=== PATIENT | female | born 1955 | race Caucasian/White ===

== ENCOUNTER → 2018-04-22 12:13 | Outpatient (CLI) | payer BC, SELFPAY ==
[2018-04-22 15:37] LABS: Absolute Lymphocyte Count 2.57 X10^3/ul (0.83-4.51); Absolute Neutrophil Count 6.4 X10^3/uL (2.0-7.7); Basophil# 0.02 X10^3/uL; Basophil% 0.2 % (0-1); Eosinophil# 0.35 X10^3/uL; Eosinophils% 3.4 % (0-5); Hematocrit 35.6 % (37-47); Hemoglobin 10.9 g/dl (12.0-15.0); Lymphocyte # 2.57 X10^3/ul (4.0); Lymphocyte % 24.9 % (19-41); Mean Corp Hgb Conc 30.6 g/gl (32-36); Mean Corpuscular Hgb 29.2 pg (27.0-32.0); Mean Corpuscular Volume 95.4 fL (81-99); Mean Platelet Vol. 9.8 fl (6.2-12.0); Monocyte# 0.96 X10^3/uL; Monocyte% 9.3 % (0-10); Neutrophil % 62.1 % (47-70); Platelet Count 319 K/mm3 (150-450); RBC Distribution Width CV 14.8 % (11.6-14.6); RBC Distribution Width SD 51.7 fl (35.1-43.9); Red Blood Count 3.73 M/mm3 (4.2-5.4); White Blood Count 10.3 K/mm3 (4.4-11.0)
[2018-04-22 15:47] LABS: POSITIVE COUNT NO; POSITIVE DIFFERENTIAL NO; POSITIVE MORPHOLOGY NO
[2018-04-22 16:05] LABS: ALB/GLOB Ratio 0.8 RATIO (0.9-2.4); AST(SGOT) 16 U/L (15-37); Alanine Aminotransfer ALT/SGPT 22 U/L (13-56); Albumin, Serum 3.1 g/dL (3.2-5.0); Alkaline Phosphatase 91 U/L (45-117); Anion Gap 6 (5-15); BUN 21 mg/dL (7-18); Calcium,Total 8.7 mg/dL (8.5-10.1); Chloride 103 mmol/L (98-107); Creatinine, Serum 0.75 mg/dL (0.55-1.02); EST Glomerular Filtration Rate 83 mL/min (>60); Est Glom Filt Rate - Afr Amer 101 mL/min (>60); Free T3 1.1 pg/mL (2.18-3.98); Globulin 4.1 g/dL (2.2-4.2); Glucose 66 mg/dL (74-106); Potassium 4.5 mmol/L (3.5-5.1); Protein, Total 7.2 g/dL (6.4-8.2); Sodium Level 139 mmol/L (136-145); Thyroid Stim Hormone (TSH) 2.74 uIU/mL (0.358-3.74)
== END ==
PROVIDERS: Family Provider Family Medicine; PCP Family Medicine; Visit Provider Family Medicine
DX: E03.9 Hypothyroidism, unspecified (principal); Z51.81 Encounter for therapeutic drug level monitoring
CPT/HCPCS: 36415; 80053; 84439; 84443; 84481; 85025

== ENCOUNTER → 2018-07-16 09:27 | Outpatient (CLI) | payer BC, SELFPAY ==
--- NOTE | 2018-07-16 09:36 | US_ITS ---
HISTORY: ENLARGED LYMPH NODES EXAM/TECHNIQUE: US Head/Neck Soft Tissue: COMPARISON: None. FINDINGS: # of images incl. paperwork: 54 Interrogation of the soft tissues of the bilateral neck shows no suspicious masses or fluid collections. No lymphadenopathy is evident. US/Head/Neck Soft Tissue IMPRESSION: No abnormalities detected. at 0451 Reported and signed by: Jabier Yu MD Electronically Signed: Jabier Yu, at 4:50 EDT Tel , Service support ,
== END ==
PROVIDERS: Family Provider Family Medicine; PCP Family Medicine; Referring Provider Family Medicine; Visit Provider Family Medicine
DX: R22.1 Localized swelling, mass and lump, neck (principal)
CPT/HCPCS: 76536

== ENCOUNTER → 2018-07-22 07:49 | Outpatient (CLI) | payer BC, SELFPAY ==
[2018-07-20 08:43] VITALS: BMI 34.2
--- NOTE | 2018-07-22 07:53 | US_ITS ---
STUDY: ABDOMINAL ULTRASOUND - RIGHT UPPER QUADRANT REASON FOR VISIT: Female, 63 years old. Nausea and vomiting. Abdominal pain. TECHNIQUE: Ultrasound evaluation of the right upper quadrant was performed with real-time and static wilder-scale imaging. TECHNICAL QUALITY: Adequate. COMPARISON: None. FINDINGS: Liver: The liver measures 15.4 cm. There is a heterogeneous echogenicity of the liver. The bile ducts are within normal limits. There is hepatic color flow. The direction of portal flow is hepatopetal. There is no demonstrated mass lesion. Gallbladder: Normal distended gallbladder. The gallbladder wall measures 3 mm. There is a negative sonographic Cortez's sign. There is no pericholecystic fluid. 7 mm mobile intraluminal hyperechoic structure. Gallbladder sludge. Common Bile Duct (C.B.D.): The common bile duct measures 4.4 mm. Pancreas: Normal size of the head, body and tail of the pancreas. There is normal echogenicity of the pancreas. There is no demonstrated pancreatic mass or cyst. Right Kidney: Normal size of the right kidney. The right kidney measures 9.9 cm. Normal renal cortex. The right cortex measures 1.2 cm. There is no demonstrated renal mass or cyst. There is no right hydronephrosis. US/Gallbladder IMPRESSION: 7 mm mobile intraluminal gallbladder hyperechoic structure (suspected small nonshadowing stone versus sludge ball) Normal caliber CBD Hepatic steatosis Electronically Signed: Néstor Sun DO at 9:33 EDT Tel , Service support ,
== END ==
PROVIDERS: Family Provider Family Medicine; PCP Family Medicine; Referring Provider Surgery; Visit Provider Surgery
DX: R10.9 Unspecified abdominal pain (principal)
CPT/HCPCS: 76705

== ENCOUNTER → 2018-07-27 11:38 | Outpatient (CLI) | payer BC, SELFPAY ==
[2018-07-20 08:43] VITALS: BMI 34.2
[2018-07-27 14:00] LABS: Albumin, Serum 3.6 g/dL (3.2-5.0); BUN 19 mg/dL (7-18); BUN/Creat Ratio 22.8 RATIO (10-20); Chloride 100 mmol/L (98-107); Creatinine, Serum 0.84 mg/dL (0.55-1.02); EST Glomerular Filtration Rate 73 mL/min (>60); Est Glom Filt Rate - Afr Amer 89 mL/min (>60); Glucose 71 mg/dL (74-106); Phosphorus 2.5 mg/dL (2.5-4.9); Potassium 3.8 mmol/L (3.5-5.1); Sodium Level 138 mmol/L (136-145)
[2018-07-27 14:06] LABS: Vitamin D,25 Hydroxy 21.6 ng/mL (29.95-100.01)
== END ==
PROVIDERS: Family Provider Family Medicine; PCP Family Medicine
DX: E55.9 Vitamin D deficiency, unspecified (principal); M81.0 Age-related osteoporosis without current pathological fracture
CPT/HCPCS: 36415; 80069; 82306

== ENCOUNTER 2018-07-30 08:29 | Day surgery (SDC) | payer BC, SELFPAY ==
[2018-07-20 08:43] VITALS: BMI 34.2
--- NOTE | 2018-07-20 08:54 | HP_ITS ---
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 Required: No Is patient in pain?: No Allergies cefaclor [From Ceclor] Allergy (Verified 07/20/18 08:47) Itching clarithromycin Allergy (Verified 07/20/18 08:47) Hives doxycycline Allergy (Verified 07/20/18 08:47) Itching Penicillins Allergy (Verified 07/20/18 08:47) Hives Sulfa (Sulfonamide Antibiotics) Allergy (Verified 07/20/18 08:47) Hives Medications Albuterol IH (ProAir) [Proair Hfa] 2 puff INHALATION PRN PRN 06/01/13 [History Confirmed 05/19/14] Aspirin 325 mg PO DAILY@0800 06/01/13 [History Confirmed 05/26/14] Atorvastatin Calcium [Lipitor] 80 mg PO QHS 06/01/13 [History Confirmed 05/19/14] Clopidogrel Bisulfate [Plavix] 75 mg PO DAILY 06/01/13 [History Confirmed 05/19/14] Diclofenac [Voltaren] 75 mg PO BIDCM 06/01/13 [History Confirmed 05/19/14] Fluoxetine [Prozac] 40 mg PO QHS 06/01/13 [History Confirmed 05/19/14] Levothyroxine Sodium [Levoxyl] 88 mcg PO DAILY 06/01/13 [History Confirmed 05/19/14] Metoprolol Tartrate [Lopressor (beta jackie)] 25 mg PO BID 06/01/13 [History Confirmed 05/19/14] Morphine Sulfate(Pf) Soln CONT INF DAILY 06/01/13 [History Confirmed 07/20/18] Oxycodone HCl/Acetaminophen [Percocet 5-325] 1 tab PO Q8H PRN PRN 06/01/13 [History Confirmed 05/19/14] Theophylline Anhydrous [Brandon-24] 400 mg PO DAILY 06/01/13 [History Confirmed 05/19/14] albuterol sulfate HFA 90 mcg/actuation aerosol inhaler 1 puff INHALATION Q6H PRN 07/20/18 [History Confirmed 07/20/18] alendronate 70 mg tablet 70 mg PO QWEEK 07/20/18 [History Confirmed 07/20/18] baclofen 10 mg tablet 10 mg PO DAILY 07/20/18 [History Confirmed 07/20/18] lorazepam 0.5 mg tablet 0.5 mg PO QHS PRN 07/20/18 [History Confirmed 07/20/18] omeprazole 20 mg capsule,delayed release 40 mg PO DAILY cap 07/20/18 [History Confirmed 07/20/18] ondansetron HCl 4 mg tablet 4 mg PO BID-TID PRN 07/20/18 [History Confirmed 07/20/18] tiotropium bromide 2.5 mcg/actuation mist for inhalation 2 puff INHALATION DAILY 07/20/18 [History Confirmed 07/20/18] zolpidem 5 mg tablet 5 mg PO QHS PRN 07/20/18 [History Confirmed 07/20/18] PFSH Medical History HTN (hypertension) (Chronic) Depression (Acute) Anxiety (Acute) Nausea and vomiting (Acute) GERD (gastroesophageal reflux disease) (Acute) Heart disease (Acute) spinal stimulator (Chronic) Spinal stenosis (Chronic) Chronic back pain (Chronic) Hypothyroidism (Chronic) Surgical History Previous back surgery (Acute) S/P hysterectomy (Acute) S/P carpal tunnel release (Acute) S/P knee surgery (Acute) S/P correction of deviated nasal septum (Acute) Status post thyroidectomy (Acute) H/O heart artery stent (Acute) Status post amputation of right foot (Acute) Family History Father Asthma Heart disease Grandmother Breast cancer Mother Heart disease Social History Smoking Status: Current every day smoker alcohol intake: never ROS General General: Yes weight change and fatigue Cardio Cardiovascular: Yes heart disease, high blood pressure, heart attack and heart stent; no murmur, pacemaker, atrial fibrillation, palpitations, shortness of breat with exertion or chest pain Psych Psychiatric: Yes depression and anxiety Resp Respiratory: Yes shortness of breath, Yes sleep apnea, Yes cough, Yes COPD, Yes asthma, No emphysema, No wheezing Gastro Gastrointestinal: No abdominal pain, Yes nausea or vomiting, No diarrhea, Yes constipation, No blood in stool, Yes acid reflux, No hemorrhoids, No ulcers, No gallbladder problem, No black,tarry stools Dima Hematologic: Yes blood thinners Exam Const General: cooperative Orientation: alert, oriented x3 Resp Effort & Inspection: normal respiratory effort Auscultation: clear to auscultation bilaterally Cardio Rate: regular rate Rhythm: regular rhythm Heart Sounds: no murmurs GI Inspection: non-distended Palpation: soft, nontender Extrem Other: Right foot amputation Assessment & Plan Problems 1. Bilious vomiting with nausea R11.14 2. Gastroesophageal reflux disease, esophagitis presence not specified K21.9 3. Tobacco abuse Z72.0 Plan 1. Patient reports she has intractable nausea and vomiting which is chronic and happens daily. She denies any abdominal pain. 2. I explained that it is possible that she is having biliary cause of her nausea and vomiting I will get an ultrasound of her gallbladder. 3. I will perform an EGD to check for gastritis and ulcers. She is on several ulcerogenic medications. I also explained that she would need to quit smoking for this to resolve. 4. I explained endoscopy in detail to the patient. I explained the risks including but not limited to stroke or heart attack with anesthesia, perforation of the GI tract, bleeding, infection. I explained that any of these could necessitate further emergency surgery. The patient understands and all questions were answered sufficiently. The patient wishes to proceed with procedure. Samir Brooks MD Pager: [facility] [address] [place] [address], [address] [place] [address] Office: Orders Orders: EGD Today K21.9, R11.2 Coding Level of Care Code Off vis,new,level 3 Diagnoses Bilious vomiting with nausea R11.14 ??Vomiting type: bilious vomiting Gastroesophageal reflux disease, esophagitis presence not specified K21.9 ??Esophagitis presence: esophagitis presence not specified Tobacco abuse Z72.0
[2018-07-30 08:48] VITALS: BP 103/58; PULSE 73; RESP 16; TEMP 36.2; O2SAT 95; BMI 33.0
--- NOTE | 2018-07-30 09:30 | IMM_PTH ---
PATIENT: TAJ BLANK LOC: EN U#:[id number] AGE/SX: 63/F ROOM: RE07/30/[address]: Dr. Samir Brooks MD : 1955 BED: DIS: 07/30/2018 SPEC #: [id number] RECD: 07/30/18 12:07 STATUS: MADHU FARSHAD #: [id number] DAYDAY: 07/30/18 09:[address]: Samir Brooks DEPT: IMMUNOHISTOCHEMISTRY RECD BY: Keke Christiansen ENTERED: 07/30/18 12:08 SP TYPE: IMMUNO OTHR DR: Dr. Chrystal Michel DO Tissues: Stomach, NOS Procedures: H Pylori (initial) PHYSICIAN & INSTITUTION [place] [id number] SPECIMEN INFORMATION: Tissue Source: Antrum biopsy Clinical Info: Bilious vomiting with nausea, GERD, esophagitis Specimen Number: [id number] CPT code: 98749 METHODOLOGY: Deparaffinized sections of prefer/formalin-fixed tissue or PAP/DQ stained slides are incubated with monoclonal/polyclonal antibodies/oligonucleotide probes. Localization is made via biotin free immunoperoxidase method. Appropriate controls are performed and reacted as expected. Results on target cell population are indicated in the following table: RESULTS: ANTIBODY / CLONE RESULT H Pylori (polyclonal) negative These tests were developed and their performance characteristics determined by Laboratory. They may not have been cleared or approved by the U.S. Food and Drug Administration. The FDA has determined that such clearance or approval is not necessary. INTERPRETATION: Antrum biopsy: Negative for Helicobacter pylori organisms. AM:suellen 08/02/18
--- NOTE | 2018-07-30 09:30 | EGD_PTH ---
PATIENT: TAJ BLANK LOC: EN U#:[id number] AGE/SX: 63/F ROOM: RE07/30/[address]: Dr. Samir Brooks MD : 1955 BED: DIS: 07/30/2018 SPEC #: [id number] RECD: 07/30/18 10:26 STATUS: MADHU FARSHAD #: [id number] DAYDAY: 07/30/18 09:[address]: Samir Brooks DEPT: SURGICAL PATHOLOGY RECD BY: Zach Emdonds ENTERED: 07/30/18 10:54 SP TYPE: EGD BIOPSY OTHR DR: Dr. Chrystal Michel, DO Tissues: Gastric mucous membrane Procedures: Surgery Specimen Level IV HEADER OPERATION: [place] ([facility] [place] PRE-OP DIAGNOSIS: Bilious vomiting with nausea, GERD, esophagitis TISSUE SUBMITTED: Antrum biopsy for H. pylori and path MICROSCOPIC DIAGNOSIS Antrum biopsy: Mild gastritis. See microscopic description and comment. SJ:suellen 08/02/18 COMMENT The results of immunohistochemistry for Helicobacter pylori will be reported separately ([id number]). MICROSCOPIC DESCRIPTION Slides are reviewed. The specimen shows fragments of gastric mucosa with chronic inflammatory cell infiltrates in the lamina propria consisting of lymphocytes and plasma cells, consistent with mild chronic gastritis. GROSS DESCRIPTION Received in fixative is one container labeled with the patient's name and designated antrum biopsy. The specimen consists of two irregular fragments of light benson soft tissue that in aggregate measure 0.7 x 0.2 x 0.1 cm. The specimen is totally submitted in one cassette. / MIGUEL:suellen 07/30/18 TC:3 CPT: 57558
[2018-07-30 09:55] VITALS: BP 103/58; BP 98/59; PULSE 74; RESP 18; TEMP 36.4; O2SAT 93
--- NOTE | 2018-07-30 09:59 | OP.ENDO_ITS ---
07/30/2018 Chrystal Michel [address] [place] [address] [place] [address] Re : Upper GI endoscopy procedure for Codi Owen Dear Dr. Michel This procedure was performed on Monday, July 30, 2018. My impressions and recommendations are as follows: Impressions : - The examination was otherwise normal. - No specimens collected. Recommendations : - Resume previous diet. - Discharge patient to home. - Return to my office in 1 week to discuss gallbladder removal. Call for appt [phone] - Resume Plavix (clopidogrel) at prior dose tomorrow. My findings are described in the full procedure note, which is enclosed. If I can be of further assistance, please feel free to contact me at Doctor phone number(s): , Work: . Sincerely, Samir Brooks MD 07/30/2018 9:59:15 AM This report has been signed electronically.
[2018-07-30 10:00] VITALS: BP 103/58; BP 106/55; PULSE 72; RESP 18; O2SAT 96
[2018-07-30 10:05] VITALS: BP 103/58; BP 106/60; PULSE 73; RESP 18; O2SAT 92
[2018-07-30 10:12] VITALS: BP 103/58; BP 96/59; PULSE 72; RESP 18; TEMP 37.2; O2SAT 93
[2018-07-30 10:22] VITALS: BP 103/58
== END 2018-07-30 10:31 | disposition home or self-care (01) ==
LOC: EN 08:30 → AC 08:31
PROVIDERS: Family Provider Family Medicine; PCP Family Medicine; Referring Provider Family Medicine; Visit Provider Surgery
PROC: 0DJ08ZZ Inspection of Upper Intestinal Tract, Via Natural or Artificial Opening Endoscopic (ICD-10-PCS; CPT 43235; principal; 2018-07-30 09:25)
DX: R11.2 Nausea with vomiting, unspecified (principal); K21.0 Gastro-esophageal reflux disease with esophagitis; K29.70 Gastritis, unspecified, without bleeding; D64.9 Anemia, unspecified; I51.9 Heart disease, unspecified; J44.9 Chronic obstructive pulmonary disease, unspecified; I10 Essential (primary) hypertension; E78.00 Pure hypercholesterolemia, unspecified; E03.9 Hypothyroidism, unspecified; M48.00 Spinal stenosis, site unspecified; G47.30 Sleep apnea, unspecified; M54.9 Dorsalgia, unspecified; G89.29 Other chronic pain; F32.9 Major depressive disorder, single episode, unspecified; F41.9 Anxiety disorder, unspecified; F17.200 Nicotine dependence, unspecified, uncomplicated; Z78.0 Asymptomatic menopausal state; Z79.02 Long term (current) use of antithrombotics/antiplatelets; Z79.82 Long term (current) use of aspirin; Z79.899 Other long term (current) drug therapy; Z87.19 Personal history of other diseases of the digestive system; Z95.5 Presence of coronary angioplasty implant and graft; Z86.73 Personal history of transient ischemic attack (TIA), and cerebral infarction without residual deficits
CPT/HCPCS: 43239; 88305; 88342; J7120

== ENCOUNTER 2018-08-13 10:52 | Day surgery (SDC) | payer BC, SELFPAY ==
[2018-08-06 09:07] VITALS: BMI 33.0
[2018-08-13] VITALS (10 sets, daily range): BP systolic 104–150; BP diastolic 40–96; PULSE 72–88; RESP 16–98; TEMP 36.4–36.7; O2SAT 90–98; BMI 34.2
[2018-08-13 11:37] LABS: Hematocrit 39.4 % (37-47); Hemoglobin 12.4 g/dl (12.0-15.0); Mean Corp Hgb Conc 31.5 g/gl (32-36); Mean Corpuscular Hgb 28.5 pg (27.0-32.0); Mean Corpuscular Volume 90.6 fL (81-99); Mean Platelet Vol. 8.8 fl (6.2-12.0); Platelet Count 382 K/mm3 (150-450); RBC Distribution Width CV 16.5 % (11.6-14.6); RBC Distribution Width SD 54.3 fl (35.1-43.9); Red Blood Count 4.35 M/mm3 (4.2-5.4); White Blood Count 13.1 K/mm3 (4.4-11.0)
[2018-08-13 11:39] LABS: Scan Indicated on CBC? Y/N NO
[2018-08-13 11:59] LABS: Thyroid Stim Hormone (TSH) 3.18 uIU/mL (0.358-3.74)
[2018-08-13] MEDS: Ciprofloxacin 400 MG/200 ML BAG 200 MG IV (12:15)
--- NOTE | 2018-08-13 12:30 | RAD_ITS ---
PROCEDURE: INTRAOPERATIVE CHOLANGIOGRAM DATE OF EXAMINATION: 08/13/2018 INDICATION: Female, 63 years old. Following a laparoscopic cholecystectomy an intraoperative cholangiogram was performed by the surgeon. FLUOROSCOPY TIME (if supplied): (0:14) minutes/seconds TECHNIQUE: Under fluoroscopic guidance an intraoperative cholangiogram was performed with serial digital images obtained. FINDINGS: There is normal opacification of the common bile duct, hepatic duct, right and left hepatic ducts. The ducts are normal in size. There is no mucosal irregularity or intraluminal filling defects. The contrast flows into the second portion of the duodenum. RAD/Cholangiogram/ O R,Initial IMPRESSION: Normal intraoperative cholangiogram. Electronically Signed: Amos Fermin MD at 12:39 EDT , Service support ,
--- NOTE | 2018-08-13 12:30 | GALL_PTH ---
PATIENT: TAJ BLANK LOC: [facility] [place] U#:[id number] AGE/SX: 63/F ROOM: RE08/13/[address]: Dr. Samir Brooks MD : 1955 BED: DIS: 08/13/2018 SPEC #: [id number] RECD: 08/13/18 16:37 STATUS: MADHU FARSHAD #: [id number] DAYDAY: 08/13/18 12:[address]: Samir Brooks DEPT: SURGICAL PATHOLOGY RECD BY: Zach Edmonds ENTERED: 08/16/18 10:24 SP TYPE: JOSLYN COATS DR: Dr. Chrystal Michel, DO Tissues: Gallbladder, NOS Procedures: Surgery Specimen Level III HEADER OPERATION: Laparoscopic cholecystectomy with IOC PRE-OP DIAGNOSIS: Sludge in gallbladder TISSUE SUBMITTED: Gallbladder MICROSCOPIC DIAGNOSIS Gallbladder, cholecystectomy: Mild chronic cholecystitis. No stones are identified in the container or in the gallbladder. SJ:suellen 08/17/18 MICROSCOPIC DESCRIPTION Slides are reviewed. GROSS DESCRIPTION Received is one container labeled with the patient's name and designated gallbladder. The specimen consists of a gallbladder measuring 9 cm in length and up to 2.5 cm in diameter. The external surface is pink-benson, smooth and glistening for the most part. Focally it is granular, hemorrhagic and contains cautery artifact. The gallbladder contains green-yellow mucoid bile. No stones are identified in the container or in the gallbladder. The mucosa is bile-stained and without any mass lesions. The gallbladder wall measures up to 0.2 cm in thickness. Pattern Puncher sections from the gallbladder and the cystic duct are submitted in one cassette. / SJ:suellen 08/16/18 TC:3 CPT: 34659
[2018-08-13 12:35] LABS: Allen Test POS; Base Excess 4 mmol/L (-2 to +2); Bicarbonate 27.8 mmol/L (22-26); Blood Gas Specimen Type ART; O2 Delivery Device Room Air; PO2 51 mmHG (75-100); SITE R Radial; SO2 87 % (95-99); Time Given 1215; Total Carbon Dioxide 29 mmol/L; pH 7.45 (7.35-7.45)
--- NOTE | 2018-08-13 12:45 | EKG12_ITS ---
Test Reason : PRE OP Blood Pressure : / mmHG Vent. Rate : 063 BPM Atrial Rate : 063 BPM P-R Int : 162 ms QRS Dur : 094 ms QT Int : 468 ms P-R-T Axes : 046 058 076 degrees QTc Int : 478 ms Normal sinus rhythm Poor R-Wave Progression Confirmed by ESTELLA HIRSCH, DAMARIS ([id number]), editorial director SYLVIA NANCE ([id number]) on 08/18/2018 1:41:05 PM Referred By: Samir Brooks Confirmed By:DAMARIS SORIA MD
[2018-08-13] MEDS: Bupiv/Epi 0.25% 30 ML Vial (13:51)
--- NOTE | 2018-08-13 13:57 | OP.PCM_ITS ---
Problem List (1) Biliary colic Status: Acute Report of Operation Date of Procedure: 08/13/18 Pre-Operative Diagnosis: Biliary colic with nausea vomiting Post-Operative Diagnosis: Same Surgery/Procedure Performed:: Laparoscopic cholecystectomy with cholangiogram Specimen's removed: Gallbladder Description of Procedure: After obtaining informed consent patient was brought back to the operating room. General anesthesia was induced. The abdomen was prepped and draped in usual sterile fashion. A small midline incision was made superior to the umbilicus and deepened to the level of fascia. The fascia was elevated and incised. Next the peritoneum was elevated and incised in the same fashion. Finger sweep was performed and the Tanner trocar was placed into the abdomen. The balloon was inflated. The abdomen was inflated to 15 mmHg. Next a camera was introduced into the abdomen and the abdomen was inspected. Next under direct visualization three 5-mm ports were placed one subxiphoid and 2 subcostal. Next the gallbladder was elevated and retracted toward the right shoulder. The peritoneum was stripped from the gallbladder. The infundibulum was located and retracted laterally. Next the triangle of Calot was dissected and the cystic duct and cystic artery were identified. Cholangiograms were performed. The Christensen clamp was used to clamp across the infundibulum and the catheter needle was inserted into the gallbladder. Under fluoroscopy contrast was instilled into the gallbladder and the common duct, cystic duct as well as proximal hepat ic ducts were identified. There was good filling of the duodenum. There were no filling defects noted in the common bile duct. The clamp was removed as well as the needle and the infundibulum was grasped once more. Three hemolock clips were placed across the cystic duct. The cystic duct was then divided leaving 2 clips on the stump. The cystic artery was clipped and divided in the same fashion. The hook cautery was then used to take the gallbladder off of the gallbladder bed. Hemostasis was obtained. Gallbladder fossa was irrigated and no active bleeding or bile leakage was noted. Next the camera switched to a 5 mm camera and introduced in the subxiphoid port. An Endopouch bag was placed through the umbilical port and the gallbladder was placed into it. The gallbladder was then removed through the umbilical incision. The camera was then reinserted through the umbilical port. The gallbladder fossa was inspected once more and noted to be hemostatic with no leaking bile. The abdomen was suctioned dry. The 5 mm ports were removed under direct visualization. The umbilical port was then removed and the air was removed from the abdomen. Next using an 0 Vicryl suture the umbilical fascia was closed in a [id number] fashion. The umbilical port site was irrigated local anesthetic was administered to all the incisions. All the incisions were closed with interrupted subcuticular 4-0 Monocryl sutures followed by Steri-Strips and dressings. The patient was awoken and taken to PACU in stable condition. - Admit VTE Documentation VTE Mechan Device Prophylaxis: SCD's
--- NOTE | 2018-08-13 14:04 | DCINST_ITS ---
Discharge Diet: Light diet - advance as tolerated Discharge Activity: Return to Normal Activity, May Not Drive - for 2-3 days or while taking narcotic pain medicataions., - - Do not drive, work heavy equipment or sign legal documents for 24 hours. May shower in (days): 1 - with the bandage in place. Additional Activity Instructions:: Pain medication may cause nausea. You should typically eat light foods as you take your pain medications. Pain medication may also cause constipation. If this is a problem for you, please discuss with your doctor. Call your doctor if your incision/area has: Continuous Slow Oozing, Sudden Increased Bleeding, Increased Pain/ Swelling, Increased Redness, Foul Smelling Discharge, Fever of 101 or Higher Call your doctor if you observe: Fever of 101 or Higher Suture Line Care: Avoid Pulling/Pushing, Avoid Pinching/Bending Additional Dressing/Incision Instructions:: Leave operative bandaids on for 2 days. When you remove dressing, leave Steri-Strips on until your follow-up appointment, or until the Steri-Strips fall off on their own. Allergies/Adverse Reactions: Allergies cefaclor [From Ceclor] Allergy (Verified 08/10/18 08:44) Itching clarithromycin Allergy (Verified 08/10/18 08:44) Hives doxycycline Allergy (Verified 08/10/18 08:44) Itching Penicillins Allergy (Verified 08/10/18 08:44) Hives Sulfa (Sulfonamide Antibiotics) Allergy (Verified 08/10/18 08:44) Hives Medications to take at Discharge Albuterol IH (ProAir) [Proair Hfa] 2 puff INHALATION PRN PRN 06/01/13 Aspirin 325 mg PO DAILY@0800 06/01/13 Atorvastatin Calcium [Lipitor] 80 mg PO QHS 06/01/13 Clopidogrel Bisulfate [Plavix] 75 mg PO DAILY 06/01/13 Diclofenac [Voltaren] 75 mg PO BIDCM 06/01/13 Fluoxetine [Prozac] 40 mg PO BID 06/01/13 Levothyroxine Sodium [Levoxyl] 88 mcg PO DAILY 06/01/13 Metoprolol Tartrate [Lopressor (beta jackie)] 25 mg PO BID 06/01/13 Morphine Sulfate(Pf) Soln 0 mg CONT INF DAILY 06/01/13 Theophylline Anhydrous [Brandon-24] 400 mg PO DAILY 06/01/13 alendronate 70 mg tablet 70 mg PO QWEEK 07/20/18 lorazepam 0.5 mg tablet 0.5 mg PO QHS PRN 07/20/18 omeprazole 20 mg capsule,delayed release 40 mg PO DAILY cap 07/20/18 ondansetron HCl 4 mg tablet 4 mg PO BID-TID PRN 07/20/18 tiotropium bromide 2.5 mcg/actuation mist for inhalation 2 puff INHALATION DAILY 07/20/18 zolpidem 5 mg tablet 5 mg PO QHS PRN 07/20/18 Mometasone/Formoterol [Dulera 200 Mcg/5 Mcg Inhaler] 2 puff IH DAILY 07/28/18 Oxycodone [Oxyir] 5 - 10 mg PO Q4H PRN PRN 4 Days #30 tablet 08/13/18 The following prescriptions were given: Oxycodone [Oxyir] 5 - 10 mg PO Q4H PRN PRN 4 Days #30 tablet PRN Reason: Pain Primary Care Physician: Chrystal Michel DO [Primary Care Provider] - Test Results: Test results from this visit will be discussed in further detail at your follow- up appointment, if applicable. Please Follow Up With: Samir Brooks MD When: Please call to schedule 2 week follow up appointment. [phone]
--- NOTE | 2018-08-13 14:39 | EKG12_ITS ---
Test Reason : Blood Pressure : / mmHG Vent. Rate : 082 BPM Atrial Rate : 082 BPM P-R Int : 148 ms QRS Dur : 100 ms QT Int : 426 ms P-R-T Axes : 053 050 073 degrees QTc Int : 497 ms Normal sinus rhythm Poor R-Wave Progression Confirmed by ESTELLA HIRSCH, DAMARIS ([id number]), order editor SYLVIA NANCE ([id number]) on 08/18/2018 1:41:41 PM Referred By: Samir Brooks Confirmed By:DAMARIS SORIA MD
[2018-08-13] MEDS: Ipratropium/Albuterol Sulfate 3 ML AMPUL.NEB INHALATION (14:42)
== END 2018-08-13 16:46 | disposition home or self-care (01) ==
LOC: SDC 10:54 → AC 10:55
PROVIDERS: Anesthesiology; Family Provider Family Medicine; PCP Family Medicine; Referring Provider Surgery; Visit Provider Surgery
PROC: (CPT 47610; principal; 2018-08-13 12:15)
DX: K81.1 Chronic cholecystitis (principal); Z79.899 Other long term (current) drug therapy; Z79.02 Long term (current) use of antithrombotics/antiplatelets; Z79.82 Long term (current) use of aspirin; K21.9 Gastro-esophageal reflux disease without esophagitis; E03.9 Hypothyroidism, unspecified; G89.29 Other chronic pain; I51.9 Heart disease, unspecified; F41.9 Anxiety disorder, unspecified; F32.9 Major depressive disorder, single episode, unspecified; I10 Essential (primary) hypertension
CPT/HCPCS: 47563; 36600; 74300; 76000; 82803; 84443; 84484; 85027; 88304; 93005; 94640; J7120; J0744; J2405

== ENCOUNTER → 2018-08-27 | Outpatient (CLI) | payer BC, SELFPAY ==
[2018-08-13 11:33] VITALS: BMI 34.2
--- NOTE | 2018-08-27 11:55 | RAD_ITS ---
STUDY: X-RAY CHEST REASON FOR EXAM: Female, 63 years old. Recent panic attack, dyspnea, COPD. TECHNIQUE: PA and lateral chest COMPARISON: 05/03/2015 FINDINGS: Pulmonary hyperinflation hyperlucency consistent with underlying COPD/emphysema with mild bibasilar atelectasis. Normal cardiomediastinal silhouette. Multilevel thoracolumbar rinku and screw fixation of the spine, surgical construct stable and intact. No acute osseous or upper abdominal process. RAD/Chest PA and Lateral IMPRESSION: COPD/emphysema, mild basilar atelectasis, no acute cardiopulmonary process. Electronically Signed: Mitch Key MD at 16:06 EDT Tel , Service support ,
== END | disposition home or self-care (01) ==
LOC: MTRAD 11:54
PROVIDERS: Family Provider Family Medicine; PCP Family Medicine; Referring Provider Family Medicine; Visit Provider Family Medicine
DX: J44.9 Chronic obstructive pulmonary disease, unspecified (principal); R07.9 Chest pain, unspecified; R06.00 Dyspnea, unspecified; R05 Cough
CPT/HCPCS: 71046

== ENCOUNTER 2018-09-30 08:01 | Inpatient (IN) | payer BC, SELFPAY ==
[2018-08-13 11:33] VITALS: BMI 34.2
[2018-09-30] VITALS (15 sets, daily range): BP systolic 110–143; BP diastolic 55–65; PULSE 56–89; RESP 12–20; TEMP 36.6–37.1; O2SAT 82–97; BMI 34.5; BMI 33.0
--- NOTE | 2018-09-30 08:18 | EKG12_ITS ---
Test Reason : Blood Pressure : / mmHG Vent. Rate : 078 BPM Atrial Rate : 078 BPM P-R Int : 154 ms QRS Dur : 096 ms QT Int : 432 ms P-R-T Axes : 043 034 066 degrees QTc Int : 492 ms Normal sinus rhythm Nonspecific ST abnormality Prolonged QT Abnormal ECG Confirmed by MIKE HIRSCH, BIENVENIDO ([id number]), primer expeditor and drier LADAN ACEVEDO ([id number]) on 10/01/2018 6:05:12 AM Referred By: AKANKSHA Confirmed By:BIENVENIDO MCKEON MD
--- NOTE | 2018-09-30 08:20 | ED.VISSUMM ---
- ER Visit Summary Date of Service: 09/30/18 Chief Complaint: Shortness of breath History of Present Illness: The patient is a 63 F who presents with shortness of breath that has been getting worse over the past couple days. Patient was recently seen at [place] [facility]. Patient with diagnosed with pneumonia and was started on steroids and an antibiotic. states that the patient's breathing is worse whenever she lays flat. Patient has been having a cough with green and clear sputum. Patient admits to subjective chills. Patient denies any chest pain. states that the patient's oxygen concentrator at home does not seem to be working well. He states that the patient was breathing better when she was on her CPAP machine that she uses at night. EMS administered a DuoNeb aerosol and IM Solu-Medrol. Physical Examination: Vital signs are stable except for pulse oximeter of 82% on room air. Patient is afebrile. Patient is in no acute distress. Oral mucosa is pink and moist. Neck is supple. Trachea is midline. There is no JVD noted. Heart was regular rate and rhythm. Lungs are clear anteriorly. Abdomen soft. Bowel sounds are normal. There is some mild suprapubic tenderness. There is no rebound or guarding noted. Cranial nerves II through XII are intact. There are no focal motor or sensory deficits noted. Test Results: EKG showed normal sinus rhythm with a rate of 78. CBC showed a mild leukocytosis of 13.3 with a hemoglobin of 11.4. Basic metabolic profile is normal. Lactate was normal. Troponin was less than 0.015. PA and lateral chest x-ray shows bibasilar infiltrates worse on the right. Emergency Department Course and Treatment: Patient was given albuterol aerosol here. Patient was placed on oxygen. Patient was given a dose of Levaquin here in the emergency department. Case was discussed with Dr. Alba. Patient will be admitted to the hospital. Disposition: Admit to hospital Impression: 1. Community-acquired pneumonia This note was generated with [employer] dictation software. It may contain incorrect words, spelling, and punctuation that were not noted in review of the chart prior to signing ED Disposition - Plan for ED Patient: Disposition: Acute Care Hospital [facility] Diagnosis: Community acquired pneumonia Referrals: Chrystal Michel DO [Primary Care Provider] -
--- NOTE | 2018-09-30 08:23 | ED.DCSUM_ITS ---
- ER Visit Summary Date of Service: 09/30/18 Chief Complaint: Shortness of breath History of Present Illness: The patient is a 63 F who presents with shortness of breath that has been getting worse over the past couple days. Patient was recently seen at [place] [facility]. Patient with diagnosed with pneumonia and was started on steroids and an antibiotic. states that the patient's breathing is worse whenever she lays flat. Patient has been having a cough with green and clear sputum. Patient admits to subjective chills. Patient denies any chest pain. states that the patient's oxygen concentrator at home does not seem to be working well. He states that the patient was breathing better when she was on her CPAP machine that she uses at night. EMS administered a DuoNeb aerosol and IM Solu-Medrol. Physical Examination: Vital signs are stable except for pulse oximeter of 82% on room air. Patient is afebrile. Patient is in no acute distress. Oral mucosa is pink and moist. Neck is supple. Trachea is midline. There is no JVD noted. Heart was regular rate and rhythm. Lungs are clear anteriorly. Abdomen soft. Bowel sounds are normal. There is some mild suprapubic tenderness. There is no rebound or guarding noted. Cranial nerves II through XII are intact. There are no focal motor or sensory deficits noted. Test Results: EKG showed normal sinus rhythm with a rate of 78. CBC showed a mild leukocytosis of 13.3 with a hemoglobin of 11.4. Basic metabolic profile is normal. Lactate was normal. Troponin was less than 0.015. PA and lateral chest x-ray shows bibasilar infiltrates worse on the right. Emergency Department Course and Treatment: Patient was given albuterol aerosol here. Patient was placed on oxygen. Patient was given a dose of Levaquin here in the emergency department. Case was discussed with Dr. Alba. Patient will be admitted to the hospital. Disposition: Admit to hospital Impression: 1. Community-acquired pneumonia This note was generated with [employer] dictation software. It may contain incorrect words, spelling, and punctuation that were not noted in review of the chart prior to signing ED Disposition - Plan for ED Patient: Disposition: Acute Care Hospital [facility] Diagnosis: Community acquired pneumonia Referrals: Chrystal Michel DO [Primary Care Provider] -
[2018-09-30] MEDS: Albuterol 2.5 MG/3 ML VIAL.NEB. INHALATION (08:35)
[2018-09-30 08:39] LABS: Basophil# 0.02 X10^3/uL; Basophil% 0.2 % (0-1); Eosinophil# 0.17 X10^3/uL; Eosinophils% 1.3 % (0-5); Hematocrit 37.3 % (37-47); Hemoglobin 11.4 g/dl (12.0-15.0); Lymphocyte % 24.9 % (19-41); Mean Corp Hgb Conc 30.6 g/gl (32-36); Mean Corpuscular Hgb 28.4 pg (27.0-32.0); Mean Corpuscular Volume 92.8 fL (81-99); Mean Platelet Vol. 9.3 fl (6.2-12.0); Monocyte# 0.71 X10^3/uL; Monocyte% 5.4 % (0-10); Neutrophil # 9.02 X10^3/uL (2.7-7.7); Neutrophil % 67.9 % (47-70); POSITIVE COUNT NO; POSITIVE DIFFERENTIAL NO; POSITIVE MORPHOLOGY NO; Platelet Count 443 K/mm3 (150-450); RBC Distribution Width CV 17.4 % (11.6-14.6); RBC Distribution Width SD 58.4 fl (35.1-43.9); Red Blood Count 4.02 M/mm3 (4.2-5.4); White Blood Count 13.3 K/mm3 (4.4-11.0)
[2018-09-30 08:54] LABS: Anion Gap 8 (5-15); BUN 13 mg/dL (7-18); BUN/Creat Ratio 14.9 RATIO (10-20); Calcium,Total 8.9 mg/dL (8.5-10.1); Chloride 103 mmol/L (98-107); Creatinine, Serum 0.87 mg/dL (0.55-1.02); EST Glomerular Filtration Rate 70 mL/min (>60); Est Glom Filt Rate - Afr Amer 85 mL/min (>60); Estimated Creatinine Clearance 78.36 ml/min; Glucose 87 mg/dL (74-106); Potassium 3.8 mmol/L (3.5-5.1); Sodium Level 144 mmol/L (136-145)
--- NOTE | 2018-09-30 08:55 | RAD_ITS ---
STUDY: X-RAY CHEST REASON FOR EXAM: Female, 63 years old. Shortness of breath. TECHNIQUE: AP and lateral views of the chest. COMPARISON: Comparison is made with prior examination dated September 02, 2018. FINDINGS: EKG electrodes are seen. There now is evidence of a focal infiltrate in the right lower lobe with blunting of the right costo phrenic angle. Increased markings at the left lung base with mild blunting of the left costophrenic angle. Faint nodular densities are seen in the lateral aspect of the right hemithorax. This may represent healing right rib fractures. Normal size heart. Normal mediastinum and gage. Normal visualized pulmonary arteries. There is atherosclerotic tortuosity of the aortic arch and descending thoracic aorta. There are diffuse degenerative changes of the visualized thoracic spine. Prior screw and rinku fixation of the lower thoracic and lumbar spine. There is no demonstrated abnormality of the visualized soft tissue structures of the upper abdomen. RAD/Chest PA and Lateral IMPRESSION: Bibasilar infiltrates worse on the right side with blunting of the costophrenic angles worse on the right side. Nodular densities in the right hemithorax as described. These most likely represent healing rib fractures. Electronically Signed: Luis Antonio Mota, at 9:33 EDT , Service support ,
[2018-09-30 09:02] LABS: Lactic Acid 0.9 mmol/L (0.4-2.0)
[2018-09-30] MEDS: levoFLOXacin IV 750 MG/150 ML BAG 100 MG IV (09:45)
--- NOTE | 2018-09-30 09:48 | NURSING ---
DR THOMPSON FOR DR MARX
--- NOTE | 2018-09-30 09:48 | NURSING ---
PCU CAP, ACUTE HYPOXIC RESP INSUFF KORAM
[2018-09-30 09:50] LABS: Bacteria 0 SEEN /hpf (None Seen); Mucous, Urine 0 SEEN /hpf (<or=2+); Red Blood Cells-Urine 0 SEEN /hpf (0-5); White Blood Cells 0 SEEN /hpf (0-5)
[2018-09-30 09:52] LABS: Color, Urine Yellow (Yellow); Glucose, Dipstick Normal (Normal); Ketone-Dipstick Negative (Negative); Leukocyte Esterase-Dipstick Negative /ul (Negative); Nitrite-Dipstick Negative (Negative); Occult Blood-Urine 10 /ul (Negative); Protein-Dipstick Negative (Negative); Urine Bilirubin Dipstick Negative (Negative); Urine Clarity Clear (Clear); Urine Urobilinogen Normal (Normal); Urine pH 6.5 (5.0 - 8.0)
[2018-09-30 09:58] LABS: Squamous Epithelial Cells - UA 0-5 SEEN /hpf (5-10)
--- NOTE | 2018-09-30 11:31 | PCM.HP.STD ---
History of Present Illness Date of Admission: 09/30/18 Chief Complaint: shortness of breath The patient is a 63 year old F with an extensive past medical history as listed. She was admitted through the ED on 09/30/2018 with a complaint of shortness of breath for the past 2 days. She also had assisted cough productive of greenish sputum. Shortness of breath had been worsening and her oxygen which she usually uses intermittently at home have not been helping. Of note, patient was seen a few days ago at [facility] and was told she had pneumonia and was given prednisone and breathing treatments. However symptoms persisted so she decided to come in today. She denied any fever but did admit to chills. Vitals were stable in the ED and she was requiring 3 L of oxygen saturating around 94%. CBC showed white cell count of 13.3 and BMP was essentially unremarkable. Chest x-ray showed bilateral lower lobe infiltrates worse on the right with blunting of costophrenic angles worse on right side, and nodular densities in right hemithorax, most likely representing healing rib fractures. EKG showed no acute ST changes. She has been admitted to be managed for community-acquired pneumonia. [] Past Medical History Past Medical History (Chronic Problems): Chronic Problems HTN (hypertension) (Chronic) spinal stimulator (Chronic) Spinal stenosis (Chronic) Chronic back pain (Chronic) Hypothyroidism (Chronic) Medical History: Medical History HTN (hypertension) (Chronic) I10 Depression (Acute) F32.9 Anxiety (Acute) F41.9 Nausea and vomiting (Acute) R11.2 GERD (gastroesophageal reflux disease) (Acute) K21.9 Heart disease (Acute) I51.9 spinal stimulator (Chronic) Spinal stenosis (Chronic) M48.00 Chronic back pain (Chronic) M54.9, G89.29 Hypothyroidism (Chronic) E03.9 Allergies cefaclor [From Ceclor] Allergy (Verified 09/30/18 08:22) Itching clarithromycin Allergy (Verified 09/30/18 08:22) Hives doxycycline Allergy (Verified 09/30/18 08:22) Itching Penicillins Allergy (Verified 09/30/18 08:22) Hives Sulfa (Sulfonamide Antibiotics) Allergy (Verified 09/30/18 08:22) Hives Home Medications: Ambulatory Orders Medication Instructions Recorded Albuterol IH (ProAir) [Proair Hfa] 2 puff INHALATION PRN PRN 06/01/13 Aspirin 325 mg PO DAILY@0800 06/01/13 Atorvastatin Calcium [Lipitor] 80 mg PO QHS 06/01/13 Clopidogrel Bisulfate [Plavix] 75 mg PO DAILY 06/01/13 Diclofenac [Voltaren] 75 mg PO BIDCM 06/01/13 Fluoxetine [Prozac] 40 mg PO BID 06/01/13 Metoprolol Tartrate [Lopressor 25 mg PO BID 06/01/13 (beta jackie)] Theophylline Anhydrous [Brandon-24] 400 mg PO DAILY 06/01/13 alendronate 70 mg tablet 70 mg PO QWEEK 07/20/18 omeprazole 20 mg capsule,delayed 40 mg PO DAILY cap 07/20/18 release tiotropium bromide 2.5 2 puff INHALATION DAILY 07/20/18 mcg/actuation mist for inhalation Abaloparatide [Tymlos] 1.56 ml SQ DAILY 09/30/18 Baclofen 10 mg PO DAILY 09/30/18 Bupropion HCl [Bupropion Xl] 300 mg PO DAILY 09/30/18 Calcium Carbonate [Calcium] 600 mg PO DAILY 09/30/18 Docusate Sodium [Stool Softener] 100 mg PO DAILY 09/30/18 Levothyroxine [Synthroid] 88 mcg PO DAILY 09/30/18 Oxycodone HCl/Acetaminophen 1 - 2 tablet PO Q6H PRN PRN 09/30/18 [Percocet 7.5-325 mg Tablet] Trazodone ER [Oleptro Er] 150 mg PO DAILY 09/30/18 Surgical History: Surgical History (Last Updated 08/06/18 @ 08:56 by Leanna Short) Previous back surgery (Acute) Z98.890 S/P hysterectomy (Acute) Z90.710 S/P carpal tunnel release (Acute) Z98.890 S/P knee surgery (Acute) Z98.890 S/P correction of deviated nasal septum (Acute) Z98.890 Status post thyroidectomy (Acute) Z98.890 H/O heart artery stent (Acute) Z95.5 x 5 in 2010 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 Denies: Anorexia, Fever Eyes: Denies: Blurred vision HEENT: Denies: Head Aches, Sinus Congestion, Sinus Drainage Cardiovascular: Denies: Chest Pain, Chest Pressure, Chest Tightness, Light Headedness, Orthopnea, Palpitations, Paroxysmal Noc. Dyspnea, Syncope Respiratory: Reports: Cough, Shortness of Breath, Shortness of breath at rest, Shortness of breath upon exertion, Sputum production, Wheezing. Denies: Pleuritic Pain Gastrointestinal: Denies: Abdominal Pain, Nausea, Vomiting Genitourinary: Denies: Dysuria Musculoskeletal: Denies: Joint Pain, Joint Tenderness Skin: Denies: Rash, Wounds Neurological: Reports: Balance problems Psychiatric: Denies: Anxiety, Depression, Homicidal Ideations, Suicidal Ideations Hematologic/ Lymphatic: Denies: Easy Bruising, Easy Bleeding VTE Information - Inpt Only VTE Present on Admission: No VTE Pharm Prophylaxis ordered?: Yes Patient Problems: Active and Suspected Problems Community acquired pneumonia (Acute) - Physical Exam General: Alert, Oriented x3, Cooperative, No apparent distress, Lethargic HEENT: Atraumatic, PERRLA, EOMI, Normocephalic Oral: Dry Mucosa Neck: Supple, No JVD, Negative Carotid Bruits Lungs: - - coarse crackles in lower lung prasad bilaterally, no wheezes. on 2L of oxygen Cardiovascular: Regular rate, Regular Rhythm, Normal S1, Normal S2, No murmurs Abdomen: Bowel Sounds Present, Soft, Non Tender, Non-Distended Extremities: No clubbing, No cyanosis, No edema, Capillary Refill Less than 3 Seconds Skin: No rashes, No breakdown Musculoskeletal: No Tenderness to Palpation of Joints or Extremities Lymphatic: No Cervical, Supraclavicular, or Inguinal Adenopathy Neurological: Cranial nerves II-XII grossly intact, Neuro grossly intact, Motor Exam 5/5 strength throughout Psych/Mental Status: Normal Affect, Appropriate, Alert and oriented to time, place, person, mood and affect Vital Signs Temp Pulse Resp BP Pulse Ox 98 F 73 16 110/60 94 09/30/18 10:57 09/30/18 10:57 09/30/18 10:57 09/30/18 10:57 09/30/18 10:57 Oxygen Flow Rate (L/min) 3 Oxygen Delivery Method Nasal Cannula Weight: 157 lb 13.616 oz Body Mass Index (BMI) 33.0 Laboratory Tests Past 24 Hrs 09/30/18 09/30/18 09/30/18 08:20 08:20 08:20 WBC 13.3 H RBC 4.02 L Hgb 11.4 L Hct 37.3 MCV 92.8 MCH 28.4 MCHC 30.6 L RDW 17.4 H RDW Differential 58.4 H Plt Count 443 MPV 9.3 Immature Gran % (Auto) 0.300 Neut % (Auto) 67.9 Lymph % (Auto) 24.9 Vance % (Auto) 5.4 Eos % (Auto) 1.3 Baso % (Auto) 0.2 Absolute Neuts (auto) 9.0 H Absolute Lymphs (auto) 3.30 Total Counted Not Reportable Sodium 144 Potassium 3.8 Chloride 103 Carbon Dioxide 33.0 H Anion Gap 8 BUN 13 Creatinine 0.87 Estim Creat Clear Calc 78.36 Est GFR (MDRD) Af Amer 85 Est GFR (MDRD) Non-Af 70 BUN/Creatinine Ratio 14.9 Glucose 87 Lactic Acid 0.9 Calcium 8.9 Troponin I < 0.015 Urine Color Urine Clarity Urine pH Ur Specific Newberry Urine Protein Urine Glucose (UA) Urine Ketones Urine Occult Blood Urine Nitrite Urine Bilirubin Urine Urobilinogen Ur Leukocyte Esterase Urine RBC Urine WBC Ur Squamous Epith Cells Urine Bacteria Urine Mucus 09/30/18 09:30 WBC RBC Hgb Hct MCV MCH MCHC RDW RDW Differential Plt Count MPV Immature Gran % (Auto) Neut % (Auto) Lymph % (Auto) Vance % (Auto) Eos % (Auto) Baso % (Auto) Absolute Neuts (auto) Absolute Lymphs (auto) Total Counted Sodium Potassium Chloride Carbon Dioxide Anion Gap BUN Creatinine Estim Creat Clear Calc Est GFR (MDRD) Af Amer Est GFR (MDRD) Non-Af BUN/Creatinine Ratio Glucose Lactic Acid Calcium Troponin I Urine Color Yellow Urine Clarity Clear Urine pH 6.5 Ur Specific Newberry 1.010 Urine Protein Negative Urine Glucose (UA) Normal Urine Ketones Negative Urine Occult Blood 10 H Urine Nitrite Negative Urine Bilirubin Negative Urine Urobilinogen Normal Ur Leukocyte Esterase Negative Urine RBC 0 SEEN Urine WBC 0 SEEN Ur Squamous Epith Cells 0-5 SEEN Urine Bacteria 0 SEEN Urine Mucus 0 SEEN Diagnostic Data Chest X-Ray 09/30/18 08:55 IMPRESSION: Bibasilar infiltrates worse on the right side with blunting of the costophrenic angles worse on the right side. Nodular densities in the right hemithorax as described. These most likely represent healing rib fractures. Electronically Signed: Luis Antonio Burnsleblair, at 9:33 EDT , Service support , Assessment/Plan All Active Problems Biliary colic (Acute) Community acquired pneumonia (Acute) Previous back surgery (Acute) S/P hysterectomy (Acute) S/P carpal tunnel release (Acute) S/P knee surgery (Acute) S/P correction of deviated nasal septum (Acute) Status post thyroidectomy (Acute) H/O heart artery stent (Acute) Status post amputation of right foot (Acute) Depression (Acute) Anxiety (Acute) Nausea and vomiting (Acute) GERD (gastroesophageal reflux disease) (Acute) Heart disease (Acute) 63-year-old female admitted with a complaint of shortness of breath and productive cough 1. Community acquired pneumonia admit to PCU with telemetry CXR showed bilateral lower lobe infiltrates Check urine for strep and Legionella antigen. Sputum cultures. Noted with IV fluid normal saline at 100 cc x 1 bag. Start IV Levaquin 750 daily. Give breathing treatments. 2. Acute hypoxic respiratory insufficiency in setting of chronic respiratory failure Dose of oxygen at home periodically but was requiring and when she came in. Titrate oxygen to maintain saturation above 90%. Breathing treatments as under 1. . Hypertension: On metoprolol 4. Hypothyroidism: On Synthroid 5. GERD: On PPI 6. Depression: On fluoxetine and trazodone 7. Chronic back pain and osteoporosis: on baclofen, abaloparatide and calcium carbonate. DVT prophylaxis: Lovenox Code Visit Inpatient E&M: 40290 Init Hosp L3
--- NOTE | 2018-09-30 11:36 | HP.PCM_ITS ---
History of Present Illness Date of Admission: 09/30/18 Chief Complaint: shortness of breath The patient is a 63 year old F with an extensive past medical history as listed. She was admitted through the ED on 09/30/2018 with a complaint of shortness of breath for the past 2 days. She also had assisted cough productive of greenish sputum. Shortness of breath had been worsening and her oxygen which she usually uses intermittently at home have not been helping. Of note, patient was seen a few days ago at [facility] and was told she had pneumonia and was given prednisone and breathing treatments. However symptoms persisted so she decided to come in today. She denied any fever but did admit to chills. Vitals were stable in the ED and she was requiring 3 L of oxygen saturating around 94%. CBC showed white cell count of 13.3 and BMP was essentially unremarkable. Chest x- ray showed bilateral lower lobe infiltrates worse on the right with blunting of costophrenic angles worse on right side, and nodular densities in right hemithorax, most likely representing healing rib fractures. EKG showed no acute ST changes. She has been admitted to be managed for community-acquired pneumonia. [] Past Medical History Past Medical History (Chronic Problems): Chronic Problems HTN (hypertension) (Chronic) spinal stimulator (Chronic) Spinal stenosis (Chronic) Chronic back pain (Chronic) Hypothyroidism (Chronic) Medical History: Medical History HTN (hypertension) (Chronic) I10 Depression (Acute) F32.9 Anxiety (Acute) F41.9 Nausea and vomiting (Acute) R11.2 GERD (gastroesophageal reflux disease) (Acute) K21.9 Heart disease (Acute) I51.9 spinal stimulator (Chronic) Spinal stenosis (Chronic) M48.00 Chronic back pain (Chronic) M54.9, G89.29 Hypothyroidism (Chronic) E03.9 Allergies cefaclor [From Ceclor] Allergy (Verified 09/30/18 08:22) Itching clarithromycin Allergy (Verified 09/30/18 08:22) Hives doxycycline Allergy (Verified 09/30/18 08:22) Itching Penicillins Allergy (Verified 09/30/18 08:22) Hives Sulfa (Sulfonamide Antibiotics) Allergy (Verified 09/30/18 08:22) Hives Home Medications: Ambulatory Orders Medication Instructions Recorded Albuterol IH (ProAir) [Proair Hfa] 2 puff INHALATION PRN PRN 06/01/13 Aspirin 325 mg PO DAILY@0800 06/01/13 Atorvastatin Calcium [Lipitor] 80 mg PO QHS 06/01/13 Clopidogrel Bisulfate [Plavix] 75 mg PO DAILY 06/01/13 Diclofenac [Voltaren] 75 mg PO BIDCM 06/01/13 Fluoxetine [Prozac] 40 mg PO BID 06/01/13 Metoprolol Tartrate [Lopressor 25 mg PO BID 06/01/13 (beta jackie)] Theophylline Anhydrous [Brandon-24] 400 mg PO DAILY 06/01/13 alendronate 70 mg tablet 70 mg PO QWEEK 07/20/18 omeprazole 20 mg capsule,delayed 40 mg PO DAILY cap 07/20/18 release tiotropium bromide 2.5 2 puff INHALATION DAILY 07/20/18 mcg/actuation mist for inhalation Abaloparatide [Tymlos] 1.56 ml SQ DAILY 09/30/18 Baclofen 10 mg PO DAILY 09/30/18 Bupropion HCl [Bupropion Xl] 300 mg PO DAILY 09/30/18 Calcium Carbonate [Calcium] 600 mg PO DAILY 09/30/18 Docusate Sodium [Stool Softener] 100 mg PO DAILY 09/30/18 Levothyroxine [Synthroid] 88 mcg PO DAILY 09/30/18 Oxycodone HCl/Acetaminophen 1 - 2 tablet PO Q6H PRN PRN 09/30/18 [Percocet 7.5-325 mg Tablet] Trazodone ER [Oleptro Er] 150 mg PO DAILY 09/30/18 Surgical History: Surgical History (Last Updated 08/06/18 @ 08:56 by Leanna Short) Previous back surgery (Acute) Z98.890 S/P hysterectomy (Acute) Z90.710 S/P carpal tunnel release (Acute) Z98.890 S/P knee surgery (Acute) Z98.890 S/P correction of deviated nasal septum (Acute) Z98.890 Status post thyroidectomy (Acute) Z98.890 H/O heart artery stent (Acute) Z95.5 x 5 in 2010 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 Denies: Anorexia, Fever Eyes: Denies: Blurred vision HEENT: Denies: Head Aches, Sinus Congestion, Sinus Drainage Cardiovascular: Denies: Chest Pain, Chest Pressure, Chest Tightness, Light Headedness, Orthopnea, Palpitations, Paroxysmal Noc. Dyspnea, Syncope Respiratory: Reports: Cough, Shortness of Breath, Shortness of breath at rest, Shortness of breath upon exertion, Sputum production, Wheezing. Denies: Pleuritic Pain Gastrointestinal: Denies: Abdominal Pain, Nausea, Vomiting Genitourinary: Denies: Dysuria Musculoskeletal: Denies: Joint Pain, Joint Tenderness Skin: Denies: Rash, Wounds Neurological: Reports: Balance problems Psychiatric: Denies: Anxiety, Depression, Homicidal Ideations, Suicidal Ideations Hematologic/ Lymphatic: Denies: Easy Bruising, Easy Bleeding VTE Information - Inpt Only VTE Present on Admission: No VTE Pharm Prophylaxis ordered?: Yes Patient Problems: Active and Suspected Problems Community acquired pneumonia (Acute) - Physical Exam General: Alert, Oriented x3, Cooperative, No apparent distress, Lethargic HEENT: Atraumatic, PERRLA, EOMI, Normocephalic Oral: Dry Mucosa Neck: Supple, No JVD, Negative Carotid Bruits Lungs: - - coarse crackles in lower lung prasad bilaterally, no wheezes. on 2L of oxygen Cardiovascular: Regular rate, Regular Rhythm, Normal S1, Normal S2, No murmurs Abdomen: Bowel Sounds Present, Soft, Non Tender, Non-Distended Extremities: No clubbing, No cyanosis, No edema, Capillary Refill Less than 3 Seconds Skin: No rashes, No breakdown Musculoskeletal: No Tenderness to Palpation of Joints or Extremities Lymphatic: No Cervical, Supraclavicular, or Inguinal Adenopathy Neurological: Cranial nerves II-XII grossly intact, Neuro grossly intact, Motor Exam 5/5 strength throughout Psych/Mental Status: Normal Affect, Appropriate, Alert and oriented to time, place, person, mood and affect Vital Signs Temp Pulse Resp BP Pulse Ox 98 F 73 16 110/60 94 09/30/18 10:57 09/30/18 10:57 09/30/18 10:57 09/30/18 10:57 09/30/18 10:57 Oxygen Flow Rate (L/min) 3 Oxygen Delivery Method Nasal Cannula Weight: 157 lb 13.616 oz Body Mass Index (BMI) 33.0 Laboratory Tests Past 24 Hrs 09/30/18 09/30/18 09/30/18 08:20 08:20 08:20 WBC 13.3 H RBC 4.02 L Hgb 11.4 L Hct 37.3 MCV 92.8 MCH 28.4 MCHC 30.6 L RDW 17.4 H RDW Differential 58.4 H Plt Count 443 MPV 9.3 Immature Gran % (Auto) 0.300 Neut % (Auto) 67.9 Lymph % (Auto) 24.9 [place] % (Auto) 5.4 Eos % (Auto) 1.3 Baso % (Auto) 0.2 Absolute Neuts (auto) 9.0 H Absolute Lymphs (auto) 3.30 Total Counted Not Reportable Sodium 144 Potassium 3.8 Chloride 103 Carbon Dioxide 33.0 H Anion Gap 8 BUN 13 Creatinine 0.87 Estim Creat Clear Calc 78.36 Est GFR (MDRD) Af Amer 85 Est GFR (MDRD) Non-Af 70 BUN/Creatinine Ratio 14.9 Glucose 87 Lactic Acid 0.9 Calcium 8.9 Troponin I < 0.015 Urine Color Urine Clarity Urine pH Ur Specific [place] Urine Protein Urine Glucose (UA) Urine Ketones Urine Occult Blood Urine Nitrite Urine Bilirubin Urine Urobilinogen Ur Leukocyte Esterase Urine RBC Urine WBC Ur Squamous Epith Cells Urine Bacteria Urine Mucus 09/30/18 09:30 WBC RBC Hgb Hct MCV MCH MCHC RDW RDW Differential Plt Count MPV Immature Gran % (Auto) Neut % (Auto) Lymph % (Auto) [place] % (Auto) Eos % (Auto) Baso % (Auto) Absolute Neuts (auto) Absolute Lymphs (auto) Total Counted Sodium Potassium Chloride Carbon Dioxide Anion Gap BUN Creatinine Estim Creat Clear Calc Est GFR (MDRD) Af Amer Est GFR (MDRD) Non-Af BUN/Creatinine Ratio Glucose Lactic Acid Calcium Troponin I Urine Color Yellow Urine Clarity Clear Urine pH 6.5 Ur Specific [place] 1.010 Urine Protein Negative Urine Glucose (UA) Normal Urine Ketones Negative Urine Occult Blood 10 H Urine Nitrite Negative Urine Bilirubin Negative Urine Urobilinogen Normal Ur Leukocyte Esterase Negative Urine RBC 0 SEEN Urine WBC 0 SEEN Ur Squamous Epith Cells 0-5 SEEN Urine Bacteria 0 SEEN Urine Mucus 0 SEEN Diagnostic Data Chest X-Ray 09/30/18 08:55 IMPRESSION: Bibasilar infiltrates worse on the right side with blunting of the costophrenic angles worse on the right side. Nodular densities in the right hemithorax as described. These most likely represent healing rib fractures. Electronically Signed: Luis Antonio Mota, at 9:33 EDT , Service support , Assessment/Plan All Active Problems Biliary colic (Acute) Community acquired pneumonia (Acute) Previous back surgery (Acute) S/P hysterectomy (Acute) S/P carpal tunnel release (Acute) S/P knee surgery (Acute) S/P correction of deviated nasal septum (Acute) Status post thyroidectomy (Acute) H/O heart artery stent (Acute) Status post amputation of right foot (Acute) Depression (Acute) Anxiety (Acute) Nausea and vomiting (Acute) GERD (gastroesophageal reflux disease) (Acute) Heart disease (Acute) 63-year-old female admitted with a complaint of shortness of breath and productive cough 1. Community acquired pneumonia * admit to PCU with telemetry * CXR showed bilateral lower lobe infiltrates * Check urine for strep and Legionella antigen. Sputum cultures. * Noted with IV fluid normal saline at 100 cc x 1 bag. * Start IV Levaquin 750 daily. * Give breathing treatments. * 2. Acute hypoxic respiratory insufficiency in setting of chronic respiratory failure * Dose of oxygen at home periodically but was requiring and when she came in. * Titrate oxygen to maintain saturation above 90%. * Breathing treatments as under 1. . Hypertension: On metoprolol 4. Hypothyroidism: On Synthroid 5. GERD: On PPI 6. Depression: On fluoxetine and trazodone 7. Chronic back pain and osteoporosis: on baclofen, abaloparatide and calcium carbonate. DVT prophylaxis: Lovenox * * Code Visit Inpatient E&M: 28746 Init Hosp L3
[2018-09-30] MEDS: Ipratropium/Albuterol Sulfate 3 ML AMPUL.NEB INHALATION ×2 (14:31→19:14)
--- NOTE | 2018-09-30 14:57 | CPS ---
PT NCREASED TO 4 LPM...SAT 91% ON 4. NURSE AWARE OF CHANGE
[2018-09-30] MEDS: Diclofenac 75 MG Tablet PO (16:05)
[2018-09-30] MEDS: oxyCODONE 5 MG Tablet PO (16:05)
[2018-09-30] MEDS: FLUoxetine 20 MG Capsule 40 MG PO (22:32)
[2018-09-30] MEDS: Atorvastatin Calcium 80 MG Tablet PO (22:32)
[2018-09-30] MEDS: Metoprolol Tartrate 25 MG Tablet PO (22:33)
[2018-10-01] VITALS (17 sets, daily range): BP systolic 106–146; BP diastolic 51–88; PULSE 46–77; RESP 16–18; TEMP 36.4–37; O2SAT 86–97
[2018-10-01] MEDS: Levothyroxine 88 MCG Tablet PO (05:26)
[2018-10-01 05:52] LABS: Absolute Lymphocyte Count 2.66 X10^3/ul (0.83-4.51); Absolute Neutrophil Count 21.5 X10^3/uL (2.0-7.7); Basophil# 0.02 X10^3/uL; Basophil% 0.1 % (0-1); Hematocrit 37.3 % (37-47); Hemoglobin 11.3 g/dl (12.0-15.0); Lymphocyte # 2.66 X10^3/ul (4.0); Lymphocyte % 10.3 % (19-41); Mean Corp Hgb Conc 30.3 g/gl (32-36); Mean Corpuscular Hgb 28.3 pg (27.0-32.0); Mean Corpuscular Volume 93.5 fL (81-99); Mean Platelet Vol. 9.5 fl (6.2-12.0); Monocyte# 1.58 X10^3/uL; Monocyte% 6.1 % (0-10); Neutrophil # 21.46 X10^3/uL (2.7-7.7); Neutrophil % 83.1 % (47-70); Platelet Count 484 K/mm3 (150-450); RBC Distribution Width CV 17.6 % (11.6-14.6); RBC Distribution Width SD 58.4 fl (35.1-43.9); Red Blood Count 3.99 M/mm3 (4.2-5.4); White Blood Count 25.8 K/mm3 (4.4-11.0)
[2018-10-01 05:53] LABS: Differential Indicated SCAN CRITERIA MET; POSITIVE COUNT NO; POSITIVE DIFFERENTIAL YES; POSITIVE MORPHOLOGY NO
[2018-10-01 05:57] LABS: Anion Gap 5 (5-15); BUN 14 mg/dL (7-18); BUN/Creat Ratio 19.9 RATIO (10-20); Calcium,Total 8.7 mg/dL (8.5-10.1); Chloride 106 mmol/L (98-107); EST Glomerular Filtration Rate 89 mL/min (>60); Est Glom Filt Rate - Afr Amer 108 mL/min (>60); Estimated Creatinine Clearance 92.98 ml/min; Glucose 85 mg/dL (74-106); Potassium 4.3 mmol/L (3.5-5.1); Sodium Level 143 mmol/L (136-145)
[2018-10-01] MEDS: oxyCODONE 5 MG Tablet PO ×3 (06:11→22:44)
[2018-10-01] MEDS: Ipratropium/Albuterol Sulfate 3 ML AMPUL.NEB INHALATION ×5 (06:46→22:55)
[2018-10-01] MEDS: 0.9% NaCl Peripheral Flush Adult/Peds IV (10:00)
[2018-10-01] MEDS: levoFLOXacin IV 750 MG/150 ML BAG 100 MG IV (10:00)
[2018-10-01] MEDS: Calcium (Elemental) 500 MG Tablet PO (10:01)
[2018-10-01] MEDS: FLUoxetine 20 MG Capsule 40 MG PO ×2 (10:01→22:43)
[2018-10-01] MEDS: Diclofenac 75 MG Tablet PO ×2 (10:01→16:32)
[2018-10-01] MEDS: Enoxaparin 40 MG/0.4 ML Syringe SC (10:01)
[2018-10-01] MEDS: Metoprolol Tartrate 25 MG Tablet PO ×2 (10:01→22:41)
[2018-10-01] MEDS: Pantoprazole Sodium 40 MG Tablet PO (10:01)
[2018-10-01] MEDS: Baclofen 10 MG Tablet PO (10:01)
[2018-10-01] MEDS: Clopidogrel Bisulfate 75 MG Tablet PO (10:01)
[2018-10-01] MEDS: buPROPion (XL) 300 MG TABLET.XL PO (10:01)
[2018-10-01] MEDS: Aspirin 325 MG Tablet PO (10:01)
[2018-10-01] MEDS: Docusate Sodium 100 MG Capsule PO (10:02)
[2018-10-01] MEDS: traZODone 50 MG Tablet 150 MG PO (10:02)
--- NOTE | 2018-10-01 10:22 | PCM.PN.HOSP ---
Patient Problems: Active and Suspected Problems Community acquired pneumonia (Acute) Subjective: Patient seen and examined. She feels better today. Shortness of breath has improved slightly. She still coughing and is productive of brownish sputum. She denies any chest pain or palpitations, dizziness, diarrhea vomiting. Review of systems otherwise negative. She was weaned off of 4 L to 3 L of oxygen today. Labs and vitals reviewed. Vitals/I&O's: Vital Signs Temp Pulse Resp BP Pulse Ox 98 F 66 16 139/88 H 93 10/01/18 09:24 10/01/18 10:01 10/01/18 09:24 10/01/18 09:24 10/01/18 09:24 Oxygen Flow Rate (L/min) 3 Oxygen Delivery Method Nasal Cannula Weight: 157 lb 13.616 oz Body Mass Index (BMI) 33.0 Intake and Output for Last 24 Hours 09/29/18 09/30/18 10/01/18 23:59 23:59 23:59 Intake Total 1725 / 1725 120 / 120 Output Total 425 / 425 750 / 750 Balance 1300 / 1300 -630 / -630 General: Alert, Oriented x3, Cooperative, No apparent distress HEENT: Atraumatic, PERRLA, EOMI, Normocephalic Oral: Dry Mucosa Neck: Supple, No JVD, Negative Carotid Bruits Lungs: - - diminished breath sounds bibasally, no wheezes or crackles. on 3L of oxygen Cardiovascular: Regular rate, Regular Rhythm, Normal S1, Normal S2, No murmurs Abdomen: Bowel Sounds Present, Soft, Non Tender, Non-Distended Extremities: No clubbing, No cyanosis, No edema, Capillary Refill Less than 3 Seconds Skin: No rashes, No breakdown Musculoskeletal: No Tenderness to Palpation of Joints or Extremities Lymphatic: No Cervical, Supraclavicular, or Inguinal Adenopathy Neurological: Cranial nerves II-XII grossly intact, Neuro grossly intact, Motor Exam 5/5 strength throughout Psych/Mental Status: Normal Affect, Appropriate, Alert and oriented to time, place, person, mood and affect Microbiology Past 72 Hours 09/30/18 14:43 Urine, Clean Catch Streptococcus pneumoniae Antigen (M - Final 09/30/18 14:43 Urine, Clean Catch Legionella Antigen - Final Laboratory Results 10/01/18 05:08: WBC 25.8 H, RBC 3.99 L, Hgb 11.3 L, Hct 37.3, MCV 93.5, MCH 28.3, MCHC 30.3 L, RDW 17.6 H, RDW Differential 58.4 H, Plt Count 484 H, MPV 9.5, Immature Gran % (Auto) 0.400, Neut % (Auto) 83.1 H, Lymph % (Auto) 10.3 L, [place] % (Auto) 6.1, Eos % (Auto) 0.0, Baso % (Auto) 0.1, Absolute Neuts (auto) 21.5 H, Absolute Lymphs (auto) 2.66, Total Counted Not Reportable, Diff Path Review August10/01/18 05:08: Sodium 143, Potassium 4.3, Chloride 106, Carbon Dioxide 32.0, Anion Gap 5, BUN 14, Creatinine 0.70, Estim Creat Clear Calc 92.98, Est GFR (MDRD) Af Amer 108, Est GFR (MDRD) Non-Af 89, BUN/Creatinine Ratio 19.9, Glucose 85, Calcium 8.7 Current Medications Albuterol/Ipratropium (Duoneb) 3 ml INHALATION Q4HWA.RT [facility] Last Admin: 10/01/18 10:15 Dose: 3 ml Alendronate Sodium (Fosamax) 70 mg PO QWEEK [facility] Aspirin (Aspirin) 325 mg PO DAILY@0800 [facility] Last Admin: 10/01/18 10:01 Dose: 325 mg Atorvastatin Calcium (Lipitor) 80 mg PO QHS [facility] Last Admin: 09/30/18 22:32 Dose: 80 mg Baclofen (Lioresal) 10 mg PO DAILY [facility] Last Admin: 10/01/18 10:01 Dose: 10 mg Bupropion HCl (Wellbutrin Xl) 300 mg PO DAILY [facility] Last Admin: 10/01/18 10:01 Dose: 300 mg Calcium Carbonate (Os-Bean 500) 500 mg PO DAILY@1200 [facility] Last Admin: 10/01/18 10:01 Dose: 500 mg Clopidogrel Bisulfate (Plavix) 75 mg PO DAILY [facility] Last Admin: 10/01/18 10:01 Dose: 75 mg Dextrose (D50w Syringe) 0 gm IV X1 PRN; Protocol PRN Reason: Hypoglycemia Diclofenac Sodium (Voltaren) 75 mg PO BIDCM [facility] Last Admin: 10/01/18 10:01 Dose: 75 mg Docusate Sodium (Colace) 100 mg PO DAILY [facility] Last Admin: 10/01/18 10:02 Dose: 100 mg Enoxaparin Sodium (Lovenox) 40 mg SC DAILY@1000 [facility] Last Admin: 10/01/18 10:01 Dose: 40 mg Fluoxetine HCl (Prozac) 40 mg PO BID [facility] Last Admin: 10/01/18 10:01 Dose: 40 mg Glucagon () 1 mg IM .X1 PRN PRN Reason: Hypoglycemia Levofloxacin (Levaquin Iv) 750 mg in 150 mls @ 100 mls/hr IV Q24 [facility] Last Admin: 10/01/18 10:00 Dose: 100 mls/hr Levothyroxine Sodium (Synthroid) 88 mcg PO DAILY@0600 [facility] Last Admin: 10/01/18 05:26 Dose: 88 mcg Metoprolol Tartrate (Lopressor (Beta Karine)) 25 mg PO BID [facility] Last Admin: 10/01/18 10:01 Dose: 25 mg Non-Formulary Medication (Abaloparatide [Tymlos]) 0.04 ml SQ DAILY [facility] Last Admin: 10/01/18 10:02 Dose: 0.04 ml Non-Formulary Medication (Theophylline Anhydrous [Brandon-24]) 400 mg PO DAILY [facility] Ondansetron HCl (Zofran) 4 mg IV Q8H PRN PRN PRN Reason: NAUSEA/VOMITING Oxycodone HCl (Oxyir) 5 mg PO Q6H PRN PRN PRN Reason: PAIN Last Admin: 10/01/18 06:11 Dose: 5 mg Pantoprazole Sodium (Protonix) 40 mg PO DAILY [facility] Last Admin: 10/01/18 10:01 Dose: 40 mg Sodium Chloride () 5 - 15 ml IV UD PRN PRN Reason: SALINE FLUSH Last Admin: 10/01/18 10:00 Dose: 10 ml Trazodone HCl (Desyrel) 150 mg PO DAILY [facility] Last Admin: 10/01/18 10:02 Dose: 150 mg Medical Necessity - Tobacco Use Smoking Status: Heavy Smoker (>10/day) Tobacco Use: Cigarettes Assessment/Plan All Active Problems Biliary colic (Acute) Community acquired pneumonia (Acute) Previous back surgery (Acute) S/P hysterectomy (Acute) S/P carpal tunnel release (Acute) S/P knee surgery (Acute) S/P correction of deviated nasal septum (Acute) Status post thyroidectomy (Acute) H/O heart artery stent (Acute) Status post amputation of right foot (Acute) Depression (Acute) Anxiety (Acute) Nausea and vomiting (Acute) GERD (gastroesophageal reflux disease) (Acute) Heart disease (Acute) 63-year-old female admitted with a complaint of shortness of breath and productive cough 1. Community acquired pneumonia CXR showed bilateral lower lobe infiltrates feels better today. White cell count went up to 25.8 but I think it is due to the steroids that she was previously on. urine for strep and legionella antigen were negative. On IV levaquin on breathing treatments. 2. Chronic hypoxic respiratory failure Was requiring 4 L of oxygen yesterday was not on 3 L of oxygen which is at baseline. Titrate oxygen to maintain saturation above 90%. Breathing treatments as under 1. 3. Hypertension: Fairly controlled for age. On metoprolol 4. Hypothyroidism: On Synthroid 5. GERD: On PPI 6. Depression: On fluoxetine and trazodone 7. Chronic back pain and osteoporosis: on baclofen, abaloparatide and calcium carbonate. DVT prophylaxis: Lovenox Code Visit OBSV E&M: 89379 Subsequent observation care L3
--- NOTE | 2018-10-01 10:27 | PN_ITS ---
Patient Problems: Active and Suspected Problems Community acquired pneumonia (Acute) Subjective: Patient seen and examined. She feels better today. Shortness of breath has improved slightly. She still coughing and is productive of brownish sputum. She denies any chest pain or palpitations, dizziness, diarrhea vomiting. Review of systems otherwise negative. She was weaned off of 4 L to 3 L of oxygen today. Labs and vitals reviewed. Vitals/I&O's: Vital Signs Temp Pulse Resp BP Pulse Ox 98 F 66 16 139/88 H 93 10/01/18 09:24 10/01/18 10:01 10/01/18 09:24 10/01/18 09:24 10/01/18 09:24 Oxygen Flow Rate (L/min) 3 Oxygen Delivery Method Nasal Cannula Weight: 157 lb 13.616 oz Body Mass Index (BMI) 33.0 Intake and Output for Last 24 Hours 09/29/18 09/30/18 10/01/18 23:59 23:59 23:59 Intake Total 1725 / 1725 120 / 120 Output Total 425 / 425 750 / 750 Balance 1300 / 1300 -630 / -630 General: Alert, Oriented x3, Cooperative, No apparent distress HEENT: Atraumatic, PERRLA, EOMI, Normocephalic Oral: Dry Mucosa Neck: Supple, No JVD, Negative Carotid Bruits Lungs: - - diminished breath sounds bibasally, no wheezes or crackles. on 3L of oxygen Cardiovascular: Regular rate, Regular Rhythm, Normal S1, Normal S2, No murmurs Abdomen: Bowel Sounds Present, Soft, Non Tender, Non-Distended Extremities: No clubbing, No cyanosis, No edema, Capillary Refill Less than 3 Seconds Skin: No rashes, No breakdown Musculoskeletal: No Tenderness to Palpation of Joints or Extremities Lymphatic: No Cervical, Supraclavicular, or Inguinal Adenopathy Neurological: Cranial nerves II-XII grossly intact, Neuro grossly intact, Motor Exam 5/5 strength throughout Psych/Mental Status: Normal Affect, Appropriate, Alert and oriented to time, place, person, mood and affect Microbiology Past 72 Hours 09/30/18 14:43 Urine, Clean Catch Streptococcus pneumoniae Antigen (M - Final 09/30/18 14:43 Urine, Clean Catch Legionella Antigen - Final Laboratory Results 10/01/18 05:08: WBC 25.8 H, RBC 3.99 L, Hgb 11.3 L, Hct 37.3, MCV 93.5, MCH 28.3, MCHC 30.3 L, RDW 17.6 H, RDW Differential 58.4 H, Plt Count 484 H, MPV 9.5, Immature Gran % (Auto) 0.400, Neut % (Auto) 83.1 H, Lymph % (Auto) 10.3 L, [place] % (Auto) 6.1, Eos % (Auto) 0.0, Baso % (Auto) 0.1, Absolute Neuts (auto) 21.5 H, Absolute Lymphs (auto) 2.66, Total Counted Not Reportable, Diff Path Review August10/01/18 05:08: Sodium 143, Potassium 4.3, Chloride 106, Carbon Dioxide 32.0, Anion Gap 5, BUN 14, Creatinine 0.70, Estim Creat Clear Calc 92.98, Est GFR (MDRD) Af Amer 108, Est GFR (MDRD) Non-Af 89, BUN/Creatinine Ratio 19.9, Glucose 85, Calcium 8.7 Current Medications Albuterol/Ipratropium (Duoneb) 3 ml INHALATION Q4HWA.RT [facility] Last Admin: 10/01/18 10:15 Dose: 3 ml Alendronate Sodium (Fosamax) 70 mg PO QWEEK [facility] Aspirin (Aspirin) 325 mg PO DAILY@0800 [facility] Last Admin: 10/01/18 10:01 Dose: 325 mg Atorvastatin Calcium (Lipitor) 80 mg PO QHS [facility] Last Admin: 09/30/18 22:32 Dose: 80 mg Baclofen (Lioresal) 10 mg PO DAILY [facility] Last Admin: 10/01/18 10:01 Dose: 10 mg Bupropion HCl (Wellbutrin Xl) 300 mg PO DAILY [facility] Last Admin: 10/01/18 10:01 Dose: 300 mg Calcium Carbonate (Os-Bean 500) 500 mg PO DAILY@1200 [facility] Last Admin: 10/01/18 10:01 Dose: 500 mg Clopidogrel Bisulfate (Plavix) 75 mg PO DAILY [facility] Last Admin: 10/01/18 10:01 Dose: 75 mg Dextrose (D50w Syringe) 0 gm IV X1 PRN; Protocol PRN Reason: Hypoglycemia Diclofenac Sodium (Voltaren) 75 mg PO BIDCM [facility] Last Admin: 10/01/18 10:01 Dose: 75 mg Docusate Sodium (Colace) 100 mg PO DAILY [facility] Last Admin: 10/01/18 10:02 Dose: 100 mg Enoxaparin Sodium (Lovenox) 40 mg SC DAILY@1000 [facility] Last Admin: 10/01/18 10:01 Dose: 40 mg Fluoxetine HCl (Prozac) 40 mg PO BID [facility] Last Admin: 10/01/18 10:01 Dose: 40 mg Glucagon () 1 mg IM .X1 PRN PRN Reason: Hypoglycemia Levofloxacin (Levaquin Iv) 750 mg in 150 mls @ 100 mls/hr IV Q24 [facility] Last Admin: 10/01/18 10:00 Dose: 100 mls/hr Levothyroxine Sodium (Synthroid) 88 mcg PO DAILY@0600 [facility] Last Admin: 10/01/18 05:26 Dose: 88 mcg Metoprolol Tartrate (Lopressor (Beta Karine)) 25 mg PO BID [facility] Last Admin: 10/01/18 10:01 Dose: 25 mg Non-Formulary Medication (Abaloparatide [Tymlos]) 0.04 ml SQ DAILY [facility] Last Admin: 10/01/18 10:02 Dose: 0.04 ml Non-Formulary Medication (Theophylline Anhydrous [Brandon-24]) 400 mg PO DAILY [facility] Ondansetron HCl (Zofran) 4 mg IV Q8H PRN PRN PRN Reason: NAUSEA/VOMITING Oxycodone HCl (Oxyir) 5 mg PO Q6H PRN PRN PRN Reason: PAIN Last Admin: 10/01/18 06:11 Dose: 5 mg Pantoprazole Sodium (Protonix) 40 mg PO DAILY [facility] Last Admin: 10/01/18 10:01 Dose: 40 mg Sodium Chloride () 5 - 15 ml IV UD PRN PRN Reason: SALINE FLUSH Last Admin: 10/01/18 10:00 Dose: 10 ml Trazodone HCl (Desyrel) 150 mg PO DAILY [facility] Last Admin: 10/01/18 10:02 Dose: 150 mg Medical Necessity - Tobacco Use Smoking Status: Heavy Smoker (>10/day) Tobacco Use: Cigarettes Assessment/Plan All Active Problems Biliary colic (Acute) Community acquired pneumonia (Acute) Previous back surgery (Acute) S/P hysterectomy (Acute) S/P carpal tunnel release (Acute) S/P knee surgery (Acute) S/P correction of deviated nasal septum (Acute) Status post thyroidectomy (Acute) H/O heart artery stent (Acute) Status post amputation of right foot (Acute) Depression (Acute) Anxiety (Acute) Nausea and vomiting (Acute) GERD (gastroesophageal reflux disease) (Acute) Heart disease (Acute) 63-year-old female admitted with a complaint of shortness of breath and productive cough 1. Community acquired pneumonia * CXR showed bilateral lower lobe infiltrates * feels better today. White cell count went up to 25.8 but I think it is due to the steroids that she was previously on. * urine for strep and legionella antigen were negative. * On IV levaquin * on breathing treatments. * 2. Chronic hypoxic respiratory failure * Was requiring 4 L of oxygen yesterday was not on 3 L of oxygen which is at baseline. * Titrate oxygen to maintain saturation above 90%. * Breathing treatments as under 1. 3. Hypertension: Fairly controlled for age. On metoprolol 4. Hypothyroidism: On Synthroid 5. GERD: On PPI 6. Depression: On fluoxetine and trazodone 7. Chronic back pain and osteoporosis: on baclofen, abaloparatide and calcium carbonate. DVT prophylaxis: Lovenox * Code Visit OBSV E&M: 09231 Subsequent observation care L3
--- NOTE | 2018-10-01 10:41 | CPS ---
pt increased back to 4.5 lpm. nurse aware of change
[2018-10-01 14:24] LABS: Pathologist Review Reviewed
--- NOTE | 2018-10-01 14:57 | CASEMGMT ---
This RN CM to room to speak with pt regarding home oxygen and pt states that she is only supposed to be on 2liters at bedtime thru [facility] [employer] and pt states that she cannot have tanks because she can't wheel them at the same time as her wheelchair. Call to [facility] and they state that they have an 24hour continuous order for pt for 2liters of home oxygen but state that pt has not called for tanks in a year. Rep at [facility] aware that pt will need the m6 tanks at discharge and she states that they will go out once pt is home to re-evaluate all. Pt is updated on all at this time, voices understanding. Pt is currently on 4liters of oxygen at this time. Green sheet left on chart for possible increased home oxygen need at discharge. SStaten DEWAYNE LOPEZ
--- NOTE | 2018-10-01 15:25 | CASEMGMT ---
DEWAYNE LOPEZ assessment: Face to Face with patient for initial transition planning/care coordination assessment. RN JESSICA introduced self and role at [facility], pt voices understanding and consents to assessment at this time. Pt is sitting up in chair in no distress at this time. Pt is A/Ox3 at this time and answers all questions appropriately at this time. Care providers, pharmacy, and demographics verified at this time. PCP: Anand Specialists: EUGENE Gomes Preferred Pharmacy: [facility] Insurance: [place] Prescription Benefit: [place] Living Will/HPOA: Pt states has LW/HPOA and is aware that they are not on file at [facility] at this time. Pt states that her , Forrest Owen, is HPOA. LNOK: Forrest Owen, Living Arrangements: Pt states lives with in 1 story home with no steps in and states no concerns at home at this time. Pt states that her helps her get in and out of shower, helps her dress, drives and cooks meals. Transportation: Pt states drives and states no transportation concerns at this time. DME/HHC: Pt states has the following DME: grab bars, shower chair, cane, walker, w/c, raised toilet seat, cpap, and home oxygen thru [employer]. See previous note from this RN CM regarding home oxygen . Pt states has had HHC in the past and has been to [facility] in the past. Pt states her only concern with going home at time of discharge is her SOB. Pt is unemployed. Pt states quit smoking about 2 wks ago and was smoking 7 cigarettes daily prior to that. Pt states does not drink ETOH. Pt states no further questions/concerns/needs at this time. CM to follow for PT/OT and for any further discharge planning/needs. Advised pt to ask for CM if any further questions/concerns/needs arise, voices understanding. Pt Goal: Home Plan: Home, pending home oxygen testing to see if increased need(Green sheet on chart). SStaten DEWAYNE LOPEZ
--- NOTE | 2018-10-01 15:47 | EKG12_ITS ---
Test Reason : CP Blood Pressure : / mmHG Vent. Rate : 049 BPM Atrial Rate : 049 BPM P-R Int : 166 ms QRS Dur : 100 ms QT Int : 504 ms P-R-T Axes : 038 042 077 degrees QTc Int : 455 ms Sinus bradycardia Cannot rule out Inferior infarct , age undetermined Abnormal ECG Confirmed by ESTELLA HIRSCH, DAMARIS ([id number]), design editor SYLVIA NANCE ([id number]) on 10/06/2018 11:38:53 AM Referred By: DONNA Confirmed By:DAMARIS SORIA MD
[2018-10-01] MEDS: Atorvastatin Calcium 80 MG Tablet PO (22:40)
[2018-10-02] VITALS (20 sets, daily range): BP systolic 105–132; BP diastolic 55–61; PULSE 57–85; RESP 16–22; TEMP 36.2–37.1; O2SAT 90–95
[2018-10-02] MEDS: Ipratropium/Albuterol Sulfate 3 ML AMPUL.NEB INHALATION ×5 (04:30→19:14)
[2018-10-02] MEDS: Levothyroxine 88 MCG Tablet PO (06:07)
[2018-10-02] MEDS: oxyCODONE 5 MG Tablet PO ×3 (06:39→20:46)
[2018-10-02 07:32] LABS: Absolute Lymphocyte Count 2.58 X10^3/ul (0.83-4.51); Absolute Neutrophil Count 12.2 X10^3/uL (2.0-7.7); Basophil# 0.01 X10^3/uL; Basophil% 0.1 % (0-1); Eosinophil# 0.14 X10^3/uL; Eosinophils% 0.9 % (0-5); Hematocrit 38.5 % (37-47); Hemoglobin 11.7 g/dl (12.0-15.0); Lymphocyte # 2.58 X10^3/ul (4.0); Lymphocyte % 16.4 % (19-41); Mean Corp Hgb Conc 30.4 g/gl (32-36); Mean Corpuscular Hgb 28.6 pg (27.0-32.0); Mean Corpuscular Volume 94.1 fL (81-99); Mean Platelet Vol. 9.3 fl (6.2-12.0); Monocyte# 0.78 X10^3/uL; Neutrophil # 12.16 X10^3/uL (2.7-7.7); Neutrophil % 77.4 % (47-70); Platelet Count 502 K/mm3 (150-450); RBC Distribution Width CV 17.2 % (11.6-14.6); RBC Distribution Width SD 58.5 fl (35.1-43.9); Red Blood Count 4.09 M/mm3 (4.2-5.4); White Blood Count 15.7 K/mm3 (4.4-11.0)
[2018-10-02 07:41] LABS: POSITIVE COUNT NO; POSITIVE DIFFERENTIAL NO; POSITIVE MORPHOLOGY NO
--- NOTE | 2018-10-02 07:56 | CPS ---
O2 titrated from 4.5L to 5L
[2018-10-02] MEDS: Diclofenac 75 MG Tablet PO ×2 (07:59→17:41)
[2018-10-02] MEDS: Aspirin 325 MG Tablet PO (08:00)
[2018-10-02 08:02] LABS: Anion Gap 6 (5-15); BUN 16 mg/dL (7-18); BUN/Creat Ratio 21.5 RATIO (10-20); Calcium,Total 9.1 mg/dL (8.5-10.1); Chloride 101 mmol/L (98-107); Creatinine, Serum 0.74 mg/dL (0.55-1.02); EST Glomerular Filtration Rate 84 mL/min (>60); Est Glom Filt Rate - Afr Amer 101 mL/min (>60); Estimated Creatinine Clearance 87.95 ml/min; Glucose 93 mg/dL (74-106); Potassium 3.9 mmol/L (3.5-5.1); Sodium Level 142 mmol/L (136-145)
[2018-10-02] MEDS: traZODone 50 MG Tablet 150 MG PO (08:57)
[2018-10-02] MEDS: Baclofen 10 MG Tablet PO (08:58)
[2018-10-02] MEDS: Enoxaparin 40 MG/0.4 ML Syringe SC (08:59)
[2018-10-02] MEDS: Metoprolol Tartrate 25 MG Tablet PO ×2 (08:59→22:01)
[2018-10-02] MEDS: Clopidogrel Bisulfate 75 MG Tablet PO (09:00)
[2018-10-02] MEDS: buPROPion (XL) 300 MG TABLET.XL PO (09:01)
[2018-10-02] MEDS: FLUoxetine 20 MG Capsule 40 MG PO ×2 (09:01→22:01)
[2018-10-02] MEDS: Pantoprazole Sodium 40 MG Tablet PO (09:01)
[2018-10-02] MEDS: levoFLOXacin IV 750 MG/150 ML BAG 100 MG IV (09:03)
--- NOTE | 2018-10-02 11:35 | PCM.PN.HOSP ---
Patient Problems: Active and Suspected Problems Community acquired pneumonia (Acute) Subjective: Patient seen and examined. She said she had difficulty breathing during the night and required breathing treatments. She denied any fever or chills, palpitations or dizziness, chest pain, diarrhea or vomiting. Review of systems is otherwise negative. Labs and vitals reviewed. She is noted to be requiring increasing amounts of oxygen and was requiring up to 5 L of oxygen today. Her baseline is usually 3 L of oxygen. Vitals/I&O's: Vital Signs Temp Pulse Resp BP Pulse Ox 98.8 F 75 16 128/59 H 91 10/02/18 10:00 10/02/18 10:00 10/02/18 10:00 10/02/18 10:00 10/02/18 10:00 Oxygen Flow Rate (L/min) 5 Oxygen Delivery Method Nasal Cannula Weight: 157 lb 13.616 oz Body Mass Index (BMI) 33.0 Intake and Output for Last 24 Hours 09/30/18 10/01/18 10/02/18 23:59 23:59 23:59 Intake Total 1725 / 1725 740 / 740 480 / 480 Output Total 425 / 425 1650 / 1650 Balance 1300 / 1300 -910 / -910 480 / 480 General: Alert, Oriented x3, Cooperative, No apparent distress HEENT: Atraumatic, PERRLA, EOMI, Normocephalic Oral: Dry Mucosa Neck: Supple, No JVD, Negative Carotid Bruits Lungs: - - diminished breath sounds bibasally, no wheezes or crackles. on 5L of oxygen Cardiovascular: Regular rate, Regular Rhythm, Normal S1, Normal S2, No murmurs Abdomen: Bowel Sounds Present, Soft, Non Tender, Non-Distended Extremities: No clubbing, No cyanosis, No edema, Capillary Refill Less than 3 Seconds Skin: No rashes, No breakdown Musculoskeletal: No Tenderness to Palpation of Joints or Extremities Lymphatic: No Cervical, Supraclavicular, or Inguinal Adenopathy Neurological: Cranial nerves II-XII grossly intact, Neuro grossly intact, Motor Exam 5/5 strength throughout Psych/Mental Status: Normal Affect, Appropriate, Alert and oriented to time, place, person, mood and affect Microbiology Past 72 Hours 09/30/18 08:20 Blood Culture (Wb) - Anticubital Left Blood Culture - Preliminary No growth in 48 hours. 09/30/18 09:30 Blood Culture (Wb) #2 - Anticubital Left Blood Culture - Preliminary No growth in 48 hours. 09/30/18 14:43 Urine, Clean Catch Streptococcus pneumoniae Antigen (M - Final 09/30/18 14:43 Urine, Clean Catch Legionella Antigen - Final Laboratory Results 10/01/18 05:08: Diff Path Review Reviewed 10/02/18 07:08: WBC 15.7 H, RBC 4.09 L, Hgb 11.7 L, Hct 38.5, MCV 94.1, MCH 28.6, MCHC 30.4 L, RDW 17.2 H, RDW Differential 58.5 H, Plt Count 502 H, MPV 9.3, Immature Gran % (Auto) 0.200, Neut % (Auto) 77.4 H, Lymph % (Auto) 16.4 L, [place] % (Auto) 5.0, Eos % (Auto) 0.9, Baso % (Auto) 0.1, Absolute Neuts (auto) 12.2 H, Absolute Lymphs (auto) 2.58, Total Counted Not Reportable 10/02/18 07:08: Sodium 142, Potassium 3.9, Chloride 101, Carbon Dioxide 35.0 H, Anion Gap 6, BUN 16, Creatinine 0.74, Estim Creat Clear Calc 87.95, Est GFR (MDRD) Af Amer 101, Est GFR (MDRD) Non-Af 84, BUN/Creatinine Ratio 21.5 H, Glucose 93, Calcium 9.1 Current Medications Albuterol/Ipratropium (Duoneb) 3 ml INHALATION Q4HWA.RT [facility] Last Admin: 10/02/18 10:06 Dose: 3 ml Alendronate Sodium (Fosamax) 70 mg PO QWEEK [facility] Aspirin (Aspirin) 325 mg PO DAILY@0800 [facility] Last Admin: 10/02/18 08:00 Dose: 325 mg Atorvastatin Calcium (Lipitor) 80 mg PO QHS [facility] Last Admin: 10/01/18 22:40 Dose: 80 mg Baclofen (Lioresal) 10 mg PO DAILY [facility] Last Admin: 10/02/18 08:58 Dose: 10 mg Bupropion HCl (Wellbutrin Xl) 300 mg PO DAILY [facility] Last Admin: 10/02/18 09:01 Dose: 300 mg Calcium Carbonate (Os-Bean 500) 500 mg PO DAILY@1200 [facility] Last Admin: 10/01/18 10:01 Dose: 500 mg Clopidogrel Bisulfate (Plavix) 75 mg PO DAILY [facility] Last Admin: 10/02/18 09:00 Dose: 75 mg Dextrose (D50w Syringe) 0 gm IV X1 PRN; Protocol PRN Reason: Hypoglycemia [facility] Admin: 10/02/18 07:59 Dose: 75 mg Docusate Sodium (Colace) 100 mg PO DAILY [facility] Last Admin: 10/02/18 08:57 Dose: Not Given Enoxaparin Sodium (Lovenox) 40 mg SC DAILY@1000 [facility] Last Admin: 10/02/18 08:59 Dose: 40 mg Fluoxetine HCl (Prozac) 40 mg PO BID [facility] Last Admin: 10/02/18 09:01 Dose: 40 mg Glucagon () 1 mg IM .X1 PRN PRN Reason: Hypoglycemia Levofloxacin (Levaquin Iv) 750 mg in 150 mls @ 100 mls/hr IV Q24 [facility] Last Admin: 10/02/18 09:03 Dose: 100 mls/hr Levothyroxine Sodium (Synthroid) 88 mcg PO DAILY@0600 [facility] Last Admin: 10/02/18 06:07 Dose: 88 mcg Metoprolol Tartrate (Lopressor (Beta Karine)) 25 mg PO BID [facility] Last Admin: 10/02/18 08:59 Dose: 25 mg Non-Formulary Medication (Abaloparatide [Tymlos]) 0.04 ml SQ DAILY [facility] Last Admin: 10/02/18 08:56 Dose: 0.04 ml Ondansetron HCl (Zofran) 4 mg IV Q8H PRN PRN PRN Reason: NAUSEA/VOMITING Oxycodone HCl (Oxyir) 5 mg PO Q6H PRN PRN PRN Reason: PAIN Last Admin: 10/02/18 06:39 Dose: 5 mg Pantoprazole Sodium (Protonix) 40 mg PO DAILY [facility] Last Admin: 10/02/18 09:01 Dose: 40 mg Sodium Chloride () 5 - 15 ml IV UD PRN PRN Reason: SALINE FLUSH Last Admin: 10/01/18 10:00 Dose: 10 ml Trazodone HCl (Desyrel) 150 mg PO DAILY [facility] Last Admin: 10/02/18 08:57 Dose: 150 mg Medical Necessity - Tobacco Use Smoking Status: Heavy Smoker (>10/day) Tobacco Use: Cigarettes Assessment/Plan All Active Problems Biliary colic (Acute) Community acquired pneumonia (Acute) Previous back surgery (Acute) S/P hysterectomy (Acute) S/P carpal tunnel release (Acute) S/P knee surgery (Acute) S/P correction of deviated nasal septum (Acute) Status post thyroidectomy (Acute) H/O heart artery stent (Acute) Status post amputation of right foot (Acute) Depression (Acute) Anxiety (Acute) Nausea and vomiting (Acute) GERD (gastroesophageal reflux disease) (Acute) Heart disease (Acute) 63-year-old female admitted with a complaint of shortness of breath and productive cough 1. Community acquired pneumonia CXR showed bilateral lower lobe infiltrates wbc is trending down and is 15.7 today on IV levaquin. urine for strep and legionella antigen were negative. continue IV levaquin. continue breathing treatments 2. acute on Chronic hypoxic respiratory failure now on 5L of oxygen. baseline is 3L of oxygen continue breathing treatments and titrate oxygen to maintain sats >90% 3. Hypertension: Fairly controlled for age. On metoprolol 4. Hypothyroidism: On Synthroid 5. GERD: On PPI 6. Depression: On fluoxetine and trazodone 7. Chronic back pain and osteoporosis: on baclofen, abaloparatide and calcium carbonate. DVT prophylaxis: Lovenox Code Visit Inpatient E&M: 39008 [facility] Hosp L3
--- NOTE | 2018-10-02 11:42 | PN_ITS ---
Patient Problems: Active and Suspected Problems Community acquired pneumonia (Acute) Subjective: Patient seen and examined. She said she had difficulty breathing during the night and required breathing treatments. She denied any fever or chills, palpitations or dizziness, chest pain, diarrhea or vomiting. Review of systems is otherwise negative. Labs and vitals reviewed. She is noted to be requiring increasing amounts of oxygen and was requiring up to 5 L of oxygen today. Her baseline is usually 3 L of oxygen. Vitals/I&O's: Vital Signs Temp Pulse Resp BP Pulse Ox 98.8 F 75 16 128/59 H 91 10/02/18 10:00 10/02/18 10:00 10/02/18 10:00 10/02/18 10:00 10/02/18 10:00 Oxygen Flow Rate (L/min) 5 Oxygen Delivery Method Nasal Cannula Weight: 157 lb 13.616 oz Body Mass Index (BMI) 33.0 Intake and Output for Last 24 Hours 09/30/18 10/01/18 10/02/18 23:59 23:59 23:59 Intake Total 1725 / 1725 740 / 740 480 / 480 Output Total 425 / 425 1650 / 1650 Balance 1300 / 1300 -910 / -910 480 / 480 General: Alert, Oriented x3, Cooperative, No apparent distress HEENT: Atraumatic, PERRLA, EOMI, Normocephalic Oral: Dry Mucosa Neck: Supple, No JVD, Negative Carotid Bruits Lungs: - - diminished breath sounds bibasally, no wheezes or crackles. on 5L of oxygen Cardiovascular: Regular rate, Regular Rhythm, Normal S1, Normal S2, No murmurs Abdomen: Bowel Sounds Present, Soft, Non Tender, Non-Distended Extremities: No clubbing, No cyanosis, No edema, Capillary Refill Less than 3 Seconds Skin: No rashes, No breakdown Musculoskeletal: No Tenderness to Palpation of Joints or Extremities Lymphatic: No Cervical, Supraclavicular, or Inguinal Adenopathy Neurological: Cranial nerves II-XII grossly intact, Neuro grossly intact, Motor Exam 5/5 strength throughout Psych/Mental Status: Normal Affect, Appropriate, Alert and oriented to time, place, person, mood and affect Microbiology Past 72 Hours 09/30/18 08:20 Blood Culture (Wb) - Anticubital Left Blood Culture - Preliminary No growth in 48 hours. 09/30/18 09:30 Blood Culture (Wb) #2 - Anticubital Left Blood Culture - Preliminary No growth in 48 hours. 09/30/18 14:43 Urine, Clean Catch Streptococcus pneumoniae Antigen (M - Final 09/30/18 14:43 Urine, Clean Catch Legionella Antigen - Final Laboratory Results 10/01/18 05:08: Diff Path Review Reviewed 10/02/18 07:08: WBC 15.7 H, RBC 4.09 L, Hgb 11.7 L, Hct 38.5, MCV 94.1, MCH 28.6, MCHC 30.4 L, RDW 17.2 H, RDW Differential 58.5 H, Plt Count 502 H, MPV 9.3, Immature Gran % (Auto) 0.200, Neut % (Auto) 77.4 H, Lymph % (Auto) 16.4 L, [place] % (Auto) 5.0, Eos % (Auto) 0.9, Baso % (Auto) 0.1, Absolute Neuts (auto) 12.2 H, Absolute Lymphs (auto) 2.58, Total Counted Not Reportable 10/02/18 07:08: Sodium 142, Potassium 3.9, Chloride 101, Carbon Dioxide 35.0 H, Anion Gap 6, BUN 16, Creatinine 0.74, Estim Creat Clear Calc 87.95, Est GFR (MDRD) Af Amer 101, Est GFR (MDRD) Non-Af 84, BUN/Creatinine Ratio 21.5 H, Glucose 93, Calcium 9.1 Current Medications Albuterol/Ipratropium (Duoneb) 3 ml INHALATION Q4HWA.RT [facility] Last Admin: 10/02/18 10:06 Dose: 3 ml Alendronate Sodium (Fosamax) 70 mg PO QWEEK [facility] Aspirin (Aspirin) 325 mg PO DAILY@0800 [facility] Last Admin: 10/02/18 08:00 Dose: 325 mg Atorvastatin Calcium (Lipitor) 80 mg PO QHS [facility] Last Admin: 10/01/18 22:40 Dose: 80 mg Baclofen (Lioresal) 10 mg PO DAILY [facility] Last Admin: 10/02/18 08:58 Dose: 10 mg Bupropion HCl (Wellbutrin Xl) 300 mg PO DAILY [facility] Last Admin: 10/02/18 09:01 Dose: 300 mg Calcium Carbonate (Os-Bean 500) 500 mg PO DAILY@1200 [facility] Last Admin: 10/01/18 10:01 Dose: 500 mg Clopidogrel Bisulfate (Plavix) 75 mg PO DAILY [facility] Last Admin: 10/02/18 09:00 Dose: 75 mg Dextrose (D50w Syringe) 0 gm IV X1 PRN; Protocol PRN Reason: Hypoglycemia [facility] Last Admin: 10/02/18 07:59 Dose: 75 mg Docusate Sodium (Colace) 100 mg PO DAILY [facility] Last Admin: 10/02/18 08:57 Dose: Not Given Enoxaparin Sodium (Lovenox) 40 mg SC DAILY@1000 [facility] Last Admin: 10/02/18 08:59 Dose: 40 mg Fluoxetine HCl (Prozac) 40 mg PO BID [facility] Last Admin: 10/02/18 09:01 Dose: 40 mg Glucagon () 1 mg IM .X1 PRN PRN Reason: Hypoglycemia Levofloxacin (Levaquin Iv) 750 mg in 150 mls @ 100 mls/hr IV Q24 [facility] Last Admin: 10/02/18 09:03 Dose: 100 mls/hr Levothyroxine Sodium (Synthroid) 88 mcg PO DAILY@0600 [facility] Last Admin: 10/02/18 06:07 Dose: 88 mcg Metoprolol Tartrate (Lopressor (Beta Karine)) 25 mg PO BID [facility] Last Admin: 10/02/18 08:59 Dose: 25 mg Non-Formulary Medication (Abaloparatide [Tymlos]) 0.04 ml SQ DAILY [facility] Last Admin: 10/02/18 08:56 Dose: 0.04 ml Ondansetron HCl (Zofran) 4 mg IV Q8H PRN PRN PRN Reason: NAUSEA/VOMITING Oxycodone HCl (Oxyir) 5 mg PO Q6H PRN PRN PRN Reason: PAIN Last Admin: 10/02/18 06:39 Dose: 5 mg Pantoprazole Sodium (Protonix) 40 mg PO DAILY [facility] Last Admin: 10/02/18 09:01 Dose: 40 mg Sodium Chloride () 5 - 15 ml IV UD PRN PRN Reason: SALINE FLUSH Last Admin: 10/01/18 10:00 Dose: 10 ml Trazodone HCl (Desyrel) 150 mg PO DAILY [facility] Last Admin: 10/02/18 08:57 Dose: 150 mg Medical Necessity - Tobacco Use Smoking Status: Heavy Smoker (>10/day) Tobacco Use: Cigarettes Assessment/Plan All Active Problems Biliary colic (Acute) Community acquired pneumonia (Acute) Previous back surgery (Acute) S/P hysterectomy (Acute) S/P carpal tunnel release (Acute) S/P knee surgery (Acute) S/P correction of deviated nasal septum (Acute) Status post thyroidectomy (Acute) H/O heart artery stent (Acute) Status post amputation of right foot (Acute) Depression (Acute) Anxiety (Acute) Nausea and vomiting (Acute) GERD (gastroesophageal reflux disease) (Acute) Heart disease (Acute) 63-year-old female admitted with a complaint of shortness of breath and productive cough 1. Community acquired pneumonia * CXR showed bilateral lower lobe infiltrates * wbc is trending down and is 15.7 today * on IV levaquin. urine for strep and legionella antigen were negative. * continue IV levaquin. * continue breathing treatments * * 2. acute on Chronic hypoxic respiratory failure * now on 5L of oxygen. baseline is 3L of oxygen * continue breathing treatments and titrate oxygen to maintain sats >90% * 3. Hypertension: Fairly controlled for age. On metoprolol 4. Hypothyroidism: On Synthroid 5. GERD: On PPI 6. Depression: On fluoxetine and trazodone 7. Chronic back pain and osteoporosis: on baclofen, abaloparatide and calcium carbonate. DVT prophylaxis: Lovenox * Code Visit Inpatient E&M: 45961 Subs Hosp L3
[2018-10-02] MEDS: Calcium (Elemental) 500 MG Tablet PO (12:36)
[2018-10-02] MEDS: Atorvastatin Calcium 80 MG Tablet PO (22:00)
[2018-10-03] VITALS (40 sets, daily range): BP systolic 65–135; BP diastolic 21–66; PULSE 55–91; RESP 12–20; TEMP 36.3–37.2; O2SAT 86–96
[2018-10-03] MEDS: Sodium Chloride 0.65% 1 SPRAY SPRAY.BTL 2 SPRAY NASAL (01:16)
[2018-10-03] MEDS: oxyCODONE 5 MG Tablet PO (02:51)
[2018-10-03] MEDS: Ondansetron 4 MG/2 ML Vial IV (04:21)
[2018-10-03] MEDS: Levothyroxine 88 MCG Tablet PO (06:09)
[2018-10-03] MEDS: Ipratropium/Albuterol Sulfate 3 ML AMPUL.NEB INHALATION ×4 (06:35→18:55)
[2018-10-03 07:05] LABS: Absolute Lymphocyte Count 2.49 X10^3/ul (0.83-4.51); Absolute Neutrophil Count 9.8 X10^3/uL (2.0-7.7); Basophil# 0.02 X10^3/uL; Basophil% 0.1 % (0-1); Eosinophil# 0.28 X10^3/uL; Eosinophils% 2.1 % (0-5); Hematocrit 36.6 % (37-47); Hemoglobin 11.3 g/dl (12.0-15.0); Lymphocyte # 2.49 X10^3/ul (4.0); Lymphocyte % 18.4 % (19-41); Mean Corp Hgb Conc 30.9 g/gl (32-36); Mean Corpuscular Hgb 29.1 pg (27.0-32.0); Mean Corpuscular Volume 94.3 fL (81-99); Mean Platelet Vol. 9.4 fl (6.2-12.0); Monocyte# 0.95 X10^3/uL; Neutrophil # 9.76 X10^3/uL (2.7-7.7); Neutrophil % 72.2 % (47-70); Platelet Count 500 K/mm3 (150-450); Red Blood Count 3.88 M/mm3 (4.2-5.4); White Blood Count 13.5 K/mm3 (4.4-11.0)
[2018-10-03 07:15] LABS: POSITIVE COUNT NO; POSITIVE DIFFERENTIAL NO; POSITIVE MORPHOLOGY NO
[2018-10-03 07:27] LABS: Anion Gap 6 (5-15); BUN 15 mg/dL (7-18); BUN/Creat Ratio 14.7 RATIO (10-20); Chloride 103 mmol/L (98-107); Creatinine, Serum 1.02 mg/dL (0.55-1.02); EST Glomerular Filtration Rate 58 mL/min (>60); Est Glom Filt Rate - Afr Amer 70 mL/min (>60); Estimated Creatinine Clearance 63.81 ml/min; Glucose 102 mg/dL (74-106); Potassium 3.9 mmol/L (3.5-5.1); Sodium Level 144 mmol/L (136-145)
--- NOTE | 2018-10-03 08:22 | CPS ---
Pt.'s NC flow titrated from 4-6L; patient's SpO2 increased when instructed to take deeper breaths
--- NOTE | 2018-10-03 08:34 | PCM.CONS.PUL ---
Reason for Consult Date of Consultation: 10/03/18 Reason for Consultation: Acute on chronic respiratory failure History of Present Illness: The patient is a 63-year-old female, with a history as outlined below, who presented to the emergency department on September 30 with complaints of shortness of breath. The patient has a reported history of COPD of unknown severity along with obstructive sleep apnea, for which the patient is supposed to be utilizing nocturnal CPAP therapy with a pressure support of 8 cm of water. The patient reports a smoking history that includes upwards of 1 pack/day since the age of 21. She does report that more recently she has cut back to 0.5 packs/day. She has never been evaluated by digital advertising analyst previously. She does not regularly utilize supplemental oxygen at her baseline. She is currently only prescribed a pro-air rescue inhaler, which she reports that she utilizes on average 3 times per day. She does report compliance with the use of nocturnal CPAP therapy. She is currently scheduled to see Dr. Page in the pulmonary medicine clinic in mid October. On presentation to the emergency department, the patient was noted to be afebrile and hemodynamically stable. She was initially noted to be hypoxic, saturating 82% on room air. Laboratory evaluation revealed an elevated white blood cell count of 13,000. Serum bicarbonate was elevated to 33. Lactate was within normal limits. Troponin was negative. Plain film chest x-ray revealed evidence of bibasilar airspace disease. While in the emergency department, the patient received aerosol treatments and antibiotics. She was subsequently admitted to the progressive care unit for ongoing management. To date, the patient's hospital course has included treatment for community-acquired pneumonia with Levaquin. The patient has been on scheduled bronchodilators as well. Her supplemental oxygen requirement has increased to 6 L/min at the present time. Past Medical History Past Medical History (Chronic Problems): Chronic Problems HTN (hypertension) (Chronic) spinal stimulator (Chronic) Spinal stenosis (Chronic) Chronic back pain (Chronic) Hypothyroidism (Chronic) Medical History: Medical History HTN (hypertension) (Chronic) I10 Depression (Acute) F32.9 Anxiety (Acute) F41.9 Nausea and vomiting (Acute) R11.2 GERD (gastroesophageal reflux disease) (Acute) K21.9 Heart disease (Acute) I51.9 spinal stimulator (Chronic) Spinal stenosis (Chronic) M48.00 Chronic back pain (Chronic) M54.9, G89.29 Hypothyroidism (Chronic) E03.9 Allergies cefaclor [From Ceclor] Allergy (Verified 09/30/18 08:22) Itching clarithromycin Allergy (Verified 09/30/18 08:22) Hives doxycycline Allergy (Verified 09/30/18 08:22) Itching Penicillins Allergy (Verified 09/30/18 08:22) Hives Sulfa (Sulfonamide Antibiotics) Allergy (Verified 09/30/18 08:22) Hives Home Medications: Ambulatory Orders Medication Instructions Recorded Albuterol IH (ProAir) [Proair Hfa] 2 puff INHALATION PRN PRN 06/01/13 Aspirin 325 mg PO DAILY@0800 06/01/13 Atorvastatin Calcium [Lipitor] 80 mg PO QHS 06/01/13 Clopidogrel Bisulfate [Plavix] 75 mg PO DAILY 06/01/13 Diclofenac [Voltaren] 75 mg PO BIDCM 06/01/13 Fluoxetine [Prozac] 40 mg PO BID 06/01/13 Metoprolol Tartrate [Lopressor 25 mg PO BID 06/01/13 (beta jackie)] Theophylline Anhydrous [Brandon-24] 400 mg PO DAILY 06/01/13 alendronate 70 mg tablet 70 mg PO QWEEK 07/20/18 omeprazole 20 mg capsule,delayed 40 mg PO DAILY cap 07/20/18 release tiotropium bromide 2.5 2 puff INHALATION DAILY 07/20/18 mcg/actuation mist for inhalation Abaloparatide [Tymlos] 1.56 ml SQ DAILY 09/30/18 Baclofen 10 mg PO DAILY 09/30/18 Bupropion HCl [Bupropion Xl] 300 mg PO DAILY 09/30/18 Calcium Carbonate [Calcium] 600 mg PO DAILY 09/30/18 Docusate Sodium [Stool Softener] 100 mg PO DAILY 09/30/18 Levothyroxine [Synthroid] 88 mcg PO DAILY 09/30/18 Oxycodone HCl/Acetaminophen 1 - 2 tablet PO Q6H PRN PRN 09/30/18 [Percocet 7.5-325 mg Tablet] Trazodone ER [Oleptro Er] 150 mg PO DAILY 09/30/18 Surgical History: Surgical History (Last Updated 08/06/18 @ 08:56 by Leanna Short) Previous back surgery (Acute) Z98.890 S/P hysterectomy (Acute) Z90.710 S/P carpal tunnel release (Acute) Z98.890 S/P knee surgery (Acute) Z98.890 S/P correction of deviated nasal septum (Acute) Z98.890 Status post thyroidectomy (Acute) Z98.890 H/O heart artery stent (Acute) Z95.5 x 5 in 2010 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 History of esophagogastroduodenoscopy (EGD) Onset Date: ~07/2018 Z98.890 Surgical History: surgery Psychiatric History: Anxiety 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 WEIR 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 Lives: Spouse/ Significant Other Smoking Status: Heavy Smoker (>10/day) Tobacco Use: Cigarettes Alcohol: Occasional - *Family History Maternal Family History: Family History (Last Updated 07/20/18 @ 08:40 by Rosi Cloud) Father Asthma Heart disease Grandmother Breast cancer Mother Heart disease Review of Systems Constitutional: Denies: Chills, Fever Eyes: Denies: Blurred vision, Double vision HEENT: Denies: Head Aches, Sinus Congestion, Sinus Drainage Cardiovascular: Denies: Chest Pain, Palpitations Respiratory: Reports: Cough, Shortness of Breath, Sputum production Gastrointestinal: Denies: Abdominal Pain, Nausea, Vomiting Genitourinary: Denies: Dysuria Musculoskeletal: Denies: Joint Pain, Joint Tenderness Skin: Denies: Rash, Wounds Neurological: Denies: Numbness, Tingling, Focal weakness Psychiatric: Reports: Anxiety Hematologic/ Lymphatic: Denies: Easy Bruising, Easy Bleeding Patient Problems: Active and Suspected Problems Community acquired pneumonia (Acute) Objective: The patient's most recent lab work, culture data and imaging studies have all been personally reviewed. Strep and urine Legionella antigens were both negative. Blood cultures have shown no growth to date. Sputum Gram stain dated October 01 revealed 4+ gram-positive cocci. - Physical Exam General: Alert, Cooperative, No apparent distress, - - Sitting in bedside recliner. HEENT: Atraumatic, PERRLA, Normocephalic Oral: No Gingival or Mucosal Lesions/ Ulcerations Neck: Supple, No Nodes, Trachea Midline Lungs: No rhonchi, No wheeze, No rales, Diminished Cardiovascular: Regular rate, Regular Rhythm, Normal S1, Normal S2, No murmurs Abdomen: Bowel Sounds Present, Soft, Non Tender, Obese Extremities: No clubbing, No cyanosis, No edema Skin: No breakdown Musculoskeletal: No Tenderness to Palpation of Joints or Extremities, No Muscle Wasting Lymphatic: No Cervical, Supraclavicular, or Inguinal Adenopathy Neurological: Neuro grossly intact Psych/Mental Status: Flat Affect Vital Signs Temp Pulse Resp BP Pulse Ox 98.1 F 72 18 108/65 90 10/03/18 02:35 10/03/18 07:37 10/03/18 06:35 10/03/18 02:35 10/03/18 06:35 Oxygen Flow Rate (L/min) 6 Oxygen Delivery Method Nasal Cannula Weight: 157 lb 13.616 oz Body Mass Index (BMI) 33.0 Intake and Output for Last 24 Hours 10/01/18 10/02/18 10/03/18 23:59 23:59 23:59 Intake Total 740 / 740 1300 / 1300 120 / 120 Output Total 1650 / 1650 Balance -910 / -910 1300 / 1300 120 / 120 Microbiology Past 72 Hours 10/01/18 22:52 Gram Stain - Final Sputum, Expectorated/Coughed 09/30/18 08:20 Blood Culture - Preliminary Blood Culture (Wb) - Anticubital Left No growth in 48 hours. 09/30/18 09:30 Blood Culture - Preliminary Blood Culture (Wb) #2 - Anticubital Left No growth in 48 hours. 09/30/18 14:43 Streptococcus pneumoniae Antigen (M - Final Urine, Clean Catch 09/30/18 14:43 Legionella Antigen - Final Urine, Clean Catch Laboratory Tests Past 24 Hrs 10/03/18 10/03/18 06:20 06:20 WBC 13.5 H RBC 3.88 L Hgb 11.3 L Hct 36.6 L MCV 94.3 MCH 29.1 MCHC 30.9 L RDW 17.0 H RDW Differential 58.0 H Plt Count 500 H MPV 9.4 Immature Gran % (Auto) 0.200 Neut % (Auto) 72.2 H Lymph % (Auto) 18.4 L [place] % (Auto) 7.0 Eos % (Auto) 2.1 Baso % (Auto) 0.1 Absolute Neuts (auto) 9.8 H Absolute Lymphs (auto) 2.49 Total Counted Not Reportable Sodium 144 Potassium 3.9 Chloride 103 Carbon Dioxide 35.0 H Anion Gap 6 BUN 15 Creatinine 1.02 Estim Creat Clear Calc 63.81 Est GFR (MDRD) Af Amer 70 Est GFR (MDRD) Non-Af 58 L BUN/Creatinine Ratio 14.7 Glucose 102 Calcium 9.0 Clinical Impression(s) from Imaging Studies Chest X-Ray 09/30/18 08:55 IMPRESSION: Bibasilar infiltrates worse on the right side with blunting of the costophrenic angles worse on the right side. Nodular densities in the right hemithorax as described. These most likely represent healing rib fractures. Electronically Signed: Luis Antonio Burnsconstanza, at 9:33 EDT , Service support , Assessment/Plan All Active Problems Biliary colic (Acute) Community acquired pneumonia (Acute) Previous back surgery (Acute) S/P hysterectomy (Acute) S/P carpal tunnel release (Acute) S/P knee surgery (Acute) S/P correction of deviated nasal septum (Acute) Status post thyroidectomy (Acute) H/O heart artery stent (Acute) Status post amputation of right foot (Acute) Depression (Acute) Anxiety (Acute) Nausea and vomiting (Acute) GERD (gastroesophageal reflux disease) (Acute) Heart disease (Acute) RECOMMENDATIONS: 1. Obtain echocardiogram and check BNP. 2. Check MRSA screen. 3. Given 4+ gram-positive cocci noted on sputum Gram stain coupled with increasing oxygen requirement, recommend empirically starting vancomycin. 4. Start nocturnal CPAP therapy with a pressure support of 8 cm of water. 5. Wean supplemental oxygen to maintain saturations at or above 90%. 6. Encourage incentive spirometer use and mobilize patient as tolerated. 7. Continue bronchodilators as ordered. 8. Start IV steroids 40 mg every 6 hours. 9. Walking oximetry prior to DC along with outpatient pulmonary follow-up as warranted. IMPRESSIONS: 1. Acute hypoxemic respiratory failure secondary to community-acquired pneumonia The patient denied to me that she utilizes supplemental oxygen at her baseline. She is currently requiring upwards of 6 L/min to maintain appropriate oxygen saturations. She has been on treatment now with Levaquin since her admission. Sputum Gram stain is currently demonstrating 4+ gram-positive cocci. Therefore, I would recommend empiric initiation of vancomycin while awaiting finalized culture results. We will also plan to check an MRSA screen. Continue scheduled bronchodilators as ordered. Wean supplemental oxygen to maintain saturations at or above 90%. Encourage aggressive incentive spirometer use and mobilize patient as tolerated. 2. Personal history of tobacco dependency Smoking cessation counseling was provided. The patient undoubtedly will need to be followed in the pulmonary medicine clinic so that baseline PFTs can be obtained to confirm or refute a diagnosis of COPD. 3. History of obstructive sleep apnea The patient is supposed to be utilizing nocturnal CPAP therapy with a pressure support of 8 cm of water. This does not appear to have been ordered since her admission. I therefore went ahead and placed orders for nocturnal CPAP therapy. Would recommend that she utilize CPAP with naps and nightly. 4. Hypertension/hypothyroidism/GERD/depression/anxiety/chronic pain syndrome Complicates care, management, recovery and prognosis. Continue home medications as indicated. This note was generated with [employer] dictation software. It may contain incorrect words, spelling, and punctuation that were not noted in checking the note before signing. Code Visit Inpatient E&M: 02272 Init Hosp L3
--- NOTE | 2018-10-03 08:39 | ECHOCS_ITS ---
Reason For Study: Dyspnea/SOB Procedure This was a 2D Doppler, Color Flow transthoracic echocardiogram. The study was technically difficult. Contrast injection was performed. Patient scanned supine and on vent. Exam performed portable in ICU/CCU. Left Ventricle Normal LV size. Moderate concentric left ventricular hypertrophy. Left ventricular systolic function is normal. The estimated ejection fraction is 65 %. No regional wall motion abnormalities noted. Right Ventricle Normal RV size. Normal systolic function. Atria Normal left atrium. Mitral Valve Normal mitral valve. Tricuspid Valve Normal tricuspid valve. Aortic Valve Normal aortic valve. Pulmonic Valve Normal pulmonic valve. Great Vessels Normal aortic root. The pulmonary artery is normal size. Normal inferior vena cava. Pericardium/Pleural No pericardial effusion. Medication Diluted definity 4ml given slow IV push to enhance endocardial definition. MMode/2D Measurements & Calculations LVIDd: 4.2 cm IVSd: 1.5 cm LAV(MOD-bp): 35.6 ml LVIDs: 2.0 cm LVPWd: 1.4 cm FS: 52.3 % LAV(MOD-bp) Indexed: 21.6 ml/m2 LAV(MOD-sp2): 50.2 ml LAV(MOD-sp4): 23.7 ml LA A4 area: 12.2 cm2 Time Measurements MV dec time: 0.20 sec Doppler Measurements & Calculations MV E max eloy: 108.8 cm/sec Med Peak E' Eloy: 6.5 cm/sec MV V2 max: 108.8 cm/sec MV A max eloy: 102.8 cm/sec E/E' med: 16.7 MV max P.7 mmHg MV E/A: 1.1 MV V2 mean: 67.1 cm/sec MV mean P.1 mmHg MV V2 VTI: 35.2 cm MV P1/2t max eloy: 109.8 cm/sec Ao V2 max: 171.4 cm/sec LV V1 max: 114.8 cm/sec MV P1/2t: 112.9 msec Ao max P.8 mmHg LV V1 max P.3 mmHg MV dec slope: 284.9 cm/sec2 MVA(P1/2t): 1.9 cm2 Interpretation Summary Normal LV size. Moderate concentric left ventricular hypertrophy. Left ventricular systolic function is normal. The estimated ejection fraction is 65 %. Contrast injection was performed. Ordering Physician: Caesar Raza D.O. Performed By: Chad Noonan RCS
--- NOTE | 2018-10-03 08:40 | CON.PCM_ITS ---
Reason for Consult Date of Consultation: 10/03/18 Reason for Consultation: Acute on chronic respiratory failure History of Present Illness: The patient is a 63-year-old female, with a history as outlined below, who presented to the emergency department on September 30 with complaints of shortness of breath. The patient has a reported history of COPD of unknown severity along with obstructive sleep apnea, for which the patient is supposed to be utilizing nocturnal CPAP therapy with a pressure support of 8 cm of water. The patient reports a smoking history that includes upwards of 1 pack/day since the age of 21. She does report that more recently she has cut back to 0.5 packs/day. She has never been evaluated by assembler body previously. She does not regularly utilize supplemental oxygen at her baseline. She is currently only prescribed a pro-air rescue inhaler, which she reports that she utilizes on average 3 times per day. She does report compliance with the use of nocturnal CPAP therapy. She is currently scheduled to see Dr. Page in the pulmonary medicine clinic in mid October. On presentation to the emergency department, the patient was noted to be afebrile and hemodynamically stable. She was initially noted to be hypoxic, saturating 82% on room air. Laboratory evaluation revealed an elevated white blood cell count of 13,000. Serum bicarbonate was elevated to 33. Lactate was within normal limits. Troponin was negative. Plain film chest x-ray revealed evidence of bibasilar airspace disease. While in the emergency department, the patient received aerosol treatments and antibiotics. She was subsequently admitted to the progressive care unit for ongoing management. To date, the patient's hospital course has included treatment for community- acquired pneumonia with Levaquin. The patient has been on scheduled bronchodilators as well. Her supplemental oxygen requirement has increased to 6 L/min at the present time. Past Medical History Past Medical History (Chronic Problems): Chronic Problems HTN (hypertension) (Chronic) spinal stimulator (Chronic) Spinal stenosis (Chronic) Chronic back pain (Chronic) Hypothyroidism (Chronic) Medical History: Medical History HTN (hypertension) (Chronic) I10 Depression (Acute) F32.9 Anxiety (Acute) F41.9 Nausea and vomiting (Acute) R11.2 GERD (gastroesophageal reflux disease) (Acute) K21.9 Heart disease (Acute) I51.9 spinal stimulator (Chronic) Spinal stenosis (Chronic) M48.00 Chronic back pain (Chronic) M54.9, G89.29 Hypothyroidism (Chronic) E03.9 Allergies cefaclor [From Ceclor] Allergy (Verified 09/30/18 08:22) Itching clarithromycin Allergy (Verified 09/30/18 08:22) Hives doxycycline Allergy (Verified 09/30/18 08:22) Itching Penicillins Allergy (Verified 09/30/18 08:22) Hives Sulfa (Sulfonamide Antibiotics) Allergy (Verified 09/30/18 08:22) Hives Home Medications: Ambulatory Orders Medication Instructions Recorded Albuterol IH (ProAir) [Proair Hfa] 2 puff INHALATION PRN PRN 06/01/13 Aspirin 325 mg PO DAILY@0800 06/01/13 Atorvastatin Calcium [Lipitor] 80 mg PO QHS 06/01/13 Clopidogrel Bisulfate [Plavix] 75 mg PO DAILY 06/01/13 Diclofenac [Voltaren] 75 mg PO BIDCM 06/01/13 Fluoxetine [Prozac] 40 mg PO BID 06/01/13 Metoprolol Tartrate [Lopressor 25 mg PO BID 06/01/13 (beta jackie)] Theophylline Anhydrous [Brandon-24] 400 mg PO DAILY 06/01/13 alendronate 70 mg tablet 70 mg PO QWEEK 07/20/18 omeprazole 20 mg capsule,delayed 40 mg PO DAILY cap 07/20/18 release tiotropium bromide 2.5 2 puff INHALATION DAILY 07/20/18 mcg/actuation mist for inhalation Abaloparatide [Tymlos] 1.56 ml SQ DAILY 09/30/18 Baclofen 10 mg PO DAILY 09/30/18 Bupropion HCl [Bupropion Xl] 300 mg PO DAILY 09/30/18 Calcium Carbonate [Calcium] 600 mg PO DAILY 09/30/18 Docusate Sodium [Stool Softener] 100 mg PO DAILY 09/30/18 Levothyroxine [Synthroid] 88 mcg PO DAILY 09/30/18 Oxycodone HCl/Acetaminophen 1 - 2 tablet PO Q6H PRN PRN 09/30/18 [Percocet 7.5-325 mg Tablet] Trazodone ER [Oleptro Er] 150 mg PO DAILY 09/30/18 Surgical History: Surgical History (Last Updated 08/06/18 @ 08:56 by Leanna Short) Previous back surgery (Acute) Z98.890 S/P hysterectomy (Acute) Z90.710 S/P carpal tunnel release (Acute) Z98.890 S/P knee surgery (Acute) Z98.890 S/P correction of deviated nasal septum (Acute) Z98.890 Status post thyroidectomy (Acute) Z98.890 H/O heart artery stent (Acute) Z95.5 x 5 in 2010 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 History of esophagogastroduodenoscopy (EGD) Onset Date: ~07/2018 Z98.890 Surgical History: surgery Psychiatric History: Anxiety [employer]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 Lives: Spouse/ Significant Other Smoking Status: Heavy Smoker (>10/day) Tobacco Use: Cigarettes Alcohol: Occasional - *Family History Maternal Family History: Family History (Last Updated 07/20/18 @ 08:40 by Rosi Cloud) Father Asthma Heart disease Grandmother Breast cancer Mother Heart disease Review of Systems Constitutional: Denies: Chills, Fever Eyes: Denies: Blurred vision, Double vision HEENT: Denies: Head Aches, Sinus Congestion, Sinus Drainage Cardiovascular: Denies: Chest Pain, Palpitations Respiratory: Reports: Cough, Shortness of Breath, Sputum production Gastrointestinal: Denies: Abdominal Pain, Nausea, Vomiting Genitourinary: Denies: Dysuria Musculoskeletal: Denies: Joint Pain, Joint Tenderness Skin: Denies: Rash, Wounds Neurological: Denies: Numbness, Tingling, Focal weakness Psychiatric: Reports: Anxiety Hematologic/ Lymphatic: Denies: Easy Bruising, Easy Bleeding Patient Problems: Active and Suspected Problems Community acquired pneumonia (Acute) Objective: The patient's most recent lab work, culture data and imaging studies have all been personally reviewed. Strep and urine Legionella antigens were both negative. Blood cultures have shown no growth to date. Sputum Gram stain dated October 01 revealed 4+ gram-positive cocci. - Physical Exam General: Alert, Cooperative, No apparent distress, - - Sitting in bedside recliner. HEENT: Atraumatic, PERRLA, Normocephalic Oral: No Gingival or Mucosal Lesions/ Ulcerations Neck: Supple, No Nodes, Trachea Midline Lungs: No rhonchi, No wheeze, No rales, Diminished Cardiovascular: Regular rate, Regular Rhythm, Normal S1, Normal S2, No murmurs Abdomen: Bowel Sounds Present, Soft, Non Tender, Obese Extremities: No clubbing, No cyanosis, No edema Skin: No breakdown Musculoskeletal: No Tenderness to Palpation of Joints or Extremities, No Muscle Wasting Lymphatic: No Cervical, Supraclavicular, or Inguinal Adenopathy Neurological: Neuro grossly intact Psych/Mental Status: Flat Affect Vital Signs Temp Pulse Resp BP Pulse Ox 98.1 F 72 18 108/65 90 10/03/18 02:35 10/03/18 07:37 10/03/18 06:35 10/03/18 02:35 10/03/18 06:35 Oxygen Flow Rate (L/min) 6 Oxygen Delivery Method Nasal Cannula Weight: 157 lb 13.616 oz Body Mass Index (BMI) 33.0 Intake and Output for Last 24 Hours 10/01/18 10/02/18 10/03/18 23:59 23:59 23:59 Intake Total 740 / 740 1300 / 1300 120 / 120 Output Total 1650 / 1650 Balance -910 / -910 1300 / 1300 120 / 120 Microbiology Past 72 Hours 10/01/18 22:52 Gram Stain - Final Sputum, Expectorated/Coughed 09/30/18 08:20 Blood Culture - Preliminary Blood Culture (Wb) - Anticubital Left No growth in 48 hours. 09/30/18 09:30 Blood Culture - Preliminary Blood Culture (Wb) #2 - Anticubital Left No growth in 48 hours. 09/30/18 14:43 Streptococcus pneumoniae Antigen (M - Final Urine, Clean Catch 09/30/18 14:43 Legionella Antigen - Final Urine, Clean Catch Laboratory Tests Past 24 Hrs 10/03/18 10/03/18 06:20 06:20 WBC 13.5 H RBC 3.88 L Hgb 11.3 L Hct 36.6 L MCV 94.3 MCH 29.1 MCHC 30.9 L RDW 17.0 H RDW Differential 58.0 H Plt Count 500 H MPV 9.4 Immature Gran % (Auto) 0.200 Neut % (Auto) 72.2 H Lymph % (Auto) 18.4 L [place] % (Auto) 7.0 Eos % (Auto) 2.1 Baso % (Auto) 0.1 Absolute Neuts (auto) 9.8 H Absolute Lymphs (auto) 2.49 Total Counted Not Reportable Sodium 144 Potassium 3.9 Chloride 103 Carbon Dioxide 35.0 H Anion Gap 6 BUN 15 Creatinine 1.02 Estim Creat Clear Calc 63.81 Est GFR (MDRD) Af Amer 70 Est GFR (MDRD) Non-Af 58 L BUN/Creatinine Ratio 14.7 Glucose 102 Calcium 9.0 Clinical Impression(s) from Imaging Studies Chest X-Ray 09/30/18 08:55 IMPRESSION: Bibasilar infiltrates worse on the right side with blunting of the costophrenic angles worse on the right side. Nodular densities in the right hemithorax as described. These most likely represent healing rib fractures. Electronically Signed: Luis Antonio Burnsleblair, at 9:33 EDT , Service support , Assessment/Plan All Active Problems Biliary colic (Acute) Community acquired pneumonia (Acute) Previous back surgery (Acute) S/P hysterectomy (Acute) S/P carpal tunnel release (Acute) S/P knee surgery (Acute) S/P correction of deviated nasal septum (Acute) Status post thyroidectomy (Acute) H/O heart artery stent (Acute) Status post amputation of right foot (Acute) Depression (Acute) Anxiety (Acute) Nausea and vomiting (Acute) GERD (gastroesophageal reflux disease) (Acute) Heart disease (Acute) RECOMMENDATIONS: 1. Obtain echocardiogram and check BNP. 2. Check MRSA screen. 3. Given 4+ gram-positive cocci noted on sputum Gram stain coupled with increasing oxygen requirement, recommend empirically starting vancomycin. 4. Start nocturnal CPAP therapy with a pressure support of 8 cm of water. 5. Wean supplemental oxygen to maintain saturations at or above 90%. 6. Encourage incentive spirometer use and mobilize patient as tolerated. 7. Continue bronchodilators as ordered. 8. Start IV steroids 40 mg every 6 hours. 9. Walking oximetry prior to DC along with outpatient pulmonary follow-up as warranted. IMPRESSIONS: 1. Acute hypoxemic respiratory failure secondary to community-acquired pneumonia The patient denied to me that she utilizes supplemental oxygen at her baseline. She is currently requiring upwards of 6 L/min to maintain appropriate oxygen s aturations. She has been on treatment now with Levaquin since her admission. Sputum Gram stain is currently demonstrating 4+ gram-positive cocci. Therefore, I would recommend empiric initiation of vancomycin while awaiting finalized culture results. We will also plan to check an MRSA screen. Continue scheduled bronchodilators as ordered. Wean supplemental oxygen to maintain saturations at or above 90%. Encourage aggressive incentive spirometer use and mobilize patient as tolerated. 2. Personal history of tobacco dependency Smoking cessation counseling was provided. The patient undoubtedly will need to be followed in the pulmonary medicine clinic so that baseline PFTs can be obtained to confirm or refute a diagnosis of COPD. 3. History of obstructive sleep apnea The patient is supposed to be utilizing nocturnal CPAP therapy with a pressure support of 8 cm of water. This does not appear to have been ordered since her admission. I therefore went ahead and placed orders for nocturnal CPAP therapy. Would recommend that she utilize CPAP with naps and nightly. 4. Hypertension/hypothyroidism/GERD/depression/anxiety/chronic pain syndrome Complicates care, management, recovery and prognosis. Continue home medications as indicated. This note was generated with [employer] dictation software. It may contain incorrect words, spelling, and punctuation that were not noted in checking the note before signing. Code Visit Inpatient E&M: 65073 Init Hosp L3
[2018-10-03] MEDS: levoFLOXacin IV 750 MG/150 ML BAG 100 MG IV (09:17)
[2018-10-03] MEDS: 0.9% NaCl Peripheral Flush Adult/Peds IV (09:17)
[2018-10-03] MEDS: Baclofen 10 MG Tablet PO (09:23)
[2018-10-03] MEDS: Pantoprazole Sodium 40 MG Tablet PO (09:23)
[2018-10-03] MEDS: FLUoxetine 20 MG Capsule 40 MG PO ×2 (09:23→23:05)
[2018-10-03] MEDS: Clopidogrel Bisulfate 75 MG Tablet PO (09:23)
[2018-10-03] MEDS: Enoxaparin 40 MG/0.4 ML Syringe SC (09:23)
[2018-10-03] MEDS: Diclofenac 75 MG Tablet PO ×2 (09:23→18:08)
[2018-10-03] MEDS: traZODone 50 MG Tablet 150 MG PO (09:23)
[2018-10-03] MEDS: buPROPion (XL) 300 MG TABLET.XL PO (09:23)
[2018-10-03] MEDS: Aspirin 325 MG Tablet PO (09:24)
[2018-10-03] MEDS: Docusate Sodium 100 MG Capsule PO (09:24)
[2018-10-03 09:40] LABS: BNP,B-Type NATRIURETIC PEPTIDE 24.7 pg/mL (0-100)
--- NOTE | 2018-10-03 10:17 | PCM.PN.HOSP ---
Patient Problems: Active and Suspected Problems Community acquired pneumonia (Acute) Subjective: Patient seen and examined. She has no complaints this morning. She still requiring increasing amounts of oxygen and is up to 6 L. She denies any chest pain, wheezing, palpitations or dizziness, lightheadedness, diarrhea vomiting. She feels better overall. Review of systems otherwise negative. Pulmonology consulted on account of increasing oxygen requirements. Vitals/I&O's: Vital Signs Temp Pulse Resp BP Pulse Ox 97.8 F 70 18 87/42 L 94 10/03/18 09:14 10/03/18 09:14 10/03/18 09:14 10/03/18 09:14 10/03/18 09:14 Oxygen Flow Rate (L/min) 5 Oxygen Delivery Method Nasal Cannula Weight: 157 lb 13.616 oz Body Mass Index (BMI) 33.0 Intake and Output for Last 24 Hours 10/01/18 10/02/18 10/03/18 23:59 23:59 23:59 Intake Total 740 / 740 1300 / 1300 120 / 120 Output Total 1650 / 1650 Balance -910 / -910 1300 / 1300 120 / 120 General: Alert, Oriented x3, Cooperative, No apparent distress HEENT: Atraumatic, PERRLA, EOMI, Normocephalic Oral: Dry Mucosa Neck: Supple, No JVD, Negative Carotid Bruits Lungs: - - diminished breath sounds bibasally, no wheezes or crackles. on 6L of oxygen Cardiovascular: Regular rate, Regular Rhythm, Normal S1, Normal S2, No murmurs Abdomen: Bowel Sounds Present, Soft, Non Tender, Non-Distended Extremities: No clubbing, No cyanosis, No edema, Capillary Refill Less than 3 Seconds, right LE BKA Skin: No rashes, No breakdown Musculoskeletal: No Tenderness to Palpation of Joints or Extremities Lymphatic: No Cervical, Supraclavicular, or Inguinal Adenopathy Neurological: Cranial nerves II-XII grossly intact, Neuro grossly intact, Motor Exam 5/5 strength throughout Psych/Mental Status: Normal Affect, Appropriate, Alert and oriented to time, place, person, mood and affect Microbiology Past 72 Hours 10/01/18 22:52 Sputum, Expectorated/Coughed Gram Stain - Final 10/01/18 22:52 Sputum, Expectorated/Coughed Respiratory Culture - Preliminary Appears to be normal respiratory gera. Further studies to follow. 09/30/18 08:20 Blood Culture (Wb) - Anticubital Left Blood Culture - Preliminary No growth in 48 hours. 09/30/18 09:30 Blood Culture (Wb) #2 - Anticubital Left Blood Culture - Preliminary No growth in 48 hours. 09/30/18 14:43 Urine, Clean Catch Streptococcus pneumoniae Antigen (M - Final 09/30/18 14:43 Urine, Clean Catch Legionella Antigen - Final Laboratory Results 10/03/18 06:20: WBC 13.5 H, RBC 3.88 L, Hgb 11.3 L, Hct 36.6 L, MCV 94.3, MCH 29.1, MCHC 30.9 L, RDW 17.0 H, RDW Differential 58.0 H, Plt Count 500 H, MPV 9.4, Immature Gran % (Auto) 0.200, Neut % (Auto) 72.2 H, Lymph % (Auto) 18.4 L, [place] % (Auto) 7.0, Eos % (Auto) 2.1, Baso % (Auto) 0.1, Absolute Neuts (auto) 9.8 H, Absolute Lymphs (auto) 2.49, Total Counted Not Reportable 10/03/18 06:20: Sodium 144, Potassium 3.9, Chloride 103, Carbon Dioxide 35.0 H, Anion Gap 6, BUN 15, Creatinine 1.02, Estim Creat Clear Calc 63.81, Est GFR (MDRD) Af Amer 70, Est GFR (MDRD) Non-Af 58 L, BUN/Creatinine Ratio 14.7, Glucose 102, Calcium 9.0 10/03/18 06:20: B-Natriuretic Peptide 24.7 10/03/18 09:40: MRSA (PCR) Pending Current Medications Albuterol/Ipratropium (Duoneb) 3 ml INHALATION Q4HWA.RT [facility] Last Admin: 10/03/18 06:35 Dose: 3 ml Alendronate Sodium (Fosamax) 70 mg PO QWEEK [facility] Aspirin (Aspirin) 325 mg PO DAILY@0800 [facility] Last Admin: 10/03/18 09:24 Dose: 325 mg Atorvastatin Calcium (Lipitor) 80 mg PO QHS [facility] Last Admin: 10/02/18 22:00 Dose: 80 mg Baclofen (Lioresal) 10 mg PO DAILY [facility] Last Admin: 10/03/18 09:23 Dose: 10 mg Bupropion HCl (Wellbutrin Xl) 300 mg PO DAILY [facility] Last Admin: 10/03/18 09:23 Dose: 300 mg Calcium Carbonate (Os-Bean 500) 500 mg PO DAILY@1200 [facility] Last Admin: 10/02/18 12:36 Dose: 500 mg Clopidogrel Bisulfate (Plavix) 75 mg PO DAILY [facility] Last Admin: 10/03/18 09:23 Dose: 75 mg Dextrose (D50w Syringe) 0 gm IV X1 PRN; Protocol PRN Reason: Hypoglycemia Diclofenac Sodium (Voltaren) 75 mg PO BIDCM [facility] Last Admin: 10/03/18 09:23 Dose: 75 mg Docusate Sodium (Colace) 100 mg PO DAILY [facility] Last Admin: 10/03/18 09:24 Dose: 100 mg Enoxaparin Sodium (Lovenox) 40 mg SC DAILY@1000 [facility] Last Admin: 10/03/18 09:23 Dose: 40 mg Fluoxetine HCl (Prozac) 40 mg PO BID [facility] Last Admin: 10/03/18 09:23 Dose: 40 mg Glucagon () 1 mg IM .X1 PRN PRN Reason: Hypoglycemia Levofloxacin (Levaquin Iv) 750 mg in 150 mls @ 100 mls/hr IV Q24 [facility] Last Admin: 10/03/18 09:17 Dose: 100 mls/hr Vancomycin IV Pharmacy to Dose (1 ea/ Sodium Chloride) 500 mls @ 250 mls/hr IV X1 PRN; Protocol PRN Reason: Rx to Dose Vancomycin HCl 1,750 mg/ (Sodium Chloride) 535 mls @ 250 mls/hr IV X1 ONE Stop: 10/03/18 12:08 Levothyroxine Sodium (Synthroid) 88 mcg PO DAILY@0600 [facility] Last Admin: 10/03/18 06:09 Dose: 88 mcg Metoprolol Tartrate (Lopressor (Beta Karine)) 25 mg PO BID [facility] Last Admin: 10/02/18 22:01 Dose: 25 mg Non-Formulary Medication (Abaloparatide [Tymlos]) 0.04 ml SQ DAILY [facility] Last Admin: 10/03/18 09:24 Dose: 0.04 ml Non-Formulary Medication (Theophylline Anhydrous [Brandon-24]) 400 mg PO DAILY [facility] Last Admin: 10/03/18 09:24 Dose: 400 mg Ondansetron HCl (Zofran) 4 mg IV Q8H PRN PRN PRN Reason: NAUSEA/VOMITING Last Admin: 10/03/18 04:21 Dose: 4 mg Oxycodone HCl (Oxyir) 5 mg PO Q4H PRN PRN PRN Reason: PAIN Last Admin: 10/03/18 02:51 Dose: 5 mg Pantoprazole Sodium (Protonix) 40 mg PO DAILY [facility] Last Admin: 10/03/18 09:23 Dose: 40 mg Sodium Chloride () 5 - 15 ml IV UD PRN PRN Reason: SALINE FLUSH Last Admin: 10/03/18 09:17 Dose: 10 ml Sodium Chloride ([place] Nasal [place]) 2 spray NASAL TID PRN PRN PRN Reason: NASAL DRYNESS Last Admin: 10/03/18 01:16 Dose: 2 spray Trazodone HCl (Desyrel) 150 mg PO DAILY [facility] Last Admin: 10/03/18 09:23 Dose: 150 mg Medical Necessity - Tobacco Use Smoking Status: Heavy Smoker (>10/day) Tobacco Use: Cigarettes Assessment/Plan All Active Problems Biliary colic (Acute) Community acquired pneumonia (Acute) Previous back surgery (Acute) S/P hysterectomy (Acute) S/P carpal tunnel release (Acute) S/P knee surgery (Acute) S/P correction of deviated nasal septum (Acute) Status post thyroidectomy (Acute) H/O heart artery stent (Acute) Status post amputation of right foot (Acute) Depression (Acute) Anxiety (Acute) Nausea and vomiting (Acute) GERD (gastroesophageal reflux disease) (Acute) Heart disease (Acute) 63-year-old female admitted with a complaint of shortness of breath and productive cough 1. Community acquired pneumonia CXR showed bilateral lower lobe infiltrates wbc has trended down to 13.5 today. on IV levaquin. urine for strep and legionella antigen were negative. sputm culture was negative and blood cultures were also negative. continue IV levaquin. requiring increasing amounts of oxygen and is now on 6L of oxygen continue breathing treatments 2. acute on Chronic hypoxic respiratory failure now on 6L of oxygen. baseline is 3L of oxygen pulmonology consulted BNP was only 24, making heart failure very unlikely 2D echo ordered. continue breathing treatments and titrate oxygen to maintain sats >90% 3. Hypertension: Fairly controlled for age. On metoprolol 4. Hypothyroidism: On Synthroid 5. GERD: On PPI 6. Depression: On fluoxetine and trazodone 7. Chronic back pain and osteoporosis: on baclofen, abaloparatide and calcium carbonate. DVT prophylaxis: Lovenox Code Visit Inpatient E&M: 45201 Subs Hosp L3
--- NOTE | 2018-10-03 10:22 | PN_ITS ---
Patient Problems: Active and Suspected Problems Community acquired pneumonia (Acute) Subjective: Patient seen and examined. She has no complaints this morning. She still requiring increasing amounts of oxygen and is up to 6 L. She denies any chest pain, wheezing, palpitations or dizziness, lightheadedness, diarrhea vomiting. She feels better overall. Review of systems otherwise negative. Pulmonology consulted on account of increasing oxygen requirements. Vitals/I&O's: Vital Signs Temp Pulse Resp BP Pulse Ox 97.8 F 70 18 87/42 L 94 10/03/18 09:14 10/03/18 09:14 10/03/18 09:14 10/03/18 09:14 10/03/18 09:14 Oxygen Flow Rate (L/min) 5 Oxygen Delivery Method Nasal Cannula Weight: 157 lb 13.616 oz Body Mass Index (BMI) 33.0 Intake and Output for Last 24 Hours 10/01/18 10/02/18 10/03/18 23:59 23:59 23:59 Intake Total 740 / 740 1300 / 1300 120 / 120 Output Total 1650 / 1650 Balance -910 / -910 1300 / 1300 120 / 120 General: Alert, Oriented x3, Cooperative, No apparent distress HEENT: Atraumatic, PERRLA, EOMI, Normocephalic Oral: Dry Mucosa Neck: Supple, No JVD, Negative Carotid Bruits Lungs: - - diminished breath sounds bibasally, no wheezes or crackles. on 6L of oxygen Cardiovascular: Regular rate, Regular Rhythm, Normal S1, Normal S2, No murmurs Abdomen: Bowel Sounds Present, Soft, Non Tender, Non-Distended Extremities: No clubbing, No cyanosis, No edema, Capillary Refill Less than 3 Seconds, right LE BKA Skin: No rashes, No breakdown Musculoskeletal: No Tenderness to Palpation of Joints or Extremities Lymphatic: No Cervical, Supraclavicular, or Inguinal Adenopathy Neurological: Cranial nerves II-XII grossly intact, Neuro grossly intact, Motor Exam 5/5 strength throughout Psych/Mental Status: Normal Affect, Appropriate, Alert and oriented to time, place, person, mood and affect Microbiology Past 72 Hours 10/01/18 22:52 Sputum, Expectorated/Coughed Gram Stain - Final 10/01/18 22:52 Sputum, Expectorated/Coughed Respiratory Culture - Preliminary Appears to be normal respiratory gera. Further studies to follow. 09/30/18 08:20 Blood Culture (Wb) - Anticubital Left Blood Culture - Preliminary No growth in 48 hours. 09/30/18 09:30 Blood Culture (Wb) #2 - Anticubital Left Blood Culture - Preliminary No growth in 48 hours. 09/30/18 14:43 Urine, Clean Catch Streptococcus pneumoniae Antigen (M - Final 09/30/18 14:43 Urine, Clean Catch Legionella Antigen - Final Laboratory Results 10/03/18 06:20: WBC 13.5 H, RBC 3.88 L, Hgb 11.3 L, Hct 36.6 L, MCV 94.3, MCH 29.1, MCHC 30.9 L, RDW 17.0 H, RDW Differential 58.0 H, Plt Count 500 H, MPV 9.4, Immature Gran % (Auto) 0.200, Neut % (Auto) 72.2 H, Lymph % (Auto) 18.4 L, Ponce % (Auto) 7.0, Eos % (Auto) 2.1, Baso % (Auto) 0.1, Absolute Neuts (auto) 9.8 H, Absolute Lymphs (auto) 2.49, Total Counted Not Reportable 10/03/18 06:20: Sodium 144, Potassium 3.9, Chloride 103, Carbon Dioxide 35.0 H, Anion Gap 6, BUN 15, Creatinine 1.02, Estim Creat Clear Calc 63.81, Est GFR (MDRD) Af Amer 70, Est GFR (MDRD) Non-Af 58 L, BUN/Creatinine Ratio 14.7, Glucose 102, Calcium 9.0 10/03/18 06:20: B-Natriuretic Peptide 24.7 10/03/18 09:40: MRSA (PCR) Pending Current Medications Albuterol/Ipratropium (Duoneb) 3 ml INHALATION Q4HWA.RT [facility] Last Admin: 10/03/18 06:35 Dose: 3 ml Alendronate Sodium (Fosamax) 70 mg PO QWEEK [facility] Aspirin (Aspirin) 325 mg PO DAILY@0800 [facility] Last Admin: 10/03/18 09:24 Dose: 325 mg Atorvastatin Calcium (Lipitor) 80 mg PO QHS [facility] Last Admin: 10/02/18 22:00 Dose: 80 mg Baclofen (Lioresal) 10 mg PO DAILY [facility] Last Admin: 10/03/18 09:23 Dose: 10 mg Bupropion HCl (Wellbutrin Xl) 300 mg PO DAILY [facility] Last Admin: 10/03/18 09:23 Dose: 300 mg Calcium Carbonate (Os-Bean 500) 500 mg PO DAILY@1200 [facility] Last Admin: 10/02/18 12:36 Dose: 500 mg Clopidogrel Bisulfate (Plavix) 75 mg PO DAILY [facility] Last Admin: 10/03/18 09:23 Dose: 75 mg Dextrose (D50w Syringe) 0 gm IV X1 PRN; Protocol PRN Reason: Hypoglycemia Diclofenac Sodium (Voltaren) 75 mg PO BIDCM [facility] Last Admin: 10/03/18 09:23 Dose: 75 mg Docusate Sodium (Colace) 100 mg PO DAILY [facility] Last Admin: 10/03/18 09:24 Dose: 100 mg Enoxaparin Sodium (Lovenox) 40 mg SC DAILY@1000 [facility] Last Admin: 10/03/18 09:23 Dose: 40 mg Fluoxetine HCl (Prozac) 40 mg PO BID [facility] Last Admin: 10/03/18 09:23 Dose: 40 mg Glucagon () 1 mg IM .X1 PRN PRN Reason: Hypoglycemia Levofloxacin (Levaquin Iv) 750 mg in 150 mls @ 100 mls/hr IV Q24 [facility] Last Admin: 10/03/18 09:17 Dose: 100 mls/hr Vancomycin IV Pharmacy to Dose (1 ea/ Sodium Chloride) 500 mls @ 250 mls/hr IV X1 PRN; Protocol PRN Reason: Rx to Dose Vancomycin HCl 1,750 mg/ (Sodium Chloride) 535 mls @ 250 mls/hr IV X1 ONE Stop: 10/03/18 12:08 Levothyroxine Sodium (Synthroid) 88 mcg PO DAILY@0600 [facility] Last Admin: 10/03/18 06:09 Dose: 88 mcg Metoprolol Tartrate (Lopressor (Beta Karine)) 25 mg PO BID [facility] Last Admin: 10/02/18 22:01 Dose: 25 mg Non-Formulary Medication (Abaloparatide [Tymlos]) 0.04 ml SQ DAILY [facility] Last Admin: 10/03/18 09:24 Dose: 0.04 ml Non-Formulary Medication (Theophylline Anhydrous [Brandon-24]) 400 mg PO DAILY [facility] Last Admin: 10/03/18 09:24 Dose: 400 mg Ondansetron HCl (Zofran) 4 mg IV Q8H PRN PRN PRN Reason: NAUSEA/VOMITING Last Admin: 10/03/18 04:21 Dose: 4 mg Oxycodone HCl (Oxyir) 5 mg PO Q4H PRN PRN PRN Reason: PAIN Last Admin: 10/03/18 02:51 Dose: 5 mg Pantoprazole Sodium (Protonix) 40 mg PO DAILY [facility] Last Admin: 10/03/18 09:23 Dose: 40 mg Sodium Chloride () 5 - 15 ml IV UD PRN PRN Reason: SALINE FLUSH Last Admin: 10/03/18 09:17 Dose: 10 ml Sodium Chloride ([place] Nasal [place]) 2 spray NASAL TID PRN PRN PRN Reason: NASAL DRYNESS Last Admin: 10/03/18 01:16 Dose: 2 spray Trazodone HCl (Desyrel) 150 mg PO DAILY [facility] Last Admin: 10/03/18 09:23 Dose: 150 mg Medical Necessity - Tobacco Use Smoking Status: Heavy Smoker (>10/day) Tobacco Use: Cigarettes Assessment/Plan All Active Problems Biliary colic (Acute) Community acquired pneumonia (Acute) Previous back surgery (Acute) S/P hysterectomy (Acute) S/P carpal tunnel release (Acute) S/P knee surgery (Acute) S/P correction of deviated nasal septum (Acute) Status post thyroidectomy (Acute) H/O heart artery stent (Acute) Status post amputation of right foot (Acute) Depression (Acute) Anxiety (Acute) Nausea and vomiting (Acute) GERD (gastroesophageal reflux disease) (Acute) Heart disease (Acute) 63-year-old female admitted with a complaint of shortness of breath and productive cough 1. Community acquired pneumonia * CXR showed bilateral lower lobe infiltrates * wbc has trended down to 13.5 today. * on IV levaquin. urine for strep and legionella antigen were negative. sputm culture was negative and blood cultures were also negative. * continue IV levaquin. * requiring increasing amounts of oxygen and is now on 6L of oxygen * continue breathing treatments * * 2. acute on Chronic hypoxic respiratory failure * now on 6L of oxygen. baseline is 3L of oxygen * pulmonology consulted * BNP was only 24, making heart failure very unlikely * 2D echo ordered. * continue breathing treatments and titrate oxygen to maintain sats >90% * 3. Hypertension: Fairly controlled for age. On metoprolol 4. Hypothyroidism: On Synthroid 5. GERD: On PPI 6. Depression: On fluoxetine and trazodone 7. Chronic back pain and osteoporosis: on baclofen, abaloparatide and calcium carbonate. DVT prophylaxis: Lovenox * Code Visit Inpatient E&M: 56080 [facility] Hosp L3
[2018-10-03] MEDS: 0.9% Normal Saline 1,000 ML 999 ML IV ×2 (11:00→13:48)
[2018-10-03 11:09] LABS: M R Staph aureus DNA By PCR Negative (Negative); Probe Check PASS; Specimen Processing Control PASS
[2018-10-03] MEDS: Acetaminophen 325 MG Tablet 650 MG PO (11:25)
[2018-10-03] MEDS: Calcium (Elemental) 500 MG Tablet PO (11:25)
--- NOTE | 2018-10-03 11:26 | PCM.RX.CS ---
Consult Pharmacy has been consulted to manage selected antiobiotic: Vancomycin Type of Consult: New start Suspected Infection: Pneumonia Labs: Sodium 144 mmol/L (136-145) 10/03/18 06:20 Potassium 3.9 mmol/L (3.5-5.1) 10/03/18 06:20 Chloride 103 mmol/L (98-107) 10/03/18 06:20 Carbon Dioxide 35.0 mmol/L (21.0-32.0) H 10/03/18 06:20 Anion Gap 6 (5-15) 10/03/18 06:20 BUN 15 mg/dL (7-18) 10/03/18 06:20 Creatinine 1.02 mg/dL (0.55-1.02) 10/03/18 06:20 Est GFR (MDRD) Af Amer 70 mL/min (>60) 10/03/18 06:20 Est GFR (MDRD) Non-Af 58 mL/min (>60) L 10/03/18 06:20 BUN/Creatinine Ratio 14.7 RATIO (10-20) 10/03/18 06:20 Glucose 102 mg/dL (74-106) 10/03/18 06:20 Microbiology: Microbiology 10/01/18 22:52 Sputum, Expectorated/Coughed Gram Stain - Final 10/01/18 22:52 Sputum, Expectorated/Coughed Respiratory Culture - Preliminary Appears to be normal respiratory gera. Further studies to follow. 09/30/18 08:20 Blood Culture (Wb) - Anticubital Left Blood Culture - Preliminary No growth in 48 hours. 09/30/18 09:30 Blood Culture (Wb) #2 - Anticubital Left Blood Culture - Preliminary No growth in 48 hours. 09/30/18 14:43 Urine, Clean Catch Streptococcus pneumoniae Antigen (M - Final 09/30/18 14:43 Urine, Clean Catch Legionella Antigen - Final Weight used for dosin kg Estimated Creatinine Clearance: 37 mL/min Goal Trough: 15-20 mcg/mL Pharmacy Plan for Drug Dosing: Vancomycin 1750mg IV x1 followed by 100mg IV q24h with trough prior to 3rd dose per policy. Pharmacy Service will continue to monitor and adjust dosing as required. Follow-Up Labs: Trough Vancomycin - 10/05 @ 1130
[2018-10-03] MEDS: 0.9% Normal Saline 1,000 ML 500 ML IV (12:26)
--- NOTE | 2018-10-03 14:22 | CT_ITS ---
STUDY: CTA CHEST REASON FOR EXAM: Female, 63 years old. Shortness of breath RADIATION DOSAGE (If Supplied By Facility): CTDIvol = ( 13.85 ) mGy, DLP = ( 514.42 ) mGycm TECHNIQUE: The examination was performed with the intravenous administration of 100 IV Isovue 370. Post-processing of the angiographic images was performed, with multiplanar reformation and 3D reconstruction. Individualized dose optimization techniques were used for this CT. COMPARISON: None. FINDINGS: Normal enhancement of the main pulmonary artery and right and left pulmonary arteries. Normal enhancement of the bilateral peripheral pulmonary arteries. There is no demonstrated pulmonary embolism. Normal thoracic aorta and visualized great vessels. There is no demonstrated aortic dissection. Normal heart and pericardium. Normal mediastinum. Normal hilar regions. Normal visualized trachea and bronchi. The lungs are well expanded. Mild patchy groundglass densities with interstitial prominence in the upper lobes. Probable interstitial densities/atelectasis bilaterally. Left lower lobe consolidation. Probable nodular scarring in the right lung base. Normal pleura. Normal chest wall structures. Old sternal fracture. Moderate degenerative vertebral changes with surgical fusion of lower thoracic to upper lumbar levels. Mild old compression of T4. Severe old compression of T8 and T12. Retropulsion is noted of the T12 segment with previous laminectomy. Normal visualized upper abdomen. CT/CTA Chest W/WO Contrast IMPRESSION: No demonstrated pulmonary embolism or arterial dissection. Bilateral basilar consolidations/atelectasis, left significantly more than right. Possible nodular scarring in the right base. Interstitial prominence and groundglass densities in the upper lobes. Postsurgical and posttraumatic changes as noted of the osseous structures. Electronically Signed: Kings Brumfield DO at 15:39 EDT Tel [phone], Service support ,
[2018-10-03] MEDS: 0.9% Normal Saline 1,000 ML 150 ML IV (18:09)
[2018-10-03] MEDS: Atorvastatin Calcium 80 MG Tablet PO (21:58)
--- NOTE | 2018-10-03 23:14 | PCM.HOSP.N ---
Hospitalist Note Patient with ongoing hypotensive despite IVFs. Evaluated prior per Dr. Raza, ICU, abx changed. Will transition from PCU to ICU for more close monitoring and in case of pressor therapy needs. Will administer additional IVF bolus now.
[2018-10-03 23:41] LABS: Allen Test POS; Base Excess 2 mmol/L (-2 to +2); Bicarbonate 29.3 mmol/L (22-26); Blood Gas Specimen Type ART; O2 Delivery Device Nasal Can; PO2 78 mmHG (75-100); SITE L Radial; SO2 93 % (95-99); Time Given 2330; Total Carbon Dioxide 31 mmol/L; pCO2 66.3 mmHg (35-45); pH 7.25 (7.35-7.45)
--- NOTE | 2018-10-03 23:52 | NURSING ---
transferred pt to ICU bed [address] Lisa's order. report given to Alexus Loza upon arrival to ICU pt obtunded; ABG obtained.
--- NOTE | 2018-10-03 23:59 | NURSING ---
left voicemail using cell phone number listed in demographics for to call [facility]. need to update on transfer to ICU will try again to reach him
[2018-10-04] VITALS (52 sets, daily range): BP systolic 63–150; BP diastolic 38–107; PULSE 36–83; RESP 10–20; TEMP 36.3–37.9; O2SAT 40–100
[2018-10-04] MEDS: 0.9% Normal Saline 1,000 ML 999 ML IV (00:05)
--- NOTE | 2018-10-04 01:08 | RAD_ITS ---
STUDY: X-RAY - ABDOMEN/PELVIS REASON FOR EXAM: Female, 63 years old. OG tube placement TECHNIQUE: Single AP view of the abdomen / pelvis. COMPARISON: None. FINDINGS: Small bilateral pleural effusions. Compressive atelectasis in the right and left lung bases. An OG tube is seen its tip is below the diaphragm is in good position. There is an unremarkable bowel gas pattern. There is no demonstrated free abdominal air. The visualized liver, spleen and kidneys are grossly normal in size and morphology. Normal soft tissue structures. Hardware is seen in the lower thoracic spine and throughout the lumbar spine. RAD/Abdomen Single View (Portable) IMPRESSION: An OG tube is seen its tip is below the diaphragm is in good position. Electronically Signed: Flores Fuller, at 4:17 EDT Tel , Service support ,
--- NOTE | 2018-10-04 01:10 | RAD_ITS ---
STUDY: X-RAY CHEST REASON FOR EXAM: Female, 63 years old. Respiratory distress TECHNIQUE: Single AP portable view of the chest. COMPARISON: 09/30/2018 FINDINGS: Endotracheal tube is seen its tip is 4 cm superior to the katie. An NG tube is seen its tip is below the diaphragm is in good position. Ill-defined airspace disease in the right lung base suggesting compressive atelectasis. There is a small right pleural effusion. Normal size heart. Normal mediastinum and gage. Normal visualized pulmonary arteries. Normal visualized aortic arch and descending thoracic aorta. There are diffuse degenerative changes of the visualized thoracic spine. Postsurgical changes are present in the lower thoracic spine and in the lumbar spine. Normal visualized ribs, clavicles, and shoulders. There is no demonstrated abnormality of the visualized soft tissue structures of the upper abdomen. RAD/Chest 1 View (Portable) IMPRESSION: Endotracheal tube is seen its tip is 4 cm superior to the katie. An NG tube is seen its tip is below the diaphragm is in good position. Ill-defined airspace disease in the right lung base suggesting compressive atelectasis. There is a small right pleural effusion. Electronically Signed: Flores Fuller, at 4:00 EDT Tel , Service support ,
[2018-10-04 01:11] LABS: Allen Test POS; Base Excess 2 mmol/L (-2 to +2); Bicarbonate 29.1 mmol/L (22-26); Blood Gas Specimen Type ART; EPAP 10; FI02 60; IPAP 20; PO2 85 mmHG (75-100); RR 15; SITE L Radial; SO2 94 % (95-99); Time Given 54; Total Carbon Dioxide 31 mmol/L; pCO2 68.5 mmHg (35-45); pH 7.24 (7.35-7.45)
[2018-10-04] MEDS: Midazolam 5 MG/ML Syringe 4 MG IV (01:26)
[2018-10-04] MEDS: Etomidate 20 MG/10 ML Vial IV (01:27)
--- NOTE | 2018-10-04 01:27 | NURSING ---
Dr. Lisa at bedside for emergent intubation after Bipap therapy unsuccessful. Respiratory therapy at bedside to assist as well as nursing staff and warehouse clerk. 0126 - 4mg IV Versed given by Alexus Loza, RN 0127 - 20mg IV Etomidate given by Alexus Loza RN 0129 - 7.[address] Lisa, 23 cm @ lip, pt tolerated well, positive color change noted 0130 - Lungs sounds heard bilat per Dr. Lisa
[2018-10-04] MEDS: fentaNYL drip 100 ML 5 MCG IV ×3 (01:30→17:09)
--- NOTE | 2018-10-04 01:34 | PCM.HOSP.N ---
Hospitalist Note Intubation Note: Patient with evidence of respiratory and/or impending distress. ABG had been obtained with noted hypercapnia and hypoxia with placement on BiPAP therapy however repeat ABG with no improvement and ongoing lethargy which has progressed. Medications administered: Versed 4 mg IV x1, etomidate 20 mg IV x1. ETT size: 7.5 Patient intubated in standard fashion with visualization of the vocal cords and passage of the ETT. Patient with notable amount of purulent appearing secretions with repeat sputum culture sample obtained. Positioning verified with auscultation. Post-intubation CXR requested. Patient currently maintained in the ICU with consultation to ICU physician already ongoing. Will maintain patient on AC settings as ordered and per discussion with RT. Will continue sedation w/ fentanyl given patient blood pressures. Will obtain AM CXR repeat. Code Visit Procedures: [id number] Insert Emergency Airway
[2018-10-04] MEDS: 0.9% NaCl Peripheral Flush Adult/Peds IV (01:54)
[2018-10-04] MEDS: Propofol 10MG/Ml 1,000 MG/100 ML Bottle 4.5 MG CONT INF ×2 (02:04→16:11)
[2018-10-04] MEDS: CHLORHEXIDINE GLUC 2% CLOTH 1 EACH TOWELETTE TOPICAL (02:14)
[2018-10-04] MEDS: 0.9% Normal Saline 1,000 ML 150 ML IV ×2 (02:23→08:26)
--- NOTE | 2018-10-04 02:47 | NURSING ---
Attempted to call pt's Forrest again to give an update of pt. being intubated. No answer, voicemail left.
--- NOTE | 2018-10-04 03:00 | CPS ---
Blood gas critical read to . Physician aware.
[2018-10-04 04:41] LABS: Allen Test POS; Base Excess 3 mmol/L (-2 to +2); Bicarbonate 27.3 mmol/L (22-26); Blood Gas Specimen Type ART; FI02 80; Mode A-C; O2 Delivery Device Vent; PEEP 5; PO2 165 mmHG (75-100); RR 16; SITE L Radial; SO2 99 % (95-99); Time Given 430; Total Carbon Dioxide 29 mmol/L; Vt 450; pCO2 42.9 mmHg (35-45); pH 7.41 (7.35-7.45)
[2018-10-04 04:56] LABS: Absolute Lymphocyte Count 2.37 X10^3/ul (0.83-4.51); Absolute Neutrophil Count 8.7 X10^3/uL (2.0-7.7); Basophil# 0.01 X10^3/uL; Basophil% 0.1 % (0-1); Eosinophil# 0.17 X10^3/uL; Eosinophils% 1.4 % (0-5); Hematocrit 31.3 % (37-47); Hemoglobin 9.2 g/dl (12.0-15.0); Lymphocyte # 2.37 X10^3/ul (4.0); Lymphocyte % 19.6 % (19-41); Mean Corp Hgb Conc 29.4 g/gl (32-36); Mean Corpuscular Hgb 28.1 pg (27.0-32.0); Mean Corpuscular Volume 95.7 fL (81-99); Mean Platelet Vol. 9.2 fl (6.2-12.0); Monocyte# 0.84 X10^3/uL; Monocyte% 6.9 % (0-10); Neutrophil # 8.68 X10^3/uL (2.7-7.7); Neutrophil % 71.8 % (47-70); Platelet Count 439 K/mm3 (150-450); RBC Distribution Width CV 16.8 % (11.6-14.6); RBC Distribution Width SD 56.2 fl (35.1-43.9); Red Blood Count 3.27 M/mm3 (4.2-5.4); White Blood Count 12.1 K/mm3 (4.4-11.0)
[2018-10-04 05:22] LABS: POSITIVE COUNT NO; POSITIVE DIFFERENTIAL NO; POSITIVE MORPHOLOGY NO
[2018-10-04 05:27] LABS: Anion Gap 6 (5-15); BUN 10 mg/dL (7-18); BUN/Creat Ratio 14.7 RATIO (10-20); CPK Total, Creatine Kinase 65 U/L (26-192); Calcium,Total 8.1 mg/dL (8.5-10.1); Chloride 112 mmol/L (98-107); Creatinine, Serum 0.68 mg/dL (0.55-1.02); EST Glomerular Filtration Rate 93 mL/min (>60); Est Glom Filt Rate - Afr Amer 113 mL/min (>60); Estimated Creatinine Clearance 100.93 ml/min; Glucose 77 mg/dL (74-106); Magnesium 1.6 mg/dL (1.6-2.6); Phosphorus 1.8 mg/dL (2.5-4.9); Sodium Level 148 mmol/L (136-145); Triglycerides 179 mg/dL
[2018-10-04] MEDS: Levothyroxine 88 MCG Tablet GT (05:43)
[2018-10-04] MEDS: Ipratropium/Albuterol Sulfate 3 ML AMPUL.NEB INHALATION ×4 (06:41→18:40)
--- NOTE | 2018-10-04 06:53 | PCM.PN.INT ---
Subjective: Patient decompensated overnight and was transferred to the intensive care unit. Patient reportedly arrived to the intensive care unit of the obtunded and ABG showed CO2 retention. Patient was intubated and placed on propofol and fentanyl. Patient was hypotensive initially, but responded to fluid boluses. Levophed has not been required. General: - - Intubated and sedated. RASS -2. Good vent synchrony. Obese. HEENT: Atraumatic, PERRLA, EOMI, Normocephalic, - - No scleral icterus or injection noted. Oral: Moist Mucosa, No Gingival or Mucosal Lesions/ Ulcerations Neck: Supple, No JVD, No Nodes, Trachea Midline Lungs: No rhonchi, No rales, Diminished, Wheezes, - - Symmetric expansion. No dullness to percussion. Cardiovascular: Regular rate, Regular Rhythm, Normal S1, Normal S2, No murmurs, No rub noted, No Gallop Abdomen: Bowel Sounds Present, Soft, Non Tender, Non-Distended Extremities: No clubbing, No cyanosis, No edema, - - Right BKA Skin: No rashes, No breakdown Musculoskeletal: No Tenderness to Palpation of Joints or Extremities Lymphatic: No Cervical, Supraclavicular, or Inguinal Adenopathy Neurological: Cranial nerves II-XII grossly intact, Neuro grossly intact, Motor Exam 5/5 strength throughout Psych/Mental Status: Appropriate, Flat Affect Vital Signs Temp Pulse Resp BP Pulse Ox 37.8 C H 60 16 115/67 98 10/04/18 06:00 10/04/18 06:00 10/04/18 06:00 10/04/18 06:00 10/04/18 06:00 Oxygen Flow Rate (L/min) 6 Oxygen Delivery Method Mechanical Ventilator Weight: 75.5 kg Body Mass Index (BMI) 33.0 Intake and Output for Last 24 Hours 10/02/18 10/03/18 10/04/18 23:59 23:59 23:59 Intake Total 1300 / 1300 5359 / 5359 1805 / 1805 Output Total 800 / 800 Balance 1300 / 1300 5359 / 5359 1005 / 1005 Labs (Last 48 Hours) 10/02/18 10/02/18 10/03/18 07:08 07:08 06:20 WBC 15.7 H 13.5 H RBC 4.09 L 3.88 L Hgb 11.7 L 11.3 L Hct 38.5 36.6 L MCV 94.1 94.3 MCH 28.6 29.1 MCHC 30.4 L 30.9 L RDW 17.2 H 17.0 H RDW Differential 58.5 H 58.0 H Plt Count 502 H 500 H MPV 9.3 9.4 Immature Gran % (Auto) 0.200 0.200 Neut % (Auto) 77.4 H 72.2 H Lymph % (Auto) 16.4 L 18.4 L [place] % (Auto) 5.0 7.0 Eos % (Auto) 0.9 2.1 Baso % (Auto) 0.1 0.1 Absolute Neuts (auto) 12.2 H 9.8 H Absolute Lymphs (auto) 2.58 2.49 Total Counted Not Reportable Not Reportable Specimen Type Sample Site pH Bicarbonate Actual POC Total CO2 Base Excess O2 Saturation O2 % ABG pCO2 ABG pO2 Luke Test Respiration Rate O2 Delivery Device Liter Flow Minute Volume Vent Mode Tidal Volume POC PEEP EPAP IPAP Blood Gas Notified Whom Blood Gas Notified Time Sodium 142 Potassium 3.9 Chloride 101 Carbon Dioxide 35.0 H Anion Gap 6 BUN 16 Creatinine 0.74 Estim Creat Clear Calc 87.95 Est GFR (MDRD) Af Amer 101 Est GFR (MDRD) Non-Af 84 BUN/Creatinine Ratio 21.5 H Glucose 93 Calcium 9.1 Phosphorus Magnesium Total Creatine Kinase B-Natriuretic Peptide Triglycerides MRSA (PCR) 10/03/18 10/03/18 10/03/18 06:20 06:20 09:40 WBC RBC Hgb Hct MCV MCH MCHC RDW RDW Differential Plt Count MPV Immature Gran % (Auto) Neut % (Auto) Lymph % (Auto) [place] % (Auto) Eos % (Auto) Baso % (Auto) Absolute Neuts (auto) Absolute Lymphs (auto) Total Counted Specimen Type Sample Site pH Bicarbonate Actual POC Total CO2 Base Excess O2 Saturation O2 % ABG pCO2 ABG pO2 Luke Test Respiration Rate O2 Delivery Device Liter Flow Minute Volume Vent Mode Tidal Volume POC PEEP EPAP IPAP Blood Gas Notified Whom Blood Gas Notified Time Sodium 144 Potassium 3.9 Chloride 103 Carbon Dioxide 35.0 H Anion Gap 6 BUN 15 Creatinine 1.02 Estim Creat Clear Calc 63.81 Est GFR (MDRD) Af Amer 70 Est GFR (MDRD) Non-Af 58 L BUN/Creatinine Ratio 14.7 Glucose 102 Calcium 9.0 Phosphorus Magnesium Total Creatine Kinase B-Natriuretic Peptide 24.7 Triglycerides MRSA (PCR) Negative 10/03/18 10/04/18 10/04/18 23:37 01:01 04:33 WBC RBC Hgb Hct MCV MCH MCHC RDW RDW Differential Plt Count MPV Immature Gran % (Auto) Neut % (Auto) Lymph % (Auto) [place] % (Auto) Eos % (Auto) Baso % (Auto) Absolute Neuts (auto) Absolute Lymphs (auto) Total Counted Specimen Type ART ART ART Sample Site L Radial L Radial L Radial pH 7.25 L 7.24 L 7.41 Bicarbonate Actual 29.3 H 29.1 H 27.3 H POC Total CO2 31 31 29 Base Excess 2 2 3 H O2 Saturation 93 L 94 L 99 O2 % 60 80 ABG pCO2 66.3 H 68.5 H* 42.9 ABG pO2 78 85 165 H Luke Test POS POS POS Respiration Rate 15 16 O2 Delivery Device Nasal Can Bi / C PAP Vent Liter Flow 6.0 Minute Volume 7.00 Vent Mode A-C Tidal Volume 450 POC PEEP 5 EPAP 10 IPAP 20 Blood Gas Notified Whom ICU HOSP HOSP Blood Gas Notified Time 2330 54 430 Sodium Potassium Chloride Carbon Dioxide Anion Gap BUN Creatinine Estim Creat Clear Calc Est GFR (MDRD) Af Amer Est GFR (MDRD) Non-Af BUN/Creatinine Ratio Glucose Calcium Phosphorus Magnesium Total Creatine Kinase B-Natriuretic Peptide Triglycerides MRSA (PCR) 10/04/18 10/04/18 04:45 04:45 WBC 12.1 H RBC 3.27 L Hgb 9.2 L Hct 31.3 L MCV 95.7 MCH 28.1 MCHC 29.4 L RDW 16.8 H RDW Differential 56.2 H Plt Count 439 MPV 9.2 Immature Gran % (Auto) 0.200 Neut % (Auto) 71.8 H Lymph % (Auto) 19.6 [place] % (Auto) 6.9 Eos % (Auto) 1.4 Baso % (Auto) 0.1 Absolute Neuts (auto) 8.7 H Absolute Lymphs (auto) 2.37 Total Counted Not Reportable Specimen Type Sample Site pH Bicarbonate Actual POC Total CO2 Base Excess O2 Saturation O2 % ABG pCO2 ABG pO2 Luke Test Respiration Rate O2 Delivery Device Liter Flow Minute Volume Vent Mode Tidal Volume POC PEEP EPAP IPAP Blood Gas Notified Whom Blood Gas Notified Time Sodium 148 H Potassium 4.0 Chloride 112 H Carbon Dioxide 30.0 Anion Gap 6 BUN 10 Creatinine 0.68 Estim Creat Clear Calc 100.93 Est GFR (MDRD) Af Amer 113 Est GFR (MDRD) Non-Af 93 BUN/Creatinine Ratio 14.7 Glucose 77 Calcium 8.1 L Phosphorus 1.8 L Magnesium 1.6 Total Creatine Kinase 65 B-Natriuretic Peptide Triglycerides 179 MRSA (PCR) Microbiology 10/01/18 22:52 Sputum, Expectorated/Coughed Gram Stain - Final 10/01/18 22:52 Sputum, Expectorated/Coughed Respiratory Culture - Preliminary Appears to be normal respiratory gera. Further studies to follow. 09/30/18 08:20 Blood Culture (Wb) - Anticubital Left Blood Culture - Preliminary No growth in 48 hours. 09/30/18 09:30 Blood Culture (Wb) #2 - Anticubital Left Blood Culture - Preliminary No growth in 48 hours. Clinical Impression(s) from Imaging Studies Chest X-Ray 09/30/18 08:55 IMPRESSION: Bibasilar infiltrates worse on the right side with blunting of the costophrenic angles worse on the right side. Nodular densities in the right hemithorax as described. These most likely represent healing rib fractures. Electronically Signed: Luis Antonio Mota, at 9:33 EDT , Service support , Chest CTA 10/03/18 14:22 IMPRESSION: No demonstrated pulmonary embolism or arterial dissection. Bilateral basilar consolidations/atelectasis, left significantly more than right. Possible nodular scarring in the right base. Interstitial prominence and groundglass densities in the upper lobes. Postsurgical and posttraumatic changes as noted of the osseous structures. Electronically Signed: Kings Brumfield DO at 15:39 EDT Tel [phone], Service support , KUB X-Ray 10/04/18 01:08 IMPRESSION: An OG tube is seen its tip is below the diaphragm is in good position. Electronically Signed: Flores Fuller at 4:17 EDT Tel , Service support , Chest X-Ray 10/04/18 01:10 IMPRESSION: Endotracheal tube is seen its tip is 4 cm superior to the katie. An NG tube is seen its tip is below the diaphragm is in good position. Ill-defined airspace disease in the right lung base suggesting compressive atelectasis. There is a small right pleural effusion. Electronically Signed: Flores Fuller, at 4:00 EDT Tel , Service support , Medical Necessity - Tobacco Use Smoking Status: Heavy Smoker (>10/day) Tobacco Use: Cigarettes Assessment/Plan All Active Problems Biliary colic (Acute) Community acquired pneumonia (Acute) Previous back surgery (Acute) S/P hysterectomy (Acute) S/P carpal tunnel release (Acute) S/P knee surgery (Acute) S/P correction of deviated nasal septum (Acute) Status post thyroidectomy (Acute) H/O heart artery stent (Acute) Status post amputation of right foot (Acute) Depression (Acute) Anxiety (Acute) Nausea and vomiting (Acute) GERD (gastroesophageal reflux disease) (Acute) Heart disease (Acute) RECOMMENDATIONS: 1. Await echocardiogram 2. Check MRSA screen. 3. Likely discontinue vancomycin later today given negative MRSA screen 4. Spontaneous awakening and breathing trials per protocol 5. Wean supplemental oxygen to maintain saturations at or above 90%. 6. Continue bronchodilators as ordered. IMPRESSIONS: 1. Acute combined respiratory failure secondary to community-acquired pneumonia Patient with decompensation overnight requiring mechanical ventilation. Last arterial blood gas shows adequate oxygenation and ventilation on current settings. Likely okay to discontinue vancomycin, but continue bronchodilators, Levaquin and Solu-Medrol. Repeat cultures will be obtained. Patient did have groundglass opacities on bilateral upper lobes on presentation. BNP is unimpressive, but echocardiogram is currently pending. Will discontinue patient's theophylline as this can lead to significant drug drug interactions and likely adds no significant improvement over bronchodilators. 2. Personal history of tobacco dependency Smoking cessation counseling was provided. The patient undoubtedly will need to be followed in the pulmonary medicine clinic so that baseline PFTs can be obtained to confirm or refute a diagnosis of COPD. 3. History of obstructive sleep apnea Patient reportedly is compliant with RAUL therapy as an outpatient. Likely reinitiate baseline CPAP upon extubation. 4. Hypertension/hypothyroidism/GERD/depression/anxiety/chronic pain syndrome Complicates care, management, recovery and prognosis. Continue home medications as indicated. TIME: 37 minutes critical care time spent addressing patient's acute combined respiratory failure, hypotension, review of all data and collaboration with care team. (5:45 AM to 6:45 AM) Code Visit 9xxxx: [id number] Critical care first hour
--- NOTE | 2018-10-04 07:01 | PN_ITS ---
Subjective: Patient decompensated overnight and was transferred to the intensive care unit. Patient reportedly arrived to the intensive care unit of the obtunded and ABG showed CO2 retention. Patient was intubated and placed on propofol and fentanyl. Patient was hypotensive initially, but responded to fluid boluses. Levophed has not been required. General: - - Intubated and sedated. RASS -2. Good vent synchrony. Obese. HEENT: Atraumatic, PERRLA, EOMI, Normocephalic, - - No scleral icterus or injec tion noted. Oral: Moist Mucosa, No Gingival or Mucosal Lesions/ Ulcerations Neck: Supple, No JVD, No Nodes, Trachea Midline Lungs: No rhonchi, No rales, Diminished, Wheezes, - - Symmetric expansion. No dullness to percussion. Cardiovascular: Regular rate, Regular Rhythm, Normal S1, Normal S2, No murmurs, No rub noted, No Gallop Abdomen: Bowel Sounds Present, Soft, Non Tender, Non-Distended Extremities: No clubbing, No cyanosis, No edema, - - Right BKA Skin: No rashes, No breakdown Musculoskeletal: No Tenderness to Palpation of Joints or Extremities Lymphatic: No Cervical, Supraclavicular, or Inguinal Adenopathy Neurological: Cranial nerves II-XII grossly intact, Neuro grossly intact, Motor Exam 5/5 strength throughout Psych/Mental Status: Appropriate, Flat Affect Vital Signs Temp Pulse Resp BP Pulse Ox 37.8 C H 60 16 115/67 98 10/04/18 06:00 10/04/18 06:00 10/04/18 06:00 10/04/18 06:00 10/04/18 06:00 Oxygen Flow Rate (L/min) 6 Oxygen Delivery Method Mechanical Ventilator Weight: 75.5 kg Body Mass Index (BMI) 33.0 Intake and Output for Last 24 Hours 10/02/18 10/03/18 10/04/18 23:59 23:59 23:59 Intake Total 1300 / 1300 5359 / 5359 1805 / 1805 Output Total 800 / 800 Balance 1300 / 1300 5359 / 5359 1005 / 1005 Labs (Last 48 Hours) 10/02/18 10/02/18 10/03/18 07:08 07:08 06:20 WBC 15.7 H 13.5 H RBC 4.09 L 3.88 L Hgb 11.7 L 11.3 L Hct 38.5 36.6 L MCV 94.1 94.3 MCH 28.6 29.1 MCHC 30.4 L 30.9 L RDW 17.2 H 17.0 H RDW Differential 58.5 H 58.0 H Plt Count 502 H 500 H MPV 9.3 9.4 Immature Gran % (Auto) 0.200 0.200 Neut % (Auto) 77.4 H 72.2 H Lymph % (Auto) 16.4 L 18.4 L [place] % (Auto) 5.0 7.0 Eos % (Auto) 0.9 2.1 Baso % (Auto) 0.1 0.1 Absolute Neuts (auto) 12.2 H 9.8 H Absolute Lymphs (auto) 2.58 2.49 Total Counted Not Reportable Not Reportable Specimen Type Sample Site pH Bicarbonate Actual POC Total CO2 Base Excess O2 Saturation O2 % ABG pCO2 ABG pO2 Luke Test Respiration Rate O2 Delivery Device Liter Flow Minute Volume Vent Mode Tidal Volume POC PEEP EPAP IPAP Blood Gas Notified Whom Blood Gas Notified Time Sodium 142 Potassium 3.9 Chloride 101 Carbon Dioxide 35.0 H Anion Gap 6 BUN 16 Creatinine 0.74 Estim Creat Clear Calc 87.95 Est GFR (MDRD) Af Amer 101 Est GFR (MDRD) Non-Af 84 BUN/Creatinine Ratio 21.5 H Glucose 93 Calcium 9.1 Phosphorus Magnesium Total Creatine Kinase B-Natriuretic Peptide Triglycerides MRSA (PCR) 10/03/18 10/03/18 10/03/18 06:20 06:20 09:40 WBC RBC Hgb Hct MCV MCH MCHC RDW RDW Differential Plt Count MPV Immature Gran % (Auto) Neut % (Auto) Lymph % (Auto) [place] % (Auto) Eos % (Auto) Baso % (Auto) Absolute Neuts (auto) Absolute Lymphs (auto) Total Counted Specimen Type Sample Site pH Bicarbonate Actual POC Total CO2 Base Excess O2 Saturation O2 % ABG pCO2 ABG pO2 Luke Test Respiration Rate O2 Delivery Device Liter Flow Minute Volume Vent Mode Tidal Volume POC PEEP EPAP IPAP Blood Gas Notified Whom Blood Gas Notified Time Sodium 144 Potassium 3.9 Chloride 103 Carbon Dioxide 35.0 H Anion Gap 6 BUN 15 Creatinine 1.02 Estim Creat Clear Calc 63.81 Est GFR (MDRD) Af Amer 70 Est GFR (MDRD) Non-Af 58 L BUN/Creatinine Ratio 14.7 Glucose 102 Calcium 9.0 Phosphorus Magnesium Total Creatine Kinase B-Natriuretic Peptide 24.7 Triglycerides MRSA (PCR) Negative 10/03/18 10/04/18 10/04/18 23:37 01:01 04:33 WBC RBC Hgb Hct MCV MCH MCHC RDW RDW Differential Plt Count MPV Immature Gran % (Auto) Neut % (Auto) Lymph % (Auto) [place] % (Auto) Eos % (Auto) Baso % (Auto) Absolute Neuts (auto) Absolute Lymphs (auto) Total Counted Specimen Type ART ART ART Sample Site L Radial L Radial L Radial pH 7.25 L 7.24 L 7.41 Bicarbonate Actual 29.3 H 29.1 H 27.3 H POC Total CO2 31 31 29 Base Excess 2 2 3 H O2 Saturation 93 L 94 L 99 O2 % 60 80 ABG pCO2 66.3 H 68.5 H* 42.9 ABG pO2 78 85 165 H Luke Test POS POS POS Respiration Rate 15 16 O2 Delivery Device Nasal Can Bi / C PAP Vent Liter Flow 6.0 Minute Volume 7.00 Vent Mode A-C Tidal Volume 450 POC PEEP 5 EPAP 10 IPAP 20 Blood Gas Notified Whom ICU MD HOSP HOSP Blood Gas Notified Time 2330 54 430 Sodium Potassium Chloride Carbon Dioxide Anion Gap BUN Creatinine Estim Creat Clear Calc Est GFR (MDRD) Af Amer Est GFR (MDRD) Non-Af BUN/Creatinine Ratio Glucose Calcium Phosphorus Magnesium Total Creatine Kinase B-Natriuretic Peptide Triglycerides MRSA (PCR) 10/04/18 10/04/18 04:45 04:45 WBC 12.1 H RBC 3.27 L Hgb 9.2 L Hct 31.3 L MCV 95.7 MCH 28.1 MCHC 29.4 L RDW 16.8 H RDW Differential 56.2 H Plt Count 439 MPV 9.2 Immature Gran % (Auto) 0.200 Neut % (Auto) 71.8 H Lymph % (Auto) 19.6 [place] % (Auto) 6.9 Eos % (Auto) 1.4 Baso % (Auto) 0.1 Absolute Neuts (auto) 8.7 H Absolute Lymphs (auto) 2.37 Total Counted Not Reportable Specimen Type Sample Site pH Bicarbonate Actual POC Total CO2 Base Excess O2 Saturation O2 % ABG pCO2 ABG pO2 Luke Test Respiration Rate O2 Delivery Device Liter Flow Minute Volume Vent Mode Tidal Volume POC PEEP EPAP IPAP Blood Gas Notified Whom Blood Gas Notified Time Sodium 148 H Potassium 4.0 Chloride 112 H Carbon Dioxide 30.0 Anion Gap 6 BUN 10 Creatinine 0.68 Estim Creat Clear Calc 100.93 Est GFR (MDRD) Af Amer 113 Est GFR (MDRD) Non-Af 93 BUN/Creatinine Ratio 14.7 Glucose 77 Calcium 8.1 L Phosphorus 1.8 L Magnesium 1.6 Total Creatine Kinase 65 B-Natriuretic Peptide Triglycerides 179 MRSA (PCR) Microbiology 10/01/18 22:52 Sputum, Expectorated/Coughed Gram Stain - Final 10/01/18 22:52 Sputum, Expectorated/Coughed Respiratory Culture - Pre liminary Appears to be normal respiratory gera. Further studies to follow. 09/30/18 08:20 Blood Culture (Wb) - Anticubital Left Blood Culture - Preliminary No growth in 48 hours. 09/30/18 09:30 Blood Culture (Wb) #2 - Anticubital Left Blood Culture - Preliminary No growth in 48 hours. Clinical Impression(s) from Imaging Studies Chest X-Ray 09/30/18 08:55 IMPRESSION: Bibasilar infiltrates worse on the right side with blunting of the costophrenic angles worse on the right side. Nodular densities in the right hemithorax as described. These most likely represent healing rib fractures. Electronically Signed: Luis Antonio Mota, at 9:33 EDT , Service support , Chest CTA 10/03/18 14:22 IMPRESSION: No demonstrated pulmonary embolism or arterial dissection. Bilateral basilar consolidations/atelectasis, left significantly more than right. Possible nodular scarring in the right base. Interstitial prominence and groundglass densities in the upper lobes. Postsurgical and posttraumatic changes as noted of the osseous structures. Electronically Signed: Kings Brumfield DO at 15:39 EDT Tel [phone], Service support , KUB X-Ray 10/04/18 01:08 IMPRESSION: An OG tube is seen its tip is below the diaphragm is in good position. Electronically Signed: Flores Crowleyan, at 4:17 EDT Tel , Service support , Chest X-Ray 10/04/18 01:10 IMPRESSION: Endotracheal tube is seen its tip is 4 cm superior to the katie. An NG tube is seen its tip is below the diaphragm is in good position. Ill-defined airspace disease in the right lung base suggesting compressive atelectasis. There is a small right pleural effusion. Electronically Signed: Flores Crowleyan, at 4:00 EDT Tel , Service support , Medical Necessity - Tobacco Use Smoking Status: Heavy Smoker (>10/day) Tobacco Use: Cigarettes Assessment/Plan All Active Problems Biliary colic (Acute) Community acquired pneumonia (Acute) Previous back surgery (Acute) S/P hysterectomy (Acute) S/P carpal tunnel release (Acute) S/P knee surgery (Acute) S/P correction of deviated nasal septum (Acute) Status post thyroidectomy (Acute) H/O heart artery stent (Acute) Status post amputation of right foot (Acute) Depression (Acute) Anxiety (Acute) Nausea and vomiting (Acute) GERD (gastroesophageal reflux disease) (Acute) Heart disease (Acute) RECOMMENDATIONS: 1. Await echocardiogram 2. Check MRSA screen. 3. Likely discontinue vancomycin later today given negative MRSA screen 4. Spontaneous awakening and breathing trials per protocol 5. Wean supplemental oxygen to maintain saturations at or above 90%. 6. Continue bronchodilators as ordered. IMPRESSIONS: 1. Acute combined respiratory failure secondary to community-acquired pneumonia Patient with decompensation overnight requiring mechanical ventilation. Last arterial blood gas shows adequate oxygenation and ventilation on current settings. Likely okay to discontinue vancomycin, but continue bronchodilators, Levaquin and Solu-Medrol. Repeat cultures will be obtained. Patient did have groundglass opacities on bilateral upper lobes on presentation. BNP is unimpressive, but echocardiogram is currently pending. Will discontinue patient's theophylline as this can lead to significant drug drug interactions and likely adds no significant improvement over bronchodilators. 2. Personal history of tobacco dependency Smoking cessation counseling was provided. The patient undoubtedly will need to be followed in the pulmonary medicine clinic so that baseline PFTs can be obtained to confirm or refute a diagnosis of COPD. 3. History of obstructive sleep apnea Patient reportedly is compliant with RAUL therapy as an outpatient. Likely reinitiate baseline CPAP upon extubation. 4. Hypertension/hypothyroidism/GERD/depression/anxiety/chronic pain syndrome Complicates care, management, recovery and prognosis. Continue home medications as indicated. TIME: 37 minutes critical care time spent addressing patient's acute combined respiratory failure, hypotension, review of all data and collaboration with care team. (5:45 AM to 6:45 AM) Code Visit [id number]: [id number] Critical care first hour
[2018-10-04] MEDS: Aspirin 325 MG Tablet GT (08:17)
--- NOTE | 2018-10-04 09:05 | PCM.PN.HOSP ---
Patient Problems: Active and Suspected Problems Community acquired pneumonia (Acute) Subjective: Patient seen and examined. Patient was hypotensive yesterday which responded to IV fluids. However later in the evening, patient decompensated respiratory langford and had to end up being intubated and transferred to ICU. ABG done showed hypercapnia and hypoxia which did not improve on BiPAP. She was therefore subsequently intubated. Hypotension responded to IV fluids and she has not required any vasopressors. Patient remains intubated. She is able to open her eyes and shake or nod her head in response to questions. She denies pain in pain, denies any chest pain, palpitations or dizziness, diarrhea or vomiting. Review of systems otherwise negative. Labs and vitals reviewed. Sodium noted to have trended up to 148 and this is likely due to IV fluid she is receiving. WBC is down to 12.1. 2D echo is pending. Vitals/I&O's: Vital Signs Temp Pulse Resp BP Pulse Ox 100.0 F H 62 16 115/67 98 10/04/18 06:00 10/04/18 06:41 10/04/18 06:41 10/04/18 06:00 10/04/18 06:41 Oxygen Flow Rate (L/min) 6 Oxygen Delivery Method Mechanical Ventilator Weight: 166 lb 7.184 oz Body Mass Index (BMI) 33.0 Intake and Output for Last 24 Hours 10/02/18 10/03/18 10/04/18 23:59 23:59 23:59 Intake Total 1300 / 1300 5359 / 5359 1805 / 1805 Output Total 800 / 800 Balance 1300 / 1300 5359 / 5359 1005 / 1005 General: intubated, sedated HEENT: Atraumatic, PERRLA, EOMI, Normocephalic Oral: Dry Mucosa Neck: Supple, No JVD, Negative Carotid Bruits Lungs: - - diminished breath sounds bibasally, no wheezes or crackles. intubated and sedated. Cardiovascular: Regular rate, Regular Rhythm, Normal S1, Normal S2, No murmurs Abdomen: Bowel Sounds Present, Soft, Non Tender, Non-Distended Extremities: No clubbing, No cyanosis, No edema, Capillary Refill Less than 3 Seconds, right LE BKA Skin: No rashes, No breakdown Musculoskeletal: No Tenderness to Palpation of Joints or Extremities Lymphatic: No Cervical, Supraclavicular, or Inguinal Adenopathy Neurological: intubated, sedated Microbiology Past 72 Hours 10/01/18 22:52 Sputum, Expectorated/Coughed Gram Stain - Final 10/01/18 22:52 Sputum, Expectorated/Coughed Respiratory Culture - Preliminary Appears to be normal respiratory gera. Further studies to follow. 09/30/18 08:20 Blood Culture (Wb) - Anticubital Left Blood Culture - Preliminary No growth in 48 hours. 09/30/18 09:30 Blood Culture (Wb) #2 - Anticubital Left Blood Culture - Preliminary No growth in 48 hours. Laboratory Results 10/03/18 06:20: B-Natriuretic Peptide 24.7 10/03/18 09:40: MRSA (PCR) Negative 10/03/18 23:37: Specimen Type ART, Sample Site L Radial, pH 7.25 L, Bicarbonate Actual 29.3 H, POC Total CO2 31, Base Excess 2, O2 Saturation 93 L, ABG pCO2 66.3 H, ABG pO2 78, Luke Test POS, O2 Delivery Device Nasal Can, Liter Flow 6.0, Blood Gas Notified Whom ICU , Blood Gas Notified Time 2330 10/04/18 01:01: Specimen Type ART, Sample Site L Radial, pH 7.24 L, Bicarbonate Actual 29.1 H, POC Total CO2 31, Base Excess 2, O2 Saturation 94 L, O2 % 60, ABG pCO2 68.5 H*, ABG pO2 85, Luke Test POS, Respiration Rate 15, O2 Delivery Device Bi / C PAP, EPAP 10, IPAP 20, Blood Gas Notified Whom HOSP , Blood Gas Notified Time 54 10/04/18 04:33: Specimen Type ART, Sample Site L Radial, pH 7.41, Bicarbonate Actual 27.3 H, POC Total CO2 29, Base Excess 3 H, O2 Saturation 99, O2 % 80, ABG pCO2 42.9, ABG pO2 165 H, Luke Test POS, Respiration Rate 16, O2 Delivery Device Vent, Minute Volume 7.00, Vent Mode A-C, Tidal Volume 450, POC PEEP 5, Blood Gas Notified Whom HOSP , Blood Gas Notified Time 430 10/04/18 04:45: WBC 12.1 H, RBC 3.27 L, Hgb 9.2 L, Hct 31.3 L, MCV 95.7, MCH 28.1, MCHC 29.4 L, RDW 16.8 H, RDW Differential 56.2 H, Plt Count 439, MPV 9.2, Immature Gran % (Auto) 0.200, Neut % (Auto) 71.8 H, Lymph % (Auto) 19.6, [place] % (Auto) 6.9, Eos % (Auto) 1.4, Baso % (Auto) 0.1, Absolute Neuts (auto) 8.7 H, Absolute Lymphs (auto) 2.37, Total Counted Not Reportable 10/04/18 04:45: Sodium 148 H, Potassium 4.0, Chloride 112 H, Carbon Dioxide 30.0, Anion Gap 6, BUN 10, Creatinine 0.68, Estim Creat Clear Calc 100.93, Est GFR (MDRD) Af Amer 113, Est GFR (MDRD) Non-Af 93, BUN/Creatinine Ratio 14.7, Glucose 77, Calcium 8.1 L, Phosphorus 1.8 L, Magnesium 1.6, Total Creatine Kinase 65, Triglycerides 179 Diagnostic Data Chest CTA 10/03/18 14:22 IMPRESSION: No demonstrated pulmonary embolism or arterial dissection. Bilateral basilar consolidations/atelectasis, left significantly more than right. Possible nodular scarring in the right base. Interstitial prominence and groundglass densities in the upper lobes. Postsurgical and posttraumatic changes as noted of the osseous structures. Electronically Signed: Kings Brumfield DO at 15:39 EDT Tel [phone], Service support , KUB X-Ray 10/04/18 01:08 IMPRESSION: An OG tube is seen its tip is below the diaphragm is in good position. Electronically Signed: Flores Fuller, at 4:17 EDT Tel , Service support , Chest X-Ray 10/04/18 01:10 IMPRESSION: Endotracheal tube is seen its tip is 4 cm superior to the katie. An NG tube is seen its tip is below the diaphragm is in good position. Ill-defined airspace disease in the right lung base suggesting compressive atelectasis. There is a small right pleural effusion. Electronically Signed: Flores Fuller, at 4:00 EDT Tel , Service support , Current Medications Acetaminophen (Tylenol Liquid) 650 mg GT Q6H PRN PRN PRN Reason: PAIN Albuterol Sulfate (Ventolin Aerosols) 2.5 mg INHALATION Q2H PRN PRN PRN Reason: dyspnea, wheezing Albuterol/Ipratropium (Duoneb) 3 ml INHALATION Q4HWA.RT [facility] Last Admin: 10/04/18 06:41 Dose: 3 ml Alendronate Sodium (Fosamax) 70 mg PO QWEEK [facility] Aspirin (Aspirin) 325 mg GT DAILY@0800 [facility] Last Admin: 10/04/18 08:17 Dose: 325 mg Atorvastatin Calcium (Lipitor) 80 mg GT QHS JESSICA Atropine Sulfate () 0.5 mg IV X1 PRN PRN Reason: Bradycardia Baclofen (Lioresal) 10 mg GT DAILY [facility] Bupropion HCl (Wellbutrin Xl) 300 mg PO DAILY [facility] Last Admin: 10/03/18 09:23 Dose: 300 mg Chlorhexidine Gluconate () 15 ml PO BID [facility] Chlorhexidine Gluconate () 1 each TOPICAL DAILY [facility] Last Admin: 10/04/18 02:14 Dose: 1 each Clopidogrel Bisulfate (Plavix) 75 mg GT DAILY [facility] Dextrose (D50w Syringe) 0 gm IV X1 PRN; Protocol PRN Reason: Hypoglycemia Docusate Sodium (Colace Syrup) 100 mg GT DAILY [facility] Enoxaparin Sodium (Lovenox) 40 mg SC DAILY@1000 [facility] Last Admin: 10/03/18 09:23 Dose: 40 mg Fluoxetine HCl (Prozac) 40 mg GT BID [facility] Glucagon () 1 mg IM .X1 PRN PRN Reason: Hypoglycemia Levofloxacin (Levaquin Iv) 750 mg in 150 mls @ 100 mls/hr IV Q24 [facility] Last Admin: 10/03/18 09:17 Dose: 100 mls/hr Vancomycin IV Pharmacy to Dose (1 ea/ Sodium Chloride) 500 mls @ 250 mls/hr IV X1 PRN; Protocol PRN Reason: Rx to Dose Vancomycin HCl (Vancomycin) 1,000 mg in 200 mls @ 200 mls/hr IV Q24H [facility] Sodium Chloride () 1,000 mls @ 150 mls/hr IV .[id number] [facility] Last Admin: 10/04/18 08:26 Dose: 150 mls/hr Famotidine 20 mg/ Sodium (Chloride) 10 mls @ 300 mls/hr IV Q12 [facility] Fentanyl () 100 mls @ 5 mls/hr IV .Q20H [facility] Last Admin: 10/04/18 01:30 Dose: 5 mls/hr Norepinephrine Bitartrate 8 mg (/ Sodium Chloride) 250 mls @ 9.38 mls/hr CONT INF .[id number] [facility] Last Admin: 10/04/18 05:40 Dose: Not Given Propofol (Diprivan) 1,000 mg in 100 mls @ 4.5 mls/hr CONT INF .Q12H [facility]; Protocol Last Admin: 10/04/18 02:04 Dose: 4.5 mls/hr Potassium Phosphate 30 mm/ (Sodium Chloride) 260 mls @ 42 mls/hr IV X1 ONE Stop: 10/04/18 13:11 Last Admin: 10/04/18 08:17 Dose: 42 mls/hr Levothyroxine Sodium (Synthroid) 88 mcg GT DAILY@0600 [facility] Last Admin: 10/04/18 05:43 Dose: 88 mcg Non-Formulary Medication (Abaloparatide [Tymlos]) 0.04 ml SQ DAILY [facility] Last Admin: 10/03/18 09:24 Dose: 0.04 ml Ondansetron HCl (Zofran) 4 mg IV Q8H PRN PRN PRN Reason: NAUSEA/VOMITING Last Admin: 10/03/18 04:21 Dose: 4 mg Oxycodone HCl (Oxyir) 5 mg GT Q4H PRN PRN PRN Reason: PAIN Sodium Chloride () 5 - 15 ml IV UD PRN PRN Reason: SALINE FLUSH Last Admin: 10/04/18 01:54 Dose: 10 ml Sodium Chloride ([place] Nasal [place]) 2 spray NASAL TID PRN PRN PRN Reason: NASAL DRYNESS Last Admin: 10/03/18 01:16 Dose: 2 spray Medical Necessity - Tobacco Use Smoking Status: Heavy Smoker (>10/day) Tobacco Use: Cigarettes Assessment/Plan All Active Problems Biliary colic (Acute) Community acquired pneumonia (Acute) Previous back surgery (Acute) S/P hysterectomy (Acute) S/P carpal tunnel release (Acute) S/P knee surgery (Acute) S/P correction of deviated nasal septum (Acute) Status post thyroidectomy (Acute) H/O heart artery stent (Acute) Status post amputation of right foot (Acute) Depression (Acute) Anxiety (Acute) Nausea and vomiting (Acute) GERD (gastroesophageal reflux disease) (Acute) Heart disease (Acute) 63-year-old female admitted with a complaint of shortness of breath and productive cough 1. acute on chronic hypoxic respiratory failure due to community acquired pneumonia. Was intubated and sedated yesterday on account of worsening respiratory status. ABG done showed pH of 7.25 with PCO2 of 66.3 and PO2 of 78. After she was placed on BiPAP, subsequent ABG showed pH of 7.24 with PCO2 of 60.5. She was subsequently intubated. Currently on IV Levaquin. Continue breathing treatments. Pulmonology on board. Of note, CT a done yesterday was negative for PE and showed bilateral basilar consolidation versus atelectasis was more on the left than the right and interstitial prominence and groundglass opacities in the upper lobes. blood cultures were negative; respiratory culture is also negative. Urine culture pending. 2. Community-acquired pneumonia: As under 1. 3. Septic shock due to community acquired pneumonia was hypotensive yesterday, which responded to IVF boluses didnt require pressors. Currently on IV NS ~ 150cc/hr pulmonology on board 4. Hypertension: Fairly controlled for age. Metoprolol on hold due to hypotension. 5. Hypothyroidism: On Synthroid 6. GERD: On PPI 7. Depression: On fluoxetine and trazodone 8. Chronic back pain and osteoporosis: on baclofen, abaloparatide and calcium carbonate. DVT prophylaxis: Lovenox Code Visit Inpatient E&M: 15482 Subs Hosp L3
--- NOTE | 2018-10-04 09:10 | PN_ITS ---
Patient Problems: Active and Suspected Problems Community acquired pneumonia (Acute) Subjective: Patient seen and examined. Patient was hypotensive yesterday which responded to IV fluids. However later in the evening, patient decompensated respiratory lang[place] and had to end up being intubated and transferred to ICU. ABG done showed hypercapnia and hypoxia which did not improve on BiPAP. She was therefore subsequently intubated. Hypotension responded to IV fluids and she has not required any vasopressors. Patient remains intubated. She is able to open her eyes and shake or nod her head in response to questions. She denies pain in pain, denies any chest pain, palpitations or dizziness, diarrhea or vomiting. Review of systems otherwise negative. Labs and vitals reviewed. Sodium noted to have trended up to 148 and this is likely due to IV fluid she is receiving. WBC is down to 12.1. 2D echo is pending. Vitals/I&O's: Vital Signs Temp Pulse Resp BP Pulse Ox 100.0 F H 62 16 115/67 98 10/04/18 06:00 10/04/18 06:41 10/04/18 06:41 10/04/18 06:00 10/04/18 06:41 Oxygen Flow Rate (L/min) 6 Oxygen Delivery Method Mechanical Ventilator Weight: 166 lb 7.184 oz Body Mass Index (BMI) 33.0 Intake and Output for Last 24 Hours 10/02/18 10/03/18 10/04/18 23:59 23:59 23:59 Intake Total 1300 / 1300 5359 / 5359 1805 / 1805 Output Total 800 / 800 Balance 1300 / 1300 5359 / 5359 1005 / 1005 General: intubated, sedated HEENT: Atraumatic, PERRLA, EOMI, Normocephalic Oral: Dry Mucosa Neck: Supple, No JVD, Negative Carotid Bruits Lungs: - - diminished breath sounds bibasally, no wheezes or crackles. intubated and sedated. Cardiovascular: Regular rate, Regular Rhythm, Normal S1, Normal S2, No murmurs Abdomen: Bowel Sounds Present, Soft, Non Tender, Non-Distended Extremities: No clubbing, No cyanosis, No edema, Capillary Refill Less than 3 Seconds, right LE BKA Skin: No rashes, No breakdown Musculoskeletal: No Tenderness to Palpation of Joints or Extremities Lymphatic: No Cervical, Supraclavicular, or Inguinal Adenopathy Neurological: intubated, sedated Microbiology Past 72 Hours 10/01/18 22:52 Sputum, Expectorated/Coughed Gram Stain - Final 10/01/18 22:52 Sputum, Expectorated/Coughed Respiratory Culture - Preliminary Appears to be normal respiratory gera. Further studies to follow. 09/30/18 08:20 Blood Culture (Wb) - Anticubital Left Blood Culture - Preliminary No growth in 48 hours. 09/30/18 09:30 Blood Culture (Wb) #2 - Anticubital Left Blood Culture - Preliminary No growth in 48 hours. Laboratory Results 10/03/18 06:20: B-Natriuretic Peptide 24.7 10/03/18 09:40: MRSA (PCR) Negative 10/03/18 23:37: Specimen Type ART, Sample Site L Radial, pH 7.25 L, Bicarbonate Actual 29.3 H, POC Total CO2 31, Base Excess 2, O2 Saturation 93 L, ABG pCO2 66.3 H, ABG pO2 78, Luke Test POS, O2 Delivery Device Nasal Can, Liter Flow 6.0, Blood Gas Notified Whom ICU , Blood Gas Notified Time 2330 10/04/18 01:01: Specimen Type ART, Sample Site L Radial, pH 7.24 L, Bicarbonate Actual 29.1 H, POC Total CO2 31, Base Excess 2, O2 Saturation 94 L, O2 % 60, ABG pCO2 68.5 H*, ABG pO2 85, Luke Test POS, Respiration Rate 15, O2 Delivery Device Bi / C PAP, EPAP 10, IPAP 20, Blood Gas Notified Whom HOSP , Blood Gas Notified Time 54 10/04/18 04:33: Specimen Type ART, Sample Site L Radial, pH 7.41, Bicarbonate Actual 27.3 H, POC Total CO2 29, Base Excess 3 H, O2 Saturation 99, O2 % 80, ABG pCO2 42.9, ABG pO2 165 H, Luke Test POS, Respiration Rate 16, O2 Delivery Device Vent, Minute Volume 7.00, Vent Mode A-C, Tidal Volume 450, POC PEEP 5, Blood Gas Notified Whom HOSP , Blood Gas Notified Time 430 10/04/18 04:45: WBC 12.1 H, RBC 3.27 L, Hgb 9.2 L, Hct 31.3 L, MCV 95.7, MCH 28.1, MCHC 29.4 L, RDW 16.8 H, RDW Differential 56.2 H, Plt Count 439, MPV 9.2, Immature Gran % (Auto) 0.200, Neut % (Auto) 71.8 H, Lymph % (Auto) 19.6, Day % (Auto) 6.9, Eos % (Auto) 1.4, Baso % (Auto) 0.1, Absolute Neuts (auto) 8.7 H, Absolute Lymphs (auto) 2.37, Total Counted Not Reportable 10/04/18 04:45: Sodium 148 H, Potassium 4.0, Chloride 112 H, Carbon Dioxide 30.0, Anion Gap 6, BUN 10, Creatinine 0.68, Estim Creat Clear Calc 100.93, Est GFR (MDRD) Af Amer 113, Est GFR (MDRD) Non-Af 93, BUN/Creatinine Ratio 14.7, Glucose 77, Calcium 8.1 L, Phosphorus 1.8 L, Magnesium 1.6, Total Creatine Kinase 65, Triglycerides 179 Diagnostic Data Chest CTA 10/03/18 14:22 IMPRESSION: No demonstrated pulmonary embolism or arterial dissection. Bilateral basilar consolidations/atelectasis, left significantly more than right. Possible nodular scarring in the right base. Interstitial prominence and groundglass densities in the upper lobes. Postsurgical and posttraumatic changes as noted of the osseous structures. Electronically Signed: Kings Brumfield DO at 15:39 EDT Tel [phone], Service support , KUB X-Ray 10/04/18 01:08 IMPRESSION: An OG tube is seen its tip is below the diaphragm is in good position. Electronically Signed: Flores Fuller, at 4:17 EDT Tel , Service support , Chest X-Ray 10/04/18 01:10 IMPRESSION: Endotracheal tube is seen its tip is 4 cm superior to the katie. An NG tube is seen its tip is below the diaphragm is in good position. Ill-defined airspace disease in the right lung base suggesting compressive atelectasis. There is a small right pleural effusion. Electronically Signed: Flores Fuller, at 4:00 EDT Tel , Service support , Current Medications Acetaminophen (Tylenol Liquid) 650 mg GT Q6H PRN PRN PRN Reason: PAIN Albuterol Sulfate (Ventolin Aerosols) 2.5 mg INHALATION Q2H PRN PRN PRN Reason: dyspnea, wheezing Albuterol/Ipratropium (Duoneb) 3 ml INHALATION Q4HWA.RT [facility] Last Admin: 10/04/18 06:41 Dose: 3 ml Alendronate Sodium (Fosamax) 70 mg PO QWEEK [facility] Aspirin (Aspirin) 325 mg GT DAILY@0800 [facility] Last Admin: 10/04/18 08:17 Dose: 325 mg Atorvastatin Calcium (Lipitor) 80 mg GT QHS JESSICA Atropine Sulfate () 0.5 mg IV X1 PRN PRN Reason: Bradycardia Baclofen (Lioresal) 10 mg GT DAILY [facility] Bupropion HCl (Wellbutrin Xl) 300 mg PO DAILY [facility] Last Admin: 10/03/18 09:23 Dose: 300 mg Chlorhexidine Gluconate () 15 ml PO BID [facility] Chlorhexidine Gluconate () 1 each TOPICAL DAILY [facility] Last Admin: 10/04/18 02:14 Dose: 1 each Clopidogrel Bisulfate (Plavix) 75 mg GT DAILY [facility] Dextrose (D50w Syringe) 0 gm IV X1 PRN; Protocol PRN Reason: Hypoglycemia Docusate Sodium (Colace Syrup) 100 mg GT DAILY [facility] Enoxaparin Sodium (Lovenox) 40 mg SC DAILY@1000 [facility] Last Admin: 10/03/18 09:23 Dose: 40 mg Fluoxetine HCl (Prozac) 40 mg GT BID [facility] Glucagon () 1 mg IM .X1 PRN PRN Reason: Hypoglycemia Levofloxacin (Levaquin Iv) 750 mg in 150 mls @ 100 mls/hr IV Q24 [facility] Last Admin: 10/03/18 09:17 Dose: 100 mls/hr Vancomycin IV Pharmacy to Dose (1 ea/ Sodium Chloride) 500 mls @ 250 mls/hr IV X1 PRN; Protocol PRN Reason: Rx to Dose Vancomycin HCl (Vancomycin) 1,000 mg in 200 mls @ 200 mls/hr IV Q24H [facility] Sodium Chloride () 1,000 mls @ 150 mls/hr IV .Q6H40M [facility] Last Admin: 10/04/18 08:26 Dose: 150 mls/hr Famotidine 20 mg/ Sodium (Chloride) 10 mls @ 300 mls/hr IV Q12 [facility] Fentanyl () 100 mls @ 5 mls/hr IV .Q20H [facility] Last Admin: 10/04/18 01:30 Dose: 5 mls/hr Norepinephrine Bitartrate 8 mg (/ Sodium Chloride) 250 mls @ 9.38 mls/hr CONT INF .[id number] [facility] Last Admin: 10/04/18 05:40 Dose: Not Given Propofol (Diprivan) 1,000 mg in 100 mls @ 4.5 mls/hr CONT INF .Q12H [facility]; Protocol Last Admin: 10/04/18 02:04 Dose: 4.5 mls/hr Potassium Phosphate 30 mm/ (Sodium Chloride) 260 mls @ 42 mls/hr IV X1 ONE Stop: 10/04/18 13:11 Last Admin: 10/04/18 08:17 Dose: 42 mls/hr Levothyroxine Sodium (Synthroid) 88 mcg GT DAILY@0600 [facility] Last Admin: 10/04/18 05:43 Dose: 88 mcg Non-Formulary Medication (Abaloparatide [Tymlos]) 0.04 ml SQ DAILY [facility] Last Admin: 10/03/18 09:24 Dose: 0.04 ml Ondansetron HCl (Zofran) 4 mg IV Q8H PRN PRN PRN Reason: NAUSEA/VOMITING Last Admin: 10/03/18 04:21 Dose: 4 mg Oxycodone HCl (Oxyir) 5 mg GT Q4H PRN PRN PRN Reason: PAIN Sodium Chloride () 5 - 15 ml IV UD PRN PRN Reason: SALINE FLUSH Last Admin: 10/04/18 01:54 Dose: 10 ml Sodium Chloride ([place] Nasal [place]) 2 spray NASAL TID PRN PRN PRN Reason: NASAL DRYNESS Last Admin: 10/03/18 01:16 Dose: 2 spray Medical Necessity - Tobacco Use Smoking Status: Heavy Smoker (>10/day) Tobacco Use: Cigarettes Assessment/Plan All Active Problems Biliary colic (Acute) Community acquired pneumonia (Acute) Previous back surgery (Acute) S/P hysterectomy (Acute) S/P carpal tunnel release (Acute) S/P knee surgery (Acute) S/P correction of deviated nasal septum (Acute) Status post thyroidectomy (Acute) H/O heart artery stent (Acute) Status post amputation of right foot (Acute) Depression (Acute) Anxiety (Acute) Nausea and vomiting (Acute) GERD (gastroesophageal reflux disease) (Acute) Heart disease (Acute) 63-year-old female admitted with a complaint of shortness of breath and p roductive cough 1. acute on chronic hypoxic respiratory failure due to community acquired pneumonia. * Was intubated and sedated yesterday on account of worsening respiratory status. * ABG done showed pH of 7.25 with PCO2 of 66.3 and PO2 of 78. After she was placed on BiPAP, subsequent ABG showed pH of 7.24 with PCO2 of 60.5. She was subsequently intubated. * Currently on IV Levaquin. * Continue breathing treatments. Pulmonology on board. * Of note, CT a done yesterday was negative for PE and showed bilateral basilar consolidation versus atelectasis was more on the left than the right and inte rstitial prominence and groundglass opacities in the upper lobes. * blood cultures were negative; respiratory culture is also negative. Urine culture pending. * 2. Community-acquired pneumonia: As under 1. 3. Septic shock due to community acquired pneumonia * was hypotensive yesterday, which responded to IVF boluses * didnt require pressors. Currently on IV NS ~ 150cc/hr * pulmonology on board 4. Hypertension: Fairly controlled for age. Metoprolol on hold due to hypotension. 5. Hypothyroidism: On Synthroid 6. GERD: On PPI 7. Depression: On fluoxetine and trazodone 8. Chronic back pain and osteoporosis: on baclofen, abaloparatide and calcium carbonate. DVT prophylaxis: Lovenox * Code Visit Inpatient E&M: [id number] [facility] L3
[2018-10-04] MEDS: Docusate Sodium 100 MG/10 ML UDC GT (10:13)
[2018-10-04] MEDS: Baclofen 10 MG Tablet GT (10:13)
[2018-10-04] MEDS: Chlorhexidine 15 ML PO ×2 (10:13→21:51)
[2018-10-04] MEDS: FLUoxetine 20 MG Capsule 40 MG GT ×2 (10:14→21:53)
[2018-10-04] MEDS: Enoxaparin 40 MG/0.4 ML Syringe SC (10:14)
[2018-10-04] MEDS: Clopidogrel Bisulfate 75 MG Tablet GT (10:15)
[2018-10-04] MEDS: levoFLOXacin IV 750 MG/150 ML BAG 100 MG IV (10:20)
[2018-10-04] MEDS: Lactated Ringers 1,000 ML 999 ML IV (11:05)
--- NOTE | 2018-10-04 12:58 | CON.PCM_ITS ---
Problem List (1) Community acquired pneumonia Status: Acute Reason for Consult: pneumonia Consulted by: Dr. Page History of Present Illness: The patient is a 63 year old F who presented 09/30 with SOB, cough, not feeling well. Recent admission to [place] for pneumonia. In ED, hypotensive to 72/40. Started on levaquin here, transferred to [facility] and intubated 10/03, vanc added, repeat cxs sent. Awake on vent, denies SOB, some cough, no abd pain. No fever here since admit. Reports anaphylaxis with PCN in past, but no issues with augmentin or keflex per her report. BP has been dropping with doses of levaquin. ROS limited by intubation. - Medical History Past Medical History (Chronic Problems): Chronic Problems HTN (hypertension) (Chronic) spinal stimulator (Chronic) Spinal stenosis (Chronic) Chronic back pain (Chronic) Hypothyroidism (Chronic) Allergies/Adverse Reactions: Allergies cefaclor [From Ceclor] Allergy (Verified 09/30/18 08:22) Itching clarithromycin Allergy (Verified 09/30/18 08:22) Hives doxycycline Allergy (Verified 09/30/18 08:22) Itching Penicillins Allergy (Verified 09/30/18 08:22) Hives Sulfa (Sulfonamide Antibiotics) Allergy (Verified 09/30/18 08:22) Hives Home Medications: Ambulatory Orders Medication Instructions Recorded Albuterol IH (ProAir) [Proair Hfa] 2 puff INHALATION PRN PRN 06/01/13 Aspirin 325 mg PO DAILY@0800 06/01/13 Atorvastatin Calcium [Lipitor] 80 mg PO QHS 06/01/13 Clopidogrel Bisulfate [Plavix] 75 mg PO DAILY 06/01/13 Diclofenac [Voltaren] 75 mg PO BIDCM 06/01/13 Fluoxetine [Prozac] 40 mg PO BID 06/01/13 Metoprolol Tartrate [Lopressor 25 mg PO BID 06/01/13 (beta jackie)] Theophylline Anhydrous [Brandon-24] 400 mg PO DAILY 06/01/13 alendronate 70 mg tablet 70 mg PO QWEEK 07/20/18 omeprazole 20 mg capsule,delayed 40 mg PO DAILY cap 07/20/18 release tiotropium bromide 2.5 2 puff INHALATION DAILY 07/20/18 mcg/actuation mist for inhalation Abaloparatide [Tymlos] 1.56 ml SQ DAILY 09/30/18 Baclofen 10 mg PO DAILY 09/30/18 Bupropion HCl [Bupropion Xl] 300 mg PO DAILY 09/30/18 Calcium Carbonate [Calcium] 600 mg PO DAILY 09/30/18 Docusate Sodium [Stool Softener] 100 mg PO DAILY 09/30/18 Levothyroxine [Synthroid] 88 mcg PO DAILY 09/30/18 Oxycodone HCl/Acetaminophen 1 - 2 tablet PO Q6H PRN PRN 09/30/18 [Percocet 7.5-325 mg Tablet] Trazodone ER [Oleptro Er] 150 mg PO DAILY 09/30/18 - Social History Tobacco Use: cigarettes Vital Signs Temp Pulse Resp BP Pulse Ox 100.1 F H 65 16 82/48 L 94 10/04/18 07:00 10/04/18 11:35 10/04/18 11:15 10/04/18 11:30 10/04/18 11:15 Oxygen Flow Rate (L/min) 6 Oxygen Delivery Method Mechanical Ventilator Weight: 75.5 kg Body Mass Index (BMI) 33.0 Microbiology Past 72 Hours 10/04/18 04:30 Gram Stain - Final Sputum, Induced/Lukens 10/01/18 22:52 Gram Stain - Final Sputum, Expectorated/Coughed Respiratory Culture - Final Mixed normal respiratory gera. No Streptococcus pneumoniae, beta-hemolytic Streptococcus or Staphylococcus aureus isolated. 09/30/18 08:20 Blood Culture - Preliminary Blood Culture (Wb) - Anticubital Left No growth in 48 hours. 09/30/18 09:30 Blood Culture - Preliminary Blood Culture (Wb) #2 - Anticubital Left No growth in 48 hours. Laboratory Tests Past 24 Hrs 10/03/18 10/04/18 10/04/18 23:37 01:01 04:33 WBC RBC Hgb Hct MCV MCH MCHC RDW RDW Differential Plt Count MPV Immature Gran % (Auto) Neut % (Auto) Lymph % (Auto) [place] % (Auto) Eos % (Auto) Baso % (Auto) Absolute Neuts (auto) Absolute Lymphs (auto) Total Counted Specimen Type ART ART ART Sample Site L Radial L Radial L Radial pH 7.25 L 7.24 L 7.41 Bicarbonate Actual 29.3 H 29.1 H 27.3 H POC Total CO2 31 31 29 Base Excess 2 2 3 H O2 Saturation 93 L 94 L 99 O2 % 60 80 ABG pCO2 66.3 H 68.5 H* 42.9 ABG pO2 78 85 165 H Luke Test POS POS POS Respiration Rate 15 16 O2 Delivery Device Nasal Can Bi / C PAP Vent Liter Flow 6.0 Minute Volume 7.00 Vent Mode A-C Tidal Volume 450 POC PEEP 5 EPAP 10 IPAP 20 Blood Gas Notified Whom ICU MD HOSP MD HOSP MD Blood Gas Notified Time 2330 54 430 Sodium Potassium Chloride Carbon Dioxide Anion Gap BUN Creatinine Estim Creat Clear Calc Est GFR (MDRD) Af Amer Est GFR (MDRD) Non-Af BUN/Creatinine Ratio Glucose Calcium Phosphorus Magnesium Total Creatine Kinase Triglycerides 10/04/18 10/04/18 04:45 04:45 WBC 12.1 H RBC 3.27 L Hgb 9.2 L Hct 31.3 L MCV 95.7 MCH 28.1 MCHC 29.4 L RDW 16.8 H RDW Differential 56.2 H Plt Count 439 MPV 9.2 Immature Gran % (Auto) 0.200 Neut % (Auto) 71.8 H Lymph % (Auto) 19.6 [place] % (Auto) 6.9 Eos % (Auto) 1.4 Baso % (Auto) 0.1 Absolute Neuts (auto) 8.7 H Absolute Lymphs (auto) 2.37 Total Counted Not Reportable Specimen Type Sample Site pH Bicarbonate Actual POC Total CO2 Base Excess O2 Saturation O2 % ABG pCO2 ABG pO2 Luke Test Respiration Rate O2 Delivery Device Liter Flow Minute Volume Vent Mode Tidal Volume POC PEEP EPAP IPAP Blood Gas Notified Whom Blood Gas Notified Time Sodium 148 H Potassium 4.0 Chloride 112 H Carbon Dioxide 30.0 Anion Gap 6 BUN 10 Creatinine 0.68 Estim Creat Clear Calc 100.93 Est GFR (MDRD) Af Amer 113 Est GFR (MDRD) Non-Af 93 BUN/Creatinine Ratio 14.7 Glucose 77 Calcium 8.1 L Phosphorus 1.8 L Magnesium 1.6 Total Creatine Kinase 65 Triglycerides 179 - Other Studies Radiology: [] reviewed Other Studies: [] Route of nutrition/ use of supplements: [] Nutritional Intake: [] IV Site: [] Dolan Catheter: [] - Physical Exam General: Alert, Cooperative, No apparent distress HEENT: Atraumatic, PERRLA, EOMI Neck: Supple, No Nodes Lungs: Diminished Cardiovascular: Regular rate, Regular Rhythm, No murmurs Abdomen: Soft, Non Tender, Non-Distended Extremities: Edema - mild Skin: No rashes IV Site: Peripheral Musculoskeletal: No Tenderness to Palpation of Joints or Extremities Neurological: Cranial nerves II-XII grossly intact - Assessment/Plan Antibiotics: [] Assessment/Plan: [] Active and Suspected Problems Community acquired pneumonia (Acute) CAP with acute resp failure and hypotension - MRSA nasal screen neg. Sputum cx with GPC and wbc on gram stain, but cx neg. Repeat cx sent of purulent secretions s/p intubation. She reports tolerating augmentin and keflex with no issue in the past. Will stop vanc; low suspicion for MRSA. Will change levaquin which seems to be causing hypotension, and will start cefepime while repeat cx pending. Will follow, thank you, d/w Dr. Page and nursing.
[2018-10-04] MEDS: buPROPion 75 MG Tablet GT ×2 (13:32→17:59)
[2018-10-04] MEDS: Vital AF 1.2 Cal Liquid 1,000 ML 60 ML GT (13:33)
--- NOTE | 2018-10-04 20:53 | NURSING ---
White metal ring was removed from left ring finger and locked in med drawer.
[2018-10-04] MEDS: Atorvastatin Calcium 80 MG Tablet GT (21:52)
[2018-10-05] VITALS (38 sets, daily range): BP systolic 91–168; BP diastolic 48–110; PULSE 59–104; RESP 12–25; TEMP 36.2–37.9; O2SAT 88–97
[2018-10-05] MEDS: buPROPion 75 MG Tablet GT ×2 (00:08→05:07)
[2018-10-05] MEDS: fentaNYL drip 100 ML 5 MCG IV (02:15)
[2018-10-05 03:11] LABS: Absolute Lymphocyte Count 2.01 X10^3/ul (0.83-4.51); Absolute Neutrophil Count 4.7 X10^3/uL (2.0-7.7); Basophil# 0.02 X10^3/uL; Basophil% 0.3 % (0-1); Eosinophils% 1.3 % (0-5); Hemoglobin 8.9 g/dl (12.0-15.0); Lymphocyte # 2.01 X10^3/ul (4.0); Lymphocyte % 26.4 % (19-41); Mean Corp Hgb Conc 30.7 g/gl (32-36); Mean Corpuscular Hgb 28.3 pg (27.0-32.0); Mean Corpuscular Volume 92.1 fL (81-99); Mean Platelet Vol. 9.4 fl (6.2-12.0); Monocyte# 0.74 X10^3/uL; Monocyte% 9.7 % (0-10); Neutrophil # 4.72 X10^3/uL (2.7-7.7); Neutrophil % 62.2 % (47-70); POSITIVE COUNT NO; POSITIVE DIFFERENTIAL NO; POSITIVE MORPHOLOGY NO; Platelet Count 400 K/mm3 (150-450); RBC Distribution Width CV 16.9 % (11.6-14.6); RBC Distribution Width SD 55.2 fl (35.1-43.9); Red Blood Count 3.15 M/mm3 (4.2-5.4); White Blood Count 7.6 K/mm3 (4.4-11.0)
[2018-10-05 03:16] LABS: International Normalized Ratio 1.1
[2018-10-05 03:17] LABS: Partial Thromboplast Time 31.2 Seconds (24.1-36.2)
[2018-10-05 03:32] LABS: Anion Gap 9 (5-15); BUN 10 mg/dL (7-18); BUN/Creat Ratio 15.9 RATIO (10-20); Calcium,Total 7.9 mg/dL (8.5-10.1); Chloride 110 mmol/L (98-107); Creatinine, Serum 0.63 mg/dL (0.55-1.02); EST Glomerular Filtration Rate 102 mL/min (>60); Est Glom Filt Rate - Afr Amer 123 mL/min (>60); Estimated Creatinine Clearance 108.94 ml/min; Glucose 102 mg/dL (74-106); Potassium 3.7 mmol/L (3.5-5.1); Sodium Level 146 mmol/L (136-145)
[2018-10-05] MEDS: 0.9% NaCl Peripheral Flush Adult/Peds IV (04:08)
[2018-10-05] MEDS: Levothyroxine 88 MCG Tablet GT (05:07)
--- NOTE | 2018-10-05 05:55 | RAD_ITS ---
STUDY: X-RAY CHEST REASON FOR EXAM: Female, 63 years old. Short of breath, dyspnea, intubated TECHNIQUE: Single AP portable view of the chest. COMPARISON: 10/04/2018. CT chest 10/03/2018. FINDINGS: Endotracheal tube tip 3.9 cm superior to the katie. The enteric tube courses inferior to the left diaphragm, its tip is not included or visualized. Stable volume loss in the right hemithorax with shift of heart, mediastinum and trachea to the right. Atelectatic changes in the right medial lung base, elevation of the right hemidiaphragm, decreased airspace opacifications superior to the right diaphragm. Probable minor atelectasis left base with flattening of the left diaphragm. Improved aeration since prior exam. There is no demonstrated pleural abnormality. Normal size heart. Normal mediastinum and gage. Normal visualized pulmonary arteries. Normal visualized aortic arch and descending thoracic aorta. Status post thoracolumbar fusion. Normal visualized ribs, clavicles, and shoulders. There is no demonstrated abnormality of the visualized soft tissue structures of the upper abdomen. RAD/Chest 1 View (Portable) IMPRESSION: Overall improved aeration with persistent volume loss in the right hemithorax. The lines are in adequate position. Dense opacification posterior medial left base on CT is not appreciated. Electronically Signed: Shruthi Miguel MD at 5:44 EDT , Service support ,
[2018-10-05 06:06] LABS: Allen Test POS; Base Excess 2 mmol/L (-2 to +2); Bicarbonate 26.1 mmol/L (22-26); Blood Gas Specimen Type ART; FI02 40; Mode CPAP PS; O2 Delivery Device Vent; PEEP 5; PO2 75 mmHG (75-100); PS 5; SITE L Radial; SO2 95 % (95-99); Time Given 552; Total Carbon Dioxide 27 mmol/L; pCO2 39.8 mmHg (35-45); pH 7.43 (7.35-7.45)
[2018-10-05] MEDS: Ipratropium/Albuterol Sulfate 3 ML AMPUL.NEB INHALATION ×4 (06:43→19:28)
--- NOTE | 2018-10-05 09:35 | PCM.PN.HOSP ---
Patient Problems: Active and Suspected Problems Community acquired pneumonia (Acute) Subjective: Patient seen and examined. She was successfully extubated early this morning. Shortness of breath has improved. She denies any fever chills, palpitations or dizziness, chest pain, diarrhea vomiting. Review of systems otherwise negative. She is on 3 L of oxygen. Vitals/I&O's: Vital Signs Temp Pulse Resp BP Pulse Ox 99.8 F H 73 18 151/73 H 91 10/05/18 07:00 10/05/18 08:00 10/05/18 07:00 10/05/18 07:00 10/05/18 07:00 Oxygen Flow Rate (L/min) 3 Oxygen Delivery Method Nasal Cannula Weight: 167 lb 8.821 oz Body Mass Index (BMI) 33.0 Intake and Output for Last 24 Hours 10/03/18 10/04/18 10/05/18 23:59 23:59 23:59 Intake Total 5359 / 5359 5308.4 / 5308.4 394.9 / 394.9 Output Total 2550 / 2550 550 / 550 Balance 5359 / 5359 2758.4 / 2758.4 -155.1 / -155.1 General: Alert, Oriented x3, Cooperative, No apparent distress HEENT: Atraumatic, PERRLA, EOMI, Normocephalic Oral: Dry Mucosa Neck: Supple, No JVD, Negative Carotid Bruits Lungs: - - diminished breath sounds bibasally, no wheezes or crackles. on 3L of oxygen Cardiovascular: Regular rate, Regular Rhythm, Normal S1, Normal S2, No murmurs Abdomen: Bowel Sounds Present, Soft, Non Tender, Non-Distended Extremities: No clubbing, No cyanosis, No edema, Capillary Refill Less than 3 Seconds, right LE BKA Skin: No rashes, No breakdown Musculoskeletal: No Tenderness to Palpation of Joints or Extremities Lymphatic: No Cervical, Supraclavicular, or Inguinal Adenopathy Neurological: Cranial nerves II-XII grossly intact, Neuro grossly intact, Motor Exam 5/5 strength throughout Psych/Mental Status: Normal Affect, Appropriate, Alert and oriented to time, place, person, mood and affect Microbiology Past 72 Hours 10/04/18 04:30 Sputum, Induced/Lukens Gram Stain - Final 10/01/18 22:52 Sputum, Expectorated/Coughed Gram Stain - Final 10/01/18 22:52 Sputum, Expectorated/Coughed Respiratory Culture - Final Mixed normal respiratory gera. No Streptococcus pneumoniae, beta-hemolytic Streptococcus or Staphylococcus aureus isolated. 09/30/18 08:20 Blood Culture (Wb) - Anticubital Left Blood Culture - Preliminary No growth in 48 hours. 09/30/18 09:30 Blood Culture (Wb) #2 - Anticubital Left Blood Culture - Preliminary No growth in 48 hours. Laboratory Results 10/05/18 03:00: WBC 7.6, RBC 3.15 L, Hgb 8.9 L, Hct 29.0 L, MCV 92.1, MCH 28.3, MCHC 30.7 L, RDW 16.9 H, RDW Differential 55.2 H, Plt Count 400, MPV 9.4, Immature Gran % (Auto) 0.100, Neut % (Auto) 62.2, Lymph % (Auto) 26.4, [place] % (Auto) 9.7, Eos % (Auto) 1.3, Baso % (Auto) 0.3, Absolute Neuts (auto) 4.7, Absolute Lymphs (auto) 2.01, Total Counted Not Reportable 10/05/18 03:00: PT 14.0, INR 1.1, APTT 31.2 10/05/18 03:00: Sodium 146 H, Potassium 3.7, Chloride 110 H, Carbon Dioxide 27.0, Anion Gap 9, BUN 10, Creatinine 0.63, Estim Creat Clear Calc 108.94, Est GFR (MDRD) Af Amer 123, Est GFR (MDRD) Non-Af 102, BUN/Creatinine Ratio 15.9, Glucose 102, Calcium 7.9 L 10/05/18 06:00: Specimen Type ART, Sample Site L Radial, pH 7.43, Bicarbonate Actual 26.1 H, POC Total CO2 27, Base Excess 2, O2 Saturation 95, O2 % 40, ABG pCO2 39.8, ABG pO2 75, Luke Test POS, O2 Delivery Device Vent, Vent Mode CPAP PS, POC PEEP 5, POC Pressure Suppt 5, Blood Gas Notified Whom ICU MD, Blood Gas Notified Time 552 Current Medications Acetaminophen (Tylenol) 650 mg PO Q6H PRN PRN PRN Reason: PAIN Albuterol Sulfate (Ventolin Aerosols) 2.5 mg INHALATION Q2H PRN PRN PRN Reason: dyspnea, wheezing Albuterol/Ipratropium (Duoneb) 3 ml INHALATION Q4HWA.RT [facility] Last Admin: 10/05/18 06:43 Dose: 3 ml Alendronate Sodium (Fosamax) 70 mg PO QWEEK [facility] Aspirin (Aspirin) 325 mg PO X1 ONE Stop: 10/05/18 10:01 Aspirin (Aspirin) 325 mg PO DAILY@0800 [facility] Atorvastatin Calcium (Lipitor) 80 mg PO QHS [facility] Atropine Sulfate () 0.5 mg IV X1 PRN PRN Reason: Bradycardia Baclofen (Lioresal) 10 mg PO DAILY [facility] Bupropion HCl (Wellbutrin Xl) 300 mg PO DAILY [facility] Chlorhexidine Gluconate () 1 each TOPICAL DAILY [facility] Last Admin: 10/04/18 02:14 Dose: 1 each Clopidogrel Bisulfate (Plavix) 75 mg PO DAILY [facility] Dextrose (D50w Syringe) 0 gm IV X1 PRN; Protocol PRN Reason: Hypoglycemia Docusate Sodium (Colace Syrup) 100 mg PO DAILY [facility] Enoxaparin Sodium (Lovenox) 40 mg SC DAILY@1000 [facility] Last Admin: 10/04/18 10:14 Dose: 40 mg Fluoxetine HCl (Prozac) 40 mg PO BID [facility] Glucagon () 1 mg IM .X1 PRN PRN Reason: Hypoglycemia Cefepime HCl 2 gm/ Sodium (Chloride) 100 mls @ 200 mls/hr IV Q12 [facility] Levothyroxine Sodium (Synthroid) 88 mcg PO DAILY@0600 [facility] Non-Formulary Medication (Abaloparatide [Tymlos]) 0.04 ml SQ DAILY [facility] Last Admin: 10/04/18 10:15 Dose: 0.04 ml Ondansetron HCl (Zofran) 4 mg IV Q8H PRN PRN PRN Reason: NAUSEA/VOMITING Last Admin: 10/03/18 04:21 Dose: 4 mg Oxycodone HCl (Oxyir) 5 mg PO Q4H PRN PRN PRN Reason: SEVERE PAIN (6-10/10) Pantoprazole Sodium (Protonix) 40 mg PO DAILY [facility] Sodium Chloride () 5 - 15 ml IV UD PRN PRN Reason: SALINE FLUSH Last Admin: 10/05/18 04:08 Dose: 10 ml Sodium Chloride ([place] Nasal [place]) 2 spray NASAL TID PRN PRN PRN Reason: NASAL DRYNESS Last Admin: 10/03/18 01:16 Dose: 2 spray Medical Necessity - Tobacco Use Smoking Status: Heavy Smoker (>10/day) Tobacco Use: Cigarettes Assessment/Plan All Active Problems Biliary colic (Acute) Community acquired pneumonia (Acute) Previous back surgery (Acute) S/P hysterectomy (Acute) S/P carpal tunnel release (Acute) S/P knee surgery (Acute) S/P correction of deviated nasal septum (Acute) Status post thyroidectomy (Acute) H/O heart artery stent (Acute) Status post amputation of right foot (Acute) Depression (Acute) Anxiety (Acute) Nausea and vomiting (Acute) GERD (gastroesophageal reflux disease) (Acute) Heart disease (Acute) 63-year-old female admitted with a complaint of shortness of breath and productive cough 1. acute on chronic hypoxic respiratory failure due to community acquired pneumonia. successfully extubated today, and now on 3L of oxygen still has a low grade fever, and was 99.8F this morning on IV cefepime. ID on board on breathing treatments; blood and respiratory cultures were negative. pulmonology on board; repeat sputum cultures pending. Sputum Gram stain showed 2+ white blood cells and 1+ gram-positive cocci. Chest x-ray today showed overall improved aeration with persistent volume loss in right hemithorax. Dense opacification and posterior medial left base on CT not appreciated. 2. Community-acquired pneumonia: As under 1. 3. Septic shock due to community acquired pneumonia was hypotensive yesterday, which responded to IVF boluses Hypotension has resolved with IV fluid. pulmonology on board 4. Hypertension: Metoprolol on hold due to hypotension. 5. Hypothyroidism: On Synthroid 6. GERD: On PPI 7. Depression: On fluoxetine and trazodone 8. Chronic back pain and osteoporosis: on baclofen, abaloparatide and calcium carbonate. DVT prophylaxis: Lovenox Code Visit Inpatient E&M: 68100 [facility] H[facility] L3
--- NOTE | 2018-10-05 09:45 | PN_ITS ---
Patient Problems: Active and Suspected Problems Community acquired pneumonia (Acute) Subjective: Patient seen and examined. She was successfully extubated early this morning. Shortness of breath has improved. She denies any fever chills, palpitations or dizziness, chest pain, diarrhea vomiting. Review of systems otherwise negative. She is on 3 L of oxygen. Vitals/I&O's: Vital Signs Temp Pulse Resp BP Pulse Ox 99.8 F H 73 18 151/73 H 91 10/05/18 07:00 10/05/18 08:00 10/05/18 07:00 10/05/18 07:00 10/05/18 07:00 Oxygen Flow Rate (L/min) 3 Oxygen Delivery Method Nasal Cannula Weight: 167 lb 8.821 oz Body Mass Index (BMI) 33.0 Intake and Output for Last 24 Hours 10/03/18 10/04/18 10/05/18 23:59 23:59 23:59 Intake Total 5359 / 5359 5308.4 / 5308.4 394.9 / 394.9 Output Total 2550 / 2550 550 / 550 Balance 5359 / 5359 2758.4 / 2758.4 -155.1 / -155.1 General: Alert, Oriented x3, Cooperative, No apparent distress HEENT: Atraumatic, PERRLA, EOMI, Normocephalic Oral: Dry Mucosa Neck: Supple, No JVD, Negative Carotid Bruits Lungs: - - diminished breath sounds bibasally, no wheezes or crackles. on 3L of oxygen Cardiovascular: Regular rate, Regular Rhythm, Normal S1, Normal S2, No murmurs Abdomen: Bowel Sounds Present, Soft, Non Tender, Non-Distended Extremities: No clubbing, No cyanosis, No edema, Capillary Refill Less than 3 Seconds, right LE BKA Skin: No rashes, No breakdown Musculoskeletal: No Tenderness to Palpation of Joints or Extremities Lymphatic: No Cervical, Supraclavicular, or Inguinal Adenopathy Neurological: Cranial nerves II-XII grossly intact, Neuro grossly intact, Motor Exam 5/5 strength throughout Psych/Mental Status: Normal Affect, Appropriate, Alert and oriented to time, place, person, mood and affect Microbiology Past 72 Hours 10/04/18 04:30 Sputum, Induced/Lukens Gram Stain - Final 10/01/18 22:52 Sputum, Expectorated/Coughed Gram Stain - Final 10/01/18 22:52 Sputum, Expectorated/Coughed Respiratory Culture - Final Mixed normal respiratory gera. No Streptococcus pneumoniae, beta-hemolytic Streptococcus or Staphylococcus aureus isolated. 09/30/18 08:20 Blood Culture (Wb) - Anticubital Left Blood Culture - Preliminary No growth in 48 hours. 09/30/18 09:30 Blood Culture (Wb) #2 - Anticubital Left Blood Culture - Preliminary No growth in 48 hours. Laboratory Results 10/05/18 03:00: WBC 7.6, RBC 3.15 L, Hgb 8.9 L, Hct 29.0 L, MCV 92.1, MCH 28.3, MCHC 30.7 L, RDW 16.9 H, RDW Differential 55.2 H, Plt Count 400, MPV 9.4, Immature Gran % (Auto) 0.100, Neut % (Auto) 62.2, Lymph % (Auto) 26.4, [place] % (Auto) 9.7, Eos % (Auto) 1.3, Baso % (Auto) 0.3, Absolute Neuts (auto) 4.7, Absolute Lymphs (auto) 2.01, Total Counted Not Reportable 10/05/18 03:00: PT 14.0, INR 1.1, APTT 31.2 10/05/18 03:00: Sodium 146 H, Potassium 3.7, Chloride 110 H, Carbon Dioxide 27.0, Anion Gap 9, BUN 10, Creatinine 0.63, Estim Creat Clear Calc 108.94, Est GFR (MDRD) Af Amer 123, Est GFR (MDRD) Non-Af 102, BUN/Creatinine Ratio 15.9, Glucose 102, Calcium 7.9 L 10/05/18 06:00: Specimen Type ART, Sample Site L Radial, pH 7.43, Bicarbonate Actual 26.1 H, POC Total CO2 27, Base Excess 2, O2 Saturation 95, O2 % 40, ABG pCO2 39.8, ABG pO2 75, Lkue Test POS, O2 Delivery Device Vent, Vent Mode CPAP PS, POC PEEP 5, POC Pressure Suppt 5, Blood Gas Notified Whom ICU MD, Blood Gas Notified Time 552 Current Medications Acetaminophen (Tylenol) 650 mg PO Q6H PRN PRN PRN Reason: PAIN Albuterol Sulfate (Ventolin Aerosols) 2.5 mg INHALATION Q2H PRN PRN PRN Reason: dyspnea, wheezing Albuterol/Ipratropium (Duoneb) 3 ml INHALATION Q4HWA.RT [facility] Last Admin: 10/05/18 06:43 Dose: 3 ml Alendronate Sodium (Fosamax) 70 mg PO QWEEK [facility] Aspirin (Aspirin) 325 mg PO X1 ONE Stop: 10/05/18 10:01 Aspirin (Aspirin) 325 mg PO DAILY@0800 [facility] Atorvastatin Calcium (Lipitor) 80 mg PO QHS [facility] Atropine Sulfate () 0.5 mg IV X1 PRN PRN Reason: Bradycardia Baclofen (Lioresal) 10 mg PO DAILY [facility] Bupropion HCl (Wellbutrin Xl) 300 mg PO DAILY [facility] Chlorhexidine Gluconate () 1 each TOPICAL DAILY [facility] Last Admin: 10/04/18 02:14 Dose: 1 each Clopidogrel Bisulfate (Plavix) 75 mg PO DAILY [facility] Dextrose (D50w Syringe) 0 gm IV X1 PRN; Protocol PRN Reason: Hypoglycemia Docusate Sodium (Colace Syrup) 100 mg PO DAILY [facility] Enoxaparin Sodium (Lovenox) 40 mg SC DAILY@1000 [facility] Last Admin: 10/04/18 10:14 Dose: 40 mg Fluoxetine HCl (Prozac) 40 mg PO BID [facility] Glucagon () 1 mg IM .X1 PRN PRN Reason: Hypoglycemia Cefepime HCl 2 gm/ Sodium (Chloride) 100 mls @ 200 mls/hr IV Q12 [facility] Levothyroxine Sodium (Synthroid) 88 mcg PO DAILY@0600 [facility] Non-Formulary Medication (Abaloparatide [Tymlos]) 0.04 ml SQ DAILY [facility] Last Admin: 10/04/18 10:15 Dose: 0.04 ml Ondansetron HCl (Zofran) 4 mg IV Q8H PRN PRN PRN Reason: NAUSEA/VOMITING Last Admin: 10/03/18 04:21 Dose: 4 mg Oxycodone HCl (Oxyir) 5 mg PO Q4H PRN PRN PRN Reason: SEVERE PAIN (6-10/10) Pantoprazole Sodium (Protonix) 40 mg PO DAILY [facility] Sodium Chloride () 5 - 15 ml IV UD PRN PRN Reason: SALINE FLUSH Last Admin: 10/05/18 04:08 Dose: 10 ml Sodium Chloride ([place] Nasal [place]) 2 spray NASAL TID PRN PRN PRN Reason: NASAL DRYNESS Last Admin: 10/03/18 01:16 Dose: 2 spray Medical Necessity - Tobacco Use Smoking Status: Heavy Smoker (>10/day) Tobacco Use: Cigarettes Assessment/Plan All Active Problems Biliary colic (Acute) Community acquired pneumonia (Acute) Previous back surgery (Acute) S/P hysterectomy (Acute) S/P carpal tunnel release (Acute) S/P knee surgery (Acute) S/P correction of deviated nasal septum (Acute) Status post thyroidectomy (Acute) H/O heart artery stent (Acute) Status post amputation of right foot (Acute) Depression (Acute) Anxiety (Acute) Nausea and vomiting (Acute) GERD (gastroesophageal reflux disease) (Acute) Heart disease (Acute) 63-year-old female admitted with a complaint of shortness of breath and productive cough 1. acute on chronic hypoxic respiratory failure due to community acquired pneumonia. * successfully extubated today, and now on 3L of oxygen * still has a low grade fever, and was 99.8F this morning * on IV cefepime. ID on board * on breathing treatments; blood and respiratory cultures were negative. * pulmonology on board; repeat sputum cultures pending. Sputum Gram stain showed 2+ white blood cells and 1+ gram-positive cocci. * Chest x-ray today showed overall improved aeration with persistent volume loss in right hemithorax. Dense opacification and posterior medial left base on CT not appreciated. * 2. Community-acquired pneumonia: As under 1. 3. Septic shock due to community acquired pneumonia * was hypotensive yesterday, which responded to IVF boluses * Hypotension has resolved with IV fluid. * pulmonology on board * 4. Hypertension: Metoprolol on hold due to hypotension. 5. Hypothyroidism: On Synthroid 6. GERD: On PPI 7. Depression: On fluoxetine and trazodone 8. Chronic back pain and osteoporosis: on baclofen, abaloparatide and calcium carbonate. DVT prophylaxis: Lovenox * Code Visit Inpatient E&M: 54721 [facility] Hosp L3
--- NOTE | 2018-10-05 09:56 | PCM.PN.INT ---
Subjective: Patient did well overnight. 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 Patient had coagulation studies that were within normal limits. Patient was able to have a spontaneous breathing trial this morning and was successfully extubated under my direct supervision. Patient does have chronic back pain. Patient also reports that she has not been using a prosthesis secondary to stump edema. General: Alert, Cooperative, No apparent distress, - - No conversational dyspnea. Obese. HEENT: Atraumatic, PERRLA, EOMI, Normocephalic, - - No scleral icterus or injection noted. Oral: Moist Mucosa, No Gingival or Mucosal Lesions/ Ulcerations Neck: Supple, No JVD, No Nodes, Trachea Midline Lungs: No rhonchi, No wheeze, No rales, Diminished, - - Symmetric expansion. No dullness to percussion. Cardiovascular: Regular rate, Regular Rhythm, Normal S1, Normal S2, No murmurs, No rub noted, No Gallop Abdomen: Bowel Sounds Present, Soft, Non Tender, Non-Distended, Obese Extremities: No clubbing, No cyanosis, Edema - Trace Skin: - - No change from previous Musculoskeletal: No Tenderness to Palpation of Joints or Extremities Lymphatic: No Cervical, Supraclavicular, or Inguinal Adenopathy Neurological: Cranial nerves II-XII grossly intact, Neuro grossly intact, Motor Exam 5/5 strength throughout Psych/Mental Status: Appropriate, Flat Affect Vital Signs Temp Pulse Resp BP Pulse Ox 37.7 C H 73 18 151/73 H 91 10/05/18 07:00 10/05/18 08:00 10/05/18 07:00 10/05/18 07:00 10/05/18 07:00 Oxygen Flow Rate (L/min) 3 Oxygen Delivery Method Nasal Cannula Weight: 76 kg Body Mass Index (BMI) 33.0 Intake and Output for Last 24 Hours 10/03/18 10/04/18 10/05/18 23:59 23:59 23:59 Intake Total 5359 / 5359 5308.4 / 5308.4 394.9 / 394.9 Output Total 2550 / 2550 550 / 550 Balance 5359 / 5359 2758.4 / 2758.4 -155.1 / -155.1 Labs (Last 48 Hours) 10/03/18 10/03/18 10/04/18 09:40 23:37 01:01 WBC RBC Hgb Hct MCV MCH MCHC RDW RDW Differential Plt Count MPV Immature Gran % (Auto) Neut % (Auto) Lymph % (Auto) [place] % (Auto) Eos % (Auto) Baso % (Auto) Absolute Neuts (auto) Absolute Lymphs (auto) Total Counted PT INR APTT Specimen Type ART ART Sample Site L Radial L Radial pH 7.25 L 7.24 L Bicarbonate Actual 29.3 H 29.1 H POC Total CO2 31 31 Base Excess 2 2 O2 Saturation 93 L 94 L O2 % 60 ABG pCO2 66.3 H 68.5 H* ABG pO2 78 85 Luke Test POS POS Respiration Rate 15 O2 Delivery Device Nasal Can Bi / C PAP Liter Flow 6.0 Minute Volume Vent Mode Tidal Volume POC PEEP POC Pressure Suppt EPAP 10 IPAP 20 Blood Gas Notified Whom ICU MD [facility]OS[facility] [place] Blood Gas Notified Time 2330 54 Sodium Potassium Chloride Carbon Dioxide Anion Gap BUN Creatinine Estim Creat Clear Calc Est GFR (MDRD) Af Amer Est GFR (MDRD) Non-Af BUN/Creatinine Ratio Glucose Calcium Phosphorus Magnesium Total Creatine Kinase Triglycerides MRSA (PCR) Negative 10/04/18 10/04/18 10/04/18 04:33 04:45 04:45 WBC 12.1 H RBC 3.27 L Hgb 9.2 L Hct 31.3 L MCV 95.7 MCH 28.1 MCHC 29.4 L RDW 16.8 H RDW Differential 56.2 H Plt Count 439 MPV 9.2 Immature Gran % (Auto) 0.200 Neut % (Auto) 71.8 H Lymph % (Auto) 19.6 [place] % (Auto) 6.9 Eos % (Auto) 1.4 Baso % (Auto) 0.1 Absolute Neuts (auto) 8.7 H Absolute Lymphs (auto) 2.37 Total Counted Not Reportable PT INR APTT Specimen Type ART Sample Site L Radial pH 7.41 Bicarbonate Actual 27.3 H POC Total CO2 29 Base Excess 3 H O2 Saturation 99 O2 % 80 ABG pCO2 42.9 ABG pO2 165 H Luke Test POS Respiration Rate 16 O2 Delivery Device Vent Liter Flow Minute Volume 7.00 Vent Mode A-C Tidal Volume 450 POC PEEP 5 POC Pressure Suppt EPAP IPAP Blood Gas Notified Whom HOSP Blood Gas Notified Time 430 Sodium 148 H Potassium 4.0 Chloride 112 H Carbon Dioxide 30.0 Anion Gap 6 BUN 10 Creatinine 0.68 Estim Creat Clear Calc 100.93 Est GFR (MDRD) Af Amer 113 Est GFR (MDRD) Non-Af 93 BUN/Creatinine Ratio 14.7 Glucose 77 Calcium 8.1 L Phosphorus 1.8 L Magnesium 1.6 Total Creatine Kinase 65 Triglycerides 179 MRSA (PCR) 10/05/18 10/05/18 10/05/18 03:00 03:00 03:00 WBC 7.6 RBC 3.15 L Hgb 8.9 L Hct 29.0 L MCV 92.1 MCH 28.3 MCHC 30.7 L RDW 16.9 H RDW Differential 55.2 H Plt Count 400 MPV 9.4 Immature Gran % (Auto) 0.100 Neut % (Auto) 62.2 Lymph % (Auto) 26.4 [place] % (Auto) 9.7 Eos % (Auto) 1.3 Baso % (Auto) 0.3 Absolute Neuts (auto) 4.7 Absolute Lymphs (auto) 2.01 Total Counted Not Reportable PT 14.0 INR 1.1 APTT 31.2 Specimen Type Sample Site pH Bicarbonate Actual POC Total CO2 Base Excess O2 Saturation O2 % ABG pCO2 ABG pO2 Luke Test Respiration Rate O2 Delivery Device Liter Flow Minute Volume Vent Mode Tidal Volume POC PEEP POC Pressure Suppt EPAP IPAP Blood Gas Notified Whom Blood Gas Notified Time Sodium 146 H Potassium 3.7 Chloride 110 H Carbon Dioxide 27.0 Anion Gap 9 BUN 10 Creatinine 0.63 Estim Creat Clear Calc 108.94 Est GFR (MDRD) Af Amer 123 Est GFR (MDRD) Non-Af 102 BUN/Creatinine Ratio 15.9 Glucose 102 Calcium 7.9 L Phosphorus Magnesium Total Creatine Kinase Triglycerides MRSA (PCR) 10/05/18 06:00 WBC RBC Hgb Hct MCV MCH MCHC RDW RDW Differential Plt Count MPV Immature Gran % (Auto) Neut % (Auto) Lymph % (Auto) [place] % (Auto) Eos % (Auto) Baso % (Auto) Absolute Neuts (auto) Absolute Lymphs (auto) Total Counted PT INR APTT Specimen Type ART Sample Site L Radial pH 7.43 Bicarbonate Actual 26.1 H POC Total CO2 27 Base Excess 2 O2 Saturation 95 O2 % 40 ABG pCO2 39.8 ABG pO2 75 Luke Test POS Respiration Rate O2 Delivery Device Vent Liter Flow Minute Volume Vent Mode CPAP PS Tidal Volume POC PEEP 5 POC Pressure Suppt 5 EPAP IPAP Blood Gas Notified Whom ICU Blood Gas Notified Time 552 Sodium Potassium Chloride Carbon Dioxide Anion Gap BUN Creatinine Estim Creat Clear Calc Est GFR (MDRD) Af Amer Est GFR (MDRD) Non-Af BUN/Creatinine Ratio Glucose Calcium Phosphorus Magnesium Total Creatine Kinase Triglycerides MRSA (PCR) Microbiology 09/30/18 08:20 Blood Culture (Wb) - Anticubital Left Blood Culture - Final No growth in 5 days. 10/04/18 04:30 Sputum, Induced/Lukens Gram Stain - Final 10/01/18 22:52 Sputum, Expectorated/Coughed Gram Stain - Final 10/01/18 22:52 Sputum, Expectorated/Coughed Respiratory Culture - Final Mixed normal respiratory gera. No Streptococcus pneumoniae, beta-hemolytic Streptococcus or Staphylococcus aureus isolated. Clinical Impression(s) from Imaging Studies Chest X-Ray 10/05/18 05:55 IMPRESSION: Overall improved aeration with persistent volume loss in the right hemithorax. The lines are in adequate position. Dense opacification posterior medial left base on CT is not appreciated. Electronically Signed: Shruthi Miguel MD at 5:44 EDT , Service support , Medical Necessity - Tobacco Use Smoking Status: Heavy Smoker (>10/day) Tobacco Use: Cigarettes Assessment/Plan All Active Problems Biliary colic (Acute) Community acquired pneumonia (Acute) Previous back surgery (Acute) S/P hysterectomy (Acute) S/P carpal tunnel release (Acute) S/P knee surgery (Acute) S/P correction of deviated nasal septum (Acute) Status post thyroidectomy (Acute) H/O heart artery stent (Acute) Status post amputation of right foot (Acute) Depression (Acute) Anxiety (Acute) Nausea and vomiting (Acute) GERD (gastroesophageal reflux disease) (Acute) Heart disease (Acute) RECOMMENDATIONS: 1. Continue antibiotics to complete a 10-day course 2. Transition bronchodilators to while awake 3. Wean supplemental oxygen to maintain saturations at or above 90%. 4. Initiate p.o. diet, transition medications to p.o. 5. Increase activity as tolerated 6. Initiate home CPAP settings IMPRESSIONS: 1. Acute combined respiratory failure secondary to community-acquired pneumonia Patient did well overnight. Patient's sputum culture is still pending, but responds to cefepime well. Anticipate completing a 10-day course, but infectious disease is following. If patient starts to have more difficulty with wheezing. 2. Personal history of tobacco dependency Smoking cessation counseling was provided. The patient undoubtedly will need to be followed in the pulmonary medicine clinic so that baseline PFTs can be obtained to confirm or refute a diagnosis of COPD. 3. History of obstructive sleep apnea Patient reportedly is compliant with RAUL therapy as an outpatient. Patient's to bring in home CPAP machine to use with sleep 4. Hypertension/hypothyroidism/GERD/depression/anxiety/chronic pain syndrome Complicates care, management, recovery and prognosis. Continue home medications as indicated. TIME: 40 minutes critical care time spent addressing patient's acute combined respiratory failure, hypotension, review of all data and collaboration with care team. (5:45 AM to 6:50 AM) Code Visit [id number]: [id number] Critical care first hour
[2018-10-05] MEDS: Clopidogrel Bisulfate 75 MG Tablet PO (09:59)
[2018-10-05] MEDS: Aspirin 325 MG Tablet PO (09:59)
[2018-10-05] MEDS: FLUoxetine 20 MG Capsule 40 MG PO ×2 (10:00→21:57)
[2018-10-05] MEDS: buPROPion (XL) 300 MG TABLET.XL PO (10:00)
[2018-10-05] MEDS: Enoxaparin 40 MG/0.4 ML Syringe SC (10:00)
[2018-10-05] MEDS: Docusate Sodium 100 MG/10 ML UDC PO (10:01)
[2018-10-05] MEDS: Baclofen 10 MG Tablet PO (10:01)
[2018-10-05] MEDS: Pantoprazole Sodium 40 MG Tablet PO (10:02)
[2018-10-05] MEDS: oxyCODONE 5 MG Tablet PO ×2 (10:06→14:39)
--- NOTE | 2018-10-05 10:17 | PCM.PN.ID ---
Patient Problems: Active and Suspected Problems Community acquired pneumonia (Acute) Subjective: Feeling much better, no SOB, no fever, no n/v/d. - Physical Exam General: Alert, Cooperative, No apparent distress Lungs: Clear to auscultation, Normal air movement Cardiovascular: Regular rate, Regular Rhythm Abdomen: Soft, Non Tender, Non-Distended Skin: No rashes Vital Signs Temp Pulse Resp BP Pulse Ox 99.8 F H 73 18 151/73 H 91 10/05/18 07:00 10/05/18 08:00 10/05/18 07:00 10/05/18 07:00 10/05/18 07:00 Oxygen Flow Rate (L/min) 3 Oxygen Delivery Method Nasal Cannula Weight: 76 kg Body Mass Index (BMI) 33.0 Intake and Output for Last 24 Hours 10/03/18 10/04/18 10/05/18 23:59 23:59 23:59 Intake Total 5359 / 5359 5308.4 / 5308.4 394.9 / 394.9 Output Total 2550 / 2550 550 / 550 Balance 5359 / 5359 2758.4 / 2758.4 -155.1 / -155.1 Microbiology Past 72 Hours 09/30/18 08:20 Blood Culture - Final Blood Culture (Wb) - Anticubital Left No growth in 5 days. 10/04/18 04:30 Gram Stain - Final Sputum, Induced/Lukens 10/01/18 22:52 Gram Stain - Final Sputum, Expectorated/Coughed Respiratory Culture - Final Mixed normal respiratory gera. No Streptococcus pneumoniae, beta-hemolytic Streptococcus or Staphylococcus aureus isolated. 09/30/18 09:30 Blood Culture - Preliminary Blood Culture (Wb) #2 - Anticubital Left No growth in 48 hours. Laboratory Tests Past 24 Hrs 10/05/18 10/05/18 10/05/18 03:00 03:00 03:00 WBC 7.6 RBC 3.15 L Hgb 8.9 L Hct 29.0 L MCV 92.1 MCH 28.3 MCHC 30.7 L RDW 16.9 H RDW Differential 55.2 H Plt Count 400 MPV 9.4 Immature Gran % (Auto) 0.100 Neut % (Auto) 62.2 Lymph % (Auto) 26.4 [place] % (Auto) 9.7 Eos % (Auto) 1.3 Baso % (Auto) 0.3 Absolute Neuts (auto) 4.7 Absolute Lymphs (auto) 2.01 Total Counted Not Reportable PT 14.0 INR 1.1 APTT 31.2 Specimen Type Sample Site pH Bicarbonate Actual POC Total CO2 Base Excess O2 Saturation O2 % ABG pCO2 ABG pO2 Luke Test O2 Delivery Device Vent Mode POC PEEP POC Pressure Suppt Blood Gas Notified Whom Blood Gas Notified Time Sodium 146 H Potassium 3.7 Chloride 110 H Carbon Dioxide 27.0 Anion Gap 9 BUN 10 Creatinine 0.63 Estim Creat Clear Calc 108.94 Est GFR (MDRD) Af Amer 123 Est GFR (MDRD) Non-Af 102 BUN/Creatinine Ratio 15.9 Glucose 102 Calcium 7.9 L 10/05/18 06:00 WBC RBC Hgb Hct MCV MCH MCHC RDW RDW Differential Plt Count MPV Immature Gran % (Auto) Neut % (Auto) Lymph % (Auto) [place] % (Auto) Eos % (Auto) Baso % (Auto) Absolute Neuts (auto) Absolute Lymphs (auto) Total Counted PT INR APTT Specimen Type ART Sample Site L Radial pH 7.43 Bicarbonate Actual 26.1 H POC Total CO2 27 Base Excess 2 O2 Saturation 95 O2 % 40 ABG pCO2 39.8 ABG pO2 75 Luke Test POS O2 Delivery Device Vent Vent Mode CPAP PS POC PEEP 5 POC Pressure Suppt 5 Blood Gas Notified Whom ICU MD Blood Gas Notified Time 552 Sodium Potassium Chloride Carbon Dioxide Anion Gap BUN Creatinine Estim Creat Clear Calc Est GFR (MDRD) Af Amer Est GFR (MDRD) Non-Af BUN/Creatinine Ratio Glucose Calcium Medical Necessity - Tobacco Use Smoking Status: Heavy Smoker (>10/day) Tobacco Use: Cigarettes Route of nutrition/ use of supplements: [] Nutritional Intake: [] IV Site: [] Dolan Catheter: [] - Assessment/Plan Antibiotics: [] Assessment/Plan: [] Active and Suspected Problems Community acquired pneumonia (Acute) CAP with acute resp failure and hypotension - MRSA nasal screen neg. Sputum cx with GPC and wbc on gram stain, but cx neg. Repeat cx sent of purulent secretions s/p intubation. She reports tolerating augmentin and keflex with no issue in the past. Off vent, BP much improved; on cefepime. Will follow
--- NOTE | 2018-10-05 11:51 | CASEMGMT ---
Addendum entered by Harshil Smith 10/05/18 12:09: CM to continue to follow for Increased Home oxygen needs. Pt will need Home Oxygen testing completed prior to discharge. Original Note: DEWAYNE LOPEZ NOTE: To room to talk w/pt and her who is at bedside. PT/OT notes have been reviewed. Discussed discharge planning with pt and . Pt states she wishes to go home and is agreeable to [facility], stating she has no preference of C agency. She states she does not want to go to a SNF. Referral made to [facility] for usp and PT/OT. She states they are not in network with [facility], but she will look into billing through a 3rd green party. She states she will return call to confirm if they are able to accept pt. She was made aware pt will most likely not be discharged for a couple of days. Veronica VILLANUEVA RN, CM
[2018-10-05] MEDS: Albuterol 2.5 MG/3 ML VIAL.NEB. INHALATION (17:46)
[2018-10-05] MEDS: Atorvastatin Calcium 80 MG Tablet PO (21:57)
[2018-10-06] VITALS (33 sets, daily range): BP systolic 86–197; BP diastolic 49–98; PULSE 60–106; RESP 11–22; TEMP 36.1–36.8; O2SAT 90–97
--- NOTE | 2018-10-06 00:50 | CPS ---
ABG results shown to Dr. Goldsmith at the pt bedside.
[2018-10-06 00:51] LABS: Allen Test POS; Base Excess 6 mmol/L (-2 to +2); Bicarbonate 30.7 mmol/L (22-26); Blood Gas Specimen Type ART; O2 Delivery Device Nasal Can; PO2 68 mmHG (75-100); SITE R Radial; SO2 93 % (95-99); Time Given 50; Total Carbon Dioxide 32 mmol/L; pCO2 48.3 mmHg (35-45); pH 7.41 (7.35-7.45)
--- NOTE | 2018-10-06 00:56 | EKG12_ITS ---
Test Reason : OBTUNDED/HTN Blood Pressure : / mmHG Vent. Rate : 084 BPM Atrial Rate : 084 BPM P-R Int : 160 ms QRS Dur : 100 ms QT Int : 424 ms P-R-T Axes : 052 050 075 degrees QTc Int : 501 ms Normal sinus rhythm Nonspecific ST and T wave abnormality Prolonged QT Abnormal ECG When compared with ECG of 01-OCT-2018 10:09, MANUAL COMPARISON REQUIRED, DATA IS UNCONFIRMED Confirmed by MIKE HIRSCH, BIENVENIDO ([id number]), photography editor DHARA VALENZUELA ([id number]) on 10/07/2018 12:02:16 PM Referred By: YAJAIRA Confirmed By:BIENVENIDO MCKEON MD
--- NOTE | 2018-10-06 01:03 | CT_ITS ---
STUDY: CT BRAIN WITHOUT CONTRAST REASON FOR EXAM: Female, 63 years old. Obtunded, elevated blood pressure, decreased level of consciousness, history of hypertension, thyroidectomy RADIATION DOSAGE (If Supplied By Facility): CTDIvol = ( 44.99 ) mGy, DLP = ( 796.11 ) mGycm TECHNIQUE: Transaxial CT imaging of the brain was performed without administration of intravenous contrast material. Individualized dose optimization techniques were used for this CT. COMPARISON: No relevant priors. FINDINGS: Normal soft tissue structures. Normal calvarium. Normal size ventricles and extra-axial spaces for the patient's age. There are a few areas of decreased attenuation within the white matter tracts of the supratentorial brain, consistent with microvascular disease changes. Normal basal ganglia and thalami. Normal brainstem. Normal cerebellum. There is no intracranial hemorrhage. There are no findings of an acute ischemic infarction. Multiple mucosal thickening of the right maxillary sinus, status post right medial antrectomy and partial ethmoidectomy. Minimal fluid in the left sphenoid sinus. The bilateral mastoid air cells are clear. There are postoperative orbital changes. Intracranial arteriosclerosis of the carotid and vertebral arteries. There is proptosis. There is distention of the oral cavity. CT/Brain/Head without Contrast IMPRESSION: Minimal involutional changes. There is no acute intracranial pathology. Other nonacute findings as outlined above. Electronically Signed: Shruthi Miguel MD at 2:30 EDT , Service support ,
--- NOTE | 2018-10-06 01:06 | PCM.PN.BLA ---
Progress Note Notified by nursing staff that patient is not responding to sternal rub; and patient has no gag reflex. Patient is spontaneous opening of the eyes. Also patient with decreased oxygen saturation for which nasal cannula was switched to home CPAP. Patient was examined at bedside. Patient noted to have a pupillary reflex and gag reflex. Lungs were clear to auscultate. S1-S2 present no murmur gallop or rub. Patient with right leg amputation. Acute encephalopathy with no clear cause. Accu-Chek at bedside was unremarkable. We will get CBC BMP and ammonia level. CT of the head. Will get EKG and troponin level. ABG showed hypoxia. Respiratory therapist to put patient on REFLOW OPERATOR with a low pressure of 10. Patient was recently extubated. At this point I do not think patient needs emergent intubation.
--- NOTE | 2018-10-06 01:09 | PN_ITS ---
Progress Note Notified by nursing staff that patient is not responding to sternal rub; and patient has no gag reflex. Patient is spontaneous opening of the eyes. Also patient with decreased oxygen saturation for which nasal cannula was switched to home CPAP. Patient was examined at bedside. Patient noted to have a pupillary reflex and gag reflex. Lungs were clear to auscultate. S1-S2 present no murmur gallop or rub. Patient with right leg amputation. Acute encephalopathy with no clear cause. Accu-Chek at bedside was unremarkable. We will get CBC BMP and ammonia level. CT of the head. Will get EKG and troponin level. ABG showed hypoxia. Respiratory therapist to put patient on IT COORDINATOR with a low pressure of 10. Patient was recently extubated. At this point I do not think patient needs emergent intubation.
[2018-10-06 01:22] LABS: Absolute Lymphocyte Count 2.11 X10^3/ul (0.83-4.51); Basophil# 0.03 X10^3/uL; Basophil% 0.2 % (0-1); Eosinophil# 0.23 X10^3/uL; Eosinophils% 1.6 % (0-5); Hematocrit 32.8 % (37-47); Hemoglobin 10.1 g/dl (12.0-15.0); Lymphocyte # 2.11 X10^3/ul (4.0); Lymphocyte % 14.3 % (19-41); Mean Corp Hgb Conc 30.8 g/gl (32-36); Mean Corpuscular Hgb 28.4 pg (27.0-32.0); Mean Corpuscular Volume 92.1 fL (81-99); Mean Platelet Vol. 9.5 fl (6.2-12.0); Monocyte# 1.37 X10^3/uL; Monocyte% 9.3 % (0-10); Neutrophil % 74.3 % (47-70); POSITIVE COUNT NO; POSITIVE DIFFERENTIAL NO; POSITIVE MORPHOLOGY NO; Platelet Count 454 K/mm3 (150-450); RBC Distribution Width CV 16.9 % (11.6-14.6); RBC Distribution Width SD 55.4 fl (35.1-43.9); Red Blood Count 3.56 M/mm3 (4.2-5.4); White Blood Count 14.8 K/mm3 (4.4-11.0)
[2018-10-06 01:31] LABS: Bedside Glucose 141 mg/dL (70-110)
[2018-10-06 01:52] LABS: Anion Gap 5 (5-15); BUN 6 mg/dL (7-18); Calcium,Total 8.5 mg/dL (8.5-10.1); Chloride 109 mmol/L (98-107); Creatinine, Serum 0.86 mg/dL (0.55-1.02); EST Glomerular Filtration Rate 71 mL/min (>60); Est Glom Filt Rate - Afr Amer 86 mL/min (>60); Estimated Creatinine Clearance 80.33 ml/min; Glucose 129 mg/dL (74-106); Potassium 3.1 mmol/L (3.5-5.1); Sodium Level 144 mmol/L (136-145)
[2018-10-06] MEDS: Potassium Chloride 10mEq/100mL 10 MEQ/100 ML IV.SOLN. 100 MEQ IV BOLUS ×4 (03:34→07:08)
--- NOTE | 2018-10-06 03:48 | NURSING ---
0300: patient on AVAPS, alert and oriented, cooperative and pleasant. patient instructed that the bipap mask needs to remain in place until morning d/t being obtunded earlier in the night. patient verbalized understanding. 0330: patient pulled bipap mask off and refused to have it put back on. Patient educated on importance and reminded patient that she had become obtunded earlier in the shift and required the bipap. She stated that she doesn't want to wear it. Patient placed on 3L NC. Respiratory therapist, Kelle, notified.
[2018-10-06] MEDS: Levothyroxine 88 MCG Tablet PO (05:46)
[2018-10-06] MEDS: Ipratropium/Albuterol Sulfate 3 ML AMPUL.NEB INHALATION ×4 (07:08→18:46)
[2018-10-06] MEDS: oxyCODONE 5 MG Tablet PO ×3 (07:55→20:36)
[2018-10-06] MEDS: Aspirin 325 MG Tablet PO (07:56)
[2018-10-06] MEDS: 0.9% NaCl Peripheral Flush Adult/Peds IV (07:56)
[2018-10-06] MEDS: CHLORHEXIDINE GLUC 2% CLOTH 1 EACH TOWELETTE TOPICAL (07:58)
[2018-10-06] MEDS: FLUoxetine 20 MG Capsule 40 MG PO ×2 (09:46→20:37)
[2018-10-06] MEDS: Enoxaparin 40 MG/0.4 ML Syringe SC (09:47)
[2018-10-06] MEDS: Clopidogrel Bisulfate 75 MG Tablet PO (09:47)
[2018-10-06] MEDS: Docusate Sodium 100 MG/10 ML UDC PO (09:48)
[2018-10-06] MEDS: Polyethylene Glycol 3350 17 GM PACKET PO (09:52)
[2018-10-06] MEDS: Senna Tablet 2 TABLET PO (09:52)
[2018-10-06] MEDS: Pantoprazole Sodium 40 MG Tablet PO (09:55)
[2018-10-06] MEDS: Baclofen 10 MG Tablet PO (10:03)
[2018-10-06] MEDS: buPROPion (XL) 300 MG TABLET.XL PO (10:12)
--- NOTE | 2018-10-06 10:38 | CASEMGMT ---
DEWAYNE LOPEZ NOTE: Spoke w/[facility] @ [facility]. She states they are able to accept pt for [facility] services. She was made aware that pt remains in ICU and CM will notify [facility] w/anticipated discharge date once this is known. Veronica JARVISN DEWAYNE LOPEZ
--- NOTE | 2018-10-06 11:59 | PN_ITS ---
Subjective: Patient did okay overnight. Patient did have an episode where she was unresponsive and hypertensive. Nursing reported she did not respond to a braden rnal rub. ABG was obtained showing adequate oxygenation ventilation. Patient did have a stat CT scan that was within normal limits. By this morning, patient was back to her normal mental status. Patient reportedly had some confusion after waking up. Patient was treated with BiPAP overnight with good response. General: Alert, Oriented x3, Cooperative, No apparent distress, - - Obese. No conversational dyspnea. HEENT: Atraumatic, PERRLA, EOMI, Normocephalic, - - No scleral icterus or injection noted. Oral: Moist Mucosa, No Gingival or Mucosal Lesions/ Ulcerations Neck: Supple, No JVD, No Nodes, Trachea Midline Lungs: No rhonchi, No wheeze, No rales, Diminished, - - Symmetric expansion. No dullness to percussion. Cardiovascular: Regular rate, Regular Rhythm, Normal S1, Normal S2, No murmurs, No rub noted, No Gallop Abdomen: Bowel Sounds Present, Soft, Non Tender, Non-Distended, Obese Extremities: No clubbing, No cyanosis, Edema Skin: - - No significant change compared to previous Musculoskeletal: No Tenderness to Palpation of Joints or Extremities Lymphatic: No Cervical, Supraclavicular, or Inguinal Adenopathy Neurological: Cranial nerves II-XII grossly intact, Neuro grossly intact Psych/Mental Status: Alert and oriented to time, place, person, mood and affect Vital Signs Temp Pulse Resp BP Pulse Ox 36.3 C L 91 17 145/85 H 91 10/06/18 08:00 10/06/18 11:00 10/06/18 11:00 10/06/18 11:00 10/06/18 11:00 Oxygen Flow Rate (L/min) 3 Oxygen Delivery Method Nasal Cannula Weight: 76.2 kg Body Mass Index (BMI) 33.0 Intake and Output for Last 24 Hours 10/04/18 10/05/18 10/06/18 23:59 23:59 23:59 Intake Total 5308.4 / 5308.4 764.9 / 764.9 1091 / 1091 Output Total 2550 / 2550 2400 / 2400 1100 / 1100 Balance 2758.4 / 2758.4 -1635.1 / -1635.1 -9 / -9 Labs (Last 48 Hours) 10/05/18 10/05/18 10/05/18 03:00 03:00 03:00 WBC 7.6 RBC 3.15 L Hgb 8.9 L Hct 29.0 L MCV 92.1 MCH 28.3 MCHC 30.7 L RDW 16.9 H RDW Differential 55.2 H Plt Count 400 MPV 9.4 Immature Gran % (Auto) 0.100 Neut % (Auto) 62.2 Lymph % (Auto) 26.4 [place] % (Auto) 9.7 Eos % (Auto) 1.3 Baso % (Auto) 0.3 Absolute Neuts (auto) 4.7 Absolute Lymphs (auto) 2.01 Total Counted Not Reportable PT 14.0 INR 1.1 APTT 31.2 Specimen Type Sample Site pH Bicarbonate Actual POC Total CO2 Base Excess O2 Saturation O2 % ABG pCO2 ABG pO2 Luke Test O2 Delivery Device Liter Flow Vent Mode POC PEEP POC Pressure Suppt Blood Gas Notified Whom Blood Gas Notified Time Sodium 146 H Potassium 3.7 Chloride 110 H Carbon Dioxide 27.0 Anion Gap 9 BUN 10 Creatinine 0.63 Estim Creat Clear Calc 108.94 Est GFR (MDRD) Af Amer 123 Est GFR (MDRD) Non-Af 102 BUN/Creatinine Ratio 15.9 Glucose 102 Calcium 7.9 L Ammonia Troponin I POC Glucose 10/05/18 10/06/18 10/06/18 06:00 00:48 00:55 WBC RBC Hgb Hct MCV MCH MCHC RDW RDW Differential Plt Count MPV Immature Gran % (Auto) Neut % (Auto) Lymph % (Auto) [place] % (Auto) Eos % (Auto) Baso % (Auto) Absolute Neuts (auto) Absolute Lymphs (auto) Total Counted PT INR APTT Specimen Type ART ART Sample Site L Radial R Radial pH 7.43 7.41 Bicarbonate Actual 26.1 H 30.7 H POC Total CO2 27 32 Base Excess 2 6 H O2 Saturation 95 93 L O2 % 40 ABG pCO2 39.8 48.3 H ABG pO2 75 68 L Luke Test POS POS O2 Delivery Device Vent Nasal Can Liter Flow 3.0 Vent Mode CPAP PS POC PEEP 5 POC Pressure Suppt 5 Blood Gas Notified Whom ICU MD HOSP Blood Gas Notified Time 552 50 Sodium Potassium Chloride Carbon Dioxide Anion Gap BUN Creatinine Estim Creat Clear Calc Est GFR (MDRD) Af Amer Est GFR (MDRD) Non-Af BUN/Creatinine Ratio Glucose Calcium Ammonia Troponin I POC Glucose 141 H 10/06/18 10/06/18 10/06/18 01:10 01:10 01:10 WBC 14.8 H RBC 3.56 L Hgb 10.1 L Hct 32.8 L MCV 92.1 MCH 28.4 MCHC 30.8 L RDW 16.9 H RDW Differential 55.4 H Plt Count 454 H MPV 9.5 Immature Gran % (Auto) 0.300 Neut % (Auto) 74.3 H Lymph % (Auto) 14.3 L [place] % (Auto) 9.3 Eos % (Auto) 1.6 Baso % (Auto) 0.2 Absolute Neuts (auto) 11.0 H Absolute Lymphs (auto) 2.11 Total Counted Not Reportable PT INR APTT Specimen Type Sample Site pH Bicarbonate Actual POC Total CO2 Base Excess O2 Saturation O2 % ABG pCO2 ABG pO2 Luke Test O2 Delivery Device Liter Flow Vent Mode POC PEEP POC Pressure Suppt Blood Gas Notified Whom Blood Gas Notified Time Sodium 144 Potassium 3.1 L Chloride 109 H Carbon Dioxide 30.0 Anion Gap 5 BUN 6 L Creatinine 0.86 Estim Creat Clear Calc 80.33 Est GFR (MDRD) Af Amer 86 Est GFR (MDRD) Non-Af 71 BUN/Creatinine Ratio 7.0 L Glucose 129 H Calcium 8.5 Ammonia 24.0 Troponin I 0.017 POC Glucose Microbiology 10/04/18 06:30 Urine Catheter - Catheter Urine Culture - Final Culture exhibits no growth. 09/30/18 09:30 Blood Culture (Wb) #2 - Anticubital Left Blood Culture - Final No growth in 5 days. 10/04/18 04:30 Sputum, Induced/Lukens Gram Stain - Final 10/04/18 04:30 Sputum, Induced/Lukens Respiratory Culture - Preliminary Appears to be normal respiratory gera. Further studies to follow. 09/30/18 08:20 Blood Culture (Wb) - Anticubital Left Blood Culture - Final No growth in 5 days. 10/01/18 22:52 Sputum, Expectorated/Coughed Gram Stain - Final 10/01/18 22:52 Sputum, Expectorated/Coughed Respiratory Culture - Final Mixed normal respiratory gera. No Streptococcus pneumoniae, beta-hemolytic Streptococcus or Staphylococcus aureus isolated. Clinical Impression(s) from Imaging Studies Brain CT 10/06/18 01:03 IMPRESSION: Minimal involutional changes. There is no acute intracranial pathology. Other nonacute findings as outlined above. Electronically Signed: Shruthi Miguel MD at 2:30 EDT , Service support , Medical Necessity - Tobacco Use Smoking Status: Heavy Smoker (>10/day) Tobacco Use: Cigarettes Assessment/Plan All Active Problems Biliary colic (Acute) Community acquired pneumonia (Acute) Previous back surgery (Acute) S/P hysterectomy (Acute) S/P carpal tunnel release (Acute) S/P knee surgery (Acute) S/P correction of deviated nasal septum (Acute) Status post thyroidectomy (Acute) H/O heart artery stent (Acute) Status post amputation of right foot (Acute) Depression (Acute) Anxiety (Acute) Nausea and vomiting (Acute) GERD (gastroesophageal reflux disease) (Acute) Heart disease (Acute) RECOMMENDATIONS: 1. Continue antibiotics to complete a 10-day course 2. Transition bronchodilators to while awake 3. Wean supplemental oxygen to maintain saturations at or above 90%. 4. Continue p.o. diet 5. BiPAP With sleep 6. Likely okay to transfer from the intensive care unit later today if does well through the day IMPRESSIONS: 1. Acute combined respiratory failure secondary to community-acquired pneumonia Patient did well overnight. Patient's sputum culture is still pending, but responds to cefepime well. Infectious disease is following. Anticipate c ompleting a 10-day course. Respiratory status has remained stable. Unclear etiology of decreased mental status overnight. Patient can use BiPAP with sleep while in the hospital. A repeat titration will need to be completed as an outpatient to see if this is appropriate chronically. Encourage incentive spirometer and Acapella. Possibly transfer out of the intensive care unit later today if no repeat events of unresponsiveness are noted. 2. Personal history of tobacco dependency Smoking cessation counseling was provided. The patient undoubtedly will need to be followed in the pulmonary medicine clinic so that baseline PFTs can be obtained to confirm or refute a diagnosis of COPD. 3. History of obstructive sleep apnea Patient reportedly is compliant with RAUL therapy as an outpatient. Patient's to bring in home CPAP machine to use with sleep 4. Hypertension/hypothyroidism/GERD/depression/anxiety/chronic pain syndrome Complicates care, management, recovery and prognosis. Continue home medications as indicated. Code Visit Inpatient E&M: 07699 Subs Hosp L3
--- NOTE | 2018-10-06 12:42 | PN.ID_ITS ---
Patient Problems: Active and Suspected Problems Community acquired pneumonia (Acute) Subjective: Pt obtunded overnight, feeling ok today. Denies SOB, unable to bring up sputum. No fever, no n/v/d. - Physical Exam General: Alert, Cooperative, No apparent distress Lungs: Clear to auscultation, Normal air movement Cardiovascular: Regular rate, Regular Rhythm Abdomen: Soft, Non Tender, Non-Distended Skin: No rashes Vital Signs Temp Pulse Resp BP Pulse Ox 97.4 F L 91 17 145/85 H 91 10/06/18 08:00 10/06/18 11:00 10/06/18 11:00 10/06/18 11:00 10/06/18 11:00 Oxygen Flow Rate (L/min) 3 Oxygen Delivery Method Nasal Cannula Weight: 76.2 kg Body Mass Index (BMI) 33.0 Intake and Output for Last 24 Hours 10/04/18 10/05/18 10/06/18 23:59 23:59 23:59 Intake Total 5308.4 / 5308.4 764.9 / 764.9 1091 / 1091 Output Total 2550 / 2550 2400 / 2400 1100 / 1100 Balance 2758.4 / 2758.4 -1635.1 / -1635.1 -9 / -9 Microbiology Past 72 Hours 10/04/18 06:30 Urine Culture - Final Urine Catheter - Catheter Culture exhibits no growth. 09/30/18 09:30 Blood Culture - Final Blood Culture (Wb) #2 - Anticubital Left No growth in 5 days. 10/04/18 04:30 Gram Stain - Final Sputum, Induced/Lukens Respiratory Culture - Preliminary Appears to be normal respiratory gera. Further studies to follow. 09/30/18 08:20 Blood Culture - Final Blood Culture (Wb) - Anticubital Left No growth in 5 days. 10/01/18 22:52 Gram Stain - Final Sputum, Expectorated/Coughed Respiratory Culture - Final Mixed normal respiratory gera. No Streptococcus pneumoniae, beta-hemolytic Streptococcus or Staphylococcus aureus isolated. Laboratory Tests Past 24 Hrs 10/06/18 10/06/18 10/06/18 00:48 01:10 01:10 WBC 14.8 H RBC 3.56 L Hgb 10.1 L Hct 32.8 L MCV 92.1 MCH 28.4 MCHC 30.8 L RDW 16.9 H RDW Differential 55.4 H Plt Count 454 H MPV 9.5 Immature Gran % (Auto) 0.300 Neut % (Auto) 74.3 H Lymph % (Auto) 14.3 L [place] % (Auto) 9.3 Eos % (Auto) 1.6 Baso % (Auto) 0.2 Absolute Neuts (auto) 11.0 H Absolute Lymphs (auto) 2.11 Total Counted Not Reportable Specimen Type ART Sample Site R Radial pH 7.41 Bicarbonate Actual 30.7 H POC Total CO2 32 Base Excess 6 H O2 Saturation 93 L ABG pCO2 48.3 H ABG pO2 68 L Luke Test POS O2 Delivery Device Nasal Can Liter Flow 3.0 Blood Gas Notified Whom HOSP MD Blood Gas Notified Time 50 Sodium 144 Potassium 3.1 L Chloride 109 H Carbon Dioxide 30.0 Anion Gap 5 BUN 6 L Creatinine 0.86 Estim Creat Clear Calc 80.33 Est GFR (MDRD) Af Amer 86 Est GFR (MDRD) Non-Af 71 BUN/Creatinine Ratio 7.0 L Glucose 129 H Calcium 8.5 Ammonia Troponin I 0.017 10/06/18 01:10 WBC RBC Hgb Hct MCV MCH MCHC RDW RDW Differential Plt Count MPV Immature Gran % (Auto) Neut % (Auto) Lymph % (Auto) [place] % (Auto) Eos % (Auto) Baso % (Auto) Absolute Neuts (auto) Absolute Lymphs (auto) Total Counted Specimen Type Sample Site pH Bicarbonate Actual POC Total CO2 Base Excess O2 Saturation ABG pCO2 ABG pO2 Luke Test O2 Delivery Device Liter Flow Blood Gas Notified Whom Blood Gas Notified Time Sodium Potassium Chloride Carbon Dioxide Anion Gap BUN Creatinine Estim Creat Clear Calc Est GFR (MDRD) Af Amer Est GFR (MDRD) Non-Af BUN/Creatinine Ratio Glucose Calcium Ammonia 24.0 Troponin I POC Glucose 10/06/18 00:55 POC Glucose 141 H Medical Necessity - Tobacco Use Smoking Status: Heavy Smoker (>10/day) Tobacco Use: Cigarettes Route of nutrition/ use of supplements: [] Nutritional Intake: [] IV Site: [] Dolan Catheter: [] - Assessment/Plan Antibiotics: [] Assessment/Plan: [] Active and Suspected Problems Community acquired pneumonia (Acute) CAP with acute resp failure and hypotension - MRSA nasal screen neg. Sputum cx with GPC and wbc on gram stain, but cx neg. Repeat cx sent of purulent secr etions s/p intubation, cx only with oral gera. She reports tolerating augmentin and keflex with no issue in the past. Off vent, BP much improved; on cefepime, day 3. Day 7 total of abx. Plan on completing abx 10/09 for 3 more days of treatment. May be able to switch to po prior to that point. Will follow
--- NOTE | 2018-10-06 16:57 | PN_ITS ---
Patient Problems: Active and Suspected Problems (Last Updated 10/06/18 @ 16:59 by Milton Jones DO) Community acquired pneumonia (Acute) Subjective: Patient was seen and examined today, she had an episode of decreased level of consciousness last night, patient is alert today, the exact etiology of the episode is unknown. Patient does not complain of any shortness of breath or chest pain today. I have reviewed her medications, patient is not taking oral baclofen at home I have stopped this medication. - Physical Exam General: Alert, Oriented x3, Cooperative, No apparent distress, Well developed, Well nourished HEENT: Atraumatic, PERRLA, EOMI, Normocephalic Oral: Moist Mucosa Neck: Supple, No JVD, Trachea Midline, Thyroid Normal Size and Texture Lungs: Clear to auscultation, Normal air movement, No rhonchi, No wheeze, No rales, Diminished Cardiovascular: Regular rate, Regular Rhythm, Normal S1, Normal S2, No murmurs, No Ectopic Activity, PMI Normal, No rub noted, No Gallop Abdomen: Bowel Sounds Present, Soft, Non Tender, Non-Distended, No hernias noted Extremities: No clubbing, No cyanosis, No edema, Capillary Refill Less than 3 Seconds, - - Patient has a right below the knee amputation Skin: No rashes, No breakdown Musculoskeletal: No Tenderness to Palpation of Joints or Extremities Neurological: Cranial nerves II-XII grossly intact, Neuro grossly intact, Sensory exam intact to light touch and pain, Coordination normal Psych/Mental Status: Normal Affect, Appropriate, Alert and oriented to time, place, person, mood and affect Vital Signs Temp Pulse Resp BP Pulse Ox 97 F L 83 13 139/72 H 93 10/06/18 16:00 10/06/18 16:00 10/06/18 16:00 10/06/18 16:00 10/06/18 16:00 Oxygen Flow Rate (L/min) 3 Oxygen Delivery Method Nasal Cannula Weight: 76.2 kg Body Mass Index (BMI) 33.0 Intake and Output for Last 24 Hours 10/04/18 10/05/18 10/06/18 23:59 23:59 23:59 Intake Total 5308.4 / 5308.4 764.9 / 764.9 1581 / 1581 Output Total 2550 / 2550 2400 / 2400 1950 / 1950 Balance 2758.4 / 2758.4 -1635.1 / -1635.1 -369 / -369 Microbiology Past 72 Hours 10/04/18 04:30 Gram Stain - Final Sputum, Induced/Lukens Respiratory Culture - Final Mixed normal respiratory gera. No Streptococcus pneumoniae, beta-hemolytic Streptococcus or Staphylococcus aureus isolated. 10/04/18 06:30 Urine Culture - Final Urine Catheter - Catheter Culture exhibits no growth. 09/30/18 09:30 Blood Culture - Final Blood Culture (Wb) #2 - Anticubital Left No growth in 5 days. 09/30/18 08:20 Blood Culture - Final Blood Culture (Wb) - Anticubital Left No growth in 5 days. 10/01/18 22:52 Gram Stain - Final Sputum, Expectorated/Coughed Respiratory Culture - Final Mixed normal respiratory gera. No Streptococcus pneumoniae, beta-hemolytic Streptococcus or Staphylococcus aureus isolated. Laboratory Tests Past 24 Hrs 10/06/18 10/06/18 10/06/18 00:48 01:10 01:10 WBC 14.8 H RBC 3.56 L Hgb 10.1 L Hct 32.8 L MCV 92.1 MCH 28.4 MCHC 30.8 L RDW 16.9 H RDW Differential 55.4 H Plt Count 454 H MPV 9.5 Immature Gran % (Auto) 0.300 Neut % (Auto) 74.3 H Lymph % (Auto) 14.3 L [place] % (Auto) 9.3 Eos % (Auto) 1.6 Baso % (Auto) 0.2 Absolute Neuts (auto) 11.0 H Absolute Lymphs (auto) 2.11 Total Counted Not Reportable Specimen Type ART Sample Site R Radial pH 7.41 Bicarbonate Actual 30.7 H POC Total CO2 32 Base Excess 6 H O2 Saturation 93 L ABG pCO2 48.3 H ABG pO2 68 L Luke Test POS O2 Delivery Device Nasal Can Liter Flow 3.0 Blood Gas Notified Whom HOSP Blood Gas Notified Time 50 Sodium 144 Potassium 3.1 L Chloride 109 H Carbon Dioxide 30.0 Anion Gap 5 BUN 6 L Creatinine 0.86 Estim Creat Clear Calc 80.33 Est GFR (MDRD) Af Amer 86 Est GFR (MDRD) Non-Af 71 BUN/Creatinine Ratio 7.0 L Glucose 129 H Calcium 8.5 Ammonia Troponin I 0.017 10/06/18 01:10 WBC RBC Hgb Hct MCV MCH MCHC RDW RDW Differential Plt Count MPV Immature Gran % (Auto) Neut % (Auto) Lymph % (Auto) [place] % (Auto) Eos % (Auto) Baso % (Auto) Absolute Neuts (auto) Absolute Lymphs (auto) Total Counted Specimen Type Sample Site pH Bicarbonate Actual POC Total CO2 Base Excess O2 Saturation ABG pCO2 ABG pO2 Luke Test O2 Delivery Device Liter Flow Blood Gas Notified Whom Blood Gas Notified Time Sodium Potassium Chloride Carbon Dioxide Anion Gap BUN Creatinine Estim Creat Clear Calc Est GFR (MDRD) Af Amer Est GFR (MDRD) Non-Af BUN/Creatinine Ratio Glucose Calcium Ammonia 24.0 Troponin I POC Glucose 10/06/18 00:55 POC Glucose 141 H Medical Necessity - Tobacco Use Smoking Status: Heavy Smoker (>10/day) Tobacco Use: Cigarettes Assessment/Plan All Active Problems (Last Updated 10/06/18 @ 16:59 by Milton Jones DO) Biliary colic (Resolved) Community acquired pneumonia (Acute) Nausea and vomiting (Resolved) #1 acute on chronic combined respiratory failure-patient will remain in the ICU for now, she will be reevaluated tomorrow, continue present treatment. Patient has oxygen at home and uses it at night while sleeping and during the day if she becomes short of breath. 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 Code Visit Inpatient E&M: 30250 Subs Hosp L2
[2018-10-06] MEDS: Acetaminophen 325 MG Tablet 650 MG PO (18:57)
--- NOTE | 2018-10-06 19:19 | NURSING ---
[id number] Dr. Gomes at bedside accessed pain pump and wasted 3.5ml of morphine and baclofen 20ml of morphine and baclofen injected into pain pump by dr. gomes
[2018-10-06] MEDS: Atorvastatin Calcium 80 MG Tablet PO (20:37)
[2018-10-07] VITALS (26 sets, daily range): BP systolic 98–161; BP diastolic 56–91; PULSE 63–103; RESP 13–20; TEMP 36.3–37.2; O2SAT 87–100
[2018-10-07 04:04] LABS: Absolute Lymphocyte Count 1.71 X10^3/ul (0.83-4.51); Anion Gap 5 (5-15); BUN 8 mg/dL (7-18); BUN/Creat Ratio 14.9 RATIO (10-20); Basophil# 0.03 X10^3/uL; Basophil% 0.3 % (0-1); Calcium,Total 8.6 mg/dL (8.5-10.1); Chloride 105 mmol/L (98-107); Creatinine, Serum 0.54 mg/dL (0.55-1.02); EST Glomerular Filtration Rate 122 mL/min (>60); Eosinophil# 0.26 X10^3/uL; Eosinophils% 2.6 % (0-5); Est Glom Filt Rate - Afr Amer 148 mL/min (>60); Estimated Creatinine Clearance 128.27 ml/min; Glucose 108 mg/dL (74-106); Hemoglobin 9.2 g/dl (12.0-15.0); Lymphocyte # 1.71 X10^3/ul (4.0); Lymphocyte % 16.8 % (19-41); Mean Corp Hgb Conc 30.7 g/gl (32-36); Mean Corpuscular Hgb 28.4 pg (27.0-32.0); Mean Corpuscular Volume 92.6 fL (81-99); Mean Platelet Vol. 9.3 fl (6.2-12.0); Monocyte# 1.15 X10^3/uL; Monocyte% 11.3 % (0-10); Neutrophil # 7.01 X10^3/uL (2.7-7.7); Neutrophil % 68.8 % (47-70); Platelet Count 404 K/mm3 (150-450); Potassium 3.4 mmol/L (3.5-5.1); RBC Distribution Width CV 16.6 % (11.6-14.6); RBC Distribution Width SD 56.3 fl (35.1-43.9); Red Blood Count 3.24 M/mm3 (4.2-5.4); Sodium Level 144 mmol/L (136-145); White Blood Count 10.2 K/mm3 (4.4-11.0)
[2018-10-07 04:06] LABS: POSITIVE COUNT NO; POSITIVE DIFFERENTIAL NO; POSITIVE MORPHOLOGY NO
[2018-10-07] MEDS: Levothyroxine 88 MCG Tablet PO (05:53)
[2018-10-07] MEDS: oxyCODONE 5 MG Tablet PO ×2 (05:53→16:28)
[2018-10-07] MEDS: Alendronate Sodium 70 MG Tablet PO (05:53)
[2018-10-07] MEDS: Ipratropium/Albuterol Sulfate 3 ML AMPUL.NEB INHALATION ×4 (06:50→20:04)
--- NOTE | 2018-10-07 07:01 | NURSING ---
Patient not responding to voice or sternal rub this AM for nursing or respiratory therapy. RT called Dr. Page who said the patient did the same thing yesterday, they did a whole work up on the patient and she was fine. Dr. Page ordered ABG's to be obtained but otherwise is not concerned given the same event occurred yesterday.
--- NOTE | 2018-10-07 07:25 | CPS ---
Pt unresponsive. This RT and patient nurse sternal rubbed patient with no response. Call to Dr Page made and he gave this RT orders for an ABG and to place patient on AVAPS.
[2018-10-07 07:26] LABS: Base Excess 8 mmol/L (-2 to +2); Bicarbonate 32.9 mmol/L (22-26); O2 Delivery Device Nasal Can; PO2 38 mmHG (75-100); SITE R Radial; SO2 69 % (95-99); Time Given 716; Total Carbon Dioxide 35 mmol/L; pCO2 57.1 mmHg (35-45); pH 7.37 (7.35-7.45)
[2018-10-07 08:53] LABS: Blood Gas Specimen Type VEN
--- NOTE | 2018-10-07 10:09 | PCM.PN.ID ---
Patient Problems: Active and Suspected Problems (Last Updated 10/06/18 @ 16:59 by Milton Jones DO) Community acquired pneumonia (Acute) Subjective: Another episode of unresponsiveness this AM. No fever, denies SOB, no n/v/d. - Physical Exam General: Alert, Cooperative, No apparent distress Lungs: Clear to auscultation, Normal air movement Cardiovascular: Regular rate, Regular Rhythm Abdomen: Soft, Non Tender, Non-Distended Skin: No rashes Vital Signs Temp Pulse Resp BP Pulse Ox 97.9 F 71 17 154/68 H 92 10/07/18 05:30 10/07/18 09:37 10/07/18 09:37 10/07/18 05:30 10/07/18 09:37 Oxygen Flow Rate (L/min) 4.5 Oxygen Delivery Method Nasal Cannula Weight: 74 kg Body Mass Index (BMI) 33.0 Intake and Output for Last 24 Hours 10/05/18 10/06/18 10/07/18 23:59 23:59 23:59 Intake Total 764.9 / 764.9 1980 240 / 240 Output Total 2400 / 2400 2150 / 2150 Balance -1635.1 / -1635.1 -169 / -169 240 / 240 Microbiology Past 72 Hours 10/04/18 04:30 Gram Stain - Final Sputum, Induced/Lukens Respiratory Culture - Final Mixed normal respiratory gera. No Streptococcus pneumoniae, beta-hemolytic Streptococcus or Staphylococcus aureus isolated. 10/04/18 06:30 Urine Culture - Final Urine Catheter - Catheter Culture exhibits no growth. 09/30/18 09:30 Blood Culture - Final Blood Culture (Wb) #2 - Anticubital Left No growth in 5 days. 09/30/18 08:20 Blood Culture - Final Blood Culture (Wb) - Anticubital Left No growth in 5 days. 10/01/18 22:52 Gram Stain - Final Sputum, Expectorated/Coughed Respiratory Culture - Final Mixed normal respiratory gera. No Streptococcus pneumoniae, beta-hemolytic Streptococcus or Staphylococcus aureus isolated. Laboratory Tests Past 24 Hrs 10/07/18 10/07/18 10/07/18 03:45 03:45 07:17 WBC 10.2 RBC 3.24 L Hgb 9.2 L Hct 30.0 L MCV 92.6 MCH 28.4 MCHC 30.7 L RDW 16.6 H RDW Differential 56.3 H Plt Count 404 MPV 9.3 Immature Gran % (Auto) 0.200 Neut % (Auto) 68.8 Lymph % (Auto) 16.8 L [place] % (Auto) 11.3 H Eos % (Auto) 2.6 Baso % (Auto) 0.3 Absolute Neuts (auto) 7.0 Absolute Lymphs (auto) 1.71 Total Counted Not Reportable Specimen Type CHANTEL Sample Site R Radial pH 7.37 Bicarbonate Actual 32.9 H POC Total CO2 35 Base Excess 8 H O2 Saturation 69 L ABG pCO2 57.1 H ABG pO2 38 L* O2 Delivery Device Nasal Can Liter Flow 4.0 Blood Gas Notified Whom ICU MD Blood Gas Notified Time 716 Sodium 144 Potassium 3.4 L Chloride 105 Carbon Dioxide 34.0 H Anion Gap 5 BUN 8 Creatinine 0.54 L Estim Creat Clear Calc 128.27 Est GFR (MDRD) Af Amer 148 Est GFR (MDRD) Non-Af 122 BUN/Creatinine Ratio 14.9 Glucose 108 H Calcium 8.6 Medical Necessity - Tobacco Use Smoking Status: Heavy Smoker (>10/day) Tobacco Use: Cigarettes Route of nutrition/ use of supplements: [] Nutritional Intake: [] IV Site: [] Dolan Catheter: [] - Assessment/Plan Antibiotics: [] Assessment/Plan: [] Active and Suspected Problems Community acquired pneumonia (Acute) CAP with acute resp failure and hypotension - MRSA nasal screen neg. Sputum cx with GPC and wbc on gram stain, but cx neg. Repeat cx sent of purulent secretions s/p intubation, cx only with oral gera. She reports tolerating augmentin and keflex with no issue in the past. Off vent, BP much improved; on cefepime, day 4. Day 8 total of abx. Plan on completing abx 10/09 for 3 more days of treatment. May be able to switch to po omnicef 300mg bid prior to that point. Will follow
[2018-10-07] MEDS: FLUoxetine 20 MG Capsule 40 MG PO ×2 (10:46→22:43)
[2018-10-07] MEDS: Polyethylene Glycol 3350 17 GM PACKET PO (10:46)
[2018-10-07] MEDS: Pantoprazole Sodium 40 MG Tablet PO (10:46)
[2018-10-07] MEDS: Clopidogrel Bisulfate 75 MG Tablet PO (10:47)
[2018-10-07] MEDS: Senna Tablet 2 TABLET PO ×2 (10:47→22:43)
[2018-10-07] MEDS: buPROPion (XL) 300 MG TABLET.XL PO (10:47)
[2018-10-07] MEDS: Docusate Sodium 100 MG/10 ML UDC PO (10:48)
[2018-10-07] MEDS: Enoxaparin 40 MG/0.4 ML Syringe SC (10:48)
[2018-10-07] MEDS: CHLORHEXIDINE GLUC 2% CLOTH 1 EACH TOWELETTE TOPICAL (10:55)
[2018-10-07] MEDS: Aspirin 81 MG TAB.CHEW PO (10:55)
[2018-10-07] MEDS: 0.9% NaCl Peripheral Flush Adult/Peds IV ×2 (11:28→12:56)
[2018-10-07] MEDS: Ondansetron 4 MG/2 ML Vial IV (12:56)
--- NOTE | 2018-10-07 16:39 | PCM.PN.PUL ---
Patient Problems: Active and Suspected Problems (Last Updated 10/06/18 @ 16:59 by Milton Jones DO) Community acquired pneumonia (Acute) Subjective: Patient transferred from the intensive care unit yesterday. Did get a phone call this morning the patient was unresponsive at approximately 7 AM. Patient had a VBG showing adequate ventilation. Later in the day, patient's mental status made back to normal. Patient has remained on nasal cannula oxygen during the day, but this is typically not needed at home. Patient subjectively feels less short of breath today compared to previous. - Physical Exam General: Alert, Oriented x3, Cooperative, No apparent distress, - - Obese. Speaking in full sentences. HEENT: Atraumatic, PERRLA, EOMI, Normocephalic, - - No scleral icterus or injection. Oral: Moist Mucosa, No Gingival or Mucosal Lesions/ Ulcerations Neck: Supple, No JVD, No Nodes, Trachea Midline Lungs: No rhonchi, No rales, Diminished, Wheezes - Sporadic Cardiovascular: Regular rate, Regular Rhythm, Normal S1, Normal S2, No murmurs, No rub noted, No Gallop Abdomen: Bowel Sounds Present, Soft, Non Tender, Non-Distended, Obese Extremities: No clubbing, No cyanosis, Edema Skin: - - No significant change compared to previous Musculoskeletal: No Tenderness to Palpation of Joints or Extremities Lymphatic: No Cervical, Supraclavicular, or Inguinal Adenopathy Neurological: Cranial nerves II-XII grossly intact, Neuro grossly intact, Motor Exam 5/5 strength throughout Psych/Mental Status: Alert and oriented to time, place, person, mood and affect Vital Signs Temp Pulse Resp BP Pulse Ox 37.1 C 96 18 153/72 H 93 10/07/18 11:00 10/07/18 15:42 10/07/18 15:42 10/07/18 11:00 10/07/18 11:00 Oxygen Flow Rate (L/min) 4 Oxygen Delivery Method Nasal Cannula Weight: 74 kg Body Mass Index (BMI) 33.0 Intake and Output for Last 24 Hours 10/05/18 10/06/18 10/07/18 23:59 23:59 23:59 Intake Total 764.9 / 764.9 1980 / 1980 1340 / 1340 Output Total 2400 / 2400 2150 / 2150 Balance -1635.1 / -1635.1 -169 / -169 1340 / 1340 Microbiology Past 72 Hours 10/04/18 04:30 Gram Stain - Final Sputum, Induced/Lukens Respiratory Culture - Final Mixed normal respiratory gera. No Streptococcus pneumoniae, beta-hemolytic Streptococcus or Staphylococcus aureus isolated. 10/04/18 06:30 Urine Culture - Final Urine Catheter - Catheter Culture exhibits no growth. 09/30/18 09:30 Blood Culture - Final Blood Culture (Wb) #2 - Anticubital Left No growth in 5 days. 09/30/18 08:20 Blood Culture - Final Blood Culture (Wb) - Anticubital Left No growth in 5 days. Laboratory Tests Past 24 Hrs 10/07/18 10/07/18 10/07/18 03:45 03:45 07:17 WBC 10.2 RBC 3.24 L Hgb 9.2 L Hct 30.0 L MCV 92.6 MCH 28.4 MCHC 30.7 L RDW 16.6 H RDW Differential 56.3 H Plt Count 404 MPV 9.3 Immature Gran % (Auto) 0.200 Neut % (Auto) 68.8 Lymph % (Auto) 16.8 L [place] % (Auto) 11.3 H Eos % (Auto) 2.6 Baso % (Auto) 0.3 Absolute Neuts (auto) 7.0 Absolute Lymphs (auto) 1.71 Total Counted Not Reportable Specimen Type CHANTEL Sample Site R Radial pH 7.37 Bicarbonate Actual 32.9 H POC Total CO2 35 Base Excess 8 H O2 Saturation 69 L ABG pCO2 57.1 H ABG pO2 38 L* O2 Delivery Device Nasal Can Liter Flow 4.0 Blood Gas Notified Whom ICU MD Blood Gas Notified Time 716 Sodium 144 Potassium 3.4 L Chloride 105 Carbon Dioxide 34.0 H Anion Gap 5 BUN 8 Creatinine 0.54 L Estim Creat Clear Calc 128.27 Est GFR (MDRD) Af Amer 148 Est GFR (MDRD) Non-Af 122 BUN/Creatinine Ratio 14.9 Glucose 108 H Calcium 8.6 Medical Necessity - Tobacco Use Smoking Status: Heavy Smoker (>10/day) Tobacco Use: Cigarettes Assessment/Plan All Active Problems (Last Updated 10/06/18 @ 16:59 by Milton Jones DO) Biliary colic (Resolved) Community acquired pneumonia (Acute) Nausea and vomiting (Resolved) RECOMMENDATIONS: 1. Continue antibiotics to complete a 10-day course 2. Continue bronchodilators to while awake 3. Wean supplemental oxygen to maintain saturations at or above 90%. 4. Continue p.o. diet 5. BiPAP With sleep 6. Increase activity as tolerated IMPRESSIONS: 1. Acute combined respiratory failure secondary to community-acquired pneumonia Patient did well overnight. Patient's sputum culture is still pending, but responds to cefepime well. Infectious disease is following. Anticipate completing a 10-day course. Respiratory status has remained stable. Unclear etiology of decreased mental status overnight. Patient can use BiPAP with sleep while in the hospital. A repeat titration will need to be completed as an outpatient to see if this is appropriate chronically. ABGs have not shown any significant acidosis to suggest hypoventilation. Patient does have a pain pump that was recently filled, but is not showing signs of decreased mental status during the day. 2. Personal history of tobacco dependency Smoking cessation counseling was provided. The patient undoubtedly will need to be followed in the pulmonary medicine clinic so that baseline PFTs can be obtained to confirm or refute a diagnosis of COPD. 3. History of obstructive sleep apnea Patient reportedly is compliant with RAUL therapy as an outpatient. Patient to continue AVAPS while in the hospital. 4. Hypertension/hypothyroidism/GERD/depression/anxiety/chronic pain syndrome Complicates care, management, recovery and prognosis. Continue home medications as indicated. Code Visit Inpatient E&M: 62518 [facility] L3
--- NOTE | 2018-10-07 17:13 | PN_ITS ---
Patient Problems: Active and Suspected Problems (Last Updated 10/06/18 @ 16:59 by Milton Jones DO) Community acquired pneumonia (Acute) Subjective: She was seen and examined today, she had an episode early this morning which she became briefly unresponsive to painful stimuli but this cleared spontaneously. Patient had been given oral narcotics earlier in the morning. I talked to the patient today, she states that she takes OxyIR at home only as needed, I have decided to change the interval of the medication to every 6 hours as needed here. Patient has no complaints of increased shortness of breath or chest discomfort at the time of my examination - Physical Exam General: Alert, Oriented x3, Cooperative, No apparent distress HEENT: Atraumatic, PERRLA, EOMI, Normocephalic Oral: Moist Mucosa Neck: Supple, No JVD, Trachea Midline, Thyroid Normal Size and Texture Lungs: Normal air movement, Wheezes - Expiratory wheezes are scattered bilaterally Cardiovascular: Regular rate, Regular Rhythm, Normal S1, Normal S2, No murmurs, No Ectopic Activity Abdomen: Bowel Sounds Present, Soft, Non Tender, Non-Distended, No hernias noted Extremities: No clubbing, No cyanosis, No edema, Capillary Refill Less than 3 Seconds, - - Right [id number] amputation is noted Skin: No rashes, No breakdown Musculoskeletal: No Tenderness to Palpation of Joints or Extremities Neurological: Cranial nerves II-XII grossly intact, Neuro grossly intact, Sensory exam intact to light touch and pain, Coordination normal Psych/Mental Status: Normal Affect, Appropriate, Alert and oriented to time, place, person, mood and affect Vital Signs Temp Pulse Resp BP Pulse Ox 98.9 F 103 H 16 119/57 L 95 10/07/18 17:00 10/07/18 17:00 10/07/18 17:00 10/07/18 17:00 10/07/18 17:00 Oxygen Flow Rate (L/min) 4 Oxygen Delivery Method Nasal Cannula Weight: 74 kg Body Mass Index (BMI) 33.0 Intake and Output for Last 24 Hours 10/05/18 10/06/18 10/07/18 23:59 23:59 23:59 Intake Total 764.9 / 764.9 1980 1340 / 1340 Output Total 2400 / 2400 2150 / 2150 Balance -1635.1 / -1635.1 -169 / -169 1340 / 1340 Microbiology Past 72 Hours 10/04/18 04:30 Gram Stain - Final Sputum, Induced/Lukens Respiratory Culture - Final Mixed normal respiratory gera. No Streptococcus pneumoniae, beta-hemolytic Streptococcus or Staphylococcus aureus isolated. 10/04/18 06:30 Urine Culture - Final Urine Catheter - Catheter Culture exhibits no growth. 09/30/18 09:30 Blood Culture - Final Blood Culture (Wb) #2 - Anticubital Left No growth in 5 days. 09/30/18 08:20 Blood Culture - Final Blood Culture (Wb) - Anticubital Left No growth in 5 days. Laboratory Tests Past 24 Hrs 10/07/18 10/07/18 10/07/18 03:45 03:45 07:17 WBC 10.2 RBC 3.24 L Hgb 9.2 L Hct 30.0 L MCV 92.6 MCH 28.4 MCHC 30.7 L RDW 16.6 H RDW Differential 56.3 H Plt Count 404 MPV 9.3 Immature Gran % (Auto) 0.200 Neut % (Auto) 68.8 Lymph % (Auto) 16.8 L [place] % (Auto) 11.3 H Eos % (Auto) 2.6 Baso % (Auto) 0.3 Absolute Neuts (auto) 7.0 Absolute Lymphs (auto) 1.71 Total Counted Not Reportable Specimen Type CHANTEL Sample Site R Radial pH 7.37 Bicarbonate Actual 32.9 H POC Total CO2 35 Base Excess 8 H O2 Saturation 69 L ABG pCO2 57.1 H ABG pO2 38 L* O2 Delivery Device Nasal Can Liter Flow 4.0 Blood Gas Notified Whom ICU MD Blood Gas Notified Time 716 Sodium 144 Potassium 3.4 L Chloride 105 Carbon Dioxide 34.0 H Anion Gap 5 BUN 8 Creatinine 0.54 L Estim Creat Clear Calc 128.27 Est GFR (MDRD) Af Amer 148 Est GFR (MDRD) Non-Af 122 BUN/Creatinine Ratio 14.9 Glucose 108 H Calcium 8.6 Medical Necessity - Tobacco Use Smoking Status: Heavy Smoker (>10/day) Tobacco Use: Cigarettes Assessment/Plan All Active Problems (Last Updated 10/06/18 @ 16:59 by Milton Jones DO) Biliary colic (Resolved) Community acquired pneumonia (Acute) Nausea and vomiting (Resolved) #1 acute on chronic combined respiratory failure-patient is stable at this time on nasal cannula O2 #2 community-acquired pneumonia-continue present antibiotic coverage per ID, patient will be changed to oral antibiotics tomorrow, I discussed this with infectious diseases. 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 Code Visit Inpatient E&M: 04280 [facility] L2
[2018-10-07] MEDS: Atorvastatin Calcium 80 MG Tablet PO (22:42)
[2018-10-08] VITALS (8 sets, daily range): BP systolic 135–147; BP diastolic 56–76; PULSE 82–93; RESP 13–18; TEMP 36.7–37; O2SAT 92–94
[2018-10-08] MEDS: Levothyroxine 88 MCG Tablet PO (05:04)
[2018-10-08] MEDS: 0.9% NaCl Peripheral Flush Adult/Peds IV ×2 (05:05→09:02)
[2018-10-08] MEDS: oxyCODONE 5 MG Tablet PO (05:05)
[2018-10-08] MEDS: Ipratropium/Albuterol Sulfate 3 ML AMPUL.NEB INHALATION ×2 (07:22→10:46)
[2018-10-08] MEDS: Enoxaparin 40 MG/0.4 ML Syringe SC (08:48)
[2018-10-08] MEDS: buPROPion (XL) 300 MG TABLET.XL PO (08:50)
[2018-10-08] MEDS: Senna Tablet 2 TABLET PO (08:50)
[2018-10-08] MEDS: Clopidogrel Bisulfate 75 MG Tablet PO (08:51)
[2018-10-08] MEDS: Pantoprazole Sodium 40 MG Tablet PO (08:51)
[2018-10-08] MEDS: FLUoxetine 20 MG Capsule 40 MG PO (08:51)
[2018-10-08] MEDS: Polyethylene Glycol 3350 17 GM PACKET PO (08:51)
[2018-10-08] MEDS: Aspirin 81 MG TAB.CHEW PO (08:53)
[2018-10-08] MEDS: Ondansetron 4 MG/2 ML Vial IV (09:02)
--- NOTE | 2018-10-08 10:35 | CASEMGMT ---
Green sheet/oxygen order/facesheet on chart for increased home oxygen need/order and with HHC information to notify. Order for HHC is already in [employer]. Pt refused therapy today d/t nausea. SStluz elena BUCHANAN CM
--- NOTE | 2018-10-08 12:01 | DCINST_ITS ---
- Discharge Diagnoses Current Active Problems: Current Active and Chronic Problems (Last Updated 10/06/18 @ 16:59 by Milton Jones DO) Community acquired pneumonia (Acute) You will use the following diet at home:: No restrictions Your food should be the consistency of: Regular Your liquids should be the consistency of: Regular/Thin Discharge Activity: Return to Normal Activity Allergies/Adverse Reactions: Allergies cefaclor [From Ceclor] Allergy (Verified 09/30/18 08:22) Itching clarithromycin Allergy (Verified 09/30/18 08:22) Hives doxycycline Allergy (Verified 09/30/18 08:22) Itching Penicillins Allergy (Verified 09/30/18 08:22) Hives Sulfa (Sulfonamide Antibiotics) Allergy (Verified 09/30/18 08:22) Hives Medications to take at Discharge Albuterol IH (ProAir) [Proair Hfa] 2 puff INHALATION PRN PRN 06/01/13 Atorvastatin Calcium [Lipitor] 80 mg PO QHS 06/01/13 Clopidogrel Bisulfate [Plavix] 75 mg PO DAILY 06/01/13 Fluoxetine [Prozac] 40 mg PO BID 06/01/13 Metoprolol Tartrate [Lopressor (beta jackie)] 25 mg PO BID 06/01/13 alendronate 70 mg tablet 70 mg PO QWEEK 07/20/18 omeprazole 20 mg capsule,delayed release 40 mg PO DAILY cap 07/20/18 tiotropium bromide 2.5 mcg/actuation mist for inhalation 2 puff INHALATION DAILY 07/20/18 Abaloparatide [Tymlos] 1.56 ml SQ DAILY 09/30/18 Bupropion HCl [Bupropion Xl] 300 mg PO DAILY 09/30/18 Calcium Carbonate [Calcium] 600 mg PO DAILY 09/30/18 Docusate Sodium [Stool Softener] 100 mg PO DAILY 09/30/18 Levothyroxine [Synthroid] 88 mcg PO DAILY 09/30/18 Oxycodone HCl/Acetaminophen [Percocet 7.5-325 mg Tablet] 1 - 2 tablet PO Q6H PRN PRN 09/30/18 Trazodone ER [Oleptro Er] 150 mg PO DAILY 09/30/18 Aspirin [Aspirin, Baby] 81 mg PO DAILY@0800 tab.chew 10/08/18 Cefdinir [Omnicef [equiv]] 600 mg PO DAILY #6 capsule 10/08/18 The following prescriptions were given: Cefdinir [Omnicef [equiv]] 600 mg PO DAILY #6 capsule Primary Care Physician: Chrystal Michel DO [Primary Care Provider] - Please follow up with your Primary Care Physician in: in 1-2 weeks Test Results: Test results from this visit will be discussed in further detail at your follow- up appointment, if applicable.
--- NOTE | 2018-10-08 12:16 | PCM.PN.PUL ---
Patient Problems: Active and Suspected Problems (Last Updated 10/06/18 @ 16:59 by Milton Jones DO) Community acquired pneumonia (Acute) Subjective: Patient did okay overnight. No unresponsive episode was reported by nursing. Patient does report a headache, but believes her breathing is doing well. Patient's was at the bedside during my evaluation and states that her saturations have been in the mid 80s for months prior to her presentation. - Physical Exam General: Alert, Oriented x3, Cooperative, No apparent distress, - - Appears older than stated age. Obese. HEENT: Atraumatic, PERRLA, EOMI, Normocephalic, - - Slight scleral injection without icterus Oral: Moist Mucosa, No Gingival or Mucosal Lesions/ Ulcerations Neck: Supple, No JVD, No Nodes, Trachea Midline Lungs: No rhonchi, No wheeze, No rales, Diminished, - Cardiovascular: Regular rate - Symmetric expansion. No dullness to percussion., Regular Rhythm, Normal S1, Normal S2, No murmurs, No rub noted, No Gallop Abdomen: Bowel Sounds Present, Soft, Non Tender, Non-Distended, Obese Extremities: No cyanosis, Clubbing, Edema Skin: - - No significant change compared to previous Musculoskeletal: No Tenderness to Palpation of Joints or Extremities Lymphatic: No Cervical, Supraclavicular, or Inguinal Adenopathy Neurological: Cranial nerves II-XII grossly intact, Neuro grossly intact, Motor Exam 5/5 strength throughout Psych/Mental Status: Alert and oriented to time, place, person, mood and affect Vital Signs Temp Pulse Resp BP Pulse Ox 36.7 C 92 18 147/56 H 94 10/08/18 09:06 10/08/18 11:01 10/08/18 10:46 10/08/18 09:06 10/08/18 09:06 Oxygen Flow Rate (L/min) 3 Oxygen Delivery Method Nasal Cannula Weight: 73 kg Body Mass Index (BMI) 33.0 Intake and Output for Last 24 Hours 10/06/18 10/07/18 10/08/18 23:59 23:59 23:59 Intake Total 1980 / 1898 404.7 / 404.7 Output Total 2149 / 2149 Balance -169 / -169 1898 / 1898 404.7 / 404.7 Microbiology Past 72 Hours 10/04/18 04:30 Gram Stain - Final Sputum, Induced/Lukens Respiratory Culture - Final Mixed normal respiratory gera. No Streptococcus pneumoniae, beta-hemolytic Streptococcus or Staphylococcus aureus isolated. 10/04/18 06:30 Urine Culture - Final Urine Catheter - Catheter Culture exhibits no growth. 09/30/18 09:30 Blood Culture - Final Blood Culture (Wb) #2 - Anticubital Left No growth in 5 days. 09/30/18 08:20 Blood Culture - Final Blood Culture (Wb) - Anticubital Left No growth in 5 days. Medical Necessity - Tobacco Use Smoking Status: Heavy Smoker (>10/day) Tobacco Use: Cigarettes Assessment/Plan All Active Problems (Last Updated 10/06/18 @ 16:59 by Milton Jones DO) Biliary colic (Resolved) Community acquired pneumonia (Acute) Nausea and vomiting (Resolved) RECOMMENDATIONS: 1. Continue antibiotics to complete a 10-day course 2. Okay to resume home bronchodilator therapy 3. Maintain saturations at or above 90%. 4. Continue p.o. diet 5. Resume home CPAP at discharge, but probable titration as outpatient for evaluation of BiPAP 6. Follow-up with nurse practitioner in 2 weeks IMPRESSIONS: 1. Acute combined respiratory failure secondary to community-acquired pneumonia Patient did well overnight. Patient's sputum culture is still pending, but responds to cefepime well. Infectious disease is following. Anticipate completing a 10-day course. Respiratory status has remained stable. Given 's history, likely patient will require supplemental oxygen indefinitely. Patient can follow-up in our office in 2 weeks for outpatient testing. 2. Personal history of tobacco dependency Smoking cessation counseling was provided. The patient undoubtedly will need to be followed in the pulmonary medicine clinic so that baseline PFTs can be obtained to confirm or refute a diagnosis of COPD. 3. History of obstructive sleep apnea Patient reportedly is compliant with RAUL therapy as an outpatient. Patient to continue AVAPS while in the hospital. 4. Hypertension/hypothyroidism/GERD/depression/anxiety/chronic pain syndrome Complicates care, management, recovery and prognosis. Continue home medications as indicated. Code Visit Inpatient E&M: 53850 Subs Hosp L2
--- NOTE | 2018-10-08 12:56 | CASEMGMT ---
Per Stephanie BUCHANAN, pt is 92% on 2 liters at rest. Pt does have a right bka and states she spends most of time in w/c. Call to [employer] to verify that they will be able to deliver tanks and she states that they will have to do OCD testing for the M6 tanks but can provide pt with a bag for the e-tanks as well as new e-tanks until the testing can be completed. She states that the nascar driver will be here in less than 2 hours as that is their policy. Pt/sig other updated on all at this time, voice understanding. Pt/sig other voice no further questions/concerns/needs at this time. Raine from [facility] aware that pt is being discharge today, voices understanding. Nikolas BUCHANAN CM
[2018-10-08] MEDS: Cefdinir 300 MG Capsule 600 MG PO (13:17)
[2018-10-08] MEDS: Sodium Chloride 0.65% 1 SPRAY SPRAY.BTL 2 SPRAY NASAL (13:17)
--- NOTE | 2018-10-09 15:29 | CM.UR ---
CM discharge phone call: Admit date: 10/03/18 DC date: 10/08/18 LACE/Strata: 13/ Spoke with patient at this time. States so far, so good. States she feels like she is getting strong every day. Asked if she had heard from [facility] yet. States no. Explained they were notified that she was discharged. So she should hear from the by Thursday. States she did get her oxygen and she is wearing it as ordered. Confirmed she filled her RX for antibiotic. Reinforced instructions for antibiotic and to complete the course as ordered. Verb understanding. Asked if she made a f/u appt with Dr. Michel. States she already had one scheduled for the end fo the month so she did not. Explained they wanted her to f/u in a week but if she felt it was ok to leave at almost 2 weeks--she's allowed to make that decision. Recommended if she starts having any problems to call Dr. Dueñas' office for a sooner appointment. Verb understanding. Has and son in the home and they are able to help her. /son will transport her to appointments. Gege Brock, RN, CCM.
--- NOTE | 2018-10-09 16:21 | PCM.DC.SUM ---
Discharge Date and Diagnosis Date of Admission: 09/30/18 Date of Discharge: 10/08/18 - Primary Discharge Diagnosis #1 acute on chronic combined respiratory failure #2 community-acquired pneumonia-felt to be gram-positive bacterial #3 chronic pain due to degenerative joint disease of lumbar spine #4 chronic anxiety #5 chronic depression #6 coronary artery disease #7 lethargy -probably secondary to narcotic administration #8 obstructive sleep apnea - Secondary Discharge Diagnosis Chronic Problems (Last Updated 10/06/18 @ 16:59 by Milton Jones DO) HTN (hypertension) (Chronic) Depression (Chronic) Anxiety (Chronic) GERD (gastroesophageal reflux disease) (Chronic) Heart disease (Chronic) spinal stimulator (Chronic) Spinal stenosis (Chronic) Chronic back pain (Chronic) Hypothyroidism (Chronic) Hospital Course and Treatment Procedures: 2-D Echocardiogram, Intubation Summary of Care Provided: The patient is a 63 year old F who was seen in the emergency room at [facility] with a chief complaint of shortness of breath. Patient had oxygen at home which she used intermittently but it had not been helping. Patient had been evaluated at an outside hospital a few days prior and she had been told she had pneumonia and she was given prednisone and aerosol treatments, however, symptoms persisted and so she came to the emergency room at [facility] for evaluation. Examination in the emergency room showed her pulse ox to be 94% on 3 L, CBC showed a white blood cell count 13.3 and her BNP was unremarkable. Chest x-ray showed bilateral lower lobe infiltrates worse on the right and nodular densities in the right hemithorax. EKG showed no acute ST changes, patient was admitted to in the context of on telemetry, she was placed on IV Levaquin and given aggressive aerosol treatments. However, despite aggressive medical treatment, patient's medical status deteriorated, she had to be transferred to ICU, seen by critical care, and underwent intubation. Echocardiogram was obtained which showed a normal ejection fraction. Patient was seen in consultation by infectious diseases and antibiotics were adjusted. Patient made slow progress in the ICU and she was initially extubated and transferred to PCU. There are periods where the patient was unresponsive early in the morning 2 separate times, this was felt to be secondary to sedating medication. Patient did not want to go to an extended care facility for short-term rehab and preferred to go home with home health. On 10/08/2018, patient was seen and examined: On examination she appeared in good health and spirits. Vital signs as documented. Skin warm and dry and without overt rashes. Neck without JVD. Lungs clear. Heart exam notable for regular rhythm, normal sounds and absence of murmurs, rubs or gallops. Abdomen unremarkable and without evidence of organomegaly, masses, or abdominal aortic enlargement. Extremities-no left lower extremity edema was noted. Neuro: Cranial nerves II through XII are grossly intact, no focal motor deficits were noted, sensation to light touch and pinprick is intact. Psych: Patient is alert and oriented x3, she does not appear anxious or depressed On 10/08/2018, patient was seen and examined felt to be in stable condition for discharge home. Patient required oxygen at 2 L/min via nasal cannula continuously at the time of discharge, she was expected to use this when ambulating and at rest at home. - Physical Exam Vital Signs Temp Pulse Resp BP Pulse Ox 98.1 F 93 18 145/76 H 92 10/08/18 12:52 10/08/18 12:52 10/08/18 12:52 10/08/18 12:52 10/08/18 12:52 Oxygen Flow Rate (L/min) 2 Oxygen Delivery Method Nasal Cannula Weight: 73 kg Body Mass Index (BMI) 33.0 Intake and Output for Last 24 Hours 10/07/18 10/08/18 10/09/18 23:59 23:59 23:59 Intake Total 1899 / 1899 825.7 / 825.7 Balance 1899 / 1899 825.7 / 825.7 Microbiology Past 72 Hours 10/04/18 04:30 Gram Stain - Final Sputum, Induced/Lukens Respiratory Culture - Final Mixed normal respiratory gera. No Streptococcus pneumoniae, beta-hemolytic Streptococcus or Staphylococcus aureus isolated. Discharge Activity: Return to Normal Activity Home Medications: Medications to take at Discharge Albuterol IH (ProAir) [Proair Hfa] 2 puff INHALATION PRN PRN 06/01/13 Atorvastatin Calcium [Lipitor] 80 mg PO QHS 06/01/13 Clopidogrel Bisulfate [Plavix] 75 mg PO DAILY 06/01/13 Fluoxetine [Prozac] 40 mg PO BID 06/01/13 Metoprolol Tartrate [Lopressor (beta jackie)] 25 mg PO BID 06/01/13 alendronate 70 mg tablet 70 mg PO QWEEK 07/20/18 omeprazole 20 mg capsule,delayed release 40 mg PO DAILY cap 07/20/18 tiotropium bromide 2.5 mcg/actuation mist for inhalation 2 puff INHALATION DAILY 07/20/18 Abaloparatide [Tymlos] 1.56 ml SQ DAILY 09/30/18 Bupropion HCl [Bupropion Xl] 300 mg PO DAILY 09/30/18 Calcium Carbonate [Calcium] 600 mg PO DAILY 09/30/18 Docusate Sodium [Stool Softener] 100 mg PO DAILY 09/30/18 Levothyroxine [Synthroid] 88 mcg PO DAILY 09/30/18 Oxycodone HCl/Acetaminophen [Percocet 7.5-325 mg Tablet] 1 - 2 tablet PO Q6H PRN PRN 09/30/18 Trazodone ER [Oleptro Er] 150 mg PO DAILY 09/30/18 Aspirin [Aspirin, Baby] 81 mg PO DAILY@0800 tab.chew 10/08/18 Cefdinir [Omnicef [equiv]] 600 mg PO DAILY #6 capsule 10/08/18 Following Prescrptions Were Given to Patient: Cefdinir [Omnicef [equiv]] 600 mg PO DAILY #6 capsule Primary Care Physician: Chrystal Michel DO [Primary Care Provider] - Please follow up with your Primary Care Physician in: in 1-2 weeks Please Follow Up With: Chrystal Michel DO Disposition: Home with Home Health Minutes spent on discharge:: 32 Patient Condition:: Stable Medical Necessity - Tobacco Use Smoking Status: Heavy Smoker (>10/day) Tobacco Use: Cigarettes Meaningful Use Info Meaningful Use Diagnoses (Choose all that apply): None applicable Code Visit Inpatient E&M: 49762 Disch Hosp
== END 2018-10-08 14:27 | disposition home or self-care (01) | DRG 208 ==
LOC: ED 09:51 → PCU 10-01 07:19 → ICU 10-03 23:32 → PCU 10-04 11:25 → ICU 10-08 09:27
PROVIDERS: Family Medicine; Hospitalist; Internal Medicine Critical Care Medicine; Admitting Provider Student in an Organized Health Care Education/Training Program; Emergency Provider Emergency Medicine; Family Provider Family Medicine; PCP Family Medicine; Visit Provider Internal Medicine
DX: J15.9 Unspecified bacterial pneumonia (principal); J96.21 Acute and chronic respiratory failure with hypoxia; J96.22 Acute and chronic respiratory failure with hypercapnia; I10 Essential (primary) hypertension; F41.9 Anxiety disorder, unspecified; F32.9 Major depressive disorder, single episode, unspecified; I25.10 Atherosclerotic heart disease of native coronary artery without angina pectoris; G47.33 Obstructive sleep apnea (adult) (pediatric); M47.816 Spondylosis without myelopathy or radiculopathy, lumbar region; K21.9 Gastro-esophageal reflux disease without esophagitis; F17.210 Nicotine dependence, cigarettes, uncomplicated; G89.29 Other chronic pain; Z79.899 Other long term (current) drug therapy; E89.0 Postprocedural hypothyroidism; R53.83 Other fatigue; T40.605A Adverse effect of unspecified narcotics, initial encounter
CPT/HCPCS: 31500; 31720; 36415; 36600; 70450; 71045; 71046; 71275; 74018; 80048; 81001; 82140; 82550; 82803; 82962; 83605; 83735; 83880; 84100; 84478; 84484; 85025; 85610; 85730; 87040; 87070; 87086; 87205; 87449; 87641; 93005; 93306; 94002; 94003; 94640; 94660; 94667; 94668; 95831; 97110; 97162; 97165; 97530; 97802; 99251; 99284; 99406; J7030; J7040; J7050; J7120; Q9957; Q9967; A4216; C8929; G0463; J0475; J2274; J2405; J3490

== ENCOUNTER 2018-11-03 11:54 | Emergency (ER) | payer BC, SELFPAY ==
[2018-09-30 10:49] VITALS: BMI 33.0
[2018-11-03 11:55] VITALS: BP 153/87; PULSE 91; RESP 17; TEMP 35.6; O2SAT 93; BMI 30.7
--- NOTE | 2018-11-03 12:16 | RAD_ITS ---
STUDY: X-RAY - ACUTE ABDOMINAL SERIES REASON FOR EXAM: Female, 63 years old. One-week history of constipation. TECHNIQUE: Single view of the chest. Supine, and decubitus view(s) of the abdomen were obtained. COMPARISON: Comparison is made with prior study dated October 04, 2018. FINDINGS: Stable mild elevation of the right hemidiaphragm. Healing right rib fractures. Normal size heart. Normal mediastinum and gage. Normal visualized pulmonary arteries. Normal visualized aortic arch and descending thoracic aorta. There is a moderate amount of colonic fecal material. The soft tissue structures of the abdomen and pelvis are unremarkable. Prior screw and rinku fixation involving the lower thoracic and lumbar spines. Spinal stimulator device is seen. RAD/Acute Abdomen Inc Chest IMPRESSION: Moderate amount of fecal material is seen in the colon. Electronically Signed: Luis Antonio Mota, at 13:47 EDT , Service support ,
--- NOTE | 2018-11-03 12:16 | ED.VIS.GEN ---
History of Present Illness Chief Complaint: Constipation Informant: Patient, Significant Other Onset: Weeks Context: Sudden Onset Timing: Continuous Quality: No BM x1 week Location: GI Current Severity: Mild Maximum Severity: Moderate Worsened by: Attempt to eat or drink anything Relieved by: Nothing Associated Symptoms: Abdominal discomfort Narrative: Patient is a 63-year-old woman who presents with abdominal pain, distention with no BM x1 week. She states she got no results with suppository, enema and mag citrate. She states she passed some gas after enema. She denies fever, chills or night sweats. She now reports nausea and vomiting. She has no history of bowel obstruction. She had history of recent gallbladder surgery. She denies dysuria, frequency, urgency or hematuria. She denies hematemesis, melena hematochezia. Prior similar symptoms: No Recent Illness/Hospitalization: Yes - Past Medical History (1) Anxiety Status: Chronic (2) Chronic back pain Status: Chronic (3) Depression Status: Chronic (4) GERD (gastroesophageal reflux disease) Status: Chronic (5) HTN (hypertension) Status: Chronic (6) Heart disease Status: Chronic (7) Hypothyroidism Status: Chronic (8) Spinal stenosis Status: Chronic Past Medical History - Allergies and Home Meds Allergies/Adverse Reactions: Allergies cefaclor [From Ceclor] Allergy (Verified 11/03/18 11:55) Itching clarithromycin Allergy (Verified 11/03/18 11:55) Hives doxycycline Allergy (Verified 11/03/18 11:55) Itching Penicillins Allergy (Verified 11/03/18 11:55) Hives Sulfa (Sulfonamide Antibiotics) Allergy (Verified 11/03/18 11:55) Hives Primary Care Physician: Chrystal Michel DO [Primary Care Provider] - Surgical History: - - Cholecystectomy, hysterectomy, orthopedic surgery with amputation BKA right Lives: Spouse/ Significant Other Smoking Status: Heavy Smoker (>10/day) Alcohol: None Drugs: None Review of Systems General: Denies: Chills, Fever, Malaise, Subjective, Sweats Eyes: Denies: Visual changes - bilaterally, Diplopia ENT: Denies: Rhinorrhea, Sore throat Cardiovascular: Denies: Chest pain, Palpitations Respiratory: Denies: Dyspnea, Cough, Dyspnea on exertion Gastrointestinal: Reports: Abdominal pain, Nausea, Vomiting, Constipation. Denies: Diarrhea, Melena, Hematochezia Genitourinary: Denies: Dysuria, Hematuria, Frequency Musculoskeletal: Denies: Back pain, Extremity Pain Skin: Denies: Rash, Wounds Neurological: Denies: Headache, Weakness, Parasthesia, Numbness Psych: Reports: Depression Hematologic: Denies: Easy bruising, Easy bleeding Physical Exam Vital Signs/Narrative: Vital Signs Temp Pulse Resp BP Pulse Ox 11/03/18 11:55 96.0 F L 91 17 153/87 H 93 Inital Vital Signs reviewed: Yes General: Well nourished, Well developed, No Acute Distress Head: Normocephalic, Atraumatic Eyes: Perrl, EOMI ENT: Moist mucous membranes, No rhinorrhea Neck: Supple, Nontender Cardiovascular: Regular rate, Regular rhythm, No murmurs Respiratory: No distress, CTA bilaterally, Chest nontender Abdomen: Soft, Tender, Guarding, Hyperactive bowel sounds, Hypoactive bowel sounds, Ventral hernia, Hernia reducible. Negative for: Rebound tenderness Rectal: - - No stool noted Back: Nontender, Normal Inspection. Negative for: CVA tenderness Extremities: Nontender, No edema Skin: Normal color, No rash Neurological: Alert, Oriented x3, Cranial nerves II-XII grossly intact, Normal Strength, Normal Sensation Psychological: Normal affect, Normal Mood Diagnostic/Tx/Re-eval Impressions Acute Abdomen Series 11/03/18 12:16 IMPRESSION: Moderate amount of fecal material is seen in the colon. Electronically Signed: Luis Antonio Mota, at 13:47 EDT , Service support , 11/03/18 12:16 Acute Abdomen Inc Chest [RAD] Stat 11/03/18 13:48 Abdomen/Pel W ORAL Cont Only [CT] Stat Laboratory Results 11/03/18 11/03/18 12:45 12:45 WBC 12.2 H RBC 4.59 Hgb 12.9 Hct 41.1 MCV 89.5 MCH 28.1 MCHC 31.4 L RDW 16.2 H RDW Differential 53.3 H Plt Count 355 MPV 9.9 Immature Gran % (Auto) 0.100 Neut % (Auto) 58.4 Lymph % (Auto) 31.4 [place] % (Auto) 7.9 Eos % (Auto) 2.0 Baso % (Auto) 0.2 Absolute Neuts (auto) 7.2 Absolute Lymphs (auto) 3.84 Total Counted Not Reportable Sodium 140 Potassium 3.6 Chloride 101 Carbon Dioxide 31.0 Anion Gap 8 BUN 16 Creatinine 0.97 Estim Creat Clear Calc 62.49 Est GFR (MDRD) Af Amer 74 Est GFR (MDRD) Non-Af 61 BUN/Creatinine Ratio 16.4 Glucose 127 H Calcium 9.6 - Medical Decision Making With history of prior abdominal surgery, distention, no BM and nausea vomiting need to evaluate for partial small bowel obstruction. There is a ventral incisional hernia noted midline. The hernia is reducible. Work-up consisted of abdominal series, appropriate blood work. She was medicated with Zofran and morphine. Patient was informed that a CT was ordered. Skin is to be performed at 1530. Awaiting results. And was obtained because of concern for obstruction with history of no bowel movement for 1 week and no flatus. ED Disposition - Plan for ED Patient: Diagnosis: Abdominal pain, Vomiting Referrals: Chrystal Michel DO [Primary Care Provider] - 1-2 Days if not improving
[2018-11-03] MEDS: Morphine 4 MG/ML Syringe IV (12:53)
[2018-11-03] MEDS: Ondansetron 4 MG/2 ML Vial IV (12:53)
[2018-11-03] MEDS: 0.9% Normal Saline 1,000 ML 125 ML IV (12:53)
[2018-11-03 13:07] LABS: Absolute Lymphocyte Count 3.84 X10^3/ul (0.83-4.51); Absolute Neutrophil Count 7.2 X10^3/uL (2.0-7.7); Basophil# 0.02 X10^3/uL; Basophil% 0.2 % (0-1); Eosinophil# 0.24 X10^3/uL; Hematocrit 41.1 % (37-47); Hemoglobin 12.9 g/dl (12.0-15.0); Lymphocyte # 3.84 X10^3/ul (4.0); Lymphocyte % 31.4 % (19-41); Mean Corp Hgb Conc 31.4 g/gl (32-36); Mean Corpuscular Hgb 28.1 pg (27.0-32.0); Mean Corpuscular Volume 89.5 fL (81-99); Mean Platelet Vol. 9.9 fl (6.2-12.0); Monocyte# 0.96 X10^3/uL; Monocyte% 7.9 % (0-10); Neutrophil # 7.15 X10^3/uL (2.7-7.7); Neutrophil % 58.4 % (47-70); Platelet Count 355 K/mm3 (150-450); RBC Distribution Width CV 16.2 % (11.6-14.6); RBC Distribution Width SD 53.3 fl (35.1-43.9); Red Blood Count 4.59 M/mm3 (4.2-5.4); White Blood Count 12.2 K/mm3 (4.4-11.0)
[2018-11-03 13:08] LABS: POSITIVE COUNT NO; POSITIVE DIFFERENTIAL NO; POSITIVE MORPHOLOGY NO
[2018-11-03 13:21] LABS: Anion Gap 8 (5-15); BUN 16 mg/dL (7-18); BUN/Creat Ratio 16.4 RATIO (10-20); Calcium,Total 9.6 mg/dL (8.5-10.1); Chloride 101 mmol/L (98-107); Creatinine, Serum 0.97 mg/dL (0.55-1.02); EST Glomerular Filtration Rate 61 mL/min (>60); Est Glom Filt Rate - Afr Amer 74 mL/min (>60); Estimated Creatinine Clearance 62.49 ml/min; Glucose 127 mg/dL (74-106); Potassium 3.6 mmol/L (3.5-5.1); Sodium Level 140 mmol/L (136-145)
--- NOTE | 2018-11-03 13:48 | CT_ITS ---
STUDY: CT ABDOMEN AND PELVIS WITHOUT CONTRAST REASON FOR EXAM: Female, 63 years old. One week history of constipation. Multiple abdominal surgeries. RADIATION DOSAGE (If Supplied By Facility): CTDIvol = ( 16.77 ) mGy, DLP = ( 733.32 ) mGycm TECHNIQUE: Transaxial images were obtained from the dome of the diaphragm to the symphysis pubis with oral contrast, and without intravenous contrast. Sagittal and coronal images were reconstructed. Individualized dose optimization techniques were used for this CT. COMPARISON: None. FINDINGS: Patchy infiltrate in the right middle lobe as well as in the right lower lobe. Coronary artery calcification and stent placement. Normal liver. There are surgical clips in the gallbladder fossa consistent with a prior cholecystectomy. Normal spleen. Normal pancreas. Normal bilateral adrenal glands. Normal right kidney. Normal left kidney. There is a small hiatal hernia. Normal small intestine. There are multiple colonic diverticula consistent with diverticulosis. A moderate amount of fecal material is seen throughout the colon. There is non-visualization of the appendix. There is diffuse atherosclerotic calcification of the abdominal aorta and its major visceral branches, without a demonstrated aneurysm. Normal inferior vena cava. Normal retroperitoneum. Normal urinary bladder. Normal abdominal wall. Multilevel spinal fusion with almost complete collapse of the T12 vertebral body. Diffuse demineralization of the lumbar vertebrae. CT/Abdomen/Pel W ORAL Cont Only IMPRESSION: Right basilar infiltrates. Moderate amount of fecal material is seen in the colon. Electronically Signed: Luis Antonio Mota, at 15:48 EDT , Service support ,
[2018-11-03] MEDS: Metoclopramide 10 MG/2 ML Vial 5 MG IV (14:05)
[2018-11-03 14:08] VITALS: BP 141/62; PULSE 85; RESP 18; O2SAT 96
[2018-11-03 15:16] VITALS: BP 129/59; PULSE 84; RESP 18; O2SAT 96
--- NOTE | 2018-11-03 15:53 | ED.VISSUMM ---
- ER Visit Summary Date of Service: 11/03/18 Chief Complaint: [] History of Present Illness: The patient is a 63 F [] Physical Examination: [] Test Results: [] Emergency Department Course and Treatment: [] Treatment Plan: [] Disposition: [] Impression: [] This note was generated with [employer] dictation software. It may contain incorrect words, spelling, and punctuation that were not noted in review of the chart prior to signing ED Disposition - Plan for ED Patient: Disposition: Home or Assisted Living Diagnosis: Abdominal pain, Vomiting, Constipation Instructions: CONSTIPATION (Adult) Referrals: Chrystal Michel DO [Primary Care Provider] - 1-2 Days if not improving Additional Instructions: Recommend drinking 10 ounces of mag citrate tomorrow morning. 4 hours later drink a glass of MiraLAX. Drink a glass of MiraLAX every 1-2 hours until you have results.
[2018-11-03 16:01] VITALS: BP 125/59; PULSE 84; RESP 18; O2SAT 96
--- NOTE | 2018-11-03 16:02 | ED.RN ---
IV DC'ED, CATHETER INTACT, SMALL GAUZE DRESSING PLACED. DISCHARGE INSTRUCTIONS GIVEN TO AND REVIEWED WITH PATIENT, PATIENT DENIES QUESTIONS OR CONCERNS AND VOICES UNDERSTANDING OF DISCHARGE INSTRUCTIONS.
== END 2018-11-03 16:03 | disposition home or self-care (01) ==
PROVIDERS: Emergency Provider Emergency Medicine; Family Provider Family Medicine; PCP Family Medicine
DX: K59.00 Constipation, unspecified (principal); R10.9 Unspecified abdominal pain; R11.2 Nausea with vomiting, unspecified; K43.2 Incisional hernia without obstruction or gangrene; F41.9 Anxiety disorder, unspecified; M54.9 Dorsalgia, unspecified; G89.29 Other chronic pain; F32.9 Major depressive disorder, single episode, unspecified; K21.9 Gastro-esophageal reflux disease without esophagitis; I11.9 Hypertensive heart disease without heart failure; E03.9 Hypothyroidism, unspecified; M48.00 Spinal stenosis, site unspecified; Z90.49 Acquired absence of other specified parts of digestive tract; Z79.82 Long term (current) use of aspirin; Z79.02 Long term (current) use of antithrombotics/antiplatelets; Z79.899 Other long term (current) drug therapy; F17.200 Nicotine dependence, unspecified, uncomplicated
CPT/HCPCS: 74022; 74176; 80048; 85025; 96361; 96374; 96375; 99283; J7030; A4216; J2405

== ENCOUNTER → 2018-11-10 | Outpatient (CLI) | payer BC, SELFPAY ==
[2018-11-03 11:55] VITALS: BMI 30.7
[2018-11-10 15:52] LABS: Free T3 1.5 pg/mL (2.18-3.98); T4 Free Direct 1.06 ng/dL (0.76-1.46); Thyroid Stim Hormone (TSH) 2.53 uIU/mL (0.358-3.74)
== END | disposition home or self-care (01) ==
LOC: LAB.FUTURE 11:47
PROVIDERS: Family Provider Family Medicine; PCP Family Medicine; Visit Provider Family Medicine
DX: E03.9 Hypothyroidism, unspecified (principal)
CPT/HCPCS: 36415; 84439; 84443; 84481

== ENCOUNTER 2018-12-20 09:32 | Day surgery (SDC) | payer BC, SELFPAY ==
[2018-12-01 10:37] VITALS: BMI 30.7
--- NOTE | 2018-12-02 12:12 | HP_ITS ---
Intake Vital Signs 12/01/18 Body Mass Index (BMI) 30.7 12/01/18 Height 4 ft 10 in 12/01/18 Weight: 158 lb 12/01/18 Body Mass Index (BMI) 33.0 12/01/18 Blood Pressure 101/58 L 12/01/18 Blood Pressure Location Rt brachial 12/01/18 Respiratory Rate 16 12/01/18 Pulse Rate 61 12/01/18 Pulse Source Monitor 12/01/18 Temperature 97.9 F 12/01/18 Temperature Source Oral 12/01/18 Pulse Ox 89 12/01/18 Oxygen Delivery Method room air 11/26/18 Body Mass Index (BMI) 30.7 Intake Visit Reasons: Epigastric/Umbilical Hernia Chief Complaint: sob, cough Is patient in pain?: Yes (RLQ and Umbilicus) Pain scale (1-10): 5 Allergies cefaclor [From Ceclor] Allergy (Verified 12/01/18 10:37) Itching clarithromycin Allergy (Verified 12/01/18 10:37) Hives doxycycline Allergy (Verified 12/01/18 10:37) Itching Penicillins Allergy (Verified 12/01/18 10:37) Hives Sulfa (Sulfonamide Antibiotics) Allergy (Verified 12/01/18 10:37) Hives biotin Adverse Reaction (Unknown, Verified 12/01/18 10:37) Unknown Medications Albuterol IH (ProAir) [Proair Hfa] 2 puff INHALATION PRN PRN 06/01/13 [History Confirmed 12/01/18] Atorvastatin Calcium [Lipitor] 80 mg PO QHS 06/01/13 [History Confirmed 12/01/18] Clopidogrel Bisulfate [Plavix] 75 mg PO DAILY 06/01/13 [History Confirmed 12/01/18] Metoprolol Tartrate [Lopressor (beta jackie)] 25 mg PO BID 06/01/13 [History Confirmed 12/01/18] alendronate 70 mg tablet 70 mg PO QWEEK 07/20/18 [History Confirmed 12/01/18] tiotropium bromide 2.5 mcg/actuation mist for inhalation 2 puff INHALATION DAILY 07/20/18 [History Confirmed 12/01/18] Abaloparatide [Tymlos] 1.56 ml SQ DAILY 09/30/18 [History Confirmed 12/01/18] Calcium Carbonate [Calcium] 600 mg PO DAILY 09/30/18 [History Confirmed 12/01/18] Aspirin [Aspirin, Baby] 81 mg PO DAILY@0800 tab.chew 10/08/18 [Rx Confirmed 12/01/18] azelastine 137 mcg (0.1 %) nasal spray aerosol 2 spray INTRANASAL BID 11/17/18 [History Confirmed 12/01/18] cholecalciferol (vitamin D3) 1,000 unit capsule 1,000 unit PO DAILY 11/17/18 [History Confirmed 12/01/18] furosemide 40 mg tablet 40 mg PO DAILY 11/17/18 [History Confirmed 12/01/18] ipratropium-albuterol 0.5 mg-3 mg(2.5 mg base)/3 mL nebulization soln 3 ml INHALATION Q8H 11/17/18 [History Confirmed 12/01/18] levothyroxine 88 mcg capsule 88 mcg PO DAILY 11/17/18 [History Confirmed 12/01/18] loratadine 10 mg capsule 10 mg PO DAILY 11/17/18 [History Confirmed 12/01/18] lorazepam 1 mg tablet 1 mg PO BID-TID 11/17/18 [History Confirmed 12/01/18] mometasone-formoterol HFA 100 mcg-5 mcg/actuation aerosol inhaler 2 puff INHALATION BID 11/17/18 [History Confirmed 12/01/18] bspxqrhcrszp-dahhrpcn-niswgu tablet 1 tab PO DAILY 11/17/18 [History Confirmed 12/01/18] zolpidem ER 12.5 mg tablet,extended release,multiphase 12.5 mg PO QHS 11/17/18 [History Confirmed 12/01/18] duloxetine 60 mg capsule,delayed release 90 mg PO DAILY cap 12/01/18 [History Confirmed 12/01/18] fluoxetine 40 mg capsule 40 mg PO DAILY 12/01/18 [History Confirmed 12/01/18] hydroxyzine HCl 50 mg tablet 50 mg PO QHS PRN 12/01/18 [History Confirmed 12/01/18] linaclotide 72 mcg capsule 72 mcg PO DAILY 12/01/18 [History Confirmed 12/01/18] ondansetron 8 mg oral soluble film 8 mg PO Q8H PRN 12/01/18 [History Confirmed 12/01/18] pantoprazole 40 mg tablet,delayed release 40 mg PO DAILY #30 tab 12/01/18 [Rx Confirmed 12/01/18] theophylline ER 400 mg capsule,extended release 24 hr 400 mg PO DAILY 12/01/18 [History Confirmed 12/01/18] [facility] Medical History TIA (transient ischemic attack) (Acute) Osteoporosis (Acute) Osteoarthritis (Acute) Thyroid disorder (Acute) Diverticulitis (Acute) Sleep apnea (Acute) History of pneumonia (Acute) COPD (chronic obstructive pulmonary disease) (Chronic) History of bronchitis (Acute) Asthma (Acute) HTN (hypertension) (Chronic) Depression (Chronic) Anxiety (Chronic) Nausea and vomiting (Resolved) GERD (gastroesophageal reflux disease) (Chronic) Heart disease (Chronic) spinal stimulator (Chronic) Spinal stenosis (Chronic) Chronic back pain (Chronic) Hypothyroidism (Chronic) History of heart attack (Resolved) Surgical History Hx of cholecystectomy (Acute) History of esophagogastroduodenoscopy (EGD) (Acute ~07/2018) Previous back surgery (Inactive) S/P hysterectomy (Inactive) S/P carpal tunnel release (Inactive) S/P knee surgery (Inactive) S/P correction of deviated nasal septum (Inactive) Status post thyroidectomy (Inactive) H/O heart artery stent (Inactive) Status post amputation of right foot (Inactive) Family History Father Asthma Heart disease Grandmother Breast cancer Diabetes Mother Heart disease COPD (chronic obstructive pulmonary disease) Other Cancer Social History (Updated 12/02/18 @ 12:18 by Chelsi Cazares MD) Smoking Status: Current every day smoker tobacco type: cigarettes second hand exposure: Yes alcohol intake: never substance use type: does not use caffeine: Yes what type of physical activity do you participate in: none frequency: does not exercise HPI HPI HPI: TAJ LÓPEZRAFFAELEYOEL, is a 63 F who presents to the office today for HPI HPI Surgical H&P: Yes HPI: TAJ BLANK, is a 63 F who presents to the office today for abdominal hernia, pain at hernia, nausea and vomiting. Patient has had a long history of nausea and vomiting earlier this year she did undergo an EGD as well as lap scopic cholecystectomy and she comes in to the office currently with an incisional hernia. Patient states the pain at hernia site currently is a 5/10 it does come and go she had it for about a month. Patient also has nausea and vomiting. Patient does have issues with constipation but she is currently on Linzess once a day. Patient does admit to increased belching as well as reflux symptoms on the omeprazole 40 mg p.o. daily she found the last 2 months. Patient states she is previously had a colonoscopy that about 4 years ago unsure who did it possibly Dr. Morgan. Patient states he was negative. ROS General General: Yes weight change (Gain) and fatigue Gastro Gastrointestinal: Yes abdominal pain, Yes nausea or vomiting, No diarrhea, Yes constipation, No blood in stool, Yes acid reflux, No hemorrhoids, No ulcers, No gallbladder problem, No black,tarry stools Exam Const General: cooperative, comfortable, no acute distress Resp Effort & Inspection: normal respiratory effort Cardio Rate: regular rate GI Inspection: non-distended Palpation: soft, no guarding, hernia (Supraumbilical, reducible), other (Right lower quadrant nerve stimulator in the subcutaneous tissue) Extrem Other: Right below the knee amputation Assessment & Plan Problems 1. Incisional hernia K43.2 2. Bilious vomiting with nausea R11.14 Plan She does have a long history of nausea and vomiting along with reflux and did have her gallbladder removed earlier this year as well as an EGD. Patient continues to have nausea and vomiting after her cholecystectomy as well. She is on omeprazole and still has symptoms of reflux. We will switch patient to Protonix 40 mg p.o. daily to see if that makes any difference. Did discuss with patient that likely that hernia repair would not resolve the nausea and vomiting. Plan to do an open incisional hernia repair with mesh possible laparoscopic, will have patient hold her Plavix. Reviewed the procedure with the patient including the risks, including but not limited to infection, bleeding, injury to the small bowel, and recurrence. All questions were answered. Also, discussed risk of strangulated bowel. Cautioned the patient that if she has N/V, ABD distention, increased umbilical pain or changes of the skin over the hernia she needs to go to the ER. Currently the hernia is reducible and CAT scan showed only abdominal fat in the hernia. Addendum: Patient's last colonoscopy was in June 2012 due to some rectal bleeding which was negative as far as it no polyps seen only diverticulosis in the sigmoid colon by Dr. Eddie Cazares M.D. Pager: [phone] [facility] [address] [place] [address], [facility], [address] [place] [address] Office: [phone] Medications New: pantoprazole 40 mg PO DAILY 30 tabs 2RF linaclotide (Linzess) 72 mcg PO DAILY Plan Detail Follow Up We will schedule incisional hernia repair Coding Level of Care Code Off vis,est,level 3 Diagnoses Incisional hernia K43.2 Bilious vomiting with nausea R11.14 ??Vomiting type: bilious vomiting 12/02/18 1219 <Electronically signed by Chelsi Marsh am, MD> Date _ Chelsi Cazares MD I have examined the patient the following changes are noted: Patient was 89/84% on room air in AC. Patient was brought 2 L nasal cannula. Patient does use CPAP nightly and also uses oxygen at home as needed, and she regularly checks her O2 sat if not up to about 92 she will wear the oxygen. Patient has been in no further questions about the procedure.
[2018-12-20 10:05] VITALS: BP 103/53; PULSE 64; RESP 16; TEMP 36.6; O2SAT 84; BMI 31.4
[2018-12-20] MEDS: Lactated Ringers 1,000 ML 100 ML IV ×2 (10:30→12:30)
--- NOTE | 2018-12-20 10:34 | SUR.PREOP ---
pt and note that she normally runs 84-86% spo2 on room air and uses oxygen at night. pt placed on 2l o2 and spo2 went to 96%. Dr. Clive whiteside
--- NOTE | 2018-12-20 11:00 | HERN_PTH ---
PATIENT: TAJ BLANK [place] [facility] [place][id number] AGE/SX: 63/F ROOM: RE12/20/[address]: Dr. Chelsi Cazares MD : [id number] BED: DIS: 12/20/2018 SPEC #: [id number] RECD: 12/20/18 13:38 STATUS: MADHU REShmuel #: [id number] DAYDAY: 12/20/18 11:[address]: Chelsi Cazares DEPT: SURGICAL PATHOLOGY RECD BY: Zach Edmonds ENTERED: 12/20/18 13:54 SP TYPE: Hernia OTHR DR: Dr. Chrystal Michel, DO Tissues: HERNIA Procedures: Surgery Specimen Level II HEADER OPERATION: Open incisional hernia repair with mesh PRE-OP DIAGNOSIS: Incisional hernia POST-OP DIAGNOSIS: Incarcerated incisional hernia TISSUE SUBMITTED: Hernia sac MICROSCOPIC DIAGNOSIS Hernia sac: Fragments of fibroadipose and fibroconnective tissue, consistent with hernia sac with focal chronic inflammation and foreign body giant cell reaction. MIGUEL:srinivasan 12/21/18 MICROSCOPIC DESCRIPTION Slides are reviewed. GROSS DESCRIPTION Received is one container labeled with the patient name and designated hernia sac. The specimen consists of two irregular fragments of soft tissue that in aggregate measure 6.5 x 4 x 0.5 cm. No mass lesion is identified. [employer] sections are submitted in 1 cassette. /MIGUEL:srinivasan 12/20/18 TC: 5 CPT: 69859
--- NOTE | 2018-12-20 12:41 | OP.PCM_ITS ---
Report of Operation Date of Procedure: 12/20/18 Pre-Operative Diagnosis: Incisional hernia Post-Operative Diagnosis: Incarcerated incisional hernia Surgery/Procedure Performed:: Incarcerated incisional hernia repair with mesh pneumatic drum sander: Citlaly Mccray Type of Anesthesia:: General/Supplemental Anesthesiologist: Cody Cifuentes Special Medications: Clindamycin 900mg IV x1 Specimen's removed: Hernia sac Estimated Blood Loss (mL): 10 cc Fluids Replaced: 1200 cc Description of Procedure: Patient was brought into the room placed supine on the operating table. Correct patient, procedure, site, positioning, special, was verified prior to procedure. General anesthesia was induced. The abdomen was prepped draped in usual sterile fashion. Previous supraumbilical incision was re-incised with a 15 blade scalpel. This was deepened with electrocautery. The fascia around the hernia defect was cleared and the hernia defect measured 3 cm x [address] hernia patch 8 cm diameter (Lot [id number] ref [id number]) was chosen. Mesh was placed and assured to be laying flat. 1-0 Nurolon sutures to secure the tails of the mesh laterally and interrupted sutures were also placed superior and inferiorly to secure the mesh to the fascia. 1-0 Nurolon suture was placed to close the fascia in a [id number] x2. The wound was irrigated with saline. Hemostasis was assured. The incision was closed with 3-0 Vicryl subdermal interrupted sutures and the skin was closed with interrupted 4-0 Monocryl sutures. Steri-Strips and Tegaderm and OpSite were placed. Patient was extubated. Patient tolerated procedure well and was taken to the postanesthesia care unit in stable condition. Grafts/Implants Used: Ventralex ST hernia patch 8 cm diameter Lot [id number] ref [id number] - Complications none
--- NOTE | 2018-12-20 12:46 | DCINST_ITS ---
Discharge Diet: Light diet - advance as tolerated Discharge Activity: May not drive while taking narcotic pain medications. May shower in (days): 1 Lifting Restrictions: No lifting over 20 pounds x 3 weeks Call your doctor if your incision/area has: Continuous Slow Oozing, Sudden Increased Bleeding, Increased Pain/ Swelling, Increased Redness, Foul Smelling Discharge, Swelling at the incision site Call your doctor if you observe: Fever of 101 or Higher Allergies/Adverse Reactions: Allergies cefaclor [From Ceclor] Allergy (Verified 12/14/18 13:54) Itching clarithromycin Allergy (Verified 12/14/18 13:54) Hives doxycycline Allergy (Verified 12/14/18 13:54) Itching Penicillins Allergy (Verified 12/14/18 13:54) Hives Sulfa (Sulfonamide Antibiotics) Allergy (Verified 12/14/18 13:54) Hives biotin Adverse Reaction (Unknown, Verified 12/14/18 13:54) Unknown Medications to take at Discharge Albuterol IH (ProAir) [Proair Hfa] 2 puff INHALATION PRN PRN 06/01/13 Atorvastatin Calcium [Lipitor] 80 mg PO QHS 06/01/13 Clopidogrel Bisulfate [Plavix] 75 mg PO DAILY 06/01/13 Metoprolol Tartrate [Lopressor (beta jackie)] 25 mg PO BID 06/01/13 alendronate 70 mg tablet 70 mg PO QWEEK 07/20/18 tiotropium bromide 2.5 mcg/actuation mist for inhalation 2 puff INHALATION DAILY 07/20/18 Abaloparatide [Tymlos] 1.56 ml SQ DAILY 09/30/18 Calcium Carbonate [Calcium] 600 mg PO DAILY 09/30/18 Aspirin [Aspirin, Baby] 81 mg PO DAILY@0800 tab.chew 10/08/18 cholecalciferol (vitamin D3) 1,000 unit capsule 1,000 unit PO DAILY 11/17/18 furosemide 40 mg tablet 40 mg PO DAILY 11/17/18 ipratropium-albuterol 0.5 mg-3 mg(2.5 mg base)/3 mL nebulization soln 3 ml INHALATION Q8H PRN 11/17/18 levothyroxine 88 mcg capsule 88 mcg PO DAILY 11/17/18 loratadine 10 mg capsule 10 mg PO DAILY PRN 11/17/18 lorazepam 1 mg tablet 1 mg PO BID-TID PRN 11/17/18 mometasone-formoterol HFA 100 mcg-5 mcg/actuation aerosol inhaler 2 puff INHALATION DAILY 11/17/18 zolpidem ER 12.5 mg tablet,extended release,multiphase 12.5 mg PO QHS 11/17/18 duloxetine 60 mg capsule,delayed release 90 mg PO DAILY cap 12/01/18 fluoxetine 40 mg capsule 40 mg PO DAILY 12/01/18 hydroxyzine HCl 50 mg tablet 50 mg PO QHS PRN 12/01/18 linaclotide 72 mcg capsule 72 mcg PO DAILY 12/01/18 ondansetron 8 mg oral soluble film 8 mg PO Q8H PRN 12/01/18 theophylline ER 400 mg capsule,extended release 24 hr 400 mg PO DAILY 12/01/18 Pantoprazole Sodium 40 mg PO DAILY 12/14/18 Oxycodone HCl/Acetaminophen [Percocet 5/325] 1 - 2 tab PO Q6H PRN PRN 4 Days #25 tab 12/20/18 The following prescriptions were given: Oxycodone HCl/Acetaminophen [Percocet 5/325] 1 - 2 tab PO Q6H PRN PRN 4 Days #25 tab PRN Reason: Pain Transmission Status: Received by [facility] Primary Care Physician: Chrystal Michel DO [Primary Care Provider] - Test Results: Test results from this visit will be discussed in further detail at your follow- up appointment, if applicable. Please Follow Up With: Chelsi Cazares MD - After 5 PM and on the weekends please call [phone] with any concerns When: Call the office for follow-up appointment 2 weeks. Proposed Discharge Date: 12/20/18
[2018-12-20] MEDS: Bupiv/Epi 0.5% Mpf 30 ML Vial (12:50)
[2018-12-20 13:08] VITALS: BP 103/53; BP 112/86; PULSE 76; RESP 18; TEMP 36.8; O2SAT 96
[2018-12-20 13:15] VITALS: BP 103/53; BP 131/60; PULSE 76; RESP 18; O2SAT 97
[2018-12-20 13:30] VITALS: BP 103/53; BP 130/63; PULSE 75; RESP 18; O2SAT 92
[2018-12-20 13:40] VITALS: BP 103/53; BP 132/63; PULSE 77; RESP 18; TEMP 36.7; O2SAT 93
[2018-12-20 14:45] VITALS: BP 103/53; BP 119/82; PULSE 85; RESP 16; TEMP 36.7; O2SAT 93
== END 2018-12-20 14:58 | disposition home or self-care (01) ==
LOC: SDC 09:33 → AC 09:33
PROVIDERS: Family Provider Family Medicine; PCP Family Medicine; Referring Provider Surgery; Visit Provider Surgery
PROC: (CPT 49561; principal; 2018-12-20 10:45)
DX: K43.0 Incisional hernia with obstruction, without gangrene (principal); K59.00 Constipation, unspecified; M81.0 Age-related osteoporosis without current pathological fracture; G47.30 Sleep apnea, unspecified; J44.9 Chronic obstructive pulmonary disease, unspecified; F32.9 Major depressive disorder, single episode, unspecified; F41.9 Anxiety disorder, unspecified; K21.9 Gastro-esophageal reflux disease without esophagitis; M48.00 Spinal stenosis, site unspecified; E03.9 Hypothyroidism, unspecified; I25.2 Old myocardial infarction; I25.10 Atherosclerotic heart disease of native coronary artery without angina pectoris; I10 Essential (primary) hypertension; M19.90 Unspecified osteoarthritis, unspecified site; E78.00 Pure hypercholesterolemia, unspecified; Z86.73 Personal history of transient ischemic attack (TIA), and cerebral infarction without residual deficits; Z87.19 Personal history of other diseases of the digestive system; Z87.01 Personal history of pneumonia (recurrent); Z78.0 Asymptomatic menopausal state; Z90.49 Acquired absence of other specified parts of digestive tract; Z95.5 Presence of coronary angioplasty implant and graft; Z79.82 Long term (current) use of aspirin; Z79.899 Other long term (current) drug therapy; F17.210 Nicotine dependence, cigarettes, uncomplicated
CPT/HCPCS: 00790; 49561; 49568; 88302; J7120; C1781; J2405

== ENCOUNTER → 2019-01-31 10:23 | Outpatient (CLI) | payer BC, SELFPAY ==
[2019-01-05 06:35] VITALS: BMI 31.3
[2019-01-31 12:39] LABS: Absolute Lymphocyte Count 2.96 X10^3/uL (0.83-4.51); Absolute Neutrophil Count 6.7 X10^3/uL (2.0-7.7); Basophil# 0.04 X10^3/uL; Basophil% 0.4 % (0-1); Eosinophils% 1.9 % (0-5); Hematocrit 33.7 % (37-47); Lymphocyte # 2.96 X10^3/ul (4.0); Lymphocyte % 28.2 % (19-41); Mean Corp Hgb Conc 29.7 g/dL (32-36); Mean Corpuscular Hgb 25.8 pg (27.0-32.0); Mean Corpuscular Volume 87.1 fL (81-99); Mean Platelet Vol. 9.8 fl (6.2-12.0); Monocyte# 0.59 X10^3/uL; Monocyte% 5.6 % (0-10); NRBC Flagged by Analyzer 0 % (0-5); Neutrophil # 6.69 X10^3/uL (2.7-7.7); Neutrophil % 63.6 % (47-70); Platelet Count 385 K/mm3 (150-450); RBC Distribution Width CV 16.7 % (11.6-14.6); Red Blood Count 3.87 M/mm3 (4.2-5.4); White Blood Count 10.5 K/mm3 (4.4-11.0)
[2019-01-31 12:41] LABS: ALB/GLOB Ratio 0.8 RATIO (0.9-2.4); AST(SGOT) 12 U/L (15-37); Alanine Aminotransfer ALT/SGPT 21 U/L (13-56); Alkaline Phosphatase 73 U/L (45-117); Anion Gap 9 (5-15); BUN 20 mg/dL (7-18); BUN/Creat Ratio 22.5 RATIO (10-20); Calcium,Total 8.3 mg/dL (8.5-10.1); Chloride 107 mmol/L (98-107); Creatinine, Serum 0.89 mg/dL (0.55-1.02); EST Glomerular Filtration Rate 68 mL/min (>60); Est Glom Filt Rate - Afr Amer 82 mL/min (>60); Free T3 1.4 pg/mL (2.18-3.98); Globulin 3.6 g/dL (2.2-4.2); Glucose 142 mg/dL (74-106); Potassium 3.6 mmol/L (3.5-5.1); Protein, Total 6.6 g/dL (6.4-8.2); Sodium Level 144 mmol/L (136-145); T4 Free Direct 1.23 ng/dL (0.76-1.46); Thyroid Stim Hormone (TSH) 2.96 uIU/mL (0.358-3.74)
== END ==
LOC: LAB.FUTURE 10:23 → BFHLAB 03-02 10:47
PROVIDERS: Family Provider Family Medicine; PCP Family Medicine; Visit Provider Family Medicine
DX: E03.9 Hypothyroidism, unspecified (principal)
CPT/HCPCS: 36415; 80053; 84439; 84443; 84481; 85025

== ENCOUNTER → 2019-03-14 09:16 | Outpatient (CLI) | payer BC, SELFPAY ==
[2019-01-05 06:35] VITALS: BMI 31.3
--- NOTE | 2019-03-14 09:19 | US_ITS ---
STUDY: ULTRASOUND BREAST - RIGHT REASON FOR EXAM: Female, 63 years old. Palpable lump in the right breast. TECHNIQUE: Axial and longitudinal images of the RIGHT breast were performed with a high resolution ultrasound transducer. # OF IMAGES: 27 COMPARISON: Comparison is made with prior mammogram done earlier today. FINDINGS: RIGHT Breast: The upper outer quadrant of the breast was examined by ultrasound. There is homogeneous fibroglandular tissue. No sonographic and amount is seen. US/Breast Limited Unilateral IMPRESSION: No sonographic abnormality is seen. ASSESSMENT CATEGORY: BIRADS Category 1: Negative. A letter regarding these results will be sent to the patient by the facility within 30 days. Electronically Signed: Luis Antonio Mota, at 15:49 EST , Service support ,
--- NOTE | 2019-03-14 09:19 | BI_ITS ---
MAMMOGRAPHY - BILATERAL DIAGNOSTIC REASON FOR EXAM: Female, 63 years old. Right breast lump. PERTINENT HISTORY: Sister with breast cancer. Grandmother with breast cancer. TECHNIQUE: Digital bilateral breast charlene (3D mammographic acquisition) in the CC and MLO projections. 2-D mediolateral oblique (MLO) and craniocaudad (CC) views of both breasts were obtained. CAD: Full Field Digital Mammography with Computer Added Detection was performed. COMPARISON: Comparison is made with prior study dated April 29, 2013. FINDINGS: Breast Composition: There are scattered areas of fibroglandular density. There are no dominant masses or suspicious calcifications. Benign appearing right axillary lymph node. No other significant abnormalities are identified. There has been no significant change since the prior study. BI/DIAG MAMM W/CAD, BILAT IMPRESSION: Stable bilateral diagnostic mammogram. With the patient's history of a palpable abnormality in the right breast, correlation with ultrasound is recommended. ASSESSMENT CATEGORY: BIRADS Category 0: Incomplete. Need additional imaging evaluation. A letter regarding these results will be sent to the patient by the facility within 30 days. Approximately 10% of breast cancers are not detected by mammography. A normal mammogram should not delay biopsy of a clinically suspicious abnormality. Electronically Signed: Luis Antonio Mota, at 11:13 EST , Service support ,
== END ==
PROVIDERS: Family Provider Family Medicine; PCP Family Medicine; Referring Provider Family Medicine; Visit Provider Family Medicine
DX: N63.10 Unspecified lump in the right breast, unspecified quadrant (principal)
CPT/HCPCS: 76642; 77062; 77066; G0279

== ENCOUNTER → 2019-03-30 08:05 | Outpatient (CLI) | payer BC, SELFPAY ==
[2019-01-05 06:35] VITALS: BMI 31.3
[2019-03-21 09:44] VITALS: BMI 31.3
--- NOTE | 2019-03-30 15:21 | PFTCOMP_ITS ---
COMPLETE PULMONARY FUNCTION TEST INTERPRETATION Brief HPI: Patient is a 63 year old female, currently under the care of myself, who presents to [facility] for complete pulmonary function tests secondary to diagnosis of bronchiectasis. Respiratory therapist reports good effort and reproducible results. Interpretation: Forced expiration spirometry shows a moderate large airways obstructive ventilatory defect with an FEV1 of 73% predicted. There is a significant bronchodilator response in FVC and FEV1 by strict ATS criteria. Spirograms are of good quality and plateau slowly, indicating slowly emptying areas of the lungs. The respiratory flow volume loop shows decreased expiratory flow rates at all lung volumes consistent with airway obstruction. Lung volumes by body plethysmography show a normal total lung capacity at 4.1 L, 112% predicted. All other lung volumes are within normal limits. Diffusion capacity by carbon monoxide is decreased at 49% predicted. The airway resistance is elevated. No previous pulmonary function tests were available for review. Impression: Partially reversible moderate large airways obstructive ventilatory defect with a disproportionate reduction in diffusing capacity.
== END ==
PROVIDERS: Family Provider Family Medicine; PCP Family Medicine; Referring Provider Internal Medicine Critical Care Medicine; Visit Provider Internal Medicine Critical Care Medicine
DX: J43.2 Centrilobular emphysema (principal); J47.9 Bronchiectasis, uncomplicated
CPT/HCPCS: 94060; 94726; 94729

== ENCOUNTER → 2019-04-01 09:06 | Outpatient (CLI) | payer BC, SELFPAY ==
[2019-01-05 06:35] VITALS: BMI 31.3
[2019-03-21 09:44] VITALS: BMI 31.3
[2019-04-01 09:31] VITALS: PULSE 70; PULSE 71; PULSE 73; PULSE 82; PULSE 84; PULSE 87; PULSE 89; O2SAT 91; O2SAT 93; O2SAT 94
--- NOTE | 2019-04-01 14:02 | PCM.PSN.6M ---
PSN 6 Minute Walk Test - 6 Minute Walk Test 6 Minute Walk Test: 6 Minute Walk Test PSN:6-Minute Walk Test Start: 04/01/19 09:30 Freq: Status: Active Protocol: RESP.6MINW Document 04/01/19 09:31 JODY (Rec: 04/01/19 09:33 JODY [id number]) 6 Minute Walk Test Date Performed 04/01/19 Time Performed 09:00 Height 4 ft 10 in Weight: 125 lb Weight in Pounds 125.[address]: Henry Page Assistive device used: Walker Pre-test Oxygen Delivery Method Room Air Pulse Ox (%) 93 Pulse Rate (60-100 beats/min) 73 Dyspnea Shakeel Scale (0-10) 0 Exertion Shakeel Scale (6-20) 6 1st minute Oxygen Delivery Method Room Air Pulse Ox (%) 94 Pulse Rate (60-100 beats/min) 87 2nd minute Oxygen Delivery Method Room Air Pulse Ox (%) 91 Pulse Rate (60-100 beats/min) 89 3rd minute Oxygen Delivery Method Room Air Pulse Ox (%) 91 Pulse Rate (60-100 beats/min) 89 4th minute Oxygen Delivery Method Room Air Pulse Ox (%) 94 Pulse Rate (60-100 beats/min) 82 5th minute Oxygen Delivery Method Room Air Pulse Ox (%) 93 Pulse Rate (60-100 beats/min) 84 6th minute Oxygen Delivery Method Room Air Pulse Ox (%) 94 Pulse Rate (60-100 beats/min) 71 Dyspnea Shakeel Scale (0-10) 1 Exertion Shakeel Scale (6-20) 13 Post-test Oxygen Delivery Method Room Air Pulse Ox (%) 94 Pulse Rate (60-100 beats/min) 70 Full Laps Walked 4 Partial Lap, Number of Tiles Walked 0 Total Distance Walked (ft) 236 - Interpretation Interpretation: The patient ambulated 236 feet over the course of 6 minutes beginning on room air. It should be noted that the patient stopped walking at minute 4 of the test and remained seated for the last 2 minutes. Pretesting oxygen saturation was noted to be 93% on room air. With ambulation, the bibi oxygen saturation was 91%. Although there was evidence of impaired walk distance, there was no significant exertional oxygen desaturation. However, the sensitivity for detecting such a drop in oxygen saturation, would be limited by the patient's lack of ambulation for the last 2 minutes of testing. - Recommendations Recommendations: There is no indication for the use of supplemental oxygen at this time.
== END ==
PROVIDERS: Family Provider Family Medicine; PCP Family Medicine; Referring Provider Internal Medicine Critical Care Medicine; Visit Provider Internal Medicine Critical Care Medicine
DX: J43.2 Centrilobular emphysema (principal); J47.9 Bronchiectasis, uncomplicated; N39.0 Urinary tract infection, site not specified
CPT/HCPCS: 87086; 87088; 87186; 94618

== ENCOUNTER 2019-06-22 07:52 | Day surgery (SDC) | payer BC, SELFPAY ==
[2019-04-12 07:46] VITALS: BMI 26.1
[2019-06-22] VITALS (8 sets, daily range): BP systolic 104–145; BP diastolic 53–78; PULSE 71–90; RESP 14–16; TEMP 36.6–36.7; O2SAT 85–96; BMI 29.4
[2019-06-22] MEDS: Lactated Ringers 1,000 ML 100 ML IV (08:35)
[2019-06-22] MEDS: Bupiv/Epi 0.25% 30 ML Vial (09:34)
== END 2019-06-22 13:27 | disposition home or self-care (01) ==
LOC: SDC 07:55 → AC 08:00
PROVIDERS: PCP Family Medicine; Referring Provider Anesthesiology Pain Medicine; Visit Provider Anesthesiology Pain Medicine
PROC: (CPT 62355; principal; 2019-06-22 09:00)
DX: T85.890A Other specified complication of nervous system prosthetic devices, implants and grafts, initial encounter (principal); M96.1 Postlaminectomy syndrome, not elsewhere classified; J44.9 Chronic obstructive pulmonary disease, unspecified; I10 Essential (primary) hypertension; E78.00 Pure hypercholesterolemia, unspecified; G47.30 Sleep apnea, unspecified; Z78.0 Asymptomatic menopausal state; K21.9 Gastro-esophageal reflux disease without esophagitis; F17.200 Nicotine dependence, unspecified, uncomplicated; Z79.02 Long term (current) use of antithrombotics/antiplatelets; Z79.899 Other long term (current) drug therapy; I25.2 Old myocardial infarction; Z95.5 Presence of coronary angioplasty implant and graft
CPT/HCPCS: 00300; 62355; 62365; 76000; J7120; J2405

== ENCOUNTER → 2019-10-25 08:58 | Outpatient (CLI) | payer BC, SELFPAY ==
[2019-07-19 08:50] VITALS: BMI 29.4
--- NOTE | 2019-10-25 09:02 | RAD_ITS ---
STUDY: X-RAY - CERVICAL SPINE REASON FOR EXAM: Female, 64 years old. neck pain TECHNIQUE: 5 view(s) of the cervical spine were obtained. COMPARISON: None FINDINGS: Normal anterior atlantoaxial articulation. Normal odontoid process. There is straightening of the normal cervical lordosis. There is multi-level endplate spondylosis. There is multi-level degenerative disc disease with multilevel disc space narrowing. There is multi-level osseous foraminal stenosis. The soft tissue structures are unremarkable. RAD/Cerv Spine 4 or 5 Views IMPRESSION: Degenerative disc disease of the lower cervical spine with 2 mm retrolisthesis of C4 on C5 and straightening of the normal lordotic curvature. Electronically Signed: Mitch Aguilera MD at 9:33 EDT Tel , Service support ,
== END ==
PROVIDERS: PCP Family Medicine; Referring Provider Family Medicine; Visit Provider Family Medicine
DX: M54.2 Cervicalgia (principal)
CPT/HCPCS: 72050

== ENCOUNTER 2020-06-26 07:00 | Day surgery (SDC) | payer MEDICARE, SELFPAY ==
[2020-04-24 10:34] VITALS: BMI 28.8
[2020-06-26] VITALS (7 sets, daily range): BP systolic 95–127; BP diastolic 49–74; PULSE 78–96; RESP 16; TEMP 36.4–36.9; O2SAT 92–97; BMI 28.8
[2020-06-26] MEDS: Lactated Ringers 1,000 ML 100 ML IV (07:40)
--- NOTE | 2020-06-26 08:44 | OP.PCM_ITS ---
Problem List (1) Urgency of urination Status: Acute (2) Urgency incontinence Status: Acute (3) Frequency of micturition Status: Acute (4) Nocturia Status: Acute Report of Operation Date of Procedure: 06/26/20 Pre-Operative Diagnosis: Urinary urgency, urinary urge incontinence, urinary frequency, nocturia Post-Operative Diagnosis: Same Surgery/Procedure Performed:: InterStim stage I Type of Anesthesia:: MAC/Supplemental/Local Description of Procedure: The patient is a 65-year-old female with multiple spinal procedures and refractory urinary urgency, urinary frequency with urge incontinence and nocturia. She has failed conservative measures and undergone testing. She now presents for InterStim stage I. Informed consent was obtained including a discussion of the risks of COVID-19. The patient was taken to the operating room and placed on prone position on the operating room table. She was appropriately padded and secured to the table. Anesthesia monitored the head, neck, airway, IV access and vital signs throughout the case. Once anesthesia was appropriately administered the patient was prepped and draped in usual sterile fashion. Using fluoroscopy, her S3 foramen's were identified in the AP view as well as the lateral view. The area above the S3 foramen was infiltrated with lidocaine. The needle was then passed through the skin into the S3 foramen. Good amarilys response was obtained. On the patient's left side I was also able to obtain good access to the S3 foramen with amarilys response as well. Given her previous surgical procedures, the pain pump being on her left side in the past and her scar tissue, the decision was made to place her pocket site on the right. The stylette was removed from the needle and the guidewire was placed. A skin incision was then made and then the dilator was inserted over the guidewire. Once it was appropriately positioned the stylette was then removed and the lead using the curved stylette was inserted through the dilator. Positioning was verified using fluoroscopy. All 4 leads achieved good amarilys response. At this time the pocket site was selected. The area was infiltrated with lidocaine and an incision was made. Using Bovie cautery and blunt dissection, the pocket was created and hemostasis was obtained. The lead was then tunneled into the pocket site. The lead extension exit site was selected on the ipsilateral side secondary to her spinal procedures and scar tissue. The tunneler was then passed through the location and the lead extension was attached and pulled into position. The lead was cleaned and inserted into the extension and secured using the torque wrench. The lead extension wire was secured to itself using a Prolene suture. This was then buried into the pocket site which was closed with 3-0 Vicryl followed by 4- 0 subcuticular Vicryl suturing. Skin glue was then applied. The lead and insertion site was closed with 4-0 Vicryl and skin glue. The battery was attached to the lead extension and covered with an OpSite and then cloth tape. The patient was then awakened and taken to the recovery room in good condition. There were no complications during this procedure. Grafts/Implants Used: InterStim lead - Complications None - Admit VTE Documentation VTE Present on Admission: No VTE Mechan Device Prophylaxis: None VTE Pharm Prophylaxis ordered?: No Reason prophylaxis not ordered:: Treatment Not Indicated
--- NOTE | 2020-06-26 08:50 | RAD_ITS ---
STUDY: X-RAY - PELVIS REASON FOR EXAM: Female, 65 years old. INTERSTIM THERAPY 1 TECHNIQUE: One view of the pelvis was obtained. COMPARISON: None. FINDINGS: Intraoperative imaging was provided. The tip of the InterStim electrode is in the left posterior aspect of the pelvis. RAD/Pelvis 1 or 2 Views IMPRESSION: Imaging provided for InterStim therapy placement. Electronically Signed: Luis Antonio Mota MD at 11:11 EST , Service support ,
--- NOTE | 2020-06-26 08:50 | DCINST_ITS ---
Discharge Diet: No Restrictions Discharge Activity: May Not Shower May resume sexual activity in: 4 weeks Call your doctor if your incision/area has: Continuous Slow Oozing, Sudden Increased Bleeding, Increased Pain/ Swelling, Increased Redness, Foul Smelling Discharge, Swelling at the incision site Call your doctor if you observe: Fever of 101 or Higher, Inability to urinate, Inability to have a bowel movement, Calf discomfort, Uncontrolled pain Cleanse incision/area with: Keep Dressing Clean & Dry Allergies/Adverse Reactions: Allergies cefaclor [From Ceclor] Allergy (Verified 06/19/20 09:08) Itching clarithromycin Allergy (Verified 06/19/20 09:08) Hives doxycycline Allergy (Verified 06/19/20 09:08) Itching Penicillins Allergy (Verified 06/19/20 09:08) Hives Sulfa (Sulfonamide Antibiotics) Allergy (Verified 06/19/20 09:08) Hives biotin Adverse Reaction (Unknown, Verified 06/19/20 09:08) Unknown zolpidem [From Ambien] Adverse Reaction (Unknown, Verified 06/19/20 09:08) mental issues Medications to take at Discharge Atorvastatin Calcium [Lipitor] 80 mg PO QHS 06/01/13 Clopidogrel Bisulfate [Plavix] 75 mg PO DAILY 06/01/13 Metoprolol Tartrate [Lopressor (beta jackie)] 25 mg PO BID 06/01/13 cholecalciferol (vitamin D3) 25 mcg (1,000 unit) capsule 1,000 unit PO DAILY 11/17/18 ipratropium 0.5 mg-albuterol 3 mg (2.5 mg base)/3 mL nebulization soln 3 ml INHALATION Q8H PRN 11/17/18 levothyroxine 88 mcg capsule 100 mcg PO DAILY 11/17/18 loratadine 10 mg capsule 10 mg PO DAILY PRN 11/17/18 lorazepam 1 mg tablet 1 mg PO BID-TID PRN 11/17/18 mometasone-formoterol HFA 100 mcg-5 mcg/actuation aerosol inhaler 2 puff INHALATION DAILY 11/17/18 hydroxyzine HCl 50 mg tablet 50 mg PO QHS 12/01/18 Omeprazole 40 mg PO DAILY 06/21/19 montelukast 10 mg tablet 10 mg PO QPM #90 tab 09/10/20 tiotropium bromide 2.5 mcg/actuation mist for inhalation 2 puff INHALATION QDAY #3 ea 01/05/20 Albuterol IH (ProAir) [Proair Hfa] 1 - 2 puff INHALATION Q6H PRN PRN 06/19/20 Bupropion HCl [Wellbutrin Xl] 150 mg PO DAILY 06/19/20 Duloxetine Hcl [Cymbalta] 60 mg PO BID 06/19/20 Mirtazapine [Remeron] 30 mg PO QHS 06/19/20 Quetiapine Fumarate [Seroquel] 100 mg PO QHS 06/19/20 Oxycodone HCl/Acetaminophen [Percocet 5/325] 2 tablet PO Q8H PRN PRN 7 Days #20 tablet 06/26/20 The following prescriptions were given: Oxycodone HCl/Acetaminophen [Percocet 5/325] 2 tablet PO Q8H PRN PRN 7 Days #20 tablet PRN Reason: Pain Transmission Status: Sent to [id number] Primary Care Physician: Chrystal Michel DO [Primary Care Provider] - Test Results: Test results from this visit will be discussed in further detail at your follow- up appointment, if applicable. Please Follow Up With: Meagan Millan MD When: as scheduled next week Proposed Discharge Date: 06/26/20
[2020-06-26] MEDS: Vancomycin IV 1,000 MG/200 ML BAG 200 MG IV (09:05)
[2020-06-26] MEDS: Lidocaine 1% /Epi 1:100 (20ml) 20 ML Vial (09:05)
== END 2020-06-26 11:10 | disposition home or self-care (01) ==
LOC: SDC 07:02 → AC 07:03
PROVIDERS: PCP Family Medicine; Referring Provider Urology; Visit Provider Urology
PROC: (CPT 64581; principal; 2020-06-26 08:40)
DX: N39.41 Urge incontinence (principal); R35.0 Frequency of micturition; R35.1 Nocturia; N32.89 Other specified disorders of bladder; I10 Essential (primary) hypertension; E03.9 Hypothyroidism, unspecified; E78.00 Pure hypercholesterolemia, unspecified; J45.909 Unspecified asthma, uncomplicated; Z20.822 Contact with and (suspected) exposure to COVID-19; K21.9 Gastro-esophageal reflux disease without esophagitis; G47.30 Sleep apnea, unspecified; F32.9 Major depressive disorder, single episode, unspecified; F41.0 Panic disorder [episodic paroxysmal anxiety]; Z78.0 Asymptomatic menopausal state; F17.210 Nicotine dependence, cigarettes, uncomplicated; Z79.02 Long term (current) use of antithrombotics/antiplatelets; Z79.82 Long term (current) use of aspirin; Z79.899 Other long term (current) drug therapy; I25.2 Old myocardial infarction; Z86.73 Personal history of transient ischemic attack (TIA), and cerebral infarction without residual deficits; Z95.5 Presence of coronary angioplasty implant and graft
CPT/HCPCS: 00630; 64581; 72170; 76000; 87426; C9803; J7120; J2405

== ENCOUNTER 2020-07-10 06:44 | Day surgery (SDC) | payer MEDICARE, SELFPAY ==
[2020-04-24 10:34] VITALS: BMI 28.8
[2020-06-26 07:30] VITALS: BMI 28.8
[2020-07-10] VITALS (7 sets, daily range): BP systolic 97–127; BP diastolic 51–64; PULSE 74–82; RESP 16; TEMP 36.1–36.4; O2SAT 91–95; BMI 29.8
[2020-07-10] MEDS: Vancomycin IV 1,000 MG/200 ML BAG 200 MG IV (07:26)
[2020-07-10] MEDS: Lactated Ringers 1,000 ML 100 ML IV (07:26)
--- NOTE | 2020-07-10 08:27 | PCM.DC.URO ---
Discharge Diet: No Restrictions Discharge Activity: May not drive while taking narcotic pain medications. May resume sexual activity in: No Restrictions Call your doctor if your incision/area has: Continuous Slow Oozing, Sudden Increased Bleeding, Increased Pain/ Swelling, Increased Redness, Foul Smelling Discharge, Swelling at the incision site Call your doctor if you observe: Fever of 101 or Higher, Inability to urinate, Inability to have a bowel movement, Calf discomfort, Uncontrolled pain Allergies/Adverse Reactions: Allergies cefaclor [From Ceclor] Allergy (Verified 07/10/20 06:59) Itching clarithromycin Allergy (Verified 07/10/20 06:59) Hives doxycycline Allergy (Verified 07/10/20 06:59) Itching Penicillins Allergy (Verified 07/10/20 06:59) Hives Sulfa (Sulfonamide Antibiotics) Allergy (Verified 07/10/20 06:59) Hives biotin Adverse Reaction (Unknown, Verified 07/10/20 06:59) Unknown zolpidem [From Ambien] Adverse Reaction (Unknown, Verified 07/10/20 06:59) mental issues Medications to take at Discharge Atorvastatin Calcium [Lipitor] 80 mg PO QHS 06/01/13 Clopidogrel Bisulfate [Plavix] 75 mg PO DAILY 06/01/13 Metoprolol Tartrate [Lopressor (beta jackie)] 25 mg PO BID 06/01/13 cholecalciferol (vitamin D3) 25 mcg (1,000 unit) capsule 1,000 unit PO DAILY 11/17/18 ipratropium 0.5 mg-albuterol 3 mg (2.5 mg base)/3 mL nebulization soln 3 ml INHALATION Q8H PRN 11/17/18 levothyroxine 88 mcg capsule 100 mcg PO DAILY 11/17/18 loratadine 10 mg capsule 10 mg PO DAILY PRN 11/17/18 lorazepam 1 mg tablet 1 mg PO BID-TID PRN 11/17/18 mometasone-formoterol HFA 100 mcg-5 mcg/actuation aerosol inhaler 2 puff INHALATION DAILY 11/17/18 hydroxyzine HCl 50 mg tablet 50 mg PO QHS 12/01/18 Omeprazole 40 mg PO DAILY 06/21/19 montelukast 10 mg tablet 10 mg PO QPM #90 tab 01/05/20 tiotropium bromide 2.5 mcg/actuation mist for inhalation 2 puff INHALATION QDAY #3 ea 01/05/20 Albuterol IH (ProAir) [Proair Hfa] 1 - 2 puff INHALATION Q6H PRN PRN 06/19/20 Bupropion HCl [Wellbutrin Xl] 150 mg PO DAILY 06/19/20 Duloxetine Hcl [Cymbalta] 60 mg PO BID 06/19/20 Mirtazapine [Remeron] 30 mg PO QHS 06/19/20 Quetiapine Fumarate [Seroquel] 100 mg PO QHS 06/19/20 Oxycodone HCl/Acetaminophen [Percocet 5/325] 2 tablet PO Q8H PRN PRN 7 Days #10 tablet 07/10/20 The following prescriptions were given: Oxycodone HCl/Acetaminophen [Percocet 5/325] 2 tablet PO Q8H PRN PRN 7 Days #10 tablet PRN Reason: Pain Transmission Status: Sent to [id number] Primary Care Physician: Chrystal Michel DO [Primary Care Provider] - Test Results: Test results from this visit will be discussed in further detail at your follow-up appointment, if applicable. Please Follow Up With: Meagan Millan MD When: call for appt in 3-4 weeks Proposed Discharge Date: 07/10/20
[2020-07-10] MEDS: Lidocaine 1% /Epi 1:100 (20ml) 20 ML Vial (08:40)
--- NOTE | 2020-07-10 09:59 | PCM.OPRPT ---
Problem List (1) Urgency of urination Status: Acute (2) Urgency incontinence Status: Acute (3) Frequency of micturition Status: Acute Report of Operation Date of Procedure: 07/10/20 Pre-Operative Diagnosis: Urinary urgency, urinary frequency, urge incontinence Post-Operative Diagnosis: Same Surgery/Procedure Performed:: InterStim stage II Type of Anesthesia:: MAC Description of Procedure: The patient is a 65-year-old female with refractory urinary urgency frequency and urge incontinence, with successful management via InterStim stage I who now presents for stage II implant. Informed consent was obtained including a discussion of the risks of COVID-19. She was taken to the operating room and placed in a prone position on operating table. She was secured to the table and all dependent portions of her body were appropriately padded. Anesthesia monitored the head, neck, airway, IV access and vital signs throughout the case. Once anesthesia was appropriate ministered she was prepped and draped in usual sterile fashion. The previous incision on her right hip was opened after being infiltrated with lidocaine with epinephrine. Care was taken to avoid injury to the InterStim lead. The lead extension was brought into the operative field and removed using the torque wrench. The lead extension was cut using heavy scissors and was removed from underneath the drape from outside the operative field. At this time the pocket site was enlarged. Hemostasis was achieved with cautery. The lead was cleaned and dried and inserted all of the way into the IPG and was then secured using the torque wrench. The IPG was placed into the pocket site and impedances were found to be appropriate. The pocket was then closed in 2 layers with 3-0 Vicryl interrupted followed by 4-0 subcuticular suturing. The skin was then closed with Dermabond. The patient was then awakened and taken to the recovery room in good condition. There were no complications during this procedure. Grafts/Implants Used: IPG InterStim - Complications None - Admit VTE Documentation VTE Present on Admission: No VTE Mechan Device Prophylaxis: None Reason prophylaxis not ordered:: Treatment Not Indicated
== END 2020-07-10 09:48 | disposition home or self-care (01) ==
LOC: SDC 06:45 → AC 06:45
PROVIDERS: PCP Family Medicine; Referring Provider Urology; Visit Provider Urology
PROC: (CPT 64590; principal; 2020-07-10 08:25)
DX: N39.41 Urge incontinence (principal); R35.0 Frequency of micturition; R35.1 Nocturia; N32.89 Other specified disorders of bladder; Z20.822 Contact with and (suspected) exposure to COVID-19; I11.0 Hypertensive heart disease with heart failure; I50.9 Heart failure, unspecified; J44.9 Chronic obstructive pulmonary disease, unspecified; E03.9 Hypothyroidism, unspecified; E78.00 Pure hypercholesterolemia, unspecified; K21.9 Gastro-esophageal reflux disease without esophagitis; F17.210 Nicotine dependence, cigarettes, uncomplicated; Z79.02 Long term (current) use of antithrombotics/antiplatelets; Z79.899 Other long term (current) drug therapy; Z78.0 Asymptomatic menopausal state; I25.2 Old myocardial infarction; Z86.73 Personal history of transient ischemic attack (TIA), and cerebral infarction without residual deficits; Z95.5 Presence of coronary angioplasty implant and graft
CPT/HCPCS: 00300; 64590; 87426; C9803; J7120; C1767; J2405

== ENCOUNTER 2020-07-10 10:34 | Outpatient (RCR) | payer MEDICARE, SELFPAY ==
[2020-06-26 07:30] VITALS: BMI 28.8
[2020-07-10 07:20] VITALS: BMI 29.8
[2020-07-10] MEDS: COVID-19 VACC, MRNA(PFIZER)/PF 30 MCG/0.3 ML SYRINGE IM (10:11)
[2020-07-31] MEDS: COVID-19 VACC, MRNA(PFIZER)/PF 30 MCG/0.3 ML SYRINGE IM (13:58)
== END 2020-10-02 23:59 ==
LOC: IMMUN 10:34
PROVIDERS: PCP Family Medicine; Visit Provider Family Medicine
DX: Z23 Encounter for immunization (principal)
CPT/HCPCS: 0001A; 0002A; 91300

== ENCOUNTER → 2020-10-18 09:48 | Outpatient (CLI) | payer MEDICARE, SELFPAY ==
[2020-04-24 10:34] VITALS: BMI 28.8
--- NOTE | 2020-10-18 14:23 | PFTCOMP ---
COMPLETE PULMONARY FUNCTION TEST INTERPRETATION Brief HPI: Patient is a 65 year old female, currently under the care of myself, who presents to [facility] for complete pulmonary function tests secondary to diagnosis of bronchiectesis. Respiratory therapist reports good effort and reproducible results. Interpretation: Forced expiration spirometry shows a moderate large airways obstructive ventilatory defect with an FEV1 of 65% predicted. There is a significant bronchodilator response in FEV1 by strict ATS criteria. Spirograms are of good quality and plateau slowly, indicating slowly emptying areas of the lungs. The respiratory flow volume loop shows decreased expiratory flow rates at all lung volumes consistent with airway obstruction. Lung volumes by body plethysmography show a normal total lung capacity at 3.69 L, 101% predicted. All other lung volumes are within normal limits. Diffusion capacity by carbon monoxide is decreased at 36% predicted. The airway resistance is elevated. Compared to previous pulmonary function tests from 03/30/19, there has been a significant decrease in FEV1 and DLCO. Impression: Partially reversible moderate large airway ventilatory defect with a disproportionate reduction in DLCO.
== END ==
PROVIDERS: PCP Family Medicine; Referring Provider Internal Medicine Critical Care Medicine; Visit Provider Internal Medicine Critical Care Medicine
DX: J47.9 Bronchiectasis, uncomplicated (principal)
CPT/HCPCS: 94060; 94726; 94729

== ENCOUNTER → 2020-11-05 07:54 | Outpatient (CLI) | payer MEDICARE, SELFPAY ==
[2020-10-23 08:43] VITALS: BMI 27.8
--- NOTE | 2020-11-05 07:54 | CT_ITS ---
STUDY: LOW DOSE CT LUNG CANCER SCREENING REASON FOR EXAM: Female, 65 years old. History of 20 pack year smoker. RADIATION DOSAGE (If Supplied By Facility): CTDIvol = ( 2.01 ) mGy, DLP = ( 58.91 ) mGycm TECHNIQUE: No contrast was administered. Low dose technique was utilized (average mAS-38 and kVp 120). 1.25 mm axial source images with a slice interval of 1.25-mm were reconstructed in lung windows. 2.5 mm axial source images with a slice interval of 2.5-mm were reconstructed in lung windows. 5.0 mm axial source images with a slice interval of 5.0-mm were reconstructed in soft tissue windows. Nodule measured using lung windows on PACS and/or independent workstation with automated measurement of minimum and maximum diameter. Nodule measurement reported as average diameter rounded to the nearest whole number. Growth is defined as an increase ins size of greater than 1.5 mm. COMPARISON: Comparison is made with prior examination dated 10/03/2018. NODULES: No suspicious nodules are seen. Emphysema: Hyperinflation. Mild degree of emphysematous changes. Bolus formation is seen in the right upper lobe. Mild residual increased linear markings at the lung bases slightly more prominent on the right side suggestive of scarring. There is a 2.2 cm bulla in the left lower lobe. Endobronchial lesion: None Aorta: Atherosclerotic calcific plaques of the aortic arch. Coronary arteries: Coronary artery calcification. Heart: Unremarkable Pulmonary artery: Unremarkable Mediastinal nodes: Small benign-appearing mediastinal lymph nodes. Other chest and abdominal findings: Degenerative changes of the thoracic vertebrae. CT/Low Dose CT Lung Screening IMPRESSION: Lung-RADS category 2 - Continue annual screening with LDCT in 12 months. IMPORTANT NOTES FOR USE: ACR Lung-RADS Version 1.1 Assessment Categories Release Date: 2018 Category: Coded 0-4 bases on nodule(s) with highest degree of suspicion. Negative screen is defined as categories 1 and 2; a positive screen is defined as categories 3 and 4. Category 3 and 4A nodules that are unchanged on interval CT should be coded as category 2, and individuals returned to screening in 12 months. Category 4X: Category 3 or 4 nodules with additional imaging findings that increase the suspicion of lung cancer, such as spiculation, GGN that doubles in size in 1 year, enlarged lymph notes, etc. Category Modifiers: S (significant finding unrelated to lung cancer) Electronically Signed: Luis Antonio Mota MD at 8:58 EDT , Service support ,
== END ==
PROVIDERS: PCP Family Medicine; Referring Provider Nurse Practitioner Acute Care; Visit Provider Nurse Practitioner Acute Care
DX: F17.210 Nicotine dependence, cigarettes, uncomplicated (principal)
CPT/HCPCS: 71271

== ENCOUNTER → 2021-04-17 | Outpatient (CLI) | payer MEDICARE, SELFPAY ==
--- NOTE | 2021-04-17 15:04 | LES_PTH ---
PATIENT: TAJ BLANK LOC: [facility] U#:[id number] AGE/SX: 65/F ROOM: RE04/17/[address]: Dr. Pineda Hamilton DO : 1955 BED: DIS: 04/17/2021 SPEC #: [id number] RECD: 04/17/21 15:04 STATUS: MADHU FARSHAD #: [id number] DAYDAY: 04/17/21 15:[address]: Pineda Hamilton DEPT: SURGICAL PATHOLOGY RECD BY: Candida Aggarwal ENTERED: 04/18/21 08:29 SP TYPE: Lesion OTHR DR: Dr. Chrystal Michel, [facility] Tissues: Skin of arm Procedures: Surgery Specimen Level IV HEADER OPERATION: Excision of mass left elbow PRE-OP DIAGNOSIS: Localized swelling, mass and lump left upper limb TISSUE SUBMITTED: Subcutaneous mass left forearm MICROSCOPIC DIAGNOSIS Subcutaneous mass left forearm, excision: Fragments of fibroadipose tissue with extensive dystrophic calcifications. Negative for malignancy. See comment. SJ:suellen 04/22/2021 COMMENT Correlation with clinical findings and appropriate follow up are necessary. MICROSCOPIC DESCRIPTION Slides are reviewed. GROSS DESCRIPTION Received in fixative is one container labeled with the patient's name and designated left forearm. The specimen consists of multiple irregular fragments of light benson-white soft tissue that in aggregate measure 3 x 2 x 0.2 cm. The specimen is totally submitted in one cassette. / AM:suellen 04/18/21 TC:5 CPT: 05780
== END | disposition home or self-care (01) ==
LOC: LABSPEC 15:10
PROVIDERS: PCP Family Medicine; Referring Provider Student in an Organized Health Care Education/Training Program; Visit Provider Student in an Organized Health Care Education/Training Program
DX: R22.32 Localized swelling, mass and lump, left upper limb (principal)
CPT/HCPCS: 88305

== ENCOUNTER → 2021-10-29 | Outpatient (CLI) | payer MEDICARE, SELFPAY ==
--- NOTE | 2021-10-29 07:51 | CT_ITS ---
STUDY: LOW DOSE CT LUNG CANCER SCREENING REASON FOR EXAM: Female, 66 years old. Smoker and gt; 30 pack years RADIATION DOSAGE (If Supplied By Facility): CTDIvol = ( 2.01 ) mGy, DLP = ( 63.44 ) mGycm TECHNIQUE: No contrast was administered. Low dose technique was utilized (average mAS-38 and kVp 120). 1.25 mm axial source images with a slice interval of 1.25-mm were reconstructed in lung windows. 2.5 mm axial source images with a slice interval of 2.5-mm were reconstructed in lung windows. 5.0 mm axial source images with a slice interval of 5.0-mm were reconstructed in soft tissue windows. COMPARISON: Comparison is made with prior study dated 11/05/2020. NODULES: No suspicious nodules are seen. Emphysema: Hyperinflation. This is worse in the upper lobes. Scattered bullous formation in both lungs. Stable scarring at the left lung base as well as in the anterior medial aspect of the lingular segment of the left upper lobe. Endobronchial lesion: None Aorta: Atherosclerotic plaque formation. CORONARY ARTERIES: Coronary artery calcification is seen. Heart: Unremarkable Pulmonary artery: Unremarkable Mediastinal nodes: Unremarkable Other chest and abdominal findings: CT/Low Dose CT Lung Screening IMPRESSION: Lung-RADS category 2 - Continue annual screening with LDCT in 12 months. IMPORTANT NOTES FOR USE: ACR Lung-RADS Version 1.1 Assessment Categories Release Date: 2018 Category: Coded 0-4 bases on nodule(s) with highest degree of suspicion. Negative screen is defined as categories 1 and 2; a positive screen is defined as categories 3 and 4. Category 3 and 4A nodules that are unchanged on interval CT should be coded as category 2, and individuals returned to screening in 12 months. Category 4X: Category 3 or 4 nodules with additional imaging findings that increase the suspicion of lung cancer, such as spiculation, GGN that doubles in size in 1 year, enlarged lymph notes, etc. Category Modifiers: S (significant finding unrelated to lung cancer) Electronically Signed: Luis Antonio Mota MD at 11:15 EDT ,
== END | disposition home or self-care (01) ==
LOC: CT 07:50
PROVIDERS: PCP Family Medicine; Referring Provider Nurse Practitioner Acute Care; Visit Provider Nurse Practitioner Acute Care
DX: I25.10 Atherosclerotic heart disease of native coronary artery without angina pectoris (principal); Z87.891 Personal history of nicotine dependence
CPT/HCPCS: 71271

== ENCOUNTER → 2021-12-09 | Outpatient (CLI) | payer MEDICARE, SELFPAY ==
--- NOTE | 2021-12-09 11:40 | RAD_ITS ---
EXAM: XR LEFT RIBS AND AP CHEST, 3 OR MORE VIEWS CLINICAL INDICATION: PAIN, WORSE WITH BREATHING TECHNIQUE: Frontal and oblique views of the left ribs and frontal view of the chest. This report was created using [employer] report Central Desktop technology. COMPARISON: None. FINDINGS: LUNGS AND PLEURAL SPACES: Unremarkable. No consolidation or edema. No pneumothorax. No effusion. HEART: Unremarkable. Cardiac silhouette not enlarged. MEDIASTINUM: Central airways and mediastinal contour are unremarkable. BONES/JOINTS: Spinal fixation hardware noted. No evidence of displaced rib fractures. RAD/Ribs Uni Min 3V w/PA Chest IMPRESSION: No acute findings in the chest or left ribs. Electronically Signed: Trev Balbuena MD at 15:16 EDT ,
== END | disposition home or self-care (01) ==
PROVIDERS: PCP Family Medicine; Referring Provider Family Medicine; Visit Provider Family Medicine
DX: R07.81 Pleurodynia (principal)
CPT/HCPCS: 71101

== ENCOUNTER → 2021-12-26 | Outpatient (CLI) | payer MEDICARE, SELFPAY ==
[2021-12-26 12:08] LABS: Absolute Lymphocyte Count 2.75 X10^3/uL (0.83-4.51); Absolute Neutrophil Count 3.5 X10^3/uL (2.0-7.7); Basophil# 0.05 X10^3/uL; Basophil% 0.7 % (0-1); Eosinophil# 0.19 X10^3/uL; Eosinophils% 2.7 % (0-5); Hemoglobin 11.4 g/dL (12.0-15.0); Lymphocyte # 2.75 X10^3/ul (0.83-4.51); Lymphocyte % 38.8 % (19-41); Mean Corp Hgb Conc 32.6 g/dL (32-36); Mean Corpuscular Hgb 28.8 pg (27.0-32.0); Mean Corpuscular Volume 88.4 fL (81-99); Mean Platelet Vol. 9.4 fl (6.2-12.0); Monocyte# 0.53 X10^3/uL; Monocyte% 7.5 % (0-10); NRBC Flagged by Analyzer 0 % (0-5); Neutrophil # 3.54 X10^3/uL (2.7-7.7); Neutrophil % 49.9 % (47-70); Platelet Count 328 K/mm3 (150-450); RBC Distribution Width SD 44.9 fl (35.1-43.9); Red Blood Count 3.96 M/mm3 (4.2-5.4); White Blood Count 7.1 K/mm3 (4.4-11.0)
[2021-12-26 12:46] LABS: ALB/GLOB Ratio 0.8 RATIO (0.9-2.4); AST(SGOT) 12 U/L (15-37); Alanine Aminotransfer ALT/SGPT 18 U/L (13-56); Albumin, Serum 3.3 g/dL (3.2-5.0); Alkaline Phosphatase 91 U/L (45-117); Anion Gap 8 (5-15); BUN 17 mg/dL (7-18); Calcium,Total 8.5 mg/dL (8.5-10.1); Chloride 105 mmol/L (98-107); Cholesterol 140 mg/dL (200); Creatinine, Serum 1.13 mg/dL (0.55-1.02); EST Glomerular Filtration Rate 51 mL/min (>60); Est Glom Filt Rate - Afr Amer 62 mL/min (>60); Free T3 1.2 pg/mL (2.18-3.98); Globulin 3.9 g/dL (2.2-4.2); Glucose 100 mg/dL (74-106); High Density Lipoprotein 45 mg/dL; Potassium 4.2 mmol/L (3.5-5.1); Protein, Total 7.2 g/dL (6.4-8.2); Sodium Level 139 mmol/L (136-145); T4 Free Direct 0.91 ng/dL (0.76-1.46); Thyroid Stim Hormone (TSH) 0.84 uIU/mL (0.358-3.74); Triglycerides 213 mg/dL; Very Low Density Lipoprotein 43 mg/dL (5-40)
== END | disposition home or self-care (01) ==
LOC: MTLAB 10:54
PROVIDERS: PCP Family Medicine; Referring Provider Family Medicine; Visit Provider Family Medicine
DX: E03.9 Hypothyroidism, unspecified (principal); E78.5 Hyperlipidemia, unspecified; D64.9 Anemia, unspecified
CPT/HCPCS: 36415; 80053; 80061; 84439; 84443; 84481; 85025

== ENCOUNTER → 2022-03-13 | Outpatient (CLI) | payer MEDICARE, SELFPAY ==
[2022-03-13 10:57] LABS: ALB/GLOB Ratio 0.7 RATIO (0.9-2.4); AST(SGOT) 14 U/L (15-37); Alanine Aminotransfer ALT/SGPT 23 U/L (13-56); Albumin, Serum 2.9 g/dL (3.2-5.0); Alkaline Phosphatase 88 U/L (45-117); Anion Gap 7 (5-15); BUN 18 mg/dL (7-18); BUN/Creat Ratio 14.4 RATIO (10-20); Calcium,Total 8.8 mg/dL (8.5-10.1); Chloride 101 mmol/L (98-107); Creatinine, Serum 1.25 mg/dL (0.55-1.02); EST Glomerular Filtration Rate 46 mL/min (>60); Est Glom Filt Rate - Afr Amer 55 mL/min (>60); Free T3 1.9 pg/mL (2.18-3.98); Globulin 4.2 g/dL (2.2-4.2); Glucose 99 mg/dL (74-106); Potassium 4.8 mmol/L (3.5-5.1); Protein, Total 7.1 g/dL (6.4-8.2); Sodium Level 133 mmol/L (136-145); T4 Free Direct 0.87 ng/dL (0.76-1.46); Thyroid Stim Hormone (TSH) 0.43 uIU/mL (0.358-3.74)
== END | disposition home or self-care (01) ==
PROVIDERS: PCP Family Medicine; Referring Provider Family Medicine; Visit Provider Family Medicine
DX: E03.9 Hypothyroidism, unspecified (principal); Z51.81 Encounter for therapeutic drug level monitoring
CPT/HCPCS: 36415; 80053; 84439; 84443; 84481

== ENCOUNTER → 2022-03-26 | Outpatient (CLI) | payer MEDICARE, SELFPAY ==
[2022-03-26 18:02] LABS: Erythrocyte Sedimentation Rate 34 mm/hr (0-30)
[2022-03-26 18:16] LABS: Rheumatoid Factor < 10.0 IU/mL (<15)
[2022-03-28 18:26] LABS: ANTINUCLEAR ANTIBODIES DIRECT Negative (Negative)
[2022-03-31 12:15] LABS: CCP IgG Antibodies 2 units (0-19)
== END | disposition home or self-care (01) ==
LOC: BFHLAB 16:22
PROVIDERS: PCP Family Medicine; Visit Provider Family Medicine
DX: M25.50 Pain in unspecified joint (principal); R22.9 Localized swelling, mass and lump, unspecified
CPT/HCPCS: 36415; 85652; 86038; 86140; 86200; 86225; 86235; 86431

== ENCOUNTER → 2022-05-28 | Outpatient (CLI) | payer MEDICARE, SELFPAY ==
[2022-05-28 12:37] LABS: ALB/GLOB Ratio 0.7 RATIO (0.9-2.4); AST(SGOT) 14 U/L (15-37); Absolute Lymphocyte Count 2.68 X10^3/uL (0.83-4.51); Absolute Neutrophil Count 6.4 X10^3/uL (2.0-7.7); Alanine Aminotransfer ALT/SGPT 20 U/L (13-56); Albumin, Serum 3.1 g/dL (3.2-5.0); Alkaline Phosphatase 94 U/L (45-117); Anion Gap 6 (5-15); BUN 19 mg/dL (7-18); BUN/Creat Ratio 16.4 RATIO (10-20); Basophil# 0.04 X10^3/uL; Basophil% 0.4 % (0-1); Calcium,Total 8.7 mg/dL (8.5-10.1); Chloride 105 mmol/L (98-107); Creatinine, Serum 1.16 mg/dL (0.55-1.02); EST Glomerular Filtration Rate 50 mL/min (>60); Eosinophil# 0.14 X10^3/uL; Eosinophils% 1.4 % (0-5); Est Glom Filt Rate - Afr Amer 60 mL/min (>60); Globulin 4.2 g/dL (2.2-4.2); Glucose 91 mg/dL (74-106); Hematocrit 35.9 % (37-47); Hemoglobin 11.5 g/dL (12.0-15.0); Lymphocyte # 2.68 X10^3/ul (0.83-4.51); Lymphocyte % 26.4 % (19-41); Mean Corpuscular Hgb 28.5 pg (27.0-32.0); Mean Corpuscular Volume 88.9 fL (81-99); Mean Platelet Vol. 9.7 fl (6.2-12.0); Monocyte# 0.83 X10^3/uL; Monocyte% 8.2 % (0-10); NRBC Flagged by Analyzer 0 % (0-5); Neutrophil # 6.43 X10^3/uL (2.7-7.7); Neutrophil % 63.3 % (47-70); Platelet Count 368 K/mm3 (150-450); Potassium 4.3 mmol/L (3.5-5.1); Protein, Total 7.3 g/dL (6.4-8.2); RBC Distribution Width CV 15.3 % (11.6-14.6); RBC Distribution Width SD 49.6 fl (35.1-43.9); Red Blood Count 4.04 M/mm3 (4.2-5.4); Rheumatoid Factor < 10.0 IU/mL (<15); Sodium Level 138 mmol/L (136-145); White Blood Count 10.2 K/mm3 (4.4-11.0)
[2022-05-28 13:22] LABS: Hepatitis B Surface Antibody Non-Reactive; Hepatitis B Surface Antigen Non-Reactive (Nonreactive); Hepatitis C Antibody Non-Reactive (Nonreactive)
[2022-05-29 07:21] LABS: Erythrocyte Sedimentation Rate 36 mm/hr (0-30)
[2022-05-29 14:56] LABS: CCP IgG Antibodies 0 units (0-19)
== END | disposition home or self-care (01) ==
LOC: MTLAB 10:09
PROVIDERS: PCP Family Medicine; Referring Provider Internal Medicine Rheumatology; Visit Provider Internal Medicine Rheumatology
DX: M06.4 Inflammatory polyarthropathy (principal); M79.7 Fibromyalgia; M96.1 Postlaminectomy syndrome, not elsewhere classified; M48.061 Spinal stenosis, lumbar region without neurogenic claudication
CPT/HCPCS: 36415; 80053; 85025; 85652; 86140; 86200; 86431; 86706; 86803; 87340

== ENCOUNTER → 2022-06-05 | Outpatient (CLI) | payer MEDICARE, SELFPAY | END | disposition home or self-care (01) | LOC: LAB 08:54 | PROVIDERS: PCP Family Medicine; Visit Provider Student in an Organized Health Care Education/Training Program | DX: J47.9 Bronchiectasis, uncomplicated (principal) | CPT/HCPCS: 87070; 87077; 87186; 87205 ==

== ENCOUNTER → 2022-06-19 | Outpatient (CLI) | payer MEDICARE, SELFPAY ==
[2022-06-19 15:47] LABS: Free T3 1.9 pg/mL (2.18-3.98); T4 Free Direct 0.91 ng/dL (0.76-1.46); Thyroid Stim Hormone (TSH) 0.03 uIU/mL (0.358-3.74)
== END | disposition home or self-care (01) ==
LOC: BFHLAB 12:03
PROVIDERS: PCP Family Medicine; Visit Provider Family Medicine
DX: E03.9 Hypothyroidism, unspecified (principal)
CPT/HCPCS: 36415; 84439; 84443; 84481

== ENCOUNTER → 2022-07-30 | Outpatient (CLI) | payer MEDICARE, SELFPAY ==
[2022-07-30 12:48] LABS: Free T3 1.5 pg/mL (2.18-3.98); T4 Free Direct 0.83 ng/dL (0.76-1.46); Thyroid Stim Hormone (TSH) 0.02 uIU/mL (0.358-3.74)
== END | disposition home or self-care (01) ==
PROVIDERS: PCP Family Medicine; Referring Provider Family Medicine; Visit Provider Family Medicine
DX: E03.9 Hypothyroidism, unspecified (principal)
CPT/HCPCS: 36415; 84439; 84443; 84481

== ENCOUNTER → 2022-08-20 | Outpatient (CLI) | payer MEDICARE, SELFPAY ==
[2022-08-20 12:23] LABS: Absolute Lymphocyte Count 2.68 X10^3/uL (0.83-4.51); Absolute Neutrophil Count 5.8 X10^3/uL (2.0-7.7); Basophil# 0.06 X10^3/uL; Basophil% 0.6 % (0-1); Hematocrit 34.9 % (37-47); Hemoglobin 10.7 g/dL (12.0-15.0); Lymphocyte # 2.68 X10^3/ul (0.83-4.51); Lymphocyte % 27.2 % (19-41); Mean Corp Hgb Conc 30.7 g/dL (32-36); Mean Corpuscular Hgb 26.4 pg (27.0-32.0); Mean Corpuscular Volume 86.2 fL (81-99); Mean Platelet Vol. 9.5 fl (6.2-12.0); Monocyte# 1.05 X10^3/uL; Monocyte% 10.6 % (0-10); NRBC Flagged by Analyzer 0 % (0-5); Neutrophil # 5.84 X10^3/uL (2.7-7.7); Neutrophil % 59.3 % (47-70); Platelet Count 429 K/mm3 (150-450); RBC Distribution Width CV 15.5 % (11.6-14.6); RBC Distribution Width SD 48.8 fl (35.1-43.9); Red Blood Count 4.05 M/mm3 (4.2-5.4); White Blood Count 9.9 K/mm3 (4.4-11.0)
[2022-08-20 13:25] LABS: ALB/GLOB Ratio 0.8 RATIO (0.9-2.4); AST(SGOT) 20 U/L (15-37); Alanine Aminotransfer ALT/SGPT 25 U/L (13-56); Albumin, Serum 3.3 g/dL (3.2-5.0); Alkaline Phosphatase 84 U/L (45-117); Anion Gap 7 (5-15); BUN 27 mg/dL (7-18); CRP 5.26 mg/L (0.0-3.0); Calcium,Total 8.5 mg/dL (8.5-10.1); Chloride 107 mmol/L (98-107); Creatinine, Serum 1.69 mg/dL (0.55-1.02); EST Glomerular Filtration Rate 32 mL/min (>60); Est Glom Filt Rate - Afr Amer 39 mL/min (>60); Glucose 108 mg/dL (74-106); Magnesium 1.8 mg/dL (1.6-2.6); Potassium 4.1 mmol/L (3.5-5.1); Protein, Total 7.3 g/dL (6.4-8.2); Sodium Level 139 mmol/L (136-145)
[2022-08-20 13:27] LABS: BNP,B-Type NATRIURETIC PEPTIDE 9.5 pg/mL (0-100)
[2022-08-20 14:36] LABS: Erythrocyte Sedimentation Rate 24 mm/hr (0-30)
== END | disposition home or self-care (01) ==
LOC: BFHLAB 09:55
PROVIDERS: PCP Family Medicine; Referring Provider Family Medicine; Visit Provider Family Medicine
DX: D64.9 Anemia, unspecified (principal); I50.43 Acute on chronic combined systolic (congestive) and diastolic (congestive) heart failure; Z51.81 Encounter for therapeutic drug level monitoring
CPT/HCPCS: 36415; 80053; 83735; 83880; 85025; 85652; 86140

== ENCOUNTER 2022-08-23 16:21 | Inpatient (IN) | payer MEDICARE, SELFPAY ==
[2022-08-23] VITALS (24 sets, daily range): BP systolic 90–185; BP diastolic 54–173; PULSE 79–106; RESP 11–32; TEMP 36.3–36.6; O2SAT 78–100; BMI 32.9; BMI 35.0
--- NOTE | 2022-08-23 16:38 | ED.VIS.DYS ---
HPI History of Present Illness Chief Complaint: Shortness of Breath Informant: patient and EMS Narrative Narrative: Patient states she has had increased shortness of breath compared to baseline with regards to her asthma and COPD for the past month, since I have had these cold symptoms. No fevers or chills. Minimal sputum production with cough. She states that she had a phone conversation with the nurse practitioner in her pulmonary office in the past 4 weeks and separately, was prescribed prednisone and antibiotics and none of it helped. Today she is much more short of breath than she had been, she states it is worse with any little movement. She denies orthopnea. She has edema in her legs that is new, that has been present for the past 4 weeks as well. She has a history of CAD with 5 stents in the past. She has had constant chest tightness in the past month. She was using her albuterol rescue inhaler and it was helping some but not today. [facility] Medical History Anxiety Asthma Chronic back pain COPD (chronic obstructive pulmonary disease) Depression Diverticulitis Fibromyalgia GERD (gastroesophageal reflux disease) Heart disease History of bronchitis History of heart attack History of pneumonia HTN (hypertension) Hypothyroidism Incisional hernia Nausea and vomiting Osteoarthritis Osteoporosis Sleep apnea Spinal stenosis spinal stimulator Thyroid disorder TIA (transient ischemic attack) Home Medications atorvastatin 80 mg tablet 80 mg PO QHS cholesterol 06/01/13 [History Last Taken 05/25/14 80 MG] clopidogrel 75 mg tablet 75 mg PO DAILY anti platelet 06/01/13 [History Last Taken 12/11/18] metoprolol tartrate 25 mg tablet 12.5 mg PO BID blood pressure 06/01/13 [History Last Taken 06/26/20 05:00] lorazepam 1 mg tablet (Ativan) 1 mg PO BID-TID PRN Anxiety 11/17/18 [History Last Taken Unknown] hydroxyzine HCl 50 mg tablet 50 mg PO QHS 12/01/18 [History Last Taken Unknown] duloxetine 60 mg capsule,delayed release 60 mg PO BID 06/19/20 [History Last Taken Unknown] albuterol sulfate 90 mcg/actuation aerosol inhaler 1 - 2 puff inhalation Q6H PRN PRN COPD #2 device 06/03/22 [Rx Last Taken Unknown] buspirone 7.5 mg tablet 7.5 mg PO BID 06/03/22 [History Last Taken Unknown] montelukast 10 mg tablet 10 mg PO QPM #90 tabs 06/03/22 [Rx Last Taken Unknown] diclofenac sodium 75 mg tablet,delayed release 75 mg PO BID 08/23/22 [History Last Taken Unknown] furosemide 40 mg tablet 60 mg PO DAILY 08/23/22 [History Last Taken Unknown] hydroxychloroquine 200 mg tablet 200 mg PO BID 08/23/22 [History Last Taken Unknown] ipratropium 0.5 mg-albuterol 3 mg (2.5 mg base)/3 mL nebulization soln 3 ml inhalation Q4H PRN SOB 08/23/22 [History Last Taken Unknown] levothyroxine 50 mcg tablet 50 mcg PO DAILY 08/23/22 [History Last Taken Unknown] liothyronine 5 mcg tablet 25 mcg PO DAILY 08/23/22 [History Last Taken Unknown] pregabalin 50 mg capsule 50 mg PO DAILY 08/23/22 [History Last Taken Unknown] tiotropium bromide 2.5 mcg/actuation mist for inhalation (Spiriva Respimat) 2 inh inhalation DAILY 08/23/22 [History Last Taken Unknown] topiramate 25 mg tablet 50 mg PO QHS 08/23/22 [History Last Taken Unknown] triamcinolone acetonide 0.1 % topical cream 1 applic topical BID 08/23/22 [History Last Taken Unknown] Allergy/AdvReac Type Severity Reaction Status Date / Time [facility] Allergy Itching Verified 08/23/22 16:28 clarithromycin Allergy Hives Verified 08/23/22 16:28 doxycycline Allergy Itching Verified 08/23/22 16:28 Penicillins Allergy Hives Verified 08/23/22 16:28 Sulfa (Sulfonamide Allergy Hives Verified 08/23/22 16:28 Antibiotics) biotin AdvReac Unknown Unknown Verified 08/23/22 16:28 zolpidem [From Ambien] AdvReac Unknown mental Verified 08/23/22 16:28 issues Family History (Reviewed 06/03/22 @ 09:25 by Maricarmen Acevedo CHIEF MEDIA OFFICER, CHIEF MEDIA OFFICER-C) Father Asthma Heart disease Grandmother Breast cancer Diabetes Mother Heart disease COPD (chronic obstructive pulmonary disease) Other Cancer Surgical History (Reviewed 06/03/22 @ 09:25 by Maricarmen Acevedo CHIEF MEDIA OFFICER, CHIEF MEDIA OFFICER-C) H/O heart artery stent History of esophagogastroduodenoscopy (EGD) (~07/2018) History of incisional hernia repair (~12/20/18) History of incisional hernia repair Hx of cholecystectomy Previous back surgery S/P carpal tunnel release S/P correction of deviated nasal septum S/P hysterectomy S/P knee surgery Status post amputation of right foot Status post thyroidectomy Social History Smoking Status: Former smoker second hand exposure: Yes alcohol intake: never substance use type: does not use caffeine: Yes what type of physical activity do you participate in: none frequency: does not exercise ROS ROS ED Constitutional Constitutional ED: Denies chills or fever(s) Eyes Eyes: Denies change in vision or diplopia ENT ENT ED: Denies rhinorrhea or sore throat Cardiovascular Cardiovascular: Reports chest pain and leg edema; Denies orthopnea or palpitations Respiratory/Chest Respiratory/Chest: Reports dyspnea, dyspnea on exertion and sputum; Denies cough or orthopnea Gastrointestinal Gastrointestinal: Denies abdominal pain, diarrhea, nausea or vomiting Genitourinary Genitourinary ED: Denies dysuria or hematuria Musculoskeletal Musculoskeletal: Denies back pain or neck pain Integumentary Denies abscess or rash Neurologic Neurologic: Denies headache(s), paresthesias or weakness Psychiatric Psychiatric: Denies depression or suicidal thoughts EXAM Physical Exam Const Vital Signs: 08/23/22 16:22 08/23/22 16:37 08/23/22 16:53 Temperature 97.3 F L Temperature Source Temporal Pulse Rate 106 H 100 Respiratory Rate 32 H 24 H Respiratory Effort Normal Respiratory Depth Normal Respiratory Pattern Normal Blood Pressure 152/63 H Blood Pressure Mean 92 Pulse Ox 78 Oxygen Delivery Method Room Air Room Air Oxygen Flow Rate (L/min) 08/23/22 17:12 08/23/22 17:12 08/23/22 17:37 Temperature 97.5 F L Temperature Source Temporal Pulse Rate 102 H 102 H 95 Respiratory Rate 24 H 24 H 18 Respiratory Effort Respiratory Depth Respiratory Pattern Blood Pressure 111/56 L 111/56 L 118/92 H Blood Pressure Mean 74 74 100 Pulse Ox 93 93 95 Oxygen Delivery Method Nasal Cannula Nasal Cannula Nasal Cannula Oxygen Flow Rate (L/min) 5 5 5 08/23/22 18:07 08/23/22 18:08 08/23/22 18:20 Temperature Temperature Source Pulse Rate 94 Respiratory Rate 11 L Respiratory Effort Respiratory Depth Respiratory Pattern Blood Pressure Blood Pressure Mean Pulse Ox 88 91 Oxygen Delivery Method Room Air Nasal Cannula Oxygen Flow Rate (L/min) 2 08/23/22 18:37 08/23/22 18:33 08/23/22 19:05 Temperature Temperature Source Pulse Rate 95 Respiratory Rate 18 Respiratory Effort Respiratory Depth Respiratory Pattern Blood Pressure 90/68 Blood Pressure Mean 75 Pulse Ox 90 85 88 Oxygen Delivery Method Nasal Cannula Room Air Nasal Cannula Oxygen Flow Rate (L/min) 3 3 08/23/22 19:05 08/23/22 19:11 Temperature 97.9 F Temperature Source Oral Pulse Rate 96 Respiratory Rate 18 Respiratory Effort Respiratory Depth Respiratory Pattern Blood Pressure 185/173 H Blood Pressure Mean 177 Pulse Ox 91 91 Oxygen Delivery Method Nasal Cannula Nasal Cannula Oxygen Flow Rate (L/min) 4 4 Positive well nourished, well developed and obese General Appearance ED: well developed and NAD Nutritional Appearance: obese HEENT Reports moist mucous membranes normocephalic and atraumatic Eyes PERRL and EOMs intact bilaterally Neck full ROM, supple and no JVD Resp normal respiratory effort Resp Narrative: Bibasilar Rales. Few inspiratory wheezes throughout all prasad. Symmetric breath sounds, diminished throughout. Effort and Inspection: able to speak in complete sentences Cardio regular rate and regular rhythm Cardio Narrative: Faint heart sounds. GI non-tender and non-distended Auscultation: normoactive bowel sounds Palpation: soft Back/Spine no CVA tenderness General Back: other FROM Extremity normal to inspection Extremity Narrative: Status post right BKA. Left lower extremity is significantly edematous with pitting edema up to the knee, no signs of cellulitis or tenderness. General Extremety ED: Yes edema; Negative for pulses abnormal or tenderness General Extremity: edema; Negative for pulses abnormal Neuro oriented x3, CN's II-XII intact bilaterally and no sensory deficits noted Sensorium / Orientation: awake and alert Motor Exam: strength 5/5 throughout Psych mental status grossly normal Skin no rashes or lesions noted and no wounds MDM MDM MDM Narrative Medical decision making narrative: Acute congestive heart failure was considered. In working the patient up, chest x-ray shows bibasilar atelectasis but no convincing evidence of acute CHF, 2 views on my interpretation. Radiology in agreement. Her BNP is low, 23.5, well within normal limits, and her high-sensitivity troponin is normal at 10. Her EKG shows nothing acute, there are some chronic repolarization abnormalities that are unchanged. The rest of her labs are noted, including her elevated creatinine compared with baseline. All of this argues against acute CHF. In addition, supporting pulmonary etiology, she is much better after a duo nebulizer treatment and she declines offer for more aerosols. I do suspect this is her COPD/asthma, differential includes viral infection and exacerbation due to weather changes. On further questioning to the patient, the edema in her legs is not new; it is however worse in the past several weeks than usual. She is on Lasix 60 mg daily and states she has been on that for years because of the leg edema. I reviewed her prior echocardiogram from about 3 to 4 years ago, it showed mild diffuse LVH without evidence of congestive heart failure. She does not have a prosthetic for her right lower extremity, and she is in an electric wheelchair most of the time at home. Therefore we are not able to ambulate her in order to check for hypoxemia with ambulation. We took her off of the oxygen nasal cannula in the emergency department. She quickly desatted down to 88% before nurses placed her back on the nasal cannula. I ordered Solu-Medrol IV and had 2 more albuterol treatments performed and again checked the patient off of her oxygen. When the breathing treatments were finished, she quickly desatted down to 83% on room air, she was placed back on 3 L nasal cannula, and she equilibrated in the 86-88% range. I turned her up to 4 L and this kept her 90-92%. She sounds more wheezy than initially after the treatments, suggesting to me that initially she was pretty tight and now she is opening up some. She states these further helped her dyspnea. I think this is inconsistent with pulmonary embolus, although her DANYEL prevents safely performing CT angiography right now. Since she only wears oxygen at night, she may further desat when sleeping, plan is for inpatient further eval/tx. After discussing with hospitalist, patient dropped her oxygen saturations down into the 70s with good waveform while on the 4 L nasal cannula. Nursing put her on a nonrebreather but she was still in the low 80s. Therefore respiratory put her on BiPAP emergently, she is now 92% and states she is breathing better, tolerating it well. We will upgrade her admission to PCU. History & Record Review Additional record(s) reviewed:: Prior outpatient record (Echocardiogram) and Prior labs Lab Data Attestation: I reviewed the patient's lab results. Labs: Laboratory Results - last 24 hr 08/23/22 08/23/22 08/23/22 16:30 16:30 16:30 WBC 9.0 RBC 3.98 L Hgb 10.6 L Hct 34.3 L MCV 86.2 MCH 26.6 L MCHC 30.9 L RDW Std Deviation 49.2 H RDW Coeff of Genaro 15.8 H Plt Count 360 MPV 9.7 Immature Gran % (Auto) 0.400 Neut % (Auto) 57.7 Lymph % (Auto) 27.4 Andrew % (Auto) 11.5 H Eos % (Auto) 2.3 Baso % (Auto) 0.7 Absolute Neuts (auto) 5.2 Absolute Lymphs (auto) 2.45 Nucleated RBC % 0 Sodium 140 Potassium 3.3 L Chloride 103 Carbon Dioxide 31.0 Anion Gap 6 BUN 28 H Creatinine 1.97 H Estim Creat Clear Calc 32.33 Est GFR (MDRD) Af Amer 33 L Est GFR (MDRD) Non-Af 27 L BUN/Creatinine Ratio 14.2 Glucose 144 H Calcium 8.8 Troponin I High Sens 10 B-Natriuretic Peptide 23.5 Radiography Diagnostic Testing: Clinical Impression(s) from Imaging Studies Chest X-Ray 08/23/22 17:05 IMPRESSION: Poor inspiration with some bibasilar atelectasis. Electronically Signed: Mitch Aguilera MD at 17:49 EDT , Rhythm Strip Rhythm Strip: Sinus Tach Rate: 105 Ectopy: None EKG Initial EKG: Attestation: I personally reviewed and interpreted this EKG as follows: Interpretation: Sinus Rhythm, No Acute Injury Pattern and Non-Specific ST Changes (limited eval due to artifact from spinal stimulator) Prior EKG tracings: available for review (2018) Prior: Unchanged Critical Care Time Critical Care Time: Yes Critical care time (excluding procedures): 30-74 minutes (35 min), Including time spent:, Discussing w/Patient &/or Family/Prefitter, Discussing w/Consultants, Arranging Admission or Transfer and Performing Direct Patient Care at Bedside Discharge Plan Dx/Rx/DC Orders Clinical Impression: Acute exacerbation of chronic obstructive pulmonary disease (COPD), DANYEL (acute kidney injury), Hypoxemia, Acute respiratory failure with hypoxia Disposition Disposition: Acute Care [facility]
[2022-08-23] MEDS: Ipratropium/Albuterol Sulfate 3 ML AMPUL.NEB INHALATION (16:43)
[2022-08-23 16:52] LABS: Absolute Lymphocyte Count 2.45 X10^3/uL (0.83-4.51); Absolute Neutrophil Count 5.2 X10^3/uL (2.0-7.7); Basophil# 0.06 X10^3/uL; Basophil% 0.7 % (0-1); Eosinophil# 0.21 X10^3/uL; Eosinophils% 2.3 % (0-5); Hematocrit 34.3 % (37-47); Hemoglobin 10.6 g/dL (12.0-15.0); Lymphocyte # 2.45 X10^3/ul (0.83-4.51); Lymphocyte % 27.4 % (19-41); Mean Corp Hgb Conc 30.9 g/dL (32-36); Mean Corpuscular Hgb 26.6 pg (27.0-32.0); Mean Corpuscular Volume 86.2 fL (81-99); Mean Platelet Vol. 9.7 fl (6.2-12.0); Monocyte# 1.03 X10^3/uL; Monocyte% 11.5 % (0-10); NRBC Flagged by Analyzer 0 % (0-5); Neutrophil # 5.16 X10^3/uL (2.7-7.7); Neutrophil % 57.7 % (47-70); Platelet Count 360 K/mm3 (150-450); RBC Distribution Width CV 15.8 % (11.6-14.6); RBC Distribution Width SD 49.2 fl (35.1-43.9); Red Blood Count 3.98 M/mm3 (4.2-5.4)
--- NOTE | 2022-08-23 17:05 | RAD_ITS ---
STUDY: X-RAY CHEST REASON FOR EXAM: Female, 67 years old. sob TECHNIQUE: PA and lateral views of the chest. COMPARISON: None. FINDINGS: Poor inspiration with some bibasilar atelectasis. There is no demonstrated pleural abnormality. Normal size heart. Normal mediastinum and gage. Normal visualized pulmonary arteries. Normal visualized aortic arch and descending thoracic aorta. Spinal rods in the thoracic lumbar spine. Normal visualized ribs, clavicles, and shoulders. There is no demonstrated abnormality of the visualized soft tissue structures of the upper abdomen. RAD/Chest PA and Lateral IMPRESSION: Poor inspiration with some bibasilar atelectasis. Electronically Signed: Mitch Aguilera MD at 17:49 EDT ,
[2022-08-23 17:14] LABS: Anion Gap 6 (5-15); BUN 28 mg/dL (7-18); BUN/Creat Ratio 14.2 RATIO (10-20); Calcium,Total 8.8 mg/dL (8.5-10.1); Chloride 103 mmol/L (98-107); Creatinine, Serum 1.97 mg/dL (0.55-1.02); EST Glomerular Filtration Rate 27 mL/min (>60); Est Glom Filt Rate - Afr Amer 33 mL/min (>60); Estimated Creatinine Clearance 32.33 ml/min; Glucose 144 mg/dL (74-106); Potassium 3.3 mmol/L (3.5-5.1); Sodium Level 140 mmol/L (136-145); Troponin-I HS 10 pg/mL (3.0-54.0)
[2022-08-23 17:22] LABS: BNP,B-Type NATRIURETIC PEPTIDE 23.5 pg/mL (0-100)
[2022-08-23] MEDS: MethylPREDNISolone 125 MG/2 ML Vial IV (18:15)
[2022-08-23] MEDS: Albuterol 2.5 MG/3 ML VIAL.NEB. INHALATION ×2 (18:19)
--- NOTE | 2022-08-23 18:38 | ED.RN ---
placed on ra. given breathing treatment. sats 85% ra. pt given few minutes did not recover sats past 86%. placed on 2l sats 88% encouarged to take deep breaths in through nose pt tends to mouth breath. increaSED O2 TO 3l nc. sats 90/91% on 3l post breathing tx
--- NOTE | 2022-08-23 19:12 | PCM.HP.STD ---
HPI - General General Date of Admission: 08/23/22 Date of Service: 08/23/22 Chief Complaint: Shortness of breath HPI Narrative TAJ BLANK, is a 67 F with a significant history of right below the knee amputation; COPD and asthma on home nightly CPAP with 4 L nasal cannula oxygen; hypertension; congestive heart failure; CAD status post stent; thyroidectomy and on thyroid replacement who presents to the emergency department with 1 month history of shortness of breath above her baseline and which worsened on the day of presentation. Typically patient uses her albuterol inhaler which helps her but on the day of presentation her inhaler could not help her. She reported that about 3 weeks ago she completed a course of prednisone and then 3 days afterwards she was put on Levaquin. With steroids and Levaquin patient did not feel better. She reports cough usually nonproductive and occasionally productive of white sputum. She cannot describe whether her sputum is thick or light. She reports some wheezes. At the emergency department patient was originally 83% on room air. She was placed on supplemental oxygen. However oxygen saturation dipped into the 70s. He was transitioned onto nonrebreather mask and then onto BiPAP. FORMERLY [facility], [facility] Medical History Anxiety Asthma Chronic back pain COPD (chronic obstructive pulmonary disease) Depression Diverticulitis Fibromyalgia GERD (gastroesophageal reflux disease) Heart disease History of bronchitis History of heart attack History of pneumonia HTN (hypertension) Hypothyroidism Incisional hernia Nausea and vomiting Osteoarthritis Osteoporosis Sleep apnea Spinal stenosis spinal stimulator Thyroid disorder TIA (transient ischemic attack) Home Medications atorvastatin 80 mg tablet 80 mg PO QHS cholesterol 06/01/13 [History Last Taken 05/25/14 80 MG] clopidogrel 75 mg tablet 75 mg PO DAILY anti platelet 06/01/13 [History Last Taken 12/11/18] metoprolol tartrate 25 mg tablet 12.5 mg PO BID blood pressure 06/01/13 [History Last Taken 06/26/20 05:00] lorazepam 1 mg tablet (Ativan) 1 mg PO BID-TID PRN Anxiety 11/17/18 [History Last Taken Unknown] hydroxyzine HCl 50 mg tablet 50 mg PO QHS 12/01/18 [History Last Taken Unknown] duloxetine 60 mg capsule,delayed release 60 mg PO BID 06/19/20 [History Last Taken Unknown] albuterol sulfate 90 mcg/actuation aerosol inhaler 1 - 2 puff inhalation Q6H PRN PRN COPD #2 device 06/03/22 [Rx Last Taken Unknown] buspirone 7.5 mg tablet 7.5 mg PO BID 06/03/22 [History Last Taken Unknown] montelukast 10 mg tablet 10 mg PO QPM #90 tabs 06/03/22 [Rx Last Taken Unknown] diclofenac sodium 75 mg tablet,delayed release 75 mg PO BID 08/23/22 [History Last Taken Unknown] furosemide 40 mg tablet 60 mg PO DAILY 08/23/22 [History Last Taken Unknown] hydroxychloroquine 200 mg tablet 200 mg PO BID 08/23/22 [History Last Taken Unknown] ipratropium 0.5 mg-albuterol 3 mg (2.5 mg base)/3 mL nebulization soln 3 ml inhalation Q4H PRN SOB 08/23/22 [History Last Taken Unknown] levothyroxine 50 mcg tablet 50 mcg PO DAILY 08/23/22 [History Last Taken Unknown] liothyronine 5 mcg tablet 25 mcg PO DAILY 08/23/22 [History Last Taken Unknown] pregabalin 50 mg capsule 50 mg PO DAILY 08/23/22 [History Last Taken Unknown] tiotropium bromide 2.5 mcg/actuation mist for inhalation (Spiriva Respimat) 2 inh inhalation DAILY 08/23/22 [History Last Taken Unknown] topiramate 25 mg tablet 50 mg PO QHS 08/23/22 [History Last Taken Unknown] triamcinolone acetonide 0.1 % topical cream 1 applic topical BID 08/23/22 [History Last Taken Unknown] Allergy/AdvReac Type Severity Reaction Status Date / Time cefaclor [From Ceclor] Allergy Itching Verified 08/23/22 16:28 clarithromycin Allergy Hives Verified 08/23/22 16:28 doxycycline Allergy Itching Verified 08/23/22 16:28 Penicillins Allergy Hives Verified 08/23/22 16:28 Sulfa (Sulfonamide Allergy Hives Verified 08/23/22 16:28 Antibiotics) biotin AdvReac Unknown Unknown Verified 08/23/22 16:28 zolpidem [From Ambien] AdvReac Unknown mental Verified 08/23/22 16:28 issues Family History Father Asthma Heart disease Grandmother Breast cancer Diabetes Mother Heart disease COPD (chronic obstructive pulmonary disease) Other Cancer Surgical History H/O heart artery stent History of esophagogastroduodenoscopy (EGD) (~07/2018) History of incisional hernia repair (~12/20/18) History of incisional hernia repair Hx of cholecystectomy Previous back surgery S/P carpal tunnel release S/P correction of deviated nasal septum S/P hysterectomy S/P knee surgery Status post amputation of right foot Status post thyroidectomy Social History Smoking Status: Former smoker second hand exposure: Yes alcohol intake: never substance use type: does not use caffeine: Yes what type of physical activity do you participate in: none frequency: does not exercise ROS ROS Narrative Pertinent positives and pertinent negatives as noted in HPI. All other systems were reviewed and are negative Vital Signs Vital Signs Vital Signs: 08/23/22 16:22 08/23/22 16:37 08/23/22 16:53 Temperature 97.3 F L Temperature Source Temporal Pulse Rate 106 H 100 Respiratory Rate 32 H 24 H Respiratory Effort Normal Respiratory Depth Normal Respiratory Pattern Normal Blood Pressure 152/63 H Blood Pressure Mean 92 Pulse Ox 78 Oxygen Delivery Method Room Air Room Air Oxygen Flow Rate (L/min) 08/23/22 17:12 08/23/22 17:12 08/23/22 17:37 Temperature 97.5 F L Temperature Source Temporal Pulse Rate 102 H 102 H 95 Respiratory Rate 24 H 24 H 18 Respiratory Effort Respiratory Depth Respiratory Pattern Blood Pressure 111/56 L 111/56 L 118/92 H Blood Pressure Mean 74 74 100 Pulse Ox 93 93 95 Oxygen Delivery Method Nasal Cannula Nasal Cannula Nasal Cannula Oxygen Flow Rate (L/min) 5 5 5 08/23/22 18:07 08/23/22 18:08 08/23/22 18:20 Temperature Temperature Source Pulse Rate 94 Respiratory Rate 11 L Respiratory Effort Respiratory Depth Respiratory Pattern Blood Pressure Blood Pressure Mean Pulse Ox 88 91 Oxygen Delivery Method Room Air Nasal Cannula Oxygen Flow Rate (L/min) 2 08/23/22 18:37 08/23/22 18:33 08/23/22 19:05 Temperature Temperature Source Pulse Rate 95 Respiratory Rate 18 Respiratory Effort Respiratory Depth Respiratory Pattern Blood Pressure 90/68 Blood Pressure Mean 75 Pulse Ox 90 85 88 Oxygen Delivery Method Nasal Cannula Room Air Nasal Cannula Oxygen Flow Rate (L/min) 3 3 08/23/22 19:05 Temperature Temperature Source Pulse Rate Respiratory Rate Respiratory Effort Respiratory Depth Respiratory Pattern Blood Pressure Blood Pressure Mean Pulse Ox 91 Oxygen Delivery Method Nasal Cannula Oxygen Flow Rate (L/min) 4 Weight Weight: 73.9 kg Body Mass Index (BMI) 32.9 Physical Exam Narrative Physical exam: General: Well-nourished, well-developed. Head: Normocephalic, atraumatic, no tenderness Eyes: Vision is grossly intact. EOMI ENT, no trauma, moist mucous membranes, no rhinorrhea Neck: Nontender, No thyromegaly. CVS: Regular rate and rhythm. S1-S2 present. No murmur, gallop or rub. Respiratory : Patient on BiPAP. With diminished and coarse lung sounds. Abdomen: Soft, nontender, nondistended, normal bowel sounds, no masses : Deferred Back: Nontender, no CVA tenderness. Extremities: Right below the knee amputation. +1 pitting edema of the left leg. Skin: Normal color, no trauma, abrasions Neuro: Alert, oriented, cranial nerves II through XII grossly intact. Psychiatry: Normal mood. Normal affect. Not depressed. Not anxious. Results Lab / Micro Data Result Diagrams: 08/23/22 16:30 08/23/22 16:30 Labs: Laboratory Results - last 24 hr 08/23/22 16:30: WBC 9.0, RBC 3.98 L, Hgb 10.6 L, Hct 34.3 L, MCV 86.2, MCH 26.6 L, MCHC 30.9 L, RDW Std Deviation 49.2 H, RDW Coeff of Genaro 15.8 H, Plt Count 360, MPV 9.7, Immature Gran % (Auto) 0.400, Neut % (Auto) 57.7, Lymph % (Auto) 27.4, [place] % (Auto) 11.5 H, Eos % (Auto) 2.3, Baso % (Auto) 0.7, Absolute Neuts (auto) 5.2, Absolute Lymphs (auto) 2.45, Nucleated RBC % 0 08/23/22 16:30: Sodium 140, Potassium 3.3 L, Chloride 103, Carbon Dioxide 31.0, Anion Gap 6, BUN 28 H, Creatinine 1.97 H, Estim Creat Clear Calc 32.33, Est GFR (MDRD) Af Amer 33 L, Est GFR (MDRD) Non-Af 27 L, BUN/Creatinine Ratio 14.2, Glucose 144 H, Calcium 8.8, Troponin I High Sens 10 08/23/22 16:30: B-Natriuretic Peptide 23.5 Micro: Microbiology 08/23/22 16:30 Nasal Secretion SARS-CoV-2 & FLU Antigen (Rapid) - Final Rhythm Strip Rhythm Strip: Sinus Tach Rate: 105 Ectopy: None Radiology Impression Chest X-Ray 08/23/22 17:05 IMPRESSION: Poor inspiration with some bibasilar atelectasis. Electronically Signed: Mitch Aguilera MD at 17:49 EDT Reading Location ID and State: [facility] / [place] Tel , Service support , Assessment & Plan Assessment/Plan (1) Acute exacerbation of chronic obstructive pulmonary disease (COPD): (2) RAUL (obstructive sleep apnea): (3) DANYEL (acute kidney injury): (4) Acute respiratory failure with hypoxia: PLAN: Plan Acute on chronic hypoxemic and hypercapnic respiratory failure secondary to COPD exacerbation Doubt acute on chronic congestive heart failure because of low BNP of 23.5. ABG obtained with PO2 of 70. pH is 7.35 and PCO2 of 52.9. Radiologist impression of chest x-ray: Poor inspiration with some bibasilar atelectasis. Hospitalist independent interpretation of chest x-ray: Agrees with radiologist interpretation. Scheduled DuoNeb Albuterol as needed White count was normal. Procalcitonin ordered within low. Likely noninfectious. Placed on BiPAP at the emergency department, continued. Titrate as needed. Monitor BMP and CBC DANYEL on CKD Stage 3a On presentation creatinine was 1.97. Baseline creatinine is around 1.2. Likely secondary to overdiuresis at home. BUN was 28. BUN over creatinine 14.2. Likely ATN. Hold home Lasix. Hold home NSAIDs. Hypokalemia Potassium presentation was 3.3. Replace. Trend BMP. Heart failure with preserved ejection fraction Likely patient is stable on heart failure standpoint and all her symptoms from COPD exacerbation. Hypertension Blood pressure is erratic. Home blood pressure medication] continued Trend blood pressure and adjust blood pressure medications. DVT prophylaxis Subcutaneous Lovenox ordered. Charges/Coding Visit Charges Inpatient E&M: 83946 Init Hosp L3
--- NOTE | 2022-08-23 19:26 | ED.RN ---
THIS RN NOTICES THAT PT'S O2 SATS DROP TO 79%. THIS RN IN TO ASSESS PT AND INSTRUCTS PT TO TAKE DEEP BREATHS IN THROUGH THE NOSE TO FACILITATE MOVEMENT OF 02 VIA NC. THIS RN NOTES THAT PT DESATS MORE TO 73% AND A NONREBREATHER APPLIED AT 15L O2 WITH . RESPIRATORY CALLED. DR. SEARS NOTIFIED AND ORDER FOR BIPAP OBTAINED.
--- NOTE | 2022-08-23 19:45 | CPS ---
decreased o2 to 75%
[2022-08-23 20:21] LABS: Allen Test Positive; Base Excess 4 mmol/L (-2 to +2); Bicarbonate 29.3 mmol/L (22-26); Blood Gas Specimen Type ART; FI02 75; O2 Delivery Device BiPAP; PO2 70 mmHG (75-100); SITE R Radial; SO2 92 % (95-99); Total Carbon Dioxide 31 mmol/L; pCO2 52.9 mmHg (35-45); pH 7.35 (7.35-7.45)
--- NOTE | 2022-08-23 20:58 | ECHOD_ITS ---
Reason For Study: Dyspnea/SOB Procedure This was a 2D Doppler, Color Flow transthoracic echocardiogram. Technically difficult study, patient unable to hold still for testing due to anxiety and SOB. Patient sitting upright and on BIPAP. Exam performed portable in patient room. Left Ventricle Normal size and thickness. The left ventricular ejection fraction is 60 %. Normal diastology for age. Right Ventricle Normal right ventricle. Atria The left and right atria are normal. Mitral Valve The mitral valve is structurally normal. No prolapse or stenosis seen. Tricuspid Valve Normal tricuspid valve. Aortic Valve The aortic valve is not well visualized in the short axis view. There is no aortic stenosis. No aortic valve insufficiency. Pulmonic Valve The pulmonic valve is not well visualized. Great Vessels The aortic root is not well visualized. Pericardium/Pleural No pericardial effusion. Epicardial fat. MMode/2D Measurements & Calculations RVDd: 3.0 cm LA dimension: 3.7 cm LAV(MOD-bp): 30.0 ml LAV(MOD-bp) Indexed: 17.9 ml/m2 LAV(MOD-sp2): 38.9 ml LAV(MOD-sp4): 22.4 ml LA A4 area: 10.7 cm2 RA A4 area: 9.6 cm2 Time Measurements MV dec time: 0.15 sec Doppler Measurements & Calculations MV E max eloy: 93.8 cm/sec Lat Peak E' Eloy: 13.7 cm/sec Med Peak E' Eloy: 11.8 cm/sec MV A max eloy: 111.0 cm/sec E/E' lat: 6.8 E/E' med: 7.9 MV E/A: 0.84 MV V2 max: 116.3 cm/sec Ao V2 max: 144.5 cm/sec LV V1 max: 105.0 cm/sec MV max P.4 mmHg Ao max P.4 mmHg LV V1 max P.4 mmHg MV V2 mean: 78.7 cm/sec MV mean P.9 mmHg MV V2 VTI: 20.1 cm ECHO/Echo Complete Interpretation Summary Technically difficult study, The left ventricular ejection fraction is 60 %. Ordering Physician: Samuel Goldsmith Referring Physician: Chrystal Michel Performed By: Chad Noonan RCS
[2022-08-23] MEDS: Topiramate 50 MG Tablet PO (21:53)
[2022-08-23] MEDS: Atorvastatin Calcium 80 MG Tablet PO (21:54)
[2022-08-23] MEDS: DULoxetine Hcl 60 MG Capsule PO (21:54)
[2022-08-23] MEDS: Hydroxychloroquine 200 MG Tablet PO (21:54)
[2022-08-23] MEDS: busPIRone 5 MG Tablet 7.5 MG PO (21:54)
[2022-08-23] MEDS: Metoprolol Tartrate 25 MG Tablet 12.5 MG PO (21:55)
[2022-08-23 21:58] LABS: Procalcitonin 0.16 ng/mL (0.00-0.09)
[2022-08-23] MEDS: Montelukast 10 MG Tablet PO (21:58)
[2022-08-23] MEDS: hydrOXYzine PAM 25 MG Capsule 50 MG PO (21:58)
[2022-08-24] VITALS (44 sets, daily range): BP systolic 94–173; BP diastolic 43–145; PULSE 80–116; RESP 12–30; TEMP 35.9–36.7; O2SAT 76–100; BMI 35.0
[2022-08-24] MEDS: Levothyroxine 50 MCG Tablet PO (05:22)
[2022-08-24] MEDS: 0.9% Saline Lock 10 ML Syringe IV ×2 (05:22→22:53)
[2022-08-24] MEDS: Liothyronine 5 MCG Tablet 25 MCG PO (05:22)
[2022-08-24] MEDS: Methylprednisolone Sod Succ 40 MG/ML VIAL IV ×3 (05:22→20:07)
[2022-08-24] MEDS: Potassium Chloride Oral Tablet 20 MEQ 40 MEQ PO (05:38)
[2022-08-24 06:38] LABS: Absolute Lymphocyte Count 0.77 X10^3/uL (0.83-4.51); Absolute Neutrophil Count 4.9 X10^3/uL (2.0-7.7); Basophil# 0.01 X10^3/uL; Basophil% 0.2 % (0-1); Hematocrit 32.7 % (37-47); Lymphocyte # 0.77 X10^3/ul (0.83-4.51); Lymphocyte % 13.3 % (19-41); Mean Corp Hgb Conc 30.6 g/dL (32-36); Mean Corpuscular Hgb 26.2 pg (27.0-32.0); Mean Corpuscular Volume 85.6 fL (81-99); Mean Platelet Vol. 9.7 fl (6.2-12.0); Monocyte# 0.08 X10^3/uL; Monocyte% 1.4 % (0-10); NRBC Flagged by Analyzer 0 % (0-5); Neutrophil # 4.89 X10^3/uL (2.7-7.7); Neutrophil % 84.6 % (47-70); Platelet Count 363 K/mm3 (150-450); RBC Distribution Width CV 15.8 % (11.6-14.6); RBC Distribution Width SD 48.8 fl (35.1-43.9); Red Blood Count 3.82 M/mm3 (4.2-5.4); White Blood Count 5.8 K/mm3 (4.4-11.0)
[2022-08-24 06:58] LABS: Anion Gap 6 (5-15); BUN 27 mg/dL (7-18); BUN/Creat Ratio 19.9 RATIO (10-20); Calcium,Total 9.1 mg/dL (8.5-10.1); Chloride 106 mmol/L (98-107); Creatinine, Serum 1.36 mg/dL (0.55-1.02); EST Glomerular Filtration Rate 41 mL/min (>60); Est Glom Filt Rate - Afr Amer 50 mL/min (>60); Estimated Creatinine Clearance 46.58 ml/min; Glucose 143 mg/dL (74-106); Potassium 3.9 mmol/L (3.5-5.1); Sodium Level 139 mmol/L (136-145)
[2022-08-24] MEDS: Ipratropium/Albuterol Sulfate 3 ML AMPUL.NEB INHALATION ×4 (07:39→23:22)
[2022-08-24] MEDS: Enoxaparin 40 MG/0.4 ML Syringe SC (08:34)
--- NOTE | 2022-08-24 08:36 | PCM.PN.HOSP ---
Reason for Visit Reason for Visit: Diagnoses Obstructive sleep apnea (adult) (pediatric) (08/23/22) Chronic obstructive pulmonary disease with (acute) exacerbation (08/23/22) Acute respiratory failure with hypoxia (08/23/22) Acute kidney failure, unspecified (08/23/22) Subjective Subjective Reports feeling better than she did on admission however this morning was off BiPAP for a little while but then had a coughing fit and desaturated Did not respond well to nonrebreather or high flow and had to be put back on BiPAP with several minutes to regain saturations. Does have some swelling in her left lower extremity which she reports been present over the past month Objective Data Objective Data Vital Signs: Vital Signs Temp Pulse Resp BP Pulse Ox O2 Del Method O2 Flow Rate 97.7 F L 87 20 H 148/65 H 91 Bi-pap 10 08/24/22 08:13 08/24/22 08:13 08/24/22 08:13 08/24/22 08:13 08/24/22 08:33 08/24/22 08:27 08/24/22 08:22 FiO2 45 08/24/22 08:33 Oxygen Flow Rate (L/min) 10 Oxygen Delivery Method Bi-pap Weight: 73.5 kg Body Mass Index (BMI) 35.0 Intake & Output: Intake and Output for Last 24 Hours 08/22/22 08/23/22 08/24/22 23:59 23:59 23:59 Intake Total 60 / 60 Output Total 250 / 250 Balance 60 / 60 -250 / -250 Lab / Micro Data Result Diagrams: 08/24/22 05:17 08/24/22 05:17 Labs: Laboratory Results - last 24 hr 08/23/22 16:30: WBC 9.0, RBC 3.98 L, Hgb 10.6 L, Hct 34.3 L, MCV 86.2, MCH 26.6 L, MCHC 30.9 L, RDW Std Deviation 49.2 H, RDW Coeff of Genaro 15.8 H, Plt Count 360, MPV 9.7, Immature Gran % (Auto) 0.400, Neut % (Auto) 57.7, Lymph % (Auto) 27.4, [place] % (Auto) 11.5 H, Eos % (Auto) 2.3, Baso % (Auto) 0.7, Absolute Neuts (auto) 5.2, Absolute Lymphs (auto) 2.45, Nucleated RBC % 0 08/23/22 16:30: Sodium 140, Potassium 3.3 L, Chloride 103, Carbon Dioxide 31.0, Anion Gap 6, BUN 28 H, Creatinine 1.97 H, Estim Creat Clear Calc 32.33, Est GFR (MDRD) Af Amer 33 L, Est GFR (MDRD) Non-Af 27 L, BUN/Creatinine Ratio 14.2, Glucose 144 H, Calcium 8.8, Troponin I High Sens 10 08/23/22 16:30: B-Natriuretic Peptide 23.5 08/23/22 16:30: Procalcitonin 0.16 H 08/24/22 05:17: WBC 5.8, RBC 3.82 L, Hgb 10.0 L, Hct 32.7 L, MCV 85.6, MCH 26.2 L, MCHC 30.6 L, RDW Std Deviation 48.8 H, RDW Coeff of Genaro 15.8 H, Plt Count 363, MPV 9.7, Immature Gran % (Auto) 0.500, Neut % (Auto) 84.6 H, Lymph % (Auto) 13.3 L, [place] % (Auto) 1.4, Eos % (Auto) 0.0, Baso % (Auto) 0.2, Absolute Neuts (auto) 4.9, Absolute Lymphs (auto) 0.77 L, Nucleated RBC % 0 08/24/22 05:17: Sodium 139, Potassium 3.9, Chloride 106, Carbon Dioxide 27.0, Anion Gap 6, BUN 27 H, Creatinine 1.36 H, Estim Creat Clear Calc 46.58, Est GFR (MDRD) Af Amer 50 L, Est GFR (MDRD) Non-Af 41 L, BUN/Creatinine Ratio 19.9, Glucose 143 H, Calcium 9.1 Micro: Microbiology 08/23/22 20:45 Mucosa - Nasopharyngeal Respiratory Panel (PCR) - Final 08/23/22 16:30 Nasal Secretion SARS-CoV-2 & FLU Antigen (Rapid) - Final ABG Data ABG results: ABG 08/23/22 20:16 Specimen Type ART Sample Site R Radial pH 7.35 Bicarbonate Actual 29.3 H Total CO2 31 Base Excess 4 H O2 Saturation 92 L O2 % 75 ABG pCO2 52.9 H ABG pO2 70 L Luke Test Positive O2 Delivery Device BiPAP Clinical Comments 16 9 75% Radiography Diagnostic Testing: Radiology Impression Chest X-Ray 08/23/22 17:05 IMPRESSION: Poor inspiration with some bibasilar atelectasis. Electronically Signed: Mitch Aguilera MD at 17:49 EDT , Rhythm Strip Rhythm Strip: Sinus Tach Rate: 105 Ectopy: None Physical Exam Narrative General: Alert, oriented, resting on BiPAP HEENT: Atraumatic, normocephalic Eyes: Anicteric, normal conjunctiva, extraocular movements grossly intact Neck: Supple Respiratory: On BiPAP somewhat poor airflow Cardiovascular: Regular rate and rhythm GI: Soft, nontender, nondistended Extremities: Left lower extremity with 1+ edema, right lower extremity amputation noted Musculoskeletal: Moving all extremities Neuro: No overt focal neurological deficits Skin: No rashes appreciated Psych: Cooperative Assessment & Plan Assessment/Plan (1) Acute exacerbation of chronic obstructive pulmonary disease (COPD): (2) RAUL (obstructive sleep apnea): (3) DANYEL (acute kidney injury): (4) Acute respiratory failure with hypoxia: PLAN: Plan #Acute on chronic hypoxemic and hypercapnic respiratory failure secondary to COPD exacerbation -Originally 83% on room air and was placed on supplemental oxygen but O2 dipped to 70s and she was transitioned onto nonrebreather and then subsequently to BiPAP -ABG obtained with PO2 of 70. pH is 7.35 and PCO2 of 52.9. -Less likely aechf 2/2 low BNP and cxr w/out signs of overload but on further review difficult to exclude infiltrate -Scheduled DuoNeb -Albuterol as needed -White count was normal. Procalcitonin ordered within low. Likely noninfectious. -Placed on BiPAP at the emergency department, continued. Titrate as needed. -Follows with Dr. Page on an outpatient basis -Most recent FEV1 68% of predicted -08/24: Was tachypneic overnight but overall had done fair on BiPAP, attempted to transition to high flow this a.m. but even despite 10 L pulse ox 76% and she was placed back on BiPAP with some improvement. On DuoNebs every 4 and IV Methylpred. Check D-dimer, would like to avoid CTA if possible due to kidney function however patient would not be able to participate in VQ scan at present. Venous duplex ordered overnight however if D-dimer elevated may consider CTA especially given venous duplex may not be done until tomorrow. If D-dimer negative will likely get Noncon CT. Repeat echo ordered. COVID and flu negative. QTc and EMS was not prolonged however with prolonged on ED EKG. Will recheck EKG and if QTc not prolonged will start Levaquin. Levofloxacin as an outpatient multiple times and given current BiPAP dependence Levaquin is reasonable, being monitored on telemetry. Monitor magnesium daily. We will hold hydroxyzine as that is also a QTc prolonging agent. Of note she was started on Ativan yesterday which is suboptimal with her age and comorbidities #DANYEL on CKD Stage 3a -On presentation creatinine was 1.97. Baseline creatinine is around 1.2 -Likely secondary to overdiuresis at home,BUN was 28, BUN over creatinine 14.2 -Likely ATN. -Hold home Lasix. Hold home NSAIDs. -08/24: Improved closer to baseline today #Heart failure with preserved ejection fraction -Likely patient is stable on heart failure standpoint and all her symptoms from COPD exacerbation. -08/24: Repeat echo ordered. Daily weights. Lasix were held due to DANYEL and suspected overdiuresis, monitor volume status closely #History of RAUL -NIPPV at home, on BiPAP at present -At her visit 06/03/2022 in the pulm office her compliance was 100% with her and PPV with current settings of AutoPap 8 to 10 cm of water with residual AHI of 0.2 events per hour and no apparent leaks #Hypertension -Blood pressure is erratic. -Home blood pressure medication continued -Trend blood pressure and adjust blood pressure medications. #Hypothyroidism -TSH 0.02 on 07/30/2022 with a free T4 of 0.83 and a free T3 of 1.5. 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 Charges/Coding Visit Charges Inpatient E&M: 61018 Subs Hosp L2
--- NOTE | 2022-08-24 08:53 | VDLE_ITS ---
Reason For Study: Shortness of breath RIGHT LEFT GSV is normal. GSV is normal. CFV is compressible, spontaneous, phasic, CFV is compressible, spontaneous, phasic, competent and demonstrates normal competent, and demonstrates normal augmentation. augmentation. FV is compressible, spontaneous, phasic, FV is compressible, spontaneous, phasic, competent and demonstrates normal competent and demonstrates normal augmentation. augmentation. POP V is compressible, spontaneous, phasic, POP V is compressible, spontaneous, phasic, competent and demonstrates normal competent and demonstrates normal augmentation. augmentation. T/P Trunk is compressible. T/P Trunk is compressible. Right BKA. PTV is compressible. Procedure LT PerV is compressible. This is a venous duplex using B-mode, color flow and spectral Doppler. Exam performed portable in patient room. A preliminary report was called and/or faxed to [facility]. VL/Venous Duplex US - [place] Extrem Interpretation Summary Deep veins of the bilateral lower extremities are patent and compressible segme ntally. There is no evidence of bilateral lower extremity deep vein thrombosis. The bilateral great saphenous veins appear patent and compressible segmentally. Ordering Physician: Allyssa Gardiner Referring Physician: Chrystal Michel Performed By: Patricia Hinton RVT
--- NOTE | 2022-08-24 09:38 | EKG12_ITS ---
Test Reason : Blood Pressure : / mmHG Vent. Rate : 096 BPM Atrial Rate : 096 BPM P-R Int : 184 ms QRS Dur : 102 ms QT Int : 396 ms P-R-T Axes : 086 052 -05 degrees QTc Int : 500 ms Normal sinus rhythm Low voltage QRS Nonspecific ST and T wave abnormality Abnormal ECG When compared with ECG of 23-AUG-2022 16:48, MANUAL COMPARISON REQUIRED, DATA IS UNCONFIRMED Confirmed by MIKE HIRSCH, BIENVENIDO ([id number]), writer editor SYLVIA NANCE ([id number]) on 08/26/2022 11:47:43 AM Referred By: YAJAIRA Confirmed By:BIENVENIDO MCKEON MD
[2022-08-24 09:42] LABS: Lactic Acid 0.8 mmol/L (0.4-1.9)
[2022-08-24 09:49] LABS: Free T3 2.7 pg/mL (2.18-3.98); T4 Free Direct 0.95 ng/dL (0.76-1.46); Thyroid Stim Hormone (TSH) 0.06 uIU/mL (0.358-3.74)
[2022-08-24 10:15] LABS: D-Dimer Quantitative (DVT/PE) 0.62 FEU/ug/m (0.27-0.49)
[2022-08-24 10:26] LABS: Base Excess 1 mmol/L (-2 to +2); Bicarbonate 26.7 mmol/L (22-26); Blood Gas Specimen Type ART; FI02 55; Mode BiLevel; O2 Delivery Device BiPAP; PO2 92 mmHG (75-100); SITE L Radial; SO2 96 % (95-99); Total Carbon Dioxide 28 mmol/L; pCO2 50.7 mmHg (35-45); pH 7.33 (7.35-7.45)
--- NOTE | 2022-08-24 10:31 | CT_ITS ---
EXAM: CT CHEST WITHOUT INTRAVENOUS CONTRAST CLINICAL INDICATION: worsening hypoxia TECHNIQUE: Helically acquired images were obtained of the chest without intravenous contrast. This CT exam was performed using one or more of the following dose reduction techniques: automated exposure control, adjustment of the mA and/or kV according to patient size, and/or use of iterative reconstruction technique. RADIATION DOSE: CTDIvol = 17.45 mGy, DLP = 636.73 mGy-cm COMPARISON: 10/03/2018 FINDINGS: LUNGS AND PLEURAL SPACES: There is evidence for centrilobular emphysema. Marked hyperexpansion of the lungs. Probable chronic atelectasis of much of the right middle lobe. No definite mass. No pneumothorax. No gross acute infiltrates. No gross effusions. HEART: Unremarkable. No pericardial effusion. Normal heart size. Heavily calcified coronary arteries. MEDIASTINUM: Unremarkable. No mediastinal or hilar adenopathy. Esophagus is unremarkable. No hiatal hernia. THYROID: Unremarkable. No thyroid lesions. BONES/JOINTS: Extensive postsurgical and degenerative changes throughout the spine. Stable severe compression fracture of T8. Stable postsurgical changes and vertebral body prosthesis of T12. Stable posterior fixation hardware of the thoracolumbar spine. CT/Chest without Contrast IMPRESSION: 1. Moderately severe centrilobular emphysema with no definite acute chest disease. Atelectasis of most of the right middle lobe. 2. Other chronic findings as above, stable. Electronically Signed: Alok Adams MD at 18:33 EDT ,
[2022-08-24] MEDS: Magnesium Sulfate 4gm/100mL 4 GM/100 ML IV.SOLN. IV (13:58)
--- NOTE | 2022-08-24 14:12 | CPS ---
pt continually desats into the 70's from hyperventilating during Anxiety/panic attacks. RN contacting DR for anxiety.
[2022-08-24] MEDS: LORazepam 2 MG/ML Syringe 0.25 MG IV ×2 (14:24→22:52)
--- NOTE | 2022-08-24 17:05 | PCM.HOSP.N ---
Hospitalist Note Patient has been BiPAP dependent, D-dimer obtained and was 0.62 however given her age this would be below the D-dimer cut off when adjusted for her age of [address] scan without contrast obtained especially in light of her CKD. Official read pending however it appears she does have pneumonia on the right side. Her QTc was 500 and she is on hydroxychloroquine and given her medication allergies she was started on cefepime, do not see an indication for MRSA coverage at this time. Spoke with patient's RN and O2 sat up to 98% on the FiO2 of 60 which is improved from earlier. Continue antibiotics, steroids, nebs. She has intermittently been anxious and did get a small one-time dose of Ativan, can always repeat dose and she does take Ativan p.o. as needed at home however given concern for decreasing respiratory drive (noted also pt is DNI) would prefer to be cautious in small increments.
[2022-08-24] MEDS: Hydroxychloroquine 200 MG Tablet PO (17:19)
[2022-08-24] MEDS: Atorvastatin Calcium 80 MG Tablet PO (20:05)
[2022-08-24] MEDS: busPIRone 5 MG Tablet 7.5 MG PO (20:05)
[2022-08-24] MEDS: DULoxetine Hcl 60 MG Capsule PO (20:05)
[2022-08-24] MEDS: Metoprolol Tartrate 25 MG Tablet 12.5 MG PO (20:06)
[2022-08-24] MEDS: Topiramate 50 MG Tablet PO (20:06)
[2022-08-24] MEDS: Montelukast 10 MG Tablet PO (20:07)
--- NOTE | 2022-08-24 20:18 | NURSING ---
Pt requesting to go back on bipap. HS meds given early prior to bipap application.
[2022-08-24] MEDS: guaiFENesin 10 ML UDC (200MG/10ML) PO (22:52)
--- NOTE | 2022-08-24 23:00 | NURSING ---
Pt c/o severe SOB and anxiety, especially d/t coughing with the bipap. Pt reassured and taken off bipap onto [address] Goldsmith notified and x1 order for ativan given, as well as order for robitussin. Medications given to pt, and placed back on the bipap. Tolerating okay at this time.
[2022-08-25] VITALS (23 sets, daily range): BP systolic 92–158; BP diastolic 47–128; PULSE 78–106; RESP 12–31; TEMP 35.9–37.8; O2SAT 87–99; BMI 34.5
--- NOTE | 2022-08-25 01:43 | RAD_ITS ---
INDICATION: SOB -- portable EXAMINATION/TECHNIQUE: X-RAY - XR Chest 1 View AP portable. 1:48 AM COMPARISON: 08/23/2022 FINDINGS: LINES/DEVICES: None. LUNGS: No consolidation. No pneumothorax. MEDIASTINUM: Aorta is atherosclerotic. CARDIAC SILHOUETTE: Not enlarged. BONES AND SOFT TISSUES: Surgical hardware in the thoracolumbar spine. RAD/Chest 1 View (Portable) IMPRESSION: No evidence of active intrathoracic disease. Electronically Signed: Cindi Sarah MD at 3:05 EDT ,
[2022-08-25] MEDS: LORazepam 2 MG/ML Syringe 1 MG IV (02:32)
[2022-08-25] MEDS: Furosemide 40 MG/4 ML Vial IV (02:32)
[2022-08-25] MEDS: Methylprednisolone Sod Succ 40 MG/ML VIAL IV ×3 (04:55→20:36)
[2022-08-25] MEDS: Liothyronine 5 MCG Tablet 25 MCG PO (04:55)
[2022-08-25] MEDS: Levothyroxine 50 MCG Tablet PO (04:56)
[2022-08-25 05:46] LABS: Absolute Lymphocyte Count 2.06 X10^3/uL (0.83-4.51); Absolute Neutrophil Count 13.9 X10^3/uL (2.0-7.7); Basophil# 0.02 X10^3/uL; Basophil% 0.1 % (0-1); Hematocrit 35.6 % (37-47); Hemoglobin 10.8 g/dL (12.0-15.0); Lymphocyte # 2.06 X10^3/ul (0.83-4.51); Lymphocyte % 11.8 % (19-41); Mean Corp Hgb Conc 30.3 g/dL (32-36); Mean Corpuscular Hgb 26.2 pg (27.0-32.0); Mean Corpuscular Volume 86.4 fL (81-99); Mean Platelet Vol. 9.6 fl (6.2-12.0); Monocyte# 1.28 X10^3/uL; Monocyte% 7.4 % (0-10); NRBC Flagged by Analyzer 0 % (0-5); Neutrophil # 13.94 X10^3/uL (2.7-7.7); Neutrophil % 80.1 % (47-70); Platelet Count 371 K/mm3 (150-450); RBC Distribution Width CV 15.4 % (11.6-14.6); RBC Distribution Width SD 48.8 fl (35.1-43.9); Red Blood Count 4.12 M/mm3 (4.2-5.4); White Blood Count 17.4 K/mm3 (4.4-11.0)
[2022-08-25 06:11] LABS: ALB/GLOB Ratio 0.8 RATIO (0.9-2.4); AST(SGOT) 23 U/L (15-37); Alanine Aminotransfer ALT/SGPT 22 U/L (13-56); Albumin, Serum 3.3 g/dL (3.2-5.0); Alkaline Phosphatase 82 U/L (45-117); Anion Gap 9 (5-15); BUN 27 mg/dL (7-18); BUN/Creat Ratio 20.9 RATIO (10-20); Calcium,Total 9.1 mg/dL (8.5-10.1); Chloride 108 mmol/L (98-107); Creatinine, Serum 1.29 mg/dL (0.55-1.02); EST Glomerular Filtration Rate 44 mL/min (>60); Est Glom Filt Rate - Afr Amer 53 mL/min (>60); Estimated Creatinine Clearance 48.43 ml/min; Globulin 4.1 g/dL (2.2-4.2); Glucose 140 mg/dL (74-106); Magnesium 3.2 mg/dL (1.6-2.6); Potassium 4.2 mmol/L (3.5-5.1); Protein, Total 7.4 g/dL (6.4-8.2); Sodium Level 143 mmol/L (136-145)
[2022-08-25] MEDS: Ipratropium/Albuterol Sulfate 3 ML AMPUL.NEB INHALATION ×5 (07:30→23:45)
[2022-08-25] MEDS: Triamcinolone Acetonide 0.1% Cream 15 gm 1 APPLIC TOPICAL ×2 (07:56→20:36)
[2022-08-25] MEDS: DULoxetine Hcl 60 MG Capsule PO ×2 (07:56→20:35)
[2022-08-25] MEDS: Pregabalin 50 MG Capsule PO (07:56)
[2022-08-25] MEDS: Enoxaparin 40 MG/0.4 ML Syringe SC (07:57)
[2022-08-25] MEDS: busPIRone 5 MG Tablet 7.5 MG PO (07:58)
[2022-08-25] MEDS: Metoprolol Tartrate 25 MG Tablet 12.5 MG PO ×2 (07:58→20:34)
--- NOTE | 2022-08-25 07:58 | PCM.PN.HOSP ---
Reason for Visit Reason for Visit: Diagnoses Obstructive sleep apnea (adult) (pediatric) (08/23/22) Chronic obstructive pulmonary disease with (acute) exacerbation (08/23/22) Acute respiratory failure with hypoxia (08/23/22) Acute kidney failure, unspecified (08/23/22) Subjective Subjective Follow-up for shortness of breath and hypoxia, acute on chronic hypoxic and hypercarbic combined respiratory failure Objective Data Objective Data Vital Signs: Vital Signs Temp Pulse Resp BP Pulse Ox O2 Del Method O2 Flow Rate 96.7 F L 92 27 H 129/70 H 94 Bi-pap 15 08/25/22 07:00 08/25/22 07:00 08/25/22 07:00 08/25/22 07:00 08/25/22 07:00 08/25/22 07:00 08/25/22 03:00 FiO2 60 08/25/22 07:00 Oxygen Flow Rate (L/min) 15 Oxygen Delivery Method Bi-pap Weight: 159 lb 13.362 oz Body Mass Index (BMI) 34.5 Intake & Output: Intake and Output for Last 24 Hours 08/23/22 08/24/22 08/25/22 23:59 23:59 23:59 Intake Total 60 / 60 840 / 960 320 / 320 Output Total 800 / 1100 1500 / 1500 Balance 60 / 60 40 / -140 -1180 / -1180 Lab / Micro Data Result Diagrams: 08/25/22 05:31 08/25/22 05:31 Labs: Laboratory Results - last 24 hr 08/24/22 08:52: D-Dimer Quant (PE/DVT) 0.62 H* 08/24/22 08:52: TSH 0.06 L, Free T4 0.95, Free T3 pg/dL 2.7 08/24/22 08:52: Lactic Acid 0.8 08/25/22 05:31: WBC 17.4 H, RBC 4.12 L, Hgb 10.8 L, Hct 35.6 L, MCV 86.4, MCH 26.2 L, MCHC 30.3 L, RDW Std Deviation 48.8 H, RDW Coeff of [place] 15.4 H, Plt Count 371, MPV 9.6, Immature Gran % (Auto) 0.600, Neut % (Auto) 80.1 H, Lymph % (Auto) 11.8 L, [place] % (Auto) 7.4, Eos % (Auto) 0.0, Baso % (Auto) 0.1, Absolute Neuts (auto) 13.9 H, Absolute Lymphs (auto) 2.06, Nucleated RBC % 0 08/25/22 05:31: Sodium 143, Potassium 4.2, Chloride 108 H, Carbon Dioxide 26.0, Anion Gap 9, BUN 27 H, Creatinine 1.29 H, Estim Creat Clear Calc 48.43, Est GFR (MDRD) Af Amer 53 L, Est GFR (MDRD) Non-Af 44 L, BUN/Creatinine Ratio 20.9 H, Glucose 140 H, Calcium 9.1, Magnesium 3.2 H, Total Bilirubin 0.20, AST 23, ALT 22, Alkaline Phosphatase 82, Total Protein 7.4, Albumin 3.3, Globulin 4.1, Albumin/Globulin Ratio 0.8 L Micro: Microbiology 08/23/22 20:45 Mucosa - Nasopharyngeal Respiratory Panel (PCR) - Final 08/23/22 16:30 Nasal Secretion SARS-CoV-2 & FLU Antigen (Rapid) - Final ABG Data ABG results: ABG 08/24/22 10:18 Specimen Type ART Sample Site L Radial pH 7.33 L Bicarbonate Actual 26.7 H Total CO2 28 Base Excess 1 O2 Saturation 96 O2 % 55 ABG pCO2 50.7 H ABG pO2 92 Luke Test N/A O2 Delivery Device BiPAP Vent Mode BiLevel Radiography Diagnostic Testing: Radiology Impression Chest CT 08/24/22 10:31 IMPRESSION: 1. Moderately severe centrilobular emphysema with no definite acute chest disease. Atelectasis of most of the right middle lobe. 2. Other chronic findings as above, stable. Electronically Signed: Alok Adams MD at 18:33 EDT , Chest X-Ray 08/25/22 01:43 IMPRESSION: No evidence of active intrathoracic disease. Electronically Signed: Cindi Sarah MD at 3:05 EDT , Rhythm Strip Rhythm Strip: Sinus Tach Rate: 105 Ectopy: None Physical Exam Narrative Patient has protracted history of centrilobular emphysema and chronic combined respiratory failure on 4 L of home oxygen, CPAP Seen and examined. Physical exam General: Alert, Oriented x3, Cooperative HEENT: Atraumatic, PERRLA, EOMI, Normocephalic Oral: No Gingival or Mucosal Lesions/ Ulcerations Neck: Supple, No JVD, Negative Carotid Bruits Lungs: Air entry severely diminished in bilateral lung bases. Dyspnea at rest. On BiPAP Cardiovascular: Regular rate, Regular Rhythm, Normal S1, Normal S2, No murmurs Abdomen: Bowel Sounds Present, Soft, Non Tender, Non-Distended : No renal angle tenderness. No suprapubic tenderness. Extremities: No edema, Capillary Refill Less than 3 Seconds Skin: No stump ulcer. Musculoskeletal: Right BKA. No Tenderness to Palpation of Joints or Extremities Neurological: Cranial nerves II-XII grossly intact, DTR 2+/4 and Symmetrical, Neuro grossly intact Psych/Mental Status: Flat affect. Assessment & Plan Assessment/Plan (1) Acute exacerbation of chronic obstructive pulmonary disease (COPD): (2) RAUL (obstructive sleep apnea): (3) DANYEL (acute kidney injury): (4) Acute respiratory failure with hypoxia: PLAN: Plan #Acute on chronic hypoxemic and hypercapnic respiratory failure secondary to COPD exacerbation -Originally 83% on room air and was placed on supplemental oxygen but O2 dipped to 70s and she was transitioned onto nonrebreather and then subsequently to BiPAP -ABG obtained with PO2 of 70.? pH is 7.35 and PCO2 of 52.9. Patient has low BNP and chest x-ray did not show features of fluid overload therefore acute exacerbation of heart failure less likely. -Less likely aechf 2/2 low BNP and cxr w/out signs of overload but on further review difficult to exclude infiltrate -Scheduled DuoNeb -Albuterol as needed -White count was normal.? Procalcitonin ordered within low.? Likely noninfectious. -Placed on BiPAP at the emergency department, continued.? Titrate as needed. -Follows with Dr. Page on an outpatient basis -Most recent FEV1 68% of predicted 08/25: Patient on BiPAP 60% FiO2 16/9, respiratory rate 12. Patient is still short of breath. Continue DuoNeb and IV Solu-Medrol. Patient also not able to participate in VQ scan. On IV cefepime #DANYEL on CKD Stage 3a -On presentation creatinine was 1.97.? Baseline creatinine is around 1.2 -Likely secondary to overdiuresis at home,BUN was 28, BUN over creatinine 14.2 -Likely ATN. -Hold home Lasix.? Hold home NSAIDs. -08/25: Creatinine 1.29, estimated creatinine clearance 48 mill per minute. Her baseline is around 1.13. #Heart failure with preserved ejection fraction -Likely patient is stable on heart failure standpoint and all her symptoms from COPD exacerbation. -08/25: Echo reported EF 60% with normal diastolic for age. Normal right ventricle. Normal right and left atria. Technically difficult study normal tricuspid valve. No aortic stenosis or insufficiency. Heart failure core measures including intake and output, fluid restriction less than 1500 mL, daily weight monitoring, kidney and electrolytes monitoring #History of RAUL -NIPPV at home, on BiPAP at present -At her visit 06/03/2022 in the pulm office her compliance was 100% with her and PPV with current settings of AutoPap 8 to 10 cm of water with residual AHI of 0.2 events per hour and no apparent leaks #Hypertension -Blood pressure is erratic. -Home blood pressure medication continued -Trend blood pressure and adjust blood pressure medications. #Hypothyroidism -TSH 0.02 on 07/30/2022 with a free T4 of 0.83 and a free T3 of 1.5.? 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 Charges/Coding Visit Charges Inpatient E&M: 64214 Subs Hosp L2
[2022-08-25] MEDS: Hydroxychloroquine 200 MG Tablet PO (07:59)
[2022-08-25] MEDS: Clopidogrel Bisulfate 75 MG Tablet PO (07:59)
--- NOTE | 2022-08-25 10:35 | CASEMGMT ---
RN JESSICA Face to Face with patient for initial transition planning/care coordination assessment. RN CM introduced self and role at [facility]. Patient lying in bed, alert and oriented, at bedside. Patient willing to participate in assessment and is able to answer all questions appropriately. Care providers, pharmacy, and demographics verified. Patient wishes to discharge home, denies need for home health at this time. Patient states she has no further needs or concerns at this time. CM to follow for discharge planning needs that may arise. PCP: Anand Specialists: Camilo yarding and folding machine operator; RA Luz French Pharmacy: [facility] Insurance: [facility] [employer] Prescription Benefit: yes Living Will/HPOA: yes, Forrest Owen LNOK: Living Arrangements: patient lives with in single story home with no steps to enter. Patient states she is independent at home. Transportation: DME/HHC: Patient has shower chair, raised toilet, grab bars, walker, wheelchair, electric wheelchair, cpap, nebulizer, oxygen at 4lpm at through [employer]. Patient states she has had HHC in the past. Patient has been to [facility] in the past. Disposition Plan: Patient to discharge home with family support and follow-up plans in place. Patricia VILLANUEVA, RN, CM
[2022-08-25] MEDS: QUEtiapine 25 MG Tablet 50 MG PO ×2 (14:08→20:35)
[2022-08-25] MEDS: busPIRone 5 MG Tablet 10 MG PO ×2 (14:08→20:34)
[2022-08-25] MEDS: guaiFENesin 10 ML UDC (200MG/10ML) PO (20:30)
[2022-08-25] MEDS: Acetaminophen 325 MG Tablet 650 MG PO (20:30)
[2022-08-25] MEDS: Topiramate 50 MG Tablet PO (20:35)
[2022-08-25] MEDS: Montelukast 10 MG Tablet PO (20:35)
[2022-08-25] MEDS: Atorvastatin Calcium 80 MG Tablet PO (20:35)
[2022-08-25] MEDS: 0.9% Saline Lock 10 ML Syringe IV (20:42)
[2022-08-26] VITALS (23 sets, daily range): BP systolic 114–142; BP diastolic 57–89; PULSE 81–108; RESP 14–32; TEMP 36.1–36.7; O2SAT 91–98; BMI 34.4
[2022-08-26] MEDS: Ipratropium/Albuterol Sulfate 3 ML AMPUL.NEB INHALATION ×6 (03:50→23:40)
[2022-08-26] MEDS: 0.9% Saline Lock 10 ML Syringe IV ×5 (04:02→21:59)
[2022-08-26] MEDS: Ondansetron 4 MG/2 ML Vial IV (04:02)
[2022-08-26] MEDS: guaiFENesin 10 ML UDC (200MG/10ML) PO (06:12)
[2022-08-26] MEDS: Methylprednisolone Sod Succ 40 MG/ML VIAL IV ×3 (06:12→21:59)
[2022-08-26] MEDS: Acetaminophen 325 MG Tablet 650 MG PO ×2 (06:12→22:21)
[2022-08-26] MEDS: Liothyronine 5 MCG Tablet 25 MCG PO (06:13)
[2022-08-26] MEDS: Levothyroxine 50 MCG Tablet PO (06:13)
[2022-08-26] MEDS: busPIRone 5 MG Tablet 10 MG PO (06:13)
--- NOTE | 2022-08-26 07:38 | NURSING ---
This RN called into room for concern of pt respiratory status. Upon entering room pt noted to be very anxious, attempting to crawl out of bed, tachypneic on NC with SpO2 in the 80s, and tachycardic. Respiratory at bedside to give breathing treatment. Reassurance given to pt. Placed pt on bipap, respiratory therapist administered breathing treatment. Pt became more relaxed, respirations slowed to 20, SpO2 increased to 95% and HR 100. Boosted pt in bed, bed alarm engaged. Call light in reach, advised pt to call for assistance and not try to climb out of bed. Pt verbalized understanding.
--- NOTE | 2022-08-26 09:34 | PN.HOSP_ITS ---
Reason for Visit Reason for Visit: Diagnoses Obstructive sleep apnea (adult) (pediatric) (08/23/22) Chronic obstructive pulmonary disease with (acute) exacerbation (08/23/22) Acute respiratory failure with hypoxia (08/23/22) Acute kidney failure, unspecified (08/23/22) Subjective Subjective Follow-up for acute on chronic combined respiratory failure, confusion and disorientation Objective Data Objective Data Vital Signs: Vital Signs Temp Pulse Resp BP Pulse Ox O2 Del Method O2 Flow Rate 98.1 F 100 19 H 130/57 H 94 Bi-pap 15 08/26/22 06:32 08/26/22 07:35 08/26/22 08:32 08/26/22 06:32 08/26/22 08:32 08/26/22 08:32 08/26/22 06:32 FiO2 55 08/26/22 08:32 Oxygen Flow Rate (L/min) 15 Oxygen Delivery Method Bi-pap Weight: 158 lb 15.253 oz Body Mass Index (BMI) 34.4 Intake & Output: Intake and Output for Last 24 Hours 08/24/22 08/25/22 08/26/22 23:59 23:59 23:59 Intake Total 840 / 960 520 / 520 220 / 220 Output Total 800 / 1100 1500 / 1500 250 / 250 Balance 40 / -140 -980 / -980 -30 / -30 Lab / Micro Data Result Diagrams: 08/26/22 11:47 08/25/22 05:31 Micro: Microbiology 08/23/22 20:45 Mucosa - Nasopharyngeal Respiratory Panel (PCR) - Final 08/23/22 16:30 Nasal Secretion SARS-CoV-2 & FLU Antigen (Rapid) - Final Radiography Diagnostic Testing: Radiology Impression Echocardiogram 08/23/22 20:58 Interpretation Summary Technically difficult study, The left ventricular ejection fraction is 60 %. Venous Doppler Study 08/24/22 08:53 Interpretation Summary Deep veins of the bilateral lower extremities are patent and compressible segmentally. There is no evidence of bilateral lower extremity deep vein thrombosis. The bilateral great saphenous veins appear patent and compressible segmentally. Rhythm Strip Rhythm Strip: Sinus Tach Rate: 105 Ectopy: None Physical Exam Narrative Patient has protracted history of centrilobular emphysema and chronic combined respiratory failure on 4 L of home oxygen, CPAP. Follows Dr. Page in pulmonary clinic. Seen and examined. Physical exam General: Confused, disoriented to time and place. Mild lethargy. HEENT: Atraumatic, PERRLA, EOMI, Normocephalic Oral: On BiPAP. No Gingival or Mucosal Lesions/ Ulcerations Neck: Supple, No JVD, Negative Carotid Bruits Lungs: Air entry severely diminished in bilateral lung bases. Dyspnea at rest. On BiPAP at night. Cardiovascular: Regular rate, Regular Rhythm, Normal S1, Normal S2, No murmurs Abdomen: Bowel Sounds Present, Soft, Non Tender, Non-Distended : No renal angle tenderness. No suprapubic tenderness. Extremities: No edema, Capillary Refill Less than 3 Seconds Skin: No stump ulcer. Musculoskeletal: Right BKA. No Tenderness to Palpation of Joints or Extremities Neurological: Cranial nerves II-XII grossly intact, DTR 2+/4 and Symmetrical, Neuro grossly intact Psych/Mental Status: Flat affect. Assessment & Plan Assessment/Plan (1) Acute exacerbation of chronic obstructive pulmonary disease (COPD): (2) RAUL (obstructive sleep apnea): (3) DANYEL (acute kidney injury): (4) Acute respiratory failure with hypoxia: PLAN: Plan #Acute on chronic hypoxemic and hypercapnic respiratory failure secondary to COPD exacerbation -Originally 83% on room air and was placed on supplemental oxygen but O2 dipped to 70s and she was transitioned onto nonrebreather and then subsequently to BiPAP -ABG obtained with PO2 of 70.? pH is 7.35 and PCO2 of 52.9. Patient has low BNP and chest x-ray did not show features of fluid overload therefore acute exacerbation of heart failure less likely. -Less likely aechf 2/2 low BNP and cxr w/out signs of overload but on further review difficult to exclude infiltrate -Scheduled DuoNeb -White count was normal.? Procalcitonin ordered within low.? Likely noninfectious. -Placed on BiPAP at the emergency department, continued.? Titrate as needed. -Follows with Dr. Page on an outpatient basis -Most recent FEV1 68% of predicted 08/25: Patient on BiPAP 60% FiO2 16/9, respiratory rate 12. Patient is still short of breath. Continue DuoNeb and IV Solu-Medrol. Patient also not able to participate in VQ scan. On IV cefepime 08/26: Repeat chest x-ray initially reviewed does not show features of pulmonary edema. Patient still requires 55 to 60% FiO2 on BiPAP and 11 L of high flow oxygen. Lasix 20 mg IV empirically given. Respiratory panel negative. Repeat ABG shows pH 7.3 on 11 L of high flow oxygen. VQ scan is ordered alth ough chance of PE less likely venous duplex of lower extremities is negative. Pulmonary consult requested #DANYEL on CKD Stage 3a -On presentation creatinine was 1.97.? Baseline creatinine is around 1.2 -Likely secondary to overdiuresis at home,BUN was 28, BUN over creatinine 14.2 -Likely ATN. -Hold home Lasix.? Hold home NSAIDs. -08/25: Creatinine 1.29, estimated creatinine clearance 48 mill per minute. Her baseline is around 1.13. 08/26: Labs ordered. Mild lethargy, confusion obtunded probably due to Seroquel: Patient was agitated not able to keep BiPAP 2 days ago and required Ativan. On 08/25, patient was put on Seroquel for agitation and anxiety control. Today she is more lethargic and sleepy and disoriented. Patient does not have leukocytosis. ABG shows normal compensated pH but she has hypoxia. Liver chemistry and electrolytes ordered. #Heart failure with preserved ejection fraction -08/25: Echo reported EF 60% with normal diastolic for age. Normal right ventricle. Normal right and left atria. Technically difficult study normal tricuspid valve. No aortic stenosis or insufficiency. Heart failure core measures including intake and output, fluid restriction less than 1500 mL, daily weight monitoring, kidney and electrolytes monitoring 08/26: Does not seem to be in acute exacerbation. #History of RAUL -NIPPV at home, on BiPAP at present -At her visit 06/03/2022 in the pulm office her compliance was 100% with current settings of AutoPap 8 to 10 cm of water with residual AHI of 0.2 events per hour and no apparent leaks #Hypertension -Blood pressure is erratic. -Home blood pressure medication continued -Trend blood pressure and adjust blood pressure medications. #Hypothyroidism -TSH 0.02 on 07/30/2022 with a free T4 of 0.83 and a free T3 of 1.5.? 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 Total time of the visit including total time spent in counseling or coordination of care, (more than 50% of the total time, spent in obtaining medical information from nurses and other ancillary care providers,explaining to the patient about labs, imaging, diagnosis and management of active complex medical conditions), pulmonary consult, review of labs and imaging is 50 minutes. Charges/Coding Visit Charges Inpatient E&M: 26734 Subs Hosp L3
--- NOTE | 2022-08-26 10:05 | RAD_ITS ---
STUDY: X-RAY CHEST REASON FOR EXAM: Female, 67 years old. Sob, bipap dependant TECHNIQUE: Single AP portable view of the chest. COMPARISON: Comparison is made with prior study dated August 25, 2022. FINDINGS: EKG electrodes are seen. Stable mild increased markings at the lung bases suggestive of atelectasis. Blunting of both costophrenic angles. Normal size heart. Normal mediastinum and gage. Normal visualized pulmonary arteries. There is atherosclerotic tortuosity of the aortic arch and descending thoracic aorta. Prior fusion of the lower thoracic and upper lumbar vertebrae. Normal visualized ribs, clavicles, and shoulders. There is no demonstrated abnormality of the visualized soft tissue structures of the upper abdomen. RAD/Chest 1 View (Portable) IMPRESSION: Mild increased markings at the lung bases suggestive of atelectasis. Blunting of both costophrenic angles. Electronically Signed: Luis Antonio Mota MD at 12:25 EDT ,
[2022-08-26 11:50] LABS: Allen Test Positive; Base Excess 1 mmol/L (-2 to +2); Bicarbonate 26.1 mmol/L (22-26); Blood Gas Specimen Type ART; O2 Delivery Device Cannula; PO2 67 mmHG (75-100); SITE L Radial; SO2 93 % (95-99); Total Carbon Dioxide 27 mmol/L; pCO2 43.1 mmHg (35-45); pH 7.39 (7.35-7.45)
--- NOTE | 2022-08-26 11:58 | NM_ITS ---
CLINICAL: 67-year-old female with history of hypoxemia and shortness of breath. 99m Tc MAA PERFUSION LUNG SCINTIGRAPHY COMPARISON: Plain film chest radiograph report 08/26/2022 FINDINGS: The ventilation study was not performed. Following the intravenous administration of 5.8 mCi of 99m Tc MAA the pulmonary perfusion study reveals mild non-uniform perfusion in the right and left lung prasad without moderate subsegmental or large segmental wedge shaped, peripheral perfusion defects identified. NM/Quant Lung Perfusion Scan IMPRESSION: 1. LOW PROBABILITY FOR PULMONARY EMBOLUS (R 12%) 99m Tc MAA pulmonary perfusion imaging examination, according to PISA-PED (Prospective Investigative Study of Pulmonary Embolism Diagnosis) interpretive criteria with regard given to the presence of minimally heterogeneous perfusion without significant peripheral perfusion abnormalities. (Teodoro et al, Am J Respir Crit Care Med 154: 1387, 1996). Electronically Signed: Mitch Todd, at 13:48 EDT ,
[2022-08-26 12:02] LABS: Absolute Lymphocyte Count 0.98 X10^3/uL (0.83-4.51); Absolute Neutrophil Count 8.7 X10^3/uL (2.0-7.7); Hematocrit 32.8 % (37-47); Hemoglobin 10.1 g/dL (12.0-15.0); Lymphocyte # 0.98 X10^3/ul (0.83-4.51); Lymphocyte % 9.6 % (19-41); Mean Corp Hgb Conc 30.8 g/dL (32-36); Mean Corpuscular Hgb 26.7 pg (27.0-32.0); Mean Corpuscular Volume 86.8 fL (81-99); Mean Platelet Vol. 9.6 fl (6.2-12.0); Monocyte# 0.58 X10^3/uL; Monocyte% 5.7 % (0-10); NRBC Flagged by Analyzer 0 % (0-5); Neutrophil # 8.66 X10^3/uL (2.7-7.7); Neutrophil % 84.4 % (47-70); Platelet Count 314 K/mm3 (150-450); RBC Distribution Width CV 15.2 % (11.6-14.6); RBC Distribution Width SD 48.4 fl (35.1-43.9); Red Blood Count 3.78 M/mm3 (4.2-5.4); White Blood Count 10.3 K/mm3 (4.4-11.0)
[2022-08-26 12:23] LABS: AST(SGOT) 17 U/L (15-37); Alanine Aminotransfer ALT/SGPT 23 U/L (13-56); Albumin, Serum 3.1 g/dL (3.2-5.0); Alkaline Phosphatase 71 U/L (45-117); Anion Gap 6 (5-15); BUN 38 mg/dL (7-18); BUN/Creat Ratio 36.9 RATIO (10-20); Calcium,Total 9.1 mg/dL (8.5-10.1); Chloride 112 mmol/L (98-107); Creatinine, Serum 1.03 mg/dL (0.55-1.02); EST Glomerular Filtration Rate 57 mL/min (>60); Est Glom Filt Rate - Afr Amer 69 mL/min (>60); Estimated Creatinine Clearance 60.33 ml/min; Globulin 4.2 g/dL (2.2-4.2); Glucose 121 mg/dL (74-106); Magnesium 2.7 mg/dL (1.6-2.6); Phosphorus 2.5 mg/dL (2.5-4.9); Potassium 4.1 mmol/L (3.5-5.1); Protein, Total 7.3 g/dL (6.4-8.2); Sodium Level 146 mmol/L (136-145)
[2022-08-26] MEDS: Furosemide 20 MG/2 ML VIAL IV (13:41)
[2022-08-26] MEDS: Metoprolol Tartrate 25 MG Tablet 12.5 MG PO ×2 (13:42→22:21)
[2022-08-26] MEDS: Clopidogrel Bisulfate 75 MG Tablet PO (13:42)
[2022-08-26] MEDS: Enoxaparin 40 MG/0.4 ML Syringe SC (13:43)
[2022-08-26] MEDS: guaiFENesin/D-Methorphan TAB.SR.12H 2 TABLET PO ×2 (13:44→22:21)
--- NOTE | 2022-08-26 15:15 | NURSING ---
This RN into room to check on pt. Observed pt attempting to crawl out of bed, very anxious, pulling off oxygen NC. Reassurance provided. Pt reoriented. Placed back on bipap. Pt more relaxed, HR and respirations decreased from being tachy. Spo2 95%. Repositioned in bed. Bed alarm on, call light in reach. at bedside.
--- NOTE | 2022-08-26 16:28 | NURSING ---
Am medications late d/t mentation and pt going off floor for imaging.
[2022-08-26] MEDS: Montelukast 10 MG Tablet PO (22:20)
[2022-08-26] MEDS: Atorvastatin Calcium 80 MG Tablet PO (22:21)
[2022-08-26] MEDS: Topiramate 50 MG Tablet PO (22:21)
[2022-08-26] MEDS: DULoxetine Hcl 60 MG Capsule PO (22:21)
[2022-08-26] MEDS: Triamcinolone Acetonide 0.1% Cream 15 gm 1 APPLIC TOPICAL (22:28)
[2022-08-27] VITALS (19 sets, daily range): BP systolic 99–145; BP diastolic 57–91; PULSE 70–110; RESP 14–32; TEMP 35.7–37.3; O2SAT 93–98; BMI 34.8
[2022-08-27] MEDS: Ipratropium/Albuterol Sulfate 3 ML AMPUL.NEB INHALATION ×4 (03:15→19:23)
[2022-08-27] MEDS: 0.9% Saline Lock 10 ML Syringe IV ×4 (03:24→14:19)
[2022-08-27] MEDS: LORazepam 2 MG/ML Syringe 0.5 MG IV (03:24)
[2022-08-27] MEDS: Methylprednisolone Sod Succ 40 MG/ML VIAL IV ×3 (06:07→21:49)
--- NOTE | 2022-08-27 06:21 | CON.PCM.CC_ITS ---
Assessment & Plan Assessment/Plan (1) Acute exacerbation of chronic obstructive pulmonary disease (COPD): PLAN: Plan RECOMMENDATIONS: 1. Wean supplemental oxygen to maintain saturations at or above 90%. 2. Continue empiric antimicrobials along with scheduled bronchodilators and braden roids. 3. Discontinue sedating medications. 4. Continue PAP therapy, as needed, throughout the day and nightly. 5. If no improvement hypoxemia, consider limited echo to evaluate for cardiac level shunt. IMPRESSIONS: 1. Acute hypoxemic respiratory failure Unclear etiology. The patient does have known underlying obstructive lung disease and continues to smoke cigarettes daily. Therefore, an exacerbation of her underlying COPD seems most likely. In light of her presenting radiographic findings, underlying pneumonia is a possibility. Her echocardiogram did not reveal any significant abnormalities to suggest a cardiac etiology. Lower ex tremity Doppler study was negative for DVT. CTA chest showed no evidence for pulmonary embolism. The patient has emphysematous changes and bullae present along with faint groundglass opacities in the right upper lobe. The patient remains on antimicrobials along with bronchodilators and steroids. Recommend weaning supplemental oxygen to maintain saturations at or above 90%. She is not currently retaining CO2 based upon her ABG results. In general, however, the patient's current hypoxemia may be secondary to progressive chronic lung disease as well. If she does not begin to improve, may need to consider a limited echocardiogram with bubble contrast to evaluate for cardiac level shunt. 2. Encephalopathy Concern that this may be medication induced. I would recommend that all sedating medications be withheld for now. The patient's arterial blood gas did not demonstrate evidence of CO2 retention. Although TSH was initially found to be low, free T4 level was within normal limits. 3. Chronic tobacco dependency/history of obstructive sleep apnea/hypertension/hypothyroidism Complicates care, management, recovery and prognosis. Continue PAP therapy with naps and nightly. Continue home Synthroid regimen. This note was generated with [employer] dictation software. It may contain incorrect words, spelling, and punctuation that were not noted in checking the note before signing. HPI Consult Data Date of Consult: 08/27/22 HPI Narrative Reason for Consultation: Respiratory failure HPI Narrative: The patient is a 67-year-old female, with a history as outlined below, who presented to the emergency department on August 23 via EMS with progressive shortness of breath. The patient is currently followed by Dr. Page in the pulmonary medicine clinic due to a history of COPD, bronchiectasis, tobacco dependency and obstructive sleep apnea. She is maintained on a triple therapy inhaler regimen at her baseline. According to her last office visit in May 2022, the patient was maintaining appropriate oxygen saturations on room air. She does continue to smoke 0.5 packs of cigarettes per day. On presentation to the emergency department, the patient was noted to be afebrile but was mildly tachycardic and tachypneic. The patient was initially requiring 5 L/min of supplemental oxygen. Initial laboratory evaluation revealed no evidence of a leukocytosis. Chemistry profile was notable for a potassium of 3.3 and creatinine of 1.97. Troponin and BNP were unremarkable. Initial chest x-ray only demonstrated bibasilar atelectasis. Lower extremity Doppler study from August 24 demonstrated no evidence for DVT. CT chest without contrast dated August 24 demonstrated bilateral emphysematous changes with hyperinflated lung prasad and atelectasis of the right middle lobe. Surface echocardiogram completed on August 25 demonstrated normal LV size and function with an ejection fraction of 60%. This morning, the patient was noted to be maintaining appropriate oxygen saturations on 10 L/min. However, she did seem quite confused. The patient has been receiving BuSpar, Seroquel and did get a one-time dose of IV Ativan overnight. Her last ABG from yesterday demonstrated a pH of 7.39 with a PCO2 of 43 and PO2 of 67. [facility] Medical History Anxiety Asthma Chronic back pain COPD (chronic obstructive pulmonary disease) Depression Diverticulitis Fibromyalgia GERD (gastroesophageal reflux disease) Heart disease History of bronchitis History of heart attack History of pneumonia HTN (hypertension) Hypothyroidism Incisional hernia Nausea and vomiting Osteoarthritis Osteoporosis Sleep apnea Spinal stenosis spinal stimulator Thyroid disorder TIA (transient ischemic attack) Home Medications atorvastatin 80 mg tablet 80 mg PO QHS cholesterol 06/01/13 [History Last Taken 05/25/14 80 MG] clopidogrel 75 mg tablet 75 mg PO DAILY anti platelet 06/01/13 [History Last Taken 12/11/18] metoprolol tartrate 25 mg tablet 12.5 mg PO BID blood pressure 06/01/13 [History Last Taken 06/26/20 05:00] lorazepam 1 mg tablet (Ativan) 1 mg PO BID-TID PRN Anxiety 11/17/18 [History Last Taken Unknown] hydroxyzine HCl 50 mg tablet 50 mg PO QHS 12/01/18 [History Last Taken Unknown] duloxetine 60 mg capsule,delayed release 60 mg PO BID 06/19/20 [History Last Taken Unknown] albuterol sulfate 90 mcg/actuation aerosol inhaler 1 - 2 puff inhalation Q6H PRN PRN COPD #2 device 06/03/22 [Rx Last Taken Unknown] buspirone 7.5 mg tablet 7.5 mg PO BID 06/03/22 [History Last Taken Unknown] montelukast 10 mg tablet 10 mg PO QPM #90 tabs 06/03/22 [Rx Last Taken Unknown] diclofenac sodium 75 mg tablet,delayed release 75 mg PO BID 08/23/22 [History Last Taken Unknown] furosemide 40 mg tablet 60 mg PO DAILY 08/23/22 [History Last Taken Unknown] hydroxychloroquine 200 mg tablet 200 mg PO BID 08/23/22 [History Last Taken Unknown] ipratropium 0.5 mg-albuterol 3 mg (2.5 mg base)/3 mL nebulization soln 3 ml inhalation Q4H PRN SOB 08/23/22 [History Last Taken Unknown] levothyroxine 50 mcg tablet 50 mcg PO DAILY 08/23/22 [History Last Taken Unknown] liothyronine 5 mcg tablet 25 mcg PO DAILY 08/23/22 [History Last Taken Unknown] pregabalin 50 mg capsule 50 mg PO DAILY 08/23/22 [History Last Taken Unknown] tiotropium bromide 2.5 mcg/actuation mist for inhalation (Spiriva Respimat) 2 inh inhalation DAILY 08/23/22 [History Last Taken Unknown] topiramate 25 mg tablet 50 mg PO QHS 08/23/22 [History Last Taken Unknown] triamcinolone acetonide 0.1 % topical cream 1 applic topical BID 08/23/22 [History Last Taken Unknown] Allergy/AdvReac Type Severity Reaction Status Date / Time cefaclor [From [facility]] Allergy Itching Verified 08/23/22 16:28 clarithromycin Allergy Hives Verified 08/23/22 16:28 doxycycline Allergy Itching Verified 08/23/22 16:28 Penicillins Allergy Hives Verified 08/23/22 16:28 Sulfa (Sulfonamide Allergy Hives Verified 08/23/22 16:28 Antibiotics) biotin AdvReac Unknown Unknown Verified 08/23/22 16:28 zolpidem [From Ambien] AdvReac Unknown mental Verified 08/23/22 16:28 issues Family History Father Asthma Heart disease Grandmother Breast cancer Diabetes Mother Heart disease COPD (chronic obstructive pulmonary disease) Other Cancer Surgical History H/O heart artery stent History of esophagogastroduodenoscopy (EGD) (~07/2018) History of incisional hernia repair (~12/20/18) History of incisional hernia repair Hx of cholecystectomy Previous back surgery S/P carpal tunnel release S/P correction of deviated nasal septum S/P hysterectomy S/P knee surgery Status post amputation of right foot Status post thyroidectomy Social History Smoking Status: Former smoker second hand exposure: Yes alcohol intake: never substance use type: does not use caffeine: Yes what type of physical activity do you participate in: none frequency: does not exercise ROS Review of Systems ROS Unobtainable: due to mental status Physical Exam Const alert and no apparent distress Orientation / Consciousness: confused and disoriented Nutritional Appearance: obese HEENT normocephalic and head/scalp atraumatic Eyes PERRL and EOMs intact bilaterally Neck supple General: trachea midline Chest inspection of chest normal Resp Effort and Inspection: tachypneic Auscultation: diminished lung sounds Cardio regular rate and regular rhythm GI normal to inspection, nondistended, normoactive bowel sounds Extremity no clubbing, cyanosis or edema Skin no rashes or lesions noted Neuro moves all extremities and no focal motor deficits Psych Mood & Affect: flat affect Lab / Micro Data Result Diagrams: 08/26/22 11:47 08/26/22 11:47 Labs: Laboratory Results - last 24 hr 08/26/22 11:47: WBC 10.3, RBC 3.78 L, Hgb 10.1 L, Hct 32.8 L, MCV 86.8, MCH 26.7 L, MCHC 30.8 L, RDW Std Deviation 48.4 H, RDW Coeff of [place] 15.2 H, Plt Count 314, MPV 9.6, Immature Gran % (Auto) 0.300, Neut % (Auto) 84.4 H, Lymph % (Auto) 9.6 L, [place] % (Auto) 5.7, Eos % (Auto) 0.0, Baso % (Auto) 0.0, Absolute Neuts (auto) 8.7 H, Absolute Lymphs (auto) 0.98, Nucleated RBC % 0 08/26/22 11:47: Sodium 146 H, Potassium 4.1, Chloride 112 H, Carbon Dioxide 28.0, Anion Gap 6, BUN 38 H, Creatinine 1.03 H, Estim Creat Clear Calc 60.33, Est GFR (MDRD) Af Amer 69, Est GFR (MDRD) Non-Af 57 L, BUN/Creatinine Ratio 36.9 H, Glucose 121 H, Calcium 9.1, Phosphorus 2.5, Magnesium 2.7 H, Total Bilirubin 0.30, Direct Bilirubin 0.10, AST 17, ALT 23, Alkaline Phosphatase 71, Total Protein 7.3, Albumin 3.1 L, Globulin 4.2 ABG Data ABG results: ABG 08/26/22 11:45 Specimen Type ART Sample Site L Radial pH 7.39 Bicarbonate Actual 26.1 H Total CO2 27 Base Excess 1 O2 Saturation 93 L ABG pCO2 43.1 ABG pO2 67 L Luke Test Positive O2 Delivery Device Cannula Liter Flow 11.0 Rhythm Strip Rhythm Strip: Sinus Tach Rate: 105 Ectopy: None Radiology Impression Chest X-Ray 08/26/22 10:05 IMPRESSION: Mild increased markings at the lung bases suggestive of atelectasis. Blunting of both costophrenic angles. Electronically Signed: Luis Antonio Mota MD at 12:25 EDT , Lung Scan-VQ NC 08/26/22 11:58 IMPRESSION: 1. LOW PROBABILITY FOR PULMONARY EMBOLUS (R 12%) 99m Tc MAA pulmonary perfusion imaging examination, according to PISA-PED (Prospective Investigative Study of Pulmonary Embolism Diagnosis) interpretive criteria with regard given to the presence of minimally heterogeneous perfusion without significant peripheral perfusion abnormalities. (Miniati et al, Am J Respir Crit Care Med 154: 1387, 1996). Electronically Signed: Mitch Todd, at 13:48 EDT , Charges/Coding Visit Charges Inpatient E&M: 61510 Init Hosp L3
[2022-08-27] MEDS: Liothyronine 5 MCG Tablet 25 MCG PO (06:22)
[2022-08-27] MEDS: Levothyroxine 50 MCG Tablet PO (06:22)
--- NOTE | 2022-08-27 06:27 | CT_ITS ---
STUDY: CTA CHEST REASON FOR EXAM: Female, 67 years old. PE rule out. Acute hypoxemic respiratory failure. RADIATION DOSAGE (If Supplied By Facility): CTDIvol = ( 17.45 ) mGy, DLP = ( 713.32 ) mGycm TECHNIQUE: The examination was performed with the intravenous administration of IV 100mL Isovue-370. Post-processing of the angiographic images was performed, with multiplanar reformation and 3D reconstruction. Individualized dose optimization techniques were used for this CT. COMPARISON: Comparison is made with prior study dated August 24, 2022. FINDINGS: Normal enhancement of the main pulmonary artery and right and left pulmonary arteries. Normal enhancement of the bilateral peripheral pulmonary arteries. There is no demonstrated pulmonary embolism. Normal thoracic aorta and visualized great vessels. There is no demonstrated aortic dissection. There are calcifications of the coronary arteries. There are visualized mediastinal lymph nodes, which are within normal size limits, and with normal morphology. Normal hilar regions. Normal visualized trachea and bronchi. The lungs are well expanded. Emphysematous changes. Focal areas of groundglass appearance in the right upper lobe with evidence of a emphysematous changes. This is new as compared to prior study. Small bulla are seen in the posterior aspect of the right upper lobe adjacent to the right minor fissure. Increased markings are also seen at the right lung base. Prominent bulla in the left lower lobe. Normal pleura. Normal chest wall structures. Complete collapse of the lower dorsal vertebrae. Prior screw and rinku fixation of the lower thoracic and upper lumbar spine. Markedly deformed L1 vertebrae. Normal visualized upper abdomen. CT/CTA Chest W/WO Contrast IMPRESSION: No evidence of pulmonary embolism. Emphysematous changes. Focal groundglass appearance in the right upper lobe with increased markings in the right lower lobe. Electronically Signed: Luis Antonio Mota MD at 8:33 EDT ,
--- NOTE | 2022-08-27 08:02 | PCM.PN.HOSP ---
Reason for Visit Reason for Visit: Diagnoses Obstructive sleep apnea (adult) (pediatric) (08/23/22) Chronic obstructive pulmonary disease with (acute) exacerbation (08/23/22) Acute respiratory failure with hypoxia (08/23/22) Acute kidney failure, unspecified (08/23/22) Subjective Subjective Follow-up for severe hypoxia, acute hypoxic respiratory failure and encephalopathy Objective Data Objective Data Vital Signs: Vital Signs Temp Pulse Resp BP Pulse Ox O2 Del Method O2 Flow Rate 98.1 F 92 22 H 135/70 H 94 High Flow 10 08/27/22 06:17 08/27/22 06:39 08/27/22 06:39 08/27/22 06:17 08/27/22 07:12 08/27/22 07:12 08/27/22 07:12 FiO2 65 08/27/22 06:39 Oxygen Flow Rate (L/min) 10 Oxygen Delivery Method High Flow Weight: 160 lb 14.999 oz Body Mass Index (BMI) 34.8 Intake & Output: Intake and Output for Last 24 Hours 08/25/22 08/26/22 08/27/22 23:59 23:59 23:59 Intake Total 520 / 520 660 / 900 460 / 460 Output Total 1500 / 1500 900 / 900 200 / 200 Balance -980 / -980 -240 / 0 260 / 260 Lab / Micro Data Result Diagrams: 08/26/22 11:47 08/26/22 11:47 Labs: Laboratory Results - last 24 hr 08/26/22 11:47: WBC 10.3, RBC 3.78 L, Hgb 10.1 L, Hct 32.8 L, MCV 86.8, MCH 26.7 L, MCHC 30.8 L, RDW Std Deviation 48.4 H, RDW Coeff of Genaro 15.2 H, Plt Count 314, MPV 9.6, Immature Gran % (Auto) 0.300, Neut % (Auto) 84.4 H, Lymph % (Auto) 9.6 L, [place] % (Auto) 5.7, Eos % (Auto) 0.0, Baso % (Auto) 0.0, Absolute Neuts (auto) 8.7 H, Absolute Lymphs (auto) 0.98, Nucleated RBC % 0 08/26/22 11:47: Sodium 146 H, Potassium 4.1, Chloride 112 H, Carbon Dioxide 28.0, Anion Gap 6, BUN 38 H, Creatinine 1.03 H, Estim Creat Clear Calc 60.33, Est GFR (MDRD) Af Amer 69, Est GFR (MDRD) Non-Af 57 L, BUN/Creatinine Ratio 36.9 H, Glucose 121 H, Calcium 9.1, Phosphorus 2.5, Magnesium 2.7 H, Total Bilirubin 0.30, Direct Bilirubin 0.10, AST 17, ALT 23, Alkaline Phosphatase 71, Total Protein 7.3, Albumin 3.1 L, Globulin 4.2 Micro: Microbiology 08/23/22 20:45 Mucosa - Nasopharyngeal Respiratory Panel (PCR) - Final 08/23/22 16:30 Nasal Secretion SARS-CoV-2 & FLU Antigen (Rapid) - Final ABG Data ABG results: ABG 08/26/22 11:45 Specimen Type ART Sample Site L Radial pH 7.39 Bicarbonate Actual 26.1 H Total CO2 27 Base Excess 1 O2 Saturation 93 L ABG pCO2 43.1 ABG pO2 67 L Luke Test Positive O2 Delivery Device Cannula Liter Flow 11.0 Radiography Diagnostic Testing: Radiology Impression Chest X-Ray 08/26/22 10:05 IMPRESSION: Mild increased markings at the lung bases suggestive of atelectasis. Blunting of both costophrenic angles. Electronically Signed: Luis Antonio Mota MD at 12:25 EDT , Lung Scan-VQ NM 08/26/22 11:58 IMPRESSION: 1. LOW PROBABILITY FOR PULMONARY EMBOLUS (R 12%) 99m Tc MAA pulmonary perfusion imaging examination, according to PISA-PED (Prospective Investigative Study of Pulmonary Embolism Diagnosis) interpretive criteria with regard given to the presence of minimally heterogeneous perfusion without significant peripheral perfusion abnormalities. (Myles, Am J Respir Crit Care Med 154: 1387, 1996). Electronically Signed: Mitch Todd, at 13:48 EDT , Rhythm Strip Rhythm Strip: Sinus Tach Rate: 105 Ectopy: None Physical Exam Narrative She is confused and disoriented. Has a staring look. Cannot answer simple orientation questions. GOT 0.5 mg IV Ativan manager progressive care am. Returned from CTA Chest. Seen and examined. Physical exam General: Confused, disoriented to time and place. Babbling incomprehensible sounds and words. BMI 34.8 kg/m? HEENT: Atraumatic, PERRLA, EOMI, Normocephalic Oral: On high flow oxygen. No Gingival or Mucosal Lesions/ Ulcerations Neck: Supple, No JVD, Negative Carotid Bruits Lungs: Air entry severely diminished in bilateral lung bases. Dyspnea at rest. On BiPAP at night. Cardiovascular: Regular rate, Regular Rhythm, Normal S1, Normal S2, No murmurs Abdomen: Bowel Sounds Present, Soft, Non Tender, Non-Distended : No renal angle tenderness. No suprapubic tenderness. Extremities: No edema, Capillary Refill Less than 3 Seconds Skin: No stump ulcer. Musculoskeletal: Right BKA. No Tenderness to Palpation of Joints or Extremities Neurological: Cranial nerves II-XII grossly intact, nonfocal exam. Overall confused and encephalopathic Psych/Mental Status: Flat affect. Assessment & Plan Assessment/Plan (1) Acute exacerbation of chronic obstructive pulmonary disease (COPD): (2) RAUL (obstructive sleep apnea): (3) DANYEL (acute kidney injury): (4) Acute respiratory failure with hypoxia: PLAN: Plan #Acute on chronic hypoxemic and hypercapnic respiratory failure secondary to COPD exacerbation. In ED, patient was 83% on room air and was placed on supplemental oxygen but O2 dipped to 70s and she was transitioned onto nonrebreather and then subsequently to BiPAP -ABG obtained with PO2 of 70.? pH is 7.35 and PCO2 of 52.9. Patient has low BNP and chest x-ray did not show features of fluid overload therefore acute exacerbation of heart failure less likely. -Less likely AECHF 2/2 low BNP and cxr w/out signs of overload but on further review difficult to exclude infiltrate -Scheduled DuoNeb -White count was normal.? Procalcitonin ordered within low.? Likely noninfectious. -Placed on BiPAP at the emergency department, continued.? Titrate as needed. -Follows with Dr. Page on an outpatient basis -Most recent FEV1 68% of predicted 08/25: Patient on BiPAP 60% FiO2 16/9, respiratory rate 12. Patient is still short of breath. Continue DuoNeb and IV Solu-Medrol. Patient also not able to participate in VQ scan. On IV cefepime 08/26: Repeat chest x-ray initially reviewed does not show features of pulmonary edema. Patient still requires 55 to 60% FiO2 on BiPAP and 11 L of high flow oxygen. Lasix 20 mg IV empirically given. Respiratory panel negative. Repeat ABG shows pH 7.3 on 11 L of high flow oxygen. VQ scan is ordered although chance of PE less likely venous duplex of lower extremities is negative. Pulmonary consult requested 08/27: Pulmonary consult reviewed and appreciated. Patient had CT angiogram which did not show PE but emphysematous changes and focal groundglass opacity in right upper lobe increased markings in right lower lobe. Patient is more confused as mentioned below Acute encephalopathy most likely due to benzodiazepine/polypharmacy: Initially patient was given Ativan about 2 days ago that was discontinued and put on Seroquel to control the agitation with holding parameters. Patient also on duloxetine and buspirone. ABG done yesterday did not show increase CO2 retention. All sedative, tranquilizers are not discontinued including Seroquel, Ativan, buspirone. #DANYEL on CKD Stage 3a -On presentation creatinine was 1.97.? Baseline creatinine is around 1.2 -Likely secondary to overdiuresis at home,BUN was 28, BUN over creatinine 14.2 -Likely ATN. -Hold home Lasix.? Hold home NSAIDs. -08/25: Creatinine 1.29, estimated creatinine clearance 48 mill per minute. Her baseline is around 1.13. 08/27: Sodium and chloride elevated. Creatinine 1.03. BUN 38. Mild compensated normal anion gap metabolic acidosis. Creatinine baseline. DANYEL resolved. Mild lethargy, confusion obtunded probably due to Seroquel: Patient was agitated not able to keep BiPAP 2 days ago and required Ativan. On 08/25, patient was put on Seroquel for agitation and anxiety control. Today she is more lethargic and sleepy and disoriented. Patient does not have leukocytosis. ABG shows normal compensated pH but she has hypoxia. Liver chemistry and electrolytes ordered. #Heart failure with preserved ejection fraction -08/25: Echo reported EF 60% with normal diastolic for age. Normal right ventricle. Normal right and left atria. Technically difficult study normal tricuspid valve. No aortic stenosis or insufficiency. Heart failure core measures including intake and output, fluid restriction less than 1500 mL, daily weight monitoring, kidney and electrolytes monitoring 08/26: Does not seem to be in acute exacerbation. #History of RAUL -NIPPV at home, on BiPAP at present -At her visit 06/03/2022 in the pulm office her compliance was 100% with current settings of AutoPap 8 to 10 cm of water with residual AHI of 0.2 events per hour and no apparent leaks #Hypertension -Blood pressure is erratic. -Home blood pressure medication continued -Trend blood pressure and adjust blood pressure medications. #Hypothyroidism -TSH 0.02 on 07/30/2022 with a free T4 of 0.83 and a free T3 of 1.5. Repeat free T4 0.95.? Free T3 2.7. TSH 0.06. Patient had decreased all TSH free T4 and free T3. Which may be due to central hypothyroidism or euthyroid sick syndrome. Levothyroxine dose increased to 75 mcg daily. Patient also on levothyroxine 25 mcg daily. Repeat thyroid function test after 3 months with PCP. Will need further follow-up with leather cleaner as an outpatient for further work-up if the patient has central hypothyroidism #Tobacco use -Advise cessation especially given medical comorbidities DVT prophylaxis Subcutaneous Lovenox ordered. Charges/Coding Visit Charges Inpatient E&M: 56083 Subs Hosp L2
[2022-08-27 09:01] LABS: BNP,B-Type NATRIURETIC PEPTIDE 157.9 pg/mL (0-100)
[2022-08-27 09:15] LABS: Procalcitonin < 0.04 ng/mL (0.00-0.09)
[2022-08-27] MEDS: Pregabalin 50 MG Capsule PO (10:39)
[2022-08-27] MEDS: DULoxetine Hcl 60 MG Capsule PO (10:39)
[2022-08-27] MEDS: Metoprolol Tartrate 25 MG Tablet 12.5 MG PO ×2 (10:39→21:48)
[2022-08-27] MEDS: Triamcinolone Acetonide 0.1% Cream 15 gm 1 APPLIC TOPICAL ×2 (10:39→22:03)
[2022-08-27] MEDS: Enoxaparin 40 MG/0.4 ML Syringe SC (10:40)
[2022-08-27] MEDS: guaiFENesin/D-Methorphan TAB.SR.12H 2 TABLET PO ×2 (10:40→21:45)
[2022-08-27] MEDS: Clopidogrel Bisulfate 75 MG Tablet PO (10:41)
[2022-08-27] MEDS: Furosemide 40 MG/4 ML Vial IV (12:41)
[2022-08-27] MEDS: Atorvastatin Calcium 80 MG Tablet PO (21:47)
[2022-08-27] MEDS: Montelukast 10 MG Tablet PO (21:49)
[2022-08-27] MEDS: Topiramate 50 MG Tablet PO (21:50)
--- NOTE | 2022-08-27 22:46 | NURSING ---
Pt was coughing after drinking water tonight. Lung sounds are unchanged diminished throughout. Pulse ox maintained at 92% on 8l hf. Discussed with Dr mendoza having speech evaluate her. Order received.
[2022-08-28] VITALS (36 sets, daily range): BP systolic 125–164; BP diastolic 53–97; PULSE 79–108; RESP 14–34; TEMP 36.2–37.7; O2SAT 87–100; BMI 33.3
[2022-08-28] MEDS: Ipratropium/Albuterol Sulfate 3 ML AMPUL.NEB INHALATION ×4 (00:52→18:51)
--- NOTE | 2022-08-28 00:52 | NURSING ---
Pt was lying prone in bed pulled off bipap mask while staff was in room. Wheezing noted. Placed on HF at 8l. Pt o2 sat would not rise past 86%. Increased to 15 respiratory notified to evaluate. pulse ox climbed to 90%. Pt is visibly short of breath. Treatment started per RT at this time
[2022-08-28] MEDS: 0.9% Saline Lock 10 ML Syringe IV ×4 (01:06→23:00)
--- NOTE | 2022-08-28 01:07 | NURSING ---
Dr Lisa called and given update on respiratory status. Pt is currently 93% on 15 liters hf. Physician called back after discussion with respiratory therapy states will place her on precedex and transfer to icu.
--- NOTE | 2022-08-28 01:08 | PCM.HOSP.N ---
Hospitalist Note Patient with notable restlessness, taking her oxygen off, remains confused with significant desaturations associated and now increased wheezing. Recent aerosols administered, on cefepime, on steroids, 08/27/22 lasix pulse dose noted. Will transfer patient to the ICU and initiate low dose precedex and attempt reinstitution of BIPAP. Dr. Raza following already.
--- NOTE | 2022-08-28 01:37 | NURSING ---
Report called to ICU nurse Ann-Marie for transfer.
--- NOTE | 2022-08-28 02:01 | NURSING ---
Pt arrived from PCU @0150, respiratory at bedside placed Airvo 60L 60%. Vitals stable.
--- NOTE | 2022-08-28 02:27 | NURSING ---
Attempted to call with update regarding transfer to ICU no answer left message to return call.
[2022-08-28 05:07] LABS: Absolute Lymphocyte Count 1.49 X10^3/uL (0.83-4.51); Absolute Neutrophil Count 8.4 X10^3/uL (2.0-7.7); Basophil# 0.02 X10^3/uL; Basophil% 0.2 % (0-1); Hematocrit 35.2 % (37-47); Hemoglobin 10.7 g/dL (12.0-15.0); Lymphocyte # 1.49 X10^3/ul (0.83-4.51); Lymphocyte % 13.7 % (19-41); Mean Corp Hgb Conc 30.4 g/dL (32-36); Mean Corpuscular Hgb 25.8 pg (27.0-32.0); Mean Platelet Vol. 9.6 fl (6.2-12.0); Monocyte# 0.85 X10^3/uL; Monocyte% 7.8 % (0-10); NRBC Flagged by Analyzer 0 % (0-5); Neutrophil # 8.41 X10^3/uL (2.7-7.7); Neutrophil % 77.7 % (47-70); Platelet Count 332 K/mm3 (150-450); RBC Distribution Width CV 14.6 % (11.6-14.6); RBC Distribution Width SD 44.9 fl (35.1-43.9); Red Blood Count 4.14 M/mm3 (4.2-5.4); White Blood Count 10.8 K/mm3 (4.4-11.0)
--- NOTE | 2022-08-28 05:41 | NURSING ---
Attempted to contact patients regarding transfer again no answer. Left message again for him to return call.
[2022-08-28 05:45] LABS: Anion Gap 6 (5-15); BUN 40 mg/dL (7-18); BUN/Creat Ratio 42.7 RATIO (10-20); Calcium,Total 9.6 mg/dL (8.5-10.1); Chloride 108 mmol/L (98-107); Creatinine, Serum 0.94 mg/dL (0.55-1.02); EST Glomerular Filtration Rate 63 mL/min (>60); Est Glom Filt Rate - Afr Amer 77 mL/min (>60); Estimated Creatinine Clearance 64.27 ml/min; Glucose 154 mg/dL (74-106); Potassium 3.9 mmol/L (3.5-5.1); Sodium Level 144 mmol/L (136-145)
[2022-08-28] MEDS: Methylprednisolone Sod Succ 40 MG/ML VIAL IV ×3 (05:45→20:38)
--- NOTE | 2022-08-28 07:00 | ECHOL_ITS ---
Reason For Study: Dyspnea/SOB-Bubble study only Procedure This was a limited 2D transthoracic echocardiogram. The study was technically difficult. Exam performed portable in ICU/CCU. Left Ventricle Normal LV size. The left ventricular ejection fraction is 60 %. Right Ventricle Normal right ventricle. Atria Normal left atrium. The right atrium is not well visualized. Bubble contrast study is negative for PFO/ASD. Medication Performed a rapid injection of agitated mix of 9 cc saline and 1cc air to assess for atrial septal defect. ECHO/Echo, Limited Study Interpretation Summary The left ventricular ejection fraction is 60 %. Bubble contrast study is negative for PFO/ASD. Ordering Physician: Caesar Raza Referring Physician: Chrystal Michel Performed By: Chad Noonan RCS
[2022-08-28] MEDS: Albuterol 2.5 MG/3 ML VIAL.NEB. INHALATION (07:24)
--- NOTE | 2022-08-28 07:27 | CPS ---
PRN Albut[facility]ol given [facility], Pharmacy notified
--- NOTE | 2022-08-28 07:29 | PN.CC_ITS ---
Assessment & Plan Assessment/Plan (1) Acute exacerbation of chronic obstructive pulmonary disease (COPD): PLAN: Plan RECOMMENDATIONS: 1. Wean FIO2 to maintain saturations at or above 90%. 2. Continue empiric antimicrobials along with scheduled bronchodilators and steroids. 3. Continue PAP therapy, as needed, throughout the day and nightly. 4. Obtain follow-up ABG. 5. Obtain limited echocardiogram to evaluate for cardiac level shunt. 6. Start scheduled Lasix twice daily. IMPRESSIONS: 1. Acute hypoxemic respiratory failure Unclear etiology. The patient does have known underlying obstructive lung disease and continues to smoke cigarettes daily. Therefore, an exacerbation of her underlying COPD seems most likely. In light of her presenting radiographic findings, underlying pneumonia is a possibility. Her echocardiogram did not reveal any significant abnormalities. Lower extremity Doppler study was negative for DVT. CTA chest showed no evidence for pulmonary embolism. The patient has emphysematous changes and bullae present along with faint groundglass opacities in the right upper lobe. The patient remains on antimicrobials along with bronchodilators and steroids. Recommend weaning supplemental oxygen to maintain saturations at or above 90%. She is not currently retaining CO2 based upon her ABG results. In general, however, the patient's current hypoxemia may be secondary to progressive chronic lung disease. In light of her current clinical status, will obtain a follow-up echocardiogram with bubble study to evaluate for cardiac level shunt. In addition, the patient will be placed on twice daily scheduled Lasix, as tolerated by hemodynamics and renal function. 2. Encephalopathy Likely metabolic in etiology. I would avoid sedating medications if feasible. The patient's arterial blood gas did not demonstrate evidence of CO2 retention. Although TSH was initially found to be low, free T4 level was within normal limits. Continue supportive measures as noted above. 3. Chronic tobacco dependency/history of obstructive sleep apnea/hypertension /hypothyroidism Complicates care, management, recovery and prognosis. Continue PAP therapy with naps and nightly. Continue home Synthroid regimen. This note was generated with [employer] dictation software. It may contain incorrect words, spelling, and punctuation that were not noted in checking the note before signing. Subjective Subjective The patient was seen and examined at the bedside this morning. Events from the last 24 hours have been reviewed. The patient is currently afebrile, hemodynamically stable and maintaining appropriate oxygen saturations on Airvo heated high flow with an FiO2 of 90% and flow rate of 60 L/min. Apparently, the patient was transferred to the ICU from PCU overnight as the patient was restless and there was concern that she would require Precedex to facilitate adherence with BiPAP. However, the patient never had to be placed on BiPAP or Precedex. The patient tolerated a one-time dose of IV Lasix yesterday. She is currently documented to be overall net -1.7 L for the hospitalization. Creatinine is within normal limits. Objective Data Objective Data The patient's most recent lab work, culture data and imaging studies have all been personally reviewed. Prior surface echocardiogram from August 25 was limited, but did demonstrate an ejection fraction of 60%. Infectious work-up has been unrevealing to date. Vital Signs: Vital Signs Temp Pulse Resp BP Pulse Ox O2 Del Method O2 Flow Rate 98.2 F 80 18 146/78 H 95 Airvo 60 08/28/22 06:00 08/28/22 07:26 08/28/22 07:26 08/28/22 07:00 08/28/22 07:26 08/28/22 07:26 08/28/22 07:26 FiO2 92 08/28/22 07:26 Oxygen Flow Rate (L/min) 60 Oxygen Delivery Method Airvo Weight: 154 lb 8.705 oz Body Mass Index (BMI) 33.3 Intake & Output: Intake and Output for Last 24 Hours 08/26/22 08/27/22 08/28/22 23:59 23:59 23:59 Intake Total 660 / 900 960 / 960 100 / 100 Output Total 900 / 900 1700 / 1700 Balance -240 / 0 -740 / -740 100 / 100 Lab / Micro Data Attestation: I reviewed the patient's lab results. Result Diagrams: 08/28/22 04:55 08/28/22 04:55 Labs: Laboratory Results - last 24 hr 08/27/22 08:31: B-Natriuretic Peptide 157.9 H 08/27/22 08:31: Procalcitonin < 0.04 08/28/22 04:55: WBC 10.8, RBC 4.14 L, Hgb 10.7 L, Hct 35.2 L, MCV 85.0, MCH 25.8 L, MCHC 30.4 L, RDW Std Deviation 44.9 H, RDW Coeff of [place] 14.6, Plt Count 332, MPV 9.6, Immature Gran % (Auto) 0.600, Neut % (Auto) 77.7 H, Lymph % (Auto) 13.7 L, [place] % (Auto) 7.8, Eos % (Auto) 0.0, Baso % (Auto) 0.2, Absolute Neuts (auto) 8.4 H, Absolute Lymphs (auto) 1.49, Nucleated RBC % 0 08/28/22 04:55: Sodium 144, Potassium 3.9, Chloride 108 H, Carbon Dioxide 30.0, Anion Gap 6, BUN 40 H, Creatinine 0.94, Estim Creat Clear Calc 64.27, Est GFR (MDRD) Af Amer 77, Est GFR (MDRD) Non-Af 63, BUN/Creatinine Ratio 42.7 H, Glucose 154 H, Calcium 9.6 Micro: Microbiology 08/23/22 20:45 Mucosa - Nasopharyngeal Respiratory Panel (PCR) - Final 08/23/22 16:30 Nasal Secretion SARS-CoV-2 & FLU Antigen (Rapid) - Final Radiography Diagnostic Testing: Radiology Impression Chest CTA 08/27/22 06:27 IMPRESSION: No evidence of pulmonary embolism. Emphysematous changes. Focal groundglass appearance in the right upper lobe with increased markings in the right lower lobe. Electronically Signed: Luis Antonio Mota MD at 8:33 EDT , Rhythm Strip Rhythm Strip: Sinus Tach Rate: 105 Ectopy: None Physical Exam Const Constitutional Narrative: Restless and confused. Currently on heated high flow oxygen. HEENT normocephalic and head/scalp atraumatic Eyes PERRL Pupil: dilated Neck supple General: trachea midline Chest inspection of chest normal Resp normal respiratory effort Auscultation: diminished lung sounds Cardio regular rate and regular rhythm GI normal to inspection, nondistended, normoactive bowel sounds Extremity no clubbing, cyanosis or edema Skin no rashes or lesions noted Neuro moves all extremities and no focal motor deficits Psych Activity / Motor Behavior: restless Charges/Coding Visit Charges Inpatient E&M: 39337 Subs Hosp L3
[2022-08-28 08:06] LABS: Allen Test Positive; Base Excess 5 mmol/L (-2 to +2); Bicarbonate 29.4 mmol/L (22-26); Blood Gas Specimen Type ART; FI02 92; Mode CPAP/PS; PO2 58 mmHG (75-100); SITE R Brach; SO2 91 % (95-99); Total Carbon Dioxide 31 mmol/L; pCO2 43.1 mmHg (35-45); pH 7.44 (7.35-7.45)
[2022-08-28] MEDS: Enoxaparin 40 MG/0.4 ML Syringe SC (10:04)
[2022-08-28] MEDS: Triamcinolone Acetonide 0.1% Cream 15 gm 1 APPLIC TOPICAL (10:05)
[2022-08-28] MEDS: Furosemide 40 MG/4 ML Vial IV ×2 (10:08→17:37)
--- NOTE | 2022-08-28 10:30 | NURSING ---
patient restless sitting up in bed coughing, sats dropped to mid 70s on airvo 60L/92%, sats not recovering, placed on bipap 100% at this time. Patient began to relex back in bed and close eyes, O2 sats remained in mid 80s for approx 10 minutes after placing bipap. Sats improved to 90% after approximately 12 minutes.
--- NOTE | 2022-08-28 11:19 | PN.HOSP_ITS ---
Reason for Visit Reason for Visit: Diagnoses Obstructive sleep apnea (adult) (pediatric) (08/23/22) Chronic obstructive pulmonary disease with (acute) exacerbation (08/23/22) Acute respiratory failure with hypoxia (08/23/22) Acute kidney failure, unspecified (08/23/22) Subjective Subjective Follow-up for acute on chronic combined respiratory failure. Patient was restless taking her off oxygen confused, hypoxia yesterday with increased wheezing and respiratory distress therefore transferred to ICU. In ICU patient on 100% FiO2 AVAPS. Objective Data Objective Data Vital Signs: Vital Signs Temp Pulse Resp BP Pulse Ox O2 Del Method O2 Flow Rate 99.8 F H 99 25 H 164/95 H 90 Airvo 60 08/28/22 08:00 08/28/22 09:00 08/28/22 09:00 08/28/22 09:00 08/28/22 09:00 08/28/22 09:00 08/28/22 09:00 FiO2 90 08/28/22 09:00 Oxygen Flow Rate (L/min) 60 Oxygen Delivery Method Airvo Weight: 154 lb 8.705 oz Body Mass Index (BMI) 33.3 Intake & Output: Intake and Output for Last 24 Hours 08/26/22 08/27/22 08/28/22 23:59 23:59 23:59 Intake Total 660 / 900 960 / 960 100 / 100 Output Total 900 / 900 1700 / 1700 Balance -240 / 0 -740 / -740 100 / 100 Lab / Micro Data Result Diagrams: 08/28/22 04:55 08/28/22 04:55 Labs: Laboratory Results - last 24 hr 08/28/22 04:55: WBC 10.8, RBC 4.14 L, Hgb 10.7 L, Hct 35.2 L, MCV 85.0, MCH 25.8 L, MCHC 30.4 L, RDW Std Deviation 44.9 H, RDW Coeff of Genaro 14.6, Plt Count 332, MPV 9.6, Immature Gran % (Auto) 0.600, Neut % (Auto) 77.7 H, Lymph % (Auto) 13.7 L, [place] % (Auto) 7.8, Eos % (Auto) 0.0, Baso % (Auto) 0.2, Absolute Neuts (auto) 8.4 H, Absolute Lymphs (auto) 1.49, Nucleated RBC % 0 08/28/22 04:55: Sodium 144, Potassium 3.9, Chloride 108 H, Carbon Dioxide 30.0, Anion Gap 6, BUN 40 H, Creatinine 0.94, Estim Creat Clear Calc 64.27, Est GFR (MDRD) Af Amer 77, Est GFR (MDRD) Non-Af 63, BUN/Creatinine Ratio 42.7 H, Glucose 154 H, Calcium 9.6 Micro: Microbiology 08/23/22 20:45 Mucosa - Nasopharyngeal Respiratory Panel (PCR) - Final 08/23/22 16:30 Nasal Secretion SARS-CoV-2 & FLU Antigen (Rapid) - Final ABG Data ABG results: ABG 08/28/22 07:59 Specimen Type ART Sample Site R Brach pH 7.44 Bicarbonate Actual 29.4 H Total CO2 31 Base Excess 5 H O2 Saturation 91 L O2 % 92 ABG pCO2 43.1 ABG pO2 58 L Luke Test Positive Vent Mode CPAP/PS Clinical Comments airvo 60L 92% Rhythm Strip Rhythm Strip: Sinus Tach Rate: 105 Ectopy: None Physical Exam Narrative Patient is awake and looks more oriented. She answers simple questions. Has a staring look. Cannot answer simple orientation questions. 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 Returned from CTA Chest. Seen and examined. Physical exam General: Awake. On BiPAP machine. Understands simple questions. Looks oriented. BMI 34.8 kg/m? HEENT: Atraumatic, PERRLA, EOMI, Normocephalic Oral: On BiPAP/AVAPS. Neck: Thyroidectomy scar. Supple, No JVD, Negative Carotid Bruits Lungs: Air entry severely diminished in bilateral lung bases. Dyspnea at rest. Cardiovascular: Regular rate, Regular Rhythm, Normal S1, Normal S2, No murmurs Abdomen: Bowel Sounds Present, Soft, Non Tender, Non-Distended : No renal angle tenderness. No suprapubic tenderness. Extremities: No edema, Capillary Refill Less than 3 Seconds Skin: No stump ulcer. Musculoskeletal: Right BKA. No Tenderness to Palpation of Joints or Extremities Neurological: Cranial nerves II-XII grossly intact, nonfocal exam. No focal neurological deficit. Psych/Mental Status: Flat affect. Assessment & Plan Assessment/Plan (1) Acute exacerbation of chronic obstructive pulmonary disease (COPD): (2) RAUL (obstructive sleep apnea): (3) DANYEL (acute kidney injury): (4) Acute respiratory failure with hypoxia: PLAN: Plan #Acute on chronic hypoxemic and hypercapnic respiratory failure secondary to COPD exacerbation. In ED, patient was 83% on room air and was placed on supplemental oxygen but O2 dipped to 70s and she was transitioned onto nonrebreather and then subsequently to BiPAP -ABG obtained with PO2 of 70.? pH is 7.35 and PCO2 of 52.9. Patient has low BNP and chest x-ray did not show features of fluid overload therefore acute exacerbation of heart failure less likely. -Less likely AECHF 2/2 low BNP and cxr w/out signs of overload but on further review difficult to exclude infiltrate -Scheduled DuoNeb -White count was normal.? Procalcitonin ordered within low.? Likely noninfectious. -Placed on BiPAP at the emergency department, continued.? Titrate as needed. -Follows with Dr. Page on an outpatient basis -Most recent FEV1 68% of predicted 08/25: Patient on BiPAP 60% FiO2 16/9, respiratory rate 12. Patient is still short of breath. Continue DuoNeb and IV Solu-Medrol. Patient also not able to participate in VQ scan. On IV cefepime 08/26: Repeat chest x-ray initially reviewed does not show features of pulmonary edema. Patient still requires 55 to 60% FiO2 on BiPAP and 11 L of high flow oxygen. Lasix 20 mg IV empirically given. Respiratory panel negative. Repeat ABG shows pH 7.3 / on 11 L of high flow oxygen. VQ scan is ordered although chance of PE less likely venous duplex of lower extremities is negative. Pulmonary consult requested 08/27: Pulmonary consult reviewed and appreciated. Patient had CT angiogram which did not show PE but emphysematous changes and focal groundglass opacity in right upper lobe increased markings in right lower lobe. Patient is more confused as mentioned below 08/28: Patient transferred to ICU for restlessness, not able to keep BiPAP in r espiratory distress with hypoxia. On 100% FiO2 AVAPS. Limited echo is ordered to rule out cardiac shunt. On a scheduled Lasix twice daily. On low-dose Precedex drip. Repeat ABG shows 7.4 /58 on 92% 60 L Airvo. Acute encephalopathy most likely due to benzodiazepine/polypharmacy: Initially patient was given Ativan about 2 days ago that was discontinued and put on Seroquel to control the agitation with holding parameters. Patient also on duloxetine and buspirone. ABG done yesterday did not show increase CO2 retention. All sedative, tranquilizers are not discontinued including Seroquel, Ativan, buspirone. 08/28: Encephalopathy confusion better in the morning. As per last night hospi talist note, she was restless and confused and was pulling of the BiPAP mask. #DANYEL on CKD Stage 3a -On presentation creatinine was 1.97.? Baseline creatinine is around 1.2 -Likely secondary to overdiuresis at home,BUN was 28, BUN over creatinine 14.2 -Likely ATN. -Hold home Lasix.? Hold home NSAIDs. -08/25: Creatinine 1.29, estimated creatinine clearance 48 mill per minute. Her baseline is around 1.13. 08/27: Sodium and chloride elevated. Creatinine 1.03. BUN 38. Mild compensated normal anion gap metabolic acidosis. Creatinine baseline. DANYEL resolved. 08/28: Sodium is 144, chloride 108. BUNs/creatinine 40/0.94. Mild lethargy, confusion obtunded probably due to Seroquel: Patient was agitated not able to keep BiPAP 2 days ago and required Ativan. On 08/25, patient was put on Seroquel for agitation and anxiety control. Today she is more lethargic and sleepy and disoriented. Patient does not have leukocytosis. ABG shows normal compensated pH but she has hypoxia. Liver chemistry and electrolytes ordered. #Heart failure with preserved ejection fraction -08/25: Echo reported EF 60% with normal diastolic for age. Normal right ventricle. Normal right and left atria. Technically difficult study normal tricuspid valve. No aortic stenosis or insufficiency. Heart failure core measures including intake and output, fluid restriction less than 1500 mL, daily weight monitoring, kidney and electrolytes monitoring 08/26: Does not seem to be in acute exacerbation. #History of RAUL -NIPPV at home, on BiPAP at present -At her visit 06/03/2022 in the pulm office her compliance was 100% with current settings of AutoPap 8 to 10 cm of water with residual AHI of 0.2 events per hour and no apparent leaks #Hypertension -Blood pressure is erratic. -Home blood pressure medication continued -Trend blood pressure and adjust blood pressure medications. #Hypothyroidism -TSH 0.02 on 07/30/2022 with a free T4 of 0.83 and a free T3 of 1.5. Repeat free T4 0.95.? Free T3 2.7. TSH 0.06. Patient had decreased all TSH free T4 and free T3. Which may be due to central hypothyroidism or euthyroid sick syndrome. Levothyroxine dose increased to 75 mcg daily. Patient also on levothyroxine 25 mcg daily. Repeat thyroid function test after 3 months with PCP. Will need further follow-up with slurry tank tender as an outpatient for further work-up if the patient has central hypothyroidism #Tobacco use -Advise cessation especially given medical comorbidities DVT prophylaxis Subcutaneous Lovenox ordered. Charges/Coding Visit Charges Inpatient E&M: 19914 Subs Hosp L3
--- NOTE | 2022-08-28 12:01 | CT_ITS ---
STUDY: CT BRAIN WITHOUT CONTRAST REASON FOR EXAM: Female, 67 years old. Mental status change RADIATION DOSAGE (If Supplied By Facility): CTDIvol = ( 44.99 ) mGy, DLP = ( 745.49 ) mGycm TECHNIQUE: Transaxial CT imaging of the brain was performed without administration of intravenous contrast material. Individualized dose optimization techniques were used for this CT. COMPARISON: Comparison is made with prior study dated October 06, 2018. FINDINGS: Normal soft tissue structures. Normal calvarium. There is mild cerebral atrophy with widening of the extra-axial spaces and ventricular dilatation. Normal white matter tracts of the cerebral hemispheres. Normal basal ganglia and thalami. Normal brainstem. Normal cerebellum. There is no intracranial hemorrhage. There are no findings of an acute ischemic infarction. Normal visualized paranasal sinuses. CT/Brain/Head without Contrast IMPRESSION: Chronic involutional changes of the brain. Electronically Signed: Luis Antonio Mota MD at 12:47 EDT ,
[2022-08-28] MEDS: Acetaminophen 325 MG Tablet 650 MG PO (19:21)
[2022-08-28] MEDS: Atorvastatin Calcium 80 MG Tablet PO (20:39)
[2022-08-28] MEDS: Metoprolol Tartrate 25 MG Tablet 12.5 MG PO (20:39)
[2022-08-28] MEDS: Montelukast 10 MG Tablet PO (20:40)
[2022-08-28] MEDS: Ondansetron 4 MG/2 ML Vial IV (23:01)
--- NOTE | 2022-08-28 23:33 | CPS ---
[2318] Pt. switched over from AirVo to AVAPS at this time.
[2022-08-29] VITALS (31 sets, daily range): BP systolic 94–151; BP diastolic 65–96; PULSE 86–107; RESP 14–28; TEMP 36.1–37.2; O2SAT 94–99; BMI 32.4
[2022-08-29 03:02] LABS: Absolute Lymphocyte Count 1.31 X10^3/uL (0.83-4.51); Absolute Neutrophil Count 10.9 X10^3/uL (2.0-7.7); Basophil# 0.01 X10^3/uL; Basophil% 0.1 % (0-1); Hematocrit 36.4 % (37-47); Lymphocyte # 1.31 X10^3/ul (0.83-4.51); Lymphocyte % 9.9 % (19-41); Mean Corp Hgb Conc 30.2 g/dL (32-36); Mean Corpuscular Hgb 25.8 pg (27.0-32.0); Mean Corpuscular Volume 85.2 fL (81-99); Monocyte# 0.85 X10^3/uL; Monocyte% 6.4 % (0-10); NRBC Flagged by Analyzer 0 % (0-5); Neutrophil # 10.94 X10^3/uL (2.7-7.7); Platelet Count 323 K/mm3 (150-450); RBC Distribution Width CV 14.6 % (11.6-14.6); RBC Distribution Width SD 45.1 fl (35.1-43.9); Red Blood Count 4.27 M/mm3 (4.2-5.4); White Blood Count 13.2 K/mm3 (4.4-11.0)
[2022-08-29 03:55] LABS: Anion Gap 9 (5-15); BUN 47 mg/dL (7-18); BUN/Creat Ratio 47.9 RATIO (10-20); Calcium,Total 9.2 mg/dL (8.5-10.1); Chloride 108 mmol/L (98-107); Creatinine, Serum 0.98 mg/dL (0.55-1.02); EST Glomerular Filtration Rate 60 mL/min (>60); Est Glom Filt Rate - Afr Amer 73 mL/min (>60); Estimated Creatinine Clearance 61.65 ml/min; Glucose 162 mg/dL (74-106); Potassium 3.7 mmol/L (3.5-5.1); Sodium Level 147 mmol/L (136-145)
[2022-08-29] MEDS: 0.9% Saline Lock 10 ML Syringe IV (05:38)
[2022-08-29] MEDS: Methylprednisolone Sod Succ 40 MG/ML VIAL IV (05:39)
[2022-08-29] MEDS: Levothyroxine 75 MCG Tablet PO (05:39)
[2022-08-29] MEDS: Liothyronine 5 MCG Tablet 25 MCG PO (05:39)
--- NOTE | 2022-08-29 07:09 | PCM.PN.INT ---
Assessment & Plan Assessment/Plan (1) Acute exacerbation of chronic obstructive pulmonary disease (COPD): PLAN: Plan RECOMMENDATIONS: 1. Wean FIO2 to maintain saturations at or above 90%. 2. Continue scheduled bronchodilators. 3. Discontinue steroids over concerns this could be contributing to delirium. 4. Continue PAP therapy, as needed, throughout the day and nightly. 5. Continue diuretics as tolerated by hemodynamics and renal function. 6. Swallow evaluation with dietary advancement. 7. Mobilize patient as tolerated. IMPRESSIONS: 1. Acute hypoxemic respiratory failure Unclear etiology. The patient does have known underlying obstructive lung disease and continues to smoke cigarettes daily. Therefore, an exacerbation of her underlying COPD seems most likely. In light of her presenting radiographic findings, underlying pneumonia is a possibility. Her echocardiogram did not reveal any significant abnormalities. Lower extremity Doppler study was negative for DVT. CTA chest showed no evidence for pulmonary embolism. The patient has emphysematous changes and bullae present along with faint groundglass opacities in the right upper lobe. The patient has completed a treatment course of antibiotics. She remains on bronchodilators. IV steroids will be discontinued over concerns this could be contributing to her delirium. Plan to wean FiO2 to maintain saturations at or above 90%. Continue scheduled diuretics as tolerated by hemodynamics and renal function. In general, however, the patient's current hypoxemia may be secondary to progressive chronic lung disease. 2. Encephalopathy Likely metabolic in etiology. I would avoid sedating medications if feasible. The patient's arterial blood gas did not demonstrate evidence of CO2 retention. Although TSH was initially found to be low, free T4 level was within normal limits. Continue supportive measures as noted above. I do suspect that the patient has underlying delirium. Therefore, I am going to discontinue her IV steroids. 3. Chronic tobacco dependency/history of obstructive sleep apnea/hypertension/hypothyroidism Complicates care, management, recovery and prognosis. Continue PAP therapy with naps and nightly. Continue home Synthroid regimen. This note was generated with [employer] dictation software. It may contain incorrect words, spelling, and punctuation that were not noted in checking the note before signing. Subjective Subjective The patient was seen and examined at the bedside this morning. Events from the last 24 hours have been reviewed. The patient is currently afebrile, hemodynamically stable and maintaining appropriate oxygen saturations on Airvo heated high flow with an FiO2 requirement of 70% and flow rate of 50 L/min. The patient is documented to be overall net -2.3 L for the hospitalization. She did receive IV Lasix x2 yesterday. Limited echocardiogram failed to demonstrate evidence of a cardiac level shunt. The patient remains confused and disoriented. However, CT head yesterday was unrevealing. Objective Data Objective Data The patient's most recent lab work, culture data and imaging studies have all been personally reviewed. Prior surface echocardiogram from August 25 was limited, but did demonstrate an ejection fraction of 60%. Infectious work-up has been unrevealing to date. Vital Signs: Vital Signs Temp Pulse Resp BP Pulse Ox O2 Del Method O2 Flow Rate 98.7 F 88 19 H 148/77 H 96 Airvo 50 08/29/22 06:00 08/29/22 07:00 08/29/22 07:00 08/29/22 07:00 08/29/22 07:00 08/29/22 07:00 08/29/22 07:00 FiO2 70 08/29/22 07:00 Oxygen Flow Rate (L/min) 50 Oxygen Delivery Method Airvo Weight: 150 lb 1.6 oz Body Mass Index (BMI) 32.4 Intake & Output: Intake and Output for Last 24 Hours 08/27/22 08/28/22 08/29/22 23:59 23:59 23:59 Intake Total 960 / 960 300 / 300 100 / 100 Output Total 1700 / 1700 800 / 800 50 / 50 Balance -740 / -740 -500 / -500 50 / 50 Lab / Micro Data Attestation: I reviewed the patient's lab results. Result Diagrams: 08/29/22 02:58 08/29/22 02:58 Labs: Laboratory Results - last 24 hr 08/29/22 02:58: WBC 13.2 H, RBC 4.27, Hgb 11.0 L, Hct 36.4 L, MCV 85.2, MCH 25.8 L, MCHC 30.2 L, RDW Std Deviation 45.1 H, RDW Coeff of Genaro 14.6, Plt Count 323, MPV 10.0, Immature Gran % (Auto) 0.600, Neut % (Auto) 83.0 H, Lymph % (Auto) 9.9 L, [place] % (Auto) 6.4, Eos % (Auto) 0.0, Baso % (Auto) 0.1, Absolute Neuts (auto) 10.9 H, Absolute Lymphs (auto) 1.31, Nucleated RBC % 0 08/29/22 02:58: Sodium 147 H, Potassium 3.7, Chloride 108 H, Carbon Dioxide 30.0, Anion Gap 9, BUN 47 H, Creatinine 0.98, Estim Creat Clear Calc 61.65, Est GFR (MDRD) Af Amer 73, Est GFR (MDRD) Non-Af 60, BUN/Creatinine Ratio 47.9 H, Glucose 162 H, Calcium 9.2 Micro: Microbiology 08/23/22 20:45 Mucosa - Nasopharyngeal Respiratory Panel (PCR) - Final 08/23/22 16:30 Nasal Secretion SARS-CoV-2 & FLU Antigen (Rapid) - Final ABG Data ABG results: ABG 08/28/22 07:59 Specimen Type ART Sample Site R Brach pH 7.44 Bicarbonate Actual 29.4 H Total CO2 31 Base Excess 5 H O2 Saturation 91 L O2 % 92 ABG pCO2 43.1 ABG pO2 58 L Luke Test Positive Vent Mode CPAP/PS Clinical Comments airvo 60L 92% Radiography Diagnostic Testing: Radiology Impression Echocardiogram 08/28/22 07:00 Interpretation Summary The left ventricular ejection fraction is 60 %. Bubble contrast study is negative for PFO/ASD. Ordering Physician: Caesar Raza Referring Physician: Chrystal Michel Performed By: Chad Noonan RCS Brain CT 08/28/22 12:01 IMPRESSION: Chronic involutional changes of the brain. Electronically Signed: Luis Antonio Mota MD at 12:47 EDT , Rhythm Strip Rhythm Strip: Sinus Tach Rate: 105 Ectopy: None Physical Exam Const Constitutional Narrative: Restless and confused. Currently on heated high flow oxygen. HEENT normocephalic and head/scalp atraumatic Eyes PERRL Pupil: dilated Neck supple General: trachea midline Chest inspection of chest normal Resp normal respiratory effort Auscultation: diminished lung sounds Cardio regular rate and regular rhythm GI normal to inspection, nondistended, normoactive bowel sounds Extremity no clubbing, cyanosis or edema Skin no rashes or lesions noted Neuro moves all extremities and no focal motor deficits Psych Mood & Affect: flat affect Charges/Coding Visit Charges Inpatient E&M: 41920 Subs Hosp L3
[2022-08-29] MEDS: Ipratropium/Albuterol Sulfate 3 ML AMPUL.NEB INHALATION ×4 (07:50→19:05)
--- NOTE | 2022-08-29 08:11 | PCM.PN.HOSP ---
Reason for Visit Reason for Visit: Diagnoses Obstructive sleep apnea (adult) (pediatric) (08/23/22) Chronic obstructive pulmonary disease with (acute) exacerbation (08/23/22) Acute respiratory failure with hypoxia (08/23/22) Acute kidney failure, unspecified (08/23/22) Objective Data Objective Data Vital Signs: Vital Signs Temp Pulse Resp BP Pulse Ox O2 Del Method O2 Flow Rate 98.7 F 88 19 H 148/77 H 96 Airvo 50 08/29/22 06:00 08/29/22 07:00 08/29/22 07:00 08/29/22 07:00 08/29/22 07:00 08/29/22 07:00 08/29/22 07:00 FiO2 70 08/29/22 07:00 Oxygen Flow Rate (L/min) 50 Oxygen Delivery Method Airvo Weight: 150 lb 1.6 oz Body Mass Index (BMI) 32.4 Intake & Output: Intake and Output for Last 24 Hours 08/27/22 08/28/22 08/29/22 23:59 23:59 23:59 Intake Total 960 / 960 300 / 300 100 / 100 Output Total 1700 / 1700 800 / 800 50 / 50 Balance -740 / -740 -500 / -500 50 / 50 Lab / Micro Data Result Diagrams: 08/29/22 02:58 08/29/22 02:58 Labs: Laboratory Results - last 24 hr 08/29/22 02:58: WBC 13.2 H, RBC 4.27, Hgb 11.0 L, Hct 36.4 L, MCV 85.2, MCH 25.8 L, MCHC 30.2 L, RDW Std Deviation 45.1 H, RDW Coeff of Genaro 14.6, Plt Count 323, MPV 10.0, Immature Gran % (Auto) 0.600, Neut % (Auto) 83.0 H, Lymph % (Auto) 9.9 L, [place] % (Auto) 6.4, Eos % (Auto) 0.0, Baso % (Auto) 0.1, Absolute Neuts (auto) 10.9 H, Absolute Lymphs (auto) 1.31, Nucleated RBC % 0 08/29/22 02:58: Sodium 147 H, Potassium 3.7, Chloride 108 H, Carbon Dioxide 30.0, Anion Gap 9, BUN 47 H, Creatinine 0.98, Estim Creat Clear Calc 61.65, Est GFR (MDRD) Af Amer 73, Est GFR (MDRD) Non-Af 60, BUN/Creatinine Ratio 47.9 H, Glucose 162 H, Calcium 9.2 Micro: Microbiology 08/23/22 20:45 Mucosa - Nasopharyngeal Respiratory Panel (PCR) - Final 08/23/22 16:30 Nasal Secretion SARS-CoV-2 & FLU Antigen (Rapid) - Final Radiography Diagnostic Testing: Radiology Impression Echocardiogram 08/28/22 07:00 Interpretation Summary The left ventricular ejection fraction is 60 %. Bubble contrast study is negative for PFO/ASD. Brain CT 08/28/22 12:01 IMPRESSION: Chronic involutional changes of the brain. Electronically Signed: Luis Antonio Mota MD at 12:47 EDT , Rhythm Strip Rhythm Strip: Sinus Tach Rate: 105 Ectopy: None Physical Exam Narrative Patient is confused, babbling, incomprehensible words and sounds. Has a staring look. Patient not on IV sedated report medication Seen and examined. Physical exam General: Awake. BMI 34.8 kg/m? HEENT: Atraumatic, PERRLA, EOMI, Normocephalic Oral: On Airvo. 70% FiO2. Intermittently on AVAPS. Neck: Thyroidectomy scar. Supple, No JVD, Negative Carotid Bruits Lungs: Air entry severely diminished in bilateral lung bases. No dyspnea at rest Cardiovascular: Regular rate, Regular Rhythm, Normal S1, Normal S2, No murmurs Abdomen: Bowel Sounds Present, Soft, Non Tender, Non-Distended : No renal angle tenderness. No suprapubic tenderness. Extremities: No edema, Capillary Refill Less than 3 Seconds Skin: No stump ulcer. Musculoskeletal: Right BKA. No Tenderness to Palpation of Joints or Extremities Neurological: Cranial nerves II-XII grossly intact, nonfocal exam. No focal neurological deficit. Psych/Mental Status: Flat affect. Assessment & Plan Assessment/Plan (1) Acute exacerbation of chronic obstructive pulmonary disease (COPD): (2) RAUL (obstructive sleep apnea): (3) DANYEL (acute kidney injury): (4) Acute respiratory failure with hypoxia: PLAN: Plan #Acute on chronic hypoxemic and hypercapnic respiratory failure secondary to COPD exacerbation. In ED, patient was 83% on room air and was placed on supplemental oxygen but O2 dipped to 70s and she was transitioned onto nonrebreather and then subsequently to BiPAP -ABG obtained with PO2 of 70.? pH is 7.35 and PCO2 of 52.9. Patient has low BNP and chest x-ray did not show features of fluid overload therefore acute exacerbation of heart failure less likely. -Less likely AECHF 2/2 low BNP and cxr w/out signs of overload but on further review difficult to exclude infiltrate -Scheduled DuoNeb -White count was normal.? Procalcitonin ordered within low.? Likely noninfectious. -Placed on BiPAP at the emergency department, continued.? Titrate as needed. -Follows with Dr. Page on an outpatient basis -Most recent FEV1 68% of predicted 08/25: Patient on BiPAP 60% FiO2 16/9, respiratory rate 12. Patient is still short of breath. Continue DuoNeb and IV Solu-Medrol. Patient also not able to participate in VQ scan. On IV cefepime 08/26: Repeat chest x-ray initially reviewed does not show features of pulmonary edema. Patient still requires 55 to 60% FiO2 on BiPAP and 11 L of high flow oxygen. Lasix 20 mg IV empirically given. Respiratory panel negative. Repeat ABG shows pH 7.3 on 11 L of high flow oxygen. VQ scan is ordered although chance of PE less likely venous duplex of lower extremities is negative. Pulmonary consult requested 08/27: Pulmonary consult reviewed and appreciated. Patient had CT angiogram which did not show PE but emphysematous changes and focal groundglass opacity in right upper lobe increased markings in right lower lobe. Patient is more confused as mentioned below 5: Patient transferred to ICU for restlessness, not able to keep BiPAP in respiratory distress with hypoxia. On 100% FiO2 AVAPS. Limited echo is ordered to rule out cardiac shunt. On a scheduled Lasix twice daily. On low-dose Precedex drip. Repeat ABG shows 7.4 /58 on 92% 60 L Airvo. 08/29: On airVo. On BiPAP/AVAPS at night. Limited contrast echo negative for PFO/ASD Acute encephalopathy most likely due to benzodiazepine/polypharmacy: Initially patient was given Ativan about 2 days ago that was discontinued and put on Seroquel to control the agitation with holding parameters. Patient also on duloxetine and buspirone. ABG done yesterday did not show increase CO2 retention. All sedative, tranquilizers are not discontinued including Seroquel, Ativan, buspirone. 08/28: Encephalopathy confusion better in the morning. As per last night hospitalist note, she was restless and confused and was pulling of the BiPAP mask. 08/29: Patient remains confused disoriented. Patient not on sedative medication. #DANYEL on CKD Stage 3a -On presentation creatinine was 1.97.? Baseline creatinine is around 1.2 -Likely secondary to overdiuresis at home,BUN was 28, BUN over creatinine 14.2 -Likely ATN. -Hold home Lasix.? Hold home NSAIDs. -08/25: Creatinine 1.29, estimated creatinine clearance 48 mill per minute. Her baseline is around 1.13. 08/27: Sodium and chloride elevated. Creatinine 1.03. BUN 38. Mild compensated normal anion gap metabolic acidosis. Creatinine baseline. DANYEL resolved. 08/28: Sodium is 144, chloride 108. BUNs/creatinine 40/0.94. 5: Serum sodium 147, chloride 108. BUN 47. Probably from diuretic. Patient on Lasix 40 mg IV twice daily for 2 doses. Mild lethargy, confusion obtunded probably due to Seroquel: Patient was agitated not able to keep BiPAP 2 days ago and required Ativan. On 08/25, patient was put on Seroquel for agitation and anxiety control. Today she is more lethargic and sleepy and disoriented. Patient does not have leukocytosis. ABG shows normal compensated pH but she has hypoxia. #Heart failure with preserved ejection fraction -08/25: Echo reported EF 60% with normal diastolic for age. Normal right ventricle. Normal right and left atria. Technically difficult study normal tricuspid valve. No aortic stenosis or insufficiency. Heart failure core measures including intake and output, fluid restriction less than 1500 mL, daily weight monitoring, kidney and electrolytes monitoring 08/26: Does not seem to be in acute exacerbation. #History of RAUL -NIPPV at home, on BiPAP at present -At her visit 06/03/2022 in the pulm office her compliance was 100% with current settings of AutoPap 8 to 10 cm of water with residual AHI of 0.2 events per hour and no apparent leaks #Hypertension -Blood pressure is erratic. -Home blood pressure medication continued -Trend blood pressure and adjust blood pressure medications. #Hypothyroidism -TSH 0.02 on 07/30/2022 with a free T4 of 0.83 and a free T3 of 1.5. Repeat free T4 0.95.? Free T3 2.7. TSH 0.06. Patient had decreased all TSH free T4 and free T3. Which may be due to central hypothyroidism or euthyroid sick syndrome. Levothyroxine dose increased to 75 mcg daily. Patient also on levothyroxine 25 mcg daily. Repeat thyroid function test after 3 months with PCP. Will need further follow-up with dietetic intern as an outpatient for further work-up if the patient has central hypothyroidism #Tobacco use -Advise cessation especially given medical comorbidities DVT prophylaxis Subcutaneous Lovenox ordered. Charges/Coding Visit Charges Inpatient E&M: 64892 Subs Hosp L3
--- NOTE | 2022-08-29 08:35 | RAD_ITS ---
STUDY: X-RAY CHEST REASON FOR EXAM: Female, 67 years old. Respiratory Failure TECHNIQUE: Single AP portable view of the chest. COMPARISON: Comparison is made with prior study of August 26, 2022. FINDINGS: EKG electrodes are seen. Minimal residual increased markings at the left lung base. Stable blunting of the left costophrenic angle. Normal size heart. Normal mediastinum and gage. Normal visualized pulmonary arteries. There is atherosclerotic tortuosity of the aortic arch and descending thoracic aorta. Prior fusion of the lower thoracic and upper lumbar vertebrae. Normal visualized ribs, clavicles, and shoulders. There is no demonstrated abnormality of the visualized soft tissue structures of the upper abdomen. RAD/Chest 1 View (Portable) IMPRESSION: Mild degree of increased markings at the left lung base with blunting of the left costophrenic angle. Electronically Signed: Luis Antonio Mota MD at 12:32 EDT ,
[2022-08-29 08:40] LABS: Base Excess 5 mmol/L (-2 to +2); Bicarbonate 29.8 mmol/L (22-26); Blood Gas Specimen Type ART; FI02 65; PO2 65 mmHG (75-100); SITE R Radial; SO2 92 % (95-99); Total Carbon Dioxide 31 mmol/L; pCO2 47.2 mmHg (35-45); pH 7.41 (7.35-7.45)
[2022-08-29] MEDS: Furosemide 40 MG/4 ML Vial IV ×2 (09:21→18:23)
[2022-08-29] MEDS: CHLORHEXIDINE GLUC 2% CLOTH 1 EACH TOWELETTE TOPICAL (09:21)
[2022-08-29] MEDS: Enoxaparin 40 MG/0.4 ML Syringe SC (09:21)
--- NOTE | 2022-08-29 19:41 | NURSING ---
called for update and to ask if son Kamron [phone] can have information. message left no answer
[2022-08-29] MEDS: DULoxetine Hcl 60 MG Capsule PO (21:50)
[2022-08-29] MEDS: Montelukast 10 MG Tablet PO (21:50)
[2022-08-29] MEDS: Atorvastatin Calcium 80 MG Tablet PO (21:50)
[2022-08-29] MEDS: Metoprolol Tartrate 25 MG Tablet 12.5 MG PO (21:51)
[2022-08-29] MEDS: guaiFENesin/D-Methorphan TAB.SR.12H 2 TABLET PO (21:51)
[2022-08-29] MEDS: Topiramate 50 MG Tablet PO (21:52)
[2022-08-29] MEDS: Triamcinolone Acetonide 0.1% Cream 15 gm 1 APPLIC TOPICAL (21:53)
[2022-08-30] VITALS (39 sets, daily range): BP systolic 94–163; BP diastolic 52–97; PULSE 82–117; RESP 14–38; TEMP 36.6–36.8; O2SAT 87–100; BMI 33.3
[2022-08-30 03:30] LABS: Absolute Lymphocyte Count 3.45 X10^3/uL (0.83-4.51); Absolute Neutrophil Count 12.1 X10^3/uL (2.0-7.7); Basophil# 0.03 X10^3/uL; Basophil% 0.2 % (0-1); Eosinophil# 0.26 X10^3/uL; Eosinophils% 1.5 % (0-5); Hematocrit 36.9 % (37-47); Hemoglobin 11.8 g/dL (12.0-15.0); Lymphocyte # 3.45 X10^3/ul (0.83-4.51); Lymphocyte % 19.7 % (19-41); Mean Corpuscular Hgb 26.7 pg (27.0-32.0); Mean Corpuscular Volume 83.5 fL (81-99); Mean Platelet Vol. 9.9 fl (6.2-12.0); Monocyte# 1.47 X10^3/uL; Monocyte% 8.4 % (0-10); NRBC Flagged by Analyzer 0 % (0-5); Neutrophil % 69.3 % (47-70); Platelet Count 319 K/mm3 (150-450); RBC Distribution Width CV 14.4 % (11.6-14.6); RBC Distribution Width SD 43.3 fl (35.1-43.9); Red Blood Count 4.42 M/mm3 (4.2-5.4); White Blood Count 17.5 K/mm3 (4.4-11.0)
[2022-08-30 04:02] LABS: Anion Gap 10 (5-15); BUN 57 mg/dL (7-18); BUN/Creat Ratio 54.3 RATIO (10-20); Calcium,Total 9.1 mg/dL (8.5-10.1); Chloride 98 mmol/L (98-107); Creatinine, Serum 1.05 mg/dL (0.55-1.02); EST Glomerular Filtration Rate 56 mL/min (>60); Est Glom Filt Rate - Afr Amer 67 mL/min (>60); Estimated Creatinine Clearance 55.88 ml/min; Glucose 131 mg/dL (74-106); Potassium 2.7 mmol/L (3.5-5.1); Sodium Level 139 mmol/L (136-145)
[2022-08-30 04:37] LABS: Magnesium 2.1 mg/dL (1.6-2.6); Phosphorus 2.4 mg/dL (2.5-4.9)
[2022-08-30] MEDS: Liothyronine 5 MCG Tablet 25 MCG PO (05:07)
[2022-08-30] MEDS: Levothyroxine 75 MCG Tablet PO (05:08)
--- NOTE | 2022-08-30 05:19 | PCM.PN.INT ---
Assessment & Plan Assessment/Plan (1) Acute exacerbation of chronic obstructive pulmonary disease (COPD): PLAN: Plan RECOMMENDATIONS: 1. Wean supplemental oxygen to maintain saturations at or above 90%. 2. Continue scheduled bronchodilators. 3. Continue PAP therapy, as needed, throughout the day and nightly. 4. Continue diuretics as tolerated by hemodynamics and renal function. 5. Dietary advancement per speech therapy. 6. Mobilize patient as tolerated. 7. Potassium repletion as ordered. IMPRESSIONS: 1. Acute hypoxemic respiratory failure Unclear etiology. The patient does have known underlying obstructive lung disease and continues to smoke cigarettes daily. Therefore, an exacerbation of her underlying COPD seems most likely. In light of her presenting radiographic findings, underlying pneumonia is a possibility. Her echocardiogram did not reveal any significant abnormalities. Lower extremity Doppler study was negative for DVT. CTA chest showed no evidence for pulmonary embolism. The patient has emphysematous changes and bullae present along with faint groundglass opacities in the right upper lobe. The patient has completed a treatment course of antibiotics. She remains on bronchodilators. IV steroids were discontinued over concerns this could be contributing to her delirium. The patient appears to be improving from an oxygenation standpoint with ongoing diuresis, which will be continued as tolerated by hemodynamics and renal function. Continue to wean supplemental oxygen to maintain saturations at or above 90%. Encourage incentive spirometer use and mobilize patient as tolerated 2. Encephalopathy Likely metabolic in etiology. I would avoid sedating medications if feasible. The patient's arterial blood gas did not demonstrate evidence of CO2 retention. Although TSH was initially found to be low, free T4 level was within normal limits. Continue supportive measures as noted above. I do suspect that the patient has underlying delirium, which appears to be improving after discontinuation of steroids. 3. Chronic tobacco dependency/history of obstructive sleep apnea/hypertension/hypothyroidism Complicates care, management, recovery and prognosis. Continue PAP therapy with naps and nightly. Continue home Synthroid regimen. This note was generated with [employer] dictation software. It may contain incorrect words, spelling, and punctuation that were not noted in checking the note before signing. Subjective Subjective The patient was seen and examined at the bedside this morning. Events from the last 24 hours have been reviewed. The patient is currently afebrile, hemodynamically stable and maintaining appropriate oxygen saturations on 5 L/min via nasal cannula. Nursing staff reported that the patient only wore her BiPAP for approximately 2 hours last night. The patient is documented to be overall net -2.7 L for the hospitalization. White count remains elevated at 17,000. Potassium is low at 2.7. The patient is more alert and appropriately interactive this morning. Objective Data Objective Data The patient's most recent lab work, culture data and imaging studies have all been personally reviewed. Prior surface echocardiogram from August 25 was limited, but did demonstrate an ejection fraction of 60%. Infectious work-up has been unrevealing to date. Vital Signs: Vital Signs Temp Pulse Resp BP Pulse Ox O2 Del Method O2 Flow Rate 97.9 F 83 22 H 119/66 93 Bi-pap 45 08/30/22 05:00 08/30/22 05:00 08/30/22 05:00 08/30/22 05:00 08/30/22 05:00 08/30/22 05:00 08/30/22 05:00 FiO2 50 08/30/22 05:00 Oxygen Flow Rate (L/min) 45 Oxygen Delivery Method Bi-pap Weight: 150 lb 1.6 oz Body Mass Index (BMI) 32.4 Intake & Output: Intake and Output for Last 24 Hours 08/28/22 08/29/22 08/30/22 23:59 23:59 23:59 Intake Total 300 / 300 380 / 380 450 / 450 Output Total 800 / 800 1150 / 1150 100 / 100 Balance -500 / -500 -770 / -770 350 / 350 Lab / Micro Data Attestation: I reviewed the patient's lab results. Result Diagrams: 08/30/22 03:21 08/30/22 03:21 Labs: Laboratory Results - last 24 hr 08/30/22 03:21: WBC 17.5 H, RBC 4.42, Hgb 11.8 L, Hct 36.9 L, MCV 83.5, MCH 26.7 L, MCHC 32.0 D, RDW Std Deviation 43.3, RDW Coeff of Genaro 14.4, Plt Count 319, MPV 9.9, Immature Gran % (Auto) 0.900, Neut % (Auto) 69.3, Lymph % (Auto) 19.7, [place] % (Auto) 8.4, Eos % (Auto) 1.5, Baso % (Auto) 0.2, Absolute Neuts (auto) 12.1 H, Absolute Lymphs (auto) 3.45, Nucleated RBC % 0 08/30/22 03:21: Sodium 139, Potassium 2.7 L*, Chloride 98, Carbon Dioxide 31.0, Anion Gap 10, BUN 57 H, Creatinine 1.05 H, Estim Creat Clear Calc 55.88, Est GFR (MDRD) Af Amer 67, Est GFR (MDRD) Non-Af 56 L, BUN/Creatinine Ratio 54.3 H, Glucose 131 H, Calcium 9.1 08/30/22 03:21: Phosphorus 2.4 L, Magnesium 2.1 Micro: Microbiology 08/23/22 20:45 Mucosa - Nasopharyngeal Respiratory Panel (PCR) - Final 08/23/22 16:30 Nasal Secretion SARS-CoV-2 & FLU Antigen (Rapid) - Final ABG Data ABG results: ABG 08/29/22 08:33 Specimen Type ART Sample Site R Radial pH 7.41 Bicarbonate Actual 29.8 H Total CO2 31 Base Excess 5 H O2 Saturation 92 L O2 % 65 ABG pCO2 47.2 H ABG pO2 65 L Clinical Comments airvo 50L 65% Radiography Diagnostic Testing: Radiology Impression Chest X-Ray 08/29/22 08:35 IMPRESSION: Mild degree of increased markings at the left lung base with blunting of the left costophrenic angle. Electronically Signed: Luis Antonio Mota MD at 12:32 EDT , Rhythm Strip Rhythm Strip: Sinus Tach Rate: 105 Ectopy: None Physical Exam Const alert and no apparent distress Constitutional Narrative: Confusion is improving. General Appearance: cooperative HEENT normocephalic and head/scalp atraumatic Eyes PERRL Pupil: dilated Neck supple General: trachea midline Chest inspection of chest normal Resp normal respiratory effort Auscultation: diminished lung sounds Cardio regular rate and regular rhythm GI normal to inspection, nondistended, normoactive bowel sounds Extremity no clubbing, cyanosis or edema Skin no rashes or lesions noted Neuro moves all extremities and no focal motor deficits Psych cooperative and affect normal Charges/Coding Visit Charges Inpatient E&M: 84326 Subs Hosp L3
[2022-08-30] MEDS: Potassium Chloride 10mEq/100mL 10 MEQ/100 ML IV.SOLN. 100 MEQ IV BOLUS ×4 (05:22→09:04)
[2022-08-30] MEDS: 0.9% Saline Lock 10 ML Syringe IV ×2 (05:42→06:27)
[2022-08-30] MEDS: Ondansetron 4 MG/2 ML Vial IV (05:42)
[2022-08-30] MEDS: Furosemide 40 MG/4 ML Vial IV (06:27)
[2022-08-30] MEDS: Ipratropium/Albuterol Sulfate 3 ML AMPUL.NEB INHALATION ×4 (07:07→19:57)
[2022-08-30] MEDS: Triamcinolone Acetonide 0.1% Cream 15 gm 1 APPLIC TOPICAL ×2 (09:37→19:51)
[2022-08-30] MEDS: Enoxaparin 40 MG/0.4 ML Syringe SC (09:37)
[2022-08-30] MEDS: CHLORHEXIDINE GLUC 2% CLOTH 1 EACH TOWELETTE TOPICAL (09:38)
--- NOTE | 2022-08-30 11:05 | CPS ---
Patient placed on Bipap by RN due to Oxygen desaturation.
[2022-08-30 11:20] LABS: Bedside Glucose 113 mg/dL (74-106)
--- NOTE | 2022-08-30 11:21 | CASEMGMT ---
DEWAYNE LOPEZ into pt room to discuss dc planning. Pt states that she has had HHC in the past but does not know from which company. She is interested in [facility] if her insurance is in network. Pt aware they are, she declines list of other in network agencies. Pt is aware that should she go home tomorrow the DEWAYNE LOPEZ will set up HHC on Thursday for her. She states she feels she will improve in therapy daily enough to go home. Pt does have oxygen through [facility], she states she does not have portability. Green sheet on chart to make sure company will deliver portable tank should she be dc'd. Pt denies further needs at this time. DEWAYNE LOPEZ to continue to follow.
--- NOTE | 2022-08-30 11:47 | PN.HOSP_ITS ---
Reason for Visit Reason for Visit: Diagnoses Obstructive sleep apnea (adult) (pediatric) (08/23/22) Chronic obstructive pulmonary disease with (acute) exacerbation (08/23/22) Acute respiratory failure with hypoxia (08/23/22) Acute kidney failure, unspecified (08/23/22) Objective Data Objective Data Vital Signs: Vital Signs Temp Pulse Resp BP Pulse Ox O2 Del Method O2 Flow Rate 98 F 106 H 30 H 111/64 95 Nasal Cannula 5 08/30/22 08:00 08/30/22 11:03 08/30/22 11:03 08/30/22 09:00 08/30/22 11:08 08/30/22 09:00 08/30/22 09:39 FiO2 85 08/30/22 11:08 Oxygen Flow Rate (L/min) 5 Oxygen Delivery Method Nasal Cannula Weight: 153 lb 11.2 oz Body Mass Index (BMI) 33.3 Intake & Output: Intake and Output for Last 24 Hours 08/28/22 08/29/22 08/30/22 23:59 23:59 23:59 Intake Total 300 / 300 380 / 380 850 / 850 Output Total 800 / 800 1150 / 1150 100 / 100 Balance -500 / -500 -770 / -770 750 / 750 Lab / Micro Data Result Diagrams: 08/30/22 03:21 08/30/22 03:21 Labs: Laboratory Results - last 24 hr 08/30/22 03:21: WBC 17.5 H, RBC 4.42, Hgb 11.8 L, Hct 36.9 L, MCV 83.5, MCH 26.7 L, MCHC 32.0 D, RDW Std Deviation 43.3, RDW Coeff of Genaro 14.4, Plt Count 319, MPV 9.9, Immature Gran % (Auto) 0.900, Neut % (Auto) 69.3, Lymph % (Auto) 19.7, [place] % (Auto) 8.4, Eos % (Auto) 1.5, Baso % (Auto) 0.2, Absolute Neuts (auto) 12.1 H, Absolute Lymphs (auto) 3.45, Nucleated RBC % 0 08/30/22 03:21: Sodium 139, Potassium 2.7 L*, Chloride 98, Carbon Dioxide 31.0, Anion Gap 10, BUN 57 H, Creatinine 1.05 H, Estim Creat Clear Calc 55.88, Est GFR (MDRD) Af Amer 67, Est GFR (MDRD) Non-Af 56 L, BUN/Creatinine Ratio 54.3 H, Glucose 131 H, Calcium 9.1 08/30/22 03:21: Phosphorus 2.4 L, Magnesium 2.1 08/30/22 11:01: POC Glucose 113 H Micro: Microbiology 08/23/22 20:45 Mucosa - Nasopharyngeal Respiratory Panel (PCR) - Final 08/23/22 16:30 Nasal Secretion SARS-CoV-2 & FLU Antigen (Rapid) - Final Radiography Diagnostic Testing: Radiology Impression Chest X-Ray 08/29/22 08:35 IMPRESSION: Mild degree of increased markings at the left lung base with blunting of the left costophrenic angle. Electronically Signed: Luis Antonio Mota MD at 12:32 EDT , Rhythm Strip Rhythm Strip: Sinus Tach Rate: 105 Ectopy: None Physical Exam Narrative Patient is confused, cannot differentiate between morning and evening. Has a staring look. Patient not on IV sedative medication Seen and examined. Physical exam General: Awake. Intermittent confusion and disorientation BMI 34.8 kg/m? HEENT: Atraumatic, PERRLA, EOMI, Normocephalic Oral: On high flow oxygen. Intermittently on AVAPS. Neck: Thyroidectomy scar. Supple, No JVD, Negative Carotid Bruits Lungs: Air entry severely diminished in bilateral lung bases. No dyspnea at rest Cardiovascular: Regular rate, Regular Rhythm, Normal S1, Normal S2, No murmurs Abdomen: Bowel Sounds Present, Soft, Non Tender, Non-Distended : No renal angle tenderness. No suprapubic tenderness. Extremities: No edema, Capillary Refill Less than 3 Seconds Skin: No stump ulcer. Musculoskeletal: Right BKA. No Tenderness to Palpation of Joints or Extremities Neurological: Cranial nerves II-XII grossly intact, nonfocal exam. No focal neurological deficit. Psych/Mental Status: Flat affect. Assessment & Plan Assessment/Plan (1) Acute exacerbation of chronic obstructive pulmonary disease (COPD): (2) RAUL (obstructive sleep apnea): (3) DANYEL (acute kidney injury): (4) Acute respiratory failure with hypoxia: PLAN: Plan #Acute on chronic hypoxemic and hypercapnic respiratory failure secondary to COPD exacerbation. In ED, patient was 83% on room air and was placed on supplemental oxygen but O2 dipped to 70s and she was transitioned onto nonrebreather and then subsequently to BiPAP -ABG obtained with PO2 of 70.? pH is 7.35 and PCO2 of 52.9. Patient has low BNP and chest x-ray did not show features of fluid overload therefore acute exacerbation of heart failure less likely. -Less likely AECHF 2/2 low BNP and cxr w/out signs of overload but on further review difficult to exclude infiltrate -Scheduled DuoNeb -White count was normal.? Procalcitonin ordered within low.? Likely noninfectious. -Placed on BiPAP at the emergency department, continued.? Titrate as needed. -Follows with Dr. Page on an outpatient basis -Most recent FEV1 68% of predicted 08/25: Patient on BiPAP 60% FiO2 16/9, respiratory rate 12. Patient is still short of breath. Continue DuoNeb and IV Solu-Medrol. Patient also not able to participate in VQ scan. On IV cefepime 08/26: Repeat chest x-ray initially reviewed does not show features of pulmonary edema. Patient still requires 55 to 60% FiO2 on BiPAP and 11 L of high flow oxygen. Lasix 20 mg IV empirically given. Respiratory panel negative. Repeat ABG shows pH 7.3 /67 on 11 L of high flow oxygen. VQ scan is ordered alt kym chance of PE less likely venous duplex of lower extremities is negative. Pulmonary consult requested 08/27: Pulmonary consult reviewed and appreciated. Patient had CT angiogram which did not show PE but emphysematous changes and focal groundglass opacity in right upper lobe increased markings in right lower lobe. Patient is more confused as mentioned below 08/28: Patient transferred to ICU for restlessness, not able to keep BiPAP in respiratory distress with hypoxia. On 100% FiO2 AVAPS. Limited echo is ordered to rule out cardiac shunt. On a scheduled Lasix twice daily. On low-dose Pr ecedex drip. Repeat ABG shows 7.4 /58 on 92% 60 L Airvo. 08/29: On airVo. On BiPAP/AVAPS at night. Limited contrast echo negative for PFO/ASD 08/30: Patient was on 5 L of oxygen in the morning. During physical therapy she got hypoxic and short of breath therefore put on AVAPS. Otherwise stable for transfer to floor. Lasix 40 mg IV 1 dose given. Acute encephalopathy most likely due to benzodiazepine/polypharmacy: Initially patient was given Ativan about 2 days ago that was discontinued and put on Seroquel to control the agitation with holding parameters. Patient also on duloxetine and buspirone. ABG done yesterday did not show increase CO2 retention. All sedative, tranquilizers are not discontinued including Seroquel, Ativan, buspirone. 08/28: Encephalopathy confusion better in the morning. As per last night hospitalist note, she was restless and confused and was pulling of the BiPAP mask. 08/29: Patient remains confused disoriented. Patient not on sedative medication. #DANYEL on CKD Stage 3a -On presentation creatinine was 1.97.? Baseline creatinine is around 1.2 -Likely secondary to overdiuresis at home,BUN was 28, BUN over creatinine 14.2 -Likely ATN. -Hold home Lasix.? Hold home NSAIDs. -08/25: Creatinine 1.29, estimated creatinine clearance 48 mill per minute. Her baseline is around 1.13. 08/27: Sodium and chloride elevated. Creatinine 1.03. BUN 38. Mild compensated normal anion gap metabolic acidosis. Creatinine baseline. DANYEL resolved. 08/28: Sodium is 144, chloride 108. BUNs/creatinine 40/0.94. 5: Serum sodium 147, chloride 108. BUN 47. Probably from diuretic. Patient on Lasix 40 mg IV twice daily for 2 doses. Mild lethargy, confusion obtunded probably due to Seroquel: Patient was agitated not able to keep BiPAP 2 days ago and required Ativan. On 08/25, patient was put on Seroquel for agitation and anxiety control. Today she is more lethargic and sleepy and disoriented. Patient does not have leukocytosis. ABG shows normal compensated pH but she has hypoxia. #Heart failure with preserved ejection fraction -08/25: Echo reported EF 60% with normal diastolic for age. Normal right ventricle. Normal right and left atria. Technically difficult study normal tricuspid valve. No aortic stenosis or insufficiency. Heart failure core measures including intake and output, fluid restriction less than 1500 mL, daily weight monitoring, kidney and electrolytes monitoring 08/26: Does not seem to be in acute exacerbation. #History of RAUL -NIPPV at home, on BiPAP at present -At her visit 06/03/2022 in the pulm office her compliance was 100% with current settings of AutoPap 8 to 10 cm of water with residual AHI of 0.2 events per hour and no apparent leaks #Hypertension -Blood pressure is erratic. -Home blood pressure medication continued -Trend blood pressure and adjust blood pressure medications. #Hypothyroidism -TSH 0.02 on 07/30/2022 with a free T4 of 0.83 and a free T3 of 1.5. Repeat free T4 0.95.? Free T3 2.7. TSH 0.06. Patient had decreased all TSH free T4 and free T3. Which may be due to central hypothyroidism or euthyroid sick syndrome. Levothyroxine dose increased to 75 mcg daily. Patient also on levothyroxine 25 mcg daily. Repeat thyroid function test after 3 months with PCP. Will need further follow-up with architectural inspector as an outpatient for further work-up if the patient has central hypothyroidism #Tobacco use -Advise cessation especially given medical comorbidities DVT prophylaxis Subcutaneous Lovenox ordered. Charges/Coding Visit Charges Inpatient E&M: 62959 [facility] Hosp L3
--- NOTE | 2022-08-30 11:52 | RAD_ITS ---
INDICATION: sob/hypoxia EXAMINATION/TECHNIQUE: X-RAY - portable upright AP chest x-ray COMPARISON: 08/29/2022 FINDINGS: LINES/DEVICES: None. LUNGS: No consolidation, edema or effusion. No pneumothorax. MEDIASTINUM AND CARDIOVASCULAR STRUCTURES: Cardiac silhouette not enlarged. Central airways and mediastinal contour are unremarkable. BONES AND SOFT TISSUES: No acute changes. RAD/Chest 1 View (Portable) IMPRESSION: Stable portable chest x-ray. Electronically Signed: Lucian Fletcher MD at 16:06 EDT ,
[2022-08-30 12:38] LABS: Anion Gap 11 (5-15); BUN 51 mg/dL (7-18); BUN/Creat Ratio 43.6 RATIO (10-20); Calcium,Total 9.5 mg/dL (8.5-10.1); Chloride 98 mmol/L (98-107); Creatinine, Serum 1.17 mg/dL (0.55-1.02); EST Glomerular Filtration Rate 49 mL/min (>60); Est Glom Filt Rate - Afr Amer 59 mL/min (>60); Estimated Creatinine Clearance 51.35 ml/min; Glucose 122 mg/dL (74-106); Potassium 3.3 mmol/L (3.5-5.1); Sodium Level 136 mmol/L (136-145)
[2022-08-30] MEDS: Metoprolol Tartrate 25 MG Tablet 12.5 MG PO ×2 (12:38→19:46)
[2022-08-30] MEDS: Clopidogrel Bisulfate 75 MG Tablet PO (12:39)
[2022-08-30] MEDS: DULoxetine Hcl 60 MG Capsule PO ×2 (12:39→19:47)
[2022-08-30] MEDS: Pregabalin 50 MG Capsule PO (12:45)
[2022-08-30] MEDS: Na Biphos/Potassium Phosphate PACKET 1 PACKET PO ×2 (16:30→19:48)
[2022-08-30] MEDS: Atorvastatin Calcium 80 MG Tablet PO (19:47)
[2022-08-30] MEDS: Montelukast 10 MG Tablet PO (19:47)
[2022-08-30] MEDS: Topiramate 50 MG Tablet PO (19:51)
[2022-08-31] VITALS (29 sets, daily range): BP systolic 89–161; BP diastolic 56–89; PULSE 86–106; RESP 14–34; TEMP 36.6–37.1; O2SAT 91–100; BMI 33.5
[2022-08-31 04:56] LABS: Absolute Lymphocyte Count 3.28 X10^3/uL (0.83-4.51); Absolute Neutrophil Count 10.5 X10^3/uL (2.0-7.7); Basophil# 0.02 X10^3/uL; Basophil% 0.1 % (0-1); Eosinophil# 0.26 X10^3/uL; Eosinophils% 1.7 % (0-5); Hemoglobin 11.9 g/dL (12.0-15.0); Lymphocyte # 3.28 X10^3/ul (0.83-4.51); Lymphocyte % 21.5 % (19-41); Mean Corp Hgb Conc 32.2 g/dL (32-36); Mean Corpuscular Hgb 26.5 pg (27.0-32.0); Mean Corpuscular Volume 82.4 fL (81-99); Mean Platelet Vol. 9.8 fl (6.2-12.0); Monocyte# 1.15 X10^3/uL; Monocyte% 7.5 % (0-10); NRBC Flagged by Analyzer 0 % (0-5); Neutrophil # 10.48 X10^3/uL (2.7-7.7); Neutrophil % 68.5 % (47-70); Platelet Count 343 K/mm3 (150-450); RBC Distribution Width SD 41.7 fl (35.1-43.9); Red Blood Count 4.49 M/mm3 (4.2-5.4); White Blood Count 15.3 K/mm3 (4.4-11.0)
[2022-08-31 05:05] LABS: ALB/GLOB Ratio 0.8 RATIO (0.9-2.4); AST(SGOT) 20 U/L (15-37); Alanine Aminotransfer ALT/SGPT 27 U/L (13-56); Albumin, Serum 3.1 g/dL (3.2-5.0); Alkaline Phosphatase 76 U/L (45-117); Anion Gap 10 (5-15); BUN 53 mg/dL (7-18); BUN/Creat Ratio 58.4 RATIO (10-20); Calcium,Total 9.1 mg/dL (8.5-10.1); Chloride 99 mmol/L (98-107); Creatinine, Serum 0.91 mg/dL (0.55-1.02); EST Glomerular Filtration Rate 66 mL/min (>60); Est Glom Filt Rate - Afr Amer 80 mL/min (>60); Estimated Creatinine Clearance 66.02 ml/min; Globulin 4.1 g/dL (2.2-4.2); Glucose 103 mg/dL (74-106); Phosphorus 3.6 mg/dL (2.5-4.9); Potassium 3.3 mmol/L (3.5-5.1); Protein, Total 7.2 g/dL (6.4-8.2); Sodium Level 138 mmol/L (136-145)
[2022-08-31] MEDS: Na Biphos/Potassium Phosphate PACKET 1 PACKET PO ×2 (05:33→19:48)
[2022-08-31] MEDS: Levothyroxine 75 MCG Tablet PO (05:33)
[2022-08-31] MEDS: Liothyronine 5 MCG Tablet 25 MCG PO (05:33)
--- NOTE | 2022-08-31 05:41 | PCM.PN.INT ---
Assessment & Plan Assessment/Plan (1) Acute exacerbation of chronic obstructive pulmonary disease (COPD): PLAN: Plan RECOMMENDATIONS: 1. Wean supplemental oxygen to maintain saturations at or above 90%. 2. Continue scheduled bronchodilators. 3. Continue PAP therapy, as needed, throughout the day and nightly. 4. Continue diuretics as tolerated by hemodynamics and renal function. 5. Dietary advancement per speech therapy. 6. Mobilize patient as tolerated. 7. Potassium repletion as ordered. IMPRESSIONS: 1. Acute hypoxemic respiratory failure Unclear etiology. The patient does have known underlying obstructive lung disease and continues to smoke cigarettes daily. Therefore, an exacerbation of her underlying COPD seems most likely. In light of her presenting radiographic findings, underlying pneumonia is a possibility. Her echocardiogram did not reveal any significant abnormalities. Lower extremity Doppler study was negative for DVT. CTA chest showed no evidence for pulmonary embolism. The patient has emphysematous changes and bullae present along with faint groundglass opacities in the right upper lobe. The patient has completed a treatment course of antibiotics. She remains on bronchodilators. IV steroids were discontinued over concerns this could be contributing to her delirium. The patient appears to be improving from an oxygenation standpoint with ongoing diuresis, which will be continued as tolerated by hemodynamics and renal function. Continue to wean supplemental oxygen to maintain saturations at or above 90%. Encourage incentive spirometer use and mobilize patient as tolerated 2. Encephalopathy Likely metabolic in etiology. I would avoid sedating medications if feasible. The patient's arterial blood gas did not demonstrate evidence of CO2 retention. Although TSH was initially found to be low, free T4 level was within normal limits. Continue supportive measures as noted above. I do suspect that the patient has underlying delirium, which appears to be improving after discontinuation of steroids. 3. Chronic tobacco dependency/history of obstructive sleep apnea/hypertension/hypothyroidism Complicates care, management, recovery and prognosis. Continue PAP therapy with naps and nightly. Continue home Synthroid regimen. This note was generated with [employer] dictation software. It may contain incorrect words, spelling, and punctuation that were not noted in checking the note before signing. Subjective Subjective The patient was seen and examined at the bedside this morning. Events from the last 24 hours have been reviewed. The patient is currently afebrile, hemodynamically stable and maintaining appropriate oxygen saturations on 5 L/min via nasal cannula. The patient wore her BiPAP overnight. She is documented to be overall net -3 L for the hospitalization. Potassium is low at 3.3. Creatinine remains within normal limits. The patient only received a one-time dose of IV Lasix yesterday. Objective Data Objective Data The patient's most recent lab work, culture data and imaging studies have all been personally reviewed. Prior surface echocardiogram from August 25 was limited, but did demonstrate an ejection fraction of 60%. Infectious work-up has been unrevealing to date. Vital Signs: Vital Signs Temp Pulse Resp BP Pulse Ox O2 Del Method O2 Flow Rate 98 F 98 21 H 135/80 H 99 Bi-pap 5 08/31/22 00:00 08/31/22 05:00 08/31/22 05:00 08/31/22 05:00 08/31/22 05:00 08/31/22 05:00 08/30/22 10:00 FiO2 65 08/31/22 05:00 Oxygen Flow Rate (L/min) 5 Oxygen Delivery Method Bi-pap Weight: 153 lb 11.2 oz Body Mass Index (BMI) 33.3 Intake & Output: Intake and Output for Last 24 Hours 08/29/22 08/30/22 08/31/22 23:59 23:59 23:59 Intake Total 380 / 380 850 / 850 Output Total 1150 / 1150 700 / 700 0 / 0 Balance -770 / -770 150 / 150 0 / 0 Lab / Micro Data Attestation: I reviewed the patient's lab results. Result Diagrams: 08/31/22 04:35 08/31/22 04:35 Labs: Laboratory Results - last 24 hr 08/30/22 11:01: POC Glucose 113 H 08/30/22 12:20: Sodium 136, Potassium 3.3 L, Chloride 98, Carbon Dioxide 27.0, Anion Gap 11, BUN 51 H, Creatinine 1.17 H, Estim Creat Clear Calc 51.35, Est GFR (MDRD) Af Amer 59 L, Est GFR (MDRD) Non-Af 49 L, BUN/Creatinine Ratio 43.6 H, Glucose 122 H, Calcium 9.5 08/31/22 04:35: Sodium 138, Potassium 3.3 L, Chloride 99, Carbon Dioxide 29.0, Anion Gap 10, BUN 53 H, Creatinine 0.91, Estim Creat Clear Calc 66.02, Est GFR (MDRD) Af Amer 80, Est GFR (MDRD) Non-Af 66, BUN/Creatinine Ratio 58.4 H, Glucose 103, Calcium 9.1, Phosphorus 3.6, Magnesium 2.0, Total Bilirubin 0.40, AST 20, ALT 27, Alkaline Phosphatase 76, Total Protein 7.2, Albumin 3.1 L, Globulin 4.1, Albumin/Globulin Ratio 0.8 L 08/31/22 04:35: WBC 15.3 H, RBC 4.49, Hgb 11.9 L, Hct 37.0, MCV 82.4, MCH 26.5 L, MCHC 32.2, RDW Std Deviation 41.7, RDW Coeff of Genaro 14.0, Plt Count 343, MPV 9.8, Immature Gran % (Auto) 0.700, Neut % (Auto) 68.5, Lymph % (Auto) 21.5, [place] % (Auto) 7.5, Eos % (Auto) 1.7, Baso % (Auto) 0.1, Absolute Neuts (auto) 10.5 H, Absolute Lymphs (auto) 3.28, Nucleated RBC % 0 Micro: Microbiology 08/23/22 20:45 Mucosa - Nasopharyngeal Respiratory Panel (PCR) - Final 08/23/22 16:30 Nasal Secretion SARS-CoV-2 & FLU Antigen (Rapid) - Final ABG Data ABG results: ABG 08/29/22 08:33 Specimen Type ART Sample Site R Radial pH 7.41 Bicarbonate Actual 29.8 H Total CO2 31 Base Excess 5 H O2 Saturation 92 L O2 % 65 ABG pCO2 47.2 H ABG pO2 65 L Clinical Comments airvo 50L 65% Radiography Diagnostic Testing: Radiology Impression Chest X-Ray 08/30/22 11:52 IMPRESSION: Stable portable chest x-ray. Electronically Signed: Lucian Fletcher MD at 16:06 EDT , Rhythm Strip Rhythm Strip: Sinus Tach Rate: 105 Ectopy: None Physical Exam Const alert and no apparent distress Constitutional Narrative: Confusion is improving. General Appearance: cooperative HEENT normocephalic and head/scalp atraumatic Eyes PERRL Pupil: dilated Neck supple General: trachea midline Chest inspection of chest normal Resp normal respiratory effort Auscultation: diminished lung sounds Cardio regular rate and regular rhythm GI normal to inspection, nondistended, normoactive bowel sounds Extremity General Extremity: amputation; Negative for clubbing or edema Skin no rashes or lesions noted Neuro CN's II-XII intact bilaterally and no focal motor deficits Psych Mood & Affect: flat affect Charges/Coding Visit Charges Inpatient E&M: 55795 Subs Hosp L2
[2022-08-31] MEDS: Ipratropium/Albuterol Sulfate 3 ML AMPUL.NEB INHALATION ×4 (07:13→20:27)
[2022-08-31] MEDS: Furosemide 40 MG/4 ML Vial IV (07:28)
[2022-08-31] MEDS: DULoxetine Hcl 60 MG Capsule PO ×2 (07:28→19:49)
[2022-08-31] MEDS: Enoxaparin 40 MG/0.4 ML Syringe SC (07:29)
[2022-08-31] MEDS: Metoprolol Tartrate 25 MG Tablet 12.5 MG PO ×2 (07:29→19:47)
[2022-08-31] MEDS: Triamcinolone Acetonide 0.1% Cream 15 gm 1 APPLIC TOPICAL ×2 (07:31→19:48)
[2022-08-31] MEDS: Clopidogrel Bisulfate 75 MG Tablet PO (07:31)
[2022-08-31] MEDS: Pregabalin 50 MG Capsule PO (07:35)
[2022-08-31] MEDS: 0.9% Saline Lock 10 ML Syringe IV ×2 (07:40→14:52)
--- NOTE | 2022-08-31 07:48 | PN.HOSP_ITS ---
Reason for Visit Reason for Visit: Diagnoses Obstructive sleep apnea (adult) (pediatric) (08/23/22) Chronic obstructive pulmonary disease with (acute) exacerbation (08/23/22) Acute respiratory failure with hypoxia (08/23/22) Acute kidney failure, unspecified (08/23/22) Objective Data Objective Data Vital Signs: Vital Signs Temp Pulse Resp BP Pulse Ox O2 Del Method O2 Flow Rate 98.7 F 98 30 H 133/84 H 96 Bi-pap 5 08/31/22 07:00 08/31/22 07:29 08/31/22 07:14 08/31/22 07:00 08/31/22 07:14 08/31/22 07:00 08/31/22 06:00 FiO2 65 08/31/22 07:14 Oxygen Flow Rate (L/min) 5 Oxygen Delivery Method Bi-pap Weight: 155 lb 9.6 oz Body Mass Index (BMI) 33.5 Intake & Output: Intake and Output for Last 24 Hours 08/29/22 08/30/22 08/31/22 23:59 23:59 23:59 Intake Total 380 / 380 850 / 850 Output Total 1150 / 1150 700 / 700 300 / 300 Balance -770 / -770 150 / 150 -300 / -300 Lab / Micro Data Result Diagrams: 08/31/22 04:35 08/31/22 04:35 Labs: Laboratory Results - last 24 hr 08/30/22 11:01: POC Glucose 113 H 08/30/22 12:20: Sodium 136, Potassium 3.3 L, Chloride 98, Carbon Dioxide 27.0, Anion Gap 11, BUN 51 H, Creatinine 1.17 H, Estim Creat Clear Calc 51.35, Est GFR (MDRD) Af Amer 59 L, Est GFR (MDRD) Non-Af 49 L, BUN/Creatinine Ratio 43.6 H, Glucose 122 H, Calcium 9.5 08/31/22 04:35: Sodium 138, Potassium 3.3 L, Chloride 99, Carbon Dioxide 29.0, Anion Gap 10, BUN 53 H, Creatinine 0.91, Estim Creat Clear Calc 66.02, Est GFR (MDRD) Af Amer 80, Est GFR (MDRD) Non-Af 66, BUN/Creatinine Ratio 58.4 H, Glucose 103, Calcium 9.1, Phosphorus 3.6, Magnesium 2.0, Total Bilirubin 0.40, AST 20, ALT 27, Alkaline Phosphatase 76, Total Protein 7.2, Albumin 3.1 L, Globulin 4.1, Albumin/Globulin Ratio 0.8 L 08/31/22 04:35: WBC 15.3 H, RBC 4.49, Hgb 11.9 L, Hct 37.0, MCV 82.4, MCH 26.5 L , MCHC 32.2, RDW Std Deviation 41.7, RDW Coeff of [place]aro 14.0, Plt Count 343, MPV 9.8, Immature Gran % (Auto) 0.700, Neut % (Auto) 68.5, Lymph % (Auto) 21.5, [place] % (Auto) 7.5, Eos % (Auto) 1.7, Baso % (Auto) 0.1, Absolute Neuts (auto) 10.5 H, Absolute Lymphs (auto) 3.28, Nucleated RBC % 0 Micro: Microbiology 08/23/22 20:45 Mucosa - Nasopharyngeal Respiratory Panel (PCR) - Final 08/23/22 16:30 Nasal Secretion SARS-CoV-2 & FLU Antigen (Rapid) - Final Radiography Diagnostic Testing: Radiology Impression Chest X-Ray 08/30/22 11:52 IMPRESSION: Stable portable chest x-ray. Electronically Signed: Lucian Fletcher MD at 16:06 EDT , Rhythm Strip Rhythm Strip: Sinus Tach Rate: 105 Ectopy: None Physical Exam Narrative Patient is confused, cannot differentiate between morning and evening. Has a staring look. Patient not on IV sedative medication Seen and examined. Physical exam General: Awake. Intermittent confusion and disorientation BMI 34.8 kg/m? HEENT: Atraumatic, PERRLA, EOMI, Normocephalic Oral: On high flow oxygen. Intermittently on AVAPS. Neck: Thyroidectomy scar. Supple, No JVD, Negative Carotid Bruits Lungs: Air entry severely diminished in bilateral lung bases. No dyspnea at rest Cardiovascular: Regular rate, Regular Rhythm, Normal S1, Normal S2, No murmurs Abdomen: Bowel Sounds Present, Soft, Non Tender, Non-Distended : No renal angle tenderness. No suprapubic tenderness. Extremities: No edema, Capillary Refill Less than 3 Seconds Skin: No stump ulcer. Musculoskeletal: Right BKA. No Tenderness to Palpation of Joints or Extremities Neurological: Cranial nerves II-XII grossly intact, nonfocal exam. No focal neurological deficit. Psych/Mental Status: Flat affect. Assessment & Plan Assessment/Plan (1) Acute exacerbation of chronic obstructive pulmonary disease (COPD): (2) RAUL (obstructive sleep apnea): (3) DANYEL (acute kidney injury): (4) Acute respiratory failure with hypoxia: PLAN: Plan #Acute on chronic hypoxemic and hypercapnic respiratory failure secondary to COPD exacerbation. In ED, patient was 83% on room air and was placed on supplemental oxygen but O2 dipped to 70s and she was transitioned onto nonrebreather and then subsequently to BiPAP -ABG obtained with PO2 of 70.? pH is 7.35 and PCO2 of 52.9. Patient has low BNP and chest x-ray did not show features of fluid overload therefore acute exacerbation of heart failure less likely. -Less likely AECHF 2/2 low BNP and cxr w/out signs of overload but on further review difficult to exclude infiltrate -Scheduled DuoNeb -White count was normal.? Procalcitonin ordered within low.? Likely noninfectious. -Placed on BiPAP at the emergency department, continued.? Titrate as needed. -Follows with Dr. Page on an outpatient basis -Most recent FEV1 68% of predicted 08/25: Patient on BiPAP 60% FiO2 16/9, respiratory rate 12. Patient is still short of breath. Continue DuoNeb and IV Solu-Medrol. Patient also not able to participate in VQ scan. On IV cefepime 08/26: Repeat chest x-ray initially reviewed does not show features of pulmonary edema. Patient still requires 55 to 60% FiO2 on BiPAP and 11 L of high flow oxygen. Lasix 20 mg IV empirically given. Respiratory panel negative. Repeat ABG shows pH 7.3 / on 11 L of high flow oxygen. VQ scan is ordered although chance of PE less likely venous duplex of lower extremities is negative. Pulmonary consult requested 08/27: Pulmonary consult reviewed and appreciated. Patient had CT angiogram which did not show PE but emphysematous changes and focal groundglass opacity in right upper lobe increased markings in right lower lobe. Patient is more confused as mentioned below 08/28: Patient transferred to ICU for restlessness, not able to keep BiPAP in respiratory distress with hypoxia. On 100% FiO2 AVAPS. Limited echo is ordered to rule out cardiac shunt. On a scheduled Lasix twice daily. On low-dose Precedex drip. Repeat ABG shows 7.4 / on 92% 60 L Airvo. 08/29: On airVo. On BiPAP/AVAPS at night. Limited contrast echo negative for PFO/ASD 08/30: Patient was on 5 L of oxygen in the morning. During physical therapy she got hypoxic and short of breath therefore put on AVAPS. Otherwise stable for transfer to floor. Lasix 40 mg IV 1 dose given. 08/31: Patient respiratory status is still tenuous. Yesterday, she she got very short of breath and had to put on BiPAP/AVAPS on changing position from chair to bed. Restricted mobility with right BKA Lasix 40 mg IV 1 dose given. Acute encephalopathy most likely due to benzodiazepine/polypharmacy although exact etiology unclear: Initially patient was given Ativan about 2 days ago that was discontinued and put on Seroquel to control the agitation with holding parameters. Patient also on duloxetine and buspirone. ABG done yesterday did not show increase CO2 retention. All sedative, tranquilizers are not discontinued including Seroquel, Ativan, buspirone. 08/28: Encephalopathy confusion better in the morning. As per last night hospitalist note, she was restless and confused and was pulling of the BiPAP mask. 08/29: Patient remains confused disoriented. Patient not on sedative medication. 08/31: Patient remains intermittently confused and disoriented variable throughout the day. In the morning she is oriented to time, state daytime. #DANYEL on CKD Stage 3a -On presentation creatinine was 1.97.? Baseline creatinine is around 1.2 -Likely secondary to overdiuresis at home,BUN was 28, BUN over creatinine 14.2 -Likely ATN. -Hold home Lasix.? Hold home NSAIDs. -08/25: Creatinine 1.29, estimated creatinine clearance 48 mill per minute. Her baseline is around 1.13. 08/27: Sodium and chloride elevated. Creatinine 1.03. BUN 38. Mild compensated normal anion gap metabolic acidosis. Creatinine baseline. DANYEL resolved. 08/28: Sodium is 144, chloride 108. BUNs/creatinine 40/0.94. 08/29: Serum sodium 147, chloride 108. BUN 47. Probably from diuretic. Patient on Lasix 40 mg IV twice daily for 2 doses. 08/31: Serum sodium 138, potassium 3.3. Patient on Neutra-Phos. BUNs/creatinine 53/0.91. Mild lethargy, confusion obtunded probably due to Seroquel: Patient was agitated not able to keep BiPAP 2 days ago and required Ativan. On 08/25, patient was put on Seroquel for agitation and anxiety control. Today she is more lethargic and sleepy and disoriented. Patient does not have leukocytosis. ABG shows normal compensated pH but she has hypoxia. 08/25: Patient is off sedative for last 3 to 4 days but he still remains intermittently confused and disoriented. #Heart failure with preserved ejection fraction -08/25: Echo reported EF 60% with normal diastolic for age. Normal right ventricle. Normal right and left atria. Technically difficult study normal tricuspid valve. No aortic stenosis or insufficiency. Heart failure core measures including intake and output, fluid restriction less than 1500 mL, daily weight monitoring, kidney and electrolytes monitoring 08/26: Does not seem to be in acute exacerbation. #History of RAUL -NIPPV at home, on BiPAP at present -At her visit 06/03/2022 in the pulm office her compliance was 100% with current settings of AutoPap 8 to 10 cm of water with residual AHI of 0.2 events per hour and no apparent leaks #Hypertension -Blood pressure is erratic. -Home blood pressure medication continued -Trend blood pressure and adjust blood pressure medications. #Hypothyroidism -TSH 0.02 on 07/30/2022 with a free T4 of 0.83 and a free T3 of 1.5. Repeat free T4 0.95.? Free T3 2.7. TSH 0.06. Patient had decreased all TSH free T4 and free T3. Which may be due to central hypothyroidism or euthyroid sick syndrome. Levothyroxine dose increased to 75 mcg daily. Patient also on levothyroxine 25 mcg daily. Repeat thyroid function test after 3 months with PCP. Will need further follow-up with drawing press operator as an outpatient for further work-up if the patient has central hypothyroidism #Tobacco use -Advise cessation especially given medical comorbidities DVT prophylaxis Subcutaneous Lovenox ordered. Charges/Coding Visit Charges Inpatient E&M: 64750 Subs Hosp L3
[2022-08-31] MEDS: Potassium Chloride 10mEq/100mL 10 MEQ/100 ML IV.SOLN. 100 MEQ IV BOLUS ×4 (08:13→11:25)
[2022-08-31] MEDS: CHLORHEXIDINE GLUC 2% CLOTH 1 EACH TOWELETTE TOPICAL (10:22)
[2022-08-31] MEDS: Ondansetron 4 MG/2 ML Vial IV (14:52)
[2022-08-31] MEDS: Montelukast 10 MG Tablet PO (19:48)
[2022-08-31] MEDS: Topiramate 50 MG Tablet PO (19:48)
[2022-08-31] MEDS: Atorvastatin Calcium 80 MG Tablet PO (19:49)
[2022-09-01] VITALS (40 sets, daily range): BP systolic 97–160; BP diastolic 40–105; PULSE 80–122; RESP 13–33; TEMP 36–36.8; O2SAT 86–100; BMI 33.3
[2022-09-01 04:26] LABS: Absolute Lymphocyte Count 2.98 X10^3/uL (0.83-4.51); Absolute Neutrophil Count 15.3 X10^3/uL (2.0-7.7); Basophil# 0.06 X10^3/uL; Basophil% 0.3 % (0-1); Eosinophil# 0.35 X10^3/uL; Eosinophils% 1.7 % (0-5); Hematocrit 38.9 % (37-47); Hemoglobin 12.1 g/dL (12.0-15.0); Lymphocyte # 2.98 X10^3/ul (0.83-4.51); Lymphocyte % 14.7 % (19-41); Mean Corp Hgb Conc 31.1 g/dL (32-36); Mean Corpuscular Hgb 25.8 pg (27.0-32.0); Mean Corpuscular Volume 82.9 fL (81-99); Mean Platelet Vol. 10.4 fl (6.2-12.0); Monocyte# 1.32 X10^3/uL; Monocyte% 6.5 % (0-10); NRBC Flagged by Analyzer 0 % (0-5); Neutrophil # 15.33 X10^3/uL (2.7-7.7); Neutrophil % 75.9 % (47-70); Platelet Count 344 K/mm3 (150-450); RBC Distribution Width CV 14.1 % (11.6-14.6); RBC Distribution Width SD 42.2 fl (35.1-43.9); Red Blood Count 4.69 M/mm3 (4.2-5.4); White Blood Count 20.2 K/mm3 (4.4-11.0)
[2022-09-01 04:40] LABS: Magnesium 2.2 mg/dL (1.6-2.6); Phosphorus 2.9 mg/dL (2.5-4.9)
[2022-09-01 04:42] LABS: ALB/GLOB Ratio 0.8 RATIO (0.9-2.4); AST(SGOT) 18 U/L (15-37); Alanine Aminotransfer ALT/SGPT 29 U/L (13-56); Albumin, Serum 3.1 g/dL (3.2-5.0); Alkaline Phosphatase 81 U/L (45-117); Anion Gap 11 (5-15); BUN 43 mg/dL (7-18); BUN/Creat Ratio 58.7 RATIO (10-20); Calcium,Total 9.4 mg/dL (8.5-10.1); Chloride 101 mmol/L (98-107); Creatinine, Serum 0.73 mg/dL (0.55-1.02); EST Glomerular Filtration Rate 84 mL/min (>60); Est Glom Filt Rate - Afr Amer 102 mL/min (>60); Estimated Creatinine Clearance 60.83 ml/min; Globulin 4.1 g/dL (2.2-4.2); Glucose 114 mg/dL (74-106); Potassium 3.8 mmol/L (3.5-5.1); Protein, Total 7.2 g/dL (6.4-8.2); Sodium Level 140 mmol/L (136-145)
[2022-09-01] MEDS: Na Biphos/Potassium Phosphate PACKET 1 PACKET PO ×3 (05:56→20:30)
[2022-09-01] MEDS: Liothyronine 5 MCG Tablet 25 MCG PO (05:56)
[2022-09-01] MEDS: Levothyroxine 75 MCG Tablet PO (05:56)
--- NOTE | 2022-09-01 06:38 | PN.CC_ITS ---
Assessment & Plan Assessment/Plan (1) Acute exacerbation of chronic obstructive pulmonary disease (COPD): PLAN: Plan RECOMMENDATIONS: 1. Wean supplemental oxygen to maintain saturations at or above 90%. 2. Continue scheduled bronchodilators. 3. Attempt BiPAP breaks during the day. Continue with sleep. 4. Continue diuretics as tolerated by hemodynamics and renal function. 5. Dietary advancement per speech therapy. 6. Mobilize patient as tolerated. 7. Potassium repletion as indicated. IMPRESSIONS: 1. Acute hypoxemic respiratory failure Unclear etiology, but appears to be fluid sensitive. The patient does have known underlying obstructive lung disease and continues to smoke cigarettes daily. Therefore, an exacerbation of her underlying COPD seems most likely. In light of her presenting radiographic findings, underlying pneumonia is a possibility. Her echocardiogram did not reveal any significant abnormalities. Lower extremity Doppler study was negative for DVT. CTA chest showed no evidence for pulmonary embolism. The patient has emphysematous changes and bullae present along with faint groundglass opacities in the right upper lobe. The patient has completed a treatment course of antibiotics. She remains on bronchodilators. Patient appears to be tolerating cessation of IV steroids wel l. The patient appears to be improving from an oxygenation standpoint with ongoing diuresis, which will be continued as tolerated by hemodynamics and renal function. Continue to wean supplemental oxygen to maintain saturations at or above 90%. Encourage incentive spirometer use and mobilize patient as tolerated 2. Encephalopathy Likely metabolic in etiology. I would avoid sedating medications if feasible. The patient's arterial blood gas did not demonstrate evidence of CO2 retention. Although TSH was initially found to be low, free T4 level was within normal limits. Continue supportive measures as noted above. Delirium appears to be improving with cessation of steroids, which patient is tolerating hemodynamically 3. Chronic tobacco dependency/history of obstructive sleep apnea/hypertension/hypothyroidism Complicates care, management, recovery and prognosis. Continue PAP therapy with naps and nightly. Continue home Synthroid regimen. This note was generated with [employer] dictation software. It may contain incorrect words, spelling, and punctuation that were not noted in checking the note before signing. Subjective Subjective Patient did okay overnight. Patient tolerating short breaks off of BiPAP therapy. Patient is reporting thirst, and reportedly is not as confused as previously reported. Patient is not reporting any pain. Objective Data Objective Data Vital Signs: Vital Signs Temp Pulse Resp BP Pulse Ox O2 Del Method O2 Flow Rate 36.6 C 102 H 22 H 127/83 H 93 Bi-pap 5 09/01/22 06:00 09/01/22 06:00 09/01/22 06:00 09/01/22 06:00 09/01/22 06:00 09/01/22 06:00 08/31/22 20:00 FiO2 55 09/01/22 06:00 Oxygen Flow Rate (L/min) 5 Oxygen Delivery Method Bi-pap Weight: 69.989 kg Body Mass Index (BMI) 33.3 Intake & Output: Intake and Output for Last 24 Hours 08/30/22 08/31/22 09/01/22 23:59 23:59 23:59 Intake Total 850 / 850 500 / 500 Output Total 700 / 700 1100 / 1100 0 / 0 Balance 150 / 150 -600 / -600 0 / 0 Lab / Micro Data Attestation: I reviewed the patient's lab results. Result Diagrams: 09/01/22 04:15 09/01/22 04:15 Labs: Laboratory Results - last 24 hr 09/01/22 04:15: Phosphorus 2.9, Magnesium 2.2 09/01/22 04:15: WBC 20.2 H, RBC 4.69, Hgb 12.1, Hct 38.9, MCV 82.9, MCH 25.8 L, MCHC 31.1 L, RDW Std Deviation 42.2, RDW Coeff of Genaro 14.1, Plt Count 344, MPV 10.4, Immature Gran % (Auto) 0.900, Neut % (Auto) 75.9 H, Lymph % (Auto) 14.7 L, [place] % (Auto) 6.5, Eos % (Auto) 1.7, Baso % (Auto) 0.3, Absolute Neuts (auto) 15.3 H, Absolute Lymphs (auto) 2.98, Nucleated RBC % 0 09/01/22 04:15: Sodium 140, Potassium 3.8, Chloride 101, Carbon Dioxide 28.0, Anion Gap 11, BUN 43 H, Creatinine 0.73, Estim Creat Clear Calc 60.83, Est GFR (MDRD) Af Amer 102, Est GFR (MDRD) Non-Af 84, BUN/Creatinine Ratio 58.7 H, Glucose 114 H, Calcium 9.4, Total Bilirubin 0.50, AST 18, ALT 29, Alkaline P hosphatase 81, Total Protein 7.2, Albumin 3.1 L, Globulin 4.1, Albumin/Globulin Ratio 0.8 L Micro: Microbiology 08/23/22 20:45 Mucosa - Nasopharyngeal Respiratory Panel (PCR) - Final 08/23/22 16:30 Nasal Secretion SARS-CoV-2 & FLU Antigen (Rapid) - Final Rhythm Strip Rhythm Strip: Sinus Rhythm Rate: 93 Ectopy: None Physical Exam Const alert and no apparent distress Constitutional Narrative: Oriented to self and place. On BiPAP during my evaluation General Appearance: cooperative Nutritional Appearance: obese HEENT normocephalic and head/scalp atraumatic Eyes PERRL, EOMs intact bilaterally and conjunctivae normal Neck supple General: trachea midline Chest inspection of chest normal Resp no use of accessory muscles Effort and Inspection: tachypneic Auscultation: diminished lung sounds; Negative for rales, rhonchi or wheezes Cardio regular rate, regular rhythm, S1 normal heart sound, S2 normal heart sound and no murmurs GI normal to inspection, nondistended, normoactive bowel sounds Extremity no clubbing, cyanosis or edema General Extremity: amputation; Negative for clubbing or edema Skin no rashes or lesions noted Neuro CN's II-XII intact bilaterally, moves all extremities and no focal motor deficits Psych cooperative and affect normal Mood & Affect: flat affect Charges/Coding Visit Charges Inpatient E&M: 32078 Subs Hosp L3
[2022-09-01] MEDS: Furosemide 40 MG/4 ML Vial IV (06:56)
[2022-09-01] MEDS: Ipratropium/Albuterol Sulfate 3 ML AMPUL.NEB INHALATION ×4 (07:01→19:07)
[2022-09-01] MEDS: Ondansetron 4 MG/2 ML Vial IV (09:22)
[2022-09-01] MEDS: Enoxaparin 40 MG/0.4 ML Syringe SC (10:09)
[2022-09-01] MEDS: guaiFENesin/D-Methorphan TAB.SR.12H 2 TABLET PO ×2 (10:10→20:30)
[2022-09-01] MEDS: Metoprolol Tartrate 25 MG Tablet 12.5 MG PO ×2 (10:10→20:27)
[2022-09-01] MEDS: Triamcinolone Acetonide 0.1% Cream 15 gm 1 APPLIC TOPICAL ×2 (10:11→20:26)
[2022-09-01] MEDS: DULoxetine Hcl 60 MG Capsule PO ×2 (10:11→20:30)
[2022-09-01] MEDS: Clopidogrel Bisulfate 75 MG Tablet PO (10:11)
[2022-09-01] MEDS: CHLORHEXIDINE GLUC 2% CLOTH 1 EACH TOWELETTE TOPICAL (10:12)
[2022-09-01] MEDS: Pregabalin 50 MG Capsule PO (10:14)
[2022-09-01] MEDS: Ensure Clear 120 ML Liquid PO ×2 (14:59→17:45)
--- NOTE | 2022-09-01 16:19 | PCM.PN.HOSP ---
Reason for Visit Reason for Visit: Shortness of breath Subjective Subjective Patient is a 67-year-old white female who presented to the emergency department on 08/23/2022 with shortness of breath. She has a history of COPD and is on home nightly CPAP with a 4 L bleed. She evidently had a 1 month history of worsening shortness of breath above her baseline but significantly worsened on the day of presentation. She indicated she typically uses her albuterol inhaler which helps but on the day of presentation her inhaler did not help. 3 weeks prior to presentation she completed a prednisone taper and 3 days after that she was put on Levaquin which she completed. These did not improve her symptoms. She indicated she was having a nonproductive cough that was occasionally productive of white sputum. She was initially 83% on room air at the time of presentation was placed on supplemental oxygen that needed uptitrated when she dropped into the 70s. She was on BiPAP and admitted to the ICU. Since admission her respiratory status has been fluctuating. Work-up for thromboembolic disease has been negative. But CT did show emphysematous changes along with bullae and faint groundglass opacities in the right upper lobe. She is completed of course of antibiotics and had been on steroids however those were discontinued yesterday secondary to worsening confusion. She has been diuresed intermittently with some success. Overnight she developed some worsening respiratory issues and was placed back on BiPAP with higher oxygen requirements. At the time of my evaluation we have been able to wean her oxygen back to 80% on the BiPAP and she was more comfortable. Pulmonary medicine is diuresing her intermittently. She currently has no complaints other than her fluctuating respiratory status which is slightly worse than it had been prior. Goal today is for ongoing diuresis. Objective Data Objective Data Vital Signs: Vital Signs Temp Pulse Resp BP Pulse Ox O2 Del Method O2 Flow Rate 97.0 F L 97 25 H 112/72 97 Airvo 60 09/01/22 16:00 09/01/22 16:00 09/01/22 16:00 09/01/22 16:00 09/01/22 16:00 09/01/22 16:00 09/01/22 16:00 FiO2 50 09/01/22 16:00 Oxygen Flow Rate (L/min) 60 Oxygen Delivery Method Airvo Weight: 69.989 kg Body Mass Index (BMI) 33.3 Intake & Output: Intake and Output for Last 24 Hours 08/30/22 08/31/22 09/01/22 23:59 23:59 23:59 Intake Total 850 / 850 500 / 500 Output Total 700 / 700 1100 / 1100 300 / 300 Balance 150 / 150 -600 / -600 -300 / -300 Lab / Micro Data Result Diagrams: 09/01/22 04:15 09/01/22 04:15 Labs: Laboratory Results - last 24 hr 09/01/22 04:15: Phosphorus 2.9, Magnesium 2.2 09/01/22 04:15: WBC 20.2 H, RBC 4.69, Hgb 12.1, Hct 38.9, MCV 82.9, MCH 25.8 L, MCHC 31.1 L, RDW Std Deviation 42.2, RDW Coeff of [place]aro 14.1, Plt Count 344, MPV 10.4, Immature Gran % (Auto) 0.900, Neut % (Auto) 75.9 H, Lymph % (Auto) 14.7 L, [place] % (Auto) 6.5, Eos % (Auto) 1.7, Baso % (Auto) 0.3, Absolute Neuts (auto) 15.3 H, Absolute Lymphs (auto) 2.98, Nucleated RBC % 0 09/01/22 04:15: Sodium 140, Potassium 3.8, Chloride 101, Carbon Dioxide 28.0, Anion Gap 11, BUN 43 H, Creatinine 0.73, Estim Creat Clear Calc 60.83, Est GFR (MDRD) Af Amer 102, Est GFR (MDRD) Non-Af 84, BUN/Creatinine Ratio 58.7 H, Glucose 114 H, Calcium 9.4, Total Bilirubin 0.50, AST 18, ALT 29, Alkaline Phosphatase 81, Total Protein 7.2, Albumin 3.1 L, Globulin 4.1, Albumin/Globulin Ratio 0.8 L Micro: Microbiology 08/23/22 20:45 Mucosa - Nasopharyngeal Respiratory Panel (PCR) - Final 08/23/22 16:30 Nasal Secretion SARS-CoV-2 & FLU Antigen (Rapid) - Final Rhythm Strip Rhythm Strip: Sinus Rhythm Rate: 93 Ectopy: None Physical Exam Const alert, oriented x3, no apparent distress and well nourished Constitutional Narrative: Obese, upper middle-aged white female who appears older than stated age sitting up in bed on BiPAP, appears comfortable at this time and nontoxic, no signs of acute respiratory distress currently HEENT head/scalp atraumatic, moist oral mucous membranes and oropharynx normal HEENT Narrative: Mallampati is 2-3, no thrush Head and Scalp: normocephalic Resp no retractions, no use of accessory muscles and clear to auscultation bilaterally Resp Narrative: Diffusely diminished but no adventitious sounds noted, mild tachypnea Auscultation: Negative for rales, rhonchi or wheezes Cardio regular rate, regular rhythm, S1 normal heart sound, S2 normal heart sound, no murmurs, no rub, no gallops and no clicks GI normal to inspection, nondistended, normoactive bowel sounds and soft to palpation Extremity no clubbing, cyanosis or edema Extremity Narrative: 2+ pedal pulses on left, right BKA Neuro oriented x3, CN's II-XII intact bilaterally, moves all extremities, no focal motor deficits and no sensory deficits noted Neuro Narrative: Patient is currently called to assess as patient is on BiPAP but she is able to communicate, generalized weakness is noted Psych affect normal Psych Narrative: Very pleasant, appropriate Assessment & Plan Assessment/Plan (1) Acute respiratory failure with hypoxia: (2) Hypokalemia: (3) Toxic metabolic encephalopathy: PLAN: Plan Acute hypoxic respiratory failure -Etiology is unclear at this time -Infectious work-up has been unremarkable -CTA negative for PE -Respiratory viral panel unremarkable -COVID/flu unremarkable -No peripheral eosinophilia -We will try to obtain a sputum sample if possible as patient did have stenotrophomonas and strep pneumo in May of this year in her sputum -Has COPD with emphysematous changes and bullae along with faint groundglass opacities in the right upper lobe -Completed antibiotic course -Steroids discontinued secondary to confusion -Echocardiogram done on 08/29/2019 showed normal EF at 60% with no wall motion abnormality and a negative bubble study -Continue as needed diuresis -If does not improve may need further autoimmune work-up or possible repeat CT of chest -Pulmonary medicine is following-appreciate input Leukocytosis -Suspect related to steroid use -Patient is currently off steroids and will continue to monitor -Repeat CBC in a.m. 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
[2022-09-01] MEDS: Montelukast 10 MG Tablet PO (20:27)
[2022-09-01] MEDS: Atorvastatin Calcium 80 MG Tablet PO (20:27)
[2022-09-01] MEDS: Topiramate 50 MG Tablet PO (20:27)
[2022-09-02] VITALS (34 sets, daily range): BP systolic 91–152; BP diastolic 56–95; PULSE 85–106; RESP 14–30; TEMP 36.1–36.8; O2SAT 90–100; BMI 33.2
--- NOTE | 2022-09-02 02:12 | CPS ---
RN took patient off bipap and onto airvo for a break. Patient desat to the 70's. Was put back on bipap and fio2 increased to 65%, will wean once patient recovers.
[2022-09-02 04:46] LABS: Absolute Lymphocyte Count 2.69 X10^3/uL (0.83-4.51); Absolute Neutrophil Count 14.2 X10^3/uL (2.0-7.7); Basophil# 0.05 X10^3/uL; Basophil% 0.3 % (0-1); Eosinophil# 0.41 X10^3/uL; Eosinophils% 2.1 % (0-5); Hematocrit 40.1 % (37-47); Hemoglobin 12.5 g/dL (12.0-15.0); Lymphocyte # 2.69 X10^3/ul (0.83-4.51); Lymphocyte % 14.1 % (19-41); Mean Corp Hgb Conc 31.2 g/dL (32-36); Mean Corpuscular Hgb 25.9 pg (27.0-32.0); Mean Corpuscular Volume 83.2 fL (81-99); Mean Platelet Vol. 10.7 fl (6.2-12.0); Monocyte% 8.4 % (0-10); NRBC Flagged by Analyzer 0 % (0-5); Neutrophil % 74.2 % (47-70); POSITIVE DIFFERENTIAL YES; Platelet Count 325 K/mm3 (150-450); RBC Distribution Width SD 42.2 fl (35.1-43.9); Red Blood Count 4.82 M/mm3 (4.2-5.4); White Blood Count 19.1 K/mm3 (4.4-11.0)
[2022-09-02 04:48] LABS: Differential Indicated SCAN CRITERIA MET
[2022-09-02 05:01] LABS: Differential Comment SCANNED
[2022-09-02 05:29] LABS: Anion Gap 6 (5-15); BUN 38 mg/dL (7-18); BUN/Creat Ratio 39.4 RATIO (10-20); Chloride 97 mmol/L (98-107); Creatinine, Serum 0.96 mg/dL (0.55-1.02); EST Glomerular Filtration Rate 61 mL/min (>60); Est Glom Filt Rate - Afr Amer 74 mL/min (>60); Estimated Creatinine Clearance 62.83 ml/min; Glucose 176 mg/dL (74-106); Magnesium 1.9 mg/dL (1.6-2.6); Phosphorus 3.1 mg/dL (2.5-4.9); Sodium Level 130 mmol/L (136-145)
[2022-09-02] MEDS: Levothyroxine 75 MCG Tablet PO (05:31)
[2022-09-02] MEDS: Liothyronine 5 MCG Tablet 25 MCG PO (05:31)
[2022-09-02] MEDS: Ipratropium/Albuterol Sulfate 3 ML AMPUL.NEB INHALATION ×4 (06:42→19:05)
--- NOTE | 2022-09-02 07:12 | PN.CC_ITS ---
Assessment & Plan Assessment/Plan (1) Acute exacerbation of chronic obstructive pulmonary disease (COPD): PLAN: Plan RECOMMENDATIONS: 1. Wean supplemental oxygen to maintain saturations at or above 90%. 2. Continue scheduled bronchodilators. 3. Attempt BiPAP breaks during the day. Continue with sleep. 4. Continue diuretics as tolerated by hemodynamics and renal function. 5. Dietary advancement per speech therapy. 6. Mobilize patient as tolerated. 7. Potassium repletion as indicated. IMPRESSIONS: 1. Acute hypoxemic respiratory failure Unclear etiology, but appears to be fluid sensitive. The patient does have known underlying obstructive lung disease and continues to smoke cigarettes daily. Therefore, an exacerbation of her underlying COPD seems most likely. In light of her presenting radiographic findings, underlying pneumonia is a possibility. Her echocardiogram did not reveal any significant abnormalities. Lower extremity Doppler study was negative for DVT. CTA chest showed no evidence for pulmonary embolism. The patient has emphysematous changes and bullae present along with faint groundglass opacities in the right upper lobe. The patient has completed a treatment course of antibiotics. She remains on bronchodilators. Patient appears to be tolerating cessation of IV steroids wel l. The patient appears to be improving from an oxygenation standpoint with ongoing diuresis, which will be continued as tolerated by hemodynamics and renal function. We will continue to dose with Lasix as needed. Continue to wean supplemental oxygen to maintain saturations at or above 90%. Encourage incentive spirometer use and mobilize patient as tolerated 2. Encephalopathy Likely metabolic in etiology. I would avoid sedating medications if feasible. The patient's arterial blood gas did not demonstrate evidence of CO2 retention. Although TSH was initially found to be low, free T4 level was within normal limits. Continue supportive measures as noted above. Delirium appears to be improving with cessation of steroids, which patient is tolerating hemodyn amically 3. Chronic tobacco dependency/history of obstructive sleep apnea/hypertens ion/hypothyroidism Complicates care, management, recovery and prognosis. Continue PAP therapy with naps and nightly. Continue home Synthroid regimen. This note was generated with [employer] dictation software. It may contain incorrect words, spelling, and punctuation that were not noted in checking the note before signing. Subjective Subjective Patient did okay over the last 24 hours. Patient was able to be transitioned to Airvo and have some p.o. nutrition. Patient did have desaturation overnight requiring BiPAP rescue as high as 60% FiO2. However, patient is back down to 45% FiO2 this morning. No pains reported. Objective Data Objective Data Vital Signs: Vital Signs Temp Pulse Resp BP Pulse Ox O2 Del Method O2 Flow Rate 36.6 C 100 19 H 116/71 98 Bi-pap 60 09/02/22 06:00 09/02/22 07:00 09/02/22 07:00 09/02/22 07:00 09/02/22 07:00 09/02/22 07:00 09/01/22 21:00 FiO2 45 09/02/22 07:00 Oxygen Flow Rate (L/min) 60 Oxygen Delivery Method Bi-pap Weight: 69.899 kg Body Mass Index (BMI) 33.2 Intake & Output: Intake and Output for Last 24 Hours 08/31/22 09/01/22 09/02/22 23:59 23:59 23:59 Intake Total 500 / 500 Output Total 1100 / 1100 425 / 675 250 / 250 Balance -600 / -600 -425 / -675 -250 / -250 Lab / Micro Data Attestation: I reviewed the patient's lab results. Result Diagrams: 09/02/22 04:38 09/02/22 04:38 Labs: Laboratory Results - last 24 hr 09/02/22 04:38: Sodium 130 L, Potassium 4.0, Chloride 97 L, Carbon Dioxide 27.0, Anion Gap 6, BUN 38 H, Creatinine 0.96, Estim Creat Clear Calc 62.83, Est GFR (MDRD) Af Amer 74, Est GFR (MDRD) Non-Af 61, BUN/Creatinine Ratio 39.4 H, Glucose 176 H, Calcium 9.0, Phosphorus 3.1, Magnesium 1.9 09/02/22 04:38: WBC 19.1 H, RBC 4.82, Hgb 12.5, Hct 40.1, MCV 83.2, MCH 25.9 L, MCHC 31.2 L, RDW Std Deviation 42.2, RDW Coeff of Genaro 14.0, Plt Count 325, MPV 1 0.7, Immature Gran % (Auto) 0.900, Neut % (Auto) 74.2 H, Lymph % (Auto) 14.1 L, Storey % (Auto) 8.4, Eos % (Auto) 2.1, Baso % (Auto) 0.3, Absolute Neuts (auto) 14.2 H, Absolute Lymphs (auto) 2.69, Nucleated RBC % 0, Differential Comment SCANNED, Diff Path Review May foll Micro: Microbiology 08/23/22 20:45 Mucosa - Nasopharyngeal Respiratory Panel (PCR) - Final 08/23/22 16:30 Nasal Secretion SARS-CoV-2 & FLU Antigen (Rapid) - Final Rhythm Strip Rhythm Strip: Sinus Tach Rate: 102 Ectopy: None Physical Exam Const alert and no apparent distress Constitutional Narrative: Oriented to self and place. On BiPAP during my evaluation General Appearance: cooperative Nutritional Appearance: obese HEENT normocephalic and head/scalp atraumatic Eyes PERRL, EOMs intact bilaterally and conjunctivae normal Neck supple General: trachea midline Chest inspection of chest normal Resp no use of accessory muscles Auscultation: diminished lung sounds; Negative for rales, rhonchi or wheezes Cardio regular rate, regular rhythm, S1 normal heart sound, S2 normal heart sound and no murmurs GI normal to inspection, nondistended, normoactive bowel sounds Extremity no clubbing, cyanosis or edema General Extremity: amputation; Negative for clubbing or edema Skin no rashes or lesions noted Neuro CN's II-XII intact bilaterally, moves all extremities and no focal motor deficits Psych cooperative and affect normal Mood & Affect: flat affect Charges/Coding Visit Charges Inpatient E&M: 50733 Subs Hosp L3
[2022-09-02] MEDS: Furosemide 40 MG/4 ML Vial IV (07:56)
[2022-09-02] MEDS: 0.9% Saline Lock 10 ML Syringe IV (07:57)
[2022-09-02 08:49] LABS: Rheumatoid Factor < 10.0 IU/mL (<15)
[2022-09-02] MEDS: Ensure Clear 120 ML Liquid PO ×2 (10:08→13:53)
[2022-09-02] MEDS: DiphenhydrAMINE 25 MG Capsule PO ×2 (10:08→20:06)
[2022-09-02] MEDS: CHLORHEXIDINE GLUC 2% CLOTH 1 EACH TOWELETTE TOPICAL (10:09)
[2022-09-02] MEDS: Metoprolol Tartrate 25 MG Tablet 12.5 MG PO ×2 (10:09→20:39)
[2022-09-02] MEDS: Enoxaparin 40 MG/0.4 ML Syringe SC (10:09)
[2022-09-02] MEDS: Clopidogrel Bisulfate 75 MG Tablet PO (10:10)
[2022-09-02] MEDS: DULoxetine Hcl 60 MG Capsule PO ×2 (10:10→20:40)
[2022-09-02] MEDS: guaiFENesin/D-Methorphan TAB.SR.12H 2 TABLET PO ×2 (10:10→20:40)
[2022-09-02] MEDS: Pregabalin 50 MG Capsule PO (10:13)
--- NOTE | 2022-09-02 11:58 | PN.HOSP_ITS ---
Reason for Visit Reason for Visit: Shortness of breath Subjective Subjective No significant issues overnight however patient is still on quite a bit of oxygen. She was able to tolerate Airvo yesterday. She still on a clear liquid diet and speech therapy is following. She is complaining of some itching that is everywhere but no rashes identified. She does want to eat however I did discuss with her we need her to have a more stable respiratory status before we can pursue that. She seemed understand. Objective Data Objective Data Vital Signs: Vital Signs Temp Pulse Resp BP Pulse Ox O2 Del Method O2 Flow Rate 98.0 F 86 25 H 122/73 H 100 Bi-pap 60 09/02/22 08:00 09/02/22 11:36 09/02/22 11:36 09/02/22 11:00 09/02/22 11:36 09/02/22 11:00 09/01/22 21:00 FiO2 45 09/02/22 11:36 Oxygen Flow Rate (L/min) 60 Oxygen Delivery Method Bi-pap Weight: 69.899 kg Body Mass Index (BMI) 33.2 Intake & Output: Intake and Output for Last 24 Hours 08/31/22 09/01/22 09/02/22 23:59 23:59 23:59 Intake Total 500 / 500 Output Total 1100 / 1100 425 / 675 250 / 250 Balance -600 / -600 -425 / -675 -250 / -250 Lab / Micro Data Result Diagrams: 09/02/22 04:38 09/02/22 04:38 Labs: Laboratory Results - last 24 hr 09/02/22 04:38: Sodium 130 L, Potassium 4.0, Chloride 97 L, Carbon Dioxide 27.0, Anion Gap 6, BUN 38 H, Creatinine 0.96, Estim Creat Clear Calc 62.83, Est GFR (MDRD) Af Amer 74, Est GFR (MDRD) Non-Af 61, BUN/Creatinine Ratio 39.4 H, Glucose 176 H, Calcium 9.0, Phosphorus 3.1, Magnesium 1.9 09/02/22 04:38: WBC 19.1 H, RBC 4.82, Hgb 12.5, Hct 40.1, MCV 83.2, MCH 25.9 L, MCHC 31.2 L, RDW Std Deviation 42.2, RDW Coeff of Genaro 14.0, Plt Count 325, MPV 10.7, Immature Gran % (Auto) 0.900, Neut % (Auto) 74.2 H, Lymph % (Auto) 14.1 L, [place] % (Auto) 8.4, Eos % (Auto) 2.1, Baso % (Auto) 0.3, Absolute Neuts (auto) 14.2 H, Absolute Lymphs (auto) 2.69, Nucleated RBC % 0, Differential Comment SCANNED, Diff Path Review August09/02/22 08:10: Rheumatoid Factor < 10.0 Micro: Microbiology 08/23/22 20:45 Mucosa - Nasopharyngeal Respiratory Panel (PCR) - Final 08/23/22 16:30 Nasal Secretion SARS-CoV-2 & FLU Antigen (Rapid) - Final Rhythm Strip Rhythm Strip: Sinus Tach Rate: 102 Ectopy: None Physical Exam Const alert, oriented x3, no apparent distress and well nourished Constitutional Narrative: Obese, upper middle-aged white female who appears older than stated, lying in right side-lying in bed on BiPAP, appears comfortable at this time and nontoxic, breathing appears comfortable at this time HEENT head/scalp atraumatic, moist oral mucous membranes and oropharynx normal HEENT Narrative: No thrush, Mallampati 3 Resp normal respiratory effort, no retractions, no use of accessory muscles and clear to auscultation bilaterally Resp Narrative: Diffusely diminished but no adventitious sounds noted, breathing appears comfortable at this time Auscultation: Negative for rales, rhonchi or wheezes Cardio regular rate, regular rhythm, S1 normal heart sound, S2 normal heart sound, no murmurs, no rub, no gallops and no clicks GI normal to inspection, nondistended, normoactive bowel sounds and soft to palpation Extremity no clubbing, cyanosis or edema Extremity Narrative: 2+ pedal pulses on left, right BKA Neuro oriented x3, moves all extremities and no focal motor deficits Neuro Narrative: Patient follows all commands without difficulty, generalized weakness noted Speech: speech normal Assessment & Plan Assessment/Plan (1) Acute respiratory failure with hypoxia: (2) Hypokalemia: (3) Toxic metabolic encephalopathy: (4) Hyponatremia: PLAN: Plan Acute hypoxic respiratory failure -Etiology is unclear at this time -Infectious work-up has been unremarkable -CTA negative for PE -Respiratory viral panel unremarkable -COVID/flu unremarkable -No peripheral eosinophilia -We will try to obtain a sputum sample if possible as patient did have stenotrophomonas and strep pneumo in May of this year in her sputum -Has COPD with emphysematous changes and bullae along with faint groundglass opacities in the right upper lobe -Autoimmune work-up initiated since she is not dramatically improving -Completed antibiotic course -Steroids discontinued secondary to confusion on 08/31/2022--> the lack of steroid use may be contributing to her slow recovery -Echocardiogram done on 08/29/2019 showed normal EF at 60% with no wall motion abnormality and a negative bubble study -Continue as needed diuresis -Repeat CT of chest without contrast -Pulmonary medicine is following-appreciate input Leukocytosis -Suspect related to steroid use -Slight improvement since yesterday -Repeat CBC in a.m. Hyponatremia -This is new -May be related to diuretics -Large change from yesterday as her sodium was 140 yesterday 130 today -Repeat lab in a.m. and if it continues to be a problem may need to pursue further work-up Metabolic encephalopathy -Appears to be improving -Will continue to avoid sedating medications -Does not appear to be mediated by hypercapnia -Continue to monitor clinically History of RAUL -Continue PAP therapy with naps and nightly Hypothyroidism -Initial TSH was abnormal but free T4 was normal likely indicating euthyroid sick syndrome -Continue home Synthroid COPD -See above -Last FEV1 was 68% predicted CAD/HTN/HPL -Continue home atorvastatin -Continue home Plavix -Continue home metoprolol Anxiety/depression -Continue home Topamax -Continue home Cymbalta -Continue home BuSpar -Continue home lorazepam DVT prophylaxis -Continue enoxaparin 40 mg daily CODE STATUS -DNR CCA with no intubation Charges/Coding Visit Charges Inpatient E&M: 55364 Subs Hosp L2
--- NOTE | 2022-09-02 12:07 | CT_ITS ---
STUDY: CT CHEST WITHOUT CONTRAST REASON FOR EXAM: Female, 67 years old. Hypoxia RADIATION DOSAGE (If Supplied By Facility): CTDIvol = ( 15.58 ) mGy, DLP = ( 556.68 ) mGycm TECHNIQUE: Transaxial imaging was performed without the administration of intravenous contrast material. Multiplanar coronal and sagittal images were reformatted. Individualized dose optimization techniques were used for this CT. COMPARISON: Comparison is made with prior study August 24, 2022. FINDINGS: CHEST Emphysematous changes with centrilobular emphysema and the upper lobes. Minimal increased linear markings at the lung bases slightly more prominent on the left side suggestive of a atelectasis and/or scarring. There is no demonstrated pleural abnormality. There are calcifications of the coronary arteries. There are multiple small lymph nodes within the mediastinum, which are normal in size and morphology most compatible with reactive lymph hyperplasia. Normal hilar regions. Normal unenhanced pulmonary arteries. There is atherosclerotic calcification of the aortic arch with tortuosity and elongation of the aortic arch and descending thoracic aorta. Once again, the patient is status post interventricular sclerotic fixation of the visualized thoracic and lumbar spines. Stable severe compression of the T8 vertebrae. There is no demonstrated abnormality of the visualized upper abdomen. CT/Chest without Contrast IMPRESSION: Mild degree of scarring and/or atelectasis at the lung bases likely more prominent on the left side with a superimposed emphysema and hyperinflation. Electronically Signed: Luis Antonio Mota MD at 14:12 EDT ,
--- NOTE | 2022-09-02 19:05 | CPS ---
Decreased O2 to 5 lpm
[2022-09-02] MEDS: Triamcinolone Acetonide 0.1% Cream 15 gm 1 APPLIC TOPICAL (20:40)
[2022-09-02] MEDS: Montelukast 10 MG Tablet PO (20:40)
[2022-09-02] MEDS: Atorvastatin Calcium 80 MG Tablet PO (20:40)
[2022-09-02] MEDS: Topiramate 50 MG Tablet PO (20:40)
[2022-09-03] VITALS (33 sets, daily range): BP systolic 93–152; BP diastolic 48–133; PULSE 78–99; RESP 14–27; TEMP 35.9–36.6; O2SAT 91–100; BMI 33.0
[2022-09-03 03:52] LABS: Absolute Lymphocyte Count 2.99 X10^3/uL (0.83-4.51); Absolute Neutrophil Count 12.3 X10^3/uL (2.0-7.7); Basophil# 0.05 X10^3/uL; Basophil% 0.3 % (0-1); Eosinophil# 0.43 X10^3/uL; Eosinophils% 2.5 % (0-5); Hematocrit 36.2 % (37-47); Hemoglobin 11.3 g/dL (12.0-15.0); Lymphocyte # 2.99 X10^3/ul (0.83-4.51); Lymphocyte % 17.2 % (19-41); Mean Corp Hgb Conc 31.2 g/dL (32-36); Mean Corpuscular Hgb 25.6 pg (27.0-32.0); Mean Corpuscular Volume 82.1 fL (81-99); Mean Platelet Vol. 10.7 fl (6.2-12.0); Monocyte# 1.52 X10^3/uL; Monocyte% 8.7 % (0-10); NRBC Flagged by Analyzer 0 % (0-5); Neutrophil # 12.28 X10^3/uL (2.7-7.7); Neutrophil % 70.6 % (47-70); POSITIVE DIFFERENTIAL YES; Platelet Count 304 K/mm3 (150-450); RBC Distribution Width CV 13.9 % (11.6-14.6); RBC Distribution Width SD 41.1 fl (35.1-43.9); Red Blood Count 4.41 M/mm3 (4.2-5.4); White Blood Count 17.4 K/mm3 (4.4-11.0)
[2022-09-03 03:59] LABS: Differential Indicated SCAN CRITERIA MET
[2022-09-03 04:17] LABS: ALB/GLOB Ratio 0.7 RATIO (0.9-2.4); AST(SGOT) 15 U/L (15-37); Alanine Aminotransfer ALT/SGPT 21 U/L (13-56); Albumin, Serum 2.8 g/dL (3.2-5.0); Alkaline Phosphatase 78 U/L (45-117); Anion Gap 11 (5-15); BUN 33 mg/dL (7-18); BUN/Creat Ratio 28.2 RATIO (10-20); Calcium,Total 9.5 mg/dL (8.5-10.1); Chloride 93 mmol/L (98-107); Creatinine, Serum 1.17 mg/dL (0.55-1.02); EST Glomerular Filtration Rate 49 mL/min (>60); Est Glom Filt Rate - Afr Amer 59 mL/min (>60); Estimated Creatinine Clearance 51.49 ml/min; Globulin 4.2 g/dL (2.2-4.2); Glucose 188 mg/dL (74-106); Magnesium 1.7 mg/dL (1.6-2.6); Potassium 2.8 mmol/L (3.5-5.1); Sodium Level 135 mmol/L (136-145)
[2022-09-03 04:57] LABS: Differential Comment SCANNED
[2022-09-03] MEDS: Liothyronine 5 MCG Tablet 25 MCG PO (05:14)
[2022-09-03] MEDS: Levothyroxine 75 MCG Tablet PO (05:15)
[2022-09-03] MEDS: Ipratropium/Albuterol Sulfate 3 ML AMPUL.NEB INHALATION ×4 (06:59→19:59)
--- NOTE | 2022-09-03 07:08 | PCM.PN.INT ---
Assessment & Plan Assessment/Plan (1) Acute exacerbation of chronic obstructive pulmonary disease (COPD): PLAN: Plan RECOMMENDATIONS: 1. Wean supplemental oxygen to maintain saturations at or above 90%. 2. Continue scheduled bronchodilators. 3. Continue BiPAP breaks during the day. Continue with sleep. 4. Continue diuretics as tolerated by hemodynamics and renal function. 5. Dietary advancement per speech therapy. 6. Mobilize patient as tolerated. 7. Potassium repletion as indicated. 8. Okay to transfer from the intensive care unit from my perspective IMPRESSIONS: 1. Acute hypoxemic respiratory failure Unclear etiology, but appears to be fluid sensitive. The patient does have known underlying obstructive lung disease and continues to smoke cigarettes daily. Therefore, an exacerbation of her underlying COPD seems most likely. In light of her presenting radiographic findings, underlying pneumonia is a possibility. Her echocardiogram did not reveal any significant abnormalities. Lower extremity Doppler study was negative for DVT. CTA chest showed no evidence for pulmonary embolism. The patient has emphysematous changes and bullae present along with faint groundglass opacities in the right upper lobe. The patient has completed a treatment course of antibiotics. She remains on bronchodilators. Patient appears to be tolerating cessation of IV steroids okay, but this is likely leading to protracted recovery. The patient appears to be improving from an oxygenation standpoint with ongoing diuresis, which will be continued as tolerated by hemodynamics and renal function. We will continue to dose with Lasix as needed. Continue to wean supplemental oxygen to maintain saturations at or above 90%. Encourage incentive spirometer use and mobilize patient as tolerated 2. Encephalopathy Likely metabolic in etiology. I would avoid sedating medications if feasible. The patient's arterial blood gas did not demonstrate evidence of CO2 retention. Although TSH was initially found to be low, free T4 level was within normal limits. Continue supportive measures as noted above. Delirium appears to be improving with cessation of steroids, which patient is tolerating from a respiratory standpoint 3. Chronic tobacco dependency/history of obstructive sleep apnea/hypertension/hypothyroidism Complicates care, management, recovery and prognosis. Continue PAP therapy with naps and nightly. Continue home Synthroid regimen. This note was generated with [employer] software. It may contain incorrect words, spelling, and punctuation that were not noted in checking the note before signing. Subjective Subjective Patient did well overnight. Patient continues to request the BiPAP intermittently secondary to comfort, but tolerating nasal cannula during breaks. Patient has been able to take increased p.o. intake over the last 24 hours. Patient with no complaints this morning. Objective Data Objective Data Vital Signs: Vital Signs Temp Pulse Resp BP Pulse Ox O2 Del Method O2 Flow Rate 36.6 C 95 24 H 129/88 H 95 Bi-pap 5 09/03/22 00:00 09/03/22 07:00 09/03/22 07:00 09/03/22 06:00 09/03/22 07:00 09/03/22 07:00 09/03/22 01:25 FiO2 40 09/03/22 07:00 Oxygen Flow Rate (L/min) 5 Oxygen Delivery Method Bi-pap Weight: 69.49 kg Body Mass Index (BMI) 33.0 Intake & Output: Intake and Output for Last 24 Hours 09/01/22 09/02/22 09/03/22 23:59 23:59 23:59 Intake Total 240 / 240 Output Total 425 / 675 900 / 900 0 / 0 Balance -425 / -675 -660 / -660 0 / 0 Lab / Micro Data Attestation: I reviewed the patient's lab results. Result Diagrams: 09/03/22 03:40 09/03/22 03:40 Labs: Laboratory Results - last 24 hr 09/02/22 08:10: Rheumatoid Factor < 10.0 09/03/22 03:40: Sodium 135 L, Potassium 2.8 L, Chloride 93 L, Carbon Dioxide 31.0, Anion Gap 11, BUN 33 H, Creatinine 1.17 H, Estim Creat Clear Calc 51.49, Est GFR (MDRD) Af Amer 59 L, Est GFR (MDRD) Non-Af 49 L, BUN/Creatinine Ratio 28.2 H, Glucose 188 H, Calcium 9.5, Phosphorus 3.0, Magnesium 1.7, Total Bilirubin 0.30, AST 15, ALT 21, Alkaline Phosphatase 78, Total Protein 7.0, Albumin 2.8 L, Globulin 4.2, Albumin/Globulin Ratio 0.7 L 09/03/22 03:40: WBC 17.4 H, RBC 4.41, Hgb 11.3 L, Hct 36.2 L, MCV 82.1, MCH 25.6 L, MCHC 31.2 L, RDW Std Deviation 41.1, RDW Coeff of Genaro 13.9, Plt Count 304, MPV 10.7, Immature Gran % (Auto) 0.700, Neut % (Auto) 70.6 H, Lymph % (Auto) 17.2 L, [place]eller % (Auto) 8.7, Eos % (Auto) 2.5, Baso % (Auto) 0.3, Absolute Neuts (auto) 12.3 H, Absolute Lymphs (auto) 2.99, Nucleated RBC % 0, Differential Comment SCANNED, Diff Path Review August Micro: Microbiology 08/23/22 20:45 Mucosa - Nasopharyngeal Respiratory Panel (PCR) - Final 08/23/22 16:30 Nasal Secretion SARS-CoV-2 & FLU Antigen (Rapid) - Final Radiography Diagnostic Testing: Radiology Impression Chest CT 09/02/22 12:07 IMPRESSION: Mild degree of scarring and/or atelectasis at the lung bases likely more prominent on the left side with a superimposed emphysema and hyperinflation. Electronically Signed: Luis Antonio Mota MD at 14:12 EDT , Rhythm Strip Rhythm Strip: Sinus Rhythm Rate: 90 Ectopy: None Physical Exam Const alert and no apparent distress Constitutional Narrative: Oriented to self and place. On BiPAP during my evaluation General Appearance: cooperative Nutritional Appearance: obese HEENT normocephalic and head/scalp atraumatic Eyes PERRL, EOMs intact bilaterally and conjunctivae normal Neck supple General: trachea midline Chest inspection of chest normal Resp no use of accessory muscles Auscultation: diminished lung sounds; Negative for rales, rhonchi or wheezes Cardio regular rate, regular rhythm, S1 normal heart sound, S2 normal heart sound and no murmurs GI normal to inspection, nondistended, normoactive bowel sounds Extremity no clubbing, cyanosis or edema General Extremity: amputation; Negative for clubbing or edema Skin no rashes or lesions noted Neuro CN's II-XII intact bilaterally, moves all extremities and no focal motor deficits Psych cooperative and affect normal Charges/Coding Visit Charges Inpatient E&M: 29314 Subs Hosp L2
[2022-09-03] MEDS: Potassium Chloride 10mEq/100mL 10 MEQ/100 ML IV.SOLN. 100 MEQ IV BOLUS (07:19)
[2022-09-03] MEDS: Potassium Chloride Oral Tablet 20 MEQ 40 MEQ PO ×2 (07:19→11:15)
[2022-09-03] MEDS: Acetaminophen 325 MG Tablet 650 MG PO (09:22)
[2022-09-03] MEDS: guaiFENesin/D-Methorphan TAB.SR.12H 2 TABLET PO ×2 (09:22→22:03)
[2022-09-03] MEDS: Triamcinolone Acetonide 0.1% Cream 15 gm 1 APPLIC TOPICAL ×2 (09:23→22:04)
[2022-09-03] MEDS: Metoprolol Tartrate 25 MG Tablet 12.5 MG PO ×2 (09:23→22:06)
[2022-09-03] MEDS: Enoxaparin 40 MG/0.4 ML Syringe SC (09:23)
[2022-09-03] MEDS: DULoxetine Hcl 60 MG Capsule PO ×2 (09:23→22:03)
[2022-09-03] MEDS: Clopidogrel Bisulfate 75 MG Tablet PO (09:24)
[2022-09-03] MEDS: Pregabalin 50 MG Capsule PO (09:26)
[2022-09-03] MEDS: Famotidine 20 MG Tablet PO (09:26)
[2022-09-03] MEDS: Furosemide 40 MG/4 ML Vial IV (09:26)
[2022-09-03] MEDS: CHLORHEXIDINE GLUC 2% CLOTH 1 EACH TOWELETTE TOPICAL (09:27)
[2022-09-03 14:10] LABS: Anti-Centromere B Ab <0.2 AI (0.0-0.9); Anti-Chromatin <0.2 AI (0.0-0.9); Anti-Jo <0.2 AI (0.0-0.9); Anti-Scleroderma-70 AB <0.2 AI (0.0-0.9); Anti-dsDNA Ab <1 IU/mL (0-9); RNP Ab <0.2 AI (0.0-0.9); SJOGREN'S Anti-SS-A test < 0.2 AI (0.0-0.9); SJOGREN'S Anti-SS-B test < 0.2 AI (0.0-0.9); Smith Ab <0.2 AI (0.0-0.9)
--- NOTE | 2022-09-03 14:12 | PCM.PN.HOSP ---
Reason for Visit Reason for Visit: Shortness of breath Subjective Subjective States she is feeling better overall. Is currently on nasal cannula and eating a regular breakfast. She seems pleased about this. Itching has resolved. No specific complaints at this time. Objective Data Objective Data Vital Signs: Vital Signs Temp Pulse Resp BP Pulse Ox O2 Del Method O2 Flow Rate 96.6 F L 82 24 H 103/91 H 96 Nasal Cannula 5 09/03/22 08:00 09/03/22 11:00 09/03/22 11:00 09/03/22 11:00 09/03/22 11:00 09/03/22 11:00 09/03/22 11:00 FiO2 40 09/03/22 08:30 Oxygen Flow Rate (L/min) 5 Oxygen Delivery Method Nasal Cannula Weight: 69.49 kg Body Mass Index (BMI) 33.0 Intake & Output: Intake and Output for Last 24 Hours 09/01/22 09/02/22 09/03/22 23:59 23:59 23:59 Intake Total 240 / 240 100.00 / 100.00 Output Total 425 / 675 900 / 900 0 / 0 Balance -425 / -675 -660 / -660 100.00 / 100.00 Lab / Micro Data Result Diagrams: 09/03/22 03:40 09/03/22 03:40 Labs: Laboratory Results - last 24 hr 09/02/22 08:10: KAILEE-1 Antibody <0.2, SS-A/Ro IgG Antibody < 0.2, SS-B/La IgG Antibody < 0.2, Sm (Shaw) Antibody <0.2, NURSE'S AIDES TEACHER Antibody <0.2, Scl-70 Scleroderma Ab <0.2, Double Strand DNA Ab <1, Centromere B Antibody <0.2 09/03/22 03:40: Sodium 135 L, Potassium 2.8 L, Chloride 93 L, Carbon Dioxide 31.0, Anion Gap 11, BUN 33 H, Creatinine 1.17 H, Estim Creat Clear Calc 51.49, Est GFR (MDRD) Af Amer 59 L, Est GFR (MDRD) Non-Af 49 L, BUN/Creatinine Ratio 28.2 H, Glucose 188 H, Calcium 9.5, Phosphorus 3.0, Magnesium 1.7, Total Bilirubin 0.30, AST 15, ALT 21, Alkaline Phosphatase 78, Total Protein 7.0, Albumin 2.8 L, Globulin 4.2, Albumin/Globulin Ratio 0.7 L 09/03/22 03:40: WBC 17.4 H, RBC 4.41, Hgb 11.3 L, Hct 36.2 L, MCV 82.1, MCH 25.6 L, MCHC 31.2 L, RDW Std Deviation 41.1, RDW Coeff of Genaro 13.9, Plt Count 304, MPV 10.7, Immature Gran % (Auto) 0.700, Neut % (Auto) 70.6 H, Lymph % (Auto) 17.2 L, [place] % (Auto) 8.7, Eos % (Auto) 2.5, Baso % (Auto) 0.3, Absolute Neuts (auto) 12.3 H, Absolute Lymphs (auto) 2.99, Nucleated RBC % 0, Differential Comment SCANNED, Diff Path Review August Micro: Microbiology 08/23/22 20:45 Mucosa - Nasopharyngeal Respiratory Panel (PCR) - Final 08/23/22 16:30 Nasal Secretion SARS-CoV-2 & FLU Antigen (Rapid) - Final Radiography Diagnostic Testing: Radiology Impression Chest CT 09/02/22 12:07 IMPRESSION: Mild degree of scarring and/or atelectasis at the lung bases likely more prominent on the left side with a superimposed emphysema and hyperinflation. Electronically Signed: Luis Antonio Mota MD at 14:12 EDT Reading Location ID and State: [address] [place] [address] , Service support , Rhythm Strip Rhythm Strip: Sinus Rhythm Rate: 90 Ectopy: None Physical Exam Const alert, oriented x3, no apparent distress and well nourished Constitutional Narrative: Obese, upper middle-aged, white female, appears older than stated age, sitting up in bed on 5 L nasal cannula, eating breakfast and watching television, appears comfortable with no signs of respiratory distress HEENT head/scalp atraumatic and moist oral mucous membranes HEENT Narrative: No thrush, Mallampati 2-3, dentition is fair Head and Scalp: normocephalic Resp normal respiratory effort, no retractions, no use of accessory muscles and No clear to auscultation bilaterally Resp Narrative: Diminished with scattered end expiratory wheeze Auscultation: wheezes; Negative for rales or rhonchi Cardio regular rate, regular rhythm, S1 normal heart sound, S2 normal heart sound, no murmurs, no rub, no gallops and no clicks GI normal to inspection, nondistended, normoactive bowel sounds and soft to palpation Extremity no clubbing, cyanosis or edema Extremity Narrative: Pedal pulses are 2+ on the left, BKA on the right Neuro oriented x3, moves all extremities and no focal motor deficits Speech: speech normal Psych affect normal Psych Narrative: More interactive Assessment & Plan Assessment/Plan (1) Acute respiratory failure with hypoxia: (2) Hypokalemia: (3) Toxic metabolic encephalopathy: (4) Hyponatremia: PLAN: Plan Acute hypoxic respiratory failure -Etiology is unclear at this time -Infectious work-up has been unremarkable -CTA negative for PE -Respiratory viral panel unremarkable -COVID/flu unremarkable -No peripheral eosinophilia -Has COPD with emphysematous changes and bullae along with faint groundglass opacities in the right upper lobe -And repeat CT from yesterday actually shows overall improvement -Autoimmune work-up initiated since she is not dramatically improving--> results are still pending -I really think that her decompensation intermittently is related to anxiety -Will try Roxanol 2.5 mg every 6 hours as needed for increased work of breathing -Completed antibiotic course -Steroids discontinued secondary to confusion on 08/31/2022--> the lack of steroid use may be contributing to her slow recovery -Echocardiogram done on 08/29/2019 showed normal EF at 60% with no wall motion abnormality and a negative bubble study -Continue as needed diuresis -Pulmonary medicine is following-appreciate input -Patient is currently on nasal cannula at 5 L and wore BiPAP overnight with 40% FiO2 Leukocytosis -Suspect related to steroid use -Continues to slowly trend down -Repeat CBC in a.m. Hyponatremia -Improved from yesterday to 135 -May be related to diuretics -Large change from yesterday as her sodium was 140 yesterday 130 today -Repeat lab in a.m. and if it continues to be a problem may need to pursue further work-up Hypokalemia -Potassium repleted -Mag level is normal at 1.7 -Repeat lab in a.m. Metabolic encephalopathy -Resolved History of RAUL -Continue PAP therapy with naps and nightly Hypothyroidism -Initial TSH was abnormal but free T4 was normal likely indicating euthyroid sick syndrome -Continue home Synthroid COPD -See above -Last FEV1 was 68% predicted CAD/HTN/HPL -Continue home atorvastatin -Continue home Plavix -Continue home metoprolol Anxiety/depression -Continue home Topamax -Continue home Cymbalta -Continue home BuSpar -Continue home lorazepam DVT prophylaxis -Continue enoxaparin 40 mg daily CODE STATUS -DNR CCA with no intubation We will transfer out of the ICU tomorrow if she remains stable for another 24 hours. She has had 7 status changes during her hospital course as her respiratory status tends to fluctuate considerably. Discussed with nursing. Charges/Coding Visit Charges Inpatient E&M: 72373 Subs Hosp L2
[2022-09-03] MEDS: MorphINE SOLN 10 MG/0.5 ML PO.SYRINGE 2.5 MG SL/PO (14:24)
[2022-09-03] MEDS: Ensure Clear 120 ML Liquid PO (17:07)
[2022-09-03] MEDS: Atorvastatin Calcium 80 MG Tablet PO (22:03)
[2022-09-03] MEDS: Montelukast 10 MG Tablet PO (22:03)
[2022-09-03] MEDS: Topiramate 50 MG Tablet PO (22:04)
[2022-09-03] MEDS: Menthol/Lanolin/Calamine/Znox 113 GM Tube 1 APPLIC TOPICAL (22:04)
[2022-09-04] VITALS (25 sets, daily range): BP systolic 87–138; BP diastolic 53–88; PULSE 77–97; RESP 14–23; TEMP 36.4–36.7; O2SAT 91–100; BMI 33.3
[2022-09-04] MEDS: DiphenhydrAMINE 25 MG Capsule PO (03:49)
[2022-09-04 06:16] LABS: Absolute Lymphocyte Count 2.43 X10^3/uL (0.83-4.51); Absolute Neutrophil Count 10.1 X10^3/uL (2.0-7.7); Basophil# 0.03 X10^3/uL; Basophil% 0.2 % (0-1); Eosinophils% 3.4 % (0-5); Hematocrit 32.6 % (37-47); Lymphocyte # 2.43 X10^3/ul (0.83-4.51); Lymphocyte % 16.7 % (19-41); Mean Corp Hgb Conc 30.7 g/dL (32-36); Mean Corpuscular Hgb 25.9 pg (27.0-32.0); Mean Corpuscular Volume 84.5 fL (81-99); Mean Platelet Vol. 10.9 fl (6.2-12.0); Monocyte# 1.37 X10^3/uL; Monocyte% 9.4 % (0-10); NRBC Flagged by Analyzer 0 % (0-5); Neutrophil # 10.14 X10^3/uL (2.7-7.7); Neutrophil % 69.5 % (47-70); Platelet Count 281 K/mm3 (150-450); RBC Distribution Width CV 14.1 % (11.6-14.6); RBC Distribution Width SD 43.1 fl (35.1-43.9); Red Blood Count 3.86 M/mm3 (4.2-5.4); White Blood Count 14.6 K/mm3 (4.4-11.0)
[2022-09-04 06:35] LABS: Anion Gap 5 (5-15); BUN 24 mg/dL (7-18); BUN/Creat Ratio 26.2 RATIO (10-20); Calcium,Total 9.4 mg/dL (8.5-10.1); Chloride 102 mmol/L (98-107); Creatinine, Serum 0.92 mg/dL (0.55-1.02); EST Glomerular Filtration Rate 65 mL/min (>60); Est Glom Filt Rate - Afr Amer 79 mL/min (>60); Estimated Creatinine Clearance 65.39 ml/min; Glucose 119 mg/dL (74-106); Magnesium 1.9 mg/dL (1.6-2.6); Phosphorus 2.2 mg/dL (2.5-4.9); Potassium 3.8 mmol/L (3.5-5.1); Sodium Level 136 mmol/L (136-145)
[2022-09-04] MEDS: Levothyroxine 75 MCG Tablet PO (06:40)
[2022-09-04] MEDS: Menthol/Lanolin/Calamine/Znox 113 GM Tube 1 APPLIC TOPICAL ×3 (06:40→21:47)
[2022-09-04] MEDS: Liothyronine 5 MCG Tablet 25 MCG PO (06:40)
[2022-09-04] MEDS: Ipratropium/Albuterol Sulfate 3 ML AMPUL.NEB INHALATION ×4 (07:15→19:15)
--- NOTE | 2022-09-04 07:38 | PCM.PN.INT ---
Assessment & Plan Assessment/Plan (1) Acute exacerbation of chronic obstructive pulmonary disease (COPD): PLAN: Plan RECOMMENDATIONS: 1. Wean supplemental oxygen to maintain saturations at or above 90%. 2. Continue scheduled bronchodilators. 3. Continue BiPAP breaks during the day. Continue with sleep. 4. Continue diuretics as tolerated by hemodynamics and renal function. 5. Consider scheduled long-acting anxiolytic 6. Mobilize patient as tolerated. 7. Potassium repletion as indicated. IMPRESSIONS: 1. Acute hypoxemic respiratory failure Unclear etiology, but appears to be fluid sensitive. The patient does have known underlying obstructive lung disease and continues to smoke cigarettes daily. Therefore, an exacerbation of her underlying COPD seems most likely. In light of her presenting radiographic findings, underlying pneumonia is a possibility. Her echocardiogram did not reveal any significant abnormalities. Lower extremity Doppler study was negative for DVT. CTA chest showed no evidence for pulmonary embolism. The patient has emphysematous changes and bullae present along with faint groundglass opacities in the right upper lobe. The patient has completed a treatment course of antibiotics. She remains on bronchodilators. Patient appears to be tolerating cessation of IV steroids okay, but this is likely leading to protracted recovery. The patient appears to be improving from an oxygenation standpoint with ongoing diuresis, which will be continued as tolerated by hemodynamics and renal function. We will continue to dose with Lasix as needed. Continue to wean supplemental oxygen to maintain saturations at or above 90%. Encourage incentive spirometer use and mobilize patient as tolerated. Patient may be having panic attacks leading to increased space ventilation. 2. Encephalopathy Resolved. Likely metabolic in etiology. Some concern with anxiolytics leading to recurrent delirium. The patient's arterial blood gas did not demonstrate evidence of CO2 retention. Although TSH was initially found to be low, free T4 level was within normal limits. Continue supportive measures as noted above. Delirium appears to be improving with cessation of steroids, which patient is tolerating from a respiratory standpoint 3. Chronic tobacco dependency/history of obstructive sleep apnea/hypertension/hypothyroidism Complicates care, management, recovery and prognosis. Continue PAP therapy with naps and nightly. Continue home Synthroid regimen. This note was generated with [employer] software. It may contain incorrect words, spelling, and punctuation that were not noted in checking the note before signing. Subjective Subjective Patient did well overnight. Patient continues to have issues where she will spontaneously desaturate requiring BiPAP rescue. Patient is not reporting any palpitations, chest pain or coughing as inciting events. Patient recovers quickly after BiPAP and states that she has no symptoms at this time. Patient believes this is associated with a panic attack. Objective Data Objective Data Vital Signs: Vital Signs Temp Pulse Resp BP Pulse Ox O2 Del Method O2 Flow Rate 36.6 C 81 15 137/77 H 93 Nasal Cannula 5 09/04/22 01:00 09/04/22 07:00 09/04/22 07:00 09/04/22 07:00 09/04/22 07:00 09/04/22 07:00 09/04/22 07:00 FiO2 35 09/04/22 02:02 Oxygen Flow Rate (L/min) 5 Oxygen Delivery Method Nasal Cannula Weight: 69.808 kg Body Mass Index (BMI) 33.3 Intake & Output: Intake and Output for Last 24 Hours 09/02/22 09/03/22 09/04/22 23:59 23:59 23:59 Intake Total 240 / 240 100.00 / 100.00 0 / 0 Output Total 900 / 900 200 / 200 Balance -660 / -660 -100.00 / -100.00 0 / 0 Lab / Micro Data Attestation: I reviewed the patient's lab results. Result Diagrams: 09/04/22 06:05 09/04/22 06:05 Labs: Laboratory Results - last 24 hr 09/02/22 08:10: KAILEE-1 Antibody <0.2, SS-A/Ro IgG Antibody < 0.2, SS-B/La IgG Antibody < 0.2, Sm (Shaw) Antibody <0.2, RESIDENTIAL COUNSELOR Antibody <0.2, Scl-70 Scleroderma Ab <0.2, Double Strand DNA Ab <1, Centromere B Antibody <0.2 09/04/22 06:05: Sodium 136, Potassium 3.8, Chloride 102, Carbon Dioxide 29.0, Anion Gap 5, BUN 24 H, Creatinine 0.92, Estim Creat Clear Calc 65.39, Est GFR (MDRD) Af Amer 79, Est GFR (MDRD) Non-Af 65, BUN/Creatinine Ratio 26.2 H, Glucose 119 H, Calcium 9.4, Phosphorus 2.2 L, Magnesium 1.9 09/04/22 06:05: WBC 14.6 H, RBC 3.86 L, Hgb 10.0 L, Hct 32.6 L, MCV 84.5, MCH 25.9 L, MCHC 30.7 L, RDW Std Deviation 43.1, RDW Coeff of Genaro 14.1, Plt Count 281, MPV 10.9, Immature Gran % (Auto) 0.800, Neut % (Auto) 69.5, Lymph % (Auto) 16.7 L, [place] % (Auto) 9.4, Eos % (Auto) 3.4, Baso % (Auto) 0.2, Absolute Neuts (auto) 10.1 H, Absolute Lymphs (auto) 2.43, Nucleated RBC % 0 Micro: Microbiology 08/23/22 20:45 Mucosa - Nasopharyngeal Respiratory Panel (PCR) - Final 08/23/22 16:30 Nasal Secretion SARS-CoV-2 & FLU Antigen (Rapid) - Final Rhythm Strip Rhythm Strip: Sinus Rhythm Rate: 80 Ectopy: None Physical Exam Const alert, oriented x3 and no apparent distress Constitutional Narrative: On nasal cannula during my evaluation General Appearance: cooperative Nutritional Appearance: obese HEENT normocephalic and head/scalp atraumatic Eyes PERRL, EOMs intact bilaterally and conjunctivae normal Neck supple General: trachea midline Chest inspection of chest normal Resp normal respiratory effort and no use of accessory muscles Auscultation: diminished lung sounds; Negative for rales, rhonchi or wheezes Cardio regular rate, regular rhythm, S1 normal heart sound, S2 normal heart sound and no murmurs GI normal to inspection, nondistended, normoactive bowel sounds Extremity no clubbing, cyanosis or edema General Extremity: amputation; Negative for clubbing or edema Skin no rashes or lesions noted Neuro CN's II-XII intact bilaterally, moves all extremities and no focal motor deficits Psych cooperative and affect normal Activity / Motor Behavior: restless Mood & Affect: flat affect Charges/Coding Visit Charges Inpatient E&M: 29122 Subs Hosp L2
[2022-09-04] MEDS: DULoxetine Hcl 60 MG Capsule PO ×2 (07:47→21:47)
[2022-09-04] MEDS: guaiFENesin/D-Methorphan TAB.SR.12H 2 TABLET PO ×2 (07:47→21:48)
[2022-09-04] MEDS: Metoprolol Tartrate 25 MG Tablet 12.5 MG PO ×2 (07:47→21:49)
[2022-09-04] MEDS: Triamcinolone Acetonide 0.1% Cream 15 gm 1 APPLIC TOPICAL ×2 (07:48→21:50)
[2022-09-04] MEDS: Famotidine 20 MG Tablet PO (07:48)
[2022-09-04] MEDS: Enoxaparin 40 MG/0.4 ML Syringe SC (07:48)
[2022-09-04] MEDS: Clopidogrel Bisulfate 75 MG Tablet PO (07:48)
[2022-09-04] MEDS: Pregabalin 50 MG Capsule PO (07:50)
[2022-09-04] MEDS: 0.9% Saline Lock 10 ML Syringe IV (08:40)
[2022-09-04] MEDS: Furosemide 40 MG/4 ML Vial IV (08:40)
[2022-09-04 09:09] LABS: Cytoplasmic Ab (C-ANCA) <1:20 titer (Neg:<1:20); Perinuclear Ab (P-ANCA) <1:20 titer (Neg:<1:20)
--- NOTE | 2022-09-04 09:44 | CASEMGMT ---
DEWAYNE LOPEZ NOTE: Per Dr Page, he anticipates pt will be ready for discharge in next 1-2 days. Call placed to [facility] and referral made. They are able to accept pt w/SOC slated for Thursday09/07/22. Veronica JARVISN DEWAYNE CM
[2022-09-04 09:53] LABS: Pathologist Review Reviewed
--- NOTE | 2022-09-04 13:46 | PN.HOSP_ITS ---
Reason for Visit Reason for Visit: Shortness of breath Objective Data Objective Data Vital Signs: Vital Signs Temp Pulse Resp BP Pulse Ox O2 Del Method O2 Flow Rate 98.1 F 85 18 107/53 L 92 Nasal Cannula 4 09/04/22 13:00 09/04/22 13:00 09/04/22 13:00 09/04/22 13:00 09/04/22 13:00 09/04/22 13:00 09/04/22 13:00 FiO2 35 09/04/22 09:25 Oxygen Flow Rate (L/min) 4 Oxygen Delivery Method Nasal Cannula Weight: 69.808 kg Body Mass Index (BMI) 33.3 Intake & Output: Intake and Output for Last 24 Hours 09/02/22 09/03/22 09/04/22 23:59 23:59 23:59 Intake Total 240 / 240 100.00 / 100.00 0 / 0 Output Total 900 / 900 200 / 200 900 / 900 Balance -660 / -660 -100.00 / -100.00 -900 / -900 Lab / Micro Data Result Diagrams: 09/04/22 06:05 09/04/22 06:05 Labs: Laboratory Results - last 24 hr 09/02/22 04:38: Diff Path Review Reviewed 09/02/22 08:10: c-ANCA Antibody <1:20, Atypical p-ANCA <1:20, p-ANCA Antibody <1:20 09/02/22 08:10: KAILEE-1 Antibody <0.2, SS-A/Ro IgG Antibody < 0.2, SS-B/La IgG Antibody < 0.2, Sm (Shaw) Antibody <0.2, RADIAL DRILL PRESS OPERATOR FOR PLASTIC Antibody <0.2, Scl-70 Scleroderma Ab <0.2, Double Strand DNA Ab <1, Centromere B Antibody <0.2 09/04/22 06:05: Sodium 136, Potassium 3.8, Chloride 102, Carbon Dioxide 29.0, Anion Gap 5, BUN 24 H, Creatinine 0.92, Estim Creat Clear Calc 65.39, Est GFR (MDRD) Af Amer 79, Est GFR (MDRD) Non-Af 65, BUN/Creatinine Ratio 26.2 H, G lucose 119 H, Calcium 9.4, Phosphorus 2.2 L, Magnesium 1.9 09/04/22 06:05: WBC 14.6 H, RBC 3.86 L, Hgb 10.0 L, Hct 32.6 L, MCV 84.5, MCH 25 .9 L, MCHC 30.7 L, RDW Std Deviation 43.1, RDW Coeff of Genaro 14.1, Plt Count 281, MPV 10.9, Immature Gran % (Auto) 0.800, Neut % (Auto) 69.5, Lymph % (Auto) 16.7 L, [place] % (Auto) 9.4, Eos % (Auto) 3.4, Baso % (Auto) 0.2, Absolute Neuts (auto) 10.1 H, Absolute Lymphs (auto) 2.43, Nucleated RBC % 0 Micro: Microbiology 08/23/22 20:45 Mucosa - Nasopharyngeal Respiratory Panel (PCR) - Final 08/23/22 16:30 Nasal Secretion SARS-CoV-2 & FLU Antigen (Rapid) - Final Rhythm Strip Rhythm Strip: Sinus Rhythm Rate: 80 Ectopy: None Physical Exam Const alert, oriented x3, no apparent distress and well nourished Constitutional Narrative: Obese, upper middle-aged, white female, appears older than stated age, sitting up in bed on 4 L nasal cannula, watching television, appears comfortable with no signs of respiratory distress HEENT head/scalp atraumatic and moist oral mucous membranes HEENT Narrative: Mallampati 2, no thrush Head and Scalp: normocephalic Resp normal respiratory effort, no retractions, no use of accessory muscles and No clear to auscultation bilaterally Resp Narrative: Diminished with scattered end expiratory wheeze Auscultation: wheezes; Negative for rales or rhonchi Cardio regular rate, regular rhythm, S1 normal heart sound, S2 normal heart sound, no murmurs, no rub, no gallops and no clicks GI normal to inspection, nondistended, normoactive bowel sounds and soft to pa lpation Extremity no clubbing, cyanosis or edema Extremity Narrative: Pedal pulses are 2+ on the left, BKA on the right Neuro oriented x3, moves all extremities and no focal motor deficits Speech: speech normal Psych affect normal Psych Narrative: Very pleasant, interacts normally Assessment & Plan Assessment/Plan (1) Acute respiratory failure with hypoxia: (2) Hypokalemia: (3) Toxic metabolic encephalopathy: (4) Hyponatremia: PLAN: Plan Acute hypoxic respiratory failure -Etiology is unclear at this time--> but overall seems improved -Infectious work-up has been unremarkable -CTA negative for PE -Respiratory viral panel unremarkable -COVID/flu unremarkable -No peripheral eosinophilia -Has COPD with emphysematous changes and bullae along with faint groundglass opacities in the right upper lobe -And repeat CT from yesterday actually shows overall improvement -Autoimmune work-up initiated since she is not dramatically improving--> results are still pending -Completed antibiotic course -Steroids discontinued secondary to confusion on 08/31/2022--> the lack of steroid use may be contributing to her slow recovery -Echocardiogram done on 08/29/2019 showed normal EF at 60% with no wall motion abnormality and a negative bubble study -Continue as needed diuresis -Pulmonary medicine is following-appreciate input -Patient is currently on nasal cannula at 4 L and wore BiPAP overnight with 40% FiO2 -Continue to wean oxygen as able and will transfer out of ICU Leukocytosis -Suspect related to steroid use -Trending down further in the last 24 -Repeat CBC in a.m. Hyponatremia -Resolved Hypokalemia -Resolved History of RAUL -Continue PAP therapy with naps and nightly Hypothyroidism -Initial TSH was abnormal but free T4 was normal likely indicating euthyroid sick syndrome -Continue home Synthroid COPD -See above -Last FEV1 was 68% predicted CAD/HTN/HPL -Continue home atorvastatin -Continue home Plavix -Continue home metoprolol Anxiety/depression -Continue home Topamax -Continue home Cymbalta -Continue home BuSpar -Continue home lorazepam DVT prophylaxis -Continue enoxaparin 40 mg daily CODE STATUS -DNR CCA with no intubation Transfer to PCU Charges/Coding Visit Charges Inpatient E&M: 07923 Subs Hosp L2
[2022-09-04] MEDS: Montelukast 10 MG Tablet PO (21:47)
[2022-09-04] MEDS: Atorvastatin Calcium 80 MG Tablet PO (21:48)
[2022-09-04] MEDS: Na Biphos/Potassium Phosphate PACKET 1 PACKET PO (21:48)
[2022-09-04] MEDS: Topiramate 50 MG Tablet PO (21:49)
[2022-09-04] MEDS: Ensure Clear 120 ML Liquid PO (21:51)
--- NOTE | 2022-09-04 23:00 | CPS ---
Pt requested not to use BiPAP for tonight.
[2022-09-05] VITALS (21 sets, daily range): BP systolic 102–127; BP diastolic 46–83; PULSE 81–97; RESP 14–23; TEMP 36.3–36.9; O2SAT 90–98; BMI 33.3
[2022-09-05 04:29] LABS: Absolute Lymphocyte Count 2.94 X10^3/uL (0.83-4.51); Absolute Neutrophil Count 10.6 X10^3/uL (2.0-7.7); Basophil# 0.05 X10^3/uL; Basophil% 0.3 % (0-1); Eosinophil# 0.38 X10^3/uL; Eosinophils% 2.4 % (0-5); Hematocrit 36.9 % (37-47); Hemoglobin 11.4 g/dL (12.0-15.0); Lymphocyte # 2.94 X10^3/ul (0.83-4.51); Lymphocyte % 18.9 % (19-41); Mean Corp Hgb Conc 30.9 g/dL (32-36); Mean Corpuscular Hgb 26.1 pg (27.0-32.0); Mean Corpuscular Volume 84.6 fL (81-99); Mean Platelet Vol. 11.3 fl (6.2-12.0); Monocyte# 1.45 X10^3/uL; Monocyte% 9.3 % (0-10); NRBC Flagged by Analyzer 0 % (0-5); Neutrophil % 68.5 % (47-70); POSITIVE COUNT YES; Platelet Count 317 K/mm3 (150-450); RBC Distribution Width CV 14.2 % (11.6-14.6); RBC Distribution Width SD 43.5 fl (35.1-43.9); Red Blood Count 4.36 M/mm3 (4.2-5.4); White Blood Count 15.5 K/mm3 (4.4-11.0)
[2022-09-05 04:30] LABS: Differential Indicated SCAN CRITERIA MET
[2022-09-05 04:55] LABS: Anion Gap 6 (5-15); BUN 23 mg/dL (7-18); BUN/Creat Ratio 27.4 RATIO (10-20); Calcium,Total 9.7 mg/dL (8.5-10.1); Chloride 102 mmol/L (98-107); Creatinine, Serum 0.84 mg/dL (0.55-1.02); EST Glomerular Filtration Rate 72 mL/min (>60); Est Glom Filt Rate - Afr Amer 87 mL/min (>60); Estimated Creatinine Clearance 71.62 ml/min; Glucose 114 mg/dL (74-106); Potassium 3.9 mmol/L (3.5-5.1); Sodium Level 133 mmol/L (136-145)
[2022-09-05 05:17] LABS: Differential Comment SCANNED; Platelet Estimate ADEQUATE (ADEQ)
[2022-09-05] MEDS: Menthol/Lanolin/Calamine/Znox 113 GM Tube 1 APPLIC TOPICAL (05:32)
[2022-09-05] MEDS: Liothyronine 5 MCG Tablet 25 MCG PO (05:33)
[2022-09-05] MEDS: Levothyroxine 75 MCG Tablet PO (05:33)
[2022-09-05] MEDS: Ipratropium/Albuterol Sulfate 3 ML AMPUL.NEB INHALATION ×4 (07:00→20:05)
[2022-09-05] MEDS: Metoprolol Tartrate 25 MG Tablet 12.5 MG PO ×2 (08:34→23:35)
[2022-09-05] MEDS: Clopidogrel Bisulfate 75 MG Tablet PO (08:34)
[2022-09-05] MEDS: guaiFENesin/D-Methorphan TAB.SR.12H 2 TABLET PO ×2 (08:35→23:35)
[2022-09-05] MEDS: Na Biphos/Potassium Phosphate PACKET 1 PACKET PO (08:35)
[2022-09-05] MEDS: Enoxaparin 40 MG/0.4 ML Syringe SC (08:35)
[2022-09-05] MEDS: Famotidine 20 MG Tablet PO (08:35)
[2022-09-05] MEDS: Triamcinolone Acetonide 0.1% Cream 15 gm 1 APPLIC TOPICAL ×2 (08:35→23:36)
[2022-09-05] MEDS: DULoxetine Hcl 60 MG Capsule PO ×2 (08:35→23:35)
[2022-09-05] MEDS: Pregabalin 50 MG Capsule PO (08:42)
--- NOTE | 2022-09-05 09:34 | CASEMGMT ---
RN JESSICA NOTE: Per Janie, ST, pt will not need ST after discharge. Cecilia @ [facility] made aware and new order placed for HHC for SN and PT/OT only. (Not ST) Pt made aware [facility] able [facility] accept her and SOC planned for Thursday. [facility] called pt while RN JESSICA in room to arrange for SOC. HHC info added to Green sheet. Veronica VILLANUEVA RN CM
--- NOTE | 2022-09-05 12:30 | PN.CC_ITS ---
Assessment & Plan Assessment/Plan (1) Acute respiratory failure with hypoxia: (2) RAUL (obstructive sleep apnea): (3) Chronic respiratory failure with hypoxia: PLAN: Plan [facility] Medical Records Department [address] [place] [address] Progress Note - Recreation Coordinator 09/04/22 0738 MR#:? [id number] Acct: [id number] Name: TAJ BLANK Rep #: [id number] :? 1955 Assessment/Plan (1) Acute exacerbation of chronic obstructive pulmonary disease (COPD): RECOMMENDATIONS: 1.? Although this patient seems to have altered mental status on systemic steroids, due to her severe asthmatic component to COPD, which may explain her rapid onset respiratory crises, high-dose inhaled steroid should be a regular part of her regimen. I have therefore added Symbicort 160/4.5, 2 puffs twice daily with a spacer which she should continue indefinitely, and especially in the next 30 days after discharge since they have been shown to decrease readmissions for COPD exacerbations. 2.? Continue scheduled bronchodilators, p.o. steroid taper. Add high-dose inhaled steroids with a spacer. Wean supplemental oxygen to maintain saturations at or above 90%. Antibiotics are complete. 3.? Continue BiPAP breaks during the day.? Continue with sleep. 4.? Continue diuretics as needed 5.? Consider scheduled long-acting anxiolytic which has minimal impact on breathing (i.e., no benzodiazepines) and avoid narcotics. 6.? Mobilize patient as tolerated. 7.? Potassium repletion as indicated. 8. Follow-up with pulmonary as outpatient 9. Baseline ABG ordered today on 5 LPM O2. IMPRESSIONS: 1.??Acute on chronic hypoxemic respiratory failure due to COPD exacerbation, improving, ready for transfer to the floor. Patient has known COPD with an asthmatic component on PFTs om 2020, and has a pattern of developing sudden severe respiratory failure episodes, seems to have episodic panic attacks, which always resolve with BiPAP and conventional treatment of her COPD. Triggers for the attacks are uncertain, but may be related to triggers for her marked baseline airway reactivity. She feels albuterol does help.? She is a daily smoker.? Her echocardiogram did not reveal any significant abnormalities.? Lower extremity Doppler study was negative for DVT.? CTA chest showed no evidence for pulmonary embolism.? The patient has emphysematous changes and bullae present along with faint groundglass opacities in the right upper lobe.? Recommend intensifying her inhaled steroid maintenance regimen, and respiratory coaching for pursed lip breathing during episodes of severe dyspnea and panic attacks. She specifically denies chest pressure, palpitations, arm pain or nausea during those episodes, therefore unlikely to be cardiac in origin. 2.??Encephalopathy Metabolic encephalopathy likely related to acute hypoxic respiratory failure. Resolved. Continue supportive measures as noted above.? 3.??Chronic tobacco dependency/history of obstructive sleep apnea/hypertension/hypothyroidism Complicates care, management, recovery and prognosis.? Continue PAP therapy with naps and nightly.? Continue home Synthroid regimen. This note was generated with [employer] software. It may contain incorrect words, spelling, and punctuation that were not noted in checking the note before signing. Subjective Subjective Patient is stable on 4 L/min, with no respiratory complaints, no sleep disruption due to dyspnea, she did not use her BiPAP last night. Objective Data Objective Data The patient was seen and examined at the bedside this morning. Events from the last 24 hours have been reviewed. The patient's most recent labs microbiology and imaging have all been personally reviewed. The case was discussed on ICU interdisciplinary rounds. Overnight: Stable overnight, refused BiPAP. Pertinent events include: Patient is now on PCU status, pulmonary critical care will sign off. Vital Signs: Vital Signs Temp Pulse Resp BP Pulse Ox O2 Del Method O2 Flow Rate 97.3 F L 81 23 H 110/54 L 98 Nasal Cannula 3 09/05/22 11:37 09/05/22 11:51 09/05/22 11:51 09/05/22 11:37 09/05/22 11:51 09/05/22 11:37 09/05/22 11:37 FiO2 35 09/05/22 11:51 Review of records show pulmonary function testing dated 10/18/2020 Oxygen Flow Rate (L/min) 3 Oxygen Delivery Method Nasal Cannula Weight: 154 lb 4.8 oz Body Mass Index (BMI) 33.3 Pulmonary function testing October 18, 2020 showed moderate airway obstruction with a markedly positive +18%bronchodilator response. FVC postbronchodilator 90% predicted FEV1 65% predicted FEV1/FVC 55 Lung volume study showed no evidence of restriction or hyperinflation. The total lung capacity was 101% predicted. Diffusing capacity showed severe gas exchange abnormality of 36% predicted, which did not normalize with correction for lung volumes. DL/VA was 60% consistent with COPD. Intake & Output: Intake and Output for Last 24 Hours 09/03/22 09/04/22 09/05/22 23:59 23:59 23:59 Intake Total 100.00 / 100.00 0 / 320 500 / 500 Output Total 200 / 200 900 / 1000 500 / 500 Balance -100.00 / -100.00 -900 / -680 0 / 0 Lab / Micro Data Result Diagrams: 09/05/22 04:10 09/05/22 04:10 Labs: Laboratory Results - last 24 hr 09/05/22 04:10: WBC 15.5 H, RBC 4.36, Hgb 11.4 L, Hct 36.9 L, MCV 84.6, MCH 26.1 L, MCHC 30.9 L, RDW Std Deviation 43.5, RDW Coeff of Genaro 14.2, Plt Count 317, MPV 11.3, Immature Gran % (Auto) 0.600, Neut % (Auto) 68.5, Lymph % (Auto) 18.9 L, [place] % (Auto) 9.3, Eos % (Auto) 2.4, Baso % (Auto) 0.3, Absolute Neuts (auto) 10.6 H, Absolute Lymphs (auto) 2.94, Nucleated RBC % 0, Differential Comment SCA NNED, Platelet Estimate ADEQUATE 09/05/22 04:10: Sodium 133 L, Potassium 3.9, Chloride 102, Carbon Dioxide 25.0, Anion Gap 6, BUN 23 H, Creatinine 0.84, Estim Creat Clear Calc 71.62, Est GFR (MDRD) Af Amer 87, Est GFR (MDRD) Non-Af 72, BUN/Creatinine Ratio 27.4 H, Glucose 114 H, Calcium 9.7 Micro: Microbiology 08/23/22 20:45 Mucosa - Nasopharyngeal Respiratory Panel (PCR) - Final 08/23/22 16:30 Nasal Secretion SARS-CoV-2 & FLU Antigen (Rapid) - Final Radiography Diagnostic Testing: [facility] Imaging Services [address] [place] [address] Chest without Contrast MR#:? [id number] Acct: [id number] Name:? TAJ BLANK Rep #: [id number] :?? 1955 F 67 ? From:? ? Luis Antonio Mota MD PCP: Dr. Chrystal Michel, DO ? Status: ADM IN Study: Chest without Contrast ? Date of Exam: 09/02/22 Exam# [id number] ? Ordering Dr:? Cherelle Almendarez DO STUDY:? CT CHEST WITHOUT CONTRAST REASON FOR EXAM: ? Female, 67 years old.? Hypoxia RADIATION DOSAGE (If Supplied By Facility):? CTDIvol = ( 15.58 ) mGy, DLP = ( 556.68 ) mGycm TECHNIQUE: ? Transaxial imaging was performed without the administration of intravenous contrast material.? Multiplanar coronal and sagittal images were reformatted. Individualized dose optimization techniques were used for this CT. COMPARISON: ? Comparison is made with prior study August 24, 2022. FINDINGS: CHEST Emphysematous changes with centrilobular emphysema and the upper lobes. Minimal increased linear markings at the lung bases slightly more prominent on the left side suggestive of a atelectasis and/or scarring.? There is no demonstrated pleural abnormality. There are calcifications of the coronary arteries. There are multiple small lymph nodes within the mediastinum, which are normal in size and morphology most compatible with reactive lymph hyperplasia.? Normal hilar regions. Normal unenhanced pulmonary arteries. There is atherosclerotic calcification of the aortic arch with tortuosity and elongation of the aortic arch and descending thoracic aorta. Once again, the patient is status post interventricular sclerotic fixation of the visualized thoracic and lumbar spines. Stable severe compression of the T8 vertebrae. There is no demonstrated abnormality of the visualized upper abdomen. CT/Chest without Contrast IMPRESSION: Mild degree of scarring and/or atelectasis at the lung bases likely more prominent on the left side with a superimposed emphysema and hyperinflation. ? Electronically Signed: Luis Antonio Mota MD at 14:12 EDT Rhythm Strip Rhythm Strip: Sinus Rhythm Rate: 80 Ectopy: None Physical Exam Narrative Well-developed pale woman in no respiratory distress. Wearing her oxygen HEENT exam is unremarkable, mucous membranes are moist Lungs are diminished but clear bilaterally with no wheezes rales or rhonchi Heart normal S1 1 S2 with no murmurs rubs or gallops Abdomen is soft, nontender. Extremities with right BKA, mild erythema of the anterior stump, with the skin intact and closed over the bone. Neuro is grossly nonfocal, diffuse mild weakness. Skin is warm and dry.. Charges/Coding Visit Charges Inpatient E&M: 94237 Subs Hosp L3
--- NOTE | 2022-09-05 13:35 | PCM.PN.HOSP ---
Reason for Visit Reason for Visit: Shortness of breath Subjective Subjective Patient had a good night. She did not utilize BiPAP since the night previously. Has been on 4 L supplemental nasal cannula without any difficulty. Therapy to see the patient today and get her up moving. She is stating she will not go to rehab facility at discharge but will be excepting of home health care at discharge. I did discuss with her the possibility of discharge home tomorrow with home health as long as she stays stable from a respiratory standpoint. She is aware that she will likely need to go home with oxygen supplementation. Objective Data Objective Data Vital Signs: Vital Signs Temp Pulse Resp BP Pulse Ox O2 Del Method O2 Flow Rate 97.3 F L 81 23 H 110/54 L 98 Nasal Cannula 3 09/05/22 11:37 09/05/22 11:51 09/05/22 11:51 09/05/22 11:37 09/05/22 11:51 09/05/22 11:37 09/05/22 11:37 FiO2 35 09/05/22 11:51 Oxygen Flow Rate (L/min) 3 Oxygen Delivery Method Nasal Cannula Weight: 69.989 kg Body Mass Index (BMI) 33.3 Intake & Output: Intake and Output for Last 24 Hours 09/03/22 09/04/22 09/05/22 23:59 23:59 23:59 Intake Total 100.00 / 100.00 0 / 320 500 / 500 Output Total 200 / 200 900 / 1000 875 / 875 Balance -100.00 / -100.00 -900 / -680 -375 / -375 Lab / Micro Data Result Diagrams: 09/05/22 04:10 09/05/22 04:10 Labs: Laboratory Results - last 24 hr 09/05/22 04:10: WBC 15.5 H, RBC 4.36, Hgb 11.4 L, Hct 36.9 L, MCV 84.6, MCH 26.1 L, MCHC 30.9 L, RDW Std Deviation 43.5, RDW Coeff of Genaro 14.2, Plt Count 317, MPV 11.3, Immature Gran % (Auto) 0.600, Neut % (Auto) 68.5, Lymph % (Auto) 18.9 L, [place] % (Auto) 9.3, Eos % (Auto) 2.4, Baso % (Auto) 0.3, Absolute Neuts (auto) 10.6 H, Absolute Lymphs (auto) 2.94, Nucleated RBC % 0, Differential Comment SCANNED, Platelet Estimate ADEQUATE 09/05/22 04:10: Sodium 133 L, Potassium 3.9, Chloride 102, Carbon Dioxide 25.0, Anion Gap 6, BUN 23 H, Creatinine 0.84, Estim Creat Clear Calc 71.62, Est GFR (MDRD) Af Amer 87, Est GFR (MDRD) Non-Af 72, BUN/Creatinine Ratio 27.4 H, Glucose 114 H, Calcium 9.7 Micro: Microbiology 08/23/22 20:45 Mucosa - Nasopharyngeal Respiratory Panel (PCR) - Final 08/23/22 16:30 Nasal Secretion SARS-CoV-2 & FLU Antigen (Rapid) - Final Rhythm Strip Rhythm Strip: Sinus Rhythm Rate: 80 Ectopy: None Physical Exam Const alert, oriented x3, no apparent distress and well nourished Constitutional Narrative: Obese, upper middle-aged, white female, appears older than stated age, sitting up in bed on 4 L nasal cannula, watching television, appears comfortable with no signs of respiratory distress, nursing at bedside HEENT head/scalp atraumatic and moist oral mucous membranes Head and Scalp: normocephalic Resp normal respiratory effort, no retractions, no use of accessory muscles and No clear to auscultation bilaterally Resp Narrative: Diminished with scattered end expiratory wheeze Auscultation: Negative for rales, rhonchi or wheezes Cardio regular rate, regular rhythm, S1 normal heart sound, S2 normal heart sound, no murmurs, no rub, no gallops and no clicks GI normal to inspection, nondistended, normoactive bowel sounds and soft to palpation Extremity no clubbing, cyanosis or edema Extremity Narrative: Pedal pulses are 2+ on the left, BKA on the right Neuro oriented x3, moves all extremities and no focal motor deficits Speech: speech normal Psych affect normal Psych Narrative: Very pleasant, interacts normally Assessment & Plan Assessment/Plan (1) Acute respiratory failure with hypoxia: (2) Hypokalemia: (3) Toxic metabolic encephalopathy: (4) Hyponatremia: PLAN: Plan Acute hypoxic respiratory failure -Etiology is unclear at this time--> but overall seems improved -Infectious work-up has been unremarkable -CTA negative for PE -Respiratory viral panel unremarkable -COVID/flu unremarkable -No peripheral eosinophilia -Has COPD with emphysematous changes and bullae along with faint groundglass opacities in the right upper lobe -And repeat CT from yesterday actually shows overall improvement -Autoimmune work-up was unremarkable -Completed antibiotic course -Steroids discontinued secondary to confusion on 08/31/2022--> the lack of steroid use may be contributing to her slow recovery -Echocardiogram done on 08/29/2019 showed normal EF at 60% with no wall motion abnormality and a negative bubble study -Continue as needed diuresis -Pulmonary medicine is following-appreciate input -Patient has not been on 4 L alone over 24 hours and doing well -We will plan for probable discharge home tomorrow if she remains stable Leukocytosis -Suspect related to steroid use -Remains slightly elevated but overall much improved -Repeat CBC in a.m. Hyponatremia -Mild and appears to be somewhat chronic History of RAUL -Continue PAP therapy with naps and nightly Hypothyroidism -Initial TSH was abnormal but free T4 was normal likely indicating euthyroid sick syndrome -Continue home Synthroid COPD -See above -Last FEV1 was 68% predicted CAD/HTN/HPL -Continue home atorvastatin -Continue home Plavix -Continue home metoprolol Anxiety/depression -Continue home Topamax -Continue home Cymbalta -Continue home BuSpar -Continue home lorazepam DVT prophylaxis -Continue enoxaparin 40 mg daily CODE STATUS -DNR CCA with no intubation Disposition: -Likely discharge home tomorrow with home health care as patient is refusing any skilled placement at discharge. She will likely need to go home on supplemental oxygen I discussed this with case management Charges/Coding Visit Charges Inpatient E&M: 72590 Subs Hosp L2
[2022-09-05 14:31] LABS: Base Excess 5 mmol/L (-2 to +2); Bicarbonate 28.5 mmol/L (22-26); Blood Gas Specimen Type ART; O2 Delivery Device Cannula; PO2 62 mmHG (75-100); SITE L Brach; SO2 93 % (95-99); Total Carbon Dioxide 30 mmol/L; pCO2 38.3 mmHg (35-45); pH 7.48 (7.35-7.45)
[2022-09-05] MEDS: Budesonide Respules 0.5 MG/2 ML AMPUL.NEB. INHALATION (20:05)
[2022-09-05] MEDS: Topiramate 50 MG Tablet PO (23:35)
[2022-09-05] MEDS: Montelukast 10 MG Tablet PO (23:35)
[2022-09-05] MEDS: Atorvastatin Calcium 80 MG Tablet PO (23:36)
[2022-09-06] VITALS (10 sets, daily range): BP systolic 112–125; BP diastolic 65–72; PULSE 19–87; RESP 14–79; TEMP 36.6–36.8; O2SAT 84–95; BMI 33.4
[2022-09-06] MEDS: Levothyroxine 75 MCG Tablet PO (06:34)
[2022-09-06] MEDS: Liothyronine 5 MCG Tablet 25 MCG PO (06:34)
[2022-09-06] MEDS: Budesonide Respules 0.5 MG/2 ML AMPUL.NEB. INHALATION (07:40)
[2022-09-06] MEDS: Ipratropium/Albuterol Sulfate 3 ML AMPUL.NEB INHALATION ×2 (07:41→11:14)
[2022-09-06 08:12] LABS: Absolute Lymphocyte Count 2.19 X10^3/uL (0.83-4.51); Absolute Neutrophil Count 7.3 X10^3/uL (2.0-7.7); Basophil# 0.03 X10^3/uL; Basophil% 0.3 % (0-1); Eosinophil# 0.29 X10^3/uL; Eosinophils% 2.7 % (0-5); Hematocrit 31.6 % (37-47); Hemoglobin 9.7 g/dL (12.0-15.0); Lymphocyte # 2.19 X10^3/ul (0.83-4.51); Lymphocyte % 20.2 % (19-41); Mean Corp Hgb Conc 30.7 g/dL (32-36); Mean Corpuscular Hgb 26.1 pg (27.0-32.0); Mean Corpuscular Volume 84.9 fL (81-99); Mean Platelet Vol. 10.9 fl (6.2-12.0); Monocyte# 1.03 X10^3/uL; Monocyte% 9.5 % (0-10); NRBC Flagged by Analyzer 0 % (0-5); Neutrophil # 7.26 X10^3/uL (2.7-7.7); Neutrophil % 66.8 % (47-70); Platelet Count 319 K/mm3 (150-450); RBC Distribution Width CV 14.4 % (11.6-14.6); RBC Distribution Width SD 44.1 fl (35.1-43.9); Red Blood Count 3.72 M/mm3 (4.2-5.4); White Blood Count 10.9 K/mm3 (4.4-11.0)
[2022-09-06 08:33] LABS: Anion Gap 6 (5-15); BUN 19 mg/dL (7-18); BUN/Creat Ratio 23.5 RATIO (10-20); Calcium,Total 9.5 mg/dL (8.5-10.1); Chloride 103 mmol/L (98-107); Creatinine, Serum 0.81 mg/dL (0.55-1.02); EST Glomerular Filtration Rate 75 mL/min (>60); Est Glom Filt Rate - Afr Amer 91 mL/min (>60); Estimated Creatinine Clearance 74.58 ml/min; Glucose 128 mg/dL (74-106); Potassium 3.6 mmol/L (3.5-5.1); Sodium Level 138 mmol/L (136-145)
[2022-09-06] MEDS: Metoprolol Tartrate 25 MG Tablet 12.5 MG PO (09:01)
[2022-09-06] MEDS: DULoxetine Hcl 60 MG Capsule PO (09:01)
[2022-09-06] MEDS: Enoxaparin 40 MG/0.4 ML Syringe SC (09:02)
[2022-09-06] MEDS: guaiFENesin/D-Methorphan TAB.SR.12H 2 TABLET PO (09:02)
[2022-09-06] MEDS: Clopidogrel Bisulfate 75 MG Tablet PO (09:04)
[2022-09-06] MEDS: Triamcinolone Acetonide 0.1% Cream 15 gm 1 APPLIC TOPICAL (09:04)
[2022-09-06] MEDS: Famotidine 20 MG Tablet PO (09:04)
[2022-09-06] MEDS: Pregabalin 50 MG Capsule PO (09:07)
--- NOTE | 2022-09-06 11:19 | DS.PCM_ITS ---
Providers Date of Admission: 08/23/22 Primary Care Physician: Dr. Chrystal Michel, DO Consultations 08/26/22 10:08 Consult: Steam [facility] / Pulmonary Medicine Routine Consulting Provider: Pulmonary Medicine suresh Farr Reason for Consult: acute on chr combined resp failure, copder EMERGENT Consult: No MD Notified: Yes Date Notified: 08/26/22 Time Notified: 10:08 Method of Notification: Text Reason For Visit: ACUTE HYPOXEMIC RESPIRATORY FAILURE Diagnosis Discharge Diagnosis (1) Acute respiratory failure with hypoxia: Status: Acute Code(s): J96.01 - Acute respiratory failure with hypoxia (2) Hypokalemia: Status: Resolved Code(s): E87.6 - Hypokalemia (3) Toxic metabolic encephalopathy: Status: Acute Code(s): G92.8 - Other toxic encephalopathy (4) Hyponatremia: Status: Acute Code(s): E87.1 - Hypo-osmolality and hyponatremia Plan Acute hypoxic respiratory failure -Etiology is unclear at this time--> but overall seems improved -Infectious work-up has been unremarkable -CTA negative for PE -Respiratory viral panel unremarkable -COVID/flu unremarkable -No peripheral eosinophilia -Has COPD with emphysematous changes and bullae along with faint groundglass opacities in the right upper lobe -And repeat CT from yesterday actually shows overall improvement -Autoimmune work-up was unremarkable -Completed antibiotic course -Steroids discontinued secondary to confusion on 08/31/2022--> the lack of steroid use may be contributing to her slow recovery -Echocardiogram done on 08/29/2019 showed normal EF at 60% with no wall motion abnormality and a negative bubble study -Continue as needed diuresis -Pulmonary medicine is following-appreciate input -Patient has not been on 4 L alone over 24 hours and doing well -We will plan for probable discharge home tomorrow if she remains stable Leukocytosis -Suspect related to steroid use -Remains slightly elevated but overall much improved -Repeat CBC in a.m. Hyponatremia -Mild and appears to be somewhat chronic History of RAUL -Continue PAP therapy with naps and nightly Hypothyroidism -Initial TSH was abnormal but free T4 was normal likely indicating euthyroid sick syndrome -Continue home Synthroid COPD -See above -Last FEV1 was 68% predicted CAD/HTN/HPL -Continue home atorvastatin -Continue home Plavix -Continue home metoprolol Anxiety/depression -Continue home Topamax -Continue home Cymbalta -Continue home BuSpar -Continue home lorazepam DVT prophylaxis -Continue enoxaparin 40 mg daily CODE STATUS -DNR CCA with no intubation Disposition: -Likely discharge home tomorrow with home health care as patient is refusing any skilled placement at discharge. She will likely need to go home on supplemental oxygen I discussed this with case management Medications at Discharge Home Medications atorvastatin 80 mg tablet 80 mg PO QHS cholesterol 06/01/13 clopidogrel 75 mg tablet 75 mg PO DAILY anti platelet 06/01/13 metoprolol tartrate 25 mg tablet 12.5 mg PO BID blood pressure 06/01/13 lorazepam 1 mg tablet (Ativan) 1 mg PO BID-TID PRN Anxiety 11/17/18 hydroxyzine HCl 50 mg tablet 50 mg PO QHS 12/01/18 duloxetine 60 mg capsule,delayed release 60 mg PO BID 06/19/20 albuterol sulfate 90 mcg/actuation aerosol inhaler 1 - 2 puff inhalation Q6H PRN PRN COPD #2 device 06/03/22 buspirone 7.5 mg tablet 7.5 mg PO BID 06/03/22 montelukast 10 mg tablet 10 mg PO QPM #90 tabs 06/03/22 diclofenac sodium 75 mg tablet,delayed release 75 mg PO BID 08/23/22 furosemide 40 mg tablet 60 mg PO DAILY 08/23/22 hydroxychloroquine 200 mg tablet 200 mg PO BID 08/23/22 ipratropium 0.5 mg-albuterol 3 mg (2.5 mg base)/3 mL nebulization soln 3 ml inhalation Q4H PRN SOB 08/23/22 levothyroxine 50 mcg tablet 50 mcg PO DAILY 08/23/22 liothyronine 5 mcg tablet 25 mcg PO DAILY 08/23/22 pregabalin 50 mg capsule 50 mg PO DAILY 08/23/22 tiotropium bromide 2.5 mcg/actuation mist for inhalation (Spiriva Respimat) 2 inh inhalation DAILY 08/23/22 topiramate 25 mg tablet 50 mg PO QHS 08/23/22 triamcinolone acetonide 0.1 % topical cream 1 applic topical BID 08/23/22 Weight / BMI Weight Weight: 70.1 kg Body Mass Index (BMI) 33.4 ABG / Lab / Microbiology Data Result Diagrams: 09/06/22 07:15 09/06/22 07:15 Laboratory: Laboratory Results - last 24 hr 09/06/22 07:15: WBC 10.9, RBC 3.72 L, Hgb 9.7 L, Hct 31.6 L, MCV 84.9, MCH 26.1 L, MCHC 30.7 L, RDW Std Deviation 44.1 H, RDW Coeff of Genaro 14.4, Plt Count 319, MPV 10.9, Immature Gran % (Auto) 0.500, Neut % (Auto) 66.8, Lymph % (Auto) 20.2, [place] % (Auto) 9.5, Eos % (Auto) 2.7, Baso % (Auto) 0.3, Absolute Neuts (auto) 7.3, Absolute Lymphs (auto) 2.19, Nucleated RBC % 0 09/06/22 07:15: Sodium 138, Potassium 3.6, Chloride 103, Carbon Dioxide 29.0, Anion Gap 6, BUN 19 H, Creatinine 0.81, Estim Creat Clear Calc 74.58, Est GFR (MDRD) Af Amer 91, Est GFR (MDRD) Non-Af 75, BUN/Creatinine Ratio 23.5 H, Glucose 128 H, Calcium 9.5 Microbiology: Microbiology 08/23/22 20:45 Mucosa - Nasopharyngeal Respiratory Panel (PCR) - Final 08/23/22 16:30 Nasal Secretion SARS-CoV-2 & FLU Antigen (Rapid) - Final ABG: ABG 09/05/22 14:23 Specimen Type ART Sample Site L Brach pH 7.48 H Bicarbonate Actual 28.5 H Total CO2 30 Base Excess 5 H O2 Saturation 93 L ABG pCO2 38.3 ABG pO2 62 L O2 Delivery Device Cannula Liter Flow 3.0 Discharge Plan Admission Admit Date/Time: 08/23/22 19:47 Primary Reason for Your Visit: Shortness of breath Attending Provider: Cherelle Almendarez Primary Care Provider: Chrystal Michel Consulting Providers: Samuel Goldsmith ; Allyssa Gardiner ; Yaw Reyna ; Nilsa Page ; Caesar Raza ; Erickson Fitzgerald ; Sebastian Rich ; Maricarmen Acevedo [employer] FUSER TENDER Discharge Orders/Prescriptions Prescriptions: Continued lorazepam [Ativan] 1 mg tablet 1 mg PO BID-TID PRN (Reason: Anxiety) hydroxyzine HCl 50 mg tablet 50 mg PO QHS buspirone 7.5 mg tablet 7.5 mg PO BID albuterol sulfate 90 mcg/actuation HFA aerosol inhaler 1 - 2 puff INHALATION Q6H PRN PRN (Reason: COPD) Qty: 2 6RF montelukast 10 mg tablet 10 mg PO QPM Qty: 90 3RF clopidogrel 75 MG tablet 75 mg PO DAILY Label Comments: STOPPED FRO SURGERY, DR INSTRUCTIONS atorvastatin 80 MG tablet 80 mg PO QHS metoprolol tartrate 25 MG tablet 12.5 mg PO BID duloxetine 60 MG capsule 60 mg PO BID furosemide 40 mg Tablet 60 mg PO DAILY ipratropium-albuterol 0.5 mg-3 mg(2.5 mg base)/3 mL Solution For Nebulization 3 ml INHALATION Q4H PRN (Reason: SOB) topiramate 25 mg tablet 50 mg PO QHS liothyronine 5 mcg tablet 25 mcg PO DAILY triamcinolone acetonide 0.1 % cream 1 applic TOPICAL BID levothyroxine 50 mcg tablet 50 mcg PO DAILY diclofenac sodium 75 mg tablet,delayed release (DR/EC) 75 mg PO BID hydroxychloroquine 200 mg tablet 200 mg PO BID Label Comments: TAKE 1 TABLET BY MOUTH TWICE DAILY pregabalin 50 mg capsule 50 mg PO DAILY Spiriva Respimat 2.5 mcg/actuation mist 2 inh INHALATION DAILY Referrals / Follow Up: Chrystal Michel DO [Primary Care Provider] - Within 2 Weeks Henry Page MD [Med Staff - Active Staff] - Within 2 Weeks (Call office on Thursday and make an appointment for a hospital follow-up. It is okay to see the nurse practitioner or Dr. Page whoever has first availability) Disposition Disposition (needs filled in before D/C Order can be placed): Home Health Service Charges/Coding Visit Charges Inpatient E&M: 73030 Disch Hosp >30min
--- NOTE | 2022-09-06 11:19 | PCM.DC.SUM ---
Providers Date of Admission: 08/23/22 Date of Discharge: 09/06/22 Primary Care Physician: Dr. 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 Routine Consulting Provider: Pulmonary Medicine [place] Reason for Consult: acute on chr combined resp failure, copder EMERGENT Consult: No MD Notified: Yes Date Notified: 08/26/22 Time Notified: 10:08 Method of Notification: Text Reason For Visit: ACUTE HYPOXEMIC RESPIRATORY FAILURE Diagnosis Discharge Diagnosis (1) Acute respiratory failure with hypoxia: Status: Acute Code(s): J96.01 - Acute respiratory failure with hypoxia (2) Hypokalemia: Status: Resolved Code(s): E87.6 - Hypokalemia (3) Toxic metabolic encephalopathy: Status: Acute Code(s): G92.8 - Other toxic encephalopathy (4) Hyponatremia: Status: Acute Code(s): E87.1 - Hypo-osmolality and hyponatremia Medications at Discharge Home Medications atorvastatin 80 mg tablet 80 mg PO QHS cholesterol 06/01/13 clopidogrel 75 mg tablet 75 mg PO DAILY anti platelet 06/01/13 metoprolol tartrate 25 mg tablet 12.5 mg PO BID blood pressure 06/01/13 lorazepam 1 mg tablet (Ativan) 1 mg PO BID-TID PRN Anxiety 11/17/18 hydroxyzine HCl 50 mg tablet 50 mg PO QHS 12/01/18 duloxetine 60 mg capsule,delayed release 60 mg PO BID 06/19/20 albuterol sulfate 90 mcg/actuation aerosol inhaler 1 - 2 puff inhalation Q6H PRN PRN COPD #2 device 06/03/22 buspirone 7.5 mg tablet 7.5 mg PO BID 06/03/22 montelukast 10 mg tablet 10 mg PO QPM #90 tabs 06/03/22 diclofenac sodium 75 mg tablet,delayed release 75 mg PO BID 08/23/22 furosemide 40 mg tablet 60 mg PO DAILY 08/23/22 hydroxychloroquine 200 mg tablet 200 mg PO BID 08/23/22 ipratropium 0.5 mg-albuterol 3 mg (2.5 mg base)/3 mL nebulization soln 3 ml inhalation Q4H PRN SOB 08/23/22 levothyroxine 50 mcg tablet 50 mcg PO DAILY 08/23/22 liothyronine 5 mcg tablet 25 mcg PO DAILY 08/23/22 pregabalin 50 mg capsule 50 mg PO DAILY 08/23/22 tiotropium bromide 2.5 mcg/actuation mist for inhalation (Spiriva Respimat) 2 inh inhalation DAILY 08/23/22 topiramate 25 mg tablet 50 mg PO QHS 08/23/22 triamcinolone acetonide 0.1 % topical cream 1 applic topical BID 08/23/22 Hospital Course Operations None Procedures - (CT of chest/CTA of chest) Summary of Care Provided Minutes Spent on Discharge: 38 Hospital Course: Mrs. Owen is a 67-year-old white female who presented to the emergency department at [facility] on 08/23/2022 with shortness of breath. She had a known history of COPD and is on home triple therapy with nightly CPAP and a 4 L bleed. Prior to admission she had been having a about a 1 month history of worsening shortness of breath above her baseline but significantly worsened on the day of presentation. She indicated she typically was using her albuterol inhaler which helps her but on the day of presentation her inhaler was not helpful. 3 weeks prior to presentation she completed a prednisone taper and a course of Levaquin. This did not improve her symptoms. She indicated she was having a cough that was occasionally productive of white sputum. Her oxygen saturation was initially 83% on room air and she was placed on supplemental oxygen. That need to be uptitrated when her oxygen saturations dropped in the 70s and she was placed on BiPAP and admitted to the ICU. She was placed on antibiotics, steroids, and aggressive pulmonary toilet. She unfortunately developed significant delirium and confusion on her steroids and these had to be discontinued. An antibiotic course was completed however no infectious etiology was ever identified. A work-up for thromboembolic disease was pursued since she seems somewhat refractory to improvement on basic therapy for acute exacerbation of COPD and had a negative CTA of her chest. CT did show emphysematous changes along with bullae and faint groundglass opacities in the right upper lobe. She was intermittently diuresed which did seem to improve her respiratory status. Her respiratory status did considerably fluctuate however and she was on and off BiPAP for several days. We did pursue an autoimmune work-up with her refractoriness and this was negative. She finally stabilized on 09/03/2022 and was able to be weaned to 6 L. She then was weaned to 4 L the following day and we were able to transfer her out of the ICU. She is remained stable on 4 L. She will need oxygen during the day and at night. She is to continue her CPAP at night. No medication changes were made and she is to go back on her home inhalers as well as her home Lasix dose. She already follows with pulmonary medicine is to call on Thursday to make an appointment to be seen within the next 2 weeks for hospital follow-up. She was seen by therapy services and they did recommend placement for some strengthening. 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 Patient felt that she was able to go home but was excepting of home health services and these were set up prior to discharge. She was able to be discharged home in stable condition on 09/06/2022. I do suspect her risk for readmission is extremely high which is why I want close follow-up as an outpatient. I have asked her to follow-up with her primary care physician within the next week. Discharge diagnoses: Acute hypoxic respiratory failure Leukocytosis Hyponatremia History of RAUL Hypothyroidism COPD CAD Hypertension Hyperlipidemia Anxiety Depression Physical Exam Narrative Patient states she is feeling good and anxious to go home. Again she does not want any placement but is excepting of home health at discharge which has been set up. Const alert, oriented x3, no apparent distress and well nourished Constitutional Narrative: Obese, upper middle-aged, white female, appears older than stated age, sitting up in bed on 4 L nasal cannula, watching television, appears comfortable with no signs of respiratory distress, nursing at bedside General Appearance: cooperative, comfortable, well kempt and well developed Orientation / Consciousness: awake, oriented to person, oriented to place and oriented to time Exam Limitations: no limitations Nutritional Appearance: obese HEENT normocephalic, head/scalp atraumatic and moist oral mucous membranes HEENT Narrative: Mild hearing loss, Mallampati 3, no thrush, dentition is fair Eyes PERRL, EOMs intact bilaterally and conjunctivae normal Eyes Narrative: No scleral icterus Neck no lymphadenopathy, supple and no JVD Resp normal respiratory effort, no retractions, no use of accessory muscles and No clear to auscultation bilaterally Resp Narrative: Clear but diminished Auscultation: Negative for rales, rhonchi or wheezes Cardio regular rate, regular rhythm, S1 normal heart sound, S2 normal heart sound, no murmurs, no rub, no gallops and no clicks GI normal to inspection, nondistended, normoactive bowel sounds and soft to palpation Extremity no clubbing, cyanosis or edema Extremity Narrative: Pedal pulses are 2+ on the left, BKA on the right Skin no rashes or lesions noted, no wounds, skin turgor normal and no jaundice Neuro oriented x3, CN's II-XII intact bilaterally, moves all extremities and no focal motor deficits Speech: speech normal Psych affect normal Psych Narrative: Very pleasant, interacts normally Weight / BMI Weight Weight: 70.1 kg Body Mass Index (BMI) 33.4 ABG / Lab / Microbiology Data Result Diagrams: 09/06/22 07:15 09/06/22 07:15 Laboratory: Laboratory Results - last 24 hr 09/06/22 07:15: WBC 10.9, RBC 3.72 L, Hgb 9.7 L, Hct 31.6 L, MCV 84.9, MCH 26.1 L, MCHC 30.7 L, RDW Std Deviation 44.1 H, RDW Coeff of Genaro 14.4, Plt Count 319, MPV 10.9, Immature Gran % (Auto) 0.500, Neut % (Auto) 66.8, Lymph % (Auto) 20.2, [place] % (Auto) 9.5, Eos % (Auto) 2.7, Baso % (Auto) 0.3, Absolute Neuts (auto) 7.3, Absolute Lymphs (auto) 2.19, Nucleated RBC % 0 09/06/22 07:15: Sodium 138, Potassium 3.6, Chloride 103, Carbon Dioxide 29.0, Anion Gap 6, BUN 19 H, Creatinine 0.81, Estim Creat Clear Calc 74.58, Est GFR (MDRD) Af Amer 91, Est GFR (MDRD) Non-Af 75, BUN/Creatinine Ratio 23.5 H, Glucose 128 H, Calcium 9.5 Microbiology: Microbiology 08/23/22 20:45 Mucosa - Nasopharyngeal Respiratory Panel (PCR) - Final 08/23/22 16:30 Nasal Secretion SARS-CoV-2 & FLU Antigen (Rapid) - Final ABG: ABG 09/05/22 14:23 Specimen Type ART Sample Site L Brach pH 7.48 H Bicarbonate Actual 28.5 H Total CO2 30 Base Excess 5 H O2 Saturation 93 L ABG pCO2 38.3 ABG pO2 62 L O2 Delivery Device Cannula Liter Flow 3.0 D/C Instructions Discharge Diet: Low fat / Low cholesterol (2 L fluid restriction) and 2000 mg Sodium Diet Discharge Activity: Return to Normal Activity Meaningful Use Info Meaningful Use Diagnoses (Choose all that apply): None applicable Discharge Plan Admission Admit Date/Time: 08/23/22 19:47 Primary Reason for Your Visit: Shortness of breath Attending Provider: Cherelle Almendarez Primary Care Provider: Chrystal Michel Consulting Providers: Samuel Goldsmith ; Allyssa Gardiner ; Yaw Reyna ; Henry Page ; Caesar Raza ; Erickson Fitzgerald ; Sebastian Rich ; Maricarmen Acevedo INVERFORM MACHINE OPERATOR Instructions Additional Instructions / Restrictions: 1. You will need oxygen at all times at the time of discharge at 4 L and continue your CPAP at night with a 4 L Discharge Orders/Prescriptions Prescriptions: Continued lorazepam [Ativan] 1 mg tablet 1 mg PO BID-TID PRN (Reason: Anxiety) hydroxyzine HCl 50 mg tablet 50 mg PO QHS buspirone 7.5 mg tablet 7.5 mg PO BID albuterol sulfate 90 mcg/actuation HFA aerosol inhaler 1 - 2 puff INHALATION Q6H PRN PRN (Reason: COPD) Qty: 2 6RF montelukast 10 mg tablet 10 mg PO QPM Qty: 90 3RF clopidogrel 75 MG tablet 75 mg PO DAILY Label Comments: STOPPED FRO SURGERY, DR INSTRUCTIONS atorvastatin 80 MG tablet 80 mg PO QHS metoprolol tartrate 25 MG tablet 12.5 mg PO BID duloxetine 60 MG capsule 60 mg PO BID furosemide 40 mg Tablet 60 mg PO DAILY ipratropium-albuterol 0.5 mg-3 mg(2.5 mg base)/3 mL Solution For Nebulization 3 ml INHALATION Q4H PRN (Reason: SOB) topiramate 25 mg tablet 50 mg PO QHS liothyronine 5 mcg tablet 25 mcg PO DAILY triamcinolone acetonide 0.1 % cream 1 applic TOPICAL BID levothyroxine 50 mcg tablet 50 mcg PO DAILY diclofenac sodium 75 mg tablet,delayed release (DR/EC) 75 mg PO BID hydroxychloroquine 200 mg tablet 200 mg PO BID Label Comments: TAKE 1 TABLET BY MOUTH TWICE DAILY pregabalin 50 mg capsule 50 mg PO DAILY Spiriva Respimat 2.5 mcg/actuation mist 2 inh INHALATION DAILY Referrals / Follow Up: Henry Page MD [Med Staff - Active Staff] - Within 2 Weeks (Call office on Thursday and make an appointment for a hospital follow-up. It is okay to see the nurse practitioner or Dr. Page whoever has first availability) Chrystal Michel DO [Primary Care Provider] - Within 2 Weeks Disposition Disposition (needs filled in before D/C Order can be placed): Home Health Service Charges/Coding Visit Charges Inpatient E&M: 99207 Disch Hosp >30min
[2022-09-08 08:59] LABS: Pathologist Review Reviewed
== END 2022-09-06 16:21 | disposition home health service (06) | DRG 189 ==
LOC: ED 19:29 → PCU 19:53 → ICU 08-28 02:00 → PCU 09-05 17:49
PROVIDERS: Family Medicine; Internal Medicine; Internal Medicine Critical Care Medicine; Admitting Provider Hospitalist; Emergency Provider Emergency Medicine; PCP Family Medicine; Visit Provider Internal Medicine
DX: J96.21 Acute and chronic respiratory failure with hypoxia (principal); N17.0 Acute kidney failure with tubular necrosis; G93.41 Metabolic encephalopathy; G92.8 Other toxic encephalopathy; J18.9 Pneumonia, unspecified organism; I13.0 Hypertensive heart and chronic kidney disease with heart failure and stage 1 through stage 4 chronic kidney disease, or unspecified chronic kidney disease; E87.0 Hyperosmolality and hypernatremia; E87.1 Hypo-osmolality and hyponatremia; I50.32 Chronic diastolic (congestive) heart failure; J44.1 Chronic obstructive pulmonary disease with (acute) exacerbation; J44.0 Chronic obstructive pulmonary disease with (acute) lower respiratory infection; N18.31 Chronic kidney disease, stage 3a; Z89.511 Acquired absence of right leg below knee; E89.0 Postprocedural hypothyroidism; E87.6 Hypokalemia; G47.33 Obstructive sleep apnea (adult) (pediatric); I25.10 Atherosclerotic heart disease of native coronary artery without angina pectoris; M79.7 Fibromyalgia; E78.5 Hyperlipidemia, unspecified; D72.829 Elevated white blood cell count, unspecified; F17.210 Nicotine dependence, cigarettes, uncomplicated; Z20.822 Contact with and (suspected) exposure to COVID-19; T42.4X5A Adverse effect of benzodiazepines, initial encounter; T43.595A Adverse effect of other antipsychotics and neuroleptics, initial encounter; E07.81 Sick-euthyroid syndrome; Z66 Do not resuscitate; F41.0 Panic disorder [episodic paroxysmal anxiety]; F32.A Depression, unspecified; E66.9 Obesity, unspecified; Z68.32 Body mass index [BMI] 32.0-32.9, adult; Z79.02 Long term (current) use of antithrombotics/antiplatelets; Z79.890 Hormone replacement therapy; Z79.899 Other long term (current) drug therapy; Z95.5 Presence of coronary angioplasty implant and graft; Z86.73 Personal history of transient ischemic attack (TIA), and cerebral infarction without residual deficits; T38.0X5A Adverse effect of glucocorticoids and synthetic analogues, initial encounter
CPT/HCPCS: 36415; 36600; 70450; 71045; 71046; 71250; 71275; 78597; 80048; 80053; 80076; 82803; 82962; 83605; 83735; 83880; 84100; 84145; 84439; 84443; 84481; 84484; 85025; 85379; 85652; 86140; 86225; 86235; 86256; 86431; 87428; 87633; 92507; 92526; 92610; 93005; 93306; 93308; 93970; 94002; 94003; 94640; 94660; 94762; 97110; 97162; 97166; 97530; 97535; 99252; 99285; 99406; A9540; J7040; Q9967; A4216; G0463; J1940; J2405

== ENCOUNTER → 2022-09-23 | Outpatient (CLI) | payer MEDICARE, SELFPAY ==
[2022-09-23 10:10] LABS: Absolute Lymphocyte Count 3.32 X10^3/uL (0.83-4.51); Absolute Neutrophil Count 7.8 X10^3/uL (2.0-7.7); Basophil# 0.05 X10^3/uL; Basophil% 0.4 % (0-1); Eosinophil# 0.37 X10^3/uL; Hemoglobin 9.6 g/dL (12.0-15.0); Lymphocyte # 3.32 X10^3/ul (0.83-4.51); Lymphocyte % 26.8 % (19-41); Mean Corpuscular Hgb 25.7 pg (27.0-32.0); Mean Corpuscular Volume 85.8 fL (81-99); Mean Platelet Vol. 9.8 fl (6.2-12.0); Monocyte# 0.73 X10^3/uL; Monocyte% 5.9 % (0-10); NRBC Flagged by Analyzer 0 % (0-5); Neutrophil # 7.83 X10^3/uL (2.7-7.7); Neutrophil % 63.3 % (47-70); Platelet Count 335 K/mm3 (150-450); RBC Distribution Width CV 16.2 % (11.6-14.6); RBC Distribution Width SD 49.1 fl (35.1-43.9); Red Blood Count 3.73 M/mm3 (4.2-5.4); White Blood Count 12.4 K/mm3 (4.4-11.0)
[2022-09-23 10:21] LABS: ALB/GLOB Ratio 0.8 RATIO (0.9-2.4); AST(SGOT) 14 U/L (15-37); Alanine Aminotransfer ALT/SGPT 23 U/L (13-56); Albumin, Serum 2.9 g/dL (3.2-5.0); Alkaline Phosphatase 74 U/L (45-117); Anion Gap 8 (5-15); BUN 31 mg/dL (7-18); BUN/Creat Ratio 23.8 RATIO (10-20); Calcium,Total 8.1 mg/dL (8.5-10.1); Chloride 103 mmol/L (98-107); EST Glomerular Filtration Rate 43 mL/min (>60); Est Glom Filt Rate - Afr Amer 53 mL/min (>60); Globulin 3.8 g/dL (2.2-4.2); Glucose 93 mg/dL (74-106); Potassium 3.8 mmol/L (3.5-5.1); Protein, Total 6.7 g/dL (6.4-8.2); Sodium Level 139 mmol/L (136-145)
== END | disposition home or self-care (01) ==
LOC: MTLAB 08:05
PROVIDERS: PCP Family Medicine; Referring Provider Internal Medicine Rheumatology; Visit Provider Internal Medicine Rheumatology
DX: M06.4 Inflammatory polyarthropathy (principal); Z79.899 Other long term (current) drug therapy
CPT/HCPCS: 36415; 80053; 85025

== ENCOUNTER → 2022-10-22 | Outpatient (CLI) | payer MEDICARE, SELFPAY ==
[2022-10-22 14:14] LABS: ALB/GLOB Ratio 0.7 RATIO (0.9-2.4); AST(SGOT) 14 U/L (15-37); Alanine Aminotransfer ALT/SGPT 11 U/L (13-56); Albumin, Serum 2.9 g/dL (3.2-5.0); Alkaline Phosphatase 97 U/L (45-117); Anion Gap 4 (5-15); BUN 26 mg/dL (7-18); BUN/Creat Ratio 21.1 RATIO (10-20); Calcium,Total 8.5 mg/dL (8.5-10.1); Chloride 112 mmol/L (98-107); Creatinine, Serum 1.23 mg/dL (0.55-1.02); EST Glomerular Filtration Rate 46 mL/min (>60); Est Glom Filt Rate - Afr Amer 56 mL/min (>60); Free T3 2.3 pg/mL (2.18-3.98); Globulin 4.2 g/dL (2.2-4.2); Glucose 77 mg/dL (74-106); Potassium 4.6 mmol/L (3.5-5.1); Protein, Total 7.1 g/dL (6.4-8.2); Sodium Level 143 mmol/L (136-145); T4 Free Direct 0.49 ng/dL (0.76-1.46); Thyroid Stim Hormone (TSH) 0.05 uIU/mL (0.358-3.74)
== END | disposition home or self-care (01) ==
LOC: BFHLAB 11:53
PROVIDERS: PCP Family Medicine; Referring Provider Family Medicine; Visit Provider Family Medicine
DX: E03.9 Hypothyroidism, unspecified (principal); Z51.81 Encounter for therapeutic drug level monitoring
CPT/HCPCS: 36415; 80053; 84439; 84443; 84481

== ENCOUNTER → 2022-10-31 | Outpatient (CLI) | payer MEDICARE, SELFPAY ==
--- NOTE | 2022-10-31 06:54 | CT_ITS ---
STUDY: LOW DOSE CT LUNG CANCER SCREENING REASON FOR EXAM: Female, 67 years old. Patient smoked 1 pack per day for 40 years. RADIATION DOSAGE (If Supplied By Facility): CTDIvol = ( 3.02 ) mGy, DLP = ( 100.43 ) mGycm TECHNIQUE: No contrast was administered. Low dose technique was utilized (average mAS-38 and kVp 120). 1.25 mm axial source images with a slice interval of 1.25-mm were reconstructed in lung windows. 2.5 mm axial source images with a slice interval of 2.5-mm were reconstructed in lung windows. 5.0 mm axial source images with a slice interval of 5.0-mm were reconstructed in soft tissue windows. COMPARISON: Comparison is made with prior study dated September 02, 2022. NODULES: 1 mm noncalcified nodule in the lateral aspect of the right upper lobe as seen on axial image #44. Emphysema: Mild bullous changes seen in the upper lobes slightly more prominent on the right side. Mild degree of reticular nodular changes seen in the anterior aspect of the right upper lobe suggestive of scarring. Stable linear scarring in the medial aspect of the right middle lobe as well as scarring in the right lower WITH evidence of bronchiectasis. Bullous changes in the left lower lobe. Endobronchial lesion: Unremarkable Aorta: Atherosclerotic plaque formation. CORONARY ARTERIES: Coronary artery calcification is seen. Heart: Unremarkable Pulmonary artery: Unremarkable Mediastinal nodes: Unremarkable Other chest and abdominal findings: CT/Low Dose CT Lung Screening IMPRESSION: Lung-RADS category 2 - Continue annual screening with LDCT in 12 months. IMPORTANT NOTES FOR USE: ACR Lung-RADS Version 1.1 Assessment Categories Release Date: 2018 Category: Coded 0-4 bases on nodule(s) with highest degree of suspicion. Negative screen is defined as categories 1 and 2; a positive screen is defined as categories 3 and 4. Category 3 and 4A nodules that are unchanged on interval CT should be coded as category 2, and individuals returned to screening in 12 months. Category 4X: Category 3 or 4 nodules with additional imaging findings that increase the suspicion of lung cancer, such as spiculation, GGN that doubles in size in 1 year, enlarged lymph notes, etc. Category Modifiers: S (significant finding unrelated to lung cancer) Electronically Signed: Luis Antonio Mota MD at 14:31 EDT ,
== END | disposition home or self-care (01) ==
LOC: CT 06:51
PROVIDERS: PCP Family Medicine; Referring Provider Nurse Practitioner Acute Care; Visit Provider Nurse Practitioner Acute Care
DX: F17.210 Nicotine dependence, cigarettes, uncomplicated (principal)
CPT/HCPCS: 71271

== ENCOUNTER → 2022-12-18 | Outpatient (CLI) | payer MEDICARE, SELFPAY ==
--- NOTE | 2022-12-18 09:31 | RAD_ITS ---
STUDY: X-RAY - CERVICAL SPINE REASON FOR EXAM: Female, 67 years old. Fall. Neck pain. TECHNIQUE: 6 view(s) of the cervical spine were obtained. COMPARISON: Cervical spine x-rays dated October 25, 2019. FINDINGS: Mild osteopenia. Normal anterior atlantoaxial articulation. Normal odontoid process. Slight reversal of the normal lordotic curve. Moderate stable diffuse uncovertebral and facet sclerosis. Intervertebral disc space narrowing at C4-5, C5-6 and C6-7, unchanged from prior study. Minimal anterior bony neural foraminal encroachment bilaterally at C4-5 and C5-C6, all unchanged. Minimal left carotid calcification. RAD/Cerv Spine 4 or 5 Views IMPRESSION: Stable osteopenia with mild lower cervical spondylosis. No acute abnormality or erosive changes. Electronically Signed: Efra Griffith MD at 9:25 EDT ,
[2022-12-18 10:26] LABS: Absolute Lymphocyte Count 3.16 X10^3/uL (0.83-4.51); Absolute Neutrophil Count 3.8 X10^3/uL (2.0-7.7); Basophil# 0.07 X10^3/uL; Basophil% 0.9 % (0-1); Eosinophil# 0.38 X10^3/uL; Eosinophils% 4.8 % (0-5); Hematocrit 33.4 % (37-47); Hemoglobin 9.8 g/dL (12.0-15.0); Lymphocyte # 3.16 X10^3/ul (0.83-4.51); Lymphocyte % 40.3 % (19-41); Mean Corp Hgb Conc 29.3 g/dL (32-36); Mean Corpuscular Hgb 25.3 pg (27.0-32.0); Mean Corpuscular Volume 86.1 fL (81-99); Mean Platelet Vol. 9.7 fl (6.2-12.0); Monocyte# 0.47 X10^3/uL; NRBC Flagged by Analyzer 0 % (0-5); Neutrophil # 3.75 X10^3/uL (2.7-7.7); Neutrophil % 47.7 % (47-70); Platelet Count 461 K/mm3 (150-450); RBC Distribution Width CV 19.9 % (11.6-14.6); RBC Distribution Width SD 62.5 fl (35.1-43.9); Red Blood Count 3.88 M/mm3 (4.2-5.4); White Blood Count 7.9 K/mm3 (4.4-11.0)
[2022-12-18 11:16] LABS: ALB/GLOB Ratio 0.8 RATIO (0.9-2.4); AST(SGOT) 14 U/L (15-37); Alanine Aminotransfer ALT/SGPT 15 U/L (13-56); Alkaline Phosphatase 112 U/L (45-117); Anion Gap 5 (5-15); BUN 19 mg/dL (7-18); BUN/Creat Ratio 17.6 RATIO (10-20); Calcium,Total 8.6 mg/dL (8.5-10.1); Chloride 110 mmol/L (98-107); Creatinine, Serum 1.08 mg/dL (0.55-1.02); EST Glomerular Filtration Rate 54 mL/min (>60); Est Glom Filt Rate - Afr Amer 65 mL/min (>60); Globulin 3.8 g/dL (2.2-4.2); Glucose 80 mg/dL (74-106); Magnesium 2.3 mg/dL (1.6-2.6); Potassium 3.8 mmol/L (3.5-5.1); Protein, Total 6.8 g/dL (6.4-8.2); Sodium Level 143 mmol/L (136-145); T4 Free Direct 0.46 ng/dL (0.76-1.46)
== END | disposition home or self-care (01) ==
LOC: MTLAB 09:29
PROVIDERS: PCP Family Medicine; Referring Provider Internal Medicine Rheumatology; Visit Provider Internal Medicine Rheumatology
DX: M06.4 Inflammatory polyarthropathy (principal); M79.7 Fibromyalgia; M54.2 Cervicalgia; Z79.899 Other long term (current) drug therapy
CPT/HCPCS: 36415; 72050; 80053; 83735; 84439; 84443; 84481; 85025

== ENCOUNTER → 2023-01-01 | Outpatient (CLI) | payer MEDICARE, SELFPAY ==
--- NOTE | 2023-01-02 08:33 | PFT ---
INTRODUCTION: The patient is a 67-year-old female who presents for pulmonary function studies secondary to a diagnosis of respiratory failure. Respiratory therapy reported good patient effort. Bronchodilators were used during testing. INTERPRETATION: Forced expiration spirometry demonstrates the presence of a moderately severe large airways obstructive ventilatory defect. There was no significant response to aerosolized bronchodilators. Spirograms are of good quality but do not plateau indicating slow emptying of the lungs. Body plethysmography was performed and revealed lung volumes to be within normal limits. Diffusing capacity by single breath CO is severely reduced at 33% of predicted. IMPRESSION: Irreversible moderately severe large airways obstructive ventilatory defect with disproportionate severe reduction in diffusion capacity.
== END | disposition home or self-care (01) ==
LOC: PSN 09:18
PROVIDERS: PCP Family Medicine; Referring Provider Internal Medicine Critical Care Medicine; Visit Provider Internal Medicine Critical Care Medicine
DX: J96.11 Chronic respiratory failure with hypoxia (principal)
CPT/HCPCS: 94060; 94726; 94729

== ENCOUNTER → 2023-01-21 | Outpatient (CLI) | payer MEDICARE, SELFPAY ==
--- NOTE | 2023-01-21 13:09 | RAD_ITS ---
STUDY: X-RAY - LEFT TIBIA AND FIBULA REASON FOR EXAM: Female, 67 years old. FALL/INJURY TECHNIQUE: 2 view(s) of the tibia and fibula were obtained. COMPARISON: None. FINDINGS: Normal visualized tibia. Acute, minimally displaced spiral fracture of the distal fibula with soft tissue swelling. Age consistent arthritic changes in the left knee and ankle joint. RAD/Tibia & Fibula 2 Views IMPRESSION: Acute, minimally displaced spiral fracture in the distal fibula with soft tissue swelling Electronically Signed: Jc Day MD at 13:58 EDT ,
--- NOTE | 2023-01-21 13:09 | RAD_ITS ---
STUDY: X-RAY - FACIAL BONES REASON FOR STUDY: Female, 67 years old. FALL/INJURY TECHNIQUE: 3 view(s) of the facial bones. COMPARISON: None. FINDINGS: Normal bilateral frontozygomatic and zygomatic-temporal arches. Normal bilateral medial and inferior orbital benjamin. Normal bilateral orbits. Normal visualized nasal bones. Normal anterior nasal spine. The remaining visualized osseous structures are normal. Normal visualized paranasal sinuses. RAD/Facial Bones min 3 Views IMPRESSION: No abnormal findings Electronically Signed: Jc Day MD at 13:56 EDT ,
--- NOTE | 2023-01-21 13:15 | RAD_ITS ---
STUDY: X-RAY - LEFT ANKLE REASON FOR EXAM: Female, 67 years old. FALL/INJURY TECHNIQUE: 3 view(s) of the ankle. COMPARISON: None. FINDINGS: There is an acute, minimally displaced osteochondral fracture in the distal fibula with associated soft tissue swelling. Normal visualized distal tibia. Normal medial and lateral malleoli. Normal tibiotalar articulation and ankle mortise. Normal visualized talus. Small calcaneal spurs The visualized subtalar, talonavicular, calcaneocuboid and tarsal articulations are normal. The soft tissue structures are unremarkable. RAD/Ankle min 3 Views IMPRESSION: Acute, minimally displaced, osteochondral spiral fracture of the distal fibula with soft tissue swelling Calcaneal spurs Electronically Signed: Jc Day MD at 13:57 EDT ,
== END | disposition home or self-care (01) ==
LOC: MTRAD 13:08
PROVIDERS: PCP Family Medicine; Referring Provider Family Medicine; Visit Provider Family Medicine
DX: M25.572 Pain in left ankle and joints of left foot (principal); R22.0 Localized swelling, mass and lump, head; R20.0 Anesthesia of skin
CPT/HCPCS: 70150; 73590; 73610

== ENCOUNTER → 2023-02-17 | Outpatient (CLI) | payer MEDICARE, SELFPAY ==
--- NOTE | 2023-02-17 07:48 | CT_ITS ---
STUDY: CT BRAIN WITHOUT CONTRAST REASON FOR EXAM: Female, 67 years old. FALL FACIAL NUMBNESS RADIATION DOSAGE (If Supplied By Facility): CTDIvol = ( 44.99 ) mGy, DLP = ( 745.49 ) mGycm TECHNIQUE: Transaxial CT imaging of the brain was performed without administration of intravenous contrast material. Individualized dose optimization techniques were used for this CT. COMPARISON: 08/28/2022 FINDINGS: Normal soft tissue structures. Normal calvarium. Normal size ventricles and extra-axial spaces for the patient''s age. Normal white matter tracts of the cerebral hemispheres. Normal basal ganglia and thalami. Normal brainstem. Normal cerebellum. There is no intracranial hemorrhage. There are no findings of an acute ischemic infarction. Normal visualized paranasal sinuses. CT/Brain/Head without Contrast IMPRESSION: Age consistent changes, no acute findings No interval change Electronically Signed: Jc Day MD at 11:58 EDT ,
== END | disposition home or self-care (01) ==
LOC: CT 07:47
PROVIDERS: PCP Family Medicine; Referring Provider Family Medicine; Visit Provider Family Medicine
DX: R20.0 Anesthesia of skin (principal); W19.XXXA Unspecified fall, initial encounter
CPT/HCPCS: 70450

== ENCOUNTER 2023-03-29 13:43 | Inpatient (IN) | payer MEDICARE, SELFPAY ==
[2023-03-29] VITALS (12 sets, daily range): BP systolic 117–158; BP diastolic 63–98; PULSE 83–94; RESP 18–19; TEMP 36.1–37; O2SAT 83–97; BMI 68.6; BMI 28.4
--- NOTE | 2023-03-29 14:09 | CT_ITS ---
STUDY: CT BRAIN WITHOUT CONTRAST REASON FOR EXAM: Female, 67 years old. altered mental status Individualized dose optimization techniques were used for this CT. TECHNIQUE: Transaxial CT imaging of the brain was performed without administration of intravenous contrast material. COMPARISON: 02/17/2023 FINDINGS: There are calcifications noted in the distal vertebral arteries. There are calcifications noted in the cavernous carotid arteries. This is consistent for atherosclerotic disease. Normal calvarium. Normal soft tissues. There is mild cerebral atrophy with widening of the extra-axial spaces and ventricular dilatation. There are areas of decreased attenuation within the white matter tracts of the supratentorial brain, consistent with microvascular disease changes. Normal basal ganglia and thalami. Normal brainstem. There is mild cerebellar atrophy. There is no intracranial hemorrhage. There are no findings of an acute ischemic infarction. Normal visualized paranasal sinuses. ASPECTS Score for Acute Strokes: 02/03 CT/Brain/Head without Contrast IMPRESSION: There are no acute findings. Chronic involutional changes of the brain. Electronically Signed: Trev Balbuena MD at 15:37 EST ,
--- NOTE | 2023-03-29 14:09 | EKG12_ITS ---
Test Reason : CONFUSION Blood Pressure : / mmHG Vent. Rate : 091 BPM Atrial Rate : 000 BPM P-R Int : 000 ms QRS Dur : 088 ms QT Int : 422 ms P-R-T Axes : 000 063 076 degrees QTc Int : 519 ms Accelerated Junctional rhythm Nonspecific ST and T wave abnormality Abnormal ECG Confirmed by MIKE HIRSCH, BIENVENIDO ([id number]), digital editor DAKOTAH DELVALLE ([id number]) on 03/30/2023 10:57:07 AM Referred By: Confirmed By:BIENVENIDO MCKEON MD
[2023-03-29 14:36] LABS: Bacteria 0 SEEN /hpf (None Seen); Mucous, Urine 0 SEEN /hpf (<or=2+); Red Blood Cells-Urine 0 SEEN /hpf (0-5)
[2023-03-29 14:41] LABS: Absolute Lymphocyte Count 2.74 X10^3/uL (0.83-4.51); Absolute Neutrophil Count 12.9 X10^3/uL (2.0-7.7); Basophil# 0.06 X10^3/uL; Basophil% 0.3 % (0-1); Eosinophils% 1.2 % (0-5); Hematocrit 33.7 % (37-47); Hemoglobin 10.3 g/dL (12.0-15.0); Lymphocyte # 2.74 X10^3/ul (0.83-4.51); Lymphocyte % 15.9 % (19-41); Mean Corp Hgb Conc 30.6 g/dL (32-36); Mean Corpuscular Hgb 24.9 pg (27.0-32.0); Mean Corpuscular Volume 81.4 fL (81-99); Mean Platelet Vol. 9.4 fl (6.2-12.0); Monocyte# 1.21 X10^3/uL; NRBC Flagged by Analyzer 0 % (0-5); Neutrophil # 12.93 X10^3/uL (2.7-7.7); Platelet Count 557 K/mm3 (150-450); RBC Distribution Width CV 17.2 % (11.6-14.6); RBC Distribution Width SD 51.5 fl (35.1-43.9); Red Blood Count 4.14 M/mm3 (4.2-5.4); White Blood Count 17.3 K/mm3 (4.4-11.0)
[2023-03-29 14:44] LABS: Color, Urine Yellow (Yellow); Glucose, Dipstick Normal (Normal); Ketone-Dipstick 5 mg/dl (Negative); Leukocyte Esterase-Dipstick 25 /ul (Negative); Nitrite-Dipstick Negative (Negative); Occult Blood-Urine Negative /ul (Negative); Protein-Dipstick 15 mg/dl (Negative); Specific Gravity, Urine 1.025 (1.002-1.030); Urine Clarity Clear (Clear); Urine Urobilinogen Normal (Normal)
[2023-03-29 14:55] LABS: Urine Bilirubin Dipstick 1 mg/dL (Negative)
--- NOTE | 2023-03-29 15:03 | RAD_ITS ---
EXAM: XR CHEST, 1 VIEW CLINICAL INDICATION: shortness of breath TECHNIQUE: Frontal view of the chest. COMPARISON: By [id number] FINDINGS: LUNGS AND PLEURAL SPACES: Small bilateral pleural effusions. These findings appear worse. No pneumothorax. HEART: Unremarkable. Cardiac silhouette not enlarged. MEDIASTINUM: Central airways and mediastinal contour are unremarkable. BONES/JOINTS: Thoracolumbar spinal fixation hardware noted. No acute fracture. SOFT TISSUES: Unremarkable. RAD/Chest 1 View (Portable) IMPRESSION: Small bilateral pleural effusions. These findings appear worse. Electronically Signed: Trev Balbuena MD at 15:20 EST ,
[2023-03-29 15:07] LABS: Base Excess -2 mmol/L (-2 to +2); Bicarbonate 22.9 mmol/L (22-26); Blood Gas Specimen Type ART; Mode Not entered; O2 Delivery Device Not entered; PO2 71 mmHG (75-100); SITE L Brach; SO2 94 % (95-99); Total Carbon Dioxide 24 mmol/L; pCO2 39.3 mmHg (35-45); pH 7.37 (7.35-7.45)
[2023-03-29 15:08] LABS: ALB/GLOB Ratio 0.6 RATIO (0.9-2.4); AST(SGOT) 9 U/L (15-37); Alanine Aminotransfer ALT/SGPT 11 U/L (13-56); Albumin, Serum 2.9 g/dL (3.2-5.0); Alkaline Phosphatase 94 U/L (45-117); Anion Gap 5 (5-15); BUN 38 mg/dL (7-18); BUN/Creat Ratio 18.4 RATIO (10-20); Calcium,Total 8.2 mg/dL (8.5-10.1); Chloride 109 mmol/L (98-107); Creatinine, Serum 2.06 mg/dL (0.55-1.02); EST Glomerular Filtration Rate 26 mL/min (>60); Est Glom Filt Rate - Afr Amer 31 mL/min (>60); Estimated Creatinine Clearance 60.37 ml/min; Globulin 4.5 g/dL (2.2-4.2); Glucose 123 mg/dL (74-106); Potassium 3.9 mmol/L (3.5-5.1); Protein, Total 7.4 g/dL (6.4-8.2); Sodium Level 141 mmol/L (136-145); Troponin-I HS 7 pg/mL (3.0-54.0)
[2023-03-29 15:11] LABS: Squamous Epithelial Cells - UA 0-5 SEEN /hpf (5-10); White Blood Cells 0-5 SEEN /hpf (0-5)
[2023-03-29] MEDS: 0.9% Normal Saline (1000mL) 1,000 ML 999 ML IV (15:28)
[2023-03-29 15:30] LABS: Lactic Acid 1.7 mmol/L (0.4-1.9)
[2023-03-29 15:34] LABS: Partial Thromboplast Time 29.1 Seconds (24.1-36.2)
--- NOTE | 2023-03-29 15:35 | EDS_ITS ---
HPI <MELA Olsen - Last Filed: 03/29/23 17:26> History of Present Illness Chief Complaint: Alt LOC Narrative Narrative: Patient is a 67-year-old female who lives at home with her with history of chronic back pain, hypothyroidism, COPD, history of smoking, respiratory failure who presents to the emergency department for altered mental status, difficulty breathing. Patient was brought in by ambulance, patient's pulse oxygenation was 83% on arrival. Per the , the patient did not wake up this morning, so he woke her up secondary to her sleeping all day for the last 24 hours. He states that she is on antibiotics for upper respiratory tract infection. noticed that she was acting altered, this has happened in the past so he called the ambulance. Patient is alert and oriented x1, denies any fever or chills. PFSH <MELA Olsen - Last Filed: 03/29/23 17:26> [facility] Medical History Anxiety Asthma Chronic back pain Chronic respiratory failure with hypoxia COPD (chronic obstructive pulmonary disease) Depression Diverticulitis Fibromyalgia GERD (gastroesophageal reflux disease) Heart disease History of bronchitis History of heart attack History of pneumonia HTN (hypertension) Hypothyroidism Incisional hernia Nausea and vomiting RAUL (obstructive sleep apnea) Osteoarthritis Osteoporosis Sleep apnea Spinal stenosis spinal stimulator Thyroid disorder TIA (transient ischemic attack) Home Medications atorvastatin 80 mg tablet 80 mg PO QHS cholesterol 06/01/13 [History Last Taken 05/25/14 80 MG] clopidogrel 75 mg tablet 75 mg PO DAILY anti platelet 06/01/13 [History Last Taken 12/11/18] metoprolol tartrate 25 mg tablet 12.5 mg PO BID blood pressure 06/01/13 [History Last Taken 06/26/20 05:00] lorazepam 1 mg tablet (Ativan) 1 mg PO BID-TID PRN Anxiety 11/17/18 [History Last Taken Unknown] hydroxyzine HCl 50 mg tablet 50 mg PO QHS 12/01/18 [History Last Taken Unknown] duloxetine 60 mg capsule,delayed release 60 mg PO BID 06/19/20 [History Last Taken Unknown] buspirone 7.5 mg tablet 7.5 mg PO BID 06/03/22 [History Last Taken Unknown] diclofenac sodium 75 mg tablet,delayed release 75 mg PO BID 08/23/22 [History Last Taken Unknown] furosemide 40 mg tablet 60 mg PO DAILY 08/23/22 [History Last Taken Unknown] hydroxychloroquine 200 mg tablet 200 mg PO BID 08/23/22 [History Last Taken Unknown] levothyroxine 50 mcg tablet 50 mcg PO DAILY 08/23/22 [History Last Taken Unknown] liothyronine 5 mcg tablet 25 mcg PO DAILY 08/23/22 [History Last Taken Unknown] pregabalin 50 mg capsule 50 mg PO DAILY 08/23/22 [History Last Taken Unknown] topiramate 25 mg tablet 50 mg PO QHS 08/23/22 [History Last Taken Unknown] triamcinolone acetonide 0.1 % topical cream 1 applic topical BID 08/23/22 [History Last Taken Unknown] albuterol sulfate 90 mcg/actuation aerosol inhaler 1 - 2 puff inhalation Q6H PRN PRN COPD #2 device 03/11/23 [Rx Last Taken Unknown] guaifenesin 1,200 mg tablet, extended release 12 hr 1,200 mg PO Q12H #60 tabs 03/11/23 [Rx Last Taken Unknown] ipratropium 0.5 mg-albuterol 3 mg (2.5 mg base)/3 mL nebulization soln 3 ml inhalation Q4H PRN SOB #180 mL 03/11/23 [Rx Last Taken Unknown] mometasone-formoterol HFA 200 mcg-5 mcg/actuation aerosol inhaler (Dulera) 2 inh inhalation BID #3 ea 03/11/23 [Rx Last Taken Unknown] montelukast 10 mg tablet 10 mg PO QPM #90 tabs 03/11/23 [Rx Last Taken Unknown] nystatin 100,000 unit/mL oral suspension 5 ml mucous membrane TID #250 mL 03/11/23 [Rx Last Taken Unknown] tiotropium bromide 2.5 mcg/actuation mist for inhalation (Spiriva Respimat) 2 inh inhalation DAILY #3 ea 03/11/23 [Rx Last Taken Unknown] Allergy/AdvReac Type Severity Reaction Status Date / Time cefaclor [facility] Allergy Itching Verified 03/11/23 10:11 clarithromycin Allergy Hives Verified 03/11/23 10:11 doxycycline Allergy Itching Verified 03/11/23 10:11 Penicillins Allergy Hives Verified 03/11/23 10:11 Sulfa (Sulfonamide Allergy Hives Verified 03/11/23 10:11 Antibiotics) biotin AdvReac Unknown Unknown Verified 03/11/23 10:11 [email or web address] [From Ambien] AdvReac Unknown mental Verified 03/11/23 10:11 issues Family History Father Asthma Heart disease Grandmother Breast cancer Diabetes Mother Heart disease COPD (chronic obstructive pulmonary disease) Other Cancer Surgical History H/O heart artery stent History of esophagogastroduodenoscopy (EGD) (~07/2018) History of incisional hernia repair (~12/20/18) History of incisional hernia repair Hx of cholecystectomy Previous back surgery S/P carpal tunnel release S/P correction of deviated nasal septum S/P hysterectomy S/P knee surgery Status post amputation of right foot Status post thyroidectomy Social History Smoking Status: Former smoker Tobacco: How many years used: 25 second hand exposure: Yes alcohol intake: never substance use type: does not use caffeine: Yes what type of physical activity do you participate in: none frequency: does not exercise ROS <MELA Olsen - Last Filed: 03/29/23 17:26> ROS ED ROS Narrative Constitutional: Negative for fever, chills, weight loss. Positive for weakness Eyes: Negative for vision loss, vision change, double vision ENT: Negative for any sore throat, ear pain, congestion Cardiovascular: Negative for any chest pain, tightness, palpitations Respiratory: Negative for any hemoptysis.positive for dyspnea, dyspnea on exertion, orthopnea, positive for cough, sputum production Gastrointestinal: Negative for any abdominal pain, nausea, vomiting, diarrhea, constipation, blood in stool, blood in vomit : Negative for any urinary frequency, dysuria, retention, blood in urine Muscle skeletal: Negative for any myalgias, arthralgias, neck pain, back pain Neurological: Negative for any headache, syncope, numbness or tingling, dizziness. Positive for not acting like herself Skin: Negative for any rashes, lumps, itching, abrasions, lacerations Psychiatric: Negative for any depression, anxiety, stress, suicidal ideation, homicidal ideation Hematologic: Negative for any easy bruising, excessive bruising, easy bleeding Allergies: Negative for any eczema, hives, rash EXAM <MELA Olsen - Last Filed: 03/29/23 17:26> Physical Exam Narrative Exam Narrative: Vital signs reviewed. Patient is alert and x2 on examination. Patient is looking around the room. Per the , this is how she gets when she gets ill. HEET: Head normocephalic atraumatic, TMs clear bilaterally. Posterior pharynx is clear, dry mucous membranes. Nares clear bilaterally. Neck: Supple with no lymphadenopathy or tenderness. No signs of meningismus. Cardiac: Regular rate and rhythm no murmurs gallops or rubs, equal peripheral pulses bilaterally. Respiratory: diminished lung sounds to bilateral bases. No chest tenderness. Abdomen: Soft, nontender, nondistended. No abdominal bruit or pulsatile masses. No hepatosplenomegaly Extremities: No peripheral edema, no signs of gross trauma or deformity. Active full range of motion of all extremities. Neuro: Cranial nerves II through XII intact, no focal neurological deficits. Skin: Clean dry and intact with no rash, purpura, petechiae, vesicles or pustules. Backs/flank: No CVA tenderness, no midline spinal tenderness, no deformity. Psych: Normal mood and affect. No SI, HI or acute psychosis. Const Vital Signs: 03/29/23 13:45 03/29/23 13:57 03/29/23 13:56 Temperature 98.5 F 98.6 F Temperature Source Axillary Axillary Pulse Rate 94 94 Respiratory Rate 18 18 Blood Pressure 158/93 H 158/93 H Blood Pressure Mean 114 114 Pulse Ox 83 93 93 Oxygen Delivery Method Room Air Nasal Cannula Nasal Cannula Oxygen Flow Rate (L/min) 2 2 03/29/23 14:09 03/29/23 15:29 03/29/23 16:00 Temperature 97.9 F 98.0 F Temperature Source Temporal Temporal Pulse Rate 85 84 Respiratory Rate 18 19 H Blood Pressure 127/88 H 127/66 H Blood Pressure Mean 101 86 Pulse Ox 97 94 Oxygen Delivery Method Nasal Cannula Nasal Cannula Nasal Cannula Oxygen Flow Rate (L/min) 2 2 2 03/29/23 16:15 03/29/23 16:59 Temperature 98.0 F Temperature Source Pulse Rate 85 85 Respiratory Rate 18 Blood Pressure 121/84 H Blood Pressure Mean 96 Pulse Ox 92 Oxygen Delivery Method Oxygen Flow Rate (L/min) Positive obese Nutritional Appearance: obese <Damon Angel MD - Last Filed: 03/29/23 19:11> Physical Exam Const Vital Signs: 03/29/23 13:45 03/29/23 13:57 03/29/23 13:56 Temperature 98.5 F 98.6 F Temperature Source Axillary Axillary Pulse Rate 94 94 Respiratory Rate 18 18 Blood Pressure 158/93 H 158/93 H Blood Pressure Mean 114 114 Pulse Ox 83 93 93 Oxygen Delivery Method Room Air Nasal Cannula Nasal Cannula Oxygen Flow Rate (L/min) 2 2 03/29/23 14:09 03/29/23 15:29 03/29/23 16:00 Temperature 97.9 F 98.0 F Temperature Source Temporal Temporal Pulse Rate 85 84 Respiratory Rate 18 19 H Blood Pressure 127/88 H 127/66 H Blood Pressure Mean 101 86 Pulse Ox 97 94 Oxygen Delivery Method Nasal Cannula Nasal Cannula Nasal Cannula Oxygen Flow Rate (L/min) 2 2 2 03/29/23 16:15 03/29/23 16:59 Temperature 98.0 F Temperature Source Pulse Rate 85 85 Respiratory Rate 18 Blood Pressure 121/84 H Blood Pressure Mean 96 Pulse Ox 92 Oxygen Delivery Method Oxygen Flow Rate (L/min) MDM <MELA Olsen - Last Filed: 03/29/23 17:26> [facility] Lab Data Labs: Laboratory Results - last 24 hr 03/29/23 03/29/23 13:45 14:30 WBC 17.3 H RBC 4.14 L Hgb 10.3 L Hct 33.7 L MCV 81.4 MCH 24.9 L MCHC 30.6 L RDW Std Deviation 51.5 H RDW Coeff of Genaro 17.2 H Plt Count 557 H MPV 9.4 Immature Gran % (Auto) 0.600 Neut % (Auto) 75.0 H Lymph % (Auto) 15.9 L Young % (Auto) 7.0 Eos % (Auto) 1.2 Baso % (Auto) 0.3 Absolute Neuts (auto) 12.9 H Absolute Lymphs (auto) 2.74 Nucleated RBC % 0 PT 15.2 H INR 1.2 APTT 29.1 Sodium 141 Potassium 3.9 Chloride 109 H Carbon Dioxide 27.0 Anion Gap 5 BUN 38 H Creatinine 2.06 H Estim Creat Clear Calc 60.37 Est GFR (MDRD) Af Amer 31 L Est GFR (MDRD) Non-Af 26 L BUN/Creatinine Ratio 18.4 Glucose 123 H Lactic Acid 1.7 Calcium 8.2 L Total Bilirubin 0.20 AST 9 L ALT 11 L Alkaline Phosphatase 94 Troponin I High Sens 7 B-Natriuretic Peptide 12.9 Total Protein 7.4 Albumin 2.9 L Globulin 4.5 H Albumin/Globulin Ratio 0.6 L Urine Color Yellow Urine Clarity Clear Urine pH 5.0 Ur Specific [place] 1.025 Urine Protein 15 H Urine Glucose (UA) Normal Urine Ketones 5 H Urine Occult Blood Negative Urine Nitrite Negative Urine Bilirubin 1 H Urine Urobilinogen Normal Ur Leukocyte Esterase 25 H Urine RBC 0 SEEN Urine WBC 0-5 SEEN Ur Squamous Epith Cells 0-5 SEEN Urine Bacteria 0 SEEN Urine Mucus 0 SEEN Ur Random Sodium 23 Urine Creatinine 147.00 ABG Data ABG results: ABG 03/29/23 15:03 Specimen Type ART Sample Site L Brach pH 7.37 Bicarbonate Actual 22.9 Total CO2 24 Base Excess -2 O2 Saturation 94 L O2 % 3.0 ABG pCO2 39.3 ABG pO2 71 L Luke Test N/A O2 Delivery Device Not entered Vent Mode Not entered Radiography Diagnostic Testing: Clinical Impression(s) from Imaging Studies Brain CT 03/29/23 14:09 IMPRESSION: There are no acute findings. Chronic involutional changes of the brain. Electronically Signed: Trev Balbuena MD at 15:37 EST , Chest X-Ray 03/29/23 15:03 IMPRESSION: Small bilateral pleural effusions. These findings appear worse. Electronically Signed: Trev Balbuena MD at 15:20 EST , Treatment and Re-Evaluation :: Patient arrives hypoxic, responding well to nasal cannula oxygen. Patient alert and oriented x2. Patient currently on antibiotics secondary to upper respiratory tract infection. Secondary the patient's hypoxia, altered mental status, patient did receive a full septic work-up with 2 sets of blood cultures, lactic acid. Differential diagnosis includes pneumonia, COVID-19, influenza, UTI, stroke. Patient will receive a CT scan of the brain. Patient's chest x-ray shows small bilateral pleural effusions these findings appear worse. Patient CT scan of the brain shows no acute findings. Patient troponin was negative. Lactic acid is 1.7. BNP will be added. Patient's CBC shows a leukocytosis of white blood count 17.3, PT/INR was unremarkable. Patient's patient's BMP does show acute kidney injury with a creatinine of 2.06, patient is usually between 0.8-1.3. proBNP was negative. Secondary to the patient's leukocytosis, pleural effusions, patient will be started on Levaquin concerning for any pneumonia. On reevaluation, the patient was sleeping, she is responding well to nasal cannula oxygen. Patient's blood gas did show a pH that was normal, patient's CO2 was unremarkable, PaO2 was 71 which is low, time, I do believe the patient will benefit from admission secondary to the altered mental status, leukocytosis, hypoxia. I will speak to the hospitalist <Damon Angel MD - Last Filed: 03/29/23 19:11> [facility] MDM Narrative Medical decision making narrative: Dr. Angel: I have personally performed a face to face assessment of the patient and have reviewed the ERA Note. I performed a substantive portion of the visit including all aspects of the following. My patterson findings include: History is mental status change, found to be hypoxic upon EMS arrival, history of wearing CPAP at night. Exam is afebrile. Vital signs noted regular rate and rhythm, lungs clear to auscultation bilaterally, abdomen soft nontender with normoactive bowel sounds. Medical Decision Making: Check head CT, check labs, check ABG. Given her mental status change, although improving, cannot take care of her at home. Patient discussed with hospitalist for admission. Other additions or changes: [None] History & Record Review Discussion w/independent historian: Patient Additional record(s) reviewed:: Prior ED visit and Prior labs Lab Data Attestation: I reviewed the patient's lab results. Labs: Laboratory Results - last 24 hr 03/29/23 03/29/23 13:45 14:30 WBC 17.3 H RBC 4.14 L Hgb 10.3 L Hct 33.7 L MCV 81.4 MCH 24.9 L MCHC 30.6 L RDW Std Deviation 51.5 H RDW Coeff of Genaro 17.2 H Plt Count 557 H MPV 9.4 Immature Gran % (Auto) 0.600 Neut % (Auto) 75.0 H Lymph % (Auto) 15.9 L Young % (Auto) 7.0 Eos % (Auto) 1.2 Baso % (Auto) 0.3 Absolute Neuts (auto) 12.9 H Absolute Lymphs (auto) 2.74 Nucleated RBC % 0 PT 15.2 H INR 1.2 APTT 29.1 Sodium 141 Potassium 3.9 Chloride 109 H Carbon Dioxide 27.0 Anion Gap 5 BUN 38 H Creatinine 2.06 H Estim Creat Clear Calc 60.37 Est GFR (MDRD) Af Amer 31 L Est GFR (MDRD) Non-Af 26 L BUN/Creatinine Ratio 18.4 Glucose 123 H Lactic Acid 1.7 Calcium 8.2 L Total Bilirubin 0.20 AST 9 L ALT 11 L Alkaline Phosphatase 94 Troponin I High Sens 7 B-Natriuretic Peptide 12.9 Total Protein 7.4 Albumin 2.9 L Globulin 4.5 H Albumin/Globulin Ratio 0.6 L Urine Color Yellow Urine Clarity Clear Urine pH 5.0 Ur Specific [place] 1.025 Urine Protein 15 H Urine Glucose (UA) Normal Urine Ketones 5 H Urine Occult Blood Negative Urine Nitrite Negative Urine Bilirubin 1 H Urine Urobilinogen Normal Ur Leukocyte Esterase 25 H Urine RBC 0 SEEN Urine WBC 0-5 SEEN Ur Squamous Epith Cells 0-5 SEEN Urine Bacteria 0 SEEN Urine Mucus 0 SEEN Ur Random Sodium 23 Urine Creatinine 147.00 ABG Data ABG results: ABG 03/29/23 15:03 Specimen Type ART Sample Site L Brach pH 7.37 Bicarbonate Actual 22.9 Total CO2 24 Base Excess -2 O2 Saturation 94 L O2 % 3.0 ABG pCO2 39.3 ABG pO2 71 L Luke Test N/A O2 Delivery Device Not entered Vent Mode Not entered Radiography Diagnostic Testing: Clinical Impression(s) from Imaging Studies Brain CT 03/29/23 14:09 IMPRESSION: There are no acute findings. Chronic involutional changes of the brain. Electronically Signed: Trev Balbuena MD at 15:37 EST , Chest X-Ray 03/29/23 15:03 IMPRESSION: Small bilateral pleural effusions. These findings appear worse. Electronically Signed: Trev Balbuena MD at 15:20 EST , Discharge Plan Dx/Rx/DC Orders Clinical Impression: Acute alteration in mental status, Hypoxemia, Acute kidney injury superimposed on chronic kidney disease Disposition Disposition: Acute Care Hospital [facility] Discharge Date/Time: 03/29/23 18:40
[2023-03-29 15:47] LABS: International Normalized Ratio 1.2; Prothrombin Time (Protime)PT. 15.2 SECONDS (11.7-14.9)
[2023-03-29 16:08] LABS: BNP,B-Type NATRIURETIC PEPTIDE 12.9 pg/mL (0-100)
[2023-03-29] MEDS: levoFLOXacin IV 500 MG/100 ML BAG 100 MG IV (16:34)
--- NOTE | 2023-03-29 17:14 | HP.PCM.HOS_ITS ---
HPI - General General Date of Admission: 03/29/23 Date of Service: 03/29/23 Chief Complaint: Worsening shortness of breath, altered mentation HPI Narrative TAJ BLANK, is a 67 F who presented to [facility] ED on 03/29/2023 with shortness of breath and altered mentation. Patient seen at bedside in ED, present. Patient was sitting up in bed fairly comfortably, in no acute distress. Patient was alert and was answering most questions appropriately, but was often looking around somewhat wide-eyed and did not appear to be completely oriented. Patient's states that she has severe COPD and wears oxygen at home, however he noticed that she was more short of breath this morning and had altered mentation so he called EMS to bring her to the ED. Patient has been wearing her CPAP machine for RAUL at home as normal. does state patient has been eating and drinking a little bit less over the past few days. He states patient has been on antibiotics for an upper respiratory faction over the last few days. He does state that this has happened in the past for the patient. Patient currently denies any acute pain or discomfort. She denies any significant shortness of breath at rest. Denies any fevers or chills. No other acute concerns at this time. [facility] Medical History (Reviewed 03/11/23 @ 10:23 by Maricarmen Acevedo SALES SPECIAL AGENT, SALES SPECIAL AGENT-C) Anxiety Asthma Chronic back pain Chronic respiratory failure with hypoxia COPD (chronic obstructive pulmonary disease) Depression Diverticulitis Fibromyalgia GERD (gastroesophageal reflux disease) Heart disease History of bronchitis History of heart attack History of pneumonia HTN (hypertension) Hypothyroidism Incisional hernia Nausea and vomiting RAUL (obstructive sleep apnea) Osteoarthritis Osteoporosis Sleep apnea Spinal stenosis spinal stimulator Thyroid disorder TIA (transient ischemic attack) Home Medications atorvastatin 80 mg tablet 80 mg PO QHS cholesterol 06/01/13 [History Last Taken 05/25/14 80 MG] clopidogrel 75 mg tablet 75 mg PO DAILY anti platelet 06/01/13 [History Last Taken 12/11/18] metoprolol tartrate 25 mg tablet 12.5 mg PO BID blood pressure 06/01/13 [History Last Taken 06/26/20 05:00] lorazepam 1 mg tablet (Ativan) 1 mg PO BID-TID PRN Anxiety 11/17/18 [History Last Taken Unknown] hydroxyzine HCl 50 mg tablet 50 mg PO QHS 12/01/18 [History Last Taken Unknown] duloxetine 60 mg capsule,delayed release 60 mg PO BID 06/19/20 [History Last Taken Unknown] buspirone 7.5 mg tablet 7.5 mg PO BID 06/03/22 [History Last Taken Unknown] diclofenac sodium 75 mg tablet,delayed release 75 mg PO BID 08/23/22 [History Last Taken Unknown] furosemide 40 mg tablet 60 mg PO DAILY 08/23/22 [History Last Taken Unknown] hydroxychloroquine 200 mg tablet 200 mg PO BID 08/23/22 [History Last Taken Unknown] levothyroxine 50 mcg tablet 50 mcg PO DAILY 08/23/22 [History Last Taken Unknown] liothyronine 5 mcg tablet 25 mcg PO DAILY 08/23/22 [History Last Taken Unknown] pregabalin 50 mg capsule 50 mg PO DAILY 08/23/22 [History Last Taken Unknown] topiramate 25 mg tablet 50 mg PO QHS 08/23/22 [History Last Taken Unknown] triamcinolone acetonide 0.1 % topical cream 1 applic topical BID 08/23/22 [History Last Taken Unknown] albuterol sulfate 90 mcg/actuation aerosol inhaler 1 - 2 puff inhalation Q6H PRN PRN COPD #2 device 03/11/23 [Rx Last Taken Unknown] guaifenesin 1,200 mg tablet, extended release 12 hr 1,200 mg PO Q12H #60 tabs 03/11/23 [Rx Last Taken Unknown] ipratropium 0.5 mg-albuterol 3 mg (2.5 mg base)/3 mL nebulization soln 3 ml inhalation Q4H PRN SOB #180 mL 03/11/23 [Rx Last Taken Unknown] mometasone-formoterol HFA 200 mcg-5 mcg/actuation aerosol inhaler (Dulera) 2 inh inhalation BID #3 ea 03/11/23 [Rx Last Taken Unknown] montelukast 10 mg tablet 10 mg PO QPM #90 tabs 03/11/23 [Rx Last Taken Unknown] nystatin 100,000 unit/mL oral suspension 5 ml mucous membrane TID #250 mL 03/11/23 [Rx Last Taken Unknown] tiotropium bromide 2.5 mcg/actuation mist for inhalation (Spiriva Respimat) 2 inh inhalation DAILY #3 ea 03/11/23 [Rx Last Taken Unknown] Allergy/AdvReac Type Severity Reaction Status Date / Time cefaclor [From Ceclor] Allergy Itching Verified 03/11/23 10:11 clarithromycin Allergy Hives Verified 03/11/23 10:11 doxycycline Allergy Itching Verified 03/11/23 10:11 Penicillins Allergy Hives Verified 03/11/23 10:11 Sulfa (Sulfonamide Allergy Hives Verified 03/11/23 10:11 Antibiotics) biotin AdvReac Unknown Unknown Verified 03/11/23 10:11 zolpidem [From Ambien] AdvReac Unknown mental Verified 03/11/23 10:11 issues Family History (Reviewed 03/11/23 @ 10:23 by Maricarmen Acevedo SALES SPECIAL AGENT, SALES SPECIAL AGENT-C) Father Asthma Heart disease Grandmother Breast cancer Diabetes Mother Heart disease COPD (chronic obstructive pulmonary disease) Other Cancer Surgical History (Reviewed 03/11/23 @ 10:23 by Maricarmen Acevedo SALES SPECIAL AGENT, SALES SPECIAL AGENT-C) H/O heart artery stent History of esophagogastroduodenoscopy (EGD) (~07/2018) History of incisional hernia repair (~12/20/18) History of incisional hernia repair Hx of cholecystectomy Previous back surgery S/P carpal tunnel release S/P correction of deviated nasal septum S/P hysterectomy S/P knee surgery Status post amputation of right foot Status post thyroidectomy Social History (Reviewed 03/11/23 @ 10:23 by Maricarmen Acevedo SALES SPECIAL AGENT, SALES SPECIAL AGENT-C) Smoking Status: Former smoker Tobacco: How many years used: 25 second hand exposure: Yes alcohol intake: never substance use type: does not use caffeine: Yes what type of physical activity do you participate in: none frequency: does not exercise ROS Constitutional Constitutional: Denies chills, fatigue, fever(s) or weakness Eyes Eyes: Denies change in vision Cardiovascular Cardiovascular: Denies chest pain Respiratory/Chest Respiratory/Chest: Reports cough; Denies shortness of breath at rest or wheezing Gastrointestinal Gastrointestinal: Denies abdominal pain, nausea or vomiting Genitourinary Genitourinary: Denies dysuria Musculoskeletal Musculoskeletal: Reports back pain; Denies arthralgias Neurologic Neurologic: Denies dizziness, focal weakness or headache(s) Vital Signs Vital Signs Vital Signs: 03/29/23 13:45 03/29/23 13:57 03/29/23 13:56 Temperature 98.5 F 98.6 F Temperature Source Axillary Axillary Pulse Rate 94 94 Respiratory Rate 18 18 Blood Pressure 158/93 H 158/93 H Blood Pressure Mean 114 114 Pulse Ox 83 93 93 Oxygen Delivery Method Room Air Nasal Cannula Nasal Cannula Oxygen Flow Rate (L/min) 2 2 03/29/23 14:09 03/29/23 15:29 03/29/23 16:00 Temperature 97.9 F 98.0 F Temperature Source Temporal Temporal Pulse Rate 85 84 Respiratory Rate 18 19 H Blood Pressure 127/88 H 127/66 H Blood Pressure Mean 101 86 Pulse Ox 97 94 Oxygen Delivery Method Nasal Cannula Nasal Cannula Nasal Cannula Oxygen Flow Rate (L/min) 2 2 2 03/29/23 16:15 03/29/23 16:59 Temperature 98.0 F Temperature Source Pulse Rate 85 85 Respiratory Rate 18 Blood Pressure 121/84 H Blood Pressure Mean 96 Pulse Ox 92 Oxygen Delivery Method Oxygen Flow Rate (L/min) Weight Weight: 144.3 kg Body Mass Index (BMI) 68.6 Physical Exam Const alert Constitutional Narrative: Elderly female, chronically ill-appearing, appears older than stated age, sitting fairly comfortably in bed, no acute distress. Alert and answering most questions appropriately but does not appear completely oriented at this time. General Appearance: cooperative and comfortable HEENT normocephalic, head/scalp atraumatic, hearing grossly normal bilaterally, nasal mucous membranes and turbinates normal and moist oral mucous membranes Eyes PERRL, EOMs intact bilaterally and conjunctivae normal Neck full ROM, no lymphadenopathy and supple Lymph Lymphatic: no lymphadenopathy noted Chest inspection of chest normal Resp Resp Narrative: Moderately decreased breath sounds bilaterally with crackles noted in bases bilaterally. No wheezing noted. Patient satting in mid 90s on 4 L nasal cannula, no increased work of breathing noted. Cardio regular rate, regular rhythm, no murmurs and peripheral pulses 2+ throughout GI normal to inspection, nondistended, normoactive bowel sounds, soft to palpation, non-tender and non-distended Back/Spine normal ROM Extremity normal to inspection, full ROM and no pedal edema Skin no rashes or lesions noted Neuro moves all extremities and no focal motor deficits Results Lab / Micro Data 03/29/23 13:45 03/29/23 13:45 Labs: Laboratory Results - last 24 hr 03/29/23 13:45: WBC 17.3 H, RBC 4.14 L, Hgb 10.3 L, Hct 33.7 L, MCV 81.4, MCH 24.9 L, MCHC 30.6 L, RDW Std Deviation 51.5 H, RDW Coeff of Genaro 17.2 H, Plt Count 557 H, MPV 9.4, Immature Gran % (Auto) 0.600, Neut % (Auto) 75.0 H, Lymph % (Auto) 15.9 L, [place] % (Auto) 7.0, Eos % (Auto) 1.2, Baso % (Auto) 0.3, Absolute Neuts (auto) 12.9 H, Absolute Lymphs (auto) 2.74, Nucleated RBC % 0, PT 15.2 H, INR 1.2, APTT 29.1, Sodium 141, Potassium 3.9, Chloride 109 H, Carbon Dioxide 27.0, Anion Gap 5, BUN 38 H, Creatinine 2.06 H, Estim Creat Clear Calc 60.37, Est GFR (MDRD) Af Amer 31 L, Est GFR (MDRD) Non-Af 26 L, BUN/Creatinine Ratio 18.4, Glucose 123 H, Lactic Acid 1.7, Calcium 8.2 L, Total Bilirubin 0.20, AST 9 L, ALT 11 L, Alkaline Phosphatase 94, Troponin I High Sens 7, B- Natriuretic Peptide 12.9, Total Protein 7.4, Albumin 2.9 L, Globulin 4.5 H, Albumin/Globulin Ratio 0.6 L 03/29/23 14:30: Urine Color Yellow, Urine Clarity Clear, Urine pH 5.0, Ur Specific [place] 1.025, Urine Protein 15 H, Urine Glucose (UA) Normal, Urine Ketones 5 H, Urine Occult Blood Negative, Urine Nitrite Negative, Urine Bilirubin 1 H, Urine Urobilinogen Normal, Ur Leukocyte Esterase 25 H, Urine RBC 0 SEEN, Urine WBC 0-5 SEEN, Ur Squamous Epith Cells 0-5 SEEN, Urine Bacteria 0 SEEN, Urine Mucus 0 SEEN Micro: Microbiology 03/29/23 15:14 Nasal Secretion SARS-CoV-2 & FLU Antigen (Rapid) - Final ABG Data ABG results: ABG 03/29/23 15:03 Specimen Type ART Sample Site L Brach pH 7.37 Bicarbonate Actual 22.9 Total CO2 24 Base Excess -2 O2 Saturation 94 L O2 % 3.0 ABG pCO2 39.3 ABG pO2 71 L Luke Test N/A O2 Delivery Device Not entered Vent Mode Not entered Imagaing Radiology Impression Brain CT 03/29/23 14:09 IMPRESSION: There are no acute findings. Chronic involutional changes of the brain. Electronically Signed: Trev Balbuena MD at 15:37 EST , Chest X-Ray 03/29/23 15:03 IMPRESSION: Small bilateral pleural effusions. These findings appear worse. Electronically Signed: Trev Balbuena MD at 15:20 EST , Assessment & Plan Assessment/Plan (1) Chronic respiratory failure with hypoxia: (2) Acute alteration in mental status: (3) DANYEL (acute kidney injury): PLAN: Plan Patient is a 67-year-old female who presented to [facility] ED o n 03/29/2023 with shortness of breath and altered mentation. 1. 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 Raza with pulmonology, last office visit on 03/11. Has history of severe COPD/asthma overlap syndrome with chronic respiratory failure, wears supplemental oxygen at baseline. Has mildly worsened hypoxia from baseline, WBC count 17, per was on antibiotics for an upper respiratory tract infection over the last several days; suspect possibly viral respiratory illness causing mild exacerbation. Chest x-ray with small bilateral pleural effusions, mildly worsened from previous chest x-ray. ? Admit under inpatient status to PCU. Pulmonology consulted. Respiratory PCR panel, sputum culture, blood cultures ordered. Trend CBC. Scheduled DuoNebs for now. Will defer to pulmonology on need for systemic steroids or antibiotics. Continue home long-acting inhaler, Singulair, Mucinex as needed. 2. DANYEL Creatinine 2.06, BUN 38 on admit. Baseline creatinine appears to be around 0.8- 1.2. Suspect prerenal etiology in setting of poor p.o. intake due to suspected infection as noted above. ? Trend daily BMP. Urine sodium and creatinine ordered to calculate FeNa. Monitor urine output. Will hold on IV fluids for now given small pleural effusions noted on chest x-ray, but if DANYEL shown to be prerenal patient may need some supplemental IV fluids versus increasing p.o. intake. 3. Debility, history of right BKA Patient has fairly significant debility at baseline, uses a walker around the home and a motorized scooter outside of the home. Lives with her who is her primary copper plate printer. ? PT/OT/case management consulted. Chronic medical conditions: ? RAUL: Continue home CPAP. ? CAD, hypertension, hyperlipidemia: Continue home Plavix, atorvastatin, Lopressor. Holding home Lasix given DANYEL as noted above. ? Hypothyroidism: Continue home Synthroid and liothyronine. ? Anxiety/depression: Continue home duloxetine, BuSpar, decreased Ativan dose twice daily as needed. DVT prophylaxis: Heparin subcu CODE STATUS: DNR CCA, DO NOT INTUBATE. Confirmed with patient and on admission. Expected disposition: TBD Total clinical time spent by myself addressing the patient's medical issues, reviewing all the data, and collaborating with patient's care team: 55 minutes. Charges/Coding Visit Charges Inpatient E&M: 03643 Init Hosp L2
[2023-03-29 18:35] LABS: Urine Sodium 23 mmol/L (Not Establ.)
[2023-03-29] MEDS: DULoxetine Hcl 60 MG Capsule PO (21:50)
[2023-03-29] MEDS: busPIRone 5 MG Tablet 7.5 MG PO (21:50)
[2023-03-29] MEDS: Heparin Injection (Vial) 5,000 UNIT/ML VIAL 5000 UNIT SC (21:50)
[2023-03-29] MEDS: Topiramate 50 MG Tablet PO (21:51)
[2023-03-29] MEDS: Metoprolol Tartrate 25 MG Tablet 12.5 MG PO (21:51)
[2023-03-29] MEDS: Montelukast 10 MG Tablet PO (21:52)
[2023-03-29] MEDS: hydrOXYzine PAM 25 MG Capsule 50 MG PO (21:52)
[2023-03-29] MEDS: Atorvastatin Calcium 80 MG Tablet PO (21:52)
[2023-03-29] MEDS: Hydroxychloroquine 200 MG Tablet PO (21:52)
[2023-03-30] VITALS (8 sets, daily range): BP systolic 103–117; BP diastolic 41–58; PULSE 72–87; RESP 17–20; TEMP 36.1–37.1; O2SAT 91–98
[2023-03-30] MEDS: Heparin Injection (Vial) 5,000 UNIT/ML VIAL 5000 UNIT SC ×2 (05:12→15:23)
[2023-03-30] MEDS: Levothyroxine 50 MCG Tablet PO (05:14)
[2023-03-30] MEDS: Liothyronine 5 MCG Tablet 25 MCG PO (05:14)
[2023-03-30] MEDS: guaiFENesin 1,200 MG Tablet 1200 MG PO (05:25)
[2023-03-30 07:00] LABS: Hematocrit 29.4 % (37-47); Hemoglobin 9.2 g/dL (12.0-15.0); Mean Corp Hgb Conc 31.3 g/dL (32-36); Mean Corpuscular Volume 83.1 fL (81-99); Mean Platelet Vol. 9.2 fl (6.2-12.0); Platelet Count 420 K/mm3 (150-450); RBC Distribution Width CV 17.3 % (11.6-14.6); RBC Distribution Width SD 52.8 fl (35.1-43.9); Red Blood Count 3.54 M/mm3 (4.2-5.4); White Blood Count 10.4 K/mm3 (4.4-11.0)
[2023-03-30] MEDS: Ipratropium/Albuterol Sulfate 3 ML AMPUL.NEB INHALATION ×2 (07:19→14:50)
[2023-03-30 07:35] LABS: Anion Gap 3 (5-15); BUN 25 mg/dL (7-18); Chloride 110 mmol/L (98-107); Creatinine, Serum 1.19 mg/dL (0.55-1.02); EST Glomerular Filtration Rate 48 mL/min (>60); Est Glom Filt Rate - Afr Amer 58 mL/min (>60); Estimated Creatinine Clearance 32.95 ml/min; Glucose 88 mg/dL (74-106); Potassium 4.1 mmol/L (3.5-5.1); Sodium Level 140 mmol/L (136-145)
[2023-03-30] MEDS: Pregabalin 50 MG Capsule PO (09:59)
[2023-03-30] MEDS: DULoxetine Hcl 60 MG Capsule PO (09:59)
[2023-03-30] MEDS: Clopidogrel Bisulfate 75 MG Tablet PO (09:59)
[2023-03-30] MEDS: Hydroxychloroquine 200 MG Tablet PO (09:59)
[2023-03-30] MEDS: busPIRone 5 MG Tablet 7.5 MG PO (10:00)
[2023-03-30] MEDS: Metoprolol Tartrate 25 MG Tablet 12.5 MG PO (10:00)
--- NOTE | 2023-03-30 11:18 | CON.PCM.CC_ITS ---
Assessment & Plan Assessment/Plan (1) Acute on chronic hypoxic respiratory failure: PLAN: Plan Placement * Acute on chronic respiratory failure, patient is on home oxygen at 3 to 4 L * DANYEL * Moderate to severe COPD, FEV1 51% and DLCO 33% on her most recent PFTs * RAUL on home CPAP * Debility * Right BKA * CAD on statin and Plavix Plan -Patient appears to be back to her baseline from pulmonary standpoint. Viral panel is negative. She has signs of mild volume overload given bilateral pleural effusion although too small for thoracentesis. There is no active wheezing on exam. No CO2 retention on ABG. Hold off steroids. - Recommend fluid restriction and gentle diuresis. Kidney function appears to be improving -Continue home inhalers -Continue CPAP use at night during sleeping hours -DVT prophylaxis subcu heparin HPI Consult Data Date of Consult: 03/30/23 HPI Narrative Reason for Consultation: COPD HPI Narrative: TAJ BLANK, is a 67 F past medical history of moderate to severe COPD FEV1 of 51%, is DLCO 33% who presents with altered mental status and concern for worsening hypoxia. Upon evaluation patient reports that she is recovering from a COPD exacerbation and upper respiratory tract infection. She currently feels that her breathing is back to baseline. She denies worsening cough. She denies wheezing. She is usually on 3 to 4 L nasal cannula at home. She reports that her felt that she was confused and brought her to the hospital. Chest x-ray yesterday showed small bilateral pleural effusions without signs of consolidations or pneumonia. Patient has been afebrile. Her viral panel is negative. [facility] Medical History (Reviewed 03/11/23 @ 10:23 by Maricarmen Acevedo [employer] MONITORING, AIR SAMPLING AND MONITORING-C) Anxiety Asthma Chronic back pain Chronic respiratory failure with hypoxia COPD (chronic obstructive pulmonary disease) Depression Diverticulitis Fibromyalgia GERD (gastroesophageal reflux disease) Heart disease History of bronchitis History of heart attack History of pneumonia HTN (hypertension) Hypothyroidism Incisional hernia Nausea and vomiting RAUL (obstructive sleep apnea) Osteoarthritis Osteoporosis Sleep apnea Spinal stenosis spinal stimulator Thyroid disorder TIA (transient ischemic attack) Home Medications atorvastatin 80 mg tablet 80 mg PO QHS cholesterol 06/01/13 [History Last Taken 05/25/14 80 MG] clopidogrel 75 mg tablet 75 mg PO DAILY anti platelet 06/01/13 [History Last Taken 12/11/18] metoprolol tartrate 25 mg tablet 12.5 mg PO BID blood pressure 06/01/13 [History Last Taken 06/26/20 05:00] lorazepam 1 mg tablet (Ativan) 1 mg PO BID-TID PRN Anxiety 11/17/18 [History Last Taken Unknown] hydroxyzine HCl 50 mg tablet 50 mg PO QHS 12/01/18 [History Last Taken Unknown] duloxetine 60 mg capsule,delayed release 60 mg PO BID 06/19/20 [History Last Taken Unknown] buspirone 7.5 mg tablet 7.5 mg PO BID 06/03/22 [History Last Taken Unknown] diclofenac sodium 75 mg tablet,delayed release 75 mg PO BID 08/23/22 [History Last Taken Unknown] furosemide 40 mg tablet 60 mg PO DAILY 08/23/22 [History Last Taken Unknown] hydroxychloroquine 200 mg tablet 200 mg PO BID 08/23/22 [History Last Taken Unknown] levothyroxine 50 mcg tablet 50 mcg PO DAILY 08/23/22 [History Last Taken Unknown] liothyronine 5 mcg tablet 25 mcg PO DAILY 08/23/22 [History Last Taken Unknown] pregabalin 50 mg capsule 50 mg PO DAILY 08/23/22 [History Last Taken Unknown] topiramate 25 mg tablet 50 mg PO QHS 08/23/22 [History Last Taken Unknown] triamcinolone acetonide 0.1 % topical cream 1 applic topical BID 08/23/22 [History Last Taken Unknown] albuterol sulfate 90 mcg/actuation aerosol inhaler 1 - 2 puff inhalation Q6H PRN PRN COPD #2 device 03/11/23 [Rx Last Taken Unknown] guaifenesin 1,200 mg tablet, extended release 12 hr 1,200 mg PO Q12H #60 tabs 03/11/23 [Rx Last Taken Unknown] ipratropium 0.5 mg-albuterol 3 mg (2.5 mg base)/3 mL nebulization soln 3 ml inhalation Q4H PRN SOB #180 mL 03/11/23 [Rx Last Taken Unknown] mometasone-formoterol HFA 200 mcg-5 mcg/actuation aerosol inhaler (Dulera) 2 inh inhalation BID #3 ea 03/11/23 [Rx Last Taken Unknown] montelukast 10 mg tablet 10 mg PO QPM #90 tabs 03/11/23 [Rx Last Taken Unknown] nystatin 100,000 unit/mL oral suspension 5 ml mucous membrane TID #250 mL 03/11/23 [Rx Last Taken Unknown] tiotropium bromide 2.5 mcg/actuation mist for inhalation (Spiriva Respimat) 2 inh inhalation DAILY #3 ea 03/11/23 [Rx Last Taken Unknown] Allergy/AdvReac Type Severity Reaction Status Date / Time cefaclor [From [facility]] Allergy Itching Verified 03/11/23 10:11 clarithromycin Allergy Hives Verified 03/11/23 10:11 doxycycline Allergy Itching Verified 03/11/23 10:11 Penicillins Allergy Hives Verified 03/11/23 10:11 Sulfa (Sulfonamide Allergy Hives Verified 03/11/23 10:11 Antibiotics) biotin AdvReac Unknown Unknown Verified 03/11/23 10:11 zolpidem [From Ambien] AdvReac Unknown mental Verified 03/11/23 10:11 issues Family History (Reviewed 03/11/23 @ 10:23 by Maricarmen Acevedo [employer], AIR SAMPLING AND MONITORING-C) Father Asthma Heart disease Grandmother Breast cancer Diabetes Mother Heart disease COPD (chronic obstructive pulmonary disease) Other Cancer Surgical History (Reviewed 03/11/23 @ 10:23 by Maricarmen Acevedo [employer]ITORING, AIR SAMPLING AND MONITORING-C) H/O heart artery stent History of esophagogastroduodenoscopy (EGD) (~07/2018) History of incisional hernia repair (~12/20/18) History of incisional hernia repair Hx of cholecystectomy Previous back surgery S/P carpal tunnel release S/P correction of deviated nasal septum S/P hysterectomy S/P knee surgery Status post amputation of right foot Status post thyroidectomy Social History (Reviewed 03/11/23 @ 10:23 by Maricarmen Acevedo [employer]ITORING, AIR SAMPLING AND MONITORING-C) Smoking Status: Former smoker Tobacco: How many years used: 25 second hand exposure: Yes alcohol intake: never substance use type: does not use caffeine: Yes what type of physical activity do you participate in: none frequency: does not exercise ROS ROS Narrative Negative except as mentioned above Physical Exam Narrative General alert oriented in no acute distress HEENT. Normocephalic atraumatic, pupils equal and reactive Respiratory reduced air entry bilaterally, no wheeze, no crackles Cardiac S1-S2, regular rate and rhythm GI abdomen soft and nontender MSK right BKA, Skin no rashes Neuro moves all extremities, no dysarthria, no facial droop Lab / Micro Data 03/30/23 06:33 03/30/23 06:33 Labs: Laboratory Results - last 24 hr 03/29/23 13:45: WBC 17.3 H, RBC 4.14 L, Hgb 10.3 L, Hct 33.7 L, MCV 81.4, MCH 24.9 L, MCHC 30.6 L, RDW Std Deviation 51.5 H, RDW Coeff of Genaro 17.2 H, Plt Count 557 H, MPV 9.4, Immature Gran % (Auto) 0.600, Neut % (Auto) 75.0 H, Lymph % (Auto) 15.9 L, [place] % (Auto) 7.0, Eos % (Auto) 1.2, Baso % (Auto) 0.3, Absolute Neuts (auto) 12.9 H, Absolute Lymphs (auto) 2.74, Nucleated RBC % 0, PT 15.2 H, INR 1.2, APTT 29.1, Sodium 141, Potassium 3.9, Chloride 109 H, Carbon Dioxide 27.0, Anion Gap 5, BUN 38 H, Creatinine 2.06 H, Estim Creat Clear Calc 60.37, Est GFR (MDRD) Af Amer 31 L, Est GFR (MDRD) Non-Af 26 L, BUN/Creatinine Ratio 18.4, Glucose 123 H, Lactic Acid 1.7, Calcium 8.2 L, Total Bilirubin 0.20, AST 9 L, ALT 11 L, Alkaline Phosphatase 94, Troponin I High Sens 7, B- Natriuretic Peptide 12.9, Total Protein 7.4, Albumin 2.9 L, Globulin 4.5 H, Albumin/Globulin Ratio 0.6 L 03/29/23 14:30: Urine Color Yellow, Urine Clarity Clear, Urine pH 5.0, Ur Specific [place] 1.025, Urine Protein 15 H, Urine Glucose (UA) Normal, Urine Ketones 5 H, Urine Occult Blood Negative, Urine Nitrite Negative, Urine Bilirubin 1 H, Urine Urobilinogen Normal, Ur Leukocyte Esterase 25 H, Urine RBC 0 SEEN, Urine WBC 0-5 SEEN, Ur Squamous Epith Cells 0-5 SEEN, Urine Bacteria 0 SEEN, Urine Mucus 0 SEEN, Ur Random Sodium 23, Urine Creatinine 147.00 03/30/23 06:33: WBC 10.4, RBC 3.54 L, Hgb 9.2 L, Hct 29.4 L, MCV 83.1, MCH 26.0 L, MCHC 31.3 L, RDW Std Deviation 52.8 H, RDW Coeff of [place] 17.3 H, Plt Count 420, MPV 9.2, Sodium 140, Potassium 4.1, Chloride 110 H, Carbon Dioxide 27.0, Anion Gap 3 L, BUN 25 H, Creatinine 1.19 H, Estim Creat Clear Calc 32.95, Est GFR (MDRD) Af Amer 58 L, Est GFR (MDRD) Non-Af 48 L, BUN/Creatinine Ratio 21.0 H , Glucose 88, Calcium 8.0 L Micro: Microbiology 03/29/23 14:30 Urine Catheter - Catheter Urine Culture - Preliminary Culture exhibits no growth. 03/30/23 01:16 Mucosa - Nasopharyngeal Respiratory Panel (PCR) - Final 03/29/23 15:14 Nasal Secretion SARS-CoV-2 & FLU Antigen (Rapid) - Final ABG Data ABG results: ABG 03/29/23 15:03 Specimen Type ART Sample Site L Brach pH 7.37 Bicarbonate Actual 22.9 Total CO2 24 Base Excess -2 O2 Saturation 94 L O2 % 3.0 ABG pCO2 39.3 ABG pO2 71 L Luke Test N/A O2 Delivery Device Not entered Vent Mode Not entered Imagaing Radiology Impression Brain CT 03/29/23 14:09 IMPRESSION: There are no acute findings. Chronic involutional changes of the brain. Electronically Signed: Trev Balbuena MD at 15:37 EST , Chest X-Ray 03/29/23 15:03 IMPRESSION: Small bilateral pleural effusions. These findings appear worse. Electronically Signed: Trev Balbuena MD at 15:20 EST , Charges/Coding Visit Charges Inpatient E&M: 79136 Init Hosp L3
--- NOTE | 2023-03-30 14:12 | PN_ITS ---
Subjective Subjective Patient seen and examined. She was admitted with a complaint of altered mental status an shortness of breath. Sh is being managed for acute exacerbation of COPD. She feels better today. She is on 4L of oxygen. She denies any cough, chest pain, palpitations, dizziness, nausea, vomiting or any other symptoms. Review of systems is otherwise negative. She has otherwise remained hemodynamically stable. Objective Data Objective Data Vital Signs: Vital Signs Temp Pulse Resp BP Pulse Ox O2 Del Method O2 Flow Rate 98.7 F 74 20 H 103/50 L 91 Room Air 3 03/30/23 09:54 03/30/23 13:34 03/30/23 13:34 03/30/23 09:54 03/30/23 12:30 03/30/23 12:30 03/30/23 10:46 Oxygen Flow Rate (L/min) 3 Oxygen Delivery Method Room Air Weight: 145 lb 11.609 oz Body Mass Index (BMI) 28.4 Intake & Output: Intake and Output for Last 24 Hours 03/28/23 03/29/23 03/30/23 23:59 23:59 23:59 Intake Total 1100 / 1320 770 / 770 Output Total 1525 / 1525 Balance 1100 / 695 -755 / -755 Lab / Micro Data 03/30/23 06:33 03/30/23 06:33 Labs: Laboratory Results - last 24 hr 03/29/23 13:45: WBC 17.3 H, RBC 4.14 L, Hgb 10.3 L, Hct 33.7 L, MCV 81.4, MCH 24.9 L, MCHC 30.6 L, RDW Std Deviation 51.5 H, RDW Coeff of Genaro 17.2 H, Plt Count 557 H, MPV 9.4, Immature Gran % (Auto) 0.600, Neut % (Auto) 75.0 H, Lymph % (Auto) 15.9 L, [place] % (Auto) 7.0, Eos % (Auto) 1.2, Baso % (Auto) 0.3, Absolute Neuts (auto) 12.9 H, Absolute Lymphs (auto) 2.74, Nucleated RBC % 0, PT 15.2 H, INR 1.2, APTT 29.1, Sodium 141, Potassium 3.9, Chloride 109 H, Carbon Dioxide 27.0, Anion Gap 5, BUN 38 H, Creatinine 2.06 H, Estim Creat Clear Calc 60.37, Est GFR (MDRD) Af Amer 31 L, Est GFR (MDRD) Non-Af 26 L, BUN/Creatinine Ratio 18.4, Glucose 123 H, Lactic Acid 1.7, Calcium 8.2 L, Total Bilirubin 0.20, AST 9 L, ALT 11 L, Alkaline Phosphatase 94, Troponin I High Sens 7, B- Natriuretic Peptide 12.9, Total Protein 7.4, Albumin 2.9 L, Globulin 4.5 H, Albumin/Globulin Ratio 0.6 L 03/29/23 14:30: Urine Color Yellow, Urine Clarity Clear, Urine pH 5.0, Ur Specific Maybee 1.025, Urine Protein 15 H, Urine Glucose (UA) Normal, Urine Ketones 5 H, Urine Occult Blood Negative, Urine Nitrite Negative, Urine Bilirubin 1 H, Urine Urobilinogen Normal, Ur Leukocyte Esterase 25 H, Urine RBC 0 SEEN, Urine WBC 0-5 SEEN, Ur Squamous Epith Cells 0-5 SEEN, Urine Bacteria 0 SEEN, Urine Mucus 0 SEEN, Ur Random Sodium 23, Urine Creatinine 147.00 03/30/23 06:33: WBC 10.4, RBC 3.54 L, Hgb 9.2 L, Hct 29.4 L, MCV 83.1, MCH 26.0 L, MCHC 31.3 L, RDW Std Deviation 52.8 H, RDW Coeff of Genaro 17.3 H, Plt Count 420, MPV 9.2, Sodium 140, Potassium 4.1, Chloride 110 H, Carbon Dioxide 27.0, Anion Gap 3 L, BUN 25 H, Creatinine 1.19 H, Estim Creat Clear Calc 32.95, Est GFR (MDRD) Af Amer 58 L, Est GFR (MDRD) Non-Af 48 L, BUN/Creatinine Ratio 21.0 H , Glucose 88, Calcium 8.0 L Micro: Microbiology 03/29/23 14:30 Urine Catheter - Catheter Urine Culture - Preliminary Culture exhibits no growth. 03/30/23 01:16 Mucosa - Nasopharyngeal Respiratory Panel (PCR) - Final 03/29/23 15:14 Nasal Secretion SARS-CoV-2 & FLU Antigen (Rapid) - Final ABG Data ABG results: ABG 03/29/23 15:03 Specimen Type ART Sample Site L Brach pH 7.37 Bicarbonate Actual 22.9 Total CO2 24 Base Excess -2 O2 Saturation 94 L O2 % 3.0 ABG pCO2 39.3 ABG pO2 71 L Luke Test N/A O2 Delivery Device Not entered Vent Mode Not entered Radiography Diagnostic Testing: Radiology Impression Brain CT 03/29/23 14:09 IMPRESSION: There are no acute findings. Chronic involutional changes of the brain. Electronically Signed: Trev Balbuena MD at 15:37 EST , Chest X-Ray 03/29/23 15:03 IMPRESSION: Small bilateral pleural effusions. These findings appear worse. Electronically Signed: Trev Balbuena MD at 15:20 EST , Physical Exam Resp Resp Narrative: mildly diminished breath sounds bibasally, no wheezes or crackles. On 4L of oxygen by nasal canula Cardio regular rate, regular rhythm, S1 normal heart sound, S2 normal heart sound and no murmurs GI normal to inspection, nondistended, normoactive bowel sounds, soft to palpation, non-tender and non-distended Extremity normal capillary refill, no clubbing, cyanosis or edema and no calf tenderness Skin General Skin Exam: no breakdown Neuro CN's II-XII intact bilaterally, no focal motor deficits, no sensory deficits noted and deep tendon reflexes 2+ bilaterally Motor Exam: strength 5/5 throughout and general weakness Psych thought process normal and cooperative Appearance: appropriate Assessment & Plan Assessment/Plan (1) Acute on chronic hypoxic respiratory failure: (2) Acute kidney injury superimposed on chronic kidney disease: (3) Acute alteration in mental status: PLAN: Plan #Hypoxia due to COPD/asthma exacerbation * on 4L of oxygen now * says she wears 4L of oxygen with her CPAP a night * had been treated for an URTI over the last few days prior to admission * CXR showed bilateral pleural effusions, slightly worse from previous CXR * respiratory panel negative. COVID negative. * pulmnology consulted * titrate oxygen to maintain sats >90% * breathing treatment with bronchodilators * #Hermilo: Cr trending downards. Will continue to monitor. Cr is down to 1.19 from 2.06 on admission. #CAD: on plavix and statin. #Debility * Patient has right BKA and left lower extremity is also in a podiatry boot. She says she had a fracture of her left lower extremity some weeks ago. * PT OT on board. For precautions. * #RAUL: On CPAP nightly. #Hypertension: On Lopressor. #Hyperlipidemia: On statin #Hypothyroidism: On Synthroid #Anxiety and depression: On BuSpar and duloxetine. DVT prophylaxis: heparin Charges/Coding Visit Charges Inpatient E&M: 44842 Subs Hosp L2
--- NOTE | 2023-03-30 15:15 | CASEMGMT ---
DEWAYNE LOPEZ Assessment: RN CM to room to meet with patient for initial transition planning/care coordination assessment. RN JESSICA introduced self and role at [facility]. Patient lying in bed, alert and oriented, at bedside. Patient willing to participate in assessment and is able to answer all questions appropriately. Care providers, pharmacy, and demographics verified. PCP: Dr Michel Specialists: Dr Page, wallpaper inspector; Dr Cyn French, RA; Dr Lopez, pain mgnt- Par Preferred Pharmacy: [facility] Retail Insurance: [facility] [employer] Prescription Benefit: yes Living Will/HPOA: has both LW and HCPOA, who is her Forrest Owen LNOK: Living Arrangements: patient lives with in single story home with ramp entrance. Patient states she is independent at home w/ADL's. Pt and share home mgnt tasks. Pt manages her own medications. Transportation: DME: Patient has shower chair, raised toilet, grab bars, TSR's, walker (has but does not use), wheelchair, ankle boot, electric wheelchair, cpap, nebulizer at 4lpm at through [employer] and she states she has portable o2 tanks that she can use during the day, if needed. HHC/SNF: Patient states she has had HHC in the past. Patient has been to [facility] in the past. She denies need for HHC. Patient wishes to discharge home, denies need for home health at this time. Patient states she has no further needs or concerns at this time. CM to follow for discharge planning needs that may arise. Plan: Patient to discharge home with spousal support and discharge plans in place. Veronica VILLANUEVA RN, CM
--- NOTE | 2023-03-30 15:44 | DS.PCM_ITS ---
Providers Date of Admission: 03/29/23 Date of Discharge: 03/30/23 Primary Care Physician: Dr. Chrystal Michel, DO Consultations 03/30/23 00:29 Consult: Medication Reconciliation Technician / Pulmonary Medicine Routine Consulting Provider: Pulmonary Medicine suresh Farr Reason for Consult: AECOPD, follows w/ Dr. Raza EMERGENT Consult: No MD Notified: Yes Date Notified: 03/30/23 Time Notified: 07:00 Method of Notification: Text Reason For Visit: ALTERED MENTAL STATUS WITH HYPOXIA Diagnosis Discharge Diagnosis (1) Acute on chronic hypoxic respiratory failure: Status: Chronic Code(s): J96.21 - Acute and chronic respiratory failure with hypoxia (2) Acute kidney injury superimposed on chronic kidney disease: Status: Chronic Code(s): N17.9 - Acute kidney failure, unspecified; N18.9 - Chronic kidney disease, unspecified (3) Acute alteration in mental status: Status: Acute Code(s): R41.82 - Altered mental status, unspecified Plan #Hypoxia due to COPD/asthma exacerbation * on 4L of oxygen now * says she wears 4L of oxygen with her CPAP a night * had been treated for an URTI over the last few days prior to admission * CXR showed bilateral pleural effusions, slightly worse from previous CXR * respiratory panel negative. COVID negative. * pulmnology consulted * titrate oxygen to maintain sats >90% * breathing treatment with bronchodilators * #Danyel: Cr trending downards. Will continue to monitor. Cr is down to 1.19 from 2.06 on admission. #CAD: on plavix and statin. #Debility * Patient has right BKA and left lower extremity is also in a podiatry boot. She says she had a fracture of her left lower extremity some weeks ago. * PT OT on board. For precautions. * #RAUL: On CPAP nightly. #Hypertension: On Lopressor. #Hyperlipidemia: On statin #Hypothyroidism: On Synthroid #Anxiety and depression: On BuSpar and duloxetine. DVT prophylaxis: heparin Medications at Discharge Home Medications atorvastatin 80 mg tablet 80 mg PO QHS cholesterol 06/01/13 clopidogrel 75 mg tablet 75 mg PO DAILY anti platelet 06/01/13 metoprolol tartrate 25 mg tablet 12.5 mg PO BID blood pressure 06/01/13 lorazepam 1 mg tablet (Ativan) 1 mg PO BID-TID PRN Anxiety 11/17/18 hydroxyzine HCl 50 mg tablet 50 mg PO QHS 12/01/18 duloxetine 60 mg capsule,delayed release 60 mg PO BID 06/19/20 buspirone 7.5 mg tablet 7.5 mg PO BID 06/03/22 diclofenac sodium 75 mg tablet,delayed release 75 mg PO BID 08/23/22 furosemide 40 mg tablet 60 mg PO DAILY 08/23/22 hydroxychloroquine 200 mg tablet 200 mg PO BID 08/23/22 levothyroxine 50 mcg tablet 50 mcg PO DAILY 08/23/22 liothyronine 5 mcg tablet 25 mcg PO DAILY 08/23/22 pregabalin 50 mg capsule 50 mg PO DAILY 08/23/22 topiramate 25 mg tablet 50 mg PO QHS 08/23/22 triamcinolone acetonide 0.1 % topical cream 1 applic topical BID 08/23/22 albuterol sulfate 90 mcg/actuation aerosol inhaler 1 - 2 puff inhalation Q6H PRN PRN COPD #2 device 03/11/23 guaifenesin 1,200 mg tablet, extended release 12 hr 1,200 mg PO Q12H #60 tabs 03/11/23 ipratropium 0.5 mg-albuterol 3 mg (2.5 mg base)/3 mL nebulization soln 3 ml inhalation Q4H PRN SOB #180 mL 03/11/23 mometasone-formoterol HFA 200 mcg-5 mcg/actuation aerosol inhaler (Dulera) 2 inh inhalation BID #3 ea 03/11/23 montelukast 10 mg tablet 10 mg PO QPM #90 tabs 03/11/23 nystatin 100,000 unit/mL oral suspension 5 ml mucous membrane TID #250 mL tiotropium bromide 2.5 mcg/actuation mist for inhalation (Spiriva Respimat) 2 inh inhalation DAILY #3 ea 03/11/23 prednisone 20 mg tablet 40 mg (2 x 20 mg) PO DAILY #10 tabs 03/30/23 Hospital Course Operations None Procedures 2-D Echocardiogram Summary of Care Provided Minutes Spent on Discharge: 55 Hospital Course: Patient is a 67-year-old female with past medical history as outlined who was admitted in through the ED on 03/29/2023 with a complaint of altered mental status and shortness of breath. He altered mental status had largely resolved by the time she came into the ED. Patient's stated that patient has sev ere COPD and wears oxygen at home but it got more short of breath on the morning of admission. She had not been eating and drinking well as well. Has been states had been on antibiotics for upper respiratory tract infection. CT of the brain showed no acute intracranial pathology. Chest x-ray shows small bilateral pleural effusions which appear to have been worsened. Labs also significant for creatinine which was elevated at 2.06 with baseline creatinine of around 0.8. She was admitted and managed for mild exacerbation of COPD/asthma overlap syndrome and DANYEL. She was hydrated with IV fluids and placed on IV Solu-Medrol and breathing treatments and bronchodilators. She was initially on 4 L of oxygen but was subsequently weaned down to room air. Patient insisted on being discharged home on 03/30/2023 as she said she felt much better and was on room air. She was therefore discharged home on p.o. prednisone 40 mg daily for 5 days. She is to follow-up with her primary care doctor within 1 to 2 weeks. She is to use oxygen for shortness of breath at home as needed. Patient seen and examined prior to discharge. She had no complaints and had an uneventful night. Review of systems otherwise negative. Labs and vitals reviewed. Home medication reviewed and reconciled. Physical Exam Const alert General Appearance: cooperative and comfortable HEENT normocephalic, head/scalp atraumatic, hearing grossly normal bilaterally, nasal mucous membranes and turbinates normal and moist oral mucous membranes Mouth: oral and palatal mucosa normal Eyes PERRL, EOMs intact bilaterally and conjunctivae normal Neck full ROM, no lymphadenopathy and supple Lymph Lymphatic: no lymphadenopathy noted Chest inspection of chest normal Resp Resp Narrative: mildly diminished breath sounds bibasally, no wheezes or crackles. On On room air. Cardio regular rate, regular rhythm, S1 normal heart sound, S2 normal heart sound, no murmurs and peripheral pulses 2+ throughout GI normal to inspection, nondistended, normoactive bowel sounds, soft to palpation, non-tender and non-distended Back/Spine normal ROM Extremity normal to inspection, full ROM, normal capillary refill, no clubbing, cyanosis or edema, no calf tenderness and no pedal edema Skin no rashes or lesions noted General Skin Exam: no breakdown Neuro CN's II-XII intact bilaterally, moves all extremities, no focal motor deficits, no sensory deficits noted and deep tendon reflexes 2+ bilaterally Motor Exam: strength 5/5 throughout and general weakness Psych thought process normal and cooperative Appearance: appropriate Weight / BMI Weight Weight: 145 lb 11.609 oz Body Mass Index (BMI) 28.4 ABG / Lab / Microbiology Data 03/30/23 06:33 03/30/23 06:33 Laboratory: Laboratory Results - last 24 hr 03/29/23 13:45: PT 15.2 H, INR 1.2, APTT 29.1, B-Natriuretic Peptide 12.9 03/29/23 14:30: Ur Random Sodium 23, Urine Creatinine 147.00 03/30/23 06:33: WBC 10.4, RBC 3.54 L, Hgb 9.2 L, Hct 29.4 L, MCV 83.1, MCH 26.0 L, MCHC 31.3 L, RDW Std Deviation 52.8 H, RDW Coeff of Genaro 17.3 H, Plt Count 420, MPV 9.2, Sodium 140, Potassium 4.1, Chloride 110 H, Carbon Dioxide 27.0, Anion Gap 3 L, BUN 25 H, Creatinine 1.19 H, Estim Creat Clear Calc 32.95, Est GFR (MDRD) Af Amer 58 L, Est GFR (MDRD) Non-Af 48 L, BUN/Creatinine Ratio 21.0 H , Glucose 88, Calcium 8.0 L Microbiology: Microbiology 03/29/23 14:30 Urine Catheter - Catheter Urine Culture - Preliminary Culture exhibits no growth. 03/30/23 01:16 Mucosa - Nasopharyngeal Respiratory Panel (PCR) - Final 03/29/23 15:14 Nasal Secretion SARS-CoV-2 & FLU Antigen (Rapid) - Final D/C Instructions Discharge Diet: Low fat / Low cholesterol Weight Bearing Status: Weight bearing as tolerated Call your doctor if you observe: Fever of 101 or Higher, Shortness of breath, Dizziness, Swelling in the ankles, Chest pain and Increased palpitations (irregular heartbeat) Meaningful Use Info Meaningful Use Diagnoses (Choose all that apply): None applicable Discharge Plan Admission Admit Date/Time: 03/29/23 17:35 Primary Reason for Your Visit: COPD exacerbation Attending Provider: Le Alba Primary Care Provider: Chrystal Michel Consulting Providers: David Blackwell; Henry Page; Caesar Raza; Dorothy Lazcano; Sebastian Rich; Maricarmen Acevedo CHILD PROTECTIVE INVESTIGATOR Instructions Patient Instructions: COPD Meds, Chronic Lung Disease Aerobic Discharge Orders/Prescriptions Prescriptions: New prednisone 20 mg tablet 40 mg PO DAILY Qty: 10 0RF Continued lorazepam [Ativan] 1 mg tablet 1 mg PO BID-TID PRN (Reason: Anxiety) hydroxyzine HCl 50 mg tablet 50 mg PO QHS buspirone 7.5 mg tablet 7.5 mg PO BID albuterol sulfate 90 mcg/actuation HFA aerosol inhaler 1 - 2 puff INHALATION Q6H PRN PRN (Reason: COPD) Qty: 2 6RF ipratropium-albuterol 0.5 mg-3 mg(2.5 mg base)/3 mL solution for nebulization 3 ml INHALATION Q4H PRN (Reason: SOB) Qty: 180 3RF Dulera 200-5 mcg/actuation HFA aerosol inhaler 2 inh inhalation BID Qty: 3 3RF montelukast 10 mg tablet 10 mg PO QPM Qty: 90 3RF Spiriva Respimat 2.5 mcg/actuation mist 2 inh INHALATION DAILY Qty: 3 3RF nystatin 100,000 unit/mL suspension 5 ml mucous membrane TID Qty: 250 1RF Rx Instructions: swish and swallow 5 cc three times per day for 10 days guaifenesin 1,200 mg tablet extended release 12hr 1,200 mg PO Q12H Qty: 60 6RF clopidogrel 75 MG tablet 75 mg PO DAILY Patient Comments: STOPPED FRO SURGERY, DR INSTRUCTIONS atorvastatin 80 MG tablet 80 mg PO QHS metoprolol tartrate 25 MG tablet 12.5 mg PO BID duloxetine 60 MG capsule 60 mg PO BID furosemide 40 mg Tablet 60 mg PO DAILY topiramate 25 mg tablet 50 mg PO QHS liothyronine 5 mcg tablet 25 mcg PO DAILY triamcinolone acetonide 0.1 % cream 1 applic TOPICAL BID levothyroxine 50 mcg tablet 50 mcg PO DAILY diclofenac sodium 75 mg tablet,delayed release (DR/EC) 75 mg PO BID hydroxychloroquine 200 mg tablet 200 mg PO BID Patient Comments: TAKE 1 TABLET BY MOUTH TWICE DAILY pregabalin 50 mg capsule 50 mg PO DAILY Referrals / Follow Up: Chrystal Michel DO [Primary Care Provider] - Within 1 Week Disposition Disposition (needs filled in before D/C Order can be placed): Home, Self Care Charges/Coding Visit Charges Inpatient E&M: 53876 Disch Hosp >30min
--- NOTE | 2023-03-30 15:54 | PHA.DC_ITS ---
Pharmacy [facility] has performed discharge medication reconciliation and counseling for this patient. The patient's discharge medication list was reviewed for discrepancies and discrepancies were resolved. The patient was counseled on the following discharge medications and changes in medications for homegoing were reviewed. The Reason for Use, instructions for use, and potential side effects were reviewed for all new medications. The patient's questions regarding all of their medications were answered. 1. Prednisone 40 mg PO daily x 5 days The patient was able to verbally demonstrate an understanding of their discharge medications. Medications at Discharge Home Medications atorvastatin 80 mg tablet 80 mg PO QHS cholesterol 06/01/13 clopidogrel 75 mg tablet 75 mg PO DAILY anti platelet 06/01/13 metoprolol tartrate 25 mg tablet 12.5 mg PO BID blood pressure 06/01/13 lorazepam 1 mg tablet (Ativan) 1 mg PO BID-TID PRN Anxiety 11/17/18 hydroxyzine HCl 50 mg tablet 50 mg PO QHS 12/01/18 duloxetine 60 mg capsule,delayed release 60 mg PO BID 06/19/20 buspirone 7.5 mg tablet 7.5 mg PO BID 06/03/22 diclofenac sodium 75 mg tablet,delayed release 75 mg PO BID 08/23/22 furosemide 40 mg tablet 60 mg PO DAILY 08/23/22 hydroxychloroquine 200 mg tablet 200 mg PO BID 08/23/22 levothyroxine 50 mcg tablet 50 mcg PO DAILY 08/23/22 liothyronine 5 mcg tablet 25 mcg PO DAILY 08/23/22 pregabalin 50 mg capsule 50 mg PO DAILY 08/23/22 topiramate 25 mg tablet 50 mg PO QHS 08/23/22 triamcinolone acetonide 0.1 % topical cream 1 applic topical BID 08/23/22 albuterol sulfate 90 mcg/actuation aerosol inhaler 1 - 2 puff inhalation Q6H PRN PRN COPD #2 device 03/11/23 guaifenesin 1,200 mg tablet, extended release 12 hr 1,200 mg PO Q12H #60 tabs 03/11/23 ipratropium 0.5 mg-albuterol 3 mg (2.5 mg base)/3 mL nebulization soln 3 ml inhalation Q4H PRN SOB #180 mL 03/11/23 mometasone-formoterol HFA 200 mcg-5 mcg/actuation aerosol inhaler (Dulera) 2 inh inhalation BID #3 ea 03/11/23 montelukast 10 mg tablet 10 mg PO QPM #90 tabs 03/11/23 nystatin 100,000 unit/mL oral suspension 5 ml mucous membrane TID #250 mL 03/11/23 tiotropium bromide 2.5 mcg/actuation mist for inhalation (Spiriva Respimat) 2 inh inhalation DAILY #3 ea 03/11/23 prednisone 20 mg tablet 40 mg (2 x 20 mg) PO DAILY #10 tabs 03/30/23
== END 2023-03-30 16:13 | disposition home or self-care (01) | DRG 191 ==
LOC: ED 17:20 → PCU 18:06
PROVIDERS: Nurse Practitioner; Admitting Provider Hospitalist; Emergency Provider Emergency Medicine; PCP Family Medicine; Visit Provider Student in an Organized Health Care Education/Training Program
DX: J44.1 Chronic obstructive pulmonary disease with (acute) exacerbation (principal); J96.11 Chronic respiratory failure with hypoxia; N17.9 Acute kidney failure, unspecified; Z99.81 Dependence on supplemental oxygen; Z89.511 Acquired absence of right leg below knee; I12.9 Hypertensive chronic kidney disease with stage 1 through stage 4 chronic kidney disease, or unspecified chronic kidney disease; N18.9 Chronic kidney disease, unspecified; F32.A Depression, unspecified; E89.0 Postprocedural hypothyroidism; E78.5 Hyperlipidemia, unspecified; G47.33 Obstructive sleep apnea (adult) (pediatric); M79.7 Fibromyalgia; I25.10 Atherosclerotic heart disease of native coronary artery without angina pectoris; F41.9 Anxiety disorder, unspecified; J06.9 Acute upper respiratory infection, unspecified; Z66 Do not resuscitate; R53.81 Other malaise; R41.82 Altered mental status, unspecified; Z11.52 Encounter for screening for COVID-19; Z79.02 Long term (current) use of antithrombotics/antiplatelets; Z79.51 Long term (current) use of inhaled steroids; Z87.891 Personal history of nicotine dependence
CPT/HCPCS: 36415; 36600; 51702; 70450; 71045; 80048; 80053; 81001; 82570; 82803; 83605; 83880; 84300; 84484; 85025; 85027; 85610; 85730; 87040; 87086; 87428; 87633; 93005; 94640; 94668; 97162; 97166; 99252; 99285; 99406; J7030; A4216; G0463

== ENCOUNTER 2023-05-03 08:06 | Inpatient (IN) | payer MEDICARE, SELFPAY ==
[2023-05-03] VITALS (16 sets, daily range): BP systolic 97–126; BP diastolic 61–92; PULSE 101–125; RESP 12–24; TEMP 36.3–37.1; O2SAT 87–100; BMI 31.4; BMI 27.0
--- NOTE | 2023-05-03 08:22 | EDS_ITS ---
HPI History of Present Illness Chief Complaint: Nausea/Vomiting/Diarrhea Informant: patient and spouse/S.O. Onset/Context/Timing Onset: Weeks (2) Context: Gradual Onset Timing: Continuous Quality: Aching Location: Generalized Worsened by: Everything Relieved by: Nothing Narrative Narrative: Patient presents with nausea, vomiting, and chills that have been constant for the past 2 weeks. Patient states that it is gradually gotten worse. Patient states her primary care physician started her on antibiotics and steroids 6 days ago. Patient states she still has no improvement of her symptoms. Patient admits to some general myalgias. Patient states everything makes it worse. Patient states nothing makes her symptoms better. Patient admits to some subjective chills but did not take her temperature. Patient also admits to a sore throat. [facility] Medical History Anxiety Asthma Chronic back pain Chronic respiratory failure with hypoxia COPD (chronic obstructive pulmonary disease) Depression Diverticulitis Fibromyalgia GERD (gastroesophageal reflux disease) Heart disease History of bronchitis History of heart attack History of pneumonia HTN (hypertension) Hypothyroidism Incisional hernia Nausea and vomiting RAUL (obstructive sleep apnea) Osteoarthritis Osteoporosis Sleep apnea Spinal stenosis spinal stimulator Thyroid disorder TIA (transient ischemic attack) Home Medications atorvastatin 80 mg tablet 80 mg PO QHS cholesterol 06/01/13 [History Last Taken 05/25/14 80 MG] clopidogrel 75 mg tablet 75 mg PO DAILY anti platelet 06/01/13 [History Last Taken 12/11/18] metoprolol tartrate 25 mg tablet 12.5 mg PO BID blood pressure 06/01/13 [History Last Taken 06/26/20 05:00] lorazepam 1 mg tablet (Ativan) 1 mg PO BID-TID PRN Anxiety 11/17/18 [History Last Taken Unknown] hydroxyzine HCl 50 mg tablet 50 mg PO QHS 12/01/18 [History Last Taken Unknown] duloxetine 60 mg capsule,delayed release 60 mg PO BID 06/19/20 [History Last Taken Unknown] buspirone 7.5 mg tablet 7.5 mg PO BID 06/03/22 [History Last Taken Unknown] diclofenac sodium 75 mg tablet,delayed release 75 mg PO BID 08/23/22 [History Last Taken Unknown] furosemide 40 mg tablet 60 mg PO DAILY 08/23/22 [History Last Taken Unknown] hydroxychloroquine 200 mg tablet 200 mg PO BID 08/23/22 [History Last Taken Unknown] levothyroxine 50 mcg tablet 50 mcg PO DAILY 08/23/22 [History Last Taken Unknown] liothyronine 5 mcg tablet 25 mcg PO DAILY 08/23/22 [History Last Taken Unknown] pregabalin 50 mg capsule 50 mg PO DAILY 08/23/22 [History Last Taken Unknown] topiramate 25 mg tablet 50 mg PO QHS 08/23/22 [History Last Taken Unknown] triamcinolone acetonide 0.1 % topical cream 1 applic topical BID 08/23/22 [History Last Taken Unknown] albuterol sulfate 90 mcg/actuation aerosol inhaler 1 - 2 puff inhalation Q6H PRN PRN COPD #2 device 03/11/23 [Rx Last Taken Unknown] guaifenesin 1,200 mg tablet, extended release 12 hr 1,200 mg PO Q12H #60 tabs 03/11/23 [Rx Last Taken Unknown] ipratropium 0.5 mg-albuterol 3 mg (2.5 mg base)/3 mL nebulization soln 3 ml inhalation Q4H PRN SOB #180 mL 03/11/23 [Rx Last Taken Unknown] mometasone-formoterol HFA 200 mcg-5 mcg/actuation aerosol inhaler (Dulera) 2 inh inhalation BID #3 ea 03/11/23 [Rx Last Taken Unknown] montelukast 10 mg tablet 10 mg PO QPM #90 tabs 03/11/23 [Rx Last Taken Unknown] nystatin 100,000 unit/mL oral suspension 5 ml mucous membrane TID #250 mL 03/11/23 [Rx Last Taken Unknown] tiotropium bromide 2.5 mcg/actuation mist for inhalation (Spiriva Respimat) 2 inh inhalation DAILY #3 ea 03/11/23 [Rx Last Taken Unknown] prednisone 20 mg tablet 40 mg (2 x 20 mg) PO DAILY #10 tabs 03/30/23 [Rx Last Taken Unknown] Allergy/AdvReac Type Severity Reaction Status Date / Time cefaclor [From [facility]] Allergy Itching Verified 05/03/23 08:09 clarithromycin Allergy Hives Verified 05/03/23 08:09 doxycycline Allergy Itching Verified 05/03/23 08:09 Penicillins Allergy Hives Verified 05/03/23 08:09 Sulfa (Sulfonamide Allergy Hives Verified 05/03/23 08:09 Antibiotics) biotin AdvReac Unknown Unknown Verified 05/03/23 08:09 zolpidem [From Ambien] AdvReac Unknown mental Verified 05/03/23 08:09 issues Family History (Reviewed 03/11/23 @ 10:23 by Maricarmen Acevedo [employer]CAST MAINTENANCE ENGINEER, BR[employer]ADCAST MAINTENANCE ENGINEER-C) Father Asthma Heart disease Grandmother Breast cancer Diabetes Mother Heart disease COPD (chronic obstructive pulmonary disease) Other Cancer Surgical History H/O heart artery stent History of esophagogastroduodenoscopy (EGD) (~07/2018) History of incisional hernia repair (~12/20/18) History of incisional hernia repair Hx of cholecystectomy Previous back surgery S/P carpal tunnel release S/P correction of deviated nasal septum S/P hysterectomy S/P knee surgery Status post amputation of right foot Status post thyroidectomy Social History Smoking Status: Current every day smoker tobacco type: cigarettes Tobacco: How many years used: 25 second hand exposure: Yes alcohol intake: never substance use type: does not use caffeine: Yes what type of physical activity do you participate in: none frequency: does not exercise ROS ROS ED Constitutional Constitutional ED: Reports chills and subjective; Denies fever(s) Eyes Eyes: Denies blurry vision or change in vision ENT ENT ED: Reports sore throat; Denies rhinorrhea Cardiovascular Cardiovascular: Reports chest pain; Denies palpitations Respiratory/Chest Respiratory/Chest: Denies cough or dyspnea Gastrointestinal Gastrointestinal: Reports nausea and vomiting Genitourinary Genitourinary ED: Denies dysuria or hematuria Musculoskeletal Musculoskeletal: Reports myalgias Integumentary Denies abscess or rash Neurologic Neurologic: Reports headache(s); Denies weakness Allergic/Immunologic Allergic/Immunologic ED: Denies mouth swelling or urticaria EXAM Physical Exam Const Vital Signs: 05/03/23 08:07 05/03/23 09:32 05/03/23 09:53 Temperature 97.4 F L 97.6 F L 97.6 F L Temperature Source Temporal Temporal Temporal Pulse Rate 125 H 113 H 114 H Respiratory Rate 24 H 20 H 22 H Blood Pressure 126/92 H 108/66 107/68 Blood Pressure Mean 103 80 81 Pulse Ox 97 91 91 Oxygen Delivery Method Room Air Room Air Room Air Oxygen Flow Rate (L/min) 05/03/23 10:33 05/03/23 10:35 Temperature Temperature Source Pulse Rate 117 H Respiratory Rate 20 H Blood Pressure 104/84 H Blood Pressure Mean 90 Pulse Ox 96 96 Oxygen Delivery Method Nasal Cannula Nasal Cannula Oxygen Flow Rate (L/min) 2 2 Positive well nourished and well developed General Appearance ED: well developed and NAD HEENT Reports moist mucous membranes Neck supple and no JVD Resp normal respiratory effort Auscultation: diminished lung sounds diffuse Cardio regular rhythm Rate: tachycardic GI non-distended Palpation: soft and tender epigastric, LLQ, RLQ, LUQ, RUQ, periumbilical and suprapubic; Negative for guarding or rebound tenderness present Neuro oriented x3, CN's II-XII intact bilaterally and no sensory deficits noted Sensorium / Orientation: alert Motor Exam: strength 5/5 throughout MDM MDM MDM Narrative Medical decision making narrative: Differential diagnosis includes gastroenteritis, gastrointestinal bleeding, anemia, electrolyte abnormality, viral illness, urinary tract infection, pancreatitis, and pneumonia. Chest x-ray will be obtained to assess for pneumonia and pneumothorax. CBC will be obtained to assess for leukocytosis and anemia. Comprehensive metabolic profile will be obtained to assess for electrolyte abnormality, renal function, and hepatic function. Lipase will be obtained to assess for pancreatitis. Urinalysis will be obtained to assess for urinary tract infection. Lactate will be obtained to assess for sepsis. Lab Data Attestation: I reviewed the patient's lab results. Lab results narrative: CBC was reviewed. There is leukocytosis of 29.7. Hemoglobin was low at 8.6. This is consistent with previous result. Platelets were elevated at 754. Comprehensive metabolic profile was reviewed. BUN was 39 and creatinine was 1.35. These are consistent with prior results. Serum lactate was reviewed and was elevated at 4.8. Lipase was reviewed and was normal at 12. Urinalysis was reviewed. There is no evidence of urinary tract infection or hematuria. PT with INR and PTT were reviewed and were within normal limits. High-sensitivity troponin was reviewed and was normal at 19. COVID-19 PCR was reviewed and was negative. Influenza PCR was reviewed and was positive for influenza A but negative for influenza B. RSV PCR was reviewed and was negative. Labs: Laboratory Results - last 24 hr 05/03/23 05/03/23 08:38 09:26 WBC 29.7 H RBC 3.41 L Hgb 8.6 L Hct 27.9 L MCV 81.8 MCH 25.2 L MCHC 30.8 L RDW Std Deviation 54.9 H RDW Coeff of [place] 18.4 H Plt Count 754 H* MPV 9.6 Immature Gran % (Auto) 2.400 H Neut % (Auto) 81.1 H Lymph % (Auto) 11.1 L [place] % (Auto) 4.9 Eos % (Auto) 0.1 Baso % (Auto) 0.4 Absolute Neuts (auto) 24.1 H Absolute Lymphs (auto) 3.31 Nucleated RBC % 0.1 Differential Comment SCANNED Diff Path Review August foll Platelet Estimate MKD INC PT 14.2 INR 1.1 APTT 30.6 Sodium 138 Potassium 4.4 Chloride 104 Carbon Dioxide 23.0 Anion Gap 11 BUN 39 H Creatinine 1.35 H Estim Creat Clear Calc 41.99 Est GFR (MDRD) Af Amer 50 L Est GFR (MDRD) Non-Af 42 L BUN/Creatinine Ratio 28.9 H Glucose 180 H Lactic Acid 4.8 H* Calcium 8.9 Total Bilirubin 0.40 AST 20 ALT 12 L Alkaline Phosphatase 87 Troponin I High Sens 19 Total Protein 7.2 Albumin 2.2 L Globulin 5.0 H Albumin/Globulin Ratio 0.4 L Lipase 12 L Urine Color Yellow Urine Clarity Clear Urine pH 6.0 Ur Specific [place] 1.020 Urine Protein 15 H Urine Glucose (UA) Normal Urine Ketones 50 H Urine Occult Blood Negative Urine Nitrite Negative Urine Bilirubin 1 H Urine Urobilinogen Normal Ur Leukocyte Esterase Negative Urine RBC 0 SEEN Urine WBC 0 SEEN Ur Squamous Epith Cells 5-10 SEEN Urine Bacteria 0 SEEN Urine Mucus 0 SEEN Radiography Diagnostic Testing: Clinical Impression(s) from Imaging Studies Chest X-Ray 05/03/23 08:56 IMPRESSION: Degenerative changes, as described above. No demonstrated acute cardiopulmonary process. Electronically Signed: Reece Gupta MD at 9:37 EST , PA and lateral chest x-ray was obtained. There are 2 views. On my independent interpretation, lung prasad are clear. There is normal cardiac silhouette. Bony thorax shows some degenerative changes and prior fusion of the upper lumbar and lower thoracic spine. There is no acute process noted. Radiologist also interpreted the x-ray and agrees. EKG Initial EKG: Attestation: I personally reviewed and interpreted this EKG as follows: Interpretation: Sinus Tachycardia (115) and Non-Specific ST Changes Comments: EKG was obtained. On my independent interpretation, it shows sinus tachycardia with a rate of 115. NM interval was normal at 154 ms. QRS interval was normal at 86 ms. QTc interval was borderline at 489 ms. [place] was normal. There are nonspecific ST-T wave changes noted. Prior EKG tracings: available for review Prior: Unchanged (03/29/2023) Management Discussion w/another healthcare provider: Hospitalist (Dr. Almendarez) Treatment and Re-Evaluation :: Patient was given 500 cc of normal saline initially. Because of the elevated lactate and leukocytosis, patient did trigger sepsis. Because of this, PT with INR and PTT were obtained. Blood cultures were obtained. Urine culture was obtained. Patient was started on Cipro and vancomycin for unknown source. Case was discussed with the hospitalist for admission. She will obtain an ABG to determine if patient can go to general medical floor versus PCU. Patient and spouse understood and were agreeable with the plan. All questions were answered. Discharge Plan Dx/Rx/DC Orders Clinical Impression: Severe sepsis, COPD (chronic obstructive pulmonary disease), Influenza A Disposition Disposition: [facility]
[2023-05-03] MEDS: 0.9% Normal Saline (500mL Bag) 500 ML 1000 ML IV (08:51)
--- NOTE | 2023-05-03 08:56 | RAD_ITS ---
STUDY: X-RAY CHEST REASON FOR EXAM: Female, 67 years old. Chest pain TECHNIQUE: Frontal and lateral views of the chest. COMPARISON: March 29, 2020. FINDINGS: Lungs are hyperexpanded. There are mild fibrotic densities. There is no demonstrated pleural abnormality. Normal size heart. Normal mediastinum and gage. Normal visualized pulmonary arteries. Normal visualized aortic arch and descending thoracic aorta. There is compression fracture of the mid thoracic spine. There is fusion from the lower thoracic spine to lumbar spine with hardware including rods and pedicle screws. Normal visualized ribs, clavicles, and shoulders. There is no demonstrated abnormality of the visualized soft tissue structures of the upper abdomen. RAD/Chest PA and Lateral IMPRESSION: Degenerative changes, as described above. No demonstrated acute cardiopulmonary process. Electronically Signed: Reece Gupta MD at 9:37 EST ,
[2023-05-03 09:05] LABS: Absolute Lymphocyte Count 3.31 X10^3/uL (0.83-4.51); Absolute Neutrophil Count 24.1 X10^3/uL (2.0-7.7); Basophil# 0.12 X10^3/uL; Basophil% 0.4 % (0-1); Eosinophil# 0.03 X10^3/uL; Eosinophils% 0.1 % (0-5); Hematocrit 27.9 % (37-47); Hemoglobin 8.6 g/dL (12.0-15.0); Lymphocyte # 3.31 X10^3/ul (0.83-4.51); Lymphocyte % 11.1 % (19-41); Mean Corp Hgb Conc 30.8 g/dL (32-36); Mean Corpuscular Hgb 25.2 pg (27.0-32.0); Mean Corpuscular Volume 81.8 fL (81-99); Mean Platelet Vol. 9.6 fl (6.2-12.0); Monocyte# 1.46 X10^3/uL; Monocyte% 4.9 % (0-10); NRBC Flagged by Analyzer 0.1 % (0-5); Neutrophil # 24.08 X10^3/uL (2.7-7.7); Neutrophil % 81.1 % (47-70); POSITIVE COUNT YES; POSITIVE DIFFERENTIAL YES; RBC Distribution Width CV 18.4 % (11.6-14.6); RBC Distribution Width SD 54.9 fl (35.1-43.9); Red Blood Count 3.41 M/mm3 (4.2-5.4); White Blood Count 29.7 K/mm3 (4.4-11.0)
[2023-05-03 09:11] LABS: Differential Indicated SCAN CRITERIA MET; Platelet Count 754 K/mm3 (150-450)
[2023-05-03 09:15] LABS: ALB/GLOB Ratio 0.4 RATIO (0.9-2.4); AST(SGOT) 20 U/L (15-37); Alanine Aminotransfer ALT/SGPT 12 U/L (13-56); Albumin, Serum 2.2 g/dL (3.2-5.0); Alkaline Phosphatase 87 U/L (45-117); Anion Gap 11 (5-15); BUN 39 mg/dL (7-18); BUN/Creat Ratio 28.9 RATIO (10-20); Calcium,Total 8.9 mg/dL (8.5-10.1); Chloride 104 mmol/L (98-107); Creatinine, Serum 1.35 mg/dL (0.55-1.02); EST Glomerular Filtration Rate 42 mL/min (>60); Est Glom Filt Rate - Afr Amer 50 mL/min (>60); Estimated Creatinine Clearance 41.99 ml/min; Glucose 180 mg/dL (74-106); Lipase 12 U/L (13-75); Potassium 4.4 mmol/L (3.5-5.1); Protein, Total 7.2 g/dL (6.4-8.2); Sodium Level 138 mmol/L (136-145)
[2023-05-03 09:31] LABS: Bacteria 0 SEEN /hpf (None Seen); Mucous, Urine 0 SEEN /hpf (<or=2+); Red Blood Cells-Urine 0 SEEN /hpf (0-5); White Blood Cells 0 SEEN /hpf (0-5)
[2023-05-03 09:35] LABS: Differential Comment SCANNED; Platelet Estimate MKD INC (ADEQ)
[2023-05-03 09:38] LABS: Lactic Acid 4.8 mmol/L (0.4-1.9)
--- NOTE | 2023-05-03 09:56 | ED.RN ---
Sepsis triggered. Dr. Kirkpatrick notified. Per Dr. Kirkpatrick no fluid resuscitation at this time.
[2023-05-03 10:00] LABS: Color, Urine Yellow (Yellow); Glucose, Dipstick Normal (Normal); Ketone-Dipstick 50 mg/dl (Negative); Leukocyte Esterase-Dipstick Negative /ul (Negative); Nitrite-Dipstick Negative (Negative); Occult Blood-Urine Negative /ul (Negative); Protein-Dipstick 15 mg/dl (Negative); Urine Clarity Clear (Clear); Urine Urobilinogen Normal (Normal)
[2023-05-03 10:01] LABS: Squamous Epithelial Cells - UA 5-10 SEEN /hpf (5-10); Urine Bilirubin Dipstick 1 mg/dL (Negative)
--- NOTE | 2023-05-03 10:12 | EKG12_ITS ---
Test Reason : Blood Pressure : / mmHG Vent. Rate : 115 BPM Atrial Rate : 115 BPM P-R Int : 154 ms QRS Dur : 086 ms QT Int : 354 ms P-R-T Axes : 055 066 087 degrees QTc Int : 489 ms Sinus tachycardia Nonspecific ST and T wave abnormality Abnormal ECG Confirmed by MIKE HIRSCH, BIENVENIDO ([id number]), editor magazine SYLVIA NANCE ([id number]) on 05/05/2023 9:52:22 AM Referred By: Confirmed By:BIENVENIDO MCKEON MD
[2023-05-03] MEDS: 0.9% Normal Saline (1000mL) 1,000 ML 999 ML IV ×4 (10:27→18:31)
[2023-05-03 10:41] LABS: Troponin-I HS (w/2H Reflex) 19 pg/mL (3.0-54.0)
[2023-05-03] MEDS: Vancomycin HCl 1,750 MG in 0.9% Normal Saline (500mL Bag) 500 ML 250 MG IV (10:50)
[2023-05-03 10:59] LABS: International Normalized Ratio 1.1; Prothrombin Time (Protime)PT. 14.2 SECONDS (11.7-14.9)
[2023-05-03 11:01] LABS: Partial Thromboplast Time 30.6 Seconds (24.1-36.2)
--- NOTE | 2023-05-03 11:45 | NURSING ---
DR UNA MARX
[2023-05-03] MEDS: Ciprofloxacin 400 MG/200 ML BAG 200 MG IV (11:46)
[2023-05-03 12:10] LABS: Allen Test Positive; Base Excess -5 mmol/L (-2 to +2); Bicarbonate 20.8 mmol/L (22-26); Blood Gas Specimen Type ART; Mode Not entered; O2 Delivery Device Cannula; PO2 71 mmHG (75-100); SITE R Brach; SO2 93 % (95-99); Total Carbon Dioxide 22 mmol/L; pCO2 37.7 mmHg (35-45); pH 7.35 (7.35-7.45)
[2023-05-03 12:23] LABS: Reflex Troponin-HS? (from REC) Y
[2023-05-03 12:49] LABS: Reflex Lactate? Y
--- NOTE | 2023-05-03 12:54 | NURSING ---
MED SURG UNA INFLUENZA A, SEVERE SEPSIS, COPD
[2023-05-03 13:07] LABS: Troponin-I HS 20 pg/mL (3.0-54.0)
--- NOTE | 2023-05-03 13:13 | PCM.HP.STD ---
HPI - General General Date of Admission: 05/03/23 Date of Service: 05/03/23 Chief Complaint: Shortness of breath/nausea/vomiting/diarrhea HPI Narrative TAJ BLANK, is a 67 F who presented to the emergency department on 05/03/2023 with multiple complaints including nausea, vomiting, diarrhea, fatigue, generalized weakness, chills, fever with Tmax of 101 at home, shortness of breath, cough with sputum production, and abdominal pain. Patient states she is predominantly been having trouble since around [place]. She was seen as an outpatient was started on Levaquin and a prednisone taper. She was given 7 days of Levaquin for suspected pneumonia which she has completed and she still has about 4 days left of her prednisone taper. She states that this did not really help her symptoms at all. She is not a great historian so it is difficult to ascertain the timeframe on all of this. She also started having fevers and chills and again I am not quite sure when this happened and neither does she. She is unable to describe her diarrhea in detail but states she is having multiple episodes a day. She reports that the nausea and vomiting has decreased her oral intake and she is unclear if this was caused by her antibiotics or not. She is still coughing up yellowish looking sputum and has been wearing oxygen at 4 L at home. She typically wears oxygen at night bled into her CPAP at 4 L but is not on chronic oxygen during the day. Lately she has been wearing oxygen during the day due to her shortness of breath. She is not ambulatory at baseline. She denies chest pain or worsening leg swelling. Vital signs on presentation showed a temperature of 97.4, heart rate of 125, blood pressure was 126/92, respiratory was 24, oxygen saturation was 91% on room air and she was therefore placed on 2 L nasal cannula with improvement to her oxygenation to 96%. Her CBC showed a marked leukocytosis with a white count of 29.7 and a left shift with an 81.1% neutrophilia, chronic stable anemia with a hemoglobin of 8.6 and thrombocytosis with a platelet count of 754,000. Coags were normal. Chemistry panel revealed normal electrolytes with an elevated BUN/creatinine at 39 and 1.35 respectively which appears to be close to her baseline however baseline does appear to be fluctuating. Serum glucose was 180. Initial lactic acid was 4.8. Liver enzymes were normal. Troponin was normal. Lipase was 12. Her UA was overall unremarkable and showed no signs of infection. Chest x-ray showed degenerative changes with no acute cardiopulmonary process. PCR for COVID-19, influenza, and RSV was performed and she was influenza A positive. In the emergency department she received IV antibiotics with ciprofloxacin and vancomycin. Prior to getting antibiotics blood and urine cultures were sent. [facility] Medical History Anxiety Asthma Chronic back pain Chronic respiratory failure with hypoxia COPD (chronic obstructive pulmonary disease) Depression Diverticulitis Fibromyalgia GERD (gastroesophageal reflux disease) Heart disease History of bronchitis History of heart attack History of pneumonia HTN (hypertension) Hypothyroidism Incisional hernia Nausea and vomiting Normocytic anemia RAUL (obstructive sleep apnea) Osteoarthritis Osteoporosis Sleep apnea Spinal stenosis spinal stimulator Thyroid disorder TIA (transient ischemic attack) Home Medications atorvastatin 80 mg tablet 80 mg PO QHS cholesterol 06/01/13 [History Last Taken 05/25/14 80 MG] clopidogrel 75 mg tablet 75 mg PO DAILY anti platelet 06/01/13 [History Last Taken 12/11/18] metoprolol tartrate 25 mg tablet 12.5 mg PO BID blood pressure 06/01/13 [History Last Taken 06/26/20 05:00] lorazepam 1 mg tablet (Ativan) 1 mg PO BID-TID PRN Anxiety 11/17/18 [History Last Taken Unknown] hydroxyzine HCl 50 mg tablet 50 mg PO QHS 12/01/18 [History Last Taken Unknown] duloxetine 60 mg capsule,delayed release 60 mg PO BID 06/19/20 [History Last Taken Unknown] buspirone 7.5 mg tablet 7.5 mg PO BID 06/03/22 [History Last Taken Unknown] diclofenac sodium 75 mg tablet,delayed release 75 mg PO BID 08/23/22 [History Last Taken Unknown] furosemide 40 mg tablet 60 mg PO DAILY 08/23/22 [History Last Taken Unknown] hydroxychloroquine 200 mg tablet 200 mg PO BID 08/23/22 [History Last Taken Unknown] levothyroxine 50 mcg tablet 50 mcg PO DAILY 08/23/22 [History Last Taken Unknown] liothyronine 5 mcg tablet 25 mcg PO DAILY 08/23/22 [History Last Taken Unknown] pregabalin 50 mg capsule 50 mg PO DAILY 08/23/22 [History Last Taken Unknown] topiramate 25 mg tablet 50 mg PO QHS 08/23/22 [History Last Taken Unknown] triamcinolone acetonide 0.1 % topical cream 1 applic topical BID 08/23/22 [History Last Taken Unknown] albuterol sulfate 90 mcg/actuation aerosol inhaler 1 - 2 puff inhalation Q6H PRN PRN COPD #2 device 03/11/23 [Rx Last Taken Unknown] guaifenesin 1,200 mg tablet, extended release 12 hr 1,200 mg PO Q12H #60 tabs 03/11/23 [Rx Last Taken Unknown] ipratropium 0.5 mg-albuterol 3 mg (2.5 mg base)/3 mL nebulization soln 3 ml inhalation Q4H PRN SOB #180 mL 03/11/23 [Rx Last Taken Unknown] mometasone-formoterol HFA 200 mcg-5 mcg/actuation aerosol inhaler (Dulera) 2 inh inhalation BID #3 ea 03/11/23 [Rx Last Taken Unknown] montelukast 10 mg tablet 10 mg PO QPM #90 tabs 03/11/23 [Rx Last Taken Unknown] nystatin 100,000 unit/mL oral suspension 5 ml mucous membrane TID #250 mL 03/11/23 [Rx Last Taken Unknown] tiotropium bromide 2.5 mcg/actuation mist for inhalation (Spiriva Respimat) 2 inh inhalation DAILY #3 ea 03/11/23 [Rx Last Taken Unknown] prednisone 20 mg tablet 40 mg (2 x 20 mg) PO DAILY #10 tabs 03/30/23 [Rx Last Taken Unknown] Allergy/AdvReac Type Severity Reaction Status Date / Time cefaclor [From Ceclor] Allergy Itching Verified 05/03/23 08:09 clarithromycin Allergy Hives Verified 05/03/23 08:09 doxycycline Allergy Itching Verified 05/03/23 08:09 Penicillins Allergy Hives Verified 05/03/23 08:09 Sulfa (Sulfonamide Allergy Hives Verified 05/03/23 08:09 Antibiotics) biotin AdvReac Unknown Unknown Verified 05/03/23 08:09 zolpidem [From Ambien] AdvReac Unknown mental Verified 05/03/23 08:09 issues Family History Father Asthma Heart disease Grandmother Breast cancer Diabetes Mother Heart disease COPD (chronic obstructive pulmonary disease) Other Cancer Surgical History H/O heart artery stent History of esophagogastroduodenoscopy (EGD) (~07/2018) History of incisional hernia repair (~12/20/18) History of incisional hernia repair Hx of cholecystectomy Previous back surgery S/P carpal tunnel release S/P correction of deviated nasal septum S/P hysterectomy S/P knee surgery Status post amputation of right foot Status post thyroidectomy Social History Smoking Status: Former smoker Tobacco: How many years used: 25 second hand exposure: Yes alcohol intake: never substance use type: does not use caffeine: Yes what type of physical activity do you participate in: none frequency: does not exercise ROS Constitutional Constitutional: Reports anorexia, chills, fatigue, fever(s), malaise and weakness; Denies change in weight, night sweats or other Eyes Eyes: Denies blurry vision, change in eye color, change in vision, discharge from eye(s), double vision, erythema, eye pain, loss of vision or other ENT HEENT: Reports headache(s), nasal congestion and sinus pressure; Denies abnormal hearing, dysphagia, ear pain, epistaxis, hearing loss, nasal discharge, post nasal drip, sore throat or other Cardiovascular Cardiovascular: Denies chest pain, claudication, dyspnea on exertion, edema, lightheadedness, orthopnea, palpitations, paroxysmal nocturnal dyspnea, rapid heart rate, syncope or other Respiratory/Chest Respiratory/Chest: Reports cough, dyspnea, excessive phlegm production and productive cough; Denies hemoptysis, shortness of breath with exertion, wheezing or other Gastrointestinal Gastrointestinal: Reports abdominal pain, diarrhea, nausea and vomiting; Denies coffee ground emesis, constipation, dyspepsia, hematemesis, hematochezia, loose stools, melena or other Genitourinary Genitourinary: Reports urinary incontinence; Denies burning urination, difficulty urinating, dysuria, hematuria, nocturia, urinary frequency, urinary hesitancy, urinary urgency or other Musculoskeletal Musculoskeletal: Reports back pain, joint pain and joint stiffness; Denies arthralgias, joint swelling, myalgias, neck pain or other Neurologic Neurologic: Reports abnormal gait and headache(s); Denies abnormal speech, confusion, disequilibrium, dizziness, focal weakness, numbness, paresthesias, seizure-like activity, seizures, syncope, tingling, tremor(s) or other Psychiatric Psychiatric: Reports anxiety and depression; Denies homicidal ideation, suicidal ideation or other Endocrine Endocrinology: Denies change in body appearance, cold intolerance, excessive sweating, heat intolerance, polydipsia, polyuria or other Hematologic/Lymphatic Hematologic/Lymphatic: Denies anemia, easy bleeding, easy bruising, lymphadenopathy or other Vital Signs Vital Signs Vital Signs: 05/03/23 08:07 05/03/23 09:32 05/03/23 09:53 Temperature 97.4 F L 97.6 F L 97.6 F L Temperature Source Temporal Temporal Temporal Pulse Rate 125 H 113 H 114 H Respiratory Rate 24 H 20 H 22 H Blood Pressure 126/92 H 108/66 107/68 Blood Pressure Mean 103 80 81 Pulse Ox 97 91 91 Oxygen Delivery Method Room Air Room Air Room Air Oxygen Flow Rate (L/min) 05/03/23 10:33 05/03/23 10:35 05/03/23 12:33 Temperature Temperature Source Pulse Rate 117 H 107 H Respiratory Rate 20 H 16 Blood Pressure 104/84 H 97/63 Blood Pressure Mean 90 74 Pulse Ox 96 96 96 Oxygen Delivery Method Nasal Cannula Nasal Cannula Oxygen Flow Rate (L/min) 2 2 05/03/23 13:07 Temperature Temperature Source Pulse Rate 101 H Respiratory Rate 19 H Blood Pressure 115/61 Blood Pressure Mean 79 Pulse Ox 97 Oxygen Delivery Method Oxygen Flow Rate (L/min) Weight Weight: 65.771 kg Body Mass Index (BMI) 31.4 Physical Exam Const alert, oriented x3, no apparent distress and well nourished; Negative for average body habitus or healthy appearing Constitutional Narrative: Overweight, upper middle-aged, white female who appears much older than stated age, lying in bed, appears comfortable but does look acutely ill, at bedside, appears chronically ill General Appearance: cooperative HEENT normocephalic, head/scalp atraumatic, hearing grossly normal bilaterally and moist oral mucous membranes HEENT Narrative: Mallampati 3, thrush present Eyes PERRL and EOMs intact bilaterally; Negative for conjunctivae normal Eyes Narrative: Conjunctiva are mildly pale bilaterally, no scleral icterus Neck no lymphadenopathy and supple Neck Narrative: Neck is short and thick, trachea is midline, no noted thyroid enlargement Resp no retractions, no use of accessory muscles and No clear to auscultation bilaterally Resp Narrative: Coarse breath sounds bilaterally, few scattered wheeze that improved with cough, mild tachypnea but no signs of distress or extremis Auscultation: rhonchi and wheezes; Negative for crackles Cardio regular rhythm, S1 normal heart sound, S2 normal heart sound, no murmurs, no rub, no gallops and no clicks Cardio Narrative: Mild tachycardia GI normal to inspection, nondistended, normoactive bowel sounds and soft to palpation GI Narrative: Mild tenderness in the epigastric area Extremity Extremity Narrative: Trace bilateral lower extremity edema, no cyanosis or clubbing Skin no rashes or lesions noted, no wounds, skin turgor normal, no jaundice, no petechiae and no mottling Skin Narrative: Full exam was limited as patient was still in close however from what I could tell no lesions identified Neuro oriented x3, moves all extremities and no focal motor deficits Speech: speech normal Psych affect normal Psych Narrative: Eye contact is good, patient interacts appropriately, mood seems stable Results Lab / Micro Data 05/03/23 08:38 05/03/23 08:38 Labs: Laboratory Results - last 24 hr 05/03/23 08:38: WBC 29.7 H, RBC 3.41 L, Hgb 8.6 L, Hct 27.9 L, MCV 81.8, MCH 25.2 L, MCHC 30.8 L, RDW Std Deviation 54.9 H, RDW Coeff of [place] 18.4 H, Plt Count 754 H*, MPV 9.6, Immature Gran % (Auto) 2.400 H, Neut % (Auto) 81.1 H, Lymph % (Auto) 11.1 L, [place] % (Auto) 4.9, Eos % (Auto) 0.1, Baso % (Auto) 0.4, Absolute Neuts (auto) 24.1 H, Absolute Lymphs (auto) 3.31, Nucleated RBC % 0.1, Differential Comment SCANNED, Diff Path Review August, Platelet Estimate [employer]D INC, PT 14.2, INR 1.1, APTT 30.6, Sodium 138, Potassium 4.4, Chloride 104, Carbon Dioxide 23.0, Anion Gap 11, BUN 39 H, Creatinine 1.35 H, Estim Creat Clear Calc 41.99, Est GFR (MDRD) Af Amer 50 L, Est GFR (MDRD) Non-Af 42 L, BUN/Creatinine Ratio 28.9 H, Glucose 180 H, Lactic Acid 4.8 H*, Calcium 8.9, Total Bilirubin 0.40, AST 20, ALT 12 L, Alkaline Phosphatase 87, Troponin I High Sens 19, Total Protein 7.2, Albumin 2.2 L, Globulin 5.0 H, Albumin/Globulin Ratio 0.4 L, Lipase 12 L 05/03/23 09:26: Urine Color Yellow, Urine Clarity Clear, Urine pH 6.0, Ur Specific [place] 1.020, Urine Protein 15 H, Urine Glucose (UA) Normal, Urine Ketones 50 H, Urine Occult Blood Negative, Urine Nitrite Negative, Urine Bilirubin 1 H, Urine Urobilinogen Normal, Ur Leukocyte Esterase Negative, Urine RBC 0 SEEN, Urine WBC 0 SEEN, Ur Squamous Epith Cells 5-10 SEEN, Urine Bacteria 0 SEEN, Urine Mucus 0 SEEN 05/03/23 12:35: Troponin I High Sens 20 Micro: Microbiology 05/03/23 08:38 Mucosa - Nose SARS-CoV-2, Influenza & RSV (PCR) - Final Influenzae A ABG Data ABG results: ABG 05/03/23 12:06 Specimen Type ART Sample Site R Brach pH 7.35 Bicarbonate Actual 20.8 L Total CO2 22 Base Excess -5 L O2 Saturation 93 L O2 % 2.0 ABG pCO2 37.7 ABG pO2 71 L Luke Test Positive O2 Delivery Device Cannula Vent Mode Not entered Imagaing Radiology Impression Chest X-Ray 05/03/23 08:56 IMPRESSION: Degenerative changes, as described above. No demonstrated acute cardiopulmonary process. Electronically Signed: Reece Gupta MD at 9:37 EST , Assessment & Plan Assessment/Plan (1) Influenza A: (2) Sepsis: (3) Oral thrush: (4) Nausea & vomiting: (5) Hypoxia: (6) CAP (community acquired pneumonia): (7) Lactic acidosis: (8) Leukocytosis: (9) Thrombocytosis: (10) Elevated serum creatinine: PLAN: Plan Sepsis secondary to influenza A/+-superimposed bacterial pneumonia -Patient meets criteria for sepsis with tachycardia, elevated respiratory rate, markedly elevated white blood cell count, lactic acidosis, new hypoxia, and suspected source -Blood, sputum, urine cultures are pending -Sepsis protocol -IV steroids -Mucinex 1200 mg twice daily -Check strep pneumo and Legionella antigens -Aggressive pulmonary toilet with I-S and Acapella -Scheduled DuoNebs and as needed albuterol -Fluid bolus at 30 cc/kg of body weight was given -Patient had recently been on Levaquin as an outpatient so we will utilize broad-spectrum antibiotics with more aggressive coverage to include vancomycin and cefepime due to penicillin allergy -Will hold Plaquenil while working up infection--> it is not clear at this time why she is taking it Lactic acidosis -Suspect related to the above and underlying hypoxia -Fluid boluses given -Cycle lactate per protocol and assess for clearance Leukocytosis/thrombocytosis -Suspect reactive from infection -Patient has also been on steroids -If thrombocytosis does not improve with antibiotic use could consider iron studies as iron deficiency anemia can increase platelet count and patient is anemic however this appears to be chronic and she is at baseline -Repeat CBC in a.m. Elevated serum creatinine -At baseline is unclear -Fluid boluses given -Reassess in a.m. -Hold NSAIDs -Hold Lasix for today but if blood pressure is stable would restart tomorrow if she does have pulmonary hypertension related to her COPD Oral thrush -Nystatin suspension swish for 7 days -Monitor Nausea/vomiting/diarrhea -Check enteric panel -Check C. difficile -Start Protonix 40 mg twice daily -Etiology is unclear -Liver enzymes are unremarkable and patient has history of cholecystectomy -May be related to antibiotic use at home or potential C. difficile infection with diarrhea -Will continue to monitor -As needed Zofran is available with promethazine for breakthrough History of RAUL -Continue CPAP with 4 L bleed and pressure of 12 cmH2O -Patient on nebulizers while hospitalized -Will hold home inhalers Hypothyroidism -Continue home Synthroid -Continue liothyronine Chronic hypoxic respiratory failure secondary to COPD -Per pulmonary notes patient is supposed to be on 2 L [id number] however she is only wearing this as needed per my discussion with her on admission -Will have to verify what her home order is for because she tells me she utilizes 4 L if she feels like she needs it -Most recent PFTs from 01/01/2023 show a reversible moderately severe large airway obstruction with an FEV1 of 1 of 52% predicted and a DLCO of 33% -Patient does follow with an outpatient and sees Dr. Page at baseline -Recommend outpatient follow-up after discharge CAD/HTN/HPL -Continue home atorvastatin -Continue home Plavix -Continue home metoprolol -Hold home Lasix due to the appearance of mild dehydration on presentation Anxiety/depression/fibromyalgia -Continue home Topamax -Continue home Cymbalta -Continue home BuSpar -Continue home lorazepam -Continue nightly hydroxyzine DVT prophylaxis -Enoxaparin 40 mg daily CODE STATUS -DNR CCA okay for short-term intubation per discussion on admission Sepsis Attestation Sepsis Alert: Yes Sepsis Attestation: Agree w/Sepsis Date exam was performed: 05/03/23 Time exam was performed: 12:00 Possible Source of Sepsis: Pulmonary Sepsis Organ Dysfunction Criteria Present: Lactic Acid > 2 mmol/L Fluid Resuscitation Fluid resuscitation indicated?: Yes Fluid Resuscitation ordered: 30 ml/kg fluid bolus ordered Amount of fluid ordered: 2,000 Sepsis Note Date exam was performed: 05/03/23 Time exam was performed: 15:00 Sepsis Attestation: Sepsis re-evaluation was performed (Patient was fluid responsive with resolution of her lactic acidosis) Charges/Coding Visit Charges Inpatient E&M: 58923 Init Hosp L3
[2023-05-03] MEDS: Ipratropium/Albuterol Sulfate 3 ML AMPUL.NEB INHALATION ×3 (16:01→23:12)
--- NOTE | 2023-05-03 16:22 | PCM.RX.CS ---
Consult Antibiotic Management Pharmacy has been consulted to manage selected antibiotic: Vancomycin Suspected Infection Suspected Infection: Pneumonia Labs Labs: Sodium 138 mmol/L (136-145) 05/03/23 08:38 Potassium 4.4 mmol/L (3.5-5.1) 05/03/23 08:38 Chloride 104 mmol/L (98-107) 05/03/23 08:38 Carbon Dioxide 23.0 mmol/L (21.0-32.0) 05/03/23 08:38 Anion Gap 11 (5-15) 05/03/23 08:38 BUN 39 mg/dL (7-18) H 05/03/23 08:38 Creatinine 1.35 mg/dL (0.55-1.02) H 05/03/23 08:38 Est GFR (MDRD) Af Amer 50 mL/min (>60) L 05/03/23 08:38 Est GFR (MDRD) Non-Af 42 mL/min (>60) L 05/03/23 08:38 BUN/Creatinine Ratio 28.9 RATIO (10-20) H 05/03/23 08:38 Glucose 180 mg/dL (74-106) H 05/03/23 08:38 Microbiology Microbiology: Microbiology 05/03/23 08:38 Mucosa - Nose SARS-CoV-2, Influenza & RSV (PCR) - Final Influenzae A Goal Trough Goal Trough: 15-20 mcg/mL Pharmacy Plan for Drug Dosing Pharmacy Plan for Drug Dosing: [facility] IV VANCOMYCIN Consulting Physician: Dr. Clive Almendarez Indication: Pneumonia Goal Trough: 15-20 SrCr: 1.35 CrCl: 42 ml/min Comments: patient had initial dose of 1750mg IV x1 in ED 05/03/23 @1050 Vancomycin Dose: 500mg IV Q12hr to start 05/03/23 @2300 Pending Level: 05/04/23 @2230, prior to 4th total dose per protocol Pharmacy Service will continue to monitor and adjust dosing as required.
[2023-05-03] MEDS: Ensure Plus High Protein 120 ML LIQUID PO (16:41)
[2023-05-03] MEDS: guaiFENesin 1,200 MG Tablet 1200 MG PO (16:42)
[2023-05-03] MEDS: 0.9% Saline Lock 10 ML Syringe IV (16:43)
[2023-05-03] MEDS: Cefepime HCl 2 GM in 0.9% Normal Saline (100mL MB+) 100 ML IV (18:22)
[2023-05-03 18:23] LABS: M R Staph aureus DNA By PCR Negative (Negative); Probe Check PASS; Specimen Processing Control PASS
[2023-05-03] MEDS: NYSTATIN 500,000 UNIT/5 ML UDC 500000 UNIT PO ×2 (18:23→22:23)
[2023-05-03] MEDS: Vancomycin IV 500 MG/100 ML BAG 100 MG IV (22:23)
[2023-05-04] VITALS (24 sets, daily range): BP systolic 102–133; BP diastolic 33–91; PULSE 71–108; RESP 16–24; TEMP 36.4–37.2; O2SAT 85–97
[2023-05-04] MEDS: Ipratropium/Albuterol Sulfate 3 ML AMPUL.NEB INHALATION ×5 (02:55→19:36)
--- NOTE | 2023-05-04 04:08 | NURSING ---
Became increasingly confused overnight. Was anxious and fearful saying we took her mom, dad, and babies. After speaking to the patient for a while it seems that she is watching two of her great grandbabies. Her grandson recently broke up with and has been staying with Codi with the children. Codi seems very stressed about having to watch the two children. She said, I only have one leg!
[2023-05-04] MEDS: 0.9% Saline Lock 10 ML Syringe IV ×3 (06:19→23:38)
[2023-05-04 06:22] LABS: Absolute Lymphocyte Count 0.96 X10^3/uL (0.83-4.51); Absolute Neutrophil Count 21.7 X10^3/uL (2.0-7.7); Basophil# 0.04 X10^3/uL; Basophil% 0.2 % (0-1); Hematocrit 18.8 % (37-47); Hemoglobin 5.9 g/dL (12.0-15.0); Lymphocyte # 0.96 X10^3/ul (0.83-4.51); Mean Corp Hgb Conc 31.4 g/dL (32-36); Mean Corpuscular Hgb 25.5 pg (27.0-32.0); Mean Corpuscular Volume 81.4 fL (81-99); Mean Platelet Vol. 9.6 fl (6.2-12.0); Monocyte# 0.42 X10^3/uL; Monocyte% 1.8 % (0-10); NRBC Flagged by Analyzer 0 % (0-5); Neutrophil # 21.67 X10^3/uL (2.7-7.7); POSITIVE COUNT YES; POSITIVE DIFFERENTIAL YES; RBC Distribution Width CV 18.5 % (11.6-14.6); RBC Distribution Width SD 55.8 fl (35.1-43.9); Red Blood Count 2.31 M/mm3 (4.2-5.4); White Blood Count 23.8 K/mm3 (4.4-11.0)
[2023-05-04 06:55] LABS: ALB/GLOB Ratio 0.5 RATIO (0.9-2.4); AST(SGOT) 17 U/L (15-37); Alanine Aminotransfer ALT/SGPT 10 U/L (13-56); Alkaline Phosphatase 62 U/L (45-117); Anion Gap 7 (5-15); BUN 21 mg/dL (7-18); BUN/Creat Ratio 30.7 RATIO (10-20); Calcium,Total 7.3 mg/dL (8.5-10.1); Chloride 117 mmol/L (98-107); Creatinine, Serum 0.68 mg/dL (0.55-1.02); EST Glomerular Filtration Rate 91 mL/min (>60); Est Glom Filt Rate - Afr Amer 110 mL/min (>60); Estimated Creatinine Clearance 52.38 ml/min; Globulin 3.7 g/dL (2.2-4.2); Glucose 140 mg/dL (74-106); Magnesium 1.9 mg/dL (1.6-2.6); Phosphorus 1.5 mg/dL (2.5-4.9); Potassium 3.7 mmol/L (3.5-5.1); Protein, Total 5.7 g/dL (6.4-8.2); Sodium Level 143 mmol/L (136-145)
[2023-05-04 07:31] LABS: Differential Indicated SCAN CRITERIA MET
[2023-05-04 07:32] LABS: Anisocytosis 2+; Hypochromasia 3+; Platelet Estimate MKD INC (ADEQ)
--- NOTE | 2023-05-04 08:18 | CT_ITS ---
STUDY: CT ABDOMEN AND PELVIS WITH CONTRAST REASON FOR EXAM: Female, 67 years old. Assess for source of lower GI bleed RADIATION DOSAGE (If Supplied By Facility): CTDIvol = ( 12.46 ) mGy, DLP = ( 647.36 ) mGycm TECHNIQUE: IV 100mL Isovue-300 was administered. Transaxial images were obtained from the dome of the diaphragm to the symphysis pubis in the arterial, nephrographic and excretory phases. Multiplanar coronal and sagittal images were reformatted. Individualized Dose Optimization Techniques Were Used For This CT. COMPARISON: No relevant prior comparison study available FINDINGS: The visualized portions of lung bases demonstrate atelectatic changes. The visualized portions of the heart are within normal limits. Normal liver. Normal gallbladder and extrahepatic biliary system. Normal spleen. Normal pancreas. Normal bilateral adrenal glands. Small simple cysts in the left kidney for which no further follow-up exam is needed. No evidence of hydronephrosis. Thickening of the gastric antrum or pylorus difficult to accurately evaluate on this exam. Normal in caliber small bowel loops. Fecal retention. Diverticulosis without evidence of acute diverticulitis. There is non-visualization of the appendix. There is diffuse atherosclerotic calcification of the abdominal aorta with elongation and tortuosity, but without a demonstrated aneurysm. No retroperitoneal adenopathy. Normal urinary bladder. There is absence of the uterus consistent with a prior hysterectomy. Normal abdominal wall. Severe compression fracture of T12 vertebra. Fusion of the lower thoracic and lumbar spine extending from T11 to L5. CT/Abdomen/Pelvis W IV Cont ONLY IMPRESSION: 1. Thickening of the gastric antrum and pylorus difficult to accurately evaluate on this exam. Correlation with endoscopy is recommended. 2. Diverticulosis without evidence of acute diverticulitis. 3. Otherwise no focal acute inflammatory process. Electronically Signed: Agustín Norman MD at 9:57 EST ,
[2023-05-04 08:27] LABS: Ferritin 220 ng/mL (8-252); Iron 67 ug/dL (50-170); Iron Binding Capacity,Total 281 ug/dL (250-450); PERCENT IRON SATURATION 23.8 % (15.0-55.0)
--- NOTE | 2023-05-04 10:30 | CASEMGMT ---
DEWAYNE LOPEZ Assessment Face to Face with patient for initial transition planning/care coordination assessment. DEWAYNE LOPEZ introduced self and role at [facility], pt voices understanding. Pt is A&Ox3 and is resting comfortably in bed with at bedside. Pt did get emotional during our conversation regarding her amputated foot and also the fracture in her Lt leg. This RN JESSICA gave her time to recuperate until finishing the assessment. Care providers, pharmacy, and demographics verified. Admitting dx:Hypoxia, Influezna A LACE Strata: 3 PCP: Anand Specialists: Dr Page (Outside Cutter), Dr. Wilkerson (Ophthalmology), Dr Lopez for pain management -[facility] Preferred Pharmacy: [facility] Insurance:[facility] [employer] Prescription Benefit: Yes LNOK: Forrest Owen () Living Arrangements: Pt lives with her in a one story home with a basement and a ramp to enter the home. Pt states the home is handicap incorporated. ADLs/IADLs: Pt is non-ambulatory at baseline. Pt states she has a history of Rt foot amputation and she utilizes a wheelchair. Pt also states that she has a fracture in her Lt leg as of December 2022 from transferring from one chair to another. Pt states she is independent with ADLs and needs assistance with IADLs and her helps her. Transportation: DME: Pt reports shower chair with a grab bar. Raised toilet with grab bars. Walker but does not use. Pt states she utilizes an electrical wheelchair at home. Pt has an ankle boot on currently to her Lt leg. States she wears 4L continuous at home via [employer]. This RN verifies O2 through [employer] and they state the pt has a current order for 4L continuous through [employer]. Pt also wears a CPAP at night. HHC/SNF: Pt states she was admitted to a SNF 4-5 years ago for bone disease. Pt states she did not have a good experience and does not wish to return. Pt states she also had HHC SN and PT 4-5 years ago but could not remember the Agencies name. Pt?s goal: DC Home with her Plan: Dr. Blackwell updated on pt status and states he will order PT/ OT to eval. Will follow O2. Pt states that she does not want outpatient therapy, HHC, or SNF placement at this time. Bernabe Dixon RN, CM
[2023-05-04 12:12] LABS: Pathologist Review Reviewed
[2023-05-04 12:15] LABS: Pathologist Review Reviewed
[2023-05-04] MEDS: NYSTATIN 500,000 UNIT/5 ML UDC 500000 UNIT PO ×4 (12:33→20:48)
[2023-05-04] MEDS: Pantoprazole Sodium 40 MG Tablet PO (12:33)
[2023-05-04] MEDS: guaiFENesin 1,200 MG Tablet 1200 MG PO ×2 (12:34→20:48)
[2023-05-04] MEDS: Cefepime HCl 2 GM in 0.9% Normal Saline (100mL MB+) 100 ML IV ×2 (12:44→21:00)
[2023-05-04] MEDS: Vancomycin IV 500 MG/100 ML BAG 100 MG IV ×2 (13:43→23:36)
[2023-05-04] MEDS: Pantoprazole Sodium 40 MG in 0.9% Normal Saline (100mL MB+) 100 ML 330 MG IV ×2 (15:40→21:51)
[2023-05-04] MEDS: Ensure Plus High Protein 120 ML LIQUID PO (15:40)
--- NOTE | 2023-05-04 15:42 | PRO.PCM_ITS ---
Procedure Report Date of Procedure: 05/04/23 Assessment & Plan Assessment/Plan (1) Sepsis: QUALIFIERS: Sepsis type: sepsis due to unspecified organism Sepsis acute organ dysfunction status: unspecified Qualified Code(s): A41.9 - Sepsis, unspecified organism Procedures Radiology Radiology Access Procedures: PICC Procedure Time Out Time Out Informed consent given: Yes Consent signed: Yes Time out checklist: patient, procedure, site marked/identified, positioning of patient, supplies available and allergies confirmed Time out verified: Yes Time out date: 05/04/23 Time out time: 14:23 PICC Line Consent Screening tool completed:: Yes Consent obtained:: Yes Consent given by (patient or responsible constitution party):: patient Line successful (if no, document why in comments):: Yes Insertion Reason for Insertion: Poor Venous Access Date of Insertion: 05/04/23 Ok to use: Yes Type of PICC inserted: Dual Power PICC PICC Lot #: [id number] PICC Reference #: [id number] Microintroducer Used: Yes (in kit) Ultrasound/Equipment Used: Probe Cover Kit Trimmed Length (cm): 40 Insertion Length (cm): 40 Exposed Length (cm): 0 Tip Placement: Caval Atrial Junction Placement Confirmation: 3CG Insertion Vein: Right Basilic Insertion Attempts: 1 Local Anesthesia Used: Lidocaine 1% (in kit) Dressing Applied: Statlock and Tegaderm CHG Arm Measurement above site (in cm): 22 Patient Tolerated Procedure: Well Threading Difficulties: No Comments Comment: Patient identity was verified with two patient identifiers. Informed consent was obtained and time-out was completed. Hands were sanitized. The patient was positioned supine with right arm at 90 degrees. The patient's upper arm vasculature was assessed using ultrasound, and the right basilic vein was externally marked. An external measurement was obtained of 40 cm. External leads were applied to the patient's right upper chest and laterally and inferior of the umbilicus on the mid axillary line. Cap, mask, and prep gloves were donned. The underdrape was placed under the patient's arm. The site was prepped with chlorhexidine, and tourniquet was loosely applied. Prep gloves were discarded, and hands were sanitized. The sterile kit was opened with additional supplies dropped in. Sterile gown and gloves were donned, and the patient was draped. The sterile kit was assembled with all needle, introducer, connector, and catheter flushed with sterile normal saline. The marked site of insertion was anesthetized with 1% lidocaine. Patient tolerated well. The right basilic vein was then accessed using ultrasound guidance and guidewire was inserted to safety jessica. The tourniquet was released. The access needle was removed while securing the guidewire in place. The site was again anesthetized with 1% lidocaine, prior to insertion of introducer sheath and dilator. Patient tolerated well. The catheter was trimmed to a length of 40 cm. Using 3C guidance, the catheter was then inserted through the introducer sheath, slowly. There was no resistance on insertion. Maximal p-wave, without deflection, was obtained at an insertion length of 40 cm, leaving 0 cm external. The introducer sheath was retracted and peeled away, incrementally, while keeping the catheter secured. The stylet was removed. A flushed needleless connector was attached to each lumen. Blood return was verified and each lumen was flushed with sterile normal saline in a pulsatile fashion. Total sterile flushes used for the insertion was 6 10 ml syringes, 2 from PICC cath. Finally, the insertion site was cleaned with chlorhexidine, and the catheter was secured using a StatLock. The site was covered with a Tegaderm CHG Dressing. Baseline arm circumference was obtained at the insertion site and measured 22 cm. The patient was provided with a patient education handout on PICC line care and verbalized understanding of infection prevention, heavy lifting restriction, maintaining mobility, and watching for any signs of infection.
--- NOTE | 2023-05-04 16:02 | CON.PCM.GI_ITS ---
HPI Consult Data Date of Consult: 05/05/23 HPI Narrative Reason for Consultation: Merna HPI Narrative: TAJ BLANK, is a 67 F who presented to the emergency department on 05/03/2023 with multiple complaints including nausea, vomiting, diarrhea, fatigue, generalized weakness, chills, fever with Tmax of 101 at home, shortness of breat h, cough with sputum production, and abdominal pain. Patient states she is predominantly been having trouble since around [place]. She was seen as an outpatient was started on Levaquin and a prednisone taper. She was given 7 days of Levaquin for suspected pneumonia which she has completed and she still has about 4 days left of her prednisone taper. She states that this did not really help her symptoms at all. She also started having fevers and chills and again I am not quite sure when this happened and neither does she. She is unable to describe her diarrhea in detail but states she is having multiple episodes a day. She reports that the nausea and vomiting has decreased her oral intake and she is unclear if this was caused by her antibiotics or not. She is still coughing up yellowish looking sputum and has been wearing oxygen at 4 L at home. She typically wears oxygen at night bled into her CPAP at 4 L but is not on chronic oxygen during the day. L Vital signs on presentation showed a temperature of 97.4, heart rate of 125, blood pressure was 126/92, respiratory was 24, oxygen saturation was 91% on room air and she was therefore placed on 2 L nasal cannula with improvement to her oxygenation to 96%. Her CBC showed a marked leukocytosis with a white count of 29.7 and a left shift with an 81.1% neutrophilia, chronic stable anemia with a hemoglobin of 8.6 and thrombocytosis with a platelet count of 754,000. Coags were normal. Chemistry panel revealed normal electrolytes with an elevated BUN/creatinine at 39 and 1.35 respectively which appears to be close to her baseline however baseline does appear to be fluctuating. Serum glucose was 180. Initial lactic acid was 4.8. Liver enzymes were normal. Troponin was normal. Lipase was 12. Her UA was overall unremarkable and showed no signs of infection. Chest x-ray showed degenerative changes with no acute cardiopulmonary process. PCR for COVID-19, influenza, and RSV was performed and she was influenza A positive. In the emergency department she received IV antibiotics with ciprofloxacin and vancomycin. [facility] Medical History Anxiety Asthma Chronic back pain Chronic respiratory failure with hypoxia COPD (chronic obstructive pulmonary disease) Depression Diverticulitis Fibromyalgia GERD (gastroesophageal reflux disease) Heart disease History of bronchitis History of heart attack History of pneumonia HTN (hypertension) Hypothyroidism Incisional hernia Nausea and vomiting Normocytic anemia RAUL (obstructive sleep apnea) Osteoarthritis Osteoporosis Sleep apnea Spinal stenosis spinal stimulator Thyroid disorder TIA (transient ischemic attack) Home Medications atorvastatin 80 mg tablet 80 mg PO QHS cholesterol 06/01/13 [History Last Taken 05/25/14 80 MG] clopidogrel 75 mg tablet 75 mg PO DAILY anti platelet 06/01/13 [History Last Taken 12/11/18] metoprolol tartrate 25 mg tablet 12.5 mg PO BID blood pressure 06/01/13 [History Last Taken 06/26/20 05:00] lorazepam 1 mg tablet (Ativan) 1 mg PO BID-TID PRN Anxiety 11/17/18 [History Last Taken Unknown] hydroxyzine HCl 50 mg tablet 50 mg PO QHS 12/01/18 [History Last Taken Unknown] duloxetine 60 mg capsule,delayed release 60 mg PO BID 06/19/20 [History Last Taken Unknown] buspirone 7.5 mg tablet 7.5 mg PO BID 06/03/22 [History Last Taken Unknown] diclofenac sodium 75 mg tablet,delayed release 75 mg PO BID 08/23/22 [History Last Taken Unknown] furosemide 40 mg tablet 60 mg PO DAILY 08/23/22 [History Last Taken Unknown] hydroxychloroquine 200 mg tablet 200 mg PO BID 08/23/22 [History Last Taken Unknown] levothyroxine 50 mcg tablet 50 mcg PO DAILY 08/23/22 [History Last Taken Unknown] liothyronine 5 mcg tablet 25 mcg PO DAILY 08/23/22 [History Last Taken Unknown] pregabalin 50 mg capsule 50 mg PO DAILY 08/23/22 [History Last Taken Unknown] topiramate 25 mg tablet 50 mg PO QHS 08/23/22 [History Last Taken Unknown] triamcinolone acetonide 0.1 % topical cream 1 applic topical BID 08/23/22 [History Last Taken Unknown] albuterol sulfate 90 mcg/actuation aerosol inhaler 1 - 2 puff inhalation Q6H PRN PRN COPD #2 device 03/11/23 [Rx Last Taken Unknown] guaifenesin 1,200 mg tablet, extended release 12 hr 1,200 mg PO Q12H #60 tabs 03/11/23 [Rx Last Taken Unknown] ipratropium 0.5 mg-albuterol 3 mg (2.5 mg base)/3 mL nebulization soln 3 ml inh alation Q4H PRN SOB #180 mL 03/11/23 [Rx Last Taken Unknown] mometasone-formoterol HFA 200 mcg-5 mcg/actuation aerosol inhaler (Dulera) 2 inh inhalation BID #3 ea 03/11/23 [Rx Last Taken Unknown] montelukast 10 mg tablet 10 mg PO QPM #90 tabs 03/11/23 [Rx Last Taken Unknown] nystatin 100,000 unit/mL oral suspension 5 ml mucous membrane TID #250 mL 03/11/23 [Rx Last Taken Unknown] tiotropium bromide 2.5 mcg/actuation mist for inhalation (Spiriva Respimat) 2 inh inhalation DAILY #3 ea 03/11/23 [Rx Last Taken Unknown] prednisone 20 mg tablet 40 mg (2 x 20 mg) PO DAILY #10 tabs 03/30/23 [Rx Last T aken Unknown] Allergy/AdvReac Type Severity Reaction Status Date / Time cefaclor [[facility] Allergy Itching Verified 05/03/23 08:09 clarithromycin Allergy Hives Verified 05/03/23 08:09 doxycycline Allergy Itching Verified 05/03/23 08:09 Penicillins Allergy Hives Verified 05/03/23 08:09 Sulfa (Sulfonamide Allergy Hives Verified 05/03/23 08:09 Antibiotics) biotin AdvReac Unknown Unknown Verified 05/03/23 08:09 zolpidem [From Ambien] AdvReac Unknown mental Verified 05/03/23 08:09 issues Family History Father Asthma Heart disease Grandmother Breast cancer Diabetes Mother Heart disease COPD (chronic obstructive pulmonary disease) Other Cancer Surgical History H/O heart artery stent History of esophagogastroduodenoscopy (EGD) (~07/2018) History of incisional hernia repair (~12/20/18) History of incisional hernia repair Hx of cholecystectomy Previous back surgery S/P carpal tunnel release S/P correction of deviated nasal septum S/P hysterectomy S/P knee surgery Status post amputation of right foot Status post thyroidectomy Social History Smoking Status: Former smoker Tobacco: How many years used: 25 second hand exposure: Yes alcohol intake: never substance use type: does not use caffeine: Yes what type of physical activity do you participate in: none frequency: does not exercise ROS Constitutional Constitutional: Reports anorexia, chills, fatigue, fever(s), malaise and weakness; Denies change in weight, night sweats or other Eyes Eyes: Denies blurry vision, change in eye color, change in vision, discharge from eye(s), double vision, erythema, eye pain, loss of vision or other ENT HEENT: Reports headache(s), nasal congestion and sinus pressure; Denies abnormal hearing, dysphagia, ear pain, epistaxis, hearing loss, nasal discharge, post nasal drip, sore throat or other Cardiovascular Cardiovascular: Denies chest pain, claudication, dyspnea on exertion, edema, lightheadedness, orthopnea, palpitations, paroxysmal nocturnal dyspnea, rapid heart rate, syncope or other Respiratory/Chest Respiratory/Chest: Reports cough, dyspnea, excessive phlegm production and productive cough; Denies hemoptysis, shortness of breath with exertion, wheezing or other Gastrointestinal Gastrointestinal: Reports abdominal pain, diarrhea, nausea and vomiting; Denies coffee ground emesis, constipation, dyspepsia, hematemesis, hematochezia, loose stools, melena or other Genitourinary Genitourinary: Reports urinary incontinence; Denies burning urination, difficulty urinating, dysuria, hematuria, nocturia, urinary frequency, urinary hesitancy, urinary urgency or other Musculoskeletal Musculoskeletal: Reports back pain, joint pain and joint stiffness; Denies arthralgias, joint swelling, myalgias, neck pain or other Neurologic Neurologic: Reports abnormal gait and headache(s); Denies abnormal speech, confusion, disequilibrium, dizziness, focal weakness, numbness, paresthesias, seizure-like activity, seizures, syncope, tingling, tremor(s) or other Psychiatric Psychiatric: Reports anxiety and depression; Denies homicidal ideation, suicidal ideation or other Endocrine Endocrinology: Denies change in body appearance, cold intolerance, excessive sweating, heat intolerance, polydipsia, polyuria or other Hematologic/Lymphatic Hematologic/Lymphatic: Denies anemia, easy bleeding, easy bruising, lymphadenopathy or other Physical Exam Const alert, no apparent distress and average body habitus Constitutional Narrative: Elderly female, chronically ill-appearing, less pale after blood transfusion, sitting up comfortably in bed, short appropriate responses to questions, no acute distress. General Appearance: cooperative and comfortable HEENT normocephalic, head/scalp atraumatic, hearing grossly normal bilaterally and nasal mucous membranes and turbinates normal Eyes PERRL, EOMs intact bilaterally and conjunctivae normal Neck full ROM, no lymphadenopathy and supple Lymph Lymphatic: no lymphadenopathy noted Chest inspection of chest normal Resp normal respiratory effort and no use of accessory muscles Resp Narrative: Mildly decreased breath sounds bilaterally, no wheezing or crackles noted. Cardio no murmurs and peripheral pulses 2+ throughout Cardio Narrative: Tachycardic, regular rhythm. GI normal to inspection, nondistended, normoactive bowel sounds, soft to palpation, non-tender and non-distended Back/Spine normal ROM Extremity normal to inspection, full ROM and no pedal edema Skin no rashes or lesions noted Neuro no focal motor deficits and no sensory deficits noted Speech: speech normal Psych mental status grossly normal Medical Records Data Medical Nutrition Assessment Dietitian: Malnutrition Criteria Met Start: 05/04/23 14:24 Freq: Status: Active Protocol: Document 05/04/23 14:28 [facility] (Rec: 05/04/23 14:28 [facility] Desktop) Nutrition Malnutrition Evidence of Malnutrition Exists Yes Malnutrition (severe): Acute Illness/Injury Evidenced By Suboptimal Energy Intake ( Severe),Weight Loss (Severe) Clinical Problem Acute Disease or Injury Related Malnutrition Etiology related to gi dysfunction and inability to consume adequate energy Signs/Symptoms as evidenced by 4.3% unintended wt loss and po intake <50% of est nutritional needs x < 1 wk Status Active Problem Recommendation Dietitian Recommendations/Changes Will liberalize diet to regular d/t signs and symptoms of malnutrition Will continue 4 oz ensure plus high protein 4x/day w/ medpass for increased nutrition if consumed. Lab / Micro Data 05/05/23 05:45 05/05/23 05:45 Labs: Laboratory Results - last 24 hr 05/04/23 08:30: Blood Type A NEGATIVE, Antibody Screen NEGATIVE, Crossmatch See Detail 05/04/23 22:26: Vancomycin Trough 19.0 H 05/05/23 00:27: WBC 22.4 H, RBC 3.52 L, Hgb 9.4 L, Hct 29.0 L, MCV 82.4, MCH 26.7 L, MCHC 32.4, RDW Std Deviation 50.0 H, RDW Coeff of Genaro 16.5 H, Plt Count 431, MPV 9.0 05/05/23 05:45: WBC 23.4 H, RBC 3.36 L, Hgb 9.2 L, Hct 27.7 L, MCV 82.4, MCH 27.4, MCHC 33.2, RDW Std Deviation 50.3 H, RDW Coeff of Genaro 16.8 H, Plt Count 463 H, MPV 9.3, Sodium 144, Potassium 3.6, Chloride 116 H, Carbon Dioxide 21.0, Anion Gap 7, BUN 14, Creatinine 0.69, Estim Creat Clear Calc 52.38, Est GFR (MDRD) Af Amer 108, Est GFR (MDRD) Non-Af 89, BUN/Creatinine Ratio 20.2 H, Glucose 134 H, Calcium 7.6 L, TSH 2.15 Micro: Microbiology 05/03/23 17:42 Sputum, Expectorated/Coughed Gram Stain - Final 05/03/23 17:42 Sputum, Expectorated/Coughed Respiratory Culture - Final Mixed normal respiratory gera. No Streptococcus pneumoniae, beta-hemolytic Streptococcus or Staphylococcus aureus isolated. 05/03/23 09:26 Urine, Catheterized Urine Culture - Preliminary Alpha hemolytic organism Alpha hemolytic organism#2 05/03/23 10:40 Blood Culture (Wb) - Anticubital Left Blood Culture - Preliminary Coag Negative Staph 05/05/23 00:05 Stool Stool Occult Blood (ELFEGO) - Final Occult Blood Positive Assessment & Plan Assessment/Plan (1) Acute on chronic anemia: (2) Influenza A: PLAN: Plan 67-year-old female with shortness of breath, nausea/vomiting, diarrhea, fevers and worsening weakness. She was identified as having acute influenza A and also had a significant drop in hemoglobin She has a history of acute on chronic anemia that appears to be normocytic in nature. However her hemoglobin 8.6 on admit, down trended to 5.9 on 05/04. She also had reactive thrombocytosis with a platelet count over 750,000. CT abdomen pelvis with IV contrast showed thickening of gastric antrum and pylorus of unclear etiology, endoscopy recommended, diverticulosis without evidence of acute diverticulitis, otherwise unremarkable. Iron studies 05/04 unremarkable. She was transfused 2 units of packed red blood cells. -She should undergo an upper endoscopy to evaluate upper GI tract. She was explained alternatives, risk, benefits including not withstanding bleeding, infection, sepsis, perforation, need for return to . She will have an ASA of 3. Charges/Coding Visit Charges Inpatient E&M: 08528 Init Hosp L3
--- NOTE | 2023-05-04 16:05 | PCM.PN.HOSP ---
Reason for Visit Reason for Visit: Diagnoses Sepsis, unspecified organism (05/03/23) Candidal stomatitis (05/03/23) Elevated white blood cell count, unspecified (05/03/23) Thrombocytosis, unspecified (05/03/23) Acidosis, unspecified (05/03/23) Influenza due to other identified influenza virus with other respiratory manifestations (05/03/23) Pneumonia, unspecified organism (05/03/23) Hypoxemia (05/03/23) Nausea with vomiting, unspecified (05/03/23) Other specified abnormal findings of blood chemistry (05/03/23) Subjective Subjective Patient seen at bedside this morning. Patient was sitting up in bed, making appropriate eye contact, answering questions with short appropriate responses. She reported feeling tired but otherwise denied any pain or discomfort. Denied any dark or bloody bowel movements overnight. She reported significant diarrhea prior to admission, but has not had any episodes of diarrhea since being admitted. Denies any other acute concerns at this time. Objective Data Objective Data Vital Signs: Vital Signs Temp Pulse Resp BP Pulse Ox O2 Del Method O2 Flow Rate 97.7 F L 105 H 20 H 104/70 96 Nasal Cannula 4 05/04/23 15:50 05/04/23 15:50 05/04/23 15:50 05/04/23 15:50 05/04/23 15:50 05/04/23 15:50 05/04/23 15:50 Oxygen Flow Rate (L/min) 4 Oxygen Delivery Method Nasal Cannula Weight: 60.781 kg Body Mass Index (BMI) 27.0 Intake & Output: Intake and Output for Last 24 Hours 05/02/23 05/03/23 05/04/23 23:59 23:59 23:59 Intake Total 5635 / 5635 300 / 300 Output Total 950 / 950 Balance 5635 / 5035 -650 / -650 Medical Nutrition Assessment Dietitian: Malnutrition Criteria Met Start: 05/04/23 14:24 Freq: Status: Active Protocol: Document 05/04/23 14:28 HARRISON (Rec: 05/04/23 14:28 HARRISON Desktop) Nutrition Malnutrition Evidence of Malnutrition Exists Yes Malnutrition (severe): Acute Illness/Injury Evidenced By Suboptimal Energy Intake ( Severe),Weight Loss (Severe) Clinical Problem Acute Disease or Injury Related Malnutrition Etiology related to gi dysfunction and inability to consume adequate energy Signs/Symptoms as evidenced by 4.3% unintended wt loss and po intake <50% of est nutritional needs x < 1 wk Status Active Problem Recommendation Dietitian Recommendations/Changes Will liberalize diet to regular d/t signs and symptoms of malnutrition Will continue 4 oz ensure plus high protein 4x/day w/ medpass for increased nutrition if consumed. Lab / Micro Data 05/04/23 05:47 05/04/23 05:47 Labs: Laboratory Results - last 24 hr 05/03/23 08:38: Diff Path Review Reviewed 05/03/23 16:50: MRSA (PCR) Negative 05/04/23 05:47: WBC 23.8 H, RBC 2.31 L, Hgb 5.9 L*, Hct 18.8 L, MCV 81.4, MCH 25.5 L, MCHC 31.4 L, RDW Std Deviation 55.8 H, RDW Coeff of Genaro 18.5 H, Plt Count , MPV 9.6, Immature Gran % (Auto) 3.000 H, Neut % (Auto) 91.0 H, Lymph % (Auto) 4.0 L, [place] % (Auto) 1.8, Eos % (Auto) 0.0, Baso % (Auto) 0.2, Absolute Neuts (auto) 21.7 H, Absolute Lymphs (auto) 0.96, Nucleated RBC % 0, Diff Path Review Reviewed, Platelet Estimate MKD INC, Hypochromasia 3+, Anisocytosis 2+, Sodium 143, Potassium 3.7, Chloride 117 H, Carbon Dioxide 19.0 L, Anion Gap 7, BUN 21 H, Creatinine 0.68, Estim Creat Clear Calc 52.38, Est GFR (MDRD) Af Amer 110, Est GFR (MDRD) Non-Af 91, BUN/Creatinine Ratio 30.7 H, Glucose 140 H, Calcium 7.3 L, Phosphorus 1.5 L, Magnesium 1.9, Iron 67, TIBC 281, Iron Saturation 23.8, Ferritin 220, Total Bilirubin 0.30, AST 17, ALT 10 L, Alkaline Phosphatase 62, Total Protein 5.7 L, Albumin 2.0 L, Globulin 3.7, Albumin/Globulin Ratio 0.5 L 05/04/23 08:30: Blood Type A NEGATIVE, Antibody Screen NEGATIVE, Crossmatch See Detail Micro: Microbiology 05/03/23 17:42 Sputum, Expectorated/Coughed Gram Stain - Final 05/03/23 10:40 Blood Culture (Wb) - Anticubital Left Blood Culture - Preliminary 05/03/23 15:59 Mucosa - Nose Respiratory Panel (PCR) - Final 05/03/23 09:26 Urine, Random Legionella Antigen - Final 05/03/23 09:26 Urine, Random Streptococcus pneumoniae Antigen (M - Final 05/03/23 08:38 Mucosa - Nose SARS-CoV-2, Influenza & RSV (PCR) - Final Influenzae A Radiography Diagnostic Testing: Radiology Impression Abdomen/Pelvis CT 05/04/23 08:18 IMPRESSION: 1. Thickening of the gastric antrum and pylorus difficult to accurately evaluate on this exam. Correlation with endoscopy is recommended. 2. Diverticulosis without evidence of acute diverticulitis. 3. Otherwise no focal acute inflammatory process. Electronically Signed: Agustín Norman MD at 9:57 EST , Physical Exam Const alert, no apparent distress and average body habitus Constitutional Narrative: Elderly female, chronically ill-appearing, appears pale but sitting up comfortably in bed, making appropriate eye contact and answers questions with short appropriate answers, no acute distress. General Appearance: cooperative and comfortable HEENT normocephalic, head/scalp atraumatic, hearing grossly normal bilaterally and nasal mucous membranes and turbinates normal Eyes PERRL, EOMs intact bilaterally and conjunctivae normal Neck full ROM, no lymphadenopathy and supple Lymph Lymphatic: no lymphadenopathy noted Chest inspection of chest normal Resp normal respiratory effort and no use of accessory muscles Resp Narrative: Mildly decreased breath sounds bilaterally, no wheezing or crackles noted. Cardio no murmurs and peripheral pulses 2+ throughout Cardio Narrative: Tachycardic, regular rhythm. GI normal to inspection, nondistended, normoactive bowel sounds, soft to palpation, non-tender and non-distended Back/Spine normal ROM Extremity normal to inspection, full ROM and no pedal edema Skin no rashes or lesions noted Neuro no focal motor deficits and no sensory deficits noted Speech: speech normal Psych mental status grossly normal Mood & Affect: anxious Assessment & Plan Assessment/Plan (1) Acute on chronic anemia: (2) Influenza A: PLAN: Plan Patient is a 67-year-old female who presented to [facility] ED on 05/03/2023 with several concerns including shortness of breath, nausea/vomiting, diarrhea, fevers and worsening weakness. 1. Acute on chronic normocytic anemia Hemoglobin 8.6 on admit, down trended to 5.9 on 05/04. No dark or bright red blood in stools noted. Likely some component of hemodilution due to fluid resuscitation on admit as noted below. However, also with concern for new onset GI bleed. CT abdomen pelvis with IV contrast showed thickening of gastric antrum and pylorus of unclear etiology, endoscopy recommended, diverticulosis without evidence of acute diverticulitis, otherwise unremarkable. Iron studies 05/04 unremarkable. ? S/p 2 units packed red blood cells on 05/04, repeat hemoglobin pending. Gastroenterology consulted. N.p.o. at midnight for likely EGD. Will start IV PPI twice daily. 2. Sepsis secondary to influenza A with concern for superimposed bacterial pneumonia Met sepsis criteria on admit with tachycardia, elevated respiratory rate, markedly elevated WBC count, lactic acidosis, new hypoxia, suspected source. Chest x-ray on admit with no acute cardiopulmonary process. Influenza A positive. Given fluid bolus at 30 cc/kg on admit with improvement in blood pressure. Urine antigens negative. Respiratory PCR panel negative. ? Continue vancomycin and cefepime for now. Blood cultures, sputum culture, urine culture pending. Continue IV steroids for now, likely de-escalate to p.o. steroids tomorrow. Pulmonary toilet, incentive spirometry. Supportive care with as needed medications. Holding home Plaquenil. 3. Lactic acidosis, resolved ? Suspect related to above and underlying hypoxia, improved with fluid boluses. 4. Leukocytosis/thrombocytosis ? Suspect reactive from infection. Patient has also been on steroids. Monitor daily CBC. 5. DANYEL, resolved ? Creatinine 1.35 on admit, improved to 0.68 (baseline) with IV fluids. 6. Oral thrush ? Nystatin suspension swish for 7 days. 7. Nausea/vomiting/diarrhea, improving ? Unclear etiology. Has had no episodes of vomiting or diarrhea since admission. CT abdomen pelvis as above. Enteric panel and C. difficile ordered, unable to be collected. Continue IV PPI twice daily as above for now. 8. Debility ? Lives at home with but appears to be quite debilitated at baseline. PT/OT/case management consulted. Chronic medical conditions: ? History of RAUL: Continue home CPAP. ? Hypothyroidism: Continue home Synthroid and liothyronine. ? Chronic hypoxic respiratory failure secondary to COPD: Follows with pulmonology, sees Dr. Page. Supposed to be on 2 L [id number], however she is only wearing this as needed. Weaning supplemental oxygen as able as noted above. Recommend outpatient follow-up after discharge. ? CAD/hypertension/hyperlipidemia: Continue home statin, Plavix, metoprolol. Holding home Lasix for now. ? Anxiety/depression/fibromyalgia: Continue home Topamax, Cymbalta, BuSpar, lorazepam, hydroxyzine. DVT prophylaxis: SCDs CODE STATUS: DNR CCA, okay to intubate Expected disposition: TBD Total clinical time spent by myself addressing the patient's medical issues, reviewing all the data, and collaborating with patient's care team: 35 minutes. Charges/Coding Visit Charges Inpatient E&M: 45060 Subs Hosp L2
[2023-05-04] MEDS: Albuterol 2.5 MG/3 ML VIAL.NEB. INHALATION (16:08)
[2023-05-04] MEDS: Vancomycin Trough/Random Due 1 LAB MC (23:38)
[2023-05-05] VITALS (13 sets, daily range): BP systolic 94–133; BP diastolic 44–60; PULSE 54–89; RESP 15–24; TEMP 36.5–37.1; O2SAT 92–98; BMI 27.0
--- NOTE | 2023-05-05 00:06 | PCM.RX.CS ---
Consult Antibiotic Management Pharmacy has been consulted to manage selected antibiotic: Vancomycin Type of Intervention Type of Consult: Follow-up Suspected Infection Suspected Infection: Pneumonia Labs Labs: Sodium 143 mmol/L (136-145) 05/04/23 05:47 Potassium 3.7 mmol/L (3.5-5.1) 05/04/23 05:47 Chloride 117 mmol/L (98-107) H 05/04/23 05:47 Carbon Dioxide 19.0 mmol/L (21.0-32.0) L 05/04/23 05:47 Anion Gap 7 (5-15) 05/04/23 05:47 BUN 21 mg/dL (7-18) H 05/04/23 05:47 Creatinine 0.68 mg/dL (0.55-1.02) 05/04/23 05:47 Est GFR (MDRD) Af Amer 110 mL/min (>60) 05/04/23 05:47 Est GFR (MDRD) Non-Af 91 mL/min (>60) 05/04/23 05:47 BUN/Creatinine Ratio 30.7 RATIO (10-20) H 05/04/23 05:47 Glucose 140 mg/dL (74-106) H 05/04/23 05:47 Vancomycin Trough 19.0 ug/mL (5.0-15.0) H 05/04/23 22:26 Microbiology Microbiology: Microbiology 05/03/23 17:42 Sputum, Expectorated/Coughed Gram Stain - Final 05/03/23 10:40 Blood Culture (Wb) - Anticubital Left Blood Culture - Preliminary 05/03/23 15:59 Mucosa - Nose Respiratory Panel (PCR) - Final 05/03/23 09:26 Urine, Random Legionella Antigen - Final 05/03/23 09:26 Urine, Random Streptococcus pneumoniae Antigen (M - Final 05/03/23 08:38 Mucosa - Nose SARS-CoV-2, Influenza & RSV (PCR) - Final Influenzae A Dosing Weight Weight used for dosin.8 kg Estimated Creatinine Clearance Estimated Creatinine Clearance: 52 Goal Trough Goal Trough: 15-20 mcg/mL Pharmacy Plan for Drug Dosing Pharmacy Plan for Drug Dosing: Vancomycin trough draw was drawn, due to a delayed previous dose, just 9 hours post-dose. The resultant level was 19.0, on the higher side of the target range of 15-20, so will continue dosing at 500mg q12h. Another trough level will be drawn in two days. Pharmacy Service will continue to monitor and adjust dosing as required. Follow-Up Labs Follow-Up Labs: Trough: Vancomycin Date/Time Labs Ordered Labs to be done on [date and time ordered]: 05/06/23 @9375
[2023-05-05 00:37] LABS: Hemoglobin 9.4 g/dL (12.0-15.0); Mean Corp Hgb Conc 32.4 g/dL (32-36); Mean Corpuscular Hgb 26.7 pg (27.0-32.0); Mean Corpuscular Volume 82.4 fL (81-99); Platelet Count 431 K/mm3 (150-450); RBC Distribution Width CV 16.5 % (11.6-14.6); Red Blood Count 3.52 M/mm3 (4.2-5.4); White Blood Count 22.4 K/mm3 (4.4-11.0)
[2023-05-05 06:11] LABS: Hematocrit 27.7 % (37-47); Hemoglobin 9.2 g/dL (12.0-15.0); Mean Corp Hgb Conc 33.2 g/dL (32-36); Mean Corpuscular Hgb 27.4 pg (27.0-32.0); Mean Corpuscular Volume 82.4 fL (81-99); Mean Platelet Vol. 9.3 fl (6.2-12.0); Platelet Count 463 K/mm3 (150-450); RBC Distribution Width CV 16.8 % (11.6-14.6); RBC Distribution Width SD 50.3 fl (35.1-43.9); Red Blood Count 3.36 M/mm3 (4.2-5.4); White Blood Count 23.4 K/mm3 (4.4-11.0)
[2023-05-05 06:48] LABS: Anion Gap 7 (5-15); BUN 14 mg/dL (7-18); BUN/Creat Ratio 20.2 RATIO (10-20); Calcium,Total 7.6 mg/dL (8.5-10.1); Chloride 116 mmol/L (98-107); Creatinine, Serum 0.69 mg/dL (0.55-1.02); EST Glomerular Filtration Rate 89 mL/min (>60); Est Glom Filt Rate - Afr Amer 108 mL/min (>60); Estimated Creatinine Clearance 52.38 ml/min; Glucose 134 mg/dL (74-106); Potassium 3.6 mmol/L (3.5-5.1); Sodium Level 144 mmol/L (136-145); Thyroid Stim Hormone (TSH) 2.15 uIU/mL (0.358-3.74)
[2023-05-05] MEDS: Ipratropium/Albuterol Sulfate 3 ML AMPUL.NEB INHALATION ×2 (08:05→19:26)
[2023-05-05] MEDS: predniSONE 20 MG Tablet 40 MG PO (10:14)
[2023-05-05] MEDS: Cefepime HCl 2 GM in 0.9% Normal Saline (100mL MB+) 100 ML IV (10:14)
[2023-05-05] MEDS: guaiFENesin 1,200 MG Tablet 1200 MG PO ×2 (10:15→21:26)
[2023-05-05] MEDS: Pantoprazole Sodium 40 MG in 0.9% Normal Saline (100mL MB+) 100 ML 330 MG IV ×2 (11:07→21:26)
[2023-05-05] MEDS: Lactated Ringers 1,000 ML 15 ML IV (14:55)
--- NOTE | 2023-05-05 15:39 | PN.HOSP_ITS ---
Reason for Visit Reason for Visit: Diagnoses Sepsis, unspecified organism (05/03/23) Candidal stomatitis (05/03/23) Anemia, unspecified (05/03/23) Elevated white blood cell count, unspecified (05/03/23) Thrombocytosis, unspecified (05/03/23) Acidosis, unspecified (05/03/23) Influenza due to other identified influenza virus with other respiratory manifestations (05/03/23) Pneumonia, unspecified organism (05/03/23) Hypoxemia (05/03/23) Nausea with vomiting, unspecified (05/03/23) Other specified abnormal findings of blood chemistry (05/03/23) Subjective Subjective Patient seen at bedside this morning. Sitting up in bed, no acute distress. Patient appeared less pale and more awake this morning. Her main concern was that she felt cold, stated the blankets were thin and not enough to keep her warm. She otherwise denied any acute pain or discomfort. Reported a mild dry cough that was improving. Denied any diarrhea overnight. Denied any episodes of nausea or vomiting. No other acute concerns at this time. Objective Data Objective Data Vital Signs: Vital Signs Temp Pulse Resp BP Pulse Ox O2 Del Method O2 Flow Rate 98.4 F 63 18 133/60 H 93 Nasal Cannula 4 05/05/23 13:59 05/05/23 13:59 05/05/23 13:59 05/05/23 13:59 05/05/23 13:59 05/05/23 13:59 05/05/23 13:59 FiO2 4 05/04/23 23:24 Oxygen Flow Rate (L/min) 4 Oxygen Delivery Method Nasal Cannula Weight: 60.781 kg Body Mass Index (BMI) 27.0 Intake & Output: Intake and Output for Last 24 Hours 05/03/23 05/04/23 05/05/23 23:59 23:59 23:59 Intake Total 5635 / 5635 1240 / 1240 310 / 310 Output Total 1150 / 1150 1200 / 1200 Balance 5635 / 5035 90 / 90 -890 / -890 Medical Nutrition Assessment Dietitian: Malnutrition Criteria Met Start: 05/04/23 14:24 Freq: Status: Active Protocol: Document 05/04/23 14:28 SLA (Rec: 05/04/23 14:28 SLA Desktop) Nutrition Malnutrition Evidence of Malnutrition Exists Yes Malnutrition (severe): Acute Illness/Injury Evidenced By Suboptimal Energy Intake ( Severe),Weight Loss (Severe) Clinical Problem Acute Disease or Injury Related Malnutrition Etiology related to gi dysfunction and inability to consume adequate energy Signs/Symptoms as evidenced by 4.3% unintended wt loss and po intake <50% of est nutritional needs x < 1 wk Status Active Problem Recommendation Dietitian Recommendations/Changes Will liberalize diet to regular d/t signs and symptoms of malnutrition Will continue 4 oz ensure plus high protein 4x/day w/ medpass for increased nutrition if consumed. Lab / Micro Data 05/05/23 05:45 05/05/23 05:45 Labs: Laboratory Results - last 24 hr 05/04/23 08:30: Blood Type A NEGATIVE, Antibody Screen NEGATIVE, Crossmatch See Detail 05/04/23 22:26: Vancomycin Trough 19.0 H 05/05/23 00:27: WBC 22.4 H, RBC 3.52 L, Hgb 9.4 L, Hct 29.0 L, MCV 82.4, MCH 26.7 L, MCHC 32.4, RDW Std Deviation 50.0 H, RDW Coeff of Genaro 16.5 H, Plt Count 431, MPV 9.0 05/05/23 05:45: WBC 23.4 H, RBC 3.36 L, Hgb 9.2 L, Hct 27.7 L, MCV 82.4, MCH 27.4, MCHC 33.2, RDW Std Deviation 50.3 H, RDW Coeff of Genaro 16.8 H, Plt Count 463 H, MPV 9.3, Sodium 144, Potassium 3.6, Chloride 116 H, Carbon Dioxide 21.0, Anion Gap 7, BUN 14, Creatinine 0.69, Estim Creat Clear Calc 52.38, Est GFR (MDRD) Af Amer 108, Est GFR (MDRD) Non-Af 89, BUN/Creatinine Ratio 20.2 H, Glucose 134 H, Calcium 7.6 L, TSH 2.15 Micro: Microbiology 05/03/23 17:42 Sputum, Expectorated/Coughed Gram Stain - Final 05/03/23 17:42 Sputum, Expectorated/Coughed Respiratory Culture - Final Mixed normal respiratory gera. No Streptococcus pneumoniae, beta-hemolytic Streptococcus or Staphylococcus aureus isolated. 05/03/23 09:26 Urine, Catheterized Urine Culture - Preliminary Alpha hemolytic organism Alpha hemolytic organism#2 05/03/23 10:40 Blood Culture (Wb) - Anticubital Left Blood Culture - Preliminary Coag Negative Staph 05/05/23 00:05 Stool Stool Occult Blood (ELFEGO) - Final Occult Blood Positive 05/03/23 15:59 Mucosa - Nose Respiratory Panel (PCR) - Final 05/03/23 09:26 Urine, Random Legionella Antigen - Final 05/03/23 09:26 Urine, Random Streptococcus pneumoniae Antigen (M - Final 05/03/23 08:38 Mucosa - Nose SARS-CoV-2, Influenza & RSV (PCR) - Final Influenzae A Physical Exam Const alert, no apparent distress and average body habitus Constitutional Narrative: Elderly female, chronically ill-appearing, less pale after blood transfusion, sitting up comfortably in bed, short appropriate responses to questions, no acute distress. General Appearance: cooperative and comfortable HEENT normocephalic, head/scalp atraumatic, hearing grossly normal bilaterally and nasal mucous membranes and turbinates normal Eyes PERRL, EOMs intact bilaterally and conjunctivae normal Neck full ROM, no lymphadenopathy and supple Lymph Lymphatic: no lymphadenopathy noted Chest inspection of chest normal Resp normal respiratory effort and no use of accessory muscles Resp Narrative: Mildly decreased breath sounds bilaterally, no wheezing or crackles noted. Cardio no murmurs and peripheral pulses 2+ throughout Cardio Narrative: Tachycardic, regular rhythm. GI normal to inspection, nondistended, normoactive bowel sounds, soft to palpation, non-tender and non-distended Back/Spine normal ROM Extremity normal to inspection, full ROM and no pedal edema Skin no rashes or lesions noted Neuro no focal motor deficits and no sensory deficits noted Speech: speech normal Psych mental status grossly normal Assessment & Plan Assessment/Plan (1) Acute on chronic anemia: (2) Influenza A: PLAN: Plan Patient is a 67-year-old female who presented to [facility] ED on 05/03/2023 with several concerns including shortness of breath, nausea/vomiting, diarrhea, fevers and worsening weakness. 1. Acute on chronic normocytic anemia Hemoglobin 8.6 on admit, down trended to 5.9 on 05/04. No dark or bright red blood in stools noted. Likely some component of hemodilution due to fluid resuscitation on admit as noted below. However, also with concern for new onset GI bleed. CT abdomen pelvis with IV contrast showed thickening of gastric antrum and pylorus of unclear etiology, endoscopy recommended, diverticulosis without evidence of acute diverticulitis, otherwise unremarkable. Iron studies 05/04 unremarkable. ? S/p 2 units packed red blood cells on 05/04, repeat hemoglobin 9.2. Gastroenterology consulted, planning for EGD on 05/05. Continue IV PPI twice daily for now, will likely de-escalate to p.o. PPI twice daily tomorrow. Monitor daily CBC. 2. Sepsis secondary to influenza A with concern for superimposed bacterial pneumonia, acute hypoxia on chronic hypoxic respiratory failure Met sepsis criteria on admit with tachycardia, elevated respiratory rate, markedly elevated WBC count, lactic acidosis, new hypoxia, suspected source. Chest x-ray on admit with no acute cardiopulmonary process. Influenza A positive. Given fluid bolus at 30 cc/kg on admit with improvement in blood pressure. Urine antigens negative. Respiratory PCR panel negative. Blood cultures, sputum culture, urine culture negative. ? Discontinue vancomycin and cefepime on 05/05. De-escalated to p.o. steroids on 05/05 with plan for 5-day course. Continue pulmonary toilet, incentive spirometry, as needed medications for supportive care. Holding home Plaquenil. Required up to 6 L nasal cannula on admission, now on 4 L nasal cannula at rest on 05/05 (on intermittent 2 L at baseline). Will likely need O2 evaluation prior to discharge. 3. Lactic acidosis, resolved ? Suspect related to above and underlying hypoxia, improved with fluid boluses. 4. Leukocytosis/thrombocytosis, improving ? Suspect reactive from infection. Patient has also been on steroids. Monitor daily CBC. 5. DANYEL, resolved ? Creatinine 1.35 on admit, improved to 0.68 (baseline) with IV fluids. 6. Oral thrush ? Nystatin suspension swish for 7 days. 7. Nausea/vomiting/diarrhea, resolved ? Unclear etiology. Has had no episodes of vomiting or diarrhea since admission. CT abdomen pelvis as above. Enteric panel and C. difficile ordered, unable to be collected. Continue IV PPI twice daily as above for now. 8. Debility ? Lives at home with but appears to be quite debilitated at baseline. PT/OT/case management following. has appropriate set up for her at home, denies any needs on discharge, planning for home on discharge. Chronic medical conditions: ? History of RAUL: Continue home CPAP. ? Hypothyroidism: Continue home Synthroid and liothyronine. ? Chronic hypoxic respiratory failure secondary to COPD: Follows with pulmonology, sees Dr. Page. Supposed to be on 2 L [id number], however s he is only wearing this as needed. Weaning supplemental oxygen as able as noted above. Recommend outpatient follow-up after discharge. ? CAD/hypertension/hyperlipidemia: Continue home statin, Plavix, metoprolol. Holding home Lasix for now. ? Anxiety/depression/fibromyalgia: Continue home Topamax, Cymbalta, BuSpar, lorazepam, hydroxyzine. DVT prophylaxis: SCDs CODE STATUS: DNR CCA, okay to intubate Expected disposition: TBD Total clinical time spent by myself addressing the patient's medical issues, reviewing all the data, and collaborating with patient's care team: 35 minutes. Charges/Coding Visit Charges Inpatient E&M: 43799 Subs Hosp L2
--- NOTE | 2023-05-05 15:45 | EGD_PTH ---
PATIENT: TAJ BLANK LOC: MS3 U#:[id number] AGE/SX: 67/F ROOM: MS306 RE05/03/[address]: Dr. David Blackwell DO : 1955 BED: 1 DIS: 05/06/2023 SPEC #: [id number] RECD: 05/06/23 07:24 STATUS: MADHU REShmuel #: [id number] DAYDAY: 05/05/23 15:[address]: Sree Diggs DEPT: SURGICAL PATHOLOGY RECD BY: Estelle Ngo ENTERED: 05/06/23 07:24 SP TYPE: EGD BIOPSY OTHR DR: Dr. David Blackwell, DO Dr. Cherelle Almendarez, DO Dr. Chrystal Michel, DO Dr. Sree Diggs DO Tissues: Duodenum, NOS Procedures: Surgery Specimen Level IV Comments: @ Ordering doctor for SUIV edited from to @ by PREET at 05/06/23 1516 @ Submitting doctor edited from to @ by PREET at 05/06/23 1516 HEADER OPERATION: EGD, biopsy PRE-OP DIAGNOSIS: GI bleed, sepsis, nausea, vomiting TISSUE SUBMITTED: Duodenal ulcer biopsy MICROSCOPIC DIAGNOSIS Duodenal ulcer, biopsy: Focal ulceration with associated acute inflammation and early granulation. AM:suellen 05/07/2023 MICROSCOPIC DESCRIPTION Slides are reviewed. GROSS DESCRIPTION Received in fixative is one container labeled with the patient's name and designated duodenal ulcer biopsy. The specimen consists of two irregular fragments of light benson soft tissue that in aggregate measure 0.8 x 0.4 x 0.1 cm. The specimen is totally submitted in one cassette. / SJ:suellen 05/06/2023 TC:2 [facility]: [id number]
--- NOTE | 2023-05-05 16:01 | OP.EGD_ITS ---
Patient Name: Codi Owen Procedure Date: 05/05/2023 3:26 PM Date of : 1955 Age: 67 Procedure: Upper GI endoscopy Indications: Iron deficiency anemia, Melena Providers: Sree Diggs DO Medicines: Monitored Anesthesia Care Patient Profile: This is a 67 year old female. Refer to note in patient chart for documentation of history and physical. Patient has symptoms of acute epigastric abdominal pain. Complications: No immediate complications. Procedure: Pre-Anesthesia Assessment: - Prior to the procedure, a History and Physical was performed, and patient medications and allergies were reviewed. The patient is competent. The risks and benefits of the procedure and the sedation options and risks were discussed with the patient. All questions were answered and informed consent was obtained. Patient identification and proposed procedure were verified by the physician in the pre-procedure area. Mental Status Examination: alert and oriented. Airway Examination: normal oropharyngeal airway and neck mobility. Respiratory Examination: clear to auscultation. CV Examination: normal. Prophylactic Antibiotics: The patient does not require prophylactic antibiotics. Prior Anticoagulants: The patient has taken no anticoagulant or antiplatelet agents. ASA Grade Assessment: III - A patient with severe systemic disease. After reviewing the risks and benefits, the patient was deemed in satisfactory condition to undergo the procedure. The anesthesia plan was to use monitored anesthesia care (MAC). Immediately prior to administration of medications, the patient was re-assessed for adequacy to receive sedatives. The heart rate, respiratory rate, oxygen saturations, blood pressure, adequacy of pulmonary ventilation, and response to care were monitored throughout the procedure. The physical status of the patient was re-assessed after the procedure. After obtaining informed consent, the endoscope was passed under direct vision. Throughout the procedure, the patient's blood pressure, pulse, and oxygen saturations were monitored continuously. The Endoscope was introduced through the mouth, and advanced to the second part of duodenum. The upper GI endoscopy was accomplished without difficulty. The patient tolerated the procedure well. Scope In: 3:44:31 PM Scope Out: 3:47:32 PM Total Procedure Duration Time 0 hours 3 minutes 1 second Findings: The examined esophagus was normal. Patchy mildly erythematous mucosa without bleeding was found in the gastric body. One oozing cratered duodenal ulcer with a visible vessel was found in the duodenal bulb. The lesion was 10 mm in largest dimension. Area was successfully injected with 10 mL of a 0.1 mg/mL solution of epinephrine for drug delivery. Coagulation for hemostasis using heater probe was successful. Estimated blood loss was minimal. One non-bleeding linear duodenal ulcer with no stigmata of bleeding was found in the first portion of the duodenum. The lesion was 5 mm in largest dimension. Biopsies were taken with a cold forceps for histology. Verification of patient identification for the specimen was done. Estimated blood loss was minimal. Impression: - Normal esophagus. - Erythematous mucosa in the gastric body. - Oozing duodenal ulcer with a visible vessel. Injected. Treated with a heater probe. - Non-bleeding duodenal ulcer with no stigmata of bleeding. Biopsied. Recommendation: - Return patient to [facility] for [facility] care. - Full liquid diet today. - Continue present medications. - Await pathology results. Procedure Code(s): --- Professional --- 36831, 59, Esophagogastroduodenoscopy, flexible, transoral; with control of bleeding, any method 35193, Esophagogastroduodenoscopy, flexible, transoral; with biopsy, single or multiple 22195, 59,51, Esophagogastroduodenoscopy, flexible, transoral; with directed submucosal injection(s), any substance CPT copyright 202 [employer]. All rights reserved. The codes documented in this report are preliminary and upon window sash installer review may be revised to meet current compliance requirements. Sree Diggs DO 05/05/2023 4:01:00 PM This report has been signed electronically. Number of Addenda: 0 Note Initiated On: 05/05/2023 3:26 PM
--- NOTE | 2023-05-05 16:01 | OP.CCLET_ITS ---
05/05/2023 Chrystal Michel [address] [facility] [place] [address] [place] [address] Re : Upper GI endoscopy procedure for oCdi Serranokb Dear Dr. Michel This procedure was performed on Friday, May 05, 2023. My impressions and recommendations are as follows: Impressions : - Normal esophagus. - Erythematous mucosa in the gastric body. - Oozing duodenal ulcer with a visible vessel. Injected. Treated with a heater probe. - Non-bleeding duodenal ulcer with no stigmata of bleeding. Biopsied. Recommendations : - Return patient to [facility] for ongoing care. - Full liquid diet today. - Continue present medications. - Await pathology results. My findings are described in the full procedure note, which is enclosed. If I can be of further assistance, please feel free to contact me at . Sincerely, Sree Diggs, 05/05/2023 4:01:00 PM This report has been signed electronically.
[2023-05-05] MEDS: NYSTATIN 500,000 UNIT/5 ML UDC 500000 UNIT PO (21:26)
[2023-05-06] VITALS (7 sets, daily range): BP systolic 120–129; BP diastolic 54–63; PULSE 62–77; RESP 18–23; TEMP 36.6–37.2; O2SAT 87–96
[2023-05-06] MEDS: Ipratropium/Albuterol Sulfate 3 ML AMPUL.NEB INHALATION ×2 (07:20→11:28)
[2023-05-06 07:35] LABS: Hematocrit 27.6 % (37-47); Hemoglobin 9.1 g/dL (12.0-15.0); Mean Corpuscular Hgb 27.2 pg (27.0-32.0); Mean Corpuscular Volume 82.6 fL (81-99); Mean Platelet Vol. 9.5 fl (6.2-12.0); Platelet Count 467 K/mm3 (150-450); RBC Distribution Width CV 17.5 % (11.6-14.6); RBC Distribution Width SD 52.2 fl (35.1-43.9); Red Blood Count 3.34 M/mm3 (4.2-5.4); White Blood Count 16.7 K/mm3 (4.4-11.0)
[2023-05-06] MEDS: Pantoprazole Sodium 40 MG Tablet PO (10:01)
[2023-05-06] MEDS: guaiFENesin 1,200 MG Tablet 1200 MG PO (10:01)
[2023-05-06] MEDS: predniSONE 20 MG Tablet 40 MG PO (10:01)
[2023-05-06] MEDS: NYSTATIN 500,000 UNIT/5 ML UDC 500000 UNIT PO (10:02)
--- NOTE | 2023-05-06 12:01 | DCINST_ITS ---
Discharge Instructions Diet Discharge Diet: No restrictions Activity Discharge Activity: No Restrictions Weight Bearing Status: Full weight bearing Follow Up Care Please Follow Up With: Chrystal Michel DO When: As needed Test Results: Test results from this visit will be discussed in further detail at your follow- up appointment, if applicable. Pending Tests Upon Discharge: None Discharge Plan Admission Admit Date/Time: 05/03/23 13:03 Primary Reason for Your Visit: Influenza A infection, anemia Attending Provider: David Blackwell Primary Care Provider: Chrystal Michel Consulting Providers: Cherelle Almendarez; Friend,Sree Instructions Additional Instructions / Restrictions: Please take medications as noted below. Follow-up with your primary care doctor as needed. Discharge Orders/Prescriptions Prescriptions: New prednisone 20 mg Tablet 40 mg PO BREAKFAST 2 Days Qty: 4 0RF pantoprazole 40 mg Tablet,Delayed Release (Dr/Ec) 40 mg PO BID 30 Days Qty: 60 0RF Continued lorazepam [Ativan] 1 mg tablet 1 mg PO BID-TID PRN (Reason: Anxiety) hydroxyzine HCl 50 mg tablet 50 mg PO QHS buspirone 7.5 mg tablet 7.5 mg PO BID albuterol sulfate 90 mcg/actuation HFA aerosol inhaler 1 - 2 puff INHALATION Q6H PRN PRN (Reason: COPD) Qty: 2 6RF ipratropium-albuterol 0.5 mg-3 mg(2.5 mg base)/3 mL solution for nebulization 3 ml INHALATION Q4H PRN (Reason: SOB) Qty: 180 3RF Dulera 200-5 mcg/actuation HFA aerosol inhaler 2 inh inhalation BID Qty: 3 3RF montelukast 10 mg tablet 10 mg PO QPM Qty: 90 3RF Spiriva Respimat 2.5 mcg/actuation mist 2 inh INHALATION DAILY Qty: 3 3RF nystatin 100,000 unit/mL suspension 5 ml mucous membrane TID Qty: 250 1RF Rx Instructions: swish and swallow 5 cc three times per day for 10 days guaifenesin 1,200 mg tablet extended release 12hr 1,200 mg PO Q12H Qty: 60 6RF clopidogrel 75 MG tablet 75 mg PO DAILY Patient Comments: STOPPED FRO SURGERY, DR INSTRUCTIONS atorvastatin 80 MG tablet 80 mg PO QHS metoprolol tartrate 25 MG tablet 12.5 mg PO BID duloxetine 60 MG capsule 60 mg PO BID furosemide 40 mg Tablet 60 mg PO DAILY topiramate 25 mg tablet 50 mg PO QHS liothyronine 5 mcg tablet 25 mcg PO DAILY triamcinolone acetonide 0.1 % cream 1 applic TOPICAL BID levothyroxine 50 mcg tablet 50 mcg PO DAILY hydroxychloroquine 200 mg tablet 200 mg PO BID Patient Comments: TAKE 1 TABLET BY MOUTH TWICE DAILY pregabalin 50 mg capsule 50 mg PO DAILY Discontinued diclofenac sodium 75 mg tablet,delayed release (DR/EC) 75 mg PO BID prednisone 20 mg tablet 40 mg PO DAILY Qty: 10 0RF Referrals / Follow Up: Chrystal Michel DO [Primary Care Provider] - Disposition Disposition (needs filled in before D/C Order can be placed): Home, Self Care
--- NOTE | 2023-05-06 12:10 | DS.PCM_ITS ---
Providers Date of Admission: 05/03/23 Date of Discharge: 05/06/23 Primary Care Physician: Dr. Chrystal Michel, Consultations 05/04/23 13:31 Consult: Gastroenterology Routine Consulting Provider: DontaeSree Reason for Consult: concern for upper GI bleed, abnormal CTAP findings EMERGENT Consult: No MD Notified: Yes Date Notified: 05/04/23 Time Notified: 14:57 Method of Notification: via text Reason For Visit: HYPOXIA 2/2 INFLUENZA A Diagnosis Discharge Diagnosis (1) Acute on chronic anemia: Status: Chronic Code(s): D64.9 - Anemia, unspecified (2) Influenza A: Status: Acute Code(s): J10.1 - Influenza due to other identified influenza virus with other respiratory manifestations Plan Patient is a 67-year-old female who presented to [facility] ED on 05/03/2023 with several concerns including shortness of breath, nausea/vomiting, diarrhea, fevers and worsening weakness. 1. Acute on chronic normocytic anemia Hemoglobin 8.6 on admit, down trended to 5.9 on 05/04. No dark or bright red blood in stools noted. Likely some component of hemodilution due to fluid resuscitation on admit as noted below. However, also with concern for new onset GI bleed. CT abdomen pelvis with IV contrast showed thickening of gastric antrum and pylorus of unclear etiology, endoscopy recommended, diverticulosis without evidence of acute diverticulitis, otherwise unremarkable. Iron studies 05/04 unremarkable. ? S/p 2 units packed red blood cells on 05/04, repeat hemoglobin 9.2. Gastroenterology consulted, planning for EGD on 05/05. Continue IV PPI twice daily for now, will likely de-escalate to p.o. PPI twice daily tomorrow. Monitor daily CBC. 2. Sepsis secondary to influenza A with concern for superimposed bacterial pneumonia, acute hypoxia on chronic hypoxic respiratory failure Met sepsis criteria on admit with tachycardia, elevated respiratory rate, m arkedly elevated WBC count, lactic acidosis, new hypoxia, suspected source. Chest x-ray on admit with no acute cardiopulmonary process. Influenza A positive. Given fluid bolus at 30 cc/kg on admit with improvement in blood pressure. Urine antigens negative. Respiratory PCR panel negative. Blood cultures, sputum culture, urine culture negative. ? Discontinue vancomycin and cefepime on 05/05. De-escalated to p.o. steroids on 05/05 with plan for 5-day course. Continue pulmonary toilet, incentive spirometry, as needed medications for supportive care. Holding home Plaquenil. Required up to 6 L nasal cannula on admission, now on 4 L nasal cannula at rest on 05/05 (on intermittent 2 L at baseline). Will likely need O2 evaluation prior to discharge. 3. Lactic acidosis, resolved ? Suspect related to above and underlying hypoxia, improved with fluid boluses. 4. Leukocytosis/thrombocytosis, improving ? Suspect reactive from infection. Patient has also been on steroids. Monitor daily CBC. 5. DANYEL, resolved ? Creatinine 1.35 on admit, improved to 0.68 (baseline) with IV fluids. 6. Oral thrush ? Nystatin suspension swish for 7 days. 7. Nausea/vomiting/diarrhea, resolved ? Unclear etiology. Has had no episodes of vomiting or diarrhea since admission. CT abdomen pelvis as above. Enteric panel and C. difficile ordered, unable to be collected. Continue IV PPI twice daily as above for now. 8. Debility ? Lives at home with but appears to be quite debilitated at baseline. PT/OT/case management following. has appropriate set up for her at home, denies any needs on discharge, planning for home on discharge. Chronic medical conditions: ? History of RAUL: Continue home CPAP. ? Hypothyroidism: Continue home Synthroid and liothyronine. ? Chronic hypoxic respiratory failure secondary to COPD: Follows with pulmonology, sees Dr. Page. Supposed to be on 2 L [id number], however she is only wearing this as needed. Weaning supplemental oxygen as able as noted above. Recommend outpatient follow-up after discharge. ? CAD/hypertension/hyperlipidemia: Continue home statin, Plavix, metoprolol. Holding home Lasix for now. ? Anxiety/depression/fibromyalgia: Continue home Topamax, Cymbalta, BuSpar, lorazepam, hydroxyzine. DVT prophylaxis: SCDs CODE STATUS: DNR CCA, okay to intubate Expected disposition: TBD Total clinical time spent by myself addressing the patient's medical issues, reviewing all the data, and collaborating with patient's care team: 35 minutes. Medications at Discharge Home Medications atorvastatin 80 mg tablet 80 mg PO QHS cholesterol 06/01/13 clopidogrel 75 mg tablet 75 mg PO DAILY anti platelet 06/01/13 metoprolol tartrate 25 mg tablet 12.5 mg PO BID blood pressure 06/01/13 lorazepam 1 mg tablet (Ativan) 1 mg PO BID-TID PRN Anxiety 11/17/18 hydroxyzine HCl 50 mg tablet 50 mg PO QHS 12/01/18 duloxetine 60 mg capsule,delayed release 60 mg PO BID 06/19/20 buspirone 7.5 mg tablet 7.5 mg PO BID 06/03/22 furosemide 40 mg tablet 60 mg PO DAILY 08/23/22 hydroxychloroquine 200 mg tablet 200 mg PO BID 08/23/22 levothyroxine 50 mcg tablet 50 mcg PO DAILY 08/23/22 liothyronine 5 mcg tablet 25 mcg PO DAILY 08/23/22 pregabalin 50 mg capsule 50 mg PO DAILY 08/23/22 topiramate 25 mg tablet 50 mg PO QHS 08/23/22 triamcinolone acetonide 0.1 % topical cream 1 applic topical BID 08/23/22 albuterol sulfate 90 mcg/actuation aerosol inhaler 1 - 2 puff inhalation Q6H PRN PRN COPD #2 device 03/11/23 guaifenesin 1,200 mg tablet, extended release 12 hr 1,200 mg PO Q12H #60 tabs 03/11/23 ipratropium 0.5 mg-albuterol 3 mg (2.5 mg base)/3 mL nebulization soln 3 ml inhalation Q4H PRN SOB #180 mL 03/11/23 mometasone-formoterol HFA 200 mcg-5 mcg/actuation aerosol inhaler (Dulera) 2 inh inhalation BID #3 ea 03/11/23 montelukast 10 mg tablet 10 mg PO QPM #90 tabs 03/11/23 nystatin 100,000 unit/mL oral suspension 5 ml mucous membrane TID #250 mL 1 05/11/22 tiotropium bromide 2.5 mcg/actuation mist for inhalation (Spiriva Respimat) 2 inh inhalation DAILY #3 ea 03/11/23 pantoprazole 40 mg tablet,delayed release 40 mg PO BID 30 days #60 tabs 05/06/23 prednisone 20 mg tablet 40 mg (2 x 20 mg) PO BREAKFAST 2 days #4 tabs 01/10/24 Hospital Course Operations None Procedures EGD, EKG and - (Chest x-ray, CT abdomen pelvis with IV contrast) Summary of Care Provided Minutes Spent on Discharge: 35 Hospital Course: Patient is a 67-year-old female who presented to [facility] ED on 05/03/2023 with several concerns including shortness of breath, nausea/vomiting, diarrhea, fevers and worsening weakness. Hospital course as noted below. Discharged home in stable condition on 05/06. 1. Acute on chronic normocytic anemia, gastric ulcer Hemoglobin 8.6 on admit, down trended to 5.9 on 05/04. No dark or bright red blood in stools noted. Likely some component of hemodilution due to fluid resuscitation on admit as noted below. However, also with concern for new onset GI bleed. CT abdomen pelvis with IV contrast showed thickening of gastric antrum and pylorus of unc lear etiology, endoscopy recommended, diverticulosis without evidence of acute diverticulitis, otherwise unremarkable. Iron studies 05/04 unremarkable. S/p 2 units packed red blood cells on 05/04, repeat hemoglobin 9.2. ? GI followed. S/p EGD on 05/05 that showed an oozing gastric ulcer that was caut erized. De-escalated to p.o. PPI twice daily on 05/06. Hemoglobin remained stable after transfusions. Recommend repeat CBC in 1 to 2 weeks. 2. Sepsis secondary to influenza A with concern for superimposed bacterial pneumonia, acute hypoxia on chronic hypoxic respiratory failure Met sepsis criteria on admit with tachycardia, elevated respiratory rate, markedly elevated WBC count, lactic acidosis, new hypoxia, suspected source. Chest x-ray on admit with no acute cardiopulmonary process. Influenza A positive. Given fluid bolus at 30 cc/kg on admit with improvement in blood pressure. Urine antigens negative. Respiratory PCR panel negative. Blood cultures, sputum culture, urine culture negative. ? Initially on vancomycin and cefepime, discontinued on 05/05 after negative cultures. De-escalated to p.o. steroids in 05/05, will complete 5-day course total with stop date 05/08. Home O2 testing done prior to discharge, patient required 4 L nasal cannula at rest, new oxygen requirement form signed. Recommend outpatient follow-up with pulmonology in the next few weeks. 3. Lactic acidosis, resolved ? Suspect related to above and underlying hypoxia, improved with fluid boluses. 4. Leukocytosis/thrombocytosis, improving ? Suspect reactive from infection. Patient has also been on steroids. Improving on discharge. 5. DANYEL, resolved ? Creatinine 1.35 on admit, improved to 0.68 (baseline) with IV fluids. 6. Oral thrush ? Nystatin suspension swish while inpatient. 7. Nausea/vomiting/diarrhea, resolved ? Unclear etiology. Has had no episodes of vomiting or diarrhea since adm ission. CT abdomen pelvis as above. Enteric panel and C. difficile ordered, unable to be collected. Discharged on p.o. PPI twice daily as noted above. 8. Debility ? Lives at home with but appears to be quite debilitated at baseline. PT/OT/case management following. has appropriate set up for her at home, denies any needs on discharge, discharged home without issue. Chronic medical conditions: ? History of RAUL: Continue home CPAP. ? Hypothyroidism: Continue home Synthroid and liothyronine. ? Chronic hypoxic respiratory failure secondary to COPD: Follows with pulmonology, sees Dr. Page. Supposed to be on 2 L [id number], however she is only wearing this as needed. Plan as noted above. ? CAD/hypertension/hyperlipidemia: Continue home statin, Plavix, metoprolol. Restart home Lasix on discharge. ? Anxiety/depression/fibromyalgia: Continue home Topamax, Cymbalta, BuSpar, lorazepam, hydroxyzine. Total clinical time spent by myself addressing the patient's discharge needs: 35 minutes. Physical Exam Const alert, no apparent distress and average body habitus Constitutional Narrative: Elderly female, chronically ill-appearing, sitting up comfortably in bed, short appropriate responses to questions, no acute distress. General Appearance: cooperative and comfortable HEENT normocephalic, head/scalp atraumatic, hearing grossly normal bilaterally and nasal mucous membranes and turbinates normal Eyes PERRL, EOMs intact bilaterally and conjunctivae normal Neck full ROM, no lymphadenopathy and supple Lymph Lymphatic: no lymphadenopathy noted Chest inspection of chest normal Resp normal respiratory effort and no use of accessory muscles Resp Narrative: Mildly decreased breath sounds bilaterally, no wheezing or crackles noted. Cardio regular rate, regular rhythm, no murmurs and peripheral pulses 2+ throughout GI normal to inspection, nondistended, normoactive bowel sounds, soft to palpation, non-tender and non-distended Back/Spine normal ROM Extremity normal to inspection, full ROM and no pedal edema Skin no rashes or lesions noted Neuro no focal motor deficits and no sensory deficits noted Speech: speech normal Psych mental status grossly normal Medical Records Data Medical Nutrition Assessment Dietitian: Malnutrition Criteria Met Start: 05/04/23 14:24 Freq: Status: Active Protocol: Document 05/04/23 14:28 SLA (Rec: 05/04/23 14:28 SLA Desktop) Nutrition Malnutrition Evidence of Malnutrition Exists Yes Malnutrition (severe): Acute Illness/Injury Evidenced By Suboptimal Energy Intake ( Severe),Weight Loss (Severe) Clinical Problem Acute Disease or Injury Related Malnutrition Etiology related to gi dysfunction and inability to consume adequate energy Signs/Symptoms as evidenced by 4.3% unintended wt loss and po intake <50% of est nutritional needs x < 1 wk Status Active Problem Recommendation Dietitian Recommendations/Changes Will liberalize diet to regular d/t signs and symptoms of malnutrition Will continue 4 oz ensure plus high protein 4x/day w/ medpass for increased nutrition if consumed. Weight / BMI Weight Weight: 60.781 kg Body Mass Index (BMI) 27.0 ABG / Lab / Microbiology Data 05/06/23 06:51 05/05/23 05:45 Laboratory: Laboratory Results - last 24 hr 05/06/23 06:51: WBC 16.7 H, RBC 3.34 L, Hgb 9.1 L, Hct 27.6 L, MCV 82.6, MCH 27.2, MCHC 33.0, RDW Std Deviation 52.2 H, RDW Coeff of Genaro 17.5 H, Plt Count 467 H, MPV 9.5 Microbiology: Microbiology 05/03/23 09:26 Urine, Catheterized Urine Culture - Preliminary Alpha hemolytic organism Alpha hemolytic organism#2 05/03/23 17:42 Sputum, Expectorated/Coughed Gram Stain - Final 05/03/23 17:42 Sputum, Expectorated/Coughed Respiratory Culture - Final Mixed normal respiratory gera. No Streptococcus pneumoniae, beta-hemolytic Streptococcus or Staphylococcus aureus isolated. 05/03/23 10:40 Blood Culture (Wb) - Anticubital Left Blood Culture - Preliminary Coag Negative Staph 05/05/23 00:05 Stool Stool Occult Blood (ELFEGO) - Final Occult Blood Positive 05/03/23 15:59 Mucosa - Nose Respiratory Panel (PCR) - Final 05/03/23 09:26 Urine, Random Legionella Antigen - Final 05/03/23 09:26 Urine, Random Streptococcus pneumoniae Antigen (M - Final 05/03/23 08:38 Mucosa - Nose SARS-CoV-2, Influenza & RSV (PCR) - Final Influenzae A D/C Instructions Discharge Diet: No restrictions Weight Bearing Status: Full weight bearing Pending Tests Upon Discharge: None Please Follow Up With: Chrystal Michel, When: As needed Meaningful Use Info Meaningful Use Diagnoses (Choose all that apply): None applicable Discharge Plan Admission Admit Date/Time: 05/03/23 13:03 Primary Reason for Your Visit: Influenza A infection, anemia Attending Provider: David Blackwell Primary Care Provider: Chrystal Michel Consulting Providers: Cherelle Almendarez; Friend,Sree Instructions Additional Instructions / Restrictions: Please take medications as noted below. Follow-up with your primary care doctor as needed. Discharge Orders/Prescriptions Prescriptions: New prednisone 20 mg Tablet 40 mg PO BREAKFAST 2 Days Qty: 4 0RF pantoprazole 40 mg Tablet,Delayed Release (Dr/Ec) 40 mg PO BID 30 Days Qty: 60 0RF Continued lorazepam [Ativan] 1 mg tablet 1 mg PO BID-TID PRN (Reason: Anxiety) hydroxyzine HCl 50 mg tablet 50 mg PO QHS buspirone 7.5 mg tablet 7.5 mg PO BID albuterol sulfate 90 mcg/actuation HFA aerosol inhaler 1 - 2 puff INHALATION Q6H PRN PRN (Reason: COPD) Qty: 2 6RF ipratropium-albuterol 0.5 mg-3 mg(2.5 mg base)/3 mL solution for nebulization 3 ml INHALATION Q4H PRN (Reason: SOB) Qty: 180 3RF Dulera 200-5 mcg/actuation HFA aerosol inhaler 2 inh inhalation BID Qty: 3 3RF montelukast 10 mg tablet 10 mg PO QPM Qty: 90 3RF Spiriva Respimat 2.5 mcg/actuation mist 2 inh INHALATION DAILY Qty: 3 3RF nystatin 100,000 unit/mL suspension 5 ml mucous membrane TID Qty: 250 1RF Rx Instructions: swish and swallow 5 cc three times per day for 10 days guaifenesin 1,200 mg tablet extended release 12hr 1,200 mg PO Q12H Qty: 60 6RF clopidogrel 75 MG tablet 75 mg PO DAILY Patient Comments: STOPPED FRO SURGERY, DR INSTRUCTIONS atorvastatin 80 MG tablet 80 mg PO QHS metoprolol tartrate 25 MG tablet 12.5 mg PO BID duloxetine 60 MG capsule 60 mg PO BID furosemide 40 mg Tablet 60 mg PO DAILY topiramate 25 mg tablet 50 mg PO QHS liothyronine 5 mcg tablet 25 mcg PO DAILY triamcinolone acetonide 0.1 % cream 1 applic TOPICAL BID levothyroxine 50 mcg tablet 50 mcg PO DAILY hydroxychloroquine 200 mg tablet 200 mg PO BID Patient Comments: TAKE 1 TABLET BY MOUTH TWICE DAILY pregabalin 50 mg capsule 50 mg PO DAILY Discontinued diclofenac sodium 75 mg tablet,delayed release (DR/EC) 75 mg PO BID prednisone 20 mg tablet 40 mg PO DAILY Qty: 10 0RF Referrals / Follow Up: Chrystal Michel DO [Primary Care Provider] - (I let a message for the office to call the patient and set a appointment with patient.) Disposition Disposition (needs filled in before D/C Order can be placed): Home, Self Care Charges/Coding Visit Charges Inpatient E&M: 63779 Subs Hosp L2
--- NOTE | 2023-05-06 12:19 | PHA.DC.MR.R ---
Pharmacy [place] Med Reconciliation Pharmacy Service has performed discharge medication reconciliation for this patient. Patient has been on both medications in the past. Did not counselor nurses[employer]. The patient's discharge medication list was reviewed for discrepancies and discrepancies were resolved. Medications at Discharge Home Medications atorvastatin 80 mg tablet 80 mg PO QHS cholesterol 06/01/13 clopidogrel 75 mg tablet 75 mg PO DAILY anti platelet 06/01/13 metoprolol tartrate 25 mg tablet 12.5 mg PO BID blood pressure 06/01/13 lorazepam 1 mg tablet (Ativan) 1 mg PO BID-TID PRN Anxiety 11/17/18 hydroxyzine HCl 50 mg tablet 50 mg PO QHS 12/01/18 duloxetine 60 mg capsule,delayed release 60 mg PO BID 06/19/20 buspirone 7.5 mg tablet 7.5 mg PO BID 06/03/22 furosemide 40 mg tablet 60 mg PO DAILY 08/23/22 hydroxychloroquine 200 mg tablet 200 mg PO BID 08/23/22 levothyroxine 50 mcg tablet 50 mcg PO DAILY 08/23/22 liothyronine 5 mcg tablet 25 mcg PO DAILY 08/23/22 pregabalin 50 mg capsule 50 mg PO DAILY 08/23/22 topiramate 25 mg tablet 50 mg PO QHS 08/23/22 triamcinolone acetonide 0.1 % topical cream 1 applic topical BID 08/23/22 albuterol sulfate 90 mcg/actuation aerosol inhaler 1 - 2 puff inhalation Q6H PRN PRN COPD #2 device 03/11/23 guaifenesin 1,200 mg tablet, extended release 12 hr 1,200 mg PO Q12H #60 tabs 03/11/23 ipratropium 0.5 mg-albuterol 3 mg (2.5 mg base)/3 mL nebulization soln 3 ml inhalation Q4H PRN SOB #180 mL 03/11/23 mometasone-formoterol HFA 200 mcg-5 mcg/actuation aerosol inhaler (Dulera) 2 inh inhalation BID #3 ea 03/11/23 montelukast 10 mg tablet 10 mg PO QPM #90 tabs 03/11/23 nystatin 100,000 unit/mL oral suspension 5 ml mucous membrane TID #250 mL 03/11/23 tiotropium bromide 2.5 mcg/actuation mist for inhalation (Spiriva Respimat) 2 inh inhalation DAILY #3 ea 03/11/23 pantoprazole 40 mg tablet,delayed release 40 mg PO BID 30 days #60 tabs 05/06/23 prednisone 20 mg tablet 40 mg (2 x 20 mg) PO BREAKFAST 2 days #4 tabs 05/06/23
--- NOTE | 2023-05-06 12:33 | CASEMGMT ---
DEWAYNE LOPEZ to room at this time for DC assistance. Pt states they are interested in continuing home meal delivery. Pt previously was going through [employer]. Additional list provided for other options. The pt also states that she needs a new Electrical WC. This RN CM updated the pt that they need to go through their PCP to obtain this. Denies the need of a regular WC. Pt is at bedside and states he will drive her home. Pt denies the need for any HHC, SNF, or outpatient therapy. Pt states she feels safe being DC home via her at this time.
== END 2023-05-06 13:57 | disposition home or self-care (01) | DRG 193 ==
LOC: ED 11:27 → MS3 12:38
PROVIDERS: Internal Medicine Gastroenterology; Admitting Provider Internal Medicine; Emergency Provider Emergency Medicine; PCP Family Medicine; Visit Provider Hospitalist
PROC: 0DJ08ZZ Inspection of Upper Intestinal Tract, Via Natural or Artificial Opening Endoscopic (ICD-10-PCS; CPT 43235; principal; 2023-05-05 15:40)
DX: J10.08 Influenza due to other identified influenza virus with other specified pneumonia (principal); E43 Unspecified severe protein-calorie malnutrition; R65.20 Severe sepsis without septic shock; K26.4 Chronic or unspecified duodenal ulcer with hemorrhage; K57.91 Diverticulosis of intestine, part unspecified, without perforation or abscess with bleeding; N17.9 Acute kidney failure, unspecified; J96.11 Chronic respiratory failure with hypoxia; B37.0 Candidal stomatitis; J44.0 Chronic obstructive pulmonary disease with (acute) lower respiratory infection; E89.0 Postprocedural hypothyroidism; I10 Essential (primary) hypertension; D50.9 Iron deficiency anemia, unspecified; F32.A Depression, unspecified; J15.9 Unspecified bacterial pneumonia; M79.7 Fibromyalgia; I25.10 Atherosclerotic heart disease of native coronary artery without angina pectoris; E78.5 Hyperlipidemia, unspecified; F41.9 Anxiety disorder, unspecified; G47.33 Obstructive sleep apnea (adult) (pediatric); Z11.52 Encounter for screening for COVID-19; R53.81 Other malaise; Z68.27 Body mass index [BMI] 27.0-27.9, adult; Z66 Do not resuscitate; Z88.0 Allergy status to penicillin; Z79.51 Long term (current) use of inhaled steroids; Z79.52 Long term (current) use of systemic steroids; Z79.02 Long term (current) use of antithrombotics/antiplatelets; Z79.890 Hormone replacement therapy; Z87.891 Personal history of nicotine dependence
CPT/HCPCS: 36415; 36569; 36600; 71046; 74177; 80048; 80053; 80202; 81001; 82274; 82728; 82803; 83540; 83550; 83605; 83690; 83735; 84100; 84443; 84484; 85025; 85027; 85610; 85730; 86850; 86900; 86901; 86920; 86922; 87040; 87070; 87086; 87088; 87205; 87449; 87631; 87633; 87641; 88305; 93005; 94002; 94003; 94640; 94660; 94668; 94762; 97162; 97166; 97802; 99252; 99283; J7030; J7040; J7120; P9016; Q9967; A4216; G0463; J0744; J2405

== ENCOUNTER → 2023-05-21 | Outpatient (CLI) | payer MEDICARE, SELFPAY ==
--- OUTSIDE RECORDS SUMMARY | 2023-05-21 12:22 | XMS RPT_ITS | CCD ---
Author Name Unknown Address [address] [place] [address] Organization [facility] Care Team Providers Care Decker Operator Name Role Phone [facility] RO[facility] 01, [id number] Unavaila ble Unavailable Malys, Chrystal A Unavailable Unavailable Tabbaa, Parveziba Unavailable Unavailable Tabbaa, Parveziba Unavailable Unavailable Malys, Chrystal A Unavailable Unavailable Unavailable Vanna Hendricks MD Unavailable Unavailable Unavailable Unavailable PAULA MOSS Attending Unavailable PAULA MOSS Admitting Unavailable MALYS, CHRYSTAL Yvette Primary Care Unavailable Tabbaa, Dr. Meeks Attending Unavailable Malys, Dr. Chrystal Muhammad Primary Care Unavailable Malys, Dr. Chrystal Muhammad Primary Care Unavailable Tabbaa, Dr. Meeks Attending Unavailable Malys, Dr. Chrystal Muhammad Primary Care Unavailable Tabbaa, Dr. Meeks Attending Unavailable Malys, Dr. Chrystal Muhammad Primary Care Unavailable Tabbaa, Dr. Meeks Attending Unavailable Tabbaa, Dr. Meeks Referring Unavailable Malys, Dr. Chrystal Muhammad Primary Care Unavailable Tabbaa, Dr. Meeks Attending Unavailable Malys, Dr. Chrystal Muhammad Primary Care Unavailable Tabbaa, Dr. Meeks Attending Unavailable Tabbaa, Dr. Meeks Attending Unavailable Malys, Dr. Chrystal Muhammad Primary Care Unavailable Malys, Dr. Chrystal Muhammad Primary Care Unavailable Tabbaa, Dr. Meeks Attending Unavailable Malys, Dr. Chrystal Muhammad Primary Care Unavailable Tabbaa, Dr. Meeks Attending Unavailable Malys, Dr. Chrystal Muhammad Primary Care Unavailable Tabbaa, Dr. Meeks Admitting Unavailable Tabbaa, Dr. Meeks Attending Unavailable Tabbaa, Dr. Meeks Referring Unavailable Malys, Dr. Chrystal Muhammad Primary Care Unavailable Tabbaa, Dr. Meeks Attending Unavailable Malys, Dr. Chrystal Muhammad Primary Care Unavailable Tabbaa, Dr. Meeks Attending Unavailable Tabbaa, Dr. Meeks Referring Unavailable Malys, Dr. Chrystal Muhammad Primary Care Unavailable Tabbaa, Dr. Meeks Attending Unavailable Malys, Dr. Chrystal Muhammad Primary Care Unavailable Tabbaa, Dr. Meeks Attending Unavailable Tabbaa, Dr. Meeks Attending Unavailable Malys, Dr. Chrystal Muhammad Primary Care Unavailable Malys, Dr. Chrystal Muhammad Primary Care Unavailable Tabbaa, Dr. Meeks Attending Unavailable Malys, Dr. Chrystal Muhammad Primary Care Unavailable Tabbaa, Dr. Meeks Attending Unavailable Malys, Dr. Chrystal Muhammad Primary Care Unavailable Tabbaa, Dr. Meeks Attending Unavailable Malys, Dr. Chrystal Muhammad Primary Care Unavailable Tabbaa, Dr. Meeks Attending Unavailable Malys, Dr. Chrystal Muhammad Primary Care Unavailable Tabbaa, Dr. Meeks Attending Unavailable Tabbaa, Dr. Meeks Referring Unavailable Malys, Dr. Chrystal Muhammad Primary Care Unavailable Tabbaa, Dr. Meeks Attending Unavailable Malys Chrystal GAMBOA Primary Care Provider [phone] Malys Chrystal GAMBOA Primary Care Provider [phone] SIMONS, BEAU T Referring Unavailable MALYS, CHRYSTAL MUHAMMAD Primary Care Unavailable MALYS, CHRYSTAL [place] Primary Care Unavailable SIMONS, BEAU T Referring Unavailable TABBAGERALDINE TothTAIBA Attending Unavailable MALYSCHRYSTAL Primary Care Unavailable SIMONS, BEAU T Referring Unavailable MALYS, CHRYSTAL [place] Primary Care Unavailable SIMONS, BEAU T Referring Unavailable MALYS, CHRYSTAL [place] Primary Care Unavailable TABBAA, KUTAIBA Referring Unavailable MALYS, CHRYSTAL [place]AM[place] Primary Care Unavailable SIMONS, BEAU T Referring Unavailable MALYS, CHRYSTAL [place] Primary Care Unavailable TABBAA, PARVEZIBA Attending Unavailable MALYS, CHRYSTAL [place] Primary Care Unavailable Allergies Allergy Classification Reported Allergen(s) Allergy Type Date of Onset Reaction(s) Facility (20 sources) Adhesive Tape Allergy to substance (finding) [facility] [address] Work Phone: (20 sources) Clarithromycin; Translations: [Biaxin] Drug Allergy [facility] [address] Work Phone: (20 sources) Doxycycline; Translations: [doxycycline] Drug Allergy 9 Hives, Itching [facility] Repository (20 sources) Penicillins; Translations: [Penicillins] Allergy to drug (finding) 9 [facility]ository (20 sources) Sulfonamides (Antibiotic); Translations: [sulfa] Allergy to drug (finding) [facility] [address] Work Phone: (18 sources) Cefaclor; Translations: [Ceclor] Drug Allergy [facility] Work Phone: (1 source) Adhesive Tape; Translations: [ADHESIVE TAPE (ROSINS)] Propensity to adverse reactions (disorder) 9 [facility] Repository (4 sources) Cefaclor; Translations: [CEFACLOR] Drug Allergy 9 Hives, Itching [facility] Repository (4 sources) Clarithromycin; Translations: [CLARITHROMYCIN] Drug Allergy 9 Hives, Itching [facility] Rep[facility] (4 sources) Sulfonamides (Antibiotic); Translations: [SULFA (SULFONAMIDE ANTIBIOTICS)] Propensity to adverse reactions to drug (disorder) 9 Hives [facility] Repository (3 sources) Adhesive agent; Translations: [ADHESIVE] Drug Intolerance 9 Hives [facility] (2 sources) Penicillins Drug Allergy 3 Hives, Itching [facility] Work Phone: (3 sources) Sulfamethoxazole ; Translations: [SULFAMETHOXAZOL E] Drug Allergy 3 Unknown, Itching, Nausea/vomitin g [facility] Work Phone: (3 sources) Adhesive Tape-Silicones; Translations: [ADHESIVE TAPE-SILICONES] Propensity to adverse reactions 3 Itching, Other [facility] Medications Current Medications Medication Drug Class(es) Dates Sig (Normalized) Sig (Original) acetaminophen 500 mg oral tablet (2 sources) Start: 02-15-2019 take 2 tablets by mouth four times daily acetaminophen (Tylenol) 500 mg tablet Take 2 tablets (1,000 mg) by mouth 4 times a day. 0 02/15/2019 Active [id number] 200 actuat albuterol 0.09 mg/actuat metered dose inhaler (6 sources) beta2-Adrenergic Agonist Start: 01-09-2023 albuterol 90 mcg/actuation inhaler Completed/Discontinued Medications Medication Drug Class(es) Dates Sig (Normalized) Sig (Original) ascorbic acid 60 mg / beta carotene 5000 unt / copper sulfate 40 mg / dl-alpha tocopheryl acetate 30 unt / sodium selenite 0.04 mg / zinc oxide 40 mg oral tablet (2 sources) Vitamin C Centrum TABS Refills: 0 Active baclofen 10 mg oral tablet (5 sources) gamma-Aminobutyri c Acid-ergic Agonist Start: 12-09-2022 take 1 tablet by mouth three times daily, then take 2 tablets by mouth three times daily Baclofen 10 MG Oral Tablet Take 1 p.o. 3 times daily time 1 week may increase to 2 p.o. 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, unspecified lower leg, initial encounter; Translations: [Complete traum amp at lev betw kn ankl, unsp low leg, init] Onset: 12-31-2022 Chronic Osteoporosis (2 sources) Age-related osteoporosis without current pathological fracture; Translations: [Age-related osteoporosis without current pathological fracture] Onset: 03-03-2023 Chronic Other bone disease and musculoskeletal deformities (1 source) Acquired absence of right leg below knee; Translations: [History of right below knee amputation (HCC)] Onset: 11-11-2017 Chronic Other connective tissue disease (1 source) Secondary fibrositis; Translations: [Secondary fibromyalgia] Episodic Other connective tissue disease (20 sources) Fibromyalgia; Translations: [Myalgia and myositis, unspecified] Onset: 02-04-2023 02-04-2023 Episodic Other connective tissue disease (1 source) Myalgia, unspecified site; Translations: [Myalgias] Onset: 11-26-2022 Episodic Other lower respiratory disease (1 source) Productive cough ; Translations: [Productive cough] Onset: 11-26-2022 Episodic Other lower respiratory disease (1 source) Shortness of breath; Translations: [Shortness of breath] Onset: 11-26-2022 Episodic Other lower respiratory disease (1 source) Other disorders of lung; Translations: [Other disorders of lung] Onset: 12-09-2022 Episodic Other nervous system disorders (14 sources) Chronic idiopathic pain syndrome; Translations: [Chronic pain syndrome] Onset: 02-04-2023 03-03-2023 Chronic Other nervous system disorders (8 sources) Chronic pain syndrome; Translations: [Chronic pain syndrome] Onset: 12-09-2022 Chronic Other nervous system disorders (3 sources) Other chronic pain; Translations: [Other chronic pain] Onset: 01-15-2023 Chronic Other nervous system disorders (3 sources) Chronic pain syndrome; Translations: [Chronic pain syndrome] Onset: 12-09-2022 Chronic Pathological fracture (3 sources) Osteoporosis; Translations: [Age-related osteoporosis with current pathological fracture, unspecified site, sequela] Onset: 03-03-2023 03-03-2023 Episodic Pneumonia (except that caused by tuberculosis or sexually transmitted disease) (1 source) Pneumonia, unspecified organism; Translations: [Pneumonia] Onset: 11-26-2022 Episodic Septicemia (except in labor) (1 source) Sepsis, unspecified organism; Translations: [Sepsis without acute organ dysfunction, due to unspecified organism (HCC)] Onset: 11-26-2022 Episodic Spondylosis; intervertebral disc disorders; other back problems (20 sources) Lumbar post-laminectomy syndrome; Translations: [Postlaminectomy syndrome, lumbar region] Onset: 12-09-2022 Chronic Spondylosis; intervertebral disc disorders; other back problems (3 sources) Cervicalgia; Translations: [Radiculopathy, lumbar region] Onset: 01-27-2022 Episodic Substance-related disorders (1 source) Nicotine dependence, cigarettes, uncomplicated; Translations: [Nicotine dependence, cigarettes, uncomplicated] Onset: 01-27-2022 Chronic Transient cerebral ischemia (20 sources) Transient cerebral ischemia; Translations: [Unspecified transient cerebral ischemia] Chronic Urinary tract infections (1 source) Urinary tract infection, site not specified; Translations: [Urinary tract infection without hematuria, site unspecified] Onset: 11-26-2022 Episodic Past or Other Problems Problem Classification Problem Date Documented Da te Episodic/Chronic Allergic reactions (2 sources) Allergy status to penicillin; Translations: [Allergy status to sulfonamides status] Onset: 01-27-2022 Episodic Mood disorders (2 sources) Mood disorders Onset: 03-03-2023 03-03-2023 Other connective tissue disease (6 sources) Fibromyalgia; Translations: [Fibromyalgia] Onset: 12-09-2022 Episodic Other nervous system disorders (2 sources) Chronic idiopathic pain syndrome; Translations: [Chronic idiopathic pain syndrome] Unclassified (20 sources) Below knee amputation status, right; Translations: [Below knee amputation status, right] Unclassified (2 sources) Onset: 03-03-2023 Resolved: 05-19-2023 03-03-2023 NEGATED: Highlighted row has been ruled out!Residual codes; unclassified (7 sources) Disease Episodic Results Test Name Value Interpretation Reference Range Facil ity Vital Signs Date Time Vital Sign Value Performing Clinician Facility 05-19-2023 08:34-0500 Body height 144.8 cm Vanna Hendricks MD Work Phone: [facility] 05-19-2023 08:34-0500 Body mass index (BMI) [Ratio] 30.08 kg/m2 Vanna Hendricks MD Work Phone: [facility] 05-19-2023 08:34-0500 Body temperature 96.3 [degF] Vanna Hendricks MD Work Phone: [facility] 05-19-2023 08:34-0500 Body weight 63.05 kg Vanna Hendricks MD Work Phone: [facility] 05-19-2023 08:34-0500 Diastolic blood pressure 58 mm[Hg] Vanna Hendricks MD Work Phone: [facility] 05-19-2023 08:34-0500 Heart rate 65 /min Vanna Hendricks MD Work Phone: [facility] 05-19-2023 08:34-0500 Respiratory rate 16 /min Vanna Hendricks MD Work Phone: [facility] 05-19-2023 08:34-0500 Systolic blood pressure 109 mm[Hg] Vanna Hendricks MD Work Phone: [facility] 03-03-2023 07:56-0500 Body temperature 97.9 [degF] Vanna Hendricks MD Work Phone: [facility] 03-03-2023 07:56-0500 Diastolic blood pressure 61 mm[Hg] Vanna Hendricks MD Work Phone: [facility] 03-03-2023 07:56-0500 Heart rate 66 /min Vanna Hendricks MD Work Phone: [facility] 03-03-2023 07:56-0500 Respiratory rate 16 /min Vanna Hendricks MD Work Phone: [facility] 03-03-2023 07:56-0500 SaO2% (BldA) [Mass fraction] 91 % Vanna Hendricks MD Work Phone: [facility] 03-03-2023 07:56-0500 Systolic blood pressure 113 mm[Hg] Vanna Hendricks MD Work Phone: [facility] 12-09-2022 08:12-0400 Body temperature 97.16 [degF] Chrystal Michel Work Phone: [facility] [place] Work Phone: 12-09-2022 08:12-0400 Diastolic blood pressure 56 mm[Hg] Chrystal Michel Work Phone: [facility] [place] Work Phone: 12-09-2022 08:12-0400 Heart rate 66 /min Chrystal Michel Work Phone: [facility] [place] Work Phone: 12-09-2022 08:12-0400 Respiratory rate 18 /min Chrystal Michel Work Phone: [facility] [place] Work Phone: 12-09-2022 08:12-0400 SaO2% (BldA) [Mass fraction] 95 % Chrystal Michel Work Phone: [facility] [place] Work Phone: 12-09-2022 08:12-0400 Systolic blood pressure 91 mm[Hg] Chrystal Michel Work Phone: [facility] [place] Work Phone: 03-11-2022 08:19-0500 Body height 149.86 cm Chrystal Michel Work Phone: [facility] [place] Work Phone: 03-11-2022 08:19-0500 Body mass index (BMI) [Ratio] 30.3 kg/m2 Chrystal Michel Work Phone: [facility] [place] Work Phone: 03-11-2022 08:19-0500 Body surface area Derived from formula 1.63 m2 Chrystal Eastmanys Work Phone: [facility] [place] Work Phone: 03-11-2022 08:19-0500 Body temperature 97.52 [degF] Chrystal Michel Work Phone: [facility] [place] Work Phone: 03-11-2022 08:19-0500 Body weight 68.04 kg Chrystal Michel Work Phone: [facility] [place] Work Phone: 03-11-2022 08:19-0500 Diastolic blood pressure 59 mm[Hg] Chrystal Michel Work Phone: [facility] [place] Work Phone: 03-11-2022 08:19-0500 Heart rate 71 /min Chrystal Michel Work Phone: [facility] [place] Work Phone: 03-11-2022 08:19-0500 Respiratory rate 18 /min Chrystal Michel Work Phone: [facility] [place] Work Phone: 03-11-2022 08:19-0500 SaO2% (BldA) [Mass fraction] 93 % Chrystal Michel Work Phone: [facility] [place] Work Phone: 03-11-2022 08:19-0500 Systolic blood pressure 100 mm[Hg] Chrystal Michel Work Phone: [facility] [place] Work Phone: 01-03-2022 08:12-0400 Body height 149.86 cm Chrysatl Michel Work Phone: [facility] [place] Work Phone: 01-03-2022 08:12-0400 Body mass index (BMI) [Ratio] 30.3 kg/m2 Chrystal EastmanInterior Define Work Phone: [facility] [place] Work Phone: 01-03-2022 08:12-0400 Body surface area Derived from formula 1.63 m2 Chrystal EastmanInterior Define Work Phone: [facility] [place] Work Phone: 01-03-2022 08:12-0400 Body temperature 96.98 [degF] Chrystal EastmanInterior Define Work Phone: [facility] [place] Work Phone: 01-03-2022 08:12-0400 Body weight 68.04 kg Chrystal EastmanInterior Define Work Phone: [facility] [place] Work Phone: 01-03-2022 08:12-0400 Diastolic blood pressure 74 mm[Hg] Chrystal EastmanInterior Define Work Phone: [facility] [place] Work Phone: 01-03-2022 08:12-0400 Heart rate 69 /min Chrystal Michel Work Phone: [facility] [place] Work Phone: 01-03-2022 08:12-0400 Respiratory rate 18 /min Chrystal EastmanInterior Define Work Phone: [facility] [place] Work Phone: 01-03-2022 08:12-0400 SaO2% (BldA) [Mass fraction] 94 % Chrystal EastmanInterior Define Work Phone: [facility] [place] Work Phone: 01-03-2022 08:12-0400 Systolic blood pressure 107 mm[Hg] Chrystal Michel Work Phone: [facility] [place] Work Phone: 09-17-2021 08:05-0400 Body height 149.86 cm Chrystal Michel Work Phone: [facility] Work Phone: 09-17-2021 08:05-0400 Body temperature 35.8 [degF] Chrystal Michel Work Phone: [facility] Work Phone: 09-17-2021 08:05-0400 Diastolic blood pressure 56 mm[Hg] Chrystal Michel Work Phone: [facility] Work Phone: 09-17-2021 08:05-0400 Heart rate 92 /min Chrystal Michel Work Phone: [facility] Work Phone: 09-17-2021 08:05-0400 Respiratory rate 18 /min Chrystal Michel Work Phone: [facility] Work Phone: 09-17-2021 08:05-0400 SaO2% (BldA) [Mass fraction] 91 % Chrystal Michel Work Phone: [facility] Work Phone: 09-17-2021 08:05-0400 Systolic blood pressure 109 mm[Hg] Chrystal Michel Work Phone: [facility] Work Phone: 04-30-2021 09:05-0500 Body height 149.86 cm Chrystal Michel Work Phone: [facility] Work Phone: 04-30-2021 09:05-0500 Body mass index (BMI) [Ratio] 27.27 kg/m2 Chrystal Michel Work Phone: [facility] Work Phone: 04-30-2021 09:05-0500 Body surface area Derived from formula 1.56 m2 Chrystal EastmanInterior Define Work Phone: [facility] Work Phone: 04-30-2021 09:05-0500 Body weight 61.24 kg Chrystal Eastmanys Work Phone: [facility] Work Phone: 02-21-2021 09:39-0400 Body height 147.32 cm Chrystal Yvette Eastmanys Work Phone: [facility] Work Phone: 02-21-2021 09:39-0400 Body mass index (BMI) [Ratio] 28.01 kg/m2 Chrystal Eastmanys Work Phone: [facility] Work Phone: 02-21-2021 09:39-0400 Body surface area Derived from formula 1.54 m2 Chrystal Eastmanys Work Phone: [facility] Work Phone: 02-21-2021 09:39-0400 Body temperature 36 [degF] Chrystal Michel Work Phone: [facility] Work Phone: 02-21-2021 09:39-0400 Body weight 60.78 kg Chrystal Eastmanys Work Phone: [facility] Work Phone: 02-21-2021 09:39-0400 Heart rate 77 /min Chrystal Yvette Eastmanys Work Phone: [facility] Work Phone: 02-21-2021 09:39-0400 Respiratory rate 18 /min Chrystal Yvette Eastmanys Work Phone: [facility] Work Phone: 02-21-2021 09:39-0400 SaO2% (BldA) [Mass fraction] 95 % Chrystal A Malys Work Phone: [facility] Work Phone: 02-07-2020 11:00-0400 BMI (Body Mass Index) 28.84 kg/m2 Kutaiba Tabbaa [facility] Work Phone: 02-07-2020 11:00-0400 Body Temperature 35.6 [degF] Kutaiba Tabbaa [facility] Work Phone: 02-07-2020 11:00-0400 Body weight 62.6 kg Kutaiba Tabbaa [facility] Work Phone: 02-07-2020 11:00-0400 BP Diastolic 65 mm[Hg] Kutaiba Tabbaa [facility] Work Phone: 02-07-2020 11:00-0400 BP Systolic 127 mm[Hg] Kutaiba Tabbaa [facility] Work Phone: 02-07-2020 11:00-0400 BSA (Body Surface Area) 1.56 m2 Kutaiba Tabbaa [facility] Work Phone: 02-07-2020 11:00-0400 Height 147.32 cm Kutaiba Tabbaa [facility] Work Phone: 02-07-2020 11:00-0400 Pulse (Heart Rate) 68 /min Kutaiba Tabbaa [facility] Work Phone: 02-07-2020 11:00-0400 Pulse Oximetry 99 % Kutaiba Tabbaa [facility] Work Phone: 02-07-2020 11:00-0400 Respiratory Rate 18 /min Kutaiba Tabbaa [facility] Work Phone: 01-10-2020 11:13-0400 Body Temperature 36.2 [degF] [id number] [facility] 01 XK-Rcrggqaczu-Hbulz r [address] Work Phone: 01-10-2020 11:13-0400 BP Diastolic 68 mm[Hg] [id number] [facility] 01 PG-Alrepmpcms-Gbdlk r [address] Work Phone: 01-10-2020 11:13-0400 BP Systolic 114 mm[Hg] [id number] [facility] 01 CM-Mhtcyjogqn-Yevuz r [address] Work Phone: 01-10-2020 11:13-0400 Pulse (Heart Rate) 70 /min [id number] [facility] 01 BA-Zslbozgdtw-Nxyhp r [address] Work Phone: 01-10-2020 11:13-0400 Pulse Oximetry 94 % [id number] [facility] 01 WJ-Efwhmcuhpr-Glyix r [address] Work Phone: 01-10-2020 11:13-0400 Respiratory Rate 18 /min [id number] [facility] 01 GZ-Fqtvidksmm-Dhoup r [address] Work Phone: Encounters Encounter Date Encounter Type Care Provider Facility Start: 05-19-2023 ambulatory VANNA HENDRICKS [facility] Start: 05-19-2023 End: 05-19-2023 Office outpatient visit 25 minutes Vanna Hendricks MD Work Phone: [facility] Procedures Date Procedure Procedure Detail Performing Clinician Start: 05-12-2023 TREATMENT CONDITIONS 2 BEAU SIMONS Start: 04-18-2023 DEXA BONE DENSITY BEAU SIMONS Start: 04-03-2023 PULSE OXIMETRY, CONTINUOUS BEAU SIMONS Start: 04-03-2023 TREATMENT CONDITIONS 2 BEAU SIMONS Start: 03-16-2023 TREATMENT CONDITIONS 2 BEAU SIMONS Start: 02-26-2023 TREATMENT CONDITIONS 2 BEAU SIMONS Start: 02-10-2023 TREATMENT CONDITIONS 2 BEAU SIMONS 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 Chrystal A Malys Work Phone: Cholecystectomy Chrystal Yvette Malys Work Phone: Decompression of med herbert nerve Chrystal Toth Malys Work Phone: Excision of bunion Chrystal A Ma richie Work Phone: History of placement of stent for coronary artery disease H/O heart artery stent Chrystal Michel Work Phone: Plan of Treatment Date Care Activity Detail Author Start: 04-18-2025 Screening for osteoporosis Bone Density Scan [facility] Start: 06-24-2023 End: 06-24-2023 Patient encounter procedure 06/24/2023 8:00 AM EST Infusion [facility] [address] [place] [address] [facility] Start: 06-10-2023 End: 06-10-2023 Patient encounter procedure 06/10/2023 8:00 AM EST Infusion [facility] [address] [place] [address] [facility] Start: 05-26-2023 End: 05-26-2023 Patient encounter procedure 05/26/2023 8:30 AM EST Infusion [facility] [address] [place] [address] [facility] Start: 05-05-2023 COVID-19 Vaccine (4 - Pfizer series) COVID-19 Vaccine (4 - Pfizer series) [facility] Start: 04-18-2023 End: 04-18-2023 Professional / ancillary services management 04/18/2023 8:30 AM EST Ancillary Procedure [facility] [address] [place] [address] [facility] Start: 04-03-2023 End: 04-03-2023 Patient encounter procedure 04/03/2023 7:30 AM EST Infusion [facility] [address] [place] [address] [facility] Start: 03-27-2023 Medicare Annual Wellness Visit Medicare Annual Wellness Visit (AWV) [facility] Start: 03-16-2023 End: 03-16-2023 Patient encounter procedure 03/16/2023 7:30 AM EST Infusion [facility] [address] [place] [address] [facility] Start: 03-03-2023 End: 03-03-2024 DXA Skeletal system Views for bone density XR DEXA bone density Imaging Routine Postlaminectomy syndrome of lumbosacral region Chronic idiopathic pain syndrome Osteoporosis with current pathological fracture, unspecified osteoporosis type, sequela Osteoporosis Expected: 03/03/2023 (Approximate), Expires: 03/03/2024 [facility] Service Area Work Phone: Immunizations Immunization Date Immunization Notes Care Provider Joselyn egan 07-07-2022 Pneumococcal conjuga te vaccine, 20-valent (PREVNAR 20) Vanna Hendricks MD Work Phone: [facility] Work Phone: 01-23-2022 Pfizer COVID-19 vacc ine, bivalent, age 12 years and older (30 mcg/0.3 mL) Vanna Hendricks MD Work Phone: [facility] Work Phone: 01-16-2022 Influenza, Seasonal, Quadrivalent, Adjuvanted Vanna Hendricks MD Work Phone: [facility] Work Phone: 01-16-2022 influenza virus vacc ine, unspecified formulation Vanna Hendricks MD Work Phone: [facility] Work Phone: 10-17-2021 Pfizer Leiva Cap SARS-CoV-2 Vanna Hendricks MD Work Phone: [facility] Work Phone: 01-24-2015 influenza, seasonal, injectable Vanna Hendricks MD Work Phone: [facility] Work Phone: 01-24-2015 zoster vaccine, live Vanna Hendricks MD Work Phone: [facility] Work Phone: 04-27-2014 pneumococcal polysaccharide vaccine, 23 valent Vanna Hendricks MD Work Phone: [facility] Work Phone: Payers Date Payer Category Payer Private Health Insurance [facility] [id number] 2022-Present [address] [place] [address] [id number] 2022 Medicare [id number] 1955 Unknown [id number] 2.16.840.1.034346.3.579.2. 1045 1955 Unknown [id number] 2.16.840.1.084066.3.579.2. 1045 1955 Unknown [id number] 2.16.840.1.095483.3.579.2. 1045 1955 Unknown [id number] 2.16.840.1.370259.3.579.2. 1045 1955 Unknown [id number] 2.16.840.1.821468.3.579.2. 1045 1955 Unknown [id number] 2.16.840.1.210946.3.579.2. 1045 1955 Unknown [id number] 2.16.840.1.824766.3.579.2. 1045 1955 Unknown [id number] 2.16.840.1.956774.3.579.2. 1045 1955 Unknown [id number] 2.16.840.1.429131.3.579.2. 1045 1955 Unknown [id number] 2.16.840.1.251553.3.579.2. 1045 1955 Unknown [id number] 2.16.840.1.622033.3.579.2. 1045 1955 Unknown [id number] 2.16.840.1.006123.3.579.2. 1045 1955 Unknown [id number] 2.16.840.1.910808.3.579.2. 1045 1955 Unknown [id number] 2.16.840.1.375594.3.579.2. 1045 1955 Unknown [id number] 2.16.840.1.416409.3.579.2. 1045 1955 Unknown [id number] 2.16.840.1.014254.3.579.2. 1045 1955 Unknown [id number] 2.16.840.1.252731.3.579.2. 1045 1955 Unknown [id number] 2.16.840.1.382183.3.579.2. 1045 1955 Unknown [id number] 2.16.840.1.553344.3.579.2. 1045 1955 Unknown [id number] 2.16.840.1.866217.3.579.2. 1045 1955 Unknown [id number] 2.16.840.1.702912.3.579.2. 1045 1955 Unknown [id number] 2.16.840.1.127081.3.579.2. 1246 1955 Unknown [id number] 2.16.840.1.471596.3.579.2. 1246 1955 Unknown [id number] 2.16.840.1.339368.3.579.2. 1246 1955 Unknown [id number] 2.16.840.1.199335.3.579.2. 12461956 Unknown [id number] 2.16.840.1.840928.3.579.2. 1247 1955 Unknown [id number] 2.16.840.1.857818.3.579.2. 1247 1955 Unknown [id number] 2.16.840.1.420599.3.579.2. 1247 1955 Unknown [id number] 2.16.840.1.642611.3.579.2. 1247 Private Health Insurance 101 [id number] Unknown Social History Date Type Detail Facility - - [facility] Work Phone: Start: 03-03-2023 End: 05-19-2023 Current every day smoker Current every day smoker [facility] Work Phone: Start: 02-10-2023 Tobacco smoking stat [facility] Occasional tobacco smoker [facility] Work Phone: End: 04-17-2023 History of tobacco use Cigarette Smoker [facility] Work Phone: Start: 02-10-2023 End: 05-19-2023 Tobacco use and exposure Smokeless tobacco non-user [facility] Work Phone: Start: 03-03-2023 End: 05-19-2023 Alcohol intake Ex-drinker (finding) [facility] Work Phone: Start: 03-03-2023 End: 05-19-2023 Tobacco use panel [facility] Work Phone: Start: 1955 Sex Assigned At Not on file [facility] Work Phone: Start: 02-21-2023 End: 05-19-2023 Exposure to SARS-CoV-2 (event) Not sure [facility] Start: 05-19-2023 Tobacco smoking stat us [facility] Ex-smoker [facility] Work Phone: End: 04-17-2023 History of tobacco use Current smoker [facility] Work Phone: History of tobacco use Passive smoker [facility] Work Phone: How often to you hav e a drink containing alcohol? Never [facility] Work Phone: How many standard drinks containing alcohol do you have on a typical day? Patient does not drink [facility] Work Phone: Functional Status Date Assessment Result Facility NEGATED: Highlighted row Functional performance Functional status health issues are not documented Disease [facility] Work Phone: Mental Status Date Assessment Result Facility NEGATED: Highlighted row Cognitive function [Interpretation] Cognitive status health issues are not documented Disease [facility] Work Phone: Clinical Notes 02-21-2021 to 05-19-2023 Vanna Hendricks MD - 05/19/2023 8:45 AM Jared Dumont RN - 05/19/2023 8:45 AM Marley Hendricks MD - 03/03/2023 8:00 AM Jared Dumont RN - 03/03/2023 8:00 AM EST Note Date & Type Note Facility 05-19-2023 History of Present illness Narrative SUBJECTIVE: This is 67 y.o. female with PMH of extensive mental illness with flat affect, smoking with a chronic lower back pain and postlaminectomy syndrome after multiple back surgeries with T9 to sacrum fusion, getting IV infusion therapy and caudal TR was on pregabalin 50 mg 3 times daily from us who is here for follow-up stating that she has been admitted twice to the hospital with pneumonia and before that she had severe anemia and they had to go and cauterize bleeders in her stomach since she was on Plavix because of her CVA. The patient received 6 units of blood as well. The patient looks good today she still looks pale and I do not see the new lab work since she goes to [place]. She would like to continue with her IV infusion therapy since her major admissions to the hospital increase her pain significantly. 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 04/18/2023 bone density study showed lowest T-score -3.5 in the right femur neck Prior office visit: 03/03/2023: This is 67 y.o. female with PMH of extensive mental illness with flat affect, smoking with a chronic lower back pain and postlaminectomy syndrome after multiple back surgeries with thoracic lumbar fusion who did not response in the past to gabapentin and on the last visit I started her on pregabalin 50 mg, she usually gets caudal TR to help her with the pain around once every 6 months to a year and IV infusion therapy with lidocaine/ketamine nasal spray who is here for follow-up stating that the IV infusion is helping her tremendously who is here for follow-up stating that the IV infusion still helping her she is still smoking and she had new fracture of her left foot. I do not see any DEXA scan in the system I ordered a new 1 for her I highly suspect high level of osteoporosis. Diagnostic studies: 04/18/2023 bone density study showed lowest T-score -3.5 in the right femur neck 12/09/2022 X-rays of her cervical and thoracic spine which showed degenerative changes in cervical spine worse at C4-5 and C5-6 and stable T- sacrum fusion Last procedure: 01/27/2022 caudal TR which gave the patient 80% relief with improvement in function and pain 01/13/2022 caudal TR which gave the patient significant pain relief with improvement in function IV infusion therapy once every 2 weeks the patient has had a 100% improvement in pain and function but now lasting only for 5 days even with the nasal spray IV infusion therapy used to last her for 4 weeks now they are lasting her only 2 weeks Portions of record reviewed for pertinent issues: active problem list, medication list, allergies, family history, social history, notes from last encounter, encounters, lab results, imaging and other system records. I have personally reviewed the OARRS report for this patient. This report is scanned into the electronic medical record. I have considered the risks of abuse, dependence, addiction and diversion. It showed lorazepam 1 mg 3 times daily from from [facility] and ketamine + pregabalin 50 mg 3 [place] daily [place] OPIOID RISK ASSESSMENT SCORE 06/22 Work/Pending law suits: On disability Social History: , with 4 kids and multiple grandkids and great grandkids smoker denies drinking or use of illicit drugs Diagnostic studies: 04/18/2023 bone density study showed lowest T-score -3.5 in the right femur neck 12/09/2022 cervical and thoracic spine x-rays showed degenerative changes in the cervical spine worse at C5-6 in addition to thoracic fusion T9-11 and degenerative changes at T12-L1 L2 02/09/2020 cervical MRI report: Showed minimal degenerative changes worse at C4-5 and C5-6: Counting reference: Craniocervical junction. Anatomic Variants: None. Craniocervical junction: Within normal limits. Alignment: There is 2 mm retrolisthesis of C4 on C5. There is normal cervical lordosis. Bones and discs: The cervical vertebral body heights are preserved. There is mild degenerative disc change, most pronounced at C4/C5. Cervical spinal cord: Within normal limits. Cervical extraspinal soft tissues: Within normal limits. Significant findings by level: C2/C3: Unremarkable. C3/C4: Unremarkable. C4/C5: Mild spinal canal stenosis and mild neural foraminal stenosis bilaterally due to 2 mm retrolisthesis of C4 on C5 with associated posterior disc/osteophyte complex and uncovertebral and facet joint hypertrophy. C5/C6: Mild spinal canal stenosis and moderate left neural foraminal stenosis due to posterior disc/osteophyte complex and uncovertebral and facet joint hypertrophy. C6/C7: Unremarkable. C7/T1: Unremarkable. Review of Systems HENT: Negative. Eyes: Negative. Respiratory: Negative. Cardiovascular: Negative. Gastrointestinal: Negative. Endocrine: Negative. Genitourinary: Negative. Musculoskeletal: Positive for arthralgias, back pain, gait problem and myalgias. Skin: Negative. Hematological: Negative. Psychiatric/Behavioral: Negative. Physical Exam Vitals and nursing note reviewed. Constitutional: Appearance: Normal appearance. HENT: Head: Normocephalic and atraumatic. Nose: Nose normal. Eyes: Extraocular Movements: Extraocular movements intact. Conjunctiva/sclera: Conjunctivae normal. Pupils: Pupils are equal, round, and reactive to light. Cardiovascular: Rate and Rhythm: Normal rate and regular rhythm. Pulses: Normal pulses. Heart sounds: Normal heart sounds. Pulmonary: Effort: Pulmonary effort is normal. Breath sounds: Normal breath sounds. Abdominal: General: Abdomen is flat. Bowel sounds are normal. Palpations: Abdomen is soft. Musculoskeletal: General: Tenderness present. Comments: Right GILSON in motorized wheelchair Skin: General: Skin is warm. Neurological: Mental Status: She is alert and oriented to person, place, and time. Psychiatric: Mood and Affect: Mood normal. Behavior: Behavior normal. Plan At least 50% of the visit was involved in the discussion of the options for treatment. We discussed exercises, medication, interventional therapies and surgery. Healthy life style is essential with patient hard work to achieve the wellness. In addition; discussion with the patient and/or family about any of the diagnostic results, impressions and/or recommended diagnostic studies, prognosis, risks and benefits of treatment options, instructions for treatment and/or follow-up, importance of compliance with chosen treatment options, risk-factor reduction, and patient/family education. Pool therapy, walking in the pool, at least 3x per week for 30 minutes Continue self-directed physical therapy Continue IV infusion therapy Patient to contact her mill worker to discuss her osteoporosis therapy Healthy lifestyle and anti-inflammatory diet in addition to weight control discussed with the patient Alternative chronic pain therapies was discussed, encouraged and information was handed Return to Clinic 3 months *Please note this report has been produced using speech recognition software and may contain errors related to that system including grammar, punctuation and spelling as well as words and phrases that may be inappropriate. If there are questions or concerns, please feel free to contact me to clarify. Vanna Hendricks MD This is 67 y.o. female with who has been treated for generalized body pain . Pain is worse, patient states that her pain has become worse since her last office visit eleven 03/03/2023 she has been hospitalized twice with influenza and even sepsis bleeding ulcers. The pain is worse .the pain is described as achiness and is relieved by sleep. Here for follow-up Chief Complaint Patient presents with Follow-up Patient here to discuss the bone density test that was done and follow-up on IV infusion therapy. Patient states that her last 2 IV infusion therapies have not helped her her pain and seems to be worse and scattered throughout her body. Pain Therapies: IV infusion therapy documented in this encounter [facility] Work Phone: 03-03-2023 History of Present illness Narrative SUBJECTIVE: This is 67 y.o. female with PMH of extensive mental illness with flat affect, smoking with a chronic lower back pain and postlaminectomy syndrome after multiple back surgeries with thoracic lumbar fusion who did not response in the past to gabapentin and on the last visit I started her on pregabalin 50 mg, she usually gets caudal TR to help her with the pain around once every 6 months to a year and IV infusion therapy with lidocaine/ketamine nasal spray who is here for follow-up stating that the IV infusion is helping her tremendously who is here for follow-up stating that the IV infusion still helping her she is still smoking and she had new fracture of her left foot. I do not see any DEXA scan in the system I ordered a new 1 for her I highly suspect high level of osteoporosis. Patient had recent x-rays of her cervical and thoracic spine which showed degenerative changes in cervical spine worse at C5-6 and stable T9-11 fusion Prior office visit: 12/09/2022: SUBJECTIVE: This is 67 year year old female recall past medical history of extensive mental illness with flat affect, smoking with a chronic lower back pain and postlaminectomy syndrome after multiple back surgeries with thoracic lumbar fusion who did not response in the past to gabapentin and on the last visit I started her on pregabalin 50 mg, she usually gets caudal TR to help her with the pain around once every 6 months to a year and IV infusion therapy with lidocaine/ketamine nasal spray who is here for follow-up stating that the IV infusion is helping her tremendously. He does not have any pain in her lower back and her lower extremity pain now is around her thoracic spine and the chest wall ribs in addition to neck pain. The patient has had multiple falls transferring from bed to commode. We will plan on x-ray of her thoracic and cervical spine. We will start her on baclofen 10 mg 3 times daily in addition to DC ketamine/lidocaine nasal spray since its not helping anymore. Last procedure: 01/27/2022 caudal TR which gave the patient 80% relief with improvement in function and pain 01/13/2022 caudal TR which gave the patient significant pain relief with improvement in function IV infusion therapy once every 2 weeks the patient has had a 100% improvement in pain and function but now lasting only for 5 days even with the nasal spray IV infusion therapy used to last her for 4 weeks now they are lasting her only 2 weeks Portions of record reviewed for pertinent issues: active problem list, medication list, allergies, family history, social history, notes from last encounter, encounters, lab results, imaging and other system records. I have personally reviewed the OARRS report for this patient. This report is scanned into the electronic medical record. I have considered the risks of abuse, dependence, addiction and diversion. It showed lorazepam 1 mg 3 times daily from from [facility] and ketamine + pregabalin 50 mg 3 times daily [place] OPIOID RISK ASSESSMENT SCORE 06/22 Work/Pending law suits: On disability Social History: , with 4 kids and multiple grandkids and great grandkids smoker denies drinking or use of illicit drugs Diagnostic studies: 12/09/2022 cervical and thoracic spine showed degenerative changes in the cervical spine worse at C5-6 in addition to thoracic fusion T9-11 and degenerative changes at T12-L1 L2 02/09/2020 cervical MRI report: RESULT: Counting reference: Craniocervical junction. Anatomic Variants: None. Craniocervical junction: Within normal limits. Alignment: There is 2 mm retrolisthesis of C4 on C5. There is normal cervical lordosis. Bones and discs: The cervical vertebral body heights are preserved. There is mild degenerative disc change, most pronounced at C4/C5. Cervical spinal cord: Within normal limits. Cervical extraspinal soft tissues: Within normal limits. Significant findings by level: C2/C3: Unremarkable. C3/C4: Unremarkable. C4/C5: Mild spinal canal stenosis and mild neural foraminal stenosis bilaterally due to 2 mm retrolisthesis of C4 on C5 with associated posterior disc/osteophyte complex and uncovertebral and facet joint hypertrophy. C5/C6: Mild spinal canal stenosis and moderate left neural foraminal stenosis due to posterior disc/osteophyte complex and uncovertebral and facet joint hypertrophy. C6/C7: Unremarkable. C7/T1: Unremarkable. There were no vitals taken for this visit. Review of Systems HENT: Negative. Eyes: Negative. Respiratory: Negative. Cardiovascular: Negative. Gastrointestinal: Negative. Endocrine: Negative. Genitourinary: Negative. Musculoskeletal: Positive for arthralgias, back pain, gait problem and myalgias. Skin: Negative. Hematological: Negative. Psychiatric/Behavioral: Negative. Physical Exam Vitals and nursing note reviewed. Constitutional: Appearance: Normal appearance. HENT: Head: Normocephalic and atraumatic. Nose: Nose normal. Eyes: Extraocular Movements: Extraocular movements intact. Conjunctiva/sclera: Conjunctivae normal. Pupils: Pupils are equal, round, and reactive to light. Cardiovascular: Rate and Rhythm: Normal rate and regular rhythm. Pulses: Normal pulses. Heart sounds: Normal heart sounds. Pulmonary: Effort: Pulmonary effort is normal. Breath sounds: Normal breath sounds. Abdominal: General: Abdomen is flat. Bowel sounds are normal. Palpations: Abdomen is soft. Musculoskeletal: Comments: Right BKA and now left foot fracture in the boot Skin: General: Skin is warm. Neurological: Mental Status: She is alert and oriented to person, place, and time. Psychiatric: Mood and Affect: Mood normal. Behavior: Behavior normal. Plan At least 50% of the visit was involved in the discussion of the options for treatment. We discussed exercises, medication, interventional therapies and surgery. Healthy life style is essential with patient hard work to achieve the wellness. In addition; discussion with the patient and/or family about any of the diagnostic results, impressions and/or recommended diagnostic studies, prognosis, risks and benefits of treatment options, instructions for treatment and/or follow-up, importance of compliance with chosen treatment options, risk-factor reduction, and patient/family education. Pool therapy, walking in the pool, at least 3x per week for 30 minutes Continue self-directed physical therapy Renew IV infusion therapy once every 2 weeks orders and plan port placed today DEXA scan ordered because of her new fracture and she is a smoker high risk for osteoporosis Healthy lifestyle and anti-inflammatory diet in addition to weight control discussed with the patient Alternative chronic pain therapies was discussed, encouraged and information was handed Return to Clinic 3 months *Please note this report has been produced using speech recognition software and may contain errors related to that system including grammar, punctuation and spelling as well as words and phrases that may be inappropriate. If there are questions or concerns, please feel free to contact me to clarify. Vanna Hendricks MD This is 67 y.o. female with who has been treated for Lower back pain. Pain is better, The pain is described as achiness and is relieved by IV infusions .Here for follow-up . Patient states that she gets great relief from the IV infusion therapy she gets about 100% pain relief for about 2 weeks then the pain slowly returns. Patient feeling down she fractured her ankle left ankle a month ago. She states that it is giving her flashbacks previous experience with her other ankle. Chief Complaint Patient presents with Follow-up Back Pain Pain Therapies: iv infusions Opioid Risk Assessment Score 05/22 documented in this encounter [facility] Work Phone: 11-28-2022 Note HNO ID: [id number] Author: Paula Moss MD Service: General Internal Medicine Author Type: Physician Type: Progress Notes Filed: 11/28/2022 1:11 PM Note Text: INPATIENT PROGRESS NOTE Subjective CHIEF COMPLAINT: SOB and cough INTERVAL HPI: Feels better, no fever or chills, still with productive cough, sat 96 % on RA. Current Facility-Administered Medications Medication Dose Route Frequency NaCl 0.9% iv flush bag 20 mL INTRAVENOUS PRN enoxaparin 40 mg injection (LOVENOX) 40 mg SUBCUTANEOUS q 24 HR acetaminophen 650 mg tab(s) (TYLENOL) 650 mg ORAL q 6 H PRN ipratropium-albuterol 3 mL nebulizer solution (DUONEB) 3 mL INHALATION TID ipratropium-albuterol 3 mL nebulizer solution (DUONEB) 3 mL INHALATION q 6 H PRN busPIRone 10 mg tab(s) (BUSPAR) 10 mg ORAL BID topiramate 50 mg tab(s) (TOPAMAX) 50 mg ORAL DAILY hydrOXYchloroQUINE 200 mg tab(s) (PLAQUENIL) 200 mg ORAL BID QUEtiapine 50 mg tab(s) (SEROquel) 50 mg ORAL AT BEDTIME mometasone-formoterol 100-5 mcg/actuation 2 Puff inhaler (DULERA) 2 Puff INHALATION BID metoprolol tartrate (short acting) 25 mg tab(s) (LOPRESSOR) 25 mg ORAL BID montelukast 10 mg tab(s) (SINGULAIR) 10 mg ORAL AT BEDTIME furosemide 20 mg tab(s) (LASIX) 20 mg ORAL DAILY diclofenac (EC) 75 mg tab(s) (VOLTAREN) 75 mg ORAL BID clopidogrel 75 mg tab(s) (PLAVIX) 75 mg ORAL DAILY DULoxetine 60 mg cap(s) (CYMBALTA) 60 mg ORAL AT BEDTIME levothyroxine 100 mcg tab(s) (SYNTHROID) 100 mcg ORAL DAILY (6 AM) levoFLOXacin iv piggyback 750 mg in D5W 150 mL (LEVAQUIN) 750 mg INTRAVENOUS DAILY benzonatate 100 mg cap(s) (TESSALON PERLE) 100 mg ORAL TID Objective PHYSICAL EXAM: BP 120/59 Pulse 70 Temp (Src) 97.9 (Oral) Resp 18 Ht 4' 10 (1.47m) Wt 140 lb 10.5 oz (63.8kg) SpO2 95% BMI 29.40 kg/(m2). O2 Therapy: Room Air Physical Exam Performed GENERAL: Obese, Alert, No Distress SKIN: Pale with no rash NECK: No jugulovenous distention, Supple LUNGS: Diminished in the bases. CARDIAC: Normal S1 and S2; no rubs, murmurs, or gallops ABDOMEN: Abdomen soft, non-tender, BS normal, No masses or organomegaly EXTREMITIES: Trace edema DATA: Diagnostic tests reviewed for today's visit: Most recent labs and imaging results. Assessment/Plan Principal Problem: Pneumonia due to infectious organism (POA: Yes) Active Problems: Anemia (POA: Yes) Leukocytosis (POA: Yes) History of CVA (cerebrovascular accident) (POA: Yes) Plan of care: Continue Levaquin. Start IS and acapella. Start IV Iron. Continue breathing treatments. Resume home medication. Monitor LABS and clinical course. Possible home tomorrow. Medication and Non-Pharmacologic VTE Prophylaxis/Anticoagulants Anticoagulant AND Antiplatelet Medications (From admission, onward) Start Dose Route Frequency Last Action Ordered Stop 11/26/222099 enoxaparin 40 mg injection (LOVENOX) (Medical Risk Categories) 40 mg SUBCUTANEOUS EVERY 24 HOURS Given, 11/27 215611/26/222016 -- 11/26/222029 clopidogrel 75 mg tab(s) (PLAVIX) 75 mg ORAL DAILY Given, 11/28 82011/26/222016 -- 11/26/222029 activity - mobilize patient (in,oh) VTE Prophylaxis: VTE prophylaxis appropriate SIGNATURE: Paula Moss MD PATIENT NAME: Codi Blank [facility] 11-27-2022 Note HNO ID: [id number] Author: Ashwin Butler RPh Service: Pharmacy Author Type: Pharmacist Type: Plan of Care Filed: 11/27/2022 3:43 PM Note Text: PHARMACY MEDICATION REVIEW Patient Name: Codi Blank : 1955 The following medications were updated within the DESK EDITOR medication list: Medications ADDED to DESK EDITOR medication list Furosemide 40 mg every other day Albuterol inhaler 1-2 puffs q6h PRN Lorazepam 1 mg TID PRN Pregabalin 50 mg TID Fluconazole 200 mg once weekly Medications CHANGED on DESK EDITOR medication list Buspirone 10 mg BID, changed to BID PRN Duloxetine 30 mg TID, changed to 60 mg BID Hydroxyzine 50 mg TID PRN, changed to daily Levothyroxine 100 mcg daily, changed to 50 mcg daily Liothyronine 5 mcg daily, changed to 10 mcg daily Quetiapine 50 mg daily, changed to 200 mg daily Medications REMOVED from DESK EDITOR medication list Abaloparatide 80 mcg Atorvastatin 80 mg Bupropion 150 mg XL Spiriva Respimat 2.5 mcg Additional comments: Patient manages her own medications, but does not know the medication names, doses or frequencies. Verified medication list solely from fill history and records at the patient's pharmacies. Could not verify with the patient if she is actively taking her medications. Furosemide: Patient's fill history shows varying doses and directions for furosemide. Most recent script for furosemide was from [facility] mail order pharmacy. [facility] pharmacist reported furosemide 20 mg daily was ordered (last filled 10/29/22), with the direction to take with furosemide 40 mg tablet for a total of 60 mg daily. Furosemide 20 mg and 40 mg were historically ordered and filled for 1 tab every other day (both filled 09/24/22). Unclear exactly what dose of furosemide the patient is supposed to be taking. OTC medications that could not be verified: Acetaminophen, loratadine, melatonin The below information represents the best possible medication history: Yes Medication history completed by: Pharmacist: Patricia Andrade RPh Source of history: Pharmacy records: [facility] ([facility] and [facility] (mail order pharmacy) and [facility] records Medication nonadherence identified: Patient does not know her medications by name and cannot recall dose or frequency Reconciliation completed: Yes Completed by: Patricia Andrade Rph All DESK EDITOR medications addressed by LIP - messaged Dr. Moss to review med rec again Patient interested in Bedside Delivery Services or using [facility] Pharmacy at discharge? Unable to assess Preferred outpatient pharmacy: [facility]- [facility] [address] [place] [address] [address] [facility] [phone] [address] [facility] [place] [address] [address] [facility] [phone] Allergies: Adhesive Tape (Madisyn* Comment:REDNESS Biaxin [Clarithromy* Hives, Itching Comment:Patient states she has previously tolerated a Z-pack, but states they have to do it twice for it to work Ceclor [Cefaclor] Hives, Itching Comment: Doxycycline Hives,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 See encounter diagnoses * At least 50% of the visit was involved in the discussion of the options for treatment. We discussedexercises, medication, interventional therapies and surgery. Healthy life style is essential with patient hard work to achieve the wellness. In addition; discussion with the patient and/or family about any of the diagnostic results, impressions and/or recommended diagnostic studies, prognosis, risks and benefits of treatment options, instructions for treatment and/or follow-up, importance of compliance with chosen treatment options, risk-factor reduction, and patient/family education. * DC ketamine lidocaine nasal spray * Start baclofen 10 mg 3 times daily as needed * Cervical and thoracic spine x-ray * Continue IV infusion therapy once every 2 weeks * Weight control - Counseling given * Reinforced importance of regular program of improving strength and flexibility * Alternative chronic pain therapies was discussed, encouraged and information was handed * RTC 3 months * *Please note this report has been produced using speech recognition software and may contain errorsrelated to that system including grammar, punctuation and spelling as well as words and phrases that may be inappropriate. If there are questions or concerns, please feel free to contact me to clarify. [facility] [address] [address] [place] Work Phone: Instructions* Name Dates Details Instructions not documented [facility] Work Phone: Summary Purpose Family History No Family History Records Found Mother Name Dates Details Family history of (7 99.9, R99) Status:Active Father Name Dates Details Family history of myocardial infarction(V17.3, Z82.49) Status:Active Mother Name Dates Details Family history of (7 99.9, R99) Status:Active Father Name Dates Details Family history of myocardial infarction(V17.3, Z82.49) Status:Active Unknown Family Member Name Dates Details Family history of myocardial infarction: Father(V17.3, Z82.49) Status:Active : Mother Status:Active Unknown Family Member Name Dates Details Family history of myocardial infarction: Father(V17.3, Z82.49) Status:Active : Mother Status:Active Unknown Family Member Name Dates Details Family history of myocardial infarction: Father(V17.3, Z82.49) Status:Active : Mother Status:Active Unknown Family Member Name Dates Details Family history of myocardial infarction: Father(V17.3, Z82.49) Status:Active : Mother Status:Active Unknown Family Member Name Dates Details Family history of myocardial infarction: Father(V17.3, Z82.49) Status:Active : Mother Status:Active Unknown Family Member Name Dates Details Family history of myocardial infarction: Father(V17.3, Z82.49) Status:Active : Mother Status:Active Unknown Family Member Name Dates Details Family history of myocardial infarction: Father(V17.3, Z82.49) Status:Active : Mother Status:Active Unknown Family Member Name Dates Details Family history of myocardial infarction: Father(V17.3, Z82.49) Status:Active : Mother Status:Active Unknown Family Member Name Dates Details Family history of myocardial infarction: Father(V17.3, Z82.49) Status:Active : Mother Status:Active Unknown Family Member Name Dates Details Family history of myocardial infarction: Father(V17.3, Z82.49) Status:Active : Mother Status:Active Unknown Family Member Name Dates Details : Mother Status:Active Family history of myocardial infarction: Father(V17.3, Z82.49) Status:Active Unknown Family Member Name Dates Details Family history of myocardial infarction: Father(V17.3, Z82.49) Status:Active : Mother Status:Active Unknown Family Member Name Dates Details Family history of myocardial infarction: Father(V17.3, Z82.49) Status:Active : Mother Status:Active Unknown Family Member Name Dates Details Family history of myocardial infarction: Father(V17.3, Z82.49) Status:Active : Mother Status:Active Unknown Family Member Name Dates Details Family history of myocardial infarction: Father(V17.3, Z82.49) Status:Active : Mother Status:Active Advance Directives No Advanced Directives Records FoundNo Advanced Directives Records FoundNo Advanced Directives Records FoundNo Advanced Directives Records FoundNo Advanced Directives Records FoundNo Advanced Directives Records FoundNo Advanced Directives Records Found Chief Complaint * Patient Codi Blank. Patient verified by name and date. * 0/10 Pain was Prev in low back. * Last infusion:Last Thursday * % relief:100% still lasting * Recent Xray/MRI: * Surgical HX Has had spinal cord stimulator and Morphine pump in past, all removed. * ### smoker: 1/2 PPD * Pain therapy regimen: Pain infusions. * Patient Codi Blank. Patient verified by name and date. * 0/10 Pain was Prev in low back. * Last infusion:Last Thursday * % relief:100% still lasting * Recent Xray/MRI: * Surgical HX Has had spinal cord stimulator and Morphine pump in past, all removed. * ### smoker: 1/2 PPD * Pain therapy regimen: Pain infusions. * A telephone visit (audio only) between the patient (at the originating site) and the provider (at the distant site) was utilized to provide this telehealth service. * pt is complaining of pain in her low back. pt states that her pain level is a 2/10 on the pain scale. 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 pt has had 13 ketamine infusions and states overall she is receiving 90% relief. pt states she has had back surgery. * Patient Codi Blank. Patient verified by name and date. * 5/10 Pain to Low back into bilateral hips. * Pain infusion 09/13/2021 * % relief: 100% lasting 2 weeks. * Recent Xray/MRI:None new * ### smoker: 0.5 PPD * Pain therapy regimen: Ketamine nasal spray does not seem to help * Patient here to discuss that the infusions are not working as they did . * There 3-4 days and she is getting 90% then her pain comes right back . * She states her pain his in lower back , effecting the left hip * Patient here to discuss that the infusions are not working as they did . * There 3-4 days and she is getting 90% then her pain comes right back . * She states her pain his in lower back , effecting the left hip * Patient presented to Pain Management to follow up . * Verified patient by name and date of . * Patient had and injection on 01/27/2022 Left SI . Patient states that the injection gave them 100 % relief pain * Patient presented to Pain Management to follow up . * Verified patient by name and date of . * Patient here for a follow up . * She verbalized that she has pain everywhere . * States that the nasal ketamine spray is not helping her pain . * She states that the IV infusions help , she gets 100 % for three weeks . * She states she gets the iv infusion every two weeks . * Patient states that she had a fall three days ago , and has right sided rib pain and neck pain . * She has not been seen for this injury. Reason for Referral Specialty Diagnoses / Procedures Referred By Joyce loving Referred To Contact Radiology Diagnoses Postlaminectomy syndrome of lumbosacral region Chronic idiopathic pain syndrome Osteoporosis with current pathological fracture, unspecified osteoporosis type, sequela Osteoporosis Procedures XR DEXA bone density Vanna Hendricks MD [address] [facility] [place] [address] Referral ID Status Reason Start Date Expiration Date Visits Requested Visits Authorized [id number] Pending Review Perform Procedure 03/03/2023 03/02/2024 1 1 Additional Source Comments INFORMATION SOURCE (unrecogn ized section and content) DATE CREATED AUTHOR AUTHOR'S ORGANIZ ATION 03/02/2020 [facility] DATE CREATED AUTHOR AUTHOR'S ORGANIZ ATION 03/21/2022 [facility] DATE CREATED AUTHOR AUTHOR'S ORGANIZ ATION 12/05/2022 [facility] DATE CREATED AUTHOR AUTHOR'S ORGANIZ ATION 12/10/2022 [employer] DATE CREATED AUTHOR AUTHOR'S ORGANIZ ATION 01/18/2023 [facility] DATE CREATED AUTHOR AUTHOR'S ORGANIZ ATION 05/20/2023 [facility] Reason for Visit (unrecogniz ed section and content) Reason Comments Follow-up Patient here to disc uss the bone density test that was done and follow-up on IV infusion therapy. 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 This clinical summary was aggregated from multiple sources. Caution should be exercised in using it in the provision of clinical care. This summary normalizes information from multiple sources, and as a consequence, information in this document may materially change the coding, format and clinical context of patient data. In addition, data may be omitted in some cases. CLINICAL DECISIONS SHOULD BE BASED ON THE PRIMARY CLINICAL RECORDS. [employer] provides no warranty or guarantee of the accuracy or completeness of information in this document.
[2023-05-21 15:31] LABS: Absolute Lymphocyte Count 3.22 X10^3/uL (0.83-4.51); Absolute Neutrophil Count 5.8 X10^3/uL (2.0-7.7); Basophil# 0.06 X10^3/uL; Basophil% 0.6 % (0-1); Eosinophil# 0.27 X10^3/uL; Eosinophils% 2.6 % (0-5); Hematocrit 36.6 % (37-47); Hemoglobin 11.1 g/dL (12.0-15.0); Lymphocyte # 3.22 X10^3/ul (0.83-4.51); Lymphocyte % 31.3 % (19-41); Mean Corp Hgb Conc 30.3 g/dL (32-36); Mean Corpuscular Hgb 27.5 pg (27.0-32.0); Mean Corpuscular Volume 90.6 fL (81-99); Mean Platelet Vol. 10.3 fl (6.2-12.0); Monocyte# 0.94 X10^3/uL; Monocyte% 9.1 % (0-10); NRBC Flagged by Analyzer 0 % (0-5); Neutrophil # 5.78 X10^3/uL (2.7-7.7); Neutrophil % 56.2 % (47-70); Platelet Count 400 K/mm3 (150-450); RBC Distribution Width SD 56.9 fl (35.1-43.9); Red Blood Count 4.04 M/mm3 (4.2-5.4); White Blood Count 10.3 K/mm3 (4.4-11.0)
[2023-05-21 16:21] LABS: ALB/GLOB Ratio 0.9 RATIO (0.9-2.4); AST(SGOT) 23 U/L (15-37); Alanine Aminotransfer ALT/SGPT 33 U/L (13-56); Albumin, Serum 3.4 g/dL (3.2-5.0); Alkaline Phosphatase 87 U/L (45-117); Anion Gap 5 (5-15); BUN 30 mg/dL (7-18); BUN/Creat Ratio 27.5 RATIO (10-20); Calcium,Total 9.4 mg/dL (8.5-10.1); Chloride 104 mmol/L (98-107); Creatinine, Serum 1.09 mg/dL (0.55-1.02); EST Glomerular Filtration Rate 53 mL/min (>60); Est Glom Filt Rate - Afr Amer 64 mL/min (>60); Globulin 3.8 g/dL (2.2-4.2); Glucose 77 mg/dL (74-106); Potassium 4.2 mmol/L (3.5-5.1); Protein, Total 7.2 g/dL (6.4-8.2); Sodium Level 140 mmol/L (136-145)
[2023-05-21 16:23] LABS: Vitamin D,25 Hydroxy 14.3 ng/mL
== END | disposition home or self-care (01) ==
LOC: BFHLAB 11:58
PROVIDERS: PCP Family Medicine; Visit Provider Family Medicine
DX: E55.9 Vitamin D deficiency, unspecified (principal); M81.0 Age-related osteoporosis without current pathological fracture; D64.9 Anemia, unspecified; K92.2 Gastrointestinal hemorrhage, unspecified
CPT/HCPCS: 36415; 80053; 82306; 85025

== ENCOUNTER → 2023-06-01 | Outpatient (CLI) | payer MEDICARE, SELFPAY ==
--- OUTSIDE RECORDS SUMMARY | 2023-06-01 11:23 | XMS RPT_ITS | CCD ---
Author Name Unknown Address [address] [place] [address] Organization [facility] Care Team Providers Care Probate Lawyer Name Role Phone [facility] INFUSION ROOM 01, [id number] Unavaila ble Unavailable Malys, Chrystal A Unavailable Unavailable Tabbaa, Parveziba Unavailable Unavailable Tabbaa, Parveziba Unavailable Unavailable Malys, Chrystal A Unavailable Unavailable Unavailable Vanna Hendricks MD Unavailable Unavailable Unavailable Unavailable PAULA MOSS Attending Unavailable PAULA MOSS Admitting Unavailable MALYS, CHRYSTAL Navneet Primary Care Unavailable Tabbaa, Dr. Meeks Attending [...] Malys Chrystal GAMBOA Primary Care Provider [phone] Malys Chrystal GAMBOA Primary Care Provider [phone] SIMONS, BEAU T Referring Unavailable MALYS, CHRYSTAL MUHAMMAD Primary Care Unavailable MALYS, CHRYSTAL MUHAMMAD Primary Care Unavailable SIMONS, BEAU T Referring Unavailable TABBAGERALDINE TothTAIBA Attending Unavailable MALYS, CHRYSTAL MUHAMMAD Primary Care Unavailable SIMONS, BEAU T Referring Unavailable MALYS, CHRYSTAL SABINA Primary Care Unavailable SIMONS, BEAU T Referring Unavailable MALYS, CHRYSTAL MUHAMMAD Primary Care Unavailable TABBAA, KUTAIBA Referring Unavailable MALYS, CHRYSTAL MUHAMMAD Primary Care Unavailable SIMONS, BEAU T Referring Unavailable MALYS, CHRYSTAL MUHAMMAD Primary Care Unavailable TABBAA, KUTAIBA Attending Unavailable MALYS, CHRYSTAL SABINA Primary Care Unavailable SIMONS, BEAU T Referring Unavailable MALYS, CHRYSTAL SABINA Primary Care Unavailable Allergies Allergy Classification Reported Allergen(s) Allergy Type Date of Onset Reaction(s) Facility (20 sources) Adhesive Tape Allergy to substance (finding) [facility] [address] Work Phone: (20 sources) Clarithromycin; Translations: [Biaxin] Drug Allergy [facility] 1st Floor 1155 Work Phone: (20 sources) Doxycycline; Translations: [doxycycline] Drug Allergy 9 Hives, Itching [facility] (20 sources) Penicillins; Translations: [Penicillins] Allergy to drug (finding) 9 [facility] (20 sources) Sulfonamides (Antibiotic); Translations: [sulfa] Allergy to drug (finding) [facility] 1st Floor 1155 Work Phone: (18 sources) Cefaclor; Translations: [Ceclor] Drug Allergy [facility] Work Phone: (1 source) Adhesive Tape; Translations: [ADHESIVE TAPE (ROSINS)] Propensity to adverse reactions (disorder) 9 [facility] (4 sources) Cefaclor; Translations: [CEFACLOR] Drug Allergy 9 Hives, Itching [facility] (4 sources) Clarithromycin; Translations: [CLARITHROMYCIN] Drug Allergy 9 Hives, Itching [facility] (4 sources) Sulfonamides (Antibiotic); Translations: [SULFA (SULFONAMIDE ANTIBIOTICS)] Propensity to adverse reactions to drug (disorder) 9 Hives [facility] (3 sources) Adhesive agent; Translations: [ADHESIVE] Drug Intolerance 9 Hives [facility] (2 sources) Penicillins Drug Allergy 3 Hives, Itching [facility] Work Phone: (3 sources) Sulfamethoxazole ; Translations: [SULFAMETHOXAZOL E] Drug Allergy 3 Unknown, Itching, Nausea/vomitin g [facility] Work Phone: (3 sources) Adhesive Tape-Silicones; Translations: [ADHESIVE TAPE-SILICONES] Propensity to adverse reactions 3 Itching, Other [facility] Medications Current Medications Medication Drug Class(es) Dates Sig (Normalized) Sig (Original) acetaminophen 500 mg oral tablet (2 sources) Start: 02-15-2019 take 2 tablets by mouth four times daily acetaminophen (Tylenol) 500 mg tablet Take 2 tablets (1,000 mg) by mouth 4 times a day. 0 02/15/2019 Active [id number] 200 actuat albuterol 0.09 mg/actuat metered dose [...] 144.8 cm Vanna Hendricks MD Work Phone: [facility] 05-19-2023 08:34-0500 Body mass index (BMI) [Ratio] 30.08 kg/m2 Vanna Hendricks MD Work Phone: [facility] 05-19-2023 08:34-0500 Body temperature 96.3 [degF] Vanna Hendricks MD Work Phone: [facility] 05-19-2023 08:34-0500 Body weight 63.05 kg Vanna Hendricks MD Work Phone: [facility] 05-19-2023 08:34-0500 Diastolic blood pressure 58 mm[Hg] Vanna Hendricks MD Work Phone: [facility] 05-19-2023 08:34-0500 Heart rate 65 /min Vanna Hendricks MD Work Phone: [facility] 05-19-2023 08:34-0500 Respiratory rate 16 /min Vanna Hendricks MD Work Phone: [facility] 05-19-2023 08:34-0500 Systolic blood pressure 109 mm[Hg] Vanna Hendricks MD Work Phone: [facility] 03-03-2023 07:56-0500 Body temperature 97.9 [degF] Vanna Hendricks MD Work Phone: [facility] 03-03-2023 07:56-0500 Diastolic blood pressure 61 mm[Hg] Vanna Hendricks MD Work Phone: [facility] 03-03-2023 07:56-0500 Heart rate 66 /min Vanna Hendricsk MD Work Phone: [facility] 03-03-2023 07:56-0500 Respiratory rate 16 /min Vanna Hendricks MD Work Phone: [facility] 03-03-2023 07:56-0500 SaO2% (BldA) [Mass fraction] 91 % Vanna Hendricks MD Work Phone: [facility] 03-03-2023 07:56-0500 Systolic blood pressure 113 mm[Hg] Vanna Hendricks MD Work Phone: [facility] 12-09-2022 08:12-0400 Body temperature 97.16 [degF] Chrystal Michel Work Phone: [facility] [place] Work Phone: 12-09-2022 08:12-0400 Diastolic blood pressure 56 mm[Hg] Chrystal EastmanRollerscoot Work Phone: [facility] [place] Work Phone: 12-09-2022 08:12-0400 Heart rate 66 /min Chrystal Michel Work Phone: [facility] [place] Work Phone: 12-09-2022 08:12-0400 Respiratory rate 18 /min Chrystal EastmanRollerscoot Work Phone: [facility] [place] Work Phone: 12-09-2022 08:12-0400 SaO2% (BldA) [Mass fraction] 95 % Chrystla EastmanRollerscoot Work Phone: [facility] [place] Work Phone: 12-09-2022 08:12-0400 Systolic blood pressure 91 mm[Hg] Chrystal EastmanRollerscoot Work Phone: [facility] [place] Work Phone: 03-11-2022 08:19-0500 Body height 149.86 cm Chrystal Michel Work Phone: [facility] [place] Work Phone: 03-11-2022 08:19-0500 Body mass index (BMI) [Ratio] 30.3 kg/m2 Chrystal EastmanRollerscoot Work Phone: [facility] [place] Work Phone: 03-11-2022 08:19-0500 Body surface area Derived from formula 1.63 m2 Chrystal Michel Work Phone: [facility] [place] Work Phone: 03-11-2022 08:19-0500 Body temperature 97.52 [degF] Chrystal EastmanRollerscoot Work Phone: [facility] [place] Work Phone: 03-11-2022 08:19-0500 Body weight 68.04 kg Chrystal Michel Work Phone: [facility] [place] Work Phone: 03-11-2022 08:19-0500 Diastolic blood pressure 59 mm[Hg] Chrystal EastmanRollerscoot Work Phone: [facility] [place] Work Phone: 03-11-2022 08:19-0500 Heart rate 71 /min Chrystal EastmanRollerscoot Work Phone: [facility] [place] Work Phone: 03-11-2022 08:19-0500 Respiratory rate 18 /min Chrystal Michel Work Phone: [facility] [place] Work Phone: 03-11-2022 08:19-0500 SaO2% (BldA) [Mass fraction] 93 % Chrystal EastmanRollerscoot Work Phone: [facility] [place] Work Phone: 03-11-2022 08:19-0500 Systolic blood pressure 100 mm[Hg] Chrystal EastmanRollerscoot Work Phone: [facility] [place] Work Phone: 01-03-2022 08:12-0400 Body height 149.86 cm Chrystal Michel Work Phone: [facility] [place] Work Phone: 01-03-2022 08:12-0400 Body mass index (BMI) [Ratio] 30.3 kg/m2 Chrystal [employer]oth [employer] Work Phone: [facility] [place] Work Phone: 01-03-2022 08:12-0400 Body surface area Derived from formula 1.63 m2 Chrystal Toth [employer] Work Phone: [facility] [place] Work Phone: 01-03-2022 08:12-0400 Body temperature 96.98 [degF] Chrystal [employer]oth [employer] Work Phone: [facility] [place] Work Phone: 01-03-2022 08:12-0400 Body weight 68.04 kg Chrystal Toth [employer] Work Phone: [facility] [place] Work Phone: 01-03-2022 08:12-0400 Diastolic blood pressure 74 mm[Hg] Chrystal Toth [employer] Work Phone: [facility] [place] Work Phone: 01-03-2022 08:12-0400 Heart rate 69 /min Chrystal Toth [employer] Work Phone: [facility] [place] Work Phone: 01-03-2022 08:12-0400 Respiratory rate 18 /min Chrystal Toth [employer] Work Phone: [facility] [place] Work Phone: 01-03-2022 08:12-0400 SaO2% (BldA) [Mass fraction] 94 % Chrystal Toth [employer] Work Phone: [facility] [place] Work Phone: 01-03-2022 08:12-0400 Systolic blood pressure 107 mm[Hg] Chrystal Michel Work Phone: [facility] [place] Work Phone: [...] 08:05-0400 Systolic blood pressure 109 mm[Hg] Chrystal Navneet Michel Work Phone: [facility] Work Phone: 04-30-2021 09:05-0500 Body height 149.86 cm Chrystal Navneet Eastmanys Work Phone: [facility] Work Phone: 04-30-2021 09:05-0500 Body mass index (BMI) [Ratio] 27.27 kg/m2 Chrystal A Malys Work Phone: [facility] Work Phone: 04-30-2021 09:05-0500 Body surface area Derived from formula 1.56 m2 Chrystal Navneet Eastmanys Work Phone: [facility] Work Phone: 04-30-2021 09:05-0500 Body weight 61.24 kg Chrystal Navneet Eastmanys Work Phone: [facility] Work Phone: 02-21-2021 09:39-0400 Body height 147.32 cm Chrystal Eastmanys Work Phone: [facility] Work Phone: 02-21-2021 09:39-0400 Body mass index (BMI) [Ratio] 28.01 kg/m2 Chrystal Eastmanys Work Phone: [facility] Work Phone: 02-21-2021 09:39-0400 Body surface area Derived from formula 1.54 m2 Chrystal Navneet Eastmanys Work Phone: [facility] Work Phone: 02-21-2021 09:39-0400 Body temperature 36 [degF] Chrystal Eastmanys Work Phone: [facility] Work Phone: 02-21-2021 09:39-0400 Body weight 60.78 kg Chrystal Eastmanys Work Phone: [facility] Work Phone: 02-21-2021 09:39-0400 Heart rate 77 /min Chrystal Navneet Eastmanys Work Phone: [facility] Work Phone: 02-21-2021 09:39-0400 Respiratory rate 18 /min Chrystal Navneet Eastmanys Work Phone: [facility] Work Phone: 02-21-2021 09:39-0400 SaO2% (BldA) [Mass fraction] 95 % Chrystal A Malys Work Phone: [facility] Work Phone: 02-07-2020 11:00-0400 BMI (Body Mass Index) 28.84 kg/m2 Kutaiba Tabbaa [facility] Work Phone: 02-07-2020 11:00-0400 Body Temperature 35.6 [degF] Kutaiba Tabbaa [facility] Work Phone: 02-07-2020 11:00-0400 Body weight 62.6 kg Kutaiba Tabbaa [facility] Work Phone: 02-07-2020 11:00-0400 BP Diastolic 65 mm[Hg] Kutaiba Tabbaa [facility] Work Phone: 02-07-2020 11:00-0400 BP Systolic 127 mm[Hg] Kutaiba Tabbaa [facility] Work Phone: 02-07-2020 11:00-0400 BSA (Body Surface Area) 1.56 m2 Kutaiba Tabbaa [facility] Work Phone: 02-07-2020 11:00-0400 Height 147.32 cm Kutaiba Tabbaa [facility] Work Phone: 02-07-2020 11:00-0400 Pulse (Heart Rate) 68 /min Kutaiba Tabbaa [facility] Work Phone: 02-07-2020 11:00-0400 Pulse Oximetry 99 % Kutaiba Tabbaa [facility] Work Phone: 02-07-2020 11:00-0400 Respiratory Rate 18 /min Kutaiba Tabbaa [facility] Work Phone: 01-10-2020 11:13-0400 Body Temperature 36.2 [degF] [id number] [facility] INF[facility] ROOM 01 [facility] [address] Work Phone: 01-10-2020 11:13-0400 BP Diastolic 68 mm[Hg] [id number] [facility] INF[facility] ROOM 01 FY-Opggwfrray-Ekqke r [address]st [address] 1155 Work Phone: 01-10-2020 11:13-0400 BP Systolic 114 mm[Hg] [id number] [facility] INF[facility] ROOM 01 ZS-Hkfdbepjxj-Grvcd r [address]st [address] 1155 Work Phone: 01-10-2020 11:13-0400 Pulse (Heart Rate) 70 /min [id number] [facility] INF[facility] ROOM 01 RP-Jlafvhzssc-Ivibx r [address]st [address] 1155 Work Phone: 01-10-2020 11:13-0400 Pulse Oximetry 94 % [id number] [facility] INFUS[facility] ROOM 01 JF-Uvzauyiwlb-Ntnli r 1st Floor 1155 Work Phone: 01-10-2020 11:13-0400 Respiratory Rate 18 /min [id number] [facility] INFUSION ROOM 01 PC-Dazbgvrypy-Rsalu r 1st [address] 1155 Work Phone: Encounters Encounter Date Encounter Type Care Provider Facility Start: 05-26-2023 End: 05-27-2023 ambulatory ALEXANDREA Loving [facility] Start: 05-19-2023 End: 05-20-2023 ambulatory VANNA HENDRICKS [facility] Start: 05-19-2023 End: 05-19-2023 Office outpatient visit 25 minutes Vanna Hendricks MD Work Phone: [facility] Procedures Date Procedure Procedure Detail Performing Clinician Start: 05-26-2023 TREATMENT CONDITIONS 2 ALEXANDREA SIMONS Start: 05-26-2023 ONCBCN INFUSION APPOINTMENT REQUEST ALEXANDREA SIMONS Start: 05-12-2023 TREATMENT CONDITIONS 2 ALEXANDREA SIMONS Start: 04-18-2023 DEXA BONE DENSITY BEAU SIMONS Start: 04-03-2023 PULSE OXIMETRY, CONTINUOUS BEAU SIMONS Start: 04-03-2023 TREATMENT CONDITIONS 2 BEAU SIMONS Start: 03-16-2023 TREATMENT CONDITIONS 2 BEAU SIMONS Start: 02-26-2023 TREATMENT CONDITIONS 2 BEAU SIMONS Start: 02-10-2023 TREATMENT CONDITIONS 2 BEAU SIMONS 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 Chrystal A Malys Work Phone: Cholecystectomy Chrystal A Malys Work Phone: Decompression of med herbert nerve Chrystal A Malys Work Phone: Excision of bunion Chrystal Navneet Ma richie Work Phone: History of placement of stent for coronary artery disease H/O heart artery stent Chrystal Navneet Malangus Work Phone: Plan of Treatment Date Care Activity Detail Author Start: 04-18-2025 Screening for osteoporosis Bone Density Scan [facility] Start: 06-24-2023 End: 06-24-2023 Patient encounter procedure 06/24/2023 8:00 AM EST Infusion [facility] [address] [place] [address] [facility] Start: 06-10-2023 End: 06-10-2023 Patient encounter procedure 06/10/2023 8:00 AM EST Infusion [facility] [address] [place] [address] [facility] Start: 05-26-2023 End: 05-26-2023 Patient encounter procedure 05/26/2023 8:30 AM EST Infusion [facility] [address] [place] [address] [facility] Start: 05-05-2023 COVID-19 Vaccine (4 - Pfizer series) COVID-19 Vaccine (4 - Pfizer series) [facility] Start: 04-18-2023 End: 04-18-2023 Professional / ancillary services management 04/18/2023 8:30 AM EST Ancillary Procedure [facility] [address] [place] [address] [facility] Start: 04-03-2023 End: 04-03-2023 Patient encounter procedure 04/03/2023 7:30 AM EST Infusion [facility] [address] [place] [address] [facility] Start: 03-27-2023 Medicare Annual Wellness Visit Medicare Annual Wellness Visit (AWV) [facility] Start: 03-16-2023 End: 03-16-2023 Patient encounter procedure 03/16/2023 7:30 AM EST Infusion [facility] [address] [place] [address] [facility] Start: 03-03-2023 End: 03-03-2024 DXA Skeletal system Views for bone density XR DEXA bone density Imaging Routine Postlaminectomy syndrome of lumbosacral region Chronic idiopathic pain syndrome Osteoporosis with current pathological fracture, unspecified osteoporosis type, sequela Osteoporosis Expected: 03/03/2023 (Approximate), Expires: 03/03/2024 [facility] Service Area Work Phone: Immunizations Immunization Date Immunization Notes Care Provider Fa julisa 07-07-2022 Pneumococcal conjuga te vaccine, 20-valent (PREVNAR 20) Vanna Hendricks MD Work Phone: [facility] Work Phone: 01-23-2022 Pfizer COVID-19 vacc ine, bivalent, age 12 years and older (30 mcg/0.3 mL) Vanna Hendricks MD Work Phone: [facility] Work Phone: 01-16-2022 Influenza, Seasonal, Quadrivalent, Adjuvanted Vanna Hendricks MD Work Phone: [facility] Work Phone: 01-16-2022 influenza virus vacc ine, unspecified formulation Vanna Hendricks MD Work Phone: [facility] Work Phone: 06-23-2022 Pfizer Leiva Cap SARS-CoV-2 Vanna Hendricks MD Work Phone: [facility] Work Phone: 01-24-2015 influenza, seasonal, injectable Vanna Hendricks MD Work Phone: [facility] Work Phone: 01-24-2015 zoster vaccine, live Vanna Hendricks MD Work Phone: [facility] Work Phone: 04-27-2014 pneumococcal polysaccharide vaccine, 23 valent Vanna Hendricks MD Work Phone: [facility] Work Phone: Payers Date Payer Category Payer Private Health Insurance [facility] [id number] 2022-Present [address] [place] [address] [id number] 2022 Medicare [id number] 1955 Unknown [id number] 2.16.840.1.650260.3.579.2. 1045 1955 Unknown [id number] 2.16.840.1.481393.3.579.2. 1045 1955 Unknown [id number] 2.16.840.1.597984.3.579.2. 1045 1955 Unknown [id number] 2.16.840.1.559975.3.579.2. 1045 1955 Unknown [id number] 2.16.840.1.067311.3.579.2. 1045 1955 Unknown [id number] 2.16.840.1.363537.3.579.2. 1045 1955 Unknown [id number] 2.16.840.1.891994.3.579.2. 1045 1955 Unknown [id number] 2.16.840.1.027075.3.579.2. 1045 1955 Unknown [id number] 2.16.840.1.884758.3.579.2. 1045 1955 Unknown [id number] 2.16.840.1.036924.3.579.2. 1045 1955 Unknown [id number] 2.16.840.1.530266.3.579.2. 1045 1955 Unknown [id number] 2.16.840.1.688036.3.579.2. 1045 1955 Unknown [id number] 2.16.840.1.229676.3.579.2. 1045 1955 Unknown [id number] 2.16.840.1.947097.3.579.2. 1045 1955 Unknown [id number] 2.16.840.1.126052.3.579.2. 1045 1955 Unknown [id number] 2.16.840.1.794868.3.579.2. 1045 1955 Unknown [id number] 2.16.840.1.675156.3.579.2. 1045 1955 Unknown [id number] 2.16.840.1.612544.3.579.2. 1045 1955 Unknown [id number] 2.16.840.1.219232.3.579.2. 1045 1955 Unknown [id number] 2.16.840.1.896115.3.579.2. 1045 1955 Unknown [id number] 2.16.840.1.247494.3.579.2. 1045 1955 Unknown [id number] 2.16.840.1.356247.3.579.2. 1246 1955 Unknown [id number] 2.16.840.1.553542.3.579.2. 1247 1955 Unknown [id number] 2.16.840.1.898952.3.579.2. 1247 1955 Unknown [id number] 2.16.840.1.853325.3.579.2. 1247 1955 Unknown [id number] 2.16.840.1.825087.3.579.2. 7 1955 Unknown [id number] 2.16.840.1.755145.3.579.2. 7 1955 Unknown [id number] 2.16.840.1.339170.3.579.2. 7 1955 Unknown [id number] 2.16.840.1.485726.3.579.2. 7 1955 Unknown [id number] 2.16.840.1.559077.3.579.2. 1247 Private Health Insurance 101 [id number] Unknown Social History Date Type Detail Facility - - [facility] Work Phone: Start: 03-03-2023 End: 05-19-2023 Current every day smoker Current every day smoker [facility] Work Phone: Start: 02-10-2023 [facility] sm[facility] Work Phone: End: 04-17-2023 History of tobacco use Cigarette Smoker [facility] Work Phone: Start: 02-10-2023 End: 05-19-2023 Tobacco use and exposure Smokeless tobacco non-user [facility] Work Phone: Start: 03-03-2023 End: 05-19-2023 Alcohol intake Ex-drinker (finding) [facility] Work Phone: Start: 03-03-2023 End: 05-19-2023 Tobacco use panel [facility] Work Phone: Start: 1955 Sex Assigned At Not on file U [facility] Work Phone: Start: 02-21-2023 End: 05-19-2023 Exposure to SARS-CoV-2 (event) Not sure [facility] Start: 05-19-2023 Tobacco smoking stat us [facility] Ex-smoker [facility] Work Phone: End: 04-17-2023 History of tobacco use Current smoker [facility] Work Phone: History of tobacco use Passive smoker [facility] Work Phone: How often to you hav e a drink containing alcohol? Never [facility] Work Phone: How many standard drinks containing alcohol do you have on a typical day? Patient does not drink [facility] Work Phone: Functional Status Date Assessment Result [...] new lab work since she goes to [facility]. She would like to continue with her IV infusion therapy since her major admissions to the hospital increase her pain significantly. We discussed also her bone density and she has global security architect she is going to discuss that with [...] pregabalin 50 mg 3 times daily from md OPIOID RISK ASSESSMENT SCORE 06/22 Work/Pending law [...] soft. Musculoskeletal: General: Tenderness present. 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 Skin: General: Skin is [...] IV infusion therapy Patient to contact her global security architect to discuss her osteoporosis therapy Healthy lifestyle [...] IV infusion therapy documented in this encounter [facility] Work Phone: 03-03-2023 History of Present illness [...] pregabalin 50 mg, she usually gets caudal RT to help her with the pain around [...] pregabalin 50 mg 3 times daily from md OPIOID RISK ASSESSMENT SCORE 2/ Work/Pending law suits: On disability Social History: [...] Assessment Score 05/22 documented in this encounter [facility] Work Phone: 11-28-2022 Note HNO ID: [id number] Author: Paula Moss MD Service: General Internal [...] 82011/26/222016 -- 11/26/222029 activity - mobilize patient (ak,oh) VTE Prophylaxis: VTE prophylaxis appropriate SIGNATURE: Paula Moss MD PATIENT NAME: Codi Blank [facility] 11-27-2022 Note HNO ID: [id number] Author: Ashwin Butler RPh Service: Pharmacy Author Type: Pharmacist Type: Plan of Care Filed: 11/27/2022 3:43 PM Note Text: PHARMACY MEDICATION REVIEW Patient Name: Codi Blank : 1955 The following medications were updated within the STRUCT[facility] medication list: Medications ADDED to [facility] medication list Furosemide 40 mg every other day Albuterol inhaler 1-2 puffs q6h PRN Lorazepam 1 mg TID PRN Pregabalin 50 mg TID Fluconazole 200 mg once weekly Medications CHANGED on [facility] medication list Buspirone 10 mg BID, changed to BID PRN Duloxetine 30 mg TID, changed to 60 mg BID Hydroxyzine 50 mg TID PRN, changed to daily Levothyroxine 100 mcg daily, changed to 50 mcg daily Liothyronine 5 mcg daily, changed to 10 mcg daily Quetiapine 50 mg daily, changed to 200 mg daily Medications REMOVED from [facility] medication list Abaloparatide 80 mcg Atorvastatin 80 [...] RPh Source of history: Pharmacy records: [facility] and [facility] (mail order pharmacy) and [facility] records Medication nonadherence identified: Patient does not know her medications by name and cannot recall dose or frequency Reconciliation completed: Yes Completed by: Patricia Andrade Rph All [facility]IGGER medications addressed by LIP - messaged Dr. Moss to review med rec again Patient interested in [facility] or using [facility] at discharge? Unable to assess Preferred outpatient pharmacy: e- [facility] [address] [place] [id number] [phone] [facility] [phone] [facility] [place] [address] [address] [facility] [phone] Allergies: Adhesive Tape (Madisyn* Comment:REDNESS Biaxin [Clarithromy* [...] tablet Yes No (more content not included)... [facility] 01-27-2022 Note Pre-procedure Verifi cation and Time Out: Pre-Procedure Verification and Time Out: Procedure Locationprocedure area HUDDLE - Pre-procedure Verificationcompleted TIME OUT - Final Verificationcompleted immediately prior to procedure start DEBRIEFcompleted General Information: Anesthesia Critical Care: Non-Anesthesia Date/Time of Procedure: 27-Jan-2022 08:22 Post-Procedure Diagnosis: Same Procedure Name: Lumbar radiculopathy, lumbar postlaminectomy syndrome Findings: grossly normal anatomy Procedure performed by: Landfill Grader(s): none Estimated Blood Loss (mL): none Specimen: [...] Last Updated: 27-Jan-2022 08:23 by Vanna Hendricks) [facility] 04-30-2021 History of Present illness Narrative I have personally reviewed the OARRS report for CODI ROSAMARIA. I have considered the risks of abuse, dependence, addiction and diversion.I have the following concerns: 04/30/21.SUBJECTIVE:This is 65 year year old female. This is a virtual visit with Codi who is really doing great with her IV infusion therapy. The patient had tried in the past physical therapy and respiratory care specialist and because of her wheelchair dependency physical therapy did not help her much and she is not really interested in respiratory care specialist. At least we are giving her great pain relief with the IV infusion therapy at this time. The patient already scheduled for her further appointment. No refill needed today. The patient went to [facility] respiratory care specialist and they told her they can do [...] able to function and play with her vswlf-rfcydosg-vkoi-old she put him on her wheelchair and [...] the IV infusion therapy in combination with [facility] integrative program and evaluation by Dr. Felder for [...] feel free to contact me to clarify. [facility] Work Phone: 02-21-2021 History of [...] able to function and play with her pwrow-bdpijwii-awlk-old she put him on her wheelchair and [...] the IV infusion therapy in combination with [facility] integrative program and evaluation by Dr. Felder for [...] feel free to contact me to clarify. [facility] Work Phone: documented in this encounter [facility] Work Phone: Evaluation note* Diagnosis Secondary fibromyalgia- Primary Unspecified myalgia and myositis Postlaminectomy syndrome of lumbosacral region documented in this encounter [facility] Work Phone: History of Present illness Narrative* [...] able to function and play with her zdvgd-twibwolp-ukin-old she put him on her wheelchair and [...] feel free to contact me to clarify. 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 At least we are giving her great pain relief with the IV infusion therapy at this time. The patient already scheduled for her further appointment. No refill needed today. The patient went to [facility] respiratory care specialist and they told her they can do [...] able to function and play with her ynfod-pemwugzw-klhg-old she put him on her wheelchair and [...] feel free to contact me to clarify. 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 At least we are giving her great pain relief with the IV infusion therapy at this time. The patient already scheduled for her further appointment. No refill needed today. The patient went to [facility] respiratory care specialist and they told her they can do [...] able to function and play with her tqrmm-cfxgopcj-yoyk-old she put him on her wheelchair and [...] free to contact me to clarify. 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 At least we are giving her great pain relief with the IV infusion therapy at this time. The patient already scheduled for her further appointment. No refill needed today. The patient went to [facility] respiratory care specialist and they told her they can do [...] able to function and play with her niage-replvmrx-vufx-old she put him on her wheelchair and [...] feel free to contact me to clarify. 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 At least we are giving her great pain relief with the IV infusion therapy at this time. The patient already scheduled for her further appointment. No refill needed today. The patient went to [facility] respiratory care specialist and they told her they can do [...] able to function and play with her khvmn-kmhjkcog-fvnl-old she put him on her wheelchair and [...] from from Chrystal Michel and ketamine from md * OPIOID RISK ASSESSMENT SCORE 2/ * Pending law suits: On disability * [...] free to contact me to clarify. [facility] [place] Work Phone: [...] gradually to 3 times a day. Her global security architect wants to start her on methotrexate or [...] pregabalin 50 mg 3 times daily from md * OPIOID RISK ASSESSMENT SCORE 06/22 * [...] free to contact me to clarify. [facility] [place] Work Phone: Instructions* Name Dates Details Instructions not documented [facility] Work Phone: Summary Purpose Family [...] DEXA bone density Vanna Hendricks MD [address] [facility] [place] [address] Referral ID Status Reason Start Date Expiration Date Visits Requested Visits Authorized [id number] Pending Review Perform Procedure 03/03/2023 03/02/2024 1 1 Additional Source Comments INFORMATION SOURCE (unrecogn ized section and content) DATE CREATED AUTHOR AUTHOR'S ORGANIZ ATION 03/02/2020 [facility] DATE CREATED AUTHOR AUTHOR'S ORGANIZ ATION 03/21/2022 [facility] DATE CREATED AUTHOR AUTHOR'S ORGANIZ ATION 12/05/2022 [facility] DATE CREATED AUTHOR AUTHOR'S ORGANIZ ATION 12/10/2022 [facility] DATE CREATED AUTHOR AUTHOR'S ORGANIZ ATION 01/18/2023 [facility] DATE CREATED AUTHOR AUTHOR'S ORGANIZ ATION 05/31/2023 [facility] Reason for Visit (unrecogniz ed section and content) Reason Comments Follow-up Patient here to disc uss the bone density test that was done and follow-up on IV infusion therapy. Care Teams (unrecognized sec tion and content) Probate Lawyer Relationship Specialty Start Date End Date Chrystal Michel DO [address] [facility] [place] [id number] PCP - General Family Medicine 04/18/23 FOR [...] BE BASED ON THE PRIMARY CLINICAL RECORDS. [facility]. provides no warranty or guarantee of the accuracy or completeness of information in this document.
[2023-06-01 12:07] LABS: Absolute Neutrophil Count 6.9 X10^3/uL (2.0-7.7); Basophil# 0.04 X10^3/uL; Basophil% 0.4 % (0-1); Eosinophil# 0.15 X10^3/uL; Eosinophils% 1.4 % (0-5); Hematocrit 35.5 % (37-47); Hemoglobin 11.1 g/dL (12.0-15.0); Lymphocyte % 25.3 % (19-41); Mean Corp Hgb Conc 31.3 g/dL (32-36); Mean Corpuscular Hgb 27.7 pg (27.0-32.0); Mean Corpuscular Volume 88.5 fL (81-99); Mean Platelet Vol. 9.7 fl (6.2-12.0); Monocyte# 0.82 X10^3/uL; Monocyte% 7.7 % (0-10); NRBC Flagged by Analyzer 0 % (0-5); Neutrophil # 6.93 X10^3/uL (2.7-7.7); Neutrophil % 64.8 % (47-70); Platelet Count 420 K/mm3 (150-450); RBC Distribution Width CV 16.2 % (11.6-14.6); RBC Distribution Width SD 51.8 fl (35.1-43.9); Red Blood Count 4.01 M/mm3 (4.2-5.4); White Blood Count 10.7 K/mm3 (4.4-11.0)
[2023-06-01 13:04] LABS: ALB/GLOB Ratio 0.9 RATIO (0.9-2.4); AST(SGOT) 8 U/L (15-37); Alanine Aminotransfer ALT/SGPT 19 U/L (13-56); Albumin, Serum 3.5 g/dL (3.2-5.0); Alkaline Phosphatase 98 U/L (45-117); Anion Gap 4 (5-15); BUN 25 mg/dL (7-18); BUN/Creat Ratio 21.6 RATIO (10-20); Calcium,Total 9.1 mg/dL (8.5-10.1); Chloride 102 mmol/L (98-107); Creatinine, Serum 1.16 mg/dL (0.55-1.02); EST Glomerular Filtration Rate 49 mL/min (>60); Est Glom Filt Rate - Afr Amer 60 mL/min (>60); Glucose 81 mg/dL (74-106); Potassium 3.6 mmol/L (3.5-5.1); Protein, Total 7.5 g/dL (6.4-8.2); Sodium Level 135 mmol/L (136-145)
== END | disposition home or self-care (01) ==
PROVIDERS: PCP Family Medicine; Referring Provider Internal Medicine Rheumatology; Visit Provider Internal Medicine Rheumatology
DX: M06.4 Inflammatory polyarthropathy (principal); M79.7 Fibromyalgia; Z79.899 Other long term (current) drug therapy
CPT/HCPCS: 36415; 80053; 85025

== ENCOUNTER → 2023-07-13 | Outpatient (CLI) | payer MEDICARE, SELFPAY ==
[2023-07-13 12:23] LABS: Absolute Lymphocyte Count 2.34 X10^3/uL (0.83-4.51); Absolute Neutrophil Count 10.3 X10^3/uL (2.0-7.7); Basophil# 0.06 X10^3/uL; Basophil% 0.4 % (0-1); Eosinophil# 0.19 X10^3/uL; Eosinophils% 1.3 % (0-5); Hematocrit 33.1 % (37-47); Hemoglobin 10.3 g/dL (12.0-15.0); Lymphocyte # 2.34 X10^3/ul (0.83-4.51); Lymphocyte % 16.3 % (19-41); Mean Corp Hgb Conc 31.1 g/dL (32-36); Mean Corpuscular Hgb 28.1 pg (27.0-32.0); Mean Corpuscular Volume 90.2 fL (81-99); Monocyte# 1.42 X10^3/uL; Monocyte% 9.9 % (0-10); NRBC Flagged by Analyzer 0 % (0-5); Neutrophil # 10.26 X10^3/uL (2.7-7.7); Neutrophil % 71.7 % (47-70); Platelet Count 339 K/mm3 (150-450); RBC Distribution Width CV 15.8 % (11.6-14.6); RBC Distribution Width SD 51.8 fl (35.1-43.9); Red Blood Count 3.67 M/mm3 (4.2-5.4); White Blood Count 14.3 K/mm3 (4.4-11.0)
[2023-07-13 12:57] LABS: ALB/GLOB Ratio 0.7 RATIO (0.9-2.4); AST(SGOT) 18 U/L (15-37); Alanine Aminotransfer ALT/SGPT 15 U/L (13-56); Albumin, Serum 2.6 g/dL (3.2-5.0); Alkaline Phosphatase 66 U/L (45-117); Anion Gap 6 (5-15); BUN 43 mg/dL (7-18); BUN/Creat Ratio 30.7 RATIO (10-20); Calcium,Total 8.2 mg/dL (8.5-10.1); Chloride 106 mmol/L (98-107); Cholesterol 81 mg/dL (200); EST Glomerular Filtration Rate 40 mL/min (>60); Est Glom Filt Rate - Afr Amer 48 mL/min (>60); Free T3 0.9 pg/mL (2.18-3.98); Globulin 3.9 g/dL (2.2-4.2); Glucose 103 mg/dL (74-106); High Density Lipoprotein 30 mg/dL; Protein, Total 6.5 g/dL (6.4-8.2); Sodium Level 138 mmol/L (136-145); T4 Free Direct 0.71 ng/dL (0.76-1.46); Thyroid Stim Hormone (TSH) 1.48 uIU/mL (0.358-3.74); Triglycerides 114 mg/dL; Very Low Density Lipoprotein 23 mg/dL (5-40)
== END | disposition home or self-care (01) ==
PROVIDERS: PCP Family Medicine; Referring Provider Family Medicine; Visit Provider Family Medicine
DX: E03.9 Hypothyroidism, unspecified (principal); Z51.81 Encounter for therapeutic drug level monitoring; E78.5 Hyperlipidemia, unspecified
CPT/HCPCS: 36415; 80053; 80061; 84439; 84443; 84481; 85025

== ENCOUNTER 2023-08-07 08:50 | Outpatient (CLI) | payer MEDICARE, SELFPAY ==
[2023-08-07 09:40] VITALS: BP 74/40; PULSE 57; RESP 16; TEMP 36.1; O2SAT 94; BMI 28.0
[2023-08-07] MEDS: DENOSUMAB 60 MG/ML SC (09:43)
== END 2023-08-07 08:51 | disposition home or self-care (01) ==
LOC: MEDOUTP 08:53
PROVIDERS: PCP Family Medicine; Referring Provider Family Medicine; Visit Provider Family Medicine
DX: M81.0 Age-related osteoporosis without current pathological fracture (principal)
CPT/HCPCS: 96372; J0897

== ENCOUNTER → 2023-08-31 | Outpatient (CLI) | payer MEDICARE, SELFPAY ==
[2023-08-31 17:30] LABS: Absolute Lymphocyte Count 2.49 X10^3/uL (0.83-4.51); Basophil# 0.07 X10^3/uL; Basophil% 0.6 % (0-1); Eosinophil# 0.36 X10^3/uL; Eosinophils% 3.3 % (0-5); Lymphocyte # 2.49 X10^3/ul (0.83-4.51); Lymphocyte % 22.9 % (19-41); Mean Corp Hgb Conc 31.4 g/dL (32-36); Mean Corpuscular Hgb 27.4 pg (27.0-32.0); Mean Corpuscular Volume 87.3 fL (81-99); Mean Platelet Vol. 10.2 fl (6.2-12.0); Monocyte# 0.95 X10^3/uL; Monocyte% 8.7 % (0-10); NRBC Flagged by Analyzer 0 % (0-5); Neutrophil # 6.99 X10^3/uL (2.7-7.7); Neutrophil % 64.3 % (47-70); Platelet Count 371 K/mm3 (150-450); RBC Distribution Width CV 15.3 % (11.6-14.6); RBC Distribution Width SD 48.7 fl (35.1-43.9); Red Blood Count 4.01 M/mm3 (4.2-5.4); White Blood Count 10.9 K/mm3 (4.4-11.0)
[2023-08-31 17:44] LABS: Vitamin D,25 Hydroxy 70.5 ng/mL
[2023-08-31 17:50] LABS: ALB/GLOB Ratio 0.8 RATIO (0.9-2.4); AST(SGOT) 225 U/L (15-37); Alanine Aminotransfer ALT/SGPT 245 U/L (13-56); Alkaline Phosphatase 125 U/L (45-117); Anion Gap 6 (5-15); BUN 26 mg/dL (7-18); BUN/Creat Ratio 19.8 RATIO (10-20); Chloride 107 mmol/L (98-107); Creatinine, Serum 1.31 mg/dL (0.55-1.02); EST Glomerular Filtration Rate 43 mL/min (>60); Est Glom Filt Rate - Afr Amer 52 mL/min (>60); Ferritin 45 ng/mL (8-252); Globulin 3.9 g/dL (2.2-4.2); Glucose 84 mg/dL (74-106); Iron 26 ug/dL (50-170); Potassium 3.3 mmol/L (3.5-5.1); Protein, Total 6.9 g/dL (6.4-8.2); Sodium Level 138 mmol/L (136-145)
[2023-08-31 17:55] LABS: Hemoglobin A1c 5.6 % (3.8-5.6)
== END | disposition home or self-care (01) ==
LOC: BFHLAB 14:20
PROVIDERS: PCP Family Medicine; Referring Provider Family Medicine; Visit Provider Family Medicine
DX: E55.9 Vitamin D deficiency, unspecified (principal); D50.9 Iron deficiency anemia, unspecified; R73.01 Impaired fasting glucose; Z51.81 Encounter for therapeutic drug level monitoring; R23.3 Spontaneous ecchymoses
CPT/HCPCS: 36415; 80053; 82306; 82728; 83036; 83540; 85025

== ENCOUNTER → 2023-09-16 | Outpatient (CLI) | payer MEDICARE, SELFPAY ==
[2023-09-16 15:39] LABS: ALB/GLOB Ratio 0.7 RATIO (0.9-2.4); AST(SGOT) 22 U/L (15-37); Alanine Aminotransfer ALT/SGPT 29 U/L (13-56); Albumin, Serum 2.7 g/dL (3.2-5.0); Alkaline Phosphatase 73 U/L (45-117); Anion Gap 6 (5-15); BUN 17 mg/dL (7-18); BUN/Creat Ratio 16.8 RATIO (10-20); Calcium,Total 8.3 mg/dL (8.5-10.1); Chloride 113 mmol/L (98-107); Creatinine, Serum 1.01 mg/dL (0.55-1.02); EST Glomerular Filtration Rate 58 mL/min (>60); Est Glom Filt Rate - Afr Amer 70 mL/min (>60); Globulin 3.7 g/dL (2.2-4.2); Glucose 124 mg/dL (74-106); Potassium 4.2 mmol/L (3.5-5.1); Protein, Total 6.4 g/dL (6.4-8.2); Sodium Level 142 mmol/L (136-145)
[2023-09-18 05:07] LABS: HEPATITIS B SURFACE AG Negative (Negative); Hep C Antibodies Non Reactive (Non Reactive); Hepatitis A IgM Antibody Negative (Negative); Hepatitis B Core AB IgM Negative (Negative)
== END | disposition home or self-care (01) ==
LOC: BFHLAB 13:48
PROVIDERS: PCP Family Medicine; Visit Provider Family Medicine
DX: R74.01 Elevation of levels of liver transaminase levels (principal); R74.8 Abnormal levels of other serum enzymes
CPT/HCPCS: 36415; 80053; 80074

== ENCOUNTER → 2023-11-04 | Outpatient (CLI) | payer MEDICARE, SELFPAY ==
--- NOTE | 2023-11-04 07:43 | CT_ITS ---
STUDY: LOW DOSE CT LUNG CANCER SCREENING REASON FOR EXAM: Female, 68 years old. SMOKER. Patient smokes half a pack per day for 47 years. COPD. RADIATION DOSAGE (If Supplied By Facility): CTDIvol = ( 1.59 ) mGy, DLP = ( 51.02 ) mGycm TECHNIQUE: No contrast was administered. Low dose technique was utilized (average mAS-38 and kVp 120). 1.25 mm axial source images with a slice interval of 1.25-mm were reconstructed in lung windows. 2.5 mm axial source images with a slice interval of 2.5-mm were reconstructed in lung windows. 5.0 mm axial source images with a slice interval of 5.0-mm were reconstructed in soft tissue windows. COMPARISON: Comparison is made with prior study dated October 31, 2022. NODULES: There is a new 7.6 mm noncalcified nodule in the peripheral lateral aspect of the right lower lobe as seen on axial image #99 and coronal image #47. Persistent loss of volume and bronchiectasis in the right middle lobe. There is a new 2.5 cm x 2.8 cm pleural-based nodular density in the anterior lateral aspect of the right middle lobe as seen on axial image #140 and coronal image #93. Emphysema: Emphysematous changes. There is evidence of increased interstitial markings with areas of confluence in the anterior aspect of the lingular segment of the left upper lobe with evidence of a 1.9 cm spiculated nodule as seen on axial image #148 and coronal image #90. Stable bullous formation in the lower lobes. Progressive scarring and/or infiltrates in both lower lobes. Endobronchial lesion: None Aorta: Atherosclerotic calcific density. CORONARY ARTERIES: Coronary artery calcification is seen. Heart: Unremarkable Pulmonary artery: Remarkable Mediastinal nodes: Small mediastinal lymph nodes. Other chest and abdominal findings: CT/Low Dose CT Lung Screening IMPRESSION: Lung-RADS category 4B - Chest CT with or without contrast, PET/CT and/or tissue sampling can be obtained depending on the probability of malignancy and comorbidities. IMPORTANT NOTES FOR USE: ACR Lung-RADS Version 1.1 Assessment Categories Release Date: 2018 Category: Coded 0-4 bases on nodule(s) with highest degree of suspicion. Negative screen is defined as categories 1 and 2; a positive screen is defined as categories 3 and 4. Category 3 and 4A nodules that are unchanged on interval CT should be coded as category 2, and individuals returned to screening in 12 months. Category 4X: Category 3 or 4 nodules with additional imaging findings that increase the suspicion of lung cancer, such as spiculation, GGN that doubles in size in 1 year, enlarged lymph notes, etc. Category Modifiers: S (significant finding unrelated to lung cancer) Electronically Signed: Luis Antonio Mota MD at 12:03 EDT ,
== END | disposition home or self-care (01) ==
LOC: CT 07:43
PROVIDERS: PCP Family Medicine; Referring Provider Nurse Practitioner Acute Care; Visit Provider Nurse Practitioner Acute Care
DX: Z12.2 Encounter for screening for malignant neoplasm of respiratory organs (principal); F17.210 Nicotine dependence, cigarettes, uncomplicated
CPT/HCPCS: 71271

== ENCOUNTER → 2023-11-05 | Outpatient (CLI) | payer MEDICARE, SELFPAY ==
[2023-11-05 08:49] LABS: Platelet Count 494 K/mm3 (150-450)
[2023-11-05 09:54] LABS: International Normalized Ratio 1.1; Prothrombin Time (Protime)PT. 14.2 SECONDS (11.7-14.9)
[2023-11-05 09:55] LABS: Partial Thromboplast Time 29.2 Seconds (24.1-36.2)
== END | disposition home or self-care (01) ==
PROVIDERS: PCP Family Medicine; Referring Provider Nurse Practitioner Acute Care; Visit Provider Nurse Practitioner Acute Care
DX: I48.91 Unspecified atrial fibrillation (principal); I10 Essential (primary) hypertension; R06.00 Dyspnea, unspecified
CPT/HCPCS: 36415; 85049; 85610; 85730

== ENCOUNTER → 2023-11-25 | Outpatient (CLI) | payer MEDICARE, SELFPAY ==
[2023-11-25] VITALS (16 sets, daily range): BP systolic 97–131; BP diastolic 56–83; PULSE 69–73; RESP 11–19; TEMP 35.8; O2SAT 7–100; BMI 26.1
[2023-11-25] MEDS: 0.9% Normal Saline (250mL Bag) 250 ML 15 ML IV (10:18)
[2023-11-25] MEDS: Midazolam 2 MG/2 ML Syringe IV ×2 (10:20→10:27)
[2023-11-25] MEDS: fentaNYL 100 MCG/2 ML Ampul IV ×3 (10:21→10:54)
[2023-11-25] MEDS: Lidocaine 2% (20 ml mdv) 20 ML Vial INFILT (10:33)
--- NOTE | 2023-11-25 10:40 | ASPIGT_PTH ---
PATIENT: TAJ BLANK LOC: [place] U#:[id number] AGE/SX: 68/F ROOM: RE11/25/[address]: MELA Shelby : 1955 BED: DIS: 11/25/2023 SPEC #: [id number] RECD: 11/25/23 11:40 STATUS: MADHU REShmuel #: [id number] DAYDAY: 11/25/23 10:[address]: Maricarmen Acevedo NP DEPT: SURGICAL PATHOLOGY RECD BY: Candida Aggarwal ENTERED: 11/25/23 11:41 SP TYPE: ASP RAD OTHR DR: Dr. Chrystal Michel DO Tissues: Lung, NOS Procedures: FNA Specimen Adequacy Elastin Stain (control) Trichrome (control) Special Stain Group II Special Stain Group I Surgery Specimen Level IV AFB Stain (control) GMS Stain (control) Retic (control) Iron Stain (control) Imprint (control) HEADER OPERATION: Lung biopsy PRE-OP DIAGNOSIS: Right lung biopsy- nodule TISSUE SUBMITTED: 20 gauge core x4 right middle lobe MICROSCOPIC DIAGNOSIS Right lung nodule, CT guided core biopsy: Lung tissue shows granuloma, polyclonal plasma cell and scanty neutrophil infiltration, focal necrosis is present See comment. MIGUEL/ 12/02/2023 COMMENT The specimen is evaluated at the time of biopsy by Dr. Lanza. Immediate Evaluation = Atypical epithelial cells, suspicious for malignancy. The specimen is sent to [facility] for expert opinion, reviewed by Dr. Linn and the above diagnosis is rendered. The complete report is viewable in the patient's EMR. Dr. Linn also commented inflammation involved small vessels. The histological findings are non-specific inflammatory granulomatous changes. Special stains for acid fast bacilli and fungi are negative for organisms; matched controls are appropriate. Trichome, reticulin, elastic and iron stains with matched controls are also used in the evaluation of the specimen. Case has been reviewed in consultation with Dr. Lanza who concurs with the above diagnosis. IDC:AM MICROSCOPIC DESCRIPTION Slides are reviewed. GROSS DESCRIPTION Received is one container labeled with the patient's name and not further designated. The specimen consists of multiple irregular and elongated fragments of benson tissue measuring in aggregate 0.7 x <0.1 x <0.1cm. The specimen is submitted in entirety in one cassette. Two touch imprints are prepared at the time of core biopsy. MADONNA/ 11/25/2023 TC:3 CPT:63074,47099y1,66021d0
--- NOTE | 2023-11-25 10:49 | RAD_ITS ---
STUDY: X-RAY CHEST REASON FOR EXAM: Female, 68 years old. Post lung biopsy -- Immediately post lung biopsy TECHNIQUE: AP inspiration and expiration views. COMPARISON: Comparison is made with prior study dated May 03, 2023. FINDINGS: EKG electrodes are seen. The patient is status post right middle lobe lung biopsy. There is no evidence of pneumothorax. Persistent patchy bibasilar infiltrates. RAD/Chest Insp/Exp 2 View IMPRESSION: No evidence of pneumothorax on the immediate post right lung biopsy radiographs. Electronically Signed: Luis Antonio Mota MD at 11:08 EDT ,
--- NOTE | 2023-11-25 10:54 | PRO.PCM_ITS ---
Procedure Report Date of Procedure: 11/25/23 Assessment & Plan Assessment/Plan (1) Right middle lobe pulmonary nodule: PLAN: PROCEDURE: CT GUIDED CORE NEEDLE LUNG BIOPSY ORDERING PROVIDER: Maricarmen Acevedo CNP INDICATION: Female, 68 years old. Right middle lobe pulmonary nodule. PROVIDER: ANTHONY Argueta CONSENT: Written informed consent was obtained having explained the risks, benefits and alternatives in detail with the patient who accepted the risks and agreed to proceed. Laboratory review and clinical assessment was performed. PRE-PROCEDURE SEDATION ASSESSMENT: Current history and physical dictated by referring physician and reviewed. No clinical changes since date of exam. Patient has a Mallampati Score of Class 2 and ASA Class of 3. PROCEDURAL SEDATION PROTOCOL: The Drugs used were: 2 mg Versed, IV, and 50 mcg Fentanyl, IV. The sedation time was: 22 minutes, starting at 1020 and terminated at 1042. The procedural sedation protocol was independently monitored by the department nurse. RADIATION DOSAGE (If Supplied By Facility): CTDIvol = 22.43 mGy, DLP = 305.54 mGycm Individualized dose optimization techniques were used for this CT. TECHNIQUE: The patient was placed in a supine position. A noncontrast CT was performed to localize the lesion in the right middle lobe. The skin surface was prepped and draped in a sterile fashion. 2% lidocaine was used for local anesthesia. Using CT guidance, a 20-gauge coaxial biopsy device was advanced to the periphery of the lesion. A total of 4 core specimens were obtained. Specimens were microscopically reviewed by pathology in the CT suite and placed in formalin solution. BioSentry tract sealant system was deployed at the biopsy site, and the biopsy needle was removed. A sterile occlusive dressing was applied to the biopsy site. The patient tolerated the procedure well. An immediate chest xray was ordered, per protocol. A negative biopsy does not exclude malignancy. Further imaging or clinical followup based on patient condition and degree of clinical suspicion for malignancy. Suggest rebiopsy, if biopsy results do not match with clinical scenario. IMPRESSION: 1. CT directed core needle biopsy of right middle lobe lung nodule using CT image guidance with image documentation as described. Pathology results are pending. 2. Procedural Sedation protocol utilized with independent monitoring by the chloe wiggins nurse. Procedures Radiology Radiology CT Procedures: 77552 Biopsy Lung
--- NOTE | 2023-11-25 12:51 | RAD_ITS ---
STUDY: X-RAY CHEST REASON FOR EXAM: Female, 68 years old. Post lung biopsy -- 2 hours post lung biopsy TECHNIQUE: AP inspiration and expiration views. COMPARISON: Comparison is made with prior study dated November 25, 2023 at 10:45 AM. FINDINGS: There is no evidence of a pneumothorax following the right middle lobe lung biopsy. RAD/Chest Insp/Exp 2 View IMPRESSION: No evidence of pneumothorax on the 2 hour radiographs following the right midlung biopsy. Electronically Signed: Luis Antonio Mota MD at 10:54 EDT ,
== END | disposition home or self-care (01) ==
LOC: CT 08:49
PROVIDERS: PCP Family Medicine; Referring Provider Nurse Practitioner Acute Care; Visit Provider Nurse Practitioner Acute Care
DX: R91.1 Solitary pulmonary nodule (principal); J84.10 Pulmonary fibrosis, unspecified; J85.0 Gangrene and necrosis of lung
CPT/HCPCS: 32408; 71046; 77012; 88172; 88305; 88312; 88313; 99156; J7050; A4216; C2613

== ENCOUNTER 2024-01-15 01:24 | Inpatient (IN) | payer MEDICARE, SELFPAY ==
[2024-01-15] VITALS (26 sets, daily range): BP systolic 95–246; BP diastolic 55–192; PULSE 88–122; RESP 12–33; TEMP 36.4–39.5; O2SAT 85–99; BMI 23.5; BMI 28.7
[2024-01-15] MEDS: Albuterol 2.5 MG/3 ML VIAL.NEB. INHALATION (01:55)
[2024-01-15] MEDS: Ipratropium/Albuterol Sulfate 3 ML AMPUL.NEB INHALATION ×5 (01:55→19:04)
[2024-01-15 02:05] LABS: Absolute Lymphocyte Count 2.65 X10^3/uL (0.83-4.51); Absolute Neutrophil Count 11.9 X10^3/uL (2.0-7.7); Basophil# 0.12 X10^3/uL; Basophil% 0.8 % (0-1); Eosinophil# 0.08 X10^3/uL; Eosinophils% 0.5 % (0-5); Hematocrit 34.6 % (37-47); Hemoglobin 10.4 g/dL (12.0-15.0); Lymphocyte # 2.65 X10^3/ul (0.83-4.51); Lymphocyte % 16.6 % (19-41); Mean Corp Hgb Conc 30.1 g/dL (32-36); Mean Corpuscular Hgb 25.1 pg (27.0-32.0); Mean Corpuscular Volume 83.6 fL (81-99); Mean Platelet Vol. 9.3 fl (6.2-12.0); Monocyte# 1.09 X10^3/uL; Monocyte% 6.8 % (0-10); NRBC Flagged by Analyzer 0 % (0-5); Neutrophil # 11.93 X10^3/uL (2.7-7.7); Neutrophil % 74.5 % (47-70); Platelet Count 559 K/mm3 (150-450); RBC Distribution Width CV 15.6 % (11.6-14.6); RBC Distribution Width SD 47.2 fl (35.1-43.9); Red Blood Count 4.14 M/mm3 (4.2-5.4)
[2024-01-15 02:08] LABS: Blood Gas Specimen Type VEN; O2 Delivery Device BiPAP; SITE Not entered; VBG BASE EXCESS 4 mmol/L (-1.0-3.5); VBG Bicarbonate 30 mmol/L (22-26); VBG PO2 21 mmHg (25-40); VBG SO2 30 % (50-70); VBG TCO2 32 mmol/L (23-33); VBG pCO2 55.2 mmHg (41-51); VBG pH 7.34 (7.32-7.42)
[2024-01-15] MEDS: LORazepam 2 MG/ML Syringe 1 MG IV (02:20)
--- NOTE | 2024-01-15 02:20 | RAD_ITS ---
INDICATION: SOB EXAMINATION/TECHNIQUE: X-RAY - XR Chest 1 View COMPARISON: 11/25/2023. FINDINGS: LINES/DEVICES: None. LUNGS: Bilateral lower lung atelectasis versus infiltrates. Probable right upper lobe infiltrate. No evidence of a pleural effusion or a pneumothorax. MEDIASTINUM AND CARDIOVASCULAR STRUCTURES: Cardiac silhouette is normal in size and contour. Mediastinum is unremarkable. BONES AND SOFT TISSUES: Chronic bilateral rib fractures. RAD/Chest 1 View (Portable) IMPRESSION: 1. Right upper lobe infiltrate consistent with pneumonia. 2. Bilateral lower lung atelectasis versus infiltrates. Electronically Signed: Noble Albarran DO at 2:57 EDT ,
[2024-01-15 02:21] LABS: Anion Gap 8 (5-15); BUN 23 mg/dL (7-18); BUN/Creat Ratio 19.3 RATIO (10-20); Calcium,Total 9.6 mg/dL (8.5-10.1); Chloride 102 mmol/L (98-107); Creatinine, Serum 1.19 mg/dL (0.55-1.02); EST Glomerular Filtration Rate 48 mL/min (>60); Est Glom Filt Rate - Afr Amer 58 mL/min (>60); Glucose 153 mg/dL (74-106); Potassium 4.6 mmol/L (3.5-5.1); Sodium Level 137 mmol/L (136-145)
[2024-01-15 02:28] LABS: BNP,B-Type NATRIURETIC PEPTIDE 60.9 pg/mL (0-100)
[2024-01-15 02:31] LABS: Procalcitonin 0.06 ng/mL (0.00-0.09)
[2024-01-15 02:43] LABS: Lactic Acid 1.1 mmol/L (0.4-1.9)
[2024-01-15] MEDS: Acetaminophen 500 MG Tablet 1000 MG PO (03:31)
[2024-01-15] MEDS: 0.9% Normal Saline (1000mL) 1,000 ML 999 ML IV (03:48)
[2024-01-15] MEDS: 0.9% Normal Saline (500mL Bag) 500 ML 999 ML IV (03:48)
[2024-01-15] MEDS: Meropenem 1 GM in 0.9% Normal Saline (100mL MB+) 100 ML IV (03:48)
[2024-01-15 03:59] LABS: Mucous, Urine 0 SEEN /hpf (<or=2+); Red Blood Cells-Urine 0 SEEN /hpf (0-5); Squamous Epithelial Cells - UA 0 SEEN /hpf (5-10)
--- NOTE | 2024-01-15 04:01 | EDS_ITS ---
HPI History of Present Illness Chief Complaint: Shortness of Breath Informant: patient, spouse/S.O. and EMS Narrative Narrative: Patient is a 68-year-old female with past medical history of COPD hypertension fibromyalgia and obstructive sleep apnea. Reportedly she has been feeling unwell for the past few weeks but this evening began with increased cough congestion and shortness of breath and therefore EMS was called. EMS states when they arrived she was awake and alert but had increased work of breathing and her room air pulse ox was 65%. She was placed on CPAP and brought to the hospital for evaluation. EMS reports they also gave her Solu-Medrol prior to arrival. [facility] Medical History Chronic respiratory failure with hypoxia COPD (chronic obstructive pulmonary disease) Normocytic anemia Fibromyalgia RAUL (obstructive sleep apnea) Incisional hernia TIA (transient ischemic attack) Osteoporosis Osteoarthritis Thyroid disorder Diverticulitis History of heart attack Sleep apnea History of pneumonia History of bronchitis Asthma HTN (hypertension) Depression Anxiety Nausea and vomiting GERD (gastroesophageal reflux disease) Heart disease spinal stimulator Spinal stenosis Chronic back pain Hypothyroidism Home Medications ?Medication ?Instructions ?Recorded ?Last Taken ?Type atorvastatin 80 mg tablet 80 mg PO QHS cholesterol 06/01/13 05/25/14 History 80 MG clopidogrel 75 mg tablet 75 mg PO DAILY anti platelet 06/01/13 11/18/23 History lorazepam 1 mg tablet (Ativan) 1 mg PO BID-TID PRN Anxiety 11/17/18 Unknown History hydroxyzine HCl 50 mg tablet 50 mg PO QHS 12/01/18 Unknown History duloxetine 60 mg capsule,delayed 60 mg PO BID 06/19/20 Unknown History release furosemide 40 mg tablet 60 mg PO DAILY 08/23/22 Unknown History levothyroxine 50 mcg tablet 50 mcg PO DAILY 08/23/22 Unknown History liothyronine 5 mcg tablet 25 mcg PO DAILY 08/23/22 Unknown History topiramate 25 mg tablet 50 mg PO QHS 08/23/22 Unknown History triamcinolone acetonide 0.1 % 1 applic topical BID 08/23/22 Unknown History topical cream mometasone-formoterol HFA 200 2 inh inhalation BID #3 ea 03/11/23 Unknown Rx mcg-5 mcg/actuation aerosol inhaler (Dulera) montelukast 10 mg tablet 10 mg PO QPM #90 tabs 03/11/23 Unknown Rx tiotropium bromide 2.5 2 inh inhalation DAILY #3 ea 03/11/23 Unknown Rx mcg/actuation mist for inhalation (Spiriva Respimat) pantoprazole 40 mg tablet,delayed 40 mg PO BID 30 days #60 tabs 05/06/23 Unknown Rx release baclofen 10 mg tablet 10 mg PO DAILY 10/09/23 Unknown History buspirone 7.5 mg tablet 10 mg PO BID 10/09/23 Unknown History cholecalciferol (vitamin D3) 25 25 mcg PO DAILY 10/09/23 Unknown History mcg (1,000 unit) capsule diclofenac sodium 75 mg 75 mg PO BID 10/09/23 Unknown History tablet,delayed release metoprolol tartrate 25 mg tablet 25 mg PO Q12H blood pressure 10/09/23 Unknown History azithromycin 250 mg tablet 250 mg PO QMWF #36 tabs 10/16/23 Unknown Rx albuterol sulfate 90 mcg/actuation 1 - 2 puff inhalation Q6H PRN PRN 10/27/23 Unknown Rx aerosol inhaler COPD #2 device acetaminophen 500 mg tablet 500 mg PO Q6H PRN pain 11/05/23 Unknown History quetiapine 200 mg tablet 200 mg PO QHS 11/05/23 Unknown History levothyroxine 75 mcg tablet 75 mcg PO .SATSUN 01/15/24 Unknown History Allergy/AdvReac Type Severity Reaction Status Date / Time cefaclor (From Ceclor) Allergy Itching Verified 12/02/23 11:03 clarithromycin Allergy Hives Verified 12/02/23 11:03 doxycycline Allergy Itching Verified 12/02/23 11:03 Penicillins Allergy Hives Verified 12/02/23 11:03 Sulfa (Sulfonamide Allergy Hives Verified 12/02/23 11:03 Antibiotics) biotin AdvReac Unknown Unknown Verified 12/02/23 11:03 zolpidem (From Ambien) AdvReac Unknown mental Verified 12/02/23 11:03 issues Family History Father Asthma Heart disease Grandmother Breast cancer Diabetes Mother Heart disease COPD (chronic obstructive pulmonary disease) Other Cancer Surgical History History of incisional hernia repair History of incisional hernia repair (~12/20/18) Hx of cholecystectomy History of esophagogastroduodenoscopy (EGD) (~07/2018) Previous back surgery S/P hysterectomy S/P carpal tunnel release S/P knee surgery S/P correction of deviated nasal septum Status post thyroidectomy H/O heart artery stent Status post amputation of right foot Social History (Updated 01/15/24 @ 04:[address] Vane Lisa MD) household members: spouse Smoking Status: Former smoker Tobacco: How many years used: 25 second hand exposure: Yes alcohol intake: never substance use type: does not use caffeine: Yes what type of physical activity do you participate in: none frequency: does not exercise ROS ROS ED Constitutional Constitutional ED: Reports chills and fever(s) ENT ENT ED: Reports rhinorrhea; Denies sore throat Cardiovascular Cardiovascular: Denies chest pain Respiratory/Chest Respiratory/Chest: Reports cough and dyspnea Gastrointestinal Gastrointestinal: Denies abdominal pain, diarrhea, nausea or vomiting Genitourinary Genitourinary ED: Denies dysuria Musculoskeletal Musculoskeletal: Reports myalgias Integumentary Denies rash Neurologic Neurologic: Reports weakness; Denies headache(s) Hematologic/Lymphatic Hematologic/Lymphatic: Denies easy bleeding or easy bruising Allergic/Immunologic Allergic/Immunologic ED: Denies mouth swelling or tongue swelling EXAM Physical Exam Const Vital Signs: 01/15/24 01:24 01/15/24 01:26 01/15/24 01:36 Temperature 98.9 F 98.9 F Temperature Source Axillary Axillary Pulse Rate 121 H 119 H Respiratory Rate 29 H 23 H Respiratory Effort Short of Breath Labored Accessory Muscle Use Head [place] Respiratory Depth Shallow Respiratory Pattern Tachypnea Blood Pressure 246/192 H 246/192 H Blood Pressure Mean 210 210 Pulse Ox 95 97 Oxygen Delivery Method Bi-pap Bi-pap Oxygen Flow Rate (L/min) 80 Fraction of Inspired Oxygen (FIO2) 80 01/15/24 01:50 01/15/24 01:50 01/15/24 01:55 Temperature Temperature Source Pulse Rate 122 H 119 H Respiratory Rate 33 H 30 H Respiratory Effort Respiratory Depth Respiratory Pattern Tachypnea Tachypnea Blood Pressure Blood Pressure Mean Pulse Ox 94 94 Oxygen Delivery Method Bi-pap Oxygen Flow Rate (L/min) Fraction of Inspired Oxygen (FIO2) 40 40 01/15/24 02:43 01/15/24 03:00 01/15/24 03:09 Temperature 101.5 F H 101.2 F H Temperature Source Axillary Axillary Pulse Rate 119 H 118 H Respiratory Rate 30 H 32 H Respiratory Effort Respiratory Depth Respiratory Pattern Blood Pressure 122/65 H 107/90 H Blood Pressure Mean 84 95 Pulse Ox 92 97 92 Oxygen Delivery Method Bi-pap Bi-pap Nasal Cannula Oxygen Flow Rate (L/min) 6 Fraction of Inspired Oxygen (FIO2) 40 40 01/15/24 04:00 Temperature 103.1 F H Temperature Source Oral Pulse Rate 111 H Respiratory Rate 26 H Respiratory Effort Respiratory Depth Respiratory Pattern Blood Pressure 110/55 L Blood Pressure Mean 73 Pulse Ox 93 Oxygen Delivery Method Nasal Cannula Oxygen Flow Rate (L/min) 6 Fraction of Inspired Oxygen (FIO2) Positive well nourished and well developed Constitutional Narrative: Patient is in respiratory distress with tachypnea and accessory muscle use General Appearance ED: well developed; Negative for pallor HEENT HEENT Narrative: No tongue or lip swelling no oral lesions no airway edema or compromise There is cobblestoning noted in the posterior pharynx consistent with sinus drainage No secondary findings to suggest infection Eyes PERRL and EOMs intact bilaterally General Eye ED: Negative for scleral icterus Neck supple and no JVD Neck Narrative: No nuchal rigidity or meningeal signs No crepitance palpated Chest Wall palpation of chest normal Resp Resp Narrative: Breath sounds are diminished with diffuse rhonchi. Patient has respiratory distress with tachypnea and accessory muscle use. Cardio regular rhythm Rate: tachycardic GI normal to inspection, nondistended, normoactive bowel sounds, non-tender, non- distended and no masses Auscultation: normoactive bowel sounds Palpation: soft Extremity Extremity Narrative: Right below the knee amputation No pitting edema and negative Homans' sign of the left leg Neuro oriented x3 and CN's II-XII intact bilaterally Sensorium / Orientation: alert Psych mental status grossly normal Skin no rashes or lesions noted General Skin Exam: Negative for jaundice or pallor MDM MDM MDM Narrative Medical decision making narrative: Patient arrived to the ER in respiratory distress with tachypnea and accessory muscle use. She has known history of COPD and with EMS reporting a pulse ox of 65% on room air as well as the fact the patient's been reporting feeling unwell there is concern for pneumonia versus congestive heart failure/pleural effusion versus pneumothorax versus viral infection such as COVID flu RSV. Secondary to this a chest x-ray was obtained and basic labs. The patient had a fever of 101 and therefore she was given Tylenol and blood cultures were obtained. In order to assess for any possible cause of infection a urine sample and urine culture were also ordered. Based on the patient's tachycardia white count above 12.4 tachypnea and fever she does qualify as sepsis. Secondary to this she was started on 30 mL/kg fluid bolus and was given vancomycin and meropenem. Meropen em was given as patient has an allergy to penicillin as well as cephalosporin and I felt it was necessary to treat with broad-spectrum antibiotics initially and then this can be dialed in once blood cultures and potential sputum cultures are resulted. The patient had improved with BiPAP and treatment and was able be taken off BiPAP and transition to 6 L nasal cannula oxygen. This is only slightly above her baseline of 4 L. Her pulse ox was 88 to 92% which is acceptable based on her known history of COPD. At this time x-ray shows multilobar pneumonia she is displaying labs and vital sign changes concerning for sepsis and therefore she need to be admitted to the hospital for continued IV antibiotics while cultures are pending. The case was discussed with the hospitalist who agrees with this and therefore she will be admitted for further care History & Record Review Discussion w/independent historian: EMS personnel and Patient Lab Data Attestation: I reviewed the patient's lab results. Labs: Laboratory Results - last 24 hr 01/15/24 01/15/24 01:05 03:45 WBC 16.0 H RBC 4.14 L Hgb 10.4 L Hct 34.6 L MCV 83.6 MCH 25.1 L MCHC 30.1 L RDW Std Deviation 47.2 H RDW Coeff of [place] 15.6 H Plt Count 559 H MPV 9.3 Immature Gran % (Auto) 0.800 Neut % (Auto) 74.5 H Lymph % (Auto) 16.6 L [place] % (Auto) 6.8 Eos % (Auto) 0.5 Baso % (Auto) 0.8 Absolute Neuts (auto) 11.9 H Absolute Lymphs (auto) 2.65 Nucleated RBC % 0 Sodium 137 Potassium 4.6 Chloride 102 Carbon Dioxide 27.0 Anion Gap 8 BUN 23 H Creatinine 1.19 H Estim Creat Clear Calc 32.50 Est GFR (MDRD) Af Amer 58 L Est GFR (MDRD) Non-Af 48 L BUN/Creatinine Ratio 19.3 Glucose 153 H Lactic Acid 1.1 Calcium 9.6 Magnesium 2.0 B-Natriuretic Peptide 60.9 Procalcitonin 0.06 Urine Color Yellow Urine Clarity Clear Urine pH 6.0 Ur Specific [place] 1.015 Urine Protein 15 H Urine Glucose (UA) Normal Urine Ketones Negative Urine Occult Blood 10 H Urine Nitrite Negative Urine Bilirubin Negative Urine Urobilinogen Normal Ur Leukocyte Esterase 100 H Urine RBC 0 SEEN Urine WBC 0-5 SEEN Ur Squamous Epith Cells 0 SEEN Urine Bacteria 4+ Urine Mucus 0 SEEN ABG Data ABG results: ABG 01/15/24 02:05 Specimen Type CHANTEL Sample Site Not entered O2 % 40.0 VBG pH 7.34 VBG pO2 21 L VBG HCO3 30 H VBG Total CO2 32 VBG O2 Sat (Calc) 30 L VBG Base Excess 4 H POC Mix VBG pCO2 Pt Tmp 55.2 H O2 Delivery Device BiPAP Clinical Comments Radiography Diagnostic Testing: Chest x-ray as interpreted by the emergency medicine physician reveals right upper lobe haziness consistent with pneumonia as well as bilateral lower lung haziness concerning for pneumonia Management Discussion w/another healthcare provider: Hospitalist Discharge Plan Dx/Rx/DC Orders Clinical Impression: Acute and chronic respiratory failure with hypoxia, Pneumonia, Sepsis, HTN (hypertension), COPD (chronic obstructive pulmonary disease) Disposition Disposition: Acute Care [facility] Discharge Date/Time: 01/15/24 04:39
[2024-01-15 04:02] LABS: Color, Urine Yellow (Yellow); Glucose, Dipstick Normal (Normal); Ketone-Dipstick Negative (Negative); Leukocyte Esterase-Dipstick 100 /ul (Negative); Nitrite-Dipstick Negative (Negative); Occult Blood-Urine 10 /ul (Negative); Protein-Dipstick 15 mg/dl (Negative); Specific Gravity, Urine 1.015 (1.002-1.030); Urine Bilirubin Dipstick Negative (Negative); Urine Clarity Clear (Clear); Urine Urobilinogen Normal (Normal)
--- NOTE | 2024-01-15 04:12 | PCM.HP.STD ---
HPI - General General Date of Admission: 01/15/24 Date of Service: 01/15/24 Chief Complaint: Sepsis, COPD exac, PNA HPI Narrative The patient is a 68 y/o F w/ PMHx: Suspected Rheumatoid arthritis, CKD stage III unclear subtype per GFR trending, COPD/Asthma w/ Chronic Hypoxic Respiratory Failure (4L NC per most recent pulmonary note) with allergic rhinitis and bronchiectasis, Chronic anemia, RAUL, Hx TIA, Anxiety and Depression, GERD, HTN, HLD, Chronic back pain, Hypothyroidism status post previous thyroidectomy, CAD s/p PCI, Former tobacco use who presents to the [facility] ED on 01/15/24 with history of upper respiratory infection ongoing for the last approximate 2 weeks becoming more short of breath prompting EMS call noted to be 65% on room air upon their arrival prompting transition to CPAP and transition to the hospital for evaluation. She notes during the course of the 2 weeks especially initially she had rhinorrhea, congestion, occasional headache, sore throat, intermittent fevers and chills, productive cough of green sputum intermittently, dyspnea worse with exertion as well as occasional nausea, emesis and loose stools with no specific abdominal pain with decreased appetite. Workup in the ED included T98.9, heart rate 121, BP 246/192, respiratory rate 29, 95% 80% FiO2 BiPAP--> most recent repeat vital signs T101.2, heart rate 118, BP 107/90, respiratory rate 32, 97% on BiPAP now decreased to 40% FiO2, CBC with WBC 16, human 10.4, MCV 83.6, platelet 559 with left shift, VBG with pH 7.34, pO2 21, bicarb 30, O2 saturation at 30%, total CO2 32 obtained on BiPAP, BMP with BUN/creatinine 23/1.19, GFR 48, glucose 153, lactic acid 1.1, magnesium 2.0, BNP 60.9, procalcitonin 0.06, chest x-ray with multilobar PNA appearance but similar to prior at the bases but final read pending per radiology, Rapid SARS COVID/influenza/RSV PCR negative, blood culture x 2 pending per ED, UA/urine culture pending per ED. In the ED patient ministered DuoNeb therapy, Ativan 1 mg IV x 1, IV vancomycin, IV meropenem, Tylenol 1000 mg p.o. x 1 and 2 L normal saline and albuterol regimen. Patient administered Solu-Medrol en route with EMS. FORMERLY [facility] Medical History Chronic respiratory failure with hypoxia COPD (chronic obstructive pulmonary disease) Normocytic anemia Fibromyalgia RAUL (obstructive sleep apnea) Incisional hernia TIA (transient ischemic attack) Osteoporosis Osteoarthritis Thyroid disorder Diverticulitis History of heart attack Sleep apnea History of pneumonia History of bronchitis Asthma HTN (hypertension) Depression Anxiety Nausea and vomiting GERD (gastroesophageal reflux disease) Heart disease spinal stimulator Spinal stenosis Chronic back pain Hypothyroidism Home Medications ?Medication ?Instructions ?Recorded ?Last Taken ?Type atorvastatin 80 mg tablet 80 mg PO QHS cholesterol 06/01/13 05/25/14 History 80 MG clopidogrel 75 mg tablet 75 mg PO DAILY anti platelet 06/01/13 11/18/23 History lorazepam 1 mg tablet (Ativan) 1 mg PO BID-TID PRN Anxiety 11/17/18 Unknown History hydroxyzine HCl 50 mg tablet 50 mg PO QHS 12/01/18 Unknown History duloxetine 60 mg capsule,delayed 60 mg PO BID 06/19/20 Unknown History release furosemide 40 mg tablet 60 mg PO DAILY 08/23/22 Unknown History levothyroxine 50 mcg tablet 50 mcg PO DAILY 08/23/22 Unknown History liothyronine 5 mcg tablet 25 mcg PO DAILY 08/23/22 Unknown History topiramate 25 mg tablet 50 mg PO QHS 08/23/22 Unknown History triamcinolone acetonide 0.1 % 1 applic topical BID 08/23/22 Unknown History topical cream mometasone-formoterol HFA 200 2 inh inhalation BID #3 ea 03/11/23 Unknown Rx mcg-5 mcg/actuation aerosol inhaler (Dulera) montelukast 10 mg tablet 10 mg PO QPM #90 tabs 03/11/23 Unknown Rx tiotropium bromide 2.5 2 inh inhalation DAILY #3 ea 03/11/23 Unknown Rx mcg/actuation mist for inhalation (Spiriva Respimat) pantoprazole 40 mg tablet,delayed 40 mg PO BID 30 days #60 tabs 05/06/23 Unknown Rx release baclofen 10 mg tablet 10 mg PO DAILY 10/09/23 Unknown History buspirone 7.5 mg tablet 10 mg PO BID 10/09/23 Unknown History cholecalciferol (vitamin D3) 25 25 mcg PO DAILY 10/09/23 Unknown History mcg (1,000 unit) capsule diclofenac sodium 75 mg 75 mg PO BID 10/09/23 Unknown History tablet,delayed release metoprolol tartrate 25 mg tablet 25 mg PO Q12H blood pressure 10/09/23 Unknown History azithromycin 250 mg tablet 250 mg PO QMWF #36 tabs 10/16/23 Unknown Rx albuterol sulfate 90 mcg/actuation 1 - 2 puff inhalation Q6H PRN PRN 10/27/23 Unknown Rx aerosol inhaler COPD #2 device acetaminophen 500 mg tablet 500 mg PO Q6H PRN pain 11/05/23 Unknown History quetiapine 200 mg tablet 200 mg PO QHS 11/05/23 Unknown History levothyroxine 75 mcg tablet 75 mcg PO .SATSUN 01/15/24 Unknown History Allergy/AdvReac Type Severity Reaction Status Date / Time cefaclor (From Ceclor) Allergy Itching Verified 12/02/23 11:03 clarithromycin Allergy Hives Verified 12/02/23 11:03 doxycycline Allergy Itching Verified 12/02/23 11:03 Penicillins Allergy Hives Verified 12/02/23 11:03 Sulfa (Sulfonamide Allergy Hives Verified 12/02/23 11:03 Antibiotics) biotin AdvReac Unknown Unknown Verified 12/02/23 11:03 zolpidem (From Ambien) AdvReac Unknown mental Verified 12/02/23 11:03 issues Family History Father Asthma Heart disease Grandmother Breast cancer Diabetes Mother Heart disease COPD (chronic obstructive pulmonary disease) Other Cancer Surgical History History of incisional hernia repair History of incisional hernia repair (~12/20/18) Hx of cholecystectomy History of esophagogastroduodenoscopy (EGD) (~07/2018) Previous back surgery S/P hysterectomy S/P carpal tunnel release S/P knee surgery S/P correction of deviated nasal septum Status post thyroidectomy H/O heart artery stent Status post amputation of right foot Social History (Updated 01/15/24 @ 04:[address] Vane Lisa MD) household members: spouse Smoking Status: Former smoker Tobacco: How many years used: 25 second hand exposure: Yes alcohol intake: never substance use type: does not use caffeine: Yes what type of physical activity do you participate in: none frequency: does not exercise ROS ROS Narrative Admission Review of Systems: CONSTITUTIONAL: No weight loss, + fever, chills, weakness or fatigue. HEENT: + Headache, sore throat, congestion, rhinorrhea. Eyes: No visual loss, blurred vision, double vision or yellow sclerae. Ears, Nose, Throat: No hearing loss, sneezing. SKIN: No rash or itching, lesions, wounds. CARDIOVASCULAR: No chest pain, chest pressure or chest discomfort, palpitations, edema, orthopnea, syncopal events. RESPIRATORY: + shortness of breath, cough, intermittent productive sputum, wheezing. No hemoptysis. GASTROINTESTINAL: + anorexia, nausea, vomiting, diarrhea. No abdominal pain, melena, BRBPR. GENITOURINARY: No dysuria, frequency, urgency or retention. NEUROLOGICAL: + Headache, No dizziness, syncope, paralysis, ataxia, numbness or tingling in the extremities, focal weakness, change in bowel or bladder control, seizure. MUSCULOSKELETAL: + muscle, back pain, joint pain or stiffness. HEMATOLOGIC: + Chronic anemia, easy bleeding/bruising. LYMPHATICS: No enlarged nodes. No history of splenectomy. PSYCHIATRIC: + History of anxiety and depression. ENDOCRINOLOGIC: + reports of sweating, cold or heat intolerance. No polyuria or polydipsia. ALLERGIES: + History of asthma, allergic rhinitis. Vital Signs Vital Signs Vital Signs: 01/15/24 01:24 01/15/24 01:26 01/15/24 01:36 Temperature 98.9 F 98.9 F Temperature Source Axillary Axillary Pulse Rate 121 H 119 H Respiratory Rate 29 H 23 H Respiratory Effort Short of Breath Labored Accessory Muscle Use Head [place] Respiratory Depth Shallow Respiratory Pattern Tachypnea Blood Pressure 246/192 H 246/192 H Blood Pressure Mean 210 210 Pulse Ox 95 97 Oxygen Delivery Method Bi-pap Bi-pap Oxygen Flow Rate (L/min) 80 Fraction of Inspired Oxygen (FIO2) 80 01/15/24 01:50 01/15/24 01:50 01/15/24 01:55 Temperature Temperature Source Pulse Rate 122 H 119 H Respiratory Rate 33 H 30 H Respiratory Effort Respiratory Depth Respiratory Pattern Tachypnea Tachypnea Blood Pressure Blood Pressure Mean Pulse Ox 94 94 Oxygen Delivery Method Bi-pap Oxygen Flow Rate (L/min) Fraction of Inspired Oxygen (FIO2) 40 40 01/15/24 02:43 01/15/24 03:00 01/15/24 03:09 Temperature 101.5 F H 101.2 F H Temperature Source Axillary Axillary Pulse Rate 119 H 118 H Respiratory Rate 30 H 32 H Respiratory Effort Respiratory Depth Respiratory Pattern Blood Pressure 122/65 H 107/90 H Blood Pressure Mean 84 95 Pulse Ox 92 97 92 Oxygen Delivery Method Bi-pap Bi-pap Nasal Cannula Oxygen Flow Rate (L/min) 6 Fraction of Inspired Oxygen (FIO2) 40 40 01/15/24 04:00 Temperature 103.1 F H Temperature Source Oral Pulse Rate 111 H Respiratory Rate 26 H Respiratory Effort Respiratory Depth Respiratory Pattern Blood Pressure 110/55 L Blood Pressure Mean 73 Pulse Ox 93 Oxygen Delivery Method Nasal Cannula Oxygen Flow Rate (L/min) 6 Fraction of Inspired Oxygen (FIO2) Weight Weight: 112 lb 10.499 oz Body Mass Index (BMI) 23.5 Physical Exam Narrative Physical Examination: General: Awake, alert, oriented x 3 and cooperative, seated upright in the ED bed, fatigued and ill-appearing, mildly increased respiratory rate, now off BiPAP, patient reports feeling improved since initial ED arrival, respiratory distress has improved. Skin: Normal color, normal turgor, no icterus, no cyanosis except occasional staged ecchymoses. HEENT: AT/NC, EOMI, PERRLA, dry MM, no carotid bruits or JVD noted. Lungs: Diffusely diminished, greater bases, increased respiratory rate, occasional end expiratory wheeze, rhonchorous, no rales, respiratory distress has improved since initial ED presentation, now off BiPAP. Heart: Tachycardic with regular rhythm; no gallop, rub audible. Abdomen: Soft, NTTP, mildly hyperactive bowel sounds, no obvious distention, no appreciated HSM. Extremities: No cyanosis, no clubbing, no marked peripheral edema, status post previous right BKA with stump well-appearing. Neurological: Patient awake, alert, oriented as noted, cognitive function intact; pupils equally reactive to light and accommodation, cranial nerves grossly normal, moving all 4 extremities, no focal deficits, strength severely global decrease secondary to acute presentation. Psychiatric: Affect appears fatigued, ill-appearing, respiratory compromise improved since initial ED presentation, no acute evidence of depressive or anxiety feelings but does have underlying history. Results Lab / Micro Data 01/15/24 01:05 01/15/24 01:05 Labs: Laboratory Results - last 24 hr 01/15/24 01:05: WBC 16.0 H, RBC 4.14 L, Hgb 10.4 L, Hct 34.6 L, MCV 83.6, MCH 25.1 L, MCHC 30.1 L, RDW Std Deviation 47.2 H, RDW Coeff of [place] 15.6 H, Plt Count 559 H, MPV 9.3, Immature Gran % (Auto) 0.800, Neut % (Auto) 74.5 H, Lymph % (Auto) 16.6 L, [place] % (Auto) 6.8, Eos % (Auto) 0.5, Baso % (Auto) 0.8, Absolute Neuts (auto) 11.9 H, Absolute Lymphs (auto) 2.65, Nucleated RBC % 0, Sodium 137, Potassium 4.6, Chloride 102, Carbon Dioxide 27.0, Anion Gap 8, BUN 23 H, Creatinine 1.19 H, Estim Creat Clear Calc 32.50, Est GFR (MDRD) Af Amer 58 L, Est GFR (MDRD) Non-Af 48 L, BUN/Creatinine Ratio 19.3, Glucose 153 H, Lactic Acid 1.1, Calcium 9.6, Magnesium 2.0, B-Natriuretic Peptide 60.9, Procalcitonin 0.06 Micro: Microbiology 01/15/24 01:08 Mucosa - Nose SARS-CoV-2, Influenza & RSV (PCR) - Final ABG Data ABG results: ABG 01/15/24 02:05 Specimen Type CHANTEL Sample Site Not entered O2 % 40.0 VBG pH 7.34 VBG pO2 21 L VBG HCO3 30 H VBG Total CO2 32 VBG O2 Sat (Calc) 30 L VBG Base Excess 4 H POC Mix VBG pCO2 Pt Tmp 55.2 H O2 Delivery Device BiPAP Clinical Comments Assessment & Plan Assessment/Plan (1) Pneumonia: (2) Acute and chronic respiratory failure with hypoxia: (3) Sepsis: PLAN: Plan The patient is a 68 y/o F w/ PMHx: Suspected Rheumatoid arthritis, CKD stage III unclear subtype per GFR trending, COPD/Asthma w/ Chronic Hypoxic Respiratory Failure (4L NC per most recent pulmonary note) with allergic rhinitis and bronchiectasis, Chronic anemia, RAUL, Hx TIA, Anxiety and Depression, GERD, HTN, HLD, Chronic back pain, Hypothyroidism status post previous thyroidectomy, CAD s/p PCI, Former tobacco use who presents to the [facility] ED on 01/15/24 with history of upper respiratory infection ongoing for the last 1 to 1-1/2 weeks becoming more short of breath prompting EMS call noted to be 65% on room air upon their arrival prompting transition to CPAP and transition to the hospital for evaluation. #1. Acute Sepsis (Febrile, Tachypnea, Leukocytosis, Pulmonary Source with Acute Respiratory Failure presentation) secondary to Acute Hypoxic Respiratory Failure on Chronic secondary to Acute on Chronic COPD exacerbation secondary to Acute RUL PNA w/ BL LE infiltrates versus atelectasis, thus Possible Multilobar PNA, Possible GN/GP organism although procalcitonin per ED normal range thus potentially Viral PNA: Will admit to PCU, will continue 30 cc/kg bolus to completion, maintain on oxygen with wean as tolerated to home oxygen supplementation, will utilize BiPAP as needed and nightly, continue ATC duonebs, PRN albuterol, IV methylprednisolone, maintain on BSA Cefepime, Azithromycin, Vanc with pending MRSA screen with de-escalation as able and again certainly could be viral given procalcitonin completely normal range but will be cautious and from prior CXR base infiltrates appear persistent, maintain HOB, IS parameters, will obtain sputum Cx, respiratory viral panel, PT/OT/case management consultation for discharge planning. #2. Chronic normocytic anemia: Admission hemoglobin 10.4, MCV 83.6, baseline hemoglobin primarily 10-11, continue to trend CBC. #3. Chronic Kidney Disease Stage III, unclear subtype per GFR trending: Admission BUN/Cr /.19, GFR 48, baseline renal function more recently primarily 1.0-1.4, last noted 09/16/23 creatinine 1.01, repeat BMP in AM. #4. Chronic thrombocytosis: Admission platelets 559, previous to this 11/05/23 platelets 494, continue to trend CBC. #5. Hypertension: Continue home regimen including metoprolol, Lasix, PRN hydralazine. #6. Hyperlipidemia: We will continue patient on statin therapy. #7. Hypothyroidism: Status post previous thyroidectomy with prior chart reported history of goiter, consider patient levothyroxine and liothyronine home regimen. #8. Chronic back pain: Noted previous visits with pain management, history of previous morphine pump and a stimulator, we will continue patient home baclofen, BuSpar, duloxetine, diclofenac home regimen. #9. Anxiety and depression/mood disorder/fibromyalgia: We will continue patient home Seroquel, low-dose Ativan as needed, Topamax, hydroxyzine, Cymbalta as well as BuSpar home regimen. #10. Allergic rhinitis: We will continue patient home montelukast home regimen. #11. CAD: Status post previous PCI, continue Plavix, statin, metoprolol home regimen, not on BASHIR/ARB. #12. Suspected Rheumatoid arthritis: We will continue patient home hydroxychloroquine regimen, unclear usage reason for medication and despite review of medical history no apparent diagnosis, thus suspect likely underlying rheumatoid arthritis but will clarify. #13. Former tobacco use: Encourage continued tobacco cessation. #14. RAUL: Given presentation we will continue BiPAP. Per records usually on CPAP with 4 L bled into it at night. #15. GERD: We will continue patient on PPI. #16. DVT prophylaxis: Lovenox. #17. CODE status: Patient notes that her would be her medical decision-maker if necessary. Discussed with patient her previous CODE STATUS which has been listed DNR-CCA, short-term intubation but went through again to be thorough the difference between FULL code, DNR-CCA and DNR-CC status. Following discussions about the differences in these status, requested full code which was confirmed especially given her previous CODE STATUS during prior admission. Advanced Care Planning Face to Face Time: 16 minutes. Charges/Coding Visit Charges Inpatient E&M: 07054 Init Hosp L3 Procedures Hospitalists Procedures: 67703 Advncd Care Plan 30 Min
[2024-01-15 04:19] LABS: Bacteria 4+ /hpf (None Seen); White Blood Cells 0-5 SEEN /hpf (0-5)
[2024-01-15] MEDS: Vancomycin HCl 750 MG in 0.9% Normal Saline (250mL Bag) 250 ML 250 MG IV (04:25)
[2024-01-15] MEDS: Ibuprofen 600 MG Tablet PO (04:27)
[2024-01-15] MEDS: Lactated Ringers 1,000 ML 999 ML IV (06:16)
--- NOTE | 2024-01-15 06:25 | PCM.RX.CS ---
Consult Antibiotic Management Pharmacy has been consulted to manage selected antibiotic: Vancomycin Type of Intervention Type of Consult: New start Labs Labs: Sodium 137 mmol/L (136-145) 01/15/24 01:05 Potassium 4.6 mmol/L (3.5-5.1) 01/15/24 01:05 Chloride 102 mmol/L (98-107) 01/15/24 01:05 Carbon Dioxide 27.0 mmol/L (21.0-32.0) 01/15/24 01:05 Anion Gap 8 (5-15) 01/15/24 01:05 BUN 23 mg/dL (7-18) H 01/15/24 01:05 Creatinine 1.19 mg/dL (0.55-1.02) H 01/15/24 01:05 Est GFR (MDRD) Af Amer 58 mL/min (>60) L 01/15/24 01:05 Est GFR (MDRD) Non-Af 48 mL/min (>60) L 01/15/24 01:05 BUN/Creatinine Ratio 19.3 RATIO (10-20) 01/15/24 01:05 Glucose 153 mg/dL (74-106) H 01/15/24 01:05 Microbiology Microbiology: Microbiology 01/15/24 03:45 Urine Catheter - Catheter Legionella Antigen - Final 01/15/24 01:08 Mucosa - Nose SARS-CoV-2, Influenza & RSV (PCR) - Final Dosing Weight Weight used for dosin.1 kg Estimated Creatinine Clearance Estimated Creatinine Clearance: 32.5 Pharmacy Plan for Drug Dosing Pharmacy Plan for Drug Dosing: Pharmacy Service will continue to monitor and adjust dosing as required. 750MG GIVEN IN ER. 750MG Q24H TROUGH PRIOR TO 3RD DOSE Follow-Up Labs Follow-Up Labs: Trough: Vancomycin Date/Time Labs Ordered Labs to be done on [date and time ordered]: 01/16 @ 3810
[2024-01-15] MEDS: 0.9% Normal Saline (1000mL) 1,000 ML 100 ML IV ×2 (06:55→18:19)
[2024-01-15] MEDS: LORazepam 1 MG Tablet PO ×3 (07:24→20:47)
[2024-01-15] MEDS: Azithromycin 500 MG in Dextrose 5%-Water (250mL Bag) 250 ML 250 MG IV (07:24)
[2024-01-15] MEDS: 0.9% Saline Lock 10 ML Syringe IV (07:24)
[2024-01-15 08:30] LABS: Absolute Lymphocyte Count 1.39 X10^3/uL (0.83-4.51); Absolute Neutrophil Count 9.5 X10^3/uL (2.0-7.7); Basophil# 0.05 X10^3/uL; Basophil% 0.4 % (0-1); Hematocrit 28.7 % (37-47); Hemoglobin 8.7 g/dL (12.0-15.0); Lymphocyte # 1.39 X10^3/ul (0.83-4.51); Lymphocyte % 11.5 % (19-41); Mean Corp Hgb Conc 30.3 g/dL (32-36); Mean Corpuscular Volume 85.7 fL (81-99); Mean Platelet Vol. 9.1 fl (6.2-12.0); Monocyte# 1.06 X10^3/uL; Monocyte% 8.7 % (0-10); NRBC Flagged by Analyzer 0.2 % (0-5); Neutrophil # 9.52 X10^3/uL (2.7-7.7); Neutrophil % 78.6 % (47-70); POSITIVE MORPHOLOGY YES; Platelet Count 414 K/mm3 (150-450); RBC Distribution Width CV 15.5 % (11.6-14.6); RBC Distribution Width SD 49.1 fl (35.1-43.9); Red Blood Count 3.35 M/mm3 (4.2-5.4); White Blood Count 12.1 K/mm3 (4.4-11.0)
[2024-01-15 08:42] LABS: Differential Indicated SCAN CRITERIA MET
[2024-01-15 09:02] LABS: Anisocytosis 1+
[2024-01-15 09:16] LABS: ALB/GLOB Ratio 0.5 RATIO (0.9-2.4); AST(SGOT) 12 U/L (15-37); Alanine Aminotransfer ALT/SGPT 11 U/L (13-56); Alkaline Phosphatase 75 U/L (45-117); Anion Gap 6 (5-15); BUN 20 mg/dL (7-18); Calcium,Total 7.9 mg/dL (8.5-10.1); Chloride 111 mmol/L (98-107); Creatinine, Serum 1.11 mg/dL (0.55-1.02); EST Glomerular Filtration Rate 52 mL/min (>60); Est Glom Filt Rate - Afr Amer 63 mL/min (>60); Estimated Creatinine Clearance 34.84 ml/min; Globulin 3.9 g/dL (2.2-4.2); Glucose 140 mg/dL (74-106); Potassium 3.9 mmol/L (3.5-5.1); Protein, Total 5.9 g/dL (6.4-8.2); Sodium Level 140 mmol/L (136-145)
[2024-01-15] MEDS: Liothyronine 5 MCG Tablet 25 MCG PO (10:34)
[2024-01-15] MEDS: busPIRone 5 MG Tablet 10 MG PO ×2 (10:34→20:51)
[2024-01-15] MEDS: Clopidogrel Bisulfate 75 MG Tablet PO (10:35)
[2024-01-15] MEDS: Triamcinolone Acetonide 0.1% Cream 15 gm 1 APPLIC TOPICAL ×2 (10:35→20:52)
[2024-01-15] MEDS: DULoxetine Hcl 60 MG Capsule PO ×2 (10:35→20:48)
[2024-01-15] MEDS: Baclofen 10 MG Tablet PO (10:35)
[2024-01-15] MEDS: Enoxaparin 40 MG/0.4 ML Syringe SC (10:35)
[2024-01-15] MEDS: Pantoprazole Sodium 40 MG Tablet PO ×2 (10:35→20:51)
[2024-01-15] MEDS: Cefepime HCl 2 GM in 0.9% Normal Saline (100mL MB+) 100 ML IV ×2 (10:35→20:48)
[2024-01-15] MEDS: Levothyroxine 75 MCG Tablet PO (10:38)
--- NOTE | 2024-01-15 10:50 | ECHOD_ITS ---
Reason For Study: Arrhythmia Procedure This was a 2D Doppler, Color Flow transthoracic echocardiogram. The study was technically difficult. Exam performed portable in ICU/CCU. Left Ventricle Normal LV size. The estimated ejection fraction is 60 %. No evidence for diastolic dysfunction. No regional wall motion abnormalities noted. Right Ventricle Normal RV size. Normal systolic function. Atria The left and right atria are normal. No doppler evidence for ASD. Mitral Valve There is no mitral valve stenosis. No mitral valve insufficiency. Tricuspid Valve There is no tricuspid stenosis. Unable to estimate RV systolic pressure due to inadequate jet, pulmonary artery pressure probably normal. Aortic Valve Trisinus/trileaflet aortic valve. Aortic sclerosis, no stenosis. There is no aortic stenosis. No aortic valve insufficiency. Pulmonic Valve There is no pulmonic valvular stenosis. No pulmonic valve insufficiency. Great Vessels Normal aortic root. Pericardium/Pleural No pericardial effusion. MMode/2D Measurements & Calculations LVIDd: 4.8 cm IVSd: 1.2 cm LAV(MOD-bp): 34.8 ml LVIDs: 3.1 cm LVPWd: 0.86 cm LAV(MOD-bp) Indexed: 24.5 ml/m2 FS: 35.0 % LAV(MOD-sp2): 37.9 ml LAV(MOD-sp4): 30.9 ml LA dimension(2D): 3.2 cm LA A4 area: 14.0 cm2 Time Measurements MV dec time: 0.14 sec Doppler Measurements & Calculations MV E max eloy: 91.2 cm/sec Lat Peak E' Eloy: 8.8 cm/sec Med Peak E' Eloy: 7.0 cm/sec MV A max eloy: 114.0 cm/sec E/E' lat: 10.4 E/E' med: 13.0 MV E/A: 0.80 MV V2 max: 119.4 cm/sec MV P1/2t max eloy: 88.8 cm/sec Ao V2 max: 149.1 cm/sec MV max P.7 mmHg MV P1/2t: 47.7 msec Ao max P.9 mmHg MV V2 mean: 79.5 cm/sec MV dec slope: 545.5 cm/sec2 MV mean P.9 mmHg MV V2 VTI: 23.2 cm MVA(P1/2t): 4.6 cm2 LV V1 max: 94.6 cm/sec LV V1 max P.6 mmHg ECHO/Echo Complete Interpretation Summary The estimated ejection fraction is 60 %. No evidence for diastolic dysfunction. Ordering Physician: Le Alba Performed By: Chad Noonan RCS
--- NOTE | 2024-01-15 14:13 | PCM.PROGNOTE ---
Subjective Subjective Patient seen and examined. She still admits to feeling a bit short of breath and has a cough. She remains on 6 L of oxygen. She usually wears 4 L at home. She did have a 7 beat run of V. tach today. Potassium and magnesium are within normal limits. Review of systems otherwise negative. Objective Data Objective Data Vital Signs: Vital Signs Temp Pulse Resp BP Pulse Ox O2 Del Method O2 Flow Rate 98.9 F 97 24 H 95/65 95 Nasal Cannula 6 01/15/24 10:11 01/15/24 11:07 01/15/24 13:14 01/15/24 10:11 01/15/24 11:07 01/15/24 13:14 01/15/24 13:14 FiO2 40 01/15/24 11:20 Oxygen Flow Rate (L/min) 6 Oxygen Delivery Method Nasal Cannula Weight: 112 lb 10.499 oz Body Mass Index (BMI) 23.5 Intake & Output: Intake and Output for Last 24 Hours 01/13/24 01/14/24 01/15/24 23:59 23:59 23:59 Intake Total 2840 / 2840 Output Total 300 / 300 Balance 2540 / 2540 Lab / Micro Data 01/15/24 08:18 01/15/24 08:18 Labs: Laboratory Results - last 24 hr 01/15/24 01:05: WBC 16.0 H, RBC 4.14 L, Hgb 10.4 L, Hct 34.6 L, MCV 83.6, MCH 25.1 L, MCHC 30.1 L, RDW Std Deviation 47.2 H, RDW Coeff of Genaro 15.6 H, Plt Count 559 H, MPV 9.3, Immature Gran % (Auto) 0.800, Neut % (Auto) 74.5 H, Lymph % (Auto) 16.6 L, Pratt % (Auto) 6.8, Eos % (Auto) 0.5, Baso % (Auto) 0.8, Absolute Neuts (auto) 11.9 H, Absolute Lymphs (auto) 2.65, Nucleated RBC % 0, Sodium 137, Potassium 4.6, Chloride 102, Carbon Dioxide 27.0, Anion Gap 8, BUN 23 H, Creatinine 1.19 H, Estim Creat Clear Calc 32.50, Est GFR (MDRD) Af Amer 58 L, Est GFR (MDRD) Non-Af 48 L, BUN/Creatinine Ratio 19.3, Glucose 153 H, Lactic Acid 1.1, Calcium 9.6, Magnesium 2.0, B-Natriuretic Peptide 60.9, Procalcitonin 0.06 01/15/24 03:45: Urine Color Yellow, Urine Clarity Clear, Urine pH 6.0, Ur Specific Sandstone 1.015, Urine Protein 15 H, Urine Glucose (UA) Normal, Urine Ketones Negative, Urine Occult Blood 10 H, Urine Nitrite Negative, Urine Bilirubin Negative, Urine Urobilinogen Normal, Ur Leukocyte Esterase 100 H, Urine RBC 0 SEEN, Urine WBC 0-5 SEEN, Ur Squamous Epith Cells 0 SEEN, Urine Bacteria 4+, Urine Mucus 0 SEEN 01/15/24 08:18: WBC 12.1 H, RBC 3.35 L, Hgb 8.7 L, Hct 28.7 L, MCV 85.7, MCH 26.0 L, MCHC 30.3 L, RDW Std Deviation 49.1 H, RDW Coeff of Genaro 15.5 H, Plt Count 414, MPV 9.1, Immature Gran % (Auto) 0.800, Neut % (Auto) 78.6 H, Lymph % (Auto) 11.5 L, Pratt % (Auto) 8.7, Eos % (Auto) 0.0, Baso % (Auto) 0.4, Absolute Neuts (auto) 9.5 H, Absolute Lymphs (auto) 1.39, Nucleated RBC % 0.2, Differential Comment , Anisocytosis 1+, Sodium 140, Potassium 3.9, Chloride 111 H, Carbon Dioxide 23.0, Anion Gap 6, BUN 20 H, Creatinine 1.11 H, Estim Creat Clear Calc 34.84, Est GFR (MDRD) Af Amer 63, Est GFR (MDRD) Non-Af 52 L, BUN/Creatinine Ratio 18.0, Glucose 140 H, Calcium 7.9 L, Total Bilirubin 0.30, AST 12 L, ALT 11 L, Alkaline Phosphatase 75, Total Protein 5.9 L, Albumin 2.0 L, Globulin 3.9, Albumin/Globulin Ratio 0.5 L Micro: Microbiology 01/15/24 08:37 Nasal Secretion MRSA (PCR) - Final 01/15/24 07:49 Sputum, Expectorated/Coughed Gram Stain - Final 01/15/24 05:35 Mucosa - Nasopharyngeal Respiratory Panel (PCR) - Final Rhinovirus 01/15/24 03:45 Urine Catheter - Catheter Streptococcus pneumoniae Antigen (M - Final 01/15/24 03:45 Urine Catheter - Catheter Legionella Antigen - Final 01/15/24 01:08 Mucosa - Nose SARS-CoV-2, Influenza & RSV (PCR) - Final ABG Data ABG results: ABG 01/15/24 02:05 Specimen Type CHANTEL Sample Site Not entered O2 % 40.0 VBG pH 7.34 VBG pO2 21 L VBG HCO3 30 H VBG Total CO2 32 VBG O2 Sat (Calc) 30 L VBG Base Excess 4 H POC Mix VBG pCO2 Pt Tmp 55.2 H O2 Delivery Device BiPAP Clinical Comments Radiography Diagnostic Testing: Radiology Impression Chest X-Ray 01/15/24 02:20 IMPRESSION: 1. Right upper lobe infiltrate consistent with pneumonia. 2. Bilateral lower lung atelectasis versus infiltrates. Electronically Signed: Noble Albarran DO at 2:57 EDT , Physical Exam Const alert and oriented x3 Constitutional Narrative: frail General Appearance: cooperative HEENT normocephalic and head/scalp atraumatic Eyes PERRL and EOMs intact bilaterally Neck no lymphadenopathy and supple Lymph Lymphatic: no lymphadenopathy noted Resp Resp Narrative: moderately diminished breath sounds bilaterally, mild wheezing, no crackles. On 6L of oxygen by nasal canula Cardio regular rate, regular rhythm, S1 normal heart sound, S2 normal heart sound and no murmurs GI normal to inspection, nondistended, normoactive bowel sounds, soft to palpation and non-tender Extremity normal capillary refill, no clubbing, cyanosis or edema and no calf tenderness General Extremity: no tenderness to palpation of joints or extremities Skin General Skin Exam: no breakdown Neuro CN's II-XII intact bilaterally, no focal motor deficits, no sensory deficits noted and deep tendon reflexes 2+ bilaterally Motor Exam: strength 5/5 throughout and general weakness Psych thought process normal, cooperative and affect normal Appearance: appropriate Assessment & Plan Assessment/Plan (1) Acute and chronic respiratory failure with hypoxia: (2) Pneumonia: (3) Sepsis: PLAN: Plan #Sepsis due to community acquired pneumonia and UTI CXR showed multifocal pneumonia. Wbc is 12.1. Procalcitonin was only 0.06 Urinalysis showed 4+ bacteria blood and urine cultures ordered on IV cefepime and azithromycin #Acute on chronic hypoxic respiratory failure due to community acquired pneumonia and uRTI from rhinovirus infection on 6L of oxygen; usually on 4L of oxygen. CXR showed multilobar pneumonia respiratory panel is positive for rhinovirus. COVID is negative. on IV cefepime and azithromycin breathing treatment with bronchodilators. Titrate oxygen to maintain sats >90% titrate oxygen to maintain sats >90% urine for strep and legionella were negative on IV solumedrol #Nonsustained ventricular tachycardia had a seven beat run of vtach. Potassium and magnesium are WNL 2D echo ordered. on beta jackie, will continue. #Hypertension: on metoprolol and lasix. IV hydralazine prn #Hyperlipidemia: on statin #Hypothyroidism:on synthroid. #Chronic back pain: has a spinal stimulator in situ. On baclofen, buspar and duloxetine #Anxiety and depression; on ativan prn, cymbalta and buspar. #CAD s/p PCI: on statin and plavix as well as statin. #Probable rheumatoid arthritis: on hydroxychloroquine #RAUL: on CPAP qhs #GERD: on PPI DVT prophylaxis: lovenox Charges/Coding Visit Charges Inpatient E&M: 50740 [facility] Hosp L3
--- NOTE | 2024-01-15 17:03 | CASEMGMT ---
RN CM underwear hemmer CM to room to meet with patient for initial transition planning/care coordination assessment. RN CM introduced self and role at [facility], pt voices understanding. Pt is A&O and is sitting up in chair in room with at bedside. Care providers, pharmacy, and demographics verified. LACE Strata: 2 PCP: Dr Michel Specialists: Maricarmen Acevedo NP (Hospital Clerk), Dr. Wilkerson (Ophthalmology), Dr Lopez for pain management -[facility] Preferred Pharmacy: [facility] Insurance:[facility] [employer] Prescription Benefit: Yes LNOK: Forrest Owen () Living Arrangements: Pt lives with her in a one story home with a basement and a ramp to enter the home. The home is handicap incorporated. ADLs/IADLs: Pt is non-ambulatory at baseline. Pt states she has a history of Rt foot amputation and she utilizes wheelchair for stand/pivot transfers @ home. Pt states she is independent with ADLs. Pt and share home mgnt tasks. Pt manages her own medications. Transportation: DME: Pt has a shower chair with a grab bar, raised toilet with grab bars, and a walker she uses in the basement. Pt has an electrical wheelchair at home. States she has O2 through [employer] and wears it 4L continuous and bleeds in via CPAP at night. Call placed to [facility] [place] and O2 orders confirmed. states he can bring in portable O2 tank @ discharge for pt to go home on. Pt has a BSC available, but does not use. HHC/SNF: Pt has been to a SNF in the past and has had HHC in the past. Discussed discharge plans. Pt declines wanting to go to a SNF and declines HHC at discharge. They were made aware if they change their mind once returning home, to discuss this w/her PCP. Discussed CCN and Pt Link and she declines these as well. Palliative Care: Discussed Palliative w/pt and and they are interested in a referral. Order received from Dr Alba and [facility]. Pt and given a Palliative info sheet to review as well. Pt and wish for pt to discharge home. They deny having other discharge needs/concerns. Plan: Home w/ and discharge plans in place. Follow for any increase in O2 needs. PT/OT evals pending. Palliative referral placed. Veronica BSN RN CM Will follow O2.
[2024-01-15] MEDS: Atorvastatin Calcium 80 MG Tablet PO (20:48)
[2024-01-15] MEDS: hydrOXYzine PAM 25 MG Capsule 50 MG PO (20:49)
[2024-01-15] MEDS: QUEtiapine 100 MG Tablet 200 MG PO (20:50)
[2024-01-15] MEDS: Montelukast 10 MG Tablet PO (20:50)
[2024-01-15] MEDS: Metoprolol Tartrate 25 MG Tablet PO (20:51)
[2024-01-15] MEDS: Topiramate 50 MG Tablet PO (20:52)
[2024-01-16] VITALS (10 sets, daily range): BP systolic 88–100; BP diastolic 68–75; PULSE 73–95; RESP 12–22; TEMP 36.6–37; O2SAT 93–97; BMI 28.5
[2024-01-16] MEDS: Liothyronine 5 MCG Tablet 25 MCG PO (04:51)
[2024-01-16] MEDS: 0.9% Normal Saline (1000mL) 1,000 ML 100 ML IV (04:51)
[2024-01-16] MEDS: LORazepam 1 MG Tablet PO ×3 (04:51→20:37)
[2024-01-16] MEDS: Vancomycin HCl 750 MG in 0.9% Normal Saline (250mL Bag) 250 ML 250 MG IV (04:51)
[2024-01-16] MEDS: Levothyroxine 50 MCG Tablet PO (04:51)
[2024-01-16 06:14] LABS: Absolute Lymphocyte Count 1.36 X10^3/uL (0.83-4.51); Absolute Neutrophil Count 9.6 X10^3/uL (2.0-7.7); Basophil# 0.02 X10^3/uL; Basophil% 0.2 % (0-1); Hematocrit 27.4 % (37-47); Hemoglobin 8.2 g/dL (12.0-15.0); Lymphocyte # 1.36 X10^3/ul (0.83-4.51); Lymphocyte % 11.5 % (19-41); Mean Corp Hgb Conc 29.9 g/dL (32-36); Mean Corpuscular Hgb 25.7 pg (27.0-32.0); Mean Corpuscular Volume 85.9 fL (81-99); Mean Platelet Vol. 9.3 fl (6.2-12.0); Monocyte# 0.73 X10^3/uL; Monocyte% 6.2 % (0-10); NRBC Flagged by Analyzer 0 % (0-5); Neutrophil % 81.4 % (47-70); POSITIVE MORPHOLOGY YES; Platelet Count 380 K/mm3 (150-450); RBC Distribution Width CV 15.7 % (11.6-14.6); RBC Distribution Width SD 49.6 fl (35.1-43.9); Red Blood Count 3.19 M/mm3 (4.2-5.4); White Blood Count 11.8 K/mm3 (4.4-11.0)
[2024-01-16 06:19] LABS: Differential Indicated SCAN CRITERIA MET
[2024-01-16] MEDS: Ipratropium/Albuterol Sulfate 3 ML AMPUL.NEB INHALATION ×4 (07:10→18:42)
[2024-01-16 07:15] LABS: Differential Comment SCANNED
[2024-01-16 07:27] LABS: Anion Gap 2 (5-15); BUN 18 mg/dL (7-18); BUN/Creat Ratio 25.5 RATIO (10-20); Calcium,Total 8.4 mg/dL (8.5-10.1); Chloride 115 mmol/L (98-107); Creatinine, Serum 0.71 mg/dL (0.55-1.02); EST Glomerular Filtration Rate 87 mL/min (>60); Est Glom Filt Rate - Afr Amer 106 mL/min (>60); Estimated Creatinine Clearance 55.36 ml/min; Glucose 125 mg/dL (74-106); Sodium Level 142 mmol/L (136-145)
[2024-01-16 07:48] LABS: Ferritin 71 ng/mL (8-252); Iron 16 ug/dL (50-170); Iron Binding Capacity,Total 299 ug/dL (250-450); PERCENT IRON SATURATION 5.4 % (15.0-55.0)
[2024-01-16] MEDS: busPIRone 5 MG Tablet 10 MG PO ×2 (08:15→20:38)
[2024-01-16] MEDS: Furosemide 20 MG Tablet 60 MG PO (08:16)
[2024-01-16] MEDS: DULoxetine Hcl 60 MG Capsule PO ×2 (08:16→20:38)
[2024-01-16] MEDS: Baclofen 10 MG Tablet PO (08:17)
[2024-01-16] MEDS: Clopidogrel Bisulfate 75 MG Tablet PO (08:18)
[2024-01-16] MEDS: Triamcinolone Acetonide 0.1% Cream 15 gm 1 APPLIC TOPICAL ×2 (08:18→20:41)
[2024-01-16] MEDS: Pantoprazole Sodium 40 MG in 0.9% Normal Saline (100mL MB+) 100 ML 330 MG IV ×2 (09:53→20:37)
--- NOTE | 2024-01-16 10:00 | PN_ITS ---
Subjective Subjective Patient seen and examined. She had no active complaints and says she was starting to feel better. She is on 6 L of oxygen. She denies any coughing, chest pain, wheezing, nausea or vomiting or any other symptoms. Review of systems otherwise negative. Her blood pressure is running low at 88/68 this morning. Her hemoglobin has dropped to 8.2 today. Objective Data Objective Data Vital Signs: Vital Signs Temp Pulse Resp BP Pulse Ox O2 Del Method O2 Flow Rate 98 F 88 18 88/68 L 95 Nasal Cannula 6 01/16/24 00:00 01/16/24 08:19 01/16/24 07:12 01/16/24 08:19 01/16/24 07:12 01/16/24 07:12 01/16/24 07:12 FiO2 40 01/16/24 02:31 Oxygen Flow Rate (L/min) 6 Oxygen Delivery Method Nasal Cannula Weight: 136 lb 10.986 oz Body Mass Index (BMI) 28.5 Intake & Output: Intake and Output for Last 24 Hours 01/14/24 01/15/24 01/16/24 23:59 23:59 23:59 Intake Total 3940 / 4140 1870 / 1870 Output Total 600 / 600 150 / 150 Balance 3340 / 3540 1720 / 1720 Lab / Micro Data 01/16/24 05:53 01/16/24 05:53 Labs: Laboratory Results - last 24 hr 01/16/24 05:53: WBC 11.8 H, RBC 3.19 L, Hgb 8.2 L, Hct 27.4 L, MCV 85.9, MCH 25.7 L, MCHC 29.9 L, RDW Std Deviation 49.6 H, RDW Coeff of Genaro 15.7 H, Plt Count 380, MPV 9.3, Immature Gran % (Auto) 0.700, Neut % (Auto) 81.4 H, Lymph % (Auto) 11.5 L, Hale % (Auto) 6.2, Eos % (Auto) 0.0, Baso % (Auto) 0.2, Absolute Neuts (auto) 9.6 H, Absolute Lymphs (auto) 1.36, Nucleated RBC % 0, Differential Comment SCANNED, Sodium 142, Potassium 4.0, Chloride 115 H, Carbon Dioxide 25.0, Anion Gap 2 L, BUN 18, Creatinine 0.71, Estim Creat Clear Calc 55.36, Est GFR (MDRD) Af Amer 106, Est GFR (MDRD) Non-Af 87, BUN/Creatinine Ratio 25.5 H, G lucose 125 H, Calcium 8.4 L, Iron 16 L, TIBC 299, Iron Saturation 5.4 L, Ferritin 71 Micro: Microbiology 01/15/24 08:37 Nasal Secretion MRSA (PCR) - Final 01/15/24 07:49 Sputum, Expectorated/Coughed Gram Stain - Final 01/15/24 05:35 Mucosa - Nasopharyngeal Respiratory Panel (PCR) - Final Rhinovirus 01/15/24 03:45 Urine Catheter - Catheter Streptococcus pneumoniae Antigen (M - Final 01/15/24 03:45 Urine Catheter - Catheter Legionella Antigen - Final 01/15/24 01:08 Mucosa - Nose SARS-CoV-2, Influenza & RSV (PCR) - Final Radiography Diagnostic Testing: Radiology Impression Chest X-Ray 01/15/24 02:20 IMPRESSION: 1. Right upper lobe infiltrate consistent with pneumonia. 2. Bilateral lower lung atelectasis versus infiltrates. Electronically Signed: Noble Albarran DO at 2:57 EDT Reading Location ID and State: [facility] / [place] Tel , Service support , Echocardiogram 01/15/24 10:50 Interpretation Summary The estimated ejection fraction is 60 %. No evidence for diastolic dysfunction. Ordering Physician: Le Alba Performed By: Chad Noonan RCS Physical Exam Const alert, oriented x3 and no apparent distress Constitutional Narrative: frail General Appearance: cooperative HEENT normocephalic and head/scalp atraumatic Eyes PERRL and EOMs intact bilaterally Neck no lymphadenopathy and supple Lymph Lymphatic: no lymphadenopathy noted Resp Resp Narrative: moderately diminished breath sounds bilaterally, mild wheezing, no crackles. On 6L of oxygen by nasal canula Cardio regular rate, regular rhythm, S1 normal heart sound, S2 normal heart sound and no murmurs GI normal to inspection, nondistended, normoactive bowel sounds, soft to palpation and non-tender Extremity normal capillary refill, no clubbing, cyanosis or edema and no calf tenderness General Extremity: no tenderness to palpation of joints or extremities Skin General Skin Exam: no breakdown Neuro CN's II-XII intact bilaterally, no focal motor deficits, no sensory deficits noted and deep tendon reflexes 2+ bilaterally Motor Exam: strength 5/5 throughout and general weakness Psych thought process normal, cooperative and affect normal Appearance: appropriate Assessment & Plan Assessment/Plan (1) Acute and chronic respiratory failure with hypoxia: (2) Pneumonia: (3) Sepsis: PLAN: Plan #Sepsis due to community acquired pneumonia and UTI * CXR showed multifocal pneumonia. * Wbc is slightly down to 11.8 today. * Urinalysis showed 4+ bacteria * blood and urine cultures ordered * on IV cefepime and azithromycin * #Acute on chronic hypoxic respiratory failure due to community acquired pneumonia and uRTI from rhinovirus infection * still on 6L of oxygen; usually on 4L of oxygen. * CXR showed multilobar pneumonia * respiratory panel is positive for rhinovirus. COVID is negative. * on IV cefepime and azithromycin * breathing treatment with bronchodilators. Titrate oxygen to maintain sats >90% * titrate oxygen to maintain sats >90% * urine for strep and legionella were negative * on IV solumedrol * #Nonsustained ventricular tachycardia * had a seven beat run of vtach yesterday, but this has not recurred. Potassium and magnesium are WNL * 2D echo showed EF of 60% with no evidence of diastolic dysfunction and no regional motion abnormalities noted. * on PO metoprolol 25mg bi * #Acute on chronic anemia * Hb is down to 8.2 today. Hb was 10.4 on admission and her baseline is between 10-11. * Iron profile requested and stool for occult blood ordered. Lovenox discontinued. P.o. pantoprazole switch to IV PPI twice daily. * Iron profile shows that iron levels have dropped to 16 from 26 in August 2023. Iron saturation is very low at 5.4 * Consult gastroenterology. * #Hypertension: on metoprolol and lasix. IV hydralazine prn #Hyperlipidemia: on statin #Hypothyroidism:on synthroid and liothyronine #Chronic back pain: has a spinal stimulator in situ. On baclofen, buspar and duloxetine #Anxiety and depression; on ativan prn, cymbalta and buspar. #CAD s/p PCI: on statin and plavix as well as statin. #Probable rheumatoid arthritis: on hydroxychloroquine #RAUL: on CPAP qhs #GERD: on PPI DVT prophylaxis: l Lovenox discontinued and patient now on SCDs. Charges/Coding Visit Charges Inpatient E&M: 69349 Subs Hosp L3
[2024-01-16] MEDS: Cefepime HCl 2 GM in 0.9% Normal Saline (100mL MB+) 100 ML IV ×2 (10:18→20:37)
[2024-01-16] MEDS: Azithromycin 500 MG in Dextrose 5%-Water (250mL Bag) 250 ML 250 MG IV (10:57)
[2024-01-16] MEDS: Topiramate 50 MG Tablet PO (20:38)
[2024-01-16] MEDS: QUEtiapine 100 MG Tablet 200 MG PO (20:38)
[2024-01-16] MEDS: Atorvastatin Calcium 80 MG Tablet PO (20:38)
[2024-01-16] MEDS: Metoprolol Tartrate 25 MG Tablet PO (20:38)
[2024-01-16] MEDS: hydrOXYzine PAM 25 MG Capsule 50 MG PO (20:38)
[2024-01-16] MEDS: Montelukast 10 MG Tablet PO (20:39)
[2024-01-17] VITALS (12 sets, daily range): BP systolic 101–121; BP diastolic 60–80; PULSE 76–100; RESP 12–27; TEMP 36.6–37; O2SAT 93–99; BMI 27.1
[2024-01-17 04:38] LABS: Absolute Lymphocyte Count 0.94 X10^3/uL (0.83-4.51); Absolute Neutrophil Count 11.9 X10^3/uL (2.0-7.7); Basophil# 0.04 X10^3/uL; Basophil% 0.3 % (0-1); Eosinophil# 0.05 X10^3/uL; Eosinophils% 0.4 % (0-5); Hematocrit 27.2 % (37-47); Hemoglobin 8.3 g/dL (12.0-15.0); Lymphocyte # 0.94 X10^3/ul (0.83-4.51); Lymphocyte % 6.8 % (19-41); Mean Corp Hgb Conc 30.5 g/dL (32-36); Mean Corpuscular Hgb 25.4 pg (27.0-32.0); Mean Corpuscular Volume 83.2 fL (81-99); Mean Platelet Vol. 9.3 fl (6.2-12.0); Monocyte# 0.74 X10^3/uL; Monocyte% 5.3 % (0-10); NRBC Flagged by Analyzer 0 % (0-5); Neutrophil # 11.91 X10^3/uL (2.7-7.7); Neutrophil % 85.5 % (47-70); Platelet Count 397 K/mm3 (150-450); RBC Distribution Width CV 15.7 % (11.6-14.6); RBC Distribution Width SD 47.8 fl (35.1-43.9); Red Blood Count 3.27 M/mm3 (4.2-5.4); White Blood Count 13.9 K/mm3 (4.4-11.0)
[2024-01-17 04:58] LABS: Vancomycin, Trough Level 10.1 ug/mL (5.0-15.0)
[2024-01-17 05:00] LABS: Anion Gap 4 (5-15); BUN 23 mg/dL (7-18); BUN/Creat Ratio 26.6 RATIO (10-20); Chloride 109 mmol/L (98-107); Creatinine, Serum 0.87 mg/dL (0.55-1.02); EST Glomerular Filtration Rate 69 mL/min (>60); Est Glom Filt Rate - Afr Amer 84 mL/min (>60); Glucose 126 mg/dL (74-106); Potassium 3.9 mmol/L (3.5-5.1); Sodium Level 140 mmol/L (136-145)
[2024-01-17] MEDS: Liothyronine 5 MCG Tablet 25 MCG PO (05:16)
[2024-01-17] MEDS: 0.9% Saline Lock 10 ML Syringe IV (05:16)
[2024-01-17] MEDS: LORazepam 1 MG Tablet PO ×3 (05:16→20:07)
[2024-01-17] MEDS: Vancomycin Trough/Random Due 1 LAB MC (05:16)
[2024-01-17] MEDS: Vancomycin IV 1,000 MG/200 ML BAG 200 MG IV (05:16)
[2024-01-17] MEDS: Levothyroxine 50 MCG Tablet PO (05:17)
--- NOTE | 2024-01-17 06:18 | PCM.RX.CS ---
Consult Antibiotic Management Pharmacy has been consulted to manage selected antibiotic: Vancomycin Type of Intervention Type of Consult: Follow-up Labs Labs: Sodium 140 mmol/L (136-145) 01/17/24 04:10 Potassium 3.9 mmol/L (3.5-5.1) 01/17/24 04:10 Chloride 109 mmol/L (98-107) H 01/17/24 04:10 Carbon Dioxide 27.0 mmol/L (21.0-32.0) 01/17/24 04:10 Anion Gap 4 (5-15) L 01/17/24 04:10 BUN 23 mg/dL (7-18) H 01/17/24 04:10 Creatinine 0.87 mg/dL (0.55-1.02) 01/17/24 04:10 Est GFR (MDRD) Af Amer 84 mL/min (>60) 01/17/24 04:10 Est GFR (MDRD) Non-Af 69 mL/min (>60) 01/17/24 04:10 BUN/Creatinine Ratio 26.6 RATIO (10-20) H 01/17/24 04:10 Glucose 126 mg/dL (74-106) H 01/17/24 04:10 Vancomycin Trough 10.1 ug/mL (5.0-15.0) 01/17/24 04:10 Microbiology Microbiology: Microbiology 01/15/24 07:49 Sputum, Expectorated/Coughed Gram Stain - Final 01/15/24 07:49 Sputum, Expectorated/Coughed Respiratory Culture - Preliminary GNR Poss Pseudomonas sp 01/15/24 03:45 Urine Catheter - Catheter Urine Culture - Preliminary GNR lactose pediatric dietician 01/15/24 08:37 Nasal Secretion MRSA (PCR) - Final 01/15/24 05:35 Mucosa - Nasopharyngeal Respiratory Panel (PCR) - Final Rhinovirus 01/15/24 03:45 Urine Catheter - Catheter Streptococcus pneumoniae Antigen (M - Final 01/15/24 03:45 Urine Catheter - Catheter Legionella Antigen - Final 01/15/24 01:08 Mucosa - Nose SARS-CoV-2, Influenza & RSV (PCR) - Final Goal Trough Goal Trough: 15-20 mcg/mL Pharmacy Plan for Drug Dosing Pharmacy Plan for Drug Dosing: Pharmacy Service will continue to monitor and adjust dosing as required. TROUGH 10.1 @ 23.5 HOURS. INCREASE TO 1GM Q24H AND FOLLOW UP TROUGH PRIOR TO 3RD DOSE Follow-Up Labs Follow-Up Labs: Trough: Vancomycin Date/Time Labs Ordered Labs to be done on [date and time ordered]: 01/18 @ 2968
[2024-01-17] MEDS: busPIRone 5 MG Tablet 10 MG PO ×2 (07:49→20:10)
[2024-01-17] MEDS: DULoxetine Hcl 60 MG Capsule PO ×2 (07:50→20:07)
[2024-01-17] MEDS: Clopidogrel Bisulfate 75 MG Tablet PO (07:50)
[2024-01-17] MEDS: Furosemide 20 MG Tablet 60 MG PO (07:50)
[2024-01-17] MEDS: Baclofen 10 MG Tablet PO (07:51)
[2024-01-17] MEDS: Metoprolol Tartrate 25 MG Tablet PO ×2 (07:51→20:08)
[2024-01-17] MEDS: Pantoprazole Sodium 40 MG in 0.9% Normal Saline (100mL MB+) 100 ML 330 MG IV ×2 (09:56→20:39)
--- NOTE | 2024-01-17 10:05 | PN_ITS ---
Subjective Subjective Patient seen and examined. SHe had no active complaints. She does sound a bit more congested, and is bringing up more sputum. Review of systems is otherwise negative. She is down to her baseline 4L of oxygen. Objective Data Objective Data Vital Signs: Vital Signs Temp Pulse Resp BP Pulse Ox O2 Del Method O2 Flow Rate 98.6 F 100 18 116/73 93 Nasal Cannula 4 01/17/24 04:54 01/17/24 07:51 01/17/24 05:20 01/17/24 07:51 01/17/24 05:20 01/17/24 08:15 01/17/24 08:15 FiO2 40 01/17/24 05:20 Oxygen Flow Rate (L/min) 4 Oxygen Delivery Method Nasal Cannula Weight: 129 lb 10.109 oz Body Mass Index (BMI) 27.1 Intake & Output: Intake and Output for Last 24 Hours 01/15/24 01/16/24 01/17/24 23:59 23:59 23:59 Intake Total 3940 / 4140 3095 / 3095 320 / 320 Output Total 600 / 600 1825 / 1825 200 / 200 Balance 3340 / 3540 1270 / 1270 120 / 120 Lab / Micro Data 01/17/24 04:10 01/17/24 04:10 Labs: Laboratory Results - last 24 hr 01/17/24 04:10: WBC 13.9 H, RBC 3.27 L, Hgb 8.3 L, Hct 27.2 L, MCV 83.2, MCH 25.4 L, MCHC 30.5 L, RDW Std Deviation 47.8 H, RDW Coeff of Genaro 15.7 H, Plt Count 397, MPV 9.3, Immature Gran % (Auto) 1.700 H, Neut % (Auto) 85.5 H, Lymph % (Auto) 6.8 L, [place] % (Auto) 5.3, Eos % (Auto) 0.4, Baso % (Auto) 0.3, Absolute Neuts (auto) 11.9 H, Absolute Lymphs (auto) 0.94, Nucleated RBC % 0, Sodium 140, Potassium 3.9, Chloride 109 H, Carbon Dioxide 27.0, Anion Gap 4 L, BUN 23 H, Creatinine 0.87, Estim Creat Clear Calc 50.90, Est GFR (MDRD) Af Amer 84, Est GFR (MDRD) Non-Af 69, BUN/Creatinine Ratio 26.6 H, Glucose 126 H, Calcium 9.0, Vancomycin Trough 10.1 Micro: Microbiology 01/15/24 03:45 Urine Catheter - Catheter Urine Culture - Final Klebsiella pneumoniae sp pneum 01/15/24 03:10 Blood Culture (Wb) - Anticubital Left Blood Culture - Preliminary No growth in 48 hours. 01/15/24 07:49 Sputum, Expectorated/Coughed Gram Stain - Final 01/15/24 07:49 Sputum, Expectorated/Coughed Respiratory Culture - Preliminary GNR Poss Pseudomonas sp 01/15/24 08:37 Nasal Secretion MRSA (PCR) - Final 01/15/24 05:35 Mucosa - Nasopharyngeal Respiratory Panel (PCR) - Final Rhinovirus 01/15/24 03:45 Urine Catheter - Catheter Streptococcus pneumoniae Antigen (M - Final 01/15/24 03:45 Urine Catheter - Catheter Legionella Antigen - Final 01/15/24 01:08 Mucosa - Nose SARS-CoV-2, Influenza & RSV (PCR) - Final Physical Exam Const alert, oriented x3 and no apparent distress Constitutional Narrative: frail General Appearance: cooperative HEENT normocephalic and head/scalp atraumatic Eyes PERRL and EOMs intact bilaterally Neck no lymphadenopathy and supple Lymph Lymphatic: no lymphadenopathy noted Resp Resp Narrative: moderately diminished breath sounds bilaterally, mild wheezing, coarse crackles bilaterally. On 4L of oxygen by nasal canula Cardio regular rate, regular rhythm, S1 normal heart sound, S2 normal heart sound and no murmurs GI normal to inspection, nondistended, normoactive bowel sounds, soft to palpation and non-tender Extremity normal capillary refill, no clubbing, cyanosis or edema and no calf tenderness General Extremity: no tenderness to palpation of joints or extremities Skin General Skin Exam: no breakdown Neuro CN's II-XII intact bilaterally, no focal motor deficits, no sensory deficits noted and deep tendon reflexes 2+ bilaterally Motor Exam: strength 5/5 throughout and general weakness Psych thought process normal, cooperative and affect normal Appearance: appropriate Assessment & Plan Assessment/Plan (1) Acute and chronic respiratory failure with hypoxia: (2) Pneumonia: (3) Sepsis: PLAN: Plan #Sepsis due to community acquired pneumonia and UTI * CXR showed multifocal pneumonia. * Wbc is slightly down to 11.8 today. * Urinalysis showed 4+ bacteria * blood and urine cultures ordered * on IV cefepime and azithromycin * #Acute on chronic hypoxic respiratory failure due to community acquired pneumonia and uRTI from rhinovirus infection * still on 6L of oxygen; usually on 4L of oxygen. * CXR showed multilobar pneumonia * respiratory panel is positive for rhinovirus. COVID is negative. * on IV cefepime and azithromycin * breathing treatment with bronchodilators. Titrate oxygen to maintain sats >90% * titrate oxygen to maintain sats >90% * urine for strep and legionella were negative * on IV solumedrol * #Nonsustained ventricular tachycardia * had a seven beat run of vtach once during this admission, but this has not recurred. Potassium and magnesium are WNL * 2D echo showed EF of 60% with no evidence of diastolic dysfunction and no regional motion abnormalities noted. * on PO metoprolol 25mg bid * #Acute on chronic anemia * Hb today is 8.3. Baseline is 10-11 * Iron profile requested and stool for occult blood ordered. Lovenox discontinued. P.o. pantoprazole switch to IV PPI twice daily. * Iron profile shows that iron levels have dropped to 16 from 26 in August 2023. Iron saturation is very low at 5.4 * GI consulted. Await recs * #Hypertension: on metoprolol and lasix. IV hydralazine prn #Hyperlipidemia: on statin #Hypothyroidism:on synthroid and liothyronine #Chronic back pain: has a spinal stimulator in situ. On baclofen, buspar and duloxetine #Anxiety and depression; on ativan prn, cymbalta and buspar. #CAD s/p PCI: on statin and plavix as well as statin. #Probable rheumatoid arthritis: on hydroxychloroquine #RAUL: on CPAP qhs #GERD: on PPI DVT prophylaxis: Lovenox discontinued and patient now on SCDs. Charges/Coding Visit Charges Inpatient E&M: 13634 Subs Hosp L3
--- NOTE | 2024-01-17 10:39 | EX.PCM.CON.G ---
HPI Consult Data Date of Consult: 01/17/24 HPI Narrative Reason for Consultation: Anemia HPI Narrative: TAJ BLANK, is a 68 F who presented to the emergency department on with feeling unwell for the past few weeks but this evening began with increased cough congestion and shortness of breath and therefore EMS was called. EMS states when they arrived she was awake and alert but had increased work of breathing and her room air pulse ox was 65%. She was placed on CPAP and brought to the hospital for evaluation. EMS reports they also gave her Solu-Medrol prior to arrival. Patient states she is predominantly been having trouble since past couple weeks. She also started having fevers and chills and again I am not quite sure when this happened and neither does she. She is unable to describe her diarrhea in detail but states she is having multiple episodes a day. She reports that the nausea and vomiting has decreased her oral intake and she is unclear if this was caused by her antibiotics or not. She is still coughing up yellowish looking sputum and has been wearing oxygen at 4 L at home. She typically wears oxygen at night bled into her CPAP at 4 L but is not on chronic oxygen during the day. L Vital signs on presentation showed a temperature of 97.4, heart rate of 125, blood pressure was 126/92, respiratory was 24, oxygen saturation was 65% on room air and she was therefore placed on BiPAP with improvement to her oxygenation to 96%. Her CBC showed a marked leukocytosis with a white count of 29.7 and a left shift with an 81.1% neutrophilia, chronic stable anemia with a hemoglobin of 8.3 and thrombocytosis with a platelet count of 754,000. Coags were normal. I saw her back in consultation in April 2023. At that time she was diagnosed with peptic ulcer disease in her duodenum. And counseled to see an allergy to worsening iron deficiency anemia. [facility] Medical History Chronic respiratory failure with hypoxia COPD (chronic obstructive pulmonary disease) Normocytic anemia Fibromyalgia RAUL (obstructive sleep apnea) Incisional hernia TIA (transient ischemic attack) Osteoporosis Osteoarthritis Thyroid disorder Diverticulitis History of heart attack Sleep apnea History of pneumonia History of bronchitis Asthma HTN (hypertension) Depression Anxiety Nausea and vomiting GERD (gastroesophageal reflux disease) Heart disease spinal stimulator Spinal stenosis Chronic back pain Hypothyroidism Home Medications ?Medication ?Instructions ?Recorded ?Last Taken ?Type atorvastatin 80 mg tablet 80 mg PO QHS cholesterol 06/01/13 05/25/14 History 80 MG clopidogrel 75 mg tablet 75 mg PO DAILY anti platelet 06/01/13 11/18/23 History lorazepam 1 mg tablet (Ativan) 1 mg PO BID-TID PRN Anxiety 11/17/18 Unknown History hydroxyzine HCl 50 mg tablet 50 mg PO QHS 12/01/18 Unknown History duloxetine 60 mg capsule,delayed 60 mg PO BID 06/19/20 Unknown History release furosemide 40 mg tablet 60 mg PO DAILY 08/23/22 Unknown History levothyroxine 50 mcg tablet 50 mcg PO DAILY 08/23/22 Unknown History liothyronine 5 mcg tablet 25 mcg PO DAILY 08/23/22 Unknown History topiramate 25 mg tablet 50 mg PO QHS 08/23/22 Unknown History triamcinolone acetonide 0.1 % 1 applic topical BID 08/23/22 Unknown History topical cream montelukast 10 mg tablet 10 mg PO QPM #90 tabs 03/11/23 Unknown Rx tiotropium bromide 2.5 2 inh inhalation DAILY #3 ea 03/11/23 Unknown Rx mcg/actuation mist for inhalation (Spiriva Respimat) pantoprazole 40 mg tablet,delayed 40 mg PO BID 30 days #60 tabs 05/06/23 Unknown Rx release baclofen 10 mg tablet 10 mg PO DAILY 10/09/23 Unknown History buspirone 7.5 mg tablet 10 mg PO BID 10/09/23 Unknown History cholecalciferol (vitamin D3) 25 25 mcg PO DAILY 10/09/23 Unknown History mcg (1,000 unit) capsule metoprolol tartrate 25 mg tablet 25 mg PO Q12H blood pressure 10/09/23 Unknown History azithromycin 250 mg tablet 250 mg PO QMWF #36 tabs 10/16/23 Unknown Rx albuterol sulfate 90 mcg/actuation 1 - 2 puff inhalation Q6H PRN PRN 10/27/23 Unknown Rx aerosol inhaler COPD #2 device acetaminophen 500 mg tablet 500 mg PO Q6H PRN pain 11/05/23 Unknown History quetiapine 200 mg tablet 200 mg PO QHS 11/05/23 Unknown History levothyroxine 75 mcg tablet 75 mcg PO .SATSUN 01/15/24 Unknown History mometasone-formoterol HFA 200 2 inh inhalation BID lungs #3 ea 01/15/24 Unknown Rx mcg-5 mcg/actuation aerosol inhaler (Dulera) Allergy/AdvReac Type Severity Reaction Status Date / Time cefaclor (From Ceclor) Allergy Itching Verified 12/02/23 11:03 clarithromycin Allergy Hives Verified 12/02/23 11:03 doxycycline Allergy Itching Verified 12/02/23 11:03 Penicillins Allergy Hives Verified 12/02/23 11:03 Sulfa (Sulfonamide Allergy Hives Verified 12/02/23 11:03 Antibiotics) biotin AdvReac Unknown Unknown Verified 12/02/23 11:03 zolpidem (From Ambien) AdvReac Unknown mental Verified 12/02/23 11:03 issues Family History Father Asthma Heart disease Grandmother Breast cancer Diabetes Mother Heart disease COPD (chronic obstructive pulmonary disease) Other Cancer Surgical History History of incisional hernia repair History of incisional hernia repair (~12/20/18) Hx of cholecystectomy History of esophagogastroduodenoscopy (EGD) (~07/2018) Previous back surgery S/P hysterectomy S/P carpal tunnel release S/P knee surgery S/P correction of deviated nasal septum Status post thyroidectomy H/O heart artery stent Status post amputation of right foot Social History (Updated 01/15/24 @ 04:[address] Vane Lisa MD) household members: spouse Smoking Status: Former smoker Tobacco: How many years used: 25 second hand exposure: Yes alcohol intake: never substance use type: does not use caffeine: Yes what type of physical activity do you participate in: none frequency: does not exercise ROS ROS Narrative Admission Review of Systems: CONSTITUTIONAL: No weight loss, + fever, chills, weakness or fatigue. HEENT: + Headache, sore throat, congestion, rhinorrhea. Eyes: No visual loss, blurred vision, double vision or yellow sclerae. Ears, Nose, Throat: No hearing loss, sneezing. SKIN: No rash or itching, lesions, wounds. CARDIOVASCULAR: No chest pain, chest pressure or chest discomfort, palpitations, edema, orthopnea, syncopal events. RESPIRATORY: + shortness of breath, cough, intermittent productive sputum, wheezing. No hemoptysis. GASTROINTESTINAL: + anorexia, nausea, vomiting, diarrhea. No abdominal pain, melena, BRBPR. GENITOURINARY: No dysuria, frequency, urgency or retention. NEUROLOGICAL: + Headache, No dizziness, syncope, paralysis, ataxia, numbness or tingling in the extremities, focal weakness, change in bowel or bladder control, seizure. MUSCULOSKELETAL: + muscle, back pain, joint pain or stiffness. HEMATOLOGIC: + Chronic anemia, easy bleeding/bruising. LYMPHATICS: No enlarged nodes. No history of splenectomy. PSYCHIATRIC: + History of anxiety and depression. ENDOCRINOLOGIC: + reports of sweating, cold or heat intolerance. No polyuria or polydipsia. ALLERGIES: + History of asthma, allergic rhinitis. Physical Exam Const alert, oriented x3 and no apparent distress Constitutional Narrative: frail General Appearance: cooperative HEENT normocephalic and head/scalp atraumatic Eyes PERRL and EOMs intact bilaterally Neck no lymphadenopathy and supple Lymph Lymphatic: no lymphadenopathy noted Resp Resp Narrative: moderately diminished breath sounds bilaterally, mild wheezing, coarse crackles bilaterally. On 4L of oxygen by nasal canula Cardio regular rate, regular rhythm, S1 normal heart sound, S2 normal heart sound and no murmurs GI normal to inspection, nondistended, normoactive bowel sounds, soft to palpation and non-tender Extremity normal capillary refill, no clubbing, cyanosis or edema and no calf tenderness General Extremity: no tenderness to palpation of joints or extremities Skin General Skin Exam: no breakdown Neuro CN's II-XII intact bilaterally, no focal motor deficits, no sensory deficits noted and deep tendon reflexes 2+ bilaterally Motor Exam: strength 5/5 throughout and general weakness Psych thought process normal, cooperative and affect normal Appearance: appropriate Lab / Micro Data 01/17/24 04:10 01/17/24 04:10 Labs: Laboratory Results - last 24 hr 01/17/24 04:10: WBC 13.9 H, RBC 3.27 L, Hgb 8.3 L, Hct 27.2 L, MCV 83.2, MCH 25.4 L, MCHC 30.5 L, RDW Std Deviation 47.8 H, RDW Coeff of Genaro 15.7 H, Plt Count 397, MPV 9.3, Immature Gran % (Auto) 1.700 H, Neut % (Auto) 85.5 H, Lymph % (Auto) 6.8 L, Edmunds % (Auto) 5.3, Eos % (Auto) 0.4, Baso % (Auto) 0.3, Absolute Neuts (auto) 11.9 H, Absolute Lymphs (auto) 0.94, Nucleated RBC % 0, Sodium 140, Potassium 3.9, Chloride 109 H, Carbon Dioxide 27.0, Anion Gap 4 L, BUN 23 H, Creatinine 0.87, Estim Creat Clear Calc 50.90, Est GFR (MDRD) Af Amer 84, Est GFR (MDRD) Non-Af 69, BUN/Creatinine Ratio 26.6 H, Glucose 126 H, Calcium 9.0, Vancomycin Trough 10.1 Micro: Microbiology 01/15/24 07:49 Sputum, Expectorated/Coughed Gram Stain - Final 01/15/24 07:49 Sputum, Expectorated/Coughed Respiratory Culture - Preliminary Pseudomonas aeruginosa 01/15/24 03:45 Urine Catheter - Catheter Urine Culture - Final Klebsiella pneumoniae sp pneum 01/15/24 03:10 Blood Culture (Wb) - Anticubital Left Blood Culture - Preliminary No growth in 48 hours. Assessment & Plan Assessment/Plan (1) Acute on chronic anemia: (2) Influenza A: PLAN: Plan 68-year-old female with shortness of breath and worsening weakness. She had a significant drop in hemoglobin down from 10-8. She has a history of peptic ulcer disease and her previous 0. CT abdomen pelvis with IV contrast showed thickening of gastric antrum and pylorus of unclear etiology, endoscopy recommended, diverticulosis without evidence of acute diverticulitis, otherwise unremarkable. She was previously transfused 2 units of packed red blood cells. -She should undergo an upper endoscopy to evaluate upper GI tract. If this study is negative then she will need a colonoscopy. She was explained alternatives, risk, benefits including not withstanding bleeding, infection, sepsis, perforation, need for return to . She will have an ASA of 3. Charges/Coding Visit Charges Inpatient E&M: 43577 Init Hosp L3
[2024-01-17] MEDS: Cefepime HCl 2 GM in 0.9% Normal Saline (100mL MB+) 100 ML IV ×2 (10:49→21:16)
[2024-01-17] MEDS: Ipratropium/Albuterol Sulfate 3 ML AMPUL.NEB INHALATION ×3 (11:44→19:25)
[2024-01-17] MEDS: hydrOXYzine PAM 25 MG Capsule 50 MG PO (20:08)
[2024-01-17] MEDS: Montelukast 10 MG Tablet PO (20:08)
[2024-01-17] MEDS: Atorvastatin Calcium 80 MG Tablet PO (20:11)
[2024-01-17] MEDS: QUEtiapine 100 MG Tablet 200 MG PO (20:11)
[2024-01-17] MEDS: Topiramate 50 MG Tablet PO (20:12)
[2024-01-17] MEDS: Albuterol 2.5 MG/3 ML VIAL.NEB. INHALATION (21:35)
[2024-01-18] VITALS (20 sets, daily range): BP systolic 111–159; BP diastolic 57–89; PULSE 69–94; RESP 12–34; TEMP 36.1–37.1; O2SAT 87–99; BMI 26.9
[2024-01-18] MEDS: MELATONIN 3 MG TABLET PO (01:12)
[2024-01-18] MEDS: 0.9% Saline Lock 10 ML Syringe IV (04:57)
[2024-01-18] MEDS: Vancomycin IV 1,000 MG/200 ML BAG 200 MG IV (04:58)
--- NOTE | 2024-01-18 05:00 | EKG12_ITS ---
Test Reason : AM EKG Blood Pressure : / mmHG Vent. Rate : 081 BPM Atrial Rate : 081 BPM P-R Int : 174 ms QRS Dur : 102 ms QT Int : 392 ms P-R-T Axes : 063 061 075 degrees QTc Int : 455 ms Normal sinus rhythm Nonspecific ST abnormality Abnormal ECG Electrical interference artifact Confirmed by Antony Jung ([id number]), restaurant expeditor SYLVIA NANCE ([id number]) on 01/18/2024 1:34:17 PM Referred By: Confirmed By:Antony Jung
[2024-01-18] MEDS: Ipratropium/Albuterol Sulfate 3 ML AMPUL.NEB INHALATION ×4 (07:46→19:05)
[2024-01-18 07:58] LABS: Absolute Lymphocyte Count 1.43 X10^3/uL (0.83-4.51); Absolute Neutrophil Count 11.2 X10^3/uL (2.0-7.7); Basophil# 0.05 X10^3/uL; Basophil% 0.4 % (0-1); Hemoglobin 8.6 g/dL (12.0-15.0); Lymphocyte # 1.43 X10^3/ul (0.83-4.51); Lymphocyte % 10.4 % (19-41); Mean Corp Hgb Conc 30.7 g/dL (32-36); Mean Corpuscular Hgb 25.1 pg (27.0-32.0); Mean Corpuscular Volume 81.6 fL (81-99); Mean Platelet Vol. 9.2 fl (6.2-12.0); Monocyte# 0.73 X10^3/uL; Monocyte% 5.3 % (0-10); NRBC Flagged by Analyzer 0 % (0-5); Neutrophil # 11.23 X10^3/uL (2.7-7.7); Neutrophil % 81.7 % (47-70); Platelet Count 428 K/mm3 (150-450); RBC Distribution Width CV 15.7 % (11.6-14.6); RBC Distribution Width SD 47.1 fl (35.1-43.9); Red Blood Count 3.43 M/mm3 (4.2-5.4); White Blood Count 13.7 K/mm3 (4.4-11.0)
[2024-01-18 08:35] LABS: Anion Gap 5 (5-15); BUN 22 mg/dL (7-18); BUN/Creat Ratio 27.6 RATIO (10-20); Calcium,Total 9.1 mg/dL (8.5-10.1); Chloride 105 mmol/L (98-107); EST Glomerular Filtration Rate 76 mL/min (>60); Est Glom Filt Rate - Afr Amer 92 mL/min (>60); Estimated Creatinine Clearance 53.87 ml/min; Glucose 123 mg/dL (74-106); Potassium 2.9 mmol/L (3.5-5.1); Sodium Level 141 mmol/L (136-145); Thyroid Stim Hormone (TSH) 0.155 uIU/mL (0.358-3.740)
[2024-01-18] MEDS: predniSONE 20 MG Tablet 60 MG PO (08:51)
[2024-01-18] MEDS: Metoprolol Tartrate 25 MG Tablet PO ×2 (08:51→19:51)
[2024-01-18] MEDS: Pantoprazole Sodium 40 MG in 0.9% Normal Saline (100mL MB+) 100 ML 330 MG IV ×2 (09:35→19:52)
--- NOTE | 2024-01-18 11:21 | NURSING ---
Pt to endo via RNs.
--- NOTE | 2024-01-18 11:53 | PCM.PRE.AN2 ---
ASA Classification* ASA Classification ASA Classification: 3 Assessment & Plan Anesthesia* Anesthesia Assessment Anesthesia Assessment: Discussed sedation and/or anesthesia options, risks, benefits, and alternatives with patient/parents/legal guardian/POA. Questions invited. The patient/parents/legal guardian/POA seems to understand and agrees to proceed with anesthesia plan. Reviewed the physical assessment, medical history, allergy history and patient home medications list prior to surgery/procedure/anesthetic and documented any changes. Performed airway and anesthesia risk assessments. Anesthesia Type Anesthesia Type: MAC History Source History Obtained from:: Patient and Chart Anesthesia Focused Assessment* Temperature: 97.0 F Pulse Rate: 80 Blood Pressure: 122/59 Respiratory Rate: 16 Pulse Ox: 94 Oxygen Delivery Method: Nasal Cannula (4 l/m) Fraction of Inspired Oxygen (FIO2): 40 Airway Assessment Mouth opens: >3 cm Mallampati Score: II Teeth Condition: Full (Upper plate is out) and Partial (Lower plate is out) Focused Labs Anesthesia Preop lab: CBC WBC 13.7 K/mm3 (4.4-11.0) H 01/18/24 07:00 RBC 3.43 M/mm3 (4.2-5.4) L 01/18/24 07:00 Hgb 8.6 g/dL (12.0-15.0) L 01/18/24 07:00 Hct 28.0 % (37-47) L 01/18/24 07:00 Plt Count 428 K/mm3 (150-450) 01/18/24 07:00 CHEMISTRY Potassium 2.9 mmol/L (3.5-5.1) L 01/18/24 07:00 Sodium 141 mmol/L (136-145) 01/18/24 07:00 Magnesium 2.0 mg/dL (1.6-2.6) 01/15/24 01:05 Phosphorus 1.5 mg/dL (2.5-4.9) L 05/04/23 05:47 BUN 22 mg/dL (7-18) H 01/18/24 07:00 Creatinine 0.80 mg/dL (0.55-1.02) 01/18/24 07:00 Glucose 123 mg/dL (74-106) H 01/18/24 07:00 POC Glucose 113 mg/dL (74-106) H 08/30/22 11:01 TSH 0.155 uIU/mL (0.358-3.740) L 01/18/24 07:00 COAG PT 14.2 SECONDS (11.7-14.9) 11/05/23 08:35 Pre-Assessment Diagnosis/Proposed Procedure Planned Operative Procedure(s): EGD Anesthesia History Anesthesia History - canvas repairer: Anesthesia History - canvas repairer Hx Hospitalization No: 2018 PANIC ATTACK/ 06/19/20 09:36 PNEUMONIA Any Problems With Anesthesia No 01/17/24 21:21 Cholinesterase deficiency No 05/04/23 21:35 You/Your Family Experience No 01/17/24 21:21 fever (hyperthermia) with Relationship Recent Exposure to Contagious Yes: +Rhino 01/17/24 21:21 Disease Does patient have nerve spinal stimulator 01/17/24 21:21 stimulator Patient instructed to have No 01/17/24 21:21 device shut off --Does patient have Pacemaker or ICD? When Was Last Pacemaker Check QUESTION #4 FULL TEXT: You/Your Family Experience fever (hyperthermia) with Anesthesia Last Oral Intake Last Oral intake: Last Oral Intake NPO since 00:01 01/17/24 21:21 Meds taken in AM with sips of water? Meds patient instructed to take am of surgery PONV PONV - canvas repairer: PONV - canvas repairer Female HX of Motion Sickness HX of N/V After Surgery Non-Smoker Duration of Surgery greater than 60 minutes Number of Risk Factors PONV Score Height & Weight Height & Weight: Anesthesia: Height & Weight Height 4 ft 10 in 01/18/24 10:02 Weight: 58.5 kg 01/18/24 10:02 Body Mass Index (BMI) 26.9 01/18/24 05:38 Respiratory Assessment Respiratory Assessment - canvas repairer: Respiratory Tract Infection Hx - canvas repairer Hx Respiratory Tract Infection No 01/17/24 21:21 STOP Sleep Apnea STOP Sleep Apnea - canvas repairer: STOP Sleep Apnea - canvas repairer Hx Hypertension Yes 01/15/24 16:16 Hx Sleep Apnea Yes 01/15/24 05:31 CPAP Yes 01/15/24 05:31 BIPAP No 01/15/24 05:31 Do you snore loudly (louder than talking or can be heard Do you often feel tired/ fatigued/ sleepy during daytime? Has anyone observed you stop breathing during sleep? STOP Results Positive 01/15/24 05:31 QUESTION #5 FULL TEXT : Do you snore loudly (louder than talking or can be heard through closed doors)? 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 Specify any problems Hx of Preganancy in last 3 N/A 01/15/24 05:31 Months Nurse Filling Out Transfusion TANNER 01/15/24 05:31 & Questions: Date: 01/15/24 01/15/24 05:31 Time: 05:33 01/15/24 05:31 Patient unable to answer at this time (ie. confused, unrespo /Reproduction History /Reproductive History - canvas repairer: /Reproductive Hx- canvas repairer Hx Now No 01/17/24 21:21 Gestational Age (in weeks): EDC: Hx Hx Para Hx Section SAB No 01/17/24 21:21 Active Medications Active Medications: Current Medications Generic Name Dose Route Start Last Admin Trade Name Freq PRN Reason Stop Dose Admin Acetaminophen 650 mg 01/15/24 05:24 Acetaminophen 325 Mg Tablet PO Q4H PRN PRN Fever, pain 1-10/10 Al Hydrox/Mg Hydrox/Simethicone 30 ml 01/15/24 05:24 Mag /Aluminum/Simeth Wch Udc 30 Ml Oral.Susp PO Q6H PRN PRN Gastric Burning Albuterol Sulfate 2.5 mg 01/15/24 05:24 01/17/24 21:35 Albuterol 2.5 Mg/3 Ml Vial.Neb. INHALATION 2.5 mg Q2H PRN PRN Administration Dyspnea, wheezing Albuterol/Ipratropium 3 ml 01/15/24 05:24 01/18/24 07:46 Ipratropium/Albuterol Sulfate 3 Ml Ampul.Neb INHALATION 3 ml Q4HWA.RT JESSICA Administration Atorvastatin Calcium 80 mg 01/15/24 22:00 01/17/24 20:11 Atorvastatin Calcium 80 Mg Tablet PO 80 mg QHS JESSICA Administration Baclofen 10 mg 01/15/24 10:00 01/18/24 09:16 Baclofen 10 Mg Tablet PO Not Given DAILY JESSICA Buspirone HCl 10 mg 01/15/24 10:00 01/18/24 09:16 Buspirone 5 Mg Tablet PO Not Given BID JESSICA Clopidogrel Bisulfate 75 mg 01/15/24 10:00 01/18/24 09:16 Clopidogrel Bisulfate 75 Mg Tablet PO Not Given DAILY JESSICA Duloxetine HCl 60 mg 01/15/24 10:00 01/18/24 09:16 Duloxetine Hcl 60 Mg Capsule PO Not Given BID JESSICA Furosemide 60 mg 01/15/24 10:00 01/18/24 09:16 Furosemide 20 Mg Tablet PO Not Given DAILY JESSICA Protocol Guaifenesin 20 ml 01/15/24 05:24 Guaifenesin 10 Ml Udc (200mg/10ml) PO Q4H PRN PRN COUGH Hydralazine HCl 10 mg 01/15/24 05:24 Hydralazine 20 Mg/Ml Vial IV Q4H PRN PRN SBP > 160 Protocol Hydroxyzine Pamoate 50 mg 01/15/24 22:00 01/17/24 20:08 Hydroxyzine Dominique 25 Mg Capsule PO 50 mg QHS JESSICA Administration Sodium Chloride 250 mls @ 15 mls/hr 01/15/24 06:31 IV .[id number] PRN Additional IVPB Infusion Sodium Chloride 250 mls @ 15 mls/hr 01/15/24 06:31 IV .[id number] PRN Saline Flush Pantoprazole Sodium 40 mg/ 110 mls @ 330 mls/hr 01/16/24 10:00 01/18/24 10:44 Sodium Chloride IV Infused Q12 JESSICA Infusion Lactated Ringer's 1,000 mls @ 15 mls/hr 01/18/24 12:00 IV .Q48H [facility] Levofloxacin 750 mg 01/19/24 10:00 Levofloxacin 750 Mg Tablet PO DAILY@0600 [facility] Levothyroxine Sodium 75 mcg 01/15/24 10:00 01/18/24 04:58 Levothyroxine 75 Mcg Tablet PO Not Given [id number] [facility] Levothyroxine Sodium 50 mcg 01/16/24 06:00 01/17/24 05:17 Levothyroxine 50 Mcg Tablet PO 50 mcg SuSa@0600 [facility] Administration Liothyronine Sodium 25 mcg 01/15/24 10:00 01/18/24 04:58 Liothyronine 5 Mcg Tablet PO Not Given DAILY@0600 [facility] Lorazepam 1 mg 01/15/24 06:00 01/18/24 04:58 Lorazepam 1 Mg Tablet PO Not Given TID [facility] Melatonin 3 mg 01/15/24 05:24 01/18/24 01:12 Melatonin 3 Mg Tablet PO 3 mg QHS PRN PRN Administration INSOMNIA Metoprolol Tartrate 25 mg 01/15/24 10:00 01/18/24 08:51 Metoprolol Tartrate 25 Mg Tablet PO 25 mg Q12 JESSICA Administration Protocol Montelukast Sodium 10 mg 01/15/24 21:00 01/17/24 20:08 Montelukast 10 Mg Tablet PO 10 mg QPM JESSICA Administration Ondansetron HCl 4 mg 01/15/24 05:24 Ondansetron 4 Mg/2 Ml Vial IV Q8H PRN PRN NAUSEA/VOMITING Pantoprazole Sodium 40 mg 01/15/24 10:00 01/15/24 20:51 Pantoprazole Sodium 40 Mg Tablet PO 40 mg BID JESSICA Administration Prednisone 60 mg 01/18/24 08:00 01/18/24 08:51 Prednisone 20 Mg Tablet PO 60 mg BREAKFAST JESSICA Administration Prochlorperazine Edisylate 5 mg 01/15/24 05:24 Prochlorperazine 10 Mg/2 Ml Vial IV Q4H PRN PRN Breakthrough Nausea/Vomiting Quetiapine Fumarate 200 mg 01/15/24 22:00 01/17/24 20:11 Quetiapine 100 Mg Tablet PO 200 mg QHS JESSICA Administration Senna/Docusate Sodium 2 tablet 01/15/24 05:24 Senna/Docusate Sodium 1 Tablet PO BID PRN PRN Constipation Sodium Chloride 10 - 40 ml 01/15/24 06:31 01/18/24 04:57 0.9% Saline Lock 10 Ml Syringe IV 10 ml UD PRN Administration SALINE FLUSH Topiramate 50 mg 01/15/24 22:00 01/17/24 20:12 Topiramate 50 Mg Tablet PO 50 mg QHS JESSICA Administration Triamcinolone Acetonide 1 applic 01/15/24 10:00 01/18/24 09:16 Triamcinolone Acetonide 0.1% Cream 15 Gm TOPICAL Not Given BID [facility] Protocol [facility] Medical History Chronic respiratory failure with hypoxia COPD (chronic obstructive pulmonary disease) Normocytic anemia Fibromyalgia RUAL (obstructive sleep apnea) Incisional hernia TIA (transient ischemic attack) Osteoporosis Osteoarthritis Thyroid disorder Diverticulitis History of heart attack Sleep apnea History of pneumonia History of bronchitis Asthma HTN (hypertension) Depression Anxiety Nausea and vomiting GERD (gastroesophageal reflux disease) Heart disease spinal stimulator Spinal stenosis Chronic back pain Hypothyroidism Home Medications ?Medication ?Instructions ?Recorded ?Last Taken ?Type atorvastatin 80 mg tablet 80 mg PO QHS cholesterol 06/01/13 05/25/14 History 80 MG clopidogrel 75 mg tablet 75 mg PO DAILY anti platelet 06/01/13 11/18/23 History lorazepam 1 mg tablet (Ativan) 1 mg PO BID-TID PRN Anxiety 11/17/18 Unknown History hydroxyzine HCl 50 mg tablet 50 mg PO QHS 12/01/18 Unknown History duloxetine 60 mg capsule,delayed 60 mg PO BID 06/19/20 Unknown History release furosemide 40 mg tablet 60 mg PO DAILY 08/23/22 Unknown History levothyroxine 50 mcg tablet 50 mcg PO DAILY 08/23/22 Unknown History liothyronine 5 mcg tablet 25 mcg PO DAILY 08/23/22 Unknown History topiramate 25 mg tablet 50 mg PO QHS 08/23/22 Unknown History triamcinolone acetonide 0.1 % 1 applic topical BID 08/23/22 Unknown History topical cream montelukast 10 mg tablet 10 mg PO QPM #90 tabs 03/11/23 Unknown Rx tiotropium bromide 2.5 2 inh inhalation DAILY #3 ea 03/11/23 Unknown Rx mcg/actuation mist for inhalation (Spiriva Respimat) pantoprazole 40 mg tablet,delayed 40 mg PO BID 30 days #60 tabs 05/06/23 Unknown Rx release baclofen 10 mg tablet 10 mg PO DAILY 10/09/23 Unknown History buspirone 7.5 mg tablet 10 mg PO BID 10/09/23 Unknown History cholecalciferol (vitamin D3) 25 25 mcg PO DAILY 10/09/23 Unknown History mcg (1,000 unit) capsule metoprolol tartrate 25 mg tablet 25 mg PO Q12H blood pressure 10/09/23 Unknown History azithromycin 250 mg tablet 250 mg PO QMWF #36 tabs 10/16/23 Unknown Rx albuterol sulfate 90 mcg/actuation 1 - 2 puff inhalation Q6H PRN PRN 10/27/23 Unknown Rx aerosol inhaler COPD #2 device acetaminophen 500 mg tablet 500 mg PO Q6H PRN pain 11/05/23 Unknown History quetiapine 200 mg tablet 200 mg PO QHS 11/05/23 Unknown History levothyroxine 75 mcg tablet 75 mcg PO .SATSUN 01/15/24 Unknown History mometasone-formoterol HFA 200 2 inh inhalation BID lungs #3 ea 01/15/24 Unknown Rx mcg-5 mcg/actuation aerosol inhaler (Dulera) Allergy/AdvReac Type Severity Reaction Status Date / Time cefaclor (From [facility]) Allergy Itching Verified 01/18/24 11:53 clarithromycin Allergy Hives Verified 01/18/24 11:53 doxycycline Allergy Itching Verified 01/18/24 11:53 Penicillins Allergy Hives Verified 01/18/24 11:53 Sulfa (Sulfonamide Allergy Hives Verified 01/18/24 11:53 Antibiotics) biotin AdvReac Unknown Unknown Verified 01/18/24 11:53 zolpidem (From Ambien) AdvReac Unknown mental Verified 01/18/24 11:53 issues Family History Father Asthma Heart disease Grandmother Breast cancer Diabetes Mother Heart disease COPD (chronic obstructive pulmonary disease) Other Cancer Surgical History History of incisional hernia repair History of incisional hernia repair (~12/20/18) Hx of cholecystectomy History of esophagogastroduodenoscopy (EGD) (~07/2018) Previous back surgery S/P hysterectomy S/P carpal tunnel release S/P knee surgery S/P correction of deviated nasal septum Status post thyroidectomy H/O heart artery stent Status post amputation of right foot Social History household members: spouse Smoking Status: Former smoker Tobacco: How many years used: 25 second hand exposure: Yes alcohol intake: never substance use type: does not use caffeine: Yes what type of physical activity do you participate in: none frequency: does not exercise Review of Systems (Anesthesia) ROS Narrative System reviewed and no additional complaints, except as documented.
[2024-01-18] MEDS: Lactated Ringers 1,000 ML 15 ML IV (12:03)
--- NOTE | 2024-01-18 12:30 | EGD_PTH ---
PATIENT: TAJ BLANK LOC: MS2 U#:[id number] AGE/SX: 68/F ROOM: [facility] [place]01[place]15/[address]: Dr. Cherelle Almendarez DO : 1955 BED: 1 DIS: 01/19/2024 SPEC #: [id number] RECD: 01/19/24 08:51 STATUS: MADHU REShmuel #: [id number] DAYDAY: 01/18/24 12:[address]: Sree Diggs DEPT: SURGICAL PATHOLOGY RECD BY: Thanh Wilson ENTERED: 01/19/24 10:35 SP TYPE: EGD BIOPSY [facility] DR: MD Dr. Cherelle Clifford DO Dr. Lisa Malys, DO Dr. Nana Yaa Koram, MD Tissues: Duodenum, NOS Procedures: Surgery Specimen Level IV HEADER OPERATION: EGD PRE-OP DIAGNOSIS: Anemia TISSUE SUBMITTED: Duodenal ulcer MICROSCOPIC DIAGNOSIS Duodenal ulcer, biopsy: Fragments of duodenal mucosa, no pathologic diagnosis. 01/20/2024 MICROSCOPIC DESCRIPTION Slides are reviewed. GROSS DESCRIPTION Received in fixative is one container labeled with the patient's name and designated Duodenal ulcer biopsy. The specimen consists of multiple irregular fragments of light benson soft tissue that in aggregate measure 0.6 x 0.5 x 0.1 cm. The specimen is totally submitted in one cassette. 01/19/2024 TC:4 CPT:65602
--- NOTE | 2024-01-18 13:56 | OP.EGD_ITS ---
Patient Name: Codi Owen Procedure Date: 01/18/2024 12:52 PM Date of : 1955 Age: 68 Procedure: Upper GI endoscopy Indications: Iron deficiency anemia Providers: Sree Diggs DO Medicines: Monitored Anesthesia Care Patient Profile: This is a 68 year old female. Refer to note in patient chart for documentation of history and physical. Patient has symptoms of acute nausea. Complications: No immediate complications. Procedure: Pre-Anesthesia Assessment: - Prior to the procedure, a History and Physical was performed, and patient medications and allergies were reviewed. The patient is competent. The risks and benefits of the procedure and the sedation options and risks were discussed with the patient. All questions were answered and informed consent was obtained. Patient identification and proposed procedure were verified by the physician in the pre-procedure area. Mental Status Examination: alert and oriented. Airway Examination: normal oropharyngeal airway and neck mobility. Respiratory Examination: clear to auscultation. CV Examination: normal. Prophylactic Antibiotics: The patient does not require prophylactic antibiotics. Prior Anticoagulants: The patient has taken no anticoagulant or antiplatelet agents except for NSAID medication. ASA Grade Assessment: II - A patient with mild systemic disease. After reviewing the risks and benefits, the patient was deemed in satisfactory condition to undergo the procedure. The anesthesia plan was to use monitored anesthesia care (MAC). Immediately prior to administration of medications, the patient was re-assessed for adequacy to receive sedatives. The heart rate, respiratory rate, oxygen saturations, blood pressure, adequacy of pulmonary ventilation, and response to care were monitored throughout the procedure. The physical status of the patient was re-assessed after the procedure. After obtaining informed consent, the endoscope was passed under direct vision. Throughout the procedure, the patient's blood pressure, pulse, and oxygen saturations were monitored continuously. The gastroscope was introduced through the mouth, and advanced to the second part of duodenum. The upper GI endoscopy was accomplished without difficulty. The patient tolerated the procedure well. Scope In: 1:50:24 PM Scope Out: 1:53:16 PM Total Procedure Duration Time 0 hours 2 minutes 52 seconds Findings: Non-severe esophagitis with no bleeding was found 35 to 39 cm from the incisors. Diffuse moderate inflammation characterized by erythema was found in the entire examined stomach. One non-bleeding linear duodenal ulcer with no stigmata of bleeding was found in the duodenal bulb. The lesion was 6 mm in largest dimension. Biopsies were taken with a cold forceps for histology. Verification of patient identification for the specimen was done. Estimated blood loss was minimal. Impression: - Non-severe non-erosive esophagitis with no bleeding. - Bile gastritis. - Non-bleeding duodenal ulcer with no stigmata of bleeding. Biopsied. Recommendation: - Return patient to [facility] for ongoing care. - Full liquid diet. - Consider colonoscopy when respiratory status is improved - Continue present medications. Procedure Code(s): --- Professional --- 20626, Esophagogastroduodenoscopy, flexible, transoral; with biopsy, single or multiple CPT copyright 2021 [employer]. All rights reserved. The codes documented in this report are preliminary and upon machine stemmer review may be revised to meet current compliance requirements. Sree Diggs DO 01/18/2024 1:56:29 PM This report has been signed electronically. Number of Addenda: 0 Note Initiated On: 01/18/2024 12:52 PM
--- NOTE | 2024-01-18 13:56 | OP.CCLET_ITS ---
01/18/2024 Chrystal Michel [address] [facility] [place] [address] [place] [address] Re : Upper GI endoscopy procedure for Codi Serranokb Dear Dr. Michel This procedure was performed on Thursday, January 18, 2024. My impressions and recommendations are as follows: Impressions : - Non-severe non-erosive esophagitis with no bleeding. - Bile gastritis. - Non-bleeding duodenal ulcer with no stigmata of bleeding. Biopsied. Recommendations : - Return patient to [facility] for ongoing care. - Full liquid diet. - Consider colonoscopy when respiratory status is improved - Continue present medications. My findings are described in the full procedure note, which is enclosed. If I can be of further assistance, please feel free to contact me at . Sincerely, Sree Friend, 01/18/2024 1:56:29 PM This report has been signed electronically.
--- NOTE | 2024-01-18 14:04 | PCM.POST.ANE ---
Anesthesia: Postop Eval I Current Vital Signs Temperature: 97.8 F Pulse Rate: 80 Blood Pressure: 111/76 Respiratory Rate: 16 Pulse Ox: 99 Oxygen Delivery Method: Nasal Cannula Oxygen Flow Rate (L/min): 4 Assessment Airway patent: Yes Spontaneous unlabored respirations: Yes Mental status: Awake nausea: No Vomiting: No Anesthesia Complication: No Fluid Hydration Crystalloid volume administer (ml): 400 Total IV fluid infused: 400 Progress Note Anesthesia document: Postop Eval 1 completed: Yes
--- NOTE | 2024-01-18 15:15 | CPS ---
done in [facility]
--- NOTE | 2024-01-18 16:06 | PCM.POSTANE2 ---
Anesthesia Postop Eval I Sum Postop Eval Completion status Anesthesia document: Postop Eval 1 completed: Yes Anesthesia Postop Eval I Summary Anesthesia Postop Eval I Summary: Anesthesia Postop Eval I: Assessment Summary Airway patent Yes 01/18/24 14:05 [email or web address] Spontaneous unlabored Yes 01/18/24 14:05 [email or web address] respirations Mental status Awake 01/18/24 14:05 [email or web address] nausea No 01/18/24 14:05 [email or web address] Vomiting No 01/18/24 14:05 [email or web address] Anesthesia Postop Eval I: Fluid Summary Crystalloid volume administer 400 01/18/24 14:05 [email or web address] (ml) Colloids volume administered ( ml) Blood Product volume administered (ml) Total IV fluid infused 400 01/18/24 14:05 [email or web address] Anesthesia Postop Eval I: Summary Notes Anesthesia Complication No 01/18/24 14:05 [email or web address] Anesthesia Complication Comment: Post-operative progress note Anesthesia: Postop Eval II Evaluation Mental status: Awake and Calm Pain Level: 0 nausea: No Vomiting: No Complications Anesthesia Complication: No
[2024-01-18] MEDS: Bisacodyl 5 MG Tablet 20 MG PO (16:07)
--- NOTE | 2024-01-18 16:16 | PCM.PN.HOSP ---
Reason for Visit Reason for Visit: Shortness of breath Subjective Subjective Patient is a 60-year-old female with chronic hypoxic respiratory (4 L nasal cannula dependent) who presented to the emergency department [facility] on 01/15/2024 with a chief complaint of shortness of breath. She reported that she felt like she was having an upper respiratory infection that have been ongoing for approximately 2 weeks. She complained of becoming more short of breath so she called the EMS and her oxygen saturation was noted to be 65% on room air however she is on 4 L at baseline. She was placed on CPAP initially at the time of admission and then transition to nasal cannula. She complained that she had initially some rhinorrhea, congestion, headache, sore throat, intermittent fevers and chills and a cough productive of green and yellow sputum. She complained of her dyspnea being worse with exertion and some intermittent nausea with emesis as well as loose stool. Vital signs on presentation showed a temperature of 101.2, heart rate 121, initial blood pressure was 246/192 with a repeat of 107/90. We highly suspect the initial was inaccurate. CBC on presentation showed a leukocytosis with a white count of 16, thrombocytosis with a platelet count of 559,000 and a left shift with a 74.5% neutrophilia. She was noted to have chronic stable anemia. VBG was done and showed a pH of 7.34. Chemistry panel was unremarkable other than some slight BUN and creatinine elevation at 23 and 1.19 respectively with her baseline being 0.7-0.9. Lactic acid was 1.1. BNP was 60.9. Chest x-ray showed a right upper lobe infiltrate and bilateral lower lung atelectasis versus infiltrates. Her respiratory viral panel was positive for rhinovirus and her sputum culture showed Pseudomonas. I am unclear if this is a pseudomonal pneumonia or if she is chronically colonized with Pseudomonas given her severe lung disease however with her infiltrate we will continue antibiotics. Sensitivities are reported out for amikacin, Zosyn, and cefepime but none for Levaquin. I have discussed with the pharmacy and they plan on sending it out to assess for Levaquin sensitivity. I will transition her to Levaquin today however to see how she tolerates it and to see if she continues to improve clinically. If she does then I think we can send her out with Levaquin orally if not we will need to consult ID and consider transition IV antibiotics at discharge. She was also noted to have anemia and a guaiac was checked. Guaiac was positive and gastroenterology was consulted. EGD was performed on 01/18/2024 and showed nonsevere nonerosive esophagitis with no bleeding, bile gastritis, and a nonbleeding duodenal ulcer with no stigmata of bleeding. Today the patient is feeling much better. Given no finding of significant bleed on EGD plan is for colonoscopy tomorrow per discussion with Dr. Diggs. Patient is back on her baseline oxygen so we will continue therapy as she is currently on and go from there. Objective Data Objective Data Vital Signs: Vital Signs Temp Pulse Resp BP Pulse Ox O2 Del Method O2 Flow Rate 97.0 F L 86 18 130/57 H 94 Nasal Cannula 4 01/18/24 14:10 01/18/24 15:00 01/18/24 15:00 01/18/24 14:10 01/18/24 14:10 01/18/24 14:10 01/18/24 14:10 FiO2 40 01/18/24 11:56 Oxygen Flow Rate (L/min) [ 4 AMBULATING with Oxygen #1] Oxygen Flow Rate (L/min) [At 4 REST with Oxygen] Oxygen Flow Rate (L/min) 4 Oxygen Delivery Method Nasal Cannula Weight: 58.5 kg Body Mass Index (BMI) 26.9 Intake & Output: Intake and Output for Last 24 Hours 01/16/24 01/17/24 01/18/24 23:59 23:59 23:59 Intake Total 3095 / 3095 740 / 740 323.75 / 323.75 Output Total 1825 / 1825 2325 / 2325 Balance 1270 / 1270 -1585 / -1585 323.75 / 323.75 Lab / Micro Data 01/18/24 07:00 01/18/24 07:00 Labs: Laboratory Results - last 24 hr 01/18/24 07:00: WBC 13.7 H, RBC 3.43 L, Hgb 8.6 L, Hct 28.0 L, MCV 81.6, MCH 25.1 L, MCHC 30.7 L, RDW Std Deviation 47.1 H, RDW Coeff of Genaro 15.7 H, Plt Count 428, MPV 9.2, Immature Gran % (Auto) 2.200 H, Neut % (Auto) 81.7 H, Lymph % (Auto) 10.4 L, [place] % (Auto) 5.3, Eos % (Auto) 0.0, Baso % (Auto) 0.4, Absolute Neuts (auto) 11.2 H, Absolute Lymphs (auto) 1.43, Nucleated RBC % 0, Sodium 141, Potassium 2.9 L, Chloride 105, Carbon Dioxide 31.0, Anion Gap 5, BUN 22 H, Creatinine 0.80, Estim Creat Clear Calc 53.87, Est GFR (MDRD) Af Amer 92, Est GFR (MDRD) Non-Af 76, BUN/Creatinine Ratio 27.6 H, Glucose 123 H, Calcium 9.1, TSH 0.155 L Micro: Microbiology 01/15/24 07:49 Sputum, Expectorated/Coughed Gram Stain - Final 01/15/24 07:49 Sputum, Expectorated/Coughed Respiratory Culture - Preliminary Pseudomonas aeruginosa 01/17/24 11:45 Stool Stool Occult Blood (ELFEGO) - Final Occult Blood Positive 01/15/24 03:45 Urine Catheter - Catheter Urine Culture - Final Klebsiella pneumoniae sp pneum 01/15/24 03:10 Blood Culture (Wb) - Anticubital Left Blood Culture - Preliminary No growth in 48 hours. 01/15/24 08:37 Nasal Secretion MRSA (PCR) - Final 01/15/24 05:35 Mucosa - Nasopharyngeal Respiratory Panel (PCR) - Final Rhinovirus 01/15/24 03:45 Urine Catheter - Catheter Streptococcus pneumoniae Antigen (M - Final 01/15/24 03:45 Urine Catheter - Catheter Legionella Antigen - Final 01/15/24 01:08 Mucosa - Nose SARS-CoV-2, Influenza & RSV (PCR) - Final Physical Exam Const alert, oriented x3, no apparent distress and well nourished; Negative for average body habitus or healthy appearing Constitutional Narrative: Overweight, upper middle-aged, white female who appears older than stated age, sitting up in bed, appears comfortable, nontoxic HEENT head/scalp atraumatic, moist oral mucous membranes and oropharynx normal HEENT Narrative: Mallampati 2, no thrush Eyes PERRL and EOMs intact bilaterally; Negative for conjunctivae normal Eyes Narrative: Conjunctiva pallor bilaterally with no scleral icterus Neck no lymphadenopathy and supple Neck Narrative: Trachea midline, no thyroid enlargement Resp normal respiratory effort, no retractions, no use of accessory muscles and clear to auscultation bilaterally Resp Narrative: Diminished at bases bilaterally with no noted adventitious sounds today, oxygenating well on her home oxygen of 4 L Auscultation: Negative for rales, rhonchi or wheezes Cardio regular rate, regular rhythm, S1 normal heart sound, S2 normal heart sound, no murmurs, no rub, no gallops and no clicks GI normal to inspection, nondistended, normoactive bowel sounds, soft to palpation and non-tender Extremity no clubbing, cyanosis or edema Extremity Narrative: Pedal pulses and radial pulses are 2+ Neuro oriented x3, moves all extremities and no focal motor deficits Speech: speech normal Psych affect normal Psych Narrative: Interacts appropriately, eye contact is good and patient is very pleasant Assessment & Plan Assessment/Plan (1) Pneumonia: (2) Acute and chronic respiratory failure with hypoxia: (3) UTI (urinary tract infection): PLAN: Plan Acute hypoxic respiratory failure on chronic hypoxic respiratory failure secondary to pseudomonal pneumonia/rhinovirus -Patient has been on cefepime and vancomycin-will discontinue and transition to Levaquin -Discussed with micro lab as sensitivities for quinolones are not yet back on sputum sample--> awaiting further sensitivities but will monitor clinically with transition -If not sensitive to Levaquin patient will need to be transition back to IV medication and ID will need to be involved -Pseudomonas may be colonization given her pulmonary history however with infiltrate I feel like we should treat her -Continue supportive care for rhinovirus -Discontinue IV steroids and transition to oral steroids daily with a slow taper at discharge -Continue pulmonary toilet -Patient is back to her 4 L nasal cannula--> fairly nonambulatory at baseline but will check with transitions to ensure stability and her oxygen saturations prior to discharge -Sepsis was ruled out as patient met no Sep 3 criteria at the time of admission Klebsiella UTI -Discontinue cefepime and vancomycin -Continue Levaquin we need a total of 7 to 10 days of treatment for complicated UTI Acute on chronic anemia -Baseline hemoglobin appears to be between 10 and 11 -10.4 on presentation but dropped subsequently so guaiac was ordered and iron studies obtained -Iron studies are consistent with iron deficiency -Guaiac was positive -EGD today 01/18/2024 which showed nonsevere nonerosive esophagitis with no bleeding, bile gastritis, and nonbleeding duodenal ulcer with no stigmata of recent bleeding with biopsies obtained -Colonoscopy planned for tomorrow with prep pending for today Hypokalemia -Potassium is 2.9 today -Will give 80 mEq and recheck in a.m. Wide-complex tachycardia -17 beat run during her hospital course -Echocardiogram performed and showed EF of 60% with no evidence of diastolic dysfunction and no regional wall motion abnormalities -Continue to monitor on telemetry -Continue p.o. metoprolol COPD -FEV1 is 68% predicted of -Continue prophylactic azithromycin at discharge -Patient is on chronic low-dose prednisone will need slow taper at discharge -Restart inhalers at discharge -Recommend outpatient follow-up with pulmonary medicine in 2 to 4 weeks after discharge -Chronically oxygen dependent at 4 L with goal saturations of 89 to 92%. Right middle lobe pulmonary nodule -Biopsy was performed and negative -Continue outpatient follow-up GERD -Continue p.o. PPI Chronic pain -Continue home medications -Patient has spinal stimulator Hypothyroidism -Continue home levothyroxine -Continue home liothyronine Essential hypertension/hyperlipidemia/history of TIA -Continue home metoprolol -Continue home Plavix Essential hypertension -Continue metoprolol -Continue Lasix -Continue as needed hydralazine Depression/anxiety -Continue home Topamax -Continue home Seroquel -Continue home BuSpar -continue home Ativan -Continue home Cymbalta DVT prophylaxis -SCDs -Chemoprophylaxis on hold due to GI bleeding CODE STATUS -Full code as verified on admission Charges/Coding Visit Charges Inpatient E&M: 38[address] [facility] Hosp L2
[2024-01-18] MEDS: Ondansetron 4 MG/2 ML Vial IV ×2 (17:14→23:50)
[2024-01-18] MEDS: Polyethylene Glycol 3350 BOWEL PREP PO (18:12)
[2024-01-18] MEDS: Potassium Chloride Oral Tablet 20 MEQ 80 MEQ PO (18:12)
[2024-01-18] MEDS: busPIRone 5 MG Tablet 10 MG PO (19:51)
[2024-01-18] MEDS: hydrOXYzine PAM 25 MG Capsule 50 MG PO (19:52)
[2024-01-18] MEDS: DULoxetine Hcl 60 MG Capsule PO (19:53)
[2024-01-18] MEDS: Montelukast 10 MG Tablet PO (20:05)
[2024-01-18] MEDS: QUEtiapine 100 MG Tablet 200 MG PO (20:05)
[2024-01-18] MEDS: Atorvastatin Calcium 80 MG Tablet PO (20:05)
[2024-01-18] MEDS: LORazepam 1 MG Tablet PO (20:05)
[2024-01-18] MEDS: Topiramate 50 MG Tablet PO (20:31)
[2024-01-19 02:00] VITALS: BP 114/55; PULSE 74; RESP 14; TEMP 36.1; O2SAT 98
[2024-01-19 02:38] VITALS: BMI 26.7
--- NOTE | 2024-01-19 02:51 | CPS ---
Patient having many restroom uses throughout the night due to CT drink prep. Bipap held for night time use for the night.
[2024-01-19 04:37] LABS: Absolute Lymphocyte Count 2.42 X10^3/uL (0.83-4.51); Absolute Neutrophil Count 14.8 X10^3/uL (2.0-7.7); Basophil# 0.07 X10^3/uL; Basophil% 0.4 % (0-1); Hematocrit 30.9 % (37-47); Hemoglobin 9.3 g/dL (12.0-15.0); Lymphocyte # 2.42 X10^3/ul (0.83-4.51); Lymphocyte % 12.9 % (19-41); Mean Corp Hgb Conc 30.1 g/dL (32-36); Mean Corpuscular Volume 83.1 fL (81-99); Mean Platelet Vol. 8.8 fl (6.2-12.0); Monocyte# 1.19 X10^3/uL; Monocyte% 6.3 % (0-10); NRBC Flagged by Analyzer 0 % (0-5); Neutrophil # 14.76 X10^3/uL (2.7-7.7); Neutrophil % 78.5 % (47-70); Platelet Count 413 K/mm3 (150-450); RBC Distribution Width CV 15.6 % (11.6-14.6); RBC Distribution Width SD 47.7 fl (35.1-43.9); Red Blood Count 3.72 M/mm3 (4.2-5.4); White Blood Count 18.8 K/mm3 (4.4-11.0)
[2024-01-19 05:00] LABS: Anion Gap 4 (5-15); BUN 16 mg/dL (7-18); BUN/Creat Ratio 18.8 RATIO (10-20); Calcium,Total 9.2 mg/dL (8.5-10.1); Chloride 107 mmol/L (98-107); Creatinine, Serum 0.85 mg/dL (0.55-1.02); EST Glomerular Filtration Rate 70 mL/min (>60); Est Glom Filt Rate - Afr Amer 85 mL/min (>60); Glucose 89 mg/dL (74-106); Potassium 3.5 mmol/L (3.5-5.1); Sodium Level 141 mmol/L (136-145)
[2024-01-19] MEDS: Ipratropium/Albuterol Sulfate 3 ML AMPUL.NEB INHALATION ×2 (07:23→10:45)
[2024-01-19 07:24] VITALS: PULSE 82; RESP 18; O2SAT 93
[2024-01-19 08:00] VITALS: BP 118/52; PULSE 80; RESP 16; TEMP 37; O2SAT 93
[2024-01-19] MEDS: busPIRone 5 MG Tablet 10 MG PO (08:29)
[2024-01-19] MEDS: predniSONE 20 MG Tablet 60 MG PO (08:30)
[2024-01-19] MEDS: Furosemide 20 MG Tablet 60 MG PO (08:31)
[2024-01-19] MEDS: DULoxetine Hcl 60 MG Capsule PO (08:32)
[2024-01-19 10:37] VITALS: O2SAT 91
[2024-01-19 10:45] VITALS: PULSE 78; PULSE 80; RESP 12; RESP 20; O2SAT 93
[2024-01-19 11:59] VITALS: BP 127/67; PULSE 90
[2024-01-19] MEDS: Metoprolol Tartrate 25 MG Tablet PO (11:59)
[2024-01-19] MEDS: levoFLOXacin 750 MG Tablet PO (12:03)
[2024-01-19] MEDS: Baclofen 10 MG Tablet PO (12:03)
[2024-01-19] MEDS: Clopidogrel Bisulfate 75 MG Tablet PO (12:04)
[2024-01-19] MEDS: Triamcinolone Acetonide 0.1% Cream 15 gm 1 APPLIC TOPICAL (12:04)
[2024-01-19] MEDS: Pantoprazole Sodium 40 MG in 0.9% Normal Saline (100mL MB+) 100 ML 330 MG IV (12:48)
--- NOTE | 2024-01-19 14:18 | NURSING ---
Patient called this nurse into room, states that if she is not getting scope today she is leaving- that she is as clear as she is going to be. Notified - patient advised that would like scope completed before leaving. This nurse called and spoke with Endo about patient wanting to leave- did not think it would be appropriate if patient was not clear. Spoke with patient- encouraged patient to have BM to assess level of clear. Endo Notified that patient last BM was yellow clear with yellow chunks. Endo states that they would call this nurse back with further instructions if able to have scope today. Patient notified- waiting to hear from endo regarding procedure. Patient spoke with staff on floor- told staff that she was no longer waiting- instructed by staff to wait in room for further paperwork. Upon arrival to room- patient, belongings and patient family off unit. notified of finding.
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
--- NOTE | 2024-01-19 14:45 | NURSING ---
Attempted to call Patient phone x 3, left message to return call. Attempted to call Forrest x 3 - no answer each time-unable to leave voicemail.
--- NOTE | 2024-01-19 14:52 | NURSING ---
Patient called back, spoke with the nurse. 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 Informed patient that the would still like patient to follow up with GI and colonoscopy- patient states I am 68 years old and I am not going to live forever. informed
--- NOTE | 2024-01-19 17:25 | EX.PCM.PN.GI ---
Subjective Subjective I was alerted that patient had taken her prep as ordered last night but she was not clear. We requested that she get enemas and that she take more prep as we need her colon as clean as possible in order to identify the source of her anemia. I was told by nursing staff that she did not want to wait until this evening to perform the procedure. I was told that she left the hospital AMA. Objective Data Objective Data Vital Signs: Vital Signs Temp Pulse Resp BP Pulse Ox O2 Del Method O2 Flow Rate 98.6 F 90 20 H 127/67 H 93 Nasal Cannula 6 01/19/24 08:00 01/19/24 11:59 01/19/24 10:45 01/19/24 11:59 01/19/24 10:45 01/19/24 09:07 01/19/24 10:37 FiO2 40 01/19/24 10:45 Oxygen Flow Rate (L/min) [ 4 AMBULATING with Oxygen #1] Oxygen Flow Rate (L/min) [At 4 REST with Oxygen] Oxygen Flow Rate (L/min) 6 Oxygen Delivery Method Nasal Cannula Weight: 127 lb 13.89 oz Body Mass Index (BMI) 26.7 Intake & Output: Intake and Output for Last 24 Hours 01/17/24 01/18/24 01/19/24 23:59 23:59 23:59 Intake Total 740 / 740 433.75 / 433.75 360 / 360 Output Total 2325 / 2325 Balance -1585 / -1585 433.75 / 433.75 360 / 360 Lab / Micro Data 01/19/24 04:30 01/19/24 04:30 Labs: Laboratory Results - last 24 hr 01/19/24 04:30: WBC 18.8 H, RBC 3.72 L, Hgb 9.3 L, Hct 30.9 L, MCV 83.1, MCH 25.0 L, MCHC 30.1 L, RDW Std Deviation 47.7 H, RDW Coeff of Genaro 15.6 H, Plt Count 413, MPV 8.8, Immature Gran % (Auto) 1.900 H, Neut % (Auto) 78.5 H, Lymph % (Auto) 12.9 L, [place] % (Auto) 6.3, Eos % (Auto) 0.0, Baso % (Auto) 0.4, Absolute Neuts (auto) 14.8 H, Absolute Lymphs (auto) 2.42, Nucleated RBC % 0, Sodium 141, Potassium 3.5, Chloride 107, Carbon Dioxide 30.0, Anion Gap 4 L, BUN 16, Creatinine 0.85, Estim Creat Clear Calc 50.50, Est GFR (MDRD) Af Amer 85, Est GFR (MDRD) Non-Af 70, BUN/Creatinine Ratio 18.8, Glucose 89, Calcium 9.2 Micro: Microbiology 01/15/24 07:49 Sputum, Expectorated/Coughed Gram Stain - Final 01/15/24 07:49 Sputum, Expectorated/Coughed Respiratory Culture - Preliminary Pseudomonas aeruginosa 01/17/24 11:45 Stool Stool Occult Blood (ELFEGO) - Final Occult Blood Positive 01/15/24 03:45 Urine Catheter - Catheter Urine Culture - Final Klebsiella pneumoniae sp pneum 01/15/24 03:10 Blood Culture (Wb) - Anticubital Left Blood Culture - Preliminary No growth in 48 hours. 01/15/24 08:37 Nasal Secretion MRSA (PCR) - Final 01/15/24 05:35 Mucosa - Nasopharyngeal Respiratory Panel (PCR) - Final Rhinovirus 01/15/24 03:45 Urine Catheter - Catheter Streptococcus pneumoniae Antigen (M - Final 01/15/24 03:45 Urine Catheter - Catheter Legionella Antigen - Final 01/15/24 01:08 Mucosa - Nose SARS-CoV-2, Influenza & RSV (PCR) - Final Physical Exam Const alert, oriented x3, no apparent distress, no limitations and well nourished; Negative for average body habitus or healthy appearing General Appearance: cooperative, comfortable, well kempt and well developed Orientation / Consciousness: awake, oriented to person, oriented to place and oriented to time Exam Limitations: no limitations Nutritional Appearance: overweight HEENT normocephalic, head/scalp atraumatic and moist oral mucous membranes HEENT Narrative: no thrush Eyes PERRL and EOMs intact bilaterally; Negative for conjunctivae normal Eyes Narrative: Conjunctiva pallor bilaterally with no scleral icterus Neck no lymphadenopathy and supple Resp normal respiratory effort, no retractions, no use of accessory muscles and clear to auscultation bilaterally Resp Narrative: Diminished at bases bilaterally with no noted adventitious sounds today, continues to oxygenating well on her home oxygen of 4 L Auscultation: Negative for rales, rhonchi or wheezes Cardio regular rate, regular rhythm, S1 normal heart sound, S2 normal heart sound, no murmurs, no rub, no gallops and no clicks GI normal to inspection, nondistended, normoactive bowel sounds, soft to palpation and non-tender Extremity no clubbing, cyanosis or edema Extremity Narrative: Pedal pulses and radial pulses are 2+ Skin no wounds, skin turgor normal and no jaundice Neuro oriented x3, moves all extremities and no focal motor deficits Speech: speech normal Motor Exam: general weakness Psych Mood & Affect: anxious Assessment & Plan Assessment/Plan (1) Pneumonia: (2) Acute and chronic respiratory failure with hypoxia: (3) UTI (urinary tract infection): PLAN: Plan Acute on chronic anemia -Baseline hemoglobin appears to be between 10 and 11 -10.4 on presentation but dropped subsequently so guaiac was ordered and iron studies obtained -Iron studies are consistent with iron deficiency -Guaiac was positive -EGD today 01/18/2024 which showed nonsevere nonerosive esophagitis with no bleeding, bile gastritis, and nonbleeding duodenal ulcer with no stigmata of recent bleeding with biopsies obtained -Colonoscopy was planned for today. However patient left AMA. Charges/Coding Visit Charges Inpatient E&M: 61506 Subs Hosp L3
== END 2024-01-19 14:20 | disposition left against medical advice (07) | DRG 177 ==
LOC: ED 04:03 → PCU 04:52 → ICU 11:47 → MS2 01-19 06:31
PROVIDERS: Internal Medicine Gastroenterology; Student in an Organized Health Care Education/Training Program; Admitting Provider Family Medicine; Emergency Provider Emergency Medicine; PCP Family Medicine; Visit Provider Internal Medicine
PROC: 0DJ08ZZ Inspection of Upper Intestinal Tract, Via Natural or Artificial Opening Endoscopic (ICD-10-PCS; CPT 43235; principal; 2024-01-18 12:25)
DX: J15.1 Pneumonia due to Pseudomonas (principal); J96.21 Acute and chronic respiratory failure with hypoxia; I47.29 Other ventricular tachycardia; J47.0 Bronchiectasis with acute lower respiratory infection; J44.0 Chronic obstructive pulmonary disease with (acute) lower respiratory infection; N39.0 Urinary tract infection, site not specified; K26.9 Duodenal ulcer, unspecified as acute or chronic, without hemorrhage or perforation; N18.30 Chronic kidney disease, stage 3 unspecified; M06.9 Rheumatoid arthritis, unspecified; E89.0 Postprocedural hypothyroidism; I12.9 Hypertensive chronic kidney disease with stage 1 through stage 4 chronic kidney disease, or unspecified chronic kidney disease; D50.9 Iron deficiency anemia, unspecified; F32.A Depression, unspecified; I25.10 Atherosclerotic heart disease of native coronary artery without angina pectoris; G47.33 Obstructive sleep apnea (adult) (pediatric); M79.7 Fibromyalgia; J30.9 Allergic rhinitis, unspecified; E78.5 Hyperlipidemia, unspecified; K57.90 Diverticulosis of intestine, part unspecified, without perforation or abscess without bleeding; K29.70 Gastritis, unspecified, without bleeding; E87.6 Hypokalemia; K21.00 Gastro-esophageal reflux disease with esophagitis, without bleeding; R19.7 Diarrhea, unspecified; F41.9 Anxiety disorder, unspecified; D75.839 Thrombocytosis, unspecified; M54.9 Dorsalgia, unspecified; J06.9 Acute upper respiratory infection, unspecified; B97.89 Other viral agents as the cause of diseases classified elsewhere; G89.29 Other chronic pain; B96.1 Klebsiella pneumoniae [K. pneumoniae] as the cause of diseases classified elsewhere; Z88.0 Allergy status to penicillin; Z88.3 Allergy status to other anti-infective agents; Z22.39 Carrier of other specified bacterial diseases; Z11.52 Encounter for screening for COVID-19; Z99.81 Dependence on supplemental oxygen; Z79.1 Long term (current) use of non-steroidal anti-inflammatories (NSAID); Z79.51 Long term (current) use of inhaled steroids; Z79.890 Hormone replacement therapy; Z79.899 Other long term (current) drug therapy; Z87.891 Personal history of nicotine dependence
CPT/HCPCS: 36415; 71045; 80048; 80053; 80202; 81001; 82274; 82728; 82803; 83540; 83550; 83605; 83735; 83880; 84145; 84443; 85025; 87040; 87070; 87077; 87086; 87088; 87184; 87186; 87205; 87449; 87631; 87633; 87641; 88305; 93005; 93306; 94002; 94003; 94640; 94668; 94762; 97110; 97161; 97166; 97530; 99252; 99285; J2185; J7030; J7050; J7120; P9612; Q9957; A4216; G0463; J2405

== ENCOUNTER → 2024-02-01 | Outpatient (CLI) | payer MEDICARE, SELFPAY ==
[2024-02-01 15:46] LABS: Absolute Lymphocyte Count 0.98 X10^3/uL (0.83-4.51); Absolute Neutrophil Count 11.2 X10^3/uL (2.0-7.7); Basophil# 0.03 X10^3/uL; Basophil% 0.2 % (0-1); Eosinophil# 0.03 X10^3/uL; Eosinophils% 0.2 % (0-5); Hematocrit 32.9 % (37-47); Hemoglobin 9.8 g/dL (12.0-15.0); Lymphocyte # 0.98 X10^3/ul (0.83-4.51); Lymphocyte % 7.9 % (19-41); Mean Corp Hgb Conc 29.8 g/dL (32-36); Mean Corpuscular Hgb 24.9 pg (27.0-32.0); Mean Corpuscular Volume 83.5 fL (81-99); Mean Platelet Vol. 9.4 fl (6.2-12.0); Monocyte# 0.11 X10^3/uL; Monocyte% 0.9 % (0-10); NRBC Flagged by Analyzer 0 % (0-5); Neutrophil # 11.19 X10^3/uL (2.7-7.7); Neutrophil % 90.3 % (47-70); POSITIVE MORPHOLOGY YES; Platelet Count 633 K/mm3 (150-450); RBC Distribution Width CV 17.5 % (11.6-14.6); RBC Distribution Width SD 53.3 fl (35.1-43.9); Red Blood Count 3.94 M/mm3 (4.2-5.4); White Blood Count 12.4 K/mm3 (4.4-11.0)
[2024-02-01 15:52] LABS: Differential Indicated SCAN CRITERIA MET
[2024-02-01 16:15] LABS: BNP,B-Type NATRIURETIC PEPTIDE 29.7 pg/mL (0-100)
[2024-02-01 16:36] LABS: Differential Comment SCANNED; Reactive Lymphocyte RARE
[2024-02-01 18:25] LABS: ALB/GLOB Ratio 0.7 RATIO (0.9-2.4); AST(SGOT) 24 U/L (15-37); Alanine Aminotransfer ALT/SGPT 31 U/L (13-56); Albumin, Serum 2.9 g/dL (3.2-5.0); Alkaline Phosphatase 90 U/L (45-117); Anion Gap 11 (5-15); BUN 19 mg/dL (7-18); BUN/Creat Ratio 14.5 RATIO (10-20); Chloride 101 mmol/L (98-107); Creatinine, Serum 1.31 mg/dL (0.55-1.02); EST Glomerular Filtration Rate 43 mL/min (>60); Est Glom Filt Rate - Afr Amer 52 mL/min (>60); Globulin 4.2 g/dL (2.2-4.2); Glucose 123 mg/dL (74-106); Potassium 4.5 mmol/L (3.5-5.1); Protein, Total 7.1 g/dL (6.4-8.2); Sodium Level 135 mmol/L (136-145)
== END | disposition home or self-care (01) ==
LOC: BFHLAB 13:04
PROVIDERS: PCP Family Medicine; Referring Provider Family Medicine; Visit Provider Family Medicine
DX: D64.9 Anemia, unspecified (principal); I50.33 Acute on chronic diastolic (congestive) heart failure; K92.1 Melena; E03.9 Hypothyroidism, unspecified; Z51.81 Encounter for therapeutic drug level monitoring
CPT/HCPCS: 36415; 80053; 83880; 84443; 85025

== ENCOUNTER 2024-02-05 09:05 | Outpatient (CLI) | payer MEDICARE, SELFPAY ==
[2024-02-05 09:28] VITALS: BP 112/57; PULSE 69; RESP 16; TEMP 36.6; O2SAT 93
[2024-02-05] MEDS: DENOSUMAB 60 MG/ML SC (09:30)
== END 2024-02-05 23:59 | disposition home or self-care (01) ==
LOC: MEDOUTP 09:05
PROVIDERS: PCP Family Medicine; Referring Provider Family Medicine; Visit Provider Family Medicine
DX: M81.0 Age-related osteoporosis without current pathological fracture (principal)
CPT/HCPCS: 96372; J0897

== ENCOUNTER 2024-02-09 07:58 | Observation (INO) | payer MEDICARE, SELFPAY ==
[2024-02-09] VITALS (11 sets, daily range): BP systolic 110–137; BP diastolic 63–78; PULSE 98–111; RESP 12–21; TEMP 36.4–36.6; O2SAT 94–98; BMI 28.4; BMI 25.9
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
--- NOTE | 2024-02-09 08:48 | CT_ITS ---
INDICATION: trauma EXAMINATION: CT BRAIN - CT Head or Brain W/O Contrast Injection TECHNIQUE: Multiple axial images were obtained of the head without intravenous contrast. The protocol utilizes one or more of the following dose reduction techniques: automated exposure control, adjustment of mA and/or kV according to patient size,and/or use of iterative reconstruction technique. IV Contrast dosage and agent: None. RADIATION DOSAGE (If Supplied By Facility): CTDIvol = ( 44.99 ) mGy, DLP = ( 796.11 ) mGycm COMPARISON: March 29, 2023 FINDINGS: BRAIN PARENCHYMA: No intra- or extra-axial hemorrhage. There are few foci of low attenuation within the white matter of the cerebral hemispheres, a nonspecific finding most commonly reflecting small vessel ischemia. No evidence of acute infarct. No intracranial mass or mass effect. There is preservation of the wilder/white matter interface. Posterior fossa structures are unremarkable. CSF SPACES: Appropriate for age. No hydrocephalus. Basal cisterns are patent. CALVARIUM, SKULL BASE, PARANASAL SINUSES AND MASTOID AIR CELLS: There is partial opacification of the ethmoid and right maxillary sinuses consistent with a history of sinusitis. No discrete lytic or blastic abnormalities. ORBITS: Both globes, extraocular muscles, optic nerves and retrobulbar fat appear unremarkable. ASPECTS Score for Acute Strokes: 10 CT/Brain/Head without Contrast IMPRESSION: Small vessel ischemia. Electronically Signed: Denise Rodriguez MD at 10:16 EDT ,
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
--- NOTE | 2024-02-09 09:35 | CT_ITS ---
INDICATION: trauma EXAMINATION: CT FACIAL BONES - CT Maxillofacial W/O Contrast Injection TECHNIQUE: Helically acquired images were obtained of the facial bones. A radiation dose optimization technique was used for this scan. The protocol utilizes one or more of the following dose reduction techniques: automated exposure control, adjustment of mA and/or kV according to patient size,and/or use of iterative reconstruction technique. IV Contrast dosage and agent: None. RADIATION DOSAGE (If Supplied By Facility): CTDIvol = ( 29.38 ) mGy, DLP = ( 562.15 ) mGycm COMPARISON: Head CT dated March 29, 2023 FINDINGS: SOFT TISSUES: No focal subcutaneous swelling. No discrete fluid collections. VISUALIZED PARANASAL SINUSES: There is partial opacification of the ethmoid and maxillary sinuses consistent with a history of sinusitis. There is a stable round calcific focus within the left frontal sinus suggestive of an osteoma. VISUALIZED MASTOID AIR CELLS: Clear. FACIAL BONES, MANDIBLE AND TMJs: No displaced facial bone fracture. No lytic or blastic abnormality. VISUALIZED DENTITION: No periodontal osseous erosion. ORBITAL CONTENTS: Both globes, extraocular muscles and retrobulbar fat appear unremarkable. CT/Sinus/Facial Bone IMPRESSION: No acute osseous injury. Electronically Signed: Denise Rodriguez MD at 11:03 EDT ,
[2024-02-09 09:37] LABS: Absolute Neutrophil Count 8.6 X10^3/uL (2.0-7.7); Basophil# 0.06 X10^3/uL; Basophil% 0.5 % (0-1); Eosinophil# 0.14 X10^3/uL; Eosinophils% 1.1 % (0-5); Hemoglobin 10.3 g/dL (12.0-15.0); Lymphocyte % 22.1 % (19-41); Mean Corp Hgb Conc 30.3 g/dL (32-36); Mean Corpuscular Hgb 25.1 pg (27.0-32.0); Mean Corpuscular Volume 82.7 fL (81-99); Mean Platelet Vol. 10.2 fl (6.2-12.0); Monocyte# 1.05 X10^3/uL; Monocyte% 8.3 % (0-10); NRBC Flagged by Analyzer 0 % (0-5); Neutrophil # 8.59 X10^3/uL (2.7-7.7); Neutrophil % 67.6 % (47-70); Platelet Count 469 K/mm3 (150-450); RBC Distribution Width SD 50.8 fl (35.1-43.9); Red Blood Count 4.11 M/mm3 (4.2-5.4); White Blood Count 12.7 K/mm3 (4.4-11.0)
[2024-02-09 10:17] LABS: Prothrombin Time (Protime)PT. 13.4 SECONDS (11.7-14.9)
[2024-02-09 10:18] LABS: Partial Thromboplast Time 24.9 Seconds (24.1-36.2)
[2024-02-09 11:06] LABS: Anion Gap 9 (5-15); BUN 33 mg/dL (7-18); BUN/Creat Ratio 24.3 RATIO (10-20); Calcium,Total 8.4 mg/dL (8.5-10.1); Chloride 104 mmol/L (98-107); Creatinine, Serum 1.36 mg/dL (0.55-1.02); EST Glomerular Filtration Rate 41 mL/min (>60); Est Glom Filt Rate - Afr Amer 50 mL/min (>60); Estimated Creatinine Clearance 32.49 ml/min; Glucose 86 mg/dL (74-106); Potassium 3.6 mmol/L (3.5-5.1); Sodium Level 136 mmol/L (136-145)
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
--- NOTE | 2024-02-09 12:23 | ED.RN ---
Emily CARSON and Albert LAKHANI at bedside. Pt asked for pictures to be taken for documentation. Those have been completed. We will download them into the chart.
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
--- NOTE | 2024-02-09 17:10 | ED.RN ---
Addendum entered by Samantha Byrne 02/09/24 17:15: Right arm Original Note:
--- NOTE | 2024-02-09 17:10 | ED.RN ---
Addendum entered by Samantha Byrne 02/09/24 17:15: Left shoulder Original Note:
--- NOTE | 2024-02-09 17:11 | ED.RN ---
Addendum entered by Samantha Byrne 02/09/24 17:19: Left arm Original Note:
--- NOTE | 2024-02-09 17:11 | ED.RN ---
Addendum entered by Samantha Byrne 02/09/24 17:18: Left upper arm Original Note:
--- NOTE | 2024-02-09 17:11 | ED.RN ---
Addendum entered by Samantha Byrne 02/09/24 17:16: Left arm. Bruise there prior to IV insertion. Original Note:
--- NOTE | 2024-02-09 17:12 | ED.RN ---
Addendum entered by Samantha Byrne 02/09/24 17:16: Mid back bruise. Right kidney area. Original Note:
--- NOTE | 2024-02-09 17:13 | ED.RN ---
Addendum entered by Samantha Byrne 02/09/24 17:18: Mid upper back Original Note:
--- NOTE | 2024-02-09 17:13 | ED.RN ---
Addendum entered by Samantha Byrne 02/09/24 17:17: BL leg bruising. Original Note:
--- NOTE | 2024-02-09 17:13 | ED.RN ---
Addendum entered by Samantha Byrne 02/09/24 17:17: Right arm Original Note:
--- NOTE | 2024-02-09 17:14 | ED.RN ---
Addendum entered by Samantha Byrne 02/09/24 17:17: Right lower abd Original Note:
[2024-02-09] MEDS: Ondansetron 4 MG/2 ML Vial IV (17:24)
[2024-02-09] MEDS: Morphine 4 MG/ML Syringe IV (17:25)
[2024-02-09 17:39] LABS: Prothrombin Time (Protime)PT. 13.5 SECONDS (11.7-14.9)
[2024-02-09] MEDS: Lactated Ringers 1,000 ML 100 ML IV (18:25)
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
[2024-02-09 21:07] LABS: Magnesium 1.9 mg/dL (1.6-2.6); Phosphorus 2.8 mg/dL (2.5-4.9)
--- NOTE | 2024-02-09 22:29 | NURSING ---
mg and phos wnl
[2024-02-10] VITALS (13 sets, daily range): BP systolic 122–143; BP diastolic 59–78; PULSE 68–105; RESP 12–26; TEMP 36.6–36.7; O2SAT 93–97
[2024-02-10 06:05] LABS: Absolute Lymphocyte Count 1.69 X10^3/uL (0.83-4.51); Absolute Neutrophil Count 6.2 X10^3/uL (2.0-7.7); Basophil# 0.04 X10^3/uL; Basophil% 0.4 % (0-1); Eosinophil# 0.11 X10^3/uL; Eosinophils% 1.2 % (0-5); Hematocrit 30.3 % (37-47); Hemoglobin 9.2 g/dL (12.0-15.0); Lymphocyte # 1.69 X10^3/ul (0.83-4.51); Lymphocyte % 18.8 % (19-41); Mean Corp Hgb Conc 30.4 g/dL (32-36); Mean Corpuscular Hgb 24.9 pg (27.0-32.0); Mean Corpuscular Volume 82.1 fL (81-99); Mean Platelet Vol. 9.3 fl (6.2-12.0); Monocyte# 0.95 X10^3/uL; Monocyte% 10.6 % (0-10); NRBC Flagged by Analyzer 0 % (0-5); Neutrophil # 6.17 X10^3/uL (2.7-7.7); Neutrophil % 68.6 % (47-70); Platelet Count 392 K/mm3 (150-450); RBC Distribution Width CV 16.9 % (11.6-14.6); RBC Distribution Width SD 50.6 fl (35.1-43.9); Red Blood Count 3.69 M/mm3 (4.2-5.4)
[2024-02-10] MEDS: oxyCODONE 5 MG Tablet 2.5 MG PO (06:35)
[2024-02-10 06:38] LABS: Anion Gap 5 (5-15); BUN 17 mg/dL (7-18); BUN/Creat Ratio 19.5 RATIO (10-20); Calcium,Total 8.6 mg/dL (8.5-10.1); Chloride 106 mmol/L (98-107); Creatinine, Serum 0.87 mg/dL (0.55-1.02); EST Glomerular Filtration Rate 69 mL/min (>60); Est Glom Filt Rate - Afr Amer 83 mL/min (>60); Estimated Creatinine Clearance 44.45 ml/min; Glucose 130 mg/dL (74-106); Potassium 3.8 mmol/L (3.5-5.1); Sodium Level 138 mmol/L (136-145); T4 Free Direct 0.28 ng/dL (0.76-1.46)
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
[2024-02-10 12:47] LABS: Bacteria 0 SEEN /hpf (None Seen); Mucous, Urine 0 SEEN /hpf (<or=2+); Red Blood Cells-Urine 0 SEEN /hpf (0-5)
[2024-02-10 12:49] LABS: Color, Urine Yellow (Yellow); Glucose, Dipstick Normal (Normal); Ketone-Dipstick 5 mg/dl (Negative); Leukocyte Esterase-Dipstick 25 /ul (Negative); Nitrite-Dipstick Negative (Negative); Occult Blood-Urine Negative /ul (Negative); Protein-Dipstick 30 mg/dl (Negative); Urine Bilirubin Dipstick Negative (Negative); Urine Clarity Sl. Cloudy (Clear); Urine Urobilinogen Normal (Normal)
[2024-02-10 12:55] LABS: Squamous Epithelial Cells - UA 0-5 SEEN /hpf (5-10); White Blood Cells 0-5 SEEN /hpf (0-5)
[2024-02-10 12:56] LABS: Yeast-Urine 2+ /hpf (None Seen)
[2024-02-10 13:02] LABS: Amphetamine Urine VISTA NEGATIVE (<1000 ng/mL); Barbiturate Urine VISTA NEGATIVE (< 200 ng/mL); Benzodiazepine Urine VISTA POSITIVE (< 200 ng/mL); Cocaine Urine VISTA NEGATIVE (< 300 ng/mL); Ecstacy Urine VISTA NEGATIVE (< 500 ng/mL); Methadone Urine VISTA NEGATIVE (< 300 ng/mL); PCP Urine VISTA NEGATIVE (< 25 ng/mL); THC Urine VISTA NEGATIVE (< 50 ng/mL); Vista UDS pH Range 6
[2024-02-10] MEDS: Levothyroxine 112 MCG Tablet PO (13:24)
[2024-02-10] MEDS: Metoprolol Tartrate 25 MG Tablet PO ×2 (13:24→22:25)
[2024-02-10] MEDS: Acetaminophen 325 MG Tablet 650 MG PO (13:25)
[2024-02-10] MEDS: Azithromycin 250 MG Tablet PO (13:25)
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
--- NOTE | 2024-02-10 14:51 | NURSING ---
pt heard calling for help, entered room-pt on knees on floor-denies hitting head-call light in her hand she states i have been using it for a long time but o one answers-call llight tested and working-call light has not gone off recently-pt assisted back to bed-pt denies hitting head
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
--- NOTE | 2024-02-10 15:14 | CPS ---
treatment not started, pt is with social worker psychiatric. social worker psychiatric states, it will be close to an hour before they are done.
--- NOTE | 2024-02-10 15:17 | CASEMGMT ---
Spoke with patients to complete HANEY form. HANEY form explained to son (Kamron) who voiced understanding. Original form placed in pt?s chart. Son declined copy. Claire Luu, Discharge Planning Asst
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
[2024-02-10] MEDS: Ipratropium/Albuterol Sulfate 3 ML AMPUL.NEB INHALATION (19:25)
[2024-02-10] MEDS: DULoxetine Hcl 60 MG Capsule PO (22:23)
[2024-02-10] MEDS: Diclofenac 75 MG Tablet PO (22:24)
[2024-02-10] MEDS: busPIRone 5 MG Tablet 10 MG PO (22:24)
[2024-02-10] MEDS: Atorvastatin Calcium 80 MG Tablet PO (22:24)
[2024-02-10] MEDS: hydrOXYzine PAM 25 MG Capsule 50 MG PO (22:24)
[2024-02-10] MEDS: Pantoprazole Sodium 40 MG Tablet PO (22:24)
[2024-02-10] MEDS: Montelukast 10 MG Tablet PO (22:25)
[2024-02-11] VITALS (9 sets, daily range): BP systolic 120–137; BP diastolic 70–75; PULSE 62–82; RESP 12–19; TEMP 36.6–36.7; O2SAT 90–98
[2024-02-11] MEDS: Levothyroxine 125 MCG Tablet PO (06:28)
[2024-02-11] MEDS: Ipratropium/Albuterol Sulfate 3 ML AMPUL.NEB INHALATION ×2 (07:41→12:56)
[2024-02-11] MEDS: Furosemide 20 MG Tablet 60 MG PO (09:03)
[2024-02-11] MEDS: busPIRone 5 MG Tablet 10 MG PO (09:03)
[2024-02-11] MEDS: Pantoprazole Sodium 40 MG Tablet PO (09:04)
[2024-02-11] MEDS: Cholecalciferol (VIT D3) 25 MCG TABLET (1,000 UNITS) PO (09:04)
[2024-02-11] MEDS: Metoprolol Tartrate 25 MG Tablet PO (09:04)
[2024-02-11] MEDS: Diclofenac 75 MG Tablet PO (09:04)
[2024-02-11] MEDS: DULoxetine Hcl 60 MG Capsule PO (09:04)
[2024-02-11] MEDS: Clopidogrel Bisulfate 75 MG Tablet PO (09:04)
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
[2024-02-11] MEDS: Acetaminophen 325 MG Tablet 650 MG PO (12:09)
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
--- NOTE | 2024-02-11 13:19 | DCINST_ITS ---
Discharge Instructions Diet Discharge Diet: No restrictions Activity Discharge Activity: Return to Normal Activity Weight Bearing Status: - (Resume previous activity level) Follow Up Care Test Results: Test results from this visit will be discussed in further detail at your follow- up appointment, if applicable. Discharge Plan Admission Admit Date/Time: 02/09/24 16:30 Primary Reason for Your Visit: Debility Attending Provider: Milton Jones Primary Care Provider: Chrystal Michel Consulting Providers: Yaw Reyna Instructions Additional Instructions / Restrictions: Maintain present oxygen setting as before Discharge Orders/Prescriptions Prescriptions: New levothyroxine 125 mcg Tablet 125 mcg PO DAILY@0600 Qty: 30 0RF Continued lorazepam [Ativan] 1 mg tablet 1 mg PO BID-TID PRN (Reason: Anxiety) hydroxyzine HCl 50 mg tablet 50 mg PO QHS montelukast 10 mg tablet 10 mg PO QPM Qty: 90 3RF baclofen 10 mg tablet 10 mg PO DAILY cholecalciferol (vitamin D3) 25 mcg (1,000 unit) capsule 25 mcg PO DAILY acetaminophen 500 mg tablet 500 mg PO Q6H PRN (Reason: pain) clopidogrel 75 MG tablet 75 mg PO DAILY Patient Comments: STOPPED FRO SURGERY, DR INSTRUCTIONS atorvastatin 80 MG tablet 80 mg PO QHS metoprolol tartrate 25 mg tablet 25 mg PO Q12H duloxetine 60 MG capsule 60 mg PO BID furosemide 40 mg Tablet 60 mg PO DAILY topiramate 25 mg tablet 50 mg PO QHS Patient Comments: pt states she is unsure how much she takes and states she takes it in the morning liothyronine 5 mcg tablet 25 mcg PO DAILY pantoprazole 40 mg Tablet,Delayed Release (Dr/Ec) 40 mg PO BID 30 Days Qty: 60 0RF buspirone 10 mg tablet 10 mg PO BID sucralfate 100 mg/mL suspension PO Patient Comments: pt is unsure if she takes this temazepam 30 mg capsule 30 mg PO QHS PRN (Reason: INSOMNIA ) diclofenac sodium 75 mg tablet,delayed release (DR/EC) 75 mg PO BID furosemide 20 mg tablet 20 mg PO DAILY topiramate 50 mg tablet 50 mg PO DAILY prednisone 10 mg tablet 10 mg PO DAILY Qty: 30 0RF Patient Comments: states has 2 more pills to take Rx Instructions: 4 tablets x 3, 3 tablets x 3, 2 tablets x 3, 1 tablet x 3 azithromycin 250 mg tablet 250 mg PO QMWF Qty: 36 11RF albuterol sulfate 90 mcg/actuation HFA aerosol inhaler 1 - 2 puff INHALATION Q6H PRN PRN (Reason: COPD) Qty: 2 6RF Dulera 200-5 mcg/actuation HFA aerosol inhaler 2 inh inhalation BID Qty: 3 3RF Spiriva Respimat 2.5 mcg/actuation mist 2 inh INHALATION DAILY Qty: 3 3RF Discontinued levothyroxine 50 mcg tablet 50 mcg PO DAILY levothyroxine 75 mcg tablet 75 mcg PO .SARAH Patient Comments: yue isidro 75mcg Referrals / Follow Up: Chrystal Michel DO [Primary Care Provider] - Within 2 Weeks Issa Summers DO [Med Staff - [employer]untlet Pairer] - 03/01/24 9:30 am Disposition Disposition (needs filled in before D/C Order can be placed): Home, Self Care
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
--- NOTE | 2024-02-11 13:52 | CASEMGMT ---
Addendum entered by Harshil Smith 02/11/24 15:14: Script for christofer walker obtained and sent to [employer] via [employer]. Call placed to Sigrid @ [facility] and she was made aware. She states will deliver it to pt's room shortly. DEWAYNE LOPEZ made aware. Pt voices appreciation. She states her son will be taking her home and that he will have her portable O2 tank w/him when he comes to get her. She denies having other discharge needs/concerns. Original Note: DEWAYNE LOPEZ NOTE: Informed by Jodie CARSON, that pt needs a walker and agreeable to [employer]. Will obtain script for Dr Jones and send to [employer] via [employer]. Veronica VILLANUEVA RN, CM
--- NOTE | 2024-02-11 14:03 | CASEMGMT ---
Social Work SW met with pt to discuss discharge plan. SW updated that pt is to be discharged today and that Princess and Kamron are able to take pt to their home if. Pt is agreeable to this plan and discussed things that she would like Kamron and Princess to spanish moss picker for her at her home. SW spent time with pt providing emotional support and active listening as pt discussed her marriage and past. Pt updated on appointment with Dr. Summers, psychiatrist and importance of keeping this appointment. Pt shows good insight and understanding of need to see psychiatry and is able to again discuss hallucinations appropriately. With pt permission, phone arcenio to Princess and updated that pt will be discharged today. Princess to be her around 5:30 to spanish moss picker. SW provided pts list of needed things including portable oxygen tanks. Princess agreeable to obtain. Princess made aware of appointment with Dr. Summers and importance of keeping this appointment. With pt permission, SW also disclosed pt admission to hallucinations. VM left with [facility] Sharron JESSICA. RNCM updated that pt is requesting a walker for home. Plan: Home with son Kamron TAO Altamirano
--- NOTE | 2024-02-11 16:43 | CASEMGMT ---
Social Work Return call from Sharron at [facility] and update provided on pt. APS to follow up with pt at her son's home. TAO Altamirano
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
== END 2024-02-11 18:46 | disposition home or self-care (01) ==
LOC: ED 16:37 → MS3 16:59
PROVIDERS: Admitting Provider Internal Medicine; Emergency Provider Emergency Medicine; PCP Family Medicine; Visit Provider Internal Medicine
DX: S05.11XA Contusion of eyeball and orbital tissues, right eye, initial encounter (principal); Z89.511 Acquired absence of right leg below knee; J96.11 Chronic respiratory failure with hypoxia; J44.9 Chronic obstructive pulmonary disease, unspecified; I10 Essential (primary) hypertension; E78.5 Hyperlipidemia, unspecified; K26.9 Duodenal ulcer, unspecified as acute or chronic, without hemorrhage or perforation; Z79.51 Long term (current) use of inhaled steroids; G89.29 Other chronic pain; I25.10 Atherosclerotic heart disease of native coronary artery without angina pectoris; M79.7 Fibromyalgia; E89.0 Postprocedural hypothyroidism; W19.XXXA Unspecified fall, initial encounter; F17.210 Nicotine dependence, cigarettes, uncomplicated; R29.6 Repeated falls; K21.9 Gastro-esophageal reflux disease without esophagitis; Z79.899 Other long term (current) drug therapy; Z79.890 Hormone replacement therapy; Z79.02 Long term (current) use of antithrombotics/antiplatelets; S40.021A Contusion of right upper arm, initial encounter; S40.022A Contusion of left upper arm, initial encounter; S80.11XA Contusion of right lower leg, initial encounter; S80.12XA Contusion of left lower leg, initial encounter; R53.81 Other malaise; G93.40 Encephalopathy, unspecified; Y92.009 Unspecified place in unspecified non-institutional (private) residence as the place of occurrence of the external cause
CPT/HCPCS: 36415; 70450; 70486; 71250; 80048; 80307; 81001; 82140; 83735; 84100; 84439; 84443; 85025; 85610; 85730; 94002; 94003; 94640; 94668; 94762; 96361; 96374; 96375; 97110; 97162; 97165; 97530; 99221; 99285; J7120; A4216; G0378; J2405

== ENCOUNTER → 2024-02-24 | Outpatient (CLI) | payer MEDICARE, SELFPAY ==
--- NOTE | 2024-02-24 17:43 | CT_ITS ---
INDICATION: NODULE IN HIGH RISK PATIENT EXAMINATION: CT CHEST WITHOUT CONTRAST - CT Chest W/O Contrast Injection TECHNIQUE: Helically acquired images were obtained of the chest. A radiation dose optimization technique was used for this scan. IV Contrast dosage and agent: None. COMPARISON: None. FINDINGS: LUNGS, PLEURA AND LARGE AIRWAYS: Mild multifocal subpleural interstitial thickening. There is a tiny subpleural nodule in the superior segment of right lower lobe posteriorly measuring approximately 6 mm . Mild subsegmental atelectasis or infiltrate of the right middle lobe which is stable since prior exam. No pleural effusion or thickening. No pneumothorax. THYROID: No thyroid lesions. HEART AND PERICARDIUM: Heart size is normal. No pericardial effusion. CORONARY ARTERIES: Coronary artery calcification VESSELS: Mild atherosclerotic changes of the aorta without evidence for aneurysm MEDIASTINUM AND IRMA: No mediastinal or hilar adenopathy. Esophagus is unremarkable. No hiatal hernia. UPPER ABDOMEN: No acute pathology. BONES: Multiple old healed bilateral rib fractures No suspicious lytic or blastic abnormality. Dorsal spine demonstrates degenerative change. There is an old compression fracture of T8 Postsurgical changes are noted of the thoracolumbar spine and old healed sternal fracture is noted There is improved aeration of the right middle lobe since prior study and resolution of multiple previously noted right lower lobe nodular opacities. No new nodules were observed. CT/Chest without Contrast IMPRESSION: Persistent chronic interstitial and emphysematous changes.. Persistent subsegmental atelectasis in the right middle lobe not changed since previous study Interval improvement in previously noted right lower lobe nodular opacities without evidence for new nodule. However would follow up imaging utilizing Fleischner Society criteria Electronically Signed: Noble Ge MD at 16:11 EDT ,
== END | disposition home or self-care (01) ==
LOC: CT 17:42
PROVIDERS: PCP Family Medicine; Referring Provider Nurse Practitioner Acute Care; Visit Provider Nurse Practitioner Acute Care
DX: R91.1 Solitary pulmonary nodule (principal)
CPT/HCPCS: 71250

== ENCOUNTER 2024-03-11 09:26 | Inpatient (IN) | payer MEDICARE, SELFPAY ==
[2024-03-11] VITALS (11 sets, daily range): BP systolic 106–123; BP diastolic 61–92; PULSE 87–100; RESP 16–18; TEMP 36.6–37; O2SAT 92–96; BMI 25.7; BMI 25.9
--- NOTE | 2024-03-11 09:49 | CT_ITS ---
STUDY: CT BRAIN WITHOUT CONTRAST REASON FOR EXAM: Female, 68 years old. AMS RADIATION DOSAGE (If Supplied By Facility): CTDIvol = ( 44.99 ) mGy, DLP = ( 762.36 ) mGycm TECHNIQUE: Transaxial CT imaging of the brain was performed without administration of intravenous contrast material. Individualized dose optimization techniques were used for this CT. COMPARISON: No relevant priors. FINDINGS: Normal soft tissue structures. Normal calvarium. There is mild cerebral atrophy with widening of the extra-axial spaces and ventricular dilatation. Normal white matter tracts of the cerebral hemispheres. Normal basal ganglia and thalami. Normal brainstem. Normal cerebellum. There is no intracranial hemorrhage. There are no findings of an acute ischemic infarction. There is postoperative change of the visualized paranasal sinuses. CT/Brain/Head without Contrast IMPRESSION: Chronic involutional changes of the brain. Electronically Signed: Reece Gupta MD at 11:31 EST ,
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
--- NOTE | 2024-03-11 09:51 | EKG12_ITS ---
Test Reason : Blood Pressure : */* mmHG Vent. Rate : 89 BPM Atrial Rate : 89 BPM P-R Int : 158 ms QRS Dur : 98 ms QT Int : 412 ms P-R-T Axes : 57 56 90 degrees QTcB Int : 501 ms Normal sinus rhythm Nonspecific ST and T wave abnormality Abnormal ECG Confirmed by ITZ HIRSCH, CHRISTIAN ([id number]), editorial project manager DAKOTAH DELVALLE ([id number]) on 03/15/2024 7:56:37 AM Referred By: Confirmed By: CHRISTIAN MOBLEY MD
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
[2024-03-11 10:32] LABS: Color, Urine Yellow (Yellow); Glucose, Dipstick Normal (Normal); Ketone-Dipstick 50 mg/dl (Negative); Leukocyte Esterase-Dipstick 25 /ul (Negative); Mucous, Urine 0 SEEN /hpf (<or=2+); Nitrite-Dipstick Negative (Negative); Occult Blood-Urine 10 /ul (Negative); Protein-Dipstick 30 mg/dl (Negative); Red Blood Cells-Urine 0 SEEN /hpf (0-5); Urine Clarity Clear (Clear); Urine Urobilinogen 1 mg/dl (Normal)
[2024-03-11 10:32] LABS: Absolute Lymphocyte Count 1.44 X10^3/uL (0.83-4.51); Basophil# 0.04 X10^3/uL; Basophil% 0.4 % (0-1); Eosinophil# 0.01 X10^3/uL; Eosinophils% 0.1 % (0-5); Hematocrit 29.7 % (37-47); Hemoglobin 9.5 g/dL (12.0-15.0); Lymphocyte # 1.44 X10^3/ul (0.83-4.51); Lymphocyte % 15.6 % (19-41); Mean Corpuscular Hgb 25.7 pg (27.0-32.0); Mean Corpuscular Volume 80.3 fL (81-99); Mean Platelet Vol. 9.5 fl (6.2-12.0); Monocyte# 0.73 X10^3/uL; Monocyte% 7.9 % (0-10); NRBC Flagged by Analyzer 0 % (0-5); Neutrophil # 6.99 X10^3/uL (2.7-7.7); Neutrophil % 75.6 % (47-70); Platelet Count 487 K/mm3 (150-450); RBC Distribution Width CV 16.1 % (11.6-14.6); RBC Distribution Width SD 46.5 fl (35.1-43.9); White Blood Count 9.3 K/mm3 (4.4-11.0)
[2024-03-11 10:34] LABS: Urine Bilirubin Dipstick 1 mg/dL (Negative)
[2024-03-11 10:40] LABS: Amorphous Sediment 1+; Bacteria RARE /hpf (None Seen); Hyaline Cast 0-5 SEEN /lpf (0-5); Squamous Epithelial Cells - UA 0-5 SEEN /hpf (5-10); White Blood Cells 5-10 SEEN /hpf (0-5)
--- NOTE | 2024-03-11 10:40 | RAD_ITS ---
INDICATION: cough EXAMINATION/TECHNIQUE: X-RAY - XR Chest 1 View COMPARISON: January 15, [address] dated February 24, 2024 FINDINGS: LINES/DEVICES: None. LUNGS: No new consolidation, edema or effusion. There is a curvilinear opacity within the right lower lung that is less pronounced than the prior examination may reflect atelectasis and/or scarring. There is stable left basilar atelectasis and/or scarring. No pneumothorax. MEDIASTINUM AND CARDIOVASCULAR STRUCTURES: Cardiac silhouette not enlarged. Central airways and mediastinal contour are unremarkable. BONES AND SOFT TISSUES: There are stable right ninth and 10th posterior rib deformities consistent with healed fractures. There are postsurgical changes of the thoracolumbar spine. RAD/Chest 1 View (Portable) IMPRESSION: No radiographic evidence of acute cardiopulmonary disease. Electronically Signed: Denise Rodriguez MD at 10:59 EST ,
[2024-03-11 10:49] LABS: Alcohol, Blood (Medical)-Serum < 3.0 mg/dL; Ammonia < 10.0 umol/L (11-32)
[2024-03-11 10:54] LABS: ALB/GLOB Ratio 0.7 RATIO (0.9-2.4); AST(SGOT) 9 U/L (15-37); Alanine Aminotransfer ALT/SGPT 15 U/L (13-56); Alkaline Phosphatase 87 U/L (45-117); Anion Gap 9 (5-15); BUN 36 mg/dL (7-18); BUN/Creat Ratio 26.7 RATIO (10-20); Calcium,Total 7.9 mg/dL (8.5-10.1); Chloride 100 mmol/L (98-107); Creatinine, Serum 1.35 mg/dL (0.55-1.02); EST Glomerular Filtration Rate 41 mL/min (>60); Est Glom Filt Rate - Afr Amer 50 mL/min (>60); Estimated Creatinine Clearance 28.65 ml/min; Globulin 4.2 g/dL (2.2-4.2); Glucose 97 mg/dL (74-106); Potassium 3.3 mmol/L (3.5-5.1); Protein, Total 7.2 g/dL (6.4-8.2); Sodium Level 134 mmol/L (136-145)
[2024-03-11 10:54] LABS: Amphetamine Urine VISTA NEGATIVE (<1000 ng/mL); Barbiturate Urine VISTA NEGATIVE (< 200 ng/mL); Benzodiazepine Urine VISTA NEGATIVE (< 200 ng/mL); Cocaine Urine VISTA NEGATIVE (< 300 ng/mL); Ecstacy Urine VISTA NEGATIVE (< 500 ng/mL); Methadone Urine VISTA NEGATIVE (< 300 ng/mL); PCP Urine VISTA POSITIVE (< 25 ng/mL); THC Urine VISTA NEGATIVE (< 50 ng/mL); Vista UDS pH Range 5
--- NOTE | 2024-03-11 12:18 | ED.RN ---
Unable to complete home med rec, hospitalist in chart.
[2024-03-11] MEDS: 0.9% Normal Saline (1000mL) 1,000 ML 100 ML IV (12:28)
--- NOTE | 2024-03-11 12:35 | HP.PCM.HOS_ITS ---
HPI - General General Date of Admission: 03/11/24 Date of Service: 03/11/24 Chief Complaint: Altered mental status HPI Narrative TAJ BLANK, is a 68 F who presents with altered mental status. History was contributed by both patient and the . Per patient she woke up on the morning of her presentation seen things and presentation. Patient has been felt patient had a similar presentation previously when she had an infection patient was therefore brought to the emergency department. Workup in the emergency department did reveal acute kidney injury as well as acute cystitis. Patient was started on IV fluid antibiotics and admitted to regular nursing floor for further [facility] Medical History PTSD (post-traumatic stress disorder) Fall Contusion of nose Periorbital contusion of right eye Contusion of multiple fingers Chronic hypoxic respiratory failure Contusion of scalp Hyperthyroidism GI bleed Former smoker CPAP (continuous positive airway pressure) dependence On home oxygen therapy Myocardial infarct Congestive heart failure (CHF) Migraines Normocytic anemia Fibromyalgia Chronic respiratory failure with hypoxia RAUL (obstructive sleep apnea) Incisional hernia TIA (transient ischemic attack) Osteoporosis Osteoarthritis Thyroid disorder Diverticulitis History of heart attack Sleep apnea History of pneumonia COPD (chronic obstructive pulmonary disease) History of bronchitis Asthma HTN (hypertension) Depression Anxiety Nausea and vomiting GERD (gastroesophageal reflux disease) Heart disease spinal stimulator Spinal stenosis Chronic back pain Hypothyroidism Home Medications ?Medication ?Instructions ?Recorded ?Last Taken ?Type atorvastatin 80 mg tablet 80 mg PO QHS cholesterol 06/01/13 05/25/14 History 80 MG clopidogrel 75 mg tablet 75 mg PO DAILY anti platelet 06/01/13 11/18/23 History lorazepam 1 mg tablet (Ativan) 1 mg PO BID-TID PRN Anxiety 11/17/18 Unknown History duloxetine 60 mg capsule,delayed 60 mg PO BID 06/19/20 Unknown History release furosemide 40 mg tablet 60 mg PO DAILY 08/23/22 Unknown History liothyronine 5 mcg tablet 25 mcg PO DAILY 08/23/22 Unknown History pantoprazole 40 mg tablet,delayed 40 mg PO BID 30 days #60 tabs 05/06/23 Unknown Rx release baclofen 10 mg tablet 10 mg PO DAILY 10/09/23 Unknown History cholecalciferol (vitamin D3) 25 25 mcg PO DAILY 10/09/23 Unknown History mcg (1,000 unit) capsule metoprolol tartrate 25 mg tablet 25 mg PO Q12H blood pressure 10/09/23 Unknown History albuterol sulfate 90 mcg/actuation 1 - 2 puff inhalation Q6H PRN PRN 10/27/23 Unknown Rx aerosol inhaler COPD #2 device acetaminophen 500 mg tablet 500 mg PO Q6H PRN pain 11/05/23 Unknown History mometasone-formoterol HFA 200 2 inh inhalation BID lungs #3 ea 01/15/24 Unknown Rx mcg-5 mcg/actuation aerosol inhaler (Dulera) tiotropium bromide 2.5 2 inh inhalation DAILY #3 ea 02/02/24 Unknown Rx mcg/actuation mist for inhalation (Spiriva Respimat) buspirone 10 mg tablet 7.5 mg PO BID ANXIETY 02/09/24 Unknown History diclofenac sodium 75 mg 75 mg PO BID 02/09/24 Unknown History tablet,delayed release sucralfate 100 mg/mL oral ml PO 02/09/24 Unknown History suspension topiramate 50 mg tablet 50 mg PO DAILY 02/09/24 Unknown History levothyroxine 125 mcg tablet 125 mcg PO DAILY@0600 #30 tabs 02/11/24 Unknown Rx montelukast 10 mg tablet 10 mg PO QPM #90 tabs 02/15/24 Unknown Rx mirtazapine 15 mg tablet 15 mg PO QHS sleep #30 tabs 03/01/24 Unknown Rx hydroxyzine HCl 50 mg tablet 50 mg PO QHS 03/11/24 Unknown History levothyroxine 50 mcg tablet 50 mcg PO DAILY 03/11/24 Unknown History Allergy/AdvReac Type Severity Reaction Status Date / Time cefaclor (From Ceclor) Allergy Itching Verified 03/11/24 09:36 clarithromycin Allergy Hives Verified 03/11/24 09:36 doxycycline Allergy Itching Verified 03/11/24 09:36 Penicillins Allergy Hives Verified 03/11/24 09:36 Sulfa (Sulfonamide Allergy Hives Verified 03/11/24 09:36 Antibiotics) biotin AdvReac Unknown Unknown Verified 03/11/24 09:36 zolpidem (From Ambien) AdvReac Unknown mental Verified 03/11/24 09:36 issues Family History Father Asthma Heart disease Grandmother Breast cancer Diabetes Mother Heart disease COPD (chronic obstructive pulmonary disease) Other Cancer Surgical History History of appendectomy History of incisional hernia repair History of incisional hernia repair (~12/20/18) Hx of cholecystectomy History of esophagogastroduodenoscopy (EGD) (~07/2018) Previous back surgery S/P hysterectomy S/P carpal tunnel release S/P knee surgery S/P correction of deviated nasal septum Status post thyroidectomy H/O heart artery stent Status post amputation of right foot Social History household members: spouse Smoking Status: Former smoker Tobacco: How many years used: 25 second hand exposure: Yes alcohol intake: never substance use type: does not use caffeine: Yes what type of physical activity do you participate in: none frequency: does not exercise ROS ROS Narrative GENERAL: denies fever, chills, night sweats, weight loss, anorexia HEENT: denies headache, sinus congestion, or drainage, dysphagia RESPIRATORY: denies cough, sputum production, CARDIAC: denies chest pain, palpitations, orthopnea, PND GASTROINTESTINAL: denies abdominal pain, nausea, vomiting, melena, GENITOURINARY: denies dysuria, urgency, frequency, EXTREMITY: denies swelling MUSCULOSKELETAL: denies current joint pain or tenderness NEUROLOGIC: denies focal numbness, weakness, tingling HEMATOLOGIC: denies easy bruising and/or hemorrhage INTEGUMENT: denies rashes PSYCHIATRIC: Hallucinations Vital Signs Vital Signs Vital Signs: 03/11/24 09:28 03/11/24 09:31 03/11/24 10:16 Temperature 98.6 F 98.6 F 98.6 F Temperature Source Oral Oral Oral Pulse Rate 95 92 87 Respiratory Rate 16 16 16 Blood Pressure 123/67 H 123/67 H 108/62 Blood Pressure Mean 85 85 77 Pulse Ox 92 93 94 Oxygen Delivery Method Room Air Room Air Room Air 03/11/24 11:00 03/11/24 12:00 03/11/24 12:20 Temperature 98.2 F 98.4 F 98.4 F Temperature Source Oral Oral Pulse Rate 91 89 92 Respiratory Rate 18 18 18 Blood Pressure 106/92 H 118/66 116/65 Blood Pressure Mean 96 83 82 Pulse Ox 93 96 96 Oxygen Delivery Method Room Air Room Air Weight Weight: 54 kg Body Mass Index (BMI) 25.7 Physical Exam Narrative GENERAL: cooperative HEENT: Bruising around the right cheek EYES; Anicteric, Normal Conjunctiva NECK; supple, normal thyroid, RESPIRATORY: Diminished to auscultation CARDIOVASCULAR: Regular S1 S2, GI: soft, normoactive bowel sounds, : No Renal angle tenderness; EXTREMITIES: No edema, no clubbing, MUSCULOSKELETAL: no muscle wasting NEURO: Awake; no lateralizing signs. SKIN: No Rash PSYCH; Flat affect Results Lab / Micro Data 03/11/24 10:20 03/11/24 10:20 Labs: Laboratory Results - last 24 hr 03/11/24 09:51: Urine Color Yellow, Urine Clarity Clear, Urine pH 6.0, Ur Specific [place] 1.020, Urine Protein 30 H, Urine Glucose (UA) Normal, Urine Ketones 50 H, Urine Occult Blood 10 H, Urine Nitrite Negative, Urine Bilirubin 1 H, Urine Urobilinogen 1 H, Ur Leukocyte Esterase 25 H, Urine RBC 0 SEEN, Urine WBC 5-10 SEEN, Ur Squamous Epith Cells 0-5 SEEN, Amorphous Sediment 1+, Urine Bacteria RARE, Hyaline Casts 0-5 SEEN, Urine Mucus 0 SEEN 03/11/24 10:20: WBC 9.3, RBC 3.70 L, Hgb 9.5 L, Hct 29.7 L, MCV 80.3 L, MCH 25.7 L, MCHC 32.0, RDW Std Deviation 46.5 H, RDW Coeff of [place] 16.1 H, Plt Count 487 H , MPV 9.5, Immature Gran % (Auto) 0.400, Neut % (Auto) 75.6 H, Lymph % (Auto) 15.6 L, [place] % (Auto) 7.9, Eos % (Auto) 0.1, Baso % (Auto) 0.4, Absolute Neuts (auto) 7.0, Absolute Lymphs (auto) 1.44, Nucleated RBC % 0, Sodium 134 L, P otassium 3.3 L, Chloride 100, Carbon Dioxide 25.0, Anion Gap 9, BUN 36 H, C reatinine 1.35 H, Estim Creat Clear Calc 28.65, Est GFR (MDRD) Af Amer 50 L, Est GFR (MDRD) Non-Af 41 L, BUN/Creatinine Ratio 26.7 H, Glucose 97, Calcium 7.9 L, Total Bilirubin 0.40, AST 9 L, ALT 15, Alkaline Phosphatase 87, Ammonia < 10.0 L , Total Protein 7.2, Albumin 3.0 L, Globulin 4.2, Albumin/Globulin Ratio 0.7 L, TSH 0.090 L, Ethyl Alcohol < 3.0 03/11/24 10:24: Urine Opiates Screen NEGATIVE, Urine Methadone Screen NEGATIVE, Ur Barbiturates Screen NEGATIVE, Ur Phencyclidine Scrn POSITIVE H, Ur Amphetamines Screen NEGATIVE, MDMA (Ecstasy) Screen NEGATIVE, U Benzodiazepines Scrn NEGATIVE, Urine Cocaine Screen NEGATIVE, U Cannabinoids Screen NEGATIVE, Ur Drug Screen Comment Imaging Radiology Impression Brain CT 03/11/24 09:49 IMPRESSION: Chronic involutional changes of the brain. Electronically Signed: Reece Gupta MD at 11:31 EST , Facial/Sinus 03/11/24 09:49 IMPRESSION: Soft tissue swelling. No fracture seen. Electronically Signed: Reece Gupta MD at 11:37 EST , Chest X-Ray 03/11/24 10:40 IMPRESSION: No radiographic evidence of acute cardiopulmonary disease. Electronically Signed: Denise Rodriguez MD at 10:59 EST , Assessment & Plan Assessment/Plan (1) UTI (urinary tract infection): PLAN: Plan Patient is a 68-year-old lady admitted with altered mental status 1. Acute metabolic encephalopathy ? Multifactorial including acute kidney injury suspected UTI as well as use of multiple psychotropic medications admitted to regular nursing floor for treatment of underlying etiology 2. Acute cystitis ? Patient was started on Levaquin. Patient recent cultures from 01/15/2024 grew Klebsiella sensitive to quinolones. Repeat cultures sent on admission 3. Acute kidney injury ? Patient started on IV hydration with subsequent monitoring of electrolytes ordered 4. Hypokalemia ? Corrected for protocol repeat labs ordered for further eval 5. PTSD ? Patient is followed by psychiatrist Dr. Issa Summers as outpatient patient is on mirtazapine at night 6. Depression with anxiety ? Patient is on duloxetine as well as buspirone 7. Hypothyroidism ? Patient is on levothyroxine home dose continued 8. COPD ? Currently not in exacerbation patient is on bronchodilator and inhaled corticosteroid plan is to continue once home meds have been reconciled 9. Dyslipidemia ?Patient is on statin therapy, continued at home dose 10. Hypertension ? Blood pressure controlled, home medications continued with dose adjustment as needed 11. History of esophagitis ? Patient is on PPI 12. Recurrent falls ? Patient send has a bruise on the right cheek requested for PT OT eval 13. Coronary artery disease ? With previous PCI. Patient is on recommended medications. Recent echo from December 2023 demonstrated EF of 60% 14. DVT prophylaxis ? On enoxaparin Time spent in the patient's overall evaluation,decision-making process, review of diagnostic data, adjustment of management, discussion with other providers, nursing nursing and ancillary staff involved in patient's care documentation,75Minutes Advance planning; did discuss with the patient and family regarding advanced directives as well as CODE STATUS. Did explain the various scenarios involved ( FULL CODE, DNR CCA, DNR CCA with no intubation, and DNR CC and what each meant) patient elected remain full code with CPR and intubation if needed. Order was placed. Time spent on discussion 16 minutes. Charges/Coding Multi Select Codes Visit Charges Visit Charges: 20413 Init Hosp L3 Hospitalists' Procedures Procedures: 22135 Advncd Care Plan 30 Min
[2024-03-11] MEDS: hydrOXYzine PAM 25 MG Capsule PO (12:43)
[2024-03-11] MEDS: levoFLOXacin IV 750 MG in Empty Viaflex Q24 100 MG IV (12:47)
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
--- NOTE | 2024-03-11 14:35 | NURSING ---
will apply primofit
--- NOTE | 2024-03-11 14:35 | NURSING ---
SYSTEM ANALYST to apply mi
--- NOTE | 2024-03-11 14:54 | NURSING ---
med list requested from PCP
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
[2024-03-11] MEDS: Mirtazapine 15 MG Tablet PO (23:08)
[2024-03-11] MEDS: Sucralfate 1 GM Tablet PO (23:08)
[2024-03-11] MEDS: busPIRone 5 MG Tablet 10 MG PO (23:09)
[2024-03-11] MEDS: Metoprolol Tartrate 25 MG Tablet PO (23:09)
[2024-03-11] MEDS: Atorvastatin Calcium 80 MG Tablet PO (23:09)
[2024-03-11] MEDS: hydrOXYzine PAM 25 MG Capsule 50 MG PO (23:09)
[2024-03-11] MEDS: Pantoprazole Sodium 40 MG Tablet PO (23:09)
[2024-03-11] MEDS: DULoxetine Hcl 60 MG Capsule PO (23:09)
[2024-03-11] MEDS: Montelukast 10 MG Tablet PO (23:09)
[2024-03-11] MEDS: Topiramate 50 MG Tablet PO (23:10)
[2024-03-11] MEDS: Amitriptyline 10 MG Tablet PO (23:12)
[2024-03-12] MEDS: KCL 20MEQ in 0.9% NS 20 MEQ/1,000 ML IV.SOLN. 150 MEQ IV ×2 (00:37→08:25)
[2024-03-12 01:01] VITALS: BMI 25.8
[2024-03-12 03:08] VITALS: BP 108/58; PULSE 84; RESP 18; TEMP 37.1; O2SAT 95
[2024-03-12 06:05] LABS: Absolute Lymphocyte Count 1.26 X10^3/uL (0.83-4.51); Absolute Neutrophil Count 8.3 X10^3/uL (2.0-7.7); Basophil# 0.04 X10^3/uL; Basophil% 0.4 % (0-1); Hematocrit 28.7 % (37-47); Lymphocyte # 1.26 X10^3/ul (0.83-4.51); Mean Corp Hgb Conc 31.4 g/dL (32-36); Mean Corpuscular Hgb 25.4 pg (27.0-32.0); Mean Corpuscular Volume 81.1 fL (81-99); Mean Platelet Vol. 9.6 fl (6.2-12.0); Monocyte# 0.77 X10^3/uL; Monocyte% 7.3 % (0-10); NRBC Flagged by Analyzer 0 % (0-5); Neutrophil # 8.27 X10^3/uL (2.7-7.7); Neutrophil % 78.6 % (47-70); Platelet Count 446 K/mm3 (150-450); RBC Distribution Width CV 16.2 % (11.6-14.6); RBC Distribution Width SD 48.1 fl (35.1-43.9); Red Blood Count 3.54 M/mm3 (4.2-5.4); White Blood Count 10.5 K/mm3 (4.4-11.0)
[2024-03-12] MEDS: Levothyroxine 50 MCG Tablet PO (06:06)
[2024-03-12] MEDS: Liothyronine 5 MCG Tablet 10 MCG PO (06:06)
[2024-03-12] MEDS: Sucralfate 1 GM Tablet PO ×2 (06:07→10:00)
[2024-03-12 06:54] LABS: Anion Gap 4 (5-15); BUN 12 mg/dL (7-18); BUN/Creat Ratio 16.1 RATIO (10-20); Calcium,Total 7.5 mg/dL (8.5-10.1); Chloride 109 mmol/L (98-107); Creatinine, Serum 0.74 mg/dL (0.55-1.02); EST Glomerular Filtration Rate 82 mL/min (>60); Est Glom Filt Rate - Afr Amer 99 mL/min (>60); Estimated Creatinine Clearance 48.34 ml/min; Glucose 93 mg/dL (74-106); Magnesium 1.8 mg/dL (1.6-2.6); Potassium 3.9 mmol/L (3.5-5.1); Sodium Level 138 mmol/L (136-145)
--- NOTE | 2024-03-12 08:23 | PN.HOSP_ITS ---
Reason for Visit Reason for Visit: Diagnoses Urinary tract infection, site not specified (03/11/24) Objective Data Objective Data Vital Signs: Vital Signs Temp Pulse Resp BP Pulse Ox O2 Del Method O2 Flow Rate 98.8 F 84 18 108/58 L 95 Nasal Cannula 2 03/12/24 03:08 03/12/24 03:08 03/12/24 03:08 03/12/24 03:08 03/12/24 03:08 03/12/24 03:08 03/12/24 03:08 Oxygen Flow Rate (L/min) 2 Oxygen Delivery Method Nasal Cannula Weight: 54.38 kg Body Mass Index (BMI) 25.8 Intake & Output: Intake and Output for Last 24 Hours 03/10/24 03/11/24 03/12/24 23:59 23:59 23:59 Intake Total 385 / 385 1065 / 1065 Output Total 300 / 300 500 / 500 Balance 85 / 85 565 / 565 Lab / Micro Data 03/12/24 05:40 03/12/24 05:40 Labs: Laboratory Results - last 24 hr 03/11/24 09:51: Urine Color Yellow, Urine Clarity Clear, Urine pH 6.0, Ur Specific [place] 1.020, Urine Protein 30 H, Urine Glucose (UA) Normal, Urine Ketones 50 H, Urine Occult Blood 10 H, Urine Nitrite Negative, Urine Bilirubin 1 H, Urine Urobilinogen 1 H, Ur Leukocyte Esterase 25 H, Urine RBC 0 SEEN, Urine WBC 5-10 SEEN, Ur Squamous Epith Cells 0-5 SEEN, Amorphous Sediment 1+, Urine Bacteria RARE, Hyaline Casts 0-5 SEEN, Urine Mucus 0 SEEN 03/11/24 10:20: WBC 9.3, RBC 3.70 L, Hgb 9.5 L, Hct 29.7 L, MCV 80.3 L, MCH 25.7 L, MCHC 32.0, RDW Std Deviation 46.5 H, RDW Coeff of [place] 16.1 H, Plt Count 487 H , MPV 9.5, Immature Gran % (Auto) 0.400, Neut % (Auto) 75.6 H, Lymph % (Auto) 15.6 L, [place] % (Auto) 7.9, Eos % (Auto) 0.1, Baso % (Auto) 0.4, Absolute Neuts (auto) 7.0, Absolute Lymphs (auto) 1.44, Nucleated RBC % 0, Sodium 134 L, P otassium 3.3 L, Chloride 100, Carbon Dioxide 25.0, Anion Gap 9, BUN 36 H, C reatinine 1.35 H, Estim Creat Clear Calc 28.65, Est GFR (MDRD) Af Amer 50 L, Est GFR (MDRD) Non-Af 41 L, BUN/Creatinine Ratio 26.7 H, Glucose 97, Calcium 7.9 L, Total Bilirubin 0.40, AST 9 L, ALT 15, Alkaline Phosphatase 87, Ammonia < 10.0 L , Total Protein 7.2, Albumin 3.0 L, Globulin 4.2, Albumin/Globulin Ratio 0.7 L, TSH 0.090 L, Ethyl Alcohol < 3.0 03/11/24 10:24: Urine Opiates Screen NEGATIVE, Urine Methadone Screen NEGATIVE, Ur Barbiturates Screen NEGATIVE, Ur Phencyclidine Scrn POSITIVE H, Ur Amphetamines Screen NEGATIVE, MDMA (Ecstasy) Screen NEGATIVE, U Benzodiazepines Scrn NEGATIVE, Urine Cocaine Screen NEGATIVE, U Cannabinoids Screen NEGATIVE, Ur Drug Screen Comment 03/12/24 05:40: WBC 10.5, RBC 3.54 L, Hgb 9.0 L, Hct 28.7 L, MCV 81.1, MCH 25.4 L, MCHC 31.4 L, RDW Std Deviation 48.1 H, RDW Coeff of [place] 16.2 H, Plt Count 446, MPV 9.6, Immature Gran % (Auto) 0.700, Neut % (Auto) 78.6 H, Lymph % (Auto) 12.0 L, [place] % (Auto) 7.3, Eos % (Auto) 1.0, Baso % (Auto) 0.4, Absolute Neuts (auto) 8.3 H, Absolute Lymphs (auto) 1.26, Nucleated RBC % 0, Sodium 138, Potassium 3.9, Chloride 109 H, Carbon Dioxide 25.0, Anion Gap 4 L, BUN 12, Creatinine 0.74, Estim Creat Clear Calc 48.34, Est GFR (MDRD) Af Amer 99, Est GFR (MDRD) Non-Af 82, BUN/Creatinine Ratio 16.1, Glucose 93, Calcium 7.5 L, P hosphorus 1.0 L*, Magnesium 1.8 Micro: Microbiology 11/15/24 09:51 Urine, Clean Catch Urine Culture - Preliminary Culture exhibits no growth. Radiography Diagnostic Testing: Radiology Impression Brain CT 03/11/24 09:49 IMPRESSION: Chronic involutional changes of the brain. Electronically Signed: Reece Gupta MD at 11:31 EST , Facial/Sinus 03/11/24 09:49 IMPRESSION: Soft tissue swelling. No fracture seen. Electronically Signed: Reece Gupta MD at 11:37 EST , Chest X-Ray 03/11/24 10:40 IMPRESSION: No radiographic evidence of acute cardiopulmonary disease. Electronically Signed: Denise Rodriguez MD at 10:59 EST , Rhythm Strip Rhythm Strip: Sinus Rhythm Rate: 89 Ectopy: None Physical Exam Narrative GENERAL: cooperative HEENT: Bruising around the right cheek EYES; Anicteric, Normal Conjunctiva NECK; supple, normal thyroid, RESPIRATORY: Diminished to auscultation CARDIOVASCULAR: Regular S1 S2, GI: soft, normoactive bowel sounds, : No Renal angle tenderness; EXTREMITIES: No edema, no clubbing, MUSCULOSKELETAL: no muscle wasting NEURO: Awake; no lateralizing signs. SKIN: No Rash PSYCH; Flat affect Assessment & Plan Assessment/Plan (1) UTI (urinary tract infection): PLAN: Plan Patient is a 68-year-old lady admitted with altered mental status 1. Acute metabolic encephalopathy ? Multifactorial including acute kidney injury suspected UTI as well as use of multiple psychotropic medications admitted to regular nursing floor for treatment of underlying etiology 03/12/2024; patient tox screen positive for phencyclidine, not on patient list. Patient hallucinations appear to have improved 2. Acute cystitis ? Patient was started on Levaquin. Patient recent cultures from 01/15/2024 grew Klebsiella sensitive to quinolones. Repeat cultures sent on admission ? Patient urine culture did not exhibit any growth 3. Acute kidney injury ? Patient started on IV hydration with subsequent monitoring of electrolytes ordered 4. Hypokalemia ? Corrected for protocol repeat labs ordered for further eval 5. PTSD ? Patient is followed by psychiatrist Dr. Issa Summers as outpatient patient is on mirtazapine at night 6. Depression with anxiety ? Patient is on duloxetine as well as buspirone 7. Hypothyroidism ? Patient is on levothyroxine home dose continued 8. COPD ? Currently not in exacerbation patient is on bronchodilator and inhaled corticosteroid plan is to continue once home meds have been reconciled 9. Dyslipidemia ?Patient is on statin therapy, continued at home dose 10. Hypertension ? Blood pressure controlled, home medications continued with dose adjustment as needed 11. History of esophagitis ? Patient is on PPI 12. Recurrent falls ? Patient send has a bruise on the right cheek requested for PT OT eval 13. Coronary artery disease ? With previous PCI. Patient is on recommended medications. Recent echo from December 2023 demonstrated EF of 60% 14. DVT prophylaxis ? On enoxaparin 15. Hypophosphatemia ? Corrected per protocol
[2024-03-12 08:27] VITALS: BP 120/64; PULSE 89; RESP 16; TEMP 36.8; O2SAT 98
--- NOTE | 2024-03-12 08:28 | PCM.DC.SUM ---
Providers Date of Admission: 03/11/24 Date of Discharge: 03/12/24 Primary Care Physician: Dr. Chrystal Michel DO Reason For Visit: ALT MENTAL STATUS Diagnosis Discharge Diagnosis (1) UTI (urinary tract infection): Status: Acute Code(s): N39.0 - Urinary tract infection, site not specified Plan Patient is a 68-year-old lady admitted with altered mental status 1. Acute metabolic encephalopathy ? Multifactorial including acute kidney injury suspected UTI as well as use of multiple psychotropic medications admitted to regular nursing floor for treatment of underlying etiology 03/12/2024; patient tox screen positive for phencyclidine, not on patient list. Patient hallucinations appear to have improved 2. Acute cystitis ? Patient was started on Levaquin. Patient recent cultures from 01/15/2024 grew Klebsiella sensitive to quinolones. Repeat cultures sent on admission ? Patient urine culture did not exhibit any growth; antibiotics discontinued 3. Acute kidney injury ? Patient started on IV hydration with subsequent monitoring of electrolytes ordered 4. Hypokalemia ? Corrected for protocol repeat labs ordered for further eval 5. PTSD ? Patient is followed by psychiatrist Dr. Issa Summers as outpatient patient is on mirtazapine at night 6. Depression with anxiety ? Patient is on duloxetine as well as buspirone 7. Hypothyroidism ? Patient is on levothyroxine home dose continued 8. COPD ? Currently not in exacerbation patient is on bronchodilator and inhaled corticosteroid plan is to continue once home meds have been reconciled 9. Dyslipidemia ?Patient is on statin therapy, continued at home dose 10. Hypertension ? Blood pressure controlled, home medications continued with dose adjustment as needed 11. History of esophagitis ? Patient is on PPI 12. Recurrent falls ? Patient send has a bruise on the right cheek requested for PT OT eval 13. Coronary artery disease ? With previous PCI. Patient is on recommended medications. Recent echo from December 2023 demonstrated EF of 60% 14. DVT prophylaxis ? On enoxaparin 15. Hypophosphatemia ? Corrected per protocol Patient was expected to stay for at least 2 midnight however given her rapid improvement and absence of any growth on her urine culture decision was made to discharge patient home Medications at Discharge Home Medications atorvastatin 80 mg tablet 80 mg PO QHS cholesterol 06/01/13 clopidogrel 75 mg tablet 75 mg PO DAILY anti platelet 06/01/13 lorazepam 1 mg tablet (Ativan) 1 mg PO TID PRN Anxiety 11/17/18 duloxetine 60 mg capsule,delayed release 60 mg PO BID 06/19/20 furosemide 40 mg tablet 40 mg PO DAILY water pill 08/23/22 liothyronine 5 mcg tablet 10 mcg PO DAILY SEE PCP 08/23/22 pantoprazole 40 mg tablet,delayed release 40 mg PO BID ACID REFLEX 30 days #60 tabs 05/06/23 baclofen 10 mg tablet 10 mg PO DAILY 10/09/23 cholecalciferol (vitamin D3) 25 mcg (1,000 unit) capsule 25 mcg PO .WEEKLY SUPPLEMENT 10/09/23 metoprolol tartrate 25 mg tablet 25 mg PO Q12H blood pressure 10/09/23 acetaminophen 500 mg tablet 500 mg PO Q6H PRN pain 11/05/23 tiotropium bromide 2.5 mcg/actuation mist for inhalation (Spiriva Respimat) 2 inh inhalation DAILY LUNGS #3 ea 02/02/24 buspirone 10 mg tablet 10 mg PO BID ANXIETY 02/09/24 diclofenac sodium 75 mg tablet,delayed release 75 mg PO BID see phyisican 02/09/24 sucralfate 100 mg/mL oral suspension 10 ml PO ACHS FOR STOMACH 02/09/24 topiramate 50 mg tablet 50 mg PO .HS SEE PCP 02/09/24 levothyroxine 125 mcg tablet 125 mcg PO DAILY@0600 THYROID #30 tabs 02/11/24 montelukast 10 mg tablet 10 mg PO QPM SEE PCP #90 tabs 02/15/24 mirtazapine 15 mg tablet 15 mg PO QHS sleep #30 tabs 03/01/24 albuterol sulfate 90 mcg/actuation aerosol inhaler 2 puff inhalation Q4H PRN COPD 03/11/24 amitriptyline 10 mg tablet 10 mg PO DAILY nerve pain 03/11/24 cyclobenzaprine 5 mg tablet 5 mg PO Q8H PRN muscle spasms 03/11/24 furosemide 20 mg tablet 20 mg PO DAILY water pill 03/11/24 hydroxychloroquine 200 mg tablet 200 mg PO BID see pcp 03/11/24 hydroxyzine HCl 50 mg tablet 50 mg PO QHS 03/11/24 ipratropium 0.5 mg-albuterol 3 mg (2.5 mg base)/3 mL nebulization soln 3 ml inhalation .Q4-6H PRN shortness of breath or wheezing 03/11/24 levothyroxine 50 mcg tablet 50 mcg PO SUSA thyroid 03/11/24 levothyroxine 75 mcg tablet 75 mcg PO MOTUWETHFR THYROID 03/11/24 temazepam 30 mg capsule 30 mg PO QHS PRN PRN SEE PCP 03/11/24 triamcinolone acetonide 0.1 % topical cream 1 applic topical BID PRN PRN RASH/IT 03/11/24 potassium, sodium phosphates 280 mg-160 mg-250 mg oral powder packet 1 packet PO BID #60 ea 03/12/24 Hospital Course Summary of Care Provided Minutes Spent on Discharge: 35 Physical Exam Narrative GENERAL: cooperative HEENT: Bruising around the right cheek EYES; Anicteric, Normal Conjunctiva NECK; supple, normal thyroid, RESPIRATORY: Diminished to auscultation CARDIOVASCULAR: Regular S1 S2, GI: soft, normoactive bowel sounds, : No Renal angle tenderness; EXTREMITIES: No edema, no clubbing, MUSCULOSKELETAL: no muscle wasting NEURO: Awake; no lateralizing signs. SKIN: No Rash PSYCH; Flat affect Weight / BMI Weight Weight: 54.38 kg Body Mass Index (BMI) 25.8 ABG / Lab / Microbiology Data 03/12/24 05:40 03/12/24 05:40 Laboratory: Laboratory Results - last 24 hr 03/11/24 09:51: Urine Color Yellow, Urine Clarity Clear, Urine pH 6.0, Ur Specific [place] 1.020, Urine Protein 30 H, Urine Glucose (UA) Normal, Urine Ketones 50 H, Urine Occult Blood 10 H, Urine Nitrite Negative, Urine Bilirubin 1 H, Urine Urobilinogen 1 H, Ur Leukocyte Esterase 25 H, Urine RBC 0 SEEN, Urine WBC 5-10 SEEN, Ur Squamous Epith Cells 0-5 SEEN, Amorphous Sediment 1+, Urine Bacteria RARE, Hyaline Casts 0-5 SEEN, Urine Mucus 0 SEEN 03/11/24 10:20: WBC 9.3, RBC 3.70 L, Hgb 9.5 L, Hct 29.7 L, MCV 80.3 L, MCH 25.7 L, MCHC 32.0, RDW Std Deviation 46.5 H, RDW Coeff of [place]aro 16.1 H, Plt Count 487 H, MPV 9.5, Immature Gran % (Auto) 0.400, Neut % (Auto) 75.6 H, Lymph % (Auto) 15.6 L, [place] % (Auto) 7.9, Eos % (Auto) 0.1, Baso % (Auto) 0.4, Absolute Neuts (auto) 7.0, Absolute Lymphs (auto) 1.44, Nucleated RBC % 0, Sodium 134 L, Potassium 3.3 L, Chloride 100, Carbon Dioxide 25.0, Anion Gap 9, BUN 36 H, Creatinine 1.35 H, Estim Creat Clear Calc 28.65, Est GFR (MDRD) Af Amer 50 L, Est GFR (MDRD) Non-Af 41 L, BUN/Creatinine Ratio 26.7 H, Glucose 97, Calcium 7.9 L, Total Bilirubin 0.40, AST 9 L, ALT 15, Alkaline Phosphatase 87, Ammonia < 10.0 L, Total Protein 7.2, Albumin 3.0 L, Globulin 4.2, Albumin/Globulin Ratio 0.7 L, TSH 0.090 L, Ethyl Alcohol < 3.0 03/11/24 10:24: Urine Opiates Screen NEGATIVE, Urine Methadone Screen NEGATIVE, Ur Barbiturates Screen NEGATIVE, Ur Phencyclidine Scrn POSITIVE H, Ur Amphetamines Screen NEGATIVE, MDMA (Ecstasy) Screen NEGATIVE, U Benzodiazepines Scrn NEGATIVE, Urine Cocaine Screen NEGATIVE, U Cannabinoids Screen NEGATIVE, Ur Drug Screen Comment 03/12/24 05:40: WBC 10.5, RBC 3.54 L, Hgb 9.0 L, Hct 28.7 L, MCV 81.1, MCH 25.4 L, MCHC 31.4 L, RDW Std Deviation 48.1 H, RDW Coeff of [place] 16.2 H, Plt Count 446, MPV 9.6, Immature Gran % (Auto) 0.700, Neut % (Auto) 78.6 H, Lymph % (Auto) 12.0 L, [place] % (Auto) 7.3, Eos % (Auto) 1.0, Baso % (Auto) 0.4, Absolute Neuts (auto) 8.3 H, Absolute Lymphs (auto) 1.26, Nucleated RBC % 0, Sodium 138, Potassium 3.9, Chloride 109 H, Carbon Dioxide 25.0, Anion Gap 4 L, BUN 12, Creatinine 0.74, Estim Creat Clear Calc 48.34, Est GFR (MDRD) Af Amer 99, Est GFR (MDRD) Non-Af 82, BUN/Creatinine Ratio 16.1, Glucose 93, Calcium 7.5 L, Phosphorus 1.0 L*, Magnesium 1.8 Microbiology: Microbiology 03/11/24 09:51 Urine, Clean Catch Urine Culture - Preliminary Culture exhibits no growth. Radiography Diagnostic Testing: Radiology Impression Brain CT 03/11/24 09:49 IMPRESSION: Chronic involutional changes of the brain. Electronically Signed: Reece Gupta MD at 11:31 EST , Facial/Sinus 03/11/24 09:49 IMPRESSION: Soft tissue swelling. No fracture seen. Electronically Signed: Reece Gupta MD at 11:37 EST , Chest X-Ray 03/11/24 10:40 IMPRESSION: No radiographic evidence of acute cardiopulmonary disease. Electronically Signed: Denise Rodriguez MD at 10:59 EST , D/C Instructions Discharge Diet: No restrictions Discharge Activity: Return to Normal Activity Call your doctor if you observe: Fever of 101 or Higher, Shortness of breath, Fainting spells and Chest pain Meaningful Use Info Meaningful Use Meaningful Use Diagnoses (Choose all that apply): None applicable Ischemic Stroke Statin Dosing Therapy Reference: STATIN DOSE THERAPY REFERENCE: * Patients > 75 years receive moderate or high dose statin therapy. * Patients 75 years or YOUNGER should receive HIGH intensity statin dose unless contraindicated. You will be required to document reason for non-treatment if statin daily dose does not meet guidelines. HIGH DOSE STATIN THERAPY DAILY Atorvastatin > than or = to 40 mg Rosuvastatin > than or = to 20 mg Amlodipine + Atorvastatin > than or = to 2.5/40 mg Ezetimibe + Simvastatin 10/80 mg Simvastatin 80mg Discharge Plan Admission Admit Date/Time: 03/11/24 12:15 Attending Provider: Donnie Rogers Primary Care Provider: Chrystal Michel Discharge Orders/Prescriptions Prescriptions: New potassium, sodium phosphates 280-160-250 mg Powder In Packet 1 packet PO BID Qty: 60 0RF Continued lorazepam [Ativan] 1 mg tablet 1 mg PO TID PRN (Reason: Anxiety) baclofen 10 mg tablet 10 mg PO DAILY cholecalciferol (vitamin D3) 25 mcg (1,000 unit) capsule 25 mcg PO .WEEKLY mirtazapine 15 mg tablet 15 mg PO QHS Qty: 30 2RF acetaminophen 500 mg tablet 500 mg PO Q6H PRN (Reason: pain) clopidogrel 75 MG tablet 75 mg PO DAILY atorvastatin 80 MG tablet 80 mg PO QHS metoprolol tartrate 25 mg tablet 25 mg PO Q12H duloxetine 60 MG capsule 60 mg PO BID furosemide 40 mg Tablet 40 mg PO DAILY Rx Instructions: take with 20mg tablet for a total of 60mg daily liothyronine 5 mcg tablet 10 mcg PO DAILY pantoprazole 40 mg Tablet,Delayed Release (Dr/Ec) 40 mg PO BID 30 Days Qty: 60 0RF buspirone 10 mg tablet 10 mg PO BID sucralfate 100 mg/mL suspension 10 ml PO ACHS diclofenac sodium 75 mg tablet,delayed release (DR/EC) 75 mg PO BID topiramate 50 mg tablet 50 mg PO .HS levothyroxine 125 mcg Tablet 125 mcg PO DAILY@0600 Qty: 30 0RF hydroxyzine HCl 50 mg tablet 50 mg PO QHS levothyroxine 50 mcg tablet 50 mcg PO SUSA amitriptyline 10 mg tablet 10 mg PO DAILY cyclobenzaprine 5 mg tablet 5 mg PO Q8H PRN (Reason: muscle spasms) furosemide 20 mg tablet 20 mg PO DAILY Rx Instructions: take with 40mg tablet for a total of 60mg daily hydroxychloroquine 200 mg tablet 200 mg PO BID ipratropium-albuterol 0.5 mg-3 mg(2.5 mg base)/3 mL solution for nebulization 3 ml inhalation .Q4-6H PRN (Reason: shortness of breath or wheezing) levothyroxine 75 mcg tablet 75 mcg PO MOTUWETHFR temazepam 30 mg capsule 30 mg PO QHS PRN PRN (Reason: SEE PCP) triamcinolone acetonide 0.1 % cream 1 applic topical BID PRN PRN (Reason: RASH/IT) albuterol sulfate 90 mcg/actuation HFA aerosol inhaler 2 puff INHALATION Q4H PRN (Reason: COPD) Spiriva Respimat 2.5 mcg/actuation mist 2 inh INHALATION DAILY Qty: 3 3RF montelukast 10 mg tablet 10 mg PO QPM Qty: 90 3RF Referrals / Follow Up: Chrystal Michel DO [Primary Care Provider] - Disposition Disposition (needs filled in before D/C Order can be placed): Home, Self Care Charges/Coding Visit Charges Inpatient E&M: 40973 Disch Hosp >30min
[2024-03-12] MEDS: Potassium Phosphate 40 MM in 0.9% Normal Saline (500mL Bag) 500 ML 62.5 MM IV (09:52)
[2024-03-12] MEDS: busPIRone 5 MG Tablet 10 MG PO (09:57)
[2024-03-12] MEDS: DULoxetine Hcl 60 MG Capsule PO (09:58)
[2024-03-12] MEDS: Baclofen 10 MG Tablet PO (09:58)
[2024-03-12 09:59] VITALS: PULSE 89
[2024-03-12] MEDS: Metoprolol Tartrate 25 MG Tablet PO (09:59)
[2024-03-12] MEDS: Pantoprazole Sodium 40 MG Tablet PO (10:00)
[2024-03-12] MEDS: Clopidogrel Bisulfate 75 MG Tablet PO (10:00)
[2024-03-12] MEDS: Enoxaparin 30 MG/0.3 ML Syringe SC (10:01)
[2024-03-12] MEDS: Na Biphos/Potassium Phosphate PACKET 1 PACKET PO (10:06)
--- NOTE | 2024-03-12 10:06 | CASEMGMT ---
Addendum entered by Harshil Smith 03/12/24 11:26: Pt declines wanting any HHC for SN or therapy, stating she feels she is at her baseline physically and does not need a nurse for f/u for education/medication mgnt. Original Note: DEWAYNE LOPEZ NOTE: DEWAYNE LOPEZ informed pt would like another palliative referral. Palliative referral was sent by this DEWAYNE LOPEZ 01/15/24, but pt states has not been able to connect w/them and would still like palliative care. Order received from Dr Rogers and referral sent to [facility] palliative via secure e-mail. Pt made aware. Veronica JARVISN DEWAYNE CM
--- NOTE | 2024-03-12 10:51 | CASEMGMT ---
Social Work Phone call to [facility] to message left to update that pt will discharge home today. TAO Altamirano
--- NOTE | 2024-03-14 09:40 | CASEMGMT ---
Social Work- YAMILETH spoke with Shirley Mcdermott, to follow up on pt discharge. Sharron reports that she will follow up with Dr Summers as well. TAO Saul
--- NOTE | 2024-03-15 14:30 | CASEMGMT ---
RN CM received message from hospice they did not receive referral for palliative care for pt and asked RN CM to send referral over. RN CM emailed referral and face sheet for Palliative care.
== END 2024-03-12 12:07 | disposition home or self-care (01) | DRG 682 ==
LOC: ED 13:05 → MS3 14:21
PROVIDERS: Admitting Provider Internal Medicine; Emergency Provider Emergency Medicine; PCP Family Medicine; Visit Provider Internal Medicine
DX: N17.9 Acute kidney failure, unspecified (principal); G93.41 Metabolic encephalopathy; J96.11 Chronic respiratory failure with hypoxia; I11.0 Hypertensive heart disease with heart failure; I50.9 Heart failure, unspecified; J44.9 Chronic obstructive pulmonary disease, unspecified; E89.0 Postprocedural hypothyroidism; F32.A Depression, unspecified; F41.9 Anxiety disorder, unspecified; E86.0 Dehydration; E87.6 Hypokalemia; I25.10 Atherosclerotic heart disease of native coronary artery without angina pectoris; M79.7 Fibromyalgia; E78.5 Hyperlipidemia, unspecified; E83.39 Other disorders of phosphorus metabolism; F43.10 Post-traumatic stress disorder, unspecified; G89.29 Other chronic pain; Z99.81 Dependence on supplemental oxygen; Z79.02 Long term (current) use of antithrombotics/antiplatelets; Z79.51 Long term (current) use of inhaled steroids; Z79.899 Other long term (current) drug therapy; Z87.891 Personal history of nicotine dependence
CPT/HCPCS: 36415; 70450; 70486; 71045; 80048; 80053; 80307; 81001; 82077; 82140; 83735; 84100; 84443; 85025; 87086; 87088; 93005; 94668; 99285; J7030; J7040; A4216

== ENCOUNTER 2024-03-30 22:18 | Emergency (ER) | payer MEDICARE, SELFPAY ==
[2024-03-30] VITALS (9 sets, daily range): BP systolic 93–124; BP diastolic 49–57; PULSE 94–98; RESP 16–25; TEMP 36.7; O2SAT 89–98; BMI 27.9
--- NOTE | 2024-03-30 22:32 | ED.VIS.DYS ---
HPI History of Present Illness Chief Complaint: Shortness of Breath Informant: patient Onset/Context/Timing Onset: Yesterday Context: gradual Timing: Continuous Quality: Positive for Wheezing Worsened by: - (Cold air) Relieved by: Nothing Associated Symptoms cough, rhinorrhea, fever, subjective, chills and green sputum; Negative for post nasal drip, ear pain, sore throat, sweats, clear sputum, white sputum or yellow sputum Chest Pain: Positive for Tightness Narrative Narrative: Patient presents with shortness of breath that began yesterday. Patient states it is gradually getting worse. Patient states her breathing is worse when she goes out in the cold air. Patient states nothing seems to help with it. Patient states she feels like she is wheezing. Patient states she is coughing up some green sputum. Patient admits to subjective fevers and chills. Patient also admits to some rhinorrhea. Patient admits to some tightness in the left side of her chest which radiates into her left arm and neck. Patient denies any nausea or vomiting. PE Risk Factors: Negative for Cancer, OCP + Smoking + > 35, Prior DVT or PE, Recent immobilization, Recent surgery or Recent travel [facility] Medical History PTSD (post-traumatic stress disorder) Hyperthyroidism GI bleed Former smoker CPAP (continuous positive airway pressure) dependence On home oxygen therapy Myocardial infarct Congestive heart failure (CHF) Migraines Fall Contusion of nose Periorbital contusion of right eye Contusion of multiple fingers Chronic hypoxic respiratory failure Contusion of scalp Normocytic anemia Fibromyalgia Chronic respiratory failure with hypoxia RAUL (obstructive sleep apnea) Incisional hernia TIA (transient ischemic attack) Osteoporosis Osteoarthritis Thyroid disorder Diverticulitis History of heart attack Sleep apnea History of pneumonia COPD (chronic obstructive pulmonary disease) History of bronchitis Asthma HTN (hypertension) Depression Anxiety Nausea and vomiting GERD (gastroesophageal reflux disease) Heart disease spinal stimulator Spinal stenosis Chronic back pain Hypothyroidism Home Medications ?Medication ?Instructions ?Recorded ?Last Taken ?Type atorvastatin 80 mg tablet 80 mg PO QHS cholesterol 06/01/13 05/25/14 History 80 MG clopidogrel 75 mg tablet 75 mg PO DAILY anti platelet 06/01/13 11/18/23 History lorazepam 1 mg tablet (Ativan) 1 mg PO TID PRN Anxiety 11/17/18 Unknown History duloxetine 60 mg capsule,delayed 60 mg PO BID 06/19/20 Unknown History release furosemide 40 mg tablet 40 mg PO DAILY water pill 08/23/22 Unknown History liothyronine 5 mcg tablet 10 mcg PO DAILY SEE PCP 08/23/22 Unknown History pantoprazole 40 mg tablet,delayed 40 mg PO BID ACID REFLEX 30 days 05/06/23 Unknown Rx release #60 tabs baclofen 10 mg tablet 10 mg PO DAILY 10/09/23 Unknown History cholecalciferol (vitamin D3) 25 25 mcg PO .WEEKLY SUPPLEMENT 10/09/23 Unknown History mcg (1,000 unit) capsule metoprolol tartrate 25 mg tablet 25 mg PO Q12H blood pressure 10/09/23 Unknown History acetaminophen 500 mg tablet 500 mg PO Q6H PRN pain 11/05/23 Unknown History tiotropium bromide 2.5 2 inh inhalation DAILY LUNGS #3 ea 02/02/24 Unknown Rx mcg/actuation mist for inhalation (Spiriva Respimat) buspirone 10 mg tablet 10 mg PO BID ANXIETY 02/09/24 Unknown History diclofenac sodium 75 mg 75 mg PO BID see phyisican 02/09/24 Unknown History tablet,delayed release sucralfate 100 mg/mL oral 10 ml PO ACHS FOR STOMACH 02/09/24 Unknown History suspension topiramate 50 mg tablet 50 mg PO .HS SEE PCP 02/09/24 Unknown History levothyroxine 125 mcg tablet 125 mcg PO DAILY@0600 THYROID #30 02/11/24 Unknown Rx tabs montelukast 10 mg tablet 10 mg PO QPM SEE PCP #90 tabs 02/15/24 Unknown Rx mirtazapine 15 mg tablet 15 mg PO QHS sleep #30 tabs 03/01/24 Unknown Rx albuterol sulfate 90 mcg/actuation 2 puff inhalation Q4H PRN COPD 03/11/24 Unknown History aerosol inhaler amitriptyline 10 mg tablet 10 mg PO DAILY nerve pain 03/11/24 Unknown History cyclobenzaprine 5 mg tablet 5 mg PO Q8H PRN muscle spasms 03/11/24 Unknown History furosemide 20 mg tablet 20 mg PO DAILY water pill 03/11/24 Unknown History hydroxychloroquine 200 mg tablet 200 mg PO BID see pcp 03/11/24 Unknown History hydroxyzine HCl 50 mg tablet 50 mg PO QHS 03/11/24 Unknown History ipratropium 0.5 mg-albuterol 3 mg 3 ml inhalation .Q4-6H PRN 03/11/24 Unknown History (2.5 mg base)/3 mL nebulization shortness of breath or wheezing soln levothyroxine 50 mcg tablet 50 mcg PO SUSA thyroid 03/11/24 Unknown History levothyroxine 75 mcg tablet 75 mcg PO MOTUWETHFR THYROID 03/11/24 Unknown History potassium, sodium phosphates 280 1 packet PO BID #60 ea 03/12/24 Unknown Rx mg-160 mg-250 mg oral powder packet levofloxacin 750 mg tablet 750 mg PO DAILY #7 tabs 03/31/24 Unknown Rx Allergy/AdvReac Type Severity Reaction Status Date / Time cefaclor (From [facility]) Allergy Itching Verified 03/30/24 22:19 clarithromycin Allergy Hives Verified 03/30/24 22:19 doxycycline Allergy Itching Verified 03/30/24 22:19 Penicillins Allergy Hives Verified 03/30/24 22:19 Sulfa (Sulfonamide Allergy Hives Verified 03/30/24 22:19 Antibiotics) biotin AdvReac Unknown Unknown Verified 03/30/24 22:19 zolpidem (From Ambien) AdvReac Unknown mental Verified 03/30/24 22:19 issues Family History Father Asthma Heart disease Grandmother Breast cancer Diabetes Mother Heart disease COPD (chronic obstructive pulmonary disease) Other Cancer Surgical History Hx of BKA History of appendectomy History of incisional hernia repair History of incisional hernia repair (~12/20/18) Hx of cholecystectomy History of esophagogastroduodenoscopy (EGD) (~07/2018) Previous back surgery S/P hysterectomy S/P carpal tunnel release S/P knee surgery S/P correction of deviated nasal septum Status post thyroidectomy H/O heart artery stent Status post amputation of right foot Social History household members: spouse Smoking Status: Former smoker Tobacco: How many years used: 25 second hand exposure: Yes alcohol intake: never substance use type: does not use caffeine: Yes what type of physical activity do you participate in: none frequency: does not exercise ROS ROS ED Constitutional Constitutional ED: Reports chills and fever(s) Eyes Eyes: Denies blurry vision or change in vision ENT ENT ED: Reports rhinorrhea; Denies sore throat Cardiovascular Cardiovascular: Reports chest pain; Denies palpitations Respiratory/Chest Respiratory/Chest: Reports cough and dyspnea Gastrointestinal Gastrointestinal: Denies nausea or vomiting Genitourinary Genitourinary ED: Reports urinary frequency; Denies dysuria or hematuria Musculoskeletal Musculoskeletal: Reports back pain and neck pain Integumentary Denies abscess or rash Neurologic Neurologic: Reports headache(s); Denies weakness Allergic/Immunologic Allergic/Immunologic ED: Denies mouth swelling or urticaria EXAM Physical Exam Const Vital Signs: 03/30/24 22:19 03/30/24 22:28 03/30/24 22:32 Temperature 98.1 F Temperature Source Oral Pulse Rate 95 94 Respiratory Rate 20 H 18 Respiratory Effort Normal Respiratory Pattern Blood Pressure 124/57 H Blood Pressure Mean 79 Pulse Ox 95 95 Oxygen Delivery Method Nasal Cannula Oxygen Flow Rate (L/min) 4 03/30/24 22:45 03/30/24 23:00 03/30/24 23:03 Temperature Temperature Source Pulse Rate 95 94 Respiratory Rate 25 H 17 Respiratory Effort Respiratory Pattern Blood Pressure 106/53 L 103/49 L Blood Pressure Mean 68 65 Pulse Ox 95 98 Oxygen Delivery Method Nasal Cannula Oxygen Flow Rate (L/min) 4 03/30/24 23:09 03/30/24 23:09 03/30/24 23:15 Temperature Temperature Source Pulse Rate 98 96 Respiratory Rate 16 20 H Respiratory Effort Respiratory Pattern Normal Blood Pressure 114/50 L Blood Pressure Mean 69 Pulse Ox 97 93 Oxygen Delivery Method Nasal Cannula Oxygen Flow Rate (L/min) 2 03/30/24 23:30 03/30/24 23:40 03/30/24 23:45 Temperature Temperature Source Pulse Rate Respiratory Rate Respiratory Effort Respiratory Pattern Blood Pressure 104/56 L 93/51 L Blood Pressure Mean 71 66 Pulse Ox 90 89 Oxygen Delivery Method Oxygen Flow Rate (L/min) 03/31/24 00:00 03/31/24 00:15 03/31/24 00:30 Temperature Temperature Source Pulse Rate 99 97 98 Respiratory Rate 15 17 16 Respiratory Effort Respiratory Pattern Blood Pressure 114/61 111/58 L 113/59 L Blood Pressure Mean 78 75 76 Pulse Ox 95 95 95 Oxygen Delivery Method Oxygen Flow Rate (L/min) 03/31/24 00:45 03/31/24 01:00 03/31/24 01:15 Temperature Temperature Source Pulse Rate 98 101 H 100 Respiratory Rate 14 16 18 Respiratory Effort Respiratory Pattern Blood Pressure 117/63 117/68 111/52 L Blood Pressure Mean 79 83 68 Pulse Ox 95 94 94 Oxygen Delivery Method Oxygen Flow Rate (L/min) 03/31/24 01:30 03/31/24 01:45 03/31/24 02:00 Temperature Temperature Source Pulse Rate 102 H 101 H 101 H Respiratory Rate 18 17 16 Respiratory Effort Respiratory Pattern Blood Pressure 95/52 L 87/55 L 107/54 L Blood Pressure Mean 67 67 70 Pulse Ox 94 95 95 Oxygen Delivery Method Oxygen Flow Rate (L/min) 03/31/24 02:14 03/31/24 02:14 Temperature Temperature Source Pulse Rate 99 Respiratory Rate 25 H Respiratory Effort Respiratory Pattern Tachypnea Blood Pressure Blood Pressure Mean Pulse Ox 96 Oxygen Delivery Method Nasal Cannula Oxygen Flow Rate (L/min) 4 Positive well nourished and well developed General Appearance ED: well developed and NAD HEENT Reports moist mucous membranes atraumatic Neck supple, no meningeal signs and no JVD Resp normal respiratory effort Auscultation: rhonchi throughout Cardio regular rate and regular rhythm GI non-tender and non-distended Palpation: soft Neuro oriented x3, CN's II-XII intact bilaterally and no sensory deficits noted Pj Coma Scale: document GCS findings Spontaneous Obeys Commands Oriented 15 Sensorium / Orientation: alert Speech: speech normal Motor Exam: strength 5/5 throughout Psych mental status grossly normal MDM MDM MDM Narrative Medical decision making narrative: Differential diagnose includes pneumonia, COPD exacerbation, cardiac dysrhythmia, cardiac ischemia, bronchitis, viral illness, congestive heart failure, and anxiety. Patient has a Wells score of 0. I do not feel this is from a pulmonary embolism. EKG will be obtained to assess for cardiac dysrhythmia and cardiac ischemia. Chest x-ray will be obtained to assess for pneumonia, congestive heart failure, and pneumothorax. CBC will be obtained to assess for leukocytosis and anemia. Basic metabolic profile will be obtained to assess for electrolyte abnormality and renal function. High-sensitivity troponin will be obtained to assess for cardiac ischemia. 2-hour repeat high-sensitivity troponin will be obtained to assess for ongoing cardiac ischemia. History & Record Review Discussion w/independent historian: Patient and Family Additional record(s) reviewed:: Prior labs Lab Data Attestation: I reviewed the patient's lab results. Lab results narrative: CBC was reviewed. There is a mild anemia with a hemoglobin of 8.2 and hematocrit of 27.4. These are consistent with previous results. Platelets are slightly elevated at 495. Basic metabolic profile was reviewed and was essentially within normal limits. Initial high-sensitivity troponin was reviewed and was normal at 11. BNP was reviewed and was normal at 64.4. 2-hour repeat high-sensitivity troponin was reviewed and was normal at 10. Labs: Laboratory Results - last 24 hr 03/30/24 03/31/24 22:37 01:08 WBC 9.6 RBC 3.35 L Hgb 8.2 L Hct 27.4 L MCV 81.8 MCH 24.5 L MCHC 29.9 L RDW Std Deviation 49.1 H RDW Coeff of [place] 16.4 H Plt Count 495 H MPV 9.8 Immature Gran % (Auto) 0.200 Neut % (Auto) 36.6 L Lymph % (Auto) 47.0 H [place] % (Auto) 12.9 H Eos % (Auto) 2.5 Baso % (Auto) 0.8 Absolute Neuts (auto) 3.5 Absolute Lymphs (auto) 4.50 Nucleated RBC % 0 Sodium 143 Potassium 3.5 Chloride 113 H Carbon Dioxide 26.0 Anion Gap 5 BUN 27 H Creatinine 0.99 Estim Creat Clear Calc 42.88 Est GFR (MDRD) Af Amer 71 Est GFR (MDRD) Non-Af 59 L BUN/Creatinine Ratio 27.2 H Glucose 120 H Calcium 8.5 Troponin I High Sens 11 10 B-Natriuretic Peptide 64.4 Radiography Chest X-Ray - ED: 2 View, Read by ED Physician, Read by Radiologist and Right Infiltrate Diagnostic Testing: Clinical Impression(s) from Imaging Studies Chest X-Ray 03/30/24 22:55 IMPRESSION: Linear opacity in the right lower lobe which may represent atelectasis or possibly early pneumonia. There are no effusions. Electronically Signed: Berny Ram MD at 0:04 EST , PA and lateral chest x-ray was obtained. There are 2 views. On my independent interpretation, lung prasad show a linear opacity in the right lower lobe which could be atelectasis or pneumonia. There is normal cardiac silhouette. Bony thorax is normal. Radiologist also interpreted the x-ray and agrees. EKG Initial EKG: Interpretation: Sinus Rhythm (96) and Non-Specific ST Changes Comments: EKG was obtained. On my independent interpretation, it showed a normal sinus rhythm with a rate of 96. SC interval, QRS interval, and QTc intervals were all normal. [place] was normal. There are nonspecific ST-T wave changes. Prior EKG tracings: available for review Prior: Unchanged (03/11/2024) Treatment and Re-Evaluation :: Patient was given albuterol aerosol. Patient was still feeling somewhat short of breath on reevaluation. Patient was given a repeat albuterol aerosol. Patient felt better after this and was sleeping on reevaluation. Patient was given IV fluids. Patient was given a dose of Zithromax here. Patient was given a prescription for Zithromax. Patient was advised of her findings. Patient was instructed to continue her inhalers and aerosols as previously prescribed. Patient was instructed to follow-up with her primary care physician in 5 to 7 days. Patient was instructed to return if worse in any way. Patient understood and was agreeable with the plan. All questions were answered. Discharge Plan Triage Chief Complaint: Shortness of Breath ED Provider: Néstor Kirkpatrick Dx/Rx/DC Orders Clinical Impression: Acute exacerbation of chronic obstructive pulmonary disease (COPD), Community acquired pneumonia, Dyspnea Instructions: ED COPD Flare, ED Pneumonia (Adult) Prescriptions: New levofloxacin 750 mg tablet 750 mg PO DAILY Qty: 7 0RF No Action lorazepam [Ativan] 1 mg tablet 1 mg PO TID PRN (Reason: Anxiety) baclofen 10 mg tablet 10 mg PO DAILY cholecalciferol (vitamin D3) 25 mcg (1,000 unit) capsule 25 mcg PO .WEEKLY mirtazapine 15 mg tablet 15 mg PO QHS Qty: 30 2RF acetaminophen 500 mg tablet 500 mg PO Q6H PRN (Reason: pain) clopidogrel 75 MG tablet 75 mg PO DAILY atorvastatin 80 MG tablet 80 mg PO QHS metoprolol tartrate 25 mg tablet 25 mg PO Q12H duloxetine 60 MG capsule 60 mg PO BID furosemide 40 mg Tablet 40 mg PO DAILY Rx Instructions: take with 20mg tablet for a total of 60mg daily liothyronine 5 mcg tablet 10 mcg PO DAILY pantoprazole 40 mg Tablet,Delayed Release (Dr/Ec) 40 mg PO BID 30 Days Qty: 60 0RF buspirone 10 mg tablet 10 mg PO BID sucralfate 100 mg/mL suspension 10 ml PO ACHS diclofenac sodium 75 mg tablet,delayed release (DR/EC) 75 mg PO BID topiramate 50 mg tablet 50 mg PO .HS levothyroxine 125 mcg Tablet 125 mcg PO DAILY@0600 Qty: 30 0RF hydroxyzine HCl 50 mg tablet 50 mg PO QHS levothyroxine 50 mcg tablet 50 mcg PO SUSA amitriptyline 10 mg tablet 10 mg PO DAILY cyclobenzaprine 5 mg tablet 5 mg PO Q8H PRN (Reason: muscle spasms) furosemide 20 mg tablet 20 mg PO DAILY Rx Instructions: take with 40mg tablet for a total of 60mg daily hydroxychloroquine 200 mg tablet 200 mg PO BID ipratropium-albuterol 0.5 mg-3 mg(2.5 mg base)/3 mL solution for nebulization 3 ml inhalation .Q4-6H PRN (Reason: shortness of breath or wheezing) levothyroxine 75 mcg tablet 75 mcg PO MOTUWETHFR albuterol sulfate 90 mcg/actuation HFA aerosol inhaler 2 puff INHALATION Q4H PRN (Reason: COPD) potassium, sodium phosphates 280-160-250 mg Powder In Packet 1 packet PO BID Qty: 60 0RF Spiriva Respimat 2.5 mcg/actuation mist 2 inh INHALATION DAILY Qty: 3 3RF montelukast 10 mg tablet 10 mg PO QPM Qty: 90 3RF Primary Care Provider: Chrystal Michel Referrals: Chrystal Michel DO [Primary Care Provider] - 5-7 Days Print Language: Nigerien Disposition Disposition: Home, Self Care
--- NOTE | 2024-03-30 22:55 | RAD_ITS ---
EXAM: XR CHEST, 2 VIEWS CLINICAL INDICATION: Cough TECHNIQUE: Frontal and lateral views of the chest. COMPARISON: 03/11/2024 FINDINGS: LUNGS AND PLEURAL SPACES: There is atelectasis in the right lower lobe. No pneumothorax. No effusion. HEART: Unremarkable. Cardiac silhouette not enlarged. MEDIASTINUM: Central airways and mediastinal contour are unremarkable. BONES/JOINTS: There is hardware in the lower thoracic and lumbar spine. No acute fracture. SOFT TISSUES: Unremarkable. RAD/Chest PA and Lateral IMPRESSION: Linear opacity in the right lower lobe which may represent atelectasis or possibly early pneumonia. There are no effusions. Electronically Signed: Berny Ram MD at 0:04 EST ,
--- NOTE | 2024-03-30 22:55 | EKG12_ITS ---
Test Reason : sob Blood Pressure : */* mmHG Vent. Rate : 96 BPM Atrial Rate : 96 BPM P-R Int : 164 ms QRS Dur : 92 ms QT Int : 386 ms P-R-T Axes : 57 51 57 degrees QTcB Int : 487 ms Normal sinus rhythm Nonspecific ST abnormality Abnormal ECG Confirmed by Antony Jung ([id number]), scientific publications editor DAKOTAH DELVALLE ([id number]) on 04/01/2024 10:43:05 AM Referred By: Es Confirmed By: Antony Jung
[2024-03-30 23:03] LABS: Absolute Neutrophil Count 3.5 X10^3/uL (2.0-7.7); Basophil# 0.08 X10^3/uL; Basophil% 0.8 % (0-1); Eosinophil# 0.24 X10^3/uL; Eosinophils% 2.5 % (0-5); Hematocrit 27.4 % (37-47); Hemoglobin 8.2 g/dL (12.0-15.0); Mean Corp Hgb Conc 29.9 g/dL (32-36); Mean Corpuscular Hgb 24.5 pg (27.0-32.0); Mean Corpuscular Volume 81.8 fL (81-99); Mean Platelet Vol. 9.8 fl (6.2-12.0); Monocyte# 1.23 X10^3/uL; Monocyte% 12.9 % (0-10); NRBC Flagged by Analyzer 0 % (0-5); Neutrophil % 36.6 % (47-70); Platelet Count 495 K/mm3 (150-450); RBC Distribution Width CV 16.4 % (11.6-14.6); RBC Distribution Width SD 49.1 fl (35.1-43.9); Red Blood Count 3.35 M/mm3 (4.2-5.4); White Blood Count 9.6 K/mm3 (4.4-11.0)
[2024-03-30] MEDS: Albuterol 2.5 MG/3 ML VIAL.NEB. INHALATION (23:07)
[2024-03-30 23:21] LABS: Anion Gap 5 (5-15); BUN 27 mg/dL (7-18); BUN/Creat Ratio 27.2 RATIO (10-20); Calcium,Total 8.5 mg/dL (8.5-10.1); Chloride 113 mmol/L (98-107); Creatinine, Serum 0.99 mg/dL (0.55-1.02); EST Glomerular Filtration Rate 59 mL/min (>60); Est Glom Filt Rate - Afr Amer 71 mL/min (>60); Estimated Creatinine Clearance 42.88 ml/min; Glucose 120 mg/dL (74-106); Potassium 3.5 mmol/L (3.5-5.1); Sodium Level 143 mmol/L (136-145); Troponin-I HS (w/2H Reflex) 11 pg/mL (3.0-54.0)
[2024-03-30 23:22] LABS: BNP,B-Type NATRIURETIC PEPTIDE 64.4 pg/mL (0-100)
[2024-03-31] VITALS (11 sets, daily range): BP systolic 87–117; BP diastolic 47–68; PULSE 97–102; RESP 14–25; TEMP 36.6; O2SAT 94–100
[2024-03-31 00:59] LABS: Reflex Troponin-HS? (from REC) Y
[2024-03-31 02:01] LABS: Troponin-I HS 10 pg/mL (3.0-54.0)
[2024-03-31] MEDS: 0.9% Normal Saline (500mL Bag) 500 ML 999 ML IV (02:11)
[2024-03-31] MEDS: Albuterol 2.5 MG/3 ML VIAL.NEB. INHALATION (02:13)
[2024-03-31] MEDS: levoFLOXacin 750 MG Tablet PO (02:57)
== END 2024-03-31 03:01 | disposition home or self-care (01) ==
PROVIDERS: Emergency Provider Emergency Medicine; PCP Family Medicine; Visit Provider Emergency Medicine
DX: J44.0 Chronic obstructive pulmonary disease with (acute) lower respiratory infection (principal); J96.11 Chronic respiratory failure with hypoxia; I50.9 Heart failure, unspecified; I11.0 Hypertensive heart disease with heart failure; J44.1 Chronic obstructive pulmonary disease with (acute) exacerbation; J18.9 Pneumonia, unspecified organism; E03.9 Hypothyroidism, unspecified; G47.33 Obstructive sleep apnea (adult) (pediatric); M54.9 Dorsalgia, unspecified; G89.29 Other chronic pain; Z99.81 Dependence on supplemental oxygen; Z79.02 Long term (current) use of antithrombotics/antiplatelets; Z79.890 Hormone replacement therapy; Z79.899 Other long term (current) drug therapy; Z87.891 Personal history of nicotine dependence; Z86.73 Personal history of transient ischemic attack (TIA), and cerebral infarction without residual deficits
CPT/HCPCS: 71046; 80048; 83880; 84484; 85025; 93005; 94640; 96360; 99285; A4216

== ENCOUNTER → 2024-04-01 | Outpatient (CLI) | payer MEDICARE, SELFPAY ==
--- NOTE | 2024-04-01 13:20 | RAD_ITS ---
EXAM: XR RIGHT SHOULDER COMPLETE, 2 OR MORE VIEWS CLINICAL INDICATION: PAIN TECHNIQUE: Two or more views of the right shoulder. COMPARISON: No relevant prior studies available. FINDINGS: BONES/JOINTS: Unremarkable. No acute fracture. No subluxation. Normal alignment. Preservation of the joint space. No sclerotic or destructive changes observed. SOFT TISSUES: Unremarkable. No soft tissue swelling or gas. No radiopaque foreign body. RAD/Shoulder min 2 Views IMPRESSION: Negative right shoulder x-rays. Electronically Signed: Trev Balbuena MD at 20:32 EST ,
== END | disposition home or self-care (01) ==
LOC: MTRAD 13:12
PROVIDERS: PCP Family Medicine; Referring Provider Family Medicine; Visit Provider Family Medicine
DX: M25.511 Pain in right shoulder (principal)
CPT/HCPCS: 73030

== ENCOUNTER → 2024-04-11 | Outpatient (CLI) | payer MEDICARE, SELFPAY ==
[2024-04-11 17:43] LABS: Absolute Lymphocyte Count 1.83 X10^3/uL (0.83-4.51); Absolute Neutrophil Count 20.3 X10^3/uL (2.0-7.7); Basophil# 0.03 X10^3/uL; Basophil% 0.1 % (0-1); Hematocrit 28.3 % (37-47); Hemoglobin 8.6 g/dL (12.0-15.0); Lymphocyte # 1.83 X10^3/ul (0.83-4.51); Lymphocyte % 7.7 % (19-41); Mean Corp Hgb Conc 30.4 g/dL (32-36); Mean Corpuscular Hgb 24.3 pg (27.0-32.0); Mean Corpuscular Volume 79.9 fL (81-99); Mean Platelet Vol. 9.3 fl (6.2-12.0); Monocyte# 1.29 X10^3/uL; Monocyte% 5.5 % (0-10); NRBC Flagged by Analyzer 0 % (0-5); Neutrophil # 20.28 X10^3/uL (2.7-7.7); Neutrophil % 85.9 % (47-70); POSITIVE DIFFERENTIAL YES; Platelet Count 513 K/mm3 (150-450); RBC Distribution Width CV 18.6 % (11.6-14.6); RBC Distribution Width SD 53.2 fl (35.1-43.9); Red Blood Count 3.54 M/mm3 (4.2-5.4); White Blood Count 23.6 K/mm3 (4.4-11.0)
[2024-04-11 18:19] LABS: Differential Indicated SCAN CRITERIA MET
[2024-04-11 18:21] LABS: Anisocytosis RARE; Microcytosis RARE; Platelet Estimate MOD INC (ADEQ); Red Cell Morphology N CYTIC NORMAL (NORM C&C)
[2024-04-11 18:53] LABS: ALB/GLOB Ratio 0.6 RATIO (0.9-2.4); AST(SGOT) 19 U/L (15-37); Alanine Aminotransfer ALT/SGPT 21 U/L (13-56); Albumin, Serum 2.5 g/dL (3.2-5.0); Alkaline Phosphatase 54 U/L (45-117); Anion Gap 5 (5-15); BUN 29 mg/dL (7-18); BUN/Creat Ratio 26.4 RATIO (10-20); Calcium,Total 8.1 mg/dL (8.5-10.1); Chloride 109 mmol/L (98-107); EST Glomerular Filtration Rate 52 mL/min (>60); Est Glom Filt Rate - Afr Amer 63 mL/min (>60); Ferritin 7 ng/mL (8-252); Free T3 0.9 pg/mL (2.18-3.98); Globulin 3.9 g/dL (2.2-4.2); Glucose 144 mg/dL (74-106); Iron 31 ug/dL (50-170); Magnesium 2.1 mg/dL (1.6-2.6); Phosphorus 3.4 mg/dL (2.5-4.9); Protein, Total 6.4 g/dL (6.4-8.2); Sodium Level 141 mmol/L (136-145); T4 Free Direct 0.75 ng/dL (0.76-1.46); Thyroid Stim Hormone (TSH) 0.178 uIU/mL (0.358-3.740)
[2024-04-12 09:29] LABS: Vitamin B12 169 pg/mL (211-911)
== END | disposition home or self-care (01) ==
LOC: BFHLAB 16:19
PROVIDERS: PCP Family Medicine; Referring Provider Family Medicine; Visit Provider Family Medicine
DX: E03.9 Hypothyroidism, unspecified (principal); Z51.81 Encounter for therapeutic drug level monitoring; E83.42 Hypomagnesemia; E83.39 Other disorders of phosphorus metabolism; D50.9 Iron deficiency anemia, unspecified; E53.8 Deficiency of other specified B group vitamins
CPT/HCPCS: 36415; 80053; 82607; 82728; 83540; 83735; 84100; 84439; 84443; 84481; 85025

== ENCOUNTER 2024-04-26 16:53 | Inpatient (IN) | payer MEDICARE, SELFPAY ==
[2024-04-26] VITALS (17 sets, daily range): BP systolic 101–121; BP diastolic 48–65; PULSE 100–113; RESP 16–30; TEMP 36.6–37.1; O2SAT 80–98; BMI 25.5; BMI 25.7
--- NOTE | 2024-04-26 17:10 | EKG12_ITS ---
Test Reason : SOB Blood Pressure : */* mmHG Vent. Rate : 109 BPM Atrial Rate : 109 BPM P-R Int : 148 ms QRS Dur : 92 ms QT Int : 358 ms P-R-T Axes : 59 61 81 degrees QTcB Int : 482 ms Sinus tachycardia Nonspecific ST and T wave abnormality Abnormal ECG Confirmed by MIKE HIRSCH, BIENVENIDO ([id number]), editorial intern DAKOTAH DELVALLE ([id number]) on 04/28/2024 6:12:41 AM Referred By: Confirmed By: BIENVENIDO MCKEON MD
--- NOTE | 2024-04-26 17:12 | ED.VIS.DYS ---
HPI History of Present Illness Chief Complaint: Shortness of Breath Informant: patient and spouse/S.O. Narrative Narrative: Patient is a 60-year-old female with history of COPD, obstructive sleep apnea, chronic respiratory failure with hypoxia on 4 L of oxygen at baseline, anxiety, hypertension, prior right BKA, PTSD, pneumonia and reports history of CHF however patient echocardiogram on 01/15/2024 which showed an EF of 60% with no evidence of diastolic dysfunction. She is presenting today for worsening shortness of breath and fevers. Patient had worsening shortness breath of the past few days. She has had increased cough with production of yellow sputum. She has had associated congestion and sore throat. She reports a headache, neck pain and right shoulder and back pain. She has not taken her temperature so she is not sure how high it has been with the fevers. EMS was called today and administered her albuterol, DuoNeb and Solu-Medrol and route. She notes that she started to feel better. She does report occasional chest pressure and she states it feels like heart attack. No other acute complaints at this time. Is not reporting any vomiting or change in bowel movements. No urinary symptoms reported. Patient is wheelchair-bound at baseline. She states she sleeps on her stomach has not had a change in her sleeping recently. [facility] Medical History PTSD (post-traumatic stress disorder) Hyperthyroidism GI bleed Former smoker CPAP (continuous positive airway pressure) dependence On home oxygen therapy Myocardial infarct Congestive heart failure (CHF) Migraines Fall Contusion of nose Periorbital contusion of right eye Contusion of multiple fingers Chronic hypoxic respiratory failure Contusion of scalp Normocytic anemia Fibromyalgia Chronic respiratory failure with hypoxia RAUL (obstructive sleep apnea) Incisional hernia TIA (transient ischemic attack) Osteoporosis Osteoarthritis Thyroid disorder Diverticulitis History of heart attack Sleep apnea History of pneumonia COPD (chronic obstructive pulmonary disease) History of bronchitis Asthma HTN (hypertension) Depression Anxiety Nausea and vomiting GERD (gastroesophageal reflux disease) Heart disease spinal stimulator Spinal stenosis Chronic back pain Hypothyroidism Home Medications ?Medication ?Instructions ?Recorded ?Last Taken ?Type atorvastatin 80 mg tablet 80 mg PO QHS cholesterol 06/01/13 05/25/14 History 80 MG clopidogrel 75 mg tablet 75 mg PO DAILY anti platelet 06/01/13 11/18/23 History lorazepam 1 mg tablet (Ativan) 1 mg PO TID PRN Anxiety 11/17/18 Unknown History duloxetine 60 mg capsule,delayed 60 mg PO BID DEPRESSION 06/19/20 Unknown History release furosemide 40 mg tablet 40 mg PO DAILY water pill 08/23/22 Unknown History liothyronine 5 mcg tablet 10 mcg PO DAILY HYPOTHYROIDISM 08/23/22 Unknown History pantoprazole 40 mg tablet,delayed 40 mg PO BID ACID REFLEX 30 days 05/06/23 Unknown Rx release #60 tabs baclofen 10 mg tablet 10 mg PO DAILY SPASMS 10/09/23 Unknown History cholecalciferol (vitamin D3) 25 25 mcg PO .WEEKLY SUPPLEMENT 10/09/23 Unknown History mcg (1,000 unit) capsule metoprolol tartrate 25 mg tablet 25 mg PO Q12H blood pressure 10/09/23 Unknown History acetaminophen 500 mg tablet 500 mg PO Q6H PRN pain 11/05/23 Unknown History tiotropium bromide 2.5 2 inh inhalation DAILY LUNGS #3 ea 02/02/24 Unknown Rx mcg/actuation mist for inhalation (Spiriva Respimat) buspirone 10 mg tablet 10 mg PO BID ANXIETY 02/09/24 Unknown History diclofenac sodium 75 mg 75 mg PO BID see phyisican 02/09/24 Unknown History tablet,delayed release sucralfate 100 mg/mL oral 10 ml PO ACHS FOR STOMACH 02/09/24 Unknown History suspension topiramate 50 mg tablet 50 mg PO QHS SLEEP 02/09/24 Unknown History montelukast 10 mg tablet 10 mg PO QPM SEE PCP #90 tabs 02/15/24 Unknown Rx mirtazapine 15 mg tablet 15 mg PO QHS sleep #30 tabs 03/01/24 Unknown Rx albuterol sulfate 90 mcg/actuation 2 puff inhalation Q4H PRN COPD 03/11/24 Unknown History aerosol inhaler amitriptyline 10 mg tablet 10 mg PO DAILY nerve pain 03/11/24 Unknown History cyclobenzaprine 5 mg tablet 5 mg PO Q8H PRN muscle spasms 03/11/24 Unknown History furosemide 20 mg tablet 20 mg PO DAILY water pill 03/11/24 Unknown History hydroxyzine HCl 50 mg tablet 50 mg PO QHS 03/11/24 Unknown History ipratropium 0.5 mg-albuterol 3 mg 3 ml inhalation .Q4-6H PRN 03/11/24 Unknown History (2.5 mg base)/3 mL nebulization shortness of breath or wheezing soln levothyroxine 50 mcg tablet 50 mcg PO SUSA thyroid 03/11/24 Unknown History levothyroxine 75 mcg tablet 75 mcg PO MOTUWETHFR THYROID 03/11/24 Unknown History levofloxacin 750 mg tablet 750 mg PO DAILY PROPHYLAXIS #7 tabs 03/31/24 Unknown Rx mometasone-formoterol HFA 200 2 puff inhalation BID COPD 04/26/24 Unknown History mcg-5 mcg/actuation aerosol inhaler (Dulera) temazepam 30 mg capsule 30 mg PO QHS PRN PRN sleep 04/26/24 Unknown History Allergy/AdvReac Type Severity Reaction Status Date / Time cefaclor (From Ceclor) Allergy Itching Verified 04/26/24 16:54 clarithromycin Allergy Hives Verified 04/26/24 16:54 doxycycline Allergy Itching Verified 04/26/24 16:54 Penicillins Allergy Hives Verified 04/26/24 16:54 Sulfa (Sulfonamide Allergy Hives Verified 04/26/24 16:54 Antibiotics) biotin AdvReac Unknown Unknown Verified 04/26/24 16:54 zolpidem (From Ambien) AdvReac Unknown mental Verified 04/26/24 16:54 issues Family History Father Asthma Heart disease Grandmother Breast cancer Diabetes Mother Heart disease COPD (chronic obstructive pulmonary disease) Other Cancer Surgical History Hx of BKA History of appendectomy History of incisional hernia repair History of incisional hernia repair (~12/20/18) Hx of cholecystectomy History of esophagogastroduodenoscopy (EGD) (~07/2018) Previous back surgery S/P hysterectomy S/P carpal tunnel release S/P knee surgery S/P correction of deviated nasal septum Status post thyroidectomy H/O heart artery stent Status post amputation of right foot Social History household members: spouse Smoking Status: Former smoker Tobacco: How many years used: 25 second hand exposure: Yes alcohol intake: never substance use type: does not use caffeine: Yes what type of physical activity do you participate in: none frequency: does not exercise ROS ROS ED Constitutional Constitutional ED: Reports chills and fever(s) ENT ENT ED: Reports sore throat and other Details: Nasal congestion Cardiovascular Cardiovascular: Reports chest pain Respiratory/Chest Respiratory/Chest: Reports cough, dyspnea and sputum Gastrointestinal Gastrointestinal: Denies abdominal pain, constipation or vomiting Musculoskeletal Musculoskeletal: Reports back pain, myalgias and neck pain; Denies arthralgias Integumentary Denies rash Neurologic Neurologic: Reports headache(s) and weakness Psychiatric Psychiatric: Reports anxiety Hematologic/Lymphatic Hematologic/Lymphatic: Denies easy bleeding or easy bruising EXAM Physical Exam Const Vital Signs: 04/26/24 16:54 04/26/24 17:00 04/26/24 17:02 Temperature 98.8 F 98.8 F Temperature Source Oral Oral Pulse Rate 113 H 113 H Respiratory Rate 30 H 30 H Respiratory Effort Respiratory Depth Respiratory Pattern Blood Pressure 120/57 L 120/57 L Blood Pressure Mean 78 78 Pulse Ox 84 98 95 Oxygen Delivery Method Nasal Cannula Nasal Cannula High Flow Oxygen Flow Rate (L/min) 4 8 8 04/26/24 17:31 04/26/24 17:32 04/26/24 17:35 Temperature Temperature Source Pulse Rate 107 H Respiratory Rate 25 H Respiratory Effort Short of Breath Respiratory Depth Deep Respiratory Pattern Tachypnea Blood Pressure Blood Pressure Mean Pulse Ox 93 Oxygen Delivery Method Nasal Cannula Nasal Cannula Oxygen Flow Rate (L/min) 6 6 04/26/24 17:45 04/26/24 18:00 04/26/24 18:00 Temperature 98.0 F Temperature Source Oral Pulse Rate 107 H 106 H 106 H Respiratory Rate 22 H 20 H 20 H Respiratory Effort Respiratory Depth Respiratory Pattern Blood Pressure 118/60 113/62 113/62 Blood Pressure Mean 75 79 75 Pulse Ox 94 97 97 Oxygen Delivery Method Nasal Cannula Nasal Cannula Oxygen Flow Rate (L/min) 6 6 04/26/24 18:56 04/26/24 19:00 04/26/24 20:00 Temperature 98 F Temperature Source Oral Pulse Rate 104 H 104 H 102 H Respiratory Rate 23 H 21 H 19 H Respiratory Effort Respiratory Depth Respiratory Pattern Blood Pressure 111/65 121/65 H 121/53 H Blood Pressure Mean 80 83 75 Pulse Ox 94 94 97 Oxygen Delivery Method Nasal Cannula Nasal Cannula Nasal Cannula Oxygen Flow Rate (L/min) 4 4 4 04/26/24 20:51 04/26/24 20:52 04/26/24 21:00 Temperature 97.9 F Temperature Source Pulse Rate 102 H 101 H Respiratory Rate 16 19 H Respiratory Effort Respiratory Depth Respiratory Pattern Blood Pressure 101/57 L 117/64 Blood Pressure Mean 71 81 Pulse Ox 97 97 95 Oxygen Delivery Method Nasal Cannula Nasal Cannula Oxygen Flow Rate (L/min) 3 3 Constitutional Narrative: Mildly ill-appearing HEENT Reports TM's clear and dry mucous membranes atraumatic Tympanic Membrane ED: Yes TM's clear Mouth ED: Yes dry mucous membranes Mouth: dry mucous membranes Eyes PERRL Neck no lymphadenopathy and supple Neck Narrative: No JVD Resp Resp Narrative: Tachypneic, coarse breath sounds throughout with rhonchi. Diminished breath sounds at the right base present. GI non-distended Auscultation: normoactive bowel sounds Palpation: soft and tender RUQ Back/Spine no CVA tenderness Extremity Extremity Narrative: Surgically absent right lower extremity. Normal left lower extremity. No edema appreciated. General Extremety ED: Negative for edema or tenderness General Extremity: Negative for edema Neuro Sensorium / Orientation: alert, oriented to person and oriented to place Motor Exam: general weakness Psych mental status grossly normal Mood & Affect: anxious Skin no wounds MDM MDM MDM Narrative Medical decision making narrative: Patient's evaluated for worsening cough, fever and increased shortness of breath. Differential includes influenza, pneumonia, COPD exacerbation, new onset heart failure, other viral syndrome, choledocholithiasis, ACS, pancreatitis, DANYEL/dehydration and pleural effusion. Patient feels improvement after nebulizers prior to arrival. Clinically peers dehydrated is given IV fluids. Will obtain workup and reevaluate. Patient is currently on 8 L via high flow nasal cannula. Patient is weaning down on her oxygen. Workup is positive for RSV and elevated lactate of 2.3. Patient is a mild elevation of her hemoglobin at 9.6. Question this is improvement from her baseline versus hemoconcentration. Her platelets are chronically elevated. VBG obtained shows normal pH and a mildly low pCO2. Patient does not have any significant electrolyte abnormalities. Chest x-ray reviewed by myself as well as radiology shows left pleural effusion and mild left basilar atelectasis. Given patient's poor underlying lung function, positive RSV and acute respiratory symptoms with high O2 demands upon arrival I do think patient benefit from further observation as she has a significant risk of worsening respiratory status over the next day or 2. Patient is agreeable to this. Case discussed with hospitalist, Dr. Almendarez. Lab Data Labs: Laboratory Results - last 24 hr 04/26/24 17:27 WBC 11.0 RBC 4.00 L Hgb 9.6 L Hct 32.2 L MCV 80.5 L MCH 24.0 L MCHC 29.8 L RDW Std Deviation 51.2 H RDW Coeff of Genaro 17.4 H Plt Count 478 H MPV 9.7 Immature Gran % (Auto) 0.700 Neut % (Auto) 72.8 H Lymph % (Auto) 16.7 L Lamb % (Auto) 8.5 Eos % (Auto) 0.7 Baso % (Auto) 0.6 Absolute Neuts (auto) 8.0 H Absolute Lymphs (auto) 1.84 Nucleated RBC % 0 Differential Comment SCANNED Sodium 138 Potassium 3.6 Chloride 105 Carbon Dioxide 25.0 Anion Gap 7 BUN 24 H Creatinine 1.12 H Estim Creat Clear Calc 34.53 Est GFR (MDRD) Af Amer 62 Est GFR (MDRD) Non-Af 51 L BUN/Creatinine Ratio 21.4 H Glucose 133 H Lactic Acid 2.3 H* Calcium 8.9 Iron 15 L TIBC 353 Iron Saturation 4.2 L Ferritin 50 Total Bilirubin 0.20 Direct Bilirubin 0.07 AST 11 L ALT 13 Alkaline Phosphatase 79 Troponin I High Sens 8 B-Natriuretic Peptide 54.2 Total Protein 6.5 Albumin 2.2 L Globulin 4.3 H Lipase < 10 L ABG Data ABG results: ABG 04/26/24 17:30 Specimen Type CHANTEL Sample Site Not entered O2 % 6.0 VBG pH 7.38 VBG pO2 29 VBG HCO3 21 L VBG Total CO2 22 L VBG O2 Sat (Calc) 55 VBG Base Excess -4 L POC Mix VBG pCO2 Pt Tmp 35.5 L O2 Delivery Device Cannula Radiography Diagnostic Testing: Clinical Impression(s) from Imaging Studies Chest X-Ray 04/26/24 17:45 IMPRESSION: Left pleural effusion and mild left basilar atelectasis. Electronically Signed: Noble Ge MD at 18:21 EST , Rhythm Strip Rhythm Strip: Sinus Tach Rate: 109 Ectopy: None EKG Initial EKG: Attestation: I personally reviewed and interpreted this EKG as follows: Interpretation: Sinus Tachycardia Comments: Sinus tachycardia at a rate of 109 bpm Normal axis Normal intervals Nonspecific ST and T wave abnormalities Compared to prior EKG T wave changes are slightly more pronounced Prior EKG tracings: available for review Prior: Changed Management Discussion w/another healthcare provider: Hospitalist Discharge Plan Dx/Rx/DC Orders Clinical Impression: Chronic respiratory failure with hypoxia, Respiratory syncytial virus (RSV), Asthma exacerbation in COPD Disposition Disposition: Acute Care Hospital [facility] Discharge Date/Time: 04/26/24 21:36
[2024-04-26 17:33] LABS: Blood Gas Specimen Type VEN; O2 Delivery Device Cannula; SITE Not entered; VBG BASE EXCESS -4 mmol/L (-1.0-3.5); VBG Bicarbonate 21 mmol/L (22-26); VBG PO2 29 mmHg (25-40); VBG SO2 55 % (50-70); VBG TCO2 22 mmol/L (23-33); VBG pCO2 35.5 mmHg (41-51); VBG pH 7.38 (7.32-7.42)
[2024-04-26] MEDS: 0.9% Normal Saline (1000mL) 1,000 ML 150 ML IV (17:33)
[2024-04-26 17:38] LABS: Absolute Lymphocyte Count 1.84 X10^3/uL (0.83-4.51); Basophil# 0.07 X10^3/uL; Basophil% 0.6 % (0-1); Eosinophil# 0.08 X10^3/uL; Eosinophils% 0.7 % (0-5); Hematocrit 32.2 % (37-47); Hemoglobin 9.6 g/dL (12.0-15.0); Lymphocyte # 1.84 X10^3/ul (0.83-4.51); Lymphocyte % 16.7 % (19-41); Mean Corp Hgb Conc 29.8 g/dL (32-36); Mean Corpuscular Volume 80.5 fL (81-99); Mean Platelet Vol. 9.7 fl (6.2-12.0); Monocyte# 0.93 X10^3/uL; Monocyte% 8.5 % (0-10); NRBC Flagged by Analyzer 0 % (0-5); Neutrophil # 7.99 X10^3/uL (2.7-7.7); Neutrophil % 72.8 % (47-70); POSITIVE MORPHOLOGY YES; Platelet Count 478 K/mm3 (150-450); RBC Distribution Width CV 17.4 % (11.6-14.6); RBC Distribution Width SD 51.2 fl (35.1-43.9)
[2024-04-26 17:44] LABS: Differential Indicated SCAN CRITERIA MET
--- NOTE | 2024-04-26 17:45 | RAD_ITS ---
STUDY: X-RAY CHEST REASON FOR EXAM: Female, 68 years old. sob TECHNIQUE: AP portable COMPARISON: None. FINDINGS: Small left pleural effusion and mild atelectasis in left lower lobe . Normal size heart. Normal mediastinum and gage. Normal visualized pulmonary arteries. Normal visualized aortic arch and descending thoracic aorta. Postsurgical changes of the thoracic and lumbar spines. Normal visualized clavicles, and shoulders. Multiple old healed right rib fractures There is no demonstrated abnormality of the visualized soft tissue structures of the upper abdomen. RAD/Chest 1 View (Portable) IMPRESSION: Left pleural effusion and mild left basilar atelectasis. Electronically Signed: Noble Ge MD at 18:21 EST ,
[2024-04-26 17:54] LABS: BNP,B-Type NATRIURETIC PEPTIDE 54.2 pg/mL (0-100)
[2024-04-26 17:57] LABS: AST(SGOT) 11 U/L (15-37); Alanine Aminotransfer ALT/SGPT 13 U/L (13-56); Albumin, Serum 2.2 g/dL (3.2-5.0); Alkaline Phosphatase 79 U/L (45-117); Anion Gap 7 (5-15); BUN 24 mg/dL (7-18); BUN/Creat Ratio 21.4 RATIO (10-20); Bilirubin, Direct 0.07 mg/dL (0.00-0.30); Calcium,Total 8.9 mg/dL (8.5-10.1); Chloride 105 mmol/L (98-107); Creatinine, Serum 1.12 mg/dL (0.55-1.02); EST Glomerular Filtration Rate 51 mL/min (>60); Est Glom Filt Rate - Afr Amer 62 mL/min (>60); Estimated Creatinine Clearance 34.53 ml/min; Globulin 4.3 g/dL (2.2-4.2); Glucose 133 mg/dL (74-106); Lipase < 10 U/L (13-75); Potassium 3.6 mmol/L (3.5-5.1); Protein, Total 6.5 g/dL (6.4-8.2); Sodium Level 138 mmol/L (136-145); Troponin-I HS 8 pg/mL (3.0-54.0)
[2024-04-26 18:14] LABS: Differential Comment SCANNED
[2024-04-26 18:17] LABS: Lactic Acid 2.3 mmol/L (0.4-1.9)
--- NOTE | 2024-04-26 20:41 | PCM.HP.STD ---
HPI - General General Date of Admission: 04/26/24 Date of Service: 04/26/24 Chief Complaint: Shortness of breath HPI Narrative TAJ BLANK, is a 68 F who presented to the emergency department at [facility] on 04/26/2024 with a chief complaint of shortness of breath. She is oxygen dependent secondary to COPD at baseline on 4 L continuous. She stated that over the last couple days she has not been feeling well and has complained of chills, with no documented fever, malaise, generalized weakness, body aches, rhinorrhea, pharyngitis, intermittent cough and shortness of breath with wheezing. She does not know of any sick contacts. Her cough has been nonproductive overall and sputum production is no different than baseline. She called EMS today due to shortness of breath and they administered albuterol, DuoNebs and gave her IM Solu-Medrol and route. Upon arrival she did indicate she was starting to feel better. She has not had any nausea or vomiting, bowel sounds have been within normal limits and patient is wheelchair-bound at baseline. FEV1 at baseline is 52% predicted. Vital signs on presentation showed a temperature of 98.8, heart rate 113, respiratory was 30, blood pressure was 120/57 and pulse ox was 84% on 4 L nasal cannula. She was increased to 8 L heated high flow nasal cannula with an improvement in her oxygen saturation to 95%. At the time she left the emergency department to go to the floor her saturations improved to the point where she was back on 4 L nasal cannula. CBC showed a chronic stable anemia that was microcytic in nature and a slight thrombocytosis with a plate count count of 470,000. She had a very minimal left shift with 72.8% neutrophilia. Venous blood gas was obtained and found to have a pH of 7.38. Chemistry panel was overtly unremarkable. Blood glucose was 133. She did have a mildly elevated lactate on presentation at 2.3 and is suspected that this is related to her hypoxia at the time of arrival. Liver functions were unremarkable. Troponin was normal. BNP is normal. Lipase was less than 10. EKG was sinus tachycardia with no ST-T wave changes concerning for acute ischemia and normal intervals. Chest x-ray today showed a possible left pleural effusion and mild left basilar atelectasis--> Pleural effusion was minimal in size on my review of the images. In the emergency department she was treated with some IV fluids, Solu-Medrol, DuoNebs and request for admission was made due to her status on presentation. [facility] Medical History PTSD (post-traumatic stress disorder) Hyperthyroidism GI bleed Former smoker CPAP (continuous positive airway pressure) dependence On home oxygen therapy Myocardial infarct Congestive heart failure (CHF) Migraines Fall Contusion of nose Periorbital contusion of right eye Contusion of multiple fingers Chronic hypoxic respiratory failure Contusion of scalp Normocytic anemia Fibromyalgia Chronic respiratory failure with hypoxia RAUL (obstructive sleep apnea) Incisional hernia TIA (transient ischemic attack) Osteoporosis Osteoarthritis Thyroid disorder Diverticulitis History of heart attack Sleep apnea History of pneumonia COPD (chronic obstructive pulmonary disease) History of bronchitis Asthma HTN (hypertension) Depression Anxiety Nausea and vomiting GERD (gastroesophageal reflux disease) Heart disease spinal stimulator Spinal stenosis Chronic back pain Hypothyroidism Home Medications ?Medication ?Instructions ?Recorded ?Last Taken ?Type atorvastatin 80 mg tablet 80 mg PO QHS cholesterol 06/01/13 05/25/14 History 80 MG clopidogrel 75 mg tablet 75 mg PO DAILY anti platelet 06/01/13 11/18/23 History lorazepam 1 mg tablet (Ativan) 1 mg PO TID PRN Anxiety 11/17/18 Unknown History duloxetine 60 mg capsule,delayed 60 mg PO BID DEPRESSION 06/19/20 Unknown History release furosemide 40 mg tablet 40 mg PO DAILY water pill 08/23/22 Unknown History liothyronine 5 mcg tablet 10 mcg PO DAILY HYPOTHYROIDISM 08/23/22 Unknown History pantoprazole 40 mg tablet,delayed 40 mg PO BID ACID REFLEX 30 days 05/06/23 Unknown Rx release #60 tabs baclofen 10 mg tablet 10 mg PO DAILY SPASMS 10/09/23 Unknown History cholecalciferol (vitamin D3) 25 25 mcg PO .WEEKLY SUPPLEMENT 10/09/23 Unknown History mcg (1,000 unit) capsule metoprolol tartrate 25 mg tablet 25 mg PO Q12H blood pressure 10/09/23 Unknown History acetaminophen 500 mg tablet 500 mg PO Q6H PRN pain 11/05/23 Unknown History tiotropium bromide 2.5 2 inh inhalation DAILY LUNGS #3 ea 02/02/24 Unknown Rx mcg/actuation mist for inhalation (Spiriva Respimat) buspirone 10 mg tablet 10 mg PO BID ANXIETY 02/09/24 Unknown History diclofenac sodium 75 mg 75 mg PO BID see phyisican 02/09/24 Unknown History tablet,delayed release sucralfate 100 mg/mL oral 10 ml PO ACHS FOR STOMACH 02/09/24 Unknown History suspension topiramate 50 mg tablet 50 mg PO QHS SLEEP 02/09/24 Unknown History montelukast 10 mg tablet 10 mg PO QPM SEE PCP #90 tabs 02/15/24 Unknown Rx mirtazapine 15 mg tablet 15 mg PO QHS sleep #30 tabs 03/01/24 Unknown Rx albuterol sulfate 90 mcg/actuation 2 puff inhalation Q4H PRN COPD 03/11/24 Unknown History aerosol inhaler amitriptyline 10 mg tablet 10 mg PO DAILY nerve pain 03/11/24 Unknown History cyclobenzaprine 5 mg tablet 5 mg PO Q8H PRN muscle spasms 03/11/24 Unknown History furosemide 20 mg tablet 20 mg PO DAILY water pill 03/11/24 Unknown History hydroxyzine HCl 50 mg tablet 50 mg PO QHS 03/11/24 Unknown History ipratropium 0.5 mg-albuterol 3 mg 3 ml inhalation .Q4-6H PRN 03/11/24 Unknown History (2.5 mg base)/3 mL nebulization shortness of breath or wheezing soln levothyroxine 50 mcg tablet 50 mcg PO SUSA thyroid 03/11/24 Unknown History levothyroxine 75 mcg tablet 75 mcg PO MOTUWETHFR THYROID 03/11/24 Unknown History levofloxacin 750 mg tablet 750 mg PO DAILY PROPHYLAXIS #7 tabs 03/31/24 Unknown Rx mometasone-formoterol HFA 200 2 puff inhalation BID COPD 04/26/24 Unknown History mcg-5 mcg/actuation aerosol inhaler (Dulera) temazepam 30 mg capsule 30 mg PO QHS PRN PRN sleep 04/26/24 Unknown History Allergy/AdvReac Type Severity Reaction Status Date / Time cefaclor (From [facility]) Allergy Itching Verified 04/26/24 16:54 clarithromycin Allergy Hives Verified 04/26/24 16:54 doxycycline Allergy Itching Verified 04/26/24 16:54 Penicillins Allergy Hives Verified 04/26/24 16:54 Sulfa (Sulfonamide Allergy Hives Verified 04/26/24 16:54 Antibiotics) biotin AdvReac Unknown Unknown Verified 04/26/24 16:54 zolpidem (From Ambien) AdvReac Unknown mental Verified 04/26/24 16:54 issues Family History Father Asthma Heart disease Grandmother Breast cancer Diabetes Mother Heart disease COPD (chronic obstructive pulmonary disease) Other Cancer Surgical History Hx of BKA History of appendectomy History of incisional hernia repair History of incisional hernia repair (~12/20/18) Hx of cholecystectomy History of esophagogastroduodenoscopy (EGD) (~07/2018) Previous back surgery S/P hysterectomy S/P carpal tunnel release S/P knee surgery S/P correction of deviated nasal septum Status post thyroidectomy H/O heart artery stent Status post amputation of right foot Social History household members: spouse Smoking Status: Former smoker Tobacco: How many years used: 25 second hand exposure: Yes alcohol intake: never substance use type: does not use caffeine: Yes what type of physical activity do you participate in: none frequency: does not exercise ROS Constitutional Constitutional: Reports anorexia, chills, fatigue, fever(s), malaise and weakness Eyes Eyes: Denies blurry vision, change in eye color, change in vision, discharge from eye(s), double vision, erythema, eye pain, loss of vision or other ENT HEENT: Reports headache(s), nasal congestion, nasal discharge, post nasal drip, sinus pressure and sore throat; Denies abnormal hearing, dysphagia, ear pain, epistaxis, hearing loss or other Cardiovascular Cardiovascular: Reports chest pain; Denies claudication, dyspnea on exertion, edema, lightheadedness, orthopnea, palpitations, paroxysmal nocturnal dyspnea, rapid heart rate, syncope or other Respiratory/Chest Respiratory/Chest: Reports cough, dyspnea, productive cough, shortness of breath at rest, shortness of breath with exertion and wheezing; Denies excessive phlegm production, hemoptysis or other Gastrointestinal Gastrointestinal: Denies abdominal pain, coffee ground emesis, constipation, diarrhea, dyspepsia, hematemesis, hematochezia, loose stools, melena, nausea, vomiting or other Genitourinary Genitourinary: Denies burning urination, difficulty urinating, dysuria, hematuria, nocturia, urinary frequency, urinary hesitancy, urinary incontinence, urinary urgency or other Musculoskeletal Musculoskeletal: Reports myalgias; Denies arthralgias, back pain, joint pain, joint stiffness, joint swelling, neck pain or other Neurologic Neurologic: Denies abnormal gait, abnormal speech, confusion, disequilibrium, dizziness, focal weakness, headache(s), numbness, paresthesias, seizure-like activity, seizures, syncope, tingling, tremor(s) or other Psychiatric Psychiatric: Reports anxiety and depression; Denies homicidal ideation, suicidal ideation or other Endocrine Endocrinology: Denies change in body appearance, cold intolerance, excessive sweating, heat intolerance, polydipsia, polyuria or other Hematologic/Lymphatic Hematologic/Lymphatic: Denies anemia, easy bleeding, easy bruising, lymphadenopathy or other Allergic/Immunologic Allergic/Immunologic: Denies rhinitis, hives, eczemia, asthma or other Vital Signs Vital Signs Vital Signs: 04/26/24 16:54 04/26/24 17:00 04/26/24 17:02 Temperature 98.8 F 98.8 F Temperature Source Oral Oral Pulse Rate 113 H 113 H Respiratory Rate 30 H 30 H Respiratory Effort Respiratory Depth Respiratory Pattern Blood Pressure 120/57 L 120/57 L Blood Pressure Mean 78 78 Pulse Ox 84 98 95 Oxygen Delivery Method Nasal Cannula Nasal Cannula High Flow Oxygen Flow Rate (L/min) 4 8 8 04/26/24 17:31 04/26/24 17:32 04/26/24 17:35 Temperature Temperature Source Pulse Rate 107 H Respiratory Rate 25 H Respiratory Effort Short of Breath Respiratory Depth Deep Respiratory Pattern Tachypnea Blood Pressure Blood Pressure Mean Pulse Ox 93 Oxygen Delivery Method Nasal Cannula Nasal Cannula Oxygen Flow Rate (L/min) 6 6 04/26/24 17:45 04/26/24 18:00 04/26/24 18:00 Temperature 98.0 F Temperature Source Oral Pulse Rate 107 H 106 H 106 H Respiratory Rate 22 H 20 H 20 H Respiratory Effort Respiratory Depth Respiratory Pattern Blood Pressure 118/60 113/62 113/62 Blood Pressure Mean 75 79 75 Pulse Ox 94 97 97 Oxygen Delivery Method Nasal Cannula Nasal Cannula Oxygen Flow Rate (L/min) 6 6 04/26/24 18:56 04/26/24 19:00 04/26/24 20:00 Temperature 98 F Temperature Source Oral Pulse Rate 104 H 104 H 102 H Respiratory Rate 23 H 21 H 19 H Respiratory Effort Respiratory Depth Respiratory Pattern Blood Pressure 111/65 121/65 H 121/53 H Blood Pressure Mean 80 83 75 Pulse Ox 94 94 97 Oxygen Delivery Method Nasal Cannula Nasal Cannula Nasal Cannula Oxygen Flow Rate (L/min) 4 4 4 Weight Weight: 53.524 kg Body Mass Index (BMI) 25.5 Physical Exam Const alert, oriented x3, no apparent distress and average body habitus; Negative for healthy appearing Constitutional Narrative: Upper middle-aged, white female, sitting up in bed, currently appears comfortable and resting comfortably, awakens easily, nontoxic appearing, appears older than stated age General Appearance: cooperative HEENT normocephalic, head/scalp atraumatic and hearing grossly normal bilaterally; Negative for moist oral mucous membranes HEENT Narrative: Dentition is poor, Mallampati is 2, mucous membranes are slightly dry, no thrush is present Eyes EOMs intact bilaterally; Negative for conjunctivae normal Eyes Narrative: Conjunctiva are slightly pale bilaterally, no scleral icterus Neck Neck Narrative: Mild submandibular lymphadenopathy bilaterally, neck is supple, trachea is midline, no thyroid enlargement noted Resp No no retractions, No no use of accessory muscles and No clear to auscultation bilaterally Resp Narrative: Markedly diminished with scattered end expiratory wheezes bilaterally, no signs of respiratory distress or extremis and respiratory effort currently is within normal limits Auscultation: wheezes; Negative for rales or rhonchi Cardio regular rate, regular rhythm, S1 normal heart sound, S2 normal heart sound, no murmurs, no rub, no gallops and no clicks GI normal to inspection, nondistended, normoactive bowel sounds, soft to palpation and non-tender Extremity no clubbing, cyanosis or edema Extremity Narrative: Pedal and radial pulses are 2+ bilaterally Skin skin turgor normal, no jaundice, no petechiae and no mottling Skin Narrative: Skin is frail, scattered ecchymosis, no significant wounds noted Neuro oriented x3, moves all extremities and no focal motor deficits Speech: speech normal Psych Psych Narrative: Affect is slightly flat but appropriate for current situation, eye contact is good and patient interacts appropriately Results Lab / Micro Data 04/26/24 17:27 04/26/24 17:27 Labs: Laboratory Results - last 24 hr 04/26/24 17:27: WBC 11.0, RBC 4.00 L, Hgb 9.6 L, Hct 32.2 L, MCV 80.5 L, MCH 24.0 L, MCHC 29.8 L, RDW Std Deviation 51.2 H, RDW Coeff of Genaro 17.4 H, Plt Count 478 H, MPV 9.7, Immature Gran % (Auto) 0.700, Neut % (Auto) 72.8 H, Lymph % (Auto) 16.7 L, [place] % (Auto) 8.5, Eos % (Auto) 0.7, Baso % (Auto) 0.6, Absolute Neuts (auto) 8.0 H, Absolute Lymphs (auto) 1.84, Nucleated RBC % 0, Differential Comment SCANNED, Sodium 138, Potassium 3.6, Chloride 105, Carbon Dioxide 25.0, Anion Gap 7, BUN 24 H, Creatinine 1.12 H, Estim Creat Clear Calc 34.53, Est GFR (MDRD) Af Amer 62, Est GFR (MDRD) Non-Af 51 L, BUN/Creatinine Ratio 21.4 H, Glucose 133 H, Lactic Acid 2.3 H*, Calcium 8.9, Total Bilirubin 0.20, Direct Bilirubin 0.07, AST 11 L, ALT 13, Alkaline Phosphatase 79, Troponin I High Sens 8, B-Natriuretic Peptide 54.2, Total Protein 6.5, Albumin 2.2 L, Globulin 4.3 H, Lipase < 10 L Micro: Microbiology 04/26/24 17:32 Mucosa - Nose SARS-CoV-2, Influenza & RSV (PCR) - Final RSV ABG Data ABG results: ABG 04/26/24 17:30 Specimen Type CHANTEL Sample Site Not entered O2 % 6.0 VBG pH 7.38 VBG pO2 29 VBG HCO3 21 L VBG Total CO2 22 L VBG O2 Sat (Calc) 55 VBG Base Excess -4 L POC Mix VBG pCO2 Pt Tmp 35.5 L O2 Delivery Device Cannula Imaging Radiology Impression Chest X-Ray 04/26/24 17:45 IMPRESSION: Left pleural effusion and mild left basilar atelectasis. Electronically Signed: Noble Ge MD at 18:21 EST , Assessment & Plan Assessment/Plan (1) Acute and chronic respiratory failure with hypoxia: (2) RSV infection: (3) Microcytic anemia: PLAN: Plan Acute on chronic hypoxic respiratory failure secondary to RSV viral pneumonia -Chest x-ray is overtly unremarkable -Initially required 8 L nasal cannula but now weaned back to baseline 4 L with treatment the emergency department -Start Solu-Medrol 40 every 8 -Start Mucinex next 1200 twice daily -Aggressive pulmonary toilet with scheduled and as needed nebulizers -Incentive spirometer -Pep therapy with Acapella 10 times every 2 hours while awake -Will need ambulatory pulse ox prior to discharge -FEV1 at baseline is 52% predicted on her most recent PFTs -Patient did have RSV vaccination which may be why she is clinically not as ill as typical COPD patient with RSV infection Acute microcytic anemia -Patient has chronic anemia however microcytic component appears to be new -Also has thrombocytosis which could be indicative of iron deficiency -Will check iron studies -Check ferritin -Check reticulocyte count -No need for GI consultation at this time however if iron deficiency is present may benefit from outpatient referral as long as hemoglobin remained stable Thrombocytosis -Highly suspect may be reactive from infection and related to possible iron deficiency with microcytic anemia -Iron studies pending History of erosive esophagitis/GERD -Continue home Carafate -Continue home PPI COPD Gold stage 2 -FEV1 is 52% predicted -Hold home inhalers and restart at discharge -Nebulizers as above -IV steroids for now Pulmonary nodule -Continue outpatient follow-up for surveillance with pulmonary medicine Seasonal allergies -Continue home Singulair Hypothyroidism -Continue home levothyroxine -Continue home liothyronine Essential hypertension/hyperlipidemia/history of TIA -Continue home metoprolol -Continue home Plavix -Continue metoprolol -Continue Lasix Chronic pain -Hold home diclofenac -Hold home Flexeril for now -Tylenol as needed -Continue home baclofen Depression/anxiety -Continue home Topamax -Hold home temazepam due to respiratory issues and restart at discharge -Continue home BuSpar -continue home amitriptyline -Continue home Cymbalta DVT prophylaxis -Subcu Lovenox 40 daily CODE STATUS -DNR CCA with no intubation as discussed at the time of admission Charges/Coding Visit Charges Inpatient E&M: 88663 Init Hosp L2
[2024-04-26 21:35] LABS: Reflex Lactate? Y
[2024-04-26 22:26] LABS: Ferritin 50 ng/mL (8-252); Iron 15 ug/dL (50-170); Iron Binding Capacity,Total 353 ug/dL (250-450); PERCENT IRON SATURATION 4.2 % (15.0-55.0)
[2024-04-26 22:34] LABS: Platelet Count 504 K/mm3 (150-450); RET-HE 20.8 pg (30-35); Reticulocyte Count 1.65 % (0.5-1.5)
[2024-04-26] MEDS: busPIRone 5 MG Tablet 10 MG PO (22:42)
[2024-04-26] MEDS: Sucralfate 1 GM Tablet PO (22:42)
[2024-04-26] MEDS: DULoxetine Hcl 60 MG Capsule PO (22:43)
[2024-04-26] MEDS: Pantoprazole Sodium 40 MG Tablet PO (22:43)
[2024-04-26] MEDS: Atorvastatin Calcium 80 MG Tablet PO (22:43)
[2024-04-26] MEDS: guaiFENesin 1,200 MG Tablet 1200 MG PO (22:43)
[2024-04-26] MEDS: Metoprolol Tartrate 25 MG Tablet PO (22:43)
[2024-04-26] MEDS: Topiramate 50 MG Tablet PO (22:43)
[2024-04-26] MEDS: hydrOXYzine PAM 25 MG Capsule 50 MG PO (22:44)
[2024-04-26] MEDS: Mirtazapine 15 MG Tablet PO (22:44)
[2024-04-26] MEDS: Ipratropium/Albuterol Sulfate 3 ML AMPUL.NEB INHALATION (22:46)
[2024-04-26] MEDS: 0.9% Saline Lock 10 ML Syringe IV (22:46)
[2024-04-26 22:58] LABS: Lactic Acid 1.2 mmol/L (0.4-1.9)
--- NOTE | 2024-04-26 23:34 | PCM.HOSP.N ---
Hospitalist Note Iron studies are consistent with iron deficiency anemia. Will start IV iron 200 mg daily x 3 days. If discharged before that time would start oral iron as an outpatient and have patient take with vitamin C to enhance absorption. Patient did have an EGD that was unremarkable. Plan was for colonoscopy however the patient eloped from the hospital and has not followed up as an outpatient of yet. As long as hemoglobin remains stable recommend outpatient follow-up with GI after discharge.
[2024-04-27] VITALS (17 sets, daily range): BP systolic 120–141; BP diastolic 57–65; PULSE 82–96; RESP 18–25; TEMP 36.5–36.9; O2SAT 88–96; BMI 25.1
[2024-04-27] MEDS: Sodium Ferric Gluconat 250 MG in 0.9% Normal Saline 250 ML 135 MG IV (00:32)
[2024-04-27] MEDS: Ipratropium/Albuterol Sulfate 3 ML AMPUL.NEB INHALATION ×6 (02:28→23:13)
[2024-04-27] MEDS: Levothyroxine 75 MCG Tablet PO (05:43)
[2024-04-27] MEDS: Liothyronine 5 MCG Tablet 10 MCG PO (05:43)
[2024-04-27] MEDS: Sucralfate 1 GM Tablet PO ×4 (05:45→21:06)
[2024-04-27 06:58] LABS: Absolute Lymphocyte Count 0.91 X10^3/uL (0.83-4.51); Absolute Neutrophil Count 7.6 X10^3/uL (2.0-7.7); Basophil# 0.02 X10^3/uL; Basophil% 0.2 % (0-1); Hematocrit 26.9 % (37-47); Hemoglobin 8.2 g/dL (12.0-15.0); Lymphocyte # 0.91 X10^3/ul (0.83-4.51); Lymphocyte % 10.1 % (19-41); Mean Corp Hgb Conc 30.5 g/dL (32-36); Mean Corpuscular Volume 78.7 fL (81-99); Mean Platelet Vol. 9.2 fl (6.2-12.0); Monocyte% 5.5 % (0-10); NRBC Flagged by Analyzer 0 % (0-5); Neutrophil # 7.56 X10^3/uL (2.7-7.7); Neutrophil % 83.5 % (47-70); POSITIVE MORPHOLOGY YES; Platelet Count 492 K/mm3 (150-450); RBC Distribution Width CV 17.3 % (11.6-14.6); RBC Distribution Width SD 49.2 fl (35.1-43.9); Red Blood Count 3.42 M/mm3 (4.2-5.4); White Blood Count 9.1 K/mm3 (4.4-11.0)
[2024-04-27 07:08] LABS: Differential Indicated SCAN CRITERIA MET
[2024-04-27 08:10] LABS: ALB/GLOB Ratio 0.4 RATIO (0.9-2.4); AST(SGOT) 9 U/L (15-37); Alanine Aminotransfer ALT/SGPT 9 U/L (13-56); Albumin, Serum 1.9 g/dL (3.2-5.0); Alkaline Phosphatase 73 U/L (45-117); Anion Gap 6 (5-15); BUN 15 mg/dL (7-18); Calcium,Total 8.4 mg/dL (8.5-10.1); Chloride 108 mmol/L (98-107); Creatinine, Serum 0.79 mg/dL (0.55-1.02); EST Glomerular Filtration Rate 77 mL/min (>60); Est Glom Filt Rate - Afr Amer 93 mL/min (>60); Estimated Creatinine Clearance 48.34 ml/min; Globulin 4.6 g/dL (2.2-4.2); Glucose 148 mg/dL (74-106); Phosphorus 2.4 mg/dL (2.5-4.9); Potassium 4.2 mmol/L (3.5-5.1); Protein, Total 6.5 g/dL (6.4-8.2); Sodium Level 139 mmol/L (136-145)
[2024-04-27] MEDS: Metoprolol Tartrate 25 MG Tablet PO ×2 (08:26→21:07)
[2024-04-27] MEDS: Amitriptyline 10 MG Tablet PO (08:26)
[2024-04-27] MEDS: Clopidogrel Bisulfate 75 MG Tablet PO (08:26)
[2024-04-27] MEDS: Baclofen 10 MG Tablet PO (08:26)
[2024-04-27] MEDS: guaiFENesin 1,200 MG Tablet 1200 MG PO ×2 (08:26→21:07)
[2024-04-27] MEDS: Furosemide 20 MG Tablet PO (08:27)
[2024-04-27] MEDS: Pantoprazole Sodium 40 MG Tablet PO ×2 (08:28→21:07)
[2024-04-27] MEDS: DULoxetine Hcl 60 MG Capsule PO ×2 (08:28→21:06)
[2024-04-27] MEDS: busPIRone 5 MG Tablet 10 MG PO ×2 (08:28→21:06)
[2024-04-27] MEDS: Furosemide 40 MG Tablet PO (08:28)
[2024-04-27] MEDS: Enoxaparin 40 MG/0.4 ML Syringe SC (08:29)
--- NOTE | 2024-04-27 11:04 | PCM.PN.HOSP ---
Reason for Visit Reason for Visit: Diagnoses Other specified viral diseases (04/26/24) Iron deficiency anemia, unspecified (04/26/24) Acute and chronic respiratory failure with hypoxia (04/26/24) Subjective Subjective Saw patient at bedside this morning. Patient was fatigued appearing but otherwise sitting up comfortably in bedside chair and in no acute distress. She was breathing comfortably on 5 L nasal cannula at rest. She seemed to have mild cognitive slowing but did answer my questions with short appropriate responses. She reported feeling tired but denied shortness of breath currently. Denied any fevers or chills. Denied any chest pain. No other acute concerns morning. Objective Data Objective Data Vital Signs: Vital Signs Temp Pulse Resp BP Pulse Ox O2 Del Method O2 Flow Rate 98.1 F 85 18 120/60 91 Nasal Cannula 5 04/27/24 08:10 04/27/24 08:26 04/27/24 08:10 04/27/24 08:10 04/27/24 08:10 04/27/24 08:10 04/27/24 08:10 Oxygen Flow Rate (L/min) 5 Oxygen Delivery Method Nasal Cannula Weight: 52.9 kg Body Mass Index (BMI) 25.1 Intake & Output: Intake and Output for Last 24 Hours 04/25/24 04/26/24 04/27/24 23:59 23:59 23:59 Intake Total 645 / 795 470 / 470 Balance 645 / 795 470 / 470 Lab / Micro Data 04/27/24 06:30 04/27/24 06:30 Labs: Laboratory Results - last 24 hr 04/26/24 17:27: WBC 11.0, RBC 4.00 L, Hgb 9.6 L, Hct 32.2 L, MCV 80.5 L, MCH 24.0 L, MCHC 29.8 L, RDW Std Deviation 51.2 H, RDW Coeff of Genaro 17.4 H, Plt Count 478 H, MPV 9.7, Immature Gran % (Auto) 0.700, Neut % (Auto) 72.8 H, Lymph % (Auto) 16.7 L, [place] % (Auto) 8.5, Eos % (Auto) 0.7, Baso % (Auto) 0.6, Absolute Neuts (auto) 8.0 H, Absolute Lymphs (auto) 1.84, Nucleated RBC % 0, Differential Comment SCANNED, Sodium 138, Potassium 3.6, Chloride 105, Carbon Dioxide 25.0, Anion Gap 7, BUN 24 H, Creatinine 1.12 H, Estim Creat Clear Calc 34.53, Est GFR (MDRD) Af Amer 62, Est GFR (MDRD) Non-Af 51 L, BUN/Creatinine Ratio 21.4 H, Glucose 133 H, Lactic Acid 2.3 H*, Calcium 8.9, Iron 15 L, TIBC 353, Iron Saturation 4.2 L, Ferritin 50, Total Bilirubin 0.20, Direct Bilirubin 0.07, AST 11 L, ALT 13, Alkaline Phosphatase 79, Troponin I High Sens 8, B-Natriuretic Peptide 54.2, Total Protein 6.5, Albumin 2.2 L, Globulin 4.3 H, Lipase < 10 L 04/26/24 22:25: Retic Count 1.65 H, Immature Retic Fraction 18.20 H, Retic Hgb Equivalent 20.8 L, Lactic Acid 1.2 04/27/24 06:30: WBC 9.1, RBC 3.42 L, Hgb 8.2 L, Hct 26.9 L, MCV 78.7 L, MCH 24.0 L, MCHC 30.5 L, RDW Std Deviation 49.2 H, RDW Coeff of Genaro 17.3 H, Plt Count 492 H, MPV 9.2, Immature Gran % (Auto) 0.700, Neut % (Auto) 83.5 H, Lymph % (Auto) 10.1 L, [place] % (Auto) 5.5, Eos % (Auto) 0.0, Baso % (Auto) 0.2, Absolute Neuts (auto) 7.6, Absolute Lymphs (auto) 0.91, Nucleated RBC % 0, Sodium 139, Potassium 4.2, Chloride 108 H, Carbon Dioxide 24.0, Anion Gap 6, BUN 15, Creatinine 0.79, Estim Creat Clear Calc 48.34, Est GFR (MDRD) Af Amer 93, Est GFR (MDRD) Non-Af 77, BUN/Creatinine Ratio 19.0, Glucose 148 H, Calcium 8.4 L, Phosphorus 2.4 L, Magnesium 2.0, Total Bilirubin 0.20, AST 9 L, ALT 9 L, Alkaline Phosphatase 73, Total Protein 6.5, Albumin 1.9 L, Globulin 4.6 H, Albumin/Globulin Ratio 0.4 L Micro: Microbiology 04/26/24 17:32 Mucosa - Nose SARS-CoV-2, Influenza & RSV (PCR) - Final RSV ABG Data ABG results: ABG 04/26/24 17:30 Specimen Type CHANTEL Sample Site Not entered O2 % 6.0 VBG pH 7.38 VBG pO2 29 VBG HCO3 21 L VBG Total CO2 22 L VBG O2 Sat (Calc) 55 VBG Base Excess -4 L POC Mix VBG pCO2 Pt Tmp 35.5 L O2 Delivery Device Cannula Radiography Diagnostic Testing: Radiology Impression Chest X-Ray 04/26/24 17:45 IMPRESSION: Left pleural effusion and mild left basilar atelectasis. Electronically Signed: Noble Ge MD at 18:21 EST Reading Location ID and State: [facility] / [place] Tel , Service support , Rhythm Strip Rhythm Strip: Sinus Tach Rate: 109 Ectopy: None Physical Exam Const alert, oriented x3, no apparent distress and average body habitus Constitutional Narrative: Upper middle-aged female, appears older than stated age, mildly fatigued appearing, mild cognitive slowing but answering my questions with short appropriate responses, sitting up in bedside chair comfortably, in no acute distress. General Appearance: cooperative and comfortable HEENT normocephalic, head/scalp atraumatic, hearing grossly normal bilaterally and nasal mucous membranes and turbinates normal HEENT Narrative: Poor dentition. Eyes PERRL, EOMs intact bilaterally and conjunctivae normal Neck full ROM Chest inspection of chest normal Resp normal respiratory effort and no use of accessory muscles Resp Narrative: Breathing comfortably on 5 L nasal cannula at rest. Moderately diminished breath sounds bilaterally with end expiratory wheezes noted. No crackles noted. Cardio regular rate, regular rhythm, no murmurs and peripheral pulses 2+ throughout GI normal to inspection, nondistended, normoactive bowel sounds, soft to palpation, non-tender and non-distended Back/Spine normal ROM Extremity normal to inspection, full ROM and no pedal edema Skin no rashes or lesions noted Psych Psych Narrative: Flat affect. Assessment & Plan Assessment/Plan (1) Respiratory syncytial virus (RSV): (2) Acute and chronic respiratory failure with hypoxia: PLAN: Plan Patient is a 68-year-old female who presented [facility] ED on 04/26/2024 with shortness of breath. 1. Acute on chronic hypoxic respiratory failure secondary to RSV pneumonia, COPD Gold stage II ? Positive for RSV on admit. Chest x-ray unremarkable. Initially required a liters nasal cannula, weaned back to baseline 4 L with treatment in the emergency department. Continue treatment with IV Solu-Medrol, scheduled DuoNebs, scheduled Mucinex. Continue aggressive pulmonary toilet, I-S, Pep therapy. Notably did have RSV vaccination which may be why she is clinically not as ill as typical COPD patient with RSV infection. Continue home long-acting inhalers. 2. Chronic iron deficiency anemia ? Hemoglobin 9.6 on admit, dropped to 8.2 after IV fluid resuscitation. However, baseline appears to be around 8-9. Iron studies were consistent with iron deficiency anemia. Giving IV iron 200 mg daily for 3 days, last dose on 04/28. Will consider starting on p.o. iron supplementation on discharge. 3. Elevated lactic acid, resolved ? Lactic acid mildly elevated at 2.3 on admit, improved to 1.2 with IV fluid resuscitation. Suspect secondary to hypoxia on admission. Sepsis ruled out. 4. Mild acute on chronic debility ? PT/OT/case management following. Worsening weakness secondary to RSV pneumonia as noted above. Appreciate therapy recommendations. Chronic medical conditions: ? Hypothyroidism: Continue home Synthroid and liothyronine. ? Hypertension, hyperlipidemia, history of TIA: Continue home Plavix, statin, Lopressor and Lasix. ? Chronic pain: Stable. Continue home duloxetine. ? Depression/anxiety: Follows with outpatient psychiatry. Continue home amitriptyline, BuSpar, duloxetine, Ativan as needed, mirtazapine at night and topiramate at night. ? History of erosive esophagitis/GERD: Stable. No dark or bloody bowel movements recently. Continue home PPI and sucralfate. DVT prophylaxis: Lovenox CODE STATUS: DNR CCA, DNI Expected disposition: Likely home with home health care, 1 to 2 days Total clinical time spent by myself addressing the patient's medical issues, reviewing all the data, and collaborating with patient's care team: 35 minutes. Charges/Coding Visit Charges Inpatient E&M: 67680 Subs Hosp L2
[2024-04-27] MEDS: Ondansetron 4 MG/2 ML Vial IV (16:29)
[2024-04-27] MEDS: Montelukast 10 MG Tablet PO (21:06)
[2024-04-27] MEDS: Atorvastatin Calcium 80 MG Tablet PO (21:07)
[2024-04-27] MEDS: hydrOXYzine PAM 25 MG Capsule 50 MG PO (21:07)
[2024-04-27] MEDS: Mirtazapine 15 MG Tablet PO (21:07)
[2024-04-27] MEDS: Topiramate 50 MG Tablet PO (21:07)
--- NOTE | 2024-04-27 23:24 | RAD_ITS ---
INDICATION: SOB/worsening hypoxia EXAMINATION/TECHNIQUE: X-RAY - XR Chest 1 View COMPARISON: 04/26/2024 FINDINGS: LIFE-SUPPORT AND LINES: 1. Postoperative changes pedicle screw posterior fixation of the thoracolumbar junction. HEART AND VESSELS: The cardiac silhouette, pulmonary vasculature have normal appearance. No evidence of congestive failure. LUNGS AND PLEURAL SPACES: Patchy atelectasis at the lung bases greater on the LEFT than RIGHT. No airspace consolidation. No pulmonary mass is noted. MEDIASTINUM AND HILAR REGIONS: No masses adenopathy noted. No areas of calcification. Visualized upper airway is normal in position. BONY ELEMENTS: Multiple healed RIGHT rib fractures. RAD/Chest 1 View (Portable) IMPRESSION: 1. Postop changes of remote fixation of the thoracolumbar spine. Multiple healed RIGHT rib fractures. 2. Mild basilar atelectasis greater on the LEFT than RIGHT. 3. No congestive failure. Electronically Signed: Mitch Foster MD at 0:05 EST ,
--- NOTE | 2024-04-27 23:25 | PCM.HOSP.N ---
Hospitalist Note Called due to worsening shortness of breath, rhonchi, and increasing oxygen demands. Will check a BNP and chest x-ray. Patient is already on her baseline Lasix. Has RSV infection and underlying COPD with a baseline oxygen requirement of 4 L nasal cannula. BNP resulted as elevated. Chest x-ray does not show significant volume overload. Will give IV Lasix 40 mg x 1 dose and then 40 IV twice daily. Home dose on hold. Oxygen has been uptitrated from 5 L to 8 L high flow now. ABG was ordered and reviewed. Patient does not show any signs of acute hypercapnia and oxygenation seems to be satisfactory on current oxygen in fact based on this we should be able to wean her supplemental oxygen some.
[2024-04-27] MEDS: LORazepam 1 MG Tablet PO (23:41)
[2024-04-28] VITALS (17 sets, daily range): BP systolic 119–144; BP diastolic 64–80; PULSE 88–106; RESP 16–24; TEMP 36.4–36.8; O2SAT 87–94; BMI 24.5
[2024-04-28 00:23] LABS: BNP,B-Type NATRIURETIC PEPTIDE 183.3 pg/mL (0-100)
[2024-04-28] MEDS: 0.9% Saline Lock 10 ML Syringe IV ×6 (00:44→21:54)
[2024-04-28] MEDS: Furosemide 40 MG/4 ML Vial IV ×3 (00:44→17:03)
[2024-04-28 00:56] LABS: Allen Test Positive; Base Excess 4 mmol/L (-2 to +2); Bicarbonate 28.9 mmol/L (22-26); Blood Gas Specimen Type ART; Mode Not entered; O2 Delivery Device Cannula; PO2 78 mmHG (75-100); SITE L Radial; SO2 95 % (95-99); Total Carbon Dioxide 30 mmol/L; pCO2 49.7 mmHg (35-45); pH 7.37 (7.35-7.45)
[2024-04-28] MEDS: Liothyronine 5 MCG Tablet 10 MCG PO (05:08)
[2024-04-28] MEDS: Sucralfate 1 GM Tablet PO ×4 (05:08→21:56)
[2024-04-28] MEDS: Levothyroxine 75 MCG Tablet PO (05:08)
[2024-04-28 06:34] LABS: Hematocrit 30.1 % (37-47); Hemoglobin 9.1 g/dL (12.0-15.0); Mean Corp Hgb Conc 30.2 g/dL (32-36); Mean Corpuscular Volume 79.4 fL (81-99); Mean Platelet Vol. 9.7 fl (6.2-12.0); Platelet Count 643 K/mm3 (150-450); RBC Distribution Width CV 17.3 % (11.6-14.6); RBC Distribution Width SD 49.6 fl (35.1-43.9); Red Blood Count 3.79 M/mm3 (4.2-5.4); White Blood Count 12.5 K/mm3 (4.4-11.0)
[2024-04-28 06:50] LABS: Anion Gap 5 (5-15); BUN 22 mg/dL (7-18); BUN/Creat Ratio 23.3 RATIO (10-20); Calcium,Total 9.5 mg/dL (8.5-10.1); Chloride 98 mmol/L (98-107); Creatinine, Serum 0.94 mg/dL (0.55-1.02); EST Glomerular Filtration Rate 62 mL/min (>60); Est Glom Filt Rate - Afr Amer 76 mL/min (>60); Estimated Creatinine Clearance 41.14 ml/min; Glucose 128 mg/dL (74-106); Potassium 4.2 mmol/L (3.5-5.1); Sodium Level 136 mmol/L (136-145)
[2024-04-28] MEDS: Ipratropium/Albuterol Sulfate 3 ML AMPUL.NEB INHALATION ×5 (07:00→22:34)
[2024-04-28] MEDS: Pantoprazole Sodium 40 MG Tablet PO ×2 (08:19→21:56)
[2024-04-28] MEDS: Clopidogrel Bisulfate 75 MG Tablet PO (08:19)
[2024-04-28] MEDS: DULoxetine Hcl 60 MG Capsule PO ×2 (08:19→21:56)
[2024-04-28] MEDS: busPIRone 5 MG Tablet 10 MG PO ×2 (08:19→21:55)
[2024-04-28] MEDS: Baclofen 10 MG Tablet PO (08:19)
[2024-04-28] MEDS: Metoprolol Tartrate 25 MG Tablet PO ×2 (08:19→21:56)
[2024-04-28] MEDS: Amitriptyline 10 MG Tablet PO (08:19)
[2024-04-28] MEDS: Enoxaparin 40 MG/0.4 ML Syringe SC (08:20)
[2024-04-28] MEDS: guaiFENesin 1,200 MG Tablet 1200 MG PO ×2 (08:20→21:56)
[2024-04-28] MEDS: Sodium Ferric Gluconat 250 MG in 0.9% Normal Saline 250 ML 135 MG IV (10:56)
--- NOTE | 2024-04-28 12:55 | PN_ITS ---
Subjective Subjective Patient seen and examined. She did complain of shortness of breath. She is also coughing occasionally. Review of systems otherwise negative. She is on 5L of oxygen. She wears 4L at home. Objective Data Objective Data Vital Signs: Vital Signs Temp Pulse Resp BP Pulse Ox O2 Del Method O2 Flow Rate 98.3 F 88 18 125/64 H 92 Nasal Cannula 5 04/28/24 08:14 04/28/24 08:19 04/28/24 08:14 04/28/24 08:14 04/28/24 11:27 04/28/24 08:25 04/28/24 11:28 Oxygen Flow Rate (L/min) 5 Oxygen Delivery Method Nasal Cannula Weight: 113 lb 8.609 oz Body Mass Index (BMI) 24.5 Intake & Output: Intake and Output for Last 24 Hours 04/26/24 04/27/24 04/28/24 23:59 23:59 23:59 Intake Total 645 / 795 710 / 710 200 / 200 Output Total 400 / 400 2200 / 2200 Balance 645 / 795 310 / 310 -2000 / -1999 Lab / Micro Data 04/28/24 05:31 04/28/24 05:31 Labs: Laboratory Results - last 24 hr 04/27/24 23:43: B-Natriuretic Peptide 183.3 H 04/28/24 05:31: WBC 12.5 H, RBC 3.79 L, Hgb 9.1 L, Hct 30.1 L, MCV 79.4 L, MCH 24.0 L, MCHC 30.2 L, RDW Std Deviation 49.6 H, RDW Coeff of Genaro 17.3 H, Plt Count 643 H, MPV 9.7, Sodium 136, Potassium 4.2, Chloride 98, Carbon Dioxide 33.0 H, Anion Gap 5, BUN 22 H, Creatinine 0.94, Estim Creat Clear Calc 41.14, Est GFR (MDRD) Af Amer 76, Est GFR (MDRD) Non-Af 62, BUN/Creatinine Ratio 23.3 H , Glucose 128 H, Calcium 9.5 Micro: Microbiology 04/26/24 17:32 Mucosa - Nose SARS-CoV-2, Influenza & RSV (PCR) - Final RSV ABG Data ABG results: ABG 04/28/24 00:53 Specimen Type ART Sample Site L Radial pH 7.37 Bicarbonate Actual 28.9 H Total CO2 30 Base Excess 4 H O2 Saturation 95 O2 % 8.0 ABG pCO2 49.7 H ABG pO2 78 Luke Test Positive O2 Delivery Device Cannula Vent Mode Not entered Radiography Diagnostic Testing: Radiology Impression Chest X-Ray 04/27/24 23:24 IMPRESSION: 1. Postop changes of remote fixation of the thoracolumbar spine. Multiple healed RIGHT rib fractures. 2. Mild basilar atelectasis greater on the LEFT than RIGHT. 3. No congestive failure. Electronically Signed: Mitch Foster MD at 0:05 EST , Rhythm Strip Rhythm Strip: Sinus Tach Rate: 109 Ectopy: None Physical Exam Const alert and oriented x3 Constitutional Narrative: looks weak and frail HEENT normocephalic, head/scalp atraumatic, moist oral mucous membranes and oropharynx normal Eyes PERRL and EOMs intact bilaterally Neck no lymphadenopathy, supple and no JVD General: trachea midline Lymph Lymphatic: no lymphadenopathy noted and no lymphedema noted Resp Resp Narrative: moderately diminished breath sounds bilaterally, few crackles, no wheezing. On 5L of oxygen by nasal canula Cardio regular rate, regular rhythm, S1 normal heart sound, S2 normal heart sound and no murmurs GI normal to inspection, nondistended, normoactive bowel sounds, soft to palpation, non-tender and non-distended Extremity normal capillary refill, no clubbing, cyanosis or edema and no calf tenderness General Extremity: no tenderness to palpation of joints or extremities Skin General Skin Exam: no breakdown Neuro CN's II-XII intact bilaterally, no focal motor deficits and no sensory deficits noted Motor Exam: strength 5/5 throughout and general weakness Psych thought process normal and cooperative Appearance: appropriate Assessment & Plan Assessment/Plan (1) Asthma exacerbation in COPD: (2) Respiratory syncytial virus (RSV): (3) RSV infection: (4) Pneumonia: PLAN: Plan #Acute on chronic hypoxic respiratory failure due to RSV pneumonia and COPD exacerbation * On 5 L of oxygen today. Usually wears 4 L at home. * On IV Solu-Medrol and breathing treatments bronchodilators. * Titrate oxygen to maintain saturation above 90%. #Debility and weakness likely due to RSV infection * PT OT on board. Fall precautions. # Hypothyroidism: On Synthroid and liothyronine #Hypertension: On Eliquis and Lasix #Hyperlipidemia: On statin #History of TIA: Plavix and statin #Depression and anxiety: On duloxetine, BuSpar and Ativan as needed as well as mirtazapine and topiramate #History of GERD: Stable. Will PPI and sucralfate. #Iron deficiency anemia: * on iron infusion. Hb today is 9.1. * Iron panel showed evidence of iron deficiency which is chronic for her. * Iron saturation was only 4.2 Charges/Coding Visit Charges Inpatient E&M: 55590 Subs Hosp L2
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
--- NOTE | 2024-04-28 14:41 | CASEMGMT ---
Addendum entered by Alize Patterson 04/28/24 15:03: DEWAYNE LOPEZ into pt room, pt present. Provided pt with a medic alert pamphlet from [facility] as well as other printed list of other providers. Also provided pt with a [email or web address] pamphlet for gis analyst developer and made aware of other places she can obtain. Made pt aware that [facility] was in network with her insurance. She denies need for referral at this time even if they are in network and it is covered by her insurance plan. She states that tried to get HHC for pt and that her insurance does not cover this. Pt is aware that her insurance covers skilled HH such as a SN or therapy. Pt is wanting someone to go to the grocery store and clean. She is aware that this is not covered. She denies need for list of private duty agencies. Pt also denies need for skilled HHC. She states she did well with therapy today and her assists her at home, which he concurs. Original Note: DC cleaner assistant checked in network providers for palliative care and [facility] was in network. Email sent to palliative to confirm if this was the case.
[2024-04-28] MEDS: Albuterol 2.5 MG/3 ML VIAL.NEB. INHALATION (17:10)
[2024-04-28] MEDS: Ondansetron 4 MG/2 ML Vial IV (17:22)
[2024-04-28] MEDS: proCHLORPERazine 10 MG/2 ML Vial 5 MG IV (20:21)
[2024-04-28] MEDS: Mirtazapine 15 MG Tablet PO (21:55)
[2024-04-28] MEDS: Atorvastatin Calcium 80 MG Tablet PO (21:55)
[2024-04-28] MEDS: Montelukast 10 MG Tablet PO (21:56)
[2024-04-28] MEDS: hydrOXYzine PAM 25 MG Capsule 50 MG PO (21:56)
[2024-04-28] MEDS: Topiramate 50 MG Tablet PO (21:59)
--- NOTE | 2024-04-28 23:49 | EKG12_ITS ---
Test Reason : CHEST PAIN Blood Pressure : */* mmHG Vent. Rate : 104 BPM Atrial Rate : 104 BPM P-R Int : 190 ms QRS Dur : 90 ms QT Int : 348 ms P-R-T Axes : 78 65 93 degrees QTcB Int : 457 ms Sinus tachycardia [address]onspecific ST and T wave abnormality Abnormal ECG When compared with ECG of 26-Apr-2024 17:21, T wave inversion now evident in Lateral leads Confirmed by BIENVENIDO MCKEON MD ([id number]), photographic editor DAKOTAH DELVALLE ([id number]) on 04/29/2024 8:27:41 AM Referred By: UNA Confirmed By: BIENVENIDO MCKEON MD
[2024-04-28] MEDS: LORazepam 1 MG Tablet PO (23:56)
[2024-04-29] VITALS (16 sets, daily range): BP systolic 107–147; BP diastolic 62–87; PULSE 71–108; RESP 17–24; TEMP 36.3–36.7; O2SAT 89–97; BMI 24.5
[2024-04-29] MEDS: Ipratropium/Albuterol Sulfate 3 ML AMPUL.NEB INHALATION ×6 (02:48→22:45)
[2024-04-29] MEDS: Liothyronine 5 MCG Tablet 10 MCG PO (06:11)
[2024-04-29] MEDS: Levothyroxine 75 MCG Tablet PO (06:12)
[2024-04-29] MEDS: Sucralfate 1 GM Tablet PO ×4 (06:12→21:55)
[2024-04-29 06:48] LABS: Absolute Lymphocyte Count 1.56 X10^3/uL (0.83-4.51); Absolute Neutrophil Count 16.3 X10^3/uL (2.0-7.7); Basophil# 0.11 X10^3/uL; Basophil% 0.6 % (0-1); Eosinophil# 0.02 X10^3/uL; Eosinophils% 0.1 % (0-5); Hematocrit 31.9 % (37-47); Hemoglobin 9.6 g/dL (12.0-15.0); Lymphocyte # 1.56 X10^3/ul (0.83-4.51); Mean Corp Hgb Conc 30.1 g/dL (32-36); Mean Corpuscular Hgb 23.2 pg (27.0-32.0); Mean Corpuscular Volume 77.2 fL (81-99); Mean Platelet Vol. 9.2 fl (6.2-12.0); Monocyte# 1.28 X10^3/uL; Monocyte% 6.6 % (0-10); NRBC Flagged by Analyzer 0.1 % (0-5); Neutrophil % 83.8 % (47-70); POSITIVE MORPHOLOGY YES; Platelet Count 718 K/mm3 (150-450); RBC Distribution Width SD 47.8 fl (35.1-43.9); Red Blood Count 4.13 M/mm3 (4.2-5.4); White Blood Count 19.4 K/mm3 (4.4-11.0)
[2024-04-29 07:04] LABS: Anion Gap 6 (5-15); BUN 43 mg/dL (7-18); BUN/Creat Ratio 39.4 RATIO (10-20); Calcium,Total 9.8 mg/dL (8.5-10.1); Chloride 91 mmol/L (98-107); Creatinine, Serum 1.09 mg/dL (0.55-1.02); EST Glomerular Filtration Rate 53 mL/min (>60); Est Glom Filt Rate - Afr Amer 64 mL/min (>60); Estimated Creatinine Clearance 35.48 ml/min; Glucose 132 mg/dL (74-106); Potassium 4.5 mmol/L (3.5-5.1); Sodium Level 130 mmol/L (136-145)
[2024-04-29 07:53] LABS: Differential Indicated SCAN CRITERIA MET
[2024-04-29 08:09] LABS: Polychromasia 1+
[2024-04-29 08:10] LABS: Ovalocyte 1+
[2024-04-29 08:12] LABS: Platelet Estimate MKD INC (ADEQ)
[2024-04-29] MEDS: Ondansetron 4 MG/2 ML Vial IV ×2 (08:46→20:45)
[2024-04-29] MEDS: 0.9% Saline Lock 10 ML Syringe IV ×5 (08:47→21:53)
[2024-04-29] MEDS: busPIRone 5 MG Tablet 10 MG PO ×2 (08:49→21:54)
[2024-04-29] MEDS: DULoxetine Hcl 60 MG Capsule PO ×2 (08:50→21:55)
[2024-04-29] MEDS: Metoprolol Tartrate 25 MG Tablet PO ×2 (08:50→21:54)
[2024-04-29] MEDS: Furosemide 40 MG Tablet PO (08:50)
[2024-04-29] MEDS: Enoxaparin 40 MG/0.4 ML Syringe SC (08:50)
[2024-04-29] MEDS: Pantoprazole Sodium 40 MG Tablet PO ×2 (08:51→21:54)
[2024-04-29] MEDS: Baclofen 10 MG Tablet PO (08:51)
[2024-04-29] MEDS: Cholecalciferol (VIT D3) 25 MCG TABLET (1,000 UNITS) PO (08:51)
[2024-04-29] MEDS: LORazepam 1 MG Tablet PO ×2 (08:51→21:55)
[2024-04-29] MEDS: Amitriptyline 10 MG Tablet PO (08:51)
[2024-04-29] MEDS: Clopidogrel Bisulfate 75 MG Tablet PO (08:51)
[2024-04-29] MEDS: guaiFENesin 1,200 MG Tablet 1200 MG PO ×2 (08:52→21:54)
[2024-04-29] MEDS: Sodium Ferric Gluconat 250 MG in 0.9% Normal Saline 250 ML 135 MG IV (10:21)
--- NOTE | 2024-04-29 11:08 | CT_ITS ---
STUDY: CTA CHEST REASON FOR EXAM: Female, 68 years old. worsening shortness of breath RADIATION DOSAGE (If Supplied By Facility): CTDIvol = ( 8.75 ) mGy, DLP = ( 228.13 ) mGycm TECHNIQUE: The examination was performed with the intravenous administration of IV 100mL Isovue-370. Post-processing of the angiographic images was performed, with multiplanar reformation and 3D reconstruction. Individualized dose optimization techniques were used for this CT. COMPARISON: 02/24/2024 FINDINGS: Normal enhancement of the main pulmonary artery and right and left pulmonary arteries. Normal enhancement of the bilateral peripheral pulmonary arteries. There is no demonstrated pulmonary embolism. The AIDOC iman suggests there is a filling defect within right perihilar branches but the source images did not show evidence of low-density filling defect within the right pulmonary artery, or branches leading to the right upper, middle or lower lobes. Normal thoracic aorta and visualized great vessels. There is no demonstrated aortic dissection. Normal heart and pericardium. There are calcifications of the coronary arteries. No suspicious axillary, mediastinal or perihilar adenopathy. There is peribronchial thickening. The lungs are hyper expanded, with flattening of the hemidiaphragms. There is underlying emphysema with bronchiectatic changes in the right middle lobe, evidence of chronic bronchitis, tree-in-bud opacifications in both lung prasad suggesting small airways inflammation, multifocal pneumonitis in the periphery of both lung prasad. There is bibasilar atelectasis. No suspicious noncalcified mass or nodule. Normal chest wall structures. There are degenerative and postsurgical changes of thoracic spine. No acute findings Normal visualized upper abdomen. CT/CTA Chest W/WO Contrast IMPRESSION: No filling defects are noted within the pulmonary arteries or its branches to suspect PE. This is despite the suggestion of the AI iman that a PE is present. Underlying emphysema with chronic bronchitis, bronchiectatic changes in the right middle lobe, small airways inflammation throughout both lung prasad and bibasilar atelectasis. No effusion or suspicious noncalcified mass or nodule. Emphysema is an underlying risk factor for lung carcinoma. Patient should be considered for lung cancer screening program No suspicious adenopathy Degenerative bony changes Electronically Signed: Jc Day MD at 12:15 EST ,
--- NOTE | 2024-04-29 11:32 | EX.PCM.CONCC ---
Assessment & Plan Assessment/Plan (1) Acute exacerbation of chronic obstructive pulmonary disease (COPD): PLAN: Plan RECOMMENDATIONS: 1. Continue scheduled bronchodilators and IV steroids. 2. Encourage incentive spirometer use and mobilize patient as tolerated. 3. Check troponin and procalcitonin. 4. Await results of CTA chest. 5. Start empiric antimicrobials. 6. Continue appropriate DVT prophylaxis. IMPRESSIONS: 1. Acute on chronic hypoxemic respiratory failure Clinical suspicion for COPD exacerbation related to RSV infection. However, the patient's respiratory status has been somewhat tenuous over the last several days. Therefore, it is reasonable to proceed with CTA chest to rule out pulmonary embolism. In the interim, we will add antimicrobials to the patient's medication regimen. Agree with continuing scheduled bronchodilators and steroids for now. Continue nocturnal PAP therapy per home regimen. The patient does have a baseline supplemental oxygen requirement of 4 L/min. 2. History of obstructive sleep apnea Continue nocturnal PAP therapy per home regimen. 3. History of hypothyroidism/hypertension/hyperlipidemia/depression/anxiety Complicates care, management, recovery and prognosis. Continue home medications as indicated. This note was generated with [employer] dictation software. It may contain incorrect words, spelling, and punctuation that were not noted in checking the note before signing. HPI Consult Data Date of Consult: 04/29/24 HPI Narrative Reason for Consultation: COPD exacerbation HPI Narrative: The patient is a 68-year-old female, with a history as outlined below, who presented to the emergency department on April 26 with worsening shortness of breath. The patient is currently followed in the pulmonary medicine clinic due to a history of stage II Gold COPD, right middle lobe pulmonary nodule, obstructive sleep apnea and chronic hypoxemic respiratory failure, with a baseline oxygen requirement of 4 L/min. The patient is currently prescribed nocturnal auto titrating CPAP therapy. She is on a triple therapy inhaler regimen at her baseline. On presentation to the emergency department, the patient was documented to be afebrile and hemodynamically stable. Laboratory evaluation revealed a normal white blood cell count with baseline anemia. Chemistry profile was unremarkable. RSV PCR was positive on April 26. Chest x-ray demonstrated basilar atelectasis. The patient was placed on scheduled bronchodilators and IV steroids. She was subsequently admitted to the medical surgical floor for further management. This afternoon, the patient reports the presence of chest pressure. She denies the presence of a cough. [facility]LY [facility] Medical History (Updated 04/29/24 @ 11:[address] Caesar Raza, DO) Acute exacerbation of chronic obstructive pulmonary disease (COPD) PTSD (post-traumatic stress disorder) Hyperthyroidism GI bleed Former smoker CPAP (continuous positive airway pressure) dependence On home oxygen therapy Myocardial infarct Congestive heart failure (CHF) Migraines Fall Contusion of nose Periorbital contusion of right eye Contusion of multiple fingers Chronic hypoxic respiratory failure Contusion of scalp Normocytic anemia Fibromyalgia Chronic respiratory failure with hypoxia RAUL (obstructive sleep apnea) Incisional hernia TIA (transient ischemic attack) Osteoporosis Osteoarthritis Thyroid disorder Diverticulitis History of heart attack Sleep apnea History of pneumonia COPD (chronic obstructive pulmonary disease) History of bronchitis Asthma HTN (hypertension) Depression Anxiety Nausea and vomiting GERD (gastroesophageal reflux disease) Heart disease spinal stimulator Spinal stenosis Chronic back pain Hypothyroidism Home Medications ?Medication ?Instructions ?Recorded ?Last Taken ?Type atorvastatin 80 mg tablet 80 mg PO QHS cholesterol 06/01/13 05/25/14 History 80 MG clopidogrel 75 mg tablet 75 mg PO DAILY anti platelet 06/01/13 11/18/23 History lorazepam 1 mg tablet (Ativan) 1 mg PO TID PRN Anxiety 11/17/18 Unknown History duloxetine 60 mg capsule,delayed 60 mg PO BID DEPRESSION 06/19/20 Unknown History release furosemide 40 mg tablet 40 mg PO DAILY water pill 08/23/22 Unknown History liothyronine 5 mcg tablet 10 mcg PO DAILY HYPOTHYROIDISM 08/23/22 Unknown History pantoprazole 40 mg tablet,delayed 40 mg PO BID ACID REFLEX 30 days 05/06/23 Unknown Rx release #60 tabs baclofen 10 mg tablet 10 mg PO DAILY SPASMS 10/09/23 Unknown History cholecalciferol (vitamin D3) 25 25 mcg PO .WEEKLY SUPPLEMENT 10/09/23 Unknown History mcg (1,000 unit) capsule metoprolol tartrate 25 mg tablet 25 mg PO Q12H blood pressure 10/09/23 Unknown History acetaminophen 500 mg tablet 500 mg PO Q6H PRN pain 11/05/23 Unknown History tiotropium bromide 2.5 2 inh inhalation DAILY LUNGS #3 ea 02/02/24 Unknown Rx mcg/actuation mist for inhalation (Spiriva Respimat) buspirone 10 mg tablet 10 mg PO BID ANXIETY 02/09/24 Unknown History diclofenac sodium 75 mg 75 mg PO BID see phyisican 02/09/24 Unknown History tablet,delayed release sucralfate 100 mg/mL oral 10 ml PO ACHS FOR STOMACH 02/09/24 Unknown History suspension topiramate 50 mg tablet 50 mg PO QHS SLEEP 02/09/24 Unknown History montelukast 10 mg tablet 10 mg PO QPM SEE PCP #90 tabs 02/15/24 Unknown Rx mirtazapine 15 mg tablet 15 mg PO QHS sleep #30 tabs 03/01/24 Unknown Rx albuterol sulfate 90 mcg/actuation 2 puff inhalation Q4H PRN COPD 03/11/24 Unknown History aerosol inhaler amitriptyline 10 mg tablet 10 mg PO DAILY nerve pain 03/11/24 Unknown History cyclobenzaprine 5 mg tablet 5 mg PO Q8H PRN muscle spasms 03/11/24 Unknown History furosemide 20 mg tablet 20 mg PO DAILY water pill 03/11/24 Unknown History hydroxyzine HCl 50 mg tablet 50 mg PO QHS 03/11/24 Unknown History ipratropium 0.5 mg-albuterol 3 mg 3 ml inhalation .Q4-6H PRN 03/11/24 Unknown History (2.5 mg base)/3 mL nebulization shortness of breath or wheezing soln levothyroxine 50 mcg tablet 50 mcg PO SUSA thyroid 03/11/24 Unknown History levothyroxine 75 mcg tablet 75 mcg PO MOTUWETHFR THYROID 03/11/24 Unknown History levofloxacin 750 mg tablet 750 mg PO DAILY PROPHYLAXIS #7 tabs 03/31/24 Unknown Rx mometasone-formoterol HFA 200 2 puff inhalation BID COPD 04/26/24 Unknown History mcg-5 mcg/actuation aerosol inhaler (Dulera) temazepam 30 mg capsule 30 mg PO QHS PRN PRN sleep 04/26/24 Unknown History Allergy/AdvReac Type Severity Reaction Status Date / Time [facility] Allergy Itching Verified 04/26/24 16:54 clarithromycin Allergy Hives Verified 04/26/24 16:54 doxycycline Allergy Itching Verified 04/26/24 16:54 Penicillins Allergy Hives Verified 04/26/24 16:54 Sulfa (Sulfonamide Allergy Hives Verified 04/26/24 16:54 Antibiotics) biotin AdvReac Unknown Unknown Verified 04/26/24 16:54 zolpidem (From Ambien) AdvReac Unknown mental Verified 04/26/24 16:54 issues Family History Father Asthma Heart disease Grandmother Breast cancer Diabetes Mother Heart disease COPD (chronic obstructive pulmonary disease) Other Cancer Surgical History Hx of BKA History of appendectomy History of incisional hernia repair History of incisional hernia repair (~12/20/18) Hx of cholecystectomy History of esophagogastroduodenoscopy (EGD) (~07/2018) Previous back surgery S/P hysterectomy S/P carpal tunnel release S/P knee surgery S/P correction of deviated nasal septum Status post thyroidectomy H/O heart artery stent Status post amputation of right foot Social History household members: spouse Smoking Status: Former smoker Tobacco: How many years used: 25 second hand exposure: Yes alcohol intake: never substance use type: does not use caffeine: Yes what type of physical activity do you participate in: none frequency: does not exercise ROS ROS Narrative 10 systems were reviewed with pertinent positives as noted in the HPI above. Physical Exam Const alert, oriented x3 and no apparent distress General Appearance: cooperative HEENT normocephalic and head/scalp atraumatic Teeth and Gingiva: poor dentition Eyes EOMs intact bilaterally, conjunctivae normal and no scleral icterus Neck supple General: trachea midline Chest inspection of chest normal Resp normal respiratory effort Auscultation: rales right and diminished lung sounds Cardio regular rate and regular rhythm GI normal to inspection, nondistended, normoactive bowel sounds Extremity no clubbing, cyanosis or edema Skin no rashes or lesions noted Neuro CN's II-XII intact bilaterally, moves all extremities and no focal motor deficits Psych Mood & Affect: flat affect Lab / Micro Data 04/29/24 06:15 04/29/24 06:15 Labs: Laboratory Results - last 24 hr 04/29/24 06:15: WBC 19.4 H, RBC 4.13 L, Hgb 9.6 L, Hct 31.9 L, MCV 77.2 L, MCH 23.2 L, MCHC 30.1 L, RDW Std Deviation 47.8 H, RDW Coeff of [place] 17.0 H, Plt Count 718 H, MPV 9.2, Immature Gran % (Auto) 0.900, Neut % (Auto) 83.8 H, Lymph % (Auto) 8.0 L, [place] % (Auto) 6.6, Eos % (Auto) 0.1, Baso % (Auto) 0.6, Absolute Neuts (auto) 16.3 H, Absolute Lymphs (auto) 1.56, Nucleated RBC % 0.1, Platelet Estimate MKD INC, Polychromasia 1+, Ovalocytes 1+, Sodium 130 L, Potassium 4.5, Chloride 91 L, Carbon Dioxide 33.0 H, Anion Gap 6, BUN 43 H, Creatinine 1.09 H, Estim Creat Clear Calc 35.48, Est GFR (MDRD) Af Amer 64, Est GFR (MDRD) Non-Af 53 L, BUN/Creatinine Ratio 39.4 H, Glucose 132 H, Calcium 9.8 Rhythm Strip Rhythm Strip: Sinus Tach Rate: 109 Ectopy: None Charges/Coding Visit Charges Inpatient E&M: 37962 Init Hosp L3
--- NOTE | 2024-04-29 11:40 | PCM.PROGNOTE ---
Subjective Subjective Patient seen and examined. She is more short of breath today and is on 8 L of oxygen, up from 5 L yesterday. She says she feels more short of breath and feels weaker. She denies any chest pain but is still coughing. She still does have some wheezing. Review of systems otherwise negative. Objective Data Objective Data Vital Signs: Vital Signs Temp Pulse Resp BP Pulse Ox O2 Del Method O2 Flow Rate 97.5 F L 93 20 H 135/67 H 91 High Flow 8 04/29/24 08:15 04/29/24 11:38 04/29/24 11:38 04/29/24 08:15 04/29/24 08:15 04/29/24 09:00 04/29/24 09:00 Oxygen Flow Rate (L/min) 8 Oxygen Delivery Method High Flow Weight: 113 lb 12.136 oz Body Mass Index (BMI) 24.5 Intake & Output: Intake and Output for Last 24 Hours 04/27/24 04/28/24 04/29/24 23:59 23:59 23:59 Intake Total 710 / 710 790 / 790 100 / 100 Output Total 400 / 400 3150 / 3150 0 / 0 Balance 310 / 310 -2360 / -2360 100 / 100 Lab / Micro Data 04/29/24 06:15 04/29/24 06:15 Labs: Laboratory Results - last 24 hr 04/29/24 06:15: WBC 19.4 H, RBC 4.13 L, Hgb 9.6 L, Hct 31.9 L, MCV 77.2 L, MCH 23.2 L, MCHC 30.1 L, RDW Std Deviation 47.8 H, RDW Coeff of [place] 17.0 H, Plt Count 718 H, MPV 9.2, Immature Gran % (Auto) 0.900, Neut % (Auto) 83.8 H, Lymph % (Auto) 8.0 L, [place] % (Auto) 6.6, Eos % (Auto) 0.1, Baso % (Auto) 0.6, Absolute Neuts (auto) 16.3 H, Absolute Lymphs (auto) 1.56, Nucleated RBC % 0.1, Platelet Estimate MKD INC, Polychromasia 1+, Ovalocytes 1+, Sodium 130 L, Potassium 4.5, Chloride 91 L, Carbon Dioxide 33.0 H, Anion Gap 6, BUN 43 H, Creatinine 1.09 H, Estim Creat Clear Calc 35.48, Est GFR (MDRD) Af Amer 64, Est GFR (MDRD) Non-Af 53 L, BUN/Creatinine Ratio 39.4 H, Glucose 132 H, Calcium 9.8 Micro: Microbiology 04/26/24 17:32 Mucosa - Nose SARS-CoV-2, Influenza & RSV (PCR) - Final RSV Rhythm Strip Rhythm Strip: Sinus Tach Rate: 109 Ectopy: None Physical Exam Const alert, oriented x3, no apparent distress and average body habitus; Negative for healthy appearing Constitutional Narrative: looks weak and frail General Appearance: cooperative and comfortable HEENT normocephalic, head/scalp atraumatic, hearing grossly normal bilaterally, nasal mucous membranes and turbinates normal, moist oral mucous membranes and oropharynx normal Eyes PERRL, EOMs intact bilaterally and conjunctivae normal Eyes Narrative: Conjunctiva are slightly pale bilaterally, no scleral icterus Neck full ROM, no lymphadenopathy, supple and no JVD General: trachea midline Lymph Lymphatic: no lymphadenopathy noted and no lymphedema noted Chest inspection of chest normal Resp no retractions and No clear to auscultation bilaterally Resp Narrative: moderately diminished breath sounds bilaterally, few crackles, no wheezing. On 8L of oxygen by nasal canula Auscultation: wheezes and diminished lung sounds; Negative for rales or rhonchi Cardio regular rate, regular rhythm, S1 normal heart sound, S2 normal heart sound, no murmurs, no rub, no gallops, no clicks and peripheral pulses 2+ throughout GI normal to inspection, nondistended, normoactive bowel sounds, soft to palpation, non-tender and non-distended Back/Spine normal ROM Extremity normal to inspection, full ROM, normal capillary refill, no clubbing, cyanosis or edema, no calf tenderness and no pedal edema General Extremity: no tenderness to palpation of joints or extremities Skin no rashes or lesions noted and skin turgor normal General Skin Exam: no breakdown Neuro oriented x3, CN's II-XII intact bilaterally, moves all extremities, no focal motor deficits and no sensory deficits noted Speech: speech normal Motor Exam: strength 5/5 throughout and general weakness Psych thought process normal and cooperative Psych Narrative: Flat affect. Mood & Affect: flat affect Assessment & Plan Assessment/Plan (1) Asthma exacerbation in COPD: (2) Respiratory syncytial virus (RSV): (3) Pneumonia: PLAN: Plan #Acute on chronic hypoxic respiratory failure due to RSV pneumonia and COPD exacerbation Up to 8 L today. Was on 5 L yesterday. Usually wears 4 L at home. On IV Solu-Medrol and breathing treatments bronchodilators. Was also on IV Lasix which was switched to p.o. Lasix today. His BNP was only 183. Will get CT of the chest today's to evaluate due to worsening shortness of breath. Pulmonology consulted. She had 2D echo done in December 2023 which showed EF of 60% with no evidence of diastolic dysfunction and no regional wall motion abnormalities noted with pulmonary artery pressure not estimated but probably normal On 5 L of oxygen today. Usually wears 4 L at home. On IV Solu-Medrol and breathing treatments bronchodilators. Titrate oxygen to maintain saturation above 90%. #Debility and weakness likely due to RSV infection PT OT on board. Fall precautions. # Hypothyroidism: On Synthroid and liothyronine #Hypertension: On Eliquis and Lasix #Hyperlipidemia: On statin #History of TIA: Plavix and statin #Depression and anxiety: On duloxetine, BuSpar and Ativan as needed as well as mirtazapine and topiramate #History of GERD: Stable. Will PPI and sucralfate. #Iron deficiency anemia: on iron infusion. Hb today is 9.1. Iron panel showed evidence of iron deficiency which is chronic for her. Iron saturation was only 4.2 Iron supplementation \DVT prophylaxis: Lovenox Charges/Coding Visit Charges Inpatient E&M: 82894 Subs Hosp L3
--- NOTE | 2024-04-29 11:45 | CASEMGMT ---
Green sheet on chart should pt be dc'd over the weekend for an increase in oxygen.
[2024-04-29 13:07] LABS: Procalcitonin 0.21 ng/mL (0.00-0.09)
[2024-04-29 13:19] LABS: Troponin-I HS 8 pg/mL (3.0-54.0)
[2024-04-29] MEDS: levoFLOXacin IV 750 MG/150 ML BAG 100 MG IV (13:30)
[2024-04-29] MEDS: hydrOXYzine PAM 25 MG Capsule 50 MG PO (21:54)
[2024-04-29] MEDS: Mirtazapine 15 MG Tablet PO (21:54)
[2024-04-29] MEDS: Montelukast 10 MG Tablet PO (21:55)
[2024-04-29] MEDS: Topiramate 50 MG Tablet PO (21:55)
[2024-04-30] VITALS (16 sets, daily range): BP systolic 106–137; BP diastolic 51–72; PULSE 81–95; RESP 16–24; TEMP 36.4–36.5; O2SAT 90–97; BMI 23.7
--- NOTE | 2024-04-30 02:38 | CPS ---
changed to bipap 12/01 with 6 l/m bleed due to low sat-sats now in the high 90's
[2024-04-30] MEDS: LORazepam 1 MG Tablet PO ×3 (02:55→23:07)
--- NOTE | 2024-04-30 03:47 | CPS ---
decreased to 16/8 due to pt comfort
[2024-04-30 05:53] LABS: Absolute Lymphocyte Count 1.54 X10^3/uL (0.83-4.51); Basophil# 0.12 X10^3/uL; Basophil% 0.5 % (0-1); Eosinophil# 0.03 X10^3/uL; Eosinophils% 0.1 % (0-5); Hematocrit 31.1 % (37-47); Hemoglobin 9.5 g/dL (12.0-15.0); Lymphocyte # 1.54 X10^3/ul (0.83-4.51); Lymphocyte % 6.1 % (19-41); Mean Corp Hgb Conc 30.5 g/dL (32-36); Mean Corpuscular Hgb 23.3 pg (27.0-32.0); Mean Corpuscular Volume 76.4 fL (81-99); Mean Platelet Vol. 9.4 fl (6.2-12.0); Monocyte# 1.23 X10^3/uL; Monocyte% 4.9 % (0-10); NRBC Flagged by Analyzer 0.4 % (0-5); Neutrophil # 21.99 X10^3/uL (2.7-7.7); Neutrophil % 87.5 % (47-70); POSITIVE DIFFERENTIAL YES; POSITIVE MORPHOLOGY YES; Platelet Count 733 K/mm3 (150-450); RBC Distribution Width CV 16.6 % (11.6-14.6); RBC Distribution Width SD 46.4 fl (35.1-43.9); Red Blood Count 4.07 M/mm3 (4.2-5.4); White Blood Count 25.1 K/mm3 (4.4-11.0)
[2024-04-30 06:04] LABS: Anion Gap 9 (5-15); BUN 54 mg/dL (7-18); BUN/Creat Ratio 41.2 RATIO (10-20); Calcium,Total 9.4 mg/dL (8.5-10.1); Chloride 88 mmol/L (98-107); Creatinine, Serum 1.31 mg/dL (0.55-1.02); EST Glomerular Filtration Rate 43 mL/min (>60); Est Glom Filt Rate - Afr Amer 52 mL/min (>60); Estimated Creatinine Clearance 29.52 ml/min; Glucose 150 mg/dL (74-106); Potassium 4.8 mmol/L (3.5-5.1); Sodium Level 128 mmol/L (136-145)
[2024-04-30 06:08] LABS: Differential Indicated SCAN CRITERIA MET
[2024-04-30] MEDS: Levothyroxine 50 MCG Tablet PO (06:13)
[2024-04-30] MEDS: 0.9% Saline Lock 10 ML Syringe IV ×3 (06:13→14:01)
[2024-04-30] MEDS: Sucralfate 1 GM Tablet PO ×4 (06:13→23:06)
[2024-04-30] MEDS: Liothyronine 5 MCG Tablet 10 MCG PO (06:13)
[2024-04-30 07:05] LABS: Differential Comment SCANNED
[2024-04-30] MEDS: Ipratropium/Albuterol Sulfate 3 ML AMPUL.NEB INHALATION ×5 (07:16→23:15)
[2024-04-30] MEDS: Baclofen 10 MG Tablet PO (08:22)
[2024-04-30] MEDS: busPIRone 5 MG Tablet 10 MG PO ×2 (08:22→23:06)
[2024-04-30] MEDS: Enoxaparin 40 MG/0.4 ML Syringe SC (08:23)
[2024-04-30] MEDS: Metoprolol Tartrate 25 MG Tablet PO ×2 (08:23→23:05)
[2024-04-30] MEDS: guaiFENesin 1,200 MG Tablet 1200 MG PO ×2 (08:23→23:16)
[2024-04-30] MEDS: Amitriptyline 10 MG Tablet PO (08:23)
[2024-04-30] MEDS: Pantoprazole Sodium 40 MG Tablet PO ×2 (08:23→23:16)
[2024-04-30] MEDS: DULoxetine Hcl 60 MG Capsule PO ×2 (08:23→23:06)
[2024-04-30] MEDS: Furosemide 40 MG Tablet PO (08:27)
[2024-04-30] MEDS: Clopidogrel Bisulfate 75 MG Tablet PO (09:51)
[2024-04-30] MEDS: Ondansetron 4 MG/2 ML Vial IV ×2 (11:35→23:12)
--- NOTE | 2024-04-30 12:00 | PN_ITS ---
Subjective Subjective Patient seen and examined. She complains of vomiting overnight though the nurse tells me that she only had nausea. She is up to 10 L now. She denies any chest pain, palpitations, dizziness, nausea or vomiting. WBC is up to 25.1. Review of systems is otherwise negative. Objective Data Objective Data Vital Signs: Vital Signs Temp Pulse Resp BP Pulse Ox O2 Del Method O2 Flow Rate 97.6 F L 94 22 H 125/62 H 94 Nasal Cannula 10 04/30/24 11:32 04/30/24 11:32 04/30/24 11:32 04/30/24 11:32 04/30/24 11:32 04/30/24 11:32 04/30/24 11:32 Oxygen Flow Rate (L/min) 10 Oxygen Delivery Method Nasal Cannula Weight: 117 lb 8.102 oz Body Mass Index (BMI) 23.7 Intake & Output: Intake and Output for Last 24 Hours 04/28/24 04/29/24 04/30/24 23:59 23:59 23:59 Intake Total 790 / 790 520 / 520 100 / 100 Output Total 3150 / 3150 900 / 1500 1000 / 1000 Balance -2360 / -2360 -380 / -980 -900 / -900 Lab / Micro Data 04/30/24 05:20 04/30/24 05:20 Labs: Laboratory Results - last 24 hr 04/29/24 12:30: Troponin I High Sens 8, Procalcitonin 0.21 H 04/30/24 05:20: WBC 25.1 H, RBC 4.07 L, Hgb 9.5 L, Hct 31.1 L, MCV 76.4 L, MCH 23.3 L, MCHC 30.5 L, RDW Std Deviation 46.4 H, RDW Coeff of Genaro 16.6 H, Plt Count 733 H, MPV 9.4, Immature Gran % (Auto) 0.900, Neut % (Auto) 87.5 H, Lymph % (Auto) 6.1 L, [place] % (Auto) 4.9, Eos % (Auto) 0.1, Baso % (Auto) 0.5, Absolute Neuts (auto) 22.0 H, Absolute Lymphs (auto) 1.54, Nucleated RBC % 0.4, Differential Comment SCANNED, Sodium 128 L, Potassium 4.8, Chloride 88 L, Carbon Dioxide 31.0, Anion Gap 9, BUN 54 H, Creatinine 1.31 H, Estim Creat Clear Calc 29.52, Est GFR (MDRD) Af Amer 52 L, Est GFR (MDRD) Non-Af 43 L, BUN/Creatinine Ratio 41.2 H, Glucose 150 H, Calcium 9.4 Micro: Microbiology 04/26/24 17:32 Mucosa - Nose SARS-CoV-2, Influenza & RSV (PCR) - Final RSV Radiography Diagnostic Testing: Radiology Impression Chest CTA 04/29/24 11:08 IMPRESSION: No filling defects are noted within the pulmonary arteries or its branches to suspect PE. This is despite the suggestion of the AI iman that a PE is present. Underlying emphysema with chronic bronchitis, bronchiectatic changes in the right middle lobe, small airways inflammation throughout both lung prasad and bibasilar atelectasis. No effusion or suspicious noncalcified mass or nodule. Emphysema is an underlying risk factor for lung carcinoma. Patient should be considered for lung cancer screening program No suspicious adenopathy Degenerative bony changes Electronically Signed: Jc Day MD at 12:15 EST Reading Location ID and State: [facility] / [place] , Service support , Rhythm Strip Rhythm Strip: Sinus Tach Rate: 109 Ectopy: None Physical Exam Const alert, oriented x3, no apparent distress and average body habitus Constitutional Narrative: looks weak and frail General Appearance: cooperative and comfortable HEENT normocephalic, head/scalp atraumatic, hearing grossly normal bilaterally, nasal mucous membranes and turbinates normal and moist oral mucous membranes Eyes PERRL, EOMs intact bilaterally and conjunctivae normal Eyes Narrative: Conjunctiva are slightly pale bilaterally, no scleral icterus Neck full ROM, no lymphadenopathy, supple and no JVD General: trachea midline Lymph Lymphatic: no lymphadenopathy noted and no lymphedema noted Chest inspection of chest normal Resp Resp Narrative: moderately diminished breath sounds bilaterally, bilateral crackles, no wheezing. On 10 L of oxygen by nasal canula Cardio regular rate, regular rhythm, S1 normal heart sound, S2 normal heart sound, no murmurs, no rub, no gallops, no clicks and peripheral pulses 2+ throughout GI normal to inspection, nondistended, normoactive bowel sounds, soft to palpation, non-tender and non-distended Back/Spine normal ROM Extremity normal to inspection, full ROM, normal capillary refill, no clubbing, cyanosis or edema, no calf tenderness and no pedal edema Extremity Narrative: Pedal and radial pulses are 2+ bilaterally General Extremity: no tenderness to palpation of joints or extremities Skin no rashes or lesions noted, skin turgor normal, no jaundice, no petechiae and no mottling Skin Narrative: Skin is frail, scattered ecchymosis, no significant wounds noted General Skin Exam: no breakdown Neuro oriented x3, CN's II-XII intact bilaterally, moves all extremities, no focal motor deficits and no sensory deficits noted Speech: speech normal Motor Exam: strength 5/5 throughout and general weakness Psych thought process normal and cooperative Psych Narrative: Flat affect. Appearance: appropriate Mood & Affect: flat affect Assessment & Plan Assessment/Plan (1) Asthma exacerbation in COPD: (2) Respiratory syncytial virus (RSV): (3) Pneumonia: PLAN: Plan #Acute on chronic hypoxic respiratory failure due to RSV pneumonia and COPD exacerbation * now up to 10L of oxygen. was on 8L yesterday * says she vomited overnight, so I am concerned she may have aspirated also. * Up to 8 L today. Was on 5 L yesterday. Usually wears 4 L at home. * On IV Solu-Medrol and breathing treatments bronchodilators. * on IV antibiotics also per pulmonology- IV levaquin * pulm on board * aspiration precautions. * on PO lasix * CT chest done yesterday showed no evidence of filling defects but showed underlying emphysema with chronic bronchitis and bronchiectasis changes in the right middle lobe with small airway inflammation throughout the lung prasad bilaterally as well as bibasilar atelectasis * continue IV solumedrol * breathing treatment with bronchodilators * pulmonology on board * * #Hyponatremia: * Sodium is 128. Was 130 yesterday. * Lasix may be contributing so will hold lasix for now and hydrate gently with IVF. #Debility and weakness likely due to RSV infection * PT OT on board. Fall precautions. # Hypothyroidism: On Synthroid and liothyronine #Hypertension: On Eliquis and Lasix #Hyperlipidemia: On statin #History of TIA: Plavix and statin #Depression and anxiety: On duloxetine, BuSpar and Ativan as needed as well as mirtazapine and topiramate #History of GERD: Stable. Will PPI and sucralfate. #Iron deficiency anemia: * on iron infusion. Hb today is 9.5 * Iron panel showed evidence of iron deficiency which is chronic for her. * Iron saturation was only 4.2 * Iron supplementation * \DVT prophylaxis: Lovenox Charges/Coding Visit Charges Inpatient E&M: 65080 Subs Hosp L3
[2024-04-30] MEDS: 0.9% Normal Saline (1000mL) 1,000 ML 100 ML IV ×2 (13:00→23:12)
--- NOTE | 2024-04-30 14:12 | PN.CC_ITS ---
Objective Data Objective Data Vital Signs: Vital Signs Last response 3 Temperature 36.4 C L 04/30/24 11:32 Temperature Source Oral 04/30/24 11:32 Pulse Rate 94 04/30/24 11:32 Pulse Strength Normal (2+) 04/29/24 22:00 Respiratory Rate 22 H 04/30/24 11:32 Respiratory Effort Short of Breath 04/30/24 02:58 Respiratory Depth Deep 04/30/24 08:04 Respiratory Pattern Normal 04/30/24 11:01 Blood Pressure 125/62 H 04/30/24 11:32 Blood Pressure Mean 83 04/30/24 11:32 Blood Pressure Source Monitor 04/30/24 11:32 Blood Pressure Position Semi-Fowlers 04/30/24 11:32 Blood Pressure Location Right Arm 04/30/24 11:32 Pulse Ox 94 04/30/24 11:32 Oxygen Delivery Method Nasal Cannula 04/30/24 11:32 Oxygen Flow Rate (L/min) 10 04/30/24 11:51 I&O: I&O Last 24 Hours 3 04/29/24 04/30/24 04/30/24 23:59 11:59 23:59 Intake Total 420 / 520 100 / 100 Output Total 900 / 1500 1000 / 1200 200 / 1200 Balance -480 / -980 -900 / -1100 -200 / -1100 I&O: Total Stay 3 04/26/24 16:53 thru 04/30/24 13:02 Intake Total 2765 Output Total 5650 Balance -2885 Current Meds Ordered / Administered: Current meds ordered / Administered 3 Generic Name Dose Route Start Last Admin Trade Name Mindi PRN Reason Stop Dose Admin Acetaminophen 650 mg 04/26/24 21:36 Acetaminophen 325 Mg Tablet PO Q6H PRN PRN Pain 1-10 Or Fever>100.7 Albuterol Sulfate 2.5 mg 04/26/24 21:36 04/28/24 17:10 Albuterol 2.5 Mg/3 Ml Vial.Neb. INHALATION 2.5 mg Q2H PRN PRN Administration SHORTNESS OF BREATH Albuterol/Ipratropium 3 ml 04/26/24 21:36 04/30/24 11:01 Ipratropium/Albuterol Sulfate 3 Ml Ampul.Neb INHALATION 3 ml Q4H.RT JESSICA Administration Amitriptyline HCl 10 mg 04/27/24 10:00 04/30/24 08:23 Amitriptyline 10 Mg Tablet PO 10 mg DAILY JESSICA Administration Atorvastatin Calcium 80 mg 04/26/24 22:00 04/29/24 21:57 Atorvastatin Calcium 80 Mg Tablet PO Not Given QHS JESSICA Baclofen 10 mg 04/27/24 10:00 04/30/24 08:22 Baclofen 10 Mg Tablet PO 10 mg DAILY JESSICA Administration Buspirone HCl 10 mg 04/26/24 22:00 04/30/24 08:22 Buspirone 5 Mg Tablet PO 10 mg BID JESSICA Administration Cholecalciferol 25 mcg 04/29/24 10:00 04/29/24 08:51 Cholecalciferol (Vit D3) 25 Mcg Tablet (1,000 Units) PO 25 mcg Fr@1000 JESSICA Administration Clopidogrel Bisulfate 75 mg 04/27/24 10:00 04/30/24 09:51 Clopidogrel Bisulfate 75 Mg Tablet PO 75 mg DAILY JESSICA Administration Duloxetine HCl 60 mg 04/26/24 22:00 04/30/24 08:23 Duloxetine Hcl 60 Mg Capsule PO 60 mg BID JESSICA Administration Enoxaparin Sodium 30 mg 05/01/24 10:00 Enoxaparin 30 Mg/0.3 Ml Syringe SC DAILY JESSICA Furosemide 40 mg 04/29/24 10:00 04/30/24 08:27 Furosemide 40 Mg Tablet PO 40 mg DAILY JESSICA Administration Protocol Guaifenesin 1,200 mg 04/26/24 22:00 04/30/24 08:23 Guaifenesin 1,200 Mg Tablet PO 1,200 mg BID JESSICA Administration Hydroxyzine Pamoate 50 mg 04/26/24 22:00 04/29/24 21:54 Hydroxyzine Dominique 25 Mg Capsule PO 50 mg QHS JESSICA Administration Sodium Chloride 100 mls @ 15 mls/hr 04/26/24 21:37 IV .Q6H40M PRN Saline Flush Sodium Chloride 100 mls @ 15 mls/hr 04/26/24 21:37 IV .Q6H40M PRN Additional IVPB Infusion Levofloxacin 750 mg in 150 mls @ 100 mls/hr 04/29/24 12:20 04/29/24 15:00 Levaquin Iv IV Infused Q48 JESSICA Infusion Sodium Chloride 1,000 mls @ 100 mls/hr 04/30/24 12:20 04/30/24 13:00 IV 05/01/24 08:19 100 mls/hr .Q10H JESSICA Administration Protocol Levothyroxine Sodium 75 mcg 04/27/24 06:00 04/29/24 06:12 Levothyroxine 75 Mcg Tablet PO 75 mcg [id number] JESSICA Administration Levothyroxine Sodium 50 mcg 04/30/24 06:00 04/30/24 06:13 Levothyroxine 50 Mcg Tablet PO 50 mcg [id number]@599 JESSICA Administration Liothyronine Sodium 10 mcg 04/27/24 06:00 04/30/24 06:13 Liothyronine 5 Mcg Tablet PO 10 mcg DAILY@0600 JESSICA Administration Lorazepam 1 mg 04/26/24 21:36 04/30/24 02:55 Lorazepam 1 Mg Tablet PO 1 mg TID PRN PRN Administration Anxiety Melatonin 3 mg 04/26/24 21:36 Melatonin 3 Mg Tablet PO QHS PRN PRN INSOMNIA Methylprednisolone 40 mg 04/26/24 22:00 04/30/24 14:01 Methylprednisolone 40 Mg/Ml Vial IV 40 mg Q8 JESSICA Administration Metoprolol Tartrate 25 mg 04/26/24 22:00 04/30/24 08:23 Metoprolol Tartrate 25 Mg Tablet PO 25 mg Q12 JESSICA Administration Protocol Mirtazapine 15 mg 04/26/24 22:00 04/29/24 21:54 Mirtazapine 15 Mg Tablet PO 15 mg QHS JESSICA Administration Montelukast Sodium 10 mg 04/27/24 21:00 04/29/24 21:55 Montelukast 10 Mg Tablet PO 10 mg QPM JESSICA Administration Ondansetron HCl 4 mg 04/26/24 21:36 04/30/24 11:35 Ondansetron 4 Mg/2 Ml Vial IV 4 mg Q8H PRN PRN Administration NAUSEA/VOMITING Pantoprazole Sodium 40 mg 04/26/24 22:00 04/30/24 08:23 Pantoprazole Sodium 40 Mg Tablet PO 40 mg BID JESSICA Administration Senna/Docusate Sodium 2 tablet 04/26/24 21:36 Senna/Docusate Sodium 1 Tablet PO BID PRN PRN Constipation Sodium Chloride 10 - 40 ml 04/26/24 21:37 04/30/24 14:01 0.9% Saline Lock 10 Ml Syringe IV 10 ml UD PRN Administration SALINE FLUSH Sucralfate 1 gm 04/26/24 22:00 04/30/24 11:35 Sucralfate 1 Gm Tablet PO 1 gm 1HR_ACHS JESSICA Administration Topiramate 50 mg 04/26/24 22:00 04/29/24 21:55 Topiramate 50 Mg Tablet PO 50 mg QHS JESSICA Administration Lab / Micro Data Attestation: I reviewed the patient's lab results. 04/30/24 05:20 04/30/24 05:20 Labs: Laboratory Results - last 24 hr 04/30/24 05:20: WBC 25.1 H, RBC 4.07 L, Hgb 9.5 L, Hct 31.1 L, MCV 76.4 L, MCH 23.3 L, MCHC 30.5 L, RDW Std Deviation 46.4 H, RDW Coeff of Genaro 16.6 H, Plt Count 733 H, MPV 9.4, Immature Gran % (Auto) 0.900, Neut % (Auto) 87.5 H, Lymph % (Auto) 6.1 L, [place] % (Auto) 4.9, Eos % (Auto) 0.1, Baso % (Auto) 0.5, Absolute Neuts (auto) 22.0 H, Absolute Lymphs (auto) 1.54, Nucleated RBC % 0.4, Differential Comment SCANNED, Sodium 128 L, Potassium 4.8, Chloride 88 L, Carbon Dioxide 31.0, Anion Gap 9, BUN 54 H, Creatinine 1.31 H, Estim Creat Clear Calc 29.52, Est GFR (MDRD) Af Amer 52 L, Est GFR (MDRD) Non-Af 43 L, BUN/Creatinine Ratio 41.2 H, Glucose 150 H, Calcium 9.4 Micro: Microbiology 04/29/24 17:48 Sputum, Expectorated/Coughed Gram Stain - Final Rhythm Strip Rhythm Strip: Sinus Tach Rate: 109 Ectopy: None Assessment and Plan . Assessment and plan: IMPRESSIONS: 1. Acute on chronic hypoxemic respiratory failure, suspicion of RSV. Clinically improved near baseline O2 requirements. CTA negative for PE 2. History of obstructive sleep apnea 3. History of hypothyroidism/hypertension/hyperlipidemia/depression/anxiety RECOMMENDATIONS: 1. Continue scheduled bronchodilators and IV steroids. 2. Mobilize patient as tolerated. 3. Start empiric antimicrobials. 4. Continue appropriate DVT prophylaxis. Appropriate for floor transfer, will sign off. Critical Care Time: 50 minutes The entirety of this encounter was done via Telemedicine Physical Exam Const oriented x3 and no apparent distress General Appearance: cooperative HEENT normocephalic Mouth: oral and palatal mucosa normal Neck full ROM Resp normal respiratory effort Subjective Subjective Doing well globally.
[2024-04-30] MEDS: hydrOXYzine PAM 25 MG Capsule 50 MG PO (23:04)
[2024-04-30] MEDS: Mirtazapine 15 MG Tablet PO (23:05)
[2024-04-30] MEDS: Topiramate 50 MG Tablet PO (23:05)
[2024-04-30] MEDS: Atorvastatin Calcium 80 MG Tablet PO (23:07)
[2024-04-30] MEDS: Montelukast 10 MG Tablet PO (23:12)
[2024-05-01] VITALS (16 sets, daily range): BP systolic 102–138; BP diastolic 46–83; PULSE 85–99; RESP 20–24; TEMP 36.2–36.8; O2SAT 88–96; BMI 23.7
--- NOTE | 2024-05-01 00:13 | CPS ---
Patient nauseous at this time, will hold off on PAP therapy until this resolves. On 11L 91%
[2024-05-01] MEDS: Ipratropium/Albuterol Sulfate 3 ML AMPUL.NEB INHALATION ×6 (03:02→22:07)
[2024-05-01] MEDS: Sucralfate 1 GM Tablet PO ×4 (05:42→20:32)
[2024-05-01] MEDS: Levothyroxine 50 MCG Tablet PO (05:42)
[2024-05-01] MEDS: Liothyronine 5 MCG Tablet 10 MCG PO (05:42)
[2024-05-01 06:33] LABS: Absolute Lymphocyte Count 1.04 X10^3/uL (0.83-4.51); Absolute Neutrophil Count 15.1 X10^3/uL (2.0-7.7); Basophil# 0.05 X10^3/uL; Basophil% 0.3 % (0-1); Hematocrit 26.1 % (37-47); Hemoglobin 7.9 g/dL (12.0-15.0); Lymphocyte # 1.04 X10^3/ul (0.83-4.51); Lymphocyte % 6.1 % (19-41); Mean Corp Hgb Conc 30.3 g/dL (32-36); Mean Corpuscular Hgb 23.6 pg (27.0-32.0); Mean Corpuscular Volume 77.9 fL (81-99); Mean Platelet Vol. 9.5 fl (6.2-12.0); Monocyte# 0.84 X10^3/uL; Monocyte% 4.9 % (0-10); NRBC Flagged by Analyzer 0.4 % (0-5); Neutrophil # 15.13 X10^3/uL (2.7-7.7); POSITIVE MORPHOLOGY YES; Platelet Count 600 K/mm3 (150-450); RBC Distribution Width CV 16.6 % (11.6-14.6); RBC Distribution Width SD 47.4 fl (35.1-43.9); Red Blood Count 3.35 M/mm3 (4.2-5.4); White Blood Count 17.2 K/mm3 (4.4-11.0)
[2024-05-01 07:07] LABS: Differential Indicated SCAN CRITERIA MET
[2024-05-01 07:13] LABS: Anion Gap 6 (5-15); BUN 45 mg/dL (7-18); Calcium,Total 8.1 mg/dL (8.5-10.1); Chloride 95 mmol/L (98-107); Creatinine, Serum 0.92 mg/dL (0.55-1.02); EST Glomerular Filtration Rate 65 mL/min (>60); Est Glom Filt Rate - Afr Amer 78 mL/min (>60); Estimated Creatinine Clearance 42.04 ml/min; Glucose 133 mg/dL (74-106); Sodium Level 130 mmol/L (136-145)
[2024-05-01 07:39] LABS: Hypochromasia 1+; Platelet Estimate MOD INC (ADEQ)
--- NOTE | 2024-05-01 08:11 | RAD_ITS ---
EXAM: XR CHEST, 2 VIEWS CLINICAL INDICATION: shortness of breath TECHNIQUE: Frontal and lateral views of the chest. COMPARISON: 04/27/2024. FINDINGS: LUNGS AND PLEURAL SPACES: Bibasilar atelectasis/scarring similar to the previous exam. No pneumothorax. No effusion. HEART: Unremarkable. Cardiac silhouette not enlarged. MEDIASTINUM: Central airways and mediastinal contour are unremarkable. BONES/JOINTS: Multiple healed right-sided rib fractures. SOFT TISSUES: Unremarkable. TUBES, LINES AND DEVICES: Postoperative changes in the thoracolumbar spine with posterior fixation devices. RAD/Chest PA and Lateral IMPRESSION: 1. Postoperative changes in the thoracolumbar spine with posterior fixation devices. 2. Multiple healed right-sided rib fractures. 3. Bibasilar atelectasis/scarring similar to the previous exam. Areas of pneumonia not excluded. Electronically Signed: Antony Victor MD at 8:52 EST ,
[2024-05-01] MEDS: Metoprolol Tartrate 25 MG Tablet PO ×2 (08:52→20:32)
[2024-05-01] MEDS: busPIRone 5 MG Tablet 10 MG PO ×2 (08:52→20:32)
[2024-05-01] MEDS: Amitriptyline 10 MG Tablet PO (08:52)
[2024-05-01] MEDS: DULoxetine Hcl 60 MG Capsule PO ×2 (08:52→20:32)
[2024-05-01] MEDS: Pantoprazole Sodium 40 MG Tablet PO ×2 (08:52→20:33)
[2024-05-01] MEDS: Furosemide 40 MG Tablet PO (08:53)
[2024-05-01] MEDS: Enoxaparin 30 MG/0.3 ML Syringe SC (08:53)
[2024-05-01] MEDS: Clopidogrel Bisulfate 75 MG Tablet PO (08:53)
[2024-05-01] MEDS: Baclofen 10 MG Tablet PO (08:53)
[2024-05-01] MEDS: levoFLOXacin IV 750 MG/150 ML BAG 100 MG IV (08:54)
[2024-05-01] MEDS: guaiFENesin 1,200 MG Tablet 1200 MG PO ×2 (08:59→20:33)
[2024-05-01 09:06] LABS: Hemoglobin 8.2 g/dL (12.0-15.0)
[2024-05-01] MEDS: LORazepam 1 MG Tablet PO ×3 (09:46→20:32)
--- NOTE | 2024-05-01 09:56 | NURSING ---
bi pap paced on pt
[2024-05-01] MEDS: Ondansetron 4 MG/2 ML Vial IV (11:33)
[2024-05-01] MEDS: 0.9% Saline Lock 10 ML Syringe IV (11:34)
--- NOTE | 2024-05-01 12:34 | PN.CC_ITS ---
Objective Data Objective Data Vital Signs: Vital Signs Last response 3 Temperature 36.6 C 05/01/24 09:00 Temperature Source Oral 05/01/24 09:00 Pulse Rate 93 05/01/24 10:35 Pulse Strength Normal (2+) 05/01/24 09:11 Respiratory Rate 22 H 05/01/24 10:35 Respiratory Effort Short of Breath 05/01/24 09:11 Respiratory Depth Normal 05/01/24 09:11 Respiratory Pattern Tachypnea 05/01/24 10:35 Blood Pressure 102/46 L 05/01/24 09:00 Blood Pressure Mean 64 05/01/24 09:00 Blood Pressure Source Monitor 05/01/24 09:00 Blood Pressure Position Semi-Fowlers 05/01/24 09:00 Blood Pressure Location Right Arm 05/01/24 09:00 Pulse Ox 92 05/01/24 10:35 Oxygen Delivery Method High Flow 05/01/24 10:35 Oxygen Flow Rate (L/min) 11 05/01/24 10:35 I&O: I&O Last 24 Hours 3 04/30/24 05/01/24 05/01/24 23:59 11:59 23:59 Intake Total 1300 / 1680 1530 / 1530 Output Total 200 / 1500 750 / 750 Balance 1100 / 180 780 / 780 I&O: Total Stay 3 04/26/24 16:53 thru 05/01/24 10:36 Intake Total 5595 Output Total 6400 Balance -805 Current Meds Ordered / Administered: Current meds ordered / Administered 3 Generic Name Dose Route Start Last Admin Trade Name Freq PRN Reason Stop Dose Admin Acetaminophen 650 mg 04/26/24 21:36 Acetaminophen 325 Mg Tablet PO Q6H PRN PRN Pain 1-10 Or Fever>100.7 Albuterol Sulfate 2.5 mg 04/26/24 21:36 04/28/24 17:10 Albuterol 2.5 Mg/3 Ml Vial.Neb. INHALATION 2.5 mg Q2H PRN PRN Administration SHORTNESS OF BREATH Albuterol/Ipratropium 3 ml 04/26/24 21:36 05/01/24 10:35 Ipratropium/Albuterol Sulfate 3 Ml Ampul.Neb INHALATION 3 ml Q4H.RT JSESICA Administration Amitriptyline HCl 10 mg 04/27/24 10:00 05/01/24 08:52 Amitriptyline 10 Mg Tablet PO 10 mg DAILY JESSICA Administration Atorvastatin Calcium 80 mg 04/26/24 22:00 04/30/24 23:07 Atorvastatin Calcium 80 Mg Tablet PO 80 mg QHS JESSICA Administration Baclofen 10 mg 04/27/24 10:00 05/01/24 08:53 Baclofen 10 Mg Tablet PO 10 mg DAILY JESSICA Administration Buspirone HCl 10 mg 04/26/24 22:00 05/01/24 08:52 Buspirone 5 Mg Tablet PO 10 mg BID JESSICA Administration Cholecalciferol 25 mcg 04/29/24 10:00 04/29/24 08:51 Cholecalciferol (Vit D3) 25 Mcg Tablet (1,000 Units) PO 25 mcg Fr@1000 JESSICA Administration Clopidogrel Bisulfate 75 mg 04/27/24 10:00 05/01/24 08:53 Clopidogrel Bisulfate 75 Mg Tablet PO 75 mg DAILY JESSICA Administration Duloxetine HCl 60 mg 04/26/24 22:00 05/01/24 08:52 Duloxetine Hcl 60 Mg Capsule PO 60 mg BID JESSICA Administration Enoxaparin Sodium 40 mg 05/02/24 10:00 Enoxaparin 40 Mg/0.4 Ml Syringe SC DAILY JESSICA Furosemide 40 mg 04/29/24 10:00 05/01/24 08:53 Furosemide 40 Mg Tablet PO 40 mg DAILY JESSICA Administration Protocol Guaifenesin 1,200 mg 04/26/24 22:00 05/01/24 08:59 Guaifenesin 1,200 Mg Tablet PO 1,200 mg BID JESSICA Administration Hydroxyzine Pamoate 50 mg 04/26/24 22:00 04/30/24 23:04 Hydroxyzine Dominique 25 Mg Capsule PO 50 mg QHS JESSICA Administration Sodium Chloride 100 mls @ 15 mls/hr 04/26/24 21:37 IV .Q6H40M PRN Saline Flush Sodium Chloride 100 mls @ 15 mls/hr 04/26/24 21:37 IV .Q6H40M PRN Additional IVPB Infusion Levofloxacin 750 mg in 150 mls @ 100 mls/hr 04/29/24 12:20 05/01/24 10:36 Levaquin Iv IV Infused Q48 JESSICA Infusion Levothyroxine Sodium 75 mcg 04/27/24 06:00 04/29/24 06:12 Levothyroxine 75 Mcg Tablet PO 75 mcg [id number] JESSICA Administration Levothyroxine Sodium 50 mcg 04/30/24 06:00 05/01/24 05:42 Levothyroxine 50 Mcg Tablet PO 50 mcg SuSa@0600 JESSICA Administration Liothyronine Sodium 10 mcg 04/27/24 06:00 05/01/24 05:42 Liothyronine 5 Mcg Tablet PO 10 mcg DAILY@0600 JESSICA Administration Lorazepam 1 mg 04/26/24 21:36 05/01/24 09:46 Lorazepam 1 Mg Tablet PO 1 mg TID PRN PRN Administration Anxiety Melatonin 3 mg 04/26/24 21:36 Melatonin 3 Mg Tablet PO QHS PRN PRN INSOMNIA Methylprednisolone 40 mg 04/26/24 22:00 05/01/24 05:41 Methylprednisolone 40 Mg/Ml Vial IV 40 mg Q8 JESSICA Administration Metoprolol Tartrate 25 mg 04/26/24 22:00 05/01/24 08:52 Metoprolol Tartrate 25 Mg Tablet PO 25 mg Q12 JESSICA Administration Protocol Mirtazapine 15 mg 04/26/24 22:00 04/30/24 23:05 Mirtazapine 15 Mg Tablet PO 15 mg QHS JESSICA Administration Montelukast Sodium 10 mg 04/27/24 21:00 04/30/24 23:12 Montelukast 10 Mg Tablet PO 10 mg QPM JESSICA Administration Ondansetron HCl 4 mg 04/26/24 21:36 05/01/24 11:33 Ondansetron 4 Mg/2 Ml Vial IV 4 mg Q8H PRN PRN Administration NAUSEA/VOMITING Pantoprazole Sodium 40 mg 04/26/24 22:00 05/01/24 08:52 Pantoprazole Sodium 40 Mg Tablet PO 40 mg BID JESSICA Administration Senna/Docusate Sodium 2 tablet 04/26/24 21:36 Senna/Docusate Sodium 1 Tablet PO BID PRN PRN Constipation Sodium Chloride 10 - 40 ml 04/26/24 21:37 05/01/24 11:34 0.9% Saline Lock 10 Ml Syringe IV 10 ml UD PRN Administration SALINE FLUSH Sucralfate 1 gm 04/26/24 22:00 05/01/24 11:33 Sucralfate 1 Gm Tablet PO 1 gm 1HR_ACHS JESSICA Administration Topiramate 50 mg 04/26/24 22:00 04/30/24 23:05 Topiramate 50 Mg Tablet PO 50 mg QHS JESSICA Administration Lab / Micro Data Attestation: I reviewed the patient's lab results. 05/01/24 08:54 05/01/24 06:11 Labs: Laboratory Results - last 24 hr 05/01/24 06:11: WBC 17.2 H, RBC 3.35 L, Hgb 7.9 L, Hct 26.1 L, MCV 77.9 L, MCH 23.6 L, MCHC 30.3 L, RDW Std Deviation 47.4 H, RDW Coeff of Genaro 16.6 H, Plt Count 600 H, MPV 9.5, Immature Gran % (Auto) 0.700, Neut % (Auto) 88.0 H, Lymph % (Auto) 6.1 L, [place] % (Auto) 4.9, Eos % (Auto) 0.0, Baso % (Auto) 0.3, Absolute Neuts (auto) 15.1 H, Absolute Lymphs (auto) 1.04, Nucleated RBC % 0.4, Platelet Estimate MOD INC, Hypochromasia 1+, Sodium 130 L, Potassium 4.0, Chloride 95 L, Carbon Dioxide 28.0, Anion Gap 6, BUN 45 H, Creatinine 0.92, Estim Creat Clear Calc 42.04, Est GFR (MDRD) Af Amer 78, Est GFR (MDRD) Non-Af 65, BUN/Creatinine Ratio 49.0 H, Glucose 133 H, Calcium 8.1 L 05/01/24 08:54: Hgb 8.2 L Micro: Microbiology 04/29/24 17:48 Sputum, Expectorated/Coughed Gram Stain - Final 04/29/24 17:48 Sputum, Expectorated/Coughed Respiratory Culture - Preliminary Gram negative rinku 05/01/24 09:00 Nasal Secretion SARS-CoV-2 Antigen (Rapid) - Final Rhythm Strip Rhythm Strip: Sinus Tach Rate: 109 Ectopy: None Imaging Radiology Impression Chest X-Ray 05/01/24 08:11 IMPRESSION: 1. Postoperative changes in the thoracolumbar spine with posterior fixation devices. 2. Multiple healed right-sided rib fractures. 3. Bibasilar atelectasis/scarring similar to the previous exam. Areas of pneumonia not excluded. Electronically Signed: Antony Victor MD at 8:52 EST , Assessment and Plan . Assessment and plan: IMPRESSIONS: 1. Acute on chronic hypoxemic respiratory failure, suspicion of RSV. Clinically improved though still with high O2 requirements. CTA negative for PE but with extensive emphysematous and bronchiectasis changes (my review) 2. History of obstructive sleep apnea 3. History of hypothyroidism/hypertension/hyperlipidemia/depression/anxiety RECOMMENDATIONS: 1. Continue scheduled bronchodilators and IV steroids. 2. Mobilize patient as tolerated. 3. Start empiric antimicrobials. 4. Continue appropriate DVT prophylaxis. Critical Care Time: 30 minutes The entirety of this encounter was done via Telemedicine Physical Exam Const alert and oriented x3 General Appearance: ill appearing HEENT Mouth: oral and palatal mucosa normal Teeth and Ging[place]: poor dentition Eyes PERRL Resp Effort and Inspection: uses accessory muscles Auscultation: diminished lung sounds Cardio no murmurs Subjective Subjective Looks OK generally, states she feels better than yesterday, continues with low- level anxiety and able to tolerate simple NCO2 though desaturates easily despite the 10L/min flow.
--- NOTE | 2024-05-01 13:35 | PN_ITS ---
Subjective Subjective Patient seen and examined. She still complain of shortness of breath. She was up to 10 to 11 L today but subsequently brought down to 8 L. She admitted to nausea but denied any vomiting, fever or chills or any other symptoms. Review of systems otherwise negative. WBC 17.2. Objective Data Objective Data Vital Signs: Vital Signs Temp Pulse Resp BP Pulse Ox O2 Del Method O2 Flow Rate 97.5 F L 85 24 H 138/71 H 94 Bi-pap 8 05/01/24 12:47 05/01/24 12:47 05/01/24 12:47 05/01/24 12:47 05/01/24 12:47 05/01/24 12:47 05/01/24 12:47 Oxygen Flow Rate (L/min) 8 Oxygen Delivery Method Bi-pap Weight: 117 lb 8.102 oz Body Mass Index (BMI) 23.7 Intake & Output: Intake and Output for Last 24 Hours 04/29/24 04/30/24 05/01/24 23:59 23:59 23:59 Intake Total 520 / 520 1400 / 1680 1780 / 1780 Output Total 900 / 1500 1200 / 1500 750 / 750 Balance -380 / -980 200 / 180 1030 / 1030 Lab / Micro Data 05/01/24 08:54 05/01/24 06:11 Labs: Laboratory Results - last 24 hr 05/01/24 06:11: WBC 17.2 H, RBC 3.35 L, Hgb 7.9 L, Hct 26.1 L, MCV 77.9 L, MCH 23.6 L, MCHC 30.3 L, RDW Std Deviation 47.4 H, RDW Coeff of Genaro 16.6 H, Plt Count 600 H, MPV 9.5, Immature Gran % (Auto) 0.700, Neut % (Auto) 88.0 H, Lymph % (Auto) 6.1 L, [place] % (Auto) 4.9, Eos % (Auto) 0.0, Baso % (Auto) 0.3, Absolute Neuts (auto) 15.1 H, Absolute Lymphs (auto) 1.04, Nucleated RBC % 0.4, Platelet Estimate MOD INC, Hypochromasia 1+, Sodium 130 L, Potassium 4.0, Chloride 95 L, Carbon Dioxide 28.0, Anion Gap 6, BUN 45 H, Creatinine 0.92, Estim Creat Clear Calc 42.04, Est GFR (MDRD) Af Amer 78, Est GFR (MDRD) Non-Af 65, BUN/Creatinine Ratio 49.0 H, Glucose 133 H, Calcium 8.1 L 05/01/24 08:54: Hgb 8.2 L Micro: Microbiology 04/29/24 17:48 Sputum, Expectorated/Coughed Gram Stain - Final 04/29/24 17:48 Sputum, Expectorated/Coughed Respiratory Culture - Preliminary Gram negative rinku 05/01/24 09:00 Nasal Secretion SARS-CoV-2 Antigen (Rapid) - Final 04/26/24 17:32 Mucosa - Nose SARS-CoV-2, Influenza & RSV (PCR) - Final RSV Radiography Diagnostic Testing: Radiology Impression Chest X-Ray 05/01/24 08:11 IMPRESSION: 1. Postoperative changes in the thoracolumbar spine with posterior fixation devices. 2. Multiple healed right-sided rib fractures. 3. Bibasilar atelectasis/scarring similar to the previous exam. Areas of pneumonia not excluded. Electronically Signed: Antony Victor MD at 8:52 EST , Rhythm Strip Rhythm Strip: Sinus Tach Rate: 109 Ectopy: None Physical Exam Const alert and oriented x3 Constitutional Narrative: looks weak and frail General Appearance: cooperative and comfortable HEENT normocephalic, head/scalp atraumatic, hearing grossly normal bilaterally, nasal mucous membranes and turbinates normal, moist oral mucous membranes and oropharynx normal Eyes PERRL, EOMs intact bilaterally and conjunctivae normal Eyes Narrative: Conjunctiva are slightly pale bilaterally, no scleral icterus Neck full ROM, no lymphadenopathy, supple and no JVD General: trachea midline Lymph Lymphatic: no lymphadenopathy noted and no lymphedema noted Chest inspection of chest normal Resp Resp Narrative: moderately diminished breath sounds bilaterally, bilateral crackles, no wheezing. On 8 L of oxygen by nasal canula Cardio regular rate, regular rhythm, S1 normal heart sound, S2 normal heart sound, no murmurs, no rub, no gallops, no clicks and peripheral pulses 2+ throughout GI normal to inspection, nondistended, normoactive bowel sounds, soft to palpation, non-tender and non-distended Back/Spine normal ROM Extremity normal to inspection, full ROM, normal capillary refill, no clubbing, cyanosis or edema, no calf tenderness and no pedal edema Extremity Narrative: Pedal and radial pulses are 2+ bilaterally General Extremity: no tenderness to palpation of joints or extremities Skin no rashes or lesions noted, skin turgor normal, no jaundice, no petechiae and no mottling General Skin Exam: no breakdown Neuro oriented x3, CN's II-XII intact bilaterally, moves all extremities, no focal motor deficits and no sensory deficits noted Speech: speech normal Motor Exam: strength 5/5 throughout and general weakness Psych thought process normal and cooperative Psych Narrative: Flat affect. Mood & Affect: flat affect Assessment & Plan Assessment/Plan (1) Asthma exacerbation in COPD: (2) Respiratory syncytial virus (RSV): (3) Pneumonia: PLAN: Plan #Acute on chronic hypoxic respiratory failure due to RSV pneumonia and COPD exacerbation * now down to 8L of oxygen. * was up to 10L yesterday * on IV levaquin * On IV solumedrol. Breathing treatment with bronchodilators. * Titrate oxygen to maintain sats >90% * pulmonology on board * aspiration precautions. * on PO lasix * CT chest done showed no evidence of filling defects but showed underlying emphysema with chronic bronchitis and bronchiectasis changes in the right middle lobe with small airway inflammation throughout the lung prasad bilaterally as well as bibasilar atelectasis * breathing treatment with bronchodilators * pulmonology on board * #Hyponatremia: * sodium is 130 today * lasix currently on hold. * #Debility and weakness likely due to RSV infection * PT OT on board. Fall precautions. # Hypothyroidism: On Synthroid and liothyronine #Hypertension: On Eliquis and Lasix. IV Lasix held due to dehydration and hyponatremia. On PO lasix #Hyperlipidemia: On statin #History of TIA: Plavix and statin #Depression and anxiety: On duloxetine, BuSpar and Ativan as needed as well as mirtazapine and topiramate #History of GERD: Stable. Will PPI and sucralfate. #Iron deficiency anemia: * on iron infusion. Hb today was 7.9 and on repeat was 8.2. Was 9.5 yesterday. * Iron panel showed evidence of iron deficiency which is chronic for her. * Iron saturation was only 4.2 * Iron supplementation * follow up with GI on outpatient basis * transfuse if Hb <7 * c she had EGD and December 2023 which showed nonsevere nonerosive esophagitis with no bleeding and mild gastritis with nonbleeding duodenal ulcer with no stigmata of bleeding. * She was due to have a colonoscopy on 01/19/2024 but patient left AMA then * Will benefit from follow-up with GI on outpatient basis for colonoscopy. * DVT prophylaxis: Lovenox Charges/Coding Visit Charges Inpatient E&M: 20975 Subs Hosp L2
[2024-05-01] MEDS: Acetaminophen 325 MG Tablet 650 MG PO (16:44)
[2024-05-01] MEDS: MELATONIN 3 MG TABLET PO (20:31)
[2024-05-01] MEDS: Topiramate 50 MG Tablet PO (20:32)
[2024-05-01] MEDS: hydrOXYzine PAM 25 MG Capsule 50 MG PO (20:32)
[2024-05-01] MEDS: Atorvastatin Calcium 80 MG Tablet PO (20:32)
[2024-05-01] MEDS: Mirtazapine 15 MG Tablet PO (20:32)
[2024-05-01] MEDS: Montelukast 10 MG Tablet PO (20:33)
[2024-05-01] MEDS: RisperiDONE 1 MG Tablet PO (23:57)
[2024-05-02] VITALS (19 sets, daily range): BP systolic 113–129; BP diastolic 64–74; PULSE 76–101; RESP 12–29; TEMP 36.3–36.6; O2SAT 86–98; BMI 23.1
[2024-05-02] MEDS: Ipratropium/Albuterol Sulfate 3 ML AMPUL.NEB INHALATION ×5 (02:19→23:00)
--- NOTE | 2024-05-02 02:34 | NURSING ---
alerted Dr Almendarez of increasing O2 demand and increased WOB. respiratory at bedside and switching pt to our hospital bipap. stated that pt is currently maxed on our bipap. alerted MD of pts code status [id number]. This RN will call family.
--- NOTE | 2024-05-02 02:37 | NURSING ---
This RN attempted to call Den. no answer and no voicemailbox. This RN called next of kin, son, Kamron. notified of change of status and increasing oxygen demands. all questions answered. offered for family to come in to bedside for pt. family expressed appreciation.
--- NOTE | 2024-05-02 02:50 | CPS ---
Patient initially on sleep lab PAP machine. Oxygen demands have slowly increased throughout the night. RT has increased both fio2 and PAP pressures on sleep lab machine due to spo2 dropping to the 70's numerous times. Patient eventually switched to V60 on AVAPS settings at 100%, spo2 recovered to 93%
--- NOTE | 2024-05-02 03:12 | PCM.HOSP.N ---
Hospitalist Note I was called because her oxygen requirements had been trending up. She was getting more anxious and agitated. We did give her a little bit of medication to calm her down and she was more quiet compliant with her BiPAP. Family has been called and notified that her condition is deteriorating. Per her wishes on admission she is a DNR CCA with no intubation.
--- NOTE | 2024-05-02 05:17 | NURSING ---
son at bedside
[2024-05-02 06:05] LABS: Absolute Lymphocyte Count 1.19 X10^3/uL (0.83-4.51); Basophil# 0.07 X10^3/uL; Basophil% 0.3 % (0-1); Eosinophil# 0.03 X10^3/uL; Eosinophils% 0.1 % (0-5); Hematocrit 24.7 % (37-47); Hemoglobin 7.5 g/dL (12.0-15.0); Lymphocyte # 1.19 X10^3/ul (0.83-4.51); Lymphocyte % 5.8 % (19-41); Mean Corp Hgb Conc 30.4 g/dL (32-36); Mean Corpuscular Hgb 23.7 pg (27.0-32.0); Mean Corpuscular Volume 78.2 fL (81-99); Mean Platelet Vol. 9.2 fl (6.2-12.0); Monocyte# 0.92 X10^3/uL; Monocyte% 4.5 % (0-10); NRBC Flagged by Analyzer 0.6 % (0-5); Neutrophil # 17.97 X10^3/uL (2.7-7.7); Neutrophil % 88.3 % (47-70); Platelet Count 571 K/mm3 (150-450); RBC Distribution Width CV 16.3 % (11.6-14.6); Red Blood Count 3.16 M/mm3 (4.2-5.4); White Blood Count 20.4 K/mm3 (4.4-11.0)
[2024-05-02 06:37] LABS: Anion Gap 6 (5-15); BUN 41 mg/dL (7-18); BUN/Creat Ratio 43.7 RATIO (10-20); Calcium,Total 7.4 mg/dL (8.5-10.1); Chloride 95 mmol/L (98-107); Creatinine, Serum 0.94 mg/dL (0.55-1.02); EST Glomerular Filtration Rate 63 mL/min (>60); Est Glom Filt Rate - Afr Amer 76 mL/min (>60); Estimated Creatinine Clearance 41.14 ml/min; Glucose 104 mg/dL (74-106); Potassium 3.6 mmol/L (3.5-5.1); Sodium Level 131 mmol/L (136-145)
--- NOTE | 2024-05-02 07:05 | NURSING ---
at bedside this AM. update given on pts status and education provided about poc that was performed overnight. pts encouraged to ask questions and to stay until the MDs round this AM. all questions answered at this time. pt remains on biapap at 80% at this time.
[2024-05-02 10:07] LABS: Allen Test Positive; Base Excess 7 mmol/L (-2 to +2); Bicarbonate 32.7 mmol/L (22-26); Blood Gas Specimen Type ART; Mode BiLevel; O2 Delivery Device BiPAP; PEEP 12; PO2 187 mmHG (75-100); RR 12; SITE R Radial; SO2 100 % (95-99); Total Carbon Dioxide 35 mmol/L; pCO2 60.6 mmHg (35-45); pH 7.34 (7.35-7.45)
--- NOTE | 2024-05-02 12:56 | PCM.PN.INT ---
Assessment & Plan Assessment/Plan (1) Acute exacerbation of chronic obstructive pulmonary disease (COPD): PLAN: Plan RECOMMENDATIONS: 1. Continue scheduled bronchodilators and IV steroids. 2. Given sputum culture results and multiple antimicrobial allergies, will consult infectious diseases for assistance. 3. Encourage incentive spirometer use and mobilize patient as tolerated. 4. Continue appropriate DVT prophylaxis. 5. Wean from BiPAP therapy as tolerated. IMPRESSIONS: 1. Acute on chronic hypoxemic respiratory failure Clinical suspicion for COPD exacerbation related to RSV infection, with likely superimposed gram-negative pneumonia. The patient was initially initiated on Levaquin on April 29. Sputum culture was subsequently positive for 3+ Achromobacter, which was resistant to Levaquin. Given her multiple documented allergies, will obtain ID consultation for assistance with antimicrobial management. In the interim, will initiate meropenem empirically. CTA chest has ruled out pulmonary embolism. Wean from BiPAP therapy as tolerated. The patient does have a baseline supplemental oxygen requirement of 4 L/min. Continue scheduled bronchodilators and steroids for now. 2. History of obstructive sleep apnea Continue nocturnal PAP therapy per home regimen. 3. History of hypothyroidism/hypertension/hyperlipidemia/depression/anxiety Complicates care, management, recovery and prognosis. Continue home medications as indicated. This note was generated with [employer] dictation software. It may contain incorrect words, spelling, and punctuation that were not noted in checking the note before signing. Subjective Subjective The patient was seen and examined at the bedside this morning. Events from the last 24 hours have been reviewed. The patient is currently afebrile, hemodynamically stable and maintaining appropriate oxygen saturations on BiPAP with an FiO2 requirement of 50%. White blood cell count is elevated at 20,000. Hemoglobin is low at 7.5 g/dL. Arterial blood gas was notable for a pH of 7.34 with a pCO2 of 60 and pO2 187. On Thursday, I started the patient empirically on antimicrobials. Over the weekend, the patient sputum culture was positive for Achromobacter, which was resistant to Levaquin. Nevertheless, the patient's antimicrobials were never changed over the weekend. Her respiratory status has subsequently declined. Objective Data Objective Data The patient's most recent lab work, culture data and imaging studies have all been personally reviewed. RSV PCR was positive on April 26. Preliminary sputum culture from April 29 is demonstrating growth of 3+ Achromobacter. Vital Signs: Vital Signs Temp Pulse Resp BP Pulse Ox O2 Del Method O2 Flow Rate 97.3 F L 88 22 H 124/71 H 96 Bi-pap 15 05/02/24 09:36 05/02/24 12:42 05/02/24 12:42 05/02/24 09:36 05/02/24 12:42 05/02/24 09:36 05/02/24 02:15 FiO2 50 05/02/24 12:42 Oxygen Flow Rate (L/min) 15 Oxygen Delivery Method Bi-pap Weight: 114 lb 10.246 oz Body Mass Index (BMI) 23.1 Intake & Output: Intake and Output for Last 24 Hours 04/30/24 05/01/24 05/02/24 23:59 23:59 23:59 Intake Total 1400 / 1680 1979 Output Total 1200 / 1500 950 / 950 Balance 200 / 180 1030 / 1030 Lab / Micro Data Attestation: I reviewed the patient's lab results. 05/02/24 05:53 05/02/24 05:53 Labs: Laboratory Results - last 24 hr 05/02/24 05:53: WBC 20.4 H, RBC 3.16 L, Hgb 7.5 L, Hct 24.7 L, MCV 78.2 L, MCH 23.7 L, MCHC 30.4 L, RDW Std Deviation 47.0 H, RDW Coeff of Genaro 16.3 H, Plt Count 571 H, MPV 9.2, Immature Gran % (Auto) 1.000 H, Neut % (Auto) 88.3 H, Lymph % (Auto) 5.8 L, [place] % (Auto) 4.5, Eos % (Auto) 0.1, Baso % (Auto) 0.3, Absolute Neuts (auto) 18.0 H, Absolute Lymphs (auto) 1.19, Nucleated RBC % 0.6, Sodium 131 L, Potassium 3.6, Chloride 95 L, Carbon Dioxide 30.0, Anion Gap 6, BUN 41 H, Creatinine 0.94, Estim Creat Clear Calc 41.14, Est GFR (MDRD) Af Amer 76, Est GFR (MDRD) Non-Af 63, BUN/Creatinine Ratio 43.7 H, Glucose 104, Calcium 7.4 L Micro: Microbiology 04/29/24 17:48 Sputum, Expectorated/Coughed Gram Stain - Final 04/29/24 17:48 Sputum, Expectorated/Coughed Respiratory Culture - Preliminary Achromobacter denitrificans 05/01/24 09:00 Nasal Secretion SARS-CoV-2 Antigen (Rapid) - Final 04/26/24 17:32 Mucosa - Nose SARS-CoV-2, Influenza & RSV (PCR) - Final RSV ABG Data ABG results: ABG 05/02/24 10:03 Specimen Type ART Sample Site R Radial pH 7.34 L Bicarbonate Actual 32.7 H Total CO2 35 Base Excess 7 H O2 Saturation 100 H O2 % 80.0 ABG pCO2 60.6 H ABG pO2 187 H Luke Test Positive Respiration Rate 12 O2 Delivery Device BiPAP Vent Mode BiLevel Tidal Volume 450.0 POC PEEP 12 Rhythm Strip Rhythm Strip: Sinus Tach Rate: 109 Ectopy: None Physical Exam Const alert, oriented x3 and no apparent distress General Appearance: cooperative HEENT normocephalic and head/scalp atraumatic Teeth and Gingiva: poor dentition Eyes EOMs intact bilaterally, conjunctivae normal and no scleral icterus Neck supple General: trachea midline Chest inspection of chest normal Resp Resp Narrative: BiPAP currently in place. Effort and Inspection: tachypneic Auscultation: rales right and diminished lung sounds Cardio regular rate and regular rhythm GI normal to inspection, nondistended, normoactive bowel sounds Extremity no clubbing, cyanosis or edema Skin no rashes or lesions noted Neuro CN's II-XII intact bilaterally, moves all extremities and no focal motor deficits Psych Mood & Affect: flat affect Charges/Coding Visit Charges Inpatient E&M: 50206 Subs Hosp L2
[2024-05-02] MEDS: Meropenem 1 GM in 0.9% Normal Saline (100mL MB+) 100 ML IV ×2 (14:04→21:23)
[2024-05-02] MEDS: Enoxaparin 40 MG/0.4 ML Syringe SC (14:04)
[2024-05-02] MEDS: 0.9% Normal Saline (100mL Bag) 100 ML 15 ML IV (14:05)
--- NOTE | 2024-05-02 14:11 | PN_ITS ---
Subjective Subjective Patient seen and examined. Her is by her bedside. She complained of feeling more short of breath overnight and had to be transition to BiPAP. She is now on BiPAP at FiO2 of 80%. She does admit to feeling weak and lethargic. She also feels her breathing is not improving. She denies any cough chest pain, palpitations, dizziness, nausea vomiting or any other such symptoms. Objective Data Objective Data Vital Signs: Vital Signs Temp Pulse Resp BP Pulse Ox O2 Del Method O2 Flow Rate 97.3 F L 88 22 H 124/71 H 96 Bi-pap 15 05/02/24 09:36 05/02/24 12:42 05/02/24 12:42 05/02/24 09:36 05/02/24 12:42 05/02/24 09:36 05/02/24 02:15 FiO2 50 05/02/24 12:42 Oxygen Flow Rate (L/min) 15 Oxygen Delivery Method Bi-pap Weight: 114 lb 10.246 oz Body Mass Index (BMI) 23.1 Intake & Output: Intake and Output for Last 24 Hours 04/30/24 05/01/24 05/02/24 23:59 23:59 23:59 Intake Total 1400 / 1680 1979 / 1979 0 / 0 Output Total 1200 / 1500 950 / 950 Balance 200 / 180 1030 / 1030 0 / 0 Lab / Micro Data 05/02/24 05:53 05/02/24 05:53 Labs: Laboratory Results - last 24 hr 05/02/24 05:53: WBC 20.4 H, RBC 3.16 L, Hgb 7.5 L, Hct 24.7 L, MCV 78.2 L, MCH 23.7 L, MCHC 30.4 L, RDW Std Deviation 47.0 H, RDW Coeff of Genaro 16.3 H, Plt Count 571 H, MPV 9.2, Immature Gran % (Auto) 1.000 H, Neut % (Auto) 88.3 H, L ymph % (Auto) 5.8 L, [place] % (Auto) 4.5, Eos % (Auto) 0.1, Baso % (Auto) 0.3, A bsolute Neuts (auto) 18.0 H, Absolute Lymphs (auto) 1.19, Nucleated RBC % 0.6, S odium 131 L, Potassium 3.6, Chloride 95 L, Carbon Dioxide 30.0, Anion Gap 6, BUN 41 H, Creatinine 0.94, Estim Creat Clear Calc 41.14, Est GFR (MDRD) Af Amer 76, Est GFR (MDRD) Non-Af 63, BUN/Creatinine Ratio 43.7 H, Glucose 104, Calcium 7.4 L Micro: Microbiology 04/29/24 17:48 Sputum, Expectorated/Coughed Gram Stain - Final 04/29/24 17:48 Sputum, Expectorated/Coughed Respiratory Culture - Preliminary Achromobacter denitrificans 05/01/24 09:00 Nasal Secretion SARS-CoV-2 Antigen (Rapid) - Final 04/26/24 17:32 Mucosa - Nose SARS-CoV-2, Influenza & RSV (PCR) - Final RSV ABG Data ABG results: ABG 05/02/24 10:03 Specimen Type ART Sample Site R Radial pH 7.34 L Bicarbonate Actual 32.7 H Total CO2 35 Base Excess 7 H O2 Saturation 100 H O2 % 80.0 ABG pCO2 60.6 H ABG pO2 187 H Luke Test Positive Respiration Rate 12 O2 Delivery Device BiPAP Vent Mode BiLevel Tidal Volume 450.0 POC PEEP 12 Rhythm Strip Rhythm Strip: Sinus Tach Rate: 109 Ectopy: None Physical Exam Const alert and oriented x3 Constitutional Narrative: looks weak and frail, on BIPAP General Appearance: cooperative and comfortable HEENT normocephalic, head/scalp atraumatic, hearing grossly normal bilaterally, nasal mucous membranes and turbinates normal, moist oral mucous membranes and oropharynx normal Eyes PERRL, EOMs intact bilaterally and conjunctivae normal Eyes Narrative: Conjunctiva are slightly pale bilaterally Neck full ROM, no lymphadenopathy, supple and no JVD General: trachea midline Lymph Lymphatic: no lymphadenopathy noted and no lymphedema noted Chest inspection of chest normal Resp Resp Narrative: moderately diminished breath sounds bilaterally, bilateral crackles, no wheezing. On BIPAP, with FiO2 of 80% Auscultation: wheezes and diminished lung sounds Cardio regular rate, regular rhythm, S1 normal heart sound, S2 normal heart sound, no murmurs, no rub, no gallops, no clicks and peripheral pulses 2+ throughout GI normal to inspection, nondistended, normoactive bowel sounds, soft to palpation, non-tender and non-distended Back/Spine normal ROM Extremity normal to inspection, full ROM, normal capillary refill, no clubbing, cyanosis or edema, no calf tenderness and no pedal edema Extremity Narrative: Pedal and radial pulses are 2+ bilaterally General Extremity: no tenderness to palpation of joints or extremities Skin no rashes or lesions noted, skin turgor normal, no jaundice, no petechiae and no mottling General Skin Exam: no breakdown Neuro oriented x3, CN's II-XII intact bilaterally, moves all extremities, no focal motor deficits and no sensory deficits noted Speech: speech normal Motor Exam: strength 5/5 throughout and general weakness Psych thought process normal and cooperative Psych Narrative: Flat affect. Appearance: appropriate Assessment & Plan Assessment/Plan (1) Asthma exacerbation in COPD: (2) Respiratory syncytial virus (RSV): (3) Pneumonia: PLAN: Plan #Acute on chronic hypoxic respiratory failure due to RSV pneumonia and COPD exacerbation * shortness of breath worsened overnight and she required BIPAP * she remains on BIPAP and is on 80% FiO2. * still on IV solumedrol and IV levaquin * on PO lasix. * pulmonology on board * aspiration precautions * sputum culture growing Achromobacter denitrificans, sensitive to Zosyn and Bactrim * Patient however allergic to penicillins. * ID consulted; await recs. * CT chest done showed no evidence of filling defects but showed underlying emphysema with chronic bronchitis and bronchiectasis changes in the right middle lobe with small airway inflammation throughout the lung prasad bilaterally as well as bibasilar atelectasis * breathing treatment with bronchodilators * pulmonology on board * #Hyponatremia: * sodium is 131 today * lasix currently on hold. * will continue to monitor * #Debility and weakness likely due to RSV infection * PT OT on board. Fall precautions. # Hypothyroidism: On Synthroid and liothyronine #Hypertension: On Eliquis and Lasix. IV Lasix held due to dehydration and hyponatremia. On PO lasix #Hyperlipidemia: On statin #History of TIA: Plavix and statin #Depression and anxiety: On duloxetine, BuSpar and Ativan as needed as well as mirtazapine and topiramate #History of GERD: Stable. Will PPI and sucralfate. #Iron deficiency anemia: * on iron infusion.hb today is 7.5. Was 8.2 yesterday * Iron panel showed evidence of iron deficiency which is chronic for her. * Iron saturation was only 4.2 * Iron supplementation * follow up with GI on outpatient basis * transfuse if Hb <7 * c she had EGD and December 2023 which showed nonsevere nonerosive esophagitis with no bleeding and mild gastritis with nonbleeding duodenal ulcer with no stigmata of bleeding. * She was due to have a colonoscopy on 01/19/2024 but patient left AMA then * Will benefit from follow-up with GI on outpatient basis for colonoscopy. * DVT prophylaxis: Lovenox Charges/Coding Visit Charges Inpatient E&M: 74889 Subs Hosp L3
--- NOTE | 2024-05-02 14:40 | CON.PCM.ID_ITS ---
Assessment & Plan Assessment/Plan (1) Asthma exacerbation in COPD: (2) Respiratory syncytial virus (RSV): (3) Pneumonia: PLAN: Sputum cx with achromobacter. Levaquin changed to meropenem, will continue. Will follow, thank you HPI Consult Data Date of Consult: 05/02/24 HPI Narrative Reason for Consultation: pneumonia HPI Narrative: TAJ BLANK, is a 68 F with h/o COPD, on home O2, admitted 04/26 with several days cough, aches, malaise, dyspnea. Called EMS, admitted on steroids, RSV was (+). Did not improve much, started on levaquin, now sputum cx with achromobacter, levaquin changed to meropenem. Feeling a little better today. No fever. at bedside provided additional history. Full ROS performed and neg except as noted above. [facility] Medical History Acute exacerbation of chronic obstructive pulmonary disease (COPD) PTSD (post-traumatic stress disorder) Hyperthyroidism GI bleed Former smoker CPAP (continuous positive airway pressure) dependence On home oxygen therapy Myocardial infarct Congestive heart failure (CHF) Migraines Fall Contusion of nose Periorbital contusion of right eye Contusion of multiple fingers Chronic hypoxic respiratory failure Contusion of scalp Normocytic anemia Fibromyalgia Chronic respiratory failure with hypoxia RAUL (obstructive sleep apnea) Incisional hernia TIA (transient ischemic attack) Osteoporosis Osteoarthritis Thyroid disorder Diverticulitis History of heart attack Sleep apnea History of pneumonia COPD (chronic obstructive pulmonary disease) History of bronchitis Asthma HTN (hypertension) Depression Anxiety Nausea and vomiting GERD (gastroesophageal reflux disease) Heart disease spinal stimulator Spinal stenosis Chronic back pain Hypothyroidism Home Medications ?Medication ?Instructions ?Recorded ?Last Taken ?Type atorvastatin 80 mg tablet 80 mg PO QHS cholesterol 06/01/13 05/25/14 History 80 MG clopidogrel 75 mg tablet 75 mg PO DAILY anti platelet 06/01/13 11/18/23 History lorazepam 1 mg tablet (Ativan) 1 mg PO TID PRN Anxiety 11/17/18 Unknown History duloxetine 60 mg capsule,delayed 60 mg PO BID DEPRESSION 06/19/20 Unknown History release furosemide 40 mg tablet 40 mg PO DAILY water pill 08/23/22 Unknown History liothyronine 5 mcg tablet 10 mcg PO DAILY HYPOTHYROIDISM 08/23/22 Unknown History pantoprazole 40 mg tablet,delayed 40 mg PO BID ACID REFLEX 30 days 05/06/23 Unknown Rx release #60 tabs baclofen 10 mg tablet 10 mg PO DAILY SPASMS 10/09/23 Unknown History cholecalciferol (vitamin D3) 25 25 mcg PO .WEEKLY SUPPLEMENT 10/09/23 Unknown History mcg (1,000 unit) capsule metoprolol tartrate 25 mg tablet 25 mg PO Q12H blood pressure 10/09/23 Unknown History acetaminophen 500 mg tablet 500 mg PO Q6H PRN pain 11/05/23 Unknown History tiotropium bromide 2.5 2 inh inhalation DAILY LUNGS #3 ea 02/02/24 Unknown Rx mcg/actuation mist for inhalation (Spiriva Respimat) buspirone 10 mg tablet 10 mg PO BID ANXIETY 02/09/24 Unknown History diclofenac sodium 75 mg 75 mg PO BID see phyisican 02/09/24 Unknown History tablet,delayed release sucralfate 100 mg/mL oral 10 ml PO ACHS FOR STOMACH 02/09/24 Unknown History suspension topiramate 50 mg tablet 50 mg PO QHS SLEEP 02/09/24 Unknown History montelukast 10 mg tablet 10 mg PO QPM SEE PCP #90 tabs 02/15/24 Unknown Rx mirtazapine 15 mg tablet 15 mg PO QHS sleep #30 tabs 03/01/24 Unknown Rx albuterol sulfate 90 mcg/actuation 2 puff inhalation Q4H PRN COPD 03/11/24 Unknown History aerosol inhaler amitriptyline 10 mg tablet 10 mg PO DAILY nerve pain 03/11/24 Unknown History cyclobenzaprine 5 mg tablet 5 mg PO Q8H PRN muscle spasms 03/11/24 Unknown History furosemide 20 mg tablet 20 mg PO DAILY water pill 03/11/24 Unknown History hydroxyzine HCl 50 mg tablet 50 mg PO QHS 03/11/24 Unknown History ipratropium 0.5 mg-albuterol 3 mg 3 ml inhalation .Q4-6H PRN 03/11/24 Unknown History (2.5 mg base)/3 mL nebulization shortness of breath or wheezing soln levothyroxine 50 mcg tablet 50 mcg PO SUSA thyroid 03/11/24 Unknown History levothyroxine 75 mcg tablet 75 mcg PO MOTUWETHFR THYROID 03/11/24 Unknown History levofloxacin 750 mg tablet 750 mg PO DAILY PROPHYLAXIS #7 tabs 03/31/24 Unknown Rx mometasone-formoterol HFA 200 2 puff inhalation BID COPD 04/26/24 Unknown History mcg-5 mcg/actuation aerosol inhaler (Dulera) temazepam 30 mg capsule 30 mg PO QHS PRN PRN sleep 04/26/24 Unknown History Allergy/AdvReac Type Severity Reaction Status Date / Time cefaclor (From Ceclor) Allergy Itching Verified 04/26/24 16:54 clarithromycin Allergy Hives Verified 04/26/24 16:54 doxycycline Allergy Itching Verified 04/26/24 16:54 Penicillins Allergy Hives Verified 04/26/24 16:54 Sulfa (Sulfonamide Allergy Hives Verified 04/26/24 16:54 Antibiotics) biotin AdvReac Unknown Unknown Verified 04/26/24 16:54 [email or web address] (From Ambien) AdvReac Unknown mental Verified 04/26/24 16:54 issues Family History Father Asthma Heart disease Grandmother Breast cancer Diabetes Mother Heart disease COPD (chronic obstructive pulmonary disease) Other Cancer Surgical History Hx of BKA History of appendectomy History of incisional hernia repair History of incisional hernia repair (~12/20/18) Hx of cholecystectomy History of esophagogastroduodenoscopy (EGD) (~07/2018) Previous back surgery S/P hysterectomy S/P carpal tunnel release S/P knee surgery S/P correction of deviated nasal septum Status post thyroidectomy H/O heart artery stent Status post amputation of right foot Social History household members: spouse Smoking Status: Former smoker Tobacco: How many years used: 25 second hand exposure: Yes alcohol intake: never substance use type: does not use caffeine: Yes what type of physical activity do you participate in: none frequency: does not exercise Physical Exam Const alert and no apparent distress General Appearance: cooperative HEENT normocephalic and head/scalp atraumatic Eyes PERRL and EOMs intact bilaterally Lymph Lymphatic: no lymphadenopathy noted Resp Auscultation: diminished lung sounds Cardio regular rate and regular rhythm GI soft to palpation, non-tender and non-distended Extremity General Extremity: Negative for edema Skin no rashes or lesions noted Neuro CN's II-XII intact bilaterally Lab / Micro Data Attestation: I reviewed the patient's lab results. 05/02/24 05:53 05/02/24 05:53 Labs: Laboratory Results - last 24 hr 05/02/24 05:53: WBC 20.4 H, RBC 3.16 L, Hgb 7.5 L, Hct 24.7 L, MCV 78.2 L, MCH 23.7 L, MCHC 30.4 L, RDW Std Deviation 47.0 H, RDW Coeff of [place] 16.3 H, Plt Count 571 H, MPV 9.2, Immature Gran % (Auto) 1.000 H, Neut % (Auto) 88.3 H, L ymph % (Auto) 5.8 L, [place] % (Auto) 4.5, Eos % (Auto) 0.1, Baso % (Auto) 0.3, A bsolute Neuts (auto) 18.0 H, Absolute Lymphs (auto) 1.19, Nucleated RBC % 0.6, S odium 131 L, Potassium 3.6, Chloride 95 L, Carbon Dioxide 30.0, Anion Gap 6, BUN 41 H, Creatinine 0.94, Estim Creat Clear Calc 41.14, Est GFR (MDRD) Af Amer 76, Est GFR (MDRD) Non-Af 63, BUN/Creatinine Ratio 43.7 H, Glucose 104, Calcium 7.4 L Micro: Microbiology 04/29/24 17:48 Sputum, Expectorated/Coughed Gram Stain - Final 04/29/24 17:48 Sputum, Expectorated/Coughed Respiratory Culture - Preliminary Achromobacter denitrificans ABG Data ABG results: ABG 05/02/24 10:03 Specimen Type ART Sample Site R Radial pH 7.34 L Bicarbonate Actual 32.7 H Total CO2 35 Base Excess 7 H O2 Saturation 100 H O2 % 80.0 ABG pCO2 60.6 H ABG pO2 187 H Luke Test Positive Respiration Rate 12 O2 Delivery Device BiPAP Vent Mode BiLevel Tidal Volume 450.0 POC PEEP 12 Rhythm Strip Rhythm Strip: Sinus Tach Rate: 109 Ectopy: None
[2024-05-02] MEDS: 0.9% Saline Lock 10 ML Syringe IV (21:23)
[2024-05-02] MEDS: Mirtazapine 15 MG Tablet PO (21:23)
[2024-05-02] MEDS: busPIRone 5 MG Tablet 10 MG PO (21:23)
[2024-05-02] MEDS: Pantoprazole Sodium 40 MG Tablet PO (21:24)
[2024-05-02] MEDS: Montelukast 10 MG Tablet PO (21:24)
[2024-05-02] MEDS: Atorvastatin Calcium 80 MG Tablet PO (21:24)
[2024-05-02] MEDS: RisperiDONE 1 MG Tablet PO (21:24)
[2024-05-02] MEDS: Metoprolol Tartrate 25 MG Tablet PO (21:24)
[2024-05-02] MEDS: Sucralfate 1 GM Tablet PO (21:24)
[2024-05-02] MEDS: Topiramate 50 MG Tablet PO (21:24)
[2024-05-02] MEDS: guaiFENesin 1,200 MG Tablet 1200 MG PO (21:25)
[2024-05-02] MEDS: hydrOXYzine PAM 25 MG Capsule 50 MG PO (21:25)
[2024-05-02] MEDS: DULoxetine Hcl 60 MG Capsule PO (21:25)
[2024-05-02] MEDS: LORazepam 1 MG Tablet PO (21:25)
[2024-05-03] VITALS (26 sets, daily range): BP systolic 101–136; BP diastolic 52–71; PULSE 88–102; RESP 12–30; TEMP 36.3–37.1; O2SAT 87–95
[2024-05-03] MEDS: 0.9% Normal Saline (100mL Bag) 100 ML 15 ML IV ×2 (02:36→10:03)
[2024-05-03] MEDS: Ipratropium/Albuterol Sulfate 3 ML AMPUL.NEB INHALATION ×6 (03:30→23:06)
[2024-05-03 06:15] LABS: Absolute Lymphocyte Count 0.88 X10^3/uL (0.83-4.51); Absolute Neutrophil Count 14.6 X10^3/uL (2.0-7.7); Basophil# 0.04 X10^3/uL; Basophil% 0.2 % (0-1); Eosinophil# 0.02 X10^3/uL; Eosinophils% 0.1 % (0-5); Hematocrit 22.8 % (37-47); Hemoglobin 6.8 g/dL (12.0-15.0); Lymphocyte # 0.88 X10^3/ul (0.83-4.51); Lymphocyte % 5.3 % (19-41); Mean Corp Hgb Conc 29.8 g/dL (32-36); Mean Corpuscular Hgb 23.4 pg (27.0-32.0); Mean Corpuscular Volume 78.4 fL (81-99); Mean Platelet Vol. 9.3 fl (6.2-12.0); Monocyte# 0.97 X10^3/uL; Monocyte% 5.8 % (0-10); NRBC Flagged by Analyzer 0.7 % (0-5); Neutrophil # 14.56 X10^3/uL (2.7-7.7); Neutrophil % 87.7 % (47-70); POSITIVE MORPHOLOGY YES; Platelet Count 512 K/mm3 (150-450); RBC Distribution Width CV 16.5 % (11.6-14.6); RBC Distribution Width SD 47.4 fl (35.1-43.9); Red Blood Count 2.91 M/mm3 (4.2-5.4); White Blood Count 16.6 K/mm3 (4.4-11.0)
[2024-05-03 06:27] LABS: Differential Indicated SCAN CRITERIA MET
[2024-05-03 06:33] LABS: Anion Gap 6 (5-15); BUN 30 mg/dL (7-18); BUN/Creat Ratio 46.3 RATIO (10-20); Calcium,Total 7.4 mg/dL (8.5-10.1); Chloride 95 mmol/L (98-107); Creatinine, Serum 0.65 mg/dL (0.55-1.02); EST Glomerular Filtration Rate 96 mL/min (>60); Est Glom Filt Rate - Afr Amer 117 mL/min (>60); Estimated Creatinine Clearance 48.34 ml/min; Glucose 91 mg/dL (74-106); Potassium 3.4 mmol/L (3.5-5.1); Sodium Level 131 mmol/L (136-145)
[2024-05-03] MEDS: Liothyronine 5 MCG Tablet 10 MCG PO (06:54)
[2024-05-03] MEDS: Ondansetron 4 MG/2 ML Vial IV (06:54)
[2024-05-03] MEDS: Sucralfate 1 GM Tablet PO ×3 (06:54→22:37)
[2024-05-03] MEDS: Levothyroxine 75 MCG Tablet PO (06:54)
[2024-05-03 07:48] LABS: Hypochromasia 1+; Platelet Estimate MOD INC (ADEQ)
[2024-05-03 07:52] LABS: Hematocrit 22.7 % (37-47); Hemoglobin 6.9 g/dL (12.0-15.0)
--- NOTE | 2024-05-03 09:32 | PCM.PN.INT ---
Assessment & Plan Assessment/Plan (1) Acute exacerbation of chronic obstructive pulmonary disease (COPD): PLAN: Plan RECOMMENDATIONS: 1. Continue scheduled bronchodilators and steroids. 2. Continue antimicrobials with ID assistance. 3. Encourage incentive spirometer use and mobilize patient as tolerated. 4. Continue appropriate DVT prophylaxis. 5. Wean from BiPAP therapy as tolerated. 6. Transfuse 1 unit of packed red blood cells. Check H&H posttransfusion. 7. Continue PPI therapy. Gastroenterology consultation is pending. IMPRESSIONS: 1. Acute on chronic hypoxemic respiratory failure Clinical suspicion for COPD exacerbation related to RSV infection, with likely superimposed gram-negative pneumonia. The patient was initially initiated on Levaquin on April 29. Sputum culture was subsequently positive for 3+ Achromobacter, which was resistant to Levaquin. Given her multiple documented allergies, ID consultation was obtained. In the interim, we will plan to continue meropenem. CTA chest has ruled out pulmonary embolism. Wean from BiPAP therapy as tolerated. The patient does have a baseline supplemental oxygen requirement of 4 L/min. Continue scheduled bronchodilators and steroids for now. 2. History of obstructive sleep apnea Continue nocturnal PAP therapy per home regimen. 3. History of hypothyroidism/hypertension/hyperlipidemia/depression/anxiety/anemia Complicates care, management, recovery and prognosis. Continue home medications as indicated. Plan to transfuse blood products as ordered while awaiting gastroenterology evaluation. This note was generated with [employer] dictation software. It may contain incorrect words, spelling, and punctuation that were not noted in checking the note before signing. Subjective Subjective The patient was seen and examined at the bedside this morning. Events from the last 24 hours have been reviewed. The patient is currently afebrile, hemodynamically stable and maintaining appropriate oxygen saturations on BiPAP with an FiO2 requirement of 40%. White blood cell count is improved at 16,000. Hemoglobin is dropped to 6.9 g/dL. Accordingly, gastroenterology consultation was placed this morning. Overall, however, the patient reported that her respiratory status feels improved in light of ongoing antimicrobial therapy. Objective Data Objective Data The patient's most recent lab work, culture data and imaging studies have all been personally reviewed. RSV PCR was positive on April 26. Preliminary sputum culture from April 29 is demonstrating growth of 3+ Achromobacter. Vital Signs: Vital Signs Temp Pulse Resp BP Pulse Ox O2 Del Method O2 Flow Rate 98 F 95 20 H 125/52 H 94 High Flow 6 05/03/24 06:59 05/03/24 07:08 05/03/24 07:08 05/03/24 06:59 05/03/24 07:08 05/03/24 07:08 05/03/24 07:08 FiO2 40 05/03/24 03:30 Oxygen Flow Rate (L/min) 6 Oxygen Delivery Method High Flow Weight: 114 lb 10.246 oz Body Mass Index (BMI) 23.1 Intake & Output: Intake and Output for Last 24 Hours 05/01/24 05/02/24 05/03/24 23:59 23:59 23:59 Intake Total 1979 / 1979 120 / 120 720 / 720 Output Total 950 / 950 Balance 1030 / 1030 120 / 120 720 / 720 Lab / Micro Data Attestation: I reviewed the patient's lab results. 05/03/24 07:35 05/03/24 05:34 Labs: Laboratory Results - last 24 hr 05/03/24 05:34: WBC 16.6 H, RBC 2.91 L, Hgb 6.8 L, Hct 22.8 L, MCV 78.4 L, MCH 23.4 L, MCHC 29.8 L, RDW Std Deviation 47.4 H, RDW Coeff of Genaro 16.5 H, Plt Count 512 H, MPV 9.3, Immature Gran % (Auto) 0.900, Neut % (Auto) 87.7 H, Lymph % (Auto) 5.3 L, [place] % (Auto) 5.8, Eos % (Auto) 0.1, Baso % (Auto) 0.2, Absolute Neuts (auto) 14.6 H, Absolute Lymphs (auto) 0.88, Nucleated RBC % 0.7, Differential Comment , Platelet Estimate MOD INC, Hypochromasia 1+, Sodium 131 L, Potassium 3.4 L, Chloride 95 L, Carbon Dioxide 30.0, Anion Gap 6, BUN 30 H, Creatinine 0.65, Estim Creat Clear Calc 48.34, Est GFR (MDRD) Af Amer 117, Est GFR (MDRD) Non-Af 96, BUN/Creatinine Ratio 46.3 H, Glucose 91, Calcium 7.4 L 05/03/24 07:35: Hgb 6.9 L, Hct 22.7 L Micro: Microbiology 04/29/24 17:48 Sputum, Expectorated/Coughed Gram Stain - Final 04/29/24 17:48 Sputum, Expectorated/Coughed Respiratory Culture - Final Achromobacter denitrificans 05/01/24 09:00 Nasal Secretion SARS-CoV-2 Antigen (Rapid) - Final 04/26/24 17:32 Mucosa - Nose SARS-CoV-2, Influenza & RSV (PCR) - Final RSV ABG Data ABG results: ABG 05/02/24 10:03 Specimen Type ART Sample Site R Radial pH 7.34 L Bicarbonate Actual 32.7 H Total CO2 35 Base Excess 7 H O2 Saturation 100 H O2 % 80.0 ABG pCO2 60.6 H ABG pO2 187 H Luke Test Positive Respiration Rate 12 O2 Delivery Device BiPAP Vent Mode BiLevel Tidal Volume 450.0 POC PEEP 12 Rhythm Strip Rhythm Strip: Sinus Tach Rate: 109 Ectopy: None Physical Exam Const alert, oriented x3 and no apparent distress Constitutional Narrative: present at the bedside. BiPAP mask in place. General Appearance: cooperative HEENT normocephalic and head/scalp atraumatic Teeth and Gingiva: poor dentition Eyes EOMs intact bilaterally, conjunctivae normal and no scleral icterus Neck supple General: trachea midline Chest inspection of chest normal Resp Resp Narrative: BiPAP currently in place. Auscultation: diminished lung sounds; Negative for rales, rhonchi or wheezes Cardio regular rate and regular rhythm GI normal to inspection, nondistended, normoactive bowel sounds Extremity no clubbing, cyanosis or edema Skin no rashes or lesions noted Neuro CN's II-XII intact bilaterally, moves all extremities and no focal motor deficits Psych Mood & Affect: flat affect Charges/Coding Visit Charges Inpatient E&M: 64380 Subs Hosp L2
[2024-05-03] MEDS: busPIRone 5 MG Tablet 10 MG PO ×2 (10:02→22:34)
[2024-05-03] MEDS: Metoprolol Tartrate 25 MG Tablet PO (10:02)
[2024-05-03] MEDS: Clopidogrel Bisulfate 75 MG Tablet PO (10:02)
[2024-05-03] MEDS: DULoxetine Hcl 60 MG Capsule PO ×2 (10:02→22:35)
[2024-05-03] MEDS: guaiFENesin 1,200 MG Tablet 1200 MG PO ×2 (10:02→22:35)
[2024-05-03] MEDS: Meropenem 1 GM in 0.9% Normal Saline (100mL MB+) 100 ML IV (10:03)
[2024-05-03] MEDS: 0.9% Saline Lock 10 ML Syringe IV ×3 (10:03→15:35)
[2024-05-03] MEDS: Baclofen 10 MG Tablet PO (10:03)
[2024-05-03] MEDS: Amitriptyline 10 MG Tablet PO (10:03)
[2024-05-03] MEDS: Furosemide 40 MG Tablet PO (10:03)
--- NOTE | 2024-05-03 10:27 | PCM.PN.ID ---
Physical Exam Narrative Feeling a little better. Still cough, sputum. No fever, no n/v/d. Const alert and no apparent distress General Appearance: cooperative Resp Effort and Inspection: uses accessory muscles Auscultation: rhonchi and wheezes Cardio regular rate and regular rhythm GI soft to palpation, non-tender and non-distended Extremity General Extremity: Negative for edema Skin no rashes or lesions noted ID ID: Route of nutrition/ use of supplements: [] Nutritional Intake: [] IV Site: [] Dolan Catheter: [] Assessment & Plan Assessment/Plan (1) Asthma exacerbation in COPD: (2) Respiratory syncytial virus (RSV): (3) Pneumonia: PLAN: Sputum cx with achromobacter. Levaquin changed to meropenem 05/02, will continue. Will follow, thank you
--- NOTE | 2024-05-03 12:17 | PN_ITS ---
Subjective Subjective Patient seen and examined. She had to be put back on BiPAP today. She had no active complaints. Review of systems otherwise negative. Objective Data Objective Data Vital Signs: Vital Signs Temp Pulse Resp BP Pulse Ox O2 Del Method O2 Flow Rate 97.6 F L 95 20 H 120/52 L 88 Bi-pap 13 05/03/24 09:55 05/03/24 12:04 05/03/24 11:59 05/03/24 09:55 05/03/24 12:04 05/03/24 12:04 05/03/24 11:05 FiO2 40 05/03/24 11:59 Oxygen Flow Rate (L/min) 13 Oxygen Delivery Method Bi-pap Weight: 114 lb 10.246 oz Body Mass Index (BMI) 23.1 Intake & Output: Intake and Output for Last 24 Hours 05/01/24 05/02/24 05/03/24 23:59 23:59 23:59 Intake Total 1979 / 1979 120 / 120 821.75 / 821.75 Output Total 950 / 950 Balance 1030 / 1030 120 / 120 821.75 / 821.75 Lab / Micro Data 05/03/24 07:35 05/03/24 05:34 Labs: Laboratory Results - last 24 hr 05/03/24 05:34: WBC 16.6 H, RBC 2.91 L, Hgb 6.8 L, Hct 22.8 L, MCV 78.4 L, MCH 23.4 L, MCHC 29.8 L, RDW Std Deviation 47.4 H, RDW Coeff of Genaro 16.5 H, Plt Count 512 H, MPV 9.3, Immature Gran % (Auto) 0.900, Neut % (Auto) 87.7 H, Lymph % (Auto) 5.3 L, [place] % (Auto) 5.8, Eos % (Auto) 0.1, Baso % (Auto) 0.2, Absolute Neuts (auto) 14.6 H, Absolute Lymphs (auto) 0.88, Nucleated RBC % 0.7, Differential Comment , Platelet Estimate MOD INC, Hypochromasia 1+, Sodium 131 L , Potassium 3.4 L, Chloride 95 L, Carbon Dioxide 30.0, Anion Gap 6, BUN 30 H, Creatinine 0.65, Estim Creat Clear Calc 48.34, Est GFR (MDRD) Af Amer 117, Est GFR (MDRD) Non-Af 96, BUN/Creatinine Ratio 46.3 H, Glucose 91, Calcium 7.4 L 05/03/24 07:35: Hgb 6.9 L, Hct 22.7 L, Blood Type A NEGATIVE, Antibody Screen NEGATIVE, Crossmatch See Detail Micro: Microbiology 04/29/24 17:48 Sputum, Expectorated/Coughed Gram Stain - Final 04/29/24 17:48 Sputum, Expectorated/Coughed Respiratory Culture - Final Achromobacter denitrificans 05/01/24 09:00 Nasal Secretion SARS-CoV-2 Antigen (Rapid) - Final 04/26/24 17:32 Mucosa - Nose SARS-CoV-2, Influenza & RSV (PCR) - Final RSV Rhythm Strip Rhythm Strip: Sinus Tach Rate: 109 Ectopy: None Physical Exam Const alert, oriented x3, no apparent distress and average body habitus; Negative for healthy appearing Constitutional Narrative: looks weak and frail, on BIPAP General Appearance: cooperative HEENT normocephalic, head/scalp atraumatic, hearing grossly normal bilaterally, nasal mucous membranes and turbinates normal, moist oral mucous membranes and oropharynx normal Eyes PERRL, EOMs intact bilaterally and conjunctivae normal Eyes Narrative: Conjunctiva are slightly pale bilaterally Neck full ROM, no lymphadenopathy, supple and no JVD General: trachea midline Lymph Lymphatic: no lymphadenopathy noted and no lymphedema noted Chest inspection of chest normal Resp normal respiratory effort, no retractions, no use of accessory muscles and No clear to auscultation bilaterally Resp Narrative: moderately diminished breath sounds bilaterally, bilateral crackles, no wheezing. On BIPAP Auscultation: diminished lung sounds; Negative for rales or rhonchi Cardio regular rate, regular rhythm, S1 normal heart sound, S2 normal heart sound, no murmurs, no rub, no gallops, no clicks and peripheral pulses 2+ throughout GI normal to inspection, nondistended, normoactive bowel sounds, soft to palpation, non-tender and non-distended Back/Spine normal ROM Extremity normal to inspection, full ROM, normal capillary refill, no clubbing, cyanosis or edema, no calf tenderness and no pedal edema Extremity Narrative: Pedal and radial pulses are 2+ bilaterally General Extremity: no tenderness to palpation of joints or extremities Skin no rashes or lesions noted, skin turgor normal, no jaundice, no petechiae and no mottling General Skin Exam: no breakdown Neuro oriented x3, CN's II-XII intact bilaterally, moves all extremities, no focal motor deficits and no sensory deficits noted Speech: speech normal Motor Exam: strength 5/5 throughout and general weakness Psych thought process normal and cooperative Psych Narrative: Flat affect. Appearance: appropriate Mood & Affect: flat affect Assessment & Plan Assessment/Plan (1) Asthma exacerbation in COPD: (2) Respiratory syncytial virus (RSV): (3) Pneumonia: PLAN: Plan #Acute on chronic hypoxic respiratory failure due to RSV pneumonia and COPD exacerbation * she is back on BIPAP this morning. * still on IV solumedrol * on PO lasix. * pulmonology on board * aspiration precautions * sputum culture growing Achromobacter denitrificans, sensitive to Zosyn and Bactrim * on IV meropenem. ID on board. * Patient however allergic to penicillins. * CT chest done showed no evidence of filling defects but showed underlying emphysema with chronic bronchitis and bronchiectasis changes in the right middle lobe with small airway inflammation throughout the lung prasad bilaterally as well as bibasilar atelectasis * breathing treatment with bronchodilators * pulmonology on board * #Hyponatremia: * remains 131 * lasix currently on hold. * will continue to monitor * #Hypokalemia: K is 3.1. Will replace and trend. #Debility and weakness likely due to RSV infection * PT OT on board. Fall precautions. # Hypothyroidism: On Synthroid and liothyronine #Hypertension: On Eliquis and Lasix. IV Lasix held due to dehydration and hyponatremia. On PO lasix #Hyperlipidemia: On statin #History of TIA: Plavix and statin #Depression and anxiety: On duloxetine, BuSpar and Ativan as needed as well as mirtazapine and topiramate #History of GERD: Stable. Will PPI and sucralfate. #Iron deficiency anemia: * Hb today is 6.9 * Iron panel showed evidence of iron deficiency which is chronic for her. * Iron saturation was only 4.2 * Iron supplementation * follow up with GI on outpatient basis * transfuse if Hb <7 * c she had EGD and December 2023 which showed nonsevere nonerosive esophagitis with no bleeding and mild gastritis with nonbleeding duodenal ulcer with no stigmata of bleeding. * She was due to have a colonoscopy on 01/19/2024 but patient left AMA then * will consult GI for possible colonoscopy in light of acute on chronic anemia * #Thrombocytosis * platelets are elevated at 512. This is likely due to the acute on chronic anemia also. * DVT prophylaxis:bereket bobby'chloe. SCDs. Charges/Coding Visit Charges Inpatient E&M: 34652 Subs Hosp L3
--- NOTE | 2024-05-03 12:48 | NURSING ---
peripheral IV site leaking and discontinued- therefore ATB paused until blood is done infusing
[2024-05-03] MEDS: LORazepam 1 MG Tablet PO ×2 (14:14→22:35)
[2024-05-03] MEDS: 0.9% Normal Saline (100mL Bag) 100 ML 120 ML IV (15:04)
--- NOTE | 2024-05-03 15:26 | NURSING ---
approximately 1505 (blood bag empty, switched over to flushing with NS to clear tubing)
[2024-05-03] MEDS: Pantoprazole Sodium 40 MG in 0.9% Normal Saline (100mL MB+) 100 ML 330 MG IV ×2 (15:35→22:29)
--- NOTE | 2024-05-03 15:50 | NURSING ---
purewick placed per pt request
--- NOTE | 2024-05-03 16:56 | EX.PCM.CON.G ---
HPI Consult Data Date of Consult: 05/03/24 HPI Narrative Reason for Consultation: Anemia HPI Narrative: TAJ BLANK, is a 68 F who presented to the emergency department at [facility] on 04/26/2024 with a chief complaint of shortness of breath. She is oxygen dependent secondary to COPD at baseline on 4 L continuous. She stated that over the last couple days she has not been feeling well and has complained of chills, with no documented fever, malaise, generalized weakness, body aches, rhinorrhea, pharyngitis, intermittent cough and shortness of breath with wheezing. Her cough has been nonproductive overall and sputum production is no different than baseline. She called EMS today due to shortness of breath and they administered albuterol, DuoNebs and gave her IM Solu-Medrol and route. Upon arrival she did indicate she was starting to feel better. She has not had any nausea or vomiting, bowel sounds have been within normal limits and patient is wheelchair-bound at baseline. FEV1 at baseline is 52% predicted. She was sent to the ICU for commune acquired pneumonia secondary to RSV and bacterial infection along with COPD exacerbation. I was called to see her because of decreasing hemoglobin. Hemoglobin typically ranges between 11 and 12 other than a drop down to 6.8. She got 2 units of packed red blood cells today. On her CBC she was noted to have a microcytic anemia. She does not know if she has had a colonoscopy in the past. She did have an upper endoscopy in 2019 and is displaying significant gastritis. It was H. pylori negative. [facility] Medical History Acute exacerbation of chronic obstructive pulmonary disease (COPD) PTSD (post-traumatic stress disorder) Hyperthyroidism GI bleed Former smoker CPAP (continuous positive airway pressure) dependence On home oxygen therapy Myocardial infarct Congestive heart failure (CHF) Migraines Fall Contusion of nose Periorbital contusion of right eye Contusion of multiple fingers Chronic hypoxic respiratory failure Contusion of scalp Normocytic anemia Fibromyalgia Chronic respiratory failure with hypoxia RAUL (obstructive sleep apnea) Incisional hernia TIA (transient ischemic attack) Osteoporosis Osteoarthritis Thyroid disorder Diverticulitis History of heart attack Sleep apnea History of pneumonia COPD (chronic obstructive pulmonary disease) History of bronchitis Asthma HTN (hypertension) Depression Anxiety Nausea and vomiting GERD (gastroesophageal reflux disease) Heart disease spinal stimulator Spinal stenosis Chronic back pain Hypothyroidism Home Medications ?Medication ?Instructions ?Recorded ?Last Taken ?Type atorvastatin 80 mg tablet 80 mg PO QHS cholesterol 06/01/13 05/25/14 History 80 MG clopidogrel 75 mg tablet 75 mg PO DAILY anti platelet 06/01/13 11/18/23 History lorazepam 1 mg tablet (Ativan) 1 mg PO TID PRN Anxiety 11/17/18 Unknown History duloxetine 60 mg capsule,delayed 60 mg PO BID DEPRESSION 06/19/20 Unknown History release furosemide 40 mg tablet 40 mg PO DAILY water pill 08/23/22 Unknown History liothyronine 5 mcg tablet 10 mcg PO DAILY HYPOTHYROIDISM 08/23/22 Unknown History pantoprazole 40 mg tablet,delayed 40 mg PO BID ACID REFLEX 30 days 05/06/23 Unknown Rx release #60 tabs baclofen 10 mg tablet 10 mg PO DAILY SPASMS 10/09/23 Unknown History cholecalciferol (vitamin D3) 25 25 mcg PO .WEEKLY SUPPLEMENT 10/09/23 Unknown History mcg (1,000 unit) capsule metoprolol tartrate 25 mg tablet 25 mg PO Q12H blood pressure 10/09/23 Unknown History acetaminophen 500 mg tablet 500 mg PO Q6H PRN pain 11/05/23 Unknown History tiotropium bromide 2.5 2 inh inhalation DAILY LUNGS #3 ea 02/02/24 Unknown Rx mcg/actuation mist for inhalation (Spiriva Respimat) buspirone 10 mg tablet 10 mg PO BID ANXIETY 02/09/24 Unknown History diclofenac sodium 75 mg 75 mg PO BID see phyisican 02/09/24 Unknown History tablet,delayed release sucralfate 100 mg/mL oral 10 ml PO ACHS FOR STOMACH 02/09/24 Unknown History suspension topiramate 50 mg tablet 50 mg PO QHS SLEEP 02/09/24 Unknown History montelukast 10 mg tablet 10 mg PO QPM SEE PCP #90 tabs 02/15/24 Unknown Rx mirtazapine 15 mg tablet 15 mg PO QHS sleep #30 tabs 03/01/24 Unknown Rx albuterol sulfate 90 mcg/actuation 2 puff inhalation Q4H PRN COPD 03/11/24 Unknown History aerosol inhaler amitriptyline 10 mg tablet 10 mg PO DAILY nerve pain 03/11/24 Unknown History cyclobenzaprine 5 mg tablet 5 mg PO Q8H PRN muscle spasms 03/11/24 Unknown History furosemide 20 mg tablet 20 mg PO DAILY water pill 03/11/24 Unknown History hydroxyzine HCl 50 mg tablet 50 mg PO QHS 03/11/24 Unknown History ipratropium 0.5 mg-albuterol 3 mg 3 ml inhalation .Q4-6H PRN 03/11/24 Unknown History (2.5 mg base)/3 mL nebulization shortness of breath or wheezing soln levothyroxine 50 mcg tablet 50 mcg PO SUSA thyroid 03/11/24 Unknown History levothyroxine 75 mcg tablet 75 mcg PO MOTUWETHFR THYROID 03/11/24 Unknown History levofloxacin 750 mg tablet 750 mg PO DAILY PROPHYLAXIS #7 tabs 03/31/24 Unknown Rx mometasone-formoterol HFA 200 2 puff inhalation BID COPD 04/26/24 Unknown History mcg-5 mcg/actuation aerosol inhaler (Dulera) temazepam 30 mg capsule 30 mg PO QHS PRN PRN sleep 04/26/24 Unknown History Allergy/AdvReac Type Severity Reaction Status Date / Time cefaclor (From Ceclor) Allergy Itching Verified 04/26/24 16:54 clarithromycin Allergy Hives Verified 04/26/24 16:54 doxycycline Allergy Itching Verified 04/26/24 16:54 Penicillins Allergy Hives Verified 04/26/24 16:54 Sulfa (Sulfonamide Allergy Hives Verified 04/26/24 16:54 Antibiotics) biotin AdvReac Unknown Unknown Verified 04/26/24 16:54 zolpidem (From Ambien) AdvReac Unknown mental Verified 04/26/24 16:54 issues Family History Father Asthma Heart disease Grandmother Breast cancer Diabetes Mother Heart disease COPD (chronic obstructive pulmonary disease) Other Cancer Surgical History Hx of BKA History of appendectomy History of incisional hernia repair History of incisional hernia repair (~12/20/18) Hx of cholecystectomy History of esophagogastroduodenoscopy (EGD) (~07/2018) Previous back surgery S/P hysterectomy S/P carpal tunnel release S/P knee surgery S/P correction of deviated nasal septum Status post thyroidectomy H/O heart artery stent Status post amputation of right foot Social History household members: spouse Smoking Status: Former smoker Tobacco: How many years used: 25 second hand exposure: Yes alcohol intake: never substance use type: does not use caffeine: Yes what type of physical activity do you participate in: none frequency: does not exercise ROS ROS Narrative 10 systems were reviewed with pertinent positives as noted in the HPI above. Physical Exam Const alert, oriented x3, no apparent distress and average body habitus; Negative for healthy appearing General Appearance: cooperative HEENT normocephalic, head/scalp atraumatic, hearing grossly normal bilaterally, nasal mucous membranes and turbinates normal, moist oral mucous membranes and oropharynx normal Eyes PERRL, EOMs intact bilaterally and conjunctivae normal Eyes Narrative: Conjunctiva are slightly pale bilaterally Neck full ROM, no lymphadenopathy, supple and no JVD General: trachea midline Lymph Lymphatic: no lymphadenopathy noted and no lymphedema noted Chest inspection of chest normal Resp normal respiratory effort, no retractions, no use of accessory muscles and No clear to auscultation bilaterally Resp Narrative: moderately diminished breath sounds bilaterally, bilateral crackles, no wheezing. On BIPAP Auscultation: diminished lung sounds; Negative for rales or rhonchi Cardio regular rate, regular rhythm, S1 normal heart sound, S2 normal heart sound, no murmurs, no rub, no gallops, no clicks and peripheral pulses 2+ throughout GI normal to inspection, nondistended, normoactive bowel sounds, soft to palpation, non-tender and non-distended Back/Spine normal ROM Extremity normal to inspection, full ROM, normal capillary refill, no clubbing, cyanosis or edema, no calf tenderness and no pedal edema Extremity Narrative: Pedal and radial pulses are 2+ bilaterally General Extremity: no tenderness to palpation of joints or extremities Skin no rashes or lesions noted, skin turgor normal, no jaundice, no petechiae and no mottling General Skin Exam: no breakdown Neuro oriented x3, CN's II-XII intact bilaterally, moves all extremities, no focal motor deficits and no sensory deficits noted Speech: speech normal Motor Exam: strength 5/5 throughout and general weakness Psych thought process normal and cooperative Psych Narrative: Flat affect. Appearance: appropriate Mood & Affect: flat affect Lab / Micro Data 05/03/24 07:35 05/03/24 05:34 Labs: Laboratory Results - last 24 hr 05/03/24 05:34: WBC 16.6 H, RBC 2.91 L, Hgb 6.8 L, Hct 22.8 L, MCV 78.4 L, MCH 23.4 L, MCHC 29.8 L, RDW Std Deviation 47.4 H, RDW Coeff of [place] 16.5 H, Plt Count 512 H, MPV 9.3, Immature Gran % (Auto) 0.900, Neut % (Auto) 87.7 H, Lymph % (Auto) 5.3 L, [place] % (Auto) 5.8, Eos % (Auto) 0.1, Baso % (Auto) 0.2, Absolute Neuts (auto) 14.6 H, Absolute Lymphs (auto) 0.88, Nucleated RBC % 0.7, Differential Comment , Platelet Estimate MOD INC, Hypochromasia 1+, Sodium 131 L, Potassium 3.4 L, Chloride 95 L, Carbon Dioxide 30.0, Anion Gap 6, BUN 30 H, Creatinine 0.65, Estim Creat Clear Calc 48.34, Est GFR (MDRD) Af Amer 117, Est GFR (MDRD) Non-Af 96, BUN/Creatinine Ratio 46.3 H, Glucose 91, Calcium 7.4 L 05/03/24 07:35: Hgb 6.9 L, Hct 22.7 L, Blood Type A NEGATIVE, Antibody Screen NEGATIVE, Crossmatch See Detail Micro: Microbiology 04/29/24 17:48 Sputum, Expectorated/Coughed Gram Stain - Final 04/29/24 17:48 Sputum, Expectorated/Coughed Respiratory Culture - Final Achromobacter denitrificans Rhythm Strip Rhythm Strip: Sinus Tach Rate: 109 Ectopy: None Assessment & Plan Assessment/Plan (1) Asthma exacerbation in COPD: (2) Respiratory syncytial virus (RSV): (3) Pneumonia: PLAN: Plan 68-year-old with acute on chronic hypoxic respiratory failure due to RSV pneumonia, Achromobacter infection and COPD exacerbation She is being managed by pulmonary and hospitalist service She was also discovered to have a significant iron deficiency anemia. Her hemoglobin is 6.9 with iron studies showing a saturation of 4.2, ferritin of 6. She also appears to have reactive possibly secondary thrombocytosis likely secondary to an upper GI bleed. She should undergo an upper endoscopy out upper GI tract. If that is negative then she will need to have colonoscopy. Charges/Coding Visit Charges Inpatient E&M: 67084 Init Hosp L3
[2024-05-03] MEDS: Atorvastatin Calcium 80 MG Tablet PO (22:34)
[2024-05-03] MEDS: Mirtazapine 15 MG Tablet PO (22:34)
[2024-05-03] MEDS: Montelukast 10 MG Tablet PO (22:35)
[2024-05-03] MEDS: Topiramate 50 MG Tablet PO (22:35)
[2024-05-03] MEDS: RisperiDONE 1 MG Tablet PO (22:35)
[2024-05-03] MEDS: hydrOXYzine PAM 25 MG Capsule 50 MG PO (22:35)
[2024-05-04] VITALS (17 sets, daily range): BP systolic 88–116; BP diastolic 48–72; PULSE 72–114; RESP 12–25; TEMP 36.1–36.9; O2SAT 87–98; BMI 23.8
[2024-05-04] MEDS: Meropenem 1 GM in 0.9% Normal Saline (100mL MB+) 100 ML IV ×3 (00:20→22:06)
[2024-05-04] MEDS: LORazepam 1 MG Tablet PO ×3 (01:45→23:59)
--- NOTE | 2024-05-04 02:33 | NURSING ---
Pt very confused. Pt yelling out about a baby. Pt pulled up in bed
[2024-05-04] MEDS: Ipratropium/Albuterol Sulfate 3 ML AMPUL.NEB INHALATION ×5 (02:40→23:05)
[2024-05-04 02:57] LABS: Allen Test Positive; Base Excess 6 mmol/L (-2 to +2); Bicarbonate 30.6 mmol/L (22-26); Blood Gas Specimen Type ART; Mode Not entered; O2 Delivery Device HFNC; PO2 59 mmHG (75-100); SITE R Radial; SO2 90 % (95-99); Total Carbon Dioxide 32 mmol/L; pCO2 49.4 mmHg (35-45)
--- NOTE | 2024-05-04 03:43 | PN.HOSP_ITS ---
Hospitalist Note Patient noted by nursing staff to be delirious this evening and had slightly worsening oxygen requirements. I discussed the patient with respiratory therapy and they heather an ABG at 0253. ABG showed pH 7.40, pCO2 49, pO2 90 on 10 L high flow nasal cannula. On chart review, patient has been on IV Solu-Medrol 3 times daily for 8 days now. I suspect this is contributing to her delirium. Will defer to principal architectural firm and daytime physician on potential need to decrease steroid dosing.
--- NOTE | 2024-05-04 03:51 | NURSING ---
Pt has been extremely agitated and confused this shift, hallucinating, setting off bed exits, pulling off masks and o2 tubing.
--- NOTE | 2024-05-04 03:55 | NURSING ---
pt hallucinating, acting like she is taking a drink of water and putting the make believe cup on her table.
[2024-05-04 06:16] LABS: Absolute Lymphocyte Count 0.56 X10^3/uL (0.83-4.51); Absolute Neutrophil Count 12.8 X10^3/uL (2.0-7.7); Basophil# 0.07 X10^3/uL; Basophil% 0.5 % (0-1); Eosinophil# 0.03 X10^3/uL; Eosinophils% 0.2 % (0-5); Hemoglobin 8.1 g/dL (12.0-15.0); Lymphocyte # 0.56 X10^3/ul (0.83-4.51); Lymphocyte % 3.8 % (19-41); Mean Corp Hgb Conc 31.2 g/dL (32-36); Mean Corpuscular Volume 80.2 fL (81-99); Mean Platelet Vol. 9.6 fl (6.2-12.0); Monocyte# 0.86 X10^3/uL; Monocyte% 5.9 % (0-10); NRBC Flagged by Analyzer 0.3 % (0-5); Neutrophil # 12.84 X10^3/uL (2.7-7.7); POSITIVE DIFFERENTIAL YES; POSITIVE MORPHOLOGY YES; Platelet Count 458 K/mm3 (150-450); RBC Distribution Width CV 16.9 % (11.6-14.6); RBC Distribution Width SD 49.9 fl (35.1-43.9); Red Blood Count 3.24 M/mm3 (4.2-5.4); White Blood Count 14.6 K/mm3 (4.4-11.0)
[2024-05-04 06:29] LABS: Differential Indicated SCAN CRITERIA MET
[2024-05-04 06:36] LABS: Anion Gap 5 (5-15); BUN 25 mg/dL (7-18); BUN/Creat Ratio 38.7 RATIO (10-20); Calcium,Total 7.2 mg/dL (8.5-10.1); Chloride 93 mmol/L (98-107); Creatinine, Serum 0.65 mg/dL (0.55-1.02); EST Glomerular Filtration Rate 97 mL/min (>60); Est Glom Filt Rate - Afr Amer 117 mL/min (>60); Estimated Creatinine Clearance 48.34 ml/min; Glucose 118 mg/dL (74-106); Potassium 2.9 mmol/L (3.5-5.1); Sodium Level 131 mmol/L (136-145)
[2024-05-04 07:54] LABS: Ovalocyte 1+; Polychromasia 1+
[2024-05-04] MEDS: Potassium Chloride 10mEq/100mL 10 MEQ/100 ML IV.SOLN. 100 MEQ IV BOLUS ×3 (11:31→13:51)
--- NOTE | 2024-05-04 14:04 | PN_ITS ---
Subjective Subjective Patient seen and examined. She still remains short of breath. She was on 12 L at time of review this morning. She complains of a cough which is productive. She denies any chest pain, palpitations, dizziness, nausea vomiting or any other symptoms. Review of systems otherwise negative. Objective Data Objective Data Vital Signs: Vital Signs Temp Pulse Resp BP Pulse Ox O2 Del Method O2 Flow Rate 97.6 F L 105 H 20 H 104/60 88 Room Air 13 05/04/24 11:49 05/04/24 11:02 05/04/24 11:49 05/04/24 11:49 05/04/24 11:49 05/04/24 11:49 05/04/24 10:46 FiO2 55 05/04/24 11:02 Oxygen Flow Rate (L/min) 13 Oxygen Delivery Method Room Air Weight: 118 lb 2.684 oz Body Mass Index (BMI) 23.8 Intake & Output: Intake and Output for Last 24 Hours 05/02/24 05/03/24 05/04/24 23:59 23:59 23:59 Intake Total 120 / 120 1690.75 / 1690.75 418.25 / 418.25 Output Total 600 / 600 Balance 120 / 120 1090.75 / 1090.75 418.25 / 418.25 Lab / Micro Data 05/04/24 05:15 05/04/24 05:15 Labs: Laboratory Results - last 24 hr 05/03/24 07:35: Crossmatch See Detail 05/04/24 05:15: WBC 14.6 H, RBC 3.24 L, Hgb 8.1 L, Hct 26.0 L, MCV 80.2 L, MCH 25.0 L, MCHC 31.2 L, RDW Std Deviation 49.9 H, RDW Coeff of Genaro 16.9 H, Plt Count 458 H, MPV 9.6, Immature Gran % (Auto) 1.600 H, Neut % (Auto) 88.0 H, L ymph % (Auto) 3.8 L, Monona % (Auto) 5.9, Eos % (Auto) 0.2, Baso % (Auto) 0.5, A bsolute Neuts (auto) 12.8 H, Absolute Lymphs (auto) 0.56 L, Nucleated RBC % 0.3, Polychromasia 1+, Ovalocytes 1+, Sodium 131 L, Potassium 2.9 L, Chloride 93 L, C arbon Dioxide 33.0 H, Anion Gap 5, BUN 25 H, Creatinine 0.65, Estim Creat Clear Calc 48.34, Est GFR (MDRD) Af Amer 117, Est GFR (MDRD) Non-Af 97, BUN/Creatinine Ratio 38.7 H, Glucose 118 H, Calcium 7.2 L Micro: Microbiology 04/29/24 17:48 Sputum, Expectorated/Coughed Gram Stain - Final 04/29/24 17:48 Sputum, Expectorated/Coughed Respiratory Culture - Final Achromobacter denitrificans 05/01/24 09:00 Nasal Secretion SARS-CoV-2 Antigen (Rapid) - Final 04/26/24 17:32 Mucosa - Nose SARS-CoV-2, Influenza & RSV (PCR) - Final RSV ABG Data ABG results: ABG 05/04/24 02:53 Specimen Type ART Sample Site R Radial pH 7.40 Bicarbonate Actual 30.6 H Total CO2 32 Base Excess 6 H O2 Saturation 90 L O2 % 10.0 ABG pCO2 49.4 H ABG pO2 59 L Luke Test Positive O2 Delivery Device HFNC Vent Mode Not entered Rhythm Strip Rhythm Strip: Sinus Tach Rate: 109 Ectopy: None Physical Exam Const alert, oriented x3, no apparent distress and average body habitus; Negative for healthy appearing Constitutional Narrative: looks weak and frail, on 12L of oxygen at time of review. General Appearance: cooperative and comfortable HEENT normocephalic, head/scalp atraumatic, hearing grossly normal bilaterally, nasal mucous membranes and turbinates normal, moist oral mucous membranes and oropharynx normal Eyes PERRL, EOMs intact bilaterally and conjunctivae normal Neck full ROM, no lymphadenopathy, supple and no JVD General: trachea midline Lymph Lymphatic: no lymphadenopathy noted and no lymphedema noted Chest inspection of chest normal Resp no use of accessory muscles and No clear to auscultation bilaterally Resp Narrative: moderately diminished breath sounds bilaterally,bilateral coarse crackles. On 12L of oxygen by nasal canula. Cardio regular rate, regular rhythm, S1 normal heart sound, S2 normal heart sound, no murmurs, no clicks and peripheral pulses 2+ throughout GI normal to inspection, nondistended, normoactive bowel sounds, soft to palpation, non-tender and non-distended Back/Spine normal ROM Extremity normal to inspection, full ROM, normal capillary refill, no clubbing, cyanosis or edema and no calf tenderness Extremity Narrative: Pedal and radial pulses are 2+ bilaterally General Extremity: no tenderness to palpation of joints or extremities Skin no rashes or lesions noted, skin turgor normal, no jaundice, no petechiae and no mottling General Skin Exam: no breakdown Neuro oriented x3, CN's II-XII intact bilaterally, moves all extremities, no focal motor deficits and no sensory deficits noted Speech: speech normal Motor Exam: strength 5/5 throughout and general weakness Psych thought process normal and cooperative Psych Narrative: Flat affect. Appearance: appropriate Mood & Affect: flat affect Assessment & Plan Assessment/Plan (1) Asthma exacerbation in COPD: (2) Respiratory syncytial virus (RSV): (3) Pneumonia: PLAN: Plan #Acute on chronic hypoxic respiratory failure due to RSV pneumonia and COPD exacerbation * she was on 12L of oxygen at time of review. * still on IV solumedrol * on PO lasix. * pulmonology on board * aspiration precautions * sputum culture growing Achromobacter denitrificans * on IV meropenem. ID on board. * Patient however allergic to penicillins. * CT chest done showed no evidence of filling defects but showed underlying emphysema with chronic bronchitis and bronchiectasis changes in the right middle lobe with small airway inflammation throughout the lung prasad bilaterally as well as bibasilar atelectasis * breathing treatment with bronchodilators * pulmonology on board * #Hyponatremia: * remains 131 * lasix currently on hold. * will continue to monitor * #Hypokalemia: K is 2.9 today. Will replace and trend. Check magnesium level #Debility and weakness likely due to RSV infection * PT OT on board. Fall precautions. # Hypothyroidism: On Synthroid and liothyronine #Hypertension: On Eliquis and Lasix. IV Lasix held due to dehydration and hyponatremia. On PO lasix #Hyperlipidemia: On statin #History of TIA: Plavix and statin #Depression and anxiety: On duloxetine, BuSpar and Ativan as needed as well as mirtazapine and topiramate #History of GERD: Stable. Will PPI and sucralfate. #Iron deficiency anemia: * Hb today is up to 8.1 after being transfused with one unit of PRBC * Iron panel showed evidence of iron deficiency which is chronic for her. * Iron saturation was only 4.2 * Iron supplementation * follow up with GI on outpatient basis * transfuse if Hb <7 * she had EGD and December 2023 which showed nonsevere nonerosive esophagitis with no bleeding and mild gastritis with nonbleeding duodenal ulcer with no stigmata of bleeding. * She was due to have a colonoscopy on 01/19/2024 but patient left AMA then * GI consulted. Await recs. * will consult GI for possible colonoscopy in light of acute on chronic anemia * #Thrombocytosis * platelets are down to 458 today. This is likely due to the acute on chronic anemia also. * DVT prophylaxis:SCDs. Lovenox dc'd due to acute on chronic anemia Charges/Coding Visit Charges Inpatient E&M: 21095 Subs Hosp L3
--- NOTE | 2024-05-04 17:00 | EX.PCM.PN.GI ---
Subjective Subjective Patient's breathing today became a lot more labored. She had to be put on increased supplemental oxygen. She was supposed to get an upper endoscopy today but it was put on hold by anesthesia. Objective Data Objective Data Vital Signs: Vital Signs Temp Pulse Resp BP Pulse Ox O2 Del Method O2 Flow Rate 97.6 F L 105 H 24 H 104/60 92 High Flow 13 05/04/24 11:49 05/04/24 15:22 05/04/24 15:22 05/04/24 11:49 05/04/24 15:22 05/04/24 15:22 05/04/24 15:22 FiO2 55 05/04/24 11:02 Oxygen Flow Rate (L/min) 13 Oxygen Delivery Method High Flow Weight: 118 lb 2.684 oz Body Mass Index (BMI) 23.8 Intake & Output: Intake and Output for Last 24 Hours 05/02/24 05/03/24 05/04/24 23:59 23:59 23:59 Intake Total 120 / 120 1690.75 / 1690.75 518.25 / 518.25 Output Total 600 / 600 200 / 200 Balance 120 / 120 1090.75 / 1090.75 318.25 / 318.25 Lab / Micro Data 05/04/24 05:15 05/04/24 05:15 Labs: Laboratory Results - last 24 hr 05/04/24 05:15: WBC 14.6 H, RBC 3.24 L, Hgb 8.1 L, Hct 26.0 L, MCV 80.2 L, MCH 25.0 L, MCHC 31.2 L, RDW Std Deviation 49.9 H, RDW Coeff of Genaro 16.9 H, Plt Count 458 H, MPV 9.6, Immature Gran % (Auto) 1.600 H, Neut % (Auto) 88.0 H, Lymph % (Auto) 3.8 L, Archer % (Auto) 5.9, Eos % (Auto) 0.2, Baso % (Auto) 0.5, Absolute Neuts (auto) 12.8 H, Absolute Lymphs (auto) 0.56 L, Nucleated RBC % 0.3, Polychromasia 1+, Ovalocytes 1+, Sodium 131 L, Potassium 2.9 L, Chloride 93 L, Carbon Dioxide 33.0 H, Anion Gap 5, BUN 25 H, Creatinine 0.65, Estim Creat Clear Calc 48.34, Est GFR (MDRD) Af Amer 117, Est GFR (MDRD) Non-Af 97, BUN/Creatinine Ratio 38.7 H, Glucose 118 H, Calcium 7.2 L Micro: Microbiology 04/29/24 17:48 Sputum, Expectorated/Coughed Gram Stain - Final 04/29/24 17:48 Sputum, Expectorated/Coughed Respiratory Culture - Final Achromobacter denitrificans 05/01/24 09:00 Nasal Secretion SARS-CoV-2 Antigen (Rapid) - Final 04/26/24 17:32 Mucosa - Nose SARS-CoV-2, Influenza & RSV (PCR) - Final RSV ABG Data ABG results: ABG 05/04/24 02:53 Specimen Type ART Sample Site R Radial pH 7.40 Bicarbonate Actual 30.6 H Total CO2 32 Base Excess 6 H O2 Saturation 90 L O2 % 10.0 ABG pCO2 49.4 H ABG pO2 59 L Luke Test Positive O2 Delivery Device HFNC Vent Mode Not entered Rhythm Strip Rhythm Strip: Sinus Tach Rate: 109 Ectopy: None Physical Exam Const alert, oriented x3, no apparent distress and average body habitus; Negative for healthy appearing Constitutional Narrative: looks weak and frail, on 12L of oxygen at time of review. General Appearance: cooperative and comfortable HEENT normocephalic, head/scalp atraumatic, hearing grossly normal bilaterally, nasal mucous membranes and turbinates normal, moist oral mucous membranes and oropharynx normal Eyes PERRL, EOMs intact bilaterally and conjunctivae normal Neck full ROM, no lymphadenopathy, supple and no JVD General: trachea midline Lymph Lymphatic: no lymphadenopathy noted and no lymphedema noted Chest inspection of chest normal Resp no use of accessory muscles and No clear to auscultation bilaterally Resp Narrative: moderately diminished breath sounds bilaterally,bilateral coarse crackles. On 12L of oxygen by nasal canula. Cardio regular rate, regular rhythm, S1 normal heart sound, S2 normal heart sound, no murmurs, no clicks and peripheral pulses 2+ throughout GI normal to inspection, nondistended, normoactive bowel sounds, soft to palpation, non-tender and non-distended Back/Spine normal ROM Extremity normal to inspection, full ROM, normal capillary refill, no clubbing, cyanosis or edema and no calf tenderness Extremity Narrative: Pedal and radial pulses are 2+ bilaterally General Extremity: no tenderness to palpation of joints or extremities Skin no rashes or lesions noted, skin turgor normal, no jaundice, no petechiae and no mottling General Skin Exam: no breakdown Neuro oriented x3, CN's II-XII intact bilaterally, moves all extremities, no focal motor deficits and no sensory deficits noted Speech: speech normal Motor Exam: strength 5/5 throughout and general weakness Psych thought process normal and cooperative Psych Narrative: Flat affect. Appearance: appropriate Mood & Affect: flat affect Assessment & Plan Assessment/Plan (1) Asthma exacerbation in COPD: (2) Respiratory syncytial virus (RSV): (3) Pneumonia: PLAN: Plan 68-year-old with acute on chronic hypoxic respiratory failure due to RSV pneumonia, Achromobacter infection and COPD exacerbation She is being managed by pulmonary and hospitalist service. She was also discovered to have a significant iron deficiency anemia. Her hemoglobin is 6.9 with iron studies showing a saturation of 4.2, ferritin of 6. She also appears to have reactive possibly secondary thrombocytosis likely secondary to an upper GI bleed. She should undergo an upper endoscopy out upper GI tract. If that is negative then she will need to have colonoscopy. Patient noted by nursing staff to be delirious this evening and had slightly worsening oxygen requirements. ABG at 0253. ABG showed pH 7.40, pCO2 49, pO2 90 on 10 L high flow nasal cannula. Hemoglobin is 8.1 after blood transfusion. At this time she is not stable enough to undergo an upper endoscopy. Will try for tomorrow. Keep n.p.o. past midnight. Charges/Coding Visit Charges Inpatient E&M: 54523 [facility] Hosp L3
--- NOTE | 2024-05-04 17:59 | NURSING ---
This nurse was not able to give 10 am Protonix due to running Potassium bags today. Patient only has one lumen Midline. Called pharmacy to have it reschedule due to not being able to run this medication. Patient schedule to give at 22:00 tonight
--- NOTE | 2024-05-04 18:14 | NURSING ---
Addendum entered by Era Guido 05/04/24 18:17: carlos house registry rn informed even with bipap spo2 82-84% did call respiratory requesting assistance. Original Note: house registry rn updated on patient.
--- NOTE | 2024-05-04 18:33 | PCM.PN.BLA ---
Progress Note 6:33pm I was called to see patient who was getting restless and taking her BIPAP off. She would desaturate to the 50s with the BIPAP off. She was alert but restless.She was not tachycardic or tachypneic and BP was normal. Will place patient on AiRVO and see if we can have patient in restraints. Will transfer patient to PCU.
--- NOTE | 2024-05-04 18:46 | NURSING ---
unable to reach house cleaner via phone- sent backline text updated there are orders for pcu with soft wrist restraints. noted as viewed.
[2024-05-04 18:47] LABS: Allen Test Positive; Base Excess 5 mmol/L (-2 to +2); Bicarbonate 29.9 mmol/L (22-26); Blood Gas Specimen Type ART; Mode Not entered; O2 Delivery Device BiPAP; PEEP 14; PO2 163 mmHG (75-100); RR 12; SITE R Radial; SO2 99 % (95-99); Total Carbon Dioxide 32 mmol/L; pCO2 52.3 mmHg (35-45); pH 7.37 (7.35-7.45)
--- NOTE | 2024-05-04 18:56 | NURSING ---
backline warehouse shipping clerk again as needing pcu bed. noted as viewed.
--- NOTE | 2024-05-04 19:10 | NURSING ---
primary RN updated on bed assignment of pcu 117
[2024-05-04] MEDS: Atorvastatin Calcium 80 MG Tablet PO (21:17)
[2024-05-04] MEDS: busPIRone 5 MG Tablet 10 MG PO (21:17)
[2024-05-04] MEDS: RisperiDONE 1 MG Tablet PO (21:17)
[2024-05-04] MEDS: Sucralfate 1 GM Tablet PO (21:17)
[2024-05-04] MEDS: DULoxetine Hcl 60 MG Capsule PO (21:18)
[2024-05-04] MEDS: Metoprolol Tartrate 25 MG Tablet PO (21:18)
[2024-05-04] MEDS: Mirtazapine 15 MG Tablet PO (21:18)
[2024-05-04] MEDS: Montelukast 10 MG Tablet PO (21:19)
[2024-05-04] MEDS: guaiFENesin 1,200 MG Tablet 1200 MG PO (21:19)
[2024-05-04] MEDS: Pantoprazole Sodium 40 MG in 0.9% Normal Saline (100mL MB+) 100 ML 330 MG IV (21:36)
[2024-05-04] MEDS: Topiramate 50 MG Tablet PO (21:45)
[2024-05-04] MEDS: hydrOXYzine PAM 25 MG Capsule 50 MG PO (21:45)
[2024-05-04] MEDS: MELATONIN 3 MG TABLET PO (23:59)
[2024-05-05] VITALS (13 sets, daily range): BP systolic 94–105; BP diastolic 48–61; PULSE 74–102; RESP 12–24; TEMP 35.9–36.6; O2SAT 92–100; BMI 22.8
[2024-05-05] MEDS: LORazepam 2 MG/ML Syringe 0.5 MG IV (02:53)
[2024-05-05] MEDS: Ipratropium/Albuterol Sulfate 3 ML AMPUL.NEB INHALATION ×4 (03:35→22:50)
[2024-05-05 05:26] LABS: Absolute Lymphocyte Count 0.74 X10^3/uL (0.83-4.51); Absolute Neutrophil Count 11.4 X10^3/uL (2.0-7.7); Basophil# 0.03 X10^3/uL; Basophil% 0.2 % (0-1); Eosinophil# 0.02 X10^3/uL; Eosinophils% 0.1 % (0-5); Hematocrit 24.5 % (37-47); Hemoglobin 7.6 g/dL (12.0-15.0); Lymphocyte # 0.74 X10^3/ul (0.83-4.51); Lymphocyte % 5.4 % (19-41); Mean Corpuscular Hgb 25.1 pg (27.0-32.0); Mean Corpuscular Volume 80.9 fL (81-99); Mean Platelet Vol. 9.5 fl (6.2-12.0); Monocyte# 1.28 X10^3/uL; Monocyte% 9.3 % (0-10); NRBC Flagged by Analyzer 0.1 % (0-5); Neutrophil # 11.41 X10^3/uL (2.7-7.7); Neutrophil % 82.5 % (47-70); POSITIVE MORPHOLOGY YES; Platelet Count 460 K/mm3 (150-450); RBC Distribution Width CV 17.5 % (11.6-14.6); RBC Distribution Width SD 51.8 fl (35.1-43.9); Red Blood Count 3.03 M/mm3 (4.2-5.4); White Blood Count 13.8 K/mm3 (4.4-11.0)
[2024-05-05 05:29] LABS: Differential Indicated SCAN CRITERIA MET
[2024-05-05 05:48] LABS: Anion Gap 6 (5-15); BUN 18 mg/dL (7-18); Calcium,Total 7.4 mg/dL (8.5-10.1); Chloride 102 mmol/L (98-107); Creatinine, Serum 0.46 mg/dL (0.55-1.02); EST Glomerular Filtration Rate 143 mL/min (>60); Est Glom Filt Rate - Afr Amer 173 mL/min (>60); Estimated Creatinine Clearance 48.34 ml/min; Glucose 69 mg/dL (74-106); Potassium 3.1 mmol/L (3.5-5.1); Sodium Level 138 mmol/L (136-145)
[2024-05-05 07:49] LABS: Differential Comment SCANNED
[2024-05-05] MEDS: Pantoprazole Sodium 40 MG in 0.9% Normal Saline (100mL MB+) 100 ML 330 MG IV ×2 (10:01→19:42)
[2024-05-05] MEDS: Furosemide 40 MG Tablet PO (10:02)
[2024-05-05] MEDS: DULoxetine Hcl 60 MG Capsule PO (10:02)
[2024-05-05] MEDS: predniSONE 20 MG Tablet 40 MG PO (10:02)
[2024-05-05] MEDS: guaiFENesin 1,200 MG Tablet 1200 MG PO (10:02)
[2024-05-05] MEDS: busPIRone 5 MG Tablet 10 MG PO (10:03)
[2024-05-05] MEDS: Amitriptyline 10 MG Tablet PO (10:03)
[2024-05-05] MEDS: Clopidogrel Bisulfate 75 MG Tablet PO (10:03)
[2024-05-05] MEDS: Baclofen 10 MG Tablet PO (10:04)
--- NOTE | 2024-05-05 10:41 | RAD_ITS ---
INDICATION: Hypoxemia EXAMINATION/TECHNIQUE: X-RAY - portable upright AP chest x-ray COMPARISON: 04/27/2024, 05/01/2024 chest x-ray FINDINGS: LINES/DEVICES: None. LUNGS: Persistent bibasilar subsegmental atelectasis and/or fibrosis. No new consolidations or pleural effusions. MEDIASTINUM AND CARDIOVASCULAR STRUCTURES: Cardiac silhouette stable within normal limits. BONES AND SOFT TISSUES: Stable multiple chronic right rib fractures. No acute changes. RAD/Chest 1 View (Portable) IMPRESSION: Stable portable chest x-ray with bibasilar atelectatic/fibrotic changes. No acute consolidative process. Electronically Signed: Lucian Fletcher MD at 17:10 EST ,
--- NOTE | 2024-05-05 10:43 | PCM.PN.ID ---
Physical Exam Narrative Feeling a little better, dyspnea improved, no fever Const alert and no apparent distress Resp Effort and Inspection: uses accessory muscles Auscultation: diminished lung sounds Cardio regular rate and regular rhythm GI soft to palpation, non-tender and non-distended Skin no rashes or lesions noted ID ID: Route of nutrition/ use of supplements: [] Nutritional Intake: [] IV Site: [] Dolan Catheter: [] Assessment & Plan Assessment/Plan (1) Asthma exacerbation in COPD: (2) Respiratory syncytial virus (RSV): (3) Pneumonia: PLAN: Sputum cx with achromobacter. Levaquin changed to meropenem 05/02, will continue. EGD on hold. Will follow
[2024-05-05] MEDS: Meropenem 1 GM in 0.9% Normal Saline (100mL MB+) 100 ML IV ×2 (12:12→21:56)
[2024-05-05] MEDS: Sucralfate 1 GM Tablet PO ×2 (12:15→16:11)
[2024-05-05] MEDS: Potassium Chloride Oral Tablet 20 MEQ 40 MEQ PO (12:19)
[2024-05-05] MEDS: 0.9% Normal Saline (100mL Bag) 100 ML 15 ML IV (16:11)
--- NOTE | 2024-05-05 16:56 | PN.GI_ITS ---
Subjective Subjective Patient is still having a lot of breathing difficulties. She is still on high flow oxygen with high oxygen requirements. Objective Data Objective Data Vital Signs: Vital Signs Temp Pulse Resp BP Pulse Ox O2 Del Method O2 Flow Rate 97.8 F 99 19 H 94/48 L 99 Airvo 12 05/05/24 16:06 05/05/24 16:06 05/05/24 16:06 05/05/24 16:06 05/05/24 16:06 05/05/24 16:19 05/05/24 08:17 FiO2 82 05/05/24 06:00 Oxygen Flow Rate (L/min) 12 Oxygen Delivery Method Airvo Weight: 113 lb 1.554 oz Body Mass Index (BMI) 22.8 Intake & Output: Intake and Output for Last 24 Hours 05/03/24 05/04/24 05/05/24 23:59 23:59 23:59 Intake Total 1690.75 / 1690.75 1098.25 / 1098.25 970 / 970 Output Total 600 / 600 400 / 400 400 / 400 Balance 1090.75 / 1090.75 698.25 / 698.25 570 / 570 Lab / Micro Data 05/05/24 05:15 05/05/24 05:15 Labs: Laboratory Results - last 24 hr 05/05/24 05:15: WBC 13.8 H, RBC 3.03 L, Hgb 7.6 L, Hct 24.5 L, MCV 80.9 L, MCH 25.1 L, MCHC 31.0 L, RDW Std Deviation 51.8 H, RDW Coeff of Genaro 17.5 H, Plt Count 460 H, MPV 9.5, Immature Gran % (Auto) 2.500 H, Neut % (Auto) 82.5 H, L ymph % (Auto) 5.4 L, Brooke % (Auto) 9.3, Eos % (Auto) 0.1, Baso % (Auto) 0.2, A bsolute Neuts (auto) 11.4 H, Absolute Lymphs (auto) 0.74 L, Nucleated RBC % 0.1, Differential Comment SCANNED, Sodium 138, Potassium 3.1 L, Chloride 102, Carbon Dioxide 30.0, Anion Gap 6, BUN 18, Creatinine 0.46 L, Estim Creat Clear Calc 48.34, Est GFR (MDRD) Af Amer 173, Est GFR (MDRD) Non-Af 143, BUN/Creatinine Ratio 39.0 H, Glucose 69 L, Calcium 7.4 L Micro: Microbiology 04/29/24 17:48 Sputum, Expectorated/Coughed Gram Stain - Final 04/29/24 17:48 Sputum, Expectorated/Coughed Respiratory Culture - Final Achromobacter denitrificans 05/01/24 09:00 Nasal Secretion SARS-CoV-2 Antigen (Rapid) - Final 04/26/24 17:32 Mucosa - Nose SARS-CoV-2, Influenza & RSV (PCR) - Final RSV ABG Data ABG results: ABG 05/04/24 18:43 Specimen Type ART Sample Site R Radial pH 7.37 Bicarbonate Actual 29.9 H Total CO2 32 Base Excess 5 H O2 Saturation 99 O2 % 100.0 ABG pCO2 52.3 H ABG pO2 163 H Luke Test Positive Respiration Rate 12 O2 Delivery Device BiPAP Vent Mode Not entered Tidal Volume 450.0 POC PEEP 14 Rhythm Strip Rhythm Strip: Sinus Tach Rate: 109 Ectopy: None Physical Exam Narrative Feeling a little better, dyspnea improved, no fever Const alert and no apparent distress Resp Effort and Inspection: uses accessory muscles Auscultation: diminished lung sounds Cardio regular rate and regular rhythm GI soft to palpation, non-tender and non-distended Skin no rashes or lesions noted Assessment & Plan Assessment/Plan (1) Asthma exacerbation in COPD: (2) Respiratory syncytial virus (RSV): (3) Pneumonia: PLAN: Plan 68-year-old with acute on chronic hypoxic respiratory failure due to RSV pneumonia, Achromobacter infection and COPD exacerbation * She is being managed by pulmonary and hospitalist service. * She was also discovered to have a significant iron deficiency anemia. Her hemoglobin is 6.9 with iron studies showing a saturation of 4.2, ferritin of 6. She also appears to have reactive possibly secondary thrombocytosis likely secondary to an upper GI bleed. She should undergo an upper endoscopy out upper GI tract. If that is negative then she will need to have colonoscopy. Patient noted by nursing staff to be delirious this evening and had slightly worsening oxygen requirements. ABG at 0253. ABG showed pH 7.40, pCO2 49, pO2 90 on 10 L high flow nasal cannula. Hemoglobin is 8.1 after blood transfusion. At this time she is not stable enough to undergo an upper endoscopy. Will try for tomorrow. Keep n.p.o. past midnight. 05/05/2024 -hemoglobin continues to trend down. Hemoglobin today 7.6 with a reactive thrombocytosis. The BUN is decreasing which is a good sign for possible upper GI bleed. Hopefully patient will be able to be stable enough to undergo an upper endoscopy tomorrow. Transfuse hemoglobin less than 7. Charges/Coding Visit Charges Inpatient E&M: 71406 Subs Hosp L3
--- NOTE | 2024-05-05 19:46 | PN.HOSP_ITS ---
Reason for Visit Reason for Visit: Diagnoses Other specified viral diseases (04/27/24) Iron deficiency anemia, unspecified (04/27/24) Pneumonia, unspecified organism (04/27/24) Chronic obstructive pulmonary disease with (acute) exacerbation (04/27/24) Acute and chronic respiratory failure with hypoxia (04/27/24) Subjective Subjective Patient was seen and examined today, she remains on high flow oxygen at this time, her potassium this morning was 3.1 and she was given oral potassium. Patient will have a repeat BMP drawn tomorrow morning. Objective Data Objective Data Vital Signs: Vital Signs Temp Pulse Resp BP Pulse Ox O2 Del Method O2 Flow Rate 97.1 F L 92 12 105/61 100 Airvo 60 05/05/24 19:41 05/05/24 19:41 05/05/24 19:41 05/05/24 19:41 05/05/24 19:41 05/05/24 19:41 05/05/24 19:41 FiO2 74 05/05/24 19:41 Oxygen Flow Rate (L/min) 60 Oxygen Delivery Method Airvo Weight: 51.3 kg Body Mass Index (BMI) 22.8 Intake & Output: Intake and Output for Last 24 Hours 05/03/24 05/04/24 05/05/24 23:59 23:59 23:59 Intake Total 1690.75 / 1690.75 1098.25 / 1098.25 970 / 970 Output Total 600 / 600 400 / 400 400 / 400 Balance 1090.75 / 1090.75 698.25 / 698.25 570 / 570 Lab / Micro Data 05/07/24 06:50 05/07/24 06:50 Labs: Laboratory Results - last 24 hr 05/05/24 05:15: WBC 13.8 H, RBC 3.03 L, Hgb 7.6 L, Hct 24.5 L, MCV 80.9 L, MCH 25.1 L, MCHC 31.0 L, RDW Std Deviation 51.8 H, RDW Coeff of Genaro 17.5 H, Plt Count 460 H, MPV 9.5, Immature Gran % (Auto) 2.500 H, Neut % (Auto) 82.5 H, L ymph % (Auto) 5.4 L, [place] % (Auto) 9.3, Eos % (Auto) 0.1, Baso % (Auto) 0.2, A bsolute Neuts (auto) 11.4 H, Absolute Lymphs (auto) 0.74 L, Nucleated RBC % 0.1, Differential Comment SCANNED, Sodium 138, Potassium 3.1 L, Chloride 102, Carbon Dioxide 30.0, Anion Gap 6, BUN 18, Creatinine 0.46 L, Estim Creat Clear Calc 48.34, Est GFR (MDRD) Af Amer 173, Est GFR (MDRD) Non-Af 143, BUN/Creatinine Ratio 39.0 H, Glucose 69 L, Calcium 7.4 L Micro: Microbiology 04/29/24 17:48 Sputum, Expectorated/Coughed Gram Stain - Final 04/29/24 17:48 Sputum, Expectorated/Coughed Respiratory Culture - Final Achromobacter denitrificans 05/01/24 09:00 Nasal Secretion SARS-CoV-2 Antigen (Rapid) - Final 04/26/24 17:32 Mucosa - Nose SARS-CoV-2, Influenza & RSV (PCR) - Final RSV Radiography Diagnostic Testing: Radiology Impression Chest X-Ray 05/05/24 10:41 IMPRESSION: Stable portable chest x-ray with bibasilar atelectatic/fibrotic changes. No acute consolidative process. Electronically Signed: Lucian Fletcher MD at 17:10 EST , Rhythm Strip Rhythm Strip: Sinus Tach Rate: 109 Ectopy: None Physical Exam Narrative alert, oriented x3 and no apparent distress General Appearance: cooperative, well kempt and well developed Orientation / Consciousness: awake, oriented to person, oriented to place and oriented to time HEENT normocephalic, head/scalp atraumatic and moist oral mucous membranes Eyes PERRL, EOMs intact bilaterally and conjunctivae normal Neck supple, no JVD, thyroid normal and no carotid bruits General: trachea midline Resp normal respiratory effort, no retractions, no use of accessory muscles and clear to auscultation bilaterally Auscultation: Negative for rales, rhonchi or wheezes Cardio regular rate, regular rhythm, S1 normal heart sound, S2 normal heart sound, no murmurs, no rub and no gallops GI normal to inspection, nondistended, normoactive bowel sounds, soft to palpation, non-tender and non-distended Extremity no clubbing, cyanosis or edema Skin no rashes or lesions noted General Skin Exam: no breakdown Neuro oriented x3, CN's II-XII intact bilaterally, moves all extremities, no focal motor deficits and no sensory deficits noted Sensorium / Orientation: awake and alert Speech: speech normal Psych affect normal Assessment & Plan Assessment/Plan (1) RSV infection: PLAN: Plan 1. Acute on chronic hypoxic respiratory failure-related to COPD exacerbation and RSV infection on a backdrop of gram-negative pneumonia-patient will continue antibiotics per ID, continue bronchodilators and prednisone #2 acute exacerbation of COPD-patient is on bronchodilators and prednisone #3 RSV infection-continue prednisone and bronchodilators #4 gram-negative pneumonia-patient is on meropenem, it is recommended to continue through 05/08/2024 #5 hypothyroidism-continue Synthroid and liothyronine #6 essential hypertension-patient will remain on present medications #7 chronic severe protein and caloric malnutrition-as evidenced by unintentional weight loss of approximately 12% x 6 months and estimated intake less than 75% x 1 month-nutritional services is seeing patient, she will be receiving 120 cc Ensure clear with breakfast and dinner for now, after the patient has her EGD he will be changed to Ensure Plus HP with advance of her diet. #8 hypokalemia-potassium supplementation was given today, BMP will be rechecked tomorrow Total clinical time spent by myself dressing the patient's medical issues, reviewing all of her data, and collaborating with patient's care team: 35 minutes Charges/Coding Visit Charges Inpatient E&M: 48399 Subs Hosp L2
[2024-05-06] VITALS (31 sets, daily range): BP systolic 80–115; BP diastolic 27–68; PULSE 82–104; RESP 14–24; TEMP 36.1–36.4; O2SAT 89–100; BMI 23.0
[2024-05-06] MEDS: Ipratropium/Albuterol Sulfate 3 ML AMPUL.NEB INHALATION ×5 (02:52→19:01)
--- NOTE | 2024-05-06 08:32 | CPS ---
patient refused vest this am.
[2024-05-06] MEDS: Metoprolol Tartrate 25 MG Tablet PO (08:43)
[2024-05-06] MEDS: guaiFENesin 1,200 MG Tablet 1200 MG PO ×2 (08:43→20:17)
[2024-05-06] MEDS: LORazepam 1 MG Tablet PO (08:43)
[2024-05-06] MEDS: Ondansetron 4 MG/2 ML Vial IV ×2 (08:44→19:22)
[2024-05-06] MEDS: 0.9% Saline Lock 10 ML Syringe IV ×4 (08:45→19:25)
[2024-05-06 08:49] LABS: Absolute Lymphocyte Count 1.19 X10^3/uL (0.83-4.51); Absolute Neutrophil Count 11.7 X10^3/uL (2.0-7.7); Basophil# 0.06 X10^3/uL; Basophil% 0.4 % (0-1); Eosinophil# 0.02 X10^3/uL; Eosinophils% 0.1 % (0-5); Hematocrit 25.2 % (37-47); Hemoglobin 7.8 g/dL (12.0-15.0); Lymphocyte # 1.19 X10^3/ul (0.83-4.51); Mean Corpuscular Hgb 25.2 pg (27.0-32.0); Mean Corpuscular Volume 81.6 fL (81-99); Mean Platelet Vol. 9.4 fl (6.2-12.0); Monocyte# 1.48 X10^3/uL; Monocyte% 9.9 % (0-10); NRBC Flagged by Analyzer 0 % (0-5); Neutrophil # 11.73 X10^3/uL (2.7-7.7); Neutrophil % 78.9 % (47-70); Platelet Count 546 K/mm3 (150-450); RBC Distribution Width CV 18.1 % (11.6-14.6); RBC Distribution Width SD 53.8 fl (35.1-43.9); Red Blood Count 3.09 M/mm3 (4.2-5.4); White Blood Count 14.9 K/mm3 (4.4-11.0)
[2024-05-06] MEDS: Pantoprazole Sodium 40 MG in 0.9% Normal Saline (100mL MB+) 100 ML 330 MG IV ×2 (08:55→20:17)
[2024-05-06 09:07] LABS: Anion Gap 11 (5-15); BUN 14 mg/dL (7-18); BUN/Creat Ratio 24.3 RATIO (10-20); Calcium,Total 7.2 mg/dL (8.5-10.1); Chloride 103 mmol/L (98-107); Creatinine, Serum 0.58 mg/dL (0.55-1.02); EST Glomerular Filtration Rate 110 mL/min (>60); Est Glom Filt Rate - Afr Amer 133 mL/min (>60); Estimated Creatinine Clearance 48.34 ml/min; Glucose 80 mg/dL (74-106); Potassium 2.9 mmol/L (3.5-5.1); Sodium Level 142 mmol/L (136-145)
--- NOTE | 2024-05-06 10:59 | PCM.PN.INT ---
Assessment & Plan Assessment/Plan (1) Acute exacerbation of chronic obstructive pulmonary disease (COPD): PLAN: Plan RECOMMENDATIONS: 1. Continue scheduled bronchodilators and prednisone. 2. Continue antimicrobials with ID assistance. 3. Encourage incentive spirometer use and mobilize patient as tolerated. 4. Wean supplemental oxygen to maintain saturations at or above 90%. 5. Transfuse if hemoglobin drops below 7 g/dL. Continue PPI therapy. IMPRESSIONS: 1. Acute on chronic hypoxemic respiratory failure Clinical suspicion for COPD exacerbation related to RSV infection, with likely superimposed gram-negative pneumonia. The patient was initially initiated on Levaquin on April 29. Sputum culture was subsequently positive for 3+ Achromobacter, which was resistant to Levaquin. Given her multiple documented allergies, ID consultation was obtained. In the interim, we will plan to continue meropenem. CTA chest has ruled out pulmonary embolism. The patient does have a baseline supplemental oxygen requirement of 4 L/min. Continue scheduled bronchodilators and prednisone, as ordered. Encourage incentive spirometer use and mobilize patient as tolerated. 2. History of obstructive sleep apnea Continue nocturnal PAP therapy per home regimen. 3. History of hypothyroidism/hypertension/hyperlipidemia/depression/anxiety/anemia Complicates care, management, recovery and prognosis. Continue home medications as indicated. Continue to monitor blood counts and transfuse if hemoglobin drops below 7 g/dL. Gastroenterology is following with tentative plans for endoscopic evaluation. This note was generated with [employer] dictation software. It may contain incorrect words, spelling, and punctuation that were not noted in checking the note before signing. Subjective Subjective The patient was seen and examined at the bedside this morning. Events from the last 24 hours have been reviewed. The patient is currently afebrile, hemodynamically stable and maintaining appropriate oxygen saturations on 6 L/min via nasal cannula. White blood cell count is elevated at 15,000. Hemoglobin is relatively stable at 7.8 g/dL. Potassium is low at 2.9 with a normal creatinine. Objective Data Objective Data The patient's most recent lab work, culture data and imaging studies have all been personally reviewed. RSV PCR was positive on April 26. Preliminary sputum culture from April 29 is demonstrating growth of 3+ Achromobacter. Vital Signs: Vital Signs Temp Pulse Resp BP Pulse Ox O2 Del Method O2 Flow Rate 97.5 F L 104 H 24 H 105/51 L 93 High Flow 8 05/06/24 08:21 05/06/24 08:43 05/06/24 08:21 05/06/24 08:43 05/06/24 09:03 05/06/24 09:03 05/06/24 09:03 FiO2 59 05/06/24 02:15 Oxygen Flow Rate (L/min) 8 Oxygen Delivery Method High Flow Weight: 113 lb 15.664 oz Body Mass Index (BMI) 23.0 Intake & Output: Intake and Output for Last 24 Hours 05/04/24 05/05/24 05/06/24 23:59 23:59 23:59 Intake Total 1098.25 / 1098.25 1105 / 1205 245 / 245 Output Total 400 / 400 400 / 780 380 / 380 Balance 698.25 / 698.25 705 / 425 -135 / -135 Medical Nutrition Assessment Dietitian: Malnutrition Criteria Met Start: 04/29/24 16:07 Freq: Status: Active Protocol: Document 05/06/24 09:14 RMA (Rec: 05/06/24 09:15 RMA [id number]) Nutrition Malnutrition Evidence of Malnutrition Exists Yes Malnutrition (moderate): Chronic Malnutrition (unspecified) Severe pro/arcenio Evidenced By Suboptimal Energy Intake ( Severe),Weight Loss (Severe) Clinical Problem Chronic Disease or Condition Related Malnutrition Etiology severe pro-arcenio malnutrition in the context of chronic disease related to increased energy expenditure/COPD and altered GI function Signs/Symptoms as evidenced by unintentional weight loss of ~12% x 6 months and estimated intake <75% x > 1 month; currently NPO/clear liquids x day 2-3 for pending EGD Status Active Problem Recommendation Dietitian Recommendations/Changes Advance diet as tolerated s/p EGD to liberalized Regular diet. Will change ONS to 120mL ensure clear w/ breakfast and dinner for now; adjust to Ensure Plus HP s/p EGD as diet advanced to solid food. Lab / Micro Data Attestation: I reviewed the patient's lab results. 05/06/24 08:35 05/06/24 08:35 Labs: Laboratory Results - last 24 hr 05/06/24 08:35: WBC 14.9 H, RBC 3.09 L, Hgb 7.8 L, Hct 25.2 L, MCV 81.6, MCH 25.2 L, MCHC 31.0 L, RDW Std Deviation 53.8 H, RDW Coeff of Genaro 18.1 H, Plt Count 546 H, MPV 9.4, Immature Gran % (Auto) 2.700 H, Neut % (Auto) 78.9 H, Lymph % (Auto) 8.0 L, Jones % (Auto) 9.9, Eos % (Auto) 0.1, Baso % (Auto) 0.4, Absolute Neuts (auto) 11.7 H, Absolute Lymphs (auto) 1.19, Nucleated RBC % 0, Sodium 142, Potassium 2.9 L, Chloride 103, Carbon Dioxide 28.0, Anion Gap 11, BUN 14, Creatinine 0.58, Estim Creat Clear Calc 48.34, Est GFR (MDRD) Af Amer 133, Est GFR (MDRD) Non-Af 110, BUN/Creatinine Ratio 24.3 H, Glucose 80, Calcium 7.2 L Micro: Microbiology 04/29/24 17:48 Sputum, Expectorated/Coughed Gram Stain - Final 04/29/24 17:48 Sputum, Expectorated/Coughed Respiratory Culture - Final Achromobacter denitrificans 05/01/24 09:00 Nasal Secretion SARS-CoV-2 Antigen (Rapid) - Final 04/26/24 17:32 Mucosa - Nose SARS-CoV-2, Influenza & RSV (PCR) - Final RSV ABG Data ABG results: ABG 05/02/24 10:03 Specimen Type ART Sample Site R Radial pH 7.34 L Bicarbonate Actual 32.7 H Total CO2 35 Base Excess 7 H O2 Saturation 100 H O2 % 80.0 ABG pCO2 60.6 H ABG pO2 187 H Luke Test Positive Respiration Rate 12 O2 Delivery Device BiPAP Vent Mode BiLevel Tidal Volume 450.0 POC PEEP 12 Radiography Diagnostic Testing: Radiology Impression Chest X-Ray 05/05/24 10:41 IMPRESSION: Stable portable chest x-ray with bibasilar atelectatic/fibrotic changes. No acute consolidative process. Electronically Signed: Lucian Fletcher MD at 17:10 EST , Rhythm Strip Rhythm Strip: Sinus Tach Rate: 109 Ectopy: None Physical Exam Const alert, oriented x3 and no apparent distress Constitutional Narrative: Sitting in bedside recliner. Appears comfortable. General Appearance: cooperative HEENT normocephalic and head/scalp atraumatic Teeth and Gingiva: poor dentition Eyes EOMs intact bilaterally, conjunctivae normal and no scleral icterus Neck supple General: trachea midline Chest inspection of chest normal Resp Resp Narrative: BiPAP currently in place. Auscultation: diminished lung sounds; Negative for rales, rhonchi or wheezes Cardio regular rate and regular rhythm GI normal to inspection, nondistended, normoactive bowel sounds Extremity no clubbing, cyanosis or edema Skin no rashes or lesions noted Neuro CN's II-XII intact bilaterally, moves all extremities and no focal motor deficits Psych Mood & Affect: flat affect Charges/Coding Visit Charges Inpatient E&M: 02151 Subs Hosp L2
--- NOTE | 2024-05-06 11:06 | CPS ---
patient does not want to do the vest. she states that it hurts her.
[2024-05-06] MEDS: busPIRone 5 MG Tablet 10 MG PO ×2 (11:41→20:17)
[2024-05-06] MEDS: DULoxetine Hcl 60 MG Capsule PO ×2 (11:41→20:17)
[2024-05-06] MEDS: Sucralfate 1 GM Tablet PO ×2 (11:41→20:17)
[2024-05-06] MEDS: Clopidogrel Bisulfate 75 MG Tablet PO (11:41)
[2024-05-06] MEDS: Amitriptyline 10 MG Tablet PO (11:41)
[2024-05-06] MEDS: Furosemide 40 MG Tablet PO (11:41)
[2024-05-06] MEDS: Cholecalciferol (VIT D3) 25 MCG TABLET (1,000 UNITS) PO (11:41)
[2024-05-06] MEDS: predniSONE 20 MG Tablet 40 MG PO (11:41)
[2024-05-06] MEDS: Baclofen 10 MG Tablet PO (11:42)
[2024-05-06] MEDS: Meropenem 1 GM in 0.9% Normal Saline (100mL MB+) 100 ML IV ×2 (11:48→23:08)
[2024-05-06] MEDS: Potassium Chloride Oral Tablet 20 MEQ 60 MEQ PO (13:10)
--- NOTE | 2024-05-06 14:33 | PCM.PN.ID ---
Physical Exam Narrative Feeling better, breathing improved, no fever Const alert and no apparent distress General Appearance: cooperative Resp Auscultation: wheezes Cardio regular rate and regular rhythm GI soft to palpation, non-tender and non-distended Extremity General Extremity: Negative for edema ID ID: Route of nutrition/ use of supplements: [] Nutritional Intake: [] IV Site: [] Dolan Catheter: [] Assessment & Plan Assessment/Plan (1) Asthma exacerbation in COPD: (2) Respiratory syncytial virus (RSV): (3) Pneumonia: PLAN: Sputum cx with achromobacter. Levaquin changed to meropenem 05/02, will continue (7 days total planned with stop date 05/08). EGD planned Will follow
--- NOTE | 2024-05-06 15:06 | PCM.PRE.AN2 ---
ASA Classification* ASA Classification ASA Classification: 3 and E Assessment & Plan Anesthesia* Anesthesia Assessment Anesthesia Assessment: Discussed sedation and/or anesthesia options, risks, benefits, and alternatives with patient/parents/legal guardian/POA. Questions invited. The patient/parents/legal guardian/POA seems to understand and agrees to proceed with anesthesia plan. Reviewed the physical assessment, medical history, allergy history and patient home medications list prior to surgery/procedure/anesthetic and documented any changes. Performed airway and anesthesia risk assessments. Anesthesia Type Anesthesia Type: MAC History Source History Obtained from:: Patient and Chart Anesthesia Focused Assessment* Temperature: 97.5 F Pulse Rate: 82 Blood Pressure: 92/56 Respiratory Rate: 20 Pulse Ox: 94 Oxygen Delivery Method: Room Air Oxygen Flow Rate (L/min): 6 Fraction of Inspired Oxygen (FIO2): 59 Airway Assessment Mouth opens: >3 cm Mallampati Score: II Teeth Condition: Full (Full upper dentures is out.) and Partial (Lower partial dentures are out. Rest of the teeth are tight.) Neck Range of motion (ROM): Full ROM Focused Labs Anesthesia Preop lab: CBC WBC 14.9 K/mm3 (4.4-11.0) H 05/06/24 08:35 RBC 3.09 M/mm3 (4.2-5.4) L 05/06/24 08:35 Hgb 7.8 g/dL (12.0-15.0) L 05/06/24 08:35 Hct 25.2 % (37-47) L 05/06/24 08:35 Plt Count 546 K/mm3 (150-450) H 05/06/24 08:35 CHEMISTRY Potassium 2.9 mmol/L (3.5-5.1) L 05/06/24 08:35 Sodium 142 mmol/L (136-145) 05/06/24 08:35 Magnesium 2.0 mg/dL (1.6-2.6) 04/27/24 06:30 Phosphorus 2.4 mg/dL (2.5-4.9) L 04/27/24 06:30 BUN 14 mg/dL (7-18) 05/06/24 08:35 Creatinine 0.58 mg/dL (0.55-1.02) 05/06/24 08:35 Glucose 80 mg/dL (74-106) 05/06/24 08:35 POC Glucose 113 mg/dL (74-106) H 08/30/22 11:01 TSH 0.178 uIU/mL (0.358-3.740) L 04/11/24 16:21 COAG PT 13.5 SECONDS (11.7-14.9) 02/09/24 17:07 Pre-Assessment Diagnosis/Proposed Procedure Planned Operative Procedure(s): Esophagogastroduodenoscopy. 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 When Was Last Pacemaker Check QUESTION #4 FULL TEXT: You/Your Family Experience fever (hyperthermia) with Anesthesia Last Oral Intake Last Oral intake: Last Oral Intake NPO since 11:57 05/06/24 11:56 Meds taken in AM with sips of Yes 05/06/24 11:56 water? Meds patient instructed to see mar 05/06/24 11:56 take am of surgery PONV PONV - replenishment merchandising associate: PONV - replenishment merchandising associate Female HX of Motion Sickness HX of N/V After Surgery Non-Smoker Duration of Surgery greater than 60 minutes Number of Risk Factors PONV Score Height & Weight Height & Weight: Anesthesia: Height & Weight Height 4 ft 11 in 05/06/24 11:56 Weight: 51.7 kg 05/06/24 11:56 Body Mass Index (BMI) 23.0 05/06/24 11:56 Respiratory Assessment Respiratory Assessment - replenishment merchandising associate: Respiratory Tract Infection Hx - replenishment merchandising associate Hx Respiratory Tract Infection Yes: RSV 05/06/24 11:59 STOP Sleep Apnea STOP Sleep Apnea - replenishment merchandising associate: STOP Sleep Apnea - replenishment merchandising associate Hx Hypertension Yes 04/28/24 11:28 Hx Sleep Apnea Yes 04/26/24 21:46 CPAP Yes 04/26/24 21:46 BIPAP No 04/26/24 21:46 Do you snore loudly (louder than talking or can be heard Do you often feel tired/ fatigued/ sleepy during daytime? Has anyone observed you stop breathing during sleep? STOP Results Positive 04/26/24 21:46 QUESTION #5 FULL TEXT : Do you snore loudly (louder than talking or can be heard through closed doors)? 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 Specify any problems Hx of Preganancy in last 3 No 04/26/24 21:46 Months Nurse Filling Out Transfusion DREHENRIQUECK 04/26/24 21:46 & Questions: Date: 04/26/24 04/26/24 21:46 Time: 21:46 04/26/24 21:46 Patient unable to answer at this time (ie. confused, unrespo /Reproduction History /Reproductive History - replenishment merchandising associate: /Reproductive Hx- replenishment merchandising associate Hx Now No 05/06/24 11:59 Gestational Age (in weeks): EDC: Hx Hx Para Hx Section SAB No 05/06/24 11:59 Active Medications Active Medications: Current Medications Generic Name Dose Route Start Last Admin Trade Name Freq PRN Reason Stop Dose Admin Acetaminophen 650 mg 04/26/24 21:36 05/01/24 16:44 Acetaminophen 325 Mg Tablet PO 650 mg Q6H PRN PRN Administration Pain 1-10 Or Fever>100.7 Albuterol Sulfate 2.5 mg 04/26/24 21:36 04/28/24 17:10 Albuterol 2.5 Mg/3 Ml Vial.Neb. INHALATION 2.5 mg Q2H PRN PRN Administration SHORTNESS OF BREATH Albuterol/Ipratropium 3 ml 04/26/24 21:36 05/06/24 14:43 Ipratropium/Albuterol Sulfate 3 Ml Ampul.Neb INHALATION 3 ml Q4H.RT JESSICA Administration Amitriptyline HCl 10 mg 04/27/24 10:00 05/06/24 11:41 Amitriptyline 10 Mg Tablet PO 10 mg DAILY JESSICA Administration Atorvastatin Calcium 80 mg 04/26/24 22:00 05/05/24 21:45 Atorvastatin Calcium 80 Mg Tablet PO Not Given QHS JESSICA Baclofen 10 mg 04/27/24 10:00 05/06/24 11:42 Baclofen 10 Mg Tablet PO 10 mg DAILY JESSICA Administration Buspirone HCl 10 mg 04/26/24 22:00 05/06/24 11:41 Buspirone 5 Mg Tablet PO 10 mg BID JESSICA Administration Cholecalciferol 25 mcg 04/29/24 10:00 05/06/24 11:41 Cholecalciferol (Vit D3) 25 Mcg Tablet (1,000 Units) PO 25 mcg Fr@1000 JESSICA Administration Clopidogrel Bisulfate 75 mg 04/27/24 10:00 05/06/24 11:41 Clopidogrel Bisulfate 75 Mg Tablet PO 75 mg DAILY JESSICA Administration Duloxetine HCl 60 mg 04/26/24 22:00 05/06/24 11:41 Duloxetine Hcl 60 Mg Capsule PO 60 mg BID JESSICA Administration Furosemide 40 mg 04/29/24 10:00 05/06/24 11:41 Furosemide 40 Mg Tablet PO 40 mg DAILY JESSICA Administration Protocol Guaifenesin 1,200 mg 04/26/24 22:00 05/06/24 08:43 Guaifenesin 1,200 Mg Tablet PO 1,200 mg BID JESSICA Administration Hydroxyzine Pamoate 50 mg 04/26/24 22:00 05/05/24 21:46 Hydroxyzine Dominique 25 Mg Capsule PO Not Given QHS JESSICA Sodium Chloride 100 mls @ 15 mls/hr 04/26/24 21:37 05/06/24 05:53 IV 0 mls/hr .Q6H40M PRN Infusion Saline Flush Sodium Chloride 100 mls @ 15 mls/hr 04/26/24 21:37 05/03/24 15:34 IV Infused .Q6H40M PRN Infusion Additional IVPB Infusion Pantoprazole Sodium 40 mg/ 110 mls @ 330 mls/hr 05/03/24 10:00 05/06/24 11:56 Sodium Chloride IV Infused Q12 JESSICA Infusion Sodium Chloride 100 mls @ 15 mls/hr 05/03/24 09:43 IV .Q6H40M PRN SALINE FLUSH Sodium Chloride 100 mls @ 15 mls/hr 05/03/24 09:43 IV .Q6H40M PRN Saline Flush Sodium Chloride 100 mls @ 15 mls/hr 05/03/24 09:43 IV .Q6H40M PRN Additional IVPB Infusion Meropenem 1 gm/ Sodium 120 mls @ 33 mls/hr 05/04/24 23:00 05/06/24 11:48 Chloride IV 33 mls/hr Q12H JESSICA Administration Levothyroxine Sodium 75 mcg 04/27/24 06:00 05/06/24 05:13 Levothyroxine 75 Mcg Tablet PO Not Given [id number] JESSICA Levothyroxine Sodium 50 mcg 04/30/24 06:00 05/01/24 05:42 Levothyroxine 50 Mcg Tablet PO 50 mcg [id number]@0600 JESSICA Administration Liothyronine Sodium 10 mcg 04/27/24 06:00 05/06/24 05:13 Liothyronine 5 Mcg Tablet PO Not Given DAILY@0600 JESSICA Lorazepam 1 mg 04/26/24 21:36 05/06/24 08:43 Lorazepam 1 Mg Tablet PO 1 mg TID PRN PRN Administration Anxiety Melatonin 3 mg 04/26/24 21:36 05/04/24 23:59 Melatonin 3 Mg Tablet PO 3 mg QHS PRN PRN Administration INSOMNIA Metoprolol Tartrate 25 mg 04/26/24 22:00 05/06/24 08:43 Metoprolol Tartrate 25 Mg Tablet PO 25 mg Q12 JESSICA Administration Protocol Mirtazapine 15 mg 04/26/24 22:00 05/05/24 21:46 Mirtazapine 15 Mg Tablet PO Not Given QHS JESSICA Montelukast Sodium 10 mg 04/27/24 21:00 05/05/24 21:45 Montelukast 10 Mg Tablet PO Not Given QPM JESSICA Ondansetron HCl 4 mg 04/26/24 21:36 05/06/24 08:44 Ondansetron 4 Mg/2 Ml Vial IV 4 mg Q8H PRN PRN Administration NAUSEA/VOMITING Prednisone 40 mg 05/04/24 08:00 05/06/24 11:41 Prednisone 20 Mg Tablet PO 40 mg BREAKFAST JESSICA Administration Risperidone 1 mg 05/01/24 23:21 05/05/24 21:46 Risperidone 1 Mg Tablet PO Not Given QHS [facility] Protocol Senna/Docusate Sodium 2 tablet 04/26/24 21:36 Senna/Docusate Sodium 1 Tablet PO BID PRN PRN Constipation Sodium Chloride 10 - 40 ml 04/26/24 21:37 05/06/24 11:42 0.9% Saline Lock 10 Ml Syringe IV 10 ml UD PRN Administration SALINE FLUSH Sucralfate 1 gm 04/26/24 22:00 05/06/24 11:41 Sucralfate 1 Gm Tablet PO 1 gm 1HR_ACHS JESSICA Administration Topiramate 50 mg 04/26/24 22:00 05/05/24 21:46 Topiramate 50 Mg Tablet PO Not Given QHS JESSICA PFSH Medical History Acute exacerbation of chronic obstructive pulmonary disease (COPD) PTSD (post-traumatic stress disorder) Hyperthyroidism GI bleed Former smoker CPAP (continuous positive airway pressure) dependence On home oxygen therapy Myocardial infarct Congestive heart failure (CHF) Migraines Fall Contusion of nose Periorbital contusion of right eye Contusion of multiple fingers Chronic hypoxic respiratory failure Contusion of scalp Normocytic anemia Fibromyalgia Chronic respiratory failure with hypoxia RAUL (obstructive sleep apnea) Incisional hernia TIA (transient ischemic attack) Osteoporosis Osteoarthritis Thyroid disorder Diverticulitis History of heart attack Sleep apnea History of pneumonia COPD (chronic obstructive pulmonary disease) History of bronchitis Asthma HTN (hypertension) Depression Anxiety Nausea and vomiting GERD (gastroesophageal reflux disease) Heart disease spinal stimulator Spinal stenosis Chronic back pain Hypothyroidism Home Medications ?Medication ?Instructions ?Recorded ?Last Taken ?Type atorvastatin 80 mg tablet 80 mg PO QHS cholesterol 06/01/13 05/25/14 History 80 MG clopidogrel 75 mg tablet 75 mg PO DAILY anti platelet 06/01/13 11/18/23 History lorazepam 1 mg tablet (Ativan) 1 mg PO TID PRN Anxiety 11/17/18 Unknown History duloxetine 60 mg capsule,delayed 60 mg PO BID DEPRESSION 06/19/20 Unknown History release furosemide 40 mg tablet 40 mg PO DAILY water pill 08/23/22 Unknown History liothyronine 5 mcg tablet 10 mcg PO DAILY HYPOTHYROIDISM 08/23/22 Unknown History pantoprazole 40 mg tablet,delayed 40 mg PO BID ACID REFLEX 30 days 05/06/23 Unknown Rx release #60 tabs baclofen 10 mg tablet 10 mg PO DAILY SPASMS 10/09/23 Unknown History cholecalciferol (vitamin D3) 25 25 mcg PO .WEEKLY SUPPLEMENT 10/09/23 Unknown History mcg (1,000 unit) capsule metoprolol tartrate 25 mg tablet 25 mg PO Q12H blood pressure 10/09/23 Unknown History acetaminophen 500 mg tablet 500 mg PO Q6H PRN pain 11/05/23 Unknown History tiotropium bromide 2.5 2 inh inhalation DAILY LUNGS #3 ea 02/02/24 Unknown Rx mcg/actuation mist for inhalation (Spiriva Respimat) buspirone 10 mg tablet 10 mg PO BID ANXIETY 02/09/24 Unknown History diclofenac sodium 75 mg 75 mg PO BID see phyisican 02/09/24 Unknown History tablet,delayed release sucralfate 100 mg/mL oral 10 ml PO ACHS FOR STOMACH 02/09/24 Unknown History suspension topiramate 50 mg tablet 50 mg PO QHS SLEEP 02/09/24 Unknown History montelukast 10 mg tablet 10 mg PO QPM SEE PCP #90 tabs 02/15/24 Unknown Rx mirtazapine 15 mg tablet 15 mg PO QHS sleep #30 tabs 03/01/24 Unknown Rx albuterol sulfate 90 mcg/actuation 2 puff inhalation Q4H PRN COPD 03/11/24 Unknown History aerosol inhaler amitriptyline 10 mg tablet 10 mg PO DAILY nerve pain 03/11/24 Unknown History cyclobenzaprine 5 mg tablet 5 mg PO Q8H PRN muscle spasms 03/11/24 Unknown History furosemide 20 mg tablet 20 mg PO DAILY water pill 03/11/24 Unknown History hydroxyzine HCl 50 mg tablet 50 mg PO QHS 03/11/24 Unknown History ipratropium 0.5 mg-albuterol 3 mg 3 ml inhalation .Q4-6H PRN 03/11/24 Unknown History (2.5 mg base)/3 mL nebulization shortness of breath or wheezing soln levothyroxine 50 mcg tablet 50 mcg PO SUSA thyroid 03/11/24 Unknown History levothyroxine 75 mcg tablet 75 mcg PO MOTUWETHFR THYROID 03/11/24 Unknown History levofloxacin 750 mg tablet 750 mg PO DAILY PROPHYLAXIS #7 tabs 03/31/24 Unknown Rx mometasone-formoterol HFA 200 2 puff inhalation BID COPD 04/26/24 Unknown History mcg-5 mcg/actuation aerosol inhaler (Dulera) temazepam 30 mg capsule 30 mg PO QHS PRN PRN sleep 04/26/24 Unknown History Allergy/AdvReac Type Severity Reaction Status Date / Time cefaclor (From [facility]) Allergy Itching Verified 05/06/24 15:14 clarithromycin Allergy Hives Verified 05/06/24 15:14 doxycycline Allergy Itching Verified 05/06/24 15:14 Penicillins Allergy Hives Verified 05/06/24 15:14 Sulfa (Sulfonamide Allergy Hives Verified 05/06/24 15:14 Antibiotics) biotin AdvReac Unknown Unknown Verified 05/06/24 15:14 zolpidem (From Ambien) AdvReac Unknown mental Verified 05/06/24 15:14 issues Family History Father Asthma Heart disease Grandmother Breast cancer Diabetes Mother Heart disease COPD (chronic obstructive pulmonary disease) Other Cancer Surgical History Hx of BKA History of appendectomy History of incisional hernia repair History of incisional hernia repair (~12/20/18) Hx of cholecystectomy History of esophagogastroduodenoscopy (EGD) (~07/2018) Previous back surgery S/P hysterectomy S/P carpal tunnel release S/P knee surgery S/P correction of deviated nasal septum Status post thyroidectomy H/O heart artery stent Status post amputation of right foot Social History household members: spouse Smoking Status: Former smoker Tobacco: How many years used: 25 second hand exposure: Yes alcohol intake: never substance use type: does not use caffeine: Yes what type of physical activity do you participate in: none frequency: does not exercise Review of Systems (Anesthesia) ROS Narrative System reviewed and no additional complaints, except as documented.
--- NOTE | 2024-05-06 16:40 | OP.EGD_ITS ---
Patient Name: Codi Owen Procedure Date: 05/06/2024 4:17 PM Date of : 1955 Age: 68 Procedure: Upper GI endoscopy Indications: Iron deficiency anemia Providers: Sree Diggs DO Medicines: Monitored Anesthesia Care Patient Profile: This is a 68 year old female. Refer to note in patient chart for documentation of history and physical. Patient has symptoms of acute cough. Complications: No immediate complications. Procedure: Pre-Anesthesia Assessment: - Prior to the procedure, a History and Physical was performed, and patient medications and allergies were reviewed. The patient is competent. The risks and benefits of the procedure and the sedation options and risks were discussed with the patient. All questions were answered and informed consent was obtained. Patient identification and proposed procedure were verified by the physician in the pre-procedure area. Mental Status Examination: alert and oriented. Airway Examination: normal oropharyngeal airway and neck mobility. Respiratory Examination: clear to auscultation. CV Examination: normal. Prophylactic Antibiotics: The patient does not require prophylactic antibiotics. Prior Anticoagulants: The patient has taken no anticoagulant or antiplatelet agents except for NSAID medication. ASA Grade Assessment: II - A patient with mild systemic disease. After reviewing the risks and benefits, the patient was deemed in satisfactory condition to undergo the procedure. The anesthesia plan was to use monitored anesthesia care (MAC). Immediately prior to administration of medications, the patient was re-assessed for adequacy to receive sedatives. The heart rate, respiratory rate, oxygen saturations, blood pressure, adequacy of pulmonary ventilation, and response to care were monitored throughout the procedure. The physical status of the patient was re-assessed after the procedure. After obtaining informed consent, the endoscope was passed under direct vision. Throughout the procedure, the patient's blood pressure, pulse, and oxygen saturations were monitored continuously. The Endoscope was introduced through the mouth, and advanced to the second part of duodenum. The upper GI endoscopy was accomplished without difficulty. The patient tolerated the procedure well. Scope In: 4:36:18 PM Scope Out: 4:37:48 PM Total Procedure Duration Time 0 hours 1 minute 30 seconds Findings: The examined esophagus was normal. A medium amount of food (residue) was found in the gastric body. No gross lesions were noted in the second portion of the duodenum. Impression: - Normal esophagus. - A medium amount of food (residue) in the stomach. - No gross lesions in the second portion of the duodenum. - No specimens collected. Recommendation: - Return patient to [facility] for ongoing care. - Resume regular diet. - Continue present medications. Procedure Code(s): --- Professional --- 72147, Esophagogastroduodenoscopy, flexible, transoral; diagnostic, including collection of specimen(s) by brushing or washing, when performed (separate procedure) CPT copyright 2021 [employer]. All rights reserved. The codes documented in this report are preliminary and upon cellar supervisor review may be revised to meet current compliance requirements. Sree Diggs DO 05/06/2024 4:40:38 PM This report has been signed electronically. Number of Addenda: 0 Note Initiated On: 05/06/2024 4:17 PM
--- NOTE | 2024-05-06 16:41 | OP.CCLET_ITS ---
05/06/2024 Chrystal Michel [address] [facility] [place] [address] Re : Upper GI endoscopy procedure for Codi Serranokb Dear Dr. Michel This procedure was performed on Monday, May 06, 2024. My impressions and recommendations are as follows: Impressions : - Normal esophagus. - A medium amount of food (residue) in the stomach. - No gross lesions in the second portion of the duodenum. - No specimens collected. Recommendations : - Return patient to [facility] for ongoing care. - Resume regular diet. - Continue present medications. My findings are described in the full procedure note, which is enclosed. If I can be of further assistance, please feel free to contact me at . Sincerely, Sree Diggs, 05/06/2024 4:40:38 PM This report has been signed electronically.
--- NOTE | 2024-05-06 16:50 | PCM.POST.ANE ---
Anesthesia: Postop Eval I Current Vital Signs Temperature: 97 F Pulse Rate: 91 Blood Pressure: 92/56 Respiratory Rate: 20 Pulse Ox: 94 Oxygen Delivery Method: Nasal Cannula Oxygen Flow Rate (L/min): 6 Assessment Airway patent: Yes Spontaneous unlabored respirations: Yes Mental status: Awake and Calm nausea: No Vomiting: No Anesthesia Complication: No Fluid Hydration Crystalloid volume administer (ml): 30 Total IV fluid infused: 30 Progress Note Anesthesia document: Postop Eval 1 completed: Yes
--- NOTE | 2024-05-06 18:43 | PN.HOSP_ITS ---
Reason for Visit Reason for Visit: Diagnoses Other specified viral diseases (04/27/24) Iron deficiency anemia, unspecified (04/27/24) Pneumonia, unspecified organism (04/27/24) Chronic obstructive pulmonary disease with (acute) exacerbation (04/27/24) Acute and chronic respiratory failure with hypoxia (04/27/24) Subjective Subjective Patient was seen and examined today, she underwent an EGD today which did not show anything significant. Patient is currently on 4 L of oxygen via nasal cannula. Objective Data Objective Data Vital Signs: Vital Signs Temp Pulse Resp BP Pulse Ox O2 Del Method O2 Flow Rate 97.6 F L 87 18 90/53 L 93 Nasal Cannula 4 05/06/24 17:43 05/06/24 17:43 05/06/24 17:43 05/06/24 17:43 05/06/24 17:43 05/06/24 17:43 05/06/24 17:43 FiO2 59 05/06/24 15:17 Oxygen Flow Rate (L/min) 4 Oxygen Delivery Method Nasal Cannula Weight: 51.7 kg Body Mass Index (BMI) 23.0 Intake & Output: Intake and Output for Last 24 Hours 05/04/24 05/05/24 05/06/24 23:59 23:59 23:59 Intake Total 1098.25 / 1098.25 1105 / 1205 1675 / 1675 Output Total 400 / 400 400 / 780 1180 / 1180 Balance 698.25 / 698.25 705 / 425 495 / 495 Medical Nutrition Assessment Dietitian: Malnutrition Criteria Met Start: 04/29/24 16:07 Freq: Status: Active Protocol: Document 05/06/24 09:14 RMA (Rec: 05/06/24 09:15 RMA [id number]) Nutrition Malnutrition Evidence of Malnutrition Exists Yes Malnutrition (moderate): Chronic Malnutrition (unspecified) Severe pro/arcenio Evidenced By Suboptimal Energy Intake ( Severe),Weight Loss (Severe) Clinical Problem Chronic Disease or Condition Related Malnutrition Etiology severe pro-arcenio malnutrition in the context of chronic disease related to increased energy expenditure/COPD and altered GI function Signs/Symptoms as evidenced by unintentional weight loss of ~12% x 6 months and estimated intake <75% x > 1 month; currently NPO/clear liquids x day 2-3 for pending EGD Status Active Problem Recommendation Dietitian Recommendations/Changes Advance diet as tolerated s/p EGD to liberalized Regular diet. Will change ONS to 120mL ensure clear w/ breakfast and dinner for now; adjust to Ensure Plus HP s/p EGD as diet advanced to solid food. Lab / Micro Data 05/07/24 06:50 05/07/24 06:50 Labs: Laboratory Results - last 24 hr 05/06/24 08:35: WBC 14.9 H, RBC 3.09 L, Hgb 7.8 L, Hct 25.2 L, MCV 81.6, MCH 25.2 L, MCHC 31.0 L, RDW Std Deviation 53.8 H, RDW Coeff of Genaro 18.1 H, Plt Count 546 H, MPV 9.4, Immature Gran % (Auto) 2.700 H, Neut % (Auto) 78.9 H, L ymph % (Auto) 8.0 L, [place] % (Auto) 9.9, Eos % (Auto) 0.1, Baso % (Auto) 0.4, A bsolute Neuts (auto) 11.7 H, Absolute Lymphs (auto) 1.19, Nucleated RBC % 0, Sodium 142, Potassium 2.9 L, Chloride 103, Carbon Dioxide 28.0, Anion Gap 11, BUN 14, Creatinine 0.58, Estim Creat Clear Calc 48.34, Est GFR (MDRD) Af Amer 133, Est GFR (MDRD) Non-Af 110, BUN/Creatinine Ratio 24.3 H, Glucose 80, Calcium 7.2 L Micro: Microbiology 04/29/24 17:48 Sputum, Expectorated/Coughed Gram Stain - Final 04/29/24 17:48 Sputum, Expectorated/Coughed Respiratory Culture - Final Achromobacter denitrificans 05/01/24 09:00 Nasal Secretion SARS-CoV-2 Antigen (Rapid) - Final 04/26/24 17:32 Mucosa - Nose SARS-CoV-2, Influenza & RSV (PCR) - Final RSV Rhythm Strip Rhythm Strip: Sinus Tach Rate: 109 Ectopy: None Physical Exam Const alert, oriented x3 and no apparent distress General Appearance: cooperative, well kempt and well developed Orientation / Consciousness: awake, oriented to person, oriented to place and oriented to time HEENT normocephalic, head/scalp atraumatic and moist oral mucous membranes Eyes PERRL, EOMs intact bilaterally and conjunctivae normal Neck supple, no JVD, thyroid normal and no carotid bruits General: trachea midline Resp normal respiratory effort, no retractions, no use of accessory muscles and clear to auscultation bilaterally Auscultation: Negative for rales, rhonchi or wheezes Cardio regular rate, regular rhythm, S1 normal heart sound, S2 normal heart sound, no murmurs, no rub and no gallops GI normal to inspection, nondistended, normoactive bowel sounds, soft to palpation, non-tender and non-distended Extremity no clubbing, cyanosis or edema Skin no rashes or lesions noted General Skin Exam: no breakdown Neuro oriented x3, CN's II-XII intact bilaterally, moves all extremities, no focal motor deficits and no sensory deficits noted Sensorium / Orientation: awake and alert Speech: speech normal Psych affect normal Assessment & Plan Assessment/Plan (1) RSV infection: PLAN: Plan 1. Acute on chronic hypoxic respiratory failure-related to COPD exacerbation and RSV infection on a backdrop of gram-negative pneumonia-patient will continue antibiotics per ID, continue bronchodilators and prednisone #2 acute exacerbation of COPD-patient is on bronchodilators and prednisone #3 RSV infection-continue prednisone and bronchodilators #4 gram-negative pneumonia-patient is now on meropenem, it is recommended to continue through 05/08/2024 #5 hypothyroidism-continue Synthroid and liothyronine #6 essential hypertension-patient will remain on present medications Total clinical time spent by myself dressing the patient's medical issues, reviewing all of her data, and collaborating with patient's care team: 35 minutes Charges/Coding Visit Charges Inpatient E&M: 99450 Subs Hosp L2
[2024-05-06] MEDS: RisperiDONE 1 MG Tablet PO (20:16)
[2024-05-06] MEDS: Atorvastatin Calcium 80 MG Tablet PO (20:17)
[2024-05-06] MEDS: Topiramate 50 MG Tablet PO (20:17)
[2024-05-06] MEDS: Montelukast 10 MG Tablet PO (20:17)
[2024-05-06] MEDS: hydrOXYzine PAM 25 MG Capsule 50 MG PO (20:17)
[2024-05-06] MEDS: Mirtazapine 15 MG Tablet PO (20:17)
--- NOTE | 2024-05-06 21:51 | POSTOPAN2_ITS ---
Anesthesia Postop Eval I Sum Postop Eval Completion status Anesthesia document: Postop Eval 1 completed: Yes Anesthesia Postop Eval I Summary Anesthesia Postop Eval I Summary: Anesthesia Postop Eval I: Assessment Summary Airway patent Yes 05/06/24 16:51 [email or web address] Spontaneous unlabored Yes 05/06/24 16:51 REGISTERED [email or web address] respirations Mental status Awake,Calm 05/06/24 16:51 REGISTERED [email or web address] nausea No 05/06/24 16:51 REGISTERED [email or web address] Vomiting No 05/06/24 16:51 REGISTERED [email or web address] Anesthesia Postop Eval I: Fluid Summary Crystalloid volume administer 30 05/06/24 16:51 REGISTERED [email or web address] (ml) Colloids volume administered ( ml) Blood Product volume administered (ml) Total IV fluid infused 30 05/06/24 16:51 REGISTERED [email or web address] Anesthesia Postop Eval I: Summary Notes Anesthesia Complication No 05/06/24 16:51 REGISTERED [email or web address] Anesthesia Complication Comment: Post-operative progress note Anesthesia: Postop Eval II Evaluation Mental status: Awake and Calm Pain Level: 0 nausea: No Vomiting: No Complications Anesthesia Complication: No
--- NOTE | 2024-05-06 21:51 | PCM.POSTANE2 ---
Anesthesia Postop Eval I Sum Postop Eval Completion status Anesthesia document: Postop Eval 1 completed: Yes Anesthesia Postop Eval I Summary Anesthesia Postop Eval I Summary: Anesthesia Postop Eval I: Assessment Summary Airway patent Yes 05/06/24 16:51 [email or web address] [email or web address] Spontaneous unlabored Yes 05/06/24 16:51 APPLICATION [email or web address] respirations Mental status Awake,Calm 05/06/24 16:51 APPLICATION [email or web address] nausea No 05/06/24 16:51 APPLICATION [email or web address] Vomiting No 05/06/24 16:51 [email or web address] [email or web address] Anesthesia Postop Eval I: Fluid Summary Crystalloid volume administer 30 05/06/24 16:51 APPLICATION [email or web address] (ml) Colloids volume administered ( ml) Blood Product volume administered (ml) Total IV fluid infused 30 05/06/24 16:51 [email or web address] [email or web address] Anesthesia Postop Eval I: Summary Notes Anesthesia Complication No 05/06/24 16:51 APPLICATION [email or web address] Anesthesia Complication Comment: Post-operative progress note Anesthesia: Postop Eval II Evaluation Mental status: Awake and Calm Pain Level: 0 nausea: No Vomiting: No Complications Anesthesia Complication: No
[2024-05-07] VITALS (10 sets, daily range): BP systolic 99–116; BP diastolic 56–61; PULSE 87–100; RESP 12–20; TEMP 36.3–36.8; O2SAT 85–96; BMI 22.5
[2024-05-07] MEDS: Levothyroxine 50 MCG Tablet PO (05:41)
[2024-05-07] MEDS: Liothyronine 5 MCG Tablet 10 MCG PO (05:41)
[2024-05-07] MEDS: Sucralfate 1 GM Tablet PO ×4 (05:41→21:35)
[2024-05-07 07:17] LABS: Hematocrit 25.6 % (37-47); Hemoglobin 7.6 g/dL (12.0-15.0)
[2024-05-07] MEDS: Ipratropium/Albuterol Sulfate 3 ML AMPUL.NEB INHALATION ×3 (07:21→19:40)
[2024-05-07 07:45] LABS: Anion Gap 5 (5-15); BUN 13 mg/dL (7-18); BUN/Creat Ratio 24.6 RATIO (10-20); Chloride 103 mmol/L (98-107); Creatinine, Serum 0.53 mg/dL (0.55-1.02); EST Glomerular Filtration Rate 122 mL/min (>60); Est Glom Filt Rate - Afr Amer 148 mL/min (>60); Estimated Creatinine Clearance 48.34 ml/min; Glucose 86 mg/dL (74-106); Potassium 4.4 mmol/L (3.5-5.1); Sodium Level 137 mmol/L (136-145)
[2024-05-07] MEDS: Pantoprazole Sodium 40 MG in 0.9% Normal Saline (100mL MB+) 100 ML 330 MG IV ×2 (09:58→19:56)
[2024-05-07] MEDS: predniSONE 20 MG Tablet 40 MG PO (10:00)
[2024-05-07] MEDS: Clopidogrel Bisulfate 75 MG Tablet PO (10:05)
[2024-05-07] MEDS: DULoxetine Hcl 60 MG Capsule PO ×2 (10:05→21:35)
[2024-05-07] MEDS: busPIRone 5 MG Tablet 10 MG PO ×2 (10:05→21:35)
[2024-05-07] MEDS: Metoprolol Tartrate 25 MG Tablet PO (10:05)
[2024-05-07] MEDS: Amitriptyline 10 MG Tablet PO (10:05)
[2024-05-07] MEDS: Baclofen 10 MG Tablet PO (10:05)
[2024-05-07] MEDS: guaiFENesin 1,200 MG Tablet 1200 MG PO ×2 (10:06→21:34)
[2024-05-07] MEDS: Furosemide 40 MG Tablet PO (10:07)
[2024-05-07] MEDS: Meropenem 1 GM in 0.9% Normal Saline (100mL MB+) 100 ML IV ×2 (10:19→22:53)
[2024-05-07] MEDS: Ondansetron 4 MG/2 ML Vial IV (11:29)
--- NOTE | 2024-05-07 14:45 | CPS ---
patient refusing chest vest today due to back pain.
[2024-05-07] MEDS: LORazepam 1 MG Tablet PO (16:00)
--- NOTE | 2024-05-07 18:25 | PN.HOSP_ITS ---
Reason for Visit Reason for Visit: Diagnoses Other specified viral diseases (04/27/24) Iron deficiency anemia, unspecified (04/27/24) Pneumonia, unspecified organism (04/27/24) Chronic obstructive pulmonary disease with (acute) exacerbation (04/27/24) Acute and chronic respiratory failure with hypoxia (04/27/24) Subjective Subjective Patient was seen and examined today, she is on 4 L of oxygen via nasal cannula. Patient's hemoglobin today was 7.6. Objective Data Objective Data Vital Signs: Vital Signs Temp Pulse Resp BP Pulse Ox O2 Del Method O2 Flow Rate 98.3 F 87 20 H 108/56 L 91 Nasal Cannula 4 05/07/24 14:34 05/07/24 14:44 05/07/24 14:44 05/07/24 14:34 05/07/24 14:34 05/07/24 14:34 05/07/24 14:34 FiO2 59 05/06/24 15:17 Oxygen Flow Rate (L/min) 4 Oxygen Delivery Method Nasal Cannula Weight: 50.6 kg Body Mass Index (BMI) 22.5 Intake & Output: Intake and Output for Last 24 Hours 05/05/24 05/06/24 05/07/24 23:59 23:59 23:59 Intake Total 1105 / 1205 1785 / 1785 590 / 590 Output Total 400 / 780 1180 / 1680 1000 / 1000 Balance 705 / 425 605 / 105 -410 / -410 Medical Nutrition Assessment Dietitian: Malnutrition Criteria Met Start: 04/29/24 16:07 Freq: Status: Active Protocol: Document 05/06/24 09:14 RMA (Rec: 05/06/24 09:15 RMA [id number]) Nutrition Malnutrition Evidence of Malnutrition Exists Yes Malnutrition (moderate): Chronic Malnutrition (unspecified) Severe pro/arcenio Evidenced By Suboptimal Energy Intake ( Severe),Weight Loss (Severe) Clinical Problem Chronic Disease or Condition Related Malnutrition Etiology severe pro-arcenio malnutrition in the context of chronic disease related to increased energy expenditure/COPD and altered GI function Signs/Symptoms as evidenced by unintentional weight loss of ~12% x 6 months and estimated intake <75% x > 1 month; currently NPO/clear liquids x day 2-3 for pending EGD Status Active Problem Recommendation Dietitian Recommendations/Changes Advance diet as tolerated s/p EGD to liberalized Regular diet. Will change ONS to 120mL ensure clear w/ breakfast and dinner for now; adjust to Ensure Plus HP s/p EGD as diet advanced to solid food. Lab / Micro Data 05/07/24 06:50 05/07/24 06:50 Labs: Laboratory Results - last 24 hr 05/07/24 06:50: Hgb 7.6 L, Hct 25.6 L, Sodium 137, Potassium 4.4, Chloride 103, Carbon Dioxide 29.0, Anion Gap 5, BUN 13, Creatinine 0.53 L, Estim Creat Clear Calc 48.34, Est GFR (MDRD) Af Amer 148, Est GFR (MDRD) Non-Af 122, B UN/Creatinine Ratio 24.6 H, Glucose 86, Calcium 7.0 L Micro: Microbiology 04/29/24 17:48 Sputum, Expectorated/Coughed Gram Stain - Final 04/29/24 17:48 Sputum, Expectorated/Coughed Respiratory Culture - Final Achromobacter denitrificans 05/01/24 09:00 Nasal Secretion SARS-CoV-2 Antigen (Rapid) - Final 04/26/24 17:32 Mucosa - Nose SARS-CoV-2, Influenza & RSV (PCR) - Final RSV Rhythm Strip Rhythm Strip: Sinus Tach Rate: 109 Ectopy: None Physical Exam Narrative alert, oriented x3 and no apparent distress General Appearance: cooperative, well kempt and well developed Orientation / Consciousness: awake, oriented to person, oriented to place and oriented to time HEENT normocephalic, head/scalp atraumatic and moist oral mucous membranes Eyes PERRL, EOMs intact bilaterally and conjunctivae normal Neck supple, no JVD, thyroid normal and no carotid bruits General: trachea midline Resp normal respiratory effort, no retractions, no use of accessory muscles and clear to auscultation bilaterally Auscultation: Negative for rales, rhonchi or wheezes Cardio regular rate, regular rhythm, S1 normal heart sound, S2 normal heart sound, no murmurs, no rub and no gallops GI normal to inspection, nondistended, normoactive bowel sounds, soft to palpation, non-tender and non-distended Extremity no clubbing, cyanosis or edema, 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 Acute on chronic hypoxic respiratory failure-related to COPD exacerbation and RSV infection on a backdrop of gram-negative pneumonia-patient will continue antibiotics per ID, continue bronchodilators and prednisone #2 acute exacerbation of COPD-patient is on bronchodilators and prednisone #3 RSV infection-continue prednisone and bronchodilators #4 gram-negative pneumonia-patient is on meropenem, it is recommended to continue through 05/08/2024, the plan is for the patient return home after hospitalization. #5 hypothyroidism-continue Synthroid and liothyronine #6 essential hypertension-patient will remain on present medications #7 chronic severe protein and caloric malnutrition-as evidenced by unintentional weight loss of approximately 12% x 6 months and estimated intake less than 75% x 1 month-nutritional services is seeing patient, she will be receiving 120 cc Ensure clear with breakfast and dinner for now, after the patient has her EGD he will be changed to Ensure Plus HP with advance of her diet. #8 hypokalemia-potassium supplementation was given today, BMP will be rechecked tomorrow Total clinical time spent by myself dressing the patient's medical issues, reviewing all of her data, and collaborating with patient's care team: 35 minutes Charges/Coding Visit Charges Inpatient E&M: 05570 Subs Hosp L2
[2024-05-07] MEDS: 0.9% Saline Lock 10 ML Syringe IV (19:56)
[2024-05-07] MEDS: RisperiDONE 1 MG Tablet PO (21:34)
[2024-05-07] MEDS: Atorvastatin Calcium 80 MG Tablet PO (21:34)
[2024-05-07] MEDS: Topiramate 50 MG Tablet PO (21:34)
--- NOTE | 2024-05-07 21:34 | CPS ---
Patient refused Vest treatment
[2024-05-07] MEDS: Mirtazapine 15 MG Tablet PO (21:35)
[2024-05-07] MEDS: hydrOXYzine PAM 25 MG Capsule 50 MG PO (21:35)
[2024-05-07] MEDS: Montelukast 10 MG Tablet PO (21:36)
[2024-05-08] VITALS (16 sets, daily range): BP systolic 92–110; BP diastolic 50–63; PULSE 81–99; RESP 14–20; TEMP 35.9–37.1; O2SAT 91–98; BMI 22.6
[2024-05-08] MEDS: Ipratropium/Albuterol Sulfate 3 ML AMPUL.NEB INHALATION ×7 (00:03→23:40)
[2024-05-08] MEDS: Sucralfate 1 GM Tablet PO ×4 (05:19→20:28)
[2024-05-08] MEDS: Liothyronine 5 MCG Tablet 10 MCG PO (05:20)
[2024-05-08] MEDS: Levothyroxine 50 MCG Tablet PO (05:21)
--- NOTE | 2024-05-08 07:32 | CPS ---
patient currently refusing chest vest
[2024-05-08] MEDS: Pantoprazole Sodium 40 MG in 0.9% Normal Saline (100mL MB+) 100 ML 330 MG IV ×2 (09:56→20:28)
[2024-05-08] MEDS: Metoprolol Tartrate 25 MG Tablet PO (09:57)
[2024-05-08] MEDS: Baclofen 10 MG Tablet PO (09:57)
[2024-05-08] MEDS: DULoxetine Hcl 60 MG Capsule PO ×2 (09:57→20:29)
[2024-05-08] MEDS: predniSONE 20 MG Tablet 40 MG PO (09:57)
[2024-05-08] MEDS: busPIRone 5 MG Tablet 10 MG PO ×2 (09:57→20:29)
[2024-05-08] MEDS: Amitriptyline 10 MG Tablet PO (09:57)
[2024-05-08] MEDS: Clopidogrel Bisulfate 75 MG Tablet PO (09:57)
[2024-05-08] MEDS: guaiFENesin 1,200 MG Tablet 1200 MG PO ×2 (09:58→20:29)
[2024-05-08] MEDS: Meropenem 1 GM in 0.9% Normal Saline (100mL MB+) 100 ML IV ×2 (10:27→22:05)
--- NOTE | 2024-05-08 12:07 | PCM.PN.HOSP ---
Reason for Visit Reason for Visit: Diagnoses Other specified viral diseases (04/27/24) Iron deficiency anemia, unspecified (04/27/24) Pneumonia, unspecified organism (04/27/24) Chronic obstructive pulmonary disease with (acute) exacerbation (04/27/24) Acute and chronic respiratory failure with hypoxia (04/27/24) Subjective Subjective Patient was seen and examined today, she is currently on 5 L of oxygen via nasal cannula, patient's was in the room at the time my examination. She will finish out her meropenem today. Objective Data Objective Data Vital Signs: Vital Signs Temp Pulse Resp BP Pulse Ox O2 Del Method O2 Flow Rate 97.8 F 91 18 108/61 92 Nasal Cannula 5 05/08/24 09:09 05/08/24 11:01 05/08/24 11:01 05/08/24 09:09 05/08/24 11:39 05/08/24 11:00 05/08/24 11:39 FiO2 59 05/06/24 15:17 Oxygen Flow Rate (L/min) 5 Oxygen Delivery Method Nasal Cannula Weight: 50.7 kg Body Mass Index (BMI) 22.6 Intake & Output: Intake and Output for Last 24 Hours 05/06/24 05/07/24 05/08/24 23:59 23:59 23:59 Intake Total 1785 / 1785 820 / 820 1968.9 / 1968.9 Output Total 1180 / 1680 2049 / 2049 400 / 400 Balance 605 / 105 -1230 / -1230 1568.9 / 1568.9 Medical Nutrition Assessment Dietitian: Malnutrition Criteria Met Start: 04/29/24 16:07 Freq: Status: Active Protocol: Document 05/06/24 09:14 RMA (Rec: 05/06/24 09:15 RMA [id number]) Nutrition Malnutrition Evidence of Malnutrition Exists Yes Malnutrition (moderate): Chronic Malnutrition (unspecified) Severe pro/arcenio Evidenced By Suboptimal Energy Intake ( Severe),Weight Loss (Severe) Clinical Problem Chronic Disease or Condition Related Malnutrition Etiology severe pro-arcenio malnutrition in the context of chronic disease related to increased energy expenditure/COPD and altered GI function Signs/Symptoms as evidenced by unintentional weight loss of ~12% x 6 months and estimated intake <75% x > 1 month; currently NPO/clear liquids x day 2-3 for pending EGD Status Active Problem Recommendation Dietitian Recommendations/Changes Advance diet as tolerated s/p EGD to liberalized Regular diet. Will change ONS to 120mL ensure clear w/ breakfast and dinner for now; adjust to Ensure Plus HP s/p EGD as diet advanced to solid food. Lab / Micro Data 05/07/24 06:50 05/07/24 06:50 Micro: Microbiology 04/29/24 17:48 Sputum, Expectorated/Coughed Gram Stain - Final 04/29/24 17:48 Sputum, Expectorated/Coughed Respiratory Culture - Final Achromobacter denitrificans 05/01/24 09:00 Nasal Secretion SARS-CoV-2 Antigen (Rapid) - Final 04/26/24 17:32 Mucosa - Nose SARS-CoV-2, Influenza & RSV (PCR) - Final RSV Rhythm Strip Rhythm Strip: Sinus Tach Rate: 109 Ectopy: None Physical Exam Narrative alert, oriented x3 and no apparent distress General Appearance: cooperative, well kempt and well developed Orientation / Consciousness: awake, oriented to person, oriented to place and oriented to time HEENT normocephalic, head/scalp atraumatic and moist oral mucous membranes Eyes PERRL, EOMs intact bilaterally and conjunctivae normal Neck supple, no JVD, thyroid normal and no carotid bruits General: trachea midline Resp normal respiratory effort, no retractions, no use of accessory muscles and clear to auscultation bilaterally Auscultation: Negative for rales, rhonchi or wheezes Cardio regular rate, regular rhythm, S1 normal heart sound, S2 normal heart sound, no murmurs, no rub and no gallops GI normal to inspection, nondistended, normoactive bowel sounds, soft to palpation, non-tender and non-distended Extremity no clubbing, cyanosis or edema, 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 Acute on chronic hypoxic respiratory failure-related to COPD exacerbation and RSV infection on a backdrop of gram-negative pneumonia-patient will continue antibiotics per ID, continue bronchodilators and prednisone. Patient is on home oxygen chronically at 4 L. #2 acute exacerbation of COPD-patient is on bronchodilators and prednisone #3 RSV infection-continue prednisone and bronchodilators #4 gram-negative pneumonia-patient is on meropenem, it is recommended to continue through 05/08/2024, the plan is for the patient return home after hospitalization. #5 hypothyroidism-continue Synthroid and liothyronine #6 essential hypertension-patient will remain on present medications #7 chronic severe protein and caloric malnutrition-as evidenced by unintentional weight loss of approximately 12% x 6 months and estimated intake less than 75% x 1 month-nutritional services is seeing patient, she will be receiving 120 cc Ensure clear with breakfast and dinner for now, after the patient has her EGD he will be changed to Ensure Plus HP with advance of her diet. #8 hypokalemia-resolved at this time Total clinical time spent by myself dressing the patient's medical issues, reviewing all of her data, and collaborating with patient's care team: 35 minutes Charges/Coding Visit Charges Inpatient E&M: 63680 Subs Hosp L2
[2024-05-08] MEDS: Montelukast 10 MG Tablet PO (20:28)
[2024-05-08] MEDS: RisperiDONE 1 MG Tablet PO (20:28)
[2024-05-08] MEDS: Mirtazapine 15 MG Tablet PO (20:28)
[2024-05-08] MEDS: 0.9% Saline Lock 10 ML Syringe IV (20:28)
[2024-05-08] MEDS: hydrOXYzine PAM 25 MG Capsule 50 MG PO (20:28)
[2024-05-08] MEDS: Atorvastatin Calcium 80 MG Tablet PO (20:29)
[2024-05-08] MEDS: Topiramate 50 MG Tablet PO (20:29)
--- NOTE | 2024-05-08 22:44 | CPS ---
Patient refuses Vest therapy
[2024-05-09] VITALS (7 sets, daily range): BP systolic 100–109; BP diastolic 55–67; PULSE 61–101; RESP 17–18; TEMP 36.4–36.6; O2SAT 77–96; BMI 22.5
[2024-05-09] MEDS: Liothyronine 5 MCG Tablet 10 MCG PO (05:53)
[2024-05-09] MEDS: Levothyroxine 75 MCG Tablet PO (05:53)
[2024-05-09] MEDS: Ondansetron 4 MG/2 ML Vial IV (05:54)
[2024-05-09] MEDS: 0.9% Saline Lock 10 ML Syringe IV (05:54)
[2024-05-09] MEDS: Ipratropium/Albuterol Sulfate 3 ML AMPUL.NEB INHALATION ×2 (07:15→10:41)
[2024-05-09] MEDS: predniSONE 20 MG Tablet 40 MG PO (09:33)
[2024-05-09] MEDS: busPIRone 5 MG Tablet 10 MG PO (09:34)
[2024-05-09] MEDS: Amitriptyline 10 MG Tablet PO ×2 (09:34→09:35)
[2024-05-09] MEDS: DULoxetine Hcl 60 MG Capsule PO (09:34)
[2024-05-09] MEDS: Furosemide 40 MG Tablet PO (09:35)
[2024-05-09] MEDS: Baclofen 10 MG Tablet PO (09:35)
[2024-05-09] MEDS: Pantoprazole Sodium 40 MG in 0.9% Normal Saline (100mL MB+) 100 ML 330 MG IV (09:36)
[2024-05-09] MEDS: Metoprolol Tartrate 25 MG Tablet PO (09:36)
[2024-05-09] MEDS: Clopidogrel Bisulfate 75 MG Tablet PO (09:36)
[2024-05-09] MEDS: guaiFENesin 1,200 MG Tablet 1200 MG PO (09:36)
--- NOTE | 2024-05-09 13:51 | DCINST_ITS ---
Discharge Instructions Diet Discharge Diet: No restrictions DC O2, CPAP, BIPAP needs Home O2 Discharge instructions: Yes Type of respiratory needs?: Oxygen Oxygen frequency: Continuous Continuous oxygen liters per minute: 4L Dressing / Incision Discharge Activity: Return to Normal Activity Weight Bearing Status: - (Resume previous activity level) Follow Up Care Test Results: Test results from this visit will be discussed in further detail at your follow- up appointment, if applicable. Discharge Plan Admission Admit Date/Time: 04/27/24 14:15 Primary Reason for Your Visit: Respiratory failure, RSV infection Attending Provider: Milton Jones Primary Care Provider: Chrystal Michel Consulting Providers: Cherelle Almendarez; David Blackwell; Alok Bartlett; Jose Mckinney; Mil Banda; Henry Page; Caesar Raza; Donnie Victor; Jabier Santos; Rishabh Damon; Sana Fields; Morales Rodas; Baljinder Zavaleta; Toribio Pichardo; Analisa Singletary; Dorothy Tenorio; Jonathan Tompkins; Jon Gaines; Carmelo Lemus; Hernán Gambino; Hermelinda Ambrose; Ricco Roy; Yo Villa; Julien Ross; Asif Galicia; Le Alba Instructions Additional Instructions / Restrictions: Remain on 4 L of oxygen via nasal cannula Discharge Orders/Prescriptions Prescriptions: New midodrine 5 mg tablet 5 mg PO TID Qty: 90 0RF Rx Instructions: do not give last dose of day after 6PM or within 4 hrs of bedtime prednisone 10 mg tablet 10 mg PO BID Qty: 9 0RF Rx Instructions: 1 twice a day for 3 days then 1/day for 3 days then stop Continued lorazepam [Ativan] 1 mg tablet 1 mg PO TID PRN (Reason: Anxiety) baclofen 10 mg tablet 10 mg PO DAILY cholecalciferol (vitamin D3) 25 mcg (1,000 unit) capsule 25 mcg PO .WEEKLY mirtazapine 15 mg tablet 15 mg PO QHS Qty: 30 2RF acetaminophen 500 mg tablet 500 mg PO Q6H PRN (Reason: pain) clopidogrel 75 MG tablet 75 mg PO DAILY atorvastatin 80 MG tablet 80 mg PO QHS metoprolol tartrate 25 mg tablet 25 mg PO Q12H duloxetine 60 MG capsule 60 mg PO BID furosemide 40 mg Tablet 40 mg PO DAILY Rx Instructions: take with 20mg tablet for a total of 60mg daily liothyronine 5 mcg tablet 10 mcg PO DAILY pantoprazole 40 mg Tablet,Delayed Release (Dr/Ec) 40 mg PO BID 30 Days Qty: 60 0RF buspirone 10 mg tablet 10 mg PO BID sucralfate 100 mg/mL suspension 10 ml PO ACHS diclofenac sodium 75 mg tablet,delayed release (DR/EC) 75 mg PO BID topiramate 50 mg tablet 50 mg PO QHS hydroxyzine HCl 50 mg tablet 50 mg PO QHS levothyroxine 50 mcg tablet 50 mcg PO SUSA amitriptyline 10 mg tablet 10 mg PO DAILY cyclobenzaprine 5 mg tablet 5 mg PO Q8H PRN (Reason: muscle spasms) ipratropium-albuterol 0.5 mg-3 mg(2.5 mg base)/3 mL solution for nebulization 3 ml inhalation .Q4-6H PRN (Reason: shortness of breath or wheezing) levothyroxine 75 mcg tablet 75 mcg PO MOTUWETHFR albuterol sulfate 90 mcg/actuation HFA aerosol inhaler 2 puff INHALATION Q4H PRN (Reason: COPD) temazepam 30 mg capsule 30 mg PO QHS PRN PRN (Reason: sleep) Dulera 200-5 mcg/actuation HFA aerosol inhaler 2 puff inhalation BID Spiriva Respimat 2.5 mcg/actuation mist 2 inh INHALATION DAILY Qty: 3 3RF montelukast 10 mg tablet 10 mg PO QPM Qty: 90 3RF Discontinued levofloxacin 750 mg tablet 750 mg PO DAILY Qty: 7 0RF furosemide 20 mg tablet 20 mg PO DAILY Rx Instructions: take with 40mg tablet for a total of 60mg daily Referrals / Follow Up: Chrystal Michel DO [Primary Care Provider] - Within 2 Weeks Disposition Disposition (needs filled in before D/C Order can be placed): Home, Self Care
--- NOTE | 2024-05-09 14:06 | DS.PCM_ITS ---
Providers Date of Admission: 04/27/24 Date of Discharge: 05/09/24 Primary Care Physician: Dr. Chrystal Michel, Consultations 04/29/24 11:09 Consult: Publication Specialist / Pulmonary Medicine Routine Consulting Provider: Intensivists/Pulmonary Med Reason for Consult: acute on chronic resp failure due to COPD EMERGENT Consult: No Notified: Yes Date Notified: 04/29/24 Time Notified: 11:09 Method of Notification: Text 05/02/24 13:00 Consult: Infectious Disease Routine Consulting Provider: Alok Bartlett Reason for Consult: Assist with antimicrobial management EMERGENT Consult: No Notified: Yes Date Notified: 05/02/24 Time Notified: 13:24 Method of Notification: Text 05/03/24 07:15 Consult: Gastroenterology Routine Consulting Provider: [facility] Reason for Consult: acute on chronic anemia EMERGENT Consult: No Notified: Yes Date Notified: 05/03/24 Time Notified: 07:15 Method of Notification: Text 05/03/24 12:20 Consult: Gastroenterology Routine Consulting Provider: [facility] Reason for Consult: acute on chronic anemia EMERGENT Consult: No Notified: Yes Date Notified: 05/03/24 Time Notified: 12:20 Method of Notification: Text Reason For Visit: ACUTE EXACERBATION OF COPD SECONDARY TO RSV Diagnosis Discharge Diagnosis (1) Respiratory syncytial virus (RSV): Status: Acute Code(s): B33.8 - Other specified viral diseases Plan 1. Acute on chronic hypoxic respiratory failure-related to COPD exacerbation and RSV infection on a backdrop of gram-negative pneumonia-patient will continue antibiotics per ID, continue bronchodilators and prednisone. Patient is on home oxygen chronically at 4 L. #2 acute exacerbation of COPD-patient is on bronchodilators and prednisone #3 RSV infection-continue prednisone and bronchodilators #4 gram-negative pneumonia-patient is on meropenem, it is recommended to continue through 05/08/2024, the plan is for the patient return home after hospitalization. #5 hypothyroidism-continue Synthroid and liothyronine #6 essential hypertension-patient will remain on present medications #7 chronic severe protein and caloric malnutrition-as evidenced by unintentional weight loss of approximately 12% x 6 months and estimated intake less than 75% x 1 month-nutritional services is seeing patient, she will be receiving 120 cc Ensure clear with breakfast and dinner for now, after the patient has her EGD he will be changed to Ensure Plus HP with advance of her diet. #8 hypokalemia-resolved at this time Total clinical time spent by myself dressing the patient's medical issues, reviewing all of her data, and collaborating with patient's care team: 35 minutes Medications at Discharge Home Medications atorvastatin 80 mg tablet 80 mg PO QHS cholesterol 06/01/13 clopidogrel 75 mg tablet 75 mg PO DAILY anti platelet 06/01/13 lorazepam 1 mg tablet (Ativan) 1 mg PO TID PRN Anxiety 11/17/18 duloxetine 60 mg capsule,delayed release 60 mg PO BID DEPRESSION 06/19/20 furosemide 40 mg tablet 40 mg PO DAILY water pill 08/23/22 liothyronine 5 mcg tablet 10 mcg PO DAILY HYPOTHYROIDISM 08/23/22 pantoprazole 40 mg tablet,delayed release 40 mg PO BID ACID REFLEX 30 days #60 tabs 05/06/23 baclofen 10 mg tablet 10 mg PO DAILY SPASMS 10/09/23 cholecalciferol (vitamin D3) 25 mcg (1,000 unit) capsule 25 mcg PO .WEEKLY SUPPLEMENT 10/09/23 metoprolol tartrate 25 mg tablet 25 mg PO Q12H blood pressure 10/09/23 acetaminophen 500 mg tablet 500 mg PO Q6H PRN pain 11/05/23 tiotropium bromide 2.5 mcg/actuation mist for inhalation (Spiriva Respimat) 2 inh inhalation DAILY LUNGS #3 ea 02/02/24 buspirone 10 mg tablet 10 mg PO BID ANXIETY 02/09/24 diclofenac sodium 75 mg tablet,delayed release 75 mg PO BID see phyisican 02/09/24 sucralfate 100 mg/mL oral suspension 10 ml PO ACHS FOR STOMACH 02/09/24 topiramate 50 mg tablet 50 mg PO QHS SLEEP 02/09/24 montelukast 10 mg tablet 10 mg PO QPM allergies #90 tabs 02/15/24 mirtazapine 15 mg tablet 15 mg PO QHS sleep #30 tabs 03/01/24 albuterol sulfate 90 mcg/actuation aerosol inhaler 2 puff inhalation Q4H PRN COPD 03/11/24 amitriptyline 10 mg tablet 10 mg PO DAILY nerve pain 03/11/24 cyclobenzaprine 5 mg tablet 5 mg PO Q8H PRN muscle spasms 03/11/24 hydroxyzine HCl 50 mg tablet 50 mg PO QHS itching 03/11/24 ipratropium 0.5 mg-albuterol 3 mg (2.5 mg base)/3 mL nebulization soln 3 ml inhalation .Q4-6H PRN shortness of breath or wheezing 03/11/24 levothyroxine 50 mcg tablet 50 mcg PO SUSA thyroid 03/11/24 levothyroxine 75 mcg tablet 75 mcg PO MOTUWETHFR THYROID 03/11/24 mometasone-formoterol HFA 200 mcg-5 mcg/actuation aerosol inhaler (Dulera) 2 puff inhalation BID COPD 04/26/24 temazepam 30 mg capsule 30 mg PO QHS PRN PRN sleep 04/26/24 midodrine 5 mg tablet 5 mg PO TID #90 tabs 05/09/24 prednisone 10 mg tablet 10 mg PO BID #9 tabs 05/09/24 Hospital Course Operations None Procedures None Summary of Care Provided Minutes Spent on Discharge: 32 Hospital Course: This 68-year-old white female was seen in the emergency room at [facility] with a chief complaint of shortness of breath, patient is on oxygen at baseline at home due to COPD. She uses 4 L of oxygen continuously. Patient had complained of chills with no documented fever she had an intermittent cough with wheezing though. Workup in the emergency room showed an increased respiratory rate, pulse ox was 84% on 4 L of nasal cannula, her supplemental oxygen was increased to 8 L to maintain her pulse ox above 90%. Chemistry panel was unremarkable, chest x-ray showed a possible left pleural effusion with mild left basilar atelectasis. Patient was given aerosol treatments and IV Solu-Medrol and she was admitted to PCU for exacerbation of COPD. Her respiratory panel was noted to be positive for RSV she was seen in consultation by pulmonary medicine. Patient's sputum culture grew out Achromobacter, she was seen in consultation by ID. Patient's medical status improved slowly during her hospitalization, on 05/09/2024, patient was seen and examined: On examination she appeared in good health and spirits, she does not appear to be in any distress. Vital signs as documented. Skin warm and dry and without overt rashes. Neck without JVD, thyroid appears normal, trachea is midline, neck is supple. Lungs clear, normal air movement was noted. Heart exam notable for regular rhythm, normal sounds and absence of murmurs, rubs or gallops. Abdomen unremarkable and without evidence of organomegaly, masses, or abdominal aortic enlargement, bowel sounds are present in all 4 quadrants, no abdominal tenderness was noted. Extremities nonedematous, no cyanosis was noted, no clubbing was noted. Neuro: Cranial nerves II through XII are grossly intact, no focal motor deficits were noted, sensation to light touch and pinprick is intact, motor exam 5/5 throughout. Psych: Patient is alert and oriented x3, she does not appear anxious or depressed, she does not appear agitated. Patient was discharged home in stable condition on 05/09/2024 Medical Records Data Medical Nutrition Assessment Dietitian: Malnutrition Criteria Met Start: 04/29/24 16:07 Freq: Status: Active Protocol: Document 05/06/24 09:14 RMA (Rec: 05/06/24 09:15 RMA [id number]) Nutrition Malnutrition Evidence of Malnutrition Exists Yes Malnutrition (moderate): Chronic Malnutrition (unspecified) Severe pro/arcenio Evidenced By Suboptimal Energy Intake ( Severe),Weight Loss (Severe) Clinical Problem Chronic Disease or Condition Related Malnutrition Etiology severe pro-arcenio malnutrition in the context of chronic disease related to increased energy expenditure/COPD and altered GI function Signs/Symptoms as evidenced by unintentional weight loss of ~12% x 6 months and estimated intake <75% x > 1 month; currently NPO/clear liquids x day 2-3 for pending EGD Status Active Problem Recommendation Dietitian Recommendations/Changes Advance diet as tolerated s/p EGD to liberalized Regular diet. Will change ONS to 120mL ensure clear w/ breakfast and dinner for now; adjust to Ensure Plus HP s/p EGD as diet advanced to solid food. Weight / BMI Weight Weight: 50.6 kg Body Mass Index (BMI) 22.5 ABG / Lab / Microbiology Data 05/07/24 06:50 05/07/24 06:50 Microbiology: Microbiology 04/29/24 17:48 Sputum, Expectorated/Coughed Gram Stain - Final 04/29/24 17:48 Sputum, Expectorated/Coughed Respiratory Culture - Final Achromobacter denitrificans 05/01/24 09:00 Nasal Secretion SARS-CoV-2 Antigen (Rapid) - Final 04/26/24 17:32 Mucosa - Nose SARS-CoV-2, Influenza & RSV (PCR) - Final RSV D/C Instructions Discharge Diet: No restrictions Weight Bearing Status: - (Resume previous activity level) DC O2, CPAP, BIPAP Needs RN Home O2 Qualification: Home O2 Qualification: Is the patient on home oxygen Yes 05/09/24 14:34 Home O2 Qualification: AT REST 1-Pulse Ox at rest 94 05/09/24 14:34 1- Oxygen flow rate at rest 4 05/09/24 14:34 Home O2 Qualification: WITH AMBULATION 1- Pulse Ox with ambulation 92 05/09/24 14:34 1- Oxygen Flow Rate with 4 05/09/24 14:34 ambulation PSN CPAP & BiPAP: BiPAP & CPAP Settings per PSN Mode AIRVO 05/06/24 08:33 Bipap Delivery Device Face Mask 05/05/24 22:50 BiPAP Inspiratory Pressure 18 05/02/24 00:12 BiPAP Expiratory Pressure 12 05/05/24 22:50 BiPAP Rate 14 05/05/24 22:50 Fraction of Inspired Oxygen ( 59 05/06/24 15:17 FIO2) Total Flow Rate 60 05/05/24 23:00 Home O2 Discharge instructions: Yes Type of respiratory needs?: Oxygen Oxygen frequency: Continuous Continuous oxygen liters per minute: 4L DC home with Oxygen: Yes Home O2 MD Review: I have reviewed the oxygen testing, and the patient qualifies for home oxygen equipment and portability. The patient is mobile in the home and the community. Meaningful Use Info Meaningful Use Meaningful Use Diagnoses (Choose all that apply): None applicable Ischemic Stroke Statin Dosing Therapy Reference: STATIN DOSE THERAPY REFERENCE: * Patients > 75 years receive moderate or high dose statin therapy. * Patients 75 years or YOUNGER should receive HIGH intensity statin dose unless contraindicated. You will be required to document reason for non-treatment if statin daily dose does not meet guidelines. HIGH DOSE STATIN THERAPY DAILY Atorvastatin > than or = to 40 mg Rosuvastatin > than or = to 20 mg Amlodipine + Atorvastatin > than or = to 2.5/40 mg Ezetimibe + Simvastatin 10/80 mg Simvastatin 80mg Discharge Plan Admission Admit Date/Time: 04/27/24 14:15 Primary Reason for Your Visit: Respiratory failure, RSV infection Attending Provider: Milton Jones Primary Care Provider: Chrystal Michel Consulting Providers: Cherelle Almendarez; David Blackwell; Alok Bartlett; Jose Mckinney; Mil Banda; Henry Page; Caesar Raza; Donnie Victor; Jabier Santos; Rishabh Damon; Sana Fields; Morales Rodas; Baljinder Zavaleta; Toribio Pichardo; Analisa Singletary; Dorothy Tenorio; Jonathan Tompkins; Jon Gaines; Carmelo Lemus; Hernán Gambino; Hermelinda Ambrose; Ricco Roy; Yo Villa; Julien Ross; Asif Galicia; Le Alba Instructions Additional Instructions / Restrictions: Remain on 4 L of oxygen via nasal cannula Discharge Orders/Prescriptions Prescriptions: New midodrine 5 mg tablet 5 mg PO TID Qty: 90 0RF Rx Instructions: do not give last dose of day after 6PM or within 4 hrs of bedtime prednisone 10 mg tablet 10 mg PO BID Qty: 9 0RF Rx Instructions: 1 twice a day for 3 days then 1/day for 3 days then stop Continued lorazepam [Ativan] 1 mg tablet 1 mg PO TID PRN (Reason: Anxiety) baclofen 10 mg tablet 10 mg PO DAILY cholecalciferol (vitamin D3) 25 mcg (1,000 unit) capsule 25 mcg PO .WEEKLY mirtazapine 15 mg tablet 15 mg PO QHS Qty: 30 2RF acetaminophen 500 mg tablet 500 mg PO Q6H PRN (Reason: pain) clopidogrel 75 MG tablet 75 mg PO DAILY atorvastatin 80 MG tablet 80 mg PO QHS metoprolol tartrate 25 mg tablet 25 mg PO Q12H duloxetine 60 MG capsule 60 mg PO BID furosemide 40 mg Tablet 40 mg PO DAILY Rx Instructions: take with 20mg tablet for a total of 60mg daily liothyronine 5 mcg tablet 10 mcg PO DAILY pantoprazole 40 mg Tablet,Delayed Release (Dr/Ec) 40 mg PO BID 30 Days Qty: 60 0RF buspirone 10 mg tablet 10 mg PO BID sucralfate 100 mg/mL suspension 10 ml PO ACHS diclofenac sodium 75 mg tablet,delayed release (DR/EC) 75 mg PO BID topiramate 50 mg tablet 50 mg PO QHS hydroxyzine HCl 50 mg tablet 50 mg PO QHS levothyroxine 50 mcg tablet 50 mcg PO SUSA amitriptyline 10 mg tablet 10 mg PO DAILY cyclobenzaprine 5 mg tablet 5 mg PO Q8H PRN (Reason: muscle spasms) ipratropium-albuterol 0.5 mg-3 mg(2.5 mg base)/3 mL solution for nebulization 3 ml inhalation .Q4-6H PRN (Reason: shortness of breath or wheezing) levothyroxine 75 mcg tablet 75 mcg PO MOTUWETHFR albuterol sulfate 90 mcg/actuation HFA aerosol inhaler 2 puff INHALATION Q4H PRN (Reason: COPD) temazepam 30 mg capsule 30 mg PO QHS PRN PRN (Reason: sleep) Dulera 200-5 mcg/actuation HFA aerosol inhaler 2 puff inhalation BID Spiriva Respimat 2.5 mcg/actuation mist 2 inh INHALATION DAILY Qty: 3 3RF montelukast 10 mg tablet 10 mg PO QPM Qty: 90 3RF Discontinued levofloxacin 750 mg tablet 750 mg PO DAILY Qty: 7 0RF furosemide 20 mg tablet 20 mg PO DAILY Rx Instructions: take with 40mg tablet for a total of 60mg daily Referrals / Follow Up: hCrystal Michel DO [Primary Care Provider] - 05/12/24 9:40 am Disposition Disposition (needs filled in before D/C Order can be placed): Home, Self Care Charges/Coding Visit Charges Inpatient E&M: 36114 Disch Hosp >30min
--- NOTE | 2024-05-09 14:43 | CASEMGMT ---
Patient has order for discharge. DEWAYNE CM in to discuss needs at discharge, at bedside. Patient and denied needs or help at discharge. Patient states she is interested in home delivered meals. DEWAYNE LOPEZ provided list of home delivered meal agencies to patient and . Patient and deny HHC at discharge. DEWAYNE LOPEZ advised patient and to follow up with PCP should needs arise in the future. Patient and had no further questions or concerns.
== END 2024-05-09 15:10 | disposition home or self-care (01) | DRG 193 ==
LOC: ED 20:48 → MS3 21:02 → PCU 05-05 07:36
PROVIDERS: Hospitalist; Internal Medicine Critical Care Medicine; Internal Medicine Gastroenterology; Student in an Organized Health Care Education/Training Program; Admitting Provider Internal Medicine; Emergency Provider Emergency Medicine; PCP Family Medicine; Visit Provider Internal Medicine
PROC: 0DJ08ZZ Inspection of Upper Intestinal Tract, Via Natural or Artificial Opening Endoscopic (ICD-10-PCS; CPT 43235; principal; 2024-05-06 15:40)
DX: J12.1 Respiratory syncytial virus pneumonia (principal); J96.21 Acute and chronic respiratory failure with hypoxia; E43 Unspecified severe protein-calorie malnutrition; E87.20 Acidosis, unspecified; J45.901 Unspecified asthma with (acute) exacerbation; J44.0 Chronic obstructive pulmonary disease with (acute) lower respiratory infection; E87.1 Hypo-osmolality and hyponatremia; J47.0 Bronchiectasis with acute lower respiratory infection; J44.1 Chronic obstructive pulmonary disease with (acute) exacerbation; Z66 Do not resuscitate; I11.0 Hypertensive heart disease with heart failure; D50.9 Iron deficiency anemia, unspecified; F32.A Depression, unspecified; E89.0 Postprocedural hypothyroidism; J15.69 Pneumonia due to other Gram-negative bacteria; I50.9 Heart failure, unspecified; E78.5 Hyperlipidemia, unspecified; J30.2 Other seasonal allergic rhinitis; M79.7 Fibromyalgia; F41.9 Anxiety disorder, unspecified; K21.00 Gastro-esophageal reflux disease with esophagitis, without bleeding; E87.6 Hypokalemia; R54 Age-related physical debility; R11.10 Vomiting, unspecified; Z79.890 Hormone replacement therapy; Z99.3 Dependence on wheelchair; G89.29 Other chronic pain; Z87.891 Personal history of nicotine dependence; Z79.51 Long term (current) use of inhaled steroids; Z90.710 Acquired absence of both cervix and uterus; Z79.02 Long term (current) use of antithrombotics/antiplatelets; F43.10 Post-traumatic stress disorder, unspecified; Z53.29 Procedure and treatment not carried out because of patient's decision for other reasons; Z79.2 Long term (current) use of antibiotics; Z79.52 Long term (current) use of systemic steroids; Z68.22 Body mass index [BMI] 22.0-22.9, adult
CPT/HCPCS: 36415; 36600; 71045; 71046; 71275; 80048; 80053; 80076; 82728; 82803; 83540; 83550; 83605; 83690; 83735; 83880; 84100; 84145; 84484; 85014; 85018; 85025; 85027; 85045; 86850; 86900; 86901; 87070; 87077; 87186; 87205; 87426; 87631; 93005; 94002; 94003; 94640; 94660; 94667; 94668; 94762; 97110; 97162; 97166; 97530; 97535; 99285; J2185; P9016; Q9967; A4216; J1940; J2405; J2916

== ENCOUNTER 2024-05-19 21:10 | Emergency (ER) | payer MEDICARE, SELFPAY ==
[2024-05-19] VITALS (8 sets, daily range): BP systolic 121–133; BP diastolic 58–65; PULSE 83–98; RESP 17–20; TEMP 36.9; O2SAT 85–95; BMI 22.9
--- NOTE | 2024-05-19 21:18 | RAD_ITS ---
INDICATION: chest pain EXAMINATION/TECHNIQUE: X-RAY - XR Chest 2 Views COMPARISON: 05/05/2024. FINDINGS: Bibasilar scarring/atelectasis, slightly worse when compared to prior on 05/05/2024. Tortuous and calcified thoracic aorta. The heart is mildly enlarged. No pleural effusion or pneumothorax. Degenerative changes of the thoracic spine. Postsurgical changes of the visualized thoracolumbar spine. RAD/Chest PA and Lateral IMPRESSION: Bibasilar scarring/atelectasis, slightly worse when compared to prior on 05/05/2024. Cannot rule out superimposed infection. Electronically Signed: Fernandez Philippe MD at 23:10 EST ,
--- NOTE | 2024-05-19 21:18 | EKG12_ITS ---
Test Reason : DYSRHYTHMIA Blood Pressure : */* mmHG Vent. Rate : 89 BPM Atrial Rate : 89 BPM P-R Int : 154 ms QRS Dur : 88 ms QT Int : 426 ms P-R-T Axes : 54 48 56 degrees QTcB Int : 518 ms Sinus rhythm with occasional Premature ventricular complexes Nonspecific T wave abnormality Abnormal ECG Confirmed by ITZ HIRSCH, CHRISTIAN ([id number]), movie editor DAKOTAH DELVALLE ([id number]) on 05/24/2024 7:16:01 AM Referred By: RASTA Confirmed By: CHRISTIAN MOBLEY MD
[2024-05-19 21:39] LABS: Absolute Lymphocyte Count 2.45 X10^3/uL (0.83-4.51); Basophil# 0.08 X10^3/uL; Basophil% 0.9 % (0-1); Eosinophil# 0.09 X10^3/uL; Hematocrit 30.3 % (37-47); Hemoglobin 9.3 g/dL (12.0-15.0); Lymphocyte # 2.45 X10^3/ul (0.83-4.51); Lymphocyte % 26.4 % (19-41); Mean Corp Hgb Conc 30.7 g/dL (32-36); Mean Corpuscular Hgb 26.1 pg (27.0-32.0); Mean Corpuscular Volume 85.1 fL (81-99); Mean Platelet Vol. 9.2 fl (6.2-12.0); Monocyte# 0.65 X10^3/uL; NRBC Flagged by Analyzer 0.2 % (0-5); Neutrophil # 5.97 X10^3/uL (2.7-7.7); Neutrophil % 64.4 % (47-70); POSITIVE MORPHOLOGY YES; Platelet Count 432 K/mm3 (150-450); RBC Distribution Width CV 22.7 % (11.6-14.6); RBC Distribution Width SD 67.9 fl (35.1-43.9); Red Blood Count 3.56 M/mm3 (4.2-5.4); White Blood Count 9.3 K/mm3 (4.4-11.0)
[2024-05-19] MEDS: Ipratropium/Albuterol Sulfate 3 ML AMPUL.NEB INHALATION (21:44)
[2024-05-19 21:47] LABS: Differential Indicated SCAN CRITERIA MET
[2024-05-19] MEDS: Albuterol 2.5 MG/3 ML VIAL.NEB. INHALATION ×2 (21:51→22:33)
[2024-05-19 21:57] LABS: Anion Gap 6 (5-15); BUN 14 mg/dL (7-18); BUN/Creat Ratio 19.3 RATIO (10-20); Calcium,Total 9.4 mg/dL (8.5-10.1); Chloride 106 mmol/L (98-107); Creatinine, Serum 0.73 mg/dL (0.55-1.02); EST Glomerular Filtration Rate 85 mL/min (>60); Est Glom Filt Rate - Afr Amer 102 mL/min (>60); Estimated Creatinine Clearance 48.34 ml/min; Glucose 118 mg/dL (74-106); Potassium 3.6 mmol/L (3.5-5.1); Sodium Level 138 mmol/L (136-145); Troponin-I HS 19 pg/mL (3.0-54.0)
--- NOTE | 2024-05-19 21:58 | CPS ---
[2144] x1 Albuterol given to pt. at this time. Pt. wishes to hold off on the additional Albuterol at this time due to tremors occurring. Dr. Coyle made aware.
[2024-05-19] MEDS: MethylPREDNISolone 125 MG/2 ML Vial IV (22:04)
[2024-05-19 22:06] LABS: Anisocytosis 2+; Differential Comment SCANNED
[2024-05-19 22:07] LABS: Hypochromasia 1+
--- NOTE | 2024-05-19 22:12 | ED.VIS.DYS ---
HPI History of Present Illness Chief Complaint: Shortness of Breath Informant: patient Onset/Context/Timing Onset: Today and Hours Context: gradual Timing: Continuous Quality: Positive for Wheezing Current Severity: Mild Maximum Severity: Mild Worsened by: Coughing Relieved by: Oxygen and Albuterol Associated Symptoms cough and green sputum Chest Pain: Positive for None Narrative Narrative: 68-year-old female history of COPD 04 L or chills at home. Has nebulizer inhaler at home. Currently not on steroids has been recently. Prior AZ and stroke. Patient states she has had 2 prior admissions this month for shortness of breath 1 for RSV and 1 with pneumonia. States she has a cough of greenish sputum. No fever but does have chills. No vomiting or diarrhea. No history of DVT or PE. No chest pain or hemoptysis. PE Risk Factors: Negative for Cancer, OCP + Smoking + > 35, Prior DVT or PE, Recent surgery or Recent travel Prior similar symptoms: Yes Recent Illness/Hospitalization: Yes PFSH [facility] Medical History Asthma exacerbation in COPD Respiratory syncytial virus (RSV) Microcytic anemia RSV infection Pneumonia Acute and chronic respiratory failure with hypoxia Acute exacerbation of chronic obstructive pulmonary disease (COPD) PTSD (post-traumatic stress disorder) Hyperthyroidism GI bleed Former smoker CPAP (continuous positive airway pressure) dependence On home oxygen therapy Myocardial infarct Congestive heart failure (CHF) Migraines Fall Contusion of nose Periorbital contusion of right eye Contusion of multiple fingers Chronic hypoxic respiratory failure Contusion of scalp Normocytic anemia Fibromyalgia Chronic respiratory failure with hypoxia RAUL (obstructive sleep apnea) Incisional hernia TIA (transient ischemic attack) Osteoporosis Osteoarthritis Thyroid disorder Diverticulitis History of heart attack Sleep apnea History of pneumonia COPD (chronic obstructive pulmonary disease) History of bronchitis Asthma HTN (hypertension) Depression Anxiety Nausea and vomiting GERD (gastroesophageal reflux disease) Heart disease spinal stimulator Spinal stenosis Chronic back pain Hypothyroidism Home Medications ?Medication ?Instructions ?Recorded ?Last Taken ?Type atorvastatin 80 mg tablet 80 mg PO QHS cholesterol 06/01/13 05/25/14 History 80 MG clopidogrel 75 mg tablet 75 mg PO DAILY anti platelet 06/01/13 11/18/23 History lorazepam 1 mg tablet (Ativan) 1 mg PO TID PRN Anxiety 11/17/18 Unknown History duloxetine 60 mg capsule,delayed 60 mg PO BID DEPRESSION 06/19/20 Unknown History release furosemide 40 mg tablet 40 mg PO DAILY water pill 08/23/22 Unknown History liothyronine 5 mcg tablet 10 mcg PO DAILY HYPOTHYROIDISM 08/23/22 Unknown History pantoprazole 40 mg tablet,delayed 40 mg PO BID ACID REFLEX 30 days 05/06/23 Unknown Rx release #60 tabs baclofen 10 mg tablet 10 mg PO DAILY SPASMS 10/09/23 Unknown History cholecalciferol (vitamin D3) 25 25 mcg PO .WEEKLY SUPPLEMENT 10/09/23 Unknown History mcg (1,000 unit) capsule metoprolol tartrate 25 mg tablet 25 mg PO Q12H blood pressure 10/09/23 Unknown History acetaminophen 500 mg tablet 500 mg PO Q6H PRN pain 11/05/23 Unknown History tiotropium bromide 2.5 2 inh inhalation DAILY LUNGS #3 ea 02/02/24 Unknown Rx mcg/actuation mist for inhalation (Spiriva Respimat) buspirone 10 mg tablet 10 mg PO BID ANXIETY 02/09/24 Unknown History diclofenac sodium 75 mg 75 mg PO BID see phyisican 02/09/24 Unknown History tablet,delayed release sucralfate 100 mg/mL oral 10 ml PO ACHS FOR STOMACH 02/09/24 Unknown History suspension topiramate 50 mg tablet 50 mg PO QHS SLEEP 02/09/24 Unknown History montelukast 10 mg tablet 10 mg PO QPM allergies #90 tabs 02/15/24 Unknown Rx albuterol sulfate 90 mcg/actuation 2 puff inhalation Q4H PRN COPD 03/11/24 Unknown History aerosol inhaler amitriptyline 10 mg tablet 10 mg PO DAILY nerve pain 03/11/24 Unknown History cyclobenzaprine 5 mg tablet 5 mg PO Q8H PRN muscle spasms 03/11/24 Unknown History hydroxyzine HCl 50 mg tablet 50 mg PO QHS itching 03/11/24 Unknown History ipratropium 0.5 mg-albuterol 3 mg 3 ml inhalation .Q4-6H PRN 03/11/24 Unknown History (2.5 mg base)/3 mL nebulization shortness of breath or wheezing soln levothyroxine 50 mcg tablet 50 mcg PO SUSA thyroid 03/11/24 Unknown History levothyroxine 75 mcg tablet 75 mcg PO MOTUWETHFR THYROID 03/11/24 Unknown History mometasone-formoterol HFA 200 2 puff inhalation BID COPD 04/26/24 Unknown History mcg-5 mcg/actuation aerosol inhaler (Dulera) temazepam 30 mg capsule 30 mg PO QHS PRN PRN sleep 04/26/24 Unknown History midodrine 5 mg tablet 5 mg PO TID #90 tabs 05/09/24 Unknown Rx prednisone 10 mg tablet 10 mg PO BID #9 tabs 05/09/24 Unknown Rx mirtazapine 15 mg tablet 15 mg PO QHS sleep #30 tabs 05/17/24 Unknown Rx prednisone 20 mg tablet 40 mg (2 x 20 mg) PO DAILY 7 days 05/19/24 Unknown Rx #14 tabs Allergy/AdvReac Type Severity Reaction Status Date / Time cefaclor (From Ceclor) Allergy Itching Verified 05/19/24 21:12 clarithromycin Allergy Hives Verified 05/19/24 21:12 doxycycline Allergy Itching Verified 05/19/24 21:12 Penicillins Allergy Hives Verified 05/19/24 21:12 Sulfa (Sulfonamide Allergy Hives Verified 05/19/24 21:12 Antibiotics) biotin AdvReac Unknown Unknown Verified 05/19/24 21:12 zolpidem (From Ambien) AdvReac Unknown mental Verified 05/19/24 21:12 issues Family History Father Asthma Heart disease Grandmother Breast cancer Diabetes Mother Heart disease COPD (chronic obstructive pulmonary disease) Other Cancer Surgical History Hx of BKA History of appendectomy History of incisional hernia repair History of incisional hernia repair (~12/20/18) Hx of cholecystectomy History of esophagogastroduodenoscopy (EGD) (~07/2018) Previous back surgery S/P hysterectomy S/P carpal tunnel release S/P knee surgery S/P correction of deviated nasal septum Status post thyroidectomy H/O heart artery stent Status post amputation of right foot Social History household members: spouse Smoking Status: Former smoker Tobacco: How many years used: 25 second hand exposure: Yes alcohol intake: never substance use type: does not use caffeine: Yes what type of physical activity do you participate in: none frequency: does not exercise ROS ROS ED ROS Narrative Cough. Green sputum. Shortness of breath. Intermittent wheezing. No fever. No chest pain. No hemoptysis. Constitutional Constitutional ED: Reports chills; Denies fever(s) Eyes Eyes: Denies blurry vision ENT ENT ED: Denies ear pain Cardiovascular Cardiovascular: Denies chest pain or palpitations Respiratory/Chest Respiratory/Chest: Reports cough, dyspnea and sputum Gastrointestinal Gastrointestinal: Denies abdominal pain, constipation, diarrhea, melena, nausea or vomiting Genitourinary Genitourinary ED: Denies dysuria or hematuria Musculoskeletal Musculoskeletal: Denies arthralgias or back pain Integumentary Denies abscess or Abrasions Neurologic Neurologic: Denies headache(s) Psychiatric Psychiatric: Denies anxiety or depression Endocrine Endocrinology: Denies cold intolerance or heat intolerance Hematologic/Lymphatic Hematologic/Lymphatic: Denies easy bleeding, easy bruising or lymphadenopathy Allergic/Immunologic Allergic/Immunologic ED: Denies mouth swelling, tongue swelling or urticaria EXAM Physical Exam Narrative Exam Narrative: 60-year-old female sitting upright in bed. Vital signs are stable currently afebrile with an oral temp of 90.4. Pulse ox is 91% on 3 L. She does not look septic or toxic. She does not look significantly dehydrated. H EENT exam pupils round reactive light. No facial droop. Normal speech. Mytrex membranes. Neck nontender no JVD no lymphadenopathy. Lungs coarse breath sounds bilaterally. Few scattered wheezes. No rales or rhonchi. Equal symmetrical. Prolonged expiratory phase. Heart regular rhythm rate about 90 no murmur. Chest wall ribs nontender. Abdomen soft nontender. Moving all 4 extremities. She has a below-knee amputation on the right leg. Left calf is nontender with no edema. Neurologically she is awake and alert. Answering questions and following commands. Back nontender. No rashes. Const Vital Signs: 05/19/24 21:12 05/19/24 21:16 05/19/24 21:23 Temperature 98.4 F 98.4 F Temperature Source Oral Oral Pulse Rate 91 89 Respiratory Rate 18 18 Respiratory Effort Short of Breath Respiratory Depth Deep Respiratory Pattern Tachypnea Blood Pressure 132/63 H 133/65 H Blood Pressure Mean 86 87 Pulse Ox 91 94 Oxygen Delivery Method Nasal Cannula Nasal Cannula Nasal Cannula Oxygen Flow Rate (L/min) 3 3 3 05/19/24 21:24 05/19/24 21:44 05/19/24 22:16 Temperature 98.4 F Temperature Source Oral Pulse Rate 90 83 Respiratory Rate 20 H 20 H Respiratory Effort Respiratory Depth Respiratory Pattern Normal Blood Pressure 125/61 H Blood Pressure Mean 82 Pulse Ox 95 92 Oxygen Delivery Method Nasal Cannula Nasal Cannula Oxygen Flow Rate (L/min) 3 3 Positive well nourished and well developed; Negative for cachectic, contractures or unkempt General Appearance ED: well developed and NAD; Negative for unkempt, cachectic, contractures or pallor Nutritional Appearance: Negative for cachectic HEENT Reports moist mucous membranes atraumatic; Negative for trauma or tenderness Eyes PERRL and EOMs intact bilaterally General Eye ED: Negative for pale conjunctiva or scleral icterus Neck no lymphadenopathy, supple, no meningeal signs and no JVD General: Negative for tenderness Lymph Lymphatic: Negative for other Chest Wall Chest: Negative for other Resp No normal respiratory effort and No clear to auscultation bilaterally Resp Narrative: Coarse breath sounds bilaterally. Few scattered wheezes. Prolonged expiratory phase. Decreased air movement. Effort and Inspection: Negative for pain with movement Auscultation: wheezes; Negative for rales, rhonchi or diminished lung sounds Cardio regular rate, regular rhythm, S1 normal heart sound, S2 normal heart sound and no murmurs Rate: Negative for bradycardia or tachycardic Rhythm: Negative for abnormal rhythm GI non-tender, non-distended and no masses Palpation: soft; Negative for tender, guarding or rebound tenderness present Back/Spine no CVA tenderness and normal to inspection Extremity normal to inspection Extremity Narrative: Right below the knee amputation. General Extremety ED: Negative for edema or tenderness General Extremity: Negative for edema Neuro oriented x3 and CN's II-XII intact bilaterally Sensorium / Orientation: alert, oriented to person, oriented to place and oriented to time; Negative for orientation impaired, confused, lethargic or stuporous Speech: speech normal Motor Exam: strength 5/5 throughout Psych Appearance: Negative for unkempt Mood & Affect: Negative for depressed or anxious Thought Process: normal thought process Skin no wounds General Skin Exam: Negative for jaundice or pallor Lesions: no lesions Rashes: no rashes MDM MDM MDM Narrative Medical decision making narrative: 68-year-old female COPD with shortness of breath. Recent history of RSV and admission for pneumonia. Suspect COPD exacerbation rule out pneumonia versus viral syndrome versus CHF versus cardiac etiology.Treated with IV Solu-Medrol DuoNeb and albuterol aerosols. Repeat exam patient is doing well at 11:05 PM. She is moving air much better. Currently not wheezing. No distress. I discussed her test results with her and I believe her . He is comfortable taking her home. Patient understands she really does not have anything to be admitted for. Her labs are as good or better than her baseline. Her chest x-ray is chronic. She has no white count no fever. Clinically I do not think this is a pneumonia. She be written for prednisone at home. She has an inhaler and nebulizer at home. 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 History & Record Review Discussion w/independent historian: Patient Additional record(s) reviewed:: Prior inpatient record, Prior outpatient record, Prior ED visit and Prior labs Lab Data Attestation: I reviewed the patient's lab results. Lab results narrative: CBC shows a white count 9.3. H&H 9.3 and 30 which is her baseline chronic anemia. Platelets 432. Electrolytes show a gap of 6. Normal BUN of 14 creatinine 0.7. Glucose 118. Troponin 19. COVID and flu negative. Labs are consistent with prior. Labs: Laboratory Results - last 24 hr 05/19/24 21:29 WBC 9.3 RBC 3.56 L Hgb 9.3 L Hct 30.3 L MCV 85.1 MCH 26.1 L MCHC 30.7 L RDW Std Deviation 67.9 H RDW Coeff of [place] 22.7 H Plt Count 432 MPV 9.2 Immature Gran % (Auto) 0.300 Neut % (Auto) 64.4 Lymph % (Auto) 26.4 [place] % (Auto) 7.0 Eos % (Auto) 1.0 Baso % (Auto) 0.9 Absolute Neuts (auto) 6.0 Absolute Lymphs (auto) 2.45 Nucleated RBC % 0.2 Differential Comment SCANNED Hypochromasia 1+ Anisocytosis 2+ Sodium 138 Potassium 3.6 Chloride 106 Carbon Dioxide 26.0 Anion Gap 6 BUN 14 Creatinine 0.73 Estim Creat Clear Calc 48.34 Est GFR (MDRD) Af Amer 102 Est GFR (MDRD) Non-Af 85 BUN/Creatinine Ratio 19.3 Glucose 118 H Calcium 9.4 Troponin I High Sens 19 Radiography Chest X-Ray - ED: 2 View, Read by ED Physician, Heart, Mediastinum, Bony Structures, No Acute Disease and Chronic Changes Diagnostic Testing: Chest x-ray, 2 views, AP lateral, interpreted by myself shows normal cardiac silhouette. Small bibasilar atelectasis and effusions. No obvious pneumonia. Chronic changes. Old orthopedic rods. No significant change from prior. Rhythm Strip Rhythm Strip: Sinus Rhythm Rate: 89 Ectopy: PVC(s) EKG Initial EKG: Attestation: I personally reviewed and interpreted this EKG as follows: Interpretation: Sinus Rhythm and No Acute Injury Pattern Comments: Normal sinus rhythm. Rate 89. Occasional PVC. No acute signs of AZ or ischemia. Discharge Plan Triage Chief Complaint: Shortness of Breath ED Provider: Mahin Coyle Dx/Rx/DC Orders Clinical Impression: Acute dyspnea, Acute exacerbation of chronic obstructive pulmonary disease, History of AZ (myocardial infarction), History of heart failure Instructions: ED COPD Flare Prescriptions: New prednisone 20 mg tablet 40 mg PO DAILY 7 Days Qty: 14 0RF No Action lorazepam [Ativan] 1 mg tablet 1 mg PO TID PRN (Reason: Anxiety) baclofen 10 mg tablet 10 mg PO DAILY cholecalciferol (vitamin D3) 25 mcg (1,000 unit) capsule 25 mcg PO .WEEKLY acetaminophen 500 mg tablet 500 mg PO Q6H PRN (Reason: pain) clopidogrel 75 MG tablet 75 mg PO DAILY atorvastatin 80 MG tablet 80 mg PO QHS metoprolol tartrate 25 mg tablet 25 mg PO Q12H duloxetine 60 MG capsule 60 mg PO BID furosemide 40 mg Tablet 40 mg PO DAILY Rx Instructions: take with 20mg tablet for a total of 60mg daily liothyronine 5 mcg tablet 10 mcg PO DAILY pantoprazole 40 mg Tablet,Delayed Release (Dr/Ec) 40 mg PO BID 30 Days Qty: 60 0RF buspirone 10 mg tablet 10 mg PO BID sucralfate 100 mg/mL suspension 10 ml PO ACHS diclofenac sodium 75 mg tablet,delayed release (DR/EC) 75 mg PO BID topiramate 50 mg tablet 50 mg PO QHS hydroxyzine HCl 50 mg tablet 50 mg PO QHS levothyroxine 50 mcg tablet 50 mcg PO SUSA amitriptyline 10 mg tablet 10 mg PO DAILY cyclobenzaprine 5 mg tablet 5 mg PO Q8H PRN (Reason: muscle spasms) ipratropium-albuterol 0.5 mg-3 mg(2.5 mg base)/3 mL solution for nebulization 3 ml inhalation .Q4-6H PRN (Reason: shortness of breath or wheezing) levothyroxine 75 mcg tablet 75 mcg PO MOTUWETHFR albuterol sulfate 90 mcg/actuation HFA aerosol inhaler 2 puff INHALATION Q4H PRN (Reason: COPD) temazepam 30 mg capsule 30 mg PO QHS PRN PRN (Reason: sleep) Dulera 200-5 mcg/actuation HFA aerosol inhaler 2 puff inhalation BID midodrine 5 mg tablet 5 mg PO TID Qty: 90 0RF Rx Instructions: do not give last dose of day after 6PM or within 4 hrs of bedtime prednisone 10 mg tablet 10 mg PO BID Qty: 9 0RF Rx Instructions: 1 twice a day for 3 days then 1/day for 3 days then stop Spiriva Respimat 2.5 mcg/actuation mist 2 inh INHALATION DAILY Qty: 3 3RF montelukast 10 mg tablet 10 mg PO QPM Qty: 90 3RF mirtazapine 15 mg tablet 15 mg PO QHS Qty: 30 0RF Primary Care Provider: Chrystal Michel Referrals: Chrystal Michel DO [Primary Care Provider] - 3-5 Days Activity Restrictions/Additional Instructions: Follow-up with your primary care physician or wood die maker to ensure you are improving. Prednisone daily to decrease inflammation in your lungs and help your breathing. Use your inhaler and nebulizer as needed. Print Language: Danish Disposition Disposition: Home, Self Care
--- NOTE | 2024-05-19 22:53 | CPS ---
[2233] x1 Albuterol given to pt. in ER. Pre-tx: HR=90, RR=20 with diminished breath sounds. Post-tx: HR=88, RR=20 with clearer breath sounds. No adventitious lung sounds noted.
== END 2024-05-19 23:22 | disposition home or self-care (01) ==
PROVIDERS: Emergency Provider Emergency Medicine; PCP Family Medicine; Visit Provider Emergency Medicine
DX: J44.1 Chronic obstructive pulmonary disease with (acute) exacerbation (principal); J96.11 Chronic respiratory failure with hypoxia; I11.0 Hypertensive heart disease with heart failure; I50.9 Heart failure, unspecified; M54.9 Dorsalgia, unspecified; G47.33 Obstructive sleep apnea (adult) (pediatric); Z99.81 Dependence on supplemental oxygen; I25.2 Old myocardial infarction; Z79.02 Long term (current) use of antithrombotics/antiplatelets; Z79.890 Hormone replacement therapy; Z79.899 Other long term (current) drug therapy; Z87.891 Personal history of nicotine dependence; Z86.73 Personal history of transient ischemic attack (TIA), and cerebral infarction without residual deficits; Z89.521 Acquired absence of right knee
CPT/HCPCS: 96374; 99285; 71046; 80048; 84484; 85025; 87631; 93005; 94640; A4216

== ENCOUNTER 2024-05-22 12:05 | Inpatient (IN) | payer MEDICARE, SELFPAY ==
[2024-05-22] VITALS (7 sets, daily range): BP systolic 121–141; BP diastolic 71–80; PULSE 78–93; RESP 16–26; TEMP 36.2–37.2; O2SAT 95–98; BMI 22.9; BMI 20.9
--- NOTE | 2024-05-22 12:25 | CT_ITS ---
EXAM: CT HEAD WITHOUT INTRAVENOUS CONTRAST CLINICAL INDICATION: Confusion. TECHNIQUE: Multiple axial images were obtained of the head without intravenous contrast. This CT exam was performed using one or more of the following dose reduction techniques: automated exposure control, adjustment of the mA and/or kV according to patient size, and/or use of iterative reconstruction technique. RADIATION DOSE: CTDIvol = 44.99 mGy, DLP = 796.11 mGy-cm COMPARISON: CT head without contrast 03/11/2024. FINDINGS: BRAIN AND EXTRA-AXIAL SPACES: Calcified plaques in the intradural segment of the right vertebral artery. Calcified plaques in the cavernous segments of both internal carotid arteries. No intracranial bleeding. No acute ischemic infarcts. No intracranial mass or mass effect. Posterior fossa structures are unremarkable. Ventricles are appropriate for age. No hydrocephalus. Basal cisterns are patent. BONES/JOINTS: Unremarkable. No discrete lytic or blastic abnormalities. SINUSES: Unremarkable as visualized. Clear. MASTOID AIR CELLS: Unremarkable. Clear. ORBITS: Visualized globes, extraocular muscles, optic nerves and retrobulbar fat appear unremarkable. CT/Brain/Head without Contrast IMPRESSION: No CT evidence of intracranial bleeding, acute ischemic infarct or acute intracranial abnormality. No significant interval changes when compared to 03/11/2024. Electronically Signed: Damon Suazo MD at 14:01 EST ,
--- NOTE | 2024-05-22 12:25 | EKG12_ITS ---
Test Reason : CONFUSED Blood Pressure : */* mmHG Vent. Rate : 87 BPM Atrial Rate : * BPM P-R Int : * ms QRS Dur : 92 ms QT Int : 384 ms P-R-T Axes : * 61 104 degrees QTcB Int : 462 ms Normal sinus rhythm Possible Inferior infarct , age undetermined Cannot rule out Anterior infarct , age undetermined Abnormal ECG Confirmed by ITZ HIRSCH, CHRISTIAN ([id number]), editor index DAKOTAH DELVALLE ([id number]) on 05/24/2024 6:16:33 AM Referred By: Confirmed By: CHRISTIAN MOBLEY MD
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
[2024-05-22 12:41] LABS: Mucous, Urine 0 SEEN /hpf (<or=2+)
[2024-05-22 12:44] LABS: Color, Urine Yellow (Yellow); Glucose, Dipstick Normal (Normal); Ketone-Dipstick Negative (Negative); Leukocyte Esterase-Dipstick 25 /ul (Negative); Nitrite-Dipstick Negative (Negative); Occult Blood-Urine 10 /ul (Negative); Protein-Dipstick 30 mg/dl (Negative); Urine Clarity Clear (Clear); Urine Urobilinogen 1 mg/dl (Normal)
[2024-05-22 12:45] LABS: Urine Bilirubin Dipstick 1 mg/dL (Negative)
[2024-05-22 12:46] LABS: Absolute Lymphocyte Count 2.12 X10^3/uL (0.83-4.51); Basophil# 0.06 X10^3/uL; Basophil% 0.5 % (0-1); Eosinophil# 0.03 X10^3/uL; Eosinophils% 0.2 % (0-5); Hematocrit 35.8 % (37-47); Hemoglobin 11.1 g/dL (12.0-15.0); Lymphocyte # 2.12 X10^3/ul (0.83-4.51); Lymphocyte % 17.6 % (19-41); Mean Corpuscular Hgb 26.5 pg (27.0-32.0); Mean Corpuscular Volume 85.4 fL (81-99); Mean Platelet Vol. 9.3 fl (6.2-12.0); Monocyte# 0.78 X10^3/uL; Monocyte% 6.5 % (0-10); NRBC Flagged by Analyzer 0 % (0-5); Neutrophil # 8.97 X10^3/uL (2.7-7.7); Neutrophil % 74.7 % (47-70); POSITIVE MORPHOLOGY YES; Platelet Count 554 K/mm3 (150-450); RBC Distribution Width CV 23.9 % (11.6-14.6); RBC Distribution Width SD 73.7 fl (35.1-43.9); Red Blood Count 4.19 M/mm3 (4.2-5.4)
--- NOTE | 2024-05-22 12:50 | RAD_ITS ---
EXAM: XR CHEST, 1 VIEW CLINICAL INDICATION: weakness TECHNIQUE: Frontal view of the chest. COMPARISON: 05/19/2024. FINDINGS: LUNGS AND PLEURAL SPACES: Mild bibasilar fibrosis. No suspicious infiltrates, consolidation or edema. No pneumothorax. No effusion. HEART: Unremarkable. Cardiac silhouette not enlarged. MEDIASTINUM: Central airways and mediastinal contour are unremarkable. BONES/JOINTS: Metallic rods and pedicular screws in the lower thoracic spine down to the lumbar spine. Old bilateral lower rib fractures. SOFT TISSUES: Unremarkable. RAD/Chest 1 View (Portable) IMPRESSION: No acute cardiopulmonary pathology and no significant interval change when compared to 05/19/2024. Electronically Signed: Damon Suazo MD at 14:02 EST ,
[2024-05-22 12:52] LABS: Bacteria 2+ /hpf (None Seen); Red Blood Cells-Urine 0-5 SEEN /hpf (0-5); Squamous Epithelial Cells - UA 0-5 SEEN /hpf (5-10); White Blood Cells 5-10 SEEN /hpf (0-5)
[2024-05-22 12:53] LABS: Differential Indicated SCAN CRITERIA MET
[2024-05-22 12:54] LABS: Blood Gas Specimen Type VEN; O2 Delivery Device Cannula; SITE Not entered; VBG BASE EXCESS 2 mmol/L (-1.0-3.5); VBG Bicarbonate 27 mmol/L (22-26); VBG PO2 32 mmHg (25-40); VBG SO2 58 % (50-70); VBG TCO2 29 mmol/L (23-33); VBG pCO2 48.5 mmHg (41-51); VBG pH 7.36 (7.32-7.42)
[2024-05-22 12:56] LABS: Alcohol, Blood (Medical)-Serum < 3.0 mg/dL
[2024-05-22 13:06] LABS: ALB/GLOB Ratio 0.7 RATIO (0.9-2.4); AST(SGOT) 17 U/L (15-37); Alanine Aminotransfer ALT/SGPT 19 U/L (13-56); Albumin, Serum 2.9 g/dL (3.2-5.0); Alkaline Phosphatase 83 U/L (45-117); Anion Gap 7 (5-15); BUN 16 mg/dL (7-18); BUN/Creat Ratio 17.1 RATIO (10-20); Calcium,Total 9.2 mg/dL (8.5-10.1); Chloride 105 mmol/L (98-107); Creatinine, Serum 0.94 mg/dL (0.55-1.02); EST Glomerular Filtration Rate 63 mL/min (>60); Est Glom Filt Rate - Afr Amer 76 mL/min (>60); Estimated Creatinine Clearance 41.14 ml/min; Globulin 4.4 g/dL (2.2-4.2); Glucose 132 mg/dL (74-106); Potassium 3.1 mmol/L (3.5-5.1); Protein, Total 7.3 g/dL (6.4-8.2); Sodium Level 141 mmol/L (136-145)
[2024-05-22 13:07] LABS: Amphetamine Urine NEGATIVE (<1000 ng/mL); Barbiturate Urine VISTA NEGATIVE (< 200 ng/mL); Benzodiazepine Urine VISTA NEGATIVE (< 200 ng/mL); Cocaine Urine VISTA NEGATIVE (< 300 ng/mL); Ecstacy Urine VISTA NEGATIVE (< 500 ng/mL); Methadone Urine VISTA NEGATIVE (< 300 ng/mL); PCP Urine VISTA NEGATIVE (< 25 ng/mL); THC Urine VISTA NEGATIVE (< 50 ng/mL); Vista UDS pH Range 5
[2024-05-22] MEDS: Ceftriaxone 1 GM/50 ML BAG IV (13:37)
[2024-05-22 13:42] LABS: Anisocytosis 3+; Differential Comment SCANNED; Macrocytosis 1+; Microcytosis 1+; Platelet Estimate MOD INC (ADEQ)
[2024-05-22 13:43] LABS: Target Cells RARE
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
[2024-05-22] MEDS: Potassium Chloride Oral Tablet 20 MEQ 40 MEQ PO (15:04)
--- NOTE | 2024-05-22 15:06 | ED.RN ---
unable to complete med rec dut to dr. shah in chart
[2024-05-22] MEDS: 0.9% Normal Saline (1000mL) 1,000 ML 50 ML IV (16:36)
[2024-05-22] MEDS: Ipratropium 0.5 MG/2.5 ML SOLUTION INHALATION (19:37)
[2024-05-22] MEDS: Budesonide Respules 0.5 MG/2 ML AMPUL.NEB. INHALATION (19:38)
[2024-05-22] MEDS: Acetaminophen 325 MG Tablet 650 MG PO (20:16)
[2024-05-22] MEDS: busPIRone 5 MG Tablet 10 MG PO (20:16)
[2024-05-22] MEDS: Sucralfate 1 GM Tablet PO (20:17)
[2024-05-22] MEDS: DULoxetine Hcl 60 MG Capsule PO (20:17)
[2024-05-22] MEDS: Atorvastatin Calcium 80 MG Tablet PO (20:17)
[2024-05-22] MEDS: Mirtazapine 15 MG Tablet PO (20:17)
[2024-05-22] MEDS: Pantoprazole Sodium 40 MG Tablet PO (20:17)
[2024-05-22] MEDS: Metoprolol Tartrate 25 MG Tablet PO (20:17)
[2024-05-22] MEDS: MELATONIN 3 MG TABLET PO (20:20)
[2024-05-23] VITALS (9 sets, daily range): BP systolic 128–142; BP diastolic 62–81; PULSE 57–76; RESP 16–20; TEMP 36.6–37; O2SAT 92–98
[2024-05-23] MEDS: Levothyroxine 75 MCG Tablet PO (05:31)
[2024-05-23] MEDS: Acetaminophen 325 MG Tablet 650 MG PO (05:31)
[2024-05-23] MEDS: Sucralfate 1 GM Tablet PO ×4 (05:31→21:00)
[2024-05-23] MEDS: Budesonide Respules 0.5 MG/2 ML AMPUL.NEB. INHALATION ×2 (07:11→20:26)
[2024-05-23] MEDS: Ipratropium 0.5 MG/2.5 ML SOLUTION INHALATION ×3 (07:11→20:25)
[2024-05-23 07:14] LABS: Absolute Lymphocyte Count 1.71 X10^3/uL (0.83-4.51); Absolute Neutrophil Count 5.4 X10^3/uL (2.0-7.7); Basophil# 0.04 X10^3/uL; Basophil% 0.5 % (0-1); Eosinophil# 0.08 X10^3/uL; Hematocrit 31.5 % (37-47); Hemoglobin 9.5 g/dL (12.0-15.0); Lymphocyte # 1.71 X10^3/ul (0.83-4.51); Lymphocyte % 22.2 % (19-41); Mean Corp Hgb Conc 30.2 g/dL (32-36); Mean Corpuscular Hgb 26.4 pg (27.0-32.0); Mean Corpuscular Volume 87.5 fL (81-99); Monocyte# 0.45 X10^3/uL; Monocyte% 5.8 % (0-10); NRBC Flagged by Analyzer 0 % (0-5); Neutrophil # 5.41 X10^3/uL (2.7-7.7); Neutrophil % 70.4 % (47-70); POSITIVE MORPHOLOGY YES; Platelet Count 467 K/mm3 (150-450); RBC Distribution Width CV 23.5 % (11.6-14.6); RBC Distribution Width SD 75.6 fl (35.1-43.9); White Blood Count 7.7 K/mm3 (4.4-11.0)
[2024-05-23 07:24] LABS: Differential Indicated SCAN CRITERIA MET
--- NOTE | 2024-05-23 07:26 | PN.HOSP_ITS ---
Reason for Visit Reason for Visit: Diagnoses Disorientation, unspecified (05/22/24) Subjective Subjective Patient is a 68-year-old female who was brought to the emergency department with increasing confusion and paranoia. Workup did reveal mild cystitis Objective Data Objective Data Vital Signs: Vital Signs Temp Pulse Resp BP Pulse Ox O2 Del Method O2 Flow Rate 97.8 F 57 L 18 142/77 H 98 Nasal Cannula 4 05/23/24 02:15 05/23/24 02:15 05/23/24 02:15 05/23/24 02:15 05/23/24 02:15 05/23/24 02:15 05/23/24 02:15 Oxygen Flow Rate (L/min) 4 Oxygen Delivery Method Nasal Cannula Weight: 47.2 kg Body Mass Index (BMI) 20.9 Intake & Output: Intake and Output for Last 24 Hours 05/21/24 05/22/24 05/23/24 23:59 23:59 23:59 Intake Total 170 / 170 Output Total 250 / 250 Balance 170 / 170 -250 / -250 Lab / Micro Data 05/23/24 06:56 05/23/24 06:56 Labs: Laboratory Results - last 24 hr 05/22/24 12:34: Urine Color Yellow, Urine Clarity Clear, Urine pH 5.0, Ur Specific [place] 1.020, Urine Protein 30 H, Urine Glucose (UA) Normal, Urine Ketones Negative, Urine Occult Blood 10 H, Urine Nitrite Negative, Urine Bilirubin 1 H, Urine Urobilinogen 1 H, Ur Leukocyte Esterase 25 H, Urine RBC 0-5 SEEN, Urine WBC 5-10 SEEN, Ur Squamous Epith Cells 0-5 SEEN, Urine Bacteria 2+, Urine Mucus 0 SEEN, Urine Opiates Screen POSITIVE H, Urine Methadone Screen NEGATIVE, Ur Barbiturates Screen NEGATIVE, Ur Phencyclidine Scrn NEGATIVE, Ur Amphetamines Screen NEGATIVE, MDMA (Ecstasy) Screen NEGATIVE, U Benzodiazepines Scrn NEGATIVE, Urine Cocaine Screen NEGATIVE, U Cannabinoids Screen NEGATIVE, Ur Drug Screen Comment 05/22/24 12:37: WBC 12.0 H, RBC 4.19 L, Hgb 11.1 L, Hct 35.8 L, MCV 85.4, MCH 26.5 L, MCHC 31.0 L, RDW Std Deviation 73.7 H, RDW Coeff of Genaro 23.9 H, Plt Count 554 H, MPV 9.3, Immature Gran % (Auto) 0.500, Neut % (Auto) 74.7 H, Lymph % (Auto) 17.6 L, [place] % (Auto) 6.5, Eos % (Auto) 0.2, Baso % (Auto) 0.5, A bsolute Neuts (auto) 9.0 H, Absolute Lymphs (auto) 2.12, Nucleated RBC % 0, Differential Comment SCANNED, Platelet Estimate MOD INC, Anisocytosis 3+, Microcytosis 1+, Macrocytosis 1+, Target Cells RARE, Sodium 141, Potassium 3.1 L , Chloride 105, Carbon Dioxide 28.0, Anion Gap 7, BUN 16, Creatinine 0.94, Estim Creat Clear Calc 41.14, Est GFR (MDRD) Af Amer 76, Est GFR (MDRD) Non-Af 63, BUN/Creatinine Ratio 17.1, Glucose 132 H, Calcium 9.2, Total Bilirubin 0.30, AST 17, ALT 19, Alkaline Phosphatase 83, Total Protein 7.3, Albumin 2.9 L, Globulin 4.4 H, Albumin/Globulin Ratio 0.7 L, Ethyl Alcohol < 3.0 05/23/24 06:56: WBC 7.7, RBC 3.60 L, Hgb 9.5 L, Hct 31.5 L, MCV 87.5, MCH 26.4 L , MCHC 30.2 L, RDW Std Deviation 75.6 H, RDW Coeff of [place]aro 23.5 H, Plt Count 467 H, MPV 9.0, Immature Gran % (Auto) 0.100, Neut % (Auto) 70.4 H, Lymph % (Auto) 22.2, [place] % (Auto) 5.8, Eos % (Auto) 1.0, Baso % (Auto) 0.5, Absolute Neuts (auto) 5.4, Absolute Lymphs (auto) 1.71, Nucleated RBC % 0 ABG Data ABG results: ABG 05/22/24 12:50 Specimen Type CHANTEL Sample Site Not entered O2 % 3.0 VBG pH 7.36 VBG pO2 32 VBG HCO3 27 H VBG Total CO2 29 VBG O2 Sat (Calc) 58 VBG Base Excess 2 POC Mix VBG pCO2 Pt Tmp 48.5 O2 Delivery Device Cannula Radiography Diagnostic Testing: Radiology Impression Brain CT 05/22/24 12:25 IMPRESSION: No CT evidence of intracranial bleeding, acute ischemic infarct or acute intracranial abnormality. No significant interval changes when compared to 03/11/2024. Electronically Signed: Damon Suazo MD at 14:01 EST , Chest X-Ray 05/22/24 12:50 IMPRESSION: No acute cardiopulmonary pathology and no significant interval change when compared to 05/19/2024. Electronically Signed: Damon Suazo MD at 14:02 EST , Physical Exam Narrative GENERAL: cooperative HEENT: Atraumatic; normocephalic EYES; Anicteric, Normal Conjunctiva NECK; supple, normal thyroid, RESPIRATORY: Diminished to auscultation CARDIOVASCULAR: Regular S1 S2, GI: soft, normoactive bowel sounds, : No Renal angle tenderness; EXTREMITIES: No edema, no clubbing, MUSCULOSKELETAL: no muscle wasting NEURO: Awake; no lateralizing signs. SKIN: No Rash PSYCH; Flat affect Assessment & Plan Assessment/Plan (1) Acute delirium: PLAN: Plan Patient is a 68-year-old female who was brought to the emergency department with increasing confusion and paranoia. Workup did reveal mild cystitis 1. Acute encephalopathy ? A combination of metabolic encephalopathy from cystitis as well as toxic encephalopathy from polypharmacy. 2. Toxic encephalopathy ? From polypharmacy patient medication list included lorazepam, amitriptyline, baclofen, BuSpar, cyclobenzaprine, duloxetine, hydroxyzine, mirtazapine, Topamax as well as cough syrup? Codeine UDS did reveal positive opiates. Medications adjusted with continuation of mirtazapine duloxetine and BuSpar and Ativan as needed to prevent withdrawal 3. Acute cystitis ? Patient started on ceftriaxone cultures sent we will follow-up on result 4. Chronic hypoxic respiratory failure ? Secondary to COPD patient is on baseline oxygen 4 L at rest. 5. COPD ? Without acute exacerbation did continue patient bronchodilator treatment regimen 6. Coronary artery disease ? With previous PCI patient is on guideline directed medical therapy continue 7. Hypothyroidism ? Patient is on levothyroxine home dose continued 8. GERD ? On PPI 9. Hypokalemia -corrected for protocol repeat labs ordered for monitoring 10 . DVT prophylaxis ? On enoxaparin Time spent in the patient's overall evaluation,decision-making process, review of diagnostic data, adjustment of management, discussion with other providers, nursing nursing and ancillary staff involved in patient's care documentation, 50 Minutes Charges/Coding Visit Charges Inpatient E&M: 50486 [place] [id number]
[2024-05-23 08:03] LABS: Anion Gap 3 (5-15); BUN 15 mg/dL (7-18); BUN/Creat Ratio 19.7 RATIO (10-20); Calcium,Total 8.3 mg/dL (8.5-10.1); Chloride 110 mmol/L (98-107); Creatinine, Serum 0.76 mg/dL (0.55-1.02); EST Glomerular Filtration Rate 80 mL/min (>60); Est Glom Filt Rate - Afr Amer 97 mL/min (>60); Estimated Creatinine Clearance 48.34 ml/min; Glucose 92 mg/dL (74-106); Potassium 3.8 mmol/L (3.5-5.1); Sodium Level 138 mmol/L (136-145)
[2024-05-23 09:02] LABS: Anisocytosis RARE
[2024-05-23] MEDS: busPIRone 5 MG Tablet 10 MG PO ×2 (09:27→21:00)
[2024-05-23] MEDS: Clopidogrel Bisulfate 75 MG Tablet PO (09:27)
[2024-05-23] MEDS: Ceftriaxone 1 GM/50 ML BAG IV (09:27)
[2024-05-23] MEDS: Pantoprazole Sodium 40 MG Tablet PO ×2 (09:28→21:00)
[2024-05-23] MEDS: DULoxetine Hcl 60 MG Capsule PO ×2 (09:28→21:00)
[2024-05-23] MEDS: Enoxaparin 40 MG/0.4 ML Syringe SC (09:28)
[2024-05-23] MEDS: Liothyronine 5 MCG Tablet 10 MCG PO (09:28)
[2024-05-23] MEDS: Metoprolol Tartrate 25 MG Tablet PO ×2 (09:31→21:00)
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
[2024-05-23] MEDS: LORazepam 0.5 MG Tablet PO (14:07)
--- NOTE | 2024-05-23 14:25 | CASEMGMT ---
Discharge Planning A list of SNF providers including quality and resource use data and consistent with the patient's preferred geographic region, medical needs, and insurance network was created in [facility].? This list was provided to the SW. Claire Luu Discharge Planning Asst.
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
[2024-05-23] MEDS: 0.9% Saline Lock 10 ML Syringe IV (20:59)
[2024-05-23] MEDS: Mirtazapine 15 MG Tablet PO (21:00)
[2024-05-23] MEDS: Atorvastatin Calcium 80 MG Tablet PO (21:00)
[2024-05-24] VITALS (7 sets, daily range): BP systolic 133–144; BP diastolic 69–71; PULSE 66–97; RESP 16–20; TEMP 36.5–36.8; O2SAT 90–98
[2024-05-24] MEDS: Sucralfate 1 GM Tablet PO ×2 (06:34→11:48)
[2024-05-24] MEDS: Levothyroxine 75 MCG Tablet PO (06:34)
[2024-05-24] MEDS: Budesonide Respules 0.5 MG/2 ML AMPUL.NEB. INHALATION (06:49)
[2024-05-24] MEDS: Ipratropium 0.5 MG/2.5 ML SOLUTION INHALATION ×2 (06:49→12:55)
[2024-05-24] MEDS: Albuterol 2.5 MG/3 ML VIAL.NEB. INHALATION ×2 (06:49→12:55)
--- NOTE | 2024-05-24 08:17 | PCM.PN.HOSP ---
Reason for Visit Reason for Visit: Diagnoses Disorientation, unspecified (05/22/24) Subjective Subjective Patient urine cultures positive for Enterococcus faecalis. Adjusted antibiotic therapy. Patient seen complaining of intractable pain. When asked to give details she said it was all over from her scalp to her 2. They discussed with case management about consulting crisis for possible inpatient psych placement Objective Data Objective Data Vital Signs: Vital Signs Temp Pulse Resp BP Pulse Ox O2 Del Method O2 Flow Rate 98.0 F 66 16 144/69 H 94 Nasal Cannula 2 05/24/24 02:14 05/24/24 02:14 05/24/24 02:14 05/24/24 02:14 05/24/24 02:14 05/24/24 02:15 05/24/24 02:15 Oxygen Flow Rate (L/min) 2 Oxygen Delivery Method Nasal Cannula Weight: 47.2 kg Body Mass Index (BMI) 20.9 Intake & Output: Intake and Output for Last 24 Hours 05/22/24 05/23/24 05/24/24 23:59 23:59 23:59 Intake Total 170 / 170 795 / 1170 700 / 700 Output Total 250 / 650 800 / 800 Balance 170 / 170 545 / 520 -100 / -100 Medical Nutrition Assessment Dietitian: Malnutrition Criteria Met Start: 05/23/24 11:31 Freq: Status: Active Protocol: Document 05/23/24 11:31 RMA (Rec: 05/23/24 11:31 RMA [id number]) Nutrition Malnutrition Evidence of Malnutrition Exists Yes Malnutrition (severe): Chronic Evidenced By Suboptimal Energy Intake ( Severe),Weight Loss (Severe) Clinical Problem Chronic Disease or Condition Related Malnutrition Etiology severe protein-calorie malnutrition in the context of chronic disease related to inadequate energy intake and increased energy expenditure Signs/Symptoms as evidenced by >20% unintentional weight loss x 12 months and PO meeting less than 75% estimated nutrition needs x 6-12 months; BMI 21.0 Status Active Problem Recommendation Dietitian Recommendations/Changes Will liberalize diet to regular/no added salt given signs/symptoms of malnutrition . Will add ensure compact w/ meals. Will add magic cup w/ lunch and dinner tray. Trend weights and adjust ONS as needed to optimize PO and prevent further weight loss. Lab / Micro Data 05/23/24 06:56 05/24/24 07:24 Labs: Laboratory Results - last 24 hr 05/23/24 06:56: Anisocytosis RARE Micro: Microbiology 05/22/24 12:34 Urine, Catheterized Urine Culture - Final Enterococcus faecalis Physical Exam Narrative GENERAL: cooperative HEENT: Atraumatic; normocephalic EYES; Anicteric, Normal Conjunctiva NECK; supple, normal thyroid, RESPIRATORY: Diminished to auscultation CARDIOVASCULAR: Regular S1 S2, GI: soft, normoactive bowel sounds, : No Renal angle tenderness; EXTREMITIES: No edema, no clubbing, MUSCULOSKELETAL: no muscle wasting NEURO: Awake; no lateralizing signs. SKIN: No Rash PSYCH; Flat affect Assessment & Plan Assessment/Plan (1) Acute delirium: PLAN: Plan Patient is a 68-year-old female who was brought to the emergency department with increasing confusion and paranoia. Workup did reveal mild cystitis 1. Acute encephalopathy ? A combination of metabolic encephalopathy from cystitis as well as toxic encephalopathy from polypharmacy. 2. Toxic encephalopathy ? From polypharmacy patient medication list included lorazepam, amitriptyline, baclofen, BuSpar, cyclobenzaprine, duloxetine, hydroxyzine, mirtazapine, Topamax as well as cough syrup? Codeine UDS did reveal positive opiates. Medications adjusted with continuation of mirtazapine duloxetine and BuSpar and Ativan as needed to prevent withdrawal 3. Acute cystitis with Enterococcus faecalis. ? Patient started on ceftriaxone cultures sent we will follow-up on result -05/24/2024;Patient urine cultures positive for Enterococcus faecalis. Adjusted antibiotic therapy. Discontinued ceftriaxone started patient on linezolid given her reported allergies to penicillin. Patient was on Remeron and buspirone as well as duloxetine discontinued given the potential interactions 4. Chronic hypoxic respiratory failure ? Secondary to COPD patient is on baseline oxygen 4 L at rest. 5. COPD ? Without acute exacerbation did continue patient bronchodilator treatment regimen 6. Coronary artery disease ? With previous PCI patient is on guideline directed medical therapy continue 7. Hypothyroidism ? Patient is on levothyroxine home dose continued 8. GERD ? On PPI 9. Hypokalemia -corrected for protocol repeat labs ordered for monitoring 10 . DVT prophylaxis ? On enoxaparin 11. Paranoia ? Patient medically stable to be assessed by crisis for possible placement Time spent in the patient's overall evaluation,decision-making process, review of diagnostic data, adjustment of management, discussion with other providers, nursing nursing and ancillary staff involved in patient's care documentation, 35 Minutes Charges/Coding Visit Charges Inpatient E&M: 38059 Subs Hosp L2
[2024-05-24 08:28] LABS: Anion Gap 7 (5-15); BUN 13 mg/dL (7-18); BUN/Creat Ratio 17.1 RATIO (10-20); Calcium,Total 9.4 mg/dL (8.5-10.1); Chloride 104 mmol/L (98-107); Creatinine, Serum 0.76 mg/dL (0.55-1.02); EST Glomerular Filtration Rate 80 mL/min (>60); Est Glom Filt Rate - Afr Amer 97 mL/min (>60); Estimated Creatinine Clearance 48.34 ml/min; Glucose 115 mg/dL (74-106); Magnesium 1.8 mg/dL (1.6-2.6); Phosphorus 2.9 mg/dL (2.5-4.9); Potassium 3.6 mmol/L (3.5-5.1); Sodium Level 137 mmol/L (136-145)
[2024-05-24 09:19] LABS: Absolute Lymphocyte Count 2.05 X10^3/uL (0.83-4.51); Absolute Neutrophil Count 5.9 X10^3/uL (2.0-7.7); Basophil# 0.05 X10^3/uL; Basophil% 0.6 % (0-1); Eosinophil# 0.13 X10^3/uL; Eosinophils% 1.5 % (0-5); Hematocrit 35.9 % (37-47); Hemoglobin 10.7 g/dL (12.0-15.0); Lymphocyte # 2.05 X10^3/ul (0.83-4.51); Lymphocyte % 23.8 % (19-41); Mean Corp Hgb Conc 29.8 g/dL (32-36); Mean Corpuscular Hgb 25.7 pg (27.0-32.0); Mean Corpuscular Volume 86.1 fL (81-99); Mean Platelet Vol. 9.4 fl (6.2-12.0); Monocyte# 0.44 X10^3/uL; Monocyte% 5.1 % (0-10); NRBC Flagged by Analyzer 0 % (0-5); Neutrophil # 5.93 X10^3/uL (2.7-7.7); Neutrophil % 68.7 % (47-70); POSITIVE MORPHOLOGY YES; Platelet Count 565 K/mm3 (150-450); RBC Distribution Width CV 23.1 % (11.6-14.6); RBC Distribution Width SD 72.6 fl (35.1-43.9); Red Blood Count 4.17 M/mm3 (4.2-5.4); White Blood Count 8.6 K/mm3 (4.4-11.0)
[2024-05-24 09:27] LABS: Differential Indicated SCAN CRITERIA MET
--- NOTE | 2024-05-24 10:10 | CASEMGMT ---
Social Work SW called Crisis, spoke w/Raine. SW faxed over referral, crisis called to say Sarah will be here to see pt. SW will continue to follow. VERNON Ware
[2024-05-24] MEDS: Linezolid 600 MG Tablet PO (10:11)
[2024-05-24] MEDS: Acetaminophen 325 MG Tablet 650 MG PO (10:12)
[2024-05-24] MEDS: LORazepam 0.5 MG Tablet PO (10:12)
[2024-05-24] MEDS: 0.9% Saline Lock 10 ML Syringe IV (10:12)
[2024-05-24 10:31] LABS: Anisocytosis 2+; Macrocytosis 1+; Platelet Estimate MOD DEC (ADEQ)
[2024-05-24] MEDS: Liothyronine 5 MCG Tablet 10 MCG PO (10:37)
[2024-05-24] MEDS: Metoprolol Tartrate 25 MG Tablet PO (10:37)
[2024-05-24] MEDS: Clopidogrel Bisulfate 75 MG Tablet PO (10:38)
[2024-05-24] MEDS: Pantoprazole Sodium 40 MG Tablet PO (10:39)
[2024-05-24] MEDS: Enoxaparin 40 MG/0.4 ML Syringe SC (10:40)
--- NOTE | 2024-05-24 11:56 | CASEMGMT ---
Social Work residential support worker Sarah met w/pt, then called pt's son. Pt is cleared by crisis, does not need eve-psych at this time. SW will follow up w/pt and son for appropriate discharge plan. VERNON Ware
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
--- NOTE | 2024-05-24 14:28 | DS.PCM_ITS ---
Providers Date of Admission: 05/22/24 Date of Discharge: 05/24/24 Primary Care Physician: Dr. Chrystal Michel, DO Reason For Visit: CONFUSION, PARANOIA, POSSIBLE UTI Diagnosis Discharge Diagnosis (1) Acute delirium: Status: Acute Code(s): R41.0 - Disorientation, unspecified Plan Patient is a 68-year-old female who was brought to the emergency department with increasing confusion and paranoia. Workup did reveal mild cystitis 1. Acute encephalopathy ? A combination of metabolic encephalopathy from cystitis as well as toxic encephalopathy from polypharmacy. 2. Toxic encephalopathy ? From polypharmacy patient medication list included lorazepam, amitriptyline, baclofen, BuSpar, cyclobenzaprine, duloxetine, hydroxyzine, mirtazapine, Topamax as well as cough syrup? Codeine UDS did reveal positive opiates. Medications adjusted with continuation of mirtazapine duloxetine and BuSpar and Ativan as needed to prevent withdrawal 3. Acute cystitis with Enterococcus faecalis. ? Patient started on ceftriaxone cultures sent we will follow-up on result -05/24/2024;Patient urine cultures positive for Enterococcus faecalis. Adjusted antibiotic therapy. Discontinued ceftriaxone started patient on linezolid given her reported allergies to penicillin. Patient was on Remeron and buspirone as well as duloxetine discontinued given the potential interactions 4. Chronic hypoxic respiratory failure ? Secondary to COPD patient is on baseline oxygen 4 L at rest. 5. COPD ? Without acute exacerbation did continue patient bronchodilator treatment regimen 6. Coronary artery disease ? With previous PCI patient is on guideline directed medical therapy continue 7. Hypothyroidism ? Patient is on levothyroxine home dose continued 8. GERD ? On PPI 9. Hypokalemia -corrected for protocol repeat labs ordered for monitoring 10 . DVT prophylaxis ? On enoxaparin 11. Paranoia ? Patient medically stable to be assessed by crisis for possible placement ? Patient was seen and assessed by crisis was deemed safe to be discharged home. Case management to make Adult Protective Services referrals as soon as Time spent in the patient's overall evaluation,decision-making process, review of diagnostic data, adjustment of management, discussion with other providers, nursing nursing and ancillary staff involved in patient's care documentation, 35 Minutes Medications at Discharge Home Medications atorvastatin 80 mg tablet 80 mg PO QHS cholesterol 06/01/13 clopidogrel 75 mg tablet 75 mg PO DAILY anti platelet 06/01/13 lorazepam 1 mg tablet (Ativan) 1 mg PO TID PRN Anxiety 11/17/18 duloxetine 60 mg capsule,delayed release 60 mg PO BID DEPRESSION 06/19/20 furosemide 40 mg tablet 40 mg PO DAILY water pill 08/23/22 liothyronine 5 mcg tablet 10 mcg PO DAILY HYPOTHYROIDISM 08/23/22 pantoprazole 40 mg tablet,delayed release 40 mg PO BID ACID REFLEX 30 days #60 tabs 05/06/23 metoprolol tartrate 25 mg tablet 25 mg PO Q12H blood pressure 10/09/23 acetaminophen 500 mg tablet 500 mg PO Q6H PRN pain 11/05/23 tiotropium bromide 2.5 mcg/actuation mist for inhalation (Spiriva Respimat) 2 inh inhalation DAILY LUNGS #3 ea 02/02/24 buspirone 10 mg tablet 10 mg PO BID ANXIETY 02/09/24 diclofenac sodium 75 mg tablet,delayed release 75 mg PO BID see phyisican 02/09/24 sucralfate 100 mg/mL oral suspension 10 ml PO ACHS FOR STOMACH 02/09/24 topiramate 50 mg tablet 50 mg PO QHS SLEEP 02/09/24 montelukast 10 mg tablet 10 mg PO QPM allergies #90 tabs 02/15/24 albuterol sulfate 90 mcg/actuation aerosol inhaler 2 puff inhalation Q4H PRN COPD 03/11/24 amitriptyline 10 mg tablet 10 mg PO DAILY nerve pain 03/11/24 ipratropium 0.5 mg-albuterol 3 mg (2.5 mg base)/3 mL nebulization soln 3 ml inhalation .Q4-6H PRN shortness of breath or wheezing 03/11/24 levothyroxine 50 mcg tablet 50 mcg PO SUSA thyroid 03/11/24 levothyroxine 75 mcg tablet 75 mcg PO MOTUWETHFR THYROID 03/11/24 mometasone-formoterol HFA 200 mcg-5 mcg/actuation aerosol inhaler (Dulera) 2 puff inhalation BID COPD 04/26/24 mirtazapine 15 mg tablet 15 mg PO QHS sleep #30 tabs 05/17/24 prednisone 20 mg tablet 40 mg (2 x 20 mg) PO DAILY 7 days #14 tabs 05/19/24 cholecalciferol (vitamin D3) 1,250 mcg (50,000 unit) capsule 1,250 mcg PO QWEEK 05/22/24 linezolid 600 mg tablet 600 mg PO BID 7 days #14 tabs 05/24/24 Physical Exam Narrative GENERAL: cooperative HEENT: Atraumatic; normocephalic EYES; Anicteric, Normal Conjunctiva NECK; supple, normal thyroid, RESPIRATORY: Diminished to auscultation CARDIOVASCULAR: Regular S1 S2, GI: soft, normoactive bowel sounds, : No Renal angle tenderness; EXTREMITIES: No edema, no clubbing, MUSCULOSKELETAL: no muscle wasting NEURO: Awake; no lateralizing signs. SKIN: No Rash PSYCH; Flat affect Medical Records Data Medical Nutrition Assessment Dietitian: Malnutrition Criteria Met Start: 05/23/24 11:31 Freq: Status: Active Protocol: Document 05/23/24 11:31 RMA (Rec: 05/23/24 11:31 RMA [id number]) Nutrition Malnutrition Evidence of Malnutrition Exists Yes Malnutrition (severe): Chronic Evidenced By Suboptimal Energy Intake ( Severe),Weight Loss (Severe) Clinical Problem Chronic Disease or Condition Related Malnutrition Etiology severe protein-calorie malnutrition in the context of chronic disease related to inadequate energy intake and increased energy expenditure Signs/Symptoms as evidenced by >20% unintentional weight loss x 12 months and PO meeting less than 75% estimated nutrition needs x 6-12 months; BMI 21.0 Status Active Problem Recommendation Dietitian Recommendations/Changes Will liberalize diet to regular/no added salt given signs/symptoms of malnutrition . Will add ensure compact w/ meals. Will add magic cup w/ lunch and dinner tray. Trend weights and adjust ONS as needed to optimize PO and prevent further weight loss. Weight / BMI Weight Weight: 47.2 kg Body Mass Index (BMI) 20.9 ABG / Lab / Microbiology Data 05/24/24 07:24 05/24/24 07:24 Laboratory: Laboratory Results - last 24 hr 05/24/24 07:24: WBC 8.6, RBC 4.17 L, Hgb 10.7 L, Hct 35.9 L, MCV 86.1, MCH 25.7 L, MCHC 29.8 L, RDW Std Deviation 72.6 H, RDW Coeff of [place] 23.1 H, Plt Count 565 H, MPV 9.4, Immature Gran % (Auto) 0.300, Neut % (Auto) 68.7, Lymph % (Auto) 23.8, [place] % (Auto) 5.1, Eos % (Auto) 1.5, Baso % (Auto) 0.6, Absolute Neuts (auto) 5.9, Absolute Lymphs (auto) 2.05, Nucleated RBC % 0, Platelet Estimate MOD DEC, Anisocytosis 2+, Macrocytosis 1+, Sodium 137, Potassium 3.6, Chloride 104, Carbon Dioxide 26.0, Anion Gap 7, BUN 13, Creatinine 0.76, Estim Creat Clear Calc 48.34, Est GFR (MDRD) Af Amer 97, Est GFR (MDRD) Non-Af 80, BUN/Creatinine Ratio 17.1, Glucose 115 H, Calcium 9.4, Phosphorus 2.9, Magnesium 1.8 Microbiology: Microbiology 05/22/24 12:34 Urine, Catheterized Urine Culture - Final Enterococcus faecalis D/C Instructions DC O2, CPAP, BIPAP Needs Home O2 Discharge instructions: No Meaningful Use Info Meaningful Use Meaningful Use Diagnoses (Choose all that apply): None applicable Ischemic Stroke Statin Dosing Therapy Reference: STATIN DOSE THERAPY REFERENCE: * Patients > 75 years receive moderate or high dose statin therapy. * Patients 75 years or YOUNGER should receive HIGH intensity statin dose unless contraindicated. You will be required to document reason for non-treatment if statin daily dose does not meet guidelines. HIGH DOSE STATIN THERAPY DAILY Atorvastatin > than or = to 40 mg Rosuvastatin > than or = to 20 mg Amlodipine + Atorvastatin > than or = to 2.5/40 mg Ezetimibe + Simvastatin 10/80 mg Simvastatin 80mg Discharge Plan Admission Admit Date/Time: 05/22/24 14:37 Attending Provider: Donnie Rogers Primary Care Provider: Chrystal Michel Consulting Providers: Allyssa Gardiner Discharge Orders/Prescriptions Prescriptions: New linezolid 600 mg Tablet 600 mg PO BID 7 Days Qty: 14 0RF Continued lorazepam [Ativan] 1 mg tablet 1 mg PO TID PRN (Reason: Anxiety) acetaminophen 500 mg tablet 500 mg PO Q6H PRN (Reason: pain) clopidogrel 75 MG tablet 75 mg PO DAILY atorvastatin 80 MG tablet 80 mg PO QHS metoprolol tartrate 25 mg tablet 25 mg PO Q12H furosemide 40 mg Tablet 40 mg PO DAILY Rx Instructions: take with 20mg tablet for a total of 60mg daily liothyronine 5 mcg tablet 10 mcg PO DAILY pantoprazole 40 mg Tablet,Delayed Release (Dr/Ec) 40 mg PO BID 30 Days Qty: 60 0RF sucralfate 100 mg/mL suspension 10 ml PO ACHS diclofenac sodium 75 mg tablet,delayed release (DR/EC) 75 mg PO BID topiramate 50 mg tablet 50 mg PO QHS prednisone 20 mg tablet 40 mg PO DAILY 7 Days Qty: 14 0RF cholecalciferol (vitamin D3) 1,250 mcg (50,000 unit) capsule 1,250 mcg PO QWEEK levothyroxine 50 mcg tablet 50 mcg PO SUSA amitriptyline 10 mg tablet 10 mg PO DAILY ipratropium-albuterol 0.5 mg-3 mg(2.5 mg base)/3 mL solution for nebulization 3 ml inhalation .Q4-6H PRN (Reason: shortness of breath or wheezing) levothyroxine 75 mcg tablet 75 mcg PO MOTUWETHFR albuterol sulfate 90 mcg/actuation HFA aerosol inhaler 2 puff INHALATION Q4H PRN (Reason: COPD) Dulera 200-5 mcg/actuation HFA aerosol inhaler 2 puff inhalation BID Spiriva Respimat 2.5 mcg/actuation mist 2 inh INHALATION DAILY Qty: 3 3RF montelukast 10 mg tablet 10 mg PO QPM Qty: 90 3RF mirtazapine 15 mg tablet 15 mg PO QHS Qty: 30 0RF Held duloxetine 60 MG capsule 60 mg PO BID Hold Instructions: Resume on 06/06/24. buspirone 10 mg tablet 10 mg PO BID Hold Instructions: Resume on 06/06/24. Discontinued baclofen 10 mg tablet 10 mg PO DAILY hydroxyzine HCl 50 mg tablet 50 mg PO QHS cyclobenzaprine 5 mg tablet 5 mg PO Q8H PRN (Reason: muscle spasms) temazepam 30 mg capsule 30 mg PO QHS PRN PRN (Reason: sleep) midodrine 5 mg tablet 5 mg PO TID Qty: 90 0RF Rx Instructions: do not give last dose of day after 6PM or within 4 hrs of bedtime prednisone 10 mg tablet 10 mg PO BID Qty: 9 0RF Rx Instructions: 1 twice a day for 3 days then 1/day for 3 days then stop Referrals / Follow Up: Chrystal Michel DO [Primary Care Provider] - Within 1 Week Disposition Disposition (needs filled in before D/C Order can be placed): Home, Self Care Charges/Coding Visit Charges Inpatient E&M: 02582 Disch Hosp >30min
--- NOTE | 2024-05-24 14:49 | CASEMGMT ---
TC to [facility] [place] pharmacy, no cost for linezolid or PA.
== END 2024-05-24 15:43 | disposition home or self-care (01) | DRG 689 ==
LOC: ED 13:04 → MS3 15:09
PROVIDERS: Physician Assistant; Admitting Provider Internal Medicine; Emergency Provider Emergency Medicine; PCP Family Medicine; Visit Provider Internal Medicine
DX: N39.0 Urinary tract infection, site not specified (principal); G92.8 Other toxic encephalopathy; E43 Unspecified severe protein-calorie malnutrition; J44.1 Chronic obstructive pulmonary disease with (acute) exacerbation; J96.11 Chronic respiratory failure with hypoxia; I11.0 Hypertensive heart disease with heart failure; D50.9 Iron deficiency anemia, unspecified; E89.0 Postprocedural hypothyroidism; Z89.519 Acquired absence of unspecified leg below knee; E87.6 Hypokalemia; K21.9 Gastro-esophageal reflux disease without esophagitis; I25.10 Atherosclerotic heart disease of native coronary artery without angina pectoris; M79.7 Fibromyalgia; I50.9 Heart failure, unspecified; G47.33 Obstructive sleep apnea (adult) (pediatric); M54.9 Dorsalgia, unspecified; I25.2 Old myocardial infarction; B95.2 Enterococcus as the cause of diseases classified elsewhere; F43.10 Post-traumatic stress disorder, unspecified; Z79.890 Hormone replacement therapy; Z79.51 Long term (current) use of inhaled steroids; Z79.02 Long term (current) use of antithrombotics/antiplatelets; Z87.891 Personal history of nicotine dependence; Z99.81 Dependence on supplemental oxygen; Z68.21 Body mass index [BMI] 21.0-21.9, adult; Z86.73 Personal history of transient ischemic attack (TIA), and cerebral infarction without residual deficits; T50.915A Adverse effect of multiple unspecified drugs, medicaments and biological substances, initial encounter; Z79.899 Other long term (current) drug therapy; Z89.521 Acquired absence of right knee
CPT/HCPCS: 36415; 70450; 71045; 71046; 80048; 80053; 80307; 81001; 82077; 82803; 83735; 84100; 84443; 84484; 85025; 87077; 87086; 87088; 87186; 87631; 93005; 94640; 94668; 96374; 97162; 97166; 97530; 97802; 99285; P9612; A4216

== ENCOUNTER 2024-05-25 14:51 | Inpatient (IN) | payer MEDICARE, SELFPAY ==
[2024-05-25] VITALS (20 sets, daily range): BP systolic 76–132; BP diastolic 48–93; PULSE 41–84; RESP 8–28; TEMP 35.7–36.3; O2SAT 76–100; BMI 23.3; BMI 19.8
--- NOTE | 2024-05-25 14:59 | CT_ITS ---
PROCEDURE: BRAIN/HEAD WITHOUT CONTRAST REASON FOR EXAM: Altered mental status. TECHNIQUE: Noncontrasted head CT COMPARISON: Head CT of 03/11/2020 FINDINGS: Thick dependent fluid with numerous air bubbles within is seen of the right maxillary sinus. This is concerning for acute paranasal sinusitis the remaining paranasal sinuses appear clear, as do the mastoid air cells. No acute osseous change is seen. No intracranial hemorrhage, mass, or mass effect is noted. Ventricles appear symmetric and within the normal range. No extra-axial fluid collection is noted. No orbital pathology is seen. CT/Brain/Head without Contrast IMPRESSION: 1. Findings concerning for acute paranasal sinusitis of the right maxillary sin us. 2. No intracranial hemorrhage or other additional process is seen. One or more dose reduction techniques were used (e.g., Automated exposure contr ol, adjustment of the mA and/or kV according to patient size, use of iterative reconstruction technique). Reading Location: [id number]
--- NOTE | 2024-05-25 15:00 | EKG12_ITS ---
Test Reason : AMS Blood Pressure : */* mmHG Vent. Rate : 60 BPM Atrial Rate : 60 BPM P-R Int : 170 ms QRS Dur : 100 ms QT Int : 450 ms P-R-T Axes : 59 55 69 degrees QTcB Int : 450 ms Normal sinus rhythm Nonspecific ST abnormality Abnormal ECG Confirmed by ITZ HIRSCH, CHRISTIAN ([id number]), editorial cartoonist DAKOTAH DELVALLE ([id number]) on 05/26/2024 1:27:14 PM Referred By: David Blackwell Confirmed By: CHRISTIAN MOBLEY MD
--- NOTE | 2024-05-25 15:03 | EX.ED.DYSGE1 ---
HPI History of Present Illness Chief Complaint: Alt LOC Informant: EMS Limited: uncooperative and other (Nonverbal) Onset/Context/Timing Onset: Today Context: Gradual Onset Timing: Continuous Narrative Narrative: Patient presents with altered mental status that was noticed today. Patient was last seen acting normally at 10 AM today. Has been treated. He came home around 11 and found her with altered mental status. Patient is nonverbal and does not answer any questions. Patient was recently admitted to the hospital and was discharged yesterday following UTI and confusion. EMS reports that the patient was combative for them. [facility] Medical History Confusion Asthma exacerbation in COPD Respiratory syncytial virus (RSV) Microcytic anemia RSV infection PTSD (post-traumatic stress disorder) Hyperthyroidism GI bleed Former smoker CPAP (continuous positive airway pressure) dependence On home oxygen therapy Myocardial infarct Congestive heart failure (CHF) Migraines Fall Contusion of nose Periorbital contusion of right eye Contusion of multiple fingers Chronic hypoxic respiratory failure Contusion of scalp Pneumonia Acute and chronic respiratory failure with hypoxia Normocytic anemia Acute exacerbation of chronic obstructive pulmonary disease (COPD) Fibromyalgia Chronic respiratory failure with hypoxia RAUL (obstructive sleep apnea) Incisional hernia TIA (transient ischemic attack) Osteoporosis Osteoarthritis Thyroid disorder Diverticulitis History of heart attack Sleep apnea History of pneumonia COPD (chronic obstructive pulmonary disease) History of bronchitis Asthma HTN (hypertension) Depression Anxiety Nausea and vomiting GERD (gastroesophageal reflux disease) Heart disease spinal stimulator Spinal stenosis Chronic back pain Hypothyroidism Home Medications ?Medication ?Instructions ?Recorded ?Last Taken ?Type atorvastatin 80 mg tablet 80 mg PO QHS cholesterol 06/01/13 05/25/14 History 80 MG clopidogrel 75 mg tablet 75 mg PO DAILY anti platelet 06/01/13 11/18/23 History lorazepam 1 mg tablet (Ativan) 1 mg PO TID PRN Anxiety 11/17/18 Unknown History duloxetine 60 mg capsule,delayed 60 mg PO BID DEPRESSION 06/19/20 Unknown History release furosemide 40 mg tablet 40 mg PO DAILY water pill 08/23/22 Unknown History liothyronine 5 mcg tablet 10 mcg PO DAILY HYPOTHYROIDISM 08/23/22 Unknown History pantoprazole 40 mg tablet,delayed 40 mg PO BID ACID REFLEX 30 days 05/06/23 Unknown Rx release #60 tabs metoprolol tartrate 25 mg tablet 25 mg PO Q12H blood pressure 10/09/23 Unknown History acetaminophen 500 mg tablet 500 mg PO Q6H PRN pain 11/05/23 Unknown History tiotropium bromide 2.5 2 inh inhalation DAILY LUNGS #3 ea 02/02/24 Unknown Rx mcg/actuation mist for inhalation (Spiriva Respimat) buspirone 10 mg tablet 10 mg PO BID ANXIETY 02/09/24 Unknown History diclofenac sodium 75 mg 75 mg PO BID see phyisican 02/09/24 Unknown History tablet,delayed release sucralfate 100 mg/mL oral 10 ml PO ACHS FOR STOMACH 02/09/24 Unknown History suspension topiramate 50 mg tablet 50 mg PO QHS SLEEP 02/09/24 Unknown History montelukast 10 mg tablet 10 mg PO QPM allergies #90 tabs 02/15/24 Unknown Rx albuterol sulfate 90 mcg/actuation 2 puff inhalation Q4H PRN COPD 03/11/24 Unknown History aerosol inhaler amitriptyline 10 mg tablet 10 mg PO DAILY nerve pain 03/11/24 Unknown History ipratropium 0.5 mg-albuterol 3 mg 3 ml inhalation .Q4-6H PRN 03/11/24 Unknown History (2.5 mg base)/3 mL nebulization shortness of breath or wheezing soln levothyroxine 50 mcg tablet 50 mcg PO SUSA thyroid 03/11/24 Unknown History levothyroxine 75 mcg tablet 75 mcg PO MOTUWETHFR THYROID 03/11/24 Unknown History mometasone-formoterol HFA 200 2 puff inhalation BID COPD 04/26/24 Unknown History mcg-5 mcg/actuation aerosol inhaler (Dulera) mirtazapine 15 mg tablet 15 mg PO QHS sleep #30 tabs 05/17/24 Unknown Rx prednisone 20 mg tablet 40 mg (2 x 20 mg) PO DAILY 7 days 05/19/24 Unknown Rx #14 tabs cholecalciferol (vitamin D3) 1,250 1,250 mcg PO QWEEK 05/22/24 Unknown History mcg (50,000 unit) capsule linezolid 600 mg tablet 600 mg PO BID 7 days #14 tabs 05/24/24 Unknown Rx baclofen 10 mg tablet 10 mg PO BID 05/25/24 Unknown History midodrine 5 mg tablet 5 mg PO TID 05/25/24 Unknown History Allergy/AdvReac Type Severity Reaction Status Date / Time cefaclor (From Ceclor) Allergy Itching Verified 05/22/24 12:11 clarithromycin Allergy Hives Verified 05/22/24 12:11 doxycycline Allergy Itching Verified 05/22/24 12:11 Penicillins Allergy Hives Verified 05/22/24 12:11 Sulfa (Sulfonamide Allergy Hives Verified 05/22/24 12:11 Antibiotics) biotin AdvReac Unknown Unknown Verified 05/22/24 12:11 [email or web address] (From Ambien) AdvReac Unknown mental Verified 05/22/24 12:11 issues Family History Father Asthma Heart disease Grandmother Breast cancer Diabetes Mother Heart disease COPD (chronic obstructive pulmonary disease) Other Cancer Surgical History Hx of BKA History of appendectomy History of incisional hernia repair History of incisional hernia repair (~12/20/18) Hx of cholecystectomy History of esophagogastroduodenoscopy (EGD) (~07/2018) Previous back surgery S/P hysterectomy S/P carpal tunnel release S/P knee surgery S/P correction of deviated nasal septum Status post thyroidectomy H/O heart artery stent Status post amputation of right foot Social History household members: spouse housing: house Smoking Status: Current every day smoker tobacco type: cigarettes Tobacco: How many years used: 25 second hand exposure: Yes alcohol intake: never substance use type: does not use caffeine: Yes what type of physical activity do you participate in: none frequency: does not exercise ROS ROS ED Review of Systems ROS Unobtainable: due to encephalopathy and due to mental status EXAM Physical Exam Const Vital Signs: 05/25/24 14:52 05/25/24 15:08 05/25/24 15:15 Temperature 97.2 F L 97.2 F L Temperature Source Temporal Temporal Pulse Rate 59 L 60 Respiratory Rate 8 L 14 Blood Pressure 120/74 101/64 Blood Pressure Mean 89 76 Pulse Ox 88 88 Oxygen Delivery Method Nasal Cannula Nasal Cannula Room Air Oxygen Flow Rate (L/min) 2 6 6 05/25/24 16:00 05/25/24 17:00 Temperature 97.3 F L 96.7 F L Temperature Source Core Core Pulse Rate 57 L 58 L Respiratory Rate 13 10 L Blood Pressure 112/67 81/49 L Blood Pressure Mean 82 61 Pulse Ox 99 100 Oxygen Delivery Method Nasal Cannula Room Air Oxygen Flow Rate (L/min) 3 HEENT Reports dry mucous membranes Mouth ED: Yes dry mucous membranes Mouth: dry mucous membranes Neck no JVD Resp normal respiratory effort and clear to auscultation bilaterally Cardio regular rate and regular rhythm GI non-distended Palpation: soft Extremity General Extremety ED: Negative for edema General Extremity: Negative for edema Neuro Sensorium / Orientation: lethargic Motor Exam: general weakness Sepsis Attestation Sepsis Alert: Yes Sepsis Attestation: Agree w/Sepsis Date exam was performed: 05/25/24 Time exam was performed: 15:00 Possible Source of Sepsis: Unknown Sepsis Organ Dysfunction Criteria Present: SBP < 90 mmHg or MAP < 65 mmHg and New/Unexplained change in mental status Fluid Resuscitation Fluid resuscitation indicated?: Yes Fluid Resuscitation ordered: 30 ml/kg fluid bolus ordered Amount of fluid ordered: 2,000 MDM MDM MDM Narrative Medical decision making narrative: Differential diagnosis includes urinary tract infection, sepsis, stroke, intracranial bleeding, hepatic encephalopathy, electrolyte abnormality, cardiac dysrhythmia, cardiac ischemia, and pneumonia. CT scan of the brain will be obtained to assess for intracranial bleeding and stroke. Chest x-ray will be obtained to assess for pneumonia and pneumothorax. EKG will be obtained to assess for cardiac dysrhythmia and cardiac ischemia. CBC will be obtained to assess for leukocytosis and anemia. Comprehensive metabolic profile will be obtained to assess for hepatic function, renal function, and electrolyte abnormality. PT with INR and PTT will be obtained to assess for coagulopathy. Serum lactate will be obtained to assess for sepsis. Ammonia level will be obtained to assess for hepatic encephalopathy. Urinalysis will be obtained to assess for urinary tract infection and hematuria. Lab Data Attestation: I reviewed the patient's lab results. Lab results narrative: CBC was reviewed. There is a mild anemia with a hemoglobin of 10.2 and hematocrit 32.8. Platelets were slightly elevated at 552. Comprehensive metabolic profile was reviewed and was within normal limits. PT with INR and PTT were reviewed and were within normal limits. Serum ammonia level was reviewed and was less than 10.0. BGT was reviewed and was 78. Urinalysis was reviewed. There is no evidence of urinary tract infection or hematuria. Labs: Laboratory Results - last 24 hr 05/25/24 05/25/24 05/25/24 15:02 15:38 15:45 WBC 7.0 RBC 3.84 L Hgb 10.2 L Hct 32.8 L MCV 85.4 MCH 26.6 L MCHC 31.1 L RDW Std Deviation 71.3 H RDW Coeff of [place] 23.2 H Plt Count 552 H MPV 9.1 Immature Gran % (Auto) 0.700 Neut % (Auto) 50.4 Lymph % (Auto) 37.8 [place] % (Auto) 7.0 Eos % (Auto) 3.4 Baso % (Auto) 0.7 Absolute Neuts (auto) 3.5 Absolute Lymphs (auto) 2.65 Nucleated RBC % 0 Differential Comment SCANNED Platelet Estimate ADEQUATE Hypochromasia 2+ Anisocytosis 2+ PT 13.2 INR 1.0 APTT 26.9 Sodium 138 Potassium 3.4 L Chloride 103 Carbon Dioxide 28.0 Anion Gap 7 BUN 11 Creatinine 0.89 Est GFR (MDRD) Af Amer 81 Est GFR (MDRD) Non-Af 67 BUN/Creatinine Ratio 12.3 Glucose 77 Lactic Acid 1.4 Calcium 8.6 Total Bilirubin 0.20 AST 17 ALT 17 Alkaline Phosphatase 70 Ammonia < 10.0 L Troponin I High Sens 17 Total Protein 6.5 Albumin 2.9 L Globulin 3.6 Albumin/Globulin Ratio 0.8 L Urine Color Urine Clarity Urine pH Ur Specific [place] Urine Protein Urine Glucose (UA) Urine Ketones Urine Occult Blood Urine Nitrite Urine Bilirubin Urine Urobilinogen Ur Leukocyte Esterase Urine RBC Urine WBC Ur Squamous Epith Cells Urine Bacteria Urine Mucus POC Glucose 78 05/25/24 16:00 WBC RBC Hgb Hct MCV MCH MCHC RDW Std Deviation RDW Coeff of [place] Plt Count MPV Immature Gran % (Auto) Neut % (Auto) Lymph % (Auto) [place] % (Auto) Eos % (Auto) Baso % (Auto) Absolute Neuts (auto) Absolute Lymphs (auto) Nucleated RBC % Differential Comment Platelet Estimate Hypochromasia Anisocytosis PT INR APTT Sodium Potassium Chloride Carbon Dioxide Anion Gap BUN Creatinine Est GFR (MDRD) Af Amer Est GFR (MDRD) Non-Af BUN/Creatinine Ratio Glucose Lactic Acid Calcium Total Bilirubin AST ALT Alkaline Phosphatase Ammonia Troponin I High Sens Total Protein Albumin Globulin Albumin/Globulin Ratio Urine Color Yellow Urine Clarity Clear Urine pH 6.5 Ur Specific [place] 1.010 Urine Protein Negative Urine Glucose (UA) Normal Urine Ketones Negative Urine Occult Blood Negative Urine Nitrite Negative Urine Bilirubin Negative Urine Urobilinogen Normal Ur Leukocyte Esterase Negative Urine RBC 0 SEEN Urine WBC 0 SEEN Ur Squamous Epith Cells 0 SEEN Urine Bacteria 0 SEEN Urine Mucus 0 SEEN POC Glucose ABG Data Attestation: I personally reviewed and interpreted this ABG as follows: Interpretation: ABG was reviewed. pH was 7.36. pCO2 was 47.3. pO2 was 184. Oxygen saturation was 100%. Bicarb was 27. ABG results: ABG 05/25/24 15:21 Specimen Type ART Sample Site R Radial pH 7.36 Bicarbonate Actual 27.0 H Total CO2 28 Base Excess 2 O2 Saturation 100 H O2 % 44.0 ABG pCO2 47.3 H ABG pO2 184 H Luke Test Positive O2 Delivery Device Cannula Vent Mode Not entered Radiography Diagnostic Testing: Clinical Impression(s) from Imaging Studies Brain CT 05/25/24 14:59 IMPRESSION: 1. Findings concerning for acute paranasal sinusitis of the right maxillary sinus. 2. No intracranial hemorrhage or other additional process is seen. One or more dose reduction techniques were used (e.g., Automated exposure control, adjustment of the mA and/or kV according to patient size, use of iterative reconstruction technique). Reading Location: [address] Chest X-Ray 05/25/24 15:35 IMPRESSION: Prior thoracolumbar surgery is again partially visualized. Areas scarring and/or pleural thickening of the lower lung zones are again seen. No evidence of pulmonary edema. No new or worsened pneumonic process is noted. No significant pleural effusion is appreciated. No pneumothorax is noted. The cardiomediastinal silhouette is stable, without evidence of cardiomegaly. Reading Location: [address] scan of the brain was obtained. There is no acute intracranial abnormality. There is right maxillary sinusitis. This was interpreted by the radiologist and was also independently reviewed by myself. Portable 1 view chest x-ray was obtained. On my independent interpretation, lung prasad showed scarring and pleural thickening of the lower lung prasad. There is normal cardiac silhouette. Bony thorax is normal. There is no acute process noted. Radiologist also interpreted the x-ray and agrees. EKG Initial EKG: Attestation: I personally reviewed and interpreted this EKG as follows: Interpretation: Sinus Rhythm (60) and Non-Specific ST Changes Comments: EKG was obtained. On my independent interpretation, it showed a normal sinus rhythm with a rate of 60. OK interval, QRS interval, and QTc intervals were all normal. [place] was normal. There are nonspecific ST-T wave changes. Prior EKG tracings: available for review Prior: Unchanged (05/22/2024) Management Discussion w/another healthcare provider: Hospitalist Treatment and Re-Evaluation :: Patient was given a dose of dextrose for the BGT of 78. This did not change her mental status. Patient's blood pressure dropped. Patient was given a second liter of normal saline. This completed her 30 cc/kg bolus. Patient was started on meropenem and vancomycin. Case was discussed with the hospitalist. He will admit the patient to PCU. Family understood and was agreeable with the plan. All questions were answered. Discharge Plan Triage Chief Complaint: Alt LOC ED Provider: Néstor Kirkpatrick Dx/Rx/DC Orders Clinical Impression: Altered mental status, Dehydration, Bradycardia Prescriptions: No Action lorazepam [Ativan] 1 mg tablet 1 mg PO TID PRN (Reason: Anxiety) acetaminophen 500 mg tablet 500 mg PO Q6H PRN (Reason: pain) clopidogrel 75 MG tablet 75 mg PO DAILY atorvastatin 80 MG tablet 80 mg PO QHS metoprolol tartrate 25 mg tablet 25 mg PO Q12H duloxetine 60 MG capsule 60 mg PO BID furosemide 40 mg Tablet 40 mg PO DAILY Rx Instructions: take with 20mg tablet for a total of 60mg daily liothyronine 5 mcg tablet 10 mcg PO DAILY pantoprazole 40 mg Tablet,Delayed Release (Dr/Ec) 40 mg PO BID 30 Days Qty: 60 0RF buspirone 10 mg tablet 10 mg PO BID sucralfate 100 mg/mL suspension 10 ml PO ACHS diclofenac sodium 75 mg tablet,delayed release (DR/EC) 75 mg PO BID topiramate 50 mg tablet 50 mg PO QHS prednisone 20 mg tablet 40 mg PO DAILY 7 Days Qty: 14 0RF cholecalciferol (vitamin D3) 1,250 mcg (50,000 unit) capsule 1,250 mcg PO QWEEK linezolid 600 mg Tablet 600 mg PO BID 7 Days Qty: 14 0RF midodrine 5 mg tablet 5 mg PO TID baclofen 10 mg tablet 10 mg PO BID levothyroxine 50 mcg tablet 50 mcg PO SUSA amitriptyline 10 mg tablet 10 mg PO DAILY ipratropium-albuterol 0.5 mg-3 mg(2.5 mg base)/3 mL solution for nebulization 3 ml inhalation .Q4-6H PRN (Reason: shortness of breath or wheezing) levothyroxine 75 mcg tablet 75 mcg PO MOTUWETHFR albuterol sulfate 90 mcg/actuation HFA aerosol inhaler 2 puff INHALATION Q4H PRN (Reason: COPD) Dulera 200-5 mcg/actuation HFA aerosol inhaler 2 puff inhalation BID Spiriva Respimat 2.5 mcg/actuation mist 2 inh INHALATION DAILY Qty: 3 3RF montelukast 10 mg tablet 10 mg PO QPM Qty: 90 3RF mirtazapine 15 mg tablet 15 mg PO QHS Qty: 30 0RF Primary Care Provider: Chrystal Michel Referrals: Chrystal Michel DO [Primary Care Provider] - Print Language: Divehi Disposition Disposition: Acute Care Hospital [facility]
[2024-05-25 15:17] LABS: Absolute Lymphocyte Count 2.65 X10^3/uL (0.83-4.51); Absolute Neutrophil Count 3.5 X10^3/uL (2.0-7.7); Basophil# 0.05 X10^3/uL; Basophil% 0.7 % (0-1); Eosinophil# 0.24 X10^3/uL; Eosinophils% 3.4 % (0-5); Hematocrit 32.8 % (37-47); Hemoglobin 10.2 g/dL (12.0-15.0); Lymphocyte # 2.65 X10^3/ul (0.83-4.51); Lymphocyte % 37.8 % (19-41); Mean Corp Hgb Conc 31.1 g/dL (32-36); Mean Corpuscular Hgb 26.6 pg (27.0-32.0); Mean Corpuscular Volume 85.4 fL (81-99); Mean Platelet Vol. 9.1 fl (6.2-12.0); Monocyte# 0.49 X10^3/uL; NRBC Flagged by Analyzer 0 % (0-5); Neutrophil # 3.53 X10^3/uL (2.7-7.7); Neutrophil % 50.4 % (47-70); POSITIVE MORPHOLOGY YES; Platelet Count 552 K/mm3 (150-450); RBC Distribution Width CV 23.2 % (11.6-14.6); RBC Distribution Width SD 71.3 fl (35.1-43.9); Red Blood Count 3.84 M/mm3 (4.2-5.4)
[2024-05-25 15:25] LABS: Allen Test Positive; Base Excess 2 mmol/L (-2 to +2); Blood Gas Specimen Type ART; Mode Not entered; O2 Delivery Device Cannula; PO2 184 mmHG (75-100); SITE R Radial; SO2 100 % (95-99); Total Carbon Dioxide 28 mmol/L; pCO2 47.3 mmHg (35-45); pH 7.36 (7.35-7.45)
[2024-05-25 15:34] LABS: Prothrombin Time (Protime)PT. 13.2 SECONDS (11.7-14.9)
[2024-05-25 15:35] LABS: Partial Thromboplast Time 26.9 Seconds (24.1-36.2)
--- NOTE | 2024-05-25 15:35 | RAD_ITS ---
PROCEDURE: CHEST 1 VIEW (PORTABLE) REASON FOR EXAM: Altered mental status. TECHNIQUE: AP portable semi-erect chest. COMPARISON: Chest x-ray 03/30/2024 RAD/Chest 1 View (Portable) IMPRESSION: Prior thoracolumbar surgery is again partially visualized. Areas scarring and/or pleural thickening of the lower lung zones are again seen . No evidence of pulmonary edema. No new or worsened pneumonic process is noted. No significant pleural effusion is appreciated. No pneumothorax is noted. The cardiomediastinal silhouette is stable, without evidence of cardiomegaly. Reading Location: [id number]
[2024-05-25 15:38] LABS: ALB/GLOB Ratio 0.8 RATIO (0.9-2.4); AST(SGOT) 17 U/L (15-37); Alanine Aminotransfer ALT/SGPT 17 U/L (13-56); Albumin, Serum 2.9 g/dL (3.2-5.0); Alkaline Phosphatase 70 U/L (45-117); Anion Gap 7 (5-15); BUN 11 mg/dL (7-18); BUN/Creat Ratio 12.3 RATIO (10-20); Calcium,Total 8.6 mg/dL (8.5-10.1); Chloride 103 mmol/L (98-107); Creatinine, Serum 0.89 mg/dL (0.55-1.02); EST Glomerular Filtration Rate 67 mL/min (>60); Est Glom Filt Rate - Afr Amer 81 mL/min (>60); Globulin 3.6 g/dL (2.2-4.2); Glucose 77 mg/dL (74-106); Potassium 3.4 mmol/L (3.5-5.1); Protein, Total 6.5 g/dL (6.4-8.2); Sodium Level 138 mmol/L (136-145); Troponin-I HS (w/2H Reflex) 17 pg/mL (3.0-54.0)
[2024-05-25] MEDS: 0.9% Normal Saline (1000mL) 1,000 ML 1000 ML IV ×2 (15:45→17:24)
[2024-05-25 15:47] LABS: Lactic Acid 1.4 mmol/L (0.4-1.9)
[2024-05-25 15:53] LABS: Differential Comment SCANNED; Differential Indicated SCAN CRITERIA MET; Platelet Estimate ADEQUATE (ADEQ)
[2024-05-25 15:54] LABS: Anisocytosis 2+; Hypochromasia 2+
[2024-05-25 15:56] LABS: Bedside Glucose 78 mg/dL (74-106)
[2024-05-25] MEDS: Dextrose 10%-Water 250 ML 999 ML IV (16:08)
[2024-05-25 16:14] LABS: Bacteria 0 SEEN /hpf (None Seen); Mucous, Urine 0 SEEN /hpf (<or=2+); Red Blood Cells-Urine 0 SEEN /hpf (0-5); Squamous Epithelial Cells - UA 0 SEEN /hpf (5-10); White Blood Cells 0 SEEN /hpf (0-5)
[2024-05-25 16:19] LABS: Color, Urine Yellow (Yellow); Glucose, Dipstick Normal (Normal); Ketone-Dipstick Negative (Negative); Leukocyte Esterase-Dipstick Negative /ul (Negative); Nitrite-Dipstick Negative (Negative); Occult Blood-Urine Negative /ul (Negative); Protein-Dipstick Negative (Negative); Urine Bilirubin Dipstick Negative (Negative); Urine Clarity Clear (Clear); Urine Urobilinogen Normal (Normal); Urine pH 6.5 (5.0 - 8.0)
[2024-05-25 16:25] LABS: Ammonia < 10.0 umol/L (11-32)
[2024-05-25 17:10] LABS: Reflex Troponin-HS? (from REC) Y
[2024-05-25 18:11] LABS: Troponin-I HS 18 pg/mL (3.0-54.0)
--- NOTE | 2024-05-25 18:13 | PCM.HP.STD ---
HPI - General General Date of Admission: 05/25/24 Date of Service: 05/25/24 Chief Complaint: Altered mental status HPI Narrative TAJ BLANK, is a 68 F who presented to [facility] ED on 05/25/2024 with altered mental status. Patient was hospitalized here from 05/22-05/24 for a similar presentation. She also had a prolonged hospitalization earlier this month. Was suspected her altered mentation was multifactorial from UTI and polypharmacy. She improved back to baseline by 05/24 and was able to be discharged home. Has been noticed that patient was alert and oriented at home earlier this morning and up cleaning the house. He went to the store around 10 AM and when he came back at 11 AM patient was altered and not responsive, so he brought her in for further evaluation. In the ED patient had sinus bradycardia in the 50s and intermittent low blood pressure readings in the 70s to 80s systolic. Was otherwise breathing comfortably on home 3 L nasal cannula. She had dilated pupils noted and was not responding to any commands. She was protecting her airway without issue. CBC and BMP were unremarkable. Ammonia level less than 10. UA was essentially clean and much improved from previous. CT brain was unremarkable. Chest x-ray was unremarkable. Urine drug screen was negative. Given patient's altered mentation with unclear etiology, hospitalist was contacted for admission. I saw the patient at bedside in the ED, was present. Patient was laying back in bed and was moving spontaneously but not responding to any commands. She did have dilated pupils noted. noted that he was not aware of patient taking any new medications today. Will be admitted for further management. [facility] Medical History Confusion Asthma exacerbation in COPD Respiratory syncytial virus (RSV) Microcytic anemia RSV infection PTSD (post-traumatic stress disorder) Hyperthyroidism GI bleed Former smoker CPAP (continuous positive airway pressure) dependence On home oxygen therapy Myocardial infarct Congestive heart failure (CHF) Migraines Fall Contusion of nose Periorbital contusion of right eye Contusion of multiple fingers Chronic hypoxic respiratory failure Contusion of scalp Pneumonia Acute and chronic respiratory failure with hypoxia Normocytic anemia Acute exacerbation of chronic obstructive pulmonary disease (COPD) Fibromyalgia Chronic respiratory failure with hypoxia RAUL (obstructive sleep apnea) Incisional hernia TIA (transient ischemic attack) Osteoporosis Osteoarthritis Thyroid disorder Diverticulitis History of heart attack Sleep apnea History of pneumonia COPD (chronic obstructive pulmonary disease) History of bronchitis Asthma HTN (hypertension) Depression Anxiety Nausea and vomiting GERD (gastroesophageal reflux disease) Heart disease spinal stimulator Spinal stenosis Chronic back pain Hypothyroidism Home Medications ?Medication ?Instructions ?Recorded ?Last Taken ?Type atorvastatin 80 mg tablet 80 mg PO QHS cholesterol 06/01/13 05/25/14 History 80 MG clopidogrel 75 mg tablet 75 mg PO DAILY anti platelet 06/01/13 11/18/23 History lorazepam 1 mg tablet (Ativan) 1 mg PO TID PRN Anxiety 11/17/18 Unknown History duloxetine 60 mg capsule,delayed 60 mg PO BID DEPRESSION 06/19/20 Unknown History release furosemide 40 mg tablet 40 mg PO DAILY water pill 08/23/22 Unknown History liothyronine 5 mcg tablet 10 mcg PO DAILY HYPOTHYROIDISM 08/23/22 Unknown History pantoprazole 40 mg tablet,delayed 40 mg PO BID ACID REFLEX 30 days 05/06/23 Unknown Rx release #60 tabs metoprolol tartrate 25 mg tablet 25 mg PO Q12H blood pressure 10/09/23 Unknown History acetaminophen 500 mg tablet 500 mg PO Q6H PRN pain 11/05/23 Unknown History tiotropium bromide 2.5 2 inh inhalation DAILY LUNGS #3 ea 02/02/24 Unknown Rx mcg/actuation mist for inhalation (Spiriva Respimat) buspirone 10 mg tablet 10 mg PO BID ANXIETY 02/09/24 Unknown History diclofenac sodium 75 mg 75 mg PO BID see phyisican 02/09/24 Unknown History tablet,delayed release sucralfate 100 mg/mL oral 10 ml PO ACHS FOR STOMACH 02/09/24 Unknown History suspension topiramate 50 mg tablet 50 mg PO QHS SLEEP 02/09/24 Unknown History montelukast 10 mg tablet 10 mg PO QPM allergies #90 tabs 02/15/24 Unknown Rx albuterol sulfate 90 mcg/actuation 2 puff inhalation Q4H PRN COPD 03/11/24 Unknown History aerosol inhaler amitriptyline 10 mg tablet 10 mg PO DAILY nerve pain 03/11/24 Unknown History ipratropium 0.5 mg-albuterol 3 mg 3 ml inhalation .Q4-6H PRN 03/11/24 Unknown History (2.5 mg base)/3 mL nebulization shortness of breath or wheezing soln levothyroxine 50 mcg tablet 50 mcg PO SUSA thyroid 03/11/24 Unknown History levothyroxine 75 mcg tablet 75 mcg PO MOTUWETHFR THYROID 03/11/24 Unknown History mometasone-formoterol HFA 200 2 puff inhalation BID COPD 04/26/24 Unknown History mcg-5 mcg/actuation aerosol inhaler (Dulera) mirtazapine 15 mg tablet 15 mg PO QHS sleep #30 tabs 05/17/24 Unknown Rx prednisone 20 mg tablet 40 mg (2 x 20 mg) PO DAILY 7 days 05/19/24 Unknown Rx #14 tabs cholecalciferol (vitamin D3) 1,250 1,250 mcg PO QWEEK 05/22/24 Unknown History mcg (50,000 unit) capsule linezolid 600 mg tablet 600 mg PO BID 7 days #14 tabs 05/24/24 Unknown Rx baclofen 10 mg tablet 10 mg PO BID 05/25/24 Unknown History midodrine 5 mg tablet 5 mg PO TID 05/25/24 Unknown History Allergy/AdvReac Type Severity Reaction Status Date / Time cefaclor (From Ceclor) Allergy Itching Verified 05/22/24 12:11 clarithromycin Allergy Hives Verified 05/22/24 12:11 doxycycline Allergy Itching Verified 05/22/24 12:11 Penicillins Allergy Hives Verified 05/22/24 12:11 Sulfa (Sulfonamide Allergy Hives Verified 05/22/24 12:11 Antibiotics) biotin AdvReac Unknown Unknown Verified 05/22/24 12:11 [email or web address] (From Ambien) AdvReac Unknown mental Verified 05/22/24 12:11 issues Family History Father Asthma Heart disease Grandmother Breast cancer Diabetes Mother Heart disease COPD (chronic obstructive pulmonary disease) Other Cancer Surgical History Hx of BKA History of appendectomy History of incisional hernia repair History of incisional hernia repair (~12/20/18) Hx of cholecystectomy History of esophagogastroduodenoscopy (EGD) (~07/2018) Previous back surgery S/P hysterectomy S/P carpal tunnel release S/P knee surgery S/P correction of deviated nasal septum Status post thyroidectomy H/O heart artery stent Status post amputation of right foot Social History household members: spouse housing: house Smoking Status: Current every day smoker tobacco type: cigarettes Tobacco: How many years used: 25 second hand exposure: Yes alcohol intake: never substance use type: does not use caffeine: Yes what type of physical activity do you participate in: none frequency: does not exercise ROS Review of Systems ROS Unobtainable: due to encephalopathy Vital Signs Vital Signs Vital Signs: 05/25/24 14:52 05/25/24 15:08 05/25/24 15:15 Temperature 97.2 F L 97.2 F L Temperature Source Temporal Temporal Pulse Rate 59 L 60 Respiratory Rate 8 L 14 Blood Pressure 120/74 101/64 Blood Pressure Mean 89 76 Pulse Ox 88 88 Oxygen Delivery Method Nasal Cannula Nasal Cannula Room Air Oxygen Flow Rate (L/min) 2 6 6 05/25/24 16:00 05/25/24 17:00 05/25/24 18:00 Temperature 97.3 F L 96.7 F L Temperature Source Core Core Pulse Rate 57 L 58 L 56 L Respiratory Rate 13 10 L 12 Blood Pressure 112/67 81/49 L 115/59 L Blood Pressure Mean 82 61 76 Pulse Ox 99 100 93 Oxygen Delivery Method Nasal Cannula Room Air Nasal Cannula Oxygen Flow Rate (L/min) 3 3 Weight Weight: 52.5 kg Body Mass Index (BMI) 23.3 Physical Exam Const Constitutional Narrative: Upper middle-age female, appears older than stated age, thin and chronically ill-appearing, laying back in bed, spontaneous movements noted but patient not following any commands. Orientation / Consciousness: confused and disoriented HEENT normocephalic and head/scalp atraumatic HEENT Narrative: Dry mucous membranes. Eyes PERRL and conjunctivae normal Eyes Narrative: Dilated pupils noted. Neck supple Resp normal respiratory effort and no use of accessory muscles Resp Narrative: Breathing comfortably on home 3 L nasal cannula with good breath sounds bilaterally. Cardio regular rate, regular rhythm and no murmurs GI normal to inspection, nondistended, normoactive bowel sounds, soft to palpation, non-tender and non-distended Extremity normal to inspection Results Lab / Micro Data 05/25/24 15:02 05/25/24 15:02 Labs: Laboratory Results - last 24 hr 05/25/24 15:02: WBC 7.0, RBC 3.84 L, Hgb 10.2 L, Hct 32.8 L, MCV 85.4, MCH 26.6 L, MCHC 31.1 L, RDW Std Deviation 71.3 H, RDW Coeff of [place] 23.2 H, Plt Count 552 H, MPV 9.1, Immature Gran % (Auto) 0.700, Neut % (Auto) 50.4, Lymph % (Auto) 37.8, [place] % (Auto) 7.0, Eos % (Auto) 3.4, Baso % (Auto) 0.7, Absolute Neuts (auto) 3.5, Absolute Lymphs (auto) 2.65, Nucleated RBC % 0, Differential Comment SCANNED, Platelet Estimate ADEQUATE, Hypochromasia 2+, Anisocytosis 2+, PT 13.2, INR 1.0, APTT 26.9, Sodium 138, Potassium 3.4 L, Chloride 103, Carbon Dioxide 28.0, Anion Gap 7, BUN 11, Creatinine 0.89, Est GFR (MDRD) Af Amer 81, Est GFR (MDRD) Non-Af 67, BUN/Creatinine Ratio 12.3, Glucose 77, Lactic Acid 1.4, Calcium 8.6, Total Bilirubin 0.20, AST 17, ALT 17, Alkaline Phosphatase 70, Troponin I High Sens 17, Total Protein 6.5, Albumin 2.9 L, Globulin 3.6, Albumin/Globulin Ratio 0.8 L 05/25/24 15:38: POC Glucose 78 05/25/24 15:45: Ammonia < 10.0 L 05/25/24 16:00: Urine Color Yellow, Urine Clarity Clear, Urine pH 6.5, Ur Specific [place] 1.010, Urine Protein Negative, Urine Glucose (UA) Normal, Urine Ketones Negative, Urine Occult Blood Negative, Urine Nitrite Negative, Urine Bilirubin Negative, Urine Urobilinogen Normal, Ur Leukocyte Esterase Negative, Urine RBC 0 SEEN, Urine WBC 0 SEEN, Ur Squamous Epith Cells 0 SEEN, Urine Bacteria 0 SEEN, Urine Mucus 0 SEEN 05/25/24 17:30: Troponin I High Sens 18 ABG Data ABG results: ABG 05/25/24 15:21 Specimen Type ART Sample Site R Radial pH 7.36 Bicarbonate Actual 27.0 H Total CO2 28 Base Excess 2 O2 Saturation 100 H O2 % 44.0 ABG pCO2 47.3 H ABG pO2 184 H Luke Test Positive O2 Delivery Device Cannula Vent Mode Not entered Imaging Radiology Impression Brain CT 05/25/24 14:59 IMPRESSION: 1. Findings concerning for acute paranasal sinusitis of the right maxillary sinus. 2. No intracranial hemorrhage or other additional process is seen. One or more dose reduction techniques were used (e.g., Automated exposure control, adjustment of the mA and/or kV according to patient size, use of iterative reconstruction technique). Reading Location: [id number] Chest X-Ray 05/25/24 15:35 IMPRESSION: Prior thoracolumbar surgery is again partially visualized. Areas scarring and/or pleural thickening of the lower lung zones are again seen. No evidence of pulmonary edema. No new or worsened pneumonic process is noted. No significant pleural effusion is appreciated. No pneumothorax is noted. The cardiomediastinal silhouette is stable, without evidence of cardiomegaly. Reading Location: [id number] Assessment & Plan Assessment/Plan (1) Altered mental status: PLAN: Plan Patient is a 68-year-old female who presented [facility] ED on 05/25/2024 with altered mental status. 1. Acute encephalopathy, unclear toxic versus metabolic ? Admit under inpatient status to the ICU. Ear Nose Throat Physician consulted. Unclear etiology for encephalopathy at this time. UDS negative. Given dose of Narcan in the ED with no response. Does have dilated pupils noted on exam and movements that appear somewhat seizure like, cannot rule out seizures. Spot EEG ordered. Could be related to polypharmacy and linezolid for UTI. Monitor closely. 2. Concern for hypotension ? Noted to have blood pressure readings in the 60s to 70s systolic in the ED. However, had readings shortly after these in the 120s to 130s systolic so unclear if patient is having true low pressure readings. Will continue to monitor closely. 3. Recent Enterobacter UTI ? Recent urine culture from 05/22 grew 80-100K Enterococcus. Was treated with antibiotics while inpatient and discharged on p.o. linezolid. Repeat UA on 05/25 essentially clean. Patient noninfectious appearing with normal lactate and no WBC count elevation. Will hold on further antibiotics for now. 4. Chronic respiratory failure ? On home 3 L nasal cannula, stable on home oxygen. Monitor. 5. Depression/anxiety, chronic pain syndrome ? Patient has extensive home medication list and there was concern for polypharmacy during her previous hospitalization. There has been some difficulty and verifying patient's home medications. Patient altered and unable to take p.o. medications currently. Will order mirtazapine, duloxetine, BuSpar and Ativan as needed as was done during prior admission. Chronic medical conditions: ? Hypothyroidism: Continue home Synthroid and liothyronine. ? Hypertension, hyperlipidemia, history of TIA: Continue home statin and Plavix. ? History of erosive esophagitis/GERD: Continue home PPI. ? Chronic anemia: Hemoglobin 10.2 on admit, stable at baseline. DVT prophylaxis: Lovenox CODE STATUS: Full code, unverified Expected disposition: TBD Total clinical time spent by myself addressing the patient's medical issues, reviewing all the data, and collaborating with patient's care team: 75 minutes. Charges/Coding Visit Charges Inpatient E&M: 14688 Init Hosp L3
[2024-05-25] MEDS: Meropenem 1 GM in 0.9% Normal Saline (100mL MB+) 100 ML IV (18:20)
[2024-05-25] MEDS: Vancomycin HCl 1,250 MG in 0.9% Normal Saline (250mL Bag) 250 ML 167 MG IV (18:20)
[2024-05-25] MEDS: Naloxone 2 MG/2 ML Syringe 1 MG IV (18:35)
[2024-05-25 19:18] LABS: Amphetamine Urine NEGATIVE (<1000 ng/mL); Barbiturate Urine VISTA NEGATIVE (< 200 ng/mL); Benzodiazepine Urine VISTA NEGATIVE (< 200 ng/mL); Cocaine Urine VISTA NEGATIVE (< 300 ng/mL); Ecstacy Urine VISTA NEGATIVE (< 500 ng/mL); Methadone Urine VISTA NEGATIVE (< 300 ng/mL); PCP Urine VISTA NEGATIVE (< 25 ng/mL); THC Urine VISTA NEGATIVE (< 50 ng/mL); Vista UDS pH Range 6
[2024-05-25] MEDS: 0.9% Normal Saline (1000mL) 1,000 ML 999 ML IV (19:57)
[2024-05-25 21:19] LABS: Bedside Glucose 70 mg/dL (74-106)
[2024-05-25 22:11] LABS: Lactic Acid 1.2 mmol/L (0.4-1.9)
[2024-05-25 23:07] LABS: Base Excess -4 mmol/L (-2 to +2); Bicarbonate 23.7 mmol/L (22-26); Blood Gas Specimen Type ART; Mode Not entered; O2 Delivery Device BiPAP; PEEP 10; PO2 105 mmHG (75-100); RR 14; SITE L Radial; SO2 97 % (95-99); Total Carbon Dioxide 25 mmol/L; pCO2 54.6 mmHg (35-45); pH 7.25 (7.35-7.45)
[2024-05-26] VITALS (40 sets, daily range): BP systolic 75–149; BP diastolic 48–89; PULSE 46–97; RESP 14–27; TEMP 36.1–36.8; O2SAT 83–100; BMI 19.9
[2024-05-26 01:38] LABS: Base Excess -1 mmol/L (-2 to +2); Bicarbonate 25.9 mmol/L (22-26); Blood Gas Specimen Type ART; Mode Not entered; O2 Delivery Device BiPAP; PEEP 10; PO2 203 mmHG (75-100); RR 16; SITE L Radial; SO2 100 % (95-99); Total Carbon Dioxide 28 mmol/L; pCO2 54.7 mmHg (35-45); pH 7.28 (7.35-7.45)
[2024-05-26] MEDS: 0.9% Saline Lock 10 ML Syringe IV (02:15)
[2024-05-26 02:22] LABS: Hematocrit 29.9 % (37-47); Hemoglobin 9.1 g/dL (12.0-15.0); Mean Corp Hgb Conc 30.4 g/dL (32-36); Mean Corpuscular Hgb 26.6 pg (27.0-32.0); Mean Corpuscular Volume 87.4 fL (81-99); Mean Platelet Vol. 9.1 fl (6.2-12.0); POSITIVE MORPHOLOGY YES; Platelet Count 523 K/mm3 (150-450); RBC Distribution Width CV 23.4 % (11.6-14.6); RBC Distribution Width SD 73.8 fl (35.1-43.9); Red Blood Count 3.42 M/mm3 (4.2-5.4); White Blood Count 9.7 K/mm3 (4.4-11.0)
[2024-05-26 02:25] LABS: Scan Indicated on CBC? Y/N YES- FLAGS NOTED
[2024-05-26 02:51] LABS: Anion Gap 4 (5-15); BUN 8 mg/dL (7-18); BUN/Creat Ratio 14.6 RATIO (10-20); Calcium,Total 7.3 mg/dL (8.5-10.1); Chloride 116 mmol/L (98-107); Creatinine, Serum 0.55 mg/dL (0.55-1.02); EST Glomerular Filtration Rate 117 mL/min (>60); Est Glom Filt Rate - Afr Amer 141 mL/min (>60); Estimated Creatinine Clearance 54.29 ml/min; Glucose 90 mg/dL (74-106); Sodium Level 147 mmol/L (136-145)
[2024-05-26 03:11] LABS: Magnesium 1.6 mg/dL (1.6-2.6); Phosphorus 2.6 mg/dL (2.5-4.9)
[2024-05-26 03:13] LABS: Differential Comment SCANNED
[2024-05-26] MEDS: Norepinephrine 8 MG in 0.9% Normal Saline (250mL Bag) 242 ML 9.4 MG CONT INF (03:24)
[2024-05-26] MEDS: Potassium Chloride 10mEq/100mL 10 MEQ/100 ML IV.SOLN. 100 MEQ IV BOLUS ×4 (03:28→06:52)
[2024-05-26] MEDS: Magnesium Sulfate 2 GM in Dextrose 5%-Water (100mL Bag) 100 ML IV (03:29)
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
[2024-05-26] MEDS: Ipratropium/Albuterol Sulfate 3 ML AMPUL.NEB INHALATION ×2 (07:42→13:29)
[2024-05-26] MEDS: Budesonide Respules 0.5 MG/2 ML AMPUL.NEB. INHALATION (07:42)
[2024-05-26 08:48] LABS: Allen Test Positive; Base Excess -2 mmol/L (-2 to +2); Blood Gas Specimen Type ART; Mode AVAPS; O2 Delivery Device Not entered; PEEP 10; PO2 83 mmHG (75-100); SITE L Radial; SO2 95 % (95-99); Total Carbon Dioxide 25 mmol/L; pCO2 44.9 mmHg (35-45); pH 7.34 (7.35-7.45)
--- NOTE | 2024-05-26 09:47 | CPS ---
Pt kept desating, this RT tried increasing pt to 6L NC. Pt was still sat of 80%. This RT tried a venti mask at 50% and 12L but pt still had a sat in the 80s. This RT placed pt back on BIPAP
--- NOTE | 2024-05-26 10:05 | EX.PCM.CONCC ---
Assessment & Plan Assessment/Plan (1) Altered mental status: PLAN: Plan RECOMMENDATIONS: 1. Continue to wean FiO2 to maintain saturations at or above 90%. 2. Neurology is following to assist with medical management. 3. Check TSH and free T4. 4. Obtain CTA chest. 5. Maintain n.p.o. status, pending improvement in mental status. 6. Resume baclofen, if possible, per recommendations. 7. Lovenox for DVT prophylaxis. IMPRESSIONS: 1. Altered mental status Unclear etiology. The patient has a history of polypharmacy and frequent urinary tract infections. However, no discernible source of infection has yet to be identified. Toxicology screen was negative. CT head was unremarkable. Ammonia level was normal. Given her history of hypothyroidism, will check TSH and free T4. The patient was evaluated by neurology with clinical concern for oculogyric crisis with differential including withdrawal from anticholinergics or baclofen. It was recommended that her baclofen be restarted and IV Benadryl be administered. Will continue to monitor the patient clinically. 2. Acute on chronic hypoxemic respiratory failure Unclear precipitating etiology. Initial chest imaging was largely unremarkable. In light of her ongoing hypoxemia, will obtain CTA chest. In the interim, continue scheduled bronchodilators. Wean supplemental oxygen to maintain saturations at or above 90%. The patient is currently followed in the pulmonary medicine clinic due to a history of stage II Gold COPD, right middle lobe pulmonary nodule, obstructive sleep apnea and chronic hypoxemic respiratory failure, with a baseline oxygen requirement of 4 L/min. 3. History of obstructive sleep apnea/hypothyroidism/hypertension/hyperlipidemia/depression/anxiety/anemia Complicates care, management, recovery and prognosis. Continue supportive measures as noted above. This note was generated with [employer] dictation software. It may contain incorrect words, spelling, and punctuation that were not noted in checking the note before signing. HPI Consult Data Date of Consult: 05/26/24 HPI Narrative Reason for Consultation: Altered mental status HPI Narrative: The patient is a 68-year-old female, with a history as outlined below, who presented to the emergency department on May 25 with altered mental status. The patient had just been discharged from the hospital on May 24 after having been admitted with confusion, paranoia and UTI. The patient's urine culture was positive for Enterococcus faecalis on May 22. The patient has a documented medical history of COPD, chronic hypoxemic respiratory failure, hypothyroidism, obstructive sleep apnea, depression and anxiety. On presentation to the emergency department, the patient was documented to be afebrile and hemodynamically stable. During her emergency department stay, however, the patient did have several low blood pressure readings. Laboratory evaluation revealed a normal white blood cell count with a hemoglobin of 10.2 g/dL and platelet count of 552,000. Coagulation profile was unremarkable. Initial arterial blood gas demonstrated a pH of 7.36 with a pCO2 of 47 and pO2 of 184. Chemistry profile was notable for a potassium of 3.4. Creatinine was within normal limits. Lactate was normal. Ammonia was unremarkable. Urine analysis was unremarkable. Toxicology screen was negative. Head CT revealed no intracranial hemorrhage. Chest x-ray demonstrated no acute cardiopulmonary process. It does appear that the patient was administered IV fluids and antimicrobials in the emergency department. Overnight, the patient was briefly on Levophed and was maintained on BiPAP therapy. Repeat blood gas this morning demonstrated a pH of 7.34 with a pCO2 of 45 and pO2 of 83. She is currently documented to be overall net +2.3 L for the hospitalization. Repeat blood and urine cultures are currently pending. However, the patient was not maintained on antimicrobials following ED admission. [facility] Medical History Confusion Asthma exacerbation in COPD Respiratory syncytial virus (RSV) Microcytic anemia RSV infection PTSD (post-traumatic stress disorder) Hyperthyroidism GI bleed Former smoker CPAP (continuous positive airway pressure) dependence On home oxygen therapy Myocardial infarct Congestive heart failure (CHF) Migraines Fall Contusion of nose Periorbital contusion of right eye Contusion of multiple fingers Chronic hypoxic respiratory failure Contusion of scalp Pneumonia Acute and chronic respiratory failure with hypoxia Normocytic anemia Acute exacerbation of chronic obstructive pulmonary disease (COPD) Fibromyalgia Chronic respiratory failure with hypoxia RAUL (obstructive sleep apnea) Incisional hernia TIA (transient ischemic attack) Osteoporosis Osteoarthritis Thyroid disorder Diverticulitis History of heart attack Sleep apnea History of pneumonia COPD (chronic obstructive pulmonary disease) History of bronchitis Asthma HTN (hypertension) Depression Anxiety Nausea and vomiting GERD (gastroesophageal reflux disease) Heart disease spinal stimulator Spinal stenosis Chronic back pain Hypothyroidism Home Medications ?Medication ?Instructions ?Recorded ?Last Taken ?Type atorvastatin 80 mg tablet 80 mg PO QHS cholesterol 06/01/13 05/25/14 History 80 MG clopidogrel 75 mg tablet 75 mg PO DAILY anti platelet 06/01/13 11/18/23 History lorazepam 1 mg tablet (Ativan) 1 mg PO TID PRN Anxiety 11/17/18 Unknown History duloxetine 60 mg capsule,delayed 60 mg PO BID DEPRESSION 06/19/20 Unknown History release Held on 05/24/24. Instructions: Resume on 06/06/24. furosemide 40 mg tablet 40 mg PO DAILY water pill 08/23/22 Unknown History liothyronine 5 mcg tablet 10 mcg PO DAILY HYPOTHYROIDISM 08/23/22 Unknown History pantoprazole 40 mg tablet,delayed 40 mg PO BID ACID REFLEX 30 days 05/06/23 Unknown Rx release #60 tabs metoprolol tartrate 25 mg tablet 25 mg PO Q12H blood pressure 10/09/23 Unknown History acetaminophen 500 mg tablet 500 mg PO Q6H PRN pain 11/05/23 Unknown History tiotropium bromide 2.5 2 inh inhalation DAILY LUNGS #3 ea 02/02/24 Unknown Rx mcg/actuation mist for inhalation (Spiriva Respimat) buspirone 10 mg tablet 10 mg PO BID ANXIETY 02/09/24 Unknown History Held on 05/24/24. Instructions: Resume on 06/06/24. diclofenac sodium 75 mg 75 mg PO BID see phyisican 02/09/24 Unknown History tablet,delayed release sucralfate 100 mg/mL oral 10 ml PO ACHS FOR STOMACH 02/09/24 Unknown History suspension topiramate 50 mg tablet 50 mg PO QHS SLEEP 02/09/24 Unknown History montelukast 10 mg tablet 10 mg PO QPM allergies #90 tabs 02/15/24 Unknown Rx albuterol sulfate 90 mcg/actuation 2 puff inhalation Q4H PRN COPD 03/11/24 Unknown History aerosol inhaler amitriptyline 10 mg tablet 10 mg PO DAILY nerve pain 03/11/24 Unknown History ipratropium 0.5 mg-albuterol 3 mg 3 ml inhalation .Q4-6H PRN 03/11/24 Unknown History (2.5 mg base)/3 mL nebulization shortness of breath or wheezing soln levothyroxine 50 mcg tablet 50 mcg PO SUSA thyroid 03/11/24 Unknown History levothyroxine 75 mcg tablet 75 mcg PO MOTUWETHFR THYROID 03/11/24 Unknown History mometasone-formoterol HFA 200 2 puff inhalation BID COPD 12/31/24 Unknown History mcg-5 mcg/actuation aerosol inhaler (Dulera) mirtazapine 15 mg tablet 15 mg PO QHS sleep #30 tabs 05/17/24 Unknown Rx prednisone 20 mg tablet 40 mg (2 x 20 mg) PO DAILY 7 days 05/19/24 Unknown Rx #14 tabs cholecalciferol (vitamin D3) 1,250 1,250 mcg PO QWEEK 05/22/24 Unknown History mcg (50,000 unit) capsule linezolid 600 mg tablet 600 mg PO BID 7 days #14 tabs 05/24/24 Unknown Rx baclofen 10 mg tablet 10 mg PO BID 05/25/24 Unknown History midodrine 5 mg tablet 5 mg PO TID 05/25/24 Unknown History Allergy/AdvReac Type Severity Reaction Status Date / Time cefaclor (From Ceclor) Allergy Itching Verified 05/22/24 12:11 clarithromycin Allergy Hives Verified 05/22/24 12:11 doxycycline Allergy Itching Verified 05/22/24 12:11 Penicillins Allergy Hives Verified 05/22/24 12:11 Sulfa (Sulfonamide Allergy Hives Verified 05/22/24 12:11 Antibiotics) biotin AdvReac Unknown Unknown Verified 05/22/24 12:11 zolpidem (From Ambien) AdvReac Unknown mental Verified 05/22/24 12:11 issues Family History Father Asthma Heart disease Grandmother Breast cancer Diabetes Mother Heart disease COPD (chronic obstructive pulmonary disease) Other Cancer Surgical History Hx of BKA History of appendectomy History of incisional hernia repair History of incisional hernia repair (~12/20/18) Hx of cholecystectomy History of esophagogastroduodenoscopy (EGD) (~07/2018) Previous back surgery S/P hysterectomy S/P carpal tunnel release S/P knee surgery S/P correction of deviated nasal septum Status post thyroidectomy H/O heart artery stent Status post amputation of right foot Social History household members: spouse housing: house Smoking Status: Current every day smoker tobacco type: cigarettes Tobacco: How many years used: 25 second hand exposure: Yes alcohol intake: never substance use type: does not use caffeine: Yes what type of physical activity do you participate in: none frequency: does not exercise ROS Review of Systems ROS Unobtainable: due to mental status Physical Exam Const Constitutional Narrative: The patient is alert but is restless and not currently interacting appropriately. HEENT normocephalic and head/scalp atraumatic Teeth and Gingiva: poor dentition Eyes Pupil: dilated Positive for bilateral Neck supple General: trachea midline Chest inspection of chest normal Resp normal respiratory effort Auscultation: Negative for rales, rhonchi or wheezes Cardio regular rate and regular rhythm GI normal to inspection, nondistended, normoactive bowel sounds Extremity General Extremity: amputation; Negative for clubbing or edema Skin no rashes or lesions noted Neuro CN's II-XII intact bilaterally and moves all extremities Psych Activity / Motor Behavior: restless Lab / Micro Data 05/26/24 02:15 05/26/24 02:15 Labs: Laboratory Results - last 24 hr 05/25/24 15:02: WBC 7.0, RBC 3.84 L, Hgb 10.2 L, Hct 32.8 L, MCV 85.4, MCH 26.6 L, MCHC 31.1 L, RDW Std Deviation 71.3 H, RDW Coeff of Genaro 23.2 H, Plt Count 552 H, MPV 9.1, Immature Gran % (Auto) 0.700, Neut % (Auto) 50.4, Lymph % (Auto) 37.8, [place] % (Auto) 7.0, Eos % (Auto) 3.4, Baso % (Auto) 0.7, Absolute Neuts (auto) 3.5, Absolute Lymphs (auto) 2.65, Nucleated RBC % 0, Differential Comment SCANNED, Platelet Estimate ADEQUATE, Hypochromasia 2+, Anisocytosis 2+, PT 13.2, INR 1.0, APTT 26.9, Sodium 138, Potassium 3.4 L, Chloride 103, Carbon Dioxide 28.0, Anion Gap 7, BUN 11, Creatinine 0.89, Est GFR (MDRD) Af Amer 81, Est GFR (MDRD) Non-Af 67, BUN/Creatinine Ratio 12.3, Glucose 77, Lactic Acid 1.4, Calcium 8.6, Total Bilirubin 0.20, AST 17, ALT 17, Alkaline Phosphatase 70, Troponin I High Sens 17, Total Protein 6.5, Albumin 2.9 L, Globulin 3.6, Albumin/Globulin Ratio 0.8 L 05/25/24 15:38: POC Glucose 78 05/25/24 15:45: Ammonia < 10.0 L 05/25/24 16:00: Urine Color Yellow, Urine Clarity Clear, Urine pH 6.5, Ur Specific [place] 1.010, Urine Protein Negative, Urine Glucose (UA) Normal, Urine Ketones Negative, Urine Occult Blood Negative, Urine Nitrite Negative, Urine Bilirubin Negative, Urine Urobilinogen Normal, Ur Leukocyte Esterase Negative, Urine RBC 0 SEEN, Urine WBC 0 SEEN, Ur Squamous Epith Cells 0 SEEN, Urine Bacteria 0 SEEN, Urine Mucus 0 SEEN, Urine Opiates Screen NEGATIVE, Urine Methadone Screen NEGATIVE, Ur Barbiturates Screen NEGATIVE, Ur Phencyclidine Scrn NEGATIVE, Ur Amphetamines Screen NEGATIVE, MDMA (Ecstasy) Screen NEGATIVE, U Benzodiazepines Scrn NEGATIVE, Urine Cocaine Screen NEGATIVE, U Cannabinoids Screen NEGATIVE, Ur Drug Screen Comment 05/25/24 17:30: Troponin I High Sens 18 05/25/24 21:00: POC Glucose 70 L 05/25/24 21:30: Lactic Acid 1.2 05/26/24 02:15: WBC 9.7, RBC 3.42 L, Hgb 9.1 L, Hct 29.9 L, MCV 87.4, MCH 26.6 L, MCHC 30.4 L, RDW Std Deviation 73.8 H, RDW Coeff of Genaro 23.4 H, Plt Count 523 H, MPV 9.1, Differential Comment SCANNED, Sodium 147 H, Potassium 3.0 L, Chloride 116 H, Carbon Dioxide 27.0, Anion Gap 4 L, BUN 8, Creatinine 0.55, Estim Creat Clear Calc 54.29, Est GFR (MDRD) Af Amer 141, Est GFR (MDRD) Non-Af 117, BUN/Creatinine Ratio 14.6, Glucose 90, Calcium 7.3 L, Phosphorus 2.6, Magnesium 1.6 Micro: Microbiology 05/25/24 16:00 Urine, Catheterized Urine Culture - Preliminary Culture exhibits no growth. ABG Data ABG results: ABG 05/25/24 05/25/24 05/26/24 15:21 23:02 01:33 Specimen Type ART ART ART Sample Site R Radial L Radial L Radial pH 7.36 7.25 L 7.28 L Bicarbonate Actual 27.0 H 23.7 25.9 Total CO2 28 25 28 Base Excess 2 -4 L -1 O2 Saturation 100 H 97 100 H O2 % 44.0 75.0 75.0 ABG pCO2 47.3 H 54.6 H 54.7 H ABG pO2 184 H 105 H 203 H Luke Test Positive N/A N/A Respiration Rate 14 16 O2 Delivery Device Cannula BiPAP BiPAP Vent Mode Not entered Not entered Not entered Tidal Volume 450.0 450.0 POC PEEP 10 10 05/26/24 08:45 Specimen Type ART Sample Site L Radial pH 7.34 L Bicarbonate Actual 24.0 Total CO2 25 Base Excess -2 O2 Saturation 95 O2 % 40.0 ABG pCO2 44.9 ABG pO2 83 Luke Test Positive Respiration Rate O2 Delivery Device Not entered Vent Mode AVAPS Tidal Volume 450.0 POC PEEP 10 Imaging Radiology Impression Brain CT 05/25/24 14:59 IMPRESSION: 1. Findings concerning for acute paranasal sinusitis of the right maxillary sinus. 2. No intracranial hemorrhage or other additional process is seen. One or more dose reduction techniques were used (e.g., Automated exposure control, adjustment of the mA and/or kV according to patient size, use of iterative reconstruction technique). Reading Location: [address] Chest X-Ray 05/25/24 15:35 IMPRESSION: Prior thoracolumbar surgery is again partially visualized. Areas scarring and/or pleural thickening of the lower lung zones are again seen. No evidence of pulmonary edema. No new or worsened pneumonic process is noted. No significant pleural effusion is appreciated. No pneumothorax is noted. The cardiomediastinal silhouette is stable, without evidence of cardiomegaly. Reading Location: [address] Charges/Coding Visit Charges Inpatient E&M: 79097 Init Hosp L3
--- NOTE | 2024-05-26 10:15 | CT_ITS ---
PROCEDURE: CTA CHEST W/WO CONTRAST REASON FOR EXAM: Confusion. CHF. COPD. TECHNIQUE: CTA imaging of the chest with intravenous contrast. 3D reconstructions. CONTRAST: COMPARISON: Comparison is made with prior CT scan dated April 27, 2024. FINDINGS: Hardware: None. Lymph nodes: Mild enlargement of the right hilar lymph nodes. Heart: Normal heart size. No pericardial effusion. RV/LV Diameter Ratio: N/A Thoracic Aorta: Atherosclerotic calcification. Pulmonary Vessels: No evidence of acute pulmonary emboli through the major subsegmental branches. Most Proximal Level of Embolus (if embolus present): N/A Lungs and Airways: Increased markings with areas of confluence at the lower bases suggestive of infiltration superimposed on scarring. There is evidence of a 2 cm by 2.2 cm bulla in the left lower lobe. There is volume loss in the right middle lobe. COPD. Pleura: Minimal bilateral pleural effusions. Upper Abdomen: Visualized portions of the upper abdominal viscera are unremarkable. Bones: Prior fusion in the mid dorsal vertebrae with degenerative changes. Stable loss of height of a mid and lower dorsal vertebrae. CT/CTA Chest W/WO Contrast IMPRESSION: No evidence of pulmonary embolism. Bibasilar atelectasis and infiltrates as well as volume loss in the right middl e lobe suggestive of a chronic bronchiectasis. Emphysematous changes. Stable postsurgical changes in the lower dorsal upper lumbar spine with loss of height of vertebrae. One or more dose reduction techniques were used (e.g., Automated exposure contr ol, adjustment of the mA and/or kV according to patient size, use of iterative reconstruction technique). Reading Location: [place] [id number]
[2024-05-26] MEDS: Enoxaparin 40 MG/0.4 ML Syringe SC (10:19)
--- NOTE | 2024-05-26 11:05 | CON.PCM.NE_ITS ---
Assessment and Plan: Neuro Assessment/Plan TAJ BLANK is a 68 F with a past medical history of polypharmacy, frequent UTI infections, being evaluated by Teleneurology for AMS and atypical eye movements and dilated pupils. She has never had eyes movements like this before per her nurse who has seen her frequently before. She recently was stopped on a lot of medications for fear of polypharmacy. On exam there is concern for occulogyric crisis which can manifest with dilated pupils as well. Her pupils on exam are slightly dilated but mostly reactive. 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 - recommend resuming baclofen at home dosage - provide patient with 1mg benztropine or 25mg IV benadryl. If she has improvement in agitation and eye movements, recommend providing 0.5mg benztropine BID for several days before weaning off. No infectious etiology found yet. I personally attended this patient and spent a total time of 45minutes evaluating this patient including clinical assessment, review of chart, medical history imaging, and determining appropriate treatment and workup. HPI Consult Data Date of Consult: 05/26/24 HPI Narrative HPI Narrative: TAJ BLANK, is a 68 F who presented to [facility] ED on 05/25/2024 with altered mental status. Patient was hospitalized here from 05/22- 05/24 for a similar presentation. She also had a prolonged hospitalization earlier this month. Was suspected her altered mentation was multifactorial from UTI and polypharmacy. She improved back to baseline by 05/24 and was able to be discharged home. Has been noticed that patient was alert and oriented at home earlier this morning and up cleaning the house. He went to the store around 10 AM and when he came back at 11 AM patient was altered and not responsive, so he brought her in for further evaluation. In the ED patient had sinus bradycardia in the 50s and intermittent low blood pressure readings in the 70s to 80s systolic. Was otherwise breathing comfortably on home 3 L nasal cannula. She had dilated pupils noted and was not responding to any commands. She was protecting her airway without issue. CBC and BMP were unremarkable. Ammonia level less than 10. UA was essentially clean and much improved from previous. CT brain was unremarkable. Chest x-ray was unremarkable. Urine drug screen was negative. Given patient's altered mentation with unclear etiology, hospitalist was contacted for admission. During her prior hospitalization she had some encephalopathy as a result of acute cystitis from enterococcus and polypharmacy (was on lorazepam, amitriptyline, baclofen, BuSpar, cyclobenzaprine, duloxetine, hydroxyzine, mirtazapine, Topamax as well as cough syrup. Codeine UDS did reveal positive opiates. Medications adjusted with continuation of mirtazapine duloxetine and BuSpar and Ativan as needed to prevent withdrawal Overnight, the patient was briefly on Levophed and was maintained on BiPAP therapy. Repeat blood gas this morning demonstrated a pH of 7.34 with a pCO2 of 45 and pO2 of 83. She is currently documented to be overall net +2.3 L for the hospitalization. Repeat blood and urine cultures are currently pending. However, the patient was not maintained on antimicrobials following ED admission. Neurologic History: Patient was doing fine after last discharge. Per she was perfect returned to baseline of talking and walking appropriately. No confusion. Does not have baseline memory problems. She was hhome for 12 hrs and went to the store and found her on the sofa very confused with severely dilated pupils. She was brought to the ED. Of noted on prior admission she was stopped on her amitriptyline, baclofen, cyclobenzaprine, hydroxizine, and topamax. does not know if she could have taken some of her meds at home but does not think so. He states he does not know what all she takes but she fills her medication box up every week and manages on her own. Per him, she has been on baclofen for years. [facility] Medical History Confusion Asthma exacerbation in COPD Respiratory syncytial virus (RSV) Microcytic anemia RSV infection PTSD (post-traumatic stress disorder) Hyperthyroidism GI bleed Former smoker CPAP (continuous positive airway pressure) dependence On home oxygen therapy Myocardial infarct Congestive heart failure (CHF) Migraines Fall Contusion of nose Periorbital contusion of right eye Contusion of multiple fingers Chronic hypoxic respiratory failure Contusion of scalp Pneumonia Acute and chronic respiratory failure with hypoxia Normocytic anemia Acute exacerbation of chronic obstructive pulmonary disease (COPD) Fibromyalgia Chronic respiratory failure with hypoxia RAUL (obstructive sleep apnea) Incisional hernia TIA (transient ischemic attack) Osteoporosis Osteoarthritis Thyroid disorder Diverticulitis History of heart attack Sleep apnea History of pneumonia COPD (chronic obstructive pulmonary disease) History of bronchitis Asthma HTN (hypertension) Depression Anxiety Nausea and vomiting GERD (gastroesophageal reflux disease) Heart disease spinal stimulator Spinal stenosis Chronic back pain Hypothyroidism Home Medications ?Medication ?Instructions ?Recorded ?Last Taken ?Type atorvastatin 80 mg tablet 80 mg PO QHS cholesterol 09/0705/25/14 History 80 MG clopidogrel 75 mg tablet 75 mg PO DAILY anti platelet 06/01/13 11/18/23 History lorazepam 1 mg tablet (Ativan) 1 mg PO TID PRN Anxiety 11/17/18 Unknown History duloxetine 60 mg capsule,delayed 60 mg PO BID DEPRESSI ON 06/19/20 Unknown History release Held on 05/24/24. Instructions: Resume on 06/06/24. furosemide 40 mg tablet 40 mg PO DAILY water pill Unknown History liothyronine 5 mcg tablet 10 mcg PO DAILY HYPOTHYROIDI SM 08/23/22 Unknown History pantoprazole 40 mg tablet,delayed 40 mg PO BID ACID RE FLEX 30 days 05/06/23 Unknown Rx release #60 tabs metoprolol tartrate 25 mg tablet 25 mg PO Q12H blood p ressure 10/09/23 Unknown History acetaminophen 500 mg tablet 500 mg PO Q6H PRN pain 03/20 Unknown History tiotropium bromide 2.5 2 inh inhalation DAILY LUNGS #3 ea 02/02/24 Unknown Rx mcg/actuation mist for inhalation (Spiriva Respimat) buspirone 10 mg tablet 10 mg PO BID ANXIETY 4 Unknown History Held on 05/24/24. Instructions: Resume on 06/06/24. diclofenac sodium 75 mg 75 mg PO BID see phyisican 1 Unknown History tablet,delayed release sucralfate 100 mg/mL oral 10 ml PO ACHS FOR STOMACH Unknown History suspension topiramate 50 mg tablet 50 mg PO QHS SLEEP 02/09/24 Unknown History montelukast 10 mg tablet 10 mg PO QPM allergies #90 t abs 02/15/24 Unknown Rx albuterol sulfate 90 mcg/actuation 2 puff inhalation Q 4H PRN COPD 03/11/24 Unknown History aerosol inhaler amitriptyline 10 mg tablet 10 mg PO DAILY nerve pain 1 05/11/23 Unknown History ipratropium 0.5 mg-albuterol 3 mg 3 ml inhalation .Q4- 6H PRN 03/11/24 Unknown History (2.5 mg base)/3 mL nebulization shortness of breath or wheezing soln levothyroxine 50 mcg tablet 50 mcg PO SUSA thyroid Unknown History levothyroxine 75 mcg tablet 75 mcg PO MOTUWETHFR THYRO ID 03/11/24 Unknown History mometasone-formoterol HFA 200 2 puff inhalation BID CO PD 04/26/24 Unknown History mcg-5 mcg/actuation aerosol inhaler (Dulera) mirtazapine 15 mg tablet 15 mg PO QHS sleep #30 tabs 05/17/24 Unknown Rx prednisone 20 mg tablet 40 mg (2 x 20 mg) PO DAILY 7 days 05/19/24 Unknown Rx #14 tabs cholecalciferol (vitamin D3) 1,250 1,250 mcg PO QWEEK 05/22/24 Unknown History mcg (50,000 unit) capsule linezolid 600 mg tablet 600 mg PO BID 7 days #14 tab s 05/24/24 Unknown Rx baclofen 10 mg tablet 10 mg PO BID 05/25/24 Unknow n History midodrine 5 mg tablet 5 mg PO TID 05/25/24 Unknown History Allergy/AdvReac Type Severity Reaction Status Date / Time [facility] ([facility] Allergy Itching Verified 05/22/24 12:11 clarithromycin Allergy Hives Verified 05/22/24 12:11 doxycycline Allergy Itching Verified 05/22/24 12:11 Penicillins Allergy Hives Verified 05/22/24 12:11 Sulfa (Sulfonamide Allergy Hives Verified 05/22/24 12:11 Antibiotics) biotin AdvReac Unknown Unknown Verified 05/22/24 12:11 zolpidem (From Ambien) AdvReac Unknown mental Verified 05/22/24 12:11 issues Family History Father Asthma Heart disease Grandmother Breast cancer Diabetes Mother Heart disease COPD (chronic obstructive pulmonary disease) Other Cancer Surgical History Hx of BKA History of appendectomy History of incisional hernia repair History of incisional hernia repair (~12/20/18) Hx of cholecystectomy History of esophagogastroduodenoscopy (EGD) (~07/2018) Previous back surgery S/P hysterectomy S/P carpal tunnel release S/P knee surgery S/P correction of deviated nasal septum Status post thyroidectomy H/O heart artery stent Status post amputation of right foot Social History household members: spouse housing: house Smoking Status: Current every day smoker tobacco type: cigarettes Tobacco: How many years used: 25 second hand exposure: Yes alcohol intake: never substance use type: does not use caffeine: Yes what type of physical activity do you participate in: none frequency: does not exercise Vital Signs Vital Signs Vital Signs: 05/25/24 14:52 05/25/24 15:08 05/25/24 15:15 Temperature 97.2 F L 97.2 F L Temperature Source Temporal Temporal Pulse Rate 59 L 60 Pulse Strength Respiratory Rate 8 L 14 Respiratory Effort Respiratory Depth Respiratory Pattern Blood Pressure 120/74 101/64 Blood Pressure Mean 89 76 Blood Pressure Source Blood Pressure Position Blood Pressure Location Pulse Ox 88 88 Oxygen Delivery Method Nasal Cannula Nasal Cannula Room Air Oxygen Flow Rate (L/min) 2 6 6 Fraction of Inspired Oxygen (FIO2) 05/25/24 16:00 05/25/24 17:00 05/25/24 18:00 Temperature 97.3 F L 96.7 F L Temperature Source Core Core Pulse Rate 57 L 58 L 56 L Pulse Strength Respiratory Rate 13 10 L 12 Respiratory Effort Respiratory Depth Respiratory Pattern Blood Pressure 112/67 81/49 L 115/59 L Blood Pressure Mean 82 61 76 Blood Pressure Source Blood Pressure Position Blood Pressure Location Pulse Ox 99 100 93 Oxygen Delivery Method Nasal Cannula Room Air Nasal Cannula Oxygen Flow Rate (L/min) 3 3 Fraction of Inspired Oxygen (FIO2) 05/25/24 18:28 05/25/24 19:00 05/25/24 19:53 Temperature 96.3 F L Temperature Source Pulse Rate 41 L 58 L 56 L Pulse Strength Respiratory Rate 13 11 L 15 Respiratory Effort Respiratory Depth Respiratory Pattern Blood Pressure 76/51 L 88/48 L 114/55 L Blood Pressure Mean 59 61 74 Blood Pressure Source Blood Pressure Position Blood Pressure Location Pulse Ox 98 97 Oxygen Delivery Method Nasal Cannula Oxygen Flow Rate (L/min) 3 Fraction of Inspired Oxygen (FIO2) 05/25/24 20:00 05/25/24 20:02 05/25/24 20:18 Temperature 96.9 F L Temperature Source Core Pulse Rate 56 L 56 L 47 L Pulse Strength Respiratory Rate 12 14 11 L Respiratory Effort Respiratory Depth Respiratory Pattern Blood Pressure 103/67 103/67 132/80 H Blood Pressure Mean 79 79 97 Blood Pressure Source Blood Pressure Position Blood Pressure Location Pulse Ox 100 95 Oxygen Delivery Method Nasal Cannula Nasal Cannula Oxygen Flow Rate (L/min) 3 3 Fraction of Inspired Oxygen (FIO2) 05/25/24 21:15 05/25/24 21:23 05/25/24 21:27 Temperature Temperature Source Pulse Rate 77 Pulse Strength Weak (1+) Respiratory Rate 19 H Respiratory Effort Normal Non-Labored Respiratory Depth Normal Respiratory Pattern Normal Blood Pressure 113/65 Blood Pressure Mean 81 Blood Pressure Source Monitor Blood Pressure Position Left Lateral Blood Pressure Location Right Arm Pulse Ox 95 Oxygen Delivery Method Nasal Cannula Nasal Cannula Oxygen Flow Rate (L/min) 4 4 Fraction of Inspired Oxygen (FIO2) 05/25/24 21:30 05/25/24 21:45 05/25/24 22:00 Temperature Temperature Source Pulse Rate 56 L 84 82 Pulse Strength Respiratory Rate 22 H 27 H 27 H Respiratory Effort Respiratory Depth Respiratory Pattern Blood Pressure 120/55 L 120/70 121/93 H Blood Pressure Mean 76 86 102 Blood Pressure Source Monitor Monitor Monitor Blood Pressure Position Left Lateral Left Lateral Left Lateral Blood Pressure Location Right Arm Right Arm Right Arm Pulse Ox 100 88 91 Oxygen Delivery Method Nasal Cannula Nasal Cannula Nasal Cannula Oxygen Flow Rate (L/min) 4 6 6 Fraction of Inspired Oxygen (FIO2) 05/25/24 22:07 05/25/24 22:26 05/25/24 22:30 Temperature Temperature Source Pulse Rate 67 Pulse Strength Respiratory Rate Respiratory Effort Respiratory Depth Respiratory Pattern Blood Pressure Blood Pressure Mean Blood Pressure Source Blood Pressure Position Blood Pressure Location Pulse Ox 77 76 Oxygen Delivery Method High Flow Non-Rebreather Oxygen Flow Rate (L/min) 15 Fraction of Inspired Oxygen (FIO2) 05/25/24 22:45 05/25/24 23:00 05/25/24 23:38 Temperature Temperature Source Pulse Rate 49 L 68 Pulse Strength Respiratory Rate 15 28 H Respiratory Effort Normal Non-Labored Respiratory Depth Normal Respiratory Pattern Normal Normal Blood Pressure 79/58 L Blood Pressure Mean 65 Blood Pressure Source Monitor Blood Pressure Position Left Lateral Blood Pressure Location Right Arm Pulse Ox 99 97 Oxygen Delivery Method Bi-pap Bi-pap Oxygen Flow Rate (L/min) Fraction of Inspired Oxygen (FIO2) 75 75 05/26/24 00:00 05/26/24 01:00 05/26/24 01:21 Temperature 97.1 F L Temperature Source Temporal Pulse Rate 70 67 64 Pulse Strength Respiratory Rate 27 H 24 H 19 H Respiratory Effort Respiratory Depth Respiratory Pattern Normal Blood Pressure 85/54 L 112/58 L Blood Pressure Mean 64 76 Blood Pressure Source Monitor Monitor Blood Pressure Position Left Lateral Left Lateral Blood Pressure Location Right Arm Right Arm Pulse Ox 90 100 99 Oxygen Delivery Method Bi-pap Bi-pap Oxygen Flow Rate (L/min) Fraction of Inspired Oxygen (FIO2) 75 75 75 05/26/24 01:39 05/26/24 02:00 05/26/24 03:00 Temperature Temperature Source Pulse Rate 66 67 Pulse Strength Respiratory Rate 27 H 14 Respiratory Effort Respiratory Depth Respiratory Pattern Blood Pressure 92/60 75/48 L Blood Pressure Mean 70 57 Blood Pressure Source Monitor Monitor Blood Pressure Position Left Lateral Left Lateral Blood Pressure Location Right Arm Right Arm Pulse Ox 100 100 97 Oxygen Delivery Method Bi-pap Bi-pap Oxygen Flow Rate (L/min) Fraction of Inspired Oxygen (FIO2) 50 50 40 05/26/24 03:00 05/26/24 03:21 05/26/24 03:24 Temperature Temperature Source Pulse Rate 67 69 Pulse Strength Respiratory Rate 21 H Respiratory Effort Respiratory Depth Respiratory Pattern Tachypnea Blood Pressure 84/51 L Blood Pressure Mean 62 Blood Pressure Source Monitor Blood Pressure Position Blood Pressure Location Pulse Ox 98 Oxygen Delivery Method Oxygen Flow Rate (L/min) Fraction of Inspired Oxygen (FIO2) 40 05/26/24 03:30 05/26/24 03:32 05/26/24 03:45 Temperature Temperature Source Pulse Rate Pulse Strength Respiratory Rate Respiratory Effort Normal Non-Labored Respiratory Depth Normal Respiratory Pattern Normal Blood Pressure 96/56 L 110/89 H Blood Pressure Mean 69 96 Blood Pressure Source Monitor Monitor Blood Pressure Position Blood Pressure Location Pulse Ox Oxygen Delivery Method Bi-pap Oxygen Flow Rate (L/min) Fraction of Inspired Oxygen (FIO2) 40 05/26/24 04:00 05/26/24 04:15 05/26/24 04:30 Temperature 97.0 F L Temperature Source Temporal Pulse Rate 46 L Pulse Strength Respiratory Rate 14 Respiratory Effort Respiratory Depth Respiratory Pattern Blood Pressure 102/63 115/52 L 131/63 H Blood Pressure Mean 76 73 85 Blood Pressure Source Monitor Monitor Monitor Blood Pressure Position Left Lateral Blood Pressure Location Right Arm Pulse Ox 100 Oxygen Delivery Method Bi-pap Oxygen Flow Rate (L/min) Fraction of Inspired Oxygen (FIO2) 40 05/26/24 05:00 05/26/24 06:00 05/26/24 07:00 Temperature Temperature Source Pulse Rate 72 56 L 68 Pulse Strength Respiratory Rate 18 15 21 H Respiratory Effort Respiratory Depth Respiratory Pattern Blood Pressure 149/84 H 123/57 H 122/84 H Blood Pressure Mean 105 79 96 Blood Pressure Source Monitor Monitor Monitor Blood Pressure Position Left Lateral Left Lateral Left Lateral Blood Pressure Location Right Arm Right Arm Right Arm Pulse Ox 97 94 97 Oxygen Delivery Method Bi-pap Bi-pap Bi-pap Oxygen Flow Rate (L/min) Fraction of Inspired Oxygen (FIO2) 40 40 40 05/26/24 07:46 05/26/24 07:46 05/26/24 08:00 Temperature Temperature Source Pulse Rate 89 87 Pulse Strength Respiratory Rate 20 H 25 H Respiratory Effort Respiratory Depth Respiratory Pattern Blood Pressure 131/72 H Blood Pressure Mean 91 Blood Pressure Source Monitor Blood Pressure Position Blood Pressure Location Pulse Ox 95 83 Oxygen Delivery Method Nasal Cannula Nasal Cannula Oxygen Flow Rate (L/min) 4 4 Fraction of Inspired Oxygen (FIO2) 05/26/24 08:13 05/26/24 08:15 05/26/24 08:30 Temperature Temperature Source Pulse Rate 79 Pulse Strength Respiratory Rate 18 Respiratory Effort Respiratory Depth Respiratory Pattern Blood Pressure 130/64 H 92/62 Blood Pressure Mean 86 72 Blood Pressure Source Monitor Monitor Blood Pressure Position Blood Pressure Location Pulse Ox 97 Oxygen Delivery Method Oxygen Flow Rate (L/min) Fraction of Inspired Oxygen (FIO2) 97 05/26/24 08:44 05/26/24 08:45 05/26/24 08:49 Temperature Temperature Source Pulse Rate Pulse Strength Weak (1+) Respiratory Rate Respiratory Effort Short of Breath Respiratory Depth Shallow Respiratory Pattern Tachypnea Blood Pressure 105/62 Blood Pressure Mean 76 Blood Pressure Source Monitor Blood Pressure Position Blood Pressure Location Pulse Ox Oxygen Delivery Method Bi-pap Oxygen Flow Rate (L/min) Fraction of Inspired Oxygen (FIO2) 40 05/26/24 09:00 05/26/24 09:00 Temperature 98.3 F Temperature Source Temporal Pulse Rate 77 Pulse Strength Respiratory Rate 21 H Respiratory Effort Respiratory Depth Respiratory Pattern Blood Pressure 100/58 L Blood Pressure Mean 72 Blood Pressure Source Monitor Blood Pressure Position Blood Pressure Location Pulse Ox 99 Oxygen Delivery Method Airvo Oxygen Flow Rate (L/min) Fraction of Inspired Oxygen (FIO2) 70 Weight Weight: 51.1 kg Body Mass Index (BMI) 19.9 EEG Results Procedure Details EEG Procedure Details: TAJ BLANK is a 68 year old F with a past medical history of , who presents for evaluation of Electroencephalogram on DATE at TIME Physical Exam Narrative Patient awake, follows simple commands the R pupil is 4mm and minimally reactive, L pupil is 5 mm and brisk Eyes open, there is vertical nystagmus noted There is dystonic torsion upward to the R No facial droop Moves arms antigravity Legs move in plane of the bed, withdrawal to noxiuos stim on the L, on the R she has an AKA which moves in plane of the bed Lab / Micro Data 05/26/24 02:15 05/26/24 02:15 Labs: Laboratory Results - last 24 hr 05/25/24 15:02: WBC 7.0, RBC 3.84 L, Hgb 10.2 L, Hct 32.8 L, MCV 85.4, MCH 26.6 L, MCHC 31.1 L, RDW Std Deviation 71.3 H, RDW Coeff of Genaro 23.2 H, Plt Count 552 H, MPV 9.1, Immature Gran % (Auto) 0.700, Neut % (Auto) 50.4, Lymph % (Auto) 37.8, Woods % (Auto) 7.0, Eos % (Auto) 3.4, Baso % (Auto) 0.7, Absolute Neuts (auto) 3.5, Absolute Lymphs (auto) 2.65, Nucleated RBC % 0, Differential Comment SCANNED, Platelet Estimate ADEQUATE, Hypochromasia 2+, Anisocytosis 2+, PT 13.2, INR 1.0, APTT 26.9, Sodium 138, Potassium 3.4 L, Chloride 103, Carbon Dioxide 28.0, Anion Gap 7, BUN 11, Creatinine 0.89, Est GFR (MDRD) Af Amer 81, Est GFR (MDRD) Non-Af 67, BUN/Creatinine Ratio 12.3, Glucose 77, Lactic Acid 1.4, Calcium 8.6, Total Bilirubin 0.20, AST 17, ALT 17, Alkaline Phosphatase 70, Troponin I High Sens 17, Total Protein 6.5, Albumin 2.9 L, Globulin 3.6, A lbumin/Globulin Ratio 0.8 L 05/25/24 15:38: POC Glucose 78 05/25/24 15:45: Ammonia < 10.0 L 05/25/24 16:00: Urine Color Yellow, Urine Clarity Clear, Urine pH 6.5, Ur Specific Burke 1.010, Urine Protein Negative, Urine Glucose (UA) Normal, Urine Ketones Negative, Urine Occult Blood Negative, Urine Nitrite Negative, Urine Bilirubin Negative, Urine Urobilinogen Normal, Ur Leukocyte Esterase Negative, Urine RBC 0 SEEN, Urine WBC 0 SEEN, Ur Squamous Epith Cells 0 SEEN, Urine Bacteria 0 SEEN, Urine Mucus 0 SEEN, Urine Opiates Screen NEGATIVE, Urine Methadone Screen NEGATIVE, Ur Barbiturates Screen NEGATIVE, Ur Phencyclidine Scrn NEGATIVE, Ur Amphetamines Screen NEGATIVE, MDMA (Ecstasy) Screen NEGATIVE, U Benzodiazepines Scrn NEGATIVE, Urine Cocaine Screen NEGATIVE, U Cannabinoids Screen NEGATIVE, Ur Drug Screen Comment 05/25/24 17:30: Troponin I High Sens 18 05/25/24 21:00: POC Glucose 70 L 05/25/24 21:30: Lactic Acid 1.2 05/26/24 02:15: WBC 9.7, RBC 3.42 L, Hgb 9.1 L, Hct 29.9 L, MCV 87.4, MCH 26.6 L , MCHC 30.4 L, RDW Std Deviation 73.8 H, RDW Coeff of Genaro 23.4 H, Plt Count 523 H, MPV 9.1, Differential Comment SCANNED, Sodium 147 H, Potassium 3.0 L, C hloride 116 H, Carbon Dioxide 27.0, Anion Gap 4 L, BUN 8, Creatinine 0.55, Estim Creat Clear Calc 54.29, Est GFR (MDRD) Af Amer 141, Est GFR (MDRD) Non-Af 117, BUN/Creatinine Ratio 14.6, Glucose 90, Calcium 7.3 L, Phosphorus 2.6, Magnesium 1.6, TSH 30.000 H, Free T4 0.50 L Micro: Microbiology 05/25/24 16:00 Urine, Catheterized Urine Culture - Preliminary Culture exhibits no growth. ABG Data ABG results: ABG 01/05/25/24 05/26/24 15:21 23:02 01:33 Specimen Type ART ART ART Sample Site R Radial L Radial L Radial pH 7.36 7.25 L 7.28 L Bicarbonate Actual 27.0 H 23.7 25.9 Total CO2 28 25 28 Base Excess 2 -4 L -1 O2 Saturation 100 H 97 100 H O2 % 44.0 75.0 75.0 ABG pCO2 47.3 H 54.6 H 54.7 H ABG pO2 184 H 105 H 203 H Luke Test Positive N/A N/A Respiration Rate 14 16 O2 Delivery Device Cannula BiPAP BiPAP Vent Mode Not entered Not entered Not entered Tidal Volume 450.0 450.0 POC PEEP 10 10 05/26/24 08:45 Specimen Type ART Sample Site L Radial pH 7.34 L Bicarbonate Actual 24.0 Total CO2 25 Base Excess -2 O2 Saturation 95 O2 % 40.0 ABG pCO2 44.9 ABG pO2 83 Luke Test Positive Respiration Rate O2 Delivery Device Not entered Vent Mode AVAPS Tidal Volume 450.0 POC PEEP 10 Imaging Radiology Impression Brain CT 05/25/24 14:59 IMPRESSION: 1. Findings concerning for acute paranasal sinusitis of the right maxillary sinus. 2. No intracranial hemorrhage or other additional process is seen. One or more dose reduction techniques were used (e.g., Automated exposure control, adjustment of the mA and/or kV according to patient size, use of iterative reconstruction technique). Reading Location: [address] Chest X-Ray 05/25/24 15:35 IMPRESSION: Prior thoracolumbar surgery is again partially visualized. Areas scarring and/or pleural thickening of the lower lung zones are again seen. No evidence of pulmonary edema. No new or worsened pneumonic process is noted. No significant pleural effusion is appreciated. No pneumothorax is noted. The cardiomediastinal silhouette is stable, without evidence of cardiomegaly. Reading Location: [address] Active Medications Active Medications Active Medications: Current Medications Generic Name Dose Route Start Last Admin Trade Name Freq PRN Reason Stop Dose Admin Acetaminophen 500 mg 05/25/24 21:20 Acetaminophen 500 Mg Tablet PO Q6H PRN PRN pain 1-10 Albuterol Sulfate 2.5 mg 05/25/24 21:20 Albuterol 2.5 Mg/3 Ml Vial.Neb. INHALATION Q4H PRN PRN COPD Albuterol/Ipratropium 3 ml 05/26/24 00:00 05/26/24 07:42 Ipratropium/Albuterol Sulfate 3 Ml Ampul.Neb INHALATION 3 ml Q6HWA.RT JESSICA Administration Amitriptyline HCl 10 mg 05/26/24 22:00 Amitriptyline 10 Mg Tablet PO 2200 JESSICA Atorvastatin Calcium 80 mg 05/25/24 22:00 05/25/24 22:18 Atorvastatin Calcium 80 Mg Tablet PO Not Given QHS JESSICA Budesonide 0.5 mg 05/26/24 06:00 05/26/24 07:42 Budesonide Respules 0.5 Mg/2 Ml Ampul.Neb. INHALATION 0.5 mg Q12H.RT JESSICA Administration Buspirone HCl 10 mg 05/25/24 22:00 05/26/24 09:18 Buspirone 5 Mg Tablet PO Not Given BID JESSICA Clopidogrel Bisulfate 75 mg 05/26/24 10:00 05/26/24 09:18 Clopidogrel Bisulfate 75 Mg Tablet PO Not Given DAILY JESSICA Duloxetine HCl 60 mg 05/25/24 22:00 05/26/24 09:18 Duloxetine Hcl 60 Mg Capsule PO Not Given BID JESSICA Enoxaparin Sodium 40 mg 05/26/24 10:00 05/26/24 10:19 Enoxaparin 40 Mg/0.4 Ml Syringe SC 40 mg DAILY JESSICA Administration Dextrose 250 mls @ 0 mls/hr 05/25/24 15:59 05/25/24 16:26 Dextrose 10%-Water IV Infused .Q0M PRN Infusion Hypoglycemia As Directed Norepinephrine Bitartrate 8 mg 250 mls @ 9.375 mls/hr 05/25/24 21:15 05/26/24 09:00 / Sodium Chloride CONT INF 0 mcg/min .[id number] JESSICA 0 mls/hr Titration Protocol 5 MCG/MIN Sodium Chloride 100 mls @ 15 mls/hr 05/25/24 21:23 IV .Q6H40M PRN Saline Flush Sodium Chloride 100 mls @ 15 mls/hr 05/25/24 21:23 IV .Q6H40M PRN Additional IVPB Infusion Levothyroxine Sodium 75 mcg 05/26/24 06:00 05/26/24 03:29 Levothyroxine 75 Mcg Tablet PO Not Given [id number] JESSICA Levothyroxine Sodium 50 mcg 05/28/24 06:00 Levothyroxine 50 Mcg Tablet PO [id number] JESSICA Liothyronine Sodium 10 mcg 05/26/24 06:00 05/26/24 03:29 Liothyronine 5 Mcg Tablet PO Not Given 0600 JESSICA Lorazepam 0.5 mg 05/25/24 21:20 Lorazepam 0.5 Mg Tablet PO TID PRN PRN Anxiety Mirtazapine 15 mg 05/25/24 22:00 05/25/24 22:18 Mirtazapine 15 Mg Tablet PO Not Given QHS JESSICA Montelukast Sodium 10 mg 05/25/24 22:00 05/25/24 22:18 Montelukast 10 Mg Tablet PO Not Given QHS JESSICA Ondansetron HCl 4 mg 05/25/24 21:20 Ondansetron 4 Mg/2 Ml Vial IV Q8H PRN PRN NAUSEA/VOMITING Pantoprazole Sodium 40 mg 05/25/24 22:00 05/26/24 09:18 Pantoprazole Sodium 40 Mg Tablet PO Not Given BID JESSICA Sodium Chloride 10 - 40 ml 05/25/24 21:23 05/26/24 02:15 0.9% Saline Lock 10 Ml Syringe IV 20 ml UD PRN Administration SALINE FLUSH
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
[2024-05-26] MEDS: DiphenhydrAMINE 50 MG/ML Syringe 25 MG IV (13:15)
[2024-05-26 13:48] LABS: Anion Gap 7 (5-15); BUN 6 mg/dL (7-18); BUN/Creat Ratio 12.9 RATIO (10-20); Calcium,Total 7.1 mg/dL (8.5-10.1); Chloride 115 mmol/L (98-107); Creatinine, Serum 0.46 mg/dL (0.55-1.02); EST Glomerular Filtration Rate 142 mL/min (>60); Est Glom Filt Rate - Afr Amer 172 mL/min (>60); Estimated Creatinine Clearance 54.29 ml/min; Glucose 69 mg/dL (74-106); Potassium 3.5 mmol/L (3.5-5.1); Sodium Level 143 mmol/L (136-145)
--- NOTE | 2024-05-26 16:36 | NURSING ---
This RN went into patients room to give x1IV Leo, Patient started yelling and swinging at this RN. Patient asked to stop and would not continued to yell at this time and kick and hit at this RN.
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
--- NOTE | 2024-05-26 17:11 | NURSING ---
This RN took water into the patient and applesauce to perform a swallow evaluation with the patient at this time. Patient had been asking for water. Patient stated I only asked for that 5 hours ago and I'm not taking it now This RN clarified with patient that she did not want the water and patient stated I will have your ass for this, watch your back because i'm coming for you. Patient was instructed this behavior was unacceptable and she shouted at the nurse to F off. This RN proceeded to the leave the patients room at this time.
--- NOTE | 2024-05-26 17:14 | NURSING ---
Patient refused to have pulse ox placed back on her hand again started swinging and kicking at this RN and another RN.
[2024-05-26] MEDS: Dextrose 10%-Water 250 ML 999 ML IV (17:30)
--- NOTE | 2024-05-26 17:30 | NURSING ---
This RN attemping to check patients Blood Sugar due to it being low earlier in the day on her BMP, patient again hitting, kicking and bitting at this RN several other RN's an APPLICATION TECHNICIAN and the SLABBER all present in the room. Patient hitting bed rail and scratching herself at this time. Patient now has two skin tears from scratching herself one to the right wrist and one to the left wrist. Patients blood sugar was 62 a bolus of D10 was given at this time. Patient yelling and screaming at nursing staff and calling everyone an ahole, mother Fker's and Bhe's. Patient then began to rip off her oxygen and her sats dropped to the low 70's. Oxygen was placed back on the patient as she attemtped to bite, hit and kick. Nursing staff left the room once the patient was stable.
[2024-05-26 17:53] LABS: Bedside Glucose 62 mg/dL (74-106)
[2024-05-26 18:16] LABS: Bedside Glucose 180 mg/dL (74-106)
[2024-05-26] MEDS: Pantoprazole Sodium 40 MG Tablet PO (20:13)
[2024-05-26] MEDS: Montelukast 10 MG Tablet PO (20:13)
[2024-05-26] MEDS: Mirtazapine 15 MG Tablet PO (20:13)
[2024-05-26] MEDS: busPIRone 5 MG Tablet 10 MG PO (20:13)
[2024-05-26] MEDS: Baclofen 10 MG Tablet PO (20:13)
[2024-05-26] MEDS: DULoxetine Hcl 60 MG Capsule PO (20:13)
[2024-05-26] MEDS: Amitriptyline 10 MG Tablet PO (20:14)
[2024-05-26] MEDS: Atorvastatin Calcium 80 MG Tablet PO (20:14)
[2024-05-26 23:48] LABS: Bedside Glucose 69 mg/dL (74-106)
[2024-05-27] VITALS (15 sets, daily range): BP systolic 114–155; BP diastolic 53–72; PULSE 84–98; RESP 18–25; TEMP 36.1–36.7; O2SAT 91–97; BMI 19.5
[2024-05-27] MEDS: Dextrose 5%/0.9% NaCl 1,000 ML 70 ML IV (00:39)
--- NOTE | 2024-05-27 03:17 | CPS ---
Patient refused PAP therapy for night time use.
[2024-05-27] MEDS: Liothyronine 5 MCG Tablet 10 MCG PO (05:16)
[2024-05-27] MEDS: Levothyroxine 75 MCG Tablet PO (05:16)
[2024-05-27 05:47] LABS: Bedside Glucose 123 mg/dL (74-106)
--- NOTE | 2024-05-27 07:26 | PCM.PN.INT ---
Assessment & Plan Assessment/Plan (1) Altered mental status: PLAN: Plan RECOMMENDATIONS: 1. Awaiting neurology follow-up. 2. Recommend dosage adjustment of Synthroid. 3. Continue bronchodilators. 4. Encourage incentive spirometer use and mobilize patient as tolerated. 5. The patient would benefit from geriatric psych evaluation. 6. The patient is medically stable for transfer out of the intensive care unit. 7. Will sign off from a critical care perspective. Please call with any additional questions. IMPRESSIONS: 1. Altered mental status Unclear etiology. The patient has a history of polypharmacy and frequent urinary tract infections. However, no discernible source of infection has yet to be identified. Toxicology screen was negative. CT head was unremarkable. Ammonia level was normal. The patient does have a history of hypothyroidism and would likely benefit from further doses adjustment of her Synthroid based upon TSH and free T4 levels. The patient was evaluated by neurology with clinical concern for oculogyric crisis with differential including withdrawal from anticholinergics or baclofen. The patient's baclofen was subsequently restarted. Overnight, the patient's mental status has completely cleared. She appears back to her baseline. She is alert and oriented to person place and time. I do suspect that the patient would likely benefit from geriatric psych evaluation. 2. History of chronic hypoxemic respiratory failure/COPD/pulmonary nodule Recommend continuing supplemental oxygen per home regimen along with scheduled bronchodilators. Continue outpatient follow-up in the pulmonary medicine clinic as scheduled. 3. History of obstructive sleep apnea/hypothyroidism/hypertension/hyperlipidemia/depression/anxiety/anemia Complicates care, management, recovery and prognosis. Continue supportive measures as noted above. This note was generated with [employer] dictation software. It may contain incorrect words, spelling, and punctuation that were not noted in checking the note before signing. Subjective Subjective The patient was seen and examined at the bedside this morning. Events from the last 24 hours have been reviewed. The patient is currently afebrile, hemodynamically stable and maintaining appropriate oxygen saturations on room air. The patient is from a mental status perspective has improved over the last 24 hours. She is currently alert and oriented to person place and time. She is able to answer questions appropriately. White blood cell count is normal. Creatinine is within normal limits. Objective Data Objective Data The patient's most recent lab work, culture data and imaging studies have all been personally reviewed. Infectious workup has been unrevealing to date. Vital Signs: Vital Signs Temp Pulse Resp BP Pulse Ox O2 Del Method O2 Flow Rate 97.0 F L 88 20 H 139/72 H 93 Nasal Cannula 4 05/27/24 00:00 05/27/24 07:00 05/27/24 07:00 05/27/24 07:00 05/27/24 07:00 05/27/24 07:00 05/27/24 07:00 FiO2 40 05/26/24 22:00 Oxygen Flow Rate (L/min) 4 Oxygen Delivery Method Nasal Cannula Weight: 110 lb 10.753 oz Body Mass Index (BMI) 19.5 Intake & Output: Intake and Output for Last 24 Hours 05/25/24 05/26/24 05/27/24 23:59 23:59 23:59 Intake Total 3845.00 / 3845.00 1297.24 / 1297.24 300 / 300 Output Total 1850 / 1850 1145 / 1145 375 / 375 Balance 1994. / 152.24 / 152.24 -75 / -75 Medical Nutrition Assessment Dietitian: Malnutrition Criteria Met Start: 05/26/24 10:15 Freq: Status: Active Protocol: Document 05/26/24 15:58 SB (Rec: 05/26/24 15:58 SB [id number]) Nutrition Malnutrition Evidence of Yes Malnutrition Exists Malnutrition (severe Chronic ): Evidenced By Suboptimal Energy Intake (Severe),Weight Loss (Severe) Clinical Problem Chronic Disease or Condition Related Malnutrition Etiology severe related to inadequate oral intake and increase energy expenditure d/t COPD Signs/Symptoms as evidenced by 12% unintentional weight loss x 4 months and PO meeting <75% of estimated nutrition needs >1 month. Status Active Problem Recommendation Dietitian Continue liberal regular diet d/t signs and symptoms of Recommendations/ malnutrition. Changes Will order 120ml ensure plus high protein TID with meals to help meet estimated calorie/protein needs. Reviewed and approved by Juany Dean RDN, T[facility]. Lab / Micro Data Attestation: I reviewed the patient's lab results. 05/27/24 07:50 05/27/24 07:50 Labs: Laboratory Results - last 24 hr 05/26/24 02:15: TSH 30.000 H, Free T4 0.50 L 05/26/24 13:10: Sodium 143, Potassium 3.5, Chloride 115 H, Carbon Dioxide 21.0, Anion Gap 7, BUN 6 L, Creatinine 0.46 L, Estim Creat Clear Calc 54.29, Est GFR (MDRD) Af Amer 172, Est GFR (MDRD) Non-Af 142, BUN/Creatinine Ratio 12.9, Glucose 69 L, Calcium 7.1 L 05/26/24 17:27: POC Glucose 62 L 05/26/24 17:59: POC Glucose 180 H 05/26/24 23:29: POC Glucose 69 L 05/27/24 05:29: POC Glucose 123 H Micro: Microbiology 05/26/24 11:58 Mucosa - Nasopharyngeal Coronavirus COVID-19 PCR - Final 05/26/24 11:58 Mucosa - Nasopharyngeal Respiratory Panel (PCR) - Final 05/25/24 16:00 Urine, Catheterized Urine Culture - Preliminary Culture exhibits no growth. ABG Data ABG results: ABG 05/26/24 08:45 Specimen Type ART Sample Site L Radial pH 7.34 L Bicarbonate Actual 24.0 Total CO2 25 Base Excess -2 O2 Saturation 95 O2 % 40.0 ABG pCO2 44.9 ABG pO2 83 Luke Test Positive O2 Delivery Device Not entered Vent Mode AVAPS Tidal Volume 450.0 POC PEEP 10 Radiography Diagnostic Testing: Radiology Impression Chest CTA 05/26/24 10:15 IMPRESSION: No evidence of pulmonary embolism. Bibasilar atelectasis and infiltrates as well as volume loss in the right middle lobe suggestive of a chronic bronchiectasis. Emphysematous changes. Stable postsurgical changes in the lower dorsal upper lumbar spine with loss of height of vertebrae. One or more dose reduction techniques were used (e.g., Automated exposure control, adjustment of the mA and/or kV according to patient size, use of iterative reconstruction technique). Reading Location: [place] [id number] Physical Exam Const alert, oriented x3 and no apparent distress General Appearance: cooperative HEENT normocephalic and head/scalp atraumatic Teeth and Gingiva: poor dentition Eyes EOMs intact bilaterally and conjunctivae normal Pupil: dilated Positive for bilateral Neck supple General: trachea midline Chest inspection of chest normal Resp normal respiratory effort Auscultation: Negative for rales, rhonchi or wheezes Cardio regular rate and regular rhythm GI normal to inspection, nondistended, normoactive bowel sounds Extremity General Extremity: amputation; Negative for clubbing or edema Skin no rashes or lesions noted Neuro CN's II-XII intact bilaterally, moves all extremities and no focal motor deficits Psych cooperative Mood & Affect: anxious Charges/Coding Visit Charges Inpatient E&M: 29831 Subs Hosp L2
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
[2024-05-27] MEDS: Ipratropium/Albuterol Sulfate 3 ML AMPUL.NEB INHALATION ×3 (07:43→19:51)
[2024-05-27] MEDS: Budesonide Respules 0.5 MG/2 ML AMPUL.NEB. INHALATION ×2 (07:43→19:51)
[2024-05-27 08:10] LABS: Absolute Lymphocyte Count 1.69 X10^3/uL (0.83-4.51); Absolute Neutrophil Count 6.9 X10^3/uL (2.0-7.7); Basophil# 0.07 X10^3/uL; Basophil% 0.7 % (0-1); Eosinophil# 0.25 X10^3/uL; Eosinophils% 2.6 % (0-5); Hematocrit 34.4 % (37-47); Hemoglobin 10.2 g/dL (12.0-15.0); Lymphocyte # 1.69 X10^3/ul (0.83-4.51); Lymphocyte % 17.8 % (19-41); Mean Corp Hgb Conc 29.7 g/dL (32-36); Mean Corpuscular Hgb 26.1 pg (27.0-32.0); Mean Platelet Vol. 8.9 fl (6.2-12.0); Monocyte# 0.59 X10^3/uL; Monocyte% 6.2 % (0-10); NRBC Flagged by Analyzer 0 % (0-5); Neutrophil # 6.85 X10^3/uL (2.7-7.7); Neutrophil % 72.4 % (47-70); POSITIVE MORPHOLOGY YES; Platelet Count 520 K/mm3 (150-450); RBC Distribution Width CV 23.7 % (11.6-14.6); RBC Distribution Width SD 75.2 fl (35.1-43.9); Red Blood Count 3.91 M/mm3 (4.2-5.4); White Blood Count 9.5 K/mm3 (4.4-11.0)
--- NOTE | 2024-05-27 08:11 | PN.NEURO_ITS ---
Assessment and Plan: Neuro Assessment/Plan TAJ BLANK is a 68 F with a past medical history of polypharmacy, frequent UTI infections, being evaluated by Teleneurology for AMS and atypical eye movements and dilated pupils. She has never had eyes movements like this before per her nurse who has seen her frequently before. She recently was stopped on a lot of medications for fear of polypharmacy. On exam there is concern for occulogyric crisis which can manifest with dilated pupils as well. Her pupils on exam are slightly dilated but mostly reactive. Ddx includes medication oeffect (withdrawal from anticholinergics of baclofen can cause similar symptoms), cannot rule out [employer] lesion. Patient's exam is greatly improved with restarting baclofen and after being on benztropine - inc baclofen to 15mg TID (was on 20mg TID previously). Can titrate down to 10mg TID after 1 week and remainder rec followup with PCP or pain doctor for management - continue benztropine 0.5mg BID until toomrrow then stop - can discontinue amitriptyline and topamax from her medication lists (topiramate was low enough dosage that can just stop). - consider changing ativan to something longer lasting like klonopin No infectious etiology found yet. Subject: Neurology Subjective Patient received benztropine and benadryl yesterday. She is a lot better today per her . She is more coherent and able to answer questions. Pt states the tremors in her hands have made it difficultyto hold things. She has been on 20mg TID of baclofen, states she is not taking it as prescribed but is taking for spasms in her back. Amitriptyline is not among her bottles EEG Results Procedure Details EEG Procedure Details: TAJ BLANK is a 68 year old F with a past medical history of , who presents for evaluation of Electroencephalogram on DATE at TIME Objective Data Objective Data Vital Signs: Vital Signs Temp Pulse Resp BP Pulse Ox O2 Del Method O2 Flow Rate 97.0 F L 86 20 H 139/72 H 97 Nasal Cannula 2 05/27/24 00:00 05/27/24 07:44 05/27/24 07:44 05/27/24 07:00 05/27/24 07:44 05/27/24 07:44 05/27/24 07:44 FiO2 40 05/26/24 22:00 Oxygen Flow Rate (L/min) 2 Oxygen Delivery Method Nasal Cannula Weight: 50.2 kg Body Mass Index (BMI) 19.5 Intake & Output: Intake and Output for Last 24 Hours 05/25/24 05/26/24 05/27/24 23:59 23:59 23:59 Intake Total 3845.00 / 3845.00 1297.24 / 1297.24 300 / 300 Output Total 1850 / 1850 1145 / 1145 375 / 375 Balance 1994. 152.24 / 152.24 -75 / -75 Medical Nutrition Assessment Dietitian: Malnutrition Criteria Met Start: 05/26/24 10:15 Freq: Status: Active Protocol: Document 05/26/24 15:58 SB (Rec: 05/26/24 15:58 SB [id number]) Nutrition Malnutrition Evidence of Yes Malnutrition Exists Malnutrition (severe Chronic ): Evidenced By Suboptimal Energy Intake (Severe),Weight Loss (Severe) Clinical Problem Chronic Disease or Condition Related Malnutrition Etiology severe related to inadequate oral intake and increase energy expenditure d/t COPD Signs/Symptoms as evidenced by 12% unintentional weight loss x 4 months and PO meeting <75% of estimated nutrition needs >1 month. Status Active Problem Recommendation Dietitian Continue liberal regular diet d/t signs and symptoms of Recommendations/ malnutrition. Changes Will order 120ml ensure plus high protein TID with meals to help meet estimated calorie/protein needs. Reviewed and approved by Juany Dean RDN, TUAN. Lab / Micro Data 05/27/24 07:50 05/27/24 07:50 Labs: Laboratory Results - last 24 hr 05/26/24 02:15: TSH 30.000 H, Free T4 0.50 L 05/26/24 13:10: Sodium 143, Potassium 3.5, Chloride 115 H, Carbon Dioxide 21.0, Anion Gap 7, BUN 6 L, Creatinine 0.46 L, Estim Creat Clear Calc 54.29, Est GFR (MDRD) Af Amer 172, Est GFR (MDRD) Non-Af 142, BUN/Creatinine Ratio 12.9, G lucose 69 L, Calcium 7.1 L 05/26/24 17:27: POC Glucose 62 L 05/26/24 17:59: POC Glucose 180 H 05/26/24 23:29: POC Glucose 69 L 05/27/24 05:29: POC Glucose 123 H Micro: Microbiology 05/26/24 11:58 Mucosa - Nasopharyngeal Coronavirus COVID-19 PCR - Final 05/26/24 11:58 Mucosa - Nasopharyngeal Respiratory Panel (PCR) - Final 05/25/24 16:00 Urine, Catheterized Urine Culture - Preliminary Culture exhibits no growth. ABG Data ABG results: ABG 05/26/24 08:45 Specimen Type ART Sample Site L Radial pH 7.34 L Bicarbonate Actual 24.0 Total CO2 25 Base Excess -2 O2 Saturation 95 O2 % 40.0 ABG pCO2 44.9 ABG pO2 83 Luke Test Positive O2 Delivery Device Not entered Vent Mode AVAPS Tidal Volume 450.0 POC PEEP 10 Radiography Diagnostic Testing: Radiology Impression Chest CTA 05/26/24 10:15 IMPRESSION: No evidence of pulmonary embolism. Bibasilar atelectasis and infiltrates as well as volume loss in the right middle lobe suggestive of a chronic bronchiectasis. Emphysematous changes. Stable postsurgical changes in the lower dorsal upper lumbar spine with loss of height of vertebrae. One or more dose reduction techniques were used (e.g., Automated exposure control, adjustment of the mA and/or kV according to patient size, use of iterative reconstruction technique). Reading Location: [place] [id number] Physical Exam Narrative -? NEURO: -? Mental Status: The patient was alert and oriented to time, place, and person. Normal recent/remote memory, concentration, and general fund of knowledge. -? Language: speech is clear.? Naming, repetition, fluency, and comprehension intact. -? Cranial Nerves: PERRL mm/brisk. EOMI, visual prasad full, no facial asymmetry, facial sensation intact, hearing intact Nystagmus is gone, no occulogyric or dystonic movements noted -? Motor: normal bulk, tone, and strength throughout. No pronator drift or satelliting. Upper and lower extremities equal bilaterally. R-AKA present, but able to lift her thigh appropriately Fine b/l tremor, small amplitude, high frequency, present more with postural movements, not present at rest -? Tone: is normal and bulk is normal -? Sensation- Intact to light touch bilaterally -? Coordination: No dysmetria on [id number] -? Gait- deferred
[2024-05-27 08:17] LABS: Differential Indicated SCAN CRITERIA MET
[2024-05-27] MEDS: DULoxetine Hcl 60 MG Capsule PO ×2 (08:23→20:48)
[2024-05-27] MEDS: Baclofen 10 MG Tablet PO (08:23)
[2024-05-27] MEDS: Clopidogrel Bisulfate 75 MG Tablet PO (08:23)
[2024-05-27] MEDS: Pantoprazole Sodium 40 MG Tablet PO ×2 (08:23→20:47)
[2024-05-27] MEDS: busPIRone 5 MG Tablet 10 MG PO ×2 (08:23→20:48)
[2024-05-27] MEDS: Enoxaparin 40 MG/0.4 ML Syringe SC (08:24)
[2024-05-27 08:42] LABS: Anion Gap 7 (5-15); BUN 3 mg/dL (7-18); Calcium,Total 7.7 mg/dL (8.5-10.1); Chloride 107 mmol/L (98-107); EST Glomerular Filtration Rate 105 mL/min (>60); Est Glom Filt Rate - Afr Amer 127 mL/min (>60); Estimated Creatinine Clearance 53.34 ml/min; Glucose 104 mg/dL (74-106); Potassium 2.9 mmol/L (3.5-5.1); Sodium Level 137 mmol/L (136-145)
[2024-05-27 09:02] LABS: Anisocytosis 2+
[2024-05-27] MEDS: Benztropine Mesylate 0.5 MG TABLET PO ×2 (09:39→20:47)
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
--- NOTE | 2024-05-27 11:30 | CASEMGMT ---
Addendum entered by Mary Dixon 05/27/24 13:18: Claudine from [facility] states that they are able to accept for SOC tentatively Thursday. This RN CM inquires if SW can be added to the referral. [facility] concurs and accepts for SN and SW. DC info updated. Original Note: See SW note. TC to [facility] and referral made for SN. Claudine from [facility] states that the pt's insurance is in-network and that they will look into the referral. Claudine states that if they are able to accept, SN will be able to determine if the pt would benefit from PT/OT. Awaiting return response. CM to follow.
--- NOTE | 2024-05-27 13:28 | CASEMGMT ---
Addendum entered by Mary Dixon 05/27/24 15:53: [facility] states that SOC is scheduled for Thursday now. DC Info updated. Original Note: RN JESSICA to pt room at this time. Pt at bedside. Pt and currently A&Ox3 and is calm resting in bed. This DEWAYNE LOPEZ informed the pt that [facility] has accepted the pt for SOC tentatively on Thursday. Pt states that she is willing to partake in the HH and agrees with the services. Pt denies wanting to review a list of other local in-network [facility] agencies and that she prefers [facility]. Pt denies further concerns. Pt also reports that she has portable oxygen at home, CPAP, and a concentrator. Pt current order through [facility] is 4L continuous. Pt reports that she has not been needing the additional oxygen as of late. Pt can bring in a portable tank at the time of DC if needed. Pt and pt deny further questions or concerns at this time.
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
[2024-05-27] MEDS: Baclofen 10 MG Tablet 15 MG PO ×2 (15:44→20:48)
[2024-05-27] MEDS: Atorvastatin Calcium 80 MG Tablet PO (20:47)
[2024-05-27] MEDS: Montelukast 10 MG Tablet PO (20:47)
[2024-05-27] MEDS: Mirtazapine 15 MG Tablet PO (20:48)
[2024-05-28] VITALS (13 sets, daily range): BP systolic 93–160; BP diastolic 53–77; PULSE 69–108; RESP 17–26; TEMP 36.1–36.6; O2SAT 91–98; BMI 19.9
[2024-05-28] MEDS: Levothyroxine 50 MCG Tablet PO (06:33)
[2024-05-28] MEDS: Liothyronine 5 MCG Tablet 10 MCG PO (06:33)
[2024-05-28] MEDS: Baclofen 10 MG Tablet 15 MG PO ×2 (06:34→13:34)
[2024-05-28] MEDS: Budesonide Respules 0.5 MG/2 ML AMPUL.NEB. INHALATION ×2 (07:33→18:55)
[2024-05-28] MEDS: Ipratropium/Albuterol Sulfate 3 ML AMPUL.NEB INHALATION ×3 (07:33→18:55)
[2024-05-28] MEDS: DULoxetine Hcl 60 MG Capsule PO (08:44)
[2024-05-28] MEDS: Pantoprazole Sodium 40 MG Tablet PO (08:44)
[2024-05-28] MEDS: Benztropine Mesylate 0.5 MG TABLET PO (08:45)
[2024-05-28] MEDS: Enoxaparin 40 MG/0.4 ML Syringe SC (08:45)
[2024-05-28] MEDS: busPIRone 5 MG Tablet 10 MG PO (08:45)
[2024-05-28] MEDS: Clopidogrel Bisulfate 75 MG Tablet PO (08:46)
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
[2024-05-28] MEDS: Benzonatate 100 MG Capsule 200 MG PO (15:29)
[2024-05-28] MEDS: dexMEDEtomidine 400 MCG in 0.9% Normal Saline (100mL Bag) 96 ML 6.4 MCG CONT INF (20:19)
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
[2024-05-29] VITALS (26 sets, daily range): BP systolic 87–143; BP diastolic 42–77; PULSE 57–91; RESP 16–22; TEMP 36.2–36.5; O2SAT 90–100; BMI 19.9
[2024-05-29] MEDS: dexMEDEtomidine 400 MCG in 0.9% Normal Saline (100mL Bag) 96 ML 12.8 MCG CONT INF ×2 (02:48→10:31)
[2024-05-29] MEDS: Budesonide Respules 0.5 MG/2 ML AMPUL.NEB. INHALATION ×2 (07:54→19:05)
[2024-05-29] MEDS: Ipratropium/Albuterol Sulfate 3 ML AMPUL.NEB INHALATION ×3 (07:54→19:05)
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
[2024-05-29] MEDS: guaiFENesin/D-Methorphan TAB.SR.12H 2 TABLET PO ×2 (09:52→20:50)
[2024-05-29] MEDS: DULoxetine Hcl 60 MG Capsule PO ×2 (09:53→20:50)
[2024-05-29] MEDS: Pantoprazole Sodium 40 MG Tablet PO ×2 (09:53→20:49)
[2024-05-29] MEDS: Enoxaparin 40 MG/0.4 ML Syringe SC (09:53)
[2024-05-29] MEDS: Clopidogrel Bisulfate 75 MG Tablet PO (09:54)
[2024-05-29] MEDS: busPIRone 5 MG Tablet 10 MG PO ×2 (09:54→20:49)
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
[2024-05-29 12:33] LABS: Basophil# 0.04 X10^3/uL; Basophil% 0.6 % (0-1); Eosinophils% 2.8 % (0-5); Hematocrit 27.7 % (37-47); Hemoglobin 8.3 g/dL (12.0-15.0); Lymphocyte % 18.1 % (19-41); Mean Corpuscular Hgb 26.7 pg (27.0-32.0); Mean Corpuscular Volume 89.1 fL (81-99); Mean Platelet Vol. 9.1 fl (6.2-12.0); Monocyte# 0.64 X10^3/uL; Monocyte% 8.9 % (0-10); NRBC Flagged by Analyzer 0 % (0-5); Neutrophil # 4.99 X10^3/uL (2.7-7.7); Neutrophil % 69.3 % (47-70); POSITIVE MORPHOLOGY YES; Platelet Count 407 K/mm3 (150-450); RBC Distribution Width CV 23.4 % (11.6-14.6); RBC Distribution Width SD 75.4 fl (35.1-43.9); Red Blood Count 3.11 M/mm3 (4.2-5.4); White Blood Count 7.2 K/mm3 (4.4-11.0)
[2024-05-29 12:43] LABS: Differential Indicated SCAN CRITERIA MET
[2024-05-29 12:48] LABS: ALB/GLOB Ratio 0.5 RATIO (0.9-2.4); AST(SGOT) 6 U/L (15-37); Alanine Aminotransfer ALT/SGPT 11 U/L (13-56); Albumin, Serum 1.9 g/dL (3.2-5.0); Alkaline Phosphatase 61 U/L (45-117); Anion Gap 6 (5-15); BUN 10 mg/dL (7-18); BUN/Creat Ratio 18.6 RATIO (10-20); Calcium,Total 8.4 mg/dL (8.5-10.1); Chloride 107 mmol/L (98-107); Creatinine, Serum 0.54 mg/dL (0.55-1.02); EST Glomerular Filtration Rate 120 mL/min (>60); Est Glom Filt Rate - Afr Amer 145 mL/min (>60); Estimated Creatinine Clearance 53.43 ml/min; Globulin 3.5 g/dL (2.2-4.2); Glucose 126 mg/dL (74-106); Potassium 3.2 mmol/L (3.5-5.1); Protein, Total 5.4 g/dL (6.4-8.2); Sodium Level 141 mmol/L (136-145)
[2024-05-29 12:53] LABS: Ovalocyte 1+; Platelet Estimate A (ADEQ); Target Cells 1+
[2024-05-29 12:54] LABS: Acanthocytes 1+; Anisocytosis 2+; Polychromasia 1+
[2024-05-29] MEDS: Baclofen 10 MG Tablet 15 MG PO (20:49)
[2024-05-29] MEDS: Mirtazapine 15 MG Tablet PO (20:49)
[2024-05-29] MEDS: Atorvastatin Calcium 80 MG Tablet PO (20:50)
[2024-05-29] MEDS: Montelukast 10 MG Tablet PO (20:50)
--- NOTE | 2024-05-29 22:32 | NEURO.PNOTE ---
Assessment and Plan: Neuro Assessment/Plan TAJ BLANK is a 68 F with a past medical history of polypharmacy, frequent UTI infections, being evaluated by Teleneurology for AMS and atypical eye movements and dilated pupils. She has never had eyes movements like this before per her nurse who has seen her frequently before. She recently was stopped on a lot of medications for fear of polypharmacy. On exam there is concern for occulogyric crisis which can manifest with dilated pupils as well. Her pupils on exam are slightly dilated but mostly reactive. Ddx includes medication oeffect (withdrawal from anticholinergics of baclofen can cause similar symptoms), cannot rule out CURING SUPERVISOR lesion. Patient's exam greatly improved with restarting baclofen and after being on benztropine, however now with worsening confusion and delirium. No new abnormal eye movements. - cont baclofen to 15mg TID. Can titrate down to 10mg TID after 1 week and remainder rec followup with PCP or pain doctor for management - defer management of agitation to primary team. Consider repeating infection screen - can discontinue amitriptyline and topamax from her medication lists (topiramate was low enough dosage that can just stop). - consider changing ativan to something longer lasting like klonopin Teleneurology will sign off but please call us back if persistent AMS without improvement but likely this continues to represent some medication withdrawal. Subject: Neurology Subjective Overnight with increased agitation and confusion. Asked me today about putting away the pizza. Placed on precedex and improved mentation EEG Results Procedure Details EEG Procedure Details: TAJ BLANK is a 69 year old F with a past medical history of , who presents for evaluation of Electroencephalogram on DATE at TIME Objective Data Objective Data Vital Signs: Vital Signs Temp Pulse Resp BP Pulse Ox O2 Del Method O2 Flow Rate 97.2 F L 88 18 127/68 H 98 Nasal Cannula 4 05/29/24 20:00 05/29/24 21:00 05/29/24 21:00 05/29/24 21:00 05/29/24 21:00 05/29/24 21:00 05/29/24 21:00 FiO2 40 05/26/24 22:00 Oxygen Flow Rate (L/min) 4 Oxygen Delivery Method Nasal Cannula Weight: 51 kg Body Mass Index (BMI) 19.9 Intake & Output: Intake and Output for Last 24 Hours 05/27/24 05/28/24 05/29/24 23:59 23:59 23:59 Intake Total 1007 / 1367 497.16 / 508.66 242.37 / 242.37 Output Total 1400 / 1725 1150 / 1150 450 / 450 Balance -393 / -358 -652.84 / -641.34 -207.63 / -207.63 Medical Nutrition Assessment Dietitian: Malnutrition Criteria Met Start: 05/26/24 10:15 Freq: Status: Active Protocol: Document 05/27/24 10:07 [facility] (Rec: 05/27/24 10:07 [facility] [id number]) Nutrition Malnutrition Evidence of Yes Malnutrition Exists Malnutrition (severe Chronic ): Evidenced By Suboptimal Energy Intake (Severe),Weight Loss (Severe) Clinical Problem Chronic Disease or Condition Related Malnutrition Etiology severe related to inadequate oral intake and increase energy expenditure d/t COPD Signs/Symptoms as evidenced by 18% unintentional weight loss x 4 months and PO meeting <75% of estimated nutrition needs >1 month. Status Active Problem Recommendation Dietitian Continue liberal regular diet d/t signs and symptoms of Recommendations/ malnutrition. Changes Will order 120ml ensure plus high protein TID with meals to help meet estimated calorie/protein needs. Lab / Micro Data 05/29/24 12:25 05/29/24 12:25 Labs: Laboratory Results - last 24 hr 05/29/24 12:25: WBC 7.2, RBC 3.11 L, Hgb 8.3 L, Hct 27.7 L, MCV 89.1, MCH 26.7 L, MCHC 30.0 L, RDW Std Deviation 75.4 H, RDW Coeff of [place]aro 23.4 H, Plt Count 407, MPV 9.1, Immature Gran % (Auto) 0.300, Neut % (Auto) 69.3, Lymph % (Auto) 18.1 L, [place] % (Auto) 8.9, Eos % (Auto) 2.8, Baso % (Auto) 0.6, Absolute Neuts (auto) 5.0, Absolute Lymphs (auto) 1.30, Nucleated RBC % 0, Platelet Estimate A, Polychromasia 1+, Anisocytosis 2+, Target Cells 1+, Ovalocytes 1+, Acanthocytes (Spur) 1+, Sodium 141, Potassium 3.2 L, Chloride 107, Carbon Dioxide 28.0, Anion Gap 6, BUN 10, Creatinine 0.54 L, Estim Creat Clear Calc 53.43, Est GFR (MDRD) Af Amer 145, Est GFR (MDRD) Non-Af 120, BUN/Creatinine Ratio 18.6, Glucose 126 H, Calcium 8.4 L, Total Bilirubin 0.20, AST 6 L, ALT 11 L, Alkaline Phosphatase 61, Total Protein 5.4 L, Albumin 1.9 L, Globulin 3.5, Albumin/Globulin Ratio 0.5 L Micro: Microbiology 05/25/24 16:00 Urine, Catheterized Urine Culture - Final Culture exhibits no growth. 05/26/24 11:58 Mucosa - Nasopharyngeal Coronavirus COVID-19 PCR - Final 05/26/24 11:58 Mucosa - Nasopharyngeal Respiratory Panel (PCR) - Final Physical Exam Narrative -? NEURO: -? Mental Status: The patient was alert and oriented to place, and person but poorly to time. Normal recent/remote memory, concentration, and general fund of knowledge. Intermittently confused and interjects inappropriate comments to her situation but then states she knows she is mistaken -? Language: speech is dysarthric.? Naming, repetition, fluency, and comprehension intact. -? Cranial Nerves: R pupil 4mm reactive, L pupil 4mm reactive. EOMI, visual prasad full, no facial asymmetry, facial sensation intact, hearing intact Nystagmus is gone, no occulogyric or dystonic movements noted -? Motor: normal bulk, tone, and strength throughout. No pronator drift or satelliting. Upper and lower extremities equal bilaterally. R-AKA present, but able to lift her thigh appropriately Tremor improved -? Tone: is normal and bulk is normal -? Sensation- Intact to light touch bilaterally -? Coordination: No dysmetria on [id number] -? Gait- deferred
[2024-05-29] MEDS: dexMEDEtomidine 400 MCG in 0.9% Normal Saline (100mL Bag) 96 ML 5.1 MCG CONT INF (22:46)
[2024-05-30] VITALS (21 sets, daily range): BP systolic 131–157; BP diastolic 68–92; PULSE 79–100; RESP 18–22; TEMP 36.2–36.6; O2SAT 91–99; BMI 20.2
[2024-05-30] MEDS: Baclofen 10 MG Tablet 15 MG PO ×3 (06:22→21:25)
[2024-05-30] MEDS: Liothyronine 5 MCG Tablet 10 MCG PO (06:22)
[2024-05-30] MEDS: Levothyroxine 75 MCG Tablet PO (06:22)
[2024-05-30] MEDS: Ipratropium/Albuterol Sulfate 3 ML AMPUL.NEB INHALATION ×4 (07:06→19:13)
[2024-05-30] MEDS: Budesonide Respules 0.5 MG/2 ML AMPUL.NEB. INHALATION ×3 (07:06→19:13)
[2024-05-30 08:00] LABS: Anion Gap 7 (5-15); BUN 11 mg/dL (7-18); BUN/Creat Ratio 19.2 RATIO (10-20); Calcium,Total 8.8 mg/dL (8.5-10.1); Chloride 106 mmol/L (98-107); Creatinine, Serum 0.57 mg/dL (0.55-1.02); EST Glomerular Filtration Rate 111 mL/min (>60); Est Glom Filt Rate - Afr Amer 134 mL/min (>60); Estimated Creatinine Clearance 54.38 ml/min; Glucose 80 mg/dL (74-106); Potassium 3.4 mmol/L (3.5-5.1); Sodium Level 141 mmol/L (136-145)
[2024-05-30] MEDS: guaiFENesin/D-Methorphan TAB.SR.12H 2 TABLET PO ×2 (08:02→21:24)
[2024-05-30] MEDS: Clopidogrel Bisulfate 75 MG Tablet PO (08:02)
[2024-05-30] MEDS: busPIRone 5 MG Tablet 10 MG PO ×2 (08:03→22:09)
[2024-05-30] MEDS: Pantoprazole Sodium 40 MG Tablet PO ×2 (08:03→21:26)
[2024-05-30] MEDS: Enoxaparin 40 MG/0.4 ML Syringe SC (08:04)
[2024-05-30] MEDS: DULoxetine Hcl 60 MG Capsule PO ×2 (08:05→21:26)
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
--- NOTE | 2024-05-30 11:47 | CASEMGMT ---
Social Work- SW received notice that physician would like eve-psych assessment. SW completed referral to [facility]. SW called to verify receipt and asked [facility] to call ICU floor with assessment time. RNCM updated. SW remains available to follow. TAO Saul
[2024-05-30] MEDS: Benztropine Mesylate 0.5 MG TABLET PO ×2 (11:53→21:24)
--- NOTE | 2024-05-30 13:11 | CASEMGMT ---
[facility] HH updated on pt status and SOC date is now TBD depending on Thelma-Psych eval and DC date. CM to follow.
[2024-05-30] MEDS: Benzonatate 100 MG Capsule 200 MG PO (17:10)
[2024-05-30] MEDS: Mirtazapine 15 MG Tablet PO (21:25)
[2024-05-30] MEDS: Atorvastatin Calcium 80 MG Tablet PO (21:25)
[2024-05-30] MEDS: Montelukast 10 MG Tablet PO (21:25)
[2024-05-31 00:21] VITALS: BP 160/7; PULSE 88; RESP 16; TEMP 36.9; O2SAT 95
[2024-05-31 04:28] VITALS: BMI 19.7
[2024-05-31] MEDS: Liothyronine 5 MCG Tablet 10 MCG PO (05:18)
[2024-05-31] MEDS: Baclofen 10 MG Tablet 15 MG PO ×3 (05:18→20:33)
[2024-05-31] MEDS: Levothyroxine 75 MCG Tablet PO (05:19)
[2024-05-31 06:52] LABS: Anion Gap 5 (5-15); BUN 9 mg/dL (7-18); BUN/Creat Ratio 16.5 RATIO (10-20); Calcium,Total 8.8 mg/dL (8.5-10.1); Chloride 103 mmol/L (98-107); Creatinine, Serum 0.54 mg/dL (0.55-1.02); EST Glomerular Filtration Rate 118 mL/min (>60); Est Glom Filt Rate - Afr Amer 142 mL/min (>60); Estimated Creatinine Clearance 52.91 ml/min; Glucose 88 mg/dL (74-106); Potassium 3.5 mmol/L (3.5-5.1); Sodium Level 139 mmol/L (136-145)
[2024-05-31] MEDS: Budesonide Respules 0.5 MG/2 ML AMPUL.NEB. INHALATION (07:01)
[2024-05-31] MEDS: Ipratropium/Albuterol Sulfate 3 ML AMPUL.NEB INHALATION ×2 (07:01→13:35)
[2024-05-31 07:02] VITALS: PULSE 83; RESP 18; O2SAT 96
--- NOTE | 2024-05-31 08:40 | CASEMGMT ---
Pt appt with Dr Summers today canceled d/t pt being unable to attend
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
[2024-05-31 10:00] VITALS: BP 124/74; PULSE 97; RESP 18; TEMP 36.4; O2SAT 95
[2024-05-31] MEDS: guaiFENesin/D-Methorphan TAB.SR.12H 2 TABLET PO ×2 (10:34→20:32)
[2024-05-31] MEDS: Clopidogrel Bisulfate 75 MG Tablet PO (10:35)
[2024-05-31] MEDS: DULoxetine Hcl 60 MG Capsule PO ×2 (10:35→20:33)
[2024-05-31] MEDS: Benztropine Mesylate 0.5 MG TABLET PO ×2 (10:35→20:33)
[2024-05-31] MEDS: Enoxaparin 40 MG/0.4 ML Syringe SC (10:35)
[2024-05-31] MEDS: busPIRone 5 MG Tablet 10 MG PO ×2 (10:36→20:33)
[2024-05-31] MEDS: Pantoprazole Sodium 40 MG Tablet PO ×2 (10:36→20:33)
[2024-05-31] MEDS: Potassium Chloride Oral Tablet 20 MEQ 40 MEQ PO (10:41)
--- NOTE | 2024-05-31 10:58 | CASEMGMT ---
Social Work RN spoke w/crisis this morning. They are still working on finding placement for pt. SW will continue to follow. VERNON Ware
[2024-05-31 13:38] VITALS: PULSE 90; RESP 20; O2SAT 95
--- NOTE | 2024-05-31 13:43 | EKG12_ITS ---
Test Reason : MEDICAL CLEARANCE Blood Pressure : */* mmHG Vent. Rate : 91 BPM Atrial Rate : 91 BPM P-R Int : 156 ms QRS Dur : 90 ms QT Int : 378 ms P-R-T Axes : 67 54 74 degrees QTcB Int : 464 ms Normal sinus rhythm Nonspecific ST and T wave abnormality Abnormal ECG When compared with ECG of 25-May-2024 15:08, Vent. rate has increased by 31 bpm Confirmed by BIENVENIDO MCKEON MD ([id number]), supervising film or videotape editor SYLVIA NANCE ([id number]) on 06/02/2024 7:12:41 AM Referred By: David Blackwell Confirmed By: BIENVENIDO MCKEON MD
--- NOTE | 2024-05-31 14:42 | CASEMGMT ---
Social Work [facility] called ICU, they asked for an EKG and pink slip to be faxed. Both were faxed to [facility]. SW called [facility], inquired if they have made family aware that we are working on psychiatric placement. They have not as [facility] was not certain that they would find placement for pt. SW will continue to follow, will speak w/family or ask [facility] to speak w/family once we know whether or not pt is accepted. VERNON Ware
[2024-05-31 16:00] VITALS: BP 147/72; PULSE 96; RESP 18; TEMP 36.6; O2SAT 96
--- NOTE | 2024-05-31 16:53 | CASEMGMT ---
Social Work- YAMILETH received a call from Darian at [facility] asking for an amended pink slip with their name. [place] slip amended and faxed over. YAMILETH called [facility] to confirm receipt of fax. [facility] reports that they have accepted patient and notified mental health prior. YAMILETH received information for discharge planning from [facility]. Pt will be admitted at the [place] location to room 204A. Nursing line is [phone] Option 2. Pt family will need to bring c-pap. Pt can admit any time. YAMILETH updated bedside nurse. YAMILETH called pt son Kamron to provide discharge planning update. Pt son is driving and asked SW to call tomorrow with phone number and room number so he can write information down. YAMILETH called pt spouse whose phone went straight to a message that there is no voicemail set up. SW confirmed that pt spouse was not on ICU floor/with pt. YAMILETH completed transport form and green sheet. SW called and set up transport for 9PM, although [facility] reports that if they are running late, pt may be bumped to tomorrow morning. YAMILETH updated bedside nurse on transport time. YAMILETH remains available to follow. Plan: [facility] location TAO Saul
[2024-05-31] MEDS: Atorvastatin Calcium 80 MG Tablet PO (20:33)
[2024-05-31] MEDS: Montelukast 10 MG Tablet PO (20:34)
[2024-05-31] MEDS: Mirtazapine 15 MG Tablet PO (20:34)
[2024-05-31 20:38] VITALS: BP 154/91; PULSE 102; RESP 20; TEMP 36.1; O2SAT 94
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
--- NOTE | 2024-06-01 09:21 | CASEMGMT ---
Alexus from [facility] notified of pt disposition and HH referral canceled at this time. [facility] states that they were unsure if they were willing to take the pt after all d/t the pt behavioral issues.
--- NOTE | 2024-06-01 09:38 | CASEMGMT ---
Social Work- SW called pt spouse x 2. SW continues to receive message that voicemail not set up. SW called pt son to update on attempts to contact pt spouse. Pt son reports that he spoke with [facility] and pt has settled in. Pt son reports that he is on the way to pt spouse home. SW called pt son back when he arrived at pt spouse home to provide updates to spouse, including the request to take cpap to [facility] and to request pt spouse warehouse order picker motorized scooter in ICU. Pt spouse agreeable. Pt spouse appreciative of updates. TAO Saul
--- NOTE | 2024-07-16 14:20 | CASEMGMT ---
Social Work- SW reached out to pt via telephone to follow up for any community needs and offer support. SW identified self and purpose of call; pt agreeable to conversation. Pt reports that she has been home a couple weeks, has all of her new medications and reports taking them appropriately as prescribed. Pt reports that she has not had any issues with transportation to appointments. Pt reports that she feels her blood pressure and oxygen are at baseline and reports no concerns regarding either. Pt denies any need for community resources or social assistance. Pt reports no concerns regarding living situation at this time. TAO Saul
== END 2024-05-31 21:43 | DRG 70 ==
LOC: ED 19:15 → PCU 19:30 → ICU 21:15
PROVIDERS: Internal Medicine; Internal Medicine Critical Care Medicine; Admitting Provider Hospitalist; Emergency Provider Emergency Medicine; PCP Family Medicine; Referring Provider Hospitalist; Visit Provider Internal Medicine
DX: G93.40 Encephalopathy, unspecified (principal); E43 Unspecified severe protein-calorie malnutrition; J96.21 Acute and chronic respiratory failure with hypoxia; F05 Delirium due to known physiological condition; F19.230 Other psychoactive substance dependence with withdrawal, uncomplicated; R44.3 Hallucinations, unspecified; I11.0 Hypertensive heart disease with heart failure; E86.0 Dehydration; J44.9 Chronic obstructive pulmonary disease, unspecified; F32.A Depression, unspecified; E89.0 Postprocedural hypothyroidism; D64.9 Anemia, unspecified; Z89.519 Acquired absence of unspecified leg below knee; I50.9 Heart failure, unspecified; E78.5 Hyperlipidemia, unspecified; K21.00 Gastro-esophageal reflux disease with esophagitis, without bleeding; F17.210 Nicotine dependence, cigarettes, uncomplicated; M79.7 Fibromyalgia; F41.9 Anxiety disorder, unspecified; R00.1 Bradycardia, unspecified; J47.9 Bronchiectasis, uncomplicated; H55.00 Unspecified nystagmus; Z78.1 Physical restraint status; G89.4 Chronic pain syndrome; Z79.51 Long term (current) use of inhaled steroids; Z79.890 Hormone replacement therapy; Z79.02 Long term (current) use of antithrombotics/antiplatelets; F43.10 Post-traumatic stress disorder, unspecified; Z99.81 Dependence on supplemental oxygen; T48.1X5A Adverse effect of skeletal muscle relaxants [neuromuscular blocking agents], initial encounter; T42.6X5A Adverse effect of other antiepileptic and sedative-hypnotic drugs, initial encounter; X58.XXXA Exposure to other specified factors, initial encounter; Z98.890 Other specified postprocedural states; Z90.49 Acquired absence of other specified parts of digestive tract; Z95.5 Presence of coronary angioplasty implant and graft; Z91.414 Personal history of adult intimate partner abuse; Z87.440 Personal history of urinary (tract) infections; R91.1 Solitary pulmonary nodule; R45.1 Restlessness and agitation; Z88.1 Allergy status to other antibiotic agents; Z88.2 Allergy status to sulfonamides; Z88.8 Allergy status to other drugs, medicaments and biological substances

== ENCOUNTER → 2024-06-23 | Outpatient (CLI) | payer MEDICARE, SELFPAY ==
[2024-06-23 12:24] LABS: Absolute Lymphocyte Count 2.73 X10^3/uL (0.83-4.51); Absolute Neutrophil Count 9.8 X10^3/uL (2.0-7.7); Basophil# 0.03 X10^3/uL; Basophil% 0.2 % (0-1); Eosinophils% 0.7 % (0-5); Hematocrit 33.2 % (37-47); Hemoglobin 10.4 g/dL (12.0-15.0); Lymphocyte # 2.73 X10^3/ul (0.83-4.51); Lymphocyte % 19.5 % (19-41); Mean Corp Hgb Conc 31.3 g/dL (32-36); Mean Corpuscular Hgb 27.5 pg (27.0-32.0); Mean Corpuscular Volume 87.8 fL (81-99); Mean Platelet Vol. 10.4 fl (6.2-12.0); Monocyte# 1.24 X10^3/uL; Monocyte% 8.9 % (0-10); NRBC Flagged by Analyzer 0 % (0-5); Neutrophil # 9.83 X10^3/uL (2.7-7.7); Neutrophil % 70.3 % (47-70); Platelet Count 484 K/mm3 (150-450); RBC Distribution Width CV 19.6 % (11.6-14.6); RBC Distribution Width SD 63.4 fl (35.1-43.9); Red Blood Count 3.78 M/mm3 (4.2-5.4)
[2024-06-23 13:57] LABS: ALB/GLOB Ratio 1.1 RATIO (0.9-2.4); AST(SGOT) 23 U/L (<=31); Alanine Aminotransfer ALT/SGPT 16 U/L (<=34); Albumin, Serum 3.4 g/dL (3.4-4.8); Alkaline Phosphatase 67 U/L (35-104); Anion Gap 14 (5-15); BUN 22 mg/dL (4-19); BUN/Creat Ratio 22.4 RATIO (10-20); Calcium 9.1 mg/dL (7.6-11.0); Carbon Dioxide 24.9 mmol/L (22.0-29.0); Chloride 104 mmol/L (96-108); EST Glomerular Filtration Rate 64 (>60); Free T3 3.8 pg/mL (2.18-3.98); Glucose 87 mg/dL (70-99); Potassium 3.4 mmol/L (3.3-5.1); Protein, Total 6.4 g/dL (5.9-8.4); Sodium Level 143 mmol/L (133-145); Total Bilirubin 0.17 mg/dL (0.00-1.30); Vitamin D,25 Hydroxy 44.6 ng/mL (30-100)
== END | disposition home or self-care (01) ==
LOC: BFHLAB 09:16
PROVIDERS: PCP Family Medicine; Referring Provider Family Medicine; Visit Provider Family Medicine
DX: E03.9 Hypothyroidism, unspecified (principal); E55.9 Vitamin D deficiency, unspecified
CPT/HCPCS: 36415; 80053; 82306; 84439; 84443; 84481; 85025

== ENCOUNTER → 2024-06-30 | Outpatient (CLI) | payer MEDICARE, SELFPAY ==
--- NOTE | 2024-06-30 11:23 | US_ITS ---
PROCEDURE: ULTRASOUND EXTREMITY NONVASCULAR LIMITED/SOFT TISSUE REASON FOR EXAM: SWELLING POSTERIOR ASPECT OF THE LEFT UPPER EXTREMITY. TECHNIQUE: Real-time grayscale and color flow imaging was performed along with routine image documentation. COMPARISON: None. FINDINGS: A sonolucent, irregular-shaped subcutaneous kofi in the left posterior forearm at the site of the palpable lump. This area measures 3.50 x 1.01 x 1.56 cm. Surrounding soft tissues are unremarkable US/Ext Non Vasc Limited/Soft Tiss IMPRESSION: 1. An irregular shaped cystic mass in the left posterior forearm. Reading Location: [place] [address]
== END | disposition home or self-care (01) ==
LOC: US 11:16
PROVIDERS: PCP Family Medicine; Referring Provider Nurse Practitioner Family; Visit Provider Nurse Practitioner Family
DX: R22.32 Localized swelling, mass and lump, left upper limb (principal)
CPT/HCPCS: 76882

== ENCOUNTER 2024-08-05 09:20 | Outpatient (CLI) | payer MEDICARE, SELFPAY ==
[2024-08-05 09:44] VITALS: BP 98/46; PULSE 66; RESP 14; TEMP 35.5; O2SAT 95; BMI 17.2
[2024-08-05] MEDS: DENOSUMAB 60 MG/ML SC (09:46)
== END 2024-08-05 23:59 | disposition home or self-care (01) ==
LOC: MEDOUTP 09:24
PROVIDERS: PCP Family Medicine; Referring Provider Family Medicine; Visit Provider Family Medicine
DX: M81.0 Age-related osteoporosis without current pathological fracture (principal)
CPT/HCPCS: 96372; J0897

== ENCOUNTER → 2024-08-18 | Outpatient (CLI) | payer MEDICARE, SELFPAY ==
--- NOTE | 2024-08-18 14:53 | CT_ITS ---
PROCEDURE: CHEST WITHOUT CONTRAST 08/18/2024 REASON FOR EXAM: NODULE IN SMOKER TECHNIQUE: Chest CT without contrast. Coronal and Sagittal reconstruction series were provided. One or more dose reduction techniques were used (e.g., Automated exposure control, adjustment of the mA and/or kV according to patient size, use of iterative reconstruction technique COMPARISON: 05/26/2024 FINDINGS: Hardware: Spinal hardware Lymph nodes: Unremarkable Heart and Vasculature: No cardiomegaly. Atherosclerotic calcifications of the thoracic aorta. Thoracic aorta and pulmonary arteries have normal contours; noncontrast technique limits evaluation. Coronary Artery Calcifications: Present Lungs and Airways: Mild emphysema. Interval development of a 1.2 cm noncalcified nodule in the periphery of the left upper lobe of the lungs on image 58 and follow-up CT is recommended document resolution. Bilateral cylindrical bronchiectasis with scarring in the right middle lobe and lingula and mucous plugging in the left lower lobe. 3 cm pneumatocele in the left lower lobe. Pleura: No pleural effusion Upper Abdomen: Bones: Status post transpedicular fixation in the thoracolumbar spine about a compression fracture treated with corpectomy. Other mild compression fractures in the thoracic spine. Healed fracture of the superior sternum. Multiple healed right rib fractures. CT/Chest without Contrast IMPRESSION: Coronary artery calcification (CAC) is is present Mild emphysema with interval development of a 1.2 cm noncalcified left upper lo be nodule. Follow-up CT is recommended in 6 weeks to document resolution. Reading Location: [id number]
== END | disposition home or self-care (01) ==
LOC: CT 14:53
PROVIDERS: PCP Family Medicine; Referring Provider Nurse Practitioner Acute Care; Visit Provider Nurse Practitioner Acute Care
DX: R91.1 Solitary pulmonary nodule (principal); F17.200 Nicotine dependence, unspecified, uncomplicated
CPT/HCPCS: 71250

== ENCOUNTER → 2024-08-25 | Outpatient (CLI) | payer MEDICARE, SELFPAY ==
[2024-08-25 12:22] LABS: Absolute Lymphocyte Count 3.11 X10^3/uL (0.83-4.51); Absolute Neutrophil Count 6.6 X10^3/uL (2.0-7.7); Basophil# 0.06 X10^3/uL; Basophil% 0.6 % (0-1); Eosinophil# 0.12 X10^3/uL; Eosinophils% 1.1 % (0-5); Hematocrit 37.1 % (37-47); Lymphocyte # 3.11 X10^3/ul (0.83-4.51); Mean Corp Hgb Conc 32.3 g/dL (32-36); Mean Corpuscular Hgb 28.4 pg (27.0-32.0); Mean Corpuscular Volume 87.9 fL (81-99); Mean Platelet Vol. 9.3 fl (6.2-12.0); Monocyte# 0.75 X10^3/uL; NRBC Flagged by Analyzer 0 % (0-5); Neutrophil # 6.63 X10^3/uL (2.7-7.7); Neutrophil % 61.9 % (47-70); Platelet Count 418 K/mm3 (150-450); RBC Distribution Width CV 14.8 % (11.6-14.6); RBC Distribution Width SD 47.1 fl (35.1-43.9); Red Blood Count 4.22 M/mm3 (4.2-5.4); White Blood Count 10.7 K/mm3 (4.4-11.0)
[2024-08-25 13:37] LABS: Free T3 5.9 pg/mL (2.18-3.98)
[2024-08-25 13:44] LABS: ALB/GLOB Ratio 1.2 RATIO (0.9-2.4); AST(SGOT) 24 U/L (<=31); Alanine Aminotransfer ALT/SGPT 20 U/L (<=34); Albumin, Serum 3.9 g/dL (3.4-4.8); Alkaline Phosphatase 73 U/L (35-104); Anion Gap 12 (5-15); BUN 27 mg/dL (4-19); Calcium,Total 9.2 mg/dL (7.6-11.0); Carbon Dioxide 26.9 mmol/L (21.0-32.0); Chloride 100 mmol/L (98-108); Creatinine, Serum 1.07 mg/dL (0.70-1.20); EST Glomerular Filtration Rate 56 (>60); Globulin 3.2 g/dL (2.2-4.2); Glucose 85 mg/dL (70-99); Potassium 3.7 mmol/L (3.3-5.1); Sodium Level 139 mmol/L (133-145); Total Bilirubin < 0.15 mg/dL (0.00-1.30)
== END | disposition home or self-care (01) ==
LOC: MTLAB 10:29
PROVIDERS: PCP Family Medicine; Referring Provider Family Medicine; Visit Provider Family Medicine
DX: E03.9 Hypothyroidism, unspecified (principal); Z51.81 Encounter for therapeutic drug level monitoring
CPT/HCPCS: 36415; 80053; 84439; 84443; 84481; 85025

== ENCOUNTER → 2024-09-09 | Outpatient (CLI) | payer MEDICARE, SELFPAY | END | disposition home or self-care (01) | LOC: LAB 16:57 | PROVIDERS: PCP Family Medicine; Visit Provider Otolaryngology | DX: J32.8 Other chronic sinusitis (principal) | CPT/HCPCS: 87070; 87077; 87186; 87205 ==

== ENCOUNTER → 2024-11-09 | Outpatient (CLI) | payer MEDICARE, SELFPAY ==
--- NOTE | 2024-11-09 08:15 | CT_ITS ---
EXAM: CT Chest Without Intravenous Contrast CLINICAL INDICATION: LUNG NODULE TECHNIQUE: Axial computed tomography images of the chest without intravenous contrast. This CT exam was performed using one or more of the following dose reduction techniques: automated exposure control, adjustment of the mA and/or kV according to patient size, and/or use of iterative reconstruction technique. COMPARISON: No relevant prior studies available. FINDINGS: LUNGS AND PLEURAL SPACES: Stable 1.2 cm nodule of the anterior lateral right upper lobe. Lung emphysema/COPD. New 7 mm nodule of the anterior right upper lobe. New 4 mm nodule of the anterior lateral right upper lobe. New 4 mm subpleural nodule of the lingula. New 3 mm nodule posterior right lower lobe. No consolidation. No significant effusion. No pneumothorax. HEART: Unremarkable. No cardiomegaly. No significant pericardial effusion. No significant coronary artery calcifications. MEDIASTINUM: A few prominent mediastinal lymph nodes measuring up to 6 mm. BONES/JOINTS: Unremarkable. No acute fracture. SOFT TISSUES: Unremarkable. VASCULATURE: Scattered calcified atherosclerotic disease of aorta. No thoracic aortic aneurysm. LYMPH NODES: See above. CT/Chest without Contrast IMPRESSION: Multiple new pulmonary nodules as above concerning for metastatic disease or wo rsening primary neoplastic disease. Reading Location: [facility]
--- NOTE | 2024-11-09 08:15 | CT_ITS ---
EXAM: CT Chest Without Intravenous Contrast CLINICAL INDICATION: LUNG NODULE TECHNIQUE: Axial computed tomography images of the chest without intravenous contrast. This CT exam was performed using one or more of the following dose reduction techniques: automated exposure control, adjustment of the mA and/or kV according to patient size, and/or use of iterative reconstruction technique. COMPARISON: No relevant prior studies available. FINDINGS: LUNGS AND PLEURAL SPACES: Stable 1.2 cm nodule of the anterior lateral right upper lobe. Lung emphysema/COPD. New 7 mm nodule of the anterior right upper lobe. New 4 mm nodule of the anterior lateral right upper lobe. New 4 mm subpleural nodule of the lingula. New 3 mm nodule posterior right lower lobe. No consolidation. No significant effusion. No pneumothorax. HEART: Unremarkable. No cardiomegaly. No significant pericardial effusion. No significant coronary artery calcifications. MEDIASTINUM: A few prominent mediastinal lymph nodes measuring up to 6 mm. BONES/JOINTS: Unremarkable. No acute fracture. SOFT TISSUES: Unremarkable. VASCULATURE: Scattered calcified atherosclerotic disease of aorta. No thoracic aortic aneurysm. LYMPH NODES: See above. CT/Chest without Contrast IMPRESSION: Multiple new pulmonary nodules as above concerning for metastatic disease or wo rsening primary neoplastic disease. Reading Location: [facility]
== END | disposition home or self-care (01) ==
LOC: CT 07:50
PROVIDERS: PCP Family Medicine; Referring Provider Internal Medicine Critical Care Medicine; Visit Provider Internal Medicine Critical Care Medicine
DX: R91.1 Solitary pulmonary nodule (principal)
CPT/HCPCS: 71250

== ENCOUNTER → 2024-11-15 | Outpatient (CLI) | payer MEDICARE, SELFPAY | END | disposition home or self-care (01) | LOC: LABSPEC 14:51 | PROVIDERS: PCP Family Medicine; Referring Provider Nurse Practitioner Acute Care; Visit Provider Nurse Practitioner Acute Care | DX: J47.9 Bronchiectasis, uncomplicated (principal) | CPT/HCPCS: 87070; 87077; 87186; 87205 ==

== ENCOUNTER → 2024-11-22 | Outpatient (CLI) | payer MEDICARE, SELFPAY ==
--- NOTE | 2024-11-22 12:15 | PET_ITS ---
PROCEDURE: PET/CT TUMOR BASE -THIGH INIT 11/22/2024 REASON FOR EXAM: Right and left lung pulmonary nodules. 69 y/o F with ABNORMAL FINDINGS IN LUNG FIELD TECHNIQUE: Following the intravenous administration of radionucleotide, image acquisition on a dedicated PET/CT unit was performed at one hour post injection. A preliminary CT study encompassing the Skull base, neck, chest, abdomen, pelvis, and proximal thighs was performed for purposes of attenuation correction and anatomic localization. The proximal thighs were also included. The patient's blood glucose level was 90 mg/dL (allowable range: 50-180 mg/dL). RADIOPHARMACEUTICAL: 14.18 mCi 18F-FDG (Fluorodeoxyglucose F18) IV was injected into he patient. RADIATION DOSE SUMMARY: Effective Dose: Approximately 7 mSv for a standard whole-body PET scan Organ Doses: Varies by organ, with higher doses typically to the bladder, liver, and brain COMPARISON: COMPARISON FROM CT, PET OR OTHER PERTINENT EXAMS: Chest CT 11/09/2024. FINDINGS: Physiologic uptake: There may be expected metabolic uptake within the brain, tongue and floor of the mouth and larynx/vocal cords, heart, gage (many normal individuals have hilar uptake in less than 3 nodes with mildly avid hilar nodes less than 2.7 SUV), liver and spleen, system, and GI tract and symmetric muscle uptake. FDG AVID AND NON-AVID LESIONS. Reported avid SUV values (g/mL*) are maximum SUV. NECK: There are no significant neck abnormalities. CHEST: Chest wall- There are no significant chest wall abnormalities. Axilla- There are no significant axillary abnormalities. Lung parenchyma- Moderate pulmonary emphysema is again seen. 2 anterior right middle lobe hypermetabolic nodules are noted, the more medial with SUV max 3.4, in the more lateral with SUV max of 1.9. A very medial right upper lobe small hypermetabolic nodule is seen at the level of the aortic arch, with SUV max 1.5. An anterior superior lingular hypermetabolic nodule is seen, with SUV max of 1.3. 2 lingular anterior hypermetabolic nodules are seen, the more medial with SUV max of 4.5, and the more lateral with SUV max of 5.1. A more central lingular small hypermetabolic nodule is seen, with SUV max of 1.4. A lateral peripheral left upper lobe small hypermetabolic nodule is seen, with SUV max 1.1 A prominent spiculated basilar left lower lobe hypermetabolic nodule is again seen, now with SUV max noted to be 5.4. A very small peripheral posterior left lower lobe hypermetabolic nodule, with SUV max of 0.6. It should be noted that for the smaller nodules, of which most of these are, the small size results in incorrectly low measurements for SUV max, based on the volume element size of the PET acquisition. Mediastinum- There are no significant hilar or mediastinal adenopathy. Pleura- There are no significant pleural abnormalities. ABDOMEN: Stomach- No significant abnormalities. Liver- No significant abnormalities. Spleen- No significant abnormalities. Pancrease- No significant abnormalities. Kidneys- No significant abnormalities. Bowel- Normal bowel activity. Spine- No significant abnormalities. PELVIS: Bowel- Normal physiologic bowel activity is identified. Masses- There are no pelvic masses. Bones- About the right glenohumeral joint, significant increased uptake is seen, most likely due to inflammation, less likely infection. With the use of bone window settings, there are no osteolytic or osteoblastic lesions. There are no FDG avid lesions within the visualized portion of the axial skeleton. PET/PET/CT Tumor Base -Thigh Init IMPRESSION: FDG avid- Numerous bilateral pulmonary hypermetabolic nodules are seen, at least 10 in nu mber,, likely representing a combination of primary malignancy and metastatic disease. The largest being a spiculated mass in the left lower lobe base. Other: Additional findings as noted. Please note the low-dose CT scan was performed to facilitate PET image reconstr uction and anatomic localization and does not replace a diagnostic CT. Any diagnostic CT requested and performed at the time of the PET will be reported separately. Reading Location: [place] [address]
== END | disposition home or self-care (01) ==
LOC: ONC 10:13
PROVIDERS: PCP Family Medicine; Referring Provider Nurse Practitioner Acute Care; Visit Provider Nurse Practitioner Acute Care
DX: R91.8 Other nonspecific abnormal finding of lung field (principal)
CPT/HCPCS: 78815; A9552

== ENCOUNTER → 2024-11-25 | Outpatient (CLI) | payer MEDICARE, SELFPAY ==
[2024-11-25 16:01] LABS: Prothrombin Time (Protime)PT. 14.7 SECONDS (11.7-14.9)
[2024-11-25 16:02] LABS: Partial Thromboplast Time 28.2 Seconds (24.1-36.2)
[2024-11-25 16:04] LABS: Platelet Count 520 K/mm3 (150-450)
== END | disposition home or self-care (01) ==
LOC: MTLAB 13:39
PROVIDERS: PCP Family Medicine; Referring Provider Nurse Practitioner Acute Care; Visit Provider Nurse Practitioner Acute Care
DX: R06.00 Dyspnea, unspecified (principal); I48.91 Unspecified atrial fibrillation
CPT/HCPCS: 36415; 85049; 85610; 85730

== ENCOUNTER → 2024-12-07 | Outpatient (CLI) | payer MEDICARE, SELFPAY | END | disposition home or self-care (01) | PROVIDERS: PCP Family Medicine; Referring Provider Otolaryngology; Visit Provider Otolaryngology | DX: J32.9 Chronic sinusitis, unspecified (principal) | CPT/HCPCS: 87070; 87077; 87205 ==

== ENCOUNTER 2024-12-16 07:45 | Outpatient (CLI) | payer MEDICARE, SELFPAY ==
[2024-12-09 09:30] VITALS: BP 78/50; PULSE 71; RESP 20; O2SAT 90
[2024-12-09 09:38] LABS: Hematocrit 29.2 % (37-47); Hemoglobin 9.1 g/dL (12.0-15.0); Immature Granulocytes Count 0.120 X10^3/uL (0.0-0.0); Mean Corp Hgb Conc 31.2 g/dL (32-36); Mean Corpuscular Volume 87.4 fL (81-99); Mean Platelet Vol. 9.3 fl (6.2-12.0); NRBC Flagged by Analyzer 0 % (0-5); Platelet Count 478 K/mm3 (150-450); RBC Distribution Width CV 13.5 % (11.6-14.6); RBC Distribution Width SD 43.1 fl (35.1-43.9); Red Blood Count 3.34 M/mm3 (4.2-5.4); White Blood Count 15.8 K/mm3 (4.4-11.0)
--- NOTE | 2024-12-09 09:45 | NURSING ---
this rn called [facility]oe [facility] office to inform pts bp 77/45, 78/50. bilat arms checked. bp low in both arms. pt denies feeling lightheaded or dizzy. pt denies wanting to go to the emergency room. roscoe aware procedure will be rescheduled. pt and pts aware scheduling will call her to reschedule.
[2024-12-09 09:53] LABS: Prothrombin Time (Protime)PT. 13.7 SECONDS (11.7-14.9)
[2024-12-09 09:54] LABS: Partial Thromboplast Time 30.4 Seconds (24.1-36.2)
[2024-12-16] VITALS (22 sets, daily range): BP systolic 93–124; BP diastolic 58–88; PULSE 84–93; RESP 16–20; TEMP 36.5; O2SAT 91–100; BMI 19.6
--- NOTE | 2024-12-16 07:46 | CT_ITS ---
EXAM: CT-guided core biopsy of a left lower lobe hypermetabolic spiculated nodule. CLINICAL HISTORY: Multiple hypermetabolic lung masses/nodules. COMPARISON: PET-CT of 11/22/[address] of 11/09/2024. TECHNIQUE: Conscious sedation was employed for this procedure, starting at 0940 hours and ending at 1025 hours. Intravenous administration of a total of 4 mg Versed and a total of 100 mcg fentanyl was administered. Following informed consent, and using standard sterile technique, a CT-guided core biopsy of a left lower lobe mass/nodule is performed, via a lateral approach. 2% lidocaine local anesthesia was followed by placement a 20 gauge 15 cm Compact Imaging core biopsy system. A total of 6 core samples were then obtained. Following the procedure, a small pneumothorax was identified on post imaging CT scan. CT/Biopsy/Inj or Needle Placement IMPRESSION: Successful core biopsy of a left lower lobe hypermetabolic mass/nodule, with la boratory results pending. Small pneumothorax seen following the procedure, with the additional follow up chest x-ray images planned. Reading Location: [place] [id number]
[2024-12-16] MEDS: 0.9% Normal Saline (250mL Bag) 250 ML 15 ML IV (09:30)
[2024-12-16] MEDS: Midazolam 2 MG/2 ML Syringe IV ×3 (09:40→10:07)
[2024-12-16] MEDS: fentaNYL 100 MCG/2 ML Ampul IV ×2 (09:57→10:07)
[2024-12-16] MEDS: Lidocaine 2% (20 ml mdv) 20 ML Vial INFILT (09:58)
--- NOTE | 2024-12-16 10:15 | ASPIGT_PTH ---
PATIENT: TAJ BLANK LOC: [place] U#:[id number] AGE/SX: 69/F ROOM: RE12/16/[address]: MELA Shelby : 1955 BED: DIS: 12/16/2024 SPEC #: [id number] RECD: 12/16/24 10:30 STATUS: MADHU REQ #: [id number] DAYDAY: 12/16/24 10:[address]: Maricarmen Acevedo NP DEPT: SURGICAL PATHOLOGY RECD BY: Will Serrano ENTERED: 12/16/24 11:56 SP TYPE: ASP RAD OTHR DR: Dr. Chrystal Michel DO Tissues: A - Lung, NOS Procedures: FNA Specimen Adequacy Special Stain Group II Surgery Specimen Level IV AFB Stain (control) GMS Stain (control) Imprint (control) HEADER OPERATION: CT guided lung biopsy PRE-OP DIAGNOSIS: Left lung mass TISSUE SUBMITTED: A- Lung - 20 gauge x 5 core biopsy MICROSCOPIC DIAGNOSIS A. Left lung, CT-guided needle biopsy: * Caseating granulomatous inflammation * AFB and GMS fungal stains are pending COMMENT The specimen is evaluated at the time of biopsy by Dr. Pinto. Immediate Evaluation = 1. Rare atypical cells in background of inflammatory cells with occasional giant cells. 2. Adequate - possible vague granuloma. MICROSCOPIC DESCRIPTION Slides are reviewed. GROSS DESCRIPTION A. Received in formalin labeled with the patient's name and date of are multiple benson tissue cores, 0.2 cm to 0.6 cm in length by <0.1 cm in diameter. Touch preparations are made. Entirely submitted in 2 cassettes. [place] 12/16/2024 CPT:93520,02567v5 ADDENDUM ADDENDUM ADDENDUM 01/02/2025 10:34 ADDENDUM 01/02/2025 10:34 ADDENDUM 01/02/2025 10:34 ADDENDUM 01/02/2025 10:34 ADDENDUM 01/02/2025 10:34 An AFB stain is negative. 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
--- NOTE | 2024-12-16 10:30 | RAD_ITS ---
EXAM: AP portable upright inspiratory and expiratory chest CLINICAL HISTORY: Immediate post left lower lobe CT-guided core biopsy. COMPARISON: Chest x-ray of 05/25/2024 TECHNIQUE: AP portable upright inspiratory and expiratory chest RAD/Chest Insp/Exp 2 View IMPRESSION: A small left pneumothorax is now seen. Chronic/emphysematous changes of the lungs again noted. Abutting the minor fissure is seen the medial right upper lobe area of airspace disease, concerning for pneumonitis or atelectasis. No significant pleural fluid collection is noted. The cardiomediastinal silhouette is stable, without evidence of cardiomegaly. Generalized osteopenia is seen. Old right rib fractures are noted. Partially visualized prior thoracolumbar fernando rgery again seen. Reading Location: [place] [id number]
--- NOTE | 2024-12-16 11:35 | RAD_ITS ---
EXAM: AP portable upright inspiratory and expiratory chest CLINICAL HISTORY: 1 hour following left lower lobe CT-guided lung core biopsy. COMPARISON: Chest x-ray of approximately 1 hour prior. TECHNIQUE: AP portable upright inspiratory and expiratory chest RAD/Chest Insp/Exp 2 View IMPRESSION: A small left pneumothorax appears unchanged in size from the prior study of 1 h our earlier. The remainder of the examination is unchanged. No pleural effusion is noted. The cardiomediastinal silhouette is stable, without evidence of cardiomegaly. Reading Location: [place] [address]
--- NOTE | 2024-12-16 13:27 | RAD_ITS ---
EXAM: AP portable upright inspiratory and expiratory chest CLINICAL HISTORY: 3 hours following left lower lobe is CT-guided core biopsy. COMPARISON: Prior chest x-ray images of the same day. TECHNIQUE: AP portable upright inspiratory and expiratory chest RAD/Chest Insp/Exp 2 View IMPRESSION: Again, stable appearance of the small left pneumothorax is seen on inspiratory and expiratory images, compared with the 2 prior chest x-ray examinations of earlier the same day. No new or worsened process is seen. No pleural effusion is evident. Reading Location: [place] [address]
== END 2024-12-16 23:59 | disposition home or self-care (01) ==
PROVIDERS: PCP Family Medicine; Referring Provider Nurse Practitioner Acute Care; Visit Provider Nurse Practitioner Acute Care
DX: Z01.818 Encounter for other preprocedural examination (principal); J84.10 Pulmonary fibrosis, unspecified; I48.91 Unspecified atrial fibrillation; R91.8 Other nonspecific abnormal finding of lung field; J95.811 Postprocedural pneumothorax
CPT/HCPCS: 32408; 36415; 71046; 77012; 85025; 85610; 85730; 88172; 88305; 88313; 99156; 99157

== ENCOUNTER 2025-02-03 09:15 | Outpatient (CLI) | payer MEDICARE, SELFPAY ==
[2025-02-03 09:21] VITALS: BP 121/68; PULSE 75; RESP 16; TEMP 35.7; O2SAT 99; BMI 17.7
[2025-02-03] MEDS: DENOSUMAB 60 MG/ML SC (09:25)
== END 2025-02-03 23:59 | disposition home or self-care (01) ==
PROVIDERS: PCP Family Medicine; Referring Provider Family Medicine; Visit Provider Family Medicine
DX: M81.0 Age-related osteoporosis without current pathological fracture (principal)
CPT/HCPCS: 96372; J0897

== ENCOUNTER → 2025-02-08 | Outpatient (CLI) | payer MEDICARE, SELFPAY | END | disposition home or self-care (01) | LOC: LAB 15:18 | PROVIDERS: PCP Family Medicine; Referring Provider Otolaryngology; Visit Provider Otolaryngology | DX: J32.9 Chronic sinusitis, unspecified (principal) | CPT/HCPCS: 87070; 87205 ==

== ENCOUNTER → 2025-02-14 | Outpatient (CLI) | payer MEDICARE, SELFPAY | END | disposition home or self-care (01) | LOC: LABSPEC 15:59 → MTLAB 18:28 | PROVIDERS: PCP Family Medicine; Referring Provider Internal Medicine Infectious Disease; Visit Provider Internal Medicine Infectious Disease | DX: R91.8 Other nonspecific abnormal finding of lung field (principal); J47.9 Bronchiectasis, uncomplicated; J43.9 Emphysema, unspecified; B39.1 Chronic pulmonary histoplasmosis capsulati; F17.200 Nicotine dependence, unspecified, uncomplicated | CPT/HCPCS: 36415 ==

== ENCOUNTER 2025-03-08 07:54 | Inpatient (IN) | payer MEDICARE, SELFPAY ==
[2025-03-08] VITALS (33 sets, daily range): BP systolic 75–134; BP diastolic 36–103; PULSE 70–98; RESP 11–21; TEMP 36.4–36.9; O2SAT 79–100; BMI 20.7; BMI 20.9
--- NOTE | 2025-03-08 08:07 | EKG12_ITS ---
Test Reason : Blood Pressure : */* mmHG Vent. Rate : 72 BPM Atrial Rate : 72 BPM P-R Int : 164 ms QRS Dur : 92 ms QT Int : 452 ms P-R-T Axes : 74 75 81 degrees QTcB Int : 494 ms Normal sinus rhythm Normal ECG Confirmed by ITZ HIRSCH, CHRISTIAN ([id number]), production editor DAKOTAH DELVALLE ([id number]) on 03/13/2025 8:23:01 AM Referred By: Confirmed By: CHRISTIAN MOBLEY MD
--- NOTE | 2025-03-08 08:18 | EX.ED.DYSGE1 ---
HPI History of Present Illness Chief Complaint: Nausea/Vomiting/Diarrhea Narrative Narrative: Patient is a 69-year-old female with past medical history of CVA, asthma, PTSD, GI bleed, fibromyalgia, TIA, RAUL who presented to the emergency department the chief complaint of nausea vomiting diarrhea and abdominal pain. She states that she just does not feel well overall. When inquiring about black stools she states that she has had black stools starting last night she states that she is not on any blood thinning medications. PFSH PFS Medical History Stroke/cerebrovascular accident Confusion Asthma exacerbation in COPD Respiratory syncytial virus (RSV) Microcytic anemia RSV infection PTSD (post-traumatic stress disorder) Hyperthyroidism GI bleed Former smoker CPAP (continuous positive airway pressure) dependence On home oxygen therapy Myocardial infarct Congestive heart failure (CHF) Migraines Fall Contusion of nose Periorbital contusion of right eye Contusion of multiple fingers Chronic hypoxic respiratory failure Contusion of scalp Pneumonia Acute and chronic respiratory failure with hypoxia Normocytic anemia Acute exacerbation of chronic obstructive pulmonary disease (COPD) Fibromyalgia Chronic respiratory failure with hypoxia RAUL (obstructive sleep apnea) Incisional hernia TIA (transient ischemic attack) Osteoporosis Osteoarthritis Thyroid disorder Diverticulitis History of heart attack Sleep apnea History of pneumonia COPD (chronic obstructive pulmonary disease) History of bronchitis Asthma HTN (hypertension) Depression Anxiety Nausea and vomiting GERD (gastroesophageal reflux disease) Heart disease spinal stimulator Spinal stenosis Chronic back pain Hypothyroidism Home Medications ?Medication ?Instructions ?Recorded ?Last Taken ?Type atorvastatin 80 mg tablet 80 mg PO QHS cholesterol 06/01/13 05/25/14 History 80 MG clopidogrel 75 mg tablet 75 mg PO DAILY anti platelet 06/01/13 11/18/23 History Held on 12/09/24. Instructions: MD Ordered duloxetine 60 mg capsule,delayed 60 mg PO BID DEPRESSION 06/19/20 Unknown History release furosemide 40 mg tablet 60 mg PO DAILY water pill 08/23/22 Unknown History liothyronine 5 mcg tablet 10 mcg PO DAILY HYPOTHYROIDISM 08/23/22 Unknown History pantoprazole 40 mg tablet,delayed 40 mg PO BID ACID REFLEX 30 days 05/06/23 Unknown Rx release #60 tabs metoprolol tartrate 25 mg tablet 25 mg PO Q12H blood pressure 10/09/23 Unknown History acetaminophen 500 mg tablet 500 mg PO Q6H PRN pain 11/05/23 Unknown History buspirone 10 mg tablet 10 mg PO BID ANXIETY 02/09/24 Unknown History diclofenac sodium 75 mg 75 mg PO BID see phyisican 02/09/24 Unknown History tablet,delayed release ipratropium 0.5 mg-albuterol 3 mg 3 ml inhalation .Q4-6H PRN 03/11/24 Unknown History (2.5 mg base)/3 mL nebulization shortness of breath or wheezing soln levothyroxine 50 mcg tablet 50 mcg PO SUSA thyroid 03/11/24 Unknown History levothyroxine 75 mcg tablet 75 mcg PO MOTUWETHFR THYROID 03/11/24 Unknown History mometasone-formoterol HFA 200 2 puff inhalation BID COPD 04/26/24 Unknown History mcg-5 mcg/actuation aerosol inhaler (Dulera) mirtazapine 15 mg tablet 15 mg PO QHS sleep #30 tabs 05/17/24 Unknown Rx cholecalciferol (vitamin D3) 1,250 1,250 mcg PO QWEEK 05/22/24 Unknown History mcg (50,000 unit) capsule baclofen 10 mg tablet 10 mg PO BID 05/25/24 Unknown History midodrine 5 mg tablet 5 mg PO TID 05/25/24 Unknown History Held on 12/09/24. Instructions: Order Changed hydroxyzine HCl 50 mg tablet 50 mg PO QHS anxiety 05/26/24 Unknown History albuterol sulfate 90 mcg/actuation 2 puff inhalation Q4H PRN COPD #1 06/13/24 Unknown Rx aerosol inhaler device furosemide 20 mg tablet 20 mg PO QDAY 11/15/24 Unknown History linaclotide 72 mcg capsule 72 mcg PO DAILY PRN diarrhea 11/15/24 Unknown History (Linzess) lorazepam 1 mg tablet 1 mg PO TID 11/15/24 Unknown History mupirocin 2 % topical ointment topical TID 11/15/24 Unknown History quetiapine 50 mg tablet 50 mg PO QHS 11/15/24 Unknown History tiotropium bromide 2.5 2 inh inhalation DAILY LUNGS #3 ea 11/15/24 Unknown Rx mcg/actuation mist for inhalation (Spiriva Respimat) topiramate 50 mg tablet 50 mg PO QDAY 11/15/24 Unknown History cyclobenzaprine 10 mg tablet 10 mg PO QHS 11/25/24 Unknown History levofloxacin 750 mg tablet 750 mg PO QDAY 11/25/24 Unknown History montelukast 10 mg tablet 10 mg PO QPM allergies #90 tabs 01/30/25 Unknown Rx Allergy/AdvReac Type Severity Reaction Status Date / Time cefaclor (From Ceclor) Allergy Itching Verified 01/05/25 10:41 clarithromycin Allergy Hives Verified 01/05/25 10:41 doxycycline Allergy Itching Verified 01/05/25 10:41 Penicillins Allergy Hives Verified 01/05/25 10:41 Sulfa (Sulfonamide Allergy Hives Verified 01/05/25 10:41 Antibiotics) zolpidem (From Ambien) AdvReac Unknown mental Verified 01/05/25 10:41 issues Family History Father Asthma Heart disease Grandmother Breast cancer Diabetes Mother Heart disease COPD (chronic obstructive pulmonary disease) Other Cancer Surgical History Hx of BKA History of appendectomy History of incisional hernia repair History of incisional hernia repair (~12/20/18) Hx of cholecystectomy History of esophagogastroduodenoscopy (EGD) (~07/2018) Previous back surgery S/P hysterectomy S/P carpal tunnel release S/P knee surgery S/P correction of deviated nasal septum Status post thyroidectomy H/O heart artery stent Status post amputation of right foot Social History household members: spouse housing: house Smoking Status: Light Smoker (<10/day) Tobacco: How many years used: 25 second hand exposure: Yes alcohol intake: never substance use type: does not use caffeine: Yes what type of physical activity do you participate in: none frequency: does not exercise ROS ROS ED ROS Narrative Constitutional: Denies any fevers, chills, headaches Cardiovascular: Denies chest pain Respiratory: Denies coughing wheezing shortness of breath Abdomen: Complains of abdominal pain and diarrhea with black stools as noted above : Denies urinary symptoms Neurological: Denies any numbness, weakness, tingling Musculoskeletal: Denies back pain Skin: Denies any rashes or lesions EXAM Physical Exam Narrative Exam Narrative: General: Patient is very pale on exam, resting comfortably did not appear to be in acute distress Head: Atraumatic, normocephalic Eyes: PERRL bilaterally, EOMI bilateral, no conjunctival injection noted Neck: Soft, supple, trachea midline Cardiovascular: Regular rate and rhythm Respiratory: Clear to auscultation bilaterally Abdomen: Soft, nondistended, diffuse tenderness palpation no rebound or guarding exam Extremities: +5/5 strength noted in the bilateral, extremities Neurological: Patient follow commands that she was at [facility] years 2024 Skin: Warm, dry, tact no rashes or lesions noted Const Vital Signs: 03/08/25 07:55 03/08/25 09:06 03/08/25 09:54 Temperature 97.6 F L 97.6 F L Temperature Source Oral Oral Pulse Rate 75 77 79 Respiratory Rate 16 14 20 H Blood Pressure 100/72 104/57 L 94/54 L Blood Pressure Mean 81 72 67 Blood Pressure Source Blood Pressure Position Pulse Ox 98 98 98 Oxygen Delivery Method Room Air Room Air Room Air 03/08/25 10:00 03/08/25 10:37 03/08/25 10:52 Temperature 97.8 F 98.2 F 97.9 F Temperature Source Oral Oral Oral Pulse Rate 79 81 79 Respiratory Rate 20 H 16 20 H Blood Pressure 98/68 82/49 L 75/48 L Blood Pressure Mean 78 60 57 Blood Pressure Source Monitor Blood Pressure Position Supine Pulse Ox 98 96 95 Oxygen Delivery Method Room Air Room Air Room Air 03/08/25 10:58 03/08/25 10:58 03/08/25 11:07 Temperature 97.9 F 98.4 F Temperature Source Oral Oral Pulse Rate 78 78 Respiratory Rate 16 11 L Blood Pressure 75/48 L 75/48 L 103/58 L Blood Pressure Mean 57 57 73 Blood Pressure Source Monitor Blood Pressure Position Pulse Ox 95 94 Oxygen Delivery Method Room Air 03/08/25 11:13 03/08/25 11:26 Temperature 98.5 F Temperature Source Oral Pulse Rate 78 Respiratory Rate Blood Pressure 86/52 L 103/58 L Blood Pressure Mean 63 73 Blood Pressure Source Blood Pressure Position Pulse Ox 96 Oxygen Delivery Method MDM MDM MDM Narrative Medical decision making narrative: Patient is a 69-year-old female who presents to the emergency department the chief complaint of abdominal pain and dark tarry stools. On the differential diagnosis includes but not limited to upper GI bleed, bowel obstruction, AAA. Once workup is obtained and reviewed she will be reevaluated. Rectal exam was fecal occult positive therefore she was ordered Protonix IV bolus followed by drip. I reached out and updated/notified on-call transitions manager rn Dr. Diggs who is aware the patient. Patient CBC reviewed and showed a leukocytosis of 22,000, hemoglobin is noted the low at 5.8, plate count 5-6 6. Patient INR normal 1.1, PT of 14.2. Patient's sodium normal at 34, potassium normal 4.3, creatinine 0.94. Patient's AST and ALT are 14 and 8 respectively, lipase normal at 10, urinalysis reviewed and showed no evidence of infection. Patient CT abdomen pelvis reviewed showed atherosclerotic plaque formation of the aorta and major visceral branches. Sigmoid diverticulosis no evidence of GI bleed. Patient's EKG reviewed showed sinus rhythm rate 72 bpm PA interval 164. At this point in time we will discuss case with hospitalist for admission. Discussed case with hospitalist Dr. Alba who states that show excepted patient to the intensive care unit. Second unit of blood will be hung at the same time as the first as her pressure has become hypotensive although there is no identifiable source infection therefore do believe that this is secondary to her blood loss secondary to GI bleed. Hospitalist states that they will evaluate the patient and decide if antibiotics are warranted or not. Updated patient and family at bedside they are agreeable this plan all questions answered. Critical care time 41 minutes Lab Data Labs: Laboratory Results - last 24 hr 03/08/25 03/08/25 03/08/25 08:05 08:48 08:50 WBC 22.3 H RBC 2.19 L Hgb 5.8 L* Hct 18.4 L MCV 84.0 MCH 26.5 L MCHC 31.5 L RDW Std Deviation 50.0 H RDW Coeff of [place] 16.3 H Plt Count 566 H MPV 8.9 Immature Gran % (Auto) 2.500 H Neut % (Auto) 75.7 H Lymph % (Auto) 14.5 L [place] % (Auto) 6.3 Eos % (Auto) 0.8 Baso % (Auto) 0.2 Absolute Neuts (auto) 16.9 H Absolute Lymphs (auto) 3.22 Nucleated RBC % 0 PT 14.2 INR 1.1 APTT 28.3 Sodium 134 Potassium 4.3 Chloride 105 Carbon Dioxide 17.6 L Anion Gap 12 BUN 38 H Creatinine 0.94 Estim Creat Clear Calc 40.13 L Est GFR (MDRD) Non-Af 65 BUN/Creatinine Ratio 40.7 H Glucose 97 Calcium 7.1 L Total Bilirubin 0.17 AST 14 ALT 8 Alkaline Phosphatase 72 Total Protein 5.3 L Albumin 2.4 L Globulin 3.0 Albumin/Globulin Ratio 0.8 L Lipase 10 L Urine Color Urine Clarity Urine pH Ur Specific [place] Urine Protein Urine Glucose (UA) Urine Ketones Urine Occult Blood Urine Nitrite Urine Bilirubin Urine Urobilinogen Ur Leukocyte Esterase Urine RBC Urine WBC Ur Squamous Epith Cells Urine Bacteria Hyaline Casts Urine Mucus Blood Type A NEGATIVE Antibody Screen NEGATIVE Crossmatch See Detail 03/08/25 09:45 WBC RBC Hgb Hct MCV MCH MCHC RDW Std Deviation RDW Coeff of [place] Plt Count MPV Immature Gran % (Auto) Neut % (Auto) Lymph % (Auto) [place] % (Auto) Eos % (Auto) Baso % (Auto) Absolute Neuts (auto) Absolute Lymphs (auto) Nucleated RBC % PT INR APTT Sodium Potassium Chloride Carbon Dioxide Anion Gap BUN Creatinine Estim Creat Clear Calc Est GFR (MDRD) Non-Af BUN/Creatinine Ratio Glucose Calcium Total Bilirubin AST ALT Alkaline Phosphatase Total Protein Albumin Globulin Albumin/Globulin Ratio Lipase Urine Color Yellow Urine Clarity Clear Urine pH 5.0 Ur Specific [place] 1.015 Urine Protein 15 H Urine Glucose (UA) Normal Urine Ketones Negative Urine Occult Blood Negative Urine Nitrite Negative Urine Bilirubin Negative Urine Urobilinogen Normal Ur Leukocyte Esterase 25 H Urine RBC 0 SEEN Urine WBC 0-5 SEEN Ur Squamous Epith Cells 0-5 SEEN Urine Bacteria 0 SEEN Hyaline Casts 25-50 SEEN Urine Mucus 0 SEEN Blood Type Antibody Screen Crossmatch Radiography Diagnostic Testing: Clinical Impression(s) from Imaging Studies Abdomen/Pelvis CTA 03/08/25 09:38 IMPRESSION: Atherosclerotic plaque formation of the aorta and the major visceral branches. Sigmoid diverticulosis. No evidence of GI bleed. Reading Location: [facility] Discharge Plan Dx/Rx/DC Orders Clinical Impression: Acute upper GI bleed, HTN (hypertension), Sleep apnea, TIA (transient ischemic attack) Disposition Disposition: [facility] D/C Safety Score for UGIB Assessment [place] Bleeding Score (GBS): Stratifies upper GI bleeding patients who are low-risk and candidates for outpatient management. Hemoglobin, BUN, Recent Vital Signs: Hgb 5.8 g/dL (12.0-15.0) L* 03/08/25 08:05 BUN 38 mg/dL (4-19) H 03/08/25 08:05 Pulse Rate 78 Blood Pressure 103/58 Score Interpretation: Score of 0: A GBS of 0 is a ?Low Risk? GI bleed, and is highly sensitive (99.6% in a 2007 retrospective study) for predicting which patients did not require any ?medical intervention?: blood transfusion, endoscopy, or surgery. This was confirmed in a [address] [facility] study where patients with a score of 0 were actually discharged and had no GI bleeding mortality at 6 month followup Score above 0: A GBS greater than zero suggests a ?High Risk? GI bleed that is likely to require ?medical intervention?: transfusion, endoscopy, or surgery. A higher GBS also correlated with a higher likelihood of needing intervention Scores >/= 6 are associated with >50% risk of needing intervention D/C Safety Score for LGIB Assessment Assessment Tool: Readmission and adverse event risk in patients with acute lower GI bleeding. Hemoglobin and Recent Vital Signs: Hgb 5.8 g/dL (12.0-15.0) L* 03/08/25 08:05 Pulse Rate 78 03/08/25 11:26 Blood Pressure 103/58 03/08/25 11:26 Score Interpretation: Probability Percentage of safe discharge (absence of rebleeding, blood transfusion, therapeutic intervention, 28 day readmission, or ) Score of 8 or below: Consider discharge, with appropriate precautions. Score of 9 or above: Discharge NOT recommended. Consider admission with further workup and resuscitation as necessary.
[2025-03-08 08:20] LABS: Hematocrit 18.4 % (37-47); Immature Granulocytes Count 0.560 X10^3/uL (0.0-0.0); Mean Corp Hgb Conc 31.5 g/dL (32-36); Mean Corpuscular Volume 84.0 fL (81-99); Mean Platelet Vol. 8.9 fl (6.2-12.0); NRBC Flagged by Analyzer 0 % (0-5); POSITIVE COUNT YES; Platelet Count 566 K/mm3 (150-450); RBC Distribution Width CV 16.3 % (11.6-14.6); RBC Distribution Width SD 50.0 fl (35.1-43.9); Red Blood Count 2.19 M/mm3 (4.2-5.4); White Blood Count 22.3 K/mm3 (4.4-11.0)
[2025-03-08] MEDS: 0.9% Normal Saline (1000mL) 1,000 ML 999 ML IV (08:20)
[2025-03-08 08:24] LABS: Hemoglobin 5.8 g/dL (12.0-15.0)
[2025-03-08 08:43] LABS: AST(SGOT) 14 U/L (<=31); Alanine Aminotransfer ALT/SGPT 8 U/L (<=34); Albumin, Serum 2.4 g/dL (3.4-4.8); Alkaline Phosphatase 72 U/L (35-104); Anion Gap 12 (5-15); BUN 38 mg/dL (4-19); BUN/Creat Ratio 40.7 RATIO (10-20); Calcium,Total 7.1 mg/dL (7.6-11.0); Carbon Dioxide 17.6 mmol/L (21.0-32.0); Chloride 105 mmol/L (98-108); Estimated Creatinine Clearance 40.13 ml/min (50-250); Globulin 3.0 g/dL (2.2-4.2); Glucose 97 mg/dL (70-99); Lipase 10 U/L (13-75); Potassium 4.3 mmol/L (3.3-5.1)
[2025-03-08] MEDS: Pantoprazole Sodium 80 MG in 0.9% Normal Saline (100mL Bag) 80 ML 10 MG CONT INF ×2 (08:49→18:28)
[2025-03-08] MEDS: Pantoprazole Sodium 80 MG in 0.9% Normal Saline (50mL Bag) 15 ML 420 MG IV BOLUS (08:49)
[2025-03-08 09:13] LABS: Prothrombin Time (Protime)PT. 14.2 SECONDS (11.7-14.9)
[2025-03-08 09:14] LABS: Partial Thromboplast Time 28.3 Seconds (24.1-36.2)
--- NOTE | 2025-03-08 09:38 | CT_ITS ---
PROCEDURE: CTA ABD/PELVIS W/WO CONTRAST 03/08/2025 REASON FOR EXAM: GI BLEED History of diverticulitis. TECHNIQUE: Procedure Code: [id number] Modality: CT Procedure: CTA ABD/PELVIS W/WO CONTRAST Multiplanar Sagittal and Coronal images were obtained. 3D and or MIPS post processing was performed CONTRAST: Isovue 370 VOLUME: 100 mL One or more dose reduction techniques were used (e.g., Automated exposure control, adjustment of the mA and/or kV according to patient size, use of iterative reconstruction technique). RADIATION DOSE SUMMARY: CTDlvol: 14.3 mGy DLP: 351.75 mGycm COMPARISON: May 04, 2023. FINDINGS: Aorta: Moderate mixed calcified and soft plaque. No abdominal aortic aneurysm. Iliac Arteries: Scattered atherosclerotic plaque. No aneurysm or significant stenosis. Celiac: Mild mixed calcified and soft plaque identified. SMA: Mild mixed calcified and soft plaque identified. DONALD : Not visualized Right Renal: Mild mixed calcified and soft plaque identified. Left Renal: Normal. Extravascular Findings: Mild degree of intrahepatic biliary ductal dilatation most likely secondary to the post cholecystectomy state. The spleen is unremarkable. Diffuse pancreatic atrophy. No evidence of hydronephrosis. Fecal material and fluid seen in the colon more prominent in the right hemicolon. Sigmoid diverticulosis with no radiographic evidence of diverticulitis. CT/CTA Abd/Pelvis W/WO Contrast IMPRESSION: Atherosclerotic plaque formation of the aorta and the major visceral branches. Sigmoid diverticulosis. No evidence of GI bleed. Reading Location: [place] [id number]
[2025-03-08 10:09] LABS: Color, Urine Yellow (Yellow); Glucose, Dipstick Normal (Normal); Ketone-Dipstick Negative (Negative); Leukocyte Esterase-Dipstick 25 /ul (Negative); Mucous, Urine 0 SEEN /hpf (<or=2+); Nitrite-Dipstick Negative (Negative); Occult Blood-Urine Negative /ul (Negative); Protein-Dipstick 15 mg/dl (Negative); Red Blood Cells-Urine 0 SEEN /hpf (0-5); Specific Gravity, Urine 1.015 (1.002-1.030); Urine Bilirubin Dipstick Negative (Negative)
[2025-03-08 10:20] LABS: Squamous Epithelial Cells - UA 0-5 SEEN /hpf (5-10)
--- NOTE | 2025-03-08 11:03 | NURSING ---
PROVIDER NOTIFIED OF SEPSIS ALERT
--- NOTE | 2025-03-08 11:07 | ED.RN ---
per dr. vides, run blood at 999ml/hr
--- NOTE | 2025-03-08 11:17 | HP.PCM.HOS_ITS ---
HPI - General General Date of Admission: 03/08/25 Date of Service: 03/08/25 HPI Narrative TAJ BLANK, is a 69 F with a PMH as outlined who was admitted via the ED on 03/08/2025 with a complaint of nausea and diarrhea as well as weakness and abdominal pain. Her symptoms started one day prior to admission. She said she had multiple episodes of diarrhea. The diarrhea was initially black and then became bloody. She denied any vomiting. She denied any fever or chills, shortness of breath, dizziness or lightheadedness or any other complaints. Review of systems otherwise negative. Vitals in the ED were temperature of 97.9 Fahrenheit, blood pressure of 86/52, respiratory rate of 16 and show saturating at 95% on room air. CBC showed hemoglobin of 5.8 with WBC of 22.3 and platelets of 566. INR is 1.1. Chemistry shows sodium of 134 potassium of 4.3 and bicarb of 17.6. Creatinine is 0.94. Urinalysis shows no evidence of UTI. CT abdomen and pelvis showed atherosclerotic plaque formation of the aorta and major visceral branches and sigmoid diverticulosis but no evidence of GI bleed. She has been admitted to be managed for acute on chronic anemia likely due to GI bleed in light of her complaints of dark stools. [facility] Medical History Stroke/cerebrovascular accident Confusion Asthma exacerbation in COPD Respiratory syncytial virus (RSV) Microcytic anemia RSV infection PTSD (post-traumatic stress disorder) Hyperthyroidism GI bleed Former smoker CPAP (continuous positive airway pressure) dependence On home oxygen therapy Myocardial infarct Congestive heart failure (CHF) Migraines Fall Contusion of nose Periorbital contusion of right eye Contusion of multiple fingers Chronic hypoxic respiratory failure Contusion of scalp Pneumonia Acute and chronic respiratory failure with hypoxia Normocytic anemia Acute exacerbation of chronic obstructive pulmonary disease (COPD) Fibromyalgia Chronic respiratory failure with hypoxia RAUL (obstructive sleep apnea) Incisional hernia TIA (transient ischemic attack) Osteoporosis Osteoarthritis Thyroid disorder Diverticulitis History of heart attack Sleep apnea History of pneumonia COPD (chronic obstructive pulmonary disease) History of bronchitis Asthma HTN (hypertension) Depression Anxiety Nausea and vomiting GERD (gastroesophageal reflux disease) Heart disease spinal stimulator Spinal stenosis Chronic back pain Hypothyroidism Home Medications ?Medication ?Instructions ?Recorded ?Last Taken ?Type atorvastatin 80 mg tablet 80 mg PO QHS cholesterol 09/0705/25/14 History 80 MG clopidogrel 75 mg tablet 75 mg PO DAILY anti platelet 06/01/13 11/18/23 History duloxetine 60 mg capsule,delayed 60 mg PO BID DEPRESSI ON 06/19/20 Unknown History release furosemide 40 mg tablet 60 mg PO DAILY water pill Unknown History liothyronine 5 mcg tablet 10 mcg PO DAILY HYPOTHYROIDI SM 08/23/22 Unknown History pantoprazole 40 mg tablet,delayed 40 mg PO BID ACID RE FLEX 30 days 05/06/23 Unknown Rx release #60 tabs metoprolol tartrate 25 mg tablet 25 mg PO Q12H blood p ressure 10/09/23 Unknown History acetaminophen 500 mg tablet 500 mg PO Q6H PRN pain 03/20 Unknown History buspirone 10 mg tablet 10 mg PO BID ANXIETY 4 Unknown History diclofenac sodium 75 mg 75 mg PO BID see phyisican 1 Unknown History tablet,delayed release ipratropium 0.5 mg-albuterol 3 mg 3 ml inhalation .Q4- 6H PRN 03/11/24 Unknown History (2.5 mg base)/3 mL nebulization shortness of breath or wheezing soln levothyroxine 50 mcg tablet 50 mcg PO SUSA thyroid Unknown History levothyroxine 75 mcg tablet 75 mcg PO MOTUWETHFR THYRO ID 03/11/24 Unknown History mometasone-formoterol HFA 200 2 puff inhalation BID CO PD 04/26/24 Unknown History mcg-5 mcg/actuation aerosol inhaler (Dulera) cholecalciferol (vitamin D3) 1,250 1,250 mcg PO QWEEK bones 05/22/24 Unknown History mcg (50,000 unit) capsule hydroxyzine HCl 50 mg tablet 50 mg PO QHS anxiety 04/29 Unknown History albuterol sulfate 90 mcg/actuation 2 puff inhalation Q 4H PRN COPD #1 06/13/24 Unknown Rx aerosol inhaler device lorazepam 1 mg tablet 1 mg PO TID anxiety 11/15/24 Unknown History mupirocin 2 % topical ointment 1 applic topical BID in fection 11/15/24 Unknown History quetiapine 50 mg tablet 50 mg PO QHS 11/15/24 Unknow n History tiotropium bromide 2.5 2 inh inhalation DAILY LUNGS #3 ea 11/15/24 Unknown Rx mcg/actuation mist for inhalation (Spiriva Respimat) topiramate 50 mg tablet 50 mg PO QDAY 11/15/24 Unkno wn History cyclobenzaprine 10 mg tablet 10 mg PO QHS 11/25/24 Unk nown History montelukast 10 mg tablet 10 mg PO QPM allergies #90 t abs 01/30/25 Unknown Rx OXYGEN - Supplemental ([facility] Pulmonary Information 03/08 Unknown History INFORMATIONAL USE ONLY) Allergy/AdvReac Type Severity Reaction Status Date / Time cefaclor (From [facility]) Allergy Itching Verified 01/05/25 10:41 clarithromycin Allergy Hives Verified 01/05/25 10:41 doxycycline Allergy Itching Verified 01/05/25 10:41 Penicillins Allergy Hives Verified 01/05/25 10:41 Sulfa (Sulfonamide Allergy Hives Verified 01/05/25 10:41 Antibiotics) zolpidem (From [facility]) AdvReac Unknown mental Verified 01/05/25 10:41 issues Family History Father Asthma Heart disease Grandmother Breast cancer Diabetes Mother Heart disease COPD (chronic obstructive pulmonary disease) Other Cancer Surgical History Hx of BKA History of appendectomy History of incisional hernia repair History of incisional hernia repair (~12/20/18) Hx of cholecystectomy History of esophagogastroduodenoscopy (EGD) (~07/2018) Previous back surgery S/P hysterectomy S/P carpal tunnel release S/P knee surgery S/P correction of deviated nasal septum Status post thyroidectomy H/O heart artery stent Status post amputation of right foot Social History (Updated 03/08/25 @ 12:51 by Keily Pereira) household members: spouse housing: house Smoking Status: Light Smoker (<10/day) Tobacco: How many years used: 25 second hand exposure: Yes alcohol intake: never substance use type: does not use caffeine: Yes what type of physical activity do you participate in: none frequency: does not exercise ROS Constitutional Constitutional: Reports fatigue, malaise and weakness; Denies anorexia, chills or fever(s) Eyes Eyes: Denies change in vision ENT HEENT: Denies dysphagia, headache(s) or sore throat Cardiovascular Cardiovascular: Denies chest pain, dyspnea on exertion, edema, lightheadedness, orthopnea, palpitations, rapid heart rate or syncope Respiratory/Chest Respiratory/Chest: Denies cough, dyspnea, shortness of breath at rest or shortness of breath with exertion Gastrointestinal Gastrointestinal: Reports abdominal pain, diarrhea, melena, nausea and vomiting; Denies coffee ground emesis, dyspepsia, hematemesis, hematochezia or loose stools Genitourinary Genitourinary: Denies burning urination or dysuria Neurologic Neurologic: Denies confusion, dizziness, focal weakness, headache(s) or numbness Psychiatric Psychiatric: Denies anxiety Vital Signs Vital Signs Vital Signs: 03/08/25 07:55 03/08/25 09:06 03/08/25 09:54 Temperature 97.6 F L 97.6 F L Temperature Source Oral Oral Pulse Rate 75 77 79 Respiratory Rate 16 14 20 H Blood Pressure 100/72 104/57 L 94/54 L Blood Pressure Mean 81 72 67 Blood Pressure Source Blood Pressure Position Pulse Ox 98 98 98 Oxygen Delivery Method Room Air Room Air Room Air 03/08/25 10:00 03/08/25 10:37 03/08/25 10:52 Temperature 97.8 F 98.2 F 97.9 F Temperature Source Oral Oral Oral Pulse Rate 79 81 79 Respiratory Rate 20 H 16 20 H Blood Pressure 98/68 82/49 L 75/48 L Blood Pressure Mean 78 60 57 Blood Pressure Source Monitor Blood Pressure Position Supine Pulse Ox 98 96 95 Oxygen Delivery Method Room Air Room Air Room Air 03/08/25 10:58 03/08/25 10:58 03/08/25 11:13 Temperature 97.9 F Temperature Source Oral Pulse Rate 78 Respiratory Rate 16 Blood Pressure 75/48 L 75/48 L 86/52 L Blood Pressure Mean 57 57 63 Blood Pressure Source Blood Pressure Position Pulse Ox 95 Oxygen Delivery Method Room Air Weight Weight: 99 lb 3.328 oz Body Mass Index (BMI) 20.7 Physical Exam Const alert and oriented x3 Constitutional Narrative: frail, weak General Appearance: cooperative HEENT normocephalic, head/scalp atraumatic and hearing grossly normal bilaterally HEENT Narrative: dry oral mucosa Eyes EOMs intact bilaterally and conjunctivae normal Neck supple and no JVD Resp Resp Narrative: mildly diminished breath sounds bibasally, no wheezes or crackles. On room air. Cardio regular rate, regular rhythm, S1 normal heart sound, S2 normal heart sound and no murmurs GI normal to inspection, nondistended, normoactive bowel sounds, soft to palpation and non-tender Extremity no clubbing, cyanosis or edema Neuro oriented x3, CN's II-XII intact bilaterally and moves all extremities Neuro Narrative: right BKA Sensorium / Orientation: awake and alert Psych affect normal Results Lab / Micro Data 03/08/25 08:05 03/08/25 08:05 Labs: Laboratory Results - last 24 hr 03/08/25 08:05: WBC 22.3 H, RBC 2.19 L, Hgb 5.8 L*, Hct 18.4 L, MCV 84.0, MCH 26.5 L, MCHC 31.5 L, RDW Std Deviation 50.0 H, RDW Coeff of Genaro 16.3 H, Plt Count 566 H, MPV 8.9, Immature Gran % (Auto) 2.500 H, Neut % (Auto) 75.7 H, L ymph % (Auto) 14.5 L, Day % (Auto) 6.3, Eos % (Auto) 0.8, Baso % (Auto) 0.2, A bsolute Neuts (auto) 16.9 H, Absolute Lymphs (auto) 3.22, Nucleated RBC % 0, Sodium 134, Potassium 4.3, Chloride 105, Carbon Dioxide 17.6 L, Anion Gap 12, B UN 38 H, Creatinine 0.94, Estim Creat Clear Calc 40.13 L, Est GFR (MDRD) Non-Af 65, BUN/Creatinine Ratio 40.7 H, Glucose 97, Calcium 7.1 L, Total Bilirubin 0.17, AST 14, ALT 8, Alkaline Phosphatase 72, Total Protein 5.3 L, Albumin 2.4 L , Globulin 3.0, Albumin/Globulin Ratio 0.8 L, Lipase 10 L 03/08/25 08:48: PT 14.2, INR 1.1, APTT 28.3 03/08/25 08:50: Blood Type A NEGATIVE, Antibody Screen NEGATIVE, Crossmatch See Detail 03/08/25 09:45: Urine Color Yellow, Urine Clarity Clear, Urine pH 5.0, Ur Specific D[place]ridge 1.015, Urine Protein 15 H, Urine Glucose (UA) Normal, Urine Ketones Negative, Urine Occult Blood Negative, Urine Nitrite Negative, Urine Bilirubin Negative, Urine Urobilinogen Normal, Ur Leukocyte Esterase 25 H, Urine RBC 0 SEEN, Urine WBC 0-5 SEEN, Ur Squamous Epith Cells 0-5 SEEN, Urine Bacteria 0 SEEN, Hyaline Casts 25-50 SEEN, Urine Mucus 0 SEEN Micro: Microbiology 03/08/25 08:09 Stool Stool Occult Blood (ELFEGO) - Final Imaging Radiology Impression Abdomen/Pelvis CTA 03/08/25 09:38 IMPRESSION: Atherosclerotic plaque formation of the aorta and the major visceral branches. Sigmoid diverticulosis. No evidence of GI bleed. [facility] & [facility] Assessment/Plan (1) GI bleed: PLAN: Plan #Acute on chronic anemia due to GI bleed * Hemoglobin is 5.8. * CT of the abdomen and pelvis showed atherosclerotic plaque formation of the aorta and major visceral branches and sigmoid diverticulosis but no evidence of GI bleed * Transfused units of packed red blood cells in the ED. Placed on pantoprazole drip. Consult GI. * Start hydration with IV fluid normal saline at 150 cc/h. * Admit to ICU and consult critical care * She did have EGD in December 2023 which showed nonsevere nonerosive esophagitis with no bleeding and mild gastritis with nonbleeding duodenal ulcer with no stigmata of bleeding. She had another EGD on 05/06/2024 which showed normal esophagus and medium amount of food residue in the stomach with no gross lesions in the second portion of the duodenum. * Consult gastroenterology. Keep n.p.o. for now. #SIRS criteria: WBCs elevated at 22.3. No chest x-ray was done. I am concerned that with her vomiting she may have aspirated. Will get chest x-ray. She is currently on room air though. Will cover empirically with IV Zosyn. #Hypertension: On Lasix #Hyperlipidemia: On statin #History of TIA: Hold Plavix due to GI bleed. On statin #Depression and anxiety: On duloxetine, BuSpar and Ativan as well as mirtazapine and topiramate #History of GERD: On sucralfate and PPI DVT prophylaxis: SCDs. CODE STATUS:full code * Patient counseled extensively about different types of CODE STATUS including full code, DNR CCA and DNR CCA. Patient elects to be full code. * Total [id number] time 16 minutes. Charges/Coding Visit Charges Inpatient E&M: 33176 Init Hosp L3 Procedures Hospitalists Procedures: 28104 Advncd Care Plan 30 Min D/C Safety Score for UGIB Assessment Pj-Blatchford Bleeding Score (GBS): Stratifies upper GI bleeding patients who are low-risk and candidates for outpatient management. Hemoglobin, BUN, Recent Vital Signs: Hgb 5.8 g/dL (12.0-15.0) L* 03/08/25 08:05 BUN 38 mg/dL (4-19) H 03/08/25 08:05 Pulse Rate 78 Blood Pressure 86/52 Score Interpretation: Score of 0: A GBS of 0 is a ?Low Risk? GI bleed, and is highly sensitive (99.6% in a 2007 retrospective study) for predicting which patients did not require any ?medical intervention?: blood transfusion, endoscopy, or surgery. This was confirmed in a [address] [facility] study where patients with a score of 0 were actually discharged and had no GI bleeding mortality at 6 month followup Score above 0: A GBS greater than zero suggests a ?High Risk? GI bleed that is likely to require ?medical intervention?: transfusion, endoscopy, or surgery. A higher GBS also correlated with a higher likelihood of needing intervention Scores >/= 6 are associated with >50% risk of needing intervention D/C Safety Score for LGIB Assessment Assessment Tool: Readmission and adverse event risk in patients with acute lower GI bleeding. Hemoglobin and Recent Vital Signs: Hgb 5.8 g/dL (12.0-15.0) L* 03/08/25 08:05 Pulse Rate 78 03/08/25 10:58 Blood Pressure 86/52 03/08/25 11:13 Score Interpretation: Probability Percentage of safe discharge (absence of rebleeding, blood transfusion, therapeutic intervention, 28 day readmission, or ) Score of 8 or below: Consider discharge, with appropriate precautions. Score of 9 or above: Discharge NOT recommended. Consider admission with further workup and resuscitation as necessary.
--- NOTE | 2025-03-08 12:54 | CASEMGMT ---
Care Management Face to Face with patient for initial transition planning/care coordination assessment in the ED.? This entry writer introduced self and role at [facility]. Patient alert and oriented. Patient willing to participate in assessment and is able to answer all questions appropriately.? Care providers, pharmacy, and demographics verified. Admitting Diagnosis: ??GI Bleed Other diagnosis history: ?CVA, asthma, GI bleed, fibromyalgia, TIA, RAUL PCP: ?Anand Specialists: ?josué Acevedo Preferred Pharmacy: [facility] Insurance: ?[facility] medicare Prescription Benefit: ?yes Living Will/HPOA: completed LNOK: ? Living Arrangements: ?patient lives with in one story home, reports to being independent with ADLs and IADLs Transportation: and sons transport patient DME: ?shower chair, raised toilet seat, walker, cane, wheelchair, cpap, Oxygen through [employer], reports to being on 2L HHC: ?has used HH in past SNF/Rehab: ?patient and deny patient being in a SNF previously, but past assessments state patient had been admitted to SNF in past Community Resources: ?none at this time Behavioral Health History: ?patient had a jairo-psych stay May of 2024. Patient goals: Discharge plans uncertain.? Disposition Plan: admission to acute; RN CM/SW to follow for discharge planning needs that may arise. Urmila Jeffries, DENTAL SPECIALIST, INFORMATION TECHNOLOGY PROGRAM MANAGER
[2025-03-08] MEDS: 0.9% Normal Saline (1000mL) 1,000 ML 75 ML IV (17:43)
--- NOTE | 2025-03-08 17:48 | CON.PCM.GI_ITS ---
HPI Consult Data Date of Consult: 03/08/25 HPI Narrative Reason for Consultation: GI bleed HPI Narrative: TAJ BLANK, is a 69-year-old female with an outlined PMH, admitted via the ED on 03/08/2025 with complaints of nausea, diarrhea, weakness, and abdominal pain. Symptoms began one day prior to admission, including multiple episodes of diarrhea that progressed from black to bloody. She denied vomiting, fever, chills, shortness of breath, dizziness, lightheadedness, or other complaints. O * Vitals (ED):?Temp 97.9 F, BP 86/52, RR 16, O2 Sat 95% on room air. * Labs (ED): * CBC: Hgb 5.8, WBC 22.3, Plt 566 * Chem: Na 134, K 4.3, Bicarb 17.6, Cr 0.94 * INR: 1.1 * UA: No evidence of UTI * Imaging (ED):?CT abdomen/pelvis showed atherosclerotic plaque formation of the aorta and major visceral branches and sigmoid diverticulosis; no evidence of GI bleed identified. ] [facility] Medical History Stroke/cerebrovascular accident Confusion Asthma exacerbation in COPD Respiratory syncytial virus (RSV) Microcytic anemia RSV infection PTSD (post-traumatic stress disorder) Hyperthyroidism GI bleed Former smoker CPAP (continuous positive airway pressure) dependence On home oxygen therapy Myocardial infarct Congestive heart failure (CHF) Migraines Fall Contusion of nose Periorbital contusion of right eye Contusion of multiple fingers Chronic hypoxic respiratory failure Contusion of scalp Pneumonia Acute and chronic respiratory failure with hypoxia Normocytic anemia Acute exacerbation of chronic obstructive pulmonary disease (COPD) Fibromyalgia Chronic respiratory failure with hypoxia RAUL (obstructive sleep apnea) Incisional hernia TIA (transient ischemic attack) Osteoporosis Osteoarthritis Thyroid disorder Diverticulitis History of heart attack Sleep apnea History of pneumonia COPD (chronic obstructive pulmonary disease) History of bronchitis Asthma HTN (hypertension) Depression Anxiety Nausea and vomiting GERD (gastroesophageal reflux disease) Heart disease spinal stimulator Spinal stenosis Chronic back pain Hypothyroidism Home Medications ?Medication ?Instructions ?Recorded ?Last Taken ?Type atorvastatin 80 mg tablet 80 mg PO QHS cholesterol 09/0705/25/14 History 80 MG clopidogrel 75 mg tablet 75 mg PO DAILY anti platelet 06/01/13 11/18/23 History duloxetine 60 mg capsule,delayed 60 mg PO BID DEPRESSI ON 06/19/20 Unknown History release furosemide 40 mg tablet 60 mg PO DAILY water pill Unknown History liothyronine 5 mcg tablet 10 mcg PO DAILY HYPOTHYROIDI SM 08/23/22 Unknown History pantoprazole 40 mg tablet,delayed 40 mg PO BID ACID RE FLEX 30 days 05/06/23 Unknown Rx release #60 tabs metoprolol tartrate 25 mg tablet 25 mg PO Q12H blood p ressure 10/09/23 Unknown History acetaminophen 500 mg tablet 500 mg PO Q6H PRN pain 03/20 Unknown History buspirone 10 mg tablet 10 mg PO BID ANXIETY 4 Unknown History diclofenac sodium 75 mg 75 mg PO BID see phyisican 1 Unknown History tablet,delayed release ipratropium 0.5 mg-albuterol 3 mg 3 ml inhalation .Q4- 6H PRN 03/11/24 Unknown History (2.5 mg base)/3 mL nebulization shortness of breath or wheezing soln levothyroxine 50 mcg tablet 50 mcg PO SUSA thyroid Unknown History levothyroxine 75 mcg tablet 75 mcg PO MOTUWETHFR THYRO ID 03/11/24 Unknown History mometasone-formoterol HFA 200 2 puff inhalation BID CO PD 04/26/24 Unknown History mcg-5 mcg/actuation aerosol inhaler (Dulera) cholecalciferol (vitamin D3) 1,250 1,250 mcg PO QWEEK bones 05/22/24 Unknown History
--- NOTE | 2025-03-08 17:48 | EX.PCM.CON.G ---
HPI Consult Data Date of Consult: 03/08/25 HPI Narrative Reason for Consultation: GI bleed HPI Narrative: TAJ BLANK, is a 69-year-old female with an outlined PMH, admitted via the ED on 03/08/2025 with complaints of nausea, diarrhea, weakness, and abdominal pain. Symptoms began one day prior to admission, including multiple episodes of diarrhea that progressed from black to bloody. She denied vomiting, fever, chills, shortness of breath, dizziness, lightheadedness, or other complaints. O Vitals (ED):?Temp 97.9 F, BP 86/52, RR 16, O2 Sat 95% on room air. Labs (ED): CBC: Hgb 5.8, WBC 22.3, Plt 566 Chem: Na 134, K 4.3, Bicarb 17.6, Cr 0.94 INR: 1.1 UA: No evidence of UTI Imaging (ED):?CT abdomen/pelvis showed atherosclerotic plaque formation of the aorta and major visceral branches and sigmoid diverticulosis; no evidence of GI bleed identified. ] [facility] Medical History Stroke/cerebrovascular accident Confusion Asthma exacerbation in COPD Respiratory syncytial virus (RSV) Microcytic anemia RSV infection PTSD (post-traumatic stress disorder) Hyperthyroidism GI bleed Former smoker CPAP (continuous positive airway pressure) dependence On home oxygen therapy Myocardial infarct Congestive heart failure (CHF) Migraines Fall Contusion of nose Periorbital contusion of right eye Contusion of multiple fingers Chronic hypoxic respiratory failure Contusion of scalp Pneumonia Acute and chronic respiratory failure with hypoxia Normocytic anemia Acute exacerbation of chronic obstructive pulmonary disease (COPD) Fibromyalgia Chronic respiratory failure with hypoxia RAUL (obstructive sleep apnea) Incisional hernia TIA (transient ischemic attack) Osteoporosis Osteoarthritis Thyroid disorder Diverticulitis History of heart attack Sleep apnea History of pneumonia COPD (chronic obstructive pulmonary disease) History of bronchitis Asthma HTN (hypertension) Depression Anxiety Nausea and vomiting GERD (gastroesophageal reflux disease) Heart disease spinal stimulator Spinal stenosis Chronic back pain Hypothyroidism Home Medications ?Medication ?Instructions ?Recorded ?Last Taken ?Type atorvastatin 80 mg tablet 80 mg PO QHS cholesterol 06/01/13 05/25/14 History 80 MG clopidogrel 75 mg tablet 75 mg PO DAILY anti platelet 06/01/13 11/18/23 History duloxetine 60 mg capsule,delayed 60 mg PO BID DEPRESSION 06/19/20 Unknown History release furosemide 40 mg tablet 60 mg PO DAILY water pill 08/23/22 Unknown History liothyronine 5 mcg tablet 10 mcg PO DAILY HYPOTHYROIDISM 08/23/22 Unknown History pantoprazole 40 mg tablet,delayed 40 mg PO BID ACID REFLEX 30 days 05/06/23 Unknown Rx release #60 tabs metoprolol tartrate 25 mg tablet 25 mg PO Q12H blood pressure 10/09/23 Unknown History acetaminophen 500 mg tablet 500 mg PO Q6H PRN pain 11/05/23 Unknown History buspirone 10 mg tablet 10 mg PO BID ANXIETY 02/09/24 Unknown History diclofenac sodium 75 mg 75 mg PO BID see phyisican 02/09/24 Unknown History tablet,delayed release ipratropium 0.5 mg-albuterol 3 mg 3 ml inhalation .Q4-6H PRN 03/11/24 Unknown History (2.5 mg base)/3 mL nebulization shortness of breath or wheezing soln levothyroxine 50 mcg tablet 50 mcg PO SUSA thyroid 03/11/24 Unknown History levothyroxine 75 mcg tablet 75 mcg PO MOTUWETHFR THYROID 03/11/24 Unknown History mometasone-formoterol HFA 200 2 puff inhalation BID COPD 04/26/24 Unknown History mcg-5 mcg/actuation aerosol inhaler (Dulera) cholecalciferol (vitamin D3) 1,250 1,250 mcg PO QWEEK bones 05/22/24 Unknown History mcg (50,000 unit) capsule hydroxyzine HCl 50 mg tablet 50 mg PO QHS anxiety 05/26/24 Unknown History albuterol sulfate 90 mcg/actuation 2 puff inhalation Q4H PRN COPD #1 06/13/24 Unknown Rx aerosol inhaler device lorazepam 1 mg tablet 1 mg PO TID anxiety 11/15/24 Unknown History mupirocin 2 % topical ointment 1 applic topical BID infection 11/15/24 Unknown History quetiapine 50 mg tablet 50 mg PO QHS 11/15/24 Unknown History tiotropium bromide 2.5 2 inh inhalation DAILY LUNGS #3 ea 11/15/24 Unknown Rx mcg/actuation mist for inhalation (Spiriva Respimat) topiramate 50 mg tablet 50 mg PO QDAY 11/15/24 Unknown History cyclobenzaprine 10 mg tablet 10 mg PO QHS 11/25/24 Unknown History montelukast 10 mg tablet 10 mg PO QPM allergies #90 tabs 01/30/25 Unknown Rx OXYGEN - Supplemental ([facility] Pulmonary Information 03/08/25 Unknown History INFORMATIONAL USE ONLY) Allergy/AdvReac Type Severity Reaction Status Date / Time cefaclor (From Ceclor) Allergy Itching Verified 01/05/25 10:41 clarithromycin Allergy Hives Verified 01/05/25 10:41 doxycycline Allergy Itching Verified 01/05/25 10:41 Penicillins Allergy Hives Verified 01/05/25 10:41 Sulfa (Sulfonamide Allergy Hives Verified 01/05/25 10:41 Antibiotics) zolpidem (From Ambien) AdvReac Unknown mental Verified 01/05/25 10:41 issues Family History Father Asthma Heart disease Grandmother Breast cancer Diabetes Mother Heart disease COPD (chronic obstructive pulmonary disease) Other Cancer Surgical History Hx of BKA History of appendectomy History of incisional hernia repair History of incisional hernia repair (~12/20/18) Hx of cholecystectomy History of esophagogastroduodenoscopy (EGD) (~07/2018) Previous back surgery S/P hysterectomy S/P carpal tunnel release S/P knee surgery S/P correction of deviated nasal septum Status post thyroidectomy H/O heart artery stent Status post amputation of right foot Social History household members: spouse housing: house Smoking Status: Light Smoker (<10/day) Tobacco: How many years used: 25 second hand exposure: Yes alcohol intake: never substance use type: does not use caffeine: Yes what type of physical activity do you participate in: none frequency: does not exercise ROS Constitutional Constitutional: Denies fatigue, fever(s), poor appetite, weight gain or weight loss Gastrointestinal Gastrointestinal: Denies belching, bloating, change in bowel habits, change in stool character, chewing difficulty, coffee ground emesis, constipation, cramping, diarrhea, dyspepsia, dysphagia, early satiety, excessive flatus, fecal incontinence, heartburn, hematemesis, hematochezia, hemorrhoids, loose stools, melena, nausea, odynophagia, rectal bleeding, tenesmus, vomiting or weight changes Physical Exam Const alert, oriented x3, no apparent distress and healthy appearing General Appearance: cooperative GI normal to inspection, nondistended, normoactive bowel sounds, soft to palpation, non-tender and non-distended Percussion: normal to percussion Rectal Exam: deferred Lab / Micro Data 03/08/25 08:05 03/08/25 08:05 Labs: Laboratory Results - last 24 hr 03/08/25 08:05: WBC 22.3 H, RBC 2.19 L, Hgb 5.8 L*, Hct 18.4 L, MCV 84.0, MCH 26.5 L, MCHC 31.5 L, RDW Std Deviation 50.0 H, RDW Coeff of [place] 16.3 H, Plt Count 566 H, MPV 8.9, Immature Gran % (Auto) 2.500 H, Neut % (Auto) 75.7 H, Lymph % (Auto) 14.5 L, Foard % (Auto) 6.3, Eos % (Auto) 0.8, Baso % (Auto) 0.2, Absolute Neuts (auto) 16.9 H, Absolute Lymphs (auto) 3.22, Nucleated RBC % 0, Sodium 134, Potassium 4.3, Chloride 105, Carbon Dioxide 17.6 L, Anion Gap 12, BUN 38 H, Creatinine 0.94, Estim Creat Clear Calc 40.13 L, Est GFR (MDRD) Non-Af 65, BUN/Creatinine Ratio 40.7 H, Glucose 97, Calcium 7.1 L, Total Bilirubin 0.17, AST 14, ALT 8, Alkaline Phosphatase 72, Total Protein 5.3 L, Albumin 2.4 L, Globulin 3.0, Albumin/Globulin Ratio 0.8 L, Lipase 10 L 03/08/25 08:48: PT 14.2, INR 1.1, APTT 28.3 03/08/25 08:50: Blood Type A NEGATIVE, Antibody Screen NEGATIVE, Crossmatch See Detail 03/08/25 09:45: Urine Color Yellow, Urine Clarity Clear, Urine pH 5.0, Ur Specific [place] 1.015, Urine Protein 15 H, Urine Glucose (UA) Normal, Urine Ketones Negative, Urine Occult Blood Negative, Urine Nitrite Negative, Urine Bilirubin Negative, Urine Urobilinogen Normal, Ur Leukocyte Esterase 25 H, Urine RBC 0 SEEN, Urine WBC 0-5 SEEN, Ur Squamous Epith Cells 0-5 SEEN, Urine Bacteria 0 SEEN, Hyaline Casts 25-50 SEEN, Urine Mucus 0 SEEN Micro: Microbiology 03/08/25 08:09 Stool Stool Occult Blood (ELFEGO) - Final Imaging Radiology Impression Abdomen/Pelvis CTA 03/08/25 09:38 IMPRESSION: Atherosclerotic plaque formation of the aorta and the major visceral branches. Sigmoid diverticulosis. No evidence of GI bleed. Reading Location: [id number] Assessment & Plan Assessment/Plan (1) GI bleed: PLAN: The patient presents with severe symptomatic anemia (Hgb 5.8) and hemodynamic instability (BP 86/52), consistent with significant gastrointestinal bleeding as evidenced by the progression from melena (black stools) to hematochezia (bloody stools). The source of the bleed is currently unknown, as the CT imaging did not identify active extravasation or a definitive source. The differential diagnosis includes diverticular bleeding (given the CT finding of diverticulosis) and ischemic colitis (given the CT finding of severe atherosclerotic disease in visceral branches and hypotension). The elevated WBC count (22.3) could be a stress response to the anemia/hypovolemia, but in the context of abdominal pain and atherosclerotic disease, raises suspicion for potential ischemic process. P Resuscitation: Immediate large bore IV access and aggressive fluid resuscitation to address hypotension. Transfuse packed red blood cells (PRBCs) urgently to target Hgb >7 g/dL or higher given hemodynamic instability and active symptoms. Type and crossmatch for at least 4 units. Diagnosis: Continue resuscitation and stabilize patient prior to definitive diagnostic procedures. Once stabilized, proceed with esophagogastroduodenoscopy to localize and potentially a colonoscopy treat the source of the GIB. . Management: Initiate bowel preparation for urgent colonoscopy once deemed safe for the patient. Monitor vitals, Hgb, and clinical status frequently. Monitor for signs of ongoing bleeding, abdominal pain, or changes in clinical status suggestive of bowel ischemia. Charges/Coding Visit Charges Inpatient E&M: 68741 Init Hosp L3
[2025-03-08 18:50] LABS: Hematocrit 33.5 % (37-47); Hemoglobin 11.4 g/dL (12.0-15.0)
[2025-03-08] MEDS: Budesonide Respules 0.5 MG/2 ML AMPUL.NEB. INHALATION (18:55)
[2025-03-08] MEDS: 0.9 % NaCl (Sterile) Posiflush 10 mL IV (19:45)
--- NOTE | 2025-03-08 21:13 | PCM.HOSP.N ---
Hospitalist Note C/o generalized and diffuse abdominal pain 10/04, requesting more medicine than just Tylenol. Reviewed recent VS, BP appropriate. Ordered OxyIR 5mg PO x1.
[2025-03-09] VITALS (27 sets, daily range): BP systolic 80–141; BP diastolic 47–79; PULSE 68–92; RESP 13–26; TEMP 36.3–36.8; O2SAT 90–100; BMI 21.8
[2025-03-09] MEDS: 0.9% Normal Saline (500mL Bag) 500 ML 999 ML IV (00:10)
--- NOTE | 2025-03-09 00:15 | PCM.HOSP.N ---
Hospitalist Note Patient with hypotensive episode suspect following sedated medications, improved with 500 cc IV fluid bolus, will give an additional 250 IV fluid bolus and reassess.
[2025-03-09] MEDS: 0.9% Normal Saline (1000mL) 1,000 ML 250 ML IV (00:45)
[2025-03-09] MEDS: 0.9% Normal Saline (250mL Bag) 250 ML 999 ML IV (01:20)
[2025-03-09] MEDS: Pantoprazole Sodium 80 MG in 0.9% Normal Saline (100mL Bag) 80 ML 10 MG CONT INF ×3 (04:06→23:58)
[2025-03-09] MEDS: 0.9% Normal Saline (1000mL) 1,000 ML 75 ML IV (04:06)
[2025-03-09] MEDS: 0.9 % NaCl (Sterile) Posiflush 10 mL IV ×3 (04:16→23:58)
[2025-03-09 05:47] LABS: Hematocrit 29.4 % (37-47); Hemoglobin 9.8 g/dL (12.0-15.0); Immature Granulocytes Count 0.230 X10^3/uL (0.0-0.0); Mean Corp Hgb Conc 33.3 g/dL (32-36); Mean Corpuscular Volume 85.7 fL (81-99); Mean Platelet Vol. 8.6 fl (6.2-12.0); NRBC Flagged by Analyzer 0.1 % (0-5); Platelet Count 293 K/mm3 (150-450); RBC Distribution Width CV 16.1 % (11.6-14.6); RBC Distribution Width SD 50.4 fl (35.1-43.9); Red Blood Count 3.43 M/mm3 (4.2-5.4); White Blood Count 14.4 K/mm3 (4.4-11.0)
[2025-03-09 06:07] LABS: Anion Gap 4 (5-15); BUN 21 mg/dL (4-19); BUN/Creat Ratio 34.3 RATIO (10-20); Carbon Dioxide 21.4 mmol/L (21.0-32.0); Chloride 114 mmol/L (98-108); Estimated Creatinine Clearance 47.67 ml/min (50-250); Glucose 88 mg/dL (70-99); Potassium 3.9 mmol/L (3.3-5.1)
[2025-03-09 06:19] LABS: Calcium,Total 6.0 mg/dL (7.6-11.0)
[2025-03-09] MEDS: Budesonide Respules 0.5 MG/2 ML AMPUL.NEB. INHALATION (06:59)
--- NOTE | 2025-03-09 08:02 | PCM.PRE.AN2 ---
ASA Classification* ASA Classification ASA Classification: 3 Assessment & Plan Anesthesia* Anesthesia Assessment Anesthesia Assessment: Discussed sedation and/or anesthesia options, risks, benefits, and alternatives with patient/parents/legal guardian/POA. Questions invited. The patient/parents/legal guardian/POA seems to understand and agrees to proceed with anesthesia plan. Reviewed the physical assessment, medical history, allergy history and patient home medications list prior to surgery/procedure/anesthetic and documented any changes. Performed airway and anesthesia risk assessments. Anesthesia Type Anesthesia Type: MAC History Source History Obtained from:: Patient and Chart Anesthesia Focused Assessment* Temperature: 98.0 F Pulse Rate: 76 Blood Pressure: 95/51 Respiratory Rate: 20 Pulse Ox: 96 Oxygen Delivery Method: Room Air Oxygen Flow Rate (L/min): 4 Airway Assessment Mouth opens: >3 cm Mallampati Score: II Teeth Condition: Missing (Patient is missing multiple teeth. Remaining teeth are tight.) Neck Range of motion (ROM): Limited ROM (Slight Decrease) Labs Anesthesia Preop lab: CBC WBC, (4.4-11.0) 14.4 K/mm3 H Today, 05:40 RBC, (4.2-5.4) 3.43 M/mm3 L Today, 05:40 Hgb, (12.0-15.0) 9.8 g/dL L Today, 05:40 Hct, (37-47) 29.4 % L Today, 05:40 Plt Count, (150-450) 293 K/mm3 Today, 05:40 CHEMISTRY Potassium, (3.3-5.1) 3.9 mmol/L Today, 05:40 Sodium, (133-145) 140 mmol/L Today, 05:40 Magnesium, (1.6-2.6) 1.6 mg/dL 05/26/24, 02:15 Phosphorus, (2.5-4.9) 2.6 mg/dL 05/26/24, 02:15 BUN, (4-19) 21 mg/dL H Today, 05:40 Creatinine, (0.70-1.20) 0.60 mg/dL L Today, 05:40 Glucose, (70-99) 88 mg/dL Today, 05:40 POC Glucose, (74-106) 123 mg/dL H 05/27/24, 05:29 TSH, (0.300-4.200) 1.600 uIU/mL 08/25/24, 10:50 COAG PT, (11.7-14.9) 14.2 SECONDS 03/08/25, 08:48 Pre-Assessment Diagnosis/Proposed Procedure Planned Operative Procedure(s): esophagogastroduodenoscopy Anesthesia History Anesthesia History - certified medicine aide: Anesthesia History - certified medicine aide Hx Hospitalization No: 2018 PANIC ATTACK/ 06/19/20 09:36 PNEUMONIA Any Problems With Anesthesia No 05/06/24 11:59 Cholinesterase deficiency No 05/06/24 11:59 You/Your Family Experience No 05/06/24 11:59 fever (hyperthermia) with Relationship Recent Exposure to Contagious No 05/06/24 16:49 Disease Does patient have nerve No 05/06/24 11:59 stimulator Patient instructed to have device shut off --Does patient have Pacemaker or ICD? When Was Last Pacemaker Check QUESTION #4 FULL TEXT: You/Your Family Experience fever (hyperthermia) with Anesthesia Last Oral Intake Last Oral intake: Last Oral Intake NPO since 0000 Meds taken in AM with sips of water? Meds patient instructed to take am of surgery Any additional information?: Yes NPO since: 00:00 PONV PONV - certified medicine aide: PONV - certified medicine aide Female HX of Motion Sickness HX of N/V After Surgery Non-Smoker Duration of Surgery greater than 60 minutes Number of Risk Factors PONV Score Height & Weight Height & Weight: Anesthesia: Height & Weight Height 4 ft 9 in 03/08/25 12:45 Weight: 45.8 kg 03/09/25 04:20 Body Mass Index (BMI) 21.8 03/09/25 04:20 Respiratory Assessment Respiratory Assessment - certified medicine aide: Respiratory Tract Infection Hx - certified medicine aide Hx Respiratory Tract Infection Yes: RSV 05/06/24 16:49 STOP Sleep Apnea STOP Sleep Apnea - certified medicine aide: STOP Sleep Apnea - certified medicine aide Hx Hypertension Yes 03/08/25 12:48 Hx Sleep Apnea Yes 03/08/25 12:48 CPAP Yes 03/08/25 12:48 BIPAP No 03/08/25 12:48 Do you snore loudly (louder than talking or can be heard Do you often feel tired/ fatigued/ sleepy during daytime? Has anyone observed you stop breathing during sleep? STOP Results Positive 03/08/25 12:48 QUESTION #5 FULL TEXT : Do you snore loudly (louder than talking or can be heard through closed doors)? 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 Specify any problems Hx of Preganancy in last 3 No 03/08/25 12:48 Months Nurse Filling Out Transfusion DSLOAN 03/08/25 12:48 & Questions: Date: 03/08/25 03/08/25 12:48 Time: 12:50 03/08/25 12:48 Patient unable to answer at this time (ie. confused, unrespo /Reproduction History /Reproductive History - certified medicine aide: /Reproductive Hx- certified medicine aide Hx Now Gestational Age (in weeks): EDC: Hx Hx Para Hx Section SAB No 05/06/24 11:59 Does the father of the baby or his family experience fever w Father of the baby Malignant Hypertension history comment Active Medications Active Medications: Current Medications Generic Name Dose Route Start Last Admin Trade Name Freq PRN Reason Stop Dose Admin Acetaminophen 500 mg 03/08/25 14:42 Acetaminophen 500 Mg Tablet PO Q6H PRN pain Albuterol Sulfate 2.5 mg 03/08/25 14:48 Albuterol 2.5 Mg/3 Ml Vial.Neb. INHALATION Q4H PRN COPD Albuterol/Ipratropium 3 ml 03/08/25 14:42 03/08/25 18:55 Ipratropium/Albuterol Sulfate 3 Ml Ampul.Neb INHALATION 3 ml Q4H PRN Administration shortness of breath or wheezing Atorvastatin Calcium 80 mg 03/08/25 22:00 03/08/25 21:33 Atorvastatin Calcium 80 Mg Tablet PO 80 mg QHS JESSICA Administration Budesonide 0.5 mg 03/08/25 15:15 03/09/25 06:59 Budesonide Respules 0.5 Mg/2 Ml Ampul.Neb. INHALATION 0.5 mg Q12H.RT JESSICA Administration Buspirone HCl 10 mg 03/08/25 22:00 03/08/25 21:31 Buspirone 5 Mg Tablet PO 10 mg BID JESSICA Administration Cyclobenzaprine HCl 10 mg 03/08/25 22:00 03/08/25 21:31 Cyclobenzaprine Hcl 10 Mg Tablet PO 10 mg QHS JESSICA Administration Duloxetine HCl 60 mg 03/08/25 22:00 03/08/25 21:31 Duloxetine Hcl 60 Mg Capsule PO 60 mg BID JESSICA Administration Furosemide 60 mg 03/09/25 10:00 Furosemide 20 Mg Tablet PO DAILY [facility] Protocol Hydroxyzine HCl 50 mg 03/08/25 22:00 03/08/25 21:32 Hydroxyzine 10 Mg Tablet PO 50 mg QHS JESSICA Administration Pantoprazole Sodium 80 mg/ 100 mls @ 10 mls/hr 03/08/25 08:10 03/09/25 04:06 Sodium Chloride CONT INF 10 mls/hr Q10H JESSICA Administration Sodium Chloride 250 mls @ 15 mls/hr 03/08/25 12:38 IV .[id number] PRN Saline Flush Sodium Chloride 250 mls @ 15 mls/hr 03/08/25 12:38 IV .[id number] PRN Additional IVPB Infusion Sodium Chloride 1,000 mls @ 75 mls/hr 03/08/25 14:45 03/09/25 04:06 IV 03/09/25 17:24 75 mls/hr .[id number] JESSICA Administration Calcium Gluconate 1 gm/ Sodium 110 mls @ 100 mls/hr 03/09/25 07:30 Chloride IV 03/09/25 08:35 X1 ONE Cefepime HCl 1 gm/ Sodium 50 mls @ 100 mls/hr 03/09/25 07:35 Chloride IV Q8 JESSICA Levothyroxine Sodium 75 mcg 03/09/25 06:00 03/09/25 05:14 Levothyroxine 75 Mcg Tablet PO Not Given MOTUWETHFR JESSICA Levothyroxine Sodium 50 mcg 03/11/25 06:00 Levothyroxine 50 Mcg Tablet PO SUSA [facility] Liothyronine Sodium 10 mcg 03/09/25 06:00 03/09/25 05:14 Liothyronine 5 Mcg Tablet PO Not Given DAILY@0600 [facility] Lorazepam 1 mg 03/08/25 22:00 03/09/25 05:14 Lorazepam 1 Mg Tablet PO Not Given TID JESSICA Metoprolol Tartrate 25 mg 03/08/25 14:45 03/08/25 21:33 Metoprolol Tartrate 25 Mg Tablet PO 25 mg Q12 JESSICA Administration Protocol Montelukast Sodium 10 mg 03/08/25 21:00 03/08/25 21:30 Montelukast 10 Mg Tablet PO 10 mg QPM JESSICA Administration Nitroglycerin 0.4 mg 03/08/25 14:45 Nitroglycerin (Inpatient Use) 0.4 Mg Tab.Subl SL Q5M PRN CARDIAC/CHEST PAIN Ondansetron HCl 4 mg 03/08/25 14:45 03/08/25 19:45 Ondansetron 4 Mg/2 Ml Vial IV 4 mg Q8H PRN PRN Administration NAUSEA/VOMITING Quetiapine Fumarate 50 mg 03/08/25 22:00 03/08/25 21:34 Quetiapine 25 Mg Tablet PO 50 mg QHS JESSICA Administration Sodium Chloride 10 - 40 ml 03/08/25 12:38 03/09/25 04:16 0.9 % Nacl (Sterile) Posiflush 10 Ml IV 20 ml UD PRN Administration Port access or dressing change Sodium Chloride 10 - 40 ml 03/08/25 12:38 0.9% Saline Lock 10 Ml Syringe IV UD PRN Midline Flush Sodium Chloride 10 - 40 ml 03/08/25 12:38 0.9% Saline Lock 10 Ml Syringe IV UD PRN SALINE FLUSH Topiramate 50 mg 03/08/25 14:45 03/08/25 17:37 Topiramate 50 Mg Tablet PO 50 mg DAILY JESSICA Administration [facility] History Stroke/cerebrovascular accident Confusion Asthma exacerbation in COPD Respiratory syncytial virus (RSV) Microcytic anemia RSV infection PTSD (post-traumatic stress disorder) Hyperthyroidism GI bleed Former smoker CPAP (continuous positive airway pressure) dependence On home oxygen therapy Myocardial infarct Congestive heart failure (CHF) Migraines Fall Contusion of nose Periorbital contusion of right eye Contusion of multiple fingers Chronic hypoxic respiratory failure Contusion of scalp Pneumonia Acute and chronic respiratory failure with hypoxia Normocytic anemia Acute exacerbation of chronic obstructive pulmonary disease (COPD) Fibromyalgia Chronic respiratory failure with hypoxia RAUL (obstructive sleep apnea) Incisional hernia TIA (transient ischemic attack) Osteoporosis Osteoarthritis Thyroid disorder Diverticulitis History of heart attack Sleep apnea History of pneumonia COPD (chronic obstructive pulmonary disease) History of bronchitis Asthma HTN (hypertension) Depression Anxiety Nausea and vomiting GERD (gastroesophageal reflux disease) Heart disease spinal stimulator Spinal stenosis Chronic back pain Hypothyroidism Home Medications ?Medication ?Instructions ?Recorded ?Last Taken ?Type atorvastatin 80 mg tablet 80 mg PO QHS cholesterol 06/01/13 05/25/14 History 80 MG clopidogrel 75 mg tablet 75 mg PO DAILY anti platelet 06/01/13 11/18/23 History duloxetine 60 mg capsule,delayed 60 mg PO BID DEPRESSION 06/19/20 Unknown History release furosemide 40 mg tablet 60 mg PO DAILY water pill 08/23/22 Unknown History liothyronine 5 mcg tablet 10 mcg PO DAILY HYPOTHYROIDISM 08/23/22 Unknown History pantoprazole 40 mg tablet,delayed 40 mg PO BID ACID REFLEX 30 days 05/06/23 Unknown Rx release #60 tabs metoprolol tartrate 25 mg tablet 25 mg PO Q12H blood pressure 10/09/23 Unknown History acetaminophen 500 mg tablet 500 mg PO Q6H PRN pain 11/05/23 Unknown History buspirone 10 mg tablet 10 mg PO BID ANXIETY 02/09/24 Unknown History diclofenac sodium 75 mg 75 mg PO BID see phyisican 02/09/24 Unknown History tablet,delayed release ipratropium 0.5 mg-albuterol 3 mg 3 ml inhalation .Q4-6H PRN 03/11/24 Unknown History (2.5 mg base)/3 mL nebulization shortness of breath or wheezing soln levothyroxine 50 mcg tablet 50 mcg PO SUSA thyroid 03/11/24 Unknown History levothyroxine 75 mcg tablet 75 mcg PO MOTUWETHFR THYROID 03/11/24 Unknown History mometasone-formoterol HFA 200 2 puff inhalation BID COPD 04/26/24 Unknown History mcg-5 mcg/actuation aerosol inhaler (Dulera) cholecalciferol (vitamin D3) 1,250 1,250 mcg PO QWEEK bones 05/22/24 Unknown History mcg (50,000 unit) capsule hydroxyzine HCl 50 mg tablet 50 mg PO QHS anxiety 05/26/24 Unknown History albuterol sulfate 90 mcg/actuation 2 puff inhalation Q4H PRN COPD #1 06/13/24 Unknown Rx aerosol inhaler device lorazepam 1 mg tablet 1 mg PO TID anxiety 11/15/24 Unknown History mupirocin 2 % topical ointment 1 applic topical BID infection 11/15/24 Unknown History quetiapine 50 mg tablet 50 mg PO QHS 11/15/24 Unknown History tiotropium bromide 2.5 2 inh inhalation DAILY LUNGS #3 ea 11/15/24 Unknown Rx mcg/actuation mist for inhalation (Spiriva Respimat) topiramate 50 mg tablet 50 mg PO QDAY 11/15/24 Unknown History cyclobenzaprine 10 mg tablet 10 mg PO QHS 11/25/24 Unknown History montelukast 10 mg tablet 10 mg PO QPM allergies #90 tabs 01/30/25 Unknown Rx OXYGEN - Supplemental ([facility] Pulmonary Information 03/08/25 Unknown History INFORMATIONAL USE ONLY) Allergy/AdvReac Type Severity Reaction Status Date / Time cefaclor (From Ceclor) Allergy Itching Verified 01/05/25 10:41 clarithromycin Allergy Hives Verified 01/05/25 10:41 doxycycline Allergy Itching Verified 01/05/25 10:41 Penicillins Allergy Hives Verified 01/05/25 10:41 Sulfa (Sulfonamide Allergy Hives Verified 01/05/25 10:41 Antibiotics) zolpidem (From [facility] [place]) AdvReac Unknown mental Verified 01/05/25 10:41 issues Family History Father Asthma Heart disease Grandmother Breast cancer Diabetes Mother Heart disease COPD (chronic obstructive pulmonary disease) Other Cancer Surgical History Hx of BKA History of appendectomy History of incisional hernia repair History of incisional hernia repair (~12/20/18) Hx of cholecystectomy History of esophagogastroduodenoscopy (EGD) (~07/2018) Previous back surgery S/P hysterectomy S/P carpal tunnel release S/P knee surgery S/P correction of deviated nasal septum Status post thyroidectomy H/O heart artery stent Status post amputation of right foot Social History household members: spouse housing: house Smoking Status: Light Smoker (<10/day) Tobacco: How many years used: 25 second hand exposure: Yes alcohol intake: never substance use type: does not use caffeine: Yes what type of physical activity do you participate in: none frequency: does not exercise Review of Systems (Anesthesia) ROS Narrative System reviewed and no additional complaints, except as documented.
[2025-03-09] MEDS: Lactated Ringers 1,000 ML 15 ML IV (08:03)
--- NOTE | 2025-03-09 08:30 | EGD_PTH ---
PATIENT: TAJ BLANK LOC: [facility] U#:[id number] AGE/SX: 69/F ROOM: [facility] RE03/08/[address]: Dr. Le Alba MD : 1955 BED: 1 DIS: 03/12/2025 SPEC #: [id number] RECD: 03/09/25 09:38 STATUS: MADHU REShmuel #: [id number] DAYDAY: 03/09/25 08:[address]: Le Alba DEPT: SURGICAL PATHOLOGY RECD BY: Will Serrano ENTERED: 03/09/25 10:22 SP TYPE: EGD BIOPSY OTHR DR: DO Dr. Yaw Nguyen MD Dr. Rahsaan Friend, DO Heather Evans, NP-C MARGARET KirkC MARIA M Liu Tissues: A - Gastric mucous membrane Procedures: Immunohistochemical Stains Surgery Specimen Level IV HEADER OPERATION: EGD with biopsy PRE-OP DIAGNOSIS: GI bleed TISSUE SUBMITTED: A- Gastric body biopsy MICROSCOPIC DIAGNOSIS A. Stomach, gastric body, biopsy: - Oxyntic mucosa with slight chronic inflammation - An immunohistochemical stain for Heliobacter pylori is negative MICROSCOPIC DESCRIPTION Slides are reviewed. GROSS DESCRIPTION A. Received in fixative is one container labeled with the patient's name and designated Gastric body biopsy. The specimen consists of multiple irregular fragments of benson tissue that in aggregate measure 1.3 x 0.4 x 0.1 cm. The specimen is totally submitted in one cassette. [place] 03/09/2025 CPT:68788
--- NOTE | 2025-03-09 08:54 | OP.EGD_ITS ---
Patient Name: Codi Owen Procedure Date: 03/09/2025 8:31 AM Date of : 1955 Age: 69 Procedure: Upper GI endoscopy Indications: Recent gastrointestinal bleeding Providers: Sree Diggs DO Medicines: Monitored Anesthesia Care Patient Profile: This is a 69 year old female. Refer to note in patient chart for documentation of history and physical. Patient has symptoms. Complications: No immediate complications. Procedure: Pre-Anesthesia Assessment: - Prior to the procedure, a History and Physical was performed, and patient medications and allergies were reviewed. The patient is competent. The risks and benefits of the procedure and the sedation options and risks were discussed with the patient. All questions were answered and informed consent was obtained. Patient identification and proposed procedure were verified by the physician in the pre-procedure area. Mental Status Examination: alert and oriented. Airway Examination: normal oropharyngeal airway and neck mobility. Respiratory Examination: clear to auscultation. CV Examination: normal. ASA Grade Assessment: II - A patient with mild systemic disease. After reviewing the risks and benefits, the patient was deemed in satisfactory condition to undergo the procedure. The anesthesia plan was to use monitored anesthesia care (MAC). Immediately prior to administration of medications, the patient was re-assessed for adequacy to receive sedatives. The heart rate, respiratory rate, oxygen saturations, blood pressure, adequacy of pulmonary ventilation, and response to care were monitored throughout the procedure. The physical status of the patient was re-assessed after the procedure. After obtaining informed consent, the endoscope was passed under direct vision. Throughout the procedure, the patient's blood pressure, pulse, and oxygen saturations were monitored continuously. The Endoscope was introduced through the mouth, and advanced to the fourth part of the duodenum. Small bowel enteroscopy was deemed necessary. The upper GI endoscopy was accomplished without difficulty. The patient tolerated the procedure well. Scope In: 8:37:15 AM Scope Out: 8:41:16 AM Total Procedure Duration Time 0 hours 4 minutes 1 second Findings: The examined esophagus was normal. Localized moderate inflammation characterized by congestion (edema) was found in the gastric body. Biopsies were taken with a cold forceps for histology. Biopsies were taken with a cold forceps for Helicobacter pylori testing. Verification of patient identification for the specimen was done. Estimated blood loss was minimal. No gross lesions were noted in the entire examined duodenum. Impression: - Normal esophagus. - Acute gastritis. Biopsied. - No gross lesions in the entire examined duodenum. Recommendation: - Return patient to [facility]. - Resume previous diet. - Continue present medications. - Await pathology results. - Colonoscopy Procedure Code(s): --- Professional --- 21847, Small intestinal endoscopy, enteroscopy beyond second portion of duodenum, not including ileum; with biopsy, single or multiple CPT copyright 2021 [employer] [employer]. All rights reserved. The codes documented in this report are preliminary and upon rescue worker review may be revised to meet current compliance requirements. Sree Diggs DO 03/09/2025 8:53:57 AM This report has been signed electronically. Number of Addenda: 0 Note Initiated On: 03/09/2025 8:31 AM
--- NOTE | 2025-03-09 08:54 | OP.PROVAT_ITS ---
03/09/2025 Chrystal Michel [address] [place] [address] Re : Upper GI endoscopy procedure for Codi Brayden Dear Dr. Michel This procedure was performed on February. My impressions and recommendations are as follows: Impressions : - Normal esophagus. - Acute gastritis. Biopsied. - No gross lesions in the entire examined duodenum. Recommendations : - Return patient to [facility] for ongoing care. - Resume previous diet. - Continue present medications. - Await pathology results. - Colonoscopy My findings are described in the full procedure note, which is enclosed. If I can be of further assistance, please feel free to contact me at . Sincerely, Sree Diggs, 03/09/2025 8:53:57 AM This report has been signed electronically.
--- NOTE | 2025-03-09 08:54 | PCM.PN.BLA ---
Progress Note Patient underwent an upper endoscopy for an acute GI blood loss and severe anemia with a hemoglobin of 5.8 status post transfusion of 3 units of packed red blood cells. She underwent an upper endoscopy and no etiology of acute blood loss anemia was seen. She will need to undergo colonoscopy. Physical Exam Const alert, oriented x3, no apparent distress and healthy appearing General Appearance: cooperative GI normal to inspection, nondistended, normoactive bowel sounds, soft to palpation, non-tender and non-distended Percussion: normal to percussion Rectal Exam: deferred Assessment & Plan Assessment/Plan (1) GI bleed: PLAN: She was explained alternatives, risk and benefits include not withstanding bleeding, fracture, sepsis, perforation, emergent urgent . She will need to undergo colonoscopy. And she will have an ASA of 3. Visit Charges Inpatient E&M: 00161 Subs Hosp L3
--- NOTE | 2025-03-09 09:09 | PCM.POST.ANE ---
Anesthesia: Postop Eval I Current Vital Signs Temperature: 97.3 F Pulse Rate: 81 Blood Pressure: 94/53 Respiratory Rate: 16 Pulse Ox: 96 Oxygen Delivery Method: Nasal Cannula Oxygen Flow Rate (L/min): 4 Assessment Airway patent: Yes Spontaneous unlabored respirations: Yes Mental status: Awake nausea: No Vomiting: No Anesthesia Complication: No Fluid Hydration Crystalloid volume administer (ml): 400 Total IV fluid infused: 400 Progress Note Anesthesia document: Postop Eval 1 completed: Yes
[2025-03-09] MEDS: Calcium Gluconate IV 1 GM in 0.9% Normal Saline (100mL Bag) 100 ML IV (10:27)
[2025-03-09] MEDS: Cefepime HCl 1 GM in 0.9% Normal Saline (50mL MB+) 50 ML IV ×3 (11:54→23:17)
--- NOTE | 2025-03-09 13:05 | PCM.POSTANE2 ---
Anesthesia Postop Eval I Sum Postop Eval Completion status Anesthesia document: Postop Eval 1 completed: Yes Anesthesia Postop Eval I Summary Anesthesia Postop Eval I Summary: Anesthesia Postop Eval I: Assessment Summary Airway patent Yes 03/09/25 09:10 [email or web address] Spontaneous unlabored Yes 03/09/25 09:10 [email or web address] respirations Mental status Awake 03/09/25 09:10 [email or web address] nausea No 03/09/25 09:10 [email or web address] Vomiting No 03/09/25 09:10 [email or web address] Anesthesia Postop Eval I: Fluid Summary Crystalloid volume administer 400 03/09/25 09:10 [email or web address] (ml) Colloids volume administered ( ml) Blood Product volume administered (ml) Total IV fluid infused 400 03/09/25 09:10 [email or web address] Anesthesia Postop Eval I: Summary Notes Anesthesia Complication No 03/09/25 09:10 [email or web address] Anesthesia Complication Comment: Post-operative progress note Anesthesia: Postop Eval II Evaluation Mental status: Awake Pain Level: 0 nausea: No Vomiting: No Complications Anesthesia Complication: No
--- NOTE | 2025-03-09 13:57 | PN_ITS ---
Subjective Subjective Patient seen and examined. Her was by bedside. She had EGD today which showed no evidence of any bleeding. She is due for colonoscopy tomorrow. She is on 4 L today and was put on oxygen overnight. Objective Data Objective Data Vital Signs: Vital Signs Temp Pulse Resp BP Pulse Ox O2 Del Method O2 Flow Rate 98.2 F 76 24 H 108/65 98 Room Air 4 03/09/25 12:00 03/09/25 13:07 03/09/25 13:07 03/09/25 13:00 03/09/25 13:00 03/09/25 13:00 03/09/25 09:11 Oxygen Flow Rate (L/min) 4 Oxygen Delivery Method Room Air Weight: 100 lb 15.547 oz Body Mass Index (BMI) 21.8 Intake & Output: Intake and Output for Last 24 Hours 03/07/25 03/08/25 03/09/25 23:59 23:59 23:59 Intake Total 3326.5 / 3326.5 3175.08 / 3175.08 Output Total 350 / 350 1102 / 1102 Balance 2976.5 / 2976.5 2073.08 / 2073.08 Lab / Micro Data 03/09/25 05:40 03/09/25 05:40 Labs: Laboratory Results - last 24 hr 03/08/25 08:50: Crossmatch See Detail 03/08/25 18:30: Hgb 11.4 L, Hct 33.5 L 03/09/25 04:15: WBC Cancelled, Corrected WBC Cancelled, RBC Cancelled, Hgb Cancelled, Hct Cancelled, MCV Cancelled, MCH Cancelled, MCHC Cancelled, RDW Std Deviation Cancelled, RDW Coeff of Genaro Cancelled, Plt Count Cancelled, MPV Cancelled, Immature Gran % (Auto) Cancelled, Neut % (Auto) Cancelled, Lymph % (Auto) Cancelled, [place] % (Auto) Cancelled, Eos % (Auto) Cancelled, Baso % (Auto) Cancelled, Absolute Neuts (auto) Cancelled, Absolute Lymphs (auto) Cancelled, Total Counted Cancelled, Neutrophils % (Manual) Cancelled, Band Neutrophils % Cancelled, Lymphocytes % (Manual) Cancelled, Monocytes % (Manual) Cancelled, Eosinophils % (Manual) Cancelled, Basophils % (Manual) Cancelled, Metamyelocytes % Cancelled, Myelocytes % Cancelled, Promyelocytes % Cancelled, Blast Cells % Cancelled, Plasma Cell % (Manual) Cancelled, Other Cells % Cancelled, Nucleated RBC % Cancelled, Nucleated RBCs/100 WBC Cancelled, Differential Comment Cancelled, Diff Path Review Cancelled, Hypersegmented Neuts Cancelled, Atypical Lymphocytes Cancelled, Reactive Lymphocytes Cancelled, Smudge Cells Cancelled, Toxic Granulation Cancelled, Toxic Vacuolation Cancelled, Dohle Bodies Cancelled, Cate Rods Cancelled, Platelet Estimate Cancelled, Plt Morphology Comment Cancelled, RBC Morphology Cancelled 03/09/25 04:15: RBC Morphology Cancelled, Polychromasia Cancelled, Hypochromasia Cancelled, Basophilic Stippling Cancelled, Anisocytosis Cancelled, Microcytosis Cancelled, Macrocytosis Cancelled, Spherocytes Cancelled, Sickle Cells Cancelled, Target Cells Cancelled, Tear Drop Cells Cancelled, Ovalocytes Cancelled, Stomatocytes Cancelled, [place]ck Bodies Cancelled, Will Cells Cancelled, Bite Cells Cancelled, Crenated Cell Cancelled, Acanthocytes (Spur) Cancelled, Rouleaux Cancelled, Schistocytes Cancelled, Sodium Cancelled, Potassium Cancelled, Chloride Cancelled, Carbon Dioxide Cancelled, Anion Gap Cancelled, BUN Cancelled, Creatinine Cancelled, Estim Creat Clear Calc Cancelled, Est GFR (MDRD) Non-Af Cancelled, BUN/Creatinine Ratio Cancelled, Glucose Cancelled, Calcium Cancelled 03/09/25 05:40: WBC 14.4 H, RBC 3.43 L, Hgb 9.8 L, Hct 29.4 L, MCV 85.7, MCH 28.6, MCHC 33.3 D, RDW Std Deviation 50.4 H, RDW Coeff of Genaro 16.1 H, Plt Count 293, MPV 8.6, Immature Gran % (Auto) 1.600 H, Neut % (Auto) 76.4 H, Lymph % (Auto) 11.0 L, [place] % (Auto) 9.1, Eos % (Auto) 1.3, Baso % (Auto) 0.6, Absolute Neuts (auto) 11.0 H, Absolute Lymphs (auto) 1.59, Nucleated RBC % 0.1, Sodium 140, Potassium 3.9, Chloride 114 H, Carbon Dioxide 21.4, Anion Gap 4 L, BUN 21 H , Creatinine 0.60 L, Estim Creat Clear Calc 47.67 L, Est GFR (MDRD) Non-Af 97, B UN/Creatinine Ratio 34.3 H, Glucose 88, Calcium 6.0 L* Micro: Microbiology 03/08/25 08:09 Stool Stool Occult Blood (ELFEGO) - Final Physical Exam Const alert and oriented x3 Constitutional Narrative: frail, weak General Appearance: cooperative HEENT normocephalic, head/scalp atraumatic and hearing grossly normal bilaterally Eyes PERRL, EOMs intact bilaterally and conjunctivae normal Neck supple and no JVD Resp Resp Narrative: mildly diminished breath sounds bibasally, no wheezes or crackles. On room air now, was on 4L of oxygen earlier today Effort and Inspection: tachypneic Cardio regular rate, regular rhythm, S1 normal heart sound, S2 normal heart sound and no murmurs GI normal to inspection, nondistended, normoactive bowel sounds, soft to palpation and non-tender Extremity no clubbing, cyanosis or edema Neuro oriented x3, CN's II-XII intact bilaterally and moves all extremities Neuro Narrative: right BKA Sensorium / Orientation: awake and alert Motor Exam: strength 5/5 throughout Psych affect normal Assessment & Plan Assessment/Plan (1) GI bleed: PLAN: Plan #Acute on chronic anemia due to GI bleed * Hemoglobin was 5.8 on admission and is now 9.8 after transfusion of 2 units of PRBCs * CT of the abdomen and pelvis showed atherosclerotic plaque formation of the aorta and major visceral branches and sigmoid diverticulosis but no evidence of GI bleed * Transfused units of packed red blood cells in the ED. Placed on pantoprazole drip. * she had EGD which showed normal esophagus and acute gastritis which was biopsied. No gross lesions in the entire examined duodenum * Start hydration with IV fluid normal saline at 150 cc/h. * She did have EGD in December 2023 which showed nonsevere nonerosive esophagitis with no bleeding and mild gastritis with nonbleeding duodenal ulcer with no stigmata of bleeding. She had another EGD on 05/06/2024 which showed normal esophagus and medium amount of food residue in the stomach with no gross lesions in the second portion of the duodenum. * She is for colonoscopy tomorrow. Prep to be ordered as per GI. * #SIRS criteria: * WBCs has trended down to 14.4 today from 22.3 yesterday. * started empirically on IV cefepime due to concerns about possible aspiration. * was on 4L of oxygen today which she says she wears at baseline. She is now back on room air * will get CXR. GEt blood cultures. Complete at least 5 days of empiric antibiotics. * #Hypertension: On Lasix #Hyperlipidemia: On statin #History of TIA: Hold Plavix due to GI bleed. On statin #Depression and anxiety: On duloxetine, BuSpar and Ativan as well as mirtazapine and topiramate #History of GERD: On sucralfate and PPI DVT prophylaxis: SCDs. CODE STATUS:full code * Charges/Coding Visit Charges Inpatient E&M: 47172 Subs Hosp L2
--- NOTE | 2025-03-09 14:12 | RAD_ITS ---
PROCEDURE: CHEST 1 VIEW (PORTABLE) 03/09/2025 REASON FOR EXAM: HYPOXIA TECHNIQUE: Frontal view of the chest. COMPARISON: December 16, 2024. FINDINGS: Hardware: EKG electrodes are seen. Heart: The heart is nonenlarged. Lungs: Focal infiltrate in the right middle lobe. Hyperinflation. Bones: Prior multilevel screw and rinku fixation. RAD/Chest 1 View (Portable) IMPRESSION: Right middle lobe infiltrate. Reading Location: [place] [address]
[2025-03-09] MEDS: Polyethylene Glycol 3350 BOWEL PREP PO (17:19)
--- NOTE | 2025-03-09 17:30 | NURSING ---
Report called to nurse Dawn for pt to be transferred to PCU 113.
[2025-03-09 21:29] LABS: Hematocrit 33.0 % (37-47); Hemoglobin 10.8 g/dL (12.0-15.0)
[2025-03-09] MEDS: 0.9% Saline Lock 10 ML Syringe IV (23:14)
[2025-03-10] VITALS (18 sets, daily range): BP systolic 80–114; BP diastolic 44–83; PULSE 78–98; RESP 16–28; TEMP 36.1–36.8; O2SAT 95–100; BMI 21.4; BMI 21.6
[2025-03-10] MEDS: Albuterol 2.5 MG/3 ML VIAL.NEB. INHALATION ×2 (00:20→06:55)
[2025-03-10 00:30] LABS: Hematocrit 29.1 % (37-47); Hemoglobin 9.6 g/dL (12.0-15.0)
[2025-03-10 05:39] LABS: Hematocrit 29.1 % (37-47); Hemoglobin 9.8 g/dL (12.0-15.0); Immature Granulocytes Count 0.120 X10^3/uL (0.0-0.0); Mean Corp Hgb Conc 33.7 g/dL (32-36); Mean Corpuscular Volume 84.3 fL (81-99); Mean Platelet Vol. 8.9 fl (6.2-12.0); NRBC Flagged by Analyzer 0 % (0-5); Platelet Count 351 K/mm3 (150-450); RBC Distribution Width CV 16.8 % (11.6-14.6); RBC Distribution Width SD 52.0 fl (35.1-43.9); Red Blood Count 3.45 M/mm3 (4.2-5.4); White Blood Count 14.0 K/mm3 (4.4-11.0)
[2025-03-10 05:59] LABS: Partial Thromboplast Time 30.2 Seconds (24.1-36.2); Prothrombin Time (Protime)PT. 14.1 SECONDS (11.7-14.9)
[2025-03-10] MEDS: Cefepime HCl 1 GM in 0.9% Normal Saline (50mL MB+) 50 ML IV ×2 (06:08→22:53)
[2025-03-10 06:29] LABS: AST(SGOT) 36 U/L (<=31); Alanine Aminotransfer ALT/SGPT 40 U/L (<=34); Albumin, Serum 2.2 g/dL (3.4-4.8); Alkaline Phosphatase 174 U/L (35-104); Anion Gap 8 (5-15); BUN 11 mg/dL (4-19); BUN/Creat Ratio 22.0 RATIO (10-20); Bilirubin, Direct 0.15 mg/dL (0.00-0.30); Carbon Dioxide 20.4 mmol/L (21.0-32.0); Chloride 110 mmol/L (98-108); Estimated Creatinine Clearance 47.15 ml/min (50-250); Globulin 2.4 g/dL (2.2-4.2); Glucose 89 mg/dL (70-99); Potassium 3.2 mmol/L (3.3-5.1)
--- NOTE | 2025-03-10 06:29 | PCM.HOSP.N ---
Hospitalist Note Ca 6.5, will administer IV Ca.
[2025-03-10 06:36] LABS: Calcium,Total 6.4 mg/dL (7.6-11.0)
[2025-03-10] MEDS: Budesonide Respules 0.5 MG/2 ML AMPUL.NEB. INHALATION ×2 (06:55→19:26)
--- NOTE | 2025-03-10 09:58 | CASEMGMT ---
Social Work SW spoke with the patient and her . Patient reported no current concerns. Patient is waiting on her colonoscopy procedure this afternoon. Patient reported she is on 4 L oxygen at home and she uses [facility] for this service. AB Marx
[2025-03-10] MEDS: Pantoprazole Sodium 80 MG in 0.9% Normal Saline (100mL Bag) 80 ML 10 MG CONT INF ×2 (10:08→19:58)
[2025-03-10] MEDS: Calcium Gluconate IV 2 GM in 0.9% Normal Saline (100mL Bag) 100 ML IV (10:11)
[2025-03-10] MEDS: Lactated Ringers 1,000 ML 15 ML IV (10:41)
--- NOTE | 2025-03-10 10:52 | PRE.ANES_ITS ---
ASA Classification* ASA Classification ASA Classification: 3 Assessment & Plan Anesthesia* Anesthesia Assessment Anesthesia Assessment: Discussed sedation and/or anesthesia options, risks, benefits, and alternatives with patient/parents/legal guardian/POA. Questions invited. The patient/parents/legal guardian/POA seems to understand and agrees to proceed with anesthesia plan. Reviewed the physical assessment, medical history, allergy history and patient home medications list prior to surgery/procedure/anesthetic and documented any changes. Performed airway and anesthesia risk assessments. Anesthesia Type Anesthesia Type: MAC History Source History Obtained from:: Patient and Chart Anesthesia Focused Assessment* Temperature: 97.0 F Pulse Rate: 84 Blood Pressure: 109/66 Respiratory Rate: 16 Pulse Ox: 97 Oxygen Delivery Method: Nasal Cannula Oxygen Flow Rate (L/min): 3 Airway Assessment Mouth opens: >3 cm Mallampati Score: I Teeth Condition: Missing (Patient has multiple missing teeth. Remaining teeth are tight.) Neck Range of motion (ROM): Limited ROM (Slight Decrease) Labs Anesthesia Preop lab: CBC WBC, (4.4-11.0) 14.0 K/mm3 H Today, 05:23 RBC, (4.2-5.4) 3.45 M/mm3 L Today, 05:23 Hgb, (12.0-15.0) 9.8 g/dL L Today, 05:23 Hct, (37-47) 29.1 % L Today, 05:23 Plt Count, (150-450) 351 K/mm3 Today, 05:23 CHEMISTRY Potassium, (3.3-5.1) 3.2 mmol/L L Today, 05:23 Sodium, (133-145) 138 mmol/L Today, 05:23 Magnesium, (1.6-2.6) 1.6 mg/dL 05/26/24, 02:15 Phosphorus, (2.5-4.9) 2.6 mg/dL 05/26/24, 02:15 BUN, (4-19) 11 mg/dL Today, 05:23 Creatinine, (0.70-1.20) 0.50 mg/dL L Today, 05:23 Glucose, (70-99) 89 mg/dL Today, 05:23 POC Glucose, (74-106) 123 mg/dL H 05/27/24, 05:29 TSH, (0.300-4.200) 1.600 uIU/mL 08/25/24, 10:50 COAG PT, (11.7-14.9) 14.1 SECONDS Today, 05:23 Pre-Assessment Diagnosis/Proposed Procedure Planned Operative Procedure(s): Colonoscopy Anesthesia History 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 When Was Last Pacemaker Check QUESTION #4 FULL TEXT: You/Your Family Experience fever (hyperthermia) with Anesthesia Last Oral Intake Last Oral intake: Last Oral Intake NPO since 00:00 03/10/25 00:21 Meds taken in AM with sips of Yes 03/10/25 00:21 water? Meds patient instructed to bowel prep 03/10/25 00:21 take am of surgery PONV PONV - ocean freight forwarder: PONV - ocean freight forwarder Female HX of Motion Sickness HX of N/V After Surgery Non-Smoker Duration of Surgery greater than 60 minutes Number of Risk Factors PONV Score Height & Weight Height & Weight: Anesthesia: Height & Weight Height 4 ft 9 in 03/10/25 00:21 Weight: 45 kg 03/10/25 06:00 Body Mass Index (BMI) 21.4 03/10/25 06:00 Respiratory Assessment Respiratory Assessment - ocean freight forwarder: Respiratory Tract Infection Hx - ocean freight forwarder Hx Respiratory Tract Infection Yes: Histoplasmosis. Patient is on antibiotics. 03/10/25 00:21 STOP Sleep Apnea STOP Sleep Apnea - ocean freight forwarder: STOP Sleep Apnea - ocean freight forwarder Hx Hypertension Yes 03/09/25 16:00 Hx Sleep Apnea Yes 03/09/25 09:11 CPAP Yes 03/09/25 08:55 BIPAP No 03/08/25 12:48 Do you snore loudly (louder than talking or can be heard Do you often feel tired/ fatigued/ sleepy during daytime? Has anyone observed you stop breathing during sleep? STOP Results Positive 03/09/25 08:55 QUESTION #5 FULL TEXT : Do you snore loudly (louder than talking or can be heard through closed doors)? 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 Specify any problems Hx of Preganancy in last 3 No 03/08/25 12:48 Months Nurse Filling Out Transfusion DSLOAN 03/08/25 12:48 & Questions: Date: 03/08/25 03/08/25 12:48 Time: 12:50 03/08/25 12:48 Patient unable to answer at this time (ie. confused, unrespo /Reproduction History /Reproductive History - ocean freight forwarder: /Reproductive Hx- ocean freight forwarder Hx Now No 03/10/25 00:21 Gestational Age (in weeks): EDC: Hx Hx Para Hx Section SAB No 03/10/25 00:21 Does the father of the baby or his family experience fever w Father of the baby Malignant Hypertension history comment Active Medications Active Medications: Current Medications Generic Name Dose Route Start Last Admin Trade Name Freq PRN Reason Stop Dose Admin Acetaminophen 500 mg 03/08/25 14:42 Acetaminophen 500 Mg Tablet PO Q6H PRN pain Albuterol Sulfate 2.5 mg 03/08/25 14:48 03/10/25 06:55 Albuterol 2.5 Mg/3 Ml Vial.Neb. INHALATION 2.5 mg Q4H PRN Administration COPD Albuterol/Ipratropium 3 ml 03/08/25 14:42 03/09/25 13:09 Ipratropium/Albuterol Sulfate 3 Ml Ampul.Neb INHALATION 3 ml Q4H PRN Administration shortness of breath or wheezing Atorvastatin Calcium 80 mg 03/08/25 22:00 03/09/25 23:13 Atorvastatin Calcium 80 Mg Tablet PO 80 mg QHS JESSICA Administration Budesonide 0.5 mg 03/08/25 15:15 03/10/25 06:55 Budesonide Respules 0.5 Mg/2 Ml Ampul.Neb. INHALATION 0.5 mg Q12H.RT JESSICA Administration Buspirone HCl 10 mg 03/08/25 22:00 03/09/25 23:22 Buspirone 5 Mg Tablet PO 10 mg BID JESSICA Administration Cyclobenzaprine HCl 10 mg 03/08/25 22:00 03/09/25 23:13 Cyclobenzaprine Hcl 10 Mg Tablet PO 10 mg QHS JESSICA Administration Duloxetine HCl 60 mg 03/08/25 22:00 03/09/25 23:22 Duloxetine Hcl 60 Mg Capsule PO 60 mg BID JESSICA Administration Furosemide 60 mg 03/09/25 10:00 03/09/25 10:28 Furosemide 20 Mg Tablet PO 60 mg DAILY JESSICA Administration Protocol Hydroxyzine HCl 50 mg 03/08/25 22:00 03/09/25 23:22 Hydroxyzine 10 Mg Tablet PO 50 mg QHS JESSICA Administration Pantoprazole Sodium 80 mg/ 100 mls @ 10 mls/hr 03/08/25 08:10 03/10/25 10:08 Sodium Chloride CONT INF 10 mls/hr Q10H JESSICA Administration Sodium Chloride 250 mls @ 15 mls/hr 03/08/25 12:38 IV .[id number] PRN Saline Flush Sodium Chloride 250 mls @ 15 mls/hr 03/08/25 12:38 IV .[id number] PRN Additional IVPB Infusion Cefepime HCl 1 gm/ Sodium 50 mls @ 100 mls/hr 03/09/25 07:35 03/10/25 06:38 Chloride IV Infused Q8 JESSICA Infusion Lactated Ringer's 1,000 mls @ 15 mls/hr 03/09/25 08:15 03/10/25 10:41 IV 15 mls/hr .Q48H JESSICA Administration Levothyroxine Sodium 75 mcg 03/09/25 06:00 03/10/25 06:08 Levothyroxine 75 Mcg Tablet PO Not Given MOTUWETHFR JESSICA Levothyroxine Sodium 50 mcg 03/11/25 06:00 Levothyroxine 50 Mcg Tablet PO SUSA JESSICA Liothyronine Sodium 10 mcg 03/09/25 06:00 03/10/25 06:08 Liothyronine 5 Mcg Tablet PO Not Given DAILY@0600 JESSICA Lorazepam 1 mg 03/08/25 22:00 03/10/25 06:08 Lorazepam 1 Mg Tablet PO Not Given TID JESSICA Metoprolol Tartrate 25 mg 03/08/25 14:45 03/09/25 23:13 Metoprolol Tartrate 25 Mg Tablet PO 25 mg Q12 JESSICA Administration Protocol Montelukast Sodium 10 mg 03/08/25 21:00 03/09/25 23:13 Montelukast 10 Mg Tablet PO 10 mg QPM JESSICA Administration Nitroglycerin 0.4 mg 03/08/25 14:45 Nitroglycerin (Inpatient Use) 0.4 Mg Tab.Subl SL Q5M PRN CARDIAC/CHEST PAIN Ondansetron HCl 4 mg 03/08/25 14:45 03/09/25 23:57 Ondansetron 4 Mg/2 Ml Vial IV 4 mg Q8H PRN PRN Administration NAUSEA/VOMITING Quetiapine Fumarate 50 mg 03/08/25 22:00 03/09/25 23:23 Quetiapine 25 Mg Tablet PO 50 mg QHS JESSICA Administration Sodium Chloride 10 - 40 ml 03/08/25 12:38 03/09/25 23:58 0.9 % Nacl (Sterile) Posiflush 10 Ml IV 10 ml UD PRN Administration Port access or dressing change Sodium Chloride 10 - 40 ml 03/08/25 12:38 03/09/25 23:14 0.9% Saline Lock 10 Ml Syringe IV 10 ml UD PRN Administration Midline Flush Sodium Chloride 10 - 40 ml 03/08/25 12:38 0.9% Saline Lock 10 Ml Syringe IV UD PRN SALINE FLUSH Topiramate 50 mg 03/08/25 14:45 03/09/25 10:30 Topiramate 50 Mg Tablet PO 50 mg DAILY JESSICA Administration [facility] Medical History Stroke/cerebrovascular accident Confusion Asthma exacerbation in COPD Respiratory syncytial virus (RSV) Microcytic anemia RSV infection PTSD (post-traumatic stress disorder) Hyperthyroidism GI bleed Former smoker CPAP (continuous positive airway pressure) dependence On home oxygen therapy Myocardial infarct Congestive heart failure (CHF) Migraines Fall Contusion of nose Periorbital contusion of right eye Contusion of multiple fingers Chronic hypoxic respiratory failure Contusion of scalp Pneumonia Acute and chronic respiratory failure with hypoxia Normocytic anemia Acute exacerbation of chronic obstructive pulmonary disease (COPD) Fibromyalgia Chronic respiratory failure with hypoxia RAUL (obstructive sleep apnea) Incisional hernia TIA (transient ischemic attack) Osteoporosis Osteoarthritis Thyroid disorder Diverticulitis History of heart attack Sleep apnea History of pneumonia COPD (chronic obstructive pulmonary disease) History of bronchitis Asthma HTN (hypertension) Depression Anxiety Nausea and vomiting GERD (gastroesophageal reflux disease) Heart disease spinal stimulator Spinal stenosis Chronic back pain Hypothyroidism Home Medications ?Medication ?Instructions ?Recorded ?Last Taken ?Type atorvastatin 80 mg tablet 80 mg PO QHS cholesterol 09/0705/25/14 History 80 MG clopidogrel 75 mg tablet 75 mg PO DAILY anti platelet 06/01/13 11/18/23 History duloxetine 60 mg capsule,delayed 60 mg PO BID DEPRESSI ON 06/19/20 Unknown History release furosemide 40 mg tablet 60 mg PO DAILY water pill Unknown History liothyronine 5 mcg tablet 10 mcg PO DAILY HYPOTHYROIDI SM 08/23/22 Unknown History pantoprazole 40 mg tablet,delayed 40 mg PO BID ACID RE FLEX 30 days 05/06/23 Unknown Rx release #60 tabs metoprolol tartrate 25 mg tablet 25 mg PO Q12H blood p ressure 10/09/23 Unknown History acetaminophen 500 mg tablet 500 mg PO Q6H PRN pain 03/20 Unknown History buspirone 10 mg tablet 10 mg PO BID ANXIETY 4 Unknown History diclofenac sodium 75 mg 75 mg PO BID see phyisican 1 Unknown History tablet,delayed release ipratropium 0.5 mg-albuterol 3 mg 3 ml inhalation .Q4- 6H PRN 03/11/24 Unknown History (2.5 mg base)/3 mL nebulization shortness of breath or wheezing soln levothyroxine 50 mcg tablet 50 mcg PO SUSA thyroid Unknown History levothyroxine 75 mcg tablet 75 mcg PO MOTUWETHFR THYRO ID 03/11/24 Unknown History mometasone-formoterol HFA 200 2 puff inhalation BID CO PD 04/26/24 Unknown History mcg-5 mcg/actuation aerosol inhaler (Dulera) cholecalciferol (vitamin D3) 1,250 1,250 mcg PO QWEEK bones 05/22/24 Unknown History mcg (50,000 unit) capsule hydroxyzine HCl 50 mg tablet 50 mg PO QHS anxiety 04/29 Unknown History albuterol sulfate 90 mcg/actuation 2 puff inhalation Q 4H PRN COPD #1 06/13/24 Unknown Rx aerosol inhaler device lorazepam 1 mg tablet 1 mg PO TID anxiety 11/15/24 Unknown History mupirocin 2 % topical ointment 1 applic topical BID in fection 11/15/24 Unknown History quetiapine 50 mg tablet 50 mg PO QHS 11/15/24 Unknow n History tiotropium bromide 2.5 2 inh inhalation DAILY LUNGS #3 ea 11/15/24 Unknown Rx mcg/actuation mist for inhalation (Spiriva Respimat) topiramate 50 mg tablet 50 mg PO QDAY 11/15/24 Unkno wn History cyclobenzaprine 10 mg tablet 10 mg PO QHS 11/25/24 Unk nown History montelukast 10 mg tablet 10 mg PO QPM allergies #90 t abs 01/30/25 Unknown Rx OXYGEN - Supplemental ([facility] Pulmonary Information 03/08 Unknown History INFORMATIONAL USE ONLY) itraconazole 100 mg capsule 200 mg PO BID health maint enance 03/10/25 Unknown History Allergy/AdvReac Type Severity Reaction Status Date / Time cefaclor (From Ceclor) Allergy Itching Verified 01/05/25 10:41 clarithromycin Allergy Hives Verified 01/05/25 10:41 doxycycline Allergy Itching Verified 01/05/25 10:41 Penicillins Allergy Hives Verified 01/05/25 10:41 Sulfa (Sulfonamide Allergy Hives Verified 01/05/25 10:41 Antibiotics) zolpidem (From Ambien) AdvReac Unknown mental Verified 01/05/25 10:41 issues Family History Father Asthma Heart disease Grandmother Breast cancer Diabetes Mother Heart disease COPD (chronic obstructive pulmonary disease) Other Cancer Surgical History Hx of BKA History of appendectomy History of incisional hernia repair History of incisional hernia repair (~12/20/18) Hx of cholecystectomy History of esophagogastroduodenoscopy (EGD) (~07/2018) Previous back surgery S/P hysterectomy S/P carpal tunnel release S/P knee surgery S/P correction of deviated nasal septum Status post thyroidectomy H/O heart artery stent Status post amputation of right foot Social History household members: spouse housing: house Smoking Status: Light Smoker (<10/day) Tobacco: How many years used: 25 second hand exposure: Yes alcohol intake: never substance use type: does not use caffeine: Yes what type of physical activity do you participate in: none frequency: does not exercise Review of Systems (Anesthesia) ROS Narrative System reviewed and no additional complaints, except as documented.
--- NOTE | 2025-03-10 11:38 | PCM.PN.BLA ---
Progress Note Patient completed her prep for colonoscopy. She did receive 3 soapsuds enemas this morning. As per nursing she is clear at this time for colonoscopy. Physical Exam Const alert, oriented x3, no apparent distress and healthy appearing General Appearance: cooperative GI normal to inspection, nondistended, normoactive bowel sounds, soft to palpation, non-tender and non-distended Percussion: normal to percussion Rectal Exam: deferred Assessment & Plan Assessment/Plan (1) GI bleed: PLAN: She was explained alternatives, risk and benefits include not withstanding bleeding, fracture, sepsis, perforation, emergent urgent . She will need to undergo colonoscopy. And she will have an ASA of 3. Visit Charges Inpatient E&M: 54076 Subs Hosp L2
--- NOTE | 2025-03-10 12:15 | COLBX_PTH ---
PATIENT: TAJ BLANK LOC: [facility] U#:[id number] AGE/SX: 69/F ROOM: [facility] RE03/08/[address]: Dr. Le Alba MD : 1955 BED: 1 DIS: 03/12/2025 SPEC #: [id number] RECD: 03/10/25 14:05 STATUS: MADHU FARSHAD #: [id number] DAYDAY: 03/10/25 12:[address]: Sree Diggs DEPT: SURGICAL PATHOLOGY RECD BY: Will Serrano ENTERED: 03/10/25 14:22 SP TYPE: COLON BX OTHR DR: DO Dr. Le Nguyen MD Dr. Prakash Chand, MD Heather Evans, CELL LINER-C Yadira Dawson, CELL LINER-C MARIA M Liu Tissues: A - Cecum, NOS B - COLON BIOPSY Procedures: Immunohistochemical Stains Surgery Specimen Level IV HEADER OPERATION: Colonoscopy, biopsy PRE-OP DIAGNOSIS: GI bleed TISSUE SUBMITTED: A- Cecum biopsy, B- Random colonic biopsy MICROSCOPIC DIAGNOSIS A. Cecum, biopsy: * Active colitis with mucosal erosion granulation tissue and fibrinous exudate (See comment) B. Colon , random biopsy: * Active colitis with mucosa erosion, granulation tissue and fibrinous exudate (See comment) COMMENT The sections show areas of active cryptitis with involvement of the surface epithelium with mucosal erosion, granulation tissue and fibrinous exudate. There are no granulomas or areas of dysplasia. The findings are not specific and may be seen in infections, medication-induced injury, ischemia and inflammatory bowel disease. Clinical correlation is recommended. Staining for CMV is in progress and will be reported as an addendum. MICROSCOPIC DESCRIPTION Slides are reviewed. GROSS DESCRIPTION A. Received in fixative is one container labeled with the patient's name and designated Cecum biopsy. The specimen consists of multiple irregular fragments of benson tissue that in aggregate measure 1.1 x 0.6 x 0.1 cm. The specimen is totally submitted in one cassette. B. Received in fixative is one container labeled with the patient's name and designated Random colon biopsy. The specimen consists of three irregular fragments of benson tissue that measure 0.1 to 0.4 cm. The specimen is totally submitted in one cassette. IN 03/10/2025 CPT:52393o1,86691n0 ADDENDUM ADDENDUM ADDENDUM ADDENDUM ADDENDUM ADDENDUM ADDENDUM ADDENDUM 03/15/2025 14:52 ADDENDUM 03/15/2025 14:52 ADDENDUM 03/15/2025 14:52 ADDENDUM 03/15/2025 14:52 ADDENDUM 03/15/2025 14:52 The CMV stains are negative (blocks A & B) All matched controls reacted appropriately. These tests were developed and their performance characteristics determined by [facility]. They may not have been cleared or approved by the U.S. Food and Drug Administration.The FDA has determined that such clearance or approval is not necessary. The above immunohistochemical markers are viewed by the Pathologist.
--- NOTE | 2025-03-10 12:21 | PCM.POST.ANE ---
Anesthesia: Postop Eval I Current Vital Signs Temperature: 97 F Pulse Rate: 95 Blood Pressure: 105/77 Respiratory Rate: 18 Pulse Ox: 95 Assessment Airway patent: Yes Spontaneous unlabored respirations: Yes nausea: No Vomiting: No Anesthesia Complication: No Fluid Hydration Crystalloid volume administer (ml): 500 Total IV fluid infused: 500 Progress Note Anesthesia document: Postop Eval 1 completed: Yes
--- NOTE | 2025-03-10 12:25 | OP.COLON_ITS ---
Patient Name: Codi Owen Procedure Date: 03/10/2025 11:39 AM Date of : 1955 Age: 69 Procedure: Colonoscopy Indications: Hematochezia, Acute post hemorrhagic anemia Providers: Sree Diggs DO Medicines: Monitored Anesthesia Care Patient Profile: This is a 69 year old female. Refer to note in patient chart for documentation of history and physical. Last Colonoscopy: several years ago. Complications: No immediate complications. Procedure: Pre-Anesthesia Assessment: - Prior to the procedure, a History and Physical was performed, and patient medications and allergies were reviewed. The patient is competent. The risks and benefits of the procedure and the sedation options and risks were discussed with the patient. All questions were answered and informed consent was obtained. Patient identification and proposed procedure were verified by the physician in the pre-procedure area. Mental Status Examination: alert and oriented. Airway Examination: normal oropharyngeal airway and neck mobility. Respiratory Examination: clear to auscultation. CV Examination: normal. Prophylactic Antibiotics: The patient does not require prophylactic antibiotics. Prior Anticoagulants: The patient has taken no anticoagulant or antiplatelet agents except for NSAID medication. ASA Grade Assessment: II - A patient with mild systemic disease. After reviewing the risks and benefits, the patient was deemed in satisfactory condition to undergo the procedure. The anesthesia plan was to use monitored anesthesia care (MAC). Immediately prior to administration of medications, the patient was re-assessed for adequacy to receive sedatives. The heart rate, respiratory rate, oxygen saturations, blood pressure, adequacy of pulmonary ventilation, and response to care were monitored throughout the procedure. The physical status of the patient was re-assessed after the procedure. After I obtained informed consent, the scope was passed under direct vision. Throughout the procedure, the patient's blood pressure, pulse, and oxygen saturations were monitored continuously. The Colonoscope was introduced through the anus and advanced to the cecum, identified by appendiceal orifice and ileocecal valve. The colonoscopy was performed without difficulty. The patient tolerated the procedure well. The quality of the bowel preparation was fair. The ileocecal valve, appendiceal orifice, and rectum were photographed. Scope In: 11:52:56 AM Scope Withdrawal Time 0 hours 5 minutes 36 seconds Scope Out: 12:15:41 PM Total Procedure Duration Time 0 hours 22 minutes 45 seconds Findings: The perianal and digital rectal examinations were normal. Diffuse severe inflammation characterized by deep ulcerations was found in the recto-sigmoid colon, in the sigmoid colon, in the descending colon, at the splenic flexure, in the transverse colon, at the hepatic flexure, in the ascending colon and in the cecum. Biopsies were taken with a cold forceps for histology. Verification of patient identification for the specimen was done. Estimated blood loss was minimal. Multiple small and large-mouthed diverticula were found in the recto-sigmoid colon, sigmoid colon and descending colon. Stool was found in the rectum, in the recto-sigmoid colon, in the sigmoid colon, at the splenic flexure and in the cecum. Impression: - Preparation of the colon was fair. - Diffuse severe inflammation was found in the recto-sigmoid colon, in the sigmoid colon, in the descending colon, at the splenic flexure, in the transverse colon, at the hepatic flexure, in the ascending colon and in the cecum secondary to pancolitis. Biopsied. - Diverticulosis in the recto-sigmoid colon, in the sigmoid colon and in the descending colon. - Stool in the rectum, in the recto-sigmoid colon, in the sigmoid colon, at the splenic flexure and in the cecum. - Differential diagnosis includes severe ischemic or Crohn's colitis Recommendation: - Discharge patient to home. - Resume previous diet. - Continue present medications. - Await pathology results. - Repeat colonoscopy in 6 months for surveillance based on pathology results. Procedure Code(s): --- Professional --- 49805, Colonoscopy, flexible; with biopsy, single or multiple CPT copyright 2021 [employer]. All rights reserved. The codes documented in this report are preliminary and upon scientific investigator review may be revised to meet current compliance requirements. Sree Diggs DO 03/10/2025 12:25:04 PM This report has been signed electronically. Number of Addenda: 0 Note Initiated On: 03/10/2025 11:39 AM
--- NOTE | 2025-03-10 12:25 | OP.PROVAT_ITS ---
03/10/2025 Chrystal Michel [address] [place] [address] Re : Colonoscopy procedure for Codi Owen Dear Dr. Michel This procedure was performed on Monday, March 10, 2025. My impressions and recommendations are as follows: Impressions : - Preparation of the colon was fair. - Diffuse severe inflammation was found in the recto-sigmoid colon, in the sigmoid colon, in the descending colon, at the splenic flexure, in the transverse colon, at the hepatic flexure, in the ascending colon and in the cecum secondary to pancolitis. Biopsied. - Diverticulosis in the recto-sigmoid colon, in the sigmoid colon and in the descending colon. - Stool in the rectum, in the recto-sigmoid colon, in the sigmoid colon, at the splenic flexure and in the cecum. - Differential diagnosis includes severe ischemic or Crohn's colitis Recommendations : - Discharge patient to home. - Resume previous diet. - Continue present medications. - Await pathology results. - Repeat colonoscopy in 6 months for surveillance based on pathology results. My findings are described in the full procedure note, which is enclosed. If I can be of further assistance, please feel free to contact me at . Sincerely, Sree Diggs DO 03/10/2025 12:25:04 PM This report has been signed electronically.
--- NOTE | 2025-03-10 12:46 | PN_ITS ---
Subjective Subjective Patient seen and examined with her nurse by bedside. She had no complaints. She for colonoscopy today. Review of systems otherwise negative. She remains on 4 L of oxygen. She has otherwise remained hemodynamically stable. Objective Data Objective Data Vital Signs: Vital Signs Temp Pulse Resp BP Pulse Ox O2 Del Method O2 Flow Rate 97.8 F 85 16 114/83 H 98 Nasal Cannula 4 03/10/25 12:40 03/10/25 12:40 03/10/25 12:40 03/10/25 12:40 03/10/25 12:40 03/10/25 12:40 03/10/25 12:40 Oxygen Flow Rate (L/min) 4 Oxygen Delivery Method Nasal Cannula Weight: 99 lb 3.328 oz Body Mass Index (BMI) 21.4 Intake & Output: Intake and Output for Last 24 Hours 03/08/25 03/09/25 03/10/25 23:59 23:59 23:59 Intake Total 3326.5 / 3326.5 4833.75 / 4833.75 270 / 270 Output Total 350 / 350 3202 / 3202 Balance 2976.5 / 2976.5 1631.75 / 1631.75 270 / 270 Lab / Micro Data 03/10/25 05:23 03/10/25 05:23 Labs: Laboratory Results - last 24 hr 03/09/25 21:11: Hgb 10.8 L, Hct 33.0 L 03/10/25 00:22: Hgb 9.6 L, Hct 29.1 L 03/10/25 05:23: WBC 14.0 H, RBC 3.45 L, Hgb 9.8 L, Hct 29.1 L, MCV 84.3, MCH 28.4, MCHC 33.7, RDW Std Deviation 52.0 H, RDW Coeff of Genaro 16.8 H, Plt Count 351, MPV 8.9, Immature Gran % (Auto) 0.900, Neut % (Auto) 78.5 H, Lymph % (Auto) 11.2 L, [place] % (Auto) 7.5, Eos % (Auto) 1.4, Baso % (Auto) 0.5, Absolute Neuts (auto) 11.0 H, Absolute Lymphs (auto) 1.57, Nucleated RBC % 0, PT 14.1, INR 1.1, APTT 30.2, Sodium 138, Potassium 3.2 L, Chloride 110 H, Carbon Dioxide 20.4 L, Anion Gap 8, BUN 11, Creatinine 0.50 L, Estim Creat Clear Calc 47.15 L, Est GFR (MDRD) Non-Af 101, BUN/Creatinine Ratio 22.0 H, Glucose 89, Calcium 6.4 L*, Total Bilirubin 0.24, Direct Bilirubin 0.15, AST 36 H, ALT 40 H, Alkaline Phosphatase 174 H, Total Protein 4.6 L, Albumin 2.2 L, Globulin 2.4 Micro: Microbiology 03/08/25 08:09 Stool Stool Occult Blood (ELFEGO) - Final Radiography Diagnostic Testing: Radiology Impression Chest X-Ray 03/09/25 14:12 IMPRESSION: Right middle lobe infiltrate. Reading Location: [place] [id number] Physical Exam Const alert and oriented x3 Constitutional Narrative: frail, weak General Appearance: cooperative HEENT normocephalic, head/scalp atraumatic and hearing grossly normal bilaterally Eyes PERRL, EOMs intact bilaterally and conjunctivae normal Neck supple Resp Resp Narrative: mildly diminished breath sounds bibasally, no wheezes or crackles. On 4L of oxygen by nasal canula Effort and Inspection: tachypneic Cardio regular rate, regular rhythm, S1 normal heart sound, S2 normal heart sound and no murmurs GI normal to inspection, nondistended, normoactive bowel sounds, soft to palpation and non-tender Extremity no clubbing, cyanosis or edema Neuro oriented x3, CN's II-XII intact bilaterally and moves all extremities Neuro Narrative: right BKA Sensorium / Orientation: awake and alert Motor Exam: general weakness Psych affect normal Appearance: appropriate Assessment & Plan Assessment/Plan (1) GI bleed: PLAN: Plan #Acute on chronic anemia due to GI bleed * Hemoglobin was 5.8 on admission and is now 9.8 after transfusion of 2 units of PRBCs * CT of the abdomen and pelvis showed atherosclerotic plaque formation of the aorta and major visceral branches and sigmoid diverticulosis but no evidence of GI bleed * Transfused units of packed red blood cells in the ED. Placed on pantoprazole drip. * she had EGD which showed normal esophagus and acute gastritis which was biopsied. No gross lesions in the entire examined duodenum * She did have EGD in December 2023 which showed nonsevere nonerosive esophagitis with no bleeding and mild gastritis with nonbleeding duodenal ulcer with no stigmata of bleeding. She had another EGD on 05/06/2024 which showed normal esophagus and medium amount of food residue in the stomach with no gross lesions in the second portion of the duodenum. * She is for colonoscopy today * #SIRS criteria: * WBCs is down to 14 today. * started empirically on IV cefepime due to concerns about possible aspiration. * Chest x-ray did show a right middle lobe infiltrate. She is on 4 L of oxygen which she says is at baseline. * Blood cultures pending. * On IV cefepime. * #Hypertension: On Lasix #Hyperlipidemia: On statin #History of TIA: Hold Plavix due to GI bleed. On statin #Depression and anxiety: On duloxetine, BuSpar and Ativan as well as mirtazapine and topiramate #History of GERD: On sucralfate and PPI DVT prophylaxis: SCDs. CODE STATUS:full code * Charges/Coding Visit Charges Inpatient E&M: 09444 Subs Hosp L2
--- NOTE | 2025-03-10 13:04 | CASEMGMT ---
Social Work SW spoke with the patient and her . Patient reported she did not need anything. Patient is waiting on her colonoscopy procedure this afternoon. Patient reported she is on 4 L oxygen at home and she uses [facility] for this service. AB Marx
--- NOTE | 2025-03-10 13:26 | POSTOPAN2_ITS ---
Anesthesia Postop Eval I Sum Postop Eval Completion status Anesthesia document: Postop Eval 1 completed: Yes Anesthesia Postop Eval I Summary Anesthesia Postop Eval I Summary: Anesthesia Postop Eval I: Assessment Summary Airway patent Yes 03/10/25 12:22 CONCRETING [email or web address] Spontaneous unlabored Yes 03/10/25 12:22 CONCRETING SUPERVISOR.[email or web address] respirations Mental status Awake 03/09/25 13:05 CONCRETING [email or web address] nausea No 03/10/25 12:22 CONCRETING SUPERVISOR.CSIR Vomiting No 03/10/25 12:22 CONCRETING SUPERVISOR.CSIR Anesthesia Postop Eval I: Fluid Summary Crystalloid volume administer 500 03/10/25 12:22 CONCRETING SUPERVISOR.CSIR (ml) Colloids volume administered ( ml) Blood Product volume administered (ml) Total IV fluid infused 500 03/10/25 12:22 CONCRETING [email or web address].CSIR Anesthesia Postop Eval I: Summary Notes Anesthesia Complication No 03/10/25 12:22 CONCRETING [email or web address] Anesthesia Complication Comment: Post-operative progress note Anesthesia: Postop Eval II Evaluation Mental status: Awake and Calm Pain Level: 0 nausea: No Vomiting: No Complications Anesthesia Complication: No
--- NOTE | 2025-03-10 13:26 | PCM.POSTANE2 ---
Anesthesia Postop Eval I Sum Postop Eval Completion status Anesthesia document: Postop Eval 1 completed: Yes Anesthesia Postop Eval I Summary Anesthesia Postop Eval I Summary: Anesthesia Postop Eval I: Assessment Summary Airway patent Yes 03/10/25 12:22 DISTILLERY [email or web address] Spontaneous unlabored Yes 03/10/25 12:22 DISTILLERY MANAGER.CSIR respirations Mental status Awake 03/09/25 13:05 DISTILLERY [email or web address] nausea No 03/10/25 12:22 DISTILLERY MANAGER.CSIR Vomiting No 03/10/25 12:22 DISTILLERY MANAGER.CSIR Anesthesia Postop Eval I: Fluid Summary Crystalloid volume administer 500 03/10/25 12:22 DISTILLERY MANAGER.CSIR (ml) Colloids volume administered ( ml) Blood Product volume administered (ml) Total IV fluid infused 500 03/10/25 12:22 DISTILLERY MANAGER.CSIR Anesthesia Postop Eval I: Summary Notes Anesthesia Complication No 03/10/25 12:22 DISTILLERY MANAGER.CSIR Anesthesia Complication Comment: Post-operative progress note Anesthesia: Postop Eval II Evaluation Mental status: Awake and Calm Pain Level: 0 nausea: No Vomiting: No Complications Anesthesia Complication: No
[2025-03-10] MEDS: Potassium Chloride Oral Tablet 20 MEQ 40 MEQ PO (13:32)
[2025-03-10] MEDS: ITRACONAZOLE 100 MG CAPSULE 200 MG PO ×2 (13:34→22:42)
--- NOTE | 2025-03-10 15:24 | CASEMGMT ---
Social Work SW spoke with the patient. SW asked the patient if she has any safety concerns at home. Patient stated no. SW asked patient if she has any concerns at home. Patient stated no. SW asked the patient if she feels safe at home. Patient stated yes. SW asked if the patient needs help with anything. Patient stated no. AB Marx
[2025-03-10] MEDS: 0.9% Saline Lock 10 ML Syringe IV (22:58)
[2025-03-11] VITALS (11 sets, daily range): BP systolic 96–108; BP diastolic 52–64; PULSE 75–102; RESP 14–20; TEMP 36.4–36.8; O2SAT 94–99; BMI 21.4
--- NOTE | 2025-03-11 01:28 | ANES.CONFIRM ---
Anesthesia: Confirm Documents Multiple Procedures on Account (2) Confirmed Documents: Yes
[2025-03-11] MEDS: Pantoprazole Sodium 80 MG in 0.9% Normal Saline (100mL Bag) 80 ML 10 MG CONT INF (05:36)
[2025-03-11 05:46] LABS: Hematocrit 28.4 % (37-47); Hemoglobin 9.3 g/dL (12.0-15.0); Immature Granulocytes Count 0.060 X10^3/uL (0.0-0.0); Mean Corp Hgb Conc 32.7 g/dL (32-36); Mean Corpuscular Volume 87.4 fL (81-99); Mean Platelet Vol. 8.6 fl (6.2-12.0); NRBC Flagged by Analyzer 0 % (0-5); Platelet Count 354 K/mm3 (150-450); RBC Distribution Width CV 17.2 % (11.6-14.6); RBC Distribution Width SD 55.0 fl (35.1-43.9); Red Blood Count 3.25 M/mm3 (4.2-5.4); White Blood Count 8.6 K/mm3 (4.4-11.0)
[2025-03-11 06:20] LABS: Anion Gap 8 (5-15); BUN 7 mg/dL (4-19); BUN/Creat Ratio 10.0 RATIO (10-20); Calcium,Total 7.8 mg/dL (7.6-11.0); Carbon Dioxide 22.1 mmol/L (21.0-32.0); Chloride 107 mmol/L (98-108); Estimated Creatinine Clearance 47.15 ml/min (50-250); Glucose 88 mg/dL (70-99); Potassium 4.6 mmol/L (3.3-5.1)
[2025-03-11] MEDS: Budesonide Respules 0.5 MG/2 ML AMPUL.NEB. INHALATION (07:08)
[2025-03-11] MEDS: Cefepime HCl 1 GM in 0.9% Normal Saline (50mL MB+) 50 ML IV ×2 (09:59→20:54)
[2025-03-11] MEDS: 0.9 % NaCl (Sterile) Posiflush 10 mL IV ×2 (09:59→20:57)
[2025-03-11] MEDS: ITRACONAZOLE 100 MG CAPSULE 200 MG PO ×2 (10:01→20:53)
--- NOTE | 2025-03-11 10:26 | PCM.PROGNOTE ---
Subjective Subjective Patient seen and examined. She has no active complaints. She had an uneventful night. Review of systems is otherwise negative. HR is 102. She is on 4L of oxygen. Objective Data Objective Data Vital Signs: Vital Signs Temp Pulse Resp BP Pulse Ox O2 Del Method O2 Flow Rate 98.3 F 102 H 19 H 108/64 96 Nasal Cannula 4 03/11/25 09:56 03/11/25 10:02 03/11/25 09:56 03/11/25 09:56 03/11/25 09:56 03/11/25 09:56 03/11/25 09:56 Oxygen Flow Rate (L/min) 4 Oxygen Delivery Method Nasal Cannula Weight: 99 lb 3.328 oz Body Mass Index (BMI) 21.4 Intake & Output: Intake and Output for Last 24 Hours 03/09/25 03/10/25 03/11/25 23:59 23:59 23:59 Intake Total 4833.75 / 4833.75 658.33 / 658.33 344.33 / 344.33 Output Total 3202 / 3202 600 / 600 Balance 1631.75 / 1631.75 658.33 / 58.33 -255.67 / -255.67 Lab / Micro Data 03/11/25 05:32 03/11/25 05:32 Labs: Laboratory Results - last 24 hr 03/11/25 05:32: WBC 8.6, RBC 3.25 L, Hgb 9.3 L, Hct 28.4 L, MCV 87.4, MCH 28.6, MCHC 32.7, RDW Std Deviation 55.0 H, RDW Coeff of Genaro 17.2 H, Plt Count 354, MPV 8.6, Immature Gran % (Auto) 0.700, Neut % (Auto) 69.3, Lymph % (Auto) 17.6 L, [place] % (Auto) 10.0, Eos % (Auto) 2.2, Baso % (Auto) 0.2, Absolute Neuts (auto) 6.0, Absolute Lymphs (auto) 1.52, Nucleated RBC % 0, Sodium 137, Potassium 4.6, Chloride 107, Carbon Dioxide 22.1, Anion Gap 8, BUN 7, Creatinine 0.67 L, Estim Creat Clear Calc 47.15 L, Est GFR (MDRD) Non-Af 95, BUN/Creatinine Ratio 10.0, Glucose 88, Calcium 7.8 Micro: Microbiology 03/08/25 08:09 Stool Stool Occult Blood (ELFEGO) - Final Physical Exam Const alert and oriented x3 Constitutional Narrative: frail, weak General Appearance: cooperative HEENT normocephalic, head/scalp atraumatic and hearing grossly normal bilaterally Eyes PERRL, EOMs intact bilaterally and conjunctivae normal Neck supple and no JVD Resp Resp Narrative: mildly diminished breath sounds bibasally, no wheezes or crackles. On 4L of oxygen by nasal canula Effort and Inspection: tachypneic Cardio regular rate, regular rhythm, S1 normal heart sound, S2 normal heart sound and no murmurs GI normal to inspection, nondistended, normoactive bowel sounds, soft to palpation and non-tender Extremity no clubbing, cyanosis or edema General Extremity: no tenderness to palpation of joints or extremities Skin General Skin Exam: no breakdown Neuro oriented x3, CN's II-XII intact bilaterally and moves all extremities Neuro Narrative: right BKA Sensorium / Orientation: awake and alert Motor Exam: general weakness Psych affect normal Appearance: appropriate Assessment & Plan Assessment/Plan (1) GI bleed: PLAN: Plan #Acute on chronic anemia due to GI bleed Hemoglobin was 5.8 on admission and is now 9.3. Has had transfusion of [address] of the abdomen and pelvis showed atherosclerotic plaque formation of the aorta and major visceral branches and sigmoid diverticulosis but no evidence of GI bleed Transfused units of packed red blood cells in the ED. Placed on pantoprazole drip. she had EGD which showed normal esophagus and acute gastritis which was biopsied. No gross lesions in the entire examined duodenum She did have EGD in December 2023 which showed nonsevere nonerosive esophagitis with no bleeding and mild gastritis with nonbleeding duodenal ulcer with no stigmata of bleeding. She had another EGD on 05/06/2024 which showed normal esophagus and medium amount of food residue in the stomach with no gross lesions in the second portion of the duodenum. colonoscopy showed diffuse severe inflammation in the recto-sigmoid, sigmoid colon, descending colon, at the splenic flexure, transverse colon, hepatic flexure, ascending colon and in the cecum secondary to pancolitis; this was biopsied. Diverticulosis in the rectosigmoid colon, sigmoid colon and in the descending colon. #SIRS criteria: wbc is down to 8.6. started empirically on IV cefepime due to concerns about possible aspiration. Chest x-ray did show a right middle lobe infiltrate. She is on 4 L of oxygen which she says is at baseline. On IV cefepime. Will switch to PO augmentin tomorrow #Hypertension: On Lasix #Hyperlipidemia: On statin #History of TIA: Hold Plavix due to GI bleed. On statin #Depression and anxiety: On duloxetine, BuSpar and Ativan as well as mirtazapine and topiramate #History of GERD: On sucralfate and PPI DVT prophylaxis: SCDs. CODE STATUS:full code Charges/Coding Visit Charges Inpatient E&M: 13758 Subs Hosp L2
[2025-03-12] VITALS (7 sets, daily range): BP systolic 97–113; BP diastolic 66–74; PULSE 73–80; RESP 16–19; TEMP 36.6–36.8; O2SAT 97–100; BMI 21.2
[2025-03-12 04:00] LABS: Hematocrit 30.1 % (37-47); Hemoglobin 9.7 g/dL (12.0-15.0); Immature Granulocytes Count 0.080 X10^3/uL (0.0-0.0); Mean Corp Hgb Conc 32.2 g/dL (32-36); Mean Corpuscular Volume 86.7 fL (81-99); Mean Platelet Vol. 8.9 fl (6.2-12.0); NRBC Flagged by Analyzer 0 % (0-5); Platelet Count 428 K/mm3 (150-450); RBC Distribution Width CV 16.9 % (11.6-14.6); RBC Distribution Width SD 52.6 fl (35.1-43.9); Red Blood Count 3.47 M/mm3 (4.2-5.4); White Blood Count 9.8 K/mm3 (4.4-11.0)
[2025-03-12 04:32] LABS: Anion Gap 7 (5-15); BUN 12 mg/dL (4-19); BUN/Creat Ratio 19.9 RATIO (10-20); Calcium,Total 8.3 mg/dL (7.6-11.0); Carbon Dioxide 26.8 mmol/L (21.0-32.0); Chloride 103 mmol/L (98-108); Estimated Creatinine Clearance 46.73 ml/min (50-250); Glucose 101 mg/dL (70-99); Potassium 3.4 mmol/L (3.3-5.1)
[2025-03-12] MEDS: Budesonide Respules 0.5 MG/2 ML AMPUL.NEB. INHALATION (06:54)
[2025-03-12] MEDS: ITRACONAZOLE 100 MG CAPSULE 200 MG PO (09:36)
[2025-03-12] MEDS: Cefepime HCl 1 GM in 0.9% Normal Saline (50mL MB+) 50 ML IV (09:39)
--- NOTE | 2025-03-12 12:43 | DCINST_ITS ---
Discharge Instructions DC O2, CPAP, BIPAP needs Home O2 Discharge instructions: Yes Type of respiratory needs?: Oxygen Oxygen frequency: Continuous Continuous oxygen liters per minute: 4 Dressing / Incision Discharge Activity: Return to Normal Activity Dressing / Incision Call your doctor if you observe: Fever of 101 or Higher, Shortness of breath, Dizziness, Swelling in the ankles and Chest pain Follow Up Care Test Results: Test results from this visit will be discussed in further detail at your follow- up appointment, if applicable. Discharge Plan Admission Admit Date/Time: 03/08/25 11:34 Primary Reason for Your Visit: acute GI bleed Attending Provider: Le Alba Primary Care Provider: Chrystal Michel Consulting Providers: Yaw Reyna; Sree Diggs; Ann-Marie Mercado; Yadira Dawson; Carleen Pa Instructions Patient Instructions: Colonoscopy: Post-op, Lower GI Endoscopy, Upper GI Endoscopy Discharge Orders/Prescriptions Prescriptions: Continued acetaminophen 500 mg tablet 500 mg PO Q6H PRN (Reason: pain) mupirocin 2 % ointment 1 applic topical BID Patient Comments: takes via nasal lorazepam 1 mg tablet 1 mg PO TID topiramate 50 mg tablet 50 mg PO QDAY quetiapine 50 mg tablet 50 mg PO QHS Spiriva Respimat 2.5 mcg/actuation mist 2 inh INHALATION DAILY Qty: 3 3RF cyclobenzaprine 10 mg tablet 10 mg PO QHS clopidogrel 75 MG tablet 75 mg PO DAILY atorvastatin 80 MG tablet 80 mg PO QHS metoprolol tartrate 25 mg tablet 25 mg PO Q12H duloxetine 60 MG capsule 60 mg PO BID furosemide 40 mg Tablet 60 mg PO DAILY Rx Instructions: take with 20mg tablet for a total of 60mg daily liothyronine 5 mcg tablet 10 mcg PO DAILY pantoprazole 40 mg Tablet,Delayed Release (Dr/Ec) 40 mg PO BID 30 Days Qty: 60 0RF buspirone 10 mg tablet 10 mg PO BID cholecalciferol (vitamin D3) 1,250 mcg (50,000 unit) capsule 1,250 mcg PO QWEEK Rx Instructions: takes on thursday hydroxyzine HCl 50 mg tablet 50 mg PO QHS OXYGEN - Supplemental ([facility] INFORMATIONAL USE ONLY) 4 l Not Applicable CONT Rx Instructions: 4 LPM itraconazole 100 mg capsule 200 mg PO BID levothyroxine 50 mcg tablet 50 mcg PO SUSA ipratropium-albuterol 0.5 mg-3 mg(2.5 mg base)/3 mL solution for nebulization 3 ml inhalation .Q4-6H PRN (Reason: shortness of breath or wheezing) levothyroxine 75 mcg tablet 75 mcg PO MOTUWETHFR Dulera 200-5 mcg/actuation HFA aerosol inhaler 2 puff inhalation BID albuterol sulfate 90 mcg/actuation HFA aerosol inhaler 2 puff INHALATION Q4H PRN (Reason: COPD) Qty: 1 8RF montelukast 10 mg tablet 10 mg PO QPM Qty: 90 3RF Discontinued diclofenac sodium 75 mg tablet,delayed release (DR/EC) 75 mg PO BID Referrals / Follow Up: Chrystal Michel DO [Primary Care Provider, Family Practice] - Within 1 Week Sree Diggs DO [Med Staff - Active Staff, Gastroenterology] - Within 2 Weeks Disposition Disposition (needs filled in before D/C Order can be placed): Home, Self Care
--- NOTE | 2025-03-12 13:47 | DS.PCM_ITS ---
Providers Date of Admission: 03/08/25 Date of Discharge: 03/12/25 Primary Care Physician: Dr. Chrystal Michel, DO Consultations 03/08/25 14:45 Consult: Gastroenterology Routine Consulting Provider: [facility] Reason for Consult: acute on chronic anemia due to GI bleed EMERGENT Consult: No MD Notified: Yes Date Notified: 03/08/25 Time Notified: 14:45 Method of Notification: Text Reason For Visit: ACUTE ON CHRONIC ANEMIA DUE TO GI BLEED Diagnosis Discharge Diagnosis (1) GI bleed: Status: Acute Code(s): K92.2 - Gastrointestinal hemorrhage, unspecified Plan #Acute on chronic anemia due to GI bleed * Hemoglobin was 5.8 on admission and is now 9.3. Has had transfusion of 2 units of PRBCs * CT of the abdomen and pelvis showed atherosclerotic plaque formation of the aorta and major visceral branches and sigmoid diverticulosis but no evidence of GI bleed * Transfused units of packed red blood cells in the ED. Placed on pantoprazole drip. * she had EGD which showed normal esophagus and acute gastritis which was biopsied. No gross lesions in the entire examined duodenum * She did have EGD in December 2023 which showed nonsevere nonerosive esophagitis with no bleeding and mild gastritis with nonbleeding duodenal ulcer with no stigmata of bleeding. She had another EGD on 05/06/2024 which showed normal esophagus and medium amount of food residue in the stomach with no gross lesions in the second portion of the duodenum. * colonoscopy showed diffuse severe inflammation in the recto-sigmoid, sigmoid colon, descending colon, at the splenic flexure, transverse colon, hepatic flexure, ascending colon and in the cecum secondary to pancolitis; this was biopsied. Diverticulosis in the rectosigmoid colon, sigmoid colon and in the descending colon. * #SIRS criteria: * wbc is down to 8.6. * started empirically on IV cefepime due to concerns about possible aspiration. * Chest x-ray did show a right middle lobe infiltrate. She is on 4 L of oxygen which she says is at baseline. * On IV cefepime. Will switch to PO augmentin tomorrow * #Hypertension: On Lasix #Hyperlipidemia: On statin #History of TIA: Hold Plavix due to GI bleed. On statin #Depression and anxiety: On duloxetine, BuSpar and Ativan as well as mirtazapine and topiramate #History of GERD: On sucralfate and PPI DVT prophylaxis: SCDs. CODE STATUS:full code * Medications at Discharge Home Medications atorvastatin 80 mg tablet 80 mg PO QHS cholesterol 06/01/13 clopidogrel 75 mg tablet 75 mg PO DAILY anti platelet 06/01/13 duloxetine 60 mg capsule,delayed release 60 mg PO BID DEPRESSION 06/19/20 furosemide 40 mg tablet 60 mg PO DAILY water pill 08/23/22 liothyronine 5 mcg tablet 10 mcg PO DAILY HYPOTHYROIDISM 08/23/22 pantoprazole 40 mg tablet,delayed release 40 mg PO BID ACID REFLEX 30 days #60 tabs 05/06/23 metoprolol tartrate 25 mg tablet 25 mg PO Q12H blood pressure 10/09/23 acetaminophen 500 mg tablet 500 mg PO Q6H PRN pain 11/05/23 buspirone 10 mg tablet 10 mg PO BID ANXIETY 02/09/24 ipratropium 0.5 mg-albuterol 3 mg (2.5 mg base)/3 mL nebulization soln 3 ml inhalation .Q4-6H PRN shortness of breath or wheezing 03/11/24 levothyroxine 50 mcg tablet 50 mcg PO SUSA thyroid 03/11/24 levothyroxine 75 mcg tablet 75 mcg PO MOTUWETHFR THYROID 03/11/24 mometasone-formoterol HFA 200 mcg-5 mcg/actuation aerosol inhaler (Dulera) 2 puff inhalation BID COPD 04/26/24 cholecalciferol (vitamin D3) 1,250 mcg (50,000 unit) capsule 1,250 mcg PO QWEEK bones 05/22/24 hydroxyzine HCl 50 mg tablet 50 mg PO QHS anxiety 05/26/24 albuterol sulfate 90 mcg/actuation aerosol inhaler 2 puff inhalation Q4H PRN COPD #1 device 06/13/24 lorazepam 1 mg tablet 1 mg PO TID anxiety 11/15/24 mupirocin 2 % topical ointment 1 applic topical BID infection 11/15/24 quetiapine 50 mg tablet 50 mg PO QHS 11/15/24 tiotropium bromide 2.5 mcg/actuation mist for inhalation (Spiriva Respimat) 2 inh inhalation DAILY LUNGS #3 ea 11/15/24 topiramate 50 mg tablet 50 mg PO QDAY 11/15/24 cyclobenzaprine 10 mg tablet 10 mg PO QHS 11/25/24 montelukast 10 mg tablet 10 mg PO QPM allergies #90 tabs 01/30/25 OXYGEN - Supplemental ([facility] INFORMATIONAL USE ONLY) 4 l Not Applicable CONT Pulmonary Information 03/08/25 itraconazole 100 mg capsule 200 mg PO BID health maintenance 03/10/25 levofloxacin 500 mg tablet 500 mg PO DAILY #3 tabs 03/12/25 Hospital Course Operations None Procedures None Summary of Care Provided Minutes Spent on Discharge: 45 Hospital Course: TAJ BLANK, is a 69 F with a PMH as outlined who was admitted via the ED on 03/08/2025 with a complaint of nausea and diarrhea as well as weakness and abdominal pain. Her symptoms started one day prior to admission. She said she had multiple episodes of diarrhea. The diarrhea was initially black and then became bloody. She denied any vomiting. She denied any fever or chills, shortness of breath, dizziness or lightheadedness or any other complaints. Review of systems otherwise negative. Vitals in the ED were temperature of 97.9 Fahrenheit, blood pressure of 86/52, respiratory rate of 16 and show saturating at 95% on room air. CBC showed hemoglobin of 5.8 with WBC of 22.3 and platelets of 566. INR is 1.1. Chemistry shows sodium of 134 potassium of 4.3 and bicarb of 17.6. Creatinine is 0.94. Urinalysis shows no evidence of UTI. CT abdomen and pelvis showed atherosclerotic plaque formation of the aorta and major visceral branches and sigmoid diverticulosis but no evidence of GI bleed. She has been admitted to be managed for acute on chronic anemia likely due to GI bleed in light of her complaints of dark stools. She was admitted to the ICU on account of the hypotension. She was hydrated with IV fluids. She was also started on IV cefepime due to concerns about aspiration pneumonia. She had EGD which showed normal esophagus and acute gastritis which was biopsied and no gross lesions in the entire examined duodenum. She was transfused with a total of 2 units of packed red blood cells during this admission. She had colonoscopy which showed diffuse inflammation in the rectosigmoid colon, sigmoid colon, descending colon, splenic flexure, transverse colon and hepatic flexure as well as in the ascending colon and cecum secondary to pancolitis. This was biopsied. She also had diverticulosis in the rectosigmoid colon, sigmoid colon and descending colon. Differentials for gastroenterology included severe ischemic or Crohn's colitis. Patient remained stable and was transferred out of the ICU. Gastroenterology was okay with her resuming her Plavix on discharge. She was discharged home on 03/12/2025 on p.o. Levaquin for 3-day course to complete the course of antibiotics for the suspected aspiration pneumonitis. She is to follow-up with her primary care doctor and follow-up with gastroenterology on outpatient basis. Patient was seen and examined prior to discharge. She had no complaints and felt well. She had an uneventful night. Review of systems otherwise negative. Labs and vitals reviewed. Home medication reviewed and reconciled. Physical Exam Const alert and oriented x3 Constitutional Narrative: frail, weak General Appearance: cooperative and comfortable Orientation / Consciousness: lethargic HEENT normocephalic, head/scalp atraumatic and hearing grossly normal bilaterally Mouth: oral and palatal mucosa normal Eyes PERRL, EOMs intact bilaterally and conjunctivae normal Neck supple and no JVD Resp Resp Narrative: mildly diminished breath sounds bibasally, no wheezes or crackles. On 3L of oxygen by nasal canula which is her baseline Cardio regular rate, regular rhythm, S1 normal heart sound and S2 normal heart sound GI normal to inspection, nondistended, normoactive bowel sounds, soft to palpation and non-tender Extremity no clubbing, cyanosis or edema General Extremity: no tenderness to palpation of joints or extremities Skin no rashes or lesions noted General Skin Exam: no breakdown Neuro oriented x3, CN's II-XII intact bilaterally and moves all extremities Neuro Narrative: right BKA Sensorium / Orientation: awake and alert Motor Exam: strength 5/5 throughout and general weakness Psych affect normal Appearance: appropriate Weight / BMI Weight Weight: 98 lb 5.219 oz Body Mass Index (BMI) 21.2 ABG / Lab / Microbiology Data 03/12/25 03:44 03/12/25 03:44 Laboratory: Laboratory Results - last 24 hr 03/12/25 03:44: WBC 9.8, RBC 3.47 L, Hgb 9.7 L, Hct 30.1 L, MCV 86.7, MCH 28.0, MCHC 32.2, RDW Std Deviation 52.6 H, RDW Coeff of Genaro 16.9 H, Plt Count 428, MPV 8.9, Immature Gran % (Auto) 0.800, Neut % (Auto) 64.8, Lymph % (Auto) 21.2, Iron % (Auto) 9.2, Eos % (Auto) 3.5, Baso % (Auto) 0.5, Absolute Neuts (auto) 6.4, Absolute Lymphs (auto) 2.08, Nucleated RBC % 0, Sodium 138, Potassium 3.4, Chloride 103, Carbon Dioxide 26.8, Anion Gap 7, BUN 12, Creatinine 0.58 L, Estim Creat Clear Calc 46.73 L, Est GFR (MDRD) Non-Af 98, BUN/Creatinine Ratio 19.9, G lucose 101 H, Calcium 8.3 Microbiology: Microbiology 03/08/25 08:09 Stool Stool Occult Blood (ELFEGO) - Final D/C Instructions Discharge Activity: Return to Normal Activity Weight Bearing Status: Weight bearing as tolerated Call your doctor if you observe: Fever of 101 or Higher, Shortness of breath, Dizziness, Swelling in the ankles and Chest pain DC O2, CPAP, BIPAP Needs Home O2 Discharge instructions: Yes Type of respiratory needs?: Oxygen Oxygen frequency: Continuous Continuous oxygen liters per minute: 4 DC home with Oxygen: Yes Home O2 MD Review: I have reviewed the oxygen testing, and the patient qualifies for home oxygen equipment and portability. The patient is mobile in the home and the community. Meaningful Use Info Meaningful Use Meaningful Use Diagnoses (Choose all that apply): None applicable Discharge Plan Admission Admit Date/Time: 03/08/25 11:34 Primary Reason for Your Visit: acute GI bleed Attending Provider: Le Alba Primary Care Provider: Chrystal Michel Consulting Providers: Yaw Reyna; Sree Diggs; Ann-Marie Mercado; Yadira Dawson; Carleen Pa Instructions Patient Instructions: Colonoscopy: Post-op, Lower GI Endoscopy, Upper GI Endoscopy Discharge Orders/Prescriptions Prescriptions: New levofloxacin 500 mg tablet 500 mg PO DAILY Qty: 3 0RF Continued acetaminophen 500 mg tablet 500 mg PO Q6H PRN (Reason: pain) mupirocin 2 % ointment 1 applic topical BID Patient Comments: takes via nasal lorazepam 1 mg tablet 1 mg PO TID topiramate 50 mg tablet 50 mg PO QDAY quetiapine 50 mg tablet 50 mg PO QHS Spiriva Respimat 2.5 mcg/actuation mist 2 inh INHALATION DAILY Qty: 3 3RF cyclobenzaprine 10 mg tablet 10 mg PO QHS clopidogrel 75 MG tablet 75 mg PO DAILY atorvastatin 80 MG tablet 80 mg PO QHS metoprolol tartrate 25 mg tablet 25 mg PO Q12H duloxetine 60 MG capsule 60 mg PO BID furosemide 40 mg Tablet 60 mg PO DAILY Rx Instructions: take with 20mg tablet for a total of 60mg daily liothyronine 5 mcg tablet 10 mcg PO DAILY pantoprazole 40 mg Tablet,Delayed Release (Dr/Ec) 40 mg PO BID 30 Days Qty: 60 0RF buspirone 10 mg tablet 10 mg PO BID cholecalciferol (vitamin D3) 1,250 mcg (50,000 unit) capsule 1,250 mcg PO QWEEK Rx Instructions: takes on thursday hydroxyzine HCl 50 mg tablet 50 mg PO QHS OXYGEN - Supplemental ([facility] INFORMATIONAL USE ONLY) 4 l Not Applicable CONT Rx Instructions: 4 LPM itraconazole 100 mg capsule 200 mg PO BID levothyroxine 50 mcg tablet 50 mcg PO SUSA ipratropium-albuterol 0.5 mg-3 mg(2.5 mg base)/3 mL solution for nebulization 3 ml inhalation .Q4-6H PRN (Reason: shortness of breath or wheezing) levothyroxine 75 mcg tablet 75 mcg PO MOTUWETHFR Dulera 200-5 mcg/actuation HFA aerosol inhaler 2 puff inhalation BID albuterol sulfate 90 mcg/actuation HFA aerosol inhaler 2 puff INHALATION Q4H PRN (Reason: COPD) Qty: 1 8RF montelukast 10 mg tablet 10 mg PO QPM Qty: 90 3RF Discontinued diclofenac sodium 75 mg tablet,delayed release (DR/EC) 75 mg PO BID Referrals / Follow Up: Chrystal Michel DO [Primary Care Provider, Family Practice] - Within 1 Week Sree Diggs DO [Med Staff - Active Staff, Gastroenterology] - Within 2 Weeks Disposition Disposition (needs filled in before D/C Order can be placed): Home, Self Care Charges/Coding Visit Charges Inpatient E&M: 49920 Disch Hosp >30min
== END 2025-03-12 14:12 | disposition home or self-care (01) | DRG 377 ==
LOC: ED 11:29 → ICU 11:38 → PCU 03-09 17:57
PROVIDERS: Anesthesiology; Family Medicine; Internal Medicine Gastroenterology; Admitting Provider Student in an Organized Health Care Education/Training Program; Emergency Provider Emergency Medicine; PCP Family Medicine; Visit Provider Student in an Organized Health Care Education/Training Program
PROC: 0DJ08ZZ Inspection of Upper Intestinal Tract, Via Natural or Artificial Opening Endoscopic (ICD-10-PCS; CPT 43235; principal; 2025-03-09 08:25)
PROC: 0DJD8ZZ Inspection of Lower Intestinal Tract, Via Natural or Artificial Opening Endoscopic (ICD-10-PCS; CPT 45378; principal; 2025-03-10 15:10)
DX: K29.01 Acute gastritis with bleeding (principal); J69.0 Pneumonitis due to inhalation of food and vomit; D62 Acute posthemorrhagic anemia; J44.9 Chronic obstructive pulmonary disease, unspecified; E03.9 Hypothyroidism, unspecified; F32.A Depression, unspecified; I10 Essential (primary) hypertension; I70.0 Atherosclerosis of aorta; Z89.511 Acquired absence of right leg below knee; E83.51 Hypocalcemia; M79.7 Fibromyalgia; G47.33 Obstructive sleep apnea (adult) (pediatric); I25.2 Old myocardial infarction; F41.9 Anxiety disorder, unspecified; F17.200 Nicotine dependence, unspecified, uncomplicated; G43.909 Migraine, unspecified, not intractable, without status migrainosus; E78.5 Hyperlipidemia, unspecified; I95.2 Hypotension due to drugs; K52.9 Noninfective gastroenteritis and colitis, unspecified; E86.1 Hypovolemia; K21.9 Gastro-esophageal reflux disease without esophagitis; K57.30 Diverticulosis of large intestine without perforation or abscess without bleeding; Z86.73 Personal history of transient ischemic attack (TIA), and cerebral infarction without residual deficits; F43.10 Post-traumatic stress disorder, unspecified; T42.75XA Adverse effect of unspecified antiepileptic and sedative-hypnotic drugs, initial encounter; Z87.19 Personal history of other diseases of the digestive system; Z79.899 Other long term (current) drug therapy; Z79.02 Long term (current) use of antithrombotics/antiplatelets; Z79.890 Hormone replacement therapy; Z79.51 Long term (current) use of inhaled steroids; Z95.5 Presence of coronary angioplasty implant and graft; Z90.49 Acquired absence of other specified parts of digestive tract
CPT/HCPCS: 36415; 71045; 74174; 80048; 80053; 80076; 81001; 82274; 83690; 85014; 85018; 85025; 85610; 85730; 86850; 86900; 86901; 88305; 88342; 93005; 94640; 94762; 97161; 97166; 99285; P9016; Q9967; A4216; J0612; J2405

== ENCOUNTER → 2025-03-17 | Outpatient (CLI) | payer MEDICARE, SELFPAY ==
[2025-03-17 14:10] LABS: Hematocrit 32.8 % (37-47); Hemoglobin 10.3 g/dL (12.0-15.0); Immature Granulocytes Count 0.050 X10^3/uL (0.0-0.0); Mean Corp Hgb Conc 31.4 g/dL (32-36); Mean Corpuscular Volume 89.6 fL (81-99); Mean Platelet Vol. 9.0 fl (6.2-12.0); NRBC Flagged by Analyzer 0 % (0-5); POSITIVE COUNT YES; Platelet Count 779 K/mm3 (150-450); RBC Distribution Width CV 17.1 % (11.6-14.6); RBC Distribution Width SD 55.5 fl (35.1-43.9); Red Blood Count 3.66 M/mm3 (4.2-5.4); White Blood Count 11.0 K/mm3 (4.4-11.0)
[2025-03-17 14:12] LABS: Differential Indicated SCAN CRITERIA MET
[2025-03-17 15:07] LABS: AST(SGOT) 16 U/L (<=31); Alanine Aminotransfer ALT/SGPT 14 U/L (<=34); Albumin, Serum 3.3 g/dL (3.4-4.8); Alkaline Phosphatase 88 U/L (35-104); Anion Gap 11 (5-15); BUN 35 mg/dL (4-19); BUN/Creat Ratio 36.8 RATIO (10-20); CRP < 3.00 mg/L (0.0-3.0); Calcium,Total 8.5 mg/dL (7.6-11.0); Carbon Dioxide 26.9 mmol/L (21.0-32.0); Chloride 101 mmol/L (98-108); Globulin 3.1 g/dL (2.2-4.2); Glucose 97 mg/dL (70-99); Potassium 4.2 mmol/L (3.3-5.1)
== END | disposition home or self-care (01) ==
LOC: LAB 13:29
PROVIDERS: PCP Family Medicine; Referring Provider Student in an Organized Health Care Education/Training Program; Visit Provider Student in an Organized Health Care Education/Training Program
DX: K92.2 Gastrointestinal hemorrhage, unspecified (principal); D64.9 Anemia, unspecified
CPT/HCPCS: 80053; 85025; 86140

== ENCOUNTER → 2025-03-24 | Outpatient (CLI) | payer MEDICARE, SELFPAY ==
[2025-03-24 09:21] LABS: Hematocrit 35.2 % (37-47); Hemoglobin 11.5 g/dL (12.0-15.0); Immature Granulocytes Count 0.030 X10^3/uL (0.0-0.0); Mean Corp Hgb Conc 32.7 g/dL (32-36); Mean Corpuscular Volume 88.7 fL (81-99); Mean Platelet Vol. 8.8 fl (6.2-12.0); NRBC Flagged by Analyzer 0 % (0-5); Platelet Count 641 K/mm3 (150-450); RBC Distribution Width CV 17.1 % (11.6-14.6); RBC Distribution Width SD 55.5 fl (35.1-43.9); Red Blood Count 3.97 M/mm3 (4.2-5.4); White Blood Count 10.1 K/mm3 (4.4-11.0)
--- OUTSIDE RECORDS SUMMARY | 2025-03-24 09:26 | XMS RPT_ITS | CCD ---
Author Organization [facility] Care Team Providers Care Supervisor Purification Name Role Phone [facility] INFUSION ROOM 01, [id number] Unavaila ble Unavailable Malys, Errol A Unavailable Unavailable Tabbaa, Kutaiba Unavailable Unavailable Tabbaa, Kutaiba Unavailable Unavailable Malys, Errol A Unavailable Unavailable Unavailable Parvez Hendricks MDiba Unavailable Unavailable Unavailable Unavailable Dr. Errol Michel Primary Care Provider Dr. Henry Page Attending Provider Dr. Henry Page Referring Provider Dr. Errol Michel Primary Care Provider Dr. Henry Page Attending Provider Dr. Henry Page Referring Provider Dr. Errol Michel Primary Care Provider Dr. Errol Michel Referring Provider Curtis TALENT DEVELOPMENT CONSULTANT, TALENT DEVELOPMENT CONSULTANT-C Bonita Attending Provider Dr. Errol Michel Primary Care Provider Dr. Errol Michel Referring Provider Curtis TALENT DEVELOPMENT CONSULTANT, TALENT DEVELOPMENT CONSULTANT-C Bonita Attending Provider Dr. Reece Leon Emergency Provider [phone] Dr. Samuel Goldsmith Admit Provider Dr. Samuel Goldsmith Other Provider Dr. Allyssa Gardiner Attending Provider Dr. Allyssa Gardiner Other Provider Dr. Yaw Reyna Attending Provider Dr. Yaw Reyna Other Provider Dr. Néstor Betts Attending Provider Dr. Jonathan Somers Attending Provider Dr. Henry Page Other Provider Dr. Caesar Salgado Other Provider Dr. Erickson Fitzgerald Other Provider Dr. Sebastian Rich Other Provider Unavailab le Curtis TALENT DEVELOPMENT CONSULTANT, TALENT DEVELOPMENT CONSULTANT-C Bonita Other Provider Dr. Errol Michel Primary Care Provider Dr. Angel Fried Attending Provider 1([facility])[phone] Samuel Goldsmith Referring Provider 1([facility])[phone] Dr. Allyssa Gardiner Referring Provider 1([facility])[phone] Caesar Salgado Attending Provider Dr. Cherelle Almendarez Referring Provider 1([facility])[phone] Henry Page Attending Provider 1([facility])[phone] Cherelle Almendarez Other Provider Dr. Cherelle Almendarez Attending Provider Dr. Erickson Fitzgerald Attending Provider 1([facility])[phone] Dr. Errol Michel Referring Provider 1([facility])[phone] Curtis TALENT DEVELOPMENT CONSULTANT, TALENT DEVELOPMENT CONSULTANT-C Bonita Attending Provider [phone] PAULA MOSS Attending Unavailable PAULA MOSS Admitting Unavailable ERROL MICHEL Primary Care Unavailable Dr. Errol Michel Primary Care Provider Dr. Reece Leon Emergency Provider Dr. Samuel Goldsmith Admit Provider Dr. Samuel Goldsmith Other Provider Dr. Yaw Reyna Attending Provider Dr. Yaw Reyna Other Provider [phone] Abdifatah, Dr. Spivey Other Provider Yonis, Dr. Castillo Attending Provider Malys, Dr. Jarrell Primary Care Provider Camilo, Dr. Figueroa Attending Provider Camilo, Dr. Figueroa Referring Provider Camilo, Dr. Figueroa Other Provider Ry, Dr. Maynard Attending Provider Tabbaa, Dr. Meeks Attending Unavailable Malys, Dr. Errol Bailey Primary Care Unavailable Malys, Dr. Errol Bailey Primary Care Unavailable Tabbaa, Dr. Meeks Attending Unavailable Malys, Dr. Errol Bailey Primary Care Unavailable Tabbaa, Dr. Meeks Attending Unavailable Malys, Dr. Errol Bailey Primary Care Unavailable Tabbaa, Dr. Meeks Attending Unavailable Tabbaa, Dr. Meeks Referring Unavailable Malys, Dr. Errol Bailey Primary Care Unavailable Tabbaa, Dr. Meeks Attending Unavailable Malys, Dr. Errol Bailey Primary Care Unavailable Tabbaa, Dr. Meeks Attending Unavailable Tabbaa, Dr. Meeks Attending Unavailable Malys, Dr. Errol Bailey Primary Care Unavailable Malys, Dr. Errol Bailey Primary Care Unavailable Tabbaa, Dr. Meeks Attending Unavailable Malys, Dr. Errol Bailey Primary Care Unavailable Tabbaa, Dr. Meeks Attending Unavailable Malys, Dr. Errol Bailey Primary Care Unavailable Tabbaa, Dr. Meeks Admitting Unavailable Tabbaa, Dr. Meeks Attending Unavailable Tabbaa, Dr. Meeks Referring Unavailable Malys, Dr. Errol Bailey Primary Care Unavailable Tabbaa, Dr. Meeks Attending Unavailable Malys, Dr. Errol Bailey Primary Care Unavailable Tabbaa, Dr. Meeks Attending Unavailable Tabbaa, Dr. Meeks Referring Unavailable Malys, Dr. Errol Bailey Primary Care Unavailable Tabbaa, Dr. Meeks Attending Unavailable Malys, Dr. Errol Bailey Primary Care Unavailable Tabbaa, Dr. Meeks Attending Unavailable Tabbaa, Dr. Meeks Attending Unavailable Malys, Dr. Errol Bailey Primary Care Unavailable Malys, Dr. Errol Bailey Primary Care Unavailable Tabbaa, Dr. Meeks Attending Unavailable Malys, Dr. Errlo Bailey Primary Care Unavailable Tabbaa, Dr. Meeks Attending Unavailable Malys, Dr. Errol Bailey Primary Care Unavailable Tabbaa, Dr. Meeks Attending Unavailable Malys, Dr. Errol Bailey Primary Care Unavailable Tabbaa, Dr. Meeks Attending Unavailable Malys, Dr. Errol Bailey Primary Care Unavailable Tabbaa, Dr. Meeks Attending Unavailable Tabbaa, Dr. Meeks Referring Unavailable Malys, Dr. Errol Bailey Primary Care Unavailable Tabbaa, Dr. Meeks Attending Unavailable Malys, Dr. Jarrell Primary Care Provider Malys, Dr. Jarrell Referring Provider Malys DO, Errol Bailey Primary Care Provider Malys, Dr. Jarrell Primary Care Provider [phone] Malangus, Dr. Jarrell Referring Provider [phone] Henry Page Attending Provider Dr. Henry Page Referring Provider Dr. Henry Page Other Provider Dr. Caesar Salgado Attending Provider Curtis TALENT DEVELOPMENT CONSULTANT, TALENT DEVELOPMENT CONSULTANT-C Bonita Attending Provider [phone] MD Damon Angel Emergency Provider Dr. David Blackwell Admit Provider Dr. David Blackwell Other Provider Dr. Le Alba Other Provider Dr. Caesar Salgado Other Provider Dr. Dorothy Tenorio Attending Provider Unavailabl e Coby, Dr. De La Cruz Other Provider Unavailable Cieloayaka, Dr. Cortes Other Provider Unavailab le Curtis TALENT DEVELOPMENT CONSULTANT, TALENT DEVELOPMENT CONSULTANT-C Bonita Other Provider Dr. Le Alba Attending Provider Dr. Errol Michel Primary Care Provider Dr. Errol Michel Referring Provider Dr. Le Alba Referring Provider Dr. Henry Page Other Provider Dr. Néstor Kirkpatrick Emergency Provider Dr. Cherelle Almendarez Admit Provider Dr. Cherelle Almendarez Attending Provider Dr. Cherelle Almendarez Other Provider Friend, Dr. Balbuena Other Provider KRISTEN Acuña-Priscila Toth Attending Provider Friend, Dr. Balbuena Attending Provider [phone] David Blackwell Attending Provider Jarenangus Errol GAMBOA Primary Care Provider Dr. Errol Michel Primary Care Provider MD Damon nAgel Emergency Provider Dr. David Blackwell Admit Provider Dr. David Blackwell Other Provider Dr. eL Alba Referring Provider Parth, Dr. Le Sheppard Other Provider Dr. Henry Page Other Provider Dr. Caesar Salgado Other Provider Dr. Dorothy Tenorio Attending Provider Unavailabl Dr. Dorothy Beebe Other Provider Unavailable Dr. Sebastian Rich Other Provider Unavailab Butler TALENT DEVELOPMENT CONSULTANT, TALENT DEVELOPMENT CONSULTANT-C Bonita Other Provider Dr. Le Alba Attending Provider Dr. Néstor Kirkpatrick Emergency Provider Dr. Cherelle Almendarez Admit Provider Dr. Cherelle Almendarez Attending Provider Dr. Cherelle Almendarez Other Provider Friend, Dr. Balbuena Other Provider MELA Acuña Attending Provider [phone] David Blackwell Referring Provider Friend, Dr. Balbuena Attending Provider Dr. David Blackwell Attending Provider Dr. Errol Michel Primary Care Provider [phone] Dr. David Blackwell Other Provider Anand DO, Errol A Primary Care Provider Praneeth Dixon Unavailable RICARDO DANIELS Attending Unavailable MALYS, ERROL A Primary Care Unavailable MALYS, ERROL A Primary Care Unavailable PRABHAKARAN, ANBAZHAGAN Admitting Unavaila ble PRABHAKARAN, ANBAZHAGAN Attending Unavaila ble Malys, Errol A Primary Care Provider COVERDARANDAL GOYAL Referring Unavailable MALYS, ERROL SABINA Primary Care Unavailable COVERDARANDAL GOYAL Referring Unavailable MALYS, ERROL SABINA Primary Care Unavailable MIRIAM MÉNDEZ Admitting Unavailable GEORGIE LUQUE Attending Unavailable MALYS, ERROL Primary Care Unavailable BONITA ACEVEDO Referring Unavailable ARVIBALJINDER Attending Unavailable RAVI, BALJINDER Attending Unavailable MALYS, ERROL Primary Care Unavailable RAVI, BALJINDER Attending Unavailable MALYS, ERROL Primary Care Unavailable MALDONADO, BEAU T Referring Unavailable MALYS, ERROL SABINA Primary Care Unavailable MALDONADO, BEAU T Referring Unavailable MALYS, ERROL SABINA Primary Care Unavailable MALDONADO, BEAU T Attending Unavailable MALYS, ERROL SABINA Primary Care Unavailable MALDONADO, BEAU T Referring Unavailable MALYS, ERROL SABINA Primary Care Unavailable MALDONADO, BEAU T Referring Unavailable MALYS, ERROL SABINA Primary Care Unavailable MALDONADO, BEAU T Referring Unavailable MALYS, ERROL SABINA Primary Care Unavailable MALDONADO, BEAU T Referring Unavailable MALYS, ERROL SABINA Primary Care Unavailable MALDONADO, BEAU T Referring Unavailable MALYS, ERROL SABINA Primary Care Unavailable MALDONADO, BEAU T Referring Unavailable MALYS, ERROL SABINA Primary Care Unavailable MALDONADO, BEAU T Attending Unavailable MALYS, ERROL SABINA Primary Care Unavailable MALDONADO, BEAU T Referring Unavailable MALYS, ERROL SABINA Primary Care Unavailable MALDONADO, BEAU T Referring Unavailable MALYS, ERROL SABINA Primary Care Unavailable GERALDINE HENDRICKSTAIBA Attending Unavailable MALYS, ERROL SABINA Primary Care Unavailable MALDONADO, BEAU T Referring Unavailable MALYS, ERROL SABINA Primary Care Unavailable MALDONADO, BEAU T Referring Unavailable MALYS, ERROL SABINA Primary Care Unavailable MALDONADO, BEAU T Referring Unavailable MALYS, ERROL SABINA Primary Care Unavailable MALDONADO, BEAU T Referring Unavailable MALYS, ERROL SABINA Primary Care Unavailable MALDONADO, BEAU T Referring Unavailable MALYS, ERROL SABINA Primary Care Unavailable Caesar Salgado Attending Unavailable Caesar Salgado Referring Unavailable Malys, Errol Primary Care Unavailable Malys, Errol Primary Care Unavailable Curtis TALENT DEVELOPMENT CONSULTANT, Bonita Referring Unavailable Curtis TALENT DEVELOPMENT CONSULTANT, Bonita Attending Unavailable Malys, Errol Primary Care Unavailable Fernandez Pereira Attending Unavailabl e Fernandez Pereira Referring Unavailabl e Malys, Errol Primary Care Unavailable Cherelle Almendarez Admitting Unavailable Cherelle Almendarez Consulting Unavailable Dwight Jones Attending Unavailable David Blackwell Consulting Unavailable Alok Bartlett Consulting Unavailable Jose Mckinney Consulting Unavailable Mil Banda Consulting Unavailable Henry Page Consulting Unavailable Caesar Salgado Consulting Unavailable Alisha Victor Consulting Unavailable Jabier Santos Consulting Unavailable Rishabh Damon Consulting Unavailable Sana Fields Consulting Unavailab Morales Duarte Consulting Unavailable Baljinder Zavaleta Consulting Unavailable Toribio Pichardo Consulting Unavailable Analisa Singletary Consulting Unavailable AlDorothy vallejo Consulting Unavailable Turner, Jonathan Consulting Unavailable Jon Gaines Consulting Unavailable Carmelo Lemus Consulting Unavailable Hernán Gambino Consulting Unavailable Hermelinda Ambrose Consulting Unavailable Ricco Roy Consulting Unavailable Yo Villa Consulting Unavailable Julien Ross Consulting Unavailable Asif Galicia Consulting Unavailable Le Alba Consulting Unavailable Malys, Errol Primary Care Unavailable Cherelle Almendarez Admitting Unavailable Cherelle Almendarez Consulting Unavailable Radha Albaa Valarie Attending Unavailable David Blackwell Consulting Unavailable Jose Mckinney Consulting Unavailable Mil Banda Consulting Unavailable Henry Page Consulting Unavailable Caesar Salgado Consulting Unavailable Alisha Victor Consulting Unavailable Jabier Santos Consulting Unavailable Rishabh Damon Consulting Unavailable Sana Fields Consulting UnavailMorales Nassar Consulting Unavailable Baljinder Zavaleta Consulting Unavailable Toribio Pichardo Consulting Unavailable Analisa Singletary Consulting Unavailable Dorothy Tenorio Consulting Unavailable Jonathan Tompkins Consulting Unavailable Jon Gaines Consulting Unavailable Carmelo Lemus Consulting Unavailable Hernán Gambino Consulting Unavailable Hermelinda Ambrose Consulting Unavailable Ricco Roy Consulting Unavailable Yo Villa Consulting Unavailable Julien Ross Consulting Unavailable Asif Galicia Consulting Unavailable Le Alba Consulting Unavailable Gilberto Coats Consulting Unavailable Malys, Errol Primary Care Unavailable David Blackwell Admitting Unavailable Yaw Reyna Attending Unavailable David Blackwell Referring Unavailable Isamar Stevenson Consulting Unavailable Iam Estrada Consulting Unavailable Sena Myles Consulting Unavailable Ifrah Mejia Consulting Unavailable David Blackwell Consulting Unavailable Amador Mejia Consulting Unavailable Asmita Olguin Consulting Unavailable Milana Childers Consulting Unavailable Thad Gomez Consulting Unavailable Fifi Bowles Consulting Unavailable Jorge Luis Powers Consulting Unavailable Han Bianchi Consulting Unavailable Scooter Parish Consulting Unavailable Donna Bingham Consulting Unavailable Dalila, Mhd Nakul Consulting UnavailEliu Wilburn Consulting Unavailable Joselyn Perry Consulting Unavailable Chadwick Waldrop Consulting Unavailable Neris Almendarez Consulting Unavailable Eder Moreno Consulting Unavailable Amanda Breaux Consulting Unavailable Jozef Garcia Consulting Unavailable Isaak Juarez Consulting Unavailable FABY SPIVEY Consulting Unavailable Popeye Valdovinos Consulting Unavailable Tarah Rosas Consulting Unavailable Yaw Reyna Consulting Unavailable Caesar Salgado Attending Unavailable Sree Diggs Attending Unavailable Malys, Errol Primary Care Unavailable Dwight Jones Referring Unavailable Malys, Errol Primary Care Unavailable Dwight Brown Referring Unavailable Dwight Brown Attending Unavailable Pineda Hamilton Referring Unavailable Malys, Errol Primary Care Unavailable Pineda Hamilton Attending Unavailable Malys, Errol Primary Care Unavailable Malys, Errol Referring Unavailable Malys, Errol Attending Unavailable Malys, Errol Primary Care Unavailable Malys, Errol Referring Unavailable Malys, Errol Attending Unavailable Malys, Errol Primary Care Unavailable Malys, Errol Attending Unavailable Malys, Errol Referring Unavailable Cristobal, Valery Referring Unavailable Malys, Errol Primary Care Unavailable CristobalValery saldana Attending Unavailable Curtis TALENT DEVELOPMENT CONSULTANT, Bonita Attending Unavailable Curtis TALENT DEVELOPMENT CONSULTANT, Bonita Referring Unavailable Malys, Errol Primary Care Unavailable Caesar Salgado Attending Unavailable Parth, Le Valarie Referring Unavailable Alok Bartlett Consulting Unavailable Sree Diggs Attending Unavailable David Blackwell Referring Unavailable Dwight Jones Consulting Unavailable Néstor Kirkpatrick Attending Unavailable Malys, Errol Primary Care Unavailable Malys, Errol Primary Care Unavailable Mahin Coyle Attending Unavailable Issa Summers Attending Unavailable Malys, Errol Primary Care Unavailable Dwight Jones Attending Unavailable Malys, Errol Primary Care Unavailable Allyssa Gardiner Admitting Unavailable Allyssa Gardiner Attending Unavailable Allyssa Gardiner Consulting Unavailable Alisha Rogers Attending Unavailable Alisha Rogers Consulting Unavailable David Blackwell Attending Unavailable Caesar Salgado Consulting Unavailable Cherelle Almendarez Consulting Unavailable Cherelle Almendarez Admitting Unavailable David Blackwell Attending Unavailable Malys, Errol Primary Care Unavailable David Blackwell Consulting Unavailable Malys, Errol Primary Care Unavailable Alisha Rogers Attending Unavailable Malys, Errol Primary Care Unavailable Alisha Rogers Attending Unavailable Alisha Rogers Admitting Unavailable Alisha Rogers Consulting Unavailable Malys, Errol Primary Care Unavailable Alisha Rogers Attending Unavailable Alisha Rogers Admitting Unavailable Adeli, Amir Consulting Unavailable Malys, Errol Primary Care Unavailable Yaw Reyna Attending Unavailable David Blackwell Admitting Unavailable David Blackwell Referring Unavailable Elva, Isamar Consulting Unavailable Iam Estrada Consulting Unavailable Sena Myles Consulting Unavailable Ifrah Mejia Consulting Unavailable David Blackwell Consulting Unavailable Amador Mejia Consulting Unavailable Asmita Olguin Consulting Unavailable Milana Childers Consulting Unavailable Thad Gomez Consulting Unavailable Fifi Bowles Consulting Unavailable Jorge Luis Powers Consulting Unavailable Han Bianchi Consulting Unavailable Scooter Parish Consulting Unavailable Ridha, Mohamed Consulting Unavailable Zaghlojessicah, Mhd Nakul Consulting UnavailEliu Wilburn Consulting Unavailable Perry, Rami Consulting Unavailable Chadwick Waldrop Consulting Unavailable Neris Almendarez Consulting Unavailable Eder Moreno Consulting Unavailable Amanda Breaux Consulting Unavailable Jozef Garcia Consulting Unavailable Isaak Juarez Consulting Unavailable FABY SPIVEY Consulting Unavailable Popeye Valdovinos Consulting Unavailable Tarah Rosas Consulting Unavailable Malys, Errol Primary Care Unavailable Alisha Rogers Attending Unavailable Abdifatah, Allyssa Admitting Unavailable Gardiner, Allyssa Consulting Unavailable Malys, Errol Primary Care Unavailable Angel Fried Attending Unavailable David Blackwell Referring Unavailable Acevedo TALENT DEVELOPMENT CONSULTANT, Bonita Attending Unavailable Malys, Errol Primary Care Unavailable Malys, Errol Referring Unavailable Caesar Salgado Attending Unavailable Malys, Errol Referring Unavailable Malys, Errol Primary Care Unavailable Cherelle Almendarez Attending Unavailable Fernandez Pereira Attending Unavailabl e Malys, Errol Primary Care Unavailable Malys, Errol Primary Care Unavailable Yaw Reyna Consulting Unavailable Koram, Le Valarie Admitting Unavailable Friend, Sree Attending Unavailable Friend, Sree Consulting Unavailable An-nMarie Mercado Consulting Unavailable Yadira Dawson Consulting Unavailable Carleen Pa Consulting Unavailable Koram, Le Valarie Consulting Unavailable Malys, Errol Primary Care Unavailable Friend, Sree Attending Unavailable Malys, Errol Primary Care Unavailable Acevedo TALENT DEVELOPMENT CONSULTANT, Bonita Referring Unavailable Acevedo TALENT DEVELOPMENT CONSULTANT, Bonita Attending Unavailable Acevedo TALENT DEVELOPMENT CONSULTANT, Bonita Attending Unavailable Malys, Errol Primary Care Unavailable Acevedo TALENT DEVELOPMENT CONSULTANT, Bonita Referring Unavailable Malys, Errol Primary Care Unavailable Acevedo TALENT DEVELOPMENT CONSULTANT, Bonita Referring Unavailable Acevedo TALENT DEVELOPMENT CONSULTANT, Bonita Attending Unavailable Malys, Errol Primary Care Unavailable Malys, Errol Referring Unavailable Malys, Errol Attending Unavailable Koram, Le Valarie Attending Unavailable Malys, Errol Primary Care Unavailable Fernandez Pereira Referring Unavailabl e Fernandez Pereira Attending Unavailabl e Malys, Errol Primary Care Unavailable Baljinder Rodrigues Referring Unavailnishant e Baljinder Rodrigues Attending Unavailabl e Acevedo TALENT DEVELOPMENT CONSULTANT, Bonita Attending Unavailable Malys, Errol Primary Care Unavailable Malys, Errol Referring Unavailable Malys, Errol Primary Care Unavailable Acevedo TALENT DEVELOPMENT CONSULTANT, Bonita Attending Unavailable Malys, Errol Referring Unavailable Malys, Errol Primary Care Unavailable Curtis TALENT DEVELOPMENT CONSULTANT, Bonita Attending Unavailable Malys, Errol Referring Unavailable White, Vane L Attending Unavailable Malys, Errol Primary Care Unavailable Malys, Errol Referring Unavailable Malys, Errol Attending Unavailable Allergies Allergy Classification Reported Allergen(s) Allergy Type Date of Onset Reaction(s) Facility (20 sources) Adhesive Tape Allergy to substance (finding) [facility] 1st [address] Work Phone: (20 sources) Clarithromycin; Translations: [Biaxin] Drug Allergy [facility] 1st Floor [address] Work Phone: (20 sources) Doxycycline; Translations: [doxycycline] Drug Allergy 03-14-20 09 Hives, Itching [facility] (20 sources) Penicillins; Translations: [Penicillins] Allergy to drug (finding) 03-14-20 09 Hives, Itching [facility] Repository (20 sources) Sulfonamides (Antibiotic); Translations: [sulfa] Allergy to drug (finding) [facility] 1st Floor [address] Work Phone: (18 sources) Cefaclor; Translations: [Ceclor] Drug Allergy [facility] Work Phone: (20 sources) Biotin Drug Allergy 05-15-19 22 Unknown [facility] (20 sources) Cefaclor; Translations: [CEFACLOR] Drug Allergy 03-14-20 09 Hives, Itching [facility] (20 sources) Clarithromycin; Translations: [CLARITHROMYCIN] Drug Allergy 03-14-20 09 Hives, Itching [facility] (20 sources) Sulfonamides (Antibiotic); Translations: [SULFA (SULFONAMIDE ANTIBIOTICS)] Allergy to substance 03-14-20 09 Hives, Itching [facility] (20 sources) zolpidem; Translations: [ZOLPIDEM] Drug Allergy 05-15-19 22 Other [facility] (19 sources) Penicillins Allergy to substance 12-04-19 22 Hives [facility] (6 sources) Adhesive Tape; Translations: [ADHESIVE TAPE (ROSINS)] Propensity to adverse reactions (disorder) 04-16-20 09 [facility] Other [place] [facility] (11 sources) Adhesive agent; Translations: [ADHESIVE] Drug Intolerance 04-16-20 09 Hives [facility] (9 sources) Penicillins Drug Allergy 03-14-20 Hives, Itching [facility] Work Phone: (11 sources) Sulfamethoxazole; Translations: [SULFAMETHOXAZOLE] Drug Allergy 02-09-20 Unknown, Itching, Nausea/vomitin g [facility] Work Phone: (11 sources) Adhesive Tape-Silicones; Translations: [ADHESIVE TAPE-SILICONES] Propensity to adverse reactions 02-11-20 Itching, Other [facility] (3 sources) Penicillins Drug Allergy 02-09-20 Hives, Itching [facility] Work Phone: (4 sources) Adhesive Tape Propensity to adverse reactions to drug 12-03-19 [facility] (4 sources) Clarithromycin Allergy to substance 12-03-19 [facility] (4 sources) Penicillins Drug Allergy 12-03-19 [facility] (4 sources) Sulfonamides (Antibiotic) Drug Allergy 12-03-19 [facility] (1 source) Biotin Drug Allergy 11-16-19 [facility] Repository (1 source) Cefaclor Drug Allergy 01-06-20 [facility] Repository (1 source) Clarithromycin Drug Allergy 01-06-20 25 [facility] Repository (1 source) Penicillins Drug allergy (disorder) 01-06-20 [facility] Repository (1 source) zolpidem Drug Allergy 01-06-20 25 [facility] Repository Medications Current Medications Medication Drug Class(es) Dates Sig (Normalized) Sig (Original) acetaminophen 325 mg oral tablet (15 sources) Start: 06-04-2024 take 1 tablet by mouth every four hours as needed 650 mg, oral, Every 4 hours PRN, fever (temp greater than 38.0 C), pain mild (1-3), first line, greater than or equal to 38 C, Starting on 06/04/24 at 2118, If ordered PRN for pain, nurse is permitted to administer this medication for higher pain scores based on patient preference? Yes Start: 02-15-2019 End: 06-04-2024 take 2 tablets by mouth four times daily acetaminophen (Tylenol) 500 mg tablet Take 2 tablets (1,000 mg) by mouth 4 times a day. 02/15/2019 06/04/2024 Discontinued (Med List Cleanup) Start: 02-15-2019 take 2 tablets by mo uth every six hours acetaminophen (TYLENOL) 500 mg tablet Take 2 tablets by mouth every 6 hours. 60 Each 02/15/2019 Active take 2 tablets by mo uth every six hours for pain acetaminophen (Tylenol 8 HOUR) 650 mg ER tablet Indications: pain Take 2 tablets (650 mg) by mouth every 6 hours if needed (for pain. Not to exceed 3 MG in 24 HRS). Do not crush, chew, or split. Active albuterol 0.833 mg/ml / ipratropium bromide 0.167 mg/ml inhalation solution (20 sources) Anticholinergic, beta2-Adrenergic Agonist Start: 06-05-2024 3 mL, nebulizat ion, 3 times daily, First dose (after last modification) on 06/05/24 at 0900 Start: 06-04-2024 3 mL, nebuliza tion, Every 2 hour PRN, wheezing, shortness of breath, Starting on 06/04/24 at 2153 Start: 06-04-2024 End: 06-04-2024 Starting on 06/04/24 at 17 17, For 1 dose, Created by cabinet override Start: 08-23-2022 End: 03-11-2023 take 1 mL by inhalation every four hours Ipratropium-Albuterol Active 3 ML INHALATION Q4H 180 March 11, 2023 11:35am Start: 11-17-2018 End: 12-03-2021 take 1 mL by inhalation every eight hours Ipratropium-Albuterol Discontinued 3 ML INHALATION Q8H November 17, 2018 12:00am December 03, 2021 11:11am alendronic acid 70 mg oral t ablet (20 sources) Bisphosphonate alendronate (Fos amax) 70 mg tablet Take 1 tablet (70 mg) by mouth every 7 days. Active take 1 tablet by mouth every wee k Alendronate Sodium 70 MG Oral Tablet TAKE 1 TABLET ONCE WEEKLY. Quantity: 0 Refills: 0 Ordered: 10-Jan-2020 DO Active atorvastatin 80 mg oral tablet (20 sources) HMG-CoA Reductase Inhibitor Start: 06-01-2013 End: 06-04-2024 take 80 mg by mouth at bedtime Atorvastatin Active 80 MG PO AT BEDTIME June 01, 2013 1:00am azithromycin 250 mg oral tablet (3 sources) Macrolide Antimicrobial take 1 tablet by mouth once azithromycin (ZITHROMAX) 250 mg tablet Take 250 mg by mouth every Thursday, Thursday, and Thursday. Active baclofen 10 mg oral tablet (20 sources) gamma-Aminobutyric Acid-ergic Agonist Start: 02-11-2024 End: 06-28-2024 take 1 tablet by mouth twice daily baclofen (Lioresal) 10 mg tablet Indications: Secondary fibromyalgia Take 1 tablet (10 mg) by mouth 2 times a day. 60 tablet 3 02/11/2024 06/28/2024 Discontinued (Med List Cleanup) Start: 12-09-2022 take 1 tablet by emily three times daily, then take 2 tablets by mouth three times daily Baclofen 10 MG Oral Tablet Take 1 p.o. 3 times daily time 1 week may increase to 2 p.o. 3 times daily thereafter Quantity: 180 Refills: 11 Ordered: 09-Dec-2022 Vanna Hendricks MD Start : 09-Dec-2022 Active Start: 11-02-2017 End: 10-08-2018 take 1 tablet by mouth once daily baclofen (Lioresal) 10 mg tablet Take 1 tablet (10 mg) by mouth once daily. 11/02/2017 Active take 2 tablets by mo [facility] twice daily baclofen 10 mg tablet Indications: muscle spasticity of spinal origin Take 20 mg by mouth two times a day. Active benzocaine 15 mg / menthol 3.6 mg oral lozenge (1 source) Standardized Chemical Allergen Start: 06-04-2024 busPIRone hydrochloride 10 mg oral tablet (20 sources) Start: 10-22-2022 End: 06-04-2024 take 10 mg by mouth twice daily 10 mg, oral, 2 times daily, First dose on 06/05/24 at 0000 Start: 06-03-2022 take 7.5 mg by mouth twice doris ly Buspirone Active 7.5 MG PO TWICE A DAY June 03, 2022 1:00am Start: 06-03-2022 take 7.5 mg by mouth once Busp irone Active 7.5 MG PO ONCE June 03, 2022 1:00am clopidogrel 75 mg oral tablet (20 sources) [id number] Platelet Inhibitor Start: 06-01-2013 take 75 mg by mouth once daily 75 mg, oral, Daily, First dose on 06/05/24 at 0900 cyclobenzaprine hydrochloride 10 mg oral tablet (14 sources) Muscle Relaxant Start: 06-28-2024 End: 12-22-2024 take 0.5 tablet by mouth twice daily as needed for muscle spasms cyclobenzaprine (Flexeril) 10 mg tablet Indications: Secondary fibromyalgia , Postlaminectomy syndrome of lumbosacral region , Chronic idiopathic pain syndrome Take 0.5 tablets (5 mg) by mouth 2 times a day as needed for muscle spasms. 60 tablet 11/22/2024 12/22/2024 Active Start: 06-04-2024 take 5 mg by mouth t hree times daily as needed for muscle spasms 5 mg, oral, 3 times daily PRN, muscle spasms, Starting on 06/04/24 at 2330 Start: 06-04-2024 End: 06-04-2024 take 5 mg by mouth once 5 mg, oral, Once, On Sat 06/04 at 1845, For 1 dose take 5 mg by mouth t wice daily as needed for muscle spasms cyclobenzaprine (Flexeril) 10 MG tablet Take 5 mg by mouth 2 times daily as needed for muscle spasms. Active End: 06-28-2024 take 0.5 tablet by mouth three times daily as needed for muscle spasms cyclobenzaprine (Flexeril) 10 mg tablet Take 0.5 tablets (5 mg) by mouth 3 times a day as needed for muscle spasms. 06/28/2024 Discontinued (Reorder) dextromethorphan hydrobromide 2 mg/ml / guaiFENesin 20 mg/ml oral solution (1 source) Uncompetitive W-eqplse-M-aspartate Receptor Antagonist, Sigma-1 Agonist Start: 06-04-2024 take 5 mL by mouth every four hours as needed donepezil hydrochloride 5 mg oral tablet (12 sources) Start: 06-05-2024 Starting on 06/05/24 at 0017, For 1 dose, Created by cabinet override Start: 06-05-2024 take 10 mg by mouth once daily 10 mg, oral, Nightly, First dose on 06/05/24 at 0000 take 1 tablet by emily th once daily donepezil (Aricept) 10 MG tablet Take 10 mg by mouth Nightly. Active DULoxetine 30 mg delayed release oral capsule (20 sources) Serotonin and Norepinephrine Reuptake Inhibitor Start: 06-06-2024 take 60 mg by mouth twice daily 60 mg, oral, 2 times daily, First dose (after last modification) on 06/06/24 at 2100, Do not crush or chew. Start: 06-05-2024 End: 06-06-2024 take 60 mg by mouth once daily 60 mg, oral, Daily, Fir st dose on 06/05/24 at 0900, Do not crush or chew. Start: 11-29-2022 End: 03-02-2024 take 1 capsule by mouth once daily DULoxetine (CYMBALTA) 60 mg capsule Take 1 capsule by mouth once daily. 11/29/2022 03/02/2024 Discontinued (Duplicate Entry) Start: 06-19-2020 take 60 mg by mouth twice malou y Duloxetine Active 60 MG PO TWICE A DAY June 19, 2020 1:00am Start: 11-17-2018 End: 12-01-2018 take 60 mg by mouth once daily Duloxetine Discontinued 60 MG PO DAILY November 17, 2018 12:00am December 01, 2018 10:34am take 2 tablets by mo [facility] once daily DULoxetine (Cymbalta) [address] capsule 2 tab(s) orally once a day Active Cymbalta 30 MG O ral Capsule Delayed Release Particles Refills: 0 Active 0.4 ml enoxaparin sodium 100 mg/ml prefilled syringe (1 source) Low Molecular Weight Heparin Start: 06-04-2024 inject 40 mg by subcutaneous injection every twenty-four hours 40 mg, subcutaneous, Every 24 hours, First dose on 06/04/24 at 2145, Indications: deep vein thrombosis prevention ergocalciferol 1.25 mg oral capsule (10 sources) Provitamin D2 Compound take 1 capsule by mouth every week ergocalciferol (Vitamin D2) 1.25 MG (10941 UT) capsule Take 1.25 mg by mouth 1 (one) time per week. Active take 1 capsule by mouth every we ek ergocalciferol (Vitamin D-2) 1.25 MG (84216 UT) capsule Take 1 capsule (1,250 mcg) by mouth 1 (one) time per week. On Active fluticasone propionate 0.05 mg/actuat metered dose nasal spray (1 source) Corticosteroid Start: 06-05-2024 2 spray, Each Nostril, Daily, First dose on Thu06/05/24 at 1215, Shake gently. Before first use, prime pump (press 6 times until fine spray appears). After use, clean tip and replace cap. fluticasone / salmeterol (6 sources) Corticosteroid, beta2-Adrenergic Agonist take 1 puff(s) by mouth twice daily fluticasone propion-salmetero L (Advair Diskus) 250-50 mcg/dose diskus inhaler Inhale 1 puff 2 times a day. Rinse mouth with water after use to reduce aftertaste and incidence of candidiasis. Do not swallow. Active 30 actuat fluticasone furoate 0.2 mg/actuat / vilanterol 0.025 mg/actuat dry powder inhaler (2 sources) Corticosteroid, beta2-Adrenergic Agonist Start: 06-05-2024 End: 06-06-2024 take 1 puff(s) by mouth once daily 1 puff, inhalation, Daily RT, First dose (after last modification) on Thu06/07/24 at 0900, Rinse mouth with water after use to reduce aftertaste and incidence of candidiasis. Do not swallow. furosemide 40 mg oral tablet (20 sources) Loop Diuretic Start: 09-24-2024 furosemide (Lasix) 40 mg tablet 09/24/2024 Active Start: 02-06-2023 End: 06-04-2024 take 1 tablet by mouth once daily furosemide (LASIX) 40 mg tablet Take 1 tablet by mouth once daily. 03/02/2024 Active Start: 02-06-2023 End: 03-02-2024 furosemide (Lasix) 40 mg tab let 02/06/2023 Active Start: 08-23-2022 take 60 mg by mouth once daily Furosemide Active 60 MG PO DAILY August 23, 2022 12:00am furosemide (Lasi x) 40 MG tablet Take 60 mg by mouth daily. Active End: 06-04-2024 take 1 tablet by mouth once daily furosemide (Lasix) 20 mg tablet Take 1 tablet (20 mg) by mouth once daily. 06/04/2024 Discontinued (Med List Cleanup) 12 hr guaiFENesin 600 mg extended release oral tablet (16 sources) Start: 06-04-2024 take 600 mg by mouth twice daily 600 mg, oral, 2 times daily, First dose on 06/04/24 at 2145, Administer with plenty of fluids to ensure proper action. Do not crush, chew, or split. Start: 03-11-2023 take 1200 mg by mout h every twelve hours Guaifenesin Active 1200 MG PO Q12H 60 March 11, 2023 1:00am Start: 10-23-2020 take 1200 mg by mout h every twelve hours Guaifenesin Active 1200 MG PO Q12H 60 October 23, 2020 12:00am Haloperidol (7 sources) Typical Antipsychotic Start: 06-04-2024 haloperidol lact ate (Haldol) 5 mg/mL injection Inject 1 mL (5 mg) into the muscle 3 times a day as needed for agitation. Active hydroxychloroquine sulfate 200 mg oral tablet (19 sources) Antimalarial, Antirheumatic Agent Start: 08-23-2022 End: 06-04-2024 take 200 mg by mouth twice daily Hydroxychloroquine Active 200 MG PO TWICE A DAY August 23, 2022 12:00am hydrOXYzine hydrochloride 50 mg oral tablet (20 sources) Antihistamine Start: 09-24-2024 hydrOXYzine HCL (Atarax) 50 mg tablet 09/24/2024 Active Start: 12-01-2018 End: 06-04-2024 hydrOXYzine HCL (Atarax) 50 mg tablet 11/01/2022 06/04/2024 Discontinued (Med List Cleanup) take 1 capsule by mo uth once daily hydrOXYzine pamoate (VISTARIL) 50 mg capsule Take 50 mg by mouth once daily. Active take 2 capsules by m outh at bedtime hydrOXYzine Pamoate 50 MG Oral Capsule TAKE 2 CAPSULE Bedtime Quantity: 0 Refills: 0 Ordered: 10-Jan-2020 DO Active itraconazole 100 mg oral capsule (1 source) Azole Antifungal Start: 01-24-2025 End: 04-24-2025 take 2 capsules by mouth twice daily itraconazole (Sporanox) 100 MG capsule Indications: Pulmonary nodules/lesions, multiple , Bronchiectasis without complication (HCC) , Smoker , Chronic pulmonary histoplasmosis capsulati (HCC) , Pulmonary emphysema, unspecified emphysema type (HCC) Take 2 capsules (200 mg) by mouth 2 times daily. 200 mg three times daily for first 3 days, then 200 mg po BID afterwards. Duration planned > 6 months 120 capsule 5 01/24/2025 04/24/2025 Active lactose-reduced food (ENSURE ORAL) (6 sources) lactose-reduced food (ENSURE ORAL) Take 1 bottle by mouth 4 times a day before meals. Active levothyroxine sodium 0.125 mg oral tablet (20 sources) l-Thyroxine Start: 02-11-2024 take 1 tablet by mouth before mealtime levothyroxine (Synthroid, Levoxyl) 125 mcg tablet Take 1 tablet (125 mcg) by mouth early in the morning.. On an empty stomach @ 06:00. Must be taken on an empty stomach, 2 hours before meals. 02/11/2024 Active Start: 10-29-2022 End: 06-04-2024 levothyroxine (Synthroid, Le voxyl) 50 mcg tablet Take 120 mcg by mouth early in the morning.. Take with a 20mcg tablet 10/29/2022 06/04/2024 Discontinued (Med List Cleanup) Start: 10-29-2022 levothyroxine (Synthroid, Levoxyl) 50 mcg tablet Take with a 20mcg tablet 10/29/2022 Active Start: 08-23-2022 End: 03-02-2024 take 50 ug by mouth once daily Levothyroxine Active 50 MCG PO DAILY August 23, 2022 12:00am Start: 11-17-2018 levothyroxine 88 mcg capsule Active 100 MCG PO DAILY November 17, 2018 12:00am Start: 09-30-2018 End: 11-17-2018 take 88 ug by mouth once daily Levothyroxine Discontin ued 88 MCG PO DAILY September 30, 2018 12:00am November 17, 2018 8:51am take 1 capsule by [facility] once daily before breakfast levothyroxine 125 mcg cap Take 125 mcg by mouth daily before breakfast. Active take 1 tablet by emily th once daily levothyroxine (Synthroid, Levoxyl) 100 mcg tablet Take 1 tablet (100 mcg) by mouth once daily. Active linaclotide 0.072 mg oral capsule (3 sources) Guanylate Cyclase-C Agonist take 1 capsule by mouth once daily 30 minutes before mealtime linaCLOtide (LINZESS) 72 mcg capsule Take 1 capsule by mouth once daily. Take capsule on an empty stomach at least 30 minutes before a meal at the same time each day. Capsule should be swallowed whole. DO NOT chew or crush. Active liothyronine sodium 0.005 mg oral tablet (20 sources) l-Triiodothyronine Start: liothyronine (Cytomel) 5 mcg tablet 09/26/2024 Active Start: 08-23-2022 take 25 ug by mouth once daily Liothyronine Active 25 MCG PO DAILY August 23, 2022 12:00am Start: 08-20-2022 End: 06-04-2024 liothyronine (Cytomel) 25 mc g tablet 08/20/2022 06/04/2024 Discontinued (Med List Cleanup) take 2 tablets by mo [facility] once daily liothyronine (CYTOMEL) 5 mcg tablet Take 10 mcg by mouth once daily. Active take 1 tablet by emily twice daily liothyronine (Cytomel) 5 mcg tablet Take 1 tablet (5 mcg) by mouth twice a day. Active loratadine 10 mg oral tablet (20 sources) Start: 06-05-2022 End: 03-02-2024 take 10 mg by mouth once daily Loratadine Active 10 MG PO DAILY June 05, 2022 1:00am Start: 11-17-2018 End: 06-05-2022 take 10 mg by mouth once daily Loratadine Discontinued 10 MG PO DAILY June 03, 2022 10:40am June 05, 2022 9:47am LORazepam 0.5 mg oral tablet (20 sources) Benzodiazepine Start: 06-04-2024 Start: 11-17-2018 Lorazepam (Ati van) 1 mg tablet Active 1 MG PO 2 to 3 times per day November 17, 2018 12:00am take 1 tablet by emily every eight hours as needed LORazepam (ATIVAN) 1 mg tablet Take 1 mg by mouth three times daily as needed. Active methylPREDNISolone (2 sources) Corticosteroid Start: 06-07-2024 End: 06-13-2024 methylPREDNISolone (Medrol Dospak) 4 mg tablets Indications: Chronic obstructive pulmonary disease, unspecified COPD type (Multi) Take as directed on package. 06/07/2024 06/13/2024 Active metoprolol tartrate 25 mg oral tablet (20 sources) beta-Adrenergic Karine Start: 06-01-2013 metoprolol tartrate (Lopressor) 25 mg tablet 09/24/2024 Active Start: 06-01-2013 take 12.5 mg by mout h twice daily Metoprolol Tartrate Active 12.5 MG PO TWICE A DAY June 01, 2013 1:00am End: 06-04-2024 take 1 tablet by mouth twice daily metoprolol succinate XL (Toprol-XL) 25 mg 24 hr tablet Take 1 tablet (25 mg) by mouth twice a day. 06/04/2024 Discontinued (Med List Cleanup) take 2 tablets by mo uth once daily Metoprolol Tartrate 25 MG Oral Tablet TAKE 2 TABLET Daily Quantity: 0 Refills: 0 Ordered: 10-Jan-2020 DO Active midodrine hydrochloride 5 mg oral tablet (11 sources) alpha-Adrenergic Agonist Start: 06-05-2024 take 1 dose by mouth every four hours at dinner 5 mg, oral, 2 times daily, First dose on 06/05/24 at 0000, Avoid dosing after the evening meal or within 4 hours of bedtime to prevent supine hypertension unless indicated for vasopressor sparing in the ICU. Start: 05-09-2024 take 1 tablet by emily th twice daily, then take 6 tablets by mouth in the evening midodrine (Proamatine) 5 mg tablet Take 1 tablet (5 mg) by mouth 2 times a day. Do not give last dose after 6 PM. 05/09/2024 Active mirtazapine 15 mg oral tablet (14 sources) Start: 08-10-2024 take 1 tablet by mouth once daily at bedtime mirtazapine (Remeron) 15 mg tablet Take 1 tablet (15 mg) by mouth once daily at bedtime. 08/10/2024 Active Start: 06-19-2020 take 30 mg by mouth at bedtime Mirtazapine Active 30 MG PO AT BEDTIME June 19, 2020 1:00am take 1 tablet by emily th once daily at bedtime mirtazapine (REMERON) 15 mg tablet Take 15 mg by mouth daily at bedtime. Active take 1 tablet by emily th once daily at bedtime Remeron SolTab 30 MG Oral Tablet Disintegrating DISSOLVE ONE TABLET ON TONGUE AND SWALLOW WITH OR WITHOUT WATER ONCE DAILY AT BEDTIME. Refills: 0 Active Mometasone-Formoterol (Dulera) 100-5 mcg/actuation HFA aerosol inhaler (7 sources) Start: 12-03-2021 take 1 puff(s) by inhalation twice daily Mometasone-Formoterol (Dulera) 100-5 mcg/actuation HFA aerosol inhaler Active 2 PUFF INHALATION TWICE A DAY 3 December 03, 2021 10:25am Start: 12-03-2021 take 1 puff(s) by in halation twice daily Mometasone-Formoterol (Dulera) 100-5 mcg/actuation HFA aerosol inhaler Active 2 PUFF INHALATION TWICE A DAY 3 December 03, 2021 11:25am Mometasone-Formoterol (Duler a) 200-5 mcg/actuation HFA aerosol inhaler (18 sources) Start: 03-11-2023 Mometasone-For moterol (Dulera) 200-5 mcg/actuation HFA aerosol inhaler Active 2 INH INHALATION TWICE A DAY 3 March 11, 2023 11:35am Start: 03-11-2023 Mometasone-For moterol (Dulera) 200-5 mcg/actuation HFA aerosol inhaler Active 2 INH INHALATION TWICE A DAY 3 March 11, 2023 10:35am Start: 09-24-2022 End: 03-11-2023 Mometasone-Formoterol (Duler a) 200-5 mcg/actuation HFA aerosol inhaler Discontinued 2 INH INHALATION TWICE A DAY 3 September 24, 2022 12:00am March 11, 2023 11:36am Start: 09-24-2022 End: 03-11-2023 Mometasone-Formoterol (Duler a) 200-5 mcg/actuation HFA aerosol inhaler Discontinued 2 INH INHALATION TWICE A DAY 3 September 23, 2022 11:00pm March 11, 2023 10:36am Start: 09-24-2022 Mometasone-For moterol (Dulera) 200-5 mcg/actuation HFA aerosol inhaler Active 2 INH INHALATION TWICE A DAY 3 September 24, 2022 12:00am montelukast 10 mg oral tablet (20 sources) Leukotriene Receptor Antagonist Start: 09-24-2024 montelukast (Singulair) 10 mg tablet 09/24/2024 Active Start: 04-12-2019 End: 06-04-2024 take 10 mg by mouth once daily in the evening Montelukast Discontinued 10 MG PO EVERY EVENING 90 December 16, 2021 8:56am June 03, 2022 10:43am naloxone hydrochloride 40 mg/ml nasal spray (11 sources) Opioid Antagonist Start: 03-05-2022 naloxone (Na rcan) 4 mg/0.1 mL nasal spray Administer into affected nostril(s). 03/05/2022 Active Nutritional Supplements (ENSURE ACTIVE PO) (4 sources) Nutritional Supplements (ENSURE ACTIVE PO) Take 1 Bottle by mouth 4 times daily. Active nystatin [id number] unt/ml oral suspension (7 sources) Polyene Antifungal Start: 03-11-2023 Nystatin Active 5 ML MUCOUS MEM THREE TIMES A DAY March 11, 2023 1:00am swish and swallow 5 cc three times per day for 10 days omeprazole 40 mg delayed release oral capsule (20 sources) Proton Pump Inhibitor Start: 06-21-2019 take 40 mg by mouth once daily Omeprazole Active 40 MG PO DAILY June 21, 2019 1:00am Start: 07-20-2018 End: 11-17-2018 take 40 mg by mouth once daily Omeprazole Discontinued 40 MG PO DAILY July 20, 2018 8:49am November 17, 2018 8:59am Start: 06-01-2013 End: 07-20-2018 take 20 mg by mouth once daily Omeprazole Discontinued 20 MG PO DAILY June 01, 2013 1:00am July 20, 2018 8:53am 2 ml ondansetron 2 mg/ml injection (1 source) Serotonin-3 Receptor Antagonist Start: 06-04-2024 take 4 mg intravenously every eight hours as needed oxygen (O2) therapy (3 sources) Start: 06-05-2024 inhalation, Continuous PRN - O2/gases, other, Starting on 06/05/24 at 2303, Device: Non-Invasive Ventilation, Rate in liters per minute: 4 LPM, FIO2: 36, Keep O2 Sat Above: 90% Start: 06-05-2024 inhalation, Co ntinuous PRN - O2/gases, other, Starting on 06/05/24 at 2100, Titrate to maintain SpO2 greater than 90% and less than 95% Baseline 3LPM, Device: Nasal Cannula, Rate in liters per minute: 3 LPM, Keep O2 Sat Above: 90% Start: 06-04-2024 End: 06-04-2024 inhalation, Continuous - Inh alation, First dose on 06/04/24 at 2145, Titrate to maintain SpO2 greater than 90% and less than 95%., Device: Nasal Cannula, Rate in liters per minute: 2 LPM, Keep O2 Sat Above: 90% pantoprazole 40 mg delayed release oral tablet (20 sources) Proton Pump Inhibitor Start: 06-05-2024 take 40 mg by mouth once daily before breakfast 40 mg, oral, Daily before breakfast, First dose on 06/05/24 at 0700, Do not crush, chew, or split. Start: 05-06-2023 take 40 mg by mouth twice daily Pantoprazole Active 40 MG PO TWICE A DAY 60 May 06, 2023 1:00am Start: 12-01-2018 End: 12-14-2018 take 40 mg by mouth once daily Pantoprazole Discontinu ed 40 MG PO DAILY December 01, 2018 12:00am December 14, 2018 2:04pm take 40 mg by mouth once daily in the morning pantoprazole (PROTONIX) 40 mg grps Indications: gastroesophageal reflux disease Take 40 mg by mouth daily at 6 am. Active take 1 tablet by emily th once daily before mealtime pantoprazole (ProtoNix) 20 mg EC tablet Take 1 tablet (20 mg) by mouth once daily in the morning. Take before meals. Do not crush, chew, or split. Active polyethylene glycol 3350 [id number] mg powder for oral solution (1 source) Osmotic Laxative Start: 06-04-2024 take 17 g by mouth every twenty-four hours as needed predniSONE 20 mg oral tablet (11 sources) Start: 06-05-2024 take 40 mg by mouth once daily 40 mg, oral, Daily, First dose on 06/05/24 at 1245 Start: 03-30-2023 End: 05-06-2023 take 40 mg by mouth at breakfast Prednisone Active 40 MG PO WITH BREAKFAST 4 May 06, 2023 1:00am pregabalin 50 mg oral capsule (20 sources) Start: 08-23-2022 take 50 mg by mouth once daily Pregabalin Active 50 MG PO DAILY August 23, 2022 12:00am Start: 06-13-2022 End: 03-02-2024 take 1 capsule by mouth three times daily Pregabalin 50 MG Oral Capsule 1 p.o. 3 times daily Quantity: 90 Refills: 2 Ordered: 09-Sep-2022 Vanna Hendricks MD Start : 13-Jun-2022 Active Start: 06-13-2022 Pregabalin 50 MG Oral Capsule 1 p.o. at bedtime x3 days then 1 in AM and 1 in the afternoon x3 days and finally 1 p.o. 3 times daily Quantity: 90 Refills: 2 Ordered: 13-Jun-2022 Vanna Hendricks MD Start : 13-Jun-2022 Active QUEtiapine 25 mg oral tablet (20 sources) Atypical Antipsychotic Start: 06-05-2024 Startin g on 06/05/24 at 0018, For 1 dose, Created by milli luo Start: 12-01-2022 QUEtiapine (SE ROquel) 200 mg tablet Take 25 mg by mouth once daily at bedtime. 12/01/2022 Active Start: 12-01-2022 End: 03-02-2024 QUEtiapine (SEROquel) 200 mg tablet 12/01/2022 Active Start: 06-19-2020 take 100 mg by mouth at bedtim e Quetiapine Active 100 MG PO AT BEDTIME June 19, 2020 1:00am temazepam 7.5 mg oral capsule (2 sources) Benzodiazepine temazepam (Ashley ril) 7.5 mg capsule Take 4 capsules (30 mg) by mouth as needed at bedtime for sleep. Active topiramate 50 mg oral tablet (20 sources) Start: 09-26-2024 End: 06-04-2024 topiramate (Topamax) 50 mg tablet 09/26/2024 Active Start: 08-23-2022 take 50 mg by mouth at bedtime Topiramate Active 50 MG PO AT BEDTIME August 23, 2022 12:00am topiramate 50 MG tablet Take 50 mg by mouth as needed. Active traMADol hydrochloride 50 mg oral tablet (8 sources) Opioid Agonist Start: 12-03-2022 take 1 tablet by mouth every eight hours as needed traMADol (Ultram) 50 mg tablet Take 1 tablet (50 mg) by mouth every 8 hours if needed for pain. 11/28/2024 Active Completed/Discontinued Medications Medication Drug Class(es) Dates Sig (Normalized) Sig (Original) acetaminophen 325 mg / oxyCODONE hydrochloride 5 mg oral tablet (20 sources) Opioid Agonist Start: 07-10-2020 End: 07-17-2020 take 2 tablets by mouth every eight hours as needed Oxycodone-Acetamino phen Discontinued 2 TABLET PO EVERY 8 HOURS NEEDED 10 July 10, 2020 July 17, 2020 12:03am Start: 06-26-2020 End: 07-03-2020 take 2 tablets by mouth every eight hours as needed Oxycodone-Acetaminophen Discontinued 2 TABLET PO EVERY 8 HOURS NEEDED 13 11June 26, 2020 July 03, 2020 1:02am Start: 12-20-2018 End: 12-25-2018 take 1 tablet by mouth every six hours as needed Oxycodone-Acetaminophen Discontinued 1 - 2 TABLET PO EVERY 6 HOURS NEEDED 19 08December 20, 2018 December 25, 2018 12:09am Start: 09-30-2018 End: 11-17-2018 take 1 tablet by mouth every six hours as needed Oxycodone-Acetaminophen Discontinued 1 - 2 TABLET PO EVERY 6 HOURS NEEDED September 30, 2018 12:00am November 17, 2018 9:00am [id number] 200 actuat albuterol 0.09 mg/actuat metered dose inhaler (20 sources) beta2-Adrenergic Agonist Start: 01-09-2023 End: 06-04-2024 albuterol 90 mcg/actuation inhaler 01/09/2023 06/04/2024 Discontinued (Med List Cleanup) Start: 06-19-2020 End: 03-11-2023 take 1 puff(s) by inhalation every six hours as needed Albuterol Sulfate Discontinued 1 - 2 PUFF INHALATION EVERY 6 HOURS NEEDED 2 March 06, 2023 9:54am March 11, 2023 11:36am take 2 puff(s) by in halation every six hours as needed for wheezing albuterol 108 (90 Base) MCG/ACT inhaler Inhale 2 puffs every 6 hours as needed for wheezing. Active take 2 puff(s) by in halation every four hours albuterol 90 mcg/actuation inhaler Inhale 2 puffs every 4 hours if needed for shortness of breath. Active take 1-2 puff(s) by inhalation every six hours as needed for chronic obstructive pulmonary disease albuterol HFA (PROVENTIL HFA, VENTOLIN HFA) 90 mcg/actuation inhaler Inhale 1-2 Puffs as instructed every 6 hours as needed for wheezing/shortness of breath (COPD). Active albuterol sulfat e (Proair Digihaler) 90 mcg/actuation aero powdr breath act w/sensor inhaler Inhale. Active albuterol sulfat e (Proair Digihaler) 90 mcg/actuation aero powdr breath act w/sensor inhaler Inhale. 0 Active ProAir Digihaler AEPB Refills: 0 Active ascorbic acid 60 mg / beta carotene 5000 unt / copper sulfate 40 mg / dl-alpha tocopheryl acetate 30 unt / sodium selenite 0.04 mg / zinc oxide 40 mg oral tablet (2 sources) Vitamin C Centrum TABS Refills: 0 Active aspirin 325 mg oral tablet (20 sources) Platelet Aggregation Inhibitor, Nonsteroidal Anti-inflammatory Drug Start: 4 End: 9 take 325 mg by mouth once daily Aspirin Discontinued 325 MG PO DAILY@0800 June 01, 2013 1:00am October 08, 2018 11:56am 10 ml bupivacaine hydrochloride 7.5 mg/ml injection (2 sources) Amide Local Anesthetic Start: End: bupivacaine PF (Marcaine) injection 0.75 % Start: 12-01-2024 End: 12-01-2024 37.5 mg (5 mL), injection, O nce, On [place] 12/01/24 at 1145, For 1 dose 24 hr buPROPion hydrochloride 150 mg extended release oral tablet (20 sources) Aminoketone Start: 06-19-2020 End: 12-03-2021 take 150 mg by mouth once daily Bupropion Hcl Discontinued 150 MG PO DAILY June 19, 2020 1:00am December 03, 2021 11:09am Start: 09-30-2018 End: 11-17-2018 take 300 mg by mouth once daily Bupropion Hcl Disconti nued 300 MG PO DAILY September 30, 2018 12:00am November 17, 2018 8:52am take 1 tablet by [facility] once daily Wellbutrin SR 150 MG Oral Tablet Extended Release 12 Hour TAKE 1 TABLET DAILY DIRECTED. Quantity: 0 Refills: 0 Ordered: 10-Jan-2020 DO Active cefdinir 300 mg oral capsule (20 sources) Cephalosporin Antibacterial Start: 10-08-2018 End: 11-17-2018 take 600 mg by mouth once daily Cefdinir Discontinued 600 MG PO DAILY October 08, 2018 12:00am November 17, 2018 8:59am start on 10/09/18 Centrum TABS (18 sources) Centrum TABS Quantity: 0 Refills: 0 Ordered: 10-Jan-2020 DO Active cholecalciferol 1.25 mg oral capsule (20 sources) Vitamin D Start: 04-15-2024 End: 06-06-2024 cholecalciferol (Vitamin D-3) 50,000 unit capsule Take 1 capsule (50,000 Units) by mouth every 7 days. 04/15/2024 06/06/2024 Discontinued (Entered in Error) Start: 11-17-2018 End: 06-04-2024 take 1 capsule by mouth once daily cholecalciferol (vitamin D3) 1,000 unit capsule Active 1000 UNIT PO DAILY November 17, 2018 12:00am take 1 capsule by [facility] every week cholecalciferol (Vitamin D-3) 1.25 mg (50,000 units) capsule Take 1 capsule (1.25 mg) by mouth 1 (one) time per week. Active take 1 capsule by [facility] every week cholecalciferol, Vitamin D3, (VITAMIN D3) 1,250 mcg (50,000 unit) cap capsule Take 50,000 Units by mouth one time a week. Active [facility] Vitamin D3 1 000 UNIT CAPS TAKE DIRECTED. Quantity: 0 Refills: 0 Ordered: 10-Jan-2020 DO Active [facility] Vitamin D3 1 000 UNIT CAPS TAKE DIRECTED. Refills: 0 Active 1 ml denosumab 60 mg/ml prefilled syringe (2 sources) RANK Ligand Inhibitor End: 06-04-2024 denosumab (Prolia) 60 mg/mL syringe Inject 1 mL (60 mg) under the skin every 6 months. 06/04/2024 Discontinued (Med List Cleanup) diclofenac sodium 75 mg delayed release oral tablet (20 sources) Nonsteroidal Anti-inflammatory Drug Start: 08-23-2022 End: 05-06-2023 take 75 mg by mouth twice daily Diclofenac Sodium Discontinued 75 MG PO TWICE A DAY August 23, 2022 12:00am May 06, 2023 1:07pm Start: 06-01-2013 End: 10-08-2018 take 75 mg by mouth twice daily at mealtime Diclofenac Sodium Discontinued 75 MG PO TWICE DAILY WITH MEALS June 01, 2013 1:00am October 08, 2018 11:56am End: 06-04-2024 take 2 tablets by mouth twice daily diclofenac (Voltaren) 75 mg EC tablet Take 2 tablets (150 mg) by mouth 2 times a day. 06/04/2024 Discontinued (Med List Cleanup) docusate sodium 100 mg oral tablet (20 sources) Start: 09-30-2018 End: 12-01-2018 take 100 mg by mouth once daily Docusate Sodium Discontinued 100 MG PO DAILY September 30, 2018 12:00am December 01, 2018 10:34am Dulera AERO (18 sources) Dulera AERO Quantity: 0 Refills: 0 Ordered: 10-Jan-2020 DO Active 72 hr fentaNYL 0.025 mg/hr transdermal system (20 sources) Opioid Agonist Start: 06-01-2013 End: 06-12-2013 Fentanyl Discontinued 25 MCG TRANSDERM. Q72H June 01, 2013 1:00am June 12, 2013 4:43pm fluconazole 200 mg oral tablet (2 sources) Azole Antifungal End: 03-02-2024 take 1 tablet by mouth every week fluconazole (DIFLUCAN) 200 mg tablet Take 200 mg by mouth one time a week. 03/02/2024 Discontinued (Course of therapy completed) FLUoxetine 20 mg oral capsule (20 sources) Serotonin Reuptake Inhibitor Start: 06-01-2013 End: 11-17-2018 take 40 mg by mouth twice daily Fluoxetine Discontinued 40 MG PO TWICE A DAY June 01, 2013 1:00am November 17, 2018 8:51am 60 actuat formoterol fumarate 0.005 mg/actuat / mometasone furoate 0.2 mg/actuat metered dose inhaler (20 sources) Corticosteroid, beta2-Adrenergic Agonist Start: 12-14-2022 End: 06-04-2024 Dulera 200-5 mcg/actuation inhaler 12/14/2022 06/04/2024 Discontinued (Med List Cleanup) Start: 11-17-2018 End: 12-03-2021 take 1 puff(s) by inhalation once daily Mometasone-Formoterol (Dulera) 100-5 mcg/actuation HFA aerosol inhaler Discontinued 2 PUFF INHALATION DAILY November 08, 2020 9:50am May 15, 2021 1:54pm take 2 puff(s) by mo uth twice daily mometasone-formoterol (Dulera) 100-5 MCG/ACT inhaler Inhale 2 puffs 2 times daily. Rinse mouth with water after use to reduce aftertaste and incidence of candidiasis. Do not swallow. Active End: 06-06-2024 take 2 puff(s) by inhalation twice daily mometasone-formoterol (Dulera) 50-5 mcg/actuation HFA aerosol inhaler inhaler Inhale 2 puffs twice a day. Patient states dose is 200-5 mcg/actuation 06/06/2024 Discontinued (Entered in Error) Dulera AERO Refi lls: 0 Active gabapentin 300 mg oral capsule (20 sources) Anti-epileptic Agent Start: 06-01-2013 End: 07-20-2018 take 300 mg by mouth three times daily Gabapentin Discontinued 300 MG PO THREE TIMES A DAY June 01, 2013 1:00am July 20, 2018 8:49am Iron Ucr-Tpe-Um-C-B12- Ca-Succ (Iron 21/7 Tablet) 1 EACH tablet (20 sources) Start: 06-01-2013 End: 06-01-2013 Iron Xdv-Axt-Jz-C-B12-C a-Succ (Iron 21/7 Tablet) 1 EACH tablet Discontinued 1 EACH PO June 01, 2013 12:00am June 01, 2013 9:42am Start: 06-01-2013 End: 06-01-2013 Iron Tvc-[id number]-Zuf c (Iron 21/7 Tablet) 1 EACH tablet Discontinued 1 EACH PO June 01, 2013 1:00am June 01, 2013 10:42am Ketamine (18 sources) General Anesthetic Start: 02-21-2021 Ketamine HC l Powder Ketamine 100 mg + lidocaine 40 mg nasal spray, 1 puff nasally 4 times daily as neededDsp# 12 ml Quantity: 1 Refills: 5 Ordered: 23-Oct-2022 Alexandrea Paul Start : 21-Feb-2021 Active Please fax to [facility] pharmacy Start: 02-21-2021 Ketamine HCl P owder Ketamine 100 mg + lidocaine 40 mg + Amitriptyline 10 mg nasal spray, 1 puff nasally 4 times daily as neededDsp# 20 ml with 5 refills Quantity: 1 Refills: 5 Ordered: 29-Jul-2022 Vanna Hendricks MD Start : 21-Feb-2021 Active Please fax to [facility] pharmacy Start: 02-21-2021 Ketamine HCl P owder Ketamine 100 mg + lidocaine 40 mg + Amitriptyline 10 mg nasal spray, 1 puff nasally 4 times daily as neededDsp# 20 ml with 5 refills Quantity: 1 Refills: 5 Ordered: 13-Jan-2022 Vanna Hendricks MD Start : 21-Feb-2021 Active Please fax to [facility] Start: 02-21-2021 Ketamine HCl P owder Ketamine 100 mg + lidocaine 40 mg + Amitriptyline 10 mg nasal spray, 1 puff nasally 4 times daily as neededDsp# 20 ml with 5 refills Quantity: 1 Refills: 5 Ordered: 22-Aug-2021 Vanna Hendricks MD Start : 21-Feb-2021 Active Please fax to [facility] pharmacy Start: 02-21-2021 Ketamine HCl P owder Ketamine 100 mg + lidocaine 40 mg + Amitriptyline 10 mg nasal spray, 1 puff nasally 4 times daily as neededDsp# 20 ml with 5 refills Quantity: 1 Refills: 5 Ordered: 21-Aug-2021 Vanna Hendricks MD Start : 28-Oct-2021 Active Please fax to [facility] Start: 02-21-2021 Ketamine HCl P owder Ketamine 100 mg + lidocaine 40 mg + Amitriptyline 10 mg nasal spray, 1 puff nasally 4 times daily as neededDsp# 20 ml with 5 refills Quantity: 1 Refills: 5 Ordered: 21-Feb-2021 Vanna Hendricks MD Start : 21-Feb-2021 Active Please fax to [facility] 1 ml ketorolac tromethamine 30 mg/ml injection (2 sources) Nonsteroidal Anti-inflammatory Drug, Cyclooxygenase Inhibitor Start: 06-28-2024 End: 06-28-2024 ketorolac (Toradol) injection 30 mg Start: 06-04-2024 End: 06-04-2024 15 mg, intravenous, Once, On 06/04/24 at 1845, For 1 dose 150 ml levoFLOXacin 5 mg/ml injection (20 sources) Quinolone Antimicrobial Start: 06-04-2024 End: 06-06-2024 750 mg, intravenous, at 100 mL/hr, Administer over 90 Minutes, Every 48 hours, First dose on 06/04/24 at 2145, premix bag, Suspected Indication (Select all that apply): Pneumonia, Type of Therapy: Empiric, Indications: Pneumonia Start: 08-14-2022 End: 08-19-2022 take 500 mg by mouth every twenty-four hours Levofloxacin Discontinued 500 MG PO Q24H 5 5 August 14, 2022 12:00am August 19, 2022 12:04am Start: 06-09-2022 End: 06-16-2022 take 750 mg by mouth every twenty-four hours Levofloxacin Discontinued 750 MG PO Q24H 7 7 June 09, 2022 1:00am June 16, 2022 1:04am linezolid 600 mg oral tablet (1 source) Oxazolidinone Antibacterial Start: 05-24-2024 End: 06-04-2024 take 1 tablet by mouth every twelve hours linezolid (Zyvox) 600 mg tablet Take 1 tablet (600 mg) by mouth every 12 hours. 05/24/2024 06/04/2024 Discontinued (Med List Cleanup) melatonin 3 mg oral tablet (1 source) Start: 02-15-2019 End: 03-02-2024 take 2 tablets by mouth every twenty-four hours as needed melatonin 3 mg tablet Take 2 tablets by mouth at bedtime as needed (Insomnia). 30 Each 1 02/15/2019 03/02/2024 Discontinued (Course of therapy completed) meropenem 1000 mg injection (1 source) Penem Antibacterial Start: 06-05-2024 End: 06-05-2024 Starting on 06/05/24 at 0537, For 1 dose, Created by cabinet override meropenem (Merrem) 1 g in sodium chloride 0.9% 100 mL IV (1 source) Start: 06-04-2024 End: 06-05-2024 take 1 g intravenously every twelve hours 1 g, intravenous, at 240 mL/hr, Administer over 0.5 Hours, Every 12 hours, First dose on 06/04/24 at 1840, Dosing of this medication varies based on severity of illness. Does this patient have sepsis or concern for sepsis (probable or documented infection plus systemic manifestations of infection)? Yes, Suspected Indication (Select all that apply): Pneumonia, Type of Therapy: Empiric, Indications: Pneumonia oxyCODONE hydrochloride 5 mg oral tablet (20 sources) Opioid Agonist Start: 08-13-2018 End: 08-17-2018 take 5-10 mg by mouth every four hours as needed Oxycodone Discontinued 5 - 10 MG PO EVERY 4 HOURS NEEDED 30 August 13, 2018 12:00am August 17, 2018 12:11am potassium, sodium phosphates (Phos-NaK) 280-160-250 mg packet (1 source) End: 06-04-2024 take 1 dose by mouth twice daily potassium, sodium phosphates (Phos-NaK) 280-160-250 mg packet Take 1 packet by mouth 2 times a day. 06/04/2024 Discontinued (Med List Cleanup) ProAir Digihaler AEPB (18 sources) ProAir Digihaler AEPB Quantity: 0 Refills: 0 Ordered: 10-Jan-2020 DO Active 1000 ml sodium chloride 9 mg/ml injection (1 source) Start: 06-05-2024 End: 06-05-2024 Starting on 06/05/24 at 0537, For 1 dose, Created by cabinet override theophylline 400 mg extended release oral capsule (20 sources) Methylxanthine Start: 12-01-2018 End: 01-05-2019 take 400 mg by mouth once daily Theophylline Discontinued 400 MG PO DAILY December 01, 2018 12:00am January 05, 2019 11:41am Start: 06-01-2013 End: 10-08-2018 take 400 mg by mouth once daily Theophylline Discontinued 400 MG PO DAILY June 01, 2013 1:00am October 08, 2018 11:55am 10 actuat tiotropium 0.0025 mg/actuat inhalation spray (20 sources) Anticholinergic Start: 06-05-2024 End: 06-06-2024 2 puff, inhalation, Daily RT, First dose on 06/05/24 at 0700, Instruct to hold breath for a few seconds after each inhalation. Before first use, prime inhaler by actuating until aerosal cloud is seen, then actuating 3 more times. Label inhaler with 3 month expiration date after inserting canister. Start: 08-23-2022 End: 03-11-2023 take 2.5 ug by inhalation once daily Tiotropium Ayr (Spiriva Respimat) 2.5 mcg/actuation mist Active 2 INH INHALATION DAILY March 11, 2023 11:35am Start: 07-24-2022 End: 06-06-2024 Spiriva Respimat 2.5 mcg/act uation inhaler 07/24/2022 06/06/2024 Discontinued (Entered in Error) Start: 01-05-2020 End: 06-03-2022 take 1 puff(s) by inhalation once daily Tiotropium Ayr (Spiriva Respimat) 2.5 mcg/actuation mist Discontinued 2 PUFF INHALATION daily December 13, 2020 1:01pm May 15, 2021 1:54pm administer at approximately the same time(s) each day take 1 capsule by in halation once daily tiotropium (Spiriva) [address] 1 capsule into inhaler and inhale daily. Active take 1 capsule by in halation once daily tiotropium (Spiriva) [address] 1 capsule into inhaler and inhale daily. Active take 2 puff(s) by in halation once daily tiotropium bromide (SPIRIVA RESPIMAT) 2.5 mcg/actuation inhaler Inhale 2 Puffs as instructed once daily. Active Spiriva HandiHal er 18 MCG Inhalation Capsule Quantity: 0 Refills: 0 Ordered: 10-Jan-2020 DO Active Spiriva HandiHal er 18 MCG Inhalation Capsule Refills: 0 Active traZODone hydrochloride 150 mg oral tablet (20 sources) Serotonin Reuptake Inhibitor Start: 09-30-2018 End: 11-17-2018 take 150 mg by mouth once daily Trazodone Discontinued 150 MG PO DAILY September 30, 2018 12:00am November 17, 2018 8:53am Start: 06-01-2013 End: 07-20-2018 take 150 mg by mouth every eight hours as needed Trazodone Discontinued 150 MG PO EVERY 8 HOURS NEEDED June 01, 2013 1:00am July 20, 2018 8:50am 1 ml triamcinolone acetonide 40 mg/ml injection (15 sources) Corticosteroid Start: 12-01-2024 End: 12-01-2024 triamcinolone acetonide (Kenalog-40) injection 40 mg Start: 12-01-2024 End: 12-01-2024 40 mg, intra-articular, Once , On [place] 12/01/24 at 1145, For 1 dose Start: 08-23-2022 Triamcinolone Acetonide Active 1 APPLIC TOPICAL TWICE A DAY August 23, 2022 12:00am 200 ml vancomycin 5 mg/ml injection (1 source) Glycopeptide Antibacterial Start: 06-04-2024 End: 06-04-2024 1,000 mg, intravenous, at 200 mL/hr, Administer over 60 Minutes, Once, On 06/04/24 at 1840, For 1 dose, premix bag, Dosing of this medication varies based on severity of illness. Does this patient have sepsis or concern for sepsis (probable or documented infection plus systemic manifestations of infection)? Yes, Suspected Indication (Select all that apply): Pneumonia, Type of Therapy: Empiric, Indications: Pneumonia zolpidem tartrate 12.5 mg extended release oral tablet (20 sources) gamma-Aminobutyric Acid-ergic Agonist Start: 11-17-2018 End: 03-21-2019 take 12.5 mg by mouth at bedtime Zolpidem Discontinued 12.5 MG PO AT BEDTIME November 17, 2018 12:00am March 21, 2019 10:25am Problems Active Problems Problem Classification Problem Date Documented Da te Episodic/Chronic Abdominal hernia (20 sources) Incisional hernia; Translations: [Incisional hernia without obstruction or gangrene] 06-26-2020 Episodic Anxiety disorders (20 sources) Anxiety; Translations: [Anxiety disorder, unspecified] Onset: 4 10-06-2018 Chronic Asthma (20 sources) Asthma; Translations: [Unspecified asthma, uncomplicated] Onset: 5 01-05-2019 Chronic Cardiac dysrhythmias (1 source) Unspecified atrial fibrillation; Translations: [Unspecified atrial fibrillation] Onset: 5 Chronic Chronic obstructive pulmonary disease and bronchiectasis (20 sources) Chronic obstructive lung disease; Translations: [Chronic obstructive pulmonary disease, unspecified] Onset: 8 Chronic Congestive heart failure; nonhypertensive (7 sources) Diastolic heart failure; Translations: [Unspecified diastolic (congestive) heart failure] Onset: 8 02-29-2024 Chronic Coronary atherosclerosis and other heart disease (7 sources) Coronary arteriosclerosis; Translations: [Atherosclerotic heart disease of [place] coronary artery without angina pectoris] Onset: 5 06-05-2024 Chronic Deficiency and other anemia (4 sources) Chronic anemia; Translations: [Anemia, unspecified] 05-04-2023 Episodic Deficiency and other anemia (3 sources) Anemia, unspecified; Translations: [Anemia, unspecified] 05-06-2023 Episodic Delirium, dementia, and amnestic and other cognitive disorders (12 sources) Dementia; Translations: [Unspecified dementia without behavioral disturbance] Onset: 5 06-05-2024 Chronic Diseases of white blood cells (18 sources) Leukocytosis; Translations: [Elevated white blood cell count, unspecified] Onset: 3 05-03-2023 Chronic Diverticulosis and diverticulitis (20 sources) Diverticulitis; Translations: [Diverticulitis of intestine, part unspecified, without perforation or abscess without bleeding] Onset: 5 12-20-2018 Chronic Esophageal disorders (20 sources) Gastroesophageal reflux disease; Translations: [Gastro-esophageal reflux disease without esophagitis] Onset: 4 10-06-2018 Chronic Essential hypertension (20 sources) Benign hypertension; Translations: [Benign essential hypertension] Onset: 4 10-04-2018 Chronic Gastrointestinal hemorrhage (1 source) Gastrointestinal hemorrhage, unspecified; Translations: [Gastrointestinal hemorrhage, unspecified] Onset: 5 Episodic Genitourinary symptoms and ill-defined conditions (20 sources) Urge incontinence of urine; Translations: [Urge incontinence] Onset: 4 06-26-2020 Chronic Infective arthritis and osteomyelitis (except that caused by tuberculosis or sexually transmitted disease) (12 sources) Osteomyelitis of ankle; Translations: [Osteomyelitis, unspecified] Onset: 7 Resolved: 8 11-11-2017 Chronic Menopausal disorders (8 sources) Premature menopause; Translations: [Asymptomatic premature menopause] Onset: 0 05-25-2019 Chronic Mood disorders (20 sources) Depressive disorder; Translations: [Depression] Onset: 9 10-06-2018 Chronic Nutritional deficiencies (2 sources) Undernutrition; Translations: [Unspecified protein-calorie malnutrition] Onset: 4 03-02-2024 Chronic Open wounds of extremities (8 sources) 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, unspecified lower leg, initial encounter; Translations: [Amputated below knee] Onset: 8 02-29-2024 Chronic Osteoarthritis (20 sources) Osteoarthritis; Translations: [Unspecified osteoarthritis, unspecified site] Onset: 4 12-20-2018 Chronic Osteoporosis (20 sources) Osteoporosis; Translations: [Age-related osteoporosis without current pathological fracture] Onset: 0 12-20-2018 Chronic Other aftercare (1 source) Polypharmacy ; Translations: [Other terminal make up operator (current) drug therapy] 03-02-2024 Episodic Other aftercare (1 source) Taking high risk medication; Translations: [Other chcf (current) drug therapy] 03-01-2024 Episodic Other aftercare (2 sources) Other chcf (current) drug therapy; Translations: [Polypharmacy] Onset: 4 Episodic Other and ill-defined heart disease (20 sources) Heart disease; Translations: [Heart disease, unspecified] Onset: 4 10-06-2018 Chronic Other bone disease and musculoskeletal deformities (20 sources) History of amputation of right foot; Translations: [Acquired absence of right foot] Onset: 5 10-06-2018 Chronic Other bone disease and musculoskeletal deformities (1 source) Acquired absence of right leg below knee; Translations: [History of right below knee amputation (HCC)] Onset: 8 Chronic Other bone disease and musculoskeletal deformities (4 sources) History of amputation of right leg through tibia and fibula; Translations: [Acquired absence of right leg below knee] Onset: 8 11-11-2017 Chronic Other connective tissue disease (1 source) Myalgia, unspecified site; Translations: [Myalgias] Onset: 3 Episodic Other lower respiratory disease (20 sources) H/O: bronchitis; Translations: [Personal history of other diseases of the respiratory system] 12-20-2018 Episodic Other lower respiratory disease (20 sources) H/O: pneumonia; Translations: [Personal history of pneumonia (recurrent)] 12-20-2018 Episodic Other lower respiratory disease (13 sources) Hypoxemia; Translations: [Hypoxemia] 08-23-2022 Episodic Other lower respiratory disease (1 source) Productive cough ; Translations: [Productive cough] Onset: 3 Episodic Other lower respiratory disease (1 source) Other disorders of lung; Translations: [Other disorders of lung] Onset: 3 Episodic Other lower respiratory disease (5 sources) Hypoxia; Translations: [Hypoxemia] 05-03-2023 Episodic Other lower respiratory disease (5 sources) Multiple nodules of lung; Translations: [Other nonspecific abnormal finding of lung field] Onset: 5 12-02-2024 Episodic Other lower respiratory disease (3 sources) Other nonspecific abnormal finding of lung field; Translations: [Other nonspecific abnormal finding of lung field] Onset: 5 Episodic Other lower respiratory disease (1 source) Dyspnea, unspecified; Translations: [Dyspnea, unspecified] Onset: 5 Episodic Other nervous system disorders (20 sources) Chronic idiopathic pain syndrome; Translations: [Chronic pain syndrome] Onset: 3 03-03-2023 Chronic Other nervous system disorders (8 sources) Chronic pain syndrome; Translations: [Chronic pain syndrome] Onset: 3 Chronic Other nervous system disorders (3 sources) Other chronic pain; Translations: [Other chronic pain] Onset: 3 Chronic Other nervous system disorders (3 sources) Chronic pain syndrome; Translations: [Chronic pain syndrome] Onset: 3 Chronic Other nervous system disorders (7 sources) Phantom limb syndrome with pain; Translations: [Phantom limb syndrome with pain] Onset: 8 02-29-2024 Chronic Other nervous system disorders (3 sources) Chronic pain; Translations: [Other chronic pain] Onset: 8 02-29-2024 Chronic Other non-traumatic joint disorders (2 sources) Joint ankylosis of the shoulder region; Translations: [Ankylosis, right shoulder] 12-01-2024 Chronic Other non-traumatic joint disorders (2 sources) Ankylosis, right shoulder; Translations: [Ankylosis, right shoulder] Onset: 5 Chronic Other non-traumatic joint disorders (2 sources) Chronic pain of right upper limb; Translations: [Pain in right shoulder] 11-22-2024 Episodic Other nutritional; endocrine; and metabolic disorders (8 sources) Obese class I; Translations: [Obesity, Class I, BMI 30-34.9] Onset: 8 10-12-2017 Chronic Other upper respiratory infections (2 sources) Chronic sinusitis, unspecified; Translations: [Other chronic sinusitis] Onset: 5 Chronic Residual codes; unclassified (20 sources) Obstructive sleep apnea syndrome; Translations: [Obstructive sleep apnea (adult) (pediatric)] Onset: 8 02-13-2021 Chronic Residual codes; unclassified (20 sources) Sleep apnea; Translations: [Sleep apnea, unspecified] 12-20-2018 Chronic Residual codes; unclassified (11 sources) Obstructive sleep apnea (adult) (pediatric); Translations: [Obstructive sleep apnea (adult)(pediatric)] Chronic Residual codes; unclassified (7 sources) Sleep apnea, unspecified; Translations: [Unspecified sleep apnea] 09-24-2022 Chronic Residual codes; unclassified (8 sources) Dependence on wheelchair; Translations: [Dependence on wheelchair] Onset: 0 05-25-2019 Chronic Residual codes; unclassified (20 sources) History of hernia repair; Translations: [Other specified postprocedural states] Onset: 9 06-26-2020 Episodic Residual codes; unclassified (2 sources) Tobacco user; Translations: [Tobacco use] 11-22-2024 Episodic Respiratory failure; insufficiency; arrest (adult) (20 sources) Chronic hypoxemic respiratory failure; Translations: [Chronic respiratory failure with hypoxia] Onset: 8 01-05-2019 Chronic Respiratory failure; insufficiency; arrest (adult) (20 sources) Acute respiratory failure; Translations: [Acute respiratory failure with hypoxia] 08-23-2022 Episodic Rheumatoid arthritis and related disease (7 sources) Inflammatory polyarthropathy; Translations: [Inflammatory polyarthropathy] Onset: 3 02-29-2024 Chronic Spondylosis; intervertebral disc disorders; other back problems (20 sources) Lumbar post-laminectomy syndrome; Translations: [Postlaminectomy syndrome, lumbar region] Onset: 1 Chronic Substance-related disorders (20 sources) Cigarette smoker ; Translations: [Nicotine dependence, cigarettes, uncomplicated] Onset: 8 Chronic Thyroid disorders (20 sources) Hypothyroidism; Translations: [Hypothyroidism, unspecified] Onset: 3 10-04-2018 Chronic Thyroid disorders (20 sources) Disorder of thyroid gland; Translations: [Disorder of thyroid, unspecified] 12-20-2018 Episodic Transient cerebral ischemia (20 sources) Transient cerebral ischemia; Translations: [Unspecified transient cerebral ischemia] Onset: 4 12-20-2018 Chronic Unclassified (20 sources) spinal stimulator 10-04-2018 Unclassified (4 sources) Chronic pain of right upper limb 11-22-2024 Past or Other Problems Problem Classification Problem Date Documented Da te Episodic/Chronic Abdominal pain (20 sources) Abdominal pain; Translations: [Unspecified abdominal pain] Onset: 06-28-2024 11-04-2018 Episodic Acute and unspecified renal failure (20 sources) Injury of kidney; Translations: [Acute kidney failure, unspecified] Onset: 04-24-2023 08-23-2022 Episodic Acute posthemorrhagic anemia (4 sources) Anemia following acute postoperative blood loss; Translations: [Acute posthemorrhagic anemia] Onset: 10-19-2017 06-28-2024 Episodic Allergic reactions (5 sources) Allergy status to penicillin; Translations: [Allergy status to sulfonamides status] Onset: 01-27-2022 02-29-2024 Episodic Aspiration pneumonitis; food/vomitus (9 sources) Aspiration pneumonia; Translations: [Pneumonitis due to inhalation of food and vomit] Onset: 06-04-2024 06-04-2024 Episodic Biliary tract disease (20 sources) Biliary colic; Translations: [Calculus of bile duct without cholangitis or cholecystitis without obstruction] Onset: 02-29-2024 10-06-2018 Episodic Complications of surgical procedures or medical care (8 sources) Dehiscence of surgical wound; Translations: [Disruption of external operation (surgical) wound, not elsewhere classified, initial encounter] Onset: 07-23-2010 11-20-2016 Episodic Deficiency and other anemia (7 sources) Anemia; Translations: [Anemia, unspecified] Onset: 08-26-2022 11-26-2022 Episodic Deficiency and other anemia (7 sources) Normocytic anemia; Translations: [Anemia, unspecified] Onset: 06-05-2024 06-05-2024 Episodic Deficiency and other anemia (1 source) Iron deficiency anemia, unspecified; Translations: [Iron deficiency anemia, unspecified] Onset: 05-14-2024 Episodic E Codes: Fall (10 sources) Fall; Translations: [Unspecified fall, initial encounter] Onset: 06-04-2024 06-05-2024 Episodic Fluid and electrolyte disorders (20 sources) Hyponatremia; Translations: [Hypo-osmolality and hyponatremia] Onset: 10-02-2022 09-14-2022 Episodic Fracture of lower limb (8 sources) Closed trimalleolar fracture; Translations: [Displaced trimalleolar fracture of unspecified lower leg, initial encounter for closed fracture] Onset: 10-19-2016 Resolved: 11-11-2017 11-11-2017 Episodic Genitourinary symptoms and ill-defined conditions (20 sources) Increased frequency of urination; Translations: [Frequency of micturition] Onset: 06-28-2024 06-26-2020 Episodic Influenza (13 sources) Influenza due to Influenza A virus; Translations: [Influenza due to other identified influenza virus with other respiratory manifestations] Onset: 06-12-2023 05-03-2023 Episodic Malaise and fatigue (5 sources) Weakness; Translations: [Asthenia] Onset: 05-12-2024 06-28-2024 Episodic Mood disorders (9 sources) Mood disorders Onset: 03-03-2023 Resolved: 10-24-2024 03-03-2023 Mycoses (20 sources) Candidiasis of mouth; Translations: [Candidal stomatitis] Onset: 06-12-2023 03-11-2023 Episodic Nausea and vomiting (20 sources) Nausea and vomiting; Translations: [Nausea with vomiting, unspecified] Onset: 06-12-2023 10-06-2018 Episodic Neoplasms of unspecified nature or uncertain behavior (13 sources) Thrombocytosis; Translations: [Thrombocythemia] Onset: 06-12-2023 05-03-2023 Episodic Other bone disease and musculoskeletal deformities (8 sources) Osteopenia; Translations: [Other specified disorders of bone density and structure, multiple sites] Onset: 05-25-2019 05-25-2019 Episodic Other circulatory disease (8 sources) History of cerebrovascular accident; Translations: [Personal history of transient ischemic attack (TIA), and cerebral infarction without residual deficits] Onset: 11-26-2022 11-26-2022 Episodic Other circulatory disease (7 sources) Low blood pressure; Translations: [Hypotension, unspecified] Onset: 06-05-2024 06-05-2024 Episodic Other connective tissue disease (8 sources) Secondary fibrositis; Translations: [Fibromyalgia] Onset: 02-29-2024 02-29-2024 Episodic Other connective tissue disease (20 sources) Fibromyalgia; Translations: [Myalgia and myositis, unspecified] Onset: 02-04-2023 02-04-2023 Episodic Other connective tissue disease (6 sources) Fibromyalgia; Translations: [Fibromyalgia] Onset: 12-09-2022 Episodic Other connective tissue disease (8 sources) Decrease in height; Translations: [Loss of height] Onset: 05-25-2019 05-25-2019 Episodic Other connective tissue disease (8 sources) Recurrent falls ; Translations: [Repeated falls] Onset: 05-25-2019 05-25-2019 Episodic Other gastrointestinal disorders (20 sources) Constipation; Translations: [Constipation, unspecified] Onset: 02-29-2024 11-04-2018 Episodic Other injuries and conditions due to external causes (7 sources) Closed injury of head; Translations: [Unspecified injury of head, initial encounter] Onset: 06-04-2024 06-04-2024 Episodic Other injuries and conditions due to external causes (2 sources) Unspecified injury of head, initial encounter; Translations: [Unspecified injury of head, initial encounter] Onset: 06-04-2024 Episodic Other liver diseases (4 sources) Elevated liver enzymes level; Translations: [Elevation of levels of liver transaminase levels] Onset: 09-25-2023 06-28-2024 Episodic Other lower respiratory disease (17 sources) Hypoxemia; Translations: [Hypoxemia] Onset: 04-24-2023 08-23-2022 Episodic Other lower respiratory disease (2 sources) Shortness of breath; Translations: [Shortness of breath] Onset: 11-26-2022 Episodic Other lower respiratory disease (1 source) Solitary pulmonary nodule; Translations: [Solitary pulmonary nodule] Onset: 11-14-2024 Episodic Other nervous system disorders (20 sources) Toxic metabolic encephalopathy; Translations: [Toxic metabolic encephalopathy] Onset: 10-02-2022 09-14-2022 Episodic Other nervous system disorders (2 sources) Chronic idiopathic pain syndrome; Translations: [Chronic idiopathic pain syndrome] Other non-traumatic joint disorders (3 sources) Pain in right shoulder; Translations: [Pain in right shoulder] Onset: 05-05-2024 Episodic Other screening for suspected conditions (not mental disorders or infectious disease) (13 sources) Serum creatinine raised; Translations: [Other specified abnormal findings of blood chemistry] Onset: 06-12-2023 05-03-2023 Episodic Other skin disorders (1 source) Localized swelling, mass and lump, left upper limb; Translations: [Localized swelling, mass and lump, left upper limb] Onset: 07-11-2024 Episodic Pathological fracture (5 sources) Osteoporosis; Translations: [Age-related osteoporosis with current pathological fracture, unspecified site, sequela] Onset: 05-25-2019 03-03-2023 Episodic Pneumonia (except that caused by tuberculosis or sexually transmitted disease) (20 sources) Community acquired pneumonia; Translations: [Pneumonia, unspecified organism] Onset: 11-26-2022 10-04-2018 Episodic Residual codes; unclassified (20 sources) Past history of procedure; Translations: [Other specified postprocedural states] Onset: 04-27-2018 07-19-2019 Episodic Residual codes; unclassified (20 sources) H/O Spinal surgery; Translations: [Other specified postprocedural states] Onset: 06-28-2024 10-06-2018 Episodic Residual codes; unclassified (15 sources) Altered mental status; Translations: [Altered mental status, unspecified] Onset: 02-14-2019 Resolved: 02-15-2019 03-29-2023 Episodic Residual codes; unclassified (7 sources) Altered mental status, unspecified; Translations: [Altered mental status] Onset: 06-06-2024 03-29-2023 Episodic Residual codes; unclassified (8 sources) Postoperative state; Translations: [Other specified postprocedural states] Onset: 11-20-2016 11-20-2016 Episodic Residual codes; unclassified (4 sources) Postmenopausal state; Translations: [Asymptomatic menopausal state] Onset: 05-25-2019 05-25-2019 Episodic Residual codes; unclassified (4 sources) History of drug therapy; Translations: [Personal history of other drug therapy] Onset: 05-25-2019 05-25-2019 Episodic Residual codes; unclassified (3 sources) Not for resuscitation; Translations: [Do not resuscitate] Onset: 10-16-2017 02-29-2024 Episodic Residual codes; unclassified (7 sources) Device in situ; Translations: [Presence of neurostimulator] Onset: 01-03-2022 02-29-2024 Episodic Residual codes; unclassified (2 sources) Disorientation, unspecified; Translations: [Confusion] Onset: 05-12-2024 Episodic Residual codes; unclassified (2 sources) Tobacco use; Translations: [Tobacco use] Onset: 11-22-2024 Episodic Septicemia (except in labor) (14 sources) Sepsis, unspecified organism; Translations: [Sepsis] Onset: 11-26-2022 05-03-2023 Episodic Skin and subcutaneous tissue infections (8 sources) Cellulitis of trunk; Translations: [Cellulitis of trunk, unspecified] Onset: 03-15-2009 03-15-2009 Episodic Spondylosis; intervertebral disc disorders; other back problems (20 sources) Spinal stenosis; Translations: [Spinal stenosis, site unspecified] Onset: 07-23-2010 10-04-2018 Episodic Sprains and strains (9 sources) Strain of neck muscle; Translations: [Strain of muscle, fascia and tendon at neck level, initial encounter] Onset: 06-04-2024 06-04-2024 Episodic Unclassified (20 sources) Below knee amputation status, right; Translations: [Below knee amputation status, right] Unclassified (9 sources) Onset: 03-03-2023 Resolved: 12-01-2024 03-03-2023 Urinary tract infections (3 sources) Urinary tract infection, site not specified; Translations: [Urinary tract infection without hematuria, site unspecified] Onset: 11-26-2022 Episodic Viral infection (1 source) Other specified viral diseases; Translations: [Other specified viral diseases] Onset: 05-14-2024 Episodic NEGATED: Highlighted row has been ruled out!Residual codes; unclassified (7 sources) Disease Episodic Results Test Name Value Interpretation Reference Range Facility Basic Metabolic Profile (BMP )on 03-09-2025 Calcium [Mass/Vol] 6.0 mg/dL Invalid Interpretation Code 7.6-11.0 [facility] Comment on above: Order Comment: REDRA W Result Comment: Crit ical Result(s) Called at: 03-09-25 06:06 TO LINDAFORRESD by: SUSSY ALFORD??Results read back by same.Critical Result(s) Called at:03-09-25 06:06 TO LINDAFORRESD by: SUSSY ALFORD??Results read back by same. AMENDED REPORT 03/09/25618 CA previously reported as: 5.9 *L mg/dLCritical Result(s) Called at: 03-09-25 06:06 TO LINDAFORRESD by: SUSSY ALFORD??Results read back by same. Performed By: #### L 100.0100, L500.2500 ####[facility] [address] [place], [place], [id number] BUN Normal 4-19 [facility] Comment on above: Result Comment: This specimen has been REJECTED due to Laboratory criteria:Contaminated/Leaked.ANTHONY ELLIS has been notified of need of recollection.03/09/25 0527 Sussy Alford Performed By: #### L 100.0100, L500.2500 ####[facility] [address] [place], [address] BUN/CRE Normal 10-20 [facility] Comment on above: Result Comment: This specimen has been REJECTED due to Laboratory criteria:Contaminated/Leaked.ANTHONY ELLIS has been notified of need of recollection.03/09/25526 Sussy Alford Performed By: #### L 100.0100, L500.2500 ####[facility] [address] [place], [address] Calcium Normal 7.6-11.0 [facility] Comment on above: Result Comment: This specimen has been REJECTED due to Laboratory criteria:Contaminated/Leaked.ANTHONY ELLIS has been notified of need of recollection.03/09/25526 Sussy Alford Performed By: #### L 100.0100, L500.2500 ####[facility] [address] [facility] [address] CL Normal 98-108 [facility] Comment on above: Result Comment: This specimen has been REJECTED due to Laboratory criteria:Contaminated/Leaked.ANTHONY ELLIS has been notified of need of recollection.03/09/25526 Sussy Alford Performed By: #### L 100.0100, L500.2500 ####[facility] [address] [facility] [address] CO2 Normal 21.0-32.0 [facility] Comment on above: Result Comment: This specimen has been REJECTED due to Laboratory criteria:Contaminated/Leaked.ANTHONY ELLIS has been notified of need of recollection.03/09/25526 Sussy Alford Performed By: #### L 100.0100, L500.2500 ####[facility] [address] [place], [address] CREAT,SERUM Normal 0.70-1.20 [facility] Comment on above: Result Comment: This specimen has been REJECTED due to Laboratory criteria:Contaminated/Leaked.ANTHONY ELLIS has been notified of need of recollection.03/09/25526 Sussy Alford Performed By: #### L 100.0100, L500.2500 ####[facility] [address] [place], [address] eGFR Normal >60 [facility] Comment on above: Result Comment: This specimen has been REJECTED due to Laboratory criteria:Contaminated/Leaked.ANTHONY ELLIS has been notified of need of recollection.03/09/25526 Sussy Alford Performed By: #### L 100.0100, L500.2500 ####[facility] [address] [facility] [address] GAP Normal 5-15 [facility] Comment on above: Result Comment: This specimen has been REJECTED due to Laboratory criteria:Contaminated/Leaked.ANTHONY ELLIS has been notified of need of recollection.03/09/25526 Sussy Alford Performed By: #### L 100.0100, L500.2500 ####[facility] [address] [facility] [address] GLU Normal 70-99 [facility] Comment on above: Result Comment: This specimen has been REJECTED due to Laboratory criteria:Contaminated/Leaked.ANTHONY ELLIS has been notified of need of recollection.03/09/25526 Sussy Alford Performed By: #### L 100.0100, L500.2500 ####[facility] [address] [facility] [address] Potassium Normal 3.3-5.1 [facility] Comment on above: Result Comment: This specimen has been REJECTED due to Laboratory criteria:Contaminated/Leaked.ANTHONY ELLIS has been notified of need of recollection.03/09/25526 Sussy Alford Performed By: #### L 100.0100, L500.2500 ####[facility] [address] [place], [address] Basic Metabolic Profile (BMP) Normal 133-145 [facility] Comment on above: Result Comment: This specimen has been REJECTED due to Laboratory criteria:Contaminated/Leaked.ANTHONY ELILS has been notified of need of recollection.03/09/2527 Sussymarko Alford Performed By: #### L 100.0100, L500.2500 ####[facility] [address] [place], [address] CBC W/Diff, Automatedon 02-25-2024 Absolute Lymph 1.59 X10 3/uL Normal 0.83-4.51 [facility] Comment on above: Performed By: #### L 100.0100, L500.2500 ####[facility] [address] [place], [address] Absolute Neut 11.0 X10 3/uL High 2.0-7.7 [facility] Comment on above: Performed By: #### L 100.0100, L500.2500 ####[facility] [address] [place], [address] Basophils/100 WBC (Bld) 0.6 % Normal 0-1 [facility] Comment on above: Performed By: #### L 100.0100, L500.2500 ####[facility] [address] [place], [address] Eosinophils/100 WBC (Bld) 1.3 % Normal 0-5 [facility] Comment on above: Performed By: #### L 100.0100, L500.2500 ####[facility] [address] [place], [address] Erythrocyte distribution width (RBC) [Ratio] 16.1 % High 11.6-14.6 [facility] Comment on above: Performed By: #### L 100.0100, L500.2500 ####[facility] [address] [place], [address] Hematocrit (Bld) [Volume fraction] 29.4 % Low 37-47 [facility] Comment on above: Performed By: #### L 100.0100, L500.2500 ####[facility] [address] [place], [address] Hemoglobin (Bld) [Mass/Vol] 9.8 g/dL Low 12.0-15.0 [facility] Comment on above: Performed By: #### L 100.0100, L500.2500 ####[facility] [address] [place], [address] IG% 1.600 High 0.0-0.9 [facility] Comment on above: Result Comment: IG% - Immature Granulocytes (promyelocytes, myelocytes andmetamyelocytes) > 1% indicates that a LEFT SHIFT is Present. Performed By: #### L 100.0100, L500.2500 ####[facility] [address] [place], [address] Lymphocytes/100 WBC (Bld) 11.0 % Low 19-41 [facility] Comment on above: Performed By: #### L 100.0100, L500.2500 ####[facility] [address] [place], [address] MCH (RBC) [Entitic mass] 28.6 pg Normal 27.0-32.0 [facility] Comment on above: Performed By: #### L 100.0100, L500.2500 ####[facility] [address] [place], [address] MCHC (RBC) [Mass/Vol] 33.3 g/dL Normal 32-36 [facility] Comment on above: Performed By: #### L 100.0100, L500.2500 ####[facility] [address] [place], [address] MCV (RBC) [Entitic vol] 85.7 fL Normal 81-99 [facility] Comment on above: Performed By: #### L 100.0100, L500.2500 ####[facility] [address] [place], [address] Monocytes/100 WBC (Bld) 9.1 % Normal 0-10 [facility] Comment on above: Performed By: #### L 100.0100, L500.2500 ####[facility] [address] [place], [address] Neutrophils/100 WBC (Bld) 76.4 % High 47-70 [facility] Comment on above: Performed By: #### L 100.0100, L500.2500 ####[facility] [address] [place], [address] Nucleated RBC (Bld) [#/Vol] 0.1 10*3/uL Normal 0-5 [facility] Comment on above: Performed By: #### L 100.0100, L500.2500 ####[facility] [address] [place], [address] Platelet mean volume (Bld) [Entitic vol] 8.6 fL Normal 6.2-12.0 [facility] Comment on above: Performed By: #### L 100.0100, L500.2500 ####[facility] [address] [place], [address] Platelets (Bld) [#/Vol] 293 10*3/uL Normal 150-450 [facility] Comment on above: Performed By: #### L 100.0100, L500.2500 ####[facility] [address] [place], [address] RBC (Bld) [#/Vol] 3.43 10*6/uL Low 4.2-5.4 [facility] Comment on above: Performed By: #### L 100.0100, L500.2500 ####[facility] [address] [place], [address] RDW SD 50.4 fl High 35.1-43.9 [facility] Comment on above: Performed By: #### L 100.0100, L500.2500 ####[facility] [address] [place], [address] WBC (Bld) [#/Vol] 14.4 10*3/uL High 4.4-11.0 [facility] Comment on above: Performed By: #### L 100.0100, L500.2500 ####[facility] [address] [place], [address] DIFF INDICATED? AUTO DIFF OK Normal [facility] Comment on above: Result Comment: This specimen has been REJECTED due to Laboratory criteria:Contaminated/Leaked.ANTHONY ELLIS has been notified of need of recollection.03/09/25527 Sussy Alford Performed By: #### L 100.0100, L500.2500 ####[facility] [address] [place], [address] Absolute Lymph 1.64 X10 3/uL Normal 0.83-4.51 [facility] Comment on above: Result Comment: This specimen has been REJECTED due to Laboratory criteria:Contaminated/Leaked.ANTHONY ELLIS has been notified of need of recollection.03/09/25527 Sussy Alford Performed By: #### L 100.0100, L500.2500 ####[facility] [address] [place], [address] Absolute Neut 10.4 X10 3/uL High 2.0-7.7 [facility] Comment on above: Result Comment: This specimen has been REJECTED due to Laboratory criteria:Contaminated/Leaked.ANTHONY ELLIS has been notified of need of recollection.03/09/25527 Sussy Alford Performed By: #### L 100.0100, L500.2500 ####[facility] [address] [place], [address] BASO# 0.06 X10 3/uL Normal [facility] Comment on above: Result Comment: This specimen has been REJECTED due to Laboratory criteria:Contaminated/Leaked.ANTHONY ELLIS has been notified of need of recollection.03/09/25527 Sussy Alford Performed By: #### L 100.0100, L500.2500 ####[facility] [address] [place], [address] Basophils/100 WBC (Bld) 0.4 % Normal 0-1 [facility] Comment on above: Result Comment: This specimen has been REJECTED due to Laboratory criteria:Contaminated/Leaked.ANTHONY ELLIS has been notified of need of recollection.03/09/25527 Sussy Alford Performed By: #### L 100.0100, L500.2500 ####[facility] [address] [place], [address] EOS# 0.17 X10 3/uL Normal [facility] Comment on above: Result Comment: This specimen has been REJECTED due to Laboratory criteria:Contaminated/Leaked.ANTHONY ELLIS has been notified of need of recollection.03/09/25527 Sussy Alford Performed By: #### L 100.0100, L500.2500 ####[facility] [address] [place], [address] Eosinophils/100 WBC (Bld) 1.2 % Normal 0-5 [facility] Comment on above: Result Comment: This specimen has been REJECTED due to Laboratory criteria:Contaminated/Leaked.ANTHONY ELLIS has been notified of need of recollection.03/09/25527 Sussy Alford Performed By: #### L 100.0100, L500.2500 ####[facility] [address] [place], [address] Erythrocyte distribution width (RBC) [Ratio] 16.1 % High 11.6-14.6 [facility] Comment on above: Result Comment: This specimen has been REJECTED due to Laboratory criteria:Contaminated/Leaked.ANTHONY ELLIS has been notified of need of recollection.03/09/25527 Sussy Alford Performed By: #### L 100.0100, L500.2500 ####[facility] [address] [place], [address] Hematocrit (Bld) [Volume fraction] 27.8 % Low 37-47 [facility] Comment on above: Result Comment: This specimen has been REJECTED due to Laboratory criteria:Contaminated/Leaked.ANTHONY ELLIS has been notified of need of recollection.03/09/25527 Sussy Alford Performed By: #### L 100.0100, L500.2500 ####[facility] [address] [place], [place], [id number]) Hemoglobin (Bld) [Mass/Vol] 9.2 g/dL Low 12.0-15.0 [facility] [facility] Comment on above: Result Comment: This specimen has been REJECTED due to Laboratory criteria:Contaminated/Leaked.ANTHONY ELLIS has been notified of need of recollection.03/09/25527 Sussy Alford Performed By: #### L 100.0100, L500.2500 ####[facility] [address] [place], [address] IG# 0.280 X10 3/uL High 0.0-0.0 [facility] Comment on above: Result Comment: This specimen has been REJECTED due to Laboratory criteria:Contaminated/Leaked.ANTHONY ELLIS has been notified of need of recollection.03/09/25527 Sussy Alford Performed By: #### L 100.0100, L500.2500 ####[facility] [address] [place], [address] IG% 2.000 High 0.0-0.9 [facility] Comment on above: Result Comment: This specimen has been REJECTED due to Laboratory criteria:Contaminated/Leaked.ANTHONY ELLIS has been notified of need of recollection.03/09/25527 Sussy AlfordIG% - Immature Granulocytes (promyelocytes, myelocytes andmetamyelocytes) > 1% indicates that a LEFT SHIFT is Present. Performed By: #### L 100.0100, L500.2500 ####[facility] [address] [place], [address] LYMPH# 1.64 X10 3/ul Normal 0.83-4.51 [facility] Comment on above: Result Comment: This specimen has been REJECTED due to Laboratory criteria:Contaminated/Leaked.ANTHONY ELLIS has been notified of need of recollection.03/09/25527 Sussy Alford Performed By: #### L 100.0100, L500.2500 ####[facility] [address] [place], [address] Lymphocytes/100 WBC (Bld) 12.0 % Low 19-41 [facility] Comment on above: Result Comment: This specimen has been REJECTED due to Laboratory criteria:Contaminated/Leaked.ANTHONY ELLIS has been notified of need of recollection.03/09/25527 Sussy Alford Performed By: #### L 100.0100, L500.2500 ####[facility] [address] [place], [address] MCH (RBC) [Entitic mass] 28.3 pg Normal 27.0-32.0 [facility] Comment on above: Result Comment: This specimen has been REJECTED due to Laboratory criteria:Contaminated/Leaked.ANTHONY ELLIS has been notified of need of recollection.03/09/25527 Sussy Alford Performed By: #### L 100.0100, L500.2500 ####[facility] [address] [place], [address] MCHC (RBC) [Mass/Vol] 33.1 g/dL Normal 32-36 [facility] Comment on above: Result Comment: This specimen has been REJECTED due to Laboratory criteria:Contaminated/Leaked.ANTHONY ELLIS has been notified of need of recollection.03/09/25527 Sussy Alford Performed By: #### L 100.0100, L500.2500 ####[facility] [address] [place], [address] MCV (RBC) [Entitic vol] 85.5 fL Normal 81-99 [facility] Comment on above: Result Comment: This specimen has been REJECTED due to Laboratory criteria:Contaminated/Leaked.ANTHONY ELLIS has been notified of need of recollection.03/09/25527 Sussy Alford Performed By: #### L 100.0100, L500.2500 ####[facility] [address] [place], [address] MONO # 1.19 X10 3/uL Normal [facility] Comment on above: Result Comment: This specimen has been REJECTED due to Laboratory criteria:Contaminated/Leaked.ANTHONY ELLIS has been notified of need of recollection.03/09/25527 Sussy Alford Performed By: #### L 100.0100, L500.2500 ####[facility] [address] [place], [address] Monocytes/100 WBC (Bld) 8.7 % Normal 0-10 [facility] Comment on above: Result Comment: This specimen has been REJECTED due to Laboratory criteria:Contaminated/Leaked.ANTHONY ELLIS has been notified of need of recollection.03/09/25527 Sussy Alford Performed By: #### L 100.0100, L500.2500 ####[facility] [address] [place], [address] Neutrophil # 10.38 X10 3/uL High 2.7-7.7 [facility] Comment on above: Result Comment: This specimen has been REJECTED due to Laboratory criteria:Contaminated/Leaked.ANTHONY ELLIS has been notified of need of recollection.03/09/25527 Sussy Alford Performed By: #### L 100.0100, L500.2500 ####[facility] [address] [place], [address] Neutrophils/100 WBC (Bld) 75.7 % High 47-70 [facility] Comment on above: Result Comment: This specimen has been REJECTED due to Laboratory criteria:Contaminated/Leaked.ANTHONY ELLIS has been notified of need of recollection.03/09/25527 Sussy Alford Performed By: #### L 100.0100, L500.2500 ####[facility] [address] [place], [address] Nucleated RBC (Bld) [#/Vol] 0.1 10*3/uL Normal 0-5 [facility] Comment on above: Result Comment: This specimen has been REJECTED due to Laboratory criteria:Contaminated/Leaked.ANTHONY ELLIS has been notified of need of recollection.03/09/25527 Sussy Alford Performed By: #### L 100.0100, L500.2500 ####[facility] [address] [place], [address] Platelet mean volume (Bld) [Entitic vol] 8.9 fL Normal 6.2-12.0 [facility] Comment on above: Result Comment: This specimen has been REJECTED due to Laboratory criteria:Contaminated/Leaked.ANTHONY ELLIS has been notified of need of recollection.03/09/25527 Sussy Alfodr Performed By: #### L 100.0100, L500.2500 ####[facility] [address] [place], [address] Platelets (Bld) [#/Vol] 301 10*3/uL Normal 150-450 [facility] Comment on above: Result Comment: This specimen has been REJECTED due to Laboratory criteria:Contaminated/Leaked.ANTHONY ELLIS has been notified of need of recollection.03/09/25527 Sussy Alford Performed By: #### L 100.0100, L500.2500 ####[facility] [address] [place], [address] RBC (Bld) [#/Vol] 3.25 10*6/uL Low 4.2-5.4 [facility] Comment on above: Result Comment: This specimen has been REJECTED due to Laboratory criteria:Contaminated/Leaked.ANTHONY ELLIS has been notified of need of recollection.03/09/25527 Sussy Alford Performed By: #### L 100.0100, L500.2500 ####[facility] [address] [place], [address] RDW SD 50.3 fl High 35.1-43.9 [facility] Comment on above: Result Comment: This specimen has been REJECTED due to Laboratory criteria:Contaminated/Leaked.ANTHONY ELLIS has been notified of need of recollection.03/09/2528 Sussy Alford Performed By: #### L 100.0100, L500.2500 ####[facility] [address] [place], [address] WBC (Bld) [#/Vol] 13.7 10*3/uL High 4.4-11.0 [facility] Comment on above: Result Comment: This specimen has been REJECTED due to Laboratory criteria:Contaminated/Leaked.ANTHONY ELLIS has been notified of need of recollection.03/09/2528 Sussy Alford Performed By: #### L 100.0100, L500.2500 ####[facility] [address] [place], [address] EGD Reporton 03-09-2025 EGD Report Normal [facility] MR/OP.PROVATon 03-09-2025 MR/OP.PROVAT Normal [facility] MR/POSTOP.ANEon 03-09-2025 MR/POSTOP.ANE Normal [facility] MR/ENPQFQMH5lk 03-09-2025 MR/POSTOPAN2 Normal [facility] BRCon 03-08-2025 RC Normal [facility] Comment on above: Result Comment: [id number] ON RC TRANSFUSED 03/08/25 [id number] ON RC TRANSFUSED 03/08/25 [id number] AN RC TRANSFUSED 03/08/25 1443 Performed By: #### B RC ####[facility] [address] [place], [address] CBC W/Diff, Automatedon 02-25 Hemoglobin (Bld) [Mass/Vol] 5.8 g/dL Invalid Interpretation Code 12.0-15.0 [facility] Comment on above: Result Comment: CRIT ICAL VALUE CALLED TO Chelsie WALTER03/08/25 0823 Garthlacy Guerrier.RESULTS READ BACK BY . Performed By: #### L 501.2450, L100.0100, L300.4310, L500.4050, L300.3900, M100.7900, BTS ####[facility] [address] [place], [address] Absolute Lymph 3.22 X10 3/uL Normal 0.83-4.51 [facility] Comment on above: Performed By: #### L 501.2450, L100.0100, L300.4310, L500.4050, L300.3900, M100.7900, BTS ####[facility] [address] [place], [address] Absolute Neut 16.9 X10 3/uL High 2.0-7.7 [facility] Comment on above: Performed By: #### L 501.2450, L100.0100, L300.4310, L500.4050, L300.3900, M100.7900, BTS ####[facility] [address] [place], [address] Basophils/100 WBC (Bld) 0.2 % Normal 0-1 [facility] Comment on above: Performed By: #### L 501.2450, L100.0100, L300.4310, L500.4050, L300.3900, M100.7900, BTS ####[facility] [address] [place], [address] Eosinophils/100 WBC (Bld) 0.8 % Normal 0-5 [facility] Comment on above: Performed By: #### L 501.2450, L100.0100, L300.4310, L500.4050, L300.3900, M100.7900, BTS ####[facility] [address] [place], [address] Erythrocyte distribution width (RBC) [Ratio] 16.3 % High 11.6-14.6 [facility] Comment on above: Performed By: #### L 501.2450, L100.0100, L300.4310, L500.4050, L300.3900, M100.7900, BTS ####[facility] [address] [place], [address] Hematocrit (Bld) [Volume fraction] 18.4 % Low 37-47 [facility] Comment on above: Performed By: #### L 501.2450, L100.0100, L300.4310, L500.4050, L300.3900, M100.7900, BTS ####[facility] [address] [place], [address] IG% 2.500 High 0.0-0.9 [facility] Comment on above: Result Comment: IG% - Immature Granulocytes (promyelocytes, myelocytes andmetamyelocytes) > 1% indicates that a LEFT SHIFT is Present. Performed By: #### L 501.2450, L100.0100, L300.4310, L500.4050, L300.3900, M100.7900, BTS ####[facility] [address] [place], [address] Lymphocytes/100 WBC (Bld) 14.5 % Low 19-41 [facility] Comment on above: Performed By: #### L 501.2450, L100.0100, L300.4310, L500.4050, L300.3900, M100.7900, BTS ####[facility] [address] [place], [address] MCH (RBC) [Entitic mass] 26.5 pg Low 27.0-32.0 [facility] Comment on above: Performed By: #### L 501.2450, L100.0100, L300.4310, L500.4050, L300.3900, M100.7900, BTS ####[facility] [address] [place], [address] MCHC (RBC) [Mass/Vol] 31.5 g/dL Low 32-36 [facility] Comment on above: Performed By: #### L 501.2450, L100.0100, L300.4310, L500.4050, L300.3900, M100.7900, BTS ####[facility] [address] [place], [address] MCV (RBC) [Entitic vol] 84.0 fL Normal 81-99 [facility] Comment on above: Performed By: #### L 501.2450, L100.0100, L300.4310, L500.4050, L300.3900, M100.7900, BTS ####[facility] [address] [place], [address] Monocytes/100 WBC (Bld) 6.3 % Normal 0-10 [facility] Comment on above: Performed By: #### L 501.2450, L100.0100, L300.4310, L500.4050, L300.3900, M100.7900, BTS ####[facility] [address] [place], [address] Neutrophils/100 WBC (Bld) 75.7 % High 47-70 [facility] Comment on above: Performed By: #### L 501.2450, L100.0100, L300.4310, L500.4050, L300.3900, M100.7900, BTS ####[facility] [address] [place], [address] Nucleated RBC (Bld) [#/Vol] 0 10*3/uL Normal 0-5 [facility] Comment on above: Performed By: #### L 501.2450, L100.0100, L300.4310, L500.4050, L300.3900, M100.7900, BTS ####[facility] [address] [place], [address] Platelet mean volume (Bld) [Entitic vol] 8.9 fL Normal 6.2-12.0 [facility] Comment on above: Performed By: #### L 501.2450, L100.0100, L300.4310, L500.4050, L300.3900, M100.7900, BTS ####[facility] [address] [place], [address] Platelets (Bld) [#/Vol] 566 10*3/uL High 150-450 [facility] Comment on above: Performed By: #### L 501.2450, L100.0100, L300.4310, L500.4050, L300.3900, M100.7900, BTS ####[facility] [address] [place], [address] RBC (Bld) [#/Vol] 2.19 10*6/uL Low 4.2-5.4 [facility] Comment on above: Performed By: #### L 501.2450, L100.0100, L300.4310, L500.4050, L300.3900, M100.7900, BTS ####[facility] [address] [place], [address] RDW SD 50.0 fl High 35.1-43.9 [facility] Comment on above: Performed By: #### L 501.2450, L100.0100, L300.4310, L500.4050, L300.3900, M100.7900, BTS ####[facility] [address] [place], [address] WBC (Bld) [#/Vol] 22.3 10*3/uL High 4.4-11.0 [facility] Comment on above: Performed By: #### L 501.2450, L100.0100, L300.4310, L500.4050, L300.3900, M100.7900, BTS ####[facility] [address] [place], [address] CTA Abd/Pelvis W/WO Contrast on 03-08-2025 CTA Abd/Pelvis W/WO Contrast Normal [facility] Comprehensive Metabolic Prof ilon 03-08-2025 Albumin [Mass/Vol] 2.4 g/dL Low 3.4-4.8 [facility] Comment on above: Performed By: #### L 501.2450, L100.0100, L300.4310, L500.4050, L300.3900, M100.7900, BTS ####[facility] [address] [place], [address] Albumin/Globulin [Mass ratio] 0.8 {ratio} Low 0.9-2.4 [facility] Comment on above: Performed By: #### L 501.2450, L100.0100, L300.4310, L500.4050, L300.3900, M100.7900, BTS ####[facility] [address] [place], [address] ALK PHOS 72 U/L Normal 35-104 [facility] Comment on above: Performed By: #### L 501.2450, L100.0100, L300.4310, L500.4050, L300.3900, M100.7900, BTS ####[facility] [address] [place], [address] ALT [Catalytic activity/Vol] 8 U/L Normal <=34 [facility] Comment on above: Performed By: #### L 501.2450, L100.0100, L300.4310, L500.4050, L300.3900, M100.7900, BTS ####[facility] [address] [place], [address] AST [Catalytic activity/Vol] 14 U/L Normal <=31 [facility] Comment on above: Performed By: #### L 501.2450, L100.0100, L300.4310, L500.4050, L300.3900, M100.7900, BTS ####[facility] [address] [place], [address] Bilirubin [Mass/Vol] 0.17 mg/dL Normal 0.00-1.30 [facility] Comment on above: Performed By: #### L 501.2450, L100.0100, L300.4310, L500.4050, L300.3900, M100.7900, BTS ####[facility] [address] [place], [address] BUN/CRE 40.7 RATIO High 10-20 [facility] Comment on above: Performed By: #### L 501.2450, L100.0100, L300.4310, L500.4050, L300.3900, M100.7900, BTS ####[facility] [address] [place], [address] Calcium [Mass/Vol] 7.1 mg/dL Low 7.6-11.0 [facility] Comment on above: Performed By: #### L 501.2450, L100.0100, L300.4310, L500.4050, L300.3900, M100.7900, BTS ####[facility] [address] [place], [address] Chloride [Moles/Vol] 105 mmol/L Normal 98-108 [facility] Comment on above: Performed By: #### L 501.2450, L100.0100, L300.4310, L500.4050, L300.3900, M100.7900, BTS ####[facility] [address] [place], [address] CO2 [Moles/Vol] 17.6 mmol/L Low 21.0-32.0 [facility] Comment on above: Performed By: #### L 501.2450, L100.0100, L300.4310, L500.4050, L300.3900, M100.7900, BTS ####[facility] [address] [place], [address] Creatinine [Mass/Vol] 0.94 mg/dL Normal 0.70-1.20 [facility] Comment on above: Performed By: #### L 501.2450, L100.0100, L300.4310, L500.4050, L300.3900, M100.7900, BTS ####[facility] [address] [place], [address] ECRCL 40.13 ml/min Low 50-250 [facility] Comment on above: Performed By: #### L 501.2450, L100.0100, L300.4310, L500.4050, L300.3900, M100.7900, BTS ####[facility] [address] [place], [address] GAP 12 Normal 5-15 [facility] Comment on above: Performed By: #### L 501.2450, L100.0100, L300.4310, L500.4050, L300.3900, M100.7900, BTS ####[facility] [address] [place], [address] GFR/1.73 sq M.predicted among non-blacks MDRD (S/P/Bld) [Vol rate/Area] 65 mL/min/{1.73_m2} Normal >60 [facility] Comment on above: Result Comment: mL/m in/1.73m2 CKD-EPI Creatinine Equation (2020) Performed By: #### L 501.2450, L100.0100, L300.4310, L500.4050, L300.3900, M100.7900, BTS ####[facility] [address] [place], [address] Globulin (S) [Mass/Vol] 3.0 g/dL Normal 2.2-4.2 [facility] Comment on above: Performed By: #### L 501.2450, L100.0100, L300.4310, L500.4050, L300.3900, M100.7900, BTS ####[facility] [address] [place], [address] Glucose [Mass/Vol] 97 mg/dL Normal 70-99 [facility] Comment on above: Performed By: #### L 501.2450, L100.0100, L300.4310, L500.4050, L300.3900, M100.7900, BTS ####[facility] [address] [place], [address] Potassium [Moles/Vol] 4.3 mmol/L Normal 3.3-5.1 [facility] Comment on above: Performed By: #### L 501.2450, L100.0100, L300.4310, L500.4050, L300.3900, M100.7900, BTS ####[facility] [address] [place], [address] Sodium [Moles/Vol] 134 mmol/L Normal 133-145 [facility] Comment on above: Performed By: #### L 501.2450, L100.0100, L300.4310, L500.4050, L300.3900, M100.7900, BTS ####[facility] [address] [place], [address] T PROT 5.3 g/dL Low 5.9-8.4 [facility] Comment on above: Performed By: #### L 501.2450, L100.0100, L300.4310, L500.4050, L300.3900, M100.7900, BTS ####[facility] [address] [place], [address] Urea nitrogen [Mass/Vol] 38 mg/dL High 4-19 [facility] Comment on above: Performed By: #### L 501.2450, L100.0100, L300.4310, L500.4050, L300.3900, M100.7900, BTS ####[facility] [address] [place], [address] Emergency Department Summary on 03-08-2025 Emergency Department Summary Normal [facility] H AND P Exam - Hospitaliston 03-08-2025 H&P Exam - Hospitalist Normal [facility] HH, Hemoglobin AND Hematocri ton 03-08-2025 Hematocrit (Bld) [Volume fraction] 33.5 % Low 37-47 [facility] Comment on above: Performed By: #### L 100.0600 ####[facility] [address] [place], [address] Hemoglobin (Bld) [Mass/Vol] 11.4 g/dL Low 12.0-15.0 [facility] Comment on above: Performed By: #### L 100.0600 ####[facility] [address] [place], [address] Lipaseon 03-08-2025 Lipase [Catalytic activity/Vol] 10 U/L Low 13-75 [facility] Comment on above: Result Comment: Alex gay note:LIPASE revised reference range effective 22.New Lipase methodology. Expected to produce lower valuesthan the previous assay method.NEW Reference Range: 13 - 75 U/L Performed By: #### L 501.2450, L100.0100, L300.4310, L500.4050, L300.3900, M100.7900, BTS ####[facility] [address] [place], [address] MR/CON.PCM.GIon 03-08-2025 MR/CON.PCM.GI Normal [facility] Partial Thromboplast Timeon 03-08-2025 aPTT Coag (Bld) [Time] 28.3 s Normal 24.1-36.2 [facility] Comment on above: Performed By: #### L 501.2450, L100.0100, L300.4310, L500.4050, L300.3900, M100.7900, BTS ####[facility] [address] [place], [address] Prothrombin Time w/INRon INR Coag (PPP) [Relative time] 1.1 {INR} Normal [facility] Comment on above: Performed By: #### L 501.2450, L100.0100, L300.4310, L500.4050, L300.3900, M100.7900, BTS ####[facility] [address] [place], [address] PT Coag (PPP) [Time] 14.2 s Normal 11.7-14.9 [facility] Comment on above: Performed By: #### L 501.2450, L100.0100, L300.4310, L500.4050, L300.3900, M100.7900, BTS ####[facility] [address] [place], [address] Stool Occult Blood iFOBon STOB Positive Normal [facility] Comment on above: Performed By: #### L 501.2450, L100.0100, L300.4310, L500.4050, L300.3900, M100.7900, BTS ####[facility] [address] [place], [address] Type AND Screenon 03-08-2025 Ab SCREEN GEL Negative Normal [facility] Comment on above: Order Comment: HGI Performed By: #### L 501.2450, L100.0100, L300.4310, L500.4050, L300.3900, M100.7900, BTS ####[facility] [address] [place], [address] Urinalysis, Completeon 03-08 CAST,HYALINE 25-50 SEEN Normal 0-5 [facility] Comment on above: Order Comment: JOHN CTOR TO SPECIFY Performed By: #### L 400.0001 ####[facility] [address] [place], [address] EPI,SQUAMOUS 0-5 SEEN Normal 5-10 [facility] Comment on above: Order Comment: JOHN CTOR TO SPECIFY Performed By: #### L 400.0001 ####[facility] [address] [place], [address] WBC 0-5 SEEN Normal 0-5 [facility] Comment on above: Order Comment: JOHN CTOR TO SPECIFY Performed By: #### L 400.0001 ####[facility] [address] [place], [address] BACTERIA 0 SEEN Normal None Seen [facility] Comment on above: Order Comment: JOHN CTOR TO SPECIFY Performed By: #### L 400.0001 ####[facility] [address] [place], [address] Mucus Ql (Urine sed) 0 SEEN Normal [facility] Comment on above: Order Comment: JOHN CTOR TO SPECIFY Performed By: #### L 400.0001 ####[facility] [address] [place], [address] RBC 0 SEEN Normal 0-5 [facility] Comment on above: Order Comment: JOHN CTOR TO SPECIFY Performed By: #### L 400.0001 ####[facility] [address] [place], [place], [address] L3410.9992on 02-21-2025 [facility]. COMMENT Normal . [facility] Comment on above: Order Comment: [id number] 3ITRACONAZOLE RED RF Result Comment: Test Ordered: [id number] Itraconazole and Mtb, S/PTest(s) 406826-Puajeiiltnodciuamibedd developed and its performance characteristicsdetermined by [facility]. It has not been cleared or approvedby the Food and Drug Administration.Itraconazole 0.4 ug/mL Reference Range: . Reference value: Localized infection: > 0.5 ug/mL Systemic infection: > 1.0 ug/mLHydroxyitraconazole 0.4 ug/mL BN Reference Range: .Therapeutic range has not been established.Hydroxyitraconazole is an active metabolite ofitraconazole; the activity and serum concentrations aresimilar to parent drug.Performed at: [address] [id number] Director: Cheryl Montelongo MD, Phone: [phone] at: [address] [id number] Director: Mahamed Martinze PhD, Phone: [phone] Performed By: #### L 3410.9992 ####[facility] [address] [place], [address] Office Visiton 02-21-2025 Follow-up visit [id number] Codi Blank 1955 F Date Provider Department Center 02/21/2025 [id number]-GJYTISLBALJINDER RODRIGUES MG ACH ID None Family History Problem Relation Age of Onset No Known Problems Mother Heart disease Father Comments: heart attack ALS Brother Cancer Maternal Grandmother Comments: breast Alzheimer's disease Maternal Grandfather Family Status - Relation Status Age at Mother Father Brother Maternal Grandmother Maternal Grandfather Level of Service:04866 HI OFFICE/OUTPATIENT ESTABLISHED MOD MDM 30 MIN Reason for Visit and Comments: Follow-up [192400] - Bronchiectasis Normal [facility] Gram Stainon 02-09-2025 GS Gram Stain No organisms seen No Epithelial cells Normal [facility] Comment on above: Performed By: #### M 100.2500, M100.1999 ####[facility] [address] [place], [address] Nasopharyngeal Cultureon NAC No growth in 48 hours. Normal [facility] Comment on above: Performed By: #### M 100.2500, M100.1999 ####[facility] [address] [place], [address] 36on 01-24-2025 36 See TE for 01/13 kathie ent scheduled 01/24 Normal [facility] CBC (HEMOGRAM)on 01-24-2025 Erythrocyte distribution width (RBC) [Ratio] 14.2 % Normal 11.5-15.0 [facility] Comment on above: Performed By: #### L [id number] ####Senior Research Fellow: MARIO MORE ([id number])[facility])[address] [place] [address] Hematocrit (Bld) [Volume fraction] 32.8 % Low 35.0-47.0 [facility] Comment on above: Performed By: #### L [id number] ####Senior Research Fellow: MARIO MORE ([id number])[facility])[address] [place] [address] Hemoglobin (Bld) [Mass/Vol] 10.3 g/dL Low 11.7-16.0 [facility] Comment on above: Performed By: #### L [id number] ####Senior Research Fellow: MARIO MORE ([id number])[facility])[address] [place] [address] MCH (RBC) [Entitic mass] 26.8 pg Normal 26.0-34.0 [facility] Comment on above: Performed By: #### L [id number] ####Senior Research Fellow: MARIO MORE ([id number])[facility])[address] [place] [address] MCHC 31.4 % Normal 30.5-36.0 [facility] Comment on above: Performed By: #### L [id number] ####Senior Research Fellow: MARIO MORE ([id number])[facility])[address] [place] [address] MCV (RBC) [Entitic vol] 85.2 fL Normal 77.0-99.0 S [facility] Comment on above: Performed By: #### L [id number] ####Senior Research Fellow: MARIO MORE ([id number])[facility] ([facility])[address] [place] [address] Platelet mean volume (Bld) [Entitic vol] 9.8 fL Normal 9.0-12.7 [facility] Comment on above: Performed By: #### L [id number] ####Senior Research Fellow: MARIO MORE ([id number])[facility])[address] [place] [address] Platelets (Bld) [#/Vol] 547 10*3/uL High 140-440 [facility] Comment on above: Performed By: #### L [id number] ####Senior Research Fellow: MARIO MORE ([id number])[facility] ([facility])[address] [place] [address] RBC (Bld) [#/Vol] 3.85 10*6/uL Normal 3.80-5.20 [facility] Comment on above: Performed By: #### L [id number] ####Senior Research Fellow: MARIO MORE ([id number])[facility] ([facility])[address] [place] [address] WBC (Bld) [#/Vol] 15.9 10*3/uL High 3.6-10.7 [facility] Comment on above: Performed By: #### L [id number] ####Senior Research Fellow: MARIO MORE ([id number])[facility])[address] [place] [address] COMPREHENSIVE METABOLIC PANE Daniele 01-24-2025 Albumin [Mass/Vol] 3.0 g/dL Low 3.4-4.8 [facility] Comment on above: Performed By: #### L AB17 ####Senior Research Fellow: MARIO MORE ([id number])[facility] ([facility])[address] [place] [address] ALP [Catalytic activity/Vol] 96 U/L Normal 40-150 [facility] Comment on above: Performed By: #### L [id number] ####Senior Research Fellow: MARIO MORE ([id number])[facility] ([facility])[address] [place] [address] ALT [Catalytic activity/Vol] 11 U/L Normal <30 [facility] Comment on above: Performed By: #### L [id number] ####Senior Research Fellow: MARIO MORE ([id number])[facility] ([facility])[address] [place] [address] Anion gap [Moles/Vol] 11 mmol/L Normal 3-13 [facility] Comment on above: Performed By: #### L [id number] ####Senior Research Fellow: MARIO MORE ([id number])[facility] ([facility])[address] [place] [address] AST [Catalytic activity/Vol] 17 U/L Normal <34 [facility] Comment on above: Performed By: #### L [id number] ####Senior Research Fellow: MARIO MORE ([id number])[facility] ([facility])[address] [place] [address] Bilirubin [Mass/Vol] 0.2 mg/dL Normal <1.2 [facility] Comment on above: Performed By: #### L [id number] ####Senior Research Fellow: MARIO MORE ([id number])[facility] ([facility])[address] [place] [address] Calcium [Mass/Vol] 9.3 mg/dL Normal 8.8-10.0 [facility] Comment on above: Performed By: #### L [id number] ####Senior Research Fellow: MARIO MORE ([id number])[facility] ([facility])[address] [place] [address] Chloride [Moles/Vol] 101 mmol/L Normal 98-107 [facility] Comment on above: Performed By: #### L [id number] ####Senior Research Fellow: MARIO MORE ([id number])[facility])[address] [place] [address] CO2 [Moles/Vol] 27 mmol/L Normal 23-31 [facility] Comment on above: Performed By: #### L [id number] ####Senior Research Fellow: MARIO MORE ([id number])[facility])[address] [place] [address] Creatinine [Mass/Vol] 1.28 mg/dL High 0.57-1.11 [facility] Comment on above: Performed By: #### L [id number] ####Senior Research Fellow: MARIO MORE ([id number])[facility])[address] [place] [address] GLOMERULAR FILTRATION RATE ML/MIN/1.73 SQ M.PREDICTED 45.4 mL/min/1.73m*2 Low >60.0 [facility] Comment on above: Result Comment: Calc ulation based on the Chronic Kidney Disease Epidemiology Collaboration (CKD-EPI) equation refit without adjustment for race Performed By: #### L [id number] ####Senior Research Fellow: MARIO MORE ([id number])[facility] ([facility])[address] [place] [address] Glucose [Mass/Vol] 91 mg/dL Normal 82-115 [facility] Comment on above: Performed By: #### L AB17 ####Senior Research Fellow: MARIO MORE ([id number])[facility])[address] [place] [address] [place] Potassium [Moles/Vol] 4.0 mmol/L Normal 3.5-5.1 [facility] Comment on above: Result Comment: [facility] potassium values may be up to 0.5 mmol/L lower than serum values. Performed By: #### L [id number] ####Senior Research Fellow: MARIO MORE ([id number])[facility])[address] [place] [address] Protein [Mass/Vol] 6.6 g/dL Normal 6.4-8.3 [facility] Comment on above: Performed By: #### L [id number] ####Senior Research Fellow: MARIO MORE ([id number])[facility] ([facility])[address] [place] [address] Sodium [Moles/Vol] 139 mmol/L Normal 136-145 [facility] Comment on above: Performed By: #### L [id number] ####Senior Research Fellow: MARIO MORE ([id number])[facility] ([facility])[address] [place] [address] Urea nitrogen [Mass/Vol] 46 mg/dL High 9-23 [facility] Comment on above: Performed By: #### L [id number] ####Senior Research Fellow: MARIO MORE ([id number])[facility] ([facility])[address] [place] [address] FUNGAL AB PANEL (ID)on 01-24 ASPERGILLUS FLAVUS AB Negative Normal Negative [facility] Comment on above: Performed By: #### L [id number] ####[facility] ([employer])[address] [place], [place] [facility] ASPERGILLUS FUMIGATUS AB Negative Normal Negative [facility] Comment on above: Result Comment: Interpretive Criteria: Negative: Antibody not detected Positive: Antibody detected A positive result is represented by 1 or more precipitin bands, and may indicate fungus ball, allergic bronchopulmonary aspergillosis (KRISTY) or invasive aspergillosis. Generally, the appearance of 3-4 bands indicates either fungus ball or KRISTY. Performed By: #### L [id number] ####[facility] ([employer])[address] [place], [place] ASPERGILLUS NIGER AB Negative Normal Negative [facility] Comment on above: Performed By: #### L [id number] ####[facility] ([employer])[address] [place], [place] [facility] BLASTOMYCES AB Negative Normal Negative [facility] Comment on above: Result Comment: Interpretive Criteria: Negative: Antibody not detected Positive: Antibody detected A positive result is diagnostic of active or recent blastomycosis and is found in approximately 80% of proven cases of blastomycosis. Performed By: #### L [id number] ####[facility] ([employer])[address] [place], [place] [facility] PHUC AB Negative Normal Negative [facility] Comment on above: Result Comment: Interpretive Criteria: Negative: Antibody Not Detected Positive: Antibody Detected Detection of antibody recognizing Phuc is 70-80% specific for systemic candidiasis, and sensitivity is related to the immunocompetence of the patient. The immunocompromised patient with overwhelming candidiasis may not exhibit detectable Phuc antibody. Performed By: #### L [id number] ####[facility] ([employer])[address] [place] [facility] COCCIDIODES AB Negative Normal Negative [facility] Comment on above: Result Comment: Interpretive Criteria: Negative: Antibody Not Detected Positive: Antibody Detected The immunodiffusion (ID) procedure correlates both in sensitivity and clinical utility with the CF test. The ID test, which detects IgG directed to the F antigen, becomes positive within 4 weeks after infection and remains positive throughout clinically active disease. It is most useful in confirming the specificity of low CF titers, where lines of identity are formed with reference antisera. Positive ID reactions are diagnostic for coccidioidomycosis and usually indicate active or recent disease and remain detectable for up to 1 year thereafter. Performed By: #### L [id number] ####[facility] ([employer])[address] [place] [facility] H BAND Negative Normal Negative [facility] Comment on above: Result Comment: This immunodiffusion assay is highly specific for Histoplasmosis infection but may have low sensitivity in early infection. Two different immunoprecipitin bands may be detected. The M band develops with acute infection, is often present in chronic infection, and may persist for months to years. The M band may be detected in persons with recent histoplasmin skin testing. The H band, which is usually present with the M band, generally suggests a chronic or severe acute infection. The presence of both the H and M bands is considered conclusive for the diagnosis of histoplasmosis. Test Performed by [address], [employer] [facility], [address] [place], [place] Missael Marcelo M.D., Ph.D., Director of Laboratories , CLIA [id number] Performed By: #### L [id number] ####[facility] ([employer])[address] [place], [place] M BAND Negative Normal Negative [facility] Comment on above: Performed By: #### L [id number] ####[facility] ([employer])[address] [place] [facility] HISTOPLASMA GALACTOMANNAN AN TIGEN, URINE (BKR [facility])on 01-24-2025 [facility] HISTOPLASMA GALACTOMANNAN ANTIGEN, URINE SEE BELOW Normal [facility] Comment on above: Result Comment: TESTS RESULTS--------UNITS--REF. RANGE--- HISTOPLASMA ANTIGEN <0.2 ng/mL REFERENCE RANGE: <0.2 ng/mL Histoplasma galactomannan is frequently detected in urine from patients with disseminated histoplasmosis. However, a negative result does not exclude a diagnosis of histoplasmosis. Many patients with acute pulmonary disease or chronic cavitary disease do not exhibit antigenuria. Specimens from patients with other endemic fungal infections, such as blastomycosis, paracoccidioidomycosis, or candidiasis, may also be positive in this assay. This test should be used in conjunction with other diagnostics tests, including culture, molecular assays, and histology in making a final diagnosis. Test performed by [facility] [address] [address] Senior Research Fellow: Basia Paez MD,PHD,JOANNA Test Reported by [facility] [place], [address] [place] [address] Missael Marcelo M.D., Ph.D., Director of Laboratories , CLIA [id number] Performed By: #### L [id number] ####[facility] ([employer])[address] [place], [place] [facility] QUANTIFERON - PLUS PURPLE ENEDELIA Davison 01-24-2025 MITOGEN MINUS NIL (CALCULATED) >9.97 Normal [facility] Comment on above: Performed By: #### L [id number] ####Senior Research Fellow: MARIO MORE ([id number])[facility] ([facility])[address] [place] [address] NIL 0.03 IU/mL Normal [facility] Comment on above: Result Comment: VIRI Becker COMMENTS: QuantiFERON-TB Gold Plus is a qualitative indirect chemiluminescence immunoassay test for M tuberculosis infection and is intended for use in conjunction with risk assessment, radiography, and other medical and diagnostic evaluations. The QuantiFERON-TB Gold Plus result is determined by subtracting the Nil value from either TB antigen value. The Mitogen tube serves as a control for the test. The TB1-NIL tube specifically detects CD4+ lymphocyte reactivity; the TB2-NIL tube can detect both CD4+ and CD8+ lymphocyte reactivity. An overall Negative result does not completely rule out TB infection. A false-positive result in the absence of other clinical evidence of TB infection is not uncommon and may be due to infection from some nontuberculosis mycobacteria (M. kansasii, M. szulgai, or M. marinum). Clinical research suggests a QuantiFERON-TB Gold Plus interpretation of Positive with TB1 minus Nil and TB2 minus Nil values <1.00 may represent a false-positive result in the absence of other clinical evidence, especially in low-risk individuals. An overall indeterminate result is inconclusive and should not be viewed as low or intermediate infection. Indeterminate results can be caused by low Mitogen or high Nil values. Low mitogen results may occur due to a low lymphocyte count, reduced lymphocyte activity, inability of the patient's lymphocytes to generate IFN-gamma, or inappropriate handling of the tubes. High values for the Nil tube may occur due to heterophile antibody effects or nonspecific, circulating IFN-gamma in the patient's blood sample. When clinically indicated, indeterminate tests should be repeated on a new specimen. Performed By: #### L [id number] ####Senior Research Fellow: MARIO MORE ([id number])[facility] ([facility])[address] [place] [address] QUANTIFERON - TB GOLD TEST Negative Normal Negative [facility] Comment on above: Performed By: #### L [id number] ####Senior Research Fellow: MARIO MORE ([id number])[facility] ([facility])[address] [place] [address] TB1 MINUS NIL (CALCULATED) -0.01 IU/mL Normal [facility] Comment on above: Performed By: #### L [id number] ####Senior Research Fellow: MARIO MORE ([id number])[facility] ([facility])[address] [place] [address] TB2 MINUS NIL (CALCULATED) 0.00 IU/mL Normal [facility] Comment on above: Performed By: #### L [id number] ####Senior Research Fellow: MARIO MORE ([id number])[facility] ([facility])[address] [place] [address] 01-13-2025 36 Received requested records from [facility], scanned into pt's chart for your review. Also spoke w/pt who scheduled F/U with Dr. Rodrigues for 01/24/25 at 10:30am. Pt aware of appt info & address. [facility] [address] Rodrigues?s 01/13/25 1:59pm TE response, ?Spoke with MARGARET Acevedo about patient, she reiterated that their clinic routinely does not prescribe inhaled aminoglycosides or obtain cultures when they ordered a perc biopsy of lung mass back in November. Will see her again and assess her need for additional antibiotic management of her bronchiectasis. Please schedule in next 1-2 weeks. I asked for their office to forward additional biopsy results to us as well.? [facility] 36 Received VM from Bonita Acevedo NP w/[facility] returning Dr. Rodrigues's call. She's asking for call back on her cell: [phone]. Secure chat msg sent to Dr. Rodrigues informing as well. [facility] [address] Rodrigues?s 01/12/25 2:40pm TE response, ?Left VM for [facility] to call me back-JEP. I remember leaving VM back in November too.? [facility] 3601-11-2025 36 Codi called and sta santa that her high school guidance counselor is suggesting she comes back for a follow up with you because everything they have prescribed isn't working. Per your last note this is your recommendations. ASSESSMENT/PLAN 1. CAP (community acquired pneumonia) due to Pseudomonas species (CMS/HCC) (HCC) 2. Bronchiectasis without complication (HCC) 3. Pulmonary nodules/lesions, multiple 4. 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 Already on MDIs but may benefit from percussive therapy as well as hypertonic saline/pulmonary hygiene efforts. She seems reluctant to trial vest therapy due to chronic back pain. So far levofloxacin prescribed for sinusitis does not appear to impact on her clinical symptoms. Complete 14 day course. Doubt extending course wioll make a difference here. Another consideration is inhaled tobramycin three times per week which Pulmonary svc can prescribe. We will reach out to referring provider regarding these options. Likely malignancy given abnl PET scan with multiple spiculated nodules- agree with tissue biopsy- also send for routine and AFB , fungal cultures to cover D/dx. ADDITIONAL PLAN NOTES As above. No additional anti-infectives at this time. >20 min additional time spent on education regarding COPD and bronchiectasis- pathophysiology and management. I asked Codi if Dr. Néstor Salgado prescribed the Tobramycin and she stated he did not. Please advise if you would like me to schedule Codi an appointment. [facility] 01-09-[address] Rodrigues, can you please advise regarding provider's call from 01/05? [facility] 01-05-2025 36 Received call from Bonita Acevedo NP w/[facility]. She had previously referred pt to ID; 12/02/24 [facility] progress note faxed to their office this morning. After reviewing the note, Bonita has several concerns & needs to discuss with Dr. Rodrigues directly. Provider reports that in the HPI, progress note states that pt was not on any recent abx, however in the next sentence the note states that pt was prescribed Levaquin. oBnita also reports that in the plan, Dr. Rodrigues states an inhaled tobramycin should be considered & Pulm can prescribe. Bonita says that they cannot prescribe this & states this is why she referred pt to ID to begin with. And finally, Bonita reports that at the end of the progress note, it states that Dr. Rodrigues would be reaching out to the referring office to discuss the visit however they never received a call from him. Bonita is asking for a call back from Dr. Rodrigues as soon as possible. Please advise. Normal [facility] Pulmonary Visit Reporton Pulmonary Visit Report Normal [facility] Biopsy/Inj or Needle Placeme nton 12-16-2024 Biopsy/Inj or Needle Placement Normal [facility] Chest Insp/Exp 2 Viewon 11-26 Chest Insp/Exp 2 View Normal [facility] Chest Insp/Exp 2 View Normal [facility] Chest Insp/Exp 2 View Normal [facility] Special Stain Group IIon Special Stain Group II Normal [facility] Comment on above: Performed By: #### P SSII ####[facility] [address] [facility] [address] Nasopharyngeal Cultureon NAC CHRONIC SINUSITIS Clinical correlation necessary, Possible skin contamination. Susceptibility not normally performed on this organism. Corynebacterium striatum Amount Growth 3+ Normal [facility] Comment on above: Performed By: #### M 100.2500, M100.2000 ####[facility] [address] [facility] [address] CBC W/Diff, Automatedon 11-25 Absolute Lymph 2.10 X10 3/uL Normal 0.83-4.51 [facility] Comment on above: Performed By: #### L 100.0100 ####[facility] [address] [place], [address] Absolute Neut 12.0 X10 3/uL High 2.0-7.7 [facility] Comment on above: Performed By: #### L 100.0100 ####[facility] [address] [place], [address] Basophils/100 WBC (Bld) 0.4 % Normal 0-1 [facility] Comment on above: Performed By: #### L 100.0100 ####[facility] [address] [place], [address] Eosinophils/100 WBC (Bld) 2.0 % Normal 0-5 [facility] Comment on above: Performed By: #### L 100.0100 ####[facility] [address] [place], [address] Erythrocyte distribution width (RBC) [Ratio] 13.5 % Normal 11.6-14.6 [facility] Comment on above: Performed By: #### L 100.0100 ####[facility] [address] [place], [address] Hematocrit (Bld) [Volume fraction] 29.2 % Low 37-47 [facility] Comment on above: Performed By: #### L 100.0100 ####[facility] [address] [place], [address] Hemoglobin (Bld) [Mass/Vol] 9.1 g/dL Low 12.0-15.0 [facility] Comment on above: Performed By: #### L 100.0100 ####[facility] [address] [place], [address] IG% 0.800 Normal 0.0-0.9 [facility] Comment on above: Result Comment: IG% - Immature Granulocytes (promyelocytes, myelocytes andmetamyelocytes) > 1% indicates that a LEFT SHIFT is Present. Performed By: #### L 100.0100 ####[facility] [address] [place], [address] Lymphocytes/100 WBC (Bld) 13.3 % Low 19-41 [facility] Comment on above: Performed By: #### L 100.0100 ####[facility] [address] [place], [address] MCH (RBC) [Entitic mass] 27.2 pg Normal 27.0-32.0 [facility] Comment on above: Performed By: #### L 100.0100 ####[facility] [address] [place], [address] MCHC (RBC) [Mass/Vol] 31.2 g/dL Low 32-36 [facility] Comment on above: Performed By: #### L 100.0100 ####[facility] [address] [place], [address] MCV (RBC) [Entitic vol] 87.4 fL Normal 81-99 [facility] Comment on above: Performed By: #### L 100.0100 ####[facility] [address] [place], [address] Monocytes/100 WBC (Bld) 7.4 % Normal 0-10 [facility] Comment on above: Performed By: #### L 100.0100 ####[facility] [address] [place], [address] Neutrophils/100 WBC (Bld) 76.1 % High 47-70 [facility] Comment on above: Performed By: #### L 100.0100 ####[facility] [address] [place], [address] Nucleated RBC (Bld) [#/Vol] 0 10*3/uL Normal 0-5 [facility] Comment on above: Performed By: #### L 100.0100 ####[facility] [address] [place], [address] Platelet mean volume (Bld) [Entitic vol] 9.3 fL Normal 6.2-12.0 [facility] Comment on above: Performed By: #### L 100.0100 ####[facility] [address] [place], [address] Platelets (Bld) [#/Vol] 478 10*3/uL High 150-450 [facility] Comment on above: Performed By: #### L 100.0100 ####[facility] [address] [place], [address] RBC (Bld) [#/Vol] 3.34 10*6/uL Low 4.2-5.4 [facility] Comment on above: Performed By: #### L 100.0100 ####[facility] [address] [place], [address] RDW SD 43.1 fl Normal 35.1-43.9 [facility] Comment on above: Performed By: #### L 100.0100 ####[facility] [address] [place], [address] WBC (Bld) [#/Vol] 15.8 10*3/uL High 4.4-11.0 [facility] Comment on above: Performed By: #### L 100.0100 ####[facility] [address] [place], [address] Partial Thromboplast Timeon 12-09-2024 aPTT Coag (Bld) [Time] 30.4 s Normal 24.1-36.2 [facility] Comment on above: Performed By: #### L 300.4310, L300.3900 ####[facility] [address] [place], [address] Prothrombin Time w/INRon INR Coag (PPP) [Relative time] 1.0 {INR} Normal [facility] Comment on above: Performed By: #### L 300.4310, L300.3900 ####[facility] [address] [place], [address] PT Coag (PPP) [Time] 13.7 s Normal 11.7-14.9 [facility] Comment on above: Performed By: #### L 300.4310, L300.3900 ####[facility] [address] [place], [address] Gram Stainon 12-08-2024 GS CHRONIC SINUSITIS Gram Stain Rare White Blood Cells Rare Gram positive rods Normal [facility] Comment on above: Performed By: #### M 100.2500, M100.2000 ####[facility] [address] [place], [address] Office Visiton 12-02-2024 Follow-up visit [id number] Codi Blank 1955 F Date Provider Department Center 12/02/2024 [id number]-IWVDKUZBALJINDER RODRIGUES [facility] ID None Family History Problem Relation Age of Onset No Known Problems Mother Heart disease Father Comments: heart attack ALS Brother Cancer Maternal Grandmother Comments: breast Alzheimer's disease Maternal Grandfather Family Status - Relation Status Age at Mother Father Brother Maternal Grandmother Maternal Grandfather Level of Service:79500 HI OFFICE/OUTPATIENT NEW MODERATE MDM 45 MINUTES Reason for Visit and Comments: New Patient [542] - Pseudomonas sputum/work up Normal [facility] Progress Noteon 12-02-2024 Progress Note [facility] Infectious Diseases Attending Outpatient Consult Note Reason for Consult: PsA Lung infection in patient with multiple antibiotic allergies Requesting Physician: Jose Acevedo CNP [facility] Chief Complaint Patient presents with New Patient Pseudomonas sputum/work up HISTORY OF PRESENT ILLNESS The patient is a 69 y.o. female with presenting with chronic productive cough- yellowish green sputum, worse when recumbent at night and waking up, for months butnot any worse. Already on prn O2, and uses PAP at bedtime(? If compliant). Known to Pulmonary medicine due to h/oCOPD, Bronchiectasis, and it appears recurrent bouts of LRTI. Last h ospitalization was in May at [facility], and while she recalls some improvement from PNA bout that time, has had baseline symptoms since. No recent AECOPD requiring steroids. Nor recent antibiotics. Of note, has also followed with ENT for chronic rhinitis/Sinusitis compalints, and was just prescribed Levofloxacin on 11/23 for 14 days for this. Resp culture from October did grow cary-S PsA. She however denies any improvement of her symptoms even on this medication. She continues to smoke 1/2 ppd(x40 yrs) and is not willing to quit. Also, recent PET Scan done showed multiple nodules, some spiculated concerning for malignancy and is schedule for biopsy on 12/09. She describes hives to Doxycycline, Ceclor, Sulfa, Clarithromycin, PCN. Seems to tolerate FQs just fine and has been on IV Meropenem when admitted[place]/liv[place] exposure. No tB exposure. Medical History[1] Surgical History[2] Current Medications[3] Allergies[4] Social History Socioeconomic History Marital status: Spouse name: Not on file Number of children: Not on file Years of education: Not on file Highest education level: Not on file Occupational History Not on file Tobacco Use Smoking status: Every Day Current packs/day: 0.50 Types: Cigarettes Smokeless tobacco: Never Substance and Sexual Activity Alcohol use: Not Currently Comment: never heavy or regular use Drug use: Never Sexual activity: Not Currently Other Topics Concern Not on file Social History Narrative Not on file Social Drivers of Health Financial Resource Strain: Low Risk (06/06/2024) Received from [facility] Overall Financial Resource Strain (CARDIA) Difficulty of Paying Living Expenses: Not very hard Food Insecurity: Food Insecurity Present (06/04/2024) Received from [facility] Hunger Vital Sign Worried About Running Out of Food in the Last Year: Often true Ran Out of Food in the Last Year: Often true Transportation Needs: No Transportation Needs (06/06/2024) Received from [facility] PRAPARE - Transportation Lack of Transportation (Medical): No Lack of Transportation (Non-Medical): No Physical Activity: Not on file Stress: Not on file Social Connections: Not on file Intimate Partner Violence: Not At Risk (06/04/2024) Received from [facility] Humiliation, Afraid, Rape, and Kick questionnaire Fear of Current or Ex-Partner: No Emotionally Abused: No Physically Abused: No Sexually Abused: No Housing Stability: Low Risk (06/06/2024) Received from [facility] Housing Stability Vital Sign Unable to Pay for Housing in the Last Year: No Number of Times Moved in the Last Year: 0 Homeless in the Last Year: No Family History[5] Review of Systems Constitutional: Positive for fatigue and unexpected weight change (20# loss in 6 months). Negative for fever. HENT: Positive for congestion and postnasal drip. Negative for sinus pressure and sore throat. Respiratory: Positive for cough and shortness of breath. Negative for chest tightness and wheezing. Cardiovascular: Negative for chest pain and leg swelling. Gastrointestinal: Negative. Musculoskeletal: Positive for back pain (chronic, gets Ketamine infusions with Pain management). Neurological: Negative for weakness and headaches. Hematological: Bruises/bleeds easily. Psychiatric/Behavioral: Negative. Visit Vitals BP 98/58 (BP Location: Right arm, Patient Position: Sitting, BP Cuff Size: Adult) Pulse 66 Temp 36.6 ?C (97.8 ?F) (Temporal) Physical Exam Vitals reviewed. Constitutional: General: She is in acute distress. Appearance: She is ill-appearing (frail, in a motorized wheelchair). She is not toxic-appearing (mild conv dyspnea). HENT: Mouth/Throat: Mouth: Mucous membranes are moist. Pharynx: Oropharynx is clear. Eyes: General: No scleral icterus. Extraocular Movements: Extraocular movements intact. Cardiovascular: Rate and Rhythm: Normal rate and regular rhythm. Pulses: Normal pulses. Heart sounds: Normal heart sounds. No murmur heard. Pulmonary: Effort: Pulmonary effort is normal. No respiratory distr (more content not included)... Normal [facility] Partial Thromboplast Timeon 11-25-2024 aPTT Coag (Bld) [Time] 28.2 s Normal 24.1-36.2 [facility] Comment on above: Performed By: #### L 300.3900, L300.4310, L100.1900 ####[facility] [address] [place], [address] Platelet Counton 11-25-2024 Platelets (Bld) [#/Vol] 520 10*3/uL High 150-450 [facility] Comment on above: Performed By: #### L 300.3900, L300.4310, L100.1900 ####[facility] [address] [place], [address] Prothrombin Time w/INRon INR Coag (PPP) [Relative time] 1.1 {INR} Normal [facility] Comment on above: Performed By: #### L 300.3900, L300.4310, L100.1900 ####[facility] [address] [place], [address] PT Coag (PPP) [Time] 14.7 s Normal 11.7-14.9 [facility] Comment on above: Performed By: #### L 300.3900, L300.4310, L100.1900 ####[facility] [address] [place], [address] Pulmonary Visit Reporton Pulmonary Visit Report Normal [facility] PET/CT Tumor Base -Thigh Ini ton 11-22-2024 PET/CT Tumor Base -Thigh Init Normal [facility] XR SHOULDER RIGHT 2+ VIEWSon 11-22-2024 XR SHOULDER RIGHT 2+ VIEWS Interpreted By: Flaco Golden, STUDY: XR SHOULDER RIGHT 2+ VIEWS; ; 11/22/2024 8:44 am INDICATION: Signs/Symptoms:right shoulder pain. ,M79.7 Fibromyalgia,M96.1 Postlaminectomy syndrome, not elsewhere classified,G89.29 Other chronic pain,M25.511 Pain in right shoulder,G89.29 Other chronic pain COMPARISON: None. ACCESSION NUMBER(S): [id number] ORDERING CLINICIAN: ALEXANDREA MALDONADO FINDINGS: Moderate joint space narrowing with osteophyte formation involving the AC joint. The glenohumeral joint is unremarkable. There is no fracture. There is no dislocation. IMPRESSION: Moderate AC osteoarthritis. MACRO: None Signed by: Flaco Golden 11/23/2024 1:20 PM Dictation workstation: [id number] [facility] Respiratory Cultureon 2024 RESPC Normal [facility] Comment on above: Performed By: #### M 100.1999, M100.2400 ####[facility] [address] [place], [address] Gram Stainon 11-16-2024 GS Acceptable Specimen? Yes (<25 Epithelial cells per/lpf) Gram Stain 3+ Gram positive cocci 2+ Gram positive rods 2+ Epithelial cells Normal [facility] Comment on above: Performed By: #### M 100.1999, M100.2400 ####[facility] [address] [place], [address] Pulmonary Visit Reporton Pulmonary Visit Report Normal [facility] Chest without Contraston Chest without Contrast Normal [facility] Pulmonary Visit Reporton Pulmonary Visit Report Normal [facility] Gram Stainon 09-11-2024 GS Gram Stain No organisms seen No cells seen Normal [facility] Comment on above: Performed By: #### M 100.1999, M100.2500 ####[facility] [address] [place], [address] Nasopharyngeal Cultureon NAC Normal [facility] Comment on above: Performed By: #### M 100, M100.2500 ####[facility] [address] [place], [address] CBC W/Diff, Automatedon Absolute Lymph 3.11 X10 3/uL Normal 0.83-4.51 [facility] Comment on above: Performed By: #### L 500.4050, L501.9520, L501.94757, L100.0100, L506.0400 ####[facility] [address] [place], [address] Absolute Neut 6.6 X10 3/uL Normal 2.0-7.7 [facility] Comment on above: Performed By: #### L 500.4050, L501.9520, L501.72501, L100.0100, L506.0400 ####[facility] [address] [place], [address] Basophils/100 WBC (Bld) 0.6 % Normal 0-1 [facility] Comment on above: Performed By: #### L 500.4050, L501.9520, L501.02429, L100.0100, L506.0400 ####[facility] [address] [place], [address] Eosinophils/100 WBC (Bld) 1.1 % Normal 0-5 [facility] Comment on above: Performed By: #### L 500.4050, L501.9520, L501.55292, L100.0100, L506.0400 ####[facility] [address] [place], [address] Erythrocyte distribution width (RBC) [Ratio] 14.8 % High 11.6-14.6 [facility] Comment on above: Performed By: #### L 500.4050, L501.9520, L501.78897, L100.0100, L506.0400 ####[facility] [address] [place], [address] Hematocrit (Bld) [Volume fraction] 37.1 % Normal 37-47 [facility] Comment on above: Performed By: #### L 500.4050, L501.9520, L501.44120, L100.0100, L506.0400 ####[facility] [address] [place], [address] Hemoglobin (Bld) [Mass/Vol] 12.0 g/dL Normal 12.0-15.0 [facility] Comment on above: Performed By: #### L 500.4050, L501.9520, L501.53156, L100.0100, L506.0400 ####[facility] [address] [place], [address] IG% 0.400 Normal 0.0-0.9 [facility] Comment on above: Result Comment: IG% - Immature Granulocytes (promyelocytes, myelocytes andmetamyelocytes) > 1% indicates that a LEFT SHIFT is Present. Performed By: #### L 500.4050, L501.9520, L501.01464, L100.0100, L506.0400 ####[facility] [address] [place], [address] Lymphocytes/100 WBC (Bld) 29.0 % Normal 19-41 [facility] Comment on above: Performed By: #### L 500.4050, L501.9520, L501.36974, L100.0100, L506.0400 ####[facility] [address] [place], [address] MCH (RBC) [Entitic mass] 28.4 pg Normal 27.0-32.0 [facility] Comment on above: Performed By: #### L 500.4050, L501.9520, L501.12270, L100.0100, L506.0400 ####[facility] [address] [place], [address] MCHC (RBC) [Mass/Vol] 32.3 g/dL Normal 32-36 [facility] Comment on above: Performed By: #### L 500.4050, L501.9520, L501.89109, L100.0100, L506.0400 ####[facility] [address] [place], [address] MCV (RBC) [Entitic vol] 87.9 fL Normal 81-99 [facility] Comment on above: Performed By: #### L 500.4050, L501.9520, L501.87517, L100.0100, L506.0400 ####[facility] [address] [place], [address] Monocytes/100 WBC (Bld) 7.0 % Normal 0-10 [facility] Comment on above: Performed By: #### L 500.4050, L501.9520, L501.89149, L100.0100, L506.0400 ####[facility] [address] [place], [address] Neutrophils/100 WBC (Bld) 61.9 % Normal 47-70 [facility] Comment on above: Performed By: #### L 500.4050, L501.9520, L501.49588, L100.0100, L506.0400 ####[facility] [address] [place], [address] Nucleated RBC (Bld) [#/Vol] 0 10*3/uL Normal 0-5 [facility] Comment on above: Performed By: #### L 500.4050, L501.9520, L501.03947, L100.0100, L506.0400 ####[facility] [address] [place], [address] Platelet mean volume (Bld) [Entitic vol] 9.3 fL Normal 6.2-12.0 [facility] Comment on above: Performed By: #### L 500.4050, L501.9520, L501.08684, L100.0100, L506.0400 ####[facility] [address] [place], [address] Platelets (Bld) [#/Vol] 418 10*3/uL Normal 150-450 [facility] Comment on above: Performed By: #### L 500.4050, L501.9520, L501.79768, L100.0100, L506.0400 ####[facility] [address] [place], [address] RBC (Bld) [#/Vol] 4.22 10*6/uL Normal 4.2-5.4 [facility] Comment on above: Performed By: #### L 500.4050, L501.9520, L501.99911, L100.0100, L506.0400 ####[facility] [address] [place], [address] RDW SD 47.1 fl High 35.1-43.9 [facility] Comment on above: Performed By: #### L 500.4050, L501.9520, L501.44352, L100.0100, L506.0400 ####[facility] [address] [place], [address] WBC (Bld) [#/Vol] 10.7 10*3/uL Normal 4.4-11.0 [facility] Comment on above: Performed By: #### L 500.4050, L501.9520, L501.65980, L100.0100, L506.0400 ####[facility] [address] [place], [address] [facility] 08-25-2024 Albumin [Mass/Vol] 3.9 g/dL Normal 3.4-4.8 [facility] Comment on above: Performed By: #### L 500.4050, L501.9520, L501.65357, L100.0100, L506.0400 ####[facility] [address] [place], [address] Albumin/Globulin [Mass ratio] 1.2 {ratio} Normal 0.9-2.4 [facility] Comment on above: Performed By: #### L 500.4050, L501.9520, L501.90529, L100.0100, L506.0400 ####[facility] [address] [place], [address] ALK PHOS 73 U/L Normal 35-104 [facility] Comment on above: Performed By: #### L 500.4050, L501.9520, L501.77087, L100.0100, L506.0400 ####[facility] [address] [place], [address] ALT [Catalytic activity/Vol] 20 U/L Normal <=34 [facility] Comment on above: Performed By: #### L 500.4050, L501.9520, L501.07501, L100.0100, L506.0400 ####[facility] [address] [place], [address] AST [Catalytic activity/Vol] 24 U/L Normal <=31 [facility] Comment on above: Performed By: #### L 500.4050, L501.9520, L501.86428, L100.0100, L506.0400 ####[facility] [address] [place], [address] BUN/CRE 25.0 RATIO High 10-20 [facility] Comment on above: Performed By: #### L 500.4050, L501.9520, L501.06243, L100.0100, L506.0400 ####[facility] [address] [place], [address] Calcium [Mass/Vol] 9.2 mg/dL Normal 7.6-11.0 [facility] Comment on above: Performed By: #### L 500.4050, L501.9520, L501.24116, L100.0100, L506.0400 ####[facility] [address] [place], [address] Chloride [Moles/Vol] 100 mmol/L Normal 98-108 [facility] Comment on above: Performed By: #### L 500.4050, L501.9520, L501.26023, L100.0100, L506.0400 ####[facility] [address] [place], [address] CO2 [Moles/Vol] 26.9 mmol/L Normal 21.0-32.0 [facility] Comment on above: Performed By: #### L 500.4050, L501.9520, L501.79397, L100.0100, L506.0400 ####[facility] [address] [place], [address] Creatinine [Mass/Vol] 1.07 mg/dL Normal 0.70-1.20 [facility] Comment on above: Performed By: #### L 500.4050, L501.9520, L501.10812, L100.0100, L506.0400 ####[facility] [address] [place], [address] GAP 12 Normal 5-15 [facility] Comment on above: Performed By: #### L 500.4050, L501.9520, L501.60683, L100.0100, L506.0400 ####[facility] [address] [place], [address] GFR/1.73 sq M.predicted among non-blacks MDRD (S/P/Bld) [Vol rate/Area] 56 mL/min/{1.73_m2} Low >60 [facility] Comment on above: Result Comment: mL/m in/1.73m2 CKD-EPI Creatinine Equation (2020) Performed By: #### L 500.4050, L501.9520, L501.62645, L100.0100, L506.0400 ####[facility] [address] [place], [address] Globulin (S) [Mass/Vol] 3.2 g/dL Normal 2.2-4.2 [facility] Comment on above: Performed By: #### L 500.4050, L501.9520, L501.83859, L100.0100, L506.0400 ####[facility] [address] [place], [address] Glucose [Mass/Vol] 85 mg/dL Normal 70-99 [facility] Comment on above: Performed By: #### L 500.4050, L501.9520, L501.86684, L100.0100, L506.0400 ####[facility] [address] [place], [address] Potassium [Moles/Vol] 3.7 mmol/L Normal 3.3-5.1 [facility] Comment on above: Performed By: #### L 500.4050, L501.9520, L501.74036, L100.0100, L506.0400 ####[facility] [address] [place], [address] Sodium [Moles/Vol] 139 mmol/L Normal 133-145 [facility] Comment on above: Performed By: #### L 500.4050, L501.9520, L501.39701, L100.0100, L506.0400 ####[facility] [address] [place], [address] T BILI < 0.15 Normal 0.00-1.30 [facility] Comment on above: Performed By: #### L 500.4050, L501.9520, L501.88364, L100.0100, L506.0400 ####[facility] [address] [place], [address] T PROT 7.0 g/dL Normal 5.9-8.4 [facility] Comment on above: Performed By: #### L 500.4050, L501.9520, L501.34823, L100.0100, L506.0400 ####[facility] [address] [place], [address] Urea nitrogen [Mass/Vol] 27 mg/dL High 4-19 [facility] Comment on above: Performed By: #### L 500.4050, L501.9520, L501.71591, L100.0100, L506.0400 ####[facility] [address] [place], [address] Free T3on 08-25-2024 Free T3 [Mass/Vol] 5.9 pg/mL High 2.18-3.98 [facility] Comment on above: Performed By: #### L 500.4050, L501.9520, L501.13286, L100.0100, L506.0400 ####[facility] [address] [place], [address] T4 Free Directon 08-25-2024 T4 FREE DIRECT 1.00 ng/dL Normal 0.76-1.46 [facility] Comment on above: Performed By: #### L 500.4050, L501.9520, L501.17324, L100.0100, L506.0400 ####[facility] [address] [place], [place], [address] Thyroid Stim Hormone (TSH)on 08-25-2024 TSH 1.600 uIU/mL Normal 0.300-4.200 [facility] Comment on above: Performed By: #### L 500.4050, L501.9520, L501.82611, L100.0100, L506.0400 ####[facility] [address] [place], [address] Chest without Contraston Chest without Contrast Normal [facility] Ext Non Vasc Limited/Soft Ti sson 06-30-2024 Ext Non Vasc Limited/Soft Tiss Normal [facility] CBC W/Diff, Automatedon - Absolute Lymph 2.73 X10 3/uL Normal 0.83-4.51 [facility] Comment on above: Performed By: #### L 506.1001, L506.0400, L100.0100, L501.22387, L500.4050, L501.9520 ####[facility] [address] [place], [address] Absolute Neut 9.8 X10 3/uL High 2.0-7.7 [facility] Comment on above: Performed By: #### L 506.1001, L506.0400, L100.0100, L501.70236, L500.4050, L501.9520 ####[facility] [address] [place], [address] Basophils/100 WBC (Bld) 0.2 % Normal 0-1 [facility] Comment on above: Performed By: #### L 506.1001, L506.0400, L100.0100, L501.92466, L500.4050, L501.9520 ####[facility] [address] [place], [address] Eosinophils/100 WBC (Bld) 0.7 % Normal 0-5 [facility] Comment on above: Performed By: #### L 506.1001, L506.0400, L100.0100, L501.95431, L500.4050, L501.9520 ####[facility] [address] [place], [address] Erythrocyte distribution width (RBC) [Ratio] 19.6 % High 11.6-14.6 [facility] Comment on above: Performed By: #### L 506.1001, L506.0400, L100.0100, L501.19626, L500.4050, L501.9520 ####[facility] [address] [place], [address] Hematocrit (Bld) [Volume fraction] 33.2 % Low 37-47 [facility] Comment on above: Performed By: #### L 506.1001, L506.0400, L100.0100, L501.82150, L500.4050, L501.9520 ####[facility] [address] [place], [address] Hemoglobin (Bld) [Mass/Vol] 10.4 g/dL Low 12.0-15.0 [facility] Comment on above: Performed By: #### L 506.1001, L506.0400, L100.0100, L501.41069, L500.4050, L501.9520 ####[facility] [address] [place], [address] IG% 0.400 Normal 0.0-0.9 [facility] Comment on above: Result Comment: IG% - Immature Granulocytes (promyelocytes, myelocytes andmetamyelocytes) > 1% indicates that a LEFT SHIFT is Present. Performed By: #### L 506.1001, L506.0400, L100.0100, L501.89618, L500.4050, L501.9520 ####[facility] [address] [place], [address] Lymphocytes/100 WBC (Bld) 19.5 % Normal 19-41 [facility] Comment on above: Performed By: #### L 506.1001, L506.0400, L100.0100, L501.35646, L500.4050, L501.9520 ####[facility] [address] [place], [address] MCH (RBC) [Entitic mass] 27.5 pg Normal 27.0-32.0 [facility] Comment on above: Performed By: #### L 506.1001, L506.0400, L100.0100, L501.94655, L500.4050, L501.9520 ####[facility] [address] [place], [address] MCHC (RBC) [Mass/Vol] 31.3 g/dL Low 32-36 [facility] Comment on above: Performed By: #### L 506.1001, L506.0400, L100.0100, L501.11764, L500.4050, L501.9520 ####[facility] [address] [place], [address] MCV (RBC) [Entitic vol] 87.8 fL Normal 81-99 [facility] Comment on above: Performed By: #### L 506.1001, L506.0400, L100.0100, L501.04143, L500.4050, L501.9520 ####[facility] [address] [place], [address] Monocytes/100 WBC (Bld) 8.9 % Normal 0-10 [facility] Comment on above: Performed By: #### L 506.1001, L506.0400, L100.0100, L501.52293, L500.4050, L501.9520 ####[facility] [address] [place], [address] Neutrophils/100 WBC (Bld) 70.3 % High 47-70 [facility] Comment on above: Performed By: #### L 506.1001, L506.0400, L100.0100, L501.82037, L500.4050, L501.9520 ####[facility] [address] [place], [address] Nucleated RBC (Bld) [#/Vol] 0 10*3/uL Normal 0-5 [facility] Comment on above: Performed By: #### L 506.1001, L506.0400, L100.0100, L501.76304, L500.4050, L501.9520 ####[facility] [address] [place], [address] Platelet mean volume (Bld) [Entitic vol] 10.4 fL Normal 6.2-12.0 [facility] Comment on above: Performed By: #### L 506.1001, L506.0400, L100.0100, L501.41847, L500.4050, L501.9520 ####[facility] [address] [place], [address] Platelets (Bld) [#/Vol] 484 10*3/uL High 150-450 [facility] Comment on above: Performed By: #### L 506.1001, L506.0400, L100.0100, L501.10937, L500.4050, L501.9520 ####[facility] [address] [place], [address] RBC (Bld) [#/Vol] 3.78 10*6/uL Low 4.2-5.4 [facility] Comment on above: Performed By: #### L 506.1001, L506.0400, L100.0100, L501.89601, L500.4050, L501.9520 ####[facility] [address] [place], [address] RDW SD 63.4 fl High 35.1-43.9 [facility] Comment on above: Performed By: #### L 506.1001, L506.0400, L100.0100, L501.45636, L500.4050, L501.9520 ####[facility] [address] [place], [address] WBC (Bld) [#/Vol] 14.0 10*3/uL High 4.4-11.0 [facility] Comment on above: Performed By: #### L 506.1001, L506.0400, L100.0100, L501.31301, L500.4050, L501.9520 ####[facility] [address] [place], [address] Comprehensive Metabolic Prof ilon 06-23-2024 Albumin [Mass/Vol] 3.4 g/dL Normal 3.4-4.8 [facility] Comment on above: Order Comment: C Performed By: #### L 506.1001, L506.0400, L100.0100, L501.50482, L500.4050, L501.9520 ####[facility] [address] [place], [address] Albumin/Globulin [Mass ratio] 1.1 {ratio} Normal 0.9-2.4 [facility] Comment on above: Order Comment: C Performed By: #### L 506.1001, L506.0400, L100.0100, L501.10947, L500.4050, L501.9520 ####[facility] [address] [place], [address] ALK PHOS 67 U/L Normal 35-104 [facility] Comment on above: Order Comment: C Performed By: #### L 506.1001, L506.0400, L100.0100, L501.22478, L500.4050, L501.9520 ####[facility] [address] [place], [address] ALT [Catalytic activity/Vol] 16 U/L Normal <=34 [facility] Comment on above: Order Comment: C Performed By: #### L 506.1001, L506.0400, L100.0100, L501.52610, L500.4050, L501.9520 ####[facility] [address] [place], [address] Anion gap [Moles/Vol] 14 mmol/L Normal 5-15 [facility] Comment on above: Order Comment: C Performed By: #### L 506.1001, L506.0400, L100.0100, L501.16843, L500.4050, L501.9520 ####[facility] [address] [place], [address] AST [Catalytic activity/Vol] 23 U/L Normal <=31 [facility] Comment on above: Order Comment: C Performed By: #### L 506.1001, L506.0400, L100.0100, L501.74665, L500.4050, L501.9520 ####[facility] [address] [place], [address] Bilirubin [Mass/Vol] 0.17 mg/dL Normal 0.00-1.30 [facility] Comment on above: Order Comment: C Performed By: #### L 506.1001, L506.0400, L100.0100, L501.30014, L500.4050, L501.9520 ####[facility] [address] [place], [address] BUN/CRE 22.4 RATIO High 10-20 [facility] Comment on above: Order Comment: C Performed By: #### L 506.1001, L506.0400, L100.0100, L501.69840, L500.4050, L501.9520 ####[facility] [address] [place], [address] Calcium [Mass/Vol] 9.1 mg/dL Normal 7.6-11.0 [facility] Comment on above: Order Comment: C Performed By: #### L 506.1001, L506.0400, L100.0100, L501.36913, L500.4050, L501.9520 ####[facility] [address] [place], [address] Chloride [Moles/Vol] 104 mmol/L Normal 96-108 [facility] Comment on above: Order Comment: C Performed By: #### L 506.1001, L506.0400, L100.0100, L501.86132, L500.4050, L501.9520 ####[facility] [address] [place], [address] CO2 [Moles/Vol] 24.9 mmol/L Normal 22.0-29.0 [facility] Comment on above: Order Comment: C Performed By: #### L 506.1001, L506.0400, L100.0100, L501.77991, L500.4050, L501.9520 ####[facility] [address] [place], [address] Creatinine [Mass/Vol] 1.0 mg/dL Normal 0.6-1.0 [facility] Comment on above: Order Comment: C Performed By: #### L 506.1001, L506.0400, L100.0100, L501.28263, L500.4050, L501.9520 ####[facility] [address] [place], [address] GFR/1.73 sq M.predicted among non-blacks MDRD (S/P/Bld) [Vol rate/Area] 64 mL/min/{1.73_m2} Normal >60 [facility] Comment on above: Order Comment: C Result Comment: mL/m in/1.73m2 CKD-EPI Creatinine Equation (2020) Performed By: #### L 506.1001, L506.0400, L100.0100, L501.59363, L500.4050, L501.9520 ####[facility] [address] [place], [address] Globulin (S) [Mass/Vol] 3.0 g/dL Normal 2.2-4.2 [facility] Comment on above: Order Comment: C Performed By: #### L 506.1001, L506.0400, L100.0100, L501.30622, L500.4050, L501.9520 ####[facility] [address] [place], [address] Glucose [Mass/Vol] 87 mg/dL Normal 70-99 [facility] Comment on above: Order Comment: C Performed By: #### L 506.1001, L506.0400, L100.0100, L501.40605, L500.4050, L501.9520 ####[facility] [address] [place], [address] Potassium [Moles/Vol] 3.4 mmol/L Normal 3.3-5.1 [facility] Comment on above: Order Comment: C Performed By: #### L 506.1001, L506.0400, L100.0100, L501.02922, L500.4050, L501.9520 ####[facility] [address] [place], [address] Sodium [Moles/Vol] 143 mmol/L Normal 133-145 [facility] Comment on above: Order Comment: C Performed By: #### L 506.1001, L506.0400, L100.0100, L501.18846, L500.4050, L501.9520 ####[facility] [address] [place], [address] T PROT 6.4 g/dL Normal 5.9-8.4 [facility] Comment on above: Order Comment: C Performed By: #### L 506.1001, L506.0400, L100.0100, L501.88877, L500.4050, L501.9520 ####[facility] [address] [place], [address] Urea nitrogen [Mass/Vol] 22 mg/dL High 4-19 [facility] Comment on above: Order Comment: C Performed By: #### L 506.1001, L506.0400, L100.0100, L501.76928, L500.4050, L501.9520 ####[facility] [address] [place], [address] Free T3on 06-23-2024 Free T3 [Mass/Vol] 3.8 pg/mL Normal 2.18-3.98 [facility] Comment on above: Order Comment: C Performed By: #### L 506.1001, L506.0400, L100.0100, L501.64745, L500.4050, L501.9520 ####[facility] [address] [place], [address] L506.1001on 06-23-2024 Vitamin D 25-OH 44.6 ng/mL Normal 30-100 [facility] Comment on above: Result Comment: Berna min D StatusDeficiency: <20 ng/mL (50nmol/L)Insufficiency: 20-30 ng/mL (50-75 nmol/L)Sufficiency: 30-100 ng/mL (75-250 nmol/L)Toxicity: >100 ng/mL (>250 nmol/L) Performed By: #### L 506.1001, L506.0400, L100.0100, L501.65792, L500.4050, L501.9520 ####[facility] [address] [place], [address] T4 Free Directon 06-23-2024 T4 FREE DIRECT 1.10 ng/dL Normal 0.76-1.46 [facility] Comment on above: Order Comment: C Performed By: #### L 506.1001, L506.0400, L100.0100, L501.58753, L500.4050, L501.9520 ####[facility] [address] [place], [address] Thyroid Stim Hormone (TSH)on 06-23-2024 TSH 1.460 uIU/mL Normal 0.300-4.200 [facility] Comment on above: Performed By: #### L 506.1001, L506.0400, L100.0100, L501.21169, L500.4050, L501.9520 ####[facility] [address] [place], [address] Basic metabolic 2000 panelon 06-07-2024 Anion gap [Moles/Vol] 9 mmol/L Low 10 - 2 0 mmol/L [facility] Calcium [Mass/Vol] 8.8 mg/dL 8.6 - 10. 3 mg/dL [facility] Chloride [Moles/Vol] 103 mmol/L 98 - 10 7 mmol/L [facility] CO2 [Moles/Vol] 31 mmol/L 21 - 32 mmol/L [facility] Creatinine [Mass/Vol] 0.64 mg/dL 0.50 - 1.05 mg/dL [facility] eGFR - PINF [facility] Comment on above: Calculations of niurka mated GFR are performed using the 2020 CKD-EPI Study Refit equation without the race variable for the IDMS-Traceable creatinine methods. https://jasn.asnjournals.org/content/early//ASN.2020 456801 Glucose [Mass/Vol] 81 mg/dL 74 - 99 mg/dL [facility] Interpretation and review of laboratory results Abnormal [facility] Potassium [Moles/Vol] 4.3 mmol/L 3.5 - 5.3 mmol/L [facility] Sodium [Moles/Vol] 139 mmol/L 136 - 145 mmol/L [facility] Urea nitrogen [Mass/Vol] 15 mg/dL 6 - 23 mg/dL [facility] Anion gap [Moles/Vol] 9 mmol/L Low 10-20 [facility] Comment on above: Performed By: #### 2 4339-4 #### FIDEL Hutchinson ([id number]) [facility] (C) [address] [place] [address] Calcium [Mass/Vol] 8.8 mg/dL Normal 8.6-10.3 [facility] Comment on above: Performed By: #### 2 4339-4 #### FIDEL Hutchinson ([id number]) [facility] ([facility]) [address] [place] [address] Chloride [Moles/Vol] 103 mmol/L Normal 98-[address] [facility] Comment on above: Performed By: #### 2 4339-4 #### FIDEL Hutchinson ([id number]) [facility] ([facility]) [address] [place] [address] CO2 [Moles/Vol] 31 mmol/L Normal 21-32 [facility] Comment on above: Performed By: #### 2 4339-4 #### FIDEL Hutchinson ([id number]) [facility] ([facility]) [address] [place] [address] Creatinine [Mass/Vol] 0.64 mg/dL Normal 0.50-1.05 [facility] Comment on above: Performed By: #### 2 4339-4 #### FIDEL Hutchinson ([id number]) [facility] ([facility]) [address] [place] [address] GFR/1.73 sq M.predicted MDRD (S/P/Bld) [Vol rate/Area] mL/min/{1.73_m2} Normal >60 [facility] Comment on above: Result Comment: Calc ulations of estimated GFR are performed using the 2020 CKD-EPI Study Refit equation without the race variable for the IDMS-Traceable creatinine methods. https://jasn.asnjournals.org/content//ASN.2020 840917 Performed By: #### 2 4339-4 #### FIDEL Hutchinson ([id number]) [facility] ([facility]) [address] [place] [address] Glucose [Mass/Vol] 81 mg/dL Normal 74-99 [facility] Comment on above: Performed By: #### 2 4339-4 #### FIDEL Hutchinson ([id number]) [facility] ([facility]) [address] [place] [address] Potassium [Moles/Vol] 4.3 mmol/L Normal 3.5-5.3 [facility] Comment on above: Performed By: #### 2 4339-4 #### FIDEL MOORES G ([id number]) [facility] ([facility]) [address] [place] [address] Sodium [Moles/Vol] 139 mmol/L Normal 136-145 [facility] Comment on above: Performed By: #### 2 4339-4 #### FIDEL Hutchinson ([id number]) [facility] ([facility]) [address] [place] [address] Urea nitrogen [Mass/Vol] 15 mg/dL Normal 6-23 [facility] Comment on above: Performed By: #### 2 4339-4 #### FIDEL LOYOLA G ([id number]) [facility] ([facility]) [address] [place] [address] CBC panel Auto (Bld)on 06-07 Erythrocyte distribution width (RBC) [Ratio] 21.8 % High 11.5 - 14.5 % [facility] Hematocrit (Bld) [Volume fraction] 26.5 % Low 36.0 - 46.0 % [facility] Hemoglobin (Bld) [Mass/Vol] 8 g/dL Low 12.0 - 16.0 g/dL [facility] Interpretation and review of laboratory results Abnormal [facility] MCH (RBC) [Entitic mass] 27.3 pg 26.0 - 34.0 pg [facility] MCHC (RBC) [Mass/Vol] 30.2 g/dL Low 32.0 - 36.0 g/dL [facility] MCV (RBC) [Entitic vol] 90 fL 80 - 100 fL [facility] Nucleated RBC/100 WBC (Bld) [Ratio] 0 % [facility] Platelets (Bld) [#/Vol] 575 10*3/uL High [facility] RBC (Bld) [#/Vol] 2.93 10*6/uL Low [facility] WBC (Bld) [#/Vol] 11.1 10*3/uL [facility] Erythrocyte distribution width (RBC) [Ratio] 21.8 % High 11.5-14.5 [facility] Comment on above: Performed By: #### 5 8410-2 ####FIDEL Hutchinson ([id number])[facility] ([facility])[address] [place] [address] Hematocrit (Bld) [Volume fraction] 26.5 % Low 36.0-46.0 [facility] Comment on above: Performed By: #### 5 8410-2 ####FIDEL Hutchinson ([id number])[facility] ([facility])[address] [place] [address] Hemoglobin (Bld) [Mass/Vol] 8.0 g/dL Low 12.0-16.0 [facility] Comment on above: Performed By: #### 5 8410-2 ####FIDEL Hutchinson ([id number])[facility] ([facility])[address] [place] [address] MCH (RBC) [Entitic mass] 27.3 pg Normal 26.0-34.0 [facility] Comment on above: Performed By: #### 5 8410-2 ####FIDEL Hutchinson ([id number])[facility] ([facility])[address] [place] [address] MCHC (RBC) [Mass/Vol] 30.2 g/dL Low 32.0-36.0 [facility] Comment on above: Performed By: #### 5 8410-2 ####FIDEL Hutchinson ([id number])[facility] ([facility])[address] [place] [address] MCV (RBC) [Entitic vol] 90 fL Normal 80-[address] [facility] Comment on above: Performed By: #### 5 8410-2 ####FIDEL Hutchinson ([id number])[facility] ([facility])[address] [place] [address] Nucleated RBC/100 WBC (Bld) [Ratio] 0.0 /100 WBCs Normal 0.0-0.0 [facility] Comment on above: Performed By: #### 5 8410-2 ####FIDEL Hutchinson ([id number])[facility] ([facility])[address] [place] [address] Platelets (Bld) [#/Vol] 575 x10*3/uL High 150-450 [facility] Comment on above: Performed By: #### 5 8410-2 ####FIDEL Hutchinson ([id number])[facility] ([facility])[address] [place] [address] RBC (Bld) [#/Vol] 2.93 x10*6/uL Low 4.00-5.[address] [facility] Comment on above: Performed By: #### 5 8410-2 ####FIDEL Hutchinson ([id number])[facility] ([facility])[address] [place] [address] WBC (Bld) [#/Vol] 11.1 x10*3/uL Normal 4.4-11.[address] [facility] Comment on above: Performed By: #### 5 8410-2 ####FIDEL Hutchinson ([id number])[facility] ([facility])[address] [place] [address] Basic metabolic 2000 panelon 06-06-2024 Anion gap [Moles/Vol] 10 mmol/L 10 - 2 0 mmol/L [facility] Calcium [Mass/Vol] 8.8 mg/dL 8.6 - 10. 3 mg/dL [facility] Chloride [Moles/Vol] 101 mmol/L 98 - 10 7 mmol/L [facility] CO2 [Moles/Vol] 29 mmol/L 21 - 32 mmol/L [facility] Creatinine [Mass/Vol] 0.64 mg/dL 0.50 - 1.05 mg/dL [facility] eGFR - PINF [facility] Comment on above: Calculations of niurka mated GFR are performed using the 2020 CKD-EPI Study Refit equation without the race variable for the IDMS-Traceable creatinine methods. https://jasn.asnjournals.org/content/early/ASN.2020 671151 Glucose [Mass/Vol] 197 mg/dL High 74 - 99 mg/dL [facility] Interpretation and review of laboratory results Abnormal [facility] Potassium [Moles/Vol] 4.4 mmol/L 3.5 - 5.3 mmol/L [facility] Sodium [Moles/Vol] 136 mmol/L 136 - 145 mmol/L [facility] Urea nitrogen [Mass/Vol] 12 mg/dL 6 - 23 mg/dL [facility] Anion gap [Moles/Vol] 10 mmol/L Normal 10-20 [facility] Comment on above: Performed By: #### 2 4321-2 ####FIDEL PAINTERRENS G ([id number])[facility] ([facility])[address] [place] [address] Calcium [Mass/Vol] 8.8 mg/dL Normal 8.6-10.3 [facility] Comment on above: Performed By: #### 2 4321-2 ####FIDEL MILLA G ([id number])[facility] ([facility])[address] [place] [address] Chloride [Moles/Vol] 101 mmol/L Normal 98-[address] [facility] Comment on above: Performed By: #### 2 4321-2 ####FIDEL MILLA G ([id number])[facility] ([facility])[address] [place] [address] CO2 [Moles/Vol] 29 mmol/L Normal 21-32 [facility] Comment on above: Performed By: #### 2 4321-2 ####FIDEL MILLA G ([id number])[facility] ([facility])[address] [place] [address] Creatinine [Mass/Vol] 0.64 mg/dL Normal 0.50-1.05 [facility] Comment on above: Performed By: #### 2 4321-2 ####FIDEL Hutchinson ([id number])[facility] ([facility])[address] [place] [address] GFR/1.73 sq M.predicted MDRD (S/P/Bld) [Vol rate/Area] mL/min/{1.73_m2} Normal >60 [facility] Comment on above: Result Comment: Calc ulations of estimated GFR are performed using the 2020 CKD-EPI Study Refit equation without the race variable for the IDMS-Traceable creatinine methods. https://jasn.asnjournals.org/content/early//ASN.2020 560963 Performed By: #### 2 4321-2 ####FIDEL Hutchinson ([id number])[facility] ([facility])[address] [place] [address] Glucose [Mass/Vol] 197 mg/dL High 74-99 [facility] Comment on above: Performed By: #### 2 4321-2 ####FIDEL Hutchinson ([id number])[facility] ([facility])[address] [place] [address] Potassium [Moles/Vol] 4.4 mmol/L Normal 3.5-5.3 [facility] Comment on above: Performed By: #### 2 4321-2 ####FIDEL LOYOLA G ([id number])[facility] ([facility])[address] [place] [address] Sodium [Moles/Vol] 136 mmol/L Normal 136-145 [facility] Comment on above: Performed By: #### 2 4321-2 ####FIDEL LOYOLA G ([id number])[facility] ([facility])[address] [place] [address] Urea nitrogen [Mass/Vol] 12 mg/dL Normal 6-23 [facility] Comment on above: Performed By: #### 2 4321-2 ####FIDEL Hutchinson ([id number])[facility] ([facility])[address] [place] [address] CBC panel Auto (Bld)on 06-06 Erythrocyte distribution width (RBC) [Ratio] 21.2 % High 11.5 - 14.5 % [facility] Hematocrit (Bld) [Volume fraction] 29.1 % Low 36.0 - 46.0 % [facility] Hemoglobin (Bld) [Mass/Vol] 9 g/dL Low 12.0 - 16.0 g/dL [facility] Interpretation and review of laboratory results Abnormal [facility] MCH (RBC) [Entitic mass] 27.8 pg 26.0 - 34.0 pg [facility] MCHC (RBC) [Mass/Vol] 30.9 g/dL Low 32.0 - 36.0 g/dL [facility] MCV (RBC) [Entitic vol] 90 fL 80 - 100 fL [facility] Nucleated RBC/100 WBC (Bld) [Ratio] 0 % [facility] Platelets (Bld) [#/Vol] 553 10*3/uL High [facility] RBC (Bld) [#/Vol] 3.24 10*6/uL Low [facility] WBC (Bld) [#/Vol] 8.9 10*3/uL [facility] Erythrocyte distribution width (RBC) [Ratio] 21.2 % High 11.5-14.5 [facility] Comment on above: Performed By: #### 5 8410-2 ####FIDEL Hutchinson ([id number])[facility] ([facility])[address] [place] [address] Hematocrit (Bld) [Volume fraction] 29.1 % Low 36.0-46.0 [facility] Comment on above: Performed By: #### 5 8410-2 ####FIDEL Hutchinson ([id number])[facility] ([facility])[address] [place] [address] Hemoglobin (Bld) [Mass/Vol] 9.0 g/dL Low 12.0-16.0 [facility] Comment on above: Performed By: #### 5 8410-2 ####FIDEL Hutchinson ([id number])[facility] ([facility])[address] [place] [address] MCH (RBC) [Entitic mass] 27.8 pg Normal 26.0-34.0 [facility] Comment on above: Performed By: #### 5 8410-2 ####FIDEL Hutchinson ([id number])[facility] ([facility])[address] [place] [address] MCHC (RBC) [Mass/Vol] 30.9 g/dL Low 32.0-36.0 [facility] Comment on above: Performed By: #### 5 8410-2 ####FIDEL Hutchinosn ([id number])[facility] ([facility])[address] [place] [address] MCV (RBC) [Entitic vol] 90 fL Normal 80-[address] [facility] Comment on above: Performed By: #### 5 8410-2 ####FIDEL Hutchinson ([id number])[facility] ([facility])[address] [place] [address] Nucleated RBC/100 WBC (Bld) [Ratio] 0.0 /100 WBCs Normal 0.0-0.0 [facility] Comment on above: Performed By: #### 5 8410-2 ####FIDEL Hutchinson ([id number])[facility] ([facility])[address] [place] [address] Platelets (Bld) [#/Vol] 553 x10*3/uL High 150-450 [facility] Comment on above: Performed By: #### 5 8410-2 ####FIDEL Hutchinson ([id number])[facility] ([facility])[address] [place] [address] RBC (Bld) [#/Vol] 3.24 x10*6/uL Low 4.00-5.[address] [facility] Comment on above: Performed By: #### 5 8410-2 ####FIDEL MOOREDebbi Hutchinson ([id number])[facility] ([facility])[address] [place] [address] WBC (Bld) [#/Vol] 8.9 x10*3/uL Normal 4.4-11.3 [facility] Comment on above: Performed By: #### 5 8410-2 ####FIDELAUDRA Hutchinson ([id number])[facility] ([facility])[address] [place] [address] ProcalcitoninOrdered By: Mono Soria on 06-06-2024 Procalcitonin [Mass/Vol] 0.05 ng/mL NINF - 0.07 ng/mL [facility] Procalcitonin [Mass/Vol]Orde red By: Alok Soria on 06-06-2024 Interpretation and review of laboratory results Normal [facility] Procalcitonin (PCT) results measured serially can aid in decision-making for antibiotic discontinuation in patients with suspected or confirmed sepsis in conjunction with additional clinical information. Antibiotic discontinuation may be considered with a change in PCT of >80% from the peak result or when PCT falls below 0.50 ng/mL. Procalcitonin results should not be used in isolation but should be interpreted in conjunction with additional clinical and laboratory findings. Procalcitonin results should not be used to guide the initiation of antibiotic therapy. Falsely low PCT values in the presence of bacterial infection may occur in early infection, with atypical pathogens, localized infections, and subacute infectious endocarditis. Falsely elevated results outside of severe bacterial infection/sepsis may be seen in patients with renal failure or insufficiency, severe trauma or galaviz, recent major abdominal/cardiac surgery, acute multi-organ failure, rarely in patients with medullary thyroid carcinoma and rare neuroendocrine tumors, and non-specific interfering antibodies (heterophile antibodies, rheumatoid factor, human anti-mouse antibodies (HAMA), etc). Performance of the PCT test in pediatric patients (<18yo), women, immunocompromised patients, and patients on immunomodulatory medications has not been evaluated. [facility] Basic metabolic 2000 panelon 06-05-2024 Anion gap [Moles/Vol] 10 mmol/L 10 - 2 0 mmol/L [facility] Calcium [Mass/Vol] 8.5 mg/dL Low 8.6 - 10. 3 mg/dL [facility] Chloride [Moles/Vol] 102 mmol/L 98 - 10 7 mmol/L [facility] CO2 [Moles/Vol] 31 mmol/L 21 - 32 mmol/L [facility] Creatinine [Mass/Vol] 0.72 mg/dL 0.50 - 1.05 mg/dL [facility] eGFR - PINF [facility] Comment on above: Calculations of niurka mated GFR are performed using the 2020 CKD-EPI Study Refit equation without the race variable for the IDMS-Traceable creatinine methods. https://jasn.asnjournals.org/content/early/ASN.2020 908304 Glucose [Mass/Vol] 83 mg/dL 74 - 99 mg/dL [facility] Interpretation and review of laboratory results Abnormal [facility] Potassium [Moles/Vol] 4.4 mmol/L 3.5 - 5.3 mmol/L [facility] Sodium [Moles/Vol] 139 mmol/L 136 - 145 mmol/L [facility] Urea nitrogen [Mass/Vol] 10 mg/dL 6 - 23 mg/dL [facility] Anion gap [Moles/Vol] 10 mmol/L Normal 10-20 [facility] Comment on above: Performed By: #### 2 4321-2 ####FIDEL Hutchinson ([id number])[facility] ([facility])[address] [place] [address] Calcium [Mass/Vol] 8.5 mg/dL Low 8.6-10.3 [facility] Comment on above: Performed By: #### 2 4321-2 ####FIDEL Hutchinson ([id number])[facility] ([facility])[address] [place] [address] Chloride [Moles/Vol] 102 mmol/L Normal 98-[address] [facility] Comment on above: Performed By: #### 2 4321-2 ####FIDEL MOORES G ([id number])[facility] ([facility])[address] [place] [address] CO2 [Moles/Vol] 31 mmol/L Normal 21-32 [facility] Comment on above: Performed By: #### 2 4321-2 ####FIDEL PAINTERRENS G ([id number])[facility] ([facility])[address] [place] [address] Creatinine [Mass/Vol] 0.72 mg/dL Normal 0.50-1.05 [facility] Comment on above: Performed By: #### 2 4321-2 ####FIDEL Hutchinson ([id number])[facility] ([facility])[address] [place] [address] GFR/1.73 sq M.predicted MDRD (S/P/Bld) [Vol rate/Area] mL/min/{1.73_m2} Normal >60 [facility] Comment on above: Result Comment: Calc ulations of estimated GFR are performed using the 2020 CKD-EPI Study Refit equation without the race variable for the IDMS-Traceable creatinine methods. https://jasn.asnjournals.org/content/early//ASN.2020 545443 Performed By: #### 2 4321-2 ####FIDEL Hutchinson ([id number])[facility] ([facility])[address] [place] [address] Glucose [Mass/Vol] 83 mg/dL Normal 74-99 [facility] Comment on above: Performed By: #### 2 4321-2 ####FIDEL PAINTERRENS G ([id number])[facility] ([facility])[address] [place] [address] Potassium [Moles/Vol] 4.4 mmol/L Normal 3.5-5.3 [facility] Comment on above: Performed By: #### 2 4321-2 ####FIDEL PAINTERRENS G ([id number])[facility] ([facility])[address] [place] [address] Sodium [Moles/Vol] 139 mmol/L Normal 136-145 [facility] Comment on above: Performed By: #### 2 4321-2 ####FIDEL Hutchinson ([id number])[facility] ([facility])[address] [place] [address] Urea nitrogen [Mass/Vol] 10 mg/dL Normal 6-23 [facility] Comment on above: Performed By: #### 2 4321-2 ####FIDEL Hutchinson ([id number])[facility] ([facility])[address] [place] [address] CBC panel Auto (Bld)on 06-05 Erythrocyte distribution width (RBC) [Ratio] 21.9 % High 11.5 - 14.5 % [facility] Hematocrit (Bld) [Volume fraction] 28.7 % Low 36.0 - 46.0 % [facility] Hemoglobin (Bld) [Mass/Vol] 8.6 g/dL Low 12.0 - 16.0 g/dL [facility] Interpretation and review of laboratory results Abnormal [facility] MCH (RBC) [Entitic mass] 27.1 pg 26.0 - 34.0 pg [facility] MCHC (RBC) [Mass/Vol] 30 g/dL Low 32.0 - 36.0 g/dL [facility] MCV (RBC) [Entitic vol] 91 fL 80 - 100 fL [facility] Nucleated RBC/100 WBC (Bld) [Ratio] 0 % [facility] Platelets (Bld) [#/Vol] 515 10*3/uL High [facility] RBC (Bld) [#/Vol] 3.17 10*6/uL Low [facility] WBC (Bld) [#/Vol] 9.2 10*3/uL [facility] Erythrocyte distribution width (RBC) [Ratio] 21.9 % High 11.5-14.5 [facility] Comment on above: Performed By: #### 5 8410-2 ####FIDEL Hutchinson ([id number])[facility] ([facility])[address] [place] [address] Hematocrit (Bld) [Volume fraction] 28.7 % Low 36.0-46.0 [facility] Comment on above: Performed By: #### 5 8410-2 ####FIDEL Hutchinson ([id number])[facility] ([facility])[address] [place] [address] Hemoglobin (Bld) [Mass/Vol] 8.6 g/dL Low 12.0-16.0 [facility] Comment on above: Performed By: #### 5 8410-2 ####FIDEL Hutchinson ([id number])[facility] ([facility])[address] [place] [address] MCH (RBC) [Entitic mass] 27.1 pg Normal 26.0-34.0 [facility] Comment on above: Performed By: #### 5 8410-2 ####FIDEL Hutchinson ([id number])[facility] ([facility])[address] [place] [address] MCHC (RBC) [Mass/Vol] 30.0 g/dL Low 32.0-36.0 [facility] Comment on above: Performed By: #### 5 8410-2 ####FIDEL Hutchinson ([id number])[facility] ([facility])[address] [place] [address] MCV (RBC) [Entitic vol] 91 fL Normal 80-[address] [facility] Comment on above: Performed By: #### 5 8410-2 ####FIDEL Hutchinson ([id number])[facility] ([facility])[address] [place] [address] Nucleated RBC/100 WBC (Bld) [Ratio] 0.0 /100 WBCs Normal 0.0-0.0 [facility] Comment on above: Performed By: #### 5 8410-2 ####FIDEL Hutchinson ([id number])[facility] ([facility])[address] [place] [address] Platelets (Bld) [#/Vol] 515 x10*3/uL High 150-450 [facility] Comment on above: Performed By: #### 5 8410-2 ####FIDEL MILLA G ([id number])[facility] ([facility])[address] [place] [address] RBC (Bld) [#/Vol] 3.17 x10*6/uL Low 4.00-5.[address] [facility] Comment on above: Performed By: #### 5 8410-2 ####FIDEL MILLA G ([id number])[facility] ([facility])[address] [place] [address] WBC (Bld) [#/Vol] 9.2 x10*3/uL Normal 4.4-11.3 [facility] Comment on above: Performed By: #### 5 8410-2 ####FIDEL PAINTERRENS G ([id number])[facility] ([facility])[address] [place] [address] Natriuretic peptide B [Mass/ Vol]on 06-05-2024 Interpretation and review of laboratory results Normal [facility] Natriuretic peptide B (Bld) [Mass/Vol] 94 pg/mL 0 - 99 pg/mL [facility] <100 pg/mL - Heart failure unlikely 100-299 pg/mL - Intermediate probability of acute heart failure exacerbation. Correlate with clinical context and patient history. >=300 pg/mL - Heart Failure likely. Correlate with clinical context and patient history. BNP testing is performed using different testing methodology at [facility] than at other [facility]. Direct result comparisons should only be made within the same method. [facility] Natriuretic peptide B (Bld) [Mass/Vol] 94 pg/mL Normal 0-99 [facility] Comment on above: Order Comment: <100 pg/mL - Heart failure [id number] pg/mL - Intermediate probability of acute heart failure exacerbation. Correlate with clinical context and patient history. >=300 pg/mL - Heart Failure likely. Correlate with clinical context and patient history.BNP testing is performed using different testing methodology at [facility] than at other [facility]. Direct result comparisons should only be made within the same method. Performed By: #### 3 0934-4 ####FIDEL Hutchinson ([id number])[facility] ([facility])[address] [place] [address] Procalcitoninon 06-05-2024 Procalcitonin [Mass/Vol] 0.05 ng/mL Normal <=0.07 [facility] Comment on above: Order Comment: Proca lcitonin (PCT) results measured serially canaid in decision-making for antibiotic discontinuation inpatients with suspected or confirmed sepsis in conjunctionwith additional clinical information. Antibioticdiscontinuation may be considered with a change in PCT of>80% from the peak result or when PCT falls below 0.50 ng/mL.Procalcitonin results should not be used in isolation butshould be interpreted in conjunction with additional clinicaland laboratory findings. Procalcitonin results should not beused to guide the initiation of antibiotic therapy.Falsely low PCT values in the presence of bacterial infectionmay occur in early infection, with atypical pathogens,localized infections, and subacute infectious endocarditis.Falsely elevated results outside of severe bacterialinfection/sepsis may be seen in patients with renal failureor insufficiency, severe trauma or galaviz, recent majorabdominal/cardiac surgery, acute multi-organ failure, rarelyin patients with medullary thyroid carcinoma and rareneuroendocrine tumors, and non-specific interfering antibodies(heterophile antibodies, rheumatoid factor, human anti-mouseantibodies (HAMA), etc).Performance of the PCT test in pediatric patients (<18yo), women, immunocompromised patients, and patients onimmunomodulatory medications has not been evaluated. Performed By: #### 3 3959-8 ####JOSE Louise ([id number])[facility] ([facility])[address] [place] [address] Bacteria identifiedon 2024 Bacteria identified Cx Nom (Bld) Test: Blood Culture Specimen Source: Peripheral Venipuncture Specimen Type: Blood culture Specimen Date: 06/04/2024 185 Result Date: 06/09/2024 1100 Result Status: Final result Abnormal: No Resulting Lab: [facility] [id number] [place] [address] CULTURE No growth at 4 days - FINAL REPORT Normal [facility] Comment on above: Performed By: #### 6 00-7 ####JOSE Louise ([id number])[facility] ([facility])[id number] [place] [address] CBC W Auto Differential pane l (Bld)on 06-04-2024 Basophils (Bld) [#/Vol] 0.07 10*3/uL [facility] Comment on above: Manual smear reveals less than 10 % bands and no immature granulocytes Basophils/100 WBC (Bld) 0.5 % 0.0 - 2.0 % [facility] Eosinophils (Bld) [#/Vol] 0.1 10*3/uL [facility] Eosinophils/100 WBC (Bld) 0.7 % 0.0 - 6.0 % [facility] Erythrocyte distribution width (RBC) [Ratio] 22.5 % High 11.5 - 14.5 % [facility] Hematocrit (Bld) [Volume fraction] 32.1 % Low 36.0 - 46.0 % [facility] Hemoglobin (Bld) [Mass/Vol] 9.4 g/dL Low 12.0 - 16.0 g/dL [facility] Immature granulocytes (Bld) [#/Vol] 0.06 10*3/uL [facility] Immature granulocytes/100 WBC (Bld) 0.4 % 0.0 - 0.9 % [facility] Comment on above: Immature Granulocyte Count (IG) includes promyelocytes, myelocytes and metamyelocytes but does not include bands. Percent differential counts (%) should be interpreted in the context of the absolute cell counts (cells/UL). Interpretation and review of laboratory results Abnormal [facility] Lymphocytes (Bld) [#/Vol] 1.87 10*3/uL [facility] Lymphocytes/100 WBC (Bld) 12.7 % 13.0 - 44.0 % [facility] MCH (RBC) [Entitic mass] 27 pg 26.0 - 34.0 pg [facility] MCHC (RBC) [Mass/Vol] 29.3 g/dL Low 32.0 - 36.0 g/dL [facility] MCV (RBC) [Entitic vol] 92 fL 80 - 100 fL [facility] Monocytes (Bld) [#/Vol] 1.31 10*3/uL High [facility] Monocytes/100 WBC (Bld) 8.9 % 2.0 - 10.0 % [facility] Neutrophils (Bld) [#/Vol] 11.32 10*3/uL [facility] Comment on above: Percent differential counts (%) should be interpreted in the context of the absolute cell counts (cells/uL). Neutrophils/100 WBC (Bld) 76.8 % 40.0 - 80.0 % [facility] Nucleated RBC/100 WBC (Bld) [Ratio] 0 % [facility] Platelets (Bld) [#/Vol] 605 10*3/uL High [facility] RBC (Bld) [#/Vol] 3.48 10*6/uL Low [facility] WBC (Bld) [#/Vol] 14.7 10*3/uL High [facility] Basophils (Bld) [#/Vol] 0.07 x10*3/uL Normal 0.00-0.10 [facility] Comment on above: Result Comment: Manu al smear reveals less than 10 % bands and no immature granulocytes Performed By: #### 5 7021-8 #### FIDEL MOORES G ([id number]) [facility] ([facility]) [address] [place] [address] Basophils/100 WBC (Bld) 0.5 % Normal 0.0-2.[address] [facility] Comment on above: Performed By: #### 5 7021-8 #### FIDEL MILLA G ([id number]) [facility] ([facility]) [address] [place] [address] Eosinophils (Bld) [#/Vol] 0.10 x10*3/uL Normal 0.00-0.70 [facility] Comment on above: Performed By: #### 5 7021-8 #### FIDEL MILLA G ([id number]) [facility] ([facility]) [address] [place] [address] Eosinophils/100 WBC (Bld) 0.7 % Normal 0.0-6.0 [facility] Comment on above: Performed By: #### 5 7021-8 #### FIDEL PAINTERRENDebbi Hutchinson ([id number]) [facility] ([facility]) [address] [place] [address] Erythrocyte distribution width (RBC) [Ratio] 22.5 % High 11.5-14.5 [facility] Comment on above: Performed By: #### 5 7021-8 #### FIDEL MOORES G ([id number]) [facility] ([facility]) [address] [place] [address] Hematocrit (Bld) [Volume fraction] 32.1 % Low 36.0-46.0 [facility] Comment on above: Performed By: #### 5 7021-8 #### FIDEL Hutchinson ([id number]) [facility] ([facility]) [address] [place] [address] Hemoglobin (Bld) [Mass/Vol] 9.4 g/dL Low 12.0-16.0 [facility] Comment on above: Performed By: #### 5 7021-8 #### FIDEL PAINTERRENS G ([id number]) [facility] ([facility]) [address] [place] [address] Immature granulocytes (Bld) [#/Vol] 0.06 x10*3/uL Normal 0.00-0.70 [facility] Comment on above: Performed By: #### 5 7021-8 #### FIDEL MILLA G ([id number]) [facility] ([facility]) [address] [place] [address] Immature granulocytes/100 WBC (Bld) 0.4 % Normal 0.0-0.9 [facility] Comment on above: Result Comment: Shilpi ture Granulocyte Count (IG) includes promyelocytes, myelocytes and metamyelocytes but does not include bands. Percent differential counts (%) should be interpreted in the context of the absolute cell counts (cells/UL). Performed By: #### 5 7021-8 #### FIDEL Hutchinson ([id number]) [facility] ([facility]) [address] [place] [address] Lymphocytes (Bld) [#/Vol] 1.87 x10*3/uL Normal 1.20-4.80 [facility] Comment on above: Performed By: #### 5 7021-8 #### FIDEL Hutchinson ([id number]) [facility] ([facility]) [address] [place] [address] Lymphocytes/100 WBC (Bld) 12.7 % Normal 13.0-44.0 [facility] Comment on above: Performed By: #### 5 7021-8 #### FIDEL Hutchinson ([id number]) [facility] ([facility]) [address] [place] [address] MCH (RBC) [Entitic mass] 27.0 pg Normal 26.0-34.0 [facility] Comment on above: Performed By: #### 5 7021-8 #### FIDEL Hutchinson ([id number]) [facility] ([facility]) [address] [place] [address] MCHC (RBC) [Mass/Vol] 29.3 g/dL Low 32.0-36.0 [facility] Comment on above: Performed By: #### 5 7021-8 #### FIDEL Hutchinson ([id number]) [facility] ([facility]) [address] [place] [address] MCV (RBC) [Entitic vol] 92 fL Normal 80-[address] [facility] Comment on above: Performed By: #### 5 7021-8 #### FIDEL Hutchinson ([id number]) [facility] ([facility]) [address] [place] [address] Monocytes (Bld) [#/Vol] 1.31 x10*3/uL High 0.10-1.00 [facility] Comment on above: Performed By: #### 5 7021-8 #### FIDEL Hutchinson ([id number]) [facility] ([facility]) [address] [place] [address] Monocytes/100 WBC (Bld) 8.9 % Normal 2.0-10.[address] [facility] Comment on above: Performed By: #### 5 7021-8 #### FIDEL PAINTERRENS G ([id number]) [facility] ([facility]) [address] [place] [address] Neutrophils (Bld) [#/Vol] 11.32 x10*3/uL High 1.20-7.70 [facility] Comment on above: Result Comment: Perc ent differential counts (%) should be interpreted in the context of the absolute cell counts (cells/uL). Performed By: #### 5 7021-8 #### FIDEL PAINTERRENS G ([id number]) [facility] ([facility]) [address] [place] [address] Neutrophils/100 WBC (Bld) 76.8 % Normal 40.0-80.0 [facility] Comment on above: Performed By: #### 5 7021-8 #### FIDEL PAINTERRENS G ([id number]) [facility] ([facility]) [address] [place] [address] Nucleated RBC/100 WBC (Bld) [Ratio] 0.0 /100 WBCs Normal 0.0-0.0 [facility] Comment on above: Performed By: #### 5 7021-8 #### FIDEL PAINTERRENS G ([id number]) [facility] ([facility]) [address] [place] [address] Platelets (Bld) [#/Vol] 605 x10*3/uL High 150-450 [facility] Comment on above: Performed By: #### 5 7021-8 #### FIDEL PAINTERRENS G ([id number]) [facility] ([facility]) [address] [place] [address] RBC (Bld) [#/Vol] 3.48 x10*6/uL Low 4.00-5.[address] [facility] Comment on above: Performed By: #### 5 7021-8 #### FIDEL Hutchinson ([id number]) [facility] ([facility]) [address] [place] [address] WBC (Bld) [#/Vol] 14.7 x10*3/uL High 4.4-11.[address] [facility] Comment on above: Performed By: #### 5 7021-8 #### FIDELCHERYL LOYOLA Evangelina ([id number]) [facility] ([facility]) [address] [place] [address] CT CERVICAL SPINE WO IV CONT Flynn 06-04-2024 CT CERVICAL SPINE WO IV CONTRAST Interpreted By: Hemanth Quezada, STUDY: CT HEAD W/O CONTRAST TRAUMA PROTOCOL; CT CERVICAL SPINE WO IV CONTRAST; 06/04/2024 4:04 pm INDICATION: Signs/Symptoms:Fall on thinners ACCESSION NUMBER(S): [id number]; [id number] ORDERING CLINICIAN: RANDAL SYKES TECHNIQUE: Axial noncontrast CT images of head with coronal and sagittal reconstructed images. Axial noncontrast CT images of the cervical spine with coronal and sagittal reconstructed images. FINDINGS: CT HEAD: BRAIN PARENCHYMA: No evidence of acute intraparenchymal hemorrhage or parenchymal evidence of acute large territory ischemic infarct. No mass-effect, midline shift or effacement of cerebral sulci. Leiva-white matter distinction is preserved. Global volume loss and chronic small vessel ischemic change VENTRICLES and EXTRA-AXIAL SPACES: No acute extra-axial or intraventricular hemorrhage. Ventricles and sulci are age-concordant. PARANASAL SINUSES/MASTOIDS: Mild puvi-syhehnf-cmma-right mucosal thickening. CALVARIUM/ORBITS: No skull fracture. The orbits and globes are intact to the extent visualized. CT CERVICAL SPINE: Demineralization of the bones. PREVERTEBRAL SOFT TISSUES: Within normal limits. CRANIOCERVICAL JUNCTION: Intact. ALIGNMENT: No traumatic malalignment or traumatic facet widening. VERTEBRAE: No acute fracture. Vertebral body heights are maintained. Scattered mild multilevel degenerative disc disease. Vascular calcification No high-grade central canal or foraminal stenosis IMPRESSION: CT HEAD: No acute intracranial abnormality or calvarial fracture. Senescent changes CT CERVICAL SPINE: No acute fracture or traumatic malalignment of the cervical spine. Demineralization and mild degenerative changes. Signed by: Hemanth Quezada 06/04/2024 4:24 PM Dictation workstation: [id number] [facility] CT HEAD W/O CONTRAST TRAUMA PROTOCOLon 06-04-2024 CT HEAD W/O CONTRAST TRAUMA PROTOCOL Interpreted By: Hemanth Quezada, STUDY: CT HEAD W/O CONTRAST TRAUMA PROTOCOL; CT CERVICAL SPINE WO IV CONTRAST; 06/04/2024 4:04 pm INDICATION: Signs/Symptoms:Fall on thinners ACCESSION NUMBER(S): [id number]; [id number] ORDERING CLINICIAN: RANDAL SYKES TECHNIQUE: Axial noncontrast CT images of head with coronal and sagittal reconstructed images. Axial noncontrast CT images of the cervical spine with coronal and sagittal reconstructed images. FINDINGS: CT HEAD: BRAIN PARENCHYMA: No evidence of acute intraparenchymal hemorrhage or parenchymal evidence of acute large territory ischemic infarct. No mass-effect, midline shift or effacement of cerebral sulci. Leiva-white matter distinction is preserved. Global volume loss and chronic small vessel ischemic change VENTRICLES and EXTRA-AXIAL SPACES: No acute extra-axial or intraventricular hemorrhage. Ventricles and sulci are age-concordant. PARANASAL SINUSES/MASTOIDS: Mild xxpj-oesmcpb-wbdt-right mucosal thickening. CALVARIUM/ORBITS: No skull fracture. The orbits and globes are intact to the extent visualized. CT CERVICAL SPINE: Demineralization of the bones. PREVERTEBRAL SOFT TISSUES: Within normal limits. CRANIOCERVICAL JUNCTION: Intact. ALIGNMENT: No traumatic malalignment or traumatic facet widening. VERTEBRAE: No acute fracture. Vertebral body heights are maintained. Scattered mild multilevel degenerative disc disease. Vascular calcification No high-grade central canal or foraminal stenosis IMPRESSION: CT HEAD: No acute intracranial abnormality or calvarial fracture. Senescent changes CT CERVICAL SPINE: No acute fracture or traumatic malalignment of the cervical spine. Demineralization and mild degenerative changes. Signed by: Hemanth Quezada 06/04/2024 4:24 PM Dictation workstation: [id number] [facility] Comprehensive metabolic 2000 panelon 06-04-2024 Albumin BCP dye [Mass/Vol] 3.6 g/dL 3.4 - 5.0 g/dL [facility] ALP [Catalytic activity/Vol] 67 U/L 33 - 136 U/L [facility] ALT With P-5'-P [Catalytic activity/Vol] 9 U/L 7 - 45 U/L [facility] Comment on above: Patients treated wit h Sulfasalazine may generate falsely decreased results for ALT. Anion gap [Moles/Vol] 12 mmol/L 10 - 2 0 mmol/L [facility] AST With P-5'-P [Catalytic activity/Vol] 9 U/L 9 - 39 U/L [facility] Bilirubin [Mass/Vol] 0.2 mg/dL 0.0 - 1 .2 mg/dL [facility] Calcium [Mass/Vol] 9.5 mg/dL 8.6 - 10. 3 mg/dL [facility] Chloride [Moles/Vol] 99 mmol/L 98 - 10 7 mmol/L [facility] CO2 [Moles/Vol] 31 mmol/L 21 - 32 mmol/L [facility] Creatinine [Mass/Vol] 0.79 mg/dL 0.50 - 1.05 mg/dL [facility] GFR/1.73 sq M.predicted among non-blacks MDRD (S/P/Bld) [Vol rate/Area] 81 mL/min/{1.73_m2} - PINF [facility] Comment on above: Calculations of niurka mated GFR are performed using the 2020 CKD-EPI Study Refit equation without the race variable for the IDMS-Traceable creatinine methods. https://jasn.asnjournals.org/content//ASN.2020 661965 Glucose [Mass/Vol] 91 mg/dL 74 - 99 mg/dL [facility] Interpretation and review of laboratory results Normal [facility] Potassium [Moles/Vol] 3.8 mmol/L 3.5 - 5.3 mmol/L [facility] Protein [Mass/Vol] 7 g/dL 6.4 - 8.2 g/dL [facility] Sodium [Moles/Vol] 138 mmol/L 136 - 145 mmol/L [facility] Urea nitrogen [Mass/Vol] 13 mg/dL 6 - 23 mg/dL [facility] Albumin BCP dye [Mass/Vol] 3.6 g/dL Normal 3.4-5.0 [facility] Comment on above: Performed By: #### 2 4323-8 #### FIDEL Hutchinson ([id number]) [facility] ([facility]) [address] [place] [address] ALP [Catalytic activity/Vol] 67 U/L Normal 33-136 [facility] Comment on above: Performed By: #### 2 4323-8 #### FIDEL Hutchinson ([id number]) [facility] ([facility]) [address] [place] [address] ALT With P-5'-P [Catalytic activity/Vol] 9 U/L Normal 7-45 [facility] Comment on above: Result Comment: Kathie ents treated with Sulfasalazine may generate falsely decreased results for ALT. Performed By: #### 2 432-8 #### FIDEL Hutchinson ([id number]) [facility] ([facility]) [address] [place] [address] Anion gap [Moles/Vol] 12 mmol/L Normal 10-20 [facility] Comment on above: Performed By: #### 2 432-8 #### FIDEL Hutchinson ([id number]) [facility] ([facility]) [address] [place] [address] AST With P-5'-P [Catalytic activity/Vol] 9 U/L Normal 9-39 [facility] Comment on above: Performed By: #### 2 4323-8 #### FIDEL Hutchinson ([id number]) [facility] ([facility]) [address] [place] [address] Bilirubin [Mass/Vol] 0.2 mg/dL Normal 0.0-1.[address] [facility] Comment on above: Performed By: #### 2 4323-8 #### FIDEL Hutchinson ([id number]) [facility] ([facility]) [address] [place] [address] Calcium [Mass/Vol] 9.5 mg/dL Normal 8.6-10.3 [facility] Comment on above: Performed By: #### 2 4323-8 #### FIDEL MOORES G ([id number]) [facility] ([facility]) [address] [place] [address] Chloride [Moles/Vol] 99 mmol/L Normal 98-[address] [facility] Comment on above: Performed By: #### 2 4323-8 #### FIDEL PAINTERRENS G ([id number]) [facility] ([facility]) [address] [place] [address] CO2 [Moles/Vol] 31 mmol/L Normal 21-32 [facility] Comment on above: Performed By: #### 2 4323-8 #### FIDEL PAINTERRENS G ([id number]) [facility] ([facility]) [address] [place] [address] Creatinine [Mass/Vol] 0.79 mg/dL Normal 0.50-1.05 [facility] Comment on above: Performed By: #### 2 4323-8 #### FIDEL PAINTERRENS G ([id number]) [facility] ([facility]) [address] [place] [address] Glomerular filtration rate/1.73 sq M.predicted 81 mL/min/1.73m*2 Normal >60 [facility] Comment on above: Result Comment: Calc ulations of estimated GFR are performed using the 2020 CKD-EPI Study Refit equation without the race variable for the IDMS-Traceable creatinine methods. https://jasn.asnjournals.org/content//ASN.2020 919785 Performed By: #### 2 4323-8 #### FIDEL PAINTERRENS G ([id number]) [facility] ([facility]) [address] [place] [address] Glucose [Mass/Vol] 91 mg/dL Normal 74-99 [facility] Comment on above: Performed By: #### 2 4323-8 #### FIDEL PAINTERRENS G ([id number]) [facility] ([facility]) [address] [place] [address] Potassium [Moles/Vol] 3.8 mmol/L Normal 3.5-5.3 [facility] Comment on above: Performed By: #### 2 4323-8 #### FIDEL Hutchinson ([id number]) [facility] ([facility]) [address] [place] [address] Protein [Mass/Vol] 7.0 g/dL Normal 6.4-8.2 [facility] Comment on above: Performed By: #### 2 4323-8 #### FIDEL PAINTERRENS G ([id number]) [facility] ([facility]) [address] [place] [address] Sodium [Moles/Vol] 138 mmol/L Normal 136-145 [facility] Comment on above: Performed By: #### 2 4323-8 #### FIDEL Hutchinson ([id number]) [facility] ([facility]) [address] [place] [address] Urea nitrogen [Mass/Vol] 13 mg/dL Normal 6-23 [facility] Comment on above: Performed By: #### 2 4323-8 #### FIDEL MOORES G ([id number]) [facility] ([facility]) [address] [place] [address] ECG 12-LEADon 06-04-2024 ECG 12-LEAD Ventricular Rate 90 Atrial Rate 90 P-R Interval 306 QRS Duration 92 Q-T Interval 378 QTC Calculation(Bazett) 462 P [place] 56 R [place] 54 T [place] 81 QRS Count 14 Q Onset 214 P Onset 135 P Offset 174 T Offset 403 QTC Fredericia 432 Diagnosis AV dual-paced rhythm with prolonged AV conduction with occasional Premature ventricular complexes Abnormal ECG No previous ECGs available See ED provider note for full interpretation and clinical correlation Confirmed by Gabbie Willson ([id number]) on 06/23/2024 11:57:07 AM Normal [facility] FLUAV and FLUBV RNA FLEX+prob e Nom (Unsp spec)on 06-04-2024 FLUAV RNA FLEX+probe Ql (Resp) Not detected Not Detected [facility] FLUBV RNA FLEX+probe Ql (Resp) Not detected Not Detected [facility] This assay is an in vitro diagnostic multiplex nucleic acid amplification test for the detection and discrimination of Influenza A & B from nasopharyngeal specimens, and has been validated for use at [facility]. Negative results do not preclude Influenza A/B infections, and should not be used as the sole basis for diagnosis, treatment, or other management decisions. If Influenza A/B and RSV PCR results are negative, testing for Parainfluenza virus, Adenovirus and Metapneumovirus is routinely performed for [facility] [place] and intensive care inpatients, and is available on other patients by placing an add-on request. [facility] FLUAV RNA FLEX+probe Ql (Resp) Not detected Normal Not Detected [facility] Comment on above: Order Comment: This assay is an in vitro diagnostic multiplex nucleic acid amplification test for the detection and discrimination of Influenza A & B from nasopharyngeal specimens, and has been validated for use at [facility]. Negative results do not preclude Influenza A/B infections, and should not be used as the sole basis for diagnosis, treatment, or other management decisions. If Influenza A/B and RSV PCR results are negative, testing for Parainfluenza virus, Adenovirus and Metapneumovirus is routinely performed for [facility] [place] and intensive care inpatients, and is available on other patients by placing an add-on request. Performed By: #### 4 8509-4 #### FIDEL Hutchinson ([id number]) [facility] ([facility]) [address] [place] [address] FLUBV RNA FLEX+probe Ql (Resp) Not detected Normal Not Detected [facility] Comment on above: Order Comment: This assay is an in vitro diagnostic multiplex nucleic acid amplification test for the detection and discrimination of Influenza A & B from nasopharyngeal specimens, and has been validated for use at [facility]. Negative results do not preclude Influenza A/B infections, and should not be used as the sole basis for diagnosis, treatment, or other management decisions. If Influenza A/B and RSV PCR results are negative, testing for Parainfluenza virus, Adenovirus and Metapneumovirus is routinely performed for [facility] [place] and intensive care inpatients, and is available on other patients by placing an add-on request. Performed By: #### 4 8509-4 #### FIDEL Hutchinson ([id number]) [facility] ([facility]) [address] [place] [address] Gas panel (BldV)on 5 Anion gap 4 (BldV) [Moles/Vol] 7 mmol/L Low 10.0 - 25.0 mmol/L [facility] Base excess Calc (BldV) [Moles/Vol] 5.7 mmol/L High -2.0 - 3.0 mmol/L [facility] Calcium.ionized (BldV) [Moles/Vol] 1.25 mmol/L 1.10 - 1.33 mmol/L [facility] Chloride (BldV) [Moles/Vol] 104 mmol/L 98 - 107 mmol/L [facility] CO2 (BldV) [Partial pressure] 52 mm[Hg] High [facility] Glucose [Mass/Vol] 112 mg/dL High 74 - 99 mg/dL [facility] HCO3 (Bld) [Moles/Vol] 31.5 mmol/L High 22.0 - 26.0 mmol/L [facility] Hematocrit Est (Bld) [Volume fraction] 26 % Low 36.0 - 46.0 % [facility] Hemoglobin (Bld) [Mass/Vol] 8.7 g/dL Low 12.0 - 16.0 g/dL [facility] Inhaled oxygen concentration 32 % [facility] Interpretation and review of laboratory results Abnormal [facility] Lactate (BldV) [Moles/Vol] 0.9 mmol/L 0.4 - 2.0 mmol/L [facility] Oxygen (BldV) [Partial pressure] 23 mm[Hg] Low [facility] Oxygen saturation in Venous blood 26 % Low 45 - 75 % [facility] Oxyhemoglobin (BldV) [Mass fraction] 25.7 % Low 45.0 - 75.0 % [facility] pH (BldV) 7.39 [pH] 7.33 - 7.43 pH [facility] Potassium (BldV) [Moles/Vol] 3.8 mmol/L 3.5 - 5.3 mmol/L [facility] Sodium (BldV) [Moles/Vol] 139 mmol/L 136 - 145 mmol/L [facility] Anion gap 4 (BldV) [Moles/Vol] 7.0 mmol/L Low 10.0-25.0 [facility] Comment on above: Performed By: #### 2 4339-4 #### FIDEL Hutchinson ([id number]) [facility] ([facility]) [address] [place] [address] Base excess Calc (BldV) [Moles/Vol] 5.7 mmol/L High -2.0-3.0 [facility] Comment on above: Performed By: #### 2 4339-4 #### FIDEL Hutchinson ([id number]) [facility] ([facility]) [address] [place] [address] Calcium.ionized (BldV) [Moles/Vol] 1.25 mmol/L Normal 1.10-1.33 [facility] Comment on above: Performed By: #### 2 4339-4 #### FIDEL Hutchinson ([id number]) [facility] ([facility]) [address] [place] [address] Chloride (BldV) [Moles/Vol] 104 mmol/L Normal 98-107 [facility] Comment on above: Performed By: #### 2 4339-4 #### FIDEL Hutchinson ([id number]) [facility] ([facility]) [address] [place] [address] CO2 (BldV) [Partial pressure] 52 mm Hg High 41-51 [facility] Comment on above: Performed By: #### 2 4339-4 #### FIDEL Hutchinson ([id number]) [facility] ([facility]) [address] [place] [address] Glucose [Mass/Vol] 112 mg/dL High 74-99 [facility] Comment on above: Performed By: #### 2 4339-4 #### FIDEL Hutchinson ([id number]) [facility] ([facility]) [address] [place] [address] HCO3 (Bld) [Moles/Vol] 31.5 mmol/L High 22.0-26.[address] [facility] Comment on above: Performed By: #### 2 4339-4 #### FIDEL Hutchinson ([id number]) [facility] ([facility]) [address] [place] [address] Hematocrit Est (Bld) [Volume fraction] 26.0 % Low 36.0-46.0 [facility] Comment on above: Performed By: #### 2 4339-4 #### FIDEL Hutchinson ([id number]) [facility] ([facility]) [address] [place] [address] Hemoglobin (Bld) [Mass/Vol] 8.7 g/dL Low 12.0-16.0 [facility] Comment on above: Performed By: #### 2 4339-4 #### FIDEL Hutchinson ([id number]) [facility] ([facility]) [address] [place] [address] Inhaled oxygen concentration 32 % Normal [facility] Comment on above: Performed By: #### 2 4339-4 #### FIDEL Hutchinson ([id number]) [facility] ([facility]) [address] [place] [address] Lactate (BldV) [Moles/Vol] 0.9 mmol/L Normal 0.4-2.0 [facility] Comment on above: Performed By: #### 2 4339-4 #### FIDEL Hutchinson ([id number]) [facility] ([facility]) [address] [place] [address] Oxygen (BldV) [Partial pressure] 23 mm Hg Low 35-45 [facility] Comment on above: Performed By: #### 2 4339-4 #### FIDEL Hutchinson ([id number]) [facility] ([facility]) [address] [place] [address] Oxygen saturation in Venous blood 26 % Low 45-75 [facility] Comment on above: Performed By: #### 2 4339-4 #### FIDEL Hutchinson ([id number]) [facility] ([facility]) [address] [place] [address] Oxyhemoglobin (BldV) [Mass fraction] 25.7 % Low 45.0-75.0 [facility] Comment on above: Performed By: #### 2 4339-4 #### FIDEL Hutchinson ([id number]) [facility] ([facility]) [address] [place] [address] pH (BldV) 7.39 [pH] Normal 7.33-7.43 [facility] Comment on above: Performed By: #### 2 4339-4 #### FIDEL Hutchinson ([id number]) [facility] ([facility]) [address] [place] [address] Potassium (BldV) [Moles/Vol] 3.8 mmol/L Normal 3.5-5.3 [facility] Comment on above: Performed By: #### 2 4339-4 #### FIDEL Hutchinson ([id number]) [facility] ([facility]) [address] [place] [address] Sodium (BldV) [Moles/Vol] 139 mmol/L Normal 136-145 [facility] Comment on above: Performed By: #### 2 4339-4 #### FIDEL PAINTERRENS G ([id number]) [facility] ([facility]) [address] [place] [address] MRSA DNA FLEX+probe Ql (Nose) on 06-04-2024 Interpretation and review of laboratory results Normal [facility] MRSA DNA FLEX+probe Ql (Unsp spec) Not detected Not Detected [facility] This assay is an FDA-approved in vitro diagnostic nucleic acid amplification test for the detection of methicillin-resistant Staphylococcus aureus (MRSA) DNA directly from nasal swabs in patients at risk for nasal colonization. MRSA NxG is intended to aid in the prevention and control of MRSA infections in healthcare settings. This assay is NOT intended to diagnose, guide, or monitor treatment for MRSA infections, or provide results of susceptibility to methicillin. A negative result does not preclude MRSA nasal colonization. Test performance has not been evaluated in patients less than two years of age. [facility] No Panel Informationon 06-04 Interpretation and review of laboratory results Normal [facility] Radiology Study observation (narrative) [facility] Work Phone: [facility] CT HEAD: No acute intracranial abnormality or calvarial fracture. Senescent changes CT CERVICAL SPINE: No acute fracture or traumatic malalignment of the cervical spine. Demineralization and mild degenerative changes. Signed by: Hemanth Quezada 06/04/2024 4:24 PM Dictation workstation: [id number] MMODAL Interpreted By: Hemanth Quezada, STUDY: CT HEAD W/O CONTRAST TRAUMA PROTOCOL; CT CERVICAL SPINE WO IV CONTRAST; 06/04/2024 4:04 pm INDICATION: Signs/Symptoms:Fall on thinners ACCESSION NUMBER(S): [id number]; [id number] ORDERING CLINICIAN: RANDAL SYKES TECHNIQUE: Axial noncontrast CT images of head with coronal and sagittal reconstructed images. Axial noncontrast CT images of the cervical spine with coronal and sagittal reconstructed images. FINDINGS: CT HEAD: BRAIN PARENCHYMA: No evidence of acute intraparenchymal hemorrhage or parenchymal evidence of acute large territory ischemic infarct. No mass-effect, midline shift or effacement of cerebral sulci. Leiva-white matter distinction is preserved. Global volume loss and chronic small vessel ischemic change VENTRICLES and EXTRA-AXIAL SPACES: No acute extra-axial or intraventricular hemorrhage. Ventricles and sulci are age-concordant. PARANASAL SINUSES/MASTOIDS: Mild eqao-rvgnjtu-yudr-right mucosal thickening. CALVARIUM/ORBITS: No skull fracture. The orbits and globes are intact to the extent visualized. CT CERVICAL SPINE: Demineralization of the bones. PREVERTEBRAL SOFT TISSUES: Within normal limits. CRANIOCERVICAL JUNCTION: Intact. ALIGNMENT: No traumatic malalignment or traumatic facet widening. VERTEBRAE: No acute fracture. Vertebral body heights are maintained. Scattered mild multilevel degenerative disc disease. Vascular calcification No high-grade central canal or foraminal stenosis MMODAL Hemanth Quezada MD - 06/04/2024 Interpreted By: Hemanth Quezada, STUDY: CT HEAD W/O CONTRAST TRAUMA PROTOCOL; CT CERVICAL SPINE WO IV CONTRAST; 06/04/2024 4:04 pm INDICATION: Signs/Symptoms:Fall on thinners ACCESSION NUMBER(S): [id number]; [id number] ORDERING CLINICIAN: RANDAL SYKES TECHNIQUE: Axial noncontrast CT images of head with coronal and sagittal reconstructed images. Axial noncontrast CT images of the cervical spine with coronal and sagittal reconstructed images. FINDINGS: CT HEAD: BRAIN PARENCHYMA: No evidence of acute intraparenchymal hemorrhage or parenchymal evidence of acute large territory ischemic infarct. No mass-effect, midline shift or effacement of cerebral sulci. Leiva-white matter distinction is preserved. Global volume loss and chronic small vessel ischemic change VENTRICLES and EXTRA-AXIAL SPACES: No acute extra-axial or intraventricular hemorrhage. Ventricles and sulci are age-concordant. PARANASAL SINUSES/MASTOIDS: Mild rinh-brpvnms-xfsn-right mucosal thickening. CALVARIUM/ORBITS: No skull fracture. The orbits and globes are intact to the extent visualized. CT CERVICAL SPINE: Demineralization of the bones. PREVERTEBRAL SOFT TISSUES: Within normal limits. CRANIOCERVICAL JUNCTION: Intact. ALIGNMENT: No traumatic malalignment or traumatic facet widening. VERTEBRAE: No acute fracture. Vertebral body heights are maintained. Scattered mild multilevel degenerative disc disease. Vascular calcification No high-grade central canal or foraminal stenosis IMPRESSION: CT HEAD: No acute intracranial abnormality or calvarial fracture. Senescent changes CT CERVICAL SPINE: No acute fracture or traumatic malalignment of the cervical spine. Demineralization and mild degenerative changes. Signed by: Hemanth Quezada 06/04/2024 4:24 PM Dictation workstation: [id number] [facility] Work Phone: Radiology Study observation (narrative) [facility] Work Phone: No Panel InformationOrdered By: Hemanth Quezada on 06-04-2024 [facility] Work Phone: RBC shape Nom (Bld)on 2024 Giant platelets LM Ql (Bld) Few [facility] Ovalocytes LM Ql (Bld) Few [facility] RBC morphology finding Nom (Bld) See Below [facility] Rouleaux LM Ql (Bld) Present [facility] Giant platelets LM Ql (Bld) Few [facility] Comment on above: Performed By: #### 1 7825-3 #### FIDEL MOORES G ([id number]) [facility] ([facility]) [address] [place] [address] Ovalocytes LM Ql (Bld) Few Normal Un [facility] Comment on above: Performed By: #### 1 8225-3 #### FIDEL Hutchinson ([id number]) [facility] ([facility]) [address] [place] [address] RBC morphology finding Nom (Bld) See Below Normal [facility] Comment on above: Performed By: #### 1 8225-3 #### FIDEL LOYOLA G ([id number]) [facility] ([facility]) [address] [place] [address] Rouleaux LM Ql (Bld) Present Normal [facility] Comment on above: Performed By: #### 1 8225-3 #### FIDEL Hutchinson ([id number]) [facility] ([facility]) [address] [place] [address] SARS coronavirus 2 RNAon SARS-CoV-2 (COVID-19) RNA FLEX+probe Ql (Resp) Not detected Normal Not Detected [facility] Comment on above: Order Comment: This assay is an FDA-cleared, in vitro diagnostic nucleic acid amplification test for the qualitative detection and differentiation of SARS CoV-2 from nasopharyngeal specimens collected from individuals with signs and symptoms of respiratory tract infections, and has been validated for use at [facility]. Negative results do not preclude COVID-19 infections and should not be used as the sole basis for diagnosis, treatment, or other management decisions. Testing for SARS CoV-2 is recommended only for patients who meet current clinical and/or epidemiological criteria defined by federal, state, or local public health directives. Performed By: #### 9 4500-6 #### FIDEL Hutchinson ([id number]) [facility] ([facility]) [address] [place] [address] SARS-CoV-2 (COVID-19) RNA NA A+probe Ql (Resp)on 06-04-2024 This assay is an FDA-cleared, in vitro diagnostic nucleic acid amplification test for the qualitative detection and differentiation of SARS CoV-2 from nasopharyngeal specimens collected from individuals with signs and symptoms of respiratory tract infections, and has been validated for use at [facility]. Negative results do not preclude COVID-19 infections and should not be used as the sole basis for diagnosis, treatment, or other management decisions. Testing for SARS CoV-2 is recommended only for patients who meet current clinical and/or epidemiological criteria defined by federal, state, or local public health directives. [facility] Sars-CoV-2 PCRon 06-04-2024 SARS-CoV-2 (COVID-19) RNA FLEX+probe Ql (Resp) Not detected Not Detected [facility] Staphylococcus aureus.methic illin resistant DNAon 06-04-2024 MRSA DNA FLEX+probe Ql (Nose) Staphylococcus aureus.methicillin resistant DNA Not Detected Normal Not Detected [facility] Comment on above: Order Comment: This assay is an FDA-approved in vitro diagnostic nucleic acid amplification test for the detection of methicillin-resistant Staphylococcus aureus (MRSA) DNA directly from nasal swabs in patients at risk for nasal colonization. MRSA NxG is intended to aid in the prevention and control of MRSA infections in healthcare settings. This assay is NOT intended to diagnose, guide, or monitor treatment for MRSA infections, or provide results of susceptibility to methicillin. A negative result does not preclude MRSA nasal colonization. Test performance has not been evaluated in patients less than two years of age. Performed By: #### 9 0001-9 ####FIDEL Hutchinson ([id number])[facility] ([facility])[address] [place] [address] XR CHEST 1 VIEWon 06-04-2024 XR CHEST 1 VIEW Interpreted By: Flaco Guardado, STUDY: XR CHEST 1 VIEW; 06/04/2024 5:51 pm INDICATION: Signs/Symptoms:Hypoxemia . COMPARISON: None. ACCESSION NUMBER(S): [id number] ORDERING CLINICIAN: RANDAL SYKES FINDINGS: CARDIOMEDIASTINAL SILHOUETTE: Cardiomediastinal silhouette is normal in size and configuration. LUNGS: There is patchy airspace disease at the bases worse on the left. Bilateral small effusions. Lungs are hyperinflated. There is no edema ABDOMEN: No remarkable upper abdominal findings. BONES: Postsurgical changes the thoracolumbar junction IMPRESSION: 1. Patchy bibasilar airspace disease worse on the left along with bilateral effusions. Underlying pneumonia and atelectasis in the differential. Radiographic follow-up to resolution in 2-3 weeks is recommended. MACRO: None Signed by: Flaco Golden 06/04/2024 5:56 PM Dictation workstation: [id number] [facility] XR Chest Single viewon 06-04 1. Patchy bibasilar airspace disease worse on the left along with bilateral effusions. Underlying pneumonia and atelectasis in the differential. Radiographic follow-up to resolution in 2-3 weeks is recommended. MACRO: None Signed by: Flaco Golden 06/04/2024 5:56 PM Dictation workstation: [id number] MMODAL Interpreted By: Flaco Guardado, STUDY: XR CHEST 1 VIEW; 06/04/2024 5:51 pm INDICATION: Signs/Symptoms:Hypoxemia . COMPARISON: None. ACCESSION NUMBER(S): [id number] ORDERING CLINICIAN: RANDAL COVERDALE FINDINGS: CARDIOMEDIASTINAL SILHOUETTE: Cardiomediastinal silhouette is normal in size and configuration. LUNGS: There is patchy airspace disease at the bases worse on the left. Bilateral small effusions. Lungs are hyperinflated. There is no edema ABDOMEN: No remarkable upper abdominal findings. BONES: Postsurgical changes the thoracolumbar junction MMODAL Flaco Golden MD - 06/04/2024 Interpreted By: Flaco Golden, STUDY: XR CHEST 1 VIEW; 06/04/2024 5:51 pm INDICATION: Signs/Symptoms:Hypoxemia . COMPARISON: None. ACCESSION NUMBER(S): [id number] ORDERING CLINICIAN: RANDAL COVERDALE FINDINGS: CARDIOMEDIASTINAL SILHOUETTE: Cardiomediastinal silhouette is normal in size and configuration. LUNGS: There is patchy airspace disease at the bases worse on the left. Bilateral small effusions. Lungs are hyperinflated. There is no edema ABDOMEN: No remarkable upper abdominal findings. BONES: Postsurgical changes the thoracolumbar junction IMPRESSION: 1. Patchy bibasilar airspace disease worse on the left along with bilateral effusions. Underlying pneumonia and atelectasis in the differential. Radiographic follow-up to resolution in 2-3 weeks is recommended. MACRO: None Signed by: Flaco Golden 06/04/2024 5:56 PM Dictation workstation: [id number] [facility] Work Phone: [facility] Work Phone: XR HAND RIGHT 3+ VIEWSon XR HAND RIGHT 3+ VIEWS Interpreted By: Flaco Sampson, STUDY: XR HAND RIGHT 3+ VIEWS; ; 06/04/2024 5:51 pm INDICATION: Signs/Symptoms:contusion . COMPARISON: None. ACCESSION NUMBER(S): [id number] ORDERING CLINICIAN: RANDAL COVERDALE FINDINGS: Right hand, three views There is no fracture. There is no dislocation. There are no degenerative changes. There is no lytic or sclerotic lesion. There is no soft tissue abnormality seen. IMPRESSION: No acute abnormality in the right hand MACRO: None Signed by: Flaco Golden 06/04/2024 5:56 PM Dictation workstation: [id number] [facility] XR Hand - right 3 Viewson No acute abnormality in the right hand MACRO: None Signed by: Flaco Golden 06/04/2024 5:56 PM Dictation workstation: [id number] MMODAL Interpreted By: Flaco Guardado, STUDY: XR HAND RIGHT 3+ VIEWS; ; 06/04/2024 5:51 pm INDICATION: Signs/Symptoms:contusion . COMPARISON: None. ACCESSION NUMBER(S): [id number] ORDERING CLINICIAN: RANDAL COVERDALE FINDINGS: Right hand, three views There is no fracture. There is no dislocation. There are no degenerative changes. There is no lytic or sclerotic lesion. There is no soft tissue abnormality seen. MMODAL Flaco Golden MD - 06/04/2024 Interpreted By: Flaco Golden, STUDY: XR HAND RIGHT 3+ VIEWS; ; 06/04/2024 5:51 pm INDICATION: Signs/Symptoms:contusion . COMPARISON: None. ACCESSION NUMBER(S): [id number] ORDERING CLINICIAN: RANDAL COVERDALE FINDINGS: Right hand, three views There is no fracture. There is no dislocation. There are no degenerative changes. There is no lytic or sclerotic lesion. There is no soft tissue abnormality seen. IMPRESSION: No acute abnormality in the right hand MACRO: None Signed by: Flaco Golden 06/04/2024 5:56 PM Dictation workstation: [id number] [facility] Work Phone: XR Hand - right 3 ViewsOrder ed By: Flaco Golden on 06-04-2024 [facility] Work Phone: 12 Lead EKGon 05-31-2024 12 Lead EKG Normal [facility] Basic Metabolic Profile (BMP )on 05-31-2024 BUN/CRE 16.5 RATIO Normal 10-20 [facility] Comment on above: Performed By: #### L 500.2500 ####[facility] [address] [place], [address] CA,Total 8.8 mg/dL Normal 8.5-10.1 [facility] Comment on above: Performed By: #### L 500.2500 ####[facility] [address] [place], [address] Chloride [Moles/Vol] 103 mmol/L Normal 98-107 [facility] Comment on above: Performed By: #### L 500.2500 ####[facility] [address] [place], [address] CO2 [Moles/Vol] 30.0 mmol/L Normal 21.0-32.0 [facility] Comment on above: Performed By: #### L 500.2500 ####[facility] [address] [place], [address] Creatinine [Mass/Vol] 0.54 mg/dL Low 0.55-1.02 [facility] Comment on above: Result Comment: The validity of the calculated GFR GFRAA in patients over70 years has not been determined. Clinical correlation isessential. Performed By: #### L 500.2500 ####[facility] [address] [place], [address] ECRCL 52.91 ml/min Normal [facility] Comment on above: Performed By: #### L 500.2500 ####[facility] [address] [place], [address] EST GFR - AA 142 mL/min Normal >60 [facility] Comment on above: Result Comment: Afri can Puerto [place]ican GFR Calc Performed By: #### L 500.2500 ####[facility] [address] [place], [address] GAP 5 Normal 5-15 [facility] Comment on above: Performed By: #### L 500.2500 ####[facility] [address] [place], [address] GFR/1.73 sq M.predicted among non-blacks MDRD (S/P/Bld) [Vol rate/Area] 118 mL/min/{1.73_m2} Normal >60 [facility] Comment on above: Result Comment: Non- GFR Calc Performed By: #### L 500.2500 ####[facility] [address] [place], [address] Glucose [Mass/Vol] 88 mg/dL Normal 74-106 [facility] Comment on above: Performed By: #### L 500.2500 ####[facility] [address] [place], [address] Potassium [Moles/Vol] 3.5 mmol/L Normal 3.5-5.1 [facility] Comment on above: Performed By: #### L 500.2500 ####[facility] [address] [place], [address] Sodium [Moles/Vol] 139 mmol/L Normal 136-145 [facility] Comment on above: Performed By: #### L 500.2500 ####[facility] [address] [place], [address] Urea nitrogen [Mass/Vol] 9 mg/dL Normal 7-18 [facility] Comment on above: Performed By: #### L 500.2500 ####[facility] [address] [place], [address] Culture, Blood (WB)on 2024 CUB Blood cultures x2, f rom two different sites No growth in 5 days. Normal [facility] Comment on above: Performed By: #### L 503.5510, M200.1000 ####[facility] [address] [place], [address] Basic Metabolic Profile (BMP )on 05-30-2024 BUN/CRE 19.2 RATIO Normal 10-20 [facility] Comment on above: Performed By: #### L 500.2500 ####[facility] [address] [place], [address] CA,Total 8.8 mg/dL Normal 8.5-10.1 [facility] Comment on above: Performed By: #### L 500.2500 ####[facility] [address] [place], [address] Chloride [Moles/Vol] 106 mmol/L Normal 98-107 [facility] Comment on above: Performed By: #### L 500.2500 ####[facility] [address] [place], [address] CO2 [Moles/Vol] 28.0 mmol/L Normal 21.0-32.0 [facility] Comment on above: Performed By: #### L 500.2500 ####[facility] [address] [place], [address] Creatinine [Mass/Vol] 0.57 mg/dL Normal 0.55-1.02 [facility] Comment on above: Result Comment: The validity of the calculated GFR GFRAA in patients over70 years has not been determined. Clinical correlation isessential. Performed By: #### L 500.2500 ####[facility] [address] [place], [address] ECRCL 54.38 ml/min Normal [facility] Comment on above: Performed By: #### L 500.2500 ####[facility] [address] [place], [address] EST GFR - AA 134 mL/min Normal >60 [facility] Comment on above: Result Comment: Afri can [place] GFR Calc Performed By: #### L 500.2500 ####[facility] [address] [place], [address] GAP 7 Normal 5-15 [facility] Comment on above: Performed By: #### L 500.2500 ####[facility] [address] [place], [address] GFR/1.73 sq M.predicted among non-blacks MDRD (S/P/Bld) [Vol rate/Area] 111 mL/min/{1.73_m2} Normal >60 [facility] Comment on above: Result Comment: Non- GFR Calc Performed By: #### L 500.2500 ####[facility] [address] [place], [address] Glucose [Mass/Vol] 80 mg/dL Normal 74-106 [facility] Comment on above: Performed By: #### L 500.2500 ####[facility] [address] [place], [address] Potassium [Moles/Vol] 3.4 mmol/L Low 3.5-5.1 [facility] Comment on above: Performed By: #### L 500.2500 ####[facility] [address] [place], [address] Sodium [Moles/Vol] 141 mmol/L Normal 136-145 [facility] Comment on above: Performed By: #### L 500.2500 ####[facility] [address] [place], [address] Urea nitrogen [Mass/Vol] 11 mg/dL Normal 7-18 [facility] Comment on above: Performed By: #### L 500.2500 ####[facility] [address] [place], [address] CBC W/Diff, Automatedon 02-0 ACANTHOCYTE 1+ Normal [facility] Comment on above: Performed By: #### L 100.0100, L500.4050 ####[facility] [address] [place], [address] Anisocytosis Ql (Bld) 2+ Normal [facility] Comment on above: Performed By: #### L 100.0100, L500.4050 ####[facility] [address] [place], [address] POLYCHROMASIA 1+ Normal [facility] Comment on above: Performed By: #### L 100.0100, L500.4050 ####[facility] [address] [place], [address] OVALOCYTE 1+ Normal [facility] Comment on above: Performed By: #### L 100.0100, L500.4050 ####[facility] [address] [place], [address] PLT EST A Normal ADEQ [facility] Comment on above: Performed By: #### L 100.0100, L500.4050 ####[facility] [address] [place], [address] TARGET CELLS 1+ Normal [facility] Comment on above: Performed By: #### L 100.0100, L500.4050 ####[facility] [address] [place], [address] Comprehensive Metabolic Prof ilon 05-29-2024 Albumin [Mass/Vol] 1.9 g/dL Low 3.2-5.0 [facility] Comment on above: Performed By: #### L 100.0100, L500.4050 ####[facility] [address] [place], [address] Albumin/Globulin [Mass ratio] 0.5 {ratio} Low 0.9-2.4 [facility] Comment on above: Performed By: #### L 100.0100, L500.4050 ####[facility] [address] [place], [address] ALK P 61 U/L Normal 45-117 [facility] Comment on above: Performed By: #### L 100.0100, L500.4050 ####[facility] [address] [place], [address] ALT [Catalytic activity/Vol] 11 U/L Low 13-56 [facility] Comment on above: Performed By: #### L 100.0100, L500.4050 ####[facility] [address] [place], [address] AST [Catalytic activity/Vol] 6 U/L Low 15-37 [facility] Comment on above: Performed By: #### L 100.0100, L500.4050 ####[facility] [address] [place], [address] Bilirubin [Mass/Vol] 0.20 mg/dL Normal 0.20-1.00 [facility] Comment on above: Result Comment: For patients on eltrombopag therapy, use of Dimension Thurmond TBIL is not recommended. Performed By: #### L 100.0100, L500.4050 ####[facility] [address] [place], [address] BUN/CRE 18.6 RATIO Normal 10-20 [facility] Comment on above: Performed By: #### L 100.0100, L500.4050 ####[facility] [address] [place], [address] CA,Total 8.4 mg/dL Low 8.5-10.1 [facility] Comment on above: Performed By: #### L 100.0100, L500.4050 ####[facility] [address] [place], [address] Chloride [Moles/Vol] 107 mmol/L Normal 98-107 [facility] Comment on above: Performed By: #### L 100.0100, L500.4050 ####[facility] [address] [place], [address] CO2 [Moles/Vol] 28.0 mmol/L Normal 21.0-32.0 [facility] Comment on above: Performed By: #### L 100.0100, L500.4050 ####[facility] [address] [place], [address] Creatinine [Mass/Vol] 0.54 mg/dL Low 0.55-1.02 [facility] Comment on above: Result Comment: The validity of the calculated GFR GFRAA in patients over70 years has not been determined. Clinical correlation isessential. Performed By: #### L 100.0100, L500.4050 ####[facility] [address] [place], [address] ECRCL 53.43 ml/min Normal [facility] Comment on above: Performed By: #### L 100.0100, L500.4050 ####[facility] [address] [place], [address] EST GFR - AA 145 mL/min Normal >60 [facility] Comment on above: Result Comment: Afri can [place] GFR Calc Performed By: #### L 100.0100, L500.4050 ####[facility] [address] [place], [address] GAP 6 Normal 5-15 [facility] Comment on above: Performed By: #### L 100.0100, L500.4050 ####[facility] [address] [place], [address] GFR/1.73 sq M.predicted among non-blacks MDRD (S/P/Bld) [Vol rate/Area] 120 mL/min/{1.73_m2} Normal >60 [facility] Comment on above: Result Comment: Non- GFR Calc Performed By: #### L 100.0100, L500.4050 ####[facility] [address] [place], [address] Globulin (S) [Mass/Vol] 3.5 g/dL Normal 2.2-4.2 [facility] Comment on above: Performed By: #### L 100.0100, L500.4050 ####[facility] [address] [place], [address] Glucose [Mass/Vol] 126 mg/dL High 74-106 [facility] Comment on above: Result Comment: Fast ing Glucose result greater than or equal to 126 mg/dLsuggests DIABETES MELLITUS per A.D.A. criteria. Performed By: #### L 100.0100, L500.4050 ####[facility] [address] [place], [address] Potassium [Moles/Vol] 3.2 mmol/L Low 3.5-5.1 [facility] Comment on above: Performed By: #### L 100.0100, L500.4050 ####[facility] [address] [place], [address] Sodium [Moles/Vol] 141 mmol/L Normal 136-145 [facility] Comment on above: Performed By: #### L 100.0100, L500.4050 ####[facility] [address] [place], [address] T PROT 5.4 g/dL Low 6.4-8.2 [facility] Comment on above: Performed By: #### L 100.0100, L500.4050 ####[facility] [address] [place], [address] Urea nitrogen [Mass/Vol] 10 mg/dL Normal 7-18 [facility] Comment on above: Performed By: #### L 100.0100, L500.4050 ####[facility] [address] [place], [address] Basic Metabolic Profile (BMP )on 05-27-2024 BUN/CRE 5.0 RATIO Low 10-20 [facility] Comment on above: Performed By: #### L 500.2500, L100.0100 ####[facility] [address] [place], [address] CA,Total 7.7 mg/dL Low 8.5-10.1 [facility] Comment on above: Performed By: #### L 500.2500, L100.0100 ####[facility] [address] [place], [address] Chloride [Moles/Vol] 107 mmol/L Normal 98-107 [facility] Comment on above: Performed By: #### L 500.2500, L100.0100 ####[facility] [address] [place], [address] CO2 [Moles/Vol] 24.0 mmol/L Normal 21.0-32.0 [facility] Comment on above: Performed By: #### L 500.2500, L100.0100 ####[facility] [address] [place], [address] Creatinine [Mass/Vol] 0.60 mg/dL Normal 0.55-1.02 [facility] Comment on above: Result Comment: The validity of the calculated GFR GFRAA in patients over70 years has not been determined. Clinical correlation isessential. Performed By: #### L 500.2500, L100.0100 ####[facility] [address] [place], [address] ECRCL 53.34 ml/min Normal [facility] Comment on above: Performed By: #### L 500.2500, L100.0100 ####[facility] [address] [place], [address] EST GFR - AA 127 mL/min Normal >60 [facility] Comment on above: Result Comment: Afri can Puerto [place]ican GFR Calc Performed By: #### L 500.2500, L100.0100 ####[facility] [address] [place], [address] GAP 7 Normal 5-15 [facility] Comment on above: Performed By: #### L 500.2500, L100.0100 ####[facility] [address] [place], [address] GFR/1.73 sq M.predicted among non-blacks MDRD (S/P/Bld) [Vol rate/Area] 105 mL/min/{1.73_m2} Normal >60 [facility] Comment on above: Result Comment: Non- GFR Calc Performed By: #### L 500.2500, L100.0100 ####[facility] [address] [place], [address] Glucose [Mass/Vol] 104 mg/dL Normal 74-106 [facility] Comment on above: Result Comment: Fast ing Glucose result from 100 to 125 mg/dLsuggests IMPAIRED HOMEOSTASIS per A.D.A. criteria. Performed By: #### L 500.2500, L100.0100 ####[facility] [address] [place], [address] Potassium [Moles/Vol] 2.9 mmol/L Low 3.5-5.1 [facility] Comment on above: Performed By: #### L 500.2500, L100.0100 ####[facility] [address] [place], [address] Sodium [Moles/Vol] 137 mmol/L Normal 136-145 [facility] Comment on above: Performed By: #### L 500.2500, L100.0100 ####[facility] [address] [place], [address] Urea nitrogen [Mass/Vol] 3 mg/dL Low 7-18 [facility] Comment on above: Performed By: #### L 500.2500, L100.0100 ####[facility] [address] [place], [address] Bedside Glucoseon 05-27-2024 FINGERSTICK GLU 123 mg/dL High 74-106 [facility] Comment on above: Result Comment: MARI MINAYA OF PATIENT CARE PER NURSING PROTOCOL Performed By: #### L 501.080 ####[facility] [address] [place], [address] CBC W/Diff, Automatedon 04-29 Anisocytosis Ql (Bld) 2+ Normal [facility] Comment on above: Performed By: #### L 500.2500, L100.0100 ####[facility] [address] [place], [address] Basic Metabolic Profile (BMP )on 05-26-2024 BUN/CRE 12.9 RATIO Normal 10-20 [facility] Comment on above: Performed By: #### L 500.2500 ####[facility] [address] [place], [address] CA,Total 7.1 mg/dL Low 8.5-10.1 [facility] Comment on above: Performed By: #### L 500.2500 ####[facility] [address] [place], [address] Chloride [Moles/Vol] 115 mmol/L High 98-107 [facility] Comment on above: Performed By: #### L 500.2500 ####[facility] [address] [place], [address] CO2 [Moles/Vol] 21.0 mmol/L Normal 21.0-32.0 [facility] Comment on above: Performed By: #### L 500.2500 ####[facility] [address] [place], [address] Creatinine [Mass/Vol] 0.46 mg/dL Low 0.55-1.02 [facility] Comment on above: Result Comment: The validity of the calculated GFR GFRAA in patients over70 years has not been determined. Clinical correlation isessential. Performed By: #### L 500.2500 ####[facility] [address] [place], [address] ECRCL 54.29 ml/min Normal [facility] Comment on above: Performed By: #### L 500.2500 ####[facility] [address] [place], [address] EST GFR - AA 172 mL/min Normal >60 [facility] Comment on above: Result Comment: Afri can [place] GFR Calc Performed By: #### L 500.2500 ####[facility] [address] [place], [address] GAP 7 Normal 5-15 [facility] Comment on above: Performed By: #### L 500.2500 ####[facility] [address] [place], [address] GFR/1.73 sq M.predicted among non-blacks MDRD (S/P/Bld) [Vol rate/Area] 142 mL/min/{1.73_m2} Normal >60 [facility] Comment on above: Result Comment: Non- GFR Calc Performed By: #### L 500.2500 ####[facility] [address] [place], [address] Glucose [Mass/Vol] 69 mg/dL Low 74-106 [facility] Comment on above: Performed By: #### L 500.2500 ####[facility] [address] [place], [address] Potassium [Moles/Vol] 3.5 mmol/L Normal 3.5-5.1 [facility] Comment on above: Result Comment: Slig ht Hemolysis, Result may be falsely increased. Performed By: #### L 500.2500 ####[facility] [address] [place], [address] Sodium [Moles/Vol] 143 mmol/L Normal 136-145 [facility] Comment on above: Performed By: #### L 500.2500 ####[facility] [address] [place], [address] Urea nitrogen [Mass/Vol] 6 mg/dL Low 7-18 [facility] Comment on above: Performed By: #### L 500.2500 ####[facility] [address] [place], [address] BUN Normal 7-18 [facility] Comment on above: Result Comment: Canc elled via OM: Order cancelled - Patient discharged Performed By: #### L 500.2500, L100.0100 ####[facility] [address] [place], [address] BUN/CRE Normal 10-20 [facility] Comment on above: Result Comment: Canc elled via OM: Order cancelled - Patient discharged Performed By: #### L 500.2500, L100.0100 ####[facility] [address] [place], [address] CA,Total Normal 8.5-10.1 [facility] Comment on above: Result Comment: Canc elled via OM: Order cancelled - Patient discharged Performed By: #### L 500.2500, L100.0100 ####[facility] [address] [place], [address] CL Normal 98-107 [facility] Comment on above: Result Comment: Canc elled via OM: Order cancelled - Patient discharged Performed By: #### L 500.2500, L100.0100 ####[facility] [address] [place], [address] CO2 Normal 21.0-32.0 [facility] Comment on above: Result Comment: Canc elled via OM: Order cancelled - Patient discharged Performed By: #### L 500.2500, L100.0100 ####[facility] [address] [place], [address] CREAT,SERUM Normal 0.55-1.02 [facility] Comment on above: Result Comment: Canc elled via OM: Order cancelled - Patient discharged Performed By: #### L 500.2500, L100.0100 ####[facility] [address] [place], [address] EST GFR Normal >60 [facility] Comment on above: Result Comment: Canc elled via OM: Order cancelled - Patient discharged Performed By: #### L 500.2500, L100.0100 ####[facility] [address] [place], [address] EST GFR - AA Normal >60 [facility] Comment on above: Result Comment: Canc elled via OM: Order cancelled - Patient discharged Performed By: #### L 500.2500, L100.0100 ####[facility] [address] [place], [address] GAP Normal 5-15 [facility] Comment on above: Result Comment: Canc elled via OM: Order cancelled - Patient discharged Performed By: #### L 500.2500, L100.0100 ####[facility] [address] [place], [address] GLU Normal 74-106 [facility] Comment on above: Result Comment: Canc elled via OM: Order cancelled - Patient discharged Performed By: #### L 500.2500, L100.0100 ####[facility] [address] [place], [address] Potassium Normal 3.5-5.1 [facility] Comment on above: Result Comment: Canc elled via OM: Order cancelled - Patient discharged Performed By: #### L 500.2500, L100.0100 ####[facility] [address] [place], [address] Basic Metabolic Profile (BMP) Normal 136-145 [facility] Comment on above: Result Comment: Canc elled via OM: Order cancelled - Patient discharged Performed By: #### L 500.2500, L100.0100 ####[facility] [address] [place], [address] BUN/CRE 14.6 RATIO Normal 10-20 [facility] Comment on above: Performed By: #### L 100.0500, L500.2500, L100.4500 ####[facility] [address] [place], [address] CA,Total 7.3 mg/dL Low 8.5-10.1 [facility] Comment on above: Performed By: #### L 100.0500, L500.2500, L100.4500 ####[facility] [address] [place], [address] Chloride [Moles/Vol] 116 mmol/L High 98-107 [facility] Comment on above: Performed By: #### L 100.0500, L500.2500, L100.4500 ####[facility] [address] [place], [address] CO2 [Moles/Vol] 27.0 mmol/L Normal 21.0-32.0 [facility] Comment on above: Performed By: #### L 100.0500, L500.2500, L100.4500 ####[facility] [address] [place], [address] Creatinine [Mass/Vol] 0.55 mg/dL Normal 0.55-1.02 [facility] Comment on above: Result Comment: The validity of the calculated GFR GFRAA in patients over70 years has not been determined. Clinical correlation isessential. Performed By: #### L 100.0500, L500.2500, L100.4500 ####[facility] [address] [place], [address] ECRCL 54.29 ml/min Normal [facility] Comment on above: Performed By: #### L 100.0500, L500.2500, L100.4500 ####[facility] [address] [place], [address] EST GFR - AA 141 mL/min Normal >60 [facility] Comment on above: Result Comment: Afri can [place] GFR Calc Performed By: #### L 100.0500, L500.2500, L100.4500 ####[facility] [address] [place], [address] GAP 4 Low 5-15 [facility] Comment on above: Performed By: #### L 100.0500, L500.2500, L100.4500 ####[facility] [address] [place], [address] GFR/1.73 sq M.predicted among non-blacks MDRD (S/P/Bld) [Vol rate/Area] 117 mL/min/{1.73_m2} Normal >60 [facility] Comment on above: Result Comment: Non- GFR Calc Performed By: #### L 100.0500, L500.2500, L100.4500 ####[facility] [address] [place], [address] Glucose [Mass/Vol] 90 mg/dL Normal 74-106 [facility] Comment on above: Performed By: #### L 100.0500, L500.2500, L100.4500 ####[facility] [address] [place], [address] Potassium [Moles/Vol] 3.0 mmol/L Low 3.5-5.1 [facility] Comment on above: Performed By: #### L 100.0500, L500.2500, L100.4500 ####[facility] [address] [place], [address] Sodium [Moles/Vol] 147 mmol/L High 136-145 [facility] Comment on above: Performed By: #### L 100.0500, L500.2500, L100.4500 ####[facility] [address] [place], [address] Urea nitrogen [Mass/Vol] 8 mg/dL Normal 7-18 [facility] Comment on above: Performed By: #### L 100.0500, L500.2500, L100.4500 ####[facility] [address] [place], [address] Bedside Glucoseon 05-26-2024 FINGERSTICK GLU 69 mg/dL Low 74-106 [facility] Comment on above: Result Comment: MARI GEMENT OF PATIENT CARE PER NURSING PROTOCOL Performed By: #### L 501.080 ####[facility] [address] [place], [address] FINGERSTICK GLU 180 mg/dL High 74-106 [facility] Comment on above: Result Comment: MARI GEMENT OF PATIENT CARE PER NURSING PROTOCOL Performed By: #### L 501.080 ####[facility] [address] [place], [address] FINGERSTICK GLU 62 mg/dL Low 74-106 [facility] Comment on above: Result Comment: MARI MINAYA OF PATIENT CARE PER NURSING PROTOCOL Performed By: #### L 501.080 ####[facility] [address] [place], [address] [facility] 025 MARCIA TEST Positive Normal [facility] Comment on above: Performed By: #### L 9000.0800 ####[facility] [address] [place], [address] Base excess Calc (Bld) [Moles/Vol] -2 mmol/L Normal -2 to +2 [facility] Comment on above: Performed By: #### L 9000.0800 ####[facility] [address] [place], [address] Blood Gas Type ART Normal [facility] Comment on above: Performed By: #### L 9000.0800 ####[facility] [address] [place], [address] CO2 [Moles/Vol] 25 mmol/L Normal [facility] Comment on above: Performed By: #### L 9000.0800 ####[facility] [address] [place], [address] FI02 40.0 Normal [facility] Comment on above: Performed By: #### L 9000.0800 ####[facility] [address] [place], [address] HCO3 (Bld) [Moles/Vol] 24.0 mmol/L Normal 22-26 [facility] Comment on above: Performed By: #### L 9000.0800 ####[facility] [address] [place], [address] Mode AVAPS Normal [facility] Comment on above: Performed By: #### L 8999.0800 ####[facility] [address] [place], [address] O2 Delivery Dev Not entered Normal [facility] Comment on above: Performed By: #### L 8999.0800 ####[facility] [address] [place], [address] pCO2 44.9 mmHg Normal 35-45 [facility] Comment on above: Performed By: #### L 8999.0800 ####[facility] [address] [place], [address] PEEP 10 Normal [facility] Comment on above: Performed By: #### L 8999.0800 ####[facility] [address] [place], [address] pH (Bld) 7.34 [pH] Low 7.35-7.45 [facility] Comment on above: Performed By: #### L 8999.0800 ####[facility] [address] [place], [address] PO2 83 mmHG Normal 75-100 [facility] Comment on above: Performed By: #### L 8999.0800 ####[facility] [address] [place], [address] SITE L Radial Normal [facility] Comment on above: Performed By: #### L 8999.0800 ####[facility] [address] [place], [address] SO2 95 Normal 95-99 [facility] Comment on above: Performed By: #### L 8999.08 ####[facility] [address] [place], [address] Vt 450.0 mL Normal [facility] Comment on above: Performed By: #### L 0.0800 ####[facility] [address] [place], [address] MARCIA TEST N/A Normal [facility] Comment on above: Performed By: #### L 8999.0800 ####[facility] [address] [place], [address] Base excess Calc (Bld) [Moles/Vol] -1 mmol/L Normal -2 to +2 [facility] Comment on above: Performed By: #### L 8999.0800 ####[facility] [address] [place], [address] Blood Gas Type ART Normal [facility] Comment on above: Performed By: #### L 8999.0800 ####[facility] [address] [place], [address] CO2 [Moles/Vol] 28 mmol/L Normal [facility] Comment on above: Performed By: #### L 8999.0800 ####[facility] [address] [place], [address] FI02 75.0 Normal [facility] Comment on above: Performed By: #### L 8999.0800 ####[facility] [address] [place], [address] HCO3 (Bld) [Moles/Vol] 25.9 mmol/L Normal 22-26 [facility] Comment on above: Performed By: #### L 8999.0800 ####[facility] [address] [place], [address] Mode Not entered Normal [facility] Comment on above: Performed By: #### L 8999.0800 ####[facility] [address] [place], [address] O2 Delivery Dev BiPAP Normal [facility] Comment on above: Performed By: #### L 8999.0800 ####[facility] [address] [place], [address] pCO2 54.7 mmHg High 35-45 [facility] Comment on above: Performed By: #### L 9000.0800 ####[facility] [address] [place], [address] PEEP 10 Normal [facility] Comment on above: Performed By: #### L 9000.0800 ####[facility] [address] [place], [address] pH (Bld) 7.28 [pH] Low 7.35-7.45 [facility] Comment on above: Performed By: #### L 9000.0800 ####[facility] [address] [place], [address] PO2 203 mmHG High 75-100 [facility] Comment on above: Performed By: #### L 9000.0800 ####[facility] [address] [place], [address] RR 16 Normal [facility] Comment on above: Performed By: #### L 9000.0800 ####[facility] [address] [place], [address] SITE L Radial Normal [facility] Comment on above: Performed By: #### L 9000.0800 ####[facility] [address] [place], [address] SO2 100 High 95-99 [facility] Comment on above: Performed By: #### L 9000.0800 ####[facility] [address] [place], [address] Vt 450.0 mL Normal [facility] Comment on above: Performed By: #### L 9000.0800 ####[facility] [address] [place], [address] CBC W/Diff, Automatedon 01-3 0-2025 Absolute Neut Normal 2.0-7.7 [facility] Comment on above: Result Comment: Canc elled via OM: Order cancelled - Patient discharged Performed By: #### L 500.2500, L100.0100 ####[facility] [address] [place], [address] HCT Normal 37-47 [facility] Comment on above: Result Comment: Canc elled via OM: Order cancelled - Patient discharged Performed By: #### L 500.2500, L100.0100 ####[facility] [address] [place], [address] HGB Normal 12.0-15.0 [facility] Comment on above: Result Comment: Canc elled via OM: Order cancelled - Patient discharged Performed By: #### L 500.2500, L100.0100 ####[facility] [address] [place], [address] MCH Normal 27.0-32.0 [facility] Comment on above: Result Comment: Canc elled via OM: Order cancelled - Patient discharged Performed By: #### L 500.2500, L100.0100 ####[facility] [address] [place], [address] MCHC Normal 32-36 [facility] Comment on above: Result Comment: Canc elled via OM: Order cancelled - Patient discharged Performed By: #### L 500.2500, L100.0100 ####[facility] [address] [place], [address] MCV Normal 81-99 [facility] Comment on above: Result Comment: Canc elled via OM: Order cancelled - Patient discharged Performed By: #### L 500.2500, L100.0100 ####[facility] [address] [place], [address] NEUT% Normal 47-70 [facility] Comment on above: Result Comment: Canc elled via OM: Order cancelled - Patient discharged Performed By: #### L 500.2500, L100.0100 ####[facility] [address] [place], [address] PLT Normal 150-450 [facility] Comment on above: Result Comment: Canc elled via OM: Order cancelled - Patient discharged Performed By: #### L 500.2500, L100.0100 ####[facility] [address] [place], [address] RBC Normal 4.2-5.4 [facility] Comment on above: Result Comment: Canc elled via OM: Order cancelled - Patient discharged Performed By: #### L 500.2500, L100.0100 ####[facility] [address] [place], [address] RDW CV Normal 11.6-14.6 [facility] Comment on above: Result Comment: Canc elled via OM: Order cancelled - Patient discharged Performed By: #### L 500.2500, L100.0100 ####[facility] [address] [place], [address] RDW SD Normal 35.1-43.9 [facility] Comment on above: Result Comment: Canc elled via OM: Order cancelled - Patient discharged Performed By: #### L 500.2500, L100.0100 ####[facility] [address] [place], [address] WBC Normal 4.4-11.0 [facility] Comment on above: Result Comment: Canc elled via OM: Order cancelled - Patient discharged Performed By: #### L 500.2500, L100.0100 ####[facility] [address] [place], [address] CBC-Complete Blood Cnt No Di ffon 05-26-2024 Erythrocyte distribution width (RBC) [Ratio] 23.4 % High 11.6-14.6 [facility] Comment on above: Performed By: #### L 100.0500, L500.2500, L100.4500 ####[facility] [address] [place], [address] Hematocrit (Bld) [Volume fraction] 29.9 % Low 37-47 [facility] Comment on above: Performed By: #### L 100.0500, L500.2500, L100.4500 ####[facility] [address] [place], [address] Hemoglobin (Bld) [Mass/Vol] 9.1 g/dL Low 12.0-15.0 [facility] Comment on above: Performed By: #### L 100.0500, L500.2500, L100.4500 ####[facility] [address] [place], [address] MCH (RBC) [Entitic mass] 26.6 pg Low 27.0-32.0 [facility] Comment on above: Performed By: #### L 100.0500, L500.2500, L100.4500 ####[facility] [address] [place], [address] MCHC (RBC) [Mass/Vol] 30.4 g/dL Low 32-36 [facility] Comment on above: Performed By: #### L 100.0500, L500.2500, L100.4500 ####[facility] [address] [place], [address] MCV (RBC) [Entitic vol] 87.4 fL Normal 81-99 [facility] Comment on above: Performed By: #### L 100.0500, L500.2500, L100.4500 ####[facility] [address] [place], [address] Platelet mean volume (Bld) [Entitic vol] 9.1 fL Normal 6.2-12.0 [facility] Comment on above: Performed By: #### L 100.0500, L500.2500, L100.4500 ####[facility] [address] [place], [address] Platelets (Bld) [#/Vol] 523 10*3/uL High 150-450 [facility] Comment on above: Performed By: #### L 100.0500, L500.2500, L100.4500 ####[facility] [address] [place], [address] RBC (Bld) [#/Vol] 3.42 10*6/uL Low 4.2-5.4 [facility] Comment on above: Performed By: #### L 100.0500, L500.2500, L100.4500 ####[facility] [address] [place], [address] RDW SD 73.8 fl High 35.1-43.9 [facility] Comment on above: Performed By: #### L 100.0500, L500.2500, L100.4500 ####[facility] [address] [place], [address] WBC (Bld) [#/Vol] 9.7 10*3/uL Normal 4.4-11.0 [facility] Comment on above: Performed By: #### L 100.0500, L500.2500, L100.4500 ####[facility] [address] [place], [address] CTA Chest W/WO Contraston CTA Chest W/WO Contrast Normal [facility] Consultation - Intensiviston 05-26-2024 Consultation - House Parent Normal [facility] Differential Commenton 05-26 SMEAR COMMENT SCANNED Normal [facility] Comment on above: Result Comment: ANIS O 1+STOMATOCYTES RAREECHINOCYTES RAREOCALOCYTE RARETEARDROP CELL RARE Performed By: #### L 100.0500, L500.2500, L100.4500 ####[facility] [address] [place], [address] M100.019on 05-26-2024 M100.019 Negative Normal [facility] Comment on above: Performed By: #### M 100.019, M100.638 ####[facility] [address] [place], [address] MR/CON.PCM.NEon 05-26-2024 MR/CON.PCM.NE Normal [facility] Magnesiumon 05-26-2024 Magnesium [Mass/Vol] 1.6 mg/dL Normal 1.6-2.6 [facility] Comment on above: Performed By: #### L 501.2300, L501.5200 ####[facility] [address] [place], [address] Phosphoruson 05-26-2024 Phosphate [Mass/Vol] 2.6 mg/dL Normal 2.5-4.9 [facility] Comment on above: Performed By: #### L 501.2300, L501.5200 ####[facility] [address] [place], [address] RESPIRATORY PANEL MOLECULARo n 05-26-2024 RP PANEL Normal [facility] Comment on above: Performed By: #### M 100.019, M100.638 ####[facility] [address] [place], [address] T4 Free Directon 05-26-2024 T4 FREE DIRECT 0.50 ng/dL Low 0.76-1.46 [facility] Comment on above: Performed By: #### L 501.9520, L506.0400 ####[facility] [address] [place], [address] Thyroid Stim Hormone (TSH)on 05-26-2024 TSH 30.000 uIU/mL High 0.358-3.740 [facility] Comment on above: Performed By: #### L 501.9520, L506.0400 ####[facility] [address] [place], [address] Urine Cultureon 05-26-2024 URC Culture exhibits no growth. Normal [facility] Comment on above: Performed By: #### M 100.2200 ####[facility] [address] [place], [address] 12 Lead EKGon 05-25-2024 12 Lead EKG Normal [facility] Ammoniaon 05-25-2024 Ammonia (P) [Mass/Vol] ug/dL Low 11-32 [facility] Comment on above: Performed By: #### L 503.5510, M200.1000 ####[facility] [address] [place], [address] Basic Metabolic Profile (BMP )on 05-25-2024 BUN Normal 7-18 [facility] Comment on above: Result Comment: Canc elled via OM: Order cancelled - Patient discharged Performed By: #### L 500.2500, L100.0100 ####[facility] [address] [place], [address] BUN/CRE Normal 10-20 [facility] Comment on above: Result Comment: Canc elled via OM: Order cancelled - Patient discharged Performed By: #### L 500.2500, L100.0100 ####[facility] [address] [place], [address] CA,Total Normal 8.5-10.1 [facility] Comment on above: Result Comment: Canc elled via OM: Order cancelled - Patient discharged Performed By: #### L 500.2500, L100.0100 ####[facility] [address] [place], [address] CL Normal 98-107 [facility] Comment on above: Result Comment: Canc elled via OM: Order cancelled - Patient discharged Performed By: #### L 500.2500, L100.0100 ####[facility] [address] [place], [address] CO2 Normal 21.0-32.0 [facility] Comment on above: Result Comment: Canc elled via OM: Order cancelled - Patient discharged Performed By: #### L 500.2500, L100.0100 ####[facility] [address] [place], [address] CREAT,SERUM Normal 0.55-1.02 [facility] Comment on above: Result Comment: Canc elled via OM: Order cancelled - Patient discharged Performed By: #### L 500.2500, L100.0100 ####[facility] [address] [place], [address] EST GFR Normal >60 [facility] Comment on above: Result Comment: Canc elled via OM: Order cancelled - Patient discharged Performed By: #### L 500.2500, L100.0100 ####[facility] [address] [place], [address] EST GFR - AA Normal >60 [facility] Comment on above: Result Comment: Canc elled via OM: Order cancelled - Patient discharged Performed By: #### L 500.2500, L100.0100 ####[facility] [address] [place], [address] GAP Normal 5-15 [facility] Comment on above: Result Comment: Canc elled via OM: Order cancelled - Patient discharged Performed By: #### L 500.2500, L100.0100 ####[facility] [address] [place], [address] GLU Normal 74-106 [facility] Comment on above: Result Comment: Canc elled via OM: Order cancelled - Patient discharged Performed By: #### L 500.2500, L100.0100 ####[facility] [address] [place], [address] Potassium Normal 3.5-5.1 [facility] Comment on above: Result Comment: Canc elled via OM: Order cancelled - Patient discharged Performed By: #### L 500.2500, L100.0100 ####[facility] [address] [place], [address] Basic Metabolic Profile (BMP) Normal 136-145 [facility] Comment on above: Result Comment: Canc elled via OM: Order cancelled - Patient discharged Performed By: #### L 500.2500, L100.0100 ####[facility] [address] [place], [address] Bedside Glucoseon 05-25-2024 FINGERSTICK GLU 70 mg/dL Low 74-106 [facility] Comment on above: Result Comment: MARI GEMENT OF PATIENT CARE PER NURSING PROTOCOL Performed By: #### L 501.080 ####[facility] [address] [place], [address] FINGERSTICK GLU 78 mg/dL Normal 74-106 [facility] Comment on above: Result Comment: MARI GEMENT OF PATIENT CARE PER NURSING PROTOCOL Performed By: #### L 501.080 ####[facility] [address] [place], [address] Blood Gases by CPSon 025 MARCIA TEST N/A Normal [facility] Comment on above: Performed By: #### L 9000.0800 ####[facility] [address] [place], [address] Base excess Calc (Bld) [Moles/Vol] -4 mmol/L Low -2 to +2 [facility] Comment on above: Performed By: #### L 9000.0800 ####[facility] [address] [place], [address] Blood Gas Type ART Normal [facility] Comment on above: Performed By: #### L 9000.0800 ####[facility] [address] [place], [address] CO2 [Moles/Vol] 25 mmol/L Normal [facility] Comment on above: Performed By: #### L 9000.0800 ####[facility] [address] [place], [address] [facility] Comment on above: Performed By: #### L 9000.0800 ####[facility] [address] [place], [address] HCO3 (Bld) [Moles/Vol] 23.7 mmol/L Normal 22-26 [facility] Comment on above: Performed By: #### L 9000.0800 ####[facility] [address] [place], [address] Mode Not entered Normal [facility] Comment on above: Performed By: #### L 9000.0800 ####[facility] [address] [place], [address] O2 Delivery Dev BiPAP Normal [facility] Comment on above: Performed By: #### L 9000.0800 ####[facility] [address] [place], [address] pCO2 54.6 mmHg High 35-45 [facility] Comment on above: Performed By: #### L 9000.0800 ####[facility] [address] [place], [address] PEEP 10 Normal [facility] Comment on above: Performed By: #### L 9000.0800 ####[facility] [address] [place], [address] pH (Bld) 7.25 [pH] Low 7.35-7.45 [facility] Comment on above: Performed By: #### L 8999.0800 ####[facility] [address] [place], [address] PO2 105 mmHG High 75-100 [facility] Comment on above: Performed By: #### L 8999.0800 ####[facility] [address] [place], [address] RR 14 Normal [facility] Comment on above: Performed By: #### L 8999.0800 ####[facility] [address] [place], [address] SITE L Radial Normal [facility] Comment on above: Performed By: #### L 8999.0800 ####[facility] [address] [place], [address] SO2 97 Normal 95-99 [facility] Comment on above: Performed By: #### L 8999.0800 ####[facility] [address] [place], [address] Vt 450.0 mL Normal [facility] Comment on above: Performed By: #### L 8999.0800 ####[facility] [address] [place], [address] MARCIA TEST Positive Normal [facility] Comment on above: Performed By: #### L 8999.0800 ####[facility] [address] [place], [address] Base excess Calc (Bld) [Moles/Vol] 2 mmol/L Normal -2 to +2 [facility] Comment on above: Performed By: #### L 8999.0800 ####[facility] [address] [place], [address] Blood Gas Type ART Normal [facility] Comment on above: Performed By: #### L 0.0800 ####[facility] [address] [place], [address] CO2 [Moles/Vol] 28 mmol/L Normal [facility] Comment on above: Performed By: #### L 9000.0800 ####[facility] [address] [place], [address] FI02 44.0 Normal [facility] Comment on above: Performed By: #### L 0.0800 ####[facility] [address] [place], [address] HCO3 (Bld) [Moles/Vol] 27.0 mmol/L High 22-26 [facility] Comment on above: Performed By: #### L 0.0800 ####[facility] [address] [place], [address] Mode Not entered Normal [facility] Comment on above: Performed By: #### L 9000.0800 ####[facility] [address] [place], [address] O2 Delivery Dev Cannula Normal [facility] Comment on above: Performed By: #### L 9000.0800 ####[facility] [address] [place], [address] pCO2 47.3 mmHg High 35-45 [facility] Comment on above: Performed By: #### L 9000.0800 ####[facility] [address] [place], [address] pH (Bld) 7.36 [pH] Normal 7.35-7.45 [facility] Comment on above: Performed By: #### L 9000.0800 ####[facility] [address] [place], [address] PO2 184 mmHG High 75-100 [facility] Comment on above: Performed By: #### L 0.0800 ####[facility] [address] [place], [address] SITE R Radial Normal [facility] Comment on above: Performed By: #### L 9000.0800 ####[facility] [address] [place], [address] SO2 100 High 95-99 [facility] Comment on above: Performed By: #### L 9000.0800 ####[facility] [address] [place], [address] Brain/Head without Contrasto n 05-25-2024 Brain/Head without Contrast Normal [facility] CBC W/Diff, Automatedon 04-28 Anisocytosis Ql (Bld) 2+ Normal [facility] Comment on above: Performed By: #### L 300.4310, L300.3900, L501.5425, L100.0100, L503.6005, L500.4050 ####[facility] [address] [place], [address] HYPOCHROMASIA 2+ Normal [facility] Comment on above: Performed By: #### L 300.4310, L300.3900, L501.5425, L100.0100, L503.6005, L500.4050 ####[facility] [address] [place], [address] PLT EST ADEQUATE Normal ADEQ [facility] Comment on above: Performed By: #### L 300.4310, L300.3900, L501.5425, L100.0100, L503.6005, L500.4050 ####[facility] [address] [place], [address] SMEAR COMMENT SCANNED Normal [facility] Comment on above: Performed By: #### L 300.4310, L300.3900, L501.5425, L100.0100, L503.6005, L500.4050 ####[facility] [address] [place], [address] Absolute Neut Normal 2.0-7.7 [facility] Comment on above: Result Comment: Canc elled via OM: Order cancelled - Patient discharged Performed By: #### L 500.2500, L100.0100 ####[facility] [address] [place], [address] HCT Normal 37-47 [facility] Comment on above: Result Comment: Canc elled via OM: Order cancelled - Patient discharged Performed By: #### L 500.2500, L100.0100 ####[facility] [address] [place], [address] HGB Normal 12.0-15.0 [facility] Comment on above: Result Comment: Canc elled via OM: Order cancelled - Patient discharged Performed By: #### L 500.2500, L100.0100 ####[facility] [address] [place], [address] MCH Normal 27.0-32.0 [facility] Comment on above: Result Comment: Canc elled via OM: Order cancelled - Patient discharged Performed By: #### L 500.2500, L100.0100 ####[facility] [address] [place], [address] MCHC Normal 32-36 [facility] Comment on above: Result Comment: Canc elled via OM: Order cancelled - Patient discharged Performed By: #### L 500.2500, L100.0100 ####[facility] [address] [place], [address] MCV Normal 81-99 [facility] Comment on above: Result Comment: Canc elled via OM: Order cancelled - Patient discharged Performed By: #### L 500.2500, L100.0100 ####[facility] [address] [place], [address] NEUT% Normal 47-70 [facility] Comment on above: Result Comment: Canc elled via OM: Order cancelled - Patient discharged Performed By: #### L 500.2500, L100.0100 ####[facility] [address] [place], [address] PLT Normal 150-450 [facility] Comment on above: Result Comment: Canc elled via OM: Order cancelled - Patient discharged Performed By: #### L 500.2500, L100.0100 ####[facility] [address] [place], [address] RBC Normal 4.2-5.4 [facility] Comment on above: Result Comment: Canc elled via OM: Order cancelled - Patient discharged Performed By: #### L 500.2500, L100.0100 ####[facility] [address] [place], [address] RDW CV Normal 11.6-14.6 [facility] Comment on above: Result Comment: Canc elled via OM: Order cancelled - Patient discharged Performed By: #### L 500.2500, L100.0100 ####[facility] [address] [place], [address] RDW SD Normal 35.1-43.9 [facility] Comment on above: Result Comment: Canc elled via OM: Order cancelled - Patient discharged Performed By: #### L 500.2500, L100.0100 ####[facility] [address] [place], [address] WBC Normal 4.4-11.0 [facility] Comment on above: Result Comment: Canc elled via OM: Order cancelled - Patient discharged Performed By: #### L 500.2500, L100.0100 ####[facility] [address] [place], [address] Chest 1 View (Portable)on Chest 1 View (Portable) Normal [facility] Comprehensive Metabolic Prof ilon 05-25-2024 Albumin [Mass/Vol] 2.9 g/dL Low 3.2-5.0 [facility] Comment on above: Order Comment: 1Y Performed By: #### L 300.4310, L300.3900, L501.5425, L100.0100, L503.6005, L500.4050 ####[facility] [address] [place], [address] Albumin/Globulin [Mass ratio] 0.8 {ratio} Low 0.9-2.4 [facility] Comment on above: Order Comment: 1Y Performed By: #### L 300.4310, L300.3900, L501.5425, L100.0100, L503.6005, L500.4050 ####[facility] [address] [place], [address] ALK P 70 U/L Normal 45-117 [facility] Comment on above: Order Comment: 1Y Performed By: #### L 300.4310, L300.3900, L501.5425, L100.0100, L503.6005, L500.4050 ####[facility] [address] [place], [address] ALT [Catalytic activity/Vol] 17 U/L Normal 13-56 [facility] Comment on above: Order Comment: 1Y Performed By: #### L 300.4310, L300.3900, L501.5425, L100.0100, L503.6005, L500.4050 ####[facility] [address] [place], [address] AST [Catalytic activity/Vol] 17 U/L Normal 15-37 [facility] Comment on above: Order Comment: 1Y Performed By: #### L 300.4310, L300.3900, L501.5425, L100.0100, L503.6005, L500.4050 ####[facility] [address] [place], [address] Bilirubin [Mass/Vol] 0.20 mg/dL Normal 0.20-1.00 [facility] Comment on above: Order Comment: 1Y Result Comment: For patients on eltrombopag therapy, use of Dimension Thurmond TBIL is not recommended. Performed By: #### L 300.4310, L300.3900, L501.5425, L100.0100, L503.6005, L500.4050 ####[facility] [address] [place], [address] BUN/CRE 12.3 RATIO Normal 10-20 [facility] Comment on above: Order Comment: 1Y Performed By: #### L 300.4310, L300.3900, L501.5425, L100.0100, L503.6005, L500.4050 ####[facility] [address] [place], [address] CA,Total 8.6 mg/dL Normal 8.5-10.1 [facility] Comment on above: Order Comment: 1Y Performed By: #### L 300.4310, L300.3900, L501.5425, L100.0100, L503.6005, L500.4050 ####[facility] [address] [place], [address] Chloride [Moles/Vol] 103 mmol/L Normal 98-107 [facility] Comment on above: Order Comment: 1Y Performed By: #### L 300.4310, L300.3900, L501.5425, L100.0100, L503.6005, L500.4050 ####[facility] [address] [place], [address] CO2 [Moles/Vol] 28.0 mmol/L Normal 21.0-32.0 [facility] Comment on above: Order Comment: 1Y Performed By: #### L 300.4310, L300.3900, L501.5425, L100.0100, L503.6005, L500.4050 ####[facility] [address] [place], [address] Creatinine [Mass/Vol] 0.89 mg/dL Normal 0.55-1.02 [facility] Comment on above: Order Comment: 1Y Result Comment: The validity of the calculated GFR GFRAA in patients over70 years has not been determined. Clinical correlation isessential. Performed By: #### L 300.4310, L300.3900, L501.5425, L100.0100, L503.6005, L500.4050 ####[facility] [address] [place], [address] EST GFR - AA 81 mL/min Normal >60 [facility] Comment on above: Order Comment: 1Y Result Comment: Afri can Puerto [place]ican GFR Calc Performed By: #### L 300.4310, L300.3900, L501.5425, L100.0100, L503.6005, L500.4050 ####[facility] [address] [place], [address] GAP 7 Normal 5-15 [facility] Comment on above: Order Comment: 1Y Performed By: #### L 300.4310, L300.3900, L501.5425, L100.0100, L503.6005, L500.4050 ####[facility] [address] [place], [address] GFR/1.73 sq M.predicted among non-blacks MDRD (S/P/Bld) [Vol rate/Area] 67 mL/min/{1.73_m2} Normal >60 [facility] Comment on above: Order Comment: 1Y Result Comment: Non- GFR Calc Performed By: #### L 300.4310, L300.3900, L501.5425, L100.0100, L503.6005, L500.4050 ####[facility] [address] [place], [address] Globulin (S) [Mass/Vol] 3.6 g/dL Normal 2.2-4.2 [facility] Comment on above: Order Comment: 1Y Performed By: #### L 300.4310, L300.3900, L501.5425, L100.0100, L503.6005, L500.4050 ####[facility] [address] [place], [address] Glucose [Mass/Vol] 77 mg/dL Normal 74-106 [facility] Comment on above: Order Comment: 1Y Performed By: #### L 300.4310, L300.3900, L501.5425, L100.0100, L503.6005, L500.4050 ####[facility] [address] [place], [address] Potassium [Moles/Vol] 3.4 mmol/L Low 3.5-5.1 [facility] Comment on above: Order Comment: 1Y Performed By: #### L 300.4310, L300.3900, L501.5425, L100.0100, L503.6005, L500.4050 ####[facility] [address] [place], [address] Sodium [Moles/Vol] 138 mmol/L Normal 136-145 [facility] Comment on above: Order Comment: 1Y Performed By: #### L 300.4310, L300.3900, L501.5425, L100.0100, L503.6005, L500.4050 ####[facility] [address] [place], [address] T PROT 6.5 g/dL Normal 6.4-8.2 [facility] Comment on above: Order Comment: 1Y Performed By: #### L 300.4310, L300.3900, L501.5425, L100.0100, L503.6005, L500.4050 ####[facility] [address] [place], [address] Urea nitrogen [Mass/Vol] 11 mg/dL Normal 7-18 [facility] Comment on above: Order Comment: 1Y Performed By: #### L 300.4310, L300.3900, L501.5425, L100.0100, L503.6005, L500.4050 ####[facility] [address] [place], [address] Emergency Department Summary on 05-25-2024 Emergency Department Summary Normal [facility] H AND P Exam - Hospitaliston 05-25-2024 H&P Exam - Hospitalist Normal [facility] L501.4020on 05-25-2024 TROPONIN-I HS 18 pg/mL Normal 3.0-54.0 [facility] Comment on above: Result Comment: Plea se Note: New Test Units and Gender Specific Reference Ranges. For more information see Policy Stat Procedure Thurmond High Sensitivity Troponin (TNIH) and attachments. Performed By: #### L 501.4020 ####[facility] [address] [place], [address] L501.5425on 05-25-2024 TROPONIN-I HS 17 pg/mL Normal 3.0-54.0 [facility] Comment on above: Order Comment: 1Y Result Comment: Plea se Note: New Test Units and Gender Specific Reference Ranges. For more information see Policy Stat Procedure Thurmond High Sensitivity Troponin (TNIH) and attachments. Performed By: #### L 300.4310, L300.3900, L501.5425, L100.0100, L503.6005, L500.4050 ####[facility] [address] [place], [address] Lactic Acidon 05-25-2024 Lactate [Moles/Vol] 1.2 mmol/L Normal 0.4-1.9 [facility] Comment on above: Order Comment: Y Performed By: #### L 503.6005 ####[facility] [address] [place], [address] Lactate [Moles/Vol] 1.4 mmol/L Normal 0.4-1.9 [facility] Comment on above: Order Comment: Y Performed By: #### L 300.4310, L300.3900, L501.5425, L100.0100, L503.6005, L500.4050 ####[facility] [address] [place], [address] Partial Thromboplast Timeon 05-25-2024 aPTT Coag (Bld) [Time] 26.9 s Normal 24.1-36.2 [facility] Comment on above: Performed By: #### L 300.4310, L300.3900, L501.5425, L100.0100, L503.6005, L500.4050 ####[facility] [address] [place], [address] Prothrombin Time w/INRon INR Coag (PPP) [Relative time] 1.0 {INR} Normal [facility] Comment on above: Performed By: #### L 300.4310, L300.3900, L501.5425, L100.0100, L503.6005, L500.4050 ####[facility] [address] [place], [address] PT Coag (PPP) [Time] 13.2 s Normal 11.7-14.9 [facility] Comment on above: Performed By: #### L 300.4310, L300.3900, L501.5425, L100.0100, L503.6005, L500.4050 ####[facility] [address] [place], [address] Urinalysis, Completeon 05-25 BACTERIA 0 SEEN Normal None Seen [facility] Comment on above: Order Comment: CLAUDIA TER SPECIMEN Performed By: #### L 400.0001 ####[facility] [address] [place], [address] EPI,SQUAMOUS 0 SEEN Normal 5-10 [facility] Comment on above: Order Comment: CLAUDIA TER SPECIMEN Performed By: #### L 400.0001 ####[facility] [address] [place], [address] Mucus Ql (Urine sed) 0 SEEN Normal [facility] Comment on above: Order Comment: CLAUDIA TER SPECIMEN Performed By: #### L 400.0001 ####[facility] [address] [place], [address] RBC 0 SEEN Normal 0-5 [facility] Comment on above: Order Comment: CLAUDIA TER SPECIMEN Performed By: #### L 400.0001 ####[facility] [address] [place], [address] WBC 0 SEEN Normal 0-5 [facility] Comment on above: Order Comment: CLAUDIA TER SPECIMEN Performed By: #### L 400.0001 ####[facility] [address] [place], [address] Urine Drug Screen (VISTA)on 05-25-2024 AMPHETAMINES Negative Normal <1000 ng/mL [facility] Comment on above: Performed By: #### L 505.5000 ####[facility] [address] [place], [address] BARBITIURATES Negative Normal < 200 ng/mL [facility] Comment on above: Performed By: #### L 505.5000 ####[facility] [address] [place], [address] BENZODIAZIPINE Negative Normal < 200 ng/mL [facility] Comment on above: Performed By: #### L 505.5000 ####[facility] [address] [place], [address] COCAINE Negative Normal < 300 ng/mL [facility] Comment on above: Performed By: #### L 505.5000 ####[facility] [address] [place], [address] ECSTACY Negative Normal < 500 ng/mL [facility] Comment on above: Performed By: #### L 505.5000 ####[facility] [address] [place], [address] METHADONE Negative Normal < 300 ng/mL [facility] Comment on above: Performed By: #### L 505.5000 ####[facility] [address] [place], [address] OPIATES Negative Normal < 300 ng/mL [facility] Comment on above: Performed By: #### L 505.5000 ####[facility] [address] [place], [address] PCP Negative Normal < 25 ng/mL [facility] Comment on above: Performed By: #### L 505.5000 ####[facility] [address] [place], [address] THC Negative Normal < 50 ng/mL [facility] Comment on above: Performed By: #### L 505.5000 ####[facility] [address] [place], [address] VISTA UDS PH 6 Normal [facility] Comment on above: Performed By: #### L 505.5000 ####[facility] [address] [place], [address] Basic Metabolic Profile (BMP )on 05-24-2024 BUN/CRE 17.1 RATIO Normal 10-20 [facility] Comment on above: Performed By: #### L 500.2500, L501.5200, L501.2300, L100.0100 ####[facility] [address] [place], [address] CA,Total 9.4 mg/dL Normal 8.5-10.1 [facility] Comment on above: Performed By: #### L 500.2500, L501.5200, L501.2300, L100.0100 ####[facility] [address] [place], [address] Chloride [Moles/Vol] 104 mmol/L Normal 98-107 [facility] Comment on above: Performed By: #### L 500.2500, L501.5200, L501.2300, L100.0100 ####[facility] [address] [place], [address] CO2 [Moles/Vol] 26.0 mmol/L Normal 21.0-32.0 [facility] Comment on above: Performed By: #### L 500.2500, L501.5200, L501.2300, L100.0100 ####[facility] [address] [place], [address] Creatinine [Mass/Vol] 0.76 mg/dL Normal 0.55-1.02 [facility] Comment on above: Result Comment: The validity of the calculated GFR GFRAA in patients over70 years has not been determined. Clinical correlation isessential. Performed By: #### L 500.2500, L501.5200, L501.2300, L100.0100 ####[facility] [address] [place], [address] ECRCL 48.34 ml/min Normal [facility] Comment on above: Performed By: #### L 500.2500, L501.5200, L501.2300, L100.0100 ####[facility] [address] [place], [address] EST GFR - AA 97 mL/min Normal >60 [facility] Comment on above: Result Comment: Afri can [place]ican GFR Calc Performed By: #### L 500.2500, L501.5200, L501.2300, L100.0100 ####[facility] [address] [place], [address] GAP 7 Normal 5-15 [facility] Comment on above: Performed By: #### L 500.2500, L501.5200, L501.2300, L100.0100 ####[facility] [address] [place], [address] GFR/1.73 sq M.predicted among non-blacks MDRD (S/P/Bld) [Vol rate/Area] 80 mL/min/{1.73_m2} Normal >60 [facility] Comment on above: Result Comment: Non- GFR Calc Performed By: #### L 500.2500, L501.5200, L501.2300, L100.0100 ####[facility] [address] [place], [address] Glucose [Mass/Vol] 115 mg/dL High 74-106 [facility] Comment on above: Result Comment: Fast ing Glucose result from 100 to 125 mg/dLsuggests IMPAIRED HOMEOSTASIS per A.D.A. criteria. Performed By: #### L 500.2500, L501.5200, L501.2300, L100.0100 ####[facility] [address] [place], [address] Potassium [Moles/Vol] 3.6 mmol/L Normal 3.5-5.1 [facility] Comment on above: Performed By: #### L 500.2500, L501.5200, L501.2300, L100.0100 ####[facility] [address] [place], [address] Sodium [Moles/Vol] 137 mmol/L Normal 136-145 [facility] Comment on above: Performed By: #### L 500.2500, L501.5200, L501.2300, L100.0100 ####[facility] [address] [place], [address] Urea nitrogen [Mass/Vol] 13 mg/dL Normal 7-18 [facility] Comment on above: Performed By: #### L 500.2500, L501.5200, L501.2300, L100.0100 ####[facility] [address] [place], [address] CBC W/Diff, Automatedon - Anisocytosis Ql (Bld) 2+ Normal [facility] Comment on above: Performed By: #### L 500.2500, L501.5200, L501.2300, L100.0100 ####[facility] [address] [place], [address] MACROCYTOSIS 1+ Normal [facility] Comment on above: Performed By: #### L 500.2500, L501.5200, L501.2300, L100.0100 ####[facility] [address] [place], [address] PLT EST MOD DEC Normal ADEQ [facility] Comment on above: Performed By: #### L 500.2500, L501.5200, L501.2300, L100.0100 ####[facility] [address] [place], [address] Magnesiumon 05-24-2024 Magnesium [Mass/Vol] 1.8 mg/dL Normal 1.6-2.6 [facility] Comment on above: Performed By: #### L 500.2500, L501.5200, L501.2300, L100.0100 ####[facility] [address] [place], [address] Phosphoruson 05-24-2024 Phosphate [Mass/Vol] 2.9 mg/dL Normal 2.5-4.9 [facility] Comment on above: Performed By: #### L 500.2500, L501.5200, L501.2300, L100.0100 ####[facility] [address] [place], [address] Urine Cultureon 05-24-2024 URC Normal [facility] Comment on above: Performed By: #### M 100.2200 ####[facility] [address] [place], [address] Basic Metabolic Profile (BMP )on 05-23-2024 BUN/CRE 19.7 RATIO Normal 10-20 [facility] Comment on above: Performed By: #### L 100.0100, L501.9520, L500.2500 ####[facility] [address] [place], [address] CA,Total 8.3 mg/dL Low 8.5-10.1 [facility] Comment on above: Performed By: #### L 100.0100, L501.9520, L500.2500 ####[facility] [address] [place], [address] Chloride [Moles/Vol] 110 mmol/L High 98-107 [facility] Comment on above: Performed By: #### L 100.0100, L501.9520, L500.2500 ####[facility] [address] [place], [address] CO2 [Moles/Vol] 25.0 mmol/L Normal 21.0-32.0 [facility] Comment on above: Performed By: #### L 100.0100, L501.9520, L500.2500 ####[facility] [address] [place], [address] Creatinine [Mass/Vol] 0.76 mg/dL Normal 0.55-1.02 [facility] Comment on above: Result Comment: The validity of the calculated GFR GFRAA in patients over70 years has not been determined. Clinical correlation isessential. Performed By: #### L 100.0100, L501.9520, L500.2500 ####[facility] [address] [place], [address] ECRCL 48.34 ml/min Normal [facility] Comment on above: Performed By: #### L 100.0100, L501.9520, L500.2500 ####[facility] [address] [place], [address] EST GFR - AA 97 mL/min Normal >60 [facility] Comment on above: Result Comment: Afri can [place] GFR Calc Performed By: #### L 100.0100, L501.9520, L500.2500 ####[facility] [address] [place], [address] GAP 3 Low 5-15 [facility] Comment on above: Performed By: #### L 100.0100, L501.9520, L500.2500 ####[facility] [address] [place], [address] GFR/1.73 sq M.predicted among non-blacks MDRD (S/P/Bld) [Vol rate/Area] 80 mL/min/{1.73_m2} Normal >60 [facility] Comment on above: Result Comment: Non- GFR Calc Performed By: #### L 100.0100, L501.9520, L500.2500 ####[facility] [address] [place], [address] Glucose [Mass/Vol] 92 mg/dL Normal 74-106 [facility] Comment on above: Performed By: #### L 100.0100, L501.9520, L500.2500 ####[facility] [address] [place], [address] Potassium [Moles/Vol] 3.8 mmol/L Normal 3.5-5.1 [facility] Comment on above: Performed By: #### L 100.0100, L501.9520, L500.2500 ####[facility] [address] [place], [address] Sodium [Moles/Vol] 138 mmol/L Normal 136-145 [facility] Comment on above: Performed By: #### L 100.0100, L501.9520, L500.2500 ####[facility] [address] [place], [address] Urea nitrogen [Mass/Vol] 15 mg/dL Normal 7-18 [facility] Comment on above: Performed By: #### L 100.0100, L501.9520, L500.2500 ####[facility] [address] [place], [address] CBC W/Diff, Automatedon - Anisocytosis Ql (Bld) RARE Normal [facility] Comment on above: Performed By: #### L 100.0100, L501.9520, L500.2500 ####[facility] [address] [place], [address] Thyroid Stim Hormone (TSH)on 05-23-2024 TSH 34.800 uIU/mL High 0.358-3.740 [facility] Comment on above: Performed By: #### L 100.0100, L501.9520, L500.2500 ####[facility] [address] [place], [address] 12 Lead EKGon 05-22-2024 12 Lead EKG Normal [facility] Alcohol, Blood (Medical)-Ser umon 05-22-2024 SERUM ETOH < 3.0 Normal [facility] Comment on above: Result Comment: The serum:whole blood ethanol ratio is approximately 1.14and varies slightly with hematocrit.Medical Alcohol reference interval and critical value innon-tolerant individuals; 50 - 100 Impairment 100 Intoxication 100 - 250 Severe Poisoning 250 - 400 Deep/possible fatal coma Performed By: #### L 505.5000, L501.9100, L100.0100, L500.4050 ####[facility] [address] [place], [address] Brain/Head without Contrasto n 05-22-2024 Brain/Head without Contrast Normal [facility] CBC W/Diff, Automatedon 04-28 TARGET CELLS RARE Normal [facility] Comment on above: Performed By: #### L 505.5000, L501.9100, L100.0100, L500.4050 ####[facility] [address] [place], [address] Anisocytosis Ql (Bld) 3+ Normal [facility] Comment on above: Performed By: #### L 505.5000, L501.9100, L100.0100, L500.4050 ####[facility] [address] [place], [address] MACROCYTOSIS 1+ Normal [facility] Comment on above: Performed By: #### L 505.5000, L501.9100, L100.0100, L500.4050 ####[facility] [address] [place], [address] MICROCYTIC 1+ Normal [facility] Comment on above: Performed By: #### L 505.5000, L501.9100, L100.0100, L500.4050 ####[facility] [address] [place], [address] PLT EST MOD INC Normal ADEQ [facility] Comment on above: Performed By: #### L 505.5000, L501.9100, L100.0100, L500.4050 ####[facility] [address] [place], [address] SMEAR COMMENT SCANNED Normal [facility] Comment on above: Performed By: #### L 505.5000, L501.9100, L100.0100, L500.4050 ####[facility] [address] [place], [address] Chest 1 View (Portable)on Chest 1 View (Portable) Normal W [facility] Comprehensive Metabolic Prof ilon 05-22-2024 Albumin [Mass/Vol] 2.9 g/dL Low 3.2-5.0 [facility] Comment on above: Performed By: #### L 505.5000, L501.9100, L100.0100, L500.4050 ####[facility] [address] [place], [address] Albumin/Globulin [Mass ratio] 0.7 {ratio} Low 0.9-2.4 [facility] Comment on above: Performed By: #### L 505.5000, L501.9100, L100.0100, L500.4050 ####[facility] [address] [place], [address] ALK P 83 U/L Normal 45-117 [facility] Comment on above: Performed By: #### L 505.5000, L501.9100, L100.0100, L500.4050 ####[facility] [address] [place], [address] ALT [Catalytic activity/Vol] 19 U/L Normal 13-56 [facility] Comment on above: Performed By: #### L 505.5000, L501.9100, L100.0100, L500.4050 ####[facility] [address] [place], [address] AST [Catalytic activity/Vol] 17 U/L Normal 15-37 [facility] Comment on above: Performed By: #### L 505.5000, L501.9100, L100.0100, L500.4050 ####[facility] [address] [place], [address] Bilirubin [Mass/Vol] 0.30 mg/dL Normal 0.20-1.00 [facility] Comment on above: Result Comment: For patients on eltrombopag therapy, use of Dimension Thurmond TBIL is not recommended. Performed By: #### L 505.5000, L501.9100, L100.0100, L500.4050 ####[facility] [address] [place], [address] BUN/CRE 17.1 RATIO Normal 10-20 [facility] Comment on above: Performed By: #### L 505.5000, L501.9100, L100.0100, L500.4050 ####[facility] [address] [place], [address] CA,Total 9.2 mg/dL Normal 8.5-10.1 [facility] Comment on above: Performed By: #### L 505.5000, L501.9100, L100.0100, L500.4050 ####[facility] [address] [place], [address] Chloride [Moles/Vol] 105 mmol/L Normal 98-107 [facility] Comment on above: Performed By: #### L 505.5000, L501.9100, L100.0100, L500.4050 ####[facility] [address] [place], [address] CO2 [Moles/Vol] 28.0 mmol/L Normal 21.0-32.0 [facility] Comment on above: Performed By: #### L 505.5000, L501.9100, L100.0100, L500.4050 ####[facility] [address] [place], [address] Creatinine [Mass/Vol] 0.94 mg/dL Normal 0.55-1.02 [facility] Comment on above: Result Comment: The validity of the calculated GFR GFRAA in patients over70 years has not been determined. Clinical correlation isessential. Performed By: #### L 505.5000, L501.9100, L100.0100, L500.4050 ####[facility] [address] [place], [address] ECRCL 41.14 ml/min Normal [facility] Comment on above: Performed By: #### L 505.5000, L501.9100, L100.0100, L500.4050 ####[facility] [address] [place], [address] EST GFR - AA 76 mL/min Normal >60 [facility] Comment on above: Result Comment: Afri can [place] GFR Calc Performed By: #### L 505.5000, L501.9100, L100.0100, L500.4050 ####[facility] [address] [place], [address] GAP 7 Normal 5-15 [facility] [facility] Comment on above: Performed By: #### L 505.5000, L501.9100, L100.0100, L500.4050 ####[facility] [address] [place], [address] GFR/1.73 sq M.predicted among non-blacks MDRD (S/P/Bld) [Vol rate/Area] 63 mL/min/{1.73_m2} Normal >60 [facility] Comment on above: Result Comment: Non- GFR Calc Performed By: #### L 505.5000, L501.9100, L100.0100, L500.4050 ####[facility] [address] [place], [address] Globulin (S) [Mass/Vol] 4.4 g/dL High 2.2-4.2 [facility] Comment on above: Performed By: #### L 505.5000, L501.9100, L100.0100, L500.4050 ####[facility] [address] [place], [address] Glucose [Mass/Vol] 132 mg/dL High 74-106 [facility] Comment on above: Result Comment: Fast ing Glucose result greater than or equal to 126 mg/dLsuggests DIABETES MELLITUS per A.D.A. criteria. Performed By: #### L 505.5000, L501.9100, L100.0100, L500.4050 ####[facility] [address] [place], [address] Potassium [Moles/Vol] 3.1 mmol/L Low 3.5-5.1 [facility] Comment on above: Performed By: #### L 505.5000, L501.9100, L100.0100, L500.4050 ####[facility] [address] [place], [address] Sodium [Moles/Vol] 141 mmol/L Normal 136-145 [facility] Comment on above: Performed By: #### L 505.5000, L501.9100, L100.0100, L500.4050 ####[facility] [address] [place], [address] T PROT 7.3 g/dL Normal 6.4-8.2 [facility] Comment on above: Performed By: #### L 505.5000, L501.9100, L100.0100, L500.4050 ####[facility] [address] [place], [address] Urea nitrogen [Mass/Vol] 16 mg/dL Normal 7-18 [facility] Comment on above: Performed By: #### L 505.5000, L501.9100, L100.0100, L500.4050 ####[facility] [address] [place], [address] Emergency Department Summary on 05-22-2024 Emergency Department Summary Normal [facility] H AND P Exam - Hospitaliston 05-22-2024 H&P Exam - Hospitalist Normal [facility] Urinalysis, Completeon 05-22 BACTERIA 2+ /hpf Normal None Seen [facility] Comment on above: Order Comment: CLAUDIA TER SPECIMEN Performed By: #### L 400.0001 ####[facility] [address] [place], [address] EPI,SQUAMOUS 0-5 SEEN Normal 5-10 [facility] Comment on above: Order Comment: CLAUDIA TER SPECIMEN Performed By: #### L 400.0001 ####[facility] [address] [place], [address] RBC 0-5 SEEN Normal 0-5 [facility] Comment on above: Order Comment: CLAUDIA TER SPECIMEN Performed By: #### L 400.0001 ####[facility] [address] [place], [address] WBC 5-10 SEEN Normal 0-5 [facility] Comment on above: Order Comment: CLAUDIA TER SPECIMEN Performed By: #### L 400.0001 ####[facility] [address] [place], [address] Mucus Ql (Urine sed) 0 SEEN Normal [facility] Comment on above: Order Comment: CLAUDIA TER SPECIMEN Performed By: #### L 400.0001 ####[facility] [address] [place], [address] Urine Drug Screen (VISTA)on 05-22-2024 AMPHETAMINES Negative Normal <1000 ng/mL [facility] Comment on above: Performed By: #### L 505.5000, L501.9100, L100.0100, L500.4050 ####[facility] [address] [place], [address] BARBITIURATES Negative Normal < 200 ng/mL [facility] Comment on above: Performed By: #### L 505.5000, L501.9100, L100.0100, L500.4050 ####[facility] [address] [place], [address] BENZODIAZIPINE Negative Normal < 200 ng/mL [facility] Comment on above: Performed By: #### L 505.5000, L501.9100, L100.0100, L500.4050 ####[facility] [address] [place], [address] COCAINE Negative Normal < 300 ng/mL [facility] Comment on above: Performed By: #### L 505.5000, L501.9100, L100.0100, L500.4050 ####[facility] [address] [place], [address] ECSTACY Negative Normal < 500 ng/mL [facility] Comment on above: Performed By: #### L 505.5000, L501.9100, L100.0100, L500.4050 ####[facility] [address] [place], [address] METHADONE Negative Normal < 300 ng/mL [facility] Comment on above: Performed By: #### L 505.5000, L501.9100, L100.0100, L500.4050 ####[facility] [address] [place], [address] OPIATES Positive Abnormal < 300 ng/mL [facility] Comment on above: Performed By: #### L 505.5000, L501.9100, L100.0100, L500.4050 ####[facility] [address] [place], [address] PCP Negative Normal < 25 ng/mL [facility] Comment on above: Performed By: #### L 505.5000, L501.9100, L100.0100, L500.4050 ####[facility] [address] [place], [address] THC Negative Normal < 50 ng/mL [facility] Comment on above: Performed By: #### L 505.5000, L501.9100, L100.0100, L500.4050 ####[facility] [address] [place], [address] VISTA UDS PH 5 Normal [facility] Comment on above: Performed By: #### L 505.5000, L501.9100, L100.0100, L500.4050 ####[facility] [address] [place], [address] Venous Blood Gason 5 Blood Gas Type CHANTEL Normal [facility] Comment on above: Performed By: #### L 9000.0810 ####[facility] [address] [place], [address] CO2 [Moles/Vol] 29 mmol/L Normal 23-33 [facility] Comment on above: Performed By: #### L 0.0810 ####[facility] [address] [place], [address] FI02 3.0 Normal [facility] Comment on above: Performed By: #### L 9000.0810 ####[facility] [address] [place], [address] HCO3 (Bld) [Moles/Vol] 27 mmol/L High 22-26 [facility] Comment on above: Performed By: #### L 9000.0810 ####[facility] [address] [place], [address] O2 Delivery Dev Cannula Normal [facility] Comment on above: Performed By: #### L 9000.0810 ####[facility] [address] [place], [address] [facility] Comment on above: Performed By: #### L 0.0810 ####[facility] [address] [place], [address] VBG BE 2 mmol/L Normal -1.0-3.5 [facility] Comment on above: Performed By: #### L 9000.0810 ####[facility] [address] [place], [address] VBG pCO2 48.5 mmHg Normal 41-51 [facility] Comment on above: Performed By: #### L 9000.0810 ####[facility] [address] [place], [address] VBG pH 7.36 Normal 7.32-7.42 [facility] Comment on above: Performed By: #### L 9000.0810 ####[facility] [address] [place], [address] VBG PO2 32 mmHg Normal 25-40 [facility] Comment on above: Performed By: #### L 9000.0810 ####[facility] [address] [place], [address] VBG SO2 58 Normal 50-70 [facility] Comment on above: Performed By: #### L 9000.0810 ####[facility] [address] [place], [address] 12 Lead EKGon 05-19-2024 12 Lead EKG Normal [facility] Basic Metabolic Profile (BMP )on 05-19-2024 BUN/CRE 19.3 RATIO Normal 10-20 [facility] Comment on above: Order Comment: 'TROP ' Serial specimen #1, #2 or #3: 1 Performed By: #### L 501.4020, L500.2500, L100.0100 ####[facility] [address] [place], [address] CA,Total 9.4 mg/dL Normal 8.5-10.1 [facility] Comment on above: Order Comment: 'TROP ' Serial specimen #1, #2 or #3: 1 Performed By: #### L 501.4020, L500.2500, L100.0100 ####[facility] [address] [place], [address] Chloride [Moles/Vol] 106 mmol/L Normal 98-107 [facility] Comment on above: Order Comment: 'TROP ' Serial specimen #1, #2 or #3: 1 Performed By: #### L 501.4020, L500.2500, L100.0100 ####[facility] [address] [place], [address] CO2 [Moles/Vol] 26.0 mmol/L Normal 21.0-32.0 [facility] Comment on above: Order Comment: 'TROP ' Serial specimen #1, #2 or #3: 1 Performed By: #### L 501.4020, L500.2500, L100.0100 ####[facility] [address] [place], [address] Creatinine [Mass/Vol] 0.73 mg/dL Normal 0.55-1.02 [facility] Comment on above: Order Comment: 'TROP ' Serial specimen #1, #2 or #3: 1 Result Comment: The validity of the calculated GFR GFRAA in patients over70 years has not been determined. Clinical correlation isessential. Performed By: #### L 501.4020, L500.2500, L100.0100 ####[facility] [address] [place], [address] ECRCL 48.34 ml/min Normal [facility] Comment on above: Order Comment: 'TROP ' Serial specimen #1, #2 or #3: 1 Performed By: #### L 501.4020, L500.2500, L100.0100 ####[facility] [address] [place], [address] EST GFR - AA 102 mL/min Normal >60 [facility] Comment on above: Order Comment: 'TROP ' Serial specimen #1, #2 or #3: 1 Result Comment: Afri can [place] GFR Calc Performed By: #### L 501.4020, L500.2500, L100.0100 ####[facility] [address] [place], [address] GAP 6 Normal 5-15 [facility] Comment on above: Order Comment: 'TROP ' Serial specimen #1, #2 or #3: 1 Performed By: #### L 501.4020, L500.2500, L100.0100 ####[facility] [address] [place], [address] GFR/1.73 sq M.predicted among non-blacks MDRD (S/P/Bld) [Vol rate/Area] 85 mL/min/{1.73_m2} Normal >60 [facility] Comment on above: Order Comment: 'TROP ' Serial specimen #1, #2 or #3: 1 Result Comment: Non- GFR Calc Performed By: #### L 501.4020, L500.2500, L100.0100 ####[facility] [address] [place], [address] Glucose [Mass/Vol] 118 mg/dL High 74-106 [facility] Comment on above: Order Comment: 'TROP ' Serial specimen #1, #2 or #3: 1 Result Comment: Fast ing Glucose result from 100 to 125 mg/dLsuggests IMPAIRED HOMEOSTASIS per A.D.A. criteria. Performed By: #### L 501.4020, L500.2500, L100.0100 ####[facility] [address] [place], [address] Potassium [Moles/Vol] 3.6 mmol/L Normal 3.5-5.1 [facility] Comment on above: Order Comment: 'TROP ' Serial specimen #1, #2 or #3: 1 Performed By: #### L 501.4020, L500.2500, L100.0100 ####[facility] [address] [place], [address] Sodium [Moles/Vol] 138 mmol/L Normal 136-145 [facility] Comment on above: Order Comment: 'TROP ' Serial specimen #1, #2 or #3: 1 Performed By: #### L 501.4020, L500.2500, L100.0100 ####[facility] [address] [place], [address] Urea nitrogen [Mass/Vol] 14 mg/dL Normal 7-18 [facility] Comment on above: Order Comment: 'TROP ' Serial specimen #1, #2 or #3: 1 Performed By: #### L 501.4020, L500.2500, L100.0100 ####[facility] [address] [place], [address] CBC W/Diff, Automatedon 04-28 HYPOCHROMASIA 1+ Normal [facility] Comment on above: Performed By: #### L 501.4020, L500.2500, L100.0100 ####[facility] [address] [place], [address] Anisocytosis Ql (Bld) 2+ Normal [facility] Comment on above: Performed By: #### L 501.4020, L500.2500, L100.0100 ####[facility] [address] [place], [address] SMEAR COMMENT SCANNED Normal [facility] Comment on above: Performed By: #### L 501.4020, L500.2500, L100.0100 ####[facility] [address] [place], [address] Chest PA and Lateralon 05-19 Chest PA and Lateral Normal [facility] Emergency Department Summary on 05-19-2024 Emergency Department Summary Normal [facility] L501.4020on 05-19-2024 TROPONIN-I HS 19 pg/mL Normal 3.0-54.0 [facility] Comment on above: Order Comment: 'TROP ' Serial specimen #1, #2 or #3: 1 Result Comment: Plea se Note: New Test Units and Gender Specific Reference Ranges. For more information see Policy Stat Procedure [place] High Sensitivity Troponin (TNIH) and attachments. Performed By: #### L 501.4020, L500.2500, L100.0100 ####[facility] [address] [place], [address] M100.678on 05-19-2024 M100.678 Pending SARS-CoV-2 (COVID 19) Negative INFLUENZA A Negative INFLUENZA B Negative RSV PCR Negative Normal [facility] Comment on above: Performed By: #### M 100.678 ####[facility] [address] [place], [address] Basic metabolic 2000 panelon 05-13-2024 Anion gap [Moles/Vol] 8 mmol/L Normal 8-15 [facility] Comment on above: Order Comment: Speci men Type: BLOOD SPECIMEN [facility] Address: [address] [place] [address] Performed By: #### 2 4321-2, #### [facility] CL[facility] [id number] [address] [place] [address] [place] Calcium [Mass/Vol] 8.3 mg/dL Low 8.5-10.2 [facility] Comment on above: Order Comment: Speci men Type: BLOOD SPECIMEN [facility]ing Facility: [facility] Address: [address] [place] [address] Performed By: #### 2 4321-2, #### [facility] CLIA [id number] [address] [place] [address] [place] Chloride [Moles/Vol] 102 mmol/L Normal 98-107 [facility] Comment on above: Order Comment: Speci men Type: BLOOD SPECIMEN [facility]ing [facility]: [facility] Address: [address] [place] [address] Performed By: #### 2 432-2, #### [facility] CLIA [id number] [address] [place] [address] [place] CO2 [Moles/Vol] 27 mmol/L Normal 22-30 [facility] Comment on above: Order Comment: Speci men Type: BLOOD SPECIMEN [facility]ing [facility]: [facility] Address: [address] [place] [address] Performed By: #### 2 4320-2, #### [facility] CLIA [id number] [address] [place] [address] [place] Creatinine [Mass/Vol] 0.57 mg/dL Low 0.58-0.96 [facility] Comment on above: Order Comment: Speci men Type: BLOOD SPECIMEN [facility]ing Facility: [facility] Address: [address] [place] [address] Performed By: #### 2 4320-05, #### [facility] CLIA [id number] [address] [place] [address] [place] [facility] Creatinine and Glomerular filtration rate.predicted panel (S/P/Bld) 99 mL/min/1.73m??? Normal >=60 [facility] Comment on above: Order Comment: Speci men Type: BLOOD SPECIMEN [facility]ing Facility: [facility] Address: [address] [place] [address] Result Comment: Niurka mated Glomerular Filtration Rate (eGFR) is calculated using the 2020 CKD-EPI creatinine equation. This equation utilizes serum creatinine, sex, and age as parameters. The creatinine assay has traceable calibration to isotope dilution-mass spectrometry. Refer to KDIGO guidelines for clinical interpretation. In patients with unstable renal function, e.g. those with acute kidney injury, the eGFR may not accurately reflect actual GFR. Performed By: #### 2 4320-2, #### [facility] CLIA [id number] [address] [place] [address] [place] Glucose [Mass/Vol] 90 mg/dL Normal 74-99 [facility] Comment on above: Order Comment: Melissa rouse Type: BLOOD SPECIMEN [facility]ing [facility]: [facility] Address: [address] [place] [address] Result Comment: The [place] Diabetes Association (ADA) provides guidance for cutoff values for fasting glucose and random glucose. The ADA defines fasting as no caloric intake for at least 8 hours. Fasting plasma glucose results between 100 to 125 mg/dL indicate increased risk for diabetes (prediabetes). Fasting plasma glucose results greater than or equal to 126 mg/dL meet the criteria for diagnosis of diabetes. In the absence of unequivocal hyperglycemia, results should be confirmed by repeat testing. In a patient with classic symptoms of hyperglycemia or hyperglycemic crisis, random plasma glucose results greater than or equal to 200 mg/dL meet the criteria for diagnosis of diabetes. Reference: Standards of Medical Care in Diabetes 2016, [place] Diabetes Association. Diabetes Care. 2016.39(Suppl 1). Performed By: #### 2 1-, #### [facility] CLIA [id number] [address] [place] [address] [place] Potassium [Moles/Vol] 3.8 mmol/L Normal 3.7-5.1 [facility] Comment on above: Order Comment: Melissa rouse Type: BLOOD SPECIMEN [facility] Address: [address] [place] [address] Performed By: #### 2 4320-05, #### [facility] CLIA [id number] [address] [place] [address] [place] Sodium [Moles/Vol] 137 mmol/L Normal 136-144 [facility] Comment on above: Order Comment: Melissa rouse Type: BLOOD SPECIMEN [facility]ing [facility] Address: [address] [place] [address] Performed By: #### 2 4320-05, #### [facility] CLIA [id number] [address] [place] [address] [place] Urea nitrogen [Mass/Vol] 14 mg/dL Normal 7-21 [facility] Comment on above: Order Comment: Melissa rouse Type: BLOOD SPECIMEN [facility] Facility[facility] Address: [address] [place] [address] Performed By: #### 2 4321-2, 54269-1 #### [facility] CLIA [id number] [address] [place] [address] [facility] OF [place] CBC panel Auto (Bld)on 05-13 Erythrocyte distribution width (RBC) [Ratio] 20.0 % High 11.5-15.0 [facility] Comment on above: Order Comment: Speci men Type: BLOOD SPECIMEN [facility] Address: [address] [place] [address] Performed By: #### 5 8410-2 #### [facility] CLIA [id number] [address] [place], [place] [id number] [place] Hematocrit (Bld) [Volume fraction] 28.7 % Low 36.0-46.0 [facility] Comment on above: Order Comment: Speci men Type: BLOOD SPECIMEN [facility] Address: [address] [place] [address] Performed By: #### 5 8410-2 #### [facility] CLIA [id number] [address] [place] [address] [facility] OF [place] Hemoglobin (Bld) [Mass/Vol] 8.6 g/dL Low 11.5-15.5 [facility] Comment on above: Order Comment: Speci men Type: BLOOD SPECIMEN [facility] Address: [address] [place] [address] Performed By: #### 5 8410-2 #### [facility] CLIA [id number] [address] [place] [address] [place] MCH (RBC) [Entitic mass] 25.4 pg Low 26.0-34.0 [facility] Comment on above: Order Comment: Speci men Type: BLOOD SPECIMEN [facility] Address: [address] [place] [address] Performed By: #### 5 8410-2 #### [facility] CLIA [id number] [address] [place] [address] [place] MCHC (RBC) [Mass/Vol] 30.0 g/dL Low 30.5-36.0 [facility] Comment on above: Order Comment: Speci men Type: BLOOD SPECIMEN [facility] Address: [address] [place] [address] Performed By: #### 5 8410-2 #### [facility] CLIA [id number] [address] [place], [place] [id number] [place] [address] [place] MCV (RBC) [Entitic vol] 84.7 fL Normal 80.0-100.0 [facility] Comment on above: Order Comment: Speci men Type: BLOOD SPECIMEN [facility] Address: [address] [place] [address] Performed By: #### 5 8410-2 #### [facility] CLIA [id number] [address] [place] Platelet mean volume (Bld) [Entitic vol] 9.2 fL Normal 9.0-12.7 [facility] Comment on above: Order Comment: Speci men Type: BLOOD SPECIMEN [facility] Address: [address] [place] [address] Performed By: #### 5 8410-2 #### [facility] CLIA [id number] [address] [place], [place] [id number] [place] [address] [place] Platelets (Bld) [#/Vol] 495 10*3/uL High 150-400 [facility] Comment on above: Order Comment: Speci men Type: BLOOD SPECIMEN [facility] Address: [address] [place] [address] Performed By: #### 5 8410-2 #### [facility] CLIA [id number] [address] [place], [place] [id number] [place] [address] [place] RBC (Bld) [#/Vol] 3.39 10*6/uL Low 3.90-5.20 [facility] Comment on above: Order Comment: Speci men Type: BLOOD SPECIMEN [facility] Address: [address] [place] [address] Performed By: #### 5 8410-2 #### [facility] CLIA [id number] [address] [place] [address] [facility] OF [place] WBC (Bld) [#/Vol] 11.79 10*3/uL High 3.70-11.00 [facility] Comment on above: Order Comment: Speci men Type: BLOOD SPECIMEN [facility] Address: [address] [place] [id number] Performed By: #### 5 8410-2 #### [facility] CLIA [id number] [address] [place] [address] [facility] CNDSon 05-13-2024 CNDS HNO ID: [id number] Author: SAE NAVARRO MD Service: Hospital Medicine Author Type: Nurse Practitioner Type: Discharge Summary Filed: 05/26/2024 14:28 Note Text: -------- Attestation signed by Sae Navarro MD at 05/26/2024 2:28 PM I have reviewed the DC summary and agree with all the outlined elements. Sae Navarro MD -------- DISCHARGE SUMMARY PATIENT NAME: Codi Blank ADMISSION DATE: 05/12/2024 DISCHARGE DATE: 05/13/2024 ATTENDING PHYSICIAN: Sae Navarro,* Code Status: Full Code Highest Readmission Risk Score: 29 The 30 day readmissions risk score is derived from an internally validated risk model which evaluates patient level characteristics, utilization history, medication orders and lab results up until the day of discharge. Patients with a score of 40 or above are considered highest risk for readmission. Specific patient level drivers will be listed at the bottom of the summary. CONSULTING TEAMS DURING HOSPITALIZATION: None Treatment Team: Attending Provider: Sae Navarro MD REASON FOR HOSPITALIZATION: generalized weakness DIAGNOSIS: Principal Problem: Generalized weakness (POA: Yes) Active Problems: Frequent falls (POA: Yes) Anemia (POA: Yes) History of CVA (cerebrovascular accident) (POA: Yes) Chronic respiratory failure with hypoxia (HCC) (POA: Yes) History of coronary artery stent placement (POA: Yes) Gastroesophageal reflux disease (POA: Yes) Diastolic congestive heart failure (HCC) (POA: Yes) Chronic pain (POA: Yes) Fibromyalgia (POA: Yes) Below-knee amputation (HCC) (POA: Yes) Hypothyroidism (POA: Yes) Generalized anxiety disorder (POA: Yes) Resolved Problems: * No resolved hospital problems. * OPERATIONS DURING HOSPITALIZATION: None PROCEDURES DURING HOSPITALIZATION: No procedures performed HOSPITAL COURSE: 68 year old female with PMH of CVA, CAD, hypothyroid, s/p right BKA, HTN, GERD, depression, COPD, Chronic Respiratory Failure (4 L NC), asthma, fibromyalgia, chronic pain (ketamine infusion clinic), and anxiety, presented to [facility] on 05/12/2024 for evaluation of generalized weakness. The patient reported a recent 12 day hospitalization at [facility] from 04/27/24 - 05/09/2024 for COVID/pneumonia. The patient reports that she was not offered therapy while in the hospital and upon discharge, she was unable to care for herself at home. She reports baseline oxygen requirement of 4 L and denies any new respiratory complaints. Workup in the ED revealed mild tachycardia and leukocytosis of 18k. UA + yeast. CXR with mild blunting of both costophrenic angles similar in appearance to prior chest x-rays may represent small pleural effusions and/or pleural thickening. Patient was admitted to [facility] for further management of generalized weakness. WBC trended down. Urine cx contaminated. PT/OT recommended SNF, thus plans to transition to rehab status on 05/14/2024 as long as BP remained stable. Noted to have mild hypotension on 05/13/2024; lasix held and patient received IVF. On 05/13/2024, patient got up to power wheelchair and demanded to leave AMA. Many attempts from nursing to comfort patient. This provider personally spoke with patient about POC with plans to start rehab tomorrow. Patient verbalized understanding, but still requested to leave AMA and hung up the phone. Per nursing, patient and aware that home care services cannot be initiated with patient leaving AMA. - recommend holding lasix and resuming on 05/15/2024. Continue to monitor BP and report readings to PCP. - patient left [facility] AMA on 05/13/2024. Transitions of Care Critical Issues: - LEFT AMA LABS AND PROCEDURES PENDING AT DISCHARGE: No pending results. PATIENT CONDITION AT DISCHARGE: Fair DISCHARGE DISPOSITION: Against Medical Advice-- personally spoke with patient via telephone and answered all questions. Patient verbalized understanding of leaving AMA and then proceeded to hang up on provider. Discharge Physical Exam: VITAL SIGNS: BP 109/58 Pulse 74 Temp 36.4 ?C (97.6 ?F) (Temporal) Resp 16 Ht 147.3 cm (4' 10) Wt 48.6 kg (107 lb 2.3 oz) SpO2 97% BMI 22.39 kg/m? - unable to perform as this provider was not physically in building at time of discharge INFORMATION PROVIDED TO PATIENT: AVS to be printed by nursing ALLERGIES Allergen Reactions Adhesive Tape (Madisyn* REDNESS Ambien [Zolpidem] Mental Status Change Biaxin [Clarithromy* Hives, Itching Patient states she has previously tolerated a Z-pack, but states they have to do it twice for it to work Ceclor [Cefaclor] Hives, Itching Doxycycline Hives, Itching Penicillins Hives, Itching Sulfa Drugs [Sulfa * Hives, Itching DISCHARGE MEDICATION: Medi (more content not included)... Normal [facility] Magnesium SerPl-mCncon 05-13 Magnesium [Mass/Vol] 1.9 mg/dL Normal 1.7-2.3 [facility] Comment on above: Order Comment: Speci men Type: BLOOD SPECIMEN [facility]ing [facility] Address: [address] [id number] Performed By: #### 2 4321-2, 47926-8 #### [facility] CLIA [id number] [address] [place] [id number] [place] NURSING PROGon 05-13-2024 NURSING PROG HNO ID: [id number] Author: DEAN ROBLES LPN Service: ? Author Type: LICENSED NURSE Type: Nursing Progress Note Filed: 05/13/2024 20:22 Note Text: Patient observed in room self transferring to wheelchair from bed. Patient reminded of safety protocols put into effect for her safety. Patient became verbal with staff and began yelling, I am getting the hell out of here! Patient orientated to the fact that she was hooked up to an IV infusion that was actively running. Patient began yelling, Then I will take it out myself! Patient observed attempting multiple times to remove Ivs herself. Patient partially pulled the IV out. This nurse and the NOM removed IV for the patients safety and stopped active bleeding of site. Patient additional tried pulling subsequent IV. Patient's additional IV site removed for patient's safety. Attempts to reorient patient unsuccessful. Patient also removed her Oxygen and refused to put it back on. Normal [facility] SOCIAL WORKon 05-13-2024 SOCIAL WORK HNO ID: [id number] Author: CATRINA VINCENT LSW Service: Social Work Author Type: Interior Systems Carpenter Type: Social Work Filed: 05/13/2024 16:11 Note Text: -------- Summary: YAMILETH edwards -------- SOCIAL WORK PROGRESS NOTE Name: Codi Blank Patient denies any needs. Pleasant, quiet. Updated white board. 4:10 pm Phoned Forrest. He is agreeable to try to get approval for patient to stay for therapy. He denies any questions. Stated As long as you get her healed.... Told him SW will keep him posted re: insurance. Signature: TAO Adhikari Date: May 13, 2024 Time: 3:[address] [facility] THERAPY NTon 05-13-2024 THERAPY NT HNO ID: [id number] Author: ASIA EM OTR/Dani Service: Occupational Therapy Author Type: Occupational Therapist Type: Therapy (PT/OT/Speech/Resp) Filed: 05/13/2024 13:58 Note Text: Occupational Therapy Treatment Summary SERVICE DATE: 05/13/2024 SERVICE TIME: 1038 to 1105 ROOM: [place] [address] OT 6 Clicks Score: 18 DISCHARGE RECOMMENDATIONS Subacute/SNF Recommended Discharge Disposition Comments: Recommend SNF to increase her functional level and to return to [place]. Recommended Discharge Disposition Due to: Functional deficits requiring ongoing therapy service prior to discharge home., ADL impairment, Functional status decline, Anticipated community discharge Anticipated Discharge Needs: Physical Assist at Home Physical Assist at Home for: Cleaning, Laundry, Meals, Self Care, Safety, Shopping Supervision at Home due to: Decreased safety awareness, Impaired cognition (fall risk) ASSESSMENT Response to Therapy Interventions: Good Participation in Activities Patient seen this date for OT jae. Patient is as noted above. Patient reports that she is I with all her care at baseline. She does live with her who assists with IADLS. Patient is as noted and will benefit from continued OT tx to increase her LOF and safety in order to return to home. PRECAUTIONS Bed/Chair Alarm, Fall Risk, Other: See Comments, Lines/Tubes/Drains 4L O2 continuous, R BKA (does not wear prosthetic), w/c bound, fall risk, IVs CURRENT HOSPITAL COURSE Patient is a 68 year old female presenting from home to [facility] / OBS for dementia/ generalized weakness. CT head (-) for acute findings. CXR showing atelectasis, urinalysis showing some yeast. Labs + for elevated WBC count of 18 potentially from recent hospitalization/ thyroid. Recent hospitalization for RSV/ PNA. Prior RLE amputee BKA, at a w/c level. Patient now presents below baseline level of function, and is requesting to stay here for rehab to return to home setting at a mod I level. Relevant Past Medical History: CVA, CAD, hypothyroid, s/p right BKA, HTN, GERD, depression, COPD, and asthma HOME LIVING Patient Lives With: Spouse (who reportedly has cardiac issues) Assistance Available: PRN, Other: See Comment Comments: she has some assistance from her spouse Entry To Home: Ramp Number Of Stairs To Bed/Bath: 0 Tub/Shower Type: walk in shower with seat and grab bars Laundry: completes in basement Equipment Owned: Scooter- Power, Home Oxygen, Pulse Ox, Prosthetic, Wheelchair- Manual, BP Monitor, Shower Chair, Cane, Rollator PRIOR FUNCTIONAL LEVEL Required Assistance, History of Falls Assistance Required With: Cleaning, Laundry, Shopping, Transportation Patient reports Indep ADLs, has assist if needed, utilizes scooter for functional mobilty and is able to transfer indpendently to shower, toilet, bed and chair to and from scooter, shares IADLS with . Reports multiple falls in past 6 months, no serious injuries. On PRN home O2. (-) Driving. Baseline Cognition: Oriented to self, Oriented to place, Oriented to time, Oriented to situation SUBJECTIVE COGNITION Responsiveness: Alert, Awake Follows Commands: 2-step Commands THERAPY DIAGNOSIS Decreased activities of daily living (ADL), General symptoms and signs-other TREATMENT INTERVENTIONS Evaluation, Self Custodial Management (38870) Timed Code Treatment (minutes): 12 Skilled Treatment Time (minutes): 27 TRAINING AND EDUCATION PROVIDED Activity Adaptation/Compensatory Strategies, Command Following, Grooming Tasks, Role of Occupational Therapy, Precautions/Restrictions , Lower Extremity Dressing, Toileting , Standing Balance to Improve Glenn with ADLs/Self-Care THERAPEUTIC SKILLS USED Activity Dosing, Assessment of Tolerance Including Vitals Response to Activity, Cuing Tactile, Cuing Verbal, Cuing Visual, Physical Assist, Therapeutic Use of Self FUNCTIONAL STATUS Activities of Daily Living Assist Level Additional Information Feeding Set Up Grooming Set Up, Additional Information to brush teeth, wash face and brush hair Bathing Upper Body Set Up Bathing Lower Body Minimal Assistance Dressing Upper Body Set Up Dressing Lower Body Minimal Assistance, Additional Information needed some assistance to pull up depends after toileting Toileting Contact Guard Assistance, Additional Information for [place] [facility] [place] able to complete karuna care Mobility Assist Level Additional Information Bed Mobility Sit to Stand Contact Guard Assistance, Additional Information for sit to stand from [facility] [place] Stand to Sit Contact Guard Assistance, Additional Information to sit in wheelchair Bed to Chair Toilet/Commode Contact Guard Assistance, Additional Information for sit to stand from [facility] [place] Shower Functional Mobility GOALS Patient will demonstrate progress with self-care, cognitive and/or coping needs identified to allow safe discharge t (more content not included)... Normal [facility] THERAPY NT HNO ID: [id number] Author: YADIRA HIGGINBOTHAM PT Service: Physical Therapy Author Type: Physical Therapist Type: Therapy (PT/OT/Speech/Resp) Filed: 05/13/2024 10:09 Note Text: -------- Summary: PT OBS evaluation -------- Physical Therapy Evaluation Summary SERVICE DATE: 05/13/2024 SERVICE TIME: 929 to 953 ROOM: [place] [address] PT 6 Clicks Score: 16 DISCHARGE RECOMMENDATIONS Subacute/SNF Recommended Discharge Disposition Comments: Short term rehab followed by home health as able vs. SNF at [facility] pending ability of spouse/ private duty aides to care for her Recommended Discharge Disposition Due to: Functional deficits requiring ongoing therapy service prior to discharge home., Weakness less than 3/5 in lower extremity, Functional status decline Recommended Discharge Equipment: (TBD) ASSESSMENT Response to Therapy Interventions: Good Participation in Activities Patient is a 68 year old female presenting from home for generalized weakness/ dementia/ recent hospitalization for RSV/ PNA who presents as motivated to return to PLOF and home setting at an assisted living set up. Discussed options with patient including home health vs private duty aides, which patient reports she cannot afford. She is agreeable to HHPT/OT/aide since it would be covered by insurance, but she would like to stay here for short term rehab to facilitate return to PLOF. She reports limited, if any assist from spouse, and would need to be at a mod I level. Recommend short term rehab to faciltiate return to mod I level, though the concern is spouse is unable to assist patient, and patient can benefit from / supervision and assist due to fall risk. PRECAUTIONS Bed/Chair Alarm, Fall Risk, Other: See Comments, Lines/Tubes/Drains 4L O2 continuous, R BKA (does not wear prosthetic), w/c bound, fall risk, IVs CURRENT HOSPITAL COURSE Patient is a 68 year old female presenting from home to [facility] / OBS for dementia/ generalized weakness. CT head (-) for acute findings. CXR showing atelectasis, urinalysis showing some yeast. Labs + for elevated WBC count of 18 potentially from recent hospitalization/ thyroid. Recent hospitalization for RSV/ PNA. Prior RLE amputee BKA, at a w/c level. Patient now presents below baseline level of function, and is requesting to stay here for rehab to return to home setting at a mod I level. Relevant Past Medical History: CVA, CAD, hypothyroid, s/p right BKA, HTN, GERD, depression, COPD, and asthma HOME LIVING Patient Lives With: Spouse (Ranch home) Assistance Available: PRN (pt reports limited assist from spouse) Entry To Home: Ramp Number Of Stairs To Bed/Bath: 0 Tub/Shower Type: walk in shower with seat Laundry: completes in basement Equipment Owned: Scooter- Power, Home Oxygen, Pulse Ox, Prosthetic, Wheelchair- Manual, BP Monitor, Shower Chair, Cane, Rollator (regular flat nataly bed; has a prosthetic but does not use it) PRIOR FUNCTIONAL LEVEL Required Assistance, History of Falls Assistance Required With: Cleaning, Laundry, Meals, Medication Management, Safety, Shopping, Transportation Patient reports Indep ADLs, has assist if needed, utilizes scooter for functional mobilty and is able to transfer indpendently to shower, toilet, bed and chair to and from scooter, shares IADLS with . Reports multiple falls in past 6 months, no serious injuries. On PRN home O2. (-) Driving. SUBJECTIVE I was soaking my fingernails. They looked awful. I am a below knee amputee since 17. Agreeable to PT evaluation. THERAPY DIAGNOSIS Reduced mobility-other, Muscle Weakness (generalized) TREATMENT INTERVENTIONS Evaluation Skilled Treatment Time (minutes): 24 TRAINING AND EDUCATION PROVIDED Advanced Balance Activities, Anatomy and Impact on Deficits, Assistive Device Use, Bed Mobility, Discharge Planning, Disease Specific Education, Exercise Program, Expected Functional Level, Falls Prevention, Home Safety, Home Set-up/Modifications, Positioning, Skin Care and Infection Prevention Guidelines, Standing Balance, Transfers, Treatment Protocol, Wheelchair Use THERAPEUTIC SKILLS USED Activity Dosing, Assessment of Tolerance Including Vitals Response to Activity, Cues for Sequencing/Proper Technique for Activity, Cuing Tactile, Cuing Verbal, Cuing Visual, Facilitation of Joint Range of Motion,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 Cardiovascular: Negative for chest pain, palpitations and leg swelling. Gastrointestinal: Negative for abdominal pain, nausea and vomiting. Allergic/Immunologic: Negative for environmental allergies, food allergies and immunocompromised state. Psychiatric/Behavioral: Positive for confusion. The patient is not nervous/anxious. Physical Exam Vitals BP Pulse Temp Temp src Resp SpO2 Weight Height 05/12/24 0610 05/12/24 0610 05/12/24 0610 05/12/24 0610 05/12/24 0610 05/12/24 0629 05/12/24 0610 -- 128/67 (!) 103 36.1 ?C (96.9 ?F) Temporal Art 19 95 % 53.1 kg (117 lb) Physical Exam Vitals and nursing note reviewed. Exam conducted with a (more content not included)... Normal [facility] HIGH SENSITIVITY TROPONIN T (INITIAL)on 05-12-2024 Troponin T.cardiac High sensitivity method [Mass/Vol] 51 ng/L High <12 [facility] Comment on above: Order Comment: Speci men Type: BLOOD SPECIMEN [facility] Address: [address] [place] [address] Performed By: #### L [id number] #### [facility] CLIA [id number] [address] [place], [place] [id number] [place] [address] [place] HIGH SENSITIVITY TROPONIN T (SECOND)on 05-12-2024 Troponin T.cardiac High sensitivity method [Mass/Vol] 52 ng/L High <12 [facility] Comment on above: Order Comment: Speci men Type: BLOOD SPECIMEN [facility] Address: [address] [place] [address] Performed By: #### L [id number] #### [facility] CLIA [id number] [address] [place] [address] [place] HIGH SENSITIVITY TROPONIN T (THIRD) 3 HRS AFTER INITIALon 05-12-2024 Troponin T.cardiac High sensitivity method [Mass/Vol] 49 ng/L High <12 [facility] Comment on above: Order Comment: Speci men Type: BLOOD SPECIMEN [facility] Address: [address] [place] [address] Performed By: #### L [id number] #### [facility] CLIA [id number] [address] [place] [address] [place] HISTORY PHYSICALon HISTORY PHYSICAL HNO ID: [id number] Author: SAE NAVARRO MD Service: Hospital Medicine Author Type: Nurse Practitioner Type: H&P Filed: 05/13/2024 16:30 Note Text: -------- Attestation signed by Sae Navarro MD at 05/13/2024 4:30 PM I have reviewed the chart and data for this patient. Agree with the history and physical, outlined assessment and management plan. Sae Navarro MD -------- DEPARTMENT OF HOSPITAL MEDICINE HISTORY AND PHYSICAL EXAM SERVICE DATE: 05/12/2024 SERVICE TIME: 11:48 AM Primary Care Physician: Errol Michel, DO NIGHT AND WEEKEND COVERAGE: [facility] ERA 7 AM - 7 PM - Please use [employer] [id number] for overnight issues Subjective CHIEF COMPLAINT: Generalized weakness, recent hospitalization HPI: This is a 68 year old female with PMH of CVA, CAD, hypothyroid, s/p right BKA, HTN, GERD, depression, COPD, Chronic Respiratory Failure (4 L NC), asthma, fibromyalgia, chronic pain (ketamine infusion clinic), and anxiety, presented to [facility] ED on 05/12/2024 for evaluation of generalized weakness. The patient reports a recent 12 day hospitalization at [facility] from 04/27/24 - 05/09/2024 for COVID/pneumonia. The patient reports that she was not offered therapy while in the hospital and upon discharge, she was unable to care for herself at home. She reports baseline oxygen requirement of 4 L and denies any new respiratory complaints. She has a chronic cough and chronic REAGAN. Denies any chest pain or palpitations. No nausea or vomiting although she does endorse a reduced appetite. Denies any urinary symptoms. She has a history of chronic pain for which she is treated in a pain management clinic and received ketamine infusionsthrough . The patient is interested in rehab to get stronger so she can return home with her spouse. She is also thinking about ch[facility] plans to eventually go to a nursing facility. Work up in the ED: Mild tachycardia noted HR 102, otherwise HDS on chronic 4 L oxygen Labs significant for leukocytosis (WBCs 18) - patient endorses recent use of steroids while in the hospital UA with budding yeast CXR with mild blunting of both costophrenic angles similar in appearance to prior chest x-rays may represent small pleural effusions and/or pleural thickening CT brain no acute process EKG showing NSR without acute ischemia She received home dose ativan and metoprolol. She also received IV lasix 20mg x 1 and fluconazole 150mg x 1 She will be admitted to [facility] for PT/OT evaluations, possible rehab vs NH placement PAST MEDICAL HISTORY Diagnosis Date Arthritic-like pain Arthritis Asthma CAD (coronary artery disease) Cellulitis Chronic multifocal osteomyelitis (HCC) RIGHT ANKLE Chronic pain ON MORPHINE PUMP COPD (chronic obstructive pulmonary disease) ([facility]) CVA, old, alterations of sensations balance and memory Depression Dyslipidemia Expressive aphasia GERD (gastroesophageal reflux disease) HTN (hypertension) Hx of BKA, right (HCC) Hypothyroid Memory loss TX (myocardial infarction) ([facility]) 2010 Osteoporosis Sleep apnea Stomach ulcer bleeding had to pathc it up 2023 Stroke (HCC) TIA (transient ischemic attack) 2004 X3 PAST SURGICAL HISTORY Procedure Laterality Date AMPUTATION OF LOWER LEG Right 09/30/2017 R BKA ANESTHESIA KNEE, ARTHROSCOPIC Bilateral ANKLE RIGHT Right 10/04/2016 ORIF BACK SURGERY HX times three 2008 BUNIONECTOMY, LAPIDUS-TYPE with toe surgery CARPAL TUNNEL both hands twice HYSTERECTOMY HX 1969' IMPLANT INFUSION PUMP - PROGRAMMABLE 2008 IR VASCULAR ACCESS TEAM PICC INSERTION RADIO 10/08/2017 OATS - OPEN/UP TO 3 PLUGS just one plug PAST SURGICAL HISTORY OF Right 2014 GANGLION CYST PAST SURGICAL HISTORY OF IANDD RIGHT ANKLE SURGICAL WOUND S STIMULATOR NERVE 2007 SINUS SURGERY PROCEDURE STENT - CORONARY 2010 THYROIDECTOMY TOTAL/COMPLETE 1999 FAMILY HISTORY Problem Relation Age of Onset Asthma Father Coronary Artery Disease Father COPD Mother Diabetes Daughter Social History Tobacco Use Smoking status: Former Current packs/day: 0.50 Average packs/day: 0.5 packs/day for 20.0 years (10.0 ttl pk-yrs) Types: Cigarettes Smokeless tobacco: Never Vaping Use Vaping status: Never Used Substance Use Topics Alcohol use: No Drug use: No PRIOR TO ADMISSION MEDICATIONS: (Not in a hospital admission) ALLERGIES Allergen Reactions Adhesive Tape (Madisyn* REDNESS Biaxin [Clarithromy* Hives, Itching Patient states she has previously tolerated a Z-pack, but states they have to do it twice for it to work Ceclor [Cefaclor] Hives, Itching Doxycycline Hives, Itching Penicillins Hives, Itching Sulfa Drugs [Sulfa * Hives, Itching REVIEW OF SYSTEM: GENERA (more content not included)... Normal [facility] Magnesium SerPl-mCncon 05-12 Magnesium [Mass/Vol] 2.0 mg/dL Normal 1.7-2.3 [facility] Comment on above: Order Comment: Speci men Type: URINE SPECIMEN [facility] Address: [address] [place] [address] Performed By: #### 2 4356-8 #### [facility] CLIA [id number] [address] [place] [address] [place] #### 630-4 #### [facility] CLIA [id number] [address] [place] [address] [place] Urinalysis complete panel (U )on 05-12-2024 Bacteria LM.HPF (Urine sed) [#/Area] Rare Abnormal None Seen [facility] Comment on above: Order Comment: Speci men Type: URINE SPECIMEN [facility]ing [facility]: [facility] Address: [address] [place] [address] Performed By: #### 2 4356-8 #### [facility] CLIA [id number] [address] [place] [address] #### 630-4 #### [facility] CLIA [id number] [address] Bilirubin Ql (U) 1+ Abnormal Negative [facility] Comment on above: Order Comment: Speci men Type: URINE SPECIMEN [facility]ing Facility: [facility] Address: [address] [place] [address] Result Comment: Sugg est correlation with clinical findings and serum bilirubin if clinically indicated. Performed By: #### 2 4356-8 #### [facility] CLIA [id number] [address] [place] [address] #### 630-4 #### [facility] CLIA [id number] [address] Clarity (Unsp spec) Clear Normal Clear [facility] Comment on above: Order Comment: Speci men Type: URINE SPECIMEN [facility] Address: [address] [place] [address] Performed By: #### 2 4356-8 #### [facility] CLIA [id number] [address] [place] [address] #### 630-4 #### [facility] CLIA [id number] [address] Color (U) Yellow Normal Yellow [facility] Comment on above: Order Comment: Speci men Type: URINE SPECIMEN [facility]: [facility] Address: [address] [place] [address] Performed By: #### 2 4356-8 #### [facility] CLIA [id number] [address] [place] [address] #### 630-4 #### [facility] CLIA [id number] [address] STATES [facility] Epithelial cells LM.HPF (Urine sed) [#/Area] Few Normal [facility] Comment on above: Order Comment: Speci men Type: URINE SPECIMEN [facility] Address: [address] [place] [address] Result Comment: Few Performed By: #### 2 4356-8 #### [facility] CLIA [id number] [address] [place] [address] [place] #### 630-4 #### [facility] CLIA [id number] [address] Glucose Test strip (U) [Mass/Vol] Negative Normal Negative [facility] Comment on above: Order Comment: Speci men Type: URINE SPECIMEN [facility] Address: [address] [place] [address] Performed By: #### 2 4356-8 #### [facility] CLIA [id number] [address] [place] [address] [place] #### 630-4 #### [facility] CLIA [id number] [address] [place] Hemoglobin Ql (U) Negative Normal Negative [facility] Comment on above: Order Comment: Speci men Type: URINE SPECIMEN [facility] Address: [address] [place] [address] Performed By: #### 2 4356-8 #### [facility] CLIA [id number] [address] [place] [address] [place] #### 630-4 #### [facility] CLIA [id number] [address] [place] Ketones Ql (U) 1+ Abnormal Negative [facility] Comment on above: Order Comment: Speci men Type: URINE SPECIMEN [facility] Address: [address] [place] [address] Performed By: #### 2 4356-8 #### [facility] CLIA [id number] [address] [place] [address] #### 630-4 #### [facility] CLIA [id number] [address] Leukocyte esterase Test strip Ql (U) Negative Normal Negative [facility] Comment on above: Order Comment: Speci men Type: URINE SPECIMEN [facility] Address: [address] [place] [address] Performed By: #### 2 4356-8 #### [facility] CLIA [id number] [address] [place] [address] #### 630-4 #### [facility] CLIA [id number] [address] [place] [address] Nitrite Ql (U) Negative Normal Negative [facility] Comment on above: Order Comment: Speci men Type: URINE SPECIMEN [facility] Address: [address] [place] [address] Performed By: #### 2 4356-8 #### [facility] CLIA [id number] [address] [place] [address] #### 630-4 #### [facility] CLIA [id number] [address] [place] [address] pH (U) 6.0 [pH] Normal 5.0-8.0 [facility] Comment on above: Order Comment: Speci men Type: URINE SPECIMEN [facility] Address: [address] [place] [address] Performed By: #### 2 4356-8 #### [facility] CLIA [id number] [address] [place] [address] #### 630-4 #### [facility] CLIA [id number] [address] [place] [address] Protein (U) [Mass/Vol] 1+ Abnormal Negative [facility] Comment on above: Order Comment: Speci men Type: URINE SPECIMEN [facility] Address: [address] [place] [address] Performed By: #### 2 4356-8 #### [facility] CLIA [id number] [address] [place] [address] #### 630-4 #### [facility] CLIA [id number] [address] [place] [address] RBC LM.HPF (Urine sed) [#/Area] 0-3 /HPF Normal 0-3 /HPF [facility] Comment on above: Order Comment: Speci men Type: URINE SPECIMEN [facility] Address: [address] [place] [address] Performed By: #### 2 4356-8 #### [facility] CLIA [id number] [address] [place] [address] #### 630-4 #### [facility] CLIA [id number] [address] [place] [address] Specific gravity (U) [Rel density] 1.020 Normal 1.005-1.030 [facility] Comment on above: Order Comment: Speci men Type: URINE SPECIMEN [facility] Address: [address] [place] [address] Performed By: #### 2 4356-8 #### [facility] CLIA [id number] [address] [place] [address] #### 630-4 #### [facility] CLIA [id number] [address] Urobilinogen Ql (U) 0.2 EU/dL Normal 0.2-1.0 EU/dL [facility] Comment on above: Order Comment: Speci men Type: URINE SPECIMEN [facility] Address: [address] [place] [address] Performed By: #### 2 4356-8 #### [facility] CLIA [id number] [address] [place] [address] #### 630-4 #### [facility] CLIA [id number] [address] WBC LM.HPF (Urine sed) [#/Area] 0-5 /HPF Normal 0-5 /HPF [facility] Comment on above: Order Comment: Speci men Type: URINE SPECIMEN [facility] Address: [address] [place] [address] Performed By: #### 2 4356-8 #### [facility] CLIA [id number] [address] [place] [address] #### 630-4 #### [facility] CLIA [id number] [address] [place] [address] Yeast.budding LM.HPF (Urine sed) [#/Area] Few Abnormal None Seen [facility] Comment on above: Order Comment: Speci men Type: URINE SPECIMEN [facility] Address: [address] [place] [address] Performed By: #### 2 4356-8 #### [facility] CLIA [id number] [address] [place] [address] #### 630-4 #### [facility] CLIA [id number] [address] [place] [address] XR CHEST 1V FRONTALon 2024 XR CHEST 1V FRONTAL * * *Final Report* * * DATE OF EXAM: May 12 2024 7:27AM LDX 5290 - XR CHEST 1V FRONTAL / PROCEDURE REASON: Shortness of breath * * * * Physician Interpretation * * * * EXAMINATION: CHEST RADIOGRAPH (SINGLE VIEW AP OR PA) CLINICAL HISTORY: Shortness of breath MQ: XC1_5 Comparison: Chest x-ray 11/26/2022 and 03/06/2019 RESULT: Lines, tubes, and devices: None. Lungs and pleura: No pneumothorax or large areas of consolidation. Mild blunting of both costophrenic angles may represent small pleural effusions and/or pleural thickening. The appearance is stable from prior chest x-rays. Diminished aeration at the lung bases. Cardiomediastinal silhouette: Normal cardiomediastinal silhouette. Other: Pedicle screws and rodding and lower thoracic and lumbar spine. IMPRESSION: Mild blunting of both costophrenic angles similar in appearance to prior chest x-rays may represent small pleural effusions and/or pleural thickening. Diminished aeration at the lung bases. Tailor Fitter: PSCB Transcribe Date/Time: May 12 2024 7:48A Dictated by : DWIGHT CALLE MD This examination was interpreted and the report reviewed and electronically signed by: DWIGHT CALLE MD on May 12 2024 7:50AM EST [id number] Normal [facility] Discharge Instructionon 04-27 Discharge Instruction Normal [facility] Basic Metabolic Profile (BMP )on 05-07-2024 BUN/CRE 24.6 RATIO High 10-20 [facility] Comment on above: Performed By: #### L 500.2500 ####[facility] [address] [place], [address] CA,Total 7.0 mg/dL Low 8.5-10.1 [facility] Comment on above: Performed By: #### L 500.2500 ####[facility] [address] [place], [address] Chloride [Moles/Vol] 103 mmol/L Normal 98-107 [facility] Comment on above: Performed By: #### L 500.2500 ####[facility] [address] [place], [address] CO2 [Moles/Vol] 29.0 mmol/L Normal 21.0-32.0 [facility] Comment on above: Performed By: #### L 500.2500 ####[facility] [address] [place], [address] Creatinine [Mass/Vol] 0.53 mg/dL Low 0.55-1.02 [facility] Comment on above: Result Comment: The validity of the calculated GFR GFRAA in patients over70 years has not been determined. Clinical correlation isessential. Performed By: #### L 500.2500 ####[facility] [address] [place], [address] ECRCL 48.34 ml/min Normal [facility] Comment on above: Performed By: #### L 500.2500 ####[facility] [address] [place], [address] EST GFR - AA 148 mL/min Normal >60 [facility] Comment on above: Result Comment: Afri can Puerto [place]ican GFR Calc Performed By: #### L 500.2500 ####[facility] [address] [place], [address] GAP 5 Normal 5-15 [facility] Comment on above: Performed By: #### L 500.2500 ####[facility] [address] [place], [address] GFR/1.73 sq M.predicted among non-blacks MDRD (S/P/Bld) [Vol rate/Area] 122 mL/min/{1.73_m2} Normal >60 [facility] Comment on above: Result Comment: Non- GFR Calc Performed By: #### L 500.2500 ####[facility] [address] [place], [address] Glucose [Mass/Vol] 86 mg/dL Normal 74-106 [facility] Comment on above: Performed By: #### L 500.2500 ####[facility] [address] [place], [address] Potassium [Moles/Vol] 4.4 mmol/L Normal 3.5-5.1 [facility] Comment on above: Performed By: #### L 500.2500 ####[facility] [address] [place], [address] Sodium [Moles/Vol] 137 mmol/L Normal 136-145 [facility] Comment on above: Performed By: #### L 500.2500 ####[facility] [address] [place], [address] Urea nitrogen [Mass/Vol] 13 mg/dL Normal 7-18 [facility] Comment on above: Performed By: #### L 500.2500 ####[facility] [address] [place], [address] HH, Hemoglobin AND Hematocri ton 05-07-2024 Hematocrit (Bld) [Volume fraction] 25.6 % Low 37-47 [facility] Comment on above: Performed By: #### L 100.0600 ####[facility] [address] [place], [address] Hemoglobin (Bld) [Mass/Vol] 7.6 g/dL Low 12.0-15.0 [facility] Comment on above: Performed By: #### L 100.0600 ####[facility] [address] [place], [address] Basic Metabolic Profile (BMP )on 05-06-2024 BUN/CRE 24.3 RATIO High 10-20 [facility] Comment on above: Performed By: #### L 500.2500, L100.0100 ####[facility] [address] [place], [address] CA,Total 7.2 mg/dL Low 8.5-10.1 [facility] Comment on above: Performed By: #### L 500.2500, L100.0100 ####[facility] [address] [place], [address] Chloride [Moles/Vol] 103 mmol/L Normal 98-107 [facility] Comment on above: Performed By: #### L 500.2500, L100.0100 ####[facility] [address] [place], [address] CO2 [Moles/Vol] 28.0 mmol/L Normal 21.0-32.0 [facility] Comment on above: Performed By: #### L 500.2500, L100.0100 ####[facility] [address] [place], [address] Creatinine [Mass/Vol] 0.58 mg/dL Normal 0.55-1.02 [facility] Comment on above: Result Comment: The validity of the calculated GFR GFRAA in patients over70 years has not been determined. Clinical correlation isessential. Performed By: #### L 500.2500, L100.0100 ####[facility] [address] [place], [address] ECRCL 48.34 ml/min Normal [facility] Comment on above: Performed By: #### L 500.2500, L100.0100 ####[facility] [address] [place], [address] EST GFR - AA 133 mL/min Normal >60 [facility] Comment on above: Result Comment: Afri can [place] GFR Calc Performed By: #### L 500.2500, L100.0100 ####[facility] [address] [place], [address] GAP 11 Normal 5-15 [facility] Comment on above: Performed By: #### L 500.2500, L100.0100 ####[facility] [address] [place], [address] GFR/1.73 sq M.predicted among non-blacks MDRD (S/P/Bld) [Vol rate/Area] 110 mL/min/{1.73_m2} Normal >60 [facility] Comment on above: Result Comment: Non- GFR Calc Performed By: #### L 500.2500, L100.0100 ####[facility] [address] [place], [address] Glucose [Mass/Vol] 80 mg/dL Normal 74-106 [facility] Comment on above: Performed By: #### L 500.2500, L100.0100 ####[facility] [address] [place], [address] Potassium [Moles/Vol] 2.9 mmol/L Low 3.5-5.1 [facility] Comment on above: Performed By: #### L 500.2500, L100.0100 ####[facility] [address] [place], [address] Sodium [Moles/Vol] 142 mmol/L Normal 136-145 [facility] Comment on above: Performed By: #### L 500.2500, L100.0100 ####[facility] [address] [place], [address] Urea nitrogen [Mass/Vol] 14 mg/dL Normal 7-18 [facility] Comment on above: Performed By: #### L 500.2500, L100.0100 ####[facility] [address] [place], [address] CBC W/Diff, Automatedon - 0-5 Absolute Lymph 1.19 X10 3/uL Normal 0.83-4.51 [facility] Comment on above: Performed By: #### L 500.2500, L100.0100 ####[facility] [address] [place], [address] Absolute Neut 11.7 X10 3/uL High 2.0-7.7 [facility] Comment on above: Performed By: #### L 500.2500, L100.0100 ####[facility] [address] [place], [address] Basophils/100 WBC (Bld) 0.4 % Normal 0-1 [facility] Comment on above: Performed By: #### L 500.2500, L100.0100 ####[facility] [address] [place], [address] Eosinophils/100 WBC (Bld) 0.1 % Normal 0-5 [facility] Comment on above: Performed By: #### L 500.2500, L100.0100 ####[facility] [address] [place], [address] Erythrocyte distribution width (RBC) [Ratio] 18.1 % High 11.6-14.6 [facility] Comment on above: Performed By: #### L 500.2500, L100.0100 ####[facility] [address] [place], [address] Hematocrit (Bld) [Volume fraction] 25.2 % Low 37-47 [facility] Comment on above: Performed By: #### L 500.2500, L100.0100 ####[facility] [address] [place], [address] Hemoglobin (Bld) [Mass/Vol] 7.8 g/dL Low 12.0-15.0 [facility] Comment on above: Performed By: #### L 500.2500, L100.0100 ####[facility] [address] [place], [address] IG% 2.700 High 0.0-0.9 [facility] Comment on above: Result Comment: IG% - Immature Granulocytes (promyelocytes, myelocytes andmetamyelocytes) > 1% indicates that a LEFT SHIFT is Present. Performed By: #### L 500.2500, L100.0100 ####[facility] [address] [place], [address] Lymphocytes/100 WBC (Bld) 8.0 % Low 19-41 [facility] Comment on above: Performed By: #### L 500.2500, L100.0100 ####[facility] [address] [place], [address] MCH (RBC) [Entitic mass] 25.2 pg Low 27.0-32.0 [facility] Comment on above: Performed By: #### L 500.2500, L100.0100 ####[facility] [address] [place], [address] MCHC (RBC) [Mass/Vol] 31.0 g/dL Low 32-36 [facility] Comment on above: Performed By: #### L 500.2500, L100.0100 ####[facility] [address] [place], [address] MCV (RBC) [Entitic vol] 81.6 fL Normal 81-99 [facility] Comment on above: Performed By: #### L 500.2500, L100.0100 ####[facility] [address] [place], [address] Monocytes/100 WBC (Bld) 9.9 % Normal 0-10 [facility] Comment on above: Performed By: #### L 500.2500, L100.0100 ####[facility] [address] [place], [address] Neutrophils/100 WBC (Bld) 78.9 % High 47-70 [facility] Comment on above: Performed By: #### L 500.2500, L100.0100 ####[facility] [address] [place], [address] Nucleated RBC (Bld) [#/Vol] 0 10*3/uL Normal 0-5 [facility] Comment on above: Performed By: #### L 500.2500, L100.0100 ####[facility] [address] [place], [address] Platelet mean volume (Bld) [Entitic vol] 9.4 fL Normal 6.2-12.0 [facility] Comment on above: Performed By: #### L 500.2500, L100.0100 ####[facility] [address] [place], [address] Platelets (Bld) [#/Vol] 546 10*3/uL High 150-450 [facility] Comment on above: Performed By: #### L 500.2500, L100.0100 ####[facility] [address] [place], [address] RBC (Bld) [#/Vol] 3.09 10*6/uL Low 4.2-5.4 [facility] Comment on above: Performed By: #### L 500.2500, L100.0100 ####[facility] [address] [place], [address] RDW SD 53.8 fl High 35.1-43.9 [facility] Comment on above: Performed By: #### L 500.2500, L100.0100 ####[facility] [address] [place], [address] WBC (Bld) [#/Vol] 14.9 10*3/uL High 4.4-11.0 [facility] Comment on above: Performed By: #### L 500.2500, L100.0100 ####[facility] [address] [place], [address] EGD Reporton 05-06-2024 EGD Report Normal [facility] MR/POSTOP.ANEon 05-06-2024 MR/POSTOP.ANE Normal [facility] MR/JNMXBLEC1ye 05-06-2024 MR/POSTOPAN2 Normal [facility] Basic Metabolic Profile (BMP )on 05-05-2024 BUN/CRE 39.0 RATIO High 10-20 [facility] Comment on above: Performed By: #### L 500.2500, L100.0100 ####[facility] [address] [place], [address] CA,Total 7.4 mg/dL Low 8.5-10.1 [facility] Comment on above: Performed By: #### L 500.2500, L100.0100 ####[facility] [address] [place], [address] Chloride [Moles/Vol] 102 mmol/L Normal 98-107 [facility] Comment on above: Performed By: #### L 500.2500, L100.0100 ####[facility] [address] [place], [address] CO2 [Moles/Vol] 30.0 mmol/L Normal 21.0-32.0 [facility] Comment on above: Performed By: #### L 500.2500, L100.0100 ####[facility] [address] [place], [address] Creatinine [Mass/Vol] 0.46 mg/dL Low 0.55-1.02 [facility] Comment on above: Result Comment: The validity of the calculated GFR GFRAA in patients over70 years has not been determined. Clinical correlation isessential. Performed By: #### L 500.2500, L100.0100 ####[facility] [address] [place], [address] ECRCL 48.34 ml/min Normal [facility] Comment on above: Performed By: #### L 500.2500, L100.0100 ####[facility] [address] [place], [address] EST GFR - AA 173 mL/min Normal >60 [facility] Comment on above: Result Comment: Afri can Puerto [place]ican GFR Calc Performed By: #### L 500.2500, L100.0100 ####[facility] [address] [place], [address] GAP 6 Normal 5-15 [facility] Comment on above: Performed By: #### L 500.2500, L100.0100 ####[facility] [address] [place], [address] GFR/1.73 sq M.predicted among non-blacks MDRD (S/P/Bld) [Vol rate/Area] 143 mL/min/{1.73_m2} Normal >60 [facility] Comment on above: Result Comment: Non- GFR Calc Performed By: #### L 500.2500, L100.0100 ####[facility] [address] [place], [address] Glucose [Mass/Vol] 69 mg/dL Low 74-106 [facility] Comment on above: Performed By: #### L 500.2500, L100.0100 ####[facility] [address] [place], [address] Potassium [Moles/Vol] 3.1 mmol/L Low 3.5-5.1 [facility] Comment on above: Performed By: #### L 500.2500, L100.0100 ####[facility] [address] [place], [address] Sodium [Moles/Vol] 138 mmol/L Normal 136-145 [facility] Comment on above: Performed By: #### L 500.2500, L100.0100 ####[facility] [address] [place], [address] Urea nitrogen [Mass/Vol] 18 mg/dL Normal 7-18 [facility] Comment on above: Performed By: #### L 500.2500, L100.0100 ####[facility] [address] [place], [address] CBC W/Diff, Automatedon 01-0 SMEAR COMMENT SCANNED Normal [facility] Comment on above: Result Comment: AUTO DIFF OK Performed By: #### L 500.2500, L100.0100 ####[facility] [address] [place], [address] Chest 1 View (Portable)on Chest 1 View (Portable) Normal [facility] MR/PN.GIon 05-05-2024 MR/PN.GI Normal [facility] Basic Metabolic Profile (BMP )on 05-04-2024 BUN/CRE 38.7 RATIO High 10-20 [facility] Comment on above: Performed By: #### L 100.0100, L500.2500 ####[facility] [address] [place], [address] CA,Total 7.2 mg/dL Low 8.5-10.1 [facility] Comment on above: Performed By: #### L 100.0100, L500.2500 ####[facility] [address] [place], [address] Chloride [Moles/Vol] 93 mmol/L Low 98-107 [facility] Comment on above: Performed By: #### L 100.0100, L500.2500 ####[facility] [address] [place], [address] CO2 [Moles/Vol] 33.0 mmol/L High 21.0-32.0 [facility] Comment on above: Performed By: #### L 100.0100, L500.2500 ####[facility] [address] [place], [address] Creatinine [Mass/Vol] 0.65 mg/dL Normal 0.55-1.02 [facility] Comment on above: Result Comment: The validity of the calculated GFR GFRAA in patients over70 years has not been determined. Clinical correlation isessential. Performed By: #### L 100.0100, L500.2500 ####[facility] [address] [place], [address] ECRCL 48.34 ml/min Normal [facility] Comment on above: Performed By: #### L 100.0100, L500.2500 ####[facility] [address] [place], [address] EST GFR - AA 117 mL/min Normal >60 [facility] Comment on above: Result Comment: Afri can [place]ican GFR Calc Performed By: #### L 100.0100, L500.2500 ####[facility] [address] [place], [address] GAP 5 Normal 5-15 [facility] Comment on above: Performed By: #### L 100.0100, L500.2500 ####[facility] [address] [place], [address] GFR/1.73 sq M.predicted among non-blacks MDRD (S/P/Bld) [Vol rate/Area] 97 mL/min/{1.73_m2} Normal >60 [facility] Comment on above: Result Comment: Non- GFR Calc Performed By: #### L 100.0100, L500.2500 ####[facility] [address] [place], [address] Glucose [Mass/Vol] 118 mg/dL High 74-106 [facility] Comment on above: Result Comment: Fast ing Glucose result from 100 to 125 mg/dLsuggests IMPAIRED HOMEOSTASIS per A.D.A. criteria. Performed By: #### L 100.0100, L500.2500 ####[facility] [address] [place], [address] Potassium [Moles/Vol] 2.9 mmol/L Low 3.5-5.1 [facility] Comment on above: Performed By: #### L 100.0100, L500.2500 ####[facility] [address] [place], [address] Sodium [Moles/Vol] 131 mmol/L Low 136-145 [facility] Comment on above: Performed By: #### L 100.0100, L500.2500 ####[facility] [address] [place], [address] Urea nitrogen [Mass/Vol] 25 mg/dL High 7-18 [facility] Comment on above: Performed By: #### L 100.0100, L500.2500 ####[facility] [address] [place], [address] Blood Gases by [facility] MARCIA TEST Positive Normal [facility] Comment on above: Performed By: #### L 9000.0800 ####[facility] [address] [place], [address] Base excess Calc (Bld) [Moles/Vol] 5 mmol/L High -2 to +2 [facility] Comment on above: Performed By: #### L 9000.0800 ####[facility] [address] [place], [address] Blood Gas Type ART [facility] Comment on above: Performed By: #### L 9000.0800 ####[facility] [address] [place], [address] CO2 [Moles/Vol] 32 mmol/L [facility] Comment on above: Performed By: #### L 9000.0800 ####[facility] [address] [place], [address] [facility] Comment on above: Performed By: #### L 9000.0800 ####[facility] [address] [place], [address] HCO3 (Bld) [Moles/Vol] 29.9 mmol/L High 22-26 [facility] Comment on above: Performed By: #### L 9000.0800 ####[facility] [address] [place], [address] [facility] Comment on above: Performed By: #### L 0.0800 ####[facility] [address] [place], [address] O2 Delivery Dev BiPAP Normal [facility] Comment on above: Performed By: #### L 8999.0800 ####[facility] [address] [place], [address] pCO2 52.3 mmHg High 35-45 [facility] Comment on above: Performed By: #### L 8999.0800 ####[facility] [address] [place], [address] PEEP 14 Normal [facility] Comment on above: Performed By: #### L 0.0800 ####[facility] [address] [place], [address] pH (Bld) 7.37 [pH] Normal 7.35-7.45 [facility] Comment on above: Performed By: #### L 8999.0800 ####[facility] [address] [place], [address] PO2 163 mmHG High 75-100 [facility] Comment on above: Performed By: #### L 8999.0800 ####[facility] [address] [place], [address] RR 12 Normal [facility] Comment on above: Performed By: #### L 0.0800 ####[facility] [address] [place], [address] SITE R Radial Normal [facility] Comment on above: Performed By: #### L 8999.0800 ####[facility] [address] [place], [address] SO2 99 Normal 95-99 [facility] Comment on above: Performed By: #### L 0.0800 ####[facility] [address] [place], [address] Vt 450.0 mL Normal [facility] Comment on above: Performed By: #### L 0.0800 ####[facility] [address] [place], [address] MARCIA TEST Positive Normal [facility] Comment on above: Performed By: #### L 0.0800 ####[facility] [address] [place], [address] Base excess Calc (Bld) [Moles/Vol] 6 mmol/L High -2 to +2 [facility] Comment on above: Performed By: #### L 0.0800 ####[facility] [address] [place], [address] Blood Gas Type ART Normal [facility] Comment on above: Performed By: #### L 0.0800 ####[facility] [address] [place], [address] CO2 [Moles/Vol] 32 mmol/L Normal [facility] Comment on above: Performed By: #### L 0.0800 ####[facility] [address] [place], [address] FI02 10.0 Normal [facility] Comment on above: Performed By: #### L 0.0800 ####[facility] [address] [place], [address] HCO3 (Bld) [Moles/Vol] 30.6 mmol/L High 22-26 [facility] Comment on above: Performed By: #### L 8999.0800 ####[facility] [address] [place], [address] Mode Not entered Normal [facility] Comment on above: Performed By: #### L 0.0800 ####[facility] [address] [place], [address] O2 Delivery Dev HFNC Normal [facility] Comment on above: Performed By: #### L 9000.0800 ####[facility] [address] [place], [address] pCO2 49.4 mmHg High 35-45 [facility] Comment on above: Performed By: #### L 9000.0800 ####[facility] [address] [place], [address] pH (Bld) 7.40 [pH] Normal 7.35-7.45 [facility] Comment on above: Performed By: #### L 9000.0800 ####[facility] [address] [place], [address] PO2 59 mmHG Low 75-100 [facility] Comment on above: Performed By: #### L 9000.0800 ####[facility] [address] [place], [address] SITE R Radial Normal [facility] Comment on above: Performed By: #### L 9000.0800 ####[facility] [address] [place], [address] SO2 90 Low 95-99 [facility] Comment on above: Performed By: #### L 9000.0800 ####[facility] [address] [place], [address] CBC W/Diff, Automatedon 01-0 OVALOCYTE 1+ Normal [facility] Comment on above: Performed By: #### L 100.0100, L500.2500 ####[facility] [address] [place], [address] POLYCHROMASIA 1+ Normal [facility] Comment on above: Performed By: #### L 100.0100, L500.2500 ####[facility] [address] [place], [address] MR/PN.GIon 05-04-2024 MR/PN.GI Normal [facility] BRCon 05-03-2024 RC Normal [facility] Comment on above: Result Comment: [id number] AN RC TRANSFUSED 05/03/24 1215 Performed By: #### B RC, BTS ####[facility] [address] [place], [address] Basic Metabolic Profile (BMP )on 05-03-2024 BUN/CRE 46.3 RATIO High 10-20 [facility] Comment on above: Performed By: #### L 100.0100, L500.2500 ####[facility] [address] [place], [address] CA,Total 7.4 mg/dL Low 8.5-10.1 [facility] Comment on above: Performed By: #### L 100.0100, L500.2500 ####[facility] [address] [place], [address] Chloride [Moles/Vol] 95 mmol/L Low 98-107 [facility] Comment on above: Performed By: #### L 100.0100, L500.2500 ####[facility] [address] [place], [address] CO2 [Moles/Vol] 30.0 mmol/L Normal 21.0-32.0 [facility] Comment on above: Performed By: #### L 100.0100, L500.2500 ####[facility] [address] [place], [address] Creatinine [Mass/Vol] 0.65 mg/dL Normal 0.55-1.02 [facility] Comment on above: Result Comment: The validity of the calculated GFR GFRAA in patients over70 years has not been determined. Clinical correlation isessential. Performed By: #### L 100.0100, L500.2500 ####[facility] [address] [place], [address] ECRCL 48.34 ml/min Normal [facility] Comment on above: Performed By: #### L 100.0100, L500.2500 ####[facility] [address] [place], [address] EST GFR - AA 117 mL/min Normal >60 [facility] Comment on above: Result Comment: Afri can [place]ican GFR Calc Performed By: #### L 100.0100, L500.2500 ####[facility] [address] [place], [address] GAP 6 Normal 5-15 [facility] Comment on above: Performed By: #### L 100.0100, L500.2500 ####[facility] [address] [place], [address] GFR/1.73 sq M.predicted among non-blacks MDRD (S/P/Bld) [Vol rate/Area] 96 mL/min/{1.73_m2} Normal >60 [facility] Comment on above: Result Comment: Non- GFR Calc Performed By: #### L 100.0100, L500.2500 ####[facility] [address] [place], [address] Glucose [Mass/Vol] 91 mg/dL Normal 74-106 [facility] Comment on above: Performed By: #### L 100.0100, L500.2500 ####[facility] [address] [place], [address] Potassium [Moles/Vol] 3.4 mmol/L Low 3.5-5.1 [facility] Comment on above: Performed By: #### L 100.0100, L500.2500 ####[facility] [address] [place], [address] Sodium [Moles/Vol] 131 mmol/L Low 136-145 [facility] Comment on above: Performed By: #### L 100.0100, L500.2500 ####[facility] [address] [place], [address] Urea nitrogen [Mass/Vol] 30 mg/dL High 7-18 [facility] Comment on above: Performed By: #### L 100.0100, L500.2500 ####[facility] [address] [place], [address] CBC W/Diff, Automatedon -0 HYPOCHROMASIA 1+ Normal [facility] Comment on above: Performed By: #### L 100.0100, L500.2500 ####[facility] [address] [place], [address] PLT EST MOD INC Normal ADEQ [facility] Comment on above: Performed By: #### L 100.0100, L500.2500 ####[facility] [address] [place], [address] SMEAR COMMENT Normal [facility] Comment on above: Result Comment: BAND S NOTED Performed By: #### L 100.0100, L500.2500 ####[facility] [address] [place], [address] HH, Hemoglobin AND Hematocri ton 05-03-2024 Hematocrit (Bld) [Volume fraction] 22.7 % Low 37-47 [facility] Comment on above: Order Comment: PER Alberto BALTAZAR-HAVING TO CHECK W/DR ON WHEN HH TO [facility] CBC WAS DRAWN AROUND 530AM Performed By: #### L 100.0600 ####[facility] [address] [place], [address] Hemoglobin (Bld) [Mass/Vol] 6.9 g/dL Low 12.0-15.0 [facility] Comment on above: Order Comment: PER Alberto BALTAZAR-HAVING TO CHECK W/DR ON WHEN HH TO [facility] CBC WAS DRAWN AROUND 530AM Performed By: #### L 100.0600 ####[facility] [address] [place], [address] MR/CON.PCM.GIon 05-03-2024 MR/CON.PCM.GI Normal [facility] Respiratory Cultureon 2024 RESPC Normal [facility] Comment on above: Performed By: #### M 100.2000, M100.2400 ####[facility] [address] [place], [address] Type AND Screenon 05-03-2024 Ab SCREEN GEL Negative Normal [facility] Comment on above: Order Comment: CMV N EG? NNumber of units to transfuse: 1Reason for Ordering Blood: AcuteAre the blood/blood products to be transfused? YIs the patient having/had surgery? NWvidal Silver Performed By: #### B RC, BTS ####[facility] [address] [place], [address] Basic Metabolic Profile (BMP )on 05-02-2024 BUN/CRE 43.7 RATIO High 10-20 [facility] Comment on above: Performed By: #### L 500.2500, L100.0100 ####[facility] [address] [place], [address] CA,Total 7.4 mg/dL Low 8.5-10.1 [facility] Comment on above: Performed By: #### L 500.2500, L100.0100 ####[facility] [address] [place], [address] Chloride [Moles/Vol] 95 mmol/L Low 98-107 [facility] Comment on above: Performed By: #### L 500.2500, L100.0100 ####[facility] [address] [place], [address] CO2 [Moles/Vol] 30.0 mmol/L Normal 21.0-32.0 [facility] Comment on above: Performed By: #### L 500.2500, L100.0100 ####[facility] [address] [place], [address] Creatinine [Mass/Vol] 0.94 mg/dL Normal 0.55-1.02 [facility] Comment on above: Result Comment: The validity of the calculated GFR GFRAA in patients over70 years has not been determined. Clinical correlation isessential. Performed By: #### L 500.2500, L100.0100 ####[facility] [address] [place], [address] ECRCL 41.14 ml/min Normal [facility] Comment on above: Performed By: #### L 500.2500, L100.0100 ####[facility] [address] [place], [address] EST GFR - AA 76 mL/min Normal >60 [facility] Comment on above: Result Comment: Afri can [place]ican GFR Calc Performed By: #### L 500.2500, L100.0100 ####[facility] [address] [place], [address] GAP 6 Normal 5-15 [facility] Comment on above: Performed By: #### L 500.2500, L100.0100 ####[facility] [address] [place], [address] GFR/1.73 sq M.predicted among non-blacks MDRD (S/P/Bld) [Vol rate/Area] 63 mL/min/{1.73_m2} Normal >60 [facility] Comment on above: Result Comment: Non- GFR Calc Performed By: #### L 500.2500, L100.0100 ####[facility] [address] [place], [address] Glucose [Mass/Vol] 104 mg/dL Normal 74-106 [facility] Comment on above: Result Comment: Fast ing Glucose result from 100 to 125 mg/dLsuggests IMPAIRED HOMEOSTASIS per A.D.A. criteria. Performed By: #### L 500.2500, L100.0100 ####[facility] [address] [place], [address] Potassium [Moles/Vol] 3.6 mmol/L Normal 3.5-5.1 [facility] Comment on above: Performed By: #### L 500.2500, L100.0100 ####[facility] [address] [place], [address] Sodium [Moles/Vol] 131 mmol/L Low 136-145 [facility] Comment on above: Performed By: #### L 500.2500, L100.0100 ####[facility] [address] [place], [address] Urea nitrogen [Mass/Vol] 41 mg/dL High 7-18 [facility] Comment on above: Performed By: #### L 500.2500, L100.0100 ####[facility] [address] [place], [address] Blood Gases by [facility] MARCIA TEST Positive Normal [facility] Comment on above: Performed By: #### L 9000.0800 ####[facility] [address] [place], [address] Base excess Calc (Bld) [Moles/Vol] 7 mmol/L High -2 to +2 [facility] Comment on above: Performed By: #### L 9000.0800 ####[facility] [address] [place], [address] Blood Gas Type ART Normal [facility] Comment on above: Performed By: #### L 9000.0800 ####[facility] [address] [place], [address] CO2 [Moles/Vol] 35 mmol/L Normal [facility] Comment on above: Performed By: #### L 9000.0800 ####[facility] [address] [place], [address] FI02 80.0 Normal [facility] Comment on above: Performed By: #### L 9000.0800 ####[facility] [address] [place], [address] HCO3 (Bld) [Moles/Vol] 32.7 mmol/L High 22-26 [facility] Comment on above: Performed By: #### L 9000.0800 ####[facility] [address] [place], [address] Mode BiLevel Normal [facility] Comment on above: Performed By: #### L 9000.0800 ####[facility] [address] [place], [address] O2 Delivery Dev BiPAP Normal [facility] Comment on above: Performed By: #### L 9000.0800 ####[facility] [address] [place], [address] pCO2 60.6 mmHg High 35-45 [facility] Comment on above: Performed By: #### L 9000.0800 ####[facility] [address] [place], [address] PEEP 12 Normal [facility] Comment on above: Performed By: #### L 9000.0800 ####[facility] [address] [place], [address] pH (Bld) 7.34 [pH] Low 7.35-7.45 [facility] Comment on above: Performed By: #### L 9000.0800 ####[facility] [address] [place], [address] PO2 187 mmHG High 75-100 [facility] Comment on above: Performed By: #### L 9000.0800 ####[facility] [address] [place], [address] RR 12 Normal [facility] Comment on above: Performed By: #### L 9000.0800 ####[facility] [address] [place], [address] SITE R Radial Normal [facility] Comment on above: Performed By: #### L 9000.0800 ####[facility] [address] [place], [address] SO2 100 High 95-99 [facility] Comment on above: Performed By: #### L 9000.0800 ####[facility] [address] [place], [address] Vt 450.0 mL Normal [facility] Comment on above: Performed By: #### L 9000.0800 ####[facility] [address] [place], [address] CBC W/Diff, Automatedon 01-0 -2024 Absolute Lymph 1.19 X10 3/uL Normal 0.83-4.51 [facility] Comment on above: Performed By: #### L 500.2500, L100.0100 ####[facility] [address] [place], [address] Absolute Neut 18.0 X10 3/uL High 2.0-7.7 [facility] Comment on above: Performed By: #### L 500.2500, L100.0100 ####[facility] [address] [place], [address] Basophils/100 WBC (Bld) 0.3 % Normal 0-1 [facility] Comment on above: Performed By: #### L 500.2500, L100.0100 ####[facility] [address] [place], [address] Eosinophils/100 WBC (Bld) 0.1 % Normal 0-5 [facility] Comment on above: Performed By: #### L 500.2500, L100.0100 ####[facility] [address] [place], [address] Erythrocyte distribution width (RBC) [Ratio] 16.3 % High 11.6-14.6 [facility] Comment on above: Performed By: #### L 500.2500, L100.0100 ####[facility] [address] [place], [address] Hematocrit (Bld) [Volume fraction] 24.7 % Low 37-47 [facility] Comment on above: Performed By: #### L 500.2500, L100.0100 ####[facility] [address] [place], [address] Hemoglobin (Bld) [Mass/Vol] 7.5 g/dL Low 12.0-15.0 [facility] Comment on above: Performed By: #### L 500.2500, L100.0100 ####[facility] [address] [place], [address] IG% 1.000 High 0.0-0.9 [facility] Comment on above: Result Comment: IG% - Immature Granulocytes (promyelocytes, myelocytes andmetamyelocytes) > 1% indicates that a LEFT SHIFT is Present. Performed By: #### L 500.2500, L100.0100 ####[facility] [address] [place], [address] Lymphocytes/100 WBC (Bld) 5.8 % Low 19-41 [facility] Comment on above: Performed By: #### L 500.2500, L100.0100 ####[facility] [address] [place], [address] MCH (RBC) [Entitic mass] 23.7 pg Low 27.0-32.0 [facility] Comment on above: Performed By: #### L 500.2500, L100.0100 ####[facility] [address] [place], [address] MCHC (RBC) [Mass/Vol] 30.4 g/dL Low 32-36 [facility] Comment on above: Performed By: #### L 500.2500, L100.0100 ####[facility] [address] [place], [address] MCV (RBC) [Entitic vol] 78.2 fL Low 81-99 [facility] Comment on above: Performed By: #### L 500.2500, L100.0100 ####[facility] [address] [place], [address] Monocytes/100 WBC (Bld) 4.5 % Normal 0-10 [facility] Comment on above: Performed By: #### L 500.2500, L100.0100 ####[facility] [address] [place], [address] Neutrophils/100 WBC (Bld) 88.3 % High 47-70 [facility] Comment on above: Performed By: #### L 500.2500, L100.0100 ####[facility] [address] [place], [address] Nucleated RBC (Bld) [#/Vol] 0.6 10*3/uL Normal 0-5 [facility] Comment on above: Performed By: #### L 500.2500, L100.0100 ####[facility] [address] [place], [address] Platelet mean volume (Bld) [Entitic vol] 9.2 fL Normal 6.2-12.0 [facility] Comment on above: Performed By: #### L 500.2500, L100.0100 ####[facility] [address] [place], [address] Platelets (Bld) [#/Vol] 571 10*3/uL High 150-450 [facility] Comment on above: Performed By: #### L 500.2500, L100.0100 ####[facility] [address] [place], [address] RBC (Bld) [#/Vol] 3.16 10*6/uL Low 4.2-5.4 [facility] Comment on above: Performed By: #### L 500.2500, L100.0100 ####[facility] [address] [place], [address] RDW SD 47.0 fl High 35.1-43.9 [facility] Comment on above: Performed By: #### L 500.2500, L100.0100 ####[facility] [address] [place], [address] WBC (Bld) [#/Vol] 20.4 10*3/uL High 4.4-11.0 [facility] Comment on above: Performed By: #### L 500.2500, L100.0100 ####[facility] [address] [place], [address] Consultation - Infectious Dx on 05-02-2024 Consultation - Infectious Dx Normal [facility] Basic Metabolic Profile (BMP )on 05-01-2024 BUN/CRE 49.0 RATIO High 10-20 [facility] Comment on above: Performed By: #### L 100.0100, L500.2500 ####[facility] [address] [place], [address] CA,Total 8.1 mg/dL Low 8.5-10.1 [facility] Comment on above: Performed By: #### L 100.0100, L500.2500 ####[facility] [address] [place], [address] Chloride [Moles/Vol] 95 mmol/L Low 98-107 [facility] Comment on above: Performed By: #### L 100.0100, L500.2500 ####[facility] [address] [place], [address] CO2 [Moles/Vol] 28.0 mmol/L Normal 21.0-32.0 [facility] Comment on above: Performed By: #### L 100.0100, L500.2500 ####[facility] [address] [place], [address] Creatinine [Mass/Vol] 0.92 mg/dL Normal 0.55-1.02 [facility] Comment on above: Result Comment: The validity of the calculated GFR GFRAA in patients over70 years has not been determined. Clinical correlation isessential. Performed By: #### L 100.0100, L500.2500 ####[facility] [address] [place], [address] ECRCL 42.04 ml/min Normal [facility] Comment on above: Performed By: #### L 100.0100, L500.2500 ####[facility] [address] [place], [address] EST GFR - AA 78 mL/min Normal >60 [facility] Comment on above: Result Comment: Afri can [place]ican GFR Calc Performed By: #### L 100.0100, L500.2500 ####[facility] [address] [place], [address] GAP 6 Normal 5-15 [facility] Comment on above: Performed By: #### L 100.0100, L500.2500 ####[facility] [address] [place], [address] GFR/1.73 sq M.predicted among non-blacks MDRD (S/P/Bld) [Vol rate/Area] 65 mL/min/{1.73_m2} Normal >60 [facility] Comment on above: Result Comment: Non- GFR Calc Performed By: #### L 100.0100, L500.2500 ####[facility] [address] [place], [address] Glucose [Mass/Vol] 133 mg/dL High 74-106 [facility] Comment on above: Result Comment: Fast ing Glucose result greater than or equal to 126 mg/dLsuggests DIABETES MELLITUS per A.D.A. criteria. Performed By: #### L 100.0100, L500.2500 ####[facility] [address] [place], [address] Potassium [Moles/Vol] 4.0 mmol/L Normal 3.5-5.1 [facility] Comment on above: Performed By: #### L 100.0100, L500.2500 ####[facility] [address] [place], [address] Sodium [Moles/Vol] 130 mmol/L Low 136-145 [facility] Comment on above: Performed By: #### L 100.0100, L500.2500 ####[facility] [address] [place], [address] Urea nitrogen [Mass/Vol] 45 mg/dL High 7-18 [facility] Comment on above: Performed By: #### L 100.0100, L500.2500 ####[facility] [address] [place], [address] CBC W/Diff, Automatedon 0 HYPOCHROMASIA 1+ Normal [facility] Comment on above: Performed By: #### L 100.0100, L500.2500 ####[facility] [address] [place], [address] PLT EST MOD INC Normal ADEQ [facility] Comment on above: Performed By: #### L 100.0100, L500.2500 ####[facility] [address] [place], [address] COVID 19 AG RAPID (DEWAYNE Loving)on 05-01-2024 SARS-CoV-2 (COVID-19) RNA FLEX+probe Ql (Unsp spec) Normal [facility] Comment on above: Performed By: #### M 100.505 ####[facility] [address] [place], [address] Chest PA and Lateralon 05-01 Chest PA and Lateral Normal [facility] Hemoglobinon 05-01-2024 Hemoglobin (Bld) [Mass/Vol] 8.2 g/dL Low 12.0-15.0 [facility] Comment on above: Performed By: #### L 100.1300 ####[facility] [address] [place], [address] Basic Metabolic Profile (BMP )on 04-30-2024 BUN/CRE 41.2 RATIO High 10-20 [facility] Comment on above: Performed By: #### L 100.0100, L500.2500 ####[facility] [address] [place], [address] CA,Total 9.4 mg/dL Normal 8.5-10.1 [facility] Comment on above: Performed By: #### L 100.0100, L500.2500 ####[facility] [address] [place], [address] Chloride [Moles/Vol] 88 mmol/L Low 98-107 [facility] Comment on above: Performed By: #### L 100.0100, L500.2500 ####[facility] [address] [place], [address] CO2 [Moles/Vol] 31.0 mmol/L Normal 21.0-32.0 [facility] Comment on above: Performed By: #### L 100.0100, L500.2500 ####[facility] [address] [place], [address] Creatinine [Mass/Vol] 1.31 mg/dL High 0.55-1.02 [facility] Comment on above: Result Comment: The validity of the calculated GFR GFRAA in patients over70 years has not been determined. Clinical correlation isessential. Performed By: #### L 100.0100, L500.2500 ####[facility] [address] [place], [address] ECRCL 29.52 ml/min Normal [facility] Comment on above: Performed By: #### L 100.0100, L500.2500 ####[facility] [address] [place], [address] EST GFR - AA 52 mL/min Low >60 [facility] Comment on above: Result Comment: Afri can [place] GFR Calc Performed By: #### L 100.0100, L500.2500 ####[facility] [address] [place], [address] GAP 9 Normal 5-15 [facility] Comment on above: Performed By: #### L 100.0100, L500.2500 ####[facility] [address] [place], [address] GFR/1.73 sq M.predicted among non-blacks MDRD (S/P/Bld) [Vol rate/Area] 43 mL/min/{1.73_m2} Low >60 [facility] Comment on above: Result Comment: Non- GFR Calc Performed By: #### L 100.0100, L500.2500 ####[facility] [address] [place], [address] Glucose [Mass/Vol] 150 mg/dL High 74-106 [facility] Comment on above: Result Comment: Fast ing Glucose result greater than or equal to 126 mg/dLsuggests DIABETES MELLITUS per A.D.A. criteria. Performed By: #### L 100.0100, L500.2500 ####[facility] [address] [place], [address] Potassium [Moles/Vol] 4.8 mmol/L Normal 3.5-5.1 [facility] Comment on above: Performed By: #### L 100.0100, L500.2500 ####[facility] [address] [place], [address] Sodium [Moles/Vol] 128 mmol/L Low 136-145 [facility] Comment on above: Performed By: #### L 100.0100, L500.2500 ####[facility] [address] [place], [address] Urea nitrogen [Mass/Vol] 54 mg/dL High 7-18 [facility] Comment on above: Performed By: #### L 100.0100, L500.2500 ####[facility] [address] [place], [address] CBC W/Diff, Automatedon SMEAR COMMENT SCANNED Normal [facility] Comment on above: Result Comment: NEUT ROPHILLIA PRESENTLEFT SHIFT BANDS PRESENT 1+ Performed By: #### L 100.0100, L500.2500 ####[facility] [address] [place], [address] Gram Stainon 04-30-2024 GS Acceptable Specimen? Yes (<25 Epithelial cells per/lpf) Gram Stain 4+ Gram negative rods 1+ Gram positive rods Rare Gram positive cocci No Epithelial cells 2+ White Blood Cells Normal [facility] Comment on above: Performed By: #### M 100.2000, M100.2400 ####[facility] [address] [place], [address] Basic Metabolic Profile (BMP )on 04-29-2024 BUN/CRE 39.4 RATIO High 10-20 [facility] Comment on above: Performed By: #### L 100.0100, L500.2500 ####[facility] [address] [place], [address] CA,Total 9.8 mg/dL Normal 8.5-10.1 [facility] Comment on above: Performed By: #### L 100.0100, L500.2500 ####[facility] [address] [place], [address] Chloride [Moles/Vol] 91 mmol/L Low 98-107 [facility] Comment on above: Performed By: #### L 100.0100, L500.2500 ####[facility] [address] [place], [address] CO2 [Moles/Vol] 33.0 mmol/L High 21.0-32.0 [facility] Comment on above: Performed By: #### L 100.0100, L500.2500 ####[facility] [address] [place], [address] Creatinine [Mass/Vol] 1.09 mg/dL High 0.55-1.02 [facility] Comment on above: Result Comment: The validity of the calculated GFR GFRAA in patients over70 years has not been determined. Clinical correlation isessential. Performed By: #### L 100.0100, L500.2500 ####[facility] [address] [place], [address] ECRCL 35.48 ml/min Normal [facility] Comment on above: Performed By: #### L 100.0100, L500.2500 ####[facility] [address] [place], [address] EST GFR - AA 64 mL/min Normal >60 [facility] Comment on above: Result Comment: Afri can [place] GFR Calc Performed By: #### L 100.0100, L500.2500 ####[facility] [address] [place], [address] GAP 6 Normal 5-15 [facility] Comment on above: Performed By: #### L 100.0100, L500.2500 ####[facility] [address] [place], [address] GFR/1.73 sq M.predicted among non-blacks MDRD (S/P/Bld) [Vol rate/Area] 53 mL/min/{1.73_m2} Low >60 [facility] Comment on above: Result Comment: Non- GFR Calc Performed By: #### L 100.0100, L500.2500 ####[facility] [address] [place], [address] Glucose [Mass/Vol] 132 mg/dL High 74-106 [facility] Comment on above: Result Comment: Fast ing Glucose result greater than or equal to 126 mg/dLsuggests DIABETES MELLITUS per A.D.A. criteria. Performed By: #### L 100.0100, L500.2500 ####[facility] [address] [place], [address] Potassium [Moles/Vol] 4.5 mmol/L Normal 3.5-5.1 [facility] Comment on above: Performed By: #### L 100.0100, L500.2500 ####[facility] [address] [place], [address] Sodium [Moles/Vol] 130 mmol/L Low 136-145 [facility] Comment on above: Performed By: #### L 100.0100, L500.2500 ####[facility] [address] [place], [address] Urea nitrogen [Mass/Vol] 43 mg/dL High 7-18 [facility] Comment on above: Performed By: #### L 100.0100, L500.2500 ####[facility] [address] [place], [address] CBC W/Diff, Automatedon - PLT EST [employer]D INC Normal ADEQ [facility] Comment on above: Performed By: #### L 100.0100, L500.2500 ####[facility] [address] [place], [address] OVALOCYTE 1+ Normal [facility] Comment on above: Performed By: #### L 100.0100, L500.2500 ####[facility] [address] [place], [address] POLYCHROMASIA 1+ Normal [facility] Comment on above: Performed By: #### L 100.0100, L500.2500 ####[facility] [address] [place], [address] CTA Chest W/WO Contraston CTA Chest W/WO Contrast Normal W [facility] Consultation - Intensiviston 04-29-2024 Consultation - House Parent Normal [facility] L501.4020on 04-29-2024 TROPONIN-I HS 8 pg/mL Normal 3.0-54.0 [facility] Comment on above: Order Comment: 'TROP ' Serial specimen #1, #2 or #3: 1 Result Comment: Alex gay Note: New Test Units and Gender Specific Reference Ranges. For more information see Policy Stat Procedure Thur[place] High Sensitivity Troponin (TNIH) and attachments. Performed By: #### L 509.7000, L501.4020 ####[facility] [address] [place], [address] Procalcitoninon 04-29-2024 Procalcitonin 0.21 ng/mL High 0.00-0.09 [facility] Comment on above: Result Comment: A pr ocalcitonin (PCT) level above 2.0 ng/mL on the first day of ICU admission is associated with a high risk for progression to severe sepsis and/or septic shock. A PCT level below 0.5 ng/mL on the first day of ICU admission is associated with a low risk for progression to severe and/or septic shock. Note: Concentrations <0.5 ng/mL do not exclude an infection on account of localized infections (without systemic signs) which can be associated with such low concentrations, or a systemic infection in its initial stages (<6 hours). Furthermore, increased procalcitonin can occur without infection. PCT concentrations between 0.5 and 2.0 ng/mL should be interpreted taking into account the patient's history. It is recommended to retest PCT within 6-24 hours if any concentrations <2 ng/mL are obtained. Performed By: #### L 509.7000, L501.4020 ####[facility] [address] [place], [address] 12 Lead EKGon 04-28-2024 12 Lead EKG Normal [facility] BNP,B-Type NATRIURETIC PEPTI Viraj 04-28-2024 Natriuretic peptide B (Bld) [Mass/Vol] 183.3 pg/mL High 0-100 [facility] Comment on above: Performed By: #### L 503.6620 ####[facility] [address] [place], [address] Basic Metabolic Profile (BMP )on 04-28-2024 BUN/CRE 23.3 RATIO High 10-20 [facility] Comment on above: Performed By: #### L 100.0500, L500.2500 ####[facility] [address] [place], [address] CA,Total 9.5 mg/dL Normal 8.5-10.1 [facility] Comment on above: Performed By: #### L 100.0500, L500.2500 ####[facility] [address] [place], [address] Chloride [Moles/Vol] 98 mmol/L Normal 98-107 [facility] Comment on above: Performed By: #### L 100.0500, L500.2500 ####[facility] [address] [place], [address] CO2 [Moles/Vol] 33.0 mmol/L High 21.0-32.0 [facility] Comment on above: Performed By: #### L 100.0500, L500.2500 ####[facility] [address] [place], [address] Creatinine [Mass/Vol] 0.94 mg/dL Normal 0.55-1.02 [facility] Comment on above: Result Comment: The validity of the calculated GFR GFRAA in patients over70 years has not been determined. Clinical correlation isessential. Performed By: #### L 100.0500, L500.2500 ####[facility] [address] [place], [address] ECRCL 41.14 ml/min Normal [facility] Comment on above: Performed By: #### L 100.0500, L500.2500 ####[facility] [address] [place], [address] EST GFR - AA 76 mL/min Normal >60 [facility] Comment on above: Result Comment: Afri can [place] GFR Calc Performed By: #### L 100.0500, L500.2500 ####[facility] [address] [place], [address] GAP 5 Normal 5-15 [facility] Comment on above: Performed By: #### L 100.0500, L500.2500 ####[facility] [address] [place], [address] GFR/1.73 sq M.predicted among non-blacks MDRD (S/P/Bld) [Vol rate/Area] 62 mL/min/{1.73_m2} Normal >60 [facility] Comment on above: Result Comment: Non- GFR Calc Performed By: #### L 100.0500, L500.2500 ####[facility] [address] [place], [address] Glucose [Mass/Vol] 128 mg/dL High 74-106 [facility] Comment on above: Result Comment: Fast ing Glucose result greater than or equal to 126 mg/dLsuggests DIABETES MELLITUS per A.D.A. criteria. Performed By: #### L 100.0500, L500.2500 ####[facility] [address] [place], [address] Potassium [Moles/Vol] 4.2 mmol/L Normal 3.5-5.1 [facility] Comment on above: Performed By: #### L 100.0500, L500.2500 ####[facility] [address] [place], [address] Sodium [Moles/Vol] 136 mmol/L Normal 136-145 [facility] Comment on above: Performed By: #### L 100.0500, L500.2500 ####[facility] [address] [place], [address] Urea nitrogen [Mass/Vol] 22 mg/dL High 7-18 [facility] Comment on above: Performed By: #### L 100.0500, L500.2500 ####[facility] [address] [place], [address] Blood G[facility] by [facility] MARCIA TEST Positive Normal [facility] Comment on above: Performed By: #### L 9000.0800 ####[facility] [address] [place], [address] Base excess Calc (Bld) [Moles/Vol] 4 mmol/L High -2 to +2 [facility] Comment on above: Performed By: #### L 9000.0800 ####[facility] [address] [place], [address] Blood Gas Type ART Normal [facility] Comment on above: Performed By: #### L 9000.0800 ####[facility] [address] [place], [address] CO2 [Moles/Vol] 30 mmol/L Normal [facility] Center Comment on above: Performed By: #### L 9000.0800 ####[facility] [address] [place], [address] FI02 8.0 Normal [facility] Comment on above: Performed By: #### L 9000.0800 ####[facility] [address] [place], [address] HCO3 (Bld) [Moles/Vol] 28.9 mmol/L High 22-26 [facility] Comment on above: Performed By: #### L 9000.0800 ####[facility] [address] [place], [address] Mode Not entered Normal [facility] Comment on above: Performed By: #### L 9000.0800 ####[facility] [address] [place], [address] O2 Delivery Dev Cannula Normal [facility] Comment on above: Performed By: #### L 9000.0800 ####[facility] [address] [place], [address] pCO2 49.7 mmHg High 35-45 [facility] Comment on above: Performed By: #### L 9000.0800 ####[facility] [address] [place], [address] pH (Bld) 7.37 [pH] Normal 7.35-7.45 [facility] Comment on above: Performed By: #### L 9000.0800 ####[facility] [address] [place], [address] PO2 78 mmHG Normal 75-100 [facility] Comment on above: Performed By: #### L 9000.0800 ####[facility] [address] [place], [address] SITE L Radial Normal [facility] Comment on above: Performed By: #### L 9000.0800 ####[facility] [address] [place], [address] SO2 95 Normal 95-99 [facility] Comment on above: Performed By: #### L 9000.0800 ####[facility] [address] [place], [address] CBC-Complete Blood Cnt No Di ffon 04-28-2024 Erythrocyte distribution width (RBC) [Ratio] 17.3 % High 11.6-14.6 [facility] Comment on above: Performed By: #### L 100.0500, L500.2500 ####[facility] [address] [place], [address] Hematocrit (Bld) [Volume fraction] 30.1 % Low 37-47 [facility] Comment on above: Performed By: #### L 100.0500, L500.2500 ####[facility] [address] [place], [address] Hemoglobin (Bld) [Mass/Vol] 9.1 g/dL Low 12.0-15.0 [facility] Comment on above: Performed By: #### L 100.0500, L500.2500 ####[facility] [address] [place], [address] MCH (RBC) [Entitic mass] 24.0 pg Low 27.0-32.0 [facility] Comment on above: Performed By: #### L 100.0500, L500.2500 ####[facility] [address] [place], [address] MCHC (RBC) [Mass/Vol] 30.2 g/dL Low 32-36 [facility] Comment on above: Performed By: #### L 100.0500, L500.2500 ####[facility] [address] [place], [address] MCV (RBC) [Entitic vol] 79.4 fL Low 81-99 [facility] Comment on above: Performed By: #### L 100.0500, L500.2500 ####[facility] [address] [place], [address] Platelet mean volume (Bld) [Entitic vol] 9.7 fL Normal 6.2-12.0 [facility] Comment on above: Performed By: #### L 100.0500, L500.2500 ####[facility] [address] [place], [address] Platelets (Bld) [#/Vol] 643 10*3/uL High 150-450 [facility] Comment on above: Performed By: #### L 100.0500, L500.2500 ####[facility] [address] [place], [address] RBC (Bld) [#/Vol] 3.79 10*6/uL Low 4.2-5.4 [facility] Comment on above: Performed By: #### L 100.0500, L500.2500 ####[facility] [address] [place], [address] RDW SD 49.6 fl High 35.1-43.9 [facility] Comment on above: Performed By: #### L 100.0500, L500.2500 ####[facility] [address] [place], [address] WBC (Bld) [#/Vol] 12.5 10*3/uL High 4.4-11.0 [facility] Comment on above: Performed By: #### L 100.0500, L500.2500 ####[facility] [address] [place], [address] CBC W/Diff, Automatedon 0 Absolute Lymph 0.91 X10 3/uL Normal 0.83-4.51 [facility] Comment on above: Performed By: #### L 100.0100, L500.4050, L501.5200, L501.2300 ####[facility] [address] [place], [address] Absolute Neut 7.6 X10 3/uL Normal 2.0-7.7 [facility] Comment on above: Performed By: #### L 100.0100, L500.4050, L501.5200, L501.2300 ####[facility] [address] [place], [address] Basophils/100 WBC (Bld) 0.2 % Normal 0-1 [facility] Comment on above: Performed By: #### L 100.0100, L500.4050, L501.5200, L501.2300 ####[facility] [address] [place], [address] Eosinophils/100 WBC (Bld) 0.0 % Normal 0-5 [facility] Comment on above: Performed By: #### L 100.0100, L500.4050, L501.5200, L501.2300 ####[facility] [address] [place], [address] Erythrocyte distribution width (RBC) [Ratio] 17.3 % High 11.6-14.6 [facility] Comment on above: Performed By: #### L 100.0100, L500.4050, L501.5200, L501.2300 ####[facility] [address] [place], [address] Hematocrit (Bld) [Volume fraction] 26.9 % Low 37-47 [facility] Comment on above: Performed By: #### L 100.0100, L500.4050, L501.5200, L501.2300 ####[facility] [address] [place], [address] Hemoglobin (Bld) [Mass/Vol] 8.2 g/dL Low 12.0-15.0 [facility] Comment on above: Performed By: #### L 100.0100, L500.4050, L501.5200, L501.2300 ####[facility] [address] [place], [address] IG% 0.700 Normal 0.0-0.9 [facility] Comment on above: Result Comment: IG% - Immature Granulocytes (promyelocytes, myelocytes andmetamyelocytes) > 1% indicates that a LEFT SHIFT is Present. Performed By: #### L 100.0100, L500.4050, L501.5200, L501.2300 ####[facility] [address] [place], [address] Lymphocytes/100 WBC (Bld) 10.1 % Low 19-41 [facility] Comment on above: Performed By: #### L 100.0100, L500.4050, L501.5200, L501.2300 ####[facility] [address] [place], [address] MCH (RBC) [Entitic mass] 24.0 pg Low 27.0-32.0 [facility] Comment on above: Performed By: #### L 100.0100, L500.4050, L501.5200, L501.2300 ####[facility] [address] [place], [address] MCHC (RBC) [Mass/Vol] 30.5 g/dL Low 32-36 [facility] Comment on above: Performed By: #### L 100.0100, L500.4050, L501.5200, L501.2300 ####[facility] [address] [place], [address] MCV (RBC) [Entitic vol] 78.7 fL Low 81-99 [facility] Comment on above: Performed By: #### L 100.0100, L500.4050, L501.5200, L501.2300 ####[facility] [address] [place], [address] Monocytes/100 WBC (Bld) 5.5 % Normal 0-10 [facility] Comment on above: Performed By: #### L 100.0100, L500.4050, L501.5200, L501.2300 ####[facility] [address] [place], [address] Neutrophils/100 WBC (Bld) 83.5 % High 47-70 [facility] Comment on above: Performed By: #### L 100.0100, L500.4050, L501.5200, L501.2300 ####[facility] [address] [place], [address] Nucleated RBC (Bld) [#/Vol] 0 10*3/uL Normal 0-5 [facility] Comment on above: Performed By: #### L 100.0100, L500.4050, L501.5200, L501.2300 ####[facility] [address] [place], [address] Platelet mean volume (Bld) [Entitic vol] 9.2 fL Normal 6.2-12.0 [facility] Comment on above: Performed By: #### L 100.0100, L500.4050, L501.5200, L501.2300 ####[facility] [address] [place], [address] Platelets (Bld) [#/Vol] 492 10*3/uL High 150-450 [facility] Comment on above: Performed By: #### L 100.0100, L500.4050, L501.5200, L501.2300 ####[facility] [address] [place], [address] RBC (Bld) [#/Vol] 3.42 10*6/uL Low 4.2-5.4 [facility] Comment on above: Performed By: #### L 100.0100, L500.4050, L501.5200, L501.2300 ####[facility] [address] [place], [address] RDW SD 49.2 fl High 35.1-43.9 [facility] Comment on above: Performed By: #### L 100.0100, L500.4050, L501.5200, L501.2300 ####[facility] [address] [place], [address] WBC (Bld) [#/Vol] 9.1 10*3/uL Normal 4.4-11.0 [facility] Comment on above: Performed By: #### L 100.0100, L500.4050, L501.5200, L501.2300 ####[facility] [address] [place], [address] Chest 1 View (Portable)on Chest 1 View (Portable) Normal [facility] Comprehensive Metabolic Prof ilon 04-27-2024 Albumin [Mass/Vol] 1.9 g/dL Low 3.2-5.0 [facility] Comment on above: Performed By: #### L 100.0100, L500.4050, L501.5200, L501.2300 ####[facility] [address] [place], [address] Albumin/Globulin [Mass ratio] 0.4 {ratio} Low 0.9-2.4 [facility] Comment on above: Performed By: #### L 100.0100, L500.4050, L501.5200, L501.2300 ####[facility] [address] [place], [address] ALK P 73 U/L Normal 45-117 [facility] Comment on above: Performed By: #### L 100.0100, L500.4050, L501.5200, L501.2300 ####[facility] [address] [place], [address] ALT [Catalytic activity/Vol] 9 U/L Low 13-56 [facility] Comment on above: Performed By: #### L 100.0100, L500.4050, L501.5200, L501.2300 ####[facility] [address] [place], [address] AST [Catalytic activity/Vol] 9 U/L Low 15-37 [facility] Comment on above: Performed By: #### L 100.0100, L500.4050, L501.5200, L501.2300 ####[facility] [address] [place], [address] Bilirubin [Mass/Vol] 0.20 mg/dL Normal 0.20-1.00 [facility] Comment on above: Result Comment: For patients on eltrombopag therapy, use of Dimension Thurmond TBIL is not recommended. Performed By: #### L 100.0100, L500.4050, L501.5200, L501.2300 ####[facility] [address] [place], [address] BUN/CRE 19.0 RATIO Normal 10-20 [facility] Comment on above: Performed By: #### L 100.0100, L500.4050, L501.5200, L501.2300 ####[facility] [address] [place], [address] CA,Total 8.4 mg/dL Low 8.5-10.1 [facility] Comment on above: Performed By: #### L 100.0100, L500.4050, L501.5200, L501.2300 ####[facility] [address] [place], [address] Chloride [Moles/Vol] 108 mmol/L High 98-107 [facility] Comment on above: Performed By: #### L 100.0100, L500.4050, L501.5200, L501.2300 ####[facility] [address] [place], [address] CO2 [Moles/Vol] 24.0 mmol/L Normal 21.0-32.0 [facility] Comment on above: Performed By: #### L 100.0100, L500.4050, L501.5200, L501.2300 ####[facility] [address] [place], [address] Creatinine [Mass/Vol] 0.79 mg/dL Normal 0.55-1.02 [facility] Comment on above: Result Comment: The validity of the calculated GFR GFRAA in patients over70 years has not been determined. Clinical correlation isessential. Performed By: #### L 100.0100, L500.4050, L501.5200, L501.2300 ####[facility] [address] [place], [address] ECRCL 48.34 ml/min Normal [facility] Comment on above: Performed By: #### L 100.0100, L500.4050, L501.5200, L501.2300 ####[facility] [address] [place], [address] EST GFR - AA 93 mL/min Normal >60 [facility] Comment on above: Result Comment: Afri can [place] GFR Calc Performed By: #### L 100.0100, L500.4050, L501.5200, L501.2300 ####[facility] [address] [place], [address] GAP 6 Normal 5-15 [facility] Comment on above: Performed By: #### L 100.0100, L500.4050, L501.5200, L501.2300 ####[facility] [address] [place], [address] GFR/1.73 sq M.predicted among non-blacks MDRD (S/P/Bld) [Vol rate/Area] 77 mL/min/{1.73_m2} Normal >60 [facility] Comment on above: Result Comment: Non- GFR Calc Performed By: #### L 100.0100, L500.4050, L501.5200, L501.2300 ####[facility] [address] [place], [address] Globulin (S) [Mass/Vol] 4.6 g/dL High 2.2-4.2 [facility] Comment on above: Performed By: #### L 100.0100, L500.4050, L501.5200, L501.2300 ####[facility] [address] [place], [address] Glucose [Mass/Vol] 148 mg/dL High 74-106 [facility] Comment on above: Result Comment: Fast ing Glucose result greater than or equal to 126 mg/dLsuggests DIABETES MELLITUS per A.D.A. criteria. Performed By: #### L 100.0100, L500.4050, L501.5200, L501.2300 ####[facility] [address] [place], [address] Potassium [Moles/Vol] 4.2 mmol/L Normal 3.5-5.1 [facility] Comment on above: Performed By: #### L 100.0100, L500.4050, L501.5200, L501.2300 ####[facility] [address] [place], [address] Sodium [Moles/Vol] 139 mmol/L Normal 136-145 [facility] Comment on above: Performed By: #### L 100.0100, L500.4050, L501.5200, L501.2300 ####[facility] [address] [place], [address] T PROT 6.5 g/dL Normal 6.4-8.2 [facility] Comment on above: Performed By: #### L 100.0100, L500.4050, L501.5200, L501.2300 ####[facility] [address] [place], [address] Urea nitrogen [Mass/Vol] 15 mg/dL Normal 7-18 [facility] Comment on above: Performed By: #### L 100.0100, L500.4050, L501.5200, L501.2300 ####[facility] [address] [place], [address] Magnesiumon 04-27-2024 Magnesium [Mass/Vol] 2.0 mg/dL Normal 1.6-2.6 [facility] Comment on above: Performed By: #### L 100.0100, L500.4050, L501.5200, L501.2300 ####[facility] [address] [place], [address] Phosphoruson 04-27-2024 Phosphate [Mass/Vol] 2.4 mg/dL Low 2.5-4.9 [facility] Comment on above: Performed By: #### L 100.0100, L500.4050, L501.5200, L501.2300 ####[facility] [address] [place], [address] 12 Lead EKGon 04-26-2024 12 Lead EKG Normal [facility] BNP,B-Type NATRIURETIC PEPTI Viraj 04-26-2024 Natriuretic peptide B (Bld) [Mass/Vol] 54.2 pg/mL Normal 0-100 [facility] Comment on above: Performed By: #### L 100.0100, L503.6620 ####[facility] [address] [place], [address] Basic Metabolic Profile (BMP )on 04-26-2024 BUN/CRE 21.4 RATIO High 10-20 [facility] Comment on above: Order Comment: 'TROP ' Serial specimen #1, #2 or #3: 1 Performed By: #### L 501.2450, L500.3400, L501.4020, L500.2500 ####[facility] [address] [place], [address] CA,Total 8.9 mg/dL Normal 8.5-10.1 [facility] Comment on above: Order Comment: 'TROP ' Serial specimen #1, #2 or #3: 1 Performed By: #### L 501.2450, L500.3400, L501.4020, L500.2500 ####[facility] [address] [place], [address] Chloride [Moles/Vol] 105 mmol/L Normal 98-107 [facility] Comment on above: Order Comment: 'TROP ' Serial specimen #1, #2 or #3: 1 Performed By: #### L 501.2450, L500.3400, L501.4020, L500.2500 ####[facility] [address] [place], [address] CO2 [Moles/Vol] 25.0 mmol/L Normal 21.0-32.0 [facility] Comment on above: Order Comment: 'TROP ' Serial specimen #1, #2 or #3: 1 Performed By: #### L 501.2450, L500.3400, L501.4020, L500.2500 ####[facility] [address] [place], [address] Creatinine [Mass/Vol] 1.12 mg/dL High 0.55-1.02 [facility] Comment on above: Order Comment: 'TROP ' Serial specimen #1, #2 or #3: 1 Result Comment: The validity of the calculated GFR GFRAA in patients over70 years has not been determined. Clinical correlation isessential. Performed By: #### L 501.2450, L500.3400, L501.4020, L500.2500 ####[facility] [address] [place], [address] ECRCL 34.53 ml/min Normal [facility] Comment on above: Order Comment: 'TROP ' Serial specimen #1, #2 or #3: 1 Performed By: #### L 501.2450, L500.3400, L501.4020, L500.2500 ####[facility] [address] [place], [address] EST GFR - AA 62 mL/min Normal >60 [facility] Comment on above: Order Comment: 'TROP ' Serial specimen #1, #2 or #3: 1 Result Comment: Afri can [place] GFR Calc Performed By: #### L 501.2450, L500.3400, L501.4020, L500.2500 ####[facility] [address] [place], [address] GAP 7 Normal 5-15 [facility] Comment on above: Order Comment: 'TROP ' Serial specimen #1, #2 or #3: 1 Performed By: #### L 501.2450, L500.3400, L501.4020, L500.2500 ####[facility] [address] [place], [address] GFR/1.73 sq M.predicted among non-blacks MDRD (S/P/Bld) [Vol rate/Area] 51 mL/min/{1.73_m2} Low >60 [facility] Comment on above: Order Comment: 'TROP ' Serial specimen #1, #2 or #3: 1 Result Comment: Non- GFR Calc Performed By: #### L 501.2450, L500.3400, L501.4020, L500.2500 ####[facility] [address] [place], [address] Glucose [Mass/Vol] 133 mg/dL High 74-106 [facility] Comment on above: Order Comment: 'TROP ' Serial specimen #1, #2 or #3: 1 Result Comment: Fast ing Glucose result greater than or equal to 126 mg/dLsuggests DIABETES MELLITUS per A.D.A. criteria. Performed By: #### L 501.2450, L500.3400, L501.4020, L500.2500 ####[facility] [address] [place], [address] Potassium [Moles/Vol] 3.6 mmol/L Normal 3.5-5.1 [facility] Comment on above: Order Comment: 'TROP ' Serial specimen #1, #2 or #3: 1 Performed By: #### L 501.2450, L500.3400, L501.4020, L500.2500 ####[facility] [address] [place], [address] Sodium [Moles/Vol] 138 mmol/L Normal 136-145 [facility] Comment on above: Order Comment: 'TROP ' Serial specimen #1, #2 or #3: 1 Performed By: #### L 501.2450, L500.3400, L501.4020, L500.2500 ####[facility] [address] [place], [address] Urea nitrogen [Mass/Vol] 24 mg/dL High 7-18 [facility] Comment on above: Order Comment: 'TROP ' Serial specimen #1, #2 or #3: 1 Performed By: #### L 501.2450, L500.3400, L501.4020, L500.2500 ####[facility] [address] [place], [address] CBC W/Diff, Automatedon 12-3 SMEAR COMMENT SCANNED Normal [facility] Comment on above: Result Comment: RARE BANDS NOTED Performed By: #### L 100.0100, L503.6620 ####[facility] [address] [place], [address] Chest 1 View (Portable)on Chest 1 View (Portable) Normal [facility] Emergency Department Summary on 04-26-2024 Emergency Department Summary Normal [facility] Ferritinon 04-26-2024 Ferritin [Mass/Vol] 50 ng/mL Normal 8-252 [facility] Comment on above: Performed By: #### L 100.9950, L503.6030, L503.6550 ####[facility] [address] [place], [address] H AND P Exam - Hospitaliston 04-26-2024 H&P Exam - Hospitalist Normal [facility] Iron+Iron Binding Capacityon 04-26-2024 Iron [Mass/Vol] 15 ug/dL Low 50-170 [facility] Comment on above: Performed By: #### L 100.9950, L503.6030, L503.6550 ####[facility] [address] [place], [address] IRON SATURATION 4.2 Low 15.0-55.0 [facility] Comment on above: Performed By: #### L 100.9950, L503.6030, L503.6550 ####[facility] [address] [place], [address] TIBC 353 ug/dL Normal 250-450 [facility] Comment on above: Performed By: #### L 100.9950, L503.6030, L503.6550 ####[facility] [address] [place], [address] L501.4020on 04-26-2024 TROPONIN-I HS 8 pg/mL Normal 3.0-54.0 [facility] Comment on above: Order Comment: 'TROP ' Serial specimen #1, #2 or #3: 1 Result Comment: Plea Note: New Test Units and Gender Specific Reference Ranges. For more information see Policy Stat Procedure Thur[place] High Sensitivity Troponin (TNIH) and attachments. Performed By: #### L 501.2450, L500.3400, L501.4020, L500.2500 ####[facility] [address] [place], [address] Lactic Acidon 04-26-2024 Lactate [Moles/Vol] 1.2 mmol/L Normal 0.4-1.9 [facility] Comment on above: Performed By: #### L 503.6005 ####[facility] [address] [place], [address] Lactate [Moles/Vol] 2.3 mmol/L Invalid Interpretation Code 0.4-1.9 [facility] Comment on above: Order Comment: Y Result Comment: Crit ical Result(s) Called at: 18:15:33 04/26/2024 by: IRIS TO DEISY VICTOR. Results read back by same. Performed By: #### L 503.6005 ####[facility] [address] [place], [address] Lipaseon 04-26-2024 Lipase [Catalytic activity/Vol] U/L Low 13-75 [facility] Comment on above: Order Comment: 'TROP ' Serial specimen #1, #2 or #3: 1 Result Comment: Alex gay note:LIPASE revised reference range effective 22.New Lipase methodology. Expected to produce lower valuesthan the previous assay method.NEW Reference Range: 13 - 75 U/L Performed By: #### L 501.2450, L500.3400, L501.4020, L500.2500 ####[facility] [address] [place], [address] Liver Profileon 04-26-2024 Albumin [Mass/Vol] 2.2 g/dL Low 3.2-5.0 [facility] Comment on above: Order Comment: 'TROP ' Serial specimen #1, #2 or #3: 1 Performed By: #### L 501.2450, L500.3400, L501.4020, L500.2500 ####[facility] [address] [place], [address] ALK P 79 U/L Normal 45-117 [facility] Comment on above: Order Comment: 'TROP ' Serial specimen #1, #2 or #3: 1 Performed By: #### L 501.2450, L500.3400, L501.4020, L500.2500 ####[facility] [address] [place], [address] ALT [Catalytic activity/Vol] 13 U/L Normal 13-56 [facility] Comment on above: Order Comment: 'TROP ' Serial specimen #1, #2 or #3: 1 Performed By: #### L 501.2450, L500.3400, L501.4020, L500.2500 ####[facility] [address] [place], [address] AST [Catalytic activity/Vol] 11 U/L Low 15-37 [facility] Comment on above: Order Comment: 'TROP ' Serial specimen #1, #2 or #3: 1 Performed By: #### L 501.2450, L500.3400, L501.4020, L500.2500 ####[facility] [address] [place], [address] Bilirubin [Mass/Vol] 0.20 mg/dL Normal 0.20-1.00 [facility] Comment on above: Order Comment: 'TROP ' Serial specimen #1, #2 or #3: 1 Result Comment: For patients on eltrombopag therapy, use of Dimension Thurmond TBIL is not recommended. Performed By: #### L 501.2450, L500.3400, L501.4020, L500.2500 ####[facility] [address] [place], [address] Bilirubin.direct [Mass/Vol] 0.07 mg/dL Normal 0.00-0.30 [facility] Comment on above: Order Comment: 'TROP ' Serial specimen #1, #2 or #3: 1 Performed By: #### L 501.2450, L500.3400, L501.4020, L500.2500 ####[facility] [address] [place], [address] Globulin (S) [Mass/Vol] 4.3 g/dL High 2.2-4.2 [facility] Comment on above: Order Comment: 'TROP ' Serial specimen #1, #2 or #3: 1 Performed By: #### L 501.2450, L500.3400, L501.4020, L500.2500 ####[facility] [address] [place], [address] T PROT 6.5 g/dL Normal 6.4-8.2 [facility] Comment on above: Order Comment: 'TROP ' Serial specimen #1, #2 or #3: 1 Performed By: #### L 501.2450, L500.3400, L501.4020, L500.2500 ####[facility] [address] [place], [address] M100.678on 04-26-2024 M100.678 Normal [facility] Comment on above: Performed By: #### M 100.678 ####[facility] [address] [place], [address] Retic Panelon 04-26-2024 IM RET FRACTION 18.20 High 3.00-15.90 [facility] Comment on above: Performed By: #### L 100.9950, L503.6030, L503.6550 ####[facility] [address] [place], [address] RET-HE 20.8 pg Low 30-35 [facility] Comment on above: Performed By: #### L 100.9950, L503.6030, L503.6550 ####[facility] [address] [place], [address] Retic Count 1.65 High 0.5-1.5 [facility] Comment on above: Performed By: #### L 100.9950, L503.6030, L503.6550 ####[facility] [address] [place], [address] Venous Blood Gason 4 Blood Gas Type CHANTEL Normal [facility] Comment on above: Performed By: #### L 0.0810 ####[facility] [address] [place], [address] CO2 [Moles/Vol] 22 mmol/L Low 23-33 [facility] Comment on above: Performed By: #### L 8999.0810 ####[facility] [address] [place], [address] FI02 6.0 Normal [facility] Comment on above: Performed By: #### L 8999.0810 ####[facility] [address] [place], [address] HCO3 (Bld) [Moles/Vol] 21 mmol/L Low 22-26 [facility] Comment on above: Performed By: #### L 8999.0810 ####[facility] [address] [place], [address] O2 Delivery Dev Cannula Normal [facility] Comment on above: Performed By: #### L 8999.0810 ####[facility] [address] [place], [address] [facility] Comment on above: Performed By: #### L 8999.0810 ####[facility] [address] [place], [address] VBG BE -4 mmol/L Low -1.0-3.5 [facility] Comment on above: Performed By: #### L 9000.0810 ####[facility] [address] [place], [address] VBG pCO2 35.5 mmHg Low 41-51 [facility] Comment on above: Performed By: #### L 9000.0810 ####[facility] [address] [place], [address] VBG pH 7.38 Normal 7.32-7.42 [facility] Comment on above: Performed By: #### L 9000.0810 ####[facility] [address] [place], [address] VBG PO2 29 mmHg Normal 25-40 [facility] Comment on above: Performed By: #### L 9000.0810 ####[facility] [address] [place], [address] VBG SO2 55 Normal 50-70 [facility] Comment on above: Performed By: #### L 9000.0810 ####[facility] [address] [place], [address] Vitamin B12on 04-12-2024 Cobalamin (Vitamin B12) [Mass/Vol] 169 pg/mL Low 211-911 [facility] Comment on above: Performed By: #### L 501.5200, L501.96784, L506.0400, L100.0100, L500.4050, L501.9520, L501.2300, L503.6150, L503.6550, L503.0105 ####[facility] [address] [place], [address] CBC W/Diff, Automatedon 12- Anisocytosis Ql (Bld) RARE Normal [facility] Comment on above: Performed By: #### L 501.5200, L501.35423, L506.0400, L100.0100, L500.4050, L501.9520, L501.2300, L503.6150, L503.6550, L503.0105 ####[facility] [address] [place], [address] MICROCYTIC RARE Normal [facility] Comment on above: Performed By: #### L 501.5200, L501.79914, L506.0400, L100.0100, L500.4050, L501.9520, L501.2300, L503.6150, L503.6550, L503.0105 ####[facility] [address] [place], [address] PLT EST MOD INC Normal ADEQ [facility] Comment on above: Performed By: #### L 501.5200, L501.77626, L506.0400, L100.0100, L500.4050, L501.9520, L501.2300, L503.6150, L503.6550, L503.0105 ####[facility] [address] [place], [place], [phone] RED CELL MORPH N CYTIC Normal NORM C C [facility] Comment on above: Performed By: #### L 501.5200, L501.37203, L506.0400, L100.0100, L500.4050, L501.9520, L501.2300, L503.6150, L503.6550, L503.0105 ####[facility] [address] [place], [address] SMEAR COMMENT SEE COMMENT Normal [facility] Comment on above: Result Comment: NEUT ROPHILIA NOTED Performed By: #### L 501.5200, L501.28398, L506.0400, L100.0100, L500.4050, L501.9520, L501.2300, L503.6150, L503.6550, L503.0105 ####[facility] [address] [place], [address] Comprehensive Metabolic Prof ilon 04-11-2024 Albumin [Mass/Vol] 2.5 g/dL Low 3.2-5.0 [facility] Comment on above: Performed By: #### L 501.5200, L501.91900, L506.0400, L100.0100, L500.4050, L501.9520, L501.2300, L503.6150, L503.6550, L503.0105 ####[facility] [address] [place], [address] Albumin/Globulin [Mass ratio] 0.6 {ratio} Low 0.9-2.4 [facility] Comment on above: Performed By: #### L 501.5200, L501.69880, L506.0400, L100.0100, L500.4050, L501.9520, L501.2300, L503.6150, L503.6550, L503.0105 ####[facility] [address] [place], [address] ALK P 54 U/L Normal 45-117 [facility] Comment on above: Performed By: #### L 501.5200, L501.55034, L506.0400, L100.0100, L500.4050, L501.9520, L501.2300, L503.6150, L503.6550, L503.0105 ####[facility] [address] [place], [address] ALT [Catalytic activity/Vol] 21 U/L Normal 13-56 [facility] Comment on above: Performed By: #### L 501.5200, L501.74597, L506.0400, L100.0100, L500.4050, L501.9520, L501.2300, L503.6150, L503.6550, L503.0105 ####[facility] [address] [place], [address] AST [Catalytic activity/Vol] 19 U/L Normal 15-37 [facility] Comment on above: Performed By: #### L 501.5200, L501.78530, L506.0400, L100.0100, L500.4050, L501.9520, L501.2300, L503.6150, L503.6550, L503.0105 ####[facility] [address] [place], [address] Bilirubin [Mass/Vol] 0.20 mg/dL Normal 0.20-1.00 [facility] Comment on above: Result Comment: For patients on eltrombopag therapy, use of Dimension Thur[place] TBIL is not recommended. Performed By: #### L 501.5200, L501.43539, L506.0400, L100.0100, L500.4050, L501.9520, L501.2300, L503.6150, L503.6550, L503.0105 ####[facility] [address] [place], [address] BUN/CRE 26.4 RATIO High 10-20 [facility] Comment on above: Performed By: #### L 501.5200, L501.16177, L506.0400, L100.0100, L500.4050, L501.9520, L501.2300, L503.6150, L503.6550, L503.0105 ####[facility] [address] [place], [address] CA,Total 8.1 mg/dL Low 8.5-10.1 [facility] Comment on above: Performed By: #### L 501.5200, L501.19425, L506.0400, L100.0100, L500.4050, L501.9520, L501.2300, L503.6150, L503.6550, L503.0105 ####[facility] [address] [place], [address] Chloride [Moles/Vol] 109 mmol/L High 98-107 [facility] Comment on above: Performed By: #### L 501.5200, L501.84355, L506.0400, L100.0100, L500.4050, L501.9520, L501.2300, L503.6150, L503.6550, L503.0105 ####[facility] [address] [place], [address] CO2 [Moles/Vol] 27.0 mmol/L Normal 21.0-32.0 [facility] Comment on above: Performed By: #### L 501.5200, L501.01242, L506.0400, L100.0100, L500.4050, L501.9520, L501.2300, L503.6150, L503.6550, L503.0105 ####[facility] [address] [place], [address] Creatinine [Mass/Vol] 1.10 mg/dL High 0.55-1.02 [facility] Comment on above: Result Comment: The validity of the calculated GFR GFRAA in patients over70 years has not been determined. Clinical correlation isessential. Performed By: #### L 501.5200, L501.88556, L506.0400, L100.0100, L500.4050, L501.9520, L501.2300, L503.6150, L503.6550, L503.0105 ####[facility] [address] [place], [address] EST GFR - AA 63 mL/min Normal >60 [facility] Comment on above: Result Comment: Afri can Puerto [place]ican GFR Calc Performed By: #### L 501.5200, L501.47376, L506.0400, L100.0100, L500.4050, L501.9520, L501.2300, L503.6150, L503.6550, L503.0105 ####[facility] [address] [place], [place], [phone] GAP 5 Normal 5-15 [facility] Comment on above: Performed By: #### L 501.5200, L501.14108, L506.0400, L100.0100, L500.4050, L501.9520, L501.2300, L503.6150, L503.6550, L503.0105 ####[facility] [address] [place], [place], [phone]) GFR/1.73 sq M.predicted among non-blacks MDRD (S/P/Bld) [Vol rate/Area] 52 mL/min/{1.73_m2} Low >60 [facility] Comment on above: Result Comment: Non- GFR Calc Performed By: #### L 501.5200, L501.68849, L506.0400, L100.0100, L500.4050, L501.9520, L501.2300, L503.6150, L503.6550, L503.0105 ####[facility] [address] [place], [place], [id number] Globulin (S) [Mass/Vol] 3.9 g/dL Normal 2.2-4.2 [facility] Comment on above: Performed By: #### L 501.5200, L501.34225, L506.0400, L100.0100, L500.4050, L501.9520, L501.2300, L503.6150, L503.6550, L503.0105 ####[facility] [address] [place], [place], [phone]) Glucose [Mass/Vol] 144 mg/dL High 74-106 [facility] Comment on above: Result Comment: Fast ing Glucose result greater than or equal to 126 mg/dLsuggests DIABETES MELLITUS per A.D.A. criteria. Performed By: #### L 501.5200, L501.88395, L506.0400, L100.0100, L500.4050, L501.9520, L501.2300, L503.6150, L503.6550, L503.0105 ####[facility] [address] [place], [address] Potassium [Moles/Vol] 4.0 mmol/L Normal 3.5-5.1 [facility] Comment on above: Performed By: #### L 501.5200, L501.64994, L506.0400, L100.0100, L500.4050, L501.9520, L501.2300, L503.6150, L503.6550, L503.0105 ####[facility] [address] [place], [address] Sodium [Moles/Vol] 141 mmol/L Normal 136-145 [facility] Comment on above: Performed By: #### L 501.5200, L501.26594, L506.0400, L100.0100, L500.4050, L501.9520, L501.2300, L503.6150, L503.6550, L503.0105 ####[facility] [address] [place], [address] T PROT 6.4 g/dL Normal 6.4-8.2 [facility] Comment on above: Performed By: #### L 501.5200, L501.17071, L506.0400, L100.0100, L500.4050, L501.9520, L501.2300, L503.6150, L503.6550, L503.0105 ####[facility] [address] [place], [address] Urea nitrogen [Mass/Vol] 29 mg/dL High 7-18 [facility] Comment on above: Performed By: #### L 501.5200, L501.88597, L506.0400, L100.0100, L500.4050, L501.9520, L501.2300, L503.6150, L503.6550, L503.0105 ####[facility] [address] [place], [address] Ferritinon 04-11-2024 Ferritin [Mass/Vol] 7 ng/mL Low 8-252 [facility] Comment on above: Performed By: #### L 501.5200, L501.26666, L506.0400, L100.0100, L500.4050, L501.9520, L501.2300, L503.6150, L503.6550, L503.0105 ####[facility] [address] [place], [address] Free T3on 04-11-2024 Free T3 [Mass/Vol] 0.9 pg/mL Low 2.18-3.98 [facility] Comment on above: Performed By: #### L 501.5200, L501.56847, L506.0400, L100.0100, L500.4050, L501.9520, L501.2300, L503.6150, L503.6550, L503.0105 ####[facility] [address] [place], [address] Ironon 04-11-2024 Iron [Mass/Vol] 31 ug/dL Low 50-170 [facility] Comment on above: Performed By: #### L 501.5200, L501.47529, L506.0400, L100.0100, L500.4050, L501.9520, L501.2300, L503.6150, L503.6550, L503.0105 ####[facility] [address] [place], [address] Magnesiumon 04-11-2024 Magnesium [Mass/Vol] 2.1 mg/dL Normal 1.6-2.6 [facility] Comment on above: Performed By: #### L 501.5200, L501.96797, L506.0400, L100.0100, L500.4050, L501.9520, L501.2300, L503.6150, L503.6550, L503.0105 ####[facility] [address] [place], [address] Phosphoruson 04-11-2024 Phosphate [Mass/Vol] 3.4 mg/dL Normal 2.5-4.9 [facility] Comment on above: Performed By: #### L 501.5200, L501.71361, L506.0400, L100.0100, L500.4050, L501.9520, L501.2300, L503.6150, L503.6550, L503.0105 ####[facility] [address] [place], [place], [address] T4 Free Directon 04-11-2024 T4 FREE DIRECT 0.75 ng/dL Low 0.76-1.46 [facility] Comment on above: Performed By: #### L 501.5200, L501.01915, L506.0400, L100.0100, L500.4050, L501.9520, L501.2300, L503.6150, L503.6550, L503.0105 ####[facility] [address] [place], [address] Thyroid Stim Hormone (TSH)on 04-11-2024 TSH 0.178 uIU/mL Low 0.358-3.740 [facility] Comment on above: Performed By: #### L 501.5200, L501.80784, L506.0400, L100.0100, L500.4050, L501.9520, L501.2300, L503.6150, L503.6550, L503.0105 ####[facility] [address] [place], [address] Shoulder min 2 Viewson 04-01 Shoulder min 2 Views Normal [facility] L501.4020on 03-31-2024 TROPONIN-I HS 10 pg/mL Normal 3.0-54.0 [facility] Comment on above: Result Comment: Isaaca se Note: New Test Units and Gender Specific Reference Ranges. For more information see Policy Stat Procedure Thurmond High Sensitivity Troponin (TNIH) and attachments. Performed By: #### L 501.4020 ####[facility] [address] [place], [address] 12 Lead EKGon 03-30-2024 12 Lead EKG Normal [facility] BNP,B-Type NATRIURETIC PEPTI Viraj 03-30-2024 Natriuretic peptide B (Bld) [Mass/Vol] 64.4 pg/mL Normal 0-100 [facility] Comment on above: Performed By: #### L 501.5425, L503.6620, L100.0100, L500.2500 ####[facility] [address] [place], [address] Basic Metabolic Profile (BMP )on 03-30-2024 BUN/CRE 27.2 RATIO High 10-20 [facility] Comment on above: Order Comment: 1Y Performed By: #### L 501.5425, L503.6620, L100.0100, L500.2500 ####[facility] [address] [place], [address] CA,Total 8.5 mg/dL Normal 8.5-10.1 [facility] Comment on above: Order Comment: 1Y Performed By: #### L 501.5425, L503.6620, L100.0100, L500.2500 ####[facility] [address] [place], [address] Chloride [Moles/Vol] 113 mmol/L High 98-107 [facility] Comment on above: Order Comment: 1Y Performed By: #### L 501.5425, L503.6620, L100.0100, L500.2500 ####[facility] [address] [place], [address] CO2 [Moles/Vol] 26.0 mmol/L Normal 21.0-32.0 [facility] Comment on above: Order Comment: 1Y Performed By: #### L 501.5425, L503.6620, L100.0100, L500.2500 ####[facility] [address] [place], [address] Creatinine [Mass/Vol] 0.99 mg/dL Normal 0.55-1.02 [facility] Comment on above: Order Comment: 1Y Result Comment: The validity of the calculated GFR GFRAA in patients over70 years has not been determined. Clinical correlation isessential. Performed By: #### L 501.5425, L503.6620, L100.0100, L500.2500 ####[facility] [address] [place], [address] ECRCL 42.88 ml/min Normal [facility] Comment on above: Order Comment: 1Y Performed By: #### L 501.5425, L503.6620, L100.0100, L500.2500 ####[facility] [address] [place], [address] EST GFR - AA 71 mL/min Normal >60 [facility] Comment on above: Order Comment: 1Y Result Comment: Afri can [place] GFR Calc Performed By: #### L 501.5425, L503.6620, L100.0100, L500.2500 ####[facility] [address] [place], [address] GAP 5 Normal 5-15 [facility] Comment on above: Order Comment: 1Y Performed By: #### L 501.5425, L503.6620, L100.0100, L500.2500 ####[facility] [address] [place], [address] GFR/1.73 sq M.predicted among non-blacks MDRD (S/P/Bld) [Vol rate/Area] 59 mL/min/{1.73_m2} Low >60 [facility] Comment on above: Order Comment: 1Y Result Comment: Non- GFR Calc Performed By: #### L 501.5425, L503.6620, L100.0100, L500.2500 ####[facility] [address] [place], [address] Glucose [Mass/Vol] 120 mg/dL High 74-106 [facility] Comment on above: Order Comment: 1Y Result Comment: Fast ing Glucose result from 100 to 125 mg/dLsuggests IMPAIRED HOMEOSTASIS per A.D.A. criteria. Performed By: #### L 501.5425, L503.6620, L100.0100, L500.2500 ####[facility] [address] [place], [address] Potassium [Moles/Vol] 3.5 mmol/L Normal 3.5-5.1 [facility] Comment on above: Order Comment: 1Y Performed By: #### L 501.5425, L503.6620, L100.0100, L500.2500 ####[facility] [address] [place], [address] Sodium [Moles/Vol] 143 mmol/L Normal 136-145 [facility] Comment on above: Order Comment: 1Y Performed By: #### L 501.5425, L503.6620, L100.0100, L500.2500 ####[facility] [address] [place], [address] Urea nitrogen [Mass/Vol] 27 mg/dL High 7-18 [facility] Comment on above: Order Comment: 1Y Performed By: #### L 501.5425, L503.6620, L100.0100, L500.2500 ####[facility] [address] [place], [address] CBC W/Diff, Automatedon 12-0 -2023 Absolute Lymph 4.50 X10 3/uL Normal 0.83-4.51 [facility] Comment on above: Performed By: #### L 501.5425, L503.6620, L100.0100, L500.2500 ####[facility] [address] [place], [address] Absolute Neut 3.5 X10 3/uL Normal 2.0-7.7 [facility] Comment on above: Performed By: #### L 501.5425, L503.6620, L100.0100, L500.2500 ####[facility] [address] [place], [address] Basophils/100 WBC (Bld) 0.8 % Normal 0-1 [facility] Comment on above: Performed By: #### L 501.5425, L503.6620, L100.0100, L500.2500 ####[facility] [address] [place], [address] Eosinophils/100 WBC (Bld) 2.5 % Normal 0-5 [facility] Comment on above: Performed By: #### L 501.5425, L503.6620, L100.0100, L500.2500 ####[facility] [address] [place], [address] Erythrocyte distribution width (RBC) [Ratio] 16.4 % High 11.6-14.6 [facility] Comment on above: Performed By: #### L 501.5425, L503.6620, L100.0100, L500.2500 ####[facility] [address] [place], [address] Hematocrit (Bld) [Volume fraction] 27.4 % Low 37-47 [facility] Comment on above: Performed By: #### L 501.5425, L503.6620, L100.0100, L500.2500 ####[facility] [address] [place], [address] Hemoglobin (Bld) [Mass/Vol] 8.2 g/dL Low 12.0-15.0 [facility] Comment on above: Performed By: #### L 501.5425, L503.6620, L100.0100, L500.2500 ####[facility] [address] [place], [address] IG% 0.200 Normal 0.0-0.9 [facility] Comment on above: Result Comment: IG% - Immature Granulocytes (promyelocytes, myelocytes andmetamyelocytes) > 1% indicates that a LEFT SHIFT is Present. Performed By: #### L 501.5425, L503.6620, L100.0100, L500.2500 ####[facility] [address] [place], [address] Lymphocytes/100 WBC (Bld) 47.0 % High 19-41 [facility] Comment on above: Performed By: #### L 501.5425, L503.6620, L100.0100, L500.2500 ####[facility] [address] [place], [address] MCH (RBC) [Entitic mass] 24.5 pg Low 27.0-32.0 [facility] Comment on above: Performed By: #### L 501.5425, L503.6620, L100.0100, L500.2500 ####[facility] [address] [place], [address] MCHC (RBC) [Mass/Vol] 29.9 g/dL Low 32-36 [facility] Comment on above: Performed By: #### L 501.5425, L503.6620, L100.0100, L500.2500 ####[facility] [address] [place], [address] MCV (RBC) [Entitic vol] 81.8 fL Normal 81-99 [facility] Comment on above: Performed By: #### L 501.5425, L503.6620, L100.0100, L500.2500 ####[facility] [address] [place], [address] Monocytes/100 WBC (Bld) 12.9 % High 0-10 [facility] Comment on above: Performed By: #### L 501.5425, L503.6620, L100.0100, L500.2500 ####[facility] [address] [place], [address] Neutrophils/100 WBC (Bld) 36.6 % Low 47-70 [facility] Comment on above: Performed By: #### L 501.5425, L503.6620, L100.0100, L500.2500 ####[facility] [address] [place], [address] Nucleated RBC (Bld) [#/Vol] 0 10*3/uL Normal 0-5 [facility] Comment on above: Performed By: #### L 501.5425, L503.6620, L100.0100, L500.2500 ####[facility] [address] [place], [address] Platelet mean volume (Bld) [Entitic vol] 9.8 fL Normal 6.2-12.0 [facility] Comment on above: Performed By: #### L 501.5425, L503.6620, L100.0100, L500.2500 ####[facility] [address] [place], [address] Platelets (Bld) [#/Vol] 495 10*3/uL High 150-450 [facility] Comment on above: Performed By: #### L 501.5425, L503.6620, L100.0100, L500.2500 ####[facility] [address] [place], [address] RBC (Bld) [#/Vol] 3.35 10*6/uL Low 4.2-5.4 [facility] Comment on above: Performed By: #### L 501.5425, L503.6620, L100.0100, L500.2500 ####[facility] [address] [place], [address] RDW SD 49.1 fl High 35.1-43.9 [facility] Comment on above: Performed By: #### L 501.5425, L503.6620, L100.0100, L500.2500 ####[facility] [address] [place], [address] WBC (Bld) [#/Vol] 9.6 10*3/uL Normal 4.4-11.0 [facility] Comment on above: Performed By: #### L 501.5425, L503.6620, L100.0100, L500.2500 ####[facility] [address] [place], [address] Chest PA and Lateralon 03-30 Chest PA and Lateral Normal [facility] Emergency Department Summary on 03-30-2024 Emergency Department Summary Normal [facility] L501.5425on 03-30-2024 TROPONIN-I HS 11 pg/mL Normal 3.0-54.0 [facility] Comment on above: Order Comment: 1Y Result Comment: Plea se Note: New Test Units and Gender Specific Reference Ranges. For more information see Policy Stat Procedure [place] High Sensitivity Troponin (TNIH) and attachments. Performed By: #### L 501.5425, L503.6620, L100.0100, L500.2500 ####[facility] [address] [place], [address] MR/BMS.BPon 03-22-2024 MR/BMS.BP Normal [facility] Pulmonary Visit Reporton Pulmonary Visit Report Normal [facility] Basic Metabolic Profile (BMP )on 03-14-2024 BUN Normal 11-11 [facility] Comment on above: Result Comment: Canc elled via OM: Order cancelled - Patient discharged Performed By: #### L 100.0100, L500.2500 ####[facility] [address] [place], [address] BUN/CRE Normal - [facility] Comment on above: Result Comment: Canc elled via OM: Order cancelled - Patient discharged Performed By: #### L 100.0100, L500.2500 ####[facility] [address] [place], [address] CA,Total Normal 8.5-10.1 [facility] Comment on above: Result Comment: Canc elled via OM: Order cancelled - Patient discharged Performed By: #### L 100.0100, L500.2500 ####[facility] [address] [place], [address] CL Normal 98-107 [facility] Comment on above: Result Comment: Canc elled via OM: Order cancelled - Patient discharged Performed By: #### L 100.0100, L500.2500 ####[facility] [address] [place], [address] CO2 Normal 21.0-32.0 [facility] Comment on above: Result Comment: Canc elled via OM: Order cancelled - Patient discharged Performed By: #### L 100.0100, L500.2500 ####[facility] [address] [place], [address] CREAT,SERUM Normal 0.55-1.02 [facility] Comment on above: Result Comment: Canc elled via OM: Order cancelled - Patient discharged Performed By: #### L 100.0100, L500.2500 ####[facility] [address] [place], [address] EST GFR Normal >60 [facility] Comment on above: Result Comment: Canc elled via OM: Order cancelled - Patient discharged Performed By: #### L 100.0100, L500.2500 ####[facility] [address] [place], [address] EST GFR - AA Normal >60 [facility] Comment on above: Result Comment: Canc elled via OM: Order cancelled - Patient discharged Performed By: #### L 100.0100, L500.2500 ####[facility] [address] [place], [address] GAP Normal 5-15 [facility] Comment on above: Result Comment: Canc elled via OM: Order cancelled - Patient discharged Performed By: #### L 100.0100, L500.2500 ####[facility] [address] [place], [address] GLU Normal 74-106 [facility] Comment on above: Result Comment: Canc elled via OM: Order cancelled - Patient discharged Performed By: #### L 100.0100, L500.2500 ####[facility] [address] [place], [address] Potassium Normal 3.5-5.1 [facility] Comment on above: Result Comment: Canc elled via OM: Order cancelled - Patient discharged Performed By: #### L 100.0100, L500.2500 ####[facility] [address] [place], [address] Basic Metabolic Profile (BMP) Normal 136-145 [facility] Comment on above: Result Comment: Canc elled via OM: Order cancelled - Patient discharged Performed By: #### L 100.0100, L500.2500 ####[facility] [address] [place], [address] CBC W/Diff, Automatedon 11- Absolute Neut Normal 2.0-7.7 [facility] Comment on above: Result Comment: Canc elled via OM: Order cancelled - Patient discharged Performed By: #### L 100.0100, L500.2500 ####[facility] [address] [place], [address] HCT Normal 37-47 [facility] Comment on above: Result Comment: Canc elled via OM: Order cancelled - Patient discharged Performed By: #### L 100.0100, L500.2500 ####[facility] [address] [place], [address] HGB Normal 12.0-15.0 [facility] Comment on above: Result Comment: Canc elled via OM: Order cancelled - Patient discharged Performed By: #### L 100.0100, L500.2500 ####[facility] [address] [place], [address] MCH Normal 27.0-32.0 [facility] Comment on above: Result Comment: Canc elled via OM: Order cancelled - Patient discharged Performed By: #### L 100.0100, L500.2500 ####[facility] [address] [place], [address] MCHC Normal 32-36 [facility] Comment on above: Result Comment: Canc elled via OM: Order cancelled - Patient discharged Performed By: #### L 100.0100, L500.2500 ####[facility] [address] [place], [address] MCV Normal 81-99 [facility] Comment on above: Result Comment: Canc elled via OM: Order cancelled - Patient discharged Performed By: #### L 100.0100, L500.2500 ####[facility] [address] [place], [address] NEUT% Normal 47-70 [facility] Comment on above: Result Comment: Canc elled via OM: Order cancelled - Patient discharged Performed By: #### L 100.0100, L500.2500 ####[facility] [address] [place], [address] PLT Normal 150-450 [facility] Comment on above: Result Comment: Canc elled via OM: Order cancelled - Patient discharged Performed By: #### L 100.0100, L500.2500 ####[facility] [address] [place], [address] RBC Normal 4.2-5.4 [facility] Comment on above: Result Comment: Canc elled via OM: Order cancelled - Patient discharged Performed By: #### L 100.0100, L500.2500 ####[facility] [address] [place], [address] RDW CV Normal 11.6-14.6 [facility] Comment on above: Result Comment: Canc elled via OM: Order cancelled - Patient discharged Performed By: #### L 100.0100, L500.2500 ####[facility] [address] [place], [address] RDW SD Normal 35.1-43.9 [facility] Comment on above: Result Comment: Canc elled via OM: Order cancelled - Patient discharged Performed By: #### L 100.0100, L500.2500 ####[facility] [address] [place], [address] WBC Normal 4.4-11.0 [facility] Comment on above: Result Comment: Canc elled via OM: Order cancelled - Patient discharged Performed By: #### L 100.0100, L500.2500 ####[facility] [address] [place], [address] Basic Metabolic Profile (BMP )on 03-13-2024 BUN Normal 7-18 [facility] Comment on above: Result Comment: Canc elled via OM: Order cancelled - Patient discharged Performed By: #### L 500.2500, L100.0100 ####[facility] [address] [place], [address] BUN/CRE Normal 10-20 [facility] Comment on above: Result Comment: Canc elled via OM: Order cancelled - Patient discharged Performed By: #### L 500.2500, L100.0100 ####[facility] [address] [place], [address] CA,Total Normal 8.5-10.1 [facility] Comment on above: Result Comment: Canc elled via OM: Order cancelled - Patient discharged Performed By: #### L 500.2500, L100.0100 ####[facility] [address] [place], [address] CL Normal 98-107 [facility] Comment on above: Result Comment: Canc elled via OM: Order cancelled - Patient discharged Performed By: #### L 500.2500, L100.0100 ####[facility] [address] [place], [address] CO2 Normal 21.0-32.0 [facility] Comment on above: Result Comment: Canc elled via OM: Order cancelled - Patient discharged Performed By: #### L 500.2500, L100.0100 ####[facility] [address] [place], [address] CREAT,SERUM Normal 0.55-1.02 [facility] Comment on above: Result Comment: Canc elled via OM: Order cancelled - Patient discharged Performed By: #### L 500.2500, L100.0100 ####[facility] [address] [place], [address] EST GFR Normal >60 [facility] Comment on above: Result Comment: Canc elled via OM: Order cancelled - Patient discharged Performed By: #### L 500.2500, L100.0100 ####[facility] [address] [place], [address] EST GFR - AA Normal >60 [facility] Comment on above: Result Comment: Canc elled via OM: Order cancelled - Patient discharged Performed By: #### L 500.2500, L100.0100 ####[facility] [address] [place], [address] GAP Normal 5-15 [facility] Comment on above: Result Comment: Canc elled via OM: Order cancelled - Patient discharged Performed By: #### L 500.2500, L100.0100 ####[facility] [address] [place], [address] GLU Normal 74-106 [facility] Comment on above: Result Comment: Canc elled via OM: Order cancelled - Patient discharged Performed By: #### L 500.2500, L100.0100 ####[facility] [address] [place], [address] Potassium Normal 3.5-5.1 [facility] Comment on above: Result Comment: Canc elled via OM: Order cancelled - Patient discharged Performed By: #### L 500.2500, L100.0100 ####[facility] [address] [place], [address] Basic Metabolic Profile (BMP) Normal 136-145 [facility] Comment on above: Result Comment: Canc elled via OM: Order cancelled - Patient discharged Performed By: #### L 500.2500, L100.0100 ####[facility] [address] [place], [address] CBC W/Diff, Automatedon 11- Absolute Neut Normal 2.0-7.7 [facility] Comment on above: Result Comment: Canc elled via OM: Order cancelled - Patient discharged Performed By: #### L 500.2500, L100.0100 ####[facility] [address] [place], [address] HCT Normal 37-47 [facility] Comment on above: Result Comment: Canc elled via OM: Order cancelled - Patient discharged Performed By: #### L 500.2500, L100.0100 ####[facility] [address] [place], [address] HGB Normal 12.0-15.0 [facility] Comment on above: Result Comment: Canc elled via OM: Order cancelled - Patient discharged Performed By: #### L 500.2500, L100.0100 ####[facility] [address] [place], [address] MCH Normal 27.0-32.0 [facility] Comment on above: Result Comment: Canc elled via OM: Order cancelled - Patient discharged Performed By: #### L 500.2500, L100.0100 ####[facility] [address] [place], [address] MCHC Normal 32-36 [facility] Comment on above: Result Comment: Canc elled via OM: Order cancelled - Patient discharged Performed By: #### L 500.2500, L100.0100 ####[facility] [address] [place], [address] MCV Normal 81-99 [facility] Comment on above: Result Comment: Canc elled via OM: Order cancelled - Patient discharged Performed By: #### L 500.2500, L100.0100 ####[facility] [address] [place], [address] NEUT% Normal 47-70 [facility] Comment on above: Result Comment: Canc elled via OM: Order cancelled - Patient discharged Performed By: #### L 500.2500, L100.0100 ####[facility] [address] [place], [address] PLT Normal 150-450 [facility] Comment on above: Result Comment: Canc elled via OM: Order cancelled - Patient discharged Performed By: #### L 500.2500, L100.0100 ####[facility] [address] [place], [address] RBC Normal 4.2-5.4 [facility] Comment on above: Result Comment: Canc elled via OM: Order cancelled - Patient discharged Performed By: #### L 500.2500, L100.0100 ####[facility] [address] [place], [address] RDW CV Normal 11.6-14.6 [facility] Comment on above: Result Comment: Canc elled via OM: Order cancelled - Patient discharged Performed By: #### L 500.2500, L100.0100 ####[facility] [address] [place], [address] RDW SD Normal 35.1-43.9 [facility] Comment on above: Result Comment: Canc elled via OM: Order cancelled - Patient discharged Performed By: #### L 500.2500, L100.0100 ####[facility] [address] [place], [address] WBC Normal 4.4-11.0 [facility] Comment on above: Result Comment: Canc elled via OM: Order cancelled - Patient discharged Performed By: #### L 500.2500, L100.0100 ####[facility] [address] [place], [address] Urine Cultureon 03-13-2024 URC Below infection leve l. GPC Poss Enterococcus sp [place] Count <1000 Normal [facility] Comment on above: Performed By: #### M 100.2200 ####[facility] [address] [place], [address] Basic Metabolic Profile (BMP )on 03-12-2024 BUN/CRE 16.1 RATIO Normal 10-20 [facility] Comment on above: Performed By: #### L 100.0100, L501.5200, L500.2500 ####[facility] [address] [place], [address] CA,Total 7.5 mg/dL Low 8.5-10.1 [facility] Comment on above: Performed By: #### L 100.0100, L501.5200, L500.2500 ####[facility] [address] [place], [address] Chloride [Moles/Vol] 109 mmol/L High 98-107 [facility] Comment on above: Performed By: #### L 100.0100, L501.5200, L500.2500 ####[facility] [address] [place], [address] CO2 [Moles/Vol] 25.0 mmol/L Normal 21.0-32.0 [facility] Comment on above: Performed By: #### L 100.0100, L501.5200, L500.2500 ####[facility] [address] [place], [address] Creatinine [Mass/Vol] 0.74 mg/dL Normal 0.55-1.02 [facility] Comment on above: Result Comment: The validity of the calculated GFR GFRAA in patients over70 years has not been determined. Clinical correlation isessential. Performed By: #### L 100.0100, L501.5200, L500.2500 ####[facility] [address] [place], [address] ECRCL 48.34 ml/min Normal [facility] Comment on above: Performed By: #### L 100.0100, L501.5200, L500.2500 ####[facility] [address] [place], [address] EST GFR - AA 99 mL/min Normal >60 [facility] Comment on above: Result Comment: Afri can [place] GFR Calc Performed By: #### L 100.0100, L501.5200, L500.2500 ####[facility] [address] [place], [address] GAP 4 Low 5-15 [facility] Comment on above: Performed By: #### L 100.0100, L501.5200, L500.2500 ####[facility] [address] [place], [address] GFR/1.73 sq M.predicted among non-blacks MDRD (S/P/Bld) [Vol rate/Area] 82 mL/min/{1.73_m2} Normal >60 [facility] Comment on above: Result Comment: Non- GFR Calc Performed By: #### L 100.0100, L501.5200, L500.2500 ####[facility] [address] [place], [address] Glucose [Mass/Vol] 93 mg/dL Normal 74-106 [facility] Comment on above: Performed By: #### L 100.0100, L501.5200, L500.2500 ####[facility] [address] [place], [address] Potassium [Moles/Vol] 3.9 mmol/L Normal 3.5-5.1 [facility] Comment on above: Performed By: #### L 100.0100, L501.5200, L500.2500 ####[facility] [address] [place], [address] Sodium [Moles/Vol] 138 mmol/L Normal 136-145 [facility] Comment on above: Performed By: #### L 100.0100, L501.5200, L500.2500 ####[facility] [address] [place], [address] Urea nitrogen [Mass/Vol] 12 mg/dL Normal 7-18 [facility] Comment on above: Performed By: #### L 100.0100, L501.5200, L500.2500 ####[facility] [address] [place], [address] CBC W/Diff, Automatedon 02-25 Absolute Lymph 1.26 X10 3/uL Normal 0.83-4.51 [facility] Comment on above: Performed By: #### L 100.0100, L501.5200, L500.2500 ####[facility] [address] [place], [address] Absolute Neut 8.3 X10 3/uL High 2.0-7.7 [facility] Comment on above: Performed By: #### L 100.0100, L501.5200, L500.2500 ####[facility] [address] [place], [address] Basophils/100 WBC (Bld) 0.4 % Normal 0-1 [facility] Comment on above: Performed By: #### L 100.0100, L501.5200, L500.2500 ####[facility] [address] [place], [address] Eosinophils/100 WBC (Bld) 1.0 % Normal 0-5 [facility] Comment on above: Performed By: #### L 100.0100, L501.5200, L500.2500 ####[facility] [address] [place], [address] Erythrocyte distribution width (RBC) [Ratio] 16.2 % High 11.6-14.6 [facility] Comment on above: Performed By: #### L 100.0100, L501.5200, L500.2500 ####[facility] [address] [place], [address] Hematocrit (Bld) [Volume fraction] 28.7 % Low 37-47 [facility] Comment on above: Performed By: #### L 100.0100, L501.5200, L500.2500 ####[facility] [address] [place], [address] Hemoglobin (Bld) [Mass/Vol] 9.0 g/dL Low 12.0-15.0 [facility] Comment on above: Performed By: #### L 100.0100, L501.5200, L500.2500 ####[facility] [address] [place], [address] IG% 0.700 Normal 0.0-0.9 [facility] Comment on above: Result Comment: IG% - Immature Granulocytes (promyelocytes, myelocytes andmetamyelocytes) > 1% indicates that a LEFT SHIFT is Present. Performed By: #### L 100.0100, L501.5200, L500.2500 ####[facility] [address] [place], [address] Lymphocytes/100 WBC (Bld) 12.0 % Low 19-41 [facility] Comment on above: Performed By: #### L 100.0100, L501.5200, L500.2500 ####[facility] [address] [place], [address] MCH (RBC) [Entitic mass] 25.4 pg Low 27.0-32.0 [facility] Comment on above: Performed By: #### L 100.0100, L501.5200, L500.2500 ####[facility] [address] [place], [address] MCHC (RBC) [Mass/Vol] 31.4 g/dL Low 32-36 [facility] Comment on above: Performed By: #### L 100.0100, L501.5200, L500.2500 ####[facility] [address] [place], [address] MCV (RBC) [Entitic vol] 81.1 fL Normal 81-99 [facility] Comment on above: Performed By: #### L 100.0100, L501.5200, L500.2500 ####[facility] [address] [place], [address] Monocytes/100 WBC (Bld) 7.3 % Normal 0-10 [facility] Comment on above: Performed By: #### L 100.0100, L501.5200, L500.2500 ####[facility] [address] [place], [address] Neutrophils/100 WBC (Bld) 78.6 % High 47-70 [facility] Comment on above: Performed By: #### L 100.0100, L501.5200, L500.2500 ####[facility] [address] [place], [address] Nucleated RBC (Bld) [#/Vol] 0 10*3/uL Normal 0-5 [facility] Comment on above: Performed By: #### L 100.0100, L501.5200, L500.2500 ####[facility] [address] [place], [address] Platelet mean volume (Bld) [Entitic vol] 9.6 fL Normal 6.2-12.0 [facility] Comment on above: Performed By: #### L 100.0100, L501.5200, L500.2500 ####[facility] [address] [place], [address] Platelets (Bld) [#/Vol] 446 10*3/uL Normal 150-450 [facility] Comment on above: Performed By: #### L 100.0100, L501.5200, L500.2500 ####[facility] [address] [place], [address] RBC (Bld) [#/Vol] 3.54 10*6/uL Low 4.2-5.4 [facility] Comment on above: Performed By: #### L 100.0100, L501.5200, L500.2500 ####[facility] [address] [place], [address] RDW SD 48.1 fl High 35.1-43.9 [facility] Comment on above: Performed By: #### L 100.0100, L501.5200, L500.2500 ####[facility] [address] [place], [address] WBC (Bld) [#/Vol] 10.5 10*3/uL Normal 4.4-11.0 [facility] Comment on above: Performed By: #### L 100.0100, L501.5200, L500.2500 ####[facility] [address] [place], [address] Magnesiumon 03-12-2024 Magnesium [Mass/Vol] 1.8 mg/dL Normal 1.6-2.6 [facility] Comment on above: Performed By: #### L 100.0100, L501.5200, L500.2500 ####[facility] [address] [place], [address] Phosphoruson 03-12-2024 Phosphate [Mass/Vol] 1.0 mg/dL Invalid Interpretation Code 2.5-4.9 [facility] Comment on above: Performed By: #### L 501.2300 ####[facility] [address] [place], [address] 12 Lead EKGon 03-11-2024 12 Lead EKG Normal [facility] Alcohol, Blood (Medical)-Ser umon 03-11-2024 SERUM ETOH < 3.0 Normal [facility] Comment on above: Result Comment: The serum:whole blood ethanol ratio is approximately 1.14and varies slightly with hematocrit.Medical Alcohol reference interval and critical value innon-tolerant individuals; 50 - 100 Impairment 100 Intoxication 100 - 250 Severe Poisoning 250 - 400 Deep/possible fatal coma Performed By: #### L 501.9100, L500.4050, L501.9520, L100.0100, L503.5510 ####[facility] [address] [place], [address] Ammoniaon 03-11-2024 Ammonia (P) [Mass/Vol] ug/dL Low - [facility] Comment on above: Performed By: #### L 501.9100, L500.4050, L501.9520, L100.0100, L503.5510 ####[facility] [address] [place], [address] Brain/Head without Contrasto n 03-11-2024 Brain/Head without Contrast Normal [facility] CBC W/Diff, Automatedon 02-25 Absolute Lymph 1.44 X10 3/uL Normal 0.83-4.51 [facility] Comment on above: Performed By: #### L 501.9100, L500.4050, L501.9520, L100.0100, L503.5510 ####[facility] [address] [place], [address] Absolute Neut 7.0 X10 3/uL Normal 2.0-7.7 [facility] Comment on above: Performed By: #### L 501.9100, L500.4050, L501.9520, L100.0100, L503.5510 ####[facility] [address] [place], [address] Basophils/100 WBC (Bld) 0.4 % Normal 0-1 [facility] Comment on above: Performed By: #### L 501.9100, L500.4050, L501.9520, L100.0100, L503.5510 ####[facility] [address] [place], [address] Eosinophils/100 WBC (Bld) 0.1 % Normal 0-5 [facility] Comment on above: Performed By: #### L 501.9100, L500.4050, L501.9520, L100.0100, L503.5510 ####[facility] [address] [place], [address] Erythrocyte distribution width (RBC) [Ratio] 16.1 % High 11.6-14.6 [facility] Comment on above: Performed By: #### L 501.9100, L500.4050, L501.9520, L100.0100, L503.5510 ####[facility] [address] [place], [address] Hematocrit (Bld) [Volume fraction] 29.7 % Low 37-47 [facility] Comment on above: Performed By: #### L 501.9100, L500.4050, L501.9520, L100.0100, L503.5510 ####[facility] [address] [place], [address] Hemoglobin (Bld) [Mass/Vol] 9.5 g/dL Low 12.0-15.0 [facility] Comment on above: Performed By: #### L 501.9100, L500.4050, L501.9520, L100.0100, L503.5510 ####[facility] [address] [place], [address] IG% 0.400 Normal 0.0-0.9 [facility] Comment on above: Result Comment: IG% - Immature Granulocytes (promyelocytes, myelocytes andmetamyelocytes) > 1% indicates that a LEFT SHIFT is Present. Performed By: #### L 501.9100, L500.4050, L501.9520, L100.0100, L503.5510 ####[facility] [address] [place], [address] Lymphocytes/100 WBC (Bld) 15.6 % Low 19-41 [facility] Comment on above: Performed By: #### L 501.9100, L500.4050, L501.9520, L100.0100, L503.5510 ####[facility] [address] [place], [address] MCH (RBC) [Entitic mass] 25.7 pg Low 27.0-32.0 [facility] Comment on above: Performed By: #### L 501.9100, L500.4050, L501.9520, L100.0100, L503.5510 ####[facility] [address] [place], [address] MCHC (RBC) [Mass/Vol] 32.0 g/dL Normal 32-36 [facility] Comment on above: Performed By: #### L 501.9100, L500.4050, L501.9520, L100.0100, L503.5510 ####[facility] [address] [place], [address] MCV (RBC) [Entitic vol] 80.3 fL Low 81-99 [facility] Comment on above: Performed By: #### L 501.9100, L500.4050, L501.9520, L100.0100, L503.5510 ####[facility] [address] [place], [address] Monocytes/100 WBC (Bld) 7.9 % Normal 0-10 [facility] Comment on above: Performed By: #### L 501.9100, L500.4050, L501.9520, L100.0100, L503.5510 ####[facility] [address] [place], [address] Neutrophils/100 WBC (Bld) 75.6 % High 47-70 [facility] Comment on above: Performed By: #### L 501.9100, L500.4050, L501.9520, L100.0100, L503.5510 ####[facility] [address] [place], [address] Nucleated RBC (Bld) [#/Vol] 0 10*3/uL Normal 0-5 [facility] Comment on above: Performed By: #### L 501.9100, L500.4050, L501.9520, L100.0100, L503.5510 ####[facility] [address] [place], [address] Platelet mean volume (Bld) [Entitic vol] 9.5 fL Normal 6.2-12.0 [facility] Comment on above: Performed By: #### L 501.9100, L500.4050, L501.9520, L100.0100, L503.5510 ####[facility] [address] [place], [address] Platelets (Bld) [#/Vol] 487 10*3/uL High 150-450 [facility] Comment on above: Performed By: #### L 501.9100, L500.4050, L501.9520, L100.0100, L503.5510 ####[facility] [address] [place], [address] RBC (Bld) [#/Vol] 3.70 10*6/uL Low 4.2-5.4 [facility] Comment on above: Performed By: #### L 501.9100, L500.4050, L501.9520, L100.0100, L503.5510 ####[facility] [address] [place], [address] RDW SD 46.5 fl High 35.1-43.9 [facility] Comment on above: Performed By: #### L 501.9100, L500.4050, L501.9520, L100.0100, L503.5510 ####[facility] [address] [place], [address] WBC (Bld) [#/Vol] 9.3 10*3/uL Normal 4.4-11.0 [facility] Comment on above: Performed By: #### L 501.9100, L500.4050, L501.9520, L100.0100, L503.5510 ####[facility] [address] [place], [address] [facility] Telephone (AGGERIHWW ) -------- CODI BLANK ([id number]) 1955 F Date Time Provider Department 03/11/24 RICARDO DANIELS AGGERIHWW During your visit today, we recorded the following information about you: Ricardo Daniels DO 03/11/2024 8:03 AM Signed Please help to inform patient, reviewed TSH from her PCP's office, TSH on 02/10/24 significantly elevated at 32.2 which could contributing to her significant mood disturbance. Please instructed patient to follow up with her PCP for continue thyroid dysfunction management, it is reasonable to repeat TSH to ensure level has improved, thank you DO Joe Maguire Kathryn, LPN 03/11/2024 8:37 AM Signed Patient notified and verbalized understanding. Patient had no further questions at this time. Cherelle ARVIND Diaz 03/11/2024 8:37 AM Allergies As of Date: 03/11/2024 Noted Allergy Reaction ADHESIVE TAPE (ROSINS) 04/16/2009 Comments: REDNESS BIAXIN (CLARITHROMYCIN) 03/14/2009 4 - Hives 9 - Itching Comments: Patient states she has previously tolerated a Z-pack, but states they have to do it twice for it to work CECLOR (CEFACLOR) 03/14/2009 4 - Hives 9 - Itching Comments: DOXYCYCLINE 03/14/2009 4 - Hives 9 - Itching PENICILLINS 03/14/2009 4 - Hives 9 - Itching SULFA DRUGS (SULFA (SULFONAMIDE A*03/14/2009 4 - Hives 9 - Itching Date Reviewed: 03/02/2024 Reviewed by: Lani Hernandez MA - Fully Assessed Reason for Visit: Orders [681] Results [95] Prescriptions as of 03/11/2024 - pantoprazole (PROTONIX) 40 mg grps Take 40 mg by mouth daily at 6 am. - DULoxetine (CYMBALTA) 60 mg capsule Take 60 mg by mouth two times a day. - busPIRone (BUSPAR) 10 mg tablet Take 1 tablet by mouth two times a day. - levothyroxine 125 mcg cap Take 125 mcg by mouth daily before breakfast. - azithromycin (ZITHROMAX) 250 mg tablet Take 250 mg by mouth every Thursday, Thursday, and Thursday. - baclofen 10 mg tablet Take 20 mg by mouth two times a day. - cholecalciferol, Vitamin D3, (VITAMIN D3) 1,250 mcg (50,000 unit) cap capsule Take 50,000 Units by mouth one time a week. - furosemide (LASIX) 40 mg tablet Take 1 tablet by mouth once daily. - atorvastatin (LIPITOR) 80 mg tablet Take 80 mg by mouth once daily. - linaCLOtide (LINZESS) 72 mcg capsule Take 1 capsule by mouth once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 pregabalin (LYRICA) 50 mg capsule Take 50 mg by mouth three times daily. - fluconazole (DIFLUCAN) 200 mg tablet Take 200 mg by mouth one time a week. - busPIRone (BUSPAR) 10 mg tablet Take 10 mg by mouth twice daily as needed (anxiety). - hydrOXYchloroQUINE (PLAQUENIL) 200 mg tablet Take 200 mg by mouth twice daily. - hydrOXYzine pamoate (VISTARIL) 50 mg capsule Take 50 mg by mouth once daily. - liothyronine (CYTOMEL) 5 mcg tablet Take 10 mcg by mouth once daily. - montelukast (SINGULAIR) 10 mg tablet Take 10 mg by mouth daily at bedtime. - topiramate (TOPAMAX) 50 mg tablet Take 50 mg by mouth once daily. - PEN NEEDLE 31 gauge x 5/16 ndle TYMLOS PEN NEEDLES 31G X 5/16 - melatonin 3 mg tablet Take 2 tablets by mouth at bedtime as needed (Insomnia). - acetaminophen (TYLENOL) 500 mg tablet Take 2 tablets by mouth every 6 hours. - diclofenac, EC, (VOLTAREN) 75 mg EC tablet Take 75 mg by mouth twice daily. - loratadine (CLARITIN) 10 mg tablet Take 10 mg by mouth once daily. - furosemide (LASIX) 20 mg tablet Take 20 mg by mouth once daily. - mometasone-formoterol (DULERA) 100-5 mcg/actuation inhaler Inhale 2 Puffs as instructed twice daily. - clopidogrel (PLAVIX) 75 mg tablet Take 75 mg by mouth once daily. - metoprolol tartrate, short acting, (LOPRESSOR) 25 mg tablet Take 25 mg by mouth twice daily. Meds Comments as of 03/07/2019: Reviewed medication list with patient and discussed discharge list of medications from previous admission. Problem List As Of Date 02/25/2024 Noted Resolved Cellulitis, Trunk [L03.319] 03/15/2009 Spinal stenosis of lumbar region [M48.061] 07/23/2010 Post-laminectomy syndrome [M96.1] 07/23/2010 Lumbar radiculopathy [M54.16] 07/23/2010 Trimalleolar fracture of ankle, closed [S82.853*10/19/2016 11/11/2017 Surgical wound dehiscence [T81.31XA] 11/20/2016 Post-operative state [Z98.890] 11/20/2016 Closed right ankle fracture [S82.891A] 10/29/2016 11/11/2017 Osteomyelitis of ankle (HCC) [M86.9] 03/10/2017 11/11/2017 Chronic multifocal osteomyelitis of right ankle*09/10/2017 11/11/2017 Ankle osteomyelitis, right (HCC) [M86.9] 09/30/2017 11/11/2017 Nicotine use disorder, F17.2 [F17.200] 10/01/2017 Acute and chronic respiratory failure with hypo*10/02/2017 Obesity, Class I, BMI 30-34.9 [E66.811] 10/02/2017 Other emphysema (HCC) [J43.8] 10/19/2017 History of right below knee amputation (HCC) [Z*11/11/2017 AMS (altered mental status) [R41.82] 02/14/2019 02/15/2019 Major depressive disorder [F32.9] 03/07/2019 Age-related osteoporosis without current pathol*05/25/2019 Personal history of healed oste (more content not included)... Normal [facility] Absolute lymphocyte countOrd ered By: Errolnavneet Michel on 08-31-2023 Lymphocytes Auto (Unsp spec) [#/Vol] 2.49 10*3/uL 0.83-4.51 [facility] Automated lymphocyte count a s percentage of total leukocytesOrdered By: Errol Jarenangus on 08-31-2023 Lymphocytes/100 WBC Auto (Unsp spec) 22.9 % 19-41 [facility] Basophil percentageOrdered B y: Errol Eastmanangus on 08-31-2023 Basophils/100 WBC (Bld) 0.6 % 0-1 [facility] Bilirubin [Mass/Vol] 0.40 mg/dL 0.20-1.00 [facility] Comment on above: For patients on eltr ombopag therapy, use of Dimension [place] TBIL is not recommended. Chloride [Moles/Vol] 107 mmol/L 98-107 [facility] Eosinophils/100 WBC (Bld) 3.3 % 0-5 [facility] Glucose [Mass/Vol] 84 mg/dL 74-106 [facility] Hemoglobin (Bld) [Mass/Vol] 11.0 g/dL 12.0-15.0 [facility] Monocytes/100 WBC (Bld) 8.7 % 0-10 [facility] Neutrophils (Bld) [#/Vol] 7.0 10*3/uL 2.0-7.7 [facility] Neutrophils/100 WBC (Bld) 64.3 % 47-70 [facility] Potassium [Moles/Vol] 3.3 mmol/L 3.5-5.1 [facility] Protein [Mass/Vol] 6.9 g/dL 6.4-8.2 [facility] Sodium [Moles/Vol] 138 mmol/L 136-145 [facility] WBC (Bld) [#/Vol] 10.9 10*3/uL 4.4-11.0 [facility] Determination of erythrocyte mean corpuscular volume (MCV)Ordered By: Errol Michel on 08-31-2023 MCV (RBC) [Entitic vol] 87.3 fL 81-99 [facility] Erythrocyte distribution wid th ratioOrdered By: Errol Michel on 08-31-2023 Erythrocyte distribution width (RBC) [Ratio] 15.3 % 11.6-14.6 [facility] Erythrocyte distribution wid th standard deviationOrdered By: Errol Michel on 08-31-2023 Erythrocyte distribution width (RBC) [Entitic vol] 48.7 fL 35.1-43.9 [facility] Hematocrit Auto (Bld) [Volum e fraction]Ordered By: Errol Michel on 08-31-2023 Hematocrit (Bld) [Volume fraction] 35.0 % 37-47 [facility] Immature granulocytes/100 WB C Auto (Bld)Ordered By: Errol Michel on 08-31-2023 Immature granulocytes/100 WBC (Bld) 0.200 % 0.0-0.9 [facility] Comment on above: IG% - Immature Granu locytes (promyelocytes, myelocytes and metamyelocytes) > 1% indicates that a LEFT SHIFT is Present. Iron measurement (mass/mass) Ordered By: Errol Michel on 08-31-2023 Iron (Unsp spec) [Mass/Mass] 26 ug/dL 50-170 [facility] Laboratory - Chemistry and C hemistry - challengeOrdered By: Errol Michel on 08-31-2023 Albumin/Globulin [Mass ratio] 0.8 {ratio} 0.9-2.4 [facility] ALP [Catalytic activity/Vol] 125 U/L 45-117 [facility] ALT [Catalytic activity/Vol] 245 U/L 13-56 [facility] CO2 [Moles/Vol] 25.0 mmol/L 21.0-32.0 [facility] Ferritin [Mass/Vol] 45 ng/mL 8-252 [facility] Globulin (S) [Mass/Vol] 3.9 g/dL 2.2-4.2 [facility] Urea nitrogen/Creatinine [Mass ratio] 19.8 mg/mg 10-20 [facility] Laboratory - Hematology and Cell countsOrdered By: Errol Michel on 08-31-2023 MCH (RBC) [Entitic mass] 27.4 pg 27.0-32.0 [facility] MCHC (RBC) [Mass/Vol] 31.4 g/dL 32-36 [facility] Nucleated RBC/100 WBC (Bld) [Ratio] 0 % 0-5 [facility] Platelet mean volume (Bld) [Entitic vol] 10.2 fL 6.2-12.0 [facility] Platelets (Bld) [#/Vol] 371 10*3/uL 150-450 [facility] No Panel InformationOrdered By: Errol Michel on 08-31-2023 Estimated GFR (MDRD) Amer 52 mL/min >60 [facility] Comment on above: GFR Calc Estimated GFR (MDRD) Non-Af Amer 43 mL/min >60 [facility] Comment on above: Non- GFR Calc Vitamin D 25-Hydroxy 70.5 ng/mL [facility] Comment on above: Vitamin D 25(OH) Sta tus Range Deficiency <20 ng/mL (50nmol/L) Insufficiency 20 - 30 ng/mL (50 - 75 nmol/L) Sufficiency 30 - 100 ng/mL (75 - 250 nmol/L) Toxicity >100 ng/mL (>250 nmol/L) RBC Auto (Bld) [#/Vol]Ordere d By: Errol Michel on 08-31-2023 RBC (Bld) [#/Vol] 4.01 10*6/uL 4.2-5.4 [facility] Serum or plasma calcium keli urement (mass/volume)Ordered By: Errol Michel on 08-31-2023 Calcium [Mass/Vol] 8.0 mg/dL 8.5-10.1 [facility] Serum or plasma creatinine m easurement (mass/volume)Ordered By: Errol Michel on 08-31-2023 Creatinine [Mass/Vol] 1.31 mg/dL 0.55-1.02 [facility] Comment on above: The validity of the calculated GFR & GFRAA in patients over 70 years has not been determined. Clinical correlation is essential. Serum or plasma urea nitroge n measurement (mass/volume)Ordered By: Errol Michel on 08-31-2023 Urea nitrogen [Mass/Vol] 26 mg/dL 7-18 [facility] Thin prep Papanicolaou smear with manual screeningOrdered By: Errol Michel on 08-31-2023 Thin prep Papanicolaou smear with manual screening 3.0 g/dL 3.2-5.0 [facility] Thin prep Papanicolaou smear with manual screening 225 U/L 15-37 [facility] Thin prep Papanicolaou smear with manual screening 6 5-15 [facility] Whole blood hemoglobin A1c/t otal hemoglobin ratio (mass fraction)Ordered By: Errol Michel on 08-31-2023 HbA1c (Bld) [Mass fraction] 5.6 % 3.8-5.6 [facility] Comment on above: Normal < 5.7 % Predi abetic 5.7 - 6.4 % Diabetic >or= 6.5 % Please note range changes. Absolute lymphocyte countOrd ered By: Errol Michel on 07-13-2023 Lymphocytes Auto (Unsp spec) [#/Vol] 2.34 10*3/uL 0.83-4.51 [facility] Automated lymphocyte count a s percentage of total leukocytesOrdered By: Errol Eastmanangus on 07-13-2023 Lymphocytes/100 WBC Auto (Unsp spec) 16.3 % 19-41 [facility] Basophil percentageOrdered B y: Errol Michel on 07-13-2023 Basophils/100 WBC (Bld) 0.4 % 0-1 [facility] Bilirubin [Mass/Vol] 0.20 mg/dL 0.20-1.00 [facility] Comment on above: For patients on eltr ombopag therapy, use of Dimension [place] TBIL is not recommended. Chloride [Moles/Vol] 106 mmol/L 98-107 [facility] Cholesterol [Mass/Vol] 81 mg/dL <200 [facility] Comment on above: <200 mg/dL Desirable 200-240 mg/dL Borderline >240 mg/dL High Risk Eosinophils/100 WBC (Bld) 1.3 % 0-5 [facility] Glucose [Mass/Vol] 103 mg/dL 74-106 [facility] Comment on above: Fasting Glucose resu lt from 100 to 125 mg/dL suggests IMPAIRED HOMEOSTASIS per A.D.A. criteria. Hemoglobin (Bld) [Mass/Vol] 10.3 g/dL 12.0-15.0 [facility] Monocytes/100 WBC (Bld) 9.9 % 0-10 [facility] Neutrophils (Bld) [#/Vol] 10.3 10*3/uL 2.0-7.7 [facility] Neutrophils/100 WBC (Bld) 71.7 % 47-70 [facility] Potassium [Moles/Vol] 4.0 mmol/L 3.5-5.1 [facility] Protein [Mass/Vol] 6.5 g/dL 6.4-8.2 [facility] Sodium [Moles/Vol] 138 mmol/L 136-145 [facility] Triglyceride [Mass/Vol] 114 mg/dL <199 [facility] Comment on above: The drugs N-Acetylcy steine and Metamizole may falsely depress this assay.Serum Triglycerides Reference Interval Normal <150 mg/dL Borderline high 150 - 199 mg/dL High 200 - 499 mg/dL Very High > or = 500 mg/dL WBC (Bld) [#/Vol] 14.3 10*3/uL 4.4-11.0 [facility] Determination of erythrocyte mean corpuscular volume (MCV)Ordered By: Errol Michel on 07-13-2023 MCV (RBC) [Entitic vol] 90.2 fL 81-99 [facility] Erythrocyte distribution wid th ratioOrdered By: Errol Michel on 07-13-2023 Erythrocyte distribution width (RBC) [Ratio] 15.8 % 11.6-14.6 [facility] Erythrocyte distribution wid th standard deviationOrdered By: Errol Michel on 07-13-2023 Erythrocyte distribution width (RBC) [Entitic vol] 51.8 fL 35.1-43.9 [facility] Hematocrit Auto (Bld) [Volum e fraction]Ordered By: Errol Michel on 07-13-2023 Hematocrit (Bld) [Volume fraction] 33.1 % 37-47 [facility] Immature granulocytes/100 WB C Auto (Bld)Ordered By: Errol Michel on 07-13-2023 Immature granulocytes/100 WBC (Bld) 0.400 % 0.0-0.9 [facility] Comment on above: IG% - Immature Granu locytes (promyelocytes, myelocytes and metamyelocytes) > 1% indicates that a LEFT SHIFT is Present. Laboratory - Chemistry and C hemistry - challengeOrdered By: Errol Michel on 07-13-2023 Albumin/Globulin [Mass ratio] 0.7 {ratio} 0.9-2.4 [facility] ALP [Catalytic activity/Vol] 66 U/L 45-117 [facility] ALT [Catalytic activity/Vol] 15 U/L 13-56 [facility] Cholesterol in HDL [Mass/Vol] 30 mg/dL >40 [facility] Comment on above: The drugs N-Acetylcy steine and Metamizole may falsely depress this assay. Reference Range HDL <40 mg/dL Low HDL Cholesterol HDL >or= 60 mg/dL High HDL Cholesterol Cholesterol in LDL [Mass/Vol] 28 mg/dL 0-130 [facility] CO2 [Moles/Vol] 26.0 mmol/L 21.0-32.0 [facility] Globulin (S) [Mass/Vol] 3.9 g/dL 2.2-4.2 [facility] Urea nitrogen/Creatinine [Mass ratio] 30.7 mg/mg 10-20 [facility] Laboratory - Hematology and Cell countsOrdered By: Errol Michel on 07-13-2023 MCH (RBC) [Entitic mass] 28.1 pg 27.0-32.0 [facility] MCHC (RBC) [Mass/Vol] 31.1 g/dL 32-36 [facility] Nucleated RBC/100 WBC (Bld) [Ratio] 0 % 0-5 [facility] Platelet mean volume (Bld) [Entitic vol] 10.0 fL 6.2-12.0 [facility] Platelets (Bld) [#/Vol] 339 10*3/uL 150-450 [facility] No Panel InformationOrdered By: Errol Michel on 07-13-2023 Estimated GFR (MDRD) Amer 48 mL/min >60 [facility] Comment on above: GFR Calc Estimated GFR (MDRD) Non-Af Amer 40 mL/min >60 [facility] Comment on above: Non- GFR Calc Free Triiodothyronine (T3) pg/dL 0.9 pg/mL 2.18-3.98 [facility] VLDL Cholesterol 23 mg/dL 5-40 [facility] RBC Auto (Bld) [#/Vol]Ordere d By: Errol Michel on 07-13-2023 RBC (Bld) [#/Vol] 3.67 10*6/uL 4.2-5.4 [facility] Serum or plasma calcium keli urement (mass/volume)Ordered By: Errol Michel on 07-13-2023 Calcium [Mass/Vol] 8.2 mg/dL 8.5-10.1 [facility] Serum or plasma creatinine m easurement (mass/volume)Ordered By: Errol Michel on 07-13-2023 Creatinine [Mass/Vol] 1.40 mg/dL 0.55-1.02 [facility] Comment on above: The validity of the calculated GFR & GFRAA in patients over 70 years has not been determined. Clinical correlation is essential. Serum or plasma thyroid stim ulating hormone (TSH) measurement (units/volume)Ordered By: Errol Michel on 07-13-2023 TSH Qn 1.48 uIU/mL 0.358-3.74 [facility] Serum or plasma urea nitroge n measurement (mass/volume)Ordered By: Errol Michel on 07-13-2023 Urea nitrogen [Mass/Vol] 43 mg/dL 7-18 [facility] Thin prep Papanicolaou smear with manual screeningOrdered By: Errol Michel on 07-13-2023 Thin prep Papanicolaou smear with manual screening 2.6 g/dL 3.2-5.0 [facility] Thin prep Papanicolaou smear with manual screening 18 U/L 15-37 [facility] Thin prep Papanicolaou smear with manual screening 6 5-15 [facility] Thin prep Papanicolaou smear with manual screening 0.71 ng/dL 0.76-1.46 [facility] Absolute lymphocyte countOrd ered By: Cyn French on 06-01-2023 Lymphocytes Auto (Unsp spec) [#/Vol] 2.70 10*3/uL 0.83-4.51 [facility] Automated lymphocyte count a s percentage of total leukocytesOrdered By: Cyn French on 06-01-2023 Lymphocytes/100 WBC Auto (Unsp spec) 25.3 % 19-41 [facility] Basophil percentageOrdered B y: Cyn French on 06-01-2023 Basophils/100 WBC (Bld) 0.4 % 0-1 [facility] Bilirubin [Mass/Vol] 0.20 mg/dL 0.20-1.00 [facility] Comment on above: For patients on eltr ombopag therapy, use of Dimension [place] TBIL is not recommended. Chloride [Moles/Vol] 102 mmol/L 98-107 [facility] Eosinophils/100 WBC (Bld) 1.4 % 0-5 [facility] Glucose [Mass/Vol] 81 mg/dL 74-106 [facility] Hemoglobin (Bld) [Mass/Vol] 11.1 g/dL 12.0-15.0 [facility] Monocytes/100 WBC (Bld) 7.7 % 0-10 [facility] Neutrophils (Bld) [#/Vol] 6.9 10*3/uL 2.0-7.7 [facility] Neutrophils/100 WBC (Bld) 64.8 % 47-70 [facility] Potassium [Moles/Vol] 3.6 mmol/L 3.5-5.1 [facility] Protein [Mass/Vol] 7.5 g/dL 6.4-8.2 [facility] Sodium [Moles/Vol] 135 mmol/L 136-145 [facility] WBC (Bld) [#/Vol] 10.7 10*3/uL 4.4-11.0 [facility] Determination of erythrocyte mean corpuscular volume (MCV)Ordered By: Cyn French on 06-01-2023 MCV (RBC) [Entitic vol] 88.5 fL 81-99 [facility] Erythrocyte distribution wid th ratioOrdered By: Cyn French on 06-01-2023 Erythrocyte distribution width (RBC) [Ratio] 16.2 % 11.6-14.6 [facility] Erythrocyte distribution wid th standard deviationOrdered By: Cyn French on 06-01-2023 Erythrocyte distribution width (RBC) [Entitic vol] 51.8 fL 35.1-43.9 [facility] Hematocrit Auto (Bld) [Volum e fraction]Ordered By: Cyn French on 06-01-2023 Hematocrit (Bld) [Volume fraction] 35.5 % 37-47 [facility] Immature granulocytes/100 WB C Auto (Bld)Ordered By: Cyn French on 06-01-2023 Immature granulocytes/100 WBC (Bld) 0.400 % 0.0-0.9 [facility] Comment on above: IG% - Immature Granu locytes (promyelocytes, myelocytes and metamyelocytes) > 1% indicates that a LEFT SHIFT is Present. Laboratory - Chemistry and C hemistry - challengeOrdered By: Cyn French on 06-01-2023 Albumin/Globulin [Mass ratio] 0.9 {ratio} 0.9-2.4 [facility] ALP [Catalytic activity/Vol] 98 U/L 45-117 [facility] ALT [Catalytic activity/Vol] 19 U/L 13-56 [facility] CO2 [Moles/Vol] 29.0 mmol/L 21.0-32.0 [facility] Globulin (S) [Mass/Vol] 4.0 g/dL 2.2-4.2 [facility] Urea nitrogen/Creatinine [Mass ratio] 21.6 mg/mg 10-20 [facility] Laboratory - Hematology and Cell countsOrdered By: Cyn French on 06-01-2023 MCH (RBC) [Entitic mass] 27.7 pg 27.0-32.0 [facility] MCHC (RBC) [Mass/Vol] 31.3 g/dL 32-36 [facility] Nucleated RBC/100 WBC (Bld) [Ratio] 0 % 0-5 [facility] Platelets (Bld) [#/Vol] 420 10*3/uL 150-450 [facility] No Panel InformationOrdered By: Cyn French on 06-01-2023 Estimated GFR (MDRD) Amer 60 mL/min >60 [facility] Comment on above: GFR Calc Estimated GFR (MDRD) Non-Af Amer 49 mL/min >60 [facility] Comment on above: Non- GFR Calc Platelet mean volume Juan-Ec ker (Bld) [Entitic vol]Ordered By: Cyn French on 06-01-2023 Platelet mean volume (Bld) [Entitic vol] 9.7 fL 6.2-12.0 [facility] RBC Auto (Bld) [#/Vol]Ordere d By: Cyn French on 06-01-2023 RBC (Bld) [#/Vol] 4.01 10*6/uL 4.2-5.4 [facility] Serum or plasma calcium keli urement (mass/volume)Ordered By: Cyn French on 06-01-2023 Calcium [Mass/Vol] 9.1 mg/dL 8.5-10.1 [facility] Serum or plasma creatinine m easurement (mass/volume)Ordered By: Cyn French on 06-01-2023 Creatinine [Mass/Vol] 1.16 mg/dL 0.55-1.02 [facility] Comment on above: The validity of the calculated GFR & GFRAA in patients over 70 years has not been determined. Clinical correlation is essential. Serum or plasma urea nitroge n measurement (mass/volume)Ordered By: Cyn French on 06-01-2023 Urea nitrogen [Mass/Vol] 25 mg/dL 7-18 [facility] Thin prep Papanicolaou smear with manual screeningOrdered By: Cyn French on 06-01-2023 Thin prep Papanicolaou smear with manual screening 3.5 g/dL 3.2-5.0 [facility] Thin prep Papanicolaou smear with manual screening 8 U/L 15-37 [facility] Thin prep Papanicolaou smear with manual screening 4 5-15 [facility] Absolute lymphocyte countOrd ered By: Errol Michel on 05-21-2023 Lymphocytes Auto (Unsp spec) [#/Vol] 3.22 10*3/uL 0.83-4.51 [facility] Automated lymphocyte count a s percentage of total leukocytesOrdered By: Errol Michel on 05-21-2023 Lymphocytes/100 WBC Auto (Unsp spec) 31.3 % 19-41 [facility] Basophil percentageOrdered B y: Errol Michel on 05-21-2023 Basophils/100 WBC (Bld) 0.6 % 0-1 [facility] Bilirubin [Mass/Vol] 0.20 mg/dL 0.20-1.00 [facility] Comment on above: For patients on eltr ombopag therapy, use of Dimension [place] TBIL is not recommended. Chloride [Moles/Vol] 104 mmol/L 98-107 [facility] Eosinophils/100 WBC (Bld) 2.6 % 0-5 [facility] Glucose [Mass/Vol] 77 mg/dL 74-106 [facility] Hemoglobin (Bld) [Mass/Vol] 11.1 g/dL 12.0-15.0 [facility] Monocytes/100 WBC (Bld) 9.1 % 0-10 [facility] Neutrophils (Bld) [#/Vol] 5.8 10*3/uL 2.0-7.7 [facility] Neutrophils/100 WBC (Bld) 56.2 % 47-70 [facility] Potassium [Moles/Vol] 4.2 mmol/L 3.5-5.1 [facility] Protein [Mass/Vol] 7.2 g/dL 6.4-8.2 [facility] Sodium [Moles/Vol] 140 mmol/L 136-145 [facility] WBC (Bld) [#/Vol] 10.3 10*3/uL 4.4-11.0 [facility] Determination of erythrocyte mean corpuscular volume (MCV)Ordered By: Errol Michel on 05-21-2023 MCV (RBC) [Entitic vol] 90.6 fL 81-99 [facility] Erythrocyte distribution wid th ratioOrdered By: Errol Michel on 05-21-2023 Erythrocyte distribution width (RBC) [Ratio] 17.0 % 11.6-14.6 [facility] Erythrocyte distribution wid th standard deviationOrdered By: Errol Michel on 05-21-2023 Erythrocyte distribution width (RBC) [Entitic vol] 56.9 fL 35.1-43.9 [facility] Hematocrit Auto (Bld) [Volum e fraction]Ordered By: Errol Michel on 05-21-2023 Hematocrit (Bld) [Volume fraction] 36.6 % 37-47 [facility] Immature granulocytes/100 WB C Auto (Bld)Ordered By: Errol Michel on 05-21-2023 Immature granulocytes/100 WBC (Bld) 0.200 % 0.0-0.9 [facility] Comment on above: IG% - Immature Granu locytes (promyelocytes, myelocytes and metamyelocytes) > 1% indicates that a LEFT SHIFT is Present. Laboratory - Chemistry and C hemistry - challengeOrdered By: Errol Michel on 05-21-2023 Albumin/Globulin [Mass ratio] 0.9 {ratio} 0.9-2.4 [facility] ALP [Catalytic activity/Vol] 87 U/L 45-117 [facility] ALT [Catalytic activity/Vol] 33 U/L 13-56 [facility] CO2 [Moles/Vol] 31.0 mmol/L 21.0-32.0 [facility] Globulin (S) [Mass/Vol] 3.8 g/dL 2.2-4.2 [facility] Urea nitrogen/Creatinine [Mass ratio] 27.5 mg/mg 10-20 [facility] Laboratory - Hematology and Cell countsOrdered By: Errol Michel on 05-21-2023 MCH (RBC) [Entitic mass] 27.5 pg 27.0-32.0 [facility] MCHC (RBC) [Mass/Vol] 30.3 g/dL 32-36 [facility] Nucleated RBC/100 WBC (Bld) [Ratio] 0 % 0-5 [facility] Platelets (Bld) [#/Vol] 400 10*3/uL 150-450 [facility] No Panel InformationOrdered By: Errol Michel on 05-21-2023 Estimated GFR (MDRD) Amer 64 mL/min >60 [facility] Comment on above: GFR Calc Estimated GFR (MDRD) Non-Af Amer 53 mL/min >60 [facility] Comment on above: Non- GFR Calc Vitamin D 25-Hydroxy 14.3 ng/mL [facility] Comment on above: Vitamin D 25(OH) Sta tus Range Deficiency <20 ng/mL (50nmol/L) Insufficiency 20 - 30 ng/mL (50 - 75 nmol/L) Sufficiency 30 - 100 ng/mL (75 - 250 nmol/L) Toxicity >100 ng/mL (>250 nmol/L) Platelet mean volume Juan-Ec ker (Bld) [Entitic vol]Ordered By: Errol Michel on 05-21-2023 Platelet mean volume (Bld) [Entitic vol] 10.3 fL 6.2-12.0 [facility] RBC Auto (Bld) [#/Vol]Ordere d By: Errol Michel on 05-21-2023 RBC (Bld) [#/Vol] 4.04 10*6/uL 4.2-5.4 [facility] Serum or plasma calcium keli urement (mass/volume)Ordered By: Errol Michel on 05-21-2023 Calcium [Mass/Vol] 9.4 mg/dL 8.5-10.1 [facility] Serum or plasma creatinine m easurement (mass/volume)Ordered By: Errol Michel on 05-21-2023 Creatinine [Mass/Vol] 1.09 mg/dL 0.55-1.02 [facility] Comment on above: The validity of the calculated GFR & GFRAA in patients over 70 years has not been determined. Clinical correlation is essential. Serum or plasma urea nitroge n measurement (mass/volume)Ordered By: Errol Michel on 05-21-2023 Urea nitrogen [Mass/Vol] 30 mg/dL 7-18 [facility] Thin prep Papanicolaou smear with manual screeningOrdered By: Errol Michel on 05-21-2023 Thin prep Papanicolaou smear with manual screening 3.4 g/dL 3.2-5.0 [facility] Thin prep Papanicolaou smear with manual screening 23 U/L 15-37 [facility] Thin prep Papanicolaou smear with manual screening 5 5-15 [facility] Basophil percentageOrdered B y: David Blackwell on 05-06-2023 WBC (Bld) [#/Vol] 16.7 10*3/uL 4.4-11.0 [facility] Blood erythrocytes count (nu mber/volume)Ordered By: David Blackwell on 05-06-2023 RBC (Bld) [#/Vol] 3.34 10*6/uL 4.2-5.4 [facility] Blood hemoglobin measurement (mass/volume)Ordered By: David Blackwell on 05-06-2023 Hemoglobin (Bld) [Mass/Vol] 9.1 g/dL 12.0-15.0 [facility] Blood platelet mean volumeOr dered By: David Blackwell on 05-06-2023 Platelet mean volume (Bld) [Entitic vol] 9.5 fL 6.2-12.0 [facility] Determination of erythrocyte mean corpuscular volume (MCV)Ordered By: David Blackwell on 05-06-2023 MCV (RBC) [Entitic vol] 82.6 fL 81-99 [facility] Hematocrit Auto (Bld) [Volum e fraction]Ordered By: David Blackwell on 05-06-2023 Hematocrit (Bld) [Volume fraction] 27.6 % 37-47 [facility] Laboratory - Hematology and Cell countsOrdered By: David Blackwell on 05-06-2023 Erythrocyte distribution width (RBC) [Entitic vol] 52.2 fL 35.1-43.9 [facility] Erythrocyte distribution width (RBC) [Ratio] 17.5 % 11.6-14.6 [facility] MCH (RBC) [Entitic mass] 27.2 pg 27.0-32.0 [facility] MCHC Auto (RBC) [Mass/Vol]Or dered By: David Blackwell on 05-06-2023 MCHC (RBC) [Mass/Vol] 33.0 g/dL 32-36 [facility] Platelets bldOrdered By: Zoie Blackwell on 05-06-2023 Platelets (Bld) [#/Vol] 467 10*3/uL 150-450 [facility] Basophil percentageOrdered B y: David Blackwell on 05-05-2023 Chloride [Moles/Vol] 116 mmol/L 98-107 [facility] Glucose [Mass/Vol] 134 mg/dL 74-106 [facility] Comment on above: Fasting Glucose resu lt greater than or equal to 126 mg/dL suggests DIABETES MELLITUS per A.D.A. criteria. Potassium [Moles/Vol] 3.6 mmol/L 3.5-5.1 [facility] Sodium [Moles/Vol] 144 mmol/L 136-145 [facility] Laboratory - Chemistry and C hemistry - challengeOrdered By: David Blackwell on 05-05-2023 CO2 [Moles/Vol] 21.0 mmol/L 21.0-32.0 [facility] Urea nitrogen/Creatinine [Mass ratio] 20.2 mg/mg 10-20 [facility] Lower GI hemoglobin IA Ql (S tl)Ordered By: David Blackwell on 05-05-2023 Stool Occult Blood (ELFEGO) Positive [facility] No Panel InformationOrdered By: David Blackwell on 05-05-2023 Estimated Creatinine Clearance Calc 52.38 ml/min [facility] Estimated GFR (MDRD) Amer 108 mL/min >60 [facility] Comment on above: GFR Calc Estimated GFR (MDRD) Non-Af Amer 89 mL/min >60 [facility] Comment on above: Non- GFR Calc No Panel InformationOrdered By: Uday Paniagua on 05-05-2023 Thyroid Stimulating Hormone (TSH) 2.15 uIU/mL 0.358-3.74 [facility] Serum or plasma calcium keli urement (mass/volume)Ordered By: David Blackwell on 05-05-2023 Calcium [Mass/Vol] 7.6 mg/dL 8.5-10.1 [facility] Serum or plasma creatinine m easurement (mass/volume)Ordered By: David Blackwell on 05-05-2023 Creatinine [Mass/Vol] 0.69 mg/dL 0.55-1.02 [facility] Comment on above: The validity of the calculated GFR & GFRAA in patients over 70 years has not been determined. Clinical correlation is essential. Serum or plasma urea nitroge n measurement (mass/volume)Ordered By: David Blackwell on 05-05-2023 Urea nitrogen [Mass/Vol] 14 mg/dL 7-18 [facility] Thin prep Papanicolaou smear with manual screeningOrdered By: David Blackwell on 05-05-2023 Thin prep Papanicolaou smear with manual screening 7 5-15 [facility] Absolute lymphocyte countOrd ered By: Cherelle Almendarez on 05-04-2023 Lymphocytes Auto (Unsp spec) [#/Vol] 0.96 10*3/uL 0.83-4.51 [facility] Basophil percentageOrdered B y: Cherelle Almendarez on 05-04-2023 Basophil percentage 1.5 mg/dL 2.5-4.9 [facility] Basophils/100 WBC (Bld) 0.2 % 0-1 [facility] Bilirubin [Mass/Vol] 0.30 mg/dL 0.20-1.00 [facility] Comment on above: For patients on eltr ombopag therapy, use of Dimension [place] TBIL is not recommended. Eosinophils/100 WBC (Bld) 0.0 % 0-5 [facility] Neutrophils (Bld) [#/Vol] 21.7 10*3/uL 2.0-7.7 [facility] Neutrophils/100 WBC (Bld) 91.0 % 47-70 [facility] Protein [Mass/Vol] 5.7 g/dL 6.4-8.2 [facility] Blood lymphocytes/100 leukoc ytesOrdered By: Cherelle Almendarez on 05-04-2023 Lymphocytes/100 WBC (Bld) 4.0 % 19-41 [facility] Blood monocytes/100 leukocyt esOrdered By: Cherelle Almendarez on 05-04-2023 Monocytes/100 WBC (Bld) 1.8 % 0-10 [facility] Blood platelet adequacy dete ction by light microscopyOrdered By: Cherelle Almendarez on 05-04-2023 Platelets LM Ql (Bld) MKD INC ADEQ [facility] Hypochromatic red blood cell detectionOrdered By: Cherelle Almendarez on 05-04-2023 Hypochromia Ql (Bld) 3+ [facility] Iron measurement (mass/mass) Ordered By: David Blackwell on 05-04-2023 Iron (Unsp spec) [Mass/Mass] 67 ug/dL 50-170 [facility] Laboratory - Chemistry and C hemistry - challengeOrdered By: Cherelle Almendarez on 05-04-2023 ALP [Catalytic activity/Vol] 62 U/L 45-117 [facility] ALT [Catalytic activity/Vol] 10 U/L 13-56 [facility] Globulin (S) [Mass/Vol] 3.7 g/dL 2.2-4.2 [facility] Magnesium [Mass/Vol] 1.9 mg/dL 1.6-2.6 [facility] Laboratory - Hematology and Cell countsOrdered By: Cherelle Almendarez on 05-04-2023 Anisocytosis Ql (Bld) 2+ [facility] Immature granulocytes/100 WBC (Bld) 3.000 % 0.0-0.9 [facility] Comment on above: IG% - Immature Granu locytes (promyelocytes, myelocytes and metamyelocytes) > 1% indicates that a LEFT SHIFT is Present. Nucleated RBC/100 WBC (Bld) [Ratio] 0 % 0-5 [facility] Lower GI hemoglobin IA Ql (S tl)Ordered By: David Blackwell on 05-04-2023 Stool Occult Blood (ELFEGO) Positive [facility] No Panel InformationOrdered By: David Blackwell on 05-04-2023 Total Iron Binding Capacity 281 ug/dL 250-450 [facility] Review by pathologistOrdered By: Cherelle Almendarez on 05-04-2023 Pathologist review Sharif (Unsp spec) [Interp] Reviewed [facility] Comment on above: Previous reported re sult: Priscila ernst Edited by: RGOEVELIA on 05/04/23:1215Neutrophilic leukocytosis.Severe Normocytic anemia.Thrombocytosis.Clinical correlation necessary.Prabhjot Dotson M.D. 05/04/23 AMENDED REPORT 05/04/23 1215 PATH REV previously reported as: Priscila ernst Serum or plasma albumin keli urement (mass/volume)Ordered By: Cherelle Almednarez on 05-04-2023 Albumin [Mass/Vol] 2.0 g/dL 3.2-5.0 [facility] Serum or plasma albumin/glob ulin mass ratioOrdered By: Cherelle Almendarez on 05-04-2023 Albumin/Globulin [Mass ratio] 0.5 {ratio} 0.9-2.4 [facility] Serum or plasma ferritin kecia surement (mass/volume)Ordered By: David Blackwell on 05-04-2023 Ferritin [Mass/Vol] 220 ng/mL 8-252 [facility] Serum or plasma iron saturat ion measurement (mass fraction)Ordered By: David Blackwell on 05-04-2023 Iron saturation [Mass fraction] 23.8 % 15.0-55.0 [facility] Serum or plasma trough vanco mycin levelOrdered By: Cherelle Almendarez on 05-04-2023 Vancomycin trough [Mass/Vol] 19.0 ug/mL 5.0-15.0 [facility] Comment on above: VANCOMYCIN STANDARED DRUG THERAPY TROUGH LEVEL: 5.0 - 15.0 mg/L VANCOMYCIN HIGH INTENSITY THERAPY TROUGH LEVEL: 15.0 - 20.0 mg/L High Intensity therapy recommended for serious lifethreatening infections include:- Zekarnwioq-Emmyvaeceaze-Tilxhtqyt (Ventilator/Healtcare Associated)-Sepsis PLEASE CONTACT PHARMACY SERVICES (#[id number]) FOR INTERPRETATIONOF RESULTS. Thin prep Papanicolaou smear with manual screeningOrdered By: Cherelle Almendarez on 05-04-2023 Thin prep Papanicolaou smear with manual screening 17 U/L 15-37 [facility] Absolute lymphocyte countOrd ered By: Néstor Kirkpatrick on 05-03-2023 Lymphocytes Auto (Unsp spec) [#/Vol] 3.31 10*3/uL 0.83-4.51 [facility] Assessment of wrist artery p atency prior to arterial punctureOrdered By: Néstor Kirkpatrick on 05-03-2023 Arterial patency Wrist artery --pre arterial puncture Positive [facility] Base excessOrdered By: Néstor Kirkpatrick on 05-03-2023 Base excess Calc (BldV) [Moles/Vol] -5 mmol/L -2-2 [facility] Basophil percentageOrdered B y: Néstor Kirkpatrick on 05-03-2023 Lactate [Moles/Vol] 1.0 mmol/L 0.4-2.0 [facility] Basophil percentage 20.8 mmol/L 22-26 [facility] Basophils/100 WBC (Bld) 93 % 95-99 [facility] Basophil percentage 0 SEEN /hpf 0-5 [facility] Basophils/100 WBC (Bld) 0.4 % 0-1 [facility] Bilirubin [Mass/Vol] 0.40 mg/dL 0.20-1.00 [facility] Comment on above: For patients on eltr ombopag therapy, use of Dimension [place] TBIL is not recommended. Chloride [Moles/Vol] 104 mmol/L 98-107 [facility] Eosinophils/100 WBC (Bld) 0.1 % 0-5 [facility] Glucose [Mass/Vol] 180 mg/dL 74-106 [facility] Comment on above: Fasting Glucose resu lt greater than or equal to 126 mg/dL suggests DIABETES MELLITUS per A.D.A. criteria. Lactate [Moles/Vol] 4.8 mmol/L 0.4-2.0 [facility] Comment on above: Critical Result(s) C alled at: 09:36:54 05/03/2023 by: Maximo Juan. TO A Self RN (ER). Results read back by same. Neutrophils (Bld) [#/Vol] 24.1 10*3/uL 2.0-7.7 [facility] Neutrophils/100 WBC (Bld) 81.1 % 47-70 [facility] Potassium [Moles/Vol] 4.4 mmol/L 3.5-5.1 [facility] Protein [Mass/Vol] 7.2 g/dL 6.4-8.2 [facility] Sodium [Moles/Vol] 138 mmol/L 136-145 [facility] WBC (Bld) [#/Vol] 29.7 10*3/uL 4.4-11.0 [facility] Bilirubin Test strip Ql (U)O rdered By: Néstor Kirkpatrick on 05-03-2023 Bilirubin Ql (U) 1 mg/dL Negative [facility] Comment on above: COLOR OF URINE MAY A FFECT DIPSTICK RESULTS. Blood erythrocytes count (nu mber/volume)Ordered By: Néstor Kirkpatrick on 05-03-2023 RBC (Bld) [#/Vol] 3.41 10*6/uL 4.2-5.4 [facility] Blood hemoglobin measurement (mass/volume)Ordered By: Néstor Kirkpatrick on 05-03-2023 Hemoglobin (Bld) [Mass/Vol] 8.6 g/dL 12.0-15.0 [facility] Blood lymphocytes/100 leukoc ytesOrdered By: Néstor Kirkpatrick on 05-03-2023 Lymphocytes/100 WBC (Bld) 11.1 % 19-41 [facility] Blood manual differential co mment interpretation (narrative result)Ordered By: Néstor Kirkpatrick on 05-03-2023 Manual differential comment Sharif (Bld) [Interp] SCANNED [facility] Comment on above: NEUTROPHILIA Blood monocytes/100 leukocyt esOrdered By: Néstor Kirkpatrick on 05-03-2023 Monocytes/100 WBC (Bld) 4.9 % 0-10 [facility] Blood platelet adequacy dete ction by light microscopyOrdered By: Néstor Kirkpatrick on 05-03-2023 Platelets LM Ql (Bld) [employer] ADEQ [facility] Blood platelet mean volumeOr dered By: Néstor Kirkpatrick on 05-03-2023 Platelet mean volume (Bld) [Entitic vol] 9.6 fL 6.2-12.0 [facility] CO2 (BldA) [Partial pressure ]Ordered By: Néstor Kirkpatrick on 05-03-2023 CO2 (Bld) [Partial pressure] 37.7 mm[Hg] 35-45 [facility] Culture, urineOrdered By: Korey Kirkpatrick on 05-03-2023 Bacteria identified Cx Nom (U) G. vaginalis (Presumptive) [facility] Bacteria identified Cx Nom (U) Aerococcus urinae [facility] Bacteria identified Cx Nom (U) Schaalia canis [facility] Determination of erythrocyte mean corpuscular volume (MCV)Ordered By: Néstor Kirkpatrick on 05-03-2023 MCV (RBC) [Entitic vol] 81.8 fL 81-99 [facility] Gram stain for investigation of transfusion reactionOrdered By: Cherelle Almendarez on 05-03-2023 Microscopic observation Gram stain Nom (Unsp spec) [facility] Microscopic observation Gram stain Nom (Unsp spec) [facility] Hematocrit Auto (Bld) [Volum e fraction]Ordered By: Néstor Kirkpatrick on 05-03-2023 Hematocrit (Bld) [Volume fraction] 27.9 % 37-47 [facility] INR in Blood by Coagulation assayOrdered By: Néstor Kirkpatrick on 05-03-2023 INR Coag (Bld) [Relative time] 1.1 {INR} [facility] Ketones Test strip Ql (U)Ord ered By: Néstor Kirkpatrick on 05-03-2023 Ketones Ql (U) 50 mg/dl Negative [facility] Laboratory - Chemistry and C hemistry - challengeOrdered By: Néstor Kirkpatrick on 05-03-2023 ALP [Catalytic activity/Vol] 87 U/L 45-117 [facility] ALT [Catalytic activity/Vol] 12 U/L 13-56 [facility] CO2 [Moles/Vol] 23.0 mmol/L 21.0-32.0 [facility] Globulin (S) [Mass/Vol] 5.0 g/dL 2.2-4.2 [facility] Lipase [Catalytic activity/Vol] 12 U/L 13-75 [facility] Comment on above: Please note:LIPASE r evised reference range effective 22. New Lipase methodology. Expected to produce lower values than the previous assay method. NEW Reference Range: 13 - 75 U/L Urea nitrogen/Creatinine [Mass ratio] 28.9 mg/mg 10-20 [facility] Laboratory - CoagulationOrde red By: Néstor Kirkpatrick on 05-03-2023 aPTT Coag (Bld) [Time] 30.6 s 24.1-36.2 [facility] PT Coag (PPP) [Time] 14.2 s 11.7-14.9 [facility] Laboratory - Hematology and Cell countsOrdered By: Néstor Kirkpatrick on 05-03-2023 Erythrocyte distribution width (RBC) [Entitic vol] 54.9 fL 35.1-43.9 [facility] Erythrocyte distribution width (RBC) [Ratio] 18.4 % 11.6-14.6 [facility] Immature granulocytes/100 WBC (Bld) 2.400 % 0.0-0.9 [facility] Comment on above: IG% - Immature Granu locytes (promyelocytes, myelocytes and metamyelocytes) > 1% indicates that a LEFT SHIFT is Present. MCH (RBC) [Entitic mass] 25.2 pg 27.0-32.0 [facility] Nucleated RBC/100 WBC (Bld) [Ratio] 0.1 % 0-5 [facility] Laboratory - Microbiology an d Antimicrobial susceptibilityOrdered By: Néstor Kirkpatrick on 05-03-2023 Bacteria identified Cx Nom (Bld) Negative [facility] SARS-CoV-2 (COVID-19) RNA FLEX+probe Ql (Unsp spec) Influenzae A [facility] MCHC Auto (RBC) [Mass/Vol]Or dered By: Néstor Kirkpatrick on 05-03-2023 MCHC (RBC) [Mass/Vol] 30.8 g/dL 32-36 [facility] Microbial respiratory cultur eOrdered By: Cherelle Almendarez on 05-03-2023 Bacteria identified Respiratory culture Nom (Unsp spec) or Staphylococcus aureus isolated. [facility] Bacteria identified Respiratory culture Nom (Unsp spec) or Staphylococcus aureus isolated. [facility] Mucus LM Ql (Urine sed)Order ed By: Néstor Kirkpatrick on 05-03-2023 Mucus Ql (Urine sed) 0 SEEN /hpf [facility] Nitrite Test strip Ql (U)Ord ered By: Néstor Kirkpatrick on 05-03-2023 Nitrite Ql (U) Negative Negative [facility] No Panel InformationOrdered By: Cherelle Almendarez on 05-03-2023 Methicillin-Resist S.aureus DNA PCR Negative Negative [facility] No Panel InformationOrdered By: Néstor Kirkpatrick on 05-03-2023 Troponin I High Sensitivity 20 pg/mL 3.0-54.0 [facility] Comment on above: Please Note: [place] Units and Gender Specific Reference Ranges. For more information see Policy Stat Procedure [place] High Sensitivity Troponin (TNIH) and attachments. Blood Gas Oxygen Percent 2.0 [facility] Blood Gas Sample Site R Brach [facility] Blood Gas Specimen Type ART [facility] Blood Gas Total CO2 22 mmol/L [facility] Blood Gas Vent Mode Not entered [facility] Oxygen Delivery Device Cannula [facility] Estimated Creatinine Clearance Calc 41.99 ml/min [facility] Estimated GFR (MDRD) Amer 50 mL/min >60 [facility] Comment on above: GFR Calc Estimated GFR (MDRD) Non-Af Amer 42 mL/min >60 [facility] Comment on above: Non- GFR Calc Oxygen (BldA) [Partial press ure]Ordered By: Néstor Kirkpatrick on 05-03-2023 Oxygen (Bld) [Partial pressure] 71 mmHG 75-100 [facility] Platelets bldOrdered By: Socorro Kirkpatrick on 05-03-2023 Platelets (Bld) [#/Vol] 754 10*3/uL 150-450 [facility] Comment on above: CRITICAL VALUE VERIF IED. CALLED TO WILLIAM LEWIS05/03/23 0910 Radha Holloway.RESULTS READ BACK BY SAME . Protein Test strip Ql (U)Ord ered By: Néstor Kirkpatrick on 05-03-2023 Protein Ql (U) 15 mg/dl Negative [facility] Review by pathologistOrdered By: Néstor Kirkpatrick on 05-03-2023 Pathologist review Sharif (Unsp spec) [Interp] May [facility] Serum or plasma albumin keli urement (mass/volume)Ordered By: Néstor Kirkpatrick on 05-03-2023 Albumin [Mass/Vol] 2.2 g/dL 3.2-5.0 [facility] Serum or plasma albumin/glob ulin mass ratioOrdered By: Néstor Kirkpatrick on 05-03-2023 Albumin/Globulin [Mass ratio] 0.4 {ratio} 0.9-2.4 [facility] Serum or plasma calcium keli urement (mass/volume)Ordered By: Néstor Kirkpatrick on 05-03-2023 Calcium [Mass/Vol] 8.9 mg/dL 8.5-10.1 [facility] Serum or plasma creatinine m easurement (mass/volume)Ordered By: Néstor Kirkpatrick on 05-03-2023 Creatinine [Mass/Vol] 1.35 mg/dL 0.55-1.02 [facility] Comment on above: The validity of the calculated GFR & GFRAA in patients over 70 years has not been determined. Clinical correlation is essential. Serum or plasma urea nitroge n measurement (mass/volume)Ordered By: Néstor Kirkpatrick on 05-03-2023 Urea nitrogen [Mass/Vol] 39 mg/dL 7-18 [facility] Squamous epithelial cells de tection in urine sediment by light microscopyOrdered By: Néstor Kirkpatrick on 05-03-2023 Epithelial cells.squamous LM Ql (Urine sed) 5-10 SEEN /hpf 5-10 [facility] Thin prep Papanicolaou smear with manual screeningOrdered By: Néstor Kirkpatrick on 05-03-2023 Thin prep Papanicolaou smear with manual screening 20 U/L 15-37 [facility] Thin prep Papanicolaou smear with manual screening 11 5-15 [facility] Urine blood detectionOrdered By: Néstor Kirkpatrick on 05-03-2023 RBC Ql (U) Negative Negative [facility] RBC Ql (U) 0 SEEN /hpf 0-5 [facility] Urine clarityOrdered By: Socorro Kirkpatrick on 05-03-2023 Clarity (U) Clear Clear [facility] Urine color determinationOrd ered By: Néstor Kirkpatrick on 05-03-2023 Color (U) Yellow Yellow [facility] Urine glucose detectionOrder ed By: Néstor Kirkpatrick on 05-03-2023 Glucose Ql (U) Normal mg/dl Normal [facility] Urine leukocyte esterase det ection by dipstickOrdered By: Néstor Kirkpatrick on 05-03-2023 Leukocyte esterase Test strip Ql (U) Negative Negative [facility] Urine pHOrdered By: Néstor kearney on 05-03-2023 pH (U) 6.0 [pH] 5.0 - 8.0 [facility] Urine sediment bacteria coun t by microscopy (number/high power field)Ordered By: Nsétor Kirkpatrick on 05-03-2023 Bacteria LM.HPF (Urine sed) [#/Area] 0 /[HPF] None Seen [facility] Urine specific gravity measu rementOrdered By: Néstor Kirkpatrick on 05-03-2023 Specific gravity (U) [Rel density] 1.020 1.002-1.030 [facility] Urobilinogen Auto test strip Ql (U)Ordered By: Néstor Kirkpatrick on 05-03-2023 Urobilinogen Ql (U) Normal mg/dl Normal [facility] pH measurementOrdered By: Korey Kirkpatrick on 05-03-2023 pH (Unsp spec) 7.35 [pH] 7.35-7.45 [facility] Basophil percentageOrdered B y: David Blackwell on 03-30-2023 Chloride [Moles/Vol] 110 mmol/L 98-107 [facility] Glucose [Mass/Vol] 88 mg/dL 74-106 [facility] Potassium [Moles/Vol] 4.1 mmol/L 3.5-5.1 [facility] Sodium [Moles/Vol] 140 mmol/L 136-145 [facility] WBC (Bld) [#/Vol] 10.4 10*3/uL 4.4-11.0 [facility] Blood erythrocytes count (nu mber/volume)Ordered By: David Blackwell on 03-30-2023 RBC (Bld) [#/Vol] 3.54 10*6/uL 4.2-5.4 [facility] Blood hemoglobin measurement (mass/volume)Ordered By: David Blackwell on 03-30-2023 Hemoglobin (Bld) [Mass/Vol] 9.2 g/dL 12.0-15.0 [facility] Blood platelet mean volumeOr dered By: David Blackwell on 03-30-2023 Platelet mean volume (Bld) [Entitic vol] 9.2 fL 6.2-12.0 [facility] Determination of erythrocyte mean corpuscular volume (MCV)Ordered By: David Blackwell on 03-30-2023 MCV (RBC) [Entitic vol] 83.1 fL 81-99 [facility] Hematocrit Auto (Bld) [Volum e fraction]Ordered By: David Blackwell on 03-30-2023 Hematocrit (Bld) [Volume fraction] 29.4 % 37-47 [facility] Laboratory - Chemistry and C hemistry - challengeOrdered By: David Blackwell on 03-30-2023 CO2 [Moles/Vol] 27.0 mmol/L 21.0-32.0 [facility] Urea nitrogen/Creatinine [Mass ratio] 21.0 mg/mg 10-20 [facility] Laboratory - Hematology and Cell countsOrdered By: David Blackwell on 03-30-2023 Erythrocyte distribution width (RBC) [Entitic vol] 52.8 fL 35.1-43.9 [facility] Erythrocyte distribution width (RBC) [Ratio] 17.3 % 11.6-14.6 [facility] MCH (RBC) [Entitic mass] 26.0 pg 27.0-32.0 [facility] MCHC Auto (RBC) [Mass/Vol]Or dered By: Daivd Blackwell on 03-30-2023 MCHC (RBC) [Mass/Vol] 31.3 g/dL 32-36 [facility] No Panel InformationOrdered By: David Blackwell on 03-30-2023 Estimated Creatinine Clearance Calc 32.95 ml/min [facility] Estimated GFR (MDRD) Amer 58 mL/min >60 [facility] Comment on above: GFR Calc Estimated GFR (MDRD) Non-Af Amer 48 mL/min >60 [facility] Comment on above: Non- GFR Calc Platelets bldOrdered By: Zoie kitty Rishi on 03-30-2023 Platelets (Bld) [#/Vol] 420 10*3/uL 150-450 [facility] Respiratory pathogens detect ion panel by molecular detection methodOrdered By: David Blackwell on 03-30-2023 Respiratory pathogens DNA and RNA panel FLEX+probe (Resp) [facility] Respiratory pathogens DNA and RNA panel FLEX+probe (Resp) [facility] Serum or plasma calcium keli urement (mass/volume)Ordered By: David Blackwell on 03-30-2023 Calcium [Mass/Vol] 8.0 mg/dL 8.5-10.1 [facility] Serum or plasma creatinine m easurement (mass/volume)Ordered By: David Blackwell on 03-30-2023 Creatinine [Mass/Vol] 1.19 mg/dL 0.55-1.02 [facility] Comment on above: The validity of the calculated GFR & GFRAA in patients over 70 years has not been determined. Clinical correlation is essential. Serum or plasma urea nitroge n measurement (mass/volume)Ordered By: David Blackwell on 03-30-2023 Urea nitrogen [Mass/Vol] 25 mg/dL 7-18 [facility] Thin prep Papanicolaou smear with manual screeningOrdered By: David Blackwell on 03-30-2023 Thin prep Papanicolaou smear with manual screening 3 5-15 [facility] Absolute lymphocyte countOrd ered By: Dre Quispe on 03-29-2023 Lymphocytes Auto (Unsp spec) [#/Vol] 2.74 10*3/uL 0.83-4.51 [facility] Assessment of wrist artery p atency prior to arterial punctureOrdered By: Damon Angle on 03-29-2023 Arterial patency Wrist artery --pre arterial puncture N/A [facility] Base excessOrdered By: Damon Angel on 03-29-2023 Base excess Calc (BldV) [Moles/Vol] -2 mmol/L -2-2 [facility] Basophil percentageOrdered B y: Damon Angel on 03-29-2023 Basophil percentage 22.9 mmol/L 22- [facility] Basophils/100 WBC (Bld) 94 % 95-99 [facility] Basophil percentageOrdered B y: Dre Quispe on 03-29-2023 Basophil percentage 0-5 SEEN /hpf 0-[address] [facility] Basophils/100 WBC (Bld) 0.3 % 0-1 [facility] Bilirubin [Mass/Vol] 0.20 mg/dL 0.20-1.00 [facility] Comment on above: For patients on eltr ombopag therapy, use of Dimension [place] TBIL is not recommended. Chloride [Moles/Vol] 109 mmol/L 98-107 [facility] Eosinophils/100 WBC (Bld) 1.2 % 0-5 [facility] Glucose [Mass/Vol] 123 mg/dL 74-106 [facility] Comment on above: Fasting Glucose resu lt from 100 to 125 mg/dL suggests IMPAIRED HOMEOSTASIS per A.D.A. criteria. Lactate [Moles/Vol] 1.7 mmol/L 0.4-2.0 [facility] Neutrophils (Bld) [#/Vol] 12.9 10*3/uL 2.0-7.7 [facility] Neutrophils/100 WBC (Bld) 75.0 % 47-70 [facility] Potassium [Moles/Vol] 3.9 mmol/L 3.5-5.1 [facility] Protein [Mass/Vol] 7.4 g/dL 6.4-8.2 [facility] Sodium [Moles/Vol] 141 mmol/L 136-145 [facility] WBC (Bld) [#/Vol] 17.3 10*3/uL 4.4-11.0 [facility] Bilirubin Test strip Ql (U)O rdered By: Dre Quispe on 03-29-2023 Bilirubin Ql (U) 1 mg/dL Negative [facility] Comment on above: COLOR OF URINE MAY A FFECT DIPSTICK RESULTS. Blood erythrocytes count (nu mber/volume)Ordered By: Dre Quispe on 03-29-2023 RBC (Bld) [#/Vol] 4.14 10*6/uL 4.2-5.4 [facility] Blood hemoglobin measurement (mass/volume)Ordered By: Dre Quispe on 03-29-2023 Hemoglobin (Bld) [Mass/Vol] 10.3 g/dL 12.0-15.0 [facility] Blood lymphocytes/100 leukoc ytesOrdered By: Dre Quispe on 03-29-2023 Lymphocytes/100 WBC (Bld) 15.9 % 19-41 [facility] Blood monocytes/100 leukocyt esOrdered By: Dre Quispe on 03-29-2023 Monocytes/100 WBC (Bld) 7.0 % 0-10 [facility] Blood platelet mean volumeOr dered By: Dre Quispe on 03-29-2023 Platelet mean volume (Bld) [Entitic vol] 9.4 fL 6.2-12.0 [facility] CO2 (BldA) [Partial pressure ]Ordered By: Damon Angel on 03-29-2023 CO2 (Bld) [Partial pressure] 39.3 mm[Hg] 35-45 [facility] Culture, urineOrdered By: Maria M Quispe on 03-29-2023 Bacteria identified Cx Nom (U) Culture exhibits no growth. [facility] Bacteria identified Cx Nom (U) Culture exhibits no growth. [facility] Determination of erythrocyte mean corpuscular volume (MCV)Ordered By: Dre Quispe on 03-29-2023 MCV (RBC) [Entitic vol] 81.4 fL 81-99 [facility] Hematocrit Auto (Bld) [Volum e fraction]Ordered By: Dre Quispe on 03-29-2023 Hematocrit (Bld) [Volume fraction] 33.7 % 37-47 [facility] INR in Blood by Coagulation assayOrdered By: Dre Quispe on 03-29-2023 INR Coag (Bld) [Relative time] 1.2 {INR} [facility] Influenza virus A and B and SARS-CoV-2 (COVID-19) Ag panel - Upper respiratory specimOrdered By: Dre Quispe on 03-29-2023 SARS-CoV-2 (COVID-19) RNA FLEX+probe Ql (Resp) [facility] Ketones Test strip Ql (U)Ord ered By: Dre Quispe on 03-29-2023 Ketones Ql (U) 5 mg/dl Negative [facility] Laboratory - Chemistry and C hemistry - challengeOrdered By: David Blackwell on 03-29-2023 Sodium (U) [Moles/Vol] 23 mmol/L Not Establ. [facility] Laboratory - Chemistry and C hemistry - challengeOrdered By: Dre Quispe on 03-29-2023 ALP [Catalytic activity/Vol] 94 U/L 45-117 [facility] ALT [Catalytic activity/Vol] 11 U/L 13-56 [facility] CO2 [Moles/Vol] 27.0 mmol/L 21.0-32.0 [facility] Globulin (S) [Mass/Vol] 4.5 g/dL 2.2-4.2 [facility] Natriuretic peptide B (Bld) [Mass/Vol] 12.9 pg/mL 0-100 [facility] Urea nitrogen/Creatinine [Mass ratio] 18.4 mg/mg 10-20 [facility] Laboratory - CoagulationOrde red By: Dre Quispe on 03-29-2023 aPTT Coag (Bld) [Time] 29.1 s 24.1-36.2 [facility] PT Coag (PPP) [Time] 15.2 s 11.7-14.9 [facility] Laboratory - Hematology and Cell countsOrdered By: Dre Quispe on 03-29-2023 Erythrocyte distribution width (RBC) [Entitic vol] 51.5 fL 35.1-43.9 [facility] Erythrocyte distribution width (RBC) [Ratio] 17.2 % 11.6-14.6 [facility] Immature granulocytes/100 WBC (Bld) 0.600 % 0.0-0.9 [facility] Comment on above: IG% - Immature Granu locytes (promyelocytes, myelocytes and metamyelocytes) > 1% indicates that a LEFT SHIFT is Present. MCH (RBC) [Entitic mass] 24.9 pg 27.0-32.0 [facility] Nucleated RBC/100 WBC (Bld) [Ratio] 0 % 0-5 [facility] Laboratory - Microbiology an d Antimicrobial susceptibilityOrdered By: Dre Quispe on 03-29-2023 Bacteria identified Cx Nom (Bld) No growth in 5 days. [facility] Bacteria identified Cx Nom (Bld) No growth in 5 days. [facility] MCHC Auto (RBC) [Mass/Vol]Or dered By: Dre Quispe on 03-29-2023 MCHC (RBC) [Mass/Vol] 30.6 g/dL 32-36 [facility] Mucus LM Ql (Urine sed)Order ed By: Dre Quispe on 03-29-2023 Mucus Ql (Urine sed) 0 SEEN /hpf [facility] Nitrite Test strip Ql (U)Ord ered By: Dre Quispe on 03-29-2023 Nitrite Ql (U) Negative Negative [facility] No Panel InformationOrdered By: Damon Angel on 03-29-2023 Blood Gas Oxygen Percent 3.0 [facility] Blood Gas Sample Site L Brach [facility] Blood Gas Specimen Type ART [facility] Blood Gas Total CO2 24 mmol/L [facility] Blood Gas Vent Mode Not entered [facility] Oxygen Delivery Device Not entered [facility] No Panel InformationOrdered By: Dre Quispe on 03-29-2023 Estimated Creatinine Clearance Calc 60.37 ml/min [facility] Estimated GFR (MDRD) Amer 31 mL/min >60 [facility] Comment on above: GFR Calc Estimated GFR (MDRD) Non-Af Amer 26 mL/min >60 [facility] Comment on above: Non- GFR Calc Troponin I High Sensitivity 7 pg/mL 3.0-54.0 [facility] Comment on above: Please Note: [place] Units and Gender Specific Reference Ranges. For more information see Policy Stat Procedure [place] High Sensitivity Troponin (TNIH) and attachments. Oxygen (BldA) [Partial press ure]Ordered By: Damon Angel on 03-29-2023 Oxygen (Bld) [Partial pressure] 71 mmHG 75-100 [facility] Platelets bldOrdered By: Sarita Quispe on 03-29-2023 Platelets (Bld) [#/Vol] 557 10*3/uL 150-450 [facility] Protein Test strip Ql (U)Ord ered By: Dre Quispe on 03-29-2023 Protein Ql (U) 15 mg/dl Negative [facility] Serum or plasma albumin keli urement (mass/volume)Ordered By: Dre Quispe on 03-29-2023 Albumin [Mass/Vol] 2.9 g/dL 3.2-5.0 [facility] Serum or plasma albumin/glob ulin mass ratioOrdered By: Dre Quispe on 03-29-2023 Albumin/Globulin [Mass ratio] 0.6 {ratio} 0.9-2.4 [facility] Serum or plasma calcium keli urement (mass/volume)Ordered By: Dre Quispe on 03-29-2023 Calcium [Mass/Vol] 8.2 mg/dL 8.5-10.1 [facility] Serum or plasma creatinine m easurement (mass/volume)Ordered By: Dre Quispe on 03-29-2023 Creatinine [Mass/Vol] 2.06 mg/dL 0.55-1.02 [facility] Comment on above: The validity of the calculated GFR & GFRAA in patients over 70 years has not been determined. Clinical correlation is essential. Serum or plasma urea nitroge n measurement (mass/volume)Ordered By: Dre Quispe on 03-29-2023 Urea nitrogen [Mass/Vol] 38 mg/dL 7-18 [facility] Squamous epithelial cells de tection in urine sediment by light microscopyOrdered By: Dre Quispe on 03-29-2023 Epithelial cells.squamous LM Ql (Urine sed) 0-5 SEEN /hpf 5-10 [facility] Thin prep Papanicolaou smear with manual screeningOrdered By: Dre Quispe on 03-29-2023 Thin prep Papanicolaou smear with manual screening 9 U/L 15-37 [facility] Thin prep Papanicolaou smear with manual screening 5 5-15 [facility] Urine blood detectionOrdered By: Dre Quispe on 03-29-2023 RBC Ql (U) Negative Negative [facility] RBC Ql (U) 0 SEEN /hpf 0-5 [facility] Urine clarityOrdered By: Sarita Quispe on 03-29-2023 Clarity (U) Clear Clear [facility] Urine color determinationOrd ered By: Dre Quispe on 03-29-2023 Color (U) Yellow Yellow [facility] Urine creatinine measurement (mass/volume)Ordered By: David Blackwell on 03-29-2023 Creatinine (U) [Mass/Vol] 147.00 mg/dL NO RANGE EST. [facility] Urine glucose detectionOrder ed By: Dre Quispe on 03-29-2023 Glucose Ql (U) Normal mg/dl Normal [facility] Urine leukocyte esterase det ection by dipstickOrdered By: Dre Quispe on 03-29-2023 Leukocyte esterase Test strip Ql (U) 25 /ul Negative [facility] Urine pHOrdered By: Dre rodriguez on 03-29-2023 pH (U) 5.0 [pH] 5.0 - 8.0 [facility] Urine sediment bacteria coun t by microscopy (number/high power field)Ordered By: Dre Quispe on 03-29-2023 Bacteria LM.HPF (Urine sed) [#/Area] 0 /[HPF] None Seen [facility] Urine specific gravity measu rementOrdered By: Dre Quispe on 03-29-2023 Specific gravity (U) [Rel density] 1.025 1.002-1.030 [facility] Urobilinogen Auto test strip Ql (U)Ordered By: Dre Quispe on 03-29-2023 Urobilinogen Ql (U) Normal mg/dl Normal [facility] pH measurementOrdered By: Jamal Angel on 03-29-2023 pH (Unsp spec) 7.37 [pH] 7.35-7.45 [facility] Absolute lymphocyte countOrd ered By: Cyn French on 12-18-2022 Lymphocytes Auto (Unsp spec) [#/Vol] 3.16 10*3/uL 0.83-4.51 [facility] Basophil percentageOrdered B y: Cyn French on 12-18-2022 Basophils/100 WBC (Bld) 0.9 % 0-1 [facility] Bilirubin [Mass/Vol] 0.20 mg/dL 0.20-1.00 [facility] Comment on above: For patients on eltr ombopag therapy, use of Dimension [place] TBIL is not recommended. Chloride [Moles/Vol] 110 mmol/L 98-107 [facility] Eosinophils/100 WBC (Bld) 4.8 % 0-5 [facility] Glucose [Mass/Vol] 80 mg/dL 74-106 [facility] Neutrophils (Bld) [#/Vol] 3.8 10*3/uL 2.0-7.7 [facility] Neutrophils/100 WBC (Bld) 47.7 % 47-70 [facility] Potassium [Moles/Vol] 3.8 mmol/L 3.5-5.1 [facility] Protein [Mass/Vol] 6.8 g/dL 6.4-8.2 [facility] Sodium [Moles/Vol] 143 mmol/L 136-145 [facility] WBC (Bld) [#/Vol] 7.9 10*3/uL 4.4-11.0 [facility] Blood erythrocytes count (nu mber/volume)Ordered By: Cyn French on 12-18-2022 RBC (Bld) [#/Vol] 3.88 10*6/uL 4.2-5.4 [facility] Blood hemoglobin measurement (mass/volume)Ordered By: Cyn French on 12-18-2022 Hemoglobin (Bld) [Mass/Vol] 9.8 g/dL 12.0-15.0 [facility] Blood lymphocytes/100 leukoc ytesOrdered By: Cyn French on 12-18-2022 Lymphocytes/100 WBC (Bld) 40.3 % 19-41 [facility] Blood monocytes/100 leukocyt esOrdered By: Cyn French on 12-18-2022 Monocytes/100 WBC (Bld) 6.0 % 0-10 [facility] Blood platelet mean volumeOr dered By: Cyn French on 12-18-2022 Platelet mean volume (Bld) [Entitic vol] 9.7 fL 6.2-12.0 [facility] Determination of erythrocyte mean corpuscular volume (MCV)Ordered By: Cyn French on 12-18-2022 MCV (RBC) [Entitic vol] 86.1 fL 81-99 [facility] Hematocrit Auto (Bld) [Volum e fraction]Ordered By: Cyn French on 12-18-2022 Hematocrit (Bld) [Volume fraction] 33.4 % 37-47 [facility] Laboratory - Chemistry and C hemistry - challengeOrdered By: Cyn French on 12-18-2022 ALP [Catalytic activity/Vol] 112 U/L 45-117 [facility] ALT [Catalytic activity/Vol] 15 U/L 13-56 [facility] CO2 [Moles/Vol] 28.0 mmol/L 21.0-32.0 [facility] Free T4 [Mass/Vol] 0.46 ng/dL 0.76-1.46 [facility] Globulin (S) [Mass/Vol] 3.8 g/dL 2.2-4.2 [facility] Magnesium [Mass/Vol] 2.3 mg/dL 1.6-2.6 [facility] Urea nitrogen/Creatinine [Mass ratio] 17.6 mg/mg 10-20 [facility] Laboratory - Hematology and Cell countsOrdered By: Cyn French on 12-18-2022 Erythrocyte distribution width (RBC) [Entitic vol] 62.5 fL 35.1-43.9 [facility] Erythrocyte distribution width (RBC) [Ratio] 19.9 % 11.6-14.6 [facility] Immature granulocytes/100 WBC (Bld) 0.300 % 0.0-0.9 [facility] Comment on above: IG% - Immature Granu locytes (promyelocytes, myelocytes and metamyelocytes) > 1% indicates that a LEFT SHIFT is Present. MCH (RBC) [Entitic mass] 25.3 pg 27.0-32.0 [facility] Nucleated RBC/100 WBC (Bld) [Ratio] 0 % 0-5 [facility] MCHC Auto (RBC) [Mass/Vol]Or dered By: Cyn French on 12-18-2022 MCHC (RBC) [Mass/Vol] 29.3 g/dL 32-36 [facility] No Panel InformationOrdered By: Cyn French on 12-18-2022 Estimated GFR (MDRD) Amer 65 mL/min >60 [facility] Comment on above: GFR Calc Estimated GFR (MDRD) Non-Af Amer 54 mL/min >60 [facility] Comment on above: Non- GFR Calc Free Triiodothyronine (T3) pg/dL 1.0 pg/mL 2.18-3.98 [facility] Thyroid Stimulating Hormone (TSH) 1.70 uIU/mL 0.358-3.74 [facility] Platelets bldOrdered By: Homer French on 12-18-2022 Platelets (Bld) [#/Vol] 461 10*3/uL 150-450 [facility] Serum or plasma albumin keli urement (mass/volume)Ordered By: Cyn French on 12-18-2022 Albumin [Mass/Vol] 3.0 g/dL 3.2-5.0 [facility] Serum or plasma albumin/glob ulin mass ratioOrdered By: Cyn French on 12-18-2022 Albumin/Globulin [Mass ratio] 0.8 {ratio} 0.9-2.4 [facility] Serum or plasma calcium keli urement (mass/volume)Ordered By: Cyn French on 12-18-2022 Calcium [Mass/Vol] 8.6 mg/dL 8.5-10.1 [facility] Serum or plasma creatinine m easurement (mass/volume)Ordered By: Cyn French on 12-18-2022 Creatinine [Mass/Vol] 1.08 mg/dL 0.55-1.02 [facility] Comment on above: The validity of the calculated GFR & GFRAA in patients over 70 years has not been determined. Clinical correlation is essential. Serum or plasma urea nitroge n measurement (mass/volume)Ordered By: Cyn French on 12-18-2022 Urea nitrogen [Mass/Vol] 19 mg/dL 7-18 [facility] Thin prep Papanicolaou smear with manual screeningOrdered By: Cyn French on 12-18-2022 Thin prep Papanicolaou smear with manual screening 14 U/L 15-37 [facility] Thin prep Papanicolaou smear with manual screening 5 5-15 [facility] Established Visit (Pain Medi cine)on 12-09-2022 Established Visit (Pain Medicine) Diagnoses/Problems Postlaminectomy syndrome of lumbosacral region (722.83) (M96.1) Chronic pain syndrome (338.4) (G89.4) Secondary fibromyalgia (729.1) (M79.7) Orders Chronic pain syndrome, Postlaminectomy syndrome of lumbosacral region, Secondary fibromyalgia Start: Baclofen 10 MG Oral Tablet; Take 1 p.o. 3 times daily time 1 week may increase to 2 p.o. 3 times daily thereafter Xray C Spine Complete Oblique/Flex/Ext; Status:Hold For - Scheduling; Requested for:[id number]; Radiologist to Determine Optimal Study : Y What are the patient's signs and symptoms? : Neck pain with radiculopathy Xray Thoracic Spine 3 View; Status:Hold For - Scheduling; Requested for:[id number]; Radiologist to Determine Optimal Study : Y What are the patient's signs and symptoms? : Neck pain with radiculopathy Chief Complaint Pain Patient presented to Pain Management to follow up . Verified patient by name and date of . Patient here for a follow up . She verbalized that she has pain everywhere . States that the nasal ketamine spray is not helping her pain . She states that the IV infusions help , she gets 100 % for three weeks . She states she gets the iv infusion every two weeks . Patient states that she had a fall three days ago , and has right sided rib pain and neck pain . She has not been seen for this injury. Adult Risk Screening There are no spiritual/cultural practices/values/needs that are important to know Initial Fall Risk Screening: CODI has fallen in the last 6 months. She has fallen due to 12/07/2022. Her fall resulted in the following injury: fell whilke attempting to get back in her electric chair , has right sided rib pain. CODI has a fear of falling. She needs assistance with Power wheel chair. Needs assistance walking in her home. She needs assistance in an unfamiliar setting. The patient is using an assistive device. Fall Risk Screening: Patient is identified as a fall risk. Care Plan: High Risk: Low and Moderate risk interventions plus: ensure patient is escorted at all times, do not leave unattended, inform provider of high risk status, discharge by wheelchair or escort assistance, room location, sitter, pre and post sedation/procedure standards, supervised toileting. Altered Mobility: assistive device, physical impairment and unsteady gait. Alteration in Mental Status: no. Relevant Medical History/Diagnosis: Multiple Dx: . Altered Elimination: no. Medications That May Alter Equilibrium:. polymedication. Sensory Deficit: no. Unable or Unwilling to Follow Directions: no. Low: current pain, age 65 or older and multiple or pertinent current diagnoses. Moderate: fall in last 6 months or fear of falling and unsteady gait/ use of assistive device/apparent weakness or functionally challenged. High: multiple falls within the last 6 months. Pain Scale: On a scale of 0 to 10, the patient rates the pain at 9. Please identify location of pain: every where all over her body. Pain Quality: aching and unable to describe. The pain makes it hard for the patient to do these things: house work, self-care (bathing, dressing, eating) and sitting , laying down standing up . History of Present Illness SUBJECTIVE: This is 67 year year old [...] nasal spray since its not helping anymore. Recall office visit 09/09/2022: This is 67 year year old female [...] excited to continue with the same treatment. Recall office visit 06/13/2022: (more content not included)... [facility] 12[facility]2022 XR Cervical spine Oblique Views Please click on the link to view the study images Normal [facility] [place] Work Phone: XR Cervical spine Oblique Views Normal [facility] Pain Management Work Phone: XR Thoracic spine 3 Views Please click on the link to view the study images Normal [facility] [place] Work Phone: XR Thoracic spine [address] [facility] Pain Management Work Phone: SPINE, CERVICAL, CMPLT, OBLI QUE/FLEX/EXTon 12-09-2022 SPINE, CERVICAL, CMPLT, OBLIQUE/FLEX/EXT Patient Name: CODI BLANK STUDY: SPINE, THORACIC, 3 VIEWS; SPINE, CERVICAL, CMPLT, OBLIQUE/FLEX/EXT; ; 12/09/2022 9:23 am INDICATION: Neck pain with radiculopathy M96.1: Postlaminectomy syndrome of lumbosacral region M79.7: Secondary fibromyalgia G89.4: Chronic pain syndrome. COMPARISON: January 03, 2022 lumbar spine radiographs. ACCESSION NUMBER(S): [id number]; [id number] ORDERING CLINICIAN: VANNA HENDRICKS FINDINGS: Cervical spine: Frontal, lateral, lateral flexion, lateral extension, and bilateral oblique views are submitted. Osseous demineralization. There is fixed 1-2 mm C4 retrolisthesis. Limited assessment of the cervicothoracic junction on the flexion views. Qmps-zw-uytoptsg spondylosis and degenerative disc changes most pronounced C5-6. No detected fracture, suspicious osseous lesion, or unusual paravertebral soft tissue abnormalities. Thoracic spine: Redemonstrated spinal fixation hardware thoracolumbar spine. Pedicle screws extend to the T10 level. Interconnecting rods extend to the T9-10 level. Mild rightward curvature thoracic spine. Likely chronic compressive deformities involving T5, T9, and T12. Interbody fusion changes noted at T11-12 and T12-L1. Degenerative changes are most pronounced L1-2 which appears similar. There is enlarged cardiac silhouette. Curvilinear bandlike density at the right base lateral suggestive of scar or atelectasis. Scattered arterial vascular calcifications. IMPRESSION: Compressive deformities thoracic spine more likely chronic although limited assessment related to osseous demineralization. Depending on concern MRI correlation could be considered. Cervical malalignment with izpe-iz-mbuzfsra spondylosis and degenerative disc changes. Osseous demineralization. Grossly intact thoracolumbar spine hardware with similar degenerative change most pronounced L1-2. Curvilinear bandlike density right lung base likely scar atelectasis. Prominent cardiomediastinal silhouette. MACRO: None Electronically signed by: BRANDEN CONNOR MD Normal [facility] SPINE, THORACIC, 3 VIEWSon 0 12-09-2022 SPINE, THORACIC, 3 VIEWS Patient Name: CODI BLANK STUDY: SPINE, THORACIC, 3 VIEWS; SPINE, CERVICAL, CMPLT, OBLIQUE/FLEX/EXT; ; 12/09/2022 9:23 am INDICATION: Neck pain with radiculopathy M96.1: Postlaminectomy syndrome of lumbosacral region M79.7: Secondary fibromyalgia G89.4: Chronic pain syndrome. COMPARISON: January 03, 2022 lumbar spine radiographs. ACCESSION NUMBER(S): [id number]; [id number] ORDERING CLINICIAN: VANNA HENDRICKS FINDINGS: Cervical spine: Frontal, lateral, lateral flexion, lateral extension, and bilateral oblique views are submitted. Osseous demineralization. There is fixed 1-2 mm C4 retrolisthesis. Limited assessment of the cervicothoracic junction on the flexion views. Jlof-aa-svpmtavq spondylosis and degenerative disc changes most pronounced C5-6. No detected fracture, suspicious osseous lesion, or unusual paravertebral soft tissue abnormalities. Thoracic spine: Redemonstrated spinal fixation hardware thoracolumbar spine. Pedicle screws extend to the T10 level. Interconnecting rods extend to the T9-10 level. Mild rightward curvature thoracic spine. Likely chronic compressive deformities involving T5, T9, and T12. Interbody fusion changes noted at T11-12 and T12-L1. Degenerative changes are most pronounced L1-2 which appears similar. There is enlarged cardiac silhouette. Curvilinear bandlike density at the right base lateral suggestive of scar or atelectasis. Scattered arterial vascular calcifications. IMPRESSION: Compressive deformities thoracic spine more likely chronic although limited assessment related to osseous demineralization. Depending on concern MRI correlation could be considered. Cervical malalignment with jcqt-ba-esetxcde spondylosis and degenerative disc changes. Osseous demineralization. Grossly intact thoracolumbar spine hardware with similar degenerative change most pronounced L1-2. Curvilinear bandlike density right lung base likely scar atelectasis. Prominent cardiomediastinal silhouette. MACRO: None Electronically signed by: BRANDEN CONNOR MD Normal [facility] Tobacco Screening.on 023 Fall risk assessment b) One or more fall s in the last year [facility] [place] Work Phone: Tobacco use status CPHS a) Yes M [facility]- [facility] [place] Work Phone: CASE MANAGEMon 11-29-2022 CASE MANAGEM HNO ID: [id number] Author: Luna Dick RN Service: ? Author Type: Registered Nurse Type: Care Mgt Progress Note Filed: 11/29/2022 12:55 PM Note Text: CARE MANAGEMENT DISCHARGE NOTE SERVICE DATE: November 29, 2022 SERVICE TIME: 12:50 PM Admission Date: 11/26/2022 LOS: 3 days Discharge Arrangement Discharge Arrangement: Home with Self Care Transportation Arrangements Transportation Arrangements: Car Date of Trip: 11/29/22 Destination: Home Handoff Communication: Handoff to: Primary Care Physician Primary Care Physician Name/Phone: Errol Michel - Additional Information: Discharge Information Row Name ED to Hosp-Admission (Discharged) from 11/26/[address] [facility] Follow-Up Appointment Provider Name Errol Michel - Patient was discharged from unit before CM Dept met with patient. SIGNATURE: Luna Dick RN PATIENT NAME: Codi Blank DATE: November 29, 2022 TIME: 12:50 PM Normal [facility] CBC panel Auto (Bld)on 11-29 Erythrocyte distribution width (RBC) [Ratio] 17.9 % High 11.5-15.0 [facility] Comment on above: Order Comment: Speci men Type: BLOOD SPECIMENOrdering Facility: [facility] Address: [address] [place] [id number] Performed By: #### 5 8410-2 ####[facility] LABORATORYCLIA [id number] [address] Hematocrit (Bld) [Volume fraction] 28.6 % Low 36.0-46.0 [facility] Comment on above: Order Comment: Speci men Type: BLOOD SPECIMENOrdering Facility: [facility] Address: [address] [place] [address] Performed By: #### 5 8410-2 ####[facility] LABORATORYCLIA [id number] [address] Hemoglobin (Bld) [Mass/Vol] 8.8 g/dL Low 11.5-15.5 [facility] Comment on above: Order Comment: Speci men Type: BLOOD SPECIMENOrdering Facility: [facility] Address: [address] [place] [address] Performed By: #### 5 8410-2 ####[facility] LABORATORYCLIA [id number] [address] MCH (RBC) [Entitic mass] 24.6 pg Low 26.0-34.0 [facility] Comment on above: Order Comment: Speci men Type: BLOOD SPECIMENOrdering Facility: [facility] Address: [address] [place] [address] Performed By: #### 5 8410-2 ####[facility] LABORATORYCLIA [id number] [address] MCHC (RBC) [Mass/Vol] 30.8 g/dL Normal 30.5-36.0 [facility] Comment on above: Order Comment: Speci men Type: BLOOD SPECIMENOrdering Facility: [facility] Address: [address] [place] [address] Performed By: #### 5 8410-2 ####[facility] LABORATORYCLIA [id number] [address] MCV (RBC) [Entitic vol] 80.1 fL Normal 80.0-100.0 [facility] Comment on above: Order Comment: Speci men Type: BLOOD SPECIMENOrdering Facility: [facility] Address: [address] [address] Performed By: #### 5 8410-2 ####BR[facility] LABORATORYCLIA [id number] [place] [address] [place] Nucleated RBC (Bld) [#/Vol] 10*3/uL Normal <0.01 [facility] Comment on above: Order Comment: Speci men Type: BLOOD SPECIMENOrdering Facility: [facility] Address: [address] [address] Performed By: #### 5 8410-2 ####BR[facility] LABORATORYCLIA [id number] [place] [address] [place] Platelet mean volume (Bld) [Entitic vol] 8.9 fL Low 9.0-12.7 [facility] Comment on above: Order Comment: Speci men Type: BLOOD SPECIMENOrdering Facility: [facility] Address: [address] [address] Performed By: #### 5 8410-2 ####BR[facility] LABORATORYCLIA [id number] [address] OF [place] Platelets (Bld) [#/Vol] 584 10*3/uL High 150-400 [facility] Comment on above: Order Comment: Speci men Type: BLOOD SPECIMENOrdering Facility: [facility] Address: [address] [address] Performed By: #### 5 8410-2 ####BR[facility] LABORATORYCLIA [id number] [place] [address] [place] RBC (Bld) [#/Vol] 3.57 10*6/uL Low 3.90-5.20 [facility] Comment on above: Order Comment: Speci men Type: BLOOD SPECIMENOrdering Facility: [facility] Address: [address] [place] [address] Performed By: #### 5 8410-2 ####BR[facility] LABORATORYCLIA [id number] [place] [address] [place] WBC (Bld) [#/Vol] 12.01 10*3/uL High 3.70-11.00 [facility] Comment on above: Order Comment: Speci men Type: BLOOD SPECIMENOrdering Facility: [facility] Address: [place] [address] Performed By: #### 5 8410-2 ####[facility] LABORATORYCLIA [id number] [place] [address] [place] CNCOon 11-29-2022 CNCO Letter Text Normal [facility] CNDSon 11-29-2022 CNDS HNO ID: [id number] Author: Mariama Lamb MD Service: General Internal Medicine Author Type: Physician Type: Discharge Summary Filed: 11/29/2022 11:57 AM Note Text: DISCHARGE SUMMARY PATIENT NAME: Codi Blank ADMISSION DATE: 11/26/2022 DISCHARGE DATE: 11/29/2022 ATTENDING PHYSICIAN: Paula Moss MD Code Status: Full Code Highest Readmission Risk Score: 30 The 30 day readmissions risk score is derived from an internally validated risk model which evaluates patient level characteristics, utilization history, medication orders and lab results up until the day of discharge. Patients with a score of 40 or above are considered highest risk for readmission. Specific patient level drivers will be listed at the bottom of the summary. CONSULTING TEAMS DURING HOSPITALIZATION: Treatment Team: Attending Provider: Paula Moss MD REASON FOR HOSPITALIZATION/DIAGNOSI S: Pneumonia - POA Sepsis- POA Anemia Asthma w/o exacerbation CVA, CAD, hypothyroid, s/p right BKA, HTN, GERD, depression, Obesity OPERATIONS DURING HOSPITALIZATION: None PROCEDURES DURING HOSPITALIZATION: No procedures performed HOSPITAL COURSE: She was treated with antibiotics and transient O2 support. She is clinically improved and being discharged to home Transitions of Care Critical Issues: as above LABS AND PROCEDURES PENDING AT DISCHARGE: No pending results. PATIENT CONDITION AT DISCHARGE: Stable DISCHARGE DISPOSITION: Home with Self Care Discharge Physical Exam: VITAL SIGNS: BP 126/60 Pulse 74 Temp 36.5 ?C (97.7 ?F) (Oral) Resp 18 Ht 147.3 cm (4' 10) Wt 67.4 kg (148 lb 9.4 oz) SpO2 96% BMI 31.06 kg/m? GENERAL: Alert, no distress, cooperative LUNGS: Lungs clear to auscultation, Good diaphragmatic excursion CARDIAC: Normal S1 and S2; no rubs, murmurs, or gallops ABDOMEN: Abdomen soft, non-tender, BS normal, No masses or organomegaly EXTREMITIES: R BKA INFORMATION PROVIDED TO PATIENT: none WOUND/SURGICAL SITE CARE: None DIET: Resume pre-hospital diet ACTIVITY: Resume pre-hospital activity ALLERGIES Allergen Reactions Adhesive Tape (Madisyn* REDNESS Biaxin [Clarithromy* Hives, Itching Patient states she has previously tolerated a Z-pack, but states they have to do it twice for it to work Ceclor [Cefaclor] Hives, Itching Doxycycline Hives, Itching Penicillins Hives, Itching Sulfa Drugs [Sulfa * Hives, Itching DISCHARGE MEDICATION: Medication List START taking these medications levoFLOXacin 750 mg tablet Commonly known as: LEVAQUIN Take 1 tablet by mouth every other day for 5 days. Start taking on: November 30, 2022 CHANGE how you take these medications DULoxetine 60 mg capsule Commonly known as: CYMBALTA Take 1 capsule by mouth once daily. What changed: when to take this CONTINUE taking these medications acetaminophen 500 mg tablet Commonly known as: TYLENOL Take 2 tablets by mouth every 6 hours. albuterol HFA 90 mcg/actuation inhaler Commonly known as: PROVENTIL HFA, VENTOLIN HFA busPIRone 10 mg tablet Commonly known as: BUSPAR CLARITIN 10 mg tablet Generic drug: loratadine clopidogrel 75 mg tablet Commonly known as: PLAVIX CYTOMEL 5 mcg tablet Generic drug: liothyronine diclofenac (EC) 75 mg EC tablet Commonly known as: VOLTAREN DULERA 100-5 mcg/actuation inhaler Generic drug: mometasone-formoterol fluconazole 200 mg tablet Commonly known as: DIFLUCAN * furosemide 20 mg tablet Commonly known as: LASIX * furosemide 40 mg tablet Commonly known as: LASIX hydrOXYchloroQUINE 200 mg tablet Commonly known as: PLAQUENIL hydrOXYzine pamoate 50 mg capsule Commonly known as: VISTARIL levothyroxine 50 mcg tablet Commonly known as: SYNTHROID LORazepam 1 mg tablet Commonly known as: ATIVAN melatonin 3 mg tablet Take 2 tablets by mouth at bedtime as needed (Insomnia). metoprolol tartrate (short acting) 25 mg tablet Commonly known as: LOPRESSOR PEN NEEDLE 31 gauge x 5/16 Generic drug: insulin needles (DISPOSABLE) TYMLOS PEN NEEDLES 31G X 09/09 pregabalin 50 mg capsule Commonly known as: LYRICA QUEtiapine 200 mg tablet Commonly known as: SEROquel SINGULAIR 10 mg tablet Generic drug: montelukast TOPAMAX 50 mg tablet Generic drug: topiramate * This list has 2 medication(s) that are the same as other medications prescribed for you. Read the directions carefully, and ask your doctor or other care provider to review them with you. Where to Get Your Medications These medications were sent to [facility] [address] [place] [id number] - [address] [place] [address] - [phone] [place] [address] levoFLOXacin 750 mg tablet FUTURE APPOINTMENTS: Follow Up with PCP: Errol Michel DO The patient's risk for 30-day readmission is determined using the following contributing factors: Pt variables contributing to increased readmission risk: (more content not included)... Normal [facility] Comprehensive metabolic 2000 panelon 11-29-2022 Albumin [Mass/Vol] 3.1 g/dL Low 3.9-4.9 [facility] Comment on above: Order Comment: Speci men Type: BLOOD SPECIMENOrdering Facility: [facility] Address: [address] [place] [address] Performed By: #### 2 4323-8 ####[facility] [id number] [address] OF [facility] ALP [Catalytic activity/Vol] 210 U/L High 34-123 [facility] Comment on above: Order Comment: Speci men Type: BLOOD SPECIMENOrdering Facility: [facility] Address: [address] [address] Performed By: #### 2 4323-8 ####[facility] [id number] [address] ALT [Catalytic activity/Vol] 18 U/L Normal 7-38 [facility] Comment on above: Order Comment: Speci men Type: BLOOD SPECIMENOrdering Facility: [facility] Address: [address] [address] Performed By: #### 2 4323-8 ####[facility] [id number] [address] STATES OF [facility] Anion gap [Moles/Vol] 11 mmol/L Normal 9-18 [facility] Comment on above: Order Comment: Speci men Type: BLOOD SPECIMENOrdering Facility: [facility] Address: [address] [place] [address] Performed By: #### 2 4323-8 ####[facility]CL[facility] [id number] [address] [place] AST [Catalytic activity/Vol] 17 U/L Normal 13-35 [facility] Comment on above: Order Comment: Speci men Type: BLOOD SPECIMENOrdering Facility: [facility] Address: [address] [place] [address] Performed By: #### 2 4323-8 ####[facility]ORYCL[facility] [id number] [address] [place] Bilirubin [Mass/Vol] mg/dL Low 0.2-1.3 [facility] Comment on above: Order Comment: Speci men Type: BLOOD SPECIMENOrdering Facility: [facility] Address: [address] [address] Performed By: #### 2 4323-8 ####[facility]ORYCLIA [id number] [address] Calcium [Mass/Vol] 8.4 mg/dL Low 8.5-10.2 [facility] Comment on above: Order Comment: Speci men Type: BLOOD SPECIMENOrdering Facility: [facility] Address: [address] [address] Performed By: #### 2 4323-8 ####[facility]ORYCL[facility] [id number] [address] OF [place] Chloride [Moles/Vol] 105 mmol/L Normal 97-105 [facility] Comment on above: Order Comment: Speci men Type: BLOOD SPECIMENOrdering Facility: [facility] Address: [address] [address] Performed By: #### 2 4323-8 ####[facility]ORYCLIA [id number] [address] [place] CO2 [Moles/Vol] 23 mmol/L Normal 22-30 [facility] Comment on above: Order Comment: Patriciai men Type: BLOOD SPECIMENOrdering Facility: [facility] Address: [address] [place] [address] Performed By: #### 2 4323-8 ####[facility]ATORYCLIA [id number] [address] STATES [facility] Creatinine [Mass/Vol] 1.02 mg/dL High 0.58-0.96 [facility] Comment on above: Order Comment: Patriciai men Type: BLOOD SPECIMENOrdering Facility: [facility] Address: [address] [place] [address] Performed By: #### 2 4323-8 ####[facility]ORYCLIA [id number] [address] ESTIMATED GLOMERULAR FILTRATION RATE 60 mL/min/1.73m??? Normal >=60 [facility] Comment on above: Order Comment: Speci men Type: BLOOD SPECIMENOrdering Facility: [facility] Address: [address] [place] [address] Result Comment: Niurka mated Glomerular Filtration Rate (eGFR) is calculated using the 2020 CKD-EPI creatinine equation. This equation utilizes serum creatinine, sex, and age as parameters. The creatinine assay has traceable calibration to isotope dilution-mass spectrometry. Refer to KDIGO guidelines for clinical interpretation. In patients with unstable renal function, e.g. those with acute kidney injury, the eGFR may not accurately reflect actual GFR. Performed By: #### 2 4323-8 ####[facility]ORYCLIA [id number] [address] Glucose [Mass/Vol] 81 mg/dL Normal 74-99 [facility] Comment on above: Order Comment: Melissa padma Type: BLOOD SPECIMENOrdering Facility: [facility] Address: [address] [place] [address] Result Comment: The [place] Diabetes Association (ADA) provides guidance for cutoff values for fasting glucose and random glucose. The ADA defines fasting as no caloric intake for at least 8 hours. Fasting plasma glucose results between 100 to 125 mg/dL indicate increased risk for diabetes (prediabetes). Fasting plasma glucose results greater than or equal to 126 mg/dL meet the criteria for diagnosis of diabetes. In the absence of unequivocal hyperglycemia, results should be confirmed by repeat testing. In a patient with classic symptoms of hyperglycemia or hyperglycemic crisis, random plasma glucose results greater than or equal to 200 mg/dL meet the criteria for diagnosis of diabetes. Reference: Standards of Medical Care in Diabetes 2016, [place] [employer]. Diabetes Care. 2016.39(Suppl 1). Performed By: #### 2 4323-8 ####[facility]ORATORYCLIA [id number] [place] [address] [place] Potassium [Moles/Vol] 4.2 mmol/L Normal 3.7-5.1 [facility] Comment on above: Order Comment: Patriciai padma Type: BLOOD SPECIMENOrdering Facility: [facility] Address: [address] [place] [address] Performed By: #### 2 4323-8 ####[facility]ORATORYCLIA [id number] [place] [address] [place] Protein [Mass/Vol] 6.5 g/dL Normal 6.3-8.0 [facility] Comment on above: Order Comment: Patriciai padma Type: BLOOD SPECIMENOrdering Facility: [facility] Address: [address] [place] [address] Performed By: #### 2 4323-8 ####[facility]ORATORYCLIA [id number] [place] [address] [place] Sodium [Moles/Vol] 139 mmol/L Normal 136-144 [facility] Comment on above: Order Comment: Speci men Type: BLOOD SPECIMENOrdering Facility: [facility] Address: [address] [place] [address] Performed By: #### 2 4323-8 ####[facility]ORATORYCLIA [id number] [place] [address] [place] Urea nitrogen [Mass/Vol] 10 mg/dL Normal 7-21 [facility] Comment on above: Order Comment: Speci men Type: BLOOD SPECIMENOrdering Facility: [facility] Address: [place] [address] Performed By: #### 2 4323-8 ####[facility] LABORATORYCLIA [id number] [place] [address] [facility] [place] ECG COMPLETEon 11-29-2022 ECG COMPLETE Ventricular Rate : 7 3 BPM Atrial Rate : 74 BPM QRS Duration : 88 ms Q-T Interval : 456 ms QTC Calculation(Bazett) : 502 ms Calculated R [place] : 64 degrees Calculated T [place] : 63 degrees ACCELERATED JUNCTIONAL RHYTHM PROLONGED QT ABNORMAL ECG WHEN COMPARED WITH ECG OF 28-NOV-2022 10:32, JUNCTIONAL RHYTHM HAS REPLACED SINUS RHYTHM Confirmed by JUAN SANABRIA M.D. ([id number]) on 12/02/2022 4:39:04 AM NAME : CODI BLANK PID : [id number] : 1955 Gender : Female Race : ORD : [id number] Procedure Date : Nov 29 2022 09:38:54 Edit Date : Dec 02 2022 04:39:10 Diagnosis: ACCELERATED JUNCTIONAL RHYTHM PROLONGED QT ABNORMAL ECG WHEN COMPARED WITH ECG OF 28-NOV-2022 10:32, JUNCTIONAL RHYTHM HAS REPLACED SINUS RHYTHM Confirmed by JUAN SANABRIA M.D. ([id number]) on 12/02/2022 4:39:04 AM Test Reason : Check QT Location : 16 : [address] [place] [address] Overread By : JUAN SANABRIA M.D. Edited By : JUAN SANABRIA M.D. Referred By : , Acquired by : [id number], Normal [facility] THERAPY NTon 11-29-2022 THERAPY NT HNO ID: [id number] Author: Amanda Badillo, PT Service: Physical Therapy Author Type: Physical Therapist Type: Therapy (PT/OT/Speech/Resp) Filed: 11/29/2022 10:33 AM Note Text: Physical Therapy Evaluation SERVICE DATE: 11/29/2022 SERVICE TIME: 850 to 905 ROOM: [place] [address] Recommended Discharge Disposition: Home Recommended Discharge Disposition Comments: Pt currently admitted for pneumonia. Patient demonstrates near baseline functional mobiltiy and is able to perform bed to power chair transfers with SBA. Recommend return home when medically appropriate Anticipated Discharge Needs: Physical Assist at Home, Supervision at Home Physical Assist at Home for: Laundry, Cleaning, Meals, Transportation, Shopping Supervision at Home due to: Other: See Comment (initially for optimal safety) Recommended Discharge Equipment: No equipment needs anticipated PT 6 Clicks Score: 18 Precautions/Activity Restrictions: Fall Risk Precaution/Activity Restriction Comments: standard Current Hospital Course: Chest XR showing Collapse of the right lower lobe is suspected Reason for Hospital Admission: Pneumonia Relevant Past Medical History: CVA, CAD, hypothyroid, s/p right BKA, HTN, GERD, depression, COPD, and asthma Response to Therapy Interventions: Good Participation in Activities, Improved Tolerance for Activity, On-Track to Achieve Discharge Goals Continued Skilled Needs Due to: Continued Monitoring of Vital Signs During Mobility Required Physical Therapy Problem List: Education Deficit, Balance Impaired Treatment Interventions: Education, Self Care / Home Management, Energy Conservation Training, Joint Mobility, Strengthening, Functional Mobility Training, Balance Training, Edema Management, Pain Management Plan for Next Visit: Bed Mobility, Chair Transfer Training, Sitting Balance, Sit to Stand Transfers Home Environment Patient Lives With: Spouse Assistance Available: 24-Hour Entry To Home: Ramp Number Of Stairs To Bed/Bath: 0 Tub/Shower Type: walk in shower with seat Laundry: completes in basement Equipment Owned: [employer] Prior Functional Level: Required Assistance Assistance Required With: Cleaning, Laundry, Meals, Medication Management, Safety, Shopping, Transportation Prior Functional Level Comments: Patient reports Indep ADLs, has assist if needed, utilizes scooter for functional mobilty and is able to transfer indpendently to shower, toilet, bed and chair to and from scooter, shares IADLS with Subjective: Pt reports, I'm going home today. Agreeable to PT, cleared with RN CURRENT FUNCTIONAL STATUS: Most recent performance Current Functional Mobility Assist Level Additional Information Rolling Supine to Sit Stand By Assistance Sit to Supine Additional Information OOB in power chair Scooting Stand By Assistance Sit to Stand Stand By Assistance Stand to Sit Stand By Assistance Bed to Chair Stand By Assistance Bed To Chair Transfer Type: Stand Pivot Toilet/Commode Gait Stairs Curb Step Car Transfer Blank prasad indicate activity not attempted Balance: Static Sitting, Dynamic Sitting, Static Standing, Dynamic Standing Static Sitting Balance: Good Patient able to maintain balance without handhold support, limited postural sway Dynamic Sitting Balance: Fair Patient accepts minimal challenge, able to maintain balance while turning head/trunk Static Standing Balance: Good Patient able to maintain balance without handhold support, limited postural sway Dynamic Standing Balance: Fair Patient accepts minimal challenge, able to maintain balance while turning head/trunk -HLM: 4: Move to chair / commode Learning/Educational Needs: Discharge Plan, Disease Process, Changes in Plan of Care, Plan of Care, Functional Activities/Mobility Goals for Plan of Care: Patient/Caregiver Goals: Go Home Goals: Patient will demonstrate understanding of importance of mobility during hospital stay and resolve all functional needs identified. Transfer: Pt able to perform bed to chair transfer independently Progress Toward Goals: Progressing as expected Rehab Potential: Good Patient will be discontinued from Physical Therapy when no further skilled needs are identified in this setting. PLAN: PT Frequency: Discontinue Therapy Services Reasons Therapy Services Discontinued: No skilled needs Plan of Care developed with: Patient TREATMENT INTERVENTIONS: Therapy Diagnosis: No Skilled Need Interventions Provided: Evaluation $ Evaluation-Low (99051) Billed Units: 1 unit Training AND Education Provided in: Anatomy and Impact on Deficits, Assistive Device Use, Bed Mobility, Benefits of In-Hospital Mobility, Discharge Planning, Equipment, Expected Functional Level, Falls Prevention, Role of Physical Therapy, Sitting Balance, Standing Balance, Transfers, Treatment Protocol The Following Therapeutic Skills Were Used: Activity Dosi (more content not included)... Normal [facility] CBC panel Auto (Bld)on 11-28 Erythrocyte distribution width (RBC) [Ratio] 17.5 % High 11.5-15.0 [facility] Comment on above: Order Comment: Speci men Type: BLOOD SPECIMENOrdering Facility: [facility] Address: [address] [place] [address] Performed By: #### 6 00-7 #### [facility] CLIA [id number] [address] [place] [address] [place] Hematocrit (Bld) [Volume fraction] 27.1 % Low 36.0-46.0 [facility] Comment on above: Order Comment: Speci men Type: BLOOD SPECIMENOrdering Facility: [facility] Address: [address] [place] [address] Performed By: #### 6 -7 #### [facility] CLIA [id number] [address] [place] [address] [place] Hemoglobin (Bld) [Mass/Vol] 8.5 g/dL Low 11.5-15.5 [facility] Comment on above: Order Comment: Speci men Type: BLOOD SPECIMENOrdering Facility: [facility] Address: [address] [place] [address] Performed By: #### 6 00-7 #### [facility] CLIA [id number] [address] [place] [address] [place] MCH (RBC) [Entitic mass] 24.9 pg Low 26.0-34.0 [facility] Comment on above: Order Comment: Speci men Type: BLOOD SPECIMENOrdering Facility: [facility] Address: [address] [place] [address] Performed By: #### 6 00-7 #### [facility] CLIA [id number] [address] [place] [address] [place] MCHC (RBC) [Mass/Vol] 31.4 g/dL Normal 30.5-36.0 [facility] Comment on above: Order Comment: Speci men Type: BLOOD SPECIMENOrdering Facility: [facility] Address: [address] [place] [address] Performed By: #### 6 00-7 #### [facility] CLIA [id number] [address] [place] [address] [place] MCV (RBC) [Entitic vol] 79.2 fL Low 80.0-100.0 [facility] Comment on above: Order Comment: Speci men Type: BLOOD SPECIMENOrdering Facility: [facility] Address: [address] [place], [place] [address] Performed By: #### 6 00-7 #### [facility] CLIA [id number] [address] [place] [address] [place] Nucleated RBC (Bld) [#/Vol] 10*3/uL Normal <0.01 [facility] Comment on above: Order Comment: Speci men Type: BLOOD SPECIMENOrdering Facility: [facility] Address: [address] Performed By: #### 6 00-7 #### [facility] CLIA [id number] [address] [place] [address] [place] Platelet mean volume (Bld) [Entitic vol] 8.9 fL Low 9.0-12.7 [facility] Comment on above: Order Comment: Speci men Type: BLOOD SPECIMENOrdering Facility: [facility] Address: [address] Performed By: #### 6 00-7 #### [facility] CLIA [id number] [address] [place] [address] [place] Platelets (Bld) [#/Vol] 519 10*3/uL High 150-400 [facility] Comment on above: Order Comment: Speci men Type: BLOOD SPECIMENOrdering Facility: [facility] Address: [address] Performed By: #### 6 00-7 #### [facility] CLIA [id number] [address] [place] [address] [place] RBC (Bld) [#/Vol] 3.42 10*6/uL Low 3.90-5.20 [facility] Comment on above: Order Comment: Speci men Type: BLOOD SPECIMENOrdering Facility: [facility] Address: [address] [place] [address] Performed By: #### 6 00-7 #### [facility] CLIA [id number] [address] [place] [address] [place] WBC (Bld) [#/Vol] 10.57 10*3/uL Normal 3.70-11.00 [facility] Comment on above: Order Comment: Speci men Type: BLOOD SPECIMENOrdering Facility: [facility] Address: [address] [place], [place] [address] Performed By: #### 6 -7 #### [facility] CLIA [id number] [address] [place] [address] [place] Comprehensive metabolic 2000 panelon 11-28-2022 Albumin [Mass/Vol] 3.1 g/dL Low 3.9-4.9 [facility] Comment on above: Order Comment: Speci men Type: BLOOD SPECIMENOrdering Facility: [facility] Address: [address] [place] [address] Performed By: #### 6 -7 #### [facility] CLIA [id number] [address] [place] [address] [place] ALP [Catalytic activity/Vol] 248 U/L High 34-123 [facility] Comment on above: Order Comment: Speci men Type: BLOOD SPECIMENOrdering Facility: [facility] Address: [address] [place], [place] [address] Performed By: #### 6 -7 #### [facility] CLIA [id number] [address] [place] [address] [place] ALT [Catalytic activity/Vol] 21 U/L Normal 7-38 [facility] Comment on above: Order Comment: Speci men Type: BLOOD SPECIMENOrdering Facility: [facility] Address: [address] [place], [place] [address] Performed By: #### 6 -7 #### [facility] CLIA [id number] [address] [place] [address] [place] Anion gap [Moles/Vol] 9 mmol/L Normal 9-18 [facility] Comment on above: Order Comment: Speci men Type: BLOOD SPECIMENOrdering Facility: [facility] Address: [address] [place] [address] Performed By: #### 6 00-7 #### [facility] CLIA [id number] [address] [place] [address] [place] AST [Catalytic activity/Vol] 18 U/L Normal 13-35 [facility] Comment on above: Order Comment: Speci men Type: BLOOD SPECIMENOrdering Facility: [facility] Address: [address] Performed By: #### 6 00-7 #### [facility] CLIA [id number] [address] [place] [address] [place] Bilirubin [Mass/Vol] mg/dL Low 0.2-1.3 [facility] Comment on above: Order Comment: Speci men Type: BLOOD SPECIMENOrdering Facility: [facility] Address: [address] Performed By: #### 6 00-7 #### [facility] CLIA [id number] [address] [place] [address] [place] Calcium [Mass/Vol] 8.7 mg/dL Normal 8.5-10.2 [facility] Comment on above: Order Comment: Speci men Type: BLOOD SPECIMENOrdering Facility: [facility] Address: [address] Performed By: #### 6 00-7 #### [facility] CLIA [id number] [address] [place] [address] [place] Chloride [Moles/Vol] 108 mmol/L High 97-105 [facility] Comment on above: Order Comment: Speci men Type: BLOOD SPECIMENOrdering Facility: [facility] Address: [address] [place] [address] Performed By: #### 6 00-7 #### [facility] CLIA [id number] [address] [place] [address] [place] CO2 [Moles/Vol] 24 mmol/L Normal 22-30 [facility] Comment on above: Order Comment: Speci men Type: BLOOD SPECIMENOrdering Facility: [facility] Address: [address] [place] [address] Performed By: #### 6 00-7 #### [facility] CLIA [id number] [address] [place] [address] [place] Creatinine [Mass/Vol] 1.05 mg/dL High 0.58-0.96 [facility] Comment on above: Order Comment: Melissa rouse Type: BLOOD SPECIMENOrdering Facility: [facility] Address: [address] [place] [address] Performed By: #### 6 00-7 #### [facility] CLIA [id number] [address] [place] [address] [place] ESTIMATED GLOMERULAR FILTRATION RATE 58 mL/min/1.73m??? Low >=60 [facility] Comment on above: Order Comment: Melissa rouse Type: BLOOD SPECIMENOrdering Facility: [facility] Address: [address] [place] [address] Result Comment: Niurka mated Glomerular Filtration Rate (eGFR) is calculated using the 2020 CKD-EPI creatinine equation. This equation utilizes serum creatinine, sex, and age as parameters. The creatinine assay has traceable calibration to isotope dilution-mass spectrometry. Refer to KDIGO guidelines for clinical interpretation. In patients with unstable renal function, e.g. those with acute kidney injury, the eGFR may not accurately reflect actual GFR. Performed By: #### 6 00-7 #### [facility] CLIA [id number] [address] [place] [address] [place] Glucose [Mass/Vol] 93 mg/dL Normal 74-99 [facility] Comment on above: Order Comment: Melissa rouse Type: BLOOD SPECIMENOrdering Facility: [facility] Address: [address] [place] [address] Result Comment: The [place] Diabetes Association (ADA) provides guidance for cutoff values for fasting glucose and random glucose. The ADA defines fasting as no caloric intake for at least 8 hours. Fasting plasma glucose results between 100 to 125 mg/dL indicate increased risk for diabetes (prediabetes). Fasting plasma glucose results greater than or equal to 126 mg/dL meet the criteria for diagnosis of diabetes. In the absence of unequivocal hyperglycemia, results should be confirmed by repeat testing. In a patient with classic symptoms of hyperglycemia or hyperglycemic crisis, random plasma glucose results greater than or equal to 200 mg/dL meet the criteria for diagnosis of diabetes. Reference: Standards of Medical Care in Diabetes 2016, [place] [employer]. Diabetes Care. 2016.39(Suppl 1). Performed By: #### 6 00-7 #### [facility] CLIA [id number] [address] [place] [address] [place] Potassium [Moles/Vol] 4.6 mmol/L Normal 3.7-5.1 [facility] Comment on above: Order Comment: Speci men Type: BLOOD SPECIMENOrdering Facility: [facility] Address: [address] [place] [address] Performed By: #### 6 -7 #### [facility] CLIA [id number] [address] [place] [address] [place] Protein [Mass/Vol] 6.5 g/dL Normal 6.3-8.0 [facility] Comment on above: Order Comment: Speci men Type: BLOOD SPECIMENOrdering Facility: [facility] Address: [address] Performed By: #### 6 -7 #### [facility] CLIA [id number] [address] [place] [address] [place] Sodium [Moles/Vol] 141 mmol/L Normal 136-144 [facility] Comment on above: Order Comment: Speci men Type: BLOOD SPECIMENOrdering Facility: [facility] Address: [address] [place] [address] Performed By: #### 6 -7 #### [facility] CLIA [id number] [address] [place] [address] [place] Urea nitrogen [Mass/Vol] 8 mg/dL Normal 7-21 [facility] Comment on above: Order Comment: Speci men Type: BLOOD SPECIMENOrdering Facility: [facility] Address: [address] Performed By: #### 6 00-7 #### [facility] CLIA [id number] [address] [facility] [place] [id number] [place] ECG COMPLETEon 11-28-2022 ECG COMPLETE Ventricular Rate : 7 4 BPM Atrial Rate : 74 BPM P-R Interval : 156 ms QRS Duration : 92 ms Q-T Interval : 438 ms QTC Calculation(Bazett) : 486 ms Calculated P [place] : 26 degrees Calculated R [place] : 58 degrees Calculated T [place] : 61 degrees NORMAL SINUS RHYTHM LOW VOLTAGE QRS NONSPECIFIC ST ABNORMALITY ABNORMAL ECG WHEN COMPARED WITH ECG OF 26-NOV-2022 16:45, MINIMAL CRITERIA FOR INFERIOR INFARCT ARE NO LONGER PRESENT ST ELEVATION NOW PRESENT IN INFERIOR LEADS NONSPECIFIC T WAVE ABNORMALITY NO LONGER EVIDENT IN INFERIOR LEADS NONSPECIFIC T WAVE ABNORMALITY, IMPROVED IN ANTEROLATERAL LEADS Confirmed by JUAN SANABRIA M.D. ([id number]) on 12/02/2022 4:39:15 AM NAME : CODI BLANK PID : [id number] : 1955 Gender : Female Race : ORD : [id number] Procedure Date : Nov 28 2022 10:32:55 Edit Date : Dec 02 2022 04:39:17 Diagnosis: NORMAL SINUS RHYTHM LOW VOLTAGE QRS NONSPECIFIC ST ABNORMALITY ABNORMAL ECG WHEN COMPARED WITH ECG OF 26-NOV-2022 16:45, MINIMAL CRITERIA FOR INFERIOR INFARCT ARE NO LONGER PRESENT ST ELEVATION NOW PRESENT IN INFERIOR LEADS NONSPECIFIC T WAVE ABNORMALITY NO LONGER EVIDENT IN INFERIOR LEADS NONSPECIFIC T WAVE ABNORMALITY, IMPROVED IN ANTEROLATERAL LEADS Confirmed by JUAN SANABRIA M.D. ([id number]) on 12/02/2022 4:39:15 AM Test Reason : Check QT Location : 16 : 4S 401.1 Overread By : JUAN SANABRIA M.D. Edited By : JUAN SANABRIA M.D. Referred By : Priscila BENJAMIN Acquired by : Willis ALMAGUER [facility] THERAPY NTon 11-28-2022 THERAPY NT HNO ID: [id number] Author: Brijesh Lowry OTR/Dani Service: Occupational Therapy Author Type: Occupational Therapist Type: Therapy (PT/OT/Speech/Resp) Filed: 11/28/2022 2:11 PM Note Text: Occupational Therapy Evaluation SERVICE DATE: 11/28/2022 SERVICE TIME: 1320 to 1345 ROOM: [place] [address] Total Joint Replacement Discharge Readiness: Not Applicable Recommended Discharge Disposition: Home Recommended Discharge Disposition Comments: Feel patient is safe to reurn home with Anticipated Discharge Needs: Physical Assist at Home, Supervision at Home Physical Assist at Home for: Cleaning, Laundry, Meals, Medication Management, Safety, Self Care, Shopping, Transportation Supervision at Home due to: Decreased safety awareness OT 6 Clicks Score: 21 Precautions/Activity Restrictions: Impulsive with Activity Precaution/Activity Restriction Comments: standard Current Hospital Course: Admitted with Flu Like Symptoms and Hallucinations , pneumonia, Reason for Hospital Admission: Admitted with Flu Like Symptoms and Hallucinations , pneumonia, Relevant Past Medical History: CVA, CAD, hypothyroid, s/p right BKA, HTN, GERD, depression, COPD, and asthma Response to Therapy Interventions: Good Participation in Activities, On-Track to Achieve Discharge Goals Continued Skilled Needs Due to: Functional Impairment, Safety Concerns Occupational Therapy Problem List: Education Deficit, Safety Deficits, Impaired Self Care, Decreased Strength, Functional Mobility Impairment Cognition/Communication Deficits Responsiveness: Alert, Awake Follows Commands: Cueing Needed Cueing to Follow Commands: Minimum (slightly impulsive at times moving quickly) Attention Deficits: Distractible Cognitive Clinical Tests and Screens: Short Blessed Test 1. What Year Is It Now?: Correct 2. What Month Is It Now?: Correct 3. What Time is it? (WIthin 1 hour): Correct 4. Count Aloud Backwards 20 to 1 (Errors): 0 5. Months of the Year in Reverse Order (Errors): 0 6. Memory Phrase (Errors) : 4 Short Blessed Final Score: 8 Treatment Interventions: Education, Self Care/Home Management, Strengthening, Functional Mobility Training, Balance Training Plan for Next Visit: Chair/Commode Transfer Training, Dressing Training, Exercise Instruction/Handout Home Environment Patient Lives With: Spouse Assistance Available: 24-Hour Entry To Home: Ramp Number Of Stairs To Bed/Bath: 0 Tub/Shower Type: walk in shower with seat Laundry: completes in basement Equipment Owned: [employer] Prior Functional Level: Required Assistance Assistance Required With: Cleaning, Laundry, Meals, Medication Management, Safety, Shopping, Transportation Prior Functional Level Comments: Patient reports Indep ADLs, has assist if needed, utilizes scooter for functional mobilty and is able to transfer indpendently to shower, toilet, bed and chair to and from scooter, shares IADLS with Occupational Factors Life Roles: Spouse/Significant Other Identified Strengths: Good Support System, Access to Healthcare Identified Barriers: Difficulty with ADLs/IADLs Subjective: Patient cleared by nursing supine in bed agreeable to OT CURRENT FUNCTIONAL STATUS: Most recent performance Current Activities of Daily Living Assist Level Additional Information Feeding Independent Grooming Set Up, Additional Information in bed or SBA at sink in scooter Bathing Upper Body Additional Information, Stand By Assistance per clinical judgement seated Bathing Lower Body Contact Guard Assistance, Additional Information per clinical judgement seated Dressing Upper Body Independent Dressing Lower Body Stand By Assistance, Additional Information donned sock seated EOB Toileting Contact Guard Assistance, Additional Information per clinical judgement Instrumental Activities of Daily Living Assist Level Additional Information Meal/Beverage Prep Cleaning Laundry Medication Management with Strategies Functional Mobility Assist Level Additional Information Rolling Supine to Sit Stand By Assistance Sit to Supine Stand By Assistance Scooting Stand By Assistance Sit to Stand Contact Guard Assistance Stand to Sit Contact Guard Assistance Bed to Chair Contact Guard Assistance, Additional Information Stand Pivot Gait Belt bed to and from scooter and BSC Toilet/Commode Shower Functional Mobility Blank prasad indicate activity not attempted Learning/Educational Needs: Discharge Plan, Family Education/Training, Functional Activities/Mobility, Plan of Care, Rehabilitation Techniques and Procedures, Safety, Self Care Goals for Plan of Care: Patient/Caregiver Goals: Reduce ADL/IADL barriers Goals: Patient will demonstrate progress with self-care, cognitive and/or coping needs identified to allow safe discharge to home with available support and/or physical assistance. Progress Toward Goals: Progressing as expected R (more content not included)... Normal [facility] CASE MGT IN [place] 2022 CASE MGT [facility] HNO ID: [id number] Author: Luli Keyes RN Service: ? Author Type: Registered Nurse Type: Care Mgt Initial Assessment Filed: 11/27/2022 12:49 PM Note Text: CARE MANAGEMENT: ASSESSMENT AND DISCHARGE PLAN SERVICE DATE: November 27, 2022 SERVICE TIME: 10:46 AM PCP: Errol Michel DO (confirmed) Primary Contact: Extended Emergency Contact Information Primary Emergency Contact: Forrest Blank Address: [address] [place] [address] Mobile Relation: Spouse Secondary Emergency Contact: KrisangelinaBranden quiles Address: [address] [place] [id number] [facility] Mobile Relation: Son Admission Status: Inpatient Insurance Provider: [facility] MEDICARE ADVANTAGE PPO Discharge Planning requested by: Potential Transition Plans No Services Indicated Advance Directives Current Advance Directive: Living Will;Health Care Power of Gem Expert In Chart: No Current Living Arrangements and Support Lives with: Spouse/significant other Type of Residence: Private Residence (House) Does the patient have to climb stairs at home?: No Support: Spouse/significant other How do you manage to accomplish the following: Independent: Bathe/Shower;Dress;Meals /Meal Prep;Going to the bathroom;Medication Management Needs Assistance: Ambulation Dependent: Transportation to appointments/community Current Services/Equipment Current Post-Acute Service(s): DME, Oxygen Current O2 Usage (device, rate, continuous/pulse and hrs per day): 4 LPM, nocturnal only, mask Current DME Type: Cane, Continuous Positive Airway Pressure, Electric scooter, Grab bars, Oxygen, Rolling walker, Shower seat Current Post-Acute Service(s) Provider: Harvey Discharge Planning Patient Goal(s): General wellness [place] of Choice Explained: Are you interested in bedside delivery of your medications? No Discharge Planning Participant(s): Patient;Spouse/significa nt other Patient/Family Comments: Caregiver Assessment: Caregiver is ready, willing and able to meet the patient's needs as recommended by the inter-professional team: Yes Name of Caregiver: Home with spouse Transport at Discharge: Transportation Arrangements: To Be Determined Needs Prior to Discharge: Needs Prior to Discharge: Other: See Comment (Medical clearance) Post-Acute Discharge Plan: Home no needs. Met with patient and spouse at bedside, introduced self/role of TCC. Patient presented to [place] ED c/o flu-like symptoms, cough, fatigue. Patient admitted to [facility] for further evaluation and treatment of Pneumonia. Patient lives in a single story home with her spouse. She uses a electric wheelchair to get around, her home has a ramp and they have a mobility van for transportation. Patient reports being independent with most ADLs and IADLs. She does not drive. No services anticipated at discharge. CM will remain available for discharge planning needs. SIGNATURE: Luli Keyes RN PATIENT NAME: Codi Blank DATE: November 27, 2022 TIME: 12:44 PM CONTACT #: [phone] Normal [facility] CBC panel Auto (Bld)on 11-27 Erythrocyte distribution width (RBC) [Ratio] 17.7 % High 11.5-15.0 [facility] Comment on above: Order Comment: Speci men Type: BLOOD SPECIMENOrdering Facility: [facility] Address: [address] [place] [address] Performed By: #### 6 00-7 #### [facility] CLIA [id number] [address] [place] [address] [place] Hematocrit (Bld) [Volume fraction] 25.7 % Low 36.0-46.0 [facility] Comment on above: Order Comment: Speci men Type: BLOOD SPECIMENOrdering Facility: [facility] Address: [address] [place] [address] Performed By: #### 6 00-7 #### [facility] CLIA [id number] [address] [place] [address] [place] Hemoglobin (Bld) [Mass/Vol] 8.0 g/dL Low 11.5-15.5 [facility] Comment on above: Order Comment: Speci men Type: BLOOD SPECIMENOrdering Facility: [facility] Address: [address] [place] [address] Performed By: #### 6 00-7 #### [facility] CLIA [id number] [address] [place] [address] [place] MCH (RBC) [Entitic mass] 25.2 pg Low 26.0-34.0 [facility] Comment on above: Order Comment: Speci men Type: BLOOD SPECIMENOrdering Facility: [facility] Address: [address] [place] [address] Performed By: #### 6 00-7 #### [facility] CLIA [id number] [address] [place] [address] [place] MCHC (RBC) [Mass/Vol] 31.1 g/dL Normal 30.5-36.0 [facility] Comment on above: Order Comment: Speci men Type: BLOOD SPECIMENOrdering Facility: [facility] Address: [address] [place], [place] [address] Performed By: #### 6 00-7 #### [facility] CLIA [id number] [address] [place] [address] [place] MCV (RBC) [Entitic vol] 80.8 fL Normal 80.0-100.0 [facility] Comment on above: Order Comment: Speci men Type: BLOOD SPECIMENOrdering Facility: [facility] Address: [address] [place], [place] [address] Performed By: #### 6 00-7 #### [facility] CLIA [id number] [address] [place] [address] [place] Nucleated RBC (Bld) [#/Vol] 10*3/uL Normal <0.01 [facility] Comment on above: Order Comment: Speci men Type: BLOOD SPECIMENOrdering Facility: [facility] Address: [address] [place], [place] [address] Performed By: #### 6 00-7 #### [facility] CLIA [id number] [address] [place] [address] [place] Platelet mean volume (Bld) [Entitic vol] 9.1 fL Normal 9.0-12.7 [facility] Comment on above: Order Comment: Speci men Type: BLOOD SPECIMENOrdering Facility: [facility] Address: [address] [place], [place] [address] Performed By: #### 6 00-7 #### [facility] CLIA [id number] [address] [place] [address] [place] Platelets (Bld) [#/Vol] 483 10*3/uL High 150-400 [facility] Comment on above: Order Comment: Speci men Type: BLOOD SPECIMENOrdering Facility: [facility] Address: [address] Performed By: #### 6 00-7 #### [facility] CLIA [id number] [address] [place] [address] [place] RBC (Bld) [#/Vol] 3.18 10*6/uL Low 3.90-5.20 [facility] Comment on above: Order Comment: Speci men Type: BLOOD SPECIMENOrdering Facility: [facility] Address: [address] Performed By: #### 6 00-7 #### [facility] CLIA [id number] [address] [place] [address] [place] WBC (Bld) [#/Vol] 12.71 10*3/uL High 3.70-11.00 [facility] Comment on above: Order Comment: Speci men Type: BLOOD SPECIMENOrdering Facility: [facility] Address: [address] Performed By: #### 6 00-7 #### [facility] CLIA [id number] [address] [place] [address] [place] Comprehensive metabolic 2000 panelon 11-27-2022 Albumin [Mass/Vol] 2.7 g/dL Low 3.9-4.9 [facility] Comment on above: Order Comment: Speci men Type: BLOOD SPECIMENOrdering Facility: [facility] Address: [address] Performed By: #### 2 4323-8, 2132-9, 2284-8 ####[facility] [id number] [place] [address] [place] ALP [Catalytic activity/Vol] 301 U/L High 34-123 [facility] Comment on above: Order Comment: Speci men Type: BLOOD SPECIMENOrdering Facility: [facility] Address: [address] [place] [address] Performed By: #### 2 4322-8, 2131-12, 2283-11 ####[facility] [id number] [address] [place] ALT [Catalytic activity/Vol] 28 U/L Normal 7-38 [facility] Comment on above: Order Comment: Speci men Type: BLOOD SPECIMENOrdering Facility: [facility] Address: [place] [address] Performed By: #### 2 8, 2131-12, 2283-11 ####[facility] [id number] [address] [place] Anion gap [Moles/Vol] 9 mmol/L Normal 9-18 [facility] Comment on above: Order Comment: Speci men Type: BLOOD SPECIMENOrdering Facility: [facility] Address: [place] [address] Performed By: #### 2 8, 2131-12, 2283-11 ####[facility] [id number] [address] [place] [facility] AST [Catalytic activity/Vol] 28 U/L Normal 13-35 [facility] Comment on above: Order Comment: Speci men Type: BLOOD SPECIMENOrdering Facility: [facility] Address: [place] [address] Performed By: #### 2 8, 2131-12, 2283-11 ####[facility] [id number] [place] [address] [place] Bilirubin [Mass/Vol] mg/dL Low 0.2-1.3 [facility] Comment on above: Order Comment: Speci men Type: BLOOD SPECIMENOrdering Facility: [facility] Address: [place] [address] Performed By: #### 2 8, 2131-12, 2283-11 ####[facility] [id number] [address] [place] Calcium [Mass/Vol] 8.3 mg/dL Low 8.5-10.2 [facility] Comment on above: Order Comment: Speci men Type: BLOOD SPECIMENOrdering Facility: [facility] Address: [place] [address] Performed By: #### 2 4323-8, 2131-12, 2283-11 ####[facility] [id number] [place] [address] [place] Chloride [Moles/Vol] 108 mmol/L High 97-105 [facility] Comment on above: Order Comment: Speci men Type: BLOOD SPECIMENOrdering Facility: [facility] Address: [place] [address] Performed By: #### 2 4323-8, 2131-12, 2283-11 ####[facility] [id number] [address] [place] CO2 [Moles/Vol] 22 mmol/L Normal 22-30 [facility] Comment on above: Order Comment: Speci men Type: BLOOD SPECIMENOrdering Facility: [facility] Address: [place] [address] Performed By: #### 2 4323-8, 2131-12, 2283-11 ####[facility] [id number] [address] [place] Creatinine [Mass/Vol] 0.98 mg/dL High 0.58-0.96 [facility] Comment on above: Order Comment: Speci men Type: BLOOD SPECIMENOrdering Facility: [facility] Address: [place] [address] Performed By: #### 2 4323-8, 2131-12, 2283-11 ####[facility] [id number] [address] [place] ESTIMATED GLOMERULAR FILTRATION RATE 63 mL/min/1.73m??? Normal >=60 [facility] Comment on above: Order Comment: Speci men Type: BLOOD SPECIMENOrdering Facility: [facility] Address: [address] [place] [address] Result Comment: Niurka mated Glomerular Filtration Rate (eGFR) is calculated using the 2020 CKD-EPI creatinine equation. This equation utilizes serum creatinine, sex, and age as parameters. The creatinine assay has traceable calibration to isotope dilution-mass spectrometry. Refer to KDIGO guidelines for clinical interpretation. In patients with unstable renal function, e.g. those with acute kidney injury, the eGFR may not accurately reflect actual GFR. Performed By: #### 2 432-8, 2131-12, 2283-11 ####[facility] [id number] [place] [address] [place] Glucose [Mass/Vol] 82 mg/dL Normal 74-99 [facility] Comment on above: Order Comment: Melissa rouse Type: BLOOD SPECIMENOrdering Facility: [facility] Address: [address] [place], [place] [address] Result Comment: The [place] Diabetes Association (ADA) provides guidance for cutoff values for fasting glucose and random glucose. The ADA defines fasting as no caloric intake for at least 8 hours. Fasting plasma glucose results between 100 to 125 mg/dL indicate increased risk for diabetes (prediabetes). Fasting plasma glucose results greater than or equal to 126 mg/dL meet the criteria for diagnosis of diabetes. In the absence of unequivocal hyperglycemia, results should be confirmed by repeat testing. In a patient with classic symptoms of hyperglycemia or hyperglycemic crisis, random plasma glucose results greater than or equal to 200 mg/dL meet the criteria for diagnosis of diabetes. Reference: Standards of Medical Care in Diabetes 2016, [place] [employer] Association. Diabetes Care. 2016.39(Suppl 1). Performed By: #### 2 432-8, 2131-12, 2283-11 ####[facility] [id number] [place] [address] [place] Potassium [Moles/Vol] 4.5 mmol/L Normal 3.7-5.1 [facility] Comment on above: Order Comment: Melissa rouse Type: BLOOD SPECIMENOrdering Facility: [facility] Address: [address] [place] [address] Performed By: #### 2 4323-8, 2131-12, 2283-11 ####[facility] [id number] [place] [address] [place] Protein [Mass/Vol] 5.8 g/dL Low 6.3-8.0 [facility] Comment on above: Order Comment: Speci men Type: BLOOD SPECIMENOrdering Facility: [facility] Address: [place] [address] Performed By: #### 2 4323-8, 2131-12, 2283-11 ####[facility]ORY[facility] [id number] [place] [address] [place] Sodium [Moles/Vol] 139 mmol/L Normal 136-144 [facility] Comment on above: Order Comment: Speci men Type: BLOOD SPECIMENOrdering Facility: [facility] Address: [address] [place] [address] Performed By: #### 2 432-8, 2131-12, 2283-11 ####[facility]ORY[facility] [id number] [place] [address] [place] Urea nitrogen [Mass/Vol] 10 mg/dL Normal 7-21 [facility] Comment on above: Order Comment: Speci men Type: BLOOD SPECIMENOrdering Facility: [facility] Address: [place] [address] Performed By: #### 2 432-8, 2131-12, 2283-11 ####[facility] [id number] [place] [address] [place] Folate SerPl-mCncon 11-28-19 Folate [Mass/Vol] 5.0 ng/mL Normal >4.7 [facility] Comment on above: Order Comment: Speci men Type: BLOOD SPECIMENOrdering Facility: [facility] Address: [place] [address] Performed By: #### 2 4323-8, 2131-12, 2283-11 ####[facility]CL[facility] [id number] [place] [address] [place] Haptoglob SerPl-mCncon 11-27 Haptoglobin [Mass/Vol] 492 mg/dL High 31-238 [facility] Comment on above: Order Comment: Speci men Type: BLOOD SPECIMENOrdering Facility: [facility] Address: [address] [place] [address] Performed By: #### 2 532-0, 4542-7 ####[facility] [id number] [place] [address] [place] LDH SerPl-cCncon 11-27-2022 LDH [Catalytic activity/Vol] 236 U/L High 135-214 [facility] Comment on above: Order Comment: Speci men Type: BLOOD SPECIMENOrdering Facility: [facility] Address: [address] [place] [address] Performed By: #### 2 532-0, 4542-7 ####[facility] [id number] [address] [place] Legionella Ag Ur Qlon 2022 Legionella sp Ag Ql (U) Negative Normal Negative [facility] Comment on above: Order Comment: Speci men Type: URINE SPECIMENOrdering Facility: [facility] Address: [address] [place] [address] Result Comment: Legi onella urinary antigen test is used as an aid in diagnosis of infection with Legionella pneumophila serogroup 1. It may be detected from a few days to several months after onset of signs and symptoms despite antibiotic therapy or disease resolution. A negative result cannot exclude Legionellosis. Clinical correlation is required. Performed By: #### 3 2781-7 ####[facility] [id number] [place] [address] [place] NURSING PROGon 11-27-2022 NURSING PROG HNO ID: [id number] Author: Sonal Tom RN Service: Nursing Author Type: Registered Nurse Type: Nursing Progress Note Filed: 11/27/2022 4:07 PM Note Text: Other: 0730 Pt. Resting with safety is being mainytained. 0915 Pharmacy was rounding with the doctor and nurse informed them that pt. reported to nite shift nurse that didn't know her med.s from home AND nite shift nurse reported that pt.'s spouse could not read the label on the bottle of the med.'s with pharmacist reporting will do med. reconcilation and check with pt.'s pharmacy on med.'s 1605 Message sent to Tiburcio ASAD related that a x1 time IV antibiotic levaquin was ordered yesterday at 1615 with no other antibiotic ordered AND pt. asking for something for cough. Normal [facility] Retics #on 11-27-2022 Reticulocytes (Bld) [#/Vol] 0.42452 10*3/uL Normal 0.018-0.100 [facility] Comment on above: Order Comment: Speci men Type: BLOOD SPECIMENOrdering Facility: [facility] Address: [address] [place] [address] Performed By: #### 6 00-7 #### [facility] CLIA [id number] [address] [place] [address] [place] Reticulocytes (Bld) [#/Vol]o n 11-27-2022 Reticulocytes/100 RBC (Bld) 1.7 % Normal 0.4-2.0 [facility] Comment on above: Order Comment: Speci men Type: BLOOD SPECIMENOrdering Facility: [facility] Address: [address] [place] [address] Performed By: #### 6 00-7 #### [facility] CLIA [id number] [address] [place] [address] [place] STAPH AUREUS PCRon S. aureus and MRSA panel FLEX+probe (Nose) Normal Negative [facility] Comment on above: Order Comment: Speci men Type: SWAB OF INTERNAL NOSEOrdering Facility: [facility] Address: [address] [place] [address] Result Comment: Nega tive for Staphylococcus aureus by PCR. Negative for MRSA by PCR Performed By: #### 6 00-7 #### [facility] CLIA [id number] [address] [place] [address] [place] STREPTOCOCCUS PNEUMONIAE AGo n 11-27-2022 STREPTOCOCCUS PNEUMONIAE AG STREP PNEUMO AG RESULT: Negative for Streptococcus pneumoniae antigen. Presumptive negative for pneumococcal pneumonia, suggesting no current or recent pneumococcal infection. Infection due to S.pneumoniae cannot be ruled out since the antigen present in the sample may be below the detection limit of the test. Normal [facility] Comment on above: Performed By: #### S PNAG ####[facility] [id number] [facility] [place] [address] [facility] Vit B12 SerPl-mCncon 023 Cobalamin (Vitamin B12) [Mass/Vol] 1523 pg/mL High 232-1245 [facility] Comment on above: Order Comment: Speci men Type: BLOOD SPECIMENOrdering Facility: [facility] Address: [address] [place] [address] Performed By: #### 2 4323-8, 213-9, 2283-11 ####[facility] [id number] [address] ALLIED HEALTHon 11-26-2022 ALLIED HEALTH HNO ID: [id number] Author: Lauren Washington RT(R) Service: Radiology Author Type: [employer] Sales Agent Type: Allied Health Filed: 11/26/2022 3:14 PM Note Text: Radiology Service Progress Note PATIENT NAME: Codi Blank DATE OF SERVICE: November 26, 2022 TIME: 3:14 PM PATIENT IDENTITY VERIFICATION COMPLETED USING TWO (2) IDENTIFIERS: Name and Date of confirmed by patient verbally. FALL SCREENING: Has the patient had 2 falls in the last year or 1 fall with injury or currently using an Ambulatory Assistive Device (Walker, Cane, Wheelchair, Crutches, etc.)? Emergency Room Patient: Screened in ED PATIENT GENDER DATA: Female. status: : No status: NO. PATIENT RELEVANT IMPLANT DATA REVIEWED: Not Applicable RADIOLOGY DEPARTMENT: General X-ray: Exam(s) Completed: Chest X-Ray PERIPHERAL IV DATA: Not applicable SIGNED BY: RT Kristina(R) November 26, 2022 3:14 PM [facility] Bacteria Bld Culton 11-27-19 23 Bacteria identified Cx Nom (Bld) CULTURE, BLOOD: No growth 5 days Normal [facility] Comment on above: Performed By: #### 6 00-7 #### [facility] CLIA [id number] [address] Bacteria identified Cx Nom (Bld) CULTURE, BLOOD: No growth 5 days Normal [facility] Comment on above: Performed By: #### 6 00-7 ####[facility] [id number] [place] [address] [place] CBC W Auto Differential pane l (Bld)on 11-26-2022 Basophils (Bld) [#/Vol] 0.08 10*3/uL Normal <0.11 [facility] Comment on above: Order Comment: Speci men Type: BLOOD SPECIMENOrdering Facility: [facility] Address: [address] [place] [address] Performed By: #### 6 00-7 #### [facility] CLIA [id number] [address] [place] [address] [place] Basophils/100 WBC (Bld) 0.6 % Normal [facility] Comment on above: Order Comment: Speci men Type: BLOOD SPECIMENOrdering Facility: [facility] Address: [address] [place] [address] Performed By: #### 6 -7 #### [facility] CLIA [id number] [address] [place] [address] [place] Differential cell count method Nom (Bld) Auto Normal [facility] Comment on above: Order Comment: Speci men Type: BLOOD SPECIMENOrdering Facility: [facility] Address: [address] [place] [address] Performed By: #### 6 00-7 #### [facility] CLIA [id number] [address] [place] [address] [place] Eosinophils (Bld) [#/Vol] 0.10 10*3/uL Normal <0.46 [facility] Comment on above: Order Comment: Speci men Type: BLOOD SPECIMENOrdering Facility: [facility] Address: [address] Performed By: #### 6 00-7 #### [facility] CLIA [id number] [address] [place] [address] [place] Eosinophils/100 WBC (Bld) 0.8 % Normal [facility] Comment on above: Order Comment: Speci men Type: BLOOD SPECIMENOrdering Facility: [facility] Address: [address] [place], [place] [address] Performed By: #### 6 -7 #### [facility] CLIA [id number] [address] [place] [address] [place] Erythrocyte distribution width (RBC) [Ratio] 17.6 % High 11.5-15.0 [facility] Comment on above: Order Comment: Speci men Type: BLOOD SPECIMENOrdering Facility: [facility] Address: [address] [place], [place] [address] Performed By: #### 6 -7 #### [facility] CLIA [id number] [address] [place] [address] [place] Hematocrit (Bld) [Volume fraction] 27.8 % Low 36.0-46.0 [facility] Comment on above: Order Comment: Speci men Type: BLOOD SPECIMENOrdering Facility: [facility] Address: [address] [place], [place] [address] Performed By: #### 6 -7 #### [facility] CLIA [id number] [address] [place] [address] [place] Hemoglobin (Bld) [Mass/Vol] 8.8 g/dL Low 11.5-15.5 [facility] Comment on above: Order Comment: Speci men Type: BLOOD SPECIMENOrdering Facility: [facility] Address: [address] [place], [place] [address] Performed By: #### 6 00-7 #### [facility] CLIA [id number] [address] [place] [address] [place] Immature granulocytes (Bld) [#/Vol] 0.18 10*3/uL High <0.10 [facility] Comment on above: Order Comment: Speci men Type: BLOOD SPECIMENOrdering Facility: [facility] Address: [address] [place] [address] Performed By: #### 6 00-7 #### [facility] CLIA [id number] [address] [place] [address] [place] Immature granulocytes/100 WBC (Bld) 1.4 % Normal [facility] Comment on above: Order Comment: Speci men Type: BLOOD SPECIMENOrdering Facility: [facility] Address: [address] [place] [address] Performed By: #### 6 00-7 #### [facility] CLIA [id number] [address] [place] [address] [place] Lymphocytes (Bld) [#/Vol] 2.14 10*3/uL Normal 1.00-4.00 [facility] Comment on above: Order Comment: Speci men Type: BLOOD SPECIMENOrdering Facility: [facility] Address: [address] [place] [address] Performed By: #### 6 00-7 #### [facility] CLIA [id number] [address] [place] [address] [place] Lymphocytes/100 WBC (Bld) 16.3 % Normal [facility] Comment on above: Order Comment: Speci men Type: BLOOD SPECIMENOrdering Facility: [facility] Address: [address] [place] [address] Performed By: #### 6 00-7 #### [facility] CLIA [id number] [address] [place] [address] [place] MCH (RBC) [Entitic mass] 24.9 pg Low 26.0-34.0 [facility] Comment on above: Order Comment: Speci men Type: BLOOD SPECIMENOrdering Facility: [facility] Address: [address] Performed By: #### 6 00-7 #### [facility] CLIA [id number] [address] [place] [address] STATES [facility] MCHC (RBC) [Mass/Vol] 31.7 g/dL Normal 30.5-36.0 [facility] Comment on above: Order Comment: Speci men Type: BLOOD SPECIMENOrdering Facility: [facility] Address: [address] [place], [place] [address] Performed By: #### 6 -7 #### [facility] CLIA [id number] [address] [place] [address] [place] MCV (RBC) [Entitic vol] 78.8 fL Low 80.0-100.0 [facility] Comment on above: Order Comment: Speci men Type: BLOOD SPECIMENOrdering Facility: [facility] Address: [address] [place], [place] [address] Performed By: #### 6 -7 #### [facility] CLIA [id number] [address] [place] [address] [place] Monocytes (Bld) [#/Vol] 0.74 10*3/uL Normal <0.87 [facility] Comment on above: Order Comment: Speci men Type: BLOOD SPECIMENOrdering Facility: [facility] Address: [address] [place], [place] [address] Performed By: #### 6 -7 #### [facility] CLIA [id number] [address] [place] Monocytes/100 WBC (Bld) 5.6 % Normal [facility] Comment on above: Order Comment: Speci men Type: BLOOD SPECIMENOrdering Facility: [facility] Address: [address] [place], [place] [address] Performed By: #### 6 00-7 #### [facility] CLIA [id number] [address] [place] [address] [place] Neutrophils (Bld) [#/Vol] 9.89 10*3/uL High 1.45-7.50 [facility] Comment on above: Order Comment: Speci men Type: BLOOD SPECIMENOrdering Facility: [facility] Address: [address] [place] [address] Performed By: #### 6 00-7 #### [facility] CLIA [id number] [address] [place] [address] [place] Neutrophils/100 WBC (Bld) 75.3 % Normal [facility] Comment on above: Order Comment: Speci men Type: BLOOD SPECIMENOrdering Facility: [facility] Address: [address] [place] [address] Performed By: #### 6 00-7 #### [facility] CLIA [id number] [address] [place] [address] [place] Nucleated RBC (Bld) [#/Vol] 10*3/uL Normal <0.01 [facility] Comment on above: Order Comment: Speci men Type: BLOOD SPECIMENOrdering Facility: [facility] Address: [address] [place], [place] [address] Performed By: #### 6 00-7 #### [facility] CLIA [id number] [address] [place] [address] [place] Nucleated RBC/100 WBC (Bld) [Ratio] 0.0 /100 WBC Normal [facility] Comment on above: Order Comment: Speci men Type: BLOOD SPECIMENOrdering Facility: [facility] Address: [address] [place], [place] [address] Performed By: #### 6 00-7 #### [facility] CLIA [id number] [address] [place] [address] [place] Platelet mean volume (Bld) [Entitic vol] 9.5 fL Normal 9.0-12.7 [facility] Comment on above: Order Comment: Speci men Type: BLOOD SPECIMENOrdering Facility: [facility] Address: [address] Performed By: #### 6 00-7 #### [facility] CLIA [id number] [address] [place] [address] [place] Platelets (Bld) [#/Vol] 525 10*3/uL High 150-400 [facility] Comment on above: Order Comment: Speci men Type: BLOOD SPECIMENOrdering Facility: [facility] Address: [address] [place], [place] [address] Performed By: #### 6 00-7 #### [facility] CLIA [id number] [address] [place] [address] [place] RBC (Bld) [#/Vol] 3.53 10*6/uL Low 3.90-5.20 [facility] Comment on above: Order Comment: Speci men Type: BLOOD SPECIMENOrdering Facility: [facility] Address: [address] [place], [place] [address] Performed By: #### 6 00-7 #### [facility] CLIA [id number] [address] [place] [address] [place] WBC (Bld) [#/Vol] 13.13 10*3/uL High 3.70-11.00 [facility] Comment on above: Order Comment: Speci men Type: BLOOD SPECIMENOrdering Facility: [facility] Address: [address] [place] [address] Performed By: #### 6 00-7 #### [facility] CLIA [id number] [address] [place] [address] [place] Comprehensive metabolic 2000 panelon 11-26-2022 Albumin [Mass/Vol] 3.1 g/dL Low 3.9-4.9 [facility] Comment on above: Order Comment: Speci men Type: BLOOD SPECIMENOrdering Facility: [facility] Address: [address] [place], [place] [address] Performed By: #### 5 0190-8, 98995-9, 2276-4, 59906-6 ####[facility] [id number] [place] [address] [place] ALP [Catalytic activity/Vol] 343 U/L High 34-123 [facility] Comment on above: Order Comment: Speci men Type: BLOOD SPECIMENOrdering Facility: [facility] Address: [address] [place] [address] Performed By: #### 5 0190-8, 53072-2, 2276-4, 55523-1 ####[facility] [id number] [place] [address] [place] ALT [Catalytic activity/Vol] 36 U/L Normal 7-38 [facility] Comment on above: Order Comment: Speci men Type: BLOOD SPECIMENOrdering Facility: [facility] Address: [address] [place] [address] Performed By: #### 5 0190-8, 13986-6, 2276-4, 76299-2 ####[facility] [id number] [place] [address] [place] Anion gap [Moles/Vol] 12 mmol/L Normal 9-18 [facility] Comment on above: Order Comment: Speci men Type: BLOOD SPECIMENOrdering Facility: [facility] Address: [address] [place] [address] Performed By: #### 5 0190-8, 00986-0, 2276-4, 07704-8 ####[facility] [id number] [place] [address] [place] AST [Catalytic activity/Vol] 27 U/L Normal 13-35 [facility] Comment on above: Order Comment: Speci men Type: BLOOD SPECIMENOrdering Facility: [facility] Address: [address] [place] [address] Performed By: #### 5 0190-8, 95964-5, 2276-4, 19498-7 ####[facility] [id number] [place] [address] [place] Bilirubin [Mass/Vol] mg/dL Low 0.2-1.3 [facility] Comment on above: Order Comment: Speci men Type: BLOOD SPECIMENOrdering Facility: [facility] Address: [address] [place] [address] Performed By: #### 5 0190-8, 08570-4, 2276-4, 66437-9 ####[facility]ORYCLIA [id number] [place] [address] [place] Calcium [Mass/Vol] 8.6 mg/dL Normal 8.5-10.2 [facility] Comment on above: Order Comment: Speci men Type: BLOOD SPECIMENOrdering Facility: [facility] Address: [address] [place] [address] Performed By: #### 5 0190-8, 63670-4, 2276-4, 90976-9 ####[facility] [id number] [place] [address] [place] Chloride [Moles/Vol] 104 mmol/L Normal 97-105 [facility] Comment on above: Order Comment: Speci men Type: BLOOD SPECIMENOrdering Facility: [facility] Address: [address] [place] [address] Performed By: #### 5 0190-8, 46893-2, 6-4, 85001-9 ####[facility]ORYCLIA [id number] [place] [address] [place] CO2 [Moles/Vol] 21 mmol/L Low 22-30 [facility] Comment on above: Order Comment: Speci men Type: BLOOD SPECIMENOrdering Facility: [facility] Address: [address] [place] [address] Performed By: #### 5 0190-8, 02435-1, 2276-4, 15982-1 ####[facility] [id number] [place] [address] [place] Creatinine [Mass/Vol] 0.90 mg/dL Normal 0.58-0.96 [facility] Comment on above: Order Comment: Speci men Type: BLOOD SPECIMENOrdering Facility: [facility] Address: [address] [place] [address] Performed By: #### 5 0190-8, 01481-1, 2276-4, 53509-4 ####[facility] [id number] [address] [place] ESTIMATED GLOMERULAR FILTRATION RATE 70 mL/min/1.73m??? Normal >=60 [facility] Comment on above: Order Comment: Melissa rouse Type: BLOOD SPECIMENOrdering Facility: [facility] Address: [address] [place] [address] Result Comment: Niurka mated Glomerular Filtration Rate (eGFR) is calculated using the 2020 CKD-EPI creatinine equation. This equation utilizes serum creatinine, sex, and age as parameters. The creatinine assay has traceable calibration to isotope dilution-mass spectrometry. Refer to KDIGO guidelines for clinical interpretation. In patients with unstable renal function, e.g. those with acute kidney injury, the eGFR may not accurately reflect actual GFR. Performed By: #### 5 0190-8, 48558-2, 2276-4, 37916-2 ####[facility] [id number] [place] [address] [place] Glucose [Mass/Vol] 140 mg/dL High 74-99 [facility] Comment on above: Order Comment: Melissa rouse Type: BLOOD SPECIMENOrdering Facility: [facility] Address: [address] [place] [address] Result Comment: The [place] Diabetes Association (ADA) provides guidance for cutoff values for fasting glucose and random glucose. The ADA defines fasting as no caloric intake for at least 8 hours. Fasting plasma glucose results between 100 to 125 mg/dL indicate increased risk for diabetes (prediabetes). Fasting plasma glucose results greater than or equal to 126 mg/dL meet the criteria for diagnosis of diabetes. In the absence of unequivocal hyperglycemia, results should be confirmed by repeat testing. In a patient with classic symptoms of hyperglycemia or hyperglycemic crisis, random plasma glucose results greater than or equal to 200 mg/dL meet the criteria for diagnosis of diabetes. Reference: Standards of Medical Care in Diabetes 2016, [place] [employer] Association. Diabetes Care. 2016.39(Suppl 1). Performed By: #### 5 0190-8, 30831-7, 2276-4, 06424-8 ####[facility]ORYCLIA [id number] [place] [address] [place] Potassium [Moles/Vol] 3.6 mmol/L Low 3.7-5.1 [facility] Comment on above: Order Comment: Speci men Type: BLOOD SPECIMENOrdering Facility: [facility] Address: [address] [place] [address] Performed By: #### 5 0190-8, 16382-2, 2276-4, 84082-4 ####[facility]ORYCLIA [id number] [place] [address] [place] Protein [Mass/Vol] 7.0 g/dL Normal 6.3-8.0 [facility] Comment on above: Order Comment: Speci men Type: BLOOD SPECIMENOrdering Facility: [facility] Address: [address] [place] [address] Performed By: #### 5 0190-8, 77726-3, 6-4, 33634-5 ####[facility]IA [id number] [address] [place] Sodium [Moles/Vol] 137 mmol/L Normal 136-144 [facility] Comment on above: Order Comment: Speci men Type: BLOOD SPECIMENOrdering Facility: [facility] Address: [address] [place] [address] Performed By: #### 5 0190-8, 79405-0, 2276-4, 77990-9 ####[facility]ORYCLIA [id number] [place] [id number] [place] Urea nitrogen [Mass/Vol] 15 mg/dL Normal 7-21 [facility] Comment on above: Order Comment: Speci men Type: BLOOD SPECIMENOrdering Facility: [facility] Address: [address] [place] [address] Performed By: #### 5 0190-8, 86015-6, 2276-4, 18467-1 ####[facility]ORYCLIA [id number] [place] [id number] [place] ECG COMPLETEon 11-26-2022 ECG COMPLETE Ventricular Rate : 9 5 BPM Atrial Rate : 95 BPM P-R Interval : 156 ms QRS Duration : 106 ms Q-T Interval : 422 ms QTC Calculation(Bazett) : 530 ms Calculated P [place] : 32 degrees Calculated R [place] : 51 degrees Calculated T [place] : 77 degrees NORMAL SINUS RHYTHM LOW VOLTAGE QRS CANNOT RULE OUT INFERIOR INFARCT , AGE UNDETERMINED ABNORMAL ECG no STEMI 1654 Confirmed by ERROL MAR MD ([id number]), script editor MESFIN BAH ([id number]) on 12/04/2022 6:43:12 AM NAME : CODI BLANK PID : [id number] : 1955 Gender : Female Race : ORD : [id number] Procedure Date : Nov 26 2022 16:45:49 Edit Date : Dec 04 2022 06:43:16 Diagnosis: NORMAL SINUS RHYTHM LOW VOLTAGE QRS CANNOT RULE OUT INFERIOR INFARCT , AGE UNDETERMINED ABNORMAL ECG no STEMI 1654 Confirmed by ERROL MAR MD ([id number]), script editor MESFIN BAH ([id number]) on 12/04/2022 6:43:12 AM Test Reason : Arrhythmia Location : 1 : ER ED Overread By : ERROL MAR MD Edited By : MESFIN BAH Referred By : , Acquired by : GATO [facility] ED NOTEon 11-26-2022 ED NOTE HNO ID: [id number] Author: Joaquim Collins RN Service: Nursing Author Type: Registered Nurse Type: ED Notes Filed: 11/26/2022 7:33 PM Note Text: Report to DEWAYNE Zuñiga on [address]. No questions at this time. [facility] ED PROV NOTEon 11-26-2022 ED PROV NOTE HNO ID: [id number] Author: Errol Mar MD Service: ? Author Type: Physician Type: ED Provider Notes Filed: 11/26/2022 11:54 PM Note Text: ED Provider Note Patient Name: Codi Blank : 1955 SERVICE DATE: 11/26/22 History Patient presents with: Flu Like Symptoms Hallucinations Patient presents with 2 days of productive cough of green sputum, myalgias, purulent rhinorrhea, shortness of breath, and general malaise. Patient states she has also had diarrhea. She is asthmatic. She is on oxygen at nighttime 4 L but not during the day normally. But not during the day normally. PAST MEDICAL HISTORY Diagnosis Date Arthritic-like pain Arthritis Asthma CAD (coronary artery disease) Cellulitis Chronic multifocal osteomyelitis (HCC) RIGHT ANKLE Chronic pain ON MORPHINE PUMP COPD (chronic obstructive pulmonary disease) (HCC) CVA, old, alterations of sensations balance and memory Depression Dyslipidemia Expressive aphasia GERD (gastroesophageal reflux disease) HTN (hypertension) Hx of BKA, right (HCC) Hypothyroid Memory loss TX (myocardial infarction) (HCC) 2010 Osteoporosis Sleep apnea Stroke (HCC) TIA (transient ischemic attack) 2004 X3 PAST SURGICAL HISTORY Procedure Laterality Date AMPUTATION OF LOWER LEG Right 09/30/2017 R BKA ANESTHESIA KNEE, ARTHROSCOPIC Bilateral 1989' ANKLE RIGHT Right 10/04/2016 ORIF BACK SURGERY HX times three 2007 BUNIONECTOMY, [place]-TYPE with toe surgery CARPAL TUNNEL both hands twice HYSTERECTOMY HX 1969' IMPLANT INFUSION PUMP - PROGRAMMABLE 2008 IR VASCULAR ACCESS TEAM PICC INSERTION RADIO 10/08/2017 OATS - OPEN/UP TO 3 PLUGS just one plug PAST SURGICAL HISTORY OF Right 2014 GANGLION CYST PAST SURGICAL HISTORY OF IANDD RIGHT ANKLE SURGICAL WOUND S STIMULATOR NERVE 2007 SINUS SURGERY PROCEDURE STENT - CORONARY 2010 THYROIDECTOMY TOTAL/COMPLETE 1999 FAMILY HISTORY Problem Relation Age of Onset Asthma Father Coronary Artery Disease Father COPD Mother Diabetes Daughter Social History Tobacco Use Smoking status: Every Day Packs/day: 0.50 Years: 20.00 Total pack years: 10.00 Types: Cigarettes Smokeless tobacco: Never Substance and Sexual Activity Alcohol use: No Drug use: No Sexual activity: Not on file ALLERGIES Allergen Reactions Adhesive Tape (Madisyn* REDNESS Biaxin [Clarithromy* Hives, Itching Patient states she has previously tolerated a Z-pack, but states they have to do it twice for it to work Ceclor [Cefaclor] Hives, Itching Doxycycline Hives, Itching Penicillins Hives, Itching Sulfa Drugs [Sulfa * Hives, Itching Review of Systems Constitutional: Pertinent positives and negatives as per HPI. Physical Exam Vitals BP Pulse Temp Temp src Resp SpO2 Weight Height 11/26/22 1425 11/26/22 1425 11/26/22 1425 11/26/22 1425 11/26/22 1425 11/26/22 1425 11/26/22 1425 11/26/222017 (!) 76/51 (!) 127 36.9 ?C (98.5 ?F) Oral 22 (!) 94 % 72.1 kg (159 lb) 1.473 m (4' 10) Physical Exam Vitals and nursing note reviewed. Exam conducted with a assembly machine operator present. Constitutional: General: She is in acute distress. Appearance: Normal appearance. She is ill-appearing. HENT: Head: Normocephalic and atraumatic. Mouth/Throat: Mouth: Mucous membranes are dry. Eyes: Extraocular Movements: Extraocular movements intact. Conjunctiva/sclera: Conjunctivae normal. Pupils: Pupils are equal, round, and reactive to light. Cardiovascular: Rate and Rhythm: Regular rhythm. Tachycardia present. Pulses: Normal pulses. Heart sounds: No murmur heard. Pulmonary: Effort: Tachypnea and respiratory distress present. Breath sounds: Examination of the right-middle field reveals rhonchi. Examination of the right-lower field reveals rhonchi. Rhonchi present. No wheezing or rales. Abdominal: General: Abdomen is flat. Bowel sounds are normal. Palpations: Abdomen is soft. Tenderness: There is no abdominal tenderness. Musculoskeletal: General: No tenderness. Normal range of motion. Cervical back: Normal range of motion and neck supple. No muscular tenderness. Left lower leg: No edema. Right Lower Extremity: Right leg is amputated below knee. Skin: General: Skin is warm and dry. Findings: No rash. Neurological: General: No focal deficit present. Mental Status: She is alert and oriented to person, place, and time. Mental status is at baseline. Psychiatric: Mood and Affect: Mood normal. Behavior: Behavior normal. Does patient meet sepsis criteria?: Yes Does patient meet criteria for Severe Sepsis?: No Does patient meet criteria for Septic Shock?: No Diagnostic Testing ED Labs Ordered and Reviewed VENOUS BLOOD GASES - Abnormal; Notable for the following components: Result Value Ref Range pCO2, Venous 39 (*) 42 - 55 mmHg pO2, Venous <31 (*) 35 - 45 mmHg Oxyhemoglobin, Venous 47 (*) 60 - 85 % (more content not included)... Normal [facility] FLUABV+SARS-CoV-2+RSV Pnl Re sp FLEX+probeon 11-26-2022 FLUABV+SARS-CoV-2+RSV Pnl Resp FLEX+probe COVID 19 RESULT: Not detected The method used is RT-PCR or an equivalent NAAT method. Reference Range(the expected result in uninfected individuals): Not detected INFLUENZA A PCR: Not detected INFLUENZA B PCR: Not detected RSV PCR: Not detected Normal [facility] Comment on above: Performed By: #### 6 00-7 #### [facility] CLIA [id number] [address] [place] [address] [place] Ferritin SerPl-mCncon 2022 Ferritin [Mass/Vol] 120.7 ng/mL Normal 14.7-205.1 [facility] Comment on above: Order Comment: Melissa rouse Type: BLOOD SPECIMENOrdering Facility: [facility] Address: [address] [place] [address] Performed By: #### 5 0190-8, 56392-0, 2276-4, 65098-7 ####[facility] [id number] [address] [place] Gas and Carbon monoxide pane l (BldV)on 11-26-2022 BASE DEFICIT, VENOUS -1 mmol/L Normal -2-0 [facility] Comment on above: Order Comment: Melissa rouse Type: VENOUS BLOOD SPECIMENOrdering Facility: [facility] Address: [address] [place] [address] Performed By: #### 6 00-7 #### [facility] CLIA [id number] [address] [place] [address] [place] Carboxyhemoglobin (BldV) [Mass fraction] 2.8 % High 0.0-2.0 [facility] Comment on above: Order Comment: Melissa rouse Type: VENOUS BLOOD SPECIMENOrdering Facility: [facility] Address: [address] [place] [address] Result Comment: Carb oxyhemoglobin Reference Range for Smokers: 2.0-8.0% Performed By: #### 6 00-7 #### [facility] CLIA [id number] [address] [place] [address] [place] CO2 (BldV) [Partial pressure] 39 mm[Hg] Low 42-55 [facility] Comment on above: Order Comment: Speci men Type: VENOUS BLOOD SPECIMENOrdering Facility: [facility] Address: [address] [place] [address] Performed By: #### 6 00-7 #### [facility] CLIA [id number] [address] [place] [address] [place] CO2 adjusted to patient's actual temperature (BldV) [Partial pressure] Normal [facility] Comment on above: Order Comment: Speci men Type: VENOUS BLOOD SPECIMENOrdering Facility: [facility] Address: [address] [place] [address] Performed By: #### 6 00-7 #### [facility] CLIA [id number] [address] [place] [address] [place] HCO3 (Bld) [Moles/Vol] 24 mmol/L Normal 24-28 [facility] Comment on above: Order Comment: Speci men Type: VENOUS BLOOD SPECIMENOrdering Facility: [facility] Address: [address] [place], [place] [address] Performed By: #### 6 00-7 #### [facility] CLIA [id number] [address] [place] [address] [place] Hemoglobin (Bld) [Mass/Vol] 15.6 g/dL High 11.5-15.5 [facility] Comment on above: Order Comment: Speci men Type: VENOUS BLOOD SPECIMENOrdering Facility: [facility] Address: [address] [place], [place] [address] Performed By: #### 6 00-7 #### [facility] CLIA [id number] [address] [place] [address] [place] Lactate [Moles/Vol] 1.3 mmol/L Normal 0.5-2.2 [facility] Comment on above: Order Comment: Speci men Type: VENOUS BLOOD SPECIMENOrdering Facility: [facility] Address: [address] [place] [address] Performed By: #### 6 -7 #### [facility] CLIA [id number] [address] [place] Methemoglobin (Bld) [Mass fraction] 1.9 % High 0.0-1.5 [facility] Comment on above: Order Comment: Speci men Type: VENOUS BLOOD SPECIMENOrdering Facility: [facility] Address: [address] Performed By: #### 6 -7 #### [facility] CLIA [id number] [address] [place] O2 THERAPY RA=Room Air Normal [facility] Comment on above: Order Comment: Speci men Type: VENOUS BLOOD SPECIMENOrdering Facility: [facility] Address: [address] Performed By: #### 6 -7 #### [facility] CLIA [id number] [address] [place] [address] [place] Oxygen (BldV) [Partial pressure] mm[Hg] Low 35-45 [facility] Comment on above: Order Comment: Speci men Type: VENOUS BLOOD SPECIMENOrdering Facility: [facility] Address: [address] Performed By: #### 6 -7 #### [facility] CLIA [id number] [address] [place] Oxygen adjusted to patient's actual temperature (BldV) [Partial pressure] Normal [facility] Comment on above: Order Comment: Speci men Type: VENOUS BLOOD SPECIMENOrdering Facility: [facility] Address: [address] [place] [address] Performed By: #### 6 00-7 #### [facility] CLIA [id number] [address] [place] [address] [place] Oxyhemoglobin (BldV) [Mass fraction] 47 % Low 60-85 [facility] Comment on above: Order Comment: Speci men Type: VENOUS BLOOD SPECIMENOrdering Facility: [facility] Address: [address] [place], [place] [address] Performed By: #### 6 00-7 #### [facility] CLIA [id number] [address] [place] [address] [place] pH (BldV) 7.39 [pH] Normal 7.32-7.42 [facility] Comment on above: Order Comment: Speci men Type: VENOUS BLOOD SPECIMENOrdering Facility: [facility] Address: [address] [place] [address] Performed By: #### 6 00-7 #### [facility] CLIA [id number] [address] [place] [address] pH adjusted to patient's actual temperature (BldV) Normal [facility] Comment on above: Order Comment: Speci men Type: VENOUS BLOOD SPECIMENOrdering Facility: [facility] Address: [address] [place] [address] Performed By: #### 6 00-7 #### [facility] CLIA [id number] [address] [place] [address] [place] Potassium [Moles/Vol] 3.4 mmol/L Low 3.5-5.0 [facility] Comment on above: Order Comment: Speci men Type: VENOUS BLOOD SPECIMENOrdering Facility: [facility] Address: [address] [place], [place] [address] Performed By: #### 6 00-7 #### [facility] CLIA [id number] [address] [place] [address] [place] HISTORY PHYSICALon HISTORY PHYSICAL HNO ID: [id number] Author: Paula Moss MD Service: General Internal Medicine Author Type: Physician Type: HANDP Filed: 11/28/2022 11:12 AM Note Text: [facility] STAFF PHYSICIAN NOTE OF PERSONAL INVOLVEMENT IN CARE I have reviewed the history and physical examination obtained and documented by the nurse practitioner and I personally participated in the patterson components. I have discussed the case and management of the patient's care. The following comments revise or confirm relevant patterson components of their note. IMPRESSION: This is a 67 year old female who presents with cough and SOB from pneumonia. PLAN: Started on antibiotics, follow cultures. Plan of care discussed with Provider, RN, Patient CARE COORDINATION: The majority of the visit was spent counseling and/or coordinating care for the patient. Qvkf-cp-qvxe time was 35 minutes SIGNATURE: Paula Moss MD DATE of SERVICE: November 27, 2022 TIME of SERVICE: 2:21 PM History and Physical Examination SERVICE DATE: 11/26/2022 SERVICE TIME: 1829 PCP: Errol Michel DO PRIMARY ATTENDING: Errol Chan MD Subjective CHIEF COMPLAINT: Flu Like Symptoms and Hallucinations HPI: Patient is a 67-year-old female presenting from the ER for evaluation of worsening cough and experiencing hallucinations. Patient with a PMH of CVA, CAD, hypothyroid, s/p right BKA, HTN, GERD, depression, COPD, and asthma. Patient reports being treated for thrush which she is just finishing up treatment for over the past week. Since being treated she reports developing diarrhea having 5-6 episodes per day over the past week. She also reports associated productive cough with green sputum and feeling shaky. She also reports experiencing hallucinations and speaking to family members who are not present. She states she also experienced similar hallucinations a few months ago when she was hospitalized and taking steroids. She denies current use of steroids. She currently denies having hallucinations. She denies fever, chills, chest pain, shortness of breath, abdominal pain, nausea, vomiting, or urinary symptoms. She reports use of oxygen at home wearing 4 liters at baseline. ED workup: Labs and imaging in ER remarkable for potassium-3.6, CO2-21, glucose-140, albumin-3.1, total bili-<0.2, Alk phos-343. VBG showing pCO2-39, pO2-<31. WBC-13.13, Hgb-8.8, Hct-27.8, platelet count-525, Abs neut-9.89. EKG showing normal sinus rhythm. CXR showing collapse of the right lower lobe is suspected. Administered in ER include IV NS 0.9% bolus x 1 liter, DuoNeb, and IV Levaquin 750 mg. History provided by: patient and EMR FUNCTIONAL STATUS: Limited most or all of the time (uses scooter, mobility device) PAST MEDICAL HISTORY Diagnosis Date Arthritic-like pain Arthritis Asthma CAD (coronary artery disease) Cellulitis Chronic multifocal osteomyelitis (HCC) RIGHT ANKLE Chronic pain ON MORPHINE PUMP COPD (chronic obstructive pulmonary disease) (HCC) CVA, old, alterations of sensations balance and memory Depression Dyslipidemia Expressive aphasia GERD (gastroesophageal reflux disease) HTN (hypertension) Hx of BKA, right (HCC) Hypothyroid Memory loss TX (myocardial infarction) (HCC) 2010 Osteoporosis Sleep apnea Stroke (HCC) TIA (transient ischemic attack) 2004 X3 PAST SURGICAL HISTORY Procedure Laterality Date AMPUTATION OF LOWER LEG Right 09/30/2017 R BKA ANESTHESIA KNEE, ARTHROSCOPIC Bilateral 1989' ANKLE RIGHT Right 10/04/2016 ORIF BACK SURGERY HX times three 2007 BUNIONECTOMY, LAPID[place]-TYPE with toe surgery CARPAL TUNNEL both hands twice HYSTERECTOMY HX 1969' IMPLANT INFUSION PUMP - PROGRAMMABLE 2009 IR VASCULAR ACCESS TEAM PICC INSERTION RADIO 10/08/2017 OATS - OPEN/UP TO 3 PLUGS just one plug PAST SURGICAL HISTORY OF Right 2014 GANGLION CYST PAST SURGICAL HISTORY OF IANDD RIGHT ANKLE SURGICAL WOUND S STIMULATOR NERVE 2007 SINUS SURGERY PROCEDURE STENT - CORONARY 2011 THYROIDECTOMY TOTAL/COMPLETE 1999 FAMILY HISTORY Problem Relation Age of Onset Asthma Father Coronary Artery Disease Father COPD Mother Diabetes Daughter Social History Tobacco Use Smoking status: Every Day Packs/day: 0.50 Years: 20.00 Total pack years: 10.00 Types: Cigarettes Smokeless tobacco: Never Substance Use Topics Alcohol use: No Drug use: No I have confirmed and edited as necessary, the PFSH obtained by others. ALLERGIES Allergen Reactions Adhesive Tape (Madisyn* REDNESS Biaxin [Clarithromy* Hives, Itching Patient states she has previously tolerated a Z-pack, but states they have to do it twice for it to work Ceclor [Cefaclor] Hives, Itching Doxycycline Hives, Itching Penicillins Hives, Itching Sulfa Drugs [Sulfa * Hives, Itching Prior to Admission Medications Prescriptions Last Dose Informant Patient Reported? Taking? DULoxetine (CYMBALTA) 30 mg capsule No No (more content not included)... Normal [facility] Iron and Iron binding capaci ty panelon 11-26-2022 Iron [Mass/Vol] 33 ug/dL Low 41-186 [facility] Comment on above: Order Comment: Speci padma Type: BLOOD SPECIMENOrdering Facility: [facility] Address: [address] [place] [address] Performed By: #### 5 0190-8, 80004-1, 2276-4, 42383-0 ####[facility] [id number] [address] Iron binding capacity [Mass/Vol] 228 ug/dL Low 232-386 [facility] Comment on above: Order Comment: Speci padma Type: BLOOD SPECIMENOrdering Facility: [facility] Address: [address] [place] [address] Performed By: #### 5 0190-8, 89238-1, 2276-4, 42758-5 ####[facility] [id number] [address] STATES OF [facility] Iron/TIBC [Molar ratio] 14.5 % Low 15.0-57.0 [facility] Comment on above: Order Comment: Speci men Type: BLOOD SPECIMENOrdering Facility: [facility] Address: [address] [place] [address] Performed By: #### 5 0190-8, 68095-2, 6-4, 52356-7 ####[facility] [id number] [address] Procalcitonin SerPl-mCncon 0 11-26-2022 Procalcitonin [Mass/Vol] 0.47 ng/mL High <0.09 [facility] Comment on above: Order Comment: Speci men Type: BLOOD SPECIMENOrdering Facility: [facility] Address: [address] [place] [address] Result Comment: For a guided interpretation of test results, please visit the Change in Procalcitonin Calculator, [email or web address]. Performed By: #### 5 0190-8, 82214-9, 2276-4, 70608-8 ####[facility]IA [id number] [place] [address] [place] US ABD RIGHT UPPER QUADRANTo n 11-26-2022 US ABD RIGHT UPPER QUADRANT * * *Final Report* * * DATE OF EXAM: Nov 26 2022 9:06PM [facility] 1032 - US ABD RIGHT UPPER QUADRANT / PROCEDURE REASON: Abn liver function tests (LFTs) * * * * Physician Interpretation * * * * EXAMINATION: RIGHT UPPER QUADRANT ULTRASOUND CLINICAL HISTORY: Abnormal liver function tests TECHNIQUE: Sonography of the right upper quadrant was performed. Images were obtained and stored in a permanent archive. MQ: URUQ_2 COMPARISON: None. RESULT: Pancreas: Normal sonographic appearance. Portions obscured: tail Liver: Echotexture: Normal, homogeneous. Echogenicity: Normal Surface contour: Smooth Lesions: None. Biliary: No intrahepatic biliary duct dilation. CBD: 0.5 cm at the hilum. Gallbladder: Prior cholecystectomy Right Kidney: No hydronephrosis. 8.5 cm in craniocaudad length. Left kidney: No hydronephrosis. 9.7 cm in craniocaudad length. Ascites: None. Spleen: The craniocaudal length of the spleen is 8.5 cm, normal. There are no splenic lesions. IMPRESSION: 1. Status post cholecystectomy. 2. Otherwise normal sonographic appearance of the upper abdomen. Tailor Fitter: SKYLER Transcribe Date/Time: Nov 26 2022 9:14P Dictated by : ALISHA SALGADO MD This examination was interpreted and the report reviewed and electronically signed by: ALISHA SALGADO MD on Nov 26 2022 9:17PM EST [id number] Normal [facility] US ABD SPLEEN -NBon 11-27-19 US ABD SPLEEN -NB * * *Final Report* * * DATE OF EXAM: Nov 26 2022 9:06PM [facility] 1232 - US ABD SPLEEN -NB / PROCEDURE REASON: Abn liver function tests (LFTs) * * * * Physician Interpretation * * * * EXAMINATION: RIGHT UPPER QUADRANT ULTRASOUND CLINICAL HISTORY: Abnormal liver function tests TECHNIQUE: Sonography of the right upper quadrant was performed. Images were obtained and stored in a permanent archive. MQ: URUQ_2 COMPARISON: None. RESULT: Pancreas: Normal sonographic appearance. Portions obscured: tail Liver: Echotexture: Normal, homogeneous. Echogenicity: Normal Surface contour: Smooth Lesions: None. Biliary: No intrahepatic biliary duct dilation. CBD: 0.5 cm at the hilum. Gallbladder: Prior cholecystectomy Right Kidney: No hydronephrosis. 8.5 cm in craniocaudad length. Left kidney: No hydronephrosis. 9.7 cm in craniocaudad length. Ascites: None. Spleen: The craniocaudal length of the spleen is 8.5 cm, normal. There are no splenic lesions. IMPRESSION: 1. Status post cholecystectomy. 2. Otherwise normal sonographic appearance of the upper abdomen. Tailor Fitter: PSCB Transcribe Date/Time: Nov 26 2022 9:14P Dictated by : ALISHA SALGADO MD This examination was interpreted and the report reviewed and electronically signed by: ALISHA SALGADO MD on Nov 26 2022 9:17PM EST [id number] Normal [facility] Urinalysis complete panel (U )on 11-26-2022 Bacteria LM.HPF (Urine sed) [#/Area] Many Abnormal None Seen [facility] Comment on above: Order Comment: Speci men Type: URINE SPECIMEN [facility] Address: [address] [place] [address] Performed By: #### 2 4356-8 #### [facility] CLIA [id number] [address] [place] [facility] CLIA [id number] [address] [place] [address] [place] Bilirubin Ql (U) Negative Normal Negative [facility] Comment on above: Order Comment: Speci men Type: URINE SPECIMEN [facility] Address: [address] [place] [address] Performed By: #### 2 4356-8 #### [facility] CLIA [id number] [address] [place] [address] [place] [facility] CLIA [id number] [address] [place] [address] [place] Clarity (Unsp spec) Clear Normal Clear [facility] Comment on above: Order Comment: Speci men Type: URINE SPECIMEN [facility] Address: [address] Performed By: #### 2 4356-8 #### [facility] CLIA [id number] [address] [place], [place] [address] [place] [address] [place] [facility] CLIA [id number] [address] [place] Color (U) Yellow Normal Yellow [facility] Comment on above: Order Comment: Speci men Type: URINE SPECIMEN [facility] Address: [address] [place], [place] [address] Performed By: #### 2 4356-8 #### [facility] CLIA [id number] [address] [place] [facility] CLIA [id number] [address] [place] Epithelial cells LM.HPF (Urine sed) [#/Area] Few Normal [facility] Comment on above: Order Comment: Speci men Type: URINE SPECIMEN [facility] Address: [address] [place], [place] [address] Performed By: #### 2 4356-8 #### [facility] CLIA [id number] [address] [place] [address] [place] [facility] CLIA [id number] [address] [place] [address] [place] Glucose Test strip (U) [Mass/Vol] Negative Normal Negative [facility] Comment on above: Order Comment: Speci men Type: URINE SPECIMEN [facility] Address: [address] [place], [place] [address] Performed By: #### 2 4356-8 #### [facility] CLIA [id number] [address] [place] [address] [place] [facility] CLIA [id number] [address] [place] [address] [place] Hemoglobin Ql (U) Negative Normal Negative, Trace [facility] Comment on above: Order Comment: Speci men Type: URINE SPECIMEN [facility] Address: [address] [place] [address] Performed By: #### 2 4356-8 #### [facility] CLIA [id number] [address] [place] [address] [place] [facility] CLIA [id number] [address] [place] [address] [place] Ketones Ql (U) Negative Normal Negative [facility] Comment on above: Order Comment: Speci men Type: URINE SPECIMEN [facility] Address: [address] [place] [address] Performed By: #### 2 4356-8 #### [facility] CLIA [id number] [address] [place] [address] [place] [facility] CLIA [id number] [address] [place] [address] [place] Leukocyte esterase Test strip Ql (U) 1+ Abnormal Negative [facility] Comment on above: Order Comment: Speci men Type: URINE SPECIMEN [facility] Address: [address] [place] [address] Performed By: #### 2 4356-8 #### [facility] CLIA [id number] [address] [place] [address] [place] [facility] CLIA [id number] [address] [place] [address] [place] Nitrite Ql (U) Positive Abnormal Negative [facility] Comment on above: Order Comment: Speci men Type: URINE SPECIMEN [facility] Address: [address] [place], [place] [address] Performed By: #### 2 4356-8 #### [facility] CLIA [id number] [address] [place] [address] [place] [facility] CLIA [id number] [address] [place] [address] [place] pH (U) 6.0 [pH] Normal 5.0-8.0 [facility] Comment on above: Order Comment: Speci men Type: URINE SPECIMEN [facility] Address: [address] [place] [address] Performed By: #### 2 4356-8 #### [facility] CLIA [id number] [address] [place] [address] [place] [facility] CLIA [id number] [address] [place] [address] [place] Protein (U) [Mass/Vol] Negative Normal Negative [facility] Comment on above: Order Comment: Speci men Type: URINE SPECIMEN [facility] Address: [address] [place] [address] Performed By: #### 2 4356-8 #### [facility] CLIA [id number] [address] [place] [address] [place] [facility] CLIA [id number] [address] [place] [address] [place] RBC LM.HPF (Urine sed) [#/Area] 0-3 /HPF Normal 0-3 /HPF [facility] Comment on above: Order Comment: Speci men Type: URINE SPECIMEN [facility] Address: [address] [place] [address] Performed By: #### 2 4356-8 #### [facility] CLIA [id number] [address] [place] [address] [place] [facility] CLIA [id number] [address] [place] [address] [place] Specific gravity (U) [Rel density] 1.025 Normal 1.005-1.030 [facility] Comment on above: Order Comment: Speci men Type: URINE SPECIMEN [facility] Address: [address] [place] [address] Performed By: #### 2 4356-8 #### [facility] CLIA [id number] [address] [place] [address] [place] [facility] CLIA [id number] [address] [place] [address] [place] Urobilinogen Ql (U) 0.2 EU/dL Normal 0.2-1.0 EU/dL [facility] Comment on above: Order Comment: Speci men Type: URINE SPECIMEN [facility] Address: [address] [place] [address] Performed By: #### 2 4356-8 #### [facility] CLIA [id number] [address] [place] [address] [place] [facility] CLIA [id number] [address] [place] [address] [place] WBC LM.HPF (Urine sed) [#/Area] 11-25 /HPF Abnormal 0-5 /HPF [facility] Comment on above: Order Comment: Speci men Type: URINE SPECIMEN [facility] Address: [address] [place] [address] Performed By: #### 2 4356-8 #### [facility] CLIA [id number] [address] [place] [address] [place] [facility] CLIA [id number] [address] [place] [address] [place] Urinalysis complete pnl Uron 11-26-2022 Urinalysis complete panel (U) COLOR: Yellow CLARITY: Clear GLUCOSE, URINE: Negative BILIRUBIN, URINE: Negative KETONES, URINE: Negative SPECIFIC GRAVITY, UR: 1.025 HEMOGLOBIN/BLOOD, UR: Negative PH, URINE: 6.0 PROTEIN, URINE: Negative UROBILINOGEN: 0.2 EU/dL NITRITES: Positive LEUKEST: 1+ WBC, URINE: 11-25 /HPF RBC, URINE: 0-3 /HPF BACTERIA: Many SQUAMOUS EPITHELIAL CELLS: Few CULTURE, URINE: Mixed microbiota, including predominantly: ORGANISM ID: 1 50,000-<100,000 CFU/ml Streptococcus agalactiae (group b streptococcus) Susceptibility testing not performed on beta hemolytic streptococci due to predictable susceptibility to penicillin and other beta lactams. For testing, call Microbiology within 72 hours. Normal [facility] Comment on above: Order Comment: Speci men Type: URINE SPECIMEN [facility] Address: [address] [place] [address] Performed By: #### 2 [id number] #### [facility] CLIA [id number] [address] [place] [address] [place] [facility] CLIA [id number] [address] [facility] [id number] [address] [facility] [place] XR CHEST 1V FRONTAL PORTon 0 11-26-2022 XR CHEST 1V FRONTAL PORT * * *Final Report* * * DATE OF EXAM: Nov 26 2022 3:13PM MDX [id number] - XR CHEST 1V FRONTAL PORT / PROCEDURE REASON: Fatigue and malaise * * * * Physician Interpretation * * * * EXAMINATION: CHEST RADIOGRAPH (PORTABLE SINGLE VIEW AP) Exam Date/Time: 11/26/2022 3:13 PM CLINICAL HISTORY: Fatigue and malaise MQ: XCPR_5 Comparison: 03/06/2019 RESULT: Lines, tubes, and devices: None. Lungs and pleura: New opacity on the lower right may well be collapse of the right lower lobe. Left lung and pleura appear clear. Cardiomediastinal silhouette: Stable cardiomediastinal silhouette. Other: . IMPRESSION: Collapse of the right lower lobe is suspected. Tailor Fitter: SKYLER Transcribe Date/Time: Nov 26 2022 3:37P Dictated by : HEMANTH JOHNSON MD This examination was interpreted and the report reviewed and electronically signed by: HEMANTH JOHNSON MD on Nov 26 2022 3:38PM EST [id number] Normal [facility] Basophil percentageOrdered B y: Errol Michel on 10-22-2022 Bilirubin [Mass/Vol] 0.20 mg/dL 0.20-1.00 [facility] Comment on above: For patients on eltr ombopag therapy, use of Dimension Thurmond TBIL is not recommended. Chloride [Moles/Vol] 112 mmol/L 98-107 [facility] Glucose [Mass/Vol] 77 mg/dL 74-106 [facility] Potassium [Moles/Vol] 4.6 mmol/L 3.5-5.1 [facility] Protein [Mass/Vol] 7.1 g/dL 6.4-8.2 [facility] Sodium [Moles/Vol] 143 mmol/L 136-145 [facility] Laboratory - Chemistry and C hemistry - challengeOrdered By: Errol Michel on 10-22-2022 ALP [Catalytic activity/Vol] 97 U/L 45-117 [facility] ALT [Catalytic activity/Vol] 11 U/L 13-56 [facility] CO2 [Moles/Vol] 27.0 mmol/L 21.0-32.0 [facility] Free T4 [Mass/Vol] 0.49 ng/dL 0.76-1.46 [facility] Globulin (S) [Mass/Vol] 4.2 g/dL 2.2-4.2 [facility] Urea nitrogen/Creatinine [Mass ratio] 21.1 mg/mg 10-20 [facility] No Panel InformationOrdered By: Errol Michel on 10-22-2022 Estimated GFR (MDRD) Amer 56 mL/min >60 [facility] Comment on above: GFR Calc Estimated GFR (MDRD) Non-Af Amer 46 mL/min >60 [facility] Comment on above: Non- GFR Calc Free Triiodothyronine (T3) pg/dL 2.3 pg/mL 2.18-3.98 [facility] Thyroid Stimulating Hormone (TSH) 0.05 uIU/mL 0.358-3.74 [facility] Serum or plasma albumin keli urement (mass/volume)Ordered By: Errol Michel on 10-22-2022 Albumin [Mass/Vol] 2.9 g/dL 3.2-5.0 [facility] Serum or plasma albumin/glob ulin mass ratioOrdered By: Errol Michel on 10-22-2022 Albumin/Globulin [Mass ratio] 0.7 {ratio} 0.9-2.4 [facility] Serum or plasma calcium keli urement (mass/volume)Ordered By: Errol Michel on 10-22-2022 Calcium [Mass/Vol] 8.5 mg/dL 8.5-10.1 [facility] Serum or plasma creatinine m easurement (mass/volume)Ordered By: Errol Michel on 10-22-2022 Creatinine [Mass/Vol] 1.23 mg/dL 0.55-1.02 [facility] Comment on above: The validity of the calculated GFR & GFRAA in patients over 70 years has not been determined. Clinical correlation is essential. Serum or plasma urea nitroge n measurement (mass/volume)Ordered By: Errol Michel on 10-22-2022 Urea nitrogen [Mass/Vol] 26 mg/dL 7-18 [facility] Thin prep Papanicolaou smear with manual screeningOrdered By: Errol Michel on 10-22-2022 Thin prep Papanicolaou smear with manual screening 14 U/L 15-37 [facility] Thin prep Papanicolaou smear with manual screening 4 5-15 [facility] Absolute lymphocyte countOrd ered By: Cyn French on 09-23-2022 Lymphocytes Auto (Unsp spec) [#/Vol] 3.32 10*3/uL 0.83-4.51 [facility] Basophil percentageOrdered B y: Cyn French on 09-23-2022 Basophils/100 WBC (Bld) 0.4 % 0-1 [facility] Bilirubin [Mass/Vol] 0.20 mg/dL 0.20-1.00 [facility] Comment on above: For patients on eltr ombopag therapy, use of Dimension [place] TBIL is not recommended. Chloride [Moles/Vol] 103 mmol/L 98-107 [facility] Eosinophils/100 WBC (Bld) 3.0 % 0-5 [facility] Glucose [Mass/Vol] 93 mg/dL 74-106 [facility] Neutrophils (Bld) [#/Vol] 7.8 10*3/uL 2.0-7.7 [facility] Neutrophils/100 WBC (Bld) 63.3 % 47-70 [facility] Potassium [Moles/Vol] 3.8 mmol/L 3.5-5.1 [facility] Protein [Mass/Vol] 6.7 g/dL 6.4-8.2 [facility] Sodium [Moles/Vol] 139 mmol/L 136-145 [facility] WBC (Bld) [#/Vol] 12.4 10*3/uL 4.4-11.0 [facility] Blood erythrocytes count (nu mber/volume)Ordered By: Cyn French on 09-23-2022 RBC (Bld) [#/Vol] 3.73 10*6/uL 4.2-5.4 [facility] Blood hemoglobin measurement (mass/volume)Ordered By: Cyn French on 09-23-2022 Hemoglobin (Bld) [Mass/Vol] 9.6 g/dL 12.0-15.0 [facility] Blood lymphocytes/100 leukoc ytesOrdered By: Cyn French on 09-23-2022 Lymphocytes/100 WBC (Bld) 26.8 % 19-41 [facility] Blood monocytes/100 leukocyt esOrdered By: Cyn French on 09-23-2022 Monocytes/100 WBC (Bld) 5.9 % 0-10 [facility] Blood platelet mean volumeOr dered By: Cyn French on 09-23-2022 Platelet mean volume (Bld) [Entitic vol] 9.8 fL 6.2-12.0 [facility] Determination of erythrocyte mean corpuscular volume (MCV)Ordered By: Cyn French on 09-23-2022 MCV (RBC) [Entitic vol] 85.8 fL 81-99 [facility] Hematocrit Auto (Bld) [Volum e fraction]Ordered By: Cyn French on 09-23-2022 Hematocrit (Bld) [Volume fraction] 32.0 % 37-47 [facility] Laboratory - Chemistry and C hemistry - challengeOrdered By: Cyn French on 09-23-2022 ALP [Catalytic activity/Vol] 74 U/L 45-117 [facility] ALT [Catalytic activity/Vol] 23 U/L 13-56 [facility] CO2 [Moles/Vol] 28.0 mmol/L 21.0-32.0 [facility] Globulin (S) [Mass/Vol] 3.8 g/dL 2.2-4.2 [facility] Urea nitrogen/Creatinine [Mass ratio] 23.8 mg/mg 10-20 [facility] Laboratory - Hematology and Cell countsOrdered By: Cyn French on 09-23-2022 Erythrocyte distribution width (RBC) [Entitic vol] 49.1 fL 35.1-43.9 [facility] Erythrocyte distribution width (RBC) [Ratio] 16.2 % 11.6-14.6 [facility] Immature granulocytes/100 WBC (Bld) 0.600 % 0.0-0.9 [facility] Comment on above: IG% - Immature Granu locytes (promyelocytes, myelocytes and metamyelocytes) > 1% indicates that a LEFT SHIFT is Present. MCH (RBC) [Entitic mass] 25.7 pg 27.0-32.0 [facility] Nucleated RBC/100 WBC (Bld) [Ratio] 0 % 0-5 [facility] MCHC Auto (RBC) [Mass/Vol]Or dered By: Cyn French on 09-23-2022 MCHC (RBC) [Mass/Vol] 30.0 g/dL 32-36 [facility] No Panel InformationOrdered By: Cyn French on 09-23-2022 Estimated GFR (MDRD) Amer 53 mL/min >60 [facility] Comment on above: GFR Calc Estimated GFR (MDRD) Non-Af Amer 43 mL/min >60 [facility] Comment on above: Non- GFR Calc Platelets bldOrdered By: Homer French on 09-23-2022 Platelets (Bld) [#/Vol] 335 10*3/uL 150-450 [facility] Serum or plasma albumin keli urement (mass/volume)Ordered By: Cyn French on 09-23-2022 Albumin [Mass/Vol] 2.9 g/dL 3.2-5.0 [facility] Serum or plasma albumin/glob ulin mass ratioOrdered By: Cyn French on 09-23-2022 Albumin/Globulin [Mass ratio] 0.8 {ratio} 0.9-2.4 [facility] Serum or plasma calcium keli urement (mass/volume)Ordered By: Cyn French on 09-23-2022 Calcium [Mass/Vol] 8.1 mg/dL 8.5-10.1 [facility] Serum or plasma creatinine m easurement (mass/volume)Ordered By: Cyn French on 09-23-2022 Creatinine [Mass/Vol] 1.30 mg/dL 0.55-1.02 [facility] Comment on above: The validity of the calculated GFR & GFRAA in patients over 70 years has not been determined. Clinical correlation is essential. Serum or plasma urea nitroge n measurement (mass/volume)Ordered By: Cyn French on 09-23-2022 Urea nitrogen [Mass/Vol] 31 mg/dL 7-18 [facility] Thin prep Papanicolaou smear with manual screeningOrdered By: Cyn French on 09-23-2022 Thin prep Papanicolaou smear with manual screening 14 U/L 15-37 [facility] Thin prep Papanicolaou smear with manual screening 8 5-15 [facility] Established Visit (Pain Medi cine)on 09-09-2022 Established Visit (Pain Medicine) Diagnoses/Problems Postlaminectomy syndrome of lumbosacral region (722.83) (M96.1) Secondary fibromyalgia (729.1) (M79.7) Chronic pain syndrome (338.4) (G89.4) Orders Below knee amputation status, right, Chronic pain syndrome, Postlaminectomy syndrome of lumbosacral region, Secondary fibromyalgia Renew: Pregabalin 50 MG Oral Capsule; 1 p.o. 3 times daily Secondary fibromyalgia Renew: Ketamine HCl Powder; Ketamine 100 mg + lidocaine 40 mg nasal spray, 1 puff nasally 4 times daily as needed Dsp# 12 ml Chief Complaint Pain Patient presented to Pain Management to follow up . Verified patient by name and date of . She gets 95% pain relief , she also takes Lyrica which makes her total pain control 99% Adult Risk Screening There are no spiritual/cultural practices/values/needs that are important to know Initial Fall Risk Screening: CODI has not fallen in the last 6 months. She has fallen due to . Her fall did not result in injury. CODI has a fear of falling. She needs assistance with Power wheel chair. Needs assistance walking in her home. She needs assistance in an unfamiliar setting. The patient is using an assistive device. Fall Risk Screening: Patient is identified as a fall risk. Care Plan: High Risk: Low and Moderate risk interventions plus: ensure patient is escorted at all times, do not leave unattended, inform provider of high risk status, discharge by wheelchair or escort assistance, room location, sitter, pre and post sedation/procedure standards, supervised toileting. Altered Mobility: assistive device, physical impairment and unsteady gait. Alteration in Mental Status: no. Relevant Medical History/Diagnosis: Multiple Dx: . Altered Elimination: no. Medications That May Alter Equilibrium: narcotics . polymedication. Sensory Deficit: no. Unable or Unwilling to Follow Directions: no. Low: current pain, age 65 or older and multiple or pertinent current diagnoses. Moderate: fall in last 6 months or fear of falling and unsteady gait/ use of assistive device/apparent weakness or functionally challenged. High: multiple falls within the last 6 months. Please identify location of pain: every where all over her body. Pain Quality: aching and unable to describe. The pain makes it hard for the patient to do these things: house work, self-care (bathing, dressing, eating) and sitting , laying down standing up . History of Present Illness SUBJECTIVE: This is 67 year year old [...] excited to continue with the same treatment. Recall office visit 06/13/2022: This is 67 year year old female [...] this time with IV infusion therapy. I reviewed her medication and the patient is not on any membrane stabilizer. She stated that she had gabapentin in the past that did not help her. She is already on Cymbalta and buspirone I will start her on pregabalin 50 mg at night and then advance gradually to 3 times a day. Her stake driver wants to start her on methotrexate or Plaquenil to see if that helps. Recall office visit 03/11/2022: This is 66 year year old female [...] weeks. The patient is here for follow-up stating that her IV infusion therapy and nasal spray now is working great for her in addition the caudal TR helped a lot. Recall office visit 01/03/2022: This is 66 year year old female [...] go after that to every 3 weeks. (more content not included)... Normal [facility] Absolute lymphocyte countOrd ered By: Cherelle Almendarez on 09-06-2022 Lymphocytes Auto (Unsp spec) [#/Vol] 2.19 10*3/uL 0.83-4.51 [facility] Basophil percentageOrdered B y: Cherelle Almendarez on 09-06-2022 Basophils/100 WBC (Bld) 0.3 % 0-1 [facility] Chloride [Moles/Vol] 103 mmol[facility]L 98-[facility] Eosin[facility]/100 WBC (Bld) 2.7 % 0-5 [facility] Glucose [Mass/Vol] 128 mg/dL 74-106 [facility] Comment on above: Fasting Glucose resu lt greater than or equal to 126 mg/dL suggests DIABETES MELLITUS per A.D.A. criteria. Neutrophils (Bld) [#/Vol] 7.3 10*3/uL 2.0-7.7 [facility] Neutrophils/100 WBC (Bld) 66.8 % 47-70 [facility] Potassium [Moles/Vol] 3.6 mmol/L 3.5-5.1 [facility] Sodium [Moles/Vol] 138 mmol/L 136-145 [facility] WBC (Bld) [#/Vol] 10.9 10*3/uL 4.4-11.0 [facility] Blood erythrocytes count (nu mber/volume)Ordered By: Cherelle Almendarez on 09-06-2022 RBC (Bld) [#/Vol] 3.72 10*6/uL 4.2-5.4 [facility] Blood hemoglobin measurement (mass/volume)Ordered By: Cherelle Almendarez on 09-06-2022 Hemoglobin (Bld) [Mass/Vol] 9.7 g/dL 12.0-15.0 [facility] Blood lymphocytes/100 leukoc ytesOrdered By: Cherelle Almendarez on 09-06-2022 Lymphocytes/100 WBC (Bld) 20.2 % 19-41 [facility] Blood monocytes/100 leukocyt esOrdered By: Cherelle Almendarez on 09-06-2022 Monocytes/100 WBC (Bld) 9.5 % 0-10 [facility] Blood platelet mean volumeOr dered By: Cherelle Almendarez on 09-06-2022 Platelet mean volume (Bld) [Entitic vol] 10.9 fL 6.2-12.0 [facility] Determination of erythrocyte mean corpuscular volume (MCV)Ordered By: Cherelle Almendarez on 09-06-2022 MCV (RBC) [Entitic vol] 84.9 fL 81-99 [facility] Hematocrit Auto (Bld) [Volum e fraction]Ordered By: Cherelle Almendarez on 09-06-2022 Hematocrit (Bld) [Volume fraction] 31.6 % 37-47 [facility] Laboratory - Chemistry and C hemistry - challengeOrdered By: Cherelle Almendarez on 09-06-2022 CO2 [Moles/Vol] 29.0 mmol/L 21.0-32.0 [facility] Urea nitrogen/Creatinine [Mass ratio] 23.5 mg/mg 10-20 [facility] Laboratory - Hematology and Cell countsOrdered By: Cherelle Almendarez on 09-06-2022 Erythrocyte distribution width (RBC) [Entitic vol] 44.1 fL 35.1-43.9 [facility] Erythrocyte distribution width (RBC) [Ratio] 14.4 % 11.6-14.6 [facility] Immature granulocytes/100 WBC (Bld) 0.500 % 0.0-0.9 [facility] Comment on above: IG% - Immature Granu locytes (promyelocytes, myelocytes and metamyelocytes) > 1% indicates that a LEFT SHIFT is Present. MCH (RBC) [Entitic mass] 26.1 pg 27.0-32.0 [facility] Nucleated RBC/100 WBC (Bld) [Ratio] 0 % 0-5 [facility] MCHC Auto (RBC) [Mass/Vol]Or dered By: Cherelle Almendarez on 09-06-2022 MCHC (RBC) [Mass/Vol] 30.7 g/dL 32-36 [facility] No Panel InformationOrdered By: Cherelle Almendarez on 09-06-2022 Estimated Creatinine Clearance Calc 74.58 ml/min [facility] Estimated GFR (MDRD) Amer 91 mL/min >60 [facility] Comment on above: GFR Calc Estimated GFR (MDRD) Non-Af Amer 75 mL/min >60 [facility] Comment on above: Non- GFR Calc Platelets bldOrdered By: Demetria Almendarez on 09-06-2022 Platelets (Bld) [#/Vol] 319 10*3/uL 150-450 [facility] Serum or plasma calcium keli urement (mass/volume)Ordered By: Cherelle Almendarez on 09-06-2022 Calcium [Mass/Vol] 9.5 mg/dL 8.5-10.1 [facility] Serum or plasma creatinine m easurement (mass/volume)Ordered By: Cherelle Almendarez on 09-06-2022 Creatinine [Mass/Vol] 0.81 mg/dL 0.55-1.02 [facility] Comment on above: The validity of the calculated GFR & GFRAA in patients over 70 years has not been determined. Clinical correlation is essential. Serum or plasma urea nitroge n measurement (mass/volume)Ordered By: Cherelle Almendarez on 09-06-2022 Urea nitrogen [Mass/Vol] 19 mg/dL 7-18 [facility] Thin prep Papanicolaou smear with manual screeningOrdered By: Cherelle Almendarez on 09-06-2022 Thin prep Papanicolaou smear with manual screening 6 5-15 [facility] Base excessOrdered By: Ozzie Almendarez on 09-05-2022 Base excess Calc (BldV) [Moles/Vol] 5 mmol/L -2-2 [facility] Basophil percentageOrdered B y: Cherelle Almendarez on 09-05-2022 Basophil percentage 28.5 mmol/L 22-26 [facility] Basophils/100 WBC (Bld) 93 % 95-99 [facility] Blood manual differential co mment interpretation (narrative result)Ordered By: Cherelle Almendarez on 09-05-2022 Manual differential comment Sharif (Bld) [Interp] SCANNED [facility] Blood platelet adequacy dete ction by light microscopyOrdered By: Cherelle Almendarez on 09-05-2022 Platelets LM Ql (Bld) ADEQUATE ADEQ [facility] CO2 (BldA) [Partial pressure ]Ordered By: Cherelle Almendarez on 09-05-2022 CO2 (Bld) [Partial pressure] 38.3 mm[Hg] 35-45 [facility] No Panel InformationOrdered By: Cherelle Almendarez on 09-05-2022 Blood Gas Liter Flow 3.0 /min [facility] Blood Gas Sample Site L Brach [facility] Blood Gas Specimen Type ART W [facility] Blood Gas Total CO2 30 mmol/L [facility] Oxygen Delivery Device Cannula [facility] Oxygen (BldA) [Partial press ure]Ordered By: Cherelle Almendarez on 09-05-2022 Oxygen (Bld) [Partial pressure] 62 mmHG 75-100 [facility] pH measurementOrdered By: Shavon Almendarez on 09-05-2022 pH (Unsp spec) 7.48 [pH] 7.35-7.45 [facility] Basophil percentageOrdered B y: Vane Lisa on 09-04-2022 Basophil percentage 2.2 mg/dL 2.5-4.9 [facility] Laboratory - Chemistry and C hemistry - challengeOrdered By: Vane Lisa on 09-04-2022 Magnesium [Mass/Vol] 1.9 mg/dL 1.6-2.6 [facility] Basophil percentageOrdered B y: Cherelle Almendarez on 09-03-2022 Bilirubin [Mass/Vol] 0.30 mg/dL 0.20-1.00 [facility] Comment on above: For patients on eltr ombopag therapy, use of Dimension [place] TBIL is not recommended. Protein [Mass/Vol] 7.0 g/dL 6.4-8.2 [facility] Laboratory - Chemistry and C hemistry - challengeOrdered By: Cherelle Almendarez on 09-03-2022 ALP [Catalytic activity/Vol] 78 U/L 45-117 [facility] ALT [Catalytic activity/Vol] 21 U/L 13-56 [facility] Globulin (S) [Mass/Vol] 4.2 g/dL 2.2-4.2 [facility] Review by pathologistOrdered By: Cherelle Almendarez on 09-03-2022 Pathologist review Sharif (Unsp spec) [Interp] Reviewed [facility] Comment on above: Previous reported re sult: Priscila ernst Edited by: PREET on 09/08/22:0859Neutrophilic leukocytosis.Clinical correlation necessary.Prabhjot Dotson M.D. 09/08/22 AMENDED REPORT 09/08/22 0859 PATH REV previously reported as: Priscila ernst Serum or plasma albumin keli urement (mass/volume)Ordered By: Cherelle Almendarez on 09-03-2022 Albumin [Mass/Vol] 2.8 g/dL 3.2-5.0 [facility] Serum or plasma albumin/glob ulin mass ratioOrdered By: Cherelle Almendarez on 09-03-2022 Albumin/Globulin [Mass ratio] 0.7 {ratio} 0.9-2.4 [facility] Thin prep Papanicolaou smear with manual screeningOrdered By: Cherelle Almendarez on 09-03-2022 Thin prep Papanicolaou smear with manual screening 15 U/L 15-37 [facility] Atypical perinuclear antineu trophil cytoplasmic antibodies measurementOrdered By: Cherelle Almendarez on 09-02-2022 Neutrophil cytoplasmic Ab.perinuclear.atypical IF (S) [Titer] <1:20 titer Neg:<1:20 [facility] Comment on above: The atypical pANCA p attern has been observed in asignificant percentage of patients with ulcerative colitis,primary sclerosing cholangitis and autoimmune hepatitis.Performed at: - [facility] [id number] Director: Mahamed Martinez PhD, Phone: [phone] Basophil percentageOrdered B y: Cherelle Almendarez on 09-02-2022 Basophil percentage < 0.2 AI 0.0-0.9 [facility] No Panel InformationOrdered By: Cherelle Almendarez on 09-02-2022 Centromere B Antibody <0.2 AI 0.0-0.9 [facility] [employer] OPERATOR Antibody <0.2 AI 0.0-0.9 [facility] Serum DNA double strand anti body assay (units/volume)Ordered By: Cherelle Almendarez on 09-02-2022 DNA double strand Ab Qn (S) [IU]/mL 0-9 [facility] Comment on above: Negative <5 Equivoca l 5 - 9 Positive >9 Serum Lissett-1 antibody assay (u nits/volume)Ordered By: Cherelle Almendarez on 09-02-2022 Lissett-1 extractable nuclear Ab Qn (S) <0.2 AI 0.0-0.9 [facility] Serum Scl-70 extractable nuc lear antibody assay (units/volume)Ordered By: Cherelle Almendarez on 09-02-2022 SCL-70 extractable nuclear Ab Qn (S) <0.2 AI 0.0-0.9 [facility] Serum Shaw extractable nucl ear antibody detectionOrdered By: Cherelle Almendarez on 09-02-2022 Shaw extractable nuclear Ab Ql (S) <0.2 AI 0.0-0.9 [facility] Serum classic neutrophil cyt oplasmic antibody assay (units/volume)Ordered By: Cherelle Almendarez on 09-02-2022 Neutrophil cytoplasmic Ab.classic Qn (S) <1:20 titer Neg:<1:20 [facility] Serum perinuclear neutrophil cytoplasmic antibody titer by immunofluorescenceOrdered By: Cherelle Almendarez on 09-02-2022 Neutrophil cytoplasmic Ab.perinuclear IF (S) [Titer] <1:20 titer Neg:<1:20 [facility] Comment on above: The presence of posi tive fluorescence exhibiting P-ANCA orC-ANCA patterns alone is not specific for the diagnosis ofWegener's Granulomatosis (WG) or microscopic polyangiitis.Decisions about treatment should not be based solely onANCA IFA results. The [employer] ANCA Group Consensusrecommends follow up testing of positive sera with both HI-3 and MPO-ANCA enzyme immunoassays. As many as 5% serumsamples are positive only by EIA. Ref. AM J Clin [id number];111:507-513. Serum rheumatoid factor dete ctionOrdered By: Cherelle Almendarez on 09-02-2022 Rheumatoid factor Ql (S) < 10.0 IU/mL <15 [facility] Glucose Glucometer (BldC) [M ass/Vol]Ordered By: Yaw Reyna on 08-30-2022 Glucose [Mass/Vol] 113 mg/dL 74-106 [facility] Comment on above: MANAGEMENT OF PATIEN T CARE PER NURSING PROTOCOL No Panel InformationOrdered By: Yaw Reyna on 08-29-2022 Blood Gas Clinical Comments airvo 50L 65% [facility] Blood Gas Oxygen Percent 65 [facility] Assessment of wrist artery p atency prior to arterial punctureOrdered By: Yaw Reyna on 08-28-2022 Arterial patency Wrist artery --pre arterial puncture Positive [facility] No Panel InformationOrdered By: Yaw Reyna on 08-28-2022 Blood Gas Vent Mode CPAP/PS [facility] Laboratory - Chemistry and C hemistry - challengeOrdered By: Caesar Salgado on 08-27-2022 Natriuretic peptide B (Bld) [Mass/Vol] 157.9 pg/mL 0-100 [facility] Serum procalcitonin measurem entOrdered By: Caesar Salgado on 08-27-2022 Procalcitonin [Mass/Vol] ng/mL 0.00-0.09 [facility] Comment on above: A procalcitonin (PCT ) level above 2.0 ng/mL on the first day of ICU admission is associated with a high risk for progression to severe sepsis and/or septic shock. A PCT level below 0.5 ng/mL on the first day of ICU admission is associated with a low risk for progression to severe and/or septic shock. Note: Concentrations <0.5 ng/mL do not exclude an infection on account of localized infections (without systemic signs) which can be associated with such low concentrations, or a systemic infection in its initial stages (<6 hours). Furthermore, increased procalcitonin can occur without infection. PCT concentrations between 0.5 and 2.0 ng/mL should be interpreted taking into account the patient's history. It is recommended to retest PCT within 6-24 hours if any concentrations <2 ng/mL are obtained. Absolute lymphocyte countOrd ered By: Dr. Reyna on 08-26-2022 Lymphocytes Auto (Unsp spec) [#/Vol] 0.98 10*3/uL 0.83-4.51 [facility] Assessment of wrist artery p atency prior to arterial punctureOrdered By: Dr. Reyna on 08-26-2022 Arterial patency Wrist artery --pre arterial puncture Positive [facility] Base excessOrdered By: Dr. Priscila cr on 08-26-2022 Base excess Calc (BldV) [Moles/Vol] 1 mmol/L -2-2 [facility] Basophil percentageOrdered B y: Dr. Reyna on 08-26-2022 Basophil percentage 2.5 mg/dL 2.5-4.9 [facility] Basophils/100 WBC (Bld) 0.0 % 0-1 [facility] Bilirubin [Mass/Vol] 0.30 mg/dL 0.20-1.00 [facility] Comment on above: For patients on eltr ombopag therapy, use of Dimension [place] TBIL is not recommended. Chloride [Moles/Vol] 112 mmol/L 98-107 [facility] Eosinophils/100 WBC (Bld) 0.0 % 0-5 [facility] Glucose [Mass/Vol] 121 mg/dL 74-106 [facility] Comment on above: Fasting Glucose resu lt from 100 to 125 mg/dL suggests IMPAIRED HOMEOSTASIS per A.D.A. criteria. Neutrophils (Bld) [#/Vol] 8.7 10*3/uL 2.0-7.7 [facility] Neutrophils/100 WBC (Bld) 84.4 % 47-70 [facility] Potassium [Moles/Vol] 4.1 mmol/L 3.5-5.1 [facility] Protein [Mass/Vol] 7.3 g/dL 6.4-8.2 [facility] Sodium [Moles/Vol] 146 mmol/L 136-145 [facility] WBC (Bld) [#/Vol] 10.3 10*3/uL 4.4-11.0 [facility] Basophil percentage 26.1 mmol/L 22-26 [facility] Basophils/100 WBC (Bld) 93 % 95-99 [facility] Blood erythrocytes count (nu mber/volume)Ordered By: Dr. Reyna on 08-26-2022 RBC (Bld) [#/Vol] 3.78 10*6/uL 4.2-5.4 [facility] Blood hemoglobin measurement (mass/volume)Ordered By: Dr. Reyna on 08-26-2022 Hemoglobin (Bld) [Mass/Vol] 10.1 g/dL 12.0-15.0 [facility] Blood lymphocytes/100 leukoc ytesOrdered By: Dr. Reyna on 08-26-2022 Lymphocytes/100 WBC (Bld) 9.6 % 19-41 [facility] Blood monocytes/100 leukocyt esOrdered By: Dr. Reyna on 08-26-2022 Monocytes/100 WBC (Bld) 5.7 % 0-10 [facility] Blood platelet mean volumeOr dered By: Dr. Reyna on 08-26-2022 Platelet mean volume (Bld) [Entitic vol] 9.6 fL 6.2-12.0 [facility] CO2 (BldA) [Partial pressure ]Ordered By: Dr. Reyna on 08-26-2022 CO2 (Bld) [Partial pressure] 43.1 mm[Hg] 35-45 [facility] Determination of erythrocyte mean corpuscular volume (MCV)Ordered By: Dr. Reyna on 08-26-2022 MCV (RBC) [Entitic vol] 86.8 fL 81-99 [facility] Direct bilirubinOrdered By: Dr. Reyna on 08-26-2022 Bilirubin.direct [Mass/Vol] 0.10 mg/dL 0.00-0.30 [facility] Hematocrit Auto (Bld) [Volum e fraction]Ordered By: Dr. Reyna on 08-26-2022 Hematocrit (Bld) [Volume fraction] 32.8 % 37-47 [facility] Laboratory - Chemistry and C hemistry - challengeOrdered By: Dr. Reyna on 08-26-2022 ALP [Catalytic activity/Vol] 71 U/L 45-117 [facility] ALT [Catalytic activity/Vol] 23 U/L 13-56 [facility] CO2 [Moles/Vol] 28.0 mmol/L 21.0-32.0 [facility] Globulin (S) [Mass/Vol] 4.2 g/dL 2.2-4.2 [facility] Magnesium [Mass/Vol] 2.7 mg/dL 1.6-2.6 [facility] Urea nitrogen/Creatinine [Mass ratio] 36.9 mg/mg 10-20 [facility] Laboratory - Hematology and Cell countsOrdered By: Dr. Reyna on 08-26-2022 Erythrocyte distribution width (RBC) [Entitic vol] 48.4 fL 35.1-43.9 [facility] Erythrocyte distribution width (RBC) [Ratio] 15.2 % 11.6-14.6 [facility] Immature granulocytes/100 WBC (Bld) 0.300 % 0.0-0.9 [facility] Comment on above: IG% - Immature Granu locytes (promyelocytes, myelocytes and metamyelocytes) > 1% indicates that a LEFT SHIFT is Present. MCH (RBC) [Entitic mass] 26.7 pg 27.0-32.0 [facility] Nucleated RBC/100 WBC (Bld) [Ratio] 0 % 0-5 [facility] MCHC Auto (RBC) [Mass/Vol]Or dered By: Dr. Reyna on 08-26-2022 MCHC (RBC) [Mass/Vol] 30.8 g/dL 32-36 [facility] No Panel InformationOrdered By: Dr. Reyna on 08-26-2022 Estimated Creatinine Clearance Calc 60.33 ml/min [facility] Estimated GFR (MDRD) Amer 69 mL/min >60 [facility] Comment on above: GFR Calc Estimated GFR (MDRD) Non-Af Amer 57 mL/min >60 [facility] Comment on above: Non- GFR Calc Blood Gas Liter Flow 11.0 /min [facility] Blood Gas Sample Site L Radial [facility] Blood Gas Specimen Type ART [facility] Blood Gas Total CO2 27 mmol/L [facility] Oxygen Delivery Device Cannula [facility] Oxygen (BldA) [Partial press ure]Ordered By: Dr. Reyna on 08-26-2022 Oxygen (Bld) [Partial pressure] 67 mmHG 75-100 [facility] Platelets bldOrdered By: Dr. Reyna on 08-26-2022 Platelets (Bld) [#/Vol] 314 10*3/uL 150-450 [facility] Serum or plasma albumin keli urement (mass/volume)Ordered By: Dr. Reyna on 08-26-2022 Albumin [Mass/Vol] 3.1 g/dL 3.2-5.0 [facility] Serum or plasma calcium keli urement (mass/volume)Ordered By: Dr. Ryena on 08-26-2022 Calcium [Mass/Vol] 9.1 mg/dL 8.5-10.1 [facility] Serum or plasma creatinine m easurement (mass/volume)Ordered By: Dr. Reyna on 08-26-2022 Creatinine [Mass/Vol] 1.03 mg/dL 0.55-1.02 [facility] Comment on above: The validity of the calculated GFR & GFRAA in patients over 70 years has not been determined. Clinical correlation is essential. Serum or plasma urea nitroge n measurement (mass/volume)Ordered By: Dr. Reyna on 08-26-2022 Urea nitrogen [Mass/Vol] 38 mg/dL 7-18 [facility] Thin prep Papanicolaou smear with manual screeningOrdered By: Dr. Reyna on 08-26-2022 Thin prep Papanicolaou smear with manual screening 17 U/L 15-37 [facility] Thin prep Papanicolaou smear with manual screening 6 5-15 [facility] pH measurementOrdered By: Dr Lawanda Reyna on 08-26-2022 pH (Unsp spec) 7.39 [pH] 7.35-7.45 [facility] Serum or plasma albumin/glob ulin mass ratioOrdered By: Dr. Gardiner on 08-25-2022 Albumin/Globulin [Mass ratio] 0.8 {ratio} 0.9-2.4 [facility] Basophil percentageOrdered B y: Dr. Gardiner on 08-24-2022 Lactate [Moles/Vol] 0.8 mmol/L 0.4-2.0 [facility] Laboratory - Chemistry and C hemistry - challengeOrdered By: Dr. Gardiner on 08-24-2022 Free T4 [Mass/Vol] 0.95 ng/dL 0.76-1.46 [facility] Laboratory - Microbiology an d Antimicrobial susceptibilityOrdered By: Dr. Goldsmith on 08-24-2022 Respiratory pathogens DNA and RNA 12b panel FLEX+probe (Unsp spec) [facility] No Panel InformationOrdered By: Dr. Gardiner on 08-24-2022 Blood Gas Oxygen Percent 55 [facility] Blood Gas Vent Mode BiLevel [facility] D-Dimer Quantitative (PE/DVT) 0.62 FEU/ug/m 0.27-0.49 [facility] Comment on above: D-Dimer ELEVATED (>0 .49): Additional studies and clinicalassessments are indicated to conclude diagnosis of:Deep Vein Thrombosis (DVT) or Pulmonary Embolism (PE)RESULTS CALLED TO Bere MTZ RN PCU 08/24/22 1015 Becca Escamilla.REPORT READ BACK BY SAME Free Triiodothyronine (T3) pg/dL 2.7 pg/mL 2.18-3.98 [facility] Thyroid Stimulating Hormone (TSH) 0.06 uIU/mL 0.358-3.74 [facility] Absolute lymphocyte countOrd ered By: Dr. Leon on 08-23-2022 Lymphocytes Auto (Unsp spec) [#/Vol] 2.45 10*3/uL 0.83-4.51 [facility] Assessment of wrist artery p atency prior to arterial punctureOrdered By: Dr. Goldsmith on 08-23-2022 Arterial patency Wrist artery --pre arterial puncture Positive [facility] Base excessOrdered By: Dr. Navneet walden on 08-23-2022 Base excess Calc (BldV) [Moles/Vol] 4 mmol/L -2-2 [facility] Basophil percentageOrdered B y: Dr. Goldsmith on 08-23-2022 Basophil percentage 29.3 mmol/L 22- [facility] Basophils/100 WBC (Bld) 92 % 95-99 [facility] Basophil percentageOrdered B y: Dr. Leon on 08-23-2022 Basophils/100 WBC (Bld) 0.7 % 0-1 [facility] Chloride [Moles/Vol] 103 mmol/L 98-107 [facility] Eosinophils/100 WBC (Bld) 2.3 % 0-5 [facility] Glucose [Mass/Vol] 144 mg/dL 74-106 [facility] Comment on above: Fasting Glucose resu lt greater than or equal to 126 mg/dL suggests DIABETES MELLITUS per A.D.A. criteria. Neutrophils (Bld) [#/Vol] 5.2 10*3/uL 2.0-7.7 [facility] Neutrophils/100 WBC (Bld) 57.7 % 47-70 [facility] Potassium [Moles/Vol] 3.3 mmol/L 3.5-5.1 [facility] Sodium [Moles/Vol] 140 mmol/L 136-145 [facility] WBC (Bld) [#/Vol] 9.0 10*3/uL 4.4-11.0 [facility] Blood erythrocytes count (nu mber/volume)Ordered By: Dr. Leon on 08-23-2022 RBC (Bld) [#/Vol] 3.98 10*6/uL 4.2-5.4 [facility] Blood hemoglobin measurement (mass/volume)Ordered By: Dr. Leon on 08-23-2022 Hemoglobin (Bld) [Mass/Vol] 10.6 g/dL 12.0-15.0 [facility] Blood lymphocytes/100 leukoc ytesOrdered By: Dr. Leon on 08-23-2022 Lymphocytes/100 WBC (Bld) 27.4 % 19-41 [facility] Blood monocytes/100 leukocyt esOrdered By: Dr. Leon on 08-23-2022 Monocytes/100 WBC (Bld) 11.5 % 0-10 [facility] Blood platelet mean volumeOr dered By: Dr. Leon on 08-23-2022 Platelet mean volume (Bld) [Entitic vol] 9.7 fL 6.2-12.0 [facility] CO2 (BldA) [Partial pressure ]Ordered By: Dr. Goldsmith on 08-23-2022 CO2 (Bld) [Partial pressure] 52.9 mm[Hg] 35-45 [facility] Determination of erythrocyte mean corpuscular volume (MCV)Ordered By: Dr. Leon on 08-23-2022 MCV (RBC) [Entitic vol] 86.2 fL 81-99 [facility] Hematocrit Auto (Bld) [Volum e fraction]Ordered By: Dr. Leon on 08-23-2022 Hematocrit (Bld) [Volume fraction] 34.3 % 37-47 [facility] Laboratory - Chemistry and C hemistry - challengeOrdered By: Dr. Leon on 08-23-2022 CO2 [Moles/Vol] 31.0 mmol/L 21.0-32.0 [facility] Natriuretic peptide B (Bld) [Mass/Vol] 23.5 pg/mL 0-100 [facility] Urea nitrogen/Creatinine [Mass ratio] 14.2 mg/mg 10-20 [facility] Laboratory - Hematology and Cell countsOrdered By: Dr. Leon on 08-23-2022 Erythrocyte distribution width (RBC) [Entitic vol] 49.2 fL 35.1-43.9 [facility] Erythrocyte distribution width (RBC) [Ratio] 15.8 % 11.6-14.6 [facility] Immature granulocytes/100 WBC (Bld) 0.400 % 0.0-0.9 [facility] Comment on above: IG% - Immature Granu locytes (promyelocytes, myelocytes and metamyelocytes) > 1% indicates that a LEFT SHIFT is Present. MCH (RBC) [Entitic mass] 26.6 pg 27.0-32.0 [facility] Nucleated RBC/100 WBC (Bld) [Ratio] 0 % 0-5 [facility] Laboratory - Microbiology an d Antimicrobial susceptibilityOrdered By: Samuel Goldsmith on 08-23-2022 Respiratory pathogens DNA and RNA 12b panel FLEX+probe (Unsp spec) [facility] MCHC Auto (RBC) [Mass/Vol]Or dered By: Dr. Leon on 08-23-2022 MCHC (RBC) [Mass/Vol] 30.9 g/dL 32-36 [facility] No Panel InformationOrdered By: Dr. Goldsmith on 08-23-2022 Blood Gas Clinical Comments 16 9 75% [facility] Blood Gas Oxygen Percent 75 [facility] Blood Gas Sample Site R Radial [facility] Blood Gas Specimen Type ART W [facility] Blood Gas Total CO2 31 mmol/L [facility] Oxygen Delivery Device BiPAP [facility] No Panel InformationOrdered By: Dr. Leon on 08-23-2022 Estimated Creatinine Clearance Calc 32.33 ml/min [facility] Estimated GFR (MDRD) Amer 33 mL/min >60 [facility] Comment on above: GFR Calc Estimated GFR (MDRD) Non-Af Amer 27 mL/min >60 [facility] Comment on above: Non- GFR Calc Troponin I High Sensitivity 10 pg/mL 3.0-54.0 [facility] Comment on above: Please Note: [place] t Units and Gender Specific Reference Ranges. For more information see Policy Stat Procedure [place] High Sensitivity Troponin (TNIH) and attachments. Oxygen (BldA) [Partial press ure]Ordered By: Dr. Goldsmith on 08-23-2022 Oxygen (Bld) [Partial pressure] 70 mmHG 75-100 [facility] Platelets bldOrdered By: Dr. Leon on 08-23-2022 Platelets (Bld) [#/Vol] 360 10*3/uL 150-450 [facility] Serum or plasma calcium keli urement (mass/volume)Ordered By: Dr. Leon on 08-23-2022 Calcium [Mass/Vol] 8.8 mg/dL 8.5-10.1 [facility] Serum or plasma creatinine m easurement (mass/volume)Ordered By: Dr. Leon on 08-23-2022 Creatinine [Mass/Vol] 1.97 mg/dL 0.55-1.02 [facility] Comment on above: The validity of the calculated GFR & GFRAA in patients over 70 years has not been determined. Clinical correlation is essential. Serum or plasma urea nitroge n measurement (mass/volume)Ordered By: Dr. Leon on 08-23-2022 Urea nitrogen [Mass/Vol] 28 mg/dL 7-18 [facility] Serum procalcitonin measurem entOrdered By: Dr. Goldsmith on 08-23-2022 Procalcitonin [Mass/Vol] 0.16 ng/mL 0.00-0.09 [facility] Comment on above: A procalcitonin (PCT ) level above 2.0 ng/mL on the first day of ICU admission is associated with a high risk for progression to severe sepsis and/or septic shock. A PCT level below 0.5 ng/mL on the first day of ICU admission is associated with a low risk for progression to severe and/or septic shock. Note: Concentrations <0.5 ng/mL do not exclude an infection on account of localized infections (without systemic signs) which can be associated with such low concentrations, or a systemic infection in its initial stages (<6 hours). Furthermore, increased procalcitonin can occur without infection. PCT concentrations between 0.5 and 2.0 ng/mL should be interpreted taking into account the patient's history. It is recommended to retest PCT within 6-24 hours if any concentrations <2 ng/mL are obtained. Thin prep Papanicolaou smear with manual screeningOrdered By: Dr. Leon on 08-23-2022 Thin prep Papanicolaou smear with manual screening 6 5-15 [facility] pH measurementOrdered By: Dr Lawanda Goldsmith on 08-23-2022 pH (Unsp spec) 7.35 [pH] 7.35-7.45 [facility] Absolute lymphocyte countOrd ered By: Dr. Michel on 08-20-2022 Lymphocytes Auto (Unsp spec) [#/Vol] 2.68 10*3/uL 0.83-4.51 [facility] Basophil percentageOrdered B y: Dr. Michel on 08-20-2022 Basophils/100 WBC (Bld) 0.6 % 0-1 [facility] Bilirubin [Mass/Vol] 0.30 mg/dL 0.20-1.00 [facility] Comment on above: For patients on eltr ombopag therapy, use of Dimension [place] TBIL is not recommended. Chloride [Moles/Vol] 107 mmol/L 98-107 [facility] Eosinophils/100 WBC (Bld) 2.0 % 0-5 [facility] Glucose [Mass/Vol] 108 mg/dL 74-106 [facility] Comment on above: Fasting Glucose resu lt from 100 to 125 mg/dL suggests IMPAIRED HOMEOSTASIS per A.D.A. criteria. Neutrophils (Bld) [#/Vol] 5.8 10*3/uL 2.0-7.7 [facility] Neutrophils/100 WBC (Bld) 59.3 % 47-70 [facility] Potassium [Moles/Vol] 4.1 mmol/L 3.5-5.1 [facility] Protein [Mass/Vol] 7.3 g/dL 6.4-8.2 [facility] Sodium [Moles/Vol] 139 mmol/L 136-145 [facility] WBC (Bld) [#/Vol] 9.9 10*3/uL 4.4-11.0 [facility] Blood erythrocytes count (nu mber/volume)Ordered By: Dr. Michel on 08-20-2022 RBC (Bld) [#/Vol] 4.05 10*6/uL 4.2-5.4 [facility] Blood hemoglobin measurement (mass/volume)Ordered By: Dr. Michel on 08-20-2022 Hemoglobin (Bld) [Mass/Vol] 10.7 g/dL 12.0-15.0 [facility] Blood lymphocytes/100 leukoc ytesOrdered By: Dr. Michel on 08-20-2022 Lymphocytes/100 WBC (Bld) 27.2 % 19-41 [facility] Blood monocytes/100 leukocyt esOrdered By: Dr. Michel on 08-20-2022 Monocytes/100 WBC (Bld) 10.6 % 0-10 [facility] Blood platelet mean volumeOr dered By: Dr. Michel on 08-20-2022 Platelet mean volume (Bld) [Entitic vol] 9.5 fL 6.2-12.0 [facility] Determination of erythrocyte mean corpuscular volume (MCV)Ordered By: Dr. Michel on 08-20-2022 MCV (RBC) [Entitic vol] 86.2 fL 81-99 [facility] Erythrocyte sedimentation ra teOrdered By: Dr. Michel on 08-20-2022 ESR (Bld) [Velocity] 24 mm/h 0-30 [facility] Hematocrit Auto (Bld) [Volum e fraction]Ordered By: Dr. Michel on 08-20-2022 Hematocrit (Bld) [Volume fraction] 34.9 % 37-47 [facility] Laboratory - Chemistry and C hemistry - challengeOrdered By: Dr. Michel on 08-20-2022 ALP [Catalytic activity/Vol] 84 U/L 45-117 [facility] ALT [Catalytic activity/Vol] 25 U/L 13-56 [facility] CO2 [Moles/Vol] 25.0 mmol/L 21.0-32.0 [facility] Globulin (S) [Mass/Vol] 4.0 g/dL 2.2-4.2 [facility] Magnesium [Mass/Vol] 1.8 mg[facility] Natri[facility]tic peptide B (Bld) [Mass/Vol] 9.5 pg/mL 0-100 [facility] Urea nitrogen/Creatinine [Mass ratio] 16.0 mg/mg 10-20 [facility] Laboratory - Hematology and Cell countsOrdered By: Dr. Michel on 08-20-2022 Erythrocyte distribution width (RBC) [Entitic vol] 48.8 fL 35.1-43.9 [facility] Erythrocyte distribution width (RBC) [Ratio] 15.5 % 11.6-14.6 [facility] Immature granulocytes/100 WBC (Bld) 0.300 % 0.0-0.9 [facility] Comment on above: IG% - Immature Granu locytes (promyelocytes, myelocytes and metamyelocytes) > 1% indicates that a LEFT SHIFT is Present. MCH (RBC) [Entitic mass] 26.4 pg 27.0-32.0 [facility] Nucleated RBC/100 WBC (Bld) [Ratio] 0 % 0-5 [facility] MCHC Auto (RBC) [Mass/Vol]Or dered By: Dr. Michel on 08-20-2022 MCHC (RBC) [Mass/Vol] 30.7 g/dL 32-36 [facility] No Panel InformationOrdered By: Dr. Michel on 08-20-2022 Estimated GFR (MDRD) Amer 39 mL/min >60 [facility] Comment on above: GFR Calc Estimated GFR (MDRD) Non-Af Amer 32 mL/min >60 [facility] Comment on above: Non- GFR Calc Platelets bldOrdered By: Dr. Michel on 08-20-2022 Platelets (Bld) [#/Vol] 429 10*3/uL 150-450 [facility] Serum or plasma C reactive p rotein measurement (mass/volume)Ordered By: Dr. Michel on 08-20-2022 CRP [Mass/Vol] 5.26 mg/L 0.0-3.0 [facility] Comment on above: C-Reactive Protein ( CRP) provides useful information for thediagnosis, therapy and monitoring of inflammatory processesand associated diseases. For the evaluation of Relative Riskfor Cardiovascular Disease, a High Sensitivity CRP (HSCRP)should be ordered. Serum or plasma albumin keli urement (mass/volume)Ordered By: Dr. Michel on 08-20-2022 Albumin [Mass/Vol] 3.3 g/dL 3.2-5.0 [facility] Serum or plasma albumin/glob ulin mass ratioOrdered By: Dr. Michel on 08-20-2022 Albumin/Globulin [Mass ratio] 0.8 {ratio} 0.9-2.4 [facility] Serum or plasma calcium keli urement (mass/volume)Ordered By: Dr. Michel on 08-20-2022 Calcium [Mass/Vol] 8.5 mg/dL 8.5-10.1 [facility] Serum or plasma creatinine m easurement (mass/volume)Ordered By: Dr. Mihcel on 08-20-2022 Creatinine [Mass/Vol] 1.69 mg/dL 0.55-1.02 [facility] Comment on above: The validity of the calculated GFR & GFRAA in patients over 70 years has not been determined. Clinical correlation is essential. Serum or plasma urea nitroge n measurement (mass/volume)Ordered By: Dr. Michel on 08-20-2022 Urea nitrogen [Mass/Vol] 27 mg/dL 7-18 [facility] Thin prep Papanicolaou smear with manual screeningOrdered By: Dr. Michel on 08-20-2022 Thin prep Papanicolaou smear with manual screening 20 U/L 15-37 [facility] Thin prep Papanicolaou smear with manual screening 7 5-15 [facility] Laboratory - Chemistry and C hemistry - challengeOrdered By: Dr. Michel on 07-30-2022 Free T4 [Mass/Vol] 0.83 ng/dL 0.76-1.46 [facility] No Panel InformationOrdered By: Dr. Michel on 07-30-2022 Free Triiodothyronine (T3) pg/dL 1.5 pg/mL 2.18-3.98 [facility] Thyroid Stimulating Hormone (TSH) 0.02 uIU/mL 0.358-3.74 [facility] Laboratory - Chemistry and C hemistry - challengeOrdered By: Dr. Michel on 06-19-2022 Free T4 [Mass/Vol] 0.91 ng/dL 0.76-1.46 [facility] No Panel InformationOrdered By: Dr. Michel on 06-19-2022 Free Triiodothyronine (T3) pg/dL 1.9 pg/mL 2.18-3.98 [facility] Thyroid Stimulating Hormone (TSH) 0.03 uIU/mL 0.358-3.74 [facility] Established Visit (Pain Medi cine)on 06-13-2022 Established Visit (Pain Medicine) Diagnoses/Problems Postlaminectomy syndrome of lumbosacral region (722.83) (M96.1) Below knee amputation status, right Chronic pain syndrome (338.4) (G89.4) Secondary fibromyalgia (729.1) (M79.7) Orders Below knee amputation status, right, Chronic pain syndrome, Postlaminectomy syndrome of lumbosacral region, Secondary fibromyalgia Start: Pregabalin 50 MG Oral Capsule; 1 p.o. at bedtime x3 days then 1 in the afternoon x3 days and finally 1 p.o. 3 times daily Chief Complaint Back Pain Pain Patient presented to Pain Management to follow up . Verified patient by name and date of . BMI 33. Smoker Patient here for a follow up. She gets IV infusions for her fibromyalgia and back pain. She gets 80% pain relief in her back for one week. The iv infusions do not help with her fibromyalgia pain . She also uses the Ketamine nasal spray which gives her 10 % pain relief . Adult Risk Screening There are no spiritual/cultural practices/values/needs that are important to know Initial Fall Risk Screening: CODI has fallen in the last 6 months. She has fallen due to she feel out of bed 02/2023. Her fall resulted in the following injury: yes she had some on her left side of her ribs . CODI has a fear of falling. She needs assistance with Power wheel chair. Needs assistance walking in her home. She needs assistance in an unfamiliar setting. The patient is using an assistive device. Fall Risk Screening: Patient is identified as a fall risk. Care Plan: High Risk: Low and Moderate risk interventions plus: ensure patient is escorted at all times, do not leave unattended, inform provider of high risk status, discharge by wheelchair or escort assistance, room location, sitter, pre and post sedation/procedure standards, supervised toileting. Altered Mobility: assistive device, physical impairment and unsteady gait. Alteration in Mental Status: no. Relevant Medical History/Diagnosis: Multiple Dx: . Altered Elimination: no. Medications That May Alter Equilibrium: narcotics . polymedication. Sensory Deficit: no. Unable or Unwilling to Follow Directions: no. Low: current pain, age 65 or older and multiple or pertinent current diagnoses. Moderate: fall in last 6 months or fear of falling and unsteady gait/ use of assistive device/apparent weakness or functionally challenged. High: multiple falls within the last 6 months. Pain Scale: On a scale of 0 to 10, the patient rates the pain at 7. Please identify location of pain: every where all over her body. Pain Quality: aching and unable to describe. The pain makes it hard for the patient to do these things: self-care (bathing, dressing, eating) and sitting , laying down standing up . History of Present Illness SUBJECTIVE: This is 67 year year old [...] this time with IV infusion therapy. I reviewed her medication and the patient is not on any membrane stabilizer. She stated that she had gabapentin in the past that did not help her. She is already on Cymbalta and buspirone I will start her on pregabalin 50 mg at night and then advance gradually to 3 times a day. Her stake driver wants to start her on methotrexate or Plaquenil to see if that helps. Recall office visit 03/11/2022: This is 66 year year old female [...] weeks. The patient is here for follow-up stating that her IV infusion therapy and nasal spray now is working great for her in addition the caudal TR helped a lot. 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 We will plan on a caudal TR on her as well (more content not included)... Normal [facility] Bacteria identified Respirat ory culture Nom (Unsp spec)Ordered By: Bonita Acevedo on 06-10-2022 Respiratory Culture Stenotrophomonas maltophilia [facility] Respiratory Culture Streptococcus pneumoniae [facility] Gram stain for investigation of transfusion reactionOrdered By: Bonita Acevedo on 06-05-2022 Microscopic observation Gram stain Nom (Unsp spec) [facility] Absolute lymphocyte countOrd ered By: Dr. French on 2022 Lymphocytes Auto (Unsp spec) [#/Vol] 2.68 10*3/uL 0.83-4.51 [facility] Basophil percentageOrdered B y: Dr. French on 2022 Basophils/100 WBC (Bld) 0.4 % 0-1 [facility] Bilirubin [Mass/Vol] 0.20 mg/dL 0.20-1.00 [facility] Comment on above: For patients on eltr ombopag therapy, use of Dimension Thurmond TBIL is not recommended. Chloride [Moles/Vol] 105 mmol/L 98-107 [facility] Eosinophils/100 WBC (Bld) 1.4 % 0-5 [facility] Glucose [Mass/Vol] 91 mg/dL 74-106 [facility] Neutrophils (Bld) [#/Vol] 6.4 10*3/uL 2.0-7.7 [facility] Neutrophils/100 WBC (Bld) 63.3 % 47-70 [facility] Potassium [Moles/Vol] 4.3 mmol/L 3.5-5.1 [facility] Protein [Mass/Vol] 7.3 g/dL 6.4-8.2 [facility] Sodium [Moles/Vol] 138 mmol/L 136-145 [facility] WBC (Bld) [#/Vol] 10.2 10*3/uL 4.4-11.0 [facility] Blood erythrocytes count (nu mber/volume)Ordered By: Dr. French on 2022 RBC (Bld) [#/Vol] 4.04 10*6/uL 4.2-5.4 [facility] Blood hemoglobin measurement (mass/volume)Ordered By: Dr. French on 2022 Hemoglobin (Bld) [Mass/Vol] 11.5 g/dL 12.0-15.0 [facility] Blood lymphocytes/100 leukoc ytesOrdered By: Dr. French on 2022 Lymphocytes/100 WBC (Bld) 26.4 % 19-41 [facility] Blood monocytes/100 leukocyt esOrdered By: Dr. French on 2022 Monocytes/100 WBC (Bld) 8.2 % 0-10 [facility] Blood platelet mean volumeOr dered By: Dr. French on 2022 Platelet mean volume (Bld) [Entitic vol] 9.7 fL 6.2-12.0 [facility] Determination of erythrocyte mean corpuscular volume (MCV)Ordered By: Dr. French on 2022 MCV (RBC) [Entitic vol] 88.9 fL 81-99 [facility] Erythrocyte sedimentation ra teOrdered By: Dr. French on 2022 ESR (Bld) [Velocity] 36 mm/h 0-30 [facility] Comment on above: Previous reported re sult: 12 mm/hrEdited by: DOLORES on 05/29/22:0721 AMENDED REPORT 05/29/22720 SED RATE previously reported as: 12 mm/hr Hematocrit Auto (Bld) [Volum e fraction]Ordered By: Dr. French on 2022 Hematocrit (Bld) [Volume fraction] 35.9 % 37-47 [facility] Laboratory - Chemistry and C hemistry - challengeOrdered By: Dr. French on 2022 ALP [Catalytic activity/Vol] 94 U/L 45-117 [facility] ALT [Catalytic activity/Vol] 20 U/L 13-56 [facility] CO2 [Moles/Vol] 27.0 mmol/L 21.0-32.0 [facility] Globulin (S) [Mass/Vol] 4.2 g/dL 2.2-4.2 [facility] Urea nitrogen/Creatinine [Mass ratio] 16.4 mg/mg 10-20 [facility] Laboratory - Hematology and Cell countsOrdered By: Dr. French on 2022 Erythrocyte distribution width (RBC) [Entitic vol] 49.6 fL 35.1-43.9 [facility] Erythrocyte distribution width (RBC) [Ratio] 15.3 % 11.6-14.6 [facility] Immature granulocytes/100 WBC (Bld) 0.300 % 0.0-0.9 [facility] Comment on above: IG% - Immature Granu locytes (promyelocytes, myelocytes and metamyelocytes) > 1% indicates that a LEFT SHIFT is Present. MCH (RBC) [Entitic mass] 28.5 pg 27.0-32.0 [facility] Nucleated RBC/100 WBC (Bld) [Ratio] 0 % 0-5 [facility] MCHC Auto (RBC) [Mass/Vol]Or dered By: Dr. French on 2022 MCHC (RBC) [Mass/Vol] 32.0 g/dL 32-36 [facility] No Panel InformationOrdered By: Dr. French on 2022 Estimated GFR (MDRD) Amer 60 mL/min >60 [facility] Comment on above: GFR Calc Estimated GFR (MDRD) Non-Af Amer 50 mL/min >60 [facility] Comment on above: Non- GFR Calc Hepatitis B Surface Antigen Non-Reactive Nonreactive [facility] Hepatitis C Antibody Non-Reactive Nonreactive [facility] Comment on above: Non Reactive: < 0.8 Equivocal: >/= 0.8 to < 1.0 Reactive: >/= 1.0The CDC recommends that a reactive/equivocal HCV antibody result be followed up by the HCV Nucleic Acid Amplificationtest (861741) Platelets bldOrdered By: Dr. French on 2022 Platelets (Bld) [#/Vol] 368 10*3/uL 150-450 [facility] Serum cyclic citrullinated p eptide IgG antibody assay (units/volume)Ordered By: Dr. French on 2022 Cyclic citrullinated peptide IgG Qn 0 units 0-19 [facility] Comment on above: Negative <20 Weak po sitive 20 - 39 Moderate positive 40 - 59 Strong positive >59Performed at: [facility] [place] [id number] Director: Mahamed Martinez PhD, Phone: [phone] Serum hepatitis B virus surf lisa antibody IgG detectionOrdered By: Dr. French on 2022 HBV surface IgG Ql (S) Non-Reactive [facility] Comment on above: Non Reactive: Incons istent with immunity less than <10 mIU/mL Reactive: Consistent with immunity greater than or equal to 10 mIU/mL Serum or plasma C reactive p rotein measurement (mass/volume)Ordered By: Dr. French on 2022 CRP [Mass/Vol] 31.70 mg/L 0.0-3.0 [facility] Comment on above: C-Reactive Protein ( CRP) provides useful information for thediagnosis, therapy and monitoring of inflammatory processesand associated diseases. For the evaluation of Relative Riskfor Cardiovascular Disease, a High Sensitivity CRP (HSCRP)should be ordered. Serum or plasma albumin keli urement (mass/volume)Ordered By: Dr. French on 2022 Albumin [Mass/Vol] 3.1 g/dL 3.2-5.0 [facility] Serum or plasma albumin/glob ulin mass ratioOrdered By: Dr. French on 2022 Albumin/Globulin [Mass ratio] 0.7 {ratio} 0.9-2.4 [facility] Serum or plasma calcium keli urement (mass/volume)Ordered By: Dr. French on 2022 Calcium [Mass/Vol] 8.7 mg/dL 8.5-10.1 [facility] Serum or plasma creatinine m easurement (mass/volume)Ordered By: Dr. French on 2022 Creatinine [Mass/Vol] 1.16 mg/dL 0.55-1.02 [facility] Comment on above: The validity of the calculated GFR & GFRAA in patients over 70 years has not been determined. Clinical correlation is essential. Serum or plasma urea nitroge n measurement (mass/volume)Ordered By: Dr. French on 2022 Urea nitrogen [Mass/Vol] 19 mg/dL 7-18 [facility] Serum rheumatoid factor dete ctionOrdered By: Dr. French on 2022 Rheumatoid factor Ql (S) < 10.0 IU/mL <15 [facility] Thin prep Papanicolaou smear with manual screeningOrdered By: Dr. French on 2022 Thin prep Papanicolaou smear with manual screening 14 U/L 15-37 [facility] Thin prep Papanicolaou smear with manual screening 6 5-15 [facility] Basophil percentageOrdered B y: Dr. Michel on 03-26-2022 Basophil percentage Not Reportable [facility] Erythrocyte sedimentation ra teOrdered By: Dr. Michel on 03-26-2022 ESR (Bld) [Velocity] 34 mm/h 0-30 [facility] No Panel InformationOrdered By: Dr. Michel on 03-26-2022 Anti-Nuclear Antibody Screen Negative Negative [facility] Comment on above: Performed at: [address] [id number] Director: Mahamed Martinez PhD, Phone: [phone] Centrome[employer] B Antibody Not Reportable [facility] [employer] Antibody Not Reportable [facility] Serum DNA double strand anti body assay (units/volume)Ordered By: Dr. Michel on 03-26-2022 DNA double strand Ab Qn (S) Not Reportable [facility] Serum Lissett-1 antibody assay (u nits/volume)Ordered By: Dr. Michel on 03-26-2022 Lissett-1 extractable nuclear Ab Qn (S) Not Reportable [facility] Serum Scl-70 extractable nuc lear antibody assay (units/volume)Ordered By: Dr. Michel on 03-26-2022 SCL-70 extractable nuclear Ab Qn (S) Not Reportable [facility] Serum Shaw extractable nucl ear antibody detectionOrdered By: Dr. Michel on 03-26-2022 Shaw extractable nuclear Ab Ql (S) Not Reportable [facility] Serum cyclic citrullinated p eptide IgG antibody assay (units/volume)Ordered By: Dr. Michel on 03-26-2022 Cyclic citrullinated peptide IgG Qn 2 units 0-19 [facility] Comment on above: Negative <20 Weak po sitive 20 - 39 Moderate positive 40 - 59 Strong positive >59Performed at: [facility] Lab[address] [id number] Director: Cheryl Montelongo MD, Phone: [phone] Serum or plasma C reactive p rotein measurement (mass/volume)Ordered By: Dr. Michel on 03-26-2022 CRP [Mass/Vol] 23.90 mg/L 0.0-3.0 [facility] Comment on above: C-Reactive Protein ( CRP) provides useful information for thediagnosis, therapy and monitoring of inflammatory processesand associated diseases. For the evaluation of Relative Riskfor Cardiovascular Disease, a High Sensitivity CRP (HSCRP)should be ordered. Serum rheumatoid factor dete ctionOrdered By: Dr. Michel on 03-26-2022 Rheumatoid factor Ql (S) < 10.0 IU/mL <15 [facility] Basophil percentageOrdered B y: Dr. Michel on 03-13-2022 Bilirubin [Mass/Vol] 0.30 mg/dL 0.20-1.00 [facility] Comment on above: For patients on eltr ombopag therapy, use of Dimension Thurmond TBIL is not recommended. Chloride [Moles/Vol] 101 mmol/L 98-107 [facility] Glucose [Mass/Vol] 99 mg/dL 74-106 [facility] Potassium [Moles/Vol] 4.8 mmol/L 3.5-5.1 [facility] Protein [Mass/Vol] 7.1 g/dL 6.4-8.2 [facility] Sodium [Moles/Vol] 133 mmol/L 136-145 [facility] Laboratory - Chemistry and C hemistry - challengeOrdered By: Dr. Michel on 03-13-2022 ALP [Catalytic activity/Vol] 88 U/L 45-117 [facility] ALT [Catalytic activity/Vol] 23 U/L 13-56 [facility] CO2 [Moles/Vol] 25.0 mmol/L 21.0-32.0 [facility] Free T4 [Mass/Vol] 0.87 ng/dL 0.76-1.46 [facility] Globulin (S) [Mass/Vol] 4.2 g/dL 2.2-4.2 [facility] Urea nitrogen/Creatinine [Mass ratio] 14.4 mg/mg 10-20 [facility] No Panel InformationOrdered By: Dr. Michel on 03-13-2022 Estimated GFR (MDRD) Amer 55 mL/min >60 [facility] Comment on above: GFR Calc Estimated GFR (MDRD) Non-Af Amer 46 mL/min >60 [facility] Comment on above: Non- GFR Calc Free Triiodothyronine (T3) pg/dL 1.9 pg/mL 2.18-3.98 [facility] Thyroid Stimulating Hormone (TSH) 0.43 uIU/mL 0.358-3.74 [facility] Serum or plasma albumin keli urement (mass/volume)Ordered By: Dr. Michel on 03-13-2022 Albumin [Mass/Vol] 2.9 g/dL 3.2-5.0 [facility] Serum or plasma albumin/glob ulin mass ratioOrdered By: Dr. Michel on 03-13-2022 Albumin/Globulin [Mass ratio] 0.7 {ratio} 0.9-2.4 [facility] Serum or plasma calcium keli urement (mass/volume)Ordered By: Dr. Michel on 03-13-2022 Calcium [Mass/Vol] 8.8 mg/dL 8.5-10.1 [facility] Serum or plasma creatinine m easurement (mass/volume)Ordered By: Dr. Michel on 03-13-2022 Creatinine [Mass/Vol] 1.25 mg/dL 0.55-1.02 [facility] Comment on above: The validity of the calculated GFR & GFRAA in patients over 70 years has not been determined. Clinical correlation is essential. Serum or plasma urea nitroge n measurement (mass/volume)Ordered By: Dr. Michel on 03-13-2022 Urea nitrogen [Mass/Vol] 18 mg/dL 7-18 [facility] Thin prep Papanicolaou smear with manual screeningOrdered By: Dr. Michel on 03-13-2022 Thin prep Papanicolaou smear with manual screening 14 U/L 15-37 [facility] Thin prep Papanicolaou smear with manual screening 7 5-15 [facility] Established Visit (Pain Medi cine)on 03-11-2022 Established Visit (Pain Medicine) Orders Chronic idiopathic pain syndrome MISCELLANEOUS TEST; Status:Active - Retrospective Authorization; Requested for:[id number]; OPIATE/OPIOID/BENZO [EXTENDED] PRESCRIPTION COMPLIANCE; Status:Canceled - Retrospective Authorization; Chief Complaint Pain Patient presented to Pain Management to follow up . Verified patient by name and date of . Patient had and injection on 01/27/2022 Left SI . Patient states that the injection gave them 100 % relief pain 1 1 Amended By: Rubin Dumont; Mar 11 2022 11:01 AM ESTAdult Risk Screening There are no spiritual/cultural practices/values/needs that are important to know1 Initial Fall Risk Screenin CODI has fallen in the last 6 months1 . She has fallen due to she feel out of bed 1 . Her fall resulted in the following injury: yes she had some on her left side of her ribs 1 . CODI has a fear of falling1 . She needs assistance with Power wheel chair1 . Needs assistance walking in her home1 . She needs assistance in an unfamiliar setting1 . The patient is using an assistive device1 . Fall Risk Screening: Patient is identified as a fall risk. Care Plan: High Risk: Low and Moderate risk interventions plus: ensure patient is escorted at all times, do not leave unattended, inform provider of high risk status, discharge by wheelchair or escort assistance, room location, sitter, pre and post sedation/procedure standards, supervised toileting. Altered Mobility: assistive device, physical impairment and unsteady gait. Alteration in Mental Status: no. Relevant Medical History/Diagnosis: Multiple Dx: . Altered Elimination: no. Medications That May Alter Equilibrium: narcotics . polymedication. Sensory Deficit: no. Unable or Unwilling to Follow Directions: no. Low: current pain, age 65 or older and multiple or pertinent current diagnoses. Moderate: fall in last 6 months or fear of falling and unsteady gait/ use of assistive device/apparent weakness or functionally challenged. High: multiple falls within the last 6 months. Pain Scale: On a scale of 0 to 10, the patient rates the pain at 1 01 . Please identify location of pain:1 left hip1 . The pain makes it hard for the patient to do these things:1 sitting , laying down standing up 1 . 1 Amended By: Rubin Dumont; Mar 11 2022 11:03 AM ESTHistory of Present Illness SUBJECTIVE: This is 66 year year old female [...] weeks. The patient is here for follow-up stating that her IV infusion therapy and nasal spray now is working great for her in addition the caudal TR helped a lot. 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 We will plan on a caudal TR on her as well with left-sided intention Recall office visit This is 66 year [...] more than 2 weeks and the nasal spray is not helping much. [...] they may have to change her medications. I am going to start the patient on IV infusion therapy once every 2 weeks since that is the magic number for 4 of them and then will go after that to every 3 weeks hoping that we will give her good relief. Regarding the nasal spray if the patient not responding to it she can stop that. Recall office visit 04/30/2021: This is 65 year year old female. This i (more content not included)... Normal [facility] MISCELLANEOUS TESTon 15- 022 MISCELLANEOUS TEST SEE BELOW [facility] in Management Work Phone: Comment on above: Drug Toxicology Cinthia tor 1, w/Conf, Oral Fluid TEST RESULT REFERENCE RANGEAmphetamines NEGATIVE <10 Barbiturates NEGATIVE <10 Benzodiazepines NEGATIVE <0.50 Buprenorphine NEGATIVE <0.10 Cocaine NEGATIVE <5.0 Fentanyl NEGATIVE <0.10 Heroin Metabolite NEGATIVE <1.0 Marijuana NEGATIVE <2.5 MDMA NEGATIVE <10 Meprobamate NEGATIVE <2.5 Methadone NEGATIVE <5.0 Nicotine Metabolite POSITIVE <5.0 Cotinine 69.5 HIGH <5.0 ng/mL Cotinine is a metabolite of nicotine. Opiates NEGATIVE <2.5 Phencyclidine NEGATIVE <10 Tapentadol NEGATIVE <5.0 Tramadol Interference <5.0 The above test was performed, but the test results could not be interpreted due to non-specific interference. Zolpidem NEGATIVE <5.0 For additional information, please refer to http://education.[employer]/faq/BVA667 (This link is being provided for informational/ educational purposes only.) This drug testing is for medical treatment only. Analysis was performed as non-forensic testing and these results should be used only by healthcare providers to render diagnosis or treatment, or to monitor progress of medical conditions. For assistance with interpreting these drug results, please contact a [facility] Toxicology Specialist: [phone] ( ), M-F, 8am-6pm EST. These tests were developed and their analytical performance characteristics have been determined by [facility]. They have not been cleared or approved by the FDA. These assays have been validated pursuant to the CLIA regulations and are used for clinical purposes. TESTING PERFORMED:[facility] [address] MISCELLANEOUS TEST ORAL FLUID DRUG TESTING [facility] Pain Management Work Phone: Comment on above: no test on req Tobacco Screening.on 022 Fall risk assessment a) No falls within the last year [facility] [place] Work Phone: Tobacco use status [facility] a) Yes M [facility]- [facility] [place] Work Phone: Established Visit (Pain Medi cine)on 02-26-2022 Established Visit (Pain Medicine) No report was sent Normal [facility] No Panel Informationon 01-13 Please click on the link to view the study images Normal [facility] Pain Management Work Phone: Established Visit (Pain Medi cine)on 01-03-2022 Established Visit (Pain Medicine) Diagnoses/Problems Postlaminectomy syndrome of lumbosacral region (722.83) (M96.1) 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 : Postlaminectomy syndrome Xray Lumbosacral Spine Complete (Bending); Status:Hold For - Scheduling; Requested for:[id number]; Radiologist to Determine Optimal Study : Y What are the patient's signs and symptoms? : Postlaminectomy syndrome Chief Complaint Back Pain Hip Pain Patient here to discuss that the infusions are not working as they did . There 3-4 days and she is getting 90% then her pain comes right back . She states her pain his in lower back , effecting the left hip Adult Risk Screening There are no spiritual/cultural practices/values/needs that are important to know Initial Fall Risk Screening: CODI has fallen in the last 6 months. She has fallen due to she feel out of bed . Her fall resulted in the following injury: yes she had some on her left side of her ribs . CODI has a fear of falling. She needs assistance with Power wheel chair. Needs assistance walking in her home. She needs assistance in an unfamiliar setting. The patient is using an assistive device. Fall Risk Screening: Patient is identified as a fall risk. Care Plan: High Risk: Low and Moderate risk interventions plus: ensure patient is escorted at all times, do not leave unattended, inform provider of high risk status, discharge by wheelchair or escort assistance, room location, sitter, pre and post sedation/procedure standards, supervised toileting. Altered Mobility: assistive device, physical impairment and unsteady gait. Alteration in Mental Status: no. Relevant Medical History/Diagnosis: Multiple Dx: . Altered Elimination: no. Medications That May Alter Equilibrium: narcotics . polymedication. Sensory Deficit: no. Unable or Unwilling to Follow Directions: no. Low: current pain, age 65 or older and multiple or pertinent current diagnoses. Moderate: fall in last 6 months or fear of falling and unsteady gait/ use of assistive device/apparent weakness or functionally challenged. High: multiple falls within the last 6 months. Pain Scale: On a scale of 0 to 10, the patient rates the pain at 6. Please identify location of pain: Low back iand left hip. Pain Quality: aching. The pain makes it hard for the patient to do these things: sitting , laying down standing up . 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 We will plan on a caudal TR on her as well with left-sided intention Recall office visit This is 66 year [...] more than 2 weeks and the nasal spray is not helping much. [...] they may have to change her medications. I am going to start the patient on IV infusion therapy once every 2 weeks since that is the magic number for 4 of them and then will go after that to every 3 weeks hoping that we will give her good relief. Regarding the nasal spray if the patient not responding to it she can stop that. Recall office visit 04/30/2021: This is 65 year year old female. This is a virtual visit with Codi who is really doing great with her IV infusion therapy. The patient had tried in the past phys (more content not included)... Normal [place] Screening (Age 18+)on 01-03-2022 Fall risk assessment b) One or more fall s in the last year [facility] [place] Work Phone: Tobacco use status CPHS a) Yes M [facility] [place] Work Phone: No Panel Informationon 01-03 Please click on the link to view the study images Normal [facility] 1 [place] Work Phone: Normal [facility] Work Phone: Radiologyon 01-03-2022 XR Pelvis and Hip - left Views Please click on the link to view the study images Normal -[facility] 1 [place] Work Phone: XR Pelvis and Hip - left Views Normal [facility] Work Phone: Absolute lymphocyte counton 12-26-2021 Lymphocytes Auto (Unsp spec) [#/Vol] 2.75 10*3/uL 0.83-4.51 [facility] Work Phone: Basophil percentageon 2021 Basophils/100 WBC (Bld) 0.7 % 0-1 [facility] Work Phone: Bilirubin [Mass/Vol] 0.20 mg/dL 0.20-1.00 [facility] Work Phone: Comment on above: For patients on eltr ombopag therapy, use of Dimension [place] TBIL is not recommended. Chloride [Moles/Vol] 105 mmol/L 98-107 [facility] Work Phone: Cholesterol [Mass/Vol] 140 mg/dL <[address] [facility] Work Phone: Comment on above: <200 mg/dL Desirable 200-240 mg/dL Borderline >240 mg/dL High Risk Eosinophils/100 WBC (Bld) 2.7 % 0-5 [facility] Work Phone: Glucose [Mass/Vol] 100 mg/dL 74-106 [facility] Work Phone: Comment on above: Fasting Glucose resu lt from 100 to 125 mg/dL suggests IMPAIRED HOMEOSTASIS per A.D.A. criteria. Neutrophils (Bld) [#/Vol] 3.5 10*3/uL 2.0-7.7 [facility] Work Phone: Neutrophils/100 WBC (Bld) 49.9 % 47-70 [facility] Work Phone: Potassium [Moles/Vol] 4.2 mmol/L 3.5-5.1 [facility] Work Phone: Protein [Mass/Vol] 7.2 g/dL 6.4-8.2 [facility] Work Phone: Sodium [Moles/Vol] 139 mmol/L 136-145 [facility] Work Phone: Triglyceride [Mass/Vol] 213 mg/dL <199 [facility] Work Phone: Comment on above: The drugs N-Acetylcy steine and Metamizole may falsely depress this assay.Serum Triglycerides Reference Interval Normal <150 mg/dL Borderline high 150 - 199 mg/dL High 200 - 499 mg/dL Very High > or = 500 mg/dL WBC (Bld) [#/Vol] 7.1 10*3/uL 4.4-11.0 [facility] Work Phone: Blood erythrocytes count (nu mber/volume)on 12-26-2021 RBC (Bld) [#/Vol] 3.96 10*6/uL 4.2-5.4 [facility] Work Phone: Blood hemoglobin measurement (mass/volume)on 12-26-2021 Hemoglobin (Bld) [Mass/Vol] 11.4 g/dL 12.0-15.0 [facility] Work Phone: Blood lymphocytes/100 leukoc yteson 12-26-2021 Lymphocytes/100 WBC (Bld) 38.8 % 19-41 [facility] Work Phone: Blood monocytes/100 leukocyt eson 12-26-2021 Monocytes/100 WBC (Bld) 7.5 % 0-10 [facility] Work Phone: Blood platelet mean volumeon 12-26-2021 Platelet mean volume (Bld) [Entitic vol] 9.4 fL 6.2-12.0 [facility] Work Phone: Determination of erythrocyte mean corpuscular volume (MCV)on 12-26-2021 MCV (RBC) [Entitic vol] 88.4 fL 81-99 [facility] Work Phone: Hematocrit Auto (Bld) [Volum e fraction]on 12-26-2021 Hematocrit (Bld) [Volume fraction] 35.0 % 37-47 [facility] Work Phone: Laboratory - Chemistry and C hemistry - challengeon 12-26-2021 ALP [Catalytic activity/Vol] 91 U/L 45-117 [facility] Work Phone: ALT [Catalytic activity/Vol] 18 U/L 13-56 [facility] Work Phone: CO2 [Moles/Vol] 26.0 mmol/L 21.0-32.0 [facility] Work Phone: Free T4 [Mass/Vol] 0.91 ng/dL 0.76-1.46 [facility] Work Phone: Globulin (S) [Mass/Vol] 3.9 g/dL 2.2-4.2 [facility] Work Phone: Urea nitrogen/Creatinine [Mass ratio] 15.0 mg/mg 10-20 [facility] Work Phone: Laboratory - Hematology and Cell countson 12-26-2021 Erythrocyte distribution width (RBC) [Entitic vol] 44.9 fL 35.1-43.9 [facility] Work Phone: Erythrocyte distribution width (RBC) [Ratio] 14.0 % 11.6-14.6 [facility] Work Phone: Immature granulocytes/100 WBC (Bld) 0.400 % 0.0-0.9 [facility] Work Phone: Comment on above: IG% - Immature Granu locytes (promyelocytes, myelocytes and metamyelocytes) > 1% indicates that a LEFT SHIFT is Present. MCH (RBC) [Entitic mass] 28.8 pg 27.0-32.0 [facility] Work Phone: Nucleated RBC/100 WBC (Bld) [Ratio] 0 % 0-5 [facility] Work Phone: MCHC Auto (RBC) [Mass/Vol]on 12-26-2021 MCHC (RBC) [Mass/Vol] 32.6 g/dL 32-36 [facility] Work Phone: No Panel Informationon 12-26 Estimated GFR (MDRD) Amer 62 mL/min >60 [facility] Work Phone: Comment on above: GFR Calc Estimated GFR (MDRD) Non-Af Amer 51 mL/min >60 [facility] Work Phone: Comment on above: Non- GFR Calc Free Triiodothyronine (T3) pg/dL 1.2 pg/mL 2.18-3.98 [facility] Work Phone: Thyroid Stimulating Hormone (TSH) 0.84 uIU/mL 0.358-3.74 [facility] Work Phone: Platelets bldon 12-26-2021 Platelets (Bld) [#/Vol] 328 10*3/uL 150-450 [facility] Work Phone: Serum or plasma albumin keli urement (mass/volume)on 12-26-2021 Albumin [Mass/Vol] 3.3 g/dL 3.2-5.0 [facility] Work Phone: Serum or plasma albumin/glob ulin mass ratioon 12-26-2021 Albumin/Globulin [Mass ratio] 0.8 {ratio} 0.9-2.4 [facility] Work Phone: Serum or plasma calcium keli urement (mass/volume)on 12-26-2021 Calcium [Mass/Vol] 8.5 mg/dL 8.5-10.1 [facility] Work Phone: Serum or plasma cholesterol in HDL measurement (mass/volume)on 12-26-2021 Cholesterol in HDL [Mass/Vol] 45 mg/dL >40 [facility] Work Phone: Comment on above: The drugs N-Acetylcy steine and Metamizole may falsely depress this assay. Reference Range HDL <40 mg/dL Low HDL Cholesterol HDL >or= 60 mg/dL High HDL Cholesterol Serum or plasma cholesterol in VLDL measurement (mass/volume)on 12-26-2021 Cholesterol in VLDL [Mass/Vol] 43 mg/dL 5-40 [facility] Work Phone: Serum or plasma creatinine m easurement (mass/volume)on 12-26-2021 Creatinine [Mass/Vol] 1.13 mg/dL 0.55-1.02 [facility] Work Phone: Comment on above: The validity of the calculated GFR & GFRAA in patients over 70 years has not been determined. Clinical correlation is essential. Serum or plasma low density lipoprotein (LDL) cholesterol measurement (mass/volume)on 12-26-2021 Cholesterol in LDL [Mass/Vol] 52 mg/dL 0-130 [facility] Work Phone: Serum or plasma urea nitroge n measurement (mass/volume)on 12-26-2021 Urea nitrogen [Mass/Vol] 17 mg/dL 7-18 [facility] Work Phone: Thin prep Papanicolaou smear with manual screeningon 12-26-2021 Thin prep Papanicolaou smear with manual screening 12 U/L 15-37 [facility] Work Phone: Thin prep Papanicolaou smear with manual screening 8 5-15 [facility] Work Phone: Tobacco Screening.on Fall risk assessment b) One or more fall s in the last year [facility] Work Phone: Tobacco use status CPHS a) Yes [facility] Work Phone: Tobacco Screening. Yes [facility] Work Phone: Tobacco Screening. Large [facility] Work Phone: Tobacco Screening.on Fall risk assessment b) One or more fall s in the last year [facility] Work Phone: Tobacco use status CPHS a) Yes [facility] Work Phone: Tobacco Screening. Yes [facility] Work Phone: Tobacco Screening.on Fall risk assessment a) No falls within the last year [facility] Work Phone: Tobacco use status CPHS a) Yes [facility] Work Phone: Tobacco Screening. Yes [facility] Work Phone: Basic Panelon 09-28-2018 Anion gap [Moles/Vol] 12 mmol/L Normal 8-20 [facility] Comment on above: Performed By: #### L P8 #### [place] [address] Calcium [Mass/Vol] 8.8 mg/dL Normal 8.5-10.1 [facility] Comment on above: Performed By: #### L P8 #### [place] [address] CO2 Blood 34 mEq/L High 21-32 [facility] Comment on above: Performed By: #### L P8 #### [place] [address] Creatinine [Mass/Vol] 0.71 mg/dL Normal 0.51-0.95 [facility] Comment on above: Performed By: #### L P8 #### [facility] [address] [place], [place] [address] Glucose [Mass/Vol] 119 mg/dL High 70-99 [facility] Comment on above: Performed By: #### L P8 #### [facility] [address] [place], [place] [address] Urea nitrogen [Mass/Vol] 14 mg/dL Normal 7-18 [facility] Comment on above: Performed By: #### L P8 #### [facility] [address] [place], [place] [address] Urea nitrogen/Creatinine [Mass ratio] 20 mg/mg Normal 10-20 [facility] Comment on above: Performed By: #### L P8 #### [facility] [address] [place], [place] [address] Chloride [Moles/Vol] 99 mmol/L Normal 98-109 [facility] Comment on above: Result Comment: Test ing performed on an [employer] i-STAT. Performed By: #### L P8 #### [facility] [address] [place], [place] [address] Potassium [Moles/Vol] 3.4 mmol/L Low 3.5-4.9 [facility] Comment on above: Result Comment: Test ing performed on an [employer] i-STAT. Performed By: #### L P8 #### [address] [address] Sodium [Moles/Vol] 142 mmol/L Normal 138-146 [facility] Comment on above: Result Comment: Test ing performed on an [employer] i-STAT. Performed By: #### L P8 #### [facility] [address] [place], [place] [address] Hemogram/Manual Diffon 09-28 Abs. Baso 0.00 thou/cmm Normal 0.00-0.08 [facility] Comment on above: Performed By: #### L P8 #### [facility] [address] [place], [place] [address] Abs. Eosin 0.00 thou/cmm Normal 0.00-0.41 [facility] Comment on above: Performed By: #### L P8 #### [facility] [address] [place] [address] Abs. Lymph 4.17 thou/cmm High 1.50-3.65 [facility] Comment on above: Performed By: #### L P8 #### [facility] [address] [place] [address] Abs. Imperial 0.00 thou/cmm Low 0.20-1.00 [facility] Comment on above: Performed By: #### L P8 #### [facility] [address] [place] [address] Abs. Neut (ANC) 10.73 thou/cmm High 3.00-5.67 [facility] Comment on above: Performed By: #### L P8 #### [facility] [address] [place] [address] Anisocytosis Ql (Bld) Slight Normal [facility] Comment on above: Performed By: #### L P8 #### [facility] [address] [place] [address] Basophil 0.0 % Normal [facility] Comment on above: Performed By: #### L P8 #### [facility] [address] [place] [address] Eosinophil 0.0 % Normal [facility] Comment on above: Performed By: #### L P8 #### [place] [address] Lymphocyte 28.0 % Normal [facility] Comment on above: Performed By: #### L P8 #### [facility] [address] [place] [address] Monocyte 0.0 % Normal [facility] Comment on above: Performed By: #### L P8 #### [facility] [address] [place] [address] Platelets (Bld) [#/Vol] Normal Normal [facility] Comment on above: Performed By: #### L P8 #### [place] [address] Polychromasia Slight Normal [facility] Comment on above: Performed By: #### L P8 #### [facility] [address] [place] [address] Seg Neutrophil 72.0 % Normal [facility] Comment on above: Performed By: #### L P8 #### [facility] [address] [place] [address] Toxic Granulation Slight Normal [facility] Comment on above: Performed By: #### L P8 #### [facility] [address] [place] [address] WBC Morphology see below Normal [facility] Comment on above: Result Comment: Toxi c vacuoles present Performed By: #### L P8 #### [facility] [address] [place] [address] Diff Type Manual Diff Normal [facility] Comment on above: Performed By: #### L P8 #### [facility] [address] [place] [address] Erythrocyte distribution width (RBC) [Ratio] 17.0 % High 11.5-15.9 [facility] Comment on above: Performed By: #### L P8 #### [facility] [address] [place] [address] Hematocrit (Bld) [Volume fraction] 35.0 % Low 37.0-47.0 [facility] Comment on above: Performed By: #### L P8 #### [facility] [address] [place] [address] Hemoglobin (Bld) [Mass/Vol] 10.6 g/dL Low 12.0-16.0 [facility] Comment on above: Performed By: #### L P8 #### [facility] [address] [place] [address] MCH (RBC) [Entitic mass] 28.6 pg Normal 27.0-31.0 [facility] Comment on above: Performed By: #### L P8 #### [facility] [address] [place] [address] MCHC (RBC) [Mass/Vol] 30.3 % Low 32.0-36.0 [facility] Comment on above: Performed By: #### L P8 #### [place] [address] MCV (RBC) [Entitic vol] 94.3 fl Normal 81.0-99.0 [facility] Comment on above: Performed By: #### L P8 #### [facility] 1 [place] [id number] Platelet mean volume (Bld) [Entitic vol] 9.5 fl Normal 7.1-10.5 [facility] Comment on above: Performed By: #### L P8 #### [facility] [address] [place] [address] Platelets (Bld) [#/Vol] 436 thou/cmm High 150-400 [facility] Comment on above: Performed By: #### L P8 #### [facility] [address] [place] [address] RBC (Bld) [#/Vol] 3.71 mil/cmm Low 4.20-5.40 [facility] Comment on above: Performed By: #### L P8 #### [place] [address] WBC (Bld) [#/Vol] 14.9 thou/cmm High 4.8-10.5 [facility] Comment on above: Performed By: #### L P8 #### [place] [address] MDRD eGFRon 09-28-2018 GFR/1.73 sq M predicted among non-blacks MDRD (S/P/Bld) [Vol rate/Area] mL/min/{1.73_m2} Normal >60mL/min/1. 73m2 [facility] Comment on above: Result Comment: If t he patient is , multiply the result by 1.210. Performed By: #### L P8 #### [facility] [address] [place] [address] N-terminal Pro-BNPon 019 Natriuretic peptide B (Bld) [Mass/Vol] 115.0 pg/mL Normal [facility] Comment on above: Result Comment: Note new reference range: Normal Reference Range: Patients <75 yrs old <125pg/ml Patients >=75 yrs old <450 pg/ml Performed By: #### L P8 #### [facility] [address] [place] [address] Troponin Ion 09-28-2018 Troponin I.cardiac [Mass/Vol] ng/mL Normal <=0.07 [facility] Comment on above: Performed By: #### L P8 #### [facility] [address] [place] [address] Basic Panelon 08-05-2018 Anion gap [Moles/Vol] 16 mmol/L Normal 8-20 [facility] Comment on above: Performed By: #### L P8 #### [facility] [address] [place] [address] Calcium [Mass/Vol] 9.1 mg/dL Normal 8.5-10.1 [facility] Comment on above: Performed By: #### L P8 #### [place] [address] Chloride [Moles/Vol] 103 mmol/L Normal 98-109 [facility] Comment on above: Result Comment: Test ing performed on an [employer] i-STAT. Performed By: #### L P8 #### [place] [address] CO2 Blood 29 mEq/L Normal 21-32 [facility] Comment on above: Performed By: #### L P8 #### [place] [address] Creatinine [Mass/Vol] 0.67 mg/dL Normal 0.51-0.95 [facility] Comment on above: Performed By: #### L P8 #### [facility] [address] [place] [address] Glucose [Mass/Vol] 129 mg/dL High 70-99 [facility] Comment on above: Performed By: #### L P8 #### [place] [address] Potassium [Moles/Vol] 4.2 mmol/L Normal 3.5-4.9 [facility] Comment on above: Result Comment: Test ing performed on an [employer] i-STAT. Performed By: #### L P8 #### [address] [place], [place] [address] Sodium [Moles/Vol] 144 mmol/L Normal 138-146 [facility] Comment on above: Result Comment: Test ing performed on an [employer] i-STAT. Performed By: #### L P8 #### [facility] [address] [place] [address] Urea nitrogen [Mass/Vol] 13 mg/dL Normal 7-25 [facility] Comment on above: Performed By: #### L P8 #### [facility] [address] [place] [address] Urea nitrogen/Creatinine [Mass ratio] 19 mg/mg Normal 10-20 [facility] Comment on above: Performed By: #### L P8 #### [place] [address] Cult and Smr Respiratoryon 0 08-05-2018 Cult and Smr Respiratory Test performed at [facility] Normal oropharyngeal gera present. Many Gram positive bacilli, diphtheroids Few Gram positive cocci Many Polymorphonuclear leukocytes Few Mononuclear cells Few Squamous epithelial cells Normal [facility] Comment on above: Performed By: #### C _RES #### [place] [address] Hemogramon 08-05-2018 Erythrocyte distribution width (RBC) [Ratio] 16.5 % High 11.5-15.9 [facility] Comment on above: Performed By: #### L CBC #### [place] [address] Hematocrit (Bld) [Volume fraction] 36.8 % Low 37.0-47.0 [facility] Comment on above: Performed By: #### L CBC #### [place] [address] Hemoglobin (Bld) [Mass/Vol] 11.1 g/dL Low 12.0-16.0 [facility] Comment on above: Performed By: #### L CBC #### [place] [address] MCH (RBC) [Entitic mass] 28.7 pg Normal 27.0-31.0 [facility] Comment on above: Performed By: #### L CBC #### [facility] [address] [place], [place] [address] MCHC (RBC) [Mass/Vol] 30.2 % Low 32.0-36.0 [facility] Comment on above: Performed By: #### L CBC #### [facility] [address] [place], [place] [address] MCV (RBC) [Entitic vol] 95.1 fL Normal 81.0-99.0 [facility] Comment on above: Performed By: #### L CBC #### [facility] [address] [place] [address] Platelet mean volume (Bld) [Entitic vol] 9.5 fL Normal 7.1-10.5 [facility] Comment on above: Performed By: #### L CBC #### [facility] [address] [place] [address] Platelets (Bld) [#/Vol] 367 thou/cmm Normal 150-400 [facility] Comment on above: Performed By: #### L CBC #### [facility] [address] [place] [address] RBC (Bld) [#/Vol] 3.87 mil/cmm Low 4.20-5.40 [facility] Comment on above: Performed By: #### L CBC #### [facility] [address] [place] [address] WBC (Bld) [#/Vol] 10.6 thou/cmm Normal 4.8-10.8 [facility] Comment on above: Performed By: #### L CBC #### [facility] [address] [place], [place] [address] MDRD eGFRon 08-05-2018 GFR/1.73 sq M predicted among non-blacks MDRD (S/P/Bld) [Vol rate/Area] mL/min/{1.73_m2} Normal >60mL/min/1. 73m2 [facility] Comment on above: Result Comment: If t he patient is , multiply the result by 1.210. Performed By: #### L GFR #### [facility] [address] [place] [id number] N-terminal Pro-BNPon 019 Natriuretic peptide B (Bld) [Mass/Vol] 216.0 pg/mL Normal [facility] Comment on above: Result Comment: Acut e CHF Rule-in <50 yrs old >= 450 pg/ml >50 yrs old >= 900 pg/ml Abnormal Pro-BNP All patients >=300 pg/ml Performed By: #### L PBNP #### [facility] [address] [place] [id number] Protimeon 08-05-2018 INR Coag (PPP) [Relative time] 0.95 {INR} Normal 0.90-1.30 [facility] Comment on above: Result Comment: Note : Reference Range Change Vitamin K Antagonist (VKA) Therapeutic Range: INR 2 to 3 (Target INR of 2.5) Note: For patients treated with VKA drugs, such as warfarin, the [employer] [place] [employer] 2012 Guideline recommends a therapeutic INR range of 2 to 3 (target INR of 2.5). This recommendation includes high-risk patients with antiphospholipid syndrome with previous arterial or venous thromboembolism, current-generation mechanical or bioprosthetic aortic heart valve replacement. VKA Therapeutic Range for some Mechanical Valve Replacement: INR 2.5 to 3.5 (Target INR of 3) Note: Patients with mechanical aortic valve replacement and additional risk factors for thromboembolic events (atrial fibrillation, previous thromboembolism, LV dysfunction, hypercoagulable conditions) or an older generation mechanical AVR (i.e., ball in-Cage) or any mechanical MVR should have a INR therapeutic range of 2.5 to 3.5 target INR of 3). Avani GH, et al. Chest 2012; 141:7S-47S Manda RA et al. JACC 2017; 70: 252-289 Performed By: #### L PT #### [facility] [address] [place] [id number] PT Coag (PPP) [Time] 9.7 s Normal 9.7-13.0 [facility] [facility] Comment on above: Result Comment: . Performed By: #### L PT #### [facility] [address] [place] [id number] Rapid Influenza A/Bon 2018 Rapid Influenza A/B See below Normal Negative [facility] Comment on above: Result Comment: Nega tive for influenza A and B. Performed By: #### L RFLU #### [place] [address] Troponin Ion 08-05-2018 Troponin I.cardiac [Mass/Vol] ng/mL Normal <=0.07 [facility] Comment on above: Performed By: #### L TRP #### [place] [address] Urinalysis Routineon 019 Bacteria LM.HPF (Urine sed) [#/Area] MANY Abnormal None [facility] Comment on above: Performed By: #### L URIN #### [place] [address] Ep Cells Urine 2-5 Normal 0-5 [facility] Comment on above: Performed By: #### L URIN #### [place] [address] RBC LM.HPF (Urine sed) [#/Area] 4-6 Abnormal 0-3 [facility] Comment on above: Performed By: #### L URIN #### [place] [address] WBC LM.HPF (Urine sed) [#/Area] 21-35 Abnormal 0-5 [facility] Comment on above: Performed By: #### L URIN #### [place] [address] Appearance (U) 2+ (SLT CLOUDY) Normal [facility] Comment on above: Performed By: #### L URIN #### [place] [address] Bilirubin Urine Negative Normal Negative [facility] Comment on above: Performed By: #### L URIN #### [place] [address] Color (U) YELLOW Normal [facility] Comment on above: Performed By: #### L URIN #### [place] [address] Glucose Ql (U) Negative Normal Negative [facility] Comment on above: Performed By: #### L URIN #### [facility] [address] [place] [address] Hemoglobin,Urine 1+ Abnormal Negative [facility] Comment on above: Performed By: #### L URIN #### [facility] [address] [place] [address] Ketone Urine Negative Normal Negative [facility] Comment on above: Performed By: #### L URIN #### [facility] [address] [address] Leukocytes Esterase TRACE Abnormal Negative [facility] Comment on above: Performed By: #### L URIN #### [facility] [address] [place] [address] Nitrites Urine Positive Abnormal Negative [facility] Comment on above: Performed By: #### L URIN #### [place] [address] pH (U) 6.0 [pH] Normal 5.0-8.0 [facility] Comment on above: Performed By: #### L URIN #### [place] [address] Protein (U) [Mass/Vol] Negative Normal Negative [facility] Comment on above: Performed By: #### L URIN #### [place] [address] Specific [place], Ur 1.025 Normal 1.005-1.030 [facility] Comment on above: Performed By: #### L URIN #### [place] [address] Urobilinogen,Ur 0.2 EU/dL Normal 0.0-1.0 [facility] Comment on above: Performed By: #### L URIN #### [place] [address] Vital Signs Date Time Vital Sign Value Performing Clinician Facility 02-21-2025 09:43-0400 Body height 147.3 cm Baljinder Rodrigues MD Work Phone: [facility] 02-21-2025 09:43-0400 Body mass index (BMI) [Ratio] 17.85 kg/m2 Baljinder Rodrigues MD Work Phone: [employer] 02-21-2025 09:43-0400 Body temperature 97.11 [degF] Baljinder Rodrigues MD Work Phone: [employer] 02-21-2025 09:43-0400 Body weight 38.74 kg Baljinder Rodrigues MD Work Phone: [employer] 02-21-2025 09:43-0400 Diastolic blood pressure 53 mm[Hg] Baljinder Rodrigues MD Work Phone: [employer] 02-21-2025 09:43-0400 Heart rate 73 /min Baljinder Rodrigues MD Work Phone: [employer] 02-21-2025 09:43-0400 SaO2% (BldA) [Mass fraction] 94 % Baljinder Rodrigues MD Work Phone: [employer] 02-21-2025 09:43-0400 Systolic blood pressure 102 mm[Hg] Baljinder Rodrigues MD Work Phone: [employer] 12-02-2024 10:25-0400 Body height 147.3 cm Baljinder Rodrigues MD Work Phone: [employer] 12-02-2024 10:25-0400 Body mass index (BMI) [Ratio] 20.9 kg/m2 Baljinder Rodrigues MD Work Phone: [employer] 12-02-2024 10:25-0400 Body temperature 97.81 [degF] Baljinder Rodrigues MD Work Phone: [employer] 12-02-2024 10:25-0400 Body weight 45.36 kg Baljinder Rodrigues MD Work Phone: [employer] 12-02-2024 10:25-0400 Diastolic blood pressure 58 mm[Hg] Baljinder Rodrigues MD Work Phone: [employer] 12-02-2024 10:25-0400 Heart rate 66 /min Baljinder Rodrigues MD Work Phone: [facility] [employer] 12-02-2024 10:25-0400 SaO2% (BldA) [Mass fraction] 100 % Baljinder Rodrigues MD Work Phone: [facility] [employer] 12-02-2024 10:25-0400 Systolic blood pressure 98 mm[Hg] Baljinder Rodrigues MD Work Phone: [facility] 12-01-2024 11:14-0400 Body height 147.3 cm Vanna Hendricks MD Work Phone: [facility] 12-01-2024 11:14-0400 Body mass index (BMI) [Ratio] 20.9 kg/m2 Vanna Hendricks MD Work Phone: [facility] 12-01-2024 11:14-0400 Body temperature 96.8 [degF] Vanna Hendricks MD Work Phone: [facility] 12-01-2024 11:14-0400 Body weight 45.36 kg Vanna Hendricks MD Work Phone: [facility] 12-01-2024 11:14-0400 Diastolic blood pressure 54 mm[Hg] Vanna Hendricks MD Work Phone: [facility] 12-01-2024 11:14-0400 Heart rate 81 /min Vanna Hendricks MD Work Phone: [facility] 12-01-2024 11:14-0400 Respiratory rate 18 /min Vanna Hendricks MD Work Phone: [facility] 12-01-2024 11:14-0400 SaO2% (BldA) [Mass fraction] 91 % Vanna Hendricks MD Work Phone: [facility] 12-01-2024 11:14-0400 Systolic blood pressure 89 mm[Hg] Vanna Hendricks MD Work Phone: [facility] 11-22-2024 07:24-0400 Body height 147.3 cm Beau Maldonado OPERATIONS ASSISTANT-[employer] Work Phone: [facility] 11-22-2024 07:24-0400 Body mass index (BMI) [Ratio] 21.4 kg/m2 Beau Maldonado OPERATIONS ASSISTANT-[employer] Work Phone: [facility] 11-22-2024 07:24-0400 Body temperature 95.7 [degF] Beau Maldonado OPERATIONS ASSISTANT-[employer] Work Phone: [facility] 11-22-2024 07:24-0400 Body weight 46.45 kg Beau Maldonado OPERATIONS ASSISTANT-[employer] Work Phone: [facility] 11-22-2024 07:24-0400 Diastolic blood pressure 72 mm[Hg] Beau Maldonado OPERATIONS ASSISTANT-[employer] Work Phone: [facility] 11-22-2024 07:24-0400 Heart rate 54 /min Beau Maldonado OPERATIONS ASSISTANT-[employer] Work Phone: [facility] 11-22-2024 07:24-0400 SaO2% (BldA) [Mass fraction] 92 % Beau Maldonado OPERATIONS ASSISTANT-[employer] Work Phone: [facility] 11-22-2024 07:24-0400 Systolic blood pressure 101 mm[Hg] Beau Maldonado OPERATIONS ASSISTANT-[employer] Work Phone: [facility] 06-28-2024 09:25-0500 Body height 149.9 cm Beau Maldonado OPERATIONS ASSISTANT-[employer] Work Phone: [facility] 06-28-2024 09:25-0500 Body mass index (BMI) [Ratio] 19.59 kg/m2 Beau Maldonado OPERATIONS ASSISTANT-[employer] Work Phone: [facility] 06-28-2024 09:25-0500 Body temperature 96.1 [degF] Beau Maldonado OPERATIONS ASSISTANT-[employer] Work Phone: [facility] 06-28-2024 09:25-0500 Body weight 44 kg Beregina Goy OPERATIONS ASSISTANT-[employer] Work Phone: [facility] 06-28-2024 09:25-0500 Diastolic blood pressure 65 mm[Hg] Beau Maldonado OPERATIONS ASSISTANT-[employer] Work Phone: [facility] 06-28-2024 09:25-0500 Heart rate 66 /min Beau Maldonado OPERATIONS ASSISTANT-[employer] Work Phone: [facility] 06-28-2024 09:25-0500 Respiratory rate 10 /min Beau Maldonado OPERATIONS ASSISTANT-[employer] Work Phone: [facility] 06-28-2024 09:25-0500 SaO2% (BldA) [Mass fraction] 92 % Beau Madlonado OPERATIONS ASSISTANT-[employer] Work Phone: [facility] 06-28-2024 09:25-0500 Systolic blood pressure 115 mm[Hg] Beau Maldonado OPERATIONS ASSISTANT-[employer] Work Phone: [facility] 06-07-2024 10:02-0500 Body temperature 97.9 [degF] Randal Sykes MD Work Phone: [facility] 06-07-2024 10:02-0500 Diastolic blood pressure 66 mm[Hg] Randal Sykes MD Work Phone: [facility] 06-07-2024 10:02-0500 Heart rate 86 /min Randal Sykes MD Work Phone: [facility] 06-07-2024 10:02-0500 Respiratory rate 16 /min Randal Sykes MD Work Phone: [facility] 06-07-2024 10:02-0500 SaO2% (BldA) [Mass fraction] 91 % Randal Sykes MD Work Phone: [facility] 06-07-2024 10:02-0500 Systolic blood pressure 146 mm[Hg] Randal Sykes MD Work Phone: [facility] 06-04-2024 21:19-0500 Body height 144.8 cm Randal Sykes MD Work Phone: [facility] 06-04-2024 21:19-0500 Body mass index (BMI) [Ratio] 23.95 kg/m2 Randal Sykes MD Work Phone: [facility] 06-04-2024 21:19-0500 Body weight 50.2 kg Randal Sykes MD Work Phone: [facility] 06-04-2024 17:24-0500 Body temperature Randal Sykes MD Work Phone: [facility] Comment on above: NOTE: Patient Results are Not Corrected for Temperature 06-04-2024 17:16-0500 Body temperature [facility] Comment on above: Result Comment: NOTE: Patient Results ar e Not Corrected for Temperature Performed By: #### 2 [id number] #### FIDEL Hutchinson ([id number]) [facility] ([facility] [address] [place] [address] 03-02-2024 13:13-0500 Body height 147.3 cm Ricardo Sanchezo [employer] Work Phone: [facility] 03-02-2024 13:13-0500 Body mass index (BMI) [Ratio] 24.45 kg/m2 Fanmartínei Juliann DO Work Phone: [facility] 03-02-2024 13:13-0500 Body weight 53.07 kg Fanmartínei Juliann DO Work Phone: [facility] 03-02-2024 13:13-0500 Diastolic blood pressure 59 mm[Hg] Fanmartínei Juliann DO Work Phone: [facility] 03-02-2024 13:13-0500 Heart rate 72 /min Faningrid Juliann DO Work Phone: [facility] 03-02-2024 13:13-0500 SaO2% (BldA) [Mass fraction] 91 % Ricardo Daniels DO Work Phone: [facility] 03-02-2024 13:13-0500 Systolic blood pressure 92 mm[Hg] Ricardo Daniels DO Work Phone: [facility] 10-02-2023 11:22-0400 Body height 147.3 cm Vanna Hendricks MD Work Phone: [facility] 10-02-2023 11:22-0400 Body mass index (BMI) [Ratio] 26.96 kg/m2 Vanna Hendricks MD Work Phone: [facility] 10-02-2023 11:22-0400 Body temperature 99 [degF] Vanna Hendricks MD Work Phone: [facility] 10-02-2023 11:22-0400 Body weight 58.51 kg Vanna Hendricks MD Work Phone: [facility] Comment on above: Per patient 10-02-2023 11:22-0400 Diastolic blood pressure 61 mm[Hg] Vanna Hendricks MD Work Phone: [facility] 10-02-2023 11:22-0400 Heart rate 71 /min Vanna Hendricks MD Work Phone: [facility] 10-02-2023 11:22-0400 Respiratory rate 16 /min Vanna Hendricks MD Work Phone: [facility] 10-02-2023 11:22-0400 SaO2% (BldA) [Mass fraction] 90 % Vanna Hendricks MD Work Phone: [facility] Comment on above: Patient states she wears 4 L of oxygen a t night with her CPAP machine 10-02-2023 11:22-0400 Systolic blood pressure 123 mm[Hg] Vanna Hendricks MD Work Phone: [facility] 08-07-2023 09:40-0400 Body height 149.[address] Errol Michel Work Phone: [facility] 08-07-2023 09:40-0400 Body mass index (BMI) [Ratio] 28 kg/m2 Dr. Errol Michel Work Phone: [facility] 08-07-2023 09:40-0400 Body temperature 97 [degF] Dr. Errol Michel Work Phone: [facility] 08-07-2023 09:40-0400 Body weight 63.[address] Errol Michel Work Phone: [facility] 08-07-2023 09:40-0400 Diastolic blood pressure 40 mm[Hg] Dr. Errol Michel Work Phone: [facility] 08-07-2023 09:40-0400 Heart rate 57 /min Dr. Errol Michel Work Phone: [facility] 08-07-2023 09:40-0400 Respiratory rate 16 /min Dr. Errol Michel Work Phone: [facility] 08-07-2023 09:40-0400 SaO2% (BldA) [Mass fraction] 94 % Dr. Errol Michel Work Phone: [facility] 08-07-2023 09:40-0400 Systolic blood pressure 74 mm[Hg] Dr. Errol Michel Work Phone: [facility] 05-19-2023 08:34-0500 Body height 144.8 cm Vanna Hendricks MD Work Phone: [facility] 05-19-2023 08:34-0500 Body mass index (BMI) [Ratio] 30.08 kg/m2 Vanna Hendricks MD Work Phone: [facility] 05-19-2023 08:34-0500 Body temperature 96.3 [degF] Vanna Hendricks MD Work Phone: [facility] 05-19-2023 08:34-0500 Body weight 63.05 kg Vanna Hendricks MD Work Phone: [facility] 05-19-2023 08:34-0500 Diastolic blood pressure 58 mm[Hg] Vanna Hendricks MD Work Phone: [facility] 05-19-2023 08:34-0500 Heart rate 65 /min Vanna Hendricks MD Work Phone: [facility] 05-19-2023 08:34-0500 Respiratory rate 16 /min Vanna Hendricks MD Work Phone: [facility] 05-19-2023 08:34-0500 Systolic blood pressure 109 mm[Hg] Vanna Hendricks MD Work Phone: [facility] 05-06-2023 13:00-0500 Body temperature 98.7 [degF] Dr. Errol Michel Work Phone: [facility] 05-06-2023 13:00-0500 Diastolic blood pressure 63 mm[Hg] Dr. Errol Michel Work Phone: [facility] 05-06-2023 13:00-0500 Heart rate 76 /min Dr. Errol Michel Work Phone: [facility] 05-06-2023 13:00-0500 Inhaled oxygen flow rate 4 L/min Dr. Errol Michel Work Phone: [facility] 05-06-2023 13:00-0500 Respiratory rate 18 /min Dr. Errol Michel Work Phone: [facility] 05-06-2023 13:00-0500 SaO2% (BldA) [Mass fraction] 95 % Dr. Errol Michel Work Phone: [facility] 05-06-2023 13:00-0500 Systolic blood pressure 129 mm[Hg] Dr. Errol Michel Work Phone: [facility] 05-05-2023 12:48-0500 Body height 149.[address] Errol Michel Work Phone: [facility] 05-05-2023 12:48-0500 Body mass index (BMI) [Ratio] 27 kg/m2 Dr. Errol Michel Work Phone: [facility] 05-05-2023 12:48-0500 Body weight 60.[address] Errol Michel Work Phone: [facility] 05-04-2023 23:24-0500 Inhaled oxygen concentration 4 % Dr. Errol Michel Work Phone: [facility] 05-03-2023 13:07-0500 Diastolic blood pressure 61 mm[Hg] Dr. Errol Michel Work Phone: [facility] 05-03-2023 13:07-0500 Heart rate 101 /min Dr. Errol Michel Work Phone: [facility] 05-03-2023 13:07-0500 Respiratory rate 19 /min Dr. Errol Michel Work Phone: [facility] 05-03-2023 13:07-0500 SaO2% (BldA) [Mass fraction] 97 % Dr. Errol Michel Work Phone: [facility] 05-03-2023 13:07-0500 Systolic blood pressure 115 mm[Hg] Dr. Errol Michel Work Phone: [facility] 05-03-2023 10:35-0500 Inhaled oxygen flow rate 2 L/min Dr. Errol Michel Work Phone: [facility] 05-03-2023 09:53-0500 Body temperature 97.6 [degF] Dr. Errol Michel Work Phone: [facility] 05-03-2023 08:07-0500 Body height 144.[address] Errol Michel Work Phone: [facility] 05-03-2023 08:07-0500 Body mass index (BMI) [Ratio] 31.4 kg/m2 Dr. Errol Michel Work Phone: [facility] 05-03-2023 08:07-0500 Body weight 65.[address] Errol Michel Work Phone: [facility] 03-30-2023 15:16-0500 Body temperature 97.8 [degF] Dr. Errol Michel Work Phone: [facility] 03-30-2023 15:16-0500 Diastolic blood pressure 58 mm[Hg] Dr. Errol Michel Work Phone: [facility] 03-30-2023 15:16-0500 Heart rate 87 /min Dr. Errol Michel Work Phone: [facility] 03-30-2023 15:16-0500 Respiratory rate 17 /min Dr. Errol Michel Work Phone: [facility] 03-30-2023 15:16-0500 SaO2% (BldA) [Mass fraction] 94 % Dr. Errol Michel Work Phone: [facility] 03-30-2023 15:16-0500 Systolic blood pressure 106 mm[Hg] Dr. Errol Michel Work Phone: [facility] 03-30-2023 13:05-0500 Body height 152.[address] Errol Michel Work Phone: [facility] 03-30-2023 13:05-0500 Body weight 66.[address] Errol Michel Work Phone: [facility] 03-30-2023 10:46-0500 Inhaled oxygen flow rate 3 L/min Dr. Errol Michel Work Phone: [facility] 03-29-2023 18:59-0500 Body mass index (BMI) [Ratio] 28.4 kg/m2 Dr. Errol Michel Work Phone: [facility] 03-29-2023 18:05-0500 Body temperature 98 [degF] Dr. Errol Michel Work Phone: [facility] 03-29-2023 18:05-0500 Diastolic blood pressure 68 mm[Hg] Dr. Errol Michel Work Phone: [facility] 03-29-2023 18:05-0500 Heart rate 83 /min Dr. Errol Michel Work Phone: [facility] 03-29-2023 18:05-0500 Inhaled oxygen flow rate 4 L/min Dr. Errol Michel Work Phone: [facility] 03-29-2023 18:05-0500 Respiratory rate 18 /min Dr. Errol Michel Work Phone: [facility] 03-29-2023 18:05-0500 SaO2% (BldA) [Mass fraction] 95 % Dr. Errol Michel Work Phone: [facility] 03-29-2023 18:05-0500 Systolic blood pressure 122 mm[Hg] Dr. Errol Michel Work Phone: [facility] 03-29-2023 13:45-0500 Body height 145.[address] Errol Michel Work Phone: [facility] 03-29-2023 13:45-0500 Body mass index (BMI) [Ratio] 68.6 kg/m2 Dr. Errol Michel Work Phone: [facility] 03-29-2023 13:45-0500 Body weight 144.[address] Errol Michel Work Phone: [facility] 03-11-2023 09:05-0500 Body temperature 98.2 [degF] Dr. Errol Michel Work Phone: [facility] 03-11-2023 09:05-0500 Diastolic blood pressure 55 mm[Hg] Dr. Errol Michel Work Phone: [facility] 03-11-2023 09:05-0500 Heart rate 58 /min Dr. Errol Michel Work Phone: [facility] 03-11-2023 09:05-0500 Respiratory rate 16 /min Dr. Errol Michel Work Phone: [facility] 03-11-2023 09:05-0500 SaO2% (BldA) [Mass fraction] 95 % Dr. Errol Michel Work Phone: [facility] 03-11-2023 09:05-0500 Systolic blood pressure 101 mm[Hg] Dr. Errol Michel Work Phone: [facility] 03-03-2023 07:56-0500 Body temperature 97.9 [degF] Vanna Hendricks MD Work Phone: [facility] 03-03-2023 07:56-0500 Diastolic blood pressure 61 mm[Hg] Vanna Hendricks MD Work Phone: [facility] 03-03-2023 07:56-0500 Heart rate 66 /min Vanna Hendricks MD Work Phone: [facility] 03-03-2023 07:56-0500 Respiratory rate 16 /min Vanna Hendricks MD Work Phone: [facility] 03-03-2023 07:56-0500 SaO2% (BldA) [Mass fraction] 91 % Vanna Hendricks MD Work Phone: [facility] 03-03-2023 07:56-0500 Systolic blood pressure 113 mm[Hg] Vanna Hendricks MD Work Phone: [facility] 12-09-2022 08:12-0400 Body temperature 97.16 [degF] Errol Michel Work Phone: [facility] [place] Work Phone: 12-09-2022 08:12-0400 Diastolic blood pressure 56 mm[Hg] Errol Michel Work Phone: [facility] [place] Work Phone: 12-09-2022 08:12-0400 Heart rate 66 /min Errol Michel Work Phone: [facility] [place] Work Phone: 12-09-2022 08:12-0400 Respiratory rate 18 /min Errol Michel Work Phone: [facility] [place] Work Phone: 12-09-2022 08:12-0400 SaO2% (BldA) [Mass fraction] 95 % Errol Michel Work Phone: [facility] [place] Work Phone: 12-09-2022 08:12-0400 Systolic blood pressure 91 mm[Hg] Errol Michel Work Phone: [facility] [place] Work Phone: 12-02-2022 05:42-0400 Body height 144.[address] Errol Michel Work Phone: [facility] 12-02-2022 05:42-0400 Body temperature 97.6 [degF] Dr. Errol Michel Work Phone: [facility] 12-02-2022 05:42-0400 Diastolic blood pressure 56 mm[Hg] Dr. Errol Michel Work Phone: [facility] 12-02-2022 05:42-0400 Heart rate 73 /min Dr. Errol Michel Work Phone: [facility] 12-02-2022 05:42-0400 Respiratory rate 20 /min Dr. Errol Michel Work Phone: [facility] 12-02-2022 05:42-0400 SaO2% (BldA) [Mass fraction] 99 % Dr. Errol Michel Work Phone: [facility] 12-02-2022 05:42-0400 Systolic blood pressure 91 mm[Hg] Dr. Errol Michel Work Phone: [facility] 09-24-2022 07:42-0400 Body height 144.[address] Errol Michel Work Phone: [facility] 09-24-2022 07:42-0400 Body temperature 97.8 [degF] Dr. Errol Michel Work Phone: [facility] 09-24-2022 07:42-0400 Diastolic blood pressure 60 mm[Hg] Dr. Errol Michel Work Phone: [facility] 09-24-2022 07:42-0400 Heart rate 63 /min Dr. Errol Michel Work Phone: [facility] 09-24-2022 07:42-0400 Inhaled oxygen flow rate 4 L/min Dr. Errol Michel Work Phone: [facility] 09-24-2022 07:42-0400 Respiratory rate 18 /min Dr. Errol Michel Work Phone: [facility] 09-24-2022 07:42-0400 SaO2% (BldA) [Mass fraction] 97 % Dr. Errol Michel Work Phone: [facility] 09-24-2022 07:42-0400 Systolic blood pressure 100 mm[Hg] Dr. Errol Michel Work Phone: [facility] 09-06-2022 14:34-0400 Body temperature 98.2 [degF] Dr. Errol Michel Work Phone: [facility] 09-06-2022 14:34-0400 Diastolic blood pressure 65 mm[Hg] Dr. Errol Michel Work Phone: [facility] 09-06-2022 14:34-0400 Heart rate 84 /min Dr. Errol Michel Work Phone: [facility] 09-06-2022 14:34-0400 Inhaled oxygen flow rate 4 L/min Dr. Errol Michel Work Phone: [facility] 09-06-2022 14:34-0400 Respiratory rate 14 /min Dr. Errol Michel Work Phone: [facility] 09-06-2022 14:34-0400 SaO2% (BldA) [Mass fraction] 93 % Dr. Errol Michel Work Phone: [facility] 09-06-2022 14:34-0400 Systolic blood pressure 119 mm[Hg] Dr. Errol Michel Work Phone: [facility] 09-06-2022 05:14-0400 Inhaled oxygen concentration 35 % Dr. Errol Michel Work Phone: [facility] 09-06-2022 03:26-0400 Body mass index (BMI) [Ratio] 33.4 kg/m2 Dr. Errol Michel Work Phone: [facility] 09-06-2022 03:26-0400 Body weight 70.[address] Errol Michel Work Phone: [facility] 08-26-2022 11:17-0400 Heart rate 97 /min Dr. Errol Michel Work Phone: [facility] 08-26-2022 11:17-0400 Inhaled oxygen flow rate 11 L/min Dr. Errol Michel Work Phone: [facility] 08-26-2022 11:17-0400 Respiratory rate 20 /min Dr. Errol Michel Work Phone: [facility] 08-26-2022 11:17-0400 SaO2% (BldA) [Mass fraction] 96 % Dr. Errol Michel Work Phone: [facility] 08-26-2022 08:32-0400 Inhaled oxygen concentration 55 % Dr. Errol Michel Work Phone: [facility] 08-26-2022 06:32-0400 Body temperature 98.1 [degF] Dr. Errol Michel Work Phone: [facility] 08-26-2022 06:32-0400 Diastolic blood pressure 57 mm[Hg] Dr. Errol Michel Work Phone: [facility] 08-26-2022 06:32-0400 Systolic blood pressure 130 mm[Hg] Dr. Errol Michel Work Phone: [facility] 08-26-2022 04:16-0400 Body mass index (BMI) [Ratio] 34.4 kg/m2 Dr. Errol Michel Work Phone: [facility] 08-26-2022 04:16-0400 Body weight 72.[address] Errol Michel Work Phone: [facility] 08-25-2022 16:37-0400 Body height 144.[address] Errol Michel Work Phone: [facility] 08-23-2022 20:53-0400 Body temperature 97.9 [degF] Dr. Errol Michel Work Phone: [facility] 08-23-2022 20:53-0400 Diastolic blood pressure 98 mm[Hg] Dr. Errol Michel Work Phone: [facility] 08-23-2022 20:53-0400 Heart rate 92 /min Dr. Errol Michel Work Phone: [facility] 08-23-2022 20:53-0400 Respiratory rate 29 /min Dr. Errol Michel Work Phone: [facility] 08-23-2022 20:53-0400 SaO2% (BldA) [Mass fraction] 91 % Dr. Errol Michel Work Phone: [facility] 08-23-2022 20:53-0400 Systolic blood pressure 178 mm[Hg] Dr. Errol Michel Work Phone: [facility] 08-23-2022 19:45-0400 Inhaled oxygen concentration 75 % Dr. Errol Michel Work Phone: [facility] 08-23-2022 19:11-0400 Inhaled oxygen flow rate 4 L/min Dr. Errol Michel Work Phone: [facility] 08-23-2022 16:22-0400 Body height 149.[address] Errol Michel Work Phone: [facility] 08-23-2022 16:22-0400 Body mass index (BMI) [Ratio] 32.9 kg/m2 Dr. Errol Michel Work Phone: [facility] 08-23-2022 16:22-0400 Body weight 73.[address] Errol Michel Work Phone: [facility] 06-03-2022 09:20-0500 Body height 149.[address] Errol Michel Work Phone: [facility] 06-03-2022 09:20-0500 Body mass index (BMI) [Ratio] 32.5 kg/m2 Dr. Errol Michel Work Phone: [facility] 06-03-2022 09:20-0500 Body temperature 97.2 [degF] Dr. Errol Michel Work Phone: [facility] 06-03-2022 09:20-0500 Body weight 73.[address] Errol Michel Work Phone: [facility] 06-03-2022 09:20-0500 Diastolic blood pressure 55 mm[Hg] Dr. Errol Michel Work Phone: [facility] 06-03-2022 09:20-0500 Respiratory rate 18 /min Dr. Errol Michel Work Phone: [facility] 06-03-2022 09:20-0500 SaO2% (BldA) [Mass fraction] 99 % Dr. Errol Michel Work Phone: [facility] 06-03-2022 09:20-0500 Systolic blood pressure 93 mm[Hg] Dr. Errol Michel Work Phone: [facility] 03-11-2022 08:19-0500 Body height 149.86 cm Errol Michel Work Phone: [facility] [place] Work Phone: 03-11-2022 08:19-0500 Body mass index (BMI) [Ratio] 30.3 kg/m2 Errol Eastmanangus Work Phone: [facility] [place] Work Phone: 03-11-2022 08:19-0500 Body surface area Derived from formula 1.63 m2 Errol Michel Work Phone: [facility] [place] Work Phone: 03-11-2022 08:19-0500 Body temperature 97.52 [degF] Errol Eastmanangus Work Phone: [facility] [place] Work Phone: 03-11-2022 08:19-0500 Body weight 68.04 kg Errol Eastmanangus Work Phone: [facility] [place] Work Phone: 03-11-2022 08:19-0500 Diastolic blood pressure 59 mm[Hg] Errol Michel Work Phone: [facility] [place] Work Phone: 03-11-2022 08:19-0500 Heart rate 71 /min Errol Michel Work Phone: [facility] [place] Work Phone: 03-11-2022 08:19-0500 Respiratory rate 18 /min Errol Michel Work Phone: [facility] [place] Work Phone: 03-11-2022 08:19-0500 SaO2% (BldA) [Mass fraction] 93 % Errol Michel Work Phone: [facility] [place] Work Phone: 03-11-2022 08:19-0500 Systolic blood pressure 100 mm[Hg] Errol Michel Work Phone: [facility] [place] Work Phone: 01-03-2022 08:12-0400 Body height 149.86 cm Errol Michel Work Phone: [facility] [place] Work Phone: 01-03-2022 08:12-0400 Body mass index (BMI) [Ratio] 30.3 kg/m2 Errol Michel Work Phone: [facility] [place] Work Phone: 01-03-2022 08:12-0400 Body surface area Derived from formula 1.63 m2 Errol Michel Work Phone: [facility] [place] Work Phone: 01-03-2022 08:12-0400 Body temperature 96.98 [degF] Errol Michel Work Phone: [facility] [place] Work Phone: 01-03-2022 08:12-0400 Body weight 68.04 kg Errol Eastmanangus Work Phone: [facility] [place] Work Phone: 01-03-2022 08:12-0400 Diastolic blood pressure 74 mm[Hg] Errol Eastmanangus Work Phone: [facility] [place] Work Phone: 01-03-2022 08:12-0400 Heart rate 69 /min Errol Eastmanangus Work Phone: [facility] [place] Work Phone: 01-03-2022 08:12-0400 Respiratory rate 18 /min Errol Eastmanangus Work Phone: [facility] [place] Work Phone: 01-03-2022 08:12-0400 SaO2% (BldA) [Mass fraction] 94 % Errol Eastmanangus Work Phone: [facility] [place] Work Phone: 01-03-2022 08:12-0400 Systolic blood pressure 107 mm[Hg] Errol Eastmanangus Work Phone: [facility] [place] Work Phone: 12-03-2021 05:59-0400 Body height 149.[address] Errol Michel Work Phone: [facility] Work Phone: 12-03-2021 05:59-0400 Body mass index (BMI) [Ratio] 31.7 kg/m2 Dr. Errol Michel Work Phone: [facility] Work Phone: 12-03-2021 05:59-0400 Body temperature 98.2 [degF] Dr. Errol Michel Work Phone: [facility] Work Phone: 12-03-2021 05:59-0400 Body weight 71.[address] Errol Michel Work Phone: [facility] Work Phone: 12-03-2021 05:59-0400 Diastolic blood pressure 78 mm[Hg] Dr. Errol Michel Work Phone: [facility] Work Phone: 12-03-2021 05:59-0400 Heart rate 69 /min Dr. Errol Michel Work Phone: [facility] Work Phone: 12-03-2021 05:59-0400 Respiratory rate 16 /min Dr. Errol Michel Work Phone: [facility] Work Phone: 12-03-2021 05:59-0400 SaO2% (BldA) [Mass fraction] 91 % Dr. Errol Michel Work Phone: [facility] Work Phone: 12-03-2021 05:59-0400 Systolic blood pressure 121 mm[Hg] Dr. Errol Michel Work Phone: [facility] Work Phone: 09-17-2021 08:05-0400 Body height 149.86 cm Errol Michel Work Phone: [facility] Work Phone: 09-17-2021 08:05-0400 Body temperature 35.8 [degF] Errol Michel Work Phone: [facility] Work Phone: 09-17-2021 08:05-0400 Diastolic blood pressure 56 mm[Hg] Errol Eastmanys Work Phone: [facility] Work Phone: 09-17-2021 08:05-0400 Heart rate 92 /min Errol Eastmanys Work Phone: [facility] Work Phone: 09-17-2021 08:05-0400 Respiratory rate 18 /min Errol Eastmanys Work Phone: [facility] Work Phone: 09-17-2021 08:05-0400 SaO2% (BldA) [Mass fraction] 91 % Errol Eastmanys Work Phone: [facility] Work Phone: 09-17-2021 08:05-0400 Systolic blood pressure 109 mm[Hg] rErol Eastmanys Work Phone: [facility] Work Phone: 04-30-2021 09:05-0500 Body height 149.86 cm Errol Eastmanys Work Phone: [facility] Work Phone: 04-30-2021 09:05-0500 Body mass index (BMI) [Ratio] 27.27 kg/m2 Errol Eastmanys Work Phone: [facility] Work Phone: 04-30-2021 09:05-0500 Body surface area Derived from formula 1.56 m2 Errol Eastmanys Work Phone: [facility] Work Phone: 04-30-2021 09:05-0500 Body weight 61.24 kg Errol Navneet Malys Work Phone: [facility] Work Phone: 02-21-2021 09:39-0400 Body height 147.32 cm Errol Navneet Malys Work Phone: [facility] Work Phone: 02-21-2021 09:39-0400 Body mass index (BMI) [Ratio] 28.01 kg/m2 Errol Michel Work Phone: [facility] Work Phone: 02-21-2021 09:39-0400 Body surface area Derived from formula 1.54 m2 Errol Eastmanys Work Phone: [facility] Work Phone: 02-21-2021 09:39-0400 Body temperature 36 [degF] Errol Eastmanys Work Phone: [facility] Work Phone: 02-21-2021 09:39-0400 Body weight 60.78 kg Errol Michel Work Phone: [facility] Work Phone: 02-21-2021 09:39-0400 Heart rate 77 /min Errol Michel Work Phone: [facility] Work Phone: 02-21-2021 09:39-0400 Respiratory rate 18 /min Errol Michel Work Phone: [facility] Work Phone: 02-21-2021 09:39-0400 SaO2% (BldA) [Mass fraction] 95 % Errol Michel Work Phone: [facility] Work Phone: 02-07-2020 11:00-0400 BMI (Body Mass Index) 28.84 kg/m2 Geraldinetaiba Tabbaa [facility] Work Phone: 02-07-2020 11:00-0400 Body Temperature 35.6 [degF] Geraldinetaiba Tabbaa [facility] Work Phone: 02-07-2020 11:00-0400 Body weight 62.6 kg Geraldinetaiba Tabbaa [facility] Work Phone: 02-07-2020 11:00-0400 BP Diastolic 65 mm[Hg] Geraldinetaiba Tabbaa [facility] Work Phone: 02-07-2020 11:00-0400 BP Systolic 127 mm[Hg] Geraldinetaiba Tabbaa [facility] Work Phone: 02-07-2020 11:00-0400 BSA (Body Surface Area) 1.56 m2 Geraldinetaiba Tabbaa [facility] Work Phone: 02-07-2020 11:00-0400 Height 147.32 cm Geraldinetaiba Tabbaa [facility] Work Phone: 02-07-2020 11:00-0400 Pulse (Heart Rate) 68 /min Geraldinetaiba Benbaa [facility] Work Phone: 02-07-2020 11:00-0400 Pulse Oximetry 99 % Geraldinetaiba Tabbaa [facility] Work Phone: 02-07-2020 11:00-0400 Respiratory Rate 18 /min Geraldinetaiba Tabbaa [facility] Work Phone: 01-10-2020 11:13-0400 Body Temperature 36.2 [degF] [id number] [facility] 01 [facility] [address] Work Phone: 01-10-2020 11:13-0400 BP Diastolic 68 mm[Hg] [id number] [facility] ROOM 01 XZ-[facility]-Bmxy er [address] Work Phone: 01-10-2020 11:13-0400 BP Systolic 114 mm[Hg] [id number] [facility] ROOM 01 RJ-Xjrcmppjaa-Svne er [address] Work Phone: 01-10-2020 11:13-0400 Pulse (Heart Rate) 70 /min [id number] [facility] ROOM 01 EV-Makupirbqz-Fwgz er [address] Work Phone: 01-10-2020 11:13-0400 Pulse Oximetry 94 % [id number] [facility] INFUS[facility] ROOM 01 EP-Aufbltatsz-Vuah er [address] Work Phone: 01-10-2020 11:13-0400 Respiratory Rate 18 /min [id number] [facility] INFUS[facility] ROOM 01 ES-Uposstxcst-Jatw er [address] Work Phone: Encounters Encounter Date Encounter Type Care Provider Facility Start: 03-09-2025 ambulatory Errol Malys [facility] Start: 03-08-2025 ambulatory Errol Malys [facility] Start: 03-08-2025 Evaluation and manag ement of inpatient Errol Malys Facility:[facility] Start: 03-01-2025 End: 03-01-2025 ambulatory [facility] Start: 02-21-2025 End: 02-21-2025 Office outpatient visit 25 minutes Baljinder Rodirgues MD Work Phone: [facility] [place] Comment on above: CAP (community acqui red pneumonia) due to Pseudomonas species (HCC) (Primary Dx); Bronchiectasis without complication (HCC); Chronic pulmonary histoplasmosis capsulati (HCC); Chronic obstructive pulmonary disease with emphysema, unspecified emphysema type (HCC); Pulmonary histoplasmosis granuloma (HCC) Start: 02-21-2025 End: 02-21-2025 ambulatory BALJINDER RODRIGUES [facility] Start: 02-15-2025 End: 02-15-2025 ambulatory [facility] Start: 02-14-2025 End: 02-14-2025 ambulatory Errol Malys Facility:[facility] Start: 02-08-2025 End: 02-08-2025 ambulatory Errol Malys Facility:[facility] Start: 02-03-2025 End: 02-03-2025 ambulatory Errol Malys Facility:[facility] Start: 01-24-2025 End: 01-24-2025 ambulatory BALJINDER RODRIGUES [facility] Start: 01-20-2025 End: 01-20-2025 ambulatory [facility] Start: 01-06-2025 End: 01-06-2025 ambulatory [facility] Start: 01-05-2025 End: 01-13-2025 Telephone encounter Baljinder Rodrigues MD Work Phone: [facility] [place] Comment on above: Other (Referring Pul m office concerns regarding TALENT DEVELOPMENT CONSULTANT ID visit.) Start: 01-05-2025 End: 01-05-2025 ambulatory Errol Malys Facility:[facility] Start: 01-04-2025 Encounter for other preprocedural examination Bonita Acevedo TALENT DEVELOPMENT CONSULTANT [facility] Start: 12-16-2024 End: 12-16-2024 ambulatory [facility] Facility:[facility] Start: 12-13-2024 End: 12-13-2024 ambulatory [facility] Start: 12-07-2024 End: 12-07-2024 ambulatory Errol [facility] Facility:[facility] Start: 12-02-2024 End: 12-02-2024 Office outpatient new 45 minutes Baljinder Rodrigues MD Work Phone: [facility] [place] Comment on above: CAP (community acqui red pneumonia) due to Pseudomonas species (CMS/HCC) (HCC) (Primary Dx); Bronchiectasis without complication (HCC); Pulmonary nodules/lesions, multiple; Smoker Start: 12-02-2024 End: 12-02-2024 [facility] Start: 12-01-2024 End: 12-01-2024 Office outpatient visit 25 minutes Vanna Hendricks MD Work Phone: [facility] Comment on above: Shoulder ankylosis, right (Primary Dx) Start: 12-01-2024 End: 12-01-2024 ambulatory [facility] Start: 11-29-2024 End: 11-29-2024 ambulatory [facility] Start: 11-25-2024 End: 11-25-2024 ambulatory Errol Malys Facility:[facility] Start: 11-25-2024 End: 11-25-2024 ambulatory Errol Anand Facility:[facility] Start: 11-22-2024 End: 11-22-2024 ambulatory [facility] Start: 11-22-2024 End: 11-22-2024 Subsequent hospital visit by physician Par X-Ray 6 [facility] Comment on above: Secondary fibromyalg ia; Postlaminectomy syndrome of lumbosacral region; Chronic idiopathic pain syndrome; Chronic right shoulder pain Start: 11-22-2024 End: 11-22-2024 Office outpatient visit 40 minutes [facility] OPERATIONS ASSISTANT-[employer]ONGUE AND [employer]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 STITCHER Work Phone: [facility] Comment on above: Tobacco abuse disord er (Primary Dx); Secondary fibromyalgia; Postlaminectomy syndrome of lumbosacral region; Chronic idiopathic pain syndrome; Chronic right shoulder pain Start: 11-22-2024 End: 11-22-2024 ambulatory [facility] Start: 11-22-2024 End: 11-22-2024 ambulatory Errol Michel Facility:[facility] Start: 11-15-2024 End: 11-15-2024 ambulatory Bonita Acevedo TALENT DEVELOPMENT CONSULTANT Facility:[facility] Start: 11-15-2024 End: 11-15-2024 ambulatory Bonita Acevedo TALENT DEVELOPMENT CONSULTANT Facility:[facility] Start: 11-09-2024 End: 11-09-2024 ambulatory Caesar Salgado Facility:[facility] Start: 10-24-2024 End: 10-24-2024 ambulatory [facility] Start: 10-12-2024 End: 10-12-2024 ambulatory Caesar Salgado Facility:[facility] Start: 09-16-2024 End: 09-16-2024 ambulatory [facility] Start: 09-09-2024 End: 09-09-2024 ambulatory Fernandez Pereira Facility:[facility] Start: 08-31-2024 End: 08-31-2024 ambulatory [facility] Start: 08-25-2024 End: 08-25-2024 ambulatory Errol Michel Facility:[facility] Start: 08-22-2024 ambulatory Pineda Rivera ty:[facility] Start: 08-18-2024 End: 08-18-2024 ambulatory Bonita Acevedo NP Facility:[facility] Start: 08-12-2024 End: 08-12-2024 ambulatory [facility] Start: 08-05-2024 End: 08-05-2024 ambulatory Errol Michel Facility:[facility] Start: 07-29-2024 End: 07-29-2024 ambulatory [facility] Start: 06-29-2024 End: 06-30-2024 ambulatory [facility] Start: 06-28-2024 End: 06-28-2024 Office outpatient visit 25 minutes [facility] OPERATIONS ASSISTANT-TONGUE AND [employer]AR[employer] STITCHER Work Phone: [facility] Comment on above: Secondary fibromyalg ia (Primary Dx); Postlaminectomy syndrome of lumbosacral region; Chronic idiopathic pain syndrome Start: 06-28-2024 End: 06-28-2024 ambulatory [facility] Start: 06-23-2024 End: 06-23-2024 ambulatory Errol Michel Facility:[facility] Start: 06-08-2024 End: 06-08-2024 Subsequent hospital visit by physician Gen Jayesh Ernandezv1 [employer] Comment on above: Arrived Start: 06-08-2024 End: 06-08-2024 ambulatory RANDAL SYKES [facility] Start: 06-04-2024 End: 06-07-2024 Evaluation and management of inpatient Randal Sykes MD Work Phone: [facility] 2 Comment on above: Pneumonia due to inf ectious organism (Primary Dx); Fall, initial encounter; Closed head injury, initial encounter; Strain of neck muscle, initial encounter; Aspiration pneumonia of both lower lobes, unspecified aspiration pneumonia type (Multi); Chronic obstructive pulmonary disease, unspecified COPD type (Multi) Start: 05-31-2024 End: 05-31-2024 ambulatory Errol Michel Facility:[facility] Start: 05-25-2024 ambulatory Amir Adeli [facility] Start: 05-25-2024 End: 05-31-2024 Evaluation and management of inpatient Amir Adeli Facility:[facility] Start: 05-22-2024 ambulatory Errol Malys [facility] Start: 05-22-2024 End: 05-24-2024 Evaluation and management of inpatient Errol Malys Facility:[facility] Start: 05-19-2024 End: 05-19-2024 Emergency department patient visit Errol Malys Facility:[facility] Start: 05-12-2024 End: 05-13-2024 ambulatory ERROL A MALYS Facility:[facility] Start: 05-06-2024 ambulatory Sree Diggs Facility :[facility] Start: 04-27-2024 ambulatory Errol Malys [facility] Start: 04-27-2024 End: 05-09-2024 Evaluation and management of inpatient Errol Malys Facility:[facility] Start: 04-26-2024 ambulatory Cherelle Almendarez [facility] Start: 04-21-2024 End: 04-21-2024 ambulatory [facility] Start: 04-11-2024 End: 04-11-2024 ambulatory Errol Malys Facility:[facility] Start: 04-01-2024 End: 04-01-2024 ambulatory Errol Malys Facility:[facility] Start: 03-30-2024 End: 03-31-2024 Emergency department patient visit Néstor Kirkpatrick Facility:[facility] Start: 03-22-2024 End: 03-22-2024 ambulatory Issa Summers Facility:[facility] Start: 03-17-2024 End: 03-17-2024 ambulatory [facility] Start: 03-16-2024 End: 03-16-2024 ambulatory Bonita Acevedo NP Facility:[facility] Start: 03-11-2024 End: 03-11-2024 Telephone encounter Ricardo Daniels DO Work Phone: [facility] Comment on above: Orders; Results Start: 03-11-2024 ambulatory Errol Malys [facility] Start: 03-11-2024 End: 03-12-2024 Evaluation and management of inpatient Errol Michel Facility:[facility] Start: 03-03-2024 End: 03-03-2024 Telephone encounter Ricardo Daniels DO Work Phone: [facility] Comment on above: Patient Question (la bs) Start: 03-02-2024 End: 03-02-2024 Office outpatient new 60 minutes Ricardo Daniels DO Work Phone: [facility] Comment on above: Severe episode of re current major depressive disorder, without psychotic features (HCC) (Primary Dx); XIOMARA (generalized anxiety disorder); Malnutrition, unspecified type (HCC); Polypharmacy; High risk medication use Start: 03-02-2024 End: 03-02-2024 ambulatory RICARDO DANIELS [facility] Start: 02-25-2024 End: 02-29-2024 Telephone encounter Ricardo Daniels DO Work Phone: [facility] Start: 10-02-2023 End: 10-02-2023 Office outpatient visit 25 minutes Vanna Hendricks MD Work Phone: [facility] Comment on above: Postlaminectomy synd laura of lumbosacral region (Primary Dx); Secondary fibromyalgia; Chronic idiopathic pain syndrome Start: 08-31-2023 End: 08-31-2023 ambulatory [facility] Work Phone: Start: 08-31-2023 End: 08-31-2023 Patient encounter procedure [facility] Start: 08-07-2023 End: 08-07-[address] Errol Michel Work Phone: [facility] Work Phone: Start: 08-07-2023 End: 08-07-[address] Errol Michel Work Phone: [facility]-Medical Out Work Phone: Start: 07-13-2023 End: 07-13-[address] Errol Michel Work Phone: [facility] Work Phone: Start: 07-13-2023 End: 07-13-[address] Errol Michel Work Phone: [facility] Work Phone: Start: 06-01-2023 End: 06-01-[address] Errol Michel Work Phone: [facility] Work Phone: Start: 05-21-2023 End: 05-21-[address] [facility] Start: 05-19-2023 End: 05-19-2023 Office outpatient visit 25 minutes Vanna Hendricks MD Work Phone: [facility] Comment on above: Secondary fibromyalg ia (Primary Dx); Postlaminectomy syndrome of lumbosacral region Start: 05-06-2023 Non-patient / Non-visit Dr. Laura Michel Work Phone: [facility] Work Phone: Start: 05-05-2023 Non-patient / Non-visit Dr. Laura Michel Work Phone: [facility] Work Phone: Start: 05-04-2023 Non-patient / Non-visit Dr. Laura Michel Work Phone: [facility] Work Phone: Start: 05-03-2023 Non-patient / Non-visit Dr. Laura Michel Work Phone: [facility] Work Phone: Start: 05-03-2023 End: 05-06-2023 Evaluation and management of inpatient Dr. Errol Michel Work Phone: [facility]-Medical Surgical 3 Work Phone: Start: 03-30-2023 Non-patient / Non-visit Dr. Laura Michel Work Phone: [facility] Work Phone: Start: 03-30-2023 Non-patient / Non-visit Dr. Laura Michel Work Phone: [facility] Start: 03-29-2023 End: 03-30-2023 Evaluation and management of inpatient Dr. Errol Michel Work Phone: [facility]-Progressive Care Unit Work Phone: Start: 03-11-2023 End: 03-11-[address] Errol Michel Work Phone: [facility]-Pulmonary Medicine [place] [facility] Work Phone: Start: 03-03-2023 End: 03-03-2023 Office outpatient visit 25 minutes Vanna Hendricks MD Work Phone: [facility] Comment on above: Postlaminectomy synd laura of lumbosacral region (Primary Dx); Chronic idiopathic pain syndrome; Osteoporosis with current pathological fracture, unspecified osteoporosis type, sequela; Osteoporosis Start: 02-17-2023 End: 02-17-[address] Errol Michel Work Phone: [facility] Work Phone: Start: 02-17-2023 End: 02-17-[address] Errol Michel Work Phone: [facility]-Cat Scan, [facility] Work Phone: Start: 01-21-2023 End: 01-21-[address] Errol Michel Work Phone: [facility]-Radiology, [place] Work Phone: Start: 01-15-[address] Errol Michel Facblair lity:[phone] Start: 01-02-2023 Non-patient / Non-visit Dr. Laura Michel Work Phone: [facility] Start: 01-01-2023 End: 01-01-[address] Errol Michel Work Phone: [facility] Work Phone: Start: 01-01-2023 End: 01-01-[address] Errol Michel Work Phone: [facility]-Pulmonary Services/Neurology Work Phone: Start: 12-31-[address] Errol Lerma lity:[phone] Start: 12-18-2022 Chart Update Errol Michel Work Phone: [facility] Work Phone: Start: 12-18-2022 End: 12-18-[address] Errol Michel Work Phone: [facility] Work Phone: Start: 12-18-2022 End: 12-18-[address] Errol Michel Work Phone: [facility] Work Phone: Start: 12-09-[address] Vanna Lerma lity:[phone] Start: 12-09-2022 AUDIT Errol Michel Work Phone: [facility] Work Phone: Start: 12-09-2022 Office outpatient vi sit 25 minutes Errol Michel Work Phone: [facility] [place] Work Phone: Start: 12-09-[address] Vanna Lerma lity:[phone] Start: 12-08-[address] Vanna Lerma lity:[phone] Start: 12-02-2022 End: 12-02-[address] Errol Michel Work Phone: [facility]-Pulmonary Medicine [facility] Work Phone: Start: 11-26-2022 End: 11-29-2022 Evaluation and management of inpatient PAULA MOSS Facility:[facility] Start: 11-03-[address] Errol Majori lity:[phone] Start: 10-31-2022 End: 10-31-[address] Errol Michel Work Phone: [facility] Work Phone: Start: 10-23-2022 AUDIT Errol Michel Work Phone: [facility] Pain Management Work Phone: Start: 10-22-2022 End: 10-22-[address] Errol Michel Work Phone: [facility] Work Phone: Start: 10-22-2022 End: 10-22-[address] Errol Michel Work Phone: [facility] Start: 10-14-[address] Errol Lerma lity:[phone] Start: 09-24-2022 End: 09-24-[address] [facility] Work Phone: Start: 09-23-2022 End: 09-23-[address] Errol Michel Work Phone: [facility] Work Phone: Start: 09-09-[address] Vanna Lerma lity:[phone] Start: 09-06-2022 Non-patient / Non-visit Dr. Laura Michel Work Phone: [facility] Physicians Work Phone: Start: 09-05-2022 Non-patient / Non-visit Dr. Laura Michel Work Phone: [facility] Work Phone: Start: 09-05-2022 Non-patient / Non-visit Dr. Laura Michel Work Phone: [facility] Start: 09-04-2022 Non-patient / Non-visit Dr. Laura Michel Work Phone: [facility] Work Phone: Start: 09-04-2022 Non-patient / Non-visit Dr. Laura Michel Work Phone: [facility] Start: 09-03-2022 Non-patient / Non-visit Dr. Laura Michel Work Phone: [facility] Work Phone: Start: 09-03-2022 Non-patient / Non-visit [facility]. [facility] Start: 09-02-2022 Non-patient / Non-visit Dr. Laura Michel Work Phone: [facility] Work Phone: Start: 09-02-2022 Non-patient / Non-visit Dr. Laura Michel Work Phone: [facility] Start: 09-01-2022 Non-patient / Non-visit Dr. Laura Michel Work Phone: [facility] Work Phone: Start: 09-01-2022 Non-patient / Non-visit Dr. Laura Michel Work Phone: [facility] Start: 08-31-2022 Non-patient / Non-visit Dr. Laura Michel Work Phone: [facility] Work Phone: Start: 08-31-2022 Non-patient / Non-visit Dr. Laura Michel Work Phone: [facility] Start: 08-30-2022 Non-patient / Non-visit Dr. Laura Michel Work Phone: [facility] Work Phone: Start: 08-30-2022 Non-patient / Non-visit Dr. Laura Michel Work Phone: [facility] Start: 08-29-2022 Non-patient / Non-visit Dr. Laura Michel Work Phone: [facility] Work Phone: Start: 08-29-2022 Non-patient / Non-visit Dr. Laura Michel Work Phone: [facility] Start: 08-28-2022 Non-patient / Non-visit Dr. Laura Michel Work Phone: [facility] Start: 08-28-2022 Non-patient / Non-visit Dr. Laura Michel Work Phone: [facility] Start: 08-28-2022 Non-patient / Non-visit Dr. Laura Michel Work Phone: [facility] Work Phone: Start: 08-27-2022 Non-patient / Non-visit Dr. Laura Michel Work Phone: [facility] Work Phone: Start: 08-27-2022 Non-patient / Non-visit Dr. Laura Michel Work Phone: [facility] Start: 08-26-2022 Non-patient / Non-visit Dr. Laura Michel Work Phone: [facility] Inpatient Physicians Start: 08-25-2022 Non-patient / Non-visit Dr. Laura Michel Work Phone: [facility] Start: 08-25-2022 Non-patient / Non-visit Dr. Laura Michel Work Phone: [facility] Start: 08-24-2022 End: 08-24-2022 Non-patient / Non-visit Dr. Errol Michel Work Phone: [facility] Work Phone: Start: 08-24-2022 Non-patient / Non-visit Dr. Laura Michel Work Phone: [facility] Start: 08-23-2022 End: 09-06-2022 Evaluation and management of inpatient Dr. Errol Michel Work Phone: [facility]-Progressive Care Unit Start: 08-20-2022 End: 08-20-[address] Errol Michel Work Phone: [facility] Work Phone: Start: 08-20-2022 End: 08-20-[address] Errol Michel Work Phone: [facility] Start: 08-11-[address] Errol Michel Faci lity:[phone] Start: 07-30-2022 End: 07-30-[address] Errol Michel Work Phone: [facility] Work Phone: Start: 07-30-2022 End: 07-30-[address] Errol Michel Work Phone: [facility] Start: 07-29-2022 AUDIT Errol Michel Work Phone: [facility] Work Phone: Start: 07-28-[address] Errol Michel Faci lity:[phone] Start: 07-11-[address] Errol Michel Faci lity:[phone] Start: 06-26-[address] Errol Michel Faci lity:[phone] Start: 06-19-2022 End: 06-19-[address] Errol Michel Work Phone: [facility] Work Phone: Start: 06-19-2022 End: 06-19-[address] Errol Michel Work Phone: [facility] Start: 06-13-[address] Errol Michel Faci lity:[phone] Start: 06-05-2022 End: 06-05-[address] Errol Michel Work Phone: [facility] Work Phone: Start: 06-05-2022 End: 06-05-[address] [facility] Start: 06-04-[address] Errol Michel Faci lity:[phone] Start: 06-03-2022 End: 06-03-[address] Errol Michel [facility] Start: 2022 End: [address] Errol Michel Work Phone: [facility] Start: 05-19-[address] Errol Michel Faci lity:[phone] Start: 05-05-[address] Errol Michel Faci lity:[phone] Start: 04-14-[address] Errol Michel Faci lity:[phone] Start: 03-31-[address] Errol Michel Faci lity:[phone] Start: 03-26-2022 End: 03-26-[address] Errol Michel Work Phone: [facility] Work Phone: Start: 03-26-2022 End: 03-26-[address] Errol Michel Work Phone: [facility] Start: 03-24-2022 Chart Update Errol Michel Work Phone: [facility] Pain Management Work Phone: Start: 03-13-2022 End: 03-13-[address] Errol Michel Work Phone: [facility] Work Phone: Start: 03-13-2022 End: 03-13-[address] Errol Michel Work Phone: [facility] Start: 03-11-2022 Office outpatient vi sit 25 minutes Errol Michel Work Phone: [facility] [place] Work Phone: Start: 03-11-[address] Errol Michel Faci lity:[phone] Start: 03-03-[address] Errol Michel Faci lity:[phone] Start: 01-27-2022 End: 01-27-[address] Errol Michel Facility:[id number] Start: 01-23-2022 AUDIT Errol Michel Work Phone: [facility] Work Phone: Start: 01-14-2022 [id number], Provider: MARIA M RAMIREZ CTR INFUSION ROOM 02,[id number], Status: Pen, Time: 8:00 AM Errol Michel Work Phone: [facility] Work Phone: Start: 01-13-2022 Patient encounter procedure Errol Michel Work Phone: [facility] Work Phone: Start: 01-10-2022 AUDIT Errol Michel Work Phone: [facility] Work Phone: Start: 01-03-2022 Office outpatient vi sit 25 minutes Errol Michel Work Phone: [facility] [place] Work Phone: Start: 12-26-2021 End: 12-26-[address] Errol Michel Work Phone: [facility] Work Phone: Start: 12-26-2021 End: 12-26-[address] Errol Michel Work Phone: [facility] Start: 12-09-2021 End: 12-09-[address] Errol Michel Work Phone: [facility] Start: 12-03-2021 End: 12-03-[address] Errol Michel Work Phone: [facility]-Pulmonary Medicine [facility] Start: 10-29-2021 End: 10-29-2021 Patient encounter procedure [facility]-Cat Scan, [facility] Start: 09-17-2021 Office outpatient vi sit 25 minutes Errol Michel Work Phone: [facility] Pain Management Work Phone: Start: 08-22-2021 AUDIT Errolnavneet Eastmanys Work Phone: [facility] Work Phone: Start: 08-21-2021 AUDIT Errol Navneet Malys Work Phone: [facility] Work Phone: Start: 04-30-2021 Office outpatient vi sit 15 minutes Errol A Malys Work Phone: [facility] Work Phone: Start: 02-21-2021 Office outpatient vi sit 25 minutes Errol A Malys Work Phone: [facility] Work Phone: Start: 02-21-2021 Patient encounter procedure Errol Navneet Eastmanys Work Phone: [facility] Work Phone: Start: 02-07-2020 Patient encounter procedure Vanna Hendricks [facility] Work Phone: Start: 01-19-2020 Patient encounter procedure [id number] [facility] INFUSION ROOM 01 [id number] [address] Work Phone: Start: 01-10-2020 Patient encounter procedure [id number] [facility] INFUSION ROOM 01 S[facility] [address] 1155 Work Phone: Procedures Date Procedure Procedure Detail Performing Clinician Start: 06-28-2024 H/O: hysterectomy History of hysterectomy Alexandrea Maldonado OPERATIONS ASSISTANT-[employer] Work Phone: Start: 06-08-2024 Ecg routine ecg w/least 12 lds trcg only w/o i&r Randal Sykes MD Work Phone: Start: 06-07-2024 Basic metabolic panel calcium total Elena Bohanon PA-C Work Phone: Start: 06-06-2024 Basic metabolic panel calcium total Elena Bohanon PA-C Work Phone: Start: 06-05-2024 Basic metabolic panel calcium total Mercedez Dani Menendez OPERATIONS ASSISTANT-[employer]ONG[employer] Work Phone: Start: 06-04-2024 Culture bacterial blood aerobic w/id isolates Randal Sykes MD Work Phone: Start: 06-04-2024 Radex hand minimum 3 views Randal Sykes MD Work Phone: Start: 06-04-2024 Radiologic exam chest single view Randal Sykes MD Work Phone: Start: 06-04-2024 Chloride bld Randal Sykes MD Work Phone: Start: 06-04-2024 Influenza virus A and B RNA [Identifier] in Unspecified specimen by FLEX with probe detection Randal Sykes MD Work Phone: Start: 06-04-2024 RBC shape Nom (Bld) Randal Sykes MD Work Phone: Start: 06-04-2024 SARS-CoV-2 (COVID-19) RNA [Presence] in Respiratory specimen by FLEX with probe detection Randal Sykes MD Work Phone: Start: 06-04-2024 Ct cervical spine w/o contrast material Randal Sykes MD Work Phone: Start: 06-04-2024 Ct head/brain w/o contrast material Randal Sykes MD Work Phone: Start: 02-29-2024 H/O: hysterectomy History of hysterectomy [facility] Work Phone: Start: 02-29-2024 History of placement of stent for coronary artery disease History of coronary artery stent placement [facility] Work Phone: Start: 05-05-[address] Errol ames Work Phone: Start: 05-05-2023 Measurement of occult blood in stool specimen using immunoassay Dr. Errol Michel Work Phone: Start: 05-04-2023 Computed tomography of abdomen and pelvis with intravenous contrast Dr. Errol Michel Work Phone: Start: 05-03-2023 Bacteria identified in Blood by Culture Dr. Errol Michel Work Phone: Start: 05-03-2023 Investigation of transfusion reaction Dr. Errol Michel Work Phone: Start: 05-03-[address] Errol mae Work Phone: Start: 05-03-2023 SARS-CoV-2, Influenza & RSV (PCR) Dr. Laura Michel Work Phone: Start: 05-03-[address] Errol Michel Work Phone: Start: 05-03-2023 Plain chest X-ray Dr. Errol Michel Work Phone: Start: 03-30-[address] Errol Michel Work Phone: Start: 03-29-2023 Plain chest X-ray Dr. Errol Michel Work Phone: Start: 03-29-2023 CT of head without contrast Dr. Errol greco Work Phone: Start: 03-29-2023 Bacteria identified in Blood by Culture Dr. Errol Michel Work Phone: Start: 03-29-2023 SARS-CoV-2 & FLU Antigen (Rapid) Dr. Leighann Michel Work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 Continuous until discontinued starting 06/05/2024 [facility] Work Phone: Comment on above: Continuous until dis continued starting 06/05/2024 Patient Education COPD Meds Gallery Host sloan Lung Disease Aerobic [facility] Work Phone: Patient referral [facility] Work Phone: End: 06-04-2024 Pulse oximetry, continuous Pulse oximetry, continuous Respiratory Care Routine Continuous until discontinued starting 06/04/2024 [facility] Work Phone: Comment on above: Continuous until dis continued starting 06/04/2024 Pulse oximetry, spot Pulse oxime try, spot Respiratory Care Routine Every 4 hours as needed. For RT orders only. until discontinued starting 06/04/2024 [facility] Work Phone: Comment on above: Every 4 hours as nee ded. For RT orders only. 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 Errol Mcihel Work Phone: [facility] 03-10-2023 Pfizer Covid-19 (Comirnaty) Dr. Errol Michel Work Phone: [facility] 03-10-2023 RSV Adult BiValent (Abrysvo) Dr. Errol Michel Work Phone: [facility] 07-07-2022 Pneumococcal conjuga te vaccine, 20-valent (PREVNAR 20) Vanna Hendricks MD Work Phone: [facility] Work Phone: 01-23-2022 Pfizer COVID-19 vacc ine, bivalent, age 12 years and older (30 mcg/0.3 mL) Vanna Hendricks MD Work Phone: [facility] Work Phone: 01-16-2022 Influenza, Seasonal, Quadrivalent, Adjuvanted Vanna Hendricks MD Work Phone: [facility] Work Phone: 01-16-2022 influenza virus vacc ine, unspecified formulation Vanna Hendricks MD Work Phone: [facility] Work Phone: 10-17-2021 Pfizer Leiva Cap SARS-CoV-2 Vanna Hendricks MD Work Phone: [facility] Work Phone: 07-31-2020 Covid (Pfizer) [facility] 07-10-2020 Covid (Pfizer) [facility] 01-24-2015 influenza, seasonal, injectable Vanna Hendricks MD Work Phone: [facility] Work Phone: 01-24-2015 zoster vaccine, live Vanna Hendricks MD Work Phone: [facility] Work Phone: 04-27-2014 pneumococcal polysaccharide vaccine, 23 valent Vanna Hendricks MD Work Phone: [facility] Work Phone: Payers Date Payer Category Payer Medicare [facility] [id number] 02-04-2024 Self-pay [id number] 10-26-2023 Medicare (Managed Care) [facility] [id number] 10-25-2022 Dual Eligibility Medicare/Medicaid Organization [id number] 10-25-2022 Medicare [facility] MED[facility] PPO [id number] 10/25/2022-Present [phone] [address] [address] [place] [address] PPO [id number] 10-25-2022 Private Health Insurance [facility] [id number] 10/25/2022-Present [address] [place] [address] [id number] 04-27-2022 Unknown [id number] 04-27-2016 Unknown [id number] 1955 Unknown [id number] 2.16.840.1.634900.3.579.2 .1045 1955 Unknown [id number] 2.16.840.1.080880.3.579.2 .1045 1955 Unknown [id number] 2.16.840.1.833037.3.579.2 .1045 1955 Unknown [id number] 2.16.840.1.228489.3.579.2 .1045 1955 Unknown [id number] 2.16.840.1.711463.3.579.2 .1045 1955 Unknown [id number] 2.16.840.1.371537.3.579.2 .1045 1955 Unknown [id number] 2.16.840.1.396352.3.579.2 .1045 1955 Unknown [id number] 2.16.840.1.416397.3.579.2 .1045 1955 Unknown [id number] 2.16.840.1.975419.3.579.2 .1045 1955 Unknown [id number] 2.16.840.1.988714.3.579.2 .1045 1955 Unknown [id number] 2.16.840.1.196413.3.579.2 .1045 1955 Unknown [id number] 2.16.840.1.979018.3.579.2 .1045 1955 Unknown [id number] 2.16.840.1.065294.3.579.2 .1045 1955 Unknown [id number] 2.16.840.1.953889.3.579.2 .1045 1955 Unknown [id number] 2.16.840.1.738983.3.579.2 .1045 1955 Unknown [id number] 2.16.840.1.351907.3.579.2 .1045 1955 Unknown [id number] 2.16.840.1.377945.3.579.2 .1045 1955 Unknown [id number] 2.16.840.1.340307.3.579.2 .1045 1955 Unknown [id number] 2.16.840.1.596162.3.579.2 .1045 1955 Unknown [id number] 2.16.840.1.332560.3.579.2 .1045 1955 Unknown [id number] 2.16.840.1.333138.3.579.2 .1045 1955 Unknown [id number] 2.16.840.1.614678.3.579.2 .1241 1955 Unknown [id number] 2.16.840.1.827038.3.579.2 .1241 1955 Unknown [id number] 2.16.840.1.703591.3.579.2 .1246 1955 Unknown [id number] 2.16.840.1.251737.3.579.2 .1246 1955 Unknown [id number] 2.16.840.1.382351.3.579.2 .1246 1955 Unknown [id number] 2.16.840.1.660445.3.579.2 .1246 1955 Unknown [id number] 2.16.840.1.283711.3.579.2 .1246 1955 Unknown [id number] 2.16.840.1.743052.3.579.2 .1246 1955 Unknown [id number] 2.16.840.1.395920.3.579.2 .1246 1955 Unknown [id number] 2.16.840.1.280901.3.579.2 .1246 1955 Unknown [id number] 2.16.840.1.916020.3.579.2 .1246 1955 Unknown [id number] 2.16.840.1.361898.3.579.2 .1246 1955 Unknown [id number] 2.16.840.1.940789.3.579.2 .1246 1955 Unknown [id number] 2.16.840.1.356311.3.579.2 .1246 1955 Unknown [id number] 2.16.840.1.907432.3.579.2 .1246 1955 Unknown [id number] 2.16.840.1.745162.3.579.2 .1246 1955 Unknown [id number] 2.16.840.1.178862.3.579.2 .1246 1955 Unknown [id number] 2.16.840.1.107862.3.579.2 .1246 1955 Unknown [id number] 2.16.840.1.199895.3.579.2 .1246 1955 Unknown [id number] 2.16.840.1.071569.3.579.2 .1246 Medicare [id number] Private Health Insurance 101 [id number] Unknown Unknown [id number] 2.16.840.1.310015.3.579.2 .462 Unknown [id number] 2.16.840.1.809199.3.579.2 .462 Unknown [id number] 2.16.840.1.732881.3.579.2 .462 Unknown [id number] 2.16.840.1.084603.3.579.2 .462 Unknown [id number] 2.16.840.1.992545.3.579.2 .462 Unknown [id number] 2.16.840.1.084530.3.579.2 .462 Unknown [id number] 2.16.840.1.746268.3.579.2 .462 Unknown [id number] 2.16.840.1.217564.3.579.2 .462 Unknown [id number] 2.16.840.1.820103.3.579.2 .462 Unknown [id number] 2.16.840.1.167778.3.579.2 .462 Unknown [id number] 2.16.840.1.336498.3.579.2 .462 Unknown [id number] 2.16.840.1.074644.3.579.2 .462 Unknown [id number] 2.16.840.1.805160.3.579.2 .462 Unknown [id number] 2.16.840.1.520754.3.579.2 .462 Unknown [id number] 2.16.840.1.119997.3.579.2 .462 Unknown [id number] 2.16.840.1.967615.3.579.2 .462 Unknown [id number] 2.16.840.1.807644.3.579.2 .462 Unknown [id number] 2.16.840.1.734765.3.579.2 .462 Unknown [id number] 2.16.840.1.466437.3.579.2 .462 Unknown [id number] 2.16.840.1.089283.3.579.2 .462 Unknown [id number] 2.16.840.1.281571.3.579.2 .462 Unknown [id number] 2.16.840.1.911768.3.579.2 .462 Unknown [id number] 2.16.840.1.822804.3.579.2 .462 Unknown [id number] 2.16.840.1.308806.3.579.2 .462 Unknown [id number] 2.16.840.1.792273.3.579.2 .462 Unknown [id number] 2.16.840.1.058476.3.579.2 .462 Unknown [id number] 2.16.840.1.225695.3.579.2 .462 Unknown [id number] 2.16.840.1.205089.3.579.2 .462 Unknown [id number] 2.16.840.1.966047.3.579.2 .462 Unknown [id number] 2.16.840.1.951289.3.579.2 .462 Unknown [id number] 2.16.840.1.041978.3.579.2 .462 Unknown [id number] 2.16.840.1.729728.3.579.2 .462 Unknown [id number] 2.16.840.1.842876.3.579.2 .462 Unknown [id number] 2.16.840.1.313061.3.579.2 .462 Unknown [id number] 2.16.840.1.333959.3.579.2 .462 Unknown [id number] 2.16.840.1.730697.3.579.2 .462 Unknown [id number] 2.16.840.1.679716.3.579.2 .462 Unknown [id number] 2.16.840.1.017632.3.579.2 .462 Unknown [id number] 2.16.840.1.756076.3.579.2 .462 Unknown [id number] 2.16.840.1.269957.3.579.2 .462 Unknown [id number] 2.16.840.1.323216.3.579.2 .462 Unknown [id number] 2.16.840.1.128768.3.579.2 .462 Unknown [id number] 2.16.840.1.517841.3.579.2 .462 Unknown [id number] 2.16.840.1.894084.3.579.2 .462 Unknown [id number] 2.16.840.1.711236.3.579.2 .462 Unknown [id number] 2.16.840.1.631742.3.579.2 .462 Unknown [id number] 2.16.840.1.784469.3.579.2 .462 Unknown [id number] 2.16.840.1.582485.3.579.2 .462 Unknown [id number] 2.16.840.1.243828.3.579.2 .462 Unknown [id number] 2.16.840.1.731016.3.579.2 .462 Unknown [id number] 2.16.840.1.067140.3.579.2 .462 Unknown [id number] 2.16.840.1.920889.3.579.2 .462 Unknown [id number] 2.16.840.1.104354.3.579.2 .462 Unknown [id number] 2.16.840.1.444509.3.579.2 .462 Unknown [id number] 2.16.840.1.912356.3.579.2 .462 Unknown [id number] 2.16.840.1.889673.3.579.2 .462 Unknown [id number] 2.16.840.1.598873.3.579.2 .462 Unknown [id number] 2.16.840.1.210665.3.579.2 .462 Unknown [id number] 2.16.840.1.236810.3.579.2 .462 Unknown [id number] 2.16.840.1.317019.3.579.2 .462 Unknown [id number] 2.16.840.1.998676.3.579.2 .462 Unknown [id number] 2.16.840.1.043212.3.579.2 .462 Unknown [id number] 2.16.840.1.537041.3.579.2 .462 Unknown [id number] 2.16.840.1.279431.3.579.2 .462 Unknown [id number] 2.16.840.1.339951.3.579.2 .462 Unknown [id number] 2.16.840.1.072234.3.579.2 .462 Unknown [id number] 2.16.840.1.943621.3.579.2 .462 Unknown [id number] 2.16.840.1.148480.3.579.2 .462 Unknown [id number] 2.16.840.1.596936.3.579.2 .462 Unknown [id number] 2.16.840.1.057548.3.579.2 .462 Unknown [id number] 2.16.840.1.582712.3.579.2 .462 Unknown [id number] 2.16.840.1.567374.3.579.2 .462 Unknown [id number] 2.16.840.1.839265.3.579.2 .462 Social History Date Type Detail Facility - - [facility] Work Phone: Start: 03-03-2023 End: 02-21-2025 Current every day smoker Current every day smoker [facility] Work Phone: Start: 05-15-2021 End: 05-03-2023 Tobacco smoking status NHIS Unknown if ever smoked [facility] Start: 10-18-2020 Rare [facility] Start: 10-18-2020 None [facility] Start: 10-18-2020 Homeless [facility] Start: 06-19-2020 Cigarettes [facility] Start: 1955 Sex Assigned At Female W [facility] Start: 02-10-2023 Tobacco smoking status NHIS Occasional tobacco smoker [facility] Work Phone: Start: 04-17-1983 End: 04-17-2023 History of tobacco use Cigarette Smoker [facility] Work Phone: Start: 02-10-2023 End: 12-02-2024 Tobacco use and exposure Smokeless tobacco non-user [facility] Work Phone: Start: 03-03-2023 End: 02-21-2025 Alcohol intake Ex-drinker (finding) [facility] Work Phone: Start: 03-03-2023 End: 02-21-2025 Tobacco use panel [facility] Work Phone: Start: 1955 Sex Assigned At Not on file [facility] Work Phone: Start: 02-21-2023 End: 06-28-2024 Exposure to SARS-CoV-2 (event) Not sure [facility] Start: 05-19-2023 End: 09-16-2023 Tobacco smoking status NHIS Ex-smoker [facility] Work Phone: Start: 04-17-1983 End: 04-17-2023 History of tobacco use Current smoker [facility] Work Phone: History of tobacco use Passive smoker [facility] Work Phone: How often to you hav e a drink containing alcohol? Never [facility] Work Phone: Start: 03-21-2022 How many standard drinks containing alcohol do you have on a typical day? Patient does not drink [facility] Work Phone: (I/We) worried whether (my/our) food would run out before (I/we) got money to buy more. Often true [facility] Work Phone: Start: 02-18-2018 End: 12-02-2024 Tobacco smoking status NHIS Smokes tobacco daily [facility] Start: 11-26-2022 End: 03-02-2024 Alcoholic beverage intake Current non-drinker of alcohol (finding) [facility] (I/We) worried whether (my/our) food would run out before (I/we) got money to buy more. Never true [facility] In the past 12 months, was there a time when you were not able to pay the mortgage or rent on time? No [facility] Has the electric, gas, oil, or water [employer] threatened to shut off services in your home in past 12Mo Yes [facility] How hard is it for you to pay for the very basics like food, housing, medical care, and heating Not very hard [facility] Start: 12-02-2024 Alcohol Comment never heavy or regular use [facility] [employer] Start: 11-25-2021 Sex Female (finding) [facility] NEGATED: Highlighted row [facility] Medical Equipment Procedure Code Equipment Code Equipment Original Text Equipment Identifier Dates Total cholecystectomy with exploration of common bile duct CLIP,PointCareGREG FDA Start: 08-13-2018 Total cholecystectomy with exploration of common bile duct CLIP,PointCareGREG FDA Start: 08-13-2018 Total cholecystectomy with exploration of common bile duct CLIP,PointCareGREG FDA Start: 08-13-2018 Total cholecystectomy with exploration of common bile duct CLIP,PointCareGREG FDA Start: 08-13-2018 Total cholecystectomy with exploration of common bile duct CLIP,PointCareGREG FDA Start: 08-13-2018 Total cholecystectomy with exploration of common bile duct CLIP,MOLLY DUFF WECK FDA Start: 08-13-2018 Total cholecystectomy with exploration of common bile duct CLIP,HEMJOHNATHON DUFF WECK FDA Start: 08-13-2018 Total cholecystectomy with exploration of common bile duct CLIP,HEMJOHNATHON DUFF WECK FDA Start: 08-13-2018 Total cholecystectomy with exploration of common bile duct CLIP,HEMJOHNATHON DUFF WECK FDA Start: 08-13-2018 Total cholecystectomy with exploration of common bile duct CLIP,HEMJOHNATHON DUFF WECK FDA Start: 08-13-2018 Total cholecystectomy with exploration of common bile duct CLIP,HEMJOHNATHON DUFF WECK FDA Start: 08-13-2018 Total cholecystectomy with exploration of common bile duct CLIP,HEMJOHNATHON DUFF WECK FDA Start: 08-13-2018 Total cholecystectomy with exploration of common bile duct CLIP,HEMJOHNATHON DUFF WECK FDA Start: 08-13-2018 Total cholecystectomy with exploration of common bile duct CLIP,MOLLY DUFF ROMIE FDA Start: 08-13-2018 Total cholecystectomy with exploration of common bile duct CLIP,MOLLY MCKEONGREG FDA Start: 08-13-2018 Total cholecystectomy with exploration of common bile duct CLIP,MOLLY MCKEONGREG FDA Start: 08-13-2018 Total cholecystectomy with exploration of common bile duct CLIP,MOLLY DUFF ROMIE FDA Start: 08-13-2018 Total cholecystectomy with exploration of common bile duct CLIP,HEMJOHNATHON DUFF WEGREG FDA Start: 08-13-2018 Total cholecystectomy with exploration of common bile duct CLIP,MOLLY DUFF WECK FDA Start: 08-13-2018 Total cholecystectomy with exploration of common bile duct CLIP,HEMJOHNATHON DUFF WECK FDA Start: 08-13-2018 Total cholecystectomy with exploration of common bile duct CLIP,HEMJOHNATHON DUFF WECK FDA Start: 08-13-2018 Total cholecystectomy with exploration of common bile duct CLIP,HEMJOHNATHON DUFF WECK FDA Start: 08-13-2018 Total cholecystectomy with exploration of common bile duct CLIP,HEMINGEGREG SHERIN WECK FDA Start: 08-13-2018 Total cholecystectomy with exploration of common bile duct CLIP,HEMOLOGREG SHERIN WECK FDA Start: 08-13-2018 Total cholecystectomy with exploration of common bile duct CLIP,MIKYJOHNATHON DUFF WECK FDA Start: 08-13-2018 Total cholecystectomy with exploration of common bile duct CLIP,HEMOLOGREG GRUBBS FDA Start: 08-13-2018 Total cholecystectomy with exploration of common bile duct CLIP,MOLLY GRUBBS FDA Start: 08-13-2018 Total cholecystectomy with exploration of common bile duct CLIP,MOLLY GRUBBS FDA Start: 08-13-2018 Total cholecystectomy with exploration of common bile duct CLIP,MOLLY GRUBBS FDA Start: 08-13-2018 Total cholecystectomy with exploration of common bile duct CLIP,MOLLY GRUBBS FDA Start: 08-13-2018 Total cholecystectomy with exploration of common bile duct CLIP,MOLLY GRUBBS FDA Start: 08-13-2018 Total cholecystectomy with exploration of common bile duct CLIP,MOLLY GRUBBS FDA Start: 08-13-2018 Total cholecystectomy with exploration of common bile duct CLIP,MOLLY GRUBBS FDA Start: 08-13-2018 Total cholecystectomy with exploration of common bile duct CLIP,MOLLY GRUBBS FDA Start: 08-13-2018 Total cholecystectomy with exploration of common bile duct CLIP,MOLLY GRUBBS FDA Start: 08-13-2018 Total cholecystectomy with exploration of common bile duct CLIP,MOLLY GRUBBS FDA Start: 08-13-2018 Total cholecystectomy with exploration of common bile duct CLIP,MOLLY GRUBBS FDA Start: 08-13-2018 Total cholecystectomy with exploration of common bile duct CLIP,MOLLY GRUBBS FDA Start: 08-13-2018 Total cholecystectomy with exploration of common bile duct CLIP,MOLLY GRUBBS FDA Start: 08-13-2018 Total cholecystectomy with exploration of common bile duct CLIP,MOLLY GRUBBS FDA Start: 08-13-2018 Total cholecystectomy with exploration of common bile duct CLIP,MOLLY GRUBBS FDA Start: 08-13-2018 Total cholecystectomy with exploration of common bile duct CLIP,MOLLY GRUBBS FDA Start: 08-13-2018 MESH,VENTLEX ST ,LG 8CM FDA Start: 12-20-2018 LEAD KIT 28CM BLADDER STIM FDA Start: 06-26-2020 GENERATOR,BLADDE R STIM FDA Start: 07-10-2020 MESH,VENTLEX ST ,LG 8CM FDA Start: 12-20-2018 LEAD KIT 28CM BLADDER STIM FDA Start: 06-26-2020 GENERATOR,BLADDE R STIM FDA Start: 07-10-2020 MESH,VENTLEX ST ,LG 8CM FDA Start: 12-20-2018 LEAD KIT 28CM BLADDER STIM FDA Start: 06-26-2020 GENERATOR,BLADDE R STIM FDA Start: 07-10-2020 MESH,VENTLEX ST ,LG 8CM FDA Start: 12-20-2018 LEAD KIT 28CM BLADDER STIM FDA Start: 06-26-2020 GENERATOR,BLADDE R STIM FDA Start: 07-10-2020 MESH,VENTLEX ST ,LG 8CM FDA Start: 12-20-2018 LEAD KIT 28CM BLADDER STIM FDA Start: 06-26-2020 GENERATOR,BLADDE R STIM FDA Start: 07-10-2020 MESH,VENTLEX ST ,LG 8CM FDA Start: 12-20-2018 LEAD KIT 28CM BLADDER STIM FDA Start: 06-26-2020 GENERATOR,BLADDE R STIM FDA Start: 07-10-2020 MESH,VENTLEX ST ,LG 8CM FDA Start: 12-20-2018 LEAD KIT 28CM BLADDER STIM FDA Start: 06-26-2020 GENERATOR,BLADDE R STIM FDA Start: 07-10-2020 MESH,VENTLEX ST ,LG 8CM FDA Start: 12-20-2018 LEAD KIT 28CM BLADDER STIM FDA Start: 06-26-2020 GENERATOR,BLADDE R STIM FDA Start: 07-10-2020 MESH,VENTLEX ST ,LG 8CM FDA Start: 12-20-2018 LEAD KIT 28CM BLADDER STIM FDA Start: 06-26-2020 GENERATOR,BLADDE R STIM FDA Start: 07-10-2020 MESH,VENTLEX ST ,LG 8CM FDA Start: 12-20-2018 LEAD KIT 28CM BLADDER STIM FDA Start: 06-26-2020 GENERATOR,BLADDE R STIM FDA Start: 07-10-2020 MESH,VENTLEX ST ,LG 8CM FDA Start: 12-20-2018 LEAD KIT 28CM BLADDER STIM FDA Start: 06-26-2020 GENERATOR,BLADDE R STIM FDA Start: 07-10-2020 MESH,VENTLEX ST ,LG 8CM FDA Start: 12-20-2018 LEAD KIT 28CM BLADDER STIM FDA Start: 06-26-2020 GENERATOR,BLADDE R STIM FDA Start: 07-10-2020 MESH,VENTLEX ST ,LG 8CM FDA Start: 12-20-2018 LEAD KIT 28CM BLADDER STIM FDA Start: 06-26-2020 GENERATOR,BLADDE R STIM FDA Start: 07-10-2020 MESH,VENTLEX ST ,LG 8CM FDA Start: 12-20-2018 LEAD KIT 28CM BLADDER STIM FDA Start: 06-26-2020 GENERATOR,BLADDE R STIM FDA Start: 07-10-2020 MESH,VENTLEX ST ,LG 8CM FDA Start: 12-20-2018 LEAD KIT 28CM BLADDER STIM FDA Start: 06-26-2020 GENERATOR,BLADDE R STIM FDA Start: 07-10-2020 MESH,VENTLEX ST ,LG 8CM FDA Start: 12-20-2018 LEAD KIT 28CM BLADDER STIM FDA Start: 06-26-2020 GENERATOR,BLADDE R STIM FDA Start: 07-10-2020 MESH,VENTLEX ST ,LG 8CM FDA Start: 12-20-2018 LEAD KIT 28CM BLADDER STIM FDA Start: 06-26-2020 GENERATOR,BLADDE R STIM FDA Start: 07-10-2020 MESH,VENTLEX ST ,LG 8CM FDA Start: 12-20-2018 LEAD KIT 28CM BLADDER STIM FDA Start: 06-26-2020 GENERATOR,BLADDE R STIM FDA Start: 07-10-2020 MESH,VENTLEX ST ,LG 8CM FDA Start: 12-20-2018 LEAD KIT 28CM BLADDER STIM FDA Start: 06-26-2020 GENERATOR,BLADDE R STIM FDA Start: 07-10-2020 MESH,VENTLEX ST ,LG 8CM FDA Start: 12-20-2018 LEAD KIT 28CM BLADDER STIM FDA Start: 06-26-2020 GENERATOR,BLADDE R STIM FDA Start: 07-10-2020 MESH,VENTLEX ST ,LG 8CM FDA Start: 12-20-2018 LEAD KIT 28CM BLADDER STIM FDA Start: 06-26-2020 GENERATOR,BLADDE R STIM FDA Start: 07-10-2020 TYMLOS PEN NEEDLES 31G X 5/16 [id number] Start: 05-26-2019 End: 03-02-2024 Goals Date Patient Goal Desired Activity /State Functional Status Date Assessment Result Facility 05-06-2023 Functional status Ambulates [facility] Work Phone: 03-30-2023 Functional status Activity Abili ty Unable to Assess [facility] Work Phone: 09-06-2022 Functional status Assistive Nighat keyona Wheelchair [facility] Work Phone: 09-06-2022 Functional status Bathroom Privilege [facility] Work Phone: 08-26-2022 Functional status Bedrest [facility] Work Phone: NEGATED: Highlighted row Functional performance Functional status health issues are not documented Disease [facility] Work Phone: Mental Status Date Assessment Result Facility 08-07-2023 Cognitive function Awake;Alert;A [employer]pria te;Follows Commands [facility] Work Phone: 05-06-2023 Cognitive function Voice/Name [facility] Work Phone: 03-30-2023 Cognitive function Voice/Name [facility] Work Phone: 03-29-2023 Cognitive function Voice/Name [facility] Work Phone: 09-06-2022 Cognitive function Voice/Name [facility] Work Phone: 08-26-2022 Cognitive function Voice/Name [facility] Work Phone: NEGATED: Highlighted row Cognitive function [Interpretation] Cognitive status health issues are not documented Disease [facility] Work Phone: Clinical Notes 02-21-2021 to 02-21-2025 Baljinder Rodrigues MD - 02/21/2025 10:00 AM EDTTelephone Encounter - Joanna Fletcher - 01/13/2025 3:29 PM EDTTelephone Encounter - Joanna Fletcher - 01/13/2025 3:29 PM EDTPatient Instructions Note Date & Type Note Facility 02-21-2025 History of Present illness Narrative [facility] Infectious Diseases Attending Outpatient Progress Note HISTORYOF PRESENT ILLNESS Followup visit- previously seen for PsA PNA in settng of emphysema and bronchiectasis, 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 No hemoptysisi, fever or chills. Associated chronic sinusitis- postnasal drip, and goes to ENT regularly. No recent antibiotic prescribed. On last visit, started on Itraconazole, 4 weeks ago. She reported getting Itra level drawn last week already, results pending. I discussed the fungal Ab panel and Histo Uag results with her- both negative. accompanied her. Overall does not feel much better yet. Review of Systems Constitutional: Negative for appetite change, chills, fatigue and fever. HENT: Positive for congestion and postnasal drip. Negative for nosebleeds and sinus pain. Respiratory: Positive for cough. Negative for shortness of breath. Cardiovascular: Negative for chest pain. Gastrointestinal: Positive for nausea. Negative for abdominal pain and vomiting. Musculoskeletal: Negative for arthralgias and myalgias. Skin: Negative for color change and rash. Neurological: Negative for headaches. Hematological: Does not bruise/bleed easily. Psychiatric/Behavioral: Negative. Social History Socioeconomic History Marital status: Spouse name: Not on file Number of children: Not on file Years of education: Not on file Highest education level: Not on file Occupational History Not on file Tobacco Use Smoking status: Every Day Current packs/day: 0.50 Types: Cigarettes Smokeless tobacco: Never Substance and Sexual Activity Alcohol use: Not Currently Comment: never heavy or regular use Drug use: Never Sexual activity: Not Currently Other Topics Concern Not on file Social History Narrative Not on file Social Drivers of Health Financial Resource Strain: Low Risk (06/06/2024) Received from [facility] Overall Financial Resource Strain (CARDIA) Difficulty of Paying Living Expenses: Not very hard Food Insecurity: Food Insecurity Present (06/04/2024) Received from [facility] Hunger Vital Sign Worried About Running Out of Food in the Last Year: Often true Ran Out of Food in the Last Year: Often true Transportation Needs: No Transportation Needs (06/06/2024) Received from [facility] PRAPARE - Transportation Lack of Transportation (Medical): No Lack of Transportation (Non-Medical): No Physical Activity: Not on file Stress: Not on file Social Connections: Not on file Intimate Partner Violence: Not At Risk (06/04/2024) Received from [facility] Humiliation, Afraid, Rape, and Kick questionnaire Fear of Current or Ex-Partner: No Emotionally Abused: No Physically Abused: No Sexually Abused: No Housing Stability: Low Risk (06/06/2024) Received from [facility] Housing Stability Vital Sign Unable to Pay for Housing in the Last Year: No Number of Times Moved in the Last Year: 0 Homeless in the Last Year: No Medical History[1] Family History[2] Visit Vitals BP 102/53 (BP Location: Right arm, Patient Position: Sitting, BP Cuff Size: Adult) Pulse 73 Temp 36.2 C (97.1 F) (Temporal) Wt Readings from Last 3 Encounters: 02/21/25 38.7 kg (85 lb 6.4 oz) 01/24/25 41.3 kg (91 lb) 12/02/24 45.4 kg (100 lb) Physical Exam Vitals reviewed. Constitutional: General: She is not in acute distress. Appearance: Normal appearance. She is not ill-appearing or toxic-appearing. HENT: Mouth/Throat: Mouth: Mucous membranes are moist. Pharynx: Oropharynx is clear. Eyes: General: No scleral icterus. Extraocular Movements: Extraocular movements intact. Cardiovascular: Rate and Rhythm: Normal rate and regular rhythm. Pulses: Normal pulses. Heart sounds: Normal heart sounds. No murmur heard. Pulmonary: Effort: Pulmonary effort is normal. No respiratory distress. Breath sounds: Normal breath sounds. No wheezing, rhonchi or rales (poor AE R mid lung zone). Abdominal: General: There is no distension. Palpations: Abdomen is soft. Tenderness: There is no abdominal tenderness. Musculoskeletal: General: Deformity: R BKA, uses motorized W/C. Cervical back: Neck supple. Lymphadenopathy: Cervical: No cervical adenopathy. Skin: General: Skin is dry. Coloration: Skin is not jaundiced. Findings: No erythema or rash. Neurological: General: No focal deficit present. Mental Status: She is alert and oriented to person, place, and time. Psychiatric: Thought Content: Thought content normal. Office Visit on 01/24/2025 Component Date Value Ref Range Status Histoplasma Galactomannan Antigen,* 01/24/2025 SEE BELOW Final ASPERGILLUS FLAVUS AB 01/24/2025 Negative Negative Final ASPERGILLUS NIGER AB 01/24/2025 Negative Negative Final ASPERGILLUS FUMIGATUS AB 01/24/2025 Negative Negative Final BLASTOMYCES AB 01/24/2025 Negative Negative Final PHUC AB 01/24/2025 Negative Negative Final COCCIDIODES AB 01/24/2025 Negative Negative Final M BAND 01/24/2025 Negative Negative Final H BAND 01/24/2025 Negative Negative Final Auto WBC 01/24/2025 15.9 (H) 3.6 - 10.7 10*3/uL Final RBC 01/24/2025 3.85 3.80 - 5.20 10*6/uL Final Hemoglobin 01/24/2025 10.3 (L) 11.7 - 16.0 g/dL Final Hematocrit 01/24/2025 32.8 (L) 35.0 - 47.0 % Final MCV 01/24/2025 85.2 77.0 - 99.0 fL Final MCH 01/24/2025 26.8 26.0 - 34.0 pg Final MCHC 01/24/2025 31.4 30.5 - 36.0 % Final RDW 01/24/2025 14.2 11.5 - 15.0 % Final Platelets 01/24/2025 547 (H) 140 - 440 10*3/uL Final MPV 01/24/2025 9.8 9.0 - 12.7 fL Final SODIUM 01/24/2025 139 136 - 145 mmol/L Final POTASSIUM 01/24/2025 4.0 3.5 - 5.1 mmol/L Final CHLORIDE 01/24/2025 101 98 - 107 mmol/L Final CARBON DIOXIDE 01/24/2025 27 23 - 31 mmol/L Final ANION GAP 01/24/2025 11 3 - 13 mmol/L Final UREA NITROGEN 01/24/2025 46 (H) 9 - 23 mg/dL Final CREATININE 01/24/2025 1.28 (H) 0.57 - 1.11 mg/dL Final GLUCOSE 01/24/2025 91 82 - 115 mg/dL Final CALCIUM 01/24/2025 9.3 8.8 - 10.0 mg/dL Final AST (SGOT) 01/24/2025 17 <34 U/L Final ALT 01/24/2025 11 <30 U/L Final ALKALINE PHOSPHATASE 01/24/2025 96 40 - 150 U/L Final ALBUMIN 01/24/2025 3.0 (L) 3.4 - 4.8 g/dL Final BILIRUBIN, TOTAL 01/24/2025 0.2 <1.2 mg/dL Final TOTAL PROTEIN 01/24/2025 6.6 6.4 - 8.3 g/dL Final eGFR 01/24/2025 45.4 (L) >60.0 mL/min/1.73m*2 Final TB1 MINUS NIL (CALCULATED) 01/24/2025 -0.01 IU/mL Final TB2 MINUS NIL (CALCULATED) 01/24/2025 0.00 IU/mL Final MITOGEN MINUS NIL (CALCULATED) 01/24/2025 >9.97 IU/mL Final Quantiferon - TB Gold Test 01/24/2025 Negative Negative Final NIL 01/24/2025 0.03 IU/mL Final Other Labs: Micro: No results for input(s): COVID19 in the last 72 hours. Per Media tabl histo U AG; neg Fungal Ab panel-ID: neg Quantiferon neg Lines: none Radiography/Echo/Other: Ne recent studies Antimicrobials, Start/End Dates: Itraconazole ASSESSMENT/PLAN 1. CAP (community acquired pneumonia) due to Pseudomonas species ([facility]) 2. Bronchiectasis without complication ([facility]) 3. Chronic pulmonary histoplasmosis capsulati (HCC) 4. Chronic obstructive pulmonary disease with emphysema, unspecified emphysema type ([facility]) 5. Pulmonary histoplasmosis granuloma (HCC) Overall still symptomatic- approx 4 weeks on Itraconazole, tolerating with nausea as main A/E. Not requiring anti-emetics, she refused. Check CT chest in 3-6 months. Await itra level for TDM Continue pulm Hygiene for her underlying emphysema/bronchiectasis Defer to eNT for chronic Sinusitis/rhinitis ADDITIONAL PLAN NOTES Anticiopate will need to treat 3-6 months. Follow up in about 2 months (around 04/23/2025). [1] Past Medical History: Diagnosis Date Anxiety Arthritis Asthma (HHS/HCC) Cardiac disease heart attack/CHF COPD (chronic obstructive pulmonary disease) (HCC) CVA (cerebral vascular accident) (HCC) right sided weakness/dyarthria Dysphagia Emphysema lung (HCC) Fibromyalgia High cholesterol HTN (hypertension) Hypothyroid Hypothyroid Pneumonia [2] Family History Problem Relation Name Age of Onset No Known Problems Mother Heart disease Father heart attack ALS Brother Cancer Maternal Grandmother breast Alzheimer's disease Maternal Grandfather documented in this encounter [facility] 02-21-2025 Note [facility] Infectious Diseases Attending Outpatient Progress Note HISTORYOF PRESENT ILLNESS Followup visit- previously seen for PsA PNA in settng of emphysema and bronchiectasis, 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 No hemoptysisi, fever or chills. Associated chronic sinusitis- postnasal drip, and goes to ENT regularly. No recent antibiotic prescribed. On last visit, started on Itraconazole, 4 weeks ago. She reported getting Itra level drawn last week already, results pending. I discussed the fungal Ab panel and Histo Uag results with her- both negative. accompanied her. Overall does not feel much better yet. Review of Systems Constitutional: Negative for appetite change, chills, fatigue and fever. HENT: Positive for congestion and postnasal drip. Negative for nosebleeds and sinus pain. Respiratory: Positive for cough. Negative for shortness of breath. Cardiovascular: Negative for chest pain. Gastrointestinal: Positive for nausea. Negative for abdominal pain and vomiting. Musculoskeletal: Negative for arthralgias and myalgias. Skin: Negative for color change and rash. Neurological: Negative for headaches. Hematological: Does not bruise/bleed easily. Psychiatric/Behavioral: Negative. Social History Socioeconomic History Marital status: Spouse name: Not on file Number of children: Not on file Years of education: Not on file Highest education level: Not on file Occupational History Not on file Tobacco Use Smoking status: Every Day Current packs/day: 0.50 Types: Cigarettes Smokeless tobacco: Never Substance and Sexual Activity Alcohol use: Not Currently Comment: never heavy or regular use Drug use: Never Sexual activity: Not Currently Other Topics Concern Not on file Social History Narrative Not on file Social Drivers of Health Financial Resource Strain: Low Risk (06/06/2024) Received from [facility] Overall Financial Resource Strain (CARDIA) Difficulty of Paying Living Expenses: Not very hard Food Insecurity: Food Insecurity Present (06/04/2024) Received from [facility] Hunger Vital Sign Worried About Running Out of Food in the Last Year: Often true Ran Out of Food in the Last Year: Often true Transportation Needs: No Transportation Needs (06/06/2024) Received from [facility] PRAPARE - Transportation Lack of Transportation (Medical): No Lack of Transportation (Non-Medical): No Physical Activity: Not on file Stress: Not on file Social Connections: Not on file Intimate Partner Violence: Not At Risk (06/04/2024) Received from [facility] Humiliation, Afraid, Rape, and Kick questionnaire Fear of Current or Ex-Partner: No Emotionally Abused: No Physically Abused: No Sexually Abused: No Housing Stability: Low Risk (06/06/2024) Received from [facility] Housing Stability Vital Sign Unable to Pay for Housing in the Last Year: No Number of Times Moved in the Last Year: 0 Homeless in the Last Year: No Medical History[1] Family History[2] Visit Vitals BP 102/53 (BP Location: Right arm, Patient Position: Sitting, BP Cuff Size: Adult) Pulse 73 Temp 36.2 ?C (97.1 ?F) (Temporal) Wt Readings from Last 3 Encounters: 02/21/25 38.7 kg (85 lb 6.4 oz) 01/24/25 41.3 kg (91 lb) 12/02/24 45.4 kg (100 lb) Physical Exam Vitals reviewed. Constitutional: General: She is not in acute distress. Appearance: Normal appearance. She is not ill-appearing or toxic-appearing. HENT: Mouth/Throat: Mouth: Mucous membranes are moist. Pharynx: Oropharynx is clear. Eyes: General: No scleral icterus. Extraocular Movements: Extraocular movements intact. Cardiovascular: Rate and Rhythm: Normal rate and regular rhythm. Pulses: Normal pulses. Heart sounds: Normal heart sounds. No murmur heard. Pulmonary: Effort: Pulmonary effort is normal. No respiratory distress. Breath sounds: Normal breath sounds. No wheezing, rhonchi or rales (poor AE R mid lung zone). Abdominal: General: There is no distension. Palpations: Abdomen is soft. Tenderness: There is no abdominal tenderness. Musculoskeletal: General: Deformity: R BKA, uses motorized W/C. Cervical back: Neck supple. Lymphadenopathy: Cervical: No cervical adenopathy. Skin: General: Skin is dry. Coloration: Skin is not jaundiced. Findings: No erythema or rash. Neurological: General: No focal deficit present. Mental Status: She is alert and oriented to person, place, and time. Psychiatric: Thought Content: Thought content normal. Office Visit on 01/24/2025 Component Date Value Ref Range Status Histoplasma Galactomannan Antigen,* 01/24/2025 SEE BELOW Final ASPERGILLUS FLAVUS AB 01/24/2025 Negative Nega (more content not included)... [facility] 01-13-2025 Telephone encounter Note Received requested records from [facility], scanned into pt's chart for your review. Also spoke w/pt who scheduled F/U with Dr. Rodrigues for 01/24/25 at 10:30am. Pt aware of appt info & address. [facility] 01-13-2025 Miscellaneous Notes Received requested records from [facility], scanned into pt's chart for your review. Also spoke w/pt who scheduled F/U with Dr. Rodrigues for 01/24/25 at 10:30am. Pt aware of appt info & address. Per Dr. Rodrigues s 01/13/25 1:59pm TE response, Spoke with MARGARET Acevedo about patient, she reiterated that their clinic routinely does not prescribe inhaled aminoglycosides or obtain cultures when they ordered a perc biopsy of lung mass back in November. Will see her again and assess her need for additional antibiotic management of her bronchiectasis. Please schedule in next 1-2 weeks. I asked for their office to forward additional biopsy results to us as well. Received VM from Bonita Acevedo NP w/[facility] returning Dr. Rodrigues's call. She's asking for call back on her cell: [phone]. Secure chat msg sent to Dr. Rodrigues informing as well. Per Dr. Ravi ames 01/12/25 2:40pm TE response, Left VM for [facility] to call me back-JEP. I remember leaving VM back in November too. Dr. Rodrigues, can you please advise regarding provider's call from 01/05? Received call from Bonita Acevedo NP w/[facility]. She had previously referred pt to ID; 12/02/24 [facility] ID progress note faxed to their office this morning. After reviewing the note, Bonita has several concerns & needs to discuss with Dr. Rodrigues directly. Provider reports that in the HPI, progress note states that pt was not on any recent abx, however in the next sentence the note states that pt was prescribed Levaquin. Bonita also reports that in the plan, Dr. Rodrigues states an inhaled tobramycin should be considered & Pulm can prescribe. Bonita says that they cannot prescribe this & states this is why she referred pt to ID to begin with. And finally, Bonita reports that at the end of the progress note, it states that Dr. Rodrigues would be reaching out to the referring office to discuss the visit however they never received a call from him. Bonita is asking for a call back from Dr. Rodrigues as soon as possible. Please advise. documented in this encounter [facility] 01-13-2025 Telephone encounter Note Per Dr. Ravi ames 01/13/25 1:59pm TE response, Spoke with [facility] [facility]- C Acevedo about patient, she reiterated that their clinic routinely does not prescribe inhaled aminoglycosides or obtain cultures when they ordered a perc biopsy of lung mass back in November. Will see her again and assess her need for additional antibiotic management of her bronchiectasis. Please schedule in next 1-2 weeks. I asked for their office to forward additional biopsy results to us as well. [facility] 01-13-2025 Telephone encounter Note Received VM from Bonita Acevedo NP w/[facility] returning Dr. Rodrigues's call. She's asking for call back on her cell: [phone]. Secure chat msg sent to Dr. Rodrigues informing as well. [facility] 01-13-2025 Telephone encounter Note Per Dr. Rodrigues s 01/12/25 2:40pm TE response, Left VM for [facility] to call me back-JEP. I remember leaving VM back in November too. [facility] 01-09-[address] Rodrigues, can you please advise regarding provider's call from 01/05? [facility] 01-05-2025 Telephone encounter Note Received call from Bonita Acevedo NP w/[facility]. She had previously referred pt to ID; 12/02/24 [facility] ID progress note faxed to their office this morning. After reviewing the note, Bonita has several concerns & needs to discuss with Dr. Rodrigues directly. Provider reports that in the HPI, progress note states that pt was not on any recent abx, however in the next sentence the note states that pt was prescribed Levaquin. Bonita also reports that in the plan, Dr. Rodrigues states an inhaled tobramycin should be considered & Pulm can prescribe. Bonita says that they cannot prescribe this & states this is why she referred pt to ID to begin with. And finally, Bonita reports that at the end of the progress note, it states that Dr. Rodrigues would be reaching out to the referring office to discuss the visit however they never received a call from him. Bonita is asking for a call back from Dr. Rodrigues as soon as possible. Please advise. [facility] 12-02-2024 History of Present illness Narrative [facility] Infectious Diseases Attending Outpatient Consult Note Reason for Consult: PsA Lung infection in patient with multiple antibiotic allergies Requesting Physician: Jose Acevedo CNP [facility] Chief Complaint Patient presents with New Patient Pseudomonas sputum/work up HISTORY OF PRESENT ILLNESS The patient is a 69 y.o. female with presenting with chronic productive cough- yellowish green sputum, worse when recumbent at night and waking up, for months butnot any worse. Already on prn O2, and uses PAP at bedtime(? If compliant). Known to Pulmonary medicine due to h/oCOPD, Bronchiectasis, and it appears recurrent bouts of LRTI. Last h ospitalization was in May at [facility], and while she recalls some improvement from PNA bout that time, has had baseline symptoms since. No recent AECOPD requiring steroids. Nor recent antibiotics. Of note, has also followed with ENT for chronic rhinitis/Sinusitis compalints, and was just prescribed Levofloxacin on 11/23 for 14 days for this. Resp culture from October did grow cary-S PsA. She however denies any improvement of her symptoms even on this medication. She continues to smoke 1/2 ppd(x40 yrs) and is not willing to quit. Also, recent PET Scan done showed multiple nodules, some spiculated concerning for malignancy and is schedule for biopsy on 12/09. She describes hives to Doxycycline, Ceclor, Sulfa, Clarithromycin, PCN. Seems to tolerate FQs just fine and has been on IV Meropenem when admitted[place]liv[place] exposure. No tB exposure. Medical History[1] Surgical History[2] Current Medications[3] Allergies[4] Social History Socioeconomic History Marital status: Spouse name: Not on file Number of children: Not on file Years of education: Not on file Highest education level: Not on file Occupational History Not on file Tobacco Use Smoking status: Every Day Current packs/day: 0.50 Types: Cigarettes Smokeless tobacco: Never Substance and Sexual Activity Alcohol use: Not Currently Comment: never heavy or regular use Drug use: Never Sexual activity: Not Currently Other Topics Concern Not on file Social History Narrative Not on file Social Drivers of Health Financial Resource Strain: Low Risk (06/06/2024) Received from [facility] Overall Financial Resource Strain (CARDIA) Difficulty of Paying Living Expenses: Not very hard Food Insecurity: Food Insecurity Present (06/04/2024) Received from [facility] Hunger Vital Sign Worried About Running Out of Food in the Last Year: Often true Ran Out of Food in the Last Year: Often true Transportation Needs: No Transportation Needs (06/06/2024) Received from [facility] PRAPARE - Transportation Lack of Transportation (Medical): No Lack of Transportation (Non-Medical): No Physical Activity: Not on file Stress: Not on file Social Connections: Not on file Intimate Partner Violence: Not At Risk (06/04/2024) Received from [facility] Humiliation, Afraid, Rape, and Kick questionnaire Fear of Current or Ex-Partner: No Emotionally Abused: No Physically Abused: No Sexually Abused: No Housing Stability: Low Risk (06/06/2024) Received from [facility] Housing Stability Vital Sign Unable to Pay for Housing in the Last Year: No Number of Times Moved in the Last Year: 0 Homeless in the Last Year: No Family History[5] Review of Systems Constitutional: Positive for fatigue and unexpected weight change (20# loss in 6 months). Negative for fever. HENT: Positive for congestion and postnasal drip. Negative for sinus pressure and sore throat. Respiratory: Positive for cough and shortness of breath. Negative for chest tightness and wheezing. Cardiovascular: Negative for chest pain and leg swelling. Gastrointestinal: Negative. Musculoskeletal: Positive for back pain (chronic, gets Ketamine infusions with Pain management). Neurological: Negative for weakness and headaches. Hematological: Bruises/bleeds easily. Psychiatric/Behavioral: Negative. Visit Vitals BP 98/58 (BP Location: Right arm, Patient Position: Sitting, BP Cuff Size: Adult) Pulse 66 Temp 36.6 C (97.8 F) (Temporal) Physical Exam Vitals reviewed. Constitutional: General: She is in acute distress. Appearance: She is ill-appearing (frail, in a motorized wheelchair). She is not toxic-appearing (mild conv dyspnea). HENT: Mouth/Throat: Mouth: Mucous membranes are moist. Pharynx: Oropharynx is clear. Eyes: General: No scleral icterus. Extraocular Movements: Extraocular movements intact. Cardiovascular: Rate and Rhythm: Normal rate and regular rhythm. Pulses: Normal pulses. Heart sounds: Normal heart sounds. No murmur heard. Pulmonary: Effort: Pulmonary effort is normal. No respiratory distress. Breath sounds: Normal breath sounds. No wheezing, rhonchi or rales (poor AE, with prolongeed exp phase c/w COPD). Abdominal: General: There is no distension. Palpations: Abdomen is soft. Tenderness: There is no abdominal tenderness. Musculoskeletal: General: Signs of injury present. No swelling. Cervical back: Neck supple. Right lower leg: No edema. Left lower leg: No edema (BKA). Lymphadenopathy: Cervical: No cervical adenopathy. Skin: Findings: Bruising (old to arms) present. No erythema or rash. Neurological: Mental Status: She is alert and oriented to person, place, and time. Psychiatric: Mood and Affect: Mood normal. Thought Content: Thought content normal. No visits with results within 1 Month(s) from this visit. Latest known visit with results is: No results found for any previous visit. Other Labs: Micro: No results for input(s): COVID19 in the last 72 hours. 11/15 Resp cx: PsA [id number]) Lines: none Radiography/Echo/Other: No recent CXR available PET scan report on Media tab Antimicrobials, Start/End Dates: Levofloxacin 11/23 x 14 days ASSESSMENT/PLAN 1. CAP (community acquired pneumonia) due to Pseudomonas species (CMS/HCC) (HCC) 2. Bronchiectasis without complication (HCC) 3. Pulmonary nodules/lesions, multiple 4. 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 Already on MDIs but may benefit from percussive therapy as well as hypertonic saline/pulmonary hygiene efforts. She seems reluctant to trial vest therapy due to chronic back pain. So far levofloxacin prescribed for sinusitis does not appear to impact on her clinical symptoms. Complete 14 day course. Doubt extending course wioll make a difference here. Another consideration is inhaled tobramycin three times per week which Pulmonary svc can prescribe. We will reach out to referring provider regarding these options. Likely malignancy given abnl PET scan with multiple spiculated nodules- agree with tissue biopsy- also send for routine and AFB , fungal cultures to cover D/dx. ADDITIONAL PLAN NOTES As above. No additional anti-infectives at this time. >20 min additional time spent on education regarding COPD and bronchiectasis- pathophysiology and management. [1] Past Medical History: Diagnosis Date Anxiety Arthritis Asthma Cardiac disease heart attack/CHF COPD (chronic obstructive pulmonary disease) (HCC) CVA (cerebral vascular accident) (HCC) right sided weakness/dyarthria Dysphagia Emphysema lung (HCC) Fibromyalgia High cholesterol HTN (hypertension) Hypothyroid Hypothyroid Pneumonia [2] Past Surgical History: Procedure Laterality Date HYSTERECTOMY LOWER EXTREMITY AMPUTATION (HISTORICAL) BKA right/non healing ankle Fx SINUS SURGERY STENT INSERTION (HISTORICAL) [3] Current Outpatient Medications Medication Sig Dispense Refill albuterol 108 (90 Base) MCG/ACT inhaler Inhale 2 puffs every 6 hours as needed for wheezing. atorvastatin (Lipitor) 80 MG tablet Take 80 mg by mouth daily. busPIRone (Buspar) 10 MG tablet Take 10 mg by mouth 2 times daily. clopidogrel (Plavix) 75 MG tablet Take 75 mg by mouth daily. cyclobenzaprine (Flexeril) 10 MG tablet Take 5 mg by mouth 2 times daily as needed for muscle spasms. diclofenac (Voltaren) 75 MG EC tablet Take 75 mg by mouth 2 times daily. Do not crush, chew, or split. donepezil (Aricept) 10 MG tablet Take 10 mg by mouth Nightly. DULoxetine (Cymbalta) [address] capsule Take 60 mg by mouth daily. Do not crush or chew. (Patient taking differently: Take 60 mg by mouth 2 times daily. Do not crush or chew.) ergocalciferol (Vitamin D2) 1.25 MG (89308 UT) capsule Take 1.25 mg by mouth 1 (one) time per week. furosemide (Lasix) 40 MG tablet Take 60 mg by mouth daily. hydrOXYzine HCl (Atarax) 50 MG tablet Take 50 mg by mouth Nightly as needed for itching. levothyroxine (Synthroid, Levoxyl) 125 MCG tablet Take 125 mcg by mouth every morning (before breakfast). liothyronine (Cytomel) 5 MCG tablet Take 5 mcg by mouth daily. LORazepam (Ativan) 0.5 MG tablet Take 0.5 mg by mouth 2 times daily as needed for anxiety. metoprolol tartrate (Lopressor) 25 MG tablet Take by mouth 2 times daily. midodrine (Proamatine) 5 MG tablet Take 5 mg by mouth 2 times daily. mometasone-formoterol (Dulera) 100-5 MCG/ACT inhaler Inhale 2 puffs 2 times daily. Rinse mouth with water after use to reduce aftertaste and incidence of candidiasis. Do not swallow. montelukast (Singulair) 10 MG tablet Take 10 mg by mouth Nightly. Nutritional Supplements (ENSURE ACTIVE PO) Take 1 Bottle by mouth 4 times daily. pantoprazole (ProtoNix) 40 MG EC tablet Take 40 mg by mouth every morning (before breakfast). Do not crush, chew, or split. QUEtiapine (SEROquel) 25 MG tablet Take 25 mg by mouth Nightly. tiotropium (Spiriva) [address] 1 capsule into inhaler and inhale daily. topiramate 50 MG tablet Take 50 mg by mouth as needed. traMADol (Ultram) 50 MG tablet Take 50 mg by mouth every 8 hours as needed for severe pain (7-10). No current facility-administered medications for this visit. [4] Allergies Allergen Reactions Ambien [Zolpidem] Other confusion Biaxin [Clarithromycin] Hives Ceclor [Cefaclor] Hives Doxycycline Hives Penicillins Hives Sulfa Antibiotics Hives Tape Other Skin tears/bruising [5] Family History Problem Relation Name Age of Onset No Known Problems Mother Heart disease Father heart attack ALS Brother Cancer Maternal Grandmother breast Alzheimer's disease Maternal Grandfather documented in this encounter [facility] 12-01-2024 History of Present illness Narrative SUBJECTIVE: This is 69 y.o. female with PMH of extensive mental illness with flat affect, smoking normal right TKA with pain, chronic lower back pain and postlaminectomy syndrome after multiple back surgeries with T9 to sacrum fusion treated with baclofen 10 mg x 3 daily, opioid sparing infusion who is here for follow-up stating that she is they discovered multiple nodules on her lungs and she is going for biopsy soon they think it is lung cancer. The patient is here for her right shoulder ankylosis which has increased pain now and she is asking for another injection of her right shoulder. Subacromial injection was done in the office today with excellent resolution of her symptoms. Prior office visit: 10/02/2023: This is 68 y.o. female with PMH of extensive mental illness with flat affect, smoking with a chronic lower back pain and postlaminectomy syndrome after multiple back surgeries with T9 to sacrum fusion, right BKA with phantom limb pain treated with IV infusion therapy and she is off ketamine nasal spray and pregabalin just on baclofen 3 times daily who is here for follow-up stating that the infusion therapy helps her tremendously she gets 100% relief for the 2 weeks till she get her second infusion. I talked to her and her to start extending the the interval between the infusion to every 3 weeks and maybe longer eventually. At this time we will renew her order for the infusion therapy. Prior office visit: 05/19/2023: This is 67 y.o. female with PMH [...] new lab work since she goes to [place]. She would like to continue with her IV infusion therapy since her major admissions to the hospital increase her pain significantly. 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 04/18/2023 bone density study showed lowest T-score -3.5 in the right femur neck Plan Continue IV infusion once every 2-week and recommended to increase the intervals to every 3 weeks and then eventually to every 4 weeks. Continue baclofen 10 mg plan 3 times daily Fosamax 70 mg weekly Last procedure: 12/01/2024 right shoulder injection patient has had 80% improvement in pain function 01/27/2022 caudal TR which gave the patient [...] abuse, dependence, addiction and diversion. It showed temazepam 30 mg daily, lorazepam 1 mg 3 times daily from from Errol Michel and off ketamine + pregabalin 50 mg 3 times daily from hi OPIOID RISK ASSESSMENT SCORE 2/ Work/Pending law [...] Genitourinary: Negative. Musculoskeletal: Positive for arthralgias, back pain and myalgias. Skin: Negative. Neurological: Negative. Hematological: Negative. Psychiatric/Behavioral: Negative. Physical Exam [...] Abdomen is soft. Musculoskeletal: General: Tenderness present. Skin: General: Skin is warm. Neurological: General: No focal deficit present. Mental Status: She is alert and oriented [...] treatment options, risk-factor reduction, and patient/family education. Continue self-directed physical therapy at least daily exercises for minimum of 20-minute Right shoulder injection in office today Continue opioid sparing infusion Healthy lifestyle and anti-inflammatory diet in addition to weight control discussed with the patient Alternative chronic pain therapies was discussed, encouraged and information was handed Return to Clinic 3 months Procedure: Right shoulder subacromial and glenohumeral injection. Ready to learn, no apparent learning barriers. Explained treatment plan. Pt. verbalized understanding. Following review of potential side effects and complications (including but not necessarily limited to infection, allergic reaction, local tissue breakdown, skin blanching, systemic side effects of corticosteroid's, elevation of blood glucose, injury to bodily tissues) they indicated they understood and agreed to proceed. The procedure was carried out under sterile prep with iodine swab and alcohol. The skin was infiltrated with lidocaine 1% using 25 ga 1.5in needle was introduced and advanced into the subacromial space then glenohumeral space via a lateral approach with the same skin entry site.Then size 21G 1.5 in needle was introduced at the same subacromial space, after negative aspiration a mixture of 4cc of 0.75% bupivacaine and 40 mg of Kenalog was distributed equally in the two spaces. Pt. Tolerated the procedure very well and had complete resolution of her symptoms. *Please note this report has been produced using speech recognition software and may contain errors related to that system including grammar, punctuation and spelling as well as words and phrases that may be inappropriate. If there are questions or concerns, please feel free to contact me to clarify. Vanna Hendricks MD This is 69 y.o. female with who has been treated for Chronic right shoulder pain . Pain is worse, The pain is described as just hurts and is relieved by an injection with who is here for follow-up Chief Complaint Patient presents with Follow-up Right shoulder pain Pain Therapies: Injections Recently diagnoses with lung cancer . documented in this encounter [facility] Work Phone: 11-22-2024 History of Present illness Narrative Images from the original note were not included. Chief Complain Follow-up for widespread muscle joint pain History Of Present Illness Codi Blank is a 69 y.o. female here for follow-up for widespread muscle joint pain with right shoulder pain radiating to hand. The patient rates the pain at 4 on a scale from 0-10. The patient describes pain as sharp, shooting, stabbing. The pain is worsened by housework, yard work, ADLs and is alleviated by medications Tylenol, position change, sitting, and IV infusion therapy. Since the last visit the pain has improved. The patient denies any fever, chills, weight loss, weakness, bladder/ bowel incontinence, history of cancer, history of IV drug abuse, recent trauma. Prior office visit: 06/28/2024 Codi Blank is a 69 y.o. female here with her , recall past medical history of multiple back surgeries with T9 to sacrum fusion, postlaminectomy syndrome right BKA with phantom limb pain, fibromyalgia, COVID and recent pneumonia hospitalization. Who is here for follow-up for IV infusion therapy for widespread muscle and joint pain. She was previously receiving IV infusion therapy before missing multiple appointments due to COVID, and hospitalization due to pneumonia. She has fully recovered and is here seeking treatment for IV infusion therapy. She is no longer taking gabapentin or ketamine lidocaine nasal spray. She denies any new neurological or constitutional symptoms. I was able to get the patient started on IV infusion therapy tomorrow 9 AM due to a cancellation. Patient is very grateful. Provided refill of Flexeril for muscle spasms and symptom relief. Will plan for IV infusion therapy every 2 weeks with the goal of transitioning back to every 3 weeks once pain and inflammation improved. Patient verbalized understand plan of care. All questions and concerns answered. Procedures: 01/27/2022 caudal TR which gave the patient [...] encounter, encounters, lab results, imaging and other available records. I have personally reviewed the OARRS report for this patient. This report is scanned into the electronic medical record. I have considered the risks of abuse, dependence, addiction and diversion. It showed: Codeine guaifenesin, lorazepam, temazepam from Dr. Michel OPIOID RISK ASSESSMENT SCORE 2 Aberrant behavior: None Past Medical History She has a past medical history of Essential (primary) hypertension (01/10/2020), Presence of coronary angioplasty implant and graft (02/21/2021), and Transient cerebral ischemic attack, unspecified (01/10/2020). Surgical History She has a past surgical history that includes Other surgical history (02/21/2021); Other surgical history (02/21/2021); Other surgical history (02/21/2021); Other surgical history (02/21/2021); Other surgical history (02/21/2021); Other surgical history (02/21/2021); Other surgical history (02/21/2021); Other surgical history (02/21/2021); Other surgical history (02/21/2021); and Other surgical history (02/21/2021). Social History She reports that she quit smoking about 19 months ago. Her smoking use included cigarettes. She started smoking about 41 years ago. She has a 10 pack-year smoking history. She has been exposed to tobacco smoke. She has never used smokeless tobacco. She reports that she does not currently use alcohol. She reports that she does not currently use drugs. Family History Family History[1] Allergies Adhesive, Adhesive tape-silicones, Cefaclor, Clarithromycin, Doxycycline, Penicillins, Sulfa (sulfonamide antibiotics), and Sulfamethoxazole Review of Systems Review of Systems Constitutional: Negative for chills and fever. Respiratory: Negative for chest tightness, shortness of breath and wheezing. Recently found Lung nodules , current smoker 0.5 PPD Hx of COPD and asthma, uses 4 liters O2 at night Cardiovascular: Negative for chest pain and palpitations. Gastrointestinal: Negative for constipation, diarrhea and nausea. Genitourinary: Negative for frequency and urgency. Musculoskeletal: Positive for arthralgias, back pain and myalgias. Right BKA in electric wheelchair., right shoulder and lower back pain. Neurological: Positive for numbness. Negative for dizziness. Right arm numbness and tingling that comes and goes. Psychiatric/Behavioral: Negative for agitation, confusion and suicidal ideas. Physical Exam Physical Exam Constitutional: General: She is not in acute distress. Appearance: Normal appearance. Comments: Right shoulder decreased range of motion flexion extension, pain with lateral movement 45 degrees, right Neer's test positive right trapezius and glenohumeral joint tenderness to touch, bilateral upper extremity 5 out of 5 hand grasp, sensation intact. Musculoskeletal: General: Tenderness present. Right shoulder: Tenderness present. Decreased range of motion. Cervical back: Spinous process tenderness present. Neurological: General: No focal deficit present. Mental Status: She is alert and oriented to person, place, and time. GCS: GCS eye subscore is 4. GCS verbal subscore is 5. GCS motor subscore is 6. Cranial Nerves: Cranial nerves 2-12 are intact. Sensory: Sensation is intact. Motor: Motor function is intact. Coordination: Coordination abnormal. Gait: Gait abnormal. Deep Tendon Reflexes: Reflex Scores: Patellar reflexes are 3+ on the right side and 3+ on the left side. Psychiatric: Attention and Perception: Attention and perception normal. Mood and Affect: Mood normal. Speech: Speech normal. Behavior: Behavior normal. Thought Content: Thought content normal. Cognition and Memory: Cognition normal. Judgment: Judgment normal. Last Recorded Vitals Blood pressure 101/72, pulse 54, temperature 35.4 C (95.7 F), temperature source Temporal, height (!) 1.473 m (4' 10), weight 46.4 kg (102 lb 6.4 oz), SpO2 92%, not currently . Reviewed Labs Lab Results Component Value Date GLUCOSE 81 06/07/2024 CALCIUM 8.8 06/07/2024 NA 139 06/07/2024 K 4.3 06/07/2024 CO2 31 06/07/2024 CL 103 06/07/2024 BUN 15 06/07/2024 CREATININE 0.64 06/07/2024 Assessment/Plan Codi Blank is a 69 y.o. female here with her , recall past medical history of multiple back surgeries with T9 to sacrum fusion, postlaminectomy syndrome right BKA with phantom limb pain, fibromyalgia, COVID, lung nodules, current smoker 0.5 pack/day on 4 L O2 at night, who is here for follow-up of IV infusion therapy. She is receiving IV infusion therapy provides every 2 weeks which provides 50% relief of lower back and fibromyalgia symptoms. Today she complains of right shoulder pain and reports decreased range of motion. She denies trauma or injury related to symptoms. I provided order for right shoulder x-ray she is managing her symptoms with Tylenol, Flexeril and Cymbalta which provides moderate relief of symptoms between infusions. He was previously trialed on gabapentin and ketamine nasal spray however she did not tolerate side effects. She denies any new neurological or constitutional symptoms she denies any bowel bladder incontinence or saddle paresthesia. Given the relief the IV infusion therapy provides plan to continue with IV infusion therapy every 2 weeks with the goal of transitioning to 3 weeks. I provided referral for physical therapy. Pending right shoulder x-ray would consider right shoulder corticosteroid injection. Plan to continue with current pain medication regimen as prescribed. Strongly encouraged smoking cessation and provided smoking cessation referral. Plan At least 50% of the visit [...] treatment options, risk-factor reduction, and patient/family education. Provided referral for smoking cessation Plan to continue with IV infusion therapy every 2 weeks for widespread muscle and joint pain symptom relief. Provided referral for physical therapy for right shoulder pain and lower back pain. Right shoulder x-ray, pending results will consider right shoulder corticosteroid injection Provided refill of Flexeril for muscle spasms Healthy lifestyle and anti-inflammatory diet in addition to weight control discussed with the patient Alternative chronic pain therapies was discussed, encouraged and information was handed Return to Clinic 1 month *Please note this report has been produced using speech recognition software and may contain errors related to that system including grammar, punctuation and spelling as well as words and phrases that may be inappropriate. If there are questions or concerns, please feel free to contact me to clarify. I spent 45 minutes in the professional and overall care of this patient. ANTHONY Pittman [1] Family History Problem Relation Name Age of Onset Heart attack Father documented in this encounter [facility] Work Phone: 06-28-2024 History of Present illness Narrative Dwight Each Box that Applies Female Male FAMILY HISTORY OF SUBSTANCE ABUSE Dwight the boxes that applies Alcohol x 1 ? 3 Illegal drugs ? 2 ? 3 Rx drugs ? 4 ? 4 PERSONAL HISTORY OF SUBSTNACE ABUSE Alcohol ? 3 ? 3 Illegal drugs ? 4 ? 4 Rx drugs ? 5 ? 5 Age Between 16-45 years ? 1 ? 1 History of Preadolescent Sexual Abuse ? 3 ? 0 PSYCHOLOGIC DISEASE ADD, OCD, bipolar, schizophrenia ? 2 ? 2 Depression x 1 ? 1 Scoring Totals Scoring (Risk) 0-3 - Low 4-7 - Moderate 8 - High Opioid Risk Assessment Score 06/22 Chief Complain Follow-up for widespread muscle and joint pain. History Of Present Illness Codi Blank is a 69 y.o. female here for widespread muscle and joint pain. The patient rates the pain at 9 on a scale from 0-10. The patient describes pain as sharp, aching, allover pain. The pain is worsened by most activities and is alleviated by medications nonsteroidal anti-inflammatory drugs, Tylenol, and muscle relaxers, position change, and sitting. Since the last visit the pain has worsened due to the patient being hospitalized for COVID and pneumonia. She had missed multiple IV infusion therapy appointments. The patient denies any fever, chills, weight loss, weakness, bladder/ bowel incontinence, history of cancer, history of IV drug abuse, recent trauma. Prior office visit: 10/02/23 Dr. Hendricks This is 68 y.o. female with PMH of extensive mental illness with flat affect, smoking with a chronic lower back pain and postlaminectomy syndrome after multiple back surgeries with T9 to sacrum fusion, right BKA with phantom limb pain treated with IV infusion therapy and she is off ketamine nasal spray and pregabalin just on baclofen 3 times daily who is here for follow-up stating that the infusion therapy helps her tremendously she gets 100% relief for the 2 weeks till she get her second infusion. I talked to her and her to start extending the the interval between the infusion to every 3 weeks and maybe longer eventually. At this time we will renew her order for the infusion therapy. Last procedure: 01/27/2022 caudal TR which gave [...] encounter, encounters, lab results, imaging and other available records. I have personally reviewed the OARRS report for this patient. This report is scanned into the electronic medical record. I have considered the risks of abuse, dependence, addiction and diversion. It showed: Codeine guaifenesin, lorazepam, temazepam from Dr. Michel OPIOID RISK ASSESSMENT SCORE 2/26 Aberrant behavior: None Past Medical History She has a past medical history of Essential (primary) hypertension (01/10/2020), Presence of coronary angioplasty implant and graft (02/21/2021), and Transient cerebral ischemic attack, unspecified (01/10/2020). Surgical History She has a past surgical history that includes Other surgical history (02/21/2021); Other surgical history (02/21/2021); Other surgical history (02/21/2021); Other surgical history (02/21/2021); Other surgical history (02/21/2021); Other surgical history (02/21/2021); Other surgical history (02/21/2021); Other surgical history (02/21/2021); Other surgical history (02/21/2021); and Other surgical history (02/21/2021). Social History She reports that she quit smoking about 14 months ago. Her smoking use included cigarettes. She started smoking about 41 years ago. She has a 10 pack-year smoking history. She has been exposed to tobacco smoke. She has never used smokeless tobacco. She reports that she does not currently use alcohol. She reports that she does not currently use drugs. Family History Family History Problem Relation Name Age of Onset Heart attack Father Allergies Adhesive, Adhesive tape-silicones, Cefaclor, Clarithromycin, Doxycycline, Penicillins, Sulfa (sulfonamide antibiotics), and Sulfamethoxazole Review of Systems Review of Systems Constitutional: Negative for chills and fatigue. Respiratory: Positive for shortness of breath. Negative for chest tightness and wheezing. History of COPD and asthma, uses 4 L oxygen at night and an CPAP machine. March 2024 hospitalized for pneumonia x 2 COVID and influenza. Cardiovascular: Negative for chest pain and palpitations. Gastrointestinal: Negative for constipation, diarrhea and nausea. Genitourinary: Positive for frequency and urgency. Musculoskeletal: Positive for back pain, myalgias and neck pain. Widespread muscle and joint pain Right lower extremity below-knee amp Neurological: Negative for dizziness, weakness and headaches. Psychiatric/Behavioral: Negative for agitation, confusion and suicidal ideas. Physical Exam Physical Exam Constitutional: General: She is not in acute distress. Appearance: Normal appearance. HENT: Head: Normocephalic. Eyes: Extraocular Movements: Extraocular movements intact. Musculoskeletal: Cervical back: Tenderness present. Decreased range of motion. Lumbar back: Tenderness present. Decreased range of motion. Neurological: General: No focal deficit present. Mental Status: She is alert and oriented to person, place, and time. GCS: GCS eye subscore is 4. GCS verbal subscore is 5. GCS motor subscore is 6. Cranial Nerves: Cranial nerves 2-12 are intact. Sensory: Sensation is intact. Motor: Weakness present. Coordination: Coordination abnormal. Gait: Gait abnormal. Comments: Right below-knee amp, in motorized wheelchair Psychiatric: Attention and Perception: Attention and perception normal. Mood and Affect: Mood and affect normal. Speech: Speech normal. Behavior: Behavior normal. Thought Content: Thought content normal. Judgment: Judgment normal. Last Recorded Vitals Blood pressure 115/65, pulse 66, temperature 35.6 C (96.1 F), temperature source Temporal, resp. rate 10, height 1.499 m (4' 11), weight (!) 44 kg (97 lb), SpO2 92%, not currently . Reviewed Images 06/04/2024 CT head and cervical spine without contrast FINDINGS: CT HEAD: BRAIN PARENCHYMA: No evidence of acute intraparenchymal hemorrhage or parenchymal evidence of acute large territory ischemic infarct. No mass-effect, midline shift or effacement of cerebral sulci. Leiva-white matter distinction is preserved. Global volume loss and chronic small vessel ischemic change VENTRICLES and EXTRA-AXIAL SPACES: No acute extra-axial or intraventricular hemorrhage. Ventricles and sulci are age-concordant. PARANASAL SINUSES/MASTOIDS: Mild anry-[id number]-vsuo-right mucosal thickening. CALVARIUM/ORBITS: No skull fracture. The orbits and globes are intact to the extent visualized. CT CERVICAL SPINE: Demineralization of the bones. PREVERTEBRAL SOFT TISSUES: Within normal limits. CRANIOCERVICAL JUNCTION: Intact. ALIGNMENT: No traumatic malalignment or traumatic facet widening. VERTEBRAE: No acute fracture. Vertebral body heights are maintained. Scattered mild multilevel degenerative disc disease. Vascular calcification No high-grade central canal or foraminal stenosis IMPRESSION: CT HEAD: No acute intracranial abnormality or calvarial fracture. Senescent changes CT CERVICAL SPINE: No acute fracture or traumatic malalignment of the cervical spine. Demineralization and mild degenerative changes. 04/18/2023 bone density study showed lowest T-score -3.5 in the right femur neck 12/09/2022 X-rays of her cervical and thoracic spine which showed degenerative changes in cervical spine worse at C4-5 and C5-6 and stable T- sacrum fusion Reviewed Labs Lab Results Component Value Date GLUCOSE 81 06/07/2024 CALCIUM 8.8 06/07/2024 NA 139 06/07/2024 K 4.3 06/07/2024 CO2 31 06/07/2024 CL 103 06/07/2024 BUN 15 06/07/2024 CREATININE 0.64 06/07/2024 Assessment/Plan Codi Blank is a 69 y.o. female here with her , recall past medical history of multiple back surgeries with T9 to sacrum fusion, postlaminectomy syndrome right BKA with phantom limb pain, fibromyalgia, COVID and recent pneumonia hospitalization. Who is here for follow-up for IV infusion therapy for widespread muscle and joint pain. She was previously receiving IV infusion therapy before missing multiple appointments due to COVID, and hospitalization due to pneumonia. She has fully recovered and is here seeking treatment for IV infusion therapy. She is no longer taking gabapentin or ketamine lidocaine nasal spray. She denies any new neurological or constitutional symptoms. I was able to get the patient started on IV infusion therapy tomorrow 9 AM due to a cancellation. Patient is very grateful. Provided refill of Flexeril for muscle spasms and symptom relief. Will plan for IV infusion therapy every 2 weeks with the goal of transitioning back to every 3 weeks once pain and inflammation improved. Patient verbalized understand plan of care. All questions and concerns answered. Plan At least 50% of the visit [...] treatment options, risk-factor reduction, and patient/family education. Provided refill of Flexeril for muscle spasms and symptom relief. Continue self-directed physical therapy Plan to continue with IV infusion therapy every 2 weeks for fibromyalgia symptoms management with a goal of transitioning to every 3 weeks. Healthy lifestyle and anti-inflammatory diet in addition to weight control discussed with the patient Alternative chronic pain therapies was discussed, encouraged and information was handed Return to Clinic 3 months or sooner if needed. *Please note this report has been produced using speech recognition software and may contain errors related to that system including grammar, punctuation and spelling as well as words and phrases that may be inappropriate. If there are questions or concerns, please feel free to contact me to clarify. I spent 34 minutes in the professional and overall care of this patient. ANTHONY Pittman documented in this encounter [facility] Work Phone: 06-07-2024 Plan of care note The patient's goals for the shift include The clinical goals for the shift include work with therapy Goal met. Vss. No c/o pain. Patient discharging back to [facility]. Called report to nurse Ghislaine. EMS will transport. [facility] 06-07-2024 Miscellaneous Notes The patient's goals for the shift include The clinical goals for the shift include work with therapy Goal met. Vss. No c/o pain. Patient discharging back to [facility]. Called report to nurse Ghislaine. EMS will transport. The patient's goals for the shift include The clinical goals for the shift include SPO2% will be 92% or above on 3 liters nasal cannula tonight Satting 92 and above and compliant with CPAP over night. Slept well. Uneventful night The patient's goals for the shift include The clinical goals for the shift include pulse ox to maintain 92% or greater on 3 lpm baseline without increasing oxygen Goal met. Vss. No c/o pain. Patient pleasant and forgetful. Patient rings for assist. Patient sitting in chair at this time with call light in reach. The patient's goals for the shift include The clinical goals for the shift include pulse ox > 92% without increase in O2 this shift Pt on 3l NC( baseline for pt) while awake and CPAP at HS. Pulse ox > 92% this shift The patient's goals for the shift include up to chair The clinical goals for the shift include tolerate 3L NC Over the shift, the patient did not make progress toward the following goals. Pt O2 increased to 4L NC and humidifier added. Given tylenol x1 for c/o neck pain. Up to chair with x1 assist with walker, tolerated well. Problem: Respiratory Goal: Wean oxygen to maintain O2 saturation per order/standard this shift Outcome: Not Progressing Problem: Pain - Adult Goal: Verbalizes/displays adequate comfort level or baseline comfort level Outcome: Progressing Problem: Safety - Adult Goal: Free from fall injury Outcome: Met Problem: Discharge Planning Goal: Discharge to home or other facility with appropriate resources Outcome: Progressing Problem: Chronic Conditions and Co-morbidities Goal: Patient's chronic conditions and co-morbidity symptoms are monitored and maintained or improved Outcome: Progressing Problem: Nutrition Goal: Nutrient intake appropriate for maintaining nutritional needs Outcome: Met Problem: Skin Goal: Decreased wound size/increased tissue granulation at next dressing change Outcome: Met Flowsheets (Taken 06/05/20241719) Decreased wound size/increased tissue granulation at next dressing change: Promote sleep for wound healing Goal: Participates in plan/prevention/treatment measures Outcome: Met Flowsheets (Taken 06/05/20241719) Participates in plan/prevention/treatment measures: Elevate heels Goal: Prevent/manage excess moisture Outcome: Met Flowsheets (Taken 06/05/20241719) Prevent/manage excess moisture: Monitor for/manage infection if present Cleanse incontinence/protect with barrier cream Goal: Prevent/minimize sheer/friction injuries Outcome: Met Flowsheets (Taken 06/05/20241719) Prevent/minimize sheer/friction injuries: HOB 30 degrees or less Turn/reposition every 2 hours/use positioning/transfer devices Use pull sheet Goal: Promote/optimize nutrition Outcome: Met Flowsheets (Taken 06/05/20241719) Promote/optimize nutrition: Monitor/record intake including meals Assist with feeding Consume > 50% meals/supplements Goal: Promote skin healing Outcome: Met Flowsheets (Taken 06/05/20241719) Promote skin healing: Turn/reposition every 2 hours/use positioning/transfer devices Protective dressings over bony prominences Assess skin/pad under line(s)/device(s) The patient's goals for the shift include The clinical goals for the shift include Patient will remain injury free during shift Over the shift, the patient did not make progress toward the following goals. Problem: Discharge Planning Goal: Discharge to home or other facility with appropriate resources Outcome: Not Progressing Problem: Chronic Conditions and Co-morbidities Goal: Patient's chronic conditions and co-morbidity symptoms are monitored and maintained or improved Outcome: Not Progressing Problem: Nutrition Goal: Nutrient intake appropriate for maintaining nutritional needs Outcome: Not Progressing Problem: Skin Goal: Promote/optimize nutrition Outcome: Not Progressing Goal: Promote skin healing Outcome: Not Progressing Problem: Fall/Injury Goal: Verbalize understanding of personal risk factors for fall in the hospital Outcome: Not Progressing Goal: Verbalize understanding of risk factor reduction measures to prevent injury from fall in the home Outcome: Not Progressing Goal: Use assistive devices by end of the shift Outcome: Not Progressing Goal: Pace activities to prevent fatigue by end of the shift Outcome: Not Progressing Problem: Pain Goal: Walks with improved pain control throughout the shift Outcome: Not Progressing Goal: Performs ADL's with improved pain control throughout shift Outcome: Not Progressing Goal: Participates in PT with improved pain control throughout the shift Outcome: Not Progressing Problem: Respiratory Goal: Clear secretions with interventions this shift Outcome: Not Progressing Goal: Minimal/no exertional discomfort or dyspnea this shift Outcome: Not Progressing Goal: Wean oxygen to maintain O2 saturation per order/standard this shift Outcome: Not Progressing Goal: Increase self care and/or family involvement in next 24 hours Outcome: Not Progressing documented in this encounter [facility] Work Phone: 06-07-2024 History of Present illness Narrative 06/07/24 0854 Discharge Planning Living Arrangements Other (Comment) ([facility]) Assistance Needed Patient to return to [facility] today - Home or Post Acute Services Other (Comment) Expected Discharge Disposition Psych ([facility]) Does the patient need discharge transport arranged? Yes RoundTrip coordination needed? Yes Has discharge transport been arranged? Yes What day is the transport expected? 06/07/24 Intensity of Service Intensity of Service 0-30 min Patient medically cleared for discharge and will be returning to [facility]. 10:00 AM Patient set up for a 10:30 AM fiber picker to return to [facility]. YAMILETH Anne aware of the time and nurse will call report. DC PLAN: [facility]. Physical Therapy Physical Therapy Evaluation Patient Name: Codi Blank Department: [facility] Room: [address] [place] [address] Today's Date: 06/06/2024 Time Calculation Start Time: 1002 Stop Time: 1020 Time Calculation (min): 18 min Assessment/Plan PT Assessment PT Assessment Results: Decreased strength, Impaired balance, Decreased mobility, Pain Rehab Prognosis: Good Barriers to Discharge Home: No anticipated barriers Evaluation/Treatment Tolerance: Patient tolerated treatment well Medical Staff Made Aware: Yes Strengths: Attitude of self, Housing layout, Support of Caregivers, Living arrangement secure Barriers to Participation: Comorbidities End of Session Communication: Bedside nurse Assessment Comment: Pt presents with slight decline from functional baseline requiring increased assistance for functional transfers s/p admission for mechanical fall. Pt reports COELHO and neck/shoulder pain since fall with intermittent dizziness. Pt is R BKA and reports she doesnt wear prosthesis due to skin irritation and has assistance at home to transfer in wheelchair if needed. Pt demonstrates decreased B LE strength, stability, mobility, and pain limiting function. PT warranted at this time to address impairments and improve functional mobility so patient can progress towards PLOF and/or safe mobility. End of Session Patient Position: Up in chair, Alarm on IP OR SWING BED PT PLAN Inpatient or Swing Bed: Inpatient PT Plan Treatment/Interventions: Transfer training, Balance training, Neuromuscular re-education, Strengthening, Therapeutic exercise, Therapeutic activity PT Plan: Ongoing PT PT Frequency: 2 times per week PT Discharge Recommendations: Low intensity level of continued care PT Recommended Transfer Status: Assist x1 PT - OK to Discharge: Yes Based on completed evaluation and care plan recommendations, no barriers to discharge to next site of care Subjective General Visit Information: General Reason for Referral: impaired mobility Referred By: PRADEEP Roach Past Medical History Relevant to Rehab: COPD 3LPM, HTN, h/o heart artery stent, TIA Family/Caregiver Present: No Prior to Session Communication: Bedside nurse Patient Position Received: Alarm off, not on at start of session, Up in chair General Comment: rahat stark, 3 L of O2, Right BKA Home Living: Home Living Type of Home: House Lives With: Spouse, Adult children Home Adaptive Equipment: Wheelchair-manual, Walker rolling or standard Home Layout: One level Home Access: Ramped entrance Bathroom Shower/Tub: Walk-in shower Bathroom Toilet: Handicapped height Bathroom Equipment: Shower chair with back, Grab bars around toilet, Grab bars in shower Prior Level of Function: Prior Function Per Pt/Caregiver Report Level of Glenn: Independent with ADLs and functional transfers, Independent with homemaking with ambulation Receives Help From: Family Prior Function Comments: has MOW; 24 hr supervision with family Precautions: Precautions Medical Precautions: Fall precautions Date/Time Vitals Session Patient Position Pulse Resp SpO2 BP MAP (mmHg) 06/06/242054 -- -- -- -- 94 % -- -- 06/06/242114 -- -- -- 18 95 % -- -- Objective Pain: Pain Assessment Pain Assessment: 0-10 0-10 (Numeric) Pain Score: 7 Pain Type: (neck, shoulders and upper back) Pain Location: Neck Cognition: Cognition Overall Cognitive Status: Within Functional Limits Arousal/Alertness: Appropriate responses to stimuli Orientation Level: Oriented X4 General Assessments: Activity Tolerance Endurance: Endurance does not limit participation in activity Strength Strength Comments: Right hip 4-/5, L LE 4/5 grossly Coordination Movements are Fluid and Coordinated: Yes Static Sitting Balance Static Sitting-Level of Assistance: Independent Dynamic Sitting Balance Dynamic Sitting-Level of Assistance: Modified independent Functional Assessments: Bed Mobility 1 Bed Mobility 1: Supine to sitting Level of Assistance 1: Modified independent Transfers Transfer: Yes Transfer 1 Technique 1: Sit to stand, Stand to sit, Stand pivot Transfer Device 1: Walker Transfer Level of Assistance 1: Modified independent Ambulation/Gait Training Ambulation/Gait Training Performed: No Extremity/Trunk Assessments: Outcome Measures: [facility] Basic Mobility Turning from your back to your side while in a flat bed without using bedrails: None Moving from lying on your back to sitting on the side of a flat bed without using bedrails: A little Moving to and from bed to chair (including a wheelchair): A little Standing up from a chair using your arms (e.g. wheelchair or bedside chair): A little To walk in hospital room: Total Climbing 3-5 steps with railing: Total Basic Mobility - Total Score: 15 Encounter Problems Encounter Problems (Active) Mobility Patient will perform stand pivot transfer Mod I with walker for increased safety Start: 06/06/24 Expected End: 06/13/24 Pt will improve R hip and L LE strength by 1/2 grade for improved functional mobility Start: 06/06/24 Expected End: 06/13/24 Pt will improve dynamic seated balance to mod I Start: 06/06/24 Expected End: 06/13/24 Pain - Adult Education Documentation Mobility Training, taught by Jj Fagan PT at 06/06/2024 10:44 PM. Learner: Patient Readiness: Acceptance Method: Explanation, Demonstration Response: Demonstrated Understanding, Verbalizes Understanding Comment: Educated on transfer techniques from chair to bed with walker. Also educated on energy conservation techniques to assist with O2 levels during activity Education Comments No comments found. 06/06/24 1306 Discharge Planning Living Arrangements Other (Comment) (Arrived from [facility]) Support Systems Spouse/significant other;Children (Patient lives with her Forrest and patients family assists) Assistance Needed Patient alert and oriented during conversation; Also spoke with son Branden Patient lives with her Forrest. Patient lives in a 1 story house with basement. There is a ramp going into the house. Patient has an amputated leg and has a prosthetic that she doesn't use 2/2 it doesn't fit right and hurts. DME: walker, cane, wheelchair, scooter, prosthetic, walk in shower, shower chair, CPAP, Oxygen 2-3 L as needed. Type of Residence Private residence Number of Stairs to Enter Residence 3 Number of Stairs Within Residence 12 Do you have animals or pets at home? No Expected Discharge Disposition Psych (GENERATIONS: Return time 06/07 by 3 pm or new referral needed) Does the patient need discharge transport arranged? Yes RoundTrip coordination needed? Yes Financial Resource Strain How hard is it for you to pay for the very basics like food, housing, medical care, and heating? Not very (per son) Housing Stability In the last 12 months, was there a time when you were not able to pay the mortgage or rent on time? N In the past 12 months, how many times have you moved where you were living? 0 At any time in the past 12 months, were you homeless or living in a long term (including now)? N Transportation Needs In the past 12 months, has lack of transportation kept you from medical appointments or from getting medications? no In the past 12 months, has lack of transportation kept you from meetings, work, or from getting things needed for daily living? No Patient Choice Provider Choice list and [facility] website (https://medicare.gov/care-kellie re#search) for post-acute Quality and Resource Measure Data were provided and reviewed with: Family Patient / Family choosing to utilize agency / facility established prior to hospitalization Yes Stroke Family Assessment Stroke Family Assessment Needed No Intensity of Service Intensity of Service >30 min Spoke with [facility]- nurse Jon and vault worker Anna- patient was admitted to [facility] 06/01 for suicidal idealation, depresssion. Spoke with son Branden- Prior to admissions, patient was living with her Forrest. Plan is for patient to return to [facility]. TCC informed by admissions at [facility] ([facility]) patient can return if returned by 3 pm 06/07. TCC following. 3:00 PM Spoke with medical team at Discharge planning meeting- Patient will be placed in will call. If she is medically cleared, she will return to [facility] before 3 pm. Codi Blank is a 69 y.o. female on day 1 of admission presenting with Pneumonia due to infectious organism. Subjective No overnight events reported. Patient remains on 3L O2 this morning, wore BiPAP overnight. She denies any chest pain or shortness of breath at rest. Cough is improving. Levaquin was discontinued today given negative procal; patient continues on steroids and DuoNebs for COPD exacerbation. Plan of care discussed with patient, all questions answered. Objective Physical Exam Constitutional: General: She is not in acute distress. Appearance: She is not toxic-appearing. HENT: Head: Normocephalic and atraumatic. Mouth/Throat: Mouth: Mucous membranes are moist. Eyes: Conjunctiva/sclera: Conjunctivae normal. Cardiovascular: Rate and Rhythm: Normal rate and regular rhythm. Pulmonary: Effort: No respiratory distress. Breath sounds: Rhonchi present. No wheezing. Comments: On 3L O2 Abdominal: General: There is no distension. Palpations: Abdomen is soft. Tenderness: There is no abdominal tenderness. Musculoskeletal: General: No swelling. Skin: General: Skin is warm and dry. Neurological: Mental Status: She is alert and oriented to person, place, and time. Psychiatric: Mood and Affect: Mood normal. Behavior: Behavior normal. Last Recorded Vitals Blood pressure 128/72, pulse 78, temperature 36.2 C (97.2 F), temperature source Temporal, resp. rate 18, height 1.448 m (4' 9), weight 50.2 kg (110 lb 10.7 oz), SpO2 95%, not currently . Intake/Output last 3 Shifts: I/O last 3 completed shifts: In: 1690 (33.7 mL/kg) [P.O.:1340; IV Piggyback:350] Out: 1000 (19.9 mL/kg) [Urine:1000 (0.6 mL/kg/hr)] Weight: 50.2 kg Relevant Results Scheduled medications baclofen, 10 mg, oral, BID busPIRone, 10 mg, oral, BID clopidogrel, 75 mg, oral, Daily donepezil, 10 mg, oral, Nightly DULoxetine, 60 mg, oral, BID enoxaparin, 40 mg, subcutaneous, q24h fluticasone, 2 spray, Each Nostril, Daily fluticasone furoate-vilanteroL, 1 puff, inhalation, Daily guaiFENesin, 600 mg, oral, BID ipratropium-albuteroL, 3 mL, nebulization, TID levothyroxine, 125 mcg, oral, Daily midodrine, 5 mg, oral, BID pantoprazole, 40 mg, oral, Daily before breakfast predniSONE, 40 mg, oral, Daily QUEtiapine, 25 mg, oral, Nightly Continuous medications PRN medications PRN medications: acetaminophen, benzocaine-menthol, cyclobenzaprine, dextromethorphan-guaifenesin, haloperidol lactate, ipratropium-albuteroL, LORazepam, ondansetron, oxygen, oxygen, polyethylene glycol Results for orders placed or performed during the hospital encounter of 02/08/25 (from the past 24 hours) CBC Result Value Ref Range WBC 8.9 4.4 - 11.3 x10*3/uL nRBC 0.0 0.0 - 0.0 /100 WBCs RBC 3.24 (L) 4.00 - 5.20 x10*6/uL Hemoglobin 9.0 (L) 12.0 - 16.0 g/dL Hematocrit 29.1 (L) 36.0 - 46.0 % MCV 90 80 - 100 fL MCH 27.8 26.0 - 34.0 pg MCHC 30.9 (L) 32.0 - 36.0 g/dL RDW 21.2 (H) 11.5 - 14.5 % Platelets 553 (H) 150 - 450 x10*3/uL Basic Metabolic Panel Result Value Ref Range Glucose 197 (H) 74 - 99 mg/dL Sodium 136 136 - 145 mmol/L Potassium 4.4 3.5 - 5.3 mmol/L Chloride 101 98 - 107 mmol/L Bicarbonate 29 21 - 32 mmol/L Anion Gap 10 10 - 20 mmol/L Urea Nitrogen 12 6 - 23 mg/dL Creatinine 0.64 0.50 - 1.05 mg/dL eGFR >90 >60 mL/min/1.73m*2 Calcium 8.8 8.6 - 10.3 mg/dL XR chest 1 view Result Date: 06/04/2024 Interpreted By: Flaco Golden, STUDY: XR CHEST 1 VIEW; 06/04/2024 5:51 pm INDICATION: Signs/Symptoms:Hypoxemia. COMPARISON: None. ACCESSION NUMBER(S): [id number] ORDERING CLINICIAN: RANDAL SYKES FINDINGS: CARDIOMEDIASTINAL SILHOUETTE: Cardiomediastinal silhouette is normal in size and configuration. LUNGS: There is patchy airspace disease at the bases worse on the left. Bilateral small effusions. Lungs are hyperinflated. There is no edema ABDOMEN: No remarkable upper abdominal findings. BONES: Postsurgical changes the thoracolumbar junction 1. Patchy bibasilar airspace disease worse on the left along with bilateral effusions. Underlying pneumonia and atelectasis in the differential. Radiographic follow-up to resolution in 2-3 weeks is recommended. MACRO: None Signed by: Flaco Golden 06/04/2024 5:56 PM Dictation workstation: [id number] XR hand right 3+ views Result Date: 06/04/2024 Interpreted By: Flaco Golden, STUDY: XR HAND RIGHT 3+ VIEWS; ; 06/04/2024 5:51 pm INDICATION: Signs/Symptoms:contusion. COMPARISON: None. ACCESSION NUMBER(S): [id number] ORDERING CLINICIAN: RANDAL SYKES FINDINGS: Right hand, three views There is no fracture. There is no dislocation. There are no degenerative changes. There is no lytic or sclerotic lesion. There is no soft tissue abnormality seen. No acute abnormality in the right hand MACRO: None Signed by: Flaco Golden 06/04/2024 5:56 PM Dictation workstation: [id number] CT head W O contrast trauma protocol Result Date: 06/04/2024 Interpreted By: Hemanth Quezada, STUDY: CT HEAD W/O CONTRAST TRAUMA PROTOCOL; CT CERVICAL SPINE WO IV CONTRAST; 06/04/2024 4:04 pm INDICATION: Signs/Symptoms:Fall on thinners ACCESSION NUMBER(S): [id number]; [id number] ORDERING CLINICIAN: RANDAL SYKES TECHNIQUE: Axial noncontrast CT images of head with coronal and sagittal reconstructed images. Axial noncontrast CT images of the cervical spine with coronal and sagittal reconstructed images. FINDINGS: CT HEAD: BRAIN PARENCHYMA: No evidence of acute intraparenchymal hemorrhage or parenchymal evidence of acute large territory ischemic infarct. No mass-effect, midline shift or effacement of cerebral sulci. Leiva-white matter distinction is preserved. Global volume loss and chronic small vessel ischemic change VENTRICLES and EXTRA-AXIAL SPACES: No acute extra-axial or intraventricular hemorrhage. Ventricles and sulci are age-concordant. PARANASAL SINUSES/MASTOIDS: Mild ubbg-nhwwful-mvsd-right mucosal thickening. CALVARIUM/ORBITS: No skull fracture. The orbits and globes are intact to the extent visualized. CT CERVICAL SPINE: Demineralization of the bones. PREVERTEBRAL SOFT TISSUES: Within normal limits. CRANIOCERVICAL JUNCTION: Intact. ALIGNMENT: No traumatic malalignment or traumatic facet widening. VERTEBRAE: No acute fracture. Vertebral body heights are maintained. Scattered mild multilevel degenerative disc disease. Vascular calcification No high-grade central canal or foraminal stenosis CT HEAD: No acute intracranial abnormality or calvarial fracture. Senescent changes CT CERVICAL SPINE: No acute fracture or traumatic malalignment of the cervical spine. Demineralization and mild degenerative changes. Signed by: Hemanth Quezada 06/04/2024 4:24 PM Dictation workstation: [id number] CT cervical spine wo IV contrast Result Date: 06/04/2024 Interpreted By: Hemanth Quezada, STUDY: CT HEAD W/O CONTRAST TRAUMA PROTOCOL; CT CERVICAL SPINE WO IV CONTRAST; 06/04/2024 4:04 pm INDICATION: Signs/Symptoms:Fall on thinners ACCESSION NUMBER(S): [id number]; [id number] ORDERING CLINICIAN: RANDAL SYKES TECHNIQUE: Axial noncontrast CT images of head with coronal and sagittal reconstructed images. Axial noncontrast CT images of the cervical spine with coronal and sagittal reconstructed images. FINDINGS: CT HEAD: BRAIN PARENCHYMA: No evidence of acute intraparenchymal hemorrhage or parenchymal evidence of acute large territory ischemic infarct. No mass-effect, midline shift or effacement of cerebral sulci. Leiva-white matter distinction is preserved. Global volume loss and chronic small vessel ischemic change VENTRICLES and EXTRA-AXIAL SPACES: No acute extra-axial or intraventricular hemorrhage. Ventricles and sulci are age-concordant. PARANASAL SINUSES/MASTOIDS: Mild ccvo-nsesvll-oqyj-right mucosal thickening. CALVARIUM/ORBITS: No skull fracture. The orbits and globes are intact to the extent visualized. CT CERVICAL SPINE: Demineralization of the bones. PREVERTEBRAL SOFT TISSUES: Within normal limits. CRANIOCERVICAL JUNCTION: Intact. ALIGNMENT: No traumatic malalignment or traumatic facet widening. VERTEBRAE: No acute fracture. Vertebral body heights are maintained. Scattered mild multilevel degenerative disc disease. Vascular calcification No high-grade central canal or foraminal stenosis CT HEAD: No acute intracranial abnormality or calvarial fracture. Senescent changes CT CERVICAL SPINE: No acute fracture or traumatic malalignment of the cervical spine. Demineralization and mild degenerative changes. Signed by: Hemanth Quezada 06/04/2024 4:24 PM Dictation workstation: [id number] CT head wo IV contrast Result Date: 05/12/2024 * * *Final Report* * * DATE OF EXAM: May 12 2024 7:27AM [facility] 0504 - CT BRAIN WO IVCON / PROCEDURE REASON: Mental status change, unknown cause * * * * Physician Interpretation * * * * EXAMINATION: CT BRAIN WO IVCON CLINICAL HISTORY: Mental status changes TECHNIQUE: Serial axial images without IV contrast were obtained from the vertex to the foramen magnum. MQ: [id number]_3 CT Radiation dose: Integrated Dose-Length Product (DLP) for this visit = 706.22 mGy*cm CT Dose Reduction Employed: No dose reduction techniques were required COMPARISON: None. RESULT: Localizer images: Unremarkable. Post-operative change: None. Acute change: No evidence of an acute infarct or other acute parenchymal process. Hemorrhage: No evidence of acute intracranial hemorrhage. ECASS hemorrhagic transformation score: Not Applicable Mass Lesion / Mass Effect: There is no evidence of an intracranial mass or extraaxial fluid collection. No significant mass effect. Chronic change: None apparent. Parenchyma: There is no significant volume loss. The brain parenchyma is otherwise within normal limits for age. Ventricles: The ventricles are within normal limits of size and configuration for age. Paranasal sinuses and skull base: Air-fluid levels in sphenoid sinuses. The skull base and imaged soft tissues are unremarkable. IMPRESSION: No evidence of acute intracranial process. Air-fluid levels in sphenoid sinuses and findings which may be seen with Tailor Fitter: SKYLER Transcribe Date/Time: May 12 2024 7:45A Dictated by : DWIGHT CALLE MD This examination was interpreted and the report reviewed and electronically signed by: DWIGHT CALLE MD on May 12 2024 7:48AM EST Assessment/Plan Assessment & Plan Fall Secondary fibromyalgia Acute on chronic hypoxic respiratory failure (Multi) COPD (chronic obstructive pulmonary disease) (Multi) Hypotension Hypothyroidism Normocytic anemia CAD (coronary artery disease) Depression Dementia #Acute on chronic hypoxic respiratory failure #COPD, in acute exacerbation - Wears 3L O2 as needed/CPAP at bedtime; reports recent productive cough, poor appetite - VBG: pH 7.39/pCO2 52/pO2 23 - CXR: Patchy bibasilar airspace disease worse on the left along with bilateral effusions. Underlying pneumonia and atelectasis in the differential. Radiographic follow-up to resolution in 2-3 weeks is recommended. - Received Vancomycin, Levaquin and Meropenem in the ED - WBC 14.7 > 9.2 > 8.9 - BNP 94 - COVID, flu negative - MRSA nares negative - Procal 0.05 - BCx negative x 1 day - Sputum culture if able - Received 2 days of Levaquin; now discontinued after discussion with pharmacy given clinical improvement, negative procal, no leukocytosis - Continue prednisone 40 mg every day (day 2) - Continue Breo - DuoNebs TID - Mucinex BID - Tylenol PRN for fever - RT eval and treat protocol - Bronchial hygiene - Monitor SpO2 continuously - Wean O2 as tolerated; patient currently on 3L O2 continuously #Mechanical fall - Brought to ED after mechanical fall, no loss of consciousness - CT head/C-spine negative for acute traumatic findings - PT/OT evals #Anemia, normocytic - H/H 8.6/28.7 > 9.0/29.1 - MCV 91 > 90 - Monitor for active bleeding - Daily CBC #Hypothyroidism - continue levothyroxine 125 mcg every day #Hypotension - BP stable, 128/72 this morning - Continue midodrine 5 mg BID - Monitor BP #CAD - Continue clopidogrel 75 mg every day #Fibromyalgia - Continue baclofen 10 mg BID, duloxetine 60 mg BID #Depression #Dementia - Currently at [facility] for SI - Continue buspirone 10 mg BID, donepezil 10 mg at bedtime, quetiapine 25 mg at bedtime, Ativan 0.5 mg BID PRN for anxiety, Haldol 5 mg IM TID PRN for agitation - Delirium precautions: Frequent reorientation, day/night normalization, shades open for sunlight, provide glasses/hearing aids as needed - TCC on for discharge planning DVT PPx: Lovenox GI PPx: Protonix Diet: Regular Code Status: Full Disposition: Patient requires inpatient management at this time. Elena Lopez PA-C Occupational Therapy Evaluation Patient Name: Codi Blank Department: [facility] Room: [address] [place] [address] Today's Date: 06/06/2024 Time Calculation Start Time: 852 Stop Time: 904 Time Calculation (min): 12 min Assessment IP OT Assessment OT Assessment: Pt. is a 69 y.o. female referred to occupational therapy for imparied self-care 2/2 admission for pneumonia and fall. Pt. appears to be at their baseline and does not require further OT services at this time. Prognosis: Good Barriers to Discharge Home: No anticipated barriers Evaluation/Treatment Tolerance: Patient tolerated treatment well Medical Staff Made Aware: Yes End of Session Communication: Bedside nurse End of Session Patient Position: Up in chair, Alarm on Plan: No Skilled OT: Safe to return home OT Frequency: OT eval only OT Discharge Recommendations: No further acute OT, No OT needed after discharge OT - OK to Discharge: Yes (Based on completed evaluation and care plan recommendations, no barriers to discharge to next site of care) Subjective Current Problem: 1. Pneumonia due to infectious organism 2. Fall, initial encounter 3. Closed head injury, initial encounter 4. Strain of neck muscle, initial encounter 5. Aspiration pneumonia of both lower lobes, unspecified aspiration pneumonia type (Multi) General: General Reason for Referral: impaired self-care d/t admission for pneumonia Referred By: PRADEEP Roach Past Medical History Relevant to Rehab: COPD 3LPM, HTN, h/o heart artery stent, TIA Family/Caregiver Present: No Prior to Session Communication: Bedside nurse Patient Position Received: Bed, 2 rail up, Alarm off, not on at start of session General Comment: rahat stark, Precautions: Medical Precautions: Fall precautions Pain: Pain Assessment Pain Assessment: 0-10 0-10 (Numeric) Pain Score: 5 - Moderate pain (reports 5-9 pain in neck and shoulders) Pain Type: Acute pain Pain Location: Neck Objective Cognition: Overall Cognitive Status: Within Functional Limits Arousal/Alertness: Appropriate responses to stimuli Orientation Level: Oriented X4 Home Living: Type of Home: House Lives With: Spouse, Adult children Home Adaptive Equipment: Wheelchair-manual, Walker rolling or standard (rollator) Home Layout: One level Home Access: Ramped entrance Bathroom Shower/Tub: Walk-in shower Bathroom Toilet: Handicapped height Bathroom Equipment: Shower chair with back, Grab bars around toilet, Grab bars in shower Prior Function: Level of Glenn: Independent with ADLs and functional transfers, Independent with homemaking with ambulation Receives Help From: Family ADL Assistance: Independent Homemaking Assistance: Independent Ambulatory Assistance: Independent Prior Function Comments: has MOW; 24 hr supervision with family IADL History: Homemaking Responsibilities: Yes Meal Prep Responsibility: Secondary Current License: No ADL: Eating Assistance: Independent (anticipated) Grooming Assistance: Independent (anticipated) Bathing Assistance: Stand by (anticipated) UE Dressing Assistance: Independent (anticipated) LE Dressing Assistance: Independent Toileting Assistance with Device: Modified independent (anticipated) Activity Tolerance: Endurance: Endurance does not limit participation in activity Bed Mobility/Transfers: Bed Mobility Bed Mobility: Yes Bed Mobility 1 Bed Mobility 1: Supine to sitting Level of Assistance 1: Modified independent Bed Mobility Comments 1: HOB elevated Transfers Transfer: Yes Transfer 1 Transfer From 1: Bed to Transfer to 1: Chair with arms Technique 1: Sit to stand, Stand to sit, Stand pivot Transfer Device 1: Walker Transfer Level of Assistance 1: Independent Functional Mobility: Functional Mobility Functional Mobility Performed: No Sitting Balance: Static Sitting Balance Static Sitting-Balance Support: Feet supported Static Sitting-Level of Assistance: Independent Dynamic Sitting Balance Dynamic Sitting-Balance Support: Feet supported Dynamic Sitting-Level of Assistance: Independent Dynamic Sitting-Balance: Forward lean Standing Balance: Static Standing Balance Static Standing-Balance Support: Bilateral upper extremity supported Static Standing-Level of Assistance: Modified Independent Dynamic Standing Balance Dynamic Standing-Balance Support: Bilateral upper extremity supported Dynamic Standing-Level of Assistance: Modified independent Dynamic Standing-Balance: Turning IADL's: Homemaking Responsibilities: Yes Meal Prep Responsibility: Secondary Current License: No Vision: Sensation: Sensation Comment: denies deficits Strength: Strength Comments: BUE: grossly 4/5 throughout Coordination: Movements are Fluid and Coordinated: Yes Hand Function: Hand Function Gross Grasp: Functional Coordination: Functional Extremities: RUE RUE : Within Functional Limits and LUE LUE: Within Functional Limits Outcome Measures: [facility] Daily Activity Putting on and taking off regular lower body clothing: None Bathing (including washing, rinsing, drying): A little Putting on and taking off regular upper body clothing: None Toileting, which includes using toilet, bedpan or urinal: None Taking care of personal grooming such as brushing teeth: None Eating Meals: None Daily Activity - Total Score: 23 and OT Adult Other Outcome Measures 4AT: 0 Patient's 4AT score: Alertness: 0 - Normal (fully alert, but not agitated, throughout assessment) AMT4: 0 - No mistakes Attention: 0 - Achieves 7 months or more correctly Acute change or fluctuating course: 0 - No 4 AT Score: 0/12 4 AT completed with patient to assess delirium. The 4AT assesses 4 items including alertness, abbreviated mental test (AMT4), Attention, and acute change or fluctuating course. The test is scored out of 12 points. Score indications are as follows: 0: delirium or severe cognitive impairment unlikely (delirium is still possible if acute change or fluctuating course information is incomplete and prior cognitive status is not obtained) 1-3: possible cognitive impairment 4 or above: possible delirium +/- cognitive impairment The 4AT is scored as follows: Alertness: Normal (fully alert, but not agitated, throughout assessment) 0 Mild Sleepiness for <10 seconds after waking, then normal 0 Clearly Abnormal 4 AMT4: (age, date of , place (name of hospital or building), current year) No mistakes 0 1 mistake 1 2 or more mistakes/untestable 2 Attention: (months of they year in backwards order starting with March) Achieves 7 months or more correctly 0 Starts but scores <7 months/refuses to start 1 Untestable (cannot start because unwell, drowsy, inattentive) 2 Acute change or fluctuating Course: (change in cognition or mental function in last 2 wks and is still evident in last 24 hrs. No 0 Yes 4 Education Documentation Body Mechanics, taught by Juany Santa OT at 06/06/2024 12:11 PM. Learner: Patient Readiness: Acceptance Method: Explanation Response: Verbalizes Understanding Comment: Edu on POC and DC rec. Edu on safety with transfers. ADL Training, taught by Juany Santa OT at 06/06/2024 12:11 PM. Learner: Patient Readiness: Acceptance Method: Explanation Response: Verbalizes Understanding Comment: Edu on POC and DC rec. Edu on safety with transfers. Education Comments No comments found. Goals: Not established patient at her baseline. Pharmacy Medication History Review Codi Blank is a 69 y.o. female admitted for Pneumonia due to infectious organism. Pharmacy reviewed the patient's [id number] medications and allergies for accuracy. Sources used to confirm medication list: Facility List Informant: Caregiver/Facility Informant credibility: N/A (Informant not utilized, facility/pharmacy/med list used - list last updated on 06/04/2024) Total number of adjustments: 10 Medications Added Medications Removed Medications Adjusted Adjustments Made Ensure Cholecalciferol Pantoprazole Two 20 MG tabs --> one 40 MG tab Tylenol Dulera Albuterol QID PRN --> Q4H PRN + indications Spiriva Cyclobenzaprine One 5 MG tab --> 1/2 10 MG tab Lorazepam 1/2 1 MG tab --> one 5 MG tab Duloxetine 2 caps once daily --> 1 cap BID The list below reflectives the updated QUALITY CONTROL AUDITOR list. Please review each medication in order reconciliation for additional clarification and justification. Medications Prior to Admission Medication Sig Dispense Refill Last Dose/Taking albuterol 90 mcg/actuation inhaler Inhale 2 puffs every 4 hours if needed for shortness of breath. Past Week baclofen (Lioresal) 10 mg tablet Take 1 tablet (10 mg) by mouth 2 times a day. 60 tablet 3 06/04/2024 busPIRone (Buspar) 10 mg tablet Take 1 tablet (10 mg) by mouth 2 times a day. 06/04/2024 clopidogrel (Plavix) 75 mg tablet Take 1 tablet (75 mg) by mouth once daily. 06/04/2024 cyclobenzaprine (Flexeril) 10 mg tablet Take 0.5 tablets (5 mg) by mouth 3 times a day as needed for muscle spasms. Past Week donepezil (Aricept) 10 mg tablet Take 1 tablet (10 mg) by mouth once daily at bedtime. 06/03/2024 DULoxetine (Cymbalta) [address] capsule Take 1 capsule (60 mg) by mouth 2 times a day. 06/04/2024 ergocalciferol (Vitamin D-2) 1.25 MG (51621 UT) capsule Take 1 capsule (1,250 mcg) by mouth 1 (one) time per week. On 's Past Week fluticasone propion-salmeteroL (Advair Diskus) 250-50 mcg/dose diskus inhaler Inhale 1 puff 2 times a day. Rinse mouth with water after use to reduce aftertaste and incidence of candidiasis. Do not swallow. 06/04/2024 haloperidol lactate (Haldol) 5 mg/mL injection Inject 1 mL (5 mg) into the muscle 3 times a day as needed for agitation. Past Month levothyroxine (Synthroid, Levoxyl) 125 mcg tablet Take 1 tablet (125 mcg) by mouth early in the morning.. On an empty stomach @ 06:00. Must be taken on an empty stomach, 2 hours before meals. 06/04/2024 LORazepam (Ativan) 0.5 mg tablet Take 1 tablet (0.5 mg) by mouth 2 times a day as needed for anxiety. Past Week midodrine (Proamatine) 5 mg tablet Take 1 tablet (5 mg) by mouth 2 times a day. Do not give last dose after 6 PM. 06/04/2024 pantoprazole (ProtoNix) 40 mg EC tablet Take 1 tablet (40 mg) by mouth once daily. Do not crush, chew, or split. 06/04/2024 QUEtiapine (SEROquel) 200 mg tablet Take 25 mg by mouth once daily at bedtime. 06/03/2024 acetaminophen (Tylenol 8 HOUR) 650 mg ER tablet Take 2 tablets (650 mg) by mouth every 6 hours if needed (for pain. Not to exceed 3 MG in 24 HRS). Do not crush, chew, or split. lactose-reduced food (ENSURE ORAL) Take 1 bottle by mouth 4 times a day before meals. The list below reflectives the updated allergy list. Please review each documented allergy for additional clarification and justification. Allergies Reviewed by Tea Kwok RN on 06/04/2024 Severity Reactions Comments Adhesive Medium Hives REDNESS Adhesive Tape-silicones Medium Itching, Other blisters Cefaclor Medium Hives, Itching Clarithromycin Medium Hives, Itching Doxycycline Medium Hives, Itching Penicillins Medium Hives, Itching Sulfa (sulfonamide Antibiotics) Medium Hives Sulfamethoxazole Medium Itching, Nausea/vomiting Below are additional concerns with the patient's QUALITY CONTROL AUDITOR list. Reviewed medication list from [facility]. Please review changes made in the chart above. Claudine Crouch CPhT Medication History Carpenter Dennis 8-4:30 Available via [employer] Secure Chat OR documented in this encounter [facility] Work Phone: 06-07-2024 Plan of care note The patient's goals for the shift include The clinical goals for the shift include SPO2% will be 92% or above on 3 liters nasal cannula tonight Satting 92 and above and compliant with CPAP over night. Slept well. Uneventful night [facility] Work Phone: 06-06-2024 Nurse Note Assumed care of pt. No needs c/o or distress. Call light in reach [facility] 06-06-2024 Nurse Note Assumed care of pt. No needs c/o or distress. Call light in reach documented in this encounter [facility] Work Phone: 06-06-2024 Plan of care note The patient's goals for the shift include The clinical goals for the shift include pulse ox to maintain 92% or greater on 3 lpm baseline without increasing oxygen Goal met. Vss. No c/o pain. Patient pleasant and forgetful. Patient rings for assist. Patient sitting in chair at this time with call light in reach. [facility] Work Phone: 06-06-2024 Plan of care note The patient's goals for the shift include The clinical goals for the shift include pulse ox > 92% without increase in O2 this shift Pt on 3l NC( baseline for pt) while awake and CPAP at HS. Pulse ox > 92% this shift [facility] 06-05-2024 Plan of care note The patient's goals for the shift include up to chair The clinical goals for the shift include tolerate 3L NC Over the shift, the patient did not make progress toward the following goals. Pt O2 increased to 4L NC and humidifier added. Given tylenol x1 for c/o neck pain. Up to chair with x1 assist with walker, tolerated well. Problem: Respiratory Goal: Wean oxygen to maintain O2 saturation per order/standard this shift Outcome: Not Progressing Problem: Pain - Adult Goal: Verbalizes/displays adequate comfort level or baseline comfort level Outcome: Progressing Problem: Safety - Adult Goal: Free from fall injury Outcome: Met Problem: Discharge Planning Goal: Discharge to home or other facility with appropriate resources Outcome: Progressing Problem: Chronic Conditions and Co-morbidities Goal: Patient's chronic conditions and co-morbidity symptoms are monitored and maintained or improved Outcome: Progressing Problem: Nutrition Goal: Nutrient intake appropriate for maintaining nutritional needs Outcome: Met Problem: Skin Goal: Decreased wound size/increased tissue granulation at next dressing change Outcome: Met Flowsheets (Taken 06/05/20241719) Decreased wound size/increased tissue granulation at next dressing change: Promote sleep for wound healing Goal: Participates in plan/prevention/treatment measures Outcome: Met Flowsheets (Taken 06/05/20241719) Participates in plan/prevention/treatment measures: Elevate heels Goal: Prevent/manage excess moisture Outcome: Met Flowsheets (Taken 06/05/20241719) Prevent/manage excess moisture: Monitor for/manage infection if present Cleanse incontinence/protect with barrier cream Goal: Prevent/minimize sheer/friction injuries Outcome: Met Flowsheets (Taken 06/05/20241719) Prevent/minimize sheer/friction injuries: HOB 30 degrees or less Turn/reposition every 2 hours/use positioning/transfer devices Use pull sheet Goal: Promote/optimize nutrition Outcome: Met Flowsheets (Taken 06/05/20241719) Promote/optimize nutrition: Monitor/record intake including meals Assist with feeding Consume > 50% meals/supplements Goal: Promote skin healing Outcome: Met Flowsheets (Taken 06/05/20241719) Promote skin healing: Turn/reposition every 2 hours/use positioning/transfer devices Protective dressings over bony prominences Assess skin/pad under line(s)/device(s) [facility] 06-05-2024 History and physical note History Of Present Illness Codi Sobiesienski is a 69 y.o. female presenting with mechanical fall. Patient was brought to the [place] ED after sustaining a mechanical fall at [facility]. Patient was brought in as a trauma alert; imaging was negative for acute traumatic findings. CXR showed patchy bibasilar airspace disease, left worse than right. Patient has a history of COPD and wears 3L O2 as needed; she wears CPAP for sleep. She does report a recent productive cough with green/yellow sputum and some nausea. No chest pain, fevers, or chills reported. Patient required 3L O2 continuously in the ED for SpO2 77% on room air at rest. VBG showed pH 7.39/pCO2 52/pO2 23. Flu, COVID negative. Labs were significant for WBC 14.7, H/H 9.4/32.1. Patient was given Meropenem, Vancomycin, and Toradol in the ED. She was admitted to med/surg for further care. Past Medical History Past Medical History: Diagnosis Date Essential (primary) hypertension 01/10/2020 HTN (hypertension), benign Presence of coronary angioplasty implant and graft 02/21/2021 H/O heart artery stent Transient cerebral ischemic attack, unspecified 01/10/2020 TIA (transient ischemic attack) Surgical History Past Surgical History: Procedure Laterality Date OTHER SURGICAL HISTORY 02/21/2021 Lower extremity amputation below knee OTHER SURGICAL HISTORY 02/21/2021 Cholecystectomy OTHER SURGICAL HISTORY 02/21/2021 Sinus surgery OTHER SURGICAL HISTORY 02/21/2021 Carpal tunnel surgery OTHER SURGICAL HISTORY 02/21/2021 Tonsillectomy OTHER SURGICAL HISTORY 02/21/2021 Back surgery OTHER SURGICAL HISTORY 02/21/2021 Hysterectomy OTHER SURGICAL HISTORY 02/21/2021 Thyroidectomy OTHER SURGICAL HISTORY 02/21/2021 Knee surgery OTHER SURGICAL HISTORY 02/21/2021 Bunionectomy Social History She reports that she quit smoking about 13 months ago. Her smoking use included cigarettes. She started smoking about 41 years ago. She has a 10 pack-year smoking history. She has been exposed to tobacco smoke. She has never used smokeless tobacco. She reports that she does not currently use alcohol. She reports that she does not currently use drugs. Family History Family History Problem Relation Name Age of Onset Heart attack Father Allergies Adhesive, Adhesive tape-silicones, Cefaclor, Clarithromycin, Doxycycline, Penicillins, Sulfa (sulfonamide antibiotics), and Sulfamethoxazole Review of Systems Constitutional: Positive for appetite change. Negative for chills and fever. Respiratory: Positive for cough and shortness of breath. Cardiovascular: Negative for chest pain. Gastrointestinal: Positive for nausea. Negative for abdominal pain, diarrhea and vomiting. Genitourinary: Negative for difficulty urinating. All other systems reviewed and are negative. Physical Exam Constitutional: General: She is not in acute distress. Appearance: She is not toxic-appearing. HENT: Head: Normocephalic and atraumatic. Mouth/Throat: Mouth: Mucous membranes are moist. Eyes: Conjunctiva/sclera: Conjunctivae normal. Cardiovascular: Rate and Rhythm: Normal rate and regular rhythm. Pulmonary: Effort: No respiratory distress. Breath sounds: No wheezing. Comments: Diminished breath sounds, on 3L O2 via NC with SpO2 92% Abdominal: General: There is no distension. Palpations: Abdomen is soft. Tenderness: There is no abdominal tenderness. Musculoskeletal: Right lower leg: No edema. Left lower leg: No edema. Skin: General: Skin is warm and dry. Neurological: Mental Status: She is alert and oriented to person, place, and time. Psychiatric: Mood and Affect: Mood normal. Behavior: Behavior normal. Last Recorded Vitals Blood pressure 138/63, pulse 87, temperature 36.6 C (97.9 F), temperature source Temporal, resp. rate 18, height 1.448 m (4' 9), weight 50.2 kg (110 lb 10.7 oz), SpO2 96%, not currently . Relevant Results Scheduled medications baclofen, 10 mg, oral, BID busPIRone, 10 mg, oral, BID clopidogrel, 75 mg, oral, Daily donepezil, 10 mg, oral, Nightly donepezil, , , DULoxetine, 60 mg, oral, Daily enoxaparin, 40 mg, subcutaneous, q24h fluticasone, 2 spray, Each Nostril, Daily fluticasone furoate-vilanteroL, 1 puff, inhalation, Daily guaiFENesin, 600 mg, oral, BID ipratropium-albuteroL, 3 mL, nebulization, TID levoFLOXacin, 750 mg, intravenous, q48h levothyroxine, 125 mcg, oral, Daily midodrine, 5 mg, oral, BID pantoprazole, 40 mg, oral, Daily before breakfast QUEtiapine, , , QUEtiapine, 25 mg, oral, Nightly tiotropium, 2 puff, inhalation, Daily Continuous medications PRN medications PRN medications: acetaminophen, benzocaine-menthol, cyclobenzaprine, dextromethorphan-guaifenesin, donepezil, haloperidol lactate, ipratropium-albuteroL, LORazepam, ondansetron, oxygen, polyethylene glycol, QUEtiapine Results for orders placed or performed during the hospital encounter of 06/04/24 (from the past 24 hours) Blood Gas Venous Full Panel Result Value Ref Range POCT pH, Venous 7.39 7.33 - 7.43 pH POCT pCO2, Venous 52 (H) 41 - 51 mm Hg POCT pO2, Venous 23 (L) 35 - 45 mm Hg POCT SO2, Venous 26 (L) 45 - 75 % POCT Oxy Hemoglobin, Venous 25.7 (L) 45.0 - 75.0 % POCT Hematocrit Calculated, Venous 26.0 (L) 36.0 - 46.0 % POCT Sodium, Venous 139 136 - 145 mmol/L POCT Potassium, Venous 3.8 3.5 - 5.3 mmol/L POCT Chloride, Venous 104 98 - 107 mmol/L POCT Ionized Calicum, Venous 1.25 1.10 - 1.33 mmol/L POCT Glucose, Venous 112 (H) 74 - 99 mg/dL POCT Lactate, Venous 0.9 0.4 - 2.0 mmol/L POCT Base Excess, Venous 5.7 (H) -2.0 - 3.0 mmol/L POCT HCO3 Calculated, Venous 31.5 (H) 22.0 - 26.0 mmol/L POCT Hemoglobin, Venous 8.7 (L) 12.0 - 16.0 g/dL POCT Anion Gap, Venous 7.0 (L) 10.0 - 25.0 mmol/L Patient Temperature FiO2 32 % Influenza A, and B PCR Result Value Ref Range Flu A Result Not Detected Not Detected Flu B Result Not Detected Not Detected Comprehensive Metabolic Panel Result Value Ref Range Glucose 91 74 - 99 mg/dL Sodium 138 136 - 145 mmol/L Potassium 3.8 3.5 - 5.3 mmol/L Chloride 99 98 - 107 mmol/L Bicarbonate 31 21 - 32 mmol/L Anion Gap 12 10 - 20 mmol/L Urea Nitrogen 13 6 - 23 mg/dL Creatinine 0.79 0.50 - 1.05 mg/dL eGFR 81 >60 mL/min/1.73m*2 Calcium 9.5 8.6 - 10.3 mg/dL Albumin 3.6 3.4 - 5.0 g/dL Alkaline Phosphatase 67 33 - 136 U/L Total Protein 7.0 6.4 - 8.2 g/dL AST 9 9 - 39 U/L Bilirubin, Total 0.2 0.0 - 1.2 mg/dL ALT 9 7 - 45 U/L CBC and Auto Differential Result Value Ref Range WBC 14.7 (H) 4.4 - 11.3 x10*3/uL nRBC 0.0 0.0 - 0.0 /100 WBCs RBC 3.48 (L) 4.00 - 5.20 x10*6/uL Hemoglobin 9.4 (L) 12.0 - 16.0 g/dL Hematocrit 32.1 (L) 36.0 - 46.0 % MCV 92 80 - 100 fL MCH 27.0 26.0 - 34.0 pg MCHC 29.3 (L) 32.0 - 36.0 g/dL RDW 22.5 (H) 11.5 - 14.5 % Platelets 605 (H) 150 - 450 x10*3/uL Neutrophils % 76.8 40.0 - 80.0 % Immature Granulocytes %, Automated 0.4 0.0 - 0.9 % Lymphocytes % 12.7 13.0 - 44.0 % Monocytes % 8.9 2.0 - 10.0 % Eosinophils % 0.7 0.0 - 6.0 % Basophils % 0.5 0.0 - 2.0 % Neutrophils Absolute 11.32 (H) 1.20 - 7.70 x10*3/uL Immature Granulocytes Absolute, Automated 0.06 0.00 - 0.70 x10*3/uL Lymphocytes Absolute 1.87 1.20 - 4.80 x10*3/uL Monocytes Absolute 1.31 (H) 0.10 - 1.00 x10*3/uL Eosinophils Absolute 0.10 0.00 - 0.70 x10*3/uL Basophils Absolute 0.07 0.00 - 0.10 x10*3/uL Sars-CoV-2 PCR Result Value Ref Range Coronavirus 2019, PCR Not Detected Not Detected Morphology Result Value Ref Range RBC Morphology See Below Ovalocytes Few Rouleaux Present Giant Platelets Few MRSA Surveillance for Vancomycin De-escalation, PCR Specimen: Anterior Nares; Swab Result Value Ref Range MRSA PCR Not Detected Not Detected Blood Culture Specimen: Peripheral Venipuncture; Blood culture Result Value Ref Range Blood Culture Loaded on Instrument - Culture in progress Blood Culture Specimen: Peripheral Venipuncture; Blood culture Result Value Ref Range Blood Culture Loaded on Instrument - Culture in progress CBC Result Value Ref Range WBC 9.2 4.4 - 11.3 x10*3/uL nRBC 0.0 0.0 - 0.0 /100 WBCs RBC 3.17 (L) 4.00 - 5.20 x10*6/uL Hemoglobin 8.6 (L) 12.0 - 16.0 g/dL Hematocrit 28.7 (L) 36.0 - 46.0 % MCV 91 80 - 100 fL MCH 27.1 26.0 - 34.0 pg MCHC 30.0 (L) 32.0 - 36.0 g/dL RDW 21.9 (H) 11.5 - 14.5 % Platelets 515 (H) 150 - 450 x10*3/uL Basic metabolic panel Result Value Ref Range Glucose 83 74 - 99 mg/dL Sodium 139 136 - 145 mmol/L Potassium 4.4 3.5 - 5.3 mmol/L Chloride 102 98 - 107 mmol/L Bicarbonate 31 21 - 32 mmol/L Anion Gap 10 10 - 20 mmol/L Urea Nitrogen 10 6 - 23 mg/dL Creatinine 0.72 0.50 - 1.05 mg/dL eGFR >90 >60 mL/min/1.73m*2 Calcium 8.5 (L) 8.6 - 10.3 mg/dL B-Type Natriuretic Peptide Result Value Ref Range BNP 94 0 - 99 pg/mL XR chest 1 view Result Date: 06/04/2024 Interpreted By: Flaco Golden, STUDY: XR CHEST 1 VIEW; 06/04/2024 5:51 pm INDICATION: Signs/Symptoms:Hypoxemia. COMPARISON: None. ACCESSION NUMBER(S): [id number] ORDERING CLINICIAN: RANDAL SYKES FINDINGS: CARDIOMEDIASTINAL SILHOUETTE: Cardiomediastinal silhouette is normal in size and configuration. LUNGS: There is patchy airspace disease at the bases worse on the left. Bilateral small effusions. Lungs are hyperinflated. There is no edema ABDOMEN: No remarkable upper abdominal findings. BONES: Postsurgical changes the thoracolumbar junction 1. Patchy bibasilar airspace disease worse on the left along with bilateral effusions. Underlying pneumonia and atelectasis in the differential. Radiographic follow-up to resolution in 2-3 weeks is recommended. MACRO: None Signed by: Flaco Golden 06/04/2024 5:56 PM Dictation workstation: [id number] XR hand right 3+ views Result Date: 06/04/2024 Interpreted By: Flaco Golden, STUDY: XR HAND RIGHT 3+ VIEWS; ; 06/04/2024 5:51 pm INDICATION: Signs/Symptoms:contusion. COMPARISON: None. ACCESSION NUMBER(S): [id number] ORDERING CLINICIAN: RANDAL SYKES FINDINGS: Right hand, three views There is no fracture. There is no dislocation. There are no degenerative changes. There is no lytic or sclerotic lesion. There is no soft tissue abnormality seen. No acute abnormality in the right hand MACRO: None Signed by: Flaco Golden 06/04/2024 5:56 PM Dictation workstation: [id number] CT head W O contrast trauma protocol Result Date: 06/04/2024 Interpreted By: Hemanth Quezada, STUDY: CT HEAD W/O CONTRAST TRAUMA PROTOCOL; CT CERVICAL SPINE WO IV CONTRAST; 06/04/2024 4:04 pm INDICATION: Signs/Symptoms:Fall on thinners ACCESSION NUMBER(S): [id number]; [id number] ORDERING CLINICIAN: RANDAL SYKES TECHNIQUE: Axial noncontrast CT images of head with coronal and sagittal reconstructed images. Axial noncontrast CT images of the cervical spine with coronal and sagittal reconstructed images. FINDINGS: CT HEAD: BRAIN PARENCHYMA: No evidence of acute intraparenchymal hemorrhage or parenchymal evidence of acute large territory ischemic infarct. No mass-effect, midline shift or effacement of cerebral sulci. Leiva-white matter distinction is preserved. Global volume loss and chronic small vessel ischemic change VENTRICLES and EXTRA-AXIAL SPACES: No acute extra-axial or intraventricular hemorrhage. Ventricles and sulci are age-concordant. PARANASAL SINUSES/MASTOIDS: Mild ncli-iekzuey-czod-right mucosal thickening. CALVARIUM/ORBITS: No skull fracture. The orbits and globes are intact to the extent visualized. CT CERVICAL SPINE: Demineralization of the bones. PREVERTEBRAL SOFT TISSUES: Within normal limits. CRANIOCERVICAL JUNCTION: Intact. ALIGNMENT: No traumatic malalignment or traumatic facet widening. VERTEBRAE: No acute fracture. Vertebral body heights are maintained. Scattered mild multilevel degenerative disc disease. Vascular calcification No high-grade central canal or foraminal stenosis CT HEAD: No acute intracranial abnormality or calvarial fracture. Senescent changes CT CERVICAL SPINE: No acute fracture or traumatic malalignment of the cervical spine. Demineralization and mild degenerative changes. Signed by: Hemanth Quezada 06/04/2024 4:24 PM Dictation workstation: [id number] CT cervical spine wo IV contrast Result Date: 06/04/2024 Interpreted By: Hemanth Quezada, STUDY: CT HEAD W/O CONTRAST TRAUMA PROTOCOL; CT CERVICAL SPINE WO IV CONTRAST; 06/04/2024 4:04 pm INDICATION: Signs/Symptoms:Fall on thinners ACCESSION NUMBER(S): [id number]; [id number] ORDERING CLINICIAN: RANDAL SYKES TECHNIQUE: Axial noncontrast CT images of head with coronal and sagittal reconstructed images. Axial noncontrast CT images of the cervical spine with coronal and sagittal reconstructed images. FINDINGS: CT HEAD: BRAIN PARENCHYMA: No evidence of acute intraparenchymal hemorrhage or parenchymal evidence of acute large territory ischemic infarct. No mass-effect, midline shift or effacement of cerebral sulci. Leiva-white matter distinction is preserved. Global volume loss and chronic small vessel ischemic change VENTRICLES and EXTRA-AXIAL SPACES: No acute extra-axial or intraventricular hemorrhage. Ventricles and sulci are age-concordant. PARANASAL SINUSES/MASTOIDS: Mild rthv-vzdnrml-tojv-right mucosal thickening. CALVARIUM/ORBITS: No skull fracture. The orbits and globes are intact to the extent visualized. CT CERVICAL SPINE: Demineralization of the bones. PREVERTEBRAL SOFT TISSUES: Within normal limits. CRANIOCERVICAL JUNCTION: Intact. ALIGNMENT: No traumatic malalignment or traumatic facet widening. VERTEBRAE: No acute fracture. Vertebral body heights are maintained. Scattered mild multilevel degenerative disc disease. Vascular calcification No high-grade central canal or foraminal stenosis CT HEAD: No acute intracranial abnormality or calvarial fracture. Senescent changes CT CERVICAL SPINE: No acute fracture or traumatic malalignment of the cervical spine. Demineralization and mild degenerative changes. Signed by: Hemanth Quezada 06/04/2024 4:24 PM Dictation workstation: [id number] CT head wo IV contrast Result Date: 05/12/2024 * * *Final Report* * * DATE OF EXAM: May 12 2024 7:27AM [facility] 0504 - CT BRAIN WO IVCON / PROCEDURE REASON: Mental status change, unknown cause * * * * Physician Interpretation * * * * EXAMINATION: CT BRAIN WO IVCON CLINICAL HISTORY: Mental status changes TECHNIQUE: Serial axial images without IV contrast were obtained from the vertex to the foramen magnum. MQ: [id number]_3 CT Radiation dose: Integrated Dose-Length Product (DLP) for this visit = 706.22 mGy*cm CT Dose Reduction Employed: No dose reduction techniques were required COMPARISON: None. RESULT: Localizer images: Unremarkable. Post-operative change: None. Acute change: No evidence of an acute infarct or other acute parenchymal process. Hemorrhage: No evidence of acute intracranial hemorrhage. ECASS hemorrhagic transformation score: Not Applicable Mass Lesion / Mass Effect: There is no evidence of an intracranial mass or extraaxial fluid collection. No significant mass effect. Chronic change: None apparent. Parenchyma: There is no significant volume loss. The brain parenchyma is otherwise within normal limits for age. Ventricles: The ventricles are within normal limits of size and configuration for age. Paranasal sinuses and skull base: Air-fluid levels in sphenoid sinuses. The skull base and imaged soft tissues are unremarkable. IMPRESSION: No evidence of acute intracranial process. Air-fluid levels in sphenoid sinuses and findings which may be seen with Tailor Fitter: PSCBernabe Transcribe Date/Time: May 12 2024 7:45A Dictated by : DWIGHT CALLE MD This examination was interpreted and the report reviewed and electronically signed by: DWIGHT CALLE MD on May 12 2024 7:48AM EST Assessment/Plan Assessment & Plan Fall Pneumonia due to infectious organism Secondary fibromyalgia Acute on chronic hypoxic respiratory failure (Multi) COPD (chronic obstructive pulmonary disease) (Multi) Hypotension Hypothyroidism Normocytic anemia CAD (coronary artery disease) Depression Dementia #Acute on chronic hypoxic respiratory failure #Pneumonia, gram negative #COPD - Wears 3L O2 as needed/CPAP at bedtime; reports recent productive cough, poor appetite - VBG: pH 7.39/pCO2 52/pO2 23 - CXR: Patchy bibasilar airspace disease worse on the left along with bilateral effusions. Underlying pneumonia and atelectasis in the differential. Radiographic follow-up to resolution in 2-3 weeks is recommended. - Received Vancomycin, Levaquin and Meropenem in the ED - WBC 14.7 > 9.2 - BNP 94 - COVID, flu negative - MRSA nares negative - Procal, BCx pending - Sputum culture if able - Continue Levaquin (day 2) - Start prednisone 40 mg every day given history of COPD - Continue Breo- pharmacy substitute for home Advair - Continue Spiriva- home inhaler - DuoNebs TID - Mucinex BID - Tylenol PRN for fever - RT eval and treat protocol - Bronchial hygiene - Monitor SpO2 continuously - Wean O2 as tolerated; patient currently on 3L O2 continuously #Mechanical fall - Brought to ED after mechanical fall, no loss of consciousness - CT head/C-spine negative for acute traumatic findings - PT/OT evals ordered #Anemia, normocytic - H/H 8.6/28.7, MCV 91 - Monitor for active bleeding - Daily CBC #Hypothyroidism - continue levothyroxine 125 mcg every day #Hypotension - BP stable, 138/63 this morning - Continue midodrine 5 mg BID - Monitor BP #CAD - Continue clopidogrel 75 mg every day #Fibromyalgia - Continue baclofen 10 mg BID, duloxetine 60 mg every day #Depression #Dementia - Currently at [facility] - Continue buspirone 10 mg BID, donepezil 10 mg at bedtime, quetiapine 25 mg at bedtime, Ativan 0.5 mg BID PRN for anxiety, Haldol 5 mg IM TID PRN for agitation - Delirium precautions: Frequent reorientation, day/night normalization, shades open for sunlight, provide glasses/hearing aids as needed - TCC on for discharge planning DVT PPx: Lovenox GI PPx: Protonix Diet: Regular Code Status: Full Disposition: Patient requires inpatient management at this time. Elena Lopez PA-C Cosigned by Chris Christensen MD at 06/05/2024 8:36 PM EST Associated attestation - Chris Christensen MD - 06/05/2024 8:36 PM EST Attending Attestation: I was present with the OPERATIONS ASSISTANT-ERIS who participated in the documentation of this note. I have personally seen and re-examined the patient and performed the medical decision-making components (assessment and plan of care). I have reviewed the documentation and verified the findings in the note as written with additions or exceptions as stated in the body of this note. 69 year old female who was brought to the [place] ED er sustaining a mechanical fall at [email or web address]. Patient was brought in as a trauma alert however imaging was negative for any acute traumatic findings. Chest x ray showed patchy bibasilar airspace disease, L>>R. Patient does have history of COPD and wears 3 LPM of oxygen as needed at the baseline. She is also on CPAP at night time for RAUL. She also noticed a recent productive cough and nausea. In the ED her oxygen saturation dropped down to 77% and she required continuous 3 LPM of oxygen. VBG showed pH 7.39/pCO2 52/pO2 23. Flu, COVID negative. Labs were significant for WBC 14.7, H/H 9.4/32.1. Patient was given Meropenem, Vancomycin, and Toradol in the ED. She was admitted to med/surg for further care. Admitting diagnosis were Acute on chronic hypoxic respiratory failure- On 3 LPM of NC oxygen and increase as needed to keep saturation above 92% Pneumonia- Started on IV antibiotic in the ER, Continue on levaquin. COPD- Duo Neb, bronchial hygiene, treat the pneumonia, Continue breo and spirva. Mechanical fall which needed PT/ OT evaluation. Anemia, normocytic H/H 8.6/28.7, MCV 91 Chris Christensen MD Internal Medicine. [facility] Work Phone: 06-05-2024 History and physical note History Of Present Illness Codi Blank is a 69 y.o. female presenting with mechanical fall. Patient was brought to the [place] ED after sustaining a mechanical fall at [email or web address]. Patient was brought in as a trauma alert; imaging was negative for acute traumatic findings. CXR showed patchy bibasilar airspace disease, left worse than right. Patient has a history of COPD and wears 3L O2 as needed; she wears CPAP for sleep. She does report a recent productive cough with green/yellow sputum and some nausea. No chest pain, fevers, or chills reported. Patient required 3L O2 continuously in the ED for SpO2 77% on room air at rest. VBG showed pH 7.39/pCO2 52/pO2 23. Flu, COVID negative. Labs were significant for WBC 14.7, H/H 9.4/32.1. Patient was given Meropenem, Vancomycin, and Toradol in the ED. She was admitted to med/surg for further care. Past Medical History Past Medical History: Diagnosis Date Essential (primary) hypertension 01/10/2020 HTN (hypertension), benign Presence of coronary angioplasty implant and graft 02/21/2021 H/O heart artery stent Transient cerebral ischemic attack, unspecified 01/10/2020 TIA (transient ischemic attack) Surgical History Past Surgical History: Procedure Laterality Date OTHER SURGICAL HISTORY 02/21/2021 Lower extremity amputation below knee OTHER SURGICAL HISTORY 02/21/2021 Cholecystectomy OTHER SURGICAL HISTORY 02/21/2021 Sinus surgery OTHER SURGICAL HISTORY 02/21/2021 Carpal tunnel surgery OTHER SURGICAL HISTORY 02/21/2021 Tonsillectomy OTHER SURGICAL HISTORY 02/21/2021 Back surgery OTHER SURGICAL HISTORY 02/21/2021 Hysterectomy OTHER SURGICAL HISTORY 02/21/2021 Thyroidectomy OTHER SURGICAL HISTORY 02/21/2021 Knee surgery OTHER SURGICAL HISTORY 02/21/2021 Bunionectomy Social History She reports that she quit smoking about 13 months ago. Her smoking use included cigarettes. She started smoking about 41 years ago. She has a 10 pack-year smoking history. She has been exposed to tobacco smoke. She has never used smokeless tobacco. She reports that she does not currently use alcohol. She reports that she does not currently use drugs. Family History Family History Problem Relation Name Age of Onset Heart attack Father Allergies Adhesive, Adhesive tape-silicones, Cefaclor, Clarithromycin, Doxycycline, Penicillins, Sulfa (sulfonamide antibiotics), and Sulfamethoxazole Review of Systems Constitutional: Positive for appetite change. Negative for chills and fever. Respiratory: Positive for cough and shortness of breath. Cardiovascular: Negative for chest pain. Gastrointestinal: Positive for nausea. Negative for abdominal pain, diarrhea and vomiting. Genitourinary: Negative for difficulty urinating. All other systems reviewed and are negative. Physical Exam Constitutional: General: She is not in acute distress. Appearance: She is not toxic-appearing. HENT: Head: Normocephalic and atraumatic. Mouth/Throat: Mouth: Mucous membranes are moist. Eyes: Conjunctiva/sclera: Conjunctivae normal. Cardiovascular: Rate and Rhythm: Normal rate and regular rhythm. Pulmonary: Effort: No respiratory distress. Breath sounds: No wheezing. Comments: Diminished breath sounds, on 3L O2 via NC with SpO2 92% Abdominal: General: There is no distension. Palpations: Abdomen is soft. Tenderness: There is no abdominal tenderness. Musculoskeletal: Right lower leg: No edema. Left lower leg: No edema. Skin: General: Skin is warm and dry. Neurological: Mental Status: She is alert and oriented to person, place, and time. Psychiatric: Mood and Affect: Mood normal. Behavior: Behavior normal. Last Recorded Vitals Blood pressure 138/63, pulse 87, temperature 36.6 C (97.9 F), temperature source Temporal, resp. rate 18, height 1.448 m (4' 9), weight 50.2 kg (110 lb 10.7 oz), SpO2 96%, not currently . Relevant Results Scheduled medications baclofen, 10 mg, oral, BID busPIRone, 10 mg, oral, BID clopidogrel, 75 mg, oral, Daily donepezil, 10 mg, oral, Nightly donepezil, , , DULoxetine, 60 mg, oral, Daily enoxaparin, 40 mg, subcutaneous, q24h fluticasone, 2 spray, Each Nostril, Daily fluticasone furoate-vilanteroL, 1 puff, inhalation, Daily guaiFENesin, 600 mg, oral, BID ipratropium-albuteroL, 3 mL, nebulization, TID levoFLOXacin, 750 mg, intravenous, q48h levothyroxine, 125 mcg, oral, Daily midodrine, 5 mg, oral, BID pantoprazole, 40 mg, oral, Daily before breakfast QUEtiapine, , , QUEtiapine, 25 mg, oral, Nightly tiotropium, 2 puff, inhalation, Daily Continuous medications PRN medications PRN medications: acetaminophen, benzocaine-menthol, cyclobenzaprine, dextromethorphan-guaifenesin, donepezil, haloperidol lactate, ipratropium-albuteroL, LORazepam, ondansetron, oxygen, polyethylene glycol, QUEtiapine Results for orders placed or performed during the hospital encounter of 06/04/24 (from the past 24 hours) Blood Gas Venous Full Panel Result Value Ref Range POCT pH, Venous 7.39 7.33 - 7.43 pH POCT pCO2, Venous 52 (H) 41 - 51 mm Hg POCT pO2, Venous 23 (L) 35 - 45 mm Hg POCT SO2, Venous 26 (L) 45 - 75 % POCT Oxy Hemoglobin, Venous 25.7 (L) 45.0 - 75.0 % POCT Hematocrit Calculated, Venous 26.0 (L) 36.0 - 46.0 % POCT Sodium, Venous 139 136 - 145 mmol/L POCT Potassium, Venous 3.8 3.5 - 5.3 mmol/L POCT Chloride, Venous 104 98 - 107 mmol/L POCT Ionized Calicum, Venous 1.25 1.10 - 1.33 mmol/L POCT Glucose, Venous 112 (H) 74 - 99 mg/dL POCT Lactate, Venous 0.9 0.4 - 2.0 mmol/L POCT Base Excess, Venous 5.7 (H) -2.0 - 3.0 mmol/L POCT HCO3 Calculated, Venous 31.5 (H) 22.0 - 26.0 mmol/L POCT Hemoglobin, Venous 8.7 (L) 12.0 - 16.0 g/dL POCT Anion Gap, Venous 7.0 (L) 10.0 - 25.0 mmol/L Patient Temperature FiO2 32 % Influenza A, and B PCR Result Value Ref Range Flu A Result Not Detected Not Detected Flu B Result Not Detected Not Detected Comprehensive Metabolic Panel Result Value Ref Range Glucose 91 74 - 99 mg/dL Sodium 138 136 - 145 mmol/L Potassium 3.8 3.5 - 5.3 mmol/L Chloride 99 98 - 107 mmol/L Bicarbonate 31 21 - 32 mmol/L Anion Gap 12 10 - 20 mmol/L Urea Nitrogen 13 6 - 23 mg/dL Creatinine 0.79 0.50 - 1.05 mg/dL eGFR 81 >60 mL/min/1.73m*2 Calcium 9.5 8.6 - 10.3 mg/dL Albumin 3.6 3.4 - 5.0 g/dL Alkaline Phosphatase 67 33 - 136 U/L Total Protein 7.0 6.4 - 8.2 g/dL AST 9 9 - 39 U/L Bilirubin, Total 0.2 0.0 - 1.2 mg/dL ALT 9 7 - 45 U/L CBC and Auto Differential Result Value Ref Range WBC 14.7 (H) 4.4 - 11.3 x10*3/uL nRBC 0.0 0.0 - 0.0 /100 WBCs RBC 3.48 (L) 4.00 - 5.20 x10*6/uL Hemoglobin 9.4 (L) 12.0 - 16.0 g/dL Hematocrit 32.1 (L) 36.0 - 46.0 % MCV 92 80 - 100 fL MCH 27.0 26.0 - 34.0 pg MCHC 29.3 (L) 32.0 - 36.0 g/dL RDW 22.5 (H) 11.5 - 14.5 % Platelets 605 (H) 150 - 450 x10*3/uL Neutrophils % 76.8 40.0 - 80.0 % Immature Granulocytes %, Automated 0.4 0.0 - 0.9 % Lymphocytes % 12.7 13.0 - 44.0 % Monocytes % 8.9 2.0 - 10.0 % Eosinophils % 0.7 0.0 - 6.0 % Basophils % 0.5 0.0 - 2.0 % Neutrophils Absolute 11.32 (H) 1.20 - 7.70 x10*3/uL Immature Granulocytes Absolute, Automated 0.06 0.00 - 0.70 x10*3/uL Lymphocytes Absolute 1.87 1.20 - 4.80 x10*3/uL Monocytes Absolute 1.31 (H) 0.10 - 1.00 x10*3/uL Eosinophils Absolute 0.10 0.00 - 0.70 x10*3/uL Basophils Absolute 0.07 0.00 - 0.10 x10*3/uL Sars-CoV-2 PCR Result Value Ref Range Coronavirus 2019, PCR Not Detected Not Detected Morphology Result Value Ref Range RBC Morphology See Below Ovalocytes Few Rouleaux Present Giant Platelets Few MRSA Surveillance for Vancomycin De-escalation, PCR Specimen: Anterior Nares; Swab Result Value Ref Range MRSA PCR Not Detected Not Detected Blood Culture Specimen: Peripheral Venipuncture; Blood culture Result Value Ref Range Blood Culture Loaded on Instrument - Culture in progress Blood Culture Specimen: Peripheral Venipuncture; Blood culture Result Value Ref Range Blood Culture Loaded on Instrument - Culture in progress CBC Result Value Ref Range WBC 9.2 4.4 - 11.3 x10*3/uL nRBC 0.0 0.0 - 0.0 /100 WBCs RBC 3.17 (L) 4.00 - 5.20 x10*6/uL Hemoglobin 8.6 (L) 12.0 - 16.0 g/dL Hematocrit 28.7 (L) 36.0 - 46.0 % MCV 91 80 - 100 fL MCH 27.1 26.0 - 34.0 pg MCHC 30.0 (L) 32.0 - 36.0 g/dL RDW 21.9 (H) 11.5 - 14.5 % Platelets 515 (H) 150 - 450 x10*3/uL Basic metabolic panel Result Value Ref Range Glucose 83 74 - 99 mg/dL Sodium 139 136 - 145 mmol/L Potassium 4.4 3.5 - 5.3 mmol/L Chloride 102 98 - 107 mmol/L Bicarbonate 31 21 - 32 mmol/L Anion Gap 10 10 - 20 mmol/L Urea Nitrogen 10 6 - 23 mg/dL Creatinine 0.72 0.50 - 1.05 mg/dL eGFR >90 >60 mL/min/1.73m*2 Calcium 8.5 (L) 8.6 - 10.3 mg/dL B-Type Natriuretic Peptide Result Value Ref Range BNP 94 0 - 99 pg/mL XR chest 1 view Result Date: 06/04/2024 Interpreted By: Flaco Golden, STUDY: XR CHEST 1 VIEW; 06/04/2024 5:51 pm INDICATION: Signs/Symptoms:Hypoxemia. COMPARISON: None. ACCESSION NUMBER(S): [id number] ORDERING CLINICIAN: RANDAL SYKES FINDINGS: CARDIOMEDIASTINAL SILHOUETTE: Cardiomediastinal silhouette is normal in size and configuration. LUNGS: There is patchy airspace disease at the bases worse on the left. Bilateral small effusions. Lungs are hyperinflated. There is no edema ABDOMEN: No remarkable upper abdominal findings. BONES: Postsurgical changes the thoracolumbar junction 1. Patchy bibasilar airspace disease worse on the left along with bilateral effusions. Underlying pneumonia and atelectasis in the differential. Radiographic follow-up to resolution in 2-3 weeks is recommended. MACRO: None Signed by: Flaco Golden 06/04/2024 5:56 PM Dictation workstation: [id number] XR hand right 3+ views Result Date: 06/04/2024 Interpreted By: Flaco Golden, STUDY: XR HAND RIGHT 3+ VIEWS; ; 06/04/2024 5:51 pm INDICATION: Signs/Symptoms:contusion. COMPARISON: None. ACCESSION NUMBER(S): [id number] ORDERING CLINICIAN: RANDAL SYKES FINDINGS: Right hand, three views There is no fracture. There is no dislocation. There are no degenerative changes. There is no lytic or sclerotic lesion. There is no soft tissue abnormality seen. No acute abnormality in the right hand MACRO: None Signed by: Flaco Golden 06/04/2024 5:56 PM Dictation workstation: [id number] CT head W O contrast trauma protocol Result Date: 06/04/2024 Interpreted By: Hemanth Quezada, STUDY: CT HEAD W/O CONTRAST TRAUMA PROTOCOL; CT CERVICAL SPINE WO IV CONTRAST; 06/04/2024 4:04 pm INDICATION: Signs/Symptoms:Fall on thinners ACCESSION NUMBER(S): [id number]; [id number] ORDERING CLINICIAN: RANDAL SYKES TECHNIQUE: Axial noncontrast CT images of head with coronal and sagittal reconstructed images. Axial noncontrast CT images of the cervical spine with coronal and sagittal reconstructed images. FINDINGS: CT HEAD: BRAIN PARENCHYMA: No evidence of acute intraparenchymal hemorrhage or parenchymal evidence of acute large territory ischemic infarct. No mass-effect, midline shift or effacement of cerebral sulci. Leiva-white matter distinction is preserved. Global volume loss and chronic small vessel ischemic change VENTRICLES and EXTRA-AXIAL SPACES: No acute extra-axial or intraventricular hemorrhage. Ventricles and sulci are age-concordant. PARANASAL SINUSES/MASTOIDS: Mild oiba-kbczyey-ysek-right mucosal thickening. CALVARIUM/ORBITS: No skull fracture. The orbits and globes are intact to the extent visualized. CT CERVICAL SPINE: Demineralization of the bones. PREVERTEBRAL SOFT TISSUES: Within normal limits. CRANIOCERVICAL JUNCTION: Intact. ALIGNMENT: No traumatic malalignment or traumatic facet widening. VERTEBRAE: No acute fracture. Vertebral body heights are maintained. Scattered mild multilevel degenerative disc disease. Vascular calcification No high-grade central canal or foraminal stenosis CT HEAD: No acute intracranial abnormality or calvarial fracture. Senescent changes CT CERVICAL SPINE: No acute fracture or traumatic malalignment of the cervical spine. Demineralization and mild degenerative changes. Signed by: Hemanth Quezada 06/04/2024 4:24 PM Dictation workstation: [id number] CT cervical spine wo IV contrast Result Date: 06/04/2024 Interpreted By: Hemanth Quezada, STUDY: CT HEAD W/O CONTRAST TRAUMA PROTOCOL; CT CERVICAL SPINE WO IV CONTRAST; 06/04/2024 4:04 pm INDICATION: Signs/Symptoms:Fall on thinners ACCESSION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 05/03/23 09:26 Urine, Catheterized Urine Culture - Preliminary Alpha hemolytic organism Alpha hemolytic organism#2 05/03/23 10:40 Blood Culture (Wb) - Anticubital Left Blood Culture - Preliminary Coag Negative Staph 05/05/23 00:05 Stool Stool Occult Blood (ELFEGO) - Final Occult Blood Positive Assessment & Plan Assessment/Plan (1) Acute on chronic anemia: (2) Influenza A: PLAN: Plan 67-year-old female with shortness of breath, nausea/vomiting, diarrhea, fevers and worsening weakness. She was identified as having acute influenza A and alsohad a significant drop in hemoglobin She has a history of acute on chronic anemia that appears to be normocytic in nature. However her hemoglobin 8.6 on admit, down trended to 5.9 on 05/04. She also had reactive thrombocytosis with a platelet count over 750,000. CT abdomen pelvis with IV contrast showed thickening of gastric antrum and pylorus of unclear etiology, endoscopy recommended, diverticulosis without evidence of acute diverticulitis, otherwise unremarkable. Iron studies 05/04 unremarkable. She was transfused 2 units of packed red blood cells. -She should undergo an upper endoscopy to evaluate upper GI tract. She was explained alternatives, risk, benefits including not withstanding bleeding, infection, sepsis, perforation, need for return to . She will have an ASAof 3. Charges/Coding Visit Charges Inpatient E&M: 33941 Init Hosp L3 05/05/23 4410 <Electronically signed by Sree Diggs DO> Cosigner Signature (if applicable): CC: Dr. Cherelle Almendarez DO; Dr. Errol Michel DO; Sree Friend, DO~ Signed [facility] Work Phone: 1(811) 429-622401-09-2024 Progress note Author David Blackwell [facility] May 05, 2023 3:54pm Note Date/Time May 05, 2023 3: 44pm [facility] Medical Records Department [address] [place] [address] Progress Note - Hospitalist 05/05/23 1539 MR#: [id number] Acct: [id number] Name: CODI BLANK Rep #:[id number] : 1955 67 From: David gardiner DO PCP: Dr. Errol Michel DO Status:ADM IN Location: [facility] BH779-4 Reason for Visit Reason for Visit: Diagnoses Sepsis, unspecified organism (05/03/23) Candidal stomatitis (05/03/23) Anemia, unspecified (05/03/23) Elevated white blood cell count, unspecified (05/03/23) Thrombocytosis, unspecified (05/03/23) Acidosis, unspecified (05/03/23) Influenza due to other identified influenza virus with other respiratory manifestations (05/03/23) Pneumonia, unspecified organism (05/03/23) Hypoxemia (05/03/23) Nausea with vomiting, unspecified (05/03/23) Other specified abnormal findings of blood chemistry (05/03/23) Subjective Subjective Patient seen at bedside this morning. Sitting up in bed, no acute distress. Patient appeared less pale and more awake this morning. Her main concern was that she felt cold, stated the blankets were thin and not enough to keep her warm. She otherwise denied any acute pain or discomfort. Reported a mild dry cough that was improving. Denied any diarrhea overnight. Denied any episodes of nausea or vomiting. No other acute concerns at this time. Objective Data Objective Data Vital Signs: Vital Signs Temp Pulse Resp BP Pulse Ox O2 Del Method O2 Flow Rate 98.4 F 63 18 133/60 H 93 Nasal Cannula 4 05/05/23 13:59 05/05/23 13:59 05/05/23 13:59 05/05/23 13:59 05/05/23 13:59 05/05/23 13:59 05/05/23 13:59 FiO2 4 05/04/23 23:24 Oxygen Flow Rate (L/min) 4 Oxygen Delivery Method Nasal Cannula Weight: 60.781 kg Body Mass Index (BMI) 27.0 Intake & Output: Intake and Output for Last 24 Hours 05/03/23 05/04/23 05/05/23 23:59 23:59 23:59 Intake Total 5635 / 5635 1240 / 1240 310 / 310 Output Total 1150 / 1150 1200 / 1200 Balance 5635 / 5035 90 / 90 -890 / -890 Medical Nutrition Assessment Dietitian: Malnutrition Criteria Met Start: 05/04/23 14:24 Freq: Status: Active Protocol: Document 05/04/23 14:28 SLA (Rec: 05/04/23 14:28 SLA Desktop) Nutrition Malnutrition Evidence of Malnutrition Exists Yes Malnutrition (severe): Acute Illness/Injury Evidenced By Suboptimal Energy Intake ( Severe),Weight Loss (Severe) Clinical Problem Acute Disease or Injury Related Malnutrition Etiology related to gi dysfunction and inability to consume adequate energy Signs/Symptoms as evidenced by 4.3% unintended wt loss and po intake <50% of est nutritional needs x < 1 wk Status Active Problem Recommendation Dietitian Recommendations/Changes Will liberalize diet to regular d/t signs and symptoms of malnutrition Will continue 4 oz ensure plus high protein 4x/day w/ medpass for increased nutrition if consumed. Lab / Micro Data 05/05/23 05:45 05/05/23 05:45 Labs: Laboratory Results - last 24 hr 05/04/23 08:30: Blood Type A NEGATIVE, Antibody Screen NEGATIVE, Crossmatch See Detail 05/04/23 22:26: Vancomycin Trough 19.0 H 05/05/23 00:27: WBC 22.4 H, RBC 3.52 L, Hgb 9.4 L, Hct 29.0 L, MCV 82.4, MCH 26.7 L, MCHC 32.4, RDW Std Deviation 50.0 H, RDW Coeff of Genaro 16.5 H, Plt Count 431, MPV 9.0 05/05/23 05:45: WBC 23.4 H, RBC 3.36 L, Hgb 9.2 L, Hct 27.7 L, MCV 82.4, MCH 27.4, MCHC 33.2, RDW Std Deviation 50.3 H, RDW Coeff of Genaro 16.8 H, Plt Count 463 H, MPV 9.3, Sodium 144, Potassium 3.6, Chloride 116 H, Carbon Dioxide 21.0, Anion Gap 7, BUN 14, Creatinine 0.69, Estim Creat Clear Calc 52.38, Est GFR (MDRD) Af Amer 108, Est GFR (MDRD) Non-Af 89, BUN/Creatinine Ratio 20.2 H, Glucose 134 H, Calcium 7.6 L, TSH 2.15 Micro: Microbiology 05/03/23 17:42 Sputum, Expectorated/Coughed Gram Stain - Final 05/03/23 17:42 Sputum, Expectorated/Coughed Respiratory Culture - Final Mixed normal respiratory gera. No Streptococcus pneumoniae, beta-hemolytic Streptococcus or Staphylococcus aureus isolated. 05/03/23 09:26 Urine, Catheterized Urine Culture - Preliminary Alpha hemolytic organism Alpha hemolytic organism#2 05/03/23 10:40 Blood Culture (Wb) - Anticubital Left Blood Culture - Preliminary Coag Negative Staph 05/05/23 00:05 Stool Stool Occult Blood (ELFEGO) - Final Occult Blood Positive 05/03/23 15:59 Mucosa - Nose Respiratory Panel (PCR) - Final 05/03/23 09:26 Urine, Random Legionella Antigen - Final 05/03/23 09:26 Urine, Random Streptococcus pneumoniae Antigen (M - Final 05/03/23 08:38 Mucosa - Nose SARS-CoV-2, Influenza & RSV (PCR) - Final Influenzae A Physical Exam Const alert, no apparent distress and average body habitus Constitutional Narrative: Elderly female, chronically ill-appearing, less pale after blood transfusion, sitting up comfortably in bed, short appropriate responses to questions, no acute distress. General Appearance: cooperative and comfortable HEENT normocephalic, head/scalp atraumatic, hearing grossly normal bilaterally and nasal mucous membranes and turbinates normal Eyes PERRL, EOMs intact bilaterally and conjunctivae normal Neck full ROM, no lymphadenopathy and supple Lymph Lymphatic: no lymphadenopathy noted Chest inspection of chest normal Resp normal respiratory effort and no use of accessory muscles Resp Narrative: Mildly decreased breath sounds bilaterally, no wheezing or crackles noted. Cardio no murmurs and peripheral pulses 2+ throughout Cardio Narrative: Tachycardic, regular rhythm. GI normal to inspection, nondistended, normoactive bowel sounds, soft to palpation,non-tender and non-distended Back/Spine normal ROM Extremity normal to inspection, full ROM and no pedal edema Skin no rashes or lesions noted Neuro no focal motor deficits and no sensory deficits noted Speech: speech normal Psych mental status grossly normal Assessment & Plan Assessment/Plan (1) Acute on chronic anemia: (2) Influenza A: PLAN: Plan Patient is a 67-year-old female who presented to [facility] ED on 05/03/2023 with several concerns including shortness of breath, nausea/vomiting, diarrhea, fevers and worsening weakness. 1. Acute on chronic normocytic anemia Hemoglobin 8.6 on admit, down trended to 5.9 on 05/04. No dark or bright red blood in stools noted. Likely some component of hemodilution due to fluid resuscitation on admit as noted below. However, also with concern for new onsetGI bleed. CT abdomen pelvis with IV contrast showed thickening of gastric antrum and pylorus of unclear etiology, endoscopy recommended, diverticulosis without evidence of acute diverticulitis, otherwise unremarkable. Iron studies 05/04 unremarkable. ? S/p 2 units packed red blood cells on 05/04, repeat hemoglobin 9.2. Gastroenterology consulted, planning for EGD on 05/05. Continue IV PPI twice daily for now, will likely de-escalate to p.o. PPI twice daily tomorrow. Monitor daily CBC. 2. Sepsis secondary to influenza A with concern for superimposed bacterial pneumonia, acute hypoxia on chronic hypoxic respiratory failure Met sepsis criteria on admit with tachycardia, elevated respiratory rate, markedly elevated WBC count, lactic acidosis, new hypoxia, suspected source. Chest x-ray on admit with no acute cardiopulmonary process. Influenza A positive. Given fluid bolus at 30 cc/kg on admit with improvement in blood pressure. Urine antigens negative. Respiratory PCR panel negative. Blood cultures, sputum culture, urine culture negative. ? Discontinue vancomycin and cefepime on 05/05. De-escalated to p.o. steroids on 05/05 with plan for 5-day course. Continue pulmonary toilet, incentive spirometry, as needed medications for supportive care. Holding home Plaquenil. Required up to 6 L nasal cannula on admission, now on 4 L nasal cannula at rest on 05/05 (on intermittent 2 L at baseline). Will likely need O2 evaluation prior to discharge. 3. Lactic acidosis, resolved ? Suspect related to above and underlying hypoxia, improved with fluid boluses. 4. Leukocytosis/thrombocytosis, improving ? Suspect reactive from infection. Patient has also been on steroids. Monitor daily CBC. 5. DANYEL, resolved ? Creatinine 1.35 on admit, improved to 0.68 (baseline) with IV fluids. 6. Oral thrush ? Nystatin suspension swish for 7 days. 7. Nausea/vomiting/diarrhea, resolved ? Unclear etiology. Has had no episodes of vomiting or diarrhea since admission. CT abdomen pelvis as above. Enteric panel and C. difficile ordered,unable to be collected. Continue IV PPI twice daily as above for now. 8. Debility ? Lives at home with but appears to be quite debilitated at baseline. PT/OT/case management following. has appropriate set up for her at home, denies any needs on discharge, planning for home on discharge. Chronic medical conditions: ? History of RAUL: Continue home CPAP. ? Hypothyroidism: Continue home Synthroid and liothyronine. ? Chronic hypoxic respiratory failure secondary to COPD: Follows with pulmonology, sees Dr. Page. Supposed to be on 2 L [id number], however she is only wearing this as needed. Weaning supplemental oxygen as able as noted above. Recommend outpatient follow-up after discharge. ? CAD/hypertension/hyperlipidemia: Continue home statin, Plavix, metoprolol. Holding home Lasix for now. ? Anxiety/depression/fibromyalgia: Continue home Topamax, Cymbalta, BuSpar, lorazepam, hydroxyzine. DVT prophylaxis: SCDs CODE STATUS: DNR CCA, okay to intubate Expected disposition: TBD Total clinical time spent by myself addressing the patient's medical issues, reviewing all the data, and collaborating with patient's care team: 35 minutes. Charges/Coding Visit Charges Inpatient E&M: 31057 Subs Hosp L2 05/05/23 8532 <Electronically signed by David Blackwell DO> Cosigner Signature (if applicable): CC: ~ Signed [facility] Work Phone: 1(515) 953-480101-09-2024 Procedure [facility] 05-05-2023 Procedure [facility]01-09-2024 Consult note Author Néstor Calle [facility] [place] 9th, 2024 12:10am Note Date/Time May 05, 2023 12 :10am [facility] Medical Records Department [address] [place] [address] Pharmacokinetic/Renal -Consult 05/05/23 0006 MR#: [id number] Acct: [id number] Name: CODI BLANK Rep #:[id number] : 1955 67 From: Néstor Calle PCP: Dr. Errol Michel, DO Status:ADM IN Location: [address] Consult Antibiotic Management Pharmacy has been consulted to manage selected antibiotic: Vancomycin Type of Intervention Type of Consult: Follow-up Suspected Infection Suspected Infection: Pneumonia Labs Labs: Sodium 143 mmol/L (136-145) 05/04/23 05:47 Potassium 3.7 mmol/L (3.5-5.1) 05/04/23 05:47 Chloride 117 mmol/L (98-107) H 05/04/23 05:47 Carbon Dioxide 19.0 mmol/L (21.0-32.0) L 05/04/23 05:47 Anion Gap 7 (5-15) 05/04/23 05:47 BUN 21 mg/dL (7-18) H 05/04/23 05:47 Creatinine 0.68 mg/dL (0.55-1.02) 05/04/23 05:47 Est GFR (MDRD) Af Amer 110 mL/min (>60) 05/04/23 05:47 Est GFR (MDRD) Non-Af 91 mL/min (>60) 05/04/23 05:47 BUN/Creatinine Ratio 30.7 RATIO (10-20) H 05/04/23 05:47 Glucose 140 mg/dL (74-106) H 05/04/23 05:47 Vancomycin Trough 19.0 ug/mL (5.0-15.0) H 05/04/23 22:26 Microbiology Microbiology: Microbiology 05/03/23 17:42 Sputum, Expectorated/Coughed Gram Stain - Final 05/03/23 10:40 Blood Culture (Wb) - Anticubital Left Blood Culture - Preliminary 05/03/23 15:59 Mucosa - Nose Respiratory Panel (PCR) - Final 05/03/23 09:26 Urine, Random Legionella Antigen - Final 05/03/23 09:26 Urine, Random Streptococcus pneumoniae Antigen (M - Final 05/03/23 08:38 Mucosa - Nose SARS-CoV-2, Influenza & RSV (PCR) - Final Influenzae A Dosing Weight Weight used for dosin.8 kg Estimated Creatinine Clearance Estimated Creatinine Clearance: 52 Goal Trough Goal Trough: 15-20 mcg/mL Pharmacy Plan for Drug Dosing Pharmacy Plan for Drug Dosing: Vancomycin trough draw was drawn, due to a delayed previous dose, just 9 hours post-dose. The resultant level was 19.0, on the higher side of the target range of 15-20, so will continue dosing at 500mg q12h. Another trough level will be drawn in two days. Pharmacy Service will continue to monitor and adjust dosing as required. Follow-Up Labs Follow-Up Labs: Trough: Vancomycin Date/Time Labs Ordered Labs to be done on [date and time ordered]: 05/06/23 @2230 05/05/23 0010 <Electronically signed by Néstor caraballo> Date _ Néstor Corona Signature (if applicable): Date CC: ~ Signed [facility] Work Phone: 1(575) 382-676201-08-2024 Progress note Author David Blackwell [facility] May 04, 2023 4:23pm Note Date/Time May 04, 2023 4: 22pm [facility] Medical Records Department [address] [place] [address] Progress Note - Hospitalist 05/04/23 1605 MR#: [id number] Acct: [id number] Name: CODI BLANK Rep #:[id number] : 1955 67 From: David gardiner DO PCP: Dr. Errol Michel DO Status:ADM IN Location: [place] [address]1 Reason for Visit Reason for Visit: Diagnoses Sepsis, unspecified organism (05/03/23) Candidal stomatitis (05/03/23) Elevated white blood cell count, unspecified (05/03/23) Thrombocytosis, unspecified (05/03/23) Acidosis, unspecified (05/03/23) Influenza due to other identified influenza virus with other respiratory manifestations (05/03/23) Pneumonia, unspecified organism (05/03/23) Hypoxemia (05/03/23) Nausea with vomiting, unspecified (05/03/23) Other specified abnormal findings of blood chemistry (05/03/23) Subjective Subjective Patient seen at bedside this morning. Patient was sitting up in bed, making appropriate eye contact, answering questions with short appropriate responses. She reported feeling tired but otherwise denied any pain or discomfort. Denied any dark or bloody bowel movements overnight. She reported significant diarrheaprior to admission, but has not had any episodes of diarrhea since being admitted. Denies any other acute concerns at this time. Objective Data Objective Data Vital Signs: Vital Signs Temp Pulse Resp BP Pulse Ox O2 Del Method O2 Flow Rate 97.7 F L 105 H 20 H 104/70 96 Nasal Cannula 4 05/04/23 15:50 05/04/23 15:50 05/04/23 15:50 05/04/23 15:50 05/04/23 15:50 05/04/23 15:50 05/04/23 15:50 Oxygen Flow Rate (L/min) 4 Oxygen Delivery Method Nasal Cannula Weight: 60.781 kg Body Mass Index (BMI) 27.0 Intake & Output: Intake and Output for Last 24 Hours 05/02/23 05/03/23 05/04/23 23:59 23:59 23:59 Intake Total 5635 / 5635 300 / 300 Output Total 950 / 950 Balance 5635 / 5035 -650 / -650 Medical Nutrition Assessment Dietitian: Malnutrition Criteria Met Start: 05/04/23 14:24 Freq: Status: Active Protocol: Document 05/04/23 14:28 HARRISON (Rec: 05/04/23 14:28 HARRISON Desktop) Nutrition Malnutrition Evidence of Malnutrition Exists Yes Malnutrition (severe): Acute Illness/Injury Evidenced By Suboptimal Energy Intake ( Severe),Weight Loss (Severe) Clinical Problem Acute Disease or Injury Related Malnutrition Etiology related to gi dysfunction and inability to consume adequate energy Signs/Symptoms as evidenced by 4.3% unintended wt loss and po intake <50% of est nutritional needs x < 1 wk Status Active Problem Recommendation Dietitian Recommendations/Changes Will liberalize diet to regular d/t signs and symptoms of malnutrition Will continue 4 oz ensure plus high protein 4x/day w/ medpass for increased nutrition if consumed. Lab / Micro Data 05/04/23 05:47 05/04/23 05:47 Labs: Laboratory Results - last 24 hr 05/03/23 08:38: Diff Path Review Reviewed 05/03/23 16:50: MRSA (PCR) Negative 05/04/23 05:47: WBC 23.8 H, RBC 2.31 L, Hgb 5.9 L*, Hct 18.8 L, MCV 81.4, MCH 25.5 L, MCHC 31.4 L, RDW Std Deviation 55.8 H, RDW Coeff of Genaro 18.5 H, Plt Count , MPV 9.6, Immature Gran % (Auto) 3.000 H, Neut % (Auto) 91.0 H, Lymph % (Auto) 4.0 L, Imperial % (Auto) 1.8, Eos % (Auto) 0.0, Baso % (Auto) 0.2, Absolute Neuts (auto) 21.7 H, Absolute Lymphs (auto) 0.96, Nucleated RBC % 0, Diff Path Review Reviewed, Platelet Estimate MKD INC, Hypochromasia 3+, Anisocytosis 2+, Sodium 143, Potassium 3.7, Chloride 117 H, Carbon Dioxide 19.0 L, Anion Gap 7, BUN 21 H, Creatinine 0.68, Estim Creat Clear Calc 52.38, Est GFR (MDRD) Af Amer 110, Est GFR (MDRD) Non-Af 91, BUN/Creatinine Ratio 30.7 H, Glucose 140 H, Calcium 7.3 L, Phosphorus 1.5 L, Magnesium 1.9, Iron 67, TIBC 281, Iron Saturation 23.8, Ferritin 220, Total Bilirubin 0.30, AST 17, ALT 10 L, Alkaline Phosphatase 62, Total Protein 5.7 L, Albumin 2.0 L, Globulin 3.7, Albumin/Globulin Ratio 0.5 L 05/04/23 08:30: Blood Type A NEGATIVE, Antibody Screen NEGATIVE, Crossmatch See Detail Micro: Microbiology 05/03/23 17:42 Sputum, Expectorated/Coughed Gram Stain - Final 05/03/23 10:40 Blood Culture (Wb) - Anticubital Left Blood Culture - Preliminary 05/03/23 15:59 Mucosa - Nose Respiratory Panel (PCR) - Final 05/03/23 09:26 Urine, Random Legionella Antigen - Final 05/03/23 09:26 Urine, Random Streptococcus pneumoniae Antigen (M - Final 05/03/23 08:38 Mucosa - Nose SARS-CoV-2, Influenza & RSV (PCR) - Final Influenzae A Radiography Diagnostic Testing: Radiology Impression Abdomen/Pelvis CT 05/04/23 08:18 IMPRESSION: 1. Thickening of the gastric antrum and pylorus difficult to accurately evaluate on this exam. Correlation with endoscopy is recommended. 2. Diverticulosis without evidence of acute diverticulitis. 3. Otherwise no focal acute inflammatory process. Electronically Signed: Agustín Norman MD at 9:57 EST , Physical Exam Const alert, no apparent distress and average body habitus Constitutional Narrative: Elderly female, chronically ill-appearing, appears pale but sitting up comfortably in bed, making appropriate eye contact and answers questions with short appropriate answers, no acute distress. General Appearance: cooperative and comfortable HEENT normocephalic, head/scalp atraumatic, hearing grossly normal bilaterally and nasal mucous membranes and turbinates normal Eyes PERRL, EOMs intact bilaterally and conjunctivae normal Neck full ROM, no lymphadenopathy and supple Lymph Lymphatic: no lymphadenopathy noted Chest inspection of chest normal Resp normal respiratory effort and no use of accessory muscles Resp Narrative: Mildly decreased breath sounds bilaterally, no wheezing or crackles noted. Cardio no murmurs and peripheral pulses 2+ throughout Cardio Narrative: Tachycardic, regular rhythm. GI normal to inspection, nondistended, normoactive bowel sounds, soft to palpation,non-tender and non-distended Back/Spine normal ROM Extremity normal to inspection, full ROM and no pedal edema Skin no rashes or lesions noted Neuro no focal motor deficits and no sensory deficits noted Speech: speech normal Psych mental status grossly normal Mood & Affect: anxious Assessment & Plan Assessment/Plan (1) Acute on chronic anemia: (2) Influenza A: PLAN: Plan Patient is a 67-year-old female who presented to [facility] ED on 05/03/2023 with several concerns including shortness of breath, nausea/vomiting, diarrhea, fevers and worsening weakness. 1. Acute on chronic normocytic anemia Hemoglobin 8.6 on admit, down trended to 5.9 on 05/04. No dark or bright red blood in stools noted. Likely some component of hemodilution due to fluid resuscitation on admit as noted below. However, also with concern for new onsetGI bleed. CT abdomen pelvis with IV contrast showed thickening of gastric antrum and pylorus of unclear etiology, endoscopy recommended, diverticulosis without evidence of acute diverticulitis, otherwise unremarkable. Iron studies 05/04 unremarkable. ? S/p 2 units packed red blood cells on 05/04, repeat hemoglobin pending. Gastroenterology consulted. N.p.o. at midnight for likely EGD. Will start IV PPI twice daily. 2. Sepsis secondary to influenza A with concern for superimposed bacterial pneumonia Met sepsis criteria on admit with tachycardia, elevated respiratory rate, markedly elevated WBC count, lactic acidosis, new hypoxia, suspected source. Chest x-ray on admit with no acute cardiopulmonary process. Influenza A positive. Given fluid bolus at 30 cc/kg on admit with improvement in blood pressure. Urine antigens negative. Respiratory PCR panel negative. ? Continue vancomycin and cefepime for now. Blood cultures, sputum culture, urine culture pending. Continue IV steroids for now, likely de-escalate to p.o.steroids tomorrow. Pulmonary toilet, incentive spirometry. Supportive care with as needed medications. Holding home Plaquenil. 3. Lactic acidosis, resolved ? Suspect related to above and underlying hypoxia, improved with fluid boluses. 4. Leukocytosis/thrombocytosis ? Suspect reactive from infection. Patient has also been on steroids. Monitor daily CBC. 5. DANYEL, resolved ? Creatinine 1.35 on admit, improved to 0.68 (baseline) with IV fluids. 6. Oral thrush ? Nystatin suspension swish for 7 days. 7. Nausea/vomiting/diarrhea, improving ? Unclear etiology. Has had no episodes of vomiting or diarrhea since admission. CT abdomen pelvis as above. Enteric panel and C. difficile ordered,unable to be collected. Continue IV PPI twice daily as above for now. 8. Debility ? Lives at home with but appears to be quite debilitated at baseline. PT/OT/case management consulted. Chronic medical conditions: ? History of RAUL: Continue home CPAP. ? Hypothyroidism: Continue home Synthroid and liothyronine. ? Chronic hypoxic respiratory failure secondary to COPD: Follows with pulmonology, sees Dr. Page. Supposed to be on 2 L [id number], however she is only wearing this as needed. Weaning supplemental oxygen as able as noted above. Recommend outpatient follow-up after discharge. ? CAD/hypertension/hyperlipidemia: Continue home statin, Plavix, metoprolol. Holding home Lasix for now. ? Anxiety/depression/fibromyalgia: Continue home Topamax, Cymbalta, BuSpar, lorazepam, hydroxyzine. DVT prophylaxis: SCDs CODE STATUS: DNR CCA, okay to intubate Expected disposition: TBD Total clinical time spent by myself addressing the patient's medical issues, reviewing all the data, and collaborating with patient's care team: 35 minutes. Charges/Coding Visit Charges In[facility] E&M: 73366 [facility] 05/04/233 <Electronically signed by David Blackwell DO> Cosigner Signature (if applicable): CC: ~ Signed [facility] Work Phone: 1(731) 154-223801-08-2024 Procedure [facility] 05-03-2023 Consult note Author Valery Self [facility] May 03, 2023 4:23pm Note Date/Time May 03, 2023 4: 23pm [facility] Medical Records Department [address] [place] [address] Pharmacokinetic/Renal -Consult 05/03/23 1622 MR#: [id number] Acct: [id number] Name: CODI BLANK Rep #:[id number] : 1955 67 From: Valery Self PCP: Dr. Errol Michel, DO Status:ADM IN Y Location: [place] [address]-1 Consult Antibiotic Management Pharmacy has been consulted to manage selected antibiotic: Vancomycin Suspected Infection Suspected Infection: Pneumonia Labs Labs: Sodium 138 mmol/L (136-145) 05/03/23 08:38 Potassium 4.4 mmol/L (3.5-5.1) 05/03/23 08:38 Chloride 104 mmol/L (98-107) 05/03/23 08:38 Carbon Dioxide 23.0 mmol/L (21.0-32.0) 05/03/23 08:38 Anion Gap 11 (5-15) 05/03/23 08:38 BUN 39 mg/dL (7-18) H 05/03/23 08:38 Creatinine 1.35 mg/dL (0.55-1.02) H 05/03/23 08:38 Est GFR (MDRD) Af Amer 50 mL/min (>60) L 05/03/23 08:38 Est GFR (MDRD) Non-Af 42 mL/min (>60) L 05/03/23 08:38 BUN/Creatinine Ratio 28.9 RATIO (10-20) H 05/03/23 08:38 Glucose 180 mg/dL (74-106) H 05/03/23 08:38 Microbiology Microbiology: Microbiology 05/03/23 08:38 Mucosa - Nose SARS-CoV-2, Influenza & RSV (PCR) - Final Influenzae A Goal Trough Goal Trough: 15-20 mcg/mL Pharmacy Plan for Drug Dosing Pharmacy Plan for Drug Dosing: [facility] IV VANCOMYCIN Consulting Physician: Dr. Clive Almendarez Indication: Pneumonia Goal Trough: 15-20 SrCr: 1.35 CrCl: 42 ml/min Comments: patient had initial dose of 1750mg IV x1 in ED 05/03/23 @1050 Vancomycin Dose: 500mg IV Q12hr to start 05/03/23 @2300 Pending Level: 05/04/23 @2230, prior to 4th total dose per protocol Pharmacy Service will continue to monitor and adjust dosing as required. 05/03/23 6595 <Electronically signed by Valery Self > Date _ Valery Self Cosigner Signature (if applicable): Date CC: ~ Signed [facility] Work Phone: 1(405) 645-723901-07-2024 History and physical note Author Cherelle Erickson [facility] May 03, 2023 3:34pm Note Date/Time May 03, 2023 1: 17pm [facility] Medical Records Department [address] [place] [address] H&P Exam - Hospitalist 05/03/23 1313 MR#: [id number] Acct: [id number] Name: CODI BLANK Rep #:[id number] : 1955 67 From: Cherelle Almendarez DO PCP: Dr. Errol Michel, DO Status:ADM IN Location: [facility] DI278-3 HPI - General General Date of Admission: 05/03/23 Date of Service: 05/03/23 Chief Complaint: Shortness of breath/nausea/vomiting/diarrhea HPI Narrative CODI BLANK, is a 67 F who presented to the emergency department on 05/03/2023 with multiple complaints including nausea, vomiting, diarrhea, fatigue,generalized weakness, chills, fever with Tmax of 101 at home, shortness of breath, cough with sputum production, and abdominal pain. Patient states she ispredominantly been having trouble since around [place]. She was seen as an outpatient was started on Levaquin and a prednisone taper. She was given 7 daysof Levaquin for suspected pneumonia which she has completed and she still has about 4 days left of her prednisone taper. She states that this did not really help her symptoms at all. She is not a great historian so it is difficult to ascertain the timeframe on all of this. She also started having fevers and chills and again I am not quite sure when this happened and neither does she. She is unable to describe her diarrhea in detail but states she is having multiple episodes a day. She reports that the nausea and vomiting has decreasedher oral intake and she is unclear if this was caused by her antibiotics or not. She is still coughing up yellowish looking sputum and has been wearing oxygen at 4 L at home. She typically wears oxygen at night bled into her CPAP at 4 L but is not on chronic oxygen during the day. Lately she has been wearing oxygenduring the day due to her shortness of breath. She is not ambulatory at baseline. She denies chest pain or worsening leg swelling. Vital signs on presentation showed a temperature of 97.4, heart rate of 125, blood pressure was 126/92, respiratory was 24, oxygen saturation was 91% on roomair and she was therefore placed on 2 L nasal cannula with improvement to her oxygenation to 96%. Her CBC showed a marked leukocytosis with a white count of 29.7 and a left shift with an 81.1% neutrophilia, chronic stable anemia with a hemoglobin of 8.6 and thrombocytosis with a platelet count of 754,000. Coags were normal. Chemistry panel revealed normal electrolytes with an elevated BUN/creatinine at 39 and 1.35 respectively which appears to be close to her baseline however baseline does appear to be fluctuating. Serum glucose was 180. Initial lactic acid was 4.8. Liver enzymes were normal. Troponin was normal. Lipase was 12. Her UA was overall unremarkable and showed no signs of infection. Chest x-ray showed degenerative changes with no acute cardiopulmonary process. PCR for COVID-19, influenza, and RSV was performed andshe was influenza A positive. In the emergency department she received IV antibiotics with ciprofloxacin and vancomycin. Prior to getting antibiotics blood and urine cultures were sent. [facility] Medical History Anxiety Asthma Chronic back pain Chronic respiratory failure with hypoxia COPD (chronic obstructive pulmonary disease) Depression Diverticulitis Fibromyalgia GERD (gastroesophageal reflux disease) Heart disease History of bronchitis History of heart attack History of pneumonia HTN (hypertension) Hypothyroidism Incisional hernia Nausea and vomiting Normocytic anemia RAUL (obstructive sleep apnea) Osteoarthritis Osteoporosis Sleep apnea Spinal stenosis spinal stimulator Thyroid disorder TIA (transient ischemic attack) Home Medications atorvastatin 80 mg tablet 80 mg PO QHS cholesterol 06/01/13 [History Last Taken 05/25/14 80 MG] clopidogrel 75 mg tablet 75 mg PO DAILY anti platelet 06/01/13 [History Last Taken 12/11/18] metoprolol tartrate 25 mg tablet 12.5 mg PO BID blood pressure 06/01/13 [History Last Taken 06/26/20 05:00] lorazepam 1 mg tablet (Ativan) 1 mg PO BID-TID PRN Anxiety 11/17/18 [History Last Taken Unknown] hydroxyzine HCl 50 mg tablet 50 mg PO QHS 12/01/18 [History Last Taken Unknown] duloxetine 60 mg capsule,delayed release 60 mg PO BID 06/19/20 [History Last Taken Unknown] buspirone 7.5 mg tablet 7.5 mg PO BID 06/03/22 [History Last Taken Unknown] diclofenac sodium 75 mg tablet,delayed release 75 mg PO BID 08/23/22 [History Last Taken Unknown] furosemide 40 mg tablet 60 mg PO DAILY 08/23/22 [History Last Taken Unknown] hydroxychloroquine 200 mg tablet 200 mg PO BID 08/23/22 [History Last Taken Unknown] levothyroxine 50 mcg tablet 50 mcg PO DAILY 08/23/22 [History Last Taken Unknown] liothyronine 5 mcg tablet 25 mcg PO DAILY 08/23/22 [History Last Taken Unknown] pregabalin 50 mg capsule 50 mg PO DAILY 08/23/22 [History Last Taken Unknown] topiramate 25 mg tablet 50 mg PO QHS 08/23/22 [History Last Taken Unknown] triamcinolone acetonide 0.1 % topical cream 1 applic topical BID 08/23/22 [History Last Taken Unknown] albuterol sulfate 90 mcg/actuation aerosol inhaler 1 - 2 puff inhalation Q6H PRNPRN COPD #2 device 03/11/23 [Rx Last Taken Unknown] guaifenesin 1,200 mg tablet, extended release 12 hr 1,200 mg PO Q12H #60 tabs 03/11/23 [Rx Last Taken Unknown] ipratropium 0.5 mg-albuterol 3 mg (2.5 mg base)/3 mL nebulization soln 3 ml inhalation Q4H PRN SOB #180 mL 03/11/23 [Rx Last Taken Unknown] mometasone-formoterol HFA 200 mcg-5 mcg/actuation aerosol inhaler (Dulera) 2 inhinhalation BID #3 ea 03/11/23 [Rx Last Taken Unknown] montelukast 10 mg tablet 10 mg PO QPM #90 tabs 03/11/23 [Rx Last Taken Unknown] nystatin 100,000 unit/mL oral suspension 5 ml mucous membrane TID #250 mL 03/11/23 [Rx Last Taken Unknown] tiotropium bromide 2.5 mcg/actuation mist for inhalation (Spiriva Respimat) 2 inh inhalation DAILY #3 ea 03/11/23 [Rx Last Taken Unknown] prednisone 20 mg tablet 40 mg (2 x 20 mg) PO DAILY #10 tabs 03/30/23 [Rx Last Taken Unknown] Allergy/AdvReac Type Severity Reaction Status Date / Time cefaclor [From Ceclor] Allergy Itching Verified 05/03/23 08:09 clarithromycin Allergy Hives Verified 05/03/23 08:09 doxycycline Allergy Itching Verified 05/03/23 08:09 Penicillins Allergy Hives Verified 05/03/23 08:09 Sulfa (Sulfonamide Allergy Hives Verified 05/03/23 08:09 Antibiotics) biotin AdvReac Unknown Unknown Verified 05/03/23 08:09 zolpidem [From Ambien] AdvReac Unknown mental Verified 05/03/23 08:09 issues Family History Father Asthma Heart disease Grandmother Breast cancer Diabetes Mother Heart disease COPD (chronic obstructive pulmonary disease) Other Cancer Surgical History H/O heart artery stent History of esophagogastroduodenoscopy (EGD) (~07/2018) History of incisional hernia repair (~12/20/18) History of incisional hernia repair Hx of cholecystectomy Previous back surgery S/P carpal tunnel release S/P correction of deviated nasal septum S/P hysterectomy S/P knee surgery Status post amputation of right foot Status post thyroidectomy Social History Smoking Status: Former smoker Tobacco: How many years used: 25 second hand exposure: Yes alcohol intake: never substance use type: does not use caffeine: Yes what type of physical activity do you participate in: none frequency: does not exercise ROS Constitutional Constitutional: Reports anorexia, chills, fatigue, fever(s), malaise and weakness; Denies change in weight, night sweats or other Eyes Eyes: Denies blurry vision, change in eye color, change in vision, discharge from eye(s), double vision, erythema, eye pain, loss of vision or other ENT HEENT: Reports headache(s), nasal congestion and sinus pressure; Denies abnormalhearing, dysphagia, ear pain, epistaxis, hearing loss, nasal discharge, post nasal drip, sore throat or other Cardiovascular Cardiovascular: Denies chest pain, claudication, dyspnea on exertion, edema, lightheadedness, orthopnea, palpitations, paroxysmal nocturnal dyspnea, rapid heart rate, syncope or other Respiratory/Chest Respiratory/Chest: Reports cough, dyspnea, excessive phlegm production and productive cough; Denies hemoptysis, shortness of breath with exertion, wheezingor other Gastrointestinal Gastrointestinal: Reports abdominal pain, diarrhea, nausea and vomiting; Denies coffee ground emesis, constipation, dyspepsia, hematemesis, hematochezia, loose stools, melena or other Genitourinary Genitourinary: Reports urinary incontinence; Denies burning urination, difficulty urinating, dysuria, hematuria, nocturia, urinary frequency, urinary hesitancy, urinary urgency or other Musculoskeletal Musculoskeletal: Reports back pain, joint pain and joint stiffness; Denies arthralgias, joint swelling, myalgias, neck pain or other Neurologic Neurologic: Reports abnormal gait and headache(s); Denies abnormal speech, confusion, disequilibrium, dizziness, focal weakness, numbness, paresthesias, seizure-like activity, seizures, syncope, tingling, tremor(s) or other Psychiatric Psychiatric: Reports anxiety and depression; Denies homicidal ideation, suicidalideation or other Endocrine Endocrinology: Denies change in body appearance, cold intolerance, excessive sweating, heat intolerance, polydipsia, polyuria or other Hematologic/Lymphatic Hematologic/Lymphatic: Denies anemia, easy bleeding, easy bruising, lymphadenopathy or other Vital Signs Vital Signs Vital Signs: 05/03/23 08:07 05/03/23 09:32 05/03/23 09:53 Temperature 97.4 F L 97.6 F L 97.6 F L Temperature Source Temporal Temporal Temporal Pulse Rate 125 H 113 H 114 H Respiratory Rate 24 H 20 H 22 H Blood Pressure 126/92 H 108/66 107/68 Blood Pressure Mean 103 80 81 Pulse Ox 97 91 91 Oxygen Delivery Method Room Air Room Air Room Air Oxygen Flow Rate (L/min) 05/03/23 10:33 05/03/23 10:35 05/03/23 12:33 Temperature Temperature Source Pulse Rate 117 H 107 H Respiratory Rate 20 H 16 Blood Pressure 104/84 H 97/63 Blood Pressure Mean 90 74 Pulse Ox 96 96 96 Oxygen Delivery Method Nasal Cannula Nasal Cannula Oxygen Flow Rate (L/min) 2 2 05/03/23 13:07 Temperature Temperature Source Pulse Rate 101 H Respiratory Rate 19 H Blood Pressure 115/61 Blood Pressure Mean 79 Pulse Ox 97 Oxygen Delivery Method Oxygen Flow Rate (L/min) Weight Weight: 65.771 kg Body Mass Index (BMI) 31.4 Physical Exam Const alert, oriented x3, no apparent distress and well nourished; Negative for average body habitus or healthy appearing Constitutional Narrative: Overweight, upper middle-aged, white female who appears much older than stated age, lying in bed, appears comfortable but does look acutely ill, at bedside, appears chronically ill General Appearance: cooperative HEENT normocephalic, head/scalp atraumatic, hearing grossly normal bilaterally and moist oral mucous membranes HEENT Narrative: Mallampati 3, thrush present Eyes PERRL and EOMs intact bilaterally; Negative for conjunctivae normal Eyes Narrative: Conjunctiva are mildly pale bilaterally, no scleral icterus Neck no lymphadenopathy and supple Neck Narrative: Neck is short and thick, trachea is midline, no noted thyroid enlargement Resp no retractions, no use of accessory muscles and No clear to auscultation bilaterally Resp Narrative: Coarse breath sounds bilaterally, few scattered wheeze that improved with cough,mild tachypnea but no signs of distress or extremis Auscultation: rhonchi and wheezes; Negative for crackles Cardio regular rhythm, S1 normal heart sound, S2 normal heart sound, no murmurs, no rub, no gallops and no clicks Cardio Narrative: Mild tachycardia GI normal to inspection, nondistended, normoactive bowel sounds and soft to palpation GI Narrative: Mild tenderness in the epigastric area Extremity Extremity Narrative: Trace bilateral lower extremity edema, no cyanosis or clubbing Skin no rashes or lesions noted, no wounds, skin turgor normal, no jaundice, no petechiae and no mottling Skin Narrative: Full exam was limited as patient was still in close however from what I could tell no lesions identified Neuro oriented x3, moves all extremities and no focal motor deficits Speech: speech normal Psych affect normal Psych Narrative: Eye contact is good, patient interacts appropriately, mood seems stable Results Lab / Micro Data 05/03/23 08:38 05/03/23 08:38 Labs: Laboratory Results - last 24 hr 05/03/23 08:38: WBC 29.7 H, RBC 3.41 L, Hgb 8.6 L, Hct 27.9 L, MCV 81.8, MCH 25.2 L, MCHC 30.8 L, RDW Std Deviation 54.9 H, RDW Coeff of Genaro 18.4 H, Plt Count 754 H*, MPV 9.6, Immature Gran % (Auto) 2.400 H, Neut % (Auto) 81.1 H, Lymph % (Auto) 11.1 L, [place] % (Auto) 4.9, Eos % (Auto) 0.1, Baso % (Auto) 0.4, Absolute Neuts (auto) 24.1 H, Absolute Lymphs (auto) 3.31, Nucleated RBC % 0.1, Differential Comment SCANNED, Diff Path Review August, Platelet Estimate MKD INC, PT 14.2, INR 1.1, APTT 30.6, Sodium 138, Potassium 4.4, Chloride 104, Carbon Dioxide 23.0, Anion Gap 11, BUN 39 H, Creatinine 1.35 H, Estim Creat Clear Calc 41.99, Est GFR (MDRD) Af Amer 50 L, Est GFR (MDRD) Non-Af 42 L, BUN/Creatinine Ratio 28.9 H, Glucose 180 H, Lactic Acid 4.8 H*, Calcium 8.9, Total Bilirubin 0.40, AST 20, ALT 12 L, Alkaline Phosphatase 87, Troponin I HighSens 19, Total Protein 7.2, Albumin 2.2 L, Globulin 5.0 H, Albumin/Globulin Ratio 0.4 L, Lipase 12 L 05/03/23 09:26: Urine Color Yellow, Urine Clarity Clear, Urine pH 6.0, Ur Specific [place] 1.020, Urine Protein 15 H, Urine Glucose (UA) Normal, Urine Ketones 50 H, Urine Occult Blood Negative, Urine Nitrite Negative, Urine Bilirubin 1 H, Urine Urobilinogen Normal, Ur Leukocyte Esterase Negative, Urine RBC 0SEEN, Urine WBC 0 SEEN, Ur Squamous Epith Cells 5-10 SEEN, Urine Bacteria 0 SEEN, Urine Mucus 0 SEEN 05/03/23 12:35: Troponin I High Sens 20 Micro: Microbiology 05/03/23 08:38 Mucosa - Nose SARS-CoV-2, Influenza & RSV (PCR) - Final Influenzae A ABG Data ABG results: ABG 05/03/23 12:06 Specimen Type ART Sample Site R Brach pH 7.35 Bicarbonate Actual 20.8 L Total CO2 22 Base Excess -5 L O2 Saturation 93 L O2 % 2.0 ABG pCO2 37.7 ABG pO2 71 L Marcia Test Positive O2 Delivery Device Cannula Vent Mode Not entered Imagaing Radiology Impression Chest X-Ray 05/03/23 08:56 IMPRESSION: Degenerative changes, as described above. No demonstrated acute cardiopulmonary process. Electronically Signed: Reece Gupta MD at 9:37 EST , Assessment & Plan Assessment/Plan (1) Influenza A: (2) Sepsis: (3) Oral thrush: (4) Nausea & vomiting: (5) Hypoxia: (6) CAP (community acquired pneumonia): (7) Lactic acidosis: (8) Leukocytosis: (9) Thrombocytosis: (10) Elevated serum creatinine: PLAN: Plan Sepsis secondary to influenza A/+-superimposed bacterial pneumonia -Patient meets criteria for sepsis with tachycardia, elevated respiratory rate, markedly elevated white blood cell count, lactic acidosis, new hypoxia, and suspected source -Blood, sputum, urine cultures are pending -Sepsis protocol -IV steroids -Mucinex 1200 mg twice daily -Check strep pneumo and Legionella antigens -Aggressive pulmonary toilet with I-S and Acapella -Scheduled DuoNebs and as needed albuterol -Fluid bolus at 30 cc/kg of body weight was given -Patient had recently been on Levaquin as an outpatient so we will utilize broad-spectrum antibiotics with more aggressive coverage to include vancomycin and cefepime due to penicillin allergy -Will hold Plaquenil while working up infection--> it is not clear at this time why she is taking it Lactic acidosis -Suspect related to the above and underlying hypoxia -Fluid boluses given -Cycle lactate per protocol and assess for clearance Leukocytosis/thrombocytosis -Suspect reactive from infection -Patient has also been on steroids -If thrombocytosis does not improve with antibiotic use could consider iron studies as iron deficiency anemia can increase platelet count and patient is anemic however this appears to be chronic and she is at baseline -Repeat CBC in a.m. Elevated serum creatinine -At baseline is unclear -Fluid boluses given -Reassess in a.m. -Hold NSAIDs -Hold Lasix for today but if blood pressure is stable would restart tomorrow if she does have pulmonary hypertension related to her COPD Oral thrush -Nystatin suspension swish for 7 days -Monitor Nausea/vomiting/diarrhea -Check enteric panel -Check C. difficile -Start Protonix 40 mg twice daily -Etiology is unclear -Liver enzymes are unremarkable and patient has history of cholecystectomy -May be related to antibiotic use at home or potential C. difficile infection with diarrhea -Will continue to monitor -As needed Zofran is available with promethazine for breakthrough History of RAUL -Continue CPAP with 4 L bleed and pressure of 12 cmH2O -Patient on nebulizers while hospitalized -Will hold home inhalers Hypothyroidism -Continue home Synthroid -Continue liothyronine Chronic hypoxic respiratory failure secondary to COPD -Per pulmonary notes patient is supposed to be on 2 L [id number] however she is only wearing this as needed per my discussion with her on admission -Will have to verify what her home order is for because she tells me she utilizes 4 L if she feels like she needs it -Most recent PFTs from 01/01/2023 show a reversible moderately severe large airwayobstruction with an FEV1 of 1 of 52% predicted and a DLCO of 33% -Patient does follow with an outpatient and sees Dr. Page at baseline -Recommend outpatient follow-up after discharge CAD/HTN/HPL -Continue home atorvastatin -Continue home Plavix -Continue home metoprolol -Hold home Lasix due to the appearance of mild dehydration on presentation Anxiety/depression/fibromyalgia -Continue home Topamax -Continue home Cymbalta -Continue home BuSpar -Continue home lorazepam -Continue nightly hydroxyzine DVT prophylaxis -Enoxaparin 40 mg daily CODE STATUS -DNR CCA okay for short-term intubation per discussion on admission Sepsis Attestation Sepsis Alert: Yes Sepsis Attestation: Agree w/Sepsis Date exam was performed: 05/03/23 Time exam was performed: 12:00 Possible Source of Sepsis: Pulmonary Sepsis Organ Dysfunction Criteria Present: Lactic Acid > 2 mmol/L Fluid Resuscitation Fluid resuscitation indicated?: Yes Fluid Resuscitation ordered: 30 ml/kg fluid bolus ordered Amount of fluid ordered: 2,000 Sepsis Note Date exam was performed: 05/03/23 Time exam was performed: 15:00 Sepsis Attestation: Sepsis re-evaluation was performed (Patient was fluid responsive with resolution of her lactic acidosis) Charges/Coding Visit Charges Inpatient E&M: 03998 Init Hosp L3 05/03/23 8509 <Electronically signed by Cherelle Erickson DO> Cosigner Signature (if applicable): CC: Dr. Cherelle Almendarez, DO; Dr. Errol Michel DO~ Signed [facility] Work Phone: 1(566) 829-117401-07-2024 Discharge summary Author Néstor Kirkpatrick [facility] May 03, 2023 2:50pm Note Date/Time May 03, 2023 8: 28am [facility] Medical Records Department [address] [place] [address] Emergency Department Summary 05/03/23 MR#: [id number] Acct: [id number] Name: CODI BLANK Rep #:[id number] : 1955 67 From: Néstor Duval PCP: Dr. Errol Michel DO Status:ADM IN Location: [facility]3 HC254-5 HPI History of Present Illness Chief Complaint: Nausea/Vomiting/Diarrhea Informant: patient and spouse/S.O. Onset/Context/Timing Onset: Weeks (2) Context: Gradual Onset Timing: Continuous Quality: Aching Location: Generalized Worsened by: Everything Relieved by: Nothing Narrative Narrative: Patient presents with nausea, vomiting, and chills that have been constant for the past 2 weeks. Patient states that it is gradually gotten worse. Patient states her primary care physician started her on antibiotics and steroids 6 [place]. Patient states she still has no improvement of her symptoms. Patient admits to some general myalgias. Patient states everything makes it worse. Patient states nothing makes her symptoms better. Patient admits to some subjective chills but did not take her temperature. Patient also admits to a sore throat. [facility] Medical History Anxiety Asthma Chronic back pain Chronic respiratory failure with hypoxia COPD (chronic obstructive pulmonary disease) Depression Diverticulitis Fibromyalgia GERD (gastroesophageal reflux disease) Heart disease History of bronchitis History of heart attack History of pneumonia HTN (hypertension) Hypothyroidism Incisional hernia Nausea and vomiting RAUL (obstructive sleep apnea) Osteoarthritis Osteoporosis Sleep apnea Spinal stenosis spinal stimulator Thyroid disorder TIA (transient ischemic attack) Home Medications atorvastatin 80 mg tablet 80 mg PO QHS cholesterol 06/01/13 [History Last Taken 05/25/14 80 MG] clopidogrel 75 mg tablet 75 mg PO DAILY anti platelet 06/01/13 [History Last Taken 12/11/18] metoprolol tartrate 25 mg tablet 12.5 mg PO BID blood pressure 06/01/13 [History Last Taken 06/26/20 05:00] lorazepam 1 mg tablet (Ativan) 1 mg PO BID-TID PRN Anxiety 11/17/18 [History Last Taken Unknown] hydroxyzine HCl 50 mg tablet 50 mg PO QHS 12/01/18 [History Last Taken Unknown] duloxetine 60 mg capsule,delayed release 60 mg PO BID 06/19/20 [History Last Taken Unknown] buspirone 7.5 mg tablet 7.5 mg PO BID 06/03/22 [History Last Taken Unknown] diclofenac sodium 75 mg tablet,delayed release 75 mg PO BID 08/23/22 [History Last Taken Unknown] furosemide 40 mg tablet 60 mg PO DAILY 08/23/22 [History Last Taken Unknown] hydroxychloroquine 200 mg tablet 200 mg PO BID 08/23/22 [History Last Taken Unknown] levothyroxine 50 mcg tablet 50 mcg PO DAILY 08/23/22 [History Last Taken Unknown] liothyronine 5 mcg tablet 25 mcg PO DAILY 08/23/22 [History Last Taken Unknown] pregabalin 50 mg capsule 50 mg PO DAILY 08/23/22 [History Last Taken Unknown] topiramate 25 mg tablet 50 mg PO QHS 08/23/22 [History Last Taken Unknown] triamcinolone acetonide 0.1 % topical cream 1 applic topical BID 08/23/22 [History Last Taken Unknown] albuterol sulfate 90 mcg/actuation aerosol inhaler 1 - 2 puff inhalation Q6H PRNPRN COPD #2 device 03/11/23 [Rx Last Taken Unknown] guaifenesin 1,200 mg tablet, extended release 12 hr 1,200 mg PO Q12H #60 tabs 03/11/23 [Rx Last Taken Unknown] ipratropium 0.5 mg-albuterol 3 mg (2.5 mg base)/3 mL nebulization soln 3 ml inhalation Q4H PRN SOB #180 mL 03/11/23 [Rx Last Taken Unknown] mometasone-formoterol HFA 200 mcg-5 mcg/actuation aerosol inhaler (Dulera) 2 inhinhalation BID #3 ea 03/11/23 [Rx Last Taken Unknown] montelukast 10 mg tablet 10 mg PO QPM #90 tabs 03/11/23 [Rx Last Taken Unknown] nystatin 100,000 unit/mL oral suspension 5 ml mucous membrane TID #250 mL 03/11/23 [Rx Last Taken Unknown] tiotropium bromide 2.5 mcg/actuation mist for inhalation (Spiriva Respimat) 2 inh inhalation DAILY #3 ea 03/11/23 [Rx Last Taken Unknown] prednisone 20 mg tablet 40 mg (2 x 20 mg) PO DAILY #10 tabs 03/30/23 [Rx Last Taken Unknown] Allergy/AdvReac Type Severity Reaction Status Date / Time cefaclor [From [facility]] Allergy Itching Verified 05/03/23 08:09 clarithromycin Allergy Hives Verified 05/03/23 08:09 doxycycline Allergy Itching Verified 05/03/23 08:09 Penicillins Allergy Hives Verified 05/03/23 08:09 Sulfa (Sulfonamide Allergy Hives Verified 05/03/23 08:09 Antibiotics) biotin AdvReac Unknown Unknown Verified 05/03/23 08:09 zolpidem [From Ambien] AdvReac Unknown mental Verified 05/03/23 08:09 issues Family History (Reviewed 03/11/23 @ 10:23 by Bonita Acevedo TALENT DEVELOPMENT CONSULTANT, TALENT DEVELOPMENT CONSULTANT-C) Father Asthma Heart disease Grandmother Breast cancer Diabetes Mother Heart disease COPD (chronic obstructive pulmonary disease) Other Cancer Surgical History H/O heart artery stent History of esophagogastroduodenoscopy (EGD) (~07/2018) History of incisional hernia repair (~12/20/18) History of incisional hernia repair Hx of cholecystectomy Previous back surgery S/P carpal tunnel release S/P correction of deviated nasal septum S/P hysterectomy S/P knee surgery Status post amputation of right foot Status post thyroidectomy Social History Smoking Status: Current every day smoker tobacco type: cigarettes Tobacco: How many years used: 25 second hand exposure: Yes alcohol intake: never substance use type: does not use caffeine: Yes what type of physical activity do you participate in: none frequency: does not exercise ROS ROS ED Constitutional Constitutional ED: Reports chills and subjective; Denies fever(s) Eyes Eyes: Denies blurry vision or change in vision ENT ENT ED: Reports sore throat; Denies rhinorrhea Cardiovascular Cardiovascular: Reports chest pain; Denies palpitations Respiratory/Chest Respiratory/Chest: Denies cough or dyspnea Gastrointestinal Gastrointestinal: Reports nausea and vomiting Genitourinary Genitourinary ED: Denies dysuria or hematuria Musculoskeletal Musculoskeletal: Reports myalgias Integumentary Denies abscess or rash Neurologic Neurologic: Reports headache(s); Denies weakness Allergic/Immunologic Allergic/Immunologic ED: Denies mouth swelling or urticaria EXAM Physical Exam Const Vital Signs: 05/03/23 08:07 05/03/23 09:32 05/03/23 09:53 Temperature 97.4 F L 97.6 F L 97.6 F L Temperature Source Temporal Temporal Temporal Pulse Rate 125 H 113 H 114 H Respiratory Rate 24 H 20 H 22 H Blood Pressure 126/92 H 108/66 107/68 Blood Pressure Mean 103 80 81 Pulse Ox 97 91 91 Oxygen Delivery Method Room Air Room Air Room Air Oxygen Flow Rate (L/min) 05/03/23 10:33 05/03/23 10:35 Temperature Temperature Source Pulse Rate 117 H Respiratory Rate 20 H Blood Pressure 104/84 H Blood Pressure Mean 90 Pulse Ox 96 96 Oxygen Delivery Method Nasal Cannula Nasal Cannula Oxygen Flow Rate (L/min) 2 2 Positive well nourished and well developed General Appearance ED: well developed and NAD HEENT Reports moist mucous membranes Neck supple and no JVD Resp normal respiratory effort Auscultation: diminished lung sounds diffuse Cardio regular rhythm Rate: tachycardic GI non-distended Palpation: soft and tender epigastric, LLQ, RLQ, LUQ, RUQ, periumbilical and suprapubic; Negative for guarding or rebound tenderness present Neuro oriented x3, CN's II-XII intact bilaterally and no sensory deficits noted Sensorium / Orientation: alert Motor Exam: strength 5/5 throughout MDM MDM MDM Narrative Medical decision making narrative: Differential diagnosis includes gastroenteritis, gastrointestinal bleeding, anemia, electrolyte abnormality, viral illness, urinary tract infection, pancreatitis, and pneumonia. Chest x-ray will be obtained to assess for pneumonia and pneumothorax. CBC will be obtained to assess for leukocytosis andanemia. Comprehensive metabolic profile will be obtained to assess for electrolyte abnormality, renal function, and hepatic function. Lipase will be obtained to assess for pancreatitis. Urinalysis will be obtained to assess for urinary tract infection. Lactate will be obtained to assess for sepsis. Lab Data Attestation: I reviewed the patient's lab results. Lab results narrative: CBC was reviewed. There is leukocytosis of 29.7. Hemoglobin was low at 8.6. This is consistent with previous result. Platelets were elevated at 754. Comprehensive metabolic profile was reviewed. BUN was 39 and creatinine was 1.35. These are consistent with prior results. Serum lactate was reviewed and was elevated at 4.8. Lipase was reviewed and was normal at 12. Urinalysis was reviewed. There is no evidence of urinary tract infection or hematuria. PT with INR and PTT were reviewed and were within normal limits. High-sensitivity troponin was reviewed and was normal at 19. COVID-19 PCR was reviewed and was negative. Influenza PCR was reviewed and was positive for influenza A but negative for influenza B. RSV PCR was reviewed and was negative. Labs: Laboratory Results - last 24 hr 05/03/23 05/03/23 08:38 09:26 WBC 29.7 H RBC 3.41 L Hgb 8.6 L Hct 27.9 L MCV 81.8 MCH 25.2 L MCHC 30.8 L RDW Std Deviation 54.9 H RDW Coeff of Genaro 18.4 H Plt Count 754 H* MPV 9.6 Immature Gran % (Auto) 2.400 H Neut % (Auto) 81.1 H Lymph % (Auto) 11.1 L Imperial % (Auto) 4.9 Eos % (Auto) 0.1 Baso % (Auto) 0.4 Absolute Neuts (auto) 24.1 H Absolute Lymphs (auto) 3.31 Nucleated RBC % 0.1 Differential Comment SCANNED Diff Path Review May foll Platelet Estimate MKD INC PT 14.2 INR 1.1 APTT 30.6 Sodium 138 Potassium 4.4 Chloride 104 Carbon Dioxide 23.0 Anion Gap 11 BUN 39 H Creatinine 1.35 H Estim Creat Clear Calc 41.99 Est GFR (MDRD) Af Amer 50 L Est GFR (MDRD) Non-Af 42 L BUN/Creatinine Ratio 28.9 H Glucose 180 H Lactic Acid 4.8 H* Calcium 8.9 Total Bilirubin 0.40 AST 20 ALT 12 L Alkaline Phosphatase 87 Troponin I High Sens 19 Total Protein 7.2 Albumin 2.2 L Globulin 5.0 H Albumin/Globulin Ratio 0.4 L Lipase 12 L Urine Color Yellow Urine Clarity Clear Urine pH 6.0 Ur Specific [place] 1.020 Urine Protein 15 H Urine Glucose (UA) Normal Urine Ketones 50 H Urine Occult Blood Negative Urine Nitrite Negative Urine Bilirubin 1 H Urine Urobilinogen Normal Ur Leukocyte Esterase Negative Urine RBC 0 SEEN Urine WBC 0 SEEN Ur Squamous Epith Cells 5-10 SEEN Urine Bacteria 0 SEEN Urine Mucus 0 SEEN Radiography Diagnostic Testing: Clinical Impression(s) from Imaging Studies Chest X-Ray 05/03/23 08:56 IMPRESSION: Degenerative changes, as described above. No demonstrated acute cardiopulmonary process. Electronically Signed: Reece Gupta MD at 9:37 EST , PA and lateral chest x-ray was obtained. There are 2 views. On my independent interpretation, lung prasad are clear. There is normal cardiac silhouette. Bony thorax shows some degenerative changes and prior fusion of the upper lumbarand lower thoracic spine. There is no acute process noted. Radiologist also interpreted the x-ray and agrees. EKG Initial EKG: Attestation: I personally reviewed and interpreted this EKG as follows: Interpretation: Sinus Tachycardia (115) and Non-Specific ST Changes Comments: EKG was obtained. On my independent interpretation, it shows sinus tachycardia with a rate of 115. HI interval was normal at 154 ms. QRS interval was normal at 86 ms. QTc interval was borderline at 489 ms. [place] was normal. There are nonspecific ST-T wave changes noted. Prior EKG tracings: available for review Prior: Unchanged (03/29/2023) Management Discussion w/another healthcare provider: Hospitalist (Dr. Almendarez) Treatment and Re-Evaluation :: Patient was given 500 cc of normal saline initially. Because of the elevated lactate and leukocytosis, patient did trigger sepsis. Because of this, PT with INR and PTT were obtained. Blood cultures were obtained. Urine culture was obtained. Patient was started on Cipro and vancomycin for unknown source. Casewas discussed with the hospitalist for admission. She will obtain an ABG to determine if patient can go to general medical floor versus PCU. Patient and spouse understood and were agreeable with the plan. All questions were answered. Discharge Plan Dx/Rx/DC Orders Clinical Impression: Severe sepsis, COPD (chronic obstructive pulmonary disease), Influenza A Disposition Disposition: Acute Care Hospital [facility] What to do if you have Problems For any increased pain, shortness of breath, bleeding, nausea or vomiting, chestpain, or any unexpected problems, contact your Primary Care Provider. Call [facility] ([phone]) or report to the closest Emergency Room. Call 911 if necessary. 05/03/23 1450 <Electronically signed by Néstor Kirkpatrick DO> Cosigner Signature (if applicable): CC: Dr. Errol Micehl DO ~ Signed [facility] Work Phone: 1(567) 585-138912-04-2023 Progress note Author [facility] March 30, 2023 3:45pm Note Date/Time March 30, 2023 2 :13pm [facility] Medical Records Department [address] [place] [id number] Progress Note 03/30/23 1412 MR#: [id number] Acct: [id number] Name: CODI BLANK Rep #:[id number] : 1955 67 From: Le Alba MD PCP: Dr. Errol Michel DO Status:ADM IN Location: [place] [address] Subjective Subjective Patient seen and examined. She was admitted with a complaint of altered mental status an shortness of breath. Sh is being managed for acute exacerbation of COPD. She feels better today. She is on 4L of oxygen. She denies any cough, chest pain, palpitations, dizziness, nausea, vomiting or any other symptoms. Review of systems is otherwise negative. She has otherwise remained hemodynamically stable. Objective Data Objective Data Vital Signs: Vital Signs Temp Pulse Resp BP Pulse Ox O2 Del Method O2 Flow Rate 98.7 F 74 20 H 103/50 L 91 Room Air 3 03/30/23 09:54 03/30/23 13:34 03/30/23 13:34 03/30/23 09:54 03/30/23 12:30 03/30/23 12:30 03/30/23 10:46 Oxygen Flow Rate (L/min) 3 Oxygen Delivery Method Room Air Weight: 145 lb 11.609 oz Body Mass Index (BMI) 28.4 Intake & Output: Intake and Output for Last 24 Hours 03/28/23 03/29/23 03/30/23 23:59 23:59 23:59 Intake Total 1100 / 1320 770 / 770 Output Total 1525 / 1525 Balance 1100 / 695 -755 / -755 Lab / Micro Data 03/30/23 06:33 03/30/23 06:33 Labs: Laboratory Results - last 24 hr 03/29/23 13:45: WBC 17.3 H, RBC 4.14 L, Hgb 10.3 L, Hct 33.7 L, MCV 81.4, MCH 24.9 L, MCHC 30.6 L, RDW Std Deviation 51.5 H, RDW Coeff of Genaro 17.2 H, Plt Count 557 H, MPV 9.4, Immature Gran % (Auto) 0.600, Neut % (Auto) 75.0 H, Lymph % (Auto) 15.9 L, Imperial % (Auto) 7.0, Eos % (Auto) 1.2, Baso % (Auto) 0.3, Absolute Neuts (auto) 12.9 H, Absolute Lymphs (auto) 2.74, Nucleated RBC % 0, PT 15.2 H, INR 1.2, APTT 29.1, Sodium 141, Potassium 3.9, Chloride 109 H, Carbon Dioxide 27.0, Anion Gap 5, BUN 38 H, Creatinine 2.06 H, Estim Creat Clear Calc 60.37, Est GFR (MDRD) Af Amer 31 L, Est GFR (MDRD) Non-Af 26 L, BUN/Creatinine Ratio 18.4, Glucose 123 H, Lactic Acid 1.7, Calcium 8.2 L, Total Bilirubin 0.20, AST 9L, ALT 11 L, Alkaline Phosphatase 94, Troponin I High Sens 7, B-Natriuretic Peptide 12.9, Total Protein 7.4, Albumin 2.9 L, Globulin 4.5 H, Albumin/GlobulinRatio 0.6 L 03/29/23 14:30: Urine Color Yellow, Urine Clarity Clear, Urine pH 5.0, Ur Specific [place] 1.025, Urine Protein 15 H, Urine Glucose (UA) Normal, Urine Ketones 5 H, Urine Occult Blood Negative, Urine Nitrite Negative, Urine Bilirubin 1 H, Urine Urobilinogen Normal, Ur Leukocyte Esterase 25 H, Urine RBC 0 SEEN, Urine WBC 0-5 SEEN, Ur Squamous Epith Cells 0-5 SEEN, Urine Bacteria 0 SEEN, Urine Mucus 0 SEEN, Ur Random Sodium 23, Urine Creatinine 147.00 03/30/23 06:33: WBC 10.4, RBC 3.54 L, Hgb 9.2 L, Hct 29.4 L, MCV 83.1, MCH 26.0 L, MCHC 31.3 L, RDW Std Deviation 52.8 H, RDW Coeff of Genaro 17.3 H, Plt Count 420, MPV 9.2, Sodium 140, Potassium 4.1, Chloride 110 H, Carbon Dioxide 27.0, Anion Gap 3 L, BUN 25 H, Creatinine 1.19 H, Estim Creat Clear Calc 32.95, Est GFR (MDRD) Af Amer 58 L, Est GFR (MDRD) Non-Af 48 L, BUN/Creatinine Ratio 21.0 H, Glucose 88, Calcium 8.0 L Micro: Microbiology 03/29/23 14:30 Urine Catheter - Catheter Urine Culture - Preliminary Culture exhibits no growth. 03/30/23 01:16 Mucosa - Nasopharyngeal Respiratory Panel (PCR) - Final 03/29/23 15:14 Nasal Secretion SARS-CoV-2 & FLU Antigen (Rapid) - Final ABG Data ABG results: ABG 03/29/23 15:03 Specimen Type ART Sample Site L Brach pH 7.37 Bicarbonate Actual 22.9 Total CO2 24 Base Excess -2 O2 Saturation 94 L O2 % 3.0 ABG pCO2 39.3 ABG pO2 71 L Marcia Test N/A O2 Delivery Device Not entered Vent Mode Not entered Radiography Diagnostic Testing: Radiology Impression Brain CT 03/29/23 14:09 IMPRESSION: There are no acute findings. Chronic involutional changes of the brain. Electronically Signed: Trev Balbuena MD at 15:37 EST , Chest X-Ray 03/29/23 15:03 IMPRESSION: Small bilateral pleural effusions. These findings appear worse. Electronically Signed: Trev Balbuena MD at 15:20 EST , Physical Exam Resp Resp Narrative: mildly diminished breath sounds bibasally, no wheezes or crackles. On 4L of oxygen by nasal canula Cardio regular rate, regular rhythm, S1 normal heart sound, S2 normal heart sound and no murmurs GI normal to inspection, nondistended, normoactive bowel sounds, soft to palpation,non-tender and non-distended Extremity normal capillary refill, no clubbing, cyanosis or edema and no calf tenderness Skin General Skin Exam: no breakdown Neuro CN's II-XII intact bilaterally, no focal motor deficits, no sensory deficits noted and deep tendon reflexes 2+ bilaterally Motor Exam: strength 5/5 throughout and general weakness Psych thought process normal and cooperative Appearance: appropriate Assessment & Plan Assessment/Plan (1) Acute on chronic hypoxic respiratory failure: (2) Acute kidney injury superimposed on chronic kidney disease: (3) Acute alteration in mental status: PLAN: Plan #Hypoxia due to COPD/asthma exacerbation * on 4L of oxygen now * says she wears 4L of oxygen with her CPAP a night * had been treated for an URTI over the last few days prior to admission * CXR showed bilateral pleural effusions, slightly worse from previous CXR * respiratory panel negative. COVID negative. * pulmnology consulted * titrate oxygen to maintain sats >90% * breathing treatment with bronchodilators * #Danyel: Cr trending downards. Will continue to monitor. Cr is down to 1.19 from 2.06 on admission. #CAD: on plavix and statin. #Debility * Patient has right BKA and left lower extremity is also in a podiatry boot. She says she had a fracture of her left lower extremity some weeks ago. * PT OT on board. For precautions. * #RAUL: On CPAP nightly. #Hypertension: On Lopressor. #Hyperlipidemia: On statin #Hypothyroidism: On Synthroid #Anxiety and depression: On BuSpar and duloxetine. DVT prophylaxis: heparin Charges/Coding Visit Charges Inpatient E&M: 85964 Subs Hosp L2 03/30/23 8321 <Electronically signed by Le Alba MD> Le Alba MD Cosigner Signature (if applicable): CC: ~ Signed [facility] Work Phone: [phone]) 842-890812-04-2023 Consult note Author Dorothy Tenorio [facility] March 30, 2023 11:37am Note Date/Time March 30, 2023 1 1:37am [facility] Medical Records Department [address] [place] [address] Consultation - House Parent 03/30/23 1118 MR#: [id number] Acct: [id number] Name: CODI BLANK Rep #:[id number] : 1955 67 From: Dorothy Martin PCP: Dr. Errol Michel, DO Status:ADM IN Location: [address] Assessment & Plan Assessment/Plan (1) Acute on chronic hypoxic respiratory failure: PLAN: Plan Placement * Acute on chronic respiratory failure, patient is on home oxygen at 3 to 4 L * DANYEL * Moderate to severe COPD, FEV1 51% and DLCO 33% on her most recent PFTs * RAUL on home CPAP * Debility * Right BKA * CAD on statin and Plavix Plan -Patient appears to be back to her baseline from pulmonary standpoint. Viral panel is negative. She has signs of mild volume overload given bilateral pleural effusion although too small for thoracentesis. There is no active wheezing on exam. No CO2 retention on ABG. Hold off steroids. - Recommend fluid restriction and gentle diuresis. Kidney function appears to be improving -Continue home inhalers -Continue CPAP use at night during sleeping hours -DVT prophylaxis subcu heparin HPI Consult Data Date of Consult: 03/30/23 HPI Narrative Reason for Consultation: COPD HPI Narrative: CODI BLANK, is a 67 F past medical history of moderate to severe COPD FEV1 of 51%, is DLCO 33% who presents with altered mental status and concern forworsening hypoxia. Upon evaluation patient reports that she is recovering from a COPD exacerbation and upper respiratory tract infection. She currently feels that her breathing is back to baseline. She denies worsening cough. She denieswheezing. She is usually on 3 to 4 L nasal cannula at home. She reports that her felt that she was confused and brought her to the hospital. Chest x-ray yesterday showed small bilateral pleural effusions without signs of consolidations or pneumonia. Patient has been afebrile. Her viral panel is negative. [facility] Medical History (Reviewed 03/11/23 @ 10:23 by Bonita Acveedo TALENT DEVELOPMENT CONSULTANT, TALENT DEVELOPMENT CONSULTANT-C) Anxiety Asthma Chronic back pain Chronic respiratory failure with hypoxia COPD (chronic obstructive pulmonary disease) Depression Diverticulitis Fibromyalgia GERD (gastroesophageal reflux disease) Heart disease History of bronchitis History of heart attack History of pneumonia HTN (hypertension) Hypothyroidism Incisional hernia Nausea and vomiting RAUL (obstructive sleep apnea) Osteoarthritis Osteoporosis Sleep apnea Spinal stenosis spinal stimulator Thyroid disorder TIA (transient ischemic attack) Home Medications atorvastatin 80 mg tablet 80 mg PO QHS cholesterol 06/01/13 [History Last Taken 05/25/14 80 MG] clopidogrel 75 mg tablet 75 mg PO DAILY anti platelet 06/01/13 [History Last Taken 12/11/18] metoprolol tartrate 25 mg tablet 12.5 mg PO BID blood pressure 06/01/13 [History Last Taken 06/26/20 05:00] lorazepam 1 mg tablet (Ativan) 1 mg PO BID-TID PRN Anxiety 11/17/18 [History Last Taken Unknown] hydroxyzine HCl 50 mg tablet 50 mg PO QHS 12/01/18 [History Last Taken Unknown] duloxetine 60 mg capsule,delayed release 60 mg PO BID 06/19/20 [History Last Taken Unknown] buspirone 7.5 mg tablet 7.5 mg PO BID 06/03/22 [History Last Taken Unknown] diclofenac sodium 75 mg tablet,delayed release 75 mg PO BID 08/23/22 [History Last Taken Unknown] furosemide 40 mg tablet 60 mg PO DAILY 08/23/22 [History Last Taken Unknown] hydroxychloroquine 200 mg tablet 200 mg PO BID 08/23/22 [History Last Taken Unknown] levothyroxine 50 mcg tablet 50 mcg PO DAILY 08/23/22 [History Last Taken Unknown] liothyronine 5 mcg tablet 25 mcg PO DAILY 08/23/22 [History Last Taken Unknown] pregabalin 50 mg capsule 50 mg PO DAILY 08/23/22 [History Last Taken Unknown] topiramate 25 mg tablet 50 mg PO QHS 08/23/22 [History Last Taken Unknown] triamcinolone acetonide 0.1 % topical cream 1 applic topical BID 08/23/22 [History Last Taken Unknown] albuterol sulfate 90 mcg/actuation aerosol inhaler 1 - 2 puff inhalation Q6H PRNPRN COPD #2 device 03/11/23 [Rx Last Taken Unknown] guaifenesin 1,200 mg tablet, extended release 12 hr 1,200 mg PO Q12H #60 tabs 03/11/23 [Rx Last Taken Unknown] ipratropium 0.5 mg-albuterol 3 mg (2.5 mg base)/3 mL nebulization soln 3 ml inhalation Q4H PRN SOB #180 mL 03/11/23 [Rx Last Taken Unknown] mometasone-formoterol HFA 200 mcg-5 mcg/actuation aerosol inhaler (Dulera) 2 inhinhalation BID #3 ea 03/11/23 [Rx Last Taken Unknown] montelukast 10 mg tablet 10 mg PO QPM #90 tabs 03/11/23 [Rx Last Taken Unknown] nystatin 100,000 unit/mL oral suspension 5 ml mucous membrane TID #250 mL 03/11/23 [Rx Last Taken Unknown] tiotropium bromide 2.5 mcg/actuation mist for inhalation (Spiriva Respimat) 2 inh inhalation DAILY #3 ea 03/11/23 [Rx Last Taken Unknown] Allergy/AdvReac Type Severity Reaction Status Date / Time cefaclor [From [facility]] Allergy Itching Verified 03/11/23 10:11 clarithromycin Allergy Hives Verified 03/11/23 10:11 doxycycline Allergy Itching Verified 03/11/23 10:11 Penicillins Allergy Hives Verified 03/11/23 10:11 Sulfa (Sulfonamide Allergy Hives Verified 03/11/23 10:11 Antibiotics) biotin AdvReac Unknown Unknown Verified 03/11/23 10:11 zolpidem [From Ambien] AdvReac Unknown mental Verified 03/11/23 10:11 issues Family History (Reviewed 03/11/23 @ 10:23 by Bonita Acevedo TALENT DEVELOPMENT CONSULTANT, TALENT DEVELOPMENT CONSULTANT-C) Father Asthma Heart disease Grandmother Breast cancer Diabetes Mother Heart disease COPD (chronic obstructive pulmonary disease) Other Cancer Surgical History (Reviewed 03/11/23 @ 10:23 by Bonita Acevedo TALENT DEVELOPMENT CONSULTANT, TALENT DEVELOPMENT CONSULTANT-C) H/O heart artery stent History of esophagogastroduodenoscopy (EGD) (~07/2018) History of incisional hernia repair (~12/20/18) History of incisional hernia repair Hx of cholecystectomy Previous back surgery S/P carpal tunnel release S/P correction of deviated nasal septum S/P hysterectomy S/P knee surgery Status post amputation of right foot Status post thyroidectomy Social History (Reviewed 03/11/23 @ 10:23 by Bonita Acevedo TALENT DEVELOPMENT CONSULTANT, TALENT DEVELOPMENT CONSULTANT-C) Smoking Status: Former smoker Tobacco: How many years used: 25 second hand exposure: Yes alcohol intake: never substance use type: does not use caffeine: Yes what type of physical activity do you participate in: none frequency: does not exercise ROS ROS Narrative Negative except as mentioned above Physical Exam Narrative General alert oriented in no acute distress HEENT. Normocephalic atraumatic, pupils equal and reactive Respiratory reduced air entry bilaterally, no wheeze, no crackles Cardiac S1-S2, regular rate and rhythm GI abdomen soft and nontender MSK right BKA, Skin no rashes Neuro moves all extremities, no dysarthria, no facial droop Lab / Micro Data 03/30/23 06:33 03/30/23 06:33 Labs: Laboratory Results - last 24 hr 03/29/23 13:45: WBC 17.3 H, RBC 4.14 L, Hgb 10.3 L, Hct 33.7 L, MCV 81.4, MCH 24.9 L, MCHC 30.6 L, RDW Std Deviation 51.5 H, RDW Coeff of Genaro 17.2 H, Plt Count 557 H, MPV 9.4, Immature Gran % (Auto) 0.600, Neut % (Auto) 75.0 H, Lymph % (Auto) 15.9 L, Imperial % (Auto) 7.0, Eos % (Auto) 1.2, Baso % (Auto) 0.3, Absolute Neuts (auto) 12.9 H, Absolute Lymphs (auto) 2.74, Nucleated RBC % 0, PT15.2 H, INR 1.2, APTT 29.1, Sodium 141, Potassium 3.9, Chloride 109 H, Carbon Dioxide 27.0, Anion Gap 5, BUN 38 H, Creatinine 2.06 H, Estim Creat Clear Calc 60.37, Est GFR (MDRD) Af Amer 31 L, Est GFR (MDRD) Non-Af 26 L, BUN/Creatinine Ratio 18.4, Glucose 123 H, Lactic Acid 1.7, Calcium 8.2 L, Total Bilirubin 0.20, AST 9 L, ALT 11 L, Alkaline Phosphatase 94, Troponin I High Sens 7, B-Natriuretic Peptide 12.9, Total Protein 7.4, Albumin 2.9 L, Globulin 4.5 H, Albumin/Globulin Ratio 0.6 L 03/29/23 14:30: Urine Color Yellow, Urine Clarity Clear, Urine pH 5.0, Ur Specific [place] 1.025, Urine Protein 15 H, Urine Glucose (UA) Normal, Urine Ketones 5 H, Urine Occult Blood Negative, Urine Nitrite Negative, Urine Bilirubin 1 H, Urine Urobilinogen Normal, Ur Leukocyte Esterase 25 H, Urine RBC 0 SEEN, Urine WBC 0-5 SEEN, Ur Squamous Epith Cells 0-5 SEEN, Urine Bacteria 0 SEEN, Urine Mucus 0 SEEN, Ur Random Sodium 23, Urine Creatinine 147.00 03/30/23 06:33: WBC 10.4, RBC 3.54 L, Hgb 9.2 L, Hct 29.4 L, MCV 83.1, MCH 26.0 L, MCHC 31.3 L, RDW Std Deviation 52.8 H, RDW Coeff of Genaro 17.3 H, Plt Count 420, MPV 9.2, Sodium 140, Potassium 4.1, Chloride 110 H, Carbon Dioxide 27.0, Anion Gap 3 L, BUN 25 H, Creatinine 1.19 H, Estim Creat Clear Calc 32.95, Est GFR (MDRD) Af Amer 58 L, Est GFR (MDRD) Non-Af 48 L, BUN/Creatinine Ratio 21.0 H, Glucose 88, Calcium 8.0 L Micro: Microbiology 03/29/23 14:30 Urine Catheter - Catheter Urine Culture - Preliminary Culture exhibits no growth. 03/30/23 01:16 Mucosa - Nasopharyngeal Respiratory Panel (PCR) - Final 03/29/23 15:14 Nasal Secretion SARS-CoV-2 & FLU Antigen (Rapid) - Final ABG Data ABG results: ABG 03/29/23 15:03 Specimen Type ART Sample Site L Brach pH 7.37 Bicarbonate Actual 22.9 Total CO2 24 Base Excess -2 O2 Saturation 94 L O2 % 3.0 ABG pCO2 39.3 ABG pO2 71 L Marcia Test N/A O2 Delivery Device Not entered Vent Mode Not entered Imagaing Radiology Impression Brain CT 03/29/23 14:09 IMPRESSION: There are no acute findings. Chronic involutional changes of the brain. Electronically Signed: Trev Balbuena MD at 15:37 EST , Chest X-Ray 03/29/23 15:03 IMPRESSION: Small bilateral pleural effusions. These findings appear worse. Electronically Signed: Trev Balbuena MD at 15:20 EST , Charges/Coding Visit Charges Inpatient E&M: 23477 Init Hosp L3 03/30/23 1137 <Electronically signed by Dorothy Tenorio MD> Cosigner Signature (if applicable): CC: MELA Acevedo; Dr. David Blackwell DO; Dr. Henry Page MD; Dr. Caesar Salgado DO; Dr. Dorothy Tenorio MD; Dr. Errol Michel DO; Dr. Sebastian Rich MD~ Signed [facility] Work Phone: [phone] 570-463212-04-2023 History and physical note Author David Blackwell [facility] March 30, 2023 12:29am Note Date/Time March 29, 2023 5 :30pm [facility] Medical Records Department [address] [place] [id number] H&P Exam - Hospitalist 03/29/23 1714 MR#: [id number] Acct: [id number] Name: CODI BLANK Rep #:[id number] : 1955 67 From: David gardiner DO PCP: Dr. Errol Michel DO Status:ADM IN Location: [facility] [id number] HPI - General General Date of Admission: 03/29/23 Date of Service: 03/29/23 Chief Complaint: Worsening shortness of breath, altered mentation HPI Narrative CODI BLANK, is a 67 F who presented to [facility] ED on 03/29/2023 with shortness of breath and altered mentation. Patient seen at bedside in ED, present. Patient was sitting up in bed fairly comfortably, in no acute distress. Patient was alert and was answering most questions appropriately, but was often looking around somewhat wide-eyed and didnot appear to be completely oriented. Patient's states that she has severe COPD and wears oxygen at home, however he noticed that she was more shortof breath this morning and had altered mentation so he called EMS to bring her to the ED. Patient has been wearing her CPAP machine for RAUL at home as normal. does state patient has been eating and drinking a little bit less over the past few days. He states patient has been on antibiotics for an upper respiratory faction over the last few days. He does state that this has happened in the past for the patient. Patient currently denies any acute pain or discomfort. She denies any significant shortness of breath at rest. Denies any fevers or chills. No other acute concerns at this time. [facility] Medical History (Reviewed 03/11/23 @ 10:23 by Bonita Acevedo TALENT DEVELOPMENT CONSULTANT, TALENT DEVELOPMENT CONSULTANT-C) Anxiety Asthma Chronic back pain Chronic respiratory failure with hypoxia COPD (chronic obstructive pulmonary disease) Depression Diverticulitis Fibromyalgia GERD (gastroesophageal reflux disease) Heart disease History of bronchitis History of heart attack History of pneumonia HTN (hypertension) Hypothyroidism Incisional hernia Nausea and vomiting RAUL (obstructive sleep apnea) Osteoarthritis Osteoporosis Sleep apnea Spinal stenosis spinal stimulator Thyroid disorder TIA (transient ischemic attack) Home Medications atorvastatin 80 mg tablet 80 mg PO QHS cholesterol 06/01/13 [History Last Taken 05/25/14 80 MG] clopidogrel 75 mg tablet 75 mg PO DAILY anti platelet 06/01/13 [History Last Taken 12/11/18] metoprolol tartrate 25 mg tablet 12.5 mg PO BID blood pressure 06/01/13 [History Last Taken 06/26/20 05:00] lorazepam 1 mg tablet (Ativan) 1 mg PO BID-TID PRN Anxiety 11/17/18 [History Last Taken Unknown] hydroxyzine HCl 50 mg tablet 50 mg PO QHS 12/01/18 [History Last Taken Unknown] duloxetine 60 mg capsule,delayed release 60 mg PO BID 06/19/20 [History Last Taken Unknown] buspirone 7.5 mg tablet 7.5 mg PO BID 06/03/22 [History Last Taken Unknown] diclofenac sodium 75 mg tablet,delayed release 75 mg PO BID 08/23/22 [History Last Taken Unknown] furosemide 40 mg tablet 60 mg PO DAILY 08/23/22 [History Last Taken Unknown] hydroxychloroquine 200 mg tablet 200 mg PO BID 08/23/22 [History Last Taken Unknown] levothyroxine 50 mcg tablet 50 mcg PO DAILY 08/23/22 [History Last Taken Unknown] liothyronine 5 mcg tablet 25 mcg PO DAILY 08/23/22 [History Last Taken Unknown] pregabalin 50 mg capsule 50 mg PO DAILY 08/23/22 [History Last Taken Unknown] topiramate 25 mg tablet 50 mg PO QHS 08/23/22 [History Last Taken Unknown] triamcinolone acetonide 0.1 % topical cream 1 applic topical BID 08/23/22 [History Last Taken Unknown] albuterol sulfate 90 mcg/actuation aerosol inhaler 1 - 2 puff inhalation Q6H PRNPRN COPD #2 device 03/11/23 [Rx Last Taken Unknown] guaifenesin 1,200 mg tablet, extended release 12 hr 1,200 mg PO Q12H #60 tabs 03/11/23 [Rx Last Taken Unknown] ipratropium 0.5 mg-albuterol 3 mg (2.5 mg base)/3 mL nebulization soln 3 ml inhalation Q4H PRN SOB #180 mL 03/11/23 [Rx Last Taken Unknown] mometasone-formoterol HFA 200 mcg-5 mcg/actuation aerosol inhaler (Dulera) 2 inhinhalation BID #3 ea 03/11/23 [Rx Last Taken Unknown] montelukast 10 mg tablet 10 mg PO QPM #90 tabs 03/11/23 [Rx Last Taken Unknown] nystatin 100,000 unit/mL oral suspension 5 ml mucous membrane TID #250 mL 03/11/23 [Rx Last Taken Unknown] tiotropium bromide 2.5 mcg/actuation mist for inhalation (Spiriva Respimat) 2 inh inhalation DAILY #3 ea 03/11/23 [Rx Last Taken Unknown] Allergy/AdvReac Type Severity Reaction Status Date / Time cefaclor [From [facility]] Allergy Itching Verified 03/11/23 10:11 clarithromycin Allergy Hives Verified 03/11/23 10:11 doxycycline Allergy Itching Verified 03/11/23 10:11 Penicillins Allergy Hives Verified 03/11/23 10:11 Sulfa (Sulfonamide Allergy Hives Verified 03/11/23 10:11 Antibiotics) biotin AdvReac Unknown Unknown Verified 03/11/23 10:11 zolpidem [From Ambien] AdvReac Unknown mental Verified 03/11/23 10:11 issues Family History (Reviewed 03/11/23 @ 10:23 by Bonita Acevedo TALENT DEVELOPMENT CONSULTANT, TALENT DEVELOPMENT CONSULTANT-C) Father Asthma Heart disease Grandmother Breast cancer Diabetes Mother Heart disease COPD (chronic obstructive pulmonary disease) Other Cancer Surgical History (Reviewed 03/11/23 @ 10:23 by Bonita Acevedo TALENT DEVELOPMENT CONSULTANT, TALENT DEVELOPMENT CONSULTANT-C) H/O heart artery stent History of esophagogastroduodenoscopy (EGD) (~07/2018) History of incisional hernia repair (~12/20/18) History of incisional hernia repair Hx of cholecystectomy Previous back surgery S/P carpal tunnel release S/P correction of deviated nasal septum S/P hysterectomy S/P knee surgery Status post amputation of right foot Status post thyroidectomy Social History (Reviewed 03/11/23 @ 10:23 by Bonita Acevedo TALENT DEVELOPMENT CONSULTANT, TALENT DEVELOPMENT CONSULTANT-C) Smoking Status: Former smoker Tobacco: How many years used: 25 second hand exposure: Yes alcohol intake: never substance use type: does not use caffeine: Yes what type of physical activity do you participate in: none frequency: does not exercise ROS Constitutional Constitutional: Denies chills, fatigue, fever(s) or weakness Eyes Eyes: Denies change in vision Cardiovascular Cardiovascular: Denies chest pain Respiratory/Chest Respiratory/Chest: Reports cough; Denies shortness of breath at rest or wheezing Gastrointestinal Gastrointestinal: Denies abdominal pain, nausea or vomiting Genitourinary Genitourinary: Denies dysuria Musculoskeletal Musculoskeletal: Reports back pain; Denies arthralgias Neurologic Neurologic: Denies dizziness, focal weakness or headache(s) Vital Signs Vital Signs Vital Signs: 03/29/23 13:45 03/29/23 13:57 03/29/23 13:56 Temperature 98.5 F 98.6 F Temperature Source Axillary Axillary Pulse Rate 94 94 Respiratory Rate 18 18 Blood Pressure 158/93 H 158/93 H Blood Pressure Mean 114 114 Pulse Ox 83 93 93 Oxygen Delivery Method Room Air Nasal Cannula Nasal Cannula Oxygen Flow Rate (L/min) 2 2 03/29/23 14:09 03/29/23 15:29 03/29/23 16:00 Temperature 97.9 F 98.0 F Temperature Source Temporal Temporal Pulse Rate 85 84 Respiratory Rate 18 19 H Blood Pressure 127/88 H 127/66 H Blood Pressure Mean 101 86 Pulse Ox 97 94 Oxygen Delivery Method Nasal Cannula Nasal Cannula Nasal Cannula Oxygen Flow Rate (L/min) 2 2 2 03/29/23 16:15 03/29/23 16:59 Temperature 98.0 F Temperature Source Pulse Rate 85 85 Respiratory Rate 18 Blood Pressure 121/84 H Blood Pressure Mean 96 Pulse Ox 92 Oxygen Delivery Method Oxygen Flow Rate (L/min) Weight Weight: 144.3 kg Body Mass Index (BMI) 68.6 Physical Exam Const alert Constitutional Narrative: Elderly female, chronically ill-appearing, appears older than stated age, sitting fairly comfortably in bed, no acute distress. Alert and answering most questions appropriately but does not appear completely oriented at this time. General Appearance: cooperative and comfortable HEENT normocephalic, head/scalp atraumatic, hearing grossly normal bilaterally, nasal mucous membranes and turbinates normal and moist oral mucous membranes Eyes PERRL, EOMs intact bilaterally and conjunctivae normal Neck full ROM, no lymphadenopathy and supple Lymph Lymphatic: no lymphadenopathy noted Chest inspection of chest normal Resp Resp Narrative: Moderately decreased breath sounds bilaterally with crackles noted in bases bilaterally. No wheezing noted. Patient satting in mid 90s on 4 L nasal cannula, no increased work of breathing noted. Cardio regular rate, regular rhythm, no murmurs and peripheral pulses 2+ throughout GI normal to inspection, nondistended, normoactive bowel sounds, soft to palpation,non-tender and non-distended Back/Spine normal ROM Extremity normal to inspection, full ROM and no pedal edema Skin no rashes or lesions noted Neuro moves all extremities and no focal motor deficits Results Lab / Micro Data 03/29/23 13:45 03/29/23 13:45 Labs: Laboratory Results - last 24 hr 03/29/23 13:45: WBC 17.3 H, RBC 4.14 L, Hgb 10.3 L, Hct 33.7 L, MCV 81.4, MCH 24.9 L, MCHC 30.6 L, RDW Std Deviation 51.5 H, RDW Coeff of Genaro 17.2 H, Plt Count 557 H, MPV 9.4, Immature Gran % (Auto) 0.600, Neut % (Auto) 75.0 H, Lymph % (Auto) 15.9 L, [place] % (Auto) 7.0, Eos % (Auto) 1.2, Baso % (Auto) 0.3, Absolute Neuts (auto) 12.9 H, Absolute Lymphs (auto) 2.74, Nucleated RBC % 0, PT15.2 H, INR 1.2, APTT 29.1, Sodium 141, Potassium 3.9, Chloride 109 H, Carbon Dioxide 27.0, Anion Gap 5, BUN 38 H, Creatinine 2.06 H, Estim Creat Clear Calc 60.37, Est GFR (MDRD) Af Amer 31 L, Est GFR (MDRD) Non-Af 26 L, BUN/Creatinine Ratio 18.4, Glucose 123 H, Lactic Acid 1.7, Calcium 8.2 L, Total Bilirubin 0.20,AST 9 L, ALT 11 L, Alkaline Phosphatase 94, Troponin I High Sens 7, B-Natriuretic Peptide 12.9, Total Protein 7.4, Albumin 2.9 L, Globulin 4.5 H, Albumin/Globulin Ratio 0.6 L 03/29/23 14:30: Urine Color Yellow, Urine Clarity Clear, Urine pH 5.0, Ur Specific [place] 1.025, Urine Protein 15 H, Urine Glucose (UA) Normal, Urine Ketones 5 H, Urine Occult Blood Negative, Urine Nitrite Negative, Urine Bilirubin 1 H, Urine Urobilinogen Normal, Ur Leukocyte Esterase 25 H, Urine RBC 0 SEEN, Urine WBC 0-5 SEEN, Ur Squamous Epith Cells 0-5 SEEN, Urine Bacteria 0 SEEN, Urine Mucus 0 SEEN Micro: Microbiology 03/29/23 15:14 Nasal Secretion SARS-CoV-2 & FLU Antigen (Rapid) - Final ABG Data ABG results: ABG 03/29/23 15:03 Specimen Type ART Sample Site L Brach pH 7.37 Bicarbonate Actual 22.9 Total CO2 24 Base Excess -2 O2 Saturation 94 L O2 % 3.0 ABG pCO2 39.3 ABG pO2 71 L Marcia Test N/A O2 Delivery Device Not entered Vent Mode Not entered Imagaing Radiology Impression Brain CT 03/29/23 14:09 IMPRESSION: There are no acute findings. Chronic involutional changes of the brain. Electronically Signed: Trev Balbuena MD at 15:37 EST , Chest X-Ray 03/29/23 15:03 IMPRESSION: Small bilateral pleural effusions. These findings appear worse. Electronically Signed: Trev Balbuena MD at 15:20 EST , Assessment & Plan Assessment/Plan (1) Chronic respiratory failure with hypoxia: (2) Acute alteration in mental status: (3) DANYEL (acute kidney injury): PLAN: Plan Patient is a 67-year-old female who presented to [facility] ED on 03/29/2023 with shortness of breath and altered mentation. 1. 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 Salgado with pulmonology, last office visit on 03/11. Has history of severe COPD/asthma overlap syndrome with chronic respiratory failure, wears supplemental oxygen at baseline. Has mildly worsened hypoxia from baseline, WBC count 17, per was on antibiotics for an upper respiratory tract infection over the last several days; suspect possibly viral respiratory illness causing mild exacerbation. Chest x-ray with small bilateralpleural effusions, mildly worsened from previous chest x-ray. ? Admit under inpatient status to PCU. Pulmonology consulted. Respiratory PCR panel, sputum culture, blood cultures ordered. Trend CBC. Scheduled DuoNebs for now. Will defer to pulmonology on need for systemic steroids or antibiotics. Continue home long-acting inhaler, Singulair, Mucinex as needed. 2. DANYEL Creatinine 2.06, BUN 38 on admit. Baseline creatinine appears to be around 0.8- 1.2. Suspect prerenal etiology in setting of poor p.o. intake due to suspected infection as noted above. ? Trend daily BMP. Urine sodium and creatinine ordered to calculate FeNa. Monitor urine output. Will hold on IV fluids for now given small pleural effusions noted on chest x-ray, but if DANYEL shown to be prerenal patient may needsome supplemental IV fluids versus increasing p.o. intake. 3. Debility, history of right BKA Patient has fairly significant debility at baseline, uses a walker around the home and a motorized scooter outside of the home. Lives with her who isher primary chain testing machine operator. ? PT/OT/case management consulted. Chronic medical conditions: ? RAUL: Continue home CPAP. ? CAD, hypertension, hyperlipidemia: Continue home Plavix, atorvastatin, Lopressor. Holding home Lasix given DANYEL as noted above. ? Hypothyroidism: Continue home Synthroid and liothyronine. ? Anxiety/depression: Continue home duloxetine, BuSpar, decreased Ativan dose twice daily as needed. DVT prophylaxis: Heparin subcu CODE STATUS: DNR CCA, DO NOT INTUBATE. Confirmed with patient and on admission. Expected disposition: TBD Total clinical time spent by myself addressing the patient's medical issues, reviewing all the data, and collaborating with patient's care team: 55 minutes. Charges/Coding Visit Charges Inpatient E&M: 78833 Init Hosp L2 03/30/23 0029 <Electronically signed by David Blackwell DO> Cosigner Signature (if applicable): CC: Dr. David Blackwell, ; Dr. Errol Michel DO~ Signed [facility] Work Phone: [phone]) 227-142212-03-2023 Discharge summary Author Damon Angel [facility] March 29, 2023 7:11pm Note Date/Time March 29, 2023 3 :42pm [facility] Medical Records Department [address] [place] [id number] Emergency Department Summary 03/29/23 MR#: [id number] Acct: [id number] Name: CODI BLANK Rep #:[id number] : 1955 67 From: Damon Angel MD PCP: Dr. Errol Michel, Status:ADM IN Location: [facility] [id number]- [id number] HPI <MELA Olsen - Last Filed: 03/29/23 17:26> History of Present Illness Chief Complaint: Alt LOC Narrative Narrative: Patient is a 67-year-old female who lives at home with her with history of chronic back pain, hypothyroidism, COPD, history of smoking, respiratory failure who presents to the emergency department for altered mental status, difficulty breathing. Patient was brought in by ambulance, patient's pulse oxygenation was 83% on arrival. Per the , the patient did not wake up this morning, so he woke her up secondary to her sleeping all day for the last 24 hours. He states that she is on antibiotics for upper respiratory tract infection. noticed that she was acting altered, this has happened in the past so he called the ambulance. Patient is alert and oriented x1, denies any fever or chills. [facility] <MELA Olsen - Last Filed: 03/29/23 17:26> [facility] Medical History Anxiety Asthma Chronic back pain Chronic respiratory failure with hypoxia COPD (chronic obstructive pulmonary disease) Depression Diverticulitis Fibromyalgia GERD (gastroesophageal reflux disease) Heart disease History of bronchitis History of heart attack History of pneumonia HTN (hypertension) Hypothyroidism Incisional hernia Nausea and vomiting RAUL (obstructive sleep apnea) Osteoarthritis Osteoporosis Sleep apnea Spinal stenosis spinal stimulator Thyroid disorder TIA (transient ischemic attack) Home Medications atorvastatin 80 mg tablet 80 mg PO QHS cholesterol 06/01/13 [History Last Taken 05/25/14 80 MG] clopidogrel 75 mg tablet 75 mg PO DAILY anti platelet 06/01/13 [History Last Taken 12/11/18] metoprolol tartrate 25 mg tablet 12.5 mg PO BID blood pressure 06/01/13 [History Last Taken 06/26/20 05:00] lorazepam 1 mg tablet (Ativan) 1 mg PO BID-TID PRN Anxiety 11/17/18 [History Last Taken Unknown] hydroxyzine HCl 50 mg tablet 50 mg PO QHS 12/01/18 [History Last Taken Unknown] duloxetine 60 mg capsule,delayed release 60 mg PO BID 06/19/20 [History Last Taken Unknown] buspirone 7.5 mg tablet 7.5 mg PO BID 06/03/22 [History Last Taken Unknown] diclofenac sodium 75 mg tablet,delayed release 75 mg PO BID 08/23/22 [History Last Taken Unknown] furosemide 40 mg tablet 60 mg PO DAILY 08/23/22 [History Last Taken Unknown] hydroxychloroquine 200 mg tablet 200 mg PO BID 08/23/22 [History Last Taken Unknown] levothyroxine 50 mcg tablet 50 mcg PO DAILY 08/23/22 [History Last Taken Unknown] liothyronine 5 mcg tablet 25 mcg PO DAILY 08/23/22 [History Last Taken Unknown] pregabalin 50 mg capsule 50 mg PO DAILY 08/23/22 [History Last Taken Unknown] topiramate 25 mg tablet 50 mg PO QHS 08/23/22 [History Last Taken Unknown] triamcinolone acetonide 0.1 % topical cream 1 applic topical BID 08/23/22 [History Last Taken Unknown] albuterol sulfate 90 mcg/actuation aerosol inhaler 1 - 2 puff inhalation Q6H PRNPRN COPD #2 device 03/11/23 [Rx Last Taken Unknown] guaifenesin 1,200 mg tablet, extended release 12 hr 1,200 mg PO Q12H #60 tabs 03/11/23 [Rx Last Taken Unknown] ipratropium 0.5 mg-albuterol 3 mg (2.5 mg base)/3 mL nebulization soln 3 ml inhalation Q4H PRN SOB #180 mL 03/11/23 [Rx Last Taken Unknown] mometasone-formoterol HFA 200 mcg-5 mcg/actuation aerosol inhaler (Dulera) 2 inhinhalation BID #3 ea 03/11/23 [Rx Last Taken Unknown] montelukast 10 mg tablet 10 mg PO QPM #90 tabs 03/11/23 [Rx Last Taken Unknown] nystatin 100,000 unit/mL oral suspension 5 ml mucous membrane TID #250 mL 03/11/23 [Rx Last Taken Unknown] tiotropium bromide 2.5 mcg/actuation mist for inhalation (Spiriva Respimat) 2 inh inhalation DAILY #3 ea 03/11/23 [Rx Last Taken Unknown] Allergy/AdvReac Type Severity Reaction Status Date / Time cefaclor [From [facility]] Allergy Itching Verified 03/11/23 10:11 clarithromycin Allergy Hives Verified 03/11/23 10:11 doxycycline Allergy Itching Verified 03/11/23 10:11 Penicillins Allergy Hives Verified 03/11/23 10:11 Sulfa (Sulfonamide Allergy Hives Verified 03/11/23 10:11 Antibiotics) biotin AdvReac Unknown Unknown Verified 03/11/23 10:11 zolpidem [From Ambien] AdvReac Unknown mental Verified 03/11/23 10:11 issues Family History Father Asthma Heart disease Grandmother Breast cancer Diabetes Mother Heart disease COPD (chronic obstructive pulmonary disease) Other Cancer Surgical History H/O heart artery stent History of esophagogastroduodenoscopy (EGD) (~07/2018) History of incisional hernia repair (~12/20/18) History of incisional hernia repair Hx of cholecystectomy Previous back surgery S/P carpal tunnel release S/P correction of deviated nasal septum S/P hysterectomy S/P knee surgery Status post amputation of right foot Status post thyroidectomy Social History Smoking Status: Former smoker Tobacco: How many years used: 25 second hand exposure: Yes alcohol intake: never substance use type: does not use caffeine: Yes what type of physical activity do you participate in: none frequency: does not exercise ROS <MELA Olsen - Last Filed: 03/29/23 17:26> ROS ED ROS Narrative Constitutional: Negative for fever, chills, weight loss. Positive for weakness Eyes: Negative for vision loss, vision change, double vision ENT: Negative for any sore throat, ear pain, congestion Cardiovascular: Negative for any chest pain, tightness, palpitations Respiratory: Negative for any hemoptysis.positive for dyspnea, dyspnea on exertion, orthopnea, positive for cough, sputum production Gastrointestinal: Negative for any abdominal pain, nausea, vomiting, diarrhea, constipation, blood in stool, blood in vomit : Negative for any urinary frequency, dysuria, retention, blood in urine Muscle skeletal: Negative for any myalgias, arthralgias, neck pain, back pain Neurological: Negative for any headache, syncope, numbness or tingling, dizziness. Positive for not acting like herself Skin: Negative for any rashes, lumps, itching, abrasions, lacerations Psychiatric: Negative for any depression, anxiety, stress, suicidal ideation, homicidal ideation Hematologic: Negative for any easy bruising, excessive bruising, easy bleeding Allergies: Negative for any eczema, hives, rash EXAM <MELA Olsen - Last Filed: 03/29/23 17:26> Physical Exam Narrative Exam Narrative: Vital signs reviewed. Patient is alert and x2 on examination. Patient is looking around the room. Per the , this is how she gets when she gets ill. HEET: Head normocephalic atraumatic, TMs clear bilaterally. Posterior pharynx is clear, dry mucous membranes. Nares clear bilaterally. Neck: Supple with no lymphadenopathy or tenderness. No signs of meningismus. Cardiac: Regular rate and rhythm no murmurs gallops or rubs, equal peripheral pulses bilaterally. Respiratory: diminished lung sounds to bilateral bases. No chest tenderness. Abdomen: Soft, nontender, nondistended. No abdominal bruit or pulsatile masses. No hepatosplenomegaly Extremities: No peripheral edema, no signs of gross trauma or deformity. Activefull range of motion of all extremities. Neuro: Cranial nerves II through XII intact, no focal neurological deficits. Skin: Clean dry and intact with no rash, purpura, petechiae, vesicles or pustules. Backs/flank: No CVA tenderness, no midline spinal tenderness, no deformity. Psych: Normal mood and affect. No SI, HI or acute psychosis. Const Vital Signs: 03/29/23 13:45 03/29/23 13:57 03/29/23 13:56 Temperature 98.5 F 98.6 F Temperature Source Axillary Axillary Pulse Rate 94 94 Respiratory Rate 18 18 Blood Pressure 158/93 H 158/93 H Blood Pressure Mean 114 114 Pulse Ox 83 93 93 Oxygen Delivery Method Room Air Nasal Cannula Nasal Cannula Oxygen Flow Rate (L/min) 2 2 03/29/23 14:09 03/29/23 15:29 03/29/23 16:00 Temperature 97.9 F 98.0 F Temperature Source Temporal Temporal Pulse Rate 85 84 Respiratory Rate 18 19 H Blood Pressure 127/88 H 127/66 H Blood Pressure Mean 101 86 Pulse Ox 97 94 Oxygen Delivery Method Nasal Cannula Nasal Cannula Nasal Cannula Oxygen Flow Rate (L/min) 2 2 2 03/29/23 16:15 03/29/23 16:59 Temperature 98.0 F Temperature Source Pulse Rate 85 85 Respiratory Rate 18 Blood Pressure 121/84 H Blood Pressure Mean 96 Pulse Ox 92 Oxygen Delivery Method Oxygen Flow Rate (L/min) Positive obese Nutritional Appearance: obese <Damon Angel MD - Last Filed: 03/29/23 19:11> Physical Exam Const Vital Signs: 03/29/23 13:45 03/29/23 13:57 03/29/23 13:56 Temperature 98.5 F 98.6 F Temperature Source Axillary Axillary Pulse Rate 94 94 Respiratory Rate 18 18 Blood Pressure 158/93 H 158/93 H Blood Pressure Mean 114 114 Pulse Ox 83 93 93 Oxygen Delivery Method Room Air Nasal Cannula Nasal Cannula Oxygen Flow Rate (L/min) 2 2 03/29/23 14:09 03/29/23 15:29 03/29/23 16:00 Temperature 97.9 F 98.0 F Temperature Source Temporal Temporal Pulse Rate 85 84 Respiratory Rate 18 19 H Blood Pressure 127/88 H 127/66 H Blood Pressure Mean 101 86 Pulse Ox 97 94 Oxygen Delivery Method Nasal Cannula Nasal Cannula Nasal Cannula Oxygen Flow Rate (L/min) 2 2 2 03/29/23 16:15 03/29/23 16:59 Temperature 98.0 F Temperature Source Pulse Rate 85 85 Respiratory Rate 18 Blood Pressure 121/84 H Blood Pressure Mean 96 Pulse Ox 92 Oxygen Delivery Method Oxygen Flow Rate (L/min) [facility] <MELA Olsen - Last Filed: 03/29/23 17:26> [facility] Lab Data Labs: Laboratory Results - last 24 hr 03/29/23 03/29/23 13:45 14:30 WBC 17.3 H RBC 4.14 L Hgb 10.3 L Hct 33.7 L MCV 81.4 MCH 24.9 L MCHC 30.6 L RDW Std Deviation 51.5 H RDW Coeff of Genaro 17.2 H Plt Count 557 H MPV 9.4 Immature Gran % (Auto) 0.600 Neut % (Auto) 75.0 H Lymph % (Auto) 15.9 L Imperial % (Auto) 7.0 Eos % (Auto) 1.2 Baso % (Auto) 0.3 Absolute Neuts (auto) 12.9 H Absolute Lymphs (auto) 2.74 Nucleated RBC % 0 PT 15.2 H INR 1.2 APTT 29.1 Sodium 141 Potassium 3.9 Chloride 109 H Carbon Dioxide 27.0 Anion Gap 5 BUN 38 H Creatinine 2.06 H Estim Creat Clear Calc 60.37 Est GFR (MDRD) Af Amer 31 L Est GFR (MDRD) Non-Af 26 L BUN/Creatinine Ratio 18.4 Glucose 123 H Lactic Acid 1.7 Calcium 8.2 L Total Bilirubin 0.20 AST 9 L ALT 11 L Alkaline Phosphatase 94 Troponin I High Sens 7 B-Natriuretic Peptide 12.9 Total Protein 7.4 Albumin 2.9 L Globulin 4.5 H Albumin/Globulin Ratio 0.6 L Urine Color Yellow Urine Clarity Clear Urine pH 5.0 Ur Specific [place] 1.025 Urine Protein 15 H Urine Glucose (UA) Normal Urine Ketones 5 H Urine Occult Blood Negative Urine Nitrite Negative Urine Bilirubin 1 H Urine Urobilinogen Normal Ur Leukocyte Esterase 25 H Urine RBC 0 SEEN Urine WBC 0-5 SEEN Ur Squamous Epith Cells 0-5 SEEN Urine Bacteria 0 SEEN Urine Mucus 0 SEEN Ur Random Sodium 23 Urine Creatinine 147.00 ABG Data ABG results: ABG 03/29/23 15:03 Specimen Type ART Sample Site L Brach pH 7.37 Bicarbonate Actual 22.9 Total CO2 24 Base Excess -2 O2 Saturation 94 L O2 % 3.0 ABG pCO2 39.3 ABG pO2 71 L Marcia Test N/A O2 Delivery Device Not entered Vent Mode Not entered Radiography Diagnostic Testing: Clinical Impression(s) from Imaging Studies Brain CT 03/29/23 14:09 IMPRESSION: There are no acute findings. Chronic involutional changes of the brain. Electronically Signed: Trev Balbuena MD at 15:37 EST , Chest X-Ray 03/29/23 15:03 IMPRESSION: Small bilateral pleural effusions. These findings appear worse. Electronically Signed: Trev Balbuena MD at 15:20 EST , Treatment and Re-Evaluation :: Patient arrives hypoxic, responding well to nasal cannula oxygen. Patient alert and oriented x2. Patient currently on antibiotics secondary to upper respiratory tract infection. Secondary the patient's hypoxia, altered mental status, patient did receive a full septic work-up with 2 sets of blood cultures,lactic acid. Differential diagnosis includes pneumonia, COVID-19, influenza, UTI, stroke. Patient will receive a CT scan of the brain. Patient's chest x-ray shows small bilateral pleural effusions these findings appear worse. Patient CT scan of the brain shows no acute findings. Patient troponin was negative. Lactic acid is 1.7. BNP will be added. Patient's CBC shows a leukocytosis of white blood count 17.3, PT/INR was unremarkable. Patient's patient's BMP does show acute kidney injury with a creatinine of 2.06, patient is usually between 0.8-1.3. proBNP was negative. Secondary to the patient's leukocytosis, pleural effusions, patient will be started on Levaquin concerning for any pneumonia. On reevaluation, the patient was sleeping, she is responding well to nasal cannula oxygen. Patient's blood gas did show a pH that was normal, patient's CO2 was unremarkable, PaO2 was 71 which is low, time, I do believe the patient will benefit from admission secondary to the altered mental status, leukocytosis, hypoxia. I will speak to the hospitalist <Damon Angel MD - Last Filed: 03/29/23 19:11> [facility] MDM Narrative Medical decision making narrative: Dr. Angel: I have personally performed a face to face assessment of the patient and have reviewed the ERA Note. I performed a substantive portion of the visit including all aspects of the following. My patterson findings include: History is mental status change, found to be hypoxic upon EMS arrival, history of wearing CPAP at night. Exam is afebrile. Vital signs noted regular rate and rhythm, lungs clear to auscultation bilaterally, abdomen soft nontender with normoactive bowel sounds. Medical Decision Making: Check head CT, check labs, check ABG. Given her mentalstatus change, although improving, cannot take care of her at home. Patient discussed with hospitalist for admission. Other additions or changes: [None] History & Record Review Discussion w/independent historian: Patient Additional record(s) reviewed:: Prior ED visit and Prior labs Lab Data Attestation: I reviewed the patient's lab results. Labs: Laboratory Results - last 24 hr 03/29/23 03/29/23 13:45 14:30 WBC 17.3 H RBC 4.14 L Hgb 10.3 L Hct 33.7 L MCV 81.4 MCH 24.9 L MCHC 30.6 L RDW Std Deviation 51.5 H RDW Coeff of Genaro 17.2 H Plt Count 557 H MPV 9.4 Immature Gran % (Auto) 0.600 Neut % (Auto) 75.0 H Lymph % (Auto) 15.9 L Imperial % (Auto) 7.0 Eos % (Auto) 1.2 Baso % (Auto) 0.3 Absolute Neuts (auto) 12.9 H Absolute Lymphs (auto) 2.74 Nucleated RBC % 0 PT 15.2 H INR 1.2 APTT 29.1 Sodium 141 Potassium 3.9 Chloride 109 H Carbon Dioxide 27.0 Anion Gap 5 BUN 38 H Creatinine 2.06 H Estim Creat Clear Calc 60.37 Est GFR (MDRD) Af Amer 31 L Est GFR (MDRD) Non-Af 26 L BUN/Creatinine Ratio 18.4 Glucose 123 H Lactic Acid 1.7 Calcium 8.2 L Total Bilirubin 0.20 AST 9 L ALT 11 L Alkaline Phosphatase 94 Troponin I High Sens 7 B-Natriuretic Peptide 12.9 Total Protein 7.4 Albumin 2.9 L Globulin 4.5 H Albumin/Globulin Ratio 0.6 L Urine Color Yellow Urine Clarity Clear Urine pH 5.0 Ur Specific [place] 1.025 Urine Protein 15 H Urine Glucose (UA) Normal Urine Ketones 5 H Urine Occult Blood Negative Urine Nitrite Negative Urine Bilirubin 1 H Urine Urobilinogen Normal Ur Leukocyte Esterase 25 H Urine RBC 0 SEEN Urine WBC 0-5 SEEN Ur Squamous Epith Cells 0-5 SEEN Urine Bacteria 0 SEEN Urine Mucus 0 SEEN Ur Random Sodium 23 Urine Creatinine 147.00 ABG Data ABG results: ABG 03/29/23 15:03 Specimen Type ART Sample Site L Brach pH 7.37 Bicarbonate Actual 22.9 Total CO2 24 Base Excess -2 O2 Saturation 94 L O2 % 3.0 ABG pCO2 39.3 ABG pO2 71 L Marcia Test N/A O2 Delivery Device Not entered Vent Mode Not entered Radiography Diagnostic Testing: Clinical Impression(s) from Imaging Studies Brain CT 03/29/23 14:09 IMPRESSION: There are no acute findings. Chronic involutional changes of the brain. Electronically Signed: Trev Balbuena MD at 15:37 EST , Chest X-Ray 03/29/23 15:03 IMPRESSION: Small bilateral pleural effusions. These findings appear worse. Electronically Signed: Trev Balbuena MD at 15:20 EST , Discharge Plan Dx/Rx/DC Orders Clinical Impression: Acute alteration in mental status, Hypoxemia, Acute kidney injury superimposed on chronic kidney disease Disposition Disposition: Acute Care Hospital [facility] Discharge Date/Time: 03/29/23 18:40 What to do if you have Problems For any increased pain, shortness of breath, bleeding, nausea or vomiting, chestpain, or any unexpected problems, contact your Primary Care Provider. Call [facility] ([phone]) or report to the closest Emergency Room. Call 911 if necessary. 03/29/23 191 <Electronically signed by Damon Angel MD> Cosigner Signature (if applicable): 03/29/23 172 <Electronically signed by Dre PLAZA> CC: Dr. Errol Michel, DO ~ Signed [facility] Work Phone: [phone]) 122-611211-07-2023 History of Present illness Narrative* Vanna Hendricks MD - 03/03/2023 8:00 AM EST SUBJECTIVE: This is 67 y.o. female with [...] 1 mg 3 times daily from from Errol Michel and ketamine + pregabalin 50 mg 3 times daily from hi OPIOID RISK ASSESSMENT SCORE 06/22 Work/Pending law [...] importance of compliance with chosen treatment options, risk- factor reduction, and patient/family education. Pool therapy, walking [...] contact me to clarify. Vanna Hendricks MD * Rubin Dumont RN - 03/03/2023 8:00 AM EST This is 67 y.o. female with who has been treated for Lower back pain. Pain is better, The pain is described as achiness and is relieved by IV infusions .Here for follow-up . Patient states that she gets great relief from the IV infusion therapy she gets about 100% pain relief for about 2 weeks thenthe pain slowly returns. Patient feeling down she fractured her ankle left ankle a month ago. She states that it is giving her flashbacks previous experience with her other ankle. Chief Complaint Patient presents with Follow-up Back Pain Pain Therapies: iv infusions Opioid Risk Assessment Score 05/22 documented in this [facility] Work Phone: 1(492) 398-651609-08-2023 Procedure [facility] 11-28-2022 NoteHNO ID: [id number] Author: Paula Moss MD Service: General Internal [...] 82011/26/222016 -- 11/26/222029 activity - [place]ize [place] ([place]) VTE Prophylaxis: VTE prophylaxis appropriate SIGNATURE: Paula Moss MD [id number] NoteHNO ID: [id number] Author: Ashwin Butler RPh Service: Pharmacy Author Type: Pharmacist Type: Plan of Care Filed: 11/27/2022 3:43 PM Note Text: PHARMACY MEDICATION REVIEW Patient Name: Codi Blank : 1955 The following medications were updated within the [facility] medication list: Medications ADDED to [facility] medication list Furosemide 40 mg every other day Albuterol inhaler 1-2 puffs q6h PRN Lorazepam 1 mg TID PRN Pregabalin 50 mg TID Fluconazole 200 mg once weekly Medications CHANGED on [employer] medication list Buspirone 10 mg BID, changed to BID PRN Duloxetine 30 mg TID, changed to 60 mg BID Hydroxyzine 50 mg TID PRN, changed to daily Levothyroxine 100 mcg daily, changed to 50 mcg daily Liothyronine 5 mcg daily, changed to 10 mcg daily Quetiapine 50 mg daily, changed to 200 mg daily Medications REMOVED from [employer] medication list Abaloparatide 80 mcg Atorvastatin 80 [...] Most recent script for furosemide [facility]. [facility] pharmacist reported furosemide [...] RPh Source of history: Pharmacy records: [facility] and [facility] records Medication nonadherence identified: Patient does not know her medications by name and cannot recall dose or frequency Reconciliation completed: Yes Completed by: Patricia Andrade Rph All [employer] medications addressed by JOSE - janny Moss to review med rec again Patient interested in Bedside Delivery Services or using [facility] OP Pharmacy at discharge? Unable to assess Preferred outpatient pharmacy: e- [facility] [address] [place] [address] [address] [facility] [phone] [address] [facility] [place] [address] [address] [facility] [phone] Allergies: Adhesive Tape (Madisyn* Comment:REDNESS Biaxin [Clarithromy* [...] mg tablet Yes No (more content not included)...[id number] Leon [facility] August 23, 2022 7:40pm Note Date/Time August 23, 2022 4:4 1pm [facility] Medical Records Department [address] [place] [address] Emergency Department Summary 08/23/22 MR#: [id number] Acct: [id number] Name: CODI BLANK Rep #:[id number] : 1955 67 From: Reece Leon MD PCP: Dr. Errol Michel, DO Status:REG ER Location: ED HPI History of Present Illness Chief Complaint: Shortness of Breath Informant: patient and EMS Narrative Narrative: Patient states she has had increased shortness of breath compared to baseline with regards to her asthma and COPD for the past month, since I have had these cold symptoms. No fevers or chills. Minimal sputum production with cough. She states that she had a phone conversation with the nurse practitioner in her pulmonary office in the past 4 weeks and separately, was prescribed prednisone and antibiotics and none of it helped. Today she is much more short of breaththan she had been, she states it is worse with any little movement. She denies orthopnea. She has edema in her legs that is new, that has been present for thepast 4 weeks as well. She has a history of CAD with 5 stents in the past. She has had constant chest tightness in the past month. She was using her albuterolrescue inhaler and it was helping some but not today. [facility] Medical History Anxiety Asthma Chronic back pain COPD (chronic obstructive pulmonary disease) Depression Diverticulitis Fibromyalgia GERD (gastroesophageal reflux disease) Heart disease History of bronchitis History of heart attack History of pneumonia HTN (hypertension) Hypothyroidism Incisional hernia Nausea and vomiting Osteoarthritis Osteoporosis Sleep apnea Spinal stenosis spinal stimulator Thyroid disorder TIA (transient ischemic attack) Home Medications atorvastatin 80 mg tablet 80 mg PO QHS cholesterol 06/01/13 [History Last Taken 05/25/14 80 MG] clopidogrel 75 mg tablet 75 mg PO DAILY anti platelet 06/01/13 [History Last Taken 12/11/18] metoprolol tartrate 25 mg tablet 12.5 mg PO BID blood pressure 06/01/13 [History Last Taken 06/26/20 05:00] lorazepam 1 mg tablet (Ativan) 1 mg PO BID-TID PRN Anxiety 11/17/18 [History Last Taken Unknown] hydroxyzine HCl 50 mg tablet 50 mg PO QHS 12/01/18 [History Last Taken Unknown] duloxetine 60 mg capsule,delayed release 60 mg PO BID 06/19/20 [History Last Taken Unknown] albuterol sulfate 90 mcg/actuation aerosol inhaler 1 - 2 puff inhalation Q6H PRNPRN COPD #2 device 06/03/22 [Rx Last Taken Unknown] buspirone 7.5 mg tablet 7.5 mg PO BID 06/03/22 [History Last Taken Unknown] montelukast 10 mg tablet 10 mg PO QPM #90 tabs 06/03/22 [Rx Last Taken Unknown] diclofenac sodium 75 mg tablet,delayed release 75 mg PO BID 08/23/22 [History Last Taken Unknown] furosemide 40 mg tablet 60 mg PO DAILY 08/23/22 [History Last Taken Unknown] hydroxychloroquine 200 mg tablet 200 mg PO BID 08/23/22 [History Last Taken Unknown] ipratropium 0.5 mg-albuterol 3 mg (2.5 mg base)/3 mL nebulization soln 3 ml inhalation Q4H PRN SOB 08/23/22 [History Last Taken Unknown] levothyroxine 50 mcg tablet 50 mcg PO DAILY 08/23/22 [History Last Taken Unknown] liothyronine 5 mcg tablet 25 mcg PO DAILY 08/23/22 [History Last Taken Unknown] pregabalin 50 mg capsule 50 mg PO DAILY 08/23/22 [History Last Taken Unknown] tiotropium bromide 2.5 mcg/actuation mist for inhalation (Spiriva Respimat) 2 inh inhalation DAILY 08/23/22 [History Last Taken Unknown] topiramate 25 mg tablet 50 mg PO QHS 08/23/22 [History Last Taken Unknown] triamcinolone acetonide 0.1 % topical cream 1 applic topical BID 08/23/22 [History Last Taken Unknown] Allergy/AdvReac Type Severity Reaction Status Date / Time cefaclor [From Ceclor] Allergy Itching Verified 08/23/22 16:28 clarithromycin Allergy Hives Verified 08/23/22 16:28 doxycycline Allergy Itching Verified 08/23/22 16:28 Penicillins Allergy Hives Verified 08/23/22 16:28 Sulfa (Sulfonamide Allergy Hives Verified 08/23/22 16:28 Antibiotics) biotin AdvReac Unknown Unknown Verified 08/23/22 16:28 zolpidem [From Ambien] AdvReac Unknown mental Verified 08/23/22 16:28 issues Family History (Reviewed 06/03/22 @ 09:25 by Bonita Acevedo TALENT DEVELOPMENT CONSULTANT, TALENT DEVELOPMENT CONSULTANT-C) Father Asthma Heart disease Grandmother Breast cancer Diabetes Mother Heart disease COPD (chronic obstructive pulmonary disease) Other Cancer Surgical History (Reviewed 06/03/22 @ 09:25 by Bonita Acevedo TALENT DEVELOPMENT CONSULTANT, TALENT DEVELOPMENT CONSULTANT-C) H/O heart artery stent History of esophagogastroduodenoscopy (EGD) (~07/2018) History of incisional hernia repair (~12/20/18) History of incisional hernia repair Hx of cholecystectomy Previous back surgery S/P carpal tunnel release S/P correction of deviated nasal septum S/P hysterectomy S/P knee surgery Status post amputation of right foot Status post thyroidectomy Social History Smoking Status: Former smoker second hand exposure: Yes alcohol intake: never substance use type: does not use caffeine: Yes what type of physical activity do you participate in: none frequency: does not exercise ROS ROS ED Constitutional Constitutional ED: Denies chills or fever(s) Eyes Eyes: Denies change in vision or diplopia ENT ENT ED: Denies rhinorrhea or sore throat Cardiovascular Cardiovascular: Reports chest pain and leg edema; Denies orthopnea or palpitations Respiratory/Chest Respiratory/Chest: Reports dyspnea, dyspnea on exertion and sputum; Denies coughor orthopnea Gastrointestinal Gastrointestinal: Denies abdominal pain, diarrhea, nausea or vomiting Genitourinary Genitourinary ED: Denies dysuria or hematuria Musculoskeletal Musculoskeletal: Denies back pain or neck pain Integumentary Denies abscess or rash Neurologic Neurologic: Denies headache(s), paresthesias or weakness Psychiatric Psychiatric: Denies depression or suicidal thoughts EXAM Physical Exam Const Vital Signs: 08/23/22 16:22 08/23/22 16:37 08/23/22 16:53 Temperature 97.3 F L Temperature Source Temporal Pulse Rate 106 H 100 Respiratory Rate 32 H 24 H Respiratory Effort Normal Respiratory Depth Normal Respiratory Pattern Normal Blood Pressure 152/63 H Blood Pressure Mean 92 Pulse Ox 78 Oxygen Delivery Method Room Air Room Air Oxygen Flow Rate (L/min) 08/23/22 17:12 08/23/22 17:12 08/23/22 17:37 Temperature 97.5 F L Temperature Source Temporal Pulse Rate 102 H 102 H 95 Respiratory Rate 24 H 24 H 18 Respiratory Effort Respiratory Depth Respiratory Pattern Blood Pressure 111/56 L 111/56 L 118/92 H Blood Pressure Mean 74 74 100 Pulse Ox 93 93 95 Oxygen Delivery Method Nasal Cannula Nasal Cannula Nasal Cannula Oxygen Flow Rate (L/min) 5 5 5 08/23/22 18:07 08/23/22 18:08 08/23/22 18:20 Temperature Temperature Source Pulse Rate 94 Respiratory Rate 11 L Respiratory Effort Respiratory Depth Respiratory Pattern Blood Pressure Blood Pressure Mean Pulse Ox 88 91 Oxygen Delivery Method Room Air Nasal Cannula Oxygen Flow Rate (L/min) 2 08/23/22 18:37 08/23/22 18:33 08/23/22 19:05 Temperature Temperature Source Pulse Rate 95 Respiratory Rate 18 Respiratory Effort Respiratory Depth Respiratory Pattern Blood Pressure 90/68 Blood Pressure Mean 75 Pulse Ox 90 85 88 Oxygen Delivery Method Nasal Cannula Room Air Nasal Cannula Oxygen Flow Rate (L/min) 3 3 08/23/22 19:05 08/23/22 19:11 Temperature 97.9 F Temperature Source Oral Pulse Rate 96 Respiratory Rate 18 Respiratory Effort Respiratory Depth Respiratory Pattern Blood Pressure 185/173 H Blood Pressure Mean 177 Pulse Ox 91 91 Oxygen Delivery Method Nasal Cannula Nasal Cannula Oxygen Flow Rate (L/min) 4 4 Positive well nourished, well developed and obese General Appearance ED: well developed and NAD Nutritional Appearance: obese HEENT Reports moist mucous membranes normocephalic and atraumatic Eyes PERRL and EOMs intact bilaterally Neck full ROM, supple and no JVD Resp normal respiratory effort Resp Narrative: Bibasilar Rales. Few inspiratory wheezes throughout all prasad. Symmetric breath sounds, diminished throughout. Effort and Inspection: able to speak in complete sentences Cardio regular rate and regular rhythm Cardio Narrative: Faint heart sounds. GI non-tender and non-distended Auscultation: normoactive bowel sounds Palpation: soft Back/Spine no CVA tenderness General Back: other FROM Extremity normal to inspection Extremity Narrative: Status post right BKA. Left lower extremity is significantly edematous with pitting edema up to the knee, no signs of cellulitis or tenderness. General Extremety ED: Yes edema; Negative for pulses abnormal or tenderness General Extremity: edema; Negative for pulses abnormal Neuro oriented x3, CN's II-XII intact bilaterally and no sensory deficits noted Sensorium / Orientation: awake and alert Motor Exam: strength 5/5 throughout Psych mental status grossly normal Skin no rashes or lesions noted and no wounds MDM MDM MDM Narrative Medical decision making narrative: Acute congestive heart failure was considered. In working the patient up, chestx-ray shows bibasilar atelectasis but no convincing evidence of acute CHF, 2 views on my interpretation. Radiology in agreement. Her BNP is low, 23.5, wellwithin normal limits, and her high-sensitivity troponin is normal at 10. Her EKG shows nothing acute, there are some chronic repolarization abnormalities that are unchanged. The rest of her labs are noted, including her elevated creatinine compared with baseline. All of this argues against acute CHF. In addition, supporting pulmonary etiology, she is much better after a duo nebulizer treatment and she declines offer for more aerosols. I do suspect thisis her COPD/asthma, differential includes viral infection and exacerbation due to weather changes. On further questioning to the patient, the edema in her legs is not new; it is however worse in the past several weeks than usual. She is on Lasix 60 mg daily and states she has been on that for years because of theleg edema. I reviewed her prior echocardiogram from about 3 to 4 years ago, it showed mild diffuse LVH without evidence of congestive heart failure. She does not have a prosthetic for her right lower extremity, and she is in an electric wheelchair most of the time at home. Therefore we are not able to ambulate her in order to check for hypoxemia with ambulation. We took her off of the oxygen nasal cannula in the emergency department. She quickly desatted down to 88% before nurses placed her back on the nasal cannula. I ordered Solu-Medrol IV and had 2 more albuterol treatments performed and again checked the patient off of her oxygen. When the breathing treatments were finished, she quickly desatted down to 83% on room air, she was placed back on 3 L nasal cannula, and she equilibrated in the 86-88% range. I turned her up to 4 L and this kept her 90-92%. She sounds more wheezy than initially after the treatments, suggesting to me that initially she was pretty tight and now she is opening up some. She states these further helped her dyspnea. I think this is inconsistent with pulmonary embolus, although her DANYEL prevents safely performing CT angiography right now. Since she only wears oxygen at night, she may further desat when sleeping, plan is for inpatient further eval/tx. After discussing with hospitalist, patient dropped her oxygen saturations down into the 70s with good waveform while on the 4 L nasal cannula. Nursing put lidia a nonrebreather but she was still in the low 80s. Therefore respiratory put her on BiPAP emergently, she is now 92% and states she is breathing better, tolerating it well. We will upgrade her admission to PCU. History & Record Review Additional record(s) reviewed:: Prior outpatient record (Echocardiogram) and Prior labs Lab Data Attestation: I reviewed the patient's lab results. Labs: Laboratory Results - last 24 hr 08/23/22 08/23/22 08/23/22 16:30 16:30 16:30 WBC 9.0 RBC 3.98 L Hgb 10.6 L Hct 34.3 L MCV 86.2 MCH 26.6 L MCHC 30.9 L RDW Std Deviation 49.2 H RDW Coeff of Genaro 15.8 H Plt Count 360 MPV 9.7 Immature Gran % (Auto) 0.400 Neut % (Auto) 57.7 Lymph % (Auto) 27.4 Imperial % (Auto) 11.5 H Eos % (Auto) 2.3 Baso % (Auto) 0.7 Absolute Neuts (auto) 5.2 Absolute Lymphs (auto) 2.45 Nucleated RBC % 0 Sodium 140 Potassium 3.3 L Chloride 103 Carbon Dioxide 31.0 Anion Gap 6 BUN 28 H Creatinine 1.97 H Estim Creat Clear Calc 32.33 Est GFR (MDRD) Af Amer 33 L Est GFR (MDRD) Non-Af 27 L BUN/Creatinine Ratio 14.2 Glucose 144 H Calcium 8.8 Troponin I High Sens 10 B-Natriuretic Peptide 23.5 Radiography Diagnostic Testing: Clinical Impression(s) from Imaging Studies Chest X-Ray 08/23/22 17:05 IMPRESSION: Poor inspiration with some bibasilar atelectasis. Electronically Signed: Mitch Aguilera MD at 17:49 EDT , Rhythm Strip Rhythm Strip: Sinus Tach Rate: 105 Ectopy: None EKG Initial EKG: Attestation: I personally reviewed and interpreted this EKG as follows: Interpretation: Sinus Rhythm, No Acute Injury Pattern and Non-Specific ST Changes (limited eval due to artifact from spinal stimulator) Prior EKG tracings: available for review (2019) Prior: Unchanged Critical Care Time Critical Care Time: Yes Critical care time (excluding procedures): 30-74 minutes (35 min), Including time spent:, Discussing w/Patient &/or Family/Admission Nurse Coordinator, Discussing w/Consultants, Arranging Admission or Transfer and Performing Direct Patient Care at Bedside Discharge Plan Dx/Rx/DC Orders Clinical Impression: Acute exacerbation of chronic obstructive pulmonary disease (COPD), DANYEL (acute kidney injury), Hypoxemia, Acute respiratory failure with hypoxia Disposition Disposition: Acute Care Hospital [facility] What to do if you have Problems For any increased pain, shortness of breath, bleeding, nausea or vomiting, chestpain, or any unexpected problems, contact your Primary Care Provider. Call [facility] ([phone]) or report to the closest Emergency Room. Call 911 if necessary. 08/23/221939 <Electronically signed by Reece Leon MD> Cosigner Signature (if applicable): CC: Dr. Errol Michel, DO ~ Signed [facility] Work Phone: 1(411) 347-622010-03-2022 NotePre-procedure Verification and Time Out: Pre-Procedure Verification and Time Out: Procedure Locationprocedure area HUDDLE - Pre-procedure Verificationcompleted TIME OUT - Final Verificationcompleted immediately prior to procedure start DEBRIEFcompleted General Information: Anesthesia Critical Care: Non-Anesthesia Date/Time of Procedure: 27-Jan-2022 08:22 Post-Procedure Diagnosis: Same Procedure Name: Lumbar radiculopathy, lumbar postlaminectomy syndrome Findings: grossly normal anatomy Procedure performed by: Sofa Back Upholsterer(s): none Estimated Blood Loss (mL): none Specimen: [...] Completion Last Updated: 27-Jan-2022 08:23 by Vanna Hendricks)[facility] 04-30-2021 History of Present illness Narrative* I have personally reviewed the OARRS report for CODI BLANK. I have considered the risks of abuse, dependence, addiction and diversion. * I have the following concerns: 04/30/21. * SUBJECTIVE: * This is 65 year year old female. This is a virtual visit with Codi who is really doing great with her IV infusion therapy. The patient had tried in the past physical therapy and companion caregiver and because of her wheelchair dependency physical therapy did not help her much and she is not really i nterested in companion caregiver. At least we are giving her great pain relief with the IV infusion therapy at this time. The patient already scheduled for her further appointment. No refill needed today. The patient went to [facility] companion caregiver and they told her they can do [...] able to function and play with her fpzdm-mmwnpfkw-akry-old she put him on her wheelchair and [...] the IV infusion therapy in combination with [facility] integrative program and evaluation by Dr. [...] since June 2020, phentermine 37.5 mg from Errolnavneet Michel * OPIOID RISK ASSESSMENT SCORE 06/22 [...] 30 minutes. * Continue IV infusion therapy * Continue neuropathic supplements * Reinforced importance of regular program of [...] to clarify. [facility] Work Phone: [phone] 134-298210-28-2021 History of Present illness Narrative* OPIOID * [...] able to function and play with her itndi-sykkigkd-vljo-old she put him on her wheelchair and [...] the IV infusion therapy in combination with [facility] integrative program and evaluation by Dr. [...] since June 2020, phentermine 37.5 mg from Errol Malys * OPIOID RISK ASSESSMENT SCORE 06/22 * [...] options, risk-factor reduction, and patient/family education. * Continue IV infusion therapy * Ketamine nasal spray sent to compounding pharmacy * Reinforced importance of regular program of [...] to clarify. [facility] Work Phone: consult note Author David Castillo [facility] March 30, 2023 3:55pm Note Date/Time March 30, 2023 3 :55pm [facility] Medical Records Department [address] [place] [address] Counseling Note - Pharmacy 03/30/23 1554 MR#: [id number] Acct: [id number] Name: CODI BLANK Rep #:[id number] : 1955 67 From: David Castillo PCP: Dr. Errol Michel, DO Status:ADM IN Y Location: [id number]- [id number] Pharmacy [facility] Pharmacy Service has performed discharge medication reconciliation and counseling for this patient. The patient's discharge medication list was reviewed for discrepancies and discrepancies were resolved. The patient was counseled on the following discharge medications and changes in medications for homegoing were reviewed. The Reason for Use, instructions for use, and potential side effects were reviewed for all new medications. The patient's questions regarding all of their medications were answered. 1. Prednisone 40 mg PO daily x 5 days The patient was able to verbally demonstrate an understanding of their dischargemedications. Medications at Discharge Home Medications atorvastatin 80 mg tablet 80 mg PO QHS cholesterol 06/01/13 clopidogrel 75 mg tablet 75 mg PO DAILY anti platelet 06/01/13 metoprolol tartrate 25 mg tablet 12.5 mg PO BID blood pressure 06/01/13 lorazepam 1 mg tablet (Ativan) 1 mg PO BID-TID PRN Anxiety 11/17/18 hydroxyzine HCl 50 mg tablet 50 mg PO QHS 12/01/18 duloxetine 60 mg capsule,delayed release 60 mg PO BID 06/19/20 buspirone 7.5 mg tablet 7.5 mg PO BID 06/03/22 diclofenac sodium 75 mg tablet,delayed release 75 mg PO BID 08/23/22 furosemide 40 mg tablet 60 mg PO DAILY 08/23/22 hydroxychloroquine 200 mg tablet 200 mg PO BID 08/23/22 levothyroxine 50 mcg tablet 50 mcg PO DAILY 08/23/22 liothyronine 5 mcg tablet 25 mcg PO DAILY 08/23/22 pregabalin 50 mg capsule 50 mg PO DAILY 08/23/22 topiramate 25 mg tablet 50 mg PO QHS 08/23/22 triamcinolone acetonide 0.1 % topical cream 1 applic topical BID 08/23/22 albuterol sulfate 90 mcg/actuation aerosol inhaler 1 - 2 puff inhalation Q6H PRNPRN COPD #2 device 03/11/23 guaifenesin 1,200 mg tablet, extended release 12 hr 1,200 mg PO Q12H #60 tabs 03/11/23 ipratropium 0.5 mg-albuterol 3 mg (2.5 mg base)/3 mL nebulization soln 3 ml inhalation Q4H PRN SOB #180 mL 03/11/23 mometasone-formoterol HFA 200 mcg-5 mcg/actuation aerosol inhaler (Dulera) 2 inhinhalation BID #3 ea 03/11/23 montelukast 10 mg tablet 10 mg PO QPM #90 tabs 03/11/23 nystatin 100,000 unit/mL oral suspension 5 ml mucous membrane TID #250 mL 03/11/23 tiotropium bromide 2.5 mcg/actuation mist for inhalation (Spiriva Respimat) 2 inh inhalation DAILY #3 ea 03/11/23 prednisone 20 mg tablet 40 mg (2 x 20 mg) PO DAILY #10 tabs 03/30/23 03/30/23 2215 <Electronically signed by David becker> Date _ David Corona Signature (if applicable): Date CC: ~ Signed [facility] Work Phone: Consult note Author Batsheva Eisenberg [facility] May 06, 2023 12:19pm Note Date/Time May 06, 2023 1 2:19pm [facility] Medical Records Department [address] [place] [address] Counseling Note - Pharmacy 05/06/23 1219 MR#: [id number] Acct: [id number] Name: CODI BLANK Rep #:[id number] : 1955 67 From: Batsheva Eisenberg PCP: Dr. Errol Michel, DO Status:ADM IN Y Location: [place] [address] Pharmacy [place] [facility]con[facility] Pharmacy Service has performed discharge medication reconciliation for this patient. Patient has been on both medications in the past. Did not residential counselor. The patient's discharge medication list was reviewed for discrepancies and discrepancies were resolved. Medications at Discharge Home Medications atorvastatin 80 mg tablet 80 mg PO QHS cholesterol 06/01/13 clopidogrel 75 mg tablet 75 mg PO DAILY anti platelet 06/01/13 metoprolol tartrate 25 mg tablet 12.5 mg PO BID blood pressure 06/01/13 lorazepam 1 mg tablet (Ativan) 1 mg PO BID-TID PRN Anxiety 11/17/18 hydroxyzine HCl 50 mg tablet 50 mg PO QHS 12/01/18 duloxetine 60 mg capsule,delayed release 60 mg PO BID 06/19/20 buspirone 7.5 mg tablet 7.5 mg PO BID 06/03/22 furosemide 40 mg tablet 60 mg PO DAILY 08/23/22 hydroxychloroquine 200 mg tablet 200 mg PO BID 08/23/22 levothyroxine 50 mcg tablet 50 mcg PO DAILY 08/23/22 liothyronine 5 mcg tablet 25 mcg PO DAILY 08/23/22 pregabalin 50 mg capsule 50 mg PO DAILY 08/23/22 topiramate 25 mg tablet 50 mg PO QHS 08/23/22 triamcinolone acetonide 0.1 % topical cream 1 applic topical BID 08/23/22 albuterol sulfate 90 mcg/actuation aerosol inhaler 1 - 2 puff inhalation Q6H PRNPRN COPD #2 device 03/11/23 guaifenesin 1,200 mg tablet, extended release 12 hr 1,200 mg PO Q12H #60 tabs 03/11/23 ipratropium 0.5 mg-albuterol 3 mg (2.5 mg base)/3 mL nebulization soln 3 ml inhalation Q4H PRN SOB #180 mL 03/11/23 mometasone-formoterol HFA 200 mcg-5 mcg/actuation aerosol inhaler (Dulera) 2 inhinhalation BID #3 ea 03/11/23 montelukast 10 mg tablet 10 mg PO QPM #90 tabs 03/11/23 nystatin 100,000 unit/mL oral suspension 5 ml mucous membrane TID #250 mL 03/11/23 tiotropium bromide 2.5 mcg/actuation mist for inhalation (Spiriva Respimat) 2 inh inhalation DAILY #3 ea 03/11/23 pantoprazole 40 mg tablet,delayed release 40 mg PO BID 30 days #60 tabs 05/06/23 prednisone 20 mg tablet 40 mg (2 x 20 mg) PO BREAKFAST 2 days #4 tabs 05/06/23 05/06/23 1219 <Electronically signed by Batsheva Eisenberg> Date _ Batsheva Eisenberg Cosigner Signature (if applicable): Date CC: ~ Signed [facility] Work Phone: Discharge summary Author Le Alba [facility] March 30, 2023 3:44pm Note Date/Time March 30, 2023 3 :44pm [facility] Medical Records Department [address] [place] [address] Instructions for Home/Discharge Instructions 03/30/23 1544 MR#: [id number] Acct: [id number] Name: CODI BLANK Rep #:[id number] : 1955 67 From: Le Alba MD PCP: Dr. Errol Michel, DO Status:ADM IN Discharge Instructions Diet Discharge Diet: Low fat / Low cholesterol Activity Discharge Activity: Return to Normal Activity Weight Bearing Status: Weight bearing as tolerated Dressing / Incision Call your doctor if you observe: Fever of 101 or Higher, Shortness of breath, Dizziness, Swelling in the ankles, Chest pain and Increased palpitations (irregular heartbeat) Follow Up Care Test Results: Test results from this visit will be discussed in further detail at your follow- up appointment, if applicable. Discharge Plan Admission Admit Date/Time: 03/29/23 17:35 Primary Reason for Your Visit: COPD exacerbation Attending Provider: Le Alba Primary Care Provider: Errol Michel Consulting Providers: David Blackwell; Henry Page; Caesar Salgado; Dorothy Tenorio; Sebastian Rich; Bonita Acevedo TALENT DEVELOPMENT CONSULTANT Instructions Patient Instructions: COPD Meds, Chronic Lung Disease Aerobic Discharge Orders/Prescriptions Prescriptions: New prednisone 20 mg tablet 40 mg PO DAILY Qty: 10 0RF Continued lorazepam [Ativan] 1 mg tablet 1 mg PO BID-TID PRN (Reason: Anxiety) hydroxyzine HCl 50 mg tablet 50 mg PO QHS buspirone 7.5 mg tablet 7.5 mg PO BID albuterol sulfate 90 mcg/actuation HFA aerosol inhaler 1 - 2 puff INHALATION Q6H PRN PRN (Reason: COPD) Qty: 2 6RF ipratropium-albuterol 0.5 mg-3 mg(2.5 mg base)/3 mL solution for nebulization 3 ml INHALATION Q4H PRN (Reason: SOB) Qty: 180 3RF Dulera 200-5 mcg/actuation HFA aerosol inhaler 2 inh inhalation BID Qty: 3 3RF montelukast 10 mg tablet 10 mg PO QPM Qty: 90 3RF Spiriva Respimat 2.5 mcg/actuation mist 2 inh INHALATION DAILY Qty: 3 3RF nystatin 100,000 unit/mL suspension 5 ml mucous membrane TID Qty: 250 1RF Rx Instructions: swish and swallow 5 cc three times per day for 10 days guaifenesin 1,200 mg tablet extended release 12hr 1,200 mg PO Q12H Qty: 60 6RF clopidogrel 75 MG tablet 75 mg PO DAILY Patient Comments: STOPPED FRO SURGERY, DR INSTRUCTIONS atorvastatin 80 MG tablet 80 mg PO QHS metoprolol tartrate 25 MG tablet 12.5 mg PO BID duloxetine 60 MG capsule 60 mg PO BID furosemide 40 mg Tablet 60 mg PO DAILY topiramate 25 mg tablet 50 mg PO QHS liothyronine 5 mcg tablet 25 mcg PO DAILY triamcinolone acetonide 0.1 % cream 1 applic TOPICAL BID levothyroxine 50 mcg tablet 50 mcg PO DAILY diclofenac sodium 75 mg tablet,delayed release (DR/EC) 75 mg PO BID hydroxychloroquine 200 mg tablet 200 mg PO BID Patient Comments: TAKE 1 TABLET BY MOUTH TWICE DAILY pregabalin 50 mg capsule 50 mg PO DAILY Referrals / Follow Up: Errol Michel DO [Primary Care Provider] - Within 1 Week Disposition Disposition (needs filled in before D/C Order can be placed): Home, Self Care 03/30/23 2436<Electronically signed by Le Alba MD>Le Alba MD CC: MELA Acevedo; Dr. David Blackwell DO; Dr. Henry Page MD; Dr. Caesar Salgado DO; Dr. Dorothy Tenorio MD; Dr. Errlo Michel DO; Dr. Sebastian Rich MD ~ Signed [facility] Work Phone: evaluation noteNo assessment information available [facility] Work Phone: evaluation note* Diagnosis Onset Date Resolution Status Bronchiectasis chronic COPD (chronic obstructive pulmonary disease) chronic RAUL (obstructive sleep apnea) chronic Smoking greater than 20 pack years [facility] Work Phone: Evaluation note* Diagnosis Onset Date Resolution Status Bronchiectasis chronic COPD (chronic obstructive pulmonary disease) chronic RAUL (obstructive sleep apnea) chronic Smoking greater than 20 pack years chronic Acute respiratory failure with hypoxia acute DANYEL (acute kidney injury) [place] Hypoxemia acute Acute exacerbation of chroni c obstructive pulmonary disease (COPD) chronic RAUL (obstructive sleep apnea) [facility] Work Phone: Evaluation note* Diagnosis Onset Date Resolution Status Hypoxemia acute Chronic respiratory failure with hypoxia chronic Acute exacerbation of chroni c obstructive pulmonary disease (COPD) resolved Acute respiratory failure with hypoxia resolved DANYEL (acute kidney injury) re solved Hypokalemia resolved Hyponatremia resolved Toxic metabolic encephalopathy resolved Asthma acute Sleep apnea acute Chronic respiratory failure with hypoxia chronic COPD (chronic obstructive pulmonary disease) [facility] Work Phone: Evaluation note* Diagnosis Onset Date Resolution Status Hypoxemia acute Chronic respiratory failure with hypoxia chronic Acute exacerbation of chroni c obstructive pulmonary disease (COPD) resolved Acute respiratory failure with hypoxia resolved DANYEL (acute kidney injury) re solved Hypokalemia resolved Hyponatremia resolved Toxic metabolic encephalopathy resolved Asthma acute Sleep apnea acute Chronic respiratory failure with hypoxia chronic COPD (chronic obstructive pulmonary disease) chronic Bronchiectasis chronic Chronic respiratory failure with hypoxia chronic COPD (chronic obstructive pulmonary disease) [facility] Work Phone: Evaluation note* Diagnosis Onset Date Resolution Status Asthma acute Sleep apnea acute Chronic respiratory failure with hypoxia chronic COPD (chronic obstructive pulmonary disease) chronic Bronchiectasis chronic Chronic respiratory failure with hypoxia chronic COPD (chronic obstructive pulmonary disease) [facility] Work Phone: Evaluation note* Diagnosis Onset Date Resolution Status Bronchiectasis chronic Chronic respiratory failure with hypoxia chronic COPD (chronic obstructive pulmonary disease) [facility] Work Phone: Evaluation note* Diagnosis Postlaminectomy syndrome of lumbosacral region- Primary Chronic idiopathic pain syndrome Osteoporosis with current pathological fracture, unspecified osteoporosis type, sequela documented in this encounter [facility] Work Phone: Evaluation note* Diagnosis Onset Date Resolution Status Bronchiectasis chronic Chronic respiratory failure with hypoxia chronic COPD (chronic obstructive pulmonary disease) chronic Oral thrush acute Chronic respiratory failure with hypoxia chronic COPD (chronic obstructive pulmonary disease) chronic Sleep apnea chronic Acute alteration in mental status acute Hypoxemia acute Acute kidney injury superimp osed on chronic kidney disease [facility] Work Phone: Evaluation note* Diagnosis Onset Date Resolution Status Bronchiectasis chronic Chronic respiratory failure with hypoxia chronic COPD (chronic obstructive pulmonary disease) chronic Oral thrush acute Chronic respiratory failure with hypoxia chronic COPD (chronic obstructive pulmonary disease) chronic Sleep apnea chronic Acute alteration in mental status acute Hypoxemia acute Acute kidney injury superimp osed on chronic kidney disease chronic Acute on chronic hypoxic respiratory failure chronic Chronic respiratory failure with hypoxia chronic DANYEL (acute kidney injury) re solved [facility] Work Phone: Evaluation note* Diagnosis Onset Date Resolution Status Oral thrush acute COPD (chronic obstructive pulmonary disease) chronic Sleep apnea chronic Acute alteration in mental status resolved Acute kidney injury superimp osed on chronic kidney disease resolved Acute on chronic hypoxic respiratory failure resolved DANYEL (acute kidney injury) re solved Hypoxemia resolved CAP (community acquired pneumonia) acute Elevated serum creatinine [place] Hypoxia acute Influenza A acute Lactic acidosis acute Leukocytosis acute Nausea & vomiting acute Oral thrush acute Sepsis acute Thrombocytosis acute COPD (chronic obstructive pulmonary disease) chronic [facility] Work Phone: Evaluation note* Diagnosis Onset Date Resolution Status Oral thrush acute COPD (chronic obstructive pulmonary disease) chronic Sleep apnea chronic Acute alteration in mental status resolved Acute kidney injury superimp osed on chronic kidney disease resolved Acute on chronic hypoxic respiratory failure resolved DANYEL (acute kidney injury) re solved Hypoxemia resolved CAP (community acquired pneumonia) acute Elevated serum creatinine [place] Hypoxia acute Influenza A acute Lactic acidosis acute Leukocytosis acute Nausea & vomiting acute Oral thrush acute Sepsis acute Thrombocytosis acute 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 on chronic anemia 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 COPD (chronic obstructive pulmonary disease) chronic [facility] Work Phone: Evaluation note* Diagnosis Secondary fibromyalgia- Primary Unspecified myalgia and myositis Postlaminectomy syndrome of lumbosacral region documented in this encounter [facility] Work Phone: Evaluation note* Diagnosis Onset Date Resolution Status Acute alteration in mental status resolved Acute kidney injury superimp osed on chronic kidney disease resolved Acute on chronic hypoxic respiratory failure resolved DANYEL (acute kidney injury) re solved Hypoxemia resolved Hypoxia acute Influenza A acute Acute on chronic anemia reso lved Elevated serum creatinine re solved Lactic acidosis resolved Leukocytosis resolved Nausea & vomiting resolved Oral thrush resolved Sepsis resolved Thrombocytosis resolved [facility] Work Phone: Evaluation note* Diagnosis Onset Date Resolution Status Hypoxia acute Influenza A acute Acute on chronic anemia reso lved Elevated serum creatinine re solved Lactic acidosis resolved Leukocytosis resolved Nausea & vomiting resolved Oral thrush resolved Sepsis resolved Thrombocytosis resolved [facility] Work Phone: Evaluation note* Diagnosis Postlaminectomy syndrome of lumbosacral region- Primary Secondary fibromyalgia Unspecified myalgia and myositis Chronic idiopathic pain syndrome documented in this encounter [facility] Work Phone: Evaluation note* Diagnosis Severe episode of recurrent major depressive disorder, 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 XIOMARA (generalized anxiety disorder) Generalized anxiety disorder Malnutrition, unspecified type (HCC) Polypharmacy Encounter for long-term (current) use of other medications High risk medication use Encounter for long-term (current) use of other medications [facility] Pneumonia due to infectious organism- Primary Fall, initial encounter Closed head injury, initial encounter Strain of neck muscle, initial encounter Aspiration pneumonia of both lower lobes, unspecified aspiration pneumonia type (Multi) Pneumonia due to infectious organism Chronic obstructive pulmonary disease, unspecified COPD type (Multi) Fall Unspecified fall Secondary fibromyalgia Unspecified myalgia and myositis Acute on chronic hypoxic respiratory failure (Multi) COPD (chronic obstructive pulmonary disease) (Multi) Chronic airway obstruction, not elsewhere classified Hypotension Unspecified hypotension Hypothyroidism Unspecified hypothyroidism Normocytic anemia Unspecified anemia CAD (coronary artery disease) Coronary atherosclerosis of unspecified type of vessel, algaaciq or graft Depression Depressive disorder, not elsewhere classified Dementia Other persistent mental disorders due to conditions classified elsewhere documented in this encounter [facility] Work Phone: Evaluation note* Diagnosis Secondary fibromyalgia- Primary Unspecified myalgia and myositis Postlaminectomy syndrome of lumbosacral region Chronic idiopathic pain syndrome documented in this encounter [facility] Work Phone: Evaluation note* Diagnosis Tobacco abuse disorder- Primary Secondary fibromyalgia Unspecified myalgia and myositis Postlaminectomy syndrome of lumbosacral region Chronic idiopathic pain syndrome Chronic right shoulder pain Pain in joint, shoulder region documented in this encounter [facility] Work Phone: Evaluation note* Diagnosis Secondary fibromyalgia Unspecified myalgia and myositis Postlaminectomy syndrome of lumbosacral region Chronic idiopathic pain syndrome Chronic right shoulder pain Pain in joint, shoulder region documented in this encounter [facility] Work Phone: Evaluation note* Diagnosis Shoulder ankylosis, right- Primary documented in this encounter [facility] Work Phone: Evaluation note* Diagnosis CAP (community acquired pneumonia) due to Pseudomonas species (CMS/HCC) (HCC)- Primary Bronchiectasis without complication (HCC) Pulmonary nodules/lesions, multiple Other diseases of lung, not elsewhere classified Smoker Tobacco use disorder [facility] CAP (community acquired pneumonia) due to Pseudomonas species (HCC)- Primary Bronchiectasis without complication (HCC) 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 Felder [...] since June 2020, phentermine 37.5 mg from Errol Michel * OPIOID RISK ASSESSMENT SCORE 06/22 [...] tried in the past physical therapy and companion caregiver and because of her wheelchair dependency physical therapy did not help her much and she is not really i nterested in companion caregiver. At least we are giving her great pain relief with the IV infusion therapy at this time. The patient already scheduled for her further appointment. No refill needed today. The patient went to [facility] companion caregiver and they told her they can do [...] able to function and play with her mvpyl-jsvlnixh-emvj-old she put him on her wheelchair and [...] 1 mg 3 times daily from from Errol Michel * OPIOID RISK ASSESSMENT SCORE 06/22 [...] tried in the past physical therapy and companion caregiver and because of her wheelchair dependency physical therapy did not help her much and she is not really i nterested in companion caregiver. At least we are giving her great pain relief with the IV infusion therapy at this time. The patient already scheduled for her further appointment. No refill needed today. The patient went to [facility] companion caregiver and they told her they can do [...] able to function and play with her ycctl-etlpjuzf-wzqu-old she put him on her wheelchair and [...] 1 mg 3 times daily from from Errol Michel * OPIOID RISK ASSESSMENT SCORE 06/22 [...] free to contact me to clarify. [facility] [place] Work Phone: [...] tried in the past physical therapy and companion caregiver and because of her wheelchair dependency physical therapy did not help her much and she is not really i nterested in companion caregiver. At least we are giving her great pain relief with the IV infusion therapy at this time. The patient already scheduled for her further appointment. No refill needed today. The patient went to [facility] companion caregiver and they told her they can do [...] able to function and play with her ecauj-xrqxknya-bzpa-old she put him on her wheelchair and [...] 1 mg 3 times daily from from Errol Michel * OPIOID RISK ASSESSMENT SCORE 06/22 [...] tried in the past physical therapy and companion caregiver and because of her wheelchair dependency physical therapy did not help her much and she is not really i nterested in companion caregiver. At least we are giving her great pain relief with the IV infusion therapy at this time. The patient already scheduled for her further appointment. No refill needed today. The patient went to [facility] companion caregiver and they told her they can do [...] able to function and play with her yivzz-wrhhhuia-fhby-old she put him on her wheelchair and [...] 1 mg 3 times daily from from Errol Michel and ketamine from me * OPIOID [...] options, risk-factor reduction, and patient/family education. * Stephen therapy, walking in the pool, at least [...] free to contact me to clarify. [facility] [place] Work Phone: [...] gradually to 3 times a day. Her stake driver wants to start her on methotrexate or [...] 1 mg 3 times daily from from Errol Michel and ketamine + pregabalin 50 mg 3 times daily from hi * OPIOID RISK ASSESSMENT SCORE 06/22 * [...] free to contact me to clarify. [facility] [place] Work Phone: Instructions* Name Dates Details Instructions not documented [facility] Work Phone: Reason for visit Narrative* Imaging (Routine) - Authorized Specialty Diagnoses / Procedures Referred By Joyce loving Referred To Contact Radiology Diagnoses Secondary fibromyalgia Postlaminectomy syndrome of lumbosacral region Chronic idiopathic pain syndrome Chronic right shoulder pain Procedures XR shoulder right 2+ views Alexandrea Maldonado, OPERATIONS ASSISTANT-TONGUE AND QUARTER STITCHER [address] [facility] [place] [address] Phone: tel: fax: Referral ID Status Reason Start Date Expiration Date Visits Requested Visits Authorized [id number] Authorized Perform Procedure 11/22/2024 11/22/2025 1 1 [facility] Work Phone: Summary Purpose Family History No [...] infarction: Father(V17.3, Z82.49) Status:Active : Mother Status:Active Relationship Condition Age at Onset Recorded Date/T henri Not Specified Malignant neoplasm Unknown father Asthma Unknown Cardiac disease Unknown grandmother Malignant neoplasm of breast Unknown Diabetes mellitus Unknown mother Cardiac disease Unknown Chronic obstructive pulmonary disease Unk nown Unknown Family Member Name Dates Details Family [...] Status:Active Advance Directives No Advanced Directives Records Found Advance Directive Response Recorded Date/ Time Advance Directives Yes November 26 9:29am Living Will Yes June 19 10:36am Power of Gem Expert Yes June 19, 2020 10:36am Advance Directive Response Recorded Date/ Time Advance Directives Yes November 26 8:29am Living Will Yes June 19 9:36am Power of Gem Expert Yes June 19, 2020 9:36am Advance Directive Response Recorded Date/ Time Name of Medical Power of Gem Expert August 23, 2022 4:26pm Advance Directives Yes November 26 9:29am Living Will Yes August 23, 2022 4:26pm Power of Gem Expert Yes August 23 4:26pm Advance Directive Response Recorded Date/ Time Name of Medical Power of Gem Expert Forrest packer August 23, 2022 9:11pm Advance Directives Yes November 26 9:29am Living Will Yes August 23, 2022 9:11pm Power of Gem Expert Yes August 23 9:11pm Advance Directive Response Recorded Date/ Time Advance Directives Yes November 26 9:29am Living Will Yes August 23, 2022 9:11pm Power of Gem Expert Yes August 23 9:11pm Advance Directive Response Recorded Date/ Time Name of Medical Power of Gem Expert Forrest March 29, 2023 1:57pm Advance Directives Yes November 26 8:29am Living Will Yes March 29 1:57pm Power of Gem Expert Yes March 29, 2023 1:57pm Advance Directive Response Recorded Date/ Time Name of Medical Power of Gem Expert Yann martin March 29, 2023 6:58pm Advance Directives Yes November 26 8:29am Living Will Yes March 29 6:58pm Power of Gem Expert Yes Saul 3rd, 2023 6:58pm Advance Directive Response Recorded Date/ Time Name of Medical Power of Gem Expert Yann martin March 29, 2023 6:58pm Name of Medical Power of Gem Expert Forrest May 03, 2023 8:53am Advance Directives Yes November 26 019 8:29am Living Will Yes May 03 8:53am Power of Gem Expert Yes May 03 024 8:53am Advance Directive Response Recorded Date/ Time Name of Medical Power of Gem Expert Yann coyne d March 29, 2023 6:58pm Name of Medical Power of Gem Expert Forrest May 03, 2023 1:48pm Advance Directives Yes November 26 8:29am Living Will Yes May 03 1:48pm Power of Gem Expert Yes May 03 024 1:48pm Advance Directive Response Recorded Date/ Time Name of Medical Power of Gem Expert Yann martin March 29, 2023 7:58pm Name of Medical Power of Gem Expert Forrest May 03, 2023 2:48pm Advance Directives Yes November 26 9:29am Living Will Yes May 03 2:48pm Power of Gem Expert Yes May 03 024 2:48pm Advance Directive Response Recorded Date/ Time Name of Medical Power of Gem Expert Forrest May 03, 2023 2:48pm Advance Directives Yes November 26 019 9:29am Living Will Yes May 03 2:48pm Power of Gem Expert Yes May 03 024 2:48pm Advance Directive Response Recorded Date/ Time Advance Directives Yes November 26 9:29am Living Will Yes May 03 2:48pm Power of Gem Expert Yes May 03 024 2:48pm Date Activated Date Inactivated Comments 11/27/2022 2:21 PM 11/29/2022 3:51 PM Question Answer Comments Full Code Order Discussed With: Patient Date Activated Date Inactivated Comments 02/14/2019 6:45 AM 02/15/2019 9:04 PM Question Answer Comments DNR Order Discussed With: Patient Date Activated Date Inactivated Comments 10/07/2017 5:40 PM 10/16/2017 4:37 PM DNRCCA/DNI.. .... Does not want intubation Question Answer Comments DNR Discussed with: Patient Date Activated Date Inactivated Comments 06/04/2024 9:18 PM Question Answer Comments Plan of Care: Code Status Discussion Completed Decision Maker: Patient Date Activated Date Inactivated Comments 06/04/2024 9:18 PM Question Answer Comments Plan of Care: Code Status Discussion Completed Decision Maker: Patient Chief Complaint * Patient Codi Blank. Patient [...] has not been seen for this injury. Chief Complaint and Reason for Visit Chief Complaint SMOKER > 30PK YRS Chief Complaint SMOKER > 30PK YRS 6 M FU Reason for Visit Bronchiectasis COPD (chronic obstructive pulmonary disease) RAUL (obstructive sleep apnea) Smoking greater than 20 pack years Chief Complaint 6 M FU Reason for Visit Bronchiectasis COPD (chronic obstructive pulmonary disease) RAUL (obstructive sleep apnea) Smoking greater than 20 pack years Chief Complaint 6 M FU ACUTE HYPOXEMIC RESPIRATORY FAILURE Reason for Visit Bronchiectasis COPD (chronic obstructive pulmonary disease) RAUL (obstructive sleep apnea) Smoking greater than 20 pack years Acute respiratory failure with hypoxia DANYEL (acute kidney injury) Hypoxemia Acute exacerbation of chronic obstructive pulmonary disease (COPD) RAUL (obstructive sleep apnea) Chief Complaint 6 M FU ACUTE HYPOXEMIC RESPIRATORY FAILURE ACUTE HYPOXEMIC RESPIRATORY FAILURE ACUTE HYPOXEMIC RESPIRATORY FAILURE ACUTE HYPOXEMIC RESPIRATORY FAILURE Reason for Visit Bronchiectasis COPD (chronic obstructive pulmonary disease) RAUL (obstructive sleep apnea) Smoking greater than 20 pack years Acute respiratory failure with hypoxia DANYEL (acute kidney injury) Hypoxemia Acute exacerbation of chronic obstructive pulmonary disease (COPD) RAUL (obstructive sleep apnea) Chief Complaint ACUTE HYPOXEMIC RESP IRATORY FAILURE ACUTE HYPOXEMIC RESPIRATORY FAILURE EKG ACUTE HYPOXEMIC RESPIRATORY FAILURE ACUTE HYPOXEMIC RESPIRATORY FAILURE ACUTE HYPOXEMIC RESPIRATORY FAILURE ACUTE HYPOXEMIC RESPIRATORY FAILURE ACUTE HYPOXEMIC RESPIRATORY FAILURE ACUTE HYPOXEMIC RESPIRATORY FAILURE ACUTE HYPOXEMIC RESPIRATORY FAILURE ACUTE HYPOXEMIC RESPIRATORY FAILURE ACUTE HYPOXEMIC RESPIRATORY FAILURE ACUTE HYPOXEMIC RESPIRATORY FAILURE ACUTE HYPOXEMIC RESPIRATORY FAILURE ACUTE HYPOXEMIC RESPIRATORY FAILURE ACUTE HYPOXEMIC RESPIRATORY FAILURE ACUTE HYPOXEMIC RESPIRATORY FAILURE ACUTE HYPOXEMIC RESPIRATORY FAILURE ACUTE HYPOXEMIC RESPIRATORY FAILURE ACUTE HYPOXEMIC RESPIRATORY FAILURE ACUTE HYPOXEMIC RESPIRATORY FAILURE ACUTE HYPOXEMIC RESPIRATORY FAILURE ACUTE HYPOXEMIC RESPIRATORY FAILURE ACUTE HYPOXEMIC RESPIRATORY FAILURE ACUTE HYPOXEMIC RESPIRATORY FAILURE ACUTE HYPOXEMIC RESPIRATORY FAILURE [facility]- [facility] FU Reason for Visit Hypoxemia Chronic respiratory failure with hypoxia Acute exacerbation of chronic obstructive pulmonary disease (COPD) Acute respiratory failure with hypoxia DANYEL (acute kidney injury) Hypokalemia Hyponatremia Toxic metabolic encephalopathy Asthma Sleep apnea Chronic respiratory failure with hypoxia COPD (chronic obstructive pulmonary disease) Chief Complaint ACUTE HYPOXEMIC RESP IRATORY FAILURE ACUTE HYPOXEMIC RESPIRATORY FAILURE ACUTE HYPOXEMIC RESPIRATORY FAILURE ACUTE HYPOXEMIC RESPIRATORY FAILURE ACUTE HYPOXEMIC RESPIRATORY FAILURE ACUTE HYPOXEMIC RESPIRATORY FAILURE ACUTE HYPOXEMIC RESPIRATORY FAILURE ACUTE HYPOXEMIC RESPIRATORY FAILURE ACUTE HYPOXEMIC RESPIRATORY FAILURE ACUTE HYPOXEMIC RESPIRATORY FAILURE ACUTE HYPOXEMIC RESPIRATORY FAILURE ACUTE HYPOXEMIC RESPIRATORY FAILURE ACUTE HYPOXEMIC RESPIRATORY FAILURE ACUTE HYPOXEMIC RESPIRATORY FAILURE ACUTE HYPOXEMIC RESPIRATORY FAILURE ACUTE HYPOXEMIC RESPIRATORY FAILURE ACUTE HYPOXEMIC RESPIRATORY FAILURE ACUTE HYPOXEMIC RESPIRATORY FAILURE ACUTE HYPOXEMIC RESPIRATORY FAILURE ACUTE HYPOXEMIC RESPIRATORY FAILURE ACUTE HYPOXEMIC RESPIRATORY FAILURE ACUTE HYPOXEMIC RESPIRATORY FAILURE ACUTE HYPOXEMIC RESPIRATORY FAILURE [facility]- [facility] FU NICOTINE DEPENDENCE 6 M FU Reason for Visit Hypoxemia Chronic respiratory failure with hypoxia Acute exacerbation of chronic obstructive pulmonary disease (COPD) Acute respiratory failure with hypoxia DANYEL (acute kidney injury) Hypokalemia Hyponatremia Toxic metabolic encephalopathy Asthma Sleep apnea Chronic respiratory failure with hypoxia COPD (chronic obstructive pulmonary disease) Bronchiectasis Chronic respiratory failure with hypoxia COPD (chronic obstructive pulmonary disease) Chief Complaint [facility]- [facility] FU NICOTINE DEPENDENCE 6 M FU CHRONIC RESPITORY FAILURE WITH HYPOXIA CHRONIC RESPITORY FAILURE WITH HYPOXIA Reason for Visit Asthma Sleep apnea Chronic respiratory failure with hypoxia COPD (chronic obstructive pulmonary disease) Bronchiectasis Chronic respiratory failure with hypoxia COPD (chronic obstructive pulmonary disease) Chief Complaint NICOTINE DEPENDENCE 6 M FU CHRONIC RESPITORY FAILURE WITH HYPOXIA CHRONIC RESPITORY FAILURE WITH HYPOXIA FALL FACIAL NUMBNESS Reason for Visit Bronchiectasis Chronic respiratory failure with hypoxia COPD (chronic obstructive pulmonary disease) Chief Complaint 6 M FU CHRONIC RESPITORY FAILURE WITH HYPOXIA CHRONIC RESPITORY FAILURE WITH HYPOXIA FALL FACIAL NUMBNESS 3 M FU ALTERED MENTAL STATUS WITH HYPOXIA Reason for Visit Bronchiectasis Chronic respiratory failure with hypoxia COPD (chronic obstructive pulmonary disease) Oral thrush Chronic respiratory failure with hypoxia COPD (chronic obstructive pulmonary disease) Sleep apnea Acute alteration in mental status Hypoxemia Acute kidney injury superimposed on chronic kidney disease Chief Complaint 6 M FU CHRONIC RESPITORY FAILURE WITH HYPOXIA CHRONIC RESPITORY FAILURE WITH HYPOXIA FALL FACIAL NUMBNESS 3 M FU ALTERED MENTAL STATUS WITH HYPOXIA ALTERED MENTAL STATUS WITH HYPOXIA ALTERED MENTAL STATUS WITH HYPOXIA Reason for Visit Bronchiectasis Chronic respiratory failure with hypoxia COPD (chronic obstructive pulmonary disease) Oral thrush Chronic respiratory failure with hypoxia COPD (chronic obstructive pulmonary disease) Sleep apnea Acute alteration in mental status Hypoxemia Acute kidney injury superimposed on chronic kidney disease Acute on chronic hypoxic respiratory failure Chronic respiratory failure with hypoxia DANYEL (acute kidney injury) Chief Complaint FALL FACIAL NUMBNESS 3 M FU ALTERED MENTAL STATUS WITH HYPOXIA ALTERED MENTAL STATUS WITH HYPOXIA ALTERED MENTAL STATUS WITH HYPOXIA INFLUENZA A, SEVERE SEPSIS, COPD Reason for Visit Oral thrush COPD (chronic obstructive pulmonary disease) Sleep apnea Acute alteration in mental status Acute kidney injury superimposed on chronic kidney disease Acute on chronic hypoxic respiratory failure DANYEL (acute kidney injury) Hypoxemia CAP (community acquired pneumonia) Elevated serum creatinine Hypoxia Influenza A Lactic acidosis Leukocytosis Nausea & vomiting Oral thrush Sepsis Thrombocytosis COPD (chronic obstructive pulmonary disease) Chief Complaint FALL FACIAL NUMBNESS 3 M FU ALTERED MENTAL STATUS WITH HYPOXIA ALTERED MENTAL STATUS WITH HYPOXIA ALTERED MENTAL STATUS WITH HYPOXIA HYPOXIA 2/2 INFLUENZA A HYPOXIA 2/2 INFLUENZA A HYPOXIA 2/2 INFLUENZA A HYPOXIA 2/2 INFLUENZA A HYPOXIA 2/2 INFLUENZA A HYPOXIA 2/2 INFLUENZA A Reason for Visit Oral thrush COPD (chronic obstructive pulmonary disease) Sleep apnea Acute alteration in mental status Acute kidney injury superimposed on chronic kidney disease Acute on chronic hypoxic respiratory failure DANYEL (acute kidney injury) Hypoxemia CAP (community acquired pneumonia) Elevated serum creatinine Hypoxia Influenza A Lactic acidosis Leukocytosis Nausea & vomiting Oral thrush Sepsis Thrombocytosis Acute on chronic anemia COPD (chronic obstructive pulmonary disease) Chief Complaint ALTERED MENTAL STATU S WITH HYPOXIA ALTERED MENTAL STATUS WITH HYPOXIA ALTERED MENTAL STATUS WITH HYPOXIA HYPOXIA 2/2 INFLUENZA A HYPOXIA 2/2 INFLUENZA A HYPOXIA 2/2 INFLUENZA A HYPOXIA 2/2 INFLUENZA A HYPOXIA 2/2 INFLUENZA A HYPOXIA 2/2 INFLUENZA A HYPOXIA 2/2 INFLUENZA A Reason for Visit Acute alteration in mental status Acute kidney injury superimposed on chronic kidney disease Acute on chronic hypoxic respiratory failure DANYEL (acute kidney injury) Hypoxemia Hypoxia Influenza A Acute on chronic anemia Elevated serum creatinine Lactic acidosis Leukocytosis Nausea & vomiting Oral thrush Sepsis Thrombocytosis Chief Complaint HYPOXIA 2/2 INFLUENZ A A HYPOXIA 2/2 INFLUENZA A HYPOXIA 2/2 INFLUENZA A HYPOXIA 2/2 INFLUENZA A HYPOXIA 2/2 INFLUENZA A HYPOXIA 2/2 INFLUENZA A HYPOXIA 2/2 INFLUENZA A PROLIA Reason for Visit Hypoxia Influenza A Acute on chronic anemia Elevated serum creatinine Lactic acidosis Leukocytosis Nausea & vomiting Oral thrush Sepsis Thrombocytosis Chief Complaint PROLIA Reason for Referral Specialty Diagnoses / Procedures Referred By Joyce loving Referred To Contact Radiology Diagnoses Postlaminectomy syndrome of lumbosacral region Chronic idiopathic pain syndrome Osteoporosis with current pathological fracture, unspecified osteoporosis type, sequela Osteoporosis Procedures XR DEXA bone density Vanna Hendricks MD [address] [facility] [place] [address] Referral ID Status Reason Start Date Expiration Date Visits Requested Visits Authorized [id number] Pending Review Perform Procedure 03/03/2023 03/02/2024 1 1 Additional Source Comments INFORMATION SOURCE (unrecogn ized section and content) DATE CREATED AUTHOR 05/25/2019 [facility] DATE CREATED AUTHOR AUTHOR'S ORGANIZ ATION 12/05/2022 [facility] DATE CREATED AUTHOR AUTHOR'S ORGANIZ ATION 12/10/2022 [facility] DATE CREATED AUTHOR AUTHOR'S ORGANIZ ATION 01/18/2023 [facility] DATE CREATED AUTHOR AUTHOR'S ORGANIZ ATION 2024 [facility] DATE CREATED AUTHOR AUTHOR'S ORGANIZ ATION 06/25/2024 [facility] DATE CREATED AUTHOR AUTHOR'S ORGANIZ ATION 01/02/2025 [facility] DATE CREATED AUTHOR AUTHOR'S ORGANIZ ATION 02/23/2025 [facility] DATE CREATED AUTHOR AUTHOR'S ORGANIZ ATION 03/02/2025 [facility] DATE CREATED AUTHOR AUTHOR'S ORGANIZ ATION 03/09/2025 [facility] Goals (unrecognized section and content) Goals may be documented in a n alternate sectionGoals may be documented in an alternate sectionGoals may be documented in an alternate sectionGoals may be documented in an alternate sectionGoals may be documented in an alternate sectionGoals may be documented in an alternate sectionGoals may be documented in an alternate sectionGoals may be documented in an alternate sectionGoals may be documented in an alternate sectionGoals may be documented in an alternate sectionGoals may be documented in an alternate sectionGoals may be documented in an alternate sectionGoals may be documented in an alternate section Care Teams (unrecognized sec tion and content) Team Status: Active Member Role Status Dates Dr. Errol Michel , DO Family Provider Active Dr. Errol Michel DO Primary Care Provider Active Team Status: Inactive Member Role Status Dates Dr. Errol Michel DO Primary Care Provider, Referring P rovider Active Bonita Acevedo TALENT DEVELOPMENT CONSULTANT, TALENT DEVELOPMENT CONSULTANT-C Attending Provider Active Team Status: Inactive Member Role Status Dates Dr. Errol Michel DO Primary Care Provide r, Attending Provider, Referring Provider Active Team Status: Inactive Member Role Status Dates Dr. Errol Michel DO Primary Care Provider, Attending P rovider Active Team Status: Inactive Member Role Status Dates Dr. Errol Michel DO Primary Care Provider Active Dr. Cyn French MD Attending Provider, Referring Provider Active Team Status: Inactive Member Role Status Dates Dr. Errol Michel DO Primary Care Provider Active Dr. Bonita Dixon , DO Attending Provider Active Team Status: Active Member Role Status Dates Dr. Errol Michel DO Primary Care Provide r, Attending Provider, Referring Provider Active Team Status: Active Member Role Status Dates Dr. Errol Michel DO Primary Care Provider Active Dr. Reece Leon MD Emergency Provider Active Dr. Samuel Goldsmith MD Admit Provider, Attending Pro vider Active Team Status: Active Member Role Status Dates Dr. Errol Michel DO Primary Care Provider Active Dr. Reece Leon MD Emergency Provider Active Dr. Samuel Goldsmith MD Admit Provider, Other Provide r Active Dr. Allyssa Gardiner MD Attending Provider, Other Provid er Active Team Status: Active Member Role Status Dates Dr. Errol Michel DO Primary Care Provider Active Dr. Néstor Betts MD Attending Provider Active Team Status: Active Member Role Status Dates Dr. Errol Michel DO Primary Care Provider Active Dr. Jonathan Somers MD Attending Provider Active Team Status: Active Member Role Status Dates Dr. Errol Michel DO Primary Care Provider Active Dr. Reece Leon MD Emergency Provider Active Dr. Samuel Goldsmith MD Admit Provider, Other Provide r Active Dr. Yaw Reyna MD Attending Provider, Other Provi sri Active Dr. Allyssa Gardiner MD Other Provider Active Team Status: Active Member Role Status Dates Dr. Errol Michel DO Primary Care Provider Active Dr. Reece Leon MD Emergency Provider Active Dr. Samuel Goldsmith MD Admit Provider, Other Provide r Active Dr. Yaw Reyna MD Attending Provider, Other Provi sri Active Dr. Allyssa Gardiner MD Other Provider Active Dr. Henry Page MD Other Provider Active Dr. Caesar Salgado , DO Other Provider Active Dr. Erickson Fitzgerald MD Other Provider Active Dr. Sebastian Rich MD Other Provider Active Bonita Acevedo TALENT DEVELOPMENT CONSULTANT, TALENT DEVELOPMENT CONSULTANT-C Other Provider Active Team Status: Active Member Role Status Dates Dr. Errol Michel DO Primary Care Provider Active Dr. Reece Leon MD Emergency Provider Active Dr. Samuel Goldsmith MD Admit Provider, Other Provide r Active Dr. Yaw Reyna MD Attending Provider Active Dr. Allyssa Gardiner MD Other Provider Active Dr. Henry Page MD Other Provider Active Dr. Caesar Salgado , DO Other Provider Active Dr. Erickson Fitzgerald MD Other Provider Active Dr. Sebastian Rich MD Other Provider Active Bonita Acevedo TALENT DEVELOPMENT CONSULTANT, TALENT DEVELOPMENT CONSULTANT-C Other Provider Active Team Status: Active Member Role Status Dates Dr. Errol Michel , DO Primary Care Provider Active Dr. Néstor Betts MD Attending Provider Active Dr. Allyssa Gardiner MD Referring Provider Active Team Status: Active Member Role Status Dates Dr. Errol Michel , DO Primary Care Provider Active Dr. Angel Fried MD Attending Provider Active Dr. Samuel Goldsmith MD Referring Provider Active Team Status: Active Member Role Status Dates Dr. Errol Michel , DO Primary Care Provider Active Dr. Reece Leon MD Emergency Provider Active Dr. Samuel Goldsmith MD Admit Provider, Other Provide r Active Dr. Yaw Reyna MD Other Provider Active Dr. Allyssa Gardiner MD Other Provider Active Dr. Henry Page MD Other Provider Active Dr. Caesar Salgado DO Attending Provider, Other Provide r Active Dr. Erickson Fitzgerald MD Other Provider Active Dr. Sebastian Rich MD Other Provider Active Bonita Acevedo TALENT DEVELOPMENT CONSULTANT, TALENT DEVELOPMENT CONSULTANT-C Other Provider Active Dr. Cherelle Almendarez DO Referring Provider Active Team Status: Active Member Role Status Dates Dr. Errol Michel , DO Primary Care Provider Active Dr. Reece Leon MD Emergency Provider Active Dr. Samuel Goldsmith MD Admit Provider, Other Provide r Active Dr. Yaw Reyna MD Attending Provider, Other Provi sri Active Dr. Allyssa Gardiner MD Other Provider Active Dr. Henry Page MD Other Provider Active Dr. Caesar Salgado , DO Other Provider Active Dr. Erickson Fitzgerald MD Other Provider Active Dr. Sebastian Rich MD Other Provider Active Bonita Acevedo TALENT DEVELOPMENT CONSULTANT, TALENT DEVELOPMENT CONSULTANT-C Other Provider Active Dr. Vane Lisa MD Active Team Status: Active Member Role Status Dates Dr. Errol Michel , DO Primary Care Provider Active Dr. Reece Leon MD Emergency Provider Active Dr. Samuel Goldsmith MD Admit Provider, Other Provide r Active Dr. Allyssa Gardiner MD Other Provider Active Dr. Henry Page MD Attending Provider, Other Provid er Active Dr. Caesar Salgado , DO Other Provider Active Dr. Erickson Fitzgerald MD Other Provider Active Dr. Sebastian Rich MD Other Provider Active Bonita Acevedo TALENT DEVELOPMENT CONSULTANT, TALENT DEVELOPMENT CONSULTANT-C Other Provider Active Dr. Cherelle Almendarez , Referring Provider, Other Provide r Active Dr. Yaw Reyna MD Other Provider Active Team Status: Active Member Role Status Dates Dr. Errol Michel , Primary Care Provider Active Dr. Reece Leon MD Emergency Provider Active Dr. Samuel Goldsmith MD Admit Provider, Other Provide r Active Dr. Allyssa Gardiner MD Other Provider Active Dr. Henry Page MD Other Provider Active Dr. Caesar Salgado , Other Provider Active Dr. Erickson Fitzgerald MD Other Provider Active Dr. Sebastian Rich MD Other Provider Active Bonita Acevedo NP, TALENT DEVELOPMENT CONSULTANT-C Other Provider Active Dr. Cherelle Almendarez , Attending Provider, Other Provide r Active Dr. Yaw Reyna MD Other Provider Active Team Status: Active Member Role Status Dates Dr. Errol Michel , Primary Care Provider Active Dr. Reece Leon MD Emergency Provider Active Dr. Samuel Goldsmith MD Admit Provider, Other Provide r Active Dr. Allyssa Gardiner MD Other Provider Active Dr. Cherelle Almendarez , Referring Provider, Other Provide r Active Dr. Yaw Reyna MD Other Provider Active Dr. Henry Page MD Attending Provider, Other Provid er Active Dr. Caesar Salgado , Other Provider Active Dr. Erickson Fitzgerald MD Other Provider Active Dr. Sebastian Rich MD Other Provider Active Bonita Acevedo TALENT DEVELOPMENT CONSULTANT, TALENT DEVELOPMENT CONSULTANT-C Other Provider Active Team Status: Active Member Role Status Dates Dr. Errol Michel , DO Primary Care Provider Active Dr. Reece Leon MD Emergency Provider Active Dr. Samuel Goldsmith MD Admit Provider, Other Provide r Active Dr. Allyssa Gardiner MD Other Provider Active Dr. Cherelle Almendarez , DO Referring Provider, Other Provide r Active Dr. Yaw Reyna MD Other Provider Active Dr. Henry Page MD Other Provider Active Dr. Caesar Salgado , DO Other Provider Active Dr. Erickson Fitzgerald MD Attending Provider, Other Pro vider Active Dr. Sebastian Rich MD Other Provider Active Bonita Acevedo NP, TALENT DEVELOPMENT CONSULTANT-C Other Provider Active Team Status: Active Member Role Status Dates Dr. Errol Michel , DO Primary Care Provider Active Dr. Reece Leon MD Emergency Provider Active Dr. Samuel Goldsmith MD Admit Provider, Other Provide r Active Dr. Allyssa Gardiner MD Other Provider Active Dr. Cherelle Almendarez , Attending Provider, Other Provide r Active Dr. Yaw Reyna MD Other Provider Active Dr. Henry Page MD Other Provider Active Dr. Caesar Salgado , Other Provider Active Dr. Erickson Fitzgerald MD Other Provider Active Dr. Sebastian Rich MD Other Provider Active Bonita Acevedo NP, TALENT DEVELOPMENT CONSULTANT-C Other Provider Active Team Status: Inactive Member Role Status Dates Dr. Errol Michel , DO Primary Care Provider Active Dr. Reece Leon MD Emergency Provider Active Dr. Samuel Goldsmith MD Admit Provider, Other Provide r Active Dr. Allyssa Gardiner MD Other Provider Active Dr. Cherelle Almendarez , Attending Provider Active Dr. Yaw Reyna MD Other Provider Active Dr. Henry Page MD Other Provider Active Dr. Caesar Salgado DO Other Provider Active Dr. Erickson Fitzgerald MD Other Provider Active Dr. Sebastian Rich MD Other Provider Active Bonita Acevedo NP, TALENT DEVELOPMENT CONSULTANT-C Other Provider Active Team Status: Active Member Role Status Dates Dr. Errol Michel , DO Primary Care Provider Active Dr. Cyn French MD Attending Provider, Referring Provider Active Team Status: Inactive Member Role Status Dates Dr. Errol Michel , DO Primary Care Provider, Referring P rovider Active Dr. Henry Page MD Attending Provider Active Team Status: Inactive Member Role Status Dates Dr. Errol Michel DO Primary Care Provider Active Bonita Acevedo TALENT DEVELOPMENT CONSULTANT, TALENT DEVELOPMENT CONSULTANT-C Attending Provider, Referrin g Provider Active Team Status: Active Member Role Status Dates Dr. Errol Michel DO Primary Care Provider Active Dr. Henry Page MD Referring Provider, Other Provid er Active Dr. Caesar Salgado , DO Attending Provider Active Team Status: Inactive Member Role Status Dates Dr. Errol Michel DO Primary Care Provider Active Dr. Henry Page MD Attending Provider, Referring Pr ovider Active Supervisor Purification Relationship Specialty Start Date End Date Errol Michel DO [address] [place] [id number] PCP - General 01/10/20 Team Status: Active Member Role Status Dates Dr. Errol Michel DO Primary Care Provider Active Damon Angel MD Emergency Provider Active Dr. David Blackwell , DO Admit Provider, Attending Provider Active Team Status: Active Member Role Status Dates Dr. Errol Michel DO Primary Care Provider Active Damon Angel MD Emergency Provider Active Dr. David Blackwell , DO Admit Provider, Other Pro vider Active Dr. Le Alba MD Other Provider Active Dr. Henry Page MD Other Provider Active Dr. Caesar Salgado , DO Other Provider Active Dr. Dorothy Tenorio MD Attending Provider, Other Provi sri Active Dr. Sebastian Rich MD Other Provider Active Bonita Acevedo TALENT DEVELOPMENT CONSULTANT, TALENT DEVELOPMENT CONSULTANT-C Other Provider Active Team Status: Active Member Role Status Dates Dr. Errol Michel DO Primary Care Provider Active Damon Angel MD Emergency Provider Active Dr. David Blackwell , DO Admit Provider, Other Pro vider Active Dr. Le Alba MD Attending Provider, Other Prov ider Active Dr. Henry Page MD Other Provider Active Dr. Caesar Salgado , DO Other Provider Active Dr. Dorothy Tenorio MD Other Provider Active Dr. Sebastian Rich MD Other Provider Active Bonita Acevedo TALENT DEVELOPMENT CONSULTANT, TALENT DEVELOPMENT CONSULTANT-C Other Provider Active Team Status: Inactive Member Role Status Dates Dr. Errol iMchel DO Primary Care Provider Active Damon Angel MD Emergency Provider Active Dr. David Blackwell , DO Admit Provider, Other Pro vider Active Dr. Le Alba MD Attending Provider Active Dr. Henry Page MD Other Provider Active Dr. Caesar Salgado , DO Other Provider Active Dr. Dorothy Tenorio MD Other Provider Active Dr. Sebastian Rich MD Other Provider Active Bonita Acevedo TALENT DEVELOPMENT CONSULTANT, TALENT DEVELOPMENT CONSULTANT-C Other Provider Active Team Status: Active Member Role Status Dates Dr. Errol Michel , DO Primary Care Provider Active Damon Angel MD Emergency Provider Active Dr. David Blackwell , DO Admit Provider, Other Pro vider Active Dr. Le Alba MD Referring Provider, Other Prov ider Active Dr. Henry Page MD Other Provider Active Dr. Caesar Salgado , DO Other Provider Active Dr. Dorothy Tenorio MD Attending Provider, Other Provi sri Active Dr. Sebastian Rich MD Other Provider Active Bonita Acevedo TALENT DEVELOPMENT CONSULTANT, TALENT DEVELOPMENT CONSULTANT-C Other Provider Active Team Status: Active Member Role Status Dates Dr. Errol Michel , DO Primary Care Provider Active Dr. Néstor Kirkpatrick , DO Emergency Provider Active Dr. Cherelle Almendarez , DO Admit Provider, Attending Provide r Active Team Status: Active Member Role Status Dates Dr. Errol Michel , DO Primary Care Provider Active Dr. Néstor Kirkpatrick , DO Emergency Provider Active Dr. Cherelle Almendarez , DO Admit Provider, Att ending Provider, Other Provider Active Team Status: Active Member Role Status Dates Dr. Errol Michel , DO Primary Care Provider Active Dr. Néstor Kirkpatrick , DO Emergency Provider Active Dr. Cherelle Almendarez , DO Admit Provider, Other Provider Ac tive Dr. David Blackwell , DO Other Provider Active Dr. Sree Diggs , DO Other Provider Active Ursula Acuña NP-C Attending Provider Active Team Status: Active Member Role Status Dates Dr. Errol Michel , DO Primary Care Provider Active Dr. Néstor Kirkpatrick , DO Emergency Provider Active Dr. Cherelle Almendarez , DO Admit Provider, Other Provider Ac tive Dr. David Blackwell , DO Attending Provider, Other Provider Active Dr. Sree Diggs , DO Other Provider Active Team Status: Active Member Role Status Dates Dr. Errol Michel , DO Primary Care Provider Active Dr. Sree Diggs , DO Attending Provider Active Team Status: Active Member Role Status Dates Dr. Errol Michel , DO Primary Care Provider Active Dr. Néstor Kirkpatrick , DO Emergency Provider Active Dr. Cherelle Almendarez , DO Admit Provider, Other Provider Ac tive Dr. David Blackwell , DO Other Provider Active Dr. Sree Diggs , DO Attending Provider, Other Prov ider Active Team Status: Inactive Member Role Status Dates Dr. Errol Michel , DO Primary Care Provider Active Dr. Néstor Kirkpatrick , DO Emergency Provider Active Dr. Cherelle Almendarez , DO Admit Provider, Other Provider Ac tive Dr. David Blackwell , DO Attending Provider Active Dr. Sree Diggs , DO Other Provider Active Supervisor Purification Relationship Specialty Start Date End Date Errol Michel DO [address] [place] [address] PCP - General Family Medicine 04/18/23 Team Status: Active Member Role Status Dates Dr. Errol Michel , DO Primary Care Provider Active Dr. Sree Diggs , DO Attending Provider Active Dr. David Blackwell , DO Referring Provider Active Team Status: Active Member Role Status Dates Dr. Errol Michel , DO Primary Care Provider Active Dr. Néstor Kirkpatrick , DO Emergency Provider Active Dr. Cherelle Almendarez , DO Admit Provider, Other Provider Ac tive Dr. David Blackwell , DO Referring Provider, Other Provider Active Dr. Sree Diggs , DO Attending Provider, Other Prov ider Active Supervisor Purification Relationship Specialty Start Date End Date Errol Michel DO [address] [place] [address] PCP - General Family Medicine 04/18/23 Supervisor Purification Relationship Specialty Start Date End Date Errol Michel DO [address], [place] [id number] PCP - General Family Medicine 10/14/16 Praneeth Dixon [address] [place] [address] Orthopedics Orthopedics 11/10/19 Supervisor Purification Relationship Specialty Start Date End Date Errol Michel DO [address] [place], [place] [address] PCP - General Family Medicine 10/14/16 Praneeth Dixon [address] [place] [address] Orthopedics Orthopedics 11/10/19 Supervisor Purification Relationship Specialty Start Date End Date Errol Michel DO [address] [place], [place] [id number] PCP - General Family Medicine 10/14/16 Praneeth Dixon [address] [place] [address] Orthopedics Orthopedics 11/10/19 Supervisor Purification Relationship Specialty Start Date End Date Errol Michel DO [address] [place] [phone] PCP - General Family Medicine 04/18/23 Supervisor Purification Relationship Specialty Start Date End Date Errol Michel DO [address] [place] [address] PCP - General Family Medicine 04/18/23 Supervisor Purification Relationship Specialty Start Date End Date Errol Michel DO [address] [place] [phone] PCP - General Family Medicine 04/18/23 Supervisor Purification Relationship Specialty Start Date End Date Errol MichelDO [address] [place] [address] PCP - General Family Medicine 04/18/23 Supervisor Purification Relationship Specialty Start Date End Date Errol MichelDO [address] [place] [address] PCP - General Family Medicine 04/18/23 Supervisor Purification Relationship Specialty Start Date End Date Errol MichelDO [address] [place] [phone] PCP - General Family Medicine 04/18/23 Supervisor Purification Relationship Specialty Start Date End Date Errol Michel [address] [place], [place] [id number] PCP - General Family Medicine 11/29/24 Supervisor Purification Relationship Specialty Start Date End Date Errol Michel [address] [place], [place] [id number] PCP - General Family Medicine 11/29/24 Supervisor Purification Relationship Specialty Start Date End Date Errol Michel [address] [place], [place] [phone] PCP - General Family Medicine 11/29/24 Reason for Visit (unrecogniz ed section and content) Reason Comments Follow-up Back Pain Reason Comments Follow-up Patient here to disc uss the bone density test that was done and follow-up on IV infusion therapy. Reason Comments Follow-up Med Management Patient also does IV infusion therapy orders Reason Comments New Patient Evaluation Thelma eval memory Reason Comments Patient Question labs Reason Comments Orders Results Reason Comments Fall Specialty Diagnoses / Procedures Referred By Contac t Referred To Contact Diagnoses Closed head injury, initial encounter Strain of neck muscle, initial encounter Fall, initial encounter Aspiration pneumonia of both lower lobes, unspecified aspiration pneumonia type (Multi) Community acquired bacterial pneumonia Pneumonia due to infectious organism Procedures no coded services Miriam Mén[place] [address] [place] [address] Phone: tel: fax: [facility] [address] [place] [address] Phone: tel: Referral ID Status Reason Start Date Expiration Date Visits Re quested Visits Authorized [id number] 1 1 Reason Comments Follow-up Restart infusions du e to being hospital for a month. Was getting them every 3 weeks. 100% relief for 2 weeks. Pain level 9 located everywhere. No meds. Reason Comments Follow-up States she has 50 % relief, states when she's doing yard bwork or work [place] home the pain gets worse. Reason Comments Follow-up Right shoulder pain Specialty Diagnoses / Procedures Referred By Joyce loving Referred To Contact Diagnoses Shoulder ankylosis, right Vanna Hendricks MD [address] [facility] [place] [address] Phone: tel: fax: Referral ID Status Reason Start Date Expiration Date V isits Requested Visits Authorized [id number] Pending Review 12/01/2024 12/01/2025 1 1 Reason Comments New Patient Pseudomonas sputum/w ork up Specialty Diagnoses / Procedures Referred By Contamarilis t Referred To Contact Infectious Diseases Diagnoses Allergy status to other antibiotic agents Other bacterial infections of unspecified site +Pseudomonas aeruginosa sputum cx Procedures HI OFFICE/OUTPATIENT NEW MODERATE MDM 45 MINUTES Bonita Acevedo [address] [place] [address] Phone: tel: fax: [facility] [address] [facility] [address] [place] [address] Phone: tel: fax: Referral ID Status Reason Start Date Expiration Date Visits Re quested Visits Authorized [id number] Closed 11/29/2024 11/29/2025 1 1 Reason Onset Date Comments Other 01/05/2025 Referring Pulm o ffice concerns regarding TALENT DEVELOPMENT CONSULTANT ID visit. Reason Comments Follow-up Bronchiectasis Source Comments (unrecognize d section and content) In the event this informatio n is protected by the Federal Confidentiality of Alcohol and Drug Abuse Patient Records regulations: The Federal rules restrict any use of the information to criminally investigate or prosecute any alcohol or drug abuse patient.[facility] the event this information is protected by the Federal Confidentiality of Alcohol and Drug Abuse Patient Records regulations: The Federal rules restrict any use of the information to criminally investigate or prosecute any alcohol or drug abuse patient.[facility] the event this information is protected by the Federal Confidentiality of Alcohol and Drug Abuse Patient Records regulations: The Federal rules restrict any use of the information to criminally investigate or prosecute any alcohol or drug abuse patient.[facility] the event this information is protected by the Federal Confidentiality of Alcohol and Drug Abuse Patient Records regulations: The Federal rules restrict any use of the information to criminally investigate or prosecute any alcohol or drug abuse patient.[facility] Scheduled Active and Recently Administ ered Medications (unrecognized section and content) Medication Order 06/05/2024 06/06/2024 06/07/2024 baclofen (Lioresal) tablet 10 mg 10 mg, oral, 2 times daily, First dose on 06/05/24 at 0000 0021 (Given - Provider: Yesi Hanson RN)0830 (Given - Provider: Payal Zapata, DEWAYNE)2100 (Given - Provider: Lisa Ramos, DEWAYNE) 0844 (Given - Provider: Errol Iniguez, DEWAYNE)2139 (Given - Provider: Nehal Eagle, DEWAYNE) 08 (Given - Provider: Errol Iniguez, DEWAYNE)2100 (Due) busPIRone (Buspar) tablet 10 mg 10 mg, oral, 2 times daily, First dose on 06/05/24 at 0000 0021 (Given - Provider: Yesi Hanson RN)08 (Given - Provider: Payal Zapata, DEWAYNE)2058 (Given - Provider: Lisa Ramos RN) 0843 (Given - Provider: Errol Iniguez, DEWAYNE)2139 (Given - Provider: Nehal Eagle, DEWAYNE) 08 (Given - Provider: Errol Iniguez RN)2100 (Due) clopidogrel (Plavix) tablet 75 mg 75 mg, oral, Daily, First dose on 06/05/24 at 0900 0831 (Given - Provider: Payal Zapata RN) 0843 (Given - Provider: Errol Iniguez RN) 08 (Given - Provider: Errol Iniguez RN) donepezil (Aricept) tablet 10 mg 10 mg, oral, Nightly, First dose on 06/05/24 at 0000 0021 (Given - Provider: Yesi Hanson RN)210 (Given - Provider: Lisa Ramos RN) 2139 (Given - Provider: Nehal Eagle RN) 2100 (Due) DULoxetine (Cymbalta) DR capsule 60 mg (CANCELED) 60 mg, oral, Daily, First dose on 06/05/24 at 0900, Do not crush or chew. 0830 (Given - Provider: Payal Zapata RN) 0843 (Given - Provider: Errol Iniguez, DEWAYNE) DULoxetine (Cymbalta) DR capsule 60 mg 60 mg, oral, 2 times daily, First dose (after last modification) on Thu06/06/24 at 2100, Do not crush or chew. 2140 (Given - Provider: Nehal Eagle RN) 0828 (Given - Provider: Errol Iniguez, DEWAYNE)2100 (Due) enoxaparin (Lovenox) syringe 40 mg 40 mg, subcutaneous, Every 24 hours, First dose on Thu06/04/24 at 2145, Indications: deep vein thrombosis prevention 0021 (Given - Provider: Yesi Hanson RN)210 (Given - Provider: Lisa Ramos, DEWAYNE) 2139 (Given - Provider: Nehal Eagle RN) 2144 (Due) fluticasone (Flonase) nasal spray 2 spray 2 spray, Each Nostril, Daily, First dose on 06/05/24 at 1215, Shake gently. Before first use, prime pump (press 6 times until fine spray appears). After use, clean tip and replace cap. 1322 (Given - Provider: Payal Zapata RN - Comment: bundle care) 0847 (Given - Provider: Errol Iniguez RN) 0832 (Given - Provider: Errol Iniguez RN) fluticasone furoate-vilanteroL (Breo Ellipta) 200-25 mcg/dose inhaler 1 puff (CANCELED) 1 puff, inhalation, Daily RT, First dose on 06/05/24 at 0700, Rinse mouth with water after use to reduce aftertaste and incidence of candidiasis. Do not swallow. 0943 (Given - Provider: Fiordaliza Collins, PIERCER OPERATOR - Comment: rt workflow) 0909 (Given - Provider: Manuel Cowart, SHIRIN) fluticasone furoate-vilanteroL (Breo Ellipta) 200-25 mcg/dose inhaler 1 puff 1 puff, inhalation, Daily RT, First dose (after last modification) on Thu06/07/24 at 0900, Rinse mouth with water after use to reduce aftertaste and incidence of candidiasis. Do not swallow. 0847 (Given - Provider: Mnauel Cowart RRT) guaiFENesin (Mucinex) 12 hr tablet 600 mg 600 mg, oral, 2 times daily, First dose on 06/04/24 at 2145, Administer with plenty of fluids to ensure proper action. Do not crush, chew, or split. 0032 (Not Given - Provider: Yesi Hanson RN - Reason: Patient/family refused)08 (Given - Provider: Payal Zapata RN)2058 (Given - Provider: Lisa Ramos, DEWAYNE) 0843 (Given - Provider: Errol Iniguez, DEWAYNE)214 (Given - Provider: Nehal Eagle, DEWAYNE) 0828 (Given - Provider: Errol Iniguez RN)2100 (Due) ipratropium-albuteroL (Duo-Neb) 0.5-2.5 mg/3 mL nebulizer solution 3 mL 3 mL, nebulization, 3 times daily, First dose (after last modification) on 06/05/24 at 0900 0928 (Given - Provider: Fiordaliza Collins RRT - Comment: was incomplete in workflow. When I went to do the 1500 it over rode this treatment.)1645 (Given - Provider: Fiordaliza Collins RRT - Comment: RT workflow)2002 (Given - Provider: Kamila Soliman) 09 (Given - Provider: Manuel Cowart RRT)1508 (Given - Provider: Manuel Cowart RRT)2054 (Given - Provider: Kamila Soliman) 0846 (Given - Provider: Manuel Cowart RRT)1500 (Due)2100 (Due) levothyroxine (Synthroid, Levoxyl) tablet 125 mcg 125 mcg, oral, Daily, First dose on 06/05/24 at 0600 0602 (Given - Provider: Yesi Hanson RN) 0627 (Given - Provider: Lisa Ramos RN) 0509 (Given - Provider: Nehal Eagle RN) midodrine (Proamatine) tablet 5 mg 5 mg, oral, 2 times daily, First dose on 06/05/24 at 0000, Avoid dosing after the evening meal or within 4 hours of bedtime to prevent supine hypertension unless indicated for vasopressor sparing in the ICU. 0830 (Not Given - Provider: Payal Zapata RN - Reason: Other - Comment: BP 138/63)2058 (Given - Provider: Lisa Ramos RN) 0843 (Given - Provider: Errol Iniguez, DEWAYNE)2140 (Given - Provider: Nehal Eagle, DEWAYNE) 08 (Given - Provider: Errol Iniguez RN)2100 (Due) pantoprazole (ProtoNix) EC tablet 40 mg 40 mg, oral, Daily before breakfast, First dose on 06/05/24 at 0700, Do not crush, chew, or split. 0602 (Given - Provider: Yesi Hanson RN) 0627 (Given - Provider: Lisa Ramos RN) 0509 (Given - Provider: Nehal Eagle RN) predniSONE (Deltasone) tablet 40 mg 40 mg, oral, Daily, First dose on 06/05/24 at 1245 1322 (Given - Provider: Payal Zapata RN) 0844 (Given - Provider: Errol Iniguez RN) 0828 (Given - Provider: Errol Iniguez RN) QUEtiapine (SEROquel) tablet 25 mg 25 mg, oral, Nightly, First dose on 06/05/24 at 0000 0021 (Given - Provider: Yesi Hanson RN)2103 (Given - Provider: Lisa Ramos, DEWAYNE) 214 (Given - Provider: Nehal Eagle RN) 2100 (Due) tiotropium (Spiriva Respimat) 2.5 mcg/actuation inhaler 2 puff (CANCELED) 2 puff, inhalation, Daily RT, First dose on 06/05/24 at 0700, Instruct to hold breath for a few seconds after each inhalation. Before first use, prime inhaler by actuating until aerosal cloud is seen, then actuating 3 more times. Label inhaler with 3 month expiration date after inserting canister. 935 (Given - Provider: Fiordaliza Collins, PIERCER OPERATOR - Comment: RT workflow) 908 (Given - Provider: Manuel Cowart, SHIRIN) PRN Medication Order 06/05/2024 06/06/2024 06/07/2024 acetaminophen (Tylenol) tablet 650 mg 650 mg, oral, Every 4 hours PRN, fever (temp greater than 38.0 C), pain mild (1-3), first line, greater than or equal to 38 C, Starting on 06/04/24 at 8, If ordered PRN for pain, nurse is permitted to administer this medication for higher pain scores based on patient preference? Yes 08 (Given - Provider: Payal Zapata RN - Comment: given for pain) benzocaine-menthol (Cepastat Sore Throat) lozenge 1 lozenge 1 lozenge, Mouth/Throat, Every 2 hour PRN, sore throat, Starting on 06/04/24 at 2117 cyclobenzaprine (Flexeril) tablet 5 mg 5 mg, oral, 3 times daily PRN, muscle spasms, Starting on 06/04/24 at 2330 0602 (Given - Provider: Yesi Hanson RN)1840 (Given - Provider: Payal Zapata RN) dextromethorphan-guaifen esin (Robitussin DM) 10-100 mg/5 mL oral liquid 5 mL 5 mL, oral, Every 4 hours PRN, cough, Starting on 06/04/24 at 2117 haloperidol lactate (Haldol) injection 5 mg 5 mg, intramuscular, 3 times daily PRN, agitation, Starting on 06/04/24 at 2330, Patients receiving IV haloperidol should be on continuous cardiac monitoring. ipratropium-albuteroL (Duo-Neb) 0.5-2.5 mg/3 mL nebulizer solution 3 mL 3 mL, nebulization, Every 2 hour PRN, wheezing, shortness of breath, Starting on 06/04/24 at 2153 LORazepam (Ativan) tablet 0.5 mg 0.5 mg, oral, 2 times daily PRN, anxiety, Starting on 06/04/24 at 2330 ondansetron (Zofran) injection 4 mg 4 mg, intravenous, Every 8 hours PRN, nausea/vomiting, first line, Starting on 06/04/24 at 2118, 1st Line. Give IV if patient is unable to take orally. If inadequate response within 60 minutes, proceed to next-line agent for same PRN reason or contact provider if no further options ordered. When administering via IV Push, administer over 3-5 minutes. oxygen (O2) therapy inhalation, Continuous PRN - O2/gases, other, Starting on 06/05/24 at 2100, Titrate to maintain SpO2 greater than 90% and less than 95% Baseline 3LPM, Device: Nasal Cannula, Rate in liters per minute: 3 LPM, Keep O2 Sat Above: 90% 0956 (Start - Provider: Fiordaliza Collins, PIERCER OPERATOR)121 (Start - Provider: Payal Zapata, DEWAYNE)2001 (Rate Verify Medical Gas - Provider: Kamila Soliman)2002 (Rate Change Medical Gas - Provider: Kamila Soliman) 912 (Rate Verify Medical Gas - Provider: Manuel Cowart, PIERCER OPERATOR)2054 (Rate Verify Medical Gas - Provider: Kamila Soliman)2113 (Stopped - Provider: Kamila Soliman) oxygen (O2) therapy inhalation, Continuous PRN - O2/gases, other, Starting on 06/05/24 at 2303, Device: Non-Invasive Ventilation, Rate in liters per minute: 4 LPM, FIO2: 36, Keep O2 Sat Above: 90% 230 (Start - Provider: Kamila Soliman) 2114 (Start - Provider: Kamila Soliman) 08 (Stopped - Provider: Manuel Cowart, SHIRIN) polyethylene glycol (Glycolax, Miralax) packet 17 g 17 g, oral, Daily PRN, constipation, Starting on 06/04/24 at 2118, Bowel Regimen - for prevention of constipation. No Frequency Medication Order 06/05/2024 06/06/2024 06/07/2024 meropenem (Merrem) injection 1 gram - [employer] Override Pull (COMPLETED) Starting on 06/05/24 at 0537, For 1 dose, Created by cabinet override 0605 (Given - Provider: Yesi Hanson RN) sodium chloride 0.9% infusion - [employer] Override Pull (COMPLETED) Starting on 06/05/24 at 0537, For 1 dose, Created by cabinet override 0605 (New Bag - Provider: Yesi Hanson RN) FOR RECORDS PERTAINING TO PATIENTS WHO ARE [...] BE BASED ON THE PRIMARY CLINICAL RECORDS. [facility], [facility]. provides no warranty or guarantee of the accuracy or completeness of information in this document.
== END | disposition home or self-care (01) ==
LOC: LAB 09:07
PROVIDERS: PCP Family Medicine; Referring Provider Student in an Organized Health Care Education/Training Program; Visit Provider Student in an Organized Health Care Education/Training Program
DX: D75.839 Thrombocytosis, unspecified (principal)
CPT/HCPCS: 36415; 85025

== ENCOUNTER → 2025-04-06 | Outpatient (CLI) | payer MEDICARE, SELFPAY ==
--- NOTE | 2025-04-06 08:22 | CT_ITS ---
PROCEDURE: CHEST WITHOUT CONTRAST 04/06/2025 REASON FOR EXAM: LUNG MASS IN SMOKER Right middle lobe opacity. TECHNIQUE: Chest CT without contrast. Coronal and Sagittal reconstruction series were provided. One or more dose reduction techniques were used (e.g., Automated exposure control, adjustment of the mA and/or kV according to patient size, use of iterative reconstruction technique RADIATION DOSE SUMMARY: CTDlvol: 6.1 mGy DLP: 195 mGycm COMPARISON: April 2024 FINDINGS: Thyroid gland: Negative. Lungs: Emphysematous changes. There is improvement in the atelectasis in the right middle lobe. Underlying emphysematous change. Mild patchy airspace disease both lungs, improved as well. Nodular opacities in the left lower lobe. Correlate with previous biopsy and PET-CT. Pleura: Negative for pleural effusion or pneumothorax. Airways: Previously extensive soft tissue in the right mainstem bronchus extending of the right middle lobe and lower lobes and as well as in the left bronchus. These have markedly improved though there still remains soft tissue in the left lower lobe bronchus. Additionally there is bronchiectasis. Imaged bronchi and trachea otherwisenegative. Mediastinum: Negative for mediastinal mass. Lymph nodes: Negative for axillary, mediastinal or hilar adenopathy. Heart and Vasculature: Heart normal size. Moderate vascular calcifications of the thoracic aorta. Coronary Artery Calcifications: Severe vascular calcifications of the coronary arteries Upper Abdomen: Imaged portions negative. Hardware: None. Bones: Pedicle screws and rods mid to lower thoracic spine. Compression fracture in the midthoracic spine, old age-appropriate degenerative changes of the thoracic spine. CT/Chest without Contrast IMPRESSION: Emphysematous changes. Improved appearance of lungs with diminished right middle lobe atelectasis. Previously extensive soft tissue in the both bronchi favor aspiration. This is improved. Some residual soft tissue noted in the left mainstem bronchus. Left lower lobe nodular opacities. Not definitively changed since April 2024 Reading Location: [id number]
== END | disposition home or self-care (01) ==
LOC: CT 08:16
PROVIDERS: PCP Family Medicine; Referring Provider Nurse Practitioner Acute Care; Visit Provider Nurse Practitioner Acute Care
DX: R91.8 Other nonspecific abnormal finding of lung field (principal)
CPT/HCPCS: 71250